=== PATIENT | female | born 1960 | race Caucasian/White ===

== ENCOUNTER 2016-04-12 13:01 | Inpatient (IN) | payer OTHER ==
[~2016-04-12] VITALS: Ht 170.2 cm; Wt 75.7 kg
[~2016-04-12 13:01] MED LIST: *GLUCOMETE; *MAMMOGRAM; *MAYHAVE; /AMIT100TA PO; /ESOM40CA; /ESOM40CA OR; /GLIM2TA; /GLIM4TA; /GUAIMAX PO; /INSULEV SC; /INSULEV SQ; /INSUNPH SC; /INSUREG SQ; /IPRA3SP INH; /ONDA4TA; /ONDA4TA OR; /ONDA4TA PO; /PANT40TA PO; /RANI15TA PO; /SUCR1TA OR; /SUCR1TA PO; 3 DA0.1C TOP; A AND D TD; ACET650T12 PO; ACET65TA; ADVAIR250 INHALATION; ADVAIR500 INHALATION; AFRI0.65; ALBOTERNEB INHALATION; ALBU17IN INH; ALBU17IN2 INH; ALBU17IN2 INJ; ALBU83IN; ALBU83IN IN; ALBU83IN INH; ALBUTEROL INH; ALBUTEROL INH INH; ALBUTEROL INHALATION; ALCOHOL TOP; ALLE180T33 PO; ALLE25CA PO; AMAR1TAB PO; AMARYL PO; AMIT10TA2 PO; AMIT150T; AMIT150T OR; AMIT150T PO; AMIT24CA PO; AMIT50TA PO; AMIT50TA2; AMIT50TA2 OR; AMIT50TA2 PO; AMITIZA PO; AMITRIP50 PO; AMITRIPTYLINE; AMITZA PO; AMMO12LO TOP; ASPI81TA13 PO; ASPI81TA3 OR; ASTELIN; ASTELIN INH; ASTELIN NASAL SPRAY; ATARAX25 PO; ATROVENT0.02% INH; AUG875 PO; AURASOL TOPICAL; AZEL0.1S3; AZELASTINE; Amitiza PO; BACID PO; BACTROCREA TOPICALLY; BACTROOINT TOPICALLY; BATTERY; BENA25CA2 PO; BISA10SU2; CALALOT3 TOP; CATATTS2 TOPICALLY; CEFTIN250 PO; CETI10TA; CHOL4PKT PO; CHOLPOW PO; CLAR10CA3 PO; CLAR1TAB2 PO; CLAR5CHW OR; CLAR5CHW PO; CLARITD12H PO; CLARITIN; CLARITIN PO; CLARITIN10 PO; COLA100C PO; COLA100C2; COLA100C2 OR; COLA100C2 PO; COLA50CA3 PO; COLACE PO; CORTISPOR OTIC; CYMBALTA30 PO; CYMBALTA60 PO; Cholestyramine PO; DESIOIN3; DESONIDECR TOPICAL; DICL0.1S7 TD; DIFLUC100 PO; DIFLUC150 PO; DILA2TAB OR; DILA2TAB PO; DILA2TAB2 PO; DILA4TAB PO; DILAUDID PO; DIPH2.5L; DIPH2.5L PO; DIPH2.5T14 PO; DOCU10CA PO; DOXYCYC100 PO; EFUDEX EXT; ELIDEL 1%; ELIDEL TOPICAL; ELOCONCR TOPICAL; Elavil PO; FERR325T OR; FERROUS325 PO; FEXO60CA PO; FLAGYL250 PO; FLONASESPR NASAL; FLOVENT110 PO; GAS-80CH; GEMF600T PO; GLUC1000; GLUC1000 OR; GLUC1000 PO; GLUCCOSEAC TOPICAL; GLUCLIQ7 PO; GLUCOP1000 PO; GLUCOPH500 PO; GLUCOSE TEST; HEPA100PFS IV; HEPA1INJ IV; HUMUINJ; HUMUINJ IJ; HUMUINJ SQ; HUMULINR SC; HYDR1OI TOP; HYDR4TAB PO; HYDROCCR1 TOPICAL; IMODIUM; INSUDET SC; INSUH10VL SC; INSULIN HUMULIN R; INSULIN LEVEMIR SQ; IPRA2IN INH; K-TA1TAB PO; KEFLEX250 PO; KEFLEX500 PO; KETO0.02 OU; KETOTIFEN FUMARATE; LAC-HYDRIN TOP; LACT10SO15 PO; LACT10SO8 OR; LACT10SO8 PO; LACT20EL PO; LANCMIS; LANCMIS SUB Q; LANTUS SQ; LEVA750T PO; LEVAQUI250 PO; LEVAQUI500 PO; LIDO4CRE2 TOP; LIDO5DIS TOP; LIDO5DIS36 TD; LIDOCAINE JELLY 2% TOP; LIDOCAINE JELLY TOP; LIDOCAINE/PRILOCAINE TOP; LIDOPOW EXT; LOMO2.5T PO; LOMOTA OR; LOMOTA PO; LOPI600T OR; LOPI600T PO; LORTAB5 PO; LORTTAB5 PO; MACROBID PO; MAG CITRATE PO; MAG-TAB; MAG400TA PO; MAGN1INJ2 IV; MAGN20IN4 IV; MAGN400C2 PO; MAGN400T5 PO; MAGN500T2 OR; MAGN500T2 PO; MAGNESIUM OXIDE; MAMMOGRAM; MEDROLDP PO; METF1000 PO; METF500T PO; METFORMIN; METO10TA2; METO5TAB2 OR; METO5TAB2 PO; METROCR.75 TOPICAL; MICR10CA PO; MILKSUS; MILKSUS PO; MINI2CAP; MINI2CAP OR; MINI2CAP PO; MINIPRESS PO; MIRA3350 PO; MIRALAX PO; MIRALEX OR; MIRALEX PO; MOM30SS PO; MOME50SP; MORP15TA4; MORP30TA4; MORPHINE SULFATE IR; MS C15TA5; MS C15TA5 PO; MUCINEX ER PO; MUCINEX OR; MUCINEX PO; MULT1TAB8 PO; MULTIVIT OR; MULTIVIT PO; MULTLIQ7; MYCOLOG2; NASA1SPR; NASA55AE; NASOCORT; NASONEX NASAL; NEEDLESFIN SQ; NEXI40GR PO; NEXIUM40 PO; NORMSALNS INHALATION; NOVO70VL SC; NYSTATIN POWDER TOP; NYSTATIN TOP; NYSTATINCR TOPICAL; NYSTOP TOP; NYSTPOW4 TOP; ONDA1TAB16 PO; ONDA2VL IV; ONDA4VLL IM; PEDISOL2 PO; PEG1POW PO; PENN1.5S2 TD; PENNSAID DROPS TOP; PEPTO BISMOL PO; PERC5TAB8 OR; PERC7.5T8 OR; POLYETHYLENE GLYCOL; POTA1TAB14 PO; POTA20TA PO; PRAZ2CAP PO; PRED10TA PO; PREDNISO10 PO; PREDNISO20 PO; PREDNISO50 PO; PREMAR1.25 PO; PREMARI625 PO; PREVACID15 PO; PROA1AER IN; PROCTOSOL HC PR; PROCTOSOL PR; PROCTOSOL TOP; PROV90AE; PROVENTILI; PROVENTILI INHALATION; PYRIDIU100 PO; PYRIDIU200 PO; QUES4POW PO; QUESTRAN; RANI150T PO; REGL10TA6 PO; REGLAN10 PO; SALI0.9I2 IV; SENN-22 PO; SENN15TA2 PO; SENN8.6T14; SENN8.6T14 OR; SENO8.6T10 PO; SENO8.6T5 OR; SENO8.6T9 PO; SENOKOT PO; SEREVENTIN PO; SILVADENE TOPICAL; SIMV10TA2 PO; SIMV20TA2 PO; SLOWTAB; STOO100C PO; SUCR1TA PO; SUCRPOW; SYMB16INH INH; SYMB80INH INH; SYMBICORT INH; SYR.5; SYRINS1CC SUBQ; TAP WATER ENEMA PR; TEQUIN400 PO; TESS100C PO; TESSALO100 PO; THERGRAN PO; TIZA2CAP3 PO; TIZA2TAB3 PO; TRIA55SP; TRICOR48 PO; TUMS500C; TUMS500C OR; TUMS500C PO; TUSSIONEX PO; TYL PO; TYLE325T5 PO; ULTRAM50 PO; VALI2TAB; VERA27.5; VERAMYST; VICO5TAB; VICO5TAB OR; VICOBULK OR; VICODAN PO; VICODIN PO; VICODINES TAB; VITMTA PO; VOLT1GEL; VOLT1GEL EX; VOLT1GEL EXT; VOLT1GEL TOP; VOLT1GEL2 TOP; Z-PAK PO; ZADITOR; ZANT150T PO; ZANTAC150 PO; ZITH200S OR; ZITHROM250 PO; ZITHROM500 PO; ZITHROZPAK PO; ZOCO20TA PO; ZOFR8TAB; ZOFR8TAB4 PO; ZYRT10CA PO; ZYRTECD12 PO; [UNRECOGNIZED DRUG - CODE]; [UNRECOGNIZED DRUG - CODE]; [UNRECOGNIZED DRUG - CODE] EXT; [UNRECOGNIZED DRUG - CODE] IV; [UNRECOGNIZED DRUG - CODE] PO; [UNRECOGNIZED DRUG - CODE] PO; [UNRECOGNIZED DRUG - CODE] PO; [UNRECOGNIZED DRUG - CODE] TOP; [UNRECOGNIZED DRUG - CODE] TOPICAL; [UNRECOGNIZED DRUG - OTHER]; [UNRECOGNIZED DRUG - OTHER]; [UNRECOGNIZED DRUG - OTHER]; [UNRECOGNIZED DRUG - OTHER]; [UNRECOGNIZED DRUG - OTHER]; [UNRECOGNIZED DRUG - OTHER]; [UNRECOGNIZED DRUG - OTHER]; [UNRECOGNIZED DRUG - OTHER]; [UNRECOGNIZED DRUG - OTHER]; [UNRECOGNIZED DRUG - OTHER] PO; [UNRECOGNIZED DRUG - OTHER] PR; [UNRECOGNIZED DRUG - OTHER] RECTALLY; [UNRECOGNIZED DRUG - OTHER] SC; [UNRECOGNIZED DRUG - OTHER] SC; [UNRECOGNIZED DRUG - OTHER] TD; [UNRECOGNIZED DRUG - SUPPLY]; [UNRECOGNIZED DRUG - SUPPLY] -; astelin; astepro; desitin; diclofenac PO; elavil; lidoderm patch TD; nasocort; polyethylene glycol; questran OR; saline nasal spray; veramyst; voltaren gel
[2016-04-12 14:26] LABS: BASO # 0.1 K/mm3 (0.0-0.2); BASO % 1.5 % (0.0-1.0); EOS # 0.1 K/mm3 (0.0-0.50); EOS % 1.5 % (0.0-3.0); LARGE UNSTAINED CELL # 0.1 K/mm3 (0.0-0.4); LYMPH # 1.5 K/mm3 (1.5-4.5); LYMPH % 26.9 % (24.0-44.0); MEAN CORPUSCULAR HEMOGLOBIN 30.3 pg (27.0-33.0); MEAN CORPUSCULAR VOLUME 94.7 fl (80.0-96.0); MONO # 0.3 K/mm3 (0.0-0.8); MONO % 5.2 % (0.0-5.0); NEUTROPHILS # 3.2 K/mm3 (1.8-7.7); NEUTROPHILS % 62.8 % (36.0-66.0); PLATELET COUNT, AUTOMATED 305 k/mm3 (150-450); RED CELL DISTRIBUTION WIDTH 14.1 % (11.5-14.5); WHITE BLOOD COUNT 5.1 K/mm3 (4.0-10.0)
[2016-04-12] MEDS ORDERED: HYDROmorphone 2 MG TAB As Ordered ONE ×2 (14:26→18:59)
[2016-04-12 14:44] LABS: ANION GAP 11 MEQ/L (8-16); BLOOD UREA NITROGEN 11 MG/DL (7-18); CALCIUM LEVEL 10.1 MG/DL (8.5-10.1); CARBON DIOXIDE LEVEL 29 MEQ/L (21-32); CHLORIDE LEVEL 97 MEQ/L (98-107); GLOMERULAR FILTRATION RATE > 60.0 (>51); GLUCOSE, FASTING 251 MG/DL (70-105); MAGNESIUM LEVEL 2.2 MG/DL (1.8-2.4); POTASSIUM SERUM 4.1 MEQ/L (3.5-5.1); SODIUM LEVEL 137 MEQ/L (136-145)
--- NOTE | 2016-04-12 15:01 | REP ---
PA chest: Cardiac silhouette is moderately enlarged without change. There is a right IJ venous Port-A-Cath with tip in the expected location of the atriocaval junction. Bibasilar atelectasis/scarring and/or infiltrates are noted, left greater than right. A spinal stimulator is identified with superior tip projected over the T9 and T10 vertebral bodies. Impression : stable moderate cardiomegaly with bibasilar atelectasis/scarring and/or infiltrate, not significantly changed Flat and upright KUB: Numerous surgical clips are projected over the abdomen and pelvis consistent with previous postsurgical changes well as ventral hernia repair. The patient does have a left lower quadrant ileostomy. There is no evidence of bowel obstruction or free intraperitoneal air. There is small to moderate air is present within the stomach Impression : stable moderate cardiomegaly with bibasilar atelectasis/scarring and/or infiltrate, not significantly changed Signed by Kerry Ham MD 04/12/2016 02:53 P
[2016-04-12] MEDS ORDERED: ACETAMINOPHEN TAB 650MG DOSE (2X325MG) PO PRN (15:15)
[2016-04-12] MEDS ORDERED: GLUCOSE 4 GM CHEW TABLET PO PRN (15:45)
[2016-04-12] MEDS ORDERED: diphenhydrAMINE 25 MG CAP PO PRN (15:45)
[2016-04-12] MEDS ORDERED: DEXTROSE 50% 50 ML SYRINGE IV PRN (15:45)
[2016-04-12] MEDS ORDERED: ALBUTEROL 90 MCG/ACT 8GM HFA INHALER INH PRN (15:45)
[2016-04-12] MEDS ORDERED: GLUCAGON FOR INJ 1 MG VIAL (J1610) SC PRN (15:45)
[2016-04-12] MEDS ORDERED: GAS125CH PO (15:48)
[2016-04-12] MEDS ORDERED: TIZA2TA PO (15:48)
[2016-04-12] MEDS ORDERED: PEDISOL2 PO (15:51)
[2016-04-12] MEDS ORDERED: LACT10SO29 PO (15:51)
[2016-04-12] MEDS ORDERED: ONDA4VLL IM (15:55)
--- NOTE | 2016-04-12 16:08 | HPEPDOC ---
General Date of Admission Apr 12, 2016 at 15:14 Primary Care Physician: Tutu Sanchez MD Chief Complaint The patient is a 55-year-old female admitted with a reason for visit of Abdominal Pain. Source: Patient, Family Exam Limitations: No limitations History of Present Illness 55-year-old female with a past medical history of type 2 diabetes mellitus, asthma, dyslipidemia, and a complex past surgical history involving multiple hernia repairs listed below presents to the ER for the fifth time in the last 7 days with a chief complaint of abdominal pain. The patient states that for the past few days she has had a decreased output from her ostomy bag. She states that she has not been able to keep food down because she keeps on vomiting. She denies any episodes of fevers, chills, chest pain, lightheadedness, dizziness, recent travel, antibiotic use, or any sick contacts. Of note, the patient has had multiple imaging studies done over the last 7 days including an abdominal x- ray today which have not revealed any acute findings. A call was placed the patient's primary care physician Dr. Sanchez and he advised an observation admission for the patient to monitor ostomy input and output. In the ER, the patient's laboratory findings were all found to be within normal limits. There are no overt signs of obstruction or any kind of underlying infection noted. We will admit the patient for observation and continue to monitor the patient's input and output from the ostomy bag. Home Medications Scheduled (Nasacort Allergy 24Hr) 55 Mcg/Act Spr 1 SPRAY NA QHS (Reported) (Glucerna) 1 Liq Liq 1 LIQ PO QPM (Reported) (Pedialyte) 1 Faisal Faisal 1 FAISAL PO DAILY (Reported) Amitriptyline HCl (Amitriptyline HCl) 50 Mg Tab 150 MG PO QHS (Reported) Amitriptyline HCl (Amitriptyline HCl) 50 Mg Tab 50 MG PO QAM (Reported) Azelastine Hydrochloride (Azelastine HCl) 137 Mcg/[place] Spr 1 SPRAY NA BID ( Reported) Budesonide/Formoterol (Symbicort 160-4.5 Mcg/Act) 60 Puff/Inhaler Aers 2 PUFF INH BID (Reported) Cetirizine HCl (Zyrtec Allergy) 10 Mg Cap 10 MG PO DAILY (Reported) Gemfibrozil (Lopid) 600 Mg Tab 600 MG PO DAILY (Reported) Heparin Sodium Flush (Porcine) (Heparin Lock Flush) Unknown Strength Inj Unknown Dose IV 2XW (Reported) FRIDAY AND FRIDAY Insulin Aspart Protamine/Aspar (Novolog Mix 70/30 (70-30) 100 Unit/ml) 1 Units/ 0.01 Ml Susp 20 UNITS SC DAILY (Reported) TAKE WITH LUNCH Insulin Detemir (Levemir) 1 Units/0.01 Ml Susp 30 UNITS SC DAILY (Reported) Magnesium Oxide (Magnesium Oxide 400) 400 Mg Tab 400 MG PO BID (Reported) Metoclopramide HCl (Reglan) 10 Mg Tab 10 MG PO ACHS (Reported) Ondansetron (Ondansetron HCl) 4 Mg/2 Ml Inj 4 MG IM DAILY (Reported) Potassium Chloride (Klor-Con M20) 20 Meq Tabcr 20 MEQ PO DAILY (Reported) Ranitidine HCl (Ranitidine HCl) 150 Mg Tab 1 TAB PO BID (Reported) Sucralfate (Carafate) 1 Gm Tab 1 GM PO ACHS (Reported) Tizanidine HCl (Tizanidine HCl) 2 Mg Tab 1 MG PO BID (Reported) Scheduled PRN (Ketotifen Fumarate) 0.025 % Atul 1 DROP OU PRN PRN PRN ALLERGIES (Reported) (Ammonium Lactate) 12 % Lot 1 DOSE TOP BID PRN PRN DRY SKIN (Reported) Albuterol Sulfate (Ventolin Hfa) 200 Puff/8 Gm Aers 2 PUFF INH Q4H PRN PRN SHORTNESS OF BREATH (Reported) Diphenhydramine HCl (Benadryl) 25 Mg Cap 25 MG PO PRN PRN PRN ALLERGIES ( Reported) Hydromorphone HCl (Dilaudid) 4 Mg Tab 4 MG PO Q4H PRN PRN PAIN (Reported) MDD 5 TABLETS Lactulose (Lactulose) 10 Gm/15 Ml Faisal 30 ML PO Q4H PRN PRN CONSTIPATION ( Reported) Simethicone (Gas Relief Extra Strength) 125 Mg Chw 125 MG PO QID PRN PRN GAS PAIN (Reported) Allergies Coded Allergies: Latex (Verified Allergy, Severe, THROAT CLOSES, 06/06/14) Oxycodone (Verified Allergy, Intermediate, HIVES, 07/13/12) Penicillins (Verified Allergy, Intermediate, HIVES, 07/13/12) Bitely (Verified Allergy, Intermediate, HIVES, 01/11/15) Sulfa Drugs (Verified Allergy, Intermediate, HIVES, 01/11/15) TAPE (Verified Allergy, Intermediate, PAPER TAPE - BLISTERS,HIVES, 06/05/10 ) Tomato (Verified Allergy, Intermediate, HIVES, 01/11/15) Azithromycin (Unverified Allergy, Mild, HIVES, 07/07/14) Nitrofurantoin (Unverified Allergy, Mild, HIVES, 07/07/14) Quinolones (Verified Allergy, Mild, CIPRO, TEQUIN - HIVES, 07/13/12) Baclofen (Verified Allergy, Unknown, SHAKING, 07/13/12) Chlorpromazine (Verified Allergy, Unknown, 07/13/12) Colchicine (Verified Allergy, Unknown, 07/13/12) Fluphenazine (Verified Allergy, Unknown, 07/13/12) Gabapentin (Verified Allergy, Unknown, 07/13/12) Ipratropium (Unverified Allergy, Unknown, 07/07/14) Mesoridazine (Verified Allergy, Unknown, 07/13/12) Perphenazine (Verified Allergy, Unknown, 07/13/12) Prochlorperazine (Verified Allergy, Unknown, 07/13/12) Red Dye (Verified Allergy, Unknown, red food dyes, 07/13/12) Tramadol (Verified Allergy, Unknown, 07/13/12) Trifluoperazine (Verified Allergy, Unknown, 07/13/12) Morphine (Verified Adverse Reaction, Severe, SEVERE H/A WITH LARGE DOSES, 07/13/12) Codeine (Verified Adverse Reaction, Intermediate, "OUT OF BODY", 07/13/12) Droperidol (Verified Adverse Reaction, Intermediate, "OUT OF BODY", EYES ROLL BACK IN HEAD, 07/13/12) Iodine (Verified Adverse Reaction, Intermediate, SEIZURES, 01/11/15) Lidocaine (Verified Adverse Reaction, Intermediate, ONLY LIDODERM PATCH: INCREASES HR WHEN APPLIED TO UPPER BODY, 07/13/12) Meperidine (Verified Adverse Reaction, Intermediate, "OUT OF BODY", SHAKY , 07/13/12) Promethazine (Verified Adverse Reaction, Intermediate, "OUT OF BODY"- PHENOTHIAZINES, 07/13/12) Replaces PHENOTHIAZINES Propoxyphene (Verified Adverse Reaction, Intermediate, "OUT OF BODY", ) Theophylline (Verified Adverse Reaction, Intermediate, SEIZURES, 01/11/15) Albuterol (Unverified Adverse Reaction, Mild, SHAKY, 07/07/14) Aspirin (Verified Adverse Reaction, Mild, ULCERS, 07/13/12) Fentanyl (Verified Adverse Reaction, Mild, NERVOUS, 07/13/12) Hydrocodone (Unverified Adverse Reaction, Mild, CONFUSION, 07/07/14) Lorazepam (Verified Adverse Reaction, Mild, ALTERS MIND, HALLUCINATIONS, ) Midazolam (Verified Adverse Reaction, Mild, NERVOUS, 07/13/12) Pregabalin (Verified Adverse Reaction, Mild, SHAKING/ANXIETY, 01/11/15) Tiagabine (Verified Adverse Reaction, Mild, NERVOUS, 07/13/12) Past Medical History Medical History As noted in HPI Surgical History Removal of a scalp tumor in 1984. Lumpectomies age 16 and 21. Total hysterectomy. Two ovarian cysts and mass at age 21. Bilateral sympathectomy in 1987. Arteriovenous (AV) fistula repair in the left leg 1988. Cholecystectomy in the . Small bowel obstruction 2001. Abdominal hernia repair in 2004. Ventral hernia repair in 2009. Dorsal column stimulator placement and replacement 2010. Small portion of the small bowel resected and ventral hernia repair, ileostomy in 2012. Cyst removed from right nostril by Dr. Carrillo. Repair of two hernias and a stoma in 2012. Two hernia repairs in 2013. Parastomal hernia repair June 2014. Family History Significant Family History: No pertinent family hx Social History * Smoker: non-smoker Alcohol: denies Drugs: denies Review of Symptoms Other systems 10 point review of systems negative unless otherwise specified in HPI. Physical Examination ENT Exam: Positive: Atraumatic, Mucous membr. moist/pink Chest Exam: Positive: Clear to auscultation, Normal air movement Heart Exam: Positive: Rate Normal, Regular Rhythm Telemetry: Positive: Sinus Abdomen Exam: Positive: BS Hypoactive, Other (mild tenderness to deep palpation in the left lower quadrant. No rebound tenderness, guarding, or rigidity noted. Left lower quadrant ostomy noted with no surrounding erythema, tenderness, or purulent discharge.), Soft Extremity Exam: Negative: Tenderness Laboratory Data Labs 24H Laboratory Tests 2 04/12/16 14:11: Anion Gap 11, White Blood Count 5.1, Red Blood Count 3.81L, Hemoglobin 11.6L, Hematocrit 36.1, Mean Corpuscular Volume 94.7, Mean Corpuscular Hemoglobin 30.3 , Mean Corpuscular Hemoglobin Concent 32.0, Red Cell Distribution Width 14.1, Platelet Count 305, Neutrophils (%) (Auto) 62.8, Lymphocytes (%) (Auto) 26.9, Monocytes (%) (Auto) 5.2H, Eosinophils (%) (Auto) 1.5, Basophils (%) (Auto) 1.5H , Neutrophils # (Auto) 3.2, Lymphocytes # (Auto) 1.5, Monocytes # (Auto) 0.3, Eosinophils # (Auto) 0.1, Basophils # (Auto) 0.1, Blood Urea Nitrogen 11, Creatinine 0.80, Sodium Level 137, Potassium Level 4.1, Chloride Level 97L, Carbon Dioxide Level 29, Calcium Level 10.1, Glomerular Filtration Rate > 60.0, Large Unclassified Cells # 0.1, Large Unclassified Cells % 2.0, Magnesium Level 2.2 CBC/BMP Laboratory Tests 04/12/16 14:11 Calcium Level 10.1, Red Blood Count 3.81 L, Mean Corpuscular Volume 94.7, Mean Corpuscular Hemoglobin 30.3, Mean Corpuscular Hemoglobin Concent 32.0, Red Cell Distribution Width 14.1, Neutrophils (%) (Auto) 62.8, Lymphocytes (%) (Auto) 26.9, Monocytes (%) (Auto) 5.2 H, Eosinophils (%) (Auto) 1.5, Basophils (%) ( Auto) 1.5 H, Neutrophils # (Auto) 3.2, Lymphocytes # (Auto) 1.5, Monocytes # ( Auto) 0.3, Eosinophils # (Auto) 0.1, Basophils # (Auto) 0.1 Assessment/Plan Problems: (1) Abdominal pain Status: Chronic Response to Treatment: Stable Problem Text: X-ray of the abdomen with no acute findings. CT abdomen imaging noted from 04/06, also with no acute findings. Patient's abdomen mildly distended, however soft on palpation. Ostomy site and left lower quadrant noted with no remarkable findings. We will continue to have the patient eat a by mouth diet and monitor input and output. Continue bowel care regimen. (2) Diabetes mellitus type 2 in obese Status: Chronic Response to Treatment: Stable Problem Text: We will continue the patient on Levemir 15 units daily, and insulin sliding scale (3) Asthma Status: Chronic Response to Treatment: Stable Problem Text: No acute shortness of breath or wheezing at this time Continue albuterol, Symbicort (4) GERD (gastroesophageal reflux disease) Status: Chronic Response to Treatment: Stable Problem Text: Continue current regimen (5) Hypomagnesemia Status: Chronic Response to Treatment: Stable Problem Text: Patient serum magnesium levels actually noted to be within normal limits. Plan / VTE VTE Prophylaxis Ordered?: Yes DOREEN PAREDES MD Apr 12, 2016 16:08
[2016-04-12] MEDS: SYMBICORT 160/4.5MCG INHALER 6GM INH SCH (21:00)
[2016-04-12] MEDS: HumaLOG INSULIN (NovoLOG) PER UNIT SC SCH (21:00)
--- NOTE | 2016-04-12 21:44 | EDDOCDS ---
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 nothing out of dy ostomy for 1 week. Risk factors: the patient reports no vaginal bleeding. Adult Sepsis Screening: The patient does not have new or worsening altered mentation. Patient's respiratory rate is less than 22. Systolic blood pressure is greater than 100. Patient has a qSOFA score of 0- Negative Sepsis Screen. Suicide/Homicide risk assessment- the patient denies having any suicidal and/or homicidal ideations and does not present with any other emotional, behavioral or mental health complaints. 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 Transition of care: patient was not received from another setting of care. 13:04 Acuity: THADDEUS Level 3 dy 13:04 Method Of Arrival: Walkin/Carried/Asstd dy Triage Assessment: 13:11 General: Appears in no apparent distress. Pain: Location: suprapubic area. HIV dy screening NA for this visit Offered previously. GI: Reports lower abdominal pain. MIRROR INSPECTOR: 13:11 LMP N/A - Hysterectomy dy Historical: - Allergies: Albuterol (shaky); Aspirin (stomach irritation); Ativan (hallucination); Azithromycin (Hives); BACLOFEN (shakiness); Chlorpromazine (shakiness); Ciprofloxacin (Hives); Codeine Phosphate (anxious); Colchicine (anxious); Darvocet-N 100 (nervous); Droperidol (Dystonic reaction); Fentanyl (nervous); Fluphenazine; GABAPENTIN (Rash); Gabitril (nervous); hydrocodone (confusion); IODINEIODINE CONTAINING ("body our of control"); Ipratropium [place]; Latex (Anaphylaxis); Lidoderm (Rash); Lyrica (nervous); Macrobid (shaky); Meperidine (Sleepy); mesoridazine; Midazolam (shaky and jumpy); Morphine (severe RAMIREZ); Oxycodone HCl (Hives); PENICILLINS (Hives); perphenazine (nervous); Phenergan (nervous); Prochlorperazine Maleate; Promethazine (Dystonic reaction); QUINOLONES (shaky, itchy); Readi-Cat 2; Red Dye; SULFA (SULFONAMIDES) (Hives); Tape (Rash); Theophylline (Seizures); TIAGABINE; Toradol (itchy); Tramadol HCl (nervous); Trifluoperazine; Vicodin (shaky, nervous); - Home Meds: 1. albuterol sulfate 90 mcg/actuation Inhl aepb 2 puffs every 4 hours month ago 2. Dilaudid 4 mg Oral tab 1 tab every 4 hours (Last dose: 04/12/2016 06:30) 3. Zofran IM 4 mg every 8 hours (Last dose: 04/12/2016 07:00) 4. tizanidine 2 mg oral tab 1 tabs BID PRN 5. ranitidine HCl 150 mg Oral tbef 150 mg twice a day 6. Reglan 10 mg Oral tab 1 tab 30 mins before meals 7. Symbicort 160-4.5 mcg/actuation inhalation HFAA 2 puffs 2 times per day 8. amitriptyline 50 mg Oral tab 1 tab once daily 1 tab in am , 3 tabs at bedtime 9. astelin 137mcg/spray twice a day 10. Benadryl 25 mg Oral cap 1 cap as needed 11. Carafate 1 gram Oral tab 1 tab 4 times per day 12. cetirizine 10 mg oral tab 1 tab once daily 13. gemfibrozil 600 mg Oral tab daily 14. Glucerna Oral liqd daily 15. heparin flush fro port 16. Levemir 30 units subcutaneous daily 17. Lomotil 2.5-0.025 mg oral tab as needed 18. magnesium oxide 400 mg Oral tab 400 mg three times a day 19. Nasacort AQ 55 mcg Nasal spra 1 spray once daily 20. Novolog 20 units Sub-Q daily - PMHx: acute bronchitis; Asthma; chronic abdominal pain; chronic pain syndrome; Diabetes - IDDM: controlled; DVT; Fatty Liver, Non-alchoholic; GERD; Hernia; Hypercholesterolemia; hypokalemia; hypomagnesia; Kidney stones; necrotic bowel; UTI; - PSHx: Cholecystectomy; Lumpectomy- Left; Lumpectomy- Right; bilateral knee surgery; Appendectomy; Hysterectomy; Ileostomy Construction; av fistula left leg; tumors removed from right arm; - The history from nurses notes was reviewed: and I agree with what is documented. - Social history: Smoking status: Patient states was never smoker of tobacco. No barriers to communication noted, The patient speaks fluent Korean, Speaks appropriately for age. - : The pt / caregiver states he / she is not on anticoagulants. Home medication list is obtained from the patient. - Exposure Risk Screening:: None identified. - Immunization history:: All immunizations up-to-date. - Family history: Not pertinent. - Social history:: the patient is a non-smoker, the patient does not drink alcohol. Screenin:17 Screening information is obtained from the patient. Fall risk: At risk due to gait jmb disturbance, Patient uses cane. Assistance ADL's: requires no assistance with activities of daily living. Abuse/DV Screen: The patient / caregiver reports he/she is: not in a situation that causes fear, pain or injury. Nutritional screening: No deficits noted. home support is adequate. 16:50 Advance Directives: Currently, there is a health care proxy, Sabina Olson - Mother. lf1 Assessment: 13:17 General: Appears in no apparent distress, Behavior is appropriate for age, cooperative, jmb Patient up to bathroom, voices she needed to urinate. . Pain: Location: abdomen Pain currently is 9 out of 10 on a pain scale. Neurological: Level of Consciousness is awake, alert, obeys commands, Oriented to person, place, time, Farrowing Manager are equal bilaterally Gait is steady, Speech is normal, Facial symmetry appears normal, Facial symmetry: tongue is midline. Cardiovascular: Capillary refill < 3 seconds Heart tones present Pulses are all present. Rhythm is regular. Respiratory: Airway is patent Respiratory effort is even, unlabored, Respiratory pattern is regular, symmetrical, Breath sounds are clear bilaterally. GI: Abdomen is distended, Colostomy site Colostomy has liquid stool present in bag. Bowel sounds present X 4 quads. hypoactive in right upper quadrant, left upper quadrant and right lower quadrant Abd is soft X 4 quads. Derm: Skin is normal. Musculoskeletal: Range of motion intact in all extremities. 14:13 General: Appears in no apparent distress, comfortable, Behavior is appropriate for age, jmb cooperative, Patient laying on stretcher with family at bedside. Patient watching television, appears in no distress or discomfort. Patient voices no complaints at this time. . General: Patient and family at bedside discussing method of pain medication administration. NO discussion about pain medication at this time or provider discussion. Family discussed that due to not accessing port, best method would be to do injection. . Neurological: Level of Consciousness is awake, alert, obeys commands, Oriented to person, place, time. Respiratory: Airway is patent Respiratory effort is even, unlabored, Respiratory pattern is regular, symmetrical. 14:20 General: Family pulled this business writer into room, asked this business writer who was preparation room manager for Dr. nancy Sanchez's office. Informed family and patient that this business writer was not sure. Family stated that she walked to Dr. Antunez and asked him if they were going to give her anything for pain in which family stated "He said he is going to give her her home medication." Family reported "Her home medication doesn't help her, if it did then why would I bring her in here?" This business writer stated that he is unsure of plan until provider discusses with this business writer. Family then asked if Paxton Vazquez could see her instead, informed family that they were told that a physician must see patient instead of another provider and that Paxton Vazquez is an WELT BEATER in which family stated oh, ok, so he wouldn't be able to see patient then due to request of Dr. Sanchez. NO further complaints at this time. . 15:09 General: Appears in no apparent distress, comfortable, Behavior is appropriate for age, jmb cooperative, Previous concern report to Nurse Oil Extractor Selena Becker RN. Patient laying on stretcher, appears comfortable. NO voiced complaints at this time. . Neurological: Level of Consciousness is awake, alert, obeys commands, Oriented to person, place, time. Respiratory: Airway is patent Respiratory effort is even, unlabored, Respiratory pattern is regular, symmetrical. 15:20 General: Hospitalist at bedside. lf1 15:29 Adult Sepsis Screening: The patient does not have new or worsening altered mentation. lf1 Patient's respiratory rate is less than 22. Systolic blood pressure is greater than 100. Patient has a qSOFA score of 0- Negative Sepsis Screen. General: Appears in no apparent distress, comfortable, Behavior is cooperative. Pain: Location: right lower quadrant Pain currently is 10 out of 10 on a pain scale. Quality of pain is described as "smarts" Alleviated by nothing. Neurological: Level of Consciousness is awake, alert. EENT: No deficits noted. Respiratory: Respiratory effort is even, unlabored. GI: Abdomen is distended, obese, Colostomy site Pt reports minimal output in colostomy bag over last week. States only about 1 inch ribbon of stool present in bag over last week. When bag was observed to contain about 300 of liquid stool pt. stated that had accumulated since about noon today but that she normally has a more formed stool so the liquid didn't count. 16:42 General: Appears in no apparent distress, comfortable, Behavior is cooperative. Pain: lf1 Location: right lower quadrant Pain currently is 10 out of 10 on a pain scale. Neurological: Level of Consciousness is awake, alert. Respiratory: Respiratory effort is even, unlabored. Derm: Skin is normal. 18:51 General: Appears in no apparent distress, comfortable, Behavior is cooperative. Pain: lf1 Location: right lower quadrant Pain currently is 10 out of 10 on a pain scale. Neurological: Level of Consciousness is awake, alert. Respiratory: Respiratory effort is even, unlabored. 19:05 General: Appears in no apparent distress, comfortable, Behavior is cooperative. Pain: jf3 Location: left upper quadrant and left lower quadrant Pain currently is 9 out of 10 on a pain scale. Neurological: Level of Consciousness is awake, alert, Oriented to person, place, time. Cardiovascular: Capillary refill < 3 seconds Heart tones S1 S2 present Chest pain is denied. Respiratory: Airway is patent Respiratory effort is even, unlabored, Respiratory pattern is regular, symmetrical, Breath sounds are clear bilaterally. GI: Abdomen is obese, Colostomy site is clean and dry. Ostomy appliance is intact. Bowel sounds present X 4 quads. Abd is soft X 4 quads Abd is tender to palpation in left upper quadrant and left lower quadrant. Derm: Skin is pale. 20:23 General: Appears in no apparent distress, comfortable, Behavior is cooperative. jf3 Neurological: Level of Consciousness is awake, Oriented to person, place, time. Neurological: Cardiovascular: Capillary refill < 3 seconds. Respiratory: Airway is patent Respiratory effort is even, unlabored, Respiratory pattern is regular, symmetrical. Derm: Skin is pale. 21:40 General: Appears in no apparent distress, comfortable. Pain: Pain currently is 5 out of jf3 10 on a pain scale. Neurological: Level of Consciousness is awake, alert, Oriented to person, place, time. Cardiovascular: Capillary refill < 3 seconds. Respiratory: Airway is patent Respiratory effort is even, unlabored, Respiratory pattern is regular, symmetrical. Derm: Skin is pale. Vital Signs: 13:03 BP 128 / 78; Pulse 91; Resp 18 S; Temp 97.1; Pulse Ox 98% on R/A; Weight 75.3 kg (R); dd6 Height 5 ft. 7 in. (170.18 cm) (R); 15:22 BP 143 / 64; Pulse 72; Resp 18; Temp 98.5(TE); Pulse Ox 96% on R/A; Pain 10/10; lf1 20:28 BP 122 / 68; Pulse 97; Resp 18; Temp 98.5(TE); Pulse Ox 93% on R/A; Pain 5/10; jf3 13:03 Body Mass Index 26.00 (75.30 kg, 170.18 cm) dd6 Vitals: 13:03 Log In Time: April 12, 2016 at 13:01. dd6 ED Course: 13:03 Patient visited by Eduardo Chaparro PCA. dd6 13:03 Tutu Sanchez MD is Private Physician. dd6 13:03 Patient moved to Waiting dd6 13:04 Patient moved to Pre RCE dd6 13:06 Triage Initiated dy 13:12 Patient moved to 15 dy 13:17 The patient / caregiver is instructed regarding the plan of care and ED course. jmb 13:20 Patient visited by Jam Serrano RN. jmb 13:25 Juan Antunez MD is Attending Physician. pc 13:51 Patient visited by Juan Antunez MD. pc 14:04 [facility] Payment Agreement was scanned into [employer] and attached to record. lg 14:15 Patient visited by Jam Serrano RN. jmb 14:15 CBC with Diff Sent. jmb 14:20 Magnesium Level Sent. jmb 14:20 MED Profile Sent. jmb 15:05 Leif Babb is Hospitalizing Provider. pc 15:10 Patient visited by Jam Serrano RN. b 15:20 Report received from Jam Serrano RN. lf1 15:21 Patient visited by Usha Garcia RN. lf1 15:27 Abdomen, Flat\\E\\Upright,PA Chest Returned. EDMS 15:33 Patient visited by Usha Garcia RN. lf1 16:43 No IV's were initiated during this patient's visit. No procedures done that require lf1 assistance. 16:44 Patient visited by Usha Garcia RN. lf1 16:51 Patient visited by Usha Garcia RN. lf1 18:59 Report given to Randy Kc RN. lf1 19:32 Patient visited by Randy Kc RN. jf3 Administered Medications: 14:35 Drug: Dilaudid - HYDROmorphone 4 mg [hydromorphone 2 mg tablet (2 tabs)] Route: PO; jmb 15:22 Follow up: BP 143 / 64; Pulse 72 bpm; Resp 18 bpm; Temp 98.5 Temporal; Pulse Ox 96% RA; 1 Pain 01/21 Adult 19:03 Drug: Dilaudid - HYDROmorphone 4 mg [hydromorphone 2 mg tablet (2 tabs)] Route: PO; jf3 Intake: 16:43 300 ML liquid stool emptied from colostomy bag by patient. 1 Order Results: Lab Order: CBC with Diff; SPEC'M 04/12/16 14:11 Test: WHITE BLOOD COUNT; Value: 5.1; Range: 4.0-10.0; Units: K/mm3; Status: F Test: RED BLOOD COUNT; Value: 3.81; Range: 4.00-5.40; Abnormal: Below low normal; Units: M/mm3; Status: F Test: HEMOGLOBIN; Value: 11.6; Range: 12.0-16.0; Abnormal: Below low normal; Units: g/dl; Status: F Test: HEMATOCRIT; Value: 36.1; Range: 36.0-47.0; Units: %; Status: F Test: MEAN CORPUSCULAR VOLUME; Value: 94.7; Range: 80.0-96.0; Units: fl; Status: F Test: MEAN CORPUSCULAR HEMOGLOBIN; Value: 30.3; Range: 27.0-33.0; Units: pg; Status: F Test: MEAN CORPUSCULAR HGB CONC; Value: 32.0; Range: 32.0-36.5; Units: g/dl; Status: F Test: RED CELL DISTRIBUTION WIDTH; Value: 14.1; Range: 11.5-14.5; Units: %; Status: F Test: PLATELET COUNT, AUTOMATED; Value: 305; Range: 150-450; Units: k/mm3; Status: F Test: NEUTROPHILS %; Value: 62.8; Range: 36.0-66.0; Units: %; Status: F Test: LYMPH %; Value: 26.9; Range: 24.0-44.0; Units: %; Status: F Test: MONO %; Value: 5.2; Range: 0.0-5.0; Abnormal: Above high normal; Units: %; Status: F Test: EOS %; Value: 1.5; Range: 0.0-3.0; Units: %; Status: F Test: BASO %; Value: 1.5; Range: 0.0-1.0; Abnormal: Above high normal; Units: %; Status: F Test: LARGE UNSTAINED CELL %; Value: 2.0; Range: 0.0-4.0; Units: %; Status: F Test: NEUTROPHILS #; Value: 3.2; Range: 1.8-7.7; Units: K/mm3; Status: F Test: LYMPH #; Value: 1.5; Range: 1.5-4.5; Units: K/mm3; Status: F Test: MONO #; Value: 0.3; Range: 0.0-0.8; Units: K/mm3; Status: F Test: EOS #; Value: 0.1; Range: 0.0-0.50; Units: K/mm3; Status: F Test: BASO #; Value: 0.1; Range: 0.0-0.2; Units: K/mm3; Status: F Test: LARGE UNSTAINED CELL #; Value: 0.1; Range: 0.0-0.4; Units: K/mm3; Status: F Lab Order: MED Profile; [facility] 04/12/16 14:11 Test: GLUCOSE, FASTING; Value: 251; Range: 70-105; Abnormal: Above high normal; Units: MG/DL; Status: F Test: BLOOD UREA NITROGEN; Value: 11; Range: 7-18; Units: MG/DL; Status: F Test: CREATININE FOR GFR; Value: 0.80; Range: 0.55-1.02; Units: MG/DL; Status: F Test: GLOMERULAR FILTRATION RATE; Value: > 60.0; Range: >51; Status: F Test: SODIUM LEVEL; Value: 137; Range: 136-145; Units: MEQ/L; Status: F Test: POTASSIUM SERUM; Value: 4.1; Range: 3.5-5.1; Units: MEQ/L; Status: F Test: CHLORIDE LEVEL; Value: 97; Range: 98-107; Abnormal: Below low normal; Units: MEQ/L; Status: F Test: CARBON DIOXIDE LEVEL; Value: 29; Range: 21-32; Units: MEQ/L; Status: F Test: ANION GAP; Value: 11; Range: 8-16; Units: MEQ/L; Status: F Test: CALCIUM LEVEL; Value: 10.1; Range: 8.5-10.1; Units: MG/DL; Status: F Test Note: ; Units are mL/min/1.73 m2 Chronic Kidney Disease Staging per NKF: Stage I & II GFR >=60 Normal to Mildly Decreased Stage III GFR 30-59 Moderately Decreased Stage IV GFR 15-29 Severely Decreased Stage V GFR <15 Very Little GFR Left ESRD GFR <15 on BLACK TOP PAVER OPERATOR Lab Order: Magnesium Level; SPEC'M 04/12/16 14:11 Test: MAGNESIUM LEVEL; Value: 2.2; Range: 1.8-2.4; Units: MG/DL; Status: F Radiology Order: Abdomen, Flat\\E\\Upright,PA Chest Test: Abdomen, Flat\\E\\Upright,PA Chest REASON FOR EXAMINATION: Abdomen Pain; PA chest:; ; Cardiac silhouette is moderately enlarged without change. There is a right IJ; venous Port-A-Cath with tip in the expected location of the atriocaval junction.; Bibasilar atelectasis/scarring and/or infiltrates are noted, left greater than; right. A spinal stimulator is identified with superior tip projected over the; T9 and T10 vertebral bodies.; ; Impression : stable moderate cardiomegaly with bibasilar atelectasis/scarring; and/or infiltrate, not significantly changed; ; ; ; Flat and upright KUB: Numerous surgical clips are projected over the abdomen; and pelvis consistent with previous postsurgical changes well as ventral hernia; repair. The patient does have a left lower quadrant ileostomy. There is no; evidence of bowel obstruction or free intraperitoneal air.; ; There is small to moderate air is present within the stomach; ; Impression : stable moderate cardiomegaly with bibasilar atelectasis/scarring; and/or infiltrate, not significantly changed; ; ; Signed by; Kerry Ham MD 04/12/2016 02:53 P; Outcome: 15:05 Decision to Hospitalize by Provider. pc 21:41 Discharge Assessment: patient administered narcotics - yes. Patient was admitted to the [address] or transferred to another facility. The following High Risk Discharge criteria are identified: None. Admitted to Med/Surg accompanied by tech, via stretcher, with chart. Condition: stable. No special radiology studies were completed. Admission hand-off: Report Faxed Fax receipt verified by tamy, 4 pav. Property :Personal belongings accompany Pt. 21:44 Patient left the ED. [facility] Signatures: Dispatcher [employer] EDMS Juan Antunez MD MD pc Ganter, LoriLee, Jhony Powell lg, RN RN Usha Pryor RN RN lf1 Eduardo Chaparro, TEACHING SUPERVISOR TEACHING SUPERVISOR dd6 Jam Serrano RN RN jmb Farman, Justin,RN RN 3 MTDD
--- NOTE | 2016-04-12 21:44 | EDDOCDS ---
Physician Documentation [facility] Name: Rich Olson Age: 55 yrs Sex: Female : 1960 Arrival Date: 04/12/2016 Time: 13:01 Bed 15 Private MD: Tutu Sanchez Disposition: 04/12 14:54 Critical Care: Critical care not applicable. pc Disposition: 04/12/16 15:05 Hospitalization ordered by Leif Babb for Inpatient Admission. 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 - Bed requested for 4 [place]. - Status is Inpatient Admission. jf3 - Condition is Stable. - Problem is chronic. - Symptoms are unchanged. HPI: 14:54 This 55 yrs old Female presents to ER via Walkin/Carried/Asstd with pc complaints of Abdominal Pain. 14:54 The history is obtained from the patient, the patient's parent. She is complaining of pc no ostomy output, now for 10 days. He has been seen by his PCP and in this ED 4 times in the past week, for the same. Her labs, except for her chronic malabsorption-related hypomagnesemia, have been normal. A CT and 2 abdominal series have been unremarkable except for a chronic nonobstructing parastomal hernia. She has not had any fevers or chills, Resp or symptoms.. She has not been vomiting. She was directed here by here PCP today. Historical: - Allergies: Albuterol (shaky); Aspirin (stomach irritation); Ativan (hallucination); Azithromycin (Hives); BACLOFEN (shakiness); Chlorpromazine (shakiness); Ciprofloxacin (Hives); Codeine Phosphate (anxious); Colchicine (anxious); Darvocet-N 100 (nervous); Droperidol (Dystonic reaction); Fentanyl (nervous); Fluphenazine; GABAPENTIN (Rash); Gabitril (nervous); hydrocodone (confusion); IODINEIODINE CONTAINING ("body our of control"); Ipratropium [place]; Latex (Anaphylaxis); Lidoderm (Rash); Lyrica (nervous); Macrobid (shaky); Meperidine (Sleepy); mesoridazine; Midazolam (shaky and jumpy); Morphine (severe RAMIREZ); Oxycodone HCl (Hives); PENICILLINS (Hives); perphenazine (nervous); Phenergan (nervous); Prochlorperazine Maleate; Promethazine (Dystonic reaction); QUINOLONES (shaky, itchy); Readi-Cat 2; Red Dye; SULFA (SULFONAMIDES) (Hives); Tape (Rash); Theophylline (Seizures); TIAGABINE; Toradol (itchy); Tramadol HCl (nervous); Trifluoperazine; Vicodin (shaky, nervous); - Home Meds: 1. albuterol sulfate 90 mcg/actuation Inhl aepb 2 puffs every 4 hours month ago 2. Dilaudid 4 mg Oral tab 1 tab every 4 hours (Last dose: 04/12/2016 06:30) 3. Zofran IM 4 mg every 8 hours (Last dose: 04/12/2016 07:00) 4. tizanidine 2 mg oral tab 1 tabs BID PRN 5. ranitidine HCl 150 mg Oral tbef 150 mg twice a day 6. Reglan 10 mg Oral tab 1 tab 30 mins before meals 7. Symbicort 160-4.5 mcg/actuation inhalation HFAA 2 puffs 2 times per day 8. amitriptyline 50 mg Oral tab 1 tab once daily 1 tab in am , 3 tabs at bedtime 9. astelin 137mcg/spray twice a day 10. Benadryl 25 mg Oral cap 1 cap as needed 11. Carafate 1 gram Oral tab 1 tab 4 times per day 12. cetirizine 10 mg oral tab 1 tab once daily 13. gemfibrozil 600 mg Oral tab daily 14. Glucerna Oral liqd daily 15. heparin flush fro port 16. Levemir 30 units subcutaneous daily 17. Lomotil 2.5-0.025 mg oral tab as needed 18. magnesium oxide 400 mg Oral tab 400 mg three times a day 19. Nasacort AQ 55 mcg Nasal spra 1 spray once daily 20. Novolog 20 units Sub-Q daily - PMHx: acute bronchitis; Asthma; chronic abdominal pain; chronic pain syndrome; Diabetes - IDDM: controlled; DVT; Fatty Liver, Non-alchoholic; GERD; Hernia; Hypercholesterolemia; hypokalemia; hypomagnesia; Kidney stones; necrotic bowel; UTI; - PSHx: Cholecystectomy; Lumpectomy- Left; Lumpectomy- Right; bilateral knee surgery; Appendectomy; Hysterectomy; Ileostomy Construction; av fistula left leg; tumors removed from right arm; - The history from nurses notes was reviewed: and I agree with what is documented. - Social history: Smoking status: Patient states was never smoker of tobacco. No barriers to communication noted, The patient speaks fluent British, Speaks appropriately for age. - : The pt / caregiver states he / she is not on anticoagulants. Home medication list is obtained from the patient. - Exposure Risk Screening:: None identified. - Immunization history:: All immunizations up-to-date. - Family history: Not pertinent. - Social history:: the patient is a non-smoker, the patient does not drink alcohol. 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 pc Exam: 14:54 General Appearance: no acute distress, alert. pc 14:54 EENT: normal eye inspection, ears, nose and throat normal, pharynx normal, mucous membranes moist 14:54 Neck: The exam reveals no acute abnormalities. ROM is normal and painless. No nuchal rigidity is noted.. 14:54 Respiratory: no respiratory distress, normal breath sounds, chest non-tender. 14:54 CVS: regular pulse rate, regular rhythm, normal S1 and S2, no murmurs, strong peripheral pulses. 14:54 Abdomen: soft, non-tender, no organomegaly, normal bowel sounds, parastomal hernia which is nontender . 14:54 Back: normal inspection. 14:54 Skin: skin color is normal, warm, dry. 14:54 Extremities: The extremities have a grossly normal appearance, are non-tender, without acute ROM abnormalities. 14:54 Neuro: oriented x 3, cranial nerves normal as tested, no motor deficits, no sensory deficits, normal gait. 14:54 Psych: mood is depressed, affect is flat. Vital Signs: 13:03 BP 128 / 78; Pulse 91; Resp 18 S; Temp 97.1; Pulse Ox 98% on R/A; Weight 75.3 kg / dd6 166.01 lbs (R); Height 5 ft. 7 in. (170.18 cm) (R); 15:22 BP 143 / 64; Pulse 72; Resp 18; Temp 98.5(TE); Pulse Ox 96% on R/A; Pain 10/10; lf1 20:28 BP 122 / 68; Pulse 97; Resp 18; Temp 98.5(TE); Pulse Ox 93% on R/A; Pain 5/10; jf3 13:03 Body Mass Index 26.00 (75.30 kg, 170.18 cm) dd6 MDM: 13:53 CBC with Diff Ordered. EDMS 13:58 Financial registration complete. lg 14:04 [facility] Payment Agreement was scanned into [employer] and attached to record. lg 14:17 Dilaudid - HYDROmorphone 4 mg PO once ordered. pc 14:17 MED Profile Ordered. EDMS 14:17 Magnesium Level Ordered. EDMS 14:18 Abdomen, Flat\\E\\Upright,PA Chest Ordered. EDMS 14:29 CBC with Diff Reviewed. pc 14:44 MED Profile Reviewed. pc 14:44 Magnesium Level Reviewed. pc 14:54 Differential Diagnosis: chronic abdominal pain with known parastomal hernia; reported pc lack of ostomy output for 10 days without physical evidence of the same and suspect secondary gain. Plan: d/w Dr. Sanchez: labs, xray and observe to document strict I+Os. Data reviewed: old medical records, vital signs, nurses notes, lab test results, all radiology studies and available results. Test interpretation: LAB - all labs as ordered have been reviewed, interpreted and considered in the overall management of the clinical presentation; X-RAY - interpreted by Radiologist and personally reviewed, 3-view abdomen series; no acute disease. The patient has been re-examined and re-evaluated. The clinical presentation did not require any ED treatment or interventions. Physician consultation: Dr. Leif Babb regarding admission. Disposition: The historical points, examination findings, and any diagnostic results supporting the provided diagnosis, were discussed with the patient or legal guardian. The need for further work-up and/or treatment in the hospital was explained. 15:06 BED REQUEST+ADM ordered. EDMS 15:38 CONSISTENT CARBOHYDRATES ordered. EDMS 15:39 Admission / Observation Status ordered. EDMS 18:51 Dilaudid - HYDROmorphone 4 mg PO once ordered. lf1 19:31 COMPLETE BLOOD COUNT Ordered. EDMS 19:32 BASIC METABOLIC PROFILE Ordered. EDMS Administered Medications: 14:35 Drug: Dilaudid - HYDROmorphone 4 mg [hydromorphone 2 mg tablet (2 tabs)] Route: PO; jmb 15:22 Follow up: BP 143 / 64; Pulse 72 bpm; Resp 18 bpm; Temp 98.5 Temporal; Pulse Ox 96% RA; lf1 Pain 01/21 Adult 19:03 Drug: Dilaudid - HYDROmorphone 4 mg [hydromorphone 2 mg tablet (2 tabs)] Route: PO; jf3 Signatures: Dispatcher [employer] EDJuan Olivo MD MD pc Ganter, LoriLee, Reg Reg lg Jhony Whitaker RN RN dy Usha Garcia RN RN lf1 Nimco, Debbie, HOUSING MANAGEMENT OFFICER HOUSING MANAGEMENT OFFICER tmm1 Randy Kc RN RN jf3 Jam Serrano RN The chart was reviewed and I authenticate all verbal orders and agree with the evaluation and treatment provided.Attachments: 14:04 [facility] Payment Agreement lg MTDD
[2016-04-12 21:55] VITALS: BP 139/73
[2016-04-12] MEDS: tiZANidine 4 MG TAB PO SCH (23:03)
[2016-04-12] MEDS: AMITRIPTYLINE 50 MG TAB PO SCH (23:04)
[2016-04-12] MEDS: MAGNESIUM OXIDE 400 MG TAB (MAG-OX) PO SCH (23:04)
[2016-04-12] MEDS: METOCLOPRAMIDE 10 MG TAB PO SCH (23:04)
[2016-04-12] MEDS: SUCRALFATE 1 GM TAB PO SCH (23:04)
[2016-04-12] MEDS: SODIUM CHLORIDE 0.9% INJ 10 ML SYR IV SCH (23:05)
[2016-04-12] MEDS: HYDROmorphone (DILAUDID) 4 MG TAB PO PRN (23:06)
[2016-04-12] MEDS: AZELASTINE 137MCG NASAL SPY 30 ML (ASTELIN) SCH (23:57)
[2016-04-12] MEDS: raNITIdine SYRUP 150 MG/10 ML UDC PO SCH (23:58)
[2016-04-12] MEDS: SODIUM CHLORIDE NASAL 0.65% SPRAY BTL (OCEAN) SCH (23:58)
[2016-04-12] MEDS: ONDANSETRON 4MG/2ML VIAL (J2405) IV PRN (23:58)
[2016-04-13] MEDS: HYDROmorphone (DILAUDID) 4 MG TAB PO PRN ×5 (03:18→20:32)
[2016-04-13] MEDS: SODIUM CHLORIDE 0.9% INJ 10 ML SYR IV PRN ×2 (05:27→16:54)
[2016-04-13 05:51] LABS: MEAN CORPUSCULAR HEMOGLOBIN 30.8 pg (27.0-33.0); MEAN CORPUSCULAR HGB CONC 32.7 g/dl (32.0-36.5); MEAN CORPUSCULAR VOLUME 94.2 fl (80.0-96.0); WHITE BLOOD COUNT 6.7 K/mm3 (4.0-10.0)
[2016-04-13 05:57] LABS: ANION GAP 10 MEQ/L (8-16); BLOOD UREA NITROGEN 14 MG/DL (7-18); CALCIUM LEVEL 9.7 MG/DL (8.5-10.1); CARBON DIOXIDE LEVEL 28 MEQ/L (21-32); CHLORIDE LEVEL 103 MEQ/L (98-107); CREATININE FOR GFR 0.58 MG/DL (0.55-1.02); GLOMERULAR FILTRATION RATE > 60.0 (>51); GLUCOSE, FASTING 161 MG/DL (70-105); POTASSIUM SERUM 3.8 MEQ/L (3.5-5.1); SODIUM LEVEL 141 MEQ/L (136-145)
[2016-04-13 06:10] VITALS: BP 113/65
[2016-04-13] MEDS: LEVEMIR (INSULIN DETEMIR) 1 UNITS/0.01ML SC SCH (08:17)
[2016-04-13] MEDS: HumaLOG INSULIN (NovoLOG) PER UNIT SC SCH ×4 (08:17→21:00)
[2016-04-13] MEDS: SUCRALFATE 1 GM TAB PO SCH ×4 (08:18→20:31)
[2016-04-13] MEDS: ONDANSETRON 4MG/2ML VIAL (J2405) IV PRN ×2 (08:18→16:54)
[2016-04-13] MEDS: MAGNESIUM OXIDE 400 MG TAB (MAG-OX) PO SCH ×2 (08:18→20:33)
[2016-04-13] MEDS: GEMFIBROZIL 600 MG TAB PO SCH (08:18)
[2016-04-13] MEDS: CETIRIZINE (ZyrTEC) 10 MG TAB PO SCH (08:18)
[2016-04-13] MEDS: METOCLOPRAMIDE 10 MG TAB PO SCH ×3 (08:18→16:54)
[2016-04-13] MEDS: raNITIdine SYRUP 150 MG/10 ML UDC PO SCH ×2 (08:18→20:31)
[2016-04-13] MEDS: AMITRIPTYLINE 50 MG TAB PO SCH ×2 (08:18→20:31)
[2016-04-13] MEDS: tiZANidine 4 MG TAB PO SCH ×2 (08:18→20:32)
[2016-04-13] MEDS: ENOXAPARIN 40 MG/0.4 ML SYRINGE (J1650) SC SCH (08:19)
[2016-04-13] MEDS: AZELASTINE 137MCG NASAL SPY 30 ML (ASTELIN) SCH ×2 (08:19→20:33)
[2016-04-13] MEDS: SODIUM CHLORIDE NASAL 0.65% SPRAY BTL (OCEAN) SCH ×2 (08:19→20:33)
[2016-04-13] MEDS: SODIUM CHLORIDE 0.9% INJ 10 ML SYR IV SCH (08:19)
[2016-04-13] MEDS: SYMBICORT 160/4.5MCG INHALER 6GM INH SCH ×2 (08:47→19:27)
--- NOTE | 2016-04-13 09:59 | IPNPDOC ---
Assessment/Plan Date Seen The patient was seen on 04/13/16. Problems Problems: (1) Abdominal pain Status: Chronic Response to Treatment: Stable Problem Text: X-ray of the abdomen with no acute findings. CT abdomen imaging noted from 04/06, also with no acute findings. Patient's abdomen mildly distended, however soft on palpation. Ostomy site and left lower quadrant noted with no remarkable findings. We will continue to have the patient eat a by mouth diet and monitor input and output. Continue bowel care regimen. (2) Diabetes mellitus type 2 in obese Status: Chronic Response to Treatment: Stable Problem Text: We will continue the patient on Levemir 15 units daily, and insulin sliding scale (3) Asthma Status: Chronic Response to Treatment: Stable Problem Text: No acute shortness of breath or wheezing at this time Continue albuterol, Symbicort (4) GERD (gastroesophageal reflux disease) Status: Chronic Response to Treatment: Stable Problem Text: Continue current regimen (5) Hypomagnesemia Status: Chronic Response to Treatment: Stable Problem Text: Patient serum magnesium levels actually noted to be within normal limits. Plan / VTE VTE Prophylaxis Ordered?: Yes Plan Plan Text Attending attestation: I saw and evaluated the patient, and agree with plan of care as discussed and documented above. Bal Crocker MD Subjective Review of Systems CC/HPI The patient is a 55-year-old female admitted with a reason for visit of Abdominal Pain. Events since last encounter Pt c/o abd pain. Denies CP, SOB. Constitutional: Denies: Chills, Fever Pulmonary: Denies: Dyspnea Cardiovascular: Denies: Chest Pain Gastrointestinal: Reports: Abdominal Pain, Denies: Nausea, Vomiting Objective Physical Examination General Exam: Positive: Alert, No Acute Distress ENT Exam: Positive: Atraumatic, Mucous membr. moist/pink Chest Exam: Positive: Clear to auscultation, Normal air movement Heart Exam: Positive: Rate Normal, Regular Rhythm Telemetry: Positive: Sinus Abdomen Exam: Positive: BS Hypoactive, Other (mild tenderness to deep palpation in the left lower quadrant. No rebound tenderness, guarding, or rigidity noted. Left lower quadrant ostomy noted with no surrounding erythema, tenderness, or purulent discharge.), Soft Extremity Exam: Negative: Tenderness Vital Signs/I&O Vital Signs Date Time Temp Pulse Resp B/P Pulse Ox O2 Delivery O2 Flow Rate FiO2 04/13/16 07:29 18 Room Air 04/13/16 06:10 96.3 79 113/65 93 I&O- Last 24 Hours up to 6 AM 04/13/16 06:00 Intake Total 0 ml Output Total 150 ml Balance -150 ml Laboratory Data Labs 24H Laboratory Tests 2 04/12/16 14:11: Anion Gap 11, White Blood Count 5.1, Red Blood Count 3.81L, Hemoglobin 11.6L, Hematocrit 36.1, Mean Corpuscular Volume 94.7, Mean Corpuscular Hemoglobin 30.3 , Mean Corpuscular Hemoglobin Concent 32.0, Red Cell Distribution Width 14.1, Platelet Count 305, Neutrophils (%) (Auto) 62.8, Lymphocytes (%) (Auto) 26.9, Monocytes (%) (Auto) 5.2H, Eosinophils (%) (Auto) 1.5, Basophils (%) (Auto) 1.5H , Neutrophils # (Auto) 3.2, Lymphocytes # (Auto) 1.5, Monocytes # (Auto) 0.3, Eosinophils # (Auto) 0.1, Basophils # (Auto) 0.1, Blood Urea Nitrogen 11, Creatinine 0.80, Sodium Level 137, Potassium Level 4.1, Chloride Level 97L, Carbon Dioxide Level 29, Calcium Level 10.1, Glomerular Filtration Rate > 60.0, Large Unclassified Cells # 0.1, Large Unclassified Cells % 2.0, Magnesium Level 2.2 04/12/16 22:56: Bedside Glucose (Misc Panel) 112H 04/13/16 05:33: Anion Gap 10, Blood Urea Nitrogen 14, Creatinine 0.58, Sodium Level 141, Potassium Level 3.8, Chloride Level 103, Carbon Dioxide Level 28, Calcium Level 9.7, Glomerular Filtration Rate > 60.0 CBC/BMP Laboratory Tests 04/12/16 14:11 Calcium Level 10.1, Red Blood Count 3.81 L, Mean Corpuscular Volume 94.7, Mean Corpuscular Hemoglobin 30.3, Mean Corpuscular Hemoglobin Concent 32.0, Red Cell Distribution Width 14.1, Neutrophils (%) (Auto) 62.8, Lymphocytes (%) (Auto) 26.9, Monocytes (%) (Auto) 5.2 H, Eosinophils (%) (Auto) 1.5, Basophils (%) ( Auto) 1.5 H, Neutrophils # (Auto) 3.2, Lymphocytes # (Auto) 1.5, Monocytes # ( Auto) 0.3, Eosinophils # (Auto) 0.1, Basophils # (Auto) 0.1 04/13/16 05:33 Calcium Level 9.7, Red Blood Count 3.76 L, Mean Corpuscular Volume 94.2, Mean Corpuscular Hemoglobin 30.8, Mean Corpuscular Hemoglobin Concent 32.7, Red Cell Distribution Width 14.0 FSBS Laboratory Tests Test 04/12/16 22:56 Range/Units Bedside Glucose (Misc Panel) 112 70-105 MG/DL Tobi Kumar Apr 13, 2016 09:59 BAL CROCKER MD Apr 16, 2016 16:21
[2016-04-13 14:00] VITALS: BP 107/66
[2016-04-13 20:35] VITALS: BP 105/58
[2016-04-14] MEDS: HYDROmorphone (DILAUDID) 4 MG TAB PO PRN ×5 (00:53→20:09)
[2016-04-14 05:10] VITALS: BP 109/62
[2016-04-14] MEDS: SODIUM CHLORIDE 0.9% INJ 10 ML SYR IV SCH (05:42)
[2016-04-14 06:20] LABS: ANION GAP 8 MEQ/L (8-16); BLOOD UREA NITROGEN 11 MG/DL (7-18); CALCIUM LEVEL 9.1 MG/DL (8.5-10.1); CARBON DIOXIDE LEVEL 29 MEQ/L (21-32); CHLORIDE LEVEL 101 MEQ/L (98-107); CREATININE FOR GFR 0.54 MG/DL (0.55-1.02); GLOMERULAR FILTRATION RATE > 60.0 (>51); GLUCOSE, FASTING 170 MG/DL (70-105); POTASSIUM SERUM 3.7 MEQ/L (3.5-5.1); SODIUM LEVEL 138 MEQ/L (136-145)
[2016-04-14 06:23] LABS: MEAN CORPUSCULAR HEMOGLOBIN 31.2 pg (27.0-33.0); MEAN CORPUSCULAR HGB CONC 33.2 g/dl (32.0-36.5); MEAN CORPUSCULAR VOLUME 94.2 fl (80.0-96.0); RED CELL DISTRIBUTION WIDTH 13.4 % (11.5-14.5); WHITE BLOOD COUNT 4.5 K/mm3 (4.0-10.0)
--- NOTE | 2016-04-14 08:02 | IPNPDOC ---
Assessment/Plan Date Seen The patient was seen on 04/14/16. Problems Problems: (1) Abdominal pain Status: Chronic Response to Treatment: Stable Problem Text: X-ray of the abdomen with no acute findings. CT abdomen imaging noted from 04/06, also with no acute findings. Patient's abdomen mildly distended, however soft on palpation. Ostomy site and left lower quadrant noted with no remarkable findings. We will continue to have the patient eat a by mouth diet and monitor input and output. Continue bowel care regimen. Possible seroma? Will order abd U/S. (2) Diabetes mellitus type 2 in obese Status: Chronic Response to Treatment: Stable Problem Text: We will continue the patient on Levemir 15 units daily, and insulin sliding scale (3) Asthma Status: Chronic Response to Treatment: Stable Problem Text: No acute shortness of breath or wheezing at this time Continue albuterol, Symbicort (4) GERD (gastroesophageal reflux disease) Status: Chronic Response to Treatment: Stable Problem Text: Continue current regimen (5) Hypomagnesemia Status: Chronic Response to Treatment: Stable Problem Text: Patient serum magnesium levels actually noted to be within normal limits. Plan / VTE VTE Prophylaxis Ordered?: Yes Subjective Review of Systems CC/HPI The patient is a 55-year-old female admitted with a reason for visit of Abdominal Pain. Events since last encounter Pt still with abd pain. Denies CP, SOB. Constitutional: Denies: Chills, Fever Pulmonary: Denies: Dyspnea Cardiovascular: Denies: Chest Pain Gastrointestinal: Reports: Abdominal Pain Objective Physical Examination General Exam: Positive: Alert, No Acute Distress ENT Exam: Positive: Atraumatic, Mucous membr. moist/pink Chest Exam: Positive: Clear to auscultation, Normal air movement Heart Exam: Positive: Rate Normal, Regular Rhythm Telemetry: Positive: Sinus Abdomen Exam: Positive: BS Hypoactive, Other (mild tenderness to deep palpation in the left lower quadrant. No rebound tenderness, guarding, or rigidity noted. Left lower quadrant ostomy noted with no surrounding erythema, tenderness, or purulent discharge.), Soft Extremity Exam: Negative: Tenderness Vital Signs/I&O Vital Signs Date Time Temp Pulse Resp B/P Pulse Ox O2 Delivery O2 Flow Rate FiO2 04/14/16 06:11 18 95 Room Air 04/14/16 05:10 97.2 83 109/62 I&O- Last 24 Hours up to 6 AM 1/1/17 06:00 Intake Total 1560 ml Output Total 1275 ml Balance 285 ml Laboratory Data Labs 24H Laboratory Tests 2 04/14/16 05:49: Anion Gap 8, Blood Urea Nitrogen 11, Creatinine 0.54L, Sodium Level 138, Potassium Level 3.7, Chloride Level 101, Carbon Dioxide Level 29, Calcium Level 9.1, Glomerular Filtration Rate > 60.0 CBC/BMP Laboratory Tests 04/14/16 05:49 Calcium Level 9.1, Red Blood Count 3.54 L, Mean Corpuscular Volume 94.2, Mean Corpuscular Hemoglobin 31.2, Mean Corpuscular Hemoglobin Concent 33.2, Red Cell Distribution Width 13.4 Tobi Kumar RPA-C Apr 14, 2016 08:02
[2016-04-14] MEDS: ONDANSETRON 4MG/2ML VIAL (J2405) IV PRN ×2 (08:12→17:29)
[2016-04-14] MEDS: SYMBICORT 160/4.5MCG INHALER 6GM INH SCH ×2 (08:17→20:07)
[2016-04-14] MEDS: SODIUM CHLORIDE 0.9% INJ 10 ML SYR IV PRN ×2 (08:18→14:11)
[2016-04-14] MEDS: ENOXAPARIN 40 MG/0.4 ML SYRINGE (J1650) SC SCH (08:19)
[2016-04-14] MEDS: HumaLOG INSULIN (NovoLOG) PER UNIT SC SCH ×4 (08:19→21:00)
[2016-04-14] MEDS: raNITIdine SYRUP 150 MG/10 ML UDC PO SCH ×2 (08:19→20:06)
[2016-04-14] MEDS: GEMFIBROZIL 600 MG TAB PO SCH (08:20)
[2016-04-14] MEDS: CETIRIZINE (ZyrTEC) 10 MG TAB PO SCH (08:20)
[2016-04-14] MEDS: AMITRIPTYLINE 50 MG TAB PO SCH ×2 (08:20→20:07)
[2016-04-14] MEDS: METOCLOPRAMIDE 10 MG TAB PO SCH ×3 (08:20→17:29)
[2016-04-14] MEDS: LEVEMIR (INSULIN DETEMIR) 1 UNITS/0.01ML SC SCH (08:20)
[2016-04-14] MEDS: MAGNESIUM OXIDE 400 MG TAB (MAG-OX) PO SCH ×2 (08:21→20:07)
[2016-04-14] MEDS: tiZANidine 4 MG TAB PO SCH ×2 (08:21→20:08)
[2016-04-14] MEDS: SUCRALFATE 1 GM TAB PO SCH ×4 (08:21→20:07)
[2016-04-14] MEDS: AZELASTINE 137MCG NASAL SPY 30 ML (ASTELIN) SCH ×2 (08:22→23:17)
[2016-04-14] MEDS: SODIUM CHLORIDE NASAL 0.65% SPRAY BTL (OCEAN) SCH ×2 (08:22→23:18)
--- NOTE | 2016-04-14 10:05 | REP ---
Clinical: Acute abdominal pain. Possible abdominal seroma. Technique: Camejo scale ultrasound using curved array transducer. Findings: The liver and pancreas are normal in contour, size, and echogenicity without focal hepatic or pancreatic lesions identified. The patient is status post cholecystectomy. No biliary ductal dilatation is appreciated, and the common bile duct measures 2.9 mm diameter. The right kidney is normal in reniform shape without hydronephrosis and measures 10.8 x 4.7 x 3.8 cm. No ascites. Visualized portions of the abdominal aorta normal. Further evaluation of the abdomen demonstrates no obvious discrete fluid collection/seroma. Impression: Normal right upper quadrant and gallbladder abdominal ultrasound. Signed by Darius Roth MD 04/14/2016 09:56 A
[2016-04-14 14:00] VITALS: BP 126/77
[2016-04-14] MEDS ORDERED: NAPROXEN 250 MG TAB PO ONE (14:00)
[2016-04-14] MEDS ORDERED: HYDROmorphone HCL 1 MG/ML SYRINGE (J1170) IV ONE (14:00)
[2016-04-14] MEDS ORDERED: MIRALAX *UNIT DOSE* 17GM PACKET PO PRN (17:00)
[2016-04-14 22:00] VITALS: BP 109/64
--- NOTE | 2016-04-14 22:45 | EDDOCDS ---
Physician Documentation [facility] Name: Rich Olson Age: 55 yrs Sex: Female : 1960 Arrival Date: 04/12/2016 Time: 13:01 Bed 15 Private MD: Tutu Sanchez Disposition: 04/12 14:54 Critical Care: Critical care not applicable. pc Disposition: 04/12/16 15:05 Hospitalization ordered by Leif Babb for Inpatient Admission. 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 - Bed requested for 4 [place]. - Status is Inpatient Admission. jf3 - Condition is Stable. - Problem is chronic. - Symptoms are unchanged. HPI: 14:54 This 55 yrs old Female presents to ER via Walkin/Carried/Asstd with pc complaints of Abdominal Pain. 14:54 The history is obtained from the patient, the patient's parent. She is complaining of pc no ostomy output, now for 10 days. He has been seen by his PCP and in this ED 4 times in the past week, for the same. Her labs, except for her chronic malabsorption-related hypomagnesemia, have been normal. A CT and 2 abdominal series have been unremarkable except for a chronic nonobstructing parastomal hernia. She has not had any fevers or chills, Resp or symptoms.. She has not been vomiting. She was directed here by here PCP today. Historical: - Allergies: Albuterol (shaky); Aspirin (stomach irritation); Ativan (hallucination); Azithromycin (Hives); BACLOFEN (shakiness); Chlorpromazine (shakiness); Ciprofloxacin (Hives); Codeine Phosphate (anxious); Colchicine (anxious); Darvocet-N 100 (nervous); Droperidol (Dystonic reaction); Fentanyl (nervous); Fluphenazine; GABAPENTIN (Rash); Gabitril (nervous); hydrocodone (confusion); IODINEIODINE CONTAINING ("body our of control"); Ipratropium [place]; Latex (Anaphylaxis); Lidoderm (Rash); Lyrica (nervous); Macrobid (shaky); Meperidine (Sleepy); mesoridazine; Midazolam (shaky and jumpy); Morphine (severe RAMIREZ); Oxycodone HCl (Hives); PENICILLINS (Hives); perphenazine (nervous); Phenergan (nervous); Prochlorperazine Maleate; Promethazine (Dystonic reaction); QUINOLONES (shaky, itchy); Readi-Cat 2; Red Dye; SULFA (SULFONAMIDES) (Hives); Tape (Rash); Theophylline (Seizures); TIAGABINE; Toradol (itchy); Tramadol HCl (nervous); Trifluoperazine; Vicodin (shaky, nervous); - Home Meds: 1. albuterol sulfate 90 mcg/actuation Inhl aepb 2 puffs every 4 hours month ago 2. Dilaudid 4 mg Oral tab 1 tab every 4 hours (Last dose: 04/12/2016 06:30) 3. Zofran IM 4 mg every 8 hours (Last dose: 04/12/2016 07:00) 4. tizanidine 2 mg oral tab 1 tabs BID PRN 5. ranitidine HCl 150 mg Oral tbef 150 mg twice a day 6. Reglan 10 mg Oral tab 1 tab 30 mins before meals 7. Symbicort 160-4.5 mcg/actuation inhalation HFAA 2 puffs 2 times per day 8. amitriptyline 50 mg Oral tab 1 tab once daily 1 tab in am , 3 tabs at bedtime 9. astelin 137mcg/spray twice a day 10. Benadryl 25 mg Oral cap 1 cap as needed 11. Carafate 1 gram Oral tab 1 tab 4 times per day 12. cetirizine 10 mg oral tab 1 tab once daily 13. gemfibrozil 600 mg Oral tab daily 14. Glucerna Oral liqd daily 15. heparin flush fro port 16. Levemir 30 units subcutaneous daily 17. Lomotil 2.5-0.025 mg oral tab as needed 18. magnesium oxide 400 mg Oral tab 400 mg three times a day 19. Nasacort AQ 55 mcg Nasal spra 1 spray once daily 20. Novolog 20 units Sub-Q daily - PMHx: acute bronchitis; Asthma; chronic abdominal pain; chronic pain syndrome; Diabetes - IDDM: controlled; DVT; Fatty Liver, Non-alchoholic; GERD; Hernia; Hypercholesterolemia; hypokalemia; hypomagnesia; Kidney stones; necrotic bowel; UTI; - PSHx: Cholecystectomy; Lumpectomy- Left; Lumpectomy- Right; bilateral knee surgery; Appendectomy; Hysterectomy; Ileostomy Construction; av fistula left leg; tumors removed from right arm; - The history from nurses notes was reviewed: and I agree with what is documented. - Social history: Smoking status: Patient states was never smoker of tobacco. No barriers to communication noted, The patient speaks fluent Andorran, Speaks appropriately for age. - : The pt / caregiver states he / she is not on anticoagulants. Home medication list is obtained from the patient. - Exposure Risk Screening:: None identified. - Immunization history:: All immunizations up-to-date. - Family history: Not pertinent. - Social history:: the patient is a non-smoker, the patient does not drink alcohol. 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 pc Exam: 14:54 General Appearance: no acute distress, alert. pc 14:54 EENT: normal eye inspection, ears, nose and throat normal, pharynx normal, mucous membranes moist 14:54 Neck: The exam reveals no acute abnormalities. ROM is normal and painless. No nuchal rigidity is noted.. 14:54 Respiratory: no respiratory distress, normal breath sounds, chest non-tender. 14:54 CVS: regular pulse rate, regular rhythm, normal S1 and S2, no murmurs, strong peripheral pulses. 14:54 Abdomen: soft, non-tender, no organomegaly, normal bowel sounds, parastomal hernia which is nontender . 14:54 Back: normal inspection. 14:54 Skin: skin color is normal, warm, dry. 14:54 Extremities: The extremities have a grossly normal appearance, are non-tender, without acute ROM abnormalities. 14:54 Neuro: oriented x 3, cranial nerves normal as tested, no motor deficits, no sensory deficits, normal gait. 14:54 Psych: mood is depressed, affect is flat. Vital Signs: 13:03 BP 128 / 78; Pulse 91; Resp 18 S; Temp 97.1; Pulse Ox 98% on R/A; Weight 75.3 kg / dd6 166.01 lbs (R); Height 5 ft. 7 in. (170.18 cm) (R); 15:22 BP 143 / 64; Pulse 72; Resp 18; Temp 98.5(TE); Pulse Ox 96% on R/A; Pain 10/10; lf1 20:28 BP 122 / 68; Pulse 97; Resp 18; Temp 98.5(TE); Pulse Ox 93% on R/A; Pain 5/10; jf3 13:03 Body Mass Index 26.00 (75.30 kg, 170.18 cm) dd6 MDM: 13:53 CBC with Diff Ordered. EDMS 13:58 Financial registration complete. lg 14:04 ON LICENSE OF [facility] Payment Agreement was scanned into [employer] and attached to record. lg 14:17 Dilaudid - HYDROmorphone 4 mg PO once ordered. pc 14:17 MED Profile Ordered. EDMS 14:17 Magnesium Level Ordered. EDMS 14:18 Abdomen, Flat\\E\\Upright,PA Chest Ordered. EDMS 14:29 CBC with Diff Reviewed. pc 14:44 MED Profile Reviewed. pc 14:44 Magnesium Level Reviewed. pc 14:54 Differential Diagnosis: chronic abdominal pain with known parastomal hernia; reported pc lack of ostomy output for 10 days without physical evidence of the same and suspect secondary gain. Plan: d/w Dr. Sanchez: labs, xray and observe to document strict I+Os. Data reviewed: old medical records, vital signs, nurses notes, lab test results, all radiology studies and available results. Test interpretation: LAB - all labs as ordered have been reviewed, interpreted and considered in the overall management of the clinical presentation; X-RAY - interpreted by Radiologist and personally reviewed, 3-view abdomen series; no acute disease. The patient has been re-examined and re-evaluated. The clinical presentation did not require any ED treatment or interventions. Physician consultation: Dr. Leif Babb regarding admission. Disposition: The historical points, examination findings, and any diagnostic results supporting the provided diagnosis, were discussed with the patient or legal guardian. The need for further work-up and/or treatment in the hospital was explained. 15:06 BED REQUEST+ADM ordered. EDMS 15:38 CONSISTENT CARBOHYDRATES ordered. EDMS 15:39 Admission / Observation Status ordered. EDMS 18:51 Dilaudid - HYDROmorphone 4 mg PO once ordered. lf1 19:31 COMPLETE BLOOD COUNT Ordered. EDMS 19:32 BASIC METABOLIC PROFILE Ordered. EDMS Administered Medications: 14:35 Drug: Dilaudid - HYDROmorphone 4 mg [hydromorphone 2 mg tablet (2 tabs)] Route: PO; jmb 15:22 Follow up: BP 143 / 64; Pulse 72 bpm; Resp 18 bpm; Temp 98.5 Temporal; Pulse Ox 96% RA; lf1 Pain 01/21 Adult 19:03 Drug: Dilaudid - HYDROmorphone 4 mg [hydromorphone 2 mg tablet (2 tabs)] Route: PO; jf3 Signatures: Dispatcher [employer] EDJuan Olivo MD MD pc Ganter, LoriLee, Reg Reg lg Jhony Whitaker RN RN dy Usha Garcia RN RN lf1 Nimco, Debbie, SHUTTLE THREADER SHUTTLE THREADER tmm1 Randy Kc RN RN jf3 Jam Serrano RN The chart was reviewed and I authenticate all verbal orders and agree with the evaluation and treatment provided.Attachments: 14:04 ON LICENSE OF [facility] Payment Agreement lg Chart Complete MTDD
--- NOTE | 2016-04-14 22:45 | EDDOCDS ---
Nurse's Notes 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 nothing out of dy ostomy for 1 week. Risk factors: the patient reports no vaginal bleeding. Adult Sepsis Screening: The patient does not have new or worsening altered mentation. Patient's respiratory rate is less than 22. Systolic blood pressure is greater than 100. Patient has a qSOFA score of 0- Negative Sepsis Screen. Suicide/Homicide risk assessment- the patient denies having any suicidal and/or homicidal ideations and does not present with any other emotional, behavioral or mental health complaints. Status: Patient is not a client service representative or dependent. Transition of care: patient was not received from another setting of care. 13:04 Acuity: THADDEUS Level 3 dy 13:04 Method Of Arrival: Walkin/Carried/Asstd dy Triage Assessment: 13:11 General: Appears in no apparent distress. Pain: Location: suprapubic area. HIV dy screening NA for this visit Offered previously. GI: Reports lower abdominal pain. 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 N/A - Hysterectomy dy Historical: - Allergies: Albuterol (shaky); Aspirin (stomach irritation); Ativan (hallucination); Azithromycin (Hives); BACLOFEN (shakiness); Chlorpromazine (shakiness); Ciprofloxacin (Hives); Codeine Phosphate (anxious); Colchicine (anxious); Darvocet-N 100 (nervous); Droperidol (Dystonic reaction); Fentanyl (nervous); Fluphenazine; GABAPENTIN (Rash); Gabitril (nervous); hydrocodone (confusion); IODINEIODINE CONTAINING ("body our of control"); Ipratropium [place]; Latex (Anaphylaxis); Lidoderm (Rash); Lyrica (nervous); Macrobid (shaky); Meperidine (Sleepy); mesoridazine; Midazolam (shaky and jumpy); Morphine (severe RAMIREZ); Oxycodone HCl (Hives); PENICILLINS (Hives); perphenazine (nervous); Phenergan (nervous); Prochlorperazine Maleate; Promethazine (Dystonic reaction); QUINOLONES (shaky, itchy); Readi-Cat 2; Red Dye; SULFA (SULFONAMIDES) (Hives); Tape (Rash); Theophylline (Seizures); TIAGABINE; Toradol (itchy); Tramadol HCl (nervous); Trifluoperazine; Vicodin (shaky, nervous); - Home Meds: 1. albuterol sulfate 90 mcg/actuation Inhl aepb 2 puffs every 4 hours month ago 2. Dilaudid 4 mg Oral tab 1 tab every 4 hours (Last dose: 04/12/2016 06:30) 3. Zofran IM 4 mg every 8 hours (Last dose: 04/12/2016 07:00) 4. tizanidine 2 mg oral tab 1 tabs BID PRN 5. ranitidine HCl 150 mg Oral tbef 150 mg twice a day 6. Reglan 10 mg Oral tab 1 tab 30 mins before meals 7. Symbicort 160-4.5 mcg/actuation inhalation HFAA 2 puffs 2 times per day 8. amitriptyline 50 mg Oral tab 1 tab once daily 1 tab in am , 3 tabs at bedtime 9. astelin 137mcg/spray twice a day 10. Benadryl 25 mg Oral cap 1 cap as needed 11. Carafate 1 gram Oral tab 1 tab 4 times per day 12. cetirizine 10 mg oral tab 1 tab once daily 13. gemfibrozil 600 mg Oral tab daily 14. Glucerna Oral liqd daily 15. heparin flush fro port 16. Levemir 30 units subcutaneous daily 17. Lomotil 2.5-0.025 mg oral tab as needed 18. magnesium oxide 400 mg Oral tab 400 mg three times a day 19. Nasacort AQ 55 mcg Nasal spra 1 spray once daily 20. Novolog 20 units Sub-Q daily - PMHx: acute bronchitis; Asthma; chronic abdominal pain; chronic pain syndrome; Diabetes - IDDM: controlled; DVT; Fatty Liver, Non-alchoholic; GERD; Hernia; Hypercholesterolemia; hypokalemia; hypomagnesia; Kidney stones; necrotic bowel; UTI; - PSHx: Cholecystectomy; Lumpectomy- Left; Lumpectomy- Right; bilateral knee surgery; Appendectomy; Hysterectomy; Ileostomy Construction; av fistula left leg; tumors removed from right arm; - The history from nurses notes was reviewed: and I agree with what is documented. - Social history: Smoking status: Patient states was never smoker of tobacco. No barriers to communication noted, The patient speaks fluent Greenlandic, Speaks appropriately for age. - : The pt / caregiver states he / she is not on anticoagulants. Home medication list is obtained from the patient. - Exposure Risk Screening:: None identified. - Immunization history:: All immunizations up-to-date. - Family history: Not pertinent. - Social history:: the patient is a non-smoker, the patient does not drink alcohol. Screenin:17 Screening information is obtained from the patient. Fall risk: At risk due to gait jmb disturbance, Patient uses cane. Assistance ADL's: requires no assistance with activities of daily living. Abuse/DV Screen: The patient / caregiver reports he/she is: not in a situation that causes fear, pain or injury. Nutritional screening: No deficits noted. home support is adequate. 16:50 Advance Directives: Currently, there is a health care proxy, Sabina Olson - Mother. lf1 Assessment: 13:17 General: Appears in no apparent distress, Behavior is appropriate for age, cooperative, jmb Patient up to bathroom, voices she needed to urinate. . Pain: Location: abdomen Pain currently is 9 out of 10 on a pain scale. Neurological: Level of Consciousness is awake, alert, obeys commands, Oriented to person, place, time, Induction Heat Treater are equal bilaterally Gait is steady, Speech is normal, Facial symmetry appears normal, Facial symmetry: tongue is midline. Cardiovascular: Capillary refill < 3 seconds Heart tones present Pulses are all present. Rhythm is regular. Respiratory: Airway is patent Respiratory effort is even, unlabored, Respiratory pattern is regular, symmetrical, Breath sounds are clear bilaterally. GI: Abdomen is distended, Colostomy site Colostomy has liquid stool present in bag. Bowel sounds present X 4 quads. hypoactive in right upper quadrant, left upper quadrant and right lower quadrant Abd is soft X 4 quads. Derm: Skin is normal. Musculoskeletal: Range of motion intact in all extremities. 14:13 General: Appears in no apparent distress, comfortable, Behavior is appropriate for age, jmb cooperative, Patient laying on stretcher with family at bedside. Patient watching television, appears in no distress or discomfort. Patient voices no complaints at this time. . General: Patient and family at bedside discussing method of pain medication administration. NO discussion about pain medication at this time or provider discussion. Family discussed that due to not accessing port, best method would be to do injection. . Neurological: Level of Consciousness is awake, alert, obeys commands, Oriented to person, place, time. Respiratory: Airway is patent Respiratory effort is even, unlabored, Respiratory pattern is regular, symmetrical. 14:20 General: Family pulled this technical publications writer into room, asked this technical publications writer who was suppression crew leader for Dr. nancy Sanchez's office. Informed family and patient that this technical publications writer was not sure. Family stated that she walked to Dr. Antunez and asked him if they were going to give her anything for pain in which family stated "He said he is going to give her her home medication." Family reported "Her home medication doesn't help her, if it did then why would I bring her in here?" This technical publications writer stated that he is unsure of plan until provider discusses with this technical publications writer. Family then asked if Paxton Vazquez could see her instead, informed family that they were told that a physician must see patient instead of another provider and that Paxton Vazquez is an [employer] in which family stated oh, ok, so he wouldn't be able to see patient then due to request of Dr. Sanchez. NO further complaints at this time. . 15:09 General: Appears in no apparent distress, comfortable, Behavior is appropriate for age, jmb cooperative, Previous concern report to Nurse Sorter Packer Selena Becker RN. Patient laying on stretcher, appears comfortable. NO voiced complaints at this time. . Neurological: Level of Consciousness is awake, alert, obeys commands, Oriented to person, place, time. Respiratory: Airway is patent Respiratory effort is even, unlabored, Respiratory pattern is regular, symmetrical. 15:20 General: Hospitalist at bedside. lf1 15:29 Adult Sepsis Screening: The patient does not have new or worsening altered mentation. lf1 Patient's respiratory rate is less than 22. Systolic blood pressure is greater than 100. Patient has a qSOFA score of 0- Negative Sepsis Screen. General: Appears in no apparent distress, comfortable, Behavior is cooperative. Pain: Location: right lower quadrant Pain currently is 10 out of 10 on a pain scale. Quality of pain is described as "smarts" Alleviated by nothing. Neurological: Level of Consciousness is awake, alert. EENT: No deficits noted. Respiratory: Respiratory effort is even, unlabored. GI: Abdomen is distended, obese, Colostomy site Pt reports minimal output in colostomy bag over last week. States only about 1 inch ribbon of stool present in bag over last week. When bag was observed to contain about 300 of liquid stool pt. stated that had accumulated since about noon today but that she normally has a more formed stool so the liquid didn't count. 16:42 General: Appears in no apparent distress, comfortable, Behavior is cooperative. Pain: lf1 Location: right lower quadrant Pain currently is 10 out of 10 on a pain scale. Neurological: Level of Consciousness is awake, alert. Respiratory: Respiratory effort is even, unlabored. Derm: Skin is normal. 18:51 General: Appears in no apparent distress, comfortable, Behavior is cooperative. Pain: lf1 Location: right lower quadrant Pain currently is 10 out of 10 on a pain scale. Neurological: Level of Consciousness is awake, alert. Respiratory: Respiratory effort is even, unlabored. 19:05 General: Appears in no apparent distress, comfortable, Behavior is cooperative. Pain: jf3 Location: left upper quadrant and left lower quadrant Pain currently is 9 out of 10 on a pain scale. Neurological: Level of Consciousness is awake, alert, Oriented to person, place, time. Cardiovascular: Capillary refill < 3 seconds Heart tones S1 S2 present Chest pain is denied. Respiratory: Airway is patent Respiratory effort is even, unlabored, Respiratory pattern is regular, symmetrical, Breath sounds are clear bilaterally. GI: Abdomen is obese, Colostomy site is clean and dry. Ostomy appliance is intact. Bowel sounds present X 4 quads. Abd is soft X 4 quads Abd is tender to palpation in left upper quadrant and left lower quadrant. Derm: Skin is pale. 20:23 General: Appears in no apparent distress, comfortable, Behavior is cooperative. jf3 Neurological: Level of Consciousness is awake, Oriented to person, place, time. Neurological: Cardiovascular: Capillary refill < 3 seconds. Respiratory: Airway is patent Respiratory effort is even, unlabored, Respiratory pattern is regular, symmetrical. Derm: Skin is pale. 21:40 General: Appears in no apparent distress, comfortable. Pain: Pain currently is 5 out of jf3 10 on a pain scale. Neurological: Level of Consciousness is awake, alert, Oriented to person, place, time. Cardiovascular: Capillary refill < 3 seconds. Respiratory: Airway is patent Respiratory effort is even, unlabored, Respiratory pattern is regular, symmetrical. Derm: Skin is pale. Vital Signs: 13:03 BP 128 / 78; Pulse 91; Resp 18 S; Temp 97.1; Pulse Ox 98% on R/A; Weight 75.3 kg (R); dd6 Height 5 ft. 7 in. (170.18 cm) (R); 15:22 BP 143 / 64; Pulse 72; Resp 18; Temp 98.5(TE); Pulse Ox 96% on R/A; Pain 10/10; lf1 20:28 BP 122 / 68; Pulse 97; Resp 18; Temp 98.5(TE); Pulse Ox 93% on R/A; Pain 5/10; jf3 13:03 Body Mass Index 26.00 (75.30 kg, 170.18 cm) dd6 Vitals: 13:03 Log In Time: April 12, 2016 at 13:01. dd6 ED Course: 13:03 Patient visited by Eduardo Chaparro PCA. dd6 13:03 Tutu Sanchez MD is Private Physician. dd6 13:03 Patient moved to Waiting dd6 13:04 Patient moved to Pre RCE dd6 13:06 Triage Initiated dy 13:12 Patient moved to 15 dy 13:17 The patient / caregiver is instructed regarding the plan of care and ED course. jmb 13:20 Patient visited by Jam Serrano RN. jmb 13:25 Juan Antunez MD is Attending Physician. pc 13:51 Patient visited by Juan Antunez MD. pc 14:04 [facility] Payment Agreement was scanned into [employer] and attached to record. lg 14:15 Patient visited by Jam Serrano RN. jmb 14:15 CBC with Diff Sent. jmb 14:20 Magnesium Level Sent. jmb 14:20 MED Profile Sent. jmb 15:05 Leif Babb is Hospitalizing Provider. pc 15:10 Patient visited by Jam Serrano RN. b 15:20 Report received from Jam Serrano RN. lf1 15:21 Patient visited by Usha Garcia RN. lf1 15:27 Abdomen, Flat\\E\\Upright,PA Chest Returned. EDMS 15:33 Patient visited by Usha Garcia RN. lf1 16:43 No IV's were initiated during this patient's visit. No procedures done that require lf1 assistance. 16:44 Patient visited by Usha Garcia RN. lf1 16:51 Patient visited by Usha Garcia RN. lf1 18:59 Report given to Randy Kc RN. lf1 19:32 Patient visited by Randy Kc RN. jf3 Administered Medications: 14:35 Drug: Dilaudid - HYDROmorphone 4 mg [hydromorphone 2 mg tablet (2 tabs)] Route: PO; jmb 15:22 Follow up: BP 143 / 64; Pulse 72 bpm; Resp 18 bpm; Temp 98.5 Temporal; Pulse Ox 96% RA; 1 Pain 01/21 Adult 19:03 Drug: Dilaudid - HYDROmorphone 4 mg [hydromorphone 2 mg tablet (2 tabs)] Route: PO; jf3 Intake: 16:43 300 ML liquid stool emptied from colostomy bag by patient. 1 Order Results: Lab Order: CBC with Diff; SPEC'M 04/12/16 14:11 Test: WHITE BLOOD COUNT; Value: 5.1; Range: 4.0-10.0; Units: K/mm3; Status: F Test: RED BLOOD COUNT; Value: 3.81; Range: 4.00-5.40; Abnormal: Below low normal; Units: M/mm3; Status: F Test: HEMOGLOBIN; Value: 11.6; Range: 12.0-16.0; Abnormal: Below low normal; Units: g/dl; Status: F Test: HEMATOCRIT; Value: 36.1; Range: 36.0-47.0; Units: %; Status: F Test: MEAN CORPUSCULAR VOLUME; Value: 94.7; Range: 80.0-96.0; Units: fl; Status: F Test: MEAN CORPUSCULAR HEMOGLOBIN; Value: 30.3; Range: 27.0-33.0; Units: pg; Status: F Test: MEAN CORPUSCULAR HGB CONC; Value: 32.0; Range: 32.0-36.5; Units: g/dl; Status: F Test: RED CELL DISTRIBUTION WIDTH; Value: 14.1; Range: 11.5-14.5; Units: %; Status: F Test: PLATELET COUNT, AUTOMATED; Value: 305; Range: 150-450; Units: k/mm3; Status: F Test: NEUTROPHILS %; Value: 62.8; Range: 36.0-66.0; Units: %; Status: F Test: LYMPH %; Value: 26.9; Range: 24.0-44.0; Units: %; Status: F Test: MONO %; Value: 5.2; Range: 0.0-5.0; Abnormal: Above high normal; Units: %; Status: F Test: EOS %; Value: 1.5; Range: 0.0-3.0; Units: %; Status: F Test: BASO %; Value: 1.5; Range: 0.0-1.0; Abnormal: Above high normal; Units: %; Status: F Test: LARGE UNSTAINED CELL %; Value: 2.0; Range: 0.0-4.0; Units: %; Status: F Test: NEUTROPHILS #; Value: 3.2; Range: 1.8-7.7; Units: K/mm3; Status: F Test: LYMPH #; Value: 1.5; Range: 1.5-4.5; Units: K/mm3; Status: F Test: MONO #; Value: 0.3; Range: 0.0-0.8; Units: K/mm3; Status: F Test: EOS #; Value: 0.1; Range: 0.0-0.50; Units: K/mm3; Status: F Test: BASO #; Value: 0.1; Range: 0.0-0.2; Units: K/mm3; Status: F Test: LARGE UNSTAINED CELL #; Value: 0.1; Range: 0.0-0.4; Units: K/mm3; Status: F Lab Order: MED Profile; [facility] 04/12/16 14:11 Test: GLUCOSE, FASTING; Value: 251; Range: 70-105; Abnormal: Above high normal; Units: MG/DL; Status: F Test: BLOOD UREA NITROGEN; Value: 11; Range: 7-18; Units: MG/DL; Status: F Test: CREATININE FOR GFR; Value: 0.80; Range: 0.55-1.02; Units: MG/DL; Status: F Test: GLOMERULAR FILTRATION RATE; Value: > 60.0; Range: >51; Status: F Test: SODIUM LEVEL; Value: 137; Range: 136-145; Units: MEQ/L; Status: F Test: POTASSIUM SERUM; Value: 4.1; Range: 3.5-5.1; Units: MEQ/L; Status: F Test: CHLORIDE LEVEL; Value: 97; Range: 98-107; Abnormal: Below low normal; Units: MEQ/L; Status: F Test: CARBON DIOXIDE LEVEL; Value: 29; Range: 21-32; Units: MEQ/L; Status: F Test: ANION GAP; Value: 11; Range: 8-16; Units: MEQ/L; Status: F Test: CALCIUM LEVEL; Value: 10.1; Range: 8.5-10.1; Units: MG/DL; Status: F Test Note: ; Units are mL/min/1.73 m2 Chronic Kidney Disease Staging per NKF: Stage I & II GFR >=60 Normal to Mildly Decreased Stage III GFR 30-59 Moderately Decreased Stage IV GFR 15-29 Severely Decreased Stage V GFR <15 Very Little GFR Left ESRD GFR <15 on [employer] Lab Order: Magnesium Level; SPEC'M 04/12/16 14:11 Test: MAGNESIUM LEVEL; Value: 2.2; Range: 1.8-2.4; Units: MG/DL; Status: F Radiology Order: Abdomen, Flat\\E\\Upright,PA Chest Test: Abdomen, Flat\\E\\Upright,PA Chest REASON FOR EXAMINATION: Abdomen Pain; PA chest:; ; Cardiac silhouette is moderately enlarged without change. There is a right IJ; venous Port-A-Cath with tip in the expected location of the atriocaval junction.; Bibasilar atelectasis/scarring and/or infiltrates are noted, left greater than; right. A spinal stimulator is identified with superior tip projected over the; T9 and T10 vertebral bodies.; ; Impression : stable moderate cardiomegaly with bibasilar atelectasis/scarring; and/or infiltrate, not significantly changed; ; ; ; Flat and upright KUB: Numerous surgical clips are projected over the abdomen; and pelvis consistent with previous postsurgical changes well as ventral hernia; repair. The patient does have a left lower quadrant ileostomy. There is no; evidence of bowel obstruction or free intraperitoneal air.; ; There is small to moderate air is present within the stomach; ; Impression : stable moderate cardiomegaly with bibasilar atelectasis/scarring; and/or infiltrate, not significantly changed; ; ; Signed by; Kerry Ham MD 04/12/2016 02:53 P; Outcome: 15:05 Decision to Hospitalize by Provider. pc 21:41 Discharge Assessment: patient administered narcotics - yes. Patient was admitted to the [address] or transferred to another facility. The following High Risk Discharge criteria are identified: None. Admitted to Med/Surg accompanied by tech, via stretcher, with chart. Condition: stable. No special radiology studies were completed. Admission hand-off: Report Faxed Fax receipt verified by tamy, 4 pav. Property :Personal belongings accompany Pt. 21:44 Patient left the ED. [facility] Signatures: Dispatcher [employer] EDMS Juan Antunez MD MD pc Ganter, LoriLee, Jhony Powell lg, RN RN Usha Pryor RN RN lf1 Eduardo Chaparro, [employer] LOCATION AND MEASUREMENT TECHNICIAN dd6 Jam Serrano RN RN jmb Farman, Justin,RN RN 3 Chart Complete MTDD
--- NOTE | 2016-04-14 22:45 | EDDOCDS ---
Physician Documentation [facility] Name: Rich Olson Age: 55 yrs Sex: Female : 1960 Arrival Date: 04/12/2016 Time: 13:01 Bed 15 Private MD: Tutu Sanchez Disposition: 04/12 14:54 Critical Care: Critical care not applicable. pc Disposition: 04/12/16 15:05 Hospitalization ordered by Leif Babb for Inpatient Admission. 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 - Bed requested for 4 [place]. - Status is Inpatient Admission. jf3 - Condition is Stable. - Problem is chronic. - Symptoms are unchanged. HPI: 14:54 This 55 yrs old Female presents to ER via Walkin/Carried/Asstd with pc complaints of Abdominal Pain. 14:54 The history is obtained from the patient, the patient's parent. She is complaining of pc no ostomy output, now for 10 days. He has been seen by his PCP and in this ED 4 times in the past week, for the same. Her labs, except for her chronic malabsorption-related hypomagnesemia, have been normal. A CT and 2 abdominal series have been unremarkable except for a chronic nonobstructing parastomal hernia. She has not had any fevers or chills, Resp or symptoms.. She has not been vomiting. She was directed here by here PCP today. Historical: - Allergies: Albuterol (shaky); Aspirin (stomach irritation); Ativan (hallucination); Azithromycin (Hives); BACLOFEN (shakiness); Chlorpromazine (shakiness); Ciprofloxacin (Hives); Codeine Phosphate (anxious); Colchicine (anxious); Darvocet-N 100 (nervous); Droperidol (Dystonic reaction); Fentanyl (nervous); Fluphenazine; GABAPENTIN (Rash); Gabitril (nervous); hydrocodone (confusion); IODINEIODINE CONTAINING ("body our of control"); Ipratropium [place]; Latex (Anaphylaxis); Lidoderm (Rash); Lyrica (nervous); Macrobid (shaky); Meperidine (Sleepy); mesoridazine; Midazolam (shaky and jumpy); Morphine (severe RAMIREZ); Oxycodone HCl (Hives); PENICILLINS (Hives); perphenazine (nervous); Phenergan (nervous); Prochlorperazine Maleate; Promethazine (Dystonic reaction); QUINOLONES (shaky, itchy); Readi-Cat 2; Red Dye; SULFA (SULFONAMIDES) (Hives); Tape (Rash); Theophylline (Seizures); TIAGABINE; Toradol (itchy); Tramadol HCl (nervous); Trifluoperazine; Vicodin (shaky, nervous); - Home Meds: 1. albuterol sulfate 90 mcg/actuation Inhl aepb 2 puffs every 4 hours month ago 2. Dilaudid 4 mg Oral tab 1 tab every 4 hours (Last dose: 04/12/2016 06:30) 3. Zofran IM 4 mg every 8 hours (Last dose: 04/12/2016 07:00) 4. tizanidine 2 mg oral tab 1 tabs BID PRN 5. ranitidine HCl 150 mg Oral tbef 150 mg twice a day 6. Reglan 10 mg Oral tab 1 tab 30 mins before meals 7. Symbicort 160-4.5 mcg/actuation inhalation HFAA 2 puffs 2 times per day 8. amitriptyline 50 mg Oral tab 1 tab once daily 1 tab in am , 3 tabs at bedtime 9. astelin 137mcg/spray twice a day 10. Benadryl 25 mg Oral cap 1 cap as needed 11. Carafate 1 gram Oral tab 1 tab 4 times per day 12. cetirizine 10 mg oral tab 1 tab once daily 13. gemfibrozil 600 mg Oral tab daily 14. Glucerna Oral liqd daily 15. heparin flush fro port 16. Levemir 30 units subcutaneous daily 17. Lomotil 2.5-0.025 mg oral tab as needed 18. magnesium oxide 400 mg Oral tab 400 mg three times a day 19. Nasacort AQ 55 mcg Nasal spra 1 spray once daily 20. Novolog 20 units Sub-Q daily - PMHx: acute bronchitis; Asthma; chronic abdominal pain; chronic pain syndrome; Diabetes - IDDM: controlled; DVT; Fatty Liver, Non-alchoholic; GERD; Hernia; Hypercholesterolemia; hypokalemia; hypomagnesia; Kidney stones; necrotic bowel; UTI; - PSHx: Cholecystectomy; Lumpectomy- Left; Lumpectomy- Right; bilateral knee surgery; Appendectomy; Hysterectomy; Ileostomy Construction; av fistula left leg; tumors removed from right arm; - The history from nurses notes was reviewed: and I agree with what is documented. - Social history: Smoking status: Patient states was never smoker of tobacco. No barriers to communication noted, The patient speaks fluent Jamaican, Speaks appropriately for age. - : The pt / caregiver states he / she is not on anticoagulants. Home medication list is obtained from the patient. - Exposure Risk Screening:: None identified. - Immunization history:: All immunizations up-to-date. - Family history: Not pertinent. - Social history:: the patient is a non-smoker, the patient does not drink alcohol. 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 pc Exam: 14:54 General Appearance: no acute distress, alert. pc 14:54 EENT: normal eye inspection, ears, nose and throat normal, pharynx normal, mucous membranes moist 14:54 Neck: The exam reveals no acute abnormalities. ROM is normal and painless. No nuchal rigidity is noted.. 14:54 Respiratory: no respiratory distress, normal breath sounds, chest non-tender. 14:54 CVS: regular pulse rate, regular rhythm, normal S1 and S2, no murmurs, strong peripheral pulses. 14:54 Abdomen: soft, non-tender, no organomegaly, normal bowel sounds, parastomal hernia which is nontender . 14:54 Back: normal inspection. 14:54 Skin: skin color is normal, warm, dry. 14:54 Extremities: The extremities have a grossly normal appearance, are non-tender, without acute ROM abnormalities. 14:54 Neuro: oriented x 3, cranial nerves normal as tested, no motor deficits, no sensory deficits, normal gait. 14:54 Psych: mood is depressed, affect is flat. Vital Signs: 13:03 BP 128 / 78; Pulse 91; Resp 18 S; Temp 97.1; Pulse Ox 98% on R/A; Weight 75.3 kg / dd6 166.01 lbs (R); Height 5 ft. 7 in. (170.18 cm) (R); 15:22 BP 143 / 64; Pulse 72; Resp 18; Temp 98.5(TE); Pulse Ox 96% on R/A; Pain 10/10; lf1 20:28 BP 122 / 68; Pulse 97; Resp 18; Temp 98.5(TE); Pulse Ox 93% on R/A; Pain 5/10; jf3 13:03 Body Mass Index 26.00 (75.30 kg, 170.18 cm) dd6 MDM: 13:53 CBC with Diff Ordered. EDMS 13:58 Financial registration complete. lg 14:04 [facility] Payment Agreement was scanned into [employer] and attached to record. lg 14:17 Dilaudid - HYDROmorphone 4 mg PO once ordered. pc 14:17 MED Profile Ordered. EDMS 14:17 Magnesium Level Ordered. EDMS 14:18 Abdomen, Flat\\E\\Upright,PA Chest Ordered. EDMS 14:29 CBC with Diff Reviewed. pc 14:44 MED Profile Reviewed. pc 14:44 Magnesium Level Reviewed. pc 14:54 Differential Diagnosis: chronic abdominal pain with known parastomal hernia; reported pc lack of ostomy output for 10 days without physical evidence of the same and suspect secondary gain. Plan: d/w Dr. Sanchez: labs, xray and observe to document strict I+Os. Data reviewed: old medical records, vital signs, nurses notes, lab test results, all radiology studies and available results. Test interpretation: LAB - all labs as ordered have been reviewed, interpreted and considered in the overall management of the clinical presentation; X-RAY - interpreted by Radiologist and personally reviewed, 3-view abdomen series; no acute disease. The patient has been re-examined and re-evaluated. The clinical presentation did not require any ED treatment or interventions. Physician consultation: Dr. Leif Babb regarding admission. Disposition: The historical points, examination findings, and any diagnostic results supporting the provided diagnosis, were discussed with the patient or legal guardian. The need for further work-up and/or treatment in the hospital was explained. 15:06 BED REQUEST+ADM ordered. EDMS 15:38 CONSISTENT CARBOHYDRATES ordered. EDMS 15:39 Admission / Observation Status ordered. EDMS 18:51 Dilaudid - HYDROmorphone 4 mg PO once ordered. lf1 19:31 COMPLETE BLOOD COUNT Ordered. EDMS 19:32 BASIC METABOLIC PROFILE Ordered. EDMS Administered Medications: 14:35 Drug: Dilaudid - HYDROmorphone 4 mg [hydromorphone 2 mg tablet (2 tabs)] Route: PO; jmb 15:22 Follow up: BP 143 / 64; Pulse 72 bpm; Resp 18 bpm; Temp 98.5 Temporal; Pulse Ox 96% RA; lf1 Pain 01/21 Adult 19:03 Drug: Dilaudid - HYDROmorphone 4 mg [hydromorphone 2 mg tablet (2 tabs)] Route: PO; jf3 Signatures: Dispatcher [employer] EDJuan Olivo MD MD pc Ganter, LoriLee, Reg Reg lg Jhony Whitaker RN RN dy Usha Garcia RN RN lf1 Nimco, Debbie, DAIRY CATTLE FARMER DAIRY CATTLE FARMER tmm1 Randy Kc RN RN jf3 Jam Serrano RN The chart was reviewed and I authenticate all verbal orders and agree with the evaluation and treatment provided.Attachments: 14:04 [facility] Payment Agreement lg Chart Complete MTDD
[2016-04-15] MEDS: HYDROmorphone (DILAUDID) 4 MG TAB PO PRN ×6 (04:11→22:08)
[2016-04-15] MEDS: SODIUM CHLORIDE 0.9% INJ 10 ML SYR IV PRN ×2 (05:43→21:21)
[2016-04-15 05:57] LABS: MEAN CORPUSCULAR HEMOGLOBIN 30.9 pg (27.0-33.0); MEAN CORPUSCULAR HGB CONC 32.4 g/dl (32.0-36.5); MEAN CORPUSCULAR VOLUME 95.4 fl (80.0-96.0); RED CELL DISTRIBUTION WIDTH 13.5 % (11.5-14.5); WHITE BLOOD COUNT 4.2 K/mm3 (4.0-10.0)
[2016-04-15 06:00] VITALS: BP 109/63
[2016-04-15 06:16] LABS: ANION GAP 8 MEQ/L (8-16); BLOOD UREA NITROGEN 11 MG/DL (7-18); CALCIUM LEVEL 9.6 MG/DL (8.5-10.1); CARBON DIOXIDE LEVEL 29 MEQ/L (21-32); CHLORIDE LEVEL 103 MEQ/L (98-107); CREATININE FOR GFR 0.57 MG/DL (0.55-1.02); GLOMERULAR FILTRATION RATE > 60.0 (>51); GLUCOSE, FASTING 175 MG/DL (70-105); POTASSIUM SERUM 3.9 MEQ/L (3.5-5.1); SODIUM LEVEL 140 MEQ/L (136-145)
[2016-04-15] MEDS: METOCLOPRAMIDE 10 MG TAB PO SCH ×3 (07:30→16:37)
[2016-04-15] MEDS: HumaLOG INSULIN (NovoLOG) PER UNIT SC SCH ×4 (07:30→21:00)
[2016-04-15] MEDS: SUCRALFATE 1 GM TAB PO SCH ×4 (07:30→21:16)
[2016-04-15] MEDS: SYMBICORT 160/4.5MCG INHALER 6GM INH SCH ×2 (07:31→19:42)
--- NOTE | 2016-04-15 07:58 | IPNPDOC ---
Assessment/Plan Date Seen The patient was seen on 04/15/16. Problems Problems: (1) Abdominal pain Status: Chronic Response to Treatment: Stable Problem Text: X-ray of the abdomen with no acute findings. CT abdomen imaging noted from 04/06, also with no acute findings. Patient's abdomen mildly distended, however soft on palpation. Ostomy site and left lower quadrant noted with no remarkable findings. We will continue to have the patient eat a by mouth diet and monitor input and output. Continue bowel care regimen. Possible seroma? Will order abd U/S. 04/15/16- Abd U/S: "The liver and pancreas are normal in contour, size, and echogenicity without focal hepatic or pancreatic lesions identified. The patient is status post cholecystectomy. No biliary ductal dilatation is appreciated, and the common bile duct measures 2.9 mm diameter. The right kidney is normal in reniform shape without hydronephrosis and measures 10.8 x 4.7 x 3.8 cm. No ascites. Visualized portions of the abdominal aorta normal. Further evaluation of the abdomen demonstrates no obvious discrete fluid collection/seroma. Normal right upper quadrant and gallbladder abdominal ultrasound." Small Bowel Follow Through ordered and pending. (2) Diabetes mellitus type 2 in obese Status: Chronic Response to Treatment: Stable Problem Text: We will continue the patient on Levemir 15 units daily, and insulin sliding scale (3) Asthma Status: Chronic Response to Treatment: Stable Problem Text: No acute shortness of breath or wheezing at this time Continue albuterol, Symbicort (4) GERD (gastroesophageal reflux disease) Status: Chronic Response to Treatment: Stable Problem Text: Continue current regimen (5) Hypomagnesemia Status: Chronic Response to Treatment: Stable Problem Text: Patient serum magnesium levels actually noted to be within normal limits. Plan / VTE VTE Prophylaxis Ordered?: Yes Subjective Review of Systems CC/HPI The patient is a 55-year-old female admitted with a reason for visit of Abdominal Pain. Events since last encounter Pt continues to c/o abd pain. Denies CP, SOB. Constitutional: Denies: Chills, Fever Pulmonary: Denies: Dyspnea Cardiovascular: Denies: Chest Pain Gastrointestinal: Reports: Abdominal Pain Objective Physical Examination General Exam: Positive: Alert, No Acute Distress ENT Exam: Positive: Atraumatic, Mucous membr. moist/pink Chest Exam: Positive: Clear to auscultation, Normal air movement Heart Exam: Positive: Rate Normal, Regular Rhythm Telemetry: Positive: Sinus Abdomen Exam: Positive: BS Hypoactive, Other (mild tenderness to deep palpation in the left lower quadrant. No rebound tenderness, guarding, or rigidity noted. Left lower quadrant ostomy noted with no surrounding erythema, tenderness, or purulent discharge.), Soft Extremity Exam: Negative: Tenderness Vital Signs/I&O Vital Signs Date Time Temp Pulse Resp B/P Pulse Ox O2 Delivery O2 Flow Rate FiO2 04/15/16 06:00 97.2 74 18 109/63 92 Room Air I&O- Last 24 Hours up to 6 AM 04/15/16 06:00 Intake Total 120 ml Output Total 1380 ml Balance -1260 ml Laboratory Data Labs 24H Laboratory Tests 2 04/14/16 11:42: Bedside Glucose (Misc Panel) 142H 04/15/16 05:38: Anion Gap 8, Blood Urea Nitrogen 11, Creatinine 0.57, Sodium Level 140, Potassium Level 3.9, Chloride Level 103, Carbon Dioxide Level 29, Calcium Level 9.6, Glomerular Filtration Rate > 60.0 CBC/BMP Laboratory Tests 04/15/16 05:38 Calcium Level 9.6, Red Blood Count 3.49 L, Mean Corpuscular Volume 95.4, Mean Corpuscular Hemoglobin 30.9, Mean Corpuscular Hemoglobin Concent 32.4, Red Cell Distribution Width 13.5 FSBS Laboratory Tests Test 04/14/16 11:42 Range/Units Bedside Glucose (Misc Panel) 142 70-105 MG/DL Tobi Kumar RPA-Madhu Apr 15, 2016 07:57
[2016-04-15] MEDS: SODIUM CHLORIDE NASAL 0.65% SPRAY BTL (OCEAN) SCH ×2 (08:13→21:17)
[2016-04-15] MEDS: AZELASTINE 137MCG NASAL SPY 30 ML (ASTELIN) SCH ×2 (08:14→21:17)
[2016-04-15] MEDS: SODIUM CHLORIDE 0.9% INJ 10 ML SYR IV SCH (08:16)
[2016-04-15] MEDS: ENOXAPARIN 40 MG/0.4 ML SYRINGE (J1650) SC SCH (08:16)
[2016-04-15] MEDS: GEMFIBROZIL 600 MG TAB PO SCH (11:29)
[2016-04-15] MEDS: tiZANidine 4 MG TAB PO SCH ×2 (11:29→21:16)
[2016-04-15] MEDS: CETIRIZINE (ZyrTEC) 10 MG TAB PO SCH (11:29)
[2016-04-15] MEDS: MAGNESIUM OXIDE 400 MG TAB (MAG-OX) PO SCH ×2 (11:29→21:17)
[2016-04-15] MEDS: raNITIdine SYRUP 150 MG/10 ML UDC PO SCH ×2 (11:29→21:16)
[2016-04-15] MEDS: AMITRIPTYLINE 50 MG TAB PO SCH ×2 (11:30→21:18)
[2016-04-15] MEDS: LEVEMIR (INSULIN DETEMIR) 1 UNITS/0.01ML SC SCH (11:30)
[2016-04-15] MEDS: ONDANSETRON 4MG/2ML VIAL (J2405) IV PRN ×2 (12:50→21:18)
[2016-04-15 14:00] VITALS: BP 115/56
[2016-04-15 22:00] VITALS: BP 118/59
[2016-04-16] MEDS: HYDROmorphone (DILAUDID) 4 MG TAB PO PRN ×5 (02:17→21:13)
[2016-04-16] MEDS: ONDANSETRON 4MG/2ML VIAL (J2405) IV PRN ×2 (03:39→18:49)
[2016-04-16 06:00] VITALS: BP 113/68
[2016-04-16] MEDS: SODIUM CHLORIDE 0.9% INJ 10 ML SYR IV PRN (06:27)
[2016-04-16 06:48] LABS: MEAN CORPUSCULAR HGB CONC 31.3 g/dl (32.0-36.5); RED CELL DISTRIBUTION WIDTH 14.3 % (11.5-14.5); WHITE BLOOD COUNT 4.2 K/mm3 (4.0-10.0)
[2016-04-16] MEDS: SUCRALFATE 1 GM TAB PO SCH ×4 (07:30→21:11)
[2016-04-16] MEDS: METOCLOPRAMIDE 10 MG TAB PO SCH ×3 (07:30→16:56)
[2016-04-16] MEDS: SYMBICORT 160/4.5MCG INHALER 6GM INH SCH ×2 (07:34→20:19)
[2016-04-16 07:36] LABS: BLOOD UREA NITROGEN 14 MG/DL (7-18); CARBON DIOXIDE LEVEL 26 MEQ/L (21-32)
[2016-04-16 08:10] LABS: GLUCOSE, FASTING 222 MG/DL (70-105)
[2016-04-16 08:11] LABS: ANION GAP 11 MEQ/L (8-16); CALCIUM LEVEL 10.3 MG/DL (8.5-10.1); CHLORIDE LEVEL 103 MEQ/L (98-107); GLOMERULAR FILTRATION RATE > 60.0 (>51); POTASSIUM SERUM 4.3 MEQ/L (3.5-5.1); SODIUM LEVEL 140 MEQ/L (136-145)
--- NOTE | 2016-04-16 09:08 | IPNPDOC ---
Assessment/Plan Date Seen The patient was seen on 04/16/16. Problems Problems: (1) Abdominal pain Status: Chronic Response to Treatment: Stable Problem Text: X-ray of the abdomen with no acute findings. CT abdomen imaging noted from 04/06, also with no acute findings. Patient's abdomen mildly distended, however soft on palpation. Ostomy site and left lower quadrant noted with no remarkable findings. We will continue to have the patient eat a by mouth diet and monitor input and output. Continue bowel care regimen. Possible seroma? Will order abd U/S. 04/15/16- Abd U/S: "The liver and pancreas are normal in contour, size, and echogenicity without focal hepatic or pancreatic lesions identified. The patient is status post cholecystectomy. No biliary ductal dilatation is appreciated, and the common bile duct measures 2.9 mm diameter. The right kidney is normal in reniform shape without hydronephrosis and measures 10.8 x 4.7 x 3.8 cm. No ascites. Visualized portions of the abdominal aorta normal. Further evaluation of the abdomen demonstrates no obvious discrete fluid collection/seroma. Normal right upper quadrant and gallbladder abdominal ultrasound." 04/16 - SBFT pending this morning. likely d/c after test completed. (2) Diabetes mellitus type 2 in obese Status: Chronic Response to Treatment: Stable Problem Text: We will continue the patient on Levemir 15 units daily, and insulin sliding scale (3) Asthma Status: Chronic Response to Treatment: Stable Problem Text: No acute shortness of breath or wheezing at this time Continue albuterol, Symbicort (4) GERD (gastroesophageal reflux disease) Status: Chronic Response to Treatment: Stable Problem Text: Continue current regimen (5) Hypomagnesemia Status: Chronic Response to Treatment: Stable Problem Text: Patient serum magnesium levels actually noted to be within normal limits. Plan / VTE VTE Prophylaxis Ordered?: Yes Subjective Review of Systems CC/HPI Pt cont to c/o abd pain, she is tolerating her meals and moving her bowels regularly. She would like to go home today after her SBFT. General: Denies: Fatigue Constitutional: Denies: Chills, Fever Pulmonary: Denies: Cough, Dyspnea Cardiovascular: Denies: Chest Pain, Palpitations Gastrointestinal: Reports: Abdominal Pain, Denies: Constipation, Diarrhea, Nausea, Vomiting Neurological: Denies: Weakness Psych: Reports: Mood Normal Objective Physical Examination General Exam: Positive: Alert, No Acute Distress ENT Exam: Positive: Mucous membr. moist/pink Chest Exam: Positive: Clear to auscultation, Normal air movement Heart Exam: Positive: Rate Normal, Regular Rhythm Telemetry: Positive: Sinus Abdomen Exam: Positive: Normal bowel sounds, Other (mild tenderness to deep palpation in the left lower quadrant. No rebound tenderness, guarding, or rigidity noted. Left lower quadrant ostomy noted with no surrounding erythema, tenderness, or purulent discharge.), Soft Extremity Exam: Negative: Tenderness Vital Signs/I&O Vital Signs Date Time Temp Pulse Resp B/P Pulse Ox O2 Delivery O2 Flow Rate FiO2 04/16/16 06:50 17 Room Air 04/16/16 06:00 97.4 74 113/68 93 I&O- Last 24 Hours up to 6 AM 04/16/16 06:00 Intake Total 840 ml Output Total 2100 ml Balance -1260 ml Laboratory Data Labs 24H Laboratory Tests 2 04/16/16 06:27: Anion Gap 11, Blood Urea Nitrogen 14, Creatinine 0.70, Sodium Level 140, Potassium Level 4.3, Chloride Level 103, Carbon Dioxide Level 26, Calcium Level 10.3H, Glomerular Filtration Rate > 60.0 CBC/BMP Laboratory Tests 04/16/16 06:27 Calcium Level 10.3 H, Red Blood Count 3.67 L, Mean Corpuscular Volume 96.0, Mean Corpuscular Hemoglobin 30.0, Mean Corpuscular Hemoglobin Concent 31.3 L, Red Cell Distribution Width 14.3 ARELY MARC PA-C Apr 16, 2016 09:08
[2016-04-16] MEDS ORDERED: GASTROGRAFIN SOLUTION 30ML (Q9963) As Ordered ONE (09:18)
[2016-04-16 10:02] LABS: MAGNESIUM LEVEL 1.8 MG/DL (1.8-2.4)
[2016-04-16] MEDS: HumaLOG INSULIN (NovoLOG) PER UNIT SC SCH ×4 (10:52→21:11)
[2016-04-16 11:30] VITALS: BP 116/73
[2016-04-16] MEDS: raNITIdine SYRUP 150 MG/10 ML UDC PO SCH ×2 (11:59→21:10)
[2016-04-16] MEDS: ENOXAPARIN 40 MG/0.4 ML SYRINGE (J1650) SC SCH (11:59)
[2016-04-16] MEDS: LEVEMIR (INSULIN DETEMIR) 1 UNITS/0.01ML SC SCH (11:59)
[2016-04-16] MEDS: CETIRIZINE (ZyrTEC) 10 MG TAB PO SCH (12:00)
[2016-04-16] MEDS: MAGNESIUM OXIDE 400 MG TAB (MAG-OX) PO SCH ×2 (12:00→21:11)
[2016-04-16] MEDS: AMITRIPTYLINE 50 MG TAB PO SCH ×2 (12:01→21:11)
[2016-04-16] MEDS: tiZANidine 4 MG TAB PO SCH ×2 (12:01→21:11)
[2016-04-16] MEDS: GEMFIBROZIL 600 MG TAB PO SCH (12:01)
[2016-04-16] MEDS: SODIUM CHLORIDE 0.9% INJ 10 ML SYR IV SCH (12:22)
[2016-04-16] MEDS: SODIUM CHLORIDE NASAL 0.65% SPRAY BTL (OCEAN) SCH ×2 (12:22→21:12)
[2016-04-16] MEDS: AZELASTINE 137MCG NASAL SPY 30 ML (ASTELIN) SCH ×2 (12:22→21:12)
[2016-04-16] MEDS ORDERED: MAG SULF 1GM/100ML (MAG RUN) 1 GM in APPROPRIATE DILUENT 1 EA IV ONE (13:00)
[2016-04-16 14:15] VITALS: BP 108/71
--- NOTE | 2016-04-16 19:53 | REP ---
SMALL BOWEL FOLLOW THROUGH: The procedure was performed under the direct supervision of Dr. Camejo. The images were reviewed with Dr. Camejo. The [employer] scout film shows no organomegaly or pathological masses. The intestinal gas pattern is nonspecific. There are multiple surgical clips and bowel sutures noted overlying the abdomen. The patient has an ostomy on the left abdomen. There is a dorsal column stimulator in place with the power pack overlying the right abdomen. A 50/50 solution of Gastrografin and water was instilled. The contrast was followed to the level of the ostomy bag. Small bowel transit time is approximately 30 minutes. During fluoroscopy gentle palpation shows all loops are freely movable and pliable. There are no fixed or angulated loops. There are small bowel loops seen in a parastomal hernia. There is no evidence of stricture or obstruction. IMPRESSION: There are small bowel loops seen in a parastomal hernia without evidence of obstruction or stricture. Otherwise, Gastrografin small bowel follow through within normal limits. 1 minute and 28 seconds of fluoroscopy time was utilized for this procedure. Reviewed by REGLA Orozco 04/17/2016 08:33 AEdited and Signed by Geovanni Camejo MD 04/17/2016 05:04 P
[2016-04-16 22:00] VITALS: BP 135/75
[2016-04-17] MEDS: SODIUM CHLORIDE 0.9% INJ 10 ML SYR IV PRN ×3 (01:27→12:52)
[2016-04-17] MEDS: HYDROmorphone (DILAUDID) 4 MG TAB PO PRN ×3 (01:27→10:40)
[2016-04-17] MEDS: ONDANSETRON 4MG/2ML VIAL (J2405) IV PRN ×2 (01:27→12:52)
[2016-04-17 06:00] VITALS: BP 121/60
[2016-04-17 06:01] LABS: MEAN CORPUSCULAR VOLUME 96.9 fl (80.0-96.0); RED CELL DISTRIBUTION WIDTH 14.3 % (11.5-14.5); WHITE BLOOD COUNT 4.6 K/mm3 (4.0-10.0)
[2016-04-17 06:39] LABS: ANION GAP 8 MEQ/L (8-16); BLOOD UREA NITROGEN 18 MG/DL (7-18); CALCIUM LEVEL 10.6 MG/DL (8.5-10.1); CARBON DIOXIDE LEVEL 29 MEQ/L (21-32); CHLORIDE LEVEL 102 MEQ/L (98-107); CREATININE FOR GFR 0.68 MG/DL (0.55-1.02); GLOMERULAR FILTRATION RATE > 60.0 (>51); GLUCOSE, FASTING 260 MG/DL (70-105); POTASSIUM SERUM 4.1 MEQ/L (3.5-5.1); SODIUM LEVEL 139 MEQ/L (136-145)
[2016-04-17] MEDS: SYMBICORT 160/4.5MCG INHALER 6GM INH SCH (07:52)
[2016-04-17 08:04] LABS: ALBUMIN 3.4 GM/DL (3.2-5.2); ALBUMIN/GLOBULIN RATIO 0.77 (1.00-1.93); ALKALINE PHOSPHATASE 118 U/L (45-117); ALT/SGPT 27 U/L (12-78); AST/SGOT 17 U/L (15-37); BILIRUBIN,DIRECT < 0.1 MG/DL (0.0-0.2); BILIRUBIN,TOTAL 0.2 MG/DL (0.2-1.0); MAGNESIUM LEVEL 1.7 MG/DL (1.8-2.4); TOTAL PROTEIN 7.8 GM/DL (6.4-8.2)
[2016-04-17] MEDS ORDERED: MAG SULF 1GM/100ML (MAG RUN) 1 GM in APPROPRIATE DILUENT 1 EA IV ONE (08:15)
[2016-04-17] MEDS: GEMFIBROZIL 600 MG TAB PO SCH (08:34)
[2016-04-17] MEDS: METOCLOPRAMIDE 10 MG TAB PO SCH ×2 (08:34→12:52)
[2016-04-17] MEDS: CETIRIZINE (ZyrTEC) 10 MG TAB PO SCH (08:34)
[2016-04-17] MEDS: SUCRALFATE 1 GM TAB PO SCH ×2 (08:35→12:52)
[2016-04-17] MEDS: AMITRIPTYLINE 50 MG TAB PO SCH (08:35)
[2016-04-17] MEDS: raNITIdine SYRUP 150 MG/10 ML UDC PO SCH (08:36)
[2016-04-17] MEDS: MAGNESIUM OXIDE 400 MG TAB (MAG-OX) PO SCH (08:36)
[2016-04-17] MEDS: LEVEMIR (INSULIN DETEMIR) 1 UNITS/0.01ML SC SCH (08:36)
[2016-04-17] MEDS: HumaLOG INSULIN (NovoLOG) PER UNIT SC SCH ×2 (08:37→12:53)
[2016-04-17] MEDS: ENOXAPARIN 40 MG/0.4 ML SYRINGE (J1650) SC SCH (08:38)
[2016-04-17] MEDS: AZELASTINE 137MCG NASAL SPY 30 ML (ASTELIN) SCH (08:42)
[2016-04-17] MEDS: SODIUM CHLORIDE NASAL 0.65% SPRAY BTL (OCEAN) SCH (08:42)
--- NOTE | 2016-04-17 08:44 | DSES ---
ADDENDUM: 04/17/2016 DATE OF ADMISSION: 04/15/2016 DATE OF DISCHARGE: 04/17/2016 The patient was unable to be discharged home yesterday as scheduled secondary to some late test results and inability to have family come pick her up in the later evening hours. This morning, the patient has a lower magnesium level of 1.7. She will receive one run of magnesium today and discharge home. She does have elevated calcium at 10.6. We will evaluate an ionized calcium prior to discharge and repeat CMP, magnesium level in the morning. The patient is discharged in stable and satisfactory condition at the time of discharge. edited: 04/18/2016 [id number] tkf MARLYN
[2016-04-17] MEDS: tiZANidine 4 MG TAB PO SCH (08:45)
[2016-04-17] MEDS: SODIUM CHLORIDE 0.9% INJ 10 ML SYR IV SCH (08:46)
[2016-04-17] MEDS: MAG SULF 1GM/100ML (MAG RUN) 1 GM in APPROPRIATE DILUENT 1 EA IV SCH ×2 (10:00→11:25)
== END 2016-04-17 13:09 | disposition home health service (06) | DRG 251 ==
LOC: M ED 13:01 → M ED INP 15:14 → M MSPAV 21:56 → OBSVTOIN 04-15 15:14
PROVIDERS: ADMIT Internal Medicine; ATTEND Family Medicine
DX: R10.9 Unspecified abdominal pain (principal); E83.42 Hypomagnesemia; E11.9 Type 2 diabetes mellitus without complications; J45.909 Unspecified asthma, uncomplicated; E78.5 Hyperlipidemia, unspecified; E66.9 Obesity, unspecified; Z79.4 Long term (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; Z79.899 Other long term (current) drug therapy; Z93.2 Ileostomy status; Z90.49 Acquired absence of other specified parts of digestive tract; Z90.710 Acquired absence of both cervix and uterus; Z68.26 Body mass index [BMI] 26.0-26.9, adult

== ENCOUNTER → 2016-04-18 | Outpatient (REF) | payer OTHER ==
[~2016-04-18] MED LIST changes: +GAS125CH PO; +LACT10SO29 PO; +TIZA2TA PO
[2016-04-18 15:29] LABS: ALBUMIN 3.7 GM/DL (3.2-5.2); ALBUMIN/GLOBULIN RATIO 0.88 (1.00-1.93); ALKALINE PHOSPHATASE 123 U/L (45-117); ALT/SGPT 29 U/L (12-78); ANION GAP 11 MEQ/L (8-16); AST/SGOT 15 U/L (15-37); BILIRUBIN,TOTAL 0.2 MG/DL (0.2-1.0); BLOOD UREA NITROGEN 14 MG/DL (7-18); CALCIUM LEVEL 10.6 MG/DL (8.5-10.1); CARBON DIOXIDE LEVEL 26 MEQ/L (21-32); CHLORIDE LEVEL 101 MEQ/L (98-107); CREATININE FOR GFR 0.79 MG/DL (0.55-1.02); GLOMERULAR FILTRATION RATE > 60.0 (>51); GLUCOSE, FASTING 348 MG/DL (70-105); MAGNESIUM LEVEL 1.5 MG/DL (1.8-2.4); POTASSIUM SERUM 4.3 MEQ/L (3.5-5.1); SODIUM LEVEL 138 MEQ/L (136-145); TOTAL PROTEIN 7.9 GM/DL (6.4-8.2)
== END ==
LOC: M LAB REF 14:57
PROVIDERS: ATTEND Family Medicine
DX: E11.22 Type 2 diabetes mellitus with diabetic chronic kidney disease (principal); N18.3 Chronic kidney disease, stage 3 (moderate)

== ENCOUNTER 2016-04-24 06:44 | Outpatient (CLI) | payer OTHER ==
[~2016-04-24] VITALS: Ht 170.2 cm; Wt 77.1 kg
[~2016-04-24 06:44] MED LIST changes: +SODIUM CHLORIDE 0.9% INJ 10 ML SYR IV SCH
[2016-04-24] MEDS ORDERED: ONDANSETRON 4MG/2ML VIAL (J2405) IV ONE (06:45)
== END 2016-04-24 07:20 | disposition home or self-care (01) ==
LOC: M INFU 06:44
PROVIDERS: ATTEND Family Medicine
DX: E83.42 Hypomagnesemia (principal)
CPT/HCPCS: 36415; 36591; 83735; 96374; J2405

== ENCOUNTER 2016-04-26 06:46 | Outpatient (CLI) | payer OTHER ==
[~2016-04-26] VITALS: Ht 170.2 cm; Wt 77.1 kg
[~2016-04-26 06:46] MED LIST changes: +ONDANSETRON 4MG/2ML VIAL (J2405) IV ONE; +SODIUM CHLORIDE 0.9% INJ 10 ML SYR IV SCH
[2016-04-26] MEDS ORDERED: MAGNESIUM SULFATE 1 GM/100 ML D5W BAG (10MG/ML) (J3475) IV SCH (07:00)
== END 2016-04-26 11:30 | disposition home or self-care (01) ==
LOC: M INFU 06:46
PROVIDERS: ATTEND Family Medicine
DX: E83.42 Hypomagnesemia (principal)
CPT/HCPCS: 96365; 96366; J2405; J3475

== ENCOUNTER → 2016-04-26 | Outpatient (REF) | payer OTHER ==
[~2016-04-26] MED LIST changes: -SODIUM CHLORIDE 0.9% INJ 10 ML SYR IV SCH
== END ==
LOC: M SFHCPLAZ 10:13
PROVIDERS: ATTEND Family Medicine
DX: R30.0 Dysuria (principal)

== ENCOUNTER 2016-05-01 06:47 | Outpatient (CLI) | payer OTHER ==
[~2016-05-01 06:47] MED LIST changes: -ONDANSETRON 4MG/2ML VIAL (J2405) IV ONE; -SODIUM CHLORIDE 0.9% INJ 10 ML SYR IV SCH
[2016-05-01] MEDS ORDERED: ONDANSETRON 4MG/2ML VIAL (J2405) IV ONE (07:00)
[2016-05-01] MEDS ORDERED: SODIUM CHLORIDE 0.9% INJ 10 ML SYR IV SCH (09:00)
== END 2016-05-01 07:45 | disposition home or self-care (01) ==
LOC: M INFU 06:47
PROVIDERS: ATTEND Family Medicine
DX: E83.42 Hypomagnesemia (principal); Z79.899 Other long term (current) drug therapy; Z79.4 Long term (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; Z88.8 Allergy status to other drugs, medicaments and biological substances; Z88.5 Allergy status to narcotic agent; Z91.040 Latex allergy status; Z88.1 Allergy status to other antibiotic agents; Z91.02 Food additives allergy status; Z91.018 Allergy to other foods; Z88.0 Allergy status to penicillin; Z88.2 Allergy status to sulfonamides; Z91.048 Other nonmedicinal substance allergy status
CPT/HCPCS: 36415; 83735; 96365; J2405

== ENCOUNTER 2016-05-03 06:38 | Outpatient (CLI) | payer OTHER ==
[2016-05-03] MEDS ORDERED: ONDANSETRON 4MG/2ML VIAL (J2405) IV ONE (06:45)
[2016-05-03] MEDS ORDERED: MAGNESIUM SULFATE 1 GM/100 ML D5W BAG (10MG/ML) (J3475) IV SCH (07:00)
[2016-05-03] MEDS ORDERED: SODIUM CHLORIDE 0.9% INJ 10 ML SYR IV SCH (09:00)
== END 2016-05-03 11:30 | disposition home or self-care (01) ==
LOC: M INFU 06:38
PROVIDERS: ATTEND Family Medicine
DX: E83.42 Hypomagnesemia (principal); Z79.899 Other long term (current) drug therapy; Z79.4 Long term (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; Z88.1 Allergy status to other antibiotic agents; Z88.8 Allergy status to other drugs, medicaments and biological substances; Z91.040 Latex allergy status; Z91.02 Food additives allergy status; Z91.018 Allergy to other foods; Z88.0 Allergy status to penicillin; Z88.5 Allergy status to narcotic agent; Z88.6 Allergy status to analgesic agent
CPT/HCPCS: 96365; 96366; 96375; J2405; J3475

== ENCOUNTER 2016-05-08 06:48 | Outpatient (CLI) | payer OTHER ==
[~2016-05-08] VITALS: Ht 170.2 cm; Wt 77.1 kg
[2016-05-08] MEDS ORDERED: ONDANSETRON 4MG/2ML VIAL (J2405) IV ONE (07:00)
[2016-05-08] MEDS ORDERED: SODIUM CHLORIDE 0.9% INJ 10 ML SYR IV SCH (07:00)
== END 2016-05-08 08:00 | disposition home or self-care (01) ==
LOC: M INFU 06:48
PROVIDERS: ATTEND Family Medicine
DX: E83.42 Hypomagnesemia (principal); Z79.899 Other long term (current) drug therapy; Z88.8 Allergy status to other drugs, medicaments and biological substances; Z88.5 Allergy status to narcotic agent; Z91.018 Allergy to other foods; Z88.1 Allergy status to other antibiotic agents
CPT/HCPCS: 36415; 83735; 96365; J2405

== ENCOUNTER 2016-05-08 17:46 | Emergency (ER) | payer OTHER ==
[2016-05-08] MEDS ORDERED: ONDANSETRON 4MG/2ML VIAL (J2405) As Ordered ONE ×2 (19:49→19:53)
[2016-05-08] MEDS ORDERED: HYDROmorphone HCL 1 MG/ML SYRINGE (J1170) As Ordered ONE ×2 (19:49→21:18)
[2016-05-08 20:10] LABS: BASO % 0.5 % (0.0-1.0); EOS # 0.1 K/mm3 (0.0-0.50); EOS % 2.2 % (0.0-3.0); LARGE UNSTAINED CELL # 0.1 K/mm3 (0.0-0.4); LARGE UNSTAINED CELL % 2.4 % (0.0-4.0); LYMPH # 1.7 K/mm3 (1.5-4.5); LYMPH % 31.8 % (24.0-44.0); MEAN CORPUSCULAR HEMOGLOBIN 31.3 pg (27.0-33.0); MEAN CORPUSCULAR HGB CONC 33.3 g/dl (32.0-36.5); MONO # 0.3 K/mm3 (0.0-0.8); MONO % 5.5 % (0.0-5.0); NEUTROPHILS # 3.1 K/mm3 (1.8-7.7); NEUTROPHILS % 57.6 % (36.0-66.0); PLATELET COUNT, AUTOMATED 294 k/mm3 (150-450); WHITE BLOOD COUNT 5.4 K/mm3 (4.0-10.0)
[2016-05-08 20:35] LABS: ALBUMIN 3.5 GM/DL (3.2-5.2); ALBUMIN/GLOBULIN RATIO 0.76 (1.00-1.93); ALKALINE PHOSPHATASE 132 U/L (45-117); ALT/SGPT 26 U/L (12-78); ANION GAP 7 MEQ/L (8-16); AST/SGOT 14 U/L (15-37); BILIRUBIN,DIRECT < 0.1 MG/DL (0.0-0.2); BILIRUBIN,TOTAL 0.2 MG/DL (0.2-1.0); BLOOD UREA NITROGEN 14 MG/DL (7-18); CALCIUM LEVEL 10.4 MG/DL (8.5-10.1); CARBON DIOXIDE LEVEL 32 MEQ/L (21-32); CHLORIDE LEVEL 100 MEQ/L (98-107); CREATININE FOR GFR 0.62 MG/DL (0.55-1.02); GLOMERULAR FILTRATION RATE > 60.0 (>51); GLUCOSE, FASTING 227 MG/DL (70-105); SODIUM LEVEL 139 MEQ/L (136-145); TOTAL PROTEIN 8.1 GM/DL (6.4-8.2)
--- NOTE | 2016-05-08 22:09 | EDDOCDS ---
Nurse's Notes [facility] Name: Rich Olson Age: 55 yrs Sex: Female : 1960 Arrival Date: 05/08/2016 Time: 17:46 Bed I8 / 16 Private MD: Tutu Sanchez MD Diagnosis: Generalized abdominal pain-chronic Presentation: 05/08 17:57 Presenting complaint: Patient states: Worsening abdominal pain since last night. Risk mlb1 factors: the patient reports no vaginal bleeding. Adult Sepsis Screening: The patient does not have new or worsening altered mentation. Patient's respiratory rate is less than 22. Systolic blood pressure is greater than 100. Patient has a qSOFA score of 0- Negative Sepsis Screen. Suicide/Homicide risk assessment- the patient denies having any suicidal and/or homicidal ideations and does not present with any other emotional, behavioral or mental health complaints. Status: Patient is not a creative services writer or dependent. Transition of care: patient was not received from another setting of care. 17:57 Acuity: THADDEUS Level 3 mlb1 17:57 Method Of Arrival: Walkin/Carried/Asstd mlb1 Triage Assessment: 18:01 General: Appears in no apparent distress, Behavior is appropriate for age, cooperative. mlb1 Pain: Location: abdomen Pain currently is 10 out of 10 on a pain scale. HIV screening NA for this visit Offered previously. FACILITY SECURITY OFFICER: 22:08 LMP N/A - Irregular menses jmb Historical: - Allergies: Albuterol (shaky); Aspirin (stomach irritation); Ativan (hallucination); Azithromycin (Hives); BACLOFEN (shakiness); Chlorpromazine (shakiness); Ciprofloxacin (Hives); Codeine Phosphate (anxious); Colchicine (anxious); Darvocet-N 100 (nervous); Droperidol (Dystonic reaction); Fentanyl (nervous); Fluphenazine; GABAPENTIN (Rash); Gabitril (nervous); hydrocodone (confusion); IODINEIODINE CONTAINING ("body our of control"); Ipratropium [place]; Latex (Anaphylaxis); Lidoderm (Rash); Lyrica (nervous); Macrobid (shaky); Meperidine (Sleepy); mesoridazine; Midazolam (shaky and jumpy); Morphine (severe RAMIREZ); Oxycodone HCl (Hives); PENICILLINS (Hives); perphenazine (nervous); Phenergan (nervous); Prochlorperazine Maleate; Promethazine (Dystonic reaction); QUINOLONES (shaky, itchy); Readi-Cat 2; Red Dye; SULFA (SULFONAMIDES) (Hives); Tape (Rash); Theophylline (Seizures); TIAGABINE; Toradol (itchy); Tramadol HCl (nervous); Trifluoperazine; Vicodin (shaky, nervous); - Home Meds: 1. albuterol sulfate 90 mcg/actuation Inhl aepb 2 puffs every 4 hours month ago 2. amitriptyline 50 mg Oral tab 1 tab once daily 1 tab in am , 3 tabs at bedtime 3. astelin 137mcg/spray twice a day 4. Benadryl 25 mg Oral cap 1 cap as needed 5. Carafate 1 gram Oral tab 1 tab 4 times per day 6. cetirizine 10 mg oral tab 1 tab once daily 7. Dilaudid 4 mg Oral tab 1 tab every 4 hours 8. gemfibrozil 600 mg Oral tab daily 9. Glucerna Oral liqd daily 10. heparin flush fro port 11. Levemir 30 units subcutaneous daily 12. Lomotil 2.5-0.025 mg oral tab as needed 13. magnesium oxide 400 mg Oral tab 400 mg three times a day 14. Nasacort AQ 55 mcg Nasal spra 1 spray once daily 15. Novolog 20 units Sub-Q daily 16. ranitidine HCl 150 mg Oral tbef 150 mg twice a day 17. Reglan 10 mg Oral tab 1 tab 30 mins before meals 18. Symbicort 160-4.5 mcg/actuation inhalation HFAA 2 puffs 2 times per day 19. tizanidine 2 mg oral tab 1 tabs BID PRN 20. Zofran IM 4 mg every 8 hours - PMHx: acute bronchitis; Asthma; chronic abdominal pain; chronic pain syndrome; Diabetes - IDDM: controlled; DVT; Fatty Liver, Non-alchoholic; GERD; Hernia; Hypercholesterolemia; hypokalemia; hypomagnesia; Kidney stones; necrotic bowel; UTI; - PSHx: Cholecystectomy; Lumpectomy- Left; Lumpectomy- Right; bilateral knee surgery; Appendectomy; Hysterectomy; Ileostomy Construction; av fistula left leg; tumors removed from right arm; - Social history: Smoking status: Patient states was never smoker of tobacco. No barriers to communication noted, The patient speaks fluent Uzbek, Speaks appropriately for age. - Family history: Not pertinent. - : The pt / caregiver states he / she is not on anticoagulants. Home medication list is obtained from the patient. - Exposure Risk Screening:: None identified. Screenin:11 Screening information is obtained from the patient. Fall risk: No risks identified. jmb Assistance ADL's: requires no assistance with activities of daily living. Abuse/DV Screen: The patient / caregiver reports he/she is: not in a situation that causes fear, pain or injury. Nutritional screening: No deficits noted. home support is adequate. 22:05 Advance Directives: Currently, there is no health care proxy. There is no active DNR jmb order. There is no living will. There is no Power of Call Center Supervisor. Assessment: 20:11 General: Appears in no apparent distress, Behavior is appropriate for age, cooperative. jmb Pain: Location: abdomen Pain currently is 8 out of 10 on a pain scale. Neurological: Level of Consciousness is awake, alert, obeys commands, Oriented to person, place, time, Speech is normal, Facial symmetry appears normal, Facial symmetry: tongue is midline. Cardiovascular: Capillary refill < 3 seconds Heart tones present Pulses are all present. Rhythm is regular. Respiratory: Airway is patent Respiratory effort is even, unlabored, Respiratory pattern is regular, symmetrical, Breath sounds are clear bilaterally. GI: Abdomen is distended, Bowel sounds present X 4 quads. Abd is soft X 4 quads. Derm: Skin is pink, warm & dry. Musculoskeletal: Range of motion intact in all extremities. 20:46 General: Appears in no apparent distress, comfortable, Behavior is appropriate for age, jmb cooperative, patient LAYING ON STRETCHER WATCHING TELEVISION. no Voiced complaints at his time. . Neurological: Level of Consciousness is awake, alert, obeys commands, Oriented to person, place, time. Respiratory: Airway is patent Respiratory effort is even, unlabored, Respiratory pattern is regular, symmetrical. 21:54 General: Appears in no apparent distress, comfortable, Behavior is appropriate for age, jmb cooperative, Patient laying on stretcher watching television. NO voiced complaints at this time. . Neurological: Level of Consciousness is awake, alert, obeys commands, Oriented to person, place, time. Respiratory: Airway is patent Respiratory effort is even, unlabored, Respiratory pattern is regular, symmetrical. 22:05 General: Patient instructed on discharge instructions. Patient asked if there were any b questions regarding discharge, patient stated no. Access taken out. Patient signed discharge instructions. Patient discharged in stable condition. . Vital Signs: 17:48 BP 122 / 68; Pulse 90; Resp 18 S; Temp 98.4(O); Pulse Ox 94% on R/A; Weight 75.3 kg gr2 (R); Height 5 ft. 7 in. (170.18 cm) (R); Pain 7/10; 22:05 BP 126 / 70; Pulse 88; Resp 18; Temp 98.0(O); Pulse Ox 94% on R/A; Pain 0/10; jmb 17:48 Body Mass Index 26.00 (75.30 kg, 170.18 cm) gr2 Vitals: 17:48 Log In Time: May 08, 2016 at 17:48. gr2 ED Course: 17:48 Patient visited by Josephine Mckeon. gr2 17:48 Tutu Sanchez is Private Physician. gr2 17:48 Patient moved to Waiting gr2 17:49 Patient visited by Josephine Mckeon. gr2 17:50 Patient moved to Pre RCE gr2 17:57 Patient visited by Vladislav Buckley, RN. mlb1 17:58 Triage Initiated mlb1 18:02 Patient visited by Vladislav Buckley, RN. mlb1 19:33 Patient moved to I8 / 16 mdr 19:34 [facility] Stevens FNP [facility]. le 19:42 Patient visited by Usha Stevens FNP. le 19:42 Patient visited by Usha Stevens FNP. le 20:03 Lactic Acid (Camejo tube on ice) Sent. dsf 20:04 Basic Metabolic Profile Sent. dsf 20:04 CBC with Diff Sent. dsf 20:04 Lipase Sent. dsf 20:04 Liver Profile Sent. dsf 20:11 The patient / caregiver is instructed regarding the plan of care and ED course. jmb 20:11 Accessed using accessed w/ # 20 Serrano needle, sterile technique, per hospital protocol. jmb InfusaPort in patient's anterior aspect of right upper chest. Clean & dry. Good blood return. Flushes easily. Labs drawn. (by ED staff). Sent per order to lab. 20:13 Patient visited by Jam Serrano,CORIE. nancy 20:27 [facility] [place] Payment Agreement was scanned into [employer] and attached to record. zo 20:35 Patient moved to Radiology hugo 20:35 Patient moved to I8 / 16 hugo 20:46 Urinalysis Sent. nancy 20:47 Patient visited by Jam Serrano,CORIE. nancy 21:23 Patient visited by Byron Dockery PCA. kb5 21:55 Patient visited by Jam Serrano RN. nancy 21:57 Silver Campuzano MD is Referral Physician. martin 22:05 Discontinued No redness/swelling at site. No procedures done that require assistance. jmb Administered Medications: 20:10 Drug: NS 0.9% 1000 ml [sodium chloride 0.9 % intravenous solution] Route: IV; Rate: jmb bolus; Site: Implantable Access Device; 20:10 Drug: Ondansetron 4 mg [ondansetron HCl 2 mg/mL intravenous solution (2 mL)] Route: jmb IVP; Site: Implantable Access Device; 20:11 Drug: Dilaudid - HYDROmorphone 1 mg [hydromorphone 1 mg/mL injection syringe (1 mL)] jmb Route: IVP; Site: Implantable Access Device; 21:25 Drug: Dilaudid - HYDROmorphone 1 mg [hydromorphone 1 mg/mL injection syringe (1 mL)] mb9 Route: IVP; Site: Implantable Access Device; 21:54 Drug: NS 0.9% 1000 ml [sodium chloride 0.9 % intravenous solution] Route: IV; Rate: 100 jmb mL/hr; Site: Implantable Access Device; Order Results: Lab Order: Basic Metabolic Profile; SPEC'M 05/08/16 20:01 Test: GLUCOSE, FASTING; Value: 227; Range: 70-105; Abnormal: Above high normal; Units: MG/DL; Status: F Test: BLOOD UREA NITROGEN; Value: 14; Range: 7-18; Units: MG/DL; Status: F Test: CREATININE FOR GFR; Value: 0.62; Range: 0.55-1.02; Units: MG/DL; Status: F Test: GLOMERULAR FILTRATION RATE; Value: > 60.0; Range: >51; Status: F Test: SODIUM LEVEL; Value: 139; Range: 136-145; Units: MEQ/L; Status: F Test: POTASSIUM SERUM; Value: 4.0; Range: 3.5-5.1; Units: MEQ/L; Status: F Test: CHLORIDE LEVEL; Value: 100; Range: 98-107; Units: MEQ/L; Status: F Test: CARBON DIOXIDE LEVEL; Value: 32; Range: 21-32; Units: MEQ/L; Status: F Test: ANION GAP; Value: 7; Range: 8-16; Abnormal: Below low normal; Units: MEQ/L; Status: F Test: CALCIUM LEVEL; Value: 10.4; Range: 8.5-10.1; Abnormal: Above high normal; Units: MG/DL; Status: F Test Note: ; Units are mL/min/1.73 m2 Chronic Kidney Disease Staging per NKF: Stage I & II GFR >=60 Normal to Mildly Decreased Stage III GFR 30-59 Moderately Decreased Stage IV GFR 15-29 Severely Decreased Stage V GFR <15 Very Little GFR Left ESRD GFR <15 on CHIEF SCIENCE OFFICER Lab Order: CBC with Diff; SPEC'M 05/08/16 20:01 Test: WHITE BLOOD COUNT; Value: 5.4; Range: 4.0-10.0; Units: K/mm3; Status: F Test: RED BLOOD COUNT; Value: 3.70; Range: 4.00-5.40; Abnormal: Below low normal; Units: M/mm3; Status: F Test: HEMOGLOBIN; Value: 11.6; Range: 12.0-16.0; Abnormal: Below low normal; Units: g/dl; Status: F Test: HEMATOCRIT; Value: 34.8; Range: 36.0-47.0; Abnormal: Below low normal; Units: %; Status: F Test: MEAN CORPUSCULAR VOLUME; Value: 94.0; Range: 80.0-96.0; Units: fl; Status: F Test: MEAN CORPUSCULAR HEMOGLOBIN; Value: 31.3; Range: 27.0-33.0; Units: pg; Status: F Test: MEAN CORPUSCULAR HGB CONC; Value: 33.3; Range: 32.0-36.5; Units: g/dl; Status: F Test: RED CELL DISTRIBUTION WIDTH; Value: 14.0; Range: 11.5-14.5; Units: %; Status: F Test: PLATELET COUNT, AUTOMATED; Value: 294; Range: 150-450; Units: k/mm3; Status: F Test: NEUTROPHILS %; Value: 57.6; Range: 36.0-66.0; Units: %; Status: F Test: LYMPH %; Value: 31.8; Range: 24.0-44.0; Units: %; Status: F Test: MONO %; Value: 5.5; Range: 0.0-5.0; Abnormal: Above high normal; Units: %; Status: F Test: EOS %; Value: 2.2; Range: 0.0-3.0; Units: %; Status: F Test: BASO %; Value: 0.5; Range: 0.0-1.0; Units: %; Status: F Test: LARGE UNSTAINED CELL %; Value: 2.4; Range: 0.0-4.0; Units: %; Status: F Test: NEUTROPHILS #; Value: 3.1; Range: 1.8-7.7; Units: K/mm3; Status: F Test: LYMPH #; Value: 1.7; Range: 1.5-4.5; Units: K/mm3; Status: F Test: MONO #; Value: 0.3; Range: 0.0-0.8; Units: K/mm3; Status: F Test: EOS #; Value: 0.1; Range: 0.0-0.50; Units: K/mm3; Status: F Test: BASO #; Value: 0.0; Range: 0.0-0.2; Units: K/mm3; Status: F Test: LARGE UNSTAINED CELL #; Value: 0.1; Range: 0.0-0.4; Units: K/mm3; Status: F Lab Order: Lipase; SPEC'M 05/08/16 20:01 Test: LIPASE; Value: 126; Range: 73-393; Units: U/L; Status: F Lab Order: Liver Profile; SPEC'M 05/08/16 20:01 Test: AST/SGOT; Value: 14; Range: 15-37; Abnormal: Below low normal; Units: U/L; Status: F Test: ALT/SGPT; Value: 26; Range: 12-78; Units: U/L; Status: F Test: ALKALINE PHOSPHATASE; Value: 132; Range: 45-117; Abnormal: Above high normal; Units: U/L; Status: F Test: BILIRUBIN,TOTAL; Value: 0.2; Range: 0.2-1.0; Units: MG/DL; Status: F Test: BILIRUBIN,DIRECT; Value: < 0.1; Range: 0.0-0.2; Units: MG/DL; Status: F Test: TOTAL PROTEIN; Value: 8.1; Range: 6.4-8.2; Units: GM/DL; Status: F Test: ALBUMIN; Value: 3.5; Range: 3.2-5.2; Units: GM/DL; Status: F Test: ALBUMIN/GLOBULIN RATIO; Value: 0.76; Range: 1.00-1.93; Abnormal: Below low normal; Status: F Lab Order: Urinalysis; SPEC'M 05/08/16 20:43 Test: APPEARANCE, URINE; Value: HAZY; Range: CLEAR; Status: F Test: COLOR, URINE; Value: YELLOW; Range: YELLOW; Status: F Test: PH,URINE; Value: 7.0; Range: 5.0-9.0; Units: UNITS; Status: F Test: SPECIFIC GRAVITY URINE AUTO; Value: 1.014; Range: 1.002-1.035; Status: F Test: PROTEIN, URINE AUTO; Value: NEGATIVE; Range: NEGATIVE; Units: mg/dL; Status: F Test: GLUCOSE, URINE (UA) AUTO; Value: 1+; Range: NEGATIVE; Abnormal: Above high normal; Units: mg/dL; Status: F Test: KETONE, URINE AUTO; Value: NEGATIVE; Range: NEGATIVE; Units: mg/dL; Status: F Test: UROBILINOGEN, URINE AUTO; Value: 0.2; Range: 0.0-2.0; Units: mg/dL; Status: F Test: BILIRUBIN, URINE AUTO; Value: NEGATIVE; Range: NEGATIVE; Status: F Test: NITRITE, URINE AUTO; Value: NEGATIVE; Range: NEGATIVE; Status: F Test: LEUKOCYTE ESTERASE, URINE AUTO; Value: NEGATIVE; Range: NEGATIVE; Status: F Test: BLOOD, URINE BLOOD; Value: NEGATIVE; Range: NEGATIVE; Status: F Test: WBC, URINE AUTO; Value: 3; Range: 0-3; Units: /HPF; Status: F Test: RBC, URINE AUTO; Value: 1; Range: 0-3; Units: /HPF; Status: F Test: BACTERIA, URINE AUTO; Value: NEGATIVE; Range: NEGATIVE; Status: F Test: SQUAMOUS EPITHELIAL CELL UR AU; Value: 0; Range: 0-6; Units: /HPF; Status: F Test: HYALINE CAST, URINE AUTO; Value: 0; Range: 0-1; Units: /LPF; Status: F Test: AMORPHOUS SEDIMENT; Value: SMALL; Range: NEGATIVE; Abnormal: Above high normal; Status: F Lab Order: Lactic Acid (Camejo tube on ice); SPEC'M 05/08/16 20:01 Test: LACTIC ACID LEVEL, LACTATE; Value: 1.5; Range: 0.4-2.0; Units: MMOL/L; Status: F Outcome: 21:58 Discharge ordered by Provider. le 22:05 Discharge Assessment: Patient awake, alert and oriented x 3. No cognitive and/or jmb functional deficits noted. Patient verbalized understanding of disposition instructions. Patient awake and alert. obeys commands, Oriented to person, place and time. Patient verbalized understanding of disposition instructions. Patient has no functional deficits. patient administered narcotics - no. The following High Risk Discharge criteria are identified: None. Discharged to home ambulatory. Condition: stable Condition: improved. Discharge instructions given to patient, Instructed on discharge instructions, follow up and referral plans. Demonstrated understanding of instructions, Pt was receptive of discharge instructions/ teaching. No special radiology studies were completed. Property sent home with patient. 22:08 Patient left the ED. b Signatures: Marino Echeverria Michael B, RN RN mlb1 Farhat Santiago Kristopher, LESLEY DIETITIAN RESEARCH kb5 Usha Stevens, GLOBAL CEO GLOBAL CEO Frances Head RN RN dsf Josephine Mckeon gr2 Jam Serrano RN RN jmb Belles, Michael,RN RN mb9 Chivo Lewis, DIETITIAN RESEARCH DIETITIAN RESEARCH mdr MTDD
--- NOTE | 2016-05-08 22:09 | EDDOCDS ---
Physician Documentation [facility] Name: Rich Olson Age: 55 yrs Sex: Female : 1960 Arrival Date: 05/08/2016 Time: 17:46 Bed I8 / 16 Private MD: Tutu Sanchez MD Disposition: 05/08 21:58 Critical Care: Critical care not applicable. le Disposition: 05/08/16 21:58 Discharged to Home/Self Care. Impression: Generalized abdominal pain - chronic. - Condition is Stable. - Discharge Instructions: Abdominal Pain, Adult. - Medication Reconciliation, Local Pharmacy Hours form. - Follow up: Silver Campuzano MD; When: Call to arrange an appointment; Reason: Recheck today's complaints, Continuance of care. - Problem is an acute exacerbation. - Symptoms have improved. - Notes: Return to the ED for any further concerns Historical: - Allergies: Albuterol (shaky); Aspirin (stomach irritation); Ativan (hallucination); Azithromycin (Hives); BACLOFEN (shakiness); Chlorpromazine (shakiness); Ciprofloxacin (Hives); Codeine Phosphate (anxious); Colchicine (anxious); Darvocet-N 100 (nervous); Droperidol (Dystonic reaction); Fentanyl (nervous); Fluphenazine; GABAPENTIN (Rash); Gabitril (nervous); hydrocodone (confusion); IODINEIODINE CONTAINING ("body our of control"); Ipratropium [place]; Latex (Anaphylaxis); Lidoderm (Rash); Lyrica (nervous); Macrobid (shaky); Meperidine (Sleepy); mesoridazine; Midazolam (shaky and jumpy); Morphine (severe RAMIREZ); Oxycodone HCl (Hives); PENICILLINS (Hives); perphenazine (nervous); Phenergan (nervous); Prochlorperazine Maleate; Promethazine (Dystonic reaction); QUINOLONES (shaky, itchy); Readi-Cat 2; Red Dye; SULFA (SULFONAMIDES) (Hives); Tape (Rash); Theophylline (Seizures); TIAGABINE; Toradol (itchy); Tramadol HCl (nervous); Trifluoperazine; Vicodin (shaky, nervous); - Home Meds: 1. albuterol sulfate 90 mcg/actuation Inhl aepb 2 puffs every 4 hours month ago 2. amitriptyline 50 mg Oral tab 1 tab once daily 1 tab in am , 3 tabs at bedtime 3. astelin 137mcg/spray twice a day 4. Benadryl 25 mg Oral cap 1 cap as needed 5. Carafate 1 gram Oral tab 1 tab 4 times per day 6. cetirizine 10 mg oral tab 1 tab once daily 7. Dilaudid 4 mg Oral tab 1 tab every 4 hours 8. gemfibrozil 600 mg Oral tab daily 9. Glucerna Oral liqd daily 10. heparin flush fro port 11. Levemir 30 units subcutaneous daily 12. Lomotil 2.5-0.025 mg oral tab as needed 13. magnesium oxide 400 mg Oral tab 400 mg three times a day 14. Nasacort AQ 55 mcg Nasal spra 1 spray once daily 15. Novolog 20 units Sub-Q daily 16. ranitidine HCl 150 mg Oral tbef 150 mg twice a day 17. Reglan 10 mg Oral tab 1 tab 30 mins before meals 18. Symbicort 160-4.5 mcg/actuation inhalation HFAA 2 puffs 2 times per day 19. tizanidine 2 mg oral tab 1 tabs BID PRN 20. Zofran IM 4 mg every 8 hours - PMHx: acute bronchitis; Asthma; chronic abdominal pain; chronic pain syndrome; Diabetes - IDDM: controlled; DVT; Fatty Liver, Non-alchoholic; GERD; Hernia; Hypercholesterolemia; hypokalemia; hypomagnesia; Kidney stones; necrotic bowel; UTI; - PSHx: Cholecystectomy; Lumpectomy- Left; Lumpectomy- Right; bilateral knee surgery; Appendectomy; Hysterectomy; Ileostomy Construction; av fistula left leg; tumors removed from right arm; - Social history: Smoking status: Patient states was never smoker of tobacco. No barriers to communication noted, The patient speaks fluent Telugu, Speaks appropriately for age. - Family history: Not pertinent. - : The pt / caregiver states he / she is not on anticoagulants. Home medication list is obtained from the patient. - Exposure Risk Screening:: None identified. PIN INSERTER: 22:08 LMP N/A - Irregular menses jmb Vital Signs: 17:48 BP 122 / 68; Pulse 90; Resp 18 S; Temp 98.4(O); Pulse Ox 94% on R/A; Weight 75.3 kg / gr2 166.01 lbs (R); Height 5 ft. 7 in. (170.18 cm) (R); Pain 7/10; 22:05 BP 126 / 70; Pulse 88; Resp 18; Temp 98.0(O); Pulse Ox 94% on R/A; Pain 0/10; jmb 17:48 Body Mass Index 26.00 (75.30 kg, 170.18 cm) gr2 MDM: 19:41 NS 0.9% 1000 ml IV at bolus once ordered. le 19:41 NS 0.9% 1000 ml IV at 100 mL/hr continuous ordered. le 19:41 Ondansetron 4 mg IVP once ordered. le 19:41 IV Saline Lock ordered. le 19:41 Undress patient appropriately for examination ordered. le 19:41 Dilaudid - HYDROmorphone 1 mg IVP once ordered. le 19:42 Basic Metabolic Profile Ordered. EDMS 19:42 CBC with Diff Ordered. EDMS 19:42 Lipase Ordered. EDMS 19:42 Liver Profile Ordered. EDMS 19:42 Urinalysis Ordered. EDMS 19:42 Lactic Acid (Camejo tube on ice) Ordered. EDMS 19:42 NOTHING BY MOUTH+DIET ordered. EDMS 20:02 Abdomen, Flat\\E\\Upright,PA Chest Ordered. EDMS 20:15 Financial registration complete. zo 20:27 [facility] [place] Payment Agreement was scanned into [employer] and attached to record. zo 21:06 Basic Metabolic Profile Reviewed. le 21:06 CBC with Diff Reviewed. le 21:06 Liver Profile Reviewed. le 21:06 Urinalysis Reviewed. le 21:06 Lipase Reviewed. le 21:06 Lactic Acid (Camejo tube on ice) Reviewed. le 21:13 Dilaudid - HYDROmorphone 1 mg IVP once ordered. le Administered Medications: 20:10 Drug: NS 0.9% 1000 ml [sodium chloride 0.9 % intravenous solution] Route: IV; Rate: jmb bolus; Site: Implantable Access Device; 20:10 Drug: Ondansetron 4 mg [ondansetron HCl 2 mg/mL intravenous solution (2 mL)] Route: jmb IVP; Site: Implantable Access Device; 20:11 Drug: Dilaudid - HYDROmorphone 1 mg [hydromorphone 1 mg/mL injection syringe (1 mL)] jmb Route: IVP; Site: Implantable Access Device; 21:25 Drug: Dilaudid - HYDROmorphone 1 mg [hydromorphone 1 mg/mL injection syringe (1 mL)] mb9 Route: IVP; Site: Implantable Access Device; 21:54 Drug: NS 0.9% 1000 ml [sodium chloride 0.9 % intravenous solution] Route: IV; Rate: 100 jmb mL/hr; Site: Implantable Access Device; Signatures: Dispatcher [employer] Vladislav Jaquez RN RN mlb1 Farhat Santiago Lisa, FNP FNP le Becker, Joshua, RN RN jmb Vladislav Fernandez RN mb9 The chart was reviewed and I authenticate all verbal orders and agree with the evaluation and treatment provided.Attachments: 20:27 [facility] [place] Payment Agreement zo MTDD
--- NOTE | 2016-05-08 23:56 | REP ---
Clinical: Abdominal pain. Comparison: 04/09/2016. Technique: Upright view of the chest with supine and upright views of the abdomen and pelvis. Findings: Lung bases suggests chronic opacities and superimposed atelectasis or small left pleural effusion cannot be excluded. Supine and upright views of the abdomen and pelvis demonstrate nonspecific bowel gas pattern. Skeletal structures appear intact. Postsurgical changes include epidural stimulator, Olayto-D-Rlah, overlying abdominal surgical larry, and left-sided ostomy. Impression: Chronic changes the lung bases and superimposed subtle atelectasis or small pleural effusion cannot be excluded. Nonspecific bowel gas pattern with postsurgical changes appreciated. Signed by Darius Roth MD 05/08/2016 11:49 P
--- NOTE | 2016-05-10 23:10 | EDDOCDS ---
Nurse's Notes [facility] Name: Rich Olson Age: 55 yrs Sex: Female : 1960 Arrival Date: 05/08/2016 Time: 17:46 Bed I8 / 16 Private MD: Tutu Sanchez MD Diagnosis: Generalized abdominal pain-chronic Presentation: 05/08 17:57 Presenting complaint: Patient states: Worsening abdominal pain since last night. Risk mlb1 factors: the patient reports no vaginal bleeding. Adult Sepsis Screening: The patient does not have new or worsening altered mentation. Patient's respiratory rate is less than 22. Systolic blood pressure is greater than 100. Patient has a qSOFA score of 0- Negative Sepsis Screen. Suicide/Homicide risk assessment- the patient denies having any suicidal and/or homicidal ideations and does not present with any other emotional, behavioral or mental health complaints. 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 Transition of care: patient was not received from another setting of care. 17:57 Acuity: THADDEUS Level 3 mlb1 17:57 Method Of Arrival: Walkin/Carried/Asstd mlb1 Triage Assessment: 18:01 General: Appears in no apparent distress, Behavior is appropriate for age, cooperative. mlb1 Pain: Location: abdomen Pain currently is 10 out of 10 on a pain scale. HIV screening NA for this visit Offered previously. 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 N/A - Irregular menses jmb Historical: - Allergies: Albuterol (shaky); Aspirin (stomach irritation); Ativan (hallucination); Azithromycin (Hives); BACLOFEN (shakiness); Chlorpromazine (shakiness); Ciprofloxacin (Hives); Codeine Phosphate (anxious); Colchicine (anxious); Darvocet-N 100 (nervous); Droperidol (Dystonic reaction); Fentanyl (nervous); Fluphenazine; GABAPENTIN (Rash); Gabitril (nervous); hydrocodone (confusion); IODINEIODINE CONTAINING ("body our of control"); Ipratropium [place]; Latex (Anaphylaxis); Lidoderm (Rash); Lyrica (nervous); Macrobid (shaky); Meperidine (Sleepy); mesoridazine; Midazolam (shaky and jumpy); Morphine (severe RAMIREZ); Oxycodone HCl (Hives); PENICILLINS (Hives); perphenazine (nervous); Phenergan (nervous); Prochlorperazine Maleate; Promethazine (Dystonic reaction); QUINOLONES (shaky, itchy); Readi-Cat 2; Red Dye; SULFA (SULFONAMIDES) (Hives); Tape (Rash); Theophylline (Seizures); TIAGABINE; Toradol (itchy); Tramadol HCl (nervous); Trifluoperazine; Vicodin (shaky, nervous); - Home Meds: 1. albuterol sulfate 90 mcg/actuation Inhl aepb 2 puffs every 4 hours month ago 2. amitriptyline 50 mg Oral tab 1 tab once daily 1 tab in am , 3 tabs at bedtime 3. astelin 137mcg/spray twice a day 4. Benadryl 25 mg Oral cap 1 cap as needed 5. Carafate 1 gram Oral tab 1 tab 4 times per day 6. cetirizine 10 mg oral tab 1 tab once daily 7. Dilaudid 4 mg Oral tab 1 tab every 4 hours 8. gemfibrozil 600 mg Oral tab daily 9. Glucerna Oral liqd daily 10. heparin flush fro port 11. Levemir 30 units subcutaneous daily 12. Lomotil 2.5-0.025 mg oral tab as needed 13. magnesium oxide 400 mg Oral tab 400 mg three times a day 14. Nasacort AQ 55 mcg Nasal spra 1 spray once daily 15. Novolog 20 units Sub-Q daily 16. ranitidine HCl 150 mg Oral tbef 150 mg twice a day 17. Reglan 10 mg Oral tab 1 tab 30 mins before meals 18. Symbicort 160-4.5 mcg/actuation inhalation HFAA 2 puffs 2 times per day 19. tizanidine 2 mg oral tab 1 tabs BID PRN 20. Zofran IM 4 mg every 8 hours - PMHx: acute bronchitis; Asthma; chronic abdominal pain; chronic pain syndrome; Diabetes - IDDM: controlled; DVT; Fatty Liver, Non-alchoholic; GERD; Hernia; Hypercholesterolemia; hypokalemia; hypomagnesia; Kidney stones; necrotic bowel; UTI; - PSHx: Cholecystectomy; Lumpectomy- Left; Lumpectomy- Right; bilateral knee surgery; Appendectomy; Hysterectomy; Ileostomy Construction; av fistula left leg; tumors removed from right arm; - Social history: Smoking status: Patient states was never smoker of tobacco. No barriers to communication noted, The patient speaks fluent Turkish, Speaks appropriately for age. - Family history: Not pertinent. - : The pt / caregiver states he / she is not on anticoagulants. Home medication list is obtained from the patient. - Exposure Risk Screening:: None identified. Screenin:11 Screening information is obtained from the patient. Fall risk: No risks identified. jmb Assistance ADL's: requires no assistance with activities of daily living. Abuse/DV Screen: The patient / caregiver reports he/she is: not in a situation that causes fear, pain or injury. Nutritional screening: No deficits noted. home support is adequate. 22:05 Advance Directives: Currently, there is no health care proxy. There is no active DNR jmb order. There is no living will. There is no Power of Vp Digital [employer]. Assessment: 20:11 General: Appears in no apparent distress, Behavior is appropriate for age, cooperative. jmb Pain: Location: abdomen Pain currently is 8 out of 10 on a pain scale. Neurological: Level of Consciousness is awake, alert, obeys commands, Oriented to person, place, time, Speech is normal, Facial symmetry appears normal, Facial symmetry: tongue is midline. Cardiovascular: Capillary refill < 3 seconds Heart tones present Pulses are all present. Rhythm is regular. Respiratory: Airway is patent Respiratory effort is even, unlabored, Respiratory pattern is regular, symmetrical, Breath sounds are clear bilaterally. GI: Abdomen is distended, Bowel sounds present X 4 quads. Abd is soft X 4 quads. Derm: Skin is pink, warm & dry. Musculoskeletal: Range of motion intact in all extremities. 20:46 General: Appears in no apparent distress, comfortable, Behavior is appropriate for age, jmb cooperative, patient LAYING ON STRETCHER WATCHING TELEVISION. no Voiced complaints at his time. . Neurological: Level of Consciousness is awake, alert, obeys commands, Oriented to person, place, time. Respiratory: Airway is patent Respiratory effort is even, unlabored, Respiratory pattern is regular, symmetrical. 21:54 General: Appears in no apparent distress, comfortable, Behavior is appropriate for age, jmb cooperative, Patient laying on stretcher watching television. NO voiced complaints at this time. . Neurological: Level of Consciousness is awake, alert, obeys commands, Oriented to person, place, time. Respiratory: Airway is patent Respiratory effort is even, unlabored, Respiratory pattern is regular, symmetrical. 22:05 General: Patient instructed on discharge instructions. Patient asked if there were any b questions regarding discharge, patient stated no. Access taken out. Patient signed discharge instructions. Patient discharged in stable condition. . Vital Signs: 17:48 BP 122 / 68; Pulse 90; Resp 18 S; Temp 98.4(O); Pulse Ox 94% on R/A; Weight 75.3 kg gr2 (R); Height 5 ft. 7 in. (170.18 cm) (R); Pain 7/10; 22:05 BP 126 / 70; Pulse 88; Resp 18; Temp 98.0(O); Pulse Ox 94% on R/A; Pain 0/10; jmb 17:48 Body Mass Index 26.00 (75.30 kg, 170.18 cm) gr2 Vitals: 17:48 Log In Time: May 08, 2016 at 17:48. gr2 ED Course: 17:48 Patient visited by Josephine Mckeon. gr2 17:48 Tutu Sanchez is Private Physician. gr2 17:48 Patient moved to Waiting gr2 17:49 Patient visited by Josephine Mckeon. gr2 17:50 Patient moved to Pre RCE gr2 17:57 Patient visited by Vladislav Buckley, RN. mlb1 17:58 Triage Initiated mlb1 18:02 Patient visited by Vladislav Buckley, RN. mlb1 19:33 Patient moved to I8 / 16 mdr 19:34 [facility] le 19:42 Patient visited by Usha Stevens FNP. le 19:42 Patient visited by Usha Stevens FNP. le 20:03 Lactic Acid (Camejo tube on ice) Sent. dsf 20:04 Basic Metabolic Profile Sent. dsf 20:04 CBC with Diff Sent. dsf 20:04 Lipase Sent. dsf 20:04 Liver Profile Sent. dsf 20:11 The patient / caregiver is instructed regarding the plan of care and ED course. jmb 20:11 Accessed using accessed w/ # 20 Serrano needle, sterile technique, per hospital protocol. jmb InfusaPort in patient's anterior aspect of right upper chest. Clean & dry. Good blood return. Flushes easily. Labs drawn. (by ED staff). Sent per order to lab. 20:13 Patient visited by Jam Serrano,CORIE. nancy 20:27 [facility] Payment Agreement was scanned into [employer] and attached to record. zo 20:35 Patient moved to Radiology hugo 20:35 Patient moved to I8 / 16 hugo 20:46 Urinalysis Sent. jmlorraine 20:47 Patient visited by Jam Serrano,CORIE. nancy 21:23 Patient visited by Byron Dockery PCA. kb5 21:55 Patient visited by Jam Serrano RN. nancy 21:57 Silver Campuzano MD is Referral Physician. martin 22:05 Discontinued No redness/swelling at site. No procedures done that require assistance. nancy 05/09 00:18 Abdomen, Flat\\E\\Upright,PA Chest Returned. EDMS 11:28 T-Sheet-- Draft Copy was scanned into [employer] and attached to record. gb Administered Medications: 05/08 20:10 Drug: NS 0.9% 1000 ml [sodium chloride 0.9 % intravenous solution] Route: IV; Rate: jmb bolus; Site: Implantable Access Device; 20:10 Drug: Ondansetron 4 mg [ondansetron HCl 2 mg/mL intravenous solution (2 mL)] Route: jmb IVP; Site: Implantable Access Device; 20:11 Drug: Dilaudid - HYDROmorphone 1 mg [hydromorphone 1 mg/mL injection syringe (1 mL)] jmb Route: IVP; Site: Implantable Access Device; 21:25 Drug: Dilaudid - HYDROmorphone 1 mg [hydromorphone 1 mg/mL injection syringe (1 mL)] mb9 Route: IVP; Site: Implantable Access Device; 21:54 Drug: NS 0.9% 1000 ml [sodium chloride 0.9 % intravenous solution] Route: IV; Rate: 100 jmb mL/hr; Site: Implantable Access Device; Order Results: Lab Order: Basic Metabolic Profile; SPEC'M 05/08/16 20:01 Test: GLUCOSE, FASTING; Value: 227; Range: 70-105; Abnormal: Above high normal; Units: MG/DL; Status: F Test: BLOOD UREA NITROGEN; Value: 14; Range: 7-18; Units: MG/DL; Status: F Test: CREATININE FOR GFR; Value: 0.62; Range: 0.55-1.02; Units: MG/DL; Status: F Test: GLOMERULAR FILTRATION RATE; Value: > 60.0; Range: >51; Status: F Test: SODIUM LEVEL; Value: 139; Range: 136-145; Units: MEQ/L; Status: F Test: POTASSIUM SERUM; Value: 4.0; Range: 3.5-5.1; Units: MEQ/L; Status: F Test: CHLORIDE LEVEL; Value: 100; Range: 98-107; Units: MEQ/L; Status: F Test: CARBON DIOXIDE LEVEL; Value: 32; Range: 21-32; Units: MEQ/L; Status: F Test: ANION GAP; Value: 7; Range: 8-16; Abnormal: Below low normal; Units: MEQ/L; Status: F Test: CALCIUM LEVEL; Value: 10.4; Range: 8.5-10.1; Abnormal: Above high normal; Units: MG/DL; Status: F Test Note: ; Units are mL/min/1.73 m2 Chronic Kidney Disease Staging per NKF: Stage I & II GFR >=60 Normal to Mildly Decreased Stage III GFR 30-59 Moderately Decreased Stage IV GFR 15-29 Severely Decreased Stage V GFR <15 Very Little GFR Left ESRD GFR <15 on ACCOUNTING BOOKKEEPER Lab Order: CBC with Diff; SPEC'M 05/08/16 20:01 Test: WHITE BLOOD COUNT; Value: 5.4; Range: 4.0-10.0; Units: K/mm3; Status: F Test: RED BLOOD COUNT; Value: 3.70; Range: 4.00-5.40; Abnormal: Below low normal; Units: M/mm3; Status: F Test: HEMOGLOBIN; Value: 11.6; Range: 12.0-16.0; Abnormal: Below low normal; Units: g/dl; Status: F Test: HEMATOCRIT; Value: 34.8; Range: 36.0-47.0; Abnormal: Below low normal; Units: %; Status: F Test: MEAN CORPUSCULAR VOLUME; Value: 94.0; Range: 80.0-96.0; Units: fl; Status: F Test: MEAN CORPUSCULAR HEMOGLOBIN; Value: 31.3; Range: 27.0-33.0; Units: pg; Status: F Test: MEAN CORPUSCULAR HGB CONC; Value: 33.3; Range: 32.0-36.5; Units: g/dl; Status: F Test: RED CELL DISTRIBUTION WIDTH; Value: 14.0; Range: 11.5-14.5; Units: %; Status: F Test: PLATELET COUNT, AUTOMATED; Value: 294; Range: 150-450; Units: k/mm3; Status: F Test: NEUTROPHILS %; Value: 57.6; Range: 36.0-66.0; Units: %; Status: F Test: LYMPH %; Value: 31.8; Range: 24.0-44.0; Units: %; Status: F Test: MONO %; Value: 5.5; Range: 0.0-5.0; Abnormal: Above high normal; Units: %; Status: F Test: EOS %; Value: 2.2; Range: 0.0-3.0; Units: %; Status: F Test: BASO %; Value: 0.5; Range: 0.0-1.0; Units: %; Status: F Test: LARGE UNSTAINED CELL %; Value: 2.4; Range: 0.0-4.0; Units: %; Status: F Test: NEUTROPHILS #; Value: 3.1; Range: 1.8-7.7; Units: K/mm3; Status: F Test: LYMPH #; Value: 1.7; Range: 1.5-4.5; Units: K/mm3; Status: F Test: MONO #; Value: 0.3; Range: 0.0-0.8; Units: K/mm3; Status: F Test: EOS #; Value: 0.1; Range: 0.0-0.50; Units: K/mm3; Status: F Test: BASO #; Value: 0.0; Range: 0.0-0.2; Units: K/mm3; Status: F Test: LARGE UNSTAINED CELL #; Value: 0.1; Range: 0.0-0.4; Units: K/mm3; Status: F Lab Order: Lipase; SPEC'M 05/08/16 20:01 Test: LIPASE; Value: 126; Range: 73-393; Units: U/L; Status: F Lab Order: Liver Profile; [facility] 05/08/16 20:01 Test: AST/SGOT; Value: 14; Range: 15-37; Abnormal: Below low normal; Units: U/L; Status: F Test: ALT/SGPT; Value: 26; Range: 12-78; Units: U/L; Status: F Test: ALKALINE PHOSPHATASE; Value: 132; Range: 45-117; Abnormal: Above high normal; Units: U/L; Status: F Test: BILIRUBIN,TOTAL; Value: 0.2; Range: 0.2-1.0; Units: MG/DL; Status: F Test: BILIRUBIN,DIRECT; Value: < 0.1; Range: 0.0-0.2; Units: MG/DL; Status: F Test: TOTAL PROTEIN; Value: 8.1; Range: 6.4-8.2; Units: GM/DL; Status: F Test: ALBUMIN; Value: 3.5; Range: 3.2-5.2; Units: GM/DL; Status: F Test: ALBUMIN/GLOBULIN RATIO; Value: 0.76; Range: 1.00-1.93; Abnormal: Below low normal; Status: F Lab Order: Urinalysis; [facility] 05/08/16 20:43 Test: APPEARANCE, URINE; Value: HAZY; Range: CLEAR; Status: F Test: COLOR, URINE; Value: YELLOW; Range: YELLOW; Status: F Test: PH,URINE; Value: 7.0; Range: 5.0-9.0; Units: UNITS; Status: F Test: SPECIFIC GRAVITY URINE AUTO; Value: 1.014; Range: 1.002-1.035; Status: F Test: PROTEIN, URINE AUTO; Value: NEGATIVE; Range: NEGATIVE; Units: mg/dL; Status: F Test: GLUCOSE, URINE (UA) AUTO; Value: 1+; Range: NEGATIVE; Abnormal: Above high normal; Units: mg/dL; Status: F Test: KETONE, URINE AUTO; Value: NEGATIVE; Range: NEGATIVE; Units: mg/dL; Status: F Test: UROBILINOGEN, URINE AUTO; Value: 0.2; Range: 0.0-2.0; Units: mg/dL; Status: F Test: BILIRUBIN, URINE AUTO; Value: NEGATIVE; Range: NEGATIVE; Status: F Test: NITRITE, URINE AUTO; Value: NEGATIVE; Range: NEGATIVE; Status: F Test: LEUKOCYTE ESTERASE, URINE AUTO; Value: NEGATIVE; Range: NEGATIVE; Status: F Test: BLOOD, URINE BLOOD; Value: NEGATIVE; Range: NEGATIVE; Status: F Test: WBC, URINE AUTO; Value: 3; Range: 0-3; Units: /HPF; Status: F Test: RBC, URINE AUTO; Value: 1; Range: 0-3; Units: /HPF; Status: F Test: BACTERIA, URINE AUTO; Value: NEGATIVE; Range: NEGATIVE; Status: F Test: SQUAMOUS EPITHELIAL CELL UR AU; Value: 0; Range: 0-6; Units: /HPF; Status: F Test: HYALINE CAST, URINE AUTO; Value: 0; Range: 0-1; Units: /LPF; Status: F Test: AMORPHOUS SEDIMENT; Value: SMALL; Range: NEGATIVE; Abnormal: Above high normal; Status: F Lab Order: Lactic Acid (Camejo tube on ice); SPEC'M 05/08/16 20:01 Test: LACTIC ACID LEVEL, LACTATE; Value: 1.5; Range: 0.4-2.0; Units: MMOL/L; Status: F Radiology Order: Abdomen, Flat\\E\\Upright,PA Chest Test: Abdomen, Flat\\E\\Upright,PA Chest REASON FOR EXAMINATION: Abdomen Pain; Clinical: Abdominal pain.; ; Comparison: 04/09/2016.; ; Technique: Upright view of the chest with supine and upright views of the; abdomen and pelvis.; ; Findings:; Lung bases suggests chronic opacities and superimposed atelectasis or small left; pleural effusion cannot be excluded. Supine and upright views of the abdomen and; pelvis demonstrate nonspecific bowel gas pattern. Skeletal structures appear; intact. Postsurgical changes include epidural stimulator, [id number],; overlying abdominal surgical larry, and left-sided ostomy.; ; Impression:; Chronic changes the lung bases and superimposed subtle atelectasis or small; pleural effusion cannot be excluded.; Nonspecific bowel gas pattern with postsurgical changes appreciated.; ; ; Signed by; Darius Roth MD 05/08/2016 11:49 P; Outcome: 21:58 Discharge ordered by Provider. le 22:05 Discharge Assessment: Patient awake, alert and oriented x 3. No cognitive and/or jmb functional deficits noted. Patient verbalized understanding of disposition instructions. Patient awake and alert. obeys commands, Oriented to person, place and time. Patient verbalized understanding of disposition instructions. Patient has no functional deficits. patient administered narcotics - no. The following High Risk Discharge criteria are identified: None. Discharged to home ambulatory. Condition: stable Condition: improved. Discharge instructions given to patient, Instructed on discharge instructions, follow up and referral plans. Demonstrated understanding of instructions, Pt was receptive of discharge instructions/ teaching. No special radiology studies were completed. Property sent home with patient. 22:08 Patient left the ED. nancy Signatures: Dispatcher [employer] EDMS Marino Echeverria Gloria, Reg Reg Vladislav Amor, RN RN mlb1 Farhat Santiago Kristopher, DEPOSIT REFUND CLERK DEPOSIT REFUND CLERK kb5 Usha Stevens, MOTOR COACH BUS DRIVER MOTOR COACH BUS DRIVER Frances Head,RN RN dsf Josephine Mckeon gr2 Jam Serrano RN RN Vladislav Rodriguez,RN RN mb9 Chivo Lewis, DEPOSIT REFUND CLERK DEPOSIT REFUND CLERK mdr Chart Complete MTDD
--- NOTE | 2016-05-10 23:10 | EDDOCDS ---
Physician Documentation [facility] Name: Rich Olson Age: 55 yrs Sex: Female : 1960 Arrival Date: 05/08/2016 Time: 17:46 Bed I8 / 16 Private MD: Tutu Sanchez MD Disposition: 05/08 21:58 Critical Care: Critical care not applicable. le Disposition: 05/08/16 21:58 Discharged to Home/Self Care. Impression: Generalized abdominal pain - chronic. - Condition is Stable. - Discharge Instructions: Abdominal Pain, Adult. - Medication Reconciliation, Local Pharmacy Hours form. - Follow up: Silver Campuzano MD; When: Call to arrange an appointment; Reason: Recheck today's complaints, Continuance of care. - Problem is an acute exacerbation. - Symptoms have improved. - Notes: Return to the ED for any further concerns Historical: - Allergies: Albuterol (shaky); Aspirin (stomach irritation); Ativan (hallucination); Azithromycin (Hives); BACLOFEN (shakiness); Chlorpromazine (shakiness); Ciprofloxacin (Hives); Codeine Phosphate (anxious); Colchicine (anxious); Darvocet-N 100 (nervous); Droperidol (Dystonic reaction); Fentanyl (nervous); Fluphenazine; GABAPENTIN (Rash); Gabitril (nervous); hydrocodone (confusion); IODINEIODINE CONTAINING ("body our of control"); Ipratropium [place]; Latex (Anaphylaxis); Lidoderm (Rash); Lyrica (nervous); Macrobid (shaky); Meperidine (Sleepy); mesoridazine; Midazolam (shaky and jumpy); Morphine (severe RAMIREZ); Oxycodone HCl (Hives); PENICILLINS (Hives); perphenazine (nervous); Phenergan (nervous); Prochlorperazine Maleate; Promethazine (Dystonic reaction); QUINOLONES (shaky, itchy); Readi-Cat 2; Red Dye; SULFA (SULFONAMIDES) (Hives); Tape (Rash); Theophylline (Seizures); TIAGABINE; Toradol (itchy); Tramadol HCl (nervous); Trifluoperazine; Vicodin (shaky, nervous); - Home Meds: 1. albuterol sulfate 90 mcg/actuation Inhl aepb 2 puffs every 4 hours month ago 2. amitriptyline 50 mg Oral tab 1 tab once daily 1 tab in am , 3 tabs at bedtime 3. astelin 137mcg/spray twice a day 4. Benadryl 25 mg Oral cap 1 cap as needed 5. Carafate 1 gram Oral tab 1 tab 4 times per day 6. cetirizine 10 mg oral tab 1 tab once daily 7. Dilaudid 4 mg Oral tab 1 tab every 4 hours 8. gemfibrozil 600 mg Oral tab daily 9. Glucerna Oral liqd daily 10. heparin flush fro port 11. Levemir 30 units subcutaneous daily 12. Lomotil 2.5-0.025 mg oral tab as needed 13. magnesium oxide 400 mg Oral tab 400 mg three times a day 14. Nasacort AQ 55 mcg Nasal spra 1 spray once daily 15. Novolog 20 units Sub-Q daily 16. ranitidine HCl 150 mg Oral tbef 150 mg twice a day 17. Reglan 10 mg Oral tab 1 tab 30 mins before meals 18. Symbicort 160-4.5 mcg/actuation inhalation HFAA 2 puffs 2 times per day 19. tizanidine 2 mg oral tab 1 tabs BID PRN 20. Zofran IM 4 mg every 8 hours - PMHx: acute bronchitis; Asthma; chronic abdominal pain; chronic pain syndrome; Diabetes - IDDM: controlled; DVT; Fatty Liver, Non-alchoholic; GERD; Hernia; Hypercholesterolemia; hypokalemia; hypomagnesia; Kidney stones; necrotic bowel; UTI; - PSHx: Cholecystectomy; Lumpectomy- Left; Lumpectomy- Right; bilateral knee surgery; Appendectomy; Hysterectomy; Ileostomy Construction; av fistula left leg; tumors removed from right arm; - Social history: Smoking status: Patient states was never smoker of tobacco. No barriers to communication noted, The patient speaks fluent Czech, Speaks appropriately for age. - Family history: Not pertinent. - : The pt / caregiver states he / she is not on anticoagulants. Home medication list is obtained from the patient. - Exposure Risk Screening:: None identified. 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 7 in. (170.18 cm) (R); Pain 7/10; 22:05 BP 126 / 70; Pulse 88; Resp 18; Temp 98.0(O); Pulse Ox 94% on R/A; Pain 0/10; jmb 17:48 Body Mass Index 26.00 (75.30 kg, 170.18 cm) gr2 MDM: 19:41 NS 0.9% 1000 ml IV at bolus once ordered. le 19:41 NS 0.9% 1000 ml IV at 100 mL/hr continuous ordered. le 19:41 Ondansetron 4 mg IVP once ordered. le 19:41 IV Saline Lock ordered. le 19:41 Undress patient appropriately for examination ordered. le 19:41 Dilaudid - HYDROmorphone 1 mg IVP once ordered. le 19:42 Basic Metabolic Profile Ordered. EDMS 19:42 CBC with Diff Ordered. EDMS 19:42 Lipase Ordered. EDMS 19:42 Liver Profile Ordered. EDMS 19:42 Urinalysis Ordered. EDMS 19:42 Lactic Acid (Camejo tube on ice) Ordered. EDMS 19:42 NOTHING BY MOUTH+DIET ordered. EDMS 20:02 Abdomen, Flat\\E\\Upright,PA Chest Ordered. EDMS 20:15 Financial registration complete. zo 20:27 [facility] Payment Agreement was scanned into [employer] and attached to record. zo 21:06 Basic Metabolic Profile Reviewed. le 21:06 CBC with Diff Reviewed. le 21:06 Liver Profile Reviewed. le 21:06 Urinalysis Reviewed. le 21:06 Lipase Reviewed. le 21:06 Lactic Acid (Camejo tube on ice) Reviewed. le 21:13 Dilaudid - HYDROmorphone 1 mg IVP once ordered. le 05/09 11:28 T-Sheet-- Draft Copy was scanned into [employer] and attached to record. gb Administered Medications: 05/08 20:10 Drug: NS 0.9% 1000 ml [sodium chloride 0.9 % intravenous solution] Route: IV; Rate: jmb bolus; Site: Implantable Access Device; 20:10 Drug: Ondansetron 4 mg [ondansetron HCl 2 mg/mL intravenous solution (2 mL)] Route: jmb IVP; Site: Implantable Access Device; 20:11 Drug: Dilaudid - HYDROmorphone 1 mg [hydromorphone 1 mg/mL injection syringe (1 mL)] jmb Route: IVP; Site: Implantable Access Device; 21:25 Drug: Dilaudid - HYDROmorphone 1 mg [hydromorphone 1 mg/mL injection syringe (1 mL)] mb9 Route: IVP; Site: Implantable Access Device; 21:54 Drug: NS 0.9% 1000 ml [sodium chloride 0.9 % intravenous solution] Route: IV; Rate: 100 jmb mL/hr; Site: Implantable Access Device; Signatures: Dispatcher [employer] EDDivya Naidu, Reg Reg gb Vladislav Buckley RN RN mlb1 Farhat Santiago Lisa, HEAT TREAT INSPECTOR Jam Carrington RN RN jmb Vladislav Fernandez RN mb9 The chart was reviewed and I authenticate all verbal orders and agree with the evaluation and treatment provided.Attachments: 20:27 [facility] Payment Agreement zo 05/09 11:28 T-Sheet-- Draft Copy gb Chart Complete MTDD
--- NOTE | 2016-05-10 23:10 | EDDOCDS ---
Physician Documentation [facility] Name: Rich Olson Age: 55 yrs Sex: Female : 1960 Arrival Date: 05/08/2016 Time: 17:46 Bed I8 / 16 Private MD: Tutu Sanchez MD Disposition: 05/08 21:58 Critical Care: Critical care not applicable. le Disposition: 05/08/16 21:58 Discharged to Home/Self Care. Impression: Generalized abdominal pain - chronic. - Condition is Stable. - Discharge Instructions: Abdominal Pain, Adult. - Medication Reconciliation, Local Pharmacy Hours form. - Follow up: Silver Campuzano MD; When: Call to arrange an appointment; Reason: Recheck today's complaints, Continuance of care. - Problem is an acute exacerbation. - Symptoms have improved. - Notes: Return to the ED for any further concerns Historical: - Allergies: Albuterol (shaky); Aspirin (stomach irritation); Ativan (hallucination); Azithromycin (Hives); BACLOFEN (shakiness); Chlorpromazine (shakiness); Ciprofloxacin (Hives); Codeine Phosphate (anxious); Colchicine (anxious); Darvocet-N 100 (nervous); Droperidol (Dystonic reaction); Fentanyl (nervous); Fluphenazine; GABAPENTIN (Rash); Gabitril (nervous); hydrocodone (confusion); IODINEIODINE CONTAINING ("body our of control"); Ipratropium [place]; Latex (Anaphylaxis); Lidoderm (Rash); Lyrica (nervous); Macrobid (shaky); Meperidine (Sleepy); mesoridazine; Midazolam (shaky and jumpy); Morphine (severe RAMIREZ); Oxycodone HCl (Hives); PENICILLINS (Hives); perphenazine (nervous); Phenergan (nervous); Prochlorperazine Maleate; Promethazine (Dystonic reaction); QUINOLONES (shaky, itchy); Readi-Cat 2; Red Dye; SULFA (SULFONAMIDES) (Hives); Tape (Rash); Theophylline (Seizures); TIAGABINE; Toradol (itchy); Tramadol HCl (nervous); Trifluoperazine; Vicodin (shaky, nervous); - Home Meds: 1. albuterol sulfate 90 mcg/actuation Inhl aepb 2 puffs every 4 hours month ago 2. amitriptyline 50 mg Oral tab 1 tab once daily 1 tab in am , 3 tabs at bedtime 3. astelin 137mcg/spray twice a day 4. Benadryl 25 mg Oral cap 1 cap as needed 5. Carafate 1 gram Oral tab 1 tab 4 times per day 6. cetirizine 10 mg oral tab 1 tab once daily 7. Dilaudid 4 mg Oral tab 1 tab every 4 hours 8. gemfibrozil 600 mg Oral tab daily 9. Glucerna Oral liqd daily 10. heparin flush fro port 11. Levemir 30 units subcutaneous daily 12. Lomotil 2.5-0.025 mg oral tab as needed 13. magnesium oxide 400 mg Oral tab 400 mg three times a day 14. Nasacort AQ 55 mcg Nasal spra 1 spray once daily 15. Novolog 20 units Sub-Q daily 16. ranitidine HCl 150 mg Oral tbef 150 mg twice a day 17. Reglan 10 mg Oral tab 1 tab 30 mins before meals 18. Symbicort 160-4.5 mcg/actuation inhalation HFAA 2 puffs 2 times per day 19. tizanidine 2 mg oral tab 1 tabs BID PRN 20. Zofran IM 4 mg every 8 hours - PMHx: acute bronchitis; Asthma; chronic abdominal pain; chronic pain syndrome; Diabetes - IDDM: controlled; DVT; Fatty Liver, Non-alchoholic; GERD; Hernia; Hypercholesterolemia; hypokalemia; hypomagnesia; Kidney stones; necrotic bowel; UTI; - PSHx: Cholecystectomy; Lumpectomy- Left; Lumpectomy- Right; bilateral knee surgery; Appendectomy; Hysterectomy; Ileostomy Construction; av fistula left leg; tumors removed from right arm; - Social history: Smoking status: Patient states was never smoker of tobacco. No barriers to communication noted, The patient speaks fluent Korean, Speaks appropriately for age. - Family history: Not pertinent. - : The pt / caregiver states he / she is not on anticoagulants. Home medication list is obtained from the patient. - Exposure Risk Screening:: None identified. 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 7 in. (170.18 cm) (R); Pain 7/10; 22:05 BP 126 / 70; Pulse 88; Resp 18; Temp 98.0(O); Pulse Ox 94% on R/A; Pain 0/10; jmb 17:48 Body Mass Index 26.00 (75.30 kg, 170.18 cm) gr2 MDM: 19:41 NS 0.9% 1000 ml IV at bolus once ordered. le 19:41 NS 0.9% 1000 ml IV at 100 mL/hr continuous ordered. le 19:41 Ondansetron 4 mg IVP once ordered. le 19:41 IV Saline Lock ordered. le 19:41 Undress patient appropriately for examination ordered. le 19:41 Dilaudid - HYDROmorphone 1 mg IVP once ordered. le 19:42 Basic Metabolic Profile Ordered. EDMS 19:42 CBC with Diff Ordered. EDMS 19:42 Lipase Ordered. EDMS 19:42 Liver Profile Ordered. EDMS 19:42 Urinalysis Ordered. EDMS 19:42 Lactic Acid (Camejo tube on ice) Ordered. EDMS 19:42 NOTHING BY MOUTH+DIET ordered. EDMS 20:02 Abdomen, Flat\\E\\Upright,PA Chest Ordered. EDMS 20:15 Financial registration complete. zo 20:27 [facility] [place] [facility] Payment Agreement was scanned into [employer] and attached to record. zo 21:06 Basic Metabolic Profile Reviewed. le 21:06 CBC with Diff Reviewed. le 21:06 Liver Profile Reviewed. le 21:06 Urinalysis Reviewed. le 21:06 Lipase Reviewed. le 21:06 Lactic Acid (Camejo tube on ice) Reviewed. le 21:13 Dilaudid - HYDROmorphone 1 mg IVP once ordered. le 05/09 11:28 T-Sheet-- Draft Copy was scanned into [employer] and attached to record. gb Administered Medications: 05/08 20:10 Drug: NS 0.9% 1000 ml [sodium chloride 0.9 % intravenous solution] Route: IV; Rate: jmb bolus; Site: Implantable Access Device; 20:10 Drug: Ondansetron 4 mg [ondansetron HCl 2 mg/mL intravenous solution (2 mL)] Route: jmb IVP; Site: Implantable Access Device; 20:11 Drug: Dilaudid - HYDROmorphone 1 mg [hydromorphone 1 mg/mL injection syringe (1 mL)] jmb Route: IVP; Site: Implantable Access Device; 21:25 Drug: Dilaudid - HYDROmorphone 1 mg [hydromorphone 1 mg/mL injection syringe (1 mL)] mb9 Route: IVP; Site: Implantable Access Device; 21:54 Drug: NS 0.9% 1000 ml [sodium chloride 0.9 % intravenous solution] Route: IV; Rate: 100 jmb mL/hr; Site: Implantable Access Device; Signatures: Dispatcher [employer] EDDivya Naidu, Reg Reg gb Vladislav Buckley RN RN mlb1 Farhat Santiago Lisa, TRAFFIC ADMINISTRATOR Jam Carrington RN RN jmb Vladislav Fernandez RN mb9 The chart was reviewed and I authenticate all verbal orders and agree with the evaluation and treatment provided.Attachments: 20:27 [facility] Payment Agreement zo 05/09 11:28 T-Sheet-- Draft Copy gb Chart Complete MTDD
== END 2016-05-08 22:08 | disposition home or self-care (01) ==
LOC: M ED 17:46
DX: R10.9 Unspecified abdominal pain (principal); E11.9 Type 2 diabetes mellitus without complications; J45.909 Unspecified asthma, uncomplicated; E87.5 Hyperkalemia; K21.9 Gastro-esophageal reflux disease without esophagitis; E83.42 Hypomagnesemia; E87.6 Hypokalemia; E78.00 Pure hypercholesterolemia, unspecified; K76.0 Fatty (change of) liver, not elsewhere classified; G89.4 Chronic pain syndrome; K46.9 Unspecified abdominal hernia without obstruction or gangrene; K55.9 Vascular disorder of intestine, unspecified; Z87.442 Personal history of urinary calculi; Z86.19 Personal history of other infectious and parasitic diseases; Z87.440 Personal history of urinary (tract) infections; Z87.09 Personal history of other diseases of the respiratory system; Z79.899 Other long term (current) drug therapy; Z79.4 Long term (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; Z88.0 Allergy status to penicillin; Z88.1 Allergy status to other antibiotic agents; Z88.2 Allergy status to sulfonamides; Z88.5 Allergy status to narcotic agent; Z88.8 Allergy status to other drugs, medicaments and biological substances; Z91.040 Latex allergy status; Z91.041 Radiographic dye allergy status; Z91.048 Other nonmedicinal substance allergy status
CPT/HCPCS: 36415; 74022; 80048; 80076; 81001; 83605; 83690; 85025; 96374; 96375; 96376; 99284; J1170; J2405

== ENCOUNTER 2016-05-10 06:41 | Outpatient (CLI) | payer OTHER ==
[~2016-05-10] VITALS: Ht 170.2 cm; Wt 77.1 kg
[~2016-05-10 06:41] MED LIST changes: +MAGNESIUM SULFATE 1 GM/100 ML D5W BAG (10MG/ML) (J3475) IV SCH; +ONDANSETRON 4MG/2ML VIAL (J2405) IV ONE; +SODIUM CHLORIDE 0.9% INJ 10 ML SYR IV SCH
== END 2016-05-10 11:30 | disposition home or self-care (01) ==
LOC: M INFU 06:41
PROVIDERS: ATTEND Family Medicine
DX: E83.42 Hypomagnesemia (principal); Z79.899 Other long term (current) drug therapy; Z79.4 Long term (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; Z88.1 Allergy status to other antibiotic agents; Z88.8 Allergy status to other drugs, medicaments and biological substances; Z88.5 Allergy status to narcotic agent; Z91.02 Food additives allergy status; Z91.018 Allergy to other foods; Z91.048 Other nonmedicinal substance allergy status; Z88.0 Allergy status to penicillin
CPT/HCPCS: 96365; 96366; J2405; J3475

== ENCOUNTER 2016-05-13 14:40 | Emergency (ER) | payer OTHER ==
[2016-05-13] MEDS ORDERED: HYDROmorphone HCL 1 MG/ML SYRINGE (J1170) As Ordered ONE (16:06)
--- NOTE | 2016-05-13 16:37 | EDDOCDS ---
Nurse's Notes [facility] Name: Rich Olson Age: 55 yrs Sex: Female : 1960 Arrival Date: 05/13/2016 Time: 14:40 Bed PR Private MD: Tutu Sanchez Diagnosis: Lower abdominal pain, unspecified-Chronic Presentation: 05/13 14:42 Presenting complaint: Patient states: Pt presents with c/o abdominal pain pt states her dls hernia is pushing on her intestines no appointment with surgeon for two weeks has been getting toradol from PMD was seen at pain clinic today but they cannot treat abdominal pain. Mother requesting Dilaudid injection. Risk factors: the patient reports no vaginal bleeding. Adult Sepsis Screening: The patient does not have new or worsening altered mentation. Patient's respiratory rate is less than 22. Systolic blood pressure is greater than 100. Patient has a qSOFA score of 0- Negative Sepsis Screen. Suicide/Homicide risk assessment- the patient denies having any suicidal and/or homicidal ideations and does not present with any other emotional, behavioral or mental health complaints. Status: Patient is not a health services information specialist or dependent. Transition of care: patient was not received from another setting of care. 14:42 Acuity: THADDEUS Level 4 dls 14:42 Method Of Arrival: Wheelchair dls Triage Assessment: 14:50 General: Appears uncomfortable, well developed, Behavior is cooperative. Pain: Pain dls currently is 10 out of 10 on a pain scale. HIV screening NA for this visit Offered previously. GI: Reports lower abdominal pain. 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 - Hysterectomy dls Historical: - Allergies: Albuterol (shaky); Aspirin (stomach irritation); Ativan (hallucination); Azithromycin (Hives); BACLOFEN (shakiness); Chlorpromazine (shakiness); Ciprofloxacin (Hives); Codeine Phosphate (anxious); Colchicine (anxious); Darvocet-N 100 (nervous); Droperidol (Dystonic reaction); Fentanyl (nervous); Fluphenazine; GABAPENTIN (Rash); Gabitril (nervous); hydrocodone (confusion); IODINEIODINE CONTAINING ("body our of control"); Ipratropium [place]; Latex (Anaphylaxis); Lidoderm (Rash); Lyrica (nervous); Macrobid (shaky); Meperidine (Sleepy); mesoridazine; Midazolam (shaky and jumpy); Morphine (severe RAMIREZ); Oxycodone HCl (Hives); PENICILLINS (Hives); perphenazine (nervous); Phenergan (nervous); Prochlorperazine Maleate; Promethazine (Dystonic reaction); QUINOLONES (shaky, itchy); Readi-Cat 2; Red Dye; SULFA (SULFONAMIDES) (Hives); Tape (Rash); Theophylline (Seizures); TIAGABINE; Toradol (itchy); Tramadol HCl (nervous); Trifluoperazine; Vicodin (shaky, nervous); - Home Meds: 1. albuterol sulfate 90 mcg/actuation Inhl aepb 2 puffs every 4 hours month ago 2. amitriptyline 50 mg Oral tab 1 tab once daily 1 tab in am , 3 tabs at bedtime 3. astelin 137mcg/spray twice a day 4. Benadryl 25 mg Oral cap 1 cap as needed 5. Carafate 1 gram Oral tab 1 tab 4 times per day 6. cetirizine 10 mg oral tab 1 tab once daily 7. Dilaudid 4 mg Oral tab 1 tab every 4 hours 8. gemfibrozil 600 mg Oral tab daily 9. Glucerna Oral liqd daily 10. heparin flush fro port 11. Levemir 30 units subcutaneous daily 12. Lomotil 2.5-0.025 mg oral tab as needed 13. magnesium oxide 400 mg Oral tab 400 mg three times a day 14. Nasacort AQ 55 mcg Nasal spra 1 spray once daily 15. Novolog 20 units Sub-Q daily 16. ranitidine HCl 150 mg Oral tbef 150 mg twice a day 17. Reglan 10 mg Oral tab 1 tab 30 mins before meals 18. Symbicort 160-4.5 mcg/actuation inhalation HFAA 2 puffs 2 times per day 19. tizanidine 2 mg oral tab 1 tabs BID PRN 20. Zofran IM 4 mg every 8 hours - PMHx: acute bronchitis; Asthma; chronic abdominal pain; chronic pain syndrome; Diabetes - IDDM: controlled; DVT; Fatty Liver, Non-alchoholic; GERD; Hernia; Hypercholesterolemia; hypokalemia; hypomagnesia; Kidney stones; necrotic bowel; UTI; - PSHx: Cholecystectomy; Lumpectomy- Left; Lumpectomy- Right; bilateral knee surgery; Appendectomy; Hysterectomy; Ileostomy Construction; av fistula left leg; tumors removed from right arm; - Social history: Smoking status: Patient/guardian denies using No barriers to communication noted, The patient speaks fluent Paraguayan. - : The pt / caregiver states he / she is not on anticoagulants. Home medication list is obtained from [employer] import data. - Exposure Risk Screening:: None identified. Vital Signs: 14:42 BP 131 / 76; Pulse 97; Resp 18 S; Temp 97.8(O); Pulse Ox 96% on R/A; Weight 75.3 kg dd6 (R); Height 5 ft. 7 in. (170.18 cm) (R); 16:34 BP 136 / 80; Pulse 94; Resp 20; Temp 98.1(TE); Pulse Ox 94% on R/A; Pain 4/10; ar3 14:42 Body Mass Index 26.00 (75.30 kg, 170.18 cm) dd6 Vitals: 14:42 Log In Time: May 13, 2016 at 14:40. dd6 ED Course: 14:41 Patient visited by Eduardo Chaparro PCA. dd6 14:41 Patient moved to Waiting dd6 14:42 Tutu Sanchez MD is Private Physician. dd6 14:43 Patient moved to Pre RCE dd6 14:46 Triage Initiated dls 15:35 Patient moved to Triage 3 ar3 15:56 [facility] ef1 15:56 Juan Antunez MD is Attending Physician. ef1 16:03 Patient visited by Louann Ling PA-C. ef1 16:08 Patient moved to PR1 / 25 ar3 16:20 Patient visited by Louann Ling PA-C. ef1 16:20 Tutu Sanchez MD is Referral Physician. ef1 16:20 Silver Campuzano MD is Referral Physician. ef1 16:35 Patient visited by Marina Salazar PCA. ar3 Administered Medications: 16:12 Drug: Dilaudid - HYDROmorphone 1 mg [hydromorphone 1 mg/mL injection syringe (1 mL)] anastasia Route: IM; Site: left deltoid; Order Results: There are currently no results for this order. Outcome: 16:20 Discharge ordered by Provider. ef1 16:36 Patient left the ED. anastasia Signatures: Rachelle Espino, CORIE RN Jazmin Crowell RN RN dls Shankar Eduardo, CONCRETE HANDLER CONCRETE HANDLER dd6 Louann Ling, PADestineyC PA-C ef1 Marina Salazar, CONCRETE HANDLER CONCRETE HANDLER ar3 MTDD
--- NOTE | 2016-05-13 16:37 | EDDOCDS ---
Physician Documentation [facility] Name: Rich Olson Age: 55 yrs Sex: Female : 1960 Arrival Date: 05/13/2016 Time: 14:40 Bed PR Private MD: Tutu Sanchez Disposition: 05/13/16 16:20 Discharged to Home/Self Care. Impression: Lower abdominal pain, unspecified - Chronic. - Condition is Stable. - Discharge Instructions: Abdominal Pain, Adult. - Medication Reconciliation, Local Pharmacy Hours form. - Follow up: Tutu Sanchez; When: 1 - 2 days; Reason: Recheck today's complaints, Continuance of care. Follow up: Emergency Department; Reason: Worsening of conditions. Follow up: Silver Campuzano; When: Call to arrange an appointment; Reason: Further diagnostic work-up, Recheck today's complaints, Continuance of care. - Problem is new. - Symptoms have improved. Historical: - Allergies: Albuterol (shaky); Aspirin (stomach irritation); Ativan (hallucination); Azithromycin (Hives); BACLOFEN (shakiness); Chlorpromazine (shakiness); Ciprofloxacin (Hives); Codeine Phosphate (anxious); Colchicine (anxious); Darvocet-N 100 (nervous); Droperidol (Dystonic reaction); Fentanyl (nervous); Fluphenazine; GABAPENTIN (Rash); Gabitril (nervous); hydrocodone (confusion); IODINEIODINE CONTAINING ("body our of control"); Ipratropium [place]; Latex (Anaphylaxis); Lidoderm (Rash); Lyrica (nervous); Macrobid (shaky); Meperidine (Sleepy); mesoridazine; Midazolam (shaky and jumpy); Morphine (severe RAMIREZ); Oxycodone HCl (Hives); PENICILLINS (Hives); perphenazine (nervous); Phenergan (nervous); Prochlorperazine Maleate; Promethazine (Dystonic reaction); QUINOLONES (shaky, itchy); Readi-Cat 2; Red Dye; SULFA (SULFONAMIDES) (Hives); Tape (Rash); Theophylline (Seizures); TIAGABINE; Toradol (itchy); Tramadol HCl (nervous); Trifluoperazine; Vicodin (shaky, nervous); - Home Meds: 1. albuterol sulfate 90 mcg/actuation Inhl aepb 2 puffs every 4 hours month ago 2. amitriptyline 50 mg Oral tab 1 tab once daily 1 tab in am , 3 tabs at bedtime 3. astelin 137mcg/spray twice a day 4. Benadryl 25 mg Oral cap 1 cap as needed 5. Carafate 1 gram Oral tab 1 tab 4 times per day 6. cetirizine 10 mg oral tab 1 tab once daily 7. Dilaudid 4 mg Oral tab 1 tab every 4 hours 8. gemfibrozil 600 mg Oral tab daily 9. Glucerna Oral liqd daily 10. heparin flush fro port 11. Levemir 30 units subcutaneous daily 12. Lomotil 2.5-0.025 mg oral tab as needed 13. magnesium oxide 400 mg Oral tab 400 mg three times a day 14. Nasacort AQ 55 mcg Nasal spra 1 spray once daily 15. Novolog 20 units Sub-Q daily 16. ranitidine HCl 150 mg Oral tbef 150 mg twice a day 17. Reglan 10 mg Oral tab 1 tab 30 mins before meals 18. Symbicort 160-4.5 mcg/actuation inhalation HFAA 2 puffs 2 times per day 19. tizanidine 2 mg oral tab 1 tabs BID PRN 20. Zofran IM 4 mg every 8 hours - PMHx: acute bronchitis; Asthma; chronic abdominal pain; chronic pain syndrome; Diabetes - IDDM: controlled; DVT; Fatty Liver, Non-alchoholic; GERD; Hernia; Hypercholesterolemia; hypokalemia; hypomagnesia; Kidney stones; necrotic bowel; UTI; - PSHx: Cholecystectomy; Lumpectomy- Left; Lumpectomy- Right; bilateral knee surgery; Appendectomy; Hysterectomy; Ileostomy Construction; av fistula left leg; tumors removed from right arm; - Social history: Smoking status: Patient/guardian denies using No barriers to communication noted, The patient speaks fluent Danish. - : The pt / caregiver states he / she is not on anticoagulants. Home medication list is obtained from [employer] import data. - Exposure Risk Screening:: None identified. 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 7 in. (170.18 cm) (R); 16:34 BP 136 / 80; Pulse 94; Resp 20; Temp 98.1(TE); Pulse Ox 94% on R/A; Pain 4/10; ar3 14:42 Body Mass Index 26.00 (75.30 kg, 170.18 cm) dd6 MDM: 16:04 Dilaudid - HYDROmorphone 1 mg IM once ordered. ef1 Administered Medications: 16:12 Drug: Dilaudid - HYDROmorphone 1 mg [hydromorphone 1 mg/mL injection syringe (1 mL)] kcs Route: IM; Site: left deltoid; Signatures: Rachelle Espino RN RN kcs Jazmin Groves RN RN dls Louann Ling PA-C PAJoselyn ef1 MTDD
--- NOTE | 2016-05-15 17:37 | EDDOCDS ---
Physician Documentation [facility] Name: Rich Olson Age: 55 yrs Sex: Female : 1960 Arrival Date: 05/13/2016 Time: 14:40 Bed PR Private MD: Tutu Sanchez Disposition: 05/13/16 16:20 Discharged to Home/Self Care. Impression: Lower abdominal pain, unspecified - Chronic. - Condition is Stable. - Discharge Instructions: Abdominal Pain, Adult. - Medication Reconciliation, Local Pharmacy Hours form. - Follow up: Tutu Sanchez; When: 1 - 2 days; Reason: Recheck today's complaints, Continuance of care. Follow up: Emergency Department; Reason: Worsening of conditions. Follow up: Silver Campuzano; When: Call to arrange an appointment; Reason: Further diagnostic work-up, Recheck today's complaints, Continuance of care. - Problem is new. - Symptoms have improved. Historical: - Allergies: Albuterol (shaky); Aspirin (stomach irritation); Ativan (hallucination); Azithromycin (Hives); BACLOFEN (shakiness); Chlorpromazine (shakiness); Ciprofloxacin (Hives); Codeine Phosphate (anxious); Colchicine (anxious); Darvocet-N 100 (nervous); Droperidol (Dystonic reaction); Fentanyl (nervous); Fluphenazine; GABAPENTIN (Rash); Gabitril (nervous); hydrocodone (confusion); IODINEIODINE CONTAINING ("body our of control"); Ipratropium [place]; Latex (Anaphylaxis); Lidoderm (Rash); Lyrica (nervous); Macrobid (shaky); Meperidine (Sleepy); mesoridazine; Midazolam (shaky and jumpy); Morphine (severe RAMIREZ); Oxycodone HCl (Hives); PENICILLINS (Hives); perphenazine (nervous); Phenergan (nervous); Prochlorperazine Maleate; Promethazine (Dystonic reaction); QUINOLONES (shaky, itchy); Readi-Cat 2; Red Dye; SULFA (SULFONAMIDES) (Hives); Tape (Rash); Theophylline (Seizures); TIAGABINE; Toradol (itchy); Tramadol HCl (nervous); Trifluoperazine; Vicodin (shaky, nervous); - Home Meds: 1. albuterol sulfate 90 mcg/actuation Inhl aepb 2 puffs every 4 hours month ago 2. amitriptyline 50 mg Oral tab 1 tab once daily 1 tab in am , 3 tabs at bedtime 3. astelin 137mcg/spray twice a day 4. Benadryl 25 mg Oral cap 1 cap as needed 5. Carafate 1 gram Oral tab 1 tab 4 times per day 6. cetirizine 10 mg oral tab 1 tab once daily 7. Dilaudid 4 mg Oral tab 1 tab every 4 hours 8. gemfibrozil 600 mg Oral tab daily 9. Glucerna Oral liqd daily 10. heparin flush fro port 11. Levemir 30 units subcutaneous daily 12. Lomotil 2.5-0.025 mg oral tab as needed 13. magnesium oxide 400 mg Oral tab 400 mg three times a day 14. Nasacort AQ 55 mcg Nasal spra 1 spray once daily 15. Novolog 20 units Sub-Q daily 16. ranitidine HCl 150 mg Oral tbef 150 mg twice a day 17. Reglan 10 mg Oral tab 1 tab 30 mins before meals 18. Symbicort 160-4.5 mcg/actuation inhalation HFAA 2 puffs 2 times per day 19. tizanidine 2 mg oral tab 1 tabs BID PRN 20. Zofran IM 4 mg every 8 hours - PMHx: acute bronchitis; Asthma; chronic abdominal pain; chronic pain syndrome; Diabetes - IDDM: controlled; DVT; Fatty Liver, Non-alchoholic; GERD; Hernia; Hypercholesterolemia; hypokalemia; hypomagnesia; Kidney stones; necrotic bowel; UTI; - PSHx: Cholecystectomy; Lumpectomy- Left; Lumpectomy- Right; bilateral knee surgery; Appendectomy; Hysterectomy; Ileostomy Construction; av fistula left leg; tumors removed from right arm; - Social history: Smoking status: Patient/guardian denies using No barriers to communication noted, The patient speaks fluent Armenian. - Family history: Not pertinent. - : The pt / caregiver states he / she is not on anticoagulants. Home medication list is obtained from [employer] import data. - Exposure Risk Screening:: None identified. 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 7 in. (170.18 cm) (R); 16:34 BP 136 / 80; Pulse 94; Resp 20; Temp 98.1(TE); Pulse Ox 94% on R/A; Pain 4/10; ar3 14:42 Body Mass Index 26.00 (75.30 kg, 170.18 cm) dd6 MDM: 16:04 Dilaudid - HYDROmorphone 1 mg IM once ordered. ef1 17:38 [facility] Payment Agreement was scanned into [employer] and attached to record. [facility] :38 Financial registration complete. [facility] :55 T-Sheet-- Draft Copy was scanned into [employer] and attached to record. klr Administered Medications: 16:12 Drug: Dilaudid - HYDROmorphone 1 mg [hydromorphone 1 mg/mL injection syringe (1 mL)] anastasia Route: IM; Site: left deltoid; Signatures: Rachelle Espino RN RN kcs Scott, Debra, RN RN dls Louann Ling, EDELMIRAC KAILEE ef1 Karmen Turner Kathie klr The chart was reviewed and I authenticate all verbal orders and agree with the evaluation and treatment provided.Corrections: (The following items were deleted from the chart) 17:25 17:20 Family history Not pertinent, anastasia kcs Attachments: 17:38 [facility] Payment Agreement [facility] 21:55 T-Sheet-- Draft Copy klr Chart Complete MTDD
--- NOTE | 2016-05-15 17:37 | EDDOCDS ---
[facility] Name: Rich Olson Age: 55 yrs Sex: Female : 1960 Arrival Date: 05/13/2016 Time: 14:40 Bed PR Private MD: Tutu Sanchez Diagnosis: Lower abdominal pain, unspecified-Chronic Presentation: 05/13 14:42 Presenting complaint: Patient states: Pt presents with c/o abdominal pain pt states her dls hernia is pushing on her intestines no appointment with surgeon for two weeks has been getting toradol from PMD was seen at pain clinic today but they cannot treat abdominal pain. Mother requesting Dilaudid injection. Risk factors: the patient reports no vaginal bleeding. Adult Sepsis Screening: The patient does not have new or worsening altered mentation. Patient's respiratory rate is less than 22. Systolic blood pressure is greater than 100. Patient has a qSOFA score of 0- Negative Sepsis Screen. Suicide/Homicide risk assessment- the patient denies having any suicidal and/or homicidal ideations and does not present with any other emotional, behavioral or mental health complaints. Status: Patient is not a school services officer or dependent. Transition of care: patient was not received from another setting of care. 14:42 Acuity: THADDEUS Level 4 dls 14:42 Method Of Arrival: Wheelchair dls Triage Assessment: 14:50 General: Appears uncomfortable, well developed, Behavior is cooperative. Pain: Pain dls currently is 10 out of 10 on a pain scale. HIV screening NA for this visit Offered previously. GI: Reports lower abdominal pain. PULMONARY FELLOW: 14:50 LMP N/A - Hysterectomy dls Historical: - Allergies: Albuterol (shaky); Aspirin (stomach irritation); Ativan (hallucination); Azithromycin (Hives); BACLOFEN (shakiness); Chlorpromazine (shakiness); Ciprofloxacin (Hives); Codeine Phosphate (anxious); Colchicine (anxious); Darvocet-N 100 (nervous); Droperidol (Dystonic reaction); Fentanyl (nervous); Fluphenazine; GABAPENTIN (Rash); Gabitril (nervous); hydrocodone (confusion); IODINEIODINE CONTAINING ("body our of control"); Ipratropium [place]; Latex (Anaphylaxis); Lidoderm (Rash); Lyrica (nervous); Macrobid (shaky); Meperidine (Sleepy); mesoridazine; Midazolam (shaky and jumpy); Morphine (severe RAMIREZ); Oxycodone HCl (Hives); PENICILLINS (Hives); perphenazine (nervous); Phenergan (nervous); Prochlorperazine Maleate; Promethazine (Dystonic reaction); QUINOLONES (shaky, itchy); Readi-Cat 2; Red Dye; SULFA (SULFONAMIDES) (Hives); Tape (Rash); Theophylline (Seizures); TIAGABINE; Toradol (itchy); Tramadol HCl (nervous); Trifluoperazine; Vicodin (shaky, nervous); - Home Meds: 1. albuterol sulfate 90 mcg/actuation Inhl aepb 2 puffs every 4 hours month ago 2. amitriptyline 50 mg Oral tab 1 tab once daily 1 tab in am , 3 tabs at bedtime 3. astelin 137mcg/spray twice a day 4. Benadryl 25 mg Oral cap 1 cap as needed 5. Carafate 1 gram Oral tab 1 tab 4 times per day 6. cetirizine 10 mg oral tab 1 tab once daily 7. Dilaudid 4 mg Oral tab 1 tab every 4 hours 8. gemfibrozil 600 mg Oral tab daily 9. Glucerna Oral liqd daily 10. heparin flush fro port 11. Levemir 30 units subcutaneous daily 12. Lomotil 2.5-0.025 mg oral tab as needed 13. magnesium oxide 400 mg Oral tab 400 mg three times a day 14. Nasacort AQ 55 mcg Nasal spra 1 spray once daily 15. Novolog 20 units Sub-Q daily 16. ranitidine HCl 150 mg Oral tbef 150 mg twice a day 17. Reglan 10 mg Oral tab 1 tab 30 mins before meals 18. Symbicort 160-4.5 mcg/actuation inhalation HFAA 2 puffs 2 times per day 19. tizanidine 2 mg oral tab 1 tabs BID PRN 20. Zofran IM 4 mg every 8 hours - PMHx: acute bronchitis; Asthma; chronic abdominal pain; chronic pain syndrome; Diabetes - IDDM: controlled; DVT; Fatty Liver, Non-alchoholic; GERD; Hernia; Hypercholesterolemia; hypokalemia; hypomagnesia; Kidney stones; necrotic bowel; UTI; - PSHx: Cholecystectomy; Lumpectomy- Left; Lumpectomy- Right; bilateral knee surgery; Appendectomy; Hysterectomy; Ileostomy Construction; av fistula left leg; tumors removed from right arm; - Social history: Smoking status: Patient/guardian denies using No barriers to communication noted, The patient speaks fluent Bolivian. - Family history: Not pertinent. - : The pt / caregiver states he / she is not on anticoagulants. Home medication list is obtained from [employer] import data. - Exposure Risk Screening:: None identified. Screenin:35 Screening information is obtained from the patient. Fall risk: No risks identified. kcs Assistance ADL's: Requires assistance with meal preparation, this assistance is provided by family members, bathing, assistance is provided by family members, dressing, assistance is provided by family members, toileting, assistance is provided by family members, ambulation, assistance is provided by family members, housework, assistance is provided by family members, medication administration, assistance is provided by family members. Abuse/DV Screen: The patient / caregiver reports he/she is: not in a situation that causes fear, pain or injury. Nutritional screening: No deficits noted. Advance Directives: Currently, there is a health care proxy, mother. home support is adequate. Assessment: 16:35 Reassessment: Patient states symptoms have improved. states pain = 3/10 now.. General: kcs Appears comfortable, well developed, well nourished, well groomed, Behavior is cooperative, pleasant. Pain: Location: abdomen Pain currently is 3 out of 10 on a pain scale. Neurological: Level of Consciousness is awake, alert. Respiratory: Airway is patent Respiratory effort is even, unlabored, Respiratory pattern is regular, symmetrical. Derm: Skin is intact, is healthy with good turgor, Skin is dry, Skin is normal. Vital Signs: 14:42 BP 131 / 76; Pulse 97; Resp 18 S; Temp 97.8(O); Pulse Ox 96% on R/A; Weight 75.3 kg dd6 (R); Height 5 ft. 7 in. (170.18 cm) (R); 16:34 BP 136 / 80; Pulse 94; Resp 20; Temp 98.1(TE); Pulse Ox 94% on R/A; Pain 4/10; ar3 14:42 Body Mass Index 26.00 (75.30 kg, 170.18 cm) dd6 Vitals: 14:42 Log In Time: May 13, 2016 at 14:40. dd6 ED Course: 14:41 Patient visited by Eduardo Chaparro PCA. dd6 14:41 Patient moved to Waiting dd6 14:42 Tutu Sanchez MD is Private Physician. dd6 14:43 Patient moved to Pre RCE dd6 14:46 Triage Initiated dls 15:35 Patient moved to Triage 3 ar3 15:56 Louann Ling PA-C is PHCP. ef1 15:56 Juan Antunez MD is Attending Physician. ef1 16:03 Patient visited by Louann Ling PA-C. ef1 16:08 Patient moved to PR1 / 25 ar3 16:20 Patient visited by Louann Ling PA-C. ef1 16:20 Tutu Sanchez MD is Referral Physician. ef1 16:20 Silver Campuzano MD is Referral Physician. ef1 16:35 Patient visited by Marina Salazar PCA. ar3 16:35 The patient / caregiver is instructed regarding the plan of care and ED course. kcs 16:35 No IV's were initiated during this patient's visit. No procedures done that require kcs assistance. 17:38 [facility] Payment Agreement was scanned into [employer] and attached to record. [facility] 21:55 T-Sheet-- Draft Copy was scanned into [employer] and attached to record. klr Administered Medications: 16:12 Drug: Dilaudid - HYDROmorphone 1 mg [hydromorphone 1 mg/mL injection syringe (1 mL)] kcs Route: IM; Site: left deltoid; Order Results: There are currently no results for this order. Outcome: 16:20 Discharge ordered by Provider. ef1 16:35 Discharge Assessment: Patient awake, alert and oriented x 3. No cognitive and/or kcs functional deficits noted. Patient verbalized understanding of disposition instructions. Patient awake and alert. patient administered narcotics - yes. Pt provided with safe discharge. The following High Risk Discharge criteria are identified: None. Discharged to home via wheelchair, with parent. Condition: stable. Discharge instructions given to patient, Instructed on discharge instructions, follow up and referral plans. Demonstrated understanding of instructions, Pt was receptive of discharge instructions/ teaching. No special radiology studies were completed. Property sent home with patient. 16:36 Patient left the ED. kcs Signatures: Rachelle Espino RN RN Jazmin Crowell RN RN dls Eduardo Chaparro, TESTBOARD OPERATOR TESTBOARD OPERATOR dd6 Louann Ling, PA-C PA-C ef1 Marina Salazar, TESTBOARD OPERATOR TESTBOARD OPERATOR ar3 Karmen Turner Kathie klr Corrections: (The following items were deleted from the chart) 17:24 17:20 Reassessment: Patient states symptoms have improved. states pain = 3/10 now.. kcs kcs 17:24 17:20 General: Appears comfortable, well developed, well nourished, well groomed, kcs Behavior is cooperative, pleasant, kcs 17: 17:20 Pain: Location: abdomen Pain currently is 3 out of 10 on a pain scale. kcs kcs 17:24 17:20 Neurological: Level of Consciousness is awake, alert, kcs kcs : 17:20 Respiratory: Airway is patent Respiratory effort is even, unlabored, Respiratory kcs pattern is regular, symmetrical, kcs 17:24 17:20 Derm: Skin is intact, is healthy with good turgor, Skin is dry, Skin is normal, kcs kcs 17:25 17:20 Family history Not pertinent, kcs kcs Chart Complete MTDD
--- NOTE | 2016-05-15 17:37 | EDDOCDS ---
Physician Documentation [facility] Name: Rich Olson Age: 55 yrs Sex: Female : 1960 Arrival Date: 05/13/2016 Time: 14:40 Bed PR Private MD: Tutu Sanchez Disposition: 05/13/16 16:20 Discharged to Home/Self Care. Impression: Lower abdominal pain, unspecified - Chronic. - Condition is Stable. - Discharge Instructions: Abdominal Pain, Adult. - Medication Reconciliation, Local Pharmacy Hours form. - Follow up: Tutu Sanchez; When: 1 - 2 days; Reason: Recheck today's complaints, Continuance of care. Follow up: Emergency Department; Reason: Worsening of conditions. Follow up: Silver Campuzano; When: Call to arrange an appointment; Reason: Further diagnostic work-up, Recheck today's complaints, Continuance of care. - Problem is new. - Symptoms have improved. Historical: - Allergies: Albuterol (shaky); Aspirin (stomach irritation); Ativan (hallucination); Azithromycin (Hives); BACLOFEN (shakiness); Chlorpromazine (shakiness); Ciprofloxacin (Hives); Codeine Phosphate (anxious); Colchicine (anxious); Darvocet-N 100 (nervous); Droperidol (Dystonic reaction); Fentanyl (nervous); Fluphenazine; GABAPENTIN (Rash); Gabitril (nervous); hydrocodone (confusion); IODINEIODINE CONTAINING ("body our of control"); Ipratropium [place]; Latex (Anaphylaxis); Lidoderm (Rash); Lyrica (nervous); Macrobid (shaky); Meperidine (Sleepy); mesoridazine; Midazolam (shaky and jumpy); Morphine (severe RAMIREZ); Oxycodone HCl (Hives); PENICILLINS (Hives); perphenazine (nervous); Phenergan (nervous); Prochlorperazine Maleate; Promethazine (Dystonic reaction); QUINOLONES (shaky, itchy); Readi-Cat 2; Red Dye; SULFA (SULFONAMIDES) (Hives); Tape (Rash); Theophylline (Seizures); TIAGABINE; Toradol (itchy); Tramadol HCl (nervous); Trifluoperazine; Vicodin (shaky, nervous); - Home Meds: 1. albuterol sulfate 90 mcg/actuation Inhl aepb 2 puffs every 4 hours month ago 2. amitriptyline 50 mg Oral tab 1 tab once daily 1 tab in am , 3 tabs at bedtime 3. astelin 137mcg/spray twice a day 4. Benadryl 25 mg Oral cap 1 cap as needed 5. Carafate 1 gram Oral tab 1 tab 4 times per day 6. cetirizine 10 mg oral tab 1 tab once daily 7. Dilaudid 4 mg Oral tab 1 tab every 4 hours 8. gemfibrozil 600 mg Oral tab daily 9. Glucerna Oral liqd daily 10. heparin flush fro port 11. Levemir 30 units subcutaneous daily 12. Lomotil 2.5-0.025 mg oral tab as needed 13. magnesium oxide 400 mg Oral tab 400 mg three times a day 14. Nasacort AQ 55 mcg Nasal spra 1 spray once daily 15. Novolog 20 units Sub-Q daily 16. ranitidine HCl 150 mg Oral tbef 150 mg twice a day 17. Reglan 10 mg Oral tab 1 tab 30 mins before meals 18. Symbicort 160-4.5 mcg/actuation inhalation HFAA 2 puffs 2 times per day 19. tizanidine 2 mg oral tab 1 tabs BID PRN 20. Zofran IM 4 mg every 8 hours - PMHx: acute bronchitis; Asthma; chronic abdominal pain; chronic pain syndrome; Diabetes - IDDM: controlled; DVT; Fatty Liver, Non-alchoholic; GERD; Hernia; Hypercholesterolemia; hypokalemia; hypomagnesia; Kidney stones; necrotic bowel; UTI; - PSHx: Cholecystectomy; Lumpectomy- Left; Lumpectomy- Right; bilateral knee surgery; Appendectomy; Hysterectomy; Ileostomy Construction; av fistula left leg; tumors removed from right arm; - Social history: Smoking status: Patient/guardian denies using No barriers to communication noted, The patient speaks fluent Nepali. - Family history: Not pertinent. - : The pt / caregiver states he / she is not on anticoagulants. Home medication list is obtained from [employer] import data. - Exposure Risk Screening:: None identified. 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 7 in. (170.18 cm) (R); 16:34 BP 136 / 80; Pulse 94; Resp 20; Temp 98.1(TE); Pulse Ox 94% on R/A; Pain 4/10; ar3 14:42 Body Mass Index 26.00 (75.30 kg, 170.18 cm) dd6 MDM: 16:04 Dilaudid - HYDROmorphone 1 mg IM once ordered. ef1 17:38 [facility] Payment Agreement was scanned into [employer] and attached to record. [facility] :38 Financial registration complete. [facility] :55 T-Sheet-- Draft Copy was scanned into [employer] and attached to record. klr Administered Medications: 16:12 Drug: Dilaudid - HYDROmorphone 1 mg [hydromorphone 1 mg/mL injection syringe (1 mL)] anastasia Route: IM; Site: left deltoid; Signatures: Rachelle Espino RN RN kcs Scott, Debra, RN RN dls Louann Ling, EDELMIRAC KAILEE ef1 Karmen Turner Kathie klr The chart was reviewed and I authenticate all verbal orders and agree with the evaluation and treatment provided.Corrections: (The following items were deleted from the chart) 17:25 17:20 Family history Not pertinent, anastasia kcs Attachments: 17:38 [facility] Payment Agreement [facility] 21:55 T-Sheet-- Draft Copy klr Chart Complete MTDD
== END 2016-05-13 16:36 | disposition home or self-care (01) ==
LOC: M ED 14:40
DX: G89.4 Chronic pain syndrome (principal); R10.30 Lower abdominal pain, unspecified; J45.909 Unspecified asthma, uncomplicated; E11.9 Type 2 diabetes mellitus without complications; K75.81 Nonalcoholic steatohepatitis (NASH); K21.9 Gastro-esophageal reflux disease without esophagitis; E78.00 Pure hypercholesterolemia, unspecified; K55.9 Vascular disorder of intestine, unspecified; E87.6 Hypokalemia; E83.42 Hypomagnesemia; Z87.442 Personal history of urinary calculi; Z87.440 Personal history of urinary (tract) infections; Z86.718 Personal history of other venous thrombosis and embolism; Z90.49 Acquired absence of other specified parts of digestive tract; Z96.651 Presence of right artificial knee joint; Z96.652 Presence of left artificial knee joint; Z90.79 Acquired absence of other genital organ(s); Z90.89 Acquired absence of other organs; Z95.828 Presence of other vascular implants and grafts; Z93.2 Ileostomy status; Z79.4 Long term (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; Z79.891 Long term (current) use of opiate analgesic; Z79.51 Long term (current) use of inhaled steroids; Z79.899 Other long term (current) drug therapy; Z88.0 Allergy status to penicillin; Z88.1 Allergy status to other antibiotic agents; Z88.2 Allergy status to sulfonamides; Z88.5 Allergy status to narcotic agent; Z88.6 Allergy status to analgesic agent; Z88.8 Allergy status to other drugs, medicaments and biological substances; Z91.040 Latex allergy status; Z91.041 Radiographic dye allergy status; Z91.09 Other allergy status, other than to drugs and biological substances
CPT/HCPCS: 96372; 99283; J1170

== ENCOUNTER → 2016-05-13 | Outpatient (CLI) | payer OTHER ==
[~2016-05-13] MED LIST changes: -MAGNESIUM SULFATE 1 GM/100 ML D5W BAG (10MG/ML) (J3475) IV SCH; -ONDANSETRON 4MG/2ML VIAL (J2405) IV ONE; -SODIUM CHLORIDE 0.9% INJ 10 ML SYR IV SCH
--- NOTE | 2016-06-01 01:58 | ECWPNPC ---
PATIENT NAME: GLENN FELDER : 1960 GENDER: FEMALE VISIT DATE: 05/13/2016 DISCHARGE DATE: 05/13/16 1036 VISIT LOCKED DATE TIME: PHYSICIAN: JENNA FORDE PHYSICIAN PAGER NO: TEXT TO [phone] RESOURCE: JENNA FORDE REASON FOR APPOINTMENT 1. FOLLOW UP HISTORY OF PRESENT ILLNESS HISTORY OF PRESENT ILLNESS: PAIN THE PATIENT DESCRIBES THE PAIN... FALL RISK SCREENING: SCREENING :NO FALLS IN THE PAST YEAR TODAY'S VISIT: NOTES: RATES NECK PAIN 01/21. :, HAS HAD 2 EPISODES OF BOWEL OBSTRUCTION - IS BEING SCHEDULED FOR HERNIA SURGERY WITH DR CHAPA. HAS BEEN GOING TO DR BRAN'S OFF ICE TORODOL INJECTIONS. HAS NEEN HAVING INCREASED PAIN IN NECK AND SHOULDERS. TO SE STARTED ON EXPERIMENTAL DRUG FOR GROWTH OF INTESTINE. . CURRENT MEDICATIONS TAKING CETIRIZINE HCL 10 MG TABLET 1 TABLET NEEDED ORALLY ONCE A DAY, NOTES: 02/11/161999 TAKING MAY HAVE SAVAGE WAFERS NEW IMAGE SKIN BARRIERS FLATING FLANGES ICD: V55.3 (36550 2 1/2 CHANGE NEEDED (EDUARD), NOTES: CURRENTLY WEARING TAKING BABY WIPES 1 MISCELLANEOUS DIRECTED TOPICALLY PRN DX:569.62 TAKING ROGAINE EXTRA STRENGTH FOR MEN 5 % SOLUTION 1 DROP TO AFFECTED AREA EXTERNALLY TWICE A DAY, NOTES: 02/11/16 TAKING MAY SAVAGE BAGS CLEAR VELCRO CLOSER ([id number]) ICD:V55.3 CHANGE NEEDED (EDUARD) TAKING PAPER TAPE 1"X12YD 1 TAPE DIRECTED TOPICALLY DX: 078.10 QID PRN BANDAGE CHANGE TAKING GAUZE STRETCH BANDAGE 2X75 ROLL DIRECTED TOIPICALLY DX:078.10 QID PRN TAKING ADHESIVE TAPE 1 TAPE - TOPICALLY DAILY TAKING GAUZE BANDAGE 2" 1 EACH - TOPICALLY TO RIGHT FINGERS DAILY TAKING COMPRESSION STOCKINGS 20/30 STOCKINGS 724.4 THIGH HIGHS DAILY TAKING NASACORT AQ 55 MCG/ACT AEROSOL SOLUTION 1 PUFF IN EACH NOSTRIL NASALLY ONCE A DAY, NOTES: 02/11/161999 TAKING ASTELIN 137 MCG/SPRAY SOLUTION 1 PUFF IN EACH NOSTRIL NASALLY TWICE A DAY, NOTES: 02/11/161999 TAKING GLUCERNA 1.0 CARLOS/FIBER 1 CAN - ORALLY DAILY/DX : V44.2 TAKING ONETOUCH ULTRA TEST TEST STRIP ULTRA MINI STRIP 1 ASDIR FOUR TIMES DAILY/DX:250.02 TAKING MAGNESIUM _ _ INFUSION INFUSION ONCE WEEKLY, NOTES: 02/09/16 TAKING NORMAL SALINE FLUSH 0.9 % SOLUTION 1000CC INFUSED OVER 4 HOURS, WITH 1 GM MAGNESIUM SULFATE INTRAVENOUS DAILY TAKING ONE TOUCH ULTRA 2 LANCET 1 LANCET LANCET ICD:250.02 IDDM FOUR TIMES DAILY TAKING SYMBICORT 160-4.5 MCG/ACT AEROSOL 2 PUFFS INHALATION TWICE A DAY, NOTES: 02/11/161999 TAKING ZOCOR 20 20MG TABLET 1 TAB(S) ORAL AT BEDTIME, NOTES: 02/11/161999 TAKING NEEDLE (DISP) 30G X 1 MISCELLANEOUS 250.0 FOR LEVEMIR PEN VITRO DAILY TAKING ONE TOUCH ULTRA 2 STRIPS 1 STRIPS 250.00 - FOUR TIMES DAILY/DX: 250.00 TAKING HEPARIN SODIUM (PORCINE) 5000 UNIT/ML SOLUTION INJECTION ONCE DAILY ON WEDNESDAYS AND FRIDAYS, NOTES: 02/09/16 TAKING SYRINGE/NEEDLE (DISP) 1CC DIABETIC 1 SQ FOUR TIMES DAILY/DX:E11.9 IDDM TAKING LIDOCAINE 5 % OINTMENT 1 APPLICATION TO AFFECTED AREA NEEDED EXTERNALLY THREE TIMES A DAY TO BACK OF HEAD/NECK PRN PAIN, NOTES: 02/11/16 TAKING SYRINGE 25G X 1 MISCELLANEOUS DIRECTED INTRAMUSCULAR ONCE DAILY; ICD:R11.0 TAKING REGLAN 10 MG TABLET 1 TABLET 30 MINUTES BEFORE MEALS AND AT BEDTIME NEEDED ORALLY FOUR TIMES A DAY, NOTES: 02/11/161999 TAKING LAC-HYDRIN 12 % LOTION 1 APPLICATION TO AFFECTED AREA EXTERNALLY TWICE A DAY, NOTES: 02/11/161999 TAKING LOPID 600 MG TABLET 1 TABLET ORALLY DAILY, NOTES: 02/11/16 07 TAKING RANITIDINE HCL 150 MG TABLET 1 TABLET ORALLY TWICE A DAY, NOTES: 02/11/161999 TAKING ONE TOUCH ULTRA SYSTEM KIT METER DIRECTED ONE TOUCH ULTRA MINI-METER ONLY DX: E11.9, E11.21, E11.22, E11.65 TAKING AMITRIPTYLINE HCL 50 MG TABLET DIRECTED ORALLY 1 TAB IN AM AND 3 TABS AT BEDTIME, NOTES: 02/11/161999 TAKING CARAFATE 1 GM TABLET 1 TABLET ON AN EMPTY STOMACH ORALLY FOUR TIMES DAILY, NOTES: 02/11/161999 TAKING PEDIALYTE BOTTLE SOLUTION 1 BOTTLE ORALLY DAILY TAKING LEVEMIR 100 UNIT/ML SOLUTION INJECT 30 UNITS DAILY HOLD IF BLOOD GLUCOSE <100 TAKING NOVOLOG MIX 70/30 (70-30) 100 UNIT/ML SUSPENSION 20 UNITS SUBCUTANEOUS DAILY AT THE MIDDAY MEAL, NOTES: 02-11-16 1200 20 UNITS TAKING TIZANIDINE HCL 2 MG TABLET 1/2 TABLET ORALLY TWICE A DAY, NOTES: 02/11/161999 TAKING KLOR-CON M20 20 MEQ TABLET EXTENDED RELEASE 1 TABLET ORALLY QD, NOTES: 02/11/16699 TAKING ZOFRAN 4 MG/2ML SOLUTION 2 OR 4 ML IM (MEDICALLY NECESSARY) ONCE A DAY, NOTES: 02/11/16729 TAKING ONETOUCH LANCETS DELICA LANCET 1 SC 4 TIMES A DAY/DX:E11.90 IDDM TAKING MAGNESIUM OXIDE 400 MG TABLET DIRECTED ORALLY TID, NOTES: 02/11/161999 TAKING SIMETHICONE 125 MG TABLET CHEWABLE 1 TABLET NEEDED ORALLY FOUR TIMES A DAY PRN ABDOMINAL DISTENTION OR PAIN TAKING MIRALAX 1 SUSPENSION 17 GRAMS ORALLY DAILY TAKING ALCOHOL PREPS _ WIPE DX: E11.9 TOPICAL 5 TIMES A DAY NEEDED FOR INJECTIONS TAKING CEFDINIR 300 MG CAPSULE 1 CAPSULE ORALLY EVERY 12 HRS TAKING HYDROMORPHONE HCL 4 MG TABLET 1/2 -1 TABLET ORALLY EVERY 4 HRS PRN PAIN MDD=5 TAKING LACTULOSE 20 GM/30ML SOLUTION 15 ML ORALLY ONCE A DAY, NOTES: RAN OUT NOT-TAKING PREDNISONE 20 MG TABLET 3 TABLET ORALLY ONCE A DAY FOR 5 DAYS NOT-TAKING DOXYCYCLINE HYCLATE 100 MG CAPSULE 1 CAPSULE ORALLY EVERY 12 HRS, NOTES: LAST DOSE 02/12/2016 NOT-TAKING DOXYCYCLINE MONOHYDRATE 100 MG TABLET 1 TABLET ORALLY EVERY 12 HRS NOT-TAKING MILK OF MAGNESIA 7.75 % SUSPENSION 5 ML NEEDED ORALLY TWICE DAILY, NOTES: 12-25-151999 NOT-TAKING NYSTATIN POWDER 277348 UNIT/GM POWDER DIRECTED EXTERNALLY TWICE A DAY TO SKIN SURROUNDING STOMA INTIL HEALED, NOTES: NONE NOT-TAKING BENADRYL ALLERGY 25 MG TABLET 1 TABLET NEEDED ORALLY EVERY 6 HRS NOT-TAKING KETOTIFEN FUMARATE 0.025 % SOLUTION 1 DROP INTO AFFECTED EYE OPHTHALMIC TWICE A DAY DISCONTINUED AMITIZA 24 MCG CAPSULE 1 CAPSULE WITH FOOD ORALLY DAILY MEDICATION LIST REVIEWED AND RECONCILED WITH THE PATIENT PAST MEDICAL HISTORY DM II WITH NEUROPATHY ASTHMA HYPERLIPIDEMIA GERD NEPHROLITHIASIS ALLERGIC RHINITIS CHRONIC MAXILLARY SINUSITIS CHRONIC HEADACHES (PAIN MANAGEMENT) CHRONIC PAIN SYNDROME/RSD (PAIN MANAGEMENT) PERSONAL HISTORY OF VENOUS THROMBOSIS AND EMBOLISM (RESOLVED 12/19/2009) H/O MULTIPLE ABDOMINAL SURGERIES ALLERGIES IODINE: NERVES, TIGHT MUSCLES: SIDE EFFECTS GABAPENTIN: NERVOUS SYSTEM,SHAKEY: SIDE EFFECTS GABITRIL: NERVOUS: SIDE EFFECTS KETOROLAC TROMETHAMINE: VOMITING: SIDE EFFECTS MEPERIDINE HCL: OUT OF BODY EXPERIENCE: SIDE EFFECTS MORPHINE SULFATE: SEVERE H/A WITH BIG DOSE: SIDE EFFECTS PROMETHAZINE HCL: OUT OF BODY EXPERIENCE: SIDE EFFECTS TRAMADOL: SHAKES: SIDE EFFECTS OXYCODONE: VOMITING,HIVES: ALLERGY PENICILLIN (FOR ALLERGIES USE ONLY): HIVES: ALLERGY FENTANYL: NERVOUS: SIDE EFFECTS DROPERIDOL: OUT OF BODY: SIDE EFFECTS CODEINE SULFATE: OUT OF BODY EXPERIENCE: SIDE EFFECTS PHENOTHIAZINES: NERVOUS SYSTEM: SIDE EFFECTS QUINOLONES- CIPRO,TEQUIN: HIVES: ALLERGY RED FOOD DYE: RASH: ALLERGY LIDODERM (LICOCANINE): HEART RACES: SIDE EFFECTS SULFA: HIVES: ALLERGY ASPIRIN: HIVES: ALLERGY ATIVAN: HALLUCINATIONS: SIDE EFFECTS AZITHROMYCIN: HIVES: ALLERGY BACLOFEN: AFFECTED NERVOUS SYT: SIDE EFFECTS LYRICA: SHAKES, EVERYTHING IS BLACK: SIDE EFFECTS VICODIN: CONFUSION: SIDE EFFECTS MACROBID: HIVES, BLURRED VISION: ALLERGY READI-CAT: HIVES: ALLERGY ALBUTEROL SULFATE: COUGH: ALLERGY GASTROGRAFIN: ONLY 1 BOTTLE PER TEST DAY (CAN NOT TOLERATE ANY MORE THAN 1 BOTTLE): CONTRAINDICATION LATEX (FOR ALLERGY USE ONLY): DIFFICULTY : ALLERGY SOCIAL HISTORY GENERAL: TOBACCO USE ARE YOU A:NONSMOKER LEARNING BARRIERS / SPECIAL NEEDS ORIENTED TO PLAN OF CARE: PATIENT, PAIN MANAGEMENT PATIENT, ORIENTED TO PLAN OF CARE: PATIENT, PAIN MANAGEMENT PATIENT. NEW PATIENT PAIN DIARY TODAY'S VISITNOTES FROM 0-10, WHAT LEVEL IS YOUR PAIN TODAY?0 PAIN CLINIC PFS, CLERGY, PUBLIC HEALTH REFERRALS PFS REFERRAL NEEDED?NO CLERGY REFERRAL NEEDED?NO PUBLIC HEALTH REFERRAL NEEDED?NO WAS THE PROVIDER NOTIFIED OF ANY PERTINENT INFO?NO PFS REFERRAL NEEDED?NO CLERGY REFERRAL NEEDED?NO PUBLIC HEALTH REFERRAL NEEDED?NO WAS THE PROVIDER NOTIFIED OF ANY PERTINENT INFO?NO REVIEW OF SYSTEMS CONSTITUTIONAL: ANY CHANGE IN YOUR MEDICAL CONDITION? NO . CHILLS NO . FEVER NO . INFECTION: DO YOU HAVE NEW INFECTIONS? NO . DO YOU HAVE HISTORY OF MRSA? NO . MUSCULOSKELETAL: ANY NEW PATTERNS OF PAIN OR NUMBNESS? NO . GASTROENTEROLOGY: ANY NEW CHANGE IN BOWEL CONTROL? NO . GENITOURINARY: ANY NEW CHANGE IN BLADDER CONTROL? NO . IS THERE A CHANCE YOU COULD BE ? NO . HEMATOLOGY/LYMPH: DO YOU TAKE ANY BLOOD THINNERS? (FOR EXAMPLE- COUMADIN, PLAVIX, AGGRENOX, PLATEL, PRADAXA, OR XARELTO) YES HEPARIN . WHEN WAS YOUR LAST DOSE? DATE: TIME: . NEUROLOGY: HAVE YOU FALLEN IN THE PAST 6 MONTHS? NO . ANY NEW EXTREMITY NUMBNESS OR WEAKNESS? NO . CARDIOLOGY: DO YOU HAVE A PACEMAKER OR DEFIBRILLATOR? NO . RESPIRATORY: HAVE YOU BEEN SICK IN THE PAST WEEK? NO . FEVER NO . FLU LIKE SYMPTOMS? NO . COUGH NO . INTEGUMENTARY: DO YOU HAVE ANY RASHES OR OPEN SORES? NO . ALLERGIC/IMMUNO: ARE YOU ALLERGIC TO SHELLFISH OR IV DYE? YES BOTH . ANY NEW ALLERGIES? NO . PSYCHIATRIC: DO YOU HAVE THOUGHTS OF HURTING YOURSELF OR SOMEONE ELSE? NO . ARE YOU ABUSED, NEGLECTED, OR IN AN UNSAFE ENVIRONMENT? NO . ENDOCRINOLOGY: ARE YOU DIABETIC? YES VARIABLE . OTHER: DO YOU NEED ANY PRESCRIPTIONS? NO . IF YES, PLEASE LIST: ____ . ANY NEW PROBLEMS WITH YOUR MEDICATIONS? NO . WHEN DID YOU LAST EAT? ____ . WHEN DID YOU LAST DRINK? ____ . WHAT DID YOU LAST DRINK? ____ . NAME OF PERSON DRIVING YOU HOME? ____ . DO YOU HAVE ANY OTHER QUESTIONS OR CONCERNS NO . REVIEWED BY: PROVIDER: JENNA SANABRIA . VITAL SIGNS WT 166 LBS, HT 67 IN, BMI 26.00 INDEX, BP 133/75 MM HG, HR 82 /MIN, RR 16 /MIN, TEMP 98.3 F, OXYGEN SAT % 97%, NA INITIALS SC 10:03, REVIEWED BY: AD. EXAMINATION GENERAL EXAMINATION: GENERAL APPEARANCE:FACE FLUSHED. PSYCHALERT , ORIENTED X 3 , APPROPRIATE MOOD AND AFFECT . LUNGS:CLEAR TO AUSCULTATION BILATERALLY. HEART:HEART RATE REGULAR. MUSCULOSKELETAL:TRIGGER POINTS:, ELICITED WITH PALPATION OVER CERVICAL SPINOUS PROCESSES AND ACROSS THE TRAPEZIUS MUSCLES BILATERALLY. SOME MILD RESTRICTION OF ROM IS NOTED WITH NECK ROTATION. . EXTREMITIES: TENDERNESS RIGHT FOREARMALONG INCISION BUT IS ABLE TO TOLERATE LIGHT TOUCH TODAY.. ASSESSMENTS OCCIPITAL NEURALGIA - M54.81 (PRIMARY) MYALGIA - M79.1 CHRONIC PRESCRIPTION OPIATE USE - Z79.891 TREATMENT OCCIPITAL NEURALGIA TRIGGER POINT 3 + AREAS MYALGIA NOTES: NECK AND SHOULDER TRIGGER POINTS/MYALGIA. PREVENTIVE MEDICINE PAIN CLINIC TEACHING: PROCEDURE TEACHING PATIENT DECLINED INFORMATION ON TPI STATING SHE HAS HAD THEM IN THE PAST AND IS FAMILIAR WITH THEM. PRE-PROCEDURE INSTRUCTION REVIEWED WITH PATIENT INCLUDING NPO STATUS, BRINGING A DESIGN ENGINEERING INTERN, HOLDING DIABETIC MEDICATIONS, DOING FSBS THE MORNING OF THE PROCEDURE. SHE WAS TO CONTINUE WITH THE HEPARIN FLUSHES FOR HER PORT PER Damian FORDE LAND LAW EXAMINER. WRITTEN INSTRUCTIONS WERE PROVIDED TO THE PATIENT. . PROCEDURE CODES FA211 ESTABILISHED PATIENT [facility] CHARGE DISPOSITION & COMMUNICATION FOLLOW UP AFTER INJECTION (REASON: SCHED MIKEY FOR NECK TPI/NECK) ELECTRONICALLY SIGNED BY JONATAN LANGFORD ON 05/30/2016 AT 01:24 PM EST DISCLAIMER : THIS IS A VISIT SUMMARY EXTRACTED FROM THE [employer] Pocket CHART. IT IS NOT A COPY OF THE [employer] PROGRESS NOTE. MARLYN
== END ==
LOC: M PAIN 10:00
PROVIDERS: ATTEND Nurse Practitioner Family
DX: Z09 Encounter for follow-up examination after completed treatment for conditions other than malignant neoplasm (principal); G89.29 Other chronic pain; M54.81 Occipital neuralgia; M79.1 Myalgia; R51 Headache; G90.50 Complex regional pain syndrome I, unspecified; K46.0 Unspecified abdominal hernia with obstruction, without gangrene; E11.40 Type 2 diabetes mellitus with diabetic neuropathy, unspecified; J45.909 Unspecified asthma, uncomplicated; E78.5 Hyperlipidemia, unspecified; K21.9 Gastro-esophageal reflux disease without esophagitis; J32.0 Chronic maxillary sinusitis; Z98.890 Other specified postprocedural states; Z88.8 Allergy status to other drugs, medicaments and biological substances; Z88.5 Allergy status to narcotic agent; Z88.2 Allergy status to sulfonamides; Z88.0 Allergy status to penicillin; L23.4 Allergic contact dermatitis due to dyes; Z91.013 Allergy to seafood; Z88.6 Allergy status to analgesic agent; Z91.040 Latex allergy status; Z79.01 Long term (current) use of anticoagulants; Z79.4 Long term (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; Z79.899 Other long term (current) drug therapy; Z86.718 Personal history of other venous thrombosis and embolism

== ENCOUNTER 2016-05-14 06:39 | Outpatient (CLI) | payer OTHER ==
[2016-05-14] MEDS ORDERED: ONDANSETRON 4MG/2ML VIAL (J2405) IV ONE (06:45)
[2016-05-14 07:43] LABS: ALBUMIN 3.5 GM/DL (3.2-5.2); ANION GAP 10 MEQ/L (8-16); BLOOD UREA NITROGEN 15 MG/DL (7-18); CALCIUM LEVEL 10.3 MG/DL (8.5-10.1); CARBON DIOXIDE LEVEL 28 MEQ/L (21-32); CHLORIDE LEVEL 102 MEQ/L (98-107); CREATININE FOR GFR 0.59 MG/DL (0.55-1.02); GLOMERULAR FILTRATION RATE > 60.0 (>51); GLUCOSE, FASTING 200 MG/DL (70-105); MAGNESIUM LEVEL 1.6 MG/DL (1.8-2.4); PHOSPHORUS LEVEL 3.4 MG/DL (2.5-4.9); SODIUM LEVEL 140 MEQ/L (136-145)
[2016-05-14] MEDS ORDERED: SODIUM CHLORIDE 0.9% INJ 10 ML SYR IV SCH (09:00)
== END 2016-05-14 07:40 | disposition home or self-care (01) ==
LOC: M INFU 06:39
PROVIDERS: ATTEND Family Medicine
DX: E83.42 Hypomagnesemia (principal); Z79.899 Other long term (current) drug therapy; Z79.4 Long term (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; Z88.1 Allergy status to other antibiotic agents; Z88.5 Allergy status to narcotic agent; Z91.02 Food additives allergy status; Z91.018 Allergy to other foods; Z91.048 Other nonmedicinal substance allergy status; Z88.0 Allergy status to penicillin
CPT/HCPCS: 36415; 80069; 83735; 96374; J2405

== ENCOUNTER 2016-05-15 14:07 | Emergency (ER) | payer OTHER ==
[2016-05-15] MEDS ORDERED: HYDROmorphone HCL 1 MG/ML SYRINGE (J1170) As Ordered ONE (15:33)
--- NOTE | 2016-05-15 16:14 | EDDOCDS ---
Nurse's Notes [facility] Name: Rich Olson Age: 55 yrs Sex: Female : 1960 Arrival Date: 05/15/2016 Time: 14:07 Bed PR1 / 25 Private MD: Tutu Sanchez D Diagnosis: Other abdominal pain-ACUTE ON CHRONIC, LEFT SIDED Presentation: 05/15 14:22 Presenting complaint: Patient states: Was seen here on Friday for the same. Has a jo3 hernia that is causing increased pain. Has an appointment with dr Campuzano on Friday. Risk factors: the patient reports no vaginal bleeding. Adult Sepsis Screening: The patient does not have new or worsening altered mentation. Patient's respiratory rate is less than 22. Systolic blood pressure is greater than 100. Patient has a qSOFA score of 0- Negative Sepsis Screen. Suicide/Homicide risk assessment- the patient denies having any suicidal and/or homicidal ideations and does not present with any other emotional, behavioral or mental health complaints. 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 Transition of care: patient was not received from another setting of care. 14:22 Acuity: THADDEUS Level 3 jo3 14:22 Method Of Arrival: Walkin/Carried/Asstd jo3 Triage Assessment: 14:26 General: Appears in no apparent distress, Behavior is appropriate for age, cooperative. jo3 Pain: Pain currently is 10 out of 10 on a pain scale. HIV screening NA for this visit Offered previously. Neurological: Level of Consciousness is awake, alert, Oriented to person, place, time. Respiratory: Airway is patent Respiratory effort is even, unlabored. 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 - Hysterectomy jo3 Historical: - Allergies: Albuterol (shaky); Aspirin (stomach irritation); Ativan (hallucination); Azithromycin (Hives); BACLOFEN (shakiness); Chlorpromazine (shakiness); Ciprofloxacin (Hives); Codeine Phosphate (anxious); Colchicine (anxious); Darvocet-N 100 (nervous); Droperidol (Dystonic reaction); Fentanyl (nervous); Fluphenazine; GABAPENTIN (Rash); Gabitril (nervous); hydrocodone (confusion); IODINEIODINE CONTAINING ("body our of control"); Ipratropium [place]; Latex (Anaphylaxis); Lidoderm (Rash); Lyrica (nervous); Macrobid (shaky); Meperidine (Sleepy); mesoridazine; Midazolam (shaky and jumpy); Morphine (severe RAMIREZ); Oxycodone HCl (Hives); PENICILLINS (Hives); perphenazine (nervous); Phenergan (nervous); Prochlorperazine Maleate; Promethazine (Dystonic reaction); QUINOLONES (shaky, itchy); Readi-Cat 2; Red Dye; SULFA (SULFONAMIDES) (Hives); Tape (Rash); Theophylline (Seizures); TIAGABINE; Toradol (itchy); Tramadol HCl (nervous); Trifluoperazine; Vicodin (shaky, nervous); - Home Meds: 1. amitriptyline 50 mg Oral tab 1 tab once daily 1 tab in am , 3 tabs at bedtime 2. astelin 137mcg/spray twice a day 3. Benadryl 25 mg Oral cap 1 cap as needed 4. Carafate 1 gram Oral tab 1 tab 4 times per day 5. cetirizine 10 mg oral tab 1 tab once daily 6. Dilaudid 4 mg Oral tab 1 tab every 4 hours 7. gemfibrozil 600 mg Oral tab daily 8. Glucerna Oral liqd daily 9. heparin flush fro port 10. Levemir 30 units subcutaneous daily 11. Lomotil 2.5-0.025 mg oral tab as needed 12. magnesium oxide 400 mg Oral tab 400 mg three times a day 13. Nasacort AQ 55 mcg Nasal spra 1 spray once daily 14. Novolog 20 units Sub-Q daily 15. ranitidine HCl 150 mg Oral tbef 150 mg twice a day 16. Reglan 10 mg Oral tab 1 tab 30 mins before meals 17. Symbicort 160-4.5 mcg/actuation inhalation HFAA 2 puffs 2 times per day 18. tizanidine 2 mg oral tab 1 tabs BID PRN 19. Zofran IM 4 mg every 8 hours - PMHx: acute bronchitis; Asthma; chronic abdominal pain; chronic pain syndrome; Diabetes - IDDM: controlled; DVT; Fatty Liver, Non-alchoholic; GERD; Hernia; Hypercholesterolemia; hypokalemia; hypomagnesia; Kidney stones; necrotic bowel; UTI; - PSHx: Cholecystectomy; Lumpectomy- Left; Lumpectomy- Right; bilateral knee surgery; Appendectomy; Hysterectomy; Ileostomy Construction; av fistula left leg; tumors removed from right arm; - Social history: Smoking status: Patient states was never smoker of tobacco. No barriers to communication noted, The patient speaks fluent Libyan, Speaks appropriately for age. - Family history: Not pertinent. - : The pt / caregiver states he / she is not on anticoagulants. Home medication list is obtained from the patient. - Exposure Risk Screening:: None identified. Screenin:12 Screening information is obtained from the patient. Fall risk: At risk due to weakness. ck1 Assistance ADL's: requires no assistance with activities of daily living. Abuse/DV Screen: The patient / caregiver reports he/she is: not in a situation that causes fear, pain or injury. Nutritional screening: No deficits noted. Advance Directives: Currently, there is no health care proxy. home support is adequate. Assessment: 15:38 General: Appears in no apparent distress, comfortable, Behavior is cooperative. Pain: jf3 Location: left upper quadrant and left lower quadrant Pain currently is 10 out of 10 on a pain scale. Neurological: Level of Consciousness is awake, alert, Oriented to person, place, time. Cardiovascular: Capillary refill < 3 seconds Chest pain is denied. Cardiovascular: Heart tones S1 S2 present. Respiratory: Airway is patent Respiratory effort is even, unlabored, Respiratory pattern is regular, symmetrical. Respiratory: Breath sounds are clear bilaterally. Denies shortness of breath. GI: Abdomen is obese, Bowel sounds present X 4 quads. Abd is soft X 4 quads Abd is tender to palpation in left upper quadrant and left lower quadrant. Derm: Skin is normal. 16:12 General: Appears in no apparent distress, comfortable, Behavior is appropriate for age, ck1 cooperative. Pain: Location: abdomen Pain currently is 1 out of 10 on a pain scale. Respiratory: Respiratory effort is unlabored, Respiratory pattern is regular, symmetrical. GI: No deficits noted. Derm: Skin is normal. Vital Signs: 14:09 BP 144 / 78 LA Sitting (auto/reg); Pulse 102; Resp 20; Temp 98.4(O); Pulse Ox 97% on jrd R/A; Weight 75.3 kg (R); Height 5 ft. 7 in. (170.18 cm) (R); Pain 10/10; 16:08 BP 125 / 72; Pulse 92; Resp 18; Temp 97.7(T); Pulse Ox 96% on R/A; Pain 1/10; nb2 14:09 Body Mass Index 26.00 (75.30 kg, 170.18 cm) [facility] Vitals: 14:09 Log In Time: May 15, 2016 at 14:07. d ED Course: 14:08 Patient visited by Sandeep Chambers PCA. jrd 14:08 Patient moved to Waiting jrd 14:09 Tutu Sanchez is Private Physician. jrd 14:10 Patient visited by Sandeep Chambers PCA. jrd 14:10 Patient moved to Pre RCE jrd 14:23 Triage Initiated jo3 14:27 Patient visited by Sanjuana Osuna RN. jo3 14:53 Patient moved to Triage 3 ck1 14:58 Em[facility]cam[facility]. dt4 14:58 Juan Antunez MD is Attending Physician. dt4 14:58 Patient visited by Emilia Carcamo PA-C. dt4 15:14 Patient moved to PR1 / 25 ck1 15:38 The patient / caregiver is instructed regarding the plan of care and ED course. jf3 15:59 Patient visited by Emilia Carcamo PA-C. dt4 16:08 Patient visited by Terri Silva. nb2 16:12 No IV's were initiated during this patient's visit. No procedures done that require ck1 assistance. Administered Medications: 15:36 Drug: Dilaudid - HYDROmorphone 1 mg [hydromorphone 1 mg/mL injection syringe (1 mL)] jf3 Route: IM; Site: left deltoid; Order Results: There are currently no results for this order. Outcome: 16:01 Discharge ordered by Provider. dt4 16:12 Discharge Assessment: Patient awake, alert and oriented x 3. No cognitive and/or ck1 functional deficits noted. Patient verbalized understanding of disposition instructions. patient administered narcotics - yes. Pt provided with safe discharge. The following High Risk Discharge criteria are identified: None. Discharged to home via wheelchair, with parent. Condition: stable. Discharge instructions given to patient, Instructed on discharge instructions, follow up and referral plans. medication usage, Demonstrated understanding of instructions, medications, Pt was receptive of discharge instructions/ teaching. No special radiology studies were completed. Property :Personal belongings accompany Pt. 16:13 Patient left the ED. ck1 Signatures: Sandra Trejo,RN RN ck1 Sanjuana OsunaRN RN rafa3 Emilia Carcamo, KAILEE PAJoselyn dt4 Sandeep Chambers PCA PCA jrd Farman, Justin,RN RN jf3 Terri Silva nb2 MTDD
--- NOTE | 2016-05-15 16:14 | EDDOCDS ---
Physician Documentation [facility] Name: Rihc Olson Age: 55 yrs Sex: Female : 1960 Arrival Date: 05/15/2016 Time: 14:07 Bed Private MD: Tutu Sanchez D Disposition: 05/15/16 16:01 Discharged to Home/Self Care. Impression: Other abdominal pain - ACUTE ON CHRONIC, LEFT SIDED. - Condition is Stable. - Discharge Instructions: Abdominal Pain, Adult. - Medication Reconciliation, Local Pharmacy Hours form. - Follow up: Emergency Department; When: As needed; Reason: Worsening of conditions. Follow up: Private Physician; When: 2 - 3 days; Reason: Wound/Symptom Recheck, Recheck today's complaints, Continuance of care. - Problem is new. - Symptoms have improved. Historical: - Allergies: Albuterol (shaky); Aspirin (stomach irritation); Ativan (hallucination); Azithromycin (Hives); BACLOFEN (shakiness); Chlorpromazine (shakiness); Ciprofloxacin (Hives); Codeine Phosphate (anxious); Colchicine (anxious); Darvocet-N 100 (nervous); Droperidol (Dystonic reaction); Fentanyl (nervous); Fluphenazine; GABAPENTIN (Rash); Gabitril (nervous); hydrocodone (confusion); IODINEIODINE CONTAINING ("body our of control"); Ipratropium [place]; Latex (Anaphylaxis); Lidoderm (Rash); Lyrica (nervous); Macrobid (shaky); Meperidine (Sleepy); mesoridazine; Midazolam (shaky and jumpy); Morphine (severe RAMIREZ); Oxycodone HCl (Hives); PENICILLINS (Hives); perphenazine (nervous); Phenergan (nervous); Prochlorperazine Maleate; Promethazine (Dystonic reaction); QUINOLONES (shaky, itchy); Readi-Cat 2; Red Dye; SULFA (SULFONAMIDES) (Hives); Tape (Rash); Theophylline (Seizures); TIAGABINE; Toradol (itchy); Tramadol HCl (nervous); Trifluoperazine; Vicodin (shaky, nervous); - Home Meds: 1. amitriptyline 50 mg Oral tab 1 tab once daily 1 tab in am , 3 tabs at bedtime 2. astelin 137mcg/spray twice a day 3. Benadryl 25 mg Oral cap 1 cap as needed 4. Carafate 1 gram Oral tab 1 tab 4 times per day 5. cetirizine 10 mg oral tab 1 tab once daily 6. Dilaudid 4 mg Oral tab 1 tab every 4 hours 7. gemfibrozil 600 mg Oral tab daily 8. Glucerna Oral liqd daily 9. heparin flush fro port 10. Levemir 30 units subcutaneous daily 11. Lomotil 2.5-0.025 mg oral tab as needed 12. magnesium oxide 400 mg Oral tab 400 mg three times a day 13. Nasacort AQ 55 mcg Nasal spra 1 spray once daily 14. Novolog 20 units Sub-Q daily 15. ranitidine HCl 150 mg Oral tbef 150 mg twice a day 16. Reglan 10 mg Oral tab 1 tab 30 mins before meals 17. Symbicort 160-4.5 mcg/actuation inhalation HFAA 2 puffs 2 times per day 18. tizanidine 2 mg oral tab 1 tabs BID PRN 19. Zofran IM 4 mg every 8 hours - PMHx: acute bronchitis; Asthma; chronic abdominal pain; chronic pain syndrome; Diabetes - IDDM: controlled; DVT; Fatty Liver, Non-alchoholic; GERD; Hernia; Hypercholesterolemia; hypokalemia; hypomagnesia; Kidney stones; necrotic bowel; UTI; - PSHx: Cholecystectomy; Lumpectomy- Left; Lumpectomy- Right; bilateral knee surgery; Appendectomy; Hysterectomy; Ileostomy Construction; av fistula left leg; tumors removed from right arm; - Social history: Smoking status: Patient states was never smoker of tobacco. No barriers to communication noted, The patient speaks fluent Tajik, Speaks appropriately for age. - Family history: Not pertinent. - : The pt / caregiver states he / she is not on anticoagulants. Home medication list is obtained from the patient. - Exposure Risk Screening:: None identified. 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 7 in. (170.18 cm) (R); Pain 10/10; 16:08 BP 125 / 72; Pulse 92; Resp 18; Temp 97.7(T); Pulse Ox 96% on R/A; Pain 1/10; nb2 14:09 Body Mass Index 26.00 (75.30 kg, 170.18 cm) jrd MDM: 15:10 Dilaudid - HYDROmorphone 1 mg IM once ordered. dt4 15:12 Abdomen, Flat\\E\\Upright,PA Chest Ordered. EDMS Administered Medications: 15:36 Drug: Dilaudid - HYDROmorphone 1 mg [hydromorphone 1 mg/mL injection syringe (1 mL)] jf3 Route: IM; Site: left deltoid; Signatures: Dispatcher [employer] EDMS Sandra Trejo RN RN ck1 Sanjuana Osuna RN RN jo3 Emilia Carcamo PA-C PA-C dt4 Randy Kc,CORIE RN jf3 MTDD
--- NOTE | 2016-05-15 16:24 | REP ---
Abdominal series: Three views. History: Left lateral abdominal pain. Question obstruction. Findings: Upright chest radiograph compared with the May 08, 2016 prior study. The heart is somewhat enlarged unchanged. There is an Bsoxyu-X-Girj catheter again noted in place. A dorsal column stimulator is seen in the thoracic canal. There is some linear fibrosis in the right base. Lung garcía are otherwise clear. No free subdiaphragmatic air is seen. Supine and erect views of the abdomen demonstrate multiple surgical clips distributed throughout the abdomen. There is an enterostomy device in the left lower quadrant. Bowel gas pattern is unremarkable. Psoas margins are symmetric. No evidence of free air or obstruction. Impression: Postoperative changes and left lower quadrant enterostomy. No evidence of obstruction or free air. Cardiomegaly. Dorsal column stimulator and right sided [id number]-Tvfw catheter is seen. Signed by Skyler Godoy MD 05/15/2016 04:25 P
--- NOTE | 2016-05-17 17:14 | EDDOCDS ---
Physician Documentation [facility] Name: Rich Olson Age: 55 yrs Sex: Female : 1960 Arrival Date: 05/15/2016 Time: 14:07 Bed Private MD: Tutu Sanchez D Disposition: 05/15/16 16:01 Discharged to Home/Self Care. Impression: Other abdominal pain - ACUTE ON CHRONIC, LEFT SIDED. - Condition is Stable. - Discharge Instructions: Abdominal Pain, Adult. - Medication Reconciliation, Local Pharmacy Hours form. - Follow up: Emergency Department; When: As needed; Reason: Worsening of conditions. Follow up: Private Physician; When: 2 - 3 days; Reason: Wound/Symptom Recheck, Recheck today's complaints, Continuance of care. - Problem is new. - Symptoms have improved. Historical: - Allergies: Albuterol (shaky); Aspirin (stomach irritation); Ativan (hallucination); Azithromycin (Hives); BACLOFEN (shakiness); Chlorpromazine (shakiness); Ciprofloxacin (Hives); Codeine Phosphate (anxious); Colchicine (anxious); Darvocet-N 100 (nervous); Droperidol (Dystonic reaction); Fentanyl (nervous); Fluphenazine; GABAPENTIN (Rash); Gabitril (nervous); hydrocodone (confusion); IODINEIODINE CONTAINING ("body our of control"); Ipratropium [place]; Latex (Anaphylaxis); Lidoderm (Rash); Lyrica (nervous); Macrobid (shaky); Meperidine (Sleepy); mesoridazine; Midazolam (shaky and jumpy); Morphine (severe RAMIREZ); Oxycodone HCl (Hives); PENICILLINS (Hives); perphenazine (nervous); Phenergan (nervous); Prochlorperazine Maleate; Promethazine (Dystonic reaction); QUINOLONES (shaky, itchy); Readi-Cat 2; Red Dye; SULFA (SULFONAMIDES) (Hives); Tape (Rash); Theophylline (Seizures); TIAGABINE; Toradol (itchy); Tramadol HCl (nervous); Trifluoperazine; Vicodin (shaky, nervous); - Home Meds: 1. amitriptyline 50 mg Oral tab 1 tab once daily 1 tab in am , 3 tabs at bedtime 2. astelin 137mcg/spray twice a day 3. Benadryl 25 mg Oral cap 1 cap as needed 4. Carafate 1 gram Oral tab 1 tab 4 times per day 5. cetirizine 10 mg oral tab 1 tab once daily 6. Dilaudid 4 mg Oral tab 1 tab every 4 hours 7. gemfibrozil 600 mg Oral tab daily 8. Glucerna Oral liqd daily 9. heparin flush fro port 10. Levemir 30 units subcutaneous daily 11. Lomotil 2.5-0.025 mg oral tab as needed 12. magnesium oxide 400 mg Oral tab 400 mg three times a day 13. Nasacort AQ 55 mcg Nasal spra 1 spray once daily 14. Novolog 20 units Sub-Q daily 15. ranitidine HCl 150 mg Oral tbef 150 mg twice a day 16. Reglan 10 mg Oral tab 1 tab 30 mins before meals 17. Symbicort 160-4.5 mcg/actuation inhalation HFAA 2 puffs 2 times per day 18. tizanidine 2 mg oral tab 1 tabs BID PRN 19. Zofran IM 4 mg every 8 hours - PMHx: acute bronchitis; Asthma; chronic abdominal pain; chronic pain syndrome; Diabetes - IDDM: controlled; DVT; Fatty Liver, Non-alchoholic; GERD; Hernia; Hypercholesterolemia; hypokalemia; hypomagnesia; Kidney stones; necrotic bowel; UTI; - PSHx: Cholecystectomy; Lumpectomy- Left; Lumpectomy- Right; bilateral knee surgery; Appendectomy; Hysterectomy; Ileostomy Construction; av fistula left leg; tumors removed from right arm; - Social history: Smoking status: Patient states was never smoker of tobacco. No barriers to communication noted, The patient speaks fluent Greek, Speaks appropriately for age. - Family history: Not pertinent. - : The pt / caregiver states he / she is not on anticoagulants. Home medication list is obtained from the patient. - Exposure Risk Screening:: None identified. 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 7 in. (170.18 cm) (R); Pain 10/10; 16:08 BP 125 / 72; Pulse 92; Resp 18; Temp 97.7(T); Pulse Ox 96% on R/A; Pain 1/10; nb2 14:09 Body Mass Index 26.00 (75.30 kg, 170.18 cm) jrd MDM: 15:10 Dilaudid - HYDROmorphone 1 mg IM once ordered. dt4 15:12 Abdomen, Flat\\E\\Upright,PA Chest Ordered. EDMS 05/16 11:42 T-Sheet-- Draft Copy was scanned into [employer] and attached to record. 11:42 Radiology Report was scanned into [employer] and attached to record. gb Administered Medications: 05/15 15:36 Drug: Dilaudid - HYDROmorphone 1 mg [hydromorphone 1 mg/mL injection syringe (1 mL)] jf3 Route: IM; Site: left deltoid; Signatures: Dispatcher [employer] EDMS Divya Perdomo, Reg Reg gb Sandra Trejo,RN RN ck1 Sanjuana OsunaRN RN jo3 Emilia Carcamo PA-C PAJoselyn dt4 Randy Kc,RN RN jf3 The chart was reviewed and I authenticate all verbal orders and agree with the evaluation and treatment provided.Attachments: 05/16 11:42 T-Sheet-- Draft Copy gb Chart Complete MTDD
--- NOTE | 2016-05-17 17:14 | EDDOCDS ---
Physician Documentation [facility] Name: Rich Olson Age: 55 yrs Sex: Female : 1960 Arrival Date: 05/15/2016 Time: 14:07 Bed Private MD: Tutu Sanchez D Disposition: 05/15/16 16:01 Discharged to Home/Self Care. Impression: Other abdominal pain - ACUTE ON CHRONIC, LEFT SIDED. - Condition is Stable. - Discharge Instructions: Abdominal Pain, Adult. - Medication Reconciliation, Local Pharmacy Hours form. - Follow up: Emergency Department; When: As needed; Reason: Worsening of conditions. Follow up: Private Physician; When: 2 - 3 days; Reason: Wound/Symptom Recheck, Recheck today's complaints, Continuance of care. - Problem is new. - Symptoms have improved. Historical: - Allergies: Albuterol (shaky); Aspirin (stomach irritation); Ativan (hallucination); Azithromycin (Hives); BACLOFEN (shakiness); Chlorpromazine (shakiness); Ciprofloxacin (Hives); Codeine Phosphate (anxious); Colchicine (anxious); Darvocet-N 100 (nervous); Droperidol (Dystonic reaction); Fentanyl (nervous); Fluphenazine; GABAPENTIN (Rash); Gabitril (nervous); hydrocodone (confusion); IODINEIODINE CONTAINING ("body our of control"); Ipratropium [place]; Latex (Anaphylaxis); Lidoderm (Rash); Lyrica (nervous); Macrobid (shaky); Meperidine (Sleepy); mesoridazine; Midazolam (shaky and jumpy); Morphine (severe RAMIREZ); Oxycodone HCl (Hives); PENICILLINS (Hives); perphenazine (nervous); Phenergan (nervous); Prochlorperazine Maleate; Promethazine (Dystonic reaction); QUINOLONES (shaky, itchy); Readi-Cat 2; Red Dye; SULFA (SULFONAMIDES) (Hives); Tape (Rash); Theophylline (Seizures); TIAGABINE; Toradol (itchy); Tramadol HCl (nervous); Trifluoperazine; Vicodin (shaky, nervous); - Home Meds: 1. amitriptyline 50 mg Oral tab 1 tab once daily 1 tab in am , 3 tabs at bedtime 2. astelin 137mcg/spray twice a day 3. Benadryl 25 mg Oral cap 1 cap as needed 4. Carafate 1 gram Oral tab 1 tab 4 times per day 5. cetirizine 10 mg oral tab 1 tab once daily 6. Dilaudid 4 mg Oral tab 1 tab every 4 hours 7. gemfibrozil 600 mg Oral tab daily 8. Glucerna Oral liqd daily 9. heparin flush fro port 10. Levemir 30 units subcutaneous daily 11. Lomotil 2.5-0.025 mg oral tab as needed 12. magnesium oxide 400 mg Oral tab 400 mg three times a day 13. Nasacort AQ 55 mcg Nasal spra 1 spray once daily 14. Novolog 20 units Sub-Q daily 15. ranitidine HCl 150 mg Oral tbef 150 mg twice a day 16. Reglan 10 mg Oral tab 1 tab 30 mins before meals 17. Symbicort 160-4.5 mcg/actuation inhalation HFAA 2 puffs 2 times per day 18. tizanidine 2 mg oral tab 1 tabs BID PRN 19. Zofran IM 4 mg every 8 hours - PMHx: acute bronchitis; Asthma; chronic abdominal pain; chronic pain syndrome; Diabetes - IDDM: controlled; DVT; Fatty Liver, Non-alchoholic; GERD; Hernia; Hypercholesterolemia; hypokalemia; hypomagnesia; Kidney stones; necrotic bowel; UTI; - PSHx: Cholecystectomy; Lumpectomy- Left; Lumpectomy- Right; bilateral knee surgery; Appendectomy; Hysterectomy; Ileostomy Construction; av fistula left leg; tumors removed from right arm; - Social history: Smoking status: Patient states was never smoker of tobacco. No barriers to communication noted, The patient speaks fluent Pashto, Speaks appropriately for age. - Family history: Not pertinent. - : The pt / caregiver states he / she is not on anticoagulants. Home medication list is obtained from the patient. - Exposure Risk Screening:: None identified. 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 7 in. (170.18 cm) (R); Pain 10/10; 16:08 BP 125 / 72; Pulse 92; Resp 18; Temp 97.7(T); Pulse Ox 96% on R/A; Pain 1/10; nb2 14:09 Body Mass Index 26.00 (75.30 kg, 170.18 cm) jrd MDM: 15:10 Dilaudid - HYDROmorphone 1 mg IM once ordered. dt4 15:12 Abdomen, Flat\\E\\Upright,PA Chest Ordered. EDMS 05/16 11:42 T-Sheet-- Draft Copy was scanned into [employer] and attached to record. 11:42 Radiology Report was scanned into [employer] and attached to record. gb Administered Medications: 05/15 15:36 Drug: Dilaudid - HYDROmorphone 1 mg [hydromorphone 1 mg/mL injection syringe (1 mL)] jf3 Route: IM; Site: left deltoid; Signatures: Dispatcher [employer] EDMS Divya Perdomo, Reg Reg gb Sandra Trejo,RN RN ck1 Sanjuana OsunaRN RN jo3 Emilia Carcamo PA-C PAJoselyn dt4 Randy Kc,RN RN jf3 The chart was reviewed and I authenticate all verbal orders and agree with the evaluation and treatment provided.Attachments: 05/16 11:42 T-Sheet-- Draft Copy gb Chart Complete MTDD
--- NOTE | 2016-05-17 17:14 | EDDOCDS ---
Nurse's Notes Name: Rich Olson Age: 55 yrs Sex: Female : 1960 Arrival Date: 05/15/2016 Time: 14:07 Bed PR1 / 25 Private MD: Tutu Sanchez D Diagnosis: Other abdominal pain-ACUTE ON CHRONIC, LEFT SIDED Presentation: 05/15 14:22 Presenting complaint: Patient states: Was seen here on Friday for the same. Has a jo3 hernia that is causing increased pain. Has an appointment with dr Campuzano on Friday. Risk factors: the patient reports no vaginal bleeding. Adult Sepsis Screening: The patient does not have new or worsening altered mentation. Patient's respiratory rate is less than 22. Systolic blood pressure is greater than 100. Patient has a qSOFA score of 0- Negative Sepsis Screen. Suicide/Homicide risk assessment- the patient denies having any suicidal and/or homicidal ideations and does not present with any other emotional, behavioral or mental health complaints. Status: Patient is not a environmental services worker or dependent. Transition of care: patient was not received from another setting of care. 14:22 Acuity: THADDEUS Level 3 jo3 14:22 Method Of Arrival: Walkin/Carried/Asstd jo3 Triage Assessment: 14:26 General: Appears in no apparent distress, Behavior is appropriate for age, cooperative. jo3 Pain: Pain currently is 10 out of 10 on a pain scale. HIV screening NA for this visit Offered previously. Neurological: Level of Consciousness is awake, alert, Oriented to person, place, time. Respiratory: Airway is patent Respiratory effort is even, unlabored. 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 - Hysterectomy jo3 Historical: - Allergies: Albuterol (shaky); Aspirin (stomach irritation); Ativan (hallucination); Azithromycin (Hives); BACLOFEN (shakiness); Chlorpromazine (shakiness); Ciprofloxacin (Hives); Codeine Phosphate (anxious); Colchicine (anxious); Darvocet-N 100 (nervous); Droperidol (Dystonic reaction); Fentanyl (nervous); Fluphenazine; GABAPENTIN (Rash); Gabitril (nervous); hydrocodone (confusion); IODINEIODINE CONTAINING ("body our of control"); Ipratropium [place]; Latex (Anaphylaxis); Lidoderm (Rash); Lyrica (nervous); Macrobid (shaky); Meperidine (Sleepy); mesoridazine; Midazolam (shaky and jumpy); Morphine (severe RAMIREZ); Oxycodone HCl (Hives); PENICILLINS (Hives); perphenazine (nervous); Phenergan (nervous); Prochlorperazine Maleate; Promethazine (Dystonic reaction); QUINOLONES (shaky, itchy); Readi-Cat 2; Red Dye; SULFA (SULFONAMIDES) (Hives); Tape (Rash); Theophylline (Seizures); TIAGABINE; Toradol (itchy); Tramadol HCl (nervous); Trifluoperazine; Vicodin (shaky, nervous); - Home Meds: 1. amitriptyline 50 mg Oral tab 1 tab once daily 1 tab in am , 3 tabs at bedtime 2. astelin 137mcg/spray twice a day 3. Benadryl 25 mg Oral cap 1 cap as needed 4. Carafate 1 gram Oral tab 1 tab 4 times per day 5. cetirizine 10 mg oral tab 1 tab once daily 6. Dilaudid 4 mg Oral tab 1 tab every 4 hours 7. gemfibrozil 600 mg Oral tab daily 8. Glucerna Oral liqd daily 9. heparin flush fro port 10. Levemir 30 units subcutaneous daily 11. Lomotil 2.5-0.025 mg oral tab as needed 12. magnesium oxide 400 mg Oral tab 400 mg three times a day 13. Nasacort AQ 55 mcg Nasal spra 1 spray once daily 14. Novolog 20 units Sub-Q daily 15. ranitidine HCl 150 mg Oral tbef 150 mg twice a day 16. Reglan 10 mg Oral tab 1 tab 30 mins before meals 17. Symbicort 160-4.5 mcg/actuation inhalation HFAA 2 puffs 2 times per day 18. tizanidine 2 mg oral tab 1 tabs BID PRN 19. Zofran IM 4 mg every 8 hours - PMHx: acute bronchitis; Asthma; chronic abdominal pain; chronic pain syndrome; Diabetes - IDDM: controlled; DVT; Fatty Liver, Non-alchoholic; GERD; Hernia; Hypercholesterolemia; hypokalemia; hypomagnesia; Kidney stones; necrotic bowel; UTI; - PSHx: Cholecystectomy; Lumpectomy- Left; Lumpectomy- Right; bilateral knee surgery; Appendectomy; Hysterectomy; Ileostomy Construction; av fistula left leg; tumors removed from right arm; - Social history: Smoking status: Patient states was never smoker of tobacco. No barriers to communication noted, The patient speaks fluent Luxembourger, Speaks appropriately for age. - Family history: Not pertinent. - : The pt / caregiver states he / she is not on anticoagulants. Home medication list is obtained from the patient. - Exposure Risk Screening:: None identified. Screenin:12 Screening information is obtained from the patient. Fall risk: At risk due to weakness. ck1 Assistance ADL's: requires no assistance with activities of daily living. Abuse/DV Screen: The patient / caregiver reports he/she is: not in a situation that causes fear, pain or injury. Nutritional screening: No deficits noted. Advance Directives: Currently, there is no health care proxy. home support is adequate. Assessment: 15:38 General: Appears in no apparent distress, comfortable, Behavior is cooperative. Pain: jf3 Location: left upper quadrant and left lower quadrant Pain currently is 10 out of 10 on a pain scale. Neurological: Level of Consciousness is awake, alert, Oriented to person, place, time. Cardiovascular: Capillary refill < 3 seconds Chest pain is denied. Cardiovascular: Heart tones S1 S2 present. Respiratory: Airway is patent Respiratory effort is even, unlabored, Respiratory pattern is regular, symmetrical. Respiratory: Breath sounds are clear bilaterally. Denies shortness of breath. GI: Abdomen is obese, Bowel sounds present X 4 quads. Abd is soft X 4 quads Abd is tender to palpation in left upper quadrant and left lower quadrant. Derm: Skin is normal. 16:12 General: Appears in no apparent distress, comfortable, Behavior is appropriate for age, ck1 cooperative. Pain: Location: abdomen Pain currently is 1 out of 10 on a pain scale. Respiratory: Respiratory effort is unlabored, Respiratory pattern is regular, symmetrical. GI: No deficits noted. Derm: Skin is normal. Vital Signs: 14:09 BP 144 / 78 LA Sitting (auto/reg); Pulse 102; Resp 20; Temp 98.4(O); Pulse Ox 97% on jrd R/A; Weight 75.3 kg (R); Height 5 ft. 7 in. (170.18 cm) (R); Pain 10/10; 16:08 BP 125 / 72; Pulse 92; Resp 18; Temp 97.7(T); Pulse Ox 96% on R/A; Pain 1/10; nb2 14:09 Body Mass Index 26.00 (75.30 kg, 170.18 cm) [facility] Vitals: 14:09 Log In Time: May 15, 2016 at 14:07. d ED Course: 14:08 Patient visited by Sandeep Chambers PCA. jrd 14:08 Patient moved to Waiting jrd 14:09 Tutu Sanchez is Private Physician. jrd 14:10 Patient visited by Sandeep Chambers PCA. jrd 14:10 Patient moved to Pre RCE jrd 14:23 Triage Initiated jo3 14:27 Patient visited by Sanjuana Osnua RN. jo3 14:53 Patient moved to Triage 3 ck1 14:58 Emilia Carcamo PA-C is PHCP. dt4 14:58 Juan Antunez MD is Attending Physician. dt4 14:58 Patient visited by Emilia Carcamo PA-C. dt4 15:14 Patient moved to PR1 / 25 ck1 15:38 The patient / caregiver is instructed regarding the plan of care and ED course. jf3 15:59 Patient visited by Emilia Carcamo PA-C. dt4 16:08 Patient visited by Terri Silva. nb2 16:12 No IV's were initiated during this patient's visit. No procedures done that require ck1 assistance. 17:16 Abdomen, Flat\\E\\Upright,PA Chest Returned. EDMS 05/16 11:42 T-Sheet-- Draft Copy was scanned into [email or web address] and attached to record. gb 11:42 Radiology Report was scanned into [email or web address] and attached to record. gb Administered Medications: 05/15 15:36 Drug: Dilaudid - HYDROmorphone 1 mg [hydromorphone 1 mg/mL injection syringe (1 mL)] jf3 Route: IM; Site: left deltoid; Order Results: Radiology Order: Abdomen, Flat\\E\\Upright,PA Chest Test: Abdomen, Flat\\E\\Upright,PA Chest REASON FOR EXAMINATION: left lateral abd pain, ?obstruction; Abdominal series: Three views.; ; History: Left lateral abdominal pain. Question obstruction.; ; Findings: Upright chest radiograph compared with the May 08, 2016 prior; study. The heart is somewhat enlarged unchanged. There is an Rixvtb-R-Pduj; catheter again noted in place. A dorsal column stimulator is seen in the; thoracic canal. There is some linear fibrosis in the right base. Lung garcía; are otherwise clear. No free subdiaphragmatic air is seen.; ; Supine and erect views of the abdomen demonstrate multiple surgical clips; distributed throughout the abdomen. There is an enterostomy device in the left; lower quadrant. Bowel gas pattern is unremarkable. Psoas margins are symmetric.; No evidence of free air or obstruction.; ; Impression:; ; Postoperative changes and left lower quadrant enterostomy. No evidence of; obstruction or free air. Cardiomegaly. Dorsal column stimulator and right sided; Qjcsyp-[id number] catheter is seen.; ; ; Signed by; Skyler Godoy MD 05/15/2016 04:25 P; Outcome: 16:01 Discharge ordered by Provider. dt4 16:12 Discharge Assessment: Patient awake, alert and oriented x 3. No cognitive and/or ck1 functional deficits noted. Patient verbalized understanding of disposition instructions. patient administered narcotics - yes. Pt provided with safe discharge. The following High Risk Discharge criteria are identified: None. Discharged to home via wheelchair, with parent. Condition: stable. Discharge instructions given to patient, Instructed on discharge instructions, follow up and referral plans. medication usage, Demonstrated understanding of instructions, medications, Pt was receptive of discharge instructions/ teaching. No special radiology studies were completed. Property :Personal belongings accompany Pt. 16:13 Patient left the ED. ck1 Signatures: Dispatcher [employer] EDMS Divya Perdomo, Reg Reg gb Sandra TrejoRN RN ck1 Sanjuana Osuna,RN RN Emilia Ramirez, KAILEE PAJoselyn dt4 Sandeep Chambers, LESLEY [employer]INKL[employer] APPARATUS INSPECTOR d Randy Kc,CORIE RN jf3 Terri Silva2 Chart Complete MTDD
== END 2016-05-15 16:13 | disposition home or self-care (01) ==
LOC: M ED 14:07
DX: R10.9 Unspecified abdominal pain (principal); J20.9 Acute bronchitis, unspecified; J45.909 Unspecified asthma, uncomplicated; G89.4 Chronic pain syndrome; E11.9 Type 2 diabetes mellitus without complications; K76.0 Fatty (change of) liver, not elsewhere classified; K21.9 Gastro-esophageal reflux disease without esophagitis; K46.9 Unspecified abdominal hernia without obstruction or gangrene; E78.00 Pure hypercholesterolemia, unspecified; E87.6 Hypokalemia; E83.42 Hypomagnesemia; Z87.440 Personal history of urinary (tract) infections; Z86.718 Personal history of other venous thrombosis and embolism; Z87.442 Personal history of urinary calculi; Z79.01 Long term (current) use of anticoagulants; Z79.4 Long term (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; Z79.899 Other long term (current) drug therapy; Z88.8 Allergy status to other drugs, medicaments and biological substances; Z88.1 Allergy status to other antibiotic agents; Z88.2 Allergy status to sulfonamides; Z88.0 Allergy status to penicillin; Z88.5 Allergy status to narcotic agent; Z91.041 Radiographic dye allergy status
CPT/HCPCS: 74022; 96372; 99283; J1170

== ENCOUNTER 2016-05-17 06:48 | Outpatient (CLI) | payer OTHER ==
[~2016-05-17 06:48] MED LIST changes: +ONDANSETRON 4MG/2ML VIAL (J2405) IV ONE
[2016-05-17] MEDS ORDERED: MAGNESIUM SULFATE 1 GM/100 ML D5W BAG (10MG/ML) (J3475) IV SCH (07:00)
[2016-05-17] MEDS ORDERED: SODIUM CHLORIDE 0.9% INJ 10 ML SYR IV SCH (09:00)
== END 2016-05-17 11:30 | disposition home or self-care (01) ==
LOC: M INFU 06:48
PROVIDERS: ATTEND Family Medicine
DX: E83.42 Hypomagnesemia (principal); Z79.899 Other long term (current) drug therapy; Z79.4 Long term (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; Z88.1 Allergy status to other antibiotic agents; Z88.8 Allergy status to other drugs, medicaments and biological substances; Z88.5 Allergy status to narcotic agent; Z88.0 Allergy status to penicillin; Z91.02 Food additives allergy status; Z91.018 Allergy to other foods; Z91.048 Other nonmedicinal substance allergy status; Z91.040 Latex allergy status
CPT/HCPCS: 96365; 96366; 96375; J2405; J3475

== ENCOUNTER 2016-05-22 06:42 | Outpatient (CLI) | payer OTHER ==
[~2016-05-22] VITALS: Ht 170.2 cm; Wt 767.1 kg
[~2016-05-22 06:42] MED LIST changes: +SODIUM CHLORIDE 0.9% INJ 10 ML SYR IV SCH
== END 2016-05-22 07:35 | disposition home or self-care (01) ==
LOC: M INFU 06:42
PROVIDERS: ATTEND Family Medicine
DX: E83.42 Hypomagnesemia (principal); Z79.899 Other long term (current) drug therapy; Z79.4 Long term (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; Z88.1 Allergy status to other antibiotic agents; Z88.5 Allergy status to narcotic agent; Z91.02 Food additives allergy status; Z91.018 Allergy to other foods; Z91.048 Other nonmedicinal substance allergy status; Z88.0 Allergy status to penicillin
CPT/HCPCS: 36415; 83735; 96365; J2405

== ENCOUNTER 2016-05-23 14:13 | Emergency (ER) | payer OTHER ==
[~2016-05-23 14:13] MED LIST changes: -ONDANSETRON 4MG/2ML VIAL (J2405) IV ONE; -SODIUM CHLORIDE 0.9% INJ 10 ML SYR IV SCH
[2016-05-23] MEDS ORDERED: ONDANSETRON 4MG/2ML VIAL (J2405) As Ordered ONE (17:03)
[2016-05-23] MEDS ORDERED: HYDROmorphone HCL 1 MG/ML SYRINGE (J1170) As Ordered ONE (17:03)
[2016-05-23 17:54] LABS: BASO % 0.2 % (0.0-1.0); EOS % 0.8 % (0.0-3.0); LARGE UNSTAINED CELL # 0.1 K/mm3 (0.0-0.4); LYMPH # 1.9 K/mm3 (1.5-4.5); LYMPH % 29.1 % (24.0-44.0); MEAN CORPUSCULAR HEMOGLOBIN 29.8 pg (27.0-33.0); MEAN CORPUSCULAR HGB CONC 31.4 g/dl (32.0-36.5); MEAN CORPUSCULAR VOLUME 95.1 fl (80.0-96.0); MONO # 0.4 K/mm3 (0.0-0.8); MONO % 6.6 % (0.0-5.0); NEUTROPHILS # 3.9 K/mm3 (1.8-7.7); NEUTROPHILS % 61.3 % (36.0-66.0); PLATELET COUNT, AUTOMATED 311 k/mm3 (150-450); RED CELL DISTRIBUTION WIDTH 13.7 % (11.5-14.5); WHITE BLOOD COUNT 6.4 K/mm3 (4.0-10.0)
[2016-05-23 18:24] LABS: BLOOD UREA NITROGEN 16 MG/DL (7-18); CREATININE FOR GFR 0.61 MG/DL (0.55-1.02); GLUCOSE, FASTING 161 MG/DL (70-105)
[2016-05-23 18:25] LABS: ALBUMIN 3.8 GM/DL (3.2-5.2); ALBUMIN/GLOBULIN RATIO 0.95 (1.00-1.93); ALKALINE PHOSPHATASE 123 U/L (45-117); ALT/SGPT 27 U/L (12-78); AMYLASE 36 U/L (25-115); ANION GAP 8 MEQ/L (8-16); AST/SGOT 14 U/L (15-37); BILIRUBIN,DIRECT < 0.1 MG/DL (0.0-0.2); BILIRUBIN,TOTAL 0.1 MG/DL (0.2-1.0); CALCIUM LEVEL 10.9 MG/DL (8.5-10.1); CARBON DIOXIDE LEVEL 29 MEQ/L (21-32); CHLORIDE LEVEL 104 MEQ/L (98-107); GLOMERULAR FILTRATION RATE > 60.0 (>51); POTASSIUM SERUM 4.3 MEQ/L (3.5-5.1); SODIUM LEVEL 141 MEQ/L (136-145); TOTAL PROTEIN 7.8 GM/DL (6.4-8.2)
--- NOTE | 2016-05-23 18:38 | REP ---
ABDOMEN: Two views of the abdomen were performed and compared to prior study of 05/15/2016. There is a nonobstructive bowel gas pattern. Ostomy is seen in the left lower quadrant. Diffuse metallic clips are seen throughout the abdomen and pelvis. Dorsal column stimulator is noted. IMPRESSION: No change since prior study. Nonobstructive bowel gas pattern. Signed by Geovanni Camejo MD 05/23/2016 08:15 P
--- NOTE | 2016-05-23 18:54 | EDDOCDS ---
Physician Documentation [facility] Name: Rich Olson Age: 55 yrs Sex: Female : 1960 Arrival Date: 05/23/2016 Time: 14:13 Bed I4 / M4 Private MD: Tutu Sanchez MD Disposition: 05/23/16 18:35 Discharged to Home/Self Care. Impression: Left lower quadrant abdominal tenderness. - Condition is Stable. - Discharge Instructions: Abdominal Pain, Adult. - Medication Reconciliation, Local Pharmacy Hours form. - Follow up: Tutu Sanchez; When: Call to arrange an appointment; Reason: Recheck today's complaints, Continuance of care. - Problem is an acute exacerbation. - Symptoms have improved. Historical: - Allergies: Albuterol (shaky); Aspirin (stomach irritation); Ativan (hallucination); Azithromycin (Hives); BACLOFEN (shakiness); Chlorpromazine (shakiness); Ciprofloxacin (Hives); Codeine Phosphate (anxious); Colchicine (anxious); Darvocet-N 100 (nervous); Droperidol (Dystonic reaction); Fentanyl (nervous); Fluphenazine; GABAPENTIN (Rash); Gabitril (nervous); hydrocodone (confusion); IODINEIODINE CONTAINING ("body our of control"); Ipratropium [place]; Latex (Anaphylaxis); Lidoderm (Rash); Lyrica (nervous); Macrobid (shaky); Meperidine (Sleepy); mesoridazine; Midazolam (shaky and jumpy); Morphine (severe RAMIREZ); Oxycodone HCl (Hives); PENICILLINS (Hives); perphenazine (nervous); Phenergan (nervous); Prochlorperazine Maleate; Promethazine (Dystonic reaction); QUINOLONES (shaky, itchy); Readi-Cat 2; Red Dye; SULFA (SULFONAMIDES) (Hives); Tape (Rash); Theophylline (Seizures); TIAGABINE; Tramadol HCl (nervous); Trifluoperazine; Vicodin (shaky, nervous); - Home Meds: 1. amitriptyline 50 mg Oral tab 1 tab once daily 1 tab in am , 3 tabs at bedtime (Last dose: 05/23/2016 07:00) 2. astelin 137mcg/spray twice a day (Last dose: 05/23/2016 07:00) 3. Carafate 1 gram Oral tab 1 tab 4 times per day (Last dose: 05/23/2016 12:00) 4. cetirizine 10 mg oral tab 1 tab once daily (Last dose: 05/23/2016 07:00) 5. Dilaudid 4 mg Oral tab 1 tab every 4 hours (Last dose: 05/23/2016 13:00) 6. gemfibrozil 600 mg Oral tab daily (Last dose: 05/23/2016 07:00) 7. Glucerna Oral liqd daily (Last dose: 05/23/2016 12:00) 8. heparin flush fro port (Last dose: 05/22/2016) 9. Levemir 30 units subcutaneous daily (Last dose: 05/23/2016 07:00) 10. magnesium oxide 400 mg Oral tab 400 mg three times a day (Last dose: 05/23/2016 12:00) 11. Nasacort AQ 55 mcg Nasal spra 1 spray nightly (Last dose: 05/22/2016) 12. Novolog 20 units Sub-Q daily (Last dose: 05/23/2016 12:00) 13. ranitidine HCl 150 mg Oral tbef 150 mg twice a day (Last dose: 05/23/2016 07:00) 14. Reglan 10 mg Oral tab 1 tab 30 mins before meals (Last dose: 05/23/2016 12:00) 15. Symbicort 160-4.5 mcg/actuation inhalation HFAA 2 puffs 2 times per day (Last dose: 05/23/2016 07:00) 16. tizanidine 2 mg oral tab 1 tabs BID PRN (Last dose: Unknown) 17. Zofran IM 4 mg every 8 hours (Last dose: 05/23/2016 07:00) - PMHx: acute bronchitis; Asthma; chronic abdominal pain; chronic pain syndrome; Diabetes - IDDM: controlled; DVT; Fatty Liver, Non-alchoholic; GERD; Hernia; Hypercholesterolemia; hypokalemia; hypomagnesia; Kidney stones; necrotic bowel; UTI; - PSHx: Cholecystectomy; Lumpectomy- Left; Lumpectomy- Right; bilateral knee surgery; Appendectomy; Hysterectomy; Ileostomy Construction; av fistula left leg; tumors removed from right arm; tumors removed from scalp; infusaport right anterior chest; - Social history: Smoking status: Patient states was never smoker of tobacco. No barriers to communication noted, The patient speaks fluent Macedonian. - Family history: Not pertinent. - : The pt / caregiver states he / she is not on anticoagulants. Home medication list is obtained from the patient. - Exposure Risk Screening:: None identified. 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 7 in. (170.18 cm) (R); Pain 9/10; 18:27 Pain 2/10; kr3 18:37 BP 141 / 80; Pulse 76; Resp 18; Temp 96.7(TE); Pulse Ox 95% on R/A; Pain 2/10; nb2 14:15 Body Mass Index 26.00 (75.30 kg, 170.18 cm) gr2 MDM: 16:45 [facility] Payment Agreement was scanned into [employer] and attached to record. [facility] 16:51 Financial registration complete. gjb 16:58 Ondansetron 4 mg IM once ordered. mo1 16:59 Amylase Ordered. EDMS 16:59 Basic Metabolic Profile Ordered. EDMS 16:59 CBC with Diff Ordered. EDMS 16:59 Lipase Ordered. EDMS 16:59 Liver Profile Ordered. EDMS 16:59 NOTHING BY MOUTH+DIET ordered. EDMS 16:59 Abdomen 2 View Ordered. EDMS 17:00 Dilaudid - HYDROmorphone 1 mg IM once ordered. mo1 17:01 Lactic Acid (Camejo tube on ice) Ordered. EDMS 18:07 CBC with Diff Reviewed. mo1 18:33 Amylase Reviewed. mo1 18:33 Lipase Reviewed. mo1 18:33 Liver Profile Reviewed. mo1 18:34 Basic Metabolic Profile Reviewed. mo1 18:34 Lactic Acid (Camejo tube on ice) Reviewed. mo1 Administered Medications: 17:08 Drug: Ondansetron 4 mg [ondansetron HCl 2 mg/mL intravenous solution (2 mL)] Route: IM; kr3 Site: left deltoid; 17:08 Drug: Dilaudid - HYDROmorphone 1 mg [hydromorphone 1 mg/mL injection syringe (1 mL)] kr3 Route: IM; Site: right deltoid; 18:27 Follow up: Pain 05/24 Adult kr3 Signatures: Dispatcher [employer] Alma Rizo RN RN kpj Yesika Hurst RN RN rs3 Vladislav Moreno PA PA mo1 Beck, Gabriela gjb Robie, Kathleen RN kr3 The chart was reviewed and I authenticate all verbal orders and agree with the evaluation and treatment provided.Attachments: 16:45 [facility] Payment Agreement klaus MTDD
--- NOTE | 2016-05-23 18:54 | EDDOCDS ---
Nurse's Notes [facility] Name: Rich Olson Age: 55 yrs Sex: Female : 1960 Arrival Date: 05/23/2016 Time: 14:13 Bed I4 / M4 Private MD: Tutu Sanchez MD Diagnosis: Left lower quadrant abdominal tenderness Presentation: 05/23 14:26 Presenting complaint: Patient states: abdominal pain x 2 days went to her PCP yesterday [facility] and got a shot of toradol, pain not improved .Is going to Hernia repair 06-11-16. Risk factors: the patient reports no vaginal bleeding. Adult Sepsis Screening: The patient does not have new or worsening altered mentation. Patient's respiratory rate is less than 22. Systolic blood pressure is greater than 100. Patient has a qSOFA score of 0- Negative Sepsis Screen. Suicide/Homicide risk assessment- the patient denies having any suicidal and/or homicidal ideations and does not present with any other emotional, behavioral or mental health complaints. 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 Transition of care: patient was not received from another setting of care. 14:26 Acuity: THADDEUS Level 4 [facility] 14:26 Method Of Arrival: Walkin/Carried/Asstd [facility] 17:00 Acuity level changed due to complexity of care. [facility] 17:00 Acuity: THADDEUS Level 3 [facility] Triage Assessment: 14:38 General: Appears in no apparent distress, Behavior is appropriate for age, pleasant. [facility] Pain: Location: left lower quadrant Pain currently is 10 out of 10 on a pain scale. HIV screening NA for this visit Offered previously. Neurological: Level of Consciousness is awake, alert, Oriented to person, place, time. Respiratory: Airway is patent Respiratory effort is even, unlabored, Respiratory pattern is regular, symmetrical. GI: Reports lower abdominal pain, Pain is 10 out of 10 on a pain scale. Derm: Skin is pink, warm & dry. OPERATIONS ASST: 14:38 LMP N/A - Hysterectomy [facility] Historical: - Allergies: Albuterol (shaky); Aspirin (stomach irritation); Ativan (hallucination); Azithromycin (Hives); BACLOFEN (shakiness); Chlorpromazine (shakiness); Ciprofloxacin (Hives); Codeine Phosphate (anxious); Colchicine (anxious); Darvocet-N 100 (nervous); Droperidol (Dystonic reaction); Fentanyl (nervous); Fluphenazine; GABAPENTIN (Rash); Gabitril (nervous); hydrocodone (confusion); IODINEIODINE CONTAINING ("body our of control"); Ipratropium [place]; Latex (Anaphylaxis); Lidoderm (Rash); Lyrica (nervous); Macrobid (shaky); Meperidine (Sleepy); mesoridazine; Midazolam (shaky and jumpy); Morphine (severe RAMIREZ); Oxycodone HCl (Hives); PENICILLINS (Hives); perphenazine (nervous); Phenergan (nervous); Prochlorperazine Maleate; Promethazine (Dystonic reaction); QUINOLONES (shaky, itchy); Readi-Cat 2; Red Dye; SULFA (SULFONAMIDES) (Hives); Tape (Rash); Theophylline (Seizures); TIAGABINE; Tramadol HCl (nervous); Trifluoperazine; Vicodin (shaky, nervous); - Home Meds: 1. amitriptyline 50 mg Oral tab 1 tab once daily 1 tab in am , 3 tabs at bedtime (Last dose: 05/23/2016 07:00) 2. astelin 137mcg/spray twice a day (Last dose: 05/23/2016 07:00) 3. Carafate 1 gram Oral tab 1 tab 4 times per day (Last dose: 05/23/2016 12:00) 4. cetirizine 10 mg oral tab 1 tab once daily (Last dose: 05/23/2016 07:00) 5. Dilaudid 4 mg Oral tab 1 tab every 4 hours (Last dose: 05/23/2016 13:00) 6. gemfibrozil 600 mg Oral tab daily (Last dose: 05/23/2016 07:00) 7. Glucerna Oral liqd daily (Last dose: 05/23/2016 12:00) 8. heparin flush fro port (Last dose: 05/22/2016) 9. Levemir 30 units subcutaneous daily (Last dose: 05/23/2016 07:00) 10. magnesium oxide 400 mg Oral tab 400 mg three times a day (Last dose: 05/23/2016 12:00) 11. Nasacort AQ 55 mcg Nasal spra 1 spray nightly (Last dose: 05/22/2016) 12. Novolog 20 units Sub-Q daily (Last dose: 05/23/2016 12:00) 13. ranitidine HCl 150 mg Oral tbef 150 mg twice a day (Last dose: 05/23/2016 07:00) 14. Reglan 10 mg Oral tab 1 tab 30 mins before meals (Last dose: 05/23/2016 12:00) 15. Symbicort 160-4.5 mcg/actuation inhalation HFAA 2 puffs 2 times per day (Last dose: 05/23/2016 07:00) 16. tizanidine 2 mg oral tab 1 tabs BID PRN (Last dose: Unknown) 17. Zofran IM 4 mg every 8 hours (Last dose: 05/23/2016 07:00) - PMHx: acute bronchitis; Asthma; chronic abdominal pain; chronic pain syndrome; Diabetes - IDDM: controlled; DVT; Fatty Liver, Non-alchoholic; GERD; Hernia; Hypercholesterolemia; hypokalemia; hypomagnesia; Kidney stones; necrotic bowel; UTI; - PSHx: Cholecystectomy; Lumpectomy- Left; Lumpectomy- Right; bilateral knee surgery; Appendectomy; Hysterectomy; Ileostomy Construction; av fistula left leg; tumors removed from right arm; tumors removed from scalp; infusaport right anterior chest; - Social history: Smoking status: Patient states was never smoker of tobacco. No barriers to communication noted, The patient speaks fluent Scottish. - Family history: Not pertinent. - : The pt / caregiver states he / she is not on anticoagulants. Home medication list is obtained from the patient. - Exposure Risk Screening:: None identified. Screenin:27 Screening information is obtained from the patient, the parent. Fall risk: At risk due kr3 to gait disturbance. Assistance ADL's: Requires assistance with meal preparation, this assistance is provided by family members, ambulation, assistance is provided by family members, housework, assistance is provided by family members, medication administration, assistance is provided by family members. Abuse/DV Screen: The patient / caregiver reports he/she is: not in a situation that causes fear, pain or injury. Nutritional screening: No deficits noted. Advance Directives: Currently, there is a health care proxy, mother. home support is adequate. Assessment: 17:09 General: Appears in no apparent distress, comfortable, Behavior is appropriate for age, kr3 cooperative. Pain: Location: left lower quadrant Pain currently is 10 out of 10 on a pain scale. Respiratory: Respiratory effort is even, unlabored. GI: Abdomen is obese, Abd is tender to palpation in left lower quadrant. Derm: Skin is normal. 18:27 Reassessment: Patient appears in no apparent distress at this time. Patient states kr3 feeling better. Pain: Pain currently is 2 out of 10 on a pain scale. 18:52 GI: Bowel sounds present X 4 quads. rs3 Vital Signs: 14:15 BP 127 / 73; Pulse 88; Resp 18 S; Temp 97.6(O); Pulse Ox 96% on R/A; Weight 75.3 kg gr2 (R); Height 5 ft. 7 in. (170.18 cm) (R); Pain 9/10; 18:27 Pain 2/10; kr3 18:37 BP 141 / 80; Pulse 76; Resp 18; Temp 96.7(TE); Pulse Ox 95% on R/A; Pain 2/10; nb2 14:15 Body Mass Index 26.00 (75.30 kg, 170.18 cm) gr2 Vitals: 14:15 Log In Time: May 23, 2016 at 14:15. gr2 ED Course: 14:14 Patient visited by Josephine Mckeon. gr2 14:14 Patient moved to Waiting gr2 14:15 Tutu Sanchez is Private Physician. gr2 14:16 Patient visited by Josephine Mckeon. gr2 14:16 Patient moved to Pre RCE gr2 14:29 Triage Initiated [facility] 16:18 Patient moved to Triage 2 mdr 16:36 Vladislav Moreno PA is PHCP. mo1 16:36 Roshni Solano MD is Attending Physician. mo1 16:45 [facility] [place] Payment Agreement was scanned into [employer] and attached to record. gjb 16:49 Patient visited by Vladislav Moreno PA. mo1 17:01 Patient moved to I4 / M4 [facility] 17:09 The patient / caregiver is instructed regarding the plan of care and ED course. kr3 Accompanied by Family Member, Patient has correct armband on for positive identification. Placed in gown. Bed in low position. Call light in reach. Side rails up X2. 17:52 Patient visited by Mitzy Epps RN. kr3 18:27 Patient visited by Mitzy Epps RN. kr3 18:35 Tutu Sanchez is Referral Physician. mo1 18:52 No IV's were initiated during this patient's visit. No procedures done that require rs3 assistance. Administered Medications: 17:08 Drug: Ondansetron 4 mg [ondansetron HCl 2 mg/mL intravenous solution (2 mL)] Route: IM; kr3 Site: left deltoid; 17:08 Drug: Dilaudid - HYDROmorphone 1 mg [hydromorphone 1 mg/mL injection syringe (1 mL)] kr3 Route: IM; Site: right deltoid; 18:27 Follow up: Pain 05/24 Adult kr3 Order Results: Lab Order: Amylase; SPEC'M 05/23/16 17:34 Test: AMYLASE; Value: 36; Range: 25-115; Units: U/L; Status: F Lab Order: Basic Metabolic Profile; SPEC'M 05/23/16 17:34 Test: GLUCOSE, FASTING; Value: 161; Range: 70-105; Abnormal: Above high normal; Units: MG/DL; Status: F Test: BLOOD UREA NITROGEN; Value: 16; Range: 7-18; Units: MG/DL; Status: F Test: CREATININE FOR GFR; Value: 0.61; Range: 0.55-1.02; Units: MG/DL; Status: F Test: GLOMERULAR FILTRATION RATE; Value: > 60.0; Range: >51; Status: F Test: SODIUM LEVEL; Value: 141; Range: 136-145; Units: MEQ/L; Status: F Test: POTASSIUM SERUM; Value: 4.3; Range: 3.5-5.1; Units: MEQ/L; Status: F Test: CHLORIDE LEVEL; Value: 104; Range: 98-107; Units: MEQ/L; Status: F Test: CARBON DIOXIDE LEVEL; Value: 29; Range: 21-32; Units: MEQ/L; Status: F Test: ANION GAP; Value: 8; Range: 8-16; Units: MEQ/L; Status: F Test: CALCIUM LEVEL; Value: 10.9; Range: 8.5-10.1; Abnormal: Above high normal; Units: MG/DL; Status: F Test Note: ; Units are mL/min/1.73 m2 Chronic Kidney Disease Staging per NKF: Stage I & II GFR >=60 Normal to Mildly Decreased Stage III GFR 30-59 Moderately Decreased Stage IV GFR 15-29 Severely Decreased Stage V GFR <15 Very Little GFR Left ESRD GFR <15 on GRIEVANCE MANAGER Lab Order: CBC with Diff; SPEC'M 05/23/16 17:34 Test: WHITE BLOOD COUNT; Value: 6.4; Range: 4.0-10.0; Units: K/mm3; Status: F Test: RED BLOOD COUNT; Value: 4.16; Range: 4.00-5.40; Units: M/mm3; Status: F Test: HEMOGLOBIN; Value: 12.4; Range: 12.0-16.0; Units: g/dl; Status: F Test: HEMATOCRIT; Value: 39.5; Range: 36.0-47.0; Units: %; Status: F Test: MEAN CORPUSCULAR VOLUME; Value: 95.1; Range: 80.0-96.0; Units: fl; Status: F Test: MEAN CORPUSCULAR HEMOGLOBIN; Value: 29.8; Range: 27.0-33.0; Units: pg; Status: F Test: MEAN CORPUSCULAR HGB CONC; Value: 31.4; Range: 32.0-36.5; Abnormal: Below low normal; Units: g/dl; Status: F Test: RED CELL DISTRIBUTION WIDTH; Value: 13.7; Range: 11.5-14.5; Units: %; Status: F Test: PLATELET COUNT, AUTOMATED; Value: 311; Range: 150-450; Units: k/mm3; Status: F Test: NEUTROPHILS %; Value: 61.3; Range: 36.0-66.0; Units: %; Status: F Test: LYMPH %; Value: 29.1; Range: 24.0-44.0; Units: %; Status: F Test: MONO %; Value: 6.6; Range: 0.0-5.0; Abnormal: Above high normal; Units: %; Status: F Test: EOS %; Value: 0.8; Range: 0.0-3.0; Units: %; Status: F Test: BASO %; Value: 0.2; Range: 0.0-1.0; Units: %; Status: F Test: LARGE UNSTAINED CELL %; Value: 2.0; Range: 0.0-4.0; Units: %; Status: F Test: NEUTROPHILS #; Value: 3.9; Range: 1.8-7.7; Units: K/mm3; Status: F Test: LYMPH #; Value: 1.9; Range: 1.5-4.5; Units: K/mm3; Status: F Test: MONO #; Value: 0.4; Range: 0.0-0.8; Units: K/mm3; Status: F Test: EOS #; Value: 0.0; Range: 0.0-0.50; Units: K/mm3; Status: F Test: BASO #; Value: 0.0; Range: 0.0-0.2; Units: K/mm3; Status: F Test: LARGE UNSTAINED CELL #; Value: 0.1; Range: 0.0-0.4; Units: K/mm3; Status: F Lab Order: Lipase; SPEC' 05/23/16 17:34 Test: LIPASE; Value: 209; Range: 73-393; Units: U/L; Status: F Lab Order: Liver Profile; [facility] 05/23/16 17:34 Test: AST/SGOT; Value: 14; Range: 15-37; Abnormal: Below low normal; Units: U/L; Status: F Test: ALT/SGPT; Value: 27; Range: 12-78; Units: U/L; Status: F Test: ALKALINE PHOSPHATASE; Value: 123; Range: 45-117; Abnormal: Above high normal; Units: U/L; Status: F Test: BILIRUBIN,TOTAL; Value: 0.1; Range: 0.2-1.0; Abnormal: Below low normal; Units: MG/DL; Status: F Test: BILIRUBIN,DIRECT; Value: < 0.1; Range: 0.0-0.2; Units: MG/DL; Status: F Test: TOTAL PROTEIN; Value: 7.8; Range: 6.4-8.2; Units: GM/DL; Status: F Test: ALBUMIN; Value: 3.8; Range: 3.2-5.2; Units: GM/DL; Status: F Test: ALBUMIN/GLOBULIN RATIO; Value: 0.95; Range: 1.00-1.93; Abnormal: Below low normal; Status: F Lab Order: Lactic Acid (Camejo tube on ice); SPEC'M 05/23/16 17:34 Test: LACTIC ACID SEPSIS PROTOCOL; Value: 1.6; Range: 0.4-2.0; Units: MMOL/L; Status: F Outcome: 18:35 Discharge ordered by Provider. mo1 18:52 Discharge Assessment: patient administered narcotics - yes. Pt provided with safe rs3 discharge. The following High Risk Discharge criteria are identified: None. Discharged to home with family. Condition: stable. Discharge instructions given to patient, family, Instructed on discharge instructions, follow up and referral plans. medication usage, Demonstrated understanding of instructions, medications, Pt was receptive of discharge instructions/ teaching. No special radiology studies were completed. Property :Personal belongings accompany Pt. 18:54 Patient left the ED. rs3 Signatures: Alma Roy RN RN brendaj Mitzy Epps,RN RN kr3 Yesika HurstRN RN rs3 Josephine Mckeon2 Vladislav Moreno PA PA mo1 Chivo Lewis, Karmen Alan Nicole nb2 MTDD
--- NOTE | 2016-05-25 19:55 | EDDOCDS ---
Physician Documentation [facility] Name: Rich Olson Age: 55 yrs Sex: Female : 1960 Arrival Date: 05/23/2016 Time: 14:13 Bed I4 / M4 Private MD: Tutu Sanchez MD Disposition: 05/23/16 18:35 Discharged to Home/Self Care. Impression: Left lower quadrant abdominal tenderness. - Condition is Stable. - Discharge Instructions: Abdominal Pain, Adult. - Medication Reconciliation, Local Pharmacy Hours form. - Follow up: Tutu Sanchez; When: Call to arrange an appointment; Reason: Recheck today's complaints, Continuance of care. - Problem is an acute exacerbation. - Symptoms have improved. Historical: - Allergies: Albuterol (shaky); Aspirin (stomach irritation); Ativan (hallucination); Azithromycin (Hives); BACLOFEN (shakiness); Chlorpromazine (shakiness); Ciprofloxacin (Hives); Codeine Phosphate (anxious); Colchicine (anxious); Darvocet-N 100 (nervous); Droperidol (Dystonic reaction); Fentanyl (nervous); Fluphenazine; GABAPENTIN (Rash); Gabitril (nervous); hydrocodone (confusion); IODINEIODINE CONTAINING ("body our of control"); Ipratropium [place]; Latex (Anaphylaxis); Lidoderm (Rash); Lyrica (nervous); Macrobid (shaky); Meperidine (Sleepy); mesoridazine; Midazolam (shaky and jumpy); Morphine (severe RAMIREZ); Oxycodone HCl (Hives); PENICILLINS (Hives); perphenazine (nervous); Phenergan (nervous); Prochlorperazine Maleate; Promethazine (Dystonic reaction); QUINOLONES (shaky, itchy); Readi-Cat 2; Red Dye; SULFA (SULFONAMIDES) (Hives); Tape (Rash); Theophylline (Seizures); TIAGABINE; Tramadol HCl (nervous); Trifluoperazine; Vicodin (shaky, nervous); - Home Meds: 1. amitriptyline 50 mg Oral tab 1 tab once daily 1 tab in am , 3 tabs at bedtime (Last dose: 05/23/2016 07:00) 2. astelin 137mcg/spray twice a day (Last dose: 05/23/2016 07:00) 3. Carafate 1 gram Oral tab 1 tab 4 times per day (Last dose: 05/23/2016 12:00) 4. cetirizine 10 mg oral tab 1 tab once daily (Last dose: 05/23/2016 07:00) 5. Dilaudid 4 mg Oral tab 1 tab every 4 hours (Last dose: 05/23/2016 13:00) 6. gemfibrozil 600 mg Oral tab daily (Last dose: 05/23/2016 07:00) 7. Glucerna Oral liqd daily (Last dose: 05/23/2016 12:00) 8. heparin flush fro port (Last dose: 05/22/2016) 9. Levemir 30 units subcutaneous daily (Last dose: 05/23/2016 07:00) 10. magnesium oxide 400 mg Oral tab 400 mg three times a day (Last dose: 05/23/2016 12:00) 11. Nasacort AQ 55 mcg Nasal spra 1 spray nightly (Last dose: 05/22/2016) 12. Novolog 20 units Sub-Q daily (Last dose: 05/23/2016 12:00) 13. ranitidine HCl 150 mg Oral tbef 150 mg twice a day (Last dose: 05/23/2016 07:00) 14. Reglan 10 mg Oral tab 1 tab 30 mins before meals (Last dose: 05/23/2016 12:00) 15. Symbicort 160-4.5 mcg/actuation inhalation HFAA 2 puffs 2 times per day (Last dose: 05/23/2016 07:00) 16. tizanidine 2 mg oral tab 1 tabs BID PRN (Last dose: Unknown) 17. Zofran IM 4 mg every 8 hours (Last dose: 05/23/2016 07:00) - PMHx: acute bronchitis; Asthma; chronic abdominal pain; chronic pain syndrome; Diabetes - IDDM: controlled; DVT; Fatty Liver, Non-alchoholic; GERD; Hernia; Hypercholesterolemia; hypokalemia; hypomagnesia; Kidney stones; necrotic bowel; UTI; - PSHx: Cholecystectomy; Lumpectomy- Left; Lumpectomy- Right; bilateral knee surgery; Appendectomy; Hysterectomy; Ileostomy Construction; av fistula left leg; tumors removed from right arm; tumors removed from scalp; infusaport right anterior chest; - Social history: Smoking status: Patient states was never smoker of tobacco. No barriers to communication noted, The patient speaks fluent Romansh. - Family history: Not pertinent. - : The pt / caregiver states he / she is not on anticoagulants. Home medication list is obtained from the patient. - Exposure Risk Screening:: None identified. [employer] MEMBER: 05/23 14:38 LMP N/A - Hysterectomy [facility] Vital Signs: 14:15 BP 127 / 73; Pulse 88; Resp 18 S; Temp 97.6(O); Pulse Ox 96% on R/A; Weight 75.3 kg / gr2 166.01 lbs (R); Height 5 ft. 7 in. (170.18 cm) (R); Pain 9/10; 18:27 Pain 2/10; kr3 18:37 BP 141 / 80; Pulse 76; Resp 18; Temp 96.7(TE); Pulse Ox 95% on R/A; Pain 2/10; nb2 14:15 Body Mass Index 26.00 (75.30 kg, 170.18 cm) gr2 MDM: 16:45 [facility] Payment Agreement was scanned into [employer] and attached to record. [facility] 16:51 Financial registration complete. gjb 16:58 Ondansetron 4 mg IM once ordered. mo1 16:59 Amylase Ordered. EDMS 16:59 Basic Metabolic Profile Ordered. EDMS 16:59 CBC with Diff Ordered. EDMS 16:59 Lipase Ordered. EDMS 16:59 Liver Profile Ordered. EDMS 16:59 NOTHING BY MOUTH+DIET ordered. EDMS 16:59 Abdomen 2 View Ordered. EDMS 17:00 Dilaudid - HYDROmorphone 1 mg IM once ordered. mo1 17:01 Lactic Acid (Camejo tube on ice) Ordered. EDMS 18:07 CBC with Diff Reviewed. mo1 18:33 Amylase Reviewed. mo1 18:33 Lipase Reviewed. mo1 18:33 Liver Profile Reviewed. mo1 18:34 Basic Metabolic Profile Reviewed. mo1 18:34 Lactic Acid (Camejo tube on ice) Reviewed. mo1 05/24 11:31 T-Sheet-- Draft Copy was scanned into [employer] and attached to record. gb Administered Medications: 05/23 17:08 Drug: Ondansetron 4 mg [ondansetron HCl 2 mg/mL intravenous solution (2 mL)] Route: IM; kr3 Site: left deltoid; 17:08 Drug: Dilaudid - HYDROmorphone 1 mg [hydromorphone 1 mg/mL injection syringe (1 mL)] kr3 Route: IM; Site: right deltoid; 18:27 Follow up: Pain 05/24 Adult kr3 Signatures: Dispatcher [employer] EDMS Alma Roy RN RN brendaj Divya Perdomo, Reg Reg Yesika Moran RN RN rs3 Vladislav Moreno PA PA moKarmen Alvarado Kathleen RN kr3 The chart was reviewed and I authenticate all verbal orders and agree with the evaluation and treatment provided.Attachments: 16:45 [facility] Payment Agreement gjb 05/24 11:31 T-Sheet-- Draft Copy Chart Complete MTDD
--- NOTE | 2016-05-25 19:55 | EDDOCDS ---
Physician Documentation [facility] Name: Rich Olson Age: 55 yrs Sex: Female : 1960 Arrival Date: 05/23/2016 Time: 14:13 Bed I4 / M4 Private MD: Tutu Sanchez MD Disposition: 05/23/16 18:35 Discharged to Home/Self Care. Impression: Left lower quadrant abdominal tenderness. - Condition is Stable. - Discharge Instructions: Abdominal Pain, Adult. - Medication Reconciliation, Local Pharmacy Hours form. - Follow up: Tutu Sanchez; When: Call to arrange an appointment; Reason: Recheck today's complaints, Continuance of care. - Problem is an acute exacerbation. - Symptoms have improved. Historical: - Allergies: Albuterol (shaky); Aspirin (stomach irritation); Ativan (hallucination); Azithromycin (Hives); BACLOFEN (shakiness); Chlorpromazine (shakiness); Ciprofloxacin (Hives); Codeine Phosphate (anxious); Colchicine (anxious); Darvocet-N 100 (nervous); Droperidol (Dystonic reaction); Fentanyl (nervous); Fluphenazine; GABAPENTIN (Rash); Gabitril (nervous); hydrocodone (confusion); IODINEIODINE CONTAINING ("body our of control"); Ipratropium [place]; Latex (Anaphylaxis); Lidoderm (Rash); Lyrica (nervous); Macrobid (shaky); Meperidine (Sleepy); mesoridazine; Midazolam (shaky and jumpy); Morphine (severe RAMIREZ); Oxycodone HCl (Hives); PENICILLINS (Hives); perphenazine (nervous); Phenergan (nervous); Prochlorperazine Maleate; Promethazine (Dystonic reaction); QUINOLONES (shaky, itchy); Readi-Cat 2; Red Dye; SULFA (SULFONAMIDES) (Hives); Tape (Rash); Theophylline (Seizures); TIAGABINE; Tramadol HCl (nervous); Trifluoperazine; Vicodin (shaky, nervous); - Home Meds: 1. amitriptyline 50 mg Oral tab 1 tab once daily 1 tab in am , 3 tabs at bedtime (Last dose: 05/23/2016 07:00) 2. astelin 137mcg/spray twice a day (Last dose: 05/23/2016 07:00) 3. Carafate 1 gram Oral tab 1 tab 4 times per day (Last dose: 05/23/2016 12:00) 4. cetirizine 10 mg oral tab 1 tab once daily (Last dose: 05/23/2016 07:00) 5. Dilaudid 4 mg Oral tab 1 tab every 4 hours (Last dose: 05/23/2016 13:00) 6. gemfibrozil 600 mg Oral tab daily (Last dose: 05/23/2016 07:00) 7. Glucerna Oral liqd daily (Last dose: 05/23/2016 12:00) 8. heparin flush fro port (Last dose: 05/22/2016) 9. Levemir 30 units subcutaneous daily (Last dose: 05/23/2016 07:00) 10. magnesium oxide 400 mg Oral tab 400 mg three times a day (Last dose: 05/23/2016 12:00) 11. Nasacort AQ 55 mcg Nasal spra 1 spray nightly (Last dose: 05/22/2016) 12. Novolog 20 units Sub-Q daily (Last dose: 05/23/2016 12:00) 13. ranitidine HCl 150 mg Oral tbef 150 mg twice a day (Last dose: 05/23/2016 07:00) 14. Reglan 10 mg Oral tab 1 tab 30 mins before meals (Last dose: 05/23/2016 12:00) 15. Symbicort 160-4.5 mcg/actuation inhalation HFAA 2 puffs 2 times per day (Last dose: 05/23/2016 07:00) 16. tizanidine 2 mg oral tab 1 tabs BID PRN (Last dose: Unknown) 17. Zofran IM 4 mg every 8 hours (Last dose: 05/23/2016 07:00) - PMHx: acute bronchitis; Asthma; chronic abdominal pain; chronic pain syndrome; Diabetes - IDDM: controlled; DVT; Fatty Liver, Non-alchoholic; GERD; Hernia; Hypercholesterolemia; hypokalemia; hypomagnesia; Kidney stones; necrotic bowel; UTI; - PSHx: Cholecystectomy; Lumpectomy- Left; Lumpectomy- Right; bilateral knee surgery; Appendectomy; Hysterectomy; Ileostomy Construction; av fistula left leg; tumors removed from right arm; tumors removed from scalp; infusaport right anterior chest; - Social history: Smoking status: Patient states was never smoker of tobacco. No barriers to communication noted, The patient speaks fluent French. - Family history: Not pertinent. - : The pt / caregiver states he / she is not on anticoagulants. Home medication list is obtained from the patient. - Exposure Risk Screening:: None identified. 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 7 in. (170.18 cm) (R); Pain 9/10; 18:27 Pain 2/10; kr3 18:37 BP 141 / 80; Pulse 76; Resp 18; Temp 96.7(TE); Pulse Ox 95% on R/A; Pain 2/10; nb2 14:15 Body Mass Index 26.00 (75.30 kg, 170.18 cm) gr2 MDM: 16:45 [facility] Payment Agreement was scanned into Verisim and attached to record. [facility] 16:51 Financial registration complete. gjb 16:58 Ondansetron 4 mg IM once ordered. mo1 16:59 Amylase Ordered. EDMS 16:59 Basic Metabolic Profile Ordered. EDMS 16:59 CBC with Diff Ordered. EDMS 16:59 Lipase Ordered. EDMS 16:59 Liver Profile Ordered. EDMS 16:59 NOTHING BY MOUTH+DIET ordered. EDMS 16:59 Abdomen 2 View Ordered. EDMS 17:00 Dilaudid - HYDROmorphone 1 mg IM once ordered. mo1 17:01 Lactic Acid (Camejo tube on ice) Ordered. EDMS 18:07 CBC with Diff Reviewed. mo1 18:33 Amylase Reviewed. mo1 18:33 Lipase Reviewed. mo1 18:33 Liver Profile Reviewed. mo1 18:34 Basic Metabolic Profile Reviewed. mo1 18:34 Lactic Acid (Camejo tube on ice) Reviewed. mo1 05/24 11:31 T-Sheet-- Draft Copy was scanned into Verisim and attached to record. gb Administered Medications: 05/23 17:08 Drug: Ondansetron 4 mg [ondansetron HCl 2 mg/mL intravenous solution (2 mL)] Route: IM; kr3 Site: left deltoid; 17:08 Drug: Dilaudid - HYDROmorphone 1 mg [hydromorphone 1 mg/mL injection syringe (1 mL)] kr3 Route: IM; Site: right deltoid; 18:27 Follow up: Pain 05/24 Adult kr3 Signatures: Dispatcher MedHost EDMS Alma Roy RN RN brendaj Divya Perdomo, Reg Reg Yesika Moran RN RN rs3 Vladislav Moreno PA PA moKarmen Alvarado Kathleen RN kr3 The chart was reviewed and I authenticate all verbal orders and agree with the evaluation and treatment provided.Attachments: 16:45 [facility] Payment Agreement gjb 05/24 11:31 T-Sheet-- Draft Copy Chart Complete MTDD
--- NOTE | 2016-05-25 19:55 | EDDOCDS ---
Nurse's Notes [facility] Name: Rich Olson Age: 55 yrs Sex: Female : 1960 Arrival Date: 05/23/2016 Time: 14:13 Bed I4 / M4 Private MD: Tutu Sanchez MD Diagnosis: Left lower quadrant abdominal tenderness Presentation: 05/23 14:26 Presenting complaint: Patient states: abdominal pain x 2 days went to her PCP yesterday [facility] and got a shot of toradol, pain not improved .Is going to Hernia repair 06-11-16. Risk factors: the patient reports no vaginal bleeding. Adult Sepsis Screening: The patient does not have new or worsening altered mentation. Patient's respiratory rate is less than 22. Systolic blood pressure is greater than 100. Patient has a qSOFA score of 0- Negative Sepsis Screen. Suicide/Homicide risk assessment- the patient denies having any suicidal and/or homicidal ideations and does not present with any other emotional, behavioral or mental health complaints. 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 Transition of care: patient was not received from another setting of care. 14:26 Acuity: THADDEUS Level 4 [facility] 14:26 Method Of Arrival: Walkin/Carried/Asstd [facility] 17:00 Acuity level changed due to complexity of care. [facility] 17:00 Acuity: THADDEUS Level 3 [facility] Triage Assessment: 14:38 General: Appears in no apparent distress, Behavior is appropriate for age, pleasant. [facility] Pain: Location: left lower quadrant Pain currently is 10 out of 10 on a pain scale. HIV screening NA for this visit Offered previously. Neurological: Level of Consciousness is awake, alert, Oriented to person, place, time. Respiratory: Airway is patent Respiratory effort is even, unlabored, Respiratory pattern is regular, symmetrical. GI: Reports lower abdominal pain, Pain is 10 out of 10 on a pain scale. Derm: Skin is pink, warm & dry. 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 - Hysterectomy [facility] Historical: - Allergies: Albuterol (shaky); Aspirin (stomach irritation); Ativan (hallucination); Azithromycin (Hives); BACLOFEN (shakiness); Chlorpromazine (shakiness); Ciprofloxacin (Hives); Codeine Phosphate (anxious); Colchicine (anxious); Darvocet-N 100 (nervous); Droperidol (Dystonic reaction); Fentanyl (nervous); Fluphenazine; GABAPENTIN (Rash); Gabitril (nervous); hydrocodone (confusion); IODINEIODINE CONTAINING ("body our of control"); Ipratropium [place]; Latex (Anaphylaxis); Lidoderm (Rash); Lyrica (nervous); Macrobid (shaky); Meperidine (Sleepy); mesoridazine; Midazolam (shaky and jumpy); Morphine (severe RAMIREZ); Oxycodone HCl (Hives); PENICILLINS (Hives); perphenazine (nervous); Phenergan (nervous); Prochlorperazine Maleate; Promethazine (Dystonic reaction); QUINOLONES (shaky, itchy); Readi-Cat 2; Red Dye; SULFA (SULFONAMIDES) (Hives); Tape (Rash); Theophylline (Seizures); TIAGABINE; Tramadol HCl (nervous); Trifluoperazine; Vicodin (shaky, nervous); - Home Meds: 1. amitriptyline 50 mg Oral tab 1 tab once daily 1 tab in am , 3 tabs at bedtime (Last dose: 05/23/2016 07:00) 2. astelin 137mcg/spray twice a day (Last dose: 05/23/2016 07:00) 3. Carafate 1 gram Oral tab 1 tab 4 times per day (Last dose: 05/23/2016 12:00) 4. cetirizine 10 mg oral tab 1 tab once daily (Last dose: 05/23/2016 07:00) 5. Dilaudid 4 mg Oral tab 1 tab every 4 hours (Last dose: 05/23/2016 13:00) 6. gemfibrozil 600 mg Oral tab daily (Last dose: 05/23/2016 07:00) 7. Glucerna Oral liqd daily (Last dose: 05/23/2016 12:00) 8. heparin flush fro port (Last dose: 05/22/2016) 9. Levemir 30 units subcutaneous daily (Last dose: 05/23/2016 07:00) 10. magnesium oxide 400 mg Oral tab 400 mg three times a day (Last dose: 05/23/2016 12:00) 11. Nasacort AQ 55 mcg Nasal spra 1 spray nightly (Last dose: 05/22/2016) 12. Novolog 20 units Sub-Q daily (Last dose: 05/23/2016 12:00) 13. ranitidine HCl 150 mg Oral tbef 150 mg twice a day (Last dose: 05/23/2016 07:00) 14. Reglan 10 mg Oral tab 1 tab 30 mins before meals (Last dose: 05/23/2016 12:00) 15. Symbicort 160-4.5 mcg/actuation inhalation HFAA 2 puffs 2 times per day (Last dose: 05/23/2016 07:00) 16. tizanidine 2 mg oral tab 1 tabs BID PRN (Last dose: Unknown) 17. Zofran IM 4 mg every 8 hours (Last dose: 05/23/2016 07:00) - PMHx: acute bronchitis; Asthma; chronic abdominal pain; chronic pain syndrome; Diabetes - IDDM: controlled; DVT; Fatty Liver, Non-alchoholic; GERD; Hernia; Hypercholesterolemia; hypokalemia; hypomagnesia; Kidney stones; necrotic bowel; UTI; - PSHx: Cholecystectomy; Lumpectomy- Left; Lumpectomy- Right; bilateral knee surgery; Appendectomy; Hysterectomy; Ileostomy Construction; av fistula left leg; tumors removed from right arm; tumors removed from scalp; infusaport right anterior chest; - Social history: Smoking status: Patient states was never smoker of tobacco. No barriers to communication noted, The patient speaks fluent [place] Citizen. - Family history: Not pertinent. - : The pt / caregiver states he / she is not on anticoagulants. Home medication list is obtained from the patient. - Exposure Risk Screening:: None identified. Screenin:27 Screening information is obtained from the patient, the parent. Fall risk: At risk due kr3 to gait disturbance. Assistance ADL's: Requires assistance with meal preparation, this assistance is provided by family members, ambulation, assistance is provided by family members, housework, assistance is provided by family members, medication administration, assistance is provided by family members. Abuse/DV Screen: The patient / caregiver reports he/she is: not in a situation that causes fear, pain or injury. Nutritional screening: No deficits noted. Advance Directives: Currently, there is a health care proxy, mother. home support is adequate. Assessment: 17:09 General: Appears in no apparent distress, comfortable, Behavior is appropriate for age, kr3 cooperative. Pain: Location: left lower quadrant Pain currently is 10 out of 10 on a pain scale. Respiratory: Respiratory effort is even, unlabored. GI: Abdomen is obese, Abd is tender to palpation in left lower quadrant. Derm: Skin is normal. 18:27 Reassessment: Patient appears in no apparent distress at this time. Patient states kr3 feeling better. Pain: Pain currently is 2 out of 10 on a pain scale. 18:52 GI: Bowel sounds present X 4 quads. rs3 Vital Signs: 14:15 BP 127 / 73; Pulse 88; Resp 18 S; Temp 97.6(O); Pulse Ox 96% on R/A; Weight 75.3 kg gr2 (R); Height 5 ft. 7 in. (170.18 cm) (R); Pain 9/10; 18:27 Pain 2/10; kr3 18:37 BP 141 / 80; Pulse 76; Resp 18; Temp 96.7(TE); Pulse Ox 95% on R/A; Pain 2/10; nb2 14:15 Body Mass Index 26.00 (75.30 kg, 170.18 cm) gr2 Vitals: 14:15 Log In Time: May 23, 2016 at 14:15. gr2 ED Course: 14:14 Patient visited by Josephine Mckeon. gr2 14:14 Patient moved to Waiting gr2 14:15 Tutu Sanchez is Private Physician. gr2 14:16 Patient visited by Josephine Mckeon. gr2 14:16 Patient moved to Pre RCE gr2 14:29 Triage Initiated [facility] 16:18 Patient moved to Triage 2 mdr 16:36 Vladislav Moreno PA is PHCP. mo1 16:36 Roshni Solano MD is Attending Physician. mo1 16:45 [facility] Payment Agreement was scanned into KIWATCH and attached to record. gjb 16:49 Patient visited by Vladislav Moreno PA. mo1 17:01 Patient moved to I4 / M4 [facility] 17:09 The patient / caregiver is instructed regarding the plan of care and ED course. kr3 Accompanied by Family Member, Patient has correct armband on for positive identification. Placed in gown. Bed in low position. Call light in reach. Side rails up X2. 17:52 Patient visited by Mitzy Epps,CORIE. kr3 18:27 Patient visited by Mitzy Epps RN. kr3 18:35 Tutu Sanchez is Referral Physician. mo1 18:52 No IV's were initiated during this patient's visit. No procedures done that require rs3 assistance. 19:17 Abdomen 2 View Returned. EDMS 05/24 11:31 T-Sheet-- Draft Copy was scanned into KIWATCH and attached to record. gb Administered Medications: 05/23 17:08 Drug: Ondansetron 4 mg [ondansetron HCl 2 mg/mL intravenous solution (2 mL)] Route: IM; kr3 Site: left deltoid; 17:08 Drug: Dilaudid - HYDROmorphone 1 mg [hydromorphone 1 mg/mL injection syringe (1 mL)] kr3 Route: IM; Site: right deltoid; 18:27 Follow up: Pain 05/24 Adult kr3 Order Results: Lab Order: Amylase; SPEC'M 05/23/16 17:34 Test: AMYLASE; Value: 36; Range: 25-115; Units: U/L; Status: F Lab Order: Basic Metabolic Profile; SPEC'M 05/23/16 17:34 Test: GLUCOSE, FASTING; Value: 161; Range: 70-105; Abnormal: Above high normal; Units: MG/DL; Status: F Test: BLOOD UREA NITROGEN; Value: 16; Range: 7-18; Units: MG/DL; Status: F Test: CREATININE FOR GFR; Value: 0.61; Range: 0.55-1.02; Units: MG/DL; Status: F Test: GLOMERULAR FILTRATION RATE; Value: > 60.0; Range: >51; Status: F Test: SODIUM LEVEL; Value: 141; Range: 136-145; Units: MEQ/L; Status: F Test: POTASSIUM SERUM; Value: 4.3; Range: 3.5-5.1; Units: MEQ/L; Status: F Test: CHLORIDE LEVEL; Value: 104; Range: 98-107; Units: MEQ/L; Status: F Test: CARBON DIOXIDE LEVEL; Value: 29; Range: 21-32; Units: MEQ/L; Status: F Test: ANION GAP; Value: 8; Range: 8-16; Units: MEQ/L; Status: F Test: CALCIUM LEVEL; Value: 10.9; Range: 8.5-10.1; Abnormal: Above high normal; Units: MG/DL; Status: F Test Note: ; Units are mL/min/1.73 m2 Chronic Kidney Disease Staging per NKF: Stage I & II GFR >=60 Normal to Mildly Decreased Stage III GFR 30-59 Moderately Decreased Stage IV GFR 15-29 Severely Decreased Stage V GFR <15 Very Little GFR Left ESRD GFR <15 on SANFORIZING MACHINE OPERATOR Lab Order: CBC with Diff; SPEC'M 05/23/16 17:34 Test: WHITE BLOOD COUNT; Value: 6.4; Range: 4.0-10.0; Units: K/mm3; Status: F Test: RED BLOOD COUNT; Value: 4.16; Range: 4.00-5.40; Units: M/mm3; Status: F Test: HEMOGLOBIN; Value: 12.4; Range: 12.0-16.0; Units: g/dl; Status: F Test: HEMATOCRIT; Value: 39.5; Range: 36.0-47.0; Units: %; Status: F Test: MEAN CORPUSCULAR VOLUME; Value: 95.1; Range: 80.0-96.0; Units: fl; Status: F Test: MEAN CORPUSCULAR HEMOGLOBIN; Value: 29.8; Range: 27.0-33.0; Units: pg; Status: F Test: MEAN CORPUSCULAR HGB CONC; Value: 31.4; Range: 32.0-36.5; Abnormal: Below low normal; Units: g/dl; Status: F Test: RED CELL DISTRIBUTION WIDTH; Value: 13.7; Range: 11.5-14.5; Units: %; Status: F Test: PLATELET COUNT, AUTOMATED; Value: 311; Range: 150-450; Units: k/mm3; Status: F Test: NEUTROPHILS %; Value: 61.3; Range: 36.0-66.0; Units: %; Status: F Test: LYMPH %; Value: 29.1; Range: 24.0-44.0; Units: %; Status: F Test: MONO %; Value: 6.6; Range: 0.0-5.0; Abnormal: Above high normal; Units: %; Status: F Test: EOS %; Value: 0.8; Range: 0.0-3.0; Units: %; Status: F Test: BASO %; Value: 0.2; Range: 0.0-1.0; Units: %; Status: F Test: LARGE UNSTAINED CELL %; Value: 2.0; Range: 0.0-4.0; Units: %; Status: F Test: NEUTROPHILS #; Value: 3.9; Range: 1.8-7.7; Units: K/mm3; Status: F Test: LYMPH #; Value: 1.9; Range: 1.5-4.5; Units: K/mm3; Status: F Test: MONO #; Value: 0.4; Range: 0.0-0.8; Units: K/mm3; Status: F Test: EOS #; Value: 0.0; Range: 0.0-0.50; Units: K/mm3; Status: F Test: BASO #; Value: 0.0; Range: 0.0-0.2; Units: K/mm3; Status: F Test: LARGE UNSTAINED CELL #; Value: 0.1; Range: 0.0-0.4; Units: K/mm3; Status: F Lab Order: Lipase; [facility]' 05/23/16 17:34 Test: LIPASE; Value: 209; Range: 73-393; Units: U/L; Status: F Lab Order: Liver Profile; SPEC' 05/23/16 17:34 Test: AST/SGOT; Value: 14; Range: 15-37; Abnormal: Below low normal; Units: U/L; Status: F Test: ALT/SGPT; Value: 27; Range: 12-78; Units: U/L; Status: F Test: ALKALINE PHOSPHATASE; Value: 123; Range: 45-117; Abnormal: Above high normal; Units: U/L; Status: F Test: BILIRUBIN,TOTAL; Value: 0.1; Range: 0.2-1.0; Abnormal: Below low normal; Units: MG/DL; Status: F Test: BILIRUBIN,DIRECT; Value: < 0.1; Range: 0.0-0.2; Units: MG/DL; Status: F Test: TOTAL PROTEIN; Value: 7.8; Range: 6.4-8.2; Units: GM/DL; Status: F Test: ALBUMIN; Value: 3.8; Range: 3.2-5.2; Units: GM/DL; Status: F Test: ALBUMIN/GLOBULIN RATIO; Value: 0.95; Range: 1.00-1.93; Abnormal: Below low normal; Status: F Lab Order: Lactic Acid (Camejo tube on ice); SPEC'M 05/23/16 17:34 Test: LACTIC ACID SEPSIS PROTOCOL; Value: 1.6; Range: 0.4-2.0; Units: MMOL/L; Status: F Radiology Order: Abdomen 2 View Test: Abdomen 2 View REASON FOR EXAMINATION: Abdomen Pain; ABDOMEN:; ; Two views of the abdomen were performed and compared to prior study of; 05/15/2016.; ; There is a nonobstructive bowel gas pattern. Ostomy is seen in the left lower; quadrant. Diffuse metallic clips are seen throughout the abdomen and pelvis.; Dorsal column stimulator is noted.; ; IMPRESSION: No change since prior study. Nonobstructive bowel gas pattern.; ; ; Signed by; Geovanni Camejo MD 05/23/2016 08:15 P; Outcome: 18:35 Discharge ordered by Provider. mo1 18:52 Discharge Assessment: patient administered narcotics - yes. Pt provided with safe rs3 discharge. The following High Risk Discharge criteria are identified: None. Discharged to home with family. Condition: stable. Discharge instructions given to patient, family, Instructed on discharge instructions, follow up and referral plans. medication usage, Demonstrated understanding of instructions, medications, Pt was receptive of discharge instructions/ teaching. No special radiology studies were completed. Property :Personal belongings accompany Pt. 18:54 Patient left the ED. rs3 Signatures: Dispatcher MedHost EDMS Alma Roy RN RN kpj Barnhardt, Gloria, Mitzy Basilio RN RN Yesika Escalona RN RN rs3 Josephine Mckeon gr2 Vladislav Moreno PA PA mo1 Chivo Lewis, SPA MANAGER SPA MANAGER Karmen Lloyd Nicole nb2 Chart Complete MTDD
== END 2016-05-23 18:54 | disposition home or self-care (01) ==
LOC: M ED 14:13
DX: K43.9 Ventral hernia without obstruction or gangrene (principal); R11.0 Nausea; E11.9 Type 2 diabetes mellitus without complications; J45.909 Unspecified asthma, uncomplicated; G89.4 Chronic pain syndrome; K76.0 Fatty (change of) liver, not elsewhere classified; K21.9 Gastro-esophageal reflux disease without esophagitis; K46.9 Unspecified abdominal hernia without obstruction or gangrene; E78.00 Pure hypercholesterolemia, unspecified; E87.6 Hypokalemia; E83.42 Hypomagnesemia; Z87.440 Personal history of urinary (tract) infections; Z86.718 Personal history of other venous thrombosis and embolism; Z87.442 Personal history of urinary calculi; Z79.01 Long term (current) use of anticoagulants; Z79.4 Long term (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; Z79.899 Other long term (current) drug therapy; Z88.8 Allergy status to other drugs, medicaments and biological substances; Z88.1 Allergy status to other antibiotic agents; Z88.2 Allergy status to sulfonamides; Z88.0 Allergy status to penicillin; Z88.5 Allergy status to narcotic agent; Z91.041 Radiographic dye allergy status
CPT/HCPCS: 36415; 74020; 80048; 80076; 82150; 83605; 83690; 85025; 96372; 99283; J1170; J2405

== ENCOUNTER 2016-05-24 06:31 | Outpatient (CLI) | payer OTHER ==
[~2016-05-24] VITALS: Ht 170.2 cm; Wt 77.1 kg
[~2016-05-24 06:31] MED LIST changes: +MAGNESIUM SULFATE 1 GM/100 ML D5W BAG (10MG/ML) (J3475) IV SCH
[2016-05-24] MEDS ORDERED: ONDANSETRON 4MG/2ML VIAL (J2405) IV ONE (06:45)
[2016-05-24] MEDS ORDERED: SODIUM CHLORIDE 0.9% INJ 10 ML SYR IV SCH (06:45)
== END 2016-05-24 09:30 | disposition home or self-care (01) ==
LOC: M INFU 06:31
PROVIDERS: ATTEND Family Medicine
DX: E83.42 Hypomagnesemia (principal); Z79.899 Other long term (current) drug therapy; Z79.4 Long term (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; Z88.1 Allergy status to other antibiotic agents; Z88.5 Allergy status to narcotic agent; Z91.02 Food additives allergy status; Z91.018 Allergy to other foods; Z91.048 Other nonmedicinal substance allergy status; Z88.0 Allergy status to penicillin
CPT/HCPCS: 96365; 96367; J2405; J3475

== ENCOUNTER 2016-05-29 06:50 | Outpatient (CLI) | payer OTHER ==
[~2016-05-29] VITALS: Ht 170.2 cm; Wt 77.1 kg
[~2016-05-29 06:50] MED LIST changes: -MAGNESIUM SULFATE 1 GM/100 ML D5W BAG (10MG/ML) (J3475) IV SCH; +ONDANSETRON 4MG/2ML VIAL (J2405) IV ONE; +SODIUM CHLORIDE 0.9% INJ 10 ML SYR IV SCH
== END 2016-05-29 07:45 | disposition home or self-care (01) ==
LOC: M INFU 06:50
PROVIDERS: ATTEND Family Medicine
DX: E83.42 Hypomagnesemia (principal); Z79.899 Other long term (current) drug therapy; Z79.4 Long term (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; Z88.1 Allergy status to other antibiotic agents; Z88.5 Allergy status to narcotic agent; Z91.02 Food additives allergy status; Z91.018 Allergy to other foods; Z91.048 Other nonmedicinal substance allergy status; Z88.0 Allergy status to penicillin
CPT/HCPCS: 36415; 83735; 96374; J2405

== ENCOUNTER 2016-05-31 06:35 | Outpatient (CLI) | payer OTHER ==
[~2016-05-31 06:35] MED LIST changes: -SODIUM CHLORIDE 0.9% INJ 10 ML SYR IV SCH
[2016-05-31] MEDS ORDERED: MAGNESIUM SULFATE 1 GM/100 ML D5W BAG (10MG/ML) (J3475) IV SCH (07:00)
[2016-05-31] MEDS ORDERED: SODIUM CHLORIDE 0.9% INJ 10 ML SYR IV SCH (09:00)
== END 2016-05-31 11:40 | disposition home or self-care (01) ==
LOC: M INFU 06:35
PROVIDERS: ATTEND Family Medicine
DX: E83.42 Hypomagnesemia (principal); Z79.899 Other long term (current) drug therapy; Z79.4 Long term (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; Z88.1 Allergy status to other antibiotic agents; Z88.5 Allergy status to narcotic agent; Z91.02 Food additives allergy status; Z91.018 Allergy to other foods; Z91.048 Other nonmedicinal substance allergy status; Z88.0 Allergy status to penicillin
CPT/HCPCS: 96365; 96367; J2405; J3475

== ENCOUNTER 2016-06-05 06:52 | Outpatient (CLI) | payer OTHER ==
[~2016-06-05] VITALS: Ht 170.2 cm; Wt 77.1 kg
[~2016-06-05 06:52] MED LIST changes: -ONDANSETRON 4MG/2ML VIAL (J2405) IV ONE
[2016-06-05] MEDS ORDERED: SODIUM CHLORIDE 0.9% INJ 10 ML SYR IV SCH (07:00)
[2016-06-05] MEDS ORDERED: ONDANSETRON 4MG/2ML VIAL (J2405) IV ONE (07:00)
== END 2016-06-05 07:30 | disposition home or self-care (01) ==
LOC: M INFU 06:52
PROVIDERS: ATTEND Family Medicine
DX: E83.42 Hypomagnesemia (principal); Z79.899 Other long term (current) drug therapy; Z79.4 Long term (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; Z88.1 Allergy status to other antibiotic agents; Z88.5 Allergy status to narcotic agent; Z88.0 Allergy status to penicillin; Z91.02 Food additives allergy status; Z91.048 Other nonmedicinal substance allergy status; Z91.018 Allergy to other foods
CPT/HCPCS: 36415; 83735; 96374; J2405

== ENCOUNTER 2016-06-07 06:32 | Outpatient (CLI) | payer OTHER ==
[~2016-06-07] VITALS: Ht 170.2 cm; Wt 77.1 kg
[2016-06-07] MEDS ORDERED: ONDANSETRON 4MG/2ML VIAL (J2405) IV ONE (06:45)
[2016-06-07] MEDS ORDERED: MAGNESIUM SULFATE 1 GM/100 ML D5W BAG (10MG/ML) (J3475) IV SCH (07:00)
[2016-06-07] MEDS ORDERED: SODIUM CHLORIDE 0.9% INJ 10 ML SYR IV SCH (07:00)
== END 2016-06-07 11:30 | disposition home or self-care (01) ==
LOC: M INFU 06:32
PROVIDERS: ATTEND Family Medicine
DX: E83.42 Hypomagnesemia (principal); Z79.899 Other long term (current) drug therapy; Z79.4 Long term (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; Z88.1 Allergy status to other antibiotic agents; Z88.5 Allergy status to narcotic agent; Z88.0 Allergy status to penicillin; Z91.018 Allergy to other foods; Z91.048 Other nonmedicinal substance allergy status
CPT/HCPCS: 96365; 96367; J2405; J3475

== ENCOUNTER 2016-06-10 06:31 | Outpatient (CLI) | payer OTHER ==
[~2016-06-10] VITALS: Ht 170.2 cm; Wt 77.1 kg
[~2016-06-10 06:31] MED LIST changes: +ONDANSETRON 4MG/2ML VIAL (J2405) IV ONE; +SODIUM CHLORIDE 0.9% INJ 10 ML SYR IV SCH
== END 2016-06-10 06:35 | disposition home or self-care (01) ==
LOC: M INFU 06:31
PROVIDERS: ATTEND Family Medicine
DX: E83.42 Hypomagnesemia (principal); Z79.899 Other long term (current) drug therapy; Z79.4 Long term (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; Z88.1 Allergy status to other antibiotic agents; Z88.5 Allergy status to narcotic agent; Z88.0 Allergy status to penicillin; Z91.02 Food additives allergy status; Z91.018 Allergy to other foods; Z91.048 Other nonmedicinal substance allergy status

== ENCOUNTER 2016-06-11 06:05 | Inpatient (IN) | payer OTHER ==
--- NOTE | 2016-06-10 18:58 | HPE ---
DATE OF ADMISSION: 06/11/2016 CHIEF COMPLAINT: Parastomal hernia with recent small bowel obstruction. BRIEF HISTORY OF PRESENT ILLNESS: The patient is a 55-year-old female who has had multiple abdominal hernia repairs in the past, subtotal colectomy and has had colostomies because of abdominal atrophy and recurrent hernias as well as mesh infection. The patient has had some recurrent parastomal hernias. More recently she was admitted to the hospital for a bowel obstruction. Since that time she complains of ongoing continued pain at the parastomal hernia site. She does have some difficulties with small bowel ostomy output. The patient has had chronic abdominal pain issues and continues to have a severe abdominal pain at all times. This does not resolve completely and abdominal pain per se has not been a very reliable indicator of obstructive findings on her studies. Unfortunately she has had so many abdominal surgeries and intra-abdominal adhesions that complex lysis of adhesions need to be performed with frequently bowel injury require repair and some subsequent prolonged postoperative ileus is associated with this. At this point it is hard to know if she has some chronic adhesions causing partial obstruction/defunctionalized small bowel as well. In any case, presents for small bowel obstruction, history of small bowel obstruction. PAST MEDICAL HISTORY: Is significant for history of scalp lesion, history of lumpectomies, history of hysterectomy, history of ovarian cyst, history of bilateral sympathectomy, history of arteriovenous fistula repair, history of cholecystectomy, history of multiple small-bowel obstructions, multiple large bowel obstructions, multiple colonic excisions, multiple hernia repairs, multiple parastomal hernia repairs, dorsal column stimulator placement after some chronic abdominal as lower extremity pain. MEDICATIONS: Include Nasacort, Glucerna, Pedialyte, amitriptyline, azelastine, Symbicort, Zyrtec, Loped, insulin, NovoLog 70/30, insulin Levemir, magnesium oxide,, Reglan, odansatron, potassium, ranitidine, Carafate, tizanidine. Also has intermittent albuterol, Benadryl, Dilaudid, lactulose, simethicone. ALLERGIES: Has multiple listed allergies, although most of these are adverse reactions such as mild nervousness, shakiness, hives, tape blisters, etc. Her listed allergies are approximately 35-40 different medications. PHYSICAL EXAMINATION: Her physical exam reveals a alopecic individual who has some steroid faces. HEENT: Is otherwise unremarkable. LUNGS: Are clear to auscultation. HEART: Is regular. ABDOMEN: Is protuberant, almost a prune belly appearance to it with atrophied abdominal wall muscles that can appreciated on her CT scan with abdominal wall muscles approximately what appears to be only a few millimeters in thickness without any true muscular component to this. The patient has numerous areas of diastasis or at least bulging along her abdominal wall. She has tenderness throughout her abdominal wall with guarding, with rebound, peritoneal signs and multiple different areas. However once again these peritoneal signs have been seen throughout her multiple years of evaluation. She does have a parastomal hernia that is not reducible. Enterostomy seems to be functioning fine clean and pink. IMPRESSION AND PLAN: The patient has a parastomal hernia. Will plan on operative repair of this. Unfortunately performing a midline incision taking down this hernia and replacing it some more I feel is a significant operative intervention that may not be necessary and we may be able to reinforce the parastomal hernia after reducing thus. Then will have her seen over the next few days for admission and observation. Her second issue is her multiple medical issues, one of which is chronic abdominal pain. Will inject some local around the parastomal hernia repair, but given her other areas of abdominal pain and discomfort I anticipate she will need continued treatment for this. She has done well with a SHROUDMAN in the past, even though morphine has been "an allergy" it is an adverse reaction where she had difficulty breathing/apnea after taking excessive doses. Her next issue is her medical issues such as diabetes mellitus, asthma, hypomagnesemia, etc. . We will have medicine make recommendations and assist us with her complicated care. Dr. Sanchez is her primary and we will have that medicine group assist us with her care. I anticipate she will have to be nothing by mouth for the first 24-48 hours and then progress her diet as her ostomy seems to function. Will give her IV fluids, keep her nothing by mouth and plan on operative intervention for her on her admission date on 06/11.
[2016-06-11] VITALS (10 sets, daily range): BP systolic 120–145; BP diastolic 57–77
[~2016-06-11] VITALS: Ht 170.2 cm; Wt 75.3 kg
[~2016-06-11 06:05] MED LIST changes: -COLA100C PO; +COLA100C3 PO; -HEPA1INJ IV; +HEPA1INJ4 IV; -ONDANSETRON 4MG/2ML VIAL (J2405) IV ONE; -SODIUM CHLORIDE 0.9% INJ 10 ML SYR IV SCH
[2016-06-11] MEDS ORDERED: LR 1,000 ML IV SCH ×2 (06:30→11:30)
[2016-06-11] MEDS ORDERED: BUPIVACAINE HCL 0.25% 30 ML VIAL As Ordered ONE (07:14)
[2016-06-11] MEDS ORDERED: BUPIVACAINE/EPIN 0.25% 30 ML VIAL As Ordered ONE (07:17)
[2016-06-11] MEDS ORDERED: MIDAZOLAM INJ 2 MG/2 ML VIAL (J2250) As Ordered ONE (07:20)
[2016-06-11] MEDS ORDERED: fentaNYL 100 MCG/2 ML INJECTION (J3010) As Ordered ONE ×3 (07:21→09:45)
[2016-06-11] MEDS ORDERED: LIDOCAINE 2% INJ 100 MG/5 ML SDV (FOR ANES.) As Ordered ONE (07:21)
[2016-06-11] MEDS ORDERED: PROPOFOL 200 MG/20 ML VIAL As Ordered ONE ×2 (07:22→07:23)
[2016-06-11] MEDS ORDERED: BUPIVACAINE LIPOSOME/PF 1.3% 20 ML VIAL (13.3MG/ML)(EXPAREL) As Ordered ONE (07:27)
[2016-06-11] MEDS ORDERED: cefTRIAXone SOD 1 GM VIAL (J0696) As Ordered ONE (07:32)
[2016-06-11] MEDS ORDERED: cefTRIAXone SOD 1 GM in D5W MINI-BAG PLUS 50 ML IV ONE (08:00)
[2016-06-11] MEDS ORDERED: METOCLOPRAMIDE INJ 10MG/2ML VIAL (J2765) As Ordered ONE (08:16)
[2016-06-11] MEDS: ALVIMOPAN 12 MG CAPSULE (ENTEREG) PO SCH ×2 (09:00→20:49)
[2016-06-11] MEDS: PANTOPRAZOLE 40MG INJ (PROTONIX) (C9113) IV SCH ×3 (09:00→20:49)
[2016-06-11] MEDS ORDERED: ONDANSETRON 4MG/2ML VIAL (J2405) As Ordered ONE (09:04)
[2016-06-11] MEDS ORDERED: GLYCOPYRROLATE INJ 0.2 MG/ML 2 ML VIAL As Ordered ONE (09:04)
[2016-06-11] MEDS ORDERED: NEOSTIGMINE 1MG/ML 5 ML SYRINGE (J2710) As Ordered ONE (09:05)
[2016-06-11] MEDS ORDERED: BUPIVACAINE LIPOSOME/PF 1.3% 20 ML VIAL (13.3MG/ML)(EXPAREL) INJ ONE (10:03)
[2016-06-11] MEDS ORDERED: HYDROmorphone HCL 1 MG/ML SYRINGE (J1170) As Ordered ONE (10:39)
[2016-06-11] MEDS: HYDROmorphone HCL 1 MG/ML SYRINGE (J1170) IV PRN ×11 (10:44→22:17)
[2016-06-11] MEDS ORDERED: cefTRIAXone SOD 1 GM in D5W MINI-BAG PLUS 50 ML IV SCH (11:00)
[2016-06-11] MEDS: LR 1,000 ML IV SCH ×2 (11:00→20:49)
[2016-06-11] MEDS ORDERED: METOCLOPRAMIDE INJ 10MG/2ML VIAL (J2765) IV PRN ×2 (11:30→19:15)
[2016-06-11] MEDS ORDERED: ONDANSETRON 4MG/2ML VIAL (J2405) IV PRN (11:30)
[2016-06-11] MEDS ORDERED: fentaNYL 100 MCG/2 ML INJECTION (J3010) IV PRN (11:30)
[2016-06-11] MEDS: SUCRALFATE 1 GM TAB PO SCH ×3 (12:00→20:49)
[2016-06-11] MEDS: IPRATROPIUM 0.5MG/ALBUTEROL 2.5MG INH SOL UD 3ML (DUONEB)(J7620) INH SCH ×3 (12:00→19:39)
[2016-06-11] MEDS: ONDANSETRON 4MG/2ML VIAL (J2405) IV PRN (22:16)
[2016-06-12] MEDS: HYDROmorphone HCL 1 MG/ML SYRINGE (J1170) IV PRN ×8 (01:29→23:32)
[2016-06-12 02:00] VITALS: BP 129/63
[2016-06-12] MEDS: ONDANSETRON 4MG/2ML VIAL (J2405) IV PRN ×3 (04:40→20:26)
[2016-06-12] MEDS: LR 1,000 ML IV SCH (04:40)
[2016-06-12 06:00] VITALS: BP 128/59
[2016-06-12 06:12] LABS: MEAN CORPUSCULAR HEMOGLOBIN 30.3 pg (27.0-33.0); MEAN CORPUSCULAR VOLUME 94.8 fl (80.0-96.0); RED CELL DISTRIBUTION WIDTH 13.2 % (11.5-14.5); WHITE BLOOD COUNT 8.2 K/mm3 (4.0-10.0)
[2016-06-12 06:29] LABS: ALBUMIN 2.7 GM/DL (3.2-5.2); ALBUMIN/GLOBULIN RATIO 0.84 (1.00-1.93); ALKALINE PHOSPHATASE 105 U/L (45-117); ALT/SGPT 17 U/L (12-78); ANION GAP 11 MEQ/L (8-16); AST/SGOT 13 U/L (15-37); BILIRUBIN,TOTAL 0.5 MG/DL (0.2-1.0); BLOOD UREA NITROGEN 12 MG/DL (7-18); CALCIUM LEVEL 9.2 MG/DL (8.5-10.1); CARBON DIOXIDE LEVEL 27 MEQ/L (21-32); CHLORIDE LEVEL 101 MEQ/L (98-107); CREATININE FOR GFR 0.52 MG/DL (0.55-1.02); GLOMERULAR FILTRATION RATE > 60.0 (>51); GLUCOSE, FASTING 215 MG/DL (70-105); MAGNESIUM LEVEL 1.2 MG/DL (1.8-2.4); POTASSIUM SERUM 3.8 MEQ/L (3.5-5.1); SODIUM LEVEL 139 MEQ/L (136-145); TOTAL PROTEIN 5.9 GM/DL (6.4-8.2)
[2016-06-12] MEDS: IPRATROPIUM 0.5MG/ALBUTEROL 2.5MG INH SOL UD 3ML (DUONEB)(J7620) INH SCH ×4 (07:18→20:00)
[2016-06-12] MEDS: PANTOPRAZOLE 40MG INJ (PROTONIX) (C9113) IV SCH ×2 (08:09→20:26)
[2016-06-12] MEDS: ALVIMOPAN 12 MG CAPSULE (ENTEREG) PO SCH (08:10)
[2016-06-12] MEDS: SUCRALFATE 1 GM TAB PO SCH ×4 (08:10→20:26)
[2016-06-12] MEDS: SYMBICORT 160/4.5MCG INHALER 6GM INH SCH ×2 (09:00→21:02)
[2016-06-12 10:00] VITALS: BP 113/55
[2016-06-12] MEDS ORDERED: GLUCAGON FOR INJ 1 MG VIAL (J1610) SC PRN (12:00)
[2016-06-12] MEDS ORDERED: DEXTROSE 50% 50 ML SYRINGE IV PRN (12:00)
[2016-06-12] MEDS ORDERED: GLUCOSE 4 GM CHEW TABLET PO PRN (12:00)
--- NOTE | 2016-06-12 12:12 | IPNPDOC ---
Subjective Date Seen The patient was seen on 06/12/16. Subjective Chief Complaint/HPI The patient is a 55-year-old female admitted with a reason for visit of Parastomal Hernia. Events since last encounter Pt notes some abd pain at surgery site. Denies CP, SOB. Constitutional: Denies: Chills, Fever Pulmonary: Denies: Dyspnea Cardiovascular: Denies: Chest Pain Gastrointestinal: Reports: Abdominal Pain Objective Physical Examination General Exam: Positive: Alert, No Acute Distress Neck Exam: Positive: Supple, Negative: JVD Chest Exam: Positive: Clear to auscultation Heart Exam: Positive: Rate Normal, Regular Rhythm Abdomen Exam: Positive: BS Hypoactive, Other (Dressing), Tenderness Extremity Exam: Negative: Edema Assessment /Plan Problems (1) S/P hernia repair Status: Acute Problem Specific Plan: Consult Specialist, Monitor Clinically Problem Text: Dr Campuzano following. Pt on clears. (2) Status post osteotomy Status: Acute Problem Specific Plan: Consult Specialist, Monitor Clinically Problem Text: Dr Campuzano following. Pt on clears. (3) T2DM (type 2 diabetes mellitus) Status: Chronic Problem Specific Plan: Monitor Clinically, Repeat Labs Problem Text: Start SSI. Pt's out pt Levemir is currently being held. Will consider restarting once she is taking adequate PO. (4) Hypomagnesemia Onset Date: 02/24/2014 Status: Chronic Problem Specific Plan: Monitor Clinically, Repeat Labs Problem Text: Will give mag runs. Dr Sanchez advises mag runs x 4 today. 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?: Yes (Will start lovenox.) Plan/Urinary Catheter Reason for insertion/continuin: Perioperative VS, I&O, 24H, Fishbone Vital Signs/I&O Vital Signs Date Time Temp Pulse Resp B/P Pulse Ox O2 Delivery O2 Flow Rate FiO2 06/12/16 11:40 18 Nasal Cannula 2.0 06/12/16 10:00 98.1 100 113/55 93 I&O- Last 24 Hours up to 6 AM 06/12/16 06:00 Intake Total 4450 ml Output Total 975 ml Balance 3475 ml Laboratory Data 24H LABS Laboratory Tests 2 06/11/16 16:50: Bedside Glucose (Misc Panel) 137H 06/12/16 05:40: Blood Urea Nitrogen 12, Creatinine 0.52L, Sodium Level 139, Potassium Level 3.8 , Chloride Level 101, Carbon Dioxide Level 27, Calcium Level 9.2, Aspartate Amino Transf (AST/SGOT) 13L, Alanine Aminotransferase (ALT/SGPT) 17, Alkaline Phosphatase 105, Total Bilirubin 0.5, Total Protein 5.9L, Albumin 2.7L, Albumin/ Globulin Ratio 0.84L, Anion Gap 11, Glomerular Filtration Rate > 60.0, Magnesium Level 1.2L CBC/BMP Laboratory Tests 06/12/16 05:40 Calcium Level 9.2, Aspartate Amino Transf (AST/SGOT) 13 L, Alanine Aminotransferase (ALT/SGPT) 17, Alkaline Phosphatase 105, Total Bilirubin 0.5, Total Protein 5.9 L, Albumin 2.7 L, Red Blood Count 3.78 L, Mean Corpuscular Volume 94.8, Mean Corpuscular Hemoglobin 30.3, Mean Corpuscular Hemoglobin Concent 32.0, Red Cell Distribution Width 13.2 Tobi Kumar RPA-Madhu Jun 12, 2016 12:12
[2016-06-12] MEDS: MAG SULF 1GM/100ML (MAG RUN) 1 GM in APPROPRIATE DILUENT 1 EA IV SCH ×4 (12:51→16:00)
[2016-06-12] MEDS: HumaLOG INSULIN (NovoLOG) PER UNIT SC SCH ×3 (13:02→20:46)
[2016-06-12] MEDS: ENOXAPARIN 40 MG/0.4 ML SYRINGE (J1650) SC SCH (13:03)
[2016-06-12 14:00] VITALS: BP 116/57
[2016-06-12] MEDS: SODIUM CHLORIDE 0.9% INJ 10 ML SYR IV PRN (17:08)
[2016-06-12 18:00] VITALS: BP 119/67
[2016-06-12 22:00] VITALS: BP 132/64
[2016-06-13] MEDS: AMITRIPTYLINE 50 MG TAB PO SCH ×3 (00:16→21:04)
[2016-06-13 02:00] VITALS: BP 128/71
[2016-06-13] MEDS: HYDROmorphone HCL 1 MG/ML SYRINGE (J1170) IV PRN ×6 (02:42→19:34)
[2016-06-13 05:42] LABS: MEAN CORPUSCULAR HEMOGLOBIN 29.9 pg (27.0-33.0); MEAN CORPUSCULAR HGB CONC 31.3 g/dl (32.0-36.5); MEAN CORPUSCULAR VOLUME 95.7 fl (80.0-96.0); RED CELL DISTRIBUTION WIDTH 13.2 % (11.5-14.5); WHITE BLOOD COUNT 7.4 K/mm3 (4.0-10.0)
[2016-06-13 05:58] LABS: ALBUMIN 2.5 GM/DL (3.2-5.2); ALBUMIN/GLOBULIN RATIO 0.68 (1.00-1.93); ALKALINE PHOSPHATASE 103 U/L (45-117); ALT/SGPT 15 U/L (12-78); ANION GAP 8 MEQ/L (8-16); AST/SGOT 13 U/L (15-37); BILIRUBIN,TOTAL 0.4 MG/DL (0.2-1.0); BLOOD UREA NITROGEN 7 MG/DL (7-18); CALCIUM LEVEL 8.4 MG/DL (8.5-10.1); CARBON DIOXIDE LEVEL 27 MEQ/L (21-32); CHLORIDE LEVEL 101 MEQ/L (98-107); GLOMERULAR FILTRATION RATE > 60.0 (>51); GLUCOSE, FASTING 284 MG/DL (70-105); MAGNESIUM LEVEL 1.7 MG/DL (1.8-2.4); SODIUM LEVEL 136 MEQ/L (136-145); TOTAL PROTEIN 6.2 GM/DL (6.4-8.2)
[2016-06-13 06:00] VITALS: BP 138/67
[2016-06-13] MEDS: IPRATROPIUM 0.5MG/ALBUTEROL 2.5MG INH SOL UD 3ML (DUONEB)(J7620) INH SCH ×4 (08:00→20:00)
[2016-06-13] MEDS: SYMBICORT 160/4.5MCG INHALER 6GM INH SCH ×2 (08:40→20:04)
[2016-06-13] MEDS: SUCRALFATE 1 GM TAB PO SCH ×4 (08:58→21:04)
[2016-06-13] MEDS: HumaLOG INSULIN (NovoLOG) PER UNIT SC SCH ×4 (08:58→21:00)
[2016-06-13] MEDS: SODIUM CHLORIDE 0.9% INJ 10 ML SYR IV SCH (08:58)
[2016-06-13] MEDS: PANTOPRAZOLE 40MG INJ (PROTONIX) (C9113) IV SCH ×2 (08:58→21:03)
[2016-06-13] MEDS: ENOXAPARIN 40 MG/0.4 ML SYRINGE (J1650) SC SCH (08:59)
[2016-06-13 10:00] VITALS: BP 128/73
--- NOTE | 2016-06-13 10:51 | IPNPDOC ---
Subjective Date Seen The patient was seen on 06/13/16. Subjective Chief Complaint/HPI The patient is a 55-year-old female admitted with a reason for visit of Parastomal Hernia. Events since last encounter Pt complains of headache. Still with some abd discomfort. Denies CP, SOB. Denies any other new issues. Dr Campuzano is encouraging the pt to ambulate. Constitutional: Denies: Chills, Fever Pulmonary: Denies: Dyspnea Cardiovascular: Denies: Chest Pain Gastrointestinal: Reports: Abdominal Pain Objective Physical Examination General Exam: Positive: Alert, No Acute Distress Neck Exam: Positive: Supple, Negative: JVD Chest Exam: Positive: Clear to auscultation Heart Exam: Positive: Rate Normal, Regular Rhythm Abdomen Exam: Positive: BS Hypoactive, Other (Dressing), Tenderness Extremity Exam: Negative: Edema Assessment /Plan Problems (1) S/P hernia repair Status: Acute Problem Specific Plan: Consult Specialist, Monitor Clinically Problem Text: Dr Campuzano following. Pt on clears. (2) Status post osteotomy Status: Acute Problem Specific Plan: Consult Specialist, Monitor Clinically Problem Text: Dr Campuzano following. Pt on clears. (3) T2DM (type 2 diabetes mellitus) Status: Chronic Problem Specific Plan: Monitor Clinically, Repeat Labs Problem Text: 06/13 - On SSI. Pt's out pt Levemir is currently being held. Will consider restarting once she is taking adequate PO. 06/12 - Start SSI. Pt's out pt Levemir is currently being held. Will consider restarting once she is taking adequate PO. (4) Hypomagnesemia Onset Date: 02/24/2014 Status: Chronic Problem Specific Plan: Monitor Clinically, Repeat Labs Problem Text: 06/13 - Will give another mag run today. 06/12 - Will give mag runs. Dr Sanchez advises mag runs x 4 today. (5) Headache Status: Acute Problem Text: Pt requests tylenol for headache. 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?: Yes (Will start lovenox.) Plan/Urinary Catheter Reason for insertion/continuin: Perioperative VS, I&O, 24H, Fishbone Vital Signs/I&O Vital Signs Date Time Temp Pulse Resp B/P Pulse Ox O2 Delivery O2 Flow Rate FiO2 06/13/16 10:27 18 Room Air 06/13/16 06:00 97.1 90 138/67 92 2.0 I&O- Last 24 Hours up to 6 AM 06/13/16 05:59 Intake Total 1740 ml Output Total 1505 ml Balance 235 ml Laboratory Data 24H LABS Laboratory Tests 2 06/12/16 12:59: Bedside Glucose (Misc Panel) 252H 06/12/16 16:55: Bedside Glucose (Misc Panel) 238H 06/12/16 20:17: Bedside Glucose (Misc Panel) 203H 06/13/16 05:22: Blood Urea Nitrogen 7, Creatinine 0.50L, Sodium Level 136, Potassium Level 4.0, Chloride Level 101, Carbon Dioxide Level 27, Calcium Level 8.4L, Aspartate Amino Transf (AST/SGOT) 13L, Alanine Aminotransferase (ALT/SGPT) 15, Alkaline Phosphatase 103, Total Bilirubin 0.4, Total Protein 6.2L, Albumin 2.5L, Albumin/ Globulin Ratio 0.68L, Anion Gap 8, Glomerular Filtration Rate > 60.0, Magnesium Level 1.7L CBC/BMP Laboratory Tests 06/13/16 05:22 Calcium Level 8.4 L, Aspartate Amino Transf (AST/SGOT) 13 L, Alanine Aminotransferase (ALT/SGPT) 15, Alkaline Phosphatase 103, Total Bilirubin 0.4, Total Protein 6.2 L, Albumin 2.5 L, Red Blood Count 3.64 L, Mean Corpuscular Volume 95.7, Mean Corpuscular Hemoglobin 29.9, Mean Corpuscular Hemoglobin Concent 31.3 L, Red Cell Distribution Width 13.2 Tobi Kumar RPA-Madhu Jun 13, 2016 10:50
[2016-06-13] MEDS ORDERED: ACETAMINOPHEN TAB 650MG DOSE (2X325MG) PO PRN (11:00)
--- NOTE | 2016-06-13 12:01 | RO ---
DATE OF PROCEDURE: 06/11/2016 PREOPERATIVE DIAGNOSIS: Parastomal hernia. POSTOPERATIVE DIAGNOSIS: Parastomal hernia. PROCEDURE: 1. Repair of parastomal hernia with mesh (Phasix). 2. Revision of ostomy. SURGEON: Silver Campuzano Jr., MD INDUSTRIAL TECH INSTRUCTOR: Dr. Tomas (Indications for assistant technician: Dr. Tomas provided retraction, exposure or assistance with placement of the mesh). ESTIMATED BLOOD LOSS: Minimal. FLUIDS: Crystalloid. PROCEDURE SUMMARY: The patient was brought to the operating room and was given general anesthesia. After adequate anesthesia and preoperative antibiotics were given, the patient was prepped and draped in the usual sterile fashion. Next, an incision around the ostomy site was made after the ostomy was closed with a running #1 Prolene. Using this as a retractor, using a combination of blunt and sharp dissection as well as electrocautery, the ostomy was mobilized down to the level of the fascia. In addition, throughout this area there is a great deal of small bowel that was within the subcutaneous tissue. This was able to be mobilized off surrounding structures and off the ostomy itself, and what we saw was not a significantly redundant ostomy itself, it was that the small bowel had herniated adjacent to the ostomy. In any case, at this point, given the presentation and the large fascial defect appreciated, there were multiple adhesions that needed to be taken down. Most of these were between bowel and the fascia and were taken down sharply, and eventually after extent mobilization of adhesions in this area, which took quite a while and given her history is typical for her, once these were taken down the fascial edges were evaluated and the anterior surface was cleared of surrounding subcutaneous scar tissue. This was closed around the previous ostomy which was still attached on the inferior aspect. This was closed with figure-of-8 #1 Prolene and eventually once this was tight enough around the ostomy itself, a Phasix mesh 4 x 6 was then stapled into place with SecureStrap using a keyhole incision inferiorly. These edges of the keyhole were overlapped as well. Once this was in place a 15 Oc-Weinstein drain was brought out through the lateral and superior puncture site and then the ostomy was reconfigured. The tip of this was removed. The site of the dissection as well as the ostomy site itself was too large to adequately have the small bowel come up and brook over nicely. Thus, the ostomy opening/skin opening was then closed with some interrupted #3-0 Vicryl in the deeper layer and #3-0 chromic in the skin. Once a good size for the skin hole for the ostomy was created, then the ostomy was brooked into place with #3-0 Vicryl with multiple interrupted sutures. The ostomy appliance was cut to the appropriate size and placed. The patient was awakened, extubated, brought to the recovery room awake, alert and hemodynamically stable. I did use some Exparel in the fascial area surrounding the surrounding this ostomy repair.
[2016-06-13] MEDS: ONDANSETRON 4MG/2ML VIAL (J2405) IV PRN (13:04)
[2016-06-13 14:00] VITALS: BP 110/59
[2016-06-13] MEDS ORDERED: MAG SULF 1GM/100ML (MAG RUN) 1 GM in APPROPRIATE DILUENT 1 EA IV ONE (17:00)
[2016-06-13 18:00] VITALS: BP 128/63
[2016-06-13 20:40] VITALS: BP 124/68
[2016-06-14] MEDS: HYDROmorphone HCL 1 MG/ML SYRINGE (J1170) IV PRN ×7 (00:22→20:53)
[2016-06-14] MEDS: guaiFENesin DM LIQ 10ML UD PO PRN ×3 (00:22→18:01)
[2016-06-14 02:00] VITALS: BP 119/63
[2016-06-14 05:59] LABS: MEAN CORPUSCULAR HGB CONC 31.2 g/dl (32.0-36.5); MEAN CORPUSCULAR VOLUME 96.2 fl (80.0-96.0); RED CELL DISTRIBUTION WIDTH 13.2 % (11.5-14.5); WHITE BLOOD COUNT 6.8 K/mm3 (4.0-10.0)
[2016-06-14 06:00] VITALS: BP 123/65
[2016-06-14 06:22] LABS: ALBUMIN 2.4 GM/DL (3.2-5.2); ALKALINE PHOSPHATASE 101 U/L (45-117); ALT/SGPT 14 U/L (12-78); ANION GAP 8 MEQ/L (8-16); AST/SGOT 16 U/L (15-37); BILIRUBIN,TOTAL 0.3 MG/DL (0.2-1.0); BLOOD UREA NITROGEN 6 MG/DL (7-18); CALCIUM LEVEL 8.8 MG/DL (8.5-10.1); CARBON DIOXIDE LEVEL 25 MEQ/L (21-32); CHLORIDE LEVEL 103 MEQ/L (98-107); CREATININE FOR GFR 0.37 MG/DL (0.55-1.02); GLOMERULAR FILTRATION RATE > 60.0 (>51); GLUCOSE, FASTING 227 MG/DL (70-105); MAGNESIUM LEVEL 1.8 MG/DL (1.8-2.4); POTASSIUM SERUM 3.8 MEQ/L (3.5-5.1); SODIUM LEVEL 136 MEQ/L (136-145); TOTAL PROTEIN 6.4 GM/DL (6.4-8.2)
[2016-06-14] MEDS: IPRATROPIUM 0.5MG/ALBUTEROL 2.5MG INH SOL UD 3ML (DUONEB)(J7620) INH SCH ×4 (08:00→20:00)
[2016-06-14] MEDS: SYMBICORT 160/4.5MCG INHALER 6GM INH SCH ×2 (08:26→20:10)
[2016-06-14] MEDS: HumaLOG INSULIN (NovoLOG) PER UNIT SC SCH ×4 (09:01→20:44)
[2016-06-14] MEDS: PANTOPRAZOLE 40MG INJ (PROTONIX) (C9113) IV SCH ×2 (09:01→20:52)
[2016-06-14] MEDS: ENOXAPARIN 40 MG/0.4 ML SYRINGE (J1650) SC SCH (09:01)
[2016-06-14] MEDS: SODIUM CHLORIDE 0.9% INJ 10 ML SYR IV SCH (09:02)
[2016-06-14] MEDS: SUCRALFATE 1 GM TAB PO SCH ×4 (09:02→20:51)
[2016-06-14] MEDS: AMITRIPTYLINE 50 MG TAB PO SCH ×2 (09:02→20:51)
[2016-06-14 10:00] VITALS: BP 118/77
[2016-06-14] MEDS: ONDANSETRON 4MG/2ML VIAL (J2405) IV PRN (13:04)
[2016-06-14 13:33] VITALS: BP 117/57
--- NOTE | 2016-06-14 14:49 | IPN ---
DATE: 06/14/2016 Rich is seen in [address] [place] [id number]. She has picked up a cough. She is not short of breath. She is not running a fever. Blood sugars look good. PHYSICAL EXAMINATION: No fever. Oxygen saturation 95% on room air. Rare dry cough. LUNGS: Decreased breath sounds at the bases but clear. HEART: Regular rhythm. PLAN: Chest x-ray ordered. Diabetes, blood sugar is under good control.
--- NOTE | 2016-06-14 15:18 | REP ---
CHEST, TWO VIEWS: HISTORY: Cough. COMPARISON: 05/15/2016 Increased density is present in the left lower lobe consistent with atelectasis or infiltrate. The right lung is clear. The cardiac silhouette is enlarged. The pulmonary vasculature is normal in appearance. The bony structure is intact. A dorsal column stimulator is present in the lower thoracic spinal canal. An Ntxiew-I-Rtxi catheter is present. IMPRESSION: 1. Left lower lobe atelectasis or infiltrate. 2. Cardiomegaly. Signed by Blake Mead MD 06/14/2016 03:21 P
[2016-06-14] MEDS: SODIUM CHLORIDE 0.9% INJ 10 ML SYR IV PRN ×2 (16:03→20:52)
[2016-06-14 18:00] VITALS: BP 116/62
[2016-06-14 20:25] VITALS: BP 112/64
[2016-06-15] MEDS: guaiFENesin DM LIQ 10ML UD PO PRN ×4 (00:29→22:06)
[2016-06-15] MEDS: HYDROmorphone HCL 1 MG/ML SYRINGE (J1170) IV PRN ×7 (01:51→21:40)
[2016-06-15] MEDS: SODIUM CHLORIDE 0.9% INJ 10 ML SYR IV PRN ×3 (01:51→21:41)
[2016-06-15 02:00] VITALS: BP 127/66
[2016-06-15 06:00] VITALS: BP 127/66
[2016-06-15 06:24] LABS: MEAN CORPUSCULAR HEMOGLOBIN 30.6 pg (27.0-33.0); MEAN CORPUSCULAR HGB CONC 31.6 g/dl (32.0-36.5); MEAN CORPUSCULAR VOLUME 96.8 fl (80.0-96.0); RED CELL DISTRIBUTION WIDTH 13.3 % (11.5-14.5); WHITE BLOOD COUNT 5.4 K/mm3 (4.0-10.0)
[2016-06-15 06:30] LABS: ALBUMIN 2.4 GM/DL (3.2-5.2); ALKALINE PHOSPHATASE 101 U/L (45-117); ALT/SGPT 13 U/L (12-78); ANION GAP 10 MEQ/L (8-16); AST/SGOT 12 U/L (15-37); BILIRUBIN,TOTAL 0.2 MG/DL (0.2-1.0); BLOOD UREA NITROGEN 6 MG/DL (7-18); CALCIUM LEVEL 8.5 MG/DL (8.5-10.1); CARBON DIOXIDE LEVEL 25 MEQ/L (21-32); CHLORIDE LEVEL 104 MEQ/L (98-107); CREATININE FOR GFR 0.39 MG/DL (0.55-1.02); GLOMERULAR FILTRATION RATE > 60.0 (>51); GLUCOSE, FASTING 230 MG/DL (70-105); MAGNESIUM LEVEL 1.8 MG/DL (1.8-2.4); POTASSIUM SERUM 3.6 MEQ/L (3.5-5.1); SODIUM LEVEL 139 MEQ/L (136-145); TOTAL PROTEIN 6.4 GM/DL (6.4-8.2)
[2016-06-15] MEDS: SYMBICORT 160/4.5MCG INHALER 6GM INH SCH ×2 (07:17→20:09)
[2016-06-15] MEDS: HumaLOG INSULIN (NovoLOG) PER UNIT SC SCH ×4 (07:46→21:00)
[2016-06-15] MEDS: SUCRALFATE 1 GM TAB PO SCH ×4 (07:46→20:55)
[2016-06-15] MEDS: IPRATROPIUM 0.5MG/ALBUTEROL 2.5MG INH SOL UD 3ML (DUONEB)(J7620) INH SCH ×4 (08:00→20:00)
[2016-06-15] MEDS: AMITRIPTYLINE 50 MG TAB PO SCH ×2 (08:49→20:56)
[2016-06-15] MEDS: PANTOPRAZOLE 40MG INJ (PROTONIX) (C9113) IV SCH ×2 (08:50→20:56)
[2016-06-15] MEDS: ENOXAPARIN 40 MG/0.4 ML SYRINGE (J1650) SC SCH (08:50)
[2016-06-15] MEDS: SODIUM CHLORIDE 0.9% INJ 10 ML SYR IV SCH (08:50)
--- NOTE | 2016-06-15 09:19 | IPNPDOC ---
Subjective Date Seen The patient was seen on 06/15/16. Subjective Chief Complaint/HPI The patient is a 55-year-old female admitted with a reason for visit of Parastomal Hernia. Events since last encounter Pt states she is feeling better. Denies CP, SOB. Pulmonary: Denies: Dyspnea Cardiovascular: Denies: Chest Pain Gastrointestinal: Reports: Abdominal Pain Objective Physical Examination General Exam: Positive: Alert, No Acute Distress Neck Exam: Positive: Supple, Negative: JVD Chest Exam: Positive: Clear to auscultation Heart Exam: Positive: Rate Normal, Regular Rhythm Abdomen Exam: Positive: BS Hypoactive, Other (Dressing), Tenderness Extremity Exam: Negative: Edema Assessment /Plan Problems (1) S/P hernia repair Status: Acute Problem Specific Plan: Consult Specialist, Monitor Clinically Problem Text: Dr Campuzano following. (2) Status post osteotomy Status: Acute Problem Specific Plan: Consult Specialist, Monitor Clinically Problem Text: Dr Campuzano following. (3) T2DM (type 2 diabetes mellitus) Status: Chronic Problem Specific Plan: Monitor Clinically, Repeat Labs Problem Text: 06/15 - On SSI. Pt's out pt levemir is currently being held. Pt is on Levemir 30 units daily as out pt. 06/13 - On SSI. Pt's out pt Levemir is currently being held. Will consider restarting once she is taking adequate PO. 06/12 - Start SSI. Pt's out pt Levemir is currently being held. Will consider restarting once she is taking adequate PO. (4) Hypomagnesemia Onset Date: 02/24/2014 Status: Chronic Problem Specific Plan: Monitor Clinically, Repeat Labs Problem Text: 06/15 - Mag 1.8 today. 06/13 - Will give another mag run today. 06/12 - Will give mag runs. Dr Sanchez advises mag runs x 4 today. (5) Headache Status: Acute Problem Text: 06/15 - asymptomatic 06/13 - Pt requests tylenol for headache. 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?: Yes (Will start lovenox.) Plan/Urinary Catheter Reason for insertion/continuin: Perioperative VS, I&O, 24H, Fishbone Vital Signs/I&O Vital Signs Date Time Temp Pulse Resp B/P Pulse Ox O2 Delivery O2 Flow Rate FiO2 06/15/16 08:49 18 Room Air 06/15/16 06:00 97.7 94 127/66 93 06/13/16 06:00 2.0 I&O- Last 24 Hours up to 6 AM 06/15/16 06:00 Intake Total 1740 ml Output Total 2070 ml Balance -330 ml Laboratory Data 24H LABS Laboratory Tests 2 06/14/16 11:22: Bedside Glucose (Misc Panel) 230H 06/14/16 16:27: Bedside Glucose (Misc Panel) 260H 06/14/16 20:25: Bedside Glucose (Misc Panel) 249H 06/15/16 05:32: Blood Urea Nitrogen 6L, Creatinine 0.39L, Sodium Level 139, Potassium Level 3.6 , Chloride Level 104, Carbon Dioxide Level 25, Calcium Level 8.5, Aspartate Amino Transf (AST/SGOT) 12L, Alanine Aminotransferase (ALT/SGPT) 13, Alkaline Phosphatase 101, Total Bilirubin 0.2, Total Protein 6.4, Albumin 2.4L, Albumin/ Globulin Ratio 0.60L, Anion Gap 10, Glomerular Filtration Rate > 60.0, Magnesium Level 1.8 CBC/BMP Laboratory Tests 06/15/16 05:32 Calcium Level 8.5, Aspartate Amino Transf (AST/SGOT) 12 L, Alanine Aminotransferase (ALT/SGPT) 13, Alkaline Phosphatase 101, Total Bilirubin 0.2, Total Protein 6.4, Albumin 2.4 L 06/15/16 05:33 Red Blood Count 3.39 L, Mean Corpuscular Volume 96.8 H, Mean Corpuscular Hemoglobin 30.6, Mean Corpuscular Hemoglobin Concent 31.6 L, Red Cell Distribution Width 13.3 Tobi Kumar RPA-Madhu Jun 15, 2016 09:19
[2016-06-15 10:00] VITALS: BP 119/69
[2016-06-15 14:00] VITALS: BP 120/65
[2016-06-15 18:00] VITALS: BP 130/64
[2016-06-15 20:50] VITALS: BP 123/69
[2016-06-16] VITALS (7 sets, daily range): BP systolic 121–144; BP diastolic 67–88
[2016-06-16] MEDS: SODIUM CHLORIDE 0.9% INJ 10 ML SYR IV PRN (01:10)
[2016-06-16] MEDS: HYDROmorphone HCL 1 MG/ML SYRINGE (J1170) IV PRN ×7 (01:10→20:58)
[2016-06-16] MEDS: SODIUM CHLORIDE 0.9% INJ 10 ML SYR IV SCH ×2 (04:31→07:48)
[2016-06-16] MEDS: SYMBICORT 160/4.5MCG INHALER 6GM INH SCH ×2 (07:18→19:37)
[2016-06-16] MEDS: SUCRALFATE 1 GM TAB PO SCH ×4 (07:45→20:57)
[2016-06-16] MEDS: PANTOPRAZOLE 40MG INJ (PROTONIX) (C9113) IV SCH (07:45)
[2016-06-16] MEDS: HumaLOG INSULIN (NovoLOG) PER UNIT SC SCH ×4 (07:46→20:56)
[2016-06-16] MEDS: AMITRIPTYLINE 50 MG TAB PO SCH ×2 (07:46→20:58)
[2016-06-16] MEDS: guaiFENesin DM LIQ 10ML UD PO PRN ×3 (07:47→20:59)
[2016-06-16] MEDS: ENOXAPARIN 40 MG/0.4 ML SYRINGE (J1650) SC SCH (07:47)
[2016-06-16] MEDS: IPRATROPIUM 0.5MG/ALBUTEROL 2.5MG INH SOL UD 3ML (DUONEB)(J7620) INH SCH ×4 (08:00→19:37)
--- NOTE | 2016-06-16 10:44 | IPNPDOC ---
Subjective Date Seen The patient was seen on 06/16/16. Subjective Chief Complaint/HPI The patient is a 55-year-old female admitted with a reason for visit of Parastomal Hernia. Events since last encounter Pt feeling better. Denies any new issues. Denies CP, SOB, Abd pain. Pulmonary: Denies: Dyspnea Cardiovascular: Denies: Chest Pain Gastrointestinal: Reports: Abdominal Pain Objective Physical Examination General Exam: Positive: Alert, No Acute Distress Neck Exam: Positive: Supple, Negative: JVD Chest Exam: Positive: Clear to auscultation Heart Exam: Positive: Rate Normal, Regular Rhythm Abdomen Exam: Positive: BS Hypoactive, Other (Dressing), Tenderness Extremity Exam: Negative: Edema Assessment /Plan Problems (1) S/P hernia repair Status: Acute Problem Specific Plan: Consult Specialist, Monitor Clinically Problem Text: Dr Campuzano following. (2) Status post osteotomy Status: Acute Problem Specific Plan: Consult Specialist, Monitor Clinically Problem Text: Dr Campuzano following. (3) T2DM (type 2 diabetes mellitus) Status: Chronic Problem Specific Plan: Monitor Clinically, Repeat Labs Problem Text: 06/16 - On SSI. Pt's out pt levemir is currently being held. Pt is on Levemir 30 units daily as out pt. 06/13 - On SSI. Pt's out pt Levemir is currently being held. Will consider restarting once she is taking adequate PO. 06/12 - Start SSI. Pt's out pt Levemir is currently being held. Will consider restarting once she is taking adequate PO. (4) Hypomagnesemia Onset Date: 02/24/2014 Status: Chronic Problem Specific Plan: Monitor Clinically, Repeat Labs Problem Text: 06/16 - Mag 1.7 today. Will give mag run. 06/15 - Mag 1.8 today. 06/13 - Will give another mag run today. 06/12 - Will give mag runs. Dr Sanchez advises mag runs x 4 today. (5) Headache Status: Acute Problem Text: 06/15 - asymptomatic 06/13 - Pt requests tylenol for headache. 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?: Yes (Will start lovenox.) Plan/Urinary Catheter Reason for insertion/continuin: Perioperative VS, I&O, 24H, Fishbone Vital Signs/I&O Vital Signs Date Time Temp Pulse Resp B/P Pulse Ox O2 Delivery O2 Flow Rate FiO2 06/16/16 08:13 18 Room Air 06/16/16 07:47 97.5 80 122/71 96 06/13/16 06:00 2.0 I&O- Last 24 Hours up to 6 AM 06/16/16 06:00 Intake Total 680 ml Output Total 3120 ml Balance -2440 ml Laboratory Data 24H LABS Laboratory Tests 2 06/15/16 11:23: Bedside Glucose (Misc Panel) 243H 06/15/16 16:32: Bedside Glucose (Misc Panel) 272H 06/15/16 20:54: Bedside Glucose (Misc Panel) 243H 06/16/16 06:14: Bedside Glucose (Misc Panel) 203H Tobi Kumar RPA-C Jun 16, 2016 10:43
[2016-06-16 11:48] LABS: ANION GAP 10 MEQ/L (8-16); BLOOD UREA NITROGEN 7 MG/DL (7-18); CALCIUM LEVEL 8.7 MG/DL (8.5-10.1); CARBON DIOXIDE LEVEL 25 MEQ/L (21-32); CHLORIDE LEVEL 105 MEQ/L (98-107); CREATININE FOR GFR 0.44 MG/DL (0.55-1.02); GLOMERULAR FILTRATION RATE > 60.0 (>51); GLUCOSE, FASTING 236 MG/DL (70-105); MAGNESIUM LEVEL 1.7 MG/DL (1.8-2.4); POTASSIUM SERUM 3.6 MEQ/L (3.5-5.1); SODIUM LEVEL 140 MEQ/L (136-145)
[2016-06-16] MEDS ORDERED: MAG SULF 1GM/100ML (MAG RUN) 1 GM in APPROPRIATE DILUENT 1 EA IV ONE (13:00)
[2016-06-16] MEDS: PANTOPRAZOLE 40MG TAB (PROTONIX) PO SCH (20:58)
[2016-06-16] MEDS: CEFDINIR 300 MG CAP (OMNICEF) PO SCH (22:00)
[2016-06-17] MEDS: HYDROmorphone HCL 1 MG/ML SYRINGE (J1170) IV PRN ×4 (00:06→11:02)
[2016-06-17 02:00] VITALS: BP 155/77
[2016-06-17 06:00] VITALS: BP 131/80
[2016-06-17 06:32] LABS: ANION GAP 10 MEQ/L (8-16); BLOOD UREA NITROGEN 5 MG/DL (7-18); CALCIUM LEVEL 9.3 MG/DL (8.5-10.1); CARBON DIOXIDE LEVEL 24 MEQ/L (21-32); CHLORIDE LEVEL 105 MEQ/L (98-107); CREATININE FOR GFR 0.52 MG/DL (0.55-1.02); GLOMERULAR FILTRATION RATE > 60.0 (>51); GLUCOSE, FASTING 241 MG/DL (70-105); MAGNESIUM LEVEL 1.7 MG/DL (1.8-2.4); POTASSIUM SERUM 3.6 MEQ/L (3.5-5.1); SODIUM LEVEL 139 MEQ/L (136-145)
[2016-06-17] MEDS: SUCRALFATE 1 GM TAB PO SCH ×2 (07:50→11:02)
[2016-06-17] MEDS: AMITRIPTYLINE 50 MG TAB PO SCH (07:50)
[2016-06-17] MEDS: CEFDINIR 300 MG CAP (OMNICEF) PO SCH (07:51)
[2016-06-17] MEDS: HumaLOG INSULIN (NovoLOG) PER UNIT SC SCH ×2 (07:51→11:49)
[2016-06-17] MEDS: PANTOPRAZOLE 40MG TAB (PROTONIX) PO SCH (07:51)
[2016-06-17] MEDS: ENOXAPARIN 40 MG/0.4 ML SYRINGE (J1650) SC SCH (07:51)
[2016-06-17] MEDS: SODIUM CHLORIDE 0.9% INJ 10 ML SYR IV SCH (07:52)
[2016-06-17] MEDS: IPRATROPIUM 0.5MG/ALBUTEROL 2.5MG INH SOL UD 3ML (DUONEB)(J7620) INH SCH (08:00)
[2016-06-17] MEDS ORDERED: CEFD1CAP8 PO (08:57)
[2016-06-17 10:00] VITALS: BP 114/73
[2016-06-17] MEDS: SYMBICORT 160/4.5MCG INHALER 6GM INH SCH (10:00)
--- NOTE | 2016-07-20 15:12 | DSES ---
DATE OF ADMISSION: 06/11/2016 DATE OF DISCHARGE: 06/17/2016 PRINCIPAL DIAGNOSIS: This parastomal hernia. ASSOCIATED DIAGNOSES: 1. History of chronic abdominal pain. 2. History of chronic pain syndrome. 3. History of scalp lesion. 4. History of lumpectomies. 5. History of hysterectomy. 6. History of ovarian cyst. 7. History of bilateral sympathectomy. 8. History of arteriovenous (AV) fistula repair. 9. History of cholecystectomy. 10. History of small bowel obstructions. 11. History of multiple large bowel obstructions. 12. History of multiple colonic resections. 13. History of multiple hernia repairs. 14. History of multiple parastomal hernia repairs. 15. History of dorsal column stimulator placement for some chronic abdominal as well as lower extremity pain. 16. History of diabetes mellitus. 17. History of hypomagnesemia. 18. History of chronic nausea. 19. History of constipation. 20. History of irritable bowel syndrome. 21. History of allergies to approximately 35-40 different medications. PROCEDURE PERFORMED: Parastomal hernia repair on 06/11/2016. BRIEF HOSPITAL COURSE SUMMARY: The patient was admitted with the diagnosis of a recurrent parastomal hernia, underwent repair of this parastomal hernia. Operatively the patient did relatively well from a postoperative pain discomfort standpoint. She continued to be on her typical Dilaudid injections and seemed to have adequate pain relief with this. She had slow progressive return of bowel function and eventually was discharged home after having normal bowel function and able to take care of her ostomy itself. She had the colostomy which was functioning well. Her other medical issues were followed and taken care of by her primary care provider throughout her hospitalization. Her medications at the time of discharge include her usual medications which include amitriptyline, Imodium lactate, Astelin, Symbicort, Zyrtec, Lopid, Glucerna, Dilaudid, insulin, lactulose, magnesium oxide, Reglan, Nasacort, Zofran, potassium, Zantac, simethicone, Carafate, tizanidine, cefdinir. She was to followup with her primary care provider in one week and to followup with myself in 2-3 weeks, sooner if there is any question, concerns, fevers or chills.
== END 2016-06-17 12:35 | disposition home health service (06) | DRG 227 ==
LOC: M OR 06:05 → M MSPAV 11:51
PROVIDERS: ADMIT Surgery; ATTEND Surgery
PROC: 0DN80ZZ Release Small Intestine, Open Approach (ICD-10-PCS; 2016-06-11)
PROC: 0WUF0JZ Supplement Abdominal Wall with Synthetic Substitute, Open Approach (ICD-10-PCS; principal; 2016-06-11 07:30)
DX: K43.3 Parastomal hernia with obstruction, without gangrene (principal); E83.42 Hypomagnesemia; E11.9 Type 2 diabetes mellitus without complications; J45.909 Unspecified asthma, uncomplicated; G89.4 Chronic pain syndrome; R51 Headache; K59.00 Constipation, unspecified; Z88.8 Allergy status to other drugs, medicaments and biological substances; Z90.710 Acquired absence of both cervix and uterus; Z90.49 Acquired absence of other specified parts of digestive tract; Z79.4 Long term (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; Z79.899 Other long term (current) drug therapy

== ENCOUNTER 2016-06-19 06:46 | Outpatient (CLI) | payer OTHER ==
[~2016-06-19] VITALS: Ht 170.2 cm; Wt 77.1 kg
[~2016-06-19 06:46] MED LIST changes: +CEFD1CAP8 PO; +COLA100C PO; -COLA100C3 PO; +HEPA1INJ IV; -HEPA1INJ4 IV; +ONDANSETRON 4MG/2ML VIAL (J2405) IV ONE; +SODIUM CHLORIDE 0.9% INJ 10 ML SYR IV SCH
== END 2016-06-19 07:30 | disposition home or self-care (01) ==
LOC: M INFU 06:46
PROVIDERS: ATTEND Family Medicine
DX: E83.42 Hypomagnesemia (principal); Z79.899 Other long term (current) drug therapy; Z79.4 Long term (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; Z88.1 Allergy status to other antibiotic agents; Z88.5 Allergy status to narcotic agent; Z88.0 Allergy status to penicillin; Z91.048 Other nonmedicinal substance allergy status; Z91.018 Allergy to other foods; Z91.02 Food additives allergy status
CPT/HCPCS: 36415; 83735; 96365; J2405

== ENCOUNTER 2016-06-21 06:39 | Outpatient (CLI) | payer OTHER ==
[~2016-06-21] VITALS: Ht 170.2 cm; Wt 77.1 kg
[~2016-06-21 06:39] MED LIST changes: +MAGNESIUM SULFATE 1 GM/100 ML D5W BAG (10MG/ML) (J3475) IV SCH
[2016-06-21] MEDS ORDERED: PRED20TA PO ×2 (18:32→23:56)
[2016-06-21] MEDS ORDERED: VITMTA PO (23:52)
[2016-06-21] MEDS ORDERED: ROBI30SU PO (23:53)
== END 2016-06-21 11:30 | disposition home or self-care (01) ==
LOC: M INFU 06:39
PROVIDERS: ATTEND Family Medicine
DX: E83.42 Hypomagnesemia (principal); Z79.899 Other long term (current) drug therapy; Z79.4 Long term (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; Z88.0 Allergy status to penicillin; Z88.1 Allergy status to other antibiotic agents; Z88.5 Allergy status to narcotic agent; Z91.02 Food additives allergy status; Z91.018 Allergy to other foods; Z91.048 Other nonmedicinal substance allergy status
CPT/HCPCS: 96365; 96366; 96374; J2405; J3475

== ENCOUNTER 2016-06-21 17:40 | Inpatient (IN) | payer OTHER ==
[~2016-06-21] VITALS: Ht 170.2 cm; Wt 75.2 kg
[~2016-06-21 17:40] MED LIST changes: -COLA100C PO; +COLA100C3 PO; -HEPA1INJ IV; +HEPA1INJ4 IV; -MAGNESIUM SULFATE 1 GM/100 ML D5W BAG (10MG/ML) (J3475) IV SCH; -ONDANSETRON 4MG/2ML VIAL (J2405) IV ONE; -SODIUM CHLORIDE 0.9% INJ 10 ML SYR IV SCH
[2016-06-21] MEDS ORDERED: NS 1,000 ML IV SCH ×2 (18:26→21:30)
[2016-06-21] MEDS ORDERED: NS 1,000 ML IV ONE (18:30)
[2016-06-21] MEDS ORDERED: ONDANSETRON 4MG/2ML VIAL (J2405) IV ONE (18:30)
[2016-06-21] MEDS ORDERED: PRED20TA PO ×2 (18:32→23:56)
[2016-06-21] MEDS: HYDROmorphone HCL 1 MG/ML SYRINGE (J1170) IV PRN ×5 (19:16→23:51)
[2016-06-21 19:33] LABS: BASO % 0.1 % (0.0-1.0); EOS % 0.2 % (0.0-3.0); LARGE UNSTAINED CELL # 0.1 K/mm3 (0.0-0.4); LARGE UNSTAINED CELL % 0.8 % (0.0-4.0); LYMPH # 0.6 K/mm3 (1.5-4.5); LYMPH % 10.1 % (24.0-44.0); MEAN CORPUSCULAR HEMOGLOBIN 30.3 pg (27.0-33.0); MEAN CORPUSCULAR VOLUME 94.9 fl (80.0-96.0); MONO # 0.1 K/mm3 (0.0-0.8); MONO % 2.3 % (0.0-5.0); NEUTROPHILS # 4.8 K/mm3 (1.8-7.7); NEUTROPHILS % 86.5 % (36.0-66.0); PLATELET COUNT, AUTOMATED 409 k/mm3 (150-450); WHITE BLOOD COUNT 5.6 K/mm3 (4.0-10.0)
[2016-06-21] MEDS ORDERED: GASTROGRAFIN SOLUTION 30ML (Q9963) As Ordered ONE (19:47)
[2016-06-21 19:54] LABS: ALBUMIN 2.8 GM/DL (3.2-5.2); ALBUMIN/GLOBULIN RATIO 0.57 (1.00-1.93); ALKALINE PHOSPHATASE 114 U/L (45-117); ALT/SGPT 18 U/L (12-78); ANION GAP 9 MEQ/L (8-16); AST/SGOT 11 U/L (15-37); BILIRUBIN,DIRECT < 0.1 MG/DL (0.0-0.2); BILIRUBIN,TOTAL 0.1 MG/DL (0.2-1.0); BLOOD UREA NITROGEN 19 MG/DL (7-18); CALCIUM LEVEL 9.6 MG/DL (8.5-10.1); CARBON DIOXIDE LEVEL 29 MEQ/L (21-32); CHLORIDE LEVEL 98 MEQ/L (98-107); GLOMERULAR FILTRATION RATE > 60.0 (>51); MAGNESIUM LEVEL 1.9 MG/DL (1.8-2.4); POTASSIUM SERUM 4.4 MEQ/L (3.5-5.1); SODIUM LEVEL 136 MEQ/L (136-145); TOTAL PROTEIN 7.7 GM/DL (6.4-8.2)
[2016-06-21 19:59] LABS: GLUCOSE, FASTING 422 MG/DL (70-105)
[2016-06-21] MEDS ORDERED: GASTROGRAFIN SOLUTION 30ML (Q9963) PO ONE ×2 (20:15)
[2016-06-21 21:12] LABS: VENOUS O2 SATURATION 81.4 % (60.0-80.0); VENOUS PARTIAL PRESSURE CO2 51.5 mmHg (38.0-50.0); VENOUS PARTIAL PRESSURE O2 48.8 mmHg (30.0-50.0); VENOUS STANDARD HCO3 26.8 MEQ/L; VENOUS TOTAL CO2 30.7 MEQ/L (24.0-28.0)
[2016-06-21] MEDS ORDERED: HumuLIN R (REGULAR) INSULIN (NovoLIN R) **100U/ML** PER UNIT IV ONE (21:30)
[2016-06-21] MEDS ORDERED: METOCLOPRAMIDE INJ 10MG/2ML VIAL (J2765) IV ONE (21:30)
[2016-06-21] MEDS ORDERED: DEXTROMETHORPHAN 60MG/10ML SUSP 90ML BTL(DELSYM) PO PRN (22:00)
--- NOTE | 2016-06-21 22:50 | REPUSA ---
CLINICAL HISTORY: Abdominal pain, parastomal hernia repair. TECHNIQUE: Multiple axial CT images were obtained through the abdomen and pelvis after administratio n of oral contrast material only. COMMENTS: The liver is of uniform attenuation without mass or defect. There is no intra or extrahepatic biliar y ductal dilatation. The spleen is normal. Status post cholecystectomy. The pancreas is of normal contour and attenuation characteristics. There is no evidence of adrenal mass. The kidneys are normal in size, shape and configuration. No renal or ureteral calculi are identified . There is no hydroureter or hydronephrosis. Status post ventral hernia repair. Surgical clips are seen throughout the abdomen and pelvis. There is no evidence for appendicitis. There is no bowel wall thickening. There are multiple dilate d loops of small bowel measuring up to 4 cm. Oral contrast does not pass through the large bowel. F indings are compatible with small bowel obstruction. Colostomy is present in the left lower quadrant . There is no evidence of abdominal ascites or lymphadenopathy. There is no evidence of intrinsic or extrinsic bladder mass. There is no pelvic ascites or lymphaden opathy. There is confluent opacity noted in the left lung base and to a lesser extent right lung base. This is compatible with pneumonia. There are no pleural effusions. The bony structures are free of lytic or blastic lesions. Multilevel degenerative changes are seen i nvolving the thoracolumbar spine. Scattered calcifications are seen involving the aorta and major branches compatible with atherosclero sis. There is hardware in place in the right flank with intraspinal catheter noted. IMPRESSION: 1. Findings compatible with small bowel obstruction. 2. Pneumonia. 3. Additional findings as above. Thank you for your kind referral of this patient. We appreciate the opportunity to participate in thi s patient's care.
[2016-06-21] MEDS ORDERED: CETACAINE SPRAY 20GM (FLOOR STOCK) TOP ONE (23:30)
[2016-06-21] MEDS ORDERED: LIDOCAINE VISCOUS 2% SOLN 15ML UDC PO ONE (23:30)
[2016-06-21] MEDS ORDERED: VITMTA PO (23:52)
[2016-06-21] MEDS ORDERED: ROBI30SU PO (23:53)
[2016-06-22] MEDS: HYDROmorphone HCL 1 MG/ML SYRINGE (J1170) IV PRN ×6 (01:01→23:20)
[2016-06-22 01:30] VITALS: BP 128/69
[2016-06-22 06:00] VITALS: BP 132/76
[2016-06-22] MEDS ORDERED: MORPHINE 2 MG/ML 1ML SYRINGE IV PRN (06:15)
[2016-06-22] MEDS ORDERED: HYDROmorphone HCL 1 MG/ML SYRINGE (J1170) IV ONE (06:30)
[2016-06-22] MEDS: LR 1,000 ML IV SCH ×3 (06:44→20:22)
--- NOTE | 2016-06-22 07:23 | REP ---
REASON: Abdominal pain. Comparison chest 06/14/2016. The comparison frontal view of the chest shows a few asymmetric basilar opacities consistent with subsegmental atelectatic changes. Supine and upright views of the abdomen show the intestinal gas pattern to be nonspecific. There is no evidence of free intraperitoneal air. There is no change in the appearance of the dorsal column stimulator tip. Battery and hardware is seen, right lower quadrant. Multiple surgical clips and stables are seen in the abdomen and pelvis from previous surgery. The osseous structures are within normal limits for the patient's age. IMPRESSION: Bibasilar lung field opacities likely subsegmental atelectatic changes. Plain film examination of the abdomen and pelvis shows no evidence of acute intraabdominal or intrapelvic disease. Signed by Jeff Benz DO 06/22/2016 10:04 A
[2016-06-22] MEDS: SYMBICORT 160/4.5MCG INHALER 6GM INH SCH ×2 (09:00→19:18)
[2016-06-22] MEDS ORDERED: LACTIC ACID 12% LOTION 225 GM BTL TOP PRN (11:15)
[2016-06-22] MEDS ORDERED: BISACODYL 10 MG SUPP PR PRN (11:15)
[2016-06-22] MEDS ORDERED: DEXTROSE 50% 50 ML SYRINGE IV PRN (12:15)
[2016-06-22] MEDS ORDERED: GLUCOSE 4 GM CHEW TABLET PO PRN (12:15)
[2016-06-22] MEDS ORDERED: GLUCAGON FOR INJ 1 MG VIAL (J1610) SC PRN (12:15)
[2016-06-22] MEDS: HEPARIN SOD (PORCINE) 5000 UNITS/ML VIAL SC SCH ×2 (13:24→20:22)
[2016-06-22] MEDS: PANTOPRAZOLE 40MG INJ (PROTONIX) (C9113) IV SCH (13:24)
[2016-06-22] MEDS: metroNIDAZOLE 500 MG in APPROPRIATE DILUENT 1 EA IV SCH ×2 (13:26→20:24)
[2016-06-22] MEDS: HumaLOG INSULIN (NovoLOG) PER UNIT SC SCH ×3 (13:26→23:24)
[2016-06-22] MEDS: GEMFIBROZIL 600 MG TAB PO SCH (13:27)
[2016-06-22] MEDS: AMITRIPTYLINE 50 MG TAB PO SCH ×2 (13:27→20:23)
[2016-06-22] MEDS: predniSONE 20 MG TAB PO SCH (13:27)
[2016-06-22] MEDS: MOM 30ML SUSPENSION UDC PO SCH (13:29)
[2016-06-22] MEDS: CEFDINIR 300 MG CAP (OMNICEF) PO SCH ×2 (13:30→20:22)
[2016-06-22 14:00] VITALS: BP 142/77
[2016-06-22] MEDS: ONDANSETRON 4MG/2ML VIAL (J2405) IV PRN ×2 (14:15→17:23)
[2016-06-22] MEDS: SENOKOT S TAB PO SCH (20:22)
[2016-06-22] MEDS: AZELASTINE 137MCG NASAL SPY 30 ML (ASTELIN) SCH (20:25)
[2016-06-22 22:00] VITALS: BP 136/75
[2016-06-23] MEDS: LR 1,000 ML IV SCH ×4 (00:22→20:39)
[2016-06-23] MEDS: metroNIDAZOLE 500 MG in APPROPRIATE DILUENT 1 EA IV SCH ×3 (03:23→20:36)
[2016-06-23] MEDS: HYDROmorphone HCL 1 MG/ML SYRINGE (J1170) IV PRN ×6 (03:23→21:29)
[2016-06-23 06:00] VITALS: BP 159/78
[2016-06-23] MEDS: HEPARIN SOD (PORCINE) 5000 UNITS/ML VIAL SC SCH ×3 (06:04→21:29)
[2016-06-23] MEDS: HumaLOG INSULIN (NovoLOG) PER UNIT SC SCH ×3 (06:11→18:00)
[2016-06-23 06:20] LABS: MEAN CORPUSCULAR HEMOGLOBIN 30.6 pg (27.0-33.0); MEAN CORPUSCULAR HGB CONC 32.1 g/dl (32.0-36.5); MEAN CORPUSCULAR VOLUME 95.5 fl (80.0-96.0); RED CELL DISTRIBUTION WIDTH 13.3 % (11.5-14.5); WHITE BLOOD COUNT 7.9 K/mm3 (4.0-10.0)
[2016-06-23 07:00] LABS: ALBUMIN 2.7 GM/DL (3.2-5.2); ALBUMIN/GLOBULIN RATIO 0.69 (1.00-1.93); ALKALINE PHOSPHATASE 107 U/L (45-117); ALT/SGPT 14 U/L (12-78); ANION GAP 8 MEQ/L (8-16); AST/SGOT 14 U/L (15-37); BILIRUBIN,TOTAL 0.1 MG/DL (0.2-1.0); BLOOD UREA NITROGEN 8 MG/DL (7-18); CALCIUM LEVEL 9.1 MG/DL (8.5-10.1); CARBON DIOXIDE LEVEL 29 MEQ/L (21-32); CHLORIDE LEVEL 105 MEQ/L (98-107); CREATININE FOR GFR 0.49 MG/DL (0.55-1.02); GLOMERULAR FILTRATION RATE > 60.0 (>51); GLUCOSE, FASTING 182 MG/DL (70-105); MAGNESIUM LEVEL 1.9 MG/DL (1.8-2.4); POTASSIUM SERUM 4.2 MEQ/L (3.5-5.1); SODIUM LEVEL 142 MEQ/L (136-145); TOTAL PROTEIN 6.6 GM/DL (6.4-8.2)
[2016-06-23] MEDS: SYMBICORT 160/4.5MCG INHALER 6GM INH SCH ×2 (07:08→19:24)
[2016-06-23] MEDS: SENOKOT S TAB PO SCH ×2 (08:33→20:40)
[2016-06-23] MEDS: predniSONE 20 MG TAB PO SCH (08:33)
[2016-06-23] MEDS: GEMFIBROZIL 600 MG TAB PO SCH (08:33)
[2016-06-23] MEDS: ONDANSETRON 4MG/2ML VIAL (J2405) IV PRN (08:33)
[2016-06-23] MEDS: AZELASTINE 137MCG NASAL SPY 30 ML (ASTELIN) SCH ×2 (08:34→20:40)
[2016-06-23] MEDS: PANTOPRAZOLE 40MG INJ (PROTONIX) (C9113) IV SCH (08:34)
[2016-06-23] MEDS: CEFDINIR 300 MG CAP (OMNICEF) PO SCH ×2 (08:34→20:40)
[2016-06-23] MEDS: MOM 30ML SUSPENSION UDC PO SCH (08:34)
[2016-06-23] MEDS: AMITRIPTYLINE 50 MG TAB PO SCH ×2 (08:35→20:39)
[2016-06-23] MEDS: BISACODYL 10 MG SUPP PR SCH ×2 (12:04→20:41)
[2016-06-23 13:55] VITALS: BP 150/80
--- NOTE | 2016-06-23 16:07 | HPE ---
DATE OF ADMISSION: 06/21/2016 CHIEF COMPLAINT: Abdominal pain. HISTORY OF PRESENT ILLNESS: The patient is 55-year-old female well-known to our service. She has had multiple hospital admissions over the years for bowel obstructions. She recently was discharged on Friday after having a parastomal hernia repair with Dr. Campuzano. Starting Friday she was having increased abdominal pains. She has not had any output from her ostomy since Friday. This has been getting progressively worse. Last evening she came into the ER with nausea, vomiting and this abdominal distension. NG tube was placed and revealed a lot of brown discharge. CT scan also was obtained which showed signs of a diffuse small bowel obstruction without a definitive transition point. Therefore, I was called to evaluate. Her white count is normal, lactic acid was normal on admission. However, she is having significant pain but that is also hard to discern since she does have significant pain at baseline and also just had surgery 8 days ago. Other than the nausea, vomiting, abdominal pain, she has no other new symptoms. ALLERGIES: Are multiple, please see medical record, as well as for her medications. PAST MEDICAL HISTORY: Diabetes, asthma, hyperlipidemia, gastroesophageal reflux disease, nephrolithiasis, allergic rhinitis, maxillary sinusitis, chronic headaches, reflex sympathetic dystrophy, history of DVTs, and multiple abdominal surgeries. PAST SURGICAL HISTORY: Lumpectomy, total hysterectomy, two ovarian cyst removals, bilateral sympathectomy, AV fistula repair in the left leg, cholecystectomy, small bowel obstruction repair 2001, abdominal hernia repair 2004, ventral hernia repair 2009, dorsal column stimulator placement and replacement 2010, another small bowel resection and ventral hernia repair 2012, parastomal hernia repair as well as two other abdominal hernia repairs 2012, another abdominal hernia repair in 2013, parastomal hernia repair 2014, and another parastomal hernia repair 8 days ago. FAMILY HISTORY: Noncontributory. SOCIAL HISTORY: Denies drug, alcohol, tobacco abuse. REVIEW OF SYSTEMS: Pertinent positives and negatives as stated in HPI. PHYSICAL EXAMINATION: GENERAL: Patient is awake and alert, oriented times three. VITAL SIGNS : Temperature 96.6, pulse 80, respirations 18, blood pressure 132/76, pulse oximetry 97% room air. HEENT: Pupils equally round and react to light and accommodation. HEART: S1, S2, regular rate and rhythm. LUNGS: Clear to auscultation bilaterally. ABDOMEN: Soft, distended, light tenderness to palpation. No rebounding, guarding or rigidity. No signs of peritonitis. EXTREMITIES: Bilateral lower extremity edema. LABORATORY DATA: White count 5.6, hemoglobin 11, platelets 409, sodium 136, potassium 4.4, magnesium 1.9, lactic acid 1.9, lipase 97. IMAGING STUDIES: CT abdomen and pelvis shows findings compatible with small bowel obstruction. Bilateral lower lobe pneumonia. ASSESSMENT/PLAN: The patient is a 55-year-old female postoperative from a parastomal hernia repair, currently presenting with signs of small bowel obstruction, could be secondary to adhesions from surgery versus internal hernia. No signs of bowel ischemia at this time, normal white count and lactic acid is normal as well. Plan is for IV fluids, ambulation, incentive spirometry and antibiotics for the pneumonia, NG tube for abdominal decompression. We will continue to monitor her closely with labs and serial abdominal exams. If she does not improve over the next 48-72 hours, she may require reoperation however, this obstruction may resolve on its own.
[2016-06-23 22:00] VITALS: BP 149/78
[2016-06-24] MEDS: HumaLOG INSULIN (NovoLOG) PER UNIT SC SCH ×4 (00:08→18:49)
[2016-06-24] MEDS: HYDROmorphone HCL 1 MG/ML SYRINGE (J1170) IV PRN ×8 (00:22→21:54)
[2016-06-24] MEDS: LR 1,000 ML IV SCH ×2 (03:28→09:30)
[2016-06-24] MEDS: ONDANSETRON 4MG/2ML VIAL (J2405) IV PRN (03:28)
[2016-06-24] MEDS: metroNIDAZOLE 500 MG in APPROPRIATE DILUENT 1 EA IV SCH ×3 (03:29→21:42)
[2016-06-24] MEDS: HEPARIN SOD (PORCINE) 5000 UNITS/ML VIAL SC SCH ×3 (05:42→21:44)
[2016-06-24] MEDS: ACETAMINOPHEN TAB 650MG DOSE (2X325MG) PO PRN ×2 (05:43→12:10)
[2016-06-24 06:00] VITALS: BP 133/60
[2016-06-24] MEDS: SYMBICORT 160/4.5MCG INHALER 6GM INH SCH ×2 (07:33→20:49)
[2016-06-24] MEDS: BISACODYL 10 MG SUPP PR SCH ×2 (09:00→21:00)
[2016-06-24] MEDS: GEMFIBROZIL 600 MG TAB PO SCH (09:28)
[2016-06-24] MEDS: SENOKOT S TAB PO SCH ×2 (09:28→21:44)
[2016-06-24] MEDS: CEFDINIR 300 MG CAP (OMNICEF) PO SCH ×2 (09:28→21:43)
[2016-06-24] MEDS: PANTOPRAZOLE 40MG INJ (PROTONIX) (C9113) IV SCH (09:28)
[2016-06-24] MEDS: MOM 30ML SUSPENSION UDC PO SCH (09:28)
[2016-06-24] MEDS: predniSONE 20 MG TAB PO SCH (09:29)
[2016-06-24] MEDS: AMITRIPTYLINE 50 MG TAB PO SCH ×2 (09:29→21:44)
[2016-06-24] MEDS: AZELASTINE 137MCG NASAL SPY 30 ML (ASTELIN) SCH ×2 (09:30→21:44)
[2016-06-24 11:15] LABS: MEAN CORPUSCULAR HEMOGLOBIN 30.8 pg (27.0-33.0); MEAN CORPUSCULAR HGB CONC 32.3 g/dl (32.0-36.5); MEAN CORPUSCULAR VOLUME 95.4 fl (80.0-96.0); RED CELL DISTRIBUTION WIDTH 13.4 % (11.5-14.5); WHITE BLOOD COUNT 6.3 K/mm3 (4.0-10.0)
[2016-06-24 11:43] LABS: ALBUMIN 2.7 GM/DL (3.2-5.2); ALBUMIN/GLOBULIN RATIO 0.75 (1.00-1.93); ALKALINE PHOSPHATASE 95 U/L (45-117); ALT/SGPT 16 U/L (12-78); ANION GAP 14 MEQ/L (8-16); AST/SGOT 13 U/L (15-37); BILIRUBIN,TOTAL 0.2 MG/DL (0.2-1.0); BLOOD UREA NITROGEN 5 MG/DL (7-18); CALCIUM LEVEL 9.3 MG/DL (8.5-10.1); CARBON DIOXIDE LEVEL 27 MEQ/L (21-32); CHLORIDE LEVEL 99 MEQ/L (98-107); CREATININE FOR GFR 0.35 MG/DL (0.55-1.02); GLOMERULAR FILTRATION RATE > 60.0 (>51); GLUCOSE, FASTING 118 MG/DL (70-105); MAGNESIUM LEVEL 1.7 MG/DL (1.8-2.4); POTASSIUM SERUM 3.3 MEQ/L (3.5-5.1); SODIUM LEVEL 140 MEQ/L (136-145); TOTAL PROTEIN 6.3 GM/DL (6.4-8.2)
[2016-06-24] MEDS ORDERED: GASTROGRAFIN SOLUTION 30ML (Q9963) PO ONE (11:45)
[2016-06-24 14:00] VITALS: BP 144/80
[2016-06-24] MEDS: KCL 20MEQ in NS 1000ML 1,000 ML IV SCH ×2 (14:37→20:26)
[2016-06-24 22:00] VITALS: BP 155/72
[2016-06-25] MEDS: HumaLOG INSULIN (NovoLOG) PER UNIT SC SCH ×4 (01:44→17:37)
[2016-06-25] MEDS: HYDROmorphone HCL 1 MG/ML SYRINGE (J1170) IV PRN ×7 (01:45→21:24)
--- NOTE | 2016-06-25 01:55 | REP ---
Clinical: Follow up small bowel obstruction. Technique: Upright view of the chest with supine and upright views of the abdomen and pelvis. Comparison: 06/14/2016, 05/23/2016. Findings: Frontal view of the chest demonstrates nasogastric tube within the upper esophagus requiring repositioning. Left lower lobe opacity and blunting to the costophrenic angle suggests infiltrate and possible effusion. No free air below the diaphragm to suspect pneumoperitoneum. Bowel gas pattern is nonspecific and without obvious obstruction or perforation. Ostomy overlies the left mid pelvis. Postsurgical changes are noted as well as epidural stimulator at the thoracic level. Skeletal structures are intact. Impression: 1. Nasogastric tube in the proximal esophagus requires repositioning. 2. Nonspecific bowel gas pattern. Signed by Darius Roth MD 06/25/2016 01:46 A
[2016-06-25] MEDS: KCL 20MEQ in NS 1000ML 1,000 ML IV SCH ×4 (03:20→21:27)
[2016-06-25] MEDS: HEPARIN SOD (PORCINE) 5000 UNITS/ML VIAL SC SCH ×3 (05:21→21:28)
[2016-06-25] MEDS: metroNIDAZOLE 500 MG in APPROPRIATE DILUENT 1 EA IV SCH ×3 (05:21→21:24)
[2016-06-25 06:00] VITALS: BP 136/80
[2016-06-25] MEDS: SYMBICORT 160/4.5MCG INHALER 6GM INH SCH ×2 (07:14→21:00)
[2016-06-25 07:19] LABS: MEAN CORPUSCULAR HEMOGLOBIN 30.9 pg (27.0-33.0); MEAN CORPUSCULAR HGB CONC 32.6 g/dl (32.0-36.5); MEAN CORPUSCULAR VOLUME 94.9 fl (80.0-96.0); RED CELL DISTRIBUTION WIDTH 13.3 % (11.5-14.5); WHITE BLOOD COUNT 5.9 K/mm3 (4.0-10.0)
[2016-06-25 07:51] LABS: ALBUMIN 2.7 GM/DL (3.2-5.2); ALBUMIN/GLOBULIN RATIO 0.71 (1.00-1.93); ALKALINE PHOSPHATASE 93 U/L (45-117); ALT/SGPT 21 U/L (12-78); ANION GAP 12 MEQ/L (8-16); AST/SGOT 23 U/L (15-37); BILIRUBIN,TOTAL 0.2 MG/DL (0.2-1.0); BLOOD UREA NITROGEN 7 MG/DL (7-18); CALCIUM LEVEL 9.1 MG/DL (8.5-10.1); CARBON DIOXIDE LEVEL 25 MEQ/L (21-32); CHLORIDE LEVEL 104 MEQ/L (98-107); CREATININE FOR GFR 0.37 MG/DL (0.55-1.02); GLOMERULAR FILTRATION RATE > 60.0 (>51); GLUCOSE, FASTING 95 MG/DL (70-105); MAGNESIUM LEVEL 1.6 MG/DL (1.8-2.4); POTASSIUM SERUM 3.7 MEQ/L (3.5-5.1); SODIUM LEVEL 141 MEQ/L (136-145); TOTAL PROTEIN 6.5 GM/DL (6.4-8.2)
[2016-06-25] MEDS: BISACODYL 10 MG SUPP PR SCH ×2 (09:00→21:00)
[2016-06-25] MEDS: MOM 30ML SUSPENSION UDC PO SCH (09:09)
[2016-06-25] MEDS: PANTOPRAZOLE 40MG INJ (PROTONIX) (C9113) IV SCH (09:09)
[2016-06-25] MEDS: AZELASTINE 137MCG NASAL SPY 30 ML (ASTELIN) SCH ×2 (09:09→21:26)
[2016-06-25] MEDS: SENOKOT S TAB PO SCH ×2 (09:09→21:27)
[2016-06-25] MEDS: GEMFIBROZIL 600 MG TAB PO SCH (09:10)
[2016-06-25] MEDS: AMITRIPTYLINE 50 MG TAB PO SCH ×2 (09:10→21:27)
[2016-06-25] MEDS: CEFDINIR 300 MG CAP (OMNICEF) PO SCH ×2 (09:10→21:27)
[2016-06-25] MEDS: predniSONE 20 MG TAB PO SCH (09:10)
[2016-06-25] MEDS ORDERED: GLYCERIN ADULT SUPP PR PRN (10:30)
[2016-06-25 10:55] VITALS: BP 155/78
[2016-06-25] MEDS: MAG SULF 1GM/100ML (MAG RUN) 1 GM in APPROPRIATE DILUENT 1 EA IV SCH ×4 (11:22→15:14)
[2016-06-25 14:00] VITALS: BP 139/72
[2016-06-25 22:00] VITALS: BP 128/68
[2016-06-26] MEDS: HYDROmorphone HCL 1 MG/ML SYRINGE (J1170) IV PRN ×8 (00:22→22:05)
[2016-06-26] MEDS: ACETAMINOPHEN TAB 650MG DOSE (2X325MG) PO PRN (02:29)
[2016-06-26] MEDS: metroNIDAZOLE 500 MG in APPROPRIATE DILUENT 1 EA IV SCH ×3 (03:26→20:07)
[2016-06-26] MEDS: HEPARIN SOD (PORCINE) 5000 UNITS/ML VIAL SC SCH ×3 (05:30→22:05)
[2016-06-26] MEDS: KCL 20MEQ in NS 1000ML 1,000 ML IV SCH ×3 (05:30→19:20)
[2016-06-26] MEDS: HumaLOG INSULIN (NovoLOG) PER UNIT SC SCH ×4 (05:34→17:32)
[2016-06-26 06:00] VITALS: BP 135/78
[2016-06-26 06:20] LABS: MEAN CORPUSCULAR HEMOGLOBIN 29.9 pg (27.0-33.0); MEAN CORPUSCULAR HGB CONC 31.6 g/dl (32.0-36.5); MEAN CORPUSCULAR VOLUME 94.6 fl (80.0-96.0); RED CELL DISTRIBUTION WIDTH 13.5 % (11.5-14.5); WHITE BLOOD COUNT 6.7 K/mm3 (4.0-10.0)
[2016-06-26 06:28] LABS: ALBUMIN 2.8 GM/DL (3.2-5.2); ALBUMIN/GLOBULIN RATIO 0.65 (1.00-1.93); ALKALINE PHOSPHATASE 90 U/L (45-117); ALT/SGPT 30 U/L (12-78); ANION GAP 12 MEQ/L (8-16); AST/SGOT 31 U/L (15-37); BILIRUBIN,TOTAL 0.3 MG/DL (0.2-1.0); BLOOD UREA NITROGEN 6 MG/DL (7-18); CARBON DIOXIDE LEVEL 23 MEQ/L (21-32); CHLORIDE LEVEL 106 MEQ/L (98-107); CREATININE FOR GFR 0.41 MG/DL (0.55-1.02); GLOMERULAR FILTRATION RATE > 60.0 (>51); GLUCOSE, FASTING 90 MG/DL (70-105); MAGNESIUM LEVEL 1.9 MG/DL (1.8-2.4); POTASSIUM SERUM 3.7 MEQ/L (3.5-5.1); SODIUM LEVEL 141 MEQ/L (136-145); TOTAL PROTEIN 7.1 GM/DL (6.4-8.2)
[2016-06-26] MEDS: SYMBICORT 160/4.5MCG INHALER 6GM INH SCH ×2 (07:33→20:51)
[2016-06-26] MEDS: BISACODYL 10 MG SUPP PR SCH ×2 (09:41→20:07)
[2016-06-26] MEDS: GEMFIBROZIL 600 MG TAB PO SCH (09:41)
[2016-06-26] MEDS: MOM 30ML SUSPENSION UDC PO SCH (09:41)
[2016-06-26] MEDS: predniSONE 20 MG TAB PO SCH (09:41)
[2016-06-26] MEDS: SENOKOT S TAB PO SCH ×2 (09:41→20:07)
[2016-06-26] MEDS: PANTOPRAZOLE 40MG INJ (PROTONIX) (C9113) IV SCH (09:41)
[2016-06-26] MEDS: CEFDINIR 300 MG CAP (OMNICEF) PO SCH ×2 (09:41→20:07)
[2016-06-26] MEDS: AMITRIPTYLINE 50 MG TAB PO SCH ×2 (09:41→20:07)
[2016-06-26] MEDS: AZELASTINE 137MCG NASAL SPY 30 ML (ASTELIN) SCH ×2 (09:42→20:08)
[2016-06-26 14:00] VITALS: BP_SYST 131; BP_SYST 135; BP_DIAS 73
[2016-06-26] MEDS: ONDANSETRON 4MG/2ML VIAL (J2405) IV PRN (18:53)
[2016-06-27] MEDS: HumaLOG INSULIN (NovoLOG) PER UNIT SC SCH ×4 (00:21→18:25)
[2016-06-27] MEDS: KCL 20MEQ in NS 1000ML 1,000 ML IV SCH ×4 (00:30→22:00)
[2016-06-27] MEDS: HYDROmorphone HCL 1 MG/ML SYRINGE (J1170) IV PRN ×7 (02:30→21:34)
[2016-06-27] MEDS: SODIUM CHLORIDE 0.9% INJ 10 ML SYR IV PRN (05:14)
[2016-06-27] MEDS: metroNIDAZOLE 500 MG in APPROPRIATE DILUENT 1 EA IV SCH ×3 (05:15→20:11)
[2016-06-27] MEDS: HEPARIN SOD (PORCINE) 5000 UNITS/ML VIAL SC SCH (05:15)
[2016-06-27 05:42] LABS: MEAN CORPUSCULAR HEMOGLOBIN 30.4 pg (27.0-33.0); MEAN CORPUSCULAR VOLUME 94.9 fl (80.0-96.0); RED CELL DISTRIBUTION WIDTH 13.5 % (11.5-14.5); WHITE BLOOD COUNT 6.8 K/mm3 (4.0-10.0)
[2016-06-27 05:59] LABS: ALBUMIN 2.9 GM/DL (3.2-5.2); ALBUMIN/GLOBULIN RATIO 0.76 (1.00-1.93); ALKALINE PHOSPHATASE 91 U/L (45-117); ALT/SGPT 31 U/L (12-78); ANION GAP 13 MEQ/L (8-16); AST/SGOT 31 U/L (15-37); BILIRUBIN,TOTAL 0.2 MG/DL (0.2-1.0); BLOOD UREA NITROGEN 5 MG/DL (7-18); CALCIUM LEVEL 9.1 MG/DL (8.5-10.1); CARBON DIOXIDE LEVEL 19 MEQ/L (21-32); CHLORIDE LEVEL 108 MEQ/L (98-107); CREATININE FOR GFR 0.39 MG/DL (0.55-1.02); GLOMERULAR FILTRATION RATE > 60.0 (>51); GLUCOSE, FASTING 78 MG/DL (70-105); MAGNESIUM LEVEL 1.8 MG/DL (1.8-2.4); POTASSIUM SERUM 4.4 MEQ/L (3.5-5.1); SODIUM LEVEL 140 MEQ/L (136-145); TOTAL PROTEIN 6.7 GM/DL (6.4-8.2)
[2016-06-27 06:00] VITALS: BP 130/74
[2016-06-27] MEDS: SYMBICORT 160/4.5MCG INHALER 6GM INH SCH ×2 (07:56→20:01)
[2016-06-27] MEDS: MOM 30ML SUSPENSION UDC PO SCH (08:56)
[2016-06-27] MEDS: CEFDINIR 300 MG CAP (OMNICEF) PO SCH ×2 (08:56→20:12)
[2016-06-27] MEDS: predniSONE 20 MG TAB PO SCH (08:57)
[2016-06-27] MEDS: GEMFIBROZIL 600 MG TAB PO SCH (08:57)
[2016-06-27] MEDS: SENOKOT S TAB PO SCH ×2 (08:57→20:12)
[2016-06-27] MEDS: AMITRIPTYLINE 50 MG TAB PO SCH ×2 (08:57→20:12)
[2016-06-27] MEDS: PANTOPRAZOLE 40MG INJ (PROTONIX) (C9113) IV SCH (08:57)
[2016-06-27] MEDS: AZELASTINE 137MCG NASAL SPY 30 ML (ASTELIN) SCH ×2 (08:58→20:12)
[2016-06-27] MEDS: SODIUM CHLORIDE 0.9% INJ 10 ML SYR IV SCH (08:58)
[2016-06-27] MEDS: BISACODYL 10 MG SUPP PR SCH ×2 (08:58→20:12)
[2016-06-27] MEDS: ONDANSETRON 4MG/2ML VIAL (J2405) IV PRN ×3 (09:44→18:20)
[2016-06-27 14:00] VITALS: BP 108/61
[2016-06-27 20:35] VITALS: BP 136/70
[2016-06-28] MEDS: ONDANSETRON 4MG/2ML VIAL (J2405) IV PRN ×6 (00:17→22:23)
[2016-06-28] MEDS: HYDROmorphone HCL 1 MG/ML SYRINGE (J1170) IV PRN ×8 (00:45→22:24)
[2016-06-28] MEDS: metroNIDAZOLE 500 MG in APPROPRIATE DILUENT 1 EA IV SCH ×3 (03:37→20:40)
[2016-06-28 05:50] VITALS: BP 127/73
[2016-06-28] MEDS: HumaLOG INSULIN (NovoLOG) PER UNIT SC SCH ×4 (06:00→18:14)
[2016-06-28 06:27] LABS: MEAN CORPUSCULAR HEMOGLOBIN 29.8 pg (27.0-33.0); MEAN CORPUSCULAR HGB CONC 30.9 g/dl (32.0-36.5); MEAN CORPUSCULAR VOLUME 96.5 fl (80.0-96.0); RED CELL DISTRIBUTION WIDTH 13.7 % (11.5-14.5); WHITE BLOOD COUNT 6.4 K/mm3 (4.0-10.0)
[2016-06-28 06:41] LABS: ALBUMIN 2.7 GM/DL (3.2-5.2); ALBUMIN/GLOBULIN RATIO 0.75 (1.00-1.93); ALKALINE PHOSPHATASE 81 U/L (45-117); ALT/SGPT 33 U/L (12-78); ANION GAP 14 MEQ/L (8-16); AST/SGOT 21 U/L (15-37); BILIRUBIN,TOTAL 0.2 MG/DL (0.2-1.0); BLOOD UREA NITROGEN 5 MG/DL (7-18); CARBON DIOXIDE LEVEL 19 MEQ/L (21-32); CHLORIDE LEVEL 108 MEQ/L (98-107); CREATININE FOR GFR 0.35 MG/DL (0.55-1.02); GLOMERULAR FILTRATION RATE > 60.0 (>51); GLUCOSE, FASTING 96 MG/DL (70-105); MAGNESIUM LEVEL 1.6 MG/DL (1.8-2.4); POTASSIUM SERUM 4.3 MEQ/L (3.5-5.1); SODIUM LEVEL 141 MEQ/L (136-145); TOTAL PROTEIN 6.3 GM/DL (6.4-8.2)
[2016-06-28] MEDS: SYMBICORT 160/4.5MCG INHALER 6GM INH SCH ×2 (08:03→20:32)
[2016-06-28] MEDS: PANTOPRAZOLE 40MG INJ (PROTONIX) (C9113) IV SCH (08:19)
[2016-06-28] MEDS: AZELASTINE 137MCG NASAL SPY 30 ML (ASTELIN) SCH ×2 (08:19→20:40)
[2016-06-28] MEDS: SENOKOT S TAB PO SCH ×2 (08:19→20:39)
[2016-06-28] MEDS: predniSONE 20 MG TAB PO SCH (08:19)
[2016-06-28] MEDS: MOM 30ML SUSPENSION UDC PO SCH (08:19)
[2016-06-28] MEDS: BISACODYL 10 MG SUPP PR SCH ×2 (08:19→20:26)
[2016-06-28] MEDS: GEMFIBROZIL 600 MG TAB PO SCH (08:19)
[2016-06-28] MEDS: AMITRIPTYLINE 50 MG TAB PO SCH ×2 (08:19→20:39)
[2016-06-28] MEDS: KCL 20MEQ in NS 1000ML 1,000 ML IV SCH ×3 (08:19→20:39)
[2016-06-28] MEDS: CEFDINIR 300 MG CAP (OMNICEF) PO SCH ×2 (08:19→20:39)
[2016-06-28] MEDS: SODIUM CHLORIDE 0.9% INJ 10 ML SYR IV SCH (08:20)
[2016-06-28] MEDS: HEPARIN SOD (PORCINE) 5000 UNITS/ML VIAL SC SCH ×2 (13:53→22:23)
[2016-06-28 14:00] VITALS: BP 124/66
--- NOTE | 2016-06-28 14:14 | REP ---
ULTRASOUND GUIDED PARASTOMAL SEROMA DRAIN: The procedure was performed under the direct supervision of Dr. Godoy. The parastomal seroma was localized using ultrasound guidance. The skin was prepped and draped in a sterile fashion. 1% Xylocaine was used as a local anesthetic. Using ultrasound guidance, an #8-Hungarian skater APDL catheter was inserted using trocar technique. 45 mL of low viscosity red-colored fluid was withdrawn and sent to the lab. The catheter was affixed to the skin and a sterile dressing was applied. The catheter was connected to a gravity drainage bag. The patient tolerated the procedure well and there were no immediate complications. Reviewed by REGLA Orozco 06/28/2016 04:45 PEdited and Signed by Skyler Godoy MD 06/28/2016 05:02 P
--- NOTE | 2016-06-28 17:54 | IPN ---
DATE: 06/27/2016 Patient continues to have only a minimal amount of ostomy output. She still has been afebrile. She has had her nasogastric (NG) tube clamped intermittently without increasing pain or discomfort. Her gastric drainage has been 300 mL yesterday, still has some greenish bilious stuff coming out. Her urine output seems good at this point. She still complains of pain and discomfort and is still distended. On her physical exam, abdomen is mildly distended throughout, which is her typical presentation and there is some minimal fluid in the ostomy appliance. There is some fullness around the ostomy itself. IMPRESSION/PLAN: Patient has an ileus/small bowel obstruction. It has always been hard to tell with her whether she has a true small bowel obstruction or if it is a functional small bowel obstruction secondary to her medications, multiple operations causing a dysfunctional portion of her bowel. In any case, at this point she is not tolerating a diet, has an NG tube in place, and I think this is her appropriate step for right now. We will keep her intravenous (IV) fluids going for right now. We will see how she does over the next 24 hours and determine from there where to go with this. If she is still not opening up by tomorrow, will see about draining the fluid that is seen in the parastomal area. This may be contributing to her decreased output, although it seems less likely given that she had such good ostomy function in the perioperative time and I would feel that most likely, the swelling, edema of the ostomy would have occurred within the first 24-48 hours instead of a few weeks out.
[2016-06-28 20:50] VITALS: BP 130/81
[2016-06-29] MEDS: HYDROmorphone HCL 1 MG/ML SYRINGE (J1170) IV PRN ×8 (01:25→23:14)
[2016-06-29] MEDS: ONDANSETRON 4MG/2ML VIAL (J2405) IV PRN ×6 (02:44→23:32)
[2016-06-29] MEDS: metroNIDAZOLE 500 MG in APPROPRIATE DILUENT 1 EA IV SCH ×3 (04:30→20:00)
[2016-06-29] MEDS: KCL 20MEQ in NS 1000ML 1,000 ML IV SCH ×4 (04:30→20:00)
[2016-06-29] MEDS: HEPARIN SOD (PORCINE) 5000 UNITS/ML VIAL SC SCH ×3 (05:02→21:56)
[2016-06-29 05:14] LABS: MEAN CORPUSCULAR HEMOGLOBIN 30.5 pg (27.0-33.0); MEAN CORPUSCULAR HGB CONC 31.9 g/dl (32.0-36.5); MEAN CORPUSCULAR VOLUME 95.8 fl (80.0-96.0); RED CELL DISTRIBUTION WIDTH 13.7 % (11.5-14.5)
[2016-06-29 05:25] VITALS: BP 133/71
[2016-06-29 05:46] LABS: ALBUMIN 2.7 GM/DL (3.2-5.2); ALBUMIN/GLOBULIN RATIO 0.73 (1.00-1.93); ALKALINE PHOSPHATASE 78 U/L (45-117); ALT/SGPT 31 U/L (12-78); ANION GAP 15 MEQ/L (8-16); AST/SGOT 17 U/L (15-37); BILIRUBIN,TOTAL 0.2 MG/DL (0.2-1.0); BLOOD UREA NITROGEN 4 MG/DL (7-18); CALCIUM LEVEL 8.9 MG/DL (8.5-10.1); CARBON DIOXIDE LEVEL 18 MEQ/L (21-32); CHLORIDE LEVEL 110 MEQ/L (98-107); CREATININE FOR GFR 0.35 MG/DL (0.55-1.02); GLOMERULAR FILTRATION RATE > 60.0 (>51); GLUCOSE, FASTING 87 MG/DL (70-105); MAGNESIUM LEVEL 1.5 MG/DL (1.8-2.4); POTASSIUM SERUM 4.2 MEQ/L (3.5-5.1); SODIUM LEVEL 143 MEQ/L (136-145); TOTAL PROTEIN 6.4 GM/DL (6.4-8.2)
[2016-06-29] MEDS: HumaLOG INSULIN (NovoLOG) PER UNIT SC SCH ×4 (05:58→17:16)
[2016-06-29] MEDS: SYMBICORT 160/4.5MCG INHALER 6GM INH SCH ×2 (07:48→20:17)
[2016-06-29] MEDS: SENOKOT S TAB PO SCH ×2 (08:51→20:00)
[2016-06-29] MEDS: CEFDINIR 300 MG CAP (OMNICEF) PO SCH ×2 (08:51→20:00)
[2016-06-29] MEDS: BISACODYL 10 MG SUPP PR SCH ×2 (08:51→20:01)
[2016-06-29] MEDS: MOM 30ML SUSPENSION UDC PO SCH (08:51)
[2016-06-29] MEDS: GEMFIBROZIL 600 MG TAB PO SCH (08:51)
[2016-06-29] MEDS: predniSONE 20 MG TAB PO SCH (08:51)
[2016-06-29] MEDS: AZELASTINE 137MCG NASAL SPY 30 ML (ASTELIN) SCH ×2 (08:51→20:01)
[2016-06-29] MEDS: PANTOPRAZOLE 40MG INJ (PROTONIX) (C9113) IV SCH (08:51)
[2016-06-29] MEDS: AMITRIPTYLINE 50 MG TAB PO SCH ×2 (08:51→20:00)
[2016-06-29] MEDS: SODIUM CHLORIDE 0.9% INJ 10 ML SYR IV SCH (08:52)
[2016-06-29 14:00] VITALS: BP 124/68
--- NOTE | 2016-06-29 17:15 | IPN ---
DATE: 06/28/2016 The patient continues still not to have any significant output of her ostomy although there is some liquid stool in the ostomy itself. I did take a Elizalde catheter and passed it into her ostomy and I was able to pass this in to about 15 cm. There is no evidence of blockage and no evidence of obstruction in this area and overall she still seems about as distended as she was yesterday. She is not complaining of any severe crampy abdominal pain and she states that her abdominal distension is somewhat better than it was when she originally came in. On her physical exam, her abdomen is softly distended, mildly tender although still has the fullness and it is relatively tight around the ostomy itself and I do wonder if there is some component of the postoperative seroma / hematoma around the ostomy that might be contributing to the decreased fluid output. Thus will have her undergo an ultrasound guided drainage of this and see how she does. If it does not significantly drain over the next couple days, I would recommend that we get rid of the catheter to avoid any possible infectious complications that could occur with a drainage catheter in this place. Otherwise will see how she does over the next 24 hours. If no significant improvement then she may need to be started on some total parenteral nutrition (TPN). Otherwise we may be able to clamp her tube and if she tolerates clamping her tube, may progress her diet, discontinue her nasogastric (NG) tube, progress her to a clear liquid diet in the morning.
[2016-06-29 20:00] VITALS: BP 123/70
[2016-06-29] MEDS ORDERED: LACTULOSE 20 GM/30 ML SYRUP UD NG ONE (20:45)
[2016-06-29] MEDS ORDERED: MIRALAX *UNIT DOSE* 17GM PACKET NG ONE (20:45)
[2016-06-29] MEDS: MAG SULF 1GM/100ML (MAG RUN) 1 GM in APPROPRIATE DILUENT 1 EA IV SCH (21:56)
[2016-06-30] VITALS: BP 122/67
[2016-06-30] MEDS: MAG SULF 1GM/100ML (MAG RUN) 1 GM in APPROPRIATE DILUENT 1 EA IV SCH ×2 (00:11→05:22)
[2016-06-30] MEDS: HumaLOG INSULIN (NovoLOG) PER UNIT SC SCH ×4 (00:11→17:14)
[2016-06-30] MEDS: HYDROmorphone HCL 1 MG/ML SYRINGE (J1170) IV PRN ×7 (02:53→21:24)
[2016-06-30] MEDS: KCL 20MEQ in NS 1000ML 1,000 ML IV SCH ×3 (03:20→17:14)
[2016-06-30] MEDS: ONDANSETRON 4MG/2ML VIAL (J2405) IV PRN ×6 (04:04→23:50)
[2016-06-30] MEDS: metroNIDAZOLE 500 MG in APPROPRIATE DILUENT 1 EA IV SCH ×3 (04:04→19:51)
[2016-06-30] MEDS: HEPARIN SOD (PORCINE) 5000 UNITS/ML VIAL SC SCH ×3 (05:22→21:24)
[2016-06-30 05:58] VITALS: BP 118/68
[2016-06-30] MEDS: SYMBICORT 160/4.5MCG INHALER 6GM INH SCH ×2 (08:00→19:40)
[2016-06-30] MEDS: MOM 30ML SUSPENSION UDC PO SCH (08:19)
[2016-06-30] MEDS: predniSONE 20 MG TAB PO SCH (08:20)
[2016-06-30] MEDS: AZELASTINE 137MCG NASAL SPY 30 ML (ASTELIN) SCH ×2 (08:20→21:24)
[2016-06-30] MEDS: SENOKOT S TAB PO SCH ×2 (08:20→21:23)
[2016-06-30] MEDS: GEMFIBROZIL 600 MG TAB PO SCH (08:20)
[2016-06-30] MEDS: PANTOPRAZOLE 40MG INJ (PROTONIX) (C9113) IV SCH (08:20)
[2016-06-30] MEDS: CEFDINIR 300 MG CAP (OMNICEF) PO SCH ×2 (08:20→21:23)
[2016-06-30] MEDS: BISACODYL 10 MG SUPP PR SCH ×2 (08:21→21:00)
[2016-06-30] MEDS: AMITRIPTYLINE 50 MG TAB PO SCH ×2 (08:21→21:23)
[2016-06-30] MEDS: SODIUM CHLORIDE 0.9% INJ 10 ML SYR IV SCH (08:21)
[2016-06-30 14:00] VITALS: BP 135/82
[2016-06-30 22:00] VITALS: BP 128/68
[2016-07-01] MEDS: HYDROmorphone HCL 1 MG/ML SYRINGE (J1170) IV PRN ×8 (00:28→20:55)
[2016-07-01] MEDS: HumaLOG INSULIN (NovoLOG) PER UNIT SC SCH ×4 (00:28→17:43)
[2016-07-01] MEDS: ONDANSETRON 4MG/2ML VIAL (J2405) IV PRN ×5 (04:00→21:17)
[2016-07-01] MEDS: metroNIDAZOLE 500 MG in APPROPRIATE DILUENT 1 EA IV SCH ×3 (04:00→20:53)
[2016-07-01] MEDS: KCL 20MEQ in NS 1000ML 1,000 ML IV SCH (05:39)
[2016-07-01] MEDS: HEPARIN SOD (PORCINE) 5000 UNITS/ML VIAL SC SCH ×3 (05:39→21:17)
[2016-07-01 06:00] VITALS: BP 139/81
[2016-07-01 06:05] LABS: BASO % 0.2 % (0.0-1.0); EOS % 0.6 % (0.0-3.0); LARGE UNSTAINED CELL # 0.1 K/mm3 (0.0-0.4); LARGE UNSTAINED CELL % 1.5 % (0.0-4.0); LYMPH # 1.7 K/mm3 (1.5-4.5); LYMPH % 26.6 % (24.0-44.0); MEAN CORPUSCULAR HEMOGLOBIN 29.9 pg (27.0-33.0); MEAN CORPUSCULAR HGB CONC 31.8 g/dl (32.0-36.5); MEAN CORPUSCULAR VOLUME 94.1 fl (80.0-96.0); MONO # 0.4 K/mm3 (0.0-0.8); MONO % 6.7 % (0.0-5.0); NEUTROPHILS # 4.2 K/mm3 (1.8-7.7); NEUTROPHILS % 64.4 % (36.0-66.0); PLATELET COUNT, AUTOMATED 359 k/mm3 (150-450); RED CELL DISTRIBUTION WIDTH 14.1 % (11.5-14.5); WHITE BLOOD COUNT 6.5 K/mm3 (4.0-10.0)
[2016-07-01 06:16] LABS: ALBUMIN 2.9 GM/DL (3.2-5.2); ALBUMIN/GLOBULIN RATIO 0.78 (1.00-1.93); ALKALINE PHOSPHATASE 80 U/L (45-117); ALT/SGPT 26 U/L (12-78); ANION GAP 13 MEQ/L (8-16); AST/SGOT 16 U/L (15-37); BILIRUBIN,TOTAL 0.2 MG/DL (0.2-1.0); BLOOD UREA NITROGEN 4 MG/DL (7-18); CALCIUM LEVEL 9.2 MG/DL (8.5-10.1); CARBON DIOXIDE LEVEL 20 MEQ/L (21-32); CHLORIDE LEVEL 110 MEQ/L (98-107); CREATININE FOR GFR 0.38 MG/DL (0.55-1.02); GLOMERULAR FILTRATION RATE > 60.0 (>51); GLUCOSE, FASTING 109 MG/DL (70-105); POTASSIUM SERUM 3.9 MEQ/L (3.5-5.1); SODIUM LEVEL 143 MEQ/L (136-145); TOTAL PROTEIN 6.6 GM/DL (6.4-8.2)
[2016-07-01] MEDS: BISACODYL 10 MG SUPP PR SCH ×2 (09:00→20:54)
[2016-07-01] MEDS: MOM 30ML SUSPENSION UDC PO SCH (09:19)
[2016-07-01] MEDS: PANTOPRAZOLE 40MG INJ (PROTONIX) (C9113) IV SCH (09:19)
[2016-07-01] MEDS: predniSONE 20 MG TAB PO SCH (09:19)
[2016-07-01] MEDS: CEFDINIR 300 MG CAP (OMNICEF) PO SCH ×2 (09:19→20:54)
[2016-07-01] MEDS: GEMFIBROZIL 600 MG TAB PO SCH (09:19)
[2016-07-01] MEDS: SENOKOT S TAB PO SCH ×2 (09:19→20:54)
[2016-07-01] MEDS: AZELASTINE 137MCG NASAL SPY 30 ML (ASTELIN) SCH ×2 (09:20→20:54)
[2016-07-01] MEDS: SODIUM CHLORIDE 0.9% INJ 10 ML SYR IV SCH (09:20)
[2016-07-01] MEDS: AMITRIPTYLINE 50 MG TAB PO SCH ×2 (09:21→20:54)
[2016-07-01] MEDS: SYMBICORT 160/4.5MCG INHALER 6GM INH SCH ×2 (09:22→19:58)
[2016-07-01 14:00] VITALS: BP 126/65
[2016-07-01] MEDS ORDERED: AMINO AC/ELECTROLYTE/DEX/CALC 2,000 ML IV SCH (18:00)
[2016-07-01] MEDS ORDERED: FAT EMULSION IV 20% 500 ML IV SCH (18:00)
[2016-07-01 22:00] VITALS: BP 120/67
[2016-07-02] MEDS: HYDROmorphone HCL 1 MG/ML SYRINGE (J1170) IV PRN ×8 (00:18→23:26)
[2016-07-02] MEDS: HumaLOG INSULIN (NovoLOG) PER UNIT SC SCH ×4 (00:33→17:35)
[2016-07-02] MEDS: ONDANSETRON 4MG/2ML VIAL (J2405) IV PRN ×6 (01:30→22:28)
[2016-07-02] MEDS: metroNIDAZOLE 500 MG in APPROPRIATE DILUENT 1 EA IV SCH ×3 (03:26→20:21)
[2016-07-02 06:00] VITALS: BP 113/70
[2016-07-02] MEDS: SYMBICORT 160/4.5MCG INHALER 6GM INH SCH ×2 (08:53→20:18)
[2016-07-02 09:13] LABS: MEAN CORPUSCULAR HEMOGLOBIN 29.9 pg (27.0-33.0); MEAN CORPUSCULAR HGB CONC 31.9 g/dl (32.0-36.5); MEAN CORPUSCULAR VOLUME 93.8 fl (80.0-96.0); RED CELL DISTRIBUTION WIDTH 14.1 % (11.5-14.5); WHITE BLOOD COUNT 6.5 K/mm3 (4.0-10.0)
[2016-07-02 09:31] LABS: ANION GAP 9 MEQ/L (8-16); BLOOD UREA NITROGEN 9 MG/DL (7-18); CALCIUM LEVEL 10.1 MG/DL (8.5-10.1); CARBON DIOXIDE LEVEL 26 MEQ/L (21-32); CHLORIDE LEVEL 102 MEQ/L (98-107); CREATININE FOR GFR 0.68 MG/DL (0.55-1.02); GLUCOSE, FASTING 331 MG/DL (70-105); POTASSIUM SERUM 3.6 MEQ/L (3.5-5.1); SODIUM LEVEL 137 MEQ/L (136-145)
[2016-07-02 09:38] LABS: GLOMERULAR FILTRATION RATE > 60.0 (>51)
[2016-07-02] MEDS: SODIUM CHLORIDE 0.9% INJ 10 ML SYR IV SCH (10:20)
[2016-07-02] MEDS: PANTOPRAZOLE 40MG INJ (PROTONIX) (C9113) IV SCH (10:20)
[2016-07-02] MEDS: AZELASTINE 137MCG NASAL SPY 30 ML (ASTELIN) SCH ×2 (10:21→22:29)
[2016-07-02] MEDS: GEMFIBROZIL 600 MG TAB PO SCH (13:14)
[2016-07-02] MEDS: AMITRIPTYLINE 50 MG TAB PO SCH ×2 (13:14→20:22)
[2016-07-02] MEDS: CEFDINIR 300 MG CAP (OMNICEF) PO SCH ×2 (13:15→20:23)
[2016-07-02] MEDS: SENOKOT S TAB PO SCH ×2 (13:15→20:22)
[2016-07-02] MEDS: MOM 30ML SUSPENSION UDC PO SCH (13:19)
[2016-07-02] MEDS: predniSONE 20 MG TAB PO SCH (13:19)
[2016-07-02] MEDS: BISACODYL 10 MG SUPP PR SCH ×2 (13:20→21:00)
[2016-07-02 14:00] VITALS: BP 109/55
[2016-07-02] MEDS ORDERED: GLUCOSE 4 GM CHEW TABLET PO PRN (17:00)
[2016-07-02] MEDS ORDERED: DEXTROSE 50% 50 ML SYRINGE IV PRN (17:00)
[2016-07-02] MEDS ORDERED: GLUCAGON FOR INJ 1 MG VIAL (J1610) SC PRN (17:00)
--- NOTE | 2016-07-02 17:01 | REP ---
GASTROGRAFIN UPPER GI: The procedure was performed under the direct supervision of Dr. Camejo. The images were reviewed with Dr. Camejo. Converter Operator film demonstrates multiple surgical clips throughout the abdomen. The power pack for a dorsal column stimulator is located on the right abdomen. There is a drainage catheter overlying the left abdomen. There is a left abdominal stoma in place. A 50:50 solution of Gastrografin and water was administered in the right lateral recumbent position. The oral and pharyngeal stages of deglutition are unremarkable. Esophageal transport is prompt and efficient and there is no evidence of esophagitis, stricture, mucosal ring or hiatal hernia. Gastroesophageal reflux is not demonstrated on this examination. The stomach is grossly normal. The rugal folds are smooth and regular. There is no evidence of gastritis, neoplasm or ulcer disease. The duodenum is grossly normal. The mucosal folds are smooth and regular. There is no evidence of duodenitis, pancreatitis, peptic ulcer disease or neoplasm. The visualized portion of the proximal small bowel appears normal in course and caliber. The contrast was followed through the small bowel to the level of the ostomy. Small bowel transit time is approximately one hour. During fluoroscopy gentle palpation shows all loops are freely movable and pliable. There are no fixed or angulated loops. The small bowel mucosal pattern is normal in course and caliber. At the ostomy site, there is flow of contrast seen into the ostomy. There may be extrinsic compression on the terminal loop. There is no evidence of dilatation proximally. IMPRESSION: At the ostomy site there is flow of contrast seen into the ostomy. There may be some degree of extrinsic compression of the terminal loop. There is no evidence of dilatation proximally. 4 minutes and 42 seconds of fluoroscopy time was utilized for this procedure. Reviewed by REGLA Orozco 07/03/2016 04:15 PEdited and Signed by Geovanni Camejo MD 07/04/2016 12:25 P
[2016-07-02] MEDS: SODIUM CHLORIDE 0.9% INJ 10 ML SYR IV PRN (18:39)
[2016-07-02] MEDS ORDERED: HumaLOG INSULIN (NovoLOG) PER UNIT SC SCH (21:00)
[2016-07-02 22:00] VITALS: BP 113/64
[2016-07-03] MEDS: ONDANSETRON 4MG/2ML VIAL (J2405) IV PRN ×3 (02:35→11:02)
[2016-07-03] MEDS: HYDROmorphone HCL 1 MG/ML SYRINGE (J1170) IV PRN ×4 (02:35→12:03)
[2016-07-03] MEDS: metroNIDAZOLE 500 MG in APPROPRIATE DILUENT 1 EA IV SCH ×2 (04:04→12:03)
[2016-07-03 06:00] VITALS: BP 119/60
[2016-07-03] MEDS: SYMBICORT 160/4.5MCG INHALER 6GM INH SCH (08:13)
[2016-07-03] MEDS: HumaLOG INSULIN (NovoLOG) PER UNIT SC SCH ×2 (08:46→12:04)
[2016-07-03] MEDS: MOM 30ML SUSPENSION UDC PO SCH (08:46)
[2016-07-03] MEDS: CEFDINIR 300 MG CAP (OMNICEF) PO SCH (08:47)
[2016-07-03] MEDS: PANTOPRAZOLE 40MG INJ (PROTONIX) (C9113) IV SCH (08:47)
[2016-07-03] MEDS: SODIUM CHLORIDE 0.9% INJ 10 ML SYR IV SCH (08:47)
[2016-07-03] MEDS: GEMFIBROZIL 600 MG TAB PO SCH (08:47)
[2016-07-03] MEDS: SENOKOT S TAB PO SCH (08:47)
[2016-07-03] MEDS: AMITRIPTYLINE 50 MG TAB PO SCH (08:47)
[2016-07-03] MEDS: predniSONE 20 MG TAB PO SCH (08:47)
[2016-07-03] MEDS: AZELASTINE 137MCG NASAL SPY 30 ML (ASTELIN) SCH (08:48)
[2016-07-03] MEDS: BISACODYL 10 MG SUPP PR SCH (08:48)
[2016-07-03] MEDS: SODIUM CHLORIDE 0.9% INJ 10 ML SYR IV PRN (11:14)
--- NOTE | 2016-07-20 15:21 | DSES ---
DATE OF ADMISSION: 06/21/2016 DATE OF DISCHARGE: 07/03/2016 PRINCIPAL DIAGNOSIS: Postoperative ileus/small bowel obstruction. ASSOCIATED DIAGNOSES: 1. History of chronic pain. 2. History of colostomies. 3. History of bowel obstructions. 4. History of diabetes mellitus. 5. History of hypomagnesemia. 6. History of hypokalemia. 7. History of renal insufficiency. 8. History of multiple bowel resections, ventral hernia repairs, parastomal hernia repairs. HISTORY OF PRESENT ILLNESS: The patient is a 55-year-old female who underwent a parastomal hernia repair and was discharged four days prior. She was having some decreasing output after she was discharged and having crampy abdominal pain and was admitted to the emergency room with decreased ostomy output, increased abdominal discomfort. The CT was performed in the emergency room which revealed diffuse small bowel distension without definitive transition point. Her white count was normal, lactic acid was normal and she continued with her usual abdominal pain. It is hard to tell if this was more intense than typical baseline. HOSPITAL COURSE SUMMARY: The patient was admitted with the above diagnosis, had an nasogastric (NG) tube placed and this was kept in place for several days, and eventually her ostomy seemed to increase in amount. Once we felt that her ostomy was functioning adequately well, the NG tube was removed. She was started on a clear liquid diet and then advanced to a regular diet. She was discharged home on her usual medications which include amitriptyline, ammonium lactate, Astelin, Symbicort, ceftinir, ceterizine, Lopid, Glucerna, hydromorphone, insulin, lactulose, magnesium oxide, metoclopramide, multivitamins, Nasacort, Zofran, potassium, ranitidine, Robitussin, simethicone, Carafate, and tizanidine. She was instructed to followup in my office in 2-3 weeks and to follow up with her primary care physicians in one week.
== END 2016-07-03 14:38 | disposition home or self-care (01) | DRG 252 ==
LOC: EDBD 17:40 → M ED 18:02 → M ED INP 23:55 → M MS5PR 06-22 01:13 → M MSPAV 06-25 10:45
PROVIDERS: ADMIT Surgery; ATTEND Surgery
PROC: 0W9G30Z Drainage of Peritoneal Cavity with Drainage Device, Percutaneous Approach (ICD-10-PCS; principal; 2016-06-28)
DX: K91.3 Postprocedural intestinal obstruction (principal); E11.9 Type 2 diabetes mellitus without complications; E78.5 Hyperlipidemia, unspecified; K21.9 Gastro-esophageal reflux disease without esophagitis; Z93.3 Colostomy status

== ENCOUNTER → 2016-06-26 | Outpatient (CLI) | payer OTHER ==
[~2016-06-26] MED LIST changes: +COLA100C PO; -COLA100C3 PO; +E-Z PAQUE 60% w/v SUSP 355ML BOTTLE As Ordered ONE; +E-Z-GAS II EFFERVESCENT PACKET (SODIUM BICARB./CITRIC ACID/SIMETHICONE) As Ordered ONE; +E-Z-HD 98% w/w 340GM SUSP BTL As Ordered ONE; +GASTROGRAFIN SOLUTION 30ML (Q9963) As Ordered ONE; +HEPA1INJ IV; -HEPA1INJ4 IV; +LIDOCAINE 1% MDV 20ML VIAL As Ordered ONE; +PRED20TA PO; +ROBI30SU PO
== END ==
LOC: M INFU 07:00
PROVIDERS: ATTEND Family Medicine
DX: E83.42 Hypomagnesemia (principal)

== ENCOUNTER 2016-07-10 06:51 | Outpatient (CLI) | payer OTHER ==
[~2016-07-10 06:51] MED LIST changes: -E-Z PAQUE 60% w/v SUSP 355ML BOTTLE As Ordered ONE; -E-Z-GAS II EFFERVESCENT PACKET (SODIUM BICARB./CITRIC ACID/SIMETHICONE) As Ordered ONE; -E-Z-HD 98% w/w 340GM SUSP BTL As Ordered ONE; -GASTROGRAFIN SOLUTION 30ML (Q9963) As Ordered ONE; -LIDOCAINE 1% MDV 20ML VIAL As Ordered ONE
[2016-07-10] MEDS ORDERED: SODIUM CHLORIDE 0.9% INJ 10 ML SYR IV SCH (09:00)
== END 2016-07-10 07:10 | disposition home or self-care (01) ==
LOC: M INFU 06:51
PROVIDERS: ATTEND Family Medicine
DX: E83.42 Hypomagnesemia (principal); Z79.899 Other long term (current) drug therapy; Z79.4 Long term (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; Z88.1 Allergy status to other antibiotic agents; Z88.5 Allergy status to narcotic agent; Z91.02 Food additives allergy status; Z91.018 Allergy to other foods; Z91.048 Other nonmedicinal substance allergy status; Z88.0 Allergy status to penicillin

== ENCOUNTER 2016-07-12 06:43 | Outpatient (CLI) | payer OTHER ==
[~2016-07-12 06:43] MED LIST changes: -COLA100C PO; +COLA100C3 PO; -HEPA1INJ IV; +HEPA1INJ4 IV
[2016-07-12] MEDS ORDERED: ONDANSETRON 4MG/2ML VIAL (J2405) IV ONE (06:45)
[2016-07-12] MEDS ORDERED: MAGNESIUM SULFATE 1 GM/100 ML D5W BAG (10MG/ML) (J3475) IV SCH (07:00)
[2016-07-12] MEDS ORDERED: SODIUM CHLORIDE 0.9% INJ 10 ML SYR IV SCH (09:00)
== END 2016-07-12 11:35 | disposition home or self-care (01) ==
LOC: M INFU 06:43
PROVIDERS: ATTEND Family Medicine
DX: E83.42 Hypomagnesemia (principal)
CPT/HCPCS: 96365; 96366; 96367; J2405; J3475

== ENCOUNTER 2016-07-16 18:57 | Emergency (ER) | payer OTHER ==
[~2016-07-16] VITALS: Ht 170.2 cm; Wt 69.9 kg
[2016-07-16] MEDS ORDERED: IBUPROFEN 600 MG TAB PO ONE (19:30)
[2016-07-16 19:36] VITALS: BP 119/77
--- NOTE | 2016-07-16 21:10 | REP ---
Left foot series: Four views. History: Trauma. Findings: Four views of the left foot demonstrate overall normal mineralization. No fracture or subluxation is evident. Impression: No fracture seen. Signed by Skyler Godoy MD 07/17/2016 08:56 A
--- NOTE | 2016-07-16 21:11 | REP ---
Left ankle series: Four views. History: Trauma. Findings: Four views of the left ankle show an intact ankle mortise. No fracture or subluxation is seen. Impression: No fracture noted. Signed by Skyler Godoy MD 07/17/2016 08:56 A
== END 2016-07-16 20:15 | disposition home or self-care (01) ==
LOC: EDUNIT# 18:57 → EDBD 18:57 → M ED 19:09
DX: S73.102A Unspecified sprain of left hip, initial encounter (principal); S93.402A Sprain of unspecified ligament of left ankle, initial encounter; S93.602A Unspecified sprain of left foot, initial encounter; X50.1XXA Overexertion from prolonged static or awkward postures, initial encounter; Y92.099 Unspecified place in other non-institutional residence as the place of occurrence of the external cause; Y93.01 Activity, walking, marching and hiking; Y99.9 Unspecified external cause status

== ENCOUNTER 2016-07-18 06:49 | Outpatient (CLI) | payer OTHER ==
[~2016-07-18] VITALS: Ht 170.2 cm; Wt 77.1 kg
[2016-07-18] MEDS ORDERED: SODIUM CHLORIDE 0.9% INJ 10 ML SYR IV SCH (07:00)
[2016-07-18] MEDS ORDERED: ONDANSETRON 4MG/2ML VIAL (J2405) IV ONE (07:00)
== END 2016-07-18 07:30 | disposition home or self-care (01) ==
LOC: M INFU 06:49
PROVIDERS: ATTEND Family Medicine
DX: E83.42 Hypomagnesemia (principal); Z79.899 Other long term (current) drug therapy; Z79.4 Long term (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; Z88.1 Allergy status to other antibiotic agents; Z88.5 Allergy status to narcotic agent; Z91.02 Food additives allergy status; Z91.018 Allergy to other foods; Z91.048 Other nonmedicinal substance allergy status; Z88.0 Allergy status to penicillin
CPT/HCPCS: 36415; 36591; 83036; 83735; J2405

== ENCOUNTER 2016-07-19 06:41 | Outpatient (CLI) | payer OTHER ==
[~2016-07-19] VITALS: Ht 170.2 cm; Wt 77.1 kg
[2016-07-19] MEDS ORDERED: SODIUM CHLORIDE 0.9% INJ 10 ML SYR IV SCH (07:00)
[2016-07-19] MEDS ORDERED: ONDANSETRON 4MG/2ML VIAL (J2405) IV ONE (07:00)
[2016-07-19] MEDS ORDERED: MAGNESIUM SULFATE 1 GM/100 ML D5W BAG (10MG/ML) (J3475) IV SCH (07:00)
== END 2016-07-19 11:40 | disposition home or self-care (01) ==
LOC: M INFU 06:41
PROVIDERS: ATTEND Family Medicine
DX: E83.42 Hypomagnesemia (principal); Z79.899 Other long term (current) drug therapy; Z79.4 Long term (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; Z88.1 Allergy status to other antibiotic agents; Z88.5 Allergy status to narcotic agent; Z91.02 Food additives allergy status; Z91.018 Allergy to other foods; Z91.048 Other nonmedicinal substance allergy status; Z88.0 Allergy status to penicillin
CPT/HCPCS: 96365; 96366; 96367; J2405; J3475

== ENCOUNTER → 2016-07-23 | Outpatient (REF) | payer OTHER | LOC: M SFHCPLAZ 11:15 | PROVIDERS: ATTEND Family Medicine | DX: R39.15 Urgency of urination (principal) ==

== ENCOUNTER 2016-07-24 06:50 | Outpatient (CLI) | payer OTHER ==
[~2016-07-24 06:50] MED LIST changes: +ONDANSETRON 4MG/2ML VIAL (J2405) IV ONE
[2016-07-24] MEDS ORDERED: SODIUM CHLORIDE 0.9% INJ 10 ML SYR IV SCH (09:00)
== END 2016-07-24 07:30 | disposition home or self-care (01) ==
LOC: M INFU 06:50
PROVIDERS: ATTEND Family Medicine
DX: E83.42 Hypomagnesemia (principal); Z79.899 Other long term (current) drug therapy; Z79.4 Long term (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; Z88.1 Allergy status to other antibiotic agents; Z88.5 Allergy status to narcotic agent; Z91.02 Food additives allergy status; Z91.018 Allergy to other foods; Z91.048 Other nonmedicinal substance allergy status; Z88.0 Allergy status to penicillin
CPT/HCPCS: 36415; 83735; 96365; J2405

== ENCOUNTER 2016-07-26 07:01 | Outpatient (CLI) | payer OTHER ==
[~2016-07-26] VITALS: Ht 170.2 cm; Wt 77.1 kg
[~2016-07-26 07:01] MED LIST changes: +MAGNESIUM SULFATE 1 GM/100 ML D5W BAG (10MG/ML) (J3475) IV SCH
[2016-07-26] MEDS ORDERED: SODIUM CHLORIDE 0.9% INJ 10 ML SYR IV SCH (09:00)
[2016-07-26] MEDS ORDERED: CEFD1CAP8 PO (13:26)
== END 2016-07-26 11:45 | disposition home or self-care (01) ==
LOC: M INFU 07:01
PROVIDERS: ATTEND Family Medicine
DX: E83.42 Hypomagnesemia (principal); Z79.899 Other long term (current) drug therapy; Z79.4 Long term (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; Z88.1 Allergy status to other antibiotic agents; Z88.5 Allergy status to narcotic agent; Z91.02 Food additives allergy status; Z91.018 Allergy to other foods; Z91.048 Other nonmedicinal substance allergy status; Z88.0 Allergy status to penicillin
CPT/HCPCS: 96365; 96366; 96367; J2405; J3475

== ENCOUNTER 2016-07-26 13:18 | Emergency (ER) | payer OTHER ==
[~2016-07-26] VITALS: Ht 170.2 cm; Wt 70.3 kg
[2016-07-26 13:18] VITALS: BP 129/77
[~2016-07-26 13:18] MED LIST changes: -MAGNESIUM SULFATE 1 GM/100 ML D5W BAG (10MG/ML) (J3475) IV SCH; -ONDANSETRON 4MG/2ML VIAL (J2405) IV ONE
[2016-07-26] MEDS ORDERED: CEFD1CAP8 PO (13:26)
== END 2016-07-26 14:33 | disposition home or self-care (01) ==
LOC: M ED 14:12
DX: R31.9 Hematuria, unspecified (principal); Z96.9 Presence of functional implant, unspecified; Z90.710 Acquired absence of both cervix and uterus; Z90.49 Acquired absence of other specified parts of digestive tract; Z93.2 Ileostomy status; H81.10 Benign paroxysmal vertigo, unspecified ear; R51 Headache; M79.2 Neuralgia and neuritis, unspecified; I51.7 Cardiomegaly; E78.00 Pure hypercholesterolemia, unspecified; I95.9 Hypotension, unspecified; Z86.718 Personal history of other venous thrombosis and embolism; J45.909 Unspecified asthma, uncomplicated; K31.84 Gastroparesis; E11.9 Type 2 diabetes mellitus without complications; M54.9 Dorsalgia, unspecified; M79.604 Pain in right leg; M79.605 Pain in left leg; M25.519 Pain in unspecified shoulder; E83.42 Hypomagnesemia; Z79.899 Other long term (current) drug therapy; Z79.4 Long term (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; Z91.040 Latex allergy status; Z88.5 Allergy status to narcotic agent; Z88.0 Allergy status to penicillin; Z91.018 Allergy to other foods; Z88.2 Allergy status to sulfonamides; Z91.89 Other specified personal risk factors, not elsewhere classified; Z88.1 Allergy status to other antibiotic agents; Z88.8 Allergy status to other drugs, medicaments and biological substances; Z91.02 Food additives allergy status; Z88.6 Allergy status to analgesic agent

== ENCOUNTER 2016-07-31 07:59 | Outpatient (CLI) | payer OTHER ==
[~2016-07-31] VITALS: Ht 170.2 cm; Wt 77.1 kg
[2016-07-31] MEDS ORDERED: ONDANSETRON 4MG/2ML VIAL (J2405) IV ONE (08:00)
[2016-07-31] MEDS ORDERED: MAGNESIUM SULFATE 1 GM/100 ML D5W BAG (10MG/ML) (J3475) IV SCH (08:00)
[2016-07-31] MEDS ORDERED: SODIUM CHLORIDE 0.9% INJ 10 ML SYR IV SCH (09:00)
== END 2016-07-31 08:45 | disposition home or self-care (01) ==
LOC: M INFU 07:59
PROVIDERS: ATTEND Family Medicine
DX: E83.42 Hypomagnesemia (principal); Z79.899 Other long term (current) drug therapy; Z79.4 Long term (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; Z88.1 Allergy status to other antibiotic agents; Z88.5 Allergy status to narcotic agent; Z91.02 Food additives allergy status; Z91.018 Allergy to other foods; Z91.048 Other nonmedicinal substance allergy status; Z88.0 Allergy status to penicillin
CPT/HCPCS: 36415; 83735; 96374; J2405

== ENCOUNTER 2016-08-02 07:52 | Outpatient (CLI) | payer OTHER ==
[~2016-08-02] VITALS: Ht 170.2 cm; Wt 77.1 kg
[2016-08-02] MEDS ORDERED: ONDANSETRON 4MG/2ML VIAL (J2405) IV ONE (08:00)
[2016-08-02] MEDS ORDERED: MAGNESIUM SULFATE 1 GM/100 ML D5W BAG (10MG/ML) (J3475) IV SCH (08:00)
[2016-08-02] MEDS ORDERED: SODIUM CHLORIDE 0.9% INJ 10 ML SYR IV SCH (09:00)
== END 2016-08-02 12:40 | disposition home or self-care (01) ==
LOC: M INFU 07:52
PROVIDERS: ATTEND Family Medicine
DX: E83.42 Hypomagnesemia (principal); Z79.899 Other long term (current) drug therapy; Z79.4 Long term (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; Z88.1 Allergy status to other antibiotic agents; Z88.5 Allergy status to narcotic agent; Z91.02 Food additives allergy status; Z91.018 Allergy to other foods; Z91.048 Other nonmedicinal substance allergy status; Z88.0 Allergy status to penicillin
CPT/HCPCS: 96365; 96366; 96367; J2405; J3475

== ENCOUNTER → 2016-08-05 | Outpatient (CLI) | payer OTHER ==
[2016-08-05 16:11] LABS: BASO % 0.7 % (0.0-1.0); EOS # 0.1 K/mm3 (0.0-0.50); LARGE UNSTAINED CELL # 0.1 K/mm3 (0.0-0.4); LARGE UNSTAINED CELL % 1.5 % (0.0-4.0); LYMPH # 2.1 K/mm3 (1.5-4.5); LYMPH % 25.6 % (24.0-44.0); MEAN CORPUSCULAR HEMOGLOBIN 30.2 pg (27.0-33.0); MEAN CORPUSCULAR HGB CONC 31.9 g/dl (32.0-36.5); MEAN CORPUSCULAR VOLUME 94.6 fl (80.0-96.0); MONO # 0.5 K/mm3 (0.0-0.8); MONO % 6.4 % (0.0-5.0); NEUTROPHILS % 64.8 % (36.0-66.0); PLATELET COUNT, AUTOMATED 293 k/mm3 (150-450); RED CELL DISTRIBUTION WIDTH 14.9 % (11.5-14.5); WHITE BLOOD COUNT 7.8 K/mm3 (4.0-10.0)
== END ==
LOC: M LAB 15:28
PROVIDERS: ATTEND Family Medicine
DX: K92.1 Melena (principal)

== ENCOUNTER → 2016-08-06 | Outpatient (CLI) | payer OTHER ==
--- NOTE | 2016-08-23 01:03 | ECWPNPC ---
PATIENT NAME: GLENN FELDER : 1960 GENDER: FEMALE VISIT DATE: 08/06/2016 DISCHARGE DATE: 08/06/16 1004 VISIT LOCKED DATE TIME: PHYSICIAN: JENNA FORDE PHYSICIAN PAGER NO: TEXT TO [phone] RESOURCE: JENNA FORDE REASON FOR APPOINTMENT 1. MEDS HISTORY OF PRESENT ILLNESS HISTORY OF PRESENT ILLNESS: PAIN THE PATIENT DESCRIBES THE PAIN... FALL RISK SCREENING: SCREENING :NO FALLS IN THE PAST YEAR TODAY'S VISIT: NOTES: RECENT ABD HERNIA REPAIR AND REVISION OF THE STOMA ON 06/11/16 WITH DISCHARGE 2 WEEKS AGO. WAS READMITTED WITH BOWEL BLOCKAGE AFTER 4 DAYS. HAS MARKED INCREASE IN NECK/SHOULDER AND HEADPAIN. IS CURRENTLY HAVING TROUBLE READING HER DCS REMOTE. REPORTS NECK AND UPPER SHOULDER AREA PAIN ARE 10/10 WITH PAIN RADIATING UP THE BACK OF THE HEAD. HAVING TROUBLE TURNING NECK. CURRENT MEDICATIONS TAKING MAY HAVE SAVAGE WAFERS NEW IMAGE SKIN BARRIERS FLATING FLANGES ICD: V55.3 ([id number] 2 1/2 CHANGE NEEDED (EDUARD), NOTES: CURRENTLY WEARING TAKING BABY WIPES 1 MISCELLANEOUS DIRECTED TOPICALLY PRN DX:569.62 TAKING ROGAINE EXTRA STRENGTH FOR MEN 5 % SOLUTION 1 DROP TO AFFECTED AREA EXTERNALLY TWICE A DAY, NOTES: 02/11/16 TAKING MAY SAVAGE BAGS CLEAR VELCRO CLOSER ([id number]) ICD:V55.3 CHANGE NEEDED (EDUARD) TAKING PAPER TAPE 1"X12YD 1 TAPE DIRECTED TOPICALLY DX: 078.10 QID PRN BANDAGE CHANGE TAKING GAUZE STRETCH BANDAGE 2X75 ROLL DIRECTED TOIPICALLY DX:078.10 QID PRN TAKING ADHESIVE TAPE 1 TAPE - TOPICALLY DAILY TAKING GAUZE BANDAGE 2" 1 EACH - TOPICALLY TO RIGHT FINGERS DAILY TAKING COMPRESSION STOCKINGS 20/30 STOCKINGS 724.4 THIGH HIGHS DAILY TAKING GLUCERNA 1.0 CARLOS/FIBER 1 CAN - ORALLY 5 TIMES A DAY TAKING ONETOUCH ULTRA II TEST STRIPS TEST STRIP ULTRA MINI STRIP 1 ASDIR FOUR TIMES DAILY/DX:250.02 TAKING MAGNESIUM _ _ INFUSION INFUSION ONCE WEEKLY, NOTES: 02/09/16 TAKING NORMAL SALINE FLUSH 0.9 % SOLUTION 1000CC INFUSED OVER 4 HOURS, WITH 1 GM MAGNESIUM SULFATE INTRAVENOUS DAILY TAKING ONE TOUCH ULTRA 2 LANCET 1 LANCET LANCET ICD:250.02 IDDM FOUR TIMES DAILY TAKING SYMBICORT 160-4.5 MCG/ACT AEROSOL 2 PUFFS INHALATION TWICE A DAY TAKING ZOCOR 20 20MG TABLET 1 TAB(S) ORAL AT BEDTIME TAKING NEEDLE (DISP) 30G X 1 MISCELLANEOUS 250.0 FOR LEVEMIR PEN VITRO DAILY TAKING HEPARIN SODIUM (PORCINE) 5000 UNIT/ML SOLUTION INJECTION ONCE DAILY ON WEDNESDAYS AND FRIDAYS TAKING SYRINGE/NEEDLE (DISP) 1CC DIABETIC 1 SQ FOUR TIMES DAILY/DX:E11.9 IDDM TAKING SYRINGE 25G X 1 MISCELLANEOUS DIRECTED INTRAMUSCULAR ONCE DAILY; ICD:R11.0 TAKING REGLAN 10 MG TABLET 1 TABLET 30 MINUTES BEFORE MEALS AND AT BEDTIME NEEDED ORALLY FOUR TIMES A DAY TAKING LAC-HYDRIN 12 % LOTION 1 APPLICATION TO AFFECTED AREA EXTERNALLY TWICE A DAY TAKING LOPID 600 MG TABLET 1 TABLET ORALLY DAILY TAKING RANITIDINE HCL 150 MG TABLET 1 TABLET ORALLY TWICE A DAY TAKING ONE TOUCH ULTRA SYSTEM KIT METER DIRECTED ONE TOUCH ULTRA MINI-METER ONLY DX: E11.9, E11.21, E11.22, E11.65 TAKING AMITRIPTYLINE HCL 50 MG TABLET DIRECTED ORALLY 1 TAB IN AM AND 3 TABS AT BEDTIME TAKING CARAFATE 1 GM TABLET 1 TABLET ON AN EMPTY STOMACH ORALLY FOUR TIMES DAILY TAKING PEDIALYTE BOTTLE SOLUTION 1 BOTTLE ORALLY DAILY TAKING ONETOUCH LANCETS DELICA LANCET 1 SC 4 TIMES A DAY/DX:E11.90 IDDM TAKING MAGNESIUM OXIDE 400 MG TABLET DIRECTED ORALLY TID TAKING SIMETHICONE 125 MG TABLET CHEWABLE 1 TABLET NEEDED ORALLY FOUR TIMES A DAY PRN ABDOMINAL DISTENTION OR PAIN TAKING MIRALAX 1 SUSPENSION 17 GRAMS ORALLY DAILY TAKING ALCOHOL PREPS _ WIPE DX: E11.9 TOPICAL 5 TIMES A DAY NEEDED FOR INJECTIONS TAKING LACTULOSE 20 GM/30ML SOLUTION 15 ML ORALLY THREE TIMES DAILY TAKING ONE TOUCH ULTRA 2 STRIPS 1 STRIPS 1 STRIP SUBCUTANEOUSLY FOUR TIMES DAILY/DX: E11.9 TAKING CETIRIZINE HCL 10 MG TABLET 1 TABLET NEEDED ORALLY ONCE A DAY TAKING NASACORT AQ 55 MCG/ACT AEROSOL SOLUTION 1 PUFF IN EACH NOSTRIL NASALLY ONCE A DAY TAKING ASTELIN 137 MCG/SPRAY SOLUTION 1 PUFF IN EACH NOSTRIL NASALLY TWICE A DAY TAKING NOVOLOG MIX 70/30 (70-30) 100 UNIT/ML SUSPENSION 25 UNITS SUBCUTANEOUS DAILY AT THE MIDDAY MEAL TAKING KLOR-CON M20 20 MEQ TABLET EXTENDED RELEASE 1 TABLET ORALLY ONCE A DAY TAKING TIZANIDINE HCL 2 MG TABLET 1/2 TABLET ORALLY TWICE A DAY TAKING TOUJEO SOLOSTAR PENS 450 U/1.5ML PREFILLED PENS 35 UNITS SQ QAM TAKING BD PEN NEEDLE ULTRAFINE 29G X 12.7MM MISCELLANEOUS DIRECTED TOPICALLY DAILY TAKING A & D ZINC OXIDE - CREAM APPLY TO PERINEAL AREA AFTER EACH BM EXTERNALLY DIRECTED TAKING CEFDINIR 300 MG CAPSULE 1 CAPSULE ORALLY EVERY 12 HRS, STOP DATE 08/08/2016 TAKING HYDROMORPHONE HCL 4 MG TABLET 1/2 -1 TABLET ORALLY EVERY 4 HRS PRN PAIN MDD=5 TAKING ZOFRAN 4 MG/2ML SOLUTION 2 OR 4 ML IM (MEDICALLY NECESSARY) ONCE A DAY NOT-TAKING CEFDINIR 300 MG CAPSULE 1 CAPSULE ORALLY EVERY 12 HRS NOT-TAKING BENZONATATE 200 MG CAPSULE 1 CAPSULE ORALLY THREE TIMES A DAY NEEDED FOR COUGH NOT-TAKING PREDNISONE 20 MG TABLET 2 TABS WITH FOOD ORALLY ONCE A DAY NOT-TAKING LIDOCAINE 5 % OINTMENT 1 APPLICATION TO AFFECTED AREA NEEDED EXTERNALLY THREE TIMES A DAY TO BACK OF HEAD/NECK PRN PAIN, NOTES: 02/11/16 NOT-TAKING PREDNISONE 20 MG TABLET 3 TABLET ORALLY ONCE A DAY FOR 5 DAYS NOT-TAKING DOXYCYCLINE HYCLATE 100 MG CAPSULE 1 CAPSULE ORALLY EVERY 12 HRS, NOTES: LAST DOSE 02/12/2016 NOT-TAKING DOXYCYCLINE MONOHYDRATE 100 MG TABLET 1 TABLET ORALLY EVERY 12 HRS NOT-TAKING MILK OF MAGNESIA 7.75 % SUSPENSION 5 ML NEEDED ORALLY TWICE DAILY, NOTES: 12-25-151999 NOT-TAKING NYSTATIN POWDER [id number] UNIT/GM POWDER DIRECTED EXTERNALLY TWICE A DAY TO SKIN SURROUNDING STOMA INTIL HEALED, NOTES: NONE NOT-TAKING BENADRYL ALLERGY 25 MG TABLET 1 TABLET NEEDED ORALLY EVERY 6 HRS NOT-TAKING KETOTIFEN FUMARATE 0.025 % SOLUTION 1 DROP INTO AFFECTED EYE OPHTHALMIC TWICE A DAY MEDICATION LIST REVIEWED AND RECONCILED WITH THE PATIENT PAST MEDICAL HISTORY DM II WITH NEUROPATHY ASTHMA HYPERLIPIDEMIA GERD NEPHROLITHIASIS ALLERGIC RHINITIS CHRONIC MAXILLARY SINUSITIS CHRONIC HEADACHES (PAIN MANAGEMENT) CHRONIC PAIN SYNDROME/RSD (PAIN MANAGEMENT) PERSONAL HISTORY OF VENOUS THROMBOSIS AND EMBOLISM (RESOLVED 12/19/2009) H/O MULTIPLE ABDOMINAL SURGERIES ALLERGIES IODINE: NERVES, TIGHT MUSCLES: SIDE EFFECTS GABAPENTIN: NERVOUS SYSTEM,SHAKEY: SIDE EFFECTS GABITRIL: NERVOUS: SIDE EFFECTS KETOROLAC TROMETHAMINE: VOMITING: SIDE EFFECTS MEPERIDINE HCL: OUT OF BODY EXPERIENCE: SIDE EFFECTS MORPHINE SULFATE: SEVERE H/A WITH BIG DOSE: SIDE EFFECTS PROMETHAZINE HCL: OUT OF BODY EXPERIENCE: SIDE EFFECTS TRAMADOL: SHAKES: SIDE EFFECTS OXYCODONE: VOMITING,HIVES: ALLERGY PENICILLIN (FOR ALLERGIES USE ONLY): HIVES: ALLERGY FENTANYL: NERVOUS: SIDE EFFECTS DROPERIDOL: OUT OF BODY: SIDE EFFECTS CODEINE SULFATE: OUT OF BODY EXPERIENCE: SIDE EFFECTS PHENOTHIAZINES: NERVOUS SYSTEM: SIDE EFFECTS QUINOLONES- CIPRO,TEQUIN: HIVES: ALLERGY RED FOOD DYE: RASH: ALLERGY LIDODERM (LICOCANINE): HEART RACES: SIDE EFFECTS SULFA: HIVES: ALLERGY ASPIRIN: HIVES: ALLERGY ATIVAN: HALLUCINATIONS: SIDE EFFECTS AZITHROMYCIN: HIVES: ALLERGY BACLOFEN: AFFECTED NERVOUS SYT: SIDE EFFECTS LYRICA: SHAKES, EVERYTHING IS BLACK: SIDE EFFECTS VICODIN: CONFUSION: SIDE EFFECTS MACROBID: HIVES, BLURRED VISION: ALLERGY READI-CAT: HIVES: ALLERGY ALBUTEROL SULFATE: COUGH: ALLERGY GASTROGRAFIN: ONLY 1 BOTTLE PER TEST DAY (CAN NOT TOLERATE ANY MORE THAN 1 BOTTLE): CONTRAINDICATION LATEX (FOR ALLERGY USE ONLY): DIFFICULTY : ALLERGY SOCIAL HISTORY GENERAL: PAIN CLINIC PFS, CLERGY, PUBLIC HEALTH REFERRALS CLERGY REFERRAL NEEDED?NO WAS THE PROVIDER NOTIFIED OF ANY PERTINENT INFO?NO PFS REFERRAL NEEDED?NO PUBLIC HEALTH REFERRAL NEEDED?NO PATIENT: ____. REVIEW OF SYSTEMS CONSTITUTIONAL: ANY CHANGE IN YOUR MEDICAL CONDITION? NO . CHILLS NO . FEVER NO . INFECTION: DO YOU HAVE NEW INFECTIONS? NO . DO YOU HAVE HISTORY OF MRSA? NO . MUSCULOSKELETAL: ANY NEW PATTERNS OF PAIN OR NUMBNESS? NO . GASTROENTEROLOGY: ANY NEW CHANGE IN BOWEL CONTROL? NO . GENITOURINARY: ANY NEW CHANGE IN BLADDER CONTROL? NO . IS THERE A CHANCE YOU COULD BE ? NO . HEMATOLOGY/LYMPH: DO YOU TAKE ANY BLOOD THINNERS? (FOR EXAMPLE- COUMADIN, PLAVIX, AGGRENOX, PLATEL, PRADAXA, OR XARELTO) NO . WHEN WAS YOUR LAST DOSE? DATE: TIME: . NEUROLOGY: HAVE YOU FALLEN IN THE PAST 6 MONTHS? YES . ANY NEW EXTREMITY NUMBNESS OR WEAKNESS? NO . CARDIOLOGY: DO YOU HAVE A PACEMAKER OR DEFIBRILLATOR? NO . RESPIRATORY: HAVE YOU BEEN SICK IN THE PAST WEEK? NO . FEVER NO . FLU LIKE SYMPTOMS? NO . COUGH NO . INTEGUMENTARY: DO YOU HAVE ANY RASHES OR OPEN SORES? NO . ALLERGIC/IMMUNO: ARE YOU ALLERGIC TO SHELLFISH OR IV DYE? YES . ANY NEW ALLERGIES? NO . PSYCHIATRIC: DO YOU HAVE THOUGHTS OF HURTING YOURSELF OR SOMEONE ELSE? NO . ARE YOU ABUSED, NEGLECTED, OR IN AN UNSAFE ENVIRONMENT? NO . ENDOCRINOLOGY: ARE YOU DIABETIC? YES RECENT INSULIN CHANGE AND BS IMPROVED. STILL RECEIVING MAGNESIUM INFUSIONS . OTHER: DO YOU NEED ANY PRESCRIPTIONS? NO . IF YES, PLEASE LIST: ____ . ANY NEW PROBLEMS WITH YOUR MEDICATIONS? NO . WHEN DID YOU LAST EAT? ____ . WHEN DID YOU LAST DRINK? ____ . WHAT DID YOU LAST DRINK? ____ . NAME OF PERSON DRIVING YOU HOME? ____ . DO YOU HAVE ANY OTHER QUESTIONS OR CONCERNS YES, GET MY PAIN DOWN . REVIEWED BY: PROVIDER: JENNA SANABRIA . VITAL SIGNS WT 155 LBS, HT 67 IN, BMI 24.27 INDEX, BP 110/68 MM HG, HR 93 /MIN, RR 18 /MIN, TEMP 97.6 F, OXYGEN SAT % 99%, REVIEWED BY: EVITA ( DONE AT 0923). EXAMINATION GENERAL EXAMINATION: HEENT:FACE FLUSHED. LUNGS:CLEAR TO AUSCULTATION BILATERALLY. NO WHEEZES. RALES OR RHONCHI. HEART:NORMAL S1S2, NO MURMURS, CLICK OR RUBS. 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 GAIT ANTALGIC. CANE USED FOR BALANCE. 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 CLINICAL NOTES: ISTOP REGISTRY REVIEWED AND DEMNOSTRATES COMPLLIANCE. BRINGS IN MEDICATIONS WHICH IS APPROPRIATE FOR WHAT WAS DISPENSED. RECENT URINE TOXICOLOGY REVIEWED. NO UNAUTHORIZED MEDICATIONS. NO ILLICIT SUBSTANCES AND PRESCRIBED MEDICATIONS WERE PRESENT. PROCEDURE CODES FA211 ESTABILISHED PATIENT [facility] CHARGE DISPOSITION & COMMUNICATION FOLLOW UP AFTERINJECTION ELECTRONICALLY SIGNED BY JONATAN LANGFORD ON 08/22/2016 AT 07:00 PM EDT DISCLAIMER : THIS IS A VISIT SUMMARY EXTRACTED FROM THE [employer]ICAL[employer] CHART. IT IS NOT A COPY OF THE [employer]KS PROGRESS NOTE. MARLYN
== END ==
LOC: M PAIN 09:40
PROVIDERS: ATTEND Nurse Practitioner Family
DX: G89.29 Other chronic pain (principal); M54.81 Occipital neuralgia; M79.1 Myalgia; E11.65 Type 2 diabetes mellitus with hyperglycemia; J45.909 Unspecified asthma, uncomplicated; E78.2 Mixed hyperlipidemia; K21.9 Gastro-esophageal reflux disease without esophagitis; Z88.8 Allergy status to other drugs, medicaments and biological substances; Z88.5 Allergy status to narcotic agent; Z88.0 Allergy status to penicillin; Z91.048 Other nonmedicinal substance allergy status; Z88.2 Allergy status to sulfonamides; Z88.6 Allergy status to analgesic agent; Z91.040 Latex allergy status; Z79.4 Long term (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; Z79.899 Other long term (current) drug therapy

== ENCOUNTER 2016-08-07 07:53 | Outpatient (CLI) | payer OTHER ==
[~2016-08-07] VITALS: Ht 170.2 cm; Wt 77.1 kg
[2016-08-07] MEDS ORDERED: MAGNESIUM SULFATE 1 GM/100 ML D5W BAG (10MG/ML) (J3475) IV SCH ×2 (08:00→10:00)
[2016-08-07] MEDS ORDERED: ONDANSETRON 4MG/2ML VIAL (J2405) IV ONE (08:15)
[2016-08-07] MEDS ORDERED: SODIUM CHLORIDE 0.9% INJ 10 ML SYR IV SCH (09:00)
== END 2016-08-07 08:50 | disposition home or self-care (01) ==
LOC: M INFU 07:53
PROVIDERS: ATTEND Family Medicine
DX: E83.42 Hypomagnesemia (principal); Z79.899 Other long term (current) drug therapy; Z79.4 Long term (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; Z88.1 Allergy status to other antibiotic agents; Z88.5 Allergy status to narcotic agent; Z91.02 Food additives allergy status; Z91.018 Allergy to other foods; Z91.048 Other nonmedicinal substance allergy status; Z88.0 Allergy status to penicillin
CPT/HCPCS: 36415; 83735; 96365; J2405

== ENCOUNTER 2016-08-09 07:46 | Outpatient (CLI) | payer OTHER ==
[~2016-08-09] VITALS: Ht 170.2 cm; Wt 77.1 kg
[2016-08-09] MEDS ORDERED: MAGNESIUM SULFATE 1 GM/100 ML D5W BAG (10MG/ML) (J3475) IV SCH (08:00)
[2016-08-09] MEDS ORDERED: ONDANSETRON 4MG/2ML VIAL (J2405) IV ONE (08:00)
[2016-08-09] MEDS ORDERED: SODIUM CHLORIDE 0.9% INJ 10 ML SYR IV SCH (09:00)
== END 2016-08-09 12:45 | disposition home or self-care (01) ==
LOC: M INFU 07:46
PROVIDERS: ATTEND Family Medicine
DX: E83.42 Hypomagnesemia (principal); Z79.899 Other long term (current) drug therapy; Z79.4 Long term (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; Z88.1 Allergy status to other antibiotic agents; Z88.5 Allergy status to narcotic agent; Z91.02 Food additives allergy status; Z91.018 Allergy to other foods; Z91.048 Other nonmedicinal substance allergy status; Z88.0 Allergy status to penicillin
CPT/HCPCS: 96365; 96366; 96367; J2405; J3475

== ENCOUNTER 2016-08-14 11:21 | Outpatient (CLI) | payer OTHER ==
[~2016-08-14] VITALS: Ht 170.2 cm; Wt 77.1 kg
[~2016-08-14 11:21] MED LIST changes: +ONDANSETRON 4MG/2ML VIAL (J2405) IV ONE; +SODIUM CHLORIDE 0.9% INJ 10 ML SYR IV SCH
== END 2016-08-14 12:00 | disposition home or self-care (01) ==
LOC: M INFU 11:21
PROVIDERS: ATTEND Family Medicine
DX: E83.42 Hypomagnesemia (principal); Z79.899 Other long term (current) drug therapy; Z79.4 Long term (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; Z88.1 Allergy status to other antibiotic agents; Z88.5 Allergy status to narcotic agent; Z91.02 Food additives allergy status; Z91.018 Allergy to other foods; Z91.048 Other nonmedicinal substance allergy status; Z88.0 Allergy status to penicillin

== ENCOUNTER 2016-08-16 07:44 | Outpatient (CLI) | payer OTHER ==
[~2016-08-16] VITALS: Ht 170.2 cm; Wt 77.1 kg
[~2016-08-16 07:44] MED LIST changes: -ONDANSETRON 4MG/2ML VIAL (J2405) IV ONE; -SODIUM CHLORIDE 0.9% INJ 10 ML SYR IV SCH
[2016-08-16] MEDS ORDERED: ONDANSETRON 4MG/2ML VIAL (J2405) IV ONE (07:45)
[2016-08-16] MEDS ORDERED: MAG SULF 1GM/100ML (MAG RUN) 1 GM in APPROPRIATE DILUENT 1 EA IV SCH (08:00)
[2016-08-16] MEDS ORDERED: SODIUM CHLORIDE 0.9% INJ 10 ML SYR IV SCH (09:00)
== END 2016-08-16 12:45 | disposition home or self-care (01) ==
LOC: M INFU 07:44
PROVIDERS: ATTEND Family Medicine
DX: E83.42 Hypomagnesemia (principal); Z88.5 Allergy status to narcotic agent; Z88.1 Allergy status to other antibiotic agents; Z88.0 Allergy status to penicillin; Z91.018 Allergy to other foods; Z91.048 Other nonmedicinal substance allergy status; Z91.02 Food additives allergy status; Z79.4 Long term (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; Z79.899 Other long term (current) drug therapy
CPT/HCPCS: 96365; 96366; 96374; J2405; J3475

== ENCOUNTER 2016-08-21 07:58 | Outpatient (CLI) | payer OTHER ==
[~2016-08-21 07:58] MED LIST changes: +ONDANSETRON 4MG/2ML VIAL (J2405) IV ONE
[2016-08-21] MEDS ORDERED: SODIUM CHLORIDE 0.9% INJ 10 ML SYR IV SCH (09:00)
== END 2016-08-21 08:30 | disposition home or self-care (01) ==
LOC: M INFU 07:58
PROVIDERS: ATTEND Family Medicine
DX: E83.42 Hypomagnesemia (principal); Z88.5 Allergy status to narcotic agent; Z88.1 Allergy status to other antibiotic agents; Z88.0 Allergy status to penicillin; Z91.018 Allergy to other foods; Z91.048 Other nonmedicinal substance allergy status; Z79.899 Other long term (current) drug therapy; Z79.4 Long term (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; Z91.02 Food additives allergy status
CPT/HCPCS: 36415; 36591; 83735; 96374; J2405

== ENCOUNTER → 2016-08-22 | Outpatient (CLI) | payer OTHER ==
[~2016-08-22] MED LIST changes: +BUPIVACAINE HCL 0.25% 10 ML VIAL As Ordered ONE; +BUPIVACAINE HCL 0.25% 30 ML VIAL As Ordered ONE; +HYDR4TAB; +NOVO70IN SC; -ONDANSETRON 4MG/2ML VIAL (J2405) IV ONE; +SYMBICORT; +TOUJ1.2I SC; +TRIAMCINOLONE ACETONIDE SUSP 40 MG/ML VIAL (J3301) As Ordered ONE
--- NOTE | 2016-09-04 02:24 | ECWPNPC ---
PATIENT NAME: GLENN FELDER : 1960 GENDER: FEMALE VISIT DATE: 08/22/2016 DISCHARGE DATE: 08/22/16843 VISIT LOCKED DATE TIME: PHYSICIAN: ELLIS HECTOR PHYSICIAN PAGER NO: TEXT TO [phone] RESOURCE: ELLIS HECTOR HISTORY OF PRESENT ILLNESS HISTORY OF PRESENT ILLNESS: PAIN THE PATIENT DESCRIBES THE PAIN... FALL RISK SCREENING: SCREENING :NO FALLS IN THE PAST YEAR CURRENT MEDICATIONS TAKING MAY HAVE SAVAGE WAFERS NEW IMAGE SKIN BARRIERS FLATING FLANGES ICD: V55.3 (70101 2 1/2 CHANGE NEEDED (EDUARD), NOTES: CURRENTLY WEARING TAKING BABY WIPES 1 MISCELLANEOUS DIRECTED TOPICALLY PRN DX:569.62 TAKING ROGAINE EXTRA STRENGTH FOR MEN 5 % SOLUTION 1 DROP TO AFFECTED AREA EXTERNALLY TWICE A DAY, NOTES: 02/11/16 TAKING MAY SAVAGE BAGS CLEAR VELCRO CLOSER ([id number]) ICD:V55.3 CHANGE NEEDED (EDUARD) TAKING PAPER TAPE 1"X12YD 1 TAPE DIRECTED TOPICALLY DX: 078.10 QID PRN BANDAGE CHANGE TAKING GAUZE STRETCH BANDAGE 2X75 ROLL DIRECTED TOIPICALLY DX:078.10 QID PRN TAKING ADHESIVE TAPE 1 TAPE - TOPICALLY DAILY TAKING GAUZE BANDAGE 2" 1 EACH - TOPICALLY TO RIGHT FINGERS DAILY TAKING COMPRESSION STOCKINGS 20/30 STOCKINGS 724.4 THIGH HIGHS DAILY TAKING GLUCERNA 1.0 CARLOS/FIBER 1 CAN - ORALLY 5 TIMES A DAY, NOTES: 08/21/161999 TAKING ONETOUCH ULTRA II TEST STRIPS TEST STRIP ULTRA MINI STRIP 1 ASDIR FOUR TIMES DAILY/DX:250.02 TAKING MAGNESIUM _ _ INFUSION INFUSION ONCE WEEKLY, NOTES: 08/22/16 06 TAKING NORMAL SALINE FLUSH 0.9 % SOLUTION 1000CC INFUSED OVER 4 HOURS, WITH 1 GM MAGNESIUM SULFATE INTRAVENOUS DAILY TAKING ONE TOUCH ULTRA 2 LANCET 1 LANCET LANCET ICD:250.02 IDDM FOUR TIMES DAILY TAKING SYMBICORT 160-4.5 MCG/ACT AEROSOL 2 PUFFS INHALATION TWICE A DAY, NOTES: 08/22/16 0600 TAKING ZOCOR 20 20MG TABLET 1 TAB(S) ORAL AT BEDTIME, NOTES: 08/21/161999 TAKING NEEDLE (DISP) 30G X 1 MISCELLANEOUS 250.0 FOR LEVEMIR PEN VITRO DAILY TAKING HEPARIN SODIUM (PORCINE) 5000 UNIT/ML SOLUTION INJECTION ONCE DAILY ON WEDNESDAYS AND FRIDAYS, NOTES: 08/21/16 TAKING SYRINGE/NEEDLE (DISP) 1CC DIABETIC 1 SQ FOUR TIMES DAILY/DX:E11.9 IDDM TAKING REGLAN 10 MG TABLET 1 TABLET 30 MINUTES BEFORE MEALS AND AT BEDTIME NEEDED ORALLY FOUR TIMES A DAY, NOTES: 08/22/16599 TAKING LAC-HYDRIN 12 % LOTION 1 APPLICATION TO AFFECTED AREA EXTERNALLY TWICE A DAY, NOTES: 08/21/16 1600 TAKING LOPID 600 MG TABLET 1 TABLET ORALLY DAILY, NOTES: 08/22/16599 TAKING ONE TOUCH ULTRA SYSTEM KIT METER DIRECTED ONE TOUCH ULTRA MINI-METER ONLY DX: E11.9, E11.21, E11.22, E11.65 TAKING AMITRIPTYLINE HCL 50 MG TABLET DIRECTED ORALLY 1 TAB IN AM AND 3 TABS AT BEDTIME, NOTES: 08/22/16599 TAKING CARAFATE 1 GM TABLET 1 TABLET ON AN EMPTY STOMACH ORALLY FOUR TIMES DAILY, NOTES: 08/22/16599 TAKING PEDIALYTE BOTTLE SOLUTION 1 BOTTLE ORALLY DAILY, NOTES: 08/21/16 1600 TAKING ONETOUCH LANCETS DELICA LANCET 1 SC 4 TIMES A DAY/DX:E11.90 IDDM TAKING MAGNESIUM OXIDE 400 MG TABLET DIRECTED ORALLY TID, NOTES: 08/22/16599 TAKING SIMETHICONE 125 MG TABLET CHEWABLE 1 TABLET NEEDED ORALLY FOUR TIMES A DAY PRN ABDOMINAL DISTENTION OR PAIN, NOTES: 08/22/16 06 TAKING ALCOHOL PREPS _ WIPE DX: E11.9 TOPICAL 5 TIMES A DAY NEEDED FOR INJECTIONS TAKING LACTULOSE 20 GM/30ML SOLUTION 15 ML ORALLY THREE TIMES DAILY, NOTES: 08/22/16 0400 TAKING ONE TOUCH ULTRA 2 STRIPS 1 STRIPS 1 STRIP SUBCUTANEOUSLY FOUR TIMES DAILY/DX: E11.9 TAKING CETIRIZINE HCL 10 MG TABLET 1 TABLET NEEDED ORALLY ONCE A DAY, NOTES: NONE RECENT TAKING NASACORT AQ 55 MCG/ACT AEROSOL SOLUTION 1 PUFF IN EACH NOSTRIL NASALLY ONCE A DAY, NOTES: 08/21/16 1800 TAKING ASTELIN 137 MCG/SPRAY SOLUTION 1 PUFF IN EACH NOSTRIL NASALLY TWICE A DAY, NOTES: 08/21/16 1800 TAKING NOVOLOG MIX 70/30 (70-30) 100 UNIT/ML SUSPENSION 25 UNITS SUBCUTANEOUS DAILY AT THE MIDDAY MEAL, NOTES: 08/21/1601/29/1200 TAKING KLOR-CON M20 20 MEQ TABLET EXTENDED RELEASE 1 TABLET ORALLY ONCE A DAY, NOTES: 08/22/16599 TAKING TIZANIDINE HCL 2 MG TABLET 1/2 TABLET ORALLY TWICE A DAY, NOTES: 08/21/161799 TAKING TOUJEO SOLOSTAR PENS 450 U/1.5ML PREFILLED PENS 35 UNITS SQ QAM, NOTES: 08/22/16599 TAKING BD PEN NEEDLE ULTRAFINE 29G X 12.7MM MISCELLANEOUS DIRECTED TOPICALLY DAILY TAKING A & D ZINC OXIDE - CREAM APPLY TO PERINEAL AREA AFTER EACH BM EXTERNALLY DIRECTED, NOTES: NONE RECENT TAKING HYDROMORPHONE HCL 4 MG TABLET 1/2 -1 TABLET ORALLY EVERY 4 HRS PRN PAIN MDD=5, NOTES: 08/21/161999 TAKING ZOFRAN 4 MG/2ML SOLUTION 2 OR 4 ML IM (MEDICALLY NECESSARY) ONCE A DAY, NOTES: 08/22/16599 TAKING MIRALAX 1 SUSPENSION 17 GRAMS ORALLY THREE TIMES DAILY, NOTES: 08/21/161599 TAKING RANITIDINE HCL 150 MG TABLET 1 TABLET ORALLY TWICE A DAY, NOTES: 08/22/16599 TAKING SYRINGE 25G X 1 MISCELLANEOUS DIRECTED INTRAMUSCULAR ONCE DAILY; ICD:R11.0 NOT-TAKING CEFDINIR 300 MG CAPSULE 1 CAPSULE ORALLY EVERY 12 HRS NOT-TAKING BENZONATATE 200 MG CAPSULE 1 CAPSULE ORALLY THREE TIMES A DAY NEEDED FOR COUGH NOT-TAKING PREDNISONE 20 MG TABLET 2 TABS WITH FOOD ORALLY ONCE A DAY NOT-TAKING LIDOCAINE 5 % OINTMENT 1 APPLICATION TO AFFECTED AREA NEEDED EXTERNALLY THREE TIMES A DAY TO BACK OF HEAD/NECK PRN PAIN, NOTES: 02/11/16 NOT-TAKING PREDNISONE 20 MG TABLET 3 TABLET ORALLY ONCE A DAY FOR 5 DAYS NOT-TAKING DOXYCYCLINE HYCLATE 100 MG CAPSULE 1 CAPSULE ORALLY EVERY 12 HRS, NOTES: LAST DOSE 02/12/2016 NOT-TAKING DOXYCYCLINE MONOHYDRATE 100 MG TABLET 1 TABLET ORALLY EVERY 12 HRS NOT-TAKING MILK OF MAGNESIA 7.75 % SUSPENSION 5 ML NEEDED ORALLY TWICE DAILY, NOTES: 12-25-151999 NOT-TAKING NYSTATIN POWDER 056330 UNIT/GM POWDER DIRECTED EXTERNALLY TWICE A DAY TO SKIN SURROUNDING STOMA INTIL HEALED, NOTES: NONE NOT-TAKING BENADRYL ALLERGY 25 MG TABLET 1 TABLET NEEDED ORALLY EVERY 6 HRS NOT-TAKING KETOTIFEN FUMARATE 0.025 % SOLUTION 1 DROP INTO AFFECTED EYE OPHTHALMIC TWICE A DAY MEDICATION LIST REVIEWED AND RECONCILED WITH THE PATIENT PAST MEDICAL HISTORY DM II WITH NEUROPATHY ASTHMA HYPERLIPIDEMIA GERD NEPHROLITHIASIS ALLERGIC RHINITIS CHRONIC MAXILLARY SINUSITIS CHRONIC HEADACHES (PAIN MANAGEMENT) CHRONIC PAIN SYNDROME/RSD (PAIN MANAGEMENT) PERSONAL HISTORY OF VENOUS THROMBOSIS AND EMBOLISM (RESOLVED 12/19/2009) H/O MULTIPLE ABDOMINAL SURGERIES ALLERGIES IODINE: NERVES, TIGHT MUSCLES: SIDE EFFECTS GABAPENTIN: NERVOUS SYSTEM,SHAKEY: SIDE EFFECTS GABITRIL: NERVOUS: SIDE EFFECTS KETOROLAC TROMETHAMINE: VOMITING: SIDE EFFECTS MEPERIDINE HCL: OUT OF BODY EXPERIENCE: SIDE EFFECTS MORPHINE SULFATE: SEVERE H/A WITH BIG DOSE: SIDE EFFECTS PROMETHAZINE HCL: OUT OF BODY EXPERIENCE: SIDE EFFECTS TRAMADOL: SHAKES: SIDE EFFECTS OXYCODONE: VOMITING,HIVES: ALLERGY PENICILLIN (FOR ALLERGIES USE ONLY): HIVES: ALLERGY FENTANYL: NERVOUS: SIDE EFFECTS DROPERIDOL: OUT OF BODY: SIDE EFFECTS CODEINE SULFATE: OUT OF BODY EXPERIENCE: SIDE EFFECTS PHENOTHIAZINES: NERVOUS SYSTEM: SIDE EFFECTS QUINOLONES- CIPRO,TEQUIN: HIVES: ALLERGY RED FOOD DYE: RASH: ALLERGY LIDODERM (LICOCANINE): HEART RACES: SIDE EFFECTS SULFA: HIVES: ALLERGY ASPIRIN: HIVES: ALLERGY ATIVAN: HALLUCINATIONS: SIDE EFFECTS AZITHROMYCIN: HIVES: ALLERGY BACLOFEN: AFFECTED NERVOUS SYT: SIDE EFFECTS LYRICA: SHAKES, EVERYTHING IS BLACK: SIDE EFFECTS VICODIN: CONFUSION: SIDE EFFECTS MACROBID: HIVES, BLURRED VISION: ALLERGY READI-CAT: HIVES: ALLERGY ALBUTEROL SULFATE: COUGH: ALLERGY GASTROGRAFIN: ONLY 1 BOTTLE PER TEST DAY (CAN NOT TOLERATE ANY MORE THAN 1 BOTTLE): CONTRAINDICATION LATEX (FOR ALLERGY USE ONLY): DIFFICULTY : ALLERGY SURGICAL HISTORY NO PERSONAL HX OF SEVERE REACTION TO ANESTHESIA, HER BROTHER HAS "HAD HIS THROAT CLOSE OFF TWO DIFFERENT TIMES" WITH GENERAL ANESTHESIA SCALP TUMOR 1984 LUMPECTOMIES - REPORTED BENIGN BILATERAL 16 AND 21 YO TOTAL HYSTERECTOMY-DUE TO OVARIAN CYSTS/MASS 21 YO BILAT SYMPATHECTOMY 1987 AV FISTULA REPAIR L LEG 1988 CHOLECYSTECTOMY LATE SBO 2002 ABDOMINAL HERNIA REPAIR 2004 VENTRAL HERNIA REPAIR 2009 DORSAL COLUMN STIMULATOR TAKEN OUT AND NEW ONE IMPLANTED 02/21 SMALL PORTION OF SMALL BOWEL RESECTED AND VENTRAL HERNIA REPAIRS (CINTHIA) 06/2010 ILEOSTOMY-EDUARD 07/28/12 CYST REMOVED RIGHT NOSTRIL- DR RAJPUT. 09/17/12 REPAIR TWO HERNIAS AND REPAIR OF STOMA 03/26 HERNIA REPAIR X2 08/31/13 PARASTOMAL HERNIA REPAIR- EDUARD 06/26 HERNIA AND STOMA REPAIR-EDUARD 06/11 HOSPITALIZATION/MAJOR DIAGNOSTIC PROCEDURE [facility], WAS IN HOSPITAL 11 DAYS 09/2015 [facility], WAS IN HOSPITAL IN 5 DAYS 03/2016 [facility] 04/12/16-04/17/16 [facility] 06/2016 REVIEW OF SYSTEMS CONSTITUTIONAL: ANY CHANGE IN YOUR MEDICAL CONDITION? NO . CHILLS NO . FEVER NO . INFECTION: DO YOU HAVE NEW INFECTIONS? NO . DO YOU HAVE HISTORY OF MRSA? NO . MUSCULOSKELETAL: ANY NEW PATTERNS OF PAIN OR NUMBNESS? NO . GASTROENTEROLOGY: ANY NEW CHANGE IN BOWEL CONTROL? NO . GENITOURINARY: ANY NEW CHANGE IN BLADDER CONTROL? NO . IS THERE A CHANCE YOU COULD BE ? NO . HEMATOLOGY/LYMPH: DO YOU TAKE ANY BLOOD THINNERS? (FOR EXAMPLE- COUMADIN, PLAVIX, AGGRENOX, PLATEL, PRADAXA, OR XARELTO) NO . WHEN WAS YOUR LAST DOSE? DATE: TIME: . NEUROLOGY: HAVE YOU FALLEN IN THE PAST 6 MONTHS? NO . ANY NEW EXTREMITY NUMBNESS OR WEAKNESS? NO . CARDIOLOGY: DO YOU HAVE A PACEMAKER OR DEFIBRILLATOR? NO . RESPIRATORY: HAVE YOU BEEN SICK IN THE PAST WEEK? NO . FEVER NO . FLU LIKE SYMPTOMS? NO . COUGH NO . INTEGUMENTARY: DO YOU HAVE ANY RASHES OR OPEN SORES? NO . ALLERGIC/IMMUNO: ARE YOU ALLERGIC TO SHELLFISH OR IV DYE? YES . ANY NEW ALLERGIES? NO . PSYCHIATRIC: DO YOU HAVE THOUGHTS OF HURTING YOURSELF OR SOMEONE ELSE? NO . ARE YOU ABUSED, NEGLECTED, OR IN AN UNSAFE ENVIRONMENT? NO . ENDOCRINOLOGY: ARE YOU DIABETIC? YES, FSBS 196 @ 1100 . OTHER: DO YOU NEED ANY PRESCRIPTIONS? NO . IF YES, PLEASE LIST: ____ . ANY NEW PROBLEMS WITH YOUR MEDICATIONS? NO . WHEN DID YOU LAST EAT? 08/22/16 0600 . WHEN DID YOU LAST DRINK? 08/22/16 0600 . WHAT DID YOU LAST DRINK? WATER . NAME OF PERSON DRIVING YOU HOME? MOM--FAWAD . DO YOU HAVE ANY OTHER QUESTIONS OR CONCERNS NO . REVIEWED BY: PROVIDER: . VITAL SIGNS WT 156 LBS, HT 67 IN, BMI 24.43 INDEX, BP 126/64 MM HG, HR 88 /MIN, RR 18 /MIN, TEMP 98.0 F, OXYGEN SAT % 96%, NA INITIALS AW 1304, REVIEWED BY: AD. ASSESSMENTS MYALGIA - M79.1 (PRIMARY) PROCEDURES PN TRIGGER POINT INJECTION WITH STEROIDS PRE PROCEDURE DIAGNOSIS 1. MYALGIA 2. PAIN AT BILATERAL NECK AREA AND BILATERAL SHOULDER AREA POST PROCEDURE DIAGNOSIS 1. MYALGIA 2. PAIN AT BILATERAL NECK AREA AND BILATERAL SHOULDER AREA PROCEDURE TRIGGER POINT INJECTION AT BILATERAL NECK AREA AND BILATERAL SHOULDER AREA SURGEON DR. ELLIS HECTOR RN TRANSPORT NONE ANESTHESIA LOCAL PRE PROCEDURE NOTE THE PATIENT HAS A HISTORY OF CHRONIC PAIN AT THE RIGHT AND LEFT NECK AREA AND RIGHT AND LEFT SHOULDER AREA. I EVALUATE THE PATIENT AND REVIEWED THE CHART. THERE IS EVIDENCE OF BANDS OF TISSUE WITH RESTRICTION OF MOVEMENT AND PRESENCE OF TRIGGER POINT AT THE AFFECTED AREA. I WENT OVER THE RISKS, ALTERNATIVES, AND BENEFITS ASSOCIATED WITH THIS PROCEDURE. THE PATIENT WOULD LIKE TO PROCEED AND GIVE CONSENT TO PERFORMED THE PROCEDURE. THE PATIENT DENIES UNEXPLAINABLE WEIGHT LOSS, FEVER, CHILLS, OR NEW CHANGES IN URINARY OR BOWEL CONTROL DESCRIPTION OF PROCEDURE THE PATIENT WAS BROUGHT TO THE PROCEDURE ROOM AND PLACED IN THE SITTING POSITION. THE AREA WAS CLEANED WITH ALCOHOL. THE PROCEDURE WAS DONE USING ASEPTIC STERILE TECHNIQUE. I CHECKED LATERALITY AND THE LEVEL WHERE THE PROCEDURE WAS GOING TO BE PERFORMED WITH THE PATIENT AND THE SUPPORTING STAFF AT THE MOMENT OF THE TIME OUT IN THE PROCEDURE ROOM. USING A 25-GAUGE NEEDLE, TRIGGER POINTS WERE INJECTED AT THE RIGHT AND LEFT NECK AREA AND RIGHT AND LEFT SHOULDER AREA WITH A TOTAL OF 40 ML OF BUPIVACAINE 0.25% AND KENALOG 40 MG. THERE WAS NO EVIDENCE OF BLOOD, PARESTHESIA OR CEREBROSPINAL FLUID DURING THE PROCEDURE. THE PATIENT WAS SENT TO THE RECOVERY ROOM. THE PATIENT WAS MOVING THE EXTREMITIES AND DOING WELL. THERE WAS NO COMPLICATION DURING THE PROCEDURE POST PROCEDURE NOTE THE PATIENT WILL BE SEEN IN A FOLLOW UP IN THE NEXT FEW WEEKS. INSTRUCTIONS WERE GIVEN, QUESTIONS WERE ANSWERED, AND THE PATIENT EXPRESSED UNDERSTANDING AND AGREES WITH THE PLAN. I, CURTIS WEST, DOCUMENTED THE ABOVE INFORMATION ACTING A SCRIBE FOR DR. HECTOR. I HAVE REVIEWED THE ABOVE DOCUMENT, WRITTEN BY CURTIS HIGBY SCRIBE AND I VERIFY THAT IT IS ACCURATE PROCEDURE CODES 97679 INJECT TRIGGER POINTS 3/> DISPOSITION & COMMUNICATION FOLLOW UP 3 WEEKS ELECTRONICALLY SIGNED BY ELLIS HECTOR MD ON 09/03/2016 AT 06:01 PM EDT DISCLAIMER : THIS IS A VISIT SUMMARY EXTRACTED FROM THE [employer] CHART. IT IS NOT A COPY OF THE [employer] PROGRESS NOTE. MARLYN
== END ==
LOC: M PAIN 13:20
PROVIDERS: ATTEND Anesthesiology
DX: G89.29 Other chronic pain (principal); M79.1 Myalgia; M54.2 Cervicalgia; M25.511 Pain in right shoulder; M25.512 Pain in left shoulder; K21.9 Gastro-esophageal reflux disease without esophagitis; E83.42 Hypomagnesemia; R11.0 Nausea; E11.65 Type 2 diabetes mellitus with hyperglycemia; N18.3 Chronic kidney disease, stage 3 (moderate); D50.9 Iron deficiency anemia, unspecified; G89.4 Chronic pain syndrome; J45.909 Unspecified asthma, uncomplicated; Z88.8 Allergy status to other drugs, medicaments and biological substances; Z88.5 Allergy status to narcotic agent; Z88.0 Allergy status to penicillin; Z91.018 Allergy to other foods; Z88.2 Allergy status to sulfonamides; Z88.6 Allergy status to analgesic agent; Z88.1 Allergy status to other antibiotic agents; Z91.040 Latex allergy status; Z79.4 Long term (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; Z79.891 Long term (current) use of opiate analgesic; Z79.899 Other long term (current) drug therapy
CPT/HCPCS: 20553; J3301

== ENCOUNTER 2016-08-23 07:34 | Outpatient (CLI) | payer OTHER ==
[~2016-08-23 07:34] MED LIST changes: -BUPIVACAINE HCL 0.25% 10 ML VIAL As Ordered ONE; -BUPIVACAINE HCL 0.25% 30 ML VIAL As Ordered ONE; -HYDR4TAB; +MAGNESIUM SULFATE 1 GM/100 ML D5W BAG (10MG/ML) (J3475) IV SCH; -NOVO70IN SC; +ONDANSETRON 4MG/2ML VIAL (J2405) IV ONE; -SYMBICORT; -TOUJ1.2I SC; -TRIAMCINOLONE ACETONIDE SUSP 40 MG/ML VIAL (J3301) As Ordered ONE
[2016-08-23] MEDS ORDERED: SODIUM CHLORIDE 0.9% INJ 10 ML SYR IV SCH (09:00)
== END 2016-08-23 12:30 | disposition home or self-care (01) ==
LOC: M INFU 07:34
PROVIDERS: ATTEND Family Medicine
DX: E83.42 Hypomagnesemia (principal); Z88.5 Allergy status to narcotic agent; Z88.1 Allergy status to other antibiotic agents; Z88.0 Allergy status to penicillin; Z91.018 Allergy to other foods; Z91.048 Other nonmedicinal substance allergy status; Z79.4 Long term (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; Z91.02 Food additives allergy status; Z79.899 Other long term (current) drug therapy
CPT/HCPCS: 96365; 96367; J2405; J3475

== ENCOUNTER 2016-08-28 07:55 | Outpatient (CLI) | payer OTHER ==
[~2016-08-28] VITALS: Ht 170.2 cm; Wt 77.7 kg
[~2016-08-28 07:55] MED LIST changes: -MAGNESIUM SULFATE 1 GM/100 ML D5W BAG (10MG/ML) (J3475) IV SCH
[2016-08-28] MEDS ORDERED: MAGNESIUM SULFATE 1 GM/100 ML D5W BAG (10MG/ML) (J3475) IV SCH (08:00)
[2016-08-28] MEDS ORDERED: SODIUM CHLORIDE 0.9% INJ 10 ML SYR IV SCH (09:00)
== END 2016-08-28 08:40 | disposition home or self-care (01) ==
LOC: M INFU 07:55
PROVIDERS: ATTEND Family Medicine
DX: E83.42 Hypomagnesemia (principal); Z88.5 Allergy status to narcotic agent; Z88.1 Allergy status to other antibiotic agents; Z88.0 Allergy status to penicillin; Z79.899 Other long term (current) drug therapy; Z91.018 Allergy to other foods; Z79.4 Long term (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; Z91.048 Other nonmedicinal substance allergy status; Z91.02 Food additives allergy status
CPT/HCPCS: 36415; 36591; 83735; 96365; J2405

== ENCOUNTER 2016-08-30 07:46 | Outpatient (CLI) | payer OTHER ==
[~2016-08-30] VITALS: Ht 170.2 cm; Wt 77.1 kg
[2016-08-30] MEDS ORDERED: MAG SULF 1GM/100ML (MAG RUN) 100 ML IV SCH (08:00)
[2016-08-30] MEDS ORDERED: SODIUM CHLORIDE 0.9% INJ 10 ML SYR IV SCH (09:00)
== END 2016-08-30 12:40 | disposition home or self-care (01) ==
LOC: M INFU 07:46
PROVIDERS: ATTEND Family Medicine
DX: E83.42 Hypomagnesemia (principal); Z88.5 Allergy status to narcotic agent; Z88.1 Allergy status to other antibiotic agents; Z88.0 Allergy status to penicillin; Z91.018 Allergy to other foods; Z91.02 Food additives allergy status; Z91.048 Other nonmedicinal substance allergy status; Z79.4 Long term (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; Z79.899 Other long term (current) drug therapy
CPT/HCPCS: 96365; 96366; J2405; J3475

== ENCOUNTER 2016-09-03 12:01 | Emergency (ER) | payer OTHER ==
[~2016-09-03 12:01] MED LIST changes: -ONDANSETRON 4MG/2ML VIAL (J2405) IV ONE
[2016-09-03] MEDS ORDERED: SUCR1TA PO (12:15)
[2016-09-03] MEDS ORDERED: NOVO70IN SC (12:15)
[2016-09-03] MEDS ORDERED: TOUJ1.2I SC (12:15)
[2016-09-03] MEDS ORDERED: NS 1,000 ML IV SCH (12:22)
[2016-09-03] MEDS ORDERED: HYDROmorphone HCL 1 MG/ML SYRINGE (J1170) IV ONE ×2 (12:30→14:15)
[2016-09-03] MEDS ORDERED: GASTROGRAFIN SOLUTION 30ML (Q9963) As Ordered ONE (12:43)
[2016-09-03] MEDS ORDERED: GASTROGRAFIN SOLUTION 30ML (Q9963) PO ONE ×2 (12:45→13:15)
[2016-09-03 12:52] LABS: BASO % 0.3 % (0.0-1.0); EOS # 0.2 K/mm3 (0.0-0.50); EOS % 2.1 % (0.0-3.0); LARGE UNSTAINED CELL # 0.1 K/mm3 (0.0-0.4); LARGE UNSTAINED CELL % 1.5 % (0.0-4.0); LYMPH # 1.5 K/mm3 (1.5-4.5); LYMPH % 19.2 % (24.0-44.0); MEAN CORPUSCULAR HEMOGLOBIN 32.5 pg (27.0-33.0); MEAN CORPUSCULAR HGB CONC 33.1 g/dl (32.0-36.5); MEAN CORPUSCULAR VOLUME 98.1 fl (80.0-96.0); MONO # 0.3 K/mm3 (0.0-0.8); MONO % 4.1 % (0.0-5.0); NEUTROPHILS # 5.7 K/mm3 (1.8-7.7); NEUTROPHILS % 72.7 % (36.0-66.0); PLATELET COUNT, AUTOMATED 301 k/mm3 (150-450); RED CELL DISTRIBUTION WIDTH 15.4 % (11.5-14.5); WHITE BLOOD COUNT 7.9 K/mm3 (4.0-10.0)
[2016-09-03 13:19] LABS: ALBUMIN 3.5 GM/DL (3.2-5.2); ALBUMIN/GLOBULIN RATIO 0.74 (1.00-1.93); ALKALINE PHOSPHATASE 129 U/L (45-117); ALT/SGPT 25 U/L (12-78); ANION GAP 6 MEQ/L (8-16); AST/SGOT 20 U/L (15-37); BILIRUBIN,DIRECT < 0.1 MG/DL (0.0-0.2); BILIRUBIN,TOTAL 0.3 MG/DL (0.2-1.0); BLOOD UREA NITROGEN 16 MG/DL (7-18); CALCIUM LEVEL 10.9 MG/DL (8.5-10.1); CARBON DIOXIDE LEVEL 27 MEQ/L (21-32); CHLORIDE LEVEL 103 MEQ/L (98-107); GLOMERULAR FILTRATION RATE > 60.0 (>51); GLUCOSE, FASTING 151 MG/DL (70-105); POTASSIUM SERUM 4.1 MEQ/L (3.5-5.1); SODIUM LEVEL 136 MEQ/L (136-145); TOTAL PROTEIN 8.2 GM/DL (6.4-8.2)
[2016-09-03] MEDS ORDERED: ONDANSETRON 4MG/2ML VIAL (J2405) IV ONE (13:30)
--- NOTE | 2016-09-03 14:36 | REP ---
Clinical: Acute right-sided abdominal pain with vomiting. Comparison: 06/21/2016. Findings: Lung bases demonstrate chronic interstitial changes. Visualized heart and pericardium grossly normal. Liver, spleen, pancreas, bilateral adrenal glands and kidneys are normal for noncontrast evaluation. The patient is status post cholecystectomy as well as presumed retroperitoneal node dissection and hysterectomy. The enteric system demonstrates postsurgical changes with evidence for total colectomy, normal appearing Maribell's pouch, and ileostomy via the left anterior abdominal wall. Tethering of small bowel loops to the anterior abdominal wall due to surgical adhesions is suggested without evidence for bowel obstruction or obvious acute inflammatory process. Pelvis demonstrates normal collapsed bladder. No ascites. No free air. No obvious adenopathy. Osseous structures are intact. An epidural stimulator identified within the spinal canal in the thoracic. Impression: Postsurgical changes as described above. No evidence for acute intra-abdominal or pelvic pathology. No ascites, no free air, no obvious adenopathy. Signed by Darius Roth MD 09/03/2016 02:27 P
[2016-09-03 15:23] VITALS: BP 108/71
[2016-09-04] MEDS ORDERED: SODIUM CHLORIDE 0.9% INJ 10 ML SYR IV SCH (09:00)
== END 2016-09-03 15:26 | disposition home or self-care (01) ==
LOC: EDBD 12:01 → M ED 13:10
DX: R10.9 Unspecified abdominal pain (principal); E11.9 Type 2 diabetes mellitus without complications; J45.909 Unspecified asthma, uncomplicated; E78.5 Hyperlipidemia, unspecified; K21.9 Gastro-esophageal reflux disease without esophagitis; G90.59 Complex regional pain syndrome I of other specified site; Z86.718 Personal history of other venous thrombosis and embolism; Z87.442 Personal history of urinary calculi; Z79.82 Long term (current) use of aspirin; Z88.8 Allergy status to other drugs, medicaments and biological substances; Z88.0 Allergy status to penicillin; Z88.1 Allergy status to other antibiotic agents; Z88.2 Allergy status to sulfonamides; Z91.018 Allergy to other foods; Z91.02 Food additives allergy status; Z79.899 Other long term (current) drug therapy; Z79.4 Long term (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; R51 Headache; I95.9 Hypotension, unspecified

== ENCOUNTER 2016-09-04 07:39 | Outpatient (CLI) | payer OTHER ==
[~2016-09-04 07:39] MED LIST changes: +NOVO70IN SC; +ONDANSETRON 4MG/2ML VIAL (J2405) IV ONE; +TOUJ1.2I SC
[2016-09-04] MEDS ORDERED: SODIUM CHLORIDE 0.9% INJ 10 ML SYR IV SCH (09:00)
== END 2016-09-04 08:30 | disposition home or self-care (01) ==
LOC: M INFU 07:39
PROVIDERS: ATTEND Family Medicine
DX: E83.42 Hypomagnesemia (principal); Z88.5 Allergy status to narcotic agent; Z88.0 Allergy status to penicillin; Z88.1 Allergy status to other antibiotic agents; Z79.899 Other long term (current) drug therapy; Z91.018 Allergy to other foods; Z79.4 Long term (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; Z91.048 Other nonmedicinal substance allergy status; Z91.02 Food additives allergy status
CPT/HCPCS: 36415; 36591; 83735; 96365; J2405

== ENCOUNTER 2016-09-06 07:56 | Outpatient (CLI) | payer OTHER ==
[~2016-09-06] VITALS: Ht 170.2 cm; Wt 77.1 kg
[2016-09-06] MEDS ORDERED: MAG SULF 1GM/100ML (MAG RUN) 1 GM in APPROPRIATE DILUENT 1 EA IV SCH (08:00)
[2016-09-06] MEDS ORDERED: SODIUM CHLORIDE 0.9% INJ 10 ML SYR IV SCH (09:00)
== END 2016-09-06 09:30 | disposition home or self-care (01) ==
LOC: M INFU 07:56
PROVIDERS: ATTEND Family Medicine
DX: E83.42 Hypomagnesemia (principal); Z88.0 Allergy status to penicillin; Z88.1 Allergy status to other antibiotic agents; Z88.5 Allergy status to narcotic agent; Z91.018 Allergy to other foods; Z79.4 Long term (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; Z91.048 Other nonmedicinal substance allergy status; Z91.02 Food additives allergy status; Z79.899 Other long term (current) drug therapy
CPT/HCPCS: 96365; 96366; J2405; J3475

== ENCOUNTER 2016-09-11 07:46 | Outpatient (CLI) | payer OTHER ==
[~2016-09-11] VITALS: Ht 170.2 cm; Wt 77.1 kg
[~2016-09-11 07:46] MED LIST changes: -HYDR4TAB; +ONDANSETRON 4MG/2ML VIAL (J2405) IV ONE; +SODIUM CHLORIDE 0.9% INJ 10 ML SYR IV SCH; -SYMBICORT
== END 2016-09-11 08:50 | disposition home or self-care (01) ==
LOC: M INFU 07:46
PROVIDERS: ATTEND Family Medicine
DX: E83.42 Hypomagnesemia (principal); Z88.5 Allergy status to narcotic agent; Z88.1 Allergy status to other antibiotic agents; Z88.0 Allergy status to penicillin; Z79.899 Other long term (current) drug therapy; Z91.018 Allergy to other foods; Z79.4 Long term (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; Z91.048 Other nonmedicinal substance allergy status; Z91.02 Food additives allergy status

== ENCOUNTER → 2016-09-11 | Outpatient (RCR) | payer OTHER ==
[~2016-09-11] MED LIST changes: +HYDR4TAB; -ONDANSETRON 4MG/2ML VIAL (J2405) IV ONE; +SYMBICORT
== END ==
LOC: M PT 08-21 08:46
PROVIDERS: ATTEND Podiatrist Foot & Ankle Surgery
DX: Z51.89 Encounter for other specified aftercare (principal); M72.2 Plantar fascial fibromatosis

== ENCOUNTER 2016-09-13 07:41 | Outpatient (CLI) | payer OTHER ==
[~2016-09-13] VITALS: Ht 170.2 cm; Wt 77.1 kg
[~2016-09-13 07:41] MED LIST changes: +MAGNESIUM SULFATE 1 GM/100 ML D5W BAG (10MG/ML) (J3475) IV SCH
[2016-09-13] MEDS ORDERED: HYDR4TAB (16:03)
[2016-09-13] MEDS ORDERED: SYMBICORT (16:03)
== END 2016-09-13 12:30 | disposition home or self-care (01) ==
LOC: M INFU 07:41
PROVIDERS: ATTEND Family Medicine
DX: E83.42 Hypomagnesemia (principal); Z88.0 Allergy status to penicillin; Z88.1 Allergy status to other antibiotic agents; Z88.5 Allergy status to narcotic agent; Z79.899 Other long term (current) drug therapy; Z79.4 Long term (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; Z91.018 Allergy to other foods; Z91.048 Other nonmedicinal substance allergy status; Z91.02 Food additives allergy status

== ENCOUNTER 2016-09-13 15:30 | Emergency (ER) | payer OTHER ==
[~2016-09-13] VITALS: Ht 170.2 cm; Wt 74.8 kg
[~2016-09-13 15:30] MED LIST changes: -MAGNESIUM SULFATE 1 GM/100 ML D5W BAG (10MG/ML) (J3475) IV SCH; -ONDANSETRON 4MG/2ML VIAL (J2405) IV ONE; -SODIUM CHLORIDE 0.9% INJ 10 ML SYR IV SCH
[2016-09-13] MEDS ORDERED: HYDR4TAB (16:03)
[2016-09-13] MEDS ORDERED: SYMBICORT (16:03)
[2016-09-13] MEDS ORDERED: NS 1,000 ML IV SCH (16:10)
[2016-09-13] MEDS ORDERED: ONDANSETRON 4MG/2ML VIAL (J2405) IV ONE (16:15)
[2016-09-13] MEDS ORDERED: HYDROmorphone HCL 1 MG/ML SYRINGE (J1170) IV ONE ×2 (16:15→18:15)
--- NOTE | 2016-09-13 17:39 | REP ---
CT ABDOMEN AND PELVIS WITHOUT IV CONTRAST: CT abdomen and pelvis was performed without oral or IV contrast and compared to multiple prior exams, most recent of which is 09/03/2016. Interstitial densities in the visualized lung bases are chronic and unchanged. The liver, spleen, adrenal, pancreas and kidneys are grossly unremarkable and unchanged. There is no evidence of renal or ureteral calculus and no hydroureteronephrosis. There is no abdominal aortic aneurysm. There is no abdominal aortic aneurysm. There is no adenopathy. There is no free air or free fluid. I see no bowel wall thickening. The patient has had a prior colectomy. Left lower quadrant ostomy is again noted. Multiple metallic clips are seen in the anterior abdominal wall. Metallic clips are seen in the gallbladder fossa status-post cholecystectomy. No pelvic mass is seen. Urinary bladder is grossly unremarkable. IMPRESSION: Stable postsurgical findings as discussed in detail above without evidence of free air or free fluid. No evidence of bowel obstruction. No new findings compared to prior study, most recent of which is 09/03/2016. Signed by Geovanni Camejo MD 09/16/2016 12:35 P
[2016-09-13 17:42] LABS: BASO % 0.5 % (0.0-1.0); EOS # 0.1 K/mm3 (0.0-0.50); EOS % 2.1 % (0.0-3.0); LARGE UNSTAINED CELL # 0.1 K/mm3 (0.0-0.4); LARGE UNSTAINED CELL % 1.7 % (0.0-4.0); LYMPH # 1.7 K/mm3 (1.5-4.5); LYMPH % 31.6 % (24.0-44.0); MEAN CORPUSCULAR HEMOGLOBIN 31.6 pg (27.0-33.0); MEAN CORPUSCULAR VOLUME 98.6 fl (80.0-96.0); MONO # 0.3 K/mm3 (0.0-0.8); MONO % 5.9 % (0.0-5.0); NEUTROPHILS # 3.1 K/mm3 (1.8-7.7); NEUTROPHILS % 58.2 % (36.0-66.0); PLATELET COUNT, AUTOMATED 291 k/mm3 (150-450); RED CELL DISTRIBUTION WIDTH 15.1 % (11.5-14.5); WHITE BLOOD COUNT 5.3 K/mm3 (4.0-10.0)
[2016-09-13 18:01] LABS: ALBUMIN 3.2 GM/DL (3.2-5.2); ALBUMIN/GLOBULIN RATIO 0.71 (1.00-1.93); ALKALINE PHOSPHATASE 124 U/L (45-117); ALT/SGPT 32 U/L (12-78); ANION GAP 6 MEQ/L (8-16); AST/SGOT 22 U/L (15-37); BILIRUBIN,DIRECT < 0.1 MG/DL (0.0-0.2); BILIRUBIN,TOTAL 0.1 MG/DL (0.2-1.0); BLOOD UREA NITROGEN 14 MG/DL (7-18); CALCIUM LEVEL 9.8 MG/DL (8.5-10.1); CARBON DIOXIDE LEVEL 28 MEQ/L (21-32); CHLORIDE LEVEL 105 MEQ/L (98-107); CREATININE FOR GFR 0.61 MG/DL (0.55-1.02); GLOMERULAR FILTRATION RATE > 60.0 (>51); GLUCOSE, FASTING 148 MG/DL (70-105); POTASSIUM SERUM 3.6 MEQ/L (3.5-5.1); SODIUM LEVEL 139 MEQ/L (136-145); TOTAL PROTEIN 7.7 GM/DL (6.4-8.2)
[2016-09-13 19:23] VITALS: BP 118/57
[2016-09-13] MEDS ORDERED: SODIUM CHLORIDE 0.9% INJ 10 ML SYR IV PRN (19:45)
== END 2016-09-13 20:00 | disposition home or self-care (01) ==
LOC: EDBD 15:30 → M ED 16:58
DX: R10.9 Unspecified abdominal pain (principal); K21.9 Gastro-esophageal reflux disease without esophagitis; E11.9 Type 2 diabetes mellitus without complications; J45.909 Unspecified asthma, uncomplicated; E78.5 Hyperlipidemia, unspecified; Z87.442 Personal history of urinary calculi; Z86.718 Personal history of other venous thrombosis and embolism; Z90.49 Acquired absence of other specified parts of digestive tract; Z90.79 Acquired absence of other genital organ(s); Z79.4 Long term (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; Z79.899 Other long term (current) drug therapy; Z91.040 Latex allergy status; Z91.018 Allergy to other foods; Z91.09 Other allergy status, other than to drugs and biological substances; Z88.0 Allergy status to penicillin; Z88.1 Allergy status to other antibiotic agents; Z88.2 Allergy status to sulfonamides; Z88.5 Allergy status to narcotic agent; Z88.8 Allergy status to other drugs, medicaments and biological substances

== ENCOUNTER → 2016-09-16 | Outpatient (CLI) | payer OTHER ==
[~2016-09-16] MED LIST changes: +CETI10TA PO; +CITR1SOL PO; +HYDR4TAB; +MIRA33504 PO; +SIME80TA PO; +SYMBICORT
--- NOTE | 2016-09-29 23:56 | ECWPNPC ---
PATIENT NAME: GLENN FELDER : 1960 GENDER: FEMALE VISIT DATE: 09/16/2016 DISCHARGE DATE: 09/16/16 09 VISIT LOCKED DATE TIME: PHYSICIAN: JENNA FORDE PHYSICIAN PAGER NO: TEXT TO [phone] RESOURCE: JENNA FORDE REASON FOR APPOINTMENT 1. POST TPI HISTORY OF PRESENT ILLNESS HISTORY OF PRESENT ILLNESS: PAIN THE PATIENT DESCRIBES THE PAIN... FALL RISK SCREENING: SCREENING :NO FALLS IN THE PAST YEAR TODAY'S VISIT: NOTES: IS S/P TPI WITH STEROIDS TO NECK AND SHOULDERS ON WITH 100% RELIEF OF PAIN IN THIS AREA. HAS BEEN HAVING INCREASED ABDOMINAL HERNIA AREA PAIN AND WILL BE SEEING DR CHAPA THIS AFTERNOON. WAS IN ER ON 09/13/16 FOR THIS DUE TO UNCONTROLLED PAIN. , :. CURRENT MEDICATIONS TAKING MAY HAVE SAVAGE WAFERS NEW IMAGE SKIN BARRIERS FLATING FLANGES ICD: V55.3 (66544 2 1/2 CHANGE NEEDED (EDUARD), NOTES: CURRENTLY WEARING TAKING BABY WIPES 1 MISCELLANEOUS DIRECTED TOPICALLY PRN DX:569.62 TAKING ROGAINE EXTRA STRENGTH FOR MEN 5 % SOLUTION 1 DROP TO AFFECTED AREA EXTERNALLY TWICE A DAY TAKING MAY SAVAGE BAGS CLEAR VELCRO CLOSER ([id number]) ICD:V55.3 CHANGE NEEDED (EDUARD) TAKING PAPER TAPE 1"X12YD 1 TAPE DIRECTED TOPICALLY DX: 078.10 QID PRN BANDAGE CHANGE TAKING GAUZE STRETCH BANDAGE 2X75 ROLL DIRECTED TOIPICALLY DX:078.10 QID PRN TAKING ADHESIVE TAPE 1 TAPE - TOPICALLY DAILY TAKING GAUZE BANDAGE 2" 1 EACH - TOPICALLY TO RIGHT FINGERS DAILY TAKING COMPRESSION STOCKINGS 20/30 STOCKINGS 724.4 THIGH HIGHS DAILY TAKING GLUCERNA 1.0 CARLOS/FIBER 1 CAN - ORALLY 5 TIMES A DAY TAKING ONETOUCH ULTRA II TEST STRIPS TEST STRIP ULTRA MINI STRIP 1 ASDIR FOUR TIMES DAILY/DX:250.02 TAKING MAGNESIUM _ _ INFUSION INFUSION ONCE WEEKLY TAKING NORMAL SALINE FLUSH 0.9 % SOLUTION 1000CC INFUSED OVER 4 HOURS, WITH 1 GM MAGNESIUM SULFATE INTRAVENOUS DAILY TAKING ONE TOUCH ULTRA 2 LANCET 1 LANCET LANCET ICD:250.02 IDDM FOUR TIMES DAILY TAKING SYMBICORT 160-4.5 MCG/ACT AEROSOL 2 PUFFS INHALATION TWICE A DAY TAKING ZOCOR 20 20MG TABLET 1 TAB(S) ORAL AT BEDTIME TAKING NEEDLE (DISP) 30G X 1 MISCELLANEOUS 250.0 FOR LEVEMIR PEN VITRO DAILY TAKING HEPARIN SODIUM (PORCINE) 5000 UNIT/ML SOLUTION INJECTION ONCE DAILY ON WEDNESDAYS AND FRIDAYS TAKING SYRINGE/NEEDLE (DISP) 1CC DIABETIC 1 SQ FOUR TIMES DAILY/DX:E11.9 IDDM TAKING REGLAN 10 MG TABLET 1 TABLET 30 MINUTES BEFORE MEALS AND AT BEDTIME NEEDED ORALLY FOUR TIMES A DAY TAKING LAC-HYDRIN 12 % LOTION 1 APPLICATION TO AFFECTED AREA EXTERNALLY TWICE A DAY TAKING LOPID 600 MG TABLET 1 TABLET ORALLY DAILY TAKING ONE TOUCH ULTRA SYSTEM KIT METER DIRECTED ONE TOUCH ULTRA MINI-METER ONLY DX: E11.9, E11.21, E11.22, E11.65 TAKING AMITRIPTYLINE HCL 50 MG TABLET DIRECTED ORALLY 1 TAB IN AM AND 3 TABS AT BEDTIME TAKING CARAFATE 1 GM TABLET 1 TABLET ON AN EMPTY STOMACH ORALLY FOUR TIMES DAILY TAKING PEDIALYTE BOTTLE SOLUTION 1 BOTTLE ORALLY DAILY TAKING ONETOUCH LANCETS DELICA LANCET 1 SC 4 TIMES A DAY/DX:E11.90 IDDM TAKING MAGNESIUM OXIDE 400 MG TABLET DIRECTED ORALLY TID TAKING SIMETHICONE 125 MG TABLET CHEWABLE 1 TABLET NEEDED ORALLY FOUR TIMES A DAY PRN ABDOMINAL DISTENTION OR PAIN TAKING ALCOHOL PREPS _ WIPE DX: E11.9 TOPICAL 5 TIMES A DAY NEEDED FOR INJECTIONS TAKING ONE TOUCH ULTRA 2 STRIPS 1 STRIPS 1 STRIP SUBCUTANEOUSLY FOUR TIMES DAILY/DX: E11.9 TAKING CETIRIZINE HCL 10 MG TABLET 1 TABLET NEEDED ORALLY ONCE A DAY TAKING NASACORT AQ 55 MCG/ACT AEROSOL SOLUTION 1 PUFF IN EACH NOSTRIL NASALLY ONCE A DAY TAKING ASTELIN 137 MCG/SPRAY SOLUTION 1 PUFF IN EACH NOSTRIL NASALLY TWICE A DAY TAKING KLOR-CON M20 20 MEQ TABLET EXTENDED RELEASE 1 TABLET ORALLY ONCE A DAY TAKING TIZANIDINE HCL 2 MG TABLET 1/2 TABLET ORALLY TWICE A DAY TAKING TOUJEO SOLOSTAR PENS 450 U/1.5ML PREFILLED PENS 35 UNITS SQ QAM TAKING BD PEN NEEDLE ULTRAFINE 29G X 12.7MM MISCELLANEOUS DIRECTED TOPICALLY DAILY TAKING A & D ZINC OXIDE - CREAM APPLY TO PERINEAL AREA AFTER EACH BM EXTERNALLY DIRECTED TAKING HYDROMORPHONE HCL 4 MG TABLET 1/2 -1 TABLET ORALLY EVERY 4 HRS PRN PAIN MDD=5 TAKING ZOFRAN 4 MG/2ML SOLUTION 2 OR 4 ML IM (MEDICALLY NECESSARY) ONCE A DAY TAKING MIRALAX 1 SUSPENSION 17 GRAMS ORALLY THREE TIMES DAILY TAKING RANITIDINE HCL 150 MG TABLET 1 TABLET ORALLY TWICE A DAY TAKING SYRINGE 25G X 1 MISCELLANEOUS DIRECTED INTRAMUSCULAR ONCE DAILY; ICD:R11.0 TAKING NOVOLOG MIX 70/30 (70-30) 100 UNIT/ML SUSPENSION 25 UNITS SUBCUTANEOUS DAILY AT THE MIDDAY MEAL TAKING LACTULOSE 20 GM/30ML SOLUTION 15 ML ORALLY THREE TIMES DAILY TAKING BD SYRINGE/NEEDLE 23G X 1 MISCELLANEOUS 1 SYRINGE INTRAMUSCULARLY TWICE DAILY DX:R11.0 NOT-TAKING CEFDINIR 300 MG CAPSULE 1 CAPSULE ORALLY EVERY 12 HRS NOT-TAKING BENZONATATE 200 MG CAPSULE 1 CAPSULE ORALLY THREE TIMES A DAY NEEDED FOR COUGH NOT-TAKING PREDNISONE 20 MG TABLET 2 TABS WITH FOOD ORALLY ONCE A DAY NOT-TAKING LIDOCAINE 5 % OINTMENT 1 APPLICATION TO AFFECTED AREA NEEDED EXTERNALLY THREE TIMES A DAY TO BACK OF HEAD/NECK PRN PAIN, NOTES: 02/11/16 NOT-TAKING PREDNISONE 20 MG TABLET 3 TABLET ORALLY ONCE A DAY FOR 5 DAYS NOT-TAKING DOXYCYCLINE HYCLATE 100 MG CAPSULE 1 CAPSULE ORALLY EVERY 12 HRS, NOTES: LAST DOSE 02/12/2016 NOT-TAKING DOXYCYCLINE MONOHYDRATE 100 MG TABLET 1 TABLET ORALLY EVERY 12 HRS NOT-TAKING MILK OF MAGNESIA 7.75 % SUSPENSION 5 ML NEEDED ORALLY TWICE DAILY, NOTES: 12-25-151999 NOT-TAKING NYSTATIN POWDER 198335 UNIT/GM POWDER DIRECTED EXTERNALLY TWICE A DAY TO SKIN SURROUNDING STOMA INTIL HEALED, NOTES: NONE NOT-TAKING BENADRYL ALLERGY 25 MG TABLET 1 TABLET NEEDED ORALLY EVERY 6 HRS NOT-TAKING KETOTIFEN FUMARATE 0.025 % SOLUTION 1 DROP INTO AFFECTED EYE OPHTHALMIC TWICE A DAY MEDICATION LIST REVIEWED AND RECONCILED WITH THE PATIENT PAST MEDICAL HISTORY DM II WITH NEUROPATHY ASTHMA HYPERLIPIDEMIA GERD NEPHROLITHIASIS ALLERGIC RHINITIS CHRONIC MAXILLARY SINUSITIS CHRONIC HEADACHES (PAIN MANAGEMENT) CHRONIC PAIN SYNDROME/RSD (PAIN MANAGEMENT) PERSONAL HISTORY OF VENOUS THROMBOSIS AND EMBOLISM (RESOLVED 12/19/2009) H/O MULTIPLE ABDOMINAL SURGERIES ALLERGIES IODINE: NERVES, TIGHT MUSCLES: SIDE EFFECTS GABAPENTIN: NERVOUS SYSTEM,SHAKEY: SIDE EFFECTS GABITRIL: NERVOUS: SIDE EFFECTS KETOROLAC TROMETHAMINE: VOMITING: SIDE EFFECTS MEPERIDINE HCL: OUT OF BODY EXPERIENCE: SIDE EFFECTS MORPHINE SULFATE: SEVERE H/A WITH BIG DOSE: SIDE EFFECTS PROMETHAZINE HCL: OUT OF BODY EXPERIENCE: SIDE EFFECTS TRAMADOL: SHAKES: SIDE EFFECTS OXYCODONE: VOMITING,HIVES: ALLERGY PENICILLIN (FOR ALLERGIES USE ONLY): HIVES: ALLERGY FENTANYL: NERVOUS: SIDE EFFECTS DROPERIDOL: OUT OF BODY: SIDE EFFECTS CODEINE SULFATE: OUT OF BODY EXPERIENCE: SIDE EFFECTS PHENOTHIAZINES: NERVOUS SYSTEM: SIDE EFFECTS QUINOLONES- CIPRO,TEQUIN: HIVES: ALLERGY RED FOOD DYE: RASH: ALLERGY LIDODERM (LICOCANINE): HEART RACES: SIDE EFFECTS SULFA: HIVES: ALLERGY ASPIRIN: HIVES: ALLERGY ATIVAN: HALLUCINATIONS: SIDE EFFECTS AZITHROMYCIN: HIVES: ALLERGY BACLOFEN: AFFECTED NERVOUS SYT: SIDE EFFECTS LYRICA: SHAKES, EVERYTHING IS BLACK: SIDE EFFECTS VICODIN: CONFUSION: SIDE EFFECTS MACROBID: HIVES, BLURRED VISION: ALLERGY READI-CAT: HIVES: ALLERGY ALBUTEROL SULFATE: COUGH: ALLERGY GASTROGRAFIN: ONLY 1 BOTTLE PER TEST DAY (CAN NOT TOLERATE ANY MORE THAN 1 BOTTLE): CONTRAINDICATION LATEX (FOR ALLERGY USE ONLY): DIFFICULTY : ALLERGY REVIEW OF SYSTEMS CONSTITUTIONAL: ANY CHANGE IN YOUR MEDICAL CONDITION? NO . CHILLS NO . FEVER NO . INFECTION: DO YOU HAVE NEW INFECTIONS? NO . DO YOU HAVE HISTORY OF MRSA? NO . MUSCULOSKELETAL: ANY NEW PATTERNS OF PAIN OR NUMBNESS? NO . FOOT CARE HAD FALL IN JUNE WITH TORN LIGAMENT TO LEFT FOOT. PHYSICAL THERAPY PER HUMAN RESOURCE ANALYST. . GASTROENTEROLOGY: ANY NEW CHANGE IN BOWEL CONTROL? NO . GENITOURINARY: ANY NEW CHANGE IN BLADDER CONTROL? NO . IS THERE A CHANCE YOU COULD BE ? NO . HEMATOLOGY/LYMPH: DO YOU TAKE ANY BLOOD THINNERS? (FOR EXAMPLE- COUMADIN, PLAVIX, AGGRENOX, PLATEL, PRADAXA, OR XARELTO) NO . WHEN WAS YOUR LAST DOSE? DATE: TIME: . NEUROLOGY: HAVE YOU FALLEN IN THE PAST 6 MONTHS? NO . ANY NEW EXTREMITY NUMBNESS OR WEAKNESS? NO . CARDIOLOGY: DO YOU HAVE A PACEMAKER OR DEFIBRILLATOR? NO . RESPIRATORY: HAVE YOU BEEN SICK IN THE PAST WEEK? NO . FEVER NO . FLU LIKE SYMPTOMS? NO . COUGH NO . INTEGUMENTARY: DO YOU HAVE ANY RASHES OR OPEN SORES? NO . ALLERGIC/IMMUNO: ARE YOU ALLERGIC TO SHELLFISH OR IV DYE? YES . ANY NEW ALLERGIES? NO . PSYCHIATRIC: DO YOU HAVE THOUGHTS OF HURTING YOURSELF OR SOMEONE ELSE? NO . ARE YOU ABUSED, NEGLECTED, OR IN AN UNSAFE ENVIRONMENT? NO . ENDOCRINOLOGY: ARE YOU DIABETIC? YES - LABILE 91-350 . OTHER: DO YOU NEED ANY PRESCRIPTIONS? YES . IF YES, PLEASE LIST: HYDROMORPHONE 4MG . ANY NEW PROBLEMS WITH YOUR MEDICATIONS? NO . WHEN DID YOU LAST EAT? ____ . WHEN DID YOU LAST DRINK? ____ . WHAT DID YOU LAST DRINK? ____ . NAME OF PERSON DRIVING YOU HOME? ____ . DO YOU HAVE ANY OTHER QUESTIONS OR CONCERNS NO . REVIEWED BY: PROVIDER: JENNA SANABRIA . VITAL SIGNS WT 165.0 LBS, HT 67 IN, BMI 25.84 INDEX, BP 111/75 MM HG, HR 86 /MIN, RR 16 /MIN, TEMP 97.6 F, OXYGEN SAT % 99%, NA INITIALS TL 0857, REVIEWED BY: CS. EXAMINATION GENERAL EXAMINATION: HEENT:FACE FLUSHED. LUNGS:CLEAR TO AUSCULTATION BILATERALLY. NO WHEEZES. RALES OR RHONCHI. HEART:NORMAL S1S2, NO MURMURS, CLICK OR RUBS. 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 GAIT ANTALGIC. CANE USED FOR BALANCE. ASSESSMENTS OCCIPITAL NEURALGIA - M54.81 (PRIMARY) MYALGIA - M79.1 CHRONIC PRESCRIPTION OPIATE USE - Z79.891 TREATMENT OCCIPITAL NEURALGIA REFILL HYDROMORPHONE HCL TABLET, 4 MG, 1/2 -1 TABLET, ORALLY, EVERY 4 HRS PRN PAIN MDD=5, 30 DAY(S), 90, REFILLS 0 CLINICAL NOTES: ISTOP REGISTRY REVIEWED AND DEMNOSTRATES COMPLLIANCE. BRINGS IN MEDICATIONS WHICH IS APPROPRIATE FOR WHAT WAS DISPENSED. RECENT URINE TOXICOLOGY REVIEWED. NO UNAUTHORIZED MEDICATIONS. NO ILLICIT SUBSTANCES AND PRESCRIBED MEDICATIONS WERE PRESENT. PROCEDURE CODES [id number] ESTABILISHED PATIENT [facility] CHARGE DISPOSITION & COMMUNICATION FOLLOW UP 6 WEEKS (REASON: NECK/OCCIPITAL PAIN) ELECTRONICALLY SIGNED BY JONATAN LANGFORD ON 09/29/2016 AT 04:05 PM EDT DISCLAIMER : THIS IS A VISIT SUMMARY EXTRACTED FROM THE [facility] CHART. IT IS NOT A COPY OF THE [facility] PROGRESS NOTE. MARLYN
== END ==
LOC: M PAIN 09:00
PROVIDERS: ATTEND Nurse Practitioner Family
DX: G89.29 Other chronic pain (principal); M54.81 Occipital neuralgia; M79.1 Myalgia; E11.9 Type 2 diabetes mellitus without complications; J44.9 Chronic obstructive pulmonary disease, unspecified; E78.5 Hyperlipidemia, unspecified; K21.9 Gastro-esophageal reflux disease without esophagitis; G90.50 Complex regional pain syndrome I, unspecified; Z88.8 Allergy status to other drugs, medicaments and biological substances; Z88.5 Allergy status to narcotic agent; Z88.0 Allergy status to penicillin; Z91.018 Allergy to other foods; Z88.2 Allergy status to sulfonamides; Z88.6 Allergy status to analgesic agent; Z91.040 Latex allergy status; Z91.09 Other allergy status, other than to drugs and biological substances; Z79.4 Long term (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; Z79.891 Long term (current) use of opiate analgesic; Z79.899 Other long term (current) drug therapy

== ENCOUNTER 2016-09-18 07:44 | Outpatient (CLI) | payer OTHER ==
[~2016-09-18 07:44] MED LIST changes: -CETI10TA PO; -CITR1SOL PO; -MIRA33504 PO; +ONDANSETRON 4MG/2ML VIAL (J2405) IV ONE; -SIME80TA PO
[2016-09-18] MEDS ORDERED: SODIUM CHLORIDE 0.9% INJ 10 ML SYR IV SCH (09:00)
== END 2016-09-18 08:30 | disposition home or self-care (01) ==
LOC: M INFU 07:44
PROVIDERS: ATTEND Family Medicine
DX: E83.42 Hypomagnesemia (principal); Z88.5 Allergy status to narcotic agent; Z88.8 Allergy status to other drugs, medicaments and biological substances; Z88.1 Allergy status to other antibiotic agents; Z88.0 Allergy status to penicillin; Z91.018 Allergy to other foods; Z91.048 Other nonmedicinal substance allergy status; Z91.02 Food additives allergy status; Z79.4 Long term (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; Z79.899 Other long term (current) drug therapy

== ENCOUNTER 2016-09-20 07:41 | Outpatient (CLI) | payer OTHER ==
[~2016-09-20] VITALS: Ht 170.2 cm; Wt 77.1 kg
[~2016-09-20 07:41] MED LIST changes: +MAGNESIUM SULFATE 1 GM/100 ML D5W BAG (10MG/ML) (J3475) IV SCH
[2016-09-20] MEDS ORDERED: SODIUM CHLORIDE 0.9% INJ 10 ML SYR IV SCH (09:00)
== END 2016-09-20 12:15 | disposition home or self-care (01) ==
LOC: M INFU 07:41
PROVIDERS: ATTEND Family Medicine
DX: E83.42 Hypomagnesemia (principal); Z88.5 Allergy status to narcotic agent; Z88.1 Allergy status to other antibiotic agents; Z88.0 Allergy status to penicillin; Z88.8 Allergy status to other drugs, medicaments and biological substances; Z91.048 Other nonmedicinal substance allergy status; Z91.02 Food additives allergy status; Z79.4 Long term (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; Z79.899 Other long term (current) drug therapy; Z91.018 Allergy to other foods

== ENCOUNTER 2016-09-25 07:36 | Outpatient (CLI) | payer OTHER ==
[~2016-09-25] VITALS: Ht 170.2 cm; Wt 77.7 kg
[2016-09-25] MEDS ORDERED: SODIUM CHLORIDE 0.9% INJ 10 ML SYR IV SCH (09:00)
== END 2016-09-25 08:15 | disposition home or self-care (01) ==
LOC: M INFU 07:36
PROVIDERS: ATTEND Family Medicine
DX: E83.42 Hypomagnesemia (principal); Z88.5 Allergy status to narcotic agent; Z88.1 Allergy status to other antibiotic agents; Z88.0 Allergy status to penicillin; Z91.018 Allergy to other foods; Z91.048 Other nonmedicinal substance allergy status; Z91.02 Food additives allergy status; Z88.8 Allergy status to other drugs, medicaments and biological substances; Z79.4 Long term (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; Z79.899 Other long term (current) drug therapy

== ENCOUNTER 2016-09-25 08:19 | Outpatient (RCR) | payer OTHER ==
[~2016-09-25 08:19] MED LIST changes: -ASPI81TA13 PO; +ASPI81TA24 PO; +CALALOT TOP; -CALALOT3 TOP; -COLA100C3 PO; +COLA100C5 PO; -DILA2TAB2 PO; +DILA2TAB6 PO; -DILA4TAB PO; +DILA4TAB13 PO; -GAS125CH PO; -LEVA750T PO; +LEVA750T7 PO; -LIDO5DIS36 TD; +LIDO5DIS41 TD; -MAGNESIUM SULFATE 1 GM/100 ML D5W BAG (10MG/ML) (J3475) IV SCH; -METF1000 PO; +METF10004 PO; -METF500T PO; +METF500T13 PO; +NOVO1INJ4 SC; -NOVO70IN SC; -ONDA1TAB16 PO; +ONDA8TAB7 PO; -ONDANSETRON 4MG/2ML VIAL (J2405) IV ONE; -PROA1AER IN; +PROAAER10 IN; +[UNRECOGNIZED DRUG - CODE] PO
[2016-10-01] MEDS ORDERED: CETI10TA PO (03:21)
[2016-10-01] MEDS ORDERED: SIME80TA PO (03:21)
[2016-10-01] MEDS ORDERED: MIRA33504 PO (03:21)
[2016-10-01] MEDS ORDERED: CITR1SOL PO (03:21)
[2016-10-10] MEDS ORDERED: KEFL500C17 PO (18:05)
[2016-10-10] MEDS ORDERED: CEPH500C PO (21:12)
== END 2016-10-11 | disposition home or self-care (01) ==
LOC: M PT 08:19
PROVIDERS: ATTEND Podiatrist Foot & Ankle Surgery
DX: Z51.89 Encounter for other specified aftercare (principal); M72.2 Plantar fascial fibromatosis

== ENCOUNTER 2016-09-27 07:43 | Outpatient (CLI) | payer OTHER ==
[~2016-09-27] VITALS: Ht 170.2 cm; Wt 77.1 kg
[~2016-09-27 07:43] MED LIST changes: +ASPI81TA13 PO; -ASPI81TA24 PO; -CALALOT TOP; +CALALOT3 TOP; +COLA100C3 PO; -COLA100C5 PO; +DILA2TAB2 PO; -DILA2TAB6 PO; +DILA4TAB PO; -DILA4TAB13 PO; +GAS125CH PO; +LEVA750T PO; -LEVA750T7 PO; +LIDO5DIS36 TD; -LIDO5DIS41 TD; +METF1000 PO; -METF10004 PO; +METF500T PO; -METF500T13 PO; -NOVO1INJ4 SC; +NOVO70IN SC; +ONDA1TAB16 PO; -ONDA8TAB7 PO; +ONDANSETRON 4MG/2ML VIAL (J2405) IV ONE; +PROA1AER IN; -PROAAER10 IN; -[UNRECOGNIZED DRUG - CODE] PO
[2016-09-27] MEDS ORDERED: MAGNESIUM SULFATE 1 GM/100 ML D5W BAG (10MG/ML) (J3475) IV SCH (07:45)
[2016-09-27] MEDS ORDERED: SODIUM CHLORIDE 0.9% INJ 10 ML SYR IV SCH (09:00)
== END 2016-09-27 12:10 | disposition home or self-care (01) ==
LOC: M INFU 07:43
PROVIDERS: ATTEND Family Medicine
DX: E83.42 Hypomagnesemia (principal); Z88.8 Allergy status to other drugs, medicaments and biological substances; Z88.5 Allergy status to narcotic agent; Z88.1 Allergy status to other antibiotic agents; Z88.0 Allergy status to penicillin; Z91.018 Allergy to other foods; Z91.048 Other nonmedicinal substance allergy status; Z91.02 Food additives allergy status; Z79.4 Long term (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; Z79.899 Other long term (current) drug therapy

== ENCOUNTER 2016-09-30 21:11 | Inpatient (IN) | payer OTHER ==
[~2016-09-30] VITALS: Ht 170.2 cm; Wt 77.4 kg
[~2016-09-30 21:11] MED LIST changes: -ONDANSETRON 4MG/2ML VIAL (J2405) IV ONE
[2016-09-30 23:09] LABS: BASO % 0.4 % (0.0-1.0); EOS # 0.1 K/mm3 (0.0-0.50); EOS % 1.4 % (0.0-3.0); LARGE UNSTAINED CELL # 0.1 K/mm3 (0.0-0.4); LARGE UNSTAINED CELL % 1.6 % (0.0-4.0); LYMPH % 24.8 % (24.0-44.0); MEAN CORPUSCULAR HEMOGLOBIN 30.7 pg (27.0-33.0); MEAN CORPUSCULAR HGB CONC 31.3 g/dl (32.0-36.5); MONO # 0.4 K/mm3 (0.0-0.8); MONO % 5.3 % (0.0-5.0); NEUTROPHILS # 5.2 K/mm3 (1.8-7.7); NEUTROPHILS % 66.6 % (36.0-66.0); PLATELET COUNT, AUTOMATED 324 k/mm3 (150-450); RED CELL DISTRIBUTION WIDTH 14.8 % (11.5-14.5); WHITE BLOOD COUNT 7.8 K/mm3 (4.0-10.0)
[2016-09-30] MEDS ORDERED: LIDOCAINE 2% JELLY 30 ML As Ordered ONE (23:16)
[2016-09-30 23:31] LABS: ALBUMIN 3.6 GM/DL (3.2-5.2); ALBUMIN/GLOBULIN RATIO 0.72 (1.00-1.93); ALKALINE PHOSPHATASE 118 U/L (45-117); ALT/SGPT 29 U/L (12-78); AMYLASE 39 U/L (25-115); ANION GAP 6 MEQ/L (8-16); AST/SGOT 15 U/L (15-37); BILIRUBIN,DIRECT < 0.1 MG/DL (0.0-0.2); BILIRUBIN,TOTAL 0.2 MG/DL (0.2-1.0); BLOOD UREA NITROGEN 21 MG/DL (7-18); CALCIUM LEVEL 10.6 MG/DL (8.5-10.1); CARBON DIOXIDE LEVEL 34 MEQ/L (21-32); CHLORIDE LEVEL 98 MEQ/L (98-107); CREATININE FOR GFR 0.74 MG/DL (0.55-1.02); GLOMERULAR FILTRATION RATE > 60.0 (>51); GLUCOSE, FASTING 176 MG/DL (70-105); POTASSIUM SERUM 3.5 MEQ/L (3.5-5.1); SODIUM LEVEL 138 MEQ/L (136-145); TOTAL PROTEIN 8.6 GM/DL (6.4-8.2)
[2016-09-30] MEDS ORDERED: HYDROmorphone HCL 1 MG/ML SYRINGE (J1170) IV ONE (23:45)
[2016-10-01] MEDS ORDERED: ONDANSETRON 4MG/2ML VIAL (J2405) IV ONE (00:15)
--- NOTE | 2016-10-01 01:05 | REP ---
Clinical: Abdominal pain. Small bowel obstruction. Comparison: 09/13/2016. Findings: The patient is noted to be status post complete colectomy with Maribell's pouch in the pelvis and ileostomy via the left anterior abdominopelvic wall. Moderately distended loops of small bowel are appreciated within the pelvis demonstrating fluid and fecal bowel sign raising the possibility of ileus and early/partial small bowel obstruction. A nasogastric tube is identified extending into the stomach in satisfactory position. No free air, free fluid or drainable collection/abscess. Liver, spleen, pancreas, bilateral adrenal glands and kidneys are normal. The patient is status post cholecystectomy. Pelvis demonstrates normal bladder and evidence for prior hysterectomy. No adenopathy. Abdominal aorta without aneurysm. Musculoskeletal structures demonstrate age-related changes. Lung bases demonstrate chronic fibroatelectatic changes. Impression: 1. Evidence to suggest early/partial small bowel obstruction versus ileus possibly due to adhesions. Prior total colectomy and ileostomy via the left anterior abdominopelvic wall. 2. No free air, free fluid, or drainable collection/abscess. Signed by Darius Roth MD 10/01/2016 12:57 A
[2016-10-01] MEDS ORDERED: HYDROmorphone HCL 1 MG/ML SYRINGE (J1170) IV PRN (01:15)
--- NOTE | 2016-10-01 01:58 | REP ---
Clinical: Abdominal pain and distension. Technique: Upright view of the chest and abdomen with supine view of the abdomen and pelvis. Findings: Frontal view of the chest cannot exclude acute versus chronic left basilar pleuroparenchymal changes. No free air below diaphragm to suspect pneumoperitoneum. Supine and upright views of the abdomen and pelvis demonstrate evidence of prior surgery including ostomy overlying the left abdominal pelvic wall. The bowel gas pattern is relatively nonspecific. No obvious organomegaly. Skeletal structures are intact. Impression: Evidence for multiple surgeries including ostomy overlying the left abdominopelvic wall. Bowel gas pattern is nonspecific. Signed by Darius Roth MD 10/01/2016 01:50 A
[2016-10-01] MEDS ORDERED: MIRA33504 PO (03:21)
[2016-10-01] MEDS ORDERED: CETI10TA PO (03:21)
[2016-10-01] MEDS ORDERED: CITR1SOL PO (03:21)
[2016-10-01] MEDS ORDERED: SIME80TA PO (03:21)
[2016-10-01] MEDS ORDERED: MORPHINE 2 MG/ML 1ML SYRINGE IV PRN (03:30)
[2016-10-01] MEDS: LR 1,000 ML IV SCH ×3 (03:33→22:02)
[2016-10-01] MEDS: ONDANSETRON 4MG/2ML VIAL (J2405) IV PRN ×2 (08:02→19:43)
[2016-10-01] MEDS: HYDROmorphone HCL 1 MG/ML SYRINGE (J1170) IV PRN ×3 (08:03→19:44)
[2016-10-01] MEDS: AZELASTINE 137MCG NASAL SPY 30 ML (ASTELIN) SCH ×2 (09:00→22:03)
[2016-10-01] MEDS ORDERED: MAGNESIUM CITRATE 300 ML BTL PO PRN (10:45)
[2016-10-01] MEDS ORDERED: GLUCAGON FOR INJ 1 MG VIAL (J1610) SC PRN (10:45)
[2016-10-01] MEDS ORDERED: LACTIC ACID 12% LOTION 225 GM BTL TOP PRN (10:45)
[2016-10-01] MEDS ORDERED: DEXTROSE 50% 50 ML SYRINGE IV PRN (10:45)
[2016-10-01] MEDS ORDERED: ACETAMINOPHEN TAB 650MG DOSE (2X325MG) PO PRN (10:45)
[2016-10-01] MEDS ORDERED: SIMETHICONE 80 MG CHEW TAB PO PRN (10:45)
[2016-10-01] MEDS ORDERED: GLUCOSE 4 GM CHEW TABLET PO PRN (10:45)
[2016-10-01 11:33] LABS: MAGNESIUM LEVEL 1.9 MG/DL (1.8-2.4)
[2016-10-01] MEDS: SYMBICORT 160/4.5MCG INHALER 6GM INH SCH ×2 (11:54→18:59)
[2016-10-01] MEDS: LACTULOSE 20 GM/30 ML SYRUP UD PO SCH ×3 (12:07→22:03)
[2016-10-01] MEDS: METOCLOPRAMIDE 10 MG TAB PO SCH ×3 (12:07→22:01)
[2016-10-01] MEDS: AMITRIPTYLINE 50 MG TAB PO SCH ×2 (12:07→22:01)
[2016-10-01] MEDS: FAMOTIDINE 20 MG TAB PO SCH ×2 (12:08→22:02)
[2016-10-01] MEDS: GEMFIBROZIL 600 MG TAB PO SCH (12:08)
[2016-10-01] MEDS: MIRALAX *UNIT DOSE* 17GM PACKET PO SCH ×2 (12:08→17:13)
[2016-10-01] MEDS: CETIRIZINE (ZyrTEC) 10 MG TAB PO SCH (12:08)
[2016-10-01] MEDS: SUCRALFATE 1 GM TAB PO SCH ×3 (12:08→22:02)
[2016-10-01] MEDS: HumaLOG INSULIN (NovoLOG) PER UNIT SC SCH ×3 (13:26→21:00)
[2016-10-01] MEDS: HumuLIN (NovoLIN)70/30 INSULIN INJ PER UNIT SC SCH (13:27)
[2016-10-01] MEDS: HEPARIN SOD (PORCINE) 5000 UNITS/ML VIAL SC SCH ×2 (13:43→22:03)
--- NOTE | 2016-10-01 20:02 | HPE ---
DATE OF ADMISSION: 10/01/2016 CHIEF COMPLAINT: Abdominal pain, nausea, and vomiting. HISTORY OF PRESENT ILLNESS: The patient is a 56-year-old female who presents well known to our service. She has had multiple hospital admissions over the years for bowel obstructions. Most recent admission was in June of this year. For past couple days she has had increased abdominal distension, increased abdominal pain, decreased output from ostomy, as well as some nausea and vomiting. In the emergency room (ER) she had a CT scan, which shows dilated loops of small bowel suggestive of an early small-bowel versus partial small bowel-obstruction. Therefore, I was called to evaluate. She has a nasogastric (NG) tube in place. She has had two large stools in her ostomy overnight. Labs are stable. Vital signs have been stable. She denies any nausea, vomiting. No fever, sweats, or chills this morning. She is having output from ostomy, but she is still having some significant abdominal distension and increase in pain from her baseline. ALLERGIES: Multiple. Please see medical records. MEDICATIONS: Please see medication reconciliation. PAST MEDICAL HISTORY: 1. Diabetes. 2. Asthma. 3. Hyperlipidemia. 4. Gastroesophageal reflux disease (GERD)/ 5. Nephrolithiasis. 6. Allergic rhinitis. 7. Maxillary sinusitis. 8. Chronic headaches. 9. Reflex sympathetic dystrophy. 10. Deep vein thromboses (DVTs). PAST SURGICAL HISTORY: 1. Lumpectomy. 2. Total hysterectomy. 3. Tubo-ovarian cyst removal. 4. Bilateral sympathectomy. 5. Arteriovenous (AV) fistula repair on the left leg. 6. Cholecystectomy. 7. Small-bowel obstruction repair in 2001. 8. Abdominal hernia repair in 2004. 9. Ventral hernia repair in 2009. 10. Dorsal column stimulator placement and replacement in 2010. 11. Small-bowel resection and ventral hernia repair in 2012. 12. Parastomal hernia repair as well as two other abdominal hernia repairs in 2012. 13. Another abdominal hernia repair in 2013. 14. Parastomal hernia repair in 2014 and another parastomal hernia repair this past June. FAMILY HISTORY: Noncontributory. SOCIAL HISTORY: Denies drug, alcohol, or tobacco abuse. REVIEW OF SYSTEMS: Pertinent positives and negatives stated in the history of present illness (HPI). PHYSICAL EXAMINATION: GENERAL: Alert and oriented times three. No acute distress. VITAL SIGNS: Temperature 98.2, pulse 94, respirations 18, blood pressure 132/81, pulse oximetry 90%. HEENT: Pupils equally round and reactive to light and accommodation. HEART: S1, S2, regular rate and rhythm. LUNGS: Clear to auscultation bilaterally. ABDOMEN: Soft, slightly distended. Mild tenderness diffusely. No rebounding or guarding. EXTREMITIES: No clubbing, cyanosis, or edema. LABORATORY DATA: White count 7.8, hemoglobin 12.1, platelets 324. Sodium 138, potassium 3.5, lactic acid 1.9, magnesium 1.9. IMAGING: CT abdomen and pelvis shows evidence to suggest early versus partial small-bowel obstruction versus ileus, likely due to adhesions, prior total colectomy and ileostomy via left anterior abdominal wall. No signs of free air, free fluid, or drainable collections or abscesses. ASSESSMENT AND PLAN: The patient is a 56-year-old female with history of extensive abdominal surgeries who presents with partial versus early small-bowel obstruction versus ileus. RECOMMENDATIONS: Continue with NG tube for now. Will let her have clear liquid diet along with the NG tube, since she is having good output from ostomy. Recommend to continue with ambulation, full movement. Will keep her back on a sliding scale for insulin and will resume all of her home medications. As long as she tolerates good output from her ostomy by this afternoon, we will clamp the NG tube and keep it clamped until tomorrow morning. If she is tolerating it clamped, we will remove to NG tube in the morning, advance her to regular diet, and plan on discharge home tomorrow.
[2016-10-01 22:00] VITALS: BP 139/76
[2016-10-02] MEDS: ONDANSETRON 4MG/2ML VIAL (J2405) IV PRN ×3 (02:00→13:38)
[2016-10-02] MEDS: HYDROmorphone HCL 1 MG/ML SYRINGE (J1170) IV PRN ×4 (02:01→20:49)
[2016-10-02] MEDS: LR 1,000 ML IV SCH ×3 (03:09→20:07)
[2016-10-02] MEDS: HEPARIN SOD (PORCINE) 5000 UNITS/ML VIAL SC SCH ×3 (05:35→22:01)
[2016-10-02 05:46] LABS: MEAN CORPUSCULAR HEMOGLOBIN 31.5 pg (27.0-33.0); MEAN CORPUSCULAR HGB CONC 31.9 g/dl (32.0-36.5); MEAN CORPUSCULAR VOLUME 98.8 fl (80.0-96.0); RED CELL DISTRIBUTION WIDTH 14.5 % (11.5-14.5); WHITE BLOOD COUNT 5.3 K/mm3 (4.0-10.0)
[2016-10-02 06:00] VITALS: BP 138/70
[2016-10-02 06:09] LABS: ALBUMIN 2.9 GM/DL (3.2-5.2); ALBUMIN/GLOBULIN RATIO 0.78 (1.00-1.93); ALKALINE PHOSPHATASE 107 U/L (45-117); ALT/SGPT 31 U/L (12-78); ANION GAP 7 MEQ/L (8-16); AST/SGOT 21 U/L (15-37); BILIRUBIN,TOTAL 0.2 MG/DL (0.2-1.0); BLOOD UREA NITROGEN 12 MG/DL (7-18); CARBON DIOXIDE LEVEL 29 MEQ/L (21-32); CHLORIDE LEVEL 104 MEQ/L (98-107); CREATININE FOR GFR 0.52 MG/DL (0.55-1.02); GLOMERULAR FILTRATION RATE > 60.0 (>51); GLUCOSE, FASTING 159 MG/DL (70-105); MAGNESIUM LEVEL 1.5 MG/DL (1.8-2.4); POTASSIUM SERUM 3.8 MEQ/L (3.5-5.1); SODIUM LEVEL 140 MEQ/L (136-145); TOTAL PROTEIN 6.6 GM/DL (6.4-8.2)
[2016-10-02] MEDS: FAMOTIDINE 20 MG TAB PO SCH ×2 (08:18→20:05)
[2016-10-02] MEDS: MIRALAX *UNIT DOSE* 17GM PACKET PO SCH ×3 (08:19→17:03)
[2016-10-02] MEDS: AMITRIPTYLINE 50 MG TAB PO SCH ×2 (08:19→20:05)
[2016-10-02] MEDS: CETIRIZINE (ZyrTEC) 10 MG TAB PO SCH (08:19)
[2016-10-02] MEDS: METOCLOPRAMIDE 10 MG TAB PO SCH ×4 (08:19→20:05)
[2016-10-02] MEDS: SUCRALFATE 1 GM TAB PO SCH ×4 (08:19→20:04)
[2016-10-02] MEDS: LACTULOSE 20 GM/30 ML SYRUP UD PO SCH ×3 (08:19→20:04)
[2016-10-02] MEDS: GEMFIBROZIL 600 MG TAB PO SCH (08:19)
[2016-10-02] MEDS: HumaLOG INSULIN (NovoLOG) PER UNIT SC SCH ×4 (08:20→20:06)
[2016-10-02] MEDS: SYMBICORT 160/4.5MCG INHALER 6GM INH SCH ×2 (08:25→20:46)
[2016-10-02] MEDS: AZELASTINE 137MCG NASAL SPY 30 ML (ASTELIN) SCH ×2 (09:19→20:05)
[2016-10-02] MEDS: HumuLIN (NovoLIN)70/30 INSULIN INJ PER UNIT SC SCH (12:27)
[2016-10-02 14:00] VITALS: BP 127/60
[2016-10-02] MEDS: MAG SULF 1GM/100ML (MAG RUN) 1 GM in APPROPRIATE DILUENT 1 EA IV SCH ×4 (14:32→18:44)
[2016-10-02 21:57] VITALS: BP 124/64
[2016-10-03] MEDS: ONDANSETRON 4MG/2ML VIAL (J2405) IV PRN ×2 (01:44→08:23)
[2016-10-03] MEDS: LR 1,000 ML IV SCH (03:24)
[2016-10-03] MEDS: HYDROmorphone HCL 1 MG/ML SYRINGE (J1170) IV PRN ×2 (03:25→09:48)
[2016-10-03] MEDS: HEPARIN SOD (PORCINE) 5000 UNITS/ML VIAL SC SCH (05:09)
[2016-10-03 05:23] LABS: MEAN CORPUSCULAR HEMOGLOBIN 31.8 pg (27.0-33.0); MEAN CORPUSCULAR HGB CONC 32.5 g/dl (32.0-36.5); MEAN CORPUSCULAR VOLUME 97.9 fl (80.0-96.0); RED CELL DISTRIBUTION WIDTH 14.9 % (11.5-14.5); WHITE BLOOD COUNT 4.2 K/mm3 (4.0-10.0)
[2016-10-03 06:00] VITALS: BP 122/68
[2016-10-03 06:02] LABS: ALBUMIN 2.8 GM/DL (3.2-5.2); ALBUMIN/GLOBULIN RATIO 0.74 (1.00-1.93); ALKALINE PHOSPHATASE 110 U/L (45-117); ALT/SGPT 25 U/L (12-78); ANION GAP 8 MEQ/L (8-16); AST/SGOT 20 U/L (15-37); BILIRUBIN,TOTAL 0.2 MG/DL (0.2-1.0); BLOOD UREA NITROGEN 6 MG/DL (7-18); CARBON DIOXIDE LEVEL 28 MEQ/L (21-32); CHLORIDE LEVEL 105 MEQ/L (98-107); CREATININE FOR GFR 0.56 MG/DL (0.55-1.02); GLOMERULAR FILTRATION RATE > 60.0 (>51); GLUCOSE, FASTING 170 MG/DL (70-105); MAGNESIUM LEVEL 1.9 MG/DL (1.8-2.4); SODIUM LEVEL 141 MEQ/L (136-145); TOTAL PROTEIN 6.6 GM/DL (6.4-8.2)
[2016-10-03] MEDS: SYMBICORT 160/4.5MCG INHALER 6GM INH SCH (07:42)
[2016-10-03] MEDS: LACTULOSE 20 GM/30 ML SYRUP UD PO SCH (08:23)
[2016-10-03] MEDS: MIRALAX *UNIT DOSE* 17GM PACKET PO SCH (08:23)
[2016-10-03] MEDS: GEMFIBROZIL 600 MG TAB PO SCH (08:24)
[2016-10-03] MEDS: METOCLOPRAMIDE 10 MG TAB PO SCH (08:24)
[2016-10-03] MEDS: FAMOTIDINE 20 MG TAB PO SCH (08:24)
[2016-10-03] MEDS: CETIRIZINE (ZyrTEC) 10 MG TAB PO SCH (08:24)
[2016-10-03] MEDS: HumaLOG INSULIN (NovoLOG) PER UNIT SC SCH (08:25)
[2016-10-03] MEDS: AMITRIPTYLINE 50 MG TAB PO SCH (08:25)
[2016-10-03] MEDS: SUCRALFATE 1 GM TAB PO SCH (08:26)
[2016-10-03] MEDS: AZELASTINE 137MCG NASAL SPY 30 ML (ASTELIN) SCH (08:26)
[2016-10-03] MEDS ORDERED: SODIUM CHLORIDE 0.9% INJ 10 ML SYR IV PRN (10:45)
[2016-10-04] MEDS ORDERED: SODIUM CHLORIDE 0.9% INJ 10 ML SYR IV SCH (09:00)
--- NOTE | 2016-10-05 04:02 | DSES ---
DATE OF ADMISSION: 10/01/2016 DATE OF DISCHARGE: 10/03/2016 ADMISSION DIAGNOSIS: Small bowel obstruction. DISCHARGE DIAGNOSIS: Small bowel obstruction. HOSPITAL COURSE: The patient is 56-year-old female well known to our service. She presented with abdominal distention, nausea and vomiting and had a CT scan in the emergency room which showed dilated loops of small bowel consistent with ileus versus partial bowel obstruction. Recommendation was to admit to me. I admitted her, gave her a nasogastric (NG) tube and intravenous (IV) fluids. She had minimal output of her NG tube the first day and also had two large outputs from her ostomy; however, abdomen was still extremely distended. Her NG tube was clamped and she was started on clear liquid diet, which she tolerated well and continued to have output from her ostomy. By the morning of 10/03/2016, she was still having continuous output from her ostomy, tolerated overnight without the NG tube in place and continued to tolerate a regular diet. She was discharged home in the morning of 10/03/2016, and will followup with Dr. Campuzano in the office as needed for any further outpatient issues.
[2016-10-10] MEDS ORDERED: KEFL500C7 PO (18:05)
== END 2016-10-03 10:59 | disposition home health service (06) | DRG 247 ==
LOC: EDBD 21:11 → M ED 21:41 → M ED INP 10-01 02:16 → M MSPAV 10-01 03:15
PROVIDERS: ADMIT Surgery; ATTEND Surgery
DX: K56.7 Ileus, unspecified (principal); E11.9 Type 2 diabetes mellitus without complications; E78.5 Hyperlipidemia, unspecified; K21.9 Gastro-esophageal reflux disease without esophagitis; J30.9 Allergic rhinitis, unspecified; Z93.3 Colostomy status; Z90.710 Acquired absence of both cervix and uterus; Z90.49 Acquired absence of other specified parts of digestive tract; Z96.9 Presence of functional implant, unspecified; Z79.899 Other long term (current) drug therapy; Z79.4 Long term (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; K56.60 Unspecified intestinal obstruction

== ENCOUNTER 2016-10-09 07:48 | Outpatient (CLI) | payer OTHER ==
[~2016-10-09] VITALS: Ht 170.2 cm; Wt 77.1 kg
[~2016-10-09 07:48] MED LIST changes: -ASPI81TA13 PO; +ASPI81TA24 PO; +CALALOT TOP; -CALALOT3 TOP; +CETI10TA PO; +CITR1SOL PO; -COLA100C3 PO; +COLA100C5 PO; -DILA2TAB2 PO; +DILA2TAB6 PO; -DILA4TAB PO; +DILA4TAB13 PO; -GAS125CH PO; -LEVA750T PO; +LEVA750T7 PO; -LIDO5DIS36 TD; +LIDO5DIS41 TD; -METF1000 PO; +METF10004 PO; -METF500T PO; +METF500T13 PO; +MIRA33504 PO; +NOVO1INJ4 SC; -NOVO70IN SC; -ONDA1TAB16 PO; +ONDA8TAB7 PO; -PROA1AER IN; +PROAAER10 IN; +SIME80TA PO; +[UNRECOGNIZED DRUG - CODE] PO
[2016-10-09] MEDS ORDERED: ONDANSETRON 4MG/2ML VIAL (J2405) IV ONE (08:15)
[2016-10-09] MEDS ORDERED: MAGNESIUM SULFATE 1 GM/100 ML D5W BAG (10MG/ML) (J3475) IV SCH (08:30)
[2016-10-09] MEDS ORDERED: SODIUM CHLORIDE 0.9% INJ 10 ML SYR IV SCH (09:00)
[2016-10-10] MEDS ORDERED: KEFL500C17 PO (18:05)
[2016-10-10] MEDS ORDERED: CEPH500C PO (21:12)
== END 2016-10-09 08:45 | disposition home or self-care (01) ==
LOC: M INFU 07:48
PROVIDERS: ATTEND Family Medicine
DX: E83.42 Hypomagnesemia (principal); Z88.8 Allergy status to other drugs, medicaments and biological substances; Z88.5 Allergy status to narcotic agent; Z88.1 Allergy status to other antibiotic agents; Z88.0 Allergy status to penicillin; Z91.018 Allergy to other foods; Z91.048 Other nonmedicinal substance allergy status; Z91.02 Food additives allergy status; Z79.899 Other long term (current) drug therapy; Z79.4 Long term (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

== ENCOUNTER 2016-10-10 17:50 | Emergency (ER) | payer OTHER ==
[~2016-10-10] VITALS: Ht 170.2 cm; Wt 75.9 kg
[2016-10-10] MEDS ORDERED: KEFL500C17 PO (18:05)
[2016-10-10] MEDS ORDERED: NS 1,000 ML IV SCH (18:37)
--- NOTE | 2016-10-10 20:05 | REP ---
Clinical: Abdominal pain and distension. Comparison: 10/01/2016. Findings: Lung bases demonstrate chronic interstitial changes. Liver, spleen, pancreas, bilateral adrenal glands and kidneys are normal. The patient is status post cholecystectomy. The enteric system demonstrates ostomy via the left anterior abdominal wall. There is no evidence for bowel obstruction or obvious acute inflammatory process. Anterior ventral hernia repair noted. Pelvis demonstrates normal bladder and evidence for prior hysterectomy. No free air. No ascites. No obvious adenopathy. Abdominal aorta without aneurysm. Musculoskeletal structures demonstrate age-related changes without focal osseous abnormality. Impression: 1. No acute abdominopelvic pathology appreciated. 2. Ostomy in the area of the left anterior abdominal wall with the underlying bowel appear normal caliber and without acute process. 3. No ascites. Signed by Darius Roth MD 10/10/2016 07:56 P
[2016-10-10 20:06] LABS: BASO % 0.5 % (0.0-1.0); EOS # 0.1 K/mm3 (0.0-0.50); EOS % 1.8 % (0.0-3.0); LARGE UNSTAINED CELL # 0.1 K/mm3 (0.0-0.4); LARGE UNSTAINED CELL % 1.9 % (0.0-4.0); LYMPH # 1.7 K/mm3 (1.5-4.5); LYMPH % 25.9 % (24.0-44.0); MEAN CORPUSCULAR HGB CONC 32.4 g/dl (32.0-36.5); MEAN CORPUSCULAR VOLUME 98.9 fl (80.0-96.0); MONO # 0.3 K/mm3 (0.0-0.8); MONO % 5.3 % (0.0-5.0); NEUTROPHILS % 64.7 % (36.0-66.0); PLATELET COUNT, AUTOMATED 313 k/mm3 (150-450); RED CELL DISTRIBUTION WIDTH 14.7 % (11.5-14.5); WHITE BLOOD COUNT 6.1 K/mm3 (4.0-10.0)
--- NOTE | 2016-10-10 20:11 | REP ---
Clinical: Acute abdominal pain. Comparison: 09/30/2016. Technique: Upright view of the chest with supine and upright views of the abdomen and pelvis. Findings: Frontal upright view of the chest demonstrates no acute cardiopulmonary process or free air below the diaphragm to suspect pneumoperitoneum. Bkqkjw-Y-Kmad with tip in the SVC/right atrium. Epidural stimulator at the lower thoracic level. Supine and upright views of the abdomen and pelvis demonstrate nonspecific bowel gas pattern without obstruction or perforation. No organomegaly. No abnormal calcifications. Skeletal structures normal for age. Postsurgical changes involving the abdomen suggesting ventral hernia repair and ostomy. Impression: Nonspecific bowel gas pattern. Postsurgical changes. Signed by Darius Roth MD 10/10/2016 08:03 P
[2016-10-10 20:15] LABS: INR 0.95
[2016-10-10] MEDS ORDERED: METOCLOPRAMIDE INJ 10MG/2ML VIAL (J2765) IV ONE (20:15)
[2016-10-10] MEDS ORDERED: HYDROmorphone HCL 1 MG/ML SYRINGE (J1170) IV ONE (20:15)
[2016-10-10 20:25] LABS: ALBUMIN 3.1 GM/DL (3.2-5.2); ALBUMIN/GLOBULIN RATIO 0.66 (1.00-1.93); ALKALINE PHOSPHATASE 119 U/L (45-117); ALT/SGPT 24 U/L (12-78); ANION GAP 7 MEQ/L (8-16); AST/SGOT 13 U/L (15-37); BILIRUBIN,DIRECT < 0.1 MG/DL (0.0-0.2); BILIRUBIN,TOTAL 0.1 MG/DL (0.2-1.0); BLOOD UREA NITROGEN 20 MG/DL (7-18); CALCIUM LEVEL 9.9 MG/DL (8.5-10.1); CARBON DIOXIDE LEVEL 28 MEQ/L (21-32); CHLORIDE LEVEL 102 MEQ/L (98-107); CREATININE FOR GFR 0.85 MG/DL (0.55-1.02); GLOMERULAR FILTRATION RATE > 60.0 (>51); GLUCOSE, FASTING 400 MG/DL (70-105); POTASSIUM SERUM 3.9 MEQ/L (3.5-5.1); SODIUM LEVEL 137 MEQ/L (136-145); TOTAL PROTEIN 7.8 GM/DL (6.4-8.2)
[2016-10-10] MEDS ORDERED: CEPH500C PO (21:12)
[2016-10-10 21:20] VITALS: BP 136/67
== END 2016-10-10 21:52 | disposition home or self-care (01) ==
LOC: M ED 17:50
DX: R10.9 Unspecified abdominal pain (principal); G89.29 Other chronic pain; R14.0 Abdominal distension (gaseous); E11.9 Type 2 diabetes mellitus without complications; E78.5 Hyperlipidemia, unspecified; Z79.4 Long term (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; Z88.8 Allergy status to other drugs, medicaments and biological substances; Z88.5 Allergy status to narcotic agent; Z88.1 Allergy status to other antibiotic agents; Z91.040 Latex allergy status; Z88.2 Allergy status to sulfonamides; Z91.018 Allergy to other foods; L23.1 Allergic contact dermatitis due to adhesives; Z79.899 Other long term (current) drug therapy; Z79.51 Long term (current) use of inhaled steroids; Z79.2 Long term (current) use of antibiotics; Z98.0 Intestinal bypass and anastomosis status

== ENCOUNTER 2016-10-11 07:10 | Outpatient (CLI) | payer OTHER ==
[~2016-10-11] VITALS: Ht 170.2 cm; Wt 77.1 kg
[~2016-10-11 07:10] MED LIST changes: +CEPH500C PO; +KEFL500C17 PO; +MAGNESIUM SULFATE 1 GM/100 ML D5W BAG (10MG/ML) (J3475) IV SCH; +ONDANSETRON 4MG/2ML VIAL (J2405) IV ONE
[2016-10-11] MEDS ORDERED: SODIUM CHLORIDE 0.9% INJ 10 ML SYR IV SCH (09:00)
== END 2016-10-11 10:00 | disposition home or self-care (01) ==
LOC: M INFU 07:10
PROVIDERS: ATTEND Family Medicine
DX: E83.42 Hypomagnesemia (principal); Z88.5 Allergy status to narcotic agent; Z88.8 Allergy status to other drugs, medicaments and biological substances; Z88.1 Allergy status to other antibiotic agents; Z88.0 Allergy status to penicillin; Z91.048 Other nonmedicinal substance allergy status; Z91.018 Allergy to other foods; Z91.02 Food additives allergy status; Z79.899 Other long term (current) drug therapy; Z79.4 Long term (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

== ENCOUNTER 2016-10-16 07:07 | Outpatient (CLI) | payer OTHER ==
[~2016-10-16 07:07] MED LIST changes: -MAGNESIUM SULFATE 1 GM/100 ML D5W BAG (10MG/ML) (J3475) IV SCH
[2016-10-16] MEDS ORDERED: SODIUM CHLORIDE 0.9% INJ 10 ML SYR IV SCH (09:00)
== END 2016-10-16 08:00 | disposition home or self-care (01) ==
LOC: M INFU 07:07
PROVIDERS: ATTEND Family Medicine
DX: E83.42 Hypomagnesemia (principal); Z88.8 Allergy status to other drugs, medicaments and biological substances; Z88.5 Allergy status to narcotic agent; Z88.1 Allergy status to other antibiotic agents; Z88.0 Allergy status to penicillin; Z91.018 Allergy to other foods; Z91.048 Other nonmedicinal substance allergy status; Z91.02 Food additives allergy status; Z79.4 Long term (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; Z79.899 Other long term (current) drug therapy

== ENCOUNTER 2016-10-16 13:35 | Emergency (ER) | payer OTHER ==
[~2016-10-16 13:35] MED LIST changes: -ONDANSETRON 4MG/2ML VIAL (J2405) IV ONE; +SODIUM CHLORIDE 0.9% INJ 10 ML SYR IV SCH
[2016-10-16] MEDS ORDERED: NS 1,000 ML IV SCH (14:59)
[2016-10-16] MEDS ORDERED: ONDANSETRON 4MG/2ML VIAL (J2405) IV ONE (15:00)
--- NOTE | 2016-10-16 15:36 | REP ---
Clinical: abdominal pain. Technique: Upright view of the chest with supine and upright views of the abdomen and pelvis. Findings: Frontal upright view of the chest demonstrates no acute cardiopulmonary process or free air below the diaphragm to suspect pneumoperitoneum. Qntrpr-P-[id number] and thoracic stimulator in stable position. Supine and upright views of the abdomen and pelvis demonstrate postsurgical changes and nonspecific bowel gas pattern without obstruction or perforation. No organomegaly. No abnormal calcifications. Skeletal structures normal for age. Impression: Nonspecific bowel gas pattern. Signed by Darius Roth MD 10/16/2016 03:28 P
[2016-10-16] MEDS: HYDROmorphone HCL 1 MG/ML SYRINGE (J1170) IV PRN ×2 (17:04→18:02)
[2016-10-16 17:09] LABS: BASO % 0.7 % (0.0-1.0); EOS # 0.1 K/mm3 (0.0-0.50); EOS % 1.6 % (0.0-3.0); LARGE UNSTAINED CELL # 0.2 K/mm3 (0.0-0.4); LARGE UNSTAINED CELL % 2.6 % (0.0-4.0); LYMPH # 1.8 K/mm3 (1.5-4.5); LYMPH % 29.2 % (24.0-44.0); MEAN CORPUSCULAR HEMOGLOBIN 31.9 pg (27.0-33.0); MEAN CORPUSCULAR HGB CONC 32.4 g/dl (32.0-36.5); MEAN CORPUSCULAR VOLUME 98.5 fl (80.0-96.0); MONO # 0.4 K/mm3 (0.0-0.8); MONO % 6.8 % (0.0-5.0); NEUTROPHILS # 3.6 K/mm3 (1.8-7.7); NEUTROPHILS % 59.1 % (36.0-66.0); PLATELET COUNT, AUTOMATED 310 k/mm3 (150-450); RED CELL DISTRIBUTION WIDTH 14.3 % (11.5-14.5)
[2016-10-16 17:34] LABS: ALBUMIN 3.5 GM/DL (3.2-5.2); ALBUMIN/GLOBULIN RATIO 0.83 (1.00-1.93); ALKALINE PHOSPHATASE 113 U/L (45-117); ALT/SGPT 25 U/L (12-78); ANION GAP 8 MEQ/L (8-16); AST/SGOT 16 U/L (15-37); BILIRUBIN,DIRECT < 0.1 MG/DL (0.0-0.2); BILIRUBIN,TOTAL 0.2 MG/DL (0.2-1.0); BLOOD UREA NITROGEN 20 MG/DL (7-18); CALCIUM LEVEL 10.1 MG/DL (8.5-10.1); CARBON DIOXIDE LEVEL 27 MEQ/L (21-32); CHLORIDE LEVEL 103 MEQ/L (98-107); CREATININE FOR GFR 0.58 MG/DL (0.55-1.02); GLOMERULAR FILTRATION RATE > 60.0 (>51); GLUCOSE, FASTING 162 MG/DL (70-105); SODIUM LEVEL 138 MEQ/L (136-145); TOTAL PROTEIN 7.7 GM/DL (6.4-8.2)
[2016-10-16 18:40] VITALS: BP 133/78
== END 2016-10-16 18:42 | disposition home or self-care (01) ==
LOC: EDBD 13:35 → M ED 13:35
DX: R10.9 Unspecified abdominal pain (principal); I51.9 Heart disease, unspecified; J45.909 Unspecified asthma, uncomplicated; Z88.8 Allergy status to other drugs, medicaments and biological substances; Z88.5 Allergy status to narcotic agent; Z88.1 Allergy status to other antibiotic agents; Z91.02 Food additives allergy status; Z91.040 Latex allergy status; Z88.2 Allergy status to sulfonamides; Z91.018 Allergy to other foods; L23.1 Allergic contact dermatitis due to adhesives; Z79.899 Other long term (current) drug therapy; Z79.4 Long term (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; Z79.2 Long term (current) use of antibiotics; Z79.51 Long term (current) use of inhaled steroids; Z96.89 Presence of other specified functional implants

== ENCOUNTER 2016-10-16 22:23 | Emergency (ER) | payer OTHER ==
[~2016-10-16] VITALS: Ht 170.2 cm; Wt 75.5 kg
[~2016-10-16 22:23] MED LIST changes: -SODIUM CHLORIDE 0.9% INJ 10 ML SYR IV SCH
[2016-10-17] MEDS ORDERED: HYDROmorphone HCL 1 MG/ML SYRINGE (J1170) IV ONE
[2016-10-17] MEDS ORDERED: ONDANSETRON 4MG/2ML VIAL (J2405) IV ONE
[2016-10-17 00:28] LABS: BASO % 0.6 % (0.0-1.0); EOS # 0.1 K/mm3 (0.0-0.50); EOS % 1.6 % (0.0-3.0); LARGE UNSTAINED CELL # 0.1 K/mm3 (0.0-0.4); LARGE UNSTAINED CELL % 1.6 % (0.0-4.0); LYMPH # 1.3 K/mm3 (1.5-4.5); LYMPH % 18.3 % (24.0-44.0); MEAN CORPUSCULAR HEMOGLOBIN 31.6 pg (27.0-33.0); MEAN CORPUSCULAR VOLUME 98.8 fl (80.0-96.0); MONO # 0.3 K/mm3 (0.0-0.8); MONO % 4.7 % (0.0-5.0); NEUTROPHILS % 73.2 % (36.0-66.0); PLATELET COUNT, AUTOMATED 291 k/mm3 (150-450); RED CELL DISTRIBUTION WIDTH 14.4 % (11.5-14.5); WHITE BLOOD COUNT 6.9 K/mm3 (4.0-10.0)
[2016-10-17 00:45] LABS: ALBUMIN 3.2 GM/DL (3.2-5.2); ALBUMIN/GLOBULIN RATIO 0.71 (1.00-1.93); ALKALINE PHOSPHATASE 103 U/L (45-117); ALT/SGPT 23 U/L (12-78); ANION GAP 6 MEQ/L (8-16); AST/SGOT 15 U/L (15-37); BILIRUBIN,DIRECT < 0.1 MG/DL (0.0-0.2); BILIRUBIN,TOTAL 0.2 MG/DL (0.2-1.0); BLOOD UREA NITROGEN 19 MG/DL (7-18); CALCIUM LEVEL 9.8 MG/DL (8.5-10.1); CARBON DIOXIDE LEVEL 29 MEQ/L (21-32); CHLORIDE LEVEL 101 MEQ/L (98-107); CREATININE FOR GFR 0.64 MG/DL (0.55-1.02); GLOMERULAR FILTRATION RATE > 60.0 (>51); GLUCOSE, FASTING 262 MG/DL (70-105); POTASSIUM SERUM 4.1 MEQ/L (3.5-5.1); SODIUM LEVEL 136 MEQ/L (136-145); TOTAL PROTEIN 7.7 GM/DL (6.4-8.2)
[2016-10-17 02:25] VITALS: BP 132/81
== END 2016-10-17 02:58 | disposition home or self-care (01) ==
LOC: M ED 22:23
DX: R10.9 Unspecified abdominal pain (principal); Z98.0 Intestinal bypass and anastomosis status; E11.9 Type 2 diabetes mellitus without complications; J45.909 Unspecified asthma, uncomplicated; G90.523 Complex regional pain syndrome I of lower limb, bilateral

== ENCOUNTER 2016-10-18 07:06 | Outpatient (CLI) | payer OTHER ==
[~2016-10-18 07:06] MED LIST changes: +ONDANSETRON 4MG/2ML VIAL (J2405) IV ONE
[2016-10-18] MEDS ORDERED: MAGNESIUM SULFATE 1 GM/100 ML D5W BAG (10MG/ML) (J3475) IV SCH ×2 (07:30→08:30)
[2016-10-18] MEDS ORDERED: SODIUM CHLORIDE 0.9% INJ 10 ML SYR IV SCH (09:00)
== END 2016-10-18 09:45 | disposition home or self-care (01) ==
LOC: M INFU 07:06
PROVIDERS: ATTEND Family Medicine
DX: E83.42 Hypomagnesemia (principal); Z88.0 Allergy status to penicillin; Z88.1 Allergy status to other antibiotic agents; Z88.5 Allergy status to narcotic agent; Z88.8 Allergy status to other drugs, medicaments and biological substances; Z91.018 Allergy to other foods; Z91.048 Other nonmedicinal substance allergy status; Z91.02 Food additives allergy status; Z79.4 Long term (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; Z79.899 Other long term (current) drug therapy

== ENCOUNTER 2016-10-23 07:47 | Outpatient (CLI) | payer OTHER ==
[~2016-10-23] VITALS: Ht 170.2 cm; Wt 77.1 kg
[~2016-10-23 07:47] MED LIST changes: +SODIUM CHLORIDE 0.9% INJ 10 ML SYR IV SCH
== END 2016-10-23 08:30 | disposition home or self-care (01) ==
LOC: M INFU 07:47
PROVIDERS: ATTEND Family Medicine
DX: E83.42 Hypomagnesemia (principal); Z88.8 Allergy status to other drugs, medicaments and biological substances; Z88.5 Allergy status to narcotic agent; Z88.1 Allergy status to other antibiotic agents; Z88.0 Allergy status to penicillin; Z91.02 Food additives allergy status; Z91.048 Other nonmedicinal substance allergy status; Z79.4 Long term (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; Z91.018 Allergy to other foods; Z79.899 Other long term (current) drug therapy

== ENCOUNTER 2016-10-25 07:16 | Outpatient (CLI) | payer OTHER ==
[~2016-10-25] VITALS: Ht 170.2 cm; Wt 77.1 kg
[~2016-10-25 07:16] MED LIST changes: -ONDANSETRON 4MG/2ML VIAL (J2405) IV ONE; -SODIUM CHLORIDE 0.9% INJ 10 ML SYR IV SCH
[2016-10-25] MEDS ORDERED: ONDANSETRON 4MG/2ML VIAL (J2405) IV ONE (07:30)
[2016-10-25] MEDS ORDERED: MAG SULF 1GM/100ML (MAG RUN) 100 ML IV SCH (08:00)
[2016-10-25] MEDS ORDERED: MAG SULF 1GM/100ML (MAG RUN) 100 ML IV ONE ×2 (08:00→09:00)
[2016-10-25] MEDS ORDERED: SODIUM CHLORIDE 0.9% INJ 10 ML SYR IV SCH (09:00)
== END 2016-10-25 10:15 | disposition home or self-care (01) ==
LOC: M INFU 07:16
PROVIDERS: ATTEND Family Medicine
DX: E83.42 Hypomagnesemia (principal); Z88.8 Allergy status to other drugs, medicaments and biological substances; Z88.5 Allergy status to narcotic agent; Z88.1 Allergy status to other antibiotic agents; Z88.0 Allergy status to penicillin; Z91.02 Food additives allergy status; Z91.048 Other nonmedicinal substance allergy status; Z91.018 Allergy to other foods; Z79.4 Long term (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; Z79.899 Other long term (current) drug therapy

== ENCOUNTER → 2016-10-28 | Outpatient (CLI) | payer OTHER ==
[~2016-10-28] MED LIST changes: +GOLYLQ PO; +MAGN400C3 PO; +SIME180C PO; +ZOFR4TAB3 PO
--- NOTE | 2016-11-18 00:26 | ECWPNPC ---
PATIENT NAME: GLENN FELDER : 1960 GENDER: FEMALE VISIT DATE: 10/28/2016 DISCHARGE DATE: 10/28/16 1003 VISIT LOCKED DATE TIME: PHYSICIAN: JENNA FORDE PHYSICIAN PAGER NO: TEXT TO [phone] RESOURCE: JENNA FORDE REASON FOR APPOINTMENT 1. NECK/OCCIPITAL PAIN HISTORY OF PRESENT ILLNESS HISTORY OF PRESENT ILLNESS: PAIN THE PATIENT DESCRIBES THE PAIN... FALL RISK SCREENING: SCREENING :NO FALLS IN THE PAST YEAR TODAY'S VISIT: NOTES: RATES PAIN TODAY 3/10. IS HAVING SOME DISCOMFORT AT BACK OF HEAD. . CURRENT MEDICATIONS TAKING MAY HAVE SAVAGE WAFERS NEW IMAGE SKIN BARRIERS FLATING FLANGES ICD: V55.3 (03694 2 1/2 CHANGE NEEDED (EDUARD), NOTES: CURRENTLY WEARING TAKING BABY WIPES 1 MISCELLANEOUS DIRECTED TOPICALLY PRN DX:569.62 TAKING ROGAINE EXTRA STRENGTH FOR MEN 5 % SOLUTION 1 DROP TO AFFECTED AREA EXTERNALLY TWICE A DAY TAKING MAY SAVAGE BAGS CLEAR VELCRO CLOSER ([id number]) ICD:V55.3 CHANGE NEEDED (EDUARD) TAKING PAPER TAPE 1"X12YD 1 TAPE DIRECTED TOPICALLY DX: 078.10 QID PRN BANDAGE CHANGE TAKING GAUZE STRETCH BANDAGE 2X75 ROLL DIRECTED TOIPICALLY DX:078.10 QID PRN TAKING ADHESIVE TAPE 1 TAPE - TOPICALLY DAILY TAKING GAUZE BANDAGE 2" 1 EACH - TOPICALLY TO RIGHT FINGERS DAILY TAKING COMPRESSION STOCKINGS 20/30 STOCKINGS 724.4 THIGH HIGHS DAILY TAKING GLUCERNA 1.0 CARLOS/FIBER 1 CAN - ORALLY 5 TIMES A DAY TAKING ONETOUCH ULTRA II TEST STRIPS TEST STRIP ULTRA MINI STRIP 1 ASDIR FOUR TIMES DAILY/DX:250.02 TAKING MAGNESIUM _ _ INFUSION INFUSION ONCE WEEKLY TAKING NORMAL SALINE FLUSH 0.9 % SOLUTION 1000CC INFUSED OVER 4 HOURS, WITH 1 GM MAGNESIUM SULFATE INTRAVENOUS DAILY TAKING ONE TOUCH ULTRA 2 LANCET 1 LANCET LANCET ICD:250.02 IDDM FOUR TIMES DAILY TAKING SYMBICORT 160-4.5 MCG/ACT AEROSOL 2 PUFFS INHALATION TWICE A DAY TAKING ZOCOR 20 20MG TABLET 1 TAB(S) ORAL AT BEDTIME TAKING NEEDLE (DISP) 30G X 1 MISCELLANEOUS 250.0 FOR LEVEMIR PEN VITRO DAILY TAKING HEPARIN SODIUM (PORCINE) 5000 UNIT/ML SOLUTION INJECTION ONCE DAILY ON WEDNESDAYS AND FRIDAYS TAKING SYRINGE/NEEDLE (DISP) 1CC DIABETIC 1 SQ FOUR TIMES DAILY/DX:E11.9 IDDM TAKING LAC-HYDRIN 12 % LOTION 1 APPLICATION TO AFFECTED AREA EXTERNALLY TWICE A DAY TAKING ONE TOUCH ULTRA SYSTEM KIT METER DIRECTED ONE TOUCH ULTRA MINI-METER ONLY DX: E11.9, E11.21, E11.22, E11.65 TAKING PEDIALYTE BOTTLE SOLUTION 1 BOTTLE ORALLY DAILY TAKING ONETOUCH LANCETS DELICA LANCET 1 SC 4 TIMES A DAY/DX:E11.90 IDDM TAKING MAGNESIUM OXIDE 400 MG TABLET DIRECTED ORALLY TID TAKING SIMETHICONE 125 MG TABLET CHEWABLE 1 TABLET NEEDED ORALLY FOUR TIMES A DAY PRN ABDOMINAL DISTENTION OR PAIN TAKING ALCOHOL PREPS _ WIPE DX: E11.9 TOPICAL 5 TIMES A DAY NEEDED FOR INJECTIONS TAKING ONE TOUCH ULTRA 2 STRIPS 1 STRIPS 1 STRIP SUBCUTANEOUSLY FOUR TIMES DAILY/DX: E11. TAKING CETIRIZINE HCL 10 MG TABLET 1 TABLET NEEDED ORALLY ONCE A DAY TAKING NASACORT AQ 55 MCG/ACT AEROSOL SOLUTION 1 PUFF IN EACH NOSTRIL NASALLY ONCE A DAY TAKING ASTELIN 137 MCG/SPRAY SOLUTION 1 PUFF IN EACH NOSTRIL NASALLY TWICE A DAY TAKING TIZANIDINE HCL 2 MG TABLET 1/2 TABLET ORALLY TWICE A DAY TAKING A & D ZINC OXIDE - CREAM APPLY TO PERINEAL AREA AFTER EACH BM EXTERNALLY DIRECTED TAKING ZOFRAN 4 MG/2ML SOLUTION 2 OR 4 ML IM (MEDICALLY NECESSARY) ONCE A DAY TAKING RANITIDINE HCL 150 MG TABLET 1 TABLET ORALLY TWICE A DAY TAKING SYRINGE 25G X 1 MISCELLANEOUS DIRECTED INTRAMUSCULAR ONCE DAILY; ICD:R11.0 TAKING NOVOLOG MIX 70/30 (70-30) 100 UNIT/ML SUSPENSION 25 UNITS SUBCUTANEOUS DAILY AT THE MIDDAY MEAL TAKING LACTULOSE 20 GM/30ML SOLUTION 15 ML ORALLY THREE TIMES DAILY TAKING BD SYRINGE/NEEDLE 23G X 1 MISCELLANEOUS 1 SYRINGE INTRAMUSCULARLY TWICE DAILY DX:R11.0 TAKING HYDROMORPHONE HCL 4 MG TABLET 1/2 -1 TABLET ORALLY EVERY 4 HRS PRN PAIN MDD=5 TAKING LOPID 600 MG TABLET 1 TABLET ORALLY DAILY TAKING CARAFATE 1 GM TABLET 1 TABLET ON AN EMPTY STOMACH ORALLY FOUR TIMES DAILY TAKING AMITRIPTYLINE HCL 50 MG TABLET DIRECTED ORALLY 1 TAB IN AM AND 3 TABS AT BEDTIME TAKING KLOR-CON M20 20 MEQ TABLET EXTENDED RELEASE 1 TABLET ORALLY ONCE A DAY TAKING TOUJEO SOLOSTAR PENS 450 U/1.5ML PREFILLED PENS 40 UNITS SQ QAM TAKING MIRALAX 1 SUSPENSION 17 GRAMS ORALLY THREE TIMES DAILY TAKING REGLAN 10 MG TABLET 1 TABLET 30 MINUTES BEFORE MEALS AND AT BEDTIME NEEDED ORALLY FOUR TIMES A DAY TAKING BD PEN NEEDLE ULTRAFINE 29G X 12.7MM MISCELLANEOUS DIRECTED TOPICALLY DAILY NOT-TAKING CEFDINIR 300 MG CAPSULE 1 CAPSULE ORALLY EVERY 12 HRS NOT-TAKING BENZONATATE 200 MG CAPSULE 1 CAPSULE ORALLY THREE TIMES A DAY NEEDED FOR COUGH NOT-TAKING PREDNISONE 20 MG TABLET 2 TABS WITH FOOD ORALLY ONCE A DAY NOT-TAKING LIDOCAINE 5 % OINTMENT 1 APPLICATION TO AFFECTED AREA NEEDED EXTERNALLY THREE TIMES A DAY TO BACK OF HEAD/NECK PRN PAIN, NOTES: 02/11/16 NOT-TAKING PREDNISONE 20 MG TABLET 3 TABLET ORALLY ONCE A DAY FOR 5 DAYS NOT-TAKING DOXYCYCLINE HYCLATE 100 MG CAPSULE 1 CAPSULE ORALLY EVERY 12 HRS, NOTES: LAST DOSE 02/12/2016 NOT-TAKING DOXYCYCLINE MONOHYDRATE 100 MG TABLET 1 TABLET ORALLY EVERY 12 HRS NOT-TAKING MILK OF MAGNESIA 7.75 % SUSPENSION 5 ML NEEDED ORALLY TWICE DAILY, NOTES: 12-25-151999 NOT-TAKING NYSTATIN POWDER 680643 UNIT/GM POWDER DIRECTED EXTERNALLY TWICE A DAY TO SKIN SURROUNDING STOMA INTIL HEALED, NOTES: NONE NOT-TAKING BENADRYL ALLERGY 25 MG TABLET 1 TABLET NEEDED ORALLY EVERY 6 HRS NOT-TAKING KETOTIFEN FUMARATE 0.025 % SOLUTION 1 DROP INTO AFFECTED EYE OPHTHALMIC TWICE A DAY MEDICATION LIST REVIEWED AND RECONCILED WITH THE PATIENT PAST MEDICAL HISTORY DM II WITH NEUROPATHY ASTHMA HYPERLIPIDEMIA GERD NEPHROLITHIASIS ALLERGIC RHINITIS CHRONIC MAXILLARY SINUSITIS CHRONIC HEADACHES (PAIN MANAGEMENT) CHRONIC PAIN SYNDROME/RSD (PAIN MANAGEMENT) PERSONAL HISTORY OF VENOUS THROMBOSIS AND EMBOLISM (RESOLVED 12/19/2009) H/O MULTIPLE ABDOMINAL SURGERIES ALLERGIES IODINE: NERVES, TIGHT MUSCLES: SIDE EFFECTS GABAPENTIN: NERVOUS SYSTEM,SHAKEY: SIDE EFFECTS GABITRIL: NERVOUS: SIDE EFFECTS KETOROLAC TROMETHAMINE: VOMITING: SIDE EFFECTS MEPERIDINE HCL: OUT OF BODY EXPERIENCE: SIDE EFFECTS MORPHINE SULFATE: SEVERE H/A WITH BIG DOSE: SIDE EFFECTS PROMETHAZINE HCL: OUT OF BODY EXPERIENCE: SIDE EFFECTS TRAMADOL: SHAKES: SIDE EFFECTS OXYCODONE: VOMITING,HIVES: ALLERGY PENICILLIN (FOR ALLERGIES USE ONLY): HIVES: ALLERGY FENTANYL: NERVOUS: SIDE EFFECTS DROPERIDOL: OUT OF BODY: SIDE EFFECTS CODEINE SULFATE: OUT OF BODY EXPERIENCE: SIDE EFFECTS PHENOTHIAZINES: NERVOUS SYSTEM: SIDE EFFECTS QUINOLONES- CIPRO,TEQUIN: HIVES: ALLERGY RED FOOD DYE: RASH: ALLERGY LIDODERM (LICOCANINE): HEART RACES: SIDE EFFECTS SULFA: HIVES: ALLERGY ASPIRIN: HIVES: ALLERGY ATIVAN: HALLUCINATIONS: SIDE EFFECTS AZITHROMYCIN: HIVES: ALLERGY BACLOFEN: AFFECTED NERVOUS SYT: SIDE EFFECTS LYRICA: SHAKES, EVERYTHING IS BLACK: SIDE EFFECTS VICODIN: CONFUSION: SIDE EFFECTS MACROBID: HIVES, BLURRED VISION: ALLERGY READI-CAT: HIVES: ALLERGY ALBUTEROL SULFATE: COUGH: ALLERGY GASTROGRAFIN: ONLY 1 BOTTLE PER TEST DAY (CAN NOT TOLERATE ANY MORE THAN 1 BOTTLE): CONTRAINDICATION LATEX (FOR ALLERGY USE ONLY): DIFFICULTY : ALLERGY REVIEW OF SYSTEMS FOLLOW-UP ROS: GASTROENTEROLOGY: 2 ADMISSIONS SINCE LAST VISIT FOR BOWEL OBSTRUCTION . REVIEWED BY: PROVIDER: . CONSTITUTIONAL: ANY CHANGE IN YOUR MEDICAL CONDITION? NO . CHILLS NO . FEVER NO . INFECTION: DO YOU HAVE NEW INFECTIONS? NO . DO YOU HAVE HISTORY OF MRSA? NO . MUSCULOSKELETAL: ANY NEW PATTERNS OF PAIN OR NUMBNESS? NO . GASTROENTEROLOGY: ANY NEW CHANGE IN BOWEL CONTROL? NO . GENITOURINARY: ANY NEW CHANGE IN BLADDER CONTROL? NO . IS THERE A CHANCE YOU COULD BE ? NO . HEMATOLOGY/LYMPH: DO YOU TAKE ANY BLOOD THINNERS? (FOR EXAMPLE- COUMADIN, PLAVIX, AGGRENOX, PLATEL, PRADAXA, OR XARELTO) NO . WHEN WAS YOUR LAST DOSE? DATE: TIME: . NEUROLOGY: HAVE YOU FALLEN IN THE PAST 6 MONTHS? NO . ANY NEW EXTREMITY NUMBNESS OR WEAKNESS? NO . CARDIOLOGY: DO YOU HAVE A PACEMAKER OR DEFIBRILLATOR? NO . RESPIRATORY: HAVE YOU BEEN SICK IN THE PAST WEEK? NO . FEVER NO . FLU LIKE SYMPTOMS? NO . COUGH NO . INTEGUMENTARY: DO YOU HAVE ANY RASHES OR OPEN SORES? NO . ALLERGIC/IMMUNO: ANY NEW ALLERGIES? NO . PSYCHIATRIC: DO YOU HAVE THOUGHTS OF HURTING YOURSELF OR SOMEONE ELSE? NO . ARE YOU ABUSED, NEGLECTED, OR IN AN UNSAFE ENVIRONMENT? NO . ENDOCRINOLOGY: ARE YOU DIABETIC? YES . OTHER: DO YOU NEED ANY PRESCRIPTIONS? YES . IF YES, PLEASE LIST: TIZANIDINE, HYDROMORPHONE . ANY NEW PROBLEMS WITH YOUR MEDICATIONS? NO . WHEN DID YOU LAST EAT? ____ . WHEN DID YOU LAST DRINK? ____ . WHAT DID YOU LAST DRINK? ____ . NAME OF PERSON DRIVING YOU HOME? ____ . DO YOU HAVE ANY OTHER QUESTIONS OR CONCERNS NO . VITAL SIGNS WT 170 LBS, HT 67 IN, BMI 26.62 INDEX, BP 128/71 MM HG, HR 84 /MIN, RR 16 /MIN, TEMP 97.4 F, OXYGEN SAT % 97%, NA INITIALS SC 09:00, REVIEWED BY: CHLOÉ. EXAMINATION GENERAL EXAMINATION: HEENT:FACE FLUSHED. LUNGS:CLEAR TO AUSCULTATION BILATERALLY. NO WHEEZES. RALES OR RHONCHI. HEART:NORMAL S1S2, NO MURMURS, CLICK OR RUBS. MUSCULOSKELETAL:TRIGGER POINTS AND TIGHT FIBROUS BANDS OVER CERVICAL PARASPINOUS MUSCLES AND ACROSS TRAPEZIUS MISCLES.DRIER AND PULVERIZER TENDER STRENGTH EQUAL AND STRONG. GAIT ANTALGIC. CANE USED FOR BALANCE. 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 CALL DRUG COMPANY ABOUT EXPERIMENTAL DRUG - WHAT FURTHER INFO DO THEY NEED,TRIGGER POINT INJECTION MATERIAL WAS PRINTED. CLINICAL NOTES: ISTOP REGISTRY REVIEWED AND DEMNOSTRATES COMPLLIANCE. BRINGS IN MEDICATIONS WHICH IS APPROPRIATE FOR WHAT WAS DISPENSED. RECENT URINE TOXICOLOGY REVIEWED. NO UNAUTHORIZED MEDICATIONS. NO ILLICIT SUBSTANCES AND PRESCRIBED MEDICATIONS WERE PRESENT. PROCEDURE CODES FA211 ESTABILISHED PATIENT [facility] CHARGE DISPOSITION & COMMUNICATION FOLLOW UP AFTER INJECTION (REASON: CHECK AUTH FOR TPI) ELECTRONICALLY SIGNED BY JONATAN LANGFORD ON 11/17/2016 AT 12:35 PM EDT DISCLAIMER : THIS IS A VISIT SUMMARY EXTRACTED FROM THE [employer] CHART. IT IS NOT A COPY OF THE [employer] PROGRESS NOTE. MARLYN
== END ==
LOC: M PAIN 09:00
PROVIDERS: ATTEND Nurse Practitioner Family
DX: G89.29 Other chronic pain (principal); M54.81 Occipital neuralgia; M79.1 Myalgia; E11.9 Type 2 diabetes mellitus without complications; J45.909 Unspecified asthma, uncomplicated; E78.5 Hyperlipidemia, unspecified; K21.9 Gastro-esophageal reflux disease without esophagitis; N91.2 Amenorrhea, unspecified; Z88.5 Allergy status to narcotic agent; Z88.8 Allergy status to other drugs, medicaments and biological substances; Z88.0 Allergy status to penicillin; Z88.6 Allergy status to analgesic agent; Z91.018 Allergy to other foods; Z91.040 Latex allergy status; Z93.2 Ileostomy status; Z79.4 Long term (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; Z79.899 Other long term (current) drug therapy

== ENCOUNTER 2016-10-30 07:16 | Outpatient (CLI) | payer OTHER ==
[~2016-10-30 07:16] MED LIST changes: -GOLYLQ PO; -MAGN400C3 PO; +ONDANSETRON 4MG/2ML VIAL (J2405) IV ONE; -SIME180C PO; -ZOFR4TAB3 PO
[2016-10-30] MEDS ORDERED: SODIUM CHLORIDE 0.9% INJ 10 ML SYR IV SCH (09:00)
[2016-10-31] MEDS ORDERED: ZOCO20TA PO (13:43)
[2016-10-31] MEDS ORDERED: TOUJ1.2I SC (13:43)
[2016-10-31] MEDS ORDERED: ZOFR4TAB3 PO (13:43)
[2016-10-31] MEDS ORDERED: MAGN400C3 PO (13:43)
== END 2016-10-30 08:05 | disposition home or self-care (01) ==
LOC: M INFU 07:16
PROVIDERS: ATTEND Family Medicine
DX: E83.42 Hypomagnesemia (principal); Z88.5 Allergy status to narcotic agent; Z88.1 Allergy status to other antibiotic agents; Z88.0 Allergy status to penicillin; Z88.8 Allergy status to other drugs, medicaments and biological substances; Z91.018 Allergy to other foods; Z91.048 Other nonmedicinal substance allergy status; Z91.02 Food additives allergy status; Z79.4 Long term (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; Z79.899 Other long term (current) drug therapy

== ENCOUNTER 2016-10-31 13:27 | Emergency (ER) | payer OTHER ==
[~2016-10-31] VITALS: Ht 170.2 cm; Wt 77.3 kg
[~2016-10-31 13:27] MED LIST changes: -ONDANSETRON 4MG/2ML VIAL (J2405) IV ONE
[2016-10-31] MEDS ORDERED: ZOCO20TA PO (13:43)
[2016-10-31] MEDS ORDERED: ZOFR4TAB3 PO (13:43)
[2016-10-31] MEDS ORDERED: MAGN400C3 PO (13:43)
[2016-10-31] MEDS ORDERED: TOUJ1.2I SC (13:43)
[2016-10-31] MEDS ORDERED: NS 1,000 ML IV ONE (14:00)
[2016-10-31] MEDS ORDERED: HYDROmorphone HCL 1 MG/ML SYRINGE (J1170) IV PRN (14:00)
[2016-10-31] MEDS ORDERED: ONDANSETRON 4MG/2ML VIAL (J2405) IV ONE (14:00)
--- NOTE | 2016-10-31 14:46 | REP ---
CT of the abdomen pelvis with IV and oral contrast: Comparison is 10/10/2016. The visualized lower lung garcía demonstrate chronic parenchymal scarring and chronic pleural thickening in the left lower lobe, unchanged from 04/06/2016. The unenhanced hepatic parenchyma is homogeneous. Surgical clips in the gallbladder fossa. The pancreas and spleen are unremarkable. The adrenals, kidneys and abdominal aorta are unremarkable. There is no bowel distension. However, there is gastric distension, unchanged and also unchanged from 04/06/2016, raising the possibility of gastroparesis. The the patient has a total colectomy and there is a left lower quadrant ileostomy. This is unchanged. There is no ascites. The abdominal aorta is unremarkable. There is no retroperitoneal adenopathy. Pelvis: There is a hysterectomy. The vaginal cuff and adnexa are unremarkable. The bladder is unremarkable. There is no ascites or adenopathy. The rectal stump is unremarkable. Impression: There is no bowel distension or obstruction. There are no inflammatory changes or ascites. Total colectomy. Rectal stump is unremarkable. The stomach is distended as described, raising the possibility of gastroparesis. Signed by Geovanni Jordan MD 10/31/2016 02:38 P
[2016-10-31 15:33] LABS: BASO % 0.6 % (0.0-1.0); EOS # 0.1 K/mm3 (0.0-0.50); EOS % 1.6 % (0.0-3.0); LARGE UNSTAINED CELL # 0.1 K/mm3 (0.0-0.4); LYMPH # 1.6 K/mm3 (1.5-4.5); LYMPH % 27.5 % (24.0-44.0); MEAN CORPUSCULAR HEMOGLOBIN 31.9 pg (27.0-33.0); MEAN CORPUSCULAR HGB CONC 32.6 g/dl (32.0-36.5); MEAN CORPUSCULAR VOLUME 97.8 fl (80.0-96.0); MONO # 0.3 K/mm3 (0.0-0.8); MONO % 5.6 % (0.0-5.0); NEUTROPHILS # 3.3 K/mm3 (1.8-7.7); NEUTROPHILS % 62.7 % (36.0-66.0); PLATELET COUNT, AUTOMATED 278 k/mm3 (150-450); RED CELL DISTRIBUTION WIDTH 14.3 % (11.5-14.5); WHITE BLOOD COUNT 5.3 K/mm3 (4.0-10.0)
[2016-10-31 16:14] LABS: ALBUMIN 3.1 GM/DL (3.2-5.2); ALBUMIN/GLOBULIN RATIO 0.69 (1.00-1.93); ALKALINE PHOSPHATASE 107 U/L (45-117); ALT/SGPT 24 U/L (12-78); AMYLASE 36 U/L (25-115); ANION GAP 8 MEQ/L (8-16); AST/SGOT 17 U/L (15-37); BILIRUBIN,DIRECT < 0.1 MG/DL (0.0-0.2); BILIRUBIN,TOTAL 0.2 MG/DL (0.2-1.0); BLOOD UREA NITROGEN 16 MG/DL (7-18); CALCIUM LEVEL 10.2 MG/DL (8.5-10.1); CARBON DIOXIDE LEVEL 27 MEQ/L (21-32); CHLORIDE LEVEL 105 MEQ/L (98-107); CREATININE FOR GFR 0.72 MG/DL (0.55-1.02); GLOMERULAR FILTRATION RATE > 60.0 (>51); GLUCOSE, FASTING 200 MG/DL (70-105); POTASSIUM SERUM 3.8 MEQ/L (3.5-5.1); SODIUM LEVEL 140 MEQ/L (136-145); TOTAL PROTEIN 7.6 GM/DL (6.4-8.2)
[2016-10-31] MEDS ORDERED: SODIUM CHLORIDE 0.9% INJ 10 ML SYR IV PRN (16:30)
[2016-10-31 16:40] VITALS: BP 115/63
[2016-11-01] MEDS ORDERED: SIME180C PO (00:02)
[2016-11-01] MEDS ORDERED: SODIUM CHLORIDE 0.9% INJ 10 ML SYR IV SCH (09:00)
== END 2016-10-31 16:46 | disposition home or self-care (01) ==
LOC: M ED 13:27
DX: R10.9 Unspecified abdominal pain (principal); R11.2 Nausea with vomiting, unspecified; Z88.1 Allergy status to other antibiotic agents; Z88.5 Allergy status to narcotic agent; Z88.6 Allergy status to analgesic agent; Z88.8 Allergy status to other drugs, medicaments and biological substances; Z79.4 Long term (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; Z79.899 Other long term (current) drug therapy

== ENCOUNTER 2016-10-31 20:10 | Emergency (ER) | payer OTHER ==
[~2016-10-31 20:10] MED LIST changes: +MAGN400C3 PO; +ZOFR4TAB3 PO
[2016-10-31] MEDS ORDERED: SIMETHICONE 80 MG CHEW TAB PO ONE (22:30)
[2016-10-31] MEDS ORDERED: GLUCAGON FOR INJ 1 MG VIAL (J1610) IM STA (22:43)
[2016-11-01] MEDS ORDERED: SIME180C PO (00:02)
--- NOTE | 2016-11-01 08:08 | REP ---
Acute abdominal series series including PA chest and supine upright abdomen: Comparison is 10/16/2016. PA chest: Lung garcía are clear, unchanged. Cardiac size is borderline enlarged, I suspect there are bilateral epicardial fat pads. The left costophrenic angle is mildly effaced suggestive of a small left pleural effusion, not definitely present previously. There is a right IJ Xnekcy-L-Qpun catheter with the tip in satisfactory location in the right atrium, unchanged. There is a spinal stimulator in the lower thoracic spine, unchanged. There is no free subdiaphragmatic air. Impression: Question of a small left pleural effusion. No free subdiaphragmatic air. Abdomen, supine and upright views: There is an air-fluid level in the gastric fundus. There is no other bowel distension. There is an ostomy ring in the left lower quadrant inferolateral to the left iliac wing. There are numerous surgical larry and clips throughout the abdomen, unchanged. Skeletal structures and soft tissues are otherwise unremarkable. Impression: Gastric distension. No other bowel distension. Ostomy ring in the left lower quadrant. Signed by Geovanni Jordan MD 11/01/2016 08:00 A
== END 2016-11-01 00:09 | disposition home or self-care (01) ==
LOC: M ED 20:10 → EDBD 20:10 → M ED 11-01 00:09
DX: R14.0 Abdominal distension (gaseous) (principal); E11.9 Type 2 diabetes mellitus without complications; E78.5 Hyperlipidemia, unspecified; F11.10 Opioid abuse, uncomplicated; G89.29 Other chronic pain; Z88.1 Allergy status to other antibiotic agents; Z88.6 Allergy status to analgesic agent; Z88.5 Allergy status to narcotic agent; Z88.8 Allergy status to other drugs, medicaments and biological substances; Z91.041 Radiographic dye allergy status; Z91.040 Latex allergy status; Z79.4 Long term (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; Z79.899 Other long term (current) drug therapy

== ENCOUNTER 2016-11-01 06:45 | Outpatient (CLI) | payer OTHER ==
[~2016-11-01 06:45] MED LIST changes: +MAGNESIUM SULFATE 1 GM/100 ML D5W BAG (10MG/ML) (J3475) IV SCH; +ONDANSETRON 4MG/2ML VIAL (J2405) IV ONE; +SIME180C PO
[2016-11-01] MEDS ORDERED: SODIUM CHLORIDE 0.9% INJ 10 ML SYR IV SCH (09:00)
== END 2016-11-01 11:25 | disposition home or self-care (01) ==
LOC: M INFU 06:45
PROVIDERS: ATTEND Family Medicine
DX: E83.42 Hypomagnesemia (principal); Z88.8 Allergy status to other drugs, medicaments and biological substances; Z88.5 Allergy status to narcotic agent; Z88.1 Allergy status to other antibiotic agents; Z88.0 Allergy status to penicillin; Z91.018 Allergy to other foods; Z91.048 Other nonmedicinal substance allergy status; Z91.02 Food additives allergy status; Z79.4 Long term (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; Z79.899 Other long term (current) drug therapy

== ENCOUNTER 2016-11-06 08:44 | Outpatient (CLI) | payer OTHER ==
[~2016-11-06] VITALS: Ht 170.2 cm; Wt 77.1 kg
[~2016-11-06 08:44] MED LIST changes: -MAGNESIUM SULFATE 1 GM/100 ML D5W BAG (10MG/ML) (J3475) IV SCH; -ONDANSETRON 4MG/2ML VIAL (J2405) IV ONE
[2016-11-06] MEDS ORDERED: ONDANSETRON 4MG/2ML VIAL (J2405) IV ONE (09:00)
[2016-11-06] MEDS ORDERED: SODIUM CHLORIDE 0.9% INJ 10 ML SYR IV SCH (09:00)
== END 2016-11-06 09:45 | disposition home or self-care (01) ==
LOC: M INFU 08:44
PROVIDERS: ATTEND Family Medicine
DX: E83.42 Hypomagnesemia (principal); Z88.8 Allergy status to other drugs, medicaments and biological substances; Z88.5 Allergy status to narcotic agent; Z88.0 Allergy status to penicillin; Z88.1 Allergy status to other antibiotic agents; Z91.018 Allergy to other foods; Z91.048 Other nonmedicinal substance allergy status; Z91.02 Food additives allergy status; Z79.4 Long term (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; Z79.899 Other long term (current) drug therapy

== ENCOUNTER 2016-11-08 10:26 | Outpatient (CLI) | payer OTHER ==
[~2016-11-08 10:26] MED LIST changes: +SODIUM CHLORIDE 0.9% INJ 10 ML SYR IV SCH
[2016-11-08] MEDS ORDERED: ONDANSETRON 4MG/2ML VIAL (J2405) IV ONE (10:45)
[2016-11-08] MEDS: MAG SULF 1GM/100ML (MAG RUN) 1 GM in APPROPRIATE DILUENT 1 EA IV SCH ×2 (11:18→12:33)
== END 2016-11-08 13:15 | disposition home or self-care (01) ==
LOC: M INFU 10:26
PROVIDERS: ATTEND Family Medicine
DX: E83.42 Hypomagnesemia (principal); Z88.8 Allergy status to other drugs, medicaments and biological substances; Z88.5 Allergy status to narcotic agent; Z88.1 Allergy status to other antibiotic agents; Z88.0 Allergy status to penicillin; Z91.018 Allergy to other foods; Z91.048 Other nonmedicinal substance allergy status; Z79.4 Long term (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; Z79.899 Other long term (current) drug therapy; Z91.02 Food additives allergy status

== ENCOUNTER → 2016-11-12 | Outpatient (CLI) | payer OTHER ==
[~2016-11-12] MED LIST changes: +BUPIVACAINE HCL 0.25% 10 ML VIAL As Ordered ONE; +BUPIVACAINE HCL 0.25% 30 ML VIAL As Ordered ONE; +GOLYLQ PO; -SODIUM CHLORIDE 0.9% INJ 10 ML SYR IV SCH; +TRIAMCINOLONE ACETONIDE SUSP 40 MG/ML VIAL (J3301) As Ordered ONE
--- NOTE | 2016-11-27 01:05 | ECWPNPC ---
PATIENT NAME: GLENN FELDER : 1960 GENDER: FEMALE VISIT DATE: 11/12/2016 DISCHARGE DATE: 11/12/16944 VISIT LOCKED DATE TIME: PHYSICIAN: ELLIS HECTOR PHYSICIAN PAGER NO: TEXT TO [phone] RESOURCE: ELLIS HECTOR REASON FOR APPOINTMENT 1. TPI, NECK,SHOULDER,SCAPULA HISTORY OF PRESENT ILLNESS HISTORY OF PRESENT ILLNESS: PAIN THE PATIENT DESCRIBES THE PAIN... FALL RISK SCREENING: SCREENING :NO FALLS IN THE PAST YEAR CURRENT MEDICATIONS TAKING MAY HAVE SAVAGE WAFERS NEW IMAGE SKIN BARRIERS FLATING FLANGES ICD: V55.3 (02140 2 1/2 CHANGE NEEDED (EDUARD), NOTES: CURRENTLY WEARING TAKING BABY WIPES 1 MISCELLANEOUS DIRECTED TOPICALLY PRN DX:569.62 TAKING ROGAINE EXTRA STRENGTH FOR MEN 5 % SOLUTION 1 DROP TO AFFECTED AREA EXTERNALLY TWICE A DAY, NOTES: 11-11-162099 TAKING MAY SAVAGE BAGS CLEAR VELCRO CLOSER ([id number]) ICD:V55.3 CHANGE NEEDED (EDUARD) TAKING PAPER TAPE 1"X12YD 1 TAPE DIRECTED TOPICALLY DX: 078.10 QID PRN BANDAGE CHANGE TAKING GAUZE STRETCH BANDAGE 2X75 ROLL DIRECTED TOIPICALLY DX:078.10 QID PRN TAKING ADHESIVE TAPE 1 TAPE - TOPICALLY DAILY TAKING GAUZE BANDAGE 2" 1 EACH - TOPICALLY TO RIGHT FINGERS DAILY TAKING COMPRESSION STOCKINGS 20/30 STOCKINGS 724.4 THIGH HIGHS DAILY TAKING GLUCERNA 1.0 CARLOS/FIBER 1 CAN - ORALLY 5 TIMES A DAY, NOTES: 11-11-16N 21OO TAKING ONETOUCH ULTRA II TEST STRIPS TEST STRIP ULTRA MINI STRIP 1 ASDIR FOUR TIMES DAILY/DX:250.02 TAKING MAGNESIUM _ _ INFUSION INFUSION ONCE WEEKLY, NOTES: 11-06-16 0900 TAKING NORMAL SALINE FLUSH 0.9 % SOLUTION 1000CC INFUSED OVER 4 HOURS, WITH 1 GM MAGNESIUM SULFATE INTRAVENOUS DAILY TAKING ONE TOUCH ULTRA 2 LANCET 1 LANCET LANCET ICD:250.02 IDDM FOUR TIMES DAILY TAKING SYMBICORT 160-4.5 MCG/ACT AEROSOL 2 PUFFS INHALATION TWICE A DAY, NOTES: 11-11-162099 TAKING ZOCOR 20 20MG TABLET 1 TAB(S) ORAL AT BEDTIME, NOTES: 11-11-162099 TAKING HEPARIN SODIUM (PORCINE) 5000 UNIT/ML SOLUTION INJECTION ONCE DAILY ON WEDNESDAYS AND FRIDAYS, NOTES: 11-06-16899 TAKING LAC-HYDRIN 12 % LOTION 1 APPLICATION TO AFFECTED AREA EXTERNALLY TWICE A DAY, NOTES: 11-06-16899 TAKING ONE TOUCH ULTRA SYSTEM KIT METER DIRECTED ONE TOUCH ULTRA MINI-METER ONLY DX: E11.9, E11.21, E11.22, E11.65 TAKING PEDIALYTE BOTTLE SOLUTION 1 BOTTLE ORALLY DAILY TAKING ONETOUCH LANCETS DELICA LANCET 1 SC 4 TIMES A DAY/DX:E11.90 IDDM TAKING SIMETHICONE 125 MG TABLET CHEWABLE 1 TABLET NEEDED ORALLY FOUR TIMES A DAY PRN ABDOMINAL DISTENTION OR PAIN, NOTES: 11-11-162099 TAKING ALCOHOL PREPS _ WIPE DX: E11.9 TOPICAL 5 TIMES A DAY NEEDED FOR INJECTIONS TAKING ONE TOUCH ULTRA 2 STRIPS 1 STRIPS 1 STRIP SUBCUTANEOUSLY FOUR TIMES DAILY/DX: E11.9 TAKING CETIRIZINE HCL 10 MG TABLET 1 TABLET NEEDED ORALLY ONCE A DAY, NOTES: 11-11-162099 TAKING NASACORT AQ 55 MCG/ACT AEROSOL SOLUTION 1 PUFF IN EACH NOSTRIL NASALLY ONCE A DAY, NOTES: 11-11-162099 TAKING ASTELIN 137 MCG/SPRAY SOLUTION 1 PUFF IN EACH NOSTRIL NASALLY TWICE A DAY, NOTES: 11-11-16899 TAKING TIZANIDINE HCL 2 MG TABLET 1/2 TABLET ORALLY TWICE A DAY, NOTES: 11-11-162099 TAKING ZOFRAN 4 MG/2ML SOLUTION 2 OR 4 ML IM (MEDICALLY NECESSARY) ONCE A DAY, NOTES: 11-11-162099 TAKING RANITIDINE HCL 150 MG TABLET 1 TABLET ORALLY TWICE A DAY, NOTES: 11-11-162099 TAKING SYRINGE 25G X 1 MISCELLANEOUS DIRECTED INTRAMUSCULAR ONCE DAILY; ICD:R11.0 TAKING NOVOLOG MIX 70/30 (70-30) 100 UNIT/ML SUSPENSION 25 UNITS SUBCUTANEOUS DAILY AT THE MIDDAY MEAL, NOTES: 11-11-162099 TAKING LACTULOSE 20 GM/30ML SOLUTION 15 ML ORALLY THREE TIMES DAILY TAKING BD SYRINGE/NEEDLE 23G X 1 MISCELLANEOUS 1 SYRINGE INTRAMUSCULARLY TWICE DAILY DX:R11.0, NOTES: 11-10-161999 TAKING LOPID 600 MG TABLET 1 TABLET ORALLY DAILY, NOTES: 11-11-16899 TAKING CARAFATE 1 GM TABLET 1 TABLET ON AN EMPTY STOMACH ORALLY FOUR TIMES DAILY, NOTES: 11-11-161829 TAKING AMITRIPTYLINE HCL 50 MG TABLET DIRECTED ORALLY 1 TAB IN AM AND 3 TABS AT BEDTIME, NOTES: 11-11-161829 TAKING KLOR-CON M20 20 MEQ TABLET EXTENDED RELEASE 1 TABLET ORALLY ONCE A DAY, NOTES: 11-11-161829 TAKING TOUJEO SOLOSTAR PENS 450 U/1.5ML PREFILLED PENS 40 UNITS SQ QAM TAKING MIRALAX 1 SUSPENSION 17 GRAMS ORALLY THREE TIMES DAILY, NOTES: 11-11-16 1600 TAKING BD PEN NEEDLE ULTRAFINE 29G X 12.7MM MISCELLANEOUS DIRECTED TOPICALLY DAILY TAKING SYRINGE/NEEDLE (DISP) 1CC DIABETIC 1 SQ FOUR TIMES DAILY/DX:E11.9 IDDM TAKING REGLAN 10 MG TABLET 1 TABLET 30 MINUTES BEFORE MEALS AND AT BEDTIME NEEDED ORALLY FOUR TIMES A DAY, NOTES: 11-11-161829 TAKING NEEDLE (DISP) 30G X 1 MISCELLANEOUS 250.0 FOR LEVEMIR PEN VITRO DAILY TAKING HYDROMORPHONE HCL 4 MG TABLET 1/2 -1 TABLET ORALLY EVERY 4 HRS PRN PAIN MDD=5, NOTES: 11-11-162329 NOT-TAKING MAGNESIUM OXIDE 400 MG TABLET DIRECTED ORALLY TID NOT-TAKING A & D ZINC OXIDE - CREAM APPLY TO PERINEAL AREA AFTER EACH BM EXTERNALLY DIRECTED NOT-TAKING CEFDINIR 300 MG CAPSULE 1 CAPSULE ORALLY EVERY 12 HRS NOT-TAKING BENZONATATE 200 MG CAPSULE 1 CAPSULE ORALLY THREE TIMES A DAY NEEDED FOR COUGH NOT-TAKING PREDNISONE 20 MG TABLET 2 TABS WITH FOOD ORALLY ONCE A DAY NOT-TAKING LIDOCAINE 5 % OINTMENT 1 APPLICATION TO AFFECTED AREA NEEDED EXTERNALLY THREE TIMES A DAY TO BACK OF HEAD/NECK PRN PAIN, NOTES: 02/11/16 NOT-TAKING PREDNISONE 20 MG TABLET 3 TABLET ORALLY ONCE A DAY FOR 5 DAYS NOT-TAKING DOXYCYCLINE HYCLATE 100 MG CAPSULE 1 CAPSULE ORALLY EVERY 12 HRS, NOTES: LAST DOSE 02/12/2016 NOT-TAKING DOXYCYCLINE MONOHYDRATE 100 MG TABLET 1 TABLET ORALLY EVERY 12 HRS NOT-TAKING MILK OF MAGNESIA 7.75 % SUSPENSION 5 ML NEEDED ORALLY TWICE DAILY, NOTES: 12-25-151999 NOT-TAKING NYSTATIN POWDER 108114 UNIT/GM POWDER DIRECTED EXTERNALLY TWICE A DAY TO SKIN SURROUNDING STOMA INTIL HEALED, NOTES: NONE NOT-TAKING BENADRYL ALLERGY 25 MG TABLET 1 TABLET NEEDED ORALLY EVERY 6 HRS NOT-TAKING KETOTIFEN FUMARATE 0.025 % SOLUTION 1 DROP INTO AFFECTED EYE OPHTHALMIC TWICE A DAY MEDICATION LIST REVIEWED AND RECONCILED WITH THE PATIENT PAST MEDICAL HISTORY DM II WITH NEUROPATHY ASTHMA HYPERLIPIDEMIA GERD NEPHROLITHIASIS ALLERGIC RHINITIS CHRONIC MAXILLARY SINUSITIS CHRONIC HEADACHES (PAIN MANAGEMENT) CHRONIC PAIN SYNDROME/RSD (PAIN MANAGEMENT) PERSONAL HISTORY OF VENOUS THROMBOSIS AND EMBOLISM (RESOLVED 12/19/2009) H/O MULTIPLE ABDOMINAL SURGERIES ALLERGIES IODINE: NERVES, TIGHT MUSCLES: SIDE EFFECTS GABAPENTIN: NERVOUS SYSTEM,SHAKEY: SIDE EFFECTS GABITRIL: NERVOUS: SIDE EFFECTS KETOROLAC TROMETHAMINE: VOMITING: SIDE EFFECTS MEPERIDINE HCL: OUT OF BODY EXPERIENCE: SIDE EFFECTS MORPHINE SULFATE: SEVERE H/A WITH BIG DOSE: SIDE EFFECTS PROMETHAZINE HCL: OUT OF BODY EXPERIENCE: SIDE EFFECTS TRAMADOL: SHAKES: SIDE EFFECTS OXYCODONE: VOMITING,HIVES: ALLERGY PENICILLIN (FOR ALLERGIES USE ONLY): HIVES: ALLERGY FENTANYL: NERVOUS: SIDE EFFECTS DROPERIDOL: OUT OF BODY: SIDE EFFECTS CODEINE SULFATE: OUT OF BODY EXPERIENCE: SIDE EFFECTS PHENOTHIAZINES: NERVOUS SYSTEM: SIDE EFFECTS QUINOLONES- CIPRO,TEQUIN: HIVES: ALLERGY RED FOOD DYE: RASH: ALLERGY LIDODERM (LICOCANINE): HEART RACES: SIDE EFFECTS SULFA: HIVES: ALLERGY ASPIRIN: HIVES: ALLERGY ATIVAN: HALLUCINATIONS: SIDE EFFECTS AZITHROMYCIN: HIVES: ALLERGY BACLOFEN: AFFECTED NERVOUS SYT: SIDE EFFECTS LYRICA: SHAKES, EVERYTHING IS BLACK: SIDE EFFECTS VICODIN: CONFUSION: SIDE EFFECTS MACROBID: HIVES, BLURRED VISION: ALLERGY READI-CAT: HIVES: ALLERGY ALBUTEROL SULFATE: COUGH: ALLERGY GASTROGRAFIN: ONLY 1 BOTTLE PER TEST DAY (CAN NOT TOLERATE ANY MORE THAN 1 BOTTLE): CONTRAINDICATION LATEX (FOR ALLERGY USE ONLY): DIFFICULTY : ALLERGY REVIEW OF SYSTEMS REVIEWED BY: PROVIDER: . CONSTITUTIONAL: ANY CHANGE IN YOUR MEDICAL CONDITION? NO . CHILLS NO . FEVER NO . INFECTION: DO YOU HAVE NEW INFECTIONS? NO . DO YOU HAVE HISTORY OF MRSA? NO . MUSCULOSKELETAL: ANY NEW PATTERNS OF PAIN OR NUMBNESS? NO . GASTROENTEROLOGY: ANY NEW CHANGE IN BOWEL CONTROL? NO . GENITOURINARY: ANY NEW CHANGE IN BLADDER CONTROL? NO . IS THERE A CHANCE YOU COULD BE ? NO . HEMATOLOGY/LYMPH: DO YOU TAKE ANY BLOOD THINNERS? (FOR EXAMPLE- COUMADIN, PLAVIX, AGGRENOX, PLATEL, PRADAXA, OR XARELTO) NO . WHEN WAS YOUR LAST DOSE? DATE: TIME: . NEUROLOGY: HAVE YOU FALLEN IN THE PAST 6 MONTHS? NO . ANY NEW EXTREMITY NUMBNESS OR WEAKNESS? NO . CARDIOLOGY: DO YOU HAVE A PACEMAKER OR DEFIBRILLATOR? NO . RESPIRATORY: HAVE YOU BEEN SICK IN THE PAST WEEK? NO . FEVER NO . FLU LIKE SYMPTOMS? NO . COUGH NO . INTEGUMENTARY: DO YOU HAVE ANY RASHES OR OPEN SORES? NO . ALLERGIC/IMMUNO: ARE YOU ALLERGIC TO SHELLFISH OR IV DYE? YES . ANY NEW ALLERGIES? YES . PSYCHIATRIC: DO YOU HAVE THOUGHTS OF HURTING YOURSELF OR SOMEONE ELSE? NO . ARE YOU ABUSED, NEGLECTED, OR IN AN UNSAFE ENVIRONMENT? NO . ENDOCRINOLOGY: ARE YOU DIABETIC? NO . OTHER: DO YOU NEED ANY PRESCRIPTIONS? NO . IF YES, PLEASE LIST: ____ . ANY NEW PROBLEMS WITH YOUR MEDICATIONS? NO . WHEN DID YOU LAST EAT? ___8 PM LAST NIGHT . WHEN DID YOU LAST DRINK? ____1100 PM LAST NIGHT . WHAT DID YOU LAST DRINK? ____WATER . NAME OF PERSON DRIVING YOU HOME? ____MOTHER WHO IS HERE WITH PATIENT . DO YOU HAVE ANY OTHER QUESTIONS OR CONCERNS NO . VITAL SIGNS WT 176.2 LBS, HT 67 IN, BMI 27.59 INDEX, BP 114/66 MM HG, HR 82 /MIN, RR 16 /MIN, TEMP 97.0 F, OXYGEN SAT % 99%, NA INITIALS SC 08:54, REVIEWED BY: KG. ASSESSMENTS MYALGIA - M79.1 (PRIMARY) PROCEDURES PN TRIGGER POINT INJECTION WITH STEROIDS PRE PROCEDURE DIAGNOSIS 1. MYALGIA 2. PAIN AT BILATERAL NECK AREA AND BILATERAL SHOULDER AREA POST PROCEDURE DIAGNOSIS 1. MYALGIA 2. PAIN AT BILATERAL NECK AREA AND BILATERAL SHOULDER AREA PROCEDURE TRIGGER POINT INJECTION AT BILATERAL NECK AREA AND BILATERAL SHOULDER AREA SURGEON DR. ELLIS HECTOR CASE REVIEWER NONE ANESTHESIA LOCAL PRE PROCEDURE NOTE THE PATIENT HAS A HISTORY OF CHRONIC PAIN AT THE RIGHT AND LEFT NECK AREA AND RIGHT AND LEFT SHOULDER AREA. I EVALUATE THE PATIENT AND REVIEWED THE CHART. THERE IS EVIDENCE OF BANDS OF TISSUE WITH RESTRICTION OF MOVEMENT AND PRESENCE OF TRIGGER POINT AT THE AFFECTED AREA. I WENT OVER THE RISKS, ALTERNATIVES, AND BENEFITS ASSOCIATED WITH THIS PROCEDURE. THE PATIENT WOULD LIKE TO PROCEED AND GIVE CONSENT TO PERFORMED THE PROCEDURE. THE PATIENT DENIES UNEXPLAINABLE WEIGHT LOSS, FEVER, CHILLS, OR NEW CHANGES IN URINARY OR BOWEL CONTROL DESCRIPTION OF PROCEDURE THE PATIENT WAS BROUGHT TO THE PROCEDURE ROOM AND PLACED IN THE SITTING POSITION. THE AREA WAS CLEANED WITH ALCOHOL. THE PROCEDURE WAS DONE USING ASEPTIC STERILE TECHNIQUE. I CHECKED LATERALITY AND THE LEVEL WHERE THE PROCEDURE WAS GOING TO BE PERFORMED WITH THE PATIENT AND THE SUPPORTING STAFF AT THE MOMENT OF THE TIME OUT IN THE PROCEDURE ROOM. USING A 25-GAUGE NEEDLE, TRIGGER POINTS WERE INJECTED AT THE RIGHT AND LEFT NECK AREA AND RIGHT AND LEFT SHOULDER AREA WITH A TOTAL OF 40 ML OF BUPIVACAINE 0.25% AND KENALOG 40 MG. THERE WAS NO EVIDENCE OF BLOOD, PARESTHESIA OR CEREBROSPINAL FLUID DURING THE PROCEDURE. THE PATIENT WAS SENT TO THE RECOVERY ROOM. THE PATIENT WAS MOVING THE EXTREMITIES AND DOING WELL. THERE WAS NO COMPLICATION DURING THE PROCEDURE POST PROCEDURE NOTE THE PATIENT WILL BE SEEN IN A FOLLOW UP IN THE NEXT FEW WEEKS. INSTRUCTIONS WERE GIVEN, QUESTIONS WERE ANSWERED, AND THE PATIENT EXPRESSED UNDERSTANDING AND AGREES WITH THE PLAN. I, MAYLIN CAMERON, DOCUMENTED THE ABOVE INFORMATION ACTING A SCRIBE FOR DR. HECTOR. I HAVE REVIEWED THE ABOVE DOCUMENT, WRITTEN BY MAYLIN APPIAH AND I VERIFY THAT IT IS ACCURATE PROCEDURE CODES 62092 INJECT TRIGGER POINTS 3/> DISPOSITION & COMMUNICATION FOLLOW UP 3 WEEKS ELECTRONICALLY SIGNED BY ELLIS HECTOR MD ON 11/26/2016 AT 06:42 PM EDT DISCLAIMER : THIS IS A VISIT SUMMARY EXTRACTED FROM THE [employer] CHART. IT IS NOT A COPY OF THE [employer] PROGRESS NOTE. MARLYN
== END ==
LOC: M PAIN 08:30
PROVIDERS: ATTEND Anesthesiology
DX: G89.29 Other chronic pain (principal); M54.2 Cervicalgia; M25.511 Pain in right shoulder; M25.512 Pain in left shoulder; M79.1 Myalgia; E11.9 Type 2 diabetes mellitus without complications; J45.909 Unspecified asthma, uncomplicated; E78.5 Hyperlipidemia, unspecified; K21.9 Gastro-esophageal reflux disease without esophagitis; Z88.3 Allergy status to other anti-infective agents; Z88.8 Allergy status to other drugs, medicaments and biological substances; Z88.5 Allergy status to narcotic agent; Z88.0 Allergy status to penicillin; Z91.018 Allergy to other foods; Z88.2 Allergy status to sulfonamides; Z88.6 Allergy status to analgesic agent; Z91.040 Latex allergy status; Z79.4 Long term (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; Z79.891 Long term (current) use of opiate analgesic; Z79.899 Other long term (current) drug therapy
CPT/HCPCS: 20553; J3301

== ENCOUNTER 2016-11-13 07:42 | Outpatient (CLI) | payer OTHER ==
[~2016-11-13 07:42] MED LIST changes: -BUPIVACAINE HCL 0.25% 10 ML VIAL As Ordered ONE; -BUPIVACAINE HCL 0.25% 30 ML VIAL As Ordered ONE; -GOLYLQ PO; +MAGNESIUM SULFATE 1 GM/100 ML D5W BAG (10MG/ML) (J3475) IV SCH; +ONDANSETRON 4MG/2ML VIAL (J2405) IV ONE; -TRIAMCINOLONE ACETONIDE SUSP 40 MG/ML VIAL (J3301) As Ordered ONE
[2016-11-13] MEDS ORDERED: SODIUM CHLORIDE 0.9% INJ 10 ML SYR IV SCH (09:00)
[2016-11-13] MEDS ORDERED: GOLYLQ PO (14:17)
== END 2016-11-13 08:30 | disposition home or self-care (01) ==
LOC: M INFU 07:42
PROVIDERS: ATTEND Family Medicine
DX: E83.42 Hypomagnesemia (principal); Z88.8 Allergy status to other drugs, medicaments and biological substances; Z88.5 Allergy status to narcotic agent; Z88.1 Allergy status to other antibiotic agents; Z88.0 Allergy status to penicillin; Z91.018 Allergy to other foods; Z91.048 Other nonmedicinal substance allergy status; Z91.02 Food additives allergy status; Z79.4 Long term (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; Z79.899 Other long term (current) drug therapy

== ENCOUNTER 2016-11-13 12:58 | Emergency (ER) | payer OTHER ==
[~2016-11-13 12:58] MED LIST changes: -MAGNESIUM SULFATE 1 GM/100 ML D5W BAG (10MG/ML) (J3475) IV SCH; -ONDANSETRON 4MG/2ML VIAL (J2405) IV ONE
[2016-11-13] MEDS ORDERED: GOLYLQ PO (14:17)
--- NOTE | 2016-11-13 14:20 | REP ---
ACUTE ABDOMINAL SERIES: 11/13/2016 COMPARISON: 10/31, , 10/16/2016, 10/10/2016. CLINICAL HISTORY: Wall pain, constipation AP SUPINE CHEST: There is an indwelling port catheter via the right jugular route terminating in the right atrium. Dorsal column stimulator extending up to the T9 level is again seen. Heart magnified by AP supine technique. No definite edema, dense consolidation or layering effusion. Scarring in the left CP angle is seen and suggested to be mild. ABDOMEN: Supine and cross-table lateral views were obtained. Gas-filled stomach bubble left upper quadrant with mostly fluid-filled bowel loops throughout the remainder the abdomen. No free air on the cross-table lateral. There is an ostomy port over the left lower quadrant. There are numerous abdominal larry from hernia mesh abdomen repairs and multiple surgical clips as well. Pattern is nonspecific and is unchanged from the multiple prior studies. Bones unchanged. IMPRESSION: 1. Nonspecific gas pattern with mostly fluid-filled bowel loops and an ostomy port over the left lower quadrant as well as gas-filled stomach pattern stable over multiple prior studies. Multiple postsurgical changes. Dorsal column stimulator also noted. No free air. 2. Cardiac size magnified by AP supine projection but suspect some left atrial enlargement. No pulmonary edema or dense consolidation. Indwelling port catheter unchanged. Signed by Quirino Phelps MD 11/13/2016 07:11 P
[2016-11-13 14:26] VITALS: BP 135/71
== END 2016-11-13 14:35 | disposition home or self-care (01) ==
LOC: M ED 12:58 → EDBD 12:58 → M ED 14:35
DX: K59.00 Constipation, unspecified (principal); G89.29 Other chronic pain; R10.9 Unspecified abdominal pain; R51 Headache; E78.00 Pure hypercholesterolemia, unspecified; I10 Essential (primary) hypertension; Z88.8 Allergy status to other drugs, medicaments and biological substances; Z88.1 Allergy status to other antibiotic agents; Z88.6 Allergy status to analgesic agent; Z88.5 Allergy status to narcotic agent; Z91.041 Radiographic dye allergy status; Z79.4 Long term (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; Z79.899 Other long term (current) drug therapy

== ENCOUNTER 2016-11-15 06:38 | Outpatient (CLI) | payer OTHER ==
[~2016-11-15] VITALS: Ht 170.2 cm; Wt 77.7 kg
[~2016-11-15 06:38] MED LIST changes: +GOLYLQ PO
[2016-11-15] MEDS ORDERED: ONDANSETRON 4MG/2ML VIAL (J2405) IV ONE (06:45)
[2016-11-15] MEDS: MAGNESIUM SULFATE 1 GM/100 ML D5W BAG (10MG/ML) (J3475) IV SCH ×2 (06:59→09:20)
[2016-11-15] MEDS: SODIUM CHLORIDE 0.9% INJ 10 ML SYR IV SCH ×2 (08:20→11:35)
== END 2016-11-15 11:40 | disposition home or self-care (01) ==
LOC: M INFU 06:38
PROVIDERS: ATTEND Family Medicine
DX: E83.42 Hypomagnesemia (principal); Z88.8 Allergy status to other drugs, medicaments and biological substances; Z88.5 Allergy status to narcotic agent; Z88.1 Allergy status to other antibiotic agents; Z88.0 Allergy status to penicillin; Z91.018 Allergy to other foods; Z91.048 Other nonmedicinal substance allergy status; Z91.02 Food additives allergy status; Z79.4 Long term (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; Z79.899 Other long term (current) drug therapy

== ENCOUNTER 2016-11-20 07:11 | Outpatient (CLI) | payer OTHER ==
[~2016-11-20] VITALS: Ht 170.2 cm; Wt 77.1 kg
[~2016-11-20 07:11] MED LIST changes: +ONDANSETRON 4MG/2ML VIAL (J2405) IV ONE; +SODIUM CHLORIDE 0.9% INJ 10 ML SYR IV SCH
== END 2016-11-20 08:00 | disposition home or self-care (01) ==
LOC: M INFU 07:11
PROVIDERS: ATTEND Family Medicine
DX: E83.42 Hypomagnesemia (principal); Z88.8 Allergy status to other drugs, medicaments and biological substances; Z88.5 Allergy status to narcotic agent; Z88.1 Allergy status to other antibiotic agents; Z88.0 Allergy status to penicillin; Z79.899 Other long term (current) drug therapy; Z91.018 Allergy to other foods; Z79.4 Long term (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; Z91.02 Food additives allergy status
CPT/HCPCS: 36415; 36591; 83735; J2405

== ENCOUNTER 2016-11-22 06:25 | Outpatient (CLI) | payer OTHER ==
[~2016-11-22] VITALS: Ht 170.2 cm; Wt 77.1 kg
[~2016-11-22 06:25] MED LIST changes: -ONDANSETRON 4MG/2ML VIAL (J2405) IV ONE; -SODIUM CHLORIDE 0.9% INJ 10 ML SYR IV SCH
[2016-11-22] MEDS ORDERED: MAGNESIUM SULFATE 1 GM/100 ML D5W BAG (10MG/ML) (J3475) IV SCH (06:30)
[2016-11-22] MEDS ORDERED: ONDANSETRON 4MG/2ML VIAL (J2405) IV ONE (06:30)
[2016-11-22] MEDS ORDERED: SODIUM CHLORIDE 0.9% INJ 10 ML SYR IV SCH (06:30)
== END 2016-11-22 09:20 | disposition home or self-care (01) ==
LOC: M INFU 06:25
PROVIDERS: ATTEND Family Medicine
DX: E83.42 Hypomagnesemia (principal); Z88.8 Allergy status to other drugs, medicaments and biological substances; Z88.5 Allergy status to narcotic agent; Z88.1 Allergy status to other antibiotic agents; Z88.0 Allergy status to penicillin; Z91.018 Allergy to other foods; Z91.048 Other nonmedicinal substance allergy status; Z79.899 Other long term (current) drug therapy; Z79.4 Long term (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; Z91.02 Food additives allergy status
CPT/HCPCS: 96365; 96366; J2405; J3475

== ENCOUNTER 2016-11-27 07:32 | Outpatient (CLI) | payer OTHER ==
[~2016-11-27] VITALS: Ht 170.2 cm; Wt 77.7 kg
[2016-11-27] MEDS ORDERED: ONDANSETRON 4MG/2ML VIAL (J2405) IV ONE (07:45)
[2016-11-27] MEDS ORDERED: SODIUM CHLORIDE 0.9% INJ 10 ML SYR IV SCH (09:00)
== END 2016-11-27 08:20 | disposition home or self-care (01) ==
LOC: M INFU 07:32
PROVIDERS: ATTEND Family Medicine
DX: E83.42 Hypomagnesemia (principal); Z88.8 Allergy status to other drugs, medicaments and biological substances; Z88.5 Allergy status to narcotic agent; Z88.1 Allergy status to other antibiotic agents; Z88.0 Allergy status to penicillin; Z91.018 Allergy to other foods; Z91.048 Other nonmedicinal substance allergy status; Z91.02 Food additives allergy status; Z79.4 Long term (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; Z79.899 Other long term (current) drug therapy
CPT/HCPCS: 36415; 36591; 83735; 96365; J2405

== ENCOUNTER → 2016-11-28 | Outpatient (CLI) | payer OTHER ==
--- NOTE | 2016-12-13 00:29 | ECWPNPC ---
PATIENT NAME: GLENN FELDER : 1960 GENDER: FEMALE VISIT DATE: 11/28/2016 DISCHARGE DATE: 11/28/16 1019 VISIT LOCKED DATE TIME: PHYSICIAN: JENNA FORDE PHYSICIAN PAGER NO: TEXT TO [phone] RESOURCE: JENNA FORDE REASON FOR APPOINTMENT 1. POST TPI HISTORY OF PRESENT ILLNESS HISTORY OF PRESENT ILLNESS: PAIN THE PATIENT DESCRIBES THE PAIN... FALL RISK SCREENING: SCREENING :NO FALLS IN THE PAST YEAR TODAY'S VISIT: NOTES: S/P TRIGGER POINT INJECTION TO BILATERAL NECK AND SHOULDER AREAS WITH STEROIDS ON 11/12/16. THIS WAS HELPFUL TO DECREASE PAIN AND IMPROVE MOBILITY. REPORTS PAIN IS 0/10 IN THIS AREA TODAY. CURRENT MEDICATIONS TAKING MAY HAVE SAVAGE WAFERS NEW IMAGE SKIN BARRIERS FLATING FLANGES ICD: V55.3 (64922 2 1/ CHANGE NEEDED (EDUARD) TAKING BABY WIPES 1 MISCELLANEOUS DIRECTED TOPICALLY PRN DX:569.62 TAKING ROGAINE EXTRA STRENGTH FOR MEN 5 % SOLUTION 1 DROP TO AFFECTED AREA EXTERNALLY TWICE A DAY TAKING MAY SAVAGE BAGS CLEAR VELCRO CLOSER ([id number]) ICD:V55.3 CHANGE NEEDED (EDUARD) TAKING COMPRESSION STOCKINGS 20/ STOCKINGS 724.4 THIGH HIGHS DAILY TAKING GLUCERNA 1.0 CARLOS/FIBER 1 CAN - ORALLY 5 TIMES A DAY TAKING ONETOUCH ULTRA II TEST STRIPS TEST STRIP ULTRA MINI STRIP 1 ASDIR FOUR TIMES DAILY/DX:250.02 TAKING MAGNESIUM _ _ INFUSION INFUSION ONCE WEEKLY TAKING NORMAL SALINE FLUSH 0.9 % SOLUTION 1000CC INFUSED OVER 4 HOURS, WITH 1 GM MAGNESIUM SULFATE INTRAVENOUS DAILY TAKING ONE TOUCH ULTRA 2 LANCET 1 LANCET LANCET ICD:250.02 IDDM FOUR TIMES DAILY TAKING SYMBICORT 160-4.5 MCG/ACT AEROSOL 2 PUFFS INHALATION TWICE A DAY TAKING ZOCOR 20 20MG TABLET 1 TAB(S) ORAL AT BEDTIME TAKING HEPARIN SODIUM (PORCINE) 5000 UNIT/ML SOLUTION INJECTION ONCE DAILY ON WEDNESDAYS AND FRIDAYS TAKING LAC-HYDRIN 12 % LOTION 1 APPLICATION TO AFFECTED AREA EXTERNALLY TWICE A DAY TAKING ONE TOUCH ULTRA SYSTEM KIT METER DIRECTED ONE TOUCH ULTRA MINI-METER ONLY DX: E11.9, E11.21, E11.22, E11.65 TAKING PEDIALYTE BOTTLE SOLUTION 1 BOTTLE ORALLY DAILY TAKING ONETOUCH LANCETS DELICA LANCET 1 SC 4 TIMES A DAY/DX:E11.90 IDDM TAKING ALCOHOL PREPS _ WIPE DX: E11.9 TOPICAL 5 TIMES A DAY NEEDED FOR INJECTIONS TAKING ONE TOUCH ULTRA 2 STRIPS 1 STRIPS 1 STRIP SUBCUTANEOUSLY FOUR TIMES DAILY/DX: E11.9 TAKING CETIRIZINE HCL 5 MG/5ML SYRUP 10 ML ORALLY ONCE A DAY TAKING NASACORT AQ 55 MCG/ACT AEROSOL SOLUTION 1 PUFF IN EACH NOSTRIL NASALLY ONCE A DAY TAKING ASTELIN 137 MCG/SPRAY SOLUTION 1 PUFF IN EACH NOSTRIL NASALLY TWICE A DAY TAKING TIZANIDINE HCL 2 MG TABLET 1/2 TABLET ORALLY TWICE A DAY TAKING ZOFRAN 4 MG/2ML SOLUTION 2 OR 4 ML IM (MEDICALLY NECESSARY) ONCE A DAY TAKING RANITIDINE HCL 150 MG TABLET 1 TABLET ORALLY TWICE A DAY TAKING SYRINGE 25G X 1 MISCELLANEOUS DIRECTED INTRAMUSCULAR ONCE DAILY; ICD:R11.0 TAKING NOVOLOG MIX 70/30 (70-30) 100 UNIT/ML SUSPENSION 25 UNITS SUBCUTANEOUS DAILY AT THE MIDDAY MEAL TAKING LACTULOSE 20 GM/30ML SOLUTION 15 ML ORALLY THREE TIMES DAILY TAKING BD SYRINGE/NEEDLE 23G X 1 MISCELLANEOUS 1 SYRINGE INTRAMUSCULARLY TWICE DAILY DX:R11.0 TAKING LOPID 600 MG TABLET 1 TABLET ORALLY DAILY TAKING AMITRIPTYLINE HCL 50 MG TABLET DIRECTED ORALLY 1 TAB IN AM AND 3 TABS AT BEDTIME TAKING KLOR-CON M20 20 MEQ TABLET EXTENDED RELEASE 1 TABLET ORALLY ONCE A DAY TAKING TOUJEO SOLOSTAR PENS 450 U/1.5ML PREFILLED PENS 40 UNITS SQ QAM TAKING MIRALAX 1 SUSPENSION 17 GRAMS ORALLY THREE TIMES DAILY TAKING BD PEN NEEDLE ULTRAFINE 29G X 12.7MM MISCELLANEOUS DIRECTED TOPICALLY DAILY TAKING SYRINGE/NEEDLE (DISP) 1CC DIABETIC 1 SQ FOUR TIMES DAILY/DX:E11.9 IDDM TAKING NEEDLE (DISP) 30G X 1 MISCELLANEOUS 250.0 FOR LEVEMIR PEN VITRO DAILY TAKING HYDROMORPHONE HCL 4 MG TABLET 1/2 -1 TABLET ORALLY EVERY 4 HRS PRN PAIN MDD=5 TAKING CARAFATE 1 GM/10ML SUSPENSION 10 ML ORALLY 4 TIMES A DAY TAKING DOCUSATE SODIUM 50 MG/5ML LIQUID 5 ML NEEDED ORALLY BID PRN CONSTIPATIO TAKING METOCLOPRAMIDE HCL 5 MG/5ML SOLUTION 10 MG (10ML) ORALLY 30 MINUTES BEFORE MEALS AND AT BEDTIME NEEDED TAKING SIMETHICONE 125 MG TABLET CHEWABLE 1 TABLET NEEDED ORALLY FOUR TIMES A DAY PRN ABDOMINAL DISTENTION OR PAIN NOT-TAKING PAPER TAPE 1"X12YD 1 TAPE DIRECTED TOPICALLY DX: 078.10 QID PRN BANDAGE CHANGE NOT-TAKING GAUZE STRETCH BANDAGE 2X75 ROLL DIRECTED TOIPICALLY DX:078.10 QID PRN NOT-TAKING ADHESIVE TAPE 1 TAPE - TOPICALLY DAILY NOT-TAKING GAUZE BANDAGE 2" 1 EACH - TOPICALLY TO RIGHT FINGERS DAILY NOT-TAKING MAGNESIUM OXIDE 400 MG TABLET DIRECTED ORALLY TID NOT-TAKING A & D ZINC OXIDE - CREAM APPLY TO PERINEAL AREA AFTER EACH BM EXTERNALLY DIRECTED NOT-TAKING CEFDINIR 300 MG CAPSULE 1 CAPSULE ORALLY EVERY 12 HRS NOT-TAKING BENZONATATE 200 MG CAPSULE 1 CAPSULE ORALLY THREE TIMES A DAY NEEDED FOR COUGH NOT-TAKING PREDNISONE 20 MG TABLET 2 TABS WITH FOOD ORALLY ONCE A DAY NOT-TAKING LIDOCAINE 5 % OINTMENT 1 APPLICATION TO AFFECTED AREA NEEDED EXTERNALLY THREE TIMES A DAY TO BACK OF HEAD/NECK PRN PAIN, NOTES: 02/11/16 NOT-TAKING PREDNISONE 20 MG TABLET 3 TABLET ORALLY ONCE A DAY FOR 5 DAYS NOT-TAKING DOXYCYCLINE MONOHYDRATE 100 MG TABLET 1 TABLET ORALLY EVERY 12 HRS NOT-TAKING MILK OF MAGNESIA 7.75 % SUSPENSION 5 ML NEEDED ORALLY TWICE DAILY, NOTES: 12-25-151999 NOT-TAKING NYSTATIN POWDER [id number] UNIT/GM POWDER DIRECTED EXTERNALLY TWICE A DAY TO SKIN SURROUNDING STOMA INTIL HEALED, NOTES: NONE NOT-TAKING BENADRYL ALLERGY 25 MG TABLET 1 TABLET NEEDED ORALLY EVERY 6 HRS NOT-TAKING KETOTIFEN FUMARATE 0.025 % SOLUTION 1 DROP INTO AFFECTED EYE OPHTHALMIC TWICE A DAY MEDICATION LIST REVIEWED AND RECONCILED WITH THE PATIENT PAST MEDICAL HISTORY DM II WITH NEUROPATHY ASTHMA HYPERLIPIDEMIA GERD NEPHROLITHIASIS ALLERGIC RHINITIS CHRONIC MAXILLARY SINUSITIS CHRONIC HEADACHES (PAIN MANAGEMENT) CHRONIC PAIN SYNDROME/RSD (PAIN MANAGEMENT) PERSONAL HISTORY OF VENOUS THROMBOSIS AND EMBOLISM (RESOLVED 12/19/2009) H/O MULTIPLE ABDOMINAL SURGERIES ALLERGIES IODINE: NERVES, TIGHT MUSCLES: SIDE EFFECTS GABAPENTIN: NERVOUS SYSTEM,SHAKEY: SIDE EFFECTS GABITRIL: NERVOUS: SIDE EFFECTS KETOROLAC TROMETHAMINE: VOMITING: SIDE EFFECTS MEPERIDINE HCL: OUT OF BODY EXPERIENCE: SIDE EFFECTS MORPHINE SULFATE: SEVERE H/A WITH BIG DOSE: SIDE EFFECTS PROMETHAZINE HCL: OUT OF BODY EXPERIENCE: SIDE EFFECTS TRAMADOL: SHAKES: SIDE EFFECTS OXYCODONE: VOMITING,HIVES: ALLERGY PENICILLIN (FOR ALLERGIES USE ONLY): HIVES: ALLERGY FENTANYL: NERVOUS: SIDE EFFECTS DROPERIDOL: OUT OF BODY: SIDE EFFECTS CODEINE SULFATE: OUT OF BODY EXPERIENCE: SIDE EFFECTS PHENOTHIAZINES: NERVOUS SYSTEM: SIDE EFFECTS QUINOLONES- CIPRO,TEQUIN: HIVES: ALLERGY RED FOOD DYE: RASH: ALLERGY LIDODERM (LICOCANINE): HEART RACES: SIDE EFFECTS SULFA: HIVES: ALLERGY ASPIRIN: HIVES: ALLERGY ATIVAN: HALLUCINATIONS: SIDE EFFECTS AZITHROMYCIN: HIVES: ALLERGY BACLOFEN: AFFECTED NERVOUS SYT: SIDE EFFECTS LYRICA: SHAKES, EVERYTHING IS BLACK: SIDE EFFECTS VICODIN: CONFUSION: SIDE EFFECTS MACROBID: HIVES, BLURRED VISION: ALLERGY READI-CAT: HIVES: ALLERGY ALBUTEROL SULFATE: COUGH: ALLERGY GASTROGRAFIN: ONLY 1 BOTTLE PER TEST DAY (CAN NOT TOLERATE ANY MORE THAN 1 BOTTLE): CONTRAINDICATION LATEX (FOR ALLERGY USE ONLY): DIFFICULTY : ALLERGY SOCIAL HISTORY GENERAL: TOBACCO USE ARE YOU A:NONSMOKER NEVER SMOKER ALCOHOL SCREENING DID YOU HAVE A DRINK CONTAINING ALCOHOL IN THE PAST YEAR?NO POINTS0 INTERPRETATIONNEGATIVE RECREATIONAL DRUG USE DRUG USE?NO CAFFEINE CAFFEINE USE?NO SEXUAL HX HAD SEX IN THE LAST 12 MONTHS (VAGINAL, ORAL, OR ANAL)?NO HAVE YOU EVER HAD AN STD?NO HIV / HEP-C SCREENING HIV TEST OFFERED TO PATIENT:YES DATE OFFERED:07/18/2016 TEST ACCEPTED:NO REASON:PATIENT DECLINED HEP-C TEST OFFERED TO PATIENT:YES DATE OFFERED:07/18/2016 TEST ACCEPTED:NO REASON:PATIENT DECLINED OCCUPATION: DISABLED. DIET: NO CONCENTRATED SWEETS., CARBOHYDRATE CONTROLLED. EXERCISE: NO REGULAR EXERCISE. MARITAL STATUS: SINGLE. OTHERS AT HOME: NONE. PETS: 3-CATS. CAODAISM [id number] [employer] FRISIAN. EDUCATION LEVEL OF EDUCATION:[employer] 8TH GRADE LEARNING BARRIERS / SPECIAL NEEDS CHANGE FROM LAST VISIT?YES BARRIERS TO LEARNING?NO HEARING IMPAIRED?NO VISION IMPAIRED?YES :CORRECTIVE LENSES COGNITIVELY IMPAIRED?NO READINESS TO LEARN?YES LEARNING PREFERENCES?NO LEARNING CAPABILITIES PRESENT?YES EMOTIONAL BARRIERS?NO SPECIAL DEVICES?YES :CANE, WHEELCHAIR MEAT PACKAGER NEEDED?NO NEW PATIENT PAIN DIARY TODAY'S VISIT NOTES, FROM 0-10, WHAT LEVEL IS YOUR PAIN TODAY? 0. PAIN CLINIC PFS, CLERGY, PUBLIC HEALTH REFERRALS PFS REFERRAL NEEDED?NO CLERGY REFERRAL NEEDED?NO PUBLIC HEALTH REFERRAL NEEDED?NO HAS THE PATIENT BEEN EDUCATED REGARDING HIS/HER PLAN OF CARE?YES HAS THE PATIENT BEEN EDUCATED REGARDING PAIN, THE RISK FOR PAIN, THE IMPORTANCE OF EFFECTIVE PAIN MANAGEMENT, AND THE PAIN ASSESSMENT PROCESS?YES REVIEW OF SYSTEMS REVIEWED BY: PROVIDER: JENNA SANABRIA . CONSTITUTIONAL: ANY CHANGE IN YOUR MEDICAL CONDITION? NO . CHILLS NO . FEVER NO . INFECTION: DO YOU HAVE NEW INFECTIONS? NO . DO YOU HAVE HISTORY OF MRSA? NO . MUSCULOSKELETAL: ANY NEW PATTERNS OF PAIN OR NUMBNESS? NO . GASTROENTEROLOGY: GENERAL ILIOSTOMY FUNCTIONING . ANY NEW CHANGE IN BOWEL CONTROL? NO . GENITOURINARY: ANY NEW CHANGE IN BLADDER CONTROL? NO . IS THERE A CHANCE YOU COULD BE ? NO . HEMATOLOGY/LYMPH: DO YOU TAKE ANY BLOOD THINNERS? (FOR EXAMPLE- COUMADIN, PLAVIX, AGGRENOX, PLATEL, PRADAXA, OR XARELTO) NO . WHEN WAS YOUR LAST DOSE? DATE: TIME: . NEUROLOGY: HAVE YOU FALLEN IN THE PAST 6 MONTHS? NO . ANY NEW EXTREMITY NUMBNESS OR WEAKNESS? NO . CARDIOLOGY: DO YOU HAVE A PACEMAKER OR DEFIBRILLATOR? NO . RESPIRATORY: HAVE YOU BEEN SICK IN THE PAST WEEK? NO . FEVER NO . FLU LIKE SYMPTOMS? NO . COUGH NO . INTEGUMENTARY: DO YOU HAVE ANY RASHES OR OPEN SORES? NO . ALLERGIC/IMMUNO: ARE YOU ALLERGIC TO SHELLFISH OR IV DYE? YES . ANY NEW ALLERGIES? NO . PSYCHIATRIC: DO YOU HAVE THOUGHTS OF HURTING YOURSELF OR SOMEONE ELSE? NO . ARE YOU ABUSED, NEGLECTED, OR IN AN UNSAFE ENVIRONMENT? NO . ENDOCRINOLOGY: ARE YOU DIABETIC? YES BLOOD SUGARS VERY HIGH - 250- 400 WITH STRESS . OTHER: DO YOU NEED ANY PRESCRIPTIONS? YES . IF YES, PLEASE LIST: TIZANIDINE . ANY NEW PROBLEMS WITH YOUR MEDICATIONS? NO . WHEN DID YOU LAST EAT? ____ . WHEN DID YOU LAST DRINK? ____ . WHAT DID YOU LAST DRINK? ____ . NAME OF PERSON DRIVING YOU HOME? ____ . DO YOU HAVE ANY OTHER QUESTIONS OR CONCERNS NO . PSYCHOLOGY: STRESSORS SIG STRESS WITH MOM BEING HOSPITALIZED . VITAL SIGNS WT 172 LBS, HT 67 IN, BMI 26.94 INDEX, BP 136/77 MM HG, HR 79 /MIN, RR 16 /MIN, TEMP 96.6 F, OXYGEN SAT % 100, NA INITIALS SC 09:33, REVIEWED BY: EVITA. EXAMINATION GENERAL EXAMINATION: HEENT:FACE FLUSHED. LUNGS:CLEAR TO AUSCULTATION BILATERALLY. NO WHEEZES. RALES OR RHONCHI. HEART:NORMAL S1S2, NO MURMURS, CLICK OR RUBS. MUSCULOSKELETAL:TRIGGER POINTS AND TIGHT FIBROUS BANDS OVER CERVICAL PARASPINOUS MUSCLES AND ACROSS TRAPEZIUS MISCLES ABLE TO TOLERATE TOUCH TO THIS AREA TODAY .GRADE CHECKER STRENGTH EQUAL AND STRONG. GAIT ANTALGIC. CANE USED FOR BALANCE. ASSESSMENTS OCCIPITAL NEURALGIA - M54.81 (PRIMARY) MYALGIA - M79.1 CHRONIC PRESCRIPTION OPIATE USE - Z79.891 TREATMENT OCCIPITAL NEURALGIA REFILL TIZANIDINE HCL TABLET, 2 MG, 1/2 TABLET, ORALLY, TWICE A DAY, 30 DAY(S), 30, REFILLS 3 NOTES: CONTINUE CURRENT MEDS. DO EXERCISES AND STRETCHES. PROCEDURE CODES FA211 ESTABILISHED PATIENT [facility] CHARGE DISPOSITION & COMMUNICATION FOLLOW UP 2-3 MONTHS (REASON: OK TO CALL FOR TRIGGER POINTS) ELECTRONICALLY SIGNED BY JONATAN LANGFORD ON 12/12/2016 AT 12:51 PM EDT DISCLAIMER : THIS IS A VISIT SUMMARY EXTRACTED FROM THE [employer] CHART. IT IS NOT A COPY OF THE [employer] PROGRESS NOTE. MARLYN
== END ==
LOC: M PAIN 09:20
PROVIDERS: ATTEND Nurse Practitioner Family
DX: G89.29 Other chronic pain (principal); M54.81 Occipital neuralgia; M79.1 Myalgia; E11.9 Type 2 diabetes mellitus without complications; D64.9 Anemia, unspecified; E83.42 Hypomagnesemia; Z88.3 Allergy status to other anti-infective agents; Z88.8 Allergy status to other drugs, medicaments and biological substances; Z88.5 Allergy status to narcotic agent; Z88.0 Allergy status to penicillin; Z91.02 Food additives allergy status; Z88.2 Allergy status to sulfonamides; Z88.6 Allergy status to analgesic agent; Z91.040 Latex allergy status; Z79.4 Long term (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; Z79.899 Other long term (current) drug therapy

== ENCOUNTER 2016-11-29 06:27 | Outpatient (CLI) | payer OTHER ==
[2016-11-29] MEDS ORDERED: ONDANSETRON 4MG/2ML VIAL (J2405) IV ONE (06:45)
[2016-11-29] MEDS: MAGNESIUM SULFATE 1 GM/100 ML D5W BAG (10MG/ML) (J3475) IV SCH ×4 (06:49→10:00)
[2016-11-29] MEDS ORDERED: SODIUM CHLORIDE 0.9% INJ 10 ML SYR IV SCH (09:00)
== END 2016-11-29 11:00 | disposition home or self-care (01) ==
LOC: M INFU 06:27
PROVIDERS: ATTEND Family Medicine
DX: E83.42 Hypomagnesemia (principal); Z88.8 Allergy status to other drugs, medicaments and biological substances; Z88.5 Allergy status to narcotic agent; Z88.0 Allergy status to penicillin; Z88.1 Allergy status to other antibiotic agents; Z91.018 Allergy to other foods; Z91.048 Other nonmedicinal substance allergy status; Z91.02 Food additives allergy status; Z79.4 Long term (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; Z79.899 Other long term (current) drug therapy
CPT/HCPCS: 96365; 96366; J2405; J3475

== ENCOUNTER 2016-12-03 12:46 | Emergency (ER) | payer OTHER ==
[~2016-12-03] VITALS: Ht 170.2 cm; Wt 72.7 kg
[2016-12-03] MEDS ORDERED: HYDROmorphone HCL 1 MG/ML SYRINGE (J1170) IM ONE (14:15)
--- NOTE | 2016-12-03 14:55 | REP ---
KUB ABDOMEN AND PELVIS: KUB film of abdomen and pelvis performed. An ostomy is again seen in the left lower quadrant. There is no radiographic evidence of bowel obstruction. Multiple metallic clips are seen throughout the abdomen and pelvis. Dorsal column stimulator device is again noted. IMPRESSION: No compelling radiographic evidence for bowel obstruction. Signed by Geovanni Camejo MD 12/03/2016 04:46 P
[2016-12-03 17:37] VITALS: BP 135/80
== END 2016-12-03 17:38 | disposition home or self-care (01) ==
LOC: M ED 12:46
DX: R19.7 Diarrhea, unspecified (principal); R10.9 Unspecified abdominal pain
CPT/HCPCS: 74000; 87507; 96372; 99282; J1170

== ENCOUNTER 2016-12-04 07:28 | Outpatient (CLI) | payer OTHER ==
[~2016-12-04] VITALS: Ht 170.2 cm; Wt 77.1 kg
[~2016-12-04 07:28] MED LIST changes: +ONDANSETRON 4MG/2ML VIAL (J2405) IV ONE
[2016-12-04] MEDS ORDERED: SODIUM CHLORIDE 0.9% INJ 10 ML SYR IV SCH (09:00)
== END 2016-12-04 08:20 | disposition home or self-care (01) ==
LOC: M INFU 07:28
PROVIDERS: ATTEND Family Medicine
DX: E83.42 Hypomagnesemia (principal); Z88.8 Allergy status to other drugs, medicaments and biological substances; Z88.5 Allergy status to narcotic agent; Z88.1 Allergy status to other antibiotic agents; Z88.0 Allergy status to penicillin; Z91.018 Allergy to other foods; Z91.048 Other nonmedicinal substance allergy status; Z91.02 Food additives allergy status; Z79.899 Other long term (current) drug therapy; Z79.4 Long term (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
CPT/HCPCS: 36415; 36591; 83735; 96365; J2405

== ENCOUNTER 2016-12-04 14:17 | Emergency (ER) | payer OTHER ==
[~2016-12-04] VITALS: Ht 170.2 cm; Wt 72.7 kg
[~2016-12-04 14:17] MED LIST changes: -ONDANSETRON 4MG/2ML VIAL (J2405) IV ONE
[2016-12-04] MEDS ORDERED: HYDROmorphone HCL 1 MG/ML SYRINGE (J1170) IM ONE (17:00)
[2016-12-04 18:03] VITALS: BP 134/70
--- NOTE | 2016-12-04 18:42 | REP ---
KUB ABDOMEN AND PELVIS: KUB film of the abdomen and pelvis is performed. COMPARISON: 12/03/2016. There is mild air in the stomach. There is no other evidence of bowel dilatation. An ostomy is again seen in the left lower quadrant. There are multiple metallic throughout the abdomen and pelvis. There is a dorsal column stimulator again seen. IMPRESSION: Unremarkable exam. Signed by Geoavnni Camejo MD 12/05/2016 09:01 A
== END 2016-12-04 18:05 | disposition home or self-care (01) ==
LOC: M ED 14:17
DX: R10.9 Unspecified abdominal pain (principal); J45.909 Unspecified asthma, uncomplicated; Z87.19 Personal history of other diseases of the digestive system; Z98.0 Intestinal bypass and anastomosis status; Z88.1 Allergy status to other antibiotic agents; Z88.8 Allergy status to other drugs, medicaments and biological substances; Z88.5 Allergy status to narcotic agent; Z91.040 Latex allergy status; Z91.02 Food additives allergy status; Z91.018 Allergy to other foods; Z88.0 Allergy status to penicillin; Z88.2 Allergy status to sulfonamides; L23.1 Allergic contact dermatitis due to adhesives; Z79.899 Other long term (current) drug therapy; Z79.4 Long term (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
CPT/HCPCS: 74000; 96372; 99282; J1170

== ENCOUNTER 2016-12-06 06:26 | Outpatient (CLI) | payer OTHER ==
[~2016-12-06] VITALS: Ht 170.2 cm; Wt 77.1 kg
[2016-12-06] MEDS ORDERED: SODIUM CHLORIDE 0.9% INJ 10 ML SYR IV SCH (06:30)
[2016-12-06] MEDS ORDERED: ONDANSETRON 4MG/2ML VIAL (J2405) IV ONE (06:30)
[2016-12-06] MEDS: MAGNESIUM SULFATE 1 GM/100 ML D5W BAG (10MG/ML) (J3475) IV SCH ×4 (06:48→10:15)
== END 2016-12-06 11:00 | disposition home or self-care (01) ==
LOC: M INFU 06:26
PROVIDERS: ATTEND Family Medicine
DX: E83.42 Hypomagnesemia (principal); Z88.8 Allergy status to other drugs, medicaments and biological substances; Z88.5 Allergy status to narcotic agent; Z88.1 Allergy status to other antibiotic agents; Z88.0 Allergy status to penicillin; Z91.018 Allergy to other foods; Z91.048 Other nonmedicinal substance allergy status; Z91.02 Food additives allergy status; Z79.899 Other long term (current) drug therapy; Z79.4 Long term (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
CPT/HCPCS: 96365; 96366; J2405; J3475

== ENCOUNTER 2016-12-11 07:47 | Outpatient (CLI) | payer OTHER ==
[~2016-12-11 07:47] MED LIST changes: +ONDANSETRON 4MG/2ML VIAL (J2405) IV ONE
[2016-12-11] MEDS ORDERED: SODIUM CHLORIDE 0.9% INJ 10 ML SYR IV SCH (09:00)
== END 2016-12-11 08:40 | disposition home or self-care (01) ==
LOC: M INFU 07:47
PROVIDERS: ATTEND Family Medicine
DX: E83.42 Hypomagnesemia (principal); Z88.8 Allergy status to other drugs, medicaments and biological substances; Z88.5 Allergy status to narcotic agent; Z88.1 Allergy status to other antibiotic agents; Z88.0 Allergy status to penicillin; Z91.018 Allergy to other foods; Z91.048 Other nonmedicinal substance allergy status; Z91.02 Food additives allergy status; Z79.4 Long term (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; Z79.899 Other long term (current) drug therapy
CPT/HCPCS: 36415; 36591; 83735; 96365; J2405

== ENCOUNTER → 2016-12-12 | Outpatient (CLI) | payer OTHER ==
[~2016-12-12] MED LIST changes: -ONDANSETRON 4MG/2ML VIAL (J2405) IV ONE
== END ==
LOC: M RAD 09:25
PROVIDERS: ATTEND Family Medicine
DX: Z12.31 Encounter for screening mammogram for malignant neoplasm of breast (principal); Z53.9 Procedure and treatment not carried out, unspecified reason

== ENCOUNTER 2016-12-13 09:14 | Outpatient (CLI) | payer OTHER ==
[~2016-12-13 09:14] MED LIST changes: +MAGNESIUM SULFATE 1 GM/100 ML D5W BAG (10MG/ML) (J3475) IV SCH; +ONDANSETRON 4MG/2ML VIAL (J2405) IV ONE; +SODIUM CHLORIDE 0.9% INJ 10 ML SYR IV SCH
[2016-12-13] MEDS ORDERED: MAGNESIUM SULFATE 1 GM/100 ML D5W BAG (10MG/ML) (J3475) IV SCH (10:00)
== END 2016-12-13 12:20 | disposition home or self-care (01) ==
LOC: M INFU 09:14
PROVIDERS: ATTEND Family Medicine
DX: E83.42 Hypomagnesemia (principal); Z88.8 Allergy status to other drugs, medicaments and biological substances; Z88.5 Allergy status to narcotic agent; Z88.0 Allergy status to penicillin; Z88.1 Allergy status to other antibiotic agents; Z91.018 Allergy to other foods; Z91.048 Other nonmedicinal substance allergy status; Z91.02 Food additives allergy status; Z79.4 Long term (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; Z79.899 Other long term (current) drug therapy
CPT/HCPCS: 96365; 96366; J2405; J3475

== ENCOUNTER 2016-12-17 14:54 | Emergency (ER) | payer OTHER ==
[~2016-12-17] VITALS: Ht 170.2 cm; Wt 77.2 kg
[~2016-12-17 14:54] MED LIST changes: -MAGNESIUM SULFATE 1 GM/100 ML D5W BAG (10MG/ML) (J3475) IV SCH; -ONDANSETRON 4MG/2ML VIAL (J2405) IV ONE; -SODIUM CHLORIDE 0.9% INJ 10 ML SYR IV SCH
[2016-12-17] MEDS ORDERED: KETOROLAC 30 MG/ML VIAL (J1885) IV ONE (17:45)
[2016-12-17] MEDS ORDERED: ONDANSETRON 4MG/2ML VIAL (J2405) IV ONE (17:45)
[2016-12-17] MEDS ORDERED: HYDROmorphone HCL 1 MG/ML SYRINGE (J1170) IV ONE ×2 (18:00→20:45)
[2016-12-17 18:45] LABS: BASO % 0.4 % (0.0-1.0); EOS # 0.1 K/mm3 (0.0-0.50); EOS % 1.5 % (0.0-3.0); LARGE UNSTAINED CELL # 0.2 K/mm3 (0.0-0.4); LARGE UNSTAINED CELL % 2.7 % (0.0-4.0); LYMPH # 1.6 K/mm3 (1.5-4.5); LYMPH % 28.6 % (24.0-44.0); MEAN CORPUSCULAR HEMOGLOBIN 32.2 pg (27.0-33.0); MEAN CORPUSCULAR HGB CONC 33.5 g/dl (32.0-36.5); MEAN CORPUSCULAR VOLUME 96.1 fl (80.0-96.0); MONO # 0.4 K/mm3 (0.0-0.8); MONO % 6.6 % (0.0-5.0); NEUTROPHILS # 3.4 K/mm3 (1.8-7.7); NEUTROPHILS % 60.2 % (36.0-66.0); PLATELET COUNT, AUTOMATED 310 k/mm3 (150-450); RED CELL DISTRIBUTION WIDTH 13.7 % (11.5-14.5); WHITE BLOOD COUNT 5.7 K/mm3 (4.0-10.0)
[2016-12-17 19:16] LABS: ALBUMIN 3.5 GM/DL (3.2-5.2); ALBUMIN/GLOBULIN RATIO 0.73 (1.00-1.93); ALKALINE PHOSPHATASE 120 U/L (45-117); ALT/SGPT 30 U/L (12-78); AMYLASE 32 U/L (25-115); ANION GAP 7 MEQ/L (8-16); AST/SGOT 17 U/L (15-37); BILIRUBIN,DIRECT < 0.1 MG/DL (0.0-0.2); BILIRUBIN,TOTAL 0.2 MG/DL (0.2-1.0); BLOOD UREA NITROGEN 13 MG/DL (7-18); CALCIUM LEVEL 10.6 MG/DL (8.5-10.1); CARBON DIOXIDE LEVEL 31 MEQ/L (21-32); CHLORIDE LEVEL 103 MEQ/L (98-107); CREATININE FOR GFR 0.56 MG/DL (0.55-1.02); GLOMERULAR FILTRATION RATE > 60.0 (>51); GLUCOSE, FASTING 82 MG/DL (70-105); POTASSIUM SERUM 3.5 MEQ/L (3.5-5.1); SODIUM LEVEL 141 MEQ/L (136-145); TOTAL PROTEIN 8.3 GM/DL (6.4-8.2)
[2016-12-17] MEDS ORDERED: GASTROGRAFIN SOLUTION 30ML (Q9963) As Ordered ONE (19:27)
[2016-12-17] MEDS ORDERED: GASTROGRAFIN SOLUTION 30ML (Q9963) PO ONE ×2 (19:35→20:05)
[2016-12-17 19:49] LABS: RENAL EPITHELIAL CELLS 2 /HPF
--- NOTE | 2016-12-17 21:33 | REP ---
Clinical: Acute abdominal pain. Technique: Axial contrast enhanced images from the lung bases to the pubic symphysis using oral and 100 ml Isovue 370 intravenous contrast material with coronal and sagittal re-formations. Comparison: 10/31/2016. Findings: Lung bases demonstrate chronic fibroatelectatic changes. Visualized portions of the heart and pericardium stable. Liver, spleen, pancreas, bilateral adrenal glands and kidneys are normal. The patient is status post cholecystectomy. The patient is status post total colectomy with ostomy via the left anterior abdominal wall demonstrating parastomal small bowel herniation without obstruction. The rectal stump is normal. There is no evidence for bowel obstruction or acute inflammatory process. Pelvis demonstrates normal bladder and evidence for prior hysterectomy. No ascites. No free air. No adenopathy. Abdominal aorta and vasculature without aneurysm. Musculoskeletal structures demonstrate degenerative changes without focal osseous abnormality. Epidural stimulator identified. Evidence for ventral hernia repair. Impression: 1. No acute abdominopelvic pathology appreciated. Specifically, no free fluid, free air, adenopathy or mass lesion. No evidence for bowel obstruction. 2. Postsurgical changes including total colectomy with small bowel ostomy, cholecystectomy, hysterectomy and ventral hernia repair. 3. Parastomal hernia contains nondilated, nonobstructed loops of small bowel. 4. Further chronic changes as described above. Signed by Darius Roth MD 12/17/2016 09:25 P
[2016-12-17 21:41] VITALS: BP 111/65
[2016-12-17] MEDS ORDERED: SODIUM CHLORIDE 0.9% INJ 10 ML SYR IV PRN (21:45)
== END 2016-12-17 21:57 | disposition home or self-care (01) ==
LOC: M ED 14:54
DX: R10.84 Generalized abdominal pain (principal)
CPT/HCPCS: 36415; 74176; 80048; 80076; 81001; 82150; 83690; 85025; 96374; 96375; 96376; 99284; J1170; J1885; J2405; Q9963

== ENCOUNTER 2016-12-18 06:42 | Outpatient (CLI) | payer OTHER ==
[~2016-12-18] VITALS: Ht 170.2 cm; Wt 77.1 kg
[2016-12-18] MEDS ORDERED: SODIUM CHLORIDE 0.9% INJ 10 ML SYR IV SCH (07:00)
[2016-12-18] MEDS ORDERED: ONDANSETRON 4MG/2ML VIAL (J2405) IV ONE (07:00)
== END 2016-12-18 08:00 | disposition home or self-care (01) ==
LOC: M INFU 06:42
PROVIDERS: ATTEND Family Medicine
DX: E83.42 Hypomagnesemia (principal); Z88.8 Allergy status to other drugs, medicaments and biological substances; Z88.5 Allergy status to narcotic agent; Z88.1 Allergy status to other antibiotic agents; Z88.0 Allergy status to penicillin; Z91.018 Allergy to other foods; Z91.048 Other nonmedicinal substance allergy status; Z91.02 Food additives allergy status; Z79.899 Other long term (current) drug therapy; Z79.4 Long term (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
CPT/HCPCS: 36415; 36591; 83735; 96374; J2405

== ENCOUNTER 2016-12-20 06:28 | Outpatient (CLI) | payer OTHER ==
[~2016-12-20] VITALS: Ht 170.2 cm; Wt 77.1 kg
[2016-12-20] MEDS ORDERED: SODIUM CHLORIDE 0.9% INJ 10 ML SYR IV SCH (06:30)
[2016-12-20] MEDS ORDERED: MAGNESIUM SULFATE 1 GM/100 ML D5W BAG (10MG/ML) (J3475) IV SCH (06:30)
[2016-12-20] MEDS ORDERED: ONDANSETRON 4MG/2ML VIAL (J2405) IV ONE (06:45)
== END 2016-12-20 10:30 | disposition home or self-care (01) ==
LOC: M INFU 06:28
PROVIDERS: ATTEND Family Medicine
DX: E83.42 Hypomagnesemia (principal); Z88.5 Allergy status to narcotic agent; Z88.1 Allergy status to other antibiotic agents; Z88.8 Allergy status to other drugs, medicaments and biological substances; Z88.0 Allergy status to penicillin; Z91.018 Allergy to other foods; Z91.048 Other nonmedicinal substance allergy status; Z91.02 Food additives allergy status; Z79.899 Other long term (current) drug therapy; Z79.4 Long term (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
CPT/HCPCS: 96365; 96366; J2405; J3475

== ENCOUNTER 2016-12-20 10:48 | Emergency (ER) | payer OTHER ==
[~2016-12-20] VITALS: Ht 170.2 cm; Wt 34.4 kg
[2016-12-20] MEDS ORDERED: METOCLOPRAMIDE INJ 10MG/2ML VIAL (J2765) IV ONE (11:45)
[2016-12-20] MEDS ORDERED: NS 1,000 ML IV ONE (11:45)
[2016-12-20] MEDS: HYDROmorphone HCL 1 MG/ML SYRINGE (J1170) IV PRN ×2 (12:04→13:47)
[2016-12-20 12:34] LABS: BASO % 0.4 % (0.0-1.0); EOS # 0.1 K/mm3 (0.0-0.50); EOS % 1.4 % (0.0-3.0); LARGE UNSTAINED CELL # 0.1 K/mm3 (0.0-0.4); LARGE UNSTAINED CELL % 2.4 % (0.0-4.0); LYMPH # 1.7 K/mm3 (1.5-4.5); LYMPH % 33.7 % (24.0-44.0); MEAN CORPUSCULAR HEMOGLOBIN 31.8 pg (27.0-33.0); MEAN CORPUSCULAR HGB CONC 32.4 g/dl (32.0-36.5); MONO # 0.3 K/mm3 (0.0-0.8); MONO % 6.3 % (0.0-5.0); NEUTROPHILS # 2.8 K/mm3 (1.8-7.7); NEUTROPHILS % 55.7 % (36.0-66.0); PLATELET COUNT, AUTOMATED 284 k/mm3 (150-450); RED CELL DISTRIBUTION WIDTH 13.8 % (11.5-14.5); WHITE BLOOD COUNT 4.9 K/mm3 (4.0-10.0)
[2016-12-20 12:55] LABS: ALBUMIN 3.2 GM/DL (3.2-5.2); ALBUMIN/GLOBULIN RATIO 0.74 (1.00-1.93); ALKALINE PHOSPHATASE 104 U/L (45-117); ALT/SGPT 28 U/L (12-78); ANION GAP 7 MEQ/L (8-16); AST/SGOT 14 U/L (15-37); BILIRUBIN,DIRECT < 0.1 MG/DL (0.0-0.2); BILIRUBIN,TOTAL 0.2 MG/DL (0.2-1.0); BLOOD UREA NITROGEN 17 MG/DL (7-18); CALCIUM LEVEL 10.4 MG/DL (8.5-10.1); CARBON DIOXIDE LEVEL 28 MEQ/L (21-32); CHLORIDE LEVEL 103 MEQ/L (98-107); CREATININE FOR GFR 0.65 MG/DL (0.55-1.02); GLOMERULAR FILTRATION RATE > 60.0 (>51); GLUCOSE, FASTING 254 MG/DL (70-105); MAGNESIUM LEVEL 2.1 MG/DL (1.8-2.4); POTASSIUM SERUM 4.1 MEQ/L (3.5-5.1); SODIUM LEVEL 138 MEQ/L (136-145); TOTAL PROTEIN 7.5 GM/DL (6.4-8.2)
[2016-12-20] MEDS ORDERED: KETOROLAC 30 MG/ML VIAL (J1885) IV ONE (15:00)
[2016-12-20 15:45] VITALS: BP 145/79
[2016-12-20] MEDS ORDERED: SODIUM CHLORIDE 0.9% INJ 10 ML SYR IV ONE (15:45)
== END 2016-12-20 15:59 | disposition home or self-care (01) ==
LOC: M ED 10:48
DX: E11.65 Type 2 diabetes mellitus with hyperglycemia (principal); K43.5 Parastomal hernia without obstruction or gangrene; I10 Essential (primary) hypertension; E78.4 Other hyperlipidemia
CPT/HCPCS: 80048; 80076; 81001; 83690; 83735; 85025; 96374; 96375; 96376; 99283; J1170; J1885; J2765

== ENCOUNTER 2016-12-25 07:24 | Outpatient (CLI) | payer OTHER ==
[~2016-12-25] VITALS: Ht 170.2 cm; Wt 77.1 kg
[2016-12-25] MEDS ORDERED: ONDANSETRON 4MG/2ML VIAL (J2405) IV ONE (07:45)
[2016-12-25] MEDS ORDERED: SODIUM CHLORIDE 0.9% INJ 10 ML SYR IV SCH (09:00)
== END 2016-12-25 08:15 | disposition home or self-care (01) ==
LOC: M INFU 07:24
PROVIDERS: ATTEND Family Medicine
DX: E83.42 Hypomagnesemia (principal); Z88.5 Allergy status to narcotic agent; Z88.1 Allergy status to other antibiotic agents; Z88.8 Allergy status to other drugs, medicaments and biological substances; Z88.3 Allergy status to other anti-infective agents; Z88.0 Allergy status to penicillin; Z91.018 Allergy to other foods; Z91.048 Other nonmedicinal substance allergy status; Z91.02 Food additives allergy status; Z79.899 Other long term (current) drug therapy; Z79.4 Long term (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
CPT/HCPCS: 36415; 36591; 83735; 96365; J2405

== ENCOUNTER 2016-12-27 07:26 | Outpatient (CLI) | payer OTHER ==
[~2016-12-27] VITALS: Ht 170.2 cm; Wt 77.1 kg
[2016-12-27] MEDS ORDERED: ONDANSETRON 4MG/2ML VIAL (J2405) IV ONE (07:30)
[2016-12-27] MEDS ORDERED: MAGNESIUM SULFATE 1 GM/100 ML D5W BAG (10MG/ML) (J3475) IV SCH (08:00)
[2016-12-27] MEDS ORDERED: SODIUM CHLORIDE 0.9% INJ 10 ML SYR IV SCH (09:00)
== END 2016-12-27 10:30 | disposition home or self-care (01) ==
LOC: M INFU 07:26
PROVIDERS: ATTEND Family Medicine
DX: E83.42 Hypomagnesemia (principal); Z88.3 Allergy status to other anti-infective agents; Z88.8 Allergy status to other drugs, medicaments and biological substances; Z88.5 Allergy status to narcotic agent; Z88.1 Allergy status to other antibiotic agents; Z88.0 Allergy status to penicillin; Z91.018 Allergy to other foods; Z91.048 Other nonmedicinal substance allergy status; Z91.02 Food additives allergy status; Z79.899 Other long term (current) drug therapy; Z79.4 Long term (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
CPT/HCPCS: 96365; 96366; J2405; J3475

== ENCOUNTER → 2016-12-30 | Outpatient (CLI) | payer OTHER ==
--- NOTE | 2016-12-30 09:59 | REPMRS ---
Patient History The patient states she has not had a clinical breast exam in over a year. Patient is postmenopausal and is nulliparous. Family history of breast cancer in 5 maternal aunts at age 50 or over. Benign radio exam breast specimen of the right breast, February 03, 2014. Benign stereotatic loc for ea lesion of the right breast, February 03, 2014. Digital Mammo Screening Bilat: December 30, 2016 - Exam #: [id number] Bilateral CC and MLO view(s) were taken. Technologists: Sanjuana Morris, Technologist; Danny Palacios, Technologist Prior study comparison: December 27, 2015, bilateral digital mammo screening bilat performed at [facility]. December 22, 2014, bilateral digital mammo screening bilat performed at [facility]. FINDINGS: There are scattered fibroglandular densities. There has been no change in the appearance of the mammogram from the prior studies. There is a mild amount of residual fibroglandular tissue which is fairly symmetric. There is no interval development of dominant mass, architectural distortion, or clustered microcalcification suggestive of malignancy. ASSESSMENT: BI-RADS/ACR category 1 mammogram. Negative. Recommendation Routine screening mammogram in 1 year (for women over age 40). This mammogram was interpreted with the aid of an FDA-approved computer-aided dectection system. Electronically Signed By: Geovanni Camejo MD 12/30/16 0958
== END ==
LOC: M RAD 08:44
PROVIDERS: ATTEND Family Medicine
DX: Z12.31 Encounter for screening mammogram for malignant neoplasm of breast (principal)

== ENCOUNTER 2017-01-01 07:42 | Outpatient (CLI) | payer OTHER ==
[~2017-01-01 07:42] MED LIST changes: +ONDANSETRON 4MG/2ML VIAL (J2405) IV ONE
[2017-01-01] MEDS ORDERED: SODIUM CHLORIDE 0.9% INJ 10 ML SYR IV SCH (09:00)
== END 2017-01-01 08:45 | disposition home or self-care (01) ==
LOC: M INFU 07:42
PROVIDERS: ATTEND Family Medicine
DX: E83.42 Hypomagnesemia (principal); I10 Essential (primary) hypertension; E78.00 Pure hypercholesterolemia, unspecified; E11.9 Type 2 diabetes mellitus without complications; J45.909 Unspecified asthma, uncomplicated; Z79.4 Long term (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; Z79.899 Other long term (current) drug therapy; Z88.0 Allergy status to penicillin; Z88.5 Allergy status to narcotic agent; Z88.8 Allergy status to other drugs, medicaments and biological substances; Z88.6 Allergy status to analgesic agent
CPT/HCPCS: 36415; 36591; 83735; 96365; J2405

== ENCOUNTER 2017-01-03 07:21 | Outpatient (CLI) | payer OTHER ==
[~2017-01-03] VITALS: Ht 170.2 cm; Wt 77.1 kg
[~2017-01-03 07:21] MED LIST changes: +MAGNESIUM SULFATE 1 GM/100 ML D5W BAG (10MG/ML) (J3475) IV SCH; +SODIUM CHLORIDE 0.9% INJ 10 ML SYR IV SCH
== END 2017-01-03 10:05 | disposition home or self-care (01) ==
LOC: M INFU 07:21
PROVIDERS: ATTEND Family Medicine
DX: E83.42 Hypomagnesemia (principal); E11.9 Type 2 diabetes mellitus without complications; J45.909 Unspecified asthma, uncomplicated; Z79.899 Other long term (current) drug therapy; Z79.4 Long term (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
CPT/HCPCS: 96365; 96366; J2405; J3475

== ENCOUNTER 2017-01-08 07:29 | Outpatient (CLI) | payer OTHER ==
[~2017-01-08] VITALS: Ht 170.2 cm; Wt 77.1 kg
[2017-01-08] MEDS ORDERED: ONDANSETRON 4MG/2ML VIAL (J2405) IV ONE (08:30)
[2017-01-08] MEDS ORDERED: SODIUM CHLORIDE 0.9% INJ 10 ML SYR IV SCH (09:00)
== END 2017-01-08 08:25 | disposition home or self-care (01) ==
LOC: M INFU 07:29
PROVIDERS: ATTEND Family Medicine
DX: E83.42 Hypomagnesemia (principal); Z88.8 Allergy status to other drugs, medicaments and biological substances; Z88.3 Allergy status to other anti-infective agents; Z88.5 Allergy status to narcotic agent; Z88.1 Allergy status to other antibiotic agents; Z88.0 Allergy status to penicillin; Z91.018 Allergy to other foods; Z91.048 Other nonmedicinal substance allergy status; Z91.02 Food additives allergy status; Z91.040 Latex allergy status; Z79.899 Other long term (current) drug therapy; Z79.4 Long term (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
CPT/HCPCS: 36415; 36591; 83735; 96365; J2405

== ENCOUNTER → 2017-01-08 | Outpatient (CLI) | payer OTHER ==
[~2017-01-08] MED LIST changes: -MAGNESIUM SULFATE 1 GM/100 ML D5W BAG (10MG/ML) (J3475) IV SCH; -ONDANSETRON 4MG/2ML VIAL (J2405) IV ONE; -SODIUM CHLORIDE 0.9% INJ 10 ML SYR IV SCH
--- NOTE | 2017-01-09 03:05 | REP ---
Clinical: Cough . Comparison: 11/13/2016 . Technique: PA and lateral. Findings: The mediastinum and cardiac silhouette are normal. Admejk-N-Ufrh identified with tip in the SVC/right atrium. Spinal stimulator device in the lower thoracic level. The lung garcía suggest chronic left basilar changes without acute consolidation, effusion, or pneumothorax. The skeletal structures are intact and normal. Impression: 1. No acute cardiopulmonary process. 2. If the patient remains symptomatic consider chest CT for further investigation. Signed by Darius Roth MD 01/09/2017 02:56 A
== END ==
LOC: M SMT 10:45
PROVIDERS: ATTEND Nurse Practitioner Family
DX: R05 Cough (principal)

== ENCOUNTER 2017-01-10 07:39 | Outpatient (CLI) | payer OTHER ==
[2017-01-09] MEDS: MAGNESIUM SULFATE 1 GM/100 ML D5W BAG (10MG/ML) (J3475) IV SCH (09:00)
[~2017-01-10 07:39] MED LIST changes: +ONDANSETRON 4MG/2ML VIAL (J2405) IV ONE
[2017-01-10] MEDS: MAGNESIUM SULFATE 1 GM/100 ML D5W BAG (10MG/ML) (J3475) IV SCH (07:49)
[2017-01-10] MEDS ORDERED: SODIUM CHLORIDE 0.9% INJ 10 ML SYR IV SCH (09:00)
== END 2017-01-10 10:20 | disposition home or self-care (01) ==
LOC: M INFU 07:39
PROVIDERS: ATTEND Family Medicine
DX: E83.42 Hypomagnesemia (principal); Z88.3 Allergy status to other anti-infective agents; Z88.8 Allergy status to other drugs, medicaments and biological substances; Z88.5 Allergy status to narcotic agent; Z88.1 Allergy status to other antibiotic agents; Z88.0 Allergy status to penicillin; Z91.040 Latex allergy status; Z91.048 Other nonmedicinal substance allergy status; Z91.018 Allergy to other foods; Z91.02 Food additives allergy status; Z79.4 Long term (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; Z79.899 Other long term (current) drug therapy
CPT/HCPCS: 96365; 96366; J2405; J3475

== ENCOUNTER 2017-01-15 06:43 | Outpatient (CLI) | payer OTHER ==
[~2017-01-15] VITALS: Ht 170.2 cm; Wt 77.1 kg
[~2017-01-15 06:43] MED LIST changes: +SODIUM CHLORIDE 0.9% INJ 10 ML SYR IV SCH
== END 2017-01-15 07:50 | disposition home or self-care (01) ==
LOC: M INFU 06:43
PROVIDERS: ATTEND Family Medicine
DX: E83.42 Hypomagnesemia (principal); Z88.8 Allergy status to other drugs, medicaments and biological substances; Z88.1 Allergy status to other antibiotic agents; Z88.5 Allergy status to narcotic agent; Z91.02 Food additives allergy status; Z91.040 Latex allergy status; Z91.018 Allergy to other foods; Z88.0 Allergy status to penicillin; Z88.2 Allergy status to sulfonamides; Z91.048 Other nonmedicinal substance allergy status; Z88.3 Allergy status to other anti-infective agents; Z79.4 Long term (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; Z79.899 Other long term (current) drug therapy; Z79.891 Long term (current) use of opiate analgesic
CPT/HCPCS: 36415; 36591; 83036; 83735; 96365; J2405

== ENCOUNTER 2017-01-17 06:44 | Outpatient (CLI) | payer OTHER ==
[~2017-01-17] VITALS: Ht 170.2 cm; Wt 77.1 kg
[2017-01-17] MEDS ORDERED: ONDANSETRON 4MG/2ML VIAL (J2405) IV ONE (06:45)
[2017-01-17] MEDS ORDERED: SODIUM CHLORIDE 0.9% INJ 10 ML SYR IV SCH (06:45)
[2017-01-17] MEDS: MAGNESIUM SULFATE 1 GM/100 ML D5W BAG (10MG/ML) (J3475) IV SCH ×3 (07:37→09:25)
== END 2017-01-17 11:45 | disposition home or self-care (01) ==
LOC: M INFU 06:44
PROVIDERS: ATTEND Family Medicine
DX: E83.42 Hypomagnesemia (principal); Z88.8 Allergy status to other drugs, medicaments and biological substances; Z88.1 Allergy status to other antibiotic agents; Z88.5 Allergy status to narcotic agent; Z91.02 Food additives allergy status; Z91.040 Latex allergy status; Z91.018 Allergy to other foods; Z88.0 Allergy status to penicillin; Z88.2 Allergy status to sulfonamides; Z91.048 Other nonmedicinal substance allergy status; Z88.3 Allergy status to other anti-infective agents; Z79.4 Long term (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; Z79.899 Other long term (current) drug therapy; Z79.891 Long term (current) use of opiate analgesic
CPT/HCPCS: 96365; 96366; J2405; J3475

== ENCOUNTER → 2017-01-17 | Outpatient (REF) | payer OTHER ==
[~2017-01-17] MED LIST changes: -ONDANSETRON 4MG/2ML VIAL (J2405) IV ONE; -SODIUM CHLORIDE 0.9% INJ 10 ML SYR IV SCH
[2017-01-17 17:30] LABS: ALBUMIN 3.3 GM/DL (3.2-5.2); ANION GAP 8 MEQ/L (8-16); BLOOD UREA NITROGEN 15 MG/DL (7-18); CALCIUM LEVEL 10.3 MG/DL (8.5-10.1); CARBON DIOXIDE LEVEL 31 MEQ/L (21-32); CHLORIDE LEVEL 97 MEQ/L (98-107); GLOMERULAR FILTRATION RATE > 60.0 (>51); GLUCOSE, FASTING 313 MG/DL (70-105); PHOSPHORUS LEVEL 2.9 MG/DL (2.5-4.9); POTASSIUM SERUM 4.1 MEQ/L (3.5-5.1); SODIUM LEVEL 136 MEQ/L (136-145)
== END ==
LOC: M SFHCPLAZ 14:52
PROVIDERS: ATTEND Family Medicine
DX: G89.4 Chronic pain syndrome (principal)

== ENCOUNTER 2017-01-22 07:18 | Outpatient (CLI) | payer OTHER ==
[~2017-01-22 07:18] MED LIST changes: +ONDANSETRON 4MG/2ML VIAL (J2405) IV ONE
[2017-01-22] MEDS ORDERED: SODIUM CHLORIDE 0.9% INJ 10 ML SYR IV SCH (09:00)
== END 2017-01-22 08:15 | disposition home or self-care (01) ==
LOC: M INFU 07:18
PROVIDERS: ATTEND Family Medicine
DX: E83.42 Hypomagnesemia (principal); Z88.8 Allergy status to other drugs, medicaments and biological substances; Z88.1 Allergy status to other antibiotic agents; Z88.5 Allergy status to narcotic agent; Z91.02 Food additives allergy status; Z91.040 Latex allergy status; Z91.018 Allergy to other foods; Z88.0 Allergy status to penicillin; Z88.2 Allergy status to sulfonamides; Z91.048 Other nonmedicinal substance allergy status; Z88.3 Allergy status to other anti-infective agents; Z79.4 Long term (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; Z79.891 Long term (current) use of opiate analgesic; Z79.899 Other long term (current) drug therapy
CPT/HCPCS: 36415; 36591; 83735; 96365; J2405

== ENCOUNTER 2017-01-24 06:35 | Outpatient (CLI) | payer OTHER ==
[~2017-01-24 06:35] MED LIST changes: +MAGNESIUM SULFATE 1 GM/100 ML D5W BAG (10MG/ML) (J3475) IV SCH
[2017-01-24] MEDS ORDERED: SODIUM CHLORIDE 0.9% INJ 10 ML SYR IV SCH (09:00)
== END 2017-01-24 11:15 | disposition home or self-care (01) ==
LOC: M INFU 06:35
PROVIDERS: ATTEND Family Medicine
DX: E83.42 Hypomagnesemia (principal); Z88.8 Allergy status to other drugs, medicaments and biological substances; Z88.1 Allergy status to other antibiotic agents; Z88.5 Allergy status to narcotic agent; Z91.048 Other nonmedicinal substance allergy status; Z91.040 Latex allergy status; Z91.018 Allergy to other foods; Z91.02 Food additives allergy status; Z88.0 Allergy status to penicillin; Z88.2 Allergy status to sulfonamides; Z88.3 Allergy status to other anti-infective agents; Z79.4 Long term (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; Z79.899 Other long term (current) drug therapy; Z79.891 Long term (current) use of opiate analgesic
CPT/HCPCS: 96366; 96375; J2405; J3475

== ENCOUNTER 2017-01-29 07:20 | Outpatient (CLI) | payer OTHER ==
[~2017-01-29 07:20] MED LIST changes: -MAGNESIUM SULFATE 1 GM/100 ML D5W BAG (10MG/ML) (J3475) IV SCH; -ONDANSETRON 4MG/2ML VIAL (J2405) IV ONE
[2017-01-29] MEDS: ONDANSETRON 4MG/2ML VIAL (J2405) IV PRN (07:36)
[2017-01-29] MEDS: SODIUM CHLORIDE 0.9% INJ 10 ML SYR IV SCH (07:36)
== END 2017-01-29 08:10 | disposition home or self-care (01) ==
LOC: M INFU 07:20
PROVIDERS: ATTEND Family Medicine
DX: E83.42 Hypomagnesemia (principal); Z88.5 Allergy status to narcotic agent; Z88.1 Allergy status to other antibiotic agents; Z88.8 Allergy status to other drugs, medicaments and biological substances; Z91.040 Latex allergy status; Z91.018 Allergy to other foods; Z88.0 Allergy status to penicillin; Z88.2 Allergy status to sulfonamides; Z91.048 Other nonmedicinal substance allergy status; Z88.3 Allergy status to other anti-infective agents; Z79.899 Other long term (current) drug therapy; Z79.4 Long term (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; Z79.891 Long term (current) use of opiate analgesic
CPT/HCPCS: 36415; 36591; 83735; 96365; J2405

== ENCOUNTER 2017-01-31 06:33 | Outpatient (CLI) | payer OTHER ==
[~2017-01-31 06:33] MED LIST changes: +MAGNESIUM SULFATE 1 GM/100 ML D5W BAG (10MG/ML) (J3475) IV SCH; +ONDANSETRON 4MG/2ML VIAL (J2405) IV ONE; +SODIUM CHLORIDE 0.9% INJ 10 ML SYR IV SCH
== END 2017-01-31 09:15 | disposition home or self-care (01) ==
LOC: M INFU 06:33
PROVIDERS: ATTEND Family Medicine
DX: E83.42 Hypomagnesemia (principal); Z88.1 Allergy status to other antibiotic agents; Z88.8 Allergy status to other drugs, medicaments and biological substances; Z88.5 Allergy status to narcotic agent; Z88.0 Allergy status to penicillin; Z88.2 Allergy status to sulfonamides; Z91.02 Food additives allergy status; Z91.018 Allergy to other foods; Z91.040 Latex allergy status; Z91.048 Other nonmedicinal substance allergy status; Z88.3 Allergy status to other anti-infective agents; Z79.4 Long term (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; Z79.899 Other long term (current) drug therapy; Z79.891 Long term (current) use of opiate analgesic
CPT/HCPCS: 96365; 96366; 96367; J2405; J3475

== ENCOUNTER → 2017-01-31 | Outpatient (REF) | payer OTHER ==
[2017-01-31 16:06] LABS: ALBUMIN 3.3 GM/DL (3.2-5.2); ANION GAP 8 MEQ/L (8-16); BLOOD UREA NITROGEN 10 MG/DL (7-18); CALCIUM LEVEL 10.5 MG/DL (8.5-10.1); CARBON DIOXIDE LEVEL 30 MEQ/L (21-32); CHLORIDE LEVEL 100 MEQ/L (98-107); CREATININE FOR GFR 0.59 MG/DL (0.55-1.02); GLOMERULAR FILTRATION RATE > 60.0 (>51); GLUCOSE, FASTING 188 MG/DL (70-105); PHOSPHORUS LEVEL 2.9 MG/DL (2.5-4.9); SODIUM LEVEL 138 MEQ/L (136-145)
== END ==
LOC: M SFHCPLAZ 13:23
PROVIDERS: ATTEND Family Medicine
DX: G89.4 Chronic pain syndrome (principal)

== ENCOUNTER → 2017-02-03 | Outpatient (REF) | payer OTHER ==
[~2017-02-03] MED LIST changes: -MAGNESIUM SULFATE 1 GM/100 ML D5W BAG (10MG/ML) (J3475) IV SCH; -ONDANSETRON 4MG/2ML VIAL (J2405) IV ONE; -SODIUM CHLORIDE 0.9% INJ 10 ML SYR IV SCH
== END ==
LOC: M SFHCPLAZ 11:20
PROVIDERS: ATTEND Family Medicine
DX: R05 Cough (principal); Z53.9 Procedure and treatment not carried out, unspecified reason

== ENCOUNTER → 2017-02-18 | Outpatient (CLI) | payer OTHER ==
--- NOTE | 2017-02-26 12:23 | REPIR ---
DATE OF PROCEDURE: 02/18/2017 ATTENDING SURGEON: Dr. Jules Crockett SPEECH AND HEARING DIRECTOR: Megan Mendez and Florencia Quintero. PREOPERATIVE DIAGNOSES: Hypomagnesemia, nonfunctioning right internal jugular vein Port-a-Cath. POSTOPERATIVE DIAGNOSES: Hypomagnesemia, nonfunctioning right internal jugular vein Port-a-Cath. PROCEDURE: Fluoroscopic-guided right internal jugular vein Port-a-Cath evaluation, right internal jugular vein Port-a-Cath flow study. INDICATION: Patient is a 56-year-old female who has a port placed for lab draws and for installation of medications, who has had difficulty with use of the port. Patient will undergo evaluation of the port with possible replacement. Risks, benefits, and alternative treatment options were discussed with the patient. ANESTHESIA: None. ESTIMATED BLOOD LOSS: Minimal. COMPLICATIONS: None. DRAINS: None. SPECIMENS: None. IMPLANTS: None. PROCEDURE: Patient was taken to the angiography suite, placed supine on the angiography room table, and then prepped and draped in the standard surgical fashion. The time-out was completed confirming the correct patient, procedure, and laterality, after which, the right internal jugular vein Port-a-Cath was accessed using a Serrano needle. The port was noticed to aspirate easily and then was flushed easily. A Port-a-Cath flow study was performed showing no obstruction or intervention required. The Serrano needle was removed, and a dressing was applied. Patient tolerated the procedure well. All instruments, sponge, and needle counts were correct at the end of the case. There were no complications. Dr. Crockett was present for and directed the entire case. Patient was transferred to the holding area and subsequently discharged in stable condition. RADIOLOGIC SUPERVISION INTERPRETATION: The port aspirated and flushed easily, after which a catheter flow study was performed showing no fibrin sheath or obstructions noted. There was some difficulty in accessing the port due to its mobility and small size, and if there is continued difficulty with use of the port, the patient may require replacement with a larger port for ease of access.
== END | disposition home or self-care (01) ==
LOC: M IRPRO 09:46
PROVIDERS: ATTEND Nurse Practitioner Family
DX: T82.898A Other specified complication of vascular prosthetic devices, implants and grafts, initial encounter (principal); E83.42 Hypomagnesemia

== ENCOUNTER 2017-02-27 07:15 | Outpatient (CLI) | payer OTHER ==
[~2017-02-27] VITALS: Ht 170.2 cm; Wt 77.1 kg
[2017-02-27] MEDS ORDERED: ONDANSETRON 4MG/2ML VIAL (J2405) IV PRN (07:30)
[2017-02-27] MEDS ORDERED: MAGNESIUM SULFATE 1 GM/100 ML D5W BAG (10MG/ML) (J3475) IV SCH (07:30)
[2017-02-27] MEDS ORDERED: SODIUM CHLORIDE 0.9% INJ 10 ML SYR IV SCH (09:00)
== END 2017-02-27 08:20 | disposition home or self-care (01) ==
LOC: M INFU 07:15
PROVIDERS: ATTEND Family Medicine
DX: E83.42 Hypomagnesemia (principal); Z88.8 Allergy status to other drugs, medicaments and biological substances; Z88.0 Allergy status to penicillin; Z88.2 Allergy status to sulfonamides; Z88.1 Allergy status to other antibiotic agents; Z88.5 Allergy status to narcotic agent; Z91.040 Latex allergy status; Z91.018 Allergy to other foods; Z91.02 Food additives allergy status; Z91.048 Other nonmedicinal substance allergy status; Z88.3 Allergy status to other anti-infective agents; Z79.4 Long term (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; Z79.899 Other long term (current) drug therapy; Z79.891 Long term (current) use of opiate analgesic
CPT/HCPCS: 36415; 36591; 83735; 96365; J2405

== ENCOUNTER 2017-02-28 06:39 | Outpatient (CLI) | payer OTHER ==
[~2017-02-28] VITALS: Ht 170.2 cm; Wt 77.1 kg
[2017-02-28] MEDS ORDERED: SODIUM CHLORIDE 0.9% INJ 10 ML SYR IV SCH (07:00)
[2017-02-28] MEDS ORDERED: MAGNESIUM SULFATE 1 GM/100 ML D5W BAG (10MG/ML) (J3475) IV SCH (07:00)
[2017-02-28] MEDS ORDERED: ONDANSETRON 4MG/2ML VIAL (J2405) IV ONE (07:00)
== END 2017-02-28 11:30 | disposition home or self-care (01) ==
LOC: M INFU 06:39
PROVIDERS: ATTEND Family Medicine
DX: E83.42 Hypomagnesemia (principal); Z88.8 Allergy status to other drugs, medicaments and biological substances; Z88.1 Allergy status to other antibiotic agents; Z88.5 Allergy status to narcotic agent; Z88.0 Allergy status to penicillin; Z88.2 Allergy status to sulfonamides; Z88.3 Allergy status to other anti-infective agents; Z91.02 Food additives allergy status; Z91.040 Latex allergy status; Z91.048 Other nonmedicinal substance allergy status; Z91.018 Allergy to other foods; Z79.4 Long term (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; Z79.891 Long term (current) use of opiate analgesic; Z79.899 Other long term (current) drug therapy
CPT/HCPCS: 96365; 96366; 96375; J2405; J3475

== ENCOUNTER → 2017-03-04 | Outpatient (CLI) | payer OTHER | LOC: M LAB 08:24 | PROVIDERS: ATTEND Family Medicine | DX: E83.42 Hypomagnesemia (principal) ==

== ENCOUNTER 2017-03-07 09:18 | Outpatient (CLI) | payer OTHER ==
[~2017-03-07] VITALS: Ht 170.2 cm; Wt 75.9 kg
[2017-03-07] MEDS ORDERED: ONDANSETRON 4MG/2ML VIAL (J2405) IV PRN (13:30)
[2017-03-07 13:50] VITALS: BP 122/65
[2017-03-07] MEDS: MAGNESIUM SULFATE 1 GM/100 ML D5W BAG (10MG/ML) (J3475) IV SCH ×4 (14:10→17:12)
== END 2017-03-07 18:43 | disposition home health service (06) ==
LOC: M OPCLI4PV 09:18 → M MSPAV 13:22 → M OPCLI4PV 18:43
PROVIDERS: ATTEND Family Medicine
DX: E83.42 Hypomagnesemia (principal); Z88.8 Allergy status to other drugs, medicaments and biological substances; Z88.1 Allergy status to other antibiotic agents; Z88.5 Allergy status to narcotic agent; Z88.0 Allergy status to penicillin; Z88.2 Allergy status to sulfonamides; Z88.3 Allergy status to other anti-infective agents; Z91.040 Latex allergy status; Z91.018 Allergy to other foods; Z91.048 Other nonmedicinal substance allergy status; Z91.02 Food additives allergy status; Z79.891 Long term (current) use of opiate analgesic; Z79.899 Other long term (current) drug therapy; Z79.4 Long term (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
CPT/HCPCS: 96365; 96366; 96375; J3475

== ENCOUNTER → 2017-03-11 | Outpatient (CLI) | payer OTHER | LOC: M LAB 13:20 | PROVIDERS: ATTEND Family Medicine | DX: R11.0 Nausea (principal) ==

== ENCOUNTER 2017-03-14 06:21 | Outpatient (CLI) | payer OTHER ==
[2017-03-14] MEDS ORDERED: SODIUM CHLORIDE 0.9% INJ 10 ML SYR IV SCH (06:30)
[2017-03-14] MEDS ORDERED: ONDANSETRON 4MG/2ML VIAL (J2405) IV ONE (06:45)
[2017-03-14] MEDS: MAGNESIUM SULFATE 1 GM/100 ML D5W BAG (10MG/ML) (J3475) IV SCH ×4 (07:16→10:05)
[2017-03-17] MEDS ORDERED: SIME180C PO (17:42)
== END 2017-03-14 11:15 | disposition home or self-care (01) ==
LOC: M INFU 06:21
PROVIDERS: ATTEND Family Medicine
DX: E83.42 Hypomagnesemia (principal); Z88.5 Allergy status to narcotic agent; Z88.1 Allergy status to other antibiotic agents; Z88.8 Allergy status to other drugs, medicaments and biological substances; Z88.0 Allergy status to penicillin; Z88.3 Allergy status to other anti-infective agents; Z88.2 Allergy status to sulfonamides; Z91.02 Food additives allergy status; Z91.040 Latex allergy status; Z91.048 Other nonmedicinal substance allergy status; Z91.018 Allergy to other foods; Z79.4 Long term (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; Z79.891 Long term (current) use of opiate analgesic; Z79.899 Other long term (current) drug therapy
CPT/HCPCS: 96365; 96366; 96367; J2405; J3475

== ENCOUNTER 2017-03-17 13:34 | Inpatient (IN) | payer OTHER ==
[2017-03-17] MEDS ORDERED: GASTROGRAFIN SOLUTION 30ML (Q9963) As Ordered (14:27)
[2017-03-17] MEDS: HYDROmorphone HCL 1 MG/ML SYRINGE (J1170) IV ×3 (14:38→22:09)
[2017-03-17] MEDS: ONDANSETRON 4MG/2ML VIAL (J2405) IV ×2 (14:38→22:09)
[2017-03-17] MEDS: GASTROGRAFIN SOLUTION 30ML PO (14:40)
[2017-03-17 14:43] LABS: BASO # 0.1 10^3/uL (0.0-0.2); BASO % 0.5 % (0.0-1.0); EOS # 0.1 10^3/uL (0.0-0.50); EOS % 0.5 % (0.0-3.0); HEMATOCRIT 43.9 % (36.0-47.0); IMMATURE GRANULOCYTE # 0.1 10^3/uL (0-0); IMMATURE GRANULOCYTE % 0.6 % (0-0); LYMPH # 1.2 10^3/uL (1.5-4.5); LYMPH % 11.9 % (24.0-44.0); MEAN CORPUSCULAR HEMOGLOBIN 30.9 pg (27.0-33.0); MEAN CORPUSCULAR HGB CONC 31.9 g/dl (32.0-36.5); MEAN CORPUSCULAR VOLUME 96.9 fl (80.0-96.0); MONO # 0.7 10^3/uL (0.0-0.8); MONO % 7.1 % (0.0-5.0); NEUTROPHILS # 8.2 10^3/uL (1.8-7.7); NEUTROPHILS % 79.4 % (36.0-66.0); PLATELET COUNT, AUTOMATED 365 10^3/uL (150-450); RED BLOOD COUNT 4.53 10^6/uL (4.00-5.40); RED CELL DISTRIBUTION WIDTH 13.9 % (11.5-14.5); WHITE BLOOD COUNT 10.3 10^3/uL (4.0-10.0)
[2017-03-17] MEDS: GASTROGRAFIN SOLUTION 30ML (Q9963) PO (15:05)
[2017-03-17 15:14] LABS: ALBUMIN 4.3 GM/DL (3.2-5.2); ALBUMIN/GLOBULIN RATIO 0.81 (1.00-1.93); ALKALINE PHOSPHATASE 150 U/L (45-117); ALT/SGPT 47 U/L (12-78); ANION GAP 9 MEQ/L (8-16); AST/SGOT 34 U/L (7-37); BILIRUBIN,DIRECT < 0.1 MG/DL (0.0-0.2); BILIRUBIN,TOTAL 0.3 MG/DL (0.2-1.0); BLOOD UREA NITROGEN 16 MG/DL (7-18); CARBON DIOXIDE LEVEL 30 MEQ/L (21-32); CHLORIDE LEVEL 95 MEQ/L (98-107); GLOMERULAR FILTRATION RATE > 60.0 (>51); GLUCOSE, FASTING 249 MG/DL (70-105); LIPASE 120 U/L (73-393); POTASSIUM SERUM 4.4 MEQ/L (3.5-5.1); SODIUM LEVEL 134 MEQ/L (136-145); TOTAL PROTEIN 9.6 GM/DL (6.4-8.2)
[2017-03-17] MEDS: NS 1,000 ML IV (16:44)
[2017-03-17] MEDS ORDERED: LIDOCAINE 2% JELLY 30 ML As Ordered (17:04)
[2017-03-17] MEDS ORDERED: BISACODYL 10 MG SUPP PR (17:45)
[2017-03-17] MEDS: KETOROLAC 30 MG/ML VIAL (J1885) IV (18:49)
[2017-03-17] MEDS: LR 1,000 ML IV (18:49)
[2017-03-17 20:46] LABS: BEDSIDE GLUCOSE 187 MG/DL (70-105)
[2017-03-17] MEDS: SYMBICORT 160/4.5MCG INHALER 6GM INH (21:00)
[2017-03-17] MEDS: AMITRIPTYLINE 50 MG TAB PO (23:03)
[2017-03-17] MEDS: SIMVASTATIN 20 MG TAB PO (23:03)
[2017-03-17] MEDS: HEPARIN SOD (PORCINE) 5000 UNITS/ML VIAL SC (23:03)
[2017-03-17] MEDS: tiZANidine 4 MG TAB PO (23:04)
[2017-03-17] MEDS: SENOKOT S TAB PO (23:04)
[2017-03-17] MEDS: SUCRALFATE 1 GM TAB PO (23:30)
[2017-03-17] MEDS: LACTULOSE 20 GM/30 ML SYRUP UD PO (23:31)
[2017-03-17] MEDS: AZELASTINE 137MCG NASAL SPY 30 ML (ASTELIN) (23:31)
[2017-03-17] MEDS: METOCLOPRAMIDE 10 MG TAB PO (23:31)
[2017-03-17] MEDS: SIMETHICONE 80 MG CHEW TAB PO (23:32)
[2017-03-18] MEDS: LR 1,000 ML IV ×3 (00:29→17:01)
[2017-03-18] MEDS: HYDROmorphone HCL 1 MG/ML SYRINGE (J1170) IV ×6 (01:49→19:58)
[2017-03-18] MEDS: KETOROLAC 30 MG/ML VIAL (J1885) IV ×3 (04:10→17:01)
[2017-03-18] MEDS: ONDANSETRON 4MG/2ML VIAL (J2405) IV ×2 (04:10→21:22)
[2017-03-18] MEDS: HEPARIN SOD (PORCINE) 5000 UNITS/ML VIAL SC ×3 (05:36→21:23)
[2017-03-18] MEDS: SIMETHICONE 80 MG CHEW TAB PO ×4 (06:14→17:11)
[2017-03-18 06:21] LABS: HEMATOCRIT 35.1 % (36.0-47.0); MEAN CORPUSCULAR HEMOGLOBIN 30.7 pg (27.0-33.0); MEAN CORPUSCULAR HGB CONC 32.2 g/dl (32.0-36.5); MEAN CORPUSCULAR VOLUME 95.4 fl (80.0-96.0); PLATELET COUNT, AUTOMATED 309 10^3/uL (150-450); RED BLOOD COUNT 3.68 10^6/uL (4.00-5.40); RED CELL DISTRIBUTION WIDTH 13.8 % (11.5-14.5); WHITE BLOOD COUNT 4.5 10^3/uL (4.0-10.0)
[2017-03-18 06:37] LABS: ANION GAP 6 MEQ/L (8-16); BLOOD UREA NITROGEN 21 MG/DL (7-18); CALCIUM LEVEL 9.8 MG/DL (8.5-10.1); CARBON DIOXIDE LEVEL 29 MEQ/L (21-32); CHLORIDE LEVEL 103 MEQ/L (98-107); CREATININE FOR GFR 0.57 MG/DL (0.55-1.02); GLOMERULAR FILTRATION RATE > 60.0 (>51); GLUCOSE, FASTING 144 MG/DL (70-105); MAGNESIUM LEVEL 1.6 MG/DL (1.8-2.4); POTASSIUM SERUM 3.8 MEQ/L (3.5-5.1); SODIUM LEVEL 138 MEQ/L (136-145)
[2017-03-18 06:50] LABS: HEMOGLOBIN 11.3 g/dl (12.0-16.0)
[2017-03-18] MEDS: SUCRALFATE 1 GM TAB PO ×4 (07:30→21:00)
[2017-03-18] MEDS: HumuLIN (NovoLIN)70/30 INSULIN INJ PER UNIT SC (07:30)
[2017-03-18] MEDS: SYMBICORT 160/4.5MCG INHALER 6GM INH ×2 (07:40→21:00)
[2017-03-18] MEDS ORDERED: LACTIC ACID 12% LOTION 225 GM BTL TOP (08:45)
[2017-03-18] MEDS: PANTOPRAZOLE 40MG INJ (PROTONIX) (C9113) IV (08:50)
[2017-03-18] MEDS: MIRALAX *UNIT DOSE* 17GM PACKET PO ×5 (08:51→17:11)
[2017-03-18] MEDS: POTASSIUM CHLORIDE 10 MEQ SR TABLET PO (08:51)
[2017-03-18] MEDS: GEMFIBROZIL 600 MG TAB PO (08:51)
[2017-03-18] MEDS: CETIRIZINE (ZyrTEC) 10 MG TAB PO (08:51)
[2017-03-18] MEDS: METOCLOPRAMIDE 10 MG TAB PO ×4 (08:52→21:23)
[2017-03-18] MEDS: AMITRIPTYLINE 50 MG TAB PO ×2 (08:52→21:23)
[2017-03-18] MEDS: tiZANidine 4 MG TAB PO ×2 (08:52→21:23)
[2017-03-18] MEDS: MULTIVITAMINS/MINERALS THERAP 1 TAB PO (08:52)
[2017-03-18] MEDS: SENOKOT S TAB PO ×2 (08:52→21:23)
[2017-03-18] MEDS: AZELASTINE 137MCG NASAL SPY 30 ML (ASTELIN) ×2 (08:53→21:00)
[2017-03-18] MEDS: MAGNESIUM CITRATE 300 ML BTL PO (08:53)
[2017-03-18] MEDS: LACTULOSE 20 GM/30 ML SYRUP UD PO ×3 (08:53→21:00)
[2017-03-18] MEDS: BISACODYL 10 MG SUPP XX ×2 (09:00→21:24)
[2017-03-18] MEDS: LIDOCAINE 2% JELLY 30 ML TOP (13:07)
[2017-03-18] MEDS ORDERED: GLUCOSE 4 GM CHEW TABLET PO (17:45)
[2017-03-18] MEDS ORDERED: GLUCAGON FOR INJ 1 MG VIAL (J1610) SC (17:45)
[2017-03-18] MEDS ORDERED: DEXTROSE 50% 50 ML SYRINGE IV (17:45)
[2017-03-18] MEDS: HumaLOG INSULIN (NovoLOG) PER UNIT SC (18:00)
[2017-03-18] MEDS: SIMVASTATIN 20 MG TAB PO (21:23)
[2017-03-19] MEDS: HYDROmorphone HCL 1 MG/ML SYRINGE (J1170) IV ×7 (00:24→21:06)
[2017-03-19 00:35] LABS: BEDSIDE GLUCOSE 88 MG/DL (70-105)
[2017-03-19] MEDS: LR 1,000 ML IV ×3 (01:25→17:19)
[2017-03-19] MEDS: KETOROLAC 30 MG/ML VIAL (J1885) IV (02:24)
[2017-03-19] MEDS: HumaLOG INSULIN (NovoLOG) PER UNIT SC ×4 (05:49→17:23)
[2017-03-19 05:54] LABS: BEDSIDE GLUCOSE 83 MG/DL (70-105)
[2017-03-19] MEDS: SIMETHICONE 80 MG CHEW TAB PO ×3 (06:29→17:15)
[2017-03-19] MEDS: HEPARIN SOD (PORCINE) 5000 UNITS/ML VIAL SC ×3 (06:29→21:05)
[2017-03-19 06:36] LABS: HEMATOCRIT 32.3 % (36.0-47.0); HEMOGLOBIN 10.2 g/dl (12.0-16.0); MEAN CORPUSCULAR HGB CONC 31.6 g/dl (32.0-36.5); MEAN CORPUSCULAR VOLUME 98.2 fl (80.0-96.0); PLATELET COUNT, AUTOMATED 290 10^3/uL (150-450); RED BLOOD COUNT 3.29 10^6/uL (4.00-5.40); RED CELL DISTRIBUTION WIDTH 13.7 % (11.5-14.5)
[2017-03-19 06:55] LABS: ANION GAP 5 MEQ/L (8-16); BLOOD UREA NITROGEN 12 MG/DL (7-18); CALCIUM LEVEL 9.8 MG/DL (8.5-10.1); CARBON DIOXIDE LEVEL 33 MEQ/L (21-32); CHLORIDE LEVEL 101 MEQ/L (98-107); CREATININE FOR GFR 0.46 MG/DL (0.55-1.02); GLOMERULAR FILTRATION RATE > 60.0 (>51); GLUCOSE, FASTING 86 MG/DL (70-105); MAGNESIUM LEVEL 1.7 MG/DL (1.8-2.4); POTASSIUM SERUM 3.5 MEQ/L (3.5-5.1); SODIUM LEVEL 139 MEQ/L (136-145)
[2017-03-19] MEDS: LACTULOSE 20 GM/30 ML SYRUP UD PO ×3 (07:47→20:34)
[2017-03-19] MEDS: AZELASTINE 137MCG NASAL SPY 30 ML (ASTELIN) ×2 (07:47→20:33)
[2017-03-19] MEDS: PANTOPRAZOLE 40MG INJ (PROTONIX) (C9113) IV (07:47)
[2017-03-19] MEDS: METOCLOPRAMIDE 10 MG TAB PO ×4 (07:48→20:32)
[2017-03-19] MEDS: SUCRALFATE 1 GM TAB PO (07:48)
[2017-03-19] MEDS: MIRALAX *UNIT DOSE* 17GM PACKET PO ×6 (07:48→17:16)
[2017-03-19] MEDS: MULTIVITAMINS/MINERALS THERAP 1 TAB PO (07:48)
[2017-03-19] MEDS: GEMFIBROZIL 600 MG TAB PO (07:48)
[2017-03-19] MEDS: HumuLIN (NovoLIN)70/30 INSULIN INJ PER UNIT SC (07:49)
[2017-03-19] MEDS: POTASSIUM CHLORIDE 10 MEQ SR TABLET PO (07:49)
[2017-03-19] MEDS: tiZANidine 4 MG TAB PO ×2 (07:49→20:33)
[2017-03-19] MEDS: AMITRIPTYLINE 50 MG TAB PO ×2 (07:49→20:32)
[2017-03-19] MEDS: CETIRIZINE (ZyrTEC) 10 MG TAB PO (07:49)
[2017-03-19] MEDS: BISACODYL 10 MG SUPP XX ×2 (07:50→20:33)
[2017-03-19] MEDS: SENOKOT S TAB PO ×2 (07:50→20:32)
[2017-03-19] MEDS: MAG SULF 1GM/100ML (MAG RUN) 1 GM in APPROPRIATE DILUENT 1 EA IV ×2 (10:13→11:48)
[2017-03-19] MEDS: SYMBICORT 160/4.5MCG INHALER 6GM INH ×2 (11:36→21:00)
[2017-03-19] MEDS: SUCRALFATE SUSP 1GM/10ML UD PO ×3 (11:46→20:32)
[2017-03-19 12:21] LABS: BEDSIDE GLUCOSE 80 MG/DL (70-105)
[2017-03-19 19:20] LABS: BEDSIDE GLUCOSE 82 MG/DL (70-105)
[2017-03-19] MEDS: SIMVASTATIN 20 MG TAB PO (20:32)
[2017-03-20] MEDS: SIMETHICONE 80 MG CHEW TAB PO ×4 (00:06→17:36)
[2017-03-20] MEDS: HYDROmorphone HCL 1 MG/ML SYRINGE (J1170) IV ×7 (00:08→21:20)
[2017-03-20] MEDS: LR 1,000 ML IV ×4 (00:11→17:08)
[2017-03-20] MEDS: HumaLOG INSULIN (NovoLOG) PER UNIT SC ×4 (00:13→17:45)
[2017-03-20] MEDS: ONDANSETRON 4MG/2ML VIAL (J2405) IV ×2 (05:04→15:04)
[2017-03-20] MEDS: HEPARIN SOD (PORCINE) 5000 UNITS/ML VIAL SC ×3 (06:38→21:21)
[2017-03-20 07:31] LABS: HEMOGLOBIN 10.1 g/dl (12.0-16.0); MEAN CORPUSCULAR HEMOGLOBIN 31.5 pg (27.0-33.0); MEAN CORPUSCULAR HGB CONC 31.6 g/dl (32.0-36.5); MEAN CORPUSCULAR VOLUME 99.7 fl (80.0-96.0); PLATELET COUNT, AUTOMATED 265 10^3/uL (150-450); RED BLOOD COUNT 3.21 10^6/uL (4.00-5.40); RED CELL DISTRIBUTION WIDTH 13.7 % (11.5-14.5); WHITE BLOOD COUNT 5.6 10^3/uL (4.0-10.0)
[2017-03-20] MEDS: METOCLOPRAMIDE 10 MG TAB PO ×4 (07:40→21:18)
[2017-03-20] MEDS: SUCRALFATE SUSP 1GM/10ML UD PO ×4 (07:40→21:20)
[2017-03-20] MEDS: MIRALAX *UNIT DOSE* 17GM PACKET PO ×6 (07:40→17:36)
[2017-03-20 07:46] LABS: ANION GAP 9 MEQ/L (8-16); BLOOD UREA NITROGEN 5 MG/DL (7-18); CALCIUM LEVEL 9.2 MG/DL (8.5-10.1); CARBON DIOXIDE LEVEL 28 MEQ/L (21-32); CHLORIDE LEVEL 103 MEQ/L (98-107); CREATININE FOR GFR 0.46 MG/DL (0.55-1.02); GLOMERULAR FILTRATION RATE > 60.0 (>51); GLUCOSE, FASTING 101 MG/DL (70-105); MAGNESIUM LEVEL 1.8 MG/DL (1.8-2.4); POTASSIUM SERUM 3.7 MEQ/L (3.5-5.1); SODIUM LEVEL 140 MEQ/L (136-145)
[2017-03-20] MEDS: SYMBICORT 160/4.5MCG INHALER 6GM INH ×2 (07:48→21:32)
[2017-03-20 08:00] LABS: BEDSIDE GLUCOSE 103 MG/DL (70-105)
[2017-03-20] MEDS: PANTOPRAZOLE 40MG INJ (PROTONIX) (C9113) IV (08:49)
[2017-03-20] MEDS: SENOKOT S TAB PO ×2 (10:25→21:17)
[2017-03-20] MEDS: MULTIVITAMINS/MINERALS THERAP 1 TAB PO (10:25)
[2017-03-20] MEDS: POTASSIUM CHLORIDE 10 MEQ SR TABLET PO (10:26)
[2017-03-20] MEDS: tiZANidine 4 MG TAB PO ×2 (10:26→21:18)
[2017-03-20] MEDS: BISACODYL 10 MG SUPP XX ×2 (10:26→21:19)
[2017-03-20] MEDS: GEMFIBROZIL 600 MG TAB PO (10:26)
[2017-03-20] MEDS: CETIRIZINE (ZyrTEC) 10 MG TAB PO (10:27)
[2017-03-20] MEDS: AMITRIPTYLINE 50 MG TAB PO ×2 (10:27→21:18)
[2017-03-20] MEDS: LACTULOSE 20 GM/30 ML SYRUP UD PO ×3 (10:27→21:20)
[2017-03-20] MEDS: MAGNESIUM CITRATE 300 ML BTL PO (10:28)
[2017-03-20] MEDS: AZELASTINE 137MCG NASAL SPY 30 ML (ASTELIN) ×2 (10:28→21:19)
[2017-03-20 11:33] LABS: BEDSIDE GLUCOSE 121 MG/DL (70-105)
[2017-03-20] MEDS: KETOROLAC 30 MG/ML VIAL (J1885) IV (11:55)
[2017-03-20 17:50] LABS: BEDSIDE GLUCOSE 97 MG/DL (70-105)
[2017-03-20 19:44] LABS: BEDSIDE GLUCOSE 92 MG/DL (70-105)
[2017-03-20] MEDS: SIMVASTATIN 20 MG TAB PO (21:18)
[2017-03-20 23:53] LABS: BEDSIDE GLUCOSE 133 MG/DL (70-105)
[2017-03-21] MEDS: SIMETHICONE 80 MG CHEW TAB PO ×4 (00:02→17:05)
[2017-03-21] MEDS: LR 1,000 ML IV ×3 (00:03→17:35)
[2017-03-21] MEDS: HYDROmorphone HCL 1 MG/ML SYRINGE (J1170) IV ×7 (00:30→20:32)
[2017-03-21] MEDS: ONDANSETRON 4MG/2ML VIAL (J2405) IV ×3 (02:07→21:59)
[2017-03-21 05:59] LABS: HEMOGLOBIN 9.7 g/dl (12.0-16.0); MEAN CORPUSCULAR HEMOGLOBIN 30.6 pg (27.0-33.0); MEAN CORPUSCULAR HGB CONC 31.3 g/dl (32.0-36.5); MEAN CORPUSCULAR VOLUME 97.8 fl (80.0-96.0); PLATELET COUNT, AUTOMATED 270 10^3/uL (150-450); RED BLOOD COUNT 3.17 10^6/uL (4.00-5.40); RED CELL DISTRIBUTION WIDTH 13.4 % (11.5-14.5); WHITE BLOOD COUNT 5.8 10^3/uL (4.0-10.0)
[2017-03-21] MEDS: HumaLOG INSULIN (NovoLOG) PER UNIT SC ×5 (06:00→20:33)
[2017-03-21] MEDS: HEPARIN SOD (PORCINE) 5000 UNITS/ML VIAL SC ×3 (06:02→21:03)
[2017-03-21 06:06] LABS: BEDSIDE GLUCOSE 78 MG/DL (70-105)
[2017-03-21 06:28] LABS: ANION GAP 12 MEQ/L (8-16); BLOOD UREA NITROGEN 3 MG/DL (7-18); CARBON DIOXIDE LEVEL 24 MEQ/L (21-32); CHLORIDE LEVEL 105 MEQ/L (98-107); CREATININE FOR GFR 0.38 MG/DL (0.55-1.02); GLOMERULAR FILTRATION RATE > 60.0 (>51); GLUCOSE, FASTING 80 MG/DL (70-105); MAGNESIUM LEVEL 1.6 MG/DL (1.8-2.4); POTASSIUM SERUM 3.7 MEQ/L (3.5-5.1); SODIUM LEVEL 141 MEQ/L (136-145)
[2017-03-21] MEDS: SYMBICORT 160/4.5MCG INHALER 6GM INH ×2 (08:10→19:58)
[2017-03-21] MEDS: SENOKOT S TAB PO ×2 (08:18→20:30)
[2017-03-21] MEDS: AMITRIPTYLINE 50 MG TAB PO ×2 (08:18→20:31)
[2017-03-21] MEDS: SUCRALFATE SUSP 1GM/10ML UD PO ×4 (08:18→20:38)
[2017-03-21] MEDS: GEMFIBROZIL 600 MG TAB PO (08:18)
[2017-03-21] MEDS: PANTOPRAZOLE 40MG INJ (PROTONIX) (C9113) IV (08:18)
[2017-03-21] MEDS: CETIRIZINE (ZyrTEC) 10 MG TAB PO (08:18)
[2017-03-21] MEDS: METOCLOPRAMIDE 10 MG TAB PO ×4 (08:18→20:31)
[2017-03-21] MEDS: BISACODYL 10 MG SUPP XX ×2 (08:19→20:31)
[2017-03-21] MEDS: MULTIVITAMINS/MINERALS THERAP 1 TAB PO (08:19)
[2017-03-21] MEDS: tiZANidine 4 MG TAB PO ×2 (08:19→20:31)
[2017-03-21] MEDS: AZELASTINE 137MCG NASAL SPY 30 ML (ASTELIN) ×2 (08:19→20:39)
[2017-03-21] MEDS: POTASSIUM CHLORIDE 10 MEQ SR TABLET PO (08:19)
[2017-03-21] MEDS: MIRALAX *UNIT DOSE* 17GM PACKET PO ×6 (08:20→17:04)
[2017-03-21] MEDS: LACTULOSE 20 GM/30 ML SYRUP UD PO ×3 (08:20→20:30)
[2017-03-21 12:12] LABS: BEDSIDE GLUCOSE 156 MG/DL (70-105)
[2017-03-21] MEDS: MAG SULF 1GM/100ML (MAG RUN) 1 GM in APPROPRIATE DILUENT 1 EA IV ×2 (12:24→15:29)
[2017-03-21] MEDS: MAGNESIUM CITRATE 300 ML BTL PO (13:24)
[2017-03-21] MEDS: KETOROLAC 30 MG/ML VIAL (J1885) IV (14:29)
[2017-03-21] MEDS: LORATADINE 10 MG TAB PO (15:29)
[2017-03-21 17:07] LABS: BEDSIDE GLUCOSE 203 MG/DL (70-105)
[2017-03-21] MEDS: SIMVASTATIN 20 MG TAB PO (20:31)
[2017-03-21 20:57] LABS: BEDSIDE GLUCOSE 125 MG/DL (70-105)
[2017-03-22] MEDS: SIMETHICONE 80 MG CHEW TAB PO ×5 (00:15→23:58)
[2017-03-22] MEDS: HYDROmorphone HCL 1 MG/ML SYRINGE (J1170) IV ×7 (00:16→23:57)
[2017-03-22] MEDS: LR 1,000 ML IV ×3 (01:35→23:58)
[2017-03-22] MEDS: HEPARIN SOD (PORCINE) 5000 UNITS/ML VIAL SC ×2 (05:44→14:03)
[2017-03-22 05:57] LABS: BEDSIDE GLUCOSE 160 MG/DL (70-105)
[2017-03-22 06:41] LABS: ANION GAP 7 MEQ/L (8-16); BLOOD UREA NITROGEN 5 MG/DL (7-18); CALCIUM LEVEL 9.6 MG/DL (8.5-10.1); CARBON DIOXIDE LEVEL 29 MEQ/L (21-32); CHLORIDE LEVEL 101 MEQ/L (98-107); CREATININE FOR GFR 0.44 MG/DL (0.55-1.02); GLOMERULAR FILTRATION RATE > 60.0 (>51); GLUCOSE, FASTING 172 MG/DL (70-105); MAGNESIUM LEVEL 1.6 MG/DL (1.8-2.4); SODIUM LEVEL 137 MEQ/L (136-145)
[2017-03-22 06:43] LABS: HEMATOCRIT 31.8 % (36.0-47.0); MEAN CORPUSCULAR HEMOGLOBIN 30.6 pg (27.0-33.0); MEAN CORPUSCULAR HGB CONC 31.4 g/dl (32.0-36.5); MEAN CORPUSCULAR VOLUME 97.2 fl (80.0-96.0); PLATELET COUNT, AUTOMATED 286 10^3/uL (150-450); RED BLOOD COUNT 3.27 10^6/uL (4.00-5.40); RED CELL DISTRIBUTION WIDTH 13.6 % (11.5-14.5); WHITE BLOOD COUNT 5.3 10^3/uL (4.0-10.0)
[2017-03-22] MEDS: SYMBICORT 160/4.5MCG INHALER 6GM INH ×2 (07:56→20:10)
[2017-03-22] MEDS: SUCRALFATE SUSP 1GM/10ML UD PO ×4 (08:27→20:39)
[2017-03-22] MEDS: MIRALAX *UNIT DOSE* 17GM PACKET PO ×6 (08:27→17:11)
[2017-03-22] MEDS: PANTOPRAZOLE 40MG INJ (PROTONIX) (C9113) IV (08:28)
[2017-03-22] MEDS: LACTULOSE 20 GM/30 ML SYRUP UD PO ×3 (08:28→20:39)
[2017-03-22] MEDS: CETIRIZINE (ZyrTEC) 10 MG TAB PO (08:29)
[2017-03-22] MEDS: GEMFIBROZIL 600 MG TAB PO (08:29)
[2017-03-22] MEDS: AMITRIPTYLINE 50 MG TAB PO ×2 (08:29→20:40)
[2017-03-22] MEDS: tiZANidine 4 MG TAB PO ×2 (08:29→20:40)
[2017-03-22] MEDS: LORATADINE 10 MG TAB PO (08:30)
[2017-03-22] MEDS: SENOKOT S TAB PO ×2 (08:30→20:40)
[2017-03-22] MEDS: METOCLOPRAMIDE 10 MG TAB PO ×4 (08:30→20:40)
[2017-03-22] MEDS: MULTIVITAMINS/MINERALS THERAP 1 TAB PO (08:31)
[2017-03-22] MEDS: BISACODYL 10 MG SUPP XX ×2 (08:31→20:40)
[2017-03-22] MEDS: POTASSIUM CHLORIDE 10 MEQ SR TABLET PO (08:31)
[2017-03-22] MEDS: AZELASTINE 137MCG NASAL SPY 30 ML (ASTELIN) ×2 (08:32→20:40)
[2017-03-22] MEDS: HumaLOG INSULIN (NovoLOG) PER UNIT SC ×4 (09:46→20:41)
[2017-03-22] MEDS: KETOROLAC 30 MG/ML VIAL (J1885) IV (11:53)
[2017-03-22 11:57] LABS: BEDSIDE GLUCOSE 139 MG/DL (70-105)
[2017-03-22] MEDS: ONDANSETRON 4MG/2ML VIAL (J2405) IV (12:52)
[2017-03-22] MEDS: DEXTROMETHORPHAN 60MG/10ML SUSP 90ML BTL(DELSYM) PO (14:28)
[2017-03-22] MEDS: MAG SULF 1GM/100ML (MAG RUN) 1 GM in APPROPRIATE DILUENT 1 EA IV (15:56)
[2017-03-22 17:31] LABS: BEDSIDE GLUCOSE 144 MG/DL (70-105)
[2017-03-22] MEDS: SIMVASTATIN 20 MG TAB PO (20:40)
[2017-03-22 20:50] LABS: BEDSIDE GLUCOSE 123 MG/DL (70-105)
[2017-03-23] MEDS: HYDROmorphone HCL 1 MG/ML SYRINGE (J1170) IV ×7 (03:20→22:05)
[2017-03-23] MEDS: SIMETHICONE 80 MG CHEW TAB PO ×4 (05:39→23:22)
[2017-03-23 05:44] LABS: HEMATOCRIT 31.3 % (36.0-47.0); HEMOGLOBIN 9.9 g/dl (12.0-16.0); MEAN CORPUSCULAR HEMOGLOBIN 30.9 pg (27.0-33.0); MEAN CORPUSCULAR HGB CONC 31.6 g/dl (32.0-36.5); MEAN CORPUSCULAR VOLUME 97.8 fl (80.0-96.0); PLATELET COUNT, AUTOMATED 281 10^3/uL (150-450); RED CELL DISTRIBUTION WIDTH 13.3 % (11.5-14.5); WHITE BLOOD COUNT 6.8 10^3/uL (4.0-10.0)
[2017-03-23 06:02] LABS: ANION GAP 11 MEQ/L (8-16); BLOOD UREA NITROGEN 3 MG/DL (7-18); CALCIUM LEVEL 9.2 MG/DL (8.5-10.1); CARBON DIOXIDE LEVEL 24 MEQ/L (21-32); CHLORIDE LEVEL 103 MEQ/L (98-107); CREATININE FOR GFR 0.43 MG/DL (0.55-1.02); GLOMERULAR FILTRATION RATE > 60.0 (>51); GLUCOSE, FASTING 169 MG/DL (70-105); MAGNESIUM LEVEL 1.5 MG/DL (1.8-2.4); POTASSIUM SERUM 3.7 MEQ/L (3.5-5.1); SODIUM LEVEL 138 MEQ/L (136-145)
[2017-03-23] MEDS: SUCRALFATE SUSP 1GM/10ML UD PO ×4 (06:58→21:40)
[2017-03-23] MEDS: HumaLOG INSULIN (NovoLOG) PER UNIT SC ×4 (06:58→21:00)
[2017-03-23] MEDS: MIRALAX *UNIT DOSE* 17GM PACKET PO ×5 (06:58→17:12)
[2017-03-23] MEDS: METOCLOPRAMIDE 10 MG TAB PO ×4 (06:59→21:42)
[2017-03-23] MEDS: GEMFIBROZIL 600 MG TAB PO (08:00)
[2017-03-23] MEDS: tiZANidine 4 MG TAB PO ×2 (08:00→21:42)
[2017-03-23] MEDS: SENOKOT S TAB PO ×2 (08:00→21:40)
[2017-03-23] MEDS: BISACODYL 10 MG SUPP XX ×2 (08:01→21:45)
[2017-03-23] MEDS: AMITRIPTYLINE 50 MG TAB PO ×2 (08:02→21:41)
[2017-03-23] MEDS: CETIRIZINE (ZyrTEC) 10 MG TAB PO (08:02)
[2017-03-23] MEDS: MULTIVITAMINS/MINERALS THERAP 1 TAB PO (08:02)
[2017-03-23] MEDS: LORATADINE 10 MG TAB PO (08:02)
[2017-03-23] MEDS: LACTULOSE 20 GM/30 ML SYRUP UD PO ×3 (08:02→21:41)
[2017-03-23] MEDS: POTASSIUM CHLORIDE 10 MEQ SR TABLET PO (08:02)
[2017-03-23] MEDS: SODIUM CHLORIDE 0.9% INJ 10 ML SYR IV (08:03)
[2017-03-23] MEDS: PANTOPRAZOLE 40MG INJ (PROTONIX) (C9113) IV (08:03)
[2017-03-23] MEDS: AZELASTINE 137MCG NASAL SPY 30 ML (ASTELIN) ×2 (08:03→21:46)
[2017-03-23] MEDS: SYMBICORT 160/4.5MCG INHALER 6GM INH ×2 (08:10→20:02)
[2017-03-23] MEDS: ONDANSETRON 4MG/2ML VIAL (J2405) IV ×2 (09:35→22:34)
[2017-03-23] MEDS: MAG SULF 1GM/100ML (MAG RUN) 1 GM in APPROPRIATE DILUENT 1 EA IV ×4 (10:31→18:16)
[2017-03-23 12:09] LABS: BEDSIDE GLUCOSE 155 MG/DL (70-105)
[2017-03-23] MEDS: HEPARIN SOD (PORCINE) 5000 UNITS/ML VIAL SC ×2 (15:38→21:46)
[2017-03-23] MEDS: DEXTROMETHORPHAN 60MG/10ML SUSP 90ML BTL(DELSYM) PO (16:12)
[2017-03-23 17:32] LABS: BEDSIDE GLUCOSE 182 MG/DL (70-105)
[2017-03-23] MEDS: KETOROLAC TROMETHAMINE 10 MG TAB PO (18:30)
[2017-03-23 21:10] LABS: BEDSIDE GLUCOSE 176 MG/DL (70-105)
[2017-03-23] MEDS: SIMVASTATIN 20 MG TAB PO (21:40)
[2017-03-23] MEDS: LR 1,000 ML IV (21:51)
[2017-03-24] MEDS: HYDROmorphone HCL 1 MG/ML SYRINGE (J1170) IV ×7 (01:00→21:39)
[2017-03-24] MEDS: HEPARIN SOD (PORCINE) 5000 UNITS/ML VIAL SC ×3 (05:00→21:39)
[2017-03-24] MEDS: SIMETHICONE 80 MG CHEW TAB PO ×3 (05:00→17:35)
[2017-03-24 05:24] LABS: HEMATOCRIT 31.9 % (36.0-47.0); MEAN CORPUSCULAR HGB CONC 31.3 g/dl (32.0-36.5); MEAN CORPUSCULAR VOLUME 95.8 fl (80.0-96.0); PLATELET COUNT, AUTOMATED 299 10^3/uL (150-450); RED BLOOD COUNT 3.33 10^6/uL (4.00-5.40); RED CELL DISTRIBUTION WIDTH 13.2 % (11.5-14.5); WHITE BLOOD COUNT 6.2 10^3/uL (4.0-10.0)
[2017-03-24 05:45] LABS: ANION GAP 11 MEQ/L (8-16); BLOOD UREA NITROGEN 2 MG/DL (7-18); CALCIUM LEVEL 9.1 MG/DL (8.5-10.1); CARBON DIOXIDE LEVEL 23 MEQ/L (21-32); CHLORIDE LEVEL 101 MEQ/L (98-107); CREATININE FOR GFR 0.43 MG/DL (0.55-1.02); GLOMERULAR FILTRATION RATE > 60.0 (>51); GLUCOSE, FASTING 180 MG/DL (70-105); MAGNESIUM LEVEL 1.7 MG/DL (1.8-2.4); POTASSIUM SERUM 3.7 MEQ/L (3.5-5.1); SODIUM LEVEL 135 MEQ/L (136-145)
[2017-03-24] MEDS: SYMBICORT 160/4.5MCG INHALER 6GM INH ×2 (07:45→19:34)
[2017-03-24] MEDS: HumaLOG INSULIN (NovoLOG) PER UNIT SC ×3 (08:00→17:36)
[2017-03-24] MEDS: PANTOPRAZOLE 40MG INJ (PROTONIX) (C9113) IV (08:01)
[2017-03-24] MEDS: LACTULOSE 20 GM/30 ML SYRUP UD PO ×3 (08:01→21:38)
[2017-03-24] MEDS: MULTIVITAMINS/MINERALS THERAP 1 TAB PO (08:02)
[2017-03-24] MEDS: AMITRIPTYLINE 50 MG TAB PO ×2 (08:02→21:39)
[2017-03-24] MEDS: METOCLOPRAMIDE 10 MG TAB PO ×4 (08:02→21:39)
[2017-03-24] MEDS: LORATADINE 10 MG TAB PO (08:02)
[2017-03-24] MEDS: SENOKOT S TAB PO ×2 (08:02→21:40)
[2017-03-24] MEDS: CETIRIZINE (ZyrTEC) 10 MG TAB PO (08:03)
[2017-03-24] MEDS: GEMFIBROZIL 600 MG TAB PO (08:03)
[2017-03-24] MEDS: tiZANidine 4 MG TAB PO ×2 (08:03→21:40)
[2017-03-24] MEDS: SODIUM CHLORIDE 0.9% INJ 10 ML SYR IV (08:04)
[2017-03-24] MEDS: AZELASTINE 137MCG NASAL SPY 30 ML (ASTELIN) ×2 (08:04→21:00)
[2017-03-24] MEDS: POTASSIUM CHLORIDE 10 MEQ SR TABLET PO (08:04)
[2017-03-24] MEDS: BISACODYL 10 MG SUPP XX ×2 (08:06→21:40)
[2017-03-24] MEDS: MIRALAX *UNIT DOSE* 17GM PACKET PO ×3 (08:07→17:34)
[2017-03-24] MEDS: SUCRALFATE SUSP 1GM/10ML UD PO ×4 (08:07→21:38)
[2017-03-24] MEDS: ONDANSETRON 4MG/2ML VIAL (J2405) IV ×2 (10:35→20:04)
[2017-03-24 11:47] LABS: BEDSIDE GLUCOSE 260 MG/DL (70-105)
[2017-03-24] MEDS: DEXTROMETHORPHAN 60MG/10ML SUSP 90ML BTL(DELSYM) PO (13:39)
[2017-03-24 16:57] LABS: BEDSIDE GLUCOSE 161 MG/DL (70-105)
[2017-03-24] MEDS ORDERED: GLUCAGON FOR INJ 1 MG VIAL (J1610) SC (17:15)
[2017-03-24] MEDS ORDERED: GLUCOSE 4 GM CHEW TABLET PO (17:15)
[2017-03-24] MEDS ORDERED: DEXTROSE 50% 50 ML SYRINGE IV (17:15)
[2017-03-24] MEDS: MULTIVITAMIN -ADULT INJECTION 10 ML, CR/CU/SE/MN/ZN INJ 1 ML in AMINO AC/ELECTROLYTE/DE... IV (18:21)
[2017-03-24] MEDS: CHLORASEPTIC SPRAY MT (21:38)
[2017-03-24] MEDS: SIMVASTATIN 20 MG TAB PO (21:40)
[2017-03-24] MEDS: LR 1,000 ML IV (21:40)
[2017-03-25 00:16] LABS: BEDSIDE GLUCOSE 319 MG/DL (70-105)
[2017-03-25] MEDS: SIMETHICONE 80 MG CHEW TAB PO ×5 (00:44→23:55)
[2017-03-25] MEDS: HYDROmorphone HCL 1 MG/ML SYRINGE (J1170) IV ×7 (00:45→21:40)
[2017-03-25] MEDS: HumaLOG INSULIN (NovoLOG) PER UNIT SC ×5 (00:45→23:56)
[2017-03-25] MEDS: KETOROLAC TROMETHAMINE 10 MG TAB PO (01:50)
[2017-03-25 06:19] LABS: BEDSIDE GLUCOSE 287 MG/DL (70-105)
[2017-03-25] MEDS: HEPARIN SOD (PORCINE) 5000 UNITS/ML VIAL SC ×3 (06:23→21:40)
[2017-03-25] MEDS: SYMBICORT 160/4.5MCG INHALER 6GM INH ×2 (07:16→19:50)
[2017-03-25] MEDS: SUCRALFATE SUSP 1GM/10ML UD PO ×4 (07:54→20:11)
[2017-03-25] MEDS: GEMFIBROZIL 600 MG TAB PO (07:55)
[2017-03-25] MEDS: MULTIVITAMINS/MINERALS THERAP 1 TAB PO (07:55)
[2017-03-25] MEDS: LORATADINE 10 MG TAB PO (07:55)
[2017-03-25] MEDS: AMITRIPTYLINE 50 MG TAB PO ×2 (07:55→20:12)
[2017-03-25] MEDS: CETIRIZINE (ZyrTEC) 10 MG TAB PO (07:55)
[2017-03-25] MEDS: METOCLOPRAMIDE 10 MG TAB PO ×4 (07:55→20:12)
[2017-03-25] MEDS: PANTOPRAZOLE 40MG INJ (PROTONIX) (C9113) IV (07:55)
[2017-03-25] MEDS: MIRALAX *UNIT DOSE* 17GM PACKET PO ×3 (07:55→18:15)
[2017-03-25] MEDS: POTASSIUM CHLORIDE 10 MEQ SR TABLET PO (07:56)
[2017-03-25] MEDS: SENOKOT S TAB PO ×2 (07:56→20:12)
[2017-03-25] MEDS: tiZANidine 4 MG TAB PO ×2 (07:56→20:12)
[2017-03-25] MEDS: AZELASTINE 137MCG NASAL SPY 30 ML (ASTELIN) ×2 (07:57→20:12)
[2017-03-25] MEDS: SODIUM CHLORIDE 0.9% INJ 10 ML SYR IV (07:57)
[2017-03-25] MEDS: BISACODYL 10 MG SUPP XX ×2 (07:57→20:12)
[2017-03-25] MEDS: LACTULOSE 20 GM/30 ML SYRUP UD PO ×3 (07:58→20:12)
[2017-03-25] MEDS: CHLORASEPTIC SPRAY MT (07:58)
[2017-03-25 08:15] LABS: HEMATOCRIT 31.8 % (36.0-47.0); HEMOGLOBIN 10.1 g/dl (12.0-16.0); MEAN CORPUSCULAR HEMOGLOBIN 30.7 pg (27.0-33.0); MEAN CORPUSCULAR HGB CONC 31.8 g/dl (32.0-36.5); MEAN CORPUSCULAR VOLUME 96.7 fl (80.0-96.0); PLATELET COUNT, AUTOMATED 323 10^3/uL (150-450); RED BLOOD COUNT 3.29 10^6/uL (4.00-5.40); RED CELL DISTRIBUTION WIDTH 13.4 % (11.5-14.5); WHITE BLOOD COUNT 5.7 10^3/uL (4.0-10.0)
[2017-03-25 09:02] LABS: ANION GAP 11 MEQ/L (8-16); BLOOD UREA NITROGEN 5 MG/DL (7-18); CARBON DIOXIDE LEVEL 24 MEQ/L (21-32); CHLORIDE LEVEL 103 MEQ/L (98-107); CREATININE FOR GFR 0.61 MG/DL (0.55-1.02); GLOMERULAR FILTRATION RATE > 60.0 (>51); GLUCOSE, FASTING 272 MG/DL (70-105); MAGNESIUM LEVEL 1.7 MG/DL (1.8-2.4); POTASSIUM SERUM 3.8 MEQ/L (3.5-5.1); SODIUM LEVEL 138 MEQ/L (136-145)
[2017-03-25 12:26] LABS: BEDSIDE GLUCOSE 364 MG/DL (70-105)
[2017-03-25 17:20] LABS: BEDSIDE GLUCOSE 291 MG/DL (70-105)
[2017-03-25] MEDS: LR 1,000 ML IV (18:06)
[2017-03-25] MEDS: DEXTROMETHORPHAN 60MG/10ML SUSP 90ML BTL(DELSYM) PO (18:15)
[2017-03-25] MEDS: AMINO AC/ELECTROLYTE/DEX/CALC 2,566 ML IV (20:11)
[2017-03-25] MEDS: SIMVASTATIN 20 MG TAB PO (20:12)
[2017-03-25 23:26] LABS: BEDSIDE GLUCOSE 332 MG/DL (70-105)
[2017-03-26] MEDS: HYDROmorphone HCL 1 MG/ML SYRINGE (J1170) IV ×7 (00:50→20:37)
[2017-03-26] MEDS: ONDANSETRON 4MG/2ML VIAL (J2405) IV ×2 (01:40→17:25)
[2017-03-26 05:28] LABS: HEMATOCRIT 31.6 % (36.0-47.0); HEMOGLOBIN 10.1 g/dl (12.0-16.0); MEAN CORPUSCULAR HEMOGLOBIN 30.8 pg (27.0-33.0); MEAN CORPUSCULAR VOLUME 96.3 fl (80.0-96.0); PLATELET COUNT, AUTOMATED 326 10^3/uL (150-450); RED BLOOD COUNT 3.28 10^6/uL (4.00-5.40); RED CELL DISTRIBUTION WIDTH 13.3 % (11.5-14.5); WHITE BLOOD COUNT 5.6 10^3/uL (4.0-10.0)
[2017-03-26 06:06] LABS: ANION GAP 9 MEQ/L (8-16); BLOOD UREA NITROGEN 6 MG/DL (7-18); CALCIUM LEVEL 9.5 MG/DL (8.5-10.1); CARBON DIOXIDE LEVEL 25 MEQ/L (21-32); CHLORIDE LEVEL 103 MEQ/L (98-107); CREATININE FOR GFR 0.59 MG/DL (0.55-1.02); GLOMERULAR FILTRATION RATE > 60.0 (>51); GLUCOSE, FASTING 321 MG/DL (70-105); MAGNESIUM LEVEL 1.5 MG/DL (1.8-2.4); POTASSIUM SERUM 4.1 MEQ/L (3.5-5.1); SODIUM LEVEL 137 MEQ/L (136-145)
[2017-03-26] MEDS: HEPARIN SOD (PORCINE) 5000 UNITS/ML VIAL SC ×3 (06:20→21:48)
[2017-03-26] MEDS: SIMETHICONE 80 MG CHEW TAB PO ×3 (06:20→17:25)
[2017-03-26] MEDS: HumaLOG INSULIN (NovoLOG) PER UNIT SC ×3 (06:21→17:25)
[2017-03-26] MEDS: DEXTROMETHORPHAN 60MG/10ML SUSP 90ML BTL(DELSYM) PO (06:21)
[2017-03-26] MEDS: SYMBICORT 160/4.5MCG INHALER 6GM INH ×2 (07:22→21:00)
[2017-03-26] MEDS: MIRALAX *UNIT DOSE* 17GM PACKET PO ×3 (08:15→17:24)
[2017-03-26] MEDS: PANTOPRAZOLE 40MG INJ (PROTONIX) (C9113) IV (08:15)
[2017-03-26] MEDS: SUCRALFATE SUSP 1GM/10ML UD PO ×4 (08:15→20:35)
[2017-03-26] MEDS: LACTULOSE 20 GM/30 ML SYRUP UD PO ×3 (08:15→20:35)
[2017-03-26] MEDS: GEMFIBROZIL 600 MG TAB PO (08:16)
[2017-03-26] MEDS: METOCLOPRAMIDE 10 MG TAB PO ×4 (08:16→20:36)
[2017-03-26] MEDS: tiZANidine 4 MG TAB PO ×2 (08:16→20:36)
[2017-03-26] MEDS: MAG SULF 1GM/100ML (MAG RUN) 1 GM in APPROPRIATE DILUENT 1 EA IV ×3 (08:16→11:04)
[2017-03-26] MEDS: AMITRIPTYLINE 50 MG TAB PO ×2 (08:16→20:36)
[2017-03-26] MEDS: SENOKOT S TAB PO ×2 (08:16→20:36)
[2017-03-26] MEDS: CETIRIZINE (ZyrTEC) 10 MG TAB PO (08:16)
[2017-03-26] MEDS: POTASSIUM CHLORIDE 10 MEQ SR TABLET PO (08:17)
[2017-03-26] MEDS: MULTIVITAMINS/MINERALS THERAP 1 TAB PO (08:17)
[2017-03-26] MEDS: BISACODYL 10 MG SUPP XX ×2 (08:17→20:35)
[2017-03-26] MEDS: LORATADINE 10 MG TAB PO (08:17)
[2017-03-26] MEDS: SODIUM CHLORIDE 0.9% INJ 10 ML SYR IV (08:20)
[2017-03-26] MEDS: AZELASTINE 137MCG NASAL SPY 30 ML (ASTELIN) ×2 (08:20→20:38)
[2017-03-26 12:22] LABS: BEDSIDE GLUCOSE 464 MG/DL (70-105)
[2017-03-26 16:58] LABS: BEDSIDE GLUCOSE 402 MG/DL (70-105)
[2017-03-26 17:19] LABS: ANION GAP 10 MEQ/L (8-16); BLOOD UREA NITROGEN 6 MG/DL (7-18); CALCIUM LEVEL 9.3 MG/DL (8.5-10.1); CARBON DIOXIDE LEVEL 23 MEQ/L (21-32); CHLORIDE LEVEL 100 MEQ/L (98-107); CREATININE FOR GFR 0.78 MG/DL (0.55-1.02); GLOMERULAR FILTRATION RATE > 60.0 (>51); MAGNESIUM LEVEL 2.1 MG/DL (1.8-2.4); POTASSIUM SERUM 4.2 MEQ/L (3.5-5.1); SODIUM LEVEL 133 MEQ/L (136-145)
[2017-03-26 17:22] LABS: GLUCOSE, FASTING 417 MG/DL (70-105)
[2017-03-26] MEDS: AMINO AC/ELECTROLYTE/DEX/CALC 2,566 ML IV (17:26)
[2017-03-26] MEDS: SIMVASTATIN 20 MG TAB PO (20:36)
[2017-03-26] MEDS: LR 1,000 ML IV (20:38)
[2017-03-27 00:12] LABS: BEDSIDE GLUCOSE 342 MG/DL (70-105)
[2017-03-27] MEDS: HYDROmorphone HCL 1 MG/ML SYRINGE (J1170) IV ×7 (00:34→22:06)
[2017-03-27] MEDS: HumaLOG INSULIN (NovoLOG) PER UNIT SC ×5 (00:35→23:50)
[2017-03-27] MEDS: SIMETHICONE 80 MG CHEW TAB PO ×5 (00:35→23:51)
[2017-03-27] MEDS: DEXTROMETHORPHAN 60MG/10ML SUSP 90ML BTL(DELSYM) PO ×2 (00:36→12:59)
[2017-03-27 05:37] LABS: BEDSIDE GLUCOSE 298 MG/DL (70-105)
[2017-03-27] MEDS: HEPARIN SOD (PORCINE) 5000 UNITS/ML VIAL SC ×3 (06:05→22:06)
[2017-03-27 06:45] LABS: HEMOGLOBIN 10.4 g/dl (12.0-16.0); MEAN CORPUSCULAR HEMOGLOBIN 31.4 pg (27.0-33.0); MEAN CORPUSCULAR HGB CONC 32.5 g/dl (32.0-36.5); MEAN CORPUSCULAR VOLUME 96.7 fl (80.0-96.0); PLATELET COUNT, AUTOMATED 318 10^3/uL (150-450); RED BLOOD COUNT 3.31 10^6/uL (4.00-5.40); RED CELL DISTRIBUTION WIDTH 13.2 % (11.5-14.5); WHITE BLOOD COUNT 5.5 10^3/uL (4.0-10.0)
[2017-03-27 07:13] LABS: ANION GAP 6 MEQ/L (8-16); BLOOD UREA NITROGEN 6 MG/DL (7-18); CALCIUM LEVEL 9.5 MG/DL (8.5-10.1); CARBON DIOXIDE LEVEL 29 MEQ/L (21-32); CHLORIDE LEVEL 100 MEQ/L (98-107); CREATININE FOR GFR 0.61 MG/DL (0.55-1.02); GLOMERULAR FILTRATION RATE > 60.0 (>51); GLUCOSE, FASTING 323 MG/DL (70-105); MAGNESIUM LEVEL 1.6 MG/DL (1.8-2.4); POTASSIUM SERUM 4.1 MEQ/L (3.5-5.1); SODIUM LEVEL 135 MEQ/L (136-145)
[2017-03-27] MEDS: MIRALAX *UNIT DOSE* 17GM PACKET PO ×3 (07:21→17:26)
[2017-03-27] MEDS: SUCRALFATE SUSP 1GM/10ML UD PO ×4 (07:21→20:25)
[2017-03-27] MEDS: METOCLOPRAMIDE 10 MG TAB PO ×4 (07:22→20:26)
[2017-03-27] MEDS: SYMBICORT 160/4.5MCG INHALER 6GM INH ×2 (07:44→19:45)
[2017-03-27] MEDS: PANTOPRAZOLE 40MG INJ (PROTONIX) (C9113) IV (08:35)
[2017-03-27] MEDS: GEMFIBROZIL 600 MG TAB PO (08:36)
[2017-03-27] MEDS: CETIRIZINE (ZyrTEC) 10 MG TAB PO (08:36)
[2017-03-27] MEDS: LACTULOSE 20 GM/30 ML SYRUP UD PO ×3 (08:36→20:25)
[2017-03-27] MEDS: AZELASTINE 137MCG NASAL SPY 30 ML (ASTELIN) ×2 (08:36→20:27)
[2017-03-27] MEDS: SENOKOT S TAB PO ×2 (08:36→20:26)
[2017-03-27] MEDS: tiZANidine 4 MG TAB PO ×2 (08:37→20:26)
[2017-03-27] MEDS: AMITRIPTYLINE 50 MG TAB PO ×2 (08:37→20:25)
[2017-03-27] MEDS: LORATADINE 10 MG TAB PO (08:37)
[2017-03-27] MEDS: POTASSIUM CHLORIDE 10 MEQ SR TABLET PO (08:38)
[2017-03-27] MEDS: MULTIVITAMINS/MINERALS THERAP 1 TAB PO (08:38)
[2017-03-27] MEDS: BISACODYL 10 MG SUPP XX ×2 (08:39→20:26)
[2017-03-27] MEDS: SODIUM CHLORIDE 0.9% INJ 10 ML SYR IV (08:39)
[2017-03-27 13:17] LABS: BEDSIDE GLUCOSE CONFIRMATION 636 MG/DL (LESS THAN 200)
[2017-03-27] MEDS: guaiFENesin ER 600 MG TAB PO ×2 (14:27→20:27)
[2017-03-27] MEDS: MAG SULF 1GM/100ML (MAG RUN) 1 GM in APPROPRIATE DILUENT 1 EA IV (14:29)
[2017-03-27] MEDS: LR 1,000 ML IV (15:32)
[2017-03-27 16:48] LABS: BEDSIDE GLUCOSE 458 MG/DL (70-105)
[2017-03-27] MEDS: AMINO AC/ELECTROLYTE/DEX/CALC 2,566 ML IV (18:00)
[2017-03-27] MEDS: SIMVASTATIN 20 MG TAB PO (20:25)
[2017-03-27] MEDS: LEVEMIR (INSULIN DETEMIR) 1 UNITS/0.01ML SC (20:26)
[2017-03-27 23:43] LABS: BEDSIDE GLUCOSE 313 MG/DL (70-105)
[2017-03-28] MEDS: FORMOTEROL FUMARATE 20 MCG/2 ML INHALATION SOLUTION (PERFOROMIST) INH ×3 (00:37→23:02)
[2017-03-28] MEDS: HYDROmorphone HCL 1 MG/ML SYRINGE (J1170) IV ×6 (01:53→19:07)
[2017-03-28] MEDS: DEXTROMETHORPHAN 60MG/10ML SUSP 90ML BTL(DELSYM) PO (02:47)
[2017-03-28] MEDS: KETOROLAC TROMETHAMINE 10 MG TAB PO (03:56)
[2017-03-28] MEDS: LR 1,000 ML IV (05:16)
[2017-03-28] MEDS: SIMETHICONE 80 MG CHEW TAB PO ×3 (05:16→18:18)
[2017-03-28] MEDS: HEPARIN SOD (PORCINE) 5000 UNITS/ML VIAL SC ×3 (05:16→22:56)
[2017-03-28] MEDS: HumaLOG INSULIN (NovoLOG) PER UNIT SC ×3 (05:27→18:19)
[2017-03-28 05:31] LABS: BEDSIDE GLUCOSE 323 MG/DL (70-105)
[2017-03-28 06:38] LABS: HEMATOCRIT 30.1 % (36.0-47.0); MEAN CORPUSCULAR HEMOGLOBIN 30.9 pg (27.0-33.0); MEAN CORPUSCULAR HGB CONC 33.2 g/dl (32.0-36.5); MEAN CORPUSCULAR VOLUME 92.9 fl (80.0-96.0); PLATELET COUNT, AUTOMATED 304 10^3/uL (150-450); RED BLOOD COUNT 3.24 10^6/uL (4.00-5.40); RED CELL DISTRIBUTION WIDTH 13.2 % (11.5-14.5); WHITE BLOOD COUNT 12.9 10^3/uL (4.0-10.0)
[2017-03-28 06:52] LABS: ANION GAP 10 MEQ/L (8-16); BLOOD UREA NITROGEN 10 MG/DL (7-18); CARBON DIOXIDE LEVEL 22 MEQ/L (21-32); CHLORIDE LEVEL 98 MEQ/L (98-107); CREATININE FOR GFR 0.68 MG/DL (0.55-1.02); GLOMERULAR FILTRATION RATE > 60.0 (>51); GLUCOSE, FASTING 334 MG/DL (70-105); MAGNESIUM LEVEL 1.6 MG/DL (1.8-2.4); POTASSIUM SERUM 3.5 MEQ/L (3.5-5.1); SODIUM LEVEL 130 MEQ/L (136-145)
[2017-03-28] MEDS: SYMBICORT 160/4.5MCG INHALER 6GM INH ×2 (07:48→19:51)
[2017-03-28] MEDS: SUCRALFATE SUSP 1GM/10ML UD PO ×4 (08:26→20:38)
[2017-03-28] MEDS: PANTOPRAZOLE 40MG INJ (PROTONIX) (C9113) IV (08:26)
[2017-03-28] MEDS: LACTULOSE 20 GM/30 ML SYRUP UD PO ×3 (08:26→20:38)
[2017-03-28] MEDS: CETIRIZINE (ZyrTEC) 10 MG TAB PO (08:27)
[2017-03-28] MEDS: LORATADINE 10 MG TAB PO (08:27)
[2017-03-28] MEDS: GEMFIBROZIL 600 MG TAB PO (08:27)
[2017-03-28] MEDS: tiZANidine 4 MG TAB PO ×2 (08:28→20:39)
[2017-03-28] MEDS: POTASSIUM CHLORIDE 10 MEQ SR TABLET PO (08:28)
[2017-03-28] MEDS: METOCLOPRAMIDE 10 MG TAB PO ×4 (08:28→20:40)
[2017-03-28] MEDS: AMITRIPTYLINE 50 MG TAB PO ×2 (08:29→20:40)
[2017-03-28] MEDS: MULTIVITAMINS/MINERALS THERAP 1 TAB PO (08:29)
[2017-03-28] MEDS: guaiFENesin ER 600 MG TAB PO (08:29)
[2017-03-28] MEDS: SENOKOT S TAB PO ×2 (08:29→20:39)
[2017-03-28] MEDS: BISACODYL 10 MG SUPP XX ×2 (08:30→20:39)
[2017-03-28] MEDS: AZELASTINE 137MCG NASAL SPY 30 ML (ASTELIN) ×2 (08:30→20:40)
[2017-03-28] MEDS: MIRALAX *UNIT DOSE* 17GM PACKET PO ×3 (08:35→18:17)
[2017-03-28] MEDS: SODIUM CHLORIDE 0.9% INJ 10 ML SYR IV (08:36)
[2017-03-28] MEDS: MAG SULF 1GM/100ML (MAG RUN) 1 GM in APPROPRIATE DILUENT 1 EA IV (10:31)
[2017-03-28 10:59] LABS: BEDSIDE GLUCOSE 589 MG/DL (70-105)
[2017-03-28 10:59] LABS: BEDSIDE GLUCOSE 582 MG/DL (70-105)
[2017-03-28 12:20] LABS: BEDSIDE GLUCOSE 380 MG/DL (70-105)
[2017-03-28] MEDS: TUSSICAPS ER 10/8MG CAPSULE PO (15:41)
[2017-03-28] MEDS: MULTIVITAMIN -ADULT INJECTION 10 ML, CR/CU/SE/MN/ZN INJ 1 ML in AMINO AC/ELECTROLYTE/DE... IV (18:17)
[2017-03-28 18:28] LABS: BEDSIDE GLUCOSE 355 MG/DL (70-105)
[2017-03-28] MEDS: SIMVASTATIN 20 MG TAB PO (20:39)
[2017-03-28] MEDS: ACETAMINOPHEN TAB 650MG DOSE (2X325MG) PO (20:39)
[2017-03-28] MEDS: LEVEMIR (INSULIN DETEMIR) 1 UNITS/0.01ML SC (20:41)
[2017-03-29] MEDS: SIMETHICONE 80 MG CHEW TAB PO ×4 (00:16→17:43)
[2017-03-29] MEDS: HumaLOG INSULIN (NovoLOG) PER UNIT SC ×5 (00:17→17:45)
[2017-03-29] MEDS: ACETAMINOPHEN TAB 650MG DOSE (2X325MG) PO ×2 (00:55→20:46)
[2017-03-29 02:09] LABS: BEDSIDE GLUCOSE 326 MG/DL (70-105)
[2017-03-29] MEDS: KETOROLAC 30 MG/ML VIAL (J1885) IV (03:06)
[2017-03-29] MEDS: HEPARIN SOD (PORCINE) 5000 UNITS/ML VIAL SC ×3 (06:09→22:00)
[2017-03-29 06:25] LABS: HEMATOCRIT 29.7 % (36.0-47.0); HEMOGLOBIN 9.7 g/dl (12.0-16.0); MEAN CORPUSCULAR HEMOGLOBIN 30.6 pg (27.0-33.0); MEAN CORPUSCULAR HGB CONC 32.7 g/dl (32.0-36.5); MEAN CORPUSCULAR VOLUME 93.7 fl (80.0-96.0); PLATELET COUNT, AUTOMATED 293 10^3/uL (150-450); RED BLOOD COUNT 3.17 10^6/uL (4.00-5.40); RED CELL DISTRIBUTION WIDTH 13.3 % (11.5-14.5); WHITE BLOOD COUNT 14.7 10^3/uL (4.0-10.0)
[2017-03-29 06:25] LABS: BEDSIDE GLUCOSE 307 MG/DL (70-105)
[2017-03-29 07:03] LABS: ANION GAP 8 MEQ/L (8-16); BLOOD UREA NITROGEN 9 MG/DL (7-18); CALCIUM LEVEL 9.9 MG/DL (8.5-10.1); CARBON DIOXIDE LEVEL 25 MEQ/L (21-32); CHLORIDE LEVEL 99 MEQ/L (98-107); CREATININE FOR GFR 0.55 MG/DL (0.55-1.02); GLOMERULAR FILTRATION RATE > 60.0 (>51); GLUCOSE, FASTING 299 MG/DL (70-105); MAGNESIUM LEVEL 1.8 MG/DL (1.8-2.4); POTASSIUM SERUM 3.8 MEQ/L (3.5-5.1); SODIUM LEVEL 132 MEQ/L (136-145)
[2017-03-29] MEDS: SYMBICORT 160/4.5MCG INHALER 6GM INH ×2 (07:20→19:44)
[2017-03-29] MEDS: MIRALAX *UNIT DOSE* 17GM PACKET PO ×3 (08:06→17:43)
[2017-03-29] MEDS: SUCRALFATE SUSP 1GM/10ML UD PO ×4 (08:06→20:44)
[2017-03-29] MEDS: LACTULOSE 20 GM/30 ML SYRUP UD PO ×3 (08:06→20:44)
[2017-03-29] MEDS: PANTOPRAZOLE 40MG INJ (PROTONIX) (C9113) IV (08:07)
[2017-03-29] MEDS: POTASSIUM CHLORIDE 10 MEQ SR TABLET PO (08:08)
[2017-03-29] MEDS: CETIRIZINE (ZyrTEC) 10 MG TAB PO (08:08)
[2017-03-29] MEDS: MULTIVITAMINS/MINERALS THERAP 1 TAB PO (08:08)
[2017-03-29] MEDS: LORATADINE 10 MG TAB PO (08:09)
[2017-03-29] MEDS: BISACODYL 10 MG SUPP XX ×2 (08:09→20:47)
[2017-03-29] MEDS: METOCLOPRAMIDE 10 MG TAB PO ×4 (08:09→20:45)
[2017-03-29] MEDS: SENOKOT S TAB PO ×2 (08:09→20:44)
[2017-03-29] MEDS: GEMFIBROZIL 600 MG TAB PO (08:09)
[2017-03-29] MEDS: AMITRIPTYLINE 50 MG TAB PO ×2 (08:09→20:45)
[2017-03-29] MEDS: tiZANidine 4 MG TAB PO ×2 (08:10→20:45)
[2017-03-29] MEDS: SODIUM CHLORIDE 0.9% INJ 10 ML SYR IV (08:10)
[2017-03-29] MEDS: AZELASTINE 137MCG NASAL SPY 30 ML (ASTELIN) ×2 (08:11→20:46)
[2017-03-29] MEDS ORDERED: TUSSICAPS ER 10/8MG CAPSULE PO (09:00)
[2017-03-29] MEDS: FORMOTEROL FUMARATE 20 MCG/2 ML INHALATION SOLUTION (PERFOROMIST) INH (09:51)
[2017-03-29 10:21] LABS: ABG HCO3 18.9 MEQ/L (22.0-26.0); ABG O2 SATURATION 96.8 % (95.0-99.0); ABG PARTIAL PRESSURE CO2 27.3 mmHg (35.0-45.0); ABG PARTIAL PRESSURE O2 84.8 mmHg (75.0-100.0); ABG STANDARD HCO3 21.1 MEQ/L (22.0-26.0); ABG TOTAL CO2 19.7 MEQ/L (22.0-29.0); ABG pH (ARTERIAL) 7.458 UNITS (7.350-7.450)
[2017-03-29 11:02] LABS: BASO % 0.3 % (0.0-1.0); EOS # 0.1 10^3/uL (0.0-0.50); EOS % 0.6 % (0.0-3.0); IMMATURE GRANULOCYTE # 0.1 10^3/uL (0-0); IMMATURE GRANULOCYTE % 0.8 % (0-0); LYMPH # 0.9 10^3/uL (1.5-4.5); LYMPH % 6.4 % (24.0-44.0); MONO # 1.3 10^3/uL (0.0-0.8); MONO % 8.9 % (0.0-5.0)
[2017-03-29 11:08] LABS: DIFF SLIDE NUMBER 118
[2017-03-29 11:09] LABS: PLATELET ESTIMATE NORMAL (NORMAL)
[2017-03-29 11:19] LABS: LACTIC ACID SEPSIS PROTOCOL 1.8 MMOL/L (0.4-2.0)
[2017-03-29 11:22] LABS: APPEARANCE, URINE HAZY (CLEAR); BACTERIA, URINE AUTO NEGATIVE (NEGATIVE); BILIRUBIN, URINE AUTO NEGATIVE (NEGATIVE); BLOOD, URINE BLOOD NEGATIVE (NEGATIVE); COLOR, URINE AMBER (YELLOW); GLUCOSE, URINE (UA) AUTO 3+ mg/dL (NEGATIVE); KETONE, URINE AUTO TRACE mg/dL (NEGATIVE); LEUKOCYTE ESTERASE, URINE AUTO 1+ (NEGATIVE); MUCUS, URINE SMALL (NEGATIVE); NITRITE, URINE AUTO NEGATIVE (NEGATIVE); PROTEIN, URINE AUTO 1+ mg/dL (NEGATIVE); RBC, URINE AUTO 2 /HPF (0-3); SPECIFIC GRAVITY URINE AUTO 1.023 (1.002-1.035); SQUAMOUS EPITHELIAL CELL UR AU 1 /HPF (0-6); UROBILINOGEN, URINE AUTO 0.2 mg/dL (0.0-2.0); WBC, URINE AUTO 20 /HPF (0-3)
[2017-03-29 12:19] LABS: BEDSIDE GLUCOSE 372 MG/DL (70-105)
[2017-03-29 14:45] LABS: ABG BASE EXCESS -2.6 (-2.0-2.0); ABG HCO3 19.9 MEQ/L (22.0-26.0); ABG O2 SATURATION 94.7 % (95.0-99.0); ABG PARTIAL PRESSURE CO2 27.4 mmHg (35.0-45.0); ABG PARTIAL PRESSURE O2 68.6 mmHg (75.0-100.0); ABG STANDARD HCO3 22.2 MEQ/L (22.0-26.0); ABG TOTAL CO2 20.7 MEQ/L (22.0-29.0); ABG pH (ARTERIAL) 7.479 UNITS (7.350-7.450)
[2017-03-29] MEDS: DOXYCYCLINE HYCLATE 100 MG in D5W MINI-BAG PLUS 100 ML IV (17:44)
[2017-03-29 17:55] LABS: BEDSIDE GLUCOSE 357 MG/DL (70-105)
[2017-03-29] MEDS: AMINO AC/ELECTROLYTE/DEX/CALC 2,566 ML IV (17:55)
[2017-03-29] MEDS: CEFTRIAXONE SOD 1 GM in APPROPRIATE DILUENT 1 EA IV (20:43)
[2017-03-29] MEDS: LEVEMIR (INSULIN DETEMIR) 1 UNITS/0.01ML SC (20:44)
[2017-03-29] MEDS: SIMVASTATIN 20 MG TAB PO (20:46)
[2017-03-30 01:49] LABS: BEDSIDE GLUCOSE 290 MG/DL (70-105)
[2017-03-30] MEDS: CHLORASEPTIC SPRAY MT (01:57)
[2017-03-30] MEDS: SIMETHICONE 80 MG CHEW TAB PO ×4 (01:58→17:02)
[2017-03-30] MEDS: HumaLOG INSULIN (NovoLOG) PER UNIT SC ×8 (01:58→17:28)
[2017-03-30] MEDS: ACETAMINOPHEN TAB 650MG DOSE (2X325MG) PO ×2 (03:31→21:32)
[2017-03-30] MEDS: DOXYCYCLINE HYCLATE 100 MG in D5W MINI-BAG PLUS 100 ML IV ×2 (05:22→16:12)
[2017-03-30] MEDS: SODIUM CHLORIDE 0.9% INJ 10 ML SYR IV (05:22)
[2017-03-30 05:57] LABS: HEMATOCRIT 29.7 % (36.0-47.0); HEMOGLOBIN 9.6 g/dl (12.0-16.0); MEAN CORPUSCULAR HEMOGLOBIN 30.2 pg (27.0-33.0); MEAN CORPUSCULAR HGB CONC 32.3 g/dl (32.0-36.5); MEAN CORPUSCULAR VOLUME 93.4 fl (80.0-96.0); PLATELET COUNT, AUTOMATED 336 10^3/uL (150-450); RED BLOOD COUNT 3.18 10^6/uL (4.00-5.40); RED CELL DISTRIBUTION WIDTH 13.2 % (11.5-14.5); WHITE BLOOD COUNT 13.6 10^3/uL (4.0-10.0)
[2017-03-30 06:09] LABS: ANION GAP 8 MEQ/L (8-16); BLOOD UREA NITROGEN 10 MG/DL (7-18); CALCIUM LEVEL 9.8 MG/DL (8.5-10.1); CARBON DIOXIDE LEVEL 25 MEQ/L (21-32); CHLORIDE LEVEL 99 MEQ/L (98-107); GLOMERULAR FILTRATION RATE > 60.0 (>51); GLUCOSE, FASTING 230 MG/DL (70-105); MAGNESIUM LEVEL 1.6 MG/DL (1.8-2.4); POTASSIUM SERUM 3.6 MEQ/L (3.5-5.1); SODIUM LEVEL 132 MEQ/L (136-145)
[2017-03-30] MEDS: HEPARIN SOD (PORCINE) 5000 UNITS/ML VIAL SC ×3 (06:34→21:34)
[2017-03-30] MEDS: METOCLOPRAMIDE 10 MG TAB PO ×4 (06:34→21:33)
[2017-03-30] MEDS: SUCRALFATE SUSP 1GM/10ML UD PO ×4 (07:35→21:33)
[2017-03-30] MEDS: SYMBICORT 160/4.5MCG INHALER 6GM INH ×2 (07:52→19:57)
[2017-03-30] MEDS: POTASSIUM CHLORIDE 10 MEQ SR TABLET PO (08:41)
[2017-03-30] MEDS: PANTOPRAZOLE 40MG INJ (PROTONIX) (C9113) IV (08:41)
[2017-03-30] MEDS: BISACODYL 10 MG SUPP XX ×2 (08:41→21:34)
[2017-03-30] MEDS: LACTULOSE 20 GM/30 ML SYRUP UD PO ×3 (08:41→21:33)
[2017-03-30] MEDS: MIRALAX *UNIT DOSE* 17GM PACKET PO ×3 (08:41→17:01)
[2017-03-30] MEDS: GEMFIBROZIL 600 MG TAB PO (08:42)
[2017-03-30] MEDS: SENOKOT S TAB PO ×2 (08:42→21:32)
[2017-03-30] MEDS: CETIRIZINE (ZyrTEC) 10 MG TAB PO (08:42)
[2017-03-30] MEDS: tiZANidine 4 MG TAB PO ×2 (08:42→21:32)
[2017-03-30] MEDS: LORATADINE 10 MG TAB PO (08:42)
[2017-03-30] MEDS: AMITRIPTYLINE 50 MG TAB PO ×2 (08:42→21:32)
[2017-03-30] MEDS: AZELASTINE 137MCG NASAL SPY 30 ML (ASTELIN) ×2 (08:42→21:00)
[2017-03-30] MEDS: MULTIVITAMINS/MINERALS THERAP 1 TAB PO (08:42)
[2017-03-30] MEDS: ONDANSETRON 4MG/2ML VIAL (J2405) IV (10:54)
[2017-03-30 13:33] LABS: BEDSIDE GLUCOSE 329 MG/DL (70-105)
[2017-03-30] MEDS: AMINO AC/ELECTROLYTE/DEX/CALC 2,566 ML IV (17:29)
[2017-03-30] MEDS: CEFTRIAXONE SOD 1 GM in APPROPRIATE DILUENT 1 EA IV (17:45)
[2017-03-30 18:08] LABS: BEDSIDE GLUCOSE 323 MG/DL (70-105)
[2017-03-30] MEDS: SIMVASTATIN 20 MG TAB PO (21:32)
[2017-03-30] MEDS: guaiFENesin ER 600 MG TAB PO (21:32)
[2017-03-30] MEDS: LEVEMIR (INSULIN DETEMIR) 1 UNITS/0.01ML SC (21:34)
[2017-03-31] MEDS: HYDROmorphone HCL 1 MG/ML SYRINGE (J1170) IV ×4 (00:10→20:17)
[2017-03-31 00:11] LABS: BEDSIDE GLUCOSE 344 MG/DL (70-105)
[2017-03-31] MEDS: SIMETHICONE 80 MG CHEW TAB PO ×4 (00:11→17:07)
[2017-03-31] MEDS: HumaLOG INSULIN (NovoLOG) PER UNIT SC ×7 (00:11→17:08)
[2017-03-31] MEDS: DOXYCYCLINE HYCLATE 100 MG in D5W MINI-BAG PLUS 100 ML IV ×2 (05:00→16:01)
[2017-03-31] MEDS: ACETAMINOPHEN TAB 650MG DOSE (2X325MG) PO ×4 (05:28→19:09)
[2017-03-31] MEDS: HEPARIN SOD (PORCINE) 5000 UNITS/ML VIAL SC ×3 (06:00→22:26)
[2017-03-31 06:20] LABS: BEDSIDE GLUCOSE 236 MG/DL (70-105)
[2017-03-31] MEDS: SYMBICORT 160/4.5MCG INHALER 6GM INH ×2 (07:31→20:36)
[2017-03-31] MEDS: tiZANidine 4 MG TAB PO ×2 (08:47→20:16)
[2017-03-31] MEDS: MIRALAX *UNIT DOSE* 17GM PACKET PO ×3 (08:47→17:08)
[2017-03-31] MEDS: GEMFIBROZIL 600 MG TAB PO (08:47)
[2017-03-31] MEDS: SUCRALFATE SUSP 1GM/10ML UD PO ×4 (08:47→20:14)
[2017-03-31] MEDS: MULTIVITAMINS/MINERALS THERAP 1 TAB PO (08:48)
[2017-03-31] MEDS: AMITRIPTYLINE 50 MG TAB PO ×2 (08:48→20:14)
[2017-03-31] MEDS: MEROPENEM INJ 1 GM in APPROPRIATE DILUENT 1 EA IV ×2 (08:48→17:07)
[2017-03-31] MEDS: CETIRIZINE (ZyrTEC) 10 MG TAB PO (08:48)
[2017-03-31] MEDS: guaiFENesin ER 600 MG TAB PO ×2 (08:48→20:15)
[2017-03-31] MEDS: SENOKOT S TAB PO ×2 (08:48→20:15)
[2017-03-31] MEDS: METOCLOPRAMIDE 10 MG TAB PO ×4 (08:48→20:15)
[2017-03-31] MEDS: AZELASTINE 137MCG NASAL SPY 30 ML (ASTELIN) ×2 (08:49→20:22)
[2017-03-31] MEDS: PANTOPRAZOLE 40MG INJ (PROTONIX) (C9113) IV (08:49)
[2017-03-31] MEDS: SODIUM CHLORIDE 0.9% INJ 10 ML SYR IV (08:49)
[2017-03-31] MEDS: POTASSIUM CHLORIDE 10 MEQ SR TABLET PO (08:49)
[2017-03-31] MEDS: LORATADINE 10 MG TAB PO (08:49)
[2017-03-31] MEDS: LACTULOSE 20 GM/30 ML SYRUP UD PO ×3 (08:49→20:14)
[2017-03-31] MEDS: BISACODYL 10 MG SUPP XX ×2 (08:50→20:16)
[2017-03-31 09:26] LABS: HEMATOCRIT 30.6 % (36.0-47.0); HEMOGLOBIN 10.4 g/dl (12.0-16.0); MEAN CORPUSCULAR HEMOGLOBIN 31.3 pg (27.0-33.0); MEAN CORPUSCULAR VOLUME 92.2 fl (80.0-96.0); PLATELET COUNT, AUTOMATED 361 10^3/uL (150-450); RED BLOOD COUNT 3.32 10^6/uL (4.00-5.40); RED CELL DISTRIBUTION WIDTH 13.6 % (11.5-14.5)
[2017-03-31] MEDS: ONDANSETRON 4MG/2ML VIAL (J2405) IV (09:29)
[2017-03-31 09:52] LABS: ANION GAP 11 MEQ/L (8-16); BLOOD UREA NITROGEN 11 MG/DL (7-18); CARBON DIOXIDE LEVEL 23 MEQ/L (21-32); CHLORIDE LEVEL 96 MEQ/L (98-107); CREATININE FOR GFR 0.48 MG/DL (0.55-1.02); GLOMERULAR FILTRATION RATE > 60.0 (>51); GLUCOSE, FASTING 251 MG/DL (70-105); MAGNESIUM LEVEL 1.8 MG/DL (1.8-2.4); POTASSIUM SERUM 3.9 MEQ/L (3.5-5.1); SODIUM LEVEL 130 MEQ/L (136-145)
[2017-03-31 12:07] LABS: BEDSIDE GLUCOSE 315 MG/DL (70-105)
[2017-03-31] MEDS: hydrOXYzine 10MG/5ML SYRUP PO (13:58)
[2017-03-31] MEDS: AMINO AC/ELECTROLYTE/DEX/CALC 1,540 ML IV (17:08)
[2017-03-31 18:37] LABS: BEDSIDE GLUCOSE 303 MG/DL (70-105)
[2017-03-31] MEDS: SIMVASTATIN 20 MG TAB PO (20:14)
[2017-03-31] MEDS: LEVEMIR (INSULIN DETEMIR) 1 UNITS/0.01ML SC (20:16)
[2017-03-31 23:56] LABS: BEDSIDE GLUCOSE 370 MG/DL (70-105)
[2017-03-31] MEDS: CHLORASEPTIC SPRAY MT (23:59)
[2017-04-01] MEDS: HumaLOG INSULIN (NovoLOG) PER UNIT SC ×6 (00:01→23:56)
[2017-04-01] MEDS: SIMETHICONE 80 MG CHEW TAB PO ×5 (00:03→22:27)
[2017-04-01] MEDS: MEROPENEM INJ 1 GM in APPROPRIATE DILUENT 1 EA IV ×3 (00:03→18:31)
[2017-04-01] MEDS: hydrOXYzine 10MG/5ML SYRUP PO ×2 (02:21→16:08)
[2017-04-01] MEDS: HYDROmorphone HCL 1 MG/ML SYRINGE (J1170) IV ×6 (03:31→23:55)
[2017-04-01] MEDS: DOXYCYCLINE HYCLATE 100 MG in D5W MINI-BAG PLUS 100 ML IV ×2 (06:18→16:07)
[2017-04-01] MEDS: HEPARIN SOD (PORCINE) 5000 UNITS/ML VIAL SC ×3 (06:27→22:25)
[2017-04-01] MEDS: SYMBICORT 160/4.5MCG INHALER 6GM INH ×2 (07:24→21:00)
[2017-04-01] MEDS: SUCRALFATE SUSP 1GM/10ML UD PO ×4 (07:35→22:23)
[2017-04-01] MEDS: MIRALAX *UNIT DOSE* 17GM PACKET PO ×3 (07:35→18:13)
[2017-04-01] MEDS: PANTOPRAZOLE 40MG INJ (PROTONIX) (C9113) IV ×2 (07:36→07:42)
[2017-04-01] MEDS: LACTULOSE 20 GM/30 ML SYRUP UD PO ×3 (07:36→22:25)
[2017-04-01] MEDS: GEMFIBROZIL 600 MG TAB PO (07:36)
[2017-04-01] MEDS: METOCLOPRAMIDE 10 MG TAB PO ×4 (07:36→22:26)
[2017-04-01] MEDS: AMITRIPTYLINE 50 MG TAB PO ×2 (07:36→22:26)
[2017-04-01] MEDS: tiZANidine 4 MG TAB PO ×2 (07:36→22:26)
[2017-04-01] MEDS: MULTIVITAMINS/MINERALS THERAP 1 TAB PO (07:36)
[2017-04-01] MEDS: guaiFENesin ER 600 MG TAB PO ×2 (07:37→22:26)
[2017-04-01] MEDS: SENOKOT S TAB PO ×2 (07:37→22:26)
[2017-04-01] MEDS: POTASSIUM CHLORIDE 10 MEQ SR TABLET PO (07:37)
[2017-04-01] MEDS: CETIRIZINE (ZyrTEC) 10 MG TAB PO (07:37)
[2017-04-01] MEDS: BISACODYL 10 MG SUPP XX ×2 (07:37→22:26)
[2017-04-01] MEDS: LORATADINE 10 MG TAB PO (07:37)
[2017-04-01] MEDS: AZELASTINE 137MCG NASAL SPY 30 ML (ASTELIN) ×2 (07:41→22:25)
[2017-04-01] MEDS: SODIUM CHLORIDE 0.9% INJ 10 ML SYR IV (07:42)
[2017-04-01 09:42] LABS: BASO # 0.1 10^3/uL (0.0-0.2); BASO % 0.9 % (0.0-1.0); EOS # 0.3 10^3/uL (0.0-0.50); EOS % 2.6 % (0.0-3.0); HEMATOCRIT 31.2 % (36.0-47.0); HEMOGLOBIN 10.3 g/dl (12.0-16.0); IMMATURE GRANULOCYTE # 0.4 10^3/uL (0-0); IMMATURE GRANULOCYTE % 4.2 % (0-0); LYMPH # 1.1 10^3/uL (1.5-4.5); LYMPH % 10.9 % (24.0-44.0); MEAN CORPUSCULAR HEMOGLOBIN 30.5 pg (27.0-33.0); MEAN CORPUSCULAR VOLUME 92.3 fl (80.0-96.0); NEUTROPHILS # 6.8 10^3/uL (1.8-7.7); NEUTROPHILS % 71.4 % (36.0-66.0); PLATELET COUNT, AUTOMATED 384 10^3/uL (150-450); RED BLOOD COUNT 3.38 10^6/uL (4.00-5.40); RED CELL DISTRIBUTION WIDTH 13.7 % (11.5-14.5); WHITE BLOOD COUNT 9.6 10^3/uL (4.0-10.0)
[2017-04-01 10:02] LABS: ALBUMIN 2.6 GM/DL (3.2-5.2); ALBUMIN/GLOBULIN RATIO 0.52 (1.00-1.93); ALKALINE PHOSPHATASE 132 U/L (45-117); ALT/SGPT 20 U/L (12-78); ANION GAP 10 MEQ/L (8-16); AST/SGOT 21 U/L (7-37); BILIRUBIN,TOTAL 0.2 MG/DL (0.2-1.0); BLOOD UREA NITROGEN 13 MG/DL (7-18); CALCIUM LEVEL 9.7 MG/DL (8.5-10.1); CARBON DIOXIDE LEVEL 22 MEQ/L (21-32); CHLORIDE LEVEL 98 MEQ/L (98-107); CREATININE FOR GFR 0.62 MG/DL (0.55-1.02); GLOMERULAR FILTRATION RATE > 60.0 (>51); GLUCOSE, FASTING 329 MG/DL (70-105); POTASSIUM SERUM 4.6 MEQ/L (3.5-5.1); SODIUM LEVEL 130 MEQ/L (136-145); TOTAL PROTEIN 7.6 GM/DL (6.4-8.2)
[2017-04-01 11:40] LABS: BEDSIDE GLUCOSE 272 MG/DL (70-105)
[2017-04-01] MEDS: ONDANSETRON 4MG/2ML VIAL (J2405) IV (13:12)
[2017-04-01 14:02] LABS: SODIUM,RANDOM URINE 17 MEQ/L
[2017-04-01 14:08] LABS: OSMOLALITY URINE 682 MOSM/KG (500-800)
[2017-04-01 16:47] LABS: BEDSIDE GLUCOSE 350 MG/DL (70-105)
[2017-04-01 18:26] LABS: BEDSIDE GLUCOSE 332 MG/DL (70-105)
[2017-04-01] MEDS: AMINO AC/ELECTROLYTE/DEX/CALC 1,540 ML IV (18:26)
[2017-04-01] MEDS: LEVEMIR (INSULIN DETEMIR) 1 UNITS/0.01ML SC (22:25)
[2017-04-01] MEDS: SIMVASTATIN 20 MG TAB PO (22:26)
[2017-04-01 23:27] LABS: BEDSIDE GLUCOSE 311 MG/DL (70-105)
[2017-04-02] MEDS: MEROPENEM INJ 1 GM in APPROPRIATE DILUENT 1 EA IV ×3 (01:50→18:34)
[2017-04-02] MEDS: DOXYCYCLINE HYCLATE 100 MG in D5W MINI-BAG PLUS 100 ML IV ×2 (04:16→15:29)
[2017-04-02 06:16] LABS: BEDSIDE GLUCOSE 317 MG/DL (70-105)
[2017-04-02] MEDS: HEPARIN SOD (PORCINE) 5000 UNITS/ML VIAL SC ×3 (06:36→21:47)
[2017-04-02] MEDS: SIMETHICONE 80 MG CHEW TAB PO ×3 (06:36→18:34)
[2017-04-02] MEDS: HumaLOG INSULIN (NovoLOG) PER UNIT SC ×4 (06:37→18:35)
[2017-04-02] MEDS: HYDROmorphone HCL 1 MG/ML SYRINGE (J1170) IV ×4 (06:38→23:03)
[2017-04-02] MEDS: SYMBICORT 160/4.5MCG INHALER 6GM INH ×2 (07:48→20:22)
[2017-04-02 08:40] LABS: HEMATOCRIT 32.7 % (36.0-47.0); HEMOGLOBIN 10.7 g/dl (12.0-16.0); MEAN CORPUSCULAR HEMOGLOBIN 30.1 pg (27.0-33.0); MEAN CORPUSCULAR HGB CONC 32.7 g/dl (32.0-36.5); MEAN CORPUSCULAR VOLUME 91.9 fl (80.0-96.0); PLATELET COUNT, AUTOMATED 382 10^3/uL (150-450); RED BLOOD COUNT 3.56 10^6/uL (4.00-5.40); RED CELL DISTRIBUTION WIDTH 13.7 % (11.5-14.5); WHITE BLOOD COUNT 9.1 10^3/uL (4.0-10.0)
[2017-04-02] MEDS: SUCRALFATE SUSP 1GM/10ML UD PO ×4 (08:41→21:46)
[2017-04-02] MEDS: PANTOPRAZOLE 40MG INJ (PROTONIX) (C9113) IV (08:41)
[2017-04-02] MEDS: LACTULOSE 20 GM/30 ML SYRUP UD PO ×3 (08:41→21:46)
[2017-04-02] MEDS: MIRALAX *UNIT DOSE* 17GM PACKET PO ×3 (08:41→18:34)
[2017-04-02 08:42] LABS: ADD MANUAL DIFFER YES; DIFF SLIDE NUMBER 44; POS COUNT POS FLAG; POSITIVE MORPH POS FLAG; WBC SCAT POS FLAG
[2017-04-02] MEDS: GEMFIBROZIL 600 MG TAB PO (08:42)
[2017-04-02] MEDS: CETIRIZINE (ZyrTEC) 10 MG TAB PO (08:42)
[2017-04-02] MEDS: guaiFENesin ER 600 MG TAB PO ×2 (08:42→21:48)
[2017-04-02] MEDS: SENOKOT S TAB PO ×2 (08:42→21:48)
[2017-04-02] MEDS: LORATADINE 10 MG TAB PO (08:42)
[2017-04-02] MEDS: METOCLOPRAMIDE 10 MG TAB PO ×4 (08:42→21:48)
[2017-04-02] MEDS: POTASSIUM CHLORIDE 10 MEQ SR TABLET PO (08:42)
[2017-04-02] MEDS: tiZANidine 4 MG TAB PO ×2 (08:42→21:47)
[2017-04-02] MEDS: AMITRIPTYLINE 50 MG TAB PO ×2 (08:42→21:48)
[2017-04-02] MEDS: MULTIVITAMINS/MINERALS THERAP 1 TAB PO (08:42)
[2017-04-02] MEDS: BISACODYL 10 MG SUPP XX ×2 (08:43→21:48)
[2017-04-02] MEDS: AZELASTINE 137MCG NASAL SPY 30 ML (ASTELIN) ×2 (08:43→21:48)
[2017-04-02] MEDS: SODIUM CHLORIDE 0.9% INJ 10 ML SYR IV (08:43)
[2017-04-02] MEDS: ONDANSETRON 4MG/2ML VIAL (J2405) IV ×2 (08:53→21:46)
[2017-04-02 09:03] LABS: EOSINOPHILS 3 % (0-5); LYMPHOCYTES 18 % (16-52); MONOCYTES 8 % (0-8); NEUTROPHILS 71 % (35-75); PLATELET ESTIMATE NORMAL (NORMAL)
[2017-04-02 09:19] LABS: ALBUMIN 2.6 GM/DL (3.2-5.2); ALKALINE PHOSPHATASE 134 U/L (45-117); ALT/SGPT 19 U/L (12-78); ANION GAP 12 MEQ/L (8-16); AST/SGOT 13 U/L (7-37); BILIRUBIN,TOTAL 0.2 MG/DL (0.2-1.0); BLOOD UREA NITROGEN 15 MG/DL (7-18); CALCIUM LEVEL 9.7 MG/DL (8.5-10.1); CARBON DIOXIDE LEVEL 21 MEQ/L (21-32); CHLORIDE LEVEL 98 MEQ/L (98-107); CREATININE FOR GFR 0.66 MG/DL (0.55-1.02); GLOMERULAR FILTRATION RATE > 60.0 (>51); GLUCOSE, FASTING 345 MG/DL (70-105); POTASSIUM SERUM 4.2 MEQ/L (3.5-5.1); SODIUM LEVEL 131 MEQ/L (136-145); TOTAL PROTEIN 7.8 GM/DL (6.4-8.2)
[2017-04-02 09:59] LABS: MAGNESIUM LEVEL 1.8 MG/DL (1.8-2.4)
[2017-04-02 12:01] LABS: BEDSIDE GLUCOSE 369 MG/DL (70-105)
[2017-04-02] MEDS: hydrOXYzine 10MG/5ML SYRUP PO (15:28)
[2017-04-02 17:41] LABS: BEDSIDE GLUCOSE 376 MG/DL (70-105)
[2017-04-02] MEDS: AMINO AC/ELECTROLYTE/DEX/CALC 1,540 ML IV (18:35)
[2017-04-02] MEDS: LEVEMIR (INSULIN DETEMIR) 1 UNITS/0.01ML SC (21:47)
[2017-04-02] MEDS: SIMVASTATIN 20 MG TAB PO (21:48)
[2017-04-02 23:56] LABS: BEDSIDE GLUCOSE 266 MG/DL (70-105)
[2017-04-03] MEDS: SIMETHICONE 80 MG CHEW TAB PO ×4 (00:29→17:09)
[2017-04-03] MEDS: MEROPENEM INJ 1 GM in APPROPRIATE DILUENT 1 EA IV ×2 (00:30→08:16)
[2017-04-03] MEDS: hydrOXYzine 10MG/5ML SYRUP PO ×2 (00:30→20:47)
[2017-04-03 05:08] LABS: BEDSIDE GLUCOSE 245 MG/DL (70-105)
[2017-04-03] MEDS: ONDANSETRON 4MG/2ML VIAL (J2405) IV (05:14)
[2017-04-03] MEDS: HEPARIN SOD (PORCINE) 5000 UNITS/ML VIAL SC ×2 (05:14→15:10)
[2017-04-03] MEDS: HYDROmorphone HCL 1 MG/ML SYRINGE (J1170) IV ×4 (05:14→22:59)
[2017-04-03] MEDS: HumaLOG INSULIN (NovoLOG) PER UNIT SC ×7 (05:15→18:02)
[2017-04-03] MEDS: DOXYCYCLINE HYCLATE 100 MG in D5W MINI-BAG PLUS 100 ML IV (05:15)
[2017-04-03 06:57] LABS: HEMATOCRIT 32.8 % (36.0-47.0); HEMOGLOBIN 10.3 g/dl (12.0-16.0); MEAN CORPUSCULAR HEMOGLOBIN 29.7 pg (27.0-33.0); MEAN CORPUSCULAR HGB CONC 31.4 g/dl (32.0-36.5); MEAN CORPUSCULAR VOLUME 94.5 fl (80.0-96.0); PLATELET COUNT, AUTOMATED 329 10^3/uL (150-450); RED BLOOD COUNT 3.47 10^6/uL (4.00-5.40); RED CELL DISTRIBUTION WIDTH 13.8 % (11.5-14.5); WHITE BLOOD COUNT 8.6 10^3/uL (4.0-10.0)
[2017-04-03 07:15] LABS: ALBUMIN 2.5 GM/DL (3.2-5.2); ALBUMIN/GLOBULIN RATIO 0.43 (1.00-1.93); ALKALINE PHOSPHATASE 121 U/L (45-117); ALT/SGPT 18 U/L (12-78); ANION GAP 11 MEQ/L (8-16); AST/SGOT 16 U/L (7-37); BILIRUBIN,TOTAL 0.2 MG/DL (0.2-1.0); BLOOD UREA NITROGEN 12 MG/DL (7-18); CALCIUM LEVEL 9.8 MG/DL (8.5-10.1); CARBON DIOXIDE LEVEL 18 MEQ/L (21-32); CHLORIDE LEVEL 103 MEQ/L (98-107); CREATININE FOR GFR 0.59 MG/DL (0.55-1.02); GLOMERULAR FILTRATION RATE > 60.0 (>51); GLUCOSE, FASTING 220 MG/DL (70-105); POTASSIUM SERUM 4.1 MEQ/L (3.5-5.1); SODIUM LEVEL 132 MEQ/L (136-145); TOTAL PROTEIN 8.3 GM/DL (6.4-8.2)
[2017-04-03 07:29] LABS: POSITIVE MORPH POS FLAG
[2017-04-03 07:30] LABS: ADD MANUAL DIFFER YES; DIFF SLIDE NUMBER 27; PLT CLUMPS? POS FLAG; POS COUNT POS FLAG
[2017-04-03 07:34] LABS: BASOPHILS 1 % (0-4); EOSINOPHILS 4 % (0-5); LYMPHOCYTES 27 % (16-52); MONOCYTES 11 % (0-8); NEUTROPHILS 57 % (35-75); PLATELET ESTIMATE NORMAL (NORMAL)
[2017-04-03] MEDS: SYMBICORT 160/4.5MCG INHALER 6GM INH ×2 (07:46→20:50)
[2017-04-03] MEDS: SUCRALFATE SUSP 1GM/10ML UD PO ×4 (08:16→20:36)
[2017-04-03] MEDS: LACTULOSE 20 GM/30 ML SYRUP UD PO ×3 (08:16→20:37)
[2017-04-03] MEDS: PANTOPRAZOLE 40MG INJ (PROTONIX) (C9113) IV ×2 (08:16→11:17)
[2017-04-03] MEDS: MIRALAX *UNIT DOSE* 17GM PACKET PO ×3 (08:16→17:09)
[2017-04-03] MEDS: BISACODYL 10 MG SUPP XX ×2 (08:16→20:37)
[2017-04-03] MEDS: guaiFENesin ER 600 MG TAB PO ×2 (08:17→20:36)
[2017-04-03] MEDS: AMITRIPTYLINE 50 MG TAB PO ×2 (08:17→20:37)
[2017-04-03] MEDS: SENOKOT S TAB PO ×2 (08:17→20:37)
[2017-04-03] MEDS: POTASSIUM CHLORIDE 10 MEQ SR TABLET PO (08:17)
[2017-04-03] MEDS: LORATADINE 10 MG TAB PO (08:18)
[2017-04-03] MEDS: tiZANidine 4 MG TAB PO ×2 (08:18→20:37)
[2017-04-03] MEDS: SODIUM CHLORIDE 0.9% INJ 10 ML SYR IV (08:18)
[2017-04-03] MEDS: MULTIVITAMINS/MINERALS THERAP 1 TAB PO (08:18)
[2017-04-03] MEDS: CETIRIZINE (ZyrTEC) 10 MG TAB PO (08:18)
[2017-04-03] MEDS: METOCLOPRAMIDE 10 MG TAB PO ×4 (08:18→20:36)
[2017-04-03] MEDS: GEMFIBROZIL 600 MG TAB PO (08:18)
[2017-04-03] MEDS: AZELASTINE 137MCG NASAL SPY 30 ML (ASTELIN) ×2 (08:19→20:38)
[2017-04-03 12:00] LABS: BEDSIDE GLUCOSE 388 MG/DL (70-105)
[2017-04-03] MEDS: AMINO AC/ELECTROLYTE/DEX/CALC 1,540 ML IV (18:02)
[2017-04-03 18:10] LABS: BEDSIDE GLUCOSE 388 MG/DL (70-105)
[2017-04-03] MEDS: SIMVASTATIN 20 MG TAB PO (20:36)
[2017-04-03] MEDS: LEVEMIR (INSULIN DETEMIR) 1 UNITS/0.01ML SC (20:38)
[2017-04-04] MEDS: SIMETHICONE 80 MG CHEW TAB PO ×4 (00:07→18:28)
[2017-04-04] MEDS: HumaLOG INSULIN (NovoLOG) PER UNIT SC ×5 (00:07→18:28)
[2017-04-04 00:19] LABS: BEDSIDE GLUCOSE 326 MG/DL (70-105)
[2017-04-04] MEDS: ONDANSETRON 4MG/2ML VIAL (J2405) IV ×3 (02:29→21:10)
[2017-04-04] MEDS: HYDROmorphone HCL 1 MG/ML SYRINGE (J1170) IV ×4 (05:06→22:02)
[2017-04-04] MEDS: SODIUM CHLORIDE 0.9% INJ 10 ML SYR IV ×3 (05:09→17:24)
[2017-04-04 05:29] LABS: HEMATOCRIT 31.3 % (36.0-47.0); HEMOGLOBIN 10.3 g/dl (12.0-16.0); MEAN CORPUSCULAR HEMOGLOBIN 30.6 pg (27.0-33.0); MEAN CORPUSCULAR HGB CONC 32.9 g/dl (32.0-36.5); MEAN CORPUSCULAR VOLUME 92.9 fl (80.0-96.0); PLATELET COUNT, AUTOMATED 382 10^3/uL (150-450); RED BLOOD COUNT 3.37 10^6/uL (4.00-5.40); RED CELL DISTRIBUTION WIDTH 13.8 % (11.5-14.5); WHITE BLOOD COUNT 9.6 10^3/uL (4.0-10.0)
[2017-04-04 05:43] LABS: ADD MANUAL DIFFER YES; DIFF SLIDE NUMBER 20; POS COUNT POS FLAG; POSITIVE MORPH POS FLAG
[2017-04-04 06:35] LABS: ATYPICAL LYMPH 1 % (0-5); BANDS 2 % (< 11); LYMPHOCYTES 18 % (16-52); METAMYELOCYTES 2 % (0-0); MONOCYTES 1 % (0-8); MYELOCYTES 2 % (0-0); NEUTROPHILS 74 % (35-75); PLATELET ESTIMATE NORMAL (NORMAL); POLYCHROMASIA 1+
[2017-04-04 06:40] LABS: BEDSIDE GLUCOSE 270 MG/DL (70-105)
[2017-04-04 06:56] LABS: ALBUMIN 2.7 GM/DL (3.2-5.2); ALBUMIN/GLOBULIN RATIO 0.56 (1.00-1.93); ALKALINE PHOSPHATASE 123 U/L (45-117); ALT/SGPT 20 U/L (12-78); ANION GAP 11 MEQ/L (8-16); AST/SGOT 15 U/L (7-37); BILIRUBIN,TOTAL 0.2 MG/DL (0.2-1.0); BLOOD UREA NITROGEN 14 MG/DL (7-18); CARBON DIOXIDE LEVEL 21 MEQ/L (21-32); CHLORIDE LEVEL 101 MEQ/L (98-107); GLOMERULAR FILTRATION RATE > 60.0 (>51); GLUCOSE, FASTING 251 MG/DL (70-105); POTASSIUM SERUM 4.4 MEQ/L (3.5-5.1); SODIUM LEVEL 133 MEQ/L (136-145); TOTAL PROTEIN 7.5 GM/DL (6.4-8.2)
[2017-04-04] MEDS: SUCRALFATE SUSP 1GM/10ML UD PO ×4 (07:30→21:05)
[2017-04-04] MEDS: METOCLOPRAMIDE 10 MG TAB PO ×4 (07:30→21:07)
[2017-04-04] MEDS: MULTIVITAMINS/MINERALS THERAP 1 TAB PO (07:59)
[2017-04-04] MEDS: MIRALAX *UNIT DOSE* 17GM PACKET PO ×3 (08:00→16:51)
[2017-04-04] MEDS: guaiFENesin ER 600 MG TAB PO ×2 (08:01→21:07)
[2017-04-04] MEDS: AMITRIPTYLINE 50 MG TAB PO ×2 (08:27→21:06)
[2017-04-04] MEDS: LORATADINE 10 MG TAB PO (08:27)
[2017-04-04] MEDS: GEMFIBROZIL 600 MG TAB PO (08:28)
[2017-04-04] MEDS: LACTULOSE 20 GM/30 ML SYRUP UD PO ×4 (08:28→21:06)
[2017-04-04] MEDS: PANTOPRAZOLE 40MG INJ (PROTONIX) (C9113) IV (08:28)
[2017-04-04] MEDS: SENOKOT S TAB PO ×3 (08:28→21:07)
[2017-04-04] MEDS: CETIRIZINE (ZyrTEC) 10 MG TAB PO (08:28)
[2017-04-04] MEDS: tiZANidine 4 MG TAB PO ×2 (08:31→21:07)
[2017-04-04] MEDS: BISACODYL 10 MG SUPP XX ×2 (08:34→21:00)
[2017-04-04] MEDS: POTASSIUM CHLORIDE 10 MEQ SR TABLET PO (08:48)
[2017-04-04] MEDS: AZELASTINE 137MCG NASAL SPY 30 ML (ASTELIN) ×2 (08:48→21:08)
[2017-04-04] MEDS: SYMBICORT 160/4.5MCG INHALER 6GM INH ×2 (08:51→21:20)
[2017-04-04] MEDS ORDERED: fentaNYL 100 MCG/2 ML INJECTION (J3010) As Ordered (12:33)
[2017-04-04] MEDS ORDERED: SUCCINYLCHOLINE 100 MG/5 ML SYRINGE (J0330) As Ordered (12:33)
[2017-04-04] MEDS ORDERED: ONDANSETRON 4MG/2ML VIAL (J2405) As Ordered (12:33)
[2017-04-04] MEDS ORDERED: ROCURONIUM BROMIDE 50 MG/5 ML VIAL As Ordered (12:33)
[2017-04-04] MEDS ORDERED: PROPOFOL 200 MG/20 ML VIAL As Ordered (12:33)
[2017-04-04] MEDS ORDERED: dexameTHASONE 4 MG/ML 1ML VIAL (J1100) As Ordered (12:33)
[2017-04-04] MEDS ORDERED: NEOSTIGMINE 10 MG/10 ML VIAL (J2710) As Ordered (14:04)
[2017-04-04] MEDS ORDERED: HYDROmorphone HCL 2 MG/ML 1ML VIAL (J1170) As Ordered (14:04)
[2017-04-04] MEDS ORDERED: GLYCOPYRROLATE INJ 0.2 MG/ML 2 ML VIAL As Ordered (14:04)
[2017-04-04] MEDS: LR 1,000 ML IV (14:26)
[2017-04-04] MEDS: LIDOCAINE W/EPINEPHRINE 1% 20ML VIAL As Ordered (14:28)
[2017-04-04] MEDS: BUPIVACAINE HCL 0.25% 30 ML VIAL As Ordered (14:28)
[2017-04-04] MEDS: fentaNYL 100 MCG/2 ML INJECTION (J3010) IV ×4 (14:40→14:55)
[2017-04-04] MEDS ORDERED: METOCLOPRAMIDE INJ 10MG/2ML VIAL (J2765) IV (14:45)
[2017-04-04] MEDS ORDERED: ONDANSETRON 4MG/2ML VIAL (J2405) IV (14:45)
[2017-04-04 14:59] LABS: BEDSIDE GLUCOSE 261 MG/DL (70-105)
[2017-04-04 17:52] LABS: BEDSIDE GLUCOSE 281 MG/DL (70-105)
[2017-04-04] MEDS: AMINO AC/ELECTROLYTE/DEX/CALC 1,540 ML IV (18:29)
[2017-04-04] MEDS: LEVEMIR (INSULIN DETEMIR) 1 UNITS/0.01ML SC (21:06)
[2017-04-04] MEDS: SIMVASTATIN 20 MG TAB PO (21:07)
[2017-04-04] MEDS: ACETAMINOPHEN TAB 650MG DOSE (2X325MG) PO (21:08)
[2017-04-05 00:21] LABS: BEDSIDE GLUCOSE 387 MG/DL (70-105)
[2017-04-05] MEDS: HumaLOG INSULIN (NovoLOG) PER UNIT SC ×4 (00:35→18:17)
[2017-04-05] MEDS: SIMETHICONE 80 MG CHEW TAB PO ×4 (00:35→18:05)
[2017-04-05] MEDS: HYDROmorphone HCL 1 MG/ML SYRINGE (J1170) IV ×4 (03:25→19:29)
[2017-04-05 05:12] LABS: BEDSIDE GLUCOSE 337 MG/DL (70-105)
[2017-04-05] MEDS: SODIUM CHLORIDE 0.9% INJ 10 ML SYR IV ×3 (05:25→18:06)
[2017-04-05] MEDS: HEPARIN SOD (PORCINE) 5000 UNITS/ML VIAL SC ×3 (06:18→20:49)
[2017-04-05 06:21] LABS: HEMATOCRIT 30.6 % (36.0-47.0); HEMOGLOBIN 9.9 g/dl (12.0-16.0); MEAN CORPUSCULAR HGB CONC 32.4 g/dl (32.0-36.5); MEAN CORPUSCULAR VOLUME 92.7 fl (80.0-96.0); PLATELET COUNT, AUTOMATED 379 10^3/uL (150-450); RED CELL DISTRIBUTION WIDTH 14.1 % (11.5-14.5); WHITE BLOOD COUNT 14.4 10^3/uL (4.0-10.0)
[2017-04-05 06:23] LABS: ADD MANUAL DIFFER YES; DIFF SLIDE NUMBER 9; POS COUNT POS FLAG; POSITIVE MORPH POS FLAG
[2017-04-05 06:49] LABS: ALBUMIN 2.6 GM/DL (3.2-5.2); ALBUMIN/GLOBULIN RATIO 0.57 (1.00-1.93); ALKALINE PHOSPHATASE 116 U/L (45-117); ALT/SGPT 18 U/L (12-78); ANION GAP 11 MEQ/L (8-16); AST/SGOT 11 U/L (7-37); BILIRUBIN,TOTAL 0.2 MG/DL (0.2-1.0); BLOOD UREA NITROGEN 17 MG/DL (7-18); CALCIUM LEVEL 9.7 MG/DL (8.5-10.1); CARBON DIOXIDE LEVEL 22 MEQ/L (21-32); CHLORIDE LEVEL 102 MEQ/L (98-107); CREATININE FOR GFR 0.52 MG/DL (0.55-1.02); GLOMERULAR FILTRATION RATE > 60.0 (>51); GLUCOSE, FASTING 318 MG/DL (70-105); POTASSIUM SERUM 4.5 MEQ/L (3.5-5.1); SODIUM LEVEL 135 MEQ/L (136-145); TOTAL PROTEIN 7.2 GM/DL (6.4-8.2)
[2017-04-05 06:50] LABS: BANDS 2 % (< 11); LYMPHOCYTES 7 % (16-52); METAMYELOCYTES 5 % (0-0); MONOCYTES 1 % (0-8); MYELOCYTES 3 % (0-0); NEUTROPHILS 82 % (35-75); PLATELET ESTIMATE NORMAL (NORMAL)
[2017-04-05] MEDS: PANTOPRAZOLE 40MG INJ (PROTONIX) (C9113) IV (08:29)
[2017-04-05] MEDS: MIRALAX *UNIT DOSE* 17GM PACKET PO (08:30)
[2017-04-05] MEDS: AMITRIPTYLINE 50 MG TAB PO ×2 (08:31→20:50)
[2017-04-05] MEDS: LACTULOSE 20 GM/30 ML SYRUP UD PO ×3 (08:31→20:49)
[2017-04-05] MEDS: POTASSIUM CHLORIDE 10 MEQ SR TABLET PO (08:31)
[2017-04-05] MEDS: METOCLOPRAMIDE 10 MG TAB PO ×4 (08:32→20:50)
[2017-04-05] MEDS: LORATADINE 10 MG TAB PO (08:32)
[2017-04-05] MEDS: GEMFIBROZIL 600 MG TAB PO (08:32)
[2017-04-05] MEDS: guaiFENesin ER 600 MG TAB PO ×2 (08:32→20:50)
[2017-04-05] MEDS: SENOKOT S TAB PO (08:33)
[2017-04-05] MEDS: SUCRALFATE SUSP 1GM/10ML UD PO ×4 (08:33→20:49)
[2017-04-05] MEDS: MULTIVITAMINS/MINERALS THERAP 1 TAB PO (08:33)
[2017-04-05] MEDS: CETIRIZINE (ZyrTEC) 10 MG TAB PO (08:33)
[2017-04-05] MEDS: tiZANidine 4 MG TAB PO ×2 (08:33→20:50)
[2017-04-05] MEDS: AZELASTINE 137MCG NASAL SPY 30 ML (ASTELIN) ×2 (08:35→20:50)
[2017-04-05] MEDS: BISACODYL 10 MG SUPP XX (08:35)
[2017-04-05] MEDS: SYMBICORT 160/4.5MCG INHALER 6GM INH ×2 (09:37→21:00)
[2017-04-05 11:55] LABS: BEDSIDE GLUCOSE 279 MG/DL (70-105)
[2017-04-05 17:19] LABS: BEDSIDE GLUCOSE 262 MG/DL (70-105)
[2017-04-05] MEDS: AMINO AC/ELECTROLYTE/DEX/CALC 1,540 ML IV (18:06)
[2017-04-05] MEDS: ONDANSETRON 4MG/2ML VIAL (J2405) IV (20:03)
[2017-04-05] MEDS: LEVEMIR (INSULIN DETEMIR) 1 UNITS/0.01ML SC (20:49)
[2017-04-05] MEDS: SIMVASTATIN 20 MG TAB PO (20:50)
[2017-04-06 00:19] LABS: BEDSIDE GLUCOSE 268 MG/DL (70-105)
[2017-04-06] MEDS: SIMETHICONE 80 MG CHEW TAB PO ×4 (00:39→17:36)
[2017-04-06] MEDS: HYDROmorphone HCL 1 MG/ML SYRINGE (J1170) IV ×4 (00:40→21:34)
[2017-04-06] MEDS: HumaLOG INSULIN (NovoLOG) PER UNIT SC ×4 (00:40→17:35)
[2017-04-06 05:30] LABS: BEDSIDE GLUCOSE 223 MG/DL (70-105)
[2017-04-06] MEDS: SODIUM CHLORIDE 0.9% INJ 10 ML SYR IV ×3 (05:35→17:33)
[2017-04-06] MEDS: HEPARIN SOD (PORCINE) 5000 UNITS/ML VIAL SC ×3 (05:36→21:34)
[2017-04-06 06:13] LABS: BASO # 0.1 10^3/uL (0.0-0.2); BASO % 0.6 % (0.0-1.0); EOS % 0.4 % (0.0-3.0); HEMATOCRIT 31.2 % (36.0-47.0); IMMATURE GRANULOCYTE # 0.4 10^3/uL (0-0); IMMATURE GRANULOCYTE % 4.1 % (0-0); LYMPH # 1.9 10^3/uL (1.5-4.5); LYMPH % 20.3 % (24.0-44.0); MEAN CORPUSCULAR HEMOGLOBIN 30.1 pg (27.0-33.0); MEAN CORPUSCULAR HGB CONC 32.1 g/dl (32.0-36.5); MONO # 0.8 10^3/uL (0.0-0.8); MONO % 8.8 % (0.0-5.0); NEUTROPHILS # 6.3 10^3/uL (1.8-7.7); NEUTROPHILS % 65.8 % (36.0-66.0); PLATELET COUNT, AUTOMATED 366 10^3/uL (150-450); RED BLOOD COUNT 3.32 10^6/uL (4.00-5.40); RED CELL DISTRIBUTION WIDTH 14.4 % (11.5-14.5); WHITE BLOOD COUNT 9.6 10^3/uL (4.0-10.0)
[2017-04-06 06:47] LABS: ALBUMIN 2.7 GM/DL (3.2-5.2); ALBUMIN/GLOBULIN RATIO 0.61 (1.00-1.93); ALKALINE PHOSPHATASE 121 U/L (45-117); ALT/SGPT 19 U/L (12-78); ANION GAP 8 MEQ/L (8-16); AST/SGOT 14 U/L (7-37); BILIRUBIN,TOTAL 0.2 MG/DL (0.2-1.0); BLOOD UREA NITROGEN 25 MG/DL (7-18); CALCIUM LEVEL 9.4 MG/DL (8.5-10.1); CARBON DIOXIDE LEVEL 25 MEQ/L (21-32); CHLORIDE LEVEL 104 MEQ/L (98-107); CREATININE FOR GFR 0.51 MG/DL (0.55-1.02); GLOMERULAR FILTRATION RATE > 60.0 (>51); GLUCOSE, FASTING 199 MG/DL (70-105); SODIUM LEVEL 137 MEQ/L (136-145); TOTAL PROTEIN 7.1 GM/DL (6.4-8.2)
[2017-04-06] MEDS: METOCLOPRAMIDE 10 MG TAB PO ×4 (07:36→21:35)
[2017-04-06] MEDS: SUCRALFATE SUSP 1GM/10ML UD PO ×4 (07:37→21:33)
[2017-04-06] MEDS: ONDANSETRON 4MG/2ML VIAL (J2405) IV ×2 (08:35→17:33)
[2017-04-06] MEDS: SYMBICORT 160/4.5MCG INHALER 6GM INH ×2 (09:25→20:02)
[2017-04-06] MEDS: LACTULOSE 20 GM/30 ML SYRUP UD PO ×3 (10:46→21:33)
[2017-04-06] MEDS: AMITRIPTYLINE 50 MG TAB PO ×2 (10:47→21:35)
[2017-04-06] MEDS: CETIRIZINE (ZyrTEC) 10 MG TAB PO (10:47)
[2017-04-06] MEDS: POTASSIUM CHLORIDE 10 MEQ SR TABLET PO (10:47)
[2017-04-06] MEDS: GEMFIBROZIL 600 MG TAB PO (10:47)
[2017-04-06] MEDS: MULTIVITAMINS/MINERALS THERAP 1 TAB PO (10:47)
[2017-04-06] MEDS: guaiFENesin ER 600 MG TAB PO ×2 (10:47→21:35)
[2017-04-06] MEDS: PANTOPRAZOLE 40MG INJ (PROTONIX) (C9113) IV (10:48)
[2017-04-06] MEDS: LORATADINE 10 MG TAB PO (10:48)
[2017-04-06] MEDS: AZELASTINE 137MCG NASAL SPY 30 ML (ASTELIN) ×2 (10:49→21:35)
[2017-04-06] MEDS: tiZANidine 4 MG TAB PO ×2 (10:51→21:35)
[2017-04-06 11:57] LABS: BEDSIDE GLUCOSE 147 MG/DL (70-105)
[2017-04-06 17:25] LABS: BEDSIDE GLUCOSE 217 MG/DL (70-105)
[2017-04-06] MEDS: SIMVASTATIN 20 MG TAB PO (21:35)
[2017-04-06] MEDS: LEVEMIR (INSULIN DETEMIR) 1 UNITS/0.01ML SC (21:36)
[2017-04-07] MEDS: HumaLOG INSULIN (NovoLOG) PER UNIT SC ×4 (00:21→17:24)
[2017-04-07] MEDS: SIMETHICONE 80 MG CHEW TAB PO ×5 (00:21→23:27)
[2017-04-07 00:27] LABS: BEDSIDE GLUCOSE 236 MG/DL (70-105)
[2017-04-07] MEDS: HYDROmorphone HCL 1 MG/ML SYRINGE (J1170) IV ×5 (02:38→23:28)
[2017-04-07 05:31] LABS: BEDSIDE GLUCOSE 166 MG/DL (70-105)
[2017-04-07] MEDS: HEPARIN SOD (PORCINE) 5000 UNITS/ML VIAL SC ×3 (05:32→22:01)
[2017-04-07] MEDS: ONDANSETRON 4MG/2ML VIAL (J2405) IV ×3 (05:32→18:09)
[2017-04-07] MEDS: SODIUM CHLORIDE 0.9% INJ 10 ML SYR IV ×3 (05:34→17:25)
[2017-04-07 05:54] LABS: BASO # 0.1 10^3/uL (0.0-0.2); BASO % 0.6 % (0.0-1.0); EOS # 0.1 10^3/uL (0.0-0.50); HEMATOCRIT 30.3 % (36.0-47.0); HEMOGLOBIN 9.7 g/dl (12.0-16.0); IMMATURE GRANULOCYTE # 0.2 10^3/uL (0-0); IMMATURE GRANULOCYTE % 2.3 % (0-0); LYMPH # 1.9 10^3/uL (1.5-4.5); LYMPH % 21.6 % (24.0-44.0); MEAN CORPUSCULAR VOLUME 93.8 fl (80.0-96.0); MONO # 0.8 10^3/uL (0.0-0.8); MONO % 8.7 % (0.0-5.0); NEUTROPHILS # 5.7 10^3/uL (1.8-7.7); NEUTROPHILS % 65.8 % (36.0-66.0); PLATELET COUNT, AUTOMATED 348 10^3/uL (150-450); RED BLOOD COUNT 3.23 10^6/uL (4.00-5.40); RED CELL DISTRIBUTION WIDTH 14.4 % (11.5-14.5); WHITE BLOOD COUNT 8.6 10^3/uL (4.0-10.0)
[2017-04-07 06:20] LABS: ALBUMIN 2.6 GM/DL (3.2-5.2); ALBUMIN/GLOBULIN RATIO 0.62 (1.00-1.93); ALKALINE PHOSPHATASE 120 U/L (45-117); ALT/SGPT 17 U/L (12-78); ANION GAP 10 MEQ/L (8-16); AST/SGOT 14 U/L (7-37); BILIRUBIN,TOTAL 0.3 MG/DL (0.2-1.0); BLOOD UREA NITROGEN 16 MG/DL (7-18); CALCIUM LEVEL 9.3 MG/DL (8.5-10.1); CARBON DIOXIDE LEVEL 24 MEQ/L (21-32); CHLORIDE LEVEL 104 MEQ/L (98-107); CREATININE FOR GFR 0.42 MG/DL (0.55-1.02); GLOMERULAR FILTRATION RATE > 60.0 (>51); GLUCOSE, FASTING 171 MG/DL (70-105); POTASSIUM SERUM 3.9 MEQ/L (3.5-5.1); SODIUM LEVEL 138 MEQ/L (136-145); TOTAL PROTEIN 6.8 GM/DL (6.4-8.2)
[2017-04-07] MEDS: METOCLOPRAMIDE 10 MG TAB PO ×4 (07:52→22:02)
[2017-04-07] MEDS: SUCRALFATE SUSP 1GM/10ML UD PO ×4 (07:52→21:59)
[2017-04-07] MEDS: SYMBICORT 160/4.5MCG INHALER 6GM INH ×2 (08:08→20:04)
[2017-04-07] MEDS: PANTOPRAZOLE 40MG INJ (PROTONIX) (C9113) IV (09:05)
[2017-04-07] MEDS: tiZANidine 4 MG TAB PO ×2 (09:05→22:02)
[2017-04-07] MEDS: POTASSIUM CHLORIDE 10 MEQ SR TABLET PO (09:06)
[2017-04-07] MEDS: guaiFENesin ER 600 MG TAB PO ×2 (09:06→22:01)
[2017-04-07] MEDS: MULTIVITAMINS/MINERALS THERAP 1 TAB PO (09:07)
[2017-04-07] MEDS: GEMFIBROZIL 600 MG TAB PO (09:07)
[2017-04-07] MEDS: CETIRIZINE (ZyrTEC) 10 MG TAB PO (09:07)
[2017-04-07] MEDS: LORATADINE 10 MG TAB PO (09:07)
[2017-04-07] MEDS: LACTULOSE 20 GM/30 ML SYRUP UD PO ×3 (09:07→21:59)
[2017-04-07] MEDS: AMITRIPTYLINE 50 MG TAB PO ×2 (09:07→22:01)
[2017-04-07] MEDS: AZELASTINE 137MCG NASAL SPY 30 ML (ASTELIN) ×2 (09:10→22:00)
[2017-04-07] MEDS: ACETAMINOPHEN TAB 650MG DOSE (2X325MG) PO ×2 (10:52→15:00)
[2017-04-07 11:49] LABS: BEDSIDE GLUCOSE 172 MG/DL (70-105)
[2017-04-07 19:27] LABS: BEDSIDE GLUCOSE 210 MG/DL (70-105)
[2017-04-07 20:45] LABS: BEDSIDE GLUCOSE 208 MG/DL (70-105)
[2017-04-07] MEDS: LEVEMIR (INSULIN DETEMIR) 1 UNITS/0.01ML SC (22:00)
[2017-04-07] MEDS: SIMVASTATIN 20 MG TAB PO (22:02)
[2017-04-08] MEDS: HumaLOG INSULIN (NovoLOG) PER UNIT SC ×5 (00:45→20:44)
[2017-04-08 00:48] LABS: BEDSIDE GLUCOSE 285 MG/DL (70-105)
[2017-04-08] MEDS: HYDROmorphone HCL 1 MG/ML SYRINGE (J1170) IV ×5 (04:57→22:42)
[2017-04-08] MEDS: SIMETHICONE 80 MG CHEW TAB PO ×3 (04:57→16:59)
[2017-04-08] MEDS: HEPARIN SOD (PORCINE) 5000 UNITS/ML VIAL SC ×3 (04:58→21:14)
[2017-04-08] MEDS: SODIUM CHLORIDE 0.9% INJ 10 ML SYR IV ×5 (04:58→16:58)
[2017-04-08 06:08] LABS: BEDSIDE GLUCOSE 214 MG/DL (70-105)
[2017-04-08] MEDS: SYMBICORT 160/4.5MCG INHALER 6GM INH ×2 (07:59→21:44)
[2017-04-08] MEDS: LACTULOSE 20 GM/30 ML SYRUP UD PO ×3 (08:38→21:13)
[2017-04-08] MEDS: SUCRALFATE SUSP 1GM/10ML UD PO ×4 (08:39→21:13)
[2017-04-08] MEDS: PANTOPRAZOLE 40MG INJ (PROTONIX) (C9113) IV (08:39)
[2017-04-08] MEDS: tiZANidine 4 MG TAB PO ×2 (08:41→21:13)
[2017-04-08] MEDS: MULTIVITAMINS/MINERALS THERAP 1 TAB PO (08:42)
[2017-04-08] MEDS: LORATADINE 10 MG TAB PO (08:42)
[2017-04-08] MEDS: guaiFENesin ER 600 MG TAB PO ×2 (08:42→21:13)
[2017-04-08] MEDS: CETIRIZINE (ZyrTEC) 10 MG TAB PO (08:42)
[2017-04-08] MEDS: GEMFIBROZIL 600 MG TAB PO (08:42)
[2017-04-08] MEDS: POTASSIUM CHLORIDE 10 MEQ SR TABLET PO (08:42)
[2017-04-08] MEDS: METOCLOPRAMIDE 10 MG TAB PO ×4 (08:43→21:14)
[2017-04-08] MEDS: AMITRIPTYLINE 50 MG TAB PO ×2 (08:43→21:14)
[2017-04-08] MEDS: AZELASTINE 137MCG NASAL SPY 30 ML (ASTELIN) ×2 (08:44→21:16)
[2017-04-08 11:57] LABS: BEDSIDE GLUCOSE 213 MG/DL (70-105)
[2017-04-08] MEDS: ONDANSETRON 4MG/2ML VIAL (J2405) IV ×2 (13:36→17:49)
[2017-04-08 17:09] LABS: BEDSIDE GLUCOSE 184 MG/DL (70-105)
[2017-04-08] MEDS: ACETAMINOPHEN TAB 650MG DOSE (2X325MG) PO (19:33)
[2017-04-08 21:00] LABS: BEDSIDE GLUCOSE 234 MG/DL (70-105)
[2017-04-08] MEDS: SIMVASTATIN 20 MG TAB PO (21:13)
[2017-04-08] MEDS: LEVEMIR (INSULIN DETEMIR) 1 UNITS/0.01ML SC (21:15)
[2017-04-09] MEDS: SIMETHICONE 80 MG CHEW TAB PO ×3 (01:02→11:57)
[2017-04-09] MEDS: CETACAINE SPRAY 5GM TOP (01:32)
[2017-04-09] MEDS: HYDROmorphone HCL 1 MG/ML SYRINGE (J1170) IV ×4 (04:14→20:28)
[2017-04-09] MEDS: ONDANSETRON 4MG/2ML VIAL (J2405) IV ×3 (04:14→20:28)
[2017-04-09] MEDS: SODIUM CHLORIDE 0.9% INJ 10 ML SYR IV ×4 (06:00→17:54)
[2017-04-09] MEDS: HEPARIN SOD (PORCINE) 5000 UNITS/ML VIAL SC ×3 (06:52→20:28)
[2017-04-09 07:20] LABS: BEDSIDE GLUCOSE 383 MG/DL (70-105)
[2017-04-09] MEDS: HumaLOG INSULIN (NovoLOG) PER UNIT SC ×3 (07:30→17:53)
[2017-04-09] MEDS: SYMBICORT 160/4.5MCG INHALER 6GM INH ×2 (07:50→19:36)
[2017-04-09] MEDS: SUCRALFATE SUSP 1GM/10ML UD PO ×2 (09:34→11:56)
[2017-04-09] MEDS: PANTOPRAZOLE 40MG INJ (PROTONIX) (C9113) IV (09:35)
[2017-04-09] MEDS: LACTULOSE 20 GM/30 ML SYRUP UD PO ×2 (09:35→15:32)
[2017-04-09] MEDS: LORATADINE 10 MG TAB PO (09:36)
[2017-04-09] MEDS: AMITRIPTYLINE 50 MG TAB PO ×2 (09:36→20:30)
[2017-04-09] MEDS: GEMFIBROZIL 600 MG TAB PO (09:36)
[2017-04-09] MEDS: METOCLOPRAMIDE 10 MG TAB PO ×2 (09:36→11:56)
[2017-04-09] MEDS: guaiFENesin ER 600 MG TAB PO (09:37)
[2017-04-09] MEDS: CETIRIZINE (ZyrTEC) 10 MG TAB PO (09:37)
[2017-04-09] MEDS: tiZANidine 4 MG TAB PO ×2 (09:37→20:30)
[2017-04-09] MEDS: POTASSIUM CHLORIDE 10 MEQ SR TABLET PO (09:37)
[2017-04-09] MEDS: MULTIVITAMINS/MINERALS THERAP 1 TAB PO (09:37)
[2017-04-09] MEDS: AZELASTINE 137MCG NASAL SPY 30 ML (ASTELIN) ×2 (09:39→20:30)
[2017-04-09 12:07] LABS: BEDSIDE GLUCOSE 317 MG/DL (70-105)
[2017-04-09 17:11] LABS: BEDSIDE GLUCOSE 288 MG/DL (70-105)
[2017-04-09] MEDS: LR 1,000 ML IV (17:15)
[2017-04-09] MEDS: METOCLOPRAMIDE INJ 10MG/2ML VIAL (J2765) IV (17:55)
[2017-04-09] MEDS: LEVEMIR (INSULIN DETEMIR) 1 UNITS/0.01ML SC (20:29)
[2017-04-10] MEDS: METOCLOPRAMIDE INJ 10MG/2ML VIAL (J2765) IV ×4 (00:35→17:47)
[2017-04-10] MEDS: HYDROmorphone HCL 1 MG/ML SYRINGE (J1170) IV ×6 (00:35→22:20)
[2017-04-10 00:36] LABS: BEDSIDE GLUCOSE 300 MG/DL (70-105)
[2017-04-10] MEDS: HumaLOG INSULIN (NovoLOG) PER UNIT SC ×4 (00:36→17:48)
[2017-04-10] MEDS: SODIUM CHLORIDE 0.9% INJ 10 ML SYR IV ×3 (05:41→17:48)
[2017-04-10 06:01] LABS: BASO % 0.4 % (0.0-1.0); EOS % 0.4 % (0.0-3.0); HEMATOCRIT 30.9 % (36.0-47.0); HEMOGLOBIN 9.9 g/dl (12.0-16.0); IMMATURE GRANULOCYTE # 0.1 10^3/uL (0-0); IMMATURE GRANULOCYTE % 0.9 % (0-0); LYMPH # 1.2 10^3/uL (1.5-4.5); LYMPH % 14.9 % (24.0-44.0); MEAN CORPUSCULAR HEMOGLOBIN 29.9 pg (27.0-33.0); MEAN CORPUSCULAR VOLUME 93.4 fl (80.0-96.0); MONO # 0.9 10^3/uL (0.0-0.8); MONO % 10.5 % (0.0-5.0); NEUTROPHILS # 5.9 10^3/uL (1.8-7.7); NEUTROPHILS % 72.9 % (36.0-66.0); PLATELET COUNT, AUTOMATED 331 10^3/uL (150-450); RED BLOOD COUNT 3.31 10^6/uL (4.00-5.40); RED CELL DISTRIBUTION WIDTH 13.8 % (11.5-14.5); WHITE BLOOD COUNT 8.1 10^3/uL (4.0-10.0)
[2017-04-10] MEDS: HEPARIN SOD (PORCINE) 5000 UNITS/ML VIAL SC ×3 (06:46→22:18)
[2017-04-10 06:49] LABS: ANION GAP 9 MEQ/L (8-16); BLOOD UREA NITROGEN 19 MG/DL (7-18); CALCIUM LEVEL 9.4 MG/DL (8.5-10.1); CARBON DIOXIDE LEVEL 26 MEQ/L (21-32); CHLORIDE LEVEL 104 MEQ/L (98-107); GLOMERULAR FILTRATION RATE > 60.0 (>51); GLUCOSE, FASTING 284 MG/DL (70-105); MAGNESIUM LEVEL 1.6 MG/DL (1.8-2.4); POTASSIUM SERUM 3.8 MEQ/L (3.5-5.1); SODIUM LEVEL 139 MEQ/L (136-145)
[2017-04-10 06:50] LABS: BEDSIDE GLUCOSE 276 MG/DL (70-105)
[2017-04-10] MEDS: SYMBICORT 160/4.5MCG INHALER 6GM INH ×2 (08:10→19:38)
[2017-04-10] MEDS: PANTOPRAZOLE 40MG INJ (PROTONIX) (C9113) IV (09:11)
[2017-04-10] MEDS: AMITRIPTYLINE 50 MG TAB PO ×2 (09:12→22:18)
[2017-04-10] MEDS: AZELASTINE 137MCG NASAL SPY 30 ML (ASTELIN) ×2 (09:12→22:19)
[2017-04-10] MEDS: tiZANidine 4 MG TAB PO ×2 (09:12→22:18)
[2017-04-10] MEDS: LR 1,000 ML IV (09:14)
[2017-04-10 12:22] LABS: BEDSIDE GLUCOSE 222 MG/DL (70-105)
[2017-04-10] MEDS: MAG SULF 1GM/100ML (MAG RUN) 1 GM in APPROPRIATE DILUENT 1 EA IV (12:38)
[2017-04-10 20:53] LABS: BEDSIDE GLUCOSE 128 MG/DL (70-105)
[2017-04-10] MEDS: LEVEMIR (INSULIN DETEMIR) 1 UNITS/0.01ML SC (21:00)
[2017-04-10 23:50] LABS: BEDSIDE GLUCOSE 161 MG/DL (70-105)
[2017-04-11] MEDS: HumaLOG INSULIN (NovoLOG) PER UNIT SC ×4 (00:55→18:14)
[2017-04-11] MEDS: METOCLOPRAMIDE INJ 10MG/2ML VIAL (J2765) IV ×4 (00:55→17:17)
[2017-04-11] MEDS: HYDROmorphone HCL 1 MG/ML SYRINGE (J1170) IV ×6 (02:34→20:20)
[2017-04-11] MEDS: LR 1,000 ML IV ×2 (02:35→18:14)
[2017-04-11] MEDS: SODIUM CHLORIDE 0.9% INJ 10 ML SYR IV ×3 (06:00→17:16)
[2017-04-11 06:15] LABS: BEDSIDE GLUCOSE 89 MG/DL (70-105)
[2017-04-11] MEDS: HEPARIN SOD (PORCINE) 5000 UNITS/ML VIAL SC ×3 (06:48→20:21)
[2017-04-11 06:59] LABS: BEDSIDE GLUCOSE 138 MG/DL (70-105)
[2017-04-11] MEDS: SYMBICORT 160/4.5MCG INHALER 6GM INH ×2 (07:19→19:41)
[2017-04-11] MEDS: tiZANidine 4 MG TAB PO ×2 (08:56→20:19)
[2017-04-11] MEDS: AMITRIPTYLINE 50 MG TAB PO ×2 (08:56→20:19)
[2017-04-11] MEDS: PANTOPRAZOLE 40MG INJ (PROTONIX) (C9113) IV (08:57)
[2017-04-11] MEDS: AZELASTINE 137MCG NASAL SPY 30 ML (ASTELIN) ×2 (08:59→20:21)
[2017-04-11 11:49] LABS: BEDSIDE GLUCOSE 129 MG/DL (70-105)
[2017-04-11] MEDS: MIRALAX *UNIT DOSE* 17GM PACKET NG (14:51)
[2017-04-11] MEDS: FLEET ENEMA XX (14:58)
[2017-04-11] MEDS: LACTULOSE 20 GM/30 ML SYRUP UD NG ×2 (14:59→20:19)
[2017-04-11] MEDS: ONDANSETRON 4MG/2ML VIAL (J2405) IV (16:20)
[2017-04-11] MEDS ORDERED: HYDROmorphone HCL 1 MG/ML SYRINGE (J1170) IV (16:39)
[2017-04-11] MEDS: BISACODYL 10 MG SUPP XX (17:15)
[2017-04-11 18:10] LABS: BEDSIDE GLUCOSE 110 MG/DL (70-105)
[2017-04-11] MEDS: MULTIVITAMIN -ADULT INJECTION 10 ML, CR/CU/SE/MN/ZN INJ 1 ML in AMINO AC/ELECTROLYTE/DE... IV (18:10)
[2017-04-11] MEDS: LEVEMIR (INSULIN DETEMIR) 1 UNITS/0.01ML SC (20:21)
[2017-04-12 00:14] LABS: BEDSIDE GLUCOSE 263 MG/DL (70-105)
[2017-04-12] MEDS: METOCLOPRAMIDE INJ 10MG/2ML VIAL (J2765) IV ×4 (00:59→18:54)
[2017-04-12] MEDS: HYDROmorphone HCL 1 MG/ML SYRINGE (J1170) IV ×5 (01:00→22:12)
[2017-04-12] MEDS: HumaLOG INSULIN (NovoLOG) PER UNIT SC ×4 (01:01→18:55)
[2017-04-12 05:30] LABS: MAGNESIUM LEVEL 2.2 MG/DL (1.8-2.4)
[2017-04-12] MEDS: SODIUM CHLORIDE 0.9% INJ 10 ML SYR IV ×3 (06:00→18:54)
[2017-04-12 06:37] LABS: BEDSIDE GLUCOSE 237 MG/DL (70-105)
[2017-04-12] MEDS: HEPARIN SOD (PORCINE) 5000 UNITS/ML VIAL SC ×3 (06:44→22:12)
[2017-04-12] MEDS: SYMBICORT 160/4.5MCG INHALER 6GM INH ×2 (07:48→21:00)
[2017-04-12] MEDS: LACTULOSE 20 GM/30 ML SYRUP UD NG ×2 (08:41→22:12)
[2017-04-12] MEDS: tiZANidine 4 MG TAB PO ×2 (08:42→22:13)
[2017-04-12] MEDS: PANTOPRAZOLE 40MG INJ (PROTONIX) (C9113) IV (08:42)
[2017-04-12] MEDS: AMITRIPTYLINE 50 MG TAB PO ×2 (08:43→22:13)
[2017-04-12] MEDS: AZELASTINE 137MCG NASAL SPY 30 ML (ASTELIN) ×2 (08:45→21:00)
[2017-04-12] MEDS: LR 1,000 ML IV (11:55)
[2017-04-12 12:21] LABS: BEDSIDE GLUCOSE 289 MG/DL (70-105)
[2017-04-12] MEDS: AMINO AC/ELECTROLYTE/DEX/CALC 2,566 ML IV (18:54)
[2017-04-12 19:18] LABS: BEDSIDE GLUCOSE 319 MG/DL (70-105)
[2017-04-12] MEDS: LEVEMIR (INSULIN DETEMIR) 1 UNITS/0.01ML SC (22:13)
[2017-04-13 00:26] LABS: BEDSIDE GLUCOSE 305 MG/DL (70-105)
[2017-04-13] MEDS: METOCLOPRAMIDE INJ 10MG/2ML VIAL (J2765) IV ×4 (03:04→18:21)
[2017-04-13] MEDS: HYDROmorphone HCL 1 MG/ML SYRINGE (J1170) IV ×5 (03:04→20:57)
[2017-04-13] MEDS: HumaLOG INSULIN (NovoLOG) PER UNIT SC ×4 (03:05→18:21)
[2017-04-13] MEDS: LR 1,000 ML IV ×2 (04:35→21:15)
[2017-04-13] MEDS: HEPARIN SOD (PORCINE) 5000 UNITS/ML VIAL SC ×3 (06:12→22:08)
[2017-04-13] MEDS: SODIUM CHLORIDE 0.9% INJ 10 ML SYR IV ×3 (06:12→18:20)
[2017-04-13 06:31] LABS: HEMOGLOBIN 9.6 g/dl (12.0-16.0); MEAN CORPUSCULAR HEMOGLOBIN 29.9 pg (27.0-33.0); MEAN CORPUSCULAR VOLUME 93.5 fl (80.0-96.0); PLATELET COUNT, AUTOMATED 319 10^3/uL (150-450); RED BLOOD COUNT 3.21 10^6/uL (4.00-5.40); WHITE BLOOD COUNT 7.2 10^3/uL (4.0-10.0)
[2017-04-13 06:55] LABS: ALBUMIN 2.6 GM/DL (3.2-5.2); ALBUMIN/GLOBULIN RATIO 0.54 (1.00-1.93); ALKALINE PHOSPHATASE 88 U/L (45-117); ALT/SGPT 17 U/L (12-78); ANION GAP 10 MEQ/L (8-16); AST/SGOT 11 U/L (7-37); BILIRUBIN,TOTAL 0.1 MG/DL (0.2-1.0); BLOOD UREA NITROGEN 17 MG/DL (7-18); CALCIUM LEVEL 9.6 MG/DL (8.5-10.1); CARBON DIOXIDE LEVEL 26 MEQ/L (21-32); CHLORIDE LEVEL 103 MEQ/L (98-107); CREATININE FOR GFR 0.52 MG/DL (0.55-1.02); GLOMERULAR FILTRATION RATE > 60.0 (>51); GLUCOSE, FASTING 268 MG/DL (70-105); SODIUM LEVEL 139 MEQ/L (136-145); TOTAL PROTEIN 7.4 GM/DL (6.4-8.2)
[2017-04-13] MEDS: LACTULOSE 20 GM/30 ML SYRUP UD NG ×2 (08:02→22:07)
[2017-04-13] MEDS: tiZANidine 4 MG TAB PO ×2 (08:03→22:08)
[2017-04-13] MEDS: AMITRIPTYLINE 50 MG TAB PO ×2 (08:03→22:08)
[2017-04-13] MEDS: PANTOPRAZOLE 40MG INJ (PROTONIX) (C9113) IV (08:03)
[2017-04-13] MEDS: AZELASTINE 137MCG NASAL SPY 30 ML (ASTELIN) ×2 (08:03→22:10)
[2017-04-13] MEDS: SYMBICORT 160/4.5MCG INHALER 6GM INH ×2 (09:06→19:51)
[2017-04-13] MEDS: ONDANSETRON 4MG/2ML VIAL (J2405) IV (10:56)
[2017-04-13 12:14] LABS: BEDSIDE GLUCOSE 196 MG/DL (70-105)
[2017-04-13] MEDS: KCL 10MEQ IN 100ML SWI (KRUN) 10 MEQ in APPROPRIATE DILUENT 1 EA IV ×2 (14:30→14:36)
[2017-04-13] MEDS: AMINO AC/ELECTROLYTE/DEX/CALC 2,566 ML IV (18:20)
[2017-04-13 21:16] LABS: BEDSIDE GLUCOSE 171 MG/DL (70-105)
[2017-04-13] MEDS: LEVEMIR (INSULIN DETEMIR) 1 UNITS/0.01ML SC (22:09)
[2017-04-14] MEDS: METOCLOPRAMIDE INJ 10MG/2ML VIAL (J2765) IV ×3 (01:15→12:13)
[2017-04-14] MEDS: HYDROmorphone HCL 1 MG/ML SYRINGE (J1170) IV ×5 (01:16→22:40)
[2017-04-14] MEDS: HumaLOG INSULIN (NovoLOG) PER UNIT SC ×5 (01:17→23:49)
[2017-04-14 01:25] LABS: BEDSIDE GLUCOSE 368 MG/DL (70-105)
[2017-04-14] MEDS: ONDANSETRON 4MG/2ML VIAL (J2405) IV ×2 (04:09→19:00)
[2017-04-14] MEDS: ACETAMINOPHEN TAB 650MG DOSE (2X325MG) PO (04:10)
[2017-04-14] MEDS: SODIUM CHLORIDE 0.9% INJ 10 ML SYR IV ×3 (06:00→17:37)
[2017-04-14 06:03] LABS: BEDSIDE GLUCOSE 315 MG/DL (70-105)
[2017-04-14] MEDS: HEPARIN SOD (PORCINE) 5000 UNITS/ML VIAL SC ×3 (06:40→21:17)
[2017-04-14] MEDS: SYMBICORT 160/4.5MCG INHALER 6GM INH ×2 (07:49→22:07)
[2017-04-14 08:14] LABS: ANION GAP 9 MEQ/L (8-16); CARBON DIOXIDE LEVEL 26 MEQ/L (21-32); CHLORIDE LEVEL 101 MEQ/L (98-107); MAGNESIUM LEVEL 1.7 MG/DL (1.8-2.4); POTASSIUM SERUM 3.4 MEQ/L (3.5-5.1); SODIUM LEVEL 136 MEQ/L (136-145)
[2017-04-14] MEDS: PANTOPRAZOLE 40MG INJ (PROTONIX) (C9113) IV (09:55)
[2017-04-14] MEDS: tiZANidine 4 MG TAB PO ×2 (09:55→21:22)
[2017-04-14] MEDS: LACTULOSE 20 GM/30 ML SYRUP UD NG ×2 (09:55→21:17)
[2017-04-14] MEDS: AMITRIPTYLINE 50 MG TAB PO ×2 (09:55→21:22)
[2017-04-14] MEDS: AZELASTINE 137MCG NASAL SPY 30 ML (ASTELIN) ×2 (09:57→21:16)
[2017-04-14 12:15] LABS: BEDSIDE GLUCOSE 379 MG/DL (70-105)
[2017-04-14] MEDS: MAG SULF 1GM/100ML (MAG RUN) 1 GM in APPROPRIATE DILUENT 1 EA IV (12:57)
[2017-04-14] MEDS: LR 1,000 ML IV (13:55)
[2017-04-14] MEDS: KCL 10MEQ IN 100ML SWI (KRUN) 10 MEQ in APPROPRIATE DILUENT 1 EA IV ×2 (14:07→16:45)
[2017-04-14] MEDS: DOCUSATE SODIUM 100 MG CAP PO ×2 (16:45→21:22)
[2017-04-14 17:31] LABS: BEDSIDE GLUCOSE 316 MG/DL (70-105)
[2017-04-14] MEDS: AMINO AC/ELECTROLYTE/DEX/CALC 2,566 ML IV (19:00)
[2017-04-14] MEDS: LEVEMIR (INSULIN DETEMIR) 1 UNITS/0.01ML SC (21:22)
[2017-04-14] MEDS: MIRALAX *UNIT DOSE* 17GM PACKET PO (21:23)
[2017-04-14 23:52] LABS: BEDSIDE GLUCOSE 270 MG/DL (70-105)
[2017-04-15] MEDS: ONDANSETRON 4MG/2ML VIAL (J2405) IV ×2 (01:11→20:40)
[2017-04-15] MEDS: HYDROmorphone HCL 1 MG/ML SYRINGE (J1170) IV ×3 (03:46→18:49)
[2017-04-15] MEDS: HEPARIN SOD (PORCINE) 5000 UNITS/ML VIAL SC ×3 (05:25→22:08)
[2017-04-15] MEDS: SODIUM CHLORIDE 0.9% INJ 10 ML SYR IV ×7 (05:26→20:42)
[2017-04-15 05:44] LABS: HEMATOCRIT 31.2 % (36.0-47.0); HEMOGLOBIN 9.9 g/dl (12.0-16.0); MEAN CORPUSCULAR HEMOGLOBIN 29.8 pg (27.0-33.0); MEAN CORPUSCULAR HGB CONC 31.7 g/dl (32.0-36.5); PLATELET COUNT, AUTOMATED 286 10^3/uL (150-450); RED BLOOD COUNT 3.32 10^6/uL (4.00-5.40); RED CELL DISTRIBUTION WIDTH 13.7 % (11.5-14.5); WHITE BLOOD COUNT 5.7 10^3/uL (4.0-10.0)
[2017-04-15 06:03] LABS: ANION GAP 10 MEQ/L (8-16); BLOOD UREA NITROGEN 8 MG/DL (7-18); CALCIUM LEVEL 9.3 MG/DL (8.5-10.1); CARBON DIOXIDE LEVEL 26 MEQ/L (21-32); CHLORIDE LEVEL 101 MEQ/L (98-107); CREATININE FOR GFR 0.58 MG/DL (0.55-1.02); GLOMERULAR FILTRATION RATE > 60.0 (>51); GLUCOSE, FASTING 306 MG/DL (70-105); MAGNESIUM LEVEL 1.8 MG/DL (1.8-2.4); POTASSIUM SERUM 3.8 MEQ/L (3.5-5.1); SODIUM LEVEL 137 MEQ/L (136-145)
[2017-04-15] MEDS: HumaLOG INSULIN (NovoLOG) PER UNIT SC ×3 (06:18→18:30)
[2017-04-15] MEDS: SYMBICORT 160/4.5MCG INHALER 6GM INH ×2 (09:03→20:52)
[2017-04-15] MEDS: DOCUSATE SODIUM 100 MG CAP PO ×3 (09:32→22:07)
[2017-04-15] MEDS: AMITRIPTYLINE 50 MG TAB PO ×2 (09:32→22:07)
[2017-04-15] MEDS: LACTULOSE 20 GM/30 ML SYRUP UD NG ×2 (09:32→22:06)
[2017-04-15] MEDS: tiZANidine 4 MG TAB PO ×2 (09:32→22:07)
[2017-04-15] MEDS: PANTOPRAZOLE 40MG INJ (PROTONIX) (C9113) IV (09:33)
[2017-04-15] MEDS: MIRALAX *UNIT DOSE* 17GM PACKET PO ×2 (09:33→22:06)
[2017-04-15] MEDS: AZELASTINE 137MCG NASAL SPY 30 ML (ASTELIN) ×2 (09:34→22:08)
[2017-04-15 11:36] LABS: BEDSIDE GLUCOSE 237 MG/DL (70-105)
[2017-04-15 17:17] LABS: BEDSIDE GLUCOSE 319 MG/DL (70-105)
[2017-04-15] MEDS ORDERED: AMINO AC/ELECTROLYTE/DEX/CALC 1,540 ML IV (18:00)
[2017-04-15] MEDS: AMINO AC/ELECTROLYTE/DEX/CALC 2,566 ML IV (18:30)
[2017-04-15] MEDS: LEVEMIR (INSULIN DETEMIR) 1 UNITS/0.01ML SC (22:08)
[2017-04-16 00:21] LABS: BEDSIDE GLUCOSE 325 MG/DL (70-105)
[2017-04-16] MEDS: HYDROmorphone HCL 1 MG/ML SYRINGE (J1170) IV ×5 (00:24→21:45)
[2017-04-16] MEDS: HumaLOG INSULIN (NovoLOG) PER UNIT SC ×5 (00:24→23:58)
[2017-04-16] MEDS: ONDANSETRON 4MG/2ML VIAL (J2405) IV ×2 (05:43→15:21)
[2017-04-16 06:19] LABS: BEDSIDE GLUCOSE 340 MG/DL (70-105)
[2017-04-16] MEDS: HEPARIN SOD (PORCINE) 5000 UNITS/ML VIAL SC ×3 (06:47→21:36)
[2017-04-16] MEDS: SODIUM CHLORIDE 0.9% INJ 10 ML SYR IV ×6 (06:47→17:23)
[2017-04-16] MEDS: SYMBICORT 160/4.5MCG INHALER 6GM INH ×2 (07:30→21:24)
[2017-04-16] MEDS: AZELASTINE 137MCG NASAL SPY 30 ML (ASTELIN) ×2 (08:33→21:37)
[2017-04-16] MEDS: PANTOPRAZOLE 40MG INJ (PROTONIX) (C9113) IV (08:33)
[2017-04-16] MEDS: MIRALAX *UNIT DOSE* 17GM PACKET PO ×2 (08:33→21:35)
[2017-04-16] MEDS: DOCUSATE SODIUM 100 MG CAP PO ×3 (08:33→21:35)
[2017-04-16] MEDS: tiZANidine 4 MG TAB PO ×2 (08:33→21:35)
[2017-04-16] MEDS: AMITRIPTYLINE 50 MG TAB PO ×2 (08:33→21:37)
[2017-04-16] MEDS: LACTULOSE 20 GM/30 ML SYRUP UD NG ×2 (08:33→21:35)
[2017-04-16 12:16] LABS: BEDSIDE GLUCOSE 308 MG/DL (70-105)
[2017-04-16 16:53] LABS: BEDSIDE GLUCOSE 282 MG/DL (70-105)
[2017-04-16 20:19] LABS: BEDSIDE GLUCOSE 174 MG/DL (70-105)
[2017-04-16] MEDS ORDERED: LEVEMIR (INSULIN DETEMIR) 1 UNITS/0.01ML SC (21:00)
[2017-04-16] MEDS: LEVEMIR (INSULIN DETEMIR) 1 UNITS/0.01ML SC (21:37)
[2017-04-16 23:36] LABS: BEDSIDE GLUCOSE 282 MG/DL (70-105)
[2017-04-17] MEDS: HYDROmorphone HCL 1 MG/ML SYRINGE (J1170) IV ×4 (03:35→21:05)
[2017-04-17 05:29] LABS: BEDSIDE GLUCOSE 209 MG/DL (70-105)
[2017-04-17] MEDS: SODIUM CHLORIDE 0.9% INJ 10 ML SYR IV ×7 (05:29→18:00)
[2017-04-17] MEDS: HEPARIN SOD (PORCINE) 5000 UNITS/ML VIAL SC ×3 (05:29→21:22)
[2017-04-17] MEDS: HumaLOG INSULIN (NovoLOG) PER UNIT SC ×4 (05:29→23:50)
[2017-04-17] MEDS: SYMBICORT 160/4.5MCG INHALER 6GM INH ×2 (08:36→20:55)
[2017-04-17] MEDS: tiZANidine 4 MG TAB PO ×2 (09:03→20:19)
[2017-04-17] MEDS: LACTULOSE 20 GM/30 ML SYRUP UD NG ×2 (09:03→20:18)
[2017-04-17] MEDS: PANTOPRAZOLE 40MG INJ (PROTONIX) (C9113) IV (09:03)
[2017-04-17] MEDS: DOCUSATE SODIUM 100 MG CAP PO ×3 (09:03→20:18)
[2017-04-17] MEDS: AMITRIPTYLINE 50 MG TAB PO ×2 (09:03→20:18)
[2017-04-17] MEDS: MIRALAX *UNIT DOSE* 17GM PACKET PO ×2 (09:04→20:18)
[2017-04-17] MEDS: AZELASTINE 137MCG NASAL SPY 30 ML (ASTELIN) ×2 (09:05→20:20)
[2017-04-17 12:14] LABS: BEDSIDE GLUCOSE 209 MG/DL (70-105)
[2017-04-17 17:32] LABS: BEDSIDE GLUCOSE 158 MG/DL (70-105)
[2017-04-17] MEDS: ONDANSETRON 4MG/2ML VIAL (J2405) IV (17:59)
[2017-04-17 20:09] LABS: BEDSIDE GLUCOSE 133 MG/DL (70-105)
[2017-04-17] MEDS: LEVEMIR (INSULIN DETEMIR) 1 UNITS/0.01ML SC (20:20)
[2017-04-17 23:48] LABS: BEDSIDE GLUCOSE 285 MG/DL (70-105)
[2017-04-18] MEDS: SODIUM CHLORIDE 0.9% INJ 10 ML SYR IV ×2 (02:56→06:00)
[2017-04-18] MEDS: HYDROmorphone HCL 1 MG/ML SYRINGE (J1170) IV ×3 (02:56→13:51)
[2017-04-18 05:32] LABS: HEMATOCRIT 32.4 % (36.0-47.0); HEMOGLOBIN 10.2 g/dl (12.0-16.0); MEAN CORPUSCULAR HEMOGLOBIN 29.5 pg (27.0-33.0); MEAN CORPUSCULAR HGB CONC 31.5 g/dl (32.0-36.5); MEAN CORPUSCULAR VOLUME 93.6 fl (80.0-96.0); PLATELET COUNT, AUTOMATED 276 10^3/uL (150-450); RED BLOOD COUNT 3.46 10^6/uL (4.00-5.40); RED CELL DISTRIBUTION WIDTH 13.8 % (11.5-14.5); WHITE BLOOD COUNT 6.3 10^3/uL (4.0-10.0)
[2017-04-18 05:49] LABS: ALBUMIN 2.8 GM/DL (3.2-5.2); ALKALINE PHOSPHATASE 103 U/L (45-117); ALT/SGPT 37 U/L (12-78); ANION GAP 9 MEQ/L (8-16); AST/SGOT 31 U/L (7-37); BILIRUBIN,TOTAL 0.2 MG/DL (0.2-1.0); BLOOD UREA NITROGEN 7 MG/DL (7-18); CALCIUM LEVEL 9.5 MG/DL (8.5-10.1); CARBON DIOXIDE LEVEL 27 MEQ/L (21-32); CHLORIDE LEVEL 103 MEQ/L (98-107); GLOMERULAR FILTRATION RATE > 60.0 (>51); GLUCOSE, FASTING 191 MG/DL (70-105); MAGNESIUM LEVEL 1.5 MG/DL (1.8-2.4); SODIUM LEVEL 139 MEQ/L (136-145); TOTAL PROTEIN 6.8 GM/DL (6.4-8.2)
[2017-04-18] MEDS: HEPARIN SOD (PORCINE) 5000 UNITS/ML VIAL SC (06:02)
[2017-04-18] MEDS: HumaLOG INSULIN (NovoLOG) PER UNIT SC ×2 (06:03→12:22)
[2017-04-18] MEDS: MIRALAX *UNIT DOSE* 17GM PACKET PO (08:33)
[2017-04-18] MEDS: LACTULOSE 20 GM/30 ML SYRUP UD NG (08:33)
[2017-04-18] MEDS: tiZANidine 4 MG TAB PO (08:34)
[2017-04-18] MEDS: PANTOPRAZOLE 40MG INJ (PROTONIX) (C9113) IV (08:34)
[2017-04-18] MEDS: AMITRIPTYLINE 50 MG TAB PO (08:34)
[2017-04-18] MEDS: DOCUSATE SODIUM 100 MG CAP PO (08:34)
[2017-04-18] MEDS: MAG SULF 1GM/100ML (MAG RUN) 1 GM in APPROPRIATE DILUENT 1 EA IV ×2 (08:35→09:50)
[2017-04-18] MEDS: AZELASTINE 137MCG NASAL SPY 30 ML (ASTELIN) (08:35)
[2017-04-18] MEDS: SYMBICORT 160/4.5MCG INHALER 6GM INH (09:31)
[2017-04-18 11:58] LABS: BEDSIDE GLUCOSE 287 MG/DL (70-105)
== END 2017-04-18 15:00 | disposition home health service (06) | DRG 227 ==
LOC: M ICU 03-29 11:32 → M MS4PR 04-14 17:08 → M ED 13:34 → M MSPAV 03-29 17:16 → M ED INP 17:35 → M MSPAV 20:41
PROC: 0WUF0JZ Supplement Abdominal Wall with Synthetic Substitute, Open Approach (ICD-10-PCS; principal; 2017-04-04 12:50)
PROC: 02HV33Z Insertion of Infusion Device into Superior Vena Cava, Percutaneous Approach (ICD-10-PCS; 2017-04-04 12:50)
DX: K43.3 Parastomal hernia with obstruction, without gangrene (principal); E87.3 Alkalosis; J18.9 Pneumonia, unspecified organism; E11.40 Type 2 diabetes mellitus with diabetic neuropathy, unspecified; E87.1 Hypo-osmolality and hyponatremia; E83.42 Hypomagnesemia; K56.7 Ileus, unspecified; J45.909 Unspecified asthma, uncomplicated; G89.4 Chronic pain syndrome; G90.50 Complex regional pain syndrome I, unspecified; E78.5 Hyperlipidemia, unspecified; K21.9 Gastro-esophageal reflux disease without esophagitis; Z93.3 Colostomy status; Z90.710 Acquired absence of both cervix and uterus; Z90.49 Acquired absence of other specified parts of digestive tract; Z96.9 Presence of functional implant, unspecified; Z88.5 Allergy status to narcotic agent; Z88.0 Allergy status to penicillin; Z91.02 Food additives allergy status; Z88.4 Allergy status to anesthetic agent; Z88.2 Allergy status to sulfonamides; Z88.6 Allergy status to analgesic agent; Z91.040 Latex allergy status; Z79.4 Long term (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; Z79.01 Long term (current) use of anticoagulants; Z86.718 Personal history of other venous thrombosis and embolism; Y95 Nosocomial condition

== ENCOUNTER → 2017-04-02 | Outpatient (CLI) | payer OTHER ==
[~2017-04-02] MED LIST changes: -*GLUCOMETE; -*MAMMOGRAM; -*MAYHAVE; -/AMIT100TA PO; -/ESOM40CA; -/ESOM40CA OR; -/GLIM2TA; -/GLIM4TA; -/GUAIMAX PO; -/INSULEV SC; -/INSULEV SQ; -/INSUNPH SC; -/INSUREG SQ; -/IPRA3SP INH; -/ONDA4TA; -/ONDA4TA OR; -/ONDA4TA PO; -/PANT40TA PO; -/RANI15TA PO; -/SUCR1TA OR; -/SUCR1TA PO; -3 DA0.1C TOP; -A AND D TD; -ACET650T12 PO; -ACET65TA; -ADVAIR250 INHALATION; -ADVAIR500 INHALATION; -AFRI0.65; -ALBOTERNEB INHALATION; -ALBU17IN INH; -ALBU17IN2 INH; -ALBU17IN2 INJ; -ALBU83IN; -ALBU83IN IN; -ALBU83IN INH; -ALBUTEROL INH; -ALBUTEROL INH INH; -ALBUTEROL INHALATION; -ALCOHOL TOP; -ALLE180T33 PO; -ALLE25CA PO; -AMAR1TAB PO; -AMARYL PO; -AMIT10TA2 PO; -AMIT150T; -AMIT150T OR; -AMIT150T PO; -AMIT24CA PO; -AMIT50TA PO; -AMIT50TA2; -AMIT50TA2 OR; -AMIT50TA2 PO; -AMITIZA PO; -AMITRIP50 PO; -AMITRIPTYLINE; -AMITZA PO; -AMMO12LO TOP; -ASPI81TA24 PO; -ASPI81TA3 OR; -ASTELIN; -ASTELIN INH; -ASTELIN NASAL SPRAY; -ATARAX25 PO; -ATROVENT0.02% INH; -AUG875 PO; -AURASOL TOPICAL; -AZEL0.1S3; -AZELASTINE; -Amitiza PO; -BACID PO; -BACTROCREA TOPICALLY; -BACTROOINT TOPICALLY; -BATTERY; -BENA25CA2 PO; -BISA10SU2; -CALALOT TOP; -CATATTS2 TOPICALLY; -CEFD1CAP8 PO; -CEFTIN250 PO; -CEPH500C PO; -CETI10TA; -CETI10TA PO; -CHOL4PKT PO; -CHOLPOW PO; -CITR1SOL PO; -CLAR10CA3 PO; -CLAR1TAB2 PO; -CLAR5CHW OR; -CLAR5CHW PO; -CLARITD12H PO; -CLARITIN; -CLARITIN PO; -CLARITIN10 PO; -COLA100C2; -COLA100C2 OR; -COLA100C2 PO; -COLA100C5 PO; -COLA50CA3 PO; -COLACE PO; -CORTISPOR OTIC; -CYMBALTA30 PO; -CYMBALTA60 PO; -Cholestyramine PO; -DESIOIN3; -DESONIDECR TOPICAL; -DICL0.1S7 TD; -DIFLUC100 PO; -DIFLUC150 PO; -DILA2TAB OR; -DILA2TAB PO; -DILA2TAB6 PO; -DILA4TAB13 PO; -DILAUDID PO; -DIPH2.5L; -DIPH2.5L PO; -DIPH2.5T14 PO; -DOCU10CA PO; -DOXYCYC100 PO; -EFUDEX EXT; -ELIDEL 1%; -ELIDEL TOPICAL; -ELOCONCR TOPICAL; -Elavil PO; -FERR325T OR; -FERROUS325 PO; -FEXO60CA PO; -FLAGYL250 PO; -FLONASESPR NASAL; -FLOVENT110 PO; -GAS-80CH; -GEMF600T PO; -GLUC1000; -GLUC1000 OR; -GLUC1000 PO; -GLUCCOSEAC TOPICAL; -GLUCLIQ7 PO; -GLUCOP1000 PO; -GLUCOPH500 PO; -GLUCOSE TEST; -GOLYLQ PO; -HEPA100PFS IV; -HEPA1INJ4 IV; -HUMUINJ; -HUMUINJ IJ; -HUMUINJ SQ; -HUMULINR SC; -HYDR1OI TOP; -HYDR4TAB; -HYDR4TAB PO; -HYDROCCR1 TOPICAL; +HumaLOG INSULIN (NovoLOG) PER UNIT As Ordered; -IMODIUM; -INSUDET SC; -INSUH10VL SC; -INSULIN HUMULIN R; -INSULIN LEVEMIR SQ; -IPRA2IN INH; -K-TA1TAB PO; -KEFL500C17 PO; -KEFLEX250 PO; -KEFLEX500 PO; -KETO0.02 OU; -KETOTIFEN FUMARATE; -LAC-HYDRIN TOP; -LACT10SO15 PO; -LACT10SO29 PO; -LACT10SO8 OR; -LACT10SO8 PO; -LACT20EL PO; -LANCMIS; -LANCMIS SUB Q; -LANTUS SQ; -LEVA750T7 PO; -LEVAQUI250 PO; -LEVAQUI500 PO; -LIDO4CRE2 TOP; -LIDO5DIS TOP; -LIDO5DIS41 TD; -LIDOCAINE JELLY 2% TOP; -LIDOCAINE JELLY TOP; -LIDOCAINE/PRILOCAINE TOP; -LIDOPOW EXT; -LOMO2.5T PO; -LOMOTA OR; -LOMOTA PO; -LOPI600T OR; -LOPI600T PO; -LORTAB5 PO; -LORTTAB5 PO; -MACROBID PO; -MAG CITRATE PO; -MAG-TAB; -MAG400TA PO; -MAGN1INJ2 IV; -MAGN20IN4 IV; -MAGN400C2 PO; -MAGN400C3 PO; -MAGN400T5 PO; -MAGN500T2 OR; -MAGN500T2 PO; -MAGNESIUM OXIDE; -MAMMOGRAM; -MEDROLDP PO; -METF10004 PO; -METF500T13 PO; -METFORMIN; -METO10TA2; -METO5TAB2 OR; -METO5TAB2 PO; -METROCR.75 TOPICAL; -MICR10CA PO; -MILKSUS; -MILKSUS PO; -MINI2CAP; -MINI2CAP OR; -MINI2CAP PO; -MINIPRESS PO; -MIRA3350 PO; -MIRA33504 PO; -MIRALAX PO; -MIRALEX OR; -MIRALEX PO; -MOM30SS PO; -MOME50SP; -MORP15TA4; -MORP30TA4; -MORPHINE SULFATE IR; -MS C15TA5; -MS C15TA5 PO; -MUCINEX ER PO; -MUCINEX OR; -MUCINEX PO; -MULT1TAB8 PO; -MULTIVIT OR; -MULTIVIT PO; -MULTLIQ7; -MYCOLOG2; -NASA1SPR; -NASA55AE; -NASOCORT; -NASONEX NASAL; -NEEDLESFIN SQ; -NEXI40GR PO; -NEXIUM40 PO; -NORMSALNS INHALATION; -NOVO1INJ4 SC; -NOVO70VL SC; -NYSTATIN POWDER TOP; -NYSTATIN TOP; -NYSTATINCR TOPICAL; -NYSTOP TOP; -NYSTPOW4 TOP; -ONDA2VL IV; -ONDA4VLL IM; -ONDA8TAB7 PO; +ONDANSETRON 4MG/2ML VIAL (J2405) As Ordered; -PEDISOL2 PO; -PEG1POW PO; -PENN1.5S2 TD; -PENNSAID DROPS TOP; -PEPTO BISMOL PO; -PERC5TAB8 OR; -PERC7.5T8 OR; -POLYETHYLENE GLYCOL; -POTA1TAB14 PO; -POTA20TA PO; -PRAZ2CAP PO; -PRED10TA PO; -PRED20TA PO; -PREDNISO10 PO; -PREDNISO20 PO; -PREDNISO50 PO; -PREMAR1.25 PO; -PREMARI625 PO; -PREVACID15 PO; -PROAAER10 IN; -PROCTOSOL HC PR; -PROCTOSOL PR; -PROCTOSOL TOP; -PROV90AE; -PROVENTILI; -PROVENTILI INHALATION; -PYRIDIU100 PO; -PYRIDIU200 PO; -QUES4POW PO; -QUESTRAN; -RANI150T PO; -REGL10TA6 PO; -REGLAN10 PO; -ROBI30SU PO; -SALI0.9I2 IV; -SENN-22 PO; -SENN15TA2 PO; -SENN8.6T14; -SENN8.6T14 OR; -SENO8.6T10 PO; -SENO8.6T5 OR; -SENO8.6T9 PO; -SENOKOT PO; -SEREVENTIN PO; -SILVADENE TOPICAL; -SIME180C PO; -SIME80TA PO; -SIMV10TA2 PO; -SIMV20TA2 PO; -SLOWTAB; -STOO100C PO; -SUCR1TA PO; -SUCRPOW; -SYMB16INH INH; -SYMB80INH INH; -SYMBICORT; -SYMBICORT INH; -SYR.5; -SYRINS1CC SUBQ; -TAP WATER ENEMA PR; -TEQUIN400 PO; -TESS100C PO; -TESSALO100 PO; -THERGRAN PO; -TIZA2CAP3 PO; -TIZA2TA PO; -TIZA2TAB3 PO; -TOUJ1.2I SC; -TRIA55SP; -TRICOR48 PO; -TUMS500C; -TUMS500C OR; -TUMS500C PO; -TUSSIONEX PO; -TYL PO; -TYLE325T5 PO; -ULTRAM50 PO; -VALI2TAB; -VERA27.5; -VERAMYST; -VICO5TAB; -VICO5TAB OR; -VICOBULK OR; -VICODAN PO; -VICODIN PO; -VICODINES TAB; -VITMTA PO; -VOLT1GEL; -VOLT1GEL EX; -VOLT1GEL EXT; -VOLT1GEL TOP; -VOLT1GEL2 TOP; -Z-PAK PO; -ZADITOR; -ZANT150T PO; -ZANTAC150 PO; -ZITH200S OR; -ZITHROM250 PO; -ZITHROM500 PO; -ZITHROZPAK PO; -ZOCO20TA PO; -ZOFR4TAB3 PO; -ZOFR8TAB; -ZOFR8TAB4 PO; -ZYRT10CA PO; -ZYRTECD12 PO; -[UNRECOGNIZED DRUG - CODE]; -[UNRECOGNIZED DRUG - CODE]; -[UNRECOGNIZED DRUG - CODE] EXT; -[UNRECOGNIZED DRUG - CODE] IV; -[UNRECOGNIZED DRUG - CODE] PO; -[UNRECOGNIZED DRUG - CODE] PO; -[UNRECOGNIZED DRUG - CODE] PO; -[UNRECOGNIZED DRUG - CODE] PO; -[UNRECOGNIZED DRUG - CODE] TOP; -[UNRECOGNIZED DRUG - CODE] TOPICAL; -[UNRECOGNIZED DRUG - OTHER]; -[UNRECOGNIZED DRUG - OTHER]; -[UNRECOGNIZED DRUG - OTHER]; -[UNRECOGNIZED DRUG - OTHER]; -[UNRECOGNIZED DRUG - OTHER]; -[UNRECOGNIZED DRUG - OTHER]; -[UNRECOGNIZED DRUG - OTHER]; -[UNRECOGNIZED DRUG - OTHER]; -[UNRECOGNIZED DRUG - OTHER]; -[UNRECOGNIZED DRUG - OTHER] PO; -[UNRECOGNIZED DRUG - OTHER] PR; -[UNRECOGNIZED DRUG - OTHER] RECTALLY; -[UNRECOGNIZED DRUG - OTHER] SC; -[UNRECOGNIZED DRUG - OTHER] SC; -[UNRECOGNIZED DRUG - OTHER] TD; -[UNRECOGNIZED DRUG - SUPPLY]; -[UNRECOGNIZED DRUG - SUPPLY] -; -astelin; -astepro; -desitin; -diclofenac PO; -elavil; +fentaNYL 100 MCG/2 ML INJECTION (J3010) As Ordered; -lidoderm patch TD; -nasocort; -polyethylene glycol; -questran OR; -saline nasal spray; -veramyst; -voltaren gel
== END ==
LOC: M INFU 07:00
DX: E83.42 Hypomagnesemia (principal)

== ENCOUNTER 2017-04-24 08:53 | Outpatient (CLI) | payer OTHER ==
[2017-04-24] MEDS: SODIUM CHLORIDE 0.9% INJ 10 ML SYR IV (09:03)
[2017-04-24 09:49] LABS: MAGNESIUM LEVEL 1.8 MG/DL (1.8-2.4)
== END 2017-04-24 09:25 | disposition home or self-care (01) ==
LOC: M INFU 08:53
DX: E83.42 Hypomagnesemia (principal); Z79.4 Long term (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; Z79.899 Other long term (current) drug therapy; Z88.8 Allergy status to other drugs, medicaments and biological substances; Z88.1 Allergy status to other antibiotic agents; Z88.5 Allergy status to narcotic agent; Z91.018 Allergy to other foods; Z91.040 Latex allergy status; Z91.048 Other nonmedicinal substance allergy status; Z88.0 Allergy status to penicillin; Z91.02 Food additives allergy status
CPT/HCPCS: 36591

== ENCOUNTER 2017-04-25 07:38 | Outpatient (CLI) | payer OTHER ==
[2017-04-25] MEDS: ONDANSETRON 4MG/2ML VIAL (J2405) IV (07:58)
[2017-04-25] MEDS: MAGNESIUM SULFATE 1 GM/100 ML D5W BAG (10MG/ML) (J3475) IV (07:58)
[2017-04-25] MEDS: SODIUM CHLORIDE 0.9% INJ 10 ML SYR IV (12:17)
== END 2017-04-25 12:20 | disposition home or self-care (01) ==
LOC: M INFU 07:38
DX: E83.42 Hypomagnesemia (principal); Z88.8 Allergy status to other drugs, medicaments and biological substances; Z88.1 Allergy status to other antibiotic agents; Z88.5 Allergy status to narcotic agent; Z91.02 Food additives allergy status; Z91.018 Allergy to other foods; Z91.040 Latex allergy status; Z88.0 Allergy status to penicillin; Z88.2 Allergy status to sulfonamides; Z91.048 Other nonmedicinal substance allergy status; Z88.3 Allergy status to other anti-infective agents; Z79.4 Long term (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; Z79.899 Other long term (current) drug therapy; Z79.891 Long term (current) use of opiate analgesic
CPT/HCPCS: 96365

== ENCOUNTER 2017-04-30 09:54 | Outpatient (CLI) | payer OTHER ==
[2017-04-30] MEDS: SODIUM CHLORIDE 0.9% INJ 10 ML SYR IV (10:35)
[2017-04-30 11:30] LABS: MAGNESIUM LEVEL 1.8 MG/DL (1.8-2.4)
== END 2017-04-30 10:40 | disposition home or self-care (01) ==
LOC: M INFU 09:54
DX: E83.42 Hypomagnesemia (principal); Z88.8 Allergy status to other drugs, medicaments and biological substances; Z88.1 Allergy status to other antibiotic agents; Z88.5 Allergy status to narcotic agent; Z91.02 Food additives allergy status; Z91.040 Latex allergy status; Z91.018 Allergy to other foods; Z88.2 Allergy status to sulfonamides; Z88.0 Allergy status to penicillin; Z91.048 Other nonmedicinal substance allergy status; Z88.3 Allergy status to other anti-infective agents; Z79.4 Long term (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; Z79.899 Other long term (current) drug therapy; Z79.891 Long term (current) use of opiate analgesic
CPT/HCPCS: 36591

== ENCOUNTER 2017-05-02 06:32 | Outpatient (CLI) | payer OTHER ==
[2017-05-02] MEDS: ONDANSETRON 4MG/2ML VIAL (J2405) IV (06:49)
[2017-05-02] MEDS: MAGNESIUM SULFATE 1 GM/100 ML D5W BAG (10MG/ML) (J3475) IV ×4 (07:19→10:15)
[2017-05-02] MEDS: SODIUM CHLORIDE 0.9% INJ 10 ML SYR IV (11:24)
== END 2017-05-02 11:30 | disposition home or self-care (01) ==
LOC: M INFU 06:32
DX: E83.42 Hypomagnesemia (principal); Z88.8 Allergy status to other drugs, medicaments and biological substances; Z88.1 Allergy status to other antibiotic agents; Z88.5 Allergy status to narcotic agent; Z88.2 Allergy status to sulfonamides; Z88.0 Allergy status to penicillin; Z88.3 Allergy status to other anti-infective agents; Z91.02 Food additives allergy status; Z91.040 Latex allergy status; Z91.018 Allergy to other foods; Z91.048 Other nonmedicinal substance allergy status; Z79.4 Long term (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; Z79.899 Other long term (current) drug therapy; Z79.891 Long term (current) use of opiate analgesic
CPT/HCPCS: 96365

== ENCOUNTER → 2017-05-06 | Outpatient (CLI) | payer OTHER | LOC: M PAIN 14:45 | DX: M54.81 Occipital neuralgia (principal); M79.1 Myalgia; Z79.4 Long term (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; Z79.891 Long term (current) use of opiate analgesic; Z79.899 Other long term (current) drug therapy; Z88.0 Allergy status to penicillin; Z88.2 Allergy status to sulfonamides; Z88.5 Allergy status to narcotic agent; Z88.8 Allergy status to other drugs, medicaments and biological substances; Z91.048 Other nonmedicinal substance allergy status; Z91.040 Latex allergy status | CPT/HCPCS: G0463 ==

== ENCOUNTER 2017-05-07 13:52 | Outpatient (CLI) | payer OTHER ==
[2017-05-07] MEDS: SODIUM CHLORIDE 0.9% INJ 10 ML SYR IV (14:24)
[2017-05-07 15:04] LABS: MAGNESIUM LEVEL 1.8 MG/DL (1.8-2.4)
== END 2017-05-07 14:30 | disposition home or self-care (01) ==
LOC: M INFU 13:52
DX: E83.42 Hypomagnesemia (principal); Z79.4 Long term (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; Z79.891 Long term (current) use of opiate analgesic; Z79.899 Other long term (current) drug therapy; Z88.8 Allergy status to other drugs, medicaments and biological substances; Z88.1 Allergy status to other antibiotic agents; Z88.5 Allergy status to narcotic agent; Z88.0 Allergy status to penicillin; Z88.2 Allergy status to sulfonamides; Z88.3 Allergy status to other anti-infective agents; Z91.02 Food additives allergy status; Z91.040 Latex allergy status; Z91.018 Allergy to other foods; Z91.048 Other nonmedicinal substance allergy status
CPT/HCPCS: 36591

== ENCOUNTER 2017-05-09 10:19 | Outpatient (CLI) | payer OTHER ==
[2017-05-09] MEDS: ONDANSETRON 4MG/2ML VIAL (J2405) IV (10:53)
[2017-05-09] MEDS: MAGNESIUM SULFATE 1 GM/100 ML D5W BAG (10MG/ML) (J3475) IV (10:54)
[2017-05-09] MEDS: SODIUM CHLORIDE 0.9% INJ 10 ML SYR IV (15:03)
== END 2017-05-09 15:15 | disposition home or self-care (01) ==
LOC: M INFU 10:19
DX: E83.42 Hypomagnesemia (principal); Z88.5 Allergy status to narcotic agent; Z88.1 Allergy status to other antibiotic agents; Z88.8 Allergy status to other drugs, medicaments and biological substances; Z88.3 Allergy status to other anti-infective agents; Z88.2 Allergy status to sulfonamides; Z88.0 Allergy status to penicillin; Z91.02 Food additives allergy status; Z91.048 Other nonmedicinal substance allergy status; Z91.040 Latex allergy status; Z91.018 Allergy to other foods; Z79.4 Long term (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; Z79.899 Other long term (current) drug therapy; Z79.891 Long term (current) use of opiate analgesic
CPT/HCPCS: 96365

== ENCOUNTER → 2017-05-13 | Outpatient (REF) | payer OTHER | LOC: M SFHCPLAZ 16:57 | DX: R39.15 Urgency of urination (principal) ==

== ENCOUNTER 2017-05-14 09:22 | Outpatient (CLI) | payer OTHER ==
[~2017-05-14 09:22] MED LIST changes: -HumaLOG INSULIN (NovoLOG) PER UNIT As Ordered; -ONDANSETRON 4MG/2ML VIAL (J2405) As Ordered; +SODIUM CHLORIDE 0.9% INJ 10 ML SYR IV; -fentaNYL 100 MCG/2 ML INJECTION (J3010) As Ordered
[2017-05-14 10:12] LABS: MAGNESIUM LEVEL 1.9 MG/DL (1.8-2.4)
== END 2017-05-14 09:50 | disposition home or self-care (01) ==
LOC: M INFU 09:22
DX: E83.42 Hypomagnesemia (principal); Z88.1 Allergy status to other antibiotic agents; Z88.5 Allergy status to narcotic agent; Z88.8 Allergy status to other drugs, medicaments and biological substances; Z88.3 Allergy status to other anti-infective agents; Z88.0 Allergy status to penicillin; Z88.2 Allergy status to sulfonamides; Z91.048 Other nonmedicinal substance allergy status; Z91.040 Latex allergy status; Z91.02 Food additives allergy status; Z79.4 Long term (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; Z79.891 Long term (current) use of opiate analgesic; Z79.899 Other long term (current) drug therapy
CPT/HCPCS: 36591

== ENCOUNTER 2017-05-16 07:07 | Outpatient (CLI) | payer OTHER ==
[2017-05-16] MEDS: ONDANSETRON 4MG/2ML VIAL (J2405) IV (07:25)
[2017-05-16] MEDS: MAGNESIUM SULFATE 1 GM/100 ML D5W BAG (10MG/ML) (J3475) IV ×2 (07:26→09:00)
[2017-05-16] MEDS: SODIUM CHLORIDE 0.9% INJ 10 ML SYR IV (09:41)
== END 2017-05-16 10:00 | disposition home or self-care (01) ==
LOC: M INFU 07:07
DX: E83.42 Hypomagnesemia (principal); Z79.899 Other long term (current) drug therapy; Z79.891 Long term (current) use of opiate analgesic; Z88.8 Allergy status to other drugs, medicaments and biological substances
CPT/HCPCS: J2405

== ENCOUNTER 2017-05-21 10:51 | Outpatient (CLI) | payer OTHER ==
[2017-05-21] MEDS: SODIUM CHLORIDE 0.9% INJ 10 ML SYR IV (11:02)
[2017-05-21 12:17] LABS: MAGNESIUM LEVEL 1.9 MG/DL (1.8-2.4)
== END 2017-05-21 11:45 | disposition home or self-care (01) ==
LOC: M INFU 10:51
DX: E83.42 Hypomagnesemia (principal)
CPT/HCPCS: 36591

== ENCOUNTER 2017-05-23 08:07 | Outpatient (CLI) | payer OTHER ==
[2017-05-23] MEDS ORDERED: ONDANSETRON 4MG/2ML VIAL (J2405) As Ordered (08:35)
[2017-05-23] MEDS: ONDANSETRON 4MG/2ML VIAL (J2405) IV (09:06)
[2017-05-23] MEDS: MAG SULF 1GM/100ML (MAG RUN) 100 ML IV ×2 (09:10→10:15)
[2017-05-23] MEDS: SODIUM CHLORIDE 0.9% INJ 10 ML SYR IV (10:40)
== END 2017-05-23 11:00 | disposition home or self-care (01) ==
LOC: M INFU 08:07
DX: E83.42 Hypomagnesemia (principal); J45.909 Unspecified asthma, uncomplicated; E11.9 Type 2 diabetes mellitus without complications; Z79.4 Long term (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; Z79.899 Other long term (current) drug therapy; Z88.0 Allergy status to penicillin; Z88.1 Allergy status to other antibiotic agents; Z88.8 Allergy status to other drugs, medicaments and biological substances; Z91.018 Allergy to other foods; Z91.040 Latex allergy status; Z91.048 Other nonmedicinal substance allergy status
CPT/HCPCS: J2405

== ENCOUNTER → 2017-05-26 | Outpatient (REF) | payer OTHER | LOC: M SFHCPLAZ 15:40 | DX: N30.00 Acute cystitis without hematuria (principal) ==

== ENCOUNTER 2017-05-28 06:45 | Outpatient (CLI) | payer OTHER ==
[2017-05-28] MEDS: SODIUM CHLORIDE 0.9% INJ 10 ML SYR IV (07:04)
[2017-05-28 08:10] LABS: MAGNESIUM LEVEL 1.9 MG/DL (1.8-2.4)
== END 2017-05-28 07:15 | disposition home or self-care (01) ==
LOC: M INFU 06:45
DX: E83.42 Hypomagnesemia (principal)
CPT/HCPCS: 36591

== ENCOUNTER 2017-05-30 07:17 | Outpatient (CLI) | payer OTHER ==
[2017-05-30] MEDS: ONDANSETRON 4MG/2ML VIAL (J2405) IV (07:41)
[2017-05-30] MEDS: MAGNESIUM SULFATE 1 GM/100 ML D5W BAG (10MG/ML) (J3475) IV ×2 (08:00→08:50)
[2017-05-30 08:05] LABS: ESTIMATED AVERAGE GLUCOSE 197 MG/DL (60-110); HEMOGLOBIN A1c 8.5 %
[2017-05-30] MEDS: SODIUM CHLORIDE 0.9% INJ 10 ML SYR IV (09:52)
== END 2017-05-30 10:00 | disposition home or self-care (01) ==
LOC: M INFU 07:17
DX: E83.42 Hypomagnesemia (principal); J45.909 Unspecified asthma, uncomplicated; I10 Essential (primary) hypertension; E11.9 Type 2 diabetes mellitus without complications; Z79.84 Long term (current) use of oral hypoglycemic drugs; Z79.899 Other long term (current) drug therapy; Z88.0 Allergy status to penicillin; Z88.2 Allergy status to sulfonamides; Z88.5 Allergy status to narcotic agent; Z88.8 Allergy status to other drugs, medicaments and biological substances; Z91.040 Latex allergy status; Z91.018 Allergy to other foods; Z91.048 Other nonmedicinal substance allergy status
CPT/HCPCS: J2405

== ENCOUNTER 2017-06-04 06:50 | Outpatient (CLI) | payer OTHER ==
[2017-06-04] MEDS: SODIUM CHLORIDE 0.9% INJ 10 ML SYR IV (07:03)
[2017-06-04 07:54] LABS: MAGNESIUM LEVEL 1.9 MG/DL (1.8-2.4)
== END 2017-06-04 07:30 | disposition home or self-care (01) ==
LOC: M INFU 06:50
DX: E83.42 Hypomagnesemia (principal); I10 Essential (primary) hypertension; J45.909 Unspecified asthma, uncomplicated; E11.9 Type 2 diabetes mellitus without complications; Z79.84 Long term (current) use of oral hypoglycemic drugs; Z79.899 Other long term (current) drug therapy; Z88.8 Allergy status to other drugs, medicaments and biological substances; Z91.018 Allergy to other foods; Z91.048 Other nonmedicinal substance allergy status
CPT/HCPCS: 36591

== ENCOUNTER → 2017-06-05 | Outpatient (CLI) | payer OTHER | LOC: M RAD 08:03 | DX: K91.2 Postsurgical malabsorption, not elsewhere classified (principal) | CPT/HCPCS: 74018 ==

== ENCOUNTER 2017-06-06 06:46 | Outpatient (CLI) | payer OTHER ==
[2017-06-06] MEDS: SODIUM CHLORIDE 0.9% INJ 10 ML SYR IV (06:30)
[2017-06-06] MEDS: ONDANSETRON 4MG/2ML VIAL (J2405) IV (07:23)
[2017-06-06] MEDS: MAGNESIUM SULFATE 1 GM/100 ML D5W BAG (10MG/ML) (J3475) IV (07:23)
== END 2017-06-06 09:50 | disposition home or self-care (01) ==
LOC: M INFU 06:46
DX: E83.42 Hypomagnesemia (principal); I10 Essential (primary) hypertension; J45.909 Unspecified asthma, uncomplicated; E11.9 Type 2 diabetes mellitus without complications; Z79.4 Long term (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; Z79.899 Other long term (current) drug therapy
CPT/HCPCS: J2405

== ENCOUNTER 2017-06-11 07:09 | Outpatient (CLI) | payer OTHER ==
[2017-06-11] MEDS ORDERED: ONDANSETRON 4MG/2ML VIAL (J2405) IV (07:45)
[2017-06-11] MEDS: SODIUM CHLORIDE 0.9% INJ 10 ML SYR IV (07:47)
[2017-06-11 08:13] LABS: MAGNESIUM LEVEL 1.8 MG/DL (1.8-2.4)
== END 2017-06-11 07:50 | disposition home or self-care (01) ==
LOC: M INFU 07:09
DX: E83.42 Hypomagnesemia (principal); Z88.8 Allergy status to other drugs, medicaments and biological substances; Z88.1 Allergy status to other antibiotic agents; Z88.5 Allergy status to narcotic agent; Z88.0 Allergy status to penicillin; Z88.2 Allergy status to sulfonamides; Z88.3 Allergy status to other anti-infective agents; Z91.02 Food additives allergy status; Z91.040 Latex allergy status; Z91.018 Allergy to other foods; Z91.048 Other nonmedicinal substance allergy status; Z79.4 Long term (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; Z79.899 Other long term (current) drug therapy; Z79.891 Long term (current) use of opiate analgesic
CPT/HCPCS: 36591

== ENCOUNTER → 2017-06-11 | Outpatient (CLI) | payer OTHER | LOC: M PAIN 09:15 | DX: M54.81 Occipital neuralgia (principal); M79.1 Myalgia; E11.9 Type 2 diabetes mellitus without complications; J45.909 Unspecified asthma, uncomplicated; E78.5 Hyperlipidemia, unspecified; K21.9 Gastro-esophageal reflux disease without esophagitis; Z79.4 Long term (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; Z79.891 Long term (current) use of opiate analgesic; Z79.899 Other long term (current) drug therapy; Z88.8 Allergy status to other drugs, medicaments and biological substances; Z91.018 Allergy to other foods; Z91.040 Latex allergy status; Z87.442 Personal history of urinary calculi | CPT/HCPCS: G0463 ==

== ENCOUNTER 2017-06-13 09:19 | Outpatient (CLI) | payer OTHER ==
[2017-06-13] MEDS: MAG SULF 1GM/100ML (MAG RUN) 100 ML IV ×4 (09:50→13:00)
[2017-06-13] MEDS: ONDANSETRON 4MG/2ML VIAL (J2405) IV (09:50)
[2017-06-13] MEDS: SODIUM CHLORIDE 0.9% INJ 10 ML SYR IV (14:04)
== END 2017-06-13 14:15 | disposition home or self-care (01) ==
LOC: M INFU 09:19
DX: E83.42 Hypomagnesemia (principal); J45.909 Unspecified asthma, uncomplicated; E11.9 Type 2 diabetes mellitus without complications; Z79.4 Long term (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; Z79.899 Other long term (current) drug therapy; Z88.8 Allergy status to other drugs, medicaments and biological substances; Z91.018 Allergy to other foods; Z91.040 Latex allergy status
CPT/HCPCS: J2405

== ENCOUNTER → 2017-06-17 | Outpatient (CLI) | payer OTHER ==
[~2017-06-17] MED LIST changes: +BUPIVACAINE HCL 0.25% 10 ML VIAL As Ordered; +BUPIVACAINE HCL 0.25% 30 ML VIAL As Ordered; -SODIUM CHLORIDE 0.9% INJ 10 ML SYR IV; +TRIAMCINOLONE ACETONIDE SUSP 40 MG/ML VIAL (J3301) As Ordered
== END ==
LOC: M PAIN 10:00
DX: G89.29 Other chronic pain (principal); M79.1 Myalgia; E11.42 Type 2 diabetes mellitus with diabetic polyneuropathy; J45.909 Unspecified asthma, uncomplicated; E78.5 Hyperlipidemia, unspecified; K21.9 Gastro-esophageal reflux disease without esophagitis; R51 Headache; Z86.718 Personal history of other venous thrombosis and embolism; Z79.4 Long term (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; Z79.899 Other long term (current) drug therapy; Z88.0 Allergy status to penicillin; Z88.2 Allergy status to sulfonamides; Z88.6 Allergy status to analgesic agent; Z88.5 Allergy status to narcotic agent; Z88.8 Allergy status to other drugs, medicaments and biological substances; Z91.040 Latex allergy status
CPT/HCPCS: J3301

== ENCOUNTER 2017-06-18 06:42 | Outpatient (CLI) | payer OTHER ==
[2017-06-18] MEDS: SODIUM CHLORIDE 0.9% INJ 10 ML SYR IV (07:12)
[2017-06-18 07:32] LABS: MAGNESIUM LEVEL 1.7 MG/DL (1.8-2.4)
== END 2017-06-18 07:20 | disposition home or self-care (01) ==
LOC: M INFU 06:42
DX: E83.42 Hypomagnesemia (principal); I10 Essential (primary) hypertension; E78.00 Pure hypercholesterolemia, unspecified; J45.909 Unspecified asthma, uncomplicated; E11.9 Type 2 diabetes mellitus without complications; Z79.4 Long term (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; Z79.899 Other long term (current) drug therapy; Z88.8 Allergy status to other drugs, medicaments and biological substances; Z91.018 Allergy to other foods; Z91.040 Latex allergy status; Z91.048 Other nonmedicinal substance allergy status
CPT/HCPCS: 36591

== ENCOUNTER 2017-06-20 06:24 | Outpatient (CLI) | payer OTHER ==
[2017-06-20] MEDS: ONDANSETRON 4MG/2ML VIAL (J2405) IV (07:18)
[2017-06-20] MEDS: MAGNESIUM SULFATE 1 GM/100 ML D5W BAG (10MG/ML) (J3475) IV ×4 (07:21→10:45)
[2017-06-20] MEDS: SODIUM CHLORIDE 0.9% INJ 10 ML SYR IV (11:07)
== END 2017-06-20 12:00 | disposition home or self-care (01) ==
LOC: M INFU 06:24
DX: E83.42 Hypomagnesemia (principal); J45.909 Unspecified asthma, uncomplicated; E11.9 Type 2 diabetes mellitus without complications; Z79.4 Long term (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; Z79.899 Other long term (current) drug therapy; Z79.891 Long term (current) use of opiate analgesic; Z88.8 Allergy status to other drugs, medicaments and biological substances; Z91.018 Allergy to other foods; Z91.048 Other nonmedicinal substance allergy status; Z91.040 Latex allergy status
CPT/HCPCS: J2405

== ENCOUNTER 2017-06-25 08:10 | Outpatient (CLI) | payer OTHER ==
[2017-06-25] MEDS: SODIUM CHLORIDE 0.9% INJ 10 ML SYR IV (08:33)
[2017-06-25 09:36] LABS: MAGNESIUM LEVEL 1.8 MG/DL (1.8-2.4)
== END 2017-06-25 08:50 | disposition home or self-care (01) ==
LOC: M INFU 08:10
DX: E83.42 Hypomagnesemia (principal); Z79.891 Long term (current) use of opiate analgesic; Z79.899 Other long term (current) drug therapy; Z88.8 Allergy status to other drugs, medicaments and biological substances; Z91.048 Other nonmedicinal substance allergy status; Z91.018 Allergy to other foods
CPT/HCPCS: 36591

== ENCOUNTER 2017-06-27 12:15 | Outpatient (CLI) | payer OTHER ==
[2017-06-27] MEDS ORDERED: ONDANSETRON 4MG/2ML VIAL (J2405) IV ×2 (13:00)
[2017-06-27] MEDS: MAGNESIUM SULFATE 1 GM/100 ML D5W BAG (10MG/ML) (J3475) IV ×4 (13:09→16:15)
[2017-06-27] MEDS: SODIUM CHLORIDE 0.9% INJ 10 ML SYR IV (17:07)
== END 2017-06-27 17:20 | disposition home or self-care (01) ==
LOC: M INFU 12:15
DX: E83.42 Hypomagnesemia (principal); Z79.899 Other long term (current) drug therapy; Z79.4 Long term (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; Z79.891 Long term (current) use of opiate analgesic; Z88.8 Allergy status to other drugs, medicaments and biological substances; Z91.041 Radiographic dye allergy status; Z91.018 Allergy to other foods
CPT/HCPCS: J3475

== ENCOUNTER 2017-07-02 06:47 | Outpatient (CLI) | payer OTHER ==
[2017-07-02] MEDS: SODIUM CHLORIDE 0.9% INJ 10 ML SYR IV (07:14)
[2017-07-02 07:50] LABS: MAGNESIUM LEVEL 1.8 MG/DL (1.8-2.4)
== END 2017-07-02 07:30 | disposition home or self-care (01) ==
LOC: M INFU 06:47
DX: E83.42 Hypomagnesemia (principal); Z79.4 Long term (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; Z79.899 Other long term (current) drug therapy; Z79.891 Long term (current) use of opiate analgesic; Z88.8 Allergy status to other drugs, medicaments and biological substances; Z88.1 Allergy status to other antibiotic agents; Z88.5 Allergy status to narcotic agent; Z88.0 Allergy status to penicillin; Z88.2 Allergy status to sulfonamides; Z88.3 Allergy status to other anti-infective agents; Z91.048 Other nonmedicinal substance allergy status; Z91.018 Allergy to other foods; Z91.040 Latex allergy status; Z91.02 Food additives allergy status
CPT/HCPCS: 36591

== ENCOUNTER → 2017-07-02 | Outpatient (CLI) | payer OTHER | LOC: M PAIN 08:45 | DX: M54.81 Occipital neuralgia (principal); M79.1 Myalgia; Z79.891 Long term (current) use of opiate analgesic; E11.9 Type 2 diabetes mellitus without complications; J45.909 Unspecified asthma, uncomplicated; E78.5 Hyperlipidemia, unspecified; K21.9 Gastro-esophageal reflux disease without esophagitis; Z79.4 Long term (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; Z79.899 Other long term (current) drug therapy; Z88.8 Allergy status to other drugs, medicaments and biological substances; Z91.048 Other nonmedicinal substance allergy status; Z91.040 Latex allergy status | CPT/HCPCS: G0463 ==

== ENCOUNTER 2017-07-04 12:16 | Outpatient (CLI) | payer OTHER ==
[2017-07-04] MEDS: ONDANSETRON 4MG/2ML VIAL (J2405) IV (12:32)
[2017-07-04] MEDS: MAGNESIUM SULFATE 1 GM/100 ML D5W BAG (10MG/ML) (J3475) IV (12:33)
[2017-07-04] MEDS: SODIUM CHLORIDE 0.9% INJ 10 ML SYR IV (17:04)
== END 2017-07-04 17:05 | disposition home or self-care (01) ==
LOC: M INFU 12:16
DX: E83.42 Hypomagnesemia (principal); Z88.5 Allergy status to narcotic agent; Z88.1 Allergy status to other antibiotic agents; Z88.8 Allergy status to other drugs, medicaments and biological substances; Z88.0 Allergy status to penicillin; Z88.3 Allergy status to other anti-infective agents; Z88.2 Allergy status to sulfonamides; Z91.048 Other nonmedicinal substance allergy status; Z91.018 Allergy to other foods; Z91.040 Latex allergy status; Z91.02 Food additives allergy status; Z79.899 Other long term (current) drug therapy; Z79.891 Long term (current) use of opiate analgesic; Z79.4 Long term (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
CPT/HCPCS: J2405

== ENCOUNTER 2017-07-09 07:06 | Outpatient (CLI) | payer OTHER ==
[2017-07-09] MEDS: SODIUM CHLORIDE 0.9% INJ 10 ML SYR IV (07:18)
[2017-07-09 08:09] LABS: MAGNESIUM LEVEL 1.8 MG/DL (1.8-2.4)
== END 2017-07-09 07:45 | disposition home or self-care (01) ==
LOC: M INFU 07:06
DX: E83.42 Hypomagnesemia (principal); J45.909 Unspecified asthma, uncomplicated; E11.9 Type 2 diabetes mellitus without complications; Z79.4 Long term (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; Z79.891 Long term (current) use of opiate analgesic; Z79.899 Other long term (current) drug therapy; Z88.0 Allergy status to penicillin; Z88.1 Allergy status to other antibiotic agents; Z88.5 Allergy status to narcotic agent; Z88.4 Allergy status to anesthetic agent; Z88.8 Allergy status to other drugs, medicaments and biological substances; Z91.018 Allergy to other foods; Z91.040 Latex allergy status
CPT/HCPCS: 36591

== ENCOUNTER 2017-07-11 12:03 | Outpatient (CLI) | payer OTHER ==
[2017-07-11] MEDS: ONDANSETRON 4MG/2ML VIAL (J2405) IV (12:46)
[2017-07-11] MEDS: MAG SULF 1GM/100ML (MAG RUN) 100 ML IV ×4 (13:14→16:00)
[2017-07-11] MEDS: SODIUM CHLORIDE 0.9% INJ 10 ML SYR IV (17:10)
== END 2017-07-11 17:15 | disposition home or self-care (01) ==
LOC: M INFU 12:03
DX: E83.42 Hypomagnesemia (principal); I10 Essential (primary) hypertension; J45.909 Unspecified asthma, uncomplicated; E11.9 Type 2 diabetes mellitus without complications; Z79.84 Long term (current) use of oral hypoglycemic drugs; Z79.899 Other long term (current) drug therapy; Z79.891 Long term (current) use of opiate analgesic; Z88.0 Allergy status to penicillin; Z88.8 Allergy status to other drugs, medicaments and biological substances; Z91.018 Allergy to other foods; Z91.040 Latex allergy status; Z91.048 Other nonmedicinal substance allergy status
CPT/HCPCS: J2405

== ENCOUNTER 2017-07-15 16:51 | Emergency (ER) | payer OTHER | END 2017-07-15 18:58 | disposition left against medical advice (07) | LOC: M ED 16:51 | DX: Z53.29 Procedure and treatment not carried out because of patient's decision for other reasons (principal) ==

== ENCOUNTER 2017-07-25 07:23 | Outpatient (CLI) | payer OTHER ==
[2017-07-25] MEDS: ONDANSETRON 4MG/2ML VIAL (J2405) IV (07:50)
[2017-07-25] MEDS: MAGNESIUM SULFATE 1 GM/100 ML D5W BAG (10MG/ML) (J3475) IV ×4 (07:51→11:30)
[2017-07-25] MEDS: SODIUM CHLORIDE 0.9% INJ 10 ML SYR IV (12:02)
== END 2017-07-25 12:25 | disposition home or self-care (01) ==
LOC: M INFU 07:23
DX: E83.42 Hypomagnesemia (principal); E11.9 Type 2 diabetes mellitus without complications; Z79.4 Long term (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; Z79.891 Long term (current) use of opiate analgesic; Z79.899 Other long term (current) drug therapy; Z91.040 Latex allergy status; Z91.018 Allergy to other foods; Z91.048 Other nonmedicinal substance allergy status
CPT/HCPCS: J2405

== ENCOUNTER 2017-07-30 06:36 | Outpatient (CLI) | payer OTHER ==
[2017-07-30] MEDS: SODIUM CHLORIDE 0.9% INJ 10 ML SYR IV (06:58)
[2017-07-30 07:29] LABS: MAGNESIUM LEVEL 1.8 MG/DL (1.8-2.4)
== END 2017-07-30 07:00 | disposition home or self-care (01) ==
LOC: M INFU 06:36
DX: E83.42 Hypomagnesemia (principal); I10 Essential (primary) hypertension; J45.909 Unspecified asthma, uncomplicated; E11.9 Type 2 diabetes mellitus without complications; Z79.4 Long term (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; Z79.891 Long term (current) use of opiate analgesic; Z79.899 Other long term (current) drug therapy; Z88.0 Allergy status to penicillin; Z88.1 Allergy status to other antibiotic agents; Z88.5 Allergy status to narcotic agent; Z88.8 Allergy status to other drugs, medicaments and biological substances; Z91.018 Allergy to other foods; Z91.040 Latex allergy status; Z91.048 Other nonmedicinal substance allergy status
CPT/HCPCS: 36591

== ENCOUNTER 2017-08-01 06:26 | Outpatient (CLI) | payer OTHER ==
[2017-08-01] MEDS ORDERED: ONDANSETRON 4MG/2ML VIAL (J2405) As Ordered (06:44)
[2017-08-01] MEDS: ONDANSETRON 4MG/2ML VIAL (J2405) IV (06:52)
[2017-08-01] MEDS: MAGNESIUM SULFATE 1 GM/100 ML D5W BAG (10MG/ML) (J3475) IV (06:54)
[2017-08-01] MEDS: SODIUM CHLORIDE 0.9% INJ 10 ML SYR IV (10:46)
== END 2017-08-01 11:20 | disposition home or self-care (01) ==
LOC: M INFU 06:26
DX: E83.42 Hypomagnesemia (principal); I10 Essential (primary) hypertension; J45.909 Unspecified asthma, uncomplicated; E11.9 Type 2 diabetes mellitus without complications; Z79.4 Long term (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; Z79.891 Long term (current) use of opiate analgesic; Z79.899 Other long term (current) drug therapy; Z88.0 Allergy status to penicillin; Z88.5 Allergy status to narcotic agent; Z88.8 Allergy status to other drugs, medicaments and biological substances; Z91.040 Latex allergy status; Z91.048 Other nonmedicinal substance allergy status; Z91.018 Allergy to other foods
CPT/HCPCS: J2405

== ENCOUNTER → 2017-08-06 | Outpatient (CLI) | payer OTHER ==
[2017-08-06] MEDS: SODIUM CHLORIDE 0.9% INJ 10 ML SYR IV (07:21)
[2017-08-06 07:41] LABS: MAGNESIUM LEVEL 1.6 MG/DL (1.8-2.4)
== END ==
LOC: M INFU 06:53
DX: E83.42 Hypomagnesemia (principal); I10 Essential (primary) hypertension; J45.909 Unspecified asthma, uncomplicated; E11.9 Type 2 diabetes mellitus without complications; Z79.4 Long term (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; Z79.891 Long term (current) use of opiate analgesic; Z79.899 Other long term (current) drug therapy; Z88.0 Allergy status to penicillin; Z88.8 Allergy status to other drugs, medicaments and biological substances; Z88.5 Allergy status to narcotic agent; Z91.040 Latex allergy status; Z91.018 Allergy to other foods; Z91.048 Other nonmedicinal substance allergy status
CPT/HCPCS: 36591

== ENCOUNTER 2017-08-13 06:40 | Outpatient (CLI) | payer OTHER ==
[2017-08-13] MEDS: SODIUM CHLORIDE 0.9% INJ 10 ML SYR IV (06:58)
== END 2017-08-13 07:00 | disposition home or self-care (01) ==
LOC: M INFU 06:40
DX: E83.42 Hypomagnesemia (principal); I10 Essential (primary) hypertension; J45.909 Unspecified asthma, uncomplicated; E11.9 Type 2 diabetes mellitus without complications; Z79.4 Long term (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; Z79.891 Long term (current) use of opiate analgesic; Z79.899 Other long term (current) drug therapy; Z88.0 Allergy status to penicillin; Z88.5 Allergy status to narcotic agent; Z88.8 Allergy status to other drugs, medicaments and biological substances; Z91.040 Latex allergy status; Z91.018 Allergy to other foods; Z91.048 Other nonmedicinal substance allergy status
CPT/HCPCS: 36591

== ENCOUNTER 2017-08-18 06:38 | Outpatient (CLI) | payer OTHER ==
[~2017-08-18 06:38] MED LIST changes: -BUPIVACAINE HCL 0.25% 10 ML VIAL As Ordered; -BUPIVACAINE HCL 0.25% 30 ML VIAL As Ordered; +SODIUM CHLORIDE 0.9% INJ 10 ML SYR IV; -TRIAMCINOLONE ACETONIDE SUSP 40 MG/ML VIAL (J3301) As Ordered
[2017-08-18 07:26] LABS: MAGNESIUM LEVEL 1.8 MG/DL (1.8-2.4)
== END 2017-08-18 07:00 | disposition home or self-care (01) ==
LOC: M INFU 06:38
DX: E83.42 Hypomagnesemia (principal); Z88.8 Allergy status to other drugs, medicaments and biological substances; Z88.1 Allergy status to other antibiotic agents; Z88.5 Allergy status to narcotic agent; Z88.0 Allergy status to penicillin; Z88.2 Allergy status to sulfonamides; Z88.3 Allergy status to other anti-infective agents; Z91.02 Food additives allergy status; Z91.018 Allergy to other foods; Z91.040 Latex allergy status; Z91.048 Other nonmedicinal substance allergy status; Z79.4 Long term (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; Z79.899 Other long term (current) drug therapy; Z79.891 Long term (current) use of opiate analgesic
CPT/HCPCS: 36591

== ENCOUNTER 2017-08-19 08:45 | Day surgery (SDC) | payer OTHER ==
[~2017-08-19 08:45] MED LIST changes: +LIDOCAINE 2% INJ 100 MG/5 ML SDV (FOR ANES.) As Ordered; +PROPOFOL 200 MG/20 ML VIAL As Ordered; -SODIUM CHLORIDE 0.9% INJ 10 ML SYR IV
[2017-08-19] MEDS ORDERED: LR 1,000 ML IV (09:00)
[2017-08-19 09:43] LABS: BEDSIDE GLUCOSE 94 MG/DL (70-105)
[2017-08-19] MEDS ORDERED: MIDAZOLAM INJ 2 MG/2 ML VIAL (J2250) As Ordered ×3 (09:52→11:26)
[2017-08-19] MEDS ORDERED: fentaNYL 100 MCG/2 ML INJECTION (J3010) As Ordered (09:52)
[2017-08-19] MEDS: LIDOCAINE 1% SDV INJ 30 ML VIAL As Ordered (12:00)
[2017-08-19] MEDS: BUPIVACAINE HCL 0.5% 30 ML VIAL As Ordered (12:00)
[2017-08-19] MEDS: HEPARIN SOD (PORCINE) 5000 UNITS/ML VIAL As Ordered (12:02)
== END 2017-08-19 13:15 | disposition home or self-care (01) ==
LOC: M SDC 08:45
DX: Z45.2 Encounter for adjustment and management of vascular access device (principal); T82.598A Other mechanical complication of other cardiac and vascular devices and implants, initial encounter; E11.21 Type 2 diabetes mellitus with diabetic nephropathy; J45.909 Unspecified asthma, uncomplicated; E78.4 Other hyperlipidemia; G89.4 Chronic pain syndrome; K21.9 Gastro-esophageal reflux disease without esophagitis; E83.42 Hypomagnesemia; R11.0 Nausea; K43.9 Ventral hernia without obstruction or gangrene; Z88.2 Allergy status to sulfonamides; Z88.8 Allergy status to other drugs, medicaments and biological substances; Z79.899 Other long term (current) drug therapy; Z79.51 Long term (current) use of inhaled steroids
CPT/HCPCS: 36582

== ENCOUNTER → 2017-08-20 | Outpatient (CLI) | payer OTHER ==
[~2017-08-20] MED LIST changes: -LIDOCAINE 2% INJ 100 MG/5 ML SDV (FOR ANES.) As Ordered; -PROPOFOL 200 MG/20 ML VIAL As Ordered; +SODIUM CHLORIDE 0.9% INJ 10 ML SYR IV
[2017-08-20 08:32] LABS: MAGNESIUM LEVEL 1.8 MG/DL (1.8-2.4)
== END ==
LOC: M INFU 07:29
DX: E83.42 Hypomagnesemia (principal)
CPT/HCPCS: 83735

== ENCOUNTER 2017-08-29 12:02 | Emergency (ER) | payer OTHER ==
[2017-08-29 13:00] LABS: BASO % 0.6 % (0.0-1.0); EOS # 0.1 10^3/uL (0.0-0.50); EOS % 1.6 % (0.0-3.0); HEMATOCRIT 36.9 % (36.0-47.0); HEMOGLOBIN 11.8 g/dl (12.0-15.5); IMMATURE GRANULOCYTE % 0.5 % (0-3.0); LYMPH # 1.9 10^3/uL (1.5-4.5); LYMPH % 30.3 % (24.0-44.0); MEAN CORPUSCULAR HEMOGLOBIN 30.3 pg (27.0-33.0); MEAN CORPUSCULAR VOLUME 94.6 fl (80.0-96.0); MONO # 0.7 10^3/uL (0.0-0.8); MONO % 10.5 % (0.0-5.0); NEUTROPHILS # 3.6 10^3/uL (1.8-7.7); NEUTROPHILS % 56.5 % (36.0-66.0); PLATELET COUNT, AUTOMATED 326 10^3/uL (150-450); RED CELL DISTRIBUTION WIDTH 14.9 % (11.5-14.5); WHITE BLOOD COUNT 6.4 10^3/uL (4.0-10.0)
[2017-08-29] MEDS: NS 500 ML IV (13:00)
[2017-08-29] MEDS: HYDROmorphone HCL 1 MG/ML SYRINGE (J1170) IV ×3 (13:00→17:09)
[2017-08-29] MEDS: ONDANSETRON 4MG/2ML VIAL (J2405) IV (13:00)
[2017-08-29] MEDS ORDERED: GASTROGRAFIN SOLUTION 30ML PO (13:15)
[2017-08-29] MEDS: GASTROGRAFIN SOLUTION 30ML (Q9963) PO ×2 (13:15→13:45)
[2017-08-29 13:25] LABS: LACTIC ACID SEPSIS PROTOCOL 1.4 MMOL/L (0.4-2.0)
[2017-08-29 13:29] LABS: ALBUMIN 3.4 GM/DL (3.2-5.2); ALBUMIN/GLOBULIN RATIO 0.68 (1.00-1.93); ALKALINE PHOSPHATASE 126 U/L (45-117); ALT/SGPT 30 U/L (12-78); ANION GAP 4 MEQ/L (8-16); AST/SGOT 23 U/L (7-37); BILIRUBIN,DIRECT < 0.1 MG/DL (0.0-0.2); BILIRUBIN,TOTAL 0.2 MG/DL (0.2-1.0); BLOOD UREA NITROGEN 10 MG/DL (7-18); CALCIUM LEVEL 10.9 MG/DL (8.5-10.1); CARBON DIOXIDE LEVEL 28 MEQ/L (21-32); CHLORIDE LEVEL 106 MEQ/L (98-107); CK-MB VALUE MASS 2.1 NG/ML (<3.6); CPK CREATINE PHOSPHOKINASE 124 U/L (26-192); CREATININE FOR GFR 0.65 MG/DL (0.55-1.30); GLOMERULAR FILTRATION RATE > 60.0 (>51); GLUCOSE, FASTING 67 MG/DL (70-100); LIPASE 95 U/L (73-393); MB/CK RELATIVE INDEX 1.69 (< OR =4); SODIUM LEVEL 138 MEQ/L (136-145); TOTAL PROTEIN 8.4 GM/DL (6.4-8.2); TROPONIN I < 0.02 NG/ML (< 0.10)
[2017-08-29] MEDS ORDERED: MAGNESIUM SULFATE 1 GM/100 ML D5W BAG (10MG/ML) (J3475) As Ordered (16:06)
[2017-08-29] MEDS: MAG SULF 1GM/100ML (MAG RUN) 1 GM in APPROPRIATE DILUENT 1 EA IV (16:20)
[2017-08-29] MEDS ORDERED: MAG SULF 1GM/100ML (MAG RUN) 1 GM in APPROPRIATE DILUENT 1 EA IV (16:30)
== END 2017-08-29 17:39 | disposition home or self-care (01) ==
LOC: M ED 12:02
DX: R10.9 Unspecified abdominal pain (principal); E11.9 Type 2 diabetes mellitus without complications; J45.909 Unspecified asthma, uncomplicated; Z86.718 Personal history of other venous thrombosis and embolism; Z88.8 Allergy status to other drugs, medicaments and biological substances; Z88.6 Allergy status to analgesic agent; Z88.1 Allergy status to other antibiotic agents; Z88.5 Allergy status to narcotic agent; Z79.4 Long term (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; Z79.899 Other long term (current) drug therapy
CPT/HCPCS: J1170

== ENCOUNTER 2017-09-02 07:39 | Outpatient (CLI) | payer OTHER ==
[2017-09-02] MEDS: SODIUM CHLORIDE 0.9% INJ 10 ML SYR IV (07:50)
[2017-09-02 09:14] LABS: MAGNESIUM LEVEL 1.8 MG/DL (1.8-2.4)
== END 2017-09-02 09:30 | disposition home or self-care (01) ==
LOC: M INFU 07:39
DX: E83.42 Hypomagnesemia (principal); D64.9 Anemia, unspecified; I10 Essential (primary) hypertension; J45.909 Unspecified asthma, uncomplicated; E11.9 Type 2 diabetes mellitus without complications; Z79.4 Long term (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; Z79.891 Long term (current) use of opiate analgesic; Z79.899 Other long term (current) drug therapy; Z88.0 Allergy status to penicillin; Z88.8 Allergy status to other drugs, medicaments and biological substances; Z91.040 Latex allergy status; Z91.018 Allergy to other foods; Z91.048 Other nonmedicinal substance allergy status
CPT/HCPCS: 36591

== ENCOUNTER 2017-09-02 13:59 | Emergency (ER) | payer OTHER ==
[2017-09-02] MEDS ORDERED: SODIUM CHLORIDE 0.9% INJ 10 ML SYR IV (15:30)
[2017-09-02] MEDS: ONDANSETRON 4MG/2ML VIAL (J2405) IV ×2 (16:17→19:00)
[2017-09-02] MEDS: NS 1,000 ML IV (16:17)
[2017-09-02] MEDS: HYDROmorphone HCL 1 MG/ML SYRINGE (J1170) IV ×2 (16:17→18:12)
[2017-09-02 16:18] LABS: BASO % 0.7 % (0.0-1.0); EOS # 0.1 10^3/uL (0.0-0.50); EOS % 2.4 % (0.0-3.0); HEMATOCRIT 34.3 % (36.0-47.0); HEMOGLOBIN 10.8 g/dl (12.0-15.5); IMMATURE GRANULOCYTE % 0.4 % (0-3.0); LYMPH # 1.6 10^3/uL (1.5-4.5); LYMPH % 29.7 % (24.0-44.0); MEAN CORPUSCULAR HEMOGLOBIN 30.3 pg (27.0-33.0); MEAN CORPUSCULAR HGB CONC 31.5 g/dl (32.0-36.5); MEAN CORPUSCULAR VOLUME 96.1 fl (80.0-96.0); MONO # 0.6 10^3/uL (0.0-0.8); MONO % 10.6 % (0.0-5.0); NEUTROPHILS % 56.2 % (36.0-66.0); PLATELET COUNT, AUTOMATED 274 10^3/uL (150-450); RED BLOOD COUNT 3.57 10^6/uL (4.00-5.40); RED CELL DISTRIBUTION WIDTH 14.8 % (11.5-14.5); WHITE BLOOD COUNT 5.4 10^3/uL (4.0-10.0)
[2017-09-02 16:22] LABS: KETONE, URINE AUTO RFX NEGATIVE (NEGATIVE); LEUKOCYTE ESTERASE UR AUTO RFX NEGATIVE (NEGATIVE); NITRITE, URINE AUTO RFX NEGATIVE (NEGATIVE); RBC, URINE AUTO RFX 1 /HPF (0-3); SQUAM EPITHELIAL CELL UR AURFX 0 /HPF (0-6); WBC, URINE AUTO RFX 2 /HPF (0-3)
[2017-09-02 16:40] LABS: ALBUMIN 3.2 GM/DL (3.2-5.2); ALBUMIN/GLOBULIN RATIO 0.76 (1.00-1.93); ALKALINE PHOSPHATASE 115 U/L (45-117); ALT/SGPT 26 U/L (12-78); AMYLASE 23 U/L (25-115); ANION GAP 1 MEQ/L (8-16); AST/SGOT 18 U/L (7-37); BILIRUBIN,DIRECT < 0.1 MG/DL (0.0-0.2); BILIRUBIN,TOTAL 0.2 MG/DL (0.2-1.0); BLOOD UREA NITROGEN 12 MG/DL (7-18); C REACTIVE PROTEIN QUANTITATIV 0.42 MG/DL (0.00-0.30); CALCIUM LEVEL 10.1 MG/DL (8.5-10.1); CARBON DIOXIDE LEVEL 31 MEQ/L (21-32); CHLORIDE LEVEL 110 MEQ/L (98-107); CREATININE FOR GFR 0.57 MG/DL (0.55-1.30); GLOMERULAR FILTRATION RATE > 60.0 (>51); GLUCOSE, FASTING 100 MG/DL (70-100); LIPASE 87 U/L (73-393); POTASSIUM SERUM 3.9 MEQ/L (3.5-5.1); SODIUM LEVEL 142 MEQ/L (136-145); TOTAL PROTEIN 7.4 GM/DL (6.4-8.2)
[2017-09-02] MEDS: MAGNESIUM CITRATE 300 ML BTL PO (18:48)
== END 2017-09-02 20:00 | disposition home or self-care (01) ==
LOC: M ED 13:59
DX: R10.84 Generalized abdominal pain (principal); R11.2 Nausea with vomiting, unspecified; Z93.2 Ileostomy status; E11.9 Type 2 diabetes mellitus without complications; J45.909 Unspecified asthma, uncomplicated; Z86.718 Personal history of other venous thrombosis and embolism; R51 Headache; E78.00 Pure hypercholesterolemia, unspecified; K31.84 Gastroparesis; Z87.440 Personal history of urinary (tract) infections; M54.9 Dorsalgia, unspecified; Z96.9 Presence of functional implant, unspecified; Z79.899 Other long term (current) drug therapy; Z79.51 Long term (current) use of inhaled steroids; Z79.4 Long term (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; Z91.018 Allergy to other foods; Z88.8 Allergy status to other drugs, medicaments and biological substances; Z88.6 Allergy status to analgesic agent; Z88.5 Allergy status to narcotic agent; Z88.4 Allergy status to anesthetic agent; Z91.040 Latex allergy status; Z88.0 Allergy status to penicillin; Z88.2 Allergy status to sulfonamides; Z91.048 Other nonmedicinal substance allergy status
CPT/HCPCS: J1170

== ENCOUNTER 2017-09-05 10:03 | Outpatient (CLI) | payer OTHER ==
[2017-09-05] MEDS: ONDANSETRON 4MG/2ML VIAL (J2405) IV (10:51)
[2017-09-05] MEDS: MAG SULF 1GM/100ML (MAG RUN) IV (10:53)
[2017-09-05] MEDS: SODIUM CHLORIDE 0.9% INJ 10 ML SYR IV (14:21)
== END 2017-09-05 15:35 | disposition home or self-care (01) ==
LOC: M INFU 10:03
DX: E83.42 Hypomagnesemia (principal); Z88.5 Allergy status to narcotic agent; Z88.1 Allergy status to other antibiotic agents; Z88.8 Allergy status to other drugs, medicaments and biological substances; Z88.0 Allergy status to penicillin; Z88.3 Allergy status to other anti-infective agents; Z88.2 Allergy status to sulfonamides; Z91.02 Food additives allergy status; Z91.040 Latex allergy status; Z91.048 Other nonmedicinal substance allergy status; Z91.018 Allergy to other foods; Z79.899 Other long term (current) drug therapy; Z79.891 Long term (current) use of opiate analgesic; Z79.4 Long term (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
CPT/HCPCS: J2405

== ENCOUNTER → 2017-09-05 | Outpatient (CLI) | payer OTHER | LOC: M PAIN 10:15 | DX: M54.81 Occipital neuralgia (principal); M79.1 Myalgia; E11.9 Type 2 diabetes mellitus without complications; J45.909 Unspecified asthma, uncomplicated; E78.5 Hyperlipidemia, unspecified; Z79.4 Long term (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; Z79.82 Long term (current) use of aspirin; Z79.891 Long term (current) use of opiate analgesic; Z79.899 Other long term (current) drug therapy; Z88.0 Allergy status to penicillin; Z88.1 Allergy status to other antibiotic agents; Z88.2 Allergy status to sulfonamides; Z88.5 Allergy status to narcotic agent; Z88.6 Allergy status to analgesic agent; Z88.8 Allergy status to other drugs, medicaments and biological substances; Z91.02 Food additives allergy status; Z91.040 Latex allergy status; Z86.718 Personal history of other venous thrombosis and embolism | CPT/HCPCS: G0463 ==

== ENCOUNTER 2017-09-10 07:38 | Outpatient (CLI) | payer OTHER ==
[2017-09-10] MEDS: SODIUM CHLORIDE 0.9% INJ 10 ML SYR IV (08:12)
[2017-09-10 08:44] LABS: MAGNESIUM LEVEL 1.9 MG/DL (1.8-2.4)
== END 2017-09-10 08:15 | disposition home or self-care (01) ==
LOC: M INFU 07:38
DX: E83.42 Hypomagnesemia (principal); I10 Essential (primary) hypertension; J45.909 Unspecified asthma, uncomplicated; E11.9 Type 2 diabetes mellitus without complications; Z79.4 Long term (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; Z79.891 Long term (current) use of opiate analgesic; Z79.899 Other long term (current) drug therapy; Z88.5 Allergy status to narcotic agent; Z91.040 Latex allergy status; Z91.018 Allergy to other foods; Z91.048 Other nonmedicinal substance allergy status; Z88.0 Allergy status to penicillin; Z88.8 Allergy status to other drugs, medicaments and biological substances
CPT/HCPCS: 36591

== ENCOUNTER 2017-09-12 06:55 | Outpatient (CLI) | payer OTHER ==
[2017-09-12] MEDS: ONDANSETRON 4MG/2ML VIAL (J2405) IV (07:23)
[2017-09-12] MEDS: MAGNESIUM SULFATE 1 GM/100 ML D5W BAG (10MG/ML) (J3475) IV ×2 (07:24→08:45)
[2017-09-12] MEDS: SODIUM CHLORIDE 0.9% INJ 10 ML SYR IV (09:44)
== END 2017-09-12 09:50 | disposition home or self-care (01) ==
LOC: M INFU 06:55
DX: E83.42 Hypomagnesemia (principal); I10 Essential (primary) hypertension; J45.909 Unspecified asthma, uncomplicated; E11.9 Type 2 diabetes mellitus without complications; Z79.4 Long term (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; Z79.891 Long term (current) use of opiate analgesic; Z79.899 Other long term (current) drug therapy; Z88.0 Allergy status to penicillin; Z88.5 Allergy status to narcotic agent; Z88.8 Allergy status to other drugs, medicaments and biological substances; Z91.018 Allergy to other foods; Z91.040 Latex allergy status; Z91.048 Other nonmedicinal substance allergy status
CPT/HCPCS: J2405

== ENCOUNTER 2017-09-12 10:10 | Emergency (ER) | payer OTHER ==
[2017-09-12] MEDS: HYDROmorphone HCL 1 MG/ML SYRINGE (J1170) IV ×2 (11:57→13:30)
[2017-09-12 11:59] LABS: KETONE, URINE AUTO RFX NEGATIVE (NEGATIVE); NITRITE, URINE AUTO RFX NEGATIVE (NEGATIVE); RBC, URINE AUTO RFX 3 /HPF (0-3); SPECIFIC GRAVITY UR AUTO RFX 1.005 (1.002-1.035); SQUAM EPITHELIAL CELL UR AURFX 0 /HPF (0-6); WBC, URINE AUTO RFX 2 /HPF (0-3)
[2017-09-12] MEDS: NS 1,000 ML IV (11:59)
[2017-09-12 12:00] LABS: LEUKOCYTE ESTERASE UR AUTO RFX TRACE (NEGATIVE)
[2017-09-12 12:53] LABS: BASO % 0.4 % (0.0-1.0); EOS # 0.1 10^3/uL (0.0-0.50); EOS % 1.4 % (0.0-3.0); HEMATOCRIT 38.9 % (36.0-47.0); HEMOGLOBIN 12.1 g/dl (12.0-15.5); IMMATURE GRANULOCYTE % 0.3 % (0-3.0); LYMPH # 1.9 10^3/uL (1.5-4.5); LYMPH % 26.6 % (24.0-44.0); MEAN CORPUSCULAR HEMOGLOBIN 30.5 pg (27.0-33.0); MEAN CORPUSCULAR HGB CONC 31.1 g/dl (32.0-36.5); MONO # 0.7 10^3/uL (0.0-0.8); MONO % 9.9 % (0.0-5.0); NEUTROPHILS # 4.3 10^3/uL (1.8-7.7); NEUTROPHILS % 61.4 % (36.0-66.0); PLATELET COUNT, AUTOMATED 236 10^3/uL (150-450); RED BLOOD COUNT 3.97 10^6/uL (4.00-5.40); RED CELL DISTRIBUTION WIDTH 15.2 % (11.5-14.5)
[2017-09-12 14:18] LABS: LACTIC ACID SEPSIS PROTOCOL 1.4 MMOL/L (0.4-2.0)
[2017-09-12 14:22] LABS: ALBUMIN 3.6 GM/DL (3.2-5.2); ALBUMIN/GLOBULIN RATIO 0.77 (1.00-1.93); ALKALINE PHOSPHATASE 140 U/L (45-117); ALT/SGPT 27 U/L (12-78); ANION GAP 6 MEQ/L (8-16); AST/SGOT 19 U/L (7-37); BILIRUBIN,DIRECT < 0.1 MG/DL (0.0-0.2); BILIRUBIN,TOTAL 0.3 MG/DL (0.2-1.0); BLOOD UREA NITROGEN 14 MG/DL (7-18); CALCIUM LEVEL 10.2 MG/DL (8.5-10.1); CARBON DIOXIDE LEVEL 27 MEQ/L (21-32); CHLORIDE LEVEL 107 MEQ/L (98-107); GLOMERULAR FILTRATION RATE > 60.0 (>51); GLUCOSE, FASTING 134 MG/DL (70-100); LIPASE 112 U/L (73-393); POTASSIUM SERUM 4.1 MEQ/L (3.5-5.1); SODIUM LEVEL 140 MEQ/L (136-145); TOTAL PROTEIN 8.3 GM/DL (6.4-8.2)
[2017-09-12] MEDS ORDERED: SODIUM CHLORIDE 0.9% INJ 10 ML SYR IV (15:15)
[2017-09-13] MEDS ORDERED: SODIUM CHLORIDE 0.9% INJ 10 ML SYR IV (09:00)
== END 2017-09-12 15:40 | disposition home or self-care (01) ==
LOC: M ED 10:10
DX: G89.29 Other chronic pain (principal); R10.9 Unspecified abdominal pain; E11.9 Type 2 diabetes mellitus without complications; E78.5 Hyperlipidemia, unspecified; Z87.442 Personal history of urinary calculi; Z86.718 Personal history of other venous thrombosis and embolism; J45.909 Unspecified asthma, uncomplicated; I95.9 Hypotension, unspecified; E83.42 Hypomagnesemia; K31.84 Gastroparesis; I51.7 Cardiomegaly; Z95.9 Presence of cardiac and vascular implant and graft, unspecified; Z96.9 Presence of functional implant, unspecified; Z93.3 Colostomy status; Z79.4 Long term (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; Z79.899 Other long term (current) drug therapy; Z88.6 Allergy status to analgesic agent; Z88.1 Allergy status to other antibiotic agents; Z88.5 Allergy status to narcotic agent; Z88.8 Allergy status to other drugs, medicaments and biological substances; Z88.0 Allergy status to penicillin; Z91.040 Latex allergy status; Z91.89 Other specified personal risk factors, not elsewhere classified; Z91.018 Allergy to other foods
CPT/HCPCS: J1170

== ENCOUNTER 2017-09-13 15:27 | Inpatient (IN) | payer OTHER ==
[2017-09-13 16:38] LABS: BASO % 0.5 % (0.0-1.0); EOS # 0.1 10^3/uL (0.0-0.50); EOS % 1.8 % (0.0-3.0); HEMATOCRIT 34.8 % (36.0-47.0); HEMOGLOBIN 10.9 g/dl (12.0-15.5); IMMATURE GRANULOCYTE % 0.2 % (0-3.0); LYMPH # 1.8 10^3/uL (1.5-4.5); LYMPH % 29.6 % (24.0-44.0); MEAN CORPUSCULAR HEMOGLOBIN 30.1 pg (27.0-33.0); MEAN CORPUSCULAR HGB CONC 31.3 g/dl (32.0-36.5); MEAN CORPUSCULAR VOLUME 96.1 fl (80.0-96.0); MONO # 0.6 10^3/uL (0.0-0.8); MONO % 9.1 % (0.0-5.0); NEUTROPHILS # 3.6 10^3/uL (1.8-7.7); NEUTROPHILS % 58.8 % (36.0-66.0); PLATELET COUNT, AUTOMATED 281 10^3/uL (150-450); RED BLOOD COUNT 3.62 10^6/uL (4.00-5.40); RED CELL DISTRIBUTION WIDTH 15.1 % (11.5-14.5)
[2017-09-13] MEDS: NS 1,000 ML IV ×2 (17:05→20:08)
[2017-09-13] MEDS: ONDANSETRON 4MG/2ML VIAL (J2405) IV (17:05)
[2017-09-13] MEDS: HYDROmorphone HCL 1 MG/ML SYRINGE (J1170) IV ×2 (17:06→21:24)
[2017-09-13 17:32] LABS: APPEARANCE, URINE CLOUDY (CLEAR); BACTERIA, URINE AUTO 1+ (NEGATIVE); BILIRUBIN, URINE AUTO NEGATIVE (NEGATIVE); BLOOD, URINE BLOOD NEGATIVE (NEGATIVE); COLOR, URINE YELLOW (YELLOW); GLUCOSE, URINE (UA) AUTO NEGATIVE (NEGATIVE); KETONE, URINE AUTO NEGATIVE (NEGATIVE); LEUKOCYTE ESTERASE, URINE AUTO 3+ (NEGATIVE); MUCUS, URINE SMALL (NEGATIVE); NITRITE, URINE AUTO NEGATIVE (NEGATIVE); PROTEIN, URINE AUTO NEGATIVE (NEGATIVE); RBC, URINE AUTO 6 /HPF (0-3); SPECIFIC GRAVITY URINE AUTO 1.026 (1.002-1.035); SQUAMOUS EPITHELIAL CELL UR AU 4 /HPF (0-6); TRANSITIONAL EPITHELIAL AUTO 1 /HPF; UROBILINOGEN, URINE AUTO 0.2 mg/dL (0.0-2.0); WBC, URINE AUTO 64 /HPF (0-3)
[2017-09-13 17:40] LABS: ALBUMIN 3.3 GM/DL (3.2-5.2); ALBUMIN/GLOBULIN RATIO 0.79 (1.00-1.93); ALKALINE PHOSPHATASE 127 U/L (45-117); ALT/SGPT 28 U/L (12-78); ANION GAP 7 MEQ/L (8-16); AST/SGOT 16 U/L (7-37); BILIRUBIN,TOTAL 0.1 MG/DL (0.2-1.0); BLOOD UREA NITROGEN 15 MG/DL (7-18); CALCIUM LEVEL 9.6 MG/DL (8.5-10.1); CARBON DIOXIDE LEVEL 27 MEQ/L (21-32); CHLORIDE LEVEL 108 MEQ/L (98-107); CREATININE FOR GFR 0.58 MG/DL (0.55-1.30); GLOMERULAR FILTRATION RATE > 60.0 (>51); GLUCOSE, FASTING 106 MG/DL (70-100); LIPASE 154 U/L (73-393); POTASSIUM SERUM 3.9 MEQ/L (3.5-5.1); SODIUM LEVEL 142 MEQ/L (136-145); TOTAL PROTEIN 7.5 GM/DL (6.4-8.2)
[2017-09-13] MEDS: KETOROLAC 30 MG/ML VIAL (J1885) IV (18:06)
[2017-09-13] MEDS ORDERED: ONDANSETRON 4MG/2ML VIAL (J2405) IM (20:15)
[2017-09-13] MEDS ORDERED: ACETAMINOPHEN TAB 650MG DOSE (2X325MG) PO (20:15)
[2017-09-13] MEDS ORDERED: MAGNESIUM CITRATE 300 ML BTL PO (20:15)
[2017-09-13] MEDS: SUCRALFATE 1 GM TAB PO (21:00)
[2017-09-13] MEDS ORDERED: GASTROGRAFIN SOLUTION 30ML PO (21:25)
[2017-09-13] MEDS: GASTROGRAFIN SOLUTION 30ML (Q9963) PO (22:18)
[2017-09-13] MEDS: SIMVASTATIN 20 MG TAB PO (22:19)
[2017-09-13] MEDS: LACTULOSE 20 GM/30 ML SYRUP UD PO (22:19)
[2017-09-13] MEDS: METOCLOPRAMIDE HCL LIQUID 10 MG/10 ML UDC PO (22:19)
[2017-09-13] MEDS: AMITRIPTYLINE 50 MG TAB PO (22:19)
[2017-09-13] MEDS ORDERED: FAMOTIDINE 20 MG TAB PO (22:19)
[2017-09-13] MEDS: FAMOTIDINE 20 MG TAB PO ×2 (22:31→22:32)
[2017-09-13] MEDS: ONDANSETRON 4 MG ORAL DISINTEGRATING TAB (Q0162 PER 1MG) PO (23:39)
[2017-09-14] MEDS ORDERED: DEXTROSE 50% 50 ML SYRINGE IV (00:30)
[2017-09-14] MEDS ORDERED: GLUCOSE 4 GM CHEW TABLET PO (00:30)
[2017-09-14] MEDS ORDERED: GLUCAGON FOR INJ 1 MG VIAL (J1610) SC (00:30)
[2017-09-14] MEDS: KETOROLAC 30 MG/ML VIAL (J1885) IV ×3 (03:20→21:02)
[2017-09-14 05:09] LABS: HEMATOCRIT 31.8 % (36.0-47.0); HEMOGLOBIN 9.9 g/dl (12.0-15.5); MEAN CORPUSCULAR HEMOGLOBIN 30.2 pg (27.0-33.0); MEAN CORPUSCULAR HGB CONC 31.1 g/dl (32.0-36.5); PLATELET COUNT, AUTOMATED 243 10^3/uL (150-450); RED BLOOD COUNT 3.28 10^6/uL (4.00-5.40); RED CELL DISTRIBUTION WIDTH 15.2 % (11.5-14.5); WHITE BLOOD COUNT 5.5 10^3/uL (4.0-10.0)
[2017-09-14 05:26] LABS: ALBUMIN 2.9 GM/DL (3.2-5.2); ALBUMIN/GLOBULIN RATIO 0.76 (1.00-1.93); ALKALINE PHOSPHATASE 122 U/L (45-117); ALT/SGPT 25 U/L (12-78); ANION GAP 5 MEQ/L (8-16); AST/SGOT 19 U/L (7-37); BILIRUBIN,TOTAL 0.2 MG/DL (0.2-1.0); BLOOD UREA NITROGEN 14 MG/DL (7-18); CALCIUM LEVEL 8.5 MG/DL (8.5-10.1); CARBON DIOXIDE LEVEL 27 MEQ/L (21-32); CHLORIDE LEVEL 111 MEQ/L (98-107); CREATININE FOR GFR 0.43 MG/DL (0.55-1.30); GLOMERULAR FILTRATION RATE > 60.0 (>51); GLUCOSE, FASTING 62 MG/DL (70-100); POTASSIUM SERUM 3.6 MEQ/L (3.5-5.1); SODIUM LEVEL 143 MEQ/L (136-145); TOTAL PROTEIN 6.7 GM/DL (6.4-8.2)
[2017-09-14] MEDS: HYDROmorphone (DILAUDID) 4 MG TAB PO ×4 (06:26→21:52)
[2017-09-14] MEDS: SYMBICORT 160/4.5MCG INHALER 6GM INH ×2 (07:25→20:08)
[2017-09-14] MEDS: HumaLOG INSULIN (NovoLOG) PER UNIT SC ×4 (07:27→21:00)
[2017-09-14] MEDS: LACTIC ACID 12% LOTION 225 GM BTL TOP (07:37)
[2017-09-14] MEDS: FAMOTIDINE 20 MG TAB PO ×2 (07:37→21:01)
[2017-09-14] MEDS: CETIRIZINE (ZyrTEC) 10 MG TAB PO (07:37)
[2017-09-14] MEDS: METOCLOPRAMIDE HCL LIQUID 10 MG/10 ML UDC PO ×4 (07:37→21:00)
[2017-09-14] MEDS: GEMFIBROZIL 600 MG TAB PO (07:37)
[2017-09-14] MEDS: AMITRIPTYLINE 50 MG TAB PO ×2 (07:38→21:01)
[2017-09-14] MEDS: LACTULOSE 20 GM/30 ML SYRUP UD PO ×3 (07:38→21:01)
[2017-09-14] MEDS: FOSFOMYCIN TROMETHAMINE 3 GM POWDER PACKET (MONUROL) PO (07:38)
[2017-09-14] MEDS: MULTIVITAMINS/MINERALS THERAP 1 TAB PO (07:38)
[2017-09-14] MEDS: MIRALAX *UNIT DOSE* 17GM PACKET PO ×3 (07:38→17:56)
[2017-09-14] MEDS: SUCRALFATE 1 GM TAB PO ×2 (07:38→21:01)
[2017-09-14] MEDS: AZELASTINE 137MCG NASAL SPY 30 ML (ASTELIN) ×2 (07:38→21:03)
[2017-09-14] MEDS: NS 1,000 ML IV ×2 (08:23→16:59)
[2017-09-14] MEDS: ONDANSETRON 4 MG ORAL DISINTEGRATING TAB (Q0162 PER 1MG) PO (08:23)
[2017-09-14 11:31] LABS: BEDSIDE GLUCOSE 69 MG/DL (70-105)
[2017-09-14 16:36] LABS: BEDSIDE GLUCOSE 136 MG/DL (70-105)
[2017-09-14] MEDS: LEVEMIR (INSULIN DETEMIR) 1 UNITS/0.01ML SC (21:00)
[2017-09-14] MEDS: SIMVASTATIN 20 MG TAB PO (21:01)
[2017-09-15] MEDS: NS 1,000 ML IV ×3 (02:08→22:08)
[2017-09-15] MEDS: KETOROLAC 30 MG/ML VIAL (J1885) IV ×4 (03:06→21:45)
[2017-09-15] MEDS: HYDROmorphone (DILAUDID) 4 MG TAB PO ×5 (04:12→22:35)
[2017-09-15 06:01] LABS: HEMATOCRIT 31.9 % (36.0-47.0); MEAN CORPUSCULAR HEMOGLOBIN 30.6 pg (27.0-33.0); MEAN CORPUSCULAR HGB CONC 31.3 g/dl (32.0-36.5); MEAN CORPUSCULAR VOLUME 97.6 fl (80.0-96.0); PLATELET COUNT, AUTOMATED 246 10^3/uL (150-450); RED BLOOD COUNT 3.27 10^6/uL (4.00-5.40); RED CELL DISTRIBUTION WIDTH 15.3 % (11.5-14.5); WHITE BLOOD COUNT 4.3 10^3/uL (4.0-10.0)
[2017-09-15 06:24] LABS: MAGNESIUM LEVEL 1.8 MG/DL (1.8-2.4)
[2017-09-15 06:31] LABS: ALBUMIN 2.9 GM/DL (3.2-5.2); ALBUMIN/GLOBULIN RATIO 0.81 (1.00-1.93); ALKALINE PHOSPHATASE 118 U/L (45-117); ALT/SGPT 26 U/L (12-78); ANION GAP 7 MEQ/L (8-16); AST/SGOT 15 U/L (7-37); BILIRUBIN,TOTAL 0.2 MG/DL (0.2-1.0); BLOOD UREA NITROGEN 13 MG/DL (7-18); CALCIUM LEVEL 8.7 MG/DL (8.5-10.1); CARBON DIOXIDE LEVEL 25 MEQ/L (21-32); CHLORIDE LEVEL 113 MEQ/L (98-107); CREATININE FOR GFR 0.47 MG/DL (0.55-1.30); GLOMERULAR FILTRATION RATE > 60.0 (>51); GLUCOSE, FASTING 103 MG/DL (70-100); POTASSIUM SERUM 3.9 MEQ/L (3.5-5.1); SODIUM LEVEL 145 MEQ/L (136-145); TOTAL PROTEIN 6.5 GM/DL (6.4-8.2)
[2017-09-15] MEDS: METOCLOPRAMIDE HCL LIQUID 10 MG/10 ML UDC PO ×4 (08:27→21:40)
[2017-09-15] MEDS: CETIRIZINE (ZyrTEC) 10 MG TAB PO (08:27)
[2017-09-15] MEDS: MULTIVITAMINS/MINERALS THERAP 1 TAB PO (08:27)
[2017-09-15] MEDS: HumaLOG INSULIN (NovoLOG) PER UNIT SC ×4 (08:27→21:00)
[2017-09-15] MEDS: GEMFIBROZIL 600 MG TAB PO (08:27)
[2017-09-15] MEDS: MIRALAX *UNIT DOSE* 17GM PACKET PO ×3 (08:27→17:21)
[2017-09-15] MEDS: AMITRIPTYLINE 50 MG TAB PO ×2 (08:27→21:40)
[2017-09-15] MEDS: SUCRALFATE 1 GM TAB PO ×2 (08:27→21:40)
[2017-09-15] MEDS: LACTULOSE 20 GM/30 ML SYRUP UD PO ×3 (08:28→21:40)
[2017-09-15] MEDS: LACTIC ACID 12% LOTION 225 GM BTL TOP (08:28)
[2017-09-15] MEDS: AZELASTINE 137MCG NASAL SPY 30 ML (ASTELIN) ×2 (08:28→21:41)
[2017-09-15] MEDS: FAMOTIDINE 20 MG TAB PO ×2 (08:28→21:40)
[2017-09-15] MEDS: SYMBICORT 160/4.5MCG INHALER 6GM INH ×2 (09:53→20:00)
[2017-09-15 11:45] LABS: BEDSIDE GLUCOSE 223 MG/DL (70-105)
[2017-09-15 12:14] LABS: BEDSIDE GLUCOSE 70 MG/DL (70-105)
[2017-09-15 16:43] LABS: BEDSIDE GLUCOSE 175 MG/DL (70-105)
[2017-09-15] MEDS: ONDANSETRON 4 MG ORAL DISINTEGRATING TAB (Q0162 PER 1MG) PO (18:07)
[2017-09-15 20:27] LABS: BEDSIDE GLUCOSE 162 MG/DL (70-105)
[2017-09-15] MEDS: LEVEMIR (INSULIN DETEMIR) 1 UNITS/0.01ML SC (21:00)
[2017-09-15] MEDS: SIMVASTATIN 20 MG TAB PO (21:40)
[2017-09-16] MEDS: KETOROLAC 30 MG/ML VIAL (J1885) IV ×4 (04:12→21:44)
[2017-09-16] MEDS: HYDROmorphone (DILAUDID) 4 MG TAB PO ×4 (05:10→23:16)
[2017-09-16 05:58] LABS: MEAN CORPUSCULAR HEMOGLOBIN 30.2 pg (27.0-33.0); MEAN CORPUSCULAR HGB CONC 31.3 g/dl (32.0-36.5); MEAN CORPUSCULAR VOLUME 96.7 fl (80.0-96.0); PLATELET COUNT, AUTOMATED 248 10^3/uL (150-450); RED BLOOD COUNT 3.31 10^6/uL (4.00-5.40); RED CELL DISTRIBUTION WIDTH 15.4 % (11.5-14.5); WHITE BLOOD COUNT 4.7 10^3/uL (4.0-10.0)
[2017-09-16 06:25] LABS: ALBUMIN 2.9 GM/DL (3.2-5.2); ALBUMIN/GLOBULIN RATIO 0.83 (1.00-1.93); ALKALINE PHOSPHATASE 117 U/L (45-117); ALT/SGPT 24 U/L (12-78); ANION GAP 7 MEQ/L (8-16); AST/SGOT 16 U/L (7-37); BILIRUBIN,TOTAL 0.2 MG/DL (0.2-1.0); BLOOD UREA NITROGEN 9 MG/DL (7-18); CALCIUM LEVEL 8.4 MG/DL (8.5-10.1); CARBON DIOXIDE LEVEL 25 MEQ/L (21-32); CHLORIDE LEVEL 114 MEQ/L (98-107); CREATININE FOR GFR 0.52 MG/DL (0.55-1.30); GLOMERULAR FILTRATION RATE > 60.0 (>51); GLUCOSE, FASTING 116 MG/DL (70-100); MAGNESIUM LEVEL 1.7 MG/DL (1.8-2.4); POTASSIUM SERUM 3.9 MEQ/L (3.5-5.1); SODIUM LEVEL 146 MEQ/L (136-145); TOTAL PROTEIN 6.4 GM/DL (6.4-8.2)
[2017-09-16] MEDS: HumaLOG INSULIN (NovoLOG) PER UNIT SC ×4 (07:30→20:41)
[2017-09-16] MEDS: LACTULOSE 20 GM/30 ML SYRUP UD PO ×3 (07:37→21:44)
[2017-09-16] MEDS: GEMFIBROZIL 600 MG TAB PO (07:37)
[2017-09-16] MEDS: MIRALAX *UNIT DOSE* 17GM PACKET PO ×3 (07:37→16:59)
[2017-09-16] MEDS: CETIRIZINE (ZyrTEC) 10 MG TAB PO (07:37)
[2017-09-16] MEDS: METOCLOPRAMIDE HCL LIQUID 10 MG/10 ML UDC PO ×4 (07:37→21:44)
[2017-09-16] MEDS: MULTIVITAMINS/MINERALS THERAP 1 TAB PO (07:38)
[2017-09-16] MEDS: SUCRALFATE 1 GM TAB PO ×2 (07:38→21:44)
[2017-09-16] MEDS: FAMOTIDINE 20 MG TAB PO ×2 (07:38→21:44)
[2017-09-16] MEDS: NS 1,000 ML IV ×2 (07:38→21:43)
[2017-09-16] MEDS: AMITRIPTYLINE 50 MG TAB PO ×2 (07:38→21:44)
[2017-09-16] MEDS: AZELASTINE 137MCG NASAL SPY 30 ML (ASTELIN) ×2 (07:38→21:44)
[2017-09-16] MEDS: SYMBICORT 160/4.5MCG INHALER 6GM INH ×2 (07:42→19:46)
[2017-09-16 11:37] LABS: BEDSIDE GLUCOSE 183 MG/DL (70-105)
[2017-09-16] MEDS: MAG SULF 1GM/100ML (MAG RUN) 1 GM in APPROPRIATE DILUENT 1 EA IV (11:38)
[2017-09-16 16:38] LABS: BEDSIDE GLUCOSE 260 MG/DL (70-105)
[2017-09-16 19:48] LABS: BEDSIDE GLUCOSE 147 MG/DL (70-105)
[2017-09-16] MEDS: LEVEMIR (INSULIN DETEMIR) 1 UNITS/0.01ML SC (21:00)
[2017-09-16] MEDS: SIMVASTATIN 20 MG TAB PO (21:44)
[2017-09-17] MEDS: KETOROLAC 30 MG/ML VIAL (J1885) IV ×3 (04:55→17:32)
[2017-09-17 06:08] LABS: HEMATOCRIT 32.4 % (36.0-47.0); HEMOGLOBIN 10.3 g/dl (12.0-15.5); MEAN CORPUSCULAR HEMOGLOBIN 30.6 pg (27.0-33.0); MEAN CORPUSCULAR HGB CONC 31.8 g/dl (32.0-36.5); MEAN CORPUSCULAR VOLUME 96.1 fl (80.0-96.0); PLATELET COUNT, AUTOMATED 247 10^3/uL (150-450); RED BLOOD COUNT 3.37 10^6/uL (4.00-5.40); RED CELL DISTRIBUTION WIDTH 15.2 % (11.5-14.5); WHITE BLOOD COUNT 5.8 10^3/uL (4.0-10.0)
[2017-09-17 06:11] LABS: MAGNESIUM LEVEL 1.6 MG/DL (1.8-2.4)
[2017-09-17 06:17] LABS: ALBUMIN/GLOBULIN RATIO 0.81 (1.00-1.93); ALKALINE PHOSPHATASE 123 U/L (45-117); ALT/SGPT 26 U/L (12-78); ANION GAP 8 MEQ/L (8-16); AST/SGOT 16 U/L (7-37); BILIRUBIN,TOTAL 0.2 MG/DL (0.2-1.0); BLOOD UREA NITROGEN 6 MG/DL (7-18); CALCIUM LEVEL 8.8 MG/DL (8.5-10.1); CARBON DIOXIDE LEVEL 24 MEQ/L (21-32); CHLORIDE LEVEL 114 MEQ/L (98-107); GLOMERULAR FILTRATION RATE > 60.0 (>51); GLUCOSE, FASTING 135 MG/DL (70-100); POTASSIUM SERUM 3.7 MEQ/L (3.5-5.1); SODIUM LEVEL 146 MEQ/L (136-145); TOTAL PROTEIN 6.7 GM/DL (6.4-8.2)
[2017-09-17] MEDS: MIRALAX *UNIT DOSE* 17GM PACKET PO ×3 (07:53→17:32)
[2017-09-17] MEDS: MULTIVITAMINS/MINERALS THERAP 1 TAB PO (07:54)
[2017-09-17] MEDS: LACTULOSE 20 GM/30 ML SYRUP UD PO ×3 (07:54→20:13)
[2017-09-17] MEDS: SUCRALFATE 1 GM TAB PO ×2 (07:54→20:13)
[2017-09-17] MEDS: GEMFIBROZIL 600 MG TAB PO (07:54)
[2017-09-17] MEDS: FAMOTIDINE 20 MG TAB PO ×2 (07:54→20:13)
[2017-09-17] MEDS: AMITRIPTYLINE 50 MG TAB PO ×2 (07:54→20:11)
[2017-09-17] MEDS: METOCLOPRAMIDE HCL LIQUID 10 MG/10 ML UDC PO ×4 (07:54→20:12)
[2017-09-17] MEDS: CETIRIZINE (ZyrTEC) 10 MG TAB PO (07:54)
[2017-09-17] MEDS: NS 1,000 ML IV (07:55)
[2017-09-17] MEDS: HumaLOG INSULIN (NovoLOG) PER UNIT SC ×4 (07:55→20:13)
[2017-09-17] MEDS: AZELASTINE 137MCG NASAL SPY 30 ML (ASTELIN) ×2 (07:55→20:13)
[2017-09-17] MEDS: HYDROmorphone (DILAUDID) 4 MG TAB PO ×3 (07:57→21:53)
[2017-09-17] MEDS: SYMBICORT 160/4.5MCG INHALER 6GM INH ×2 (08:28→21:35)
[2017-09-17] MEDS: MAG SULF 1GM/100ML (MAG RUN) 1 GM in APPROPRIATE DILUENT 1 EA IV ×3 (10:12→12:16)
[2017-09-17 11:32] LABS: BEDSIDE GLUCOSE 286 MG/DL (70-105)
[2017-09-17 17:10] LABS: BEDSIDE GLUCOSE 253 MG/DL (70-105)
[2017-09-17 19:51] LABS: BEDSIDE GLUCOSE 221 MG/DL (70-105)
[2017-09-17] MEDS: LEVEMIR (INSULIN DETEMIR) 1 UNITS/0.01ML SC (20:12)
[2017-09-17] MEDS: SIMVASTATIN 20 MG TAB PO (20:13)
[2017-09-18] MEDS: KETOROLAC 30 MG/ML VIAL (J1885) IV ×2 (00:25→07:48)
[2017-09-18] MEDS: HYDROmorphone (DILAUDID) 4 MG TAB PO ×2 (05:16→12:32)
[2017-09-18 05:31] LABS: HEMATOCRIT 33.8 % (36.0-47.0); HEMOGLOBIN 10.8 g/dl (12.0-15.5); MEAN CORPUSCULAR HEMOGLOBIN 30.3 pg (27.0-33.0); MEAN CORPUSCULAR VOLUME 94.7 fl (80.0-96.0); PLATELET COUNT, AUTOMATED 260 10^3/uL (150-450); RED BLOOD COUNT 3.57 10^6/uL (4.00-5.40); RED CELL DISTRIBUTION WIDTH 15.3 % (11.5-14.5); WHITE BLOOD COUNT 5.7 10^3/uL (4.0-10.0)
[2017-09-18 05:59] LABS: MAGNESIUM LEVEL 1.7 MG/DL (1.8-2.4)
[2017-09-18 06:05] LABS: ALBUMIN 3.3 GM/DL (3.2-5.2); ALBUMIN/GLOBULIN RATIO 0.87 (1.00-1.93); ALKALINE PHOSPHATASE 124 U/L (45-117); ALT/SGPT 27 U/L (12-78); ANION GAP 8 MEQ/L (8-16); AST/SGOT 15 U/L (7-37); BILIRUBIN,TOTAL 0.2 MG/DL (0.2-1.0); BLOOD UREA NITROGEN 7 MG/DL (7-18); CALCIUM LEVEL 9.6 MG/DL (8.5-10.1); CARBON DIOXIDE LEVEL 26 MEQ/L (21-32); CHLORIDE LEVEL 109 MEQ/L (98-107); CREATININE FOR GFR 0.57 MG/DL (0.55-1.30); GLOMERULAR FILTRATION RATE > 60.0 (>51); GLUCOSE, FASTING 157 MG/DL (70-100); POTASSIUM SERUM 4.1 MEQ/L (3.5-5.1); SODIUM LEVEL 143 MEQ/L (136-145); TOTAL PROTEIN 7.1 GM/DL (6.4-8.2)
[2017-09-18] MEDS: HumaLOG INSULIN (NovoLOG) PER UNIT SC ×2 (07:46→12:32)
[2017-09-18] MEDS: AMITRIPTYLINE 50 MG TAB PO (07:47)
[2017-09-18] MEDS: MULTIVITAMINS/MINERALS THERAP 1 TAB PO (07:47)
[2017-09-18] MEDS: GEMFIBROZIL 600 MG TAB PO (07:47)
[2017-09-18] MEDS: SUCRALFATE 1 GM TAB PO (07:47)
[2017-09-18] MEDS: MIRALAX *UNIT DOSE* 17GM PACKET PO ×2 (07:47→12:32)
[2017-09-18] MEDS: FAMOTIDINE 20 MG TAB PO (07:47)
[2017-09-18] MEDS: CETIRIZINE (ZyrTEC) 10 MG TAB PO (07:47)
[2017-09-18] MEDS: LACTULOSE 20 GM/30 ML SYRUP UD PO (07:47)
[2017-09-18] MEDS: METOCLOPRAMIDE HCL LIQUID 10 MG/10 ML UDC PO ×2 (07:47→12:32)
[2017-09-18] MEDS: LACTIC ACID 12% LOTION 225 GM BTL TOP (07:48)
[2017-09-18] MEDS: AZELASTINE 137MCG NASAL SPY 30 ML (ASTELIN) (07:48)
[2017-09-18] MEDS: SYMBICORT 160/4.5MCG INHALER 6GM INH (08:00)
[2017-09-18 12:24] LABS: BEDSIDE GLUCOSE 258 MG/DL (70-105)
[2017-09-18] MEDS: SODIUM CHLORIDE 0.9% INJ 10 ML SYR IV (13:33)
[2017-09-19] MEDS ORDERED: SODIUM CHLORIDE 0.9% INJ 10 ML SYR IV (09:00)
== END 2017-09-18 13:44 | disposition home or self-care (01) | DRG 254 ==
LOC: M ED 15:27 → M ED INP 20:27 → M MSPAV 21:54
DX: K43.5 Parastomal hernia without obstruction or gangrene (principal); E11.40 Type 2 diabetes mellitus with diabetic neuropathy, unspecified; K91.2 Postsurgical malabsorption, not elsewhere classified; N39.0 Urinary tract infection, site not specified; E83.42 Hypomagnesemia; R10.9 Unspecified abdominal pain; R11.2 Nausea with vomiting, unspecified; E66.9 Obesity, unspecified; K21.9 Gastro-esophageal reflux disease without esophagitis; E78.5 Hyperlipidemia, unspecified; Z93.2 Ileostomy status; Z79.4 Long term (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; Z79.899 Other long term (current) drug therapy; Z91.040 Latex allergy status; Z88.0 Allergy status to penicillin; Z88.2 Allergy status to sulfonamides; Z91.048 Other nonmedicinal substance allergy status; Z88.1 Allergy status to other antibiotic agents; Z91.041 Radiographic dye allergy status; Z88.5 Allergy status to narcotic agent; Z88.6 Allergy status to analgesic agent; Z88.8 Allergy status to other drugs, medicaments and biological substances; Z90.710 Acquired absence of both cervix and uterus; Z95.828 Presence of other vascular implants and grafts; Z87.442 Personal history of urinary calculi

== ENCOUNTER 2017-09-24 13:43 | Outpatient (CLI) | payer OTHER ==
[2017-09-24] MEDS: SODIUM CHLORIDE 0.9% INJ 10 ML SYR IV (14:00)
[2017-09-24 15:17] LABS: MAGNESIUM LEVEL 1.8 MG/DL (1.8-2.4)
== END 2017-09-24 15:00 | disposition home or self-care (01) ==
LOC: M INFU 13:43
DX: E83.42 Hypomagnesemia (principal); T82.9XXA Unspecified complication of cardiac and vascular prosthetic device, implant and graft, initial encounter; Z88.8 Allergy status to other drugs, medicaments and biological substances; Z88.5 Allergy status to narcotic agent; Z88.1 Allergy status to other antibiotic agents; Z88.3 Allergy status to other anti-infective agents; Z88.2 Allergy status to sulfonamides; Z88.0 Allergy status to penicillin; Z91.02 Food additives allergy status; Z91.040 Latex allergy status; Z91.048 Other nonmedicinal substance allergy status; Z91.018 Allergy to other foods; Z79.899 Other long term (current) drug therapy; Z79.891 Long term (current) use of opiate analgesic; Z79.4 Long term (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
CPT/HCPCS: 99195

== ENCOUNTER 2017-10-08 07:13 | Outpatient (CLI) | payer OTHER ==
[2017-10-08 08:01] LABS: MAGNESIUM LEVEL 1.7 MG/DL (1.8-2.4)
[2017-10-08] MEDS: SODIUM CHLORIDE 0.9% INJ 10 ML SYR IV (08:09)
== END 2017-10-08 07:30 | disposition home or self-care (01) ==
LOC: M INFU 07:13
DX: E83.42 Hypomagnesemia (principal); Z79.899 Other long term (current) drug therapy; Z79.4 Long term (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; Z79.891 Long term (current) use of opiate analgesic; Z88.8 Allergy status to other drugs, medicaments and biological substances; Z88.5 Allergy status to narcotic agent; Z88.1 Allergy status to other antibiotic agents; Z88.0 Allergy status to penicillin; Z88.2 Allergy status to sulfonamides; Z88.3 Allergy status to other anti-infective agents; Z91.048 Other nonmedicinal substance allergy status; Z91.040 Latex allergy status; Z91.02 Food additives allergy status; Z91.018 Allergy to other foods
CPT/HCPCS: 36591

== ENCOUNTER 2017-10-10 06:22 | Outpatient (CLI) | payer OTHER ==
[2017-10-10] MEDS: MAGNESIUM SULFATE 1 GM/100 ML D5W BAG (10MG/ML) (J3475) IV ×4 (09:11→12:00)
[2017-10-10] MEDS: SODIUM CHLORIDE 0.9% INJ 10 ML SYR IV (12:30)
== END 2017-10-10 13:15 | disposition home or self-care (01) ==
LOC: M INFU 06:22
DX: E83.42 Hypomagnesemia (principal); Z88.5 Allergy status to narcotic agent; Z88.1 Allergy status to other antibiotic agents; Z88.8 Allergy status to other drugs, medicaments and biological substances; Z88.3 Allergy status to other anti-infective agents; Z88.2 Allergy status to sulfonamides; Z88.0 Allergy status to penicillin; Z79.899 Other long term (current) drug therapy; Z91.048 Other nonmedicinal substance allergy status; Z91.040 Latex allergy status; Z91.02 Food additives allergy status; Z91.018 Allergy to other foods; Z79.891 Long term (current) use of opiate analgesic; Z79.4 Long term (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
CPT/HCPCS: J3475

== ENCOUNTER 2017-10-14 06:46 | Outpatient (CLI) | payer OTHER ==
[2017-10-14] MEDS: SODIUM CHLORIDE 0.9% INJ 10 ML SYR IV (07:08)
[2017-10-14 07:31] LABS: MAGNESIUM LEVEL 1.7 MG/DL (1.8-2.4)
== END 2017-10-14 07:15 | disposition home or self-care (01) ==
LOC: M INFU 06:46
DX: E83.42 Hypomagnesemia (principal); Z88.5 Allergy status to narcotic agent; Z88.1 Allergy status to other antibiotic agents; Z88.8 Allergy status to other drugs, medicaments and biological substances; Z88.3 Allergy status to other anti-infective agents; Z88.2 Allergy status to sulfonamides; Z88.0 Allergy status to penicillin; Z91.048 Other nonmedicinal substance allergy status; Z91.040 Latex allergy status; Z91.02 Food additives allergy status; Z91.018 Allergy to other foods; Z79.891 Long term (current) use of opiate analgesic; Z79.899 Other long term (current) drug therapy; Z79.4 Long term (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
CPT/HCPCS: 36591

== ENCOUNTER 2017-10-17 06:27 | Outpatient (CLI) | payer OTHER ==
[2017-10-17] MEDS: MAGNESIUM SULFATE 1 GM/100 ML D5W BAG (10MG/ML) (J3475) IV ×4 (06:55→10:00)
[2017-10-17] MEDS: SODIUM CHLORIDE 0.9% INJ 10 ML SYR IV (09:00)
== END 2017-10-17 11:00 | disposition home or self-care (01) ==
LOC: M INFU 06:27
DX: E83.42 Hypomagnesemia (principal); Z88.2 Allergy status to sulfonamides; Z88.0 Allergy status to penicillin; Z88.3 Allergy status to other anti-infective agents; Z88.8 Allergy status to other drugs, medicaments and biological substances; Z88.1 Allergy status to other antibiotic agents; Z88.5 Allergy status to narcotic agent; Z91.02 Food additives allergy status; Z91.048 Other nonmedicinal substance allergy status; Z91.018 Allergy to other foods; Z91.040 Latex allergy status; Z79.891 Long term (current) use of opiate analgesic; Z79.899 Other long term (current) drug therapy; Z79.4 Long term (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
CPT/HCPCS: J3475

== ENCOUNTER 2017-10-24 06:58 | Outpatient (CLI) | payer OTHER ==
[2017-10-24] MEDS: MAGNESIUM SULFATE 1 GM/100 ML D5W BAG (10MG/ML) (J3475) IV ×3 (08:03→10:00)
== END 2017-10-24 12:20 | disposition home or self-care (01) ==
LOC: M INFU 06:58
DX: E83.42 Hypomagnesemia (principal); Z88.5 Allergy status to narcotic agent; Z88.1 Allergy status to other antibiotic agents; Z88.8 Allergy status to other drugs, medicaments and biological substances; Z88.0 Allergy status to penicillin; Z88.2 Allergy status to sulfonamides; Z88.3 Allergy status to other anti-infective agents; Z91.048 Other nonmedicinal substance allergy status; Z91.040 Latex allergy status; Z91.018 Allergy to other foods; Z91.02 Food additives allergy status; Z79.899 Other long term (current) drug therapy; Z79.891 Long term (current) use of opiate analgesic; Z79.4 Long term (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
CPT/HCPCS: J3475

== ENCOUNTER 2017-10-28 05:59 | Inpatient (IN) | payer OTHER ==
[2017-10-28 06:59] LABS: BEDSIDE GLUCOSE 97 MG/DL (70-105)
[2017-10-28] MEDS ORDERED: LIDOCAINE 2% INJ 100 MG/5 ML SDV (FOR ANES.) As Ordered (07:11)
[2017-10-28] MEDS ORDERED: ROCURONIUM BROMIDE 50 MG/5 ML VIAL As Ordered ×2 (07:11→09:39)
[2017-10-28] MEDS ORDERED: PROPOFOL 200 MG/20 ML VIAL As Ordered (07:11)
[2017-10-28] MEDS ORDERED: MIDAZOLAM INJ 2 MG/2 ML VIAL (J2250) As Ordered (07:12)
[2017-10-28] MEDS ORDERED: fentaNYL 250 MCG/5 ML INJECTION (J3010) As Ordered (07:12)
[2017-10-28] MEDS: BUPIVACAINE/EPIN 0.25% 30 ML VIAL As Ordered (07:14)
[2017-10-28] MEDS ORDERED: BUPIVACAINE LIPOSOME/PF 1.3% 20 ML VIAL (13.3MG/ML)(EXPAREL) As Ordered (07:14)
[2017-10-28] MEDS ORDERED: BUPIVACAINE HCL 0.25% 30 ML VIAL As Ordered (07:14)
[2017-10-28] MEDS ORDERED: SCOPOLAMINE 1MG TRANSDERMAL PATCH As Ordered (07:15)
[2017-10-28] MEDS ORDERED: LR 1,000 ML IV (07:30)
[2017-10-28] MEDS: SCOPOLAMINE 1MG TRANSDERMAL PATCH TOP (07:30)
[2017-10-28] MEDS ORDERED: LIDOCAINE 1% MDV 20ML VIAL SQ (07:30)
[2017-10-28] MEDS: cefTRIAXone SOD 1 GM VIAL (J0696) As Ordered (08:48)
[2017-10-28] MEDS ORDERED: NEOSTIGMINE 10 MG/10 ML VIAL (J2710) As Ordered (08:57)
[2017-10-28] MEDS ORDERED: GLYCOPYRROLATE INJ 0.2 MG/ML 2 ML VIAL As Ordered (08:57)
[2017-10-28] MEDS ORDERED: ONDANSETRON 4MG/2ML VIAL (J2405) As Ordered (08:57)
[2017-10-28] MEDS ORDERED: HYDROmorphone HCL 2 MG/ML 1ML VIAL (J1170) As Ordered (08:57)
[2017-10-28] MEDS ORDERED: METOCLOPRAMIDE INJ 10MG/2ML VIAL (J2765) As Ordered (08:57)
[2017-10-28] MEDS: LR 1,000 ML IV (11:47)
[2017-10-28 12:00] LABS: BEDSIDE GLUCOSE 160 MG/DL (70-105)
[2017-10-28] MEDS ORDERED: METOCLOPRAMIDE INJ 10MG/2ML VIAL (J2765) IV (12:00)
[2017-10-28] MEDS ORDERED: ONDANSETRON 4MG/2ML VIAL (J2405) IV (12:00)
[2017-10-28] MEDS ORDERED: ACETAMINOPHEN TAB 650MG DOSE (2X325MG) PO (12:15)
[2017-10-28] MEDS: NS 1,000 ML IV ×3 (12:45→20:15)
[2017-10-28] MEDS: HYDROMORPHONE HCL 0.5 MG/ 0.5 ML SYRINGE (J1170 PER 1) IV ×5 (12:52→13:33)
[2017-10-28] MEDS ORDERED: HYDROMORPHONE HCL 0.5 MG/ 0.5 ML SYRINGE (J1170 PER 1) As Ordered (13:03)
[2017-10-28] MEDS: HYDROmorphone (DILAUDID) 4 MG TAB PO (13:11)
[2017-10-28] MEDS: PANTOPRAZOLE 40MG INJ (PROTONIX) (C9113) IV (16:56)
[2017-10-28 17:06] LABS: BEDSIDE GLUCOSE 130 MG/DL (70-105)
[2017-10-28] MEDS: HumaLOG INSULIN (NovoLOG) PER UNIT SC (18:08)
[2017-10-28] MEDS: HYDROmorphone HCL 2 MG/ML 1ML VIAL (J1170) IV ×2 (19:25→22:43)
[2017-10-28] MEDS: AZELASTINE 137MCG NASAL SPY 30 ML (ASTELIN) (20:15)
[2017-10-28] MEDS: LACTIC ACID 12% LOTION 225 GM BTL TOP (20:16)
[2017-10-28] MEDS: SYMBICORT 160/4.5MCG INHALER 6GM INH (21:00)
[2017-10-29 01:17] LABS: BEDSIDE GLUCOSE 101 MG/DL (70-105)
[2017-10-29] MEDS: HYDROmorphone HCL 2 MG/ML 1ML VIAL (J1170) IV ×7 (02:41→21:50)
[2017-10-29] MEDS: NS 1,000 ML IV ×2 (03:58→11:34)
[2017-10-29] MEDS: HumaLOG INSULIN (NovoLOG) PER UNIT SC ×4 (06:00→17:03)
[2017-10-29 06:14] LABS: HEMATOCRIT 36.6 % (36.0-47.0); HEMOGLOBIN 11.5 g/dl (12.0-15.5); MEAN CORPUSCULAR HEMOGLOBIN 30.7 pg (27.0-33.0); MEAN CORPUSCULAR HGB CONC 31.4 g/dl (32.0-36.5); MEAN CORPUSCULAR VOLUME 97.9 fl (80.0-96.0); PLATELET COUNT, AUTOMATED 304 10^3/uL (150-450); RED BLOOD COUNT 3.74 10^6/uL (4.00-5.40); RED CELL DISTRIBUTION WIDTH 14.9 % (11.5-14.5)
[2017-10-29 06:38] LABS: BEDSIDE GLUCOSE 107 MG/DL (70-105)
[2017-10-29 06:47] LABS: ALBUMIN 2.2 GM/DL (3.2-5.2); ALKALINE PHOSPHATASE 105 U/L (45-117); ALT/SGPT 27 U/L (12-78); ANION GAP 9 MEQ/L (8-16); AST/SGOT 21 U/L (7-37); BILIRUBIN,TOTAL 0.4 MG/DL (0.2-1.0); BLOOD UREA NITROGEN 16 MG/DL (7-18); CALCIUM LEVEL 8.9 MG/DL (8.5-10.1); CARBON DIOXIDE LEVEL 26 MEQ/L (21-32); CHLORIDE LEVEL 106 MEQ/L (98-107); CREATININE FOR GFR 0.56 MG/DL (0.55-1.30); GLOMERULAR FILTRATION RATE > 60.0 (>51); GLUCOSE, FASTING 103 MG/DL (70-100); MAGNESIUM LEVEL 1.7 MG/DL (1.8-2.4); POTASSIUM SERUM 3.6 MEQ/L (3.5-5.1); SODIUM LEVEL 141 MEQ/L (136-145); TOTAL PROTEIN 6.6 GM/DL (6.4-8.2)
[2017-10-29] MEDS: SYMBICORT 160/4.5MCG INHALER 6GM INH ×2 (08:23→21:26)
[2017-10-29] MEDS: LACTIC ACID 12% LOTION 225 GM BTL TOP ×2 (08:58→20:47)
[2017-10-29] MEDS: ONDANSETRON 4MG/2ML VIAL (J2405) IV ×2 (08:59→15:16)
[2017-10-29] MEDS: PANTOPRAZOLE 40MG INJ (PROTONIX) (C9113) IV (08:59)
[2017-10-29] MEDS: AZELASTINE 137MCG NASAL SPY 30 ML (ASTELIN) ×2 (08:59→20:47)
[2017-10-29 11:33] LABS: BEDSIDE GLUCOSE 95 MG/DL (70-105)
[2017-10-29 17:03] LABS: BEDSIDE GLUCOSE 100 MG/DL (70-105)
[2017-10-29] MEDS: MAG SULF 1GM/100ML (MAG RUN) 1 GM in APPROPRIATE DILUENT 1 EA IV (19:27)
[2017-10-30 00:24] LABS: BEDSIDE GLUCOSE 107 MG/DL (70-105)
[2017-10-30] MEDS: HYDROmorphone HCL 2 MG/ML 1ML VIAL (J1170) IV ×8 (00:53→23:53)
[2017-10-30] MEDS: NS 1,000 ML IV ×4 (03:22→20:13)
[2017-10-30 05:38] LABS: HEMATOCRIT 32.8 % (36.0-47.0); HEMOGLOBIN 10.1 g/dl (12.0-15.5); MEAN CORPUSCULAR HEMOGLOBIN 30.1 pg (27.0-33.0); MEAN CORPUSCULAR HGB CONC 30.8 g/dl (32.0-36.5); MEAN CORPUSCULAR VOLUME 97.9 fl (80.0-96.0); PLATELET COUNT, AUTOMATED 313 10^3/uL (150-450); RED BLOOD COUNT 3.35 10^6/uL (4.00-5.40); RED CELL DISTRIBUTION WIDTH 14.8 % (11.5-14.5); WHITE BLOOD COUNT 9.1 10^3/uL (4.0-10.0)
[2017-10-30 05:58] LABS: ALBUMIN 2.3 GM/DL (3.2-5.2); ALBUMIN/GLOBULIN RATIO 0.46 (1.00-1.93); ALKALINE PHOSPHATASE 114 U/L (45-117); ALT/SGPT 21 U/L (12-78); ANION GAP 10 MEQ/L (8-16); AST/SGOT 16 U/L (7-37); BILIRUBIN,TOTAL 0.4 MG/DL (0.2-1.0); BLOOD UREA NITROGEN 11 MG/DL (7-18); CALCIUM LEVEL 9.3 MG/DL (8.5-10.1); CARBON DIOXIDE LEVEL 27 MEQ/L (21-32); CHLORIDE LEVEL 106 MEQ/L (98-107); CREATININE FOR GFR 0.47 MG/DL (0.55-1.30); GLOMERULAR FILTRATION RATE > 60.0 (>51); GLUCOSE, FASTING 115 MG/DL (70-100); MAGNESIUM LEVEL 1.9 MG/DL (1.8-2.4); POTASSIUM SERUM 3.4 MEQ/L (3.5-5.1); SODIUM LEVEL 143 MEQ/L (136-145); TOTAL PROTEIN 7.3 GM/DL (6.4-8.2)
[2017-10-30] MEDS: HumaLOG INSULIN (NovoLOG) PER UNIT SC ×5 (06:30→23:56)
[2017-10-30 06:36] LABS: BEDSIDE GLUCOSE 113 MG/DL (70-105)
[2017-10-30] MEDS: SYMBICORT 160/4.5MCG INHALER 6GM INH ×2 (07:32→20:34)
[2017-10-30] MEDS: SODIUM CHLORIDE 0.9% INJ 10 ML SYR IV (09:00)
[2017-10-30] MEDS: PANTOPRAZOLE 40MG INJ (PROTONIX) (C9113) IV (09:04)
[2017-10-30] MEDS: LACTIC ACID 12% LOTION 225 GM BTL TOP ×2 (10:19→20:14)
[2017-10-30] MEDS: AZELASTINE 137MCG NASAL SPY 30 ML (ASTELIN) ×2 (10:19→20:14)
[2017-10-30 11:25] LABS: BEDSIDE GLUCOSE 131 MG/DL (70-105)
[2017-10-30] MEDS: ONDANSETRON 4MG/2ML VIAL (J2405) IV (16:59)
[2017-10-30 17:07] LABS: BEDSIDE GLUCOSE 122 MG/DL (70-105)
[2017-10-30] MEDS: METOCLOPRAMIDE INJ 10MG/2ML VIAL (J2765) IV (20:14)
[2017-10-30 23:58] LABS: BEDSIDE GLUCOSE 162 MG/DL (70-105)
[2017-10-31] MEDS: NS 1,000 ML IV ×3 (04:15→23:29)
[2017-10-31] MEDS: HumaLOG INSULIN (NovoLOG) PER UNIT SC ×4 (06:00→23:37)
[2017-10-31 06:25] LABS: HEMATOCRIT 30.2 % (36.0-47.0); HEMOGLOBIN 9.4 g/dl (12.0-15.5); MEAN CORPUSCULAR HEMOGLOBIN 30.6 pg (27.0-33.0); MEAN CORPUSCULAR HGB CONC 31.1 g/dl (32.0-36.5); MEAN CORPUSCULAR VOLUME 98.4 fl (80.0-96.0); PLATELET COUNT, AUTOMATED 328 10^3/uL (150-450); RED BLOOD COUNT 3.07 10^6/uL (4.00-5.40); RED CELL DISTRIBUTION WIDTH 15.1 % (11.5-14.5); WHITE BLOOD COUNT 8.9 10^3/uL (4.0-10.0)
[2017-10-31 06:53] LABS: ALBUMIN 2.2 GM/DL (3.2-5.2); ALBUMIN/GLOBULIN RATIO 0.54 (1.00-1.93); ALKALINE PHOSPHATASE 110 U/L (45-117); ALT/SGPT 19 U/L (12-78); ANION GAP 11 MEQ/L (8-16); AST/SGOT 18 U/L (7-37); BILIRUBIN,TOTAL 0.3 MG/DL (0.2-1.0); BLOOD UREA NITROGEN 7 MG/DL (7-18); CARBON DIOXIDE LEVEL 22 MEQ/L (21-32); CHLORIDE LEVEL 110 MEQ/L (98-107); CREATININE FOR GFR 0.38 MG/DL (0.55-1.30); GLOMERULAR FILTRATION RATE > 60.0 (>51); GLUCOSE, FASTING 165 MG/DL (70-100); MAGNESIUM LEVEL 1.6 MG/DL (1.8-2.4); POTASSIUM SERUM 3.8 MEQ/L (3.5-5.1); SODIUM LEVEL 143 MEQ/L (136-145); TOTAL PROTEIN 6.3 GM/DL (6.4-8.2)
[2017-10-31 07:00] LABS: BEDSIDE GLUCOSE 144 MG/DL (70-105)
[2017-10-31] MEDS: SYMBICORT 160/4.5MCG INHALER 6GM INH ×2 (07:41→20:28)
[2017-10-31] MEDS: SODIUM CHLORIDE 0.9% INJ 10 ML SYR IV (07:55)
[2017-10-31] MEDS: LACTIC ACID 12% LOTION 225 GM BTL TOP ×2 (08:49→21:00)
[2017-10-31] MEDS: HYDROmorphone HCL 2 MG/ML 1ML VIAL (J1170) IV ×5 (08:49→23:26)
[2017-10-31] MEDS: PANTOPRAZOLE 40MG INJ (PROTONIX) (C9113) IV (08:49)
[2017-10-31] MEDS: AZELASTINE 137MCG NASAL SPY 30 ML (ASTELIN) ×2 (08:49→23:26)
[2017-10-31 11:40] LABS: BEDSIDE GLUCOSE 184 MG/DL (70-105)
[2017-10-31 16:51] LABS: BEDSIDE GLUCOSE 134 MG/DL (70-105)
[2017-10-31] MEDS: ONDANSETRON 4MG/2ML VIAL (J2405) IV (23:25)
[2017-10-31 23:54] LABS: BEDSIDE GLUCOSE 114 MG/DL (70-105)
[2017-11-01] MEDS: HYDROmorphone HCL 2 MG/ML 1ML VIAL (J1170) IV ×5 (02:55→20:58)
[2017-11-01] MEDS: LEVALBUTEROL 1.25 MG/0.5 ML CONCENTRATE NEB INH (03:19)
[2017-11-01 07:06] LABS: BEDSIDE GLUCOSE 148 MG/DL (70-105)
[2017-11-01 07:06] LABS: HEMATOCRIT 27.3 % (36.0-47.0); HEMOGLOBIN 8.6 g/dl (12.0-15.5); MEAN CORPUSCULAR HEMOGLOBIN 30.2 pg (27.0-33.0); MEAN CORPUSCULAR HGB CONC 31.5 g/dl (32.0-36.5); MEAN CORPUSCULAR VOLUME 95.8 fl (80.0-96.0); PLATELET COUNT, AUTOMATED 332 10^3/uL (150-450); RED BLOOD COUNT 2.85 10^6/uL (4.00-5.40)
[2017-11-01 07:29] LABS: ALBUMIN/GLOBULIN RATIO 0.53 (1.00-1.93); ALKALINE PHOSPHATASE 106 U/L (45-117); ALT/SGPT 17 U/L (12-78); ANION GAP 14 MEQ/L (8-16); AST/SGOT 12 U/L (7-37); BILIRUBIN,TOTAL 0.3 MG/DL (0.2-1.0); BLOOD UREA NITROGEN 5 MG/DL (7-18); CALCIUM LEVEL 8.6 MG/DL (8.5-10.1); CARBON DIOXIDE LEVEL 20 MEQ/L (21-32); CHLORIDE LEVEL 113 MEQ/L (98-107); CREATININE FOR GFR 0.28 MG/DL (0.55-1.30); GLOMERULAR FILTRATION RATE > 60.0 (>51); GLUCOSE, FASTING 153 MG/DL (70-100); MAGNESIUM LEVEL 1.6 MG/DL (1.8-2.4); POTASSIUM SERUM 3.2 MEQ/L (3.5-5.1); SODIUM LEVEL 147 MEQ/L (136-145); TOTAL PROTEIN 5.8 GM/DL (6.4-8.2)
[2017-11-01] MEDS: HumaLOG INSULIN (NovoLOG) PER UNIT SC ×4 (07:38→23:58)
[2017-11-01] MEDS: SYMBICORT 160/4.5MCG INHALER 6GM INH ×2 (08:24→20:43)
[2017-11-01] MEDS: SODIUM CHLORIDE 0.9% INJ 10 ML SYR IV (09:00)
[2017-11-01] MEDS: NS 1,000 ML IV ×3 (09:13→21:51)
[2017-11-01] MEDS: AZELASTINE 137MCG NASAL SPY 30 ML (ASTELIN) ×2 (09:29→20:56)
[2017-11-01] MEDS: PANTOPRAZOLE 40MG INJ (PROTONIX) (C9113) IV (09:29)
[2017-11-01] MEDS: LACTIC ACID 12% LOTION 225 GM BTL TOP ×2 (09:30→20:56)
[2017-11-01] MEDS ORDERED: PILL CRUSHER/CUTTER 1 EACH XX (10:30)
[2017-11-01] MEDS: HYDROmorphone (DILAUDID) 4 MG TAB PO (10:52)
[2017-11-01 12:00] LABS: BEDSIDE GLUCOSE 132 MG/DL (70-105)
[2017-11-01] MEDS ORDERED: KCL 20MEQ IN 100ML SWI (KRUN) 20 MEQ in APPROPRIATE DILUENT 1 EA IV (13:45)
[2017-11-01] MEDS: MAG SULF 1GM/100ML (MAG RUN) 1 GM in APPROPRIATE DILUENT 1 EA IV ×2 (14:02→15:14)
[2017-11-01] MEDS: KCL 10MEQ/100ML SWI (KRUN) 10 MEQ in APPROPRIATE DILUENT 1 EA IV ×2 (16:34→18:21)
[2017-11-01 18:19] LABS: BEDSIDE GLUCOSE 159 MG/DL (70-105)
[2017-11-01] MEDS: ONDANSETRON 4MG/2ML VIAL (J2405) IV (21:51)
[2017-11-01 23:54] LABS: BEDSIDE GLUCOSE 116 MG/DL (70-105)
[2017-11-02] MEDS: HYDROmorphone HCL 2 MG/ML 1ML VIAL (J1170) IV ×6 (01:26→21:13)
[2017-11-02 05:57] LABS: BEDSIDE GLUCOSE 156 MG/DL (70-105)
[2017-11-02] MEDS: HumaLOG INSULIN (NovoLOG) PER UNIT SC ×3 (06:02→18:00)
[2017-11-02 06:07] LABS: HEMOGLOBIN 9.3 g/dl (12.0-15.5); MEAN CORPUSCULAR HEMOGLOBIN 29.9 pg (27.0-33.0); MEAN CORPUSCULAR HGB CONC 32.1 g/dl (32.0-36.5); MEAN CORPUSCULAR VOLUME 93.2 fl (80.0-96.0); PLATELET COUNT, AUTOMATED 354 10^3/uL (150-450); RED BLOOD COUNT 3.11 10^6/uL (4.00-5.40); RED CELL DISTRIBUTION WIDTH 15.1 % (11.5-14.5); WHITE BLOOD COUNT 7.1 10^3/uL (4.0-10.0)
[2017-11-02 06:34] LABS: ALBUMIN 2.1 GM/DL (3.2-5.2); ALBUMIN/GLOBULIN RATIO 0.53 (1.00-1.93); ALKALINE PHOSPHATASE 107 U/L (45-117); ALT/SGPT 18 U/L (12-78); ANION GAP 17 MEQ/L (8-16); AST/SGOT 10 U/L (7-37); BILIRUBIN,TOTAL 0.4 MG/DL (0.2-1.0); BLOOD UREA NITROGEN 3 MG/DL (7-18); CALCIUM LEVEL 8.5 MG/DL (8.5-10.1); CARBON DIOXIDE LEVEL 17 MEQ/L (21-32); CHLORIDE LEVEL 110 MEQ/L (98-107); GLOMERULAR FILTRATION RATE > 60.0 (>51); GLUCOSE, FASTING 153 MG/DL (70-100); MAGNESIUM LEVEL 1.5 MG/DL (1.8-2.4); POTASSIUM SERUM 3.1 MEQ/L (3.5-5.1); SODIUM LEVEL 144 MEQ/L (136-145); TOTAL PROTEIN 6.1 GM/DL (6.4-8.2)
[2017-11-02] MEDS: NS 1,000 ML IV ×3 (07:30→20:15)
[2017-11-02] MEDS: SYMBICORT 160/4.5MCG INHALER 6GM INH ×2 (07:49→20:07)
[2017-11-02] MEDS: SODIUM CHLORIDE 0.9% INJ 10 ML SYR IV (09:00)
[2017-11-02] MEDS: PANTOPRAZOLE 40MG INJ (PROTONIX) (C9113) IV (09:30)
[2017-11-02] MEDS: AZELASTINE 137MCG NASAL SPY 30 ML (ASTELIN) ×2 (09:31→21:12)
[2017-11-02] MEDS: LACTIC ACID 12% LOTION 225 GM BTL TOP ×2 (09:31→21:12)
[2017-11-02 12:03] LABS: BEDSIDE GLUCOSE 141 MG/DL (70-105)
[2017-11-02] MEDS: POTASSIUM CHLORIDE 10% LIQ 20 MEQ/15 ML UDC PO (13:03)
[2017-11-02 17:51] LABS: BEDSIDE GLUCOSE 146 MG/DL (70-105)
[2017-11-02] MEDS: MAG SULF 1GM/100ML (MAG RUN) 1 GM in APPROPRIATE DILUENT 1 EA IV ×4 (18:00→23:45)
[2017-11-03 00:01] LABS: BEDSIDE GLUCOSE 185 MG/DL (70-105)
[2017-11-03] MEDS: HumaLOG INSULIN (NovoLOG) PER UNIT SC ×5 (00:40→23:47)
[2017-11-03] MEDS: HYDROmorphone HCL 2 MG/ML 1ML VIAL (J1170) IV ×7 (00:59→21:37)
[2017-11-03] MEDS: KCL 10MEQ/100ML SWI (KRUN) 10 MEQ in APPROPRIATE DILUENT 1 EA IV ×4 (01:08→04:44)
[2017-11-03] MEDS: ONDANSETRON 4MG/2ML VIAL (J2405) IV (04:53)
[2017-11-03 05:35] LABS: HEMATOCRIT 29.1 % (36.0-47.0); HEMOGLOBIN 9.6 g/dl (12.0-15.5); MEAN CORPUSCULAR HEMOGLOBIN 30.4 pg (27.0-33.0); MEAN CORPUSCULAR VOLUME 92.1 fl (80.0-96.0); PLATELET COUNT, AUTOMATED 360 10^3/uL (150-450); RED BLOOD COUNT 3.16 10^6/uL (4.00-5.40); RED CELL DISTRIBUTION WIDTH 15.3 % (11.5-14.5); WHITE BLOOD COUNT 6.9 10^3/uL (4.0-10.0)
[2017-11-03 05:47] LABS: BEDSIDE GLUCOSE 165 MG/DL (70-105)
[2017-11-03 05:58] LABS: ALBUMIN 2.2 GM/DL (3.2-5.2); ALBUMIN/GLOBULIN RATIO 0.58 (1.00-1.93); ALKALINE PHOSPHATASE 109 U/L (45-117); ALT/SGPT 17 U/L (12-78); ANION GAP 14 MEQ/L (8-16); AST/SGOT 11 U/L (7-37); BILIRUBIN,TOTAL 0.3 MG/DL (0.2-1.0); BLOOD UREA NITROGEN 3 MG/DL (7-18); CALCIUM LEVEL 8.2 MG/DL (8.5-10.1); CARBON DIOXIDE LEVEL 19 MEQ/L (21-32); CHLORIDE LEVEL 107 MEQ/L (98-107); GLOMERULAR FILTRATION RATE > 60.0 (>51); GLUCOSE, FASTING 154 MG/DL (70-100); MAGNESIUM LEVEL 1.7 MG/DL (1.8-2.4); POTASSIUM SERUM 3.3 MEQ/L (3.5-5.1); SODIUM LEVEL 140 MEQ/L (136-145)
[2017-11-03] MEDS: NS 1,000 ML IV ×3 (06:26→20:15)
[2017-11-03] MEDS: SYMBICORT 160/4.5MCG INHALER 6GM INH ×2 (07:18→21:31)
[2017-11-03] MEDS: SODIUM CHLORIDE 0.9% INJ 10 ML SYR IV (08:36)
[2017-11-03] MEDS: PANTOPRAZOLE 40MG INJ (PROTONIX) (C9113) IV (08:37)
[2017-11-03] MEDS: LACTIC ACID 12% LOTION 225 GM BTL TOP ×2 (08:38→21:36)
[2017-11-03] MEDS: AZELASTINE 137MCG NASAL SPY 30 ML (ASTELIN) ×2 (08:38→21:35)
[2017-11-03] MEDS ORDERED: MAG SULF 1GM/100ML (MAG RUN) 1 GM in APPROPRIATE DILUENT 1 EA IV (10:00)
[2017-11-03] MEDS ORDERED: KCL 20MEQ IN 100ML SWI (KRUN) 20 MEQ in APPROPRIATE DILUENT 1 EA IV (10:00)
[2017-11-03] MEDS: KCL 10MEQ/100ML SWI (KRUN) X 2 DOSES (20MEQ TOTAL) IV ×2 (10:39→11:49)
[2017-11-03] MEDS: BENZONATATE 100 MG CAP PO (11:25)
[2017-11-03 11:59] LABS: BEDSIDE GLUCOSE 150 MG/DL (70-105)
[2017-11-03] MEDS: MAG SULF 1GM/100ML (MAG RUN) 1 GM in APPROPRIATE DILUENT 1 EA IV ×2 (13:21→14:55)
[2017-11-03 18:20] LABS: BEDSIDE GLUCOSE 159 MG/DL (70-105)
[2017-11-03] MEDS: AMINO AC/ELECTROLYTE/DEX/CALC 2,000 ML IV (19:55)
[2017-11-03] MEDS: FAT EMULSION IV 20% 500 ML IV (19:55)
[2017-11-03 23:37] LABS: BEDSIDE GLUCOSE 271 MG/DL (70-105)
[2017-11-04] MEDS: HYDROmorphone HCL 2 MG/ML 1ML VIAL (J1170) IV ×7 (01:03→22:37)
[2017-11-04] MEDS: ONDANSETRON 4MG/2ML VIAL (J2405) IV (04:09)
[2017-11-04] MEDS: SODIUM CHLORIDE 0.9% INJ 10 ML SYR IV ×3 (05:19→18:00)
[2017-11-04 05:25] LABS: HEMATOCRIT 29.6 % (36.0-47.0); HEMOGLOBIN 9.6 g/dl (12.0-15.5); MEAN CORPUSCULAR HEMOGLOBIN 30.2 pg (27.0-33.0); MEAN CORPUSCULAR HGB CONC 32.4 g/dl (32.0-36.5); MEAN CORPUSCULAR VOLUME 93.1 fl (80.0-96.0); PLATELET COUNT, AUTOMATED 376 10^3/uL (150-450); RED BLOOD COUNT 3.18 10^6/uL (4.00-5.40); RED CELL DISTRIBUTION WIDTH 15.4 % (11.5-14.5); WHITE BLOOD COUNT 7.2 10^3/uL (4.0-10.0)
[2017-11-04] MEDS: HumaLOG INSULIN (NovoLOG) PER UNIT SC ×3 (05:48→18:57)
[2017-11-04 06:21] LABS: ALBUMIN 2.1 GM/DL (3.2-5.2); ALKALINE PHOSPHATASE 111 U/L (45-117); ALT/SGPT 17 U/L (12-78); ANION GAP 14 MEQ/L (8-16); AST/SGOT 13 U/L (7-37); BILIRUBIN,TOTAL 0.2 MG/DL (0.2-1.0); BLOOD UREA NITROGEN 3 MG/DL (7-18); CALCIUM LEVEL 8.3 MG/DL (8.5-10.1); CARBON DIOXIDE LEVEL 20 MEQ/L (21-32); CHLORIDE LEVEL 105 MEQ/L (98-107); CREATININE FOR GFR 0.35 MG/DL (0.55-1.30); GLOMERULAR FILTRATION RATE > 60.0 (>51); GLUCOSE, FASTING 303 MG/DL (70-100); MAGNESIUM LEVEL 1.6 MG/DL (1.8-2.4); POTASSIUM SERUM 3.4 MEQ/L (3.5-5.1); SODIUM LEVEL 139 MEQ/L (136-145); TOTAL PROTEIN 6.3 GM/DL (6.4-8.2)
[2017-11-04 06:45] LABS: BEDSIDE GLUCOSE 311 MG/DL (70-105)
[2017-11-04] MEDS: PANTOPRAZOLE 40MG INJ (PROTONIX) (C9113) IV (08:23)
[2017-11-04] MEDS: AZELASTINE 137MCG NASAL SPY 30 ML (ASTELIN) ×2 (08:25→21:37)
[2017-11-04] MEDS: LACTIC ACID 12% LOTION 225 GM BTL TOP ×2 (08:26→21:37)
[2017-11-04] MEDS: SYMBICORT 160/4.5MCG INHALER 6GM INH ×2 (08:56→20:46)
[2017-11-04] MEDS: NS 1,000 ML IV ×3 (10:07→21:37)
[2017-11-04] MEDS: MAG SULF 1GM/100ML (MAG RUN) 1 GM in APPROPRIATE DILUENT 1 EA IV ×4 (10:28→15:18)
[2017-11-04] MEDS: KCL 10MEQ/100ML SWI (KRUN) 10 MEQ in APPROPRIATE DILUENT 1 EA IV ×4 (10:29→15:18)
[2017-11-04 12:22] LABS: BEDSIDE GLUCOSE 362 MG/DL (70-105)
[2017-11-04 18:30] LABS: BEDSIDE GLUCOSE 364 MG/DL (70-105)
[2017-11-04] MEDS: FAT EMULSION IV 20% 500 ML IV (18:40)
[2017-11-04] MEDS: AMINO AC/ELECTROLYTE/DEX/CALC 2,000 ML IV (18:41)
[2017-11-05 00:05] LABS: BEDSIDE GLUCOSE 359 MG/DL (70-105)
[2017-11-05] MEDS: HumaLOG INSULIN (NovoLOG) PER UNIT SC ×5 (00:14→23:59)
[2017-11-05] MEDS: ONDANSETRON 4MG/2ML VIAL (J2405) IV (02:02)
[2017-11-05] MEDS: HYDROmorphone HCL 2 MG/ML 1ML VIAL (J1170) IV ×7 (02:03→23:07)
[2017-11-05] MEDS: NS 1,000 ML IV (04:15)
[2017-11-05] MEDS: SODIUM CHLORIDE 0.9% INJ 10 ML SYR IV ×7 (06:00→23:08)
[2017-11-05 06:10] LABS: ANION GAP 9 MEQ/L (8-16); BLOOD UREA NITROGEN 6 MG/DL (7-18); CALCIUM LEVEL 8.7 MG/DL (8.5-10.1); CARBON DIOXIDE LEVEL 27 MEQ/L (21-32); CHLORIDE LEVEL 103 MEQ/L (98-107); CREATININE FOR GFR 0.43 MG/DL (0.55-1.30); GLOMERULAR FILTRATION RATE > 60.0 (>51); GLUCOSE, FASTING 342 MG/DL (70-100); MAGNESIUM LEVEL 1.9 MG/DL (1.8-2.4); POTASSIUM SERUM 3.3 MEQ/L (3.5-5.1); SODIUM LEVEL 139 MEQ/L (136-145)
[2017-11-05] MEDS: SYMBICORT 160/4.5MCG INHALER 6GM INH ×2 (07:35→21:54)
[2017-11-05] MEDS: AZELASTINE 137MCG NASAL SPY 30 ML (ASTELIN) ×2 (09:00→20:04)
[2017-11-05] MEDS: PANTOPRAZOLE 40MG INJ (PROTONIX) (C9113) IV (09:54)
[2017-11-05] MEDS: ALVIMOPAN 12 MG CAPSULE (ENTEREG) PO ×2 (09:54→20:03)
[2017-11-05] MEDS: LACTIC ACID 12% LOTION 225 GM BTL TOP ×2 (09:56→20:04)
[2017-11-05 11:34] LABS: BEDSIDE GLUCOSE 420 MG/DL (70-105)
[2017-11-05 17:01] LABS: BEDSIDE GLUCOSE 402 MG/DL (70-105)
[2017-11-05] MEDS: FAT EMULSION IV 20% 500 ML IV (18:01)
[2017-11-05] MEDS: [UNRECOGNIZED DRUG - MIXTURE] IV (18:01)
[2017-11-05 23:32] LABS: BEDSIDE GLUCOSE 389 MG/DL (70-105)
[2017-11-06] MEDS: HYDROmorphone HCL 2 MG/ML 1ML VIAL (J1170) IV ×6 (02:08→21:15)
[2017-11-06] MEDS: ONDANSETRON 4MG/2ML VIAL (J2405) IV ×2 (02:22→14:20)
[2017-11-06] MEDS: SODIUM CHLORIDE 0.9% INJ 10 ML SYR IV ×4 (05:36→17:59)
[2017-11-06 05:44] LABS: BEDSIDE GLUCOSE 396 MG/DL (70-105)
[2017-11-06] MEDS: HumaLOG INSULIN (NovoLOG) PER UNIT SC ×3 (06:15→17:58)
[2017-11-06] MEDS: SYMBICORT 160/4.5MCG INHALER 6GM INH ×2 (07:16→20:11)
[2017-11-06] MEDS: AZELASTINE 137MCG NASAL SPY 30 ML (ASTELIN) ×2 (09:00→21:14)
[2017-11-06] MEDS: PANTOPRAZOLE 40MG INJ (PROTONIX) (C9113) IV (09:24)
[2017-11-06] MEDS: LACTIC ACID 12% LOTION 225 GM BTL TOP ×2 (09:24→21:15)
[2017-11-06] MEDS: ALVIMOPAN 12 MG CAPSULE (ENTEREG) PO ×2 (09:24→21:14)
[2017-11-06 10:55] LABS: ANION GAP 8 MEQ/L (8-16); BLOOD UREA NITROGEN 11 MG/DL (7-18); CALCIUM LEVEL 9.4 MG/DL (8.5-10.1); CARBON DIOXIDE LEVEL 33 MEQ/L (21-32); CHLORIDE LEVEL 98 MEQ/L (98-107); GLOMERULAR FILTRATION RATE > 60.0 (>51); GLUCOSE, FASTING 352 MG/DL (70-100); MAGNESIUM LEVEL 1.6 MG/DL (1.8-2.4); POTASSIUM SERUM 3.2 MEQ/L (3.5-5.1); SODIUM LEVEL 139 MEQ/L (136-145)
[2017-11-06 11:36] LABS: BEDSIDE GLUCOSE 414 MG/DL (70-105)
[2017-11-06 17:42] LABS: BEDSIDE GLUCOSE 385 MG/DL (70-105)
[2017-11-06] MEDS ORDERED: KCL 20MEQ IN 100ML SWI (KRUN) 20 MEQ in APPROPRIATE DILUENT 1 EA IV (17:45)
[2017-11-06] MEDS: METOCLOPRAMIDE INJ 10MG/2ML VIAL (J2765) IV (17:59)
[2017-11-06] MEDS: FAT EMULSION IV 20% 500 ML IV (18:19)
[2017-11-06] MEDS: CALC IV (18:19)
[2017-11-06] MEDS: ELECTROLYTE IV (18:19)
[2017-11-06] MEDS: DEX IV (18:19)
[2017-11-06] MEDS: AMINO AC IV (18:19)
[2017-11-06] MEDS: INSULIN HUMAN REGULAR IV (18:19)
[2017-11-06] MEDS: MAG SULF 1GM/100ML (MAG RUN) 1 GM in APPROPRIATE DILUENT 1 EA IV (18:20)
[2017-11-06] MEDS: KCL 10MEQ/100ML SWI (KRUN) 100 ML IV ×4 (19:37→23:33)
[2017-11-07] MEDS: HYDROmorphone HCL 2 MG/ML 1ML VIAL (J1170) IV ×7 (00:18→21:13)
[2017-11-07 00:26] LABS: BEDSIDE GLUCOSE 372 MG/DL (70-105)
[2017-11-07] MEDS: HumaLOG INSULIN (NovoLOG) PER UNIT SC ×4 (00:29→18:05)
[2017-11-07] MEDS: SODIUM CHLORIDE 0.9% INJ 10 ML SYR IV ×4 (04:17→17:57)
[2017-11-07 06:05] LABS: ANION GAP 9 MEQ/L (8-16); BLOOD UREA NITROGEN 12 MG/DL (7-18); CALCIUM LEVEL 9.7 MG/DL (8.5-10.1); CARBON DIOXIDE LEVEL 32 MEQ/L (21-32); CHLORIDE LEVEL 97 MEQ/L (98-107); GLOMERULAR FILTRATION RATE > 60.0 (>51); GLUCOSE, FASTING 327 MG/DL (70-100); MAGNESIUM LEVEL 1.9 MG/DL (1.8-2.4); POTASSIUM SERUM 3.5 MEQ/L (3.5-5.1); SODIUM LEVEL 138 MEQ/L (136-145)
[2017-11-07] MEDS: SYMBICORT 160/4.5MCG INHALER 6GM INH ×2 (07:35→21:08)
[2017-11-07] MEDS: ALVIMOPAN 12 MG CAPSULE (ENTEREG) PO ×2 (09:00→21:12)
[2017-11-07] MEDS: PANTOPRAZOLE 40MG INJ (PROTONIX) (C9113) IV (09:01)
[2017-11-07] MEDS: AZELASTINE 137MCG NASAL SPY 30 ML (ASTELIN) ×2 (09:01→21:12)
[2017-11-07] MEDS: LACTIC ACID 12% LOTION 225 GM BTL TOP ×2 (09:02→21:13)
[2017-11-07 12:10] LABS: BEDSIDE GLUCOSE 371 MG/DL (70-105)
[2017-11-07] MEDS: FAT EMULSION IV 20% 500 ML IV (17:56)
[2017-11-07] MEDS: [UNRECOGNIZED DRUG - MIXTURE] IV (17:57)
[2017-11-07 18:00] LABS: BEDSIDE GLUCOSE 332 MG/DL (70-105)
[2017-11-08 00:25] LABS: BEDSIDE GLUCOSE 332 MG/DL (70-105)
[2017-11-08] MEDS: HumaLOG INSULIN (NovoLOG) PER UNIT SC ×4 (00:28→18:25)
[2017-11-08] MEDS: HYDROmorphone HCL 2 MG/ML 1ML VIAL (J1170) IV ×8 (00:29→22:35)
[2017-11-08] MEDS: SODIUM CHLORIDE 0.9% INJ 10 ML SYR IV ×3 (05:17→17:50)
[2017-11-08 05:48] LABS: HEMATOCRIT 31.2 % (36.0-47.0); HEMOGLOBIN 10.1 g/dl (12.0-15.5); MEAN CORPUSCULAR HEMOGLOBIN 29.9 pg (27.0-33.0); MEAN CORPUSCULAR HGB CONC 32.4 g/dl (32.0-36.5); MEAN CORPUSCULAR VOLUME 92.3 fl (80.0-96.0); PLATELET COUNT, AUTOMATED 436 10^3/uL (150-450); RED BLOOD COUNT 3.38 10^6/uL (4.00-5.40); RED CELL DISTRIBUTION WIDTH 14.7 % (11.5-14.5); WHITE BLOOD COUNT 7.4 10^3/uL (4.0-10.0)
[2017-11-08 06:01] LABS: ANION GAP 8 MEQ/L (8-16); BLOOD UREA NITROGEN 15 MG/DL (7-18); CALCIUM LEVEL 9.7 MG/DL (8.5-10.1); CARBON DIOXIDE LEVEL 31 MEQ/L (21-32); CHLORIDE LEVEL 98 MEQ/L (98-107); CREATININE FOR GFR 0.54 MG/DL (0.55-1.30); GLOMERULAR FILTRATION RATE > 60.0 (>51); GLUCOSE, FASTING 313 MG/DL (70-100); MAGNESIUM LEVEL 1.9 MG/DL (1.8-2.4); POTASSIUM SERUM 3.9 MEQ/L (3.5-5.1); SODIUM LEVEL 137 MEQ/L (136-145)
[2017-11-08 06:20] LABS: BEDSIDE GLUCOSE 350 MG/DL (70-105)
[2017-11-08] MEDS: SYMBICORT 160/4.5MCG INHALER 6GM INH ×2 (08:31→20:38)
[2017-11-08] MEDS: AZELASTINE 137MCG NASAL SPY 30 ML (ASTELIN) ×2 (08:45→20:51)
[2017-11-08] MEDS: ALVIMOPAN 12 MG CAPSULE (ENTEREG) PO ×2 (08:45→20:51)
[2017-11-08] MEDS: PANTOPRAZOLE 40MG INJ (PROTONIX) (C9113) IV (08:45)
[2017-11-08] MEDS: LACTIC ACID 12% LOTION 225 GM BTL TOP ×2 (08:46→20:52)
[2017-11-08 12:31] LABS: BEDSIDE GLUCOSE 335 MG/DL (70-105)
[2017-11-08 17:58] LABS: BEDSIDE GLUCOSE 289 MG/DL (70-105)
[2017-11-08] MEDS: FAT EMULSION IV 20% 500 ML IV (18:10)
[2017-11-08] MEDS: ELECTROLYTE IV (18:11)
[2017-11-08] MEDS: AMINO AC IV (18:11)
[2017-11-08] MEDS: DEX IV (18:11)
[2017-11-08] MEDS: INSULIN HUMAN REGULAR IV (18:11)
[2017-11-08] MEDS: CALC IV (18:11)
[2017-11-09] LABS: BEDSIDE GLUCOSE 290 MG/DL (70-105)
[2017-11-09] MEDS: HumaLOG INSULIN (NovoLOG) PER UNIT SC ×5 (00:03→23:59)
[2017-11-09] MEDS: HYDROmorphone HCL 2 MG/ML 1ML VIAL (J1170) IV ×8 (01:36→23:32)
[2017-11-09 05:51] LABS: BEDSIDE GLUCOSE 293 MG/DL (70-105)
[2017-11-09] MEDS: SODIUM CHLORIDE 0.9% INJ 10 ML SYR IV ×2 (06:00→17:27)
[2017-11-09] MEDS: SYMBICORT 160/4.5MCG INHALER 6GM INH ×2 (07:15→20:39)
[2017-11-09] MEDS: AZELASTINE 137MCG NASAL SPY 30 ML (ASTELIN) ×2 (10:09→20:27)
[2017-11-09] MEDS: ALVIMOPAN 12 MG CAPSULE (ENTEREG) PO ×2 (10:09→20:27)
[2017-11-09] MEDS: LACTIC ACID 12% LOTION 225 GM BTL TOP ×2 (10:09→20:27)
[2017-11-09] MEDS: PANTOPRAZOLE 40MG INJ (PROTONIX) (C9113) IV (10:09)
[2017-11-09 12:07] LABS: BEDSIDE GLUCOSE 314 MG/DL (70-105)
[2017-11-09] MEDS: CALC IV (17:27)
[2017-11-09] MEDS: ELECTROLYTE IV (17:27)
[2017-11-09] MEDS: DEX IV (17:27)
[2017-11-09] MEDS: INSULIN HUMAN REGULAR IV (17:27)
[2017-11-09] MEDS: FAT EMULSION IV 20% 500 ML IV (17:27)
[2017-11-09] MEDS: AMINO AC IV (17:27)
[2017-11-09 17:38] LABS: BEDSIDE GLUCOSE 307 MG/DL (70-105)
[2017-11-09 23:54] LABS: BEDSIDE GLUCOSE 288 MG/DL (70-105)
[2017-11-10] MEDS: HYDROmorphone HCL 2 MG/ML 1ML VIAL (J1170) IV ×6 (02:34→23:48)
[2017-11-10] MEDS: SODIUM CHLORIDE 0.9% INJ 10 ML SYR IV ×4 (05:12→23:49)
[2017-11-10 05:20] LABS: BASO # 0.1 10^3/uL (0.0-0.2); BASO % 0.8 % (0.0-1.0); EOS # 0.2 10^3/uL (0.0-0.50); HEMATOCRIT 33.9 % (36.0-47.0); HEMOGLOBIN 10.9 g/dl (12.0-15.5); IMMATURE GRANULOCYTE % 1.1 % (0-3.0); LYMPH # 1.4 10^3/uL (1.5-4.5); LYMPH % 14.7 % (24.0-44.0); MEAN CORPUSCULAR HEMOGLOBIN 29.9 pg (27.0-33.0); MEAN CORPUSCULAR HGB CONC 32.2 g/dl (32.0-36.5); MEAN CORPUSCULAR VOLUME 92.9 fl (80.0-96.0); MONO # 1.3 10^3/uL (0.0-0.8); MONO % 13.4 % (0.0-5.0); NEUTROPHILS # 6.6 10^3/uL (1.8-7.7); PLATELET COUNT, AUTOMATED 462 10^3/uL (150-450); RED BLOOD COUNT 3.65 10^6/uL (4.00-5.40); RED CELL DISTRIBUTION WIDTH 15.1 % (11.5-14.5); WHITE BLOOD COUNT 9.8 10^3/uL (4.0-10.0)
[2017-11-10 05:35] LABS: ANION GAP 9 MEQ/L (8-16); BLOOD UREA NITROGEN 17 MG/DL (7-18); CARBON DIOXIDE LEVEL 27 MEQ/L (21-32); CHLORIDE LEVEL 100 MEQ/L (98-107); CREATININE FOR GFR 0.57 MG/DL (0.55-1.30); GLOMERULAR FILTRATION RATE > 60.0 (>51); GLUCOSE, FASTING 269 MG/DL (70-100); MAGNESIUM LEVEL 1.9 MG/DL (1.8-2.4); POTASSIUM SERUM 4.5 MEQ/L (3.5-5.1); SODIUM LEVEL 136 MEQ/L (136-145)
[2017-11-10 05:49] LABS: BEDSIDE GLUCOSE 279 MG/DL (70-105)
[2017-11-10] MEDS: HumaLOG INSULIN (NovoLOG) PER UNIT SC ×4 (05:56→23:48)
[2017-11-10] MEDS: SYMBICORT 160/4.5MCG INHALER 6GM INH ×2 (07:39→19:45)
[2017-11-10] MEDS: PANTOPRAZOLE 40MG INJ (PROTONIX) (C9113) IV (09:13)
[2017-11-10] MEDS: ALVIMOPAN 12 MG CAPSULE (ENTEREG) PO ×2 (09:13→20:38)
[2017-11-10] MEDS: AZELASTINE 137MCG NASAL SPY 30 ML (ASTELIN) ×2 (09:14→20:38)
[2017-11-10] MEDS: LACTIC ACID 12% LOTION 225 GM BTL TOP ×2 (09:14→20:38)
[2017-11-10 11:37] LABS: BEDSIDE GLUCOSE 309 MG/DL (70-105)
[2017-11-10] MEDS: HYDROmorphone (DILAUDID) 4 MG TAB PO (12:46)
[2017-11-10 17:41] LABS: BEDSIDE GLUCOSE 276 MG/DL (70-105)
[2017-11-10] MEDS: FAT EMULSION IV 20% 500 ML IV (18:00)
[2017-11-10] MEDS: [UNRECOGNIZED DRUG - MIXTURE] IV (18:01)
[2017-11-10 23:45] LABS: BEDSIDE GLUCOSE 326 MG/DL (70-105)
[2017-11-11] MEDS: SODIUM CHLORIDE 0.9% INJ 10 ML SYR IV ×6 (02:47→22:05)
[2017-11-11] MEDS: HYDROmorphone HCL 2 MG/ML 1ML VIAL (J1170) IV ×7 (02:48→22:05)
[2017-11-11 05:37] LABS: HEMATOCRIT 33.3 % (36.0-47.0); HEMOGLOBIN 10.7 g/dl (12.0-15.5); MEAN CORPUSCULAR HEMOGLOBIN 30.1 pg (27.0-33.0); MEAN CORPUSCULAR HGB CONC 32.1 g/dl (32.0-36.5); MEAN CORPUSCULAR VOLUME 93.5 fl (80.0-96.0); PLATELET COUNT, AUTOMATED 452 10^3/uL (150-450); RED BLOOD COUNT 3.56 10^6/uL (4.00-5.40); RED CELL DISTRIBUTION WIDTH 14.8 % (11.5-14.5); WHITE BLOOD COUNT 8.6 10^3/uL (4.0-10.0)
[2017-11-11 05:59] LABS: ANION GAP 9 MEQ/L (8-16); BLOOD UREA NITROGEN 16 MG/DL (7-18); CALCIUM LEVEL 10.1 MG/DL (8.5-10.1); CARBON DIOXIDE LEVEL 28 MEQ/L (21-32); CHLORIDE LEVEL 98 MEQ/L (98-107); CREATININE FOR GFR 0.58 MG/DL (0.55-1.30); GLOMERULAR FILTRATION RATE > 60.0 (>51); GLUCOSE, FASTING 290 MG/DL (70-100); MAGNESIUM LEVEL 1.7 MG/DL (1.8-2.4); POTASSIUM SERUM 4.5 MEQ/L (3.5-5.1); SODIUM LEVEL 135 MEQ/L (136-145)
[2017-11-11 06:03] LABS: BEDSIDE GLUCOSE 309 MG/DL (70-105)
[2017-11-11] MEDS: HumaLOG INSULIN (NovoLOG) PER UNIT SC ×4 (06:10→20:56)
[2017-11-11] MEDS: SYMBICORT 160/4.5MCG INHALER 6GM INH ×2 (08:33→19:56)
[2017-11-11] MEDS: ALVIMOPAN 12 MG CAPSULE (ENTEREG) PO ×2 (08:55→21:29)
[2017-11-11] MEDS: AZELASTINE 137MCG NASAL SPY 30 ML (ASTELIN) ×2 (08:58→21:29)
[2017-11-11] MEDS: LACTIC ACID 12% LOTION 225 GM BTL TOP ×2 (08:58→21:29)
[2017-11-11] MEDS: PANTOPRAZOLE 40MG INJ (PROTONIX) (C9113) IV (11:07)
[2017-11-11 11:32] LABS: BEDSIDE GLUCOSE 291 MG/DL (70-105)
[2017-11-11 17:21] LABS: BEDSIDE GLUCOSE 295 MG/DL (70-105)
[2017-11-11 19:48] LABS: BEDSIDE GLUCOSE 225 MG/DL (70-105)
[2017-11-12] MEDS: ONDANSETRON 4MG/2ML VIAL (J2405) IV (00:18)
[2017-11-12] MEDS: SODIUM CHLORIDE 0.9% INJ 10 ML SYR IV ×5 (00:18→20:41)
[2017-11-12] MEDS: HYDROmorphone HCL 2 MG/ML 1ML VIAL (J1170) IV ×5 (01:08→20:44)
[2017-11-12 05:45] LABS: HEMATOCRIT 33.1 % (36.0-47.0); HEMOGLOBIN 10.4 g/dl (12.0-15.5); MEAN CORPUSCULAR HEMOGLOBIN 29.3 pg (27.0-33.0); MEAN CORPUSCULAR HGB CONC 31.4 g/dl (32.0-36.5); MEAN CORPUSCULAR VOLUME 93.2 fl (80.0-96.0); PLATELET COUNT, AUTOMATED 423 10^3/uL (150-450); RED BLOOD COUNT 3.55 10^6/uL (4.00-5.40); RED CELL DISTRIBUTION WIDTH 14.7 % (11.5-14.5); WHITE BLOOD COUNT 8.6 10^3/uL (4.0-10.0)
[2017-11-12 05:51] LABS: ANION GAP 9 MEQ/L (8-16); BLOOD UREA NITROGEN 21 MG/DL (7-18); CALCIUM LEVEL 9.9 MG/DL (8.5-10.1); CARBON DIOXIDE LEVEL 27 MEQ/L (21-32); CHLORIDE LEVEL 99 MEQ/L (98-107); GLOMERULAR FILTRATION RATE > 60.0 (>51); GLUCOSE, FASTING 310 MG/DL (70-100); MAGNESIUM LEVEL 1.5 MG/DL (1.8-2.4); POTASSIUM SERUM 4.5 MEQ/L (3.5-5.1); SODIUM LEVEL 135 MEQ/L (136-145)
[2017-11-12] MEDS: HumaLOG INSULIN (NovoLOG) PER UNIT SC ×4 (08:01→20:47)
[2017-11-12] MEDS: AZELASTINE 137MCG NASAL SPY 30 ML (ASTELIN) ×2 (08:01→20:49)
[2017-11-12] MEDS: LACTIC ACID 12% LOTION 225 GM BTL TOP ×2 (08:01→20:50)
[2017-11-12] MEDS: PANTOPRAZOLE 40MG INJ (PROTONIX) (C9113) IV (08:01)
[2017-11-12] MEDS: SYMBICORT 160/4.5MCG INHALER 6GM INH ×2 (08:10→21:30)
[2017-11-12] MEDS: METHYLNALTREXONE BROMIDE 12 MG/0.6 ML VIAL (RELISTOR) SC (11:03)
[2017-11-12] MEDS: MAG SULF 1GM/100ML (MAG RUN) 1 GM in APPROPRIATE DILUENT 1 EA IV (11:04)
[2017-11-12 11:32] LABS: BEDSIDE GLUCOSE 247 MG/DL (70-105)
[2017-11-12 15:26] LABS: MAGNESIUM LEVEL 2.1 MG/DL (1.8-2.4)
[2017-11-12] MEDS: KETOROLAC 30 MG/ML VIAL (J1885) IV (17:09)
[2017-11-12 17:26] LABS: BEDSIDE GLUCOSE 221 MG/DL (70-105)
[2017-11-12] MEDS: HYDROmorphone (DILAUDID) 4 MG TAB PO ×2 (18:28→23:06)
[2017-11-12 20:41] LABS: BEDSIDE GLUCOSE 198 MG/DL (70-105)
[2017-11-13] MEDS: KETOROLAC 30 MG/ML VIAL (J1885) IV (00:58)
[2017-11-13] MEDS: SODIUM CHLORIDE 0.9% INJ 10 ML SYR IV ×2 (01:05→17:20)
[2017-11-13] MEDS: HYDROmorphone HCL 2 MG/ML 1ML VIAL (J1170) IV ×2 (05:20→20:19)
[2017-11-13 05:51] LABS: HEMATOCRIT 31.9 % (36.0-47.0); HEMOGLOBIN 10.2 g/dl (12.0-15.5); MEAN CORPUSCULAR HEMOGLOBIN 29.2 pg (27.0-33.0); MEAN CORPUSCULAR VOLUME 91.4 fl (80.0-96.0); PLATELET COUNT, AUTOMATED 399 10^3/uL (150-450); RED BLOOD COUNT 3.49 10^6/uL (4.00-5.40); RED CELL DISTRIBUTION WIDTH 14.7 % (11.5-14.5); WHITE BLOOD COUNT 7.6 10^3/uL (4.0-10.0)
[2017-11-13 06:21] LABS: ANION GAP 10 MEQ/L (8-16); BLOOD UREA NITROGEN 14 MG/DL (7-18); CALCIUM LEVEL 10.3 MG/DL (8.5-10.1); CARBON DIOXIDE LEVEL 27 MEQ/L (21-32); CHLORIDE LEVEL 100 MEQ/L (98-107); CREATININE FOR GFR 0.63 MG/DL (0.55-1.30); GLOMERULAR FILTRATION RATE > 60.0 (>51); GLUCOSE, FASTING 228 MG/DL (70-100); MAGNESIUM LEVEL 1.9 MG/DL (1.8-2.4); POTASSIUM SERUM 4.4 MEQ/L (3.5-5.1); SODIUM LEVEL 137 MEQ/L (136-145)
[2017-11-13] MEDS: HYDROmorphone (DILAUDID) 4 MG TAB PO ×3 (06:57→15:34)
[2017-11-13] MEDS: HumaLOG INSULIN (NovoLOG) PER UNIT SC ×4 (08:09→21:00)
[2017-11-13] MEDS: PANTOPRAZOLE 40MG INJ (PROTONIX) (C9113) IV (08:09)
[2017-11-13] MEDS: AZELASTINE 137MCG NASAL SPY 30 ML (ASTELIN) ×2 (08:10→20:18)
[2017-11-13] MEDS: METHYLNALTREXONE BROMIDE 12 MG/0.6 ML VIAL (RELISTOR) SC (08:10)
[2017-11-13] MEDS: LACTIC ACID 12% LOTION 225 GM BTL TOP ×2 (08:10→20:18)
[2017-11-13] MEDS: SYMBICORT 160/4.5MCG INHALER 6GM INH ×2 (09:23→20:22)
[2017-11-13] MEDS: READI-CAT 2 PO ×2 (09:30→10:30)
[2017-11-13 13:11] LABS: BEDSIDE GLUCOSE 265 MG/DL (70-105)
[2017-11-13 17:13] LABS: BEDSIDE GLUCOSE 278 MG/DL (70-105)
[2017-11-13 20:19] LABS: BEDSIDE GLUCOSE 195 MG/DL (70-105)
[2017-11-14] MEDS: HYDROmorphone (DILAUDID) 4 MG TAB PO ×4 (02:05→21:03)
[2017-11-14] MEDS: SODIUM CHLORIDE 0.9% INJ 10 ML SYR IV ×3 (05:04→23:57)
[2017-11-14 05:23] LABS: HEMATOCRIT 32.4 % (36.0-47.0); HEMOGLOBIN 10.4 g/dl (12.0-15.5); MEAN CORPUSCULAR HEMOGLOBIN 29.5 pg (27.0-33.0); MEAN CORPUSCULAR HGB CONC 32.1 g/dl (32.0-36.5); PLATELET COUNT, AUTOMATED 383 10^3/uL (150-450); RED BLOOD COUNT 3.52 10^6/uL (4.00-5.40); RED CELL DISTRIBUTION WIDTH 14.6 % (11.5-14.5); WHITE BLOOD COUNT 7.6 10^3/uL (4.0-10.0)
[2017-11-14 05:47] LABS: ANION GAP 10 MEQ/L (8-16); BLOOD UREA NITROGEN 11 MG/DL (7-18); CALCIUM LEVEL 9.9 MG/DL (8.5-10.1); CARBON DIOXIDE LEVEL 26 MEQ/L (21-32); CHLORIDE LEVEL 103 MEQ/L (98-107); CREATININE FOR GFR 0.61 MG/DL (0.55-1.30); GLOMERULAR FILTRATION RATE > 60.0 (>51); GLUCOSE, FASTING 227 MG/DL (70-100); MAGNESIUM LEVEL 1.7 MG/DL (1.8-2.4); POTASSIUM SERUM 4.1 MEQ/L (3.5-5.1); SODIUM LEVEL 139 MEQ/L (136-145)
[2017-11-14] MEDS: SYMBICORT 160/4.5MCG INHALER 6GM INH ×2 (07:21→20:27)
[2017-11-14] MEDS: HumaLOG INSULIN (NovoLOG) PER UNIT SC ×4 (08:56→21:01)
[2017-11-14] MEDS: AZELASTINE 137MCG NASAL SPY 30 ML (ASTELIN) ×2 (08:57→21:02)
[2017-11-14] MEDS: METHYLNALTREXONE BROMIDE 12 MG/0.6 ML VIAL (RELISTOR) SC (08:57)
[2017-11-14] MEDS: PANTOPRAZOLE 40MG INJ (PROTONIX) (C9113) IV (08:57)
[2017-11-14] MEDS: LACTIC ACID 12% LOTION 225 GM BTL TOP ×2 (08:58→21:03)
[2017-11-14] MEDS: KETOROLAC 30 MG/ML VIAL (J1885) IV (09:00)
[2017-11-14] MEDS: MIRALAX *UNIT DOSE* 17GM PACKET PO ×2 (10:54→21:01)
[2017-11-14] MEDS: HYDROmorphone HCL 2 MG/ML 1ML VIAL (J1170) IV ×3 (11:53→23:57)
[2017-11-14] MEDS: MAG SULF 1GM/100ML (MAG RUN) 1 GM in APPROPRIATE DILUENT 1 EA IV (11:53)
[2017-11-14 12:02] LABS: BEDSIDE GLUCOSE 329 MG/DL (70-105)
[2017-11-14 17:00] LABS: BEDSIDE GLUCOSE 334 MG/DL (70-105)
[2017-11-14 20:07] LABS: BEDSIDE GLUCOSE 270 MG/DL (70-105)
[2017-11-15] MEDS: KETOROLAC 30 MG/ML VIAL (J1885) IV ×2 (02:47→20:19)
[2017-11-15] MEDS: SODIUM CHLORIDE 0.9% INJ 10 ML SYR IV ×6 (02:47→21:27)
[2017-11-15] MEDS: HYDROmorphone (DILAUDID) 4 MG TAB PO ×4 (05:46→23:45)
[2017-11-15 06:09] LABS: HEMATOCRIT 32.5 % (36.0-47.0); HEMOGLOBIN 10.2 g/dl (12.0-15.5); MEAN CORPUSCULAR HEMOGLOBIN 29.1 pg (27.0-33.0); MEAN CORPUSCULAR HGB CONC 31.4 g/dl (32.0-36.5); MEAN CORPUSCULAR VOLUME 92.9 fl (80.0-96.0); PLATELET COUNT, AUTOMATED 373 10^3/uL (150-450); RED CELL DISTRIBUTION WIDTH 14.7 % (11.5-14.5); WHITE BLOOD COUNT 7.7 10^3/uL (4.0-10.0)
[2017-11-15 06:16] LABS: ANION GAP 9 MEQ/L (8-16); BLOOD UREA NITROGEN 13 MG/DL (7-18); CALCIUM LEVEL 9.9 MG/DL (8.5-10.1); CARBON DIOXIDE LEVEL 26 MEQ/L (21-32); CHLORIDE LEVEL 103 MEQ/L (98-107); CREATININE FOR GFR 0.71 MG/DL (0.55-1.30); GLOMERULAR FILTRATION RATE > 60.0 (>51); GLUCOSE, FASTING 209 MG/DL (70-100); MAGNESIUM LEVEL 1.9 MG/DL (1.8-2.4); POTASSIUM SERUM 4.4 MEQ/L (3.5-5.1); SODIUM LEVEL 138 MEQ/L (136-145)
[2017-11-15] MEDS: SYMBICORT 160/4.5MCG INHALER 6GM INH (07:10)
[2017-11-15] MEDS: HumaLOG INSULIN (NovoLOG) PER UNIT SC ×4 (08:12→20:06)
[2017-11-15] MEDS: HYDROmorphone HCL 2 MG/ML 1ML VIAL (J1170) IV ×3 (08:13→21:27)
[2017-11-15] MEDS: PANTOPRAZOLE 40MG INJ (PROTONIX) (C9113) IV (09:40)
[2017-11-15] MEDS: METHYLNALTREXONE BROMIDE 12 MG/0.6 ML VIAL (RELISTOR) SC (09:41)
[2017-11-15] MEDS: MIRALAX *UNIT DOSE* 17GM PACKET PO ×2 (09:42→20:11)
[2017-11-15] MEDS: AZELASTINE 137MCG NASAL SPY 30 ML (ASTELIN) ×2 (09:42→20:11)
[2017-11-15] MEDS: LACTIC ACID 12% LOTION 225 GM BTL TOP ×2 (09:43→20:11)
[2017-11-15 11:38] LABS: BEDSIDE GLUCOSE 265 MG/DL (70-105)
[2017-11-15 16:57] LABS: BEDSIDE GLUCOSE 215 MG/DL (70-105)
[2017-11-15 20:02] LABS: BEDSIDE GLUCOSE 159 MG/DL (70-105)
[2017-11-16] MEDS: ONDANSETRON 4MG/2ML VIAL (J2405) IV (00:45)
[2017-11-16] MEDS: SODIUM CHLORIDE 0.9% INJ 10 ML SYR IV ×4 (00:46→14:51)
[2017-11-16] MEDS: SYMBICORT 160/4.5MCG INHALER 6GM INH ×3 (01:06→22:25)
[2017-11-16] MEDS: HYDROmorphone HCL 2 MG/ML 1ML VIAL (J1170) IV ×3 (03:43→21:02)
[2017-11-16 05:58] LABS: ANION GAP 8 MEQ/L (8-16); BLOOD UREA NITROGEN 15 MG/DL (7-18); CALCIUM LEVEL 9.6 MG/DL (8.5-10.1); CARBON DIOXIDE LEVEL 26 MEQ/L (21-32); CHLORIDE LEVEL 104 MEQ/L (98-107); CREATININE FOR GFR 0.63 MG/DL (0.55-1.30); GLOMERULAR FILTRATION RATE > 60.0 (>51); GLUCOSE, FASTING 200 MG/DL (70-100); MAGNESIUM LEVEL 1.9 MG/DL (1.8-2.4); POTASSIUM SERUM 4.6 MEQ/L (3.5-5.1); SODIUM LEVEL 138 MEQ/L (136-145)
[2017-11-16] MEDS: HYDROmorphone (DILAUDID) 4 MG TAB PO ×3 (07:45→18:19)
[2017-11-16] MEDS: HumaLOG INSULIN (NovoLOG) PER UNIT SC ×4 (07:45→21:02)
[2017-11-16] MEDS: PANTOPRAZOLE 40MG INJ (PROTONIX) (C9113) IV (09:54)
[2017-11-16] MEDS: METHYLNALTREXONE BROMIDE 12 MG/0.6 ML VIAL (RELISTOR) SC (09:54)
[2017-11-16] MEDS: MIRALAX *UNIT DOSE* 17GM PACKET PO ×2 (09:55→21:01)
[2017-11-16] MEDS: LEVEMIR (INSULIN DETEMIR) 1 UNITS/0.01ML SC (09:55)
[2017-11-16] MEDS: LACTIC ACID 12% LOTION 225 GM BTL TOP ×2 (09:56→21:03)
[2017-11-16] MEDS: AZELASTINE 137MCG NASAL SPY 30 ML (ASTELIN) ×2 (09:56→21:02)
[2017-11-16 11:39] LABS: BEDSIDE GLUCOSE 208 MG/DL (70-105)
[2017-11-16 17:51] LABS: BEDSIDE GLUCOSE 182 MG/DL (70-105)
[2017-11-16 20:07] LABS: BEDSIDE GLUCOSE 217 MG/DL (70-105)
[2017-11-17] MEDS: HYDROmorphone (DILAUDID) 4 MG TAB PO ×4 (00:33→17:11)
[2017-11-17] MEDS: KETOROLAC 30 MG/ML VIAL (J1885) IV (04:08)
[2017-11-17] MEDS: SODIUM CHLORIDE 0.9% INJ 10 ML SYR IV ×2 (05:16→18:56)
[2017-11-17] MEDS: HYDROmorphone HCL 2 MG/ML 1ML VIAL (J1170) IV ×2 (05:22→21:25)
[2017-11-17 05:58] LABS: ANION GAP 7 MEQ/L (8-16); BLOOD UREA NITROGEN 11 MG/DL (7-18); CALCIUM LEVEL 9.7 MG/DL (8.5-10.1); CARBON DIOXIDE LEVEL 28 MEQ/L (21-32); CHLORIDE LEVEL 105 MEQ/L (98-107); CREATININE FOR GFR 0.54 MG/DL (0.55-1.30); GLOMERULAR FILTRATION RATE > 60.0 (>51); GLUCOSE, FASTING 157 MG/DL (70-100); MAGNESIUM LEVEL 1.7 MG/DL (1.8-2.4); POTASSIUM SERUM 4.1 MEQ/L (3.5-5.1); SODIUM LEVEL 140 MEQ/L (136-145)
[2017-11-17] MEDS: SYMBICORT 160/4.5MCG INHALER 6GM INH ×2 (07:16→20:23)
[2017-11-17] MEDS: METHYLNALTREXONE BROMIDE 12 MG/0.6 ML VIAL (RELISTOR) SC (09:00)
[2017-11-17] MEDS: LEVEMIR (INSULIN DETEMIR) 1 UNITS/0.01ML SC (09:01)
[2017-11-17] MEDS: HumaLOG INSULIN (NovoLOG) PER UNIT SC ×4 (09:02→21:26)
[2017-11-17] MEDS: AZELASTINE 137MCG NASAL SPY 30 ML (ASTELIN) ×2 (09:03→21:27)
[2017-11-17] MEDS: PANTOPRAZOLE 40MG INJ (PROTONIX) (C9113) IV (09:03)
[2017-11-17] MEDS: MIRALAX *UNIT DOSE* 17GM PACKET PO ×2 (09:08→21:26)
[2017-11-17] MEDS: LACTIC ACID 12% LOTION 225 GM BTL TOP ×2 (09:09→21:26)
[2017-11-17] MEDS: AMITRIPTYLINE 50 MG TAB PO (10:43)
[2017-11-17] MEDS: MAG SULF 1GM/100ML (MAG RUN) 1 GM in APPROPRIATE DILUENT 1 EA IV ×2 (10:44→12:07)
[2017-11-17 12:14] LABS: BEDSIDE GLUCOSE 180 MG/DL (70-105)
[2017-11-17 17:06] LABS: BEDSIDE GLUCOSE 277 MG/DL (70-105)
[2017-11-17 20:51] LABS: BEDSIDE GLUCOSE 170 MG/DL (70-105)
[2017-11-17] MEDS: AMITRIPTYLINE 25 MG TAB PO (21:26)
[2017-11-18] MEDS: HYDROmorphone (DILAUDID) 4 MG TAB PO ×4 (03:04→21:37)
[2017-11-18] MEDS: SODIUM CHLORIDE 0.9% INJ 10 ML SYR IV ×2 (05:25→17:08)
[2017-11-18 06:40] LABS: BEDSIDE GLUCOSE 162 MG/DL (70-105)
[2017-11-18] MEDS: HYDROmorphone HCL 2 MG/ML 1ML VIAL (J1170) IV (06:56)
[2017-11-18] MEDS: SYMBICORT 160/4.5MCG INHALER 6GM INH ×2 (07:11→20:11)
[2017-11-18] MEDS: MIRALAX *UNIT DOSE* 17GM PACKET PO ×2 (08:00→21:36)
[2017-11-18] MEDS: AMITRIPTYLINE 50 MG TAB PO (08:00)
[2017-11-18] MEDS: PANTOPRAZOLE 40MG TAB (PROTONIX) PO (08:00)
[2017-11-18] MEDS: METHYLNALTREXONE BROMIDE 12 MG/0.6 ML VIAL (RELISTOR) SC (08:01)
[2017-11-18] MEDS: HumaLOG INSULIN (NovoLOG) PER UNIT SC ×4 (08:02→21:37)
[2017-11-18] MEDS: AZELASTINE 137MCG NASAL SPY 30 ML (ASTELIN) ×2 (08:08→21:37)
[2017-11-18] MEDS: LACTIC ACID 12% LOTION 225 GM BTL TOP ×2 (08:13→21:37)
[2017-11-18] MEDS: LEVEMIR (INSULIN DETEMIR) 1 UNITS/0.01ML SC (08:15)
[2017-11-18 11:31] LABS: BEDSIDE GLUCOSE 188 MG/DL (70-105)
[2017-11-18 17:00] LABS: BEDSIDE GLUCOSE 273 MG/DL (70-105)
[2017-11-18 20:15] LABS: BEDSIDE GLUCOSE 185 MG/DL (70-105)
[2017-11-18] MEDS: AMITRIPTYLINE 25 MG TAB PO (21:36)
[2017-11-19] MEDS: HYDROmorphone (DILAUDID) 4 MG TAB PO ×3 (03:48→12:28)
[2017-11-19] MEDS: SODIUM CHLORIDE 0.9% INJ 10 ML SYR IV (05:28)
[2017-11-19 06:48] LABS: BEDSIDE GLUCOSE 156 MG/DL (70-105)
[2017-11-19] MEDS: SYMBICORT 160/4.5MCG INHALER 6GM INH (07:40)
[2017-11-19] MEDS: HumaLOG INSULIN (NovoLOG) PER UNIT SC ×2 (07:52→12:29)
[2017-11-19] MEDS: METHYLNALTREXONE BROMIDE 12 MG/0.6 ML VIAL (RELISTOR) SC (09:20)
[2017-11-19] MEDS: PANTOPRAZOLE 40MG TAB (PROTONIX) PO (09:21)
[2017-11-19] MEDS: LEVEMIR (INSULIN DETEMIR) 1 UNITS/0.01ML SC (09:21)
[2017-11-19] MEDS: AMITRIPTYLINE 50 MG TAB PO (09:21)
[2017-11-19] MEDS: MIRALAX *UNIT DOSE* 17GM PACKET PO (09:21)
[2017-11-19] MEDS: LACTIC ACID 12% LOTION 225 GM BTL TOP (09:22)
[2017-11-19] MEDS: AZELASTINE 137MCG NASAL SPY 30 ML (ASTELIN) (09:22)
[2017-11-19 11:48] LABS: BEDSIDE GLUCOSE 165 MG/DL (70-105)
== END 2017-11-19 14:30 | disposition home or self-care (01) | DRG 221 ==
LOC: M OR 05:59 → M MSPAV 11-01 16:12 → M PCU 13:52
PROVIDERS: Surgery
PROC: 0WQF0ZZ Repair Abdominal Wall, Open Approach (ICD-10-PCS; principal; 2017-10-28 07:30)
PROC: 0D1K0Z4 Bypass Ascending Colon to Cutaneous, Open Approach (ICD-10-PCS; 2017-10-28 07:30)
PROC: 0DN80ZZ Release Small Intestine, Open Approach (ICD-10-PCS; 2017-10-28 07:30)
DX: K43.3 Parastomal hernia with obstruction, without gangrene (principal); G90.522 Complex regional pain syndrome I of left lower limb; K91.2 Postsurgical malabsorption, not elsewhere classified; E83.42 Hypomagnesemia; E11.40 Type 2 diabetes mellitus with diabetic neuropathy, unspecified; K43.2 Incisional hernia without obstruction or gangrene; E87.6 Hypokalemia; K64.8 Other hemorrhoids; M79.7 Fibromyalgia; K21.9 Gastro-esophageal reflux disease without esophagitis; E78.5 Hyperlipidemia, unspecified; D64.9 Anemia, unspecified; J45.909 Unspecified asthma, uncomplicated; Z79.899 Other long term (current) drug therapy; Z88.0 Allergy status to penicillin; Z88.5 Allergy status to narcotic agent; Z88.2 Allergy status to sulfonamides; Z88.8 Allergy status to other drugs, medicaments and biological substances; Z91.018 Allergy to other foods; Z88.6 Allergy status to analgesic agent; L71.9 Rosacea, unspecified; K91.89 Other postprocedural complications and disorders of digestive system

== ENCOUNTER 2017-11-21 08:24 | Outpatient (CLI) | payer OTHER ==
[2017-11-21 09:13] LABS: MAGNESIUM LEVEL 1.7 MG/DL (1.8-2.4)
[2017-11-21] MEDS ORDERED: ALTEPLASE 2 MG/2 ML VIAL (J2997 PER 1MG) XX (09:30)
[2017-11-21] MEDS: ALTEPLASE 2 MG/2 ML VIAL (J2997 PER 1MG) XX (09:53)
[2017-11-21] MEDS: SODIUM CHLORIDE 0.9% INJ 10 ML SYR IV (11:10)
[2017-11-21] MEDS: MAG SULF 1GM/100ML (MAG RUN) SINGLE DOSE IV (11:10)
== END 2017-11-21 15:30 | disposition home or self-care (01) ==
LOC: M INFU 08:24
DX: E83.42 Hypomagnesemia (principal); Z88.1 Allergy status to other antibiotic agents; Z88.8 Allergy status to other drugs, medicaments and biological substances; Z88.5 Allergy status to narcotic agent; Z88.0 Allergy status to penicillin; Z88.2 Allergy status to sulfonamides; Z88.3 Allergy status to other anti-infective agents; Z91.02 Food additives allergy status; Z91.040 Latex allergy status; Z91.018 Allergy to other foods; Z91.048 Other nonmedicinal substance allergy status; Z79.4 Long term (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; Z79.899 Other long term (current) drug therapy; Z79.891 Long term (current) use of opiate analgesic
CPT/HCPCS: 36593

== ENCOUNTER 2017-12-05 12:42 | Outpatient (CLI) | payer OTHER ==
[2017-12-05] MEDS: MAG SULF 1GM/100ML (MAG RUN) X 2 DOSES (2GM TOTAL) IV ×2 (13:42→14:45)
[2017-12-05] MEDS: SODIUM CHLORIDE 0.9% INJ 10 ML SYR IV (15:42)
== END 2017-12-05 15:45 | disposition home or self-care (01) ==
LOC: M INFU 12:42
DX: E83.42 Hypomagnesemia (principal); Z88.8 Allergy status to other drugs, medicaments and biological substances; Z88.1 Allergy status to other antibiotic agents; Z88.5 Allergy status to narcotic agent; Z88.0 Allergy status to penicillin; Z88.2 Allergy status to sulfonamides; Z88.3 Allergy status to other anti-infective agents; Z91.02 Food additives allergy status; Z91.040 Latex allergy status; Z91.048 Other nonmedicinal substance allergy status; Z91.018 Allergy to other foods; Z79.4 Long term (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; Z79.899 Other long term (current) drug therapy; Z79.891 Long term (current) use of opiate analgesic
CPT/HCPCS: J3475

== ENCOUNTER 2017-12-10 06:24 | Outpatient (CLI) | payer OTHER ==
[2017-12-10] MEDS: SODIUM CHLORIDE 0.9% INJ 10 ML SYR IV (06:58)
[2017-12-10 07:28] LABS: MAGNESIUM LEVEL 2.1 MG/DL (1.8-2.4)
== END 2017-12-10 07:05 | disposition home or self-care (01) ==
LOC: M INFU 06:24
DX: E83.42 Hypomagnesemia (principal); Z88.8 Allergy status to other drugs, medicaments and biological substances; Z88.1 Allergy status to other antibiotic agents; Z88.5 Allergy status to narcotic agent; Z88.0 Allergy status to penicillin; Z88.2 Allergy status to sulfonamides; Z88.3 Allergy status to other anti-infective agents; Z91.048 Other nonmedicinal substance allergy status; Z91.02 Food additives allergy status; Z91.018 Allergy to other foods; Z91.040 Latex allergy status; Z79.4 Long term (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; Z79.891 Long term (current) use of opiate analgesic; Z79.899 Other long term (current) drug therapy
CPT/HCPCS: 36591

== ENCOUNTER 2017-12-12 10:31 | Outpatient (CLI) | payer OTHER ==
[2017-12-12] MEDS: MAGNESIUM SULFATE 1 GM/100 ML D5W BAG (10MG/ML) (J3475) IV ×2 (10:44→11:40)
[2017-12-12] MEDS: SODIUM CHLORIDE 0.9% INJ 10 ML SYR IV (12:47)
== END 2017-12-12 12:50 | disposition home or self-care (01) ==
LOC: M INFU 10:31
DX: E83.42 Hypomagnesemia (principal)
CPT/HCPCS: J3475

== ENCOUNTER → 2017-12-16 | Outpatient (CLI) | payer OTHER | LOC: M PAIN 11:30 | DX: M54.81 Occipital neuralgia (principal); M79.1 Myalgia; E11.40 Type 2 diabetes mellitus with diabetic neuropathy, unspecified; J45.909 Unspecified asthma, uncomplicated; E78.5 Hyperlipidemia, unspecified; Z79.4 Long term (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; Z79.891 Long term (current) use of opiate analgesic; Z79.899 Other long term (current) drug therapy; Z88.0 Allergy status to penicillin; Z88.1 Allergy status to other antibiotic agents; Z88.2 Allergy status to sulfonamides; Z88.5 Allergy status to narcotic agent; Z88.6 Allergy status to analgesic agent; Z88.8 Allergy status to other drugs, medicaments and biological substances; Z91.02 Food additives allergy status; Z91.040 Latex allergy status; Z91.041 Radiographic dye allergy status; Z86.718 Personal history of other venous thrombosis and embolism; Z87.19 Personal history of other diseases of the digestive system | CPT/HCPCS: G0463 ==

== ENCOUNTER 2017-12-17 06:55 | Outpatient (CLI) | payer OTHER ==
[2017-12-17] MEDS: SODIUM CHLORIDE 0.9% INJ 10 ML SYR IV (07:07)
[2017-12-17 07:53] LABS: MAGNESIUM LEVEL 2.1 MG/DL (1.8-2.4)
== END 2017-12-17 07:20 | disposition home or self-care (01) ==
LOC: M INFU 06:55
DX: E83.42 Hypomagnesemia (principal); E78.00 Pure hypercholesterolemia, unspecified; E78.5 Hyperlipidemia, unspecified; E11.9 Type 2 diabetes mellitus without complications; R51 Headache; Z79.4 Long term (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; Z79.899 Other long term (current) drug therapy; Z88.8 Allergy status to other drugs, medicaments and biological substances; Z91.018 Allergy to other foods; Z91.048 Other nonmedicinal substance allergy status; Z93.2 Ileostomy status; Z90.49 Acquired absence of other specified parts of digestive tract; Z86.72 Personal history of thrombophlebitis; Z86.14 Personal history of Methicillin resistant Staphylococcus aureus infection; Z98.890 Other specified postprocedural states
CPT/HCPCS: 83735

== ENCOUNTER 2017-12-19 11:03 | Outpatient (CLI) | payer OTHER ==
[2017-12-19] MEDS: MAGNESIUM SULFATE 1 GM/100 ML D5W BAG (10MG/ML) (J3475) IV ×2 (11:58→13:07)
[2017-12-19] MEDS: SODIUM CHLORIDE 0.9% INJ 10 ML SYR IV (13:42)
== END 2017-12-19 13:50 | disposition home or self-care (01) ==
LOC: M INFU 11:03
DX: E83.42 Hypomagnesemia (principal); R51 Headache; E78.00 Pure hypercholesterolemia, unspecified; E78.5 Hyperlipidemia, unspecified; E11.9 Type 2 diabetes mellitus without complications; J45.909 Unspecified asthma, uncomplicated; I95.9 Hypotension, unspecified; R42 Dizziness and giddiness; Z79.4 Long term (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; Z79.899 Other long term (current) drug therapy; Z88.0 Allergy status to penicillin; Z88.2 Allergy status to sulfonamides; Z88.3 Allergy status to other anti-infective agents; Z88.5 Allergy status to narcotic agent; Z88.8 Allergy status to other drugs, medicaments and biological substances; Z91.018 Allergy to other foods; Z91.048 Other nonmedicinal substance allergy status; Z90.710 Acquired absence of both cervix and uterus; Z87.442 Personal history of urinary calculi; Z86.72 Personal history of thrombophlebitis; Z93.2 Ileostomy status; Z90.49 Acquired absence of other specified parts of digestive tract
CPT/HCPCS: J3475

== ENCOUNTER 2017-12-26 06:27 | Outpatient (CLI) | payer OTHER ==
[2017-12-26] MEDS: MAGNESIUM SULFATE 1 GM/100 ML D5W BAG (10MG/ML) (J3475) IV ×2 (06:51→07:42)
[2017-12-26] MEDS: SODIUM CHLORIDE 0.9% INJ 10 ML SYR IV (08:16)
== END 2017-12-26 08:55 | disposition home or self-care (01) ==
LOC: M INFU 06:27
DX: E83.42 Hypomagnesemia (principal); R42 Dizziness and giddiness; E11.9 Type 2 diabetes mellitus without complications; R51 Headache; E78.00 Pure hypercholesterolemia, unspecified; E78.5 Hyperlipidemia, unspecified; I95.9 Hypotension, unspecified; J45.909 Unspecified asthma, uncomplicated; Z79.4 Long term (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; Z79.899 Other long term (current) drug therapy; Z88.0 Allergy status to penicillin; Z88.2 Allergy status to sulfonamides; Z88.5 Allergy status to narcotic agent; Z91.018 Allergy to other foods; Z91.048 Other nonmedicinal substance allergy status; Z91.040 Latex allergy status; Z87.442 Personal history of urinary calculi; Z90.49 Acquired absence of other specified parts of digestive tract; Z93.2 Ileostomy status; Z86.14 Personal history of Methicillin resistant Staphylococcus aureus infection; Z96.9 Presence of functional implant, unspecified; Z90.710 Acquired absence of both cervix and uterus
CPT/HCPCS: J3475

== ENCOUNTER → 2018-01-01 | Outpatient (CLI) | payer OTHER | LOC: M RAD 08:01 | DX: Z12.31 Encounter for screening mammogram for malignant neoplasm of breast (principal); N60.31 Fibrosclerosis of right breast; N60.32 Fibrosclerosis of left breast | CPT/HCPCS: 77067 ==

== ENCOUNTER 2018-01-07 06:38 | Outpatient (CLI) | payer OTHER ==
[2018-01-07] MEDS: SODIUM CHLORIDE 0.9% INJ 10 ML SYR IV (06:50)
[2018-01-07 07:43] LABS: MAGNESIUM LEVEL 1.9 MG/DL (1.8-2.4)
== END 2018-01-07 07:15 | disposition home or self-care (01) ==
LOC: M INFU 06:38
DX: E83.42 Hypomagnesemia (principal)
CPT/HCPCS: 96523

== ENCOUNTER 2018-01-14 07:24 | Outpatient (CLI) | payer OTHER ==
[2018-01-14] MEDS: SODIUM CHLORIDE 0.9% INJ 10 ML SYR IV (07:39)
[2018-01-14 08:04] LABS: MAGNESIUM LEVEL 1.9 MG/DL (1.8-2.4)
== END 2018-01-14 07:40 | disposition home or self-care (01) ==
LOC: M INFU 07:24
DX: E83.42 Hypomagnesemia (principal)
CPT/HCPCS: 36415

== ENCOUNTER 2018-01-21 06:31 | Outpatient (CLI) | payer OTHER ==
[2018-01-21] MEDS: SODIUM CHLORIDE 0.9% INJ 10 ML SYR IV (06:50)
[2018-01-21 07:47] LABS: MAGNESIUM LEVEL 1.8 MG/DL (1.8-2.4)
== END 2018-01-21 07:00 | disposition home or self-care (01) ==
LOC: M INFU 06:31
DX: E83.42 Hypomagnesemia (principal)
CPT/HCPCS: 36591

== ENCOUNTER → 2018-01-27 | Outpatient (CLI) | payer OTHER | LOC: M SMT 13:47 | DX: J45.30 Mild persistent asthma, uncomplicated (principal); J30.89 Other allergic rhinitis; R05 Cough | CPT/HCPCS: 71046 ==

== ENCOUNTER 2018-02-18 06:56 | Outpatient (CLI) | payer OTHER ==
[2018-02-18] MEDS: SODIUM CHLORIDE 0.9% INJ 10 ML SYR IV (07:26)
== END 2018-02-18 07:30 | disposition home or self-care (01) ==
LOC: M INFU 06:56
DX: E83.42 Hypomagnesemia (principal); N18.3 Chronic kidney disease, stage 3 (moderate); Z45.2 Encounter for adjustment and management of vascular access device
CPT/HCPCS: 96523

== ENCOUNTER 2018-03-18 06:49 | Outpatient (CLI) | payer OTHER ==
[2018-03-18] MEDS ORDERED: SODIUM CHLORIDE 0.9% INJ 10 ML SYR IV (09:00)
== END 2018-03-18 07:15 | disposition home or self-care (01) ==
LOC: M INFU 06:49
DX: E83.42 Hypomagnesemia (principal); Z79.51 Long term (current) use of inhaled steroids; Z79.899 Other long term (current) drug therapy; Z79.4 Long term (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; Z88.1 Allergy status to other antibiotic agents; Z88.5 Allergy status to narcotic agent; Z91.02 Food additives allergy status; Z91.018 Allergy to other foods; Z91.048 Other nonmedicinal substance allergy status; Z88.0 Allergy status to penicillin
CPT/HCPCS: 96523

== ENCOUNTER → 2018-03-20 | Outpatient (CLI) | payer OTHER | LOC: M RAD 15:35 | DX: R10.32 Left lower quadrant pain (principal); Z96.9 Presence of functional implant, unspecified; Z93.4 Other artificial openings of gastrointestinal tract status | CPT/HCPCS: 74018 ==

== ENCOUNTER 2018-03-30 15:29 | Outpatient (CLI) | payer OTHER ==
[~2018-03-30] VITALS: Ht 167.6 cm; Wt 77.8 kg
[~2018-03-30 15:29] MED LIST changes: +*GLUCOMETE; +*MAMMOGRAM; +*MAYHAVE; +/AMIT100TA PO; +/ESOM40CA; +/ESOM40CA OR; +/GLIM2TA; +/GLIM4TA; +/GUAIMAX PO; +/INSULEV SC; +/INSULEV SQ; +/INSUNPH SC; +/INSUREG SQ; +/IPRA3SP INH; +/ONDA4TA; +/ONDA4TA OR; +/ONDA4TA PO; +/PANT40TA PO; +/RANI15TA PO; +/SUCR1TA OR; +/SUCR1TA PO; +3 DA0.1C TOP; +A AND D TD; +ACET650T12 PO; +ACET65TA; +ADVAIR250 INHALATION; +ADVAIR500 INHALATION; +AFRI0.65; +ALBOTERNEB INHALATION; +ALBU17IN INH; +ALBU17IN2 INH; +ALBU17IN2 INJ; +ALBU83IN; +ALBU83IN IN; +ALBU83IN INH; +ALBUTEROL INH; +ALBUTEROL INH INH; +ALBUTEROL INHALATION; +ALCOHOL TOP; +ALLE180T33 PO; +ALLE25CA PO; +AMAR1TAB PO; +AMARYL PO; +AMIT10TA2 PO; +AMIT150T; +AMIT150T OR; +AMIT150T PO; +AMIT24CA PO; +AMIT50TA PO; +AMIT50TA2; +AMIT50TA2 OR; +AMIT50TA2 PO; +AMITIZA PO; +AMITRIP50 PO; +AMITRIPTYLINE; +AMITZA PO; +AMMO12LO TOP; +ASPI81TA24 PO; +ASPI81TA3 OR; +ASTELIN; +ASTELIN INH; +ASTELIN NASAL SPRAY; +ATARAX25 PO; +ATROVENT0.02% INH; +AUG875 PO; +AURASOL TOPICAL; +AZEL0.1S3; +AZELASTINE; +Amitiza PO; +BACID PO; +BACTROCREA TOPICALLY; +BACTROOINT TOPICALLY; +BATTERY; +BENA25CA2 PO; +BISA10SU2; +CALALOT TOP; +CATATTS2 TOPICALLY; +CEFD1CAP8 PO; +CEFTIN250 PO; +CEPH500C PO; +CETI10TA; +CETI10TA PO; +CHOL4PKT PO; +CHOLPOW PO; +CITR1SOL PO; +CLAR10CA3 PO; +CLAR1TAB2 PO; +CLAR5CHW OR; +CLAR5CHW PO; +CLARITD12H PO; +CLARITIN; +CLARITIN PO; +CLARITIN10 PO; +COLA100C2; +COLA100C2 OR; +COLA100C2 PO; +COLA100C5 PO; +COLA50CA3 PO; +COLACE PO; +CORTISPOR OTIC; +CYMBALTA30 PO; +CYMBALTA60 PO; +Cholestyramine PO; +DESIOIN3; +DESONIDECR TOPICAL; +DICL0.1S7 TD; +DIFLUC100 PO; +DIFLUC150 PO; +DILA2TAB OR; +DILA2TAB PO; +DILA2TAB6 PO; +DILA4TAB13 PO; +DILAUDID PO; +DIPH2.5L; +DIPH2.5L PO; +DIPH2.5T14 PO; +DOCU10CA PO; +DOXYCYC100 PO; +EFUDEX EXT; +ELIDEL 1%; +ELIDEL TOPICAL; +ELOCONCR TOPICAL; +Elavil PO; +FERR325T OR; +FERROUS325 PO; +FEXO60CA PO; +FLAGYL250 PO; +FLONASESPR NASAL; +FLOVENT110 PO; +GAS-80CH; +GEMF600T PO; +GEMF600T5 PO; +GLUC1000; +GLUC1000 OR; +GLUC1000 PO; +GLUCCOSEAC TOPICAL; +GLUCLIQ7 PO; +GLUCOP1000 PO; +GLUCOPH500 PO; +GLUCOSE TEST; +GOLYLQ PO; +HEPA100PFS IV; +HEPA1INJ4 IV; +HUMUINJ; +HUMUINJ IJ; +HUMUINJ SQ; +HUMULINR SC; +HYDR1OI TOP; +HYDR4TAB; +HYDR4TAB PO; +HYDROCCR1 TOPICAL; +IMODIUM; +INSUDET SC; +INSUH10VL SC; +INSULIN HUMULIN R; +INSULIN LEVEMIR SQ; +IPRA2IN INH; +K-TA1TAB PO; +KEFL500C17 PO; +KEFLEX250 PO; +KEFLEX500 PO; +KETO0.02 OU; +KETOTIFEN FUMARATE; +KLOR20TA42 PO; +LAC-HYDRIN TOP; +LACT10SO15 PO; +LACT10SO29 PO; +LACT10SO8 OR; +LACT10SO8 PO; +LACT20EL PO; +LANCMIS; +LANCMIS SUB Q; +LANTUS SQ; +LEVA750T7 PO; +LEVAQUI250 PO; +LEVAQUI500 PO; +LIDO4CRE2 TOP; +LIDO5DIS TOP; +LIDO5DIS41 TD; +LIDOCAINE JELLY 2% TOP; +LIDOCAINE JELLY TOP; +LIDOCAINE/PRILOCAINE TOP; +LIDOPOW EXT; +LOMO2.5T PO; +LOMOTA OR; +LOMOTA PO; +LOPI600T OR; +LOPI600T PO; +LORTAB5 PO; +LORTTAB5 PO; +MACROBID PO; +MAG CITRATE PO; +MAG-TAB; +MAG400TA PO; +MAGN1INJ2 IV; +MAGN20IN5 IV; +MAGN400C2 PO; +MAGN400C3 PO; +MAGN400T5 PO; +MAGN500T2 OR; +MAGN500T2 PO; +MAGNESIUM OXIDE; +MAMMOGRAM; +MEDROLDP PO; +METF10004 PO; +METF500T13 PO; +METFORMIN; +METO10ELUD PO; +METO10TA2; +METO5TAB2 OR; +METO5TAB2 PO; +METROCR.75 TOPICAL; +MICR10CA PO; +MILK12002 PO; +MILKSUS; +MINI2CAP; +MINI2CAP OR; +MINI2CAP PO; +MINIPRESS PO; +MIRA3350 PO; +MIRA33504 PO; +MIRALAX PO; +MIRALEX OR; +MIRALEX PO; +MOM30SS PO; +MOME50SP; +MORP15TA4; +MORP30TA4; +MORPHINE SULFATE IR; +MOVA1TAB PO; +MS C15TA5; +MS C15TA5 PO; +MUCINEX ER PO; +MUCINEX OR; +MUCINEX PO; +MULT1TAB8 PO; +MULTIVIT OR; +MULTIVIT PO; +MULTLIQ7; +MYCOLOG2; +NASA1SPR; +NASA55AE; +NASOCORT; +NASONEX NASAL; +NEEDLESFIN SQ; +NEXI40GR PO; +NEXIUM40 PO; +NORMSALNS INHALATION; +NOVO1INJ4 SC; +NOVO70VL SC; +NYSTATIN POWDER TOP; +NYSTATIN TOP; +NYSTATINCR TOPICAL; +NYSTOP TOP; +NYSTPOW4 TOP; +ONDA2VL IV; +ONDA4INJ48 IM; +ONDA4VLL IM; +ONDA8TAB7 PO; +PEDISOL4 PO; +PEG1POW PO; +PENN1.5S2 TD; +PENNSAID DROPS TOP; +PEPTO BISMOL PO; +PERC5TAB8 OR; +PERC7.5T8 OR; +POLYETHYLENE GLYCOL; +POTA1TAB14 PO; +PRAZ2CAP PO; +PRED10TA PO; +PRED20TA PO; +PREDNISO10 PO; +PREDNISO20 PO; +PREDNISO50 PO; +PREMAR1.25 PO; +PREMARI625 PO; +PREVACID15 PO; +PROAAER10 IN; +PROCTOSOL HC PR; +PROCTOSOL PR; +PROCTOSOL TOP; +PROV90AE; +PROVENTILI; +PROVENTILI INHALATION; +PYRIDIU100 PO; +PYRIDIU200 PO; +QUES4POW PO; +QUESTRAN; +RANI150T PO; +REGL10TA6 PO; +REGLAN10 PO; +ROBI30SU PO; +SALI0.9I2 IV; +SENN-22 PO; +SENN15TA2 PO; +SENN8.6T14; +SENN8.6T14 OR; +SENO8.6T10 PO; +SENO8.6T5 OR; +SENO8.6T9 PO; +SENOKOT PO; +SEREVENTIN PO; +SILVADENE TOPICAL; +SIME180C PO; +SIME80TA PO; +SIMV10TA2 PO; +SIMV20TA2 PO; +SLOWTAB; -SODIUM CHLORIDE 0.9% INJ 10 ML SYR IV; +SODIUM CHLORIDE 0.9% INJ 10 ML SYR IV SCH; +STOO100C PO; +SUCR1TA PO; +SUCRPOW; +SYMB16INH INH; +SYMB80INH INH; +SYMBICORT; +SYMBICORT INH; +SYR.5; +SYRINS1CC SUBQ; +TAP WATER ENEMA PR; +TEQUIN400 PO; +TESS100C PO; +TESSALO100 PO; +THERGRAN PO; +TIZA2CAP PO; +TIZA2TA PO; +TIZA2TAB3 PO; +TOUJ1.2I SC; +TRIA55SP; +TRICOR48 PO; +TUMS500C; +TUMS500C OR; +TUMS500C PO; +TUSSIONEX PO; +TYL PO; +TYLE325T5 PO; +ULTRAM50 PO; +VALI2TAB; +VERA27.5; +VERAMYST; +VICO5TAB; +VICO5TAB OR; +VICOBULK OR; +VICODAN PO; +VICODIN PO; +VICODINES TAB; +VITMTA PO; +VOLT1GEL; +VOLT1GEL EX; +VOLT1GEL EXT; +VOLT1GEL TOP; +VOLT1GEL2 TOP; +Z-PAK PO; +ZADITOR; +ZANT150T PO; +ZANTAC150 PO; +ZITH200S OR; +ZITHROM250 PO; +ZITHROM500 PO; +ZITHROZPAK PO; +ZOCO20TA PO; +ZOFR4TAB14 PO; +ZOFR8TAB; +ZOFR8TAB22 PO; +ZYRT10CA PO; +ZYRTECD12 PO; +[UNRECOGNIZED DRUG - CODE]; +[UNRECOGNIZED DRUG - CODE]; +[UNRECOGNIZED DRUG - CODE] EXT; +[UNRECOGNIZED DRUG - CODE] IV; +[UNRECOGNIZED DRUG - CODE] PO; +[UNRECOGNIZED DRUG - CODE] PO; +[UNRECOGNIZED DRUG - CODE] PO; +[UNRECOGNIZED DRUG - CODE] PO; +[UNRECOGNIZED DRUG - CODE] TOP; +[UNRECOGNIZED DRUG - CODE] TOPICAL; +[UNRECOGNIZED DRUG - OTHER]; +[UNRECOGNIZED DRUG - OTHER]; +[UNRECOGNIZED DRUG - OTHER]; +[UNRECOGNIZED DRUG - OTHER]; +[UNRECOGNIZED DRUG - OTHER]; +[UNRECOGNIZED DRUG - OTHER]; +[UNRECOGNIZED DRUG - OTHER]; +[UNRECOGNIZED DRUG - OTHER]; +[UNRECOGNIZED DRUG - OTHER]; +[UNRECOGNIZED DRUG - OTHER] PO; +[UNRECOGNIZED DRUG - OTHER] PR; +[UNRECOGNIZED DRUG - OTHER] RECTALLY; +[UNRECOGNIZED DRUG - OTHER] SC; +[UNRECOGNIZED DRUG - OTHER] SC; +[UNRECOGNIZED DRUG - OTHER] TD; +[UNRECOGNIZED DRUG - SUPPLY]; +[UNRECOGNIZED DRUG - SUPPLY] -; +astelin; +astepro; +desitin; +diclofenac PO; +elavil; +lidoderm patch TD; +nasocort; +polyethylene glycol; +questran OR; +saline nasal spray; +veramyst; +voltaren gel
[2018-03-30 15:35] VITALS: BP 133/69
[2018-03-30 16:18] LABS: HEMATOCRIT 37.7 % (36.0-47.0); MEAN CORPUSCULAR HEMOGLOBIN 30.3 pg (27.0-33.0); MEAN CORPUSCULAR HGB CONC 31.8 g/dl (32.0-36.5); MEAN CORPUSCULAR VOLUME 95.2 fl (80.0-96.0); PLATELET COUNT, AUTOMATED 290 10^3/uL (150-450); RED BLOOD COUNT 3.96 10^6/uL (4.00-5.40); WHITE BLOOD COUNT 6.2 10^3/uL (4.0-10.0)
[2018-03-30 16:46] LABS: ALBUMIN 3.4 GM/DL (3.2-5.2); ALT/SGPT 32 U/L (12-78); BILIRUBIN,TOTAL 0.1 MG/DL (0.2-1.0); BLOOD UREA NITROGEN 12 MG/DL (7-18); CARBON DIOXIDE LEVEL 27 MEQ/L (21-32); CHLORIDE LEVEL 105 MEQ/L (98-107); CHOLESTEROL LEVEL 221 MG/DL (<200); CHOLESTEROL RISK RATIO 2.762 (<5); CREATININE FOR GFR 0.57 MG/DL (0.55-1.30); GLOMERULAR FILTRATION RATE > 60.0 (>51); GLUCOSE, FASTING 63 MG/DL (70-100); HDL CHOLESTEROL 80 MG/DL (>40); LDL CHOLESTEROL 71 MG/DL (<100); MAGNESIUM LEVEL 1.8 MG/DL (1.8-2.4); NON-HDL-C 141 MG/DL; POTASSIUM SERUM 3.9 MEQ/L (3.5-5.1); SODIUM LEVEL 138 MEQ/L (136-145); TOTAL PROTEIN 7.9 GM/DL (6.4-8.2); TRIGLYCERIDES LEVEL 348 MG/DL (<150)
[2018-03-30 16:47] LABS: HEMOGLOBIN A1c 8.7 %
== END 2018-03-30 16:35 | disposition home or self-care (01) ==
LOC: M INFU 15:29
PROVIDERS: ATTEND Family Medicine
DX: E83.42 Hypomagnesemia (principal); Z79.899 Other long term (current) drug therapy; Z79.51 Long term (current) use of inhaled steroids; Z88.8 Allergy status to other drugs, medicaments and biological substances; Z79.4 Long term (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; Z88.1 Allergy status to other antibiotic agents; Z88.5 Allergy status to narcotic agent; Z91.02 Food additives allergy status; Z91.018 Allergy to other foods; Z91.048 Other nonmedicinal substance allergy status; Z88.0 Allergy status to penicillin

== ENCOUNTER → 2018-04-03 | Outpatient (CLI) | payer OTHER ==
[~2018-04-03] MED LIST changes: +GAS125CA15 PO; +GAS125CH10 PO; +MILK120011 PO; -MILK12002 PO; +READI-CAT 2 As Ordered ONE; -SODIUM CHLORIDE 0.9% INJ 10 ML SYR IV SCH; -[UNRECOGNIZED DRUG - CODE] PO; -[UNRECOGNIZED DRUG - CODE] PO
--- NOTE | 2018-04-03 16:01 | REP ---
Clinical: Left lower quadrant pain with possible incisional hernia. History of prior colectomy and colostomy. Comparison: 11/13/2017, 09/13/2017. Findings: Lung bases demonstrate chronic fibro atelectatic change and small fat containing left Bochdalek hernia. Fatty infiltration of the liver with hepatomegaly. Spleen, atrophic pancreas, bilateral adrenal glands and kidneys are relatively normal for noncontrast evaluation. The patient is status post cholecystectomy. Evidence for prior abdominal surgery with postsurgical changes involving the anterior abdominal wall as well as prior colectomy with colostomy via the left anterior abdominal wall and Maribell's pouch in the pelvis. There is no evidence for bowel obstruction or obvious acute pericolonic/perienteric inflammatory stranding. No significant peristomal hernia identified. There is a presumed postsurgical spigelian hernia which contains a loop of nonobstructed small bowel. Pelvis demonstrates normal bladder and evidence of prior hysterectomy. No ascites. No adenopathy. No free air. Abdominal aorta without aneurysm. Musculoskeletal structures demonstrate degenerative changes without focal osseous abnormality. Impression: 1. No significant peristomal hernia identified on current examination. Spigelian hernia inferior and lateral to the ostomy is noted in the left lower abdominal wall and contains nonobstructed loop of small bowel. 2. No ascites, focal inflammatory stranding or adenopathy. No further acute abdominopelvic pathology appreciated. 3. Further chronic changes as noted above. Electronically Signed by Darius Roth MD 04/03/2018 03:53 P
== END ==
LOC: M RAD 13:46
PROVIDERS: ATTEND Surgery
DX: R10.32 Left lower quadrant pain (principal); K43.9 Ventral hernia without obstruction or gangrene; Z93.3 Colostomy status

== ENCOUNTER → 2018-04-23 | Outpatient (CLI) | payer OTHER ==
[~2018-04-23] MED LIST changes: -READI-CAT 2 As Ordered ONE
--- NOTE | 2018-05-11 01:25 | ECWPNPC ---
PATIENT NAME: GLENN FELDER : 1960 GENDER: FEMALE VISIT DATE: 04/23/2018 DISCHARGE DATE: 04/23/18 1133 VISIT LOCKED DATE TIME: PHYSICIAN: NAVNEET BRAY RESOURCE: NAVNEET BRAY REASON FOR APPOINTMENT 1. HEAD/NECK PAIN PT OF SW HISTORY OF PRESENT ILLNESS HISTORY OF PRESENT ILLNESS: HERE FOR F/U AND MANAGEMENT OF CHRONIC ABDOMINAL AND NECK PAIN.RIGHT SIDED NECK PAIN HAS ESCALATED OVER THE PAST MONTH.DISCUSSED MEDICATION AND TREATMENT OPTIONS.RATING NECK PAIN /10.DESCRIBES PAIN CONTINUOUS WITH NIGHTTIME INTERUPTION IN SLEEP DUE TO PAIN. PAIN THE PATIENT DESCRIBES THE PAIN... FALL RISK SCREENING: SCREENING :NO FALLS IN THE PAST YEAR CURRENT MEDICATIONS TAKING RANITIDINE HCL 150 MG TABLET 1 TABLET ORALLY TWICE A DAY TAKING AMITRIPTYLINE HCL 50 MG TABLET DIRECTED ORALLY 1 TAB IN AM AND 3 TABS AT BEDTIME TAKING MAY SAVAGE BAGS CLEAR VELCRO CLOSER ([id number]) ICD:V55.3 CHANGE NEEDED (EDUARD) TAKING ONETOUCH ULTRA TEST - STRIP USE 1 STRIP FOUR TIMES A DAY TAKING ONETOUCH DELICA LANCETS 33G - MISCELLANEOUS USE DIRECTED FOUR TIMES A DAY TAKING MAY HAVE SAVAGE WAFERS NEW IMAGE SKIN BARRIERS FLATING FLANGES ICD: V55.3 (00812 2 1/2 CHANGE NEEDED (EDUARD) TAKING BABY WIPES 1 MISCELLANEOUS DIRECTED TOPICALLY PRN DX:569.62 TAKING COMPRESSION STOCKINGS 20/30 STOCKINGS 724.4 THIGH HIGHS DAILY TAKING SYMBICORT 160-4.5 MCG/ACT AEROSOL 2 PUFFS INHALATION TWICE A DAY TAKING ZOCOR 20 20MG TABLET 1 TAB(S) ORAL AT BEDTIME TAKING HEPARIN SODIUM (PORCINE) 5000 UNIT/ML SOLUTION INJECTION ONCE DAILY ON WEDNESDAYS AND FRIDAYS TAKING ONE TOUCH ULTRA SYSTEM KIT METER DIRECTED ONE TOUCH ULTRA MINI-METER ONLY DX: E11.9, E11.21, E11.22, E11.65 TAKING ASTELIN 137 MCG/SPRAY SOLUTION 1 PUFF IN EACH NOSTRIL NASALLY TWICE A DAY TAKING NYSTATIN POWDER [id number] UNIT/GM POWDER APPLY EXTERNALLY TWICE A DAY TO SKIN SURROUNDING STOMA INTIL HEALED, NOTES: NEEDED TAKING DOCUSATE SODIUM 50 MG/5ML LIQUID 5 ML NEEDED ORALLY BID PRN CONSTIPATIO TAKING MAY HAVE - - DIRECTED ABDOMINAL BINDER WITH STOMA CUT-OUT WEAR DAILY FOR ABDOMINAL HERNIA PAIN. DX: K43.9 TAKING SYRINGE/NEEDLE (DISP) 1CC DIABETIC 1 SQ FOUR TIMES DAILY/DX:E11.9 IDDM TAKING SYRINGE 25G X 1 MISCELLANEOUS DIRECTED INTRAMUSCULAR ONCE DAILY; ICD:R11.0 TAKING BD SYRINGE/NEEDLE 23G X 1 MISCELLANEOUS 1 SYRINGE INTRAMUSCULARLY TWICE DAILY DX:R11.0 TAKING BD PEN NEEDLE ULTRAFINE 29G X 12.7MM MISCELLANEOUS DIRECTED TOPICALLY DAILY TAKING ONETOUCH LANCETS DELICA LANCET 1 SUBCUTANEOUSLY 4 TIMES A DAY/DX:E11.90 IDDM TAKING A & D ZINC OXIDE - CREAM APPLY TO PERINEAL AREA AFTER EACH BM EXTERNALLY DIRECTED TAKING ZOFRAN 4 MG/2ML SOLUTION 2 OR 4 ML IM (MEDICALLY NECESSARY) BID AT LEAST 8H APART TAKING NEEDLE (DISP) 30G X 1 MISCELLANEOUS DX: E11.9 FOR LEVEMIR PEN VITRO DAILY TAKING NASACORT AQ 55 MCG/ACT AEROSOL SOLUTION 2 PUFF IN EACH NOSTRIL NASALLY ONCE A DAY TAKING ONE TOUCH ULTRA 2 LANCET 1 LANCET LANCET ICD:250.02 IDDM FOUR TIMES DAILY TAKING BLOOD GLUCOSE TEST STRIP - STRIP 1 STRIP IN VITRO 4 TIMES DAILY TAKING SIMETHICONE 80 MG TABLET CHEWABLE 2 TABLETS AFTER MEALS AND AT BEDTIME NEEDED ORALLY THREE TIMES A DAY NEEDED FOR ABDOMINAL PAIN AND DISTENTION TAKING SUCRALFATE 1 GM TABLET CRUSH 1 TABLET AND MIX INTO A SLURRY WITH 10-15MLS OF WATER ORALLY TWICE A DAY TAKING ALCOHOL PREPS _ WIPE DX: E11.9 TOPICAL 5 TIMES A DAY NEEDED FOR INJECTIONS TAKING LOPID 600 MG TABLET 1 TABLET ORALLY DAILY TAKING LACTULOSE 20 GM/30ML SOLUTION 15 ML ORALLY THREE TIMES DAILY TAKING METOCLOPRAMIDE HCL 5 MG/5ML SOLUTION 10 MG (10ML) ORALLY 30 MINUTES BEFORE MEALS AND AT BEDTIME NEEDED TAKING SPIRIVA RESPIMAT 1.25 MCG/ACT AEROSOL SOLUTION 2 PUFFS INHALATION TWICE DAILY TAKING TIZANIDINE HCL 2 MG TABLET 1/2 TABLET ORALLY TWICE A DAY TAKING CETIRIZINE HCL 10 MG TABLET 1 TABLET ORALLY ONCE A DAY TAKING KLOR-CON M20 20 MEQ TABLET EXTENDED RELEASE 1 TABLET ORALLY ONCE A DAY TAKING HYDROMORPHONE HCL 4 MG TABLET 1/2 -1 TABLET ORALLY EVERY 4 HRS PRN PAIN MDD=5 TAKING CLOTRIMAZOLE-BETAMETHASONE 1-0.05 % CREAM 1 APPLICATION TO AFFECTED AREA TOPICALLY TO LEFT ABDOMEN TWICE A DAY TAKING NOVOLOG MIX 70/30 (70-30) 100 UNIT/ML SUSPENSION 35 UNITS SUBCUTANEOUS DAILY AT THE MIDDAY MEAL TAKING MIRALAX 1 SUSPENSION 17 GRAMS ORALLY THREE TIMES DAILY TAKING LAC-HYDRIN 12 % LOTION 1 APPLICATION TO AFFECTED AREA EXTERNALLY TWICE A DAY TAKING TOUJEO SOLOSTAR 300 UNIT/ML SOLUTION PEN-INJECTOR SUBCUTANEOUS NOT-TAKING MAGNESIUM _ _ INFUSION INFUSION ONCE WEEKLY, NOTES: ON HOLD FOR NOW NOT-TAKING SIMETHICONE 125 MG TABLET CHEWABLE 1 TABLET NEEDED ORALLY FOUR TIMES A DAY PRN ABDOMINAL DISTENTION OR PAIN, NOTES: PRN NOT-TAKING LORATADINE 10 MG TABLET 1 TABLET ORALLY ONCE A DAY, NOTES: PRN NOT-TAKING LIDOCAINE 5 % OINTMENT 1 APPLICATION TO AFFECTED AREA NEEDED EXTERNALLY THREE TIMES A DAY TO BACK OF HEAD/NECK PRN PAIN DISCONTINUED BASAGLAR 100 UNIT/ML - SOLUTION SOLUTION 70 UNITS SUBCUTANEOUS IN THE MORNING MEDICATION LIST REVIEWED AND RECONCILED WITH THE PATIENT PAST MEDICAL HISTORY DM II WITH NEUROPATHY, HBA1C GOAL IS 8.0 FOR NOW B/C OF RISK OF HYPOGLYCEMIA, CONSIDER LOWER IF CONSISTENTLY ACHIEVED ASTHMA HYPERLIPIDEMIA GERD NEPHROLITHIASIS 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 ALLERGIC RHINITIS CHRONIC MAXILLARY SINUSITIS CHRONIC HEADACHES (PAIN MANAGEMENT) CHRONIC PAIN SYNDROME/RSD (PAIN MANAGEMENT) PERSONAL HISTORY OF VENOUS THROMBOSIS AND EMBOLISM (RESOLVED 12/19/2009) ALLERGIES IODINE: NERVES, TIGHT MUSCLES: SIDE EFFECTS GABAPENTIN: NERVOUS SYSTEM,SHAKEY: SIDE EFFECTS GABITRIL: NERVOUS: SIDE EFFECTS KETOROLAC TROMETHAMINE: VOMITING: SIDE EFFECTS MEPERIDINE HCL: OUT OF BODY EXPERIENCE: SIDE EFFECTS MORPHINE SULFATE: SEVERE H/A WITH BIG DOSE: SIDE EFFECTS PROMETHAZINE HCL: OUT OF BODY EXPERIENCE: SIDE EFFECTS TRAMADOL: SHAKES: SIDE EFFECTS OXYCODONE: VOMITING,HIVES: ALLERGY PENICILLIN (FOR ALLERGIES USE ONLY): HIVES: ALLERGY FENTANYL: NERVOUS: SIDE EFFECTS DROPERIDOL: OUT OF BODY: SIDE EFFECTS CODEINE SULFATE: OUT OF BODY EXPERIENCE: SIDE EFFECTS PHENOTHIAZINES: NERVOUS SYSTEM: SIDE EFFECTS QUINOLONES- CIPRO,TEQUIN: HIVES: ALLERGY RED FOOD DYE: RASH: ALLERGY LIDODERM (LICOCANINE): HEART RACES: SIDE EFFECTS SULFA: HIVES: ALLERGY ASPIRIN: HIVES: ALLERGY ATIVAN: HALLUCINATIONS: SIDE EFFECTS AZITHROMYCIN: HIVES: ALLERGY BACLOFEN: AFFECTED NERVOUS SYT: SIDE EFFECTS LYRICA: SHAKES, EVERYTHING IS BLACK: SIDE EFFECTS VICODIN: CONFUSION: SIDE EFFECTS MACROBID: HIVES, BLURRED VISION: ALLERGY READI-CAT: HIVES: ALLERGY ALBUTEROL SULFATE: COUGH: ALLERGY GASTROGRAFIN: ONLY 1 BOTTLE PER TEST DAY (CAN NOT TOLERATE ANY MORE THAN 1 BOTTLE): CONTRAINDICATION LATEX (FOR ALLERGY USE ONLY): DIFFICULTY : ALLERGY SURGICAL HISTORY NO PERSONAL HX OF SEVERE REACTION TO ANESTHESIA, HER BROTHER HAS "HAD HIS THROAT CLOSE OFF TWO DIFFERENT TIMES" WITH GENERAL ANESTHESIA SCALP TUMOR 1984 LUMPECTOMIES - REPORTED BENIGN BILATERAL 16 AND 21 YO TOTAL HYSTERECTOMY-DUE TO OVARIAN CYSTS/MASS 21 YO BILAT SYMPATHECTOMY 1987 AV FISTULA REPAIR L LEG 1988 CHOLECYSTECTOMY LATE SBO 2001 ABDOMINAL HERNIA REPAIR 2004 VENTRAL HERNIA REPAIR 2009 DORSAL COLUMN STIMULATOR TAKEN OUT AND NEW ONE IMPLANTED 02/21 SMALL PORTION OF SMALL BOWEL RESECTED AND VENTRAL HERNIA REPAIRS (GOESSLIN) 06/2010 ILEOSTOMY-EDUARD 07/28/12 CYST REMOVED RIGHT NOSTRIL- DR RAJPUT. 09/17/12 REPAIR TWO HERNIAS AND REPAIR OF STOMA 03/26 HERNIA REPAIR X2 08/31/13 PARASTOMAL HERNIA REPAIR- EDUARD 06/26 HERNIA AND STOMA REPAIR-EDUARD 06/11 PERASTOMAL HERNIA REPAIR, WITH A SMALL BOWEL OBSTRUCTION 03/2017 INFUSAPORT PLACMENT ([facility]) 08/2017 HERNIA REPAIR X4 STOMA REVERSAL 10/2017 BATTERY REPLACEMENT FOR STIMULATOR 02/2018 FAMILY HISTORY FATHER: ALIVE, CANCER MOTHER: , OF MYELODYSPLASTIC SYNDROME; WAS ALSO KNOWN TO HAVE CAD SIBLINGS: ALIVE 1 BROTHER(S) - HEALTHY. SOCIAL HISTORY GENERAL: TOBACCO USE ARE YOU A:NONSMOKER NEVER SMOKER ALCOHOL SCREENING DID YOU HAVE A DRINK CONTAINING ALCOHOL IN THE PAST YEAR?NO POINTS0 INTERPRETATIONNEGATIVE RECREATIONAL DRUG USE DRUG USE?NO CAFFEINE CAFFEINE USE?NO SEXUAL HX HAD SEX IN THE LAST 12 MONTHS (VAGINAL, ORAL, OR ANAL)?NO HAVE YOU EVER HAD AN STD?NO HIV / HEP-C SCREENING HIV TEST OFFERED TO PATIENT:YES DATE OFFERED:07/18/2016 TEST ACCEPTED:NO REASON:PATIENT DECLINED HEP-C TEST OFFERED TO PATIENT:YES DATE OFFERED:07/18/2016 TEST ACCEPTED:NO REASON:PATIENT DECLINED [id number]. EDUCATION LEVEL OF EDUCATION:[employer] 8TH GRADE LEARNING BARRIERS / SPECIAL NEEDS CHANGE FROM LAST VISIT?NO BARRIERS TO LEARNING?NO HEARING IMPAIRED?NO VISION IMPAIRED?YES :CORRECTIVE LENSES COGNITIVELY IMPAIRED?NO READINESS TO LEARN?YES LEARNING PREFERENCES?NO LEARNING CAPABILITIES PRESENT?YES EMOTIONAL BARRIERS?NO SPECIAL DEVICES?YES :CANE, WHEELCHAIR BRICK SIDING APPLICATOR NEEDED?NO DOMESTIC VIOLENCE DO YOU FEEL SAFE IN YOUR ENVIRONMENT?YES OCCUPATION: DISABLED. DIET: NO CONCENTRATED SWEETS., CARBOHYDRATE CONTROLLED. EXERCISE: NO REGULAR EXERCISE. MARITAL STATUS: SINGLE. OTHERS AT HOME: NONE. NEW PATIENT PAIN DIARY FROM 0-10, WHAT LEVEL IS YOUR PAIN TODAY?10 PAIN CLINIC PFS, CLERGY, PUBLIC HEALTH REFERRALS PFS REFERRAL NEEDED?NO CLERGY REFERRAL NEEDED?NO PUBLIC HEALTH REFERRAL NEEDED?NO HAS THE PATIENT BEEN EDUCATED REGARDING HIS/HER PLAN OF CARE?YES HAS THE PATIENT BEEN EDUCATED REGARDING PAIN, THE RISK FOR PAIN, THE IMPORTANCE OF EFFECTIVE PAIN MANAGEMENT, AND THE PAIN ASSESSMENT PROCESS?YES ADVANCE DIRECTIVE ADVANCE DIRECTIVE DISCUSSED WITH PATIENT:YES DECLINED HOSPITALIZATION/MAJOR DIAGNOSTIC PROCEDURE [facility]- SMALL BOWEL OBSTRUCTION, WAS IN HOSPITAL 11 DAYS 09/2015 [facility]- SMALL BOWEL OBSTRUCTION, WAS IN HOSPITAL IN 5 DAYS 03/2016 [facility]- SMALL BOWEL OBSTRUCTION 04/12/16-04/17/16 [facility]- SMALL BOWEL OBSTRUCTION 06/2016 [facility]- SMALL BOWEL OBSTRUCTION 03/17/17-04/18/17 REVIEW OF SYSTEMS REVIEWED BY: PROVIDER: NAVNEET SANABRIA . CONSTITUTIONAL: ANY CHANGE IN YOUR MEDICAL CONDITION? YES, PT IS GOING TO BE HAVING SURGERY ON ABDOMINAL HERNIA. PT HAD DORSAL COLUMN BATTERY REPLACED IN FEBRUARY AND SEEMS TO BE CHARGING CORRECTLY SINCE THEN. . CHILLS NO . FEVER NO . INFECTION: DO YOU HAVE NEW INFECTIONS? NO . DO YOU HAVE HISTORY OF MRSA? NO . MUSCULOSKELETAL: ANY NEW PATTERNS OF PAIN OR NUMBNESS? NO . GASTROENTEROLOGY: ANY NEW CHANGE IN BOWEL CONTROL? NO . GENITOURINARY: ANY NEW CHANGE IN BLADDER CONTROL? NO . IS THERE A CHANCE YOU COULD BE ? NO . HEMATOLOGY/LYMPH: DO YOU TAKE ANY BLOOD THINNERS? (FOR EXAMPLE- COUMADIN, PLAVIX, AGGRENOX, PLATEL, PRADAXA, OR XARELTO) YES, HEPARIN . WHEN WAS YOUR LAST DOSE? DATE: TIME: . NEUROLOGY: HAVE YOU FALLEN IN THE PAST 6 MONTHS? NO . ANY NEW EXTREMITY NUMBNESS OR WEAKNESS? NO . CARDIOLOGY: DO YOU HAVE A PACEMAKER OR DEFIBRILLATOR? NO . RESPIRATORY: HAVE YOU BEEN SICK IN THE PAST WEEK? NO . FEVER NO . FLU LIKE SYMPTOMS? NO . COUGH NO . INTEGUMENTARY: DO YOU HAVE ANY RASHES OR OPEN SORES? YES, RASH TO ABDOMEN SINCE LAST WEEK, CURRENTLY SEEING PRIMARY DOCTOR REGARDING THIS. . ALLERGIC/IMMUNO: ARE YOU ALLERGIC TO SHELLFISH OR IV DYE? NO . ANY NEW ALLERGIES? NO . PSYCHIATRIC: DO YOU HAVE THOUGHTS OF HURTING YOURSELF OR SOMEONE ELSE? NO . ARE YOU ABUSED, NEGLECTED, OR IN AN UNSAFE ENVIRONMENT? NO . ENDOCRINOLOGY: ARE YOU DIABETIC? NO . OTHER: DO YOU NEED ANY PRESCRIPTIONS? NO . IF YES, PLEASE LIST: ____ . ANY NEW PROBLEMS WITH YOUR MEDICATIONS? NO . WHEN DID YOU LAST EAT? ____ . WHEN DID YOU LAST DRINK? ____ . WHAT DID YOU LAST DRINK? ____ . NAME OF PERSON DRIVING YOU HOME? ____ . DO YOU HAVE ANY OTHER QUESTIONS OR CONCERNS NO . VITAL SIGNS WT 189.8 LBS, HT 67 IN, BMI 29.72 INDEX, BP 134/62 MM HG, HR 85 /MIN, RR 18 /MIN, TEMP 97.1 F, OXYGEN SAT % 97%, NA INITIALS AW 1025, REVIEWED BY: BV. EXAMINATION GENERAL EXAMINATION: GENERAL APPEARANCE:AWAKE,ALERT ,PLEAASANT . PSYCHAFFECT NORMAL . LUNGS:LUNG ROGERS ARE CLEAR TO AUSCULTATION BILATERALLY. GOOD MOVEMENT OF AIR . HEART:S1, S2 IN A REGULAR RATE AND RHYTHM. NO SIGNIFICANT MURMURS, RUBS OR GALLOPS NOTED . CERVICALTRIGGER POINTS: CERVICAL AND TRAPEZIUS BILAT R>L..PAIN IS AGGREVATED WITH ROJM NECK . ASSESSMENTS MYALGIA, OTHER SITE - M79.18 (PRIMARY) CHRONIC PRESCRIPTION OPIATE USE - Z79.899 TREATMENT MYALGIA, OTHER SITE CONTINUE AMITRIPTYLINE HCL TABLET, 50 MG, DIRECTED, ORALLY, 1 TAB IN AM AND 3 TABS AT BEDTIME CONTINUE TIZANIDINE HCL TABLET, 2 MG, 1/2 TABLET, ORALLY, TWICE A DAY REFILL HYDROMORPHONE HCL TABLET, 4 MG, 1/2 -1 TABLET, ORALLY, EVERY 4 HRS PRN PAIN MDD=5, 30 DAY(S), 90, REFILLS 0 NOTES: TPI NECKISTOP REGISTRY REVIEWED AND DEMONSTRATES COMPLLIANCE. (REF #[id number] ) BRINGS IN MEDICATIONS WHICH IS APPROPRIATE FOR WHAT WAS DISPENSED. RECENT URINE TOXICOLOGY REVIEWED. NO UNAUTHORIZED MEDICATIONS. NO ILLICIT SUBSTANCES AND PRESCRIBED MEDICATIONS WERE PRESENT. , URINE TOX TODAYRISKS AND BENEFITS OF NARCOTIC/OPIOD MEDICATIONS WERE REVIEWED WITH PATIENT - THIS INCLUDES BUT IS NOT LIMITED TO RISK OF DEPENDANCE/DEVELOPMENT OF ADDICTION, MOOD DISTURBANCE AND DEPRESSION, OSTEOPOROSIS, HORMONAL AND LABIDAL CHANGES, RESPIRATORY DEPRESSION AND . PATIENT IS ADVISED NOT TO DRIVE OR DRINK ALCOHOL WHILE ON THESE MEDICATIONS,. CLINICAL NOTES: TPI NECK. PREVENTIVE MEDICINE PAIN CLINIC TEACHING: MEDICATIONS PT GIVEN WRITTEN AND VERBAL PRE-PROCEDURE INSTRUCTIONS. PT VERBALIZES UNDERSTANDING OF ALL INSTRUCTIONS. KAROLINA RODRÍGUEZ 04/23/2018 11:33:57 AM > . PROCEDURE CODES FA211 ESTABILISHED PATIENT [facility] FACILITY CHARGE DISPOSITION & COMMUNICATION FOLLOW UP POST (REASON: TPI NECK) ELECTRONICALLY SIGNED BY DANIELE MCKEON ON 05/10/2018 AT 07:31 PM EST DISCLAIMER : THIS IS A VISIT SUMMARY EXTRACTED FROM THE [employer] CHART. IT IS NOT A COPY OF THE [employer] PROGRESS NOTE. MARLYN
== END ==
LOC: M PAIN 10:30
PROVIDERS: ATTEND Nurse Practitioner Family
DX: M79.18 Myalgia, other site (principal); E11.40 Type 2 diabetes mellitus with diabetic neuropathy, unspecified; J45.909 Unspecified asthma, uncomplicated; E78.5 Hyperlipidemia, unspecified; Z79.01 Long term (current) use of anticoagulants; Z79.4 Long term (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; Z79.891 Long term (current) use of opiate analgesic; Z79.899 Other long term (current) drug therapy; Z88.0 Allergy status to penicillin; Z88.1 Allergy status to other antibiotic agents; Z88.2 Allergy status to sulfonamides; Z88.5 Allergy status to narcotic agent; Z88.6 Allergy status to analgesic agent; Z88.8 Allergy status to other drugs, medicaments and biological substances; Z91.02 Food additives allergy status; Z91.040 Latex allergy status; Z98.890 Other specified postprocedural states; Z86.79 Personal history of other diseases of the circulatory system

== ENCOUNTER 2018-04-30 06:34 | Outpatient (CLI) | payer OTHER ==
[~2018-04-30] VITALS: Ht 165.1 cm; Wt 77.8 kg
[2018-04-30 06:45] VITALS: BP 147/68
[2018-04-30] MEDS ORDERED: SODIUM CHLORIDE 0.9% INJ 10 ML SYR IV SCH (09:00)
== END 2018-04-30 06:55 | disposition home or self-care (01) ==
LOC: M INFU 06:34
PROVIDERS: ATTEND Family Medicine
DX: E83.42 Hypomagnesemia (principal)

== ENCOUNTER → 2018-05-01 | Outpatient (CLI) | payer OTHER ==
[~2018-05-01] MED LIST changes: +BUPIVACAINE HCL 0.25% 10 ML VIAL As Ordered ONE; +BUPIVACAINE HCL 0.25% 30 ML VIAL As Ordered ONE; +TRIAMCINOLONE ACETONIDE SUSP 40 MG/ML VIAL (J3301) As Ordered ONE
--- NOTE | 2018-05-18 00:09 | ECWPNPC ---
PATIENT NAME: GLENN FELDER : 1960 GENDER: FEMALE VISIT DATE: 05/01/2018 DISCHARGE DATE: 05/01/18 1046 VISIT LOCKED DATE TIME: PHYSICIAN: ELLIS HECTOR MD RESOURCE: ELLIS HECTOR MD REASON FOR APPOINTMENT 1. TPI NECK HISTORY OF PRESENT ILLNESS HISTORY OF PRESENT ILLNESS: PAIN THE PATIENT DESCRIBES THE PAIN... FALL RISK SCREENING: SCREENING :NO FALLS IN THE PAST YEAR CURRENT MEDICATIONS TAKING RANITIDINE HCL 150 MG TABLET 1 TABLET ORALLY TWICE A DAY, NOTES: 04/30/18 1800 TAKING MAY SAVAGE BAGS CLEAR VELCRO CLOSER ([id number]) ICD:V55.3 CHANGE NEEDED (EDUARD) TAKING ONETOUCH ULTRA TEST - STRIP USE 1 STRIP FOUR TIMES A DAY TAKING ONETOUCH DELICA LANCETS 33G - MISCELLANEOUS USE DIRECTED FOUR TIMES A DAY TAKING MAY HAVE SAVAGE WAFERS NEW IMAGE SKIN BARRIERS FLATING FLANGES ICD: V55.3 ([id number] 2 1/2 CHANGE NEEDED (EDUARD) TAKING BABY WIPES 1 MISCELLANEOUS DIRECTED TOPICALLY PRN DX:569.62 TAKING COMPRESSION STOCKINGS 20/30 STOCKINGS 724.4 THIGH HIGHS DAILY TAKING SYMBICORT 160-4.5 MCG/ACT AEROSOL 2 PUFFS INHALATION TWICE A DAY, NOTES: 04/30/18 1800 TAKING ZOCOR 20 20MG TABLET 1 TAB(S) ORAL AT BEDTIME, NOTES: 04/30/18 0800 TAKING HEPARIN SODIUM (PORCINE) 5000 UNIT/ML SOLUTION INJECTION ONCE DAILY ON WEDNESDAYS AND FRIDAYS, NOTES: 04/30/18 0800 TAKING ONE TOUCH ULTRA SYSTEM KIT METER DIRECTED ONE TOUCH ULTRA MINI-METER ONLY DX: E11.9, E11.21, E11.22, E11.65 TAKING ASTELIN 137 MCG/SPRAY SOLUTION 1 PUFF IN EACH NOSTRIL NASALLY TWICE A DAY, NOTES: 04/30/18 1800 TAKING DOCUSATE SODIUM 50 MG/5ML LIQUID 5 ML NEEDED ORALLY BID PRN CONSTIPATIO, NOTES: 04/30/18 1800 TAKING MAY HAVE - - DIRECTED ABDOMINAL BINDER WITH STOMA CUT-OUT WEAR DAILY FOR ABDOMINAL HERNIA PAIN. DX: K43.9 TAKING SYRINGE/NEEDLE (DISP) 1CC DIABETIC 1 SQ FOUR TIMES DAILY/DX:E11.9 IDDM TAKING SYRINGE 25G X 1 MISCELLANEOUS DIRECTED INTRAMUSCULAR ONCE DAILY; ICD:R11.0 TAKING BD SYRINGE/NEEDLE 23G X 1 MISCELLANEOUS 1 SYRINGE INTRAMUSCULARLY TWICE DAILY DX:R11.0 TAKING BD PEN NEEDLE ULTRAFINE 29G X 12.7MM MISCELLANEOUS DIRECTED TOPICALLY DAILY TAKING ONETOUCH LANCETS DELICA LANCET 1 SUBCUTANEOUSLY 4 TIMES A DAY/DX:E11.90 IDDM TAKING A & D ZINC OXIDE - CREAM APPLY TO PERINEAL AREA AFTER EACH BM EXTERNALLY DIRECTED TAKING ZOFRAN 4 MG/2ML SOLUTION 2 OR 4 ML IM (MEDICALLY NECESSARY) BID AT LEAST 8H APART, NOTES: 04/30/18 1800 TAKING NEEDLE (DISP) 30G X 1 MISCELLANEOUS DX: E11.9 FOR LEVEMIR PEN VITRO DAILY TAKING NASACORT AQ 55 MCG/ACT AEROSOL SOLUTION 2 PUFF IN EACH NOSTRIL NASALLY ONCE A DAY, NOTES: 04/30/18 1800 TAKING ONE TOUCH ULTRA 2 LANCET 1 LANCET LANCET ICD:250.02 IDDM FOUR TIMES DAILY TAKING BLOOD GLUCOSE TEST STRIP - STRIP 1 STRIP IN VITRO 4 TIMES DAILY TAKING SIMETHICONE 80 MG TABLET CHEWABLE 2 TABLETS AFTER MEALS AND AT BEDTIME NEEDED ORALLY THREE TIMES A DAY NEEDED FOR ABDOMINAL PAIN AND DISTENTION, NOTES: 04/30/18 1800 TAKING SUCRALFATE 1 GM TABLET CRUSH 1 TABLET AND MIX INTO A SLURRY WITH 10-15MLS OF WATER ORALLY TWICE A DAY, NOTES: 04/30/18 1800 TAKING ALCOHOL PREPS _ WIPE DX: E11.9 TOPICAL 5 TIMES A DAY NEEDED FOR INJECTIONS TAKING LOPID 600 MG TABLET 1 TABLET ORALLY DAILY, NOTES: 04/30/18 0800 TAKING LACTULOSE 20 GM/30ML SOLUTION 15 ML ORALLY THREE TIMES DAILY, NOTES: 04/30/18 1800 TAKING METOCLOPRAMIDE HCL 5 MG/5ML SOLUTION 10 MG (10ML) ORALLY 30 MINUTES BEFORE MEALS AND AT BEDTIME NEEDED, NOTES: 04/30/18 1800 TAKING SPIRIVA RESPIMAT 1.25 MCG/ACT AEROSOL SOLUTION 2 PUFFS INHALATION TWICE DAILY, NOTES: 04/30/18 0600 TAKING CETIRIZINE HCL 10 MG TABLET 1 TABLET ORALLY ONCE A DAY, NOTES: 04/30/18 1800 TAKING KLOR-CON M20 20 MEQ TABLET EXTENDED RELEASE 1 TABLET ORALLY ONCE A DAY, NOTES: 04/30/18 0800 TAKING NOVOLOG MIX 70/30 (70-30) 100 UNIT/ML SUSPENSION 35 UNITS SUBCUTANEOUS DAILY AT THE MIDDAY MEAL, NOTES: 04/30/18 1200 TAKING MIRALAX 1 SUSPENSION 17 GRAMS ORALLY THREE TIMES DAILY, NOTES: 04/30/18 1800 TAKING LAC-HYDRIN 12 % LOTION 1 APPLICATION TO AFFECTED AREA EXTERNALLY TWICE A DAY TAKING TOUJEO SOLOSTAR 300 UNIT/ML SOLUTION PEN-INJECTOR SUBCUTANEOUS , NOTES: 04/30/18 0800 TAKING AMITRIPTYLINE HCL 50 MG TABLET DIRECTED ORALLY 1 TAB IN AM AND 3 TABS AT BEDTIME, NOTES: 04/30/18 1800 TAKING TIZANIDINE HCL 2 MG TABLET 1/2 TABLET ORALLY TWICE A DAY, NOTES: 04/30/18 1800 TAKING HYDROMORPHONE HCL 4 MG TABLET 1/2 -1 TABLET ORALLY EVERY 4 HRS PRN PAIN MDD=5, NOTES: 0400 TAKING NYSTATIN POWDER [id number] UNIT/GM POWDER APPLY EXTERNALLY TWICE A DAY TO SKIN SURROUNDING STOMA INTIL HEALED, NOTES: NEEDED TAKING CLOTRIMAZOLE-BETAMETHASONE 1-0.05 % CREAM 1 APPLICATION TO AFFECTED AREA TOPICALLY TO LEFT ABDOMEN TWICE A DAY, NOTES: 04/30/18 1800 NOT-TAKING MAGNESIUM _ _ INFUSION INFUSION ONCE WEEKLY, NOTES: ON HOLD FOR NOW NOT-TAKING SIMETHICONE 125 MG TABLET CHEWABLE 1 TABLET NEEDED ORALLY FOUR TIMES A DAY PRN ABDOMINAL DISTENTION OR PAIN, NOTES: PRN NOT-TAKING LORATADINE 10 MG TABLET 1 TABLET ORALLY ONCE A DAY, NOTES: PRN NOT-TAKING LIDOCAINE 5 % OINTMENT 1 APPLICATION TO AFFECTED AREA NEEDED EXTERNALLY THREE TIMES A DAY TO BACK OF HEAD/NECK PRN PAIN MEDICATION LIST REVIEWED AND RECONCILED WITH THE PATIENT PAST MEDICAL HISTORY DM II WITH NEUROPATHY, HBA1C GOAL IS 8.0 FOR NOW B/C OF RISK OF HYPOGLYCEMIA, CONSIDER LOWER IF CONSISTENTLY ACHIEVED ASTHMA HYPERLIPIDEMIA GERD NEPHROLITHIASIS 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 ALLERGIC RHINITIS CHRONIC MAXILLARY SINUSITIS CHRONIC HEADACHES (PAIN MANAGEMENT) CHRONIC PAIN SYNDROME/RSD (PAIN MANAGEMENT) PERSONAL HISTORY OF VENOUS THROMBOSIS AND EMBOLISM (RESOLVED 12/19/2009) ALLERGIES IODINE: NERVES, TIGHT MUSCLES: SIDE EFFECTS GABAPENTIN: NERVOUS SYSTEM,SHAKEY: SIDE EFFECTS GABITRIL: NERVOUS: SIDE EFFECTS KETOROLAC TROMETHAMINE: VOMITING: SIDE EFFECTS MEPERIDINE HCL: OUT OF BODY EXPERIENCE: SIDE EFFECTS MORPHINE SULFATE: SEVERE H/A WITH BIG DOSE: SIDE EFFECTS PROMETHAZINE HCL: OUT OF BODY EXPERIENCE: SIDE EFFECTS TRAMADOL: SHAKES: SIDE EFFECTS OXYCODONE: VOMITING,HIVES: ALLERGY PENICILLIN (FOR ALLERGIES USE ONLY): HIVES: ALLERGY FENTANYL: NERVOUS: SIDE EFFECTS DROPERIDOL: OUT OF BODY: SIDE EFFECTS CODEINE SULFATE: OUT OF BODY EXPERIENCE: SIDE EFFECTS PHENOTHIAZINES: NERVOUS SYSTEM: SIDE EFFECTS QUINOLONES- CIPRO,TEQUIN: HIVES: ALLERGY RED FOOD DYE: RASH: ALLERGY LIDODERM (LICOCANINE): HEART RACES: SIDE EFFECTS SULFA: HIVES: ALLERGY ASPIRIN: HIVES: ALLERGY ATIVAN: HALLUCINATIONS: SIDE EFFECTS AZITHROMYCIN: HIVES: ALLERGY BACLOFEN: AFFECTED NERVOUS SYT: SIDE EFFECTS LYRICA: SHAKES, EVERYTHING IS BLACK: SIDE EFFECTS VICODIN: CONFUSION: SIDE EFFECTS MACROBID: HIVES, BLURRED VISION: ALLERGY READI-CAT: HIVES: ALLERGY ALBUTEROL SULFATE: COUGH: ALLERGY GASTROGRAFIN: ONLY 1 BOTTLE PER TEST DAY (CAN NOT TOLERATE ANY MORE THAN 1 BOTTLE): CONTRAINDICATION LATEX (FOR ALLERGY USE ONLY): DIFFICULTY : ALLERGY SURGICAL HISTORY NO PERSONAL HX OF SEVERE REACTION TO ANESTHESIA, HER BROTHER HAS "HAD HIS THROAT CLOSE OFF TWO DIFFERENT TIMES" WITH GENERAL ANESTHESIA SCALP TUMOR 1984 LUMPECTOMIES - REPORTED BENIGN BILATERAL 16 AND 21 YO TOTAL HYSTERECTOMY-DUE TO OVARIAN CYSTS/MASS 21 YO BILAT SYMPATHECTOMY 1987 AV FISTULA REPAIR L LEG 1989 CHOLECYSTECTOMY LATE SBO 2001 ABDOMINAL HERNIA REPAIR 2004 VENTRAL HERNIA REPAIR 2009 DORSAL COLUMN STIMULATOR TAKEN OUT AND NEW ONE IMPLANTED 02/21 SMALL PORTION OF SMALL BOWEL RESECTED AND VENTRAL HERNIA REPAIRS (ANDREASJACQUELINE) 06/2010 ILEOSTOMY-EDUARD 07/28/12 CYST REMOVED RIGHT NOSTRIL- DR RAJPUT. 09/17/12 REPAIR TWO HERNIAS AND REPAIR OF STOMA 03/26 HERNIA REPAIR X2 08/31/13 PARASTOMAL HERNIA REPAIR- EDUARD 06/26 HERNIA AND STOMA REPAIR-EDUARD 06/11 PERASTOMAL HERNIA REPAIR, WITH A SMALL BOWEL OBSTRUCTION 03/2017 INFUSAPORT PLACMENT ([facility]) 08/2017 HERNIA REPAIR X4 STOMA REVERSAL 10/2017 BATTERY REPLACEMENT FOR STIMULATOR 02/2018 FAMILY HISTORY FATHER: ALIVE, CANCER MOTHER: , OF MYELODYSPLASTIC SYNDROME; WAS ALSO KNOWN TO HAVE CAD SIBLINGS: ALIVE 1 BROTHER(S) - HEALTHY. SOCIAL HISTORY GENERAL: TOBACCO USE ARE YOU A:NONSMOKER NEVER SMOKER ALCOHOL SCREENING DID YOU HAVE A DRINK CONTAINING ALCOHOL IN THE PAST YEAR?NO POINTS0 INTERPRETATIONNEGATIVE RECREATIONAL DRUG USE DRUG USE?NO CAFFEINE CAFFEINE USE?NO SEXUAL HX HAD SEX IN THE LAST 12 MONTHS (VAGINAL, ORAL, OR ANAL)?NO HAVE YOU EVER HAD AN STD?NO HIV / HEP-C SCREENING HIV TEST OFFERED TO PATIENT:YES DATE OFFERED:07/18/2016 TEST ACCEPTED:NO HEP-C TEST OFFERED TO PATIENT:YES DATE OFFERED:07/18/2016 REASON:PATIENT DECLINED TEST ACCEPTED:NO REASON:PATIENT DECLINED YARSANISM [id number] [employer]. 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 DIET: NO CONCENTRATED SWEETS., CARBOHYDRATE CONTROLLED. EXERCISE: NO REGULAR EXERCISE. MARITAL STATUS: SINGLE. OTHERS AT HOME: NONE. NEW PATIENT PAIN DIARY FROM 0-10, WHAT LEVEL IS YOUR PAIN TODAY?10 PAIN CLINIC PFS, CLERGY, PUBLIC HEALTH REFERRALS PFS REFERRAL NEEDED?NO CLERGY REFERRAL NEEDED?NO PUBLIC HEALTH REFERRAL NEEDED?NO HAS THE PATIENT BEEN EDUCATED REGARDING HIS/HER PLAN OF CARE?YES HAS THE PATIENT BEEN EDUCATED REGARDING PAIN, THE RISK FOR PAIN, THE IMPORTANCE OF EFFECTIVE PAIN MANAGEMENT, AND THE PAIN ASSESSMENT PROCESS?YES ADVANCE DIRECTIVE ADVANCE DIRECTIVE DISCUSSED WITH PATIENT:YES HCP - BROTHER (LUCAS); COPY PLACED IN RECORDS REVIEWED WITH PATIENT 05/01/18 3949 . HOSPITALIZATION/MAJOR DIAGNOSTIC PROCEDURE [facility]- SMALL BOWEL OBSTRUCTION, WAS IN HOSPITAL 11 DAYS 09/2015 [facility]- SMALL BOWEL OBSTRUCTION, WAS IN HOSPITAL IN 5 DAYS 03/2016 [facility]- SMALL BOWEL OBSTRUCTION 04/12/16-04/17/16 [facility]- SMALL BOWEL OBSTRUCTION 06/2016 [facility]- SMALL BOWEL OBSTRUCTION 03/17/17-04/18/17 REVIEW OF SYSTEMS REVIEWED BY: PROVIDER: . CONSTITUTIONAL: ANY CHANGE IN YOUR MEDICAL CONDITION? NO . CHILLS NO . FEVER NO . INFECTION: DO YOU HAVE NEW INFECTIONS? NO . DO YOU HAVE HISTORY OF MRSA? NO . MUSCULOSKELETAL: ANY NEW PATTERNS OF PAIN OR NUMBNESS? NO . GASTROENTEROLOGY: ANY NEW CHANGE IN BOWEL CONTROL? NO . GENITOURINARY: ANY NEW CHANGE IN BLADDER CONTROL? NO . IS THERE A CHANCE YOU COULD BE ? NO . HEMATOLOGY/LYMPH: DO YOU TAKE ANY BLOOD THINNERS? (FOR EXAMPLE- COUMADIN, PLAVIX, AGGRENOX, PLATEL, PRADAXA, OR XARELTO) YES, HEPARIN . WHEN WAS YOUR LAST DOSE? DATE: 04/30/18 TIME: 0800 . NEUROLOGY: HAVE YOU FALLEN IN THE PAST 12 MONTHS? NO . ANY NEW EXTREMITY NUMBNESS OR WEAKNESS? NO . CARDIOLOGY: DO YOU HAVE A PACEMAKER OR DEFIBRILLATOR? NO . RESPIRATORY: HAVE YOU BEEN SICK IN THE PAST WEEK? NO . FEVER NO . FLU LIKE SYMPTOMS? NO . COUGH NO . INTEGUMENTARY: DO YOU HAVE ANY RASHES OR OPEN SORES? NO . ALLERGIC/IMMUNO: ARE YOU ALLERGIC TO IV DYE? YES, IV DYE . ANY NEW ALLERGIES? NO . PSYCHIATRIC: DO YOU HAVE THOUGHTS OF HURTING YOURSELF OR SOMEONE ELSE? NO . ARE YOU ABUSED, NEGLECTED, OR IN AN UNSAFE ENVIRONMENT? NO . ENDOCRINOLOGY: ARE YOU DIABETIC? YES, FSBS 176 AT 0400 THIS AM . OTHER: DO YOU NEED ANY PRESCRIPTIONS? NO . IF YES, PLEASE LIST: ____ . ANY NEW PROBLEMS WITH YOUR MEDICATIONS? NO . WHEN DID YOU LAST EAT? ____04/30/181999 . WHEN DID YOU LAST DRINK? ____04/30/18 2300 . WHAT DID YOU LAST DRINK? ____WATER . NAME OF PERSON DRIVING YOU HOME? ____FATHER . DO YOU HAVE ANY OTHER QUESTIONS OR CONCERNS NO . VITAL SIGNS WT 188.6 LBS, HT 67 IN, BMI 29.54 INDEX, BP 122/77 MM HG, HR 82 /MIN, RR 18 /MIN, TEMP 96.9 F, OXYGEN SAT % 99%, BLOOD GLUCOSE LEVEL 176 THIS AM PER PATIENT, SAFE IN ENV? (Y/N) YES, NA INITIALS HI 09:11, REVIEWED BY: DENISE. ASSESSMENTS MYALGIA, OTHER SITE - M79.18 (PRIMARY) PROCEDURES PN TRIGGER POINT INJECTION WITH STEROIDS PRE PROCEDURE DIAGNOSIS 1. MYALGIA 2. PAIN AT BILATERAL NECK AREA AND BILATERAL SHOULDER AREA POST PROCEDURE DIAGNOSIS 1. MYALGIA 2. PAIN AT BILATERAL NECK AREA AND BILATERAL SHOULDER AREA PROCEDURE TRIGGER POINT INJECTION AT BILATERAL NECK AREA AND BILATERAL SHOULDER AREA SURGEON DR. ELLIS HECTOR INTERNAL GRINDER TENDER NONE ANESTHESIA LOCAL PRE PROCEDURE NOTE THE PATIENT HAS A HISTORY OF CHRONIC PAIN AT THE RIGHT AND LEFT NECK AREA AND RIGHT AND LEFT SHOULDER AREA. I EVALUATE THE PATIENT AND REVIEWED THE CHART. THERE IS EVIDENCE OF BANDS OF TISSUE WITH RESTRICTION OF MOVEMENT AND PRESENCE OF TRIGGER POINT AT THE AFFECTED AREA. I WENT OVER THE RISKS, ALTERNATIVES, AND BENEFITS ASSOCIATED WITH THIS PROCEDURE. THE PATIENT WOULD LIKE TO PROCEED AND GIVE CONSENT TO PERFORMED THE PROCEDURE. THE PATIENT DENIES UNEXPLAINABLE WEIGHT LOSS, FEVER, CHILLS, OR NEW CHANGES IN URINARY OR BOWEL CONTROL DESCRIPTION OF PROCEDURE THE PATIENT WAS BROUGHT TO THE PROCEDURE ROOM AND PLACED IN THE SITTING POSITION. THE AREA WAS CLEANED WITH ALCOHOL. THE PROCEDURE WAS DONE USING ASEPTIC STERILE TECHNIQUE. I CHECKED LATERALITY AND THE LEVEL WHERE THE PROCEDURE WAS GOING TO BE PERFORMED WITH THE PATIENT AND THE SUPPORTING STAFF AT THE MOMENT OF THE TIME OUT IN THE PROCEDURE ROOM. USING A 25-GAUGE NEEDLE, TRIGGER POINTS WERE INJECTED AT THE RIGHT AND LEFT NECK AREA AND RIGHT AND LEFT SHOULDER AREA WITH A TOTAL OF 40 ML OF BUPIVACAINE 0.25% AND KENALOG 40 MG. THERE WAS NO EVIDENCE OF BLOOD, PARESTHESIA OR CEREBROSPINAL FLUID DURING THE PROCEDURE. THE PATIENT WAS SENT TO THE RECOVERY ROOM. THE PATIENT WAS MOVING THE EXTREMITIES AND DOING WELL. THERE WAS NO COMPLICATION DURING THE PROCEDURE POST PROCEDURE NOTE THE PATIENT WILL BE SEEN IN A FOLLOW UP IN THE NEXT FEW WEEKS. INSTRUCTIONS WERE GIVEN, QUESTIONS WERE ANSWERED, AND THE PATIENT EXPRESSED UNDERSTANDING AND AGREES WITH THE PLAN. I, CYNTHIA CUENCA, DOCUMENTED THE ABOVE INFORMATION ACTING A SCRIBE FOR DR. HECTOR. I HAVE REVIEWED THE ABOVE DOCUMENT, WRITTEN BY CYNTHIA APPIAH AND I VERIFY THAT IT IS ACCURATE. PROCEDURE CODES [id number] INJECT TRIGGER POINTS 3/> DISPOSITION & COMMUNICATION FOLLOW UP 3 WEEKS ELECTRONICALLY SIGNED BY ELLIS HECTOR MD, MD ON 05/17/2018 AT 05:53 PM EST DISCLAIMER : THIS IS A VISIT SUMMARY EXTRACTED FROM THE [employer] CHART. IT IS NOT A COPY OF THE [employer] PROGRESS NOTE. MARLYN
== END ==
LOC: M PAIN 08:30
PROVIDERS: ATTEND Anesthesiology
DX: M79.18 Myalgia, other site (principal); M54.2 Cervicalgia; M25.511 Pain in right shoulder; M25.512 Pain in left shoulder; E11.40 Type 2 diabetes mellitus with diabetic neuropathy, unspecified; J45.909 Unspecified asthma, uncomplicated; E78.5 Hyperlipidemia, unspecified; Z79.01 Long term (current) use of anticoagulants; Z79.4 Long term (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; Z79.899 Other long term (current) drug therapy; Z88.0 Allergy status to penicillin; Z88.1 Allergy status to other antibiotic agents; Z88.2 Allergy status to sulfonamides; Z88.5 Allergy status to narcotic agent; Z88.6 Allergy status to analgesic agent; Z88.8 Allergy status to other drugs, medicaments and biological substances; Z91.02 Food additives allergy status; Z91.040 Latex allergy status; Z90.710 Acquired absence of both cervix and uterus; Z86.79 Personal history of other diseases of the circulatory system
CPT/HCPCS: 20553; J3301

== ENCOUNTER → 2018-05-11 | Outpatient (CLI) | payer OTHER ==
[~2018-05-11] MED LIST changes: -BUPIVACAINE HCL 0.25% 10 ML VIAL As Ordered ONE; -BUPIVACAINE HCL 0.25% 30 ML VIAL As Ordered ONE; -TRIAMCINOLONE ACETONIDE SUSP 40 MG/ML VIAL (J3301) As Ordered ONE
[2018-05-11 13:46] LABS: MALB URINE SIEMENS < 5.0 MG/L; MAU/CREAT RATIO 12.8 MCG/MG (0.0-30.0)
== END ==
LOC: M LAB 12:19
PROVIDERS: ATTEND Family Medicine
DX: E11.9 Type 2 diabetes mellitus without complications (principal)

== ENCOUNTER → 2018-05-15 | Outpatient (CLI) | payer OTHER ==
--- NOTE | 2018-05-25 00:05 | ECWPNPC ---
PATIENT NAME: GLENN FELDER : 1960 GENDER: FEMALE VISIT DATE: 05/15/2018 DISCHARGE DATE: 05/15/18931 VISIT LOCKED DATE TIME: PHYSICIAN: NAVNEET BRAY RESOURCE: NAVNEET BRAY REASON FOR APPOINTMENT 1. POST TPI HISTORY OF PRESENT ILLNESS HISTORY OF PRESENT ILLNESS: HERE FOR F/U OF CHRONIC NEK PAIN.HAD TPI ON 05-01-18.REPORTING 100% IMPROVEMENT THAT CONTINUES TODAY.RATING PAIN VAS 0/10. PAIN THE PATIENT DESCRIBES THE PAIN... FALL RISK SCREENING: SCREENING :NO FALLS IN THE PAST YEAR CURRENT MEDICATIONS TAKING RANITIDINE HCL 150 MG TABLET 1 TABLET ORALLY TWICE A DAY TAKING MAY SAVAGE BAGS CLEAR VELCRO CLOSER ([id number]) ICD:V55.3 CHANGE NEEDED (EDUARD) TAKING ONETOUCH ULTRA TEST - STRIP USE 1 STRIP FOUR TIMES A DAY TAKING MAY HAVE SAVAGE WAFERS NEW IMAGE SKIN BARRIERS FLATING FLANGES ICD: V55.3 ([id number] 2 1/2 CHANGE NEEDED (EDUARD) TAKING BABY WIPES 1 MISCELLANEOUS DIRECTED TOPICALLY PRN DX:569.62 TAKING COMPRESSION STOCKINGS 20/30 STOCKINGS 724.4 THIGH HIGHS DAILY TAKING SYMBICORT 160-4.5 MCG/ACT AEROSOL 2 PUFFS INHALATION TWICE A DAY TAKING ZOCOR 20 20MG TABLET 1 TAB(S) ORAL AT BEDTIME TAKING HEPARIN SODIUM (PORCINE) 5000 UNIT/ML SOLUTION INJECTION ONCE DAILY ON WEDNESDAYS AND FRIDAYS TAKING ONE TOUCH ULTRA SYSTEM KIT METER DIRECTED ONE TOUCH ULTRA MINI-METER ONLY DX: E11.9, E11.21, E11.22, E11.65 TAKING ASTELIN 137 MCG/SPRAY SOLUTION 1 PUFF IN EACH NOSTRIL NASALLY TWICE A DAY TAKING DOCUSATE SODIUM 50 MG/5ML LIQUID 5 ML NEEDED ORALLY BID PRN CONSTIPATIO TAKING MAY HAVE - - DIRECTED ABDOMINAL BINDER WITH STOMA CUT-OUT WEAR DAILY FOR ABDOMINAL HERNIA PAIN. DX: K43.9 TAKING SYRINGE/NEEDLE (DISP) 1CC DIABETIC 1 SQ FOUR TIMES DAILY/DX:E11.9 IDDM TAKING SYRINGE 25G X 1 MISCELLANEOUS DIRECTED INTRAMUSCULAR ONCE DAILY; ICD:R11.0 TAKING BD SYRINGE/NEEDLE 23G X 1 MISCELLANEOUS 1 SYRINGE INTRAMUSCULARLY TWICE DAILY DX:R11.0 TAKING BD PEN NEEDLE ULTRAFINE 29G X 12.7MM MISCELLANEOUS DIRECTED TOPICALLY DAILY TAKING ONETOUCH LANCETS DELICA LANCET 1 SUBCUTANEOUSLY 4 TIMES A DAY/DX:E11.90 IDDM TAKING A & D ZINC OXIDE - CREAM APPLY TO PERINEAL AREA AFTER EACH BM EXTERNALLY DIRECTED TAKING ZOFRAN 4 MG/2ML SOLUTION 2 OR 4 ML IM (MEDICALLY NECESSARY) BID AT LEAST 8H APART TAKING NEEDLE (DISP) 30G X 1 MISCELLANEOUS DX: E11.9 FOR LEVEMIR PEN VITRO DAILY TAKING NASACORT AQ 55 MCG/ACT AEROSOL SOLUTION 2 PUFF IN EACH NOSTRIL NASALLY ONCE A DAY TAKING ONE TOUCH ULTRA 2 LANCET 1 LANCET LANCET ICD:250.02 IDDM FOUR TIMES DAILY TAKING BLOOD GLUCOSE TEST STRIP - STRIP 1 STRIP IN VITRO 4 TIMES DAILY TAKING ALCOHOL PREPS _ WIPE DX: E11.9 TOPICAL 5 TIMES A DAY NEEDED FOR INJECTIONS TAKING LOPID 600 MG TABLET 1 TABLET ORALLY DAILY TAKING LACTULOSE 20 GM/30ML SOLUTION 15 ML ORALLY THREE TIMES DAILY TAKING METOCLOPRAMIDE HCL 5 MG/5ML SOLUTION 10 MG (10ML) ORALLY 30 MINUTES BEFORE MEALS AND AT BEDTIME NEEDED TAKING SPIRIVA RESPIMAT 1.25 MCG/ACT AEROSOL SOLUTION 2 PUFFS INHALATION TWICE DAILY TAKING CETIRIZINE HCL 10 MG TABLET 1 TABLET ORALLY ONCE A DAY TAKING KLOR-CON M20 20 MEQ TABLET EXTENDED RELEASE 1 TABLET ORALLY ONCE A DAY TAKING LAC-HYDRIN 12 % LOTION 1 APPLICATION TO AFFECTED AREA EXTERNALLY TWICE A DAY TAKING TOUJEO SOLOSTAR 300 UNIT/ML SOLUTION PEN-INJECTOR SUBCUTANEOUS TAKING TIZANIDINE HCL 2 MG TABLET 1/2 TABLET ORALLY TWICE A DAY TAKING HYDROMORPHONE HCL 4 MG TABLET 1/2 -1 TABLET ORALLY EVERY 4 HRS PRN PAIN MDD=5 TAKING NYSTATIN POWDER [id number] UNIT/GM POWDER APPLY EXTERNALLY TWICE A DAY TO SKIN SURROUNDING STOMA INTIL HEALED TAKING CLOTRIMAZOLE-BETAMETHASONE 1-0.05 % CREAM 1 APPLICATION TO AFFECTED AREA TOPICALLY TO LEFT ABDOMEN TWICE A DAY TAKING AMITRIPTYLINE HCL 50 MG TABLET DIRECTED ORALLY 1 TAB IN AM AND 3 TABS AT BEDTIME TAKING NOVOLOG MIX 70/30 (70-30) 100 UNIT/ML SUSPENSION 38 UNITS SUBCUTANEOUS DAILY AT THE MIDDAY MEAL TAKING ONETOUCH DELICA LANCETS 33G - MISCELLANEOUS USE DIRECTED FOUR TIMES A DAY TAKING SUCRALFATE 1 GM TABLET CRUSH 1 TABLET AND MIX INTO A SLURRY WITH 10-15MLS OF WATER ORALLY TWICE A DAY TAKING SIMETHICONE 80 MG TABLET CHEWABLE 2 TABLETS AFTER MEALS AND AT BEDTIME NEEDED ORALLY THREE TIMES A DAY NEEDED FOR ABDOMINAL PAIN AND DISTENTION TAKING MIRALAX 1 SUSPENSION 17 GRAMS ORALLY TWICE DAILY NOT-TAKING MAGNESIUM _ _ INFUSION INFUSION ONCE WEEKLY, NOTES: ON HOLD FOR NOW NOT-TAKING SIMETHICONE 125 MG TABLET CHEWABLE 1 TABLET NEEDED ORALLY FOUR TIMES A DAY PRN ABDOMINAL DISTENTION OR PAIN, NOTES: PRN NOT-TAKING LORATADINE 10 MG TABLET 1 TABLET ORALLY ONCE A DAY, NOTES: PRN NOT-TAKING LIDOCAINE 5 % OINTMENT 1 APPLICATION TO AFFECTED AREA NEEDED EXTERNALLY THREE TIMES A DAY TO BACK OF HEAD/NECK PRN PAIN MEDICATION LIST REVIEWED AND RECONCILED WITH THE PATIENT PAST MEDICAL HISTORY DM II WITH NEUROPATHY, HBA1C GOAL IS 8.0 FOR NOW B/C OF RISK OF HYPOGLYCEMIA, CONSIDER LOWER IF CONSISTENTLY ACHIEVED ASTHMA HYPERLIPIDEMIA GERD NEPHROLITHIASIS 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 ALLERGIC RHINITIS CHRONIC MAXILLARY SINUSITIS CHRONIC HEADACHES (PAIN MANAGEMENT) CHRONIC PAIN SYNDROME/RSD (PAIN MANAGEMENT) PERSONAL HISTORY OF VENOUS THROMBOSIS AND EMBOLISM (RESOLVED 12/19/2009) ALLERGIES IODINE: NERVES, TIGHT MUSCLES: SIDE EFFECTS GABAPENTIN: NERVOUS SYSTEM,SHAKEY: SIDE EFFECTS GABITRIL: NERVOUS: SIDE EFFECTS KETOROLAC TROMETHAMINE: VOMITING: SIDE EFFECTS MEPERIDINE HCL: OUT OF BODY EXPERIENCE: SIDE EFFECTS MORPHINE SULFATE: SEVERE H/A WITH BIG DOSE: SIDE EFFECTS PROMETHAZINE HCL: OUT OF BODY EXPERIENCE: SIDE EFFECTS TRAMADOL: SHAKES: SIDE EFFECTS OXYCODONE: VOMITING,HIVES: ALLERGY PENICILLIN (FOR ALLERGIES USE ONLY): HIVES: ALLERGY FENTANYL: NERVOUS: SIDE EFFECTS DROPERIDOL: OUT OF BODY: SIDE EFFECTS CODEINE SULFATE: OUT OF BODY EXPERIENCE: SIDE EFFECTS PHENOTHIAZINES: NERVOUS SYSTEM: SIDE EFFECTS QUINOLONES- CIPRO,TEQUIN: HIVES: ALLERGY RED FOOD DYE: RASH: ALLERGY LIDODERM (LICOCANINE): HEART RACES: SIDE EFFECTS SULFA: HIVES: ALLERGY ASPIRIN: HIVES: ALLERGY ATIVAN: HALLUCINATIONS: SIDE EFFECTS AZITHROMYCIN: HIVES: ALLERGY BACLOFEN: AFFECTED NERVOUS SYT: SIDE EFFECTS LYRICA: SHAKES, EVERYTHING IS BLACK: SIDE EFFECTS VICODIN: CONFUSION: SIDE EFFECTS MACROBID: HIVES, BLURRED VISION: ALLERGY READI-CAT: HIVES: ALLERGY ALBUTEROL SULFATE: COUGH: ALLERGY GASTROGRAFIN: ONLY 1 BOTTLE PER TEST DAY (CAN NOT TOLERATE ANY MORE THAN 1 BOTTLE): CONTRAINDICATION LATEX (FOR ALLERGY USE ONLY): DIFFICULTY : ALLERGY SURGICAL HISTORY NO PERSONAL HX OF SEVERE REACTION TO ANESTHESIA, HER BROTHER HAS "HAD HIS THROAT CLOSE OFF TWO DIFFERENT TIMES" WITH GENERAL ANESTHESIA SCALP TUMOR 1984 LUMPECTOMIES - REPORTED BENIGN BILATERAL 16 AND 21 YO TOTAL HYSTERECTOMY-DUE TO OVARIAN CYSTS/MASS 21 YO BILAT SYMPATHECTOMY 1987 AV FISTULA REPAIR L LEG 1988 CHOLECYSTECTOMY LATE SBO 2001 ABDOMINAL HERNIA REPAIR 2004 VENTRAL HERNIA REPAIR 2009 DORSAL COLUMN STIMULATOR TAKEN OUT AND NEW ONE IMPLANTED 02/21 SMALL PORTION OF SMALL BOWEL RESECTED AND VENTRAL HERNIA REPAIRS (GOESSLIN) 06/2010 ILEOSTOMY-EDUARD 07/28/12 CYST REMOVED RIGHT NOSTRIL- DR RAJPUT. 09/17/12 REPAIR TWO HERNIAS AND REPAIR OF STOMA 03/26 HERNIA REPAIR X2 08/31/13 PARASTOMAL HERNIA REPAIR- EDUARD 06/26 HERNIA AND STOMA REPAIR-EDUARD 06/11 PERASTOMAL HERNIA REPAIR, WITH A SMALL BOWEL OBSTRUCTION 03/2017 INFUSAPORT PLACMENT ([facility]) 08/2017 HERNIA REPAIR X4 STOMA REVERSAL 10/2017 BATTERY REPLACEMENT FOR STIMULATOR 02/2018 FAMILY HISTORY FATHER: ALIVE, CANCER MOTHER: , OF MYELODYSPLASTIC SYNDROME; WAS ALSO KNOWN TO HAVE CAD SIBLINGS: ALIVE 1 BROTHER(S) - HEALTHY. SOCIAL HISTORY GENERAL: TOBACCO USE ARE YOU A:NONSMOKER NEVER SMOKER ALCOHOL SCREENING DID YOU HAVE A DRINK CONTAINING ALCOHOL IN THE PAST YEAR?NO POINTS0 INTERPRETATIONNEGATIVE RECREATIONAL DRUG USE DRUG USE?NO CAFFEINE CAFFEINE USE?NO SEXUAL HX HAD SEX IN THE LAST 12 MONTHS (VAGINAL, ORAL, OR ANAL)?NO HAVE YOU EVER HAD AN STD?NO HIV / HEP-C SCREENING HIV TEST OFFERED TO PATIENT:YES DATE OFFERED:07/18/2016 TEST ACCEPTED:NO REASON:PATIENT DECLINED HEP-C TEST OFFERED TO PATIENT:YES DATE OFFERED:07/18/2016 TEST ACCEPTED:NO REASON:PATIENT DECLINED JAIN [id number] [employer]. EDUCATION LEVEL OF EDUCATION:[employer] 8TH GRADE LEARNING BARRIERS / SPECIAL NEEDS CHANGE FROM LAST VISIT?NO BARRIERS TO LEARNING?NO HEARING IMPAIRED?NO VISION IMPAIRED?YES :CORRECTIVE LENSES COGNITIVELY IMPAIRED?NO READINESS TO LEARN?YES LEARNING PREFERENCES?NO LEARNING CAPABILITIES PRESENT?YES EMOTIONAL BARRIERS?NO SPECIAL DEVICES?YES :CANE, WHEELCHAIR CHAUFFEUR AIRPORT LIMOUSINE NEEDED?NO DOMESTIC VIOLENCE DO YOU FEEL SAFE IN YOUR ENVIRONMENT?YES OCCUPATION: DISABLED. DIET: NO CONCENTRATED SWEETS., CARBOHYDRATE CONTROLLED. EXERCISE: NO REGULAR EXERCISE. MARITAL STATUS: SINGLE. OTHERS AT HOME: NONE. NEW PATIENT PAIN DIARY FROM 0-10, WHAT LEVEL IS YOUR PAIN TODAY?10 PAIN CLINIC PFS, CLERGY, PUBLIC HEALTH REFERRALS PFS REFERRAL NEEDED?NO CLERGY REFERRAL NEEDED?NO PUBLIC HEALTH REFERRAL NEEDED?NO HAS THE PATIENT BEEN EDUCATED REGARDING HIS/HER PLAN OF CARE?YES HAS THE PATIENT BEEN EDUCATED REGARDING PAIN, THE RISK FOR PAIN, THE IMPORTANCE OF EFFECTIVE PAIN MANAGEMENT, AND THE PAIN ASSESSMENT PROCESS?YES ADVANCE DIRECTIVE ADVANCE DIRECTIVE DISCUSSED WITH PATIENT:YES HCP - BROTHER (LUCAS); COPY PLACED IN RECORDS REVIEWED WITH PATIENT 05/01/18 2635 JS. HOSPITALIZATION/MAJOR DIAGNOSTIC PROCEDURE [facility]- SMALL BOWEL OBSTRUCTION, WAS IN HOSPITAL 11 DAYS 09/2015 [facility]- SMALL BOWEL OBSTRUCTION, WAS IN HOSPITAL IN 5 DAYS 03/2016 [facility]- SMALL BOWEL OBSTRUCTION 04/12/16-04/17/16 [facility]- SMALL BOWEL OBSTRUCTION 06/2016 [facility]- SMALL BOWEL OBSTRUCTION 03/17/17-04/18/17 REVIEW OF SYSTEMS REVIEWED BY: PROVIDER: NAVNEET SANABRIA . CONSTITUTIONAL: ANY CHANGE IN YOUR MEDICAL CONDITION? YES, HERNIA . CHILLS NO . FEVER NO . INFECTION: DO YOU HAVE NEW INFECTIONS? NO . DO YOU HAVE HISTORY OF MRSA? NO . MUSCULOSKELETAL: ANY NEW PATTERNS OF PAIN OR NUMBNESS? NO . GASTROENTEROLOGY: ANY NEW CHANGE IN BOWEL CONTROL? NO . GENITOURINARY: ANY NEW CHANGE IN BLADDER CONTROL? NO . IS THERE A CHANCE YOU COULD BE ? NO . HEMATOLOGY/LYMPH: DO YOU TAKE ANY BLOOD THINNERS? (FOR EXAMPLE- COUMADIN, PLAVIX, AGGRENOX, PLATEL, PRADAXA, OR XARELTO) YES, HEPARIN TO RIGHT SUBCLAVIAN INFUSAPORT . WHEN WAS YOUR LAST DOSE? DATE: TIME: . NEUROLOGY: HAVE YOU FALLEN IN THE PAST 12 MONTHS? NO . ANY NEW EXTREMITY NUMBNESS OR WEAKNESS? NO . CARDIOLOGY: DO YOU HAVE A PACEMAKER OR DEFIBRILLATOR? NO . RESPIRATORY: HAVE YOU BEEN SICK IN THE PAST WEEK? NO . FEVER NO . FLU LIKE SYMPTOMS? NO . COUGH NO . INTEGUMENTARY: DO YOU HAVE ANY RASHES OR OPEN SORES? YES, LEFT ABD X 4 DAYS. REPEAT RASH FROM A WEEK AGO LASTED 2 WEEKS PRIOR . ALLERGIC/IMMUNO: ARE YOU ALLERGIC TO IV DYE? YES . ANY NEW ALLERGIES? NO . PSYCHIATRIC: DO YOU HAVE THOUGHTS OF HURTING YOURSELF OR SOMEONE ELSE? NO . ARE YOU ABUSED, NEGLECTED, OR IN AN UNSAFE ENVIRONMENT? NO . ENDOCRINOLOGY: ARE YOU DIABETIC? YES . OTHER: DO YOU NEED ANY PRESCRIPTIONS? YES, TO DISCUSS Harish TOTH . IF YES, PLEASE LIST: ____ . ANY NEW PROBLEMS WITH YOUR MEDICATIONS? NO . WHEN DID YOU LAST EAT? ____ . WHEN DID YOU LAST DRINK? ____ . WHAT DID YOU LAST DRINK? ____ . NAME OF PERSON DRIVING YOU HOME? ____ . DO YOU HAVE ANY OTHER QUESTIONS OR CONCERNS NO . VITAL SIGNS WT 190 LBS, HT 67 IN, BMI 29.75 INDEX, BP 119/72 MM HG, HR 78 /MIN, RR 18 /MIN, TEMP 96.9 F, OXYGEN SAT % 99%, NA INITIALS SC 09:08, REVIEWED BY: EM. EXAMINATION GENERAL EXAMINATION: GENERAL APPEARANCE:AWAKE,ALERT ,PLEAASANT . PSYCHAFFECT NORMAL . LUNGS:LUNG ROGERS ARE CLEAR TO AUSCULTATION BILATERALLY. GOOD MOVEMENT OF AIR . HEART:S1, S2 IN A REGULAR RATE AND RHYTHM. NO SIGNIFICANT MURMURS, RUBS OR GALLOPS NOTED . ASSESSMENTS MYALGIA, OTHER SITE - M79.18 (PRIMARY) CHRONIC PRESCRIPTION OPIATE USE - Z79.899 TREATMENT MYALGIA, OTHER SITE REFILL TIZANIDINE HCL TABLET, 2 MG, 1/2 TABLET, ORALLY, TWICE A DAY, 30 DAY(S), 30, REFILLS 2 CONTINUE HYDROMORPHONE HCL TABLET, 4 MG, 1/2 -1 TABLET, ORALLY, EVERY 4 HRS PRN PAIN MDD=5 CONTINUE AMITRIPTYLINE HCL TABLET, 50 MG, DIRECTED, ORALLY, 1 TAB IN AM AND 3 TABS AT BEDTIME NOTES: ISTOP REGISTRY REVIEWED AND DEMONSTRATES COMPLLIANCE. (REF #[id number] ) BRINGS IN MEDICATIONS WHICH IS APPROPRIATE FOR WHAT WAS DISPENSED. RECENT URINE TOXICOLOGY REVIEWED. NO UNAUTHORIZED MEDICATIONS. NO ILLICIT SUBSTANCES AND PRESCRIBED MEDICATIONS WERE PRESENT. , RISKS AND BENEFITS OF NARCOTIC/OPIOD MEDICATIONS WERE REVIEWED WITH PATIENT - THIS INCLUDES BUT IS NOT LIMITED TO RISK OF DEPENDANCE/DEVELOPMENT OF ADDICTION, MOOD DISTURBANCE AND DEPRESSION, OSTEOPOROSIS, HORMONAL AND LABIDAL CHANGES, RESPIRATORY DEPRESSION AND . PATIENT IS ADVISED NOT TO DRIVE OR DRINK ALCOHOL WHILE ON THESE MEDICATIONS. PROCEDURE CODES FA211 ESTABILISHED PATIENT [facility] CHARGE DISPOSITION & COMMUNICATION FOLLOW UP 2 MONTHS ELECTRONICALLY SIGNED BY DANIELE MCKEON ON 05/24/2018 AT 03:48 PM EST DISCLAIMER : THIS IS A VISIT SUMMARY EXTRACTED FROM THE [employer] CHART. IT IS NOT A COPY OF THE [employer] PROGRESS NOTE. MARLYN
== END ==
LOC: M PAIN 09:00
PROVIDERS: ATTEND Nurse Practitioner Family
DX: M79.18 Myalgia, other site (principal); E11.40 Type 2 diabetes mellitus with diabetic neuropathy, unspecified; K21.9 Gastro-esophageal reflux disease without esophagitis; J30.9 Allergic rhinitis, unspecified; J32.0 Chronic maxillary sinusitis; G89.4 Chronic pain syndrome; Z86.711 Personal history of pulmonary embolism; Z86.718 Personal history of other venous thrombosis and embolism; Z90.49 Acquired absence of other specified parts of digestive tract; Z88.5 Allergy status to narcotic agent; Z88.1 Allergy status to other antibiotic agents; Z88.6 Allergy status to analgesic agent; Z88.8 Allergy status to other drugs, medicaments and biological substances; Z88.0 Allergy status to penicillin; Z91.040 Latex allergy status; Z79.891 Long term (current) use of opiate analgesic; Z79.4 Long term (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; Z79.899 Other long term (current) drug therapy; Z90.710 Acquired absence of both cervix and uterus

== ENCOUNTER 2018-05-28 08:01 | Outpatient (CLI) | payer OTHER ==
[~2018-05-28] VITALS: Ht 165.1 cm; Wt 77.8 kg
[2018-05-28 08:05] VITALS: BP 120/61
[2018-05-28] MEDS ORDERED: SODIUM CHLORIDE 0.9% INJ 10 ML SYR IV SCH (09:00)
== END 2018-05-28 08:30 | disposition home or self-care (01) ==
LOC: M INFU 08:01
PROVIDERS: ATTEND Family Medicine
DX: E83.42 Hypomagnesemia (principal); Z88.0 Allergy status to penicillin; Z88.5 Allergy status to narcotic agent; Z88.8 Allergy status to other drugs, medicaments and biological substances; Z91.018 Allergy to other foods; Z91.048 Other nonmedicinal substance allergy status; Z91.040 Latex allergy status; Z91.041 Radiographic dye allergy status

== ENCOUNTER 2018-06-08 06:25 | Outpatient (CLI) | payer OTHER ==
[~2018-06-08] VITALS: Ht 167.6 cm; Wt 77.8 kg
[2018-06-08 06:35] VITALS: BP 134/74
[2018-06-08 08:15] LABS: HEMOGLOBIN A1c 8.7 %
[2018-06-08] MEDS ORDERED: SODIUM CHLORIDE 0.9% INJ 10 ML SYR IV SCH (09:00)
== END 2018-06-08 07:15 | disposition home or self-care (01) ==
LOC: M INFU 06:25
PROVIDERS: ATTEND Family Medicine
DX: E11.9 Type 2 diabetes mellitus without complications (principal); E83.42 Hypomagnesemia; Z79.899 Other long term (current) drug therapy; Z88.0 Allergy status to penicillin; Z88.5 Allergy status to narcotic agent; Z88.8 Allergy status to other drugs, medicaments and biological substances; Z91.040 Latex allergy status; Z91.048 Other nonmedicinal substance allergy status; Z91.018 Allergy to other foods

== ENCOUNTER 2018-06-10 15:29 | Emergency (ER) | payer OTHER ==
[2018-06-10] MEDS ORDERED: ONDANSETRON 4MG/2ML VIAL (J2405) IV ONE (17:00)
[2018-06-10] MEDS ORDERED: NS 1,000 ML IV ONE (17:00)
[2018-06-10 17:21] LABS: BASO % 0.5 % (0.0-1.0); EOS # 0.1 10^3/uL (0.0-0.50); EOS % 1.1 % (0.0-3.0); HEMATOCRIT 36.5 % (36.0-47.0); HEMOGLOBIN 11.6 g/dl (12.0-15.5); LYMPH # 1.7 10^3/uL (1.5-4.5); LYMPH % 27.5 % (24.0-44.0); MEAN CORPUSCULAR HEMOGLOBIN 31.3 pg (27.0-33.0); MEAN CORPUSCULAR HGB CONC 31.8 g/dl (32.0-36.5); MEAN CORPUSCULAR VOLUME 98.4 fl (80.0-96.0); MONO # 0.6 10^3/uL (0.0-0.8); MONO % 9.6 % (0.0-5.0); NEUTROPHILS # 3.8 10^3/uL (1.8-7.7); NEUTROPHILS % 60.8 % (36.0-66.0); PLATELET COUNT, AUTOMATED 258 10^3/uL (150-450); RED BLOOD COUNT 3.71 10^6/uL (4.00-5.40); WHITE BLOOD COUNT 6.3 10^3/uL (4.0-10.0)
[2018-06-10] MEDS: HYDROMORPHONE HCL 0.5 MG/ 0.5 ML SYRINGE (J1170 PER 1) IV PRN ×2 (17:25→18:37)
[2018-06-10] MEDS ORDERED: GASTROGRAFIN SOLUTION 30ML PO SCH ×2 (17:45)
[2018-06-10] MEDS: READI-CAT 2 PO SCH ×2 (17:47→18:29)
[2018-06-10 17:54] LABS: ALBUMIN 3.1 GM/DL (3.2-5.2); ALT/SGPT 34 U/L (12-78); BILIRUBIN,DIRECT < 0.1 MG/DL (0.0-0.2); BILIRUBIN,TOTAL 0.2 MG/DL (0.2-1.0); BLOOD UREA NITROGEN 13 MG/DL (7-18); CALCIUM LEVEL 9.5 MG/DL (8.5-10.1); CARBON DIOXIDE LEVEL 29 MEQ/L (21-32); CHLORIDE LEVEL 104 MEQ/L (98-107); CREATININE FOR GFR 0.66 MG/DL (0.55-1.30); GLOMERULAR FILTRATION RATE > 60.0 (>51); GLUCOSE, FASTING 224 MG/DL (70-100); LIPASE 91 U/L (73-393); POTASSIUM SERUM 3.9 MEQ/L (3.5-5.1); SODIUM LEVEL 138 MEQ/L (136-145); TOTAL PROTEIN 7.5 GM/DL (6.4-8.2)
--- NOTE | 2018-06-10 20:15 | REP ---
Clinical: Abdominal pain with possible obstruction. Technique: Axial images from the lung bases to the pubic symphysis using oral contrast material with coronal and sagittal re-formations. Comparison: 04/03/2018. Findings: The lung bases demonstrate mild bibasilar fibroatelectatic changes (left greater than right). Stable small left Bochdalek hernia noted. Liver, spleen, atrophic pancreas, bilateral adrenal glands and kidneys are normal. The patient is status post cholecystectomy. Evaluation of the enteric system demonstrates evidence for prior colectomy with ostomy via the left anterior abdominal wall. There is no evidence for bowel obstruction and intraluminal contrast is identified extending through the ostomy. Mural thickening and multiple small bowel loops in the right lower abdomen is nonspecific, but enteritis cannot be excluded. Evaluation of the pelvis demonstrates normal bladder and normal Maribell's pouch. The patient is status post hysterectomy. Evidence for prior ventral hernia repair noted. There is a left anterior abdominal wall Spigelian hernia below the ostomy containing nonobstructed loop of small bowel. No ascites. No free air. No adenopathy. Abdominal aorta without aneurysm. Osseous structures are intact. Impression: 1. Mucosal thickening to small bowel loops in the lower abdomen may reflect enteritis and should be correlated clinically. 2. There is no evidence for bowel obstruction and intraluminal contrast is identified extending throughout the bowel through the ostomy. 3. There is a small stable Spigelian hernia below the ostomy containing unobstructed loop of small bowel. 4. Further chronic stable changes as described above. 5. No ascites, focal inflammatory stranding, adenopathy, or free air. Electronically Signed by Darius Roth MD 06/10/2018 08:07 P
[2018-06-10] MEDS ORDERED: FLAG500T PO (20:25)
[2018-06-10] MEDS ORDERED: SODIUM CHLORIDE 0.9% INJ 10 ML SYR IV PRN (20:30)
[2018-06-10] MEDS ORDERED: NEOSPORIN OINT 0.9 GM PKT (FLOOR STOCK) As Ordered ONE (20:41)
[2018-06-10 20:49] VITALS: BP 138/73
[2018-06-10] MEDS ORDERED: AMITRIPTYLINE 50 MG TAB PO ONE (21:00)
--- NOTE | 2018-06-11 13:34 | ED PDOC ---
Post-Departure Follow-Up dr saha faxed formal report of ct abd/p for fu Miranda Damico MD Jun 11, 2018 13:34
== END 2018-06-10 20:52 | disposition home or self-care (01) ==
LOC: M ED 15:29
DX: K52.9 Noninfective gastroenteritis and colitis, unspecified (principal); E11.9 Type 2 diabetes mellitus without complications; J45.909 Unspecified asthma, uncomplicated; F33.9 Major depressive disorder, recurrent, unspecified; F41.9 Anxiety disorder, unspecified; E78.5 Hyperlipidemia, unspecified; Z86.14 Personal history of Methicillin resistant Staphylococcus aureus infection; Z86.718 Personal history of other venous thrombosis and embolism; Z87.19 Personal history of other diseases of the digestive system; Z87.442 Personal history of urinary calculi; Z88.1 Allergy status to other antibiotic agents; Z88.5 Allergy status to narcotic agent; Z88.6 Allergy status to analgesic agent; Z88.8 Allergy status to other drugs, medicaments and biological substances; Z91.018 Allergy to other foods; Z91.040 Latex allergy status
CPT/HCPCS: 36415; 74176; 80048; 80076; 81001; 83605; 83690; 85025; 87040; 87086; 96374; 96375; 96376; 99284; J1170; J2405

== ENCOUNTER → 2018-06-16 | Outpatient (CLI) | payer OTHER ==
[~2018-06-16] MED LIST changes: +FLAG500T PO
--- NOTE | 2018-06-16 15:57 | REP ---
CT brain without contrast: History: Assess for intracranial lesion. Comparison CT brain is from July [address] findings: Preliminary digital band ripsaw operator radiograph demonstrates that the patient is edentulous. Bone window settings show an intact bony calvarium. No bony destructive lesion is seen. Visualized paranasal sinuses are clear. No intraorbital abnormality is appreciated. Lateral third and fourth ventricles are normal in size and position. Camejo-white differentiation pattern is normal above below the tentorium. There is no evidence of intracranial hemorrhage, mass, extra-axial fluid collection, infarct, or midline shift. Impression: Negative CT study of the brain. Electronically Signed by Skyler Godoy MD 06/16/2018 03:49 P
== END ==
LOC: M RAD 15:32
PROVIDERS: ATTEND Physician Assistant Medical
DX: R51 Headache (principal)

== ENCOUNTER 2018-06-21 10:16 | Emergency (ER) | payer OTHER ==
[~2018-06-21] VITALS: Ht 170.2 cm; Wt 77.7 kg
[2018-06-21] MEDS ORDERED: AMITRIPTYLINE 50 MG TAB PO SCH ×2 (12:00→21:00)
[2018-06-21 12:05] LABS: BASO % 0.4 % (0.0-1.0); EOS # 0.1 10^3/uL (0.0-0.50); HEMATOCRIT 37.3 % (36.0-47.0); HEMOGLOBIN 11.9 g/dl (12.0-15.5); LYMPH # 1.7 10^3/uL (1.5-4.5); LYMPH % 23.8 % (24.0-44.0); MEAN CORPUSCULAR HGB CONC 31.9 g/dl (32.0-36.5); MEAN CORPUSCULAR VOLUME 97.1 fl (80.0-96.0); MONO # 0.6 10^3/uL (0.0-0.8); MONO % 8.5 % (0.0-5.0); NEUTROPHILS # 4.8 10^3/uL (1.8-7.7); PLATELET COUNT, AUTOMATED 279 10^3/uL (150-450); RED BLOOD COUNT 3.84 10^6/uL (4.00-5.40); WHITE BLOOD COUNT 7.2 10^3/uL (4.0-10.0)
[2018-06-21] MEDS ORDERED: HYDROMORPHONE HCL 0.5 MG/ 0.5 ML SYRINGE (J1170 PER 1) IV ONE (12:30)
[2018-06-21] MEDS ORDERED: HYDROmorphone HCL 1 MG/ML SYRINGE (J1170) IV ONE (12:30)
[2018-06-21] MEDS ORDERED: ONDANSETRON 4MG/2ML VIAL (J2405) IV ONE (12:30)
[2018-06-21 12:36] LABS: ALBUMIN 3.2 GM/DL (3.2-5.2); ALT/SGPT 42 U/L (12-78); BILIRUBIN,DIRECT < 0.1 MG/DL (0.0-0.2); BILIRUBIN,TOTAL 0.2 MG/DL (0.2-1.0); BLOOD UREA NITROGEN 10 MG/DL (7-18); CALCIUM LEVEL 10.2 MG/DL (8.5-10.1); CARBON DIOXIDE LEVEL 28 MEQ/L (21-32); CHLORIDE LEVEL 101 MEQ/L (98-107); CREATININE FOR GFR 0.62 MG/DL (0.55-1.30); GLOMERULAR FILTRATION RATE > 60.0 (>51); GLUCOSE, FASTING 130 MG/DL (70-100); LIPASE 80 U/L (73-393); POTASSIUM SERUM 4.2 MEQ/L (3.5-5.1); SODIUM LEVEL 136 MEQ/L (136-145)
[2018-06-21] MEDS: READI-CAT 2 PO SCH ×2 (13:10→13:48)
[2018-06-21] MEDS ORDERED: HumaLOG INSULIN (NovoLOG) PER UNIT SC STA (13:13)
--- NOTE | 2018-06-21 14:42 | REP ---
CT of the abdomen pelvis without IV contrast but with bowel contrast for bowel obstruction: Comparison is 06/10/2018. The patient has a colectomy and left lower quadrant ileostomy as previously. Additionally, the patient has a hysterectomy. The visualized lower lung garcía are unremarkable. There is a small Bochdalek hernia on the left containing retroperitoneal fat but no organ, unchanged. The visualized lung garcía are unremarkable. The unenhanced hepatic parenchyma, pancreas and spleen are unremarkable except for diffuse pancreatic fatty atrophy. There are surgical clips in the gallbladder fossa. The adrenals are unremarkable. The unenhanced kidneys are unremarkable. The abdominal aorta is unremarkable. There are retroperitoneal surgical clips as previously. There is no bowel distension or obstruction. There is a left lower quadrant ileostomy. There is a small peristomal hernia. This is unchanged. There is no ascites. Pelvis: The bladder is distended but otherwise unremarkable. The vaginal cuff and adnexa are unremarkable. The pelvic bowel loops are unchanged unremarkable. There are surgical staple lines in the pelvis. Impression: There is no evidence of bowel obstruction. There is a minimal volume of intraluminal content in the bowel. There is a left lower quadrant stoma with a small peristomal hernia without obstruction. Cholecystectomy and hysterectomy. Electronically Signed by Geovanni Jordan MD 06/21/2018 02:34 P
[2018-06-21] MEDS ORDERED: SODIUM CHLORIDE 0.9% INJ 10 ML SYR IV PRN (15:15)
[2018-06-21 15:24] VITALS: BP 147/67
== END 2018-06-21 15:47 | disposition home or self-care (01) ==
LOC: M ED 10:16
DX: R10.9 Unspecified abdominal pain (principal); G89.29 Other chronic pain; R11.10 Vomiting, unspecified; E11.9 Type 2 diabetes mellitus without complications; E78.5 Hyperlipidemia, unspecified; J45.909 Unspecified asthma, uncomplicated; F41.9 Anxiety disorder, unspecified; Z86.718 Personal history of other venous thrombosis and embolism; Z86.14 Personal history of Methicillin resistant Staphylococcus aureus infection; Z87.19 Personal history of other diseases of the digestive system; Z87.442 Personal history of urinary calculi; Z90.49 Acquired absence of other specified parts of digestive tract; Z93.3 Colostomy status; Z88.8 Allergy status to other drugs, medicaments and biological substances; Z88.1 Allergy status to other antibiotic agents; Z88.5 Allergy status to narcotic agent; Z91.018 Allergy to other foods; Z91.040 Latex allergy status; Z88.4 Allergy status to anesthetic agent; Z91.048 Other nonmedicinal substance allergy status; Z79.899 Other long term (current) drug therapy; Z79.51 Long term (current) use of inhaled steroids; Z79.4 Long term (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
CPT/HCPCS: 74176; 80048; 80076; 83690; 85025; 96374; 96375; 99284; J1170; J2405

== ENCOUNTER 2018-07-06 06:48 | Outpatient (CLI) | payer OTHER ==
[~2018-07-06] VITALS: Ht 170.2 cm; Wt 77.7 kg
[~2018-07-06 06:48] MED LIST changes: +SODIUM CHLORIDE 0.9% INJ 10 ML SYR IV SCH
[2018-07-06 06:50] VITALS: BP 145/74
== END 2018-07-06 07:15 | disposition home or self-care (01) ==
LOC: M INFU 06:48
PROVIDERS: ATTEND Family Medicine
DX: E83.42 Hypomagnesemia (principal)

== ENCOUNTER 2018-07-09 10:01 | Outpatient (CLI) | payer OTHER ==
[~2018-07-09] VITALS: Ht 165.1 cm; Wt 87.3 kg
[~2018-07-09 10:01] MED LIST changes: -/AMIT100TA PO; -/ESOM40CA; -/ESOM40CA OR; -/GLIM2TA; -/GLIM4TA; -/INSULEV SC; -/INSULEV SQ; -/INSUNPH SC; -/INSUREG SQ; -/IPRA3SP INH; -/ONDA4TA; -/ONDA4TA OR; -/ONDA4TA PO; -/PANT40TA PO; -/RANI15TA PO; -/SUCR1TA OR; -/SUCR1TA PO; +AMAR1TAB5; +AMAR1TAB6; +AMIT1TAB12 PO; +ATRO1SOL13 INH; -HYDR1OI TOP; +HYDR1OIN2 TOP; +LACT15SO PO; -LACT20EL PO; +LEVE0.01 SC; +LEVE0.01 SQ; +NEXI1CAP3; +NEXI1CAP3 OR; +NOVO1INJ2 SQ; +NOVO1INJ3 SC; +ONDA-1; +ONDA-1 OR; +ONDA-1 PO; +ONDA-227; +PRED-351 PO; -PRED10TA PO; +PROT1TAB2 PO; +RANI1TAB17 PO; +SUCR1TAB56 OR; +SUCR1TAB56 PO; -ZOFR8TAB
[2018-07-09 10:05] VITALS: BP 119/83
[2018-07-09 10:08] VITALS: BP 135/67
== END 2018-07-09 10:25 | disposition home or self-care (01) ==
LOC: M INFU 10:01
PROVIDERS: ATTEND Allergy & Immunology Allergy
DX: J45.40 Moderate persistent asthma, uncomplicated (principal); Z88.0 Allergy status to penicillin; Z88.2 Allergy status to sulfonamides; Z88.5 Allergy status to narcotic agent; Z88.8 Allergy status to other drugs, medicaments and biological substances; Z91.040 Latex allergy status; Z91.018 Allergy to other foods; Z91.048 Other nonmedicinal substance allergy status

== ENCOUNTER → 2018-07-16 | Outpatient (CLI) | payer OTHER ==
[~2018-07-16] MED LIST changes: -SODIUM CHLORIDE 0.9% INJ 10 ML SYR IV SCH
--- NOTE | 2018-08-04 00:27 | ECWPNPC ---
PATIENT NAME: GLENN FELDER : 1960 GENDER: FEMALE VISIT DATE: 07/16/2018 DISCHARGE DATE: 07/16/18 1031 VISIT LOCKED DATE TIME: PHYSICIAN: NAVNEET BRAY RESOURCE: NAVNEET BRAY REASON FOR APPOINTMENT 1. NEW BODY PART, ABD PAIN HISTORY OF PRESENT ILLNESS HISTORY OF PRESENT ILLNESS: HERE PER REFERRAL OF DR CHAPA FOR EVALUATION OF ABDOMINAL PAIN REQUESTING A PAIN INJECTION IN ABDOMEN FOR PAIN CONTROL.HISTORY OF MULTIPLE ABDOMINAL SURGERIES.DR CHAPA IS NOT INCLINED TO DO ANYMORE ABDOMINAL SURGERIES IF HE CAN HELP IT.RATING ABDOMINAL PAIN 7/10VAS. PAIN THE PATIENT DESCRIBES THE PAIN... FALL RISK SCREENING: SCREENING :NO FALLS REPORTED IN THE LAST YEAR CURRENT MEDICATIONS TAKING RANITIDINE HCL 150 MG TABLET 1 TABLET ORALLY TWICE A DAY TAKING MAY SAVAGE BAGS CLEAR VELCRO CLOSER ([id number]) ICD:V55.3 CHANGE NEEDED (EDUARD) TAKING ONETOUCH ULTRA TEST - STRIP USE 1 STRIP FOUR TIMES A DAY TAKING MAY HAVE SAVAGE WAFERS NEW IMAGE SKIN BARRIERS FLATING FLANGES ICD: V55.3 ([id number] 2 1/2 CHANGE NEEDED (EDUARD) TAKING BABY WIPES 1 MISCELLANEOUS DIRECTED TOPICALLY PRN DX:569.62 TAKING COMPRESSION STOCKINGS 20/30 STOCKINGS 724.4 THIGH HIGHS DAILY TAKING ZOCOR 20 20MG TABLET 1 TAB(S) ORAL AT BEDTIME TAKING HEPARIN SODIUM (PORCINE) 5000 UNIT/ML SOLUTION INJECTION 1X MONTH TAKING ONE TOUCH ULTRA SYSTEM KIT METER DIRECTED ONE TOUCH ULTRA MINI-METER ONLY DX: E11.9, E11.21, E11.22, E11.65 TAKING DOCUSATE SODIUM 50 MG/5ML LIQUID 5 ML NEEDED ORALLY BID PRN CONSTIPATIO TAKING MAY HAVE - - DIRECTED ABDOMINAL BINDER WITH STOMA CUT-OUT WEAR DAILY FOR ABDOMINAL HERNIA PAIN. DX: K43.9 TAKING SYRINGE/NEEDLE (DISP) 1CC DIABETIC 1 SQ FOUR TIMES DAILY/DX:E11.9 IDDM TAKING SYRINGE 25G X 1 MISCELLANEOUS DIRECTED INTRAMUSCULAR ONCE DAILY; ICD:R11.0 TAKING BD SYRINGE/NEEDLE 23G X 1 MISCELLANEOUS 1 SYRINGE INTRAMUSCULARLY TWICE DAILY DX:R11.0 TAKING BD PEN NEEDLE ULTRAFINE 29G X 12.7MM MISCELLANEOUS DIRECTED TOPICALLY DAILY TAKING ONETOUCH LANCETS DELICA LANCET 1 SUBCUTANEOUSLY 4 TIMES A DAY/DX:E11.90 IDDM TAKING A & D ZINC OXIDE - CREAM APPLY TO PERINEAL AREA AFTER EACH BM EXTERNALLY DIRECTED TAKING NEEDLE (DISP) 30G X 1 MISCELLANEOUS DX: E11.9 FOR LEVEMIR PEN VITRO DAILY TAKING ONE TOUCH ULTRA 2 LANCET 1 LANCET LANCET ICD:250.02 IDDM FOUR TIMES DAILY TAKING BLOOD GLUCOSE TEST STRIP - STRIP 1 STRIP IN VITRO 4 TIMES DAILY TAKING METOCLOPRAMIDE HCL 5 MG/5ML SOLUTION 10 MG (10ML) ORALLY 30 MINUTES BEFORE MEALS AND AT BEDTIME NEEDED TAKING SPIRIVA RESPIMAT 1.25 MCG/ACT AEROSOL SOLUTION 2 PUFFS INHALATION TWICE DAILY TAKING LAC-HYDRIN 12 % LOTION 1 APPLICATION TO AFFECTED AREA EXTERNALLY TWICE A DAY TAKING ONETOUCH DELICA LANCETS 33G - MISCELLANEOUS USE DIRECTED FOUR TIMES A DAY TAKING SUCRALFATE 1 GM TABLET CRUSH 1 TABLET AND MIX INTO A SLURRY WITH 10-15MLS OF WATER ORALLY TWICE A DAY TAKING MIRALAX 1 SUSPENSION 17 GRAMS ORALLY TWICE DAILY TAKING TIZANIDINE HCL 2 MG TABLET 1/2 TABLET ORALLY TWICE A DAY TAKING AMITRIPTYLINE HCL 50 MG TABLET DIRECTED ORALLY 1 TAB IN AM AND 3 TABS AT BEDTIME TAKING SIMETHICONE 80 MG TABLET CHEWABLE 2 TABLETS AFTER MEALS AND AT BEDTIME NEEDED ORALLY THREE TIMES A DAY NEEDED FOR ABDOMINAL PAIN AND DISTENTION TAKING TRIAMCINOLONE ACETONIDE 0.1 % CREAM APPLY A THIN LAYER TO ABDOMEN EXTERNALLY TWICE A DAY TAKING ZOFRAN 4 MG/2ML SOLUTION 4 TO 8 MG INJECTION BID AT LEAST 8H APART TAKING HYDROMORPHONE HCL 4 MG TABLET 1/2 -1 TABLET ORALLY Q8H PRN MDD3 TAKING STIOLTO RESPIMAT 2.5-2.5 MCG/ACT AEROSOL SOLUTION INHALE TWO PUFFS BY MOUTH ONCE DAILY AT THE SAME TIME EACH DAY INHALATION TAKING ALCOHOL PREPS _ WIPE DX: E11.9 TOPICAL 5 TIMES A DAY NEEDED FOR INJECTIONS TAKING KLOR-CON M20 20 MEQ TABLET EXTENDED RELEASE 1 TABLET ORALLY ONCE A DAY TAKING TEMO ALLERGY 180 MG TABLET 1 TABLET NEEDED ORALLY ONCE A DAY TAKING ASTELIN 137 MCG/SPRAY SOLUTION 1 PUFF IN EACH NOSTRIL NASALLY TWICE A DAY TAKING OMNARIS 50 MCG/ACT SUSPENSION 2 SPRAYS IN EACH NOSTRIL NASALLY ONCE A DAY TAKING ELVER MACDONALDAR 300 UNIT/ML SOLUTION PEN-INJECTOR DIRECTED SUBCUTANEOUS 70 UNITS TAKING NOVOLOG MIX 70/30 (70-30) 100 UNIT/ML SUSPENSION 35 UNITS SUBCUTANEOUS DAILY AT THE MIDDAY MEAL TAKING SM ALCOHOL PREP 70 % PAD USE DIRECTED 5 TIMES A DAY NEEDED FOR INJECTIONS TAKING LACTULOSE 20 GM/30ML SOLUTION 15 ML ORALLY THREE TIMES DAILY NOT-TAKING SYMBICORT 160-4.5 MCG/ACT AEROSOL 2 PUFFS INHALATION TWICE A DAY NOT-TAKING SIMETHICONE 125 MG TABLET CHEWABLE 1 TABLET NEEDED ORALLY FOUR TIMES A DAY PRN ABDOMINAL DISTENTION OR PAIN, NOTES: PRN MEDICATION LIST REVIEWED AND RECONCILED WITH THE PATIENT PAST MEDICAL HISTORY DM II WITH NEUROPATHY, HBA1C GOAL IS 8.0 FOR NOW B/C OF RISK OF HYPOGLYCEMIA, CONSIDER LOWER IF CONSISTENTLY ACHIEVED ASTHMA HYPERLIPIDEMIA GERD NEPHROLITHIASIS 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 ALLERGIC RHINITIS CHRONIC MAXILLARY SINUSITIS CHRONIC HEADACHES (PAIN MANAGEMENT) CHRONIC PAIN SYNDROME/RSD (PAIN MANAGEMENT) PERSONAL HISTORY OF VENOUS THROMBOSIS AND EMBOLISM (RESOLVED 12/19/2009) ABDOMINAL HERNIA ALLERGIES IODINE: NERVES, TIGHT MUSCLES - SIDE EFFECTS GABAPENTIN: NERVOUS SYSTEM,SHAKEY - SIDE EFFECTS GABITRIL: NERVOUS - SIDE EFFECTS KETOROLAC TROMETHAMINE: VOMITING - SIDE EFFECTS MEPERIDINE HCL: OUT OF BODY EXPERIENCE - SIDE EFFECTS MORPHINE SULFATE: SEVERE H/A WITH BIG DOSE - SIDE EFFECTS PROMETHAZINE HCL: OUT OF BODY EXPERIENCE - SIDE EFFECTS TRAMADOL: SHAKES - SIDE EFFECTS OXYCODONE: VOMITING,HIVES - ALLERGY PENICILLIN (FOR ALLERGIES USE ONLY): HIVES - ALLERGY FENTANYL: NERVOUS - SIDE EFFECTS DROPERIDOL: OUT OF BODY - SIDE EFFECTS CODEINE SULFATE: OUT OF BODY EXPERIENCE - SIDE EFFECTS PHENOTHIAZINES: NERVOUS SYSTEM - SIDE EFFECTS QUINOLONES- CIPRO,TEQUIN: HIVES - ALLERGY RED FOOD DYE: RASH - ALLERGY LIDODERM (LICOCANINE): HEART RACES - SIDE EFFECTS SULFA: HIVES - ALLERGY ASPIRIN: HIVES - ALLERGY ATIVAN: HALLUCINATIONS - SIDE EFFECTS AZITHROMYCIN: HIVES - ALLERGY BACLOFEN: AFFECTED NERVOUS SYT - SIDE EFFECTS LYRICA: SHAKES, EVERYTHING IS BLACK - SIDE EFFECTS VICODIN: CONFUSION - SIDE EFFECTS MACROBID: HIVES, BLURRED VISION - ALLERGY READI-CAT: HIVES - ALLERGY ALBUTEROL SULFATE: COUGH - ALLERGY GASTROGRAFIN: ONLY 1 BOTTLE PER TEST DAY (CAN NOT TOLERATE ANY MORE THAN 1 BOTTLE) - CONTRAINDICATION LATEX (FOR ALLERGY USE ONLY): DIFFICULTY - ALLERGY SURGICAL HISTORY NO PERSONAL HX OF SEVERE REACTION TO ANESTHESIA, HER BROTHER HAS "HAD HIS THROAT CLOSE OFF TWO DIFFERENT TIMES" WITH GENERAL ANESTHESIA SCALP TUMOR 1984 LUMPECTOMIES - REPORTED BENIGN BILATERAL 16 AND 21 YO TOTAL HYSTERECTOMY-DUE TO OVARIAN CYSTS/MASS 21 YO BILAT SYMPATHECTOMY 1987 AV FISTULA REPAIR L LEG 1988 CHOLECYSTECTOMY LATE SBO 2001 ABDOMINAL HERNIA REPAIR 2004 VENTRAL HERNIA REPAIR 2009 DORSAL COLUMN STIMULATOR TAKEN OUT AND NEW ONE IMPLANTED 02/21 SMALL PORTION OF SMALL BOWEL RESECTED AND VENTRAL HERNIA REPAIRS (GOESSLIN) 06/2010 ILEOSTOMY-EDUARD 07/28/12 CYST REMOVED RIGHT NOSTRIL- DR RAJPUT. 09/17/12 REPAIR TWO HERNIAS AND REPAIR OF STOMA 03/26 HERNIA REPAIR X2 08/31/13 PARASTOMAL HERNIA REPAIR- EDUARD 06/26 HERNIA AND STOMA REPAIR-EDUARD 06/11 PERASTOMAL HERNIA REPAIR, WITH A SMALL BOWEL OBSTRUCTION 03/2017 INFUSAPORT PLACMENT ([facility]) 08/2017 HERNIA REPAIR X4 STOMA REVERSAL 10/2017 BATTERY REPLACEMENT FOR STIMULATOR 02/2018 FAMILY HISTORY FATHER: ALIVE, CANCER, DIAGNOSED WITH STROKE, CANCER MOTHER: , OF MYELODYSPLASTIC SYNDROME; WAS ALSO KNOWN TO HAVE CAD, CANCER SIBLINGS: ALIVE 1 BROTHER(S) - HEALTHY. 2 BROTHERS DM, KIDNET FAILURE. SOCIAL HISTORY GENERAL: TOBACCO USE ARE YOU A:NONSMOKER NEVER SMOKER LATEX QUESTIONNAIRE LATEX ALLERGY : HAVE YOU EVER DEVELOPED ANY TYPE OF REACTION AFTER HANDLING LATEX PRODUCTS SUCH RUBBER GLOVES, CONDOMS, DIAPHRAGMS, BALLOONS, SOCKS, OR UNDERWEAR?YES SEE ALLERGY LIST - PLEASE INDICATE :OTHER (DOCUMENT IN NOTES) LATEX ALLERGY : HAVE YOU EVER DEVELOPED ANY TYPE OF REACTION DURING OR AFTER DENTAL APPOINTMENT, VAGINAL/RECTAL EXAMINATION, SURGICAL PROCEDURE, OR ANY OTHER EXPOSURE?YES - PLEASE INDICATE :DENTAL PROCEDURE, VAGINAL EXAM, RECTAL EXAM, SURGICAL PROCEDURE, OTHER (DOCUMENT IN NOTES) LATEX RISK : HAVE YOU EVER HAD ANY DIFFICULTY BREATHING OR HIVES AFTER EATING OR HANDLING ANY FRUITS, OR VEGETABLES; SUCH KIWI, BANANAS, STONE FRUITS, OR CHESTNUTSYES - PLEASE INDICATE : BANANAS, STONE FRUITS LATEX RISK : DO YOU HAVE A PREVIOUS PERSONAL HISTORY OF MORE THAN NINE SURGERIES, SPINA BIFIDA, OR REPEATED CATHERTIZATIONS? YES - PLEASE INDICATE : > 9 SURGERIES LATEX RISK : ARE YOU FREQUENTLY EXPOSED TO LATEX PRODUCTS IN YOUR OCCUPATION?NO DATE ASKED : 07/10/2018 ALCOHOL SCREENING DID YOU HAVE A DRINK CONTAINING ALCOHOL IN THE PAST YEAR?NO POINTS0 INTERPRETATIONNEGATIVE RECREATIONAL DRUG USE DRUG USE?NO CAFFEINE CAFFEINE USE?NO SEXUAL HX HAD SEX IN THE LAST 12 MONTHS (VAGINAL, ORAL, OR ANAL)?NO HAVE YOU EVER HAD AN STD?NO HIV / HEP-C SCREENING HIV TEST OFFERED TO PATIENT:YES DATE OFFERED:07/18/2016 TEST ACCEPTED:NO REASON:PATIENT DECLINED HEP-C TEST OFFERED TO PATIENT:YES DATE OFFERED:07/18/2016 TEST ACCEPTED:NO REASON:PATIENT DECLINED [id number]. EDUCATION LEVEL OF EDUCATION:[employer] 8TH GRADE LEARNING BARRIERS / SPECIAL NEEDS CHANGE FROM LAST VISIT?NO BARRIERS TO LEARNING?NO HEARING IMPAIRED?NO VISION IMPAIRED?YES :CORRECTIVE LENSES COGNITIVELY IMPAIRED?NO READINESS TO LEARN?YES LEARNING PREFERENCES?NO LEARNING CAPABILITIES PRESENT?YES EMOTIONAL BARRIERS?NO SPECIAL DEVICES?YES :CANE, WHEELCHAIR STRATEGIC PARTNERSHIP MANAGER NEEDED?NO DOMESTIC VIOLENCE DO YOU FEEL SAFE IN YOUR ENVIRONMENT?YES OCCUPATION: DISABLED. DIET: NO CONCENTRATED SWEETS., CARBOHYDRATE CONTROLLED. EXERCISE: NO REGULAR EXERCISE. MARITAL STATUS: SINGLE. OTHERS AT HOME: NONE. NEW PATIENT PAIN DIARY FROM 0-10, WHAT LEVEL IS YOUR PAIN TODAY?10 PAIN CLINIC PFS, CLERGY, PUBLIC HEALTH REFERRALS PFS REFERRAL NEEDED?NO CLERGY REFERRAL NEEDED?NO PUBLIC HEALTH REFERRAL NEEDED?NO HAS THE PATIENT BEEN EDUCATED REGARDING HIS/HER PLAN OF CARE?YES HAS THE PATIENT BEEN EDUCATED REGARDING PAIN, THE RISK FOR PAIN, THE IMPORTANCE OF EFFECTIVE PAIN MANAGEMENT, AND THE PAIN ASSESSMENT PROCESS?YES ADVANCE DIRECTIVE ADVANCE DIRECTIVE DISCUSSED WITH PATIENT:YES HCP - BROTHER (LUCAS); COPY PLACED IN RECORDS REVIEWED WITH PATIENT 05/01/18 4847 JS. HOSPITALIZATION/MAJOR DIAGNOSTIC PROCEDURE [facility]- SMALL BOWEL OBSTRUCTION, WAS IN HOSPITAL 11 DAYS 09/2015 [facility]- SMALL BOWEL OBSTRUCTION, WAS IN HOSPITAL IN 5 DAYS 03/2016 [facility]- SMALL BOWEL OBSTRUCTION 04/12/16-04/17/16 [facility]- SMALL BOWEL OBSTRUCTION 06/2016 [facility]- SMALL BOWEL OBSTRUCTION 03/17/17-04/18/17 REVIEW OF SYSTEMS REVIEWED BY: PROVIDER: NAVNEET SANABRIA . CONSTITUTIONAL: ANY CHANGE IN YOUR MEDICAL CONDITION? NO . CHILLS NO . FEVER NO . INFECTION: DO YOU HAVE NEW INFECTIONS? NO . DO YOU HAVE HISTORY OF MRSA? NO . MUSCULOSKELETAL: ANY NEW PATTERNS OF PAIN OR NUMBNESS? NO . GASTROENTEROLOGY: ANY NEW CHANGE IN BOWEL CONTROL? NO . GENITOURINARY: ANY NEW CHANGE IN BLADDER CONTROL? NO . IS THERE A CHANCE YOU COULD BE ? NO . HEMATOLOGY/LYMPH: DO YOU TAKE ANY BLOOD THINNERS? (FOR EXAMPLE- COUMADIN, PLAVIX, AGGRENOX, PLATEL, PRADAXA, OR XARELTO) NO . WHEN WAS YOUR LAST DOSE? DATE: TIME: . NEUROLOGY: HAVE YOU FALLEN IN THE PAST 12 MONTHS? NO . ANY NEW EXTREMITY NUMBNESS OR WEAKNESS? NO . CARDIOLOGY: DO YOU HAVE A PACEMAKER OR DEFIBRILLATOR? NO . RESPIRATORY: HAVE YOU BEEN SICK IN THE PAST WEEK? NO . FEVER NO . FLU LIKE SYMPTOMS? NO . COUGH NO . INTEGUMENTARY: DO YOU HAVE ANY RASHES OR OPEN SORES? NO . ALLERGIC/IMMUNO: ARE YOU ALLERGIC TO IV DYE? NO . ANY NEW ALLERGIES? NO . PSYCHIATRIC: DO YOU HAVE THOUGHTS OF HURTING YOURSELF OR SOMEONE ELSE? NO . ARE YOU ABUSED, NEGLECTED, OR IN AN UNSAFE ENVIRONMENT? NO . ENDOCRINOLOGY: ARE YOU DIABETIC? NO . OTHER: DO YOU NEED ANY PRESCRIPTIONS? NO . IF YES, PLEASE LIST: ____ . ANY NEW PROBLEMS WITH YOUR MEDICATIONS? NO . WHEN DID YOU LAST EAT? ____ . WHEN DID YOU LAST DRINK? ____ . WHAT DID YOU LAST DRINK? ____ . NAME OF PERSON DRIVING YOU HOME? ____ . DO YOU HAVE ANY OTHER QUESTIONS OR CONCERNS NO . VITAL SIGNS WT 190.6 LBS, HT 67 IN, BMI 29.85 INDEX, BP 143/75 MM HG, HR 85 /MIN, RR 18 /MIN, TEMP 96.6 F, OXYGEN SAT % 98%, SAFE IN ENV? (Y/N) YES, NA INITIALS TN 09:32, REVIEWED BY: VD. EXAMINATION GENERAL EXAMINATION: GENERAL APPEARANCE: AWAKE,ALERT ,PLEAASANT . PSYCH AFFECT NORMAL . LUNGS: LUNG ROGERS ARE CLEAR TO AUSCULTATION BILATERALLY. GOOD MOVEMENT OF AIR . HEART: S1, S2 IN A REGULAR RATE AND RHYTHM. NO SIGNIFICANT MURMURS, RUBS OR GALLOPS NOTED . ABDOMEN: PERIOSTOMY HERNIA.NORMOACTIVE BOWEL SOUNDS.TENDER LOWER QUADS. ASSESSMENTS GENERALIZED ABDOMINAL PAIN - R10.84 (PRIMARY) TREATMENT GENERALIZED ABDOMINAL PAIN NOTES: SPOKE WITH DR HECTOR WHO STATES HE WILL TALK WITH DR CHAPA.HE IS INCLINED TO DO PROCEDURE BUT WANTS TO CLARIFY WITH DR CHAPA FIRST.SPOKE WITH DR LINDA APPIAH WHO WILL CONTACT PATIENT TO INFORM HER OF PLAN. PROCEDURE CODES FA211 ESTABILISHED PATIENT [facility] CHARGE DISPOSITION & COMMUNICATION FOLLOW UP F/U W DR HECTOR ELECTRONICALLY SIGNED BY DANIELE MCKEON ON 08/03/2018 AT 04:25 PM EDT DISCLAIMER : THIS IS A VISIT SUMMARY EXTRACTED FROM THE [employer] CHART. IT IS NOT A COPY OF THE [employer] PROGRESS NOTE. MARLYN
== END ==
LOC: M PAIN 09:15
PROVIDERS: ATTEND Nurse Practitioner Family
DX: R10.84 Generalized abdominal pain (principal); E11.9 Type 2 diabetes mellitus without complications; J45.909 Unspecified asthma, uncomplicated; E78.5 Hyperlipidemia, unspecified; Z79.4 Long term (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; Z79.899 Other long term (current) drug therapy; Z88.0 Allergy status to penicillin; Z88.1 Allergy status to other antibiotic agents; Z88.2 Allergy status to sulfonamides; Z88.3 Allergy status to other anti-infective agents; Z88.5 Allergy status to narcotic agent; Z88.6 Allergy status to analgesic agent; Z88.8 Allergy status to other drugs, medicaments and biological substances; Z91.040 Latex allergy status; Z91.09 Other allergy status, other than to drugs and biological substances; Z91.02 Food additives allergy status; Z86.79 Personal history of other diseases of the circulatory system

== ENCOUNTER 2018-07-28 10:33 | Emergency (ER) | payer OTHER ==
[~2018-07-28] VITALS: Ht 170.2 cm; Wt 77.7 kg
--- NOTE | 2018-07-28 11:50 | REP ---
Acute abdominal series four views including PA chest, two supine views of the abdomen and single upright view of the abdomen: PA chest: Comparison is 01/27/2018. There is chronic cardiomegaly, unchanged. There is a right IJ Rykasa-C-Tvqt with the tip in the superior vena cava, unchanged. There is a spinal stimulator, unchanged. The lung garcía are clear. The leslee, mediastinum, skeletal structures are otherwise unremarkable. There is no free subdiaphragmatic air. Impression: No interval change. No free subdiaphragmatic air. Abdomen, supine upright views: Comparison is 03/20/2018. There is an air-fluid level in the stomach. The stomach is nondistended. There is no bowel distension or obstruction. There are numerous surgical larry and clips throughout the abdomen, unchanged. There is a stoma ring in the abdomen on the left, unchanged. There is a spinal stimulator, unchanged. Impression: There is no bowel obstruction. There is an air-fluid level in the the nondistended stomach, nonspecific. There are other chronic findings as described. Electronically Signed by Geovanni Jordan MD 07/28/2018 11:40 A
[2018-07-28] MEDS ORDERED: HYDROMORPHONE HCL 0.5 MG/ 0.5 ML SYRINGE (J1170 PER 1) IV ONE ×2 (12:00→14:15)
[2018-07-28 12:20] LABS: BASO % 0.5 % (0.0-1.0); EOS # 0.1 10^3/uL (0.0-0.50); EOS % 1.6 % (0.0-3.0); HEMATOCRIT 36.5 % (36.0-47.0); HEMOGLOBIN 11.9 g/dl (12.0-15.5); LYMPH # 1.5 10^3/uL (1.5-4.5); LYMPH % 20.8 % (24.0-44.0); MEAN CORPUSCULAR HEMOGLOBIN 32.2 pg (27.0-33.0); MEAN CORPUSCULAR HGB CONC 32.6 g/dl (32.0-36.5); MEAN CORPUSCULAR VOLUME 98.9 fl (80.0-96.0); MONO # 0.6 10^3/uL (0.0-0.8); MONO % 8.6 % (0.0-5.0); NEUTROPHILS % 68.1 % (36.0-66.0); PLATELET COUNT, AUTOMATED 288 10^3/uL (150-450); RED BLOOD COUNT 3.69 10^6/uL (4.00-5.40); WHITE BLOOD COUNT 7.4 10^3/uL (4.0-10.0)
[2018-07-28 12:48] LABS: ALBUMIN 3.5 GM/DL (3.2-5.2); ALT/SGPT 30 U/L (12-78); BILIRUBIN,DIRECT < 0.1 MG/DL (0.0-0.2); BILIRUBIN,TOTAL 0.2 MG/DL (0.2-1.0); BLOOD UREA NITROGEN 12 MG/DL (7-18); CALCIUM LEVEL 10.4 MG/DL (8.5-10.1); CARBON DIOXIDE LEVEL 29 MEQ/L (21-32); CHLORIDE LEVEL 104 MEQ/L (98-107); CREATININE FOR GFR 0.59 MG/DL (0.55-1.30); GLOMERULAR FILTRATION RATE > 60.0 (>51); GLUCOSE, FASTING 168 MG/DL (70-100); LIPASE 116 U/L (73-393); POTASSIUM SERUM 4.3 MEQ/L (3.5-5.1); SODIUM LEVEL 137 MEQ/L (136-145); TOTAL PROTEIN 7.4 GM/DL (6.4-8.2)
[2018-07-28] MEDS: READI-CAT 2 PO SCH ×2 (13:04→14:18)
[2018-07-28] MEDS ORDERED: ONDANSETRON 4MG/2ML VIAL (J2405) IV ONE (13:15)
[2018-07-28] MEDS ORDERED: NS 1,000 ML IV SCH (14:11)
--- NOTE | 2018-07-28 15:58 | REP ---
CT of the abdomen and pelvis with bowel contrast, without IV contrast: Comparison is 06/21/2018. The study is performed for abdominal pain and vomiting. The the patient has a history of colectomy and left lower quadrant ileostomy and hysterectomy. There is no bowel distension or obstruction. The ileostomy is in the left mid abdomen as previously. There is a small peristomal hernia as bowel obstruction. In addition in the left lower quadrant inferior to the stoma there is a spigelian hernia on the left. This is unchanged. There are anterior abdominal wall retainers. These were also present previously and suggest there is anterior abdominal wall mesh. The spigelian hernia appears to be at the left lateral margin of the mesh. There are bowel loops within the hernia as previously. There is no bowel distension or obstruction. The visualized lung garcía demonstrate chronic fibrotic changes but are otherwise unremarkable and unchanged. The unenhanced hepatic parenchyma is unremarkable and unchanged. Surgical clips are again identified in the gallbladder fossa. There is fatty atrophy of the pancreas, this is unchanged. The spleen is normal size, unremarkable and unchanged. The adrenals, kidneys and abdominal aorta are unremarkable and unchanged. There are multiple retroperitoneal surgical periaortic clips, unchanged. The bowel and mesentery are unremarkable. There is no evidence of bowel obstruction. Pelvis: The bladder is unremarkable. There is no adenopathy or ascites. There are surgical clips in the rectosigmoid area as previously. Impression: Total colectomy. Left midabdomen ileostomy. Small peristomal hernia, unchanged. Anterior abdominal wall mesh, unchanged. Left spigelian hernia at the left lateral margin of the mesh, unchanged. No bowel distension or obstruction. No ascites, adenopathy or mass. Retroperitoneal surgical clips, unchanged. Cholecystectomy, unchanged. There is a spinal stimulator, unchanged. The generator pack is in the subcutaneous tissues of the right buttocks as previously. Electronically Signed by Geovanni Jordan MD 07/28/2018 03:50 P
[2018-07-28 16:13] VITALS: BP 136/64
== END 2018-07-28 16:26 | disposition home or self-care (01) ==
LOC: M ED 10:33
DX: R10.9 Unspecified abdominal pain (principal); G89.29 Other chronic pain; R11.2 Nausea with vomiting, unspecified; E11.40 Type 2 diabetes mellitus with diabetic neuropathy, unspecified; J45.909 Unspecified asthma, uncomplicated; E78.9 Disorder of lipoprotein metabolism, unspecified; K21.9 Gastro-esophageal reflux disease without esophagitis; M79.7 Fibromyalgia; Z87.442 Personal history of urinary calculi; Z90.49 Acquired absence of other specified parts of digestive tract; Z93.2 Ileostomy status; Z88.0 Allergy status to penicillin; Z88.1 Allergy status to other antibiotic agents; Z88.2 Allergy status to sulfonamides; Z88.5 Allergy status to narcotic agent; Z88.8 Allergy status to other drugs, medicaments and biological substances; Z91.018 Allergy to other foods; Z91.048 Other nonmedicinal substance allergy status; Z88.4 Allergy status to anesthetic agent; Z91.040 Latex allergy status; Z79.899 Other long term (current) drug therapy; Z79.51 Long term (current) use of inhaled steroids; Z79.4 Long term (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
CPT/HCPCS: 74021; 74176; 80048; 80076; 83690; 85025; 93041; 96361; 96374; 96375; 96376; 99285; J1170; J2405

== ENCOUNTER 2018-08-03 06:31 | Outpatient (CLI) | payer OTHER ==
[~2018-08-03] VITALS: Ht 170.2 cm; Wt 77.7 kg
[2018-08-03 06:30] VITALS: BP 126/57
[~2018-08-03 06:31] MED LIST changes: +SODIUM CHLORIDE 0.9% INJ 10 ML SYR IV SCH
[2018-08-03 12:53] LABS: HEMOGLOBIN A1c 8.7 %
== END 2018-08-03 06:50 | disposition home or self-care (01) ==
LOC: M INFU 06:31
PROVIDERS: ATTEND Family Medicine
DX: E83.42 Hypomagnesemia (principal)

== ENCOUNTER 2018-08-14 07:23 | Outpatient (CLI) | payer OTHER ==
[~2018-08-14] VITALS: Ht 165.1 cm; Wt 77.7 kg
[~2018-08-14 07:23] MED LIST changes: +MM S100C PO; -SODIUM CHLORIDE 0.9% INJ 10 ML SYR IV SCH; -STOO100C PO
[2018-08-14 08:05] VITALS: BP 112/56
--- NOTE | 2018-08-14 08:33 | REP ---
Clinical: Asthma/chronic reactive airway disease . Comparison: 01/27/2018 . Technique: PA and lateral. Findings: The mediastinum and cardiac silhouette are normal. Knfulo-K-Jajc identified with tip in the SVC. Epidural stimulator in the thoracic level. Evidence of prior gastric bypass surgery and cholecystectomy suggested. Mild chronic bibasilar fibro atelectatic changes are suggested and should be correlated clinically. The skeletal structures are intact and normal. Impression: 1. No acute cardiopulmonary process. Chronic bibasilar fibro atelectatic changes suggested. Electronically Signed by Darius Roth MD 08/14/2018 08:25 A
[2018-08-14 08:41] LABS: BASO % 0.7 % (0.0-1.0); EOS # 0.1 10^3/uL (0.0-0.50); EOS % 1.8 % (0.0-3.0); HEMATOCRIT 37.8 % (36.0-47.0); LYMPH # 1.5 10^3/uL (1.5-4.5); LYMPH % 26.2 % (24.0-44.0); MEAN CORPUSCULAR HEMOGLOBIN 31.8 pg (27.0-33.0); MEAN CORPUSCULAR HGB CONC 31.7 g/dl (32.0-36.5); MEAN CORPUSCULAR VOLUME 100.3 fl (80.0-96.0); MONO # 0.6 10^3/uL (0.0-0.8); MONO % 11.6 % (0.0-5.0); NEUTROPHILS # 3.3 10^3/uL (1.8-7.7); NEUTROPHILS % 59.2 % (36.0-66.0); PLATELET COUNT, AUTOMATED 275 10^3/uL (150-450); RED BLOOD COUNT 3.77 10^6/uL (4.00-5.40); WHITE BLOOD COUNT 5.5 10^3/uL (4.0-10.0)
[2018-08-14] MEDS ORDERED: SODIUM CHLORIDE 0.9% INJ 10 ML SYR IV SCH (09:00)
[2018-08-14 09:33] LABS: RUBELLA IgG QUALITATIVE IMMUNE (IMMUNE)
[2018-08-14 09:44] LABS: IMMUNOGLOBULIN E 18.4 IU/ML (<100); IMMUNOGLOBULIN G 834 MG/DL (681-1648)
[2018-08-18 00:06] LABS: BORDETELLA PERTUSSIS ABY IgG 2.97 index (0.00-0.94)
[2018-08-20 14:27] LABS: ANTI TETANUS ANTIBODY 6.59 IU/mL (<0.10); PNEUMOCOCCAL AB TYPE 1 <0.1 ug/mL (>1.3); PNEUMOCOCCAL AB TYPE 12 0.4 ug/mL (>1.3); PNEUMOCOCCAL AB TYPE 14 5.1 ug/mL (>1.3); PNEUMOCOCCAL AB TYPE 17 <0.1 ug/mL (>1.3); PNEUMOCOCCAL AB TYPE 19 1.1 ug/mL (>1.3); PNEUMOCOCCAL AB TYPE 20 0.8 ug/mL (>1.3); PNEUMOCOCCAL AB TYPE 22 0.2 ug/mL (>1.3); PNEUMOCOCCAL AB TYPE 23 0.2 ug/mL (>1.3); PNEUMOCOCCAL AB TYPE 26 <0.1 ug/mL (>1.3); PNEUMOCOCCAL AB TYPE 3 0.1 ug/mL (>1.3); PNEUMOCOCCAL AB TYPE 34 1.6 ug/mL (>1.3); PNEUMOCOCCAL AB TYPE 4 <0.1 ug/mL (>1.3); PNEUMOCOCCAL AB TYPE 43 0.4 ug/mL (>1.3); PNEUMOCOCCAL AB TYPE 5 2.7 ug/mL (>1.3); PNEUMOCOCCAL AB TYPE 51 0.3 ug/mL (>1.3); PNEUMOCOCCAL AB TYPE 54 0.4 ug/mL (>1.3); PNEUMOCOCCAL AB TYPE 56 <0.1 ug/mL (>1.3); PNEUMOCOCCAL AB TYPE 57 0.7 ug/mL (>1.3); PNEUMOCOCCAL AB TYPE 68 <0.1 ug/mL (>1.3); PNEUMOCOCCAL AB TYPE 70 0.4 ug/mL (>1.3); PNEUMOCOCCAL AB TYPE 8 1.6 ug/mL (>1.3); PNEUMOCOCCAL AB TYPE 9 0.2 ug/mL (>1.3)
== END 2018-08-14 08:20 | disposition home or self-care (01) ==
LOC: M INFU 07:23
PROVIDERS: ATTEND Allergy & Immunology Allergy
DX: J45.40 Moderate persistent asthma, uncomplicated (principal); R05 Cough

== ENCOUNTER 2018-08-31 13:23 | Emergency (ER) | payer OTHER ==
[~2018-08-31] VITALS: Ht 170.2 cm; Wt 77.3 kg
[~2018-08-31 13:23] MED LIST changes: -MM S100C PO; +STOO100C PO
[2018-08-31] MEDS ORDERED: NS 1,000 ML IV ONE (16:45)
[2018-08-31] MEDS ORDERED: HYDROmorphone 2 MG TAB PO ONE (17:00)
--- NOTE | 2018-08-31 18:08 | REP ---
ABDOMINAL SERIES: Supine and erect views of the abdomen are performed and compared to prior study of 07/28/2018. There is no free air. There is no evidence of bowel obstruction. Multiple metallic clips are seen throughout the abdomen and pelvis. Dorsal column stimulator device is again noted. An accompanying view of the chest demonstrates no new infiltrate. The heart and mediastinum are unchanged. A right central venous catheter is seen unchanged. IMPRESSION: No acute pathology identified in the chest, abdomen, or pelvis radiographically. Electronically Signed by Geovanni Camejo MD 08/31/2018 07:56 P
[2018-08-31 18:25] LABS: BASO # 0.1 10^3/uL (0.0-0.2); BASO % 0.7 % (0.0-1.0); EOS # 0.1 10^3/uL (0.0-0.50); EOS % 0.7 % (0.0-3.0); HEMATOCRIT 39.8 % (36.0-47.0); LYMPH % 26.9 % (24.0-44.0); MEAN CORPUSCULAR HEMOGLOBIN 32.4 pg (27.0-33.0); MEAN CORPUSCULAR HGB CONC 32.7 g/dl (32.0-36.5); MEAN CORPUSCULAR VOLUME 99.3 fl (80.0-96.0); MONO # 0.8 10^3/uL (0.0-0.8); MONO % 10.5 % (0.0-5.0); NEUTROPHILS # 4.4 10^3/uL (1.8-7.7); NEUTROPHILS % 60.9 % (36.0-66.0); PLATELET COUNT, AUTOMATED 313 10^3/uL (150-450); RED BLOOD COUNT 4.01 10^6/uL (4.00-5.40); WHITE BLOOD COUNT 7.3 10^3/uL (4.0-10.0)
[2018-08-31 19:01] LABS: ALBUMIN 2.5 GM/DL (3.2-5.2); ALT/SGPT 25 U/L (12-78); BILIRUBIN,DIRECT < 0.1 MG/DL (0.0-0.2); BILIRUBIN,TOTAL 0.2 MG/DL (0.2-1.0); BLOOD UREA NITROGEN 12 MG/DL (7-18); CALCIUM LEVEL 7.8 MG/DL (8.5-10.1); CARBON DIOXIDE LEVEL 24 MEQ/L (21-32); CHLORIDE LEVEL 115 MEQ/L (98-107); CREATININE FOR GFR 0.29 MG/DL (0.55-1.30); GLOMERULAR FILTRATION RATE > 60.0 (>51); GLUCOSE, FASTING 65 MG/DL (70-100); LIPASE 71 U/L (73-393); POTASSIUM SERUM 2.8 MEQ/L (3.5-5.1); SODIUM LEVEL 145 MEQ/L (136-145); TOTAL PROTEIN 6.4 GM/DL (6.4-8.2)
[2018-08-31] MEDS ORDERED: KCL 20MEQ IN 100ML SWI (KRUN) 20 MEQ in APPROPRIATE DILUENT 1 EA IV ONE ×2 (19:30)
[2018-08-31] MEDS ORDERED: POTASSIUM CHLORIDE 10 MEQ SR TABLET PO ONE (19:30)
[2018-08-31 22:12] VITALS: BP 136/65
== END 2018-08-31 22:46 | disposition home or self-care (01) ==
LOC: M ED 13:23
DX: B37.2 Candidiasis of skin and nail (principal); E87.6 Hypokalemia; I95.9 Hypotension, unspecified; E78.5 Hyperlipidemia, unspecified; E83.42 Hypomagnesemia; Z87.442 Personal history of urinary calculi; Z90.49 Acquired absence of other specified parts of digestive tract; Z93.2 Ileostomy status; Z79.4 Long term (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; Z79.899 Other long term (current) drug therapy; Z88.0 Allergy status to penicillin; Z88.2 Allergy status to sulfonamides; Z88.8 Allergy status to other drugs, medicaments and biological substances; Z88.1 Allergy status to other antibiotic agents; Z91.040 Latex allergy status; Z91.02 Food additives allergy status; Z91.041 Radiographic dye allergy status; Z91.018 Allergy to other foods; Z91.89 Other specified personal risk factors, not elsewhere classified

== ENCOUNTER 2018-09-02 13:45 | Outpatient (CLI) | payer OTHER ==
[~2018-09-02] VITALS: Ht 170.2 cm; Wt 77.3 kg
[~2018-09-02 13:45] MED LIST changes: +SODIUM CHLORIDE 0.9% INJ 10 ML SYR IV SCH
[2018-09-02 14:00] VITALS: BP 123/61
[2018-09-02 15:09] LABS: BLOOD UREA NITROGEN 11 MG/DL (7-18); CALCIUM LEVEL 10.7 MG/DL (8.5-10.1); CARBON DIOXIDE LEVEL 28 MEQ/L (21-32); CHLORIDE LEVEL 103 MEQ/L (98-107); CREATININE FOR GFR 0.57 MG/DL (0.55-1.30); GLOMERULAR FILTRATION RATE > 60.0 (>51); GLUCOSE, FASTING 166 MG/DL (70-100); MAGNESIUM LEVEL 1.7 MG/DL (1.8-2.4); POTASSIUM SERUM 4.3 MEQ/L (3.5-5.1); SODIUM LEVEL 138 MEQ/L (136-145)
[2018-09-02 15:19] LABS: HEMOGLOBIN A1c 8.4 %
== END 2018-09-02 14:10 | disposition home or self-care (01) ==
LOC: M INFU 13:45
PROVIDERS: ATTEND Family Medicine
DX: E83.42 Hypomagnesemia (principal)

== ENCOUNTER → 2018-09-04 | Outpatient (CLI) | payer OTHER ==
[~2018-09-04] MED LIST changes: -SODIUM CHLORIDE 0.9% INJ 10 ML SYR IV SCH
--- NOTE | 2018-09-20 00:36 | ECWPNPC ---
PATIENT NAME: GLENN FELDER : 1960 GENDER: FEMALE VISIT DATE: 09/04/2018 DISCHARGE DATE: 09/04/18 1146 VISIT LOCKED DATE TIME: PHYSICIAN: ELLIS HECTOR MD RESOURCE: ELLIS HECTOR MD REASON FOR APPOINTMENT 1. PER DR Amaro HISTORY OF PRESENT ILLNESS HISTORY OF PRESENT ILLNESS: PAIN THE PATIENT DESCRIBES THE PAIN... 52 YEAR OLD FEMALE PATIENT WITH A HISTORY OF CHRONIC ABDOMINAL PAIN. THE PATIENT DESCRIBES THE PAIN TENDER, SHARP, STABBING, AND CONTINUOUS WITH A PAIN SCORE OF 7-10/10 DEPENDING ON PHYSICAL ACTIVITY. THE PATIENT SAYS HER PAIN IS FROM A HISTORY OF MULTIPLE HERNIA SURGERIES. THE PATIENT SAYS HER PAIN IS MAINLY OVER HER LEFT LOWER QUADRANT OF HER ABDOMEN. THE PATIENT REPORTS THAT DR. HCAPA MAY CONSIDER MORE SURGERIES, BUT WOULD LIKE HER TO TRY ALTERNATIVES FIRST. THE PATIENT SAYS THAT SHE HAS DIFFICULTY DOING DAILY ACTIVITIES SUCH COOKING, CLEANING, AND GROCERY SHOPPING DUE TO THIS PAIN. PATIENT DENIES UNEXPLAINABLE WEIGHT LOSS, FEVER, CHILLS, NEW CHANGES ON HER URINARY OR BOWEL CONTROL. FALL RISK SCREENING: SCREENING :NO FALLS REPORTED IN THE LAST YEAR CURRENT MEDICATIONS TAKING RANITIDINE HCL 150 MG TABLET 1 TABLET ORALLY TWICE A DAY TAKING MAY SAVAGE BAGS CLEAR VELCRO CLOSER ([id number]) ICD:V55.3 CHANGE NEEDED (EDUARD) TAKING MAY HAVE SAVAGE WAFERS NEW IMAGE SKIN BARRIERS FLATING FLANGES ICD: V55.3 ([id number] 2 1/2 CHANGE NEEDED (EDUARD) TAKING BABY WIPES 1 MISCELLANEOUS DIRECTED TOPICALLY PRN DX:569.62 TAKING COMPRESSION STOCKINGS 20/30 STOCKINGS 724.4 THIGH HIGHS DAILY TAKING ZOCOR 20 20MG TABLET 1 TAB(S) ORAL AT BEDTIME TAKING HEPARIN SODIUM (PORCINE) 5000 UNIT/ML SOLUTION INJECTION 1X MONTH TAKING ONE TOUCH ULTRA SYSTEM KIT METER DIRECTED ONE TOUCH ULTRA MINI-METER ONLY DX: E11.9, E11.21, E11.22, E11.65 TAKING DOCUSATE SODIUM 50 MG/5ML LIQUID 5 ML NEEDED ORALLY BID PRN CONSTIPATIO TAKING MAY HAVE - - DIRECTED ABDOMINAL BINDER WITH STOMA CUT-OUT WEAR DAILY FOR ABDOMINAL HERNIA PAIN. DX: K43.9 TAKING SYRINGE/NEEDLE (DISP) 1CC DIABETIC 1 SQ FOUR TIMES DAILY/DX:E11.9 IDDM TAKING SYRINGE 25G X 1 MISCELLANEOUS DIRECTED INTRAMUSCULAR ONCE DAILY; ICD:R11.0 TAKING BD SYRINGE/NEEDLE 23G X 1 MISCELLANEOUS 1 SYRINGE INTRAMUSCULARLY TWICE DAILY DX:R11.0 TAKING BD PEN NEEDLE ULTRAFINE 29G X 12.7MM MISCELLANEOUS DIRECTED TOPICALLY DAILY TAKING ONETOUCH LANCETS DELICA LANCET 1 SUBCUTANEOUSLY 4 TIMES A DAY/DX:E11.90 IDDM TAKING A & D ZINC OXIDE - CREAM APPLY TO PERINEAL AREA AFTER EACH BM EXTERNALLY DIRECTED TAKING NEEDLE (DISP) 30G X 1 MISCELLANEOUS DX: E11.9 FOR LEVEMIR PEN VITRO DAILY TAKING ONE TOUCH ULTRA 2 LANCET 1 LANCET LANCET ICD:250.02 IDDM FOUR TIMES DAILY TAKING BLOOD GLUCOSE TEST STRIP - STRIP 1 STRIP IN VITRO 4 TIMES DAILY TAKING SPIRIVA RESPIMAT 1.25 MCG/ACT AEROSOL SOLUTION 2 PUFFS INHALATION TWICE DAILY TAKING LAC-HYDRIN 12 % LOTION 1 APPLICATION TO AFFECTED AREA EXTERNALLY TWICE A DAY TAKING ONETOUCH DELICA LANCETS 33G - MISCELLANEOUS USE DIRECTED FOUR TIMES A DAY TAKING SUCRALFATE 1 GM TABLET CRUSH 1 TABLET AND MIX INTO A SLURRY WITH 10-15MLS OF WATER ORALLY TWICE A DAY TAKING MIRALAX 1 SUSPENSION 17 GRAMS ORALLY TWICE DAILY TAKING AMITRIPTYLINE HCL 50 MG TABLET DIRECTED ORALLY 1 TAB IN AM AND 3 TABS AT BEDTIME TAKING SIMETHICONE 80 MG TABLET CHEWABLE 2 TABLETS AFTER MEALS AND AT BEDTIME NEEDED ORALLY THREE TIMES A DAY NEEDED FOR ABDOMINAL PAIN AND DISTENTION TAKING HYDROMORPHONE HCL 4 MG TABLET 1/2 -1 TABLET ORALLY Q8H PRN MDD3 TAKING STIOLTO RESPIMAT 2.5-2.5 MCG/ACT AEROSOL SOLUTION INHALE TWO PUFFS BY MOUTH ONCE DAILY AT THE SAME TIME EACH DAY INHALATION TAKING ALCOHOL PREPS _ WIPE DX: E11.9 TOPICAL 5 TIMES A DAY NEEDED FOR INJECTIONS TAKING TEMO ALLERGY 180 MG TABLET 1 TABLET NEEDED ORALLY ONCE A DAY TAKING OMNARIS 50 MCG/ACT SUSPENSION 2 SPRAYS IN EACH NOSTRIL NASALLY ONCE A DAY TAKING TOUJEO SOLOSTAR 300 UNIT/ML SOLUTION PEN-INJECTOR DIRECTED SUBCUTANEOUS 70 UNITS TAKING NOVOLOG MIX 70/30 (70-30) 100 UNIT/ML SUSPENSION 35 UNITS SUBCUTANEOUS DAILY AT THE MIDDAY MEAL TAKING SM ALCOHOL PREP 70 % PAD USE DIRECTED 5 TIMES A DAY NEEDED FOR INJECTIONS TAKING LACTULOSE 20 GM/30ML SOLUTION 15 ML ORALLY THREE TIMES DAILY TAKING LOPID 600 MG TABLET 1 TABLET ORALLY DAILY TAKING METOCLOPRAMIDE HCL 5 MG/5ML SOLUTION 10 MG (10ML) ORALLY 30 MINUTES BEFORE MEALS AND AT BEDTIME NEEDED TAKING ZOFRAN 4 MG/2ML SOLUTION 4 MG INJECTION BID AT LEAST 8H APART TAKING ASTELIN 137 MCG/SPRAY SOLUTION 1 PUFF IN EACH NOSTRIL NASALLY TWICE A DAY TAKING TIZANIDINE HCL 2 MG TABLET 1/2 TABLET ORALLY TWICE A DAY TAKING DIFLUCAN 150 MG TABLET 1 TABLET ORALLY ONCE A WEEK TAKING TRIAMCINOLONE ACETONIDE 0.1 % CREAM APPLY A THIN LAYER TO ABDOMEN EXTERNALLY TWICE A DAY TAKING ONETOUCH ULTRA TEST - STRIP USE 1 STRIP FOUR TIMES A DAY TAKING KLOR-CON M20 20 MEQ TABLET EXTENDED RELEASE 1 TABLET ORALLY ONCE A DAY NOT-TAKING CLOTRIMAZOLE-BETAMETHASONE 1-0.05 % CREAM 1 APPLICATION TO AFFECTED AREA TOPICALLY TO LEFT ABDOMEN TWICE A DAY NOT-TAKING ZOFRAN ODT 4 MG TABLET DISINTEGRATING DIRECTED ORALLY BID NOT-TAKING SYMBICORT 160-4.5 MCG/ACT AEROSOL 2 PUFFS INHALATION TWICE A DAY NOT-TAKING SIMETHICONE 125 MG TABLET CHEWABLE 1 TABLET NEEDED ORALLY FOUR TIMES A DAY PRN ABDOMINAL DISTENTION OR PAIN, NOTES: PRN MEDICATION LIST REVIEWED AND RECONCILED WITH THE PATIENT PAST MEDICAL HISTORY DM II WITH NEUROPATHY, HBA1C GOAL IS 8.0 FOR NOW B/C OF RISK OF HYPOGLYCEMIA, CONSIDER LOWER IF CONSISTENTLY ACHIEVED ASTHMA HYPERLIPIDEMIA GERD NEPHROLITHIASIS 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 ALLERGIC RHINITIS CHRONIC MAXILLARY SINUSITIS CHRONIC HEADACHES (PAIN MANAGEMENT) CHRONIC PAIN SYNDROME/RSD (PAIN MANAGEMENT) PERSONAL HISTORY OF VENOUS THROMBOSIS AND EMBOLISM (RESOLVED 12/19/2009) ABDOMINAL HERNIA ALLERGIES IODINE: NERVES, TIGHT MUSCLES - SIDE EFFECTS GABAPENTIN: NERVOUS SYSTEM,SHAKEY - SIDE EFFECTS GABITRIL: NERVOUS - SIDE EFFECTS KETOROLAC TROMETHAMINE: VOMITING - SIDE EFFECTS MEPERIDINE HCL: OUT OF BODY EXPERIENCE - SIDE EFFECTS MORPHINE SULFATE: SEVERE H/A WITH BIG DOSE - SIDE EFFECTS PROMETHAZINE HCL: OUT OF BODY EXPERIENCE - SIDE EFFECTS TRAMADOL: SHAKES - SIDE EFFECTS OXYCODONE: VOMITING,HIVES - ALLERGY PENICILLIN (FOR ALLERGIES USE ONLY): HIVES - ALLERGY FENTANYL: NERVOUS - SIDE EFFECTS DROPERIDOL: OUT OF BODY - SIDE EFFECTS CODEINE SULFATE: OUT OF BODY EXPERIENCE - SIDE EFFECTS PHENOTHIAZINES: NERVOUS SYSTEM - SIDE EFFECTS QUINOLONES- CIPRO,TEQUIN: HIVES - ALLERGY RED FOOD DYE: RASH - ALLERGY LIDODERM (LICOCANINE): HEART RACES - SIDE EFFECTS SULFA: HIVES - ALLERGY ASPIRIN: HIVES - ALLERGY ATIVAN: HALLUCINATIONS - SIDE EFFECTS AZITHROMYCIN: HIVES - ALLERGY BACLOFEN: AFFECTED NERVOUS SYT - SIDE EFFECTS LYRICA: SHAKES, EVERYTHING IS BLACK - SIDE EFFECTS VICODIN: CONFUSION - SIDE EFFECTS MACROBID: HIVES, BLURRED VISION - ALLERGY READI-CAT: HIVES - ALLERGY ALBUTEROL SULFATE: COUGH - ALLERGY GASTROGRAFIN: ONLY 1 BOTTLE PER TEST DAY (CAN NOT TOLERATE ANY MORE THAN 1 BOTTLE) - CONTRAINDICATION LATEX (FOR ALLERGY USE ONLY): DIFFICULTY - ALLERGY SURGICAL HISTORY NO PERSONAL HX OF SEVERE REACTION TO ANESTHESIA, HER BROTHER HAS "HAD HIS THROAT CLOSE OFF TWO DIFFERENT TIMES" WITH GENERAL ANESTHESIA SCALP TUMOR 1984 LUMPECTOMIES - REPORTED BENIGN BILATERAL 16 AND 21 YO TOTAL HYSTERECTOMY-DUE TO OVARIAN CYSTS/MASS 21 YO BILAT SYMPATHECTOMY 1987 AV FISTULA REPAIR L LEG 1988 CHOLECYSTECTOMY LATE SBO 2001 ABDOMINAL HERNIA REPAIR 2004 VENTRAL HERNIA REPAIR 2009 DORSAL COLUMN STIMULATOR TAKEN OUT AND NEW ONE IMPLANTED 02/21 SMALL PORTION OF SMALL BOWEL RESECTED AND VENTRAL HERNIA REPAIRS (GOESSLIN) 06/2010 ILEOSTOMY-EDUARD 07/28/12 CYST REMOVED RIGHT NOSTRIL- DR RAJPUT. 09/17/12 REPAIR TWO HERNIAS AND REPAIR OF STOMA 03/26 HERNIA REPAIR X2 08/31/13 PARASTOMAL HERNIA REPAIR- EDUARD 06/26 HERNIA AND STOMA REPAIR-EDUARD 06/11 PERASTOMAL HERNIA REPAIR, WITH A SMALL BOWEL OBSTRUCTION 03/2017 INFUSAPORT PLACMENT ([facility]) 08/2017 HERNIA REPAIR X4 STOMA REVERSAL 10/2017 BATTERY REPLACEMENT FOR STIMULATOR 02/2018 FAMILY HISTORY FATHER: ALIVE, CANCER, DIAGNOSED WITH STROKE, CANCER MOTHER: , OF MYELODYSPLASTIC SYNDROME; WAS ALSO KNOWN TO HAVE CAD, CANCER SIBLINGS: ALIVE 1 BROTHER(S) - HEALTHY. 2 BROTHERS DM, KIDNET FAILURE. SOCIAL HISTORY GENERAL: TOBACCO USE ARE YOU A:NONSMOKER NEVER SMOKER HIV / HEP-C SCREENING HIV TEST OFFERED TO PATIENT:YES DATE OFFERED:07/18/2016 TEST ACCEPTED:NO REASON:PATIENT DECLINED HEP-C TEST OFFERED TO PATIENT:YES DATE OFFERED:07/18/2016 TEST ACCEPTED:NO REASON:PATIENT DECLINED OTHERS AT HOME: NONE. EDUCATION LEVEL OF EDUCATION:[employer] 8TH GRADE DIET: NO CONCENTRATED SWEETS., CARBOHYDRATE CONTROLLED. LANGUAGE KAZAKH. DOMESTIC VIOLENCE DO YOU FEEL SAFE IN YOUR ENVIRONMENT?YES NEW PATIENT PAIN DIARY FROM 0-10, WHAT LEVEL IS YOUR PAIN TODAY?10 RECREATIONAL DRUG USE DRUG USE?NO EXERCISE: NO REGULAR EXERCISE. LEARNING BARRIERS / SPECIAL NEEDS CHANGE FROM LAST VISIT?NO BARRIERS TO LEARNING?NO HEARING IMPAIRED?NO VISION IMPAIRED?YES :CORRECTIVE LENSES COGNITIVELY IMPAIRED?NO READINESS TO LEARN?YES LEARNING PREFERENCES?NO LEARNING CAPABILITIES PRESENT?YES EMOTIONAL BARRIERS?NO SPECIAL DEVICES?YES :CANE, WHEELCHAIR YOGA TEACHER NEEDED?NO PAIN CLINIC PFS, CLERGY, PUBLIC HEALTH REFERRALS PFS REFERRAL NEEDED?NO CLERGY REFERRAL NEEDED?NO PUBLIC HEALTH REFERRAL NEEDED?NO HAS THE PATIENT BEEN EDUCATED REGARDING HIS/HER PLAN OF CARE?YES HAS THE PATIENT BEEN EDUCATED REGARDING PAIN, THE RISK FOR PAIN, THE IMPORTANCE OF EFFECTIVE PAIN MANAGEMENT, AND THE PAIN ASSESSMENT PROCESS?YES LATEX QUESTIONNAIRE LATEX ALLERGY : HAVE YOU EVER DEVELOPED ANY TYPE OF REACTION AFTER HANDLING LATEX PRODUCTS SUCH RUBBER GLOVES, CONDOMS, DIAPHRAGMS, BALLOONS, SOCKS, OR UNDERWEAR?YES SEE ALLERGY LIST - PLEASE INDICATE :OTHER (DOCUMENT IN NOTES) LATEX ALLERGY : HAVE YOU EVER DEVELOPED ANY TYPE OF REACTION DURING OR AFTER DENTAL APPOINTMENT, VAGINAL/RECTAL EXAMINATION, SURGICAL PROCEDURE, OR ANY OTHER EXPOSURE?YES - PLEASE INDICATE :DENTAL PROCEDURE, VAGINAL EXAM, RECTAL EXAM, SURGICAL PROCEDURE, OTHER (DOCUMENT IN NOTES) LATEX RISK : HAVE YOU EVER HAD ANY DIFFICULTY BREATHING OR HIVES AFTER EATING OR HANDLING ANY FRUITS, OR VEGETABLES; SUCH KIWI, BANANAS, STONE FRUITS, OR CHESTNUTSYES - PLEASE INDICATE : BANANAS, STONE FRUITS LATEX RISK : DO YOU HAVE A PREVIOUS PERSONAL HISTORY OF MORE THAN NINE SURGERIES, SPINA BIFIDA, OR REPEATED CATHERTIZATIONS? YES - PLEASE INDICATE : > 9 SURGERIES LATEX RISK : ARE YOU FREQUENTLY EXPOSED TO LATEX PRODUCTS IN YOUR OCCUPATION?NO DATE ASKED : 07/10/2018 CAFFEINE CAFFEINE USE?NO ADVANCE DIRECTIVE ADVANCE DIRECTIVE DISCUSSED WITH PATIENT:YES HCP - BROTHER (LUCAS); COPY PLACED IN RECORDS MANDAEN [id number] PRESBYTERIAN MARITAL STATUS: SINGLE. ALCOHOL SCREENING DID YOU HAVE A DRINK CONTAINING ALCOHOL IN THE PAST YEAR?NO POINTS0 INTERPRETATIONNEGATIVE OCCUPATION: DISABLED. SEXUAL HX HAD SEX IN THE LAST 12 MONTHS (VAGINAL, ORAL, OR ANAL)?NO HAVE YOU EVER HAD AN STD?NO REVIEWED WITH PATIENT 05/01/18 0915 JS. HOSPITALIZATION/MAJOR DIAGNOSTIC PROCEDURE [facility]- SMALL BOWEL OBSTRUCTION, WAS IN HOSPITAL 11 DAYS 09/2015 [facility]- SMALL BOWEL OBSTRUCTION, WAS IN HOSPITAL IN 5 DAYS 03/2016 [facility]- SMALL BOWEL OBSTRUCTION 04/12/16-04/17/16 [facility]- SMALL BOWEL OBSTRUCTION 06/2016 [facility]- SMALL BOWEL OBSTRUCTION 03/17/17-04/18/17 REVIEW OF SYSTEMS REVIEWED BY: PROVIDER: ELLIS HECTOR MD . CONSTITUTIONAL: ANY CHANGE IN YOUR MEDICAL CONDITION? NO . CHILLS NO . FEVER NO . INFECTION: DO YOU HAVE NEW INFECTIONS? NO . DO YOU HAVE HISTORY OF MRSA? NO . MUSCULOSKELETAL: ANY NEW PATTERNS OF PAIN OR NUMBNESS? YES, MORE NOW . GASTROENTEROLOGY: ANY NEW CHANGE IN BOWEL CONTROL? NO . GENITOURINARY: ANY NEW CHANGE IN BLADDER CONTROL? NO . IS THERE A CHANCE YOU COULD BE ? NO . HEMATOLOGY/LYMPH: DO YOU TAKE ANY BLOOD THINNERS? (FOR EXAMPLE- COUMADIN, PLAVIX, AGGRENOX, PLATEL, PRADAXA, OR XARELTO) NO . WHEN WAS YOUR LAST DOSE? DATE: TIME: . NEUROLOGY: HAVE YOU FALLEN IN THE PAST 12 MONTHS? NO . ANY NEW EXTREMITY NUMBNESS OR WEAKNESS? NO . CARDIOLOGY: DO YOU HAVE A PACEMAKER OR DEFIBRILLATOR? NO . RESPIRATORY: HAVE YOU BEEN SICK IN THE PAST WEEK? NO . FEVER NO . FLU LIKE SYMPTOMS? NO . COUGH NO . INTEGUMENTARY: DO YOU HAVE ANY RASHES OR OPEN SORES? YES, RASH TO ABD . ALLERGIC/IMMUNO: ARE YOU ALLERGIC TO IV DYE? YES, READI-CAT, IODINE . ANY NEW ALLERGIES? NO . PSYCHIATRIC: DO YOU HAVE THOUGHTS OF HURTING YOURSELF OR SOMEONE ELSE? NO . ARE YOU ABUSED, NEGLECTED, OR IN AN UNSAFE ENVIRONMENT? NO . ENDOCRINOLOGY: ARE YOU DIABETIC? YES . OTHER: DO YOU NEED ANY PRESCRIPTIONS? NO . IF YES, PLEASE LIST: ____ . ANY NEW PROBLEMS WITH YOUR MEDICATIONS? NO . WHEN DID YOU LAST EAT? ____ . WHEN DID YOU LAST DRINK? ____ . WHAT DID YOU LAST DRINK? ____ . NAME OF PERSON DRIVING YOU HOME? ____ . DO YOU HAVE ANY OTHER QUESTIONS OR CONCERNS NO . VITAL SIGNS WT 188.6 LBS, HT 67 IN, BMI 29.54 INDEX, BP 135/71 MM HG, HR 92 /MIN, RR 18 /MIN, TEMP 96.0 F, OXYGEN SAT % 96%, NA INITIALS AW 0926, REVIEWED BY: EM. EXAMINATION GENERAL EXAMINATION: PATIENT IS ALERT O X 3 AND COOPERATIVE. PATIENT HAS AN ILEOSTOMY OVER THE LEFT ABDOMINAL AREA. MULTIPLE SURGICAL SCARS OVER THE ABDOMEN. TENDERNESS OVER THE LEFT ABDOMINAL AREA. ASSESSMENTS LEFT LOWER QUADRANT PAIN - R10.32 (PRIMARY) HISTORY OF ABDOMINAL SURGERY - Z98.890 TREATMENT LEFT LOWER QUADRANT PAIN CLINICAL NOTES: WE DISCUSSED SEVERAL ISSUES WITH MRS. FELDER'S PAIN MANAGEMENT CASE. THE PATIENT WILL CONTACT YAIMA ROBLES FROM [employer] TO SEE IF THERE IS AN ADJUSTMENT THAT COULD BE MADE TO HER DCS IMPLANT FOR ABDOMINAL STIMULATION. I WOULD ALSO LIKE TO MOVE FORWARD WITH A TRIGGER POINT INJECTION OVER THE ABDOMINAL AREA. WE DISCUSSED THE BENEFITS, RISKS, AND ALTERNATIVES OF THE INJECTION AND THE PATIENT WOULD LIKE TO PROCEED. I WILL CONSIDER AN ABDOMINAL TAP WITH ULTRASOUND IN THE FUTURE. THE PATIENT WILL FOLLOW UP WITH A NURSE PRACTITIONER FOR MEDICATION MANAGEMENT. INSTRUCTIONS WERE GIVEN, QUESTIONS WERE ANSWERED, PATIENT REPORTS UNDERSTANDING AND AGREES WITH THE PLAN. I, CYNTHIA CUENCA, DOCUMENTED THE ABOVE INFORMATION ACTING A SCRIBE FOR DR. HECTOR. I HAVE REVIEWED THE ABOVE DOCUMENT, WRITTEN BY CYNTHIA APPIAH AND I VERIFY THAT IT IS ACCURATE. . PROCEDURE CODES FA211 ESTABILISHED PATIENT [facility] FACILITY CHARGE [id number] CURRENT MEDS W/DOSAGES DOCUMENTED G8730 PAIN ASSESS POS TOOL F/U PLAN DOC DISPOSITION & COMMUNICATION FOLLOW UP 3 WEEKS ELECTRONICALLY SIGNED BY ELLIS HECTOR MD, MD ON 09/19/2018 AT 04:58 PM EDT DISCLAIMER : THIS IS A VISIT SUMMARY EXTRACTED FROM THE [employer] CHART. IT IS NOT A COPY OF THE [employer] PROGRESS NOTE. MARLYN
== END ==
LOC: M PAIN 10:30
PROVIDERS: ATTEND Anesthesiology
DX: R10.32 Left lower quadrant pain (principal); G89.29 Other chronic pain; Z98.890 Other specified postprocedural states; E11.40 Type 2 diabetes mellitus with diabetic neuropathy, unspecified; J45.909 Unspecified asthma, uncomplicated; E78.5 Hyperlipidemia, unspecified; Z88.0 Allergy status to penicillin; Z88.1 Allergy status to other antibiotic agents; Z88.2 Allergy status to sulfonamides; Z88.3 Allergy status to other anti-infective agents; Z88.5 Allergy status to narcotic agent; Z88.6 Allergy status to analgesic agent; Z88.8 Allergy status to other drugs, medicaments and biological substances; Z91.040 Latex allergy status; Z91.041 Radiographic dye allergy status; Z79.4 Long term (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; Z79.899 Other long term (current) drug therapy

== ENCOUNTER 2018-09-14 15:53 | Emergency (ER) | payer OTHER ==
[~2018-09-14] VITALS: Ht 170.2 cm; Wt 83.9 kg
[2018-09-14] MEDS ORDERED: NS 1,000 ML IV ONE (17:15)
[2018-09-14] MEDS ORDERED: ONDANSETRON 4MG/2ML VIAL (J2405) IV ONE (17:45)
[2018-09-14] MEDS ORDERED: HYDROMORPHONE HCL 0.5 MG/ 0.5 ML SYRINGE (J1170 PER 1) IV ONE (17:45)
[2018-09-14 18:07] LABS: BASO # 0.1 10^3/uL (0.0-0.2); BASO % 0.8 % (0.0-1.0); EOS # 0.1 10^3/uL (0.0-0.50); EOS % 2.2 % (0.0-3.0); HEMATOCRIT 36.6 % (36.0-47.0); LYMPH # 1.5 10^3/uL (1.5-4.5); LYMPH % 23.8 % (24.0-44.0); MEAN CORPUSCULAR HEMOGLOBIN 32.9 pg (27.0-33.0); MEAN CORPUSCULAR HGB CONC 32.8 g/dl (32.0-36.5); MEAN CORPUSCULAR VOLUME 100.3 fl (80.0-96.0); MONO # 0.7 10^3/uL (0.0-0.8); MONO % 10.6 % (0.0-5.0); NEUTROPHILS % 62.3 % (36.0-66.0); PLATELET COUNT, AUTOMATED 275 10^3/uL (150-450); RED BLOOD COUNT 3.65 10^6/uL (4.00-5.40); WHITE BLOOD COUNT 6.4 10^3/uL (4.0-10.0)
[2018-09-14 18:29] LABS: ALBUMIN 3.6 GM/DL (3.2-5.2); ALT/SGPT 39 U/L (12-78); BILIRUBIN,DIRECT < 0.1 MG/DL (0.0-0.2); BILIRUBIN,TOTAL 0.2 MG/DL (0.2-1.0); LIPASE 94 U/L (73-393); TOTAL PROTEIN 7.8 GM/DL (6.4-8.2)
--- NOTE | 2018-09-14 21:06 | REPVR ---
EXAM: CT Abdomen and Pelvis Without Contrast EXAM DATE/TIME: 09/14/2018 7:21 PM CLINICAL HISTORY: 57 years old, female; Abdominal pain; Generalized; Prior surgery; Additional info: Abdl pain RO obstruction TECHNIQUE: Imaging protocol: Axial computed tomography images of the abdomen and pelvis without contrast. Coronal and sagittal reformatted images were created and reviewed. Radiation optimization: All CT scans at this facility use at least one of these dose optimization techniques: automated exposure control; mA and/or kV adjustment per patient size (includes targeted exams where dose is matched to clinical indication); or iterative reconstruction. COMPARISON: CT ABD/PEL W/PO CONTRAST ONLY 07/28/2018 3:05 PM FINDINGS: Limitations: Assessment of vascular structures, soft tissues, and organs is limited due to lack of IV contrast. Tubes, catheters and devices: Partially visualized neurostimulator device with electrodes in the lower thoracic spinal canal and controller in the right posterior flank subcutaneous fat. Lungs: Atelectasis and/or scarring at the lung bases. ABDOMEN: Liver: Normal. Gallbladder and bile ducts: Status post cholecystectomy. Pancreas: Fatty atrophy of the pancreas. No ductal dilatation. Spleen: No splenomegaly. Adrenals: Normal. No mass. Kidneys and ureters: No hydronephrosis. No urolithiasis. Stomach and bowel: Left upper abdominal ostomy, which appears to be patent. Similar appearing lower left anterior abdominal wall spigelian hernia at the lateral herniorrhaphy mesh margin containing a short segment of small bowel, without evidence of obstruction or strangulation. Status post colectomy. No mucosal thickening. Appendix: Surgically absent. PELVIS: Bladder: Unremarkable as visualized. Reproductive: Status post hysterectomy. ABDOMEN and PELVIS: Intraperitoneal space: No free air. No significant fluid collection. Bones/joints: No acute fracture. No dislocation. Soft tissues: Status post ventral herniorrhaphy with mesh. There is unchanged anterior abdominal wall eventration and fatty atrophy of the rectus muscles. Vasculature: No abdominal aortic aneurysm. Lymph nodes: No enlarged lymph nodes. IMPRESSION: 1. No acute findings. 2. Similar appearing left spigelian hernia at the left lateral herniorrhaphy mesh margin containing a short segment of small bowel, without evidence of obstruction or strangulation. 3. Nonacute/incidental findings above. Electronically signed by: Wyatt Story On 09/14/2018 21:06:29 PM
[2018-09-14 22:20] VITALS: BP 122/60
== END 2018-09-14 22:23 | disposition home or self-care (01) ==
LOC: M ED 15:53
DX: R10.9 Unspecified abdominal pain (principal); K43.9 Ventral hernia without obstruction or gangrene; Z79.4 Long term (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; Z79.899 Other long term (current) drug therapy; Z91.041 Radiographic dye allergy status; Z91.018 Allergy to other foods; Z91.040 Latex allergy status; Z91.02 Food additives allergy status; Z91.89 Other specified personal risk factors, not elsewhere classified; Z88.0 Allergy status to penicillin; Z88.2 Allergy status to sulfonamides; Z88.8 Allergy status to other drugs, medicaments and biological substances; Z88.1 Allergy status to other antibiotic agents; Z88.5 Allergy status to narcotic agent
CPT/HCPCS: 36415; 74176; 80047; 80076; 81001; 83605; 83690; 85025; 87040; 87086; 93041; 96361; 96374; 96375; 99285; J1170; J2405

== ENCOUNTER 2018-10-07 10:00 | Emergency (ER) | payer OTHER ==
[~2018-10-07] VITALS: Ht 170.2 cm; Wt 85.7 kg
[~2018-10-07 10:00] MED LIST changes: +MM S100C PO; -STOO100C PO
--- NOTE | 2018-10-07 12:38 | REP ---
CT of the abdomen pelvis without IV and oral contrast: Comparison is 09/14/2018. The patient has a history of colectomy with ileostomy, hysterectomy and cholecystectomy. The The visualized lung garcía demonstrate curvilinear parenchymal scarring but are otherwise unremarkable. The unenhanced hepatic parenchyma, pancreas and spleen are unremarkable. The adrenals are unremarkable. The kidneys are unremarkable. The abdominal aorta is unremarkable. There is no retroperitoneal adenopathy or mass. There is no ascites. There is abdominal ileostomy on the left, unchanged. There is a small peristomal hernia containing a non obstructing small bowel loop as previously. Inferior to the stoma there is a spigelian hernia containing a non obstructive loop of small bowel along the lateral margin of anterior abdominal wall mesh, unchanged. There is no bowel distension or obstruction. Pelvis: The bladder is distended but otherwise unremarkable. The vaginal cuff and adnexa are unremarkable. There is no ascites. There are surgical clips in the rectosigmoid colon. The remainder of the colon is been resected. Impression: No significant interval change. The bladder is distended. There are postsurgical changes as described. Persistent spigelian hernia with nonobstructive bowel on the left as described. Electronically Signed by Geovanni Jordan MD 10/07/2018 12:30 P
[2018-10-07 12:41] LABS: BASO % 0.5 % (0.0-1.0); EOS # 0.1 10^3/uL (0.0-0.50); EOS % 1.3 % (0.0-3.0); HEMATOCRIT 35.4 % (36.0-47.0); HEMOGLOBIN 11.4 g/dl (12.0-15.5); LYMPH # 1.4 10^3/uL (1.5-4.5); LYMPH % 22.2 % (24.0-44.0); MEAN CORPUSCULAR HEMOGLOBIN 32.7 pg (27.0-33.0); MEAN CORPUSCULAR HGB CONC 32.2 g/dl (32.0-36.5); MEAN CORPUSCULAR VOLUME 101.4 fl (80.0-96.0); MONO # 0.6 10^3/uL (0.0-0.8); MONO % 9.3 % (0.0-5.0); NEUTROPHILS # 4.1 10^3/uL (1.8-7.7); NEUTROPHILS % 66.2 % (36.0-66.0); PLATELET COUNT, AUTOMATED 238 10^3/uL (150-450); RED BLOOD COUNT 3.49 10^6/uL (4.00-5.40); WHITE BLOOD COUNT 6.2 10^3/uL (4.0-10.0)
[2018-10-07 13:10] LABS: ALT/SGPT 31 U/L (12-78); BILIRUBIN,DIRECT < 0.1 MG/DL (0.0-0.2); BILIRUBIN,TOTAL 0.2 MG/DL (0.2-1.0); BLOOD UREA NITROGEN 8 MG/DL (7-18); CALCIUM LEVEL 9.8 MG/DL (8.5-10.1); CARBON DIOXIDE LEVEL 27 MEQ/L (21-32); CHLORIDE LEVEL 107 MEQ/L (98-107); GLOMERULAR FILTRATION RATE > 60.0 (>51); GLUCOSE, FASTING 144 MG/DL (70-100); LIPASE 91 U/L (73-393); SODIUM LEVEL 140 MEQ/L (136-145); TOTAL PROTEIN 7.4 GM/DL (6.4-8.2)
[2018-10-07] MEDS ORDERED: KETOROLAC 30 MG/ML VIAL (J1885) IV ONE (13:30)
[2018-10-07] MEDS ORDERED: ONDANSETRON 4MG/2ML VIAL (J2405) IV ONE (13:30)
[2018-10-07 16:23] VITALS: BP 133/60
--- NOTE | 2018-10-12 14:18 | ED PDOC ---
Post-Departure Follow-Up dr saha faxed formal report of ct abd/p for fu Miranda Damico MD Oct 12, 2018 14:18
== END 2018-10-07 16:24 | disposition home or self-care (01) ==
LOC: M ED 10:00
DX: G89.29 Other chronic pain (principal); R10.9 Unspecified abdominal pain; K43.6 Other and unspecified ventral hernia with obstruction, without gangrene; E11.9 Type 2 diabetes mellitus without complications; E78.5 Hyperlipidemia, unspecified; I10 Essential (primary) hypertension; Z86.718 Personal history of other venous thrombosis and embolism; J45.909 Unspecified asthma, uncomplicated; F32.9 Major depressive disorder, single episode, unspecified; Z93.2 Ileostomy status; Z88.0 Allergy status to penicillin; Z88.2 Allergy status to sulfonamides; Z88.8 Allergy status to other drugs, medicaments and biological substances; Z88.1 Allergy status to other antibiotic agents; Z88.5 Allergy status to narcotic agent; Z91.041 Radiographic dye allergy status; Z91.018 Allergy to other foods; Z91.89 Other specified personal risk factors, not elsewhere classified; Z91.02 Food additives allergy status
CPT/HCPCS: 74176; 80048; 80076; 81001; 83605; 83690; 85025; 87507; 96374; 96375; 99283; J1885; J2405

== ENCOUNTER → 2018-10-13 | Outpatient (CLI) | payer OTHER ==
[~2018-10-13] MED LIST changes: +BUPIVACAINE HCL 0.25% 10 ML VIAL As Ordered ONE; +BUPIVACAINE HCL 0.25% 30 ML VIAL As Ordered ONE; +TRIAMCINOLONE ACETONIDE SUSP 40 MG/ML VIAL (J3301) As Ordered ONE
--- NOTE | 2018-10-23 00:59 | ECWPNPC ---
PATIENT NAME: GLENN FELDER : 1960 GENDER: FEMALE VISIT DATE: 10/13/2018 DISCHARGE DATE: 10/13/18945 VISIT LOCKED DATE TIME: PHYSICIAN: ELLIS HECTOR MD RESOURCE: ELLIS HECTOR MD REASON FOR APPOINTMENT 1. TPI ABDOMINAL AREA HISTORY OF PRESENT ILLNESS HISTORY OF PRESENT ILLNESS: PAIN THE PATIENT DESCRIBES THE PAIN... FALL RISK SCREENING: SCREENING :NO FALLS REPORTED IN THE LAST YEAR CURRENT MEDICATIONS TAKING RANITIDINE HCL 150 MG TABLET 1 TABLET ORALLY TWICE A DAY, NOTES: 7 8PM TAKING MAY SAVAGE BAGS CLEAR VELCRO CLOSER ([id number]) ICD:V55.3 CHANGE NEEDED (EDUARD) TAKING MAY HAVE SAVAGE WAFERS NEW IMAGE SKIN BARRIERS FLATING FLANGES ICD: V55.3 ([id number] 2 1/2 CHANGE NEEDED (EDUARD) TAKING BABY WIPES 1 MISCELLANEOUS DIRECTED TOPICALLY PRN DX:569.62 TAKING COMPRESSION STOCKINGS 20/30 STOCKINGS 724.4 THIGH HIGHS DAILY TAKING ZOCOR 20 20MG TABLET 1 TAB(S) ORAL AT BEDTIME, NOTES: 7 8AM TAKING HEPARIN SODIUM (PORCINE) 5000 UNIT/ML SOLUTION INJECTION 1X MONTH, NOTES: 2 WEEKS AGO TAKING ONE TOUCH ULTRA SYSTEM KIT METER DIRECTED ONE TOUCH ULTRA MINI-METER ONLY DX: E11.9, E11.21, E11.22, E11.65 TAKING DOCUSATE SODIUM 50 MG/5ML LIQUID 5 ML NEEDED ORALLY BID PRN CONSTIPATIO, NOTES: 7 8PM TAKING MAY HAVE - - DIRECTED ABDOMINAL BINDER WITH STOMA CUT-OUT WEAR DAILY FOR ABDOMINAL HERNIA PAIN. DX: K43.9 TAKING SYRINGE/NEEDLE (DISP) 1CC DIABETIC 1 SQ FOUR TIMES DAILY/DX:E11.9 IDDM TAKING SYRINGE 25G X 1 MISCELLANEOUS DIRECTED INTRAMUSCULAR ONCE DAILY; ICD:R11.0 TAKING BD SYRINGE/NEEDLE 23G X 1 MISCELLANEOUS 1 SYRINGE INTRAMUSCULARLY TWICE DAILY DX:R11.0 TAKING ONETOUCH LANCETS DELICA LANCET 1 SUBCUTANEOUSLY 4 TIMES A DAY/DX:E11.90 IDDM TAKING NEEDLE (DISP) 30G X 1 MISCELLANEOUS DX: E11.9 FOR LEVEMIR PEN VITRO DAILY TAKING ONE TOUCH ULTRA 2 LANCET 1 LANCET LANCET ICD:250.02 IDDM FOUR TIMES DAILY TAKING BLOOD GLUCOSE TEST STRIP - STRIP 1 STRIP IN VITRO 4 TIMES DAILY TAKING SPIRIVA RESPIMAT 1.25 MCG/ACT AEROSOL SOLUTION 2 PUFFS INHALATION TWICE DAILY, NOTES: 10/13 4AM TAKING LAC-HYDRIN 12 % LOTION 1 APPLICATION TO AFFECTED AREA EXTERNALLY TWICE A DAY, NOTES: 10/13 9AM TAKING SUCRALFATE 1 GM TABLET CRUSH 1 TABLET AND MIX INTO A SLURRY WITH 10-15MLS OF WATER ORALLY TWICE A DAY, NOTES: 10/12 8PM TAKING MIRALAX 1 SUSPENSION 17 GRAMS ORALLY TWICE DAILY, NOTES: 10/12 8PM TAKING AMITRIPTYLINE HCL 50 MG TABLET DIRECTED ORALLY 1 TAB IN AM AND 3 TABS AT BEDTIME, NOTES: 10/12 8PM TAKING SIMETHICONE 80 MG TABLET CHEWABLE 2 TABLETS AFTER MEALS AND AT BEDTIME NEEDED ORALLY THREE TIMES A DAY NEEDED FOR ABDOMINAL PAIN AND DISTENTION, NOTES: 10/12 8PM TAKING STIOLTO RESPIMAT 2.5-2.5 MCG/ACT AEROSOL SOLUTION INHALE TWO PUFFS BY MOUTH ONCE DAILY AT THE SAME TIME EACH DAY INHALATION , NOTES: 10/12 8PM TAKING ALCOHOL PREPS _ WIPE DX: E11.9 TOPICAL 5 TIMES A DAY NEEDED FOR INJECTIONS TAKING TEMO ALLERGY 180 MG TABLET 1 TABLET NEEDED ORALLY ONCE A DAY, NOTES: 10/12 8PM TAKING OMNARIS 50 MCG/ACT SUSPENSION 2 SPRAYS IN EACH NOSTRIL NASALLY ONCE A DAY, NOTES: 10/12 8AM TAKING TOUJEO SOLOSTAR 300 UNIT/ML SOLUTION PEN-INJECTOR DIRECTED SUBCUTANEOUS 70 UNITS, NOTES: 10/12 8AM TAKING NOVOLOG MIX 70/30 (70-30) 100 UNIT/ML SUSPENSION 35 UNITS SUBCUTANEOUS DAILY AT THE MIDDAY MEAL, NOTES: 10/12 12NOON TAKING SM ALCOHOL PREP 70 % PAD USE DIRECTED 5 TIMES A DAY NEEDED FOR INJECTIONS TAKING LACTULOSE 20 GM/30ML SOLUTION 15 ML ORALLY THREE TIMES DAILY, NOTES: 10/13 0330 TAKING LOPID 600 MG TABLET 1 TABLET ORALLY DAILY, NOTES: 10/12 8AM TAKING METOCLOPRAMIDE HCL 5 MG/5ML SOLUTION 10 MG (10ML) ORALLY 30 MINUTES BEFORE MEALS AND AT BEDTIME NEEDED, NOTES: 10/12 8PM TAKING ZOFRAN 4 MG/2ML SOLUTION 4 MG INJECTION BID AT LEAST 8H APART, NOTES: 10/12 9PM TAKING ASTELIN 137 MCG/SPRAY SOLUTION 1 PUFF IN EACH NOSTRIL NASALLY TWICE A DAY, NOTES: 10/12 8PM TAKING TIZANIDINE HCL 2 MG TABLET 1/2 TABLET ORALLY TWICE A DAY, NOTES: 10/12 8PM TAKING ONETOUCH ULTRA TEST - STRIP USE 1 STRIP FOUR TIMES A DAY TAKING KLOR-CON M20 20 MEQ TABLET EXTENDED RELEASE 1 TABLET ORALLY ONCE A DAY, NOTES: 10/12 8AM TAKING HYDROMORPHONE HCL 4 MG TABLET 1/2 -1 TABLET ORALLY Q8H PRN MDD3, NOTES: 10/13 1AM TAKING ONETOUCH DELICA LANCETS 33G - MISCELLANEOUS USE DIRECTED FOUR TIMES A DAY TAKING BD PEN NEEDLE ULTRAFINE 29G X 12.7MM MISCELLANEOUS DIRECTED TOPICALLY DAILY TAKING DIFLUCAN 150 MG TABLET 1 TABLET ORALLY ONCE A WEEK, NOTES: 10/12 8PM TAKING ONDANSETRON HCL 4 MG/2ML SOLUTION USE 1 VIAL (4MG) TWO TIMES A DAY AT LEAST 8 HOURS APART NOT-TAKING A & D ZINC OXIDE - CREAM APPLY TO PERINEAL AREA AFTER EACH BM EXTERNALLY DIRECTED NOT-TAKING TRIAMCINOLONE ACETONIDE 0.1 % CREAM APPLY A THIN LAYER TO ABDOMEN EXTERNALLY TWICE A DAY NOT-TAKING CLOTRIMAZOLE-BETAMETHASONE 1-0.05 % CREAM 1 APPLICATION TO AFFECTED AREA TOPICALLY TO LEFT ABDOMEN TWICE A DAY NOT-TAKING ZOFRAN ODT 4 MG TABLET DISINTEGRATING DIRECTED ORALLY BID NOT-TAKING SYMBICORT 160-4.5 MCG/ACT AEROSOL 2 PUFFS INHALATION TWICE A DAY NOT-TAKING SIMETHICONE 125 MG TABLET CHEWABLE 1 TABLET NEEDED ORALLY FOUR TIMES A DAY PRN ABDOMINAL DISTENTION OR PAIN, NOTES: PRN MEDICATION LIST REVIEWED AND RECONCILED WITH THE PATIENT PAST MEDICAL HISTORY DM II WITH NEUROPATHY, HBA1C GOAL IS 8.0 FOR NOW B/C OF RISK OF HYPOGLYCEMIA, CONSIDER LOWER IF CONSISTENTLY ACHIEVED ASTHMA HYPERLIPIDEMIA GERD NEPHROLITHIASIS 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 ALLERGIC RHINITIS CHRONIC MAXILLARY SINUSITIS CHRONIC HEADACHES (PAIN MANAGEMENT) CHRONIC PAIN SYNDROME/RSD (PAIN MANAGEMENT) PERSONAL HISTORY OF VENOUS THROMBOSIS AND EMBOLISM (RESOLVED 12/19/2009) ABDOMINAL HERNIA ALLERGIES IODINE: NERVES, TIGHT MUSCLES - SIDE EFFECTS GABAPENTIN: NERVOUS SYSTEM,SHAKEY - SIDE EFFECTS GABITRIL: NERVOUS - SIDE EFFECTS KETOROLAC TROMETHAMINE: VOMITING - SIDE EFFECTS MEPERIDINE HCL: OUT OF BODY EXPERIENCE - SIDE EFFECTS MORPHINE SULFATE: SEVERE H/A WITH BIG DOSE - SIDE EFFECTS PROMETHAZINE HCL: OUT OF BODY EXPERIENCE - SIDE EFFECTS TRAMADOL: SHAKES - SIDE EFFECTS OXYCODONE: VOMITING,HIVES - ALLERGY PENICILLIN (FOR ALLERGIES USE ONLY): HIVES - ALLERGY FENTANYL: NERVOUS - SIDE EFFECTS DROPERIDOL: OUT OF BODY - SIDE EFFECTS CODEINE SULFATE: OUT OF BODY EXPERIENCE - SIDE EFFECTS PHENOTHIAZINES: NERVOUS SYSTEM - SIDE EFFECTS QUINOLONES- CIPRO,TEQUIN: HIVES - ALLERGY RED FOOD DYE: RASH - ALLERGY LIDODERM (LICOCANINE): HEART RACES - SIDE EFFECTS SULFA: HIVES - ALLERGY ASPIRIN: HIVES - ALLERGY ATIVAN: HALLUCINATIONS - SIDE EFFECTS AZITHROMYCIN: HIVES - ALLERGY BACLOFEN: AFFECTED NERVOUS SYT - SIDE EFFECTS LYRICA: SHAKES, EVERYTHING IS BLACK - SIDE EFFECTS VICODIN: CONFUSION - SIDE EFFECTS MACROBID: HIVES, BLURRED VISION - ALLERGY READI-CAT: HIVES - ALLERGY ALBUTEROL SULFATE: COUGH - ALLERGY GASTROGRAFIN: ONLY 1 BOTTLE PER TEST DAY (CAN NOT TOLERATE ANY MORE THAN 1 BOTTLE) - CONTRAINDICATION LATEX (FOR ALLERGY USE ONLY): DIFFICULTY - ALLERGY SURGICAL HISTORY NO PERSONAL HX OF SEVERE REACTION TO ANESTHESIA, HER BROTHER HAS "HAD HIS THROAT CLOSE OFF TWO DIFFERENT TIMES" WITH GENERAL ANESTHESIA SCALP TUMOR 1984 LUMPECTOMIES - REPORTED BENIGN BILATERAL 16 AND 21 YO TOTAL HYSTERECTOMY-DUE TO OVARIAN CYSTS/MASS 21 YO BILAT SYMPATHECTOMY 1987 AV FISTULA REPAIR L LEG 1988 CHOLECYSTECTOMY LATE SBO 2001 ABDOMINAL HERNIA REPAIR 2004 VENTRAL HERNIA REPAIR 2009 DORSAL COLUMN STIMULATOR TAKEN OUT AND NEW ONE IMPLANTED 02/21 SMALL PORTION OF SMALL BOWEL RESECTED AND VENTRAL HERNIA REPAIRS (GOESSLIN) 06/2010 ILEOSTOMY-EDUARD 07/28/12 CYST REMOVED RIGHT NOSTRIL- DR RAJPUT. 09/17/12 REPAIR TWO HERNIAS AND REPAIR OF STOMA 03/26 HERNIA REPAIR X2 08/31/13 PARASTOMAL HERNIA REPAIR- EDUARD 06/26 HERNIA AND STOMA REPAIR-EDUARD 06/11 PERASTOMAL HERNIA REPAIR, WITH A SMALL BOWEL OBSTRUCTION 03/2017 INFUSAPORT PLACMENT ([facility]) 08/2017 HERNIA REPAIR X4 STOMA REVERSAL 10/2017 BATTERY REPLACEMENT FOR STIMULATOR 02/2018 FAMILY HISTORY FATHER: ALIVE, CANCER, DIAGNOSED WITH STROKE, CANCER MOTHER: , OF MYELODYSPLASTIC SYNDROME; WAS ALSO KNOWN TO HAVE CAD, CANCER SIBLINGS: ALIVE 1 BROTHER(S) - HEALTHY. 2 BROTHERS DM, KIDNET FAILURE. SOCIAL HISTORY GENERAL: TOBACCO USE ARE YOU A:NONSMOKER NEVER SMOKER HIV / HEP-C SCREENING HIV TEST OFFERED TO PATIENT:YES DATE OFFERED:07/18/2016 TEST ACCEPTED:NO REASON:PATIENT DECLINED HEP-C TEST OFFERED TO PATIENT:YES DATE OFFERED:07/18/2016 TEST ACCEPTED:NO REASON:PATIENT DECLINED OTHERS AT HOME: NONE. EDUCATION LEVEL OF EDUCATION:[employer] 8TH GRADE DIET: NO CONCENTRATED SWEETS., CARBOHYDRATE CONTROLLED. LANGUAGE LANGUAGES SPOKEN:CENTRAL AFRICAN DOMESTIC VIOLENCE DO YOU FEEL SAFE IN YOUR ENVIRONMENT?YES NEW PATIENT PAIN DIARY FROM 0-10, WHAT LEVEL IS YOUR PAIN TODAY?10 RECREATIONAL DRUG USE DRUG USE?NO EXERCISE: NO REGULAR EXERCISE. LEARNING BARRIERS / SPECIAL NEEDS CHANGE FROM LAST VISIT?NO BARRIERS TO LEARNING?NO HEARING IMPAIRED?NO VISION IMPAIRED?YES :CORRECTIVE LENSES COGNITIVELY IMPAIRED?NO READINESS TO LEARN?YES LEARNING PREFERENCES?NO LEARNING CAPABILITIES PRESENT?YES EMOTIONAL BARRIERS?NO SPECIAL DEVICES?YES :CANE, WHEELCHAIR ANGLE FURNACEMAN NEEDED?NO PAIN CLINIC PFS, CLERGY, PUBLIC HEALTH REFERRALS PFS REFERRAL NEEDED?NO CLERGY REFERRAL NEEDED?NO PUBLIC HEALTH REFERRAL NEEDED?NO WAS THE PROVIDER NOTIFIED OF ANY PERTINENT INFO?YES HAS THE PATIENT BEEN EDUCATED REGARDING HIS/HER PLAN OF CARE?YES HAS THE PATIENT BEEN EDUCATED REGARDING PAIN, THE RISK FOR PAIN, THE IMPORTANCE OF EFFECTIVE PAIN MANAGEMENT, AND THE PAIN ASSESSMENT PROCESS?YES LATEX QUESTIONNAIRE LATEX ALLERGY : HAVE YOU EVER DEVELOPED ANY TYPE OF REACTION AFTER HANDLING LATEX PRODUCTS SUCH RUBBER GLOVES, CONDOMS, DIAPHRAGMS, BALLOONS, SOCKS, OR UNDERWEAR?YES SEE ALLERGY LIST - PLEASE INDICATE :OTHER (DOCUMENT IN NOTES) LATEX ALLERGY : HAVE YOU EVER DEVELOPED ANY TYPE OF REACTION DURING OR AFTER DENTAL APPOINTMENT, VAGINAL/RECTAL EXAMINATION, SURGICAL PROCEDURE, OR ANY OTHER EXPOSURE?YES - PLEASE INDICATE :DENTAL PROCEDURE, VAGINAL EXAM, RECTAL EXAM, SURGICAL PROCEDURE, OTHER (DOCUMENT IN NOTES) LATEX RISK : HAVE YOU EVER HAD ANY DIFFICULTY BREATHING OR HIVES AFTER EATING OR HANDLING ANY FRUITS, OR VEGETABLES; SUCH KIWI, BANANAS, STONE FRUITS, OR CHESTNUTSYES - PLEASE INDICATE : BANANAS, STONE FRUITS LATEX RISK : DO YOU HAVE A PREVIOUS PERSONAL HISTORY OF MORE THAN NINE SURGERIES, SPINA BIFIDA, OR REPEATED CATHERTIZATIONS? YES - PLEASE INDICATE : > 9 SURGERIES LATEX RISK : ARE YOU FREQUENTLY EXPOSED TO LATEX PRODUCTS IN YOUR OCCUPATION?NO DATE ASKED : 10/13/2018 CAFFEINE CAFFEINE USE?NO ADVANCE DIRECTIVE ADVANCE DIRECTIVE DISCUSSED WITH PATIENT:YES HCP - BROTHER (LUCAS); COPY PLACED IN RECORDS CONGREGATION [id number] PRESBYTERIAN MARITAL STATUS: SINGLE. ALCOHOL SCREENING DID YOU HAVE A DRINK CONTAINING ALCOHOL IN THE PAST YEAR?NO POINTS0 INTERPRETATIONNEGATIVE OCCUPATION: DISABLED. SEXUAL HX HAD SEX IN THE LAST 12 MONTHS (VAGINAL, ORAL, OR ANAL)?NO HAVE YOU EVER HAD AN STD?NO REVIEWED WITH PATIENT 05/01/18 0915 JS. HOSPITALIZATION/MAJOR DIAGNOSTIC PROCEDURE [facility]- SMALL BOWEL OBSTRUCTION, WAS IN HOSPITAL 11 DAYS 09/2015 [facility]- SMALL BOWEL OBSTRUCTION, WAS IN HOSPITAL IN 5 DAYS 03/2016 [facility]- SMALL BOWEL OBSTRUCTION 04/12/16-04/17/16 [facility]- SMALL BOWEL OBSTRUCTION 06/2016 [facility]- SMALL BOWEL OBSTRUCTION 03/17/17-04/18/17 REVIEW OF SYSTEMS REVIEWED BY: PROVIDER: . CONSTITUTIONAL: ANY CHANGE IN YOUR MEDICAL CONDITION? NO . CHILLS NO . FEVER NO . INFECTION: DO YOU HAVE NEW INFECTIONS? NO . DO YOU HAVE HISTORY OF MRSA? NO . MUSCULOSKELETAL: ANY NEW PATTERNS OF PAIN OR NUMBNESS? NO . GASTROENTEROLOGY: ANY NEW CHANGE IN BOWEL CONTROL? NO . GENITOURINARY: ANY NEW CHANGE IN BLADDER CONTROL? NO . IS THERE A CHANCE YOU COULD BE ? NO . HEMATOLOGY/LYMPH: DO YOU TAKE ANY BLOOD THINNERS? (FOR EXAMPLE- COUMADIN, PLAVIX, AGGRENOX, PLATEL, PRADAXA, OR XARELTO) NO . WHEN WAS YOUR LAST DOSE? DATE: TIME: . NEUROLOGY: HAVE YOU FALLEN IN THE PAST 12 MONTHS? NO . ANY NEW EXTREMITY NUMBNESS OR WEAKNESS? NO . CARDIOLOGY: DO YOU HAVE A PACEMAKER OR DEFIBRILLATOR? NO . RESPIRATORY: HAVE YOU BEEN SICK IN THE PAST WEEK? NO . FEVER NO . FLU LIKE SYMPTOMS? NO . COUGH NO . INTEGUMENTARY: DO YOU HAVE ANY RASHES OR OPEN SORES? NO . ALLERGIC/IMMUNO: ARE YOU ALLERGIC TO IV DYE? YES . ANY NEW ALLERGIES? NO . PSYCHIATRIC: DO YOU HAVE THOUGHTS OF HURTING YOURSELF OR SOMEONE ELSE? NO . ARE YOU ABUSED, NEGLECTED, OR IN AN UNSAFE ENVIRONMENT? NO . ENDOCRINOLOGY: ARE YOU DIABETIC? TYPE 2 . OTHER: DO YOU NEED ANY PRESCRIPTIONS? NO . IF YES, PLEASE LIST: ____ . ANY NEW PROBLEMS WITH YOUR MEDICATIONS? NO . WHEN DID YOU LAST EAT? 10/12 8PM . WHEN DID YOU LAST DRINK? 10/12 8PM . WHAT DID YOU LAST DRINK? WATER . NAME OF PERSON DRIVING YOU HOME? BROTHER OR FATHER . DO YOU HAVE ANY OTHER QUESTIONS OR CONCERNS NO . VITAL SIGNS WT 183.4 LBS, HT 67 IN, BMI 28.72 INDEX, BP 127/59 MM HG, HR 89 /MIN, RR 18 /MIN, TEMP 96.4 F, OXYGEN SAT % 98%, SAFE IN ENV? (Y/N) Y, NA INITIALS SC 08:50, REVIEWED BY: KEVYN. ASSESSMENTS MYALGIA, OTHER SITE - M79.18 (PRIMARY) PROCEDURES PN TRIGGER POINT INJECTION WITH STEROIDS PRE PROCEDURE DIAGNOSIS 1. MYALGIA 2. PAIN AT ABDOMINAL AREA POST PROCEDURE DIAGNOSIS 1. MYALGIA 2. PAIN AT ABDOMINAL AREA PROCEDURE TRIGGER POINT INJECTION AT ABDOMINAL AREA SURGEON DR. ELLIS HECTOR GEOTECHNICAL ENGINEERING TECHNICIAN NONE ANESTHESIA LOCAL PRE PROCEDURE NOTE THE PATIENT HAS A HISTORY OF CHRONIC PAIN AT THE ABDOMINAL AREA. I EVALUATE THE PATIENT AND REVIEWED THE CHART. THERE IS EVIDENCE OF BANDS OF TISSUE WITH RESTRICTION OF MOVEMENT AND PRESENCE OF TRIGGER POINT AT THE AFFECTED AREA. I WENT OVER THE RISKS, ALTERNATIVES, AND BENEFITS ASSOCIATED WITH THIS PROCEDURE. THE PATIENT WOULD LIKE TO PROCEED AND GIVE CONSENT TO PERFORMED THE PROCEDURE. THE PATIENT DENIES UNEXPLAINABLE WEIGHT LOSS, FEVER, CHILLS, OR NEW CHANGES IN URINARY OR BOWEL CONTROL DESCRIPTION OF PROCEDURE THE PATIENT WAS BROUGHT TO THE PROCEDURE ROOM AND PLACED IN THE SITTING POSITION. THE AREA WAS CLEANED WITH ALCOHOL. THE PROCEDURE WAS DONE USING ASEPTIC STERILE TECHNIQUE. I CHECKED LATERALITY AND THE LEVEL WHERE THE PROCEDURE WAS GOING TO BE PERFORMED WITH THE PATIENT AND THE SUPPORTING STAFF AT THE MOMENT OF THE TIME OUT IN THE PROCEDURE ROOM. USING A 25-GAUGE NEEDLE, TRIGGER POINTS WERE INJECTED AT THE ABDOMINAL AREA WITH A TOTAL OF 40 ML OF BUPIVACAINE 0.25% AND KENALOG 40 MG. THERE WAS NO EVIDENCE OF BLOOD, PARESTHESIA OR CEREBROSPINAL FLUID DURING THE PROCEDURE. THE PATIENT WAS SENT TO THE RECOVERY ROOM. THE PATIENT WAS MOVING THE EXTREMITIES AND DOING WELL. THERE WAS NO COMPLICATION DURING THE PROCEDURE POST PROCEDURE NOTE THE PATIENT WILL BE SEEN IN A FOLLOW UP IN THE NEXT FEW WEEKS. INSTRUCTIONS WERE GIVEN, QUESTIONS WERE ANSWERED, AND THE PATIENT EXPRESSED UNDERSTANDING AND AGREES WITH THE PLAN. I, CYNTHIA CUENCA, DOCUMENTED THE ABOVE INFORMATION ACTING A SCRIBE FOR DR. HECTOR. I HAVE REVIEWED THE ABOVE DOCUMENT, WRITTEN BY CYNTHIA APPIAH AND I VERIFY THAT IT IS ACCURATE. PROCEDURE CODES 88559 INJ TRIGGER POINT / MUSC DISPOSITION & COMMUNICATION FOLLOW UP 3 WEEKS ELECTRONICALLY SIGNED BY ELLIS HECTOR MD, MD ON 10/22/2018 AT 01:46 PM EDT DISCLAIMER : THIS IS A VISIT SUMMARY EXTRACTED FROM THE [employer] CHART. IT IS NOT A COPY OF THE [employer] PROGRESS NOTE. MTDD
== END ==
LOC: M PAIN 09:15
PROVIDERS: ATTEND Anesthesiology
DX: M79.18 Myalgia, other site (principal); E11.40 Type 2 diabetes mellitus with diabetic neuropathy, unspecified; J45.909 Unspecified asthma, uncomplicated; E78.5 Hyperlipidemia, unspecified; K21.9 Gastro-esophageal reflux disease without esophagitis; G89.4 Chronic pain syndrome; Z86.711 Personal history of pulmonary embolism; Z86.718 Personal history of other venous thrombosis and embolism; Z90.710 Acquired absence of both cervix and uterus; Z90.49 Acquired absence of other specified parts of digestive tract; Z79.4 Long term (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; Z79.899 Other long term (current) drug therapy; Z88.5 Allergy status to narcotic agent; Z88.2 Allergy status to sulfonamides; Z88.6 Allergy status to analgesic agent; Z88.1 Allergy status to other antibiotic agents; Z88.8 Allergy status to other drugs, medicaments and biological substances; Z91.048 Other nonmedicinal substance allergy status; Z91.040 Latex allergy status
CPT/HCPCS: 20552; J3301

== ENCOUNTER → 2018-10-23 | Outpatient (CLI) | payer OTHER ==
[~2018-10-23] MED LIST changes: -BUPIVACAINE HCL 0.25% 10 ML VIAL As Ordered ONE; -BUPIVACAINE HCL 0.25% 30 ML VIAL As Ordered ONE; -TRIAMCINOLONE ACETONIDE SUSP 40 MG/ML VIAL (J3301) As Ordered ONE
--- NOTE | 2018-10-23 18:08 | REP ---
ULTRASOUND LEFT BREAST: Real-time sonographic evaluation of the left beast was performed. Reportedly there is an area of redness and swelling between the 8 and 10 o'clock left breast. There is an ill-defined oval hypoechoic area in a subcutaneous location at the site of swelling and redness measuring 2.0 x 0.8 x 1.8 cm. There is surrounding hyperemia with Doppler color evaluation. This could represent a developing phlegmon and possible abscess. Clinical correlation and followup is recommended. Electronically Signed by Geovanni Camejo MD 10/26/2018 01:08 P
== END ==
LOC: M RAD 12:46
PROVIDERS: ATTEND Family Medicine
DX: R92.8 Other abnormal and inconclusive findings on diagnostic imaging of breast (principal); L98.9 Disorder of the skin and subcutaneous tissue, unspecified

== ENCOUNTER 2018-10-29 09:56 | Outpatient (CLI) | payer OTHER ==
[~2018-10-29] VITALS: Ht 170.2 cm; Wt 77.3 kg
[~2018-10-29 09:56] MED LIST changes: +SODIUM CHLORIDE 0.9% INJ 10 ML SYR IV SCH
[2018-10-29 10:10] VITALS: BP 127/66
[2018-10-29 11:09] LABS: BLOOD UREA NITROGEN 14 MG/DL (7-18); CALCIUM LEVEL 10.4 MG/DL (8.5-10.1); CARBON DIOXIDE LEVEL 29 MEQ/L (21-32); CHLORIDE LEVEL 104 MEQ/L (98-107); GLOMERULAR FILTRATION RATE > 60.0 (>51); GLUCOSE, FASTING 168 MG/DL (70-100); POTASSIUM SERUM 4.4 MEQ/L (3.5-5.1); SODIUM LEVEL 138 MEQ/L (136-145)
== END 2018-10-29 10:30 | disposition home or self-care (01) ==
LOC: M INFU 09:56
PROVIDERS: ATTEND Family Medicine
DX: E11.65 Type 2 diabetes mellitus with hyperglycemia (principal); E83.42 Hypomagnesemia; E87.6 Hypokalemia; Z88.0 Allergy status to penicillin; Z88.1 Allergy status to other antibiotic agents; Z88.2 Allergy status to sulfonamides; Z88.5 Allergy status to narcotic agent; Z91.040 Latex allergy status; Z91.041 Radiographic dye allergy status; Z91.018 Allergy to other foods

== ENCOUNTER → 2018-11-09 | Outpatient (REF) | payer OTHER ==
[~2018-11-09] MED LIST changes: +AZEL0.05 OD; +AZEL1SPR3 NARES; +FLUT1INH3 INH; +LEVOTAB10 PO; +OMNA50SP NARES; -SODIUM CHLORIDE 0.9% INJ 10 ML SYR IV SCH; +STIO1AER IN
[2018-11-09 14:12] LABS: CLOSTRIDIUM DIFFICILE PCR NEGATIVE (NEGATIVE)
== END ==
LOC: M LAB REF 11:57
PROVIDERS: ATTEND Nurse Practitioner
DX: R19.7 Diarrhea, unspecified (principal)

== ENCOUNTER 2018-11-10 12:40 | Emergency (ER) | payer OTHER ==
[~2018-11-10] VITALS: Ht 170.2 cm; Wt 81.8 kg
[~2018-11-10 12:40] MED LIST changes: -AZEL0.05 OD; -AZEL1SPR3 NARES; -FLUT1INH3 INH; -LEVOTAB10 PO; -OMNA50SP NARES; -STIO1AER IN
[2018-11-10] MEDS ORDERED: SODIUM CHLORIDE 0.9% INJ 10 ML SYR IV PRN (13:30)
[2018-11-10] MEDS ORDERED: CEPH500C PO (13:34)
[2018-11-10 13:42] LABS: BASO % 0.5 % (0.0-1.0); EOS # 0.1 10^3/uL (0.0-0.50); EOS % 0.6 % (0.0-3.0); HEMATOCRIT 39.5 % (36.0-47.0); HEMOGLOBIN 12.8 g/dl (12.0-15.5); LYMPH # 1.8 10^3/uL (1.5-4.5); LYMPH % 21.3 % (24.0-44.0); MEAN CORPUSCULAR HEMOGLOBIN 32.7 pg (27.0-33.0); MEAN CORPUSCULAR HGB CONC 32.4 g/dl (32.0-36.5); MONO # 0.7 10^3/uL (0.0-0.8); MONO % 7.8 % (0.0-5.0); NEUTROPHILS # 5.8 10^3/uL (1.8-7.7); NEUTROPHILS % 69.4 % (36.0-66.0); PLATELET COUNT, AUTOMATED 287 10^3/uL (150-450); RED BLOOD COUNT 3.91 10^6/uL (4.00-5.40); WHITE BLOOD COUNT 8.3 10^3/uL (4.0-10.0)
[2018-11-10 14:00] LABS: ALBUMIN 3.5 GM/DL (3.2-5.2); ALT/SGPT 33 U/L (12-78); BILIRUBIN,DIRECT < 0.1 MG/DL (0.0-0.2); BILIRUBIN,TOTAL 0.2 MG/DL (0.2-1.0); BLOOD UREA NITROGEN 14 MG/DL (7-18); CALCIUM LEVEL 11.2 MG/DL (8.5-10.1); CARBON DIOXIDE LEVEL 28 MEQ/L (21-32); CHLORIDE LEVEL 102 MEQ/L (98-107); CREATININE FOR GFR 0.67 MG/DL (0.55-1.30); GLOMERULAR FILTRATION RATE > 60.0 (>51); GLUCOSE, FASTING 146 MG/DL (70-100); LIPASE 98 U/L (73-393); POTASSIUM SERUM 4.2 MEQ/L (3.5-5.1); SODIUM LEVEL 138 MEQ/L (136-145)
[2018-11-10] MEDS ORDERED: HYDROmorphone 2 MG TAB PO ONE (15:45)
--- NOTE | 2018-11-10 16:55 | REP ---
CT of the abdomen pelvis without IV or bowel contrast: Comparison is 10/01/2018. The the patient has a history of colectomy with an ileostomy in the mid abdomen on the left. This is unchanged. Additionally, the patient has a hysterectomy and cholecystectomy. This is unchanged. There is a small peristomal hernia containing a nonobstructed loop of small bowel at the ileostomy. This is unchanged. Inferior to the ileostomy, there is a spigelian hernia containing a nonobstructed loop of small bowel at the left lateral margin of anterior abdominal wall mesh. This is unchanged. There are surgical clips at the rectosigmoid colon, unchanged. The remainder of the colon is been resected. This is unchanged. There are multiple periaortic retroperitoneal surgical clips. These are unchanged. There is no retroperitoneal adenopathy or mass. This is unchanged. There is a hysterectomy. Vaginal cuff and adnexa are unremarkable and unchanged. The bladder is unremarkable and unchanged. The visualized lung garcía demonstrate parenchymal scarring . This is unchanged. The unenhanced hepatic parenchyma, pancreas, spleen, adrenals, kidneys and abdominal aorta are unremarkable. There is a cholecystectomy. This is unchanged. There is no bowel distension or obstruction. Mesentery is unremarkable. There is anterior abdominal wall mesh. This is unchanged. Impression: There has been no significant interval change. Electronically Signed by Geovanni Jordan MD 11/10/2018 04:46 P
[2018-11-10 17:50] VITALS: BP 140/66
== END 2018-11-10 18:09 | disposition home or self-care (01) ==
LOC: M ED 12:40
DX: Z43.3 Encounter for attention to colostomy (principal); R74.8 Abnormal levels of other serum enzymes; R19.7 Diarrhea, unspecified; R10.84 Generalized abdominal pain; E10.9 Type 1 diabetes mellitus without complications; J45.909 Unspecified asthma, uncomplicated; I10 Essential (primary) hypertension; Z86.718 Personal history of other venous thrombosis and embolism; E83.42 Hypomagnesemia; F32.9 Major depressive disorder, single episode, unspecified; E78.5 Hyperlipidemia, unspecified; Z88.0 Allergy status to penicillin; Z88.2 Allergy status to sulfonamides; Z88.8 Allergy status to other drugs, medicaments and biological substances; Z88.1 Allergy status to other antibiotic agents; Z88.5 Allergy status to narcotic agent; Z91.041 Radiographic dye allergy status; Z91.018 Allergy to other foods; Z88.6 Allergy status to analgesic agent; Z91.048 Other nonmedicinal substance allergy status; Z79.899 Other long term (current) drug therapy; Z79.4 Long term (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

== ENCOUNTER 2018-11-12 12:28 | Inpatient (IN) | payer OTHER ==
[~2018-11-12] VITALS: Ht 170.2 cm; Wt 80.2 kg
[~2018-11-12 12:28] MED LIST changes: +ONDA8TAB10 PO; -ONDA8TAB7 PO; -SIMV20TA2 PO; +SIMV20TA22 PO
[2018-11-12] MEDS ORDERED: HYDROMORPHONE HCL 0.5 MG/ 0.5 ML SYRINGE (J1170 PER 1) IV ONE ×3 (13:15→19:15)
[2018-11-12] MEDS ORDERED: ONDANSETRON 4MG/2ML VIAL (J2405) IV ONE (13:15)
[2018-11-12 13:39] LABS: BASO # 0.1 10^3/uL (0.0-0.2); BASO % 0.4 % (0.0-1.0); EOS % 0.2 % (0.0-3.0); HEMOGLOBIN 13.5 g/dl (12.0-15.5); LYMPH # 1.6 10^3/uL (1.5-4.5); LYMPH % 14.3 % (24.0-44.0); MEAN CORPUSCULAR HEMOGLOBIN 32.3 pg (27.0-33.0); MEAN CORPUSCULAR HGB CONC 32.9 g/dl (32.0-36.5); MEAN CORPUSCULAR VOLUME 98.1 fl (80.0-96.0); MONO # 0.8 10^3/uL (0.0-0.8); NEUTROPHILS % 77.8 % (36.0-66.0); PLATELET COUNT, AUTOMATED 319 10^3/uL (150-450); RED BLOOD COUNT 4.18 10^6/uL (4.00-5.40); WHITE BLOOD COUNT 11.5 10^3/uL (4.0-10.0)
--- NOTE | 2018-11-12 13:44 | REP ---
Clinical: Abdominal pain. Rule out obstruction. Technique: Two supine views of the abdomen and pelvis. Findings: Evidence for prior surgery with innumerable surgical larry throughout the abdomen and pelvis and epidural catheter at the lower thoracic level. Ostomy is appreciated overlying the left lower abdominal wall. Bowel gas pattern is nonspecific although small bowel obstruction cannot definitively be excluded. Impression: Postsurgical changes. Small bowel obstruction cannot definitively be excluded. Electronically Signed by Darius Roth MD 11/12/2018 01:36 P
[2018-11-12 13:56] LABS: ALBUMIN 3.7 GM/DL (3.2-5.2); ALT/SGPT 34 U/L (12-78); BILIRUBIN,DIRECT < 0.1 MG/DL (0.0-0.2); BILIRUBIN,TOTAL 0.3 MG/DL (0.2-1.0); BLOOD UREA NITROGEN 13 MG/DL (7-18); CALCIUM LEVEL 11.8 MG/DL (8.5-10.1); CARBON DIOXIDE LEVEL 26 MEQ/L (21-32); CHLORIDE LEVEL 102 MEQ/L (98-107); CREATININE FOR GFR 0.75 MG/DL (0.55-1.30); GLOMERULAR FILTRATION RATE > 60.0 (>51); GLUCOSE, FASTING 95 MG/DL (70-100); SODIUM LEVEL 137 MEQ/L (136-145); TOTAL PROTEIN 8.6 GM/DL (6.4-8.2)
[2018-11-12] MEDS ORDERED: METOCLOPRAMIDE INJ 10MG/2ML VIAL (J2765) IV ONE (14:30)
[2018-11-12] MEDS: GASTROGRAFIN SOLUTION 30ML PO SCH ×2 (14:56→15:00)
--- NOTE | 2018-11-12 19:00 | REPVR ---
EXAM: CT Abdomen and Pelvis Without Contrast EXAM DATE/TIME: 11/12/2018 5:04 PM CLINICAL HISTORY: 58 years old, female; Bloating; Additional info: Abdominal distention; R/O obstruction TECHNIQUE: Imaging protocol: Axial computed tomography images of the abdomen and pelvis without contrast. Coronal and sagittal reformatted images were created and reviewed. Radiation optimization: All CT scans at this facility use at least one of these dose optimization techniques: automated exposure control; mA and/or kV adjustment per patient size (includes targeted exams where dose is matched to clinical indication); or iterative reconstruction. COMPARISON: CT ABD PELVIS W/O CONTRAST 11/10/2018 4:25 PM FINDINGS: Lungs: The lung bases demonstrate subsegmental atelectasis. Heart: Mild cardiomegaly. Liver: Normal. No mass. Gallbladder and bile ducts: Cholecystectomy clips in the gallbladder fossa. Pancreas: The pancreas demonstrates partial fatty replacement. Spleen: Normal. No splenomegaly. Adrenals: Normal. No mass. Kidneys and ureters: The left kidney demonstrates a punctate nonobstructing calculus in the lower pole. No hydronephrosis. Stomach and bowel: Prior colectomy. There is a left abdominal ileostomy. A parastomal hernia containing a loop of small bowel, as before. Bowel extending to the ileostomy is decompressed. New distention of small bowel loops in the right abdomen which demonstrate fecalized content in keeping with stasis. Suggestion of two transition points between distended and decompressed bowel, one in the right lower quadrant and one in the pelvis. No evidence of bowel wall thickening or pneumatosis. Appendix: No evidence of appendicitis. Intraperitoneal space: Normal. No free air. No significant fluid collection. Retroperitoneal space: Retroperitoneal and mesenteric surgical clips again demonstrated. Vasculature: Normal. No abdominal aortic aneurysm. Lymph nodes: No pathologically enlarged lymph nodes. Bladder: Unremarkable as visualized. Reproductive: Prior hysterectomy. Bones/joints: The degree of osseous demineralization is advanced for age. There is a spinal stimulator. Soft tissues: Prior ventral wall hernia repair. There is ventral abdominal wall thinning in the midline. A small bowel and fat containing left ventral wall hernia measures approximately 8.6 x 4.3 cm. This does not contribute to bowel strangulation or obstruction. IMPRESSION: Findings suspicious for a closed loop small bowel obstruction. Electronically signed by: Talya Reeves On 11/12/2018 19:00:45 PM
[2018-11-12] MEDS ORDERED: LIDOCAINE 2% 5ML JELLY UROJET As Ordered ONE (20:56)
[2018-11-12] MEDS: AMITRIPTYLINE 50 MG TAB PO SCH (21:00)
[2018-11-12] MEDS ORDERED: LIDOCAINE 2% 5ML JELLY UROJET TOP ONE (21:00)
[2018-11-12] MEDS: NS 1,000 ML IV SCH (21:12)
[2018-11-12] MEDS ORDERED: AZEL0.05 OD (21:36)
[2018-11-12] MEDS ORDERED: AZEL1SPR3 NARES (21:36)
[2018-11-12] MEDS ORDERED: OMNA50SP NARES (21:51)
[2018-11-12] MEDS ORDERED: STIO1AER IN (21:51)
[2018-11-12] MEDS ORDERED: FLUT1INH3 INH (21:51)
[2018-11-12] MEDS ORDERED: LEVOTAB10 PO (21:51)
--- NOTE | 2018-11-12 22:13 | HPEPDOC ---
[facility] Medical History & Physical Date of Admission Nov 12, 2018 Date of Service: Nov 12, 2018 Attending Physician: RIANNA CROCKER MD History and Physical CHIEF COMPLAINT: Abdomen pain and vomiting for the past 3 days HISTORY OF PRESENT ILLNESS: 58-year-old female with past medical history of numerous abdominal surgeries. Patient developed sharp abdominal pain lower abdomen , mainly around the ileostomy area associated with nausea, vomiting for the past 3 days and worsen. She also has not been emptying her ileostomy bag since Friday because of decreased output. Her abdominal pain, got worst and came to the ER for further evaluation. CAT scan done in the ER and show . Suspicious for a closed loop small bowel obstruction. Patient was given multiple doses of Dilaudid and referred to us for admission PAST MEDICAL HISTORY Diabetes TYPE 2 Chronic asthma. GERD Hyperlipidemia. Abdominal hernia. Nephrolithiasis. PAST SURGICAL HISTORY: Patient has numerous abdominal surgery which short bowel and ileostomy,. Total hysterectomy and infusion port placement SOCIAL HISTORY: She denies ever smoking, drinks alcohol or drug use FAMILY HISTORY: Reviewed, noncontributory for this admission, but father has history of cancer and mother. Myelodysplastic syndrome ALLERGIES: Please see below. REVIEW OF SYSTEMS: Positive abdominal pain. Positive nausea, vomiting. Negative chest pain, shortness of breath or chills. The rest of the report. Review of systems normal HOME MEDICATIONS: Please see below. PHYSICAL EXAMINATION: VITAL SIGNS: Temperature 98.9, pulse 101, respiratory rate 18, blood pressure 119/56, pulse oximetry 99 % on room air. GENERAL APPEARANCE: Patient lying in bed with NG tube in place draining yellowish fluid. HEENT: Dry mucous membranes. CARDIOVASCULAR: S1, S2, regular, no murmur heard. There is a port on the left chest LUNGS: Clear bilaterally. No wheezes, no rales. ABDOMEN: Very tender to palpation of lower abdomen, but mostly her left lower abdomen and positive ileostomy bag Decreased bowel sounds. Left lower abdomen.. EXTREMITIES: No edema, 2+ pulses bilateral extremity NEUROLOGICAL: Moving all extremities. Normal reflexes. Nonfocal. PSYCHIATRIC: A little bit anxious but very pleasant LABORATORY DATA: See below. IMAGING: C CAT scan impression below;ct abd/pelvis IMPRESSION: Findings suspicious for a closed loop small bowel obstruction. MICROBIOLOGY: Please see below. ASSESSMENT/PLAN #1. Small bowel obstruction. Plan is to keep patient nothing by mouth. IV hydration. Continue NG tube with low intermittent suction. Surgery already evaluated patient and will follow on consult. Admit to telemetry because of high dose of Dilaudid, so we will need monitor bed. #2. Abdominal pain. Secondary to SBO .Dilaudid when necessary for pain #3. Nausea, vomiting secondary to SBO. Zofran when necessary for nausea, vomiting, and keep nothing by mouth and hydration. #4. Dehydration secondary to nausea, vomiting. IV hydration #5. Diabetic type II. Keep nothing by mouth for now and monitor blood sugar with low-dose insulin, and would adjust to high dose if needed #6 .Chronic asthma Albuterol when necessary for shortness of breath #7. GERD Stable do Pepcid IV for now #8. Chronic pain On dilaudid when necessary #9, hyperlipidemia On medication #10. Diabetic neuropathy Medications Heparin subcutaneous for DVT prophylaxis. Patient stable at present. Patient will be managed by surgery and hospitalist medicine. Culture Dilaudid when necessary for pain and monitor cardiac and respiratory status. Discussed with Dr. Crocker hospitalists. Time spent 45 minutes Vital Signs Vital Signs Date Time Temp Pulse Resp B/P (MAP) Pulse Ox O2 Delivery O2 Flow Rate FiO2 11/12/18 20:00 101 18 119/56 (77) 99 Nasal Cannula 2.0 11/12/18 12:41 98.9 Laboratory Data Labs 24H Laboratory Tests 2 11/12/18 13:23: Immature Granulocyte % (Auto) 0.3, White Blood Count 11.5H, Red Blood Count 4.1 8, Hemoglobin 13.5, Hematocrit 41.0, Mean Corpuscular Volume 98.1H, Mean Corpuscular Hemoglobin 32.3, Mean Corpuscular Hemoglobin Concent 32.9, Red Cell Distribution Width 14.1, Platelet Count 319, Neutrophils (%) (Auto) 77.8H, Lymphocytes (%) (Auto) 14.3L, Monocytes (%) (Auto) 7.0H, Eosinophils (%) (Auto) 0.2, Basophils (%) (Auto) 0.4, Neutrophils # (Auto) 9.0H, Lymphocytes # (Auto) 1.6, Monocytes # (Auto) 0.8, Eosinophils # (Auto) 0.0, Basophils # (Auto) 0.1, Nucleated Red Blood Cells % (auto) 0.0, Anion Gap 9, Glomerular Filtration Rate > 60.0, Calcium Level 11.8H, Aspartate Amino Transf (AST/SGOT) 23, Alanine Aminotransferase (ALT/SGPT) 34, Alkaline Phosphatase 155H, Total Bilirubin 0.3, Direct Bilirubin < 0.1, Total Protein 8.6H, Albumin 3.7, Albumin/Globulin Ratio 0.76L 11/12/18 13:30: POC Lactate (Misc Panel) 3.17*H 11/12/18 18:03: Lactic Acid Level 1.4 CBC/BMP Laboratory Tests 11/12/18 13:23 Red Blood Count 4.18, Mean Corpuscular Volume 98.1 H, Mean Corpuscular Hemoglobin 32.3, Mean Corpuscular Hemoglobin Concent 32.9, Red Cell Distribution Width 14.1, Neutrophils (%) (Auto) 77.8 H, Lymphocytes (%) (Auto) 14.3 L, Mo nocytes (%) (Auto) 7.0 H, Eosinophils (%) (Auto) 0.2, Basophils (%) (Auto) 0.4, Neutrophils # (Auto) 9.0 H, Lymphocytes # (Auto) 1.6, Monocytes # (Auto) 0.8, Eosinophils # (Auto) 0.0, Basophils # (Auto) 0.1 Home Medications Scheduled Amitriptyline HCl (Amitriptyline HCl) 50 Mg Tab, 150 MG PO QHS Amitriptyline HCl (Amitriptyline HCl) 50 Mg Tab, 50 MG PO QAM Ammonium Lactate (Ammonium Lactate) 12 % Lot, 1 DOSE TOP 3XW SUN, MON, THURS - APPLIED TO BACK AND LEGS Azelastine HCl (Azelastine HCl) 0.1% [place].pump, 1 SPRAY NARES BID Budesonide/Formoterol (Symbicort 160-4.5 Mcg Inhaler) 60 Puff/Inhaler Aers, 2 PUFF INH BID Cephalexin (Cephalexin) 500 Mg Capsule, 500 MG PO BID PATIENT STATES SHE WAS TAKEN OFF THIS MEDICATION DUE TO NAUSEA Cetirizine HCl (Cetirizine HCl) 10 Mg Tab, 10 MG PO DAILY Ciclesonide (Omnaris) 50 Mcg/Act [place].pump, 2 SPRAY NARES DAILY Fluticasone Propion/Salmeterol (Fluticasone-Salmeterol 232-14) 1 Each Aer.pow.ba, 1 PUFF INH BID Gemfibrozil (Lopid) 600 Mg Tab, 600 MG PO DAILY Insulin Glargine,Hum.rec.anlog ([place]jeo Solostar) 300 Unit/Ml Inj, 70 UNIT SC QAM Insulin NPH Hum/Reg Insulin Hm (Novolin 70-30 100 Unit/ml Vial) 1 Inj Inj, 35 UNITS SC DAILY TAKES AT LUNCHTIME Lactulose (Lactulose) 10 Gm/15 Ml Noelle, 15 ML PO TID Levocetirizine Dihydrochloride (Levocetirizine Dihydrochloride) 5 Mg Tablet, 5 MG PO DAILY Metoclopramide HCl (Metoclopramide HCl) 10 Mg/10 Ml Soln, 10 MG PO ACHS Multivitamins (Thera M Plus Tablet) 1 Tab Tab, 1 TAB PO DAILY Potassium Chloride (Klor-Con M20) 20 Meq Tabcr, 20 MEQ PO DAILY Ranitidine HCl (Ranitidine HCl) 150 Mg Tab, 1 TAB PO BID Simethicone (Simethicone) 180 Mg Cap, 180 MG PO ACHS Simvastatin (Zocor) 20 Mg Tab, 20 MG PO QHS Sucralfate (Sucralfate) 1 Gm Tab, 1 GM PO BID CRUSH AND MAKE SLURRY WITH 10 TO 15ML OF WATER Tiotropium Br/Olodaterol HCl (Stiolto Respimat Inhal [place]) 4 Gm Mist.inhal, 2 PUFFS IN DAILY Tizanidine HCl (Tizanidine HCl) 2 Mg Tab, 1 MG PO BID Triamcinolone Acetonide (Nasacort) 55 Mcg/Act Spr, 2 SPRAY NA QHS Scheduled PRN Hydromorphone HCl (Dilaudid) 4 Mg Tab, 4 MG PO Q4H PRN for PAIN 1/2 TO 1 TAB - MDD 5 TABLETS Ondansetron HCl/Pf (Ondansetron HCl 4 mg/2 ml Vial) 4 Mg/2 Ml Soln, 4 MG IM BID PRN for NAUSEA OR VOMITING 2-4ML AT LEAST 8 HOURS APART Allergies Coded Allergies: latex (Verified Allergy, Severe, throat closes, 07/16/18) Penicillins (Verified Allergy, Intermediate, hives, 07/16/18) Sulfa (Sulfonamide Antibiotics) (Verified Allergy, Intermediate, hives, 07/16/18) adhesive tape (Verified Allergy, Intermediate, paper tape - blisters, hives, 07/16/18) azithromycin (Verified Allergy, Intermediate, hives, 07/16/18) ciprofloxacin (Verified Allergy, Intermediate, hives, 07/16/18) gatifloxacin (Verified Allergy, Intermediate, hives, 07/16/18) lorazepam (Verified Allergy, Intermediate, hallucinations, alters mind, 07/16/18) nitrofurantoin (Verified Allergy, Intermediate, hives, 07/16/18) oxycodone (Verified Allergy, Intermediate, hives, 07/16/18) strawberry (Verified Allergy, Intermediate, hives, 07/16/18) tomato (Verified Allergy, Intermediate, hives, 07/16/18) Contrast Media (Verified Allergy, Unknown, throat swelling, 09/14/18) Grape (Verified Allergy, Unknown, GRAPE JUICE, 03/22/17) chlorpromazine (Verified Allergy, Unknown, 07/16/18) colchicine (Verified Allergy, Unknown, 07/16/18) fluphenazine (Verified Allergy, Unknown, 07/16/18) gabapentin (Verified Allergy, Unknown, 07/16/18) grape (Verified Allergy, Unknown, 07/16/18) ipratropium (Verified Allergy, Unknown, 07/16/18) mesoridazine (Verified Allergy, Unknown, 07/16/18) perphenazine (Verified Allergy, Unknown, 07/16/18) prochlorperazine (Verified Allergy, Unknown, 07/16/18) tramadol (Verified Allergy, Unknown, 07/16/18) trifluoperazine (Verified Allergy, Unknown, 07/16/18) iodine (Verified Adverse Reaction, Severe, seizures, 07/16/18) morphine (Verified Adverse Reaction, Severe, severe headache with large doses, 07/16/18) theophylline (Verified Adverse Reaction, Severe, seizures, 07/16/18) codeine (Verified Adverse Reaction, Intermediate, "out of body", 07/16/18) droperidol (Verified Adverse Reaction, Intermediate, "out of body", eyes roll back in head, 07/16/18) hydrocodone (Verified Adverse Reaction, Intermediate, confusion (Vicodin), 07/16/18) lidocaine (Verified Adverse Reaction, Intermediate, increases HR when applied to upper body, 07/16/18) meperidine (Verified Adverse Reaction, Intermediate, "out of body", shaky, 07/16/18) pregabalin (Verified Adverse Reaction, Intermediate, anxiety, shaking, 07/16/18) promethazine (Verified Adverse Reaction, Intermediate, "out of body" - phenothiazines, 07/16/18) propoxyphene (Verified Adverse Reaction, Intermediate, "out of body", 07/16/18) albuterol (Verified Adverse Reaction, Mild, shaky, 07/16/18) aspirin (Verified Adverse Reaction, Mild, ulcers - full strength only, 07/16/18) baclofen (Verified Adverse Reaction, Mild, shaking, 07/16/18) fentanyl (Verified Adverse Reaction, Mild, nervous, 07/16/18) midazolam (Verified Adverse Reaction, Mild, nervous, 07/16/18) red dye (Verified Adverse Reaction, Mild, not a true allergy, please see comments, 07/16/18) Patient states that she becomes anxious if the contents of her ostomy are red, so she tries to avoid. tiagabine (Verified Adverse Reaction, Mild, nervous, 07/16/18) A-FIB/CHADSVASC A-FIB History Current/History of A-Fib/PAF?: No Current PO Anticoag Therapy: No PEARL LAIRD PA-C Nov 12, 2018 22:13
[2018-11-12 22:52] VITALS: BP 132/66
[2018-11-12] MEDS: HYDROmorphone HCL 2 MG/ML 1ML VIAL (J1170) IV PRN (22:59)
[2018-11-12] MEDS ORDERED: SLF 3 ML SYR IV PRN (23:15)
[2018-11-12] MEDS ORDERED: GLUCAGON FOR INJ 1 MG VIAL (J1610) SC PRN (23:15)
[2018-11-12] MEDS ORDERED: GLUCOSE 4 GM CHEW TABLET PO PRN (23:15)
[2018-11-12] MEDS: FAMOTIDINE IV BAG 20 MG in IV 1 EA IV SCH (23:21)
[2018-11-12 23:45] VITALS: O2SAT 87
[2018-11-12 23:59] VITALS: BP 157/79
[2018-11-13] VITALS (25 sets, daily range): BP systolic 118–158; BP diastolic 58–86; O2SAT 86–99
[2018-11-13] MEDS: ONDANSETRON 4MG/2ML VIAL (J2405) IV PRN ×3 (00:45→14:04)
[2018-11-13] MEDS: HYDROmorphone HCL 2 MG/ML 1ML VIAL (J1170) IV PRN ×3 (02:02→08:47)
[2018-11-13] MEDS: SLF 3 ML SYR IV SCH ×3 (05:09→21:28)
[2018-11-13] MEDS: HEPARIN SOD (PORCINE) 5000 UNITS/ML VIAL SC SCH ×3 (05:09→21:28)
[2018-11-13] MEDS: NS 1,000 ML IV SCH ×2 (05:10→16:58)
[2018-11-13] MEDS ORDERED: ALBUTEROL SULFATE 2.5 MG/0.5 ML INH NEB SOLN NEB PRN (05:15)
[2018-11-13] MEDS: ADVAIR HFA 230/21MCG INHALER INH SCH ×2 (08:00→20:47)
[2018-11-13] MEDS: AMITRIPTYLINE 50 MG TAB PO SCH ×2 (08:47→20:19)
[2018-11-13 08:49] LABS: BASO % 0.3 % (0.0-1.0); EOS % 0.6 % (0.0-3.0); HEMATOCRIT 36.2 % (36.0-47.0); HEMOGLOBIN 11.6 g/dl (12.0-15.5); LYMPH # 0.9 10^3/uL (1.5-4.5); LYMPH % 13.2 % (24.0-44.0); MEAN CORPUSCULAR HEMOGLOBIN 32.6 pg (27.0-33.0); MEAN CORPUSCULAR VOLUME 101.7 fl (80.0-96.0); MONO # 0.7 10^3/uL (0.0-0.8); MONO % 9.7 % (0.0-5.0); NEUTROPHILS # 5.2 10^3/uL (1.8-7.7); NEUTROPHILS % 75.9 % (36.0-66.0); PLATELET COUNT, AUTOMATED 253 10^3/uL (150-450); RED BLOOD COUNT 3.56 10^6/uL (4.00-5.40); WHITE BLOOD COUNT 6.8 10^3/uL (4.0-10.0)
--- NOTE | 2018-11-13 08:56 | CR ---
DATE OF CONSULTATION: 11/12/2018 The patient overall seems to have had some significant problems with her gastrointestinal (GI) tract recently that has caused her to come the emergency room every couple days. 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 She has had some low ostomy output over the last several days and some increasing abdominal distension with some nausea, vomiting and presents with partial bowel obstruction, mostly partial given that she still has ostomy output and her typical history is that she has an area of small bowel that has either such significant scarring around it that makes it have a decrease motility or stricture or partial obstruction from adhesions, etc. In any case, given her status, she essentially is a nonoperative candidate unless heroic measures are necessary. From a surgical standpoint, she is distended like she typically is, slightly more tense than usual and her abdominal pain typically runs 8-10 out of 10, and today it is 11 out of 10. Her past medical history is significant for history of multiple abdominal surgeries, history of bowel resections, small-bowel obstructions, parastomal hernia repairs, replacement of her colostomy site, ostomy site. History of hyperlipidemia, kidney stones, gastroesophageal reflux disease, anal fissures, anal stenosis, type 2 diabetes mellitus, chronic asthma, reflex sympathetic dystrophy, sympathectomy, spinal cord stimulator, chronic abdominal pain, status post hysterectomy, [id number] placement. Physical exam reveals a 58-year-old who looks much older than stated age. HEENT is remarkable. Neck supple without adenopathy. Lungs are clear, although diminished at the bases. Heart is regular. Abdomen is diffusely distended, tender throughout. There are areas where she has more tenderness, which is her typical areas off the midline incision at about the 7 o'clock position, the left side of her abdomen starting from the left lower quadrant all along the rectus muscle all the way up to the parastomal area. Ostomy is putting out some air and some minimal fluid that is pink without ischemic changes. IMPRESSION/PLAN: The patient has her typical high-grade partial obstruction/ileus/decreased motility typically nasogastric (NG) tube decompression for a few days will resolve the issue and then a very slow progression from clear liquids to advancing her diet usually works. Part of her reason for these bowel obstructions can be from the frozen abdomen but also can be from her narcotic use. Exact etiology has been yet to be determined. Otherwise, no emergent/urgent surgical intervention is necessary.
--- NOTE | 2018-11-13 09:01 | IPN ---
DATE: 11/13/2018 The patient was admitted overnight, essentially is on progressive care unit (PCU) because of her Dilaudid use, which is always significant. Typically, the patient can do well enough with a lower Dilaudid use/dose. Unfortunately with the criteria that nurses use for pain and medication doses she always has severe pain and thus, requires a higher dose. I would recommend dialing down on this over time. It also may contribute to decrease gastrointestinal (GI) motility. In any case, the patient had some ostomy output overnight, which is of some minimal liquid stool, and she seems less distended this morning. Her NG tube is putting out bilious fluid. She has been afebrile. IMPRESSION/PLAN: The patient has a high-grade partial obstruction as she typically does or a ileus or a nonfunctional/decreased motility portion of her bowel or a narcotic induced high-grade ileus. In any case, at this point, treatment continues to be the same as it is on each admission for her, nothing by mouth, NG tube until she resolves/improves and then clamping the NG tube for 24 hours at some point. I anticipate if we use her multiple admissions over the previous years/decade as a monitoring tool typically she will keep the NG tube on average 2-5 days and then clamping NG tube for 24 hours, then clear liquids for a day or two and then progressed to a regular diet. Otherwise, no emergent surgical intervention is necessary at this time. Would recommend your continued close observation/treatment.
[2018-11-13 09:22] LABS: ALBUMIN 2.9 GM/DL (3.2-5.2); ALT/SGPT 33 U/L (12-78); BILIRUBIN,TOTAL 0.3 MG/DL (0.2-1.0); BLOOD UREA NITROGEN 15 MG/DL (7-18); CALCIUM LEVEL 9.1 MG/DL (8.5-10.1); CARBON DIOXIDE LEVEL 27 MEQ/L (21-32); CHLORIDE LEVEL 107 MEQ/L (98-107); CREATININE FOR GFR 0.51 MG/DL (0.55-1.30); GLOMERULAR FILTRATION RATE > 60.0 (>51); GLUCOSE, FASTING 100 MG/DL (70-100); POTASSIUM SERUM 3.7 MEQ/L (3.5-5.1); SODIUM LEVEL 140 MEQ/L (136-145); TOTAL PROTEIN 7.6 GM/DL (6.4-8.2)
[2018-11-13] MEDS ORDERED: METOCLOPRAMIDE 5 MG TAB PO PRN (10:45)
--- NOTE | 2018-11-13 10:51 | IPNPDOC ---
Subjective Date Seen The patient was seen on 11/13/18. Subjective Chief Complaint/HPI Patient sleeping comfortably in bed as I entered the room. She reports continued abdominal discomfort and nausea. She has NG tube Constitutional: Denies: Chills, Fever Pulmonary: Denies: Dyspnea, Cough, Pleuritic Chest Pain Cardiovascular: Denies: Chest Pain, Palpitations, Edema Gastrointestinal: Reports: Nausea, Abdominal Pain, Other Symptoms (ostomy, left side); Denies: Vomiting Psych: Reports: Mood Normal Objective Physical Examination General Exam: Positive: Alert, Cooperative, No Acute Distress Neck Exam: Positive: Supple; Negative: JVD Chest Exam: Positive: Clear to auscultation, Normal air movement; Negative: Rales, Rhonchi, Wheezing Heart Exam: Positive: Rate Normal Abdomen Exam: Positive: BS Hypoactive, Soft, Other (minimal distention, ostomy draining green liquid stool); Negative: Tenderness Extremity Exam: Negative: Edema Psych Exam: Positive: Mood NL Assessment /Plan Problems (1) Small bowel obstruction Status: Acute Response to Treatment: Stable Problem Specific Plan: Consult Specialist Problem Text: 11/13/18: Surgery has been consulted. Patient currently NPO with NG tube until symptoms resolve (2) Generalized abdominal pain Status: Acute Response to Treatment: Stable Problem Text: 11/13/18: Recommendation from surgery is to decrease her Dilaudid use/dose over time as this may contribute to her decreased GI motility. D/C Diluadid 1.6mg q 3 hours today. We will continue to evaluate (3) Nausea & vomiting Status: Acute Problem Text: 11/13/18: She is currently on Zofran q 6 hours. We will add Reglan 5mg tid prn nausea (4) T2DM (type 2 diabetes mellitus) Status: Chronic Response to Treatment: Stable Problem Text: 11/13/18: Patient is currently NPO. BGs remain stable. Insulin regimen on hold. We will need to continue to monitor 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?: Yes (Heparin) VS, I&O, 24H, Fishbone Vital Signs/I&O Vital Signs Date Time Temp Pulse Resp B/P (MAP) Pulse Ox O2 Delivery O2 Flow Rate FiO2 11/13/18 08:47 20 11/13/18 08:00 97.8 82 131/67 (88) 98 2.0 11/13/18 06:30 Nasal Cannula I&O- Last 24 Hours up to 6 AM 11/13/18 05:59 Intake Total 200 ml Output Total 850 ml Balance -650 ml Laboratory Data 24H LABS Laboratory Tests 2 11/12/18 13:23: Immature Granulocyte % (Auto) 0.3, White Blood Count 11.5H, Red Blood Count 4.18, Hemoglobin 13.5, Hematocrit 41.0, Mean Corpuscular Volume 98.1H, Mean Corpuscular Hemoglobin 32.3, Mean Corpuscular Hemoglobin Concent 32.9, Red Cell Distribution Width 14.1, Platelet Count 319, Neutrophils (%) (Auto) 77.8H, Lymphocytes (%) (Auto) 14.3L, Monocytes (%) (Auto) 7.0H, Eosinophils (%) (Auto) 0.2, Basophils (%) (Auto) 0.4, Neutrophils # (Auto) 9.0H, Lymphocytes # (Auto) 1.6, Monocytes # (Auto) 0.8, Eosinophils # (Auto) 0.0, Basophils # (Auto) 0.1, Nucleated Red Blood Cells % (auto) 0.0, Anion Gap 9, Glomerular Filtration Rate > 60.0, Calcium Level 11.8H, Aspartate Amino Transf (AST/SGOT) 23, Alanine Aminotransferase (ALT/SGPT) 34, Alkaline Phosphatase 155H, Total Bilirubin 0.3, Direct Bilirubin < 0.1, Total Protein 8.6H, Albumin 3.7, Albumin/Globulin Ratio 0.76L 11/12/18 13:30: POC Lactate (Misc Panel) 3.17*H 11/12/18 18:03: Lactic Acid Level 1.4 11/13/18 05:15: Bedside Glucose (Misc Panel) 105 11/13/18 08:31: Immature Granulocyte % (Auto) 0.3, White Blood Count 6.8, Red Blood Count 3.56L, Hemoglobin 11.6L, Hematocrit 36.2, Mean Corpuscular Volume 101.7H, Mean Corpuscular Hemoglobin 32.6, Mean Corpuscular Hemoglobin Concent 32.0, Red Cell Distribution Width 14.4, Platelet Count 253, Neutrophils (%) (Auto) 75.9H, Lymphocytes (%) (Auto) 13.2L, Monocytes (%) (Auto) 9.7H, Eosinophils (%) (Auto) 0.6, Basophils (%) (Auto) 0.3, Neutrophils # (Auto) 5.2, Lymphocytes # (Auto) 0.9L, Monocytes # (Auto) 0.7, Eosinophils # (Auto) 0.0, Basophils # (Auto) 0.0, Nucleated Red Blood Cells % (auto) 0.0, Anion Gap 6L, Glomerular Filtration Rate > 60.0, Blood Urea Nitrogen 15, Creatinine 0.51L, Sodium Level 140, Potassium Level 3.7, Chloride Level 107, Carbon Dioxide Level 27, Calcium Level 9.1#, Aspartate Amino Transf (AST/SGOT) 22, Alanine Aminotransferase (ALT/SGPT) 33, Alkaline Phosphatase 131H, Total Bilirubin 0.3, Total Protein 7.6, Albumin 2.9#L, Albumin/Globulin Ratio 0.62L, Lipase 59L CBC/BMP Laboratory Tests 11/12/18 13:23 Red Blood Count 4.18, Mean Corpuscular Volume 98.1 H, Mean Corpuscular Hemoglobin 32.3, Mean Corpuscular Hemoglobin Concent 32.9, Red Cell Distribution Width 14.1, Neutrophils (%) (Auto) 77.8 H, Lymphocytes (%) (Auto) 14.3 L, Mo nocytes (%) (Auto) 7.0 H, Eosinophils (%) (Auto) 0.2, Basophils (%) (Auto) 0.4, Neutrophils # (Auto) 9.0 H, Lymphocytes # (Auto) 1.6, Monocytes # (Auto) 0.8, Eosinophils # (Auto) 0.0, Basophils # (Auto) 0.1 11/13/18 08:31 Red Blood Count 3.56 L, Mean Corpuscular Volume 101.7 H, Mean Corpuscular Hemoglobin 32.6, Mean Corpuscular Hemoglobin Concent 32.0, Red Cell Distribution Width 14.4, Neutrophils (%) (Auto) 75.9 H, Lymphocytes (%) (Auto) 13.2 L, Monocytes (%) (Auto) 9.7 H, Eosinophils (%) (Auto) 0.6, Basophils (%) (Auto) 0.3, Neutrophils # (Auto) 5.2, Lymphocytes # (Auto) 0.9 L, Monocytes # (Auto) 0.7, Eosinophils # (Auto) 0.0, Basophils # (Auto) 0.0, Calcium Level 9.1 #, Aspartate Amino Transf (AST/SGOT) 22, Alanine Aminotransferase (ALT/SGPT) 33, Alkaline Phosphatase 131 H, Total Bilirubin 0.3, Total Protein 7.6, Albumin 2.9 #ELLIOT [facility]KAR[facility] Nov 13, 2018 09:56
[2018-11-13] MEDS: FAMOTIDINE IV BAG 20 MG in IV 1 EA IV SCH ×2 (12:52→23:57)
[2018-11-13] MEDS: HYDROMORPHONE HCL 0.5 MG/ 0.5 ML SYRINGE (J1170 PER 1) IV PRN ×4 (13:13→23:58)
[2018-11-14] VITALS (20 sets, daily range): BP systolic 125–143; BP diastolic 58–78; O2SAT 92–97
[2018-11-14] MEDS: DEXTROSE 50% 50 ML SYRINGE IV PRN ×2 (00:36→03:12)
[2018-11-14] MEDS: D5W/0.9% SODIUM CHLORIDE 1,000 ML IV SCH ×2 (03:40→13:08)
[2018-11-14] MEDS: HYDROMORPHONE HCL 0.5 MG/ 0.5 ML SYRINGE (J1170 PER 1) IV PRN ×6 (03:41→19:47)
[2018-11-14 05:53] LABS: BASO % 0.3 % (0.0-1.0); EOS # 0.1 10^3/uL (0.0-0.50); EOS % 1.2 % (0.0-3.0); HEMATOCRIT 37.5 % (36.0-47.0); HEMOGLOBIN 11.5 g/dl (12.0-15.5); LYMPH # 1.1 10^3/uL (1.5-4.5); LYMPH % 19.1 % (24.0-44.0); MEAN CORPUSCULAR HEMOGLOBIN 31.9 pg (27.0-33.0); MEAN CORPUSCULAR HGB CONC 30.7 g/dl (32.0-36.5); MEAN CORPUSCULAR VOLUME 103.9 fl (80.0-96.0); MONO # 0.6 10^3/uL (0.0-0.8); MONO % 10.1 % (0.0-5.0); NEUTROPHILS % 69.1 % (36.0-66.0); PLATELET COUNT, AUTOMATED 220 10^3/uL (150-450); RED BLOOD COUNT 3.61 10^6/uL (4.00-5.40); WHITE BLOOD COUNT 5.9 10^3/uL (4.0-10.0)
[2018-11-14] MEDS: HEPARIN SOD (PORCINE) 5000 UNITS/ML VIAL SC SCH ×3 (06:00→20:58)
[2018-11-14] MEDS: SLF 3 ML SYR IV SCH ×3 (06:00→21:34)
[2018-11-14 06:49] LABS: ALBUMIN 2.7 GM/DL (3.2-5.2); ALT/SGPT 36 U/L (12-78); BILIRUBIN,TOTAL 0.3 MG/DL (0.2-1.0); BLOOD UREA NITROGEN 11 MG/DL (7-18); CALCIUM LEVEL 8.3 MG/DL (8.5-10.1); CARBON DIOXIDE LEVEL 26 MEQ/L (21-32); CHLORIDE LEVEL 109 MEQ/L (98-107); CREATININE FOR GFR 0.42 MG/DL (0.55-1.30); GLOMERULAR FILTRATION RATE > 60.0 (>51); GLUCOSE, FASTING 103 MG/DL (70-100); SODIUM LEVEL 141 MEQ/L (136-145); TOTAL PROTEIN 6.8 GM/DL (6.4-8.2)
[2018-11-14] MEDS: ADVAIR HFA 230/21MCG INHALER INH SCH ×2 (08:29→20:52)
[2018-11-14] MEDS: AMITRIPTYLINE 50 MG TAB PO SCH ×2 (09:29→20:03)
--- NOTE | 2018-11-14 11:35 | IPNPDOC ---
Subjective Date Seen The patient was seen on 11/14/18. Subjective Chief Complaint/HPI still has pain in abdomen. ENT: Denies: Head Aches Pulmonary: Denies: Dyspnea, Pleuritic Chest Pain Cardiovascular: Denies: Chest Pain, Palpitations, Orthopnea Gastrointestinal: Reports: Abdominal Pain (mid abdomen) Endocrine: Denies: Polydipsia Musculoskeletal: Denies: Neck Pain Neurological: Denies: Weakness Psych: Reports: Mood Normal Objective Physical Examination General Exam: Positive: Alert, Cooperative, No Acute Distress Neck Exam: Positive: Supple; Negative: JVD Chest Exam: Positive: Clear to auscultation, Normal air movement; Negative: Rales, Rhonchi, Wheezing Heart Exam: Positive: Rate Normal Abdomen Exam: Positive: BS Hypoactive, Soft, Other (minimal distention, ostomy draining green liquid stool. still draining. hernia noted right lower abdomen. non-tender); Negative: Tenderness Extremity Exam: Negative: Edema Skin Exam: Positive: Nl turgor and temperature Neuro Exam: Positive: Normal Speech Psych Exam: Positive: Mood NL Assessment /Plan Problems (1) Small bowel obstruction Status: Acute Response to Treatment: Stable Problem Specific Plan: Consult Specialist Problem Text: 11/14: continuiing NG, still has significant output. abdomen is less distended 11/13/18: Surgery has been consulted. Patient currently NPO with NG tube until symptoms resolve (2) Generalized abdominal pain Status: Acute Response to Treatment: Stable Problem Text: 11/14: analgesic reduced w/o compaint. 11/13/18: Recommendation from surgery is to decrease her Dilaudid use/dose over time as this may contribute to her decreased GI motility. D/C Diluadid 1.6mg q 3 hours today. We will continue to evaluate (3) Nausea & vomiting Status: Acute Problem Text: 11/13/18: She is currently on Zofran q 6 hours. We will add Reglan 5mg tid prn nausea (4) T2DM (type 2 diabetes mellitus) Status: Chronic Response to Treatment: Stable Problem Text: 11/13/18: Patient is currently NPO. BGs remain stable. Insulin regimen on hold. We will need to continue to monitor 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?: Yes (Heparin) VS, I&O, 24H, Fishbone Vital Signs/I&O Vital Signs Date Time Temp Pulse Resp B/P (MAP) Pulse Ox O2 Delivery O2 Flow Rate FiO2 11/14/18 10:09 20 11/14/18 09:00 96 Nasal Cannula 1.0 11/14/18 08:00 96.9 82 130/60 (83) I&O- Last 24 Hours up to 6 AM 11/14/18 06:00 Intake Total 1000 ml Output Total 1650 ml Balance -650 ml Laboratory Data 24H LABS Laboratory Tests 2 11/13/18 13:28: Bedside Glucose (Misc Panel) 97 11/13/18 18:37: Bedside Glucose (Misc Panel) 76 11/14/18 00:27: Bedside Glucose (Misc Panel) 52L 11/14/18 01:04: Bedside Glucose Confirm (Misc) 94 11/14/18 01:05: Bedside Glucose (Misc Panel) 92 11/14/18 01:36: Bedside Glucose (Misc Panel) 86 11/14/18 02:51: Bedside Glucose (Misc Panel) 62L 11/14/18 04:16: Bedside Glucose (Misc Panel) 104 11/14/18 05:47: Immature Granulocyte % (Auto) 0.2, White Blood Count 5.9, Red Blood Count 3.61L, Hemoglobin 11.5L, Hematocrit 37.5, Mean Corpuscular Volume 103.9H, Mean Corpuscular Hemoglobin 31.9, Mean Corpuscular Hemoglobin Concent 30.7L, Red Cell Distribution Width 14.2, Platelet Count 220, Neutrophils (%) (Auto) 69.1H, Lymphocytes (%) (Auto) 19.1L, Monocytes (%) (Auto) 10.1H, Eosinophils (%) (Auto) 1.2, Basophils (%) (Auto) 0.3, Neutrophils # (Auto) 4.0, Lymphocytes # (Auto) 1.1L, Monocytes # (Auto) 0.6, Eosinophils # (Auto) 0.1, Basophils # (Auto) 0.0, Nucleated Red Blood Cells % (auto) 0.0, Anion Gap 6L, Glomerular Filtration Rate > 60.0, Blood Urea Nitrogen 11, Creatinine 0.42L, Sodium Level 141, Potassium Level 4.0, Chloride Level 109H, Carbon Dioxide Level 26, Calcium Level 8.3L, Aspartate Amino Transf (AST/SGOT) 39H, Alanine Aminotransferase (ALT/SGPT) 36, Alkaline Phosphatase 119H, Total Bilirubin 0.3, Total Protein 6.8, Albumin 2.7L, Albumin/Globulin Ratio 0.66L 11/14/18 06:02: Bedside Glucose (Misc Panel) 102 CBC/BMP Laboratory Tests 11/14/18 05:47 Red Blood Count 3.61 L, Mean Corpuscular Volume 103.9 H, Mean Corpuscular Hemoglobin 31.9, Mean Corpuscular Hemoglobin Concent 30.7 L, Red Cell Distribution Width 14.2, Neutrophils (%) (Auto) 69.1 H, Lymphocytes (%) (Auto) 19.1 L, Monocytes (%) (Auto) 10.1 H, Eosinophils (%) (Auto) 1.2, Basophils (%) (Auto) 0.3, Neutrophils # (Auto) 4.0, Lymphocytes # (Auto) 1.1 L, Monocytes # (Auto) 0.6, Eosinophils # (Auto) 0.1, Basophils # (Auto) 0.0, Calcium Level 8.3 L, Aspartate Amino Transf (AST/SGOT) 39 H, Alanine Aminotransferase (ALT/SGPT) 36, Alkaline Phosphatase 119 H, Total Bilirubin 0.3, Total Protein 6.8, Albumin 2.7 L Yosi Jiménez MD Nov 14, 2018 11:35
[2018-11-14] MEDS: FAMOTIDINE IV BAG 20 MG in IV 1 EA IV SCH ×2 (13:27→23:10)
[2018-11-15] VITALS (11 sets, daily range): BP systolic 141–169; BP diastolic 65–77; O2SAT 90–96
[2018-11-15] MEDS: HYDROMORPHONE HCL 0.5 MG/ 0.5 ML SYRINGE (J1170 PER 1) IV PRN ×7 (00:06→20:46)
[2018-11-15] MEDS: D5W/0.9% SODIUM CHLORIDE 1,000 ML IV SCH (00:13)
[2018-11-15] MEDS: SLF 3 ML SYR IV SCH ×3 (05:06→21:46)
[2018-11-15] MEDS: HEPARIN SOD (PORCINE) 5000 UNITS/ML VIAL SC SCH ×3 (05:21→21:46)
[2018-11-15 06:06] LABS: BASO % 0.4 % (0.0-1.0); EOS # 0.1 10^3/uL (0.0-0.50); EOS % 1.2 % (0.0-3.0); HEMATOCRIT 33.4 % (36.0-47.0); HEMOGLOBIN 10.6 g/dl (12.0-15.5); MEAN CORPUSCULAR HEMOGLOBIN 31.5 pg (27.0-33.0); MEAN CORPUSCULAR HGB CONC 31.7 g/dl (32.0-36.5); MEAN CORPUSCULAR VOLUME 99.1 fl (80.0-96.0); MONO # 0.5 10^3/uL (0.0-0.8); MONO % 9.5 % (0.0-5.0); NEUTROPHILS # 3.4 10^3/uL (1.8-7.7); NEUTROPHILS % 67.7 % (36.0-66.0); PLATELET COUNT, AUTOMATED 241 10^3/uL (150-450); RED BLOOD COUNT 3.37 10^6/uL (4.00-5.40)
[2018-11-15 06:37] LABS: ALBUMIN 2.8 GM/DL (3.2-5.2); ALT/SGPT 34 U/L (12-78); BILIRUBIN,TOTAL 0.2 MG/DL (0.2-1.0); BLOOD UREA NITROGEN 4 MG/DL (7-18); CALCIUM LEVEL 8.6 MG/DL (8.5-10.1); CARBON DIOXIDE LEVEL 29 MEQ/L (21-32); CHLORIDE LEVEL 107 MEQ/L (98-107); GLOMERULAR FILTRATION RATE > 60.0 (>51); GLUCOSE, FASTING 144 MG/DL (70-100); MAGNESIUM LEVEL 1.9 MG/DL (1.8-2.4); SODIUM LEVEL 141 MEQ/L (136-145); TOTAL PROTEIN 7.4 GM/DL (6.4-8.2)
[2018-11-15] MEDS: ADVAIR HFA 230/21MCG INHALER INH SCH ×2 (07:38→19:52)
[2018-11-15] MEDS ORDERED: KCL 10MEQ/100ML SWI (KRUN) 10 MEQ in IV 1 EA IV SCH (08:00)
[2018-11-15] MEDS ORDERED: KCL 10MEQ/100ML SWI (KRUN) 10 MEQ in IV 1 EA IV ONE ×2 (08:00→10:00)
--- NOTE | 2018-11-15 08:41 | IPNPDOC ---
Subjective Date Seen The patient was seen on 11/15/18. Subjective Chief Complaint/HPI INCREASED DISCOMFORT Constitutional: Denies: Chills Skin: Reports: Other (red thickened zone in skin of left breast); Denies: Rash Cardiovascular: Denies: Chest Pain, Orthopnea Gastrointestinal: Reports: Nausea, Abdominal Pain Hematologic: Denies: Bruising Neurological: Denies: Weakness Psych: Reports: Anxiety (anxiety about her abdominal problem) Objective Physical Examination General Exam: Positive: Alert, Cooperative, No Acute Distress Neck Exam: Positive: Supple; Negative: JVD Chest Exam: Positive: Clear to auscultation, Normal air movement; Negative: Rales, Rhonchi, Wheezing Heart Exam: Positive: Rate Normal Abdomen Exam: Positive: BS Hypoactive, Soft, Tenderness (mid left abdomen uncomfortable), Other (minimal distention, ostomy draining green liquid stool. still draining. hernia noted right lower abdomen. non-tender) Extremity Exam: Negative: Edema Skin Exam: Positive: Nl turgor and temperature Neuro Exam: Positive: Normal Speech Psych Exam: Positive: Mood NL Assessment /Plan Problems (1) Small bowel obstruction Status: Acute Response to Treatment: Stable Problem Specific Plan: Consult Specialist Problem Text: 11/15: only 100 cc output since yesterday but she is more distended, so continue NG with LIS. Flush and reposition the tube 11/14: continuing NG, still has significant output. abdomen is less distended 11/13/18: Surgery has been consulted. Patient currently NPO with NG tube until symptoms resolve (2) Generalized abdominal pain Status: Acute Response to Treatment: Stable Problem Text: 11/14: analgesic reduced w/o compaint. 11/13/18: Recommendation from surgery is to decrease her Dilaudid use/dose over time as this may contribute to her decreased GI motility. D/C Diluadid 1.6mg q 3 hours today. We will continue to evaluate (3) Nausea & vomiting Status: Acute Problem Text: 11/13/18: She is currently on Zofran q 6 hours. We will add Reglan 5mg tid prn nausea (4) T2DM (type 2 diabetes mellitus) Status: Chronic Response to Treatment: Stable Problem Text: 11/13/18: Patient is currently NPO. BGs remain stable. Insulin regimen on hold. We will need to continue to monitor (5) Hypokalemia Status: Acute Problem Text: secondary to no po intake and ongoing NG losses. Krun X2 this am, change IV fluid to include 20mEq / L and repeat lab this afternoon. (6) Hypomagnesemia Onset Date: 02/24/2014 Status: Chronic Response to Treatment: Stable Problem Text: receives periodic magnesium replacement IV. stable so far but needs to be actively monitored while inpt. 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?: Yes (Heparin) VS, I&O, 24H, Fishbone Vital Signs/I&O Vital Signs Date Time Temp Pulse Resp B/P (MAP) Pulse Ox O2 Delivery O2 Flow Rate FiO2 11/15/18 08:00 97.2 74 16 150/74 (99) 97 1.0 11/14/18 20:00 Room Air I&O- Last 24 Hours up to 6 AM 11/15/18 06:00 Intake Total 1350 ml Output Total 1475 ml Balance -125 ml Laboratory Data 24H LABS Laboratory Tests 2 11/14/18 11:51: Bedside Glucose (Misc Panel) 121H 11/14/18 18:10: Bedside Glucose (Misc Panel) 90 11/14/18 23:09: Bedside Glucose (Misc Panel) 118H 11/15/18 05:45: Immature Granulocyte % (Auto) 0.2, White Blood Count 5.0, Red Blood Count 3.37L, Hemoglobin 10.6L, Hematocrit 33.4L, Mean Corpuscular Volume 99.1H, Mean Corpuscular Hemoglobin 31.5, Mean Corpuscular Hemoglobin Concent 31.7L, Red Cell Distribution Width 14.1, Platelet Count 241, Neutrophils (%) (Auto) 67.7H, Lymphocytes (%) (Auto) 21.0L, Monocytes (%) (Auto) 9.5H, Eosinophils (%) (Auto) 1.2, Basophils (%) (Auto) 0.4, Neutrophils # (Auto) 3.4, Lymphocytes # (Auto) 1.0L, Monocytes # (Auto) 0.5, Eosinophils # (Auto) 0.1, Basophils # (Auto) 0.0, Nucleated Red Blood Cells % (auto) 0.0, Anion Gap 5L, Glomerular Filtration Rate > 60.0, Blood Urea Nitrogen 4#L, Creatinine 0.50L, Sodium Level 141, Potassium Level 3.0#L, Chloride Level 107, Carbon Dioxide Level 29, Calcium Level 8.6, As partate Amino Transf (AST/SGOT) 23, Alanine Aminotransferase (ALT/SGPT) 34, Alkaline Phosphatase 123H, Total Bilirubin 0.2, Total Protein 7.4, Albumin 2.8L, Magnesium Level 1.9, Albumin/Globulin Ratio 0.61L CBC/BMP Laboratory Tests 11/15/18 05:45 Red Blood Count 3.37 L, Mean Corpuscular Volume 99.1 H, Mean Corpuscular Hemoglobin 31.5, Mean Corpuscular Hemoglobin Concent 31.7 L, Red Cell Distribution Width 14.1, Neutrophils (%) (Auto) 67.7 H, Lymphocytes (%) (Auto) 21.0 L, Monocytes (%) (Auto) 9.5 H, Eosinophils (%) (Auto) 1.2, Basophils (%) (Auto) 0.4, Neutrophils # (Auto) 3.4, Lymphocytes # (Auto) 1.0 L, Monocytes # (Auto) 0.5, Eosinophils # (Auto) 0.1, Basophils # (Auto) 0.0, Calcium Level 8.6, Aspartate Amino Transf (AST/SGOT) 23, Alanine Aminotransferase (ALT/SGPT) 34, Alkaline Phosphatase 123 H, Total Bilirubin 0.2, Total Protein 7.4, Albumin 2.8 L Yosi Jiménez MD Nov 15, 2018 08:41
[2018-11-15] MEDS: AMITRIPTYLINE 50 MG TAB PO SCH ×2 (08:56→21:46)
[2018-11-15] MEDS: ONDANSETRON 4MG/2ML VIAL (J2405) IV PRN ×2 (10:04→17:57)
[2018-11-15] MEDS: KCL 20MEQ IN D5/NS 1000ML 1,000 ML IV SCH ×2 (11:15→23:17)
[2018-11-15] MEDS: FAMOTIDINE IV BAG 20 MG in IV 1 EA IV SCH ×2 (11:15→23:21)
[2018-11-15 15:34] LABS: BLOOD UREA NITROGEN 3 MG/DL (7-18); CALCIUM LEVEL 8.8 MG/DL (8.5-10.1); CARBON DIOXIDE LEVEL 29 MEQ/L (21-32); CHLORIDE LEVEL 106 MEQ/L (98-107); CREATININE FOR GFR 0.47 MG/DL (0.55-1.30); GLOMERULAR FILTRATION RATE > 60.0 (>51); GLUCOSE, FASTING 169 MG/DL (70-100); POTASSIUM SERUM 3.3 MEQ/L (3.5-5.1); SODIUM LEVEL 141 MEQ/L (136-145)
[2018-11-15] MEDS: KCL 10MEQ/100ML SWI (KRUN) 10 MEQ in IV 1 EA IV SCH ×2 (16:15→17:38)
[2018-11-16] VITALS (19 sets, daily range): BP systolic 110–161; BP diastolic 58–77; O2SAT 91–97
[2018-11-16] MEDS: HYDROMORPHONE HCL 0.5 MG/ 0.5 ML SYRINGE (J1170 PER 1) IV PRN ×5 (01:11→21:09)
[2018-11-16] MEDS: SLF 3 ML SYR IV SCH ×3 (05:35→21:08)
[2018-11-16] MEDS: HEPARIN SOD (PORCINE) 5000 UNITS/ML VIAL SC SCH ×3 (05:46→21:08)
[2018-11-16 06:19] LABS: HEMOGLOBIN 10.1 g/dl (12.0-15.5); MEAN CORPUSCULAR HEMOGLOBIN 31.5 pg (27.0-33.0); MEAN CORPUSCULAR HGB CONC 31.6 g/dl (32.0-36.5); MEAN CORPUSCULAR VOLUME 99.7 fl (80.0-96.0); PLATELET COUNT, AUTOMATED 253 10^3/uL (150-450); RED BLOOD COUNT 3.21 10^6/uL (4.00-5.40); WHITE BLOOD COUNT 4.9 10^3/uL (4.0-10.0)
[2018-11-16 06:30] LABS: ALBUMIN 2.7 GM/DL (3.2-5.2); MAGNESIUM LEVEL 1.8 MG/DL (1.8-2.4)
--- NOTE | 2018-11-16 07:37 | IPNPDOC ---
Subjective Date Seen The patient was seen on 11/16/18. Subjective Chief Complaint/HPI bowel obstruction Events since last encounter Continues to c/o severe abdominal pain requiring extensive amounts of hydromorphone prn. Nursing reports patient sleeps for hours, hwoever when wakes up, c/o severe abdominal pain. has had decreased output from NGT. + liquid output to ileostomy. patient has a breast nodule that was to have US completed last week. c/o tenderness to this area. Constitutional: Denies: Chills, Fever, Night Sweats Pulmonary: Denies: Dyspnea, Cough Cardiovascular: Denies: Chest Pain, Palpitations, Orthopnea, Paroxysmal Noc. Dyspnea, Lt Headedness Gastrointestinal: Reports: Nausea, Abdominal Pain; Denies: Vomiting Psych: Reports: Mood Normal Objective Physical Examination General Exam: Positive: Alert, Cooperative, No Acute Distress Neck Exam: Positive: Supple Chest Exam: Positive: Clear to auscultation, Normal air movement Heart Exam: Positive: Rate Normal Abdomen Exam: Positive: BS Hypoactive, Soft, Tenderness, Other Extremity Exam: Negative: Edema Skin Exam: Positive: Nl turgor and temperature Neuro Exam: Positive: Normal Speech Psych Exam: Positive: Mood NL Other physical findings palpable nodule that is tender to RLQ of breast at approximately 7 o clock position. Assessment /Plan Problems (1) Small bowel obstruction Status: Acute Response to Treatment: Stable Problem Specific Plan: Consult Specialist Problem Text: 11/16/18: continues to have decreased output from NGT. Would appreciate surgery's input today. Will continue NGT, + alvimopan 11/15: only 100 cc output since yesterday but she is more distended, so continue NG with LIS. Flush and reposition the tube 11/14: continuing NG, still has significant output. abdomen is less distended 11/13/18: Surgery has been consulted. Patient currently NPO with NG tube until symptoms resolve (2) Generalized abdominal pain Status: Acute Response to Treatment: Stable Problem Text: 11/16/18: hydromorphone decreased to 0.5 mg IV q 4h prn moderate pain. 11/14: analgesic reduced w/o compaint. 11/13/18: Recommendation from surgery is to decrease her Dilaudid use/dose over time as this may contribute to her decreased GI motility. D/C Diluadid 1.6mg q 3 hours today. We will continue to evaluate (3) Nausea & vomiting Status: Acute Problem Text: 11/13/18: She is currently on Zofran q 6 hours. We will add Reglan 5mg tid prn nausea (4) T2DM (type 2 diabetes mellitus) Status: Chronic Response to Treatment: Stable Problem Text: 11/13/18: Patient is currently NPO. BGs remain stable. Insulin regimen on hold. We will need to continue to monitor (5) Hypokalemia Status: Acute Problem Text: secondary to no po intake and ongoing NG losses. Krun X2 this am, change IV fluid to include 20mEq / L and repeat lab this afternoon. (6) Hypomagnesemia Onset Date: 02/24/2014 Status: Chronic Response to Treatment: Stable Problem Text: 11/16/18 stable K 3.8/Mg 1.8 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?: Yes (Heparin) VS, I&O, 24H, Fishbone Vital Signs/I&O Vital Signs Date Time Temp Pulse Resp B/P (MAP) Pulse Ox O2 Delivery O2 Flow Rate FiO2 11/16/18 05:57 17 11/16/18 04:00 96.4 71 122/58 (79) 98 1.0 11/15/18 19:00 Room Air I&O- Last 24 Hours up to 6 AM 11/16/18 06:00 Intake Total 1100 ml Output Total 2800 ml Balance -1700 ml Laboratory Data 24H LABS Laboratory Tests 2 11/15/18 13:50: Bedside Glucose (Misc Panel) 138H 11/15/18 14:53: Anion Gap 6L, Glomerular Filtration Rate > 60.0, Blood Urea Nitrogen 3L, Creatinine 0.47L, Sodium Level 141, Potassium Level 3.3L, Chloride Level 106, Carbon Dioxide Level 29, Calcium Level 8.8 11/15/18 17:45: Bedside Glucose (Misc Panel) 146H 11/16/18 00:13: Bedside Glucose (Misc Panel) 187H 11/16/18 05:50: Nucleated Red Blood Cells % (auto) 0.0, Albumin 2.7L, Magnesium Level 1.8 CBC/BMP Laboratory Tests 11/15/18 14:53 Calcium Level 8.8 11/16/18 05:50 Red Blood Count 3.21 L, Mean Corpuscular Volume 99.7 H, Mean Corpuscular Hemoglobin 31.5, Mean Corpuscular Hemoglobin Concent 31.6 L, Red Cell Distribution Width 14.1, Albumin 2.7 L Sarika Alvarado Nov 16, 2018 07:37 Kg Bass M.D. Nov 16, 2018 15:54
[2018-11-16 08:00] LABS: ALT/SGPT 32 U/L (12-78); BILIRUBIN,TOTAL 0.1 MG/DL (0.2-1.0); BLOOD UREA NITROGEN 3 MG/DL (7-18); CALCIUM LEVEL 8.7 MG/DL (8.5-10.1); CARBON DIOXIDE LEVEL 28 MEQ/L (21-32); CHLORIDE LEVEL 110 MEQ/L (98-107); CREATININE FOR GFR 0.42 MG/DL (0.55-1.30); GLOMERULAR FILTRATION RATE > 60.0 (>51); GLUCOSE, FASTING 195 MG/DL (70-100); POTASSIUM SERUM 3.8 MEQ/L (3.5-5.1); SODIUM LEVEL 143 MEQ/L (136-145); TOTAL PROTEIN 6.3 GM/DL (6.4-8.2)
[2018-11-16] MEDS: ADVAIR HFA 230/21MCG INHALER INH SCH ×2 (08:19→20:26)
[2018-11-16] MEDS: AMITRIPTYLINE 50 MG TAB PO SCH ×2 (09:09→21:07)
[2018-11-16] MEDS: KCL 20MEQ IN D5/NS 1000ML 1,000 ML IV SCH ×3 (10:35→23:25)
[2018-11-16] MEDS: FAMOTIDINE IV BAG 20 MG in IV 1 EA IV SCH (13:08)
--- NOTE | 2018-11-16 16:43 | REP ---
LEFT BREAST ULTRASOUND: Real-time sonographic evaluation of the left breast was performed and compared to prior study of 10/23/2018. Once again in the medial aspect of the left breast at an area of tenderness and swelling there was a superficial oval hypoechoic area which measures 1.1 x 0.4 x 0.9 cm. This has decreased since prior study. Previously noted hyperemic flow with Doppler evaluation appears to have resolved. Findings are most consistent with resolving phlegmon and abscess. Electronically Signed by Geovanni Camejo MD 11/18/2018 07:56 A
[2018-11-16] MEDS: ONDANSETRON 4MG/2ML VIAL (J2405) IV PRN (18:20)
[2018-11-16] MEDS ORDERED: DEXTROSE 50% 50 ML SYRINGE IV PRN ×2 (19:30→19:45)
[2018-11-16] MEDS ORDERED: GLUCAGON FOR INJ 1 MG VIAL (J1610) SC PRN ×2 (19:30→19:45)
[2018-11-16] MEDS ORDERED: GLUCOSE 4 GM CHEW TABLET PO PRN ×2 (19:30→19:45)
[2018-11-16] MEDS: ALVIMOPAN 12 MG CAPSULE (ENTEREG) PO SCH (21:07)
[2018-11-17] VITALS (24 sets, daily range): BP systolic 115–166; BP diastolic 61–84; O2SAT 88–98
[2018-11-17] MEDS: FAMOTIDINE IV BAG 20 MG in IV 1 EA IV SCH ×2 (00:27→12:05)
[2018-11-17] MEDS: HYDROMORPHONE HCL 0.5 MG/ 0.5 ML SYRINGE (J1170 PER 1) IV PRN ×6 (01:16→21:06)
[2018-11-17] MEDS: HEPARIN SOD (PORCINE) 5000 UNITS/ML VIAL SC SCH ×3 (05:27→21:07)
[2018-11-17] MEDS: SLF 3 ML SYR IV SCH ×3 (06:00→21:08)
[2018-11-17 07:01] LABS: HEMATOCRIT 33.2 % (36.0-47.0); HEMOGLOBIN 10.3 g/dl (12.0-15.5); MEAN CORPUSCULAR HEMOGLOBIN 31.6 pg (27.0-33.0); MEAN CORPUSCULAR VOLUME 101.8 fl (80.0-96.0); PLATELET COUNT, AUTOMATED 258 10^3/uL (150-450); RED BLOOD COUNT 3.26 10^6/uL (4.00-5.40); WHITE BLOOD COUNT 4.7 10^3/uL (4.0-10.0)
[2018-11-17 07:32] LABS: ALBUMIN 2.4 GM/DL (3.2-5.2); ALT/SGPT 30 U/L (12-78); BILIRUBIN,TOTAL 0.1 MG/DL (0.2-1.0); BLOOD UREA NITROGEN 3 MG/DL (7-18); CARBON DIOXIDE LEVEL 27 MEQ/L (21-32); CHLORIDE LEVEL 112 MEQ/L (98-107); CREATININE FOR GFR 0.56 MG/DL (0.55-1.30); GLOMERULAR FILTRATION RATE > 60.0 (>51); GLUCOSE, FASTING 440 MG/DL (70-100); MAGNESIUM LEVEL 1.8 MG/DL (1.8-2.4); POTASSIUM SERUM 5.1 MEQ/L (3.5-5.1); SODIUM LEVEL 143 MEQ/L (136-145); TOTAL PROTEIN 5.9 GM/DL (6.4-8.2)
[2018-11-17] MEDS ORDERED: DEXTROSE 50% 50 ML SYRINGE IV PRN (07:45)
[2018-11-17] MEDS ORDERED: GLUCOSE 4 GM CHEW TABLET PO PRN (07:45)
[2018-11-17] MEDS ORDERED: GLUCAGON FOR INJ 1 MG VIAL (J1610) SC PRN (07:45)
--- NOTE | 2018-11-17 08:04 | IPNPDOC ---
Subjective Date Seen The patient was seen on 11/17/18. Subjective Chief Complaint/HPI SBO Events since last encounter Patient continues to c/o abdominal pain and nausea. Appears comfortable with observation outside of room. Once provider enters room, patient c/o severe abdominal pain and nausea. Decreased NG output. Constitutional: Denies: Chills, Fever, Night Sweats Pulmonary: Denies: Dyspnea, Cough Cardiovascular: Denies: Chest Pain, Palpitations, Orthopnea, Paroxysmal Noc. Dyspnea, Lt Headedness Gastrointestinal: Reports: Nausea, Abdominal Pain; Denies: Vomiting, Diarrhea, Constipation Objective Physical Examination General Exam: Positive: Alert, Cooperative, No Acute Distress Neck Exam: Positive: Supple Chest Exam: Positive: Clear to auscultation, Normal air movement Heart Exam: Positive: Rate Normal Abdomen Exam: Positive: BS Hypoactive, Soft, Tenderness, Other Extremity Exam: Negative: Edema Skin Exam: Positive: Nl turgor and temperature Neuro Exam: Positive: Normal Speech Psych Exam: Positive: Mood NL Assessment /Plan Problems (1) Small bowel obstruction Status: Acute Response to Treatment: Stable Problem Specific Plan: Consult Specialist Problem Text: patient has been very frustrated regarding chronic recurrent nature of SBO. Strongly considering [employer] status-family has been mostly supportive 11/17 increased HM 0.5 q4H to q3H, answered numerous questions re hospice 11/16/18: continues to have decreased output from NGT. Would appreciate surgery's input today. Will continue NGT, + alvimopan 11/15: only 100 cc output since yesterday but she is more distended, so continue NG with LIS. Flush and reposition the tube 11/14: continuing NG, still has significant output. abdomen is less distended 11/13/18: Surgery has been consulted. Patient currently NPO with NG tube until symptoms resolve 11/12/18 CT AP c closed loop SBO (2) Generalized abdominal pain Status: Acute Response to Treatment: Stable Problem Text: 11/16/18: hydromorphone decreased to 0.5 mg IV q 4h prn moderate pain. 11/14: analgesic reduced w/o compaint. 11/13/18: Recommendation from surgery is to decrease her Dilaudid use/dose over time as this may contribute to her decreased GI motility. D/C Diluadid 1.6mg q 3 hours today. We will continue to evaluate (3) Nausea & vomiting Status: Acute Problem Text: 11/13/18: She is currently on Zofran q 6 hours. We will add Reglan 5mg tid prn nausea (4) T2DM (type 2 diabetes mellitus) Status: Chronic Response to Treatment: Stable Problem Text: 11/13/18: Patient is currently NPO. BGs remain stable. Insulin regimen on hold. We will need to continue to monitor (5) Hypokalemia Status: Acute Problem Text: secondary to no po intake and ongoing NG losses. Krun X2 this am, change IV fluid to include 20mEq / L and repeat lab this afternoon. (6) Hypomagnesemia Onset Date: 02/24/2014 Status: Chronic Response to Treatment: Stable Problem Text: 11/16/18 stable K 3.8/Mg 1.8 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?: Yes (Heparin) VS, I&O, 24H, Fishbone Vital Signs/I&O Vital Signs Date Time Temp Pulse Resp B/P (MAP) Pulse Ox O2 Delivery O2 Flow Rate FiO2 11/17/18 06:00 93 Nasal Cannula 2.0 11/17/18 05:38 16 11/17/18 04:00 96.7 73 127/62 (83) I&O- Last 24 Hours up to 6 AM 11/17/18 06:00 Intake Total 1200 ml Output Total 1825 ml Balance -625 ml Laboratory Data 24H LABS Laboratory Tests 2 11/16/18 12:00: Bedside Glucose (Misc Panel) 190H 11/16/18 17:48: Bedside Glucose (Misc Panel) 217H 11/16/18 23:40: Bedside Glucose (Misc Panel) 249H 11/17/18 05:38: Nucleated Red Blood Cells % (auto) 0.0, Anion Gap 4L, Glomerular Filtration Rate > 60.0, Blood Urea Nitrogen 3L, Creatinine 0.56, Sodium Level 143, Potassium Level 5.1#, Chloride Level 112H, Carbon Dioxide Level 27, Calcium Level 8.0L, Aspartate Amino Transf (AST/SGOT) 18, Alanine Aminotransferase (ALT/SGPT) 30, Alkaline Phosphatase 100, Total Bilirubin 0.1L, Total Protein 5.9L, Albumin 2.4L, Magnesium Level 1.8, Albumin/Globulin Ratio 0.69L CBC/BMP Laboratory Tests 11/17/18 05:38 Red Blood Count 3.26 L, Mean Corpuscular Volume 101.8 H, Mean Corpuscular Hemoglobin 31.6, Mean Corpuscular Hemoglobin Concent 31.0 L, Red Cell Distribution Width 14.1, Calcium Level 8.0 L, Aspartate Amino Transf (AST/SGOT) 18, Alanine Aminotransferase (ALT/SGPT) 30, Alkaline Phosphatase 100, Total Bilirubin 0.1 L, Total Protein 5.9 L, Albumin 2.4 L Sarika Alvarado Nov 17, 2018 08:04 Kg Bass M.D. Nov 17, 2018 16:38
[2018-11-17] MEDS: AMITRIPTYLINE 50 MG TAB PO SCH ×2 (08:05→21:07)
[2018-11-17] MEDS: HumaLOG INSULIN (NovoLOG) PER UNIT SC SCH ×3 (08:06→17:39)
[2018-11-17] MEDS: ADVAIR HFA 230/21MCG INHALER INH SCH ×2 (08:09→20:17)
[2018-11-17] MEDS: ALVIMOPAN 12 MG CAPSULE (ENTEREG) PO SCH ×2 (08:59→21:07)
[2018-11-17] MEDS: NS 1,000 ML IV SCH ×2 (09:40→21:08)
[2018-11-17] MEDS: ONDANSETRON 4MG/2ML VIAL (J2405) IV PRN (11:38)
[2018-11-18] VITALS (22 sets, daily range): BP systolic 138–173; BP diastolic 77–85; O2SAT 90–97
[2018-11-18] MEDS: FAMOTIDINE IV BAG 20 MG in IV 1 EA IV SCH ×2 (00:35→12:58)
[2018-11-18] MEDS: HumaLOG INSULIN (NovoLOG) PER UNIT SC SCH ×4 (00:35→17:22)
[2018-11-18] MEDS: HYDROMORPHONE HCL 0.5 MG/ 0.5 ML SYRINGE (J1170 PER 1) IV PRN ×7 (00:36→20:36)
[2018-11-18] MEDS: NS 1,000 ML IV SCH ×2 (04:24→16:42)
[2018-11-18 04:49] LABS: HEMATOCRIT 34.1 % (36.0-47.0); HEMOGLOBIN 10.9 g/dl (12.0-15.5); MEAN CORPUSCULAR HEMOGLOBIN 32.2 pg (27.0-33.0); MEAN CORPUSCULAR VOLUME 100.6 fl (80.0-96.0); PLATELET COUNT, AUTOMATED 262 10^3/uL (150-450); RED BLOOD COUNT 3.39 10^6/uL (4.00-5.40)
[2018-11-18 05:15] LABS: ALBUMIN 2.6 GM/DL (3.2-5.2); ALT/SGPT 43 U/L (12-78); BILIRUBIN,TOTAL 0.2 MG/DL (0.2-1.0); BLOOD UREA NITROGEN 6 MG/DL (7-18); CALCIUM LEVEL 8.6 MG/DL (8.5-10.1); CARBON DIOXIDE LEVEL 27 MEQ/L (21-32); CHLORIDE LEVEL 108 MEQ/L (98-107); CREATININE FOR GFR 0.43 MG/DL (0.55-1.30); GLOMERULAR FILTRATION RATE > 60.0 (>51); GLUCOSE, FASTING 93 MG/DL (70-100); MAGNESIUM LEVEL 1.7 MG/DL (1.8-2.4); POTASSIUM SERUM 3.6 MEQ/L (3.5-5.1); SODIUM LEVEL 143 MEQ/L (136-145); TOTAL PROTEIN 6.5 GM/DL (6.4-8.2)
[2018-11-18] MEDS: HEPARIN SOD (PORCINE) 5000 UNITS/ML VIAL SC SCH ×3 (06:13→20:36)
[2018-11-18] MEDS: SLF 3 ML SYR IV SCH ×3 (06:13→20:37)
--- NOTE | 2018-11-18 07:57 | IPNPDOC ---
Subjective Date Seen The patient was seen on 11/18/18. Subjective Chief Complaint/HPI SBO Events since last encounter Continues to have less distention in abdomen. Planned imaging this am ordered by surgical service. Pain much better Constitutional: Denies: Chills, Fever, Night Sweats Pulmonary: Denies: Dyspnea, Cough Cardiovascular: Denies: Chest Pain, Palpitations, Orthopnea, Paroxysmal Noc. Dyspnea, Lt Headedness Gastrointestinal: Reports: Nausea, Abdominal Pain; Denies: Vomiting, Diarrhea, Constipation Psych: Reports: Mood Normal; Denies: Depression, Memory Issues Objective Physical Examination General Exam: Positive: Alert, Cooperative, No Acute Distress Neck Exam: Positive: Supple Chest Exam: Positive: Clear to auscultation, Normal air movement Heart Exam: Positive: Rate Normal Abdomen Exam: Positive: BS Hypoactive (improving), Soft, Tenderness (improved), Other (minimal ostomy output put then again, she has been NPO for days.) Extremity Exam: Negative: Edema Skin Exam: Positive: Nl turgor and temperature Neuro Exam: Positive: Normal Speech Psych Exam: Positive: Mood NL Assessment /Plan Problems (1) Small bowel obstruction Status: Acute Response to Treatment: Stable Problem Specific Plan: Consult Specialist Problem Text: 11/18/2018: abdominal imaging today shows no air/fluid levels or distention. patient has been very frustrated regarding chronic recurrent nature of SBO. Strongly considering [employer]NIC[employer] status-family has been mostly supportive 11/17 increased HM 0.5 q4H to q3H, answered numerous questions re hospice 11/16/18: continues to have decreased output from NGT. Would appreciate surgery's input today. Will continue NGT, + alvimopan 11/15: only 100 cc output since yesterday but she is more distended, so continue NG with LIS. Flush and reposition the tube 11/14: continuing NG, still has significant output. abdomen is less distended 11/13/18: Surgery has been consulted. Patient currently NPO with NG tube until symptoms resolve 11/12/18 CT AP c closed loop SBO (2) Generalized abdominal pain Status: Acute Response to Treatment: Stable Problem Text: 11/18/ minimal discomfort reported today. 11/16/18: hydromorphone decreased to 0.5 mg IV q 4h prn moderate pain. 11/14: analgesic reduced w/o compaint. 11/13/18: Recommendation from surgery is to decrease her Dilaudid use/dose over time as this may contribute to her decreased GI motility. D/C Diluadid 1.6mg q 3 hours today. We will continue to evaluate (3) Nausea & vomiting Status: Acute Problem Text: 11/13/18: She is currently on Zofran q 6 hours. We will add Reglan 5mg tid prn nausea (4) T2DM (type 2 diabetes mellitus) Status: Chronic Response to Treatment: Stable Problem Text: 11/13/18: Patient is currently NPO. BGs remain stable. Insulin regimen on hold. We will need to continue to monitor (5) Hypokalemia Status: Resolved Problem Text: secondary to no po intake and ongoing NG losses. Krun X2 this am, change IV fluid to include 20mEq / L and repeat lab this afternoon. (6) Hypomagnesemia Onset Date: 02/24/2014 Status: Chronic Response to Treatment: Stable Problem Text: 11/18/18: 1.7 today. mag run ordered 11/16/18 stable K 3.8/Mg 1.8 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?: Yes (Heparin) VS, I&O, 24H, Fishbone Vital Signs/I&O Vital Signs Date Time Temp Pulse Resp B/P (MAP) Pulse Ox O2 Delivery O2 Flow Rate FiO2 11/18/18 07:36 18 11/18/18 06:00 91 Room Air 11/18/18 04:00 97.0 79 173/79 (110) 11/17/18 06:00 2.0 I&O- Last 24 Hours up to 6 AM 11/18/18 06:00 Intake Total 1980 ml Output Total 3200 ml Balance -1220 ml Laboratory Data 24H LABS Laboratory Tests 2 11/17/18 12:00: Bedside Glucose (Misc Panel) 101 11/17/18 17:22: Bedside Glucose (Misc Panel) 95 11/18/18 00:25: Bedside Glucose (Misc Panel) 121H 11/18/18 04:27: Nucleated Red Blood Cells % (auto) 0.0, Anion Gap 8, Glomerular Filtration Rate > 60.0, Blood Urea Nitrogen 6#L, Creatinine 0.43L, Sodium Level 143, Potassium Level 3.6#, Chloride Level 108H, Carbon Dioxide Level 27, Calcium Level 8.6, Aspartate Amino Transf (AST/SGOT) 39H, Alanine Aminotransferase (ALT/SGPT) 43, Alkaline Phosphatase 117, Total Bilirubin 0.2#, Total Protein 6.5, Albumin 2.6L, Magnesium Level 1.7L, Albumin/Globulin Ratio 0.67L CBC/BMP Laboratory Tests 11/18/18 04:27 Red Blood Count 3.39 L, Mean Corpuscular Volume 100.6 H, Mean Corpuscular Hemoglobin 32.2, Mean Corpuscular Hemoglobin Concent 32.0, Red Cell Distribution Width 14.1, Calcium Level 8.6, Aspartate Amino Transf (AST/SGOT) 39 H, Alanine Aminotransferase (ALT/SGPT) 43, Alkaline Phosphatase 117, Total Bilirubin 0.2 #, Total Protein 6.5, Albumin 2.6 L Sarika Alvarado Nov 18, 2018 07:57 Yosi Jiménez MD Nov 18, 2018 09:56
[2018-11-18] MEDS ORDERED: MAG SULF 1GM/100ML (MAG RUN) 1 GM in IV 1 EA IV ONE (08:00)
[2018-11-18] MEDS: ADVAIR HFA 230/21MCG INHALER INH SCH ×2 (08:14→21:23)
--- NOTE | 2018-11-18 09:34 | REP ---
Clinical: Small bowel obstruction. Technique: Upright view of the chest with supine and upright views of the abdomen and pelvis. Findings: Nasogastric tube courses below left hemidiaphragm. Epidural stimulator at the lower thoracic level noted. [id number] with tip in the SVC/right atrium. Mild bibasilar atelectasis suggested. Evidence for recent abdominal surgery with colostomy overlying the left mid abdomen. The bowel gas pattern is nonspecific. No obvious free air. Impression: No evidence for bowel obstruction. Mild bibasilar atelectasis suggested. Electronically Signed by Darius Roth MD 11/18/2018 09:25 A
[2018-11-18] MEDS: ALVIMOPAN 12 MG CAPSULE (ENTEREG) PO SCH ×3 (09:55→21:47)
[2018-11-18] MEDS: AMITRIPTYLINE 50 MG TAB PO SCH ×2 (09:55→20:37)
[2018-11-18] MEDS: ONDANSETRON 4MG/2ML VIAL (J2405) IV PRN (10:32)
[2018-11-19] MEDS: HYDROMORPHONE HCL 0.5 MG/ 0.5 ML SYRINGE (J1170 PER 1) IV PRN ×8 (00:02→22:52)
[2018-11-19] MEDS: HumaLOG INSULIN (NovoLOG) PER UNIT SC SCH ×5 (00:02→23:41)
[2018-11-19] MEDS: FAMOTIDINE IV BAG 20 MG in IV 1 EA IV SCH ×2 (00:02→12:55)
[2018-11-19] MEDS: NS 1,000 ML IV SCH ×4 (00:15→23:42)
[2018-11-19 04:00] VITALS: BP 143/83
--- NOTE | 2018-11-19 05:54 | IPN ---
DATE OF VISIT: 11/16/2018 The patient has had some ostomy output and it is very liquid. She still complains of abdominal pain as she typically does and at this point she had less distension that she had previously. She has been receiving her pain medications around the clock with what appears to be adequate relief although she states that she is still in pain. Overall she has had no nausea, no vomiting. From a vital signs standpoint, she has been afebrile. Her white count has been fine and she has had about 300 mL of bilious drainage from her nasogastric (NG) tube. On her abdominal exam, she is less distended than she was previously. She is tender throughout her abdomen with tenderness in the typical locations that she is extremely tender just to the right of her midline incision and throughout the left side of the abdomen. Ostomy is pink and clean, no bloody drainage. IMPRESSION AND PLAN: The patient has a partial bowel obstruction probably related to her numerous multiple adhesions and inflammation. She has had a frozen abdomen and it has made operative intervention extremely difficult. 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 I had a long discussion with her today concerning heroic treatment for her which would include operative intervention if she has persistence of her obstructive looking picture or bowel, etc.. Unfortunately, we are not able to reliably follow her pain level given that it is typically 12/10 on a daily basis and thus will have to follow her clinically with her abdominal picture and her laboratory and nasogastric/ostomy output.
[2018-11-19] MEDS: HEPARIN SOD (PORCINE) 5000 UNITS/ML VIAL SC SCH ×3 (06:14→21:55)
[2018-11-19] MEDS: SLF 3 ML SYR IV SCH ×3 (06:15→21:55)
[2018-11-19 06:50] LABS: HEMATOCRIT 32.8 % (36.0-47.0); HEMOGLOBIN 10.7 g/dl (12.0-15.5); MEAN CORPUSCULAR HEMOGLOBIN 32.6 pg (27.0-33.0); MEAN CORPUSCULAR HGB CONC 32.6 g/dl (32.0-36.5); PLATELET COUNT, AUTOMATED 250 10^3/uL (150-450); RED BLOOD COUNT 3.28 10^6/uL (4.00-5.40); WHITE BLOOD COUNT 7.4 10^3/uL (4.0-10.0)
[2018-11-19 07:13] LABS: ALBUMIN 2.8 GM/DL (3.2-5.2); ALT/SGPT 47 U/L (12-78); BILIRUBIN,TOTAL 0.3 MG/DL (0.2-1.0); BLOOD UREA NITROGEN 6 MG/DL (7-18); CALCIUM LEVEL 8.7 MG/DL (8.5-10.1); CARBON DIOXIDE LEVEL 21 MEQ/L (21-32); CHLORIDE LEVEL 106 MEQ/L (98-107); CREATININE FOR GFR 0.42 MG/DL (0.55-1.30); GLOMERULAR FILTRATION RATE > 60.0 (>51); GLUCOSE, FASTING 133 MG/DL (70-100); MAGNESIUM LEVEL 1.6 MG/DL (1.8-2.4); POTASSIUM SERUM 3.9 MEQ/L (3.5-5.1); SODIUM LEVEL 139 MEQ/L (136-145); TOTAL PROTEIN 6.9 GM/DL (6.4-8.2)
--- NOTE | 2018-11-19 07:25 | IPN ---
DATE: 11/18/2018 The patient continues with her partial obstructive picture, although she has had less distention. She continues to have a significant amount of NG output, although she is drinking some minimal amount of fluid, ice chips, etc. She has had no fevers and her white count has been fine. Her abdominal exam is stable. X-rays were performed this morning and showed no evidence of air-fluid levels, although it may be that it is mostly just fluid-filled bowel. IMPRESSION AND PLAN: The patient has a partial obstruction, although it has been very difficult to assess this over the years and thus will obtain a small-bowel follow-through tomorrow and will see what this shows. Otherwise will keep her nothing by mouth (n.p.o.) for right now and IV fluids as necessary. Continue with issues as medicine deems necessary as per the primary care provider.
[2018-11-19] MEDS: ONDANSETRON 4MG/2ML VIAL (J2405) IV PRN ×2 (07:40→18:22)
--- NOTE | 2018-11-19 07:47 | IPNPDOC ---
Subjective Date Seen The patient was seen on 11/19/18. Subjective Chief Complaint/HPI SBO Events since last encounter Planned SBFT today as ordered by Surgical Service. C/o wheezing and cough for last 24 hours. Afebrile. takes prn Xopenex nebs at home. Constitutional: Denies: Chills, Fever, Night Sweats Pulmonary: Reports: Cough; Denies: Dyspnea Gastrointestinal: Reports: Abdominal Pain; Denies: Nausea, Vomiting, Diarrhea, Constipation Genitourinary: Denies: Dysuria, Frequency, Incontinence, Retention Psych: Reports: Mood Normal; Denies: Depression, Memory Issues Objective Physical Examination General Exam: Positive: Alert, Cooperative, No Acute Distress Neck Exam: Positive: Supple Chest Exam: Positive: Clear to auscultation, Normal air movement Heart Exam: Positive: Rate Normal Abdomen Exam: Positive: BS Hypoactive (improving), Soft, Tenderness (improved), Other (minimal ostomy output put then again, she has been NPO for days.) Extremity Exam: Negative: Edema Skin Exam: Positive: Nl turgor and temperature Neuro Exam: Positive: Normal Speech Psych Exam: Positive: Mood NL Assessment /Plan Problems (1) Small bowel obstruction Status: Acute Response to Treatment: Stable Problem Specific Plan: Consult Specialist Problem Text: 11/18/2018: abdominal imaging today shows no air/fluid levels or distention. patient has been very frustrated regarding chronic recurrent nature of SBO. 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 Would appreciate surgery's input today. Will continue NGT, + alvimopan 11/15: only 100 cc output since yesterday but she is more distended, so continue NG with LIS. Flush and reposition the tube 11/14: continuing NG, still has significant output. abdomen is less distended 11/13/18: Surgery has been consulted. Patient currently NPO with NG tube until symptoms resolve 11/12/18 CT AP c closed loop SBO (2) Generalized abdominal pain Status: Acute Response to Treatment: Stable Problem Text: 11/18/ minimal discomfort reported today. 11/16/18: hydromorphone decreased to 0.5 mg IV q 4h prn moderate pain. 11/14: analgesic reduced w/o compaint. 11/13/18: Recommendation from surgery is to decrease her Dilaudid use/dose over time as this may contribute to her decreased GI motility. D/C Diluadid 1.6mg q 3 hours today. We will continue to evaluate (3) Cough Status: Acute Problem Text: Xopenex nebs and incentive spirometry ordered. (4) Nausea & vomiting Status: Acute Problem Text: 11/13/18: She is currently on Zofran q 6 hours. We will add Reglan 5mg tid prn nausea (5) T2DM (type 2 diabetes mellitus) Status: Chronic Response to Treatment: Stable Problem Text: 11/13/18: Patient is currently NPO. BGs remain stable. Insulin regimen on hold. We will need to continue to monitor (6) Hypokalemia Status: Resolved Problem Text: secondary to no po intake and ongoing NG losses. Krun X2 this am, change IV fluid to include 20mEq / L and repeat lab this afternoon. (7) Hypomagnesemia Onset Date: 02/24/2014 Status: Chronic Response to Treatment: Stable Problem Text: 11/18/18: 1.7 today. mag run ordered 11/16/18 stable K 3.8/Mg 1.8 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?: Yes (Heparin) VS, I&O, 24H, Fishbone Vital Signs/I&O Vital Signs Date Time Temp Pulse Resp B/P (MAP) Pulse Ox O2 Delivery O2 Flow Rate FiO2 11/19/18 06:45 18 11/19/18 04:00 97.5 85 143/83 (103) 93 11/18/18 18:00 Room Air 11/17/18 06:00 2.0 I&O- Last 24 Hours up to 6 AM 11/19/18 05:59 Intake Total 1900 ml Output Total 1930 ml Balance -30 ml Laboratory Data 24H LABS Laboratory Tests 2 11/18/18 12:26: Bedside Glucose (Misc Panel) 158H 11/18/18 16:55: Bedside Glucose (Misc Panel) 128H 11/18/18 23:57: Bedside Glucose (Misc Panel) 143H 11/19/18 06:08: Bedside Glucose (Misc Panel) 122H 11/19/18 06:14: Nucleated Red Blood Cells % (auto) 0.0, Anion Gap 12, Glomerular Filtration Rate > 60.0, Blood Urea Nitrogen 6L, Creatinine 0.42L, Sodium Level 139, Potassium Level 3.9, Chloride Level 106, Carbon Dioxide Level 21, Calcium Level 8.7, Aspartate Amino Transf (AST/SGOT) 28, Alanine Aminotransferase (ALT/SGPT) 47, Alkaline Phosphatase 140H, Total Bilirubin 0.3, Total Protein 6.9, Albumin 2.8L, Magnesium Level 1.6L, Albumin/Globulin Ratio 0.68L CBC/BMP Laboratory Tests 11/19/18 06:14 Red Blood Count 3.28 L, Mean Corpuscular Volume 100.0 H, Mean Corpuscular Hemoglobin 32.6, Mean Corpuscular Hemoglobin Concent 32.6, Red Cell Distribution Width 13.9, Calcium Level 8.7, Aspartate Amino Transf (AST/SGOT) 28, Alanine Aminotransferase (ALT/SGPT) 47, Alkaline Phosphatase 140 H, Total Bilirubin 0.3, Total Protein 6.9, Albumin 2.8 L Sarika Alvarado HOSPITAL CLE[employer]ER Nov 19, 2018 07:47
[2018-11-19 08:00] VITALS: BP 126/82
[2018-11-19] MEDS: LEVALBUTEROL 1.25 MG/0.5 ML CONCENTRATE NEB INH SCH ×3 (08:00→20:00)
[2018-11-19] MEDS: ADVAIR HFA 230/21MCG INHALER INH SCH ×2 (08:49→20:00)
[2018-11-19] MEDS: ALVIMOPAN 12 MG CAPSULE (ENTEREG) PO SCH ×2 (09:15→21:54)
[2018-11-19] MEDS: AMITRIPTYLINE 50 MG TAB PO SCH (09:15)
[2018-11-19] MEDS ORDERED: GASTROGRAFIN SOLUTION 30ML (Q9963) As Ordered ONE (09:31)
[2018-11-19] MEDS ORDERED: METOCLOPRAMIDE 5 MG TAB NG PRN (09:45)
[2018-11-19] MEDS ORDERED: GLUCOSE 4 GM CHEW TABLET NG PRN (09:45)
[2018-11-19] MEDS ORDERED: E-Z-PAQUE 96% w/w SUSP 176GM BTL As Ordered ONE (09:46)
[2018-11-19 12:00] VITALS: BP 140/73
[2018-11-19] MEDS ORDERED: MAGNESIUM SULFATE 1 GM/100 ML D5W BAG (10MG/ML) (J3475) As Ordered ONE ×2 (12:57→13:37)
[2018-11-19] MEDS: MAG SULF 1GM/100ML (MAG RUN) 1 GM in IV 1 EA IV SCH ×2 (12:59→14:10)
[2018-11-19 16:00] VITALS: BP 133/60
--- NOTE | 2018-11-19 19:13 | REP ---
SMALL BOWEL SERIES: Wire Rope Sales Representative films of the abdomen and pelvis demonstrate nonobstructive bowel gas pattern. Multiple metallic clips are seen throughout the abdomen and pelvis. There is an ostomy in the left mid abdomen. Initially the nasogastric tube was visualized to lie in the distal esophagus. This was subsequently advanced into the stomach. Barium was instilled through the nasogastric tube opacifying a nondilated stomach which appears grossly unremarkable. There is passage of barium through small bowel. There appears to be a diverticulum of the transverse portion of the duodenum. Normal mucosal folds are seen of the small bowel loops, which are not significantly dilated. There is free passage into the ostomy bag with no obstruction. No gross strictures are seen. IMPRESSION: No evidence of small bowel obstruction. Electronically Signed by Geovanni Camejo MD 11/20/2018 09:56 A
[2018-11-19 20:00] VITALS: BP 142/67
--- NOTE | 2018-11-19 20:41 | REP ---
CHEST, TWO VIEWS: Two views of the chest are performed. There appears to be some patchy left lower lobe infiltrate which is new compared to the prior studies. Right lung is unchanged with mild chronic interstitial prominence inferiorly. Prominent cardiac silhouette is stable. Mediastinal silhouette is stable. Nasogastric tube is seen traversing into the stomach. There is a right central venous catheter again seen unchanged. IMPRESSION: Mild patchy left lower lobe infiltrate. Electronically Signed by Geovanni Camejo MD 11/20/2018 10:03 A
[2018-11-19] MEDS ORDERED: guaiFENesin ER 600 MG TAB PO SCH (21:00)
[2018-11-19] MEDS: guaiFENesin SYRUP 200 MG/10 ML UDC NG PRN (21:54)
[2018-11-19] MEDS: AMITRIPTYLINE 50 MG TAB NG SCH (21:54)
[2018-11-19] MEDS: LevoFLOXacin IV 750 MG in IV 1 EA IV SCH (23:38)
[2018-11-19 23:59] VITALS: BP 134/62
[2018-11-20] VITALS (24 sets, daily range): BP systolic 126–142; BP diastolic 59–70; O2SAT 90–94
[2018-11-20] MEDS: LEVALBUTEROL 1.25 MG/0.5 ML CONCENTRATE NEB INH SCH ×4 (01:49→20:00)
[2018-11-20] MEDS: FAMOTIDINE IV BAG 20 MG in IV 1 EA IV SCH ×2 (01:58→12:18)
[2018-11-20] MEDS: HYDROMORPHONE HCL 0.5 MG/ 0.5 ML SYRINGE (J1170 PER 1) IV PRN ×6 (01:59→20:05)
[2018-11-20] MEDS: HEPARIN SOD (PORCINE) 5000 UNITS/ML VIAL SC SCH ×3 (05:25→22:24)
[2018-11-20 05:52] LABS: HEMATOCRIT 33.7 % (36.0-47.0); HEMOGLOBIN 10.7 g/dl (12.0-15.5); MEAN CORPUSCULAR HEMOGLOBIN 31.7 pg (27.0-33.0); MEAN CORPUSCULAR HGB CONC 31.8 g/dl (32.0-36.5); MEAN CORPUSCULAR VOLUME 99.7 fl (80.0-96.0); PLATELET COUNT, AUTOMATED 265 10^3/uL (150-450); RED BLOOD COUNT 3.38 10^6/uL (4.00-5.40); WHITE BLOOD COUNT 8.2 10^3/uL (4.0-10.0)
[2018-11-20] MEDS: SLF 3 ML SYR IV SCH ×3 (06:01→22:24)
[2018-11-20 06:25] LABS: ALBUMIN 2.7 GM/DL (3.2-5.2); ALT/SGPT 39 U/L (12-78); BILIRUBIN,TOTAL 0.2 MG/DL (0.2-1.0); BLOOD UREA NITROGEN 6 MG/DL (7-18); CALCIUM LEVEL 9.1 MG/DL (8.5-10.1); CARBON DIOXIDE LEVEL 21 MEQ/L (21-32); CHLORIDE LEVEL 106 MEQ/L (98-107); GLOMERULAR FILTRATION RATE > 60.0 (>51); GLUCOSE, FASTING 180 MG/DL (70-100); MAGNESIUM LEVEL 1.7 MG/DL (1.8-2.4); POTASSIUM SERUM 4.1 MEQ/L (3.5-5.1); SODIUM LEVEL 138 MEQ/L (136-145); TOTAL PROTEIN 6.9 GM/DL (6.4-8.2)
[2018-11-20] MEDS: HumaLOG INSULIN (NovoLOG) PER UNIT SC SCH ×3 (06:30→17:48)
[2018-11-20] MEDS: ONDANSETRON 4MG/2ML VIAL (J2405) IV PRN ×2 (07:42→15:13)
[2018-11-20] MEDS: ADVAIR HFA 230/21MCG INHALER INH SCH ×2 (08:19→20:15)
[2018-11-20] MEDS: ALVIMOPAN 12 MG CAPSULE (ENTEREG) PO SCH ×2 (08:29→20:04)
[2018-11-20] MEDS: AMITRIPTYLINE 50 MG TAB NG SCH ×2 (08:30→20:05)
--- NOTE | 2018-11-20 08:39 | IPNPDOC ---
Subjective Date Seen The patient was seen on 11/20/18. Subjective Chief Complaint/HPI Pt this morning states that she is not feeling any better. She cont to have abd pain, not passing any gas, some nausea. She has just had the NG tube pulled and is going to attempt some clear liquids. She c/o SOB with some cough General: Reports: Fatigue Constitutional: Denies: Chills, Fever ENT: Denies: Head Aches Pulmonary: Reports: Dyspnea, Cough Cardiovascular: Denies: Chest Pain, Palpitations Gastrointestinal: Reports: Nausea, Abdominal Pain; Denies: Vomiting Neurological: Reports: Weakness Psych: Reports: Depression Objective Physical Examination General Exam: Positive: Alert, Cooperative, No Acute Distress ENT Exam: Positive: Mucous membr. moist/pink Neck Exam: Positive: Supple Chest Exam: Positive: Rhonchi (LLL, slightly improves with cough), Diminished Heart Exam: Positive: Rate Normal Abdomen Exam: Positive: BS Hypoactive, Soft, Tenderness, Other (minimal ostomy output put then again, she has been NPO for days.) Extremity Exam: Negative: Edema Skin Exam: Positive: Nl turgor and temperature Neuro Exam: Positive: Normal Speech Psych Exam: Positive: Mood NL Assessment /Plan Problems (1) LLL pneumonia Status: Acute Response to Treatment: Stable Discussed With: Nurse, Patient Problem Specific Plan: Monitor Clinically, Repeat Labs Problem Text: D2 levo 750 IV 11/19 new onset cough c CXR patchy LLL infiltrate (2) Small bowel obstruction Status: Acute Response to Treatment: Stable Problem Specific Plan: Consult Specialist Problem Text: 11/20 Mgmt per GS, NG pulled this morning, SBFT without signs of obstruction. 11/19/18 SBFT s SBO patient has been very frustrated regarding chronic recurrent nature of SBO. 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 Would appreciate surgery's input today. Will continue NGT, + alvimopan 11/15: only 100 cc output since yesterday but she is more distended, so continue NG with LIS. Flush and reposition the tube 11/14: continuing NG, still has significant output. abdomen is less distended 11/13/18: Surgery has been consulted. Patient currently NPO with NG tube until symptoms resolve 11/12/18 CT AP c closed loop SBO (3) Generalized abdominal pain Status: Acute Response to Treatment: Stable Problem Text: 11/20 Persistent abd pain, although she does feel it is slightly better. 11/18 minimal discomfort reported today. 11/16/18: hydromorphone decreased to 0.5 mg IV q 4h prn moderate pain. 11/14: analgesic reduced w/o compaint. 11/13/18: Recommendation from surgery is to decrease her Dilaudid use/dose over time as this may contribute to her decreased GI motility. D/C Diluadid 1.6mg q 3 hours today. We will continue to evaluate (4) Nausea & vomiting Status: Acute Problem Text: 11/13/18: She is currently on Zofran q 6 hours. We will add Reglan 5mg tid prn nausea (5) T2DM (type 2 diabetes mellitus) Status: Chronic Response to Treatment: Stable Problem Text: 11/13/18: Patient is currently NPO. BGs remain stable. Insulin regimen on hold. We will need to continue to monitor (6) Hypokalemia Status: Resolved Problem Text: continue K runs prn (7) Hypomagnesemia Onset Date: 02/24/2014 Status: Chronic Response to Treatment: Stable Problem Text: continue prn Mg run 11/20 1.7 (8) Physical deconditioning Status: Chronic Problem Text: 11/18 PT safe to dc home WMS 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?: Yes (Heparin) VS, I&O, 24H, Fishbone Vital Signs/I&O Vital Signs Date Time Temp Pulse Resp B/P (MAP) Pulse Ox O2 Delivery O2 Flow Rate FiO2 11/20/18 08:31 20 11/20/18 06:00 91 Room Air 11/20/18 04:00 96.5 90 136/64 (88) 11/19/18 09:25 2.0 I&O- Last 24 Hours up to 6 AM 11/20/18 06:00 Intake Total 2050 ml Output Total 2775 ml Balance -725 ml Laboratory Data 24H LABS Laboratory Tests 2 11/19/18 13:10: Bedside Glucose (Misc Panel) 277H 11/19/18 16:00: Bedside Glucose (Misc Panel) 190H 11/19/18 18:08: Bedside Glucose (Misc Panel) 178H 11/19/18 23:39: Bedside Glucose (Misc Panel) 147H 11/20/18 05:40: Nucleated Red Blood Cells % (auto) 0.0 11/20/18 05:41: Anion Gap 11, Glomerular Filtration Rate > 60.0, Blood Urea Nitrogen 6L, Creatinine 0.40L, Sodium Level 138, Potassium Level 4.1, Chloride Level 106, Carbon Dioxide Level 21, Calcium Level 9.1, Aspartate Amino Transf (AST/SGOT) 20, Alanine Aminotransferase (ALT/SGPT) 39, Alkaline Phosphatase 130H, Total Bilirubin 0.2, Total Protein 6.9, Albumin 2.7L, Magnesium Level 1.7L, Albumin/Globulin Ratio 0.64L CBC/BMP Laboratory Tests 11/20/18 05:40 Red Blood Count 3.38 L, Mean Corpuscular Volume 99.7 H, Mean Corpuscular Hemoglobin 31.7, Mean Corpuscular Hemoglobin Concent 31.8 L, Red Cell Distribution Width 14.2 11/20/18 05:41 Calcium Level 9.1, Aspartate Amino Transf (AST/SGOT) 20, Alanine Aminotransferase (ALT/SGPT) 39, Alkaline Phosphatase 130 H, Total Bilirubin 0.2, Total Protein 6.9, Albumin 2.7 L ARELY MARC PA-C Nov 20, 2018 08:39 Kg Bass M.D. Nov 20, 2018 16:08
[2018-11-20] MEDS: NS 1,000 ML IV SCH ×2 (11:34→22:23)
--- NOTE | 2018-11-20 18:02 | IPN ---
DATE: 11/20/2018 Patient's upper GI was reviewed, shows good flow into the ostomy appliance without significant obstructive or dilatation of the bowel, essentially looks as though there is no bowel obstruction. On her physical exam today, her abdomen is softly distended. She is tender throughout as she typically is. She has been afebrile. Her white count is normal, and I started her on a clear liquid diet this morning and she has tolerated a clear liquid diet for lunch. IMPRESSION AND PLAN: The patient has resolution of her ileus/partial small bowel obstruction and my recommendation is to slowly progress her diet over the ensuing few days.
[2018-11-20] MEDS: LevoFLOXacin IV 750 MG in IV 1 EA IV SCH (22:23)
[2018-11-21] VITALS (22 sets, daily range): BP systolic 111–144; BP diastolic 53–80; O2SAT 86–100
[2018-11-21] MEDS: HYDROMORPHONE HCL 0.5 MG/ 0.5 ML SYRINGE (J1170 PER 1) IV PRN ×8 (00:01→23:29)
[2018-11-21] MEDS: FAMOTIDINE IV BAG 20 MG in IV 1 EA IV SCH ×3 (00:01→23:20)
[2018-11-21] MEDS: HumaLOG INSULIN (NovoLOG) PER UNIT SC SCH ×4 (00:02→18:03)
[2018-11-21] MEDS: LEVALBUTEROL 1.25 MG/0.5 ML CONCENTRATE NEB INH SCH ×4 (02:03→20:00)
[2018-11-21 05:26] LABS: HEMATOCRIT 29.9 % (36.0-47.0); HEMOGLOBIN 9.8 g/dl (12.0-15.5); MEAN CORPUSCULAR HEMOGLOBIN 31.6 pg (27.0-33.0); MEAN CORPUSCULAR HGB CONC 32.8 g/dl (32.0-36.5); MEAN CORPUSCULAR VOLUME 96.5 fl (80.0-96.0); PLATELET COUNT, AUTOMATED 247 10^3/uL (150-450); WHITE BLOOD COUNT 9.6 10^3/uL (4.0-10.0)
[2018-11-21 05:55] LABS: ALBUMIN 2.4 GM/DL (3.2-5.2); ALT/SGPT 30 U/L (12-78); BILIRUBIN,TOTAL 0.2 MG/DL (0.2-1.0); CARBON DIOXIDE LEVEL 23 MEQ/L (21-32); CHLORIDE LEVEL 106 MEQ/L (98-107); CREATININE FOR GFR 0.44 MG/DL (0.55-1.30); GLOMERULAR FILTRATION RATE > 60.0 (>51); GLUCOSE, FASTING 201 MG/DL (70-100); MAGNESIUM LEVEL 1.5 MG/DL (1.8-2.4); POTASSIUM SERUM 3.7 MEQ/L (3.5-5.1); SODIUM LEVEL 138 MEQ/L (136-145); TOTAL PROTEIN 6.4 GM/DL (6.4-8.2)
[2018-11-21 05:56] LABS: BLOOD UREA NITROGEN 2 MG/DL (7-18)
[2018-11-21] MEDS: HEPARIN SOD (PORCINE) 5000 UNITS/ML VIAL SC SCH ×3 (06:24→20:11)
[2018-11-21] MEDS: SLF 3 ML SYR IV SCH ×3 (06:25→22:00)
[2018-11-21] MEDS: ADVAIR HFA 230/21MCG INHALER INH SCH ×2 (07:25→20:17)
[2018-11-21] MEDS: AMITRIPTYLINE 50 MG TAB NG SCH ×2 (09:18→20:10)
[2018-11-21] MEDS: ALVIMOPAN 12 MG CAPSULE (ENTEREG) PO SCH ×2 (09:19→20:10)
[2018-11-21] MEDS: guaiFENesin SYRUP 200 MG/10 ML UDC NG PRN ×2 (09:24→20:09)
[2018-11-21] MEDS: NS 1,000 ML IV SCH (11:17)
--- NOTE | 2018-11-21 12:00 | IPNPDOC ---
Subjective Date Seen The patient was seen on 11/21/18. Subjective Chief Complaint/HPI tolerating po liquid-took 780 11/20 Constitutional: Denies: Chills Eyes: Denies: Pain ENT: Denies: Head Aches Skin: Denies: Rash Pulmonary: Reports: Cough; Denies: Dyspnea Cardiovascular: Denies: Chest Pain Gastrointestinal: Reports: Nausea; Denies: Vomiting Genitourinary: Denies: Dysuria Objective Physical Examination General Exam: Positive: Alert, Cooperative, No Acute Distress ENT Exam: Positive: Mucous membr. moist/pink Neck Exam: Positive: Supple Chest Exam: Positive: Rhonchi (LLL, slightly improves with cough), Diminished Heart Exam: Positive: Rate Normal Abdomen Exam: Positive: BS Hypoactive, Soft, Tenderness, Other (minimal ostomy output put then again, she has been NPO for days.) Extremity Exam: Negative: Edema Skin Exam: Positive: Nl turgor and temperature Neuro Exam: Positive: Normal Speech Psych Exam: Positive: Mood NL Assessment /Plan Problems (1) LLL pneumonia Status: Acute Response to Treatment: Stable Discussed With: Nurse, Patient Problem Specific Plan: Monitor Clinically, Repeat Labs Problem Text: D3 levo 750 IV 11/21 AF, improved cough, WBC 9.6 11/19 new onset cough c CXR patchy LLL infiltrate (2) Small bowel obstruction Status: Acute Response to Treatment: Stable Problem Specific Plan: Consult Specialist Problem Text: appreciate surgery input ondan q4 prn/meto 5 q8 prn/alvim 12 BID 11/21 NS 100 to 50H 11/20 advanced to clears 11/19 SBFT s SBO 11/17 increased HM 0.5 q4H to q3H, answered numerous questions re hospice 11/13 Surgery has been consulted. Patient currently NPO with NG tube until symptoms resolve 11/12/18 CT AP c closed loop SBO (3) Generalized abdominal pain Status: Acute Response to Treatment: Stable Problem Text: as per SBO (4) T2DM (type 2 diabetes mellitus) Status: Chronic Response to Treatment: Stable Problem Text: HD glar 70 qAM, NPH 35 SC lunch 810 BG mid 200s; therefore, + det 10 QHS to SSLI (5) Hypokalemia Status: Resolved Problem Text: continue K runs prn (6) Hypomagnesemia Onset Date: 02/24/2014 Status: Chronic Response to Treatment: Stable Problem Text: continue prn Mg run 11/20 1.5 x 2 runs (7) Physical deconditioning Status: Chronic Problem Text: 11/18 PT safe to dc home WMS 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?: Yes (Heparin) VS, I&O, 24H, Fishbone Vital Signs/I&O Vital Signs Date Time Temp Pulse Resp B/P (MAP) Pulse Ox O2 Delivery O2 Flow Rate FiO2 11/21/18 09:28 20 11/21/18 09:18 20.0 11/21/18 09:00 92 Room Air 11/21/18 08:00 97.6 87 135/63 (87) I&O- Last 24 Hours up to 6 AM 11/21/18 06:00 Intake Total 2980 ml Output Total 2800 ml Balance 180 ml Laboratory Data 24H LABS Laboratory Tests 2 11/20/18 17:36: Bedside Glucose (Misc Panel) 218H 11/20/18 23:51: Bedside Glucose (Misc Panel) 249H 11/21/18 05:08: Nucleated Red Blood Cells % (auto) 0.0, Anion Gap 9, Glomerular Filtration Rate > 60.0, Blood Urea Nitrogen 2#L, Creatinine 0.44L, Sodium Level 138, Potassium Level 3.7, Chloride Level 106, Carbon Dioxide Level 23, Calcium Level 9.0, Aspartate Amino Transf (AST/SGOT) 9, Alanine Aminotransferase (ALT/SGPT) 30, Alkaline Phosphatase 122H, Total Bilirubin 0.2, Total Protein 6.4, Albumin 2.4L, Magnesium Level 1.5L, Albumin/Globulin Ratio 0.60L 11/21/18 11:29: Bedside Glucose (Misc Panel) 294H CBC/BMP Laboratory Tests 11/21/18 05:08 Red Blood Count 3.10 L, Mean Corpuscular Volume 96.5 H, Mean Corpuscular Hemoglobin 31.6, Mean Corpuscular Hemoglobin Concent 32.8, Red Cell Distribution Width 14.3, Calcium Level 9.0, Aspartate Amino Transf (AST/SGOT) 9, Alanine Aminotransferase (ALT/SGPT) 30, Alkaline Phosphatase 122 H, Total Bilirubin 0.2, Total Protein 6.4, Albumin 2.4 L Kg Bass M.D. Nov 21, 2018 12:00
[2018-11-21] MEDS: MAG SULF 1GM/100ML (MAG RUN) 1 GM in IV 1 EA IV SCH ×2 (13:55→15:05)
[2018-11-21] MEDS: ONDANSETRON 4MG/2ML VIAL (J2405) IV PRN (15:05)
[2018-11-21] MEDS ORDERED: LEVEMIR (INSULIN DETEMIR) 1 UNITS/0.01ML SC SCH (21:00)
[2018-11-21] MEDS: LevoFLOXacin IV 750 MG in IV 1 EA IV SCH (23:27)
[2018-11-22] VITALS (23 sets, daily range): BP systolic 108–148; BP diastolic 52–82; O2SAT 89–99
[2018-11-22] MEDS: HumaLOG INSULIN (NovoLOG) PER UNIT SC SCH ×4 (00:43→17:05)
[2018-11-22] MEDS: LEVALBUTEROL 1.25 MG/0.5 ML CONCENTRATE NEB INH SCH ×4 (01:24→20:00)
[2018-11-22] MEDS: HYDROMORPHONE HCL 0.5 MG/ 0.5 ML SYRINGE (J1170 PER 1) IV PRN ×6 (02:27→20:36)
[2018-11-22 05:08] LABS: HEMATOCRIT 30.8 % (36.0-47.0); HEMOGLOBIN 9.8 g/dl (12.0-15.5); MEAN CORPUSCULAR HEMOGLOBIN 31.4 pg (27.0-33.0); MEAN CORPUSCULAR HGB CONC 31.8 g/dl (32.0-36.5); MEAN CORPUSCULAR VOLUME 98.7 fl (80.0-96.0); PLATELET COUNT, AUTOMATED 255 10^3/uL (150-450); RED BLOOD COUNT 3.12 10^6/uL (4.00-5.40); WHITE BLOOD COUNT 7.5 10^3/uL (4.0-10.0)
[2018-11-22 05:47] LABS: ALBUMIN 2.4 GM/DL (3.2-5.2); ALT/SGPT 26 U/L (12-78); BILIRUBIN,TOTAL 0.2 MG/DL (0.2-1.0); BLOOD UREA NITROGEN 2 MG/DL (7-18); CALCIUM LEVEL 8.9 MG/DL (8.5-10.1); CARBON DIOXIDE LEVEL 27 MEQ/L (21-32); CHLORIDE LEVEL 107 MEQ/L (98-107); CREATININE FOR GFR 0.42 MG/DL (0.55-1.30); GLOMERULAR FILTRATION RATE > 60.0 (>51); GLUCOSE, FASTING 187 MG/DL (70-100); MAGNESIUM LEVEL 1.7 MG/DL (1.8-2.4); POTASSIUM SERUM 3.8 MEQ/L (3.5-5.1); SODIUM LEVEL 140 MEQ/L (136-145); TOTAL PROTEIN 6.6 GM/DL (6.4-8.2)
[2018-11-22] MEDS: HEPARIN SOD (PORCINE) 5000 UNITS/ML VIAL SC SCH ×3 (05:49→20:34)
[2018-11-22] MEDS: SLF 3 ML SYR IV SCH ×3 (05:59→22:00)
[2018-11-22] MEDS: ADVAIR HFA 230/21MCG INHALER INH SCH ×2 (07:39→20:50)
[2018-11-22] MEDS: ALVIMOPAN 12 MG CAPSULE (ENTEREG) PO SCH ×2 (09:21→20:35)
[2018-11-22] MEDS: NS 1,000 ML IV SCH (09:24)
[2018-11-22] MEDS: AMITRIPTYLINE 50 MG TAB NG SCH ×2 (09:24→20:34)
--- NOTE | 2018-11-22 10:12 | REP ---
HISTORY: Followup. COMPARISON: 11/19/2018. The left lower lobe patchy opacity is unchanged. There is a subtle right lower lobe patchy opacity, however, the lung garcía are not as well expanded today as they were on the prior exam. The right-sided central venous catheter tip is unchanged remaining in the superior vena cava. There is cardiomegaly, status quo. There is no change in the osseous structures. IMPRESSION: Bibasilar opacities as described above. Electronically Signed by Jeff Benz DO 11/22/2018 10:22 A
--- NOTE | 2018-11-22 10:14 | IPNPDOC ---
Subjective Date Seen The patient was seen on 11/22/18. Subjective Chief Complaint/HPI slowly advancing diet-11/21 1390 po liquid Eyes: Denies: Pain ENT: Denies: Head Aches Skin: Denies: Rash Pulmonary: Denies: Dyspnea, Cough Cardiovascular: Denies: Chest Pain, Palpitations Gastrointestinal: Reports: Nausea; Denies: Vomiting Genitourinary: Denies: Dysuria Objective Physical Examination General Exam: Positive: Alert, Cooperative, No Acute Distress ENT Exam: Positive: Mucous membr. moist/pink Neck Exam: Positive: Supple Chest Exam: Positive: Rhonchi (LLL, slightly improves with cough), Diminished Heart Exam: Positive: Rate Normal Abdomen Exam: Positive: BS Hypoactive, Soft, Tenderness, Other (minimal ostomy output put then again, she has been NPO for days.) Extremity Exam: Negative: Edema Skin Exam: Positive: Nl turgor and temperature Neuro Exam: Positive: Normal Speech Psych Exam: Positive: Mood NL Assessment /Plan Problems (1) LLL pneumonia Status: Acute Response to Treatment: Stable Discussed With: Nurse, Patient Problem Specific Plan: Monitor Clinically, Repeat Labs Problem Text: D4 levo 750 IV 11/22 AF, improved cough, WBC 7.5 (9.6) 11/22 CXR c mild PVC and requiring 2L O2-SLIV 11/19 new onset cough c CXR patchy LLL infiltrate (2) Small bowel obstruction Status: Acute Response to Treatment: Stable Problem Specific Plan: Consult Specialist Problem Text: appreciate surgery input ondan q4 prn/meto 5 q8 prn/alvim 12 BID 11/22 SLIV 11/21 NS 100 to 50H 11/20 advanced to clears 11/19 SBFT s SBO 11/17 increased HM 0.5 q4H to q3H, answered numerous questions re hospice 11/13 Surgery has been consulted. Patient currently NPO with NG tube until symptoms resolve 11/12/18 CT AP c closed loop SBO (3) Generalized abdominal pain Status: Acute Response to Treatment: Stable Problem Text: as per SBO (4) T2DM (type 2 diabetes mellitus) Status: Chronic Response to Treatment: Stable Problem Text: HD glar 70 qAM, NPH 35 SC lunch 11/22 increased to 20 11/21 BG mid 200s; therefore, + det 10 QHS to SSLI (5) Hypokalemia Status: Resolved Problem Text: continue K runs prn 11/22 3.8 (6) Hypomagnesemia Onset Date: 02/24/2014 Status: Chronic Response to Treatment: Stable Problem Text: continue prn Mg run 11/22 1.7 11/21 1.5 x 2 runs (7) Physical deconditioning Status: Chronic Problem Text: 11/18 PT safe to dc home WMS 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?: Yes (Heparin) VS, I&O, 24H, Fishbone Vital Signs/I&O Vital Signs Date Time Temp Pulse Resp B/P (MAP) Pulse Ox O2 Delivery O2 Flow Rate FiO2 11/22/18 09:32 16 11/22/18 08:05 97.0 70 113/58 (76) 94 11/22/18 06:00 Nasal Cannula 3.0 I&O- Last 24 Hours up to 6 AM 11/22/18 06:00 Intake Total 3140 ml Output Total 2275 ml Balance 865 ml Laboratory Data 24H LABS Laboratory Tests 2 11/21/18 11:29: Bedside Glucose (Misc Panel) 294H 11/21/18 17:51: Bedside Glucose (Misc Panel) 253H 11/21/18 23:19: Bedside Glucose (Misc Panel) 207H 11/22/18 04:49: Nucleated Red Blood Cells % (auto) 0.0, Anion Gap 6L, Glomerular Filtration Rate > 60.0, Blood Urea Nitrogen 2L, Creatinine 0.42L, Sodium Level 140, Potassium Level 3.8, Chloride Level 107, Carbon Dioxide Level 27, Calcium Level 8.9, Aspartate Amino Transf (AST/SGOT) 17, Alanine Aminotransferase (ALT/SGPT) 26, Alkaline Phosphatase 142H, Total Bilirubin 0.2, Total Protein 6.6, Albumin 2.4L, Magnesium Level 1.7L, Albumin/Globulin Ratio 0.57L CBC/BMP Laboratory Tests 11/22/18 04:49 Red Blood Count 3.12 L, Mean Corpuscular Volume 98.7 H, Mean Corpuscular Hemoglobin 31.4, Mean Corpuscular Hemoglobin Concent 31.8 L, Red Cell Dis tribution Width 14.4, Calcium Level 8.9, Aspartate Amino Transf (AST/SGOT) 17, Alanine Aminotransferase (ALT/SGPT) 26, Alkaline Phosphatase 142 H, Total Bilirubin 0.2, Total Protein 6.6, Albumin 2.4 L Kg Bass M.D. Nov 22, 2018 10:14
[2018-11-22 10:40] LABS: NT-PRO BNP 115 PG/ML (<125)
[2018-11-22] MEDS: FAMOTIDINE IV BAG 20 MG in IV 1 EA IV SCH (12:21)
[2018-11-22] MEDS: guaiFENesin SYRUP 200 MG/10 ML UDC NG PRN (13:28)
--- NOTE | 2018-11-22 16:49 | IPNPDOC ---
Subjective General Date/Time Seen The patient was seen on 11/22/18 at 16:47. Subject Chief Complaint/History The patient is a 58-year-old female admitted with a reason for visit of SBO. patient with chronic problems with her bowels, now admitted for distention. Improved. Tolerating some clears though still complains of abdominal pain, occasional nausea. She has liquid output from her ostomy. Current Medications Current Medications Current Medications Medications (Trade) Dose Ordered Sig/Melody Route PRN Reason Start Time Stop Time Status Last Admin Dose Admin Albuterol Sulfate (Proventil Neb) 2.5 mg Q4HP PRN NEB SOB/WHEEZING 11/13/18 05:15 Alvimopan (Entereg) 12 mg BID PO 11/16/18 21:00 11/23/18 20:59 11/22/18 09:21 Amitriptyline HCl (Elavil) 50 mg QAM NG 11/20/18 09:00 11/22/18 09:24 Amitriptyline HCl (Elavil) 50 mg QAM PO 11/13/18 09:00 11/19/18 09:36 DC 11/19/18 09:15 Amitriptyline HCl (Elavil) 150 mg QHS NG 11/19/18 21:00 11/21/18 20:10 Amitriptyline HCl (Elavil) 150 mg QHS PO 11/12/18 21:00 11/19/18 09:36 DC 11/18/18 20:37 Dextrose (Dextrose 50%) 25 ml ASDIRECTED PRN IV SEE LABEL COMMENTS 11/12/18 23:15 11/16/18 19:33 DC 11/14/18 03:12 Dextrose (Dextrose 50%) 25 ml ASDIRECTED PRN IV SEE LABEL COMMENTS 11/16/18 19:30 11/17/18 07:40 DC Dextrose (Dextrose 50%) 25 ml ASDIRECTED PRN IV SEE LABEL COMMENTS 11/16/18 19:45 UNV Dextrose (Dextrose 50%) 25 ml ASDIRECTED PRN IV SEE LABEL COMMENTS 11/17/18 07:45 Dextrose/Sodium Chloride 1,000 ml @ 100 mls/hr Q10H IV 11/14/18 03:30 11/15/18 07:56 DC 11/15/18 00:13 Diatrizoate Meglum/ Diatrizoate Sod (Gastrografin) 10 ml Q30M PO 11/12/18 14:30 11/12/18 15:01 DC 11/12/18 14:56 Famotidine 20 mg/ IV Miscellaneous Supplies 50 ml @ 100 mls/hr Q12H IV 11/13/18 00:00 11/22/18 12:21 Glucagon (Glucagon) 1 mg ASDIRECTED PRN SC SEE LABEL COMMENTS 11/12/18 23:15 11/16/18 19:33 DC Glucagon (Glucagon) 1 mg ASDIRECTED PRN SC SEE LABEL COMMENTS 11/16/18 19:30 11/17/18 07:41 DC Glucagon (Glucagon) 1 mg ASDIRECTED PRN SC SEE LABEL COMMENTS 11/16/18 19:45 UNV Glucagon (Glucagon) 1 mg ASDIRECTED PRN SC SEE LABEL COMMENTS 11/17/18 07:45 Glucose (Glucose) 16 GM ASDIRECTED PRN NG SEE LABEL COMMENTS 11/19/18 09:45 Glucose (Glucose) 16 GM ASDIRECTED PRN PO SEE LABEL COMMENTS 11/12/18 23:15 11/16/18 19:33 DC Glucose (Glucose) 16 GM ASDIRECTED PRN PO SEE LABEL COMMENTS 11/16/18 19:30 11/17/18 07:41 DC Glucose (Glucose) 16 GM ASDIRECTED PRN PO SEE LABEL COMMENTS 11/16/18 19:45 UNV Glucose (Glucose) 16 GM ASDIRECTED PRN PO SEE LABEL COMMENTS 11/17/18 07:45 11/19/18 09:36 DC Guaifenesin (Mucinex Tab Er) 600 mg BID PO 11/19/18 21:00 Cancel Guaifenesin (Robitussin) 30 ml BID PRN NG COUGH 11/19/18 19:45 11/22/18 13:28 Heparin Sodium (Porcine) (Heparin) 5,000 units Q8H SC 11/13/18 06:00 11/22/18 12:22 Home Med (Med Rec Complete!) ASDIRECTED XX 11/12/18 22:00 11/12/18 22:00 DC Hydromorphone HCl (Dilaudid) 0.5 mg Q3HP PRN IV MODERATE/SEVERE PAIN (PS 5-10) 11/17/18 16:45 11/22/18 13:29 Hydromorphone HCl (Dilaudid) 0.5 mg Q4HP PRN IV MODERATE/SEVERE PAIN (PS 5-10) 11/16/18 07:30 11/17/18 16:35 DC 11/17/18 14:01 Hydromorphone HCl (Dilaudid) 1 mg Q3HP PRN IV MILD PAIN (PS 1-4) 11/12/18 21:15 11/16/18 07:30 DC 11/16/18 05:47 Hydromorphone HCl (Dilaudid) 1.6 mg Q3HP PRN IV MODERATE/SEVERE PAIN (PS 5-10) 11/12/18 21:15 11/13/18 10:38 DC 11/13/18 08:47 Insulin Detemir (Levemir Insulin) 10 units QHS SC 11/21/18 21:00 11/22/18 10:13 DC 11/21/18 23:21 Insulin Detemir (Levemir Insulin) 20 units QHS SC 11/22/18 21:00 Insulin Human Lispro (HumaLOG INSULIN) SEE PROTOCOL TABLE Q6H SC 11/17/18 06:00 11/22/18 12:21 Levalbuterol HCl (Xopenex Neb) 1.25 mg RQ6H INH 11/19/18 08:00 11/22/18 13:11 Levofloxacin 750 mg/IV Miscellaneous Supplies 150 ml @ 100 mls/hr Q24H IV 11/19/18 23:00 11/21/18 23:27 Magnesium Sulfate/ Dextrose 1 gm/IV Miscellaneous Supplies 100 ml @ 100 mls/hr Q1H IV 11/21/18 13:00 11/21/18 14:59 DC 11/21/18 15:05 Magnesium Sulfate/ Dextrose 1 gm/IV Miscellaneous Supplies 100 ml @ 100 mls/hr Q1H IV 11/19/18 08:00 11/19/18 09:59 DC 11/19/18 14:10 Metoclopramide HCl (Reglan) 5 mg Q8HP PRN NG NAUSEA OR VOMITING 11/19/18 09:45 Metoclopramide HCl (Reglan) 5 mg Q8HP PRN PO NAUSEA OR VOMITING 11/13/18 10:45 11/19/18 09:36 DC Ondansetron HCl (ZOFRAN INJection) 4 mg Q6HP PRN IV NAUSEA OR VOMITING 11/12/18 22:30 11/21/18 15:05 Potassium Chloride 10 meq/ IV Miscellaneous Supplies 100 ml @ 100 mls/hr ASDIRECTED IV 11/15/18 08:00 11/15/18 08:00 DC Potassium Chloride 10 meq/ IV Miscellaneous Supplies 100 ml @ 100 mls/hr Q1H IV 11/15/18 17:00 11/15/18 18:59 DC 11/15/18 17:38 Potassium Chloride/Dextrose/ Sod Cl 1,000 ml @ 100 mls/hr Q10H IV 11/15/18 08:00 11/17/18 08:15 DC 11/16/18 21:07 Salmeterol Xinafoate/ Fluticasone (Advair Hfa 230/ ) 2 puff RBID INH 11/13/18 08:00 11/22/18 07:39 Sodium Chloride 1,000 ml @ 50 mls/hr Q20H IV 11/17/18 08:15 11/22/18 10:13 DC 11/22/18 09:24 Sodium Chloride 1,000 ml @ 100 mls/hr Q10H IV 11/12/18 21:00 11/14/18 03:30 DC 11/13/18 16:58 Sodium Chloride (Saline Lock Flush) 2 ml ASDIRECTED PRN IV SEE LABEL COMMENTS 11/12/18 23:15 Sodium Chloride (Saline Lock Flush) 2 ml SLF IV 11/13/18 06:00 11/22/18 12:23 Allergies Coded Allergies: latex (Verified Allergy, Severe, throat closes, 07/16/18) Penicillins (Verified Allergy, Intermediate, hives, 07/16/18) Sulfa (Sulfonamide Antibiotics) (Verified Allergy, Intermediate, hives, 07/16/18) adhesive tape (Verified Allergy, Intermediate, paper tape - blisters, hives, 07/16/18) azithromycin (Verified Allergy, Intermediate, hives, 07/16/18) ciprofloxacin (Verified Allergy, Intermediate, hives, 07/16/18) gatifloxacin (Verified Allergy, Intermediate, hives, 07/16/18) lorazepam (Verified Allergy, Intermediate, hallucinations, alters mind, 07/16/18) nitrofurantoin (Verified Allergy, Intermediate, hives, 07/16/18) oxycodone (Verified Allergy, Intermediate, hives, 07/16/18) strawberry (Verified Allergy, Intermediate, hives, 07/16/18) tomato (Verified Allergy, Intermediate, hives, 07/16/18) Contrast Media (Verified Allergy, Unknown, throat swelling, 09/14/18) Grape (Verified Allergy, Unknown, GRAPE JUICE, 03/22/17) chlorpromazine (Verified Allergy, Unknown, 07/16/18) colchicine (Verified Allergy, Unknown, 07/16/18) fluphenazine (Verified Allergy, Unknown, 07/16/18) gabapentin (Verified Allergy, Unknown, 07/16/18) grape (Verified Allergy, Unknown, 07/16/18) ipratropium (Verified Allergy, Unknown, 07/16/18) mesoridazine (Verified Allergy, Unknown, 07/16/18) perphenazine (Verified Allergy, Unknown, 07/16/18) prochlorperazine (Verified Allergy, Unknown, 07/16/18) tramadol (Verified Allergy, Unknown, 07/16/18) trifluoperazine (Verified Allergy, Unknown, 07/16/18) iodine (Verified Adverse Reaction, Severe, seizures, 07/16/18) morphine (Verified Adverse Reaction, Severe, severe headache with large doses, 07/16/18) theophylline (Verified Adverse Reaction, Severe, seizures, 07/16/18) codeine (Verified Adverse Reaction, Intermediate, "out of body", 07/16/18) droperidol (Verified Adverse Reaction, Intermediate, "out of body", eyes roll back in head, 07/16/18) hydrocodone (Verified Adverse Reaction, Intermediate, confusion (Vicodin), 07/16/18) lidocaine (Verified Adverse Reaction, Intermediate, increases HR when applied to upper body, 07/16/18) meperidine (Verified Adverse Reaction, Intermediate, "out of body", shaky, 07/16/18) pregabalin (Verified Adverse Reaction, Intermediate, anxiety, shaking, 07/16/18) promethazine (Verified Adverse Reaction, Intermediate, "out of body" - phenothiazines, 07/16/18) propoxyphene (Verified Adverse Reaction, Intermediate, "out of body", 07/16/18) albuterol (Verified Adverse Reaction, Mild, shaky, 07/16/18) aspirin (Verified Adverse Reaction, Mild, ulcers - full strength only, 07/16/18) baclofen (Verified Adverse Reaction, Mild, shaking, 07/16/18) fentanyl (Verified Adverse Reaction, Mild, nervous, 07/16/18) midazolam (Verified Adverse Reaction, Mild, nervous, 07/16/18) red dye (Verified Adverse Reaction, Mild, not a true allergy, please see comments, 07/16/18) Patient states that she becomes anxious if the contents of her ostomy are red, so she tries to avoid. tiagabine (Verified Adverse Reaction, Mild, nervous, 07/16/18) Objective Physical Examination Examination GENERAL APPEARANCE:mildly uncomfortable. SKIN: warm and dry. HEENT: Normocephalic, atraumatic. [place] palpebral conjunctiva, anicteric sclerae. Lips and mucosa appear moist. NECK: Supple, no thyromegaly. No obvious jugular venous distention. LUNGS: Clear to auscultation bilaterally. No wheezing appreciated. HEART: No chest wall abnormalities. Regular rate and rhythm with no murmurs appreciated. ABDOMEN: Abdomen is moderately distended, tympanitic, most prominent on upper abdomen, soft, ostomy viable with thin liquid output, some air. Mild tenderness on palpation around midline. EXTREMITIES: Extremities have no deformities. No edema identified. Vital Signs Vital Signs Date Time Temp Pulse Resp B/P (MAP) Pulse Ox O2 Delivery O2 Flow Rate FiO2 11/22/18 13:39 16 11/22/18 12:00 97.2 85 124/59 (80) 97 11/22/18 12:00 Nasal Cannula 3.0 I&Os I&O- Last 24 Hours up to 6 AM 11/22/18 06:00 Intake Total 3140 ml Output Total 2275 ml Balance 865 ml Laboratory Data Labs 24H Laboratory Tests 2 11/21/18 17:51: Bedside Glucose (Misc Panel) 253H 11/21/18 23:19: Bedside Glucose (Misc Panel) 207H 11/22/18 04:49: Nucleated Red Blood Cells % (auto) 0.0, Anion Gap 6L, Glomerular Filtration Rate > 60.0, Blood Urea Nitrogen 2L, Creatinine 0.42L, Sodium Level 140, Potassium Level 3.8, Chloride Level 107, Carbon Dioxide Level 27, Calcium Level 8.9, Aspartate Amino Transf (AST/SGOT) 17, Alanine Aminotransferase (ALT/SGPT) 26, Alkaline Phosphatase 142H, Total Bilirubin 0.2, Total Protein 6.6, Albumin 2.4L, Magnesium Level 1.7L, RK-Fnc-O-Type Natriuretic Peptide 115, Albumin/Globulin Ratio 0.57L 11/22/18 11:36: Bedside Glucose (Misc Panel) 210H CBC/BMP Laboratory Tests 11/22/18 04:49 Red Blood Count 3.12 L, Mean Corpuscular Volume 98.7 H, Mean Corpuscular Hemoglobin 31.4, Mean Corpuscular Hemoglobin Concent 31.8 L, Red Cell Distribution Width 14.4, Calcium Level 8.9, Aspartate Amino Transf (AST/SGOT) 17, Alanine Aminotransferase (ALT/SGPT) 26, Alkaline Phosphatase 142 H, Total Bilirubin 0.2, Total Protein 6.6, Albumin 2.4 L Impression sbo vs ileus chronic abdominal pain abdominal wall hernia will add some ensure clears for nutrition still distended and tympanitic but tolerating clears and having ostomy output. Plan / VTE VTE Prophylaxis Ordered?: Yes (Heparin) ANA CRISTINA CAVAZOS MD Nov 22, 2018 16:49
[2018-11-22] MEDS: LEVEMIR (INSULIN DETEMIR) 1 UNITS/0.01ML SC SCH (20:35)
[2018-11-23] VITALS (22 sets, daily range): BP systolic 102–144; BP diastolic 52–70; O2SAT 88–100
[2018-11-23] MEDS: guaiFENesin SYRUP 200 MG/10 ML UDC NG PRN (00:02)
[2018-11-23] MEDS: HumaLOG INSULIN (NovoLOG) PER UNIT SC SCH ×5 (00:02→22:35)
[2018-11-23] MEDS: LevoFLOXacin IV 750 MG in IV 1 EA IV SCH (00:03)
[2018-11-23] MEDS: FAMOTIDINE IV BAG 20 MG in IV 1 EA IV SCH ×3 (00:03→22:35)
[2018-11-23] MEDS: HYDROMORPHONE HCL 0.5 MG/ 0.5 ML SYRINGE (J1170 PER 1) IV PRN ×8 (00:03→23:06)
[2018-11-23] MEDS: LEVALBUTEROL 1.25 MG/0.5 ML CONCENTRATE NEB INH SCH ×4 (01:19→20:00)
[2018-11-23] MEDS: HEPARIN SOD (PORCINE) 5000 UNITS/ML VIAL SC SCH ×3 (05:40→21:19)
[2018-11-23] MEDS: SLF 3 ML SYR IV SCH ×3 (05:40→21:20)
[2018-11-23 06:13] LABS: BASO % 0.3 % (0.0-1.0); EOS # 0.1 10^3/uL (0.0-0.50); EOS % 1.2 % (0.0-3.0); HEMATOCRIT 29.9 % (36.0-47.0); HEMOGLOBIN 9.6 g/dl (12.0-15.5); LYMPH # 0.8 10^3/uL (1.5-4.5); MEAN CORPUSCULAR HEMOGLOBIN 30.9 pg (27.0-33.0); MEAN CORPUSCULAR HGB CONC 32.1 g/dl (32.0-36.5); MEAN CORPUSCULAR VOLUME 96.1 fl (80.0-96.0); MONO # 0.6 10^3/uL (0.0-0.8); MONO % 10.7 % (0.0-5.0); NEUTROPHILS # 4.3 10^3/uL (1.8-7.7); NEUTROPHILS % 73.5 % (36.0-66.0); PLATELET COUNT, AUTOMATED 278 10^3/uL (150-450); RED BLOOD COUNT 3.11 10^6/uL (4.00-5.40); WHITE BLOOD COUNT 5.8 10^3/uL (4.0-10.0)
[2018-11-23 06:32] LABS: ALBUMIN 2.2 GM/DL (3.2-5.2); ALT/SGPT 23 U/L (12-78); BILIRUBIN,TOTAL 0.2 MG/DL (0.2-1.0); BLOOD UREA NITROGEN 2 MG/DL (7-18); CALCIUM LEVEL 9.5 MG/DL (8.5-10.1); CARBON DIOXIDE LEVEL 26 MEQ/L (21-32); CHLORIDE LEVEL 106 MEQ/L (98-107); CREATININE FOR GFR 0.43 MG/DL (0.55-1.30); GLOMERULAR FILTRATION RATE > 60.0 (>51); GLUCOSE, FASTING 144 MG/DL (70-100); MAGNESIUM LEVEL 1.8 MG/DL (1.8-2.4); NT-PRO BNP 202 PG/ML (<125); POTASSIUM SERUM 3.3 MEQ/L (3.5-5.1); SODIUM LEVEL 140 MEQ/L (136-145); TOTAL PROTEIN 7.2 GM/DL (6.4-8.2)
[2018-11-23] MEDS: ADVAIR HFA 230/21MCG INHALER INH SCH ×2 (09:06→21:56)
[2018-11-23] MEDS: ALVIMOPAN 12 MG CAPSULE (ENTEREG) PO SCH (09:28)
[2018-11-23] MEDS: ONDANSETRON 4MG/2ML VIAL (J2405) IV PRN (09:29)
[2018-11-23] MEDS: AMITRIPTYLINE 50 MG TAB NG SCH (09:29)
--- NOTE | 2018-11-23 09:36 | IPNPDOC ---
Subjective Date Seen The patient was seen on 11/23/18. Subjective Chief Complaint/HPI Pt this morning states that she feels a little better today than she has. She denies SOB, cough is improving. She had some sputum production over the weekend. Cont to have abd pain, worse than usual, but is tolerating a clear liquid diet without nausea or vomiting. General: Reports: Fatigue Constitutional: Denies: Chills, Fever Pulmonary: Reports: Cough; Denies: Dyspnea Cardiovascular: Denies: Chest Pain, Palpitations Gastrointestinal: Reports: Abdominal Pain; Denies: Nausea, Vomiting Musculoskeletal: Reports: Joint Pain Neurological: Reports: Weakness Psych: Reports: Mood Normal Objective Physical Examination General Exam: Positive: Alert, Cooperative, No Acute Distress ENT Exam: Positive: Mucous membr. moist/pink Neck Exam: Positive: Supple Chest Exam: Positive: Rhonchi (LLL, improves with cough), Diminished Heart Exam: Positive: Rate Normal Abdomen Exam: Positive: BS Hypoactive, Soft, Tenderness Extremity Exam: Positive: Tenderness, Swelling (left knee also warm to touch, effusion present); Negative: Edema Skin Exam: Positive: Nl turgor and temperature Neuro Exam: Positive: Normal Speech Psych Exam: Positive: Mood NL Assessment /Plan Problems (1) LLL pneumonia Status: Acute Response to Treatment: Stable Discussed With: Nurse, Patient Problem Specific Plan: Monitor Clinically, Repeat Labs Problem Text: 11/23 Resp status cont to improved, with afebile, without leukocytosis. D5 levo 750 IV 11/22 AF, improved cough, WBC 7.5 (9.6) 11/22 CXR c mild PVC and requiring 2L O2-SLIV 11/19 new onset cough c CXR patchy LLL infiltrate (2) Small bowel obstruction Status: Acute Response to Treatment: Stable Problem Specific Plan: Consult Specialist Problem Text: appreciate surgery input ondan q4 prn/meto 5 q8 prn/alvim 12 BID 11/22 SLIV 11/21 NS 100 to 50H 11/20 advanced to clears 11/19 SBFT s SBO 11/17 increased HM 0.5 q4H to q3H, answered numerous questions re hospice 11/13 Surgery has been consulted. Patient currently NPO with NG tube until symptoms resolve 11/12/18 CT AP c closed loop SBO (3) Generalized abdominal pain Status: Acute Response to Treatment: Stable Problem Text: as per SBO (4) T2DM (type 2 diabetes mellitus) Status: Chronic Response to Treatment: Stable Problem Text: HD glar 70 qAM, NPH 35 SC lunch 11/22 increased to 20 11/21 BG mid 200s; therefore, + det 10 QHS to SSLI (5) Hypokalemia Status: Resolved Problem Text: 11/23 K+ 3.3, K Run x 2 ordered. continue K runs prn 11/22 3.8 (6) Hypomagnesemia Onset Date: 02/24/2014 Status: Chronic Response to Treatment: Stable Problem Text: continue prn Mg run 11/22 1.7 11/21 1.5 x 2 runs (7) Physical deconditioning Status: Chronic Problem Text: 11/18 PT safe to dc home WMS (8) Left knee pain Status: Acute Problem Text: denies injury but left knee swollen and painful. she has hx of previous surgery on knee cartilage, Dr. Preston, many years ago, bilaterally. Knee if warm, swollen deep to quadriceps tendon. 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?: Yes (Heparin) VS, I&O, 24H, Fishbone Vital Signs/I&O Vital Signs Date Time Temp Pulse Resp B/P (MAP) Pulse Ox O2 Delivery O2 Flow Rate FiO2 11/23/18 08:00 97.0 74 20 107/58 (74) 94 2.0 11/23/18 06:00 Nasal Cannula I&O- Last 24 Hours up to 6 AM 11/23/18 06:00 Intake Total 1040 ml Output Total 2375 ml Balance -1335 ml Laboratory Data 24H LABS Laboratory Tests 2 11/22/18 11:36: Bedside Glucose (Misc Panel) 210H 11/22/18 17:01: Bedside Glucose (Misc Panel) 179H 11/22/18 23:57: Bedside Glucose (Misc Panel) 192H 11/23/18 05:30: Immature Granulocyte % (Auto) 0.3, White Blood Count 5.8, Red Blood Count 3.11L, Hemoglobin 9.6L, Hematocrit 29.9L, Mean Corpuscular Volume 96.1H, Mean Corpuscular Hemoglobin 30.9, Mean Corpuscular Hemoglobin Concent 32.1, Red Cell Distribution Width 14.3, Platelet Count 278, Neutrophils (%) (Auto) 73.5H, Lymphocytes (%) (Auto) 14.0L, Monocytes (%) (Auto) 10.7H, Eosinophils (%) (Auto) 1.2, Basophils (%) (Auto) 0.3, Neutrophils # (Auto) 4.3, Lymphocytes # (Auto) 0.8L, Monocytes # (Auto) 0.6, Eosinophils # (Auto) 0.1, Basophils # (Auto) 0.0, Nucleated Red Blood Cells % (auto) 0.0, Anion Gap 8, Glomerular Filtration Rate > 60.0, Blood Urea Nitrogen 2L, Creatinine 0.43L, Sodium Level 140, Potassium Level 3.3L, Chloride Level 106, Carbon Dioxide Level 26, Calcium Level 9.5, Aspartate Amino Transf (AST/SGOT) 10, Alanine Aminotransferase (ALT/SGPT) 23, Alkaline Phosphatase 139H, Total Bilirubin 0.2, Total Protein 7.2, Albumin 2.2L, Magnesium Level 1.8, CQ-How-S-Type Natriuretic Peptide 202H, Albumin/Globulin R atio 0.44L CBC/BMP Laboratory Tests 11/23/18 05:30 Red Blood Count 3.11 L, Mean Corpuscular Volume 96.1 H, Mean Corpuscular Hemoglobin 30.9, Mean Corpuscular Hemoglobin Concent 32.1, Red Cell Distribution Width 14.3, Neutrophils (%) (Auto) 73.5 H, Lymphocytes (%) (Auto) 14.0 L, Monocytes (%) (Auto) 10.7 H, Eosinophils (%) (Auto) 1.2, Basophils (%) (Auto) 0.3, Neutrophils # (Auto) 4.3, Lymphocytes # (Auto) 0.8 L, Monocytes # (Auto) 0.6, Eosinophils # (Auto) 0.1, Basophils # (Auto) 0.0, Calcium Level 9.5, Aspartate Amino Transf (AST/SGOT) 10, Alanine Aminotransferase (ALT/SGPT) 23, Alkaline Phosphatase 139 H, Total Bilirubin 0.2, Total Protein 7.2, Albumin 2.2 L ARELY MARC PA-C Nov 23, 2018 09:36 Yosi Jiménez MD Nov 23, 2018 12:10
[2018-11-23] MEDS: KCL 10MEQ/100ML SWI (KRUN) 10 MEQ in IV 1 EA IV SCH ×2 (09:55→11:06)
[2018-11-23] MEDS ORDERED: METOCLOPRAMIDE 5 MG TAB PO PRN (12:00)
[2018-11-23] MEDS ORDERED: GLUCOSE 4 GM CHEW TABLET PO PRN (12:00)
--- NOTE | 2018-11-23 14:25 | REP ---
REASON: Pain and swelling. COMPARISON: None. AP and cross-table lateral views show calcifications in both medial and lateral compartments consistent with calcified meniscal degenerative changes or calcium pyrophosphate deposition disorder. Distinction is made on a clinical basis. There is no acute fracture. There is fullness in the suprapatellar soft tissues possibly secondary to an effusion. This too, should be correlated clinically. Two views show no evidence of a fracture. IMPRESSION: 1. Chronic changes as described above. 2. Possible suprapatellar effusion. Correlate clinically and if necessary, obtain an MRI. Electronically Signed by Jeff Benz DO 11/23/2018 04:47 P
[2018-11-23] MEDS: LevoFLOXacin 750 MG TABLET PO SCH (15:31)
[2018-11-23] MEDS: guaiFENesin SYRUP 200 MG/10 ML UDC PO PRN ×2 (15:32→22:35)
[2018-11-23] MEDS: LEVEMIR (INSULIN DETEMIR) 1 UNITS/0.01ML SC SCH (21:18)
[2018-11-23] MEDS: AMITRIPTYLINE 50 MG TAB PO SCH (21:19)
[2018-11-24] MEDS: LEVALBUTEROL 1.25 MG/0.5 ML CONCENTRATE NEB INH SCH ×4 (02:00→20:00)
[2018-11-24] MEDS: HYDROMORPHONE HCL 0.5 MG/ 0.5 ML SYRINGE (J1170 PER 1) IV PRN ×7 (03:00→23:56)
[2018-11-24] MEDS: LevoFLOXacin 750 MG TABLET PO SCH (05:31)
[2018-11-24] MEDS: HEPARIN SOD (PORCINE) 5000 UNITS/ML VIAL SC SCH ×3 (05:32→21:00)
[2018-11-24 06:00] VITALS: BP 144/63
[2018-11-24] MEDS: SLF 3 ML SYR IV SCH ×3 (06:03→22:05)
[2018-11-24 06:08] LABS: BASO % 0.4 % (0.0-1.0); EOS # 0.1 10^3/uL (0.0-0.50); EOS % 0.9 % (0.0-3.0); HEMATOCRIT 29.5 % (36.0-47.0); HEMOGLOBIN 9.6 g/dl (12.0-15.5); LYMPH % 17.2 % (24.0-44.0); MEAN CORPUSCULAR HGB CONC 32.5 g/dl (32.0-36.5); MEAN CORPUSCULAR VOLUME 95.2 fl (80.0-96.0); MONO # 0.6 10^3/uL (0.0-0.8); MONO % 10.6 % (0.0-5.0); NEUTROPHILS % 70.5 % (36.0-66.0); PLATELET COUNT, AUTOMATED 272 10^3/uL (150-450); WHITE BLOOD COUNT 5.6 10^3/uL (4.0-10.0)
[2018-11-24 06:29] LABS: ALBUMIN 2.2 GM/DL (3.2-5.2); ALT/SGPT 20 U/L (12-78); BILIRUBIN,TOTAL 0.2 MG/DL (0.2-1.0); BLOOD UREA NITROGEN 6 MG/DL (7-18); CALCIUM LEVEL 9.5 MG/DL (8.5-10.1); CARBON DIOXIDE LEVEL 26 MEQ/L (21-32); CHLORIDE LEVEL 104 MEQ/L (98-107); CREATININE FOR GFR 0.61 MG/DL (0.55-1.30); GLOMERULAR FILTRATION RATE > 60.0 (>51); GLUCOSE, FASTING 248 MG/DL (70-100); MAGNESIUM LEVEL 1.6 MG/DL (1.8-2.4); POTASSIUM SERUM 3.3 MEQ/L (3.5-5.1); RHEUMATOID FACTOR QUANT < 10.0 IU/ML (<15.0); SODIUM LEVEL 137 MEQ/L (136-145); TOTAL PROTEIN 7.2 GM/DL (6.4-8.2); URIC ACID 4.2 MG/DL (2.6-6.0)
[2018-11-24] MEDS: ADVAIR HFA 230/21MCG INHALER INH SCH ×2 (08:13→20:00)
[2018-11-24] MEDS ORDERED: MAG SULF 1GM/100ML (MAG RUN) 1 GM in IV 1 EA IV ONE (09:00)
--- NOTE | 2018-11-24 09:00 | IPNPDOC ---
Subjective Date Seen The patient was seen on 11/24/18. Subjective Chief Complaint/HPI Pt this morning c/o persistent abd pain, mostly LLQ, she does cont to tolerated her clear liquid diet. General: Denies: Fatigue Constitutional: Denies: Chills, Fever Skin: Denies: Rash Pulmonary: Reports: Cough (improving); Denies: Dyspnea Cardiovascular: Denies: Chest Pain, Palpitations Gastrointestinal: Denies: Nausea, Vomiting, Diarrhea Musculoskeletal: Reports: Other Symptoms (L knee pain x 2-3 days) Neurological: Reports: Weakness Psych: Reports: Mood Normal Objective Physical Examination General Exam: Positive: Alert, Cooperative, No Acute Distress ENT Exam: Positive: Mucous membr. moist/pink Neck Exam: Positive: Supple Chest Exam: Positive: Diminished; Negative: Clear to auscultation, Normal air movement, Rhonchi Heart Exam: Positive: Rate Normal Abdomen Exam: Positive: BS Hypoactive, Soft, Tenderness (LLQ, + stool in ostomy) Extremity Exam: Positive: Tenderness, Swelling (left knee also warm to touch, effusion present, no erythema); Negative: Edema Skin Exam: Positive: Nl turgor and temperature Neuro Exam: Positive: Normal Speech Psych Exam: Positive: Mood NL Assessment /Plan Problems (1) Left knee pain Status: Acute Problem Text: 11/24 L knee remains swollen, XR confirms effusion,and calcifications near cartilage which could represent pseudogout. MRI recommended, however pt with battery placement unable to have MRI, will obtain CT, consider Ortho consult. Repeat CRP. Currently on IV Levaquin for PN. Start Flector patch since gel form of diclofenac not available. 11/23 denies injury but left knee swollen and painful. she has hx of previous surgery on knee cartilage, Dr. Preston, many years ago, bilaterally. Knee if warm, swollen deep to quadriceps tendon. (2) LLL pneumonia Status: Acute Response to Treatment: Stable Discussed With: Nurse, Patient Problem Specific Plan: Monitor Clinically, Repeat Labs Problem Text: 11/24 Res status cont to improve, afebrile, WBC 5.6. 11/23 Resp status cont to improved, with afebile, without leukocytosis. D5 levo 750 IV 11/22 AF, improved cough, WBC 7.5 (9.6) 11/22 CXR c mild PVC and requiring 2L O2-SLIV 11/19 new onset cough c CXR patchy LLL infiltrate (3) Small bowel obstruction Status: Acute Response to Treatment: Stable Problem Specific Plan: Consult Specialist Problem Text: appreciate surgery input ondan q4 prn/meto 5 q8 prn/alvim 12 BID 11/22 SLIV 11/21 NS 100 to 50H 11/20 advanced to clears 11/19 SBFT s SBO 11/17 increased HM 0.5 q4H to q3H, answered numerous questions re hospice 11/13 Surgery has been consulted. Patient currently NPO with NG tube until symptoms resolve 11/12/18 CT AP c closed loop SBO (4) Generalized abdominal pain Status: Acute Response to Treatment: Stable Problem Text: as per SBO (5) T2DM (type 2 diabetes mellitus) Status: Chronic Response to Treatment: Stable Problem Text: HD glar 70 qAM, NPH 35 SC lunch 11/22 increased to 20 11/21 BG mid 200s; therefore, + det 10 QHS to SSLI (6) Hypokalemia Status: Resolved Problem Text: 11/24 repeat K Runs today 11/23 K+ 3.3, K Run x 2 ordered. continue K runs prn 11/22 3.8 (7) Hypomagnesemia Onset Date: 02/24/2014 Status: Chronic Response to Treatment: Stable Problem Text: continue prn Mg run 11/22 1.7 11/21 1.5 x 2 runs (8) Physical deconditioning Status: Chronic Problem Text: 11/24 will need f/u PT given L knee effusion/pain. 11/18 PT safe to dc home WMS 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?: Yes (Heparin) [facility]O Vital Signs Date Time Temp Pulse Resp B/P (MAP) Pulse Ox O2 Delivery O2 Flow Rate FiO2 11/24/18 06:23 15 11/24/18 06:00 99.4 77 144/63 (90) 91 11/23/18 22:00 Room Air 11/23/18 20:00 2.0 I&O- Last 24 Hours up to 6 AM 11/24/18 06:00 Intake Total 1188 ml Output Total 2230 ml Balance -1042 ml Laboratory Data 24H LABS Laboratory Tests 2 11/23/18 11:39: Bedside Glucose (Misc Panel) 332H 11/23/18 17:28: Bedside Glucose (Misc Panel) 227H 11/23/18 21:39: Bedside Glucose (Misc Panel) 282H 11/24/18 05:50: Immature Granulocyte % (Auto) 0.4, White Blood Count 5.6, Red Blood Count 3.10L, Hemoglobin 9.6L, Hematocrit 29.5L, Mean Corpuscular Volume 95.2, Mean Corpuscular Hemoglobin 31.0, Mean Corpuscular Hemoglobin Concent 32.5, Red Cell Distribution Width 14.3, Platelet Count 272, Neutrophils (%) (Auto) 70.5H, Lymphocytes (%) (Auto) 17.2L, Monocytes (%) (Auto) 10.6H, Eosinophils (%) (Auto) 0.9, Basophils (%) (Auto) 0.4, Neutrophils # (Auto) 4.0, Lymphocytes # (Auto) 1.0L, Monocytes # (Auto) 0.6, Eosinophils # (Auto) 0.1, Basophils # (Auto) 0.0, Nucleated Red Blood Cells % (auto) 0.0, Anion Gap 7L, Glomerular Filtration Rate > 60.0, Blood Urea Nitrogen 6#L, Creatinine 0.61, Sodium Level 137, Potassium Level 3.3L, Chloride Level 104, Carbon Dioxide Level 26, Calcium Level 9.5, Aspartate Amino Transf (AST/SGOT) 9, Alanine Aminotransferase (ALT/SGPT) 20, Alkaline Phosphatase 139H, Total Bilirubin 0.2, Uric Acid 4.2, Total Protein 7.2, Albumin 2.2L, Magnesium Level 1.6L, C-Reactive Protein, Quantitative 11.70H, Albumin/Globulin Ratio 0.44L, Rheumatoid Factor < 10.0 CBC/BMP Laboratory Tests 11/24/18 05:50 Red Blood Count 3.10 L, Mean Corpuscular Volume 95.2, Mean Corpuscular Hemoglobin 31.0, Mean Corpuscular Hemoglobin Concent 32.5, Red Cell Distribution Width 14.3, Neutrophils (%) (Auto) 70.5 H, Lymphocytes (%) (Auto) 17.2 L, Monocytes (%) (Auto) 10.6 H, Eosinophils (%) (Auto) 0.9, Basophils (%) (Auto) 0.4, Neutrophils # (Auto) 4.0, Lymphocytes # (Auto) 1.0 L, Monocytes # (Auto) 0.6, Eosinophils # (Auto) 0.1, Basophils # (Auto) 0.0, Calcium Level 9.5, Aspartate Amino Transf (AST/SGOT) 9, Alanine Aminotransferase (ALT/SGPT) 20, Alkaline Phosphatase 139 H, Total Bilirubin 0.2, Uric Acid 4.2, Total Protein 7.2, Albumin 2.2 L ARELY MARC PA-C Nov 24, 2018 09:00 Yosi Jiménez MD Nov 24, 2018 13:01
[2018-11-24] MEDS: AMITRIPTYLINE 50 MG TAB PO SCH ×2 (09:34→21:02)
[2018-11-24] MEDS: HumaLOG INSULIN (NovoLOG) PER UNIT SC SCH ×4 (09:35→21:02)
[2018-11-24] MEDS: KCL 10MEQ/100ML SWI (KRUN) 10 MEQ in IV 1 EA IV SCH ×2 (11:18→16:21)
[2018-11-24] MEDS: guaiFENesin SYRUP 200 MG/10 ML UDC PO PRN ×2 (12:42→23:55)
[2018-11-24] MEDS: FAMOTIDINE IV BAG 20 MG in IV 1 EA IV SCH ×2 (13:04→23:56)
[2018-11-24] MEDS ORDERED: BUPIVACAINE HCL 0.5% 10 ML VIAL As Ordered ONE (14:25)
[2018-11-24] MEDS ORDERED: LIDOCAINE 2% MDV 20 ML VIAL As Ordered ONE (14:25)
[2018-11-24] MEDS ORDERED: ceFAZolin 1GM INJ (J0690 PER 500MG) As Ordered ONE (14:27)
[2018-11-24] MEDS ORDERED: ISOVUE-300 61% 50ML VIAL (Q9967) As Ordered ONE (14:57)
[2018-11-24] MEDS ORDERED: KCL 10MEQ/100ML SWI (KRUN) 10 MEQ in IV 1 EA IV ONE (16:00)
[2018-11-24] MEDS: DICLOFENAC EPOLAMINE 1.3 % PATCH TOP SCH ×2 (16:24→21:01)
[2018-11-24] MEDS: SODIUM CHLORIDE 0.9% INJ 10 ML SYR IV PRN (18:31)
[2018-11-24] MEDS: LEVEMIR (INSULIN DETEMIR) 1 UNITS/0.01ML SC SCH (21:01)
[2018-11-24 22:00] VITALS: BP 146/77
[2018-11-24] MEDS: ONDANSETRON 4MG/2ML VIAL (J2405) IV PRN (22:05)
[2018-11-25] MEDS: HYDROMORPHONE HCL 0.5 MG/ 0.5 ML SYRINGE (J1170 PER 1) IV PRN ×6 (04:00→23:01)
[2018-11-25] MEDS: LEVALBUTEROL 1.25 MG/0.5 ML CONCENTRATE NEB INH SCH ×4 (04:32→20:00)
[2018-11-25] MEDS: HEPARIN SOD (PORCINE) 5000 UNITS/ML VIAL SC SCH ×3 (05:52→21:44)
[2018-11-25] MEDS: LevoFLOXacin 750 MG TABLET PO SCH (05:52)
[2018-11-25] MEDS: SLF 3 ML SYR IV SCH ×3 (05:52→21:44)
[2018-11-25 06:00] VITALS: BP 144/75
[2018-11-25 06:02] LABS: BASO % 0.3 % (0.0-1.0); EOS % 0.3 % (0.0-3.0); HEMATOCRIT 30.7 % (36.0-47.0); HEMOGLOBIN 9.8 g/dl (12.0-15.5); LYMPH # 0.9 10^3/uL (1.5-4.5); MEAN CORPUSCULAR HEMOGLOBIN 30.6 pg (27.0-33.0); MEAN CORPUSCULAR HGB CONC 31.9 g/dl (32.0-36.5); MEAN CORPUSCULAR VOLUME 95.9 fl (80.0-96.0); MONO # 0.8 10^3/uL (0.0-0.8); MONO % 12.7 % (0.0-5.0); NEUTROPHILS # 4.7 10^3/uL (1.8-7.7); NEUTROPHILS % 72.1 % (36.0-66.0); PLATELET COUNT, AUTOMATED 274 10^3/uL (150-450); WHITE BLOOD COUNT 6.6 10^3/uL (4.0-10.0)
[2018-11-25 06:14] LABS: ALBUMIN 2.3 GM/DL (3.2-5.2); ALT/SGPT 20 U/L (12-78); BILIRUBIN,TOTAL 0.2 MG/DL (0.2-1.0); BLOOD UREA NITROGEN 7 MG/DL (7-18); CALCIUM LEVEL 9.4 MG/DL (8.5-10.1); CARBON DIOXIDE LEVEL 27 MEQ/L (21-32); CHLORIDE LEVEL 102 MEQ/L (98-107); CREATININE FOR GFR 0.62 MG/DL (0.55-1.30); GLOMERULAR FILTRATION RATE > 60.0 (>51); GLUCOSE, FASTING 262 MG/DL (70-100); MAGNESIUM LEVEL 1.8 MG/DL (1.8-2.4); POTASSIUM SERUM 3.8 MEQ/L (3.5-5.1); SODIUM LEVEL 138 MEQ/L (136-145); TOTAL PROTEIN 7.3 GM/DL (6.4-8.2)
[2018-11-25] MEDS: ADVAIR HFA 230/21MCG INHALER INH SCH ×2 (07:29→20:53)
[2018-11-25] MEDS: HumaLOG INSULIN (NovoLOG) PER UNIT SC SCH ×4 (08:07→21:43)
[2018-11-25] MEDS: AMITRIPTYLINE 50 MG TAB PO SCH ×2 (08:07→21:42)
[2018-11-25] MEDS: DICLOFENAC EPOLAMINE 1.3 % PATCH TOP SCH ×2 (08:08→21:43)
[2018-11-25] MEDS: SODIUM CHLORIDE 0.9% INJ 10 ML SYR IV SCH (08:08)
--- NOTE | 2018-11-25 08:14 | REP ---
CT LEFT KNEE WITHOUT CONTRAST: HISTORY: Swelling and pain. TECHNIQUE: Helical scanning is acquired, and 2 mm axial images are generated. Coronal and sagittal multiplanar reformation images are generated. Comparison radiographs are from October 30, 2017. There are also radiographs of the left knee from November 15, 2014. CT FINDINGS: There is a large joint effusion in the suprapatellar bursa. This is visible radiographically. There is also multifocal chondrocalcinosis affecting the articular cartilage of the knee in all three compartments. This suggests calcium pyrophosphate deposition disease (pseudogout). However, it is nonspecific. It can be seen in osteoarthritis and other arthritides. There is a mild articular spurring of the patella as seen on radiographs superiorly and inferiorly. There is no evidence of fracture. No erosive changes seen. Soft tissues are otherwise unremarkable. IMPRESSION: Large joint effusion. Fairly extensive chondrocalcinosis suggestive of CPPD. Mild spurring. No erosive changes seen. There are surgical clips in the popliteal soft tissues, as before. Electronically Signed by Skyler Godoy MD 11/25/2018 09:11 A
[2018-11-25 10:06] VITALS: BP 130/68
--- NOTE | 2018-11-25 10:16 | IPNPDOC ---
Subjective Date Seen The patient was seen on 11/25/18. Subjective Chief Complaint/HPI Left knee still hurts; abdomen feels a little better. Constitutional: Denies: Chills Pulmonary: Denies: Dyspnea, Pleuritic Chest Pain Cardiovascular: Denies: Chest Pain, Palpitations Gastrointestinal: Reports: Abdominal Pain (a little better); Denies: Nausea Genitourinary: Denies: Dysuria Endocrine: Denies: Polydipsia Musculoskeletal: Reports: Joint Pain (left knee. about the same she reports) Objective Physical Examination General Exam: Positive: Alert, Cooperative, No Acute Distress ENT Exam: Positive: Mucous membr. moist/pink Neck Exam: Positive: Supple Chest Exam: Positive: Diminished; Negative: Clear to auscultation, Normal air movement, Rhonchi Heart Exam: Positive: Rate Normal Abdomen Exam: Positive: BS Hypoactive, Soft, Tenderness (less distended and less tender. ostomy functioning.) Extremity Exam: Positive: Tenderness, Swelling (left knee also warm to touch, effusion present, no erythema); Negative: Edema Skin Exam: Positive: Nl turgor and temperature Neuro Exam: Positive: Normal Speech Psych Exam: Positive: Mood NL Assessment /Plan Problems (1) Small bowel obstruction Status: Acute Response to Treatment: Stable Problem Specific Plan: Consult Specialist Problem Text: 11/25: some improvement in distention. still some discomfort which may be chronic issue for her since intervention to alleviate this partial SBO would likely generate more future similar episodes as has already been demonstrated. appreciate surgery input ondan q4 prn/meto 5 q8 prn/alvim 12 BID 11/22 SLIV 11/21 NS 100 to 50H 11/20 advanced to clears 11/19 SBFT s SBO 11/17 increased HM 0.5 q4H to q3H, answered numerous questions re hospice 11/13 Surgery has been consulted. Patient currently NPO with NG tube until symptoms resolve 11/12/18 CT AP c closed loop SBO (2) Left knee pain Status: Acute Problem Text: 11/25: continues to have pain. she doesn't think it has improved much. CT supports possible calcium pyrophosphate deposition disease but is non- specific. normal white count argues against infection of CRP is elevated. Pseudogout vs infection. Will request opinion from Ortho. May need joint aspiration for diagnostic confirmation vs empiric Rx with prednisone. 11/24 L knee remains swollen, XR confirms effusion,and calcifications near cartilage which could represent pseudogout. MRI recommended, however pt with battery placement unable to have MRI, will obtain CT, consider Ortho consult. Repeat CRP. Currently on IV Levaquin for PN. Start Flector patch since gel form of diclofenac not available. 11/23 denies injury but left knee swollen and painful. she has hx of previous surgery on knee cartilage, Dr. Preston, many years ago, bilaterally. Knee if warm, swollen deep to quadriceps tendon. (3) LLL pneumonia Status: Acute Response to Treatment: Stable Discussed With: Nurse, Patient Problem Specific Plan: Monitor Clinically, Repeat Labs Problem Text: 11/25 continues to improve clinically with minimal symptoms. 11/24 Res status cont to improve, afebrile, WBC 5.6. 11/23 Resp status cont to improved, with afebile, without leukocytosis. D5 levo 750 IV 11/22 AF, improved cough, WBC 7.5 (9.6) 11/22 CXR c mild PVC and requiring 2L O2-SLIV 11/19 new onset cough c CXR patchy LLL infiltrate (4) Generalized abdominal pain Status: Acute Response to Treatment: Stable, Improving Problem Text: as per SBO (5) T2DM (type 2 diabetes mellitus) Status: Chronic Response to Treatment: Stable Problem Text: HD glar 70 qAM, NPH 35 SC lunch 11/22 increased to 20 11/21 BG mid 200s; therefore, + det 10 QHS to SSLI (6) Hypokalemia Status: Resolved Problem Text: 11/24 repeat K Runs today 11/23 K+ 3.3, K Run x 2 ordered. continue K runs prn 11/22 3.8 (7) Hypomagnesemia Onset Date: 02/24/2014 Status: Chronic Response to Treatment: Stable Problem Text: continue prn Mg run 11/22 1.7 11/21 1.5 x 2 runs (8) Physical deconditioning Status: Chronic Problem Text: 11/24 will need f/u PT given L knee effusion/pain. 11/18 PT safe to dc home WMS 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?: Yes (Heparin) VS, I&O, 24H, Fishbone Vital Signs/I&O Vital Signs Date Time Temp Pulse Resp B/P (MAP) Pulse Ox O2 Delivery O2 Flow Rate FiO2 11/25/18 08:09 16 11/25/18 06:00 99.9 89 144/75 (98) 90 11/23/18 22:00 Room Air 11/23/18 20:00 2.0 I&O- Last 24 Hours up to 6 AM 11/25/18 06:00 Intake Total 460 ml Output Total 750 ml Balance -290 ml Laboratory Data 24H LABS Laboratory Tests 2 11/24/18 11:56: Bedside Glucose (Misc Panel) 323H 11/24/18 16:56: Bedside Glucose (Misc Panel) 163H 11/24/18 20:27: Bedside Glucose (Misc Panel) 285H 11/25/18 05:26: Immature Granulocyte % (Auto) 0.6, White Blood Count 6.6, Red Blood Count 3.20L, Hemoglobin 9.8L, Hematocrit 30.7L, Mean Corpuscular Volume 95.9, Mean Corpu scular Hemoglobin 30.6, Mean Corpuscular Hemoglobin Concent 31.9L, Red Cell Distribution Width 14.2, Platelet Count 274, Neutrophils (%) (Auto) 72.1H, Lymphocytes (%) (Auto) 14.0L, Monocytes (%) (Auto) 12.7H, Eosinophils (%) (Auto) 0.3, Basophils (%) (Auto) 0.3, Neutrophils # (Auto) 4.7, Lymphocytes # (Auto) 0.9L, Monocytes # (Auto) 0.8, Eosinophils # (Auto) 0.0, Basophils # (Auto) 0.0, Nucleated Red Blood Cells % (auto) 0.0, Anion Gap 9, Glomerular Filtration Rate > 60.0, Blood Urea Nitrogen 7, Creatinine 0.62, Sodium Level 138, Potassium Level 3.8, Chloride Level 102, Carbon Dioxide Level 27, Calcium Level 9.4, Aspartate Amino Transf (AST/SGOT) 15, Alanine Aminotransferase (ALT/SGPT) 20, A lkaline Phosphatase 141H, Total Bilirubin 0.2, Total Protein 7.3, Albumin 2.3L, Magnesium Level 1.8, C-Reactive Protein, Quantitative 11.00H, Albumin/Globulin Ratio 0.46L CBC/BMP Laboratory Tests 11/25/18 05:26 Red Blood Count 3.20 L, Mean Corpuscular Volume 95.9, Mean Corpuscular Hemoglobin 30.6, Mean Corpuscular Hemoglobin Concent 31.9 L, Red Cell Distribution Width 14.2, Neutrophils (%) (Auto) 72.1 H, Lymphocytes (%) (Auto) 14.0 L, Monocytes (%) (Auto) 12.7 H, Eosinophils (%) (Auto) 0.3, Basophils (%) (Auto) 0.3, Neutrophils # (Auto) 4.7, Lymphocytes # (Auto) 0.9 L, Monocytes # (Auto) 0.8, Eosinophils # (Auto) 0.0, Basophils # (Auto) 0.0, Calcium Level 9.4, Aspartate Amino Transf (AST/SGOT) 15, Alanine Aminotransferase (ALT/SGPT) 20, Alkaline Phosphatase 141 H, Total Bilirubin 0.2, Total Protein 7.3, Albumin 2.3 L Yosi Jiménez MD Nov 25, 2018 10:16
[2018-11-25] MEDS: FAMOTIDINE IV BAG 20 MG in IV 1 EA IV SCH (12:35)
[2018-11-25] MEDS: SODIUM CHLORIDE 0.9% INJ 10 ML SYR IV PRN (13:11)
[2018-11-25 14:20] VITALS: BP 123/65
[2018-11-25] MEDS ORDERED: LIDOCAINE 1% MDV 20ML VIAL As Ordered ONE (15:37)
--- NOTE | 2018-11-25 16:51 | REP ---
Ultrasound-guided left knee aspiration This procedure was performed by REGLA Napoles, under the direct supervision of Dr. Godoy. The risks and the benefits of the procedure were explained to the patient and informed consent was obtained both verbally and written. Directly prior to the start of the procedure, a formal time out was completed in the procedure room. The left knee effusion was localized using ultrasound guidance. The skin was prepped and draped in a sterile fashion. 3 ml of 1% lidocaine was used as a local anesthetic. Using ultrasound guidance a 5-Welsh skater centesis catheter was inserted and advanced into the lateral aspect of the joint effusion. 27 ml of joint fluid was aspirated and sent to the lab for further analysis. The catheter was removed, homeostasis was achieved, and a soft dressing was applied to the puncture site. The patient tolerated the procedure well and there were no immediate complications. After the appropriate amount of monitored convalescence the patient was discharged from the department. Reviewed by REGLA Napoles 11/25/2018 04:26 P Electronically Signed by Skyler Godoy MD 11/25/2018 04:41 P
[2018-11-25 16:59] LABS: CRYSTALS, BODY FLUID CA PYROPHOSPHATE (NONE SEEN); SOURCE, BODY FLUID CRYSTALS LFT KNEE
[2018-11-25 17:02] LABS: SOURCE, BODY FLUID LFT KNEE; SYNOVIAL FLUID COLOR YELLOW (YELLOW)
[2018-11-25 18:53] LABS: SOURCE, BODY FLUID GLUCOSE LFT KNEE; SOURCE, BODY FLUID URIC ACID LFT KNEE; URIC ACID, BODY FLUID 17.4 MG/DL (NOT ESTABLISHED)
[2018-11-25 19:00] VITALS: BP 120/66
[2018-11-25] MEDS: LEVEMIR (INSULIN DETEMIR) 1 UNITS/0.01ML SC SCH (21:43)
[2018-11-25] MEDS: guaiFENesin SYRUP 200 MG/10 ML UDC PO PRN (21:44)
[2018-11-25] MEDS: ONDANSETRON 4MG/2ML VIAL (J2405) IV PRN (21:44)
[2018-11-25 22:00] VITALS: BP 144/75
[2018-11-26] MEDS: FAMOTIDINE IV BAG 20 MG in IV 1 EA IV SCH (00:30)
[2018-11-26] MEDS: LEVALBUTEROL 1.25 MG/0.5 ML CONCENTRATE NEB INH SCH ×4 (01:20→19:27)
[2018-11-26] MEDS: HYDROMORPHONE HCL 0.5 MG/ 0.5 ML SYRINGE (J1170 PER 1) IV PRN ×5 (03:20→13:46)
[2018-11-26 06:00] VITALS: BP 138/76
[2018-11-26] MEDS: LevoFLOXacin 750 MG TABLET PO SCH (06:28)
[2018-11-26] MEDS: SLF 3 ML SYR IV SCH ×3 (06:28→22:00)
[2018-11-26] MEDS: HEPARIN SOD (PORCINE) 5000 UNITS/ML VIAL SC SCH ×3 (06:28→20:59)
[2018-11-26] MEDS: ADVAIR HFA 230/21MCG INHALER INH SCH ×2 (07:20→19:29)
--- NOTE | 2018-11-26 08:03 | REPIR ---
DATE OF PROCEDURE: 11/24/2018 DATE OF PROCEDURE 11/24/2018 PREOPERATIVE DIAGNOSIS: Dysfunctional right internal jugular vein tunneled central venous catheter with subcutaneous port. POSTOPERATIVE DIAGNOSIS: Dysfunctional right internal jugular vein tunneled central venous catheter with subcutaneous port. PROCEDURE: Right internal jugular vein tunneled central venous catheter with subcutaneous port access with flushing and attempted aspiration. Right internal jugular vein tunneled central venous catheter with subcutaneous port removal. Right innominate vein angioplasty with 12 x 8 balloon. Right superior vena cava angioplasty with 12 x 8 balloon. Right internal jugular vein angioplasty with 4 x 100 and 5 x 100 balloon. Tunnel tract angioplasty with 4 x 100 and 5 x 100 balloon placement of a dual lumen PowerPort with 25 cm length catheter. ATTENDING SURGEON: Dr. Komal Crockett. ASSISTANTS: Jarod Mascorro and Megan Mendez. ANESTHESIA: Local with 20 mL of 2% lidocaine mixed with 0.5% Marcaine. FLUOR TIME: 1.8 minutes. CONTRAST: None. COMPLICATIONS: None. DRAINS: None. SPECIMENS: None. IMPLANT: Bard PowerPort dual lumen tunneled central venous catheter with subcutaneous port with a 25 cm length catheter. INDICATION: The patient is a 58-year-old female with poor IV access who was admitted to the hospital and had a right internal jugular vein tunneled central venous catheter with subcutaneous port, which was functioning well till today. The patient was able to continue with flushes through the port but was unable to undergo aspiration of blood from the port. The patient will undergo a port evaluation with possible exchange. DESCRIPTION OF PROCEDURE: The patient was taken to the angiography suite, placed supine on the angiography room table and then prepped and draped in a standard surgical fashion. The port was accessed with a Serrano needle and noted to flush easily but there was no aspiration of blood from the port, which flushed easily. The patient has a contrast allergy and was not premedicated and unable to undergo a catheter flow study. An incision was then made overlying the port after anesthetizing the overlying skin and subcutaneous tissue with 2% lidocaine mixed 0.5% Marcaine. The port was disconnected from the catheter and a [employer] wire was advanced through the catheter into the inferior vena cava. The catheter was removed with some difficulty. Once the catheter was removed, the superior vena cava was angioplastied with a 12 x 8 balloon. The innominate vein was angioplastied with 12 x 8 balloon with a waste present consistent with a fibrin sheath. The new dual-lumen catheter was attempted to be advanced over the Bentson wire without success due to the tract and internal jugular vein having residual stenosis and a fibrin sheath. The tract and the internal jugular vein was then angioplastied with a 4 x 100 balloon with continued difficulty advancing the catheter. The tract and the internal jugular vein were then angioplastied with 5 x 100 balloon at which point the catheter advanced easily over the Bentson wire and was positioned into the superior vena cava right atrial junction. Catheter was cut to 25 cm and attached to the dual-lumen port, which was placed in the pocket created in the right chest. Both ports were accessed and noted to aspirate easily and then flushed with heparinized saline. The incision was closed using #3-0 Monocryl in inverted interrupted fashion. Steri-Strips were applied. Both ports were cannulated using Serrano 20 gauge needles, flushed with heparinized saline and then secured using dressing. All instrument, sponge, needle counts were correct at the end the case. There were no complications. Dr. Crockett was present for and directed the entire case. The patient was transferred to the holding area and subsequently to the floor in stable condition. Both ports of the dual lumen right internal jugular vein tunneled central venous catheter with subcutaneous port were stable to use for access.
[2018-11-26] MEDS: AMITRIPTYLINE 50 MG TAB PO SCH ×2 (08:27→21:01)
[2018-11-26] MEDS: HumaLOG INSULIN (NovoLOG) PER UNIT SC SCH ×4 (08:27→21:00)
[2018-11-26] MEDS: SODIUM CHLORIDE 0.9% INJ 10 ML SYR IV SCH ×2 (08:28→13:25)
[2018-11-26] MEDS: DICLOFENAC EPOLAMINE 1.3 % PATCH TOP SCH ×2 (08:28→20:59)
[2018-11-26] MEDS ORDERED: predniSONE 10 MG TAB PO SCH (09:00)
--- NOTE | 2018-11-26 09:05 | IPNPDOC ---
Subjective Date Seen The patient was seen on 11/26/18. Subjective Chief Complaint/HPI Pt this morning without new concerns. She states that she still has abd pain, but is tolerating a reg diet and has good stool production in her ostomy. She states that her breathing has improved, she still has a slight cough. She cont to have some L knee pain, but this is better since have some of the fluid drawn off. Denies fevers or chills. General: Denies: Fatigue Constitutional: Denies: Chills, Fever Pulmonary: Reports: Cough; Denies: Dyspnea Cardiovascular: Denies: Chest Pain, Palpitations Gastrointestinal: Reports: Abdominal Pain; Denies: Nausea, Vomiting, Diarrhea, Constipation Musculoskeletal: Reports: Joint Pain (L knee pain) Neurological: Reports: Weakness Psych: Reports: Mood Normal Objective Physical Examination General Exam: Positive: Alert, Cooperative, No Acute Distress ENT Exam: Positive: Mucous membr. moist/pink Neck Exam: Positive: Supple Chest Exam: Positive: Diminished; Negative: Clear to auscultation, Normal air movement, Rhonchi Heart Exam: Positive: Rate Normal Abdomen Exam: Positive: Normal bowel sounds, Soft, Tenderness (less distended and less tender. ostomy functioning.) Extremity Exam: Positive: Tenderness, Swelling (left knee mild effusion present, no erythema); Negative: Edema Skin Exam: Positive: Nl turgor and temperature Neuro Exam: Positive: Normal Speech Psych Exam: Positive: Mood NL Assessment /Plan Problems (1) Left knee pain Status: Acute Problem Text: 11/26 aspirate suggestive of pseudogout, will start Pred 40 mg daily with taper. 11/25: continues to have pain. she doesn't think it has improved much. CT supports possible calcium pyrophosphate deposition disease but is non-specific. normal white count argues against infection of CRP is elevated. Pseudogout vs infection. Will request opinion from Ortho. May need joint aspiration for diagnostic confirmation vs empiric Rx with prednisone. 11/24 L knee remains swollen, XR confirms effusion,and calcifications near cartilage which could represent pseudogout. MRI recommended, however pt with battery placement unable to have MRI, will obtain CT, consider Ortho consult. Repeat CRP. Currently on IV Levaquin for PN. Start Flector patch since gel form of diclofenac not available. 11/23 denies injury but left knee swollen and painful. she has hx of previous surgery on knee cartilage, Dr. Preston, many years ago, bilaterally. Knee if warm, swollen deep to quadriceps tendon. (2) Small bowel obstruction Status: Acute Response to Treatment: Stable Problem Specific Plan: Consult Specialist Problem Text: 11/26 stable. 11/25: some improvement in distention. still some discomfort which may be chronic issue for her since intervention to alleviate this partial SBO would likely generate more future similar episodes as has already been demonstrated. appreciate surgery input ondan q4 prn/meto 5 q8 prn/alvim 12 BID 11/22 SLIV 11/21 NS 100 to 50H 11/20 advanced to clears 11/19 SBFT s SBO 11/17 increased HM 0.5 q4H to q3H, answered numerous questions re hospice 11/13 Surgery has been consulted. Patient currently NPO with NG tube until symp toms resolve 11/12/18 CT AP c closed loop SBO (3) LLL pneumonia Status: Acute Response to Treatment: Stable Discussed With: Nurse, Patient Problem Specific Plan: Monitor Clinically, Repeat Labs Problem Text: 11/25 continues to improve clinically with minimal symptoms. 11/24 Res status cont to improve, afebrile, WBC 5.6. 11/23 Resp status cont to improved, with afebile, without leukocytosis. D5 levo 750 IV 11/22 AF, improved cough, WBC 7.5 (9.6) 11/22 CXR c mild PVC and requiring 2L O2-SLIV 11/19 new onset cough c CXR patchy LLL infiltrate (4) Generalized abdominal pain Status: Acute Response to Treatment: Stable, Improving Problem Text: as per SBO (5) T2DM (type 2 diabetes mellitus) Status: Chronic Response to Treatment: Stable Problem Text: HD glar 70 qAM, NPH 35 SC lunch 11/22 increased to 20 11/21 BG mid 200s; therefore, + det 10 QHS to SSLI (6) Hypokalemia Status: Resolved Problem Text: 11/24 repeat K Runs today 11/23 K+ 3.3, K Run x 2 ordered. continue K runs prn 11/22 3.8 (7) Hypomagnesemia Onset Date: 02/24/2014 Status: Chronic Response to Treatment: Stable Problem Text: continue prn Mg run 11/22 1.7 11/21 1.5 x 2 runs (8) Physical deconditioning Status: Chronic Problem Text: 11/24 will need f/u PT given L knee effusion/pain. 11/18 PT safe to dc home WMS 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?: Yes (Heparin) VS, I&O, 24H, Fishbone Vital Signs/I&O Vital Signs Date Time Temp Pulse Resp B/P (MAP) Pulse Ox O2 Delivery O2 Flow Rate FiO2 11/26/18 06:38 18 11/26/18 06:00 98.2 90 138/76 (96) 92 11/25/18 23:11 2.0 11/23/18 22:00 Room Air I&O- Last 24 Hours up to 6 AM 11/26/18 05:59 Intake Total 1560 ml Output Total 1875 ml Balance -315 ml Laboratory Data 24H LABS Laboratory Tests 2 11/25/18 12:18: Bedside Glucose (Misc Panel) 320H 11/25/18 16:04: Body Fluid WBC (Auto) 58827U, Body Fluid RBC (Auto) 4, Body Fluid Mononuclear Cells % Auto 5.0H, Fluid Polymorphonuclear Cell % Auto 95.0H, Body Fluid Crystals CA PYROPHOSPHATEH, Body Fluid Crystal Source LFT KNEE, Body Fluid G lucose Source LFT KNEE, Body Fluid Glucose 66, Body Fluid Uric Acid 17.4, Body Fluid Uric Acid Source LFT KNEE, Synovial Fluid Source LFT KNEE, Synovial Fluid Color YELLOW, Synovial Fluid Appearance CLOUDY 11/25/18 17:16: Bedside Glucose (Misc Panel) 317H 11/25/18 20:06: Bedside Glucose (Misc Panel) 330H 11/26/18 08:19: Bedside Glucose (Misc Panel) 264H Microbiology Microbiology 11/25/18 Gram Stain - Final, Resulted 11/25/18 Body Fluid Culture, Resulted Pending ARELY MARC PA-C Nov 26, 2018 09:05
[2018-11-26 09:22] LABS: BODY FLUID RHEUMATOID SCREEN NEGATIVE (NEGATIVE); MUCIN CLOT TEST 4+ (4+)
[2018-11-26] MEDS: FAMOTIDINE 20 MG TAB PO SCH ×2 (10:13→21:00)
[2018-11-26] MEDS: SODIUM CHLORIDE 0.9% INJ 10 ML SYR IV PRN ×2 (10:14→13:46)
[2018-11-26 14:00] VITALS: BP 144/71
[2018-11-26 14:58] LABS: BASO % 0.3 % (0.0-1.0); EOS % 0.3 % (0.0-3.0); HEMATOCRIT 34.1 % (36.0-47.0); HEMOGLOBIN 11.1 g/dl (12.0-15.5); LYMPH # 0.3 10^3/uL (1.5-4.5); LYMPH % 5.3 % (24.0-44.0); MEAN CORPUSCULAR HEMOGLOBIN 32.2 pg (27.0-33.0); MEAN CORPUSCULAR HGB CONC 32.6 g/dl (32.0-36.5); MEAN CORPUSCULAR VOLUME 98.8 fl (80.0-96.0); MONO # 0.2 10^3/uL (0.0-0.8); MONO % 3.5 % (0.0-5.0); NEUTROPHILS # 5.7 10^3/uL (1.8-7.7); PLATELET COUNT, AUTOMATED 274 10^3/uL (150-450); RED BLOOD COUNT 3.45 10^6/uL (4.00-5.40); WHITE BLOOD COUNT 6.4 10^3/uL (4.0-10.0)
[2018-11-26 15:28] LABS: ALBUMIN 2.4 GM/DL (3.2-5.2); ALT/SGPT 24 U/L (12-78); BILIRUBIN,TOTAL 0.1 MG/DL (0.2-1.0); BLOOD UREA NITROGEN 10 MG/DL (7-18); CALCIUM LEVEL 10.5 MG/DL (8.5-10.1); CARBON DIOXIDE LEVEL 28 MEQ/L (21-32); CHLORIDE LEVEL 97 MEQ/L (98-107); CREATININE FOR GFR 0.84 MG/DL (0.55-1.30); GLOMERULAR FILTRATION RATE > 60.0 (>51); GLUCOSE, FASTING 319 MG/DL (70-100); MAGNESIUM LEVEL 1.9 MG/DL (1.8-2.4); POTASSIUM SERUM 4.5 MEQ/L (3.5-5.1); SODIUM LEVEL 133 MEQ/L (136-145); TOTAL PROTEIN 8.1 GM/DL (6.4-8.2)
[2018-11-26] MEDS: HYDROmorphone 2 MG TAB PO PRN ×2 (17:01→21:00)
[2018-11-26] MEDS: LEVEMIR (INSULIN DETEMIR) 1 UNITS/0.01ML SC SCH (20:59)
[2018-11-27] MEDS: HYDROmorphone 2 MG TAB PO PRN ×4 (00:17→10:48)
[2018-11-27] MEDS: LEVALBUTEROL 1.25 MG/0.5 ML CONCENTRATE NEB INH SCH ×2 (00:31→07:33)
[2018-11-27 06:15] VITALS: BP 147/80
[2018-11-27] MEDS: HEPARIN SOD (PORCINE) 5000 UNITS/ML VIAL SC SCH (06:23)
[2018-11-27] MEDS: LevoFLOXacin 750 MG TABLET PO SCH (06:24)
[2018-11-27] MEDS: SLF 3 ML SYR IV SCH (06:24)
[2018-11-27 06:37] LABS: BASO % 0.5 % (0.0-1.0); EOS % 0.3 % (0.0-3.0); HEMATOCRIT 31.8 % (36.0-47.0); HEMOGLOBIN 10.3 g/dl (12.0-15.5); LYMPH % 16.7 % (24.0-44.0); MEAN CORPUSCULAR HEMOGLOBIN 30.7 pg (27.0-33.0); MEAN CORPUSCULAR HGB CONC 32.4 g/dl (32.0-36.5); MEAN CORPUSCULAR VOLUME 94.9 fl (80.0-96.0); MONO # 0.6 10^3/uL (0.0-0.8); MONO % 10.1 % (0.0-5.0); NEUTROPHILS # 4.4 10^3/uL (1.8-7.7); NEUTROPHILS % 71.3 % (36.0-66.0); PLATELET COUNT, AUTOMATED 323 10^3/uL (150-450); RED BLOOD COUNT 3.35 10^6/uL (4.00-5.40); WHITE BLOOD COUNT 6.2 10^3/uL (4.0-10.0)
[2018-11-27 07:08] LABS: ALBUMIN 2.4 GM/DL (3.2-5.2); ALT/SGPT 22 U/L (12-78); BILIRUBIN,TOTAL 0.1 MG/DL (0.2-1.0); BLOOD UREA NITROGEN 12 MG/DL (7-18); CALCIUM LEVEL 9.7 MG/DL (8.5-10.1); CARBON DIOXIDE LEVEL 29 MEQ/L (21-32); CHLORIDE LEVEL 97 MEQ/L (98-107); CREATININE FOR GFR 0.78 MG/DL (0.55-1.30); GLOMERULAR FILTRATION RATE > 60.0 (>51); GLUCOSE, FASTING 382 MG/DL (70-100); POTASSIUM SERUM 4.1 MEQ/L (3.5-5.1); SODIUM LEVEL 133 MEQ/L (136-145)
[2018-11-27] MEDS: ADVAIR HFA 230/21MCG INHALER INH SCH (07:25)
[2018-11-27] MEDS: HumaLOG INSULIN (NovoLOG) PER UNIT SC SCH ×2 (07:46→12:14)
[2018-11-27] MEDS ORDERED: predniSONE 20 MG TAB PO SCH (09:00)
[2018-11-27] MEDS: DICLOFENAC EPOLAMINE 1.3 % PATCH TOP SCH (09:39)
[2018-11-27] MEDS: FAMOTIDINE 20 MG TAB PO SCH (09:41)
[2018-11-27] MEDS: AMITRIPTYLINE 50 MG TAB PO SCH (09:41)
--- NOTE | 2018-11-27 09:57 | IPNPDOC ---
Subjective Date Seen The patient was seen on 11/27/18. Subjective Chief Complaint/HPI feeling better but port won't aspirate on her PICC (one of 2) Constitutional: Denies: Chills Pulmonary: Denies: Dyspnea, Cough Cardiovascular: Denies: Chest Pain, Palpitations Gastrointestinal: Reports: Abdominal Pain (improved, but a little tender suprapubic/infraumbilical area.); Denies: Nausea Musculoskeletal: Denies: Neck Pain Neurological: Denies: Weakness, Numbness Psych: Reports: Mood Normal Objective Physical Examination General Exam: Positive: Alert, Cooperative, No Acute Distress ENT Exam: Positive: Mucous membr. moist/pink Neck Exam: Positive: Supple Chest Exam: Positive: Diminished; Negative: Clear to auscultation, Normal air movement, Rhonchi Heart Exam: Positive: Rate Normal Abdomen Exam: Positive: Normal bowel sounds, Soft, Tenderness (less distended and less tender. ostomy functioning.) Extremity Exam: Positive: Tenderness, Swelling (left knee mild effusion present, no erythema); Negative: Edema Skin Exam: Positive: Nl turgor and temperature Neuro Exam: Positive: Normal Speech Psych Exam: Positive: Mood NL Other physical findings shorter access port of her PICC flushes and will aspirate. the longer one flushes easily but can't aspirate. Assessment /Plan Problems (1) Left knee pain Status: Acute Problem Text: 11/27: less pain, moving with walker, less warm. cultures negative, gram stain no bacteria seen. 11/26 aspirate suggestive of pseudogout, will start Pred 40 mg daily with taper. 11/25: continues to have pain. she doesn't think it has improved much. CT supports possible calcium pyrophosphate deposition disease but is non-specific. normal white count argues against infection of CRP is elevated. Pseudogout vs infection. Will request opinion from Ortho. May need joint aspiration for diagnostic confirmation vs empiric Rx with prednisone. 11/24 L knee remains swollen, XR confirms effusion,and calcifications near cartilage which could represent pseudogout. MRI recommended, however pt with battery placement unable to have MRI, will obtain CT, consider Ortho consult. Repeat CRP. Currently on IV Levaquin for PN. Start Flector patch since gel form of diclofenac not available. 11/23 denies injury but left knee swollen and painful. she has hx of previous surgery on knee cartilage, Dr. Preston, many years ago, bilaterally. Knee if warm, swollen deep to quadriceps tendon. (2) Small bowel obstruction Status: Acute Response to Treatment: Stable Problem Specific Plan: Consult Specialist Problem Text: 11/26 stable. 11/25: some improvement in distention. still some discomfort which may be chronic issue for her since intervention to alleviate this partial SBO would likely generate more future similar episodes as has already been demonstrated. appreciate surgery input ondan q4 prn/meto 5 q8 prn/alvim 12 BID 11/22 SLIV 11/21 NS 100 to 50H 11/20 advanced to clears 11/19 SBFT s SBO 11/17 increased HM 0.5 q4H to q3H, answered numerous questions re hospice 11/13 Surgery has been consulted. Patient currently NPO with NG tube until symptoms resolve 11/12/18 CT AP c closed loop SBO (3) LLL pneumonia Status: Acute Response to Treatment: Stable Discussed With: Nurse, Patient Problem Specific Plan: Monitor Clinically, Repeat Labs Problem Text: 11/27 clinically resolved. will need f/u xray as outpt. 11/25 continues to improve clinically with minimal symptoms. 11/24 Res status cont to improve, afebrile, WBC 5.6. 11/23 Resp status cont to improved, with afebile, without leukocytosis. D5 levo 750 IV 11/22 AF, improved cough, WBC 7.5 (9.6) 11/22 CXR c mild PVC and requiring 2L O2-SLIV 11/19 new onset cough c CXR patchy LLL infiltrate (4) Generalized abdominal pain Status: Acute Response to Treatment: Stable, Improving Problem Text: as per SBO (5) T2DM (type 2 diabetes mellitus) Status: Chronic Response to Treatment: Stable Problem Text: HD glar 70 qAM, NPH 35 SC lunch 11/22 increased to 20 11/21 BG mid 200s; therefore, + det 10 QHS to SSLI (6) Hypokalemia Status: Resolved Problem Text: 11/24 repeat K Runs today 11/23 K+ 3.3, K Run x 2 ordered. continue K runs prn 11/22 3.8 (7) Hypomagnesemia Onset Date: 02/24/2014 Status: Chronic Response to Treatment: Stable Problem Text: continue prn Mg run 11/22 1.7 11/21 1.5 x 2 runs (8) Physical deconditioning Status: Chronic Problem Text: 11/24 will need f/u PT given L knee effusion/pain. 11/18 PT safe to dc home WMS 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?: Yes (Heparin) Plan Anticipated Discharge: Home VS, I&O, 24H, Fishbone Vital Signs/I&O Vital Signs Date Time Temp Pulse Resp B/P (MAP) Pulse Ox O2 Delivery O2 Flow Rate FiO2 11/27/18 08:30 16 11/27/18 06:15 98.1 84 147/80 (102) 93 11/27/18 01:49 11/23/18 22:00 Room Air I&O- Last 24 Hours up to 6 AM 11/27/18 06:00 Intake Total 1420 ml Output Total 2500 ml Balance -1080 ml Laboratory Data 24H LABS Laboratory Tests 2 11/26/18 11:25: Bedside Glucose (Misc Panel) 346H 11/26/18 14:43: Immature Granulocyte % (Auto) 0.6, White Blood Count 6.4, Red Blood Count 3.45L, Hemoglobin 11.1L, Hematocrit 34.1L, Mean Corpuscular Volume 98.8H, Mean Corpuscular Hemoglobin 32.2, Mean Corpuscular Hemoglobin Concent 32.6, Red Cell Distribution Width 14.3, Platelet Count 274, Neutrophils (%) (Auto) 90.0H, Lymphocytes (%) (Auto) 5.3L, Monocytes (%) (Auto) 3.5, Eosinophils (%) (Auto) 0.3, Basophils (%) (Auto) 0.3, Neutrophils # (Auto) 5.7, Lymphocytes # (Auto) 0.3L, Monocytes # (Auto) 0.2, Eosinophils # (Auto) 0.0, Basophils # (Auto) 0.0, Nucleated Red Blood Cells % (auto) 0.0 11/26/18 14:47: Anion Gap 8, Glomerular Filtration Rate > 60.0, Blood Urea Nitrogen 10, Creatinine 0.84, Sodium Level 133L, Potassium Level 4.5, Chloride Level 97L, Carbon Dioxide Level 28, Calcium Level 10.5H, Aspartate Amino Transf (AST/SGOT) 13, Alanine Aminotransferase (ALT/SGPT) 24, Alkaline Phosphatase 152H, Total Bilirubin 0.1L, Total Protein 8.1, Albumin 2.4L, Magnesium Level 1.9, Albumin/Globulin Ratio 0.42L 11/26/18 16:43: Bedside Glucose (Misc Panel) 380H 11/26/18 20:54: Bedside Glucose (Misc Panel) 451H 11/27/18 06:20: Immature Granulocyte % (Auto) 1.1, White Blood Count 6.2, Red Blood Count 3.35L, Hemoglobin 10.3L, Hematocrit 31.8L, Mean Corpuscular Volume 94.9, Mean Corpuscular Hemoglobin 30.7, Mean Corpuscular Hemoglobin Concent 32.4, Red Cell Distribution Width 14.0, Platelet Count 323, Neutrophils (%) (Auto) 71.3H, Lymphocytes (%) (Auto) 16.7L, Monocytes (%) (Auto) 10.1H, Eosinophils (%) (Auto) 0.3, Basophils (%) (Auto) 0.5, Neutrophils # (Auto) 4.4, Lymphocytes # (Auto) 1.0L, Monocytes # (Auto) 0.6, Eosinophils # (Auto) 0.0, Basophils # (Auto) 0.0, Nucleated Red Blood Cells % (auto) 0.0, Anion Gap 7L, Glomerular Filtration Rate > 60.0, Blood Urea Nitrogen 12, Creatinine 0.78, Sodium Level 133L, Potassium Level 4.1, Chloride Level 97L, Carbon Dioxide Level 29, Calcium Level 9.7, Aspartate Amino Transf (AST/SGOT) 14, Alanine Aminotransferase (ALT/SGPT) 22, Alkaline Phosphatase 146H, Total Bilirubin 0.1L, Total Protein 7.0, Albumin 2.4L, Albumin/Globulin Ratio 0.52L CBC/BMP Laboratory Tests 11/26/18 14:43 Red Blood Count 3.45 L, Mean Corpuscular Volume 98.8 H, Mean Corpuscular Hemoglobin 32.2, Mean Corpuscular Hemoglobin Concent 32.6, Red Cell Distribution Width 14.3, Neutrophils (%) (Auto) 90.0 H, Lymphocytes (%) (Auto) 5.3 L, Monocytes (%) (Auto) 3.5, Eosinophils (%) (Auto) 0.3, Basophils (%) (Auto) 0.3, Neutrophils # (Auto) 5.7, Lymphocytes # (Auto) 0.3 L, Monocytes # (Auto) 0.2, Eosinophils # (Auto) 0.0, Basophils # (Auto) 0.0 11/26/18 14:47 Calcium Level 10.5 H, Aspartate Amino Transf (AST/SGOT) 13, Alanine Aminotransferase (ALT/SGPT) 24, Alkaline Phosphatase 152 H, Total Bilirubin 0.1 L, Total Protein 8.1, Albumin 2.4 L 11/27/18 06:20 Red Blood Count 3.35 L, Mean Corpuscular Volume 94.9, Mean Corpuscular Hemoglobin 30.7, Mean Corpuscular Hemoglobin Concent 32.4, Red Cell Distribution Width 14.0, Neutrophils (%) (Auto) 71.3 H, Lymphocytes (%) (Auto) 16.7 L, Monocytes (%) (Auto) 10.1 H, Eosinophils (%) (Auto) 0.3, Basophils (%) (Auto) 0.5, Neutrophils # (Auto) 4.4, Lymphocytes # (Auto) 1.0 L, Monocytes # (Auto) 0.6, Eosinophils # (Auto) 0.0, Basophils # (Auto) 0.0, Calcium Level 9.7, Aspartate Amino Transf (AST/SGOT) 14, Alanine Aminotransferase (ALT/SGPT) 22, Alkaline Phosphatase 146 H, Total Bilirubin 0.1 L, Total Protein 7.0, Albumin 2.4 L Microbiology Microbiology 11/25/18 Gram Stain - Final, Complete 11/25/18 Body Fluid Culture - Final, Complete Yosi Jiménez MD Nov 27, 2018 09:57
[2018-11-27] MEDS ORDERED: PRED20TA PO (10:27)
[2018-11-27] MEDS ORDERED: ADVA230A INH (10:54)
--- NOTE | 2018-11-28 19:53 | DSES ---
DATE OF ADMISSION: 11/12/2018 DATE OF DISCHARGE: 11/27/2018 REASON FOR ADMISSION: Ms. Franklin was admitted again for bowel-obstruction pattern, distension, cramping abdominal pain. She has had this multiple times. Usually responds after several days of suctioning. Somewhat slower to respond this time than usual, but finally has had resolution of pain sufficient to allow adequate oral intake and return to home environment. During her stay she developed acute pain in left knee with warmth, swelling, and effusion. Joint aspirate was carried out, which showed evidence of crystal arthropathy, calcium pyrophosphate crystals, 14,440 white cells per high-power field. Negative Gram stain for microorganisms. Culture was negative as of this date. A 4+ synovial mucin clot observed. Fluid uric acid was measured at 17.4. Serum uric acid level was normal. The knee is better. She had 40 mg of prednisone last night. Has been using topical diclofenac patch, which at this point I think we can stop, since the prednisone will be more effective at suppressing her symptoms. Received 40 mg prednisone yesterday. Will go forward with 20 mg daily for 5 days. EXAMINATION: Abdomen is soft. Minimal tenderness located suprapubic infraumbilical area. Bowel sounds active. Ostomy functioning. DISCHARGE MEDICATIONS: Include: - her preadmission amitriptyline 200 mg daily, 50 in the morning and 15 at bedtime - topical ammonium lactate 12% to scaly areas of skin - Xalatan nasal spray - Symbicort two puffs twice a day - Omnaris two sprays to nares daily - gemfibrozil 60 mg daily - hydromorphone 2-4 mg every 4 hours as needed for pain - insulin 70 units glargine daily - NPH 70/30 daily - lactulose 15 mL three times a day - levocetirizine 5 mg daily for allergy - metoclopramide 10 mg at bedtime - multivitamin a day - calcium chloride 20 mEq daily - ranitidine 150 mg daily - simethicone 180 mg before meals and bedtime - simvastatin 20 mg daily - Carafate 1 mg by mouth twice a day - Stiolto Respimat two puffs daily - tizanidine one-half of a 2 mg tablet twice a day - triamcinolone Nasacort spray Discontinued fluticasone salmeterol. Curiously, fluticasone salmeterol and budesonide formoterol were both listed as current medications. Injection ondansetron will be stopped. At the time of discharge, the longer catheter attached to her port does not aspirate but will flush. The shorter one will allow both aspiration and flushing. Dr. Crockett, who had seen her during her hospital stay, thought that no action was required on the port at this time. Other pertinent data include chemistries: Magnesium is 1.9 on the day before discharge, potassium 4.1 on the day of discharge, sodium 133, glucose elevation related to steroid use, likely contributes to depression over measured sodium level. Albumin was 2.4 at the time of discharge. Hemoglobin was 10.3, platelet count 323, white count 6200. ASSESSMENT: Small-bowel obstruction improved, but now incomplete ongoing symptoms but sufficient resolution to permit discharge. 2. Acute calcium pyrophosphate crystal arthropathy, left knee, improved at the time of discharge. 3. History of short-gut syndrome and associated hypomagnesemia and chronic protein calorie malnutrition. 4. Diabetes mellitus, requiring insulin therapy, long-term insulin therapy. Followup will be with her primary care provider in [address], [address] Sanchez or his assignee, and activity and diet as tolerated. The only final outstanding lab result would be a final result on her knee joint aspirate, which was done on November 25 and still negative today on the .
== END 2018-11-27 13:40 | disposition home or self-care (01) | DRG 247 ==
LOC: EDBD 12:28 → M ED 12:28 → M ED INP 21:14 → M PCU 22:35 → M MS5PR 11-23 23:20
PROVIDERS: ADMIT Internal Medicine Nephrology; ATTEND Family Medicine
PROC: 0S9D3ZZ Drainage of Left Knee Joint, Percutaneous Approach (ICD-10-PCS; principal; 2018-11-25 15:30)
DX: K56.600 Partial intestinal obstruction, unspecified as to cause (principal); J18.9 Pneumonia, unspecified organism; E46 Unspecified protein-calorie malnutrition; E11.40 Type 2 diabetes mellitus with diabetic neuropathy, unspecified; E83.42 Hypomagnesemia; M11.862 Other specified crystal arthropathies, left knee; Z79.899 Other long term (current) drug therapy; J45.909 Unspecified asthma, uncomplicated; K21.9 Gastro-esophageal reflux disease without esophagitis; E78.5 Hyperlipidemia, unspecified; E86.0 Dehydration; G89.29 Other chronic pain; Z79.4 Long term (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; Z88.0 Allergy status to penicillin; Z91.040 Latex allergy status; Z88.2 Allergy status to sulfonamides; Z88.8 Allergy status to other drugs, medicaments and biological substances; Z91.041 Radiographic dye allergy status; Z91.018 Allergy to other foods; Z88.5 Allergy status to narcotic agent; Z88.6 Allergy status to analgesic agent; E87.6 Hypokalemia

== ENCOUNTER 2018-11-30 09:46 | Outpatient (CLI) | payer OTHER ==
[~2018-11-30] VITALS: Ht 170.2 cm; Wt 77.3 kg
[~2018-11-30 09:46] MED LIST changes: +ADVA230A INH; +AZEL0.05 OD; +AZEL1SPR3 NARES; +FLUT1INH3 INH; +LEVOTAB10 PO; +OMNA50SP NARES; -ONDA8TAB10 PO; +ONDA8TAB7 PO; +SIMV20TA2 PO; -SIMV20TA22 PO; +SODIUM CHLORIDE 0.9% INJ 10 ML SYR IV SCH; +STIO1AER IN
[2018-11-30 09:50] VITALS: BP 112/55
== END 2018-11-30 10:30 | disposition home or self-care (01) ==
LOC: M INFU 09:46
PROVIDERS: ATTEND Allergy & Immunology Allergy
DX: D84.9 Immunodeficiency, unspecified (principal); E83.42 Hypomagnesemia; E87.6 Hypokalemia

== ENCOUNTER 2019-01-14 17:25 | Inpatient (IN) | payer OTHER ==
[~2019-01-14] VITALS: Ht 165.1 cm; Wt 77.2 kg
[~2019-01-14 17:25] MED LIST changes: -SODIUM CHLORIDE 0.9% INJ 10 ML SYR IV SCH
[2019-01-14] MEDS ORDERED: MORP20SO3 PO (17:42)
[2019-01-14] MEDS ORDERED: ONDA4INJ48 (17:42)
[2019-01-14] MEDS ORDERED: IPRA0.00 (17:42)
[2019-01-14] MEDS ORDERED: PROM1SYP PO (17:42)
[2019-01-14] MEDS ORDERED: NS 1,000 ML IV ONE (19:30)
[2019-01-14] MEDS ORDERED: PANTOPRAZOLE 40MG INJ (PROTONIX) (C9113) IV ONE (19:30)
[2019-01-14] MEDS ORDERED: ONDANSETRON 4MG/2ML VIAL (J2405) IV ONE (19:30)
[2019-01-14 20:11] LABS: BASO % 0.5 % (0.0-1.0); EOS # 0.2 10^3/uL (0.0-0.5); EOS % 2.4 % (0.0-3.0); HEMATOCRIT 34.3 % (36.0-47.0); LYMPH # 1.3 10^3/uL (1.5-5.0); LYMPH % 21.1 % (24.0-44.0); MEAN CORPUSCULAR HEMOGLOBIN 31.4 pg (27.0-33.0); MEAN CORPUSCULAR HGB CONC 32.1 g/dl (32.0-36.5); MONO # 0.5 10^3/uL (0.0-0.8); MONO % 8.7 % (0.0-5.0); NEUTROPHILS # 4.1 10^3/uL (1.5-8.5); NEUTROPHILS % 66.8 % (36.0-66.0); PLATELET COUNT, AUTOMATED 186 10^3/uL (150-450); WHITE BLOOD COUNT 6.2 10^3/uL (4.0-10.0)
[2019-01-14 20:22] LABS: INR 1.12; PROTHROMBIN TIME 14.1 SECONDS (11.8-14.0)
[2019-01-14] MEDS: HYDROMORPHONE HCL 0.5 MG/ 0.5 ML SYRINGE (J1170 PER 1) IV PRN ×2 (20:31→22:20)
[2019-01-14 20:49] LABS: ALBUMIN 2.7 GM/DL (3.2-5.2); ALT/SGPT 84 U/L (12-78); BILIRUBIN,DIRECT 0.1 MG/DL (0.0-0.2); BILIRUBIN,TOTAL 0.3 MG/DL (0.2-1.0); LIPASE 31 U/L (73-393); TOTAL PROTEIN 6.6 GM/DL (6.4-8.2)
[2019-01-14] MEDS ORDERED: LIDOCAINE 2% JELLY 6 ML SYRINGE TOP ONE (21:00)
[2019-01-14] MEDS ORDERED: CETACAINE SPRAY 5GM TOP ONE (21:00)
[2019-01-14] MEDS ORDERED: LIDOCAINE VISCOUS 2% SOLN 15ML UDC MT ONE (21:15)
[2019-01-14] MEDS ORDERED: METHYLNALTREXONE BROMIDE 12 MG/0.6 ML VIAL (RELISTOR) SC ONE (21:30)
[2019-01-14] MEDS ORDERED: NS 1,000 ML IV SCH (22:00)
[2019-01-14 22:02] LABS: BLOOD UREA NITROGEN < 1 MG/DL (7-18); CALCIUM LEVEL 9.2 MG/DL (8.5-10.1); CARBON DIOXIDE LEVEL 26 MEQ/L (21-32); CHLORIDE LEVEL 103 MEQ/L (98-107); CREATININE FOR GFR 0.42 MG/DL (0.55-1.30); GLOMERULAR FILTRATION RATE > 60.0 (>51); GLUCOSE, FASTING 133 MG/DL (70-100); POTASSIUM SERUM 3.7 MEQ/L (3.5-5.1); SODIUM LEVEL 139 MEQ/L (136-145)
--- NOTE | 2019-01-14 22:18 | HPEPDOC ---
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 Patient recently began hospice care one week ago. She rates her abdominal pain at a 10/10 and describes it as achy and sharp, exacerbated by movement and pressure, and present in all 4 quadrants of her abdomen with radiation to her lower back. She also complains of nausea and vomiting of 2 week onset, most recently vomiting yesterday and today which produced bright red and foul odorous vomit. She states that her vomiting is exacerbated by eating food and states that her diet has largely consisted of mashed potatoes and Jell-O for roughly 2 weeks. She also states that she has lost 5 pounds during the past couple of weeks which she attributes to her decreased dietary intake. She states that she was stung by a bee in her right ear when EMS picked her to bring her to the ER this evening. She also has a history of asthma and states that she's had a dry cough since t his past Friday due to a exacerbation of her asthma. Finally she complains of dysuria of 2 days' duration with associated inability to empty her bladder completely. She denies chest pain, heartburn, palpitations, vision or hearing changes, or shortness of breath. Per ER, upon admission patient was treated with Dilaudid 1 mg for pain, Zofran 4 mg for nausea, pantoprazole 40 mg, NG tube suction for gastric decompression, Relistor for GI dysmotility, albuterol\\ipratropium inhaler for asthma. Sig nificant laboratory values are as follows: Hemoglobin 11.0, hematocrit 34.3, BUN <1, creatinine 0.42, AST and ALTs are 154 and 84 respectively, alkaline phosphatase 155, then 2.7, albumin globulin ratio 0.69, lipase 31. Per review, abdominal x-ray shows distention colonic air indicating constipation however radiology report is pending. Hospitalist team was contacted to admit the patient to the floor for further management and observation. PAST MEDICAL HISTORY: Type 2 diabetes Asthma Hyperlipidemia GERD Nephrolithiasis History of multiple abdominal surgeries Allergic rhinitis Chronic maxillary sinusitis Chronic headaches Chronic pain syndrome Personal history of VTE Abdominal Hernia PAST SURGICAL HISTORY: Scalp tumor removed in 1984 Lumpectomies reported as benign bilateral at 16 and 21 years old of age Total hysterectomy due to ovarian cyst and acetone at 21 years old Bilateral sympathectomy in 1987 80 fistula repair and left leg in 1988 Cholecystectomy in the late SPO 2001 Abdominal hernia repair 2004 Ventral hernia repair 2009 Dorsal column stimulator taken out and new one implanted in February 2010 Small portion of small bowel resected and ventral hernia repair in 2010 Ileostomy 2012 Cyst removed from the right nostril 2012 Repair of 2 hernias repaired stoma in March 2013 Hernia repair 2 in 2013 Parastomal hernia repair in June 2014 She is a port placement in August 2017 Hernia repair 4 stoma reversal in October 2017 Battery replacement for stimulator in February 2018 SOCIAL HISTORY: Marital status: Single Resides in: [place] Children: None Employment: Disabled Tobacco use: Nonsmoker, never smoker ETOH: Denies abuse, no drinks this past year. Illicit drug use: Denies Other relevant social factors: Patient uses corrective lenses and has upper and lower dentures. Patient utilizes a wheelchair for ambulation. FAMILY HISTORY: Father: Alive, cancer, diagnosed with unspecified cerebral artery occlusion with cerebral infarction, other malignant neoplasm of unspecified site. Mother: , of myelodysplastic syndrome; was noted to have CAD, other malignant neoplasm unspecified site Siblings: One brother healthy. 2 brothers with history of diabetes and kidney failure. Children: None ALLERGIES: Patient has extensive reported allergies please see below. REVIEW OF SYSTEMS: CONSTITUTIONAL: Patient reports recent weight loss of 5 pounds in 2 weeks. Patient reports recent fevers and chills. HEENT: Patient reports bee sting in right ear while en route to ER, mild sore throat secondary to recent nonproductive cough. Patient denies acute vision or hearing changes, lymphadenopathy. CARDIOVASCULAR: Patient denies chest pain, heartburn, palpitations, heart fluttering RESPIRATORY: Patient reports dry bark-like cough 2\\2 asthma exacerbation last Friday, asthma, orthopnea requiring 2 pillows to sleep. Denies acute onset shortness of breath. GASTROINTESTINAL: Patient reports Sharp and achy pain rated at 10 out of 10. Pain is sensitive to eat, patient and motion. Patient also reports nausea and vomiting of 2-3 week duration which is exacerbated by eating and which produces bright red vomitus. GENITOURINARY: Patient reports dysuria and feelings of incomplete bladder emptying for the past couple days. Negative for recent urine color change. SKIN: Denies recent trauma to skin, rashes or cyanosis or clubbing. MUSCULOSKELETAL: Denies recent\\acute onset muscle weakness. NEUROLOGICAL: Patient denies recent onset focal deficits, muscle weakness, hyperreflexia, spasticity. Patient reports reflex sympathetic dystrophy in lower extremities bilaterally. HOME MEDICATIONS: Please see below. PHYSICAL EXAMINATION: VITAL SIGNS: Temperature 99.3, pulse 84, respiratory rate 18, blood pressure 136\\62, pulse oximetry 95% on room air. GENERAL APPEARANCE: Patient is a obese female plan and hospital bed in mild distress. HEENT: Adentious (patient wears upper and lower dentures). Right ear negative for swelling or erythema. No lymphadenopathy, erythema, oral lesions, ulcers or plaques noted. EOMI, no scleral icterus. CARDIOVASCULAR: Normal rate and rhythm. Normal S1 and S2 noted. Quiet heart sounds with no murmurs rubs or knocks noted. LUNGS: Lungs clear to auscultation bilaterally with no wheezes, rales or rhonchi CHEST: Infusaport noted in R upper chest ABDOMEN: Abdomen appears distended. Patient tender to palpation in all 4 quadrants with visible left upper quadrant comfort and guarding noted on palpation. Patient also tender to left flank palpation. Numerous scars noted including a midline gastric incision, 2 right upper quadrant scars is noted, colostomy left-sided left abdomen noted. No bruising or organomegaly noted. Ileostomy bag contains orange-colored stool. MUSCULOSKELETAL: Muscle strength 5 out of 5 in upper extremities flexion and extension bilaterally. Lower extremities 4-5 in hip flexion bilaterally. No significant atrophy noted. EXTREMITIES: Scar on left which patient reports is due to VTE excision. No cyanosis or distal clubbing noted. No bruising or rashes noted. tenderness. Radi al and posterior tibial pulses 2+, and equal bilaterally. NEUROLOGICAL: No focal deficits noted. Alert and aware 3. Normal sensorium throughout. No aphasia, facial drooping. PSYCHIATRIC: Mood and affect are appropriate LABORATORY DATA: See below. IMAGING: Abdominal XR: Official read pending MICROBIOLOGY: Please see below. ASSESSMENT: Patient is a 58-year-old female with an extensive past medical history of multiple bowel surgeries, DMII, asthma and GERD. She presented to the emergency department complaining of a 2 day history of abdominal pain in the setting of 1- 2 weeks of nausea and vomiting. NG tube placed while in the emergency department for decompression. Dilaudid given for pain control. Patient will be admitted to PCU for further management and evaluation. PLAN: # Partial Obstruction Pattern Decreased motility likely secondary to chronic opioid use. Patient has been hospitalized with similar symptoms numerous times in the past. The most recent being 11/30. Plan the patient to remain nothing by mouth. Continue with nasogastric tube placed in the emergency department for decompression. Plan for very slow reintroduction of clear liquids and subsequent slow progression to regular diet. Attempt to limit opioid pain medication. 0.5 mg Dilaudid every 4 hours when necessary for pain control Zofran for nausea. Surgery has been consulted and we appreciate their input # Insulin-dependent type 2 diabetes mellitus. Patient is currently nothing by mouth, holding home insulin regimen Fingersticks every 6 hours and sliding scale insulin #Transaminitis Emergency department, patient was found to have a elevated AST/ALT of 154/84. Consider drug induced Continue to monitor with serial CMP's. # Dysuria Patient complaining of chronic dysuria with urinary frequency urgency and hesitancy. UA performed emergency department only demonstrates 1+ leukocyte esterase. Continue to monitor #GERD IV Protonix for prophylaxis and GERD #Asthma Duo nebs every 6 hours as needed # History of short gut syndrome Magnesium level currently pending, if low plan for repletion. Potassium is currently within normal limits # Physical deconditioning PT/OT while patient is hospitalized Palliative care consult # Obesity Likely complicating care DVT PROPHYLAXIS: Rudy's CODE STATUS: CPR/DNI Vital Signs Vital Signs Date Time Temp Pulse Resp B/P (MAP) Pulse Ox O2 Delivery O2 Flow Rate FiO2 01/14/19 20:31 20 01/14/19 18:30 99.3 01/14/19 17:32 103 152/67 94 Room Air Laboratory Data Labs 24H Laboratory Tests 2 01/14/19 20:00: Immature Granulocyte % (Auto) 0.5, White Blood Count 6.2, Red Blood Count 3.50L, Hemoglobin 11.0L, Hematocrit 34.3L, Mean Corpuscular Volume 98.0H, Mean Co rpuscular Hemoglobin 31.4, Mean Corpuscular Hemoglobin Concent 32.1, Red Cell Distribution Width 15.4H, Platelet Count 186, Neutrophils (%) (Auto) 66.8H, Lymphocytes (%) (Auto) 21.1L, Monocytes (%) (Auto) 8.7H, Eosinophils (%) (Auto) 2.4, Basophils (%) (Auto) 0.5, Neutrophils # (Auto) 4.1, Lymphocytes # (Auto) 1.3L, Monocytes # (Auto) 0.5, Eosinophils # (Auto) 0.2, Basophils # (Auto) 0.0, Nucleated Red Blood Cells % (auto) 0.0, Prothrombin Time 14.1H, Prothromb Time International Ratio 1.12, Anion Gap 10, Glomerular Filtration Rate > 60.0, Calcium Level 9.2, Aspartate Amino Transf (AST/SGOT) 154H, Alanine Aminotransferase (ALT/SGPT) 84H, Alkaline Phosphatase 155H, Total Bilirubin 0.3, Direct Bilirubin 0.1, Total Protein 6.6, Albumin 2.7L, Albumin/Globulin Ratio 0.69L, Lipase 31L 01/14/19 21:02: Urine Color YELLOW, Urine Appearance CLEAR, Urine pH 6.0, Urine Specific [place] 1.003, Urine Protein NEGATIVE, Urine Glucose (UA) NEGATIVE, Urine Ketones NEGATIVE, Urine Blood NEGATIVE, Urine Nitrite NEGATIVE, Urine Bilirubin NEGATIVE, Urine Urobilinogen 0.2, Urine Leukocyte Esterase 1+H, Urine WBC (Auto) 2, Urine RBC (Auto) 1, Urine Hyaline Casts (Auto) 0, Urine Bacteria (Auto) NEGATIVE, Urine Squamous Epithelial Cells 1, Urine Sperm (Auto) CBC/BMP Laboratory Tests 01/14/19 20:00 Red Blood Count 3.50 L, Mean Corpuscular Volume 98.0 H, Mean Corpuscular Hemoglobin 31.4, Mean Corpuscular Hemoglobin Concent 32.1, Red Cell Distribution Width 15.4 H, Neutrophils (%) (Auto) 66.8 H, Lymphocytes (%) (Auto) 21.1 L, Monocytes (%) (Auto) 8.7 H, Eosinophils (%) (Auto) 2.4, Basophils (%) (Auto) 0.5, Neutrophils # (Auto) 4.1, Lymphocytes # (Auto) 1.3 L, Monocytes # (Auto) 0.5, Eosinophils # (Auto) 0.2, Basophils # (Auto) 0.0 Microbiology Microbiology 01/14/19 Urine Culture, Received Pending Home Medications Scheduled Amitriptyline HCl (Amitriptyline HCl) 50 Mg Tab, 150 MG PO QHS Amitriptyline HCl (Amitriptyline HCl) 50 Mg Tab, 50 MG PO DAILY Ammonium Lactate (Ammonium Lactate) 12% Cream..g., 1 DOSE TOP BID APPLIED TO FEET Electrolytes/Dextrose (Pediatric Electrolyte Solution) 1,000 Ml Solution, 330 ML PO TID Insulin Aspart Prot/Insuln Asp (Novolog Mix 70-30 Flexpen Syrn) 100 Unit/1 Ml Insuln.pen, 32 UNITS SC DAILY TAKES AT LUNCHTIME Insulin Glargine,Hum.rec.anlog (Toujeo Solostar) 300 Unit/Ml Inj, 70 UNIT SC QAM Lactulose (Lactulose) 10 Gm/15 Ml Noelle, 15 ML PO TID Morphine Sulfate (Morphine Sulfate) 100 Mg/5 Ml Solution, 1 ML PO Q2H Ondansetron HCl/Pf (Ondansetron HCl 4 mg/2 ml Vial) 4 Mg/2 Ml Vial, 4 MG IM BID AT LEAST 8 HOURS APART Sucralfate (Sucralfate) 1 Gm Tablet, 1 GM PO BID CRUSH 1 TABLET; MIX WITH 10-15 ML OF WATER Scheduled PRN Ipratropium/Albuterol Sulfate (Iprat-Albut 0.5-3(2.5) mg/3 ml) 3 Ml Ampul.neb, 3 ML INH Q6H PRN for SHORTNESS OF BREATH Promethazine HCl/Codeine (Promethazine-Codeine Syrup) 473 Ml Syrup, 5 ML PO Q6H PRN for COUGH Allergies Coded Allergies: latex (Verified Allergy, Severe, throat closes, 07/16/18) Penicillins (Verified Allergy, Intermediate, hives, 07/16/18) Sulfa (Sulfonamide Antibiotics) (Verified Allergy, Intermediate, hives, 07/16/18) adhesive tape (Verified Allergy, Intermediate, paper tape - blisters, hives, 07/16/18) azithromycin (Verified Allergy, Intermediate, hives, 07/16/18) ciprofloxacin (Verified Allergy, Intermediate, hives, 07/16/18) gatifloxacin (Verified Allergy, Intermediate, hives, 07/16/18) lorazepam (Verified Allergy, Intermediate, hallucinations, alters mind, 07/16/18) nitrofurantoin (Verified Allergy, Intermediate, hives, 07/16/18) oxycodone (Verified Allergy, Intermediate, hives, 07/16/18) strawberry (Verified Allergy, Intermediate, hives, 07/16/18) tomato (Verified Allergy, Intermediate, hives, 07/16/18) Contrast Media (Verified Allergy, Unknown, throat swelling, 09/14/18) Grape (Verified Allergy, Unknown, GRAPE JUICE, 03/22/17) chlorpromazine (Verified Allergy, Unknown, 07/16/18) colchicine (Verified Allergy, Unknown, 07/16/18) fluphenazine (Verified Allergy, Unknown, 07/16/18) gabapentin (Verified Allergy, Unknown, 07/16/18) grape (Verified Allergy, Unknown, 07/16/18) ipratropium (Verified Allergy, Unknown, 07/16/18) mesoridazine (Verified Allergy, Unknown, 07/16/18) perphenazine (Verified Allergy, Unknown, 07/16/18) prochlorperazine (Verified Allergy, Unknown, 07/16/18) tramadol (Verified Allergy, Unknown, 07/16/18) trifluoperazine (Verified Allergy, Unknown, 07/16/18) iodine (Verified Adverse Reaction, Severe, seizures, 07/16/18) morphine (Verified Adverse Reaction, Severe, severe headache with large doses, 07/16/18) theophylline (Verified Adverse Reaction, Severe, seizures, 07/16/18) codeine (Verified Adverse Reaction, Intermediate, "out of body", 07/16/18) droperidol (Verified Adverse Reaction, Intermediate, "out of body", eyes roll back in head, 07/16/18) hydrocodone (Verified Adverse Reaction, Intermediate, confusion (Vicodin), 07/16/18) lidocaine (Verified Adverse Reaction, Intermediate, increases HR when applied to upper body, 07/16/18) meperidine (Verified Adverse Reaction, Intermediate, "out of body", shaky, 07/16/18) pregabalin (Verified Adverse Reaction, Intermediate, anxiety, shaking, 07/16/18) promethazine (Verified Adverse Reaction, Intermediate, "out of body" - phenothiazines, 07/16/18) propoxyphene (Verified Adverse Reaction, Intermediate, "out of body", 07/16/18) albuterol (Verified Adverse Reaction, Mild, shaky, 07/16/18) aspirin (Verified Adverse Reaction, Mild, ulcers - full strength only, 07/16/18) baclofen (Verified Adverse Reaction, Mild, shaking, 07/16/18) fentanyl (Verified Adverse Reaction, Mild, nervous, 07/16/18) midazolam (Verified Adverse Reaction, Mild, nervous, 07/16/18) red dye (Verified Adverse Reaction, Mild, not a true allergy, please see comments, 07/16/18) Patient states that she becomes anxious if the contents of her ostomy are red, so she tries to avoid. tiagabine (Verified Adverse Reaction, Mild, nervous, 07/16/18) A-FIB/CHADSVASC A-FIB History Current/History of A-Fib/PAF?: No GME ATTESTATION GME ATTESTATION My faculty preceptor for this patient encounter was physically present during the encounter and was fully available. All aspects of the patient interview, examination, medical decision making process, and medical care plan development were reviewed and approved by the faculty preceptor. The faculty preceptor is aware and concurs with the plan as stated in the body of this note and will attest to such by his/her cosignature. ATTENDING NOTE I personally examined at 1010PM, discussed the case with and agree with his findings as documented. MIGUEL PAEZ DO Jan 14, 2019 22:18 RUTH TILLMAN MD Jan 15, 2019 00:44
[2019-01-14] MEDS ORDERED: IPRATROPIUM 0.5MG/ALBUTEROL 2.5MG INH SOL UD 3ML (DUONEB)(J7620) INH PRN (22:30)
[2019-01-14] MEDS ORDERED: IPRA0.00 INH (23:05)
[2019-01-14] MEDS ORDERED: ONDA4INJ48 IM (23:05)
[2019-01-14] MEDS ORDERED: NOVOINJ2 SC (23:05)
[2019-01-14] MEDS ORDERED: AMMO12CR7 TOP (23:05)
[2019-01-14] MEDS ORDERED: SUCR1TAB56 PO (23:05)
[2019-01-14] MEDS ORDERED: [UNRECOGNIZED DRUG - CODE] PO (23:05)
[2019-01-15] MEDS ORDERED: DEXTROSE 50% 50 ML SYRINGE IV PRN
[2019-01-15] MEDS ORDERED: GLUCOSE 4 GM CHEW TABLET PO PRN
[2019-01-15] MEDS ORDERED: GLUCAGON FOR INJ 1 MG VIAL (J1610) SC PRN
[2019-01-15 00:38] LABS: HEMATOCRIT 32.3 % (36.0-47.0); HEMOGLOBIN 10.2 g/dl (12.0-15.5); MEAN CORPUSCULAR HEMOGLOBIN 31.1 pg (27.0-33.0); MEAN CORPUSCULAR HGB CONC 31.6 g/dl (32.0-36.5); MEAN CORPUSCULAR VOLUME 98.5 fl (80.0-96.0); PLATELET COUNT, AUTOMATED 184 10^3/uL (150-450); RED BLOOD COUNT 3.28 10^6/uL (4.00-5.40); WHITE BLOOD COUNT 5.5 10^3/uL (4.0-10.0)
[2019-01-15] MEDS: HYDROMORPHONE HCL 0.5 MG/ 0.5 ML SYRINGE (J1170 PER 1) IV PRN ×3 (00:54→09:09)
[2019-01-15 04:00] VITALS: BP 121/57
[2019-01-15 05:32] LABS: HEMATOCRIT 33.1 % (36.0-47.0); HEMOGLOBIN 10.3 g/dl (12.0-15.5); MEAN CORPUSCULAR HEMOGLOBIN 30.6 pg (27.0-33.0); MEAN CORPUSCULAR HGB CONC 31.1 g/dl (32.0-36.5); MEAN CORPUSCULAR VOLUME 98.2 fl (80.0-96.0); PLATELET COUNT, AUTOMATED 192 10^3/uL (150-450); RED BLOOD COUNT 3.37 10^6/uL (4.00-5.40); WHITE BLOOD COUNT 5.4 10^3/uL (4.0-10.0)
[2019-01-15 05:54] LABS: BLOOD UREA NITROGEN 1 MG/DL (7-18); CALCIUM LEVEL 8.4 MG/DL (8.5-10.1); CARBON DIOXIDE LEVEL 29 MEQ/L (21-32); CHLORIDE LEVEL 105 MEQ/L (98-107); CREATININE FOR GFR 0.34 MG/DL (0.55-1.30); GLOMERULAR FILTRATION RATE > 60.0 (>51); GLUCOSE, FASTING 123 MG/DL (70-100); MAGNESIUM LEVEL 1.4 MG/DL (1.8-2.4); POTASSIUM SERUM 3.6 MEQ/L (3.5-5.1); SODIUM LEVEL 141 MEQ/L (136-145)
[2019-01-15] MEDS: HumaLOG INSULIN (NovoLOG) PER UNIT SC SCH ×5 (05:56→23:14)
--- NOTE | 2019-01-15 08:36 | REP ---
Abdomen series: Six views. History: Abdomen pain. Comparison chest x-ray November 22, 2018. Findings: A right internal jugular vein [id number] catheter is noted in place. There is a dorsal column stimulator lead in the lower thoracic spine. Mild bibasilar linear fibrosis versus discoid atelectasis is seen. Mild cardiomegaly is noted. The lung bases are better aerated than on the November 22, 2018 study. Supine and cross-table lateral views of the abdomen show no evidence of free air. There are multiple scattered surgical clips. A left abdominal enterostomy is seen. There is air in the stomach. No small or large bowel dilation is observed. There is no evidence of free air. Electronically Signed by Skyler Godoy MD 01/15/2019 08:40 A
[2019-01-15] MEDS ORDERED: FLUBLOK(EGG FREE)(QUAD)INFLUENZA VACC 0.5ML SYRINGE (90682)18YRS&OLDER IM ONE (09:00)
--- NOTE | 2019-01-15 11:37 | IPNPDOC ---
Subjective Date Seen The patient was seen on 01/15/19. Subjective Chief Complaint/HPI Pt this morning states that the ED doctor told her she shouldn't be on Hospice and thats why she is here for treatment. She states that her pain was not well controlled at home, that she couldn't wait any longer for Hospice to get further orders to adjust her medications and therefore she called 911. General: Reports: Night Sweats Pulmonary: Reports: Dyspnea Cardiovascular: Denies: Chest Pain, Palpitations Gastrointestinal: Reports: Nausea, Abdominal Pain Neurological: Reports: Weakness Objective Physical Examination General Exam: Positive: Alert, Cooperative, Mild Distress Chest Exam: Positive: Clear to auscultation, Normal air movement Neuro Exam: Positive: Normal Speech Psych Exam: Positive: Mental status NL, Mood NL Assessment /Plan Problems (1) Comfort measures only status Status: Chronic Response to Treatment: Stable Problem Specific Plan: Monitor Clinically Problem Text: Pt is a Hospice pt admitted for Pain Control. She was getting Roxanol 20 mg q2h SL at home prior to calling EMS, will increase to 25 mg for now, then can cont to titrate further. Pt and family at bedside agreeable to the plan. (2) Abdominal pain Status: Chronic (3) Abdominal distention Status: Chronic 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?: No VS, I&O, 24H, Fishbone Vital Signs/I&O Vital Signs Date Time Temp Pulse Resp B/P (MAP) Pulse Ox O2 Delivery O2 Flow Rate FiO2 01/15/19 09:19 20 01/15/19 04:00 95.6 84 121/57 (78) 90 01/14/19 21:55 Room Air I&O- Last 24 Hours up to 6 AM 01/15/19 05:59 Intake Total 1000 ml Output Total 700 ml Balance 300 ml Laboratory Data 24H LABS Laboratory Tests 2 01/14/19 20:00: Immature Granulocyte % (Auto) 0.5, White Blood Count 6.2, Red Blood Count 3.50L, Hemoglobin 11.0L, Hematocrit 34.3L, Mean Corpuscular Volume 98.0H, Mean Corpuscular Hemoglobin 31.4, Mean Corpuscular Hemoglobin Concent 32.1, Red Cell Distribution Width 15.4H, Platelet Count 186, Neutrophils (%) (Auto) 66.8H, Lymphocytes (%) (Auto) 21.1L, Monocytes (%) (Auto) 8.7H, Eosinophils (%) (Auto) 2.4, Basophils (%) (Auto) 0.5, Neutrophils # (Auto) 4.1, Lymphocytes # (Auto) 1.3L, Monocytes # (Auto) 0.5, Eosinophils # (Auto) 0.2, Basophils # (Auto) 0.0, Nucleated Red Blood Cells % (auto) 0.0, Prothrombin Time 14.1H, Prothromb Time International Ratio 1.12, Anion Gap 10, Glomerular Filtration Rate > 60.0, Calcium Level 9.2, Aspartate Amino Transf (AST/SGOT) 154H, Alanine Aminotransferase (ALT/SGPT) 84H, Alkaline Phosphatase 155H, Total Bilirubin 0.3, Direct Bilirubin 0.1, Total Protein 6.6, Albumin 2.7L, Albumin/Globulin Ratio 0.69L, Lipase 31L 01/14/19 21:02: Urine Color YELLOW, Urine Appearance CLEAR, Urine pH 6.0, Urine Specific [place] 1.003, Urine Protein NEGATIVE, Urine Glucose (UA) NEGATIVE, Urine Ketones NEGATIVE, Urine Blood NEGATIVE, Urine Nitrite NEGATIVE, Urine Bilirubin NEGATIVE, Urine Urobilinogen 0.2, Urine Leukocyte Esterase 1+H, Urine WBC (Auto) 2, Urine RBC (Auto) 1, Urine Hyaline Casts (Auto) 0, Urine Bacteria (Auto) NEGATIVE, Urine Squamous Epithelial Cells 1, Urine Sperm (Auto) 01/15/19 00:14: Nucleated Red Blood Cells % (auto) 0.0 01/15/19 00:57: Bedside Glucose (Misc Panel) 133H 01/15/19 05:10: Nucleated Red Blood Cells % (auto) 0.0, Anion Gap 7L, Glomerular Filtration Rate > 60.0, Blood Urea Nitrogen 1L, Creatinine 0.34L, Sodium Level 141, Potassium Level 3.6, Chloride Level 105, Carbon Dioxide Level 29, Calcium Level 8.4L, Magnesium Level 1.4L CBC/BMP Laboratory Tests 01/14/19 20:00 Red Blood Count 3.50 L, Mean Corpuscular Volume 98.0 H, Mean Corpuscular Hemoglobin 31.4, Mean Corpuscular Hemoglobin Concent 32.1, Red Cell Distribution Width 15.4 H, Neutrophils (%) (Auto) 66.8 H, Lymphocytes (%) (Auto) 21.1 L, Monocytes (%) (Auto) 8.7 H, Eosinophils (%) (Auto) 2.4, Basophils (%) (Auto) 0.5, Neutrophils # (Auto) 4.1, Lymphocytes # (Auto) 1.3 L, Monocytes # (Auto) 0.5, Eosinophils # (Auto) 0.2, Basophils # (Auto) 0.0 01/15/19 00:14 Red Blood Count 3.28 L, Mean Corpuscular Volume 98.5 H, Mean Corpuscular Hemoglobin 31.1, Mean Corpuscular Hemoglobin Concent 31.6 L, Red Cell Distribution Width 15.3 H 01/15/19 05:10 Red Blood Count 3.37 L, Mean Corpuscular Volume 98.2 H, Mean Corpuscular Hemoglobin 30.6, Mean Corpuscular Hemoglobin Concent 31.1 L, Red Cell Distribution Width 15.4 H, Calcium Level 8.4 L Microbiology Microbiology 01/14/19 Urine Culture, Received Pending ARELY MARC PA-C Jan 15, 2019 11:37
[2019-01-15] MEDS: MORPHINE 10MG/0.5ML ORAL CONCENTRATE SOLUTION U/D SL PRN ×3 (12:18→23:12)
--- NOTE | 2019-01-15 12:42 | CR ---
DATE OF CONSULTATION: 01/14/2019 REASON FOR CONSULTATION: Abdominal pain. HISTORY OF PRESENT ILLNESS: The patient is a 58-year-old female, well-known to our service, who has had multiple abdominal surgeries and admissions for bowel obstruction in the past. She apparently decided to go hospice and went hospice about a week ago due to the fact that there is no more surgical intervention that is appropriate for her and her pain has been out of control and she just cannot live with the persistent obstruction. However, due to the increasing pain, nausea, vomiting over the last 3 days she decided to come back into emergency room. Labs in the emergency room (ER) were normal. X-ray was normal. However, her abdomen was distended and with her nausea and vomiting and no ostomy output in a couple of days she was admitted to the medicine service. I was called to evaluate for possible bowel obstruction. PAST MEDICAL HISTORY: 1. Diabetes. 2. Asthma. 3. Hyperlipidemia. 4. Gastroesophageal reflux disease. 5. Kidney stones. 6. Headaches. 7. Chronic pain syndrome. PAST SURGICAL HISTORY: 1. Extensive including scalp tumor removal. 2. Lumpectomies. 3. Hysterectomy. 4. Bilateral sympathectomy. 5. Leg fistula repair. 6. Cholecystectomy. 7. Small bowel obstruction repairs. 8. Abdominal hernia repairs. 9. Ventral hernia repairs. 10. Dorsal column stimulator removal and replacement. 11. Three ventral hernia repairs. 12. Colostomy repair. 13. Colostomy reversals. SOCIAL HISTORY: Denies drug, alcohol, tobacco abuse. FAMILY HISTORY: Noncontributory. ALLERGIES AND MEDICATIONS: Please see med rec. REVIEW OF SYSTEMS: Pertinent positives and negatives as stated in the history of present illness (HPI). PHYSICAL EXAMINATION: General: Alert and oriented times three. No acute distress. Vital signs: Temperature 95.6, pulse 84, respirations 18, blood pressure 121/57, pulse oximetry 98% room air. HEENT: Pupils equal, round and react to light and accommodation. Heart: S1, S2, regular rate and rhythm. Lungs: Clear to auscultation bilaterally. Abdomen: Soft, distended, slight tenderness diffusely. No rebound, guarding or rigidity. Extremities: No clubbing, cyanosis or edema. LABS: White count 5.4, hemoglobin 10.3, platelets 192. Potassium 3.6, creatinine 0.34, magnesium 1.4. IMAGING: Abdominal x-ray obtained in the emergency room shows multiple surgical clips, left abdominal enterostomy. There is air in the stomach. No small or large bowel dilation observed. No evidence of free air. ASSESSMENT AND PLAN: The patient is a 58-year-old female with history of multiple abdominal surgeries, short bowel syndrome presenting with recurrent partial versus complete small bowel obstruction. Recommendation is to continue with current management, nasogastric (NG) tube, IV fluids and decompression. She has had this multiple times in the past and this usually will improve her symptoms. I explained to her that there is not much we can do with her being hospice. She would have to be taken off of hospice to do any type of surgical intervention during this stay. She does not care. She just wants whatever has to be done, done. I am not convinced that this hospice plan for her was appropriate. However, that is just from what she is telling me and have not had a chance to talk to her primary about it yet. Regardless, at this point, there is no surgical intervention necessary. Continue with conservative management, and Dr. Campuzano we will see her when he returns next week.
[2019-01-15] MEDS: ONDANSETRON 4MG/2ML VIAL (J2405) IV PRN ×2 (17:41→23:13)
[2019-01-16] MEDS: MORPHINE 10MG/0.5ML ORAL CONCENTRATE SOLUTION U/D SL PRN ×2 (01:45→05:18)
[2019-01-16] MEDS: HumaLOG INSULIN (NovoLOG) PER UNIT SC SCH ×3 (05:18→16:52)
[2019-01-16] MEDS: ONDANSETRON 4MG/2ML VIAL (J2405) IV PRN ×4 (05:18→21:01)
[2019-01-16] MEDS ORDERED: HYDROmorphone HCL 2 MG/ML 1ML VIAL (J1170) IV PRN (11:30)
--- NOTE | 2019-01-16 12:21 | IPNPDOC ---
Subjective Date Seen The patient was seen on 01/16/19. Subjective Chief Complaint/HPI Rich is still in significant abdominal pain. She reports that the higher doses of morphine (he current dose is 25mg Q2h) are giving her nightmares; specifically, she is dreaming of the time around her mother's and is tortu red with the sadness she experienced around that time. This is consistent with her. She has had nightmares on higher doses of morphine in the past. She has tolerated Dilaudid well in those circumstances. She is asking that we use Dilaudid to treat her pain now. General: Denies: Normal Appetite Constitutional: Denies: Chills, Fever Pulmonary: Denies: Dyspnea, Cough Cardiovascular: Denies: Chest Pain, Palpitations Gastrointestinal: Reports: Abdominal Pain Psych: Reports: Depression Objective Physical Examination General Exam: Positive: Alert, Cooperative, Moderate Distress (seems to be pain related) Eye Exam: Negative: Sclera icteric ENT Exam: Negative: Atraumatic, Mucous membr. moist/pink (mild/moderately dry) Chest Exam: Positive: Clear to auscultation, Normal air movement Abdomen Exam: Positive: BS Hypoactive, Tenderness, Hernia (para-stomal hernia causing the pain), Other (abdomen is distended) Extremity Exam: Negative: Edema Neuro Exam: Positive: Normal Speech Psych Exam: Positive: Anxiety; Negative: Mood NL Assessment /Plan Problems (1) Abdominal pain Status: Chronic Problem Text: This is related to recurrent parastomal hernias. Surgery has said that they will not operate on her unless her life is acutely threatened by a small bowel obstruction as they know that any repair they do will not last. The tissues are not good enough to hold a repair for very long and another hernia will develop. The patient has said that she does not want to undergo any other surgeries; she understands that they are not life saving. I personally had a long conversation with her about treatment options and she has selected Hospice care at home and expects that she will of this in the next few weeks or months. 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 She is requesting we change her to Dilaudid. I discussed oral (which will need to be what she does at home) vs. IV and she wants IV for now. I have reduces her morphine equivalents from 25MED Q2h to ~11MED Q2h in ordering her Dilaudid 1.5mg IV. I will see how this does does for her. Perhaps without the agitation from the hallucinations, a lower MED will work to control her pain. If not, I will judiciously increase her dose; she is NOT opioid naive. Another option would be to augment the Dilaudid with a Butrans patch since buprenorphine has a therapeutic ceiling, but I'd like to stick with the Dilaudid for now. I do not feel that it is in the patient's or our best interests to change her to a different floor. I feel that it will be painful and disruptive to the patient's care. If there were a compelling safety or life preserving indication for doing so, I would completely agree. Our goal is not extension and preservation of life, but maximization of comfort. My assessment is it would be a waste of system resources to move her to a higher level of care if we are not working to preserve or extend her life. I will order her transfer to a higher level of care if I must per policy/protocol, but I do not think it is needed or desirable in this situation. 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?: No Plan Medications: Change to IV Respiratory: Other Respiratory (Masimo monitoring) Anticipated Discharge: Hospice Advance Directives: Comfort care VS, I&O, 24H, Fishbone Vital Signs/I&O Vital Signs Date Time Temp Pulse Resp B/P (MAP) Pulse Ox O2 Delivery O2 Flow Rate FiO2 01/16/19 05:48 20 01/15/19 04:00 95.6 84 121/57 (78) 90 01/14/19 21:55 Room Air I&O- Last 24 Hours up to 6 AM 01/16/19 05:59 Intake Total 0 ml Output Total 850 ml Balance -850 ml Laboratory Data 24H LABS Laboratory Tests 2 01/15/19 17:44: Bedside Glucose (Misc Panel) 163H 01/15/19 23:11: Bedside Glucose (Misc Panel) 121H 01/16/19 05:11: Bedside Glucose (Misc Panel) 97 Microbiology Microbiology 01/14/19 Urine Culture - Final, Complete Tutu Sanchez MD Jan 16, 2019 12:21
[2019-01-16] MEDS: HYDROmorphone HCL 2 MG/ML 1ML VIAL (J1170) IV PRN ×3 (16:26→23:14)
[2019-01-16 19:00] VITALS: O2SAT 94
[2019-01-16] MEDS: NS 1,000 ML IV SCH (20:32)
[2019-01-16] MEDS ORDERED: AMITRIPTYLINE 50 MG TAB NG SCH (21:00)
[2019-01-16] MEDS: diphenhydrAMINE CREAM 30GM TOP PRN (22:07)
[2019-01-17] MEDS: HYDROmorphone HCL 2 MG/ML 1ML VIAL (J1170) IV PRN ×9 (01:53→21:26)
[2019-01-17] MEDS: ONDANSETRON 4MG/2ML VIAL (J2405) IV PRN ×5 (01:53→18:56)
[2019-01-17 06:00] VITALS: BP 113/67
[2019-01-17] MEDS: HumaLOG INSULIN (NovoLOG) PER UNIT SC SCH ×4 (06:00→18:00)
[2019-01-17] MEDS ORDERED: AMITRIPTYLINE 50 MG TAB NG SCH (09:00)
[2019-01-17] MEDS: NS 1,000 ML IV SCH ×2 (09:50→21:25)
[2019-01-17 14:00] VITALS: BP 124/61
--- NOTE | 2019-01-17 19:07 | IPNPDOC ---
Subjective Date Seen The patient was seen on 01/17/19. Subjective Chief Complaint/HPI Her pain is reportedly better controlled on 2 mg of Dilaudid IV every 2 hours. She is proud that she stretched it out to 3 hours one time. She reports she feels better as the morphine leaves her system. She'd like to try getting rid of her NG tube. I think this is a good idea since we will need to get her taking by mouth medications to be able to go home. She expresses some frustration with Hospice's care and wonders if she should return home with them. She's not interested in changing her goals of treatment; she still wishes to be palliative care, she just isn't sure if she wants to receive this through Hospice. Constitutional: Reports: Weakness Skin: Reports: Lesions (abscess/boil on her left breast) Pulmonary: Denies: Cough Cardiovascular: Denies: Chest Pain, Palpitations Gastrointestinal: Reports: Nausea, Abdominal Pain (reportedly improved once she is better hydrated) Genitourinary: Denies: Dysuria Psych: Reports: Anxiety, Depression Objective Physical Examination General Exam: Positive: Alert, Cooperative, No Acute Distress Eye Exam: Negative: Sclera icteric ENT Exam: Positive: Mucous membr. moist/pink Neck Exam: Positive: Supple; Negative: Lymphadenopathy Chest Exam: Positive: Clear to auscultation, Normal air movement Heart Exam: Positive: Rate Normal, Normal S1, Normal S2; Negative: Murmurs Abdomen Exam: Positive: BS Hypoactive, Tenderness, Hernia (para-stomal hernia causing the pain), Other (abdomen is distended) Extremity Exam: Negative: Edema Skin Exam: Positive: Lesion (there is an abscess/boil on her left breast. Appears to be draining scant purulent material) Neuro Exam: Positive: Normal Speech Psych Exam: Positive: Anxiety; Negative: Mood NL Assessment /Plan Problems (1) Abdominal pain Status: Chronic Problem Text: This is related to recurrent parastomal hernias. Surgery has said that they will not operate on her unless her life is acutely threatened by a small bowel obstruction as they know that any repair they do will not last. The tissues are not good enough to hold a repair for very long and another hernia will develop. The patient has said that she does not want to undergo any other surgeries; she understands that they are not life saving. I personally had a long conversation with her about treatment options and she has selected Hospice care at home and expects that she will of this in the next few weeks or months. 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 We need to work this into a an oral regimen, but first she needs to be able to tolerate by mouth meds. I did pull her NG tube this evening. Hopefully it will not be need to be replaced overnight. We discussed the possibility of going home with the palliative care referral versus with hospice care. I honestly think she would still do best under Hospice's care, but she will do better with a female caring for her. Her mother cared for her whole life, because of this she has some confusion with men providing her care. 01/16/19 - The high dose morphine is giving her nightmares. She is requesting we change her to Dilaudid. I discussed oral (which will need to be what she does at home) vs. IV and she wants IV for now. I have reduces her morphine equivalents from 25MED Q2h to ~11MED Q2h in ordering her Dilaudid 1.5mg IV. I will see how this does does for her. Perhaps without the agitation from the hallucinations, a lower MED will work to control her pain. If not, I will judiciously increase her dose; she is NOT opioid naive. Another option would be to augment the Dilaudid with a Butrans patch since buprenorphine has a therapeutic ceiling, but I'd like to stick with the Dilaudid for now. I do not feel that it is in the patient's or our best interests to change her to a different floor. I feel that it will be painful and disruptive to the patient's care. If there were a compelling safety or life preserving indication for doing so, I would completely agree. Our goal is not extension and preservation of life, but maximization of comfort. My assessment is it would be a waste of system resources to move her to a higher level of care if we are not working to preserve or extend her life. I will order her transfer to a higher level of care if I must per policy/protocol, but I do not think it is needed or desirable in this situation. 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) Plan Medications: Change to PO Respiratory: Other Respiratory (Masimo monitoring) Anticipated Discharge: Hospice Advance Directives: Comfort care VS, I&O, 24H, Fishbone Vital Signs/I&O Vital Signs Date Time Temp Pulse Resp B/P (MAP) Pulse Ox O2 Delivery O2 Flow Rate FiO2 01/17/19 14:00 98.2 84 13 124/61 (82) 95 01/16/19 19:00 Room Air I&O- Last 24 Hours up to 6 AM 01/17/19 06:00 Intake Total 750 ml Output Total 850 ml Balance -100 ml Laboratory Data 24H LABS Laboratory Tests 2 01/16/19 23:27: Bedside Glucose (Misc Panel) 136H 01/17/19 06:33: Bedside Glucose (Misc Panel) 141H 01/17/19 11:16: Bedside Glucose (Misc Panel) 112H 01/17/19 18:06: Bedside Glucose (Misc Panel) 130H Microbiology Microbiology 01/14/19 Urine Culture - Final, Complete Tutu Sanchez MD Jan 17, 2019 7:07 pm
[2019-01-17] MEDS: MAG SULF 1GM/100ML (MAG RUN) 1 GM in IV 1 EA IV SCH ×2 (20:10→21:25)
[2019-01-17 21:00] VITALS: O2SAT 92
[2019-01-17] MEDS: AMITRIPTYLINE 50 MG TAB PO SCH (21:25)
[2019-01-17 22:00] VITALS: BP 130/64
[2019-01-18] MEDS: HumaLOG INSULIN (NovoLOG) PER UNIT SC SCH ×4 (00:33→18:12)
[2019-01-18] MEDS: ONDANSETRON 4MG/2ML VIAL (J2405) IV PRN ×2 (01:38→20:28)
[2019-01-18] MEDS: HYDROmorphone HCL 2 MG/ML 1ML VIAL (J1170) IV PRN ×3 (01:38→08:37)
[2019-01-18] MEDS: diphenhydrAMINE CREAM 30GM TOP PRN ×4 (04:43→20:42)
[2019-01-18 06:00] VITALS: BP 92/53
[2019-01-18 07:28] LABS: HEMOGLOBIN 9.7 g/dl (12.0-15.5); MEAN CORPUSCULAR HEMOGLOBIN 30.7 pg (27.0-33.0); MEAN CORPUSCULAR HGB CONC 31.3 g/dl (32.0-36.5); MEAN CORPUSCULAR VOLUME 98.1 fl (80.0-96.0); PLATELET COUNT, AUTOMATED 187 10^3/uL (150-450); RED BLOOD COUNT 3.16 10^6/uL (4.00-5.40); WHITE BLOOD COUNT 5.4 10^3/uL (4.0-10.0)
[2019-01-18 08:00] VITALS: O2SAT 94
[2019-01-18 08:03] LABS: ALBUMIN 2.3 GM/DL (3.2-5.2); ALT/SGPT 45 U/L (12-78); BILIRUBIN,TOTAL 0.3 MG/DL (0.2-1.0); BLOOD UREA NITROGEN 3 MG/DL (7-18); CALCIUM LEVEL 8.3 MG/DL (8.5-10.1); CARBON DIOXIDE LEVEL 24 MEQ/L (21-32); CHLORIDE LEVEL 107 MEQ/L (98-107); CREATININE FOR GFR 0.33 MG/DL (0.55-1.30); GLOMERULAR FILTRATION RATE > 60.0 (>51); GLUCOSE, FASTING 92 MG/DL (70-100); MAGNESIUM LEVEL 1.7 MG/DL (1.8-2.4); SODIUM LEVEL 142 MEQ/L (136-145); TOTAL PROTEIN 5.8 GM/DL (6.4-8.2)
[2019-01-18] MEDS: MUPIROCIN 2% OINT 22 GM TUBE TOP SCH ×2 (09:00→20:41)
--- NOTE | 2019-01-18 10:45 | IPNPDOC ---
Subjective Date Seen The patient was seen on 01/18/19. Subjective Chief Complaint/HPI Pt this morning states that she is feeling better, her pain is better controlled. Her father and cousin are at bedside. Darinel her cousin provides most of her care at home. Rich states that she doesn't want to go back home on Hospice. She states that she doesn't feel as though her nurse Toribio is supportive of her decisions and takes her needs seriously enough. She also feels he doesn't respond as quickly as she would like. I talked with her about the goals of a Hospice nurse and also his communication with her PCP and therefore a delay in response as a result of that and she seemed more understanding. Her father and cousin have no concerns with the care that has been delivered thus far. They feel they need Hospice support to bring her back home. Ultimately Rich agrees to give Hospice another chance on her transition home. I also suggested they consider the Hospice house where nursing is present 04/11 to help with Rich's needs. General: Denies: Fatigue Gastrointestinal: Denies: Nausea, Vomiting, Abdominal Pain Genitourinary: Denies: Dysuria Objective Physical Examination General Exam: Positive: Alert, Cooperative, No Acute Distress Neck Exam: Positive: Lymphadenopathy Chest Exam: Positive: Clear to auscultation, Normal air movement Heart Exam: Positive: Rate Normal, Normal S1, Normal S2; Negative: Murmurs Abdomen Exam: Positive: BS Hypoactive, Tenderness, Hernia (para-stomal hernia causing the pain), Other (abdomen is mildly distended) Extremity Exam: Negative: Edema Neuro Exam: Positive: Normal Speech Psych Exam: Positive: Anxiety; Negative: Mood NL Assessment /Plan Problems (1) Abdominal pain Status: Chronic Problem Text: 01/18 Rich is agreeable to Hospice, she thinks palliative care is appropriate, just has concerns about care delivery, which we will work on with Hospice. Will transition for IV Dilaudid to PO today, I have spoke with Jadyn in the pharmacy and am waiting to hear back on from her on recommendations for transition based on dosing and current IV use. 01/18 This is related to recurrent parastomal hernias. Surgery has said that they will not operate on her unless her life is acutely threatened by a small bowel obstruction as they know that any repair they do will not last. The tissues are not good enough to hold a repair for very long and another hernia will develop. The patient has said that she does not want to undergo any other surgeries; she understands that they are not life saving. I personally had a l migel conversation with her about treatment options and she has selected Hospice care at home and expects that she will of this in the next few weeks or months. 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 We need to work this into a an oral regimen, but first she needs to be able to tolerate by mouth meds. I did pull her NG tube this evening. Hopefully it will not be need to be replaced overnight. We discussed the possibility of going home with the palliative care referral versus with hospice care. I honestly think she would still do best under Hospice's care, but she will do better with a female caring for her. Her mother cared for her whole life, because of this she has some confusion with men providing her care. 01/16/19 - The high dose morphine is giving her nightmares. She is requesting we change her to Dilaudid. I discussed oral (which will need to be what she does at home) vs. IV and she wants IV for now. I have reduces her morphine equivalents from 25MED Q2h to ~11MED Q2h in ordering her Dilaudid 1.5mg IV. I will see how this does does for her. Perhaps without the agitation from the hallucinations, a lower MED will work to control her pain. If not, I will judiciously increase her dose; she is NOT opioid naive. Another option would be to augment the Dilaudid with a Butrans patch since buprenorphine has a therapeutic ceiling, but I'd like to stick with the Dilaudid for now. I do not feel that it is in the patient's or our best interests to change her to a different floor. I feel that it will be painful and disruptive to the patient's care. If there were a compelling safety or life preserving indication for doing so, I would completely agree. Our goal is not extension and prese rvation of life, but maximization of comfort. My assessment is it would be a waste of system resources to move her to a higher level of care if we are not working to preserve or extend her life. I will order her transfer to a higher level of care if I must per policy/protocol, but I do not think it is needed or desirable in this situation. 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) Plan Medications: Change to PO Respiratory: Other Respiratory (Masimo monitoring) Anticipated Discharge: Hospice Advance Directives: Comfort care VS, I&O, 24H, Fishbone Vital Signs/I&O Vital Signs Date Time Temp Pulse Resp B/P (MAP) Pulse Ox O2 Delivery O2 Flow Rate FiO2 01/18/19 08:37 16 01/18/19 06:00 96.7 69 92/53 (66) 94 01/17/19 21:00 Room Air I&O- Last 24 Hours up to 6 AM 01/18/19 06:00 Intake Total 875 ml Output Total 175 ml Balance 700 ml Laboratory Data 24H LABS Laboratory Tests 2 01/17/19 11:16: Bedside Glucose (Misc Panel) 112H 01/17/19 18:06: Bedside Glucose (Misc Panel) 130H 01/17/19 23:41: Bedside Glucose (Misc Panel) 168H 01/18/19 05:38: Bedside Glucose (Misc Panel) 101 01/18/19 07:00: Nucleated Red Blood Cells % (auto) 0.0, Anion Gap 11, Glomerular Filtration Rate > 60.0, Blood Urea Nitrogen 3L, Creatinine 0.33L, Sodium Level 142, Potassium Level 3.0L, Chloride Level 107, Carbon Dioxide Level 24, Calcium Level 8.3L, Aspartate Amino Transf (AST/SGOT) 50H, Alanine Aminotransferase (ALT/SGPT) 45, Alkaline Phosphatase 110, Total Bilirubin 0.3, Total Protein 5.8L, Albumin 2.3L, Magnesium Level 1.7L, Albumin/Globulin Ratio 0.66L CBC/BMP Laboratory Tests 01/18/19 07:00 Red Blood Count 3.16 L, Mean Corpuscular Volume 98.1 H, Mean Corpuscular Hemoglobin 30.7, Mean Corpuscular Hemoglobin Concent 31.3 L, Red Cell Distribution Width 15.2 H, Calcium Level 8.3 L, Aspartate Amino Transf (AST/ SGOT) 50 H, Alanine Aminotransferase (ALT/SGPT) 45, Alkaline Phosphatase 110, Total Bilirubin 0.3, Total Protein 5.8 L, Albumin 2.3 L Microbiology Microbiology 01/14/19 Urine Culture - Final, Complete ARELY MARC PA-C Jan 18, 2019 10:45
[2019-01-18] MEDS: AMITRIPTYLINE 50 MG TAB PO SCH ×2 (11:13→20:28)
[2019-01-18] MEDS: HYDROmorphone 2 MG TAB PO PRN ×3 (12:01→20:27)
[2019-01-18 14:00] VITALS: BP 141/89
[2019-01-18] MEDS: SODIUM CHLORIDE 0.9% INJ 10 ML SYR IV PRN (20:41)
[2019-01-18] MEDS ORDERED: HumaLOG INSULIN (NovoLOG) PER UNIT SC SCH (21:00)
[2019-01-18 22:00] VITALS: BP 117/58
[2019-01-19] MEDS: HYDROmorphone 2 MG TAB PO PRN ×3 (02:53→09:27)
[2019-01-19] MEDS: ONDANSETRON 4MG/2ML VIAL (J2405) IV PRN (04:15)
[2019-01-19] MEDS: SODIUM CHLORIDE 0.9% INJ 10 ML SYR IV PRN ×2 (04:16→10:30)
[2019-01-19 06:00] VITALS: BP 97/55
[2019-01-19] MEDS ORDERED: HumaLOG INSULIN (NovoLOG) PER UNIT SC SCH (07:30)
[2019-01-19] MEDS: MUPIROCIN 2% OINT 22 GM TUBE TOP SCH (09:00)
[2019-01-19] MEDS ORDERED: DILA2TAB6 PO (09:18)
[2019-01-19] MEDS: AMITRIPTYLINE 50 MG TAB PO SCH (09:27)
--- NOTE | 2019-01-19 18:35 | DSES ---
DATE OF ADMISSION: 01/14/2019 DATE OF DISCHARGE: 01/19/2019 PRIMARY CARE PHYSICIAN: Dr. Tutu Sanchez ATTENDING: Dr. Yosi Jiménez HISTORY: This is a 58-year-old female patient who was admitted to the hospital after calling emergency medical services (EMS) with poorly controlled pain at home. She is a hospice patient who was admitted for pain management. During her hospitalization, she has remained medically stable. Her pain control has been initially controlled with intravenous (IV) morphine then transitioned over to IV Dilaudid, as she developed hallucinations and nightmares on higher doses of morphine. Subsequently, she has been transitioned from IV Dilaudid to oral and seems to be tolerating this well. Her plan is to return home with hospice. She does have concerns about the hospice nurse that was working with her and whether he was attentive in meeting her needs. I encouraged her to give this another opportunity, and if still she remained unhappy, then we could talk with hospice about potentially seeing if there is another nurse available to assume her case, and the patient was agreeable to this. DISCHARGE DIAGNOSIS: Uncontrolled pain with abdominal distention. DISCHARGE MEDICATIONS: - Dilaudid 8 mg every 3 hours as needed for pain, maximum daily dose is 64 mg. Conversion from her IV use was 7.5-10 mg every 2-3 hours. - amitriptyline 150 mg before bed and 50 mg daily - ammonium lactate topically twice daily - Pedialyte 330 mL by mouth three times a day - NovoLog sliding scale - Toujeo 70 units subcutaneous every morning - DuoNeb inhaled every 6 hours as needed for shortness of breath - lactulose 15 mL by mouth three times a day - Zofran solution 4 mg intramuscular (IM) twice a day - promethazine with codeine 5 mL by mouth every 6 hours as needed for cough - Carafate 1 gram by mouth twice a day DISCHARGE PLAN: Followup with hospice in the outpatient setting. She has been advised she can call the office with questions or concerns.
== END 2019-01-19 10:50 | disposition hospice, home (50) | DRG 92 ==
LOC: EDBD 17:25 → M ED 17:25 → M ED INP 22:00 → M PCU 23:25 → M MSPAV 01-16 09:12
PROVIDERS: ADMIT Internal Medicine; ATTEND Family Medicine
DX: G89.29 Other chronic pain (principal); K56.600 Partial intestinal obstruction, unspecified as to cause; K91.2 Postsurgical malabsorption, not elsewhere classified; E11.9 Type 2 diabetes mellitus without complications; R74.0 Nonspecific elevation of levels of transaminase and lactic acid dehydrogenase [LDH]; E66.9 Obesity, unspecified; Z68.28 Body mass index [BMI] 28.0-28.9, adult; K43.5 Parastomal hernia without obstruction or gangrene; Z51.5 Encounter for palliative care; Z79.899 Other long term (current) drug therapy; E78.5 Hyperlipidemia, unspecified; K21.9 Gastro-esophageal reflux disease without esophagitis; J45.909 Unspecified asthma, uncomplicated; F11.90 Opioid use, unspecified, uncomplicated; Z79.4 Long term (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; Z91.040 Latex allergy status; Z88.0 Allergy status to penicillin; Z88.2 Allergy status to sulfonamides; Z88.8 Allergy status to other drugs, medicaments and biological substances; Z91.038 Other insect allergy status; Z88.5 Allergy status to narcotic agent; Z93.3 Colostomy status

== ENCOUNTER 2019-02-23 13:48 | Outpatient (CLI) | payer OTHER ==
[~2019-02-23] VITALS: Ht 165.1 cm; Wt 77.2 kg
[~2019-02-23 13:48] MED LIST changes: +AMMO12CR7 TOP; +IPRA0.00; +IPRA0.00 INH; +MORP20SO3 PO; +NOVOINJ2 SC; +ONDA4INJ48; +PROM1SYP PO; -SIMV20TA2 PO; +SIMV20TA22 PO; +[UNRECOGNIZED DRUG - CODE] PO
[2019-02-23] MEDS ORDERED: SODIUM CHLORIDE 0.9% INJ 10 ML SYR IV ONE (14:00)
[2019-02-23 14:15] VITALS: BP 159/77
== END 2019-02-23 14:35 | disposition home or self-care (01) ==
LOC: M INFU 13:48
PROVIDERS: ATTEND Family Medicine
DX: Z95.9 Presence of cardiac and vascular implant and graft, unspecified (principal)

== ENCOUNTER 2019-02-28 15:06 | Inpatient (IN) | payer OTHER ==
[~2019-02-28 15:06] MED LIST changes: +SIMV20TA2 PO; -SIMV20TA22 PO; +SODIUM CHLORIDE 0.9% INJ 10 ML SYR IV SCH
--- NOTE | 2019-02-28 16:42 | REP ---
Abdomen series: Three views. History: Abdomen pain. Vomiting. No bowel movement. Question obstruction. Findings: Supine AP and cross-table lateral views of the chest show a right internal jugular [id number] catheter and a dorsal column stimulator in place unchanged from January 14, 2019 radiographs. Heart is enlarged. There is some bibasilar linear fibrosis. No new infiltrate. Supine and cross-table lateral views of the abdomen show no evidence of free intraperitoneal air. There is a left abdominal enterostomy ring again noted. Scattered surgical clips are observed. The bowel gas pattern is otherwise unremarkable. Impression: No acute abnormality. Electronically Signed by Skyler Godoy MD 02/28/2019 04:33 P
[2019-02-28] MEDS ORDERED: HYDROMORPHONE HCL 0.5 MG/ 0.5 ML SYRINGE (J1170 PER 1) IV ONE ×2 (17:00→19:00)
[2019-02-28] MEDS ORDERED: ONDANSETRON 4MG/2ML VIAL (J2405) IV ONE (17:00)
[2019-02-28] MEDS ORDERED: DEXTROSE 50% 50 ML SYRINGE IV PRN (17:30)
[2019-02-28] MEDS ORDERED: GLUCOSE 4 GM CHEW TABLET PO PRN (17:30)
[2019-02-28] MEDS ORDERED: HYDROMORPHONE HCL 0.5 MG/ 0.5 ML SYRINGE (J1170 PER 1) IV PRN (17:30)
[2019-02-28] MEDS ORDERED: GLUCAGON FOR INJ 1 MG VIAL (J1610) SC PRN (17:30)
[2019-02-28] MEDS ORDERED: LIDOCAINE 2% 5ML JELLY UROJET As Ordered ONE (17:34)
[2019-02-28] MEDS ORDERED: LIDOCAINE 2% 5ML JELLY UROJET TOP ONE (18:00)
[2019-02-28] MEDS: D5W/0.45% SODIUM CHLORIDE 1,000 ML IV SCH (18:41)
[2019-02-28] MEDS ORDERED: DOXY100C PO (18:46)
[2019-02-28] MEDS ORDERED: DILA4TAB13 PO (18:46)
[2019-02-28] MEDS ORDERED: IPRA0.00 INH (18:46)
[2019-02-28] MEDS ORDERED: NYST1POW9 TOP (18:46)
[2019-02-28 20:54] VITALS: BP 118/55
[2019-02-28] MEDS: HYDROMORPHONE HCL 0.5 MG/ 0.5 ML SYRINGE (J1170 PER 1) IV PRN (23:04)
[2019-03-01] MEDS: HYDROMORPHONE HCL 0.5 MG/ 0.5 ML SYRINGE (J1170 PER 1) IV PRN ×7 (01:58→22:20)
[2019-03-01] MEDS: D5W/0.45% SODIUM CHLORIDE 1,000 ML IV SCH ×2 (04:55→14:06)
[2019-03-01] MEDS: ONDANSETRON 4MG/2ML VIAL (J2405) IV PRN ×4 (04:55→19:29)
--- NOTE | 2019-03-01 08:29 | HPE ---
DATE OF ADMISSION: 02/28/2019 PRIMARY CARE PROVIDER: [facility] CHIEF COMPLAINT: Decreased output through ostomy, intractable abdominal pain with nausea, vomiting. 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 The patient spoke with Rodrigue, her day nurse, who told her to just watch it. She has been having yellow-brown bilious material in the ostomy output. She then called Srinivasa back, who instructed her to continue to monitor. She then complained of 10 out of 10 sharp abdominal pain in the bilateral lower quadrants, which started to worsen today, prompting her to come into the emergency room. She describes it as sharp and stabbing with nausea and vomiting three times today with bilious emesis. No fever or chills. Complains of sweating, soaked her bed yesterday. The patient has had increasing shortness of breath since last . She has been drinking clear liquids at home and not really eating well since last . The patient is comfort measures only, admitted for pain control, nasogastric tube for decompression. Hospice nurse was at the bedside in the emergency room and reiterated that there will be no lab tests or further evaluations. The patient was in agreement. PAST MEDICAL HISTORY: 1. Multiple abdominal surgeries. 2. Personal history of venous thromboembolism. 3. Abdominal hernia. 4. Type 2 diabetes. 5. Asthma. 6. Hyperlipidemia. 7. Reflux. 8. Nephrolithiasis. 9. Allergic rhinitis. 10. Chronic maxillary sinusitis. 11. Chronic headaches. 12. Chronic pain syndrome. PAST SURGICAL HISTORY: 1. Hernia repair times four. 2. Stoma reversal in October 2017. 3. Battery replacement for stimulator in February 2018. 4. Scalp tumor resection in 1984. 5. Parastomal hernia repair in June 2014. 6. Lumpectomies, benign bilaterally at age 16 and 21. 7. Port placement in August 2017. 8. Bilateral sympathetectomies in 1987. 9. Hernia repair times two in 2013, repair of two hernias. 10. Repair of stoma in March 2013. 11. AV fistula repair in left leg in 1988. 12. Cyst removal from the right nostril in 2012. 13. Ileostomy in 2012. 14. SPO in 2001. 15. Abdominal hernia repair in 2004. 16. Ventral hernia repair in 2009. 17. Small portion of small bowel resected, ventral hernia repair in 2010. 18. Dorsal column stimulator taken out and implanted again in February 2010. SOCIAL HISTORY: The patient is DO NOT INTUBATE, DO NOT RESUSCITATE. She is comfort measures only. Nonsmoker. Denies any history of alcohol use. No illicit drug use. Wheelchair at baseline. FAMILY HISTORY: Father with cerebral artery occlusion, infarction and neoplasm, currently alive. Mother with coronary artery disease, myelodysplastic syndrome. One brother is healthy. Two brothers with diabetes and renal failure. REVIEW OF SYSTEMS: As per history of present illness. 12-point system otherwise negative. PHYSICAL EXAMINATION: Temperature 96.5, pulse 86, respiratory rate 18, blood pressure 109/71, 97% on room air. GENERAL: The patient appears disheveled, older than her stated age. Poor dentition. Dry mucous membranes. Nasogastric tube in place to low intermittent suction with bilious output. No jugular venous distention (JVD). No thyromegaly. Dry mucous membranes with chapped lips. No cervical lymphadenopathy. LUNGS: Diminished but clear to auscultation. No wheezing, rales or rhonchi. [id number]-Ipdl noted in the right upper chest. ABDOMEN: Multiple well healed scars in the midline and bilateral lower quadrants. Colostomy in the left lower quadrant with bilious material, slightly tender on the left lower quadrant. No rebound or guarding. Positive bowel sounds times four quadrants. EXTREMITIES: The patient has well healed scars in the left. No cyanosis, clubbing or any pitting edema. LABORATORY DATA: Glucose of 88. Abdominal film showed no acute abnormalities. ASSESSMENT AND PLAN: This is a 58-year-old female with a history of multiple abdominal surgeries, diabetes, hyperlipidemia, short bowel syndrome, asthma, DO NOT RESUSCITATE, DO NOT INTUBATE, presented with intractable abdominal pain, decreased output through her colostomy bag. She is currently admitted for comfort measures only. This has been confirmed with Dr. Yosi Jiménez, who agrees with minimal invasive therapy. Currently with a nasogastric tube to low intermittent suction and IV Dilaudid as needed for pain control, Zofran for antiemetic and IV fluids for support. The patient's hospice nurse was present at the bedside and agrees with current management. [facility] will assume care on 03/01/2019 at 7:00 a.m. MARLYN
--- NOTE | 2019-03-01 11:04 | IPNPDOC ---
Subjective Date Seen The patient was seen on 03/01/19. Subjective Chief Complaint/HPI abdominal pain Events since last encounter 58 yo F hospice patient admitted fro uncontrolled pain and bowel obstruction. NGT placed and patient has had small amount of stool in ostomy. States pain remains severe and IV dilaudid not completely controlling pain. She take Dilaudid 4 mg at home via hospice. Gastrointestinal: Reports: Nausea, Abdominal Pain; Denies: Vomiting, Diarrhea, Constipation Objective Physical Examination General Exam: Positive: Alert, Cooperative, No Acute Distress Chest Exam: Positive: Clear to auscultation, Normal air movement Abdomen Exam: Positive: Other (moderately distended. tender throughout) Skin Exam: Positive: Nl turgor and temperature; Negative: Rash, Breakdown Psych Exam: Positive: Mental status NL Assessment /Plan Problems (1) SBO (small bowel obstruction) Status: Acute Problem Text: continue NGT. If no improvement, consider sending home on comfort measures only. her MOLST advises limited medical intervention for symptoms management including antibiotics and IVF. 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?: No VTE Exclusion Mechanical Proph: Other (CHIEF TECHNICIAN X RAY) VTE Exclusion Pharmacological: Other (CHIEF TECHNICIAN X RAY) VS, I&O, 24H, Fishbone Vital Signs/I&O Vital Signs Date Time Temp Pulse Resp B/P (MAP) Pulse Ox O2 Delivery O2 Flow Rate FiO2 03/01/19 09:27 18 03/01/19 06:03 Room Air 02/28/19 21:18 97 02/28/19 20:54 97.8 80 118/55 (76) I&O- Last 24 Hours up to 6 AM 03/01/19 06:00 Intake Total 0 ml Output Total 250 ml Balance -250 ml Laboratory Data 24H LABS Laboratory Tests 2 02/28/19 17:22: Bedside Glucose (Misc Panel) 88 Sarika Alvarado CORPORATE COORDINATOR Mar 01, 2019 11:04
[2019-03-02] MEDS: D5W/0.45% SODIUM CHLORIDE 1,000 ML IV SCH ×2 (00:15→10:05)
[2019-03-02] MEDS: HYDROMORPHONE HCL 0.5 MG/ 0.5 ML SYRINGE (J1170 PER 1) IV PRN ×4 (00:16→10:05)
[2019-03-02] MEDS: ONDANSETRON 4MG/2ML VIAL (J2405) IV PRN ×3 (01:10→10:04)
[2019-03-02] MEDS ORDERED: SODIUM CHLORIDE 0.9% INJ 10 ML SYR IV PRN (11:00)
[2019-03-02] MEDS ORDERED: HYDROmorphone 2 MG TAB PO PRN (14:45)
--- NOTE | 2019-03-02 23:42 | DSES ---
DATE OF ADMISSION: 02/28/2019 DATE OF DISCHARGE: 03/02/2019 ATTENDING PHYSICIAN: Dr. Kg Bass PRIMARY CARE PROVIDER: Dr. Tutu Sanchez HISTORY OF THE PRESENT ILLNESS: This is a 58-year-old female who is currently a hospice patient, presented at recommendation of the hospice nurse to have evaluation for symptoms of severe abdominal pain with small bowel obstruction (SBO). Hospice recommended nasogastric (NG) tube placement for decompression and comfort. Patient was subsequently admitted and family medicine service assumed care. HOSPITAL COURSE: The patient maintained her NG tube with increased output from her stoma. She has had a total of 650 mL of liquid stool expressed from her stoma. She did receive (dictation cut off). PHYSICAL EXAMINATION: On physical exam today, patient's pain is well controlled. She states her abdomen does feel better. After discussion with patient, including her primary care provider, and the attending physician as well as hospice nurse, it was deemed that the patient would be more appropriate to have her care assumed at hospice house as her father cannot manage NG tube placement for comfort and [facility] can do that for her. On physical exam today, patient appears comfortable, answering questions appropriately and agreeable transition to the hospice house. DISCHARGE DIAGNOSES: 1. Small bowel obstruction. 2. Diabetes. 3. Hyperlipidemia. 4. Short gut syndrome. PLAN: Patient will be discharged to hospice house, activities as tolerated, diet is as tolerated. MEDICATIONS ARE FOLLOWS: - amitriptyline 150 mg by mouth nightly - amitriptyline 50 mg by mouth daily in the morning - ammonium lactate cream topically twice a day - Pedialyte solution 330 mL by mouth three times a day - hydromorphone 8 mg by mouth every 3 hours as needed for pain - NovoLog 70/30 FlexPen 35 units subcu daily - Toujeo SoloStar 70 units subcu every morning - DuoNeb every 6 hours as needed for shortness of breath or wheezing - Lactulose 30 mL by mouth three times a day - Nystatin powder, apply topically twice a day as needed for rash - Zofran 4 mg IM every 4 hours as needed for nausea or vomiting - Carafate 1 gram by mouth twice a day Patient is discharged in stable condition.
[2019-03-03] MEDS ORDERED: SODIUM CHLORIDE 0.9% INJ 10 ML SYR IV SCH (09:00)
== END 2019-03-02 15:15 | disposition hospice, home (50) | DRG 389 ==
LOC: M ED 15:06 → M ED INP 17:26 → M MS5PR 22:20
PROVIDERS: ADMIT General Practice; ATTEND Family Medicine
DX: K56.609 Unspecified intestinal obstruction, unspecified as to partial versus complete obstruction (principal); K91.2 Postsurgical malabsorption, not elsewhere classified; E11.9 Type 2 diabetes mellitus without complications; E78.5 Hyperlipidemia, unspecified; Z79.899 Other long term (current) drug therapy; J45.909 Unspecified asthma, uncomplicated; Z66 Do not resuscitate; K21.9 Gastro-esophageal reflux disease without esophagitis; G89.29 Other chronic pain; J32.0 Chronic maxillary sinusitis

== ENCOUNTER 2019-03-23 10:05 | Outpatient (CLI) | payer OTHER ==
[~2019-03-23] VITALS: Ht 170.2 cm; Wt 77.2 kg
[2019-03-23 10:00] VITALS: BP 124/68
[~2019-03-23 10:05] MED LIST changes: +DOXY100C PO; +NYST1POW9 TOP; +ONDA8TAB10 PO; -ONDA8TAB7 PO; -SIMV20TA2 PO; +SIMV20TA22 PO
[2019-03-23] MEDS ORDERED: REGL10TA6 PO (10:33)
[2019-03-23] MEDS ORDERED: SENN1TAB41 PO (10:35)
== END 2019-03-23 10:30 | disposition home or self-care (01) ==
LOC: M INFU 10:05
PROVIDERS: ATTEND Family Medicine
DX: Z95.9 Presence of cardiac and vascular implant and graft, unspecified (principal); Z88.0 Allergy status to penicillin; Z88.2 Allergy status to sulfonamides; Z88.8 Allergy status to other drugs, medicaments and biological substances; Z91.040 Latex allergy status; Z91.041 Radiographic dye allergy status; Z91.048 Other nonmedicinal substance allergy status; Z91.018 Allergy to other foods

== ENCOUNTER 2019-04-20 12:35 | Outpatient (CLI) | payer OTHER ==
[~2019-04-20] VITALS: Ht 165.1 cm; Wt 77.2 kg
[~2019-04-20 12:35] MED LIST changes: +SENN1TAB41 PO
[2019-04-20 13:00] VITALS: BP 107/58
== END 2019-04-20 13:05 | disposition home or self-care (01) ==
LOC: M INFU 12:35
PROVIDERS: ATTEND Family Medicine
DX: Z95.9 Presence of cardiac and vascular implant and graft, unspecified (principal)

== ENCOUNTER 2019-05-18 13:10 | Outpatient (CLI) | payer OTHER ==
[~2019-05-18] VITALS: Ht 165.1 cm; Wt 77.2 kg
[2019-05-18 13:15] VITALS: BP 117/65
== END 2019-05-18 14:15 | disposition home or self-care (01) ==
LOC: M INFU 13:10
PROVIDERS: ATTEND Family Medicine
DX: Z95.9 Presence of cardiac and vascular implant and graft, unspecified (principal); Z88.0 Allergy status to penicillin; Z88.2 Allergy status to sulfonamides; Z88.8 Allergy status to other drugs, medicaments and biological substances; Z91.040 Latex allergy status; Z91.041 Radiographic dye allergy status; Z91.048 Other nonmedicinal substance allergy status; Z91.018 Allergy to other foods
CPT/HCPCS: 96523; J1642

== ENCOUNTER 2019-06-15 12:51 | Outpatient (CLI) | payer OTHER ==
[~2019-06-15] VITALS: Ht 152.4 cm; Wt 77.2 kg
[~2019-06-15 12:51] MED LIST changes: -SODIUM CHLORIDE 0.9% INJ 10 ML SYR IV SCH
[2019-06-15 13:15] VITALS: BP 155/72
[2019-06-15] MEDS ORDERED: SODIUM CHLORIDE 0.9% INJ 10 ML SYR IV ONE ×2 (14:00)
== END 2019-06-15 14:00 | disposition home or self-care (01) ==
LOC: M INFU 12:51
PROVIDERS: ATTEND Family Medicine
DX: Z95.9 Presence of cardiac and vascular implant and graft, unspecified (principal); Z88.0 Allergy status to penicillin; Z88.2 Allergy status to sulfonamides; Z88.8 Allergy status to other drugs, medicaments and biological substances; Z91.040 Latex allergy status; Z91.041 Radiographic dye allergy status; Z91.048 Other nonmedicinal substance allergy status; Z91.018 Allergy to other foods
CPT/HCPCS: 96523; J1642

== ENCOUNTER 2019-06-18 16:29 | Outpatient (CLI) | payer OTHER ==
[~2019-06-18] VITALS: Ht 152.4 cm; Wt 77.2 kg
[~2019-06-18 16:29] MED LIST changes: +SODIUM CHLORIDE 0.9% INJ 10 ML SYR IV SCH
[2019-06-18 16:30] VITALS: BP 108/52
== END 2019-06-18 17:25 | disposition home or self-care (01) ==
LOC: M INFU 16:29
PROVIDERS: ATTEND Family Medicine
DX: Z95.9 Presence of cardiac and vascular implant and graft, unspecified (principal); Z88.0 Allergy status to penicillin; Z88.2 Allergy status to sulfonamides; Z88.8 Allergy status to other drugs, medicaments and biological substances; Z91.040 Latex allergy status; Z91.041 Radiographic dye allergy status; Z91.048 Other nonmedicinal substance allergy status; Z91.018 Allergy to other foods

== ENCOUNTER → 2019-06-18 | Outpatient (CLI) | payer OTHER ==
[2019-06-18 17:45] LABS: HEMATOCRIT 36.9 % (36.0-47.0); HEMOGLOBIN 11.5 g/dl (12.0-15.5); MEAN CORPUSCULAR HEMOGLOBIN 29.3 pg (27.0-33.0); MEAN CORPUSCULAR HGB CONC 31.2 g/dl (32.0-36.5); MEAN CORPUSCULAR VOLUME 93.9 fl (80.0-96.0); PLATELET COUNT, AUTOMATED 174 10^3/uL (150-450); RED BLOOD COUNT 3.93 10^6/uL (4.00-5.40); WHITE BLOOD COUNT 4.7 10^3/uL (4.0-10.0)
[2019-06-18 18:15] LABS: ALBUMIN 3.1 GM/DL (3.2-5.2); ALT/SGPT 36 U/L (12-78); BILIRUBIN,TOTAL 0.2 MG/DL (0.2-1.0); BLOOD UREA NITROGEN 6 MG/DL (7-18); CARBON DIOXIDE LEVEL 26 MEQ/L (21-32); CHLORIDE LEVEL 102 MEQ/L (98-107); CHOLESTEROL LEVEL 143 MG/DL (<200); CHOLESTEROL RISK RATIO 3.487 (<5); CREATININE FOR GFR 0.55 MG/DL (0.55-1.30); GLOMERULAR FILTRATION RATE > 60.0 (>51); GLUCOSE, FASTING 357 MG/DL (70-100); HDL CHOLESTEROL 41 MG/DL (>40); LDL CHOLESTEROL 44 MG/DL (<100); NON-HDL-C 102 MG/DL; POTASSIUM SERUM 3.9 MEQ/L (3.5-5.1); SODIUM LEVEL 134 MEQ/L (136-145); TOTAL PROTEIN 6.9 GM/DL (6.4-8.2); TRIGLYCERIDES LEVEL 291 MG/DL (<150)
== END ==
LOC: M LAB 16:31
PROVIDERS: ATTEND Family Medicine
DX: E11.22 Type 2 diabetes mellitus with diabetic chronic kidney disease (principal); N18.3 Chronic kidney disease, stage 3 (moderate); K91.2 Postsurgical malabsorption, not elsewhere classified; E78.2 Mixed hyperlipidemia

== ENCOUNTER 2019-06-29 19:10 | Inpatient (IN) | payer OTHER ==
[~2019-06-29] VITALS: Ht 170.2 cm; Wt 69.8 kg
[~2019-06-29 19:10] MED LIST changes: -MUPI2OI EXT; -TRIA1CR80 TOP; -VITAD1000T PO
[2019-06-29] MEDS ORDERED: ONDANSETRON 4MG/2ML VIAL (J2405) IV ONE (20:00)
[2019-06-29 20:41] LABS: BASO % 0.4 % (0.0-1.0); EOS # 0.1 10^3/uL (0.0-0.5); EOS % 1.7 % (0.0-3.0); HEMATOCRIT 37.4 % (36.0-47.0); HEMOGLOBIN 11.7 g/dl (12.0-15.5); LYMPH # 1.6 10^3/uL (1.5-5.0); LYMPH % 32.5 % (24.0-44.0); MEAN CORPUSCULAR HEMOGLOBIN 29.6 pg (27.0-33.0); MEAN CORPUSCULAR HGB CONC 31.3 g/dl (32.0-36.5); MEAN CORPUSCULAR VOLUME 94.7 fl (80.0-96.0); MONO # 0.4 10^3/uL (0.0-0.8); MONO % 8.8 % (0.0-5.0); NEUTROPHILS # 2.7 10^3/uL (1.5-8.5); NEUTROPHILS % 56.2 % (36.0-66.0); PLATELET COUNT, AUTOMATED 174 10^3/uL (150-450); RED BLOOD COUNT 3.95 10^6/uL (4.00-5.40); WHITE BLOOD COUNT 4.8 10^3/uL (4.0-10.0)
[2019-06-29] MEDS: HYDROMORPHONE HCL 0.5 MG/ 0.5 ML SYRINGE (J1170 PER 1) IV PRN ×2 (20:58→22:25)
[2019-06-29] MEDS ORDERED: HumuLIN R (REGULAR) INSULIN (NovoLIN R) **100U/ML** PER UNIT IV ONE (21:15)
[2019-06-29 21:21] LABS: ALBUMIN 3.1 GM/DL (3.2-5.2); ALT/SGPT 36 U/L (12-78); BILIRUBIN,DIRECT < 0.1 MG/DL (0.0-0.2); BILIRUBIN,TOTAL 0.2 MG/DL (0.2-1.0); LIPASE 37 U/L (73-393)
[2019-06-29] MEDS ORDERED: MAGNESIUM CITRATE 300 ML BTL PO ONE (21:45)
[2019-06-29] MEDS ORDERED: HYDROMORPHONE HCL 0.5 MG/ 0.5 ML SYRINGE (J1170 PER 1) IV PRN (22:30)
[2019-06-29] MEDS ORDERED: VITAD1000T PO (23:18)
[2019-06-29] MEDS ORDERED: ALBU83IN INH (23:18)
[2019-06-29] MEDS ORDERED: MUPI2OI EXT (23:18)
[2019-06-29] MEDS ORDERED: REGL10TA6 PO (23:18)
[2019-06-29] MEDS ORDERED: TRIA1CR80 TOP (23:18)
[2019-06-29] MEDS ORDERED: SIME80TA PO (23:22)
[2019-06-30] VITALS (18 sets, daily range): BP systolic 118–154; BP diastolic 58–78; O2SAT 92–98
[2019-06-30] MEDS: NS 1,000 ML IV SCH ×3 (00:16→17:07)
--- NOTE | 2019-06-30 00:17 | REPVR ---
PROCEDURE INFORMATION: Exam: CT Abdomen And Pelvis Without Contrast Exam date and time: 06/29/2019 11:37 PM Age: 58 years old Clinical indication: Abdominal pain; Generalized TECHNIQUE: Imaging protocol: Computed tomography of the abdomen and pelvis without contrast. Axial, coronal and sagittal reformatted images were created and reviewed. Radiation optimization: All CT scans at this facility use at least one of these dose optimization techniques: automated exposure control; mA and/or kV adjustment per patient size (includes targeted exams where dose is matched to clinical indication); or iterative reconstruction. COMPARISON: CT ABD/PEL W/PO CONTRAST ONLY 11/12/2018 5:02 PM FINDINGS: Tubes, catheters and devices: Neurostimulator device in the subcutaneous tissues of the right flank. Lungs: Linear stranding and groundglass at the lung bases, likely due to atelectasis and/or scarring. Liver: Moderate hepatomegaly. Diffuse hepatic steatosis. Gallbladder and bile ducts: No radiodense gallstones. No biliary ductal dilatation. Pancreas: Unremarkable. Spleen: Unremarkable. Adrenals: Unremarkable. Kidneys and ureters: No mass. No radiodense calculi. No hydronephrosis. Stomach and bowel: Status post colectomy and left lower quadrant ileostomy. Mildly distended, fluid-filled loops of small bowel, possibly secondary to gastroenteritis or ileus. No obstruction. No pneumatosis. Appendix: Normal. Intraperitoneal space: No free fluid. No organized fluid collection. No free air. Vasculature: Unremarkable. No aneurysm. Lymph nodes: No pathologically enlarged lymph nodes. Bladder: Unremarkable. Reproductive: Status post hysterectomy. Bones/joints: No acute osseous abnormality. Osteopenia. Mild degenerative changes. Soft tissues: Postsurgical changes in the anterior abdominal wall. IMPRESSION: 1. Mildly distended, fluid-filled loops of small bowel, possibly secondary to gastroenteritis or ileus. 2. Moderately enlarged, fatty liver. 3. Additional findings, as above. Electronically signed by: Vladislav Gregory On 06/30/2019 00:16:38 AM
[2019-06-30] MEDS ORDERED: ALBUTEROL SULFATE 2.5 MG/0.5 ML INH NEB SOLN INH PRN (01:00)
[2019-06-30] MEDS ORDERED: ONDANSETRON 4MG/2ML VIAL (J2405) IM PRN (01:00)
[2019-06-30] MEDS ORDERED: ACETAMINOPHEN TAB 650MG DOSE (2X325MG) PO PRN (01:00)
[2019-06-30] MEDS ORDERED: PERCOCET 5MG/325MG TAB PO PRN ×2 (01:00)
[2019-06-30] MEDS ORDERED: DEXTROSE 50% 50 ML SYRINGE IV PRN (01:30)
[2019-06-30] MEDS ORDERED: GLUCOSE 4 GM CHEW TABLET PO PRN (01:30)
[2019-06-30] MEDS ORDERED: GLUCAGON FOR INJ 1 MG VIAL (J1610) SC PRN (01:30)
--- NOTE | 2019-06-30 01:55 | HPEPDOC ---
[facility] Medical History & Physical Date of Admission Jun 29, 2019 Date of Service: Jun 29, 2019 Attending Physician: DON GILL MD History and Physical CHIEF COMPLAINT: Abdominal pain HISTORY OF PRESENT ILLNESS: 58-year-old female with past medical history of diabetes mellitus and extensive abdominal surgeries including colectomy/multiple small bowel resections, status post ileostomy, presents from home with worsening abdominal pain. Patient was under hospice care at home for the past 6 months up until one week ago when she was told that she is not a candidate for hospice anymore. She has chronic abdominal pain secondary to her multiple surgeries, reports lack of any output through her ileostomy for the past 3 days along with nausea and vomiting, abdominal distention. She denies any fever, shortness of breath, chest pain or headaches. She is still interested in going back to hospice care if she qualifies. 10 point review of system is negative except for above PAST MEDICAL HISTORY: 1. Diabetes mellitus. 2. Small/large bowel obstruction PAST SURGICAL HISTORY: 1. Colectomy. 2. Hysterectomy. 3. Multiple small bowel resections. 4. Abdominal wall hernia repair SOCIAL HISTORY: Never smoker. Denies alcohol use. Denies drug use FAMILY HISTORY: Positive for heart disease ALLERGIES: Please see below. HOME MEDICATIONS: Please see below. PHYSICAL EXAMINATION: VITAL SIGNS: Please see below. GENERAL: No distress HEENT: Normocephalic, atraumatic, moist mucous membranes NECK: Supple CARDIOVASCULAR EXAMINATION: S1, S2, no murmurs RESPIRATORY EXAMINATION: Scattered rhonchi, no wheezing ABDOMINAL EXAMINATION: Soft, moderate to severe diffuse tenderness to palpation, mildly distended, hypoactive bowel sounds, ileostomy noted without any stool EXTREMITIES: Range of motion intact SKIN: No rash NEUROLOGICAL EXAMINATION: Alert and oriented 3, no focal deficits PSYCHIATRIC EXAMINATION: Calm and cooperative LABORATORY DATA: See below. IMAGING: CT abdomen and pelvis with mildly distended loops of bowel, no acute pathology MICROBIOLOGY: Please see below. ASSESSMENT: 58-year-old female with past medical history diabetes mellitus and multiple abdominal surgeries who was recently on hospice now presents with worsening abdominal pain. PLAN: 1. Abdominal pain. Chronic, likely related to extensive surgical intervention of her abdomen, CT abdomen and pelvis without acute pathology, bowel regimen, IV hydration, pain control. PFS consulted to readdress hospice concerns. 2. Diabetes mellitus. Sliding scale insulin with meals and at bedtime DVT prophylaxis: Lovenox. GI prophylaxis: Not needed Vital Signs Vital Signs Date Time Temp Pulse Resp B/P (MAP) Pulse Ox O2 Delivery O2 Flow Rate FiO2 06/29/19 23:36 20 06/29/19 23:17 97.4 94 134/65 (88) 97 Room Air Laboratory Data Labs 24H Laboratory Tests 2 06/29/19 19:33: Bedside Glucose (Misc Panel) 516*H 06/29/19 20:31: POC Glucose (Misc Panel) 532*H, POC Sodium (Misc Panel) 134L, POC Potassium (Misc Panel) 4.1, POC Chloride (Misc Panel) 94L, POC Total CO2 (Misc Panel) 26.0, POC Blood Urea Nitrogen (Misc Panel 8, POC Ionized Calcium (Misc Panel) 5.1, POC Creatinine (Misc Panel) 0.3L, POC Hematocrit (Misc Panel) 37.0L 06/29/19 20:34: Immature Granulocyte % (Auto) 0.4, Neutrophils (%) (Auto) 56.2, Lymphocytes (%) (Auto) 32.5, Monocytes (%) (Auto) 8.8H, Eosinophils (%) (Auto) 1.7, Basophils (%) (Auto) 0.4, Neutrophils # (Auto) 2.7, Lymphocytes # (Auto) 1.6, Monocytes # (Auto) 0.4, Eosinophils # (Auto) 0.1, Basophils # (Auto) 0.0, Nucleated Red Blood Cells % (auto) 0.0, Bedside Glucose Confirm (Misc) 501*H, Total Bilirubin 0.2, Direct Bilirubin < 0.1, Aspartate Amino Transf (AST/SGOT) 45H, Alanine Aminotransferase (ALT/SGPT) 36, Alkaline Phosphatase 122H, Total Protein 7.0, Albumin 3.1L, Albumin/Globulin Ratio 0.79L, Lipase 37L 06/29/19 23:19: Bedside Glucose (Misc Panel) 179H CBC/BMP Laboratory Tests 06/29/19 20:34 Home Medications Scheduled Amitriptyline HCl (Amitriptyline HCl) 50 Mg Tab, 150 MG PO QPM Amitriptyline HCl (Amitriptyline HCl) 50 Mg Tab, 50 MG PO DAILY Ammonium Lactate (Ammonium Lactate) 12% Cream..g., 1 DOSE TOP BID APPLIED TO FEET Cholecalciferol (Vitamin D3) (Vitamin D3) 1,000 Unit Tablet, 1,000 UNITS PO DAILY Electrolytes/Dextrose (Pediatric Electrolyte Solution) 1,000 Ml Solution, 330 ML PO TID Lactulose (Lactulose) 10 Gm/15 Ml Noelle, 30 ML PO TID Metoclopramide HCl (Reglan) 10 Mg Tablet, 10 MG PO AC Mupirocin (Mupirocin) 22 Gm Oint...g., 1 DOSE EXT BID LEFT BREAST/ RIGHT CHEST WALL Sennosides/Docusate Sodium (Senna-S Tablet) 1 Each Tablet, 2 TAB PO BID Simethicone (Simethicone) 80 Mg Tab.chew, 160 MG PO WM Sucralfate (Sucralfate) 1 Gm Tablet, 1 GM PO BID CRUSH 1 TABLET; MIX WITH 10-15 ML OF WATER Triamcinolone Acet (Triamcinolone Acetonide 0.1% Crm) 80 Gm Cream..g., 1 DOSE TOP BID ABDOMEN/FINGERS Scheduled PRN Albuterol Sulf (Albuterol Sulfate) 2.5 Mg/3 Ml Vial.neb, 2.5 MG INH Q4H PRN for SHORTNESS OF BREATH Hydromorphone HCl (Dilaudid) 4 Mg Tablet, 12 MG PO Q3HP PRN for PAIN Nystatin (Nystatin Powder) 15 Gm Powder, 1 APPLIC TOP BID PRN for RASH APPLIED AROUND STOMA IF RED OR INFECTED Ondansetron HCl/Pf (Ondansetron HCl 4 mg/2 ml Vial) 4 Mg/2 Ml Vial, 4 MG IM Q6H PRN for NAUSEA Allergies Coded Allergies: Contrast Media (Verified Allergy, Severe, throat swelling, 06/29/19) latex (Verified Allergy, Severe, throat closes, 06/29/19) Penicillins (Verified Allergy, Intermediate, hives, 06/29/19) Sulfa (Sulfonamide Antibiotics) (Verified Allergy, Intermediate, hives, 06/29/19) adhesive tape (Verified Allergy, Intermediate, paper tape - blisters, hives, 06/29/19) azithromycin (Verified Allergy, Intermediate, hives, 06/29/19) ciprofloxacin (Verified Allergy, Intermediate, hives, 06/29/19) gatifloxacin (Verified Allergy, Intermediate, hives, 06/29/19) nitrofurantoin (Verified Allergy, Intermediate, hives, 06/29/19) oxycodone (Verified Allergy, Intermediate, hives, 06/29/19) strawberry (Verified Allergy, Intermediate, hives, 06/29/19) tomato (Verified Allergy, Intermediate, hives, 06/29/19) Grape (Verified Allergy, Unknown, GRAPE JUICE, 06/29/19) chlorpromazine (Verified Allergy, Unknown, 06/29/19) colchicine (Verified Allergy, Unknown, 06/29/19) fluphenazine (Verified Allergy, Unknown, 06/29/19) gabapentin (Verified Allergy, Unknown, 06/29/19) grape (Verified Allergy, Unknown, 06/29/19) ipratropium (Verified Allergy, Unknown, 06/29/19) mesoridazine (Verified Allergy, Unknown, 06/29/19) perphenazine (Verified Allergy, Unknown, 06/29/19) prochlorperazine (Verified Allergy, Unknown, 06/29/19) tramadol (Verified Allergy, Unknown, 06/29/19) trifluoperazine (Verified Allergy, Unknown, 06/29/19) iodine (Verified Adverse Reaction, Severe, seizures, 06/29/19) theophylline (Verified Adverse Reaction, Severe, seizures, 06/29/19) codeine (Verified Adverse Reaction, Intermediate, "out of body", 06/29/19) droperidol (Verified Adverse Reaction, Intermediate, "out of body", eyes roll back in head, 06/29/19) hydrocodone (Verified Adverse Reaction, Intermediate, confusion (Vicodin), 06/29/19) lidocaine (Verified Adverse Reaction, Intermediate, increases HR when applied to upper body, 06/29/19) lorazepam (Verified Adverse Reaction, Intermediate, hallucinations, alters mind, 06/29/19) meperidine (Verified Adverse Reaction, Intermediate, "out of body", shaky, 06/29/19) morphine (Verified Adverse Reaction, Intermediate, severe headache with large doses, 06/29/19) pregabalin (Verified Adverse Reaction, Intermediate, anxiety, shaking, 06/29/19) promethazine (Verified Adverse Reaction, Intermediate, "out of body" - phenothiazines, 06/29/19) propoxyphene (Verified Adverse Reaction, Intermediate, "out of body", 06/29/19) albuterol (Verified Adverse Reaction, Mild, shaky, 06/29/19) aspirin (Verified Adverse Reaction, Mild, ulcers - full strength only, 06/29/19) baclofen (Verified Adverse Reaction, Mild, shaking, 06/29/19) fentanyl (Verified Adverse Reaction, Mild, nervous, 06/29/19) midazolam (Verified Adverse Reaction, Mild, nervous, 06/29/19) red dye (Verified Adverse Reaction, Mild, not a true allergy, please see comments, 06/29/19) Patient states that she becomes anxious if the contents of her ostomy are red, so she tries to avoid. tiagabine (Verified Adverse Reaction, Mild, nervous, 06/29/19) A-FIB/CHADSVASC A-FIB History Current/History of A-Fib/PAF?: No DON GILL MD Jun 30, 2019 01:55
[2019-06-30] MEDS: HYDROMORPHONE HCL 0.5 MG/ 0.5 ML SYRINGE (J1170 PER 1) IV PRN ×6 (03:04→20:17)
[2019-06-30] MEDS: ONDANSETRON 4MG/2ML VIAL (J2405) IV PRN ×2 (03:59→17:43)
[2019-06-30 05:06] LABS: HEMATOCRIT 34.9 % (36.0-47.0); HEMOGLOBIN 11.1 g/dl (12.0-15.5); MEAN CORPUSCULAR HGB CONC 31.8 g/dl (32.0-36.5); MEAN CORPUSCULAR VOLUME 94.3 fl (80.0-96.0); PLATELET COUNT, AUTOMATED 153 10^3/uL (150-450); WHITE BLOOD COUNT 4.8 10^3/uL (4.0-10.0)
[2019-06-30] MEDS: ENOXAPARIN 40 MG/0.4 ML SYRINGE (J1650) SC SCH (05:23)
[2019-06-30 05:30] LABS: ALT/SGPT 34 U/L (12-78); BILIRUBIN,TOTAL 0.3 MG/DL (0.2-1.0); BLOOD UREA NITROGEN 8 MG/DL (7-18); CALCIUM LEVEL 9.3 MG/DL (8.5-10.1); CARBON DIOXIDE LEVEL 31 MEQ/L (21-32); CHLORIDE LEVEL 103 MEQ/L (98-107); CREATININE FOR GFR 0.51 MG/DL (0.55-1.30); GLOMERULAR FILTRATION RATE > 60.0 (>51); GLUCOSE, FASTING 197 MG/DL (70-100); MAGNESIUM LEVEL 1.9 MG/DL (1.8-2.4); POTASSIUM SERUM 3.6 MEQ/L (3.5-5.1); SODIUM LEVEL 139 MEQ/L (136-145); TOTAL PROTEIN 6.6 GM/DL (6.4-8.2)
[2019-06-30] MEDS ORDERED: ONDANSETRON 4MG/2ML VIAL (J2405) IV PRN (07:00)
--- NOTE | 2019-06-30 07:26 | REP ---
Clinical: Abdominal pain and distension. Technique: Upright view of the chest with supine and upright views of the abdomen and pelvis. Findings: Frontal view of the chest demonstrates [id number]-Asku with tip in the SVC and epidural stimulator at the lower thoracic level. Trace basilar fibroatelectatic changes are appreciated. No effusion. No free air below diaphragm to suspect pneumoperitoneum. Supine and upright views of the abdomen and pelvis demonstrate nonspecific bowel gas pattern. Evidence for prior abdominal surgery noted. Ostomy overlies the left mid abdomen. Skeletal structures demonstrate age-related changes. Impression: 1. Trace bibasilar fibroatelectatic changes. 2. No evidence for bowel obstruction or perforation. Electronically Signed by Darius Roth MD 06/30/2019 07:17 A
[2019-06-30] MEDS: LACTULOSE 20 GM/30 ML SYRUP UD PO SCH ×3 (08:06→20:18)
[2019-06-30] MEDS: HumaLOG INSULIN (NovoLOG) PER UNIT SC SCH ×4 (08:06→20:18)
[2019-06-30] MEDS: MUPIROCIN 2% OINT 22 GM TUBE EXT SCH ×2 (08:06→21:00)
[2019-06-30] MEDS: TRIAMCINOLONE ACET 0.1% CREAM 80 GM TOP SCH ×2 (08:07→21:00)
[2019-06-30] MEDS: SUCRALFATE 1 GM TAB PO SCH ×2 (08:07→20:17)
[2019-06-30] MEDS: SIMETHICONE 80 MG CHEW TAB PO SCH ×3 (08:07→17:43)
[2019-06-30] MEDS: METOCLOPRAMIDE 10 MG TAB PO SCH ×3 (08:07→17:44)
[2019-06-30] MEDS: SENOKOT S TAB PO SCH ×2 (08:07→20:17)
[2019-06-30] MEDS: AMITRIPTYLINE 50 MG TAB PO SCH ×2 (08:08→20:17)
[2019-06-30] MEDS: VITAMIN D 1,000 INTERNATIONAL UNITS TABLET PO SCH (08:09)
--- NOTE | 2019-06-30 09:41 | IPN ---
DATE: 06/30/2019 Rich was admitted with a bowel obstruction. She still has abdominal pain but thinks she "passed everything through." PHYSICAL EXAM: Afebrile. Vital signs stable. General Appearance: Alert and conversant, in no distress. Lungs: Clear. Heart: Regular rate and rhythm. Abdomen: Soft. Mildly distended, diffuse, nontender. No peripheral edema. LABS: CBC is unremarkable. Electrolytes unremarkable. Blood sugar initially was 500, it was down to 179 last night. This morning it was 197. IMPRESSION: 1. Bowel obstruction. Continue conservative treatment. ____case discussed with Dr. Sanchez, her primary care physician. Surgery only indicated in life-threatening emergency. 2. Diabetes. Sliding scale of insulin coverage. Begin basal insulin tomorrow. 3. Recent enrollment in hospice. She disenrolled it, apparently at her request. MARLYN
[2019-07-01] MEDS: HYDROMORPHONE HCL 0.5 MG/ 0.5 ML SYRINGE (J1170 PER 1) IV PRN ×3 (00:46→08:45)
[2019-07-01] MEDS: NS 1,000 ML IV SCH (03:09)
[2019-07-01] MEDS: ENOXAPARIN 40 MG/0.4 ML SYRINGE (J1650) SC SCH (05:21)
[2019-07-01 05:31] LABS: HEMOGLOBIN 11.7 g/dl (12.0-15.5); MEAN CORPUSCULAR HEMOGLOBIN 29.4 pg (27.0-33.0); MEAN CORPUSCULAR HGB CONC 31.6 g/dl (32.0-36.5); PLATELET COUNT, AUTOMATED 178 10^3/uL (150-450); RED BLOOD COUNT 3.98 10^6/uL (4.00-5.40); WHITE BLOOD COUNT 5.1 10^3/uL (4.0-10.0)
[2019-07-01 05:55] LABS: ALT/SGPT 36 U/L (12-78); BILIRUBIN,TOTAL 0.3 MG/DL (0.2-1.0); BLOOD UREA NITROGEN 6 MG/DL (7-18); CALCIUM LEVEL 9.3 MG/DL (8.5-10.1); CARBON DIOXIDE LEVEL 27 MEQ/L (21-32); CHLORIDE LEVEL 107 MEQ/L (98-107); CREATININE FOR GFR 0.46 MG/DL (0.55-1.30); GLOMERULAR FILTRATION RATE > 60.0 (>51); GLUCOSE, FASTING 195 MG/DL (70-100); POTASSIUM SERUM 3.7 MEQ/L (3.5-5.1); SODIUM LEVEL 140 MEQ/L (136-145); TOTAL PROTEIN 6.7 GM/DL (6.4-8.2)
[2019-07-01 06:00] VITALS: BP 147/83
[2019-07-01] MEDS: HumaLOG INSULIN (NovoLOG) PER UNIT SC SCH ×4 (08:44→21:00)
[2019-07-01] MEDS: SIMETHICONE 80 MG CHEW TAB PO SCH ×3 (08:44→17:36)
[2019-07-01] MEDS: SUCRALFATE 1 GM TAB PO SCH ×2 (08:44→21:13)
[2019-07-01] MEDS: AMITRIPTYLINE 50 MG TAB PO SCH ×2 (08:44→21:13)
[2019-07-01] MEDS: METOCLOPRAMIDE 10 MG TAB PO SCH ×3 (08:44→16:38)
[2019-07-01] MEDS: VITAMIN D 1,000 INTERNATIONAL UNITS TABLET PO SCH (08:44)
[2019-07-01] MEDS: MUPIROCIN 2% OINT 22 GM TUBE EXT SCH ×2 (08:47→21:15)
[2019-07-01] MEDS: TRIAMCINOLONE ACET 0.1% CREAM 80 GM TOP SCH ×2 (08:47→21:16)
[2019-07-01] MEDS: LACTULOSE 20 GM/30 ML SYRUP UD PO SCH ×3 (09:00→21:13)
[2019-07-01] MEDS: SENOKOT S TAB PO SCH ×2 (13:18→21:13)
[2019-07-01] MEDS: HYDROmorphone (DILAUDID) 4 MG TAB PO PRN ×3 (13:19→21:15)
--- NOTE | 2019-07-01 13:26 | IPNPDOC ---
Subjective Date Seen The patient was seen on 07/01/19. Subjective Chief Complaint/HPI adequate pain control and baseline ostomy output Constitutional: Denies: Chills, Fever ENT: Denies: Head Aches Pulmonary: Denies: Dyspnea, Cough Cardiovascular: Denies: Chest Pain, Palpitations Gastrointestinal: Denies: Nausea, Vomiting Objective Physical Examination General Exam: Positive: Alert ENT Exam: Positive: Mucous membr. moist/pink Neck Exam: Negative: JVD Chest Exam: Positive: Clear to auscultation Abdomen Exam: Positive: Normal bowel sounds Extremity Exam: Negative: Edema Skin Exam: Negative: Rash Neuro Exam: Positive: Normal Speech Assessment /Plan Problems (1) Comfort measures only status Status: Chronic Problem Text: case dw PCP Dr. Sanchez-he and I feel patient would be an excellent palliative care candidate-consult placed (2) High output ileostomy Status: Acute Problem Text: stable ostomy output/volume status/lytes (3) Constipation Status: Acute Problem Text: resumed HD lactulose 15 TID, sen/doc 2 BID (4) Diabetes mellitus type 2 in obese Status: Chronic Problem Text: BG high 100s on SSLI (diet controlled at home) (5) Chronic abdominal pain Status: Acute Problem Text: 06/30 resumed HD HM 12 q3H (3 4 mg tabs q3H=24 tabs QD)(96 mg QD) which she has been on since 03/13/19-prior was 8 q3H (6) Opioid use disorder Problem Text: as per chronic abdominal pain 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?: Yes VS, I&O, 24H, Fishbone Vital Signs/I&O Vital Signs Date Time Temp Pulse Resp B/P (MAP) Pulse Ox O2 Delivery O2 Flow Rate FiO2 07/01/19 08:55 17 Room Air 07/01/19 06:00 99.7 78 147/83 (104) 94 I&O- Last 24 Hours up to 6 AM 07/01/19 06:00 Intake Total 2040 ml Output Total 2850 ml Balance -810 ml Laboratory Data 24H LABS Laboratory Tests 2 06/30/19 16:53: Bedside Glucose (Misc Panel) 221H 06/30/19 19:45: Bedside Glucose (Misc Panel) 313H 07/01/19 05:16: Nucleated Red Blood Cells % (auto) 0.0, Anion Gap 6L, Glomerular Filtration Rate > 60.0, Lactic Acid Level 1.9, Calcium Level 9.3, Total Bilirubin 0.3, Aspartate Amino Transf (AST/SGOT) 32, Alanine Aminotransferase (ALT/SGPT) 36, Alkaline Phosphatase 122H, Total Protein 6.7, Albumin 3.0L, Albumin/Globulin Ratio 0.81L 07/01/19 11:46: Bedside Glucose (Misc Panel) 228H CBC/BMP Laboratory Tests 07/01/19 05:16 Kg Bass M.D. Jul 01, 2019 13:26
[2019-07-01] MEDS: SODIUM CHLORIDE 0.9% INJ 10 ML SYR IV PRN (13:35)
[2019-07-01 14:00] VITALS: BP 160/85
[2019-07-01] MEDS: ONDANSETRON 4MG/2ML VIAL (J2405) IV PRN (21:15)
[2019-07-01 22:00] VITALS: BP 110/57
[2019-07-02] MEDS: HYDROmorphone (DILAUDID) 4 MG TAB PO PRN ×6 (01:31→21:45)
[2019-07-02] MEDS: ENOXAPARIN 40 MG/0.4 ML SYRINGE (J1650) SC SCH (05:14)
[2019-07-02 05:48] LABS: BASO % 0.6 % (0.0-1.0); EOS # 0.1 10^3/uL (0.0-0.5); EOS % 1.6 % (0.0-3.0); HEMATOCRIT 36.2 % (36.0-47.0); HEMOGLOBIN 11.5 g/dl (12.0-15.5); LYMPH # 1.8 10^3/uL (1.5-5.0); LYMPH % 37.1 % (24.0-44.0); MEAN CORPUSCULAR HEMOGLOBIN 29.7 pg (27.0-33.0); MEAN CORPUSCULAR HGB CONC 31.8 g/dl (32.0-36.5); MEAN CORPUSCULAR VOLUME 93.5 fl (80.0-96.0); MONO # 0.5 10^3/uL (0.0-0.8); MONO % 9.1 % (0.0-5.0); NEUTROPHILS # 2.5 10^3/uL (1.5-8.5); NEUTROPHILS % 51.2 % (36.0-66.0); PLATELET COUNT, AUTOMATED 180 10^3/uL (150-450); RED BLOOD COUNT 3.87 10^6/uL (4.00-5.40)
[2019-07-02 06:00] VITALS: BP 110/56
[2019-07-02 06:03] LABS: BLOOD UREA NITROGEN 8 MG/DL (7-18); CALCIUM LEVEL 9.7 MG/DL (8.5-10.1); CARBON DIOXIDE LEVEL 27 MEQ/L (21-32); CHLORIDE LEVEL 106 MEQ/L (98-107); CREATININE FOR GFR 0.49 MG/DL (0.55-1.30); GLOMERULAR FILTRATION RATE > 60.0 (>51); GLUCOSE, FASTING 160 MG/DL (70-100); POTASSIUM SERUM 3.7 MEQ/L (3.5-5.1); SODIUM LEVEL 139 MEQ/L (136-145)
[2019-07-02] MEDS: AMITRIPTYLINE 50 MG TAB PO SCH ×2 (09:02→21:46)
[2019-07-02] MEDS: SENOKOT S TAB PO SCH ×2 (09:02→21:45)
[2019-07-02] MEDS: METOCLOPRAMIDE 10 MG TAB PO SCH ×3 (09:02→18:12)
[2019-07-02] MEDS: VITAMIN D 1,000 INTERNATIONAL UNITS TABLET PO SCH (09:02)
[2019-07-02] MEDS: SIMETHICONE 80 MG CHEW TAB PO SCH ×3 (09:02→18:12)
[2019-07-02] MEDS: SUCRALFATE 1 GM TAB PO SCH ×2 (09:02→21:46)
[2019-07-02] MEDS: LACTULOSE 20 GM/30 ML SYRUP UD PO SCH ×3 (09:03→21:46)
[2019-07-02] MEDS: HumaLOG INSULIN (NovoLOG) PER UNIT SC SCH ×4 (09:03→21:00)
[2019-07-02] MEDS: MUPIROCIN 2% OINT 22 GM TUBE EXT SCH ×2 (09:04→21:47)
[2019-07-02] MEDS: TRIAMCINOLONE ACET 0.1% CREAM 80 GM TOP SCH ×2 (09:04→21:46)
[2019-07-02] MEDS: ONDANSETRON 4MG/2ML VIAL (J2405) IV PRN ×3 (09:27→22:05)
[2019-07-02] MEDS: SODIUM CHLORIDE 0.9% INJ 10 ML SYR IV SCH (09:28)
[2019-07-02 14:00] VITALS: BP 121/63
--- NOTE | 2019-07-02 15:25 | IPNPDOC ---
Subjective Date Seen The patient was seen on 07/02/19. Subjective Chief Complaint/HPI chronic stable abdominal pain Constitutional: Denies: Chills ENT: Denies: Head Aches Skin: Denies: Rash Pulmonary: Denies: Dyspnea, Cough Cardiovascular: Denies: Chest Pain, Palpitations Gastrointestinal: Reports: Abdominal Pain; Denies: Nausea, Vomiting Objective Physical Examination General Exam: Positive: Alert Eye Exam: Positive: PERRLA, Conjunctiva & lids normal ENT Exam: Positive: Ext Auditory Canal Nml Neck Exam: Negative: JVD Chest Exam: Positive: Clear to auscultation Abdomen Exam: Positive: Normal bowel sounds, Soft Extremity Exam: Negative: Edema Skin Exam: Negative: Rash Assessment /Plan Problems (1) Comfort measures only status Status: Chronic Problem Text: case dw PCP Dr. Sanchez-he and I feel patient would be an excellent palliative care candidate-consult placed-plans to see 07/01 and then dc in AM (2) High output ileostomy Status: Acute Problem Text: stable ostomy output/volume status/lytes (3) Constipation Status: Acute Problem Text: resumed HD lactulose 15 TID, sen/doc 2 BID (4) Diabetes mellitus type 2 in obese Status: Chronic Problem Text: BG high 100s on SSLI (diet controlled at home) (5) Chronic abdominal pain Status: Acute Problem Text: 06/30 resumed HD HM 12 q3H (3 4 mg tabs q3H=24 tabs QD)(96 mg QD) which she has been on since 03/13/19-prior was 8 q3H (6) Opioid use disorder Problem Text: as per chronic abdominal pain (7) Pruritus ani Status: Chronic Problem Text: 07/01 + topical absorbase 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?: Yes VS, I&O, 24H, Fishbone Vital Signs/I&O Vital Signs Date Time Temp Pulse Resp B/P (MAP) Pulse Ox O2 Delivery O2 Flow Rate FiO2 07/02/19 14:37 18 07/02/19 14:00 98.0 100 121/63 (82) 100 Room Air I&O- Last 24 Hours up to 6 AM 07/02/19 06:00 Intake Total 2680 ml Output Total 2400 ml Balance 280 ml Laboratory Data 24H LABS Laboratory Tests 2 07/01/19 16:38: Bedside Glucose (Misc Panel) 201H 07/01/19 20:51: Bedside Glucose (Misc Panel) 200H 07/02/19 05:21: Immature Granulocyte % (Auto) 0.4, Neutrophils (%) (Auto) 51.2, Lymphocytes (%) (Auto) 37.1, Monocytes (%) (Auto) 9.1H, Eosinophils (%) (Auto) 1.6, Basophils (%) (Auto) 0.6, Neutrophils # (Auto) 2.5, Lymphocytes # (Auto) 1.8, Monocytes # (Auto) 0.5, Eosinophils # (Auto) 0.1, Basophils # (Auto) 0.0, Nucleated Red Blood Cells % (auto) 0.0, Anion Gap 6L, Glomerular Filtration Rate > 60.0, Calcium Level 9.7, Phosphorus Level 4.0, Albumin 3.0L 07/02/19 11:38: Bedside Glucose (Misc Panel) 338H CBC/BMP Laboratory Tests 07/02/19 05:21 Kg Bass M.D. Jul 02, 2019 15:25
[2019-07-02] MEDS: ANUSOL HC CREAM 30GM TOP SCH (21:47)
[2019-07-02 22:00] VITALS: BP 119/65
[2019-07-03] MEDS: HYDROmorphone (DILAUDID) 4 MG TAB PO PRN ×4 (01:47→14:21)
[2019-07-03] MEDS: ENOXAPARIN 40 MG/0.4 ML SYRINGE (J1650) SC SCH (05:14)
[2019-07-03] MEDS: ONDANSETRON 4MG/2ML VIAL (J2405) IV PRN ×2 (05:14→12:02)
[2019-07-03] MEDS: SODIUM CHLORIDE 0.9% INJ 10 ML SYR IV PRN ×2 (05:16→12:04)
[2019-07-03 06:00] VITALS: BP 116/63
[2019-07-03] MEDS: LACTULOSE 20 GM/30 ML SYRUP UD PO SCH ×2 (08:51→16:36)
[2019-07-03] MEDS: VITAMIN D 1,000 INTERNATIONAL UNITS TABLET PO SCH (08:52)
[2019-07-03] MEDS: METOCLOPRAMIDE 10 MG TAB PO SCH ×3 (08:52→16:36)
[2019-07-03] MEDS: SIMETHICONE 80 MG CHEW TAB PO SCH ×2 (08:52→12:03)
[2019-07-03] MEDS: SUCRALFATE 1 GM TAB PO SCH (08:52)
[2019-07-03] MEDS: SENOKOT S TAB PO SCH (08:52)
[2019-07-03] MEDS: AMITRIPTYLINE 50 MG TAB PO SCH (08:52)
[2019-07-03] MEDS: HumaLOG INSULIN (NovoLOG) PER UNIT SC SCH ×2 (08:53→12:02)
[2019-07-03] MEDS: ANUSOL HC CREAM 30GM TOP SCH (08:54)
[2019-07-03] MEDS: MUPIROCIN 2% OINT 22 GM TUBE EXT SCH (08:56)
[2019-07-03] MEDS: SODIUM CHLORIDE 0.9% INJ 10 ML SYR IV SCH (08:56)
[2019-07-03] MEDS: TRIAMCINOLONE ACET 0.1% CREAM 80 GM TOP SCH (08:57)
[2019-07-03 14:00] VITALS: BP 138/71
--- NOTE | 2019-07-03 20:13 | DSES ---
DATE OF ADMISSION: 06/29/2019 DATE OF DISCHARGE: 07/03/2019 DISCHARGE DIAGNOSES: 1. Short gut syndrome with chronic ostomy with secondary high output diarrhea and electrolyte abnormality, recurrent dehydration. 2. Chronic multifactorial abdominal pain. 3. Recurrent small bowel obstruction. 4. Asthma, mild, intermittent. 5. Diabetes mellitus type 2 with peripheral neuropathy, insulin dependent. 6. Gastroesophageal reflux disease (GERD). 7. Recurrent nephrolithiasis. 8. Opioid use disorder. 9. History of venous thromboembolism (VTE). HOSPITAL COURSE: The patient was admitted with a flare of her chronic abdominal pain which I feel a large part was more functionally related to the fact that she had recently been discharged from hospice care. She had recently been discharged from hospice care given she had been on it for over 6 months. The patient was generally overall stressed regarding this. On admission, her abdomen had normal bowel sounds without distention. She had no fevers, chills, white count was 4.8. She did have signs of mild dehydration with a lactic acid of 2.6, but her BUN and creatinine was 6 and 0.5 with a normal CMP. Her CT abdomen and pelvis showed mildly distended fluid filled loops of small bowel without obvious obstruction. She was initially placed on IV Dilaudid and IV fluids but was quickly weaned back to her baseline Dilaudid 12 mg every 3 hours and her IV fluids were stopped after a day, advancing to her baseline diet. Of note, while she was in her before food blood sugars were 190-250 without hypoglycemia. We had placed a palliative care consult that was agreed upon by the patient's primary care provider (PCP), Dr. Sanchez, on 07/01/2019, but by 3 days later the palliative care provider had not shown for the consult after multiple attempts to contact her. Therefore, we will plan on setting this up as an outpatient. The patient was discharged to home on her routine medications. She did state she was "completely out" of her Dilaudid, therefore a 2 day course was e-scribed until her PCP could sort out what she should have on Friday. She also stated she needed a refill on her "insulin," although inpatient she has been only on sliding scale Levemir and there is no insulin on her current medication list, therefore I will defer that also to her PCP, but more than likely she will need a basal bolus regimen.
== END 2019-07-03 16:53 | disposition home or self-care (01) | DRG 247 ==
LOC: M ED 19:10 → M ED INP 23:34 → ENRESERV 23:55 → M PCU 06-30 00:24 → M MSPAV 06-30 16:45
PROVIDERS: ADMIT Internal Medicine; ATTEND Family Medicine
DX: K56.609 Unspecified intestinal obstruction, unspecified as to partial versus complete obstruction (principal); E11.42 Type 2 diabetes mellitus with diabetic polyneuropathy; K91.2 Postsurgical malabsorption, not elsewhere classified; E11.65 Type 2 diabetes mellitus with hyperglycemia; Z90.49 Acquired absence of other specified parts of digestive tract; Z93.2 Ileostomy status; Z90.79 Acquired absence of other genital organ(s); Z79.899 Other long term (current) drug therapy; Z91.041 Radiographic dye allergy status; Z91.040 Latex allergy status; Z88.0 Allergy status to penicillin; Z88.1 Allergy status to other antibiotic agents; Z88.2 Allergy status to sulfonamides; Z88.4 Allergy status to anesthetic agent; Z88.5 Allergy status to narcotic agent; Z88.6 Allergy status to analgesic agent; Z88.8 Allergy status to other drugs, medicaments and biological substances; Z91.018 Allergy to other foods; Z91.048 Other nonmedicinal substance allergy status; Z68.24 Body mass index [BMI] 24.0-24.9, adult; G89.29 Other chronic pain; R10.9 Unspecified abdominal pain; F11.10 Opioid abuse, uncomplicated; K59.00 Constipation, unspecified; L29.0 Pruritus ani; J45.909 Unspecified asthma, uncomplicated; Z86.718 Personal history of other venous thrombosis and embolism; N20.0 Calculus of kidney; E86.0 Dehydration; K21.9 Gastro-esophageal reflux disease without esophagitis

== ENCOUNTER → 2019-06-29 | Outpatient (CLI) | payer OTHER ==
[~2019-06-29] MED LIST changes: +MUPI2OI EXT; +ONDA4INJ4; +ONDA4INJ4 IM; -ONDA4INJ48; -ONDA4INJ48 IM; -SODIUM CHLORIDE 0.9% INJ 10 ML SYR IV SCH; +TRIA1CR80 TOP; +VITAD1000T PO
--- NOTE | 2019-07-15 02:24 | ECWPNPC ---
PATIENT NAME: GLENN FELDER : 1960 GENDER: FEMALE VISIT DATE: 06/29/2019 DISCHARGE DATE: 06/29/19 1201 VISIT LOCKED DATE TIME: PHYSICIAN: NAVNEET BRAY RESOURCE: NAVNEET BRAY REASON FOR APPOINTMENT 1. HEAD/NECK-IN WR HISTORY OF PRESENT ILLNESS HISTORY OF PRESENT ILLNESS: HERE FOR FOLLOW-UP OF PERSISTENT RIGHT NECK AND SHOULDER PAIN. IT IS BEEN SEVERAL MONTHS SINCE HER LAST VISIT. LAST VISIT WAS FOR TRIGGER POINTS FOR CHRONIC ABDOMINAL PAIN WHICH PATIENT STATES WERE INEFFECTIVE. HISTORY OF MULTIPLE ABDOMINAL SURGERIES AND CHRONIC ABDOMINAL PAIN. USES DORSAL COLUMN STIMULATOR FOR LEFT LEG PAIN, WHICH IS HELPFUL. CURRENTLY MEDICINE MANAGEMENT FOR CHRONIC PAIN IS MANAGED BY PRIMARY CARE. PATIENT WOULD LIKE TO HAVE TRIGGER POINT INJECTIONS AGAIN TO HER RIGHT NECK AND SHOULDER. THIS IS HER CHIEF AREA OF PAIN. RATING PAIN LEVEL A 5-10 OVER 10 VAS. PAIN THE PATIENT DESCRIBES THE PAIN... FALL RISK SCREENING: SCREENING :NO FALLS REPORTED IN THE LAST YEAR CURRENT MEDICATIONS TAKING MAY SVAAGE BAGS CLEAR VELCRO CLOSER ([id number]) ICD:V55.3 CHANGE NEEDED (EDUARD) TAKING MAY HAVE SAVAGE WAFERS NEW IMAGE SKIN BARRIERS FLATING FLANGES ICD: V55.3 ([id number] 2 1/2 CHANGE NEEDED (EDUARD) TAKING BABY WIPES 1 MISCELLANEOUS DIRECTED TOPICALLY PRN DX:569.62 TAKING IPRATROPIUM-ALBUTEROL 0.5-2.5 (3) MG/3ML SOLUTION 3 ML INHALATION EVERY 6 HRS PRN TAKING SIMETHICONE 80 MG TABLET CHEWABLE 2 TABLETS AFTER MEALS AND AT BEDTIME NEEDED ORALLY THREE TIMES A DAY NEEDED FOR ABDOMINAL PAIN AND DISTENTION TAKING SYRINGE 2-3 ML 3 ML MISCELLANEOUS DX: R11.0 INTRAMUSCULARLY TID PRN TAKING NYSTATIN [id number] UNIT/GM POWDER APPLY TO AFFECTED AREA(S) AROUND STOMA 2 TIMES A DAY DIRECTED UNTIL HEALED TAKING LACTULOSE 20 GM/30ML SOLUTION 15 ML ORALLY THREE TIMES DAILY TAKING AMITRIPTYLINE HCL 50 MG TABLET DIRECTED ORALLY 1 TAB IN AM AND 3 TABS AT BEDTIME TAKING SUCRALFATE 1 GM TABLET 1 TAB ORALLY TWICE A DAY TAKING ALBUTEROL SULFATE HFA 108 (90 BASE) MCG/ACT AEROSOL SOLUTION 2 PUFFS NEEDED INHALATION EVERY 4 HRS PRN TAKING ZOFRAN 4 MG/2ML SOLUTION 4 MG INJECTION BID AT LEAST 8H APART, NOTES: 7 9PM TAKING PEDIALYTE BOTTLE SOLUTION 330 ML ORALLY THREE TIMES DAILY TAKING HOSPITAL BED USE DAILY DIRECTED DX: K91.2, G89.4, G90.522, N81.84 TAKING TRIAMCINOLONE ACETONIDE 0.1 % CREAM APPLY A THIN LAYER TO RED AREAS ON FINGERS EXTERNALLY TWICE A DAY TAKING MUPIROCIN 2 % OINTMENT 1 APPLICATION TO 2 AREAS ON L BREAST AND R CHEST WALL BID EXTERNALLY 30 DAYS TAKING HYDROMORPHONE HCL 4 MG TABLET 3 TABLETS ORALLY EVERY 3 HOURS NEEDED MDD: 24 TABS TAKING GLUCOMETER TESTING 4 TIMES A DAY AND NEEDED DX: , NOTES: MEDICAID #: [id number] TAKING TEST STRIPS - - DX: FOUR TIMES DAILY NEEDED, NOTES: MEDICAID #: [id number] TAKING LANCETS MISC. - MISCELLANEOUS - DX: FOUR TIMES DAILY NEEDED, NOTES: MEDICAID #: [id number] TAKING METOCLOPRAMIDE HCL 10 MG TABLET 1 TABLET BEFORE MEALS AND BEDTIME ORALLY FOUR TIMES DAILY NOT-TAKING METOCLOPRAMIDE HCL 5 MG/5ML SOLUTION 10 MG (10ML) ORALLY 30 MINUTES BEFORE MEALS AND AT BEDTIME NEEDED, NOTES: 10/12 8PM NOT-TAKING DOXYCYCLINE MONOHYDRATE 100 MG TABLET 1 TABLET ORALLY EVERY 12 HRS NOT-TAKING PREDNISONE 50 MG TABLET 1 TABLET ORALLY ONCE A DAY NOT-TAKING ONDANSETRON HCL 4 MG/2ML SOLUTION 4MG (2MLS) DIRECTED TWO TIMES A DAY AT LEAST 8 HOURS APART INJECTION 2 TIMES DAILY AT LEAST 8 HRS APART NOT-TAKING PEDIALYTE - SOLUTION DRINK 330MLS BY MOUTH THREE TIMES A DAY , NOTES: DUPLICATE NOT-TAKING ASTELIN 137 MCG/SPRAY SOLUTION 1 PUFF IN EACH NOSTRIL NASALLY TWICE A DAY, NOTES: 10/12 8PM NOT-TAKING TIZANIDINE HCL 2 MG TABLET 1/2 TABLET ORALLY TWICE A DAY, NOTES: 10/12 8PM NOT-TAKING MIRALAX 1 SUSPENSION 17 GRAMS ORALLY TWICE DAILY NOT-TAKING LORAZEPAM 0.5 MG TABLET 1 TABLET ORALLY OR SUBLINGUAL EVERY 4 HRS NEEDED FOR AGITATION OR ANXIETY MDD 3 MG NOT-TAKING LEVSIN 0.125 MG TABLET 1 TABLET NEEDED PO OR SUBLINGUALLY EVERY 4 HRS MDD 6 TABS MEDICATION LIST REVIEWED AND RECONCILED WITH THE PATIENT PAST MEDICAL HISTORY DM II WITH NEUROPATHY, HBA1C GOAL IS 8.0 FOR NOW B/C OF RISK OF HYPOGLYCEMIA, CONSIDER LOWER IF CONSISTENTLY ACHIEVED ASTHMA HYPERLIPIDEMIA GERD NEPHROLITHIASIS 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 ALLERGIC RHINITIS CHRONIC MAXILLARY SINUSITIS CHRONIC HEADACHES (PAIN MANAGEMENT) CHRONIC PAIN SYNDROME/RSD (PAIN MANAGEMENT) PERSONAL HISTORY OF VENOUS THROMBOSIS AND EMBOLISM (RESOLVED 12/19/2009) ABDOMINAL HERNIA ALLERGIES IODINE: NERVES, TIGHT MUSCLES - SIDE EFFECTS GABAPENTIN: NERVOUS SYSTEM,SHAKEY - SIDE EFFECTS GABITRIL: NERVOUS - SIDE EFFECTS KETOROLAC TROMETHAMINE: VOMITING - SIDE EFFECTS MEPERIDINE HCL: OUT OF BODY EXPERIENCE - SIDE EFFECTS MORPHINE SULFATE: SEVERE H/A WITH BIG DOSE - SIDE EFFECTS PROMETHAZINE HCL: OUT OF BODY EXPERIENCE - SIDE EFFECTS TRAMADOL: SHAKES - SIDE EFFECTS OXYCODONE: VOMITING,HIVES - ALLERGY PENICILLIN (FOR ALLERGIES USE ONLY): HIVES - ALLERGY FENTANYL: NERVOUS - SIDE EFFECTS DROPERIDOL: OUT OF BODY - SIDE EFFECTS CODEINE SULFATE: OUT OF BODY EXPERIENCE - SIDE EFFECTS PHENOTHIAZINES: NERVOUS SYSTEM - SIDE EFFECTS QUINOLONES- CIPRO,TEQUIN: HIVES - ALLERGY RED FOOD DYE: RASH - ALLERGY LIDODERM (LICOCANINE): HEART RACES - SIDE EFFECTS SULFA: HIVES - ALLERGY ASPIRIN: HIVES - ALLERGY ATIVAN: HALLUCINATIONS - SIDE EFFECTS AZITHROMYCIN: HIVES - ALLERGY BACLOFEN: AFFECTED NERVOUS SYT - SIDE EFFECTS LYRICA: SHAKES, EVERYTHING IS BLACK - SIDE EFFECTS VICODIN: CONFUSION - SIDE EFFECTS MACROBID: HIVES, BLURRED VISION - ALLERGY READI-CAT: HIVES - ALLERGY ALBUTEROL SULFATE: COUGH - ALLERGY GASTROGRAFIN: ONLY 1 BOTTLE PER TEST DAY (CAN NOT TOLERATE ANY MORE THAN 1 BOTTLE) - CONTRAINDICATION LATEX (FOR ALLERGY USE ONLY): DIFFICULTY - ALLERGY SURGICAL HISTORY NO PERSONAL HX OF SEVERE REACTION TO ANESTHESIA, HER BROTHER HAS "HAD HIS THROAT CLOSE OFF TWO DIFFERENT TIMES" WITH GENERAL ANESTHESIA SCALP TUMOR 1984 LUMPECTOMIES - REPORTED BENIGN BILATERAL 16 AND 21 YO TOTAL HYSTERECTOMY-DUE TO OVARIAN CYSTS/MASS 21 YO BILAT SYMPATHECTOMY 1987 AV FISTULA REPAIR L LEG 1988 CHOLECYSTECTOMY LATE SBO 2001 ABDOMINAL HERNIA REPAIR 2004 VENTRAL HERNIA REPAIR 2009 DORSAL COLUMN STIMULATOR TAKEN OUT AND NEW ONE IMPLANTED 02/21 SMALL PORTION OF SMALL BOWEL RESECTED AND VENTRAL HERNIA REPAIRS (CINTHIA) 06/2010 ILEOSTOMY-EDUARD 07/28/12 CYST REMOVED RIGHT NOSTRIL- DR RAJPUT. 09/17/12 REPAIR TWO HERNIAS AND REPAIR OF STOMA 03/26 HERNIA REPAIR X2 08/31/13 PARASTOMAL HERNIA REPAIR- EDUARD 06/26 HERNIA AND STOMA REPAIR-EDUARD 06/11 PERASTOMAL HERNIA REPAIR, WITH A SMALL BOWEL OBSTRUCTION 03/2017 INFUSAPORT PLACMENT ([facility]) 08/2017 HERNIA REPAIR X4 STOMA REVERSAL 10/2017 BATTERY REPLACEMENT FOR STIMULATOR 02/2018 FAMILY HISTORY FATHER: ALIVE, CANCER, DIAGNOSED WITH UNSPECIFIED CEREBRAL ARTERY OCCLUSION WITH CEREBRAL INFARCTION, OTHER MALIGNANT NEOPLASM OF UNSPECIFIED SITE MOTHER: , OF MYELODYSPLASTIC SYNDROME; WAS ALSO KNOWN TO HAVE CAD, OTHER MALIGNANT NEOPLASM OF UNSPECIFIED SITE SIBLINGS: ALIVE 1 BROTHER(S) - HEALTHY. 2 BROTHERS DM, KIDNEY FAILURE. SOCIAL HISTORY GENERAL: TOBACCO USE ARE YOU A:NONSMOKER NEVER SMOKER HIV / HEP-C SCREENING HIV TEST OFFERED TO PATIENT:YES DATE OFFERED:07/18/2016 TEST ACCEPTED:NO HEP-C TEST OFFERED TO PATIENT:YES DATE OFFERED:07/18/2016 REASON:PATIENT DECLINED TEST ACCEPTED:NO REASON:PATIENT DECLINED OTHERS AT HOME: NONE. EDUCATION LEVEL OF EDUCATION:[employer] 8TH GRADE DIET: NO CONCENTRATED SWEETS., CARBOHYDRATE CONTROLLED. LANGUAGE LANGUAGES SPOKEN:LIBYAN DOMESTIC VIOLENCE DO YOU FEEL SAFE IN YOUR ENVIRONMENT?YES NEW PATIENT PAIN DIARY FROM 0-10, WHAT LEVEL IS YOUR PAIN TODAY?10 RECREATIONAL DRUG USE DRUG USE?NO EXERCISE: NO REGULAR EXERCISE. LEARNING BARRIERS / SPECIAL NEEDS CHANGE FROM LAST VISIT?NO BARRIERS TO LEARNING?NO HEARING IMPAIRED?NO VISION IMPAIRED?YES COGNITIVELY IMPAIRED?NO :CORRECTIVE LENSES READINESS TO LEARN?YES LEARNING PREFERENCES?NO LEARNING CAPABILITIES PRESENT?YES EMOTIONAL BARRIERS?NO SPECIAL DEVICES?YES :CANE, WHEELCHAIR OCCUPANCY SPECIALIST NEEDED?NO PAIN CLINIC PFS, CLERGY, PUBLIC HEALTH REFERRALS PFS REFERRAL NEEDED?NO CLERGY REFERRAL NEEDED?NO PUBLIC HEALTH REFERRAL NEEDED?NO WAS THE PROVIDER NOTIFIED OF ANY PERTINENT INFO?YES HAS THE PATIENT BEEN EDUCATED REGARDING HIS/HER PLAN OF CARE?YES HAS THE PATIENT BEEN EDUCATED REGARDING PAIN, THE RISK FOR PAIN, THE IMPORTANCE OF EFFECTIVE PAIN MANAGEMENT, AND THE PAIN ASSESSMENT PROCESS?YES LATEX QUESTIONNAIRE LATEX ALLERGY : HAVE YOU EVER DEVELOPED ANY TYPE OF REACTION AFTER HANDLING LATEX PRODUCTS SUCH RUBBER GLOVES, CONDOMS, DIAPHRAGMS, BALLOONS, SOCKS, OR UNDERWEAR?YES SEE ALLERGY LIST - PLEASE INDICATE :OTHER (DOCUMENT IN NOTES) LATEX ALLERGY : HAVE YOU EVER DEVELOPED ANY TYPE OF REACTION DURING OR AFTER DENTAL APPOINTMENT, VAGINAL/RECTAL EXAMINATION, SURGICAL PROCEDURE, OR ANY OTHER EXPOSURE?YES - PLEASE INDICATE :DENTAL PROCEDURE, VAGINAL EXAM, RECTAL EXAM, SURGICAL PROCEDURE, OTHER (DOCUMENT IN NOTES) LATEX RISK : HAVE YOU EVER HAD ANY DIFFICULTY BREATHING OR HIVES AFTER EATING OR HANDLING ANY FRUITS, OR VEGETABLES; SUCH KIWI, BANANAS, STONE FRUITS, OR CHESTNUTSYES - PLEASE INDICATE : BANANAS, STONE FRUITS LATEX RISK : DO YOU HAVE A PREVIOUS PERSONAL HISTORY OF MORE THAN NINE SURGERIES, SPINA BIFIDA, OR REPEATED CATHERIZATIONS? YES - PLEASE INDICATE : > 9 SURGERIES LATEX RISK : ARE YOU FREQUENTLY EXPOSED TO LATEX PRODUCTS IN YOUR OCCUPATION?NO DATE ASKED : 06/29/2019 CAFFEINE CAFFEINE USE?NO ADVANCE DIRECTIVE ADVANCE DIRECTIVE DISCUSSED WITH PATIENT:YES HCP - BROTHER (LUCAS); COPY PLACED IN RECORDS CAODAISM [id number] PRESBYTERIAN MARITAL STATUS: SINGLE. ALCOHOL SCREENING DID YOU HAVE A DRINK CONTAINING ALCOHOL IN THE PAST YEAR?NO POINTS0 INTERPRETATIONNEGATIVE OCCUPATION: DISABLED. SEXUAL HX HAD SEX IN THE LAST 12 MONTHS (VAGINAL, ORAL, OR ANAL)?NO HAVE YOU EVER HAD AN STD?NO HOSPITALIZATION/MAJOR DIAGNOSTIC PROCEDURE [facility]- SMALL BOWEL OBSTRUCTION, WAS IN HOSPITAL 11 DAYS 09/2015 [facility]- SMALL BOWEL OBSTRUCTION, WAS IN HOSPITAL IN 5 DAYS 03/2016 [facility]- SMALL BOWEL OBSTRUCTION 04/12/16-04/17/16 [facility]- SMALL BOWEL OBSTRUCTION 06/2016 [facility]- SMALL BOWEL OBSTRUCTION 03/17/17-04/18/17 [facility] - SMALL BOWEL OBSTRUCTION, PNEUMONIA, PSEUDOGOUT 11/2018 [facility] - SMALL BOWEL OBSTRUCTION 02/2019 REVIEW OF SYSTEMS REVIEWED BY: PROVIDER: NAVNEET SANABRIA . CONSTITUTIONAL: ANY CHANGE IN YOUR MEDICAL CONDITION? NO . CHILLS NO . FEVER NO . INFECTION: DO YOU HAVE NEW INFECTIONS? NO . DO YOU HAVE HISTORY OF MRSA? NO . MUSCULOSKELETAL: ANY NEW PATTERNS OF PAIN OR NUMBNESS? NO . GASTROENTEROLOGY: ANY NEW CHANGE IN BOWEL CONTROL? NO . GENITOURINARY: ANY NEW CHANGE IN BLADDER CONTROL? NO . IS THERE A CHANCE YOU COULD BE ? NO . HEMATOLOGY/LYMPH: DO YOU TAKE ANY BLOOD THINNERS? (FOR EXAMPLE- COUMADIN, PLAVIX, AGGRENOX, PLATEL, PRADAXA, OR XARELTO) NO . WHEN WAS YOUR LAST DOSE? DATE: TIME: . NEUROLOGY: HAVE YOU FALLEN IN THE PAST 12 MONTHS? YES, PT STATES THAT SHE TRIPPED AT HOME, 13 WEEKS AGO, BROKE FOOT, FOOT BEING EVALUATED BY PEDIATRIST . ANY NEW EXTREMITY NUMBNESS OR WEAKNESS? NO . CARDIOLOGY: DO YOU HAVE A PACEMAKER OR DEFIBRILLATOR? NO . RESPIRATORY: HAVE YOU BEEN SICK IN THE PAST WEEK? NO . FEVER NO . FLU LIKE SYMPTOMS? NO . COUGH NO . INTEGUMENTARY: DO YOU HAVE ANY RASHES OR OPEN SORES? NO . ALLERGIC/IMMUNO: ARE YOU ALLERGIC TO IV DYE? NO . ANY NEW ALLERGIES? NO . PSYCHIATRIC: DO YOU HAVE THOUGHTS OF HURTING YOURSELF OR SOMEONE ELSE? NO . ARE YOU ABUSED, NEGLECTED, OR IN AN UNSAFE ENVIRONMENT? NO . ENDOCRINOLOGY: ARE YOU DIABETIC? YES, PT STATES THAT SHE IS NOT TESTING FSBS DUE TO FAULTY EQUIPMENT. DS . OTHER: DO YOU NEED ANY PRESCRIPTIONS? NO . IF YES, PLEASE LIST: ____ . ANY NEW PROBLEMS WITH YOUR MEDICATIONS? NO . WHEN DID YOU LAST EAT? ____ . WHEN DID YOU LAST DRINK? ____ . WHAT DID YOU LAST DRINK? ____ . NAME OF PERSON DRIVING YOU HOME? ____ . DO YOU HAVE ANY OTHER QUESTIONS OR CONCERNS PT STATES THAT SHE HAS BEEN OFF HOSPICE FOR 3 WEEKS . VITAL SIGNS WT 158.0 LBS, HT 67 IN, BMI 24.74 INDEX, BP 92/53 MM HG, HR 80 /MIN, RR 16 /MIN, TEMP 98.2 F, OXYGEN SAT % 94, SAFE IN ENV? (Y/N) Y, REVIEWED BY: DS. EXAMINATION GENERAL EXAMINATION: GENERALAWAKE,ALERT ,PLEAASANT . PSYCHAFFECT NORMAL . LUNGS:LUNG ROGERS ARE CLEAR TO AUSCULTATION BILATERALLY. GOOD MOVEMENT OF AIR . HEART:S1, S2 IN A REGULAR RATE AND RHYTHM. NO SIGNIFICANT MURMURS, RUBS OR GALLOPS NOTED . CERVICAL:TRIGGER POINTS: CERVICAL AND TRAPEZIUS BILAT R>L..PAIN IS AGGREVATED WITH ROJM NECK . ASSESSMENTS MYALGIA OF MUSCLE OF NECK - M79.18 (PRIMARY) TREATMENT MYALGIA OF MUSCLE OF NECK NOTES: TPI RIGHT NECK/SHOULDER/OCCIPITALCONTINUE HOME STRETCHING EXERCISES. PREVENTIVE MEDICINE PAIN CLINIC TEACHING: THE PATIENT HAS BEEN EDUCATED REGARDING HIS/HER PLAN OF CARE : DISCUSSED AND REVIEWED WRITTEN AND VERBAL INSTRUCTIONS WITH PATIENT REGARDING TREATMENT PLAN, PT ACKNOWLEDGED UNDERSTANDING. DS PROCEDURE CODES [id number] ESTABILISHED PATIENT [facility] CHARGE DISPOSITION & COMMUNICATION FOLLOW UP POST (REASON: TPI RIGHT NECK/SHOULDER/OCCIPITAL) ELECTRONICALLY SIGNED BY DANIELE MCKEON ON 07/14/2019 AT 12:03 PM EDT DISCLAIMER : THIS IS A VISIT SUMMARY EXTRACTED FROM THE [employer] CHART. IT IS NOT A COPY OF THE [employer] PROGRESS NOTE. MARLYN
== END ==
LOC: M PAIN 10:30
PROVIDERS: ATTEND Nurse Practitioner Family
DX: M79.18 Myalgia, other site (principal); E11.40 Type 2 diabetes mellitus with diabetic neuropathy, unspecified; J45.909 Unspecified asthma, uncomplicated; E78.5 Hyperlipidemia, unspecified; K21.9 Gastro-esophageal reflux disease without esophagitis; J32.0 Chronic maxillary sinusitis; G89.4 Chronic pain syndrome; Z79.899 Other long term (current) drug therapy; Z88.0 Allergy status to penicillin; Z88.5 Allergy status to narcotic agent; Z88.8 Allergy status to other drugs, medicaments and biological substances; Z88.2 Allergy status to sulfonamides; Z88.6 Allergy status to analgesic agent; Z91.040 Latex allergy status

== ENCOUNTER → 2019-07-16 | Outpatient (REF) | payer OTHER ==
[~2019-07-16] MED LIST changes: +MUPI2OI EXT; +TRIA1CR80 TOP; +VITAD1000T PO
== END ==
LOC: M SFHCPLAZ 10:07
PROVIDERS: ATTEND Family Medicine
DX: N75.0 Cyst of Bartholin's gland (principal)

== ENCOUNTER 2019-07-22 12:33 | Outpatient (CLI) | payer OTHER ==
[~2019-07-22] VITALS: Ht 165.1 cm; Wt 69.8 kg
[~2019-07-22 12:33] MED LIST changes: +SODIUM CHLORIDE 0.9% INJ 10 ML SYR IV SCH
[2019-07-22 12:40] VITALS: BP 131/53
[2019-07-22 13:52] LABS: HEMOGLOBIN A1c 11.9 %
== END 2019-07-22 13:35 | disposition home or self-care (01) ==
LOC: M INFU 12:33
PROVIDERS: ATTEND Family Medicine
DX: E11.65 Type 2 diabetes mellitus with hyperglycemia (principal); E83.42 Hypomagnesemia
CPT/HCPCS: 36591; 83036; 83735; J1642

== ENCOUNTER → 2019-07-28 | Outpatient (CLI) | payer OTHER ==
[~2019-07-28] MED LIST changes: -SODIUM CHLORIDE 0.9% INJ 10 ML SYR IV SCH
--- NOTE | 2019-08-03 01:05 | ECWPNPC ---
PATIENT NAME: GLENN FELDER : 1960 GENDER: FEMALE VISIT DATE: 07/28/2019 DISCHARGE DATE: 07/28/19 1150 VISIT LOCKED DATE TIME: PHYSICIAN: ELLIS HECTOR MD RESOURCE: ELLIS HECTOR MD REASON FOR APPOINTMENT 1. PATIENT DOES NOT HAVE COMPUTER AND ONLY HAS HOUSE PHONE- CAN WE DO A PHONE CALL HISTORY OF PRESENT ILLNESS HISTORY OF PRESENT ILLNESS: PAIN THE PATIENT DESCRIBES THE PAIN... PERMISSION FROM PATIENT WAS RECEIVED TO DO TELEPHONE OFFICE VISIT. 58 YEAR OLD FEMALE PATIENT WITH A HISTORY OF CHRONIC NECK AND SHOULDER PAIN. THE PATIENT DESCRIBES THE PAIN ACHING, BURNING, IT COMES AND GOES, SHARP, STABBING, TENDER, THROBBING, SORE, SHOOTING WITH A PAIN SCORE OF 6-10/10 DEPENDING ON PHYSICAL ACTIVITY. THE PATIENT STATES HER [employer] DCS IMPLANT IS GREATLY HELPING WITH HER LOW BACK AND LEG PAIN. THE PATIENT SAYS SHE ALSO HAS ABDOMINAL PAIN, AND TRIED TO HAVE HER DCS IMPLANT COVER THE PAIN, HOWEVER IT CAUSED PAIN DOWN HER LEGS AND SHE WAS UNABLE TO WALK DUE TO THE PAIN. THE PATIENT SAYS SHE HAS TRIED ZANAFLEX IN THE PAST. THE PATIENT SAYS DR. BRAN, HER PRIMARY CARE PROVIDER, IS PRESCRIBING PAIN MEDICATION FOR HER AND IT IS HELPING WITH HER PAIN, BUT SHE IS STILL EXPERIENCING SOME MUSCLE SPASMS. THE PATIENT DENIES UNEXPLAINED WEIGHT LOSS, FEVER, CHILLS, NEW CHANGES IN HER URINARY OR BOWEL CONTROL. FALL RISK SCREENING: SCREENING :NO FALLS REPORTED IN THE LAST YEAR CURRENT MEDICATIONS TAKING IPRATROPIUM-ALBUTEROL 0.5-2.5 (3) MG/3ML SOLUTION 3 ML INHALATION EVERY 6 HRS PRN TAKING METOCLOPRAMIDE HCL 5 MG/5ML SOLUTION 10 MG (10ML) ORALLY 30 MINUTES BEFORE MEALS AND AT BEDTIME NEEDED, NOTES: 7/1 8PM TAKING SIMETHICONE 80 MG TABLET CHEWABLE 2 TABLETS AFTER MEALS AND AT BEDTIME NEEDED ORALLY THREE TIMES A DAY NEEDED FOR ABDOMINAL PAIN AND DISTENTION TAKING AMITRIPTYLINE HCL 50 MG TABLET DIRECTED ORALLY 1 TAB IN AM AND 3 TABS AT BEDTIME TAKING ALBUTEROL SULFATE HFA 108 (90 BASE) MCG/ACT AEROSOL SOLUTION 2 PUFFS NEEDED INHALATION EVERY 4 HRS PRN TAKING PEDIALYTE BOTTLE SOLUTION 330 ML ORALLY THREE TIMES DAILY TAKING METOCLOPRAMIDE HCL 10 MG TABLET 1 TABLET BEFORE MEALS AND BEDTIME ORALLY THREE TIMES DAILY BEFORE MEALS, NOTES: FREQUENCY CHANGE TAKING AMMONIUM LACTATE 12 % CREAM 1 APPLICATION EXTERNALLY TWICE A DAY TO FEET TAKING ALCOHOL PREP PAD 70 % PAD DIRECTED E11.9 TEST BLOOD SUGAR QID PRN TAKING MAY SAVAGE BAGS CLEAR VELCRO CLOSER ([id number]) ICD:V55.3 CHANGE NEEDED (EDUARD) TAKING MAY HAVE SAVAGE WAFERS NEW IMAGE SKIN BARRIERS FLATING FLANGES ICD: V55.3 (32273 2 1/2 CHANGE NEEDED (EDUARD) TAKING BABY WIPES 1 MISCELLANEOUS DIRECTED TOPICALLY PRN DX:569.62 TAKING SYRINGE 2-3 ML 3 ML MISCELLANEOUS DX: R11.0 INTRAMUSCULARLY TID PRN TAKING NYSTATIN [id number] UNIT/GM POWDER APPLY TO AFFECTED AREA(S) AROUND STOMA 2 TIMES A DAY DIRECTED UNTIL HEALED TAKING LACTULOSE 20 GM/30ML SOLUTION 15 ML ORALLY THREE TIMES DAILY TAKING SUCRALFATE 1 GM TABLET 1 TAB ORALLY TWICE A DAY TAKING ZOFRAN 4 MG/2ML SOLUTION 4 MG INJECTION BID AT LEAST 8H APART, NOTES: 10/12 9PM TAKING HOSPITAL BED USE DAILY DIRECTED DX: K91.2, G89.4, G90.522, N81.84 TAKING GLUCOMETER TESTING 4 TIMES A DAY AND NEEDED DX: E11, NOTES: MEDICAID #: [id number] TAKING TEST STRIPS - - DX: E11.65 FOUR TIMES DAILY NEEDED, NOTES: MEDICAID #: [id number] TAKING LANCETS MISC. - MISCELLANEOUS - DX: E11.65 FOUR TIMES DAILY NEEDED, NOTES: MEDICAID #: [id number] TAKING PEN NEEDLES 08/27" DIRECTED SUBCUTANEOUSLY DAILY DX: E11.65 TAKING HYDROMORPHONE HCL 4 MG TABLET 2 TABLETS ORALLY EVERY 3 HOURS NEEDED MDD: 24 TABS TAKING DOXYCYCLINE MONOHYDRATE 100 MG CAPSULE 1 CAPSULE ORALLY EVERY 12 HRS NOT-TAKING PREDNISONE 50 MG TABLET 1 TABLET ORALLY ONCE A DAY NOT-TAKING ASTELIN 137 MCG/SPRAY SOLUTION 1 PUFF IN EACH NOSTRIL NASALLY TWICE A DAY NOT-TAKING TIZANIDINE HCL 2 MG TABLET 1/2 TABLET ORALLY TWICE A DAY NOT-TAKING MIRALAX 1 SUSPENSION 17 GRAMS ORALLY TWICE DAILY NOT-TAKING LORAZEPAM 0.5 MG TABLET 1 TABLET ORALLY OR SUBLINGUAL EVERY 4 HRS NEEDED FOR AGITATION OR ANXIETY MDD 3 MG NOT-TAKING LEVSIN 0.125 MG TABLET 1 TABLET NEEDED PO OR SUBLINGUALLY EVERY 4 HRS MDD 6 TABS NOT-TAKING MUPIROCIN 2 % OINTMENT 1 APPLICATION TO 2 AREAS ON L BREAST AND R CHEST WALL BID EXTERNALLY 30 DAYS NOT-TAKING TRIAMCINOLONE ACETONIDE 0.1 % CREAM APPLY A THIN LAYER TO RED AREAS ON FINGERS EXTERNALLY TWICE A DAY DISCONTINUED DOXYCYCLINE MONOHYDRATE 100 MG TABLET 1 TABLET ORALLY EVERY 12 HRS, NOTES: DUPLICATE DISCONTINUED ONDANSETRON HCL 4 MG/2ML SOLUTION 4MG (2MLS) DIRECTED TWO TIMES A DAY AT LEAST 8 HOURS APART INJECTION 2 TIMES DAILY AT LEAST 8 HRS APART, NOTES: DUPLICATE DISCONTINUED PEDIALYTE - SOLUTION DRINK 330MLS BY MOUTH THREE TIMES A DAY , NOTES: DUPLICATE MEDICATION LIST REVIEWED AND RECONCILED WITH THE PATIENT PAST MEDICAL HISTORY DM II WITH NEUROPATHY, HBA1C GOAL IS 8.0 FOR NOW B/C OF RISK OF HYPOGLYCEMIA, CONSIDER LOWER IF CONSISTENTLY ACHIEVED ASTHMA HYPERLIPIDEMIA GERD NEPHROLITHIASIS 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 ALLERGIC RHINITIS CHRONIC MAXILLARY SINUSITIS CHRONIC HEADACHES (PAIN MANAGEMENT) CHRONIC PAIN SYNDROME/RSD (PAIN MANAGEMENT) PERSONAL HISTORY OF VENOUS THROMBOSIS AND EMBOLISM (RESOLVED 12/19/2009) ABDOMINAL HERNIA FLEXURAL ECZEMA ALLERGIES IODINE: NERVES, TIGHT MUSCLES - SIDE EFFECTS GABAPENTIN: NERVOUS SYSTEM,SHAKEY - SIDE EFFECTS GABITRIL: NERVOUS - SIDE EFFECTS KETOROLAC TROMETHAMINE: VOMITING - SIDE EFFECTS MEPERIDINE HCL: OUT OF BODY EXPERIENCE - SIDE EFFECTS MORPHINE SULFATE: SEVERE H/A WITH BIG DOSE - SIDE EFFECTS PROMETHAZINE HCL: OUT OF BODY EXPERIENCE - SIDE EFFECTS TRAMADOL: SHAKES - SIDE EFFECTS OXYCODONE: VOMITING,HIVES - ALLERGY PENICILLIN (FOR ALLERGIES USE ONLY): HIVES - ALLERGY FENTANYL: NERVOUS - SIDE EFFECTS DROPERIDOL: OUT OF BODY - SIDE EFFECTS CODEINE SULFATE: OUT OF BODY EXPERIENCE - SIDE EFFECTS PHENOTHIAZINES: NERVOUS SYSTEM - SIDE EFFECTS QUINOLONES- CIPRO,TEQUIN: HIVES - ALLERGY RED FOOD DYE: RASH - ALLERGY LIDODERM (LICOCANINE): HEART RACES - SIDE EFFECTS SULFA: HIVES - ALLERGY ASPIRIN: HIVES - ALLERGY ATIVAN: HALLUCINATIONS - SIDE EFFECTS AZITHROMYCIN: HIVES - ALLERGY BACLOFEN: AFFECTED NERVOUS SYT - SIDE EFFECTS LYRICA: SHAKES, EVERYTHING IS BLACK - SIDE EFFECTS VICODIN: CONFUSION - SIDE EFFECTS MACROBID: HIVES, BLURRED VISION - ALLERGY READI-CAT: HIVES - ALLERGY ALBUTEROL SULFATE: COUGH - ALLERGY GASTROGRAFIN: ONLY 1 BOTTLE PER TEST DAY (CAN NOT TOLERATE ANY MORE THAN 1 BOTTLE) - CONTRAINDICATION LATEX (FOR ALLERGY USE ONLY): DIFFICULTY - ALLERGY SURGICAL HISTORY NO PERSONAL HX OF SEVERE REACTION TO ANESTHESIA, HER BROTHER HAS "HAD HIS THROAT CLOSE OFF TWO DIFFERENT TIMES" WITH GENERAL ANESTHESIA SCALP TUMOR 1984 LUMPECTOMIES - REPORTED BENIGN BILATERAL 16 AND 21 YO TOTAL HYSTERECTOMY-DUE TO OVARIAN CYSTS/MASS 21 YO BILAT SYMPATHECTOMY 1987 AV FISTULA REPAIR L LEG 1988 CHOLECYSTECTOMY LATE SBO 2001 ABDOMINAL HERNIA REPAIR 2004 VENTRAL HERNIA REPAIR 2009 DORSAL COLUMN STIMULATOR TAKEN OUT AND NEW ONE IMPLANTED 02/21 SMALL PORTION OF SMALL BOWEL RESECTED AND VENTRAL HERNIA REPAIRS (GOESSLIN) 06/2010 ILEOSTOMY-EDUARD 07/28/12 CYST REMOVED RIGHT NOSTRIL- DR RAJPUT. 09/17/12 REPAIR TWO HERNIAS AND REPAIR OF STOMA 03/26 HERNIA REPAIR X2 08/31/13 PARASTOMAL HERNIA REPAIR- EDUARD 06/26 HERNIA AND STOMA REPAIR-EDUARD 06/11 PERASTOMAL HERNIA REPAIR, WITH A SMALL BOWEL OBSTRUCTION 03/2017 INFUSAPORT PLACMENT ([facility]) 08/2017 HERNIA REPAIR X4 STOMA REVERSAL 10/2017 BATTERY REPLACEMENT FOR STIMULATOR 02/2018 FAMILY HISTORY FATHER: ALIVE, CANCER, DIAGNOSED WITH UNSPECIFIED CEREBRAL ARTERY OCCLUSION WITH CEREBRAL INFARCTION, OTHER MALIGNANT NEOPLASM OF UNSPECIFIED SITE MOTHER: , OF MYELODYSPLASTIC SYNDROME; WAS ALSO KNOWN TO HAVE CAD, OTHER MALIGNANT NEOPLASM OF UNSPECIFIED SITE SIBLINGS: ALIVE 1 BROTHER(S) - HEALTHY. 2 BROTHERS DM, KIDNEY FAILURE. SOCIAL HISTORY GENERAL: TOBACCO USE ARE YOU A:NONSMOKER NEVER SMOKER LATEX QUESTIONNAIRE LATEX ALLERGY : HAVE YOU EVER DEVELOPED ANY TYPE OF REACTION AFTER HANDLING LATEX PRODUCTS SUCH RUBBER GLOVES, CONDOMS, DIAPHRAGMS, BALLOONS, SOCKS, OR UNDERWEAR?YES SEE ALLERGY LIST - PLEASE INDICATE :OTHER (DOCUMENT IN NOTES) LATEX ALLERGY : HAVE YOU EVER DEVELOPED ANY TYPE OF REACTION DURING OR AFTER DENTAL APPOINTMENT, VAGINAL/RECTAL EXAMINATION, SURGICAL PROCEDURE, OR ANY OTHER EXPOSURE?YES - PLEASE INDICATE :DENTAL PROCEDURE, VAGINAL EXAM, RECTAL EXAM, SURGICAL PROCEDURE, OTHER (DOCUMENT IN NOTES) LATEX RISK : HAVE YOU EVER HAD ANY DIFFICULTY BREATHING OR HIVES AFTER EATING OR HANDLING ANY FRUITS, OR VEGETABLES; SUCH KIWI, BANANAS, STONE FRUITS, OR CHESTNUTSYES - PLEASE INDICATE : BANANAS, STONE FRUITS LATEX RISK : DO YOU HAVE A PREVIOUS PERSONAL HISTORY OF MORE THAN NINE SURGERIES, SPINA BIFIDA, OR REPEATED CATHERIZATIONS? YES - PLEASE INDICATE : > 9 SURGERIES LATEX RISK : ARE YOU FREQUENTLY EXPOSED TO LATEX PRODUCTS IN YOUR OCCUPATION?NO DATE ASKED : 07/28/2019 ALCOHOL SCREENING DID YOU HAVE A DRINK CONTAINING ALCOHOL IN THE PAST YEAR?NO POINTS0 INTERPRETATIONNEGATIVE RECREATIONAL DRUG USE DRUG USE?NO CAFFEINE CAFFEINE USE?NO SEXUAL HX HAD SEX IN THE LAST 12 MONTHS (VAGINAL, ORAL, OR ANAL)?NO HAVE YOU EVER HAD AN STD?NO HIV / HEP-C SCREENING HIV TEST OFFERED TO PATIENT:YES DATE OFFERED:07/18/2016 TEST ACCEPTED:NO HEP-C TEST OFFERED TO PATIENT:YES DATE OFFERED:07/18/2016 REASON:PATIENT DECLINED TEST ACCEPTED:NO REASON:PATIENT DECLINED YARSANI [id number] L[employer]UAGES SPOKEN:KOREAN EDUCATION LEVEL OF EDUCATION:[employer] 8TH GRADE LEARNING BARRIERS / SPECIAL NEEDS CHANGE FROM LAST VISIT?NO BARRIERS TO LEARNING?NO HEARING IMPAIRED?NO VISION IMPAIRED?YES :CORRECTIVE LENSES COGNITIVELY IMPAIRED?NO READINESS TO LEARN?YES LEARNING PREFERENCES?NO LEARNING CAPABILITIES PRESENT?YES EMOTIONAL BARRIERS?NO SPECIAL DEVICES?YES :CANE, WHEELCHAIR BOAT PILOT NEEDED?NO DOMESTIC VIOLENCE DO YOU FEEL SAFE IN YOUR ENVIRONMENT?YES OCCUPATION: DISABLED. DIET: NO CONCENTRATED SWEETS., CARBOHYDRATE CONTROLLED. EXERCISE: NO REGULAR EXERCISE. MARITAL STATUS: SINGLE. OTHERS AT HOME: NONE. NEW PATIENT PAIN DIARY TODAY'S VISIT 07/28/2019 PATIENT DESCRIBES PAIN :ACHING, BURNING, IT COMES AND GOES, SHARP, STABBING, TENDER, THROBBING, SORE, SHOOTING FROM 0-10, WHAT LEVEL IS YOUR PAIN TODAY?10 PRECIPITATING FACTORS NOTHING IN PARTICULAR ALLEVIATING FACTORS PAIN MEDICATION FOR APPROXIMATELY 3 HOURS, AND PAIN BLOCKS IMPACT ON FUNCTION LIMITS ON WHAT SHE CAN DO. WHEN SHE GETS IT SHE HAS TO LIE DOWN PAIN CLINIC PFS, CLERGY, PUBLIC HEALTH REFERRALS PFS REFERRAL NEEDED?NO CLERGY REFERRAL NEEDED?NO PUBLIC HEALTH REFERRAL NEEDED?NO HAS THE PATIENT BEEN EDUCATED REGARDING HIS/HER PLAN OF CARE?YES HAS THE PATIENT BEEN EDUCATED REGARDING PAIN, THE RISK FOR PAIN, THE IMPORTANCE OF EFFECTIVE PAIN MANAGEMENT, AND THE PAIN ASSESSMENT PROCESS?YES ADVANCE DIRECTIVE ADVANCE DIRECTIVE DISCUSSED WITH PATIENT:YES 07/28/19 STATES SHE HAS HCP - BROTHER (LUCAS); COPY PLACED IN RECORDS, HE IS ALSO POA. SHE ALSO HAS MOLST FORM THAT IS ON FILE HERE HOSPITALIZATION/MAJOR DIAGNOSTIC PROCEDURE [facility]- SMALL BOWEL OBSTRUCTION, WAS IN HOSPITAL 11 DAYS 09/2015 [facility]- SMALL BOWEL OBSTRUCTION, WAS IN HOSPITAL IN 5 DAYS 03/2016 [facility]- SMALL BOWEL OBSTRUCTION 04/12/16-04/17/16 [facility]- SMALL BOWEL OBSTRUCTION 06/2016 [facility]- SMALL BOWEL OBSTRUCTION 03/17/17-04/18/17 [facility] - SMALL BOWEL OBSTRUCTION, PNEUMONIA, PSEUDOGOUT 11/2018 [facility] - SMALL BOWEL OBSTRUCTION 02/2019 [facility]-SHORT GUT SYNDROME 06/29/19 REVIEW OF SYSTEMS REVIEWED BY: PROVIDER: ELLIS HECTOR MD . CONSTITUTIONAL: ANY CHANGE IN YOUR MEDICAL CONDITION? YES, ECZEMA, AND SINUS INFECTION . CHILLS NO . FEVER NO . INFECTION: DO YOU HAVE NEW INFECTIONS? NO . DO YOU HAVE HISTORY OF MRSA? NO . MUSCULOSKELETAL: ANY NEW PATTERNS OF PAIN OR NUMBNESS? NO . GASTROENTEROLOGY: ANY NEW CHANGE IN BOWEL CONTROL? NO, HAS ILEOSTOMY . GENITOURINARY: ANY NEW CHANGE IN BLADDER CONTROL? NO . IS THERE A CHANCE YOU COULD BE ? NO . HEMATOLOGY/LYMPH: DO YOU TAKE ANY BLOOD THINNERS? (FOR EXAMPLE- COUMADIN, PLAVIX, AGGRENOX, PLATEL, PRADAXA, OR XARELTO) NO . WHEN WAS YOUR LAST DOSE? DATE: TIME: . NEUROLOGY: HAVE YOU FALLEN IN THE PAST 12 MONTHS? NO . ANY NEW EXTREMITY NUMBNESS OR WEAKNESS? NO . CARDIOLOGY: DO YOU HAVE A PACEMAKER OR DEFIBRILLATOR? NO . RESPIRATORY: HAVE YOU BEEN SICK IN THE PAST WEEK? YES, SINUS INFECTION-BEING TREATED WITH ANTIBIOTIC . FEVER NO . FLU LIKE SYMPTOMS? NO . COUGH NO . INTEGUMENTARY: DO YOU HAVE ANY RASHES OR OPEN SORES? NO . ALLERGIC/IMMUNO: ARE YOU ALLERGIC TO IV DYE? YES . ANY NEW ALLERGIES? NO . PSYCHIATRIC: DO YOU HAVE THOUGHTS OF HURTING YOURSELF OR SOMEONE ELSE? NO . ARE YOU ABUSED, NEGLECTED, OR IN AN UNSAFE ENVIRONMENT? NO . ENDOCRINOLOGY: ARE YOU DIABETIC? YES, FSBS 179 THIS A.M. . OTHER: DO YOU NEED ANY PRESCRIPTIONS? NO . IF YES, PLEASE LIST: ____ . ANY NEW PROBLEMS WITH YOUR MEDICATIONS? NO . WHEN DID YOU LAST EAT? ____ . WHEN DID YOU LAST DRINK? ____ . WHAT DID YOU LAST DRINK? ____ . NAME OF PERSON DRIVING YOU HOME? ____ . DO YOU HAVE ANY OTHER QUESTIONS OR CONCERNS YES, WONDERING ABOUT A BLOCK FOR HER PAIN . EXAMINATION GENERAL EXAMINATION: TELEPHONE VISIT. PATIENT IS ALERT O X 3 AND COOPERATIVE. ASSESSMENTS CERVICALGIA - M54.2 (PRIMARY) MYALGIA, OTHER SITE - M79.18 TREATMENT CERVICALGIA CLINICAL NOTES: WE DISCUSSED SEVERAL ISSUES WITH MR. FELDER'S PAIN MANAGEMENT CASE. I AM STARTING THE PATIENT ON TIZANIDINE 2 MG UP TO 3 DAILY NEEDED TO HELP WITH SPASTICITY AND PAIN. THE PATIENT WAS ADVISED TO USING DURING THE DAY TO HELP WITH PAIN, BUT WILL CHANGE TO NIGHT IF IT MAKES HER TOO SLEEPY DURING THE DAY. THE PATIENT DOES NOT REMEMBER HOW THE ZANAFLEX HELPED HER IN THE PAST, SO SHE WILL TRY IT AND FOLLOW UP WITH [employer]CELAIN TECHNICIAN NAVNEET BRAY IN 2 WEEKS TO SEE HOW THE MEDICATION IS HELPING WITH HER PAIN. THE PATIENT WAS ADVISED TO STOP TAKING THE MEDICATION IF SHE EXPERIENCES ANY ADVERSE REACTIONS TO IT. I DISCUSSED WITH THE PATIENT ABOUT HER ABDOMINAL PAIN AND DCS IMPLANT ATTEMPTING TO COVER IT. THE PATIENT UNDERSTANDS SOON OUR CLINIC CAN PROCEED WITH INJECTIONS AGAIN, WE WILL DISCUSS OPTIONS TO PROCEED WITH. THE PATIENT MENTIONED CURRENTLY EXPERIENCING HEADACHES, THEREFORE WE MAY REFER HER TO A NEUROLOGICAL PRACTICE TO DISCUSS HER CASE AND ALSO CONSIDER PRESCRIBING AIMOVIG IN THE FUTURE. TOTAL TIME FOR TODAY'S TELEPHONE ENCOUNTER WAS 13 MINUTES. INSTRUCTIONS WERE GIVEN, QUESTIONS WERE ANSWERED, PATIENT REPORTS UNDERSTANDING AND AGREES WITH THE PLAN. I, SHERLYN GHOSH, DOCUMENTED THE ABOVE INFORMATION ACTING A SCRIBE FOR DR. HECTOR. I HAVE REVIEWED THE ABOVE DOCUMENT, WRITTEN BY SHERLYN APPIAH AND I VERIFY THAT IT IS ACCURATE. . OTHERS START TIZANIDINE HCL TABLET, 2 MG, 1 TABLET NEEDED, ORALLY FOR SPASMS AND PAIN, EVERY 6 HOURS NEEDED MDD 3, 30 DAYS, 75, REFILLS 0 NOTES: UNABLE TO DO V/S DUE TO TELEPHONE ENCOUNTER . PROCEDURE CODES 97207 TELEMEDICINE PHONE E/M BY COOKIE 11-20 MIN DISPOSITION & COMMUNICATION FOLLOW UP 2 WEEKS (REASON: F/UP WITH NAVNEET (SCHEDULED)) ELECTRONICALLY SIGNED BY ELLIS HECTOR MD, MD ON 08/02/2019 AT 05:18 PM EDT DISCLAIMER : THIS IS A VISIT SUMMARY EXTRACTED FROM THE [employer] CHART. IT IS NOT A COPY OF THE [employer] PROGRESS NOTE. MARLYN
== END ==
LOC: M PAIN 11:00
PROVIDERS: ATTEND Anesthesiology
DX: M54.2 Cervicalgia (principal); M79.18 Myalgia, other site; E11.40 Type 2 diabetes mellitus with diabetic neuropathy, unspecified; J45.909 Unspecified asthma, uncomplicated; E78.5 Hyperlipidemia, unspecified; Z88.0 Allergy status to penicillin; Z88.1 Allergy status to other antibiotic agents; Z88.2 Allergy status to sulfonamides; Z88.3 Allergy status to other anti-infective agents; Z88.4 Allergy status to anesthetic agent; Z88.5 Allergy status to narcotic agent; Z88.6 Allergy status to analgesic agent; Z88.8 Allergy status to other drugs, medicaments and biological substances; Z91.02 Food additives allergy status; Z91.040 Latex allergy status; Z79.899 Other long term (current) drug therapy

== ENCOUNTER → 2019-07-30 | Outpatient (REF) | payer OTHER ==
[2019-07-30 14:03] LABS: BASO % 0.4 % (0.0-1.0); EOS # 0.1 10^3/uL (0.0-0.5); EOS % 0.9 % (0.0-3.0); HEMATOCRIT 39.5 % (36.0-47.0); HEMOGLOBIN 12.5 g/dl (12.0-15.5); LYMPH # 1.5 10^3/uL (1.5-5.0); LYMPH % 26.4 % (24.0-44.0); MEAN CORPUSCULAR HGB CONC 31.6 g/dl (32.0-36.5); MONO # 0.4 10^3/uL (0.0-0.8); MONO % 7.2 % (0.0-5.0); NEUTROPHILS # 3.6 10^3/uL (1.5-8.5); NEUTROPHILS % 64.6 % (36.0-66.0); PLATELET COUNT, AUTOMATED 213 10^3/uL (150-450); RED BLOOD COUNT 4.16 10^6/uL (4.00-5.40); WHITE BLOOD COUNT 5.6 10^3/uL (4.0-10.0)
[2019-07-30 14:09] LABS: ALBUMIN 3.5 GM/DL (3.2-5.2); ALT/SGPT 51 U/L (12-78); BILIRUBIN,TOTAL 0.3 MG/DL (0.2-1.0); BLOOD UREA NITROGEN 11 MG/DL (7-18); CALCIUM LEVEL 10.5 MG/DL (8.5-10.1); CARBON DIOXIDE LEVEL 28 MEQ/L (21-32); CHLORIDE LEVEL 100 MEQ/L (98-107); CREATININE FOR GFR 0.64 MG/DL (0.55-1.30); GLOMERULAR FILTRATION RATE > 60.0 (>51); GLUCOSE, FASTING 272 MG/DL (70-100); POTASSIUM SERUM 4.4 MEQ/L (3.5-5.1); SODIUM LEVEL 134 MEQ/L (136-145); TOTAL PROTEIN 8.1 GM/DL (6.4-8.2)
== END ==
LOC: M SFHCPLAZ 11:16
PROVIDERS: ATTEND Family Medicine
DX: K92.2 Gastrointestinal hemorrhage, unspecified (principal)

== ENCOUNTER 2019-08-11 10:27 | Emergency (ER) | payer OTHER ==
[~2019-08-11] VITALS: Ht 170.2 cm; Wt 66.4 kg
[2019-08-11] MEDS ORDERED: PANTOPRAZOLE 40MG VIAL (C9113 PER 1) IV ONE (12:15)
[2019-08-11] MEDS ORDERED: ONDANSETRON 4MG/2ML VIAL IV ONE (12:15)
[2019-08-11] MEDS ORDERED: NS 1,000 ML IV ONE (12:15)
[2019-08-11] MEDS ORDERED: HYDROMORPHONE HCL 0.5 MG/ 0.5 ML SYRINGE (J1170 PER 1) IV ONE (12:15)
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
[2019-08-11 12:56] LABS: BASO % 0.5 % (0.0-1.0); EOS % 0.2 % (0.0-3.0); HEMATOCRIT 39.5 % (36.0-47.0); LYMPH # 1.1 10^3/uL (1.5-5.0); LYMPH % 19.5 % (24.0-44.0); MEAN CORPUSCULAR HEMOGLOBIN 31.4 pg (27.0-33.0); MEAN CORPUSCULAR HGB CONC 32.9 g/dl (32.0-36.5); MEAN CORPUSCULAR VOLUME 95.4 fl (80.0-96.0); MONO # 0.4 10^3/uL (0.0-0.8); NEUTROPHILS # 4.3 10^3/uL (1.5-8.5); NEUTROPHILS % 73.5 % (36.0-66.0); PLATELET COUNT, AUTOMATED 206 10^3/uL (150-450); RED BLOOD COUNT 4.14 10^6/uL (4.00-5.40); WHITE BLOOD COUNT 5.8 10^3/uL (4.0-10.0)
[2019-08-11 13:23] LABS: ALBUMIN 3.4 GM/DL (3.2-5.2); ALT/SGPT 49 U/L (12-78); BILIRUBIN,DIRECT 0.1 MG/DL (0.0-0.2); BILIRUBIN,TOTAL 0.3 MG/DL (0.2-1.0); BLOOD UREA NITROGEN 13 MG/DL (7-18); CALCIUM LEVEL 10.6 MG/DL (8.5-10.1); CARBON DIOXIDE LEVEL 26 MEQ/L (21-32); CHLORIDE LEVEL 102 MEQ/L (98-107); CK-MB VALUE MASS 1.2 NG/ML (<3.6); CPK CREATINE PHOSPHOKINASE 53 U/L (26-192); GLOMERULAR FILTRATION RATE > 60.0 (>51); GLUCOSE, FASTING 309 MG/DL (70-100); LIPASE 56 U/L (73-393); MB/CK RELATIVE INDEX 2.26 (< OR =4); POTASSIUM SERUM 4.1 MEQ/L (3.5-5.1); SODIUM LEVEL 137 MEQ/L (136-145); TOTAL PROTEIN 7.8 GM/DL (6.4-8.2); TROPONIN I < 0.02 NG/ML (< 0.10)
[2019-08-11] MEDS ORDERED: SODIUM CHLORIDE 0.9% INJ 10 ML SYR IV PRN (14:30)
[2019-08-11 14:33] VITALS: BP 148/72
--- NOTE | 2019-08-11 14:35 | REP ---
CHEST AND ABDOMEN: Three views. HISTORY: Abdomen pain. COMPARISON STUDY: June 29, 2019. FINDINGS: Upright chest radiograph demonstrates a right-sided Gwjiyp-L-[id number] catheter in place. A dorsal column stimulator catheter is noted in place as well. These are unchanged in position. Monitoring electrodes are seen. No infiltrate is seen in the lung garcía. There is minimal linear fibrosis in the left base. The heart is not enlarged. No free subdiaphragmatic air or infiltrate is seen. Supine erect views of the abdomen demonstrate multiple surgical clips in the abdomen and a left lower quadrant enterostomy. There is air and a small quantity of fluid in the stomach and in one or two loops of small bowel in the central abdomen. There is no evidence of obstruction or free air. IMPRESSION: Postoperative changes in the abdomen. Left lower quadrant enterostomy. No evidence of obstruction or free air. Electronically Signed by Skyler Godoy MD 08/11/2019 03:08 P
[2019-08-12] MEDS ORDERED: SODIUM CHLORIDE 0.9% INJ 10 ML SYR IV SCH (09:00)
== END 2019-08-11 14:51 | disposition home or self-care (01) ==
LOC: EDBD 10:27 → M ED 10:27
DX: R53.81 Other malaise (principal); R53.1 Weakness; R10.9 Unspecified abdominal pain; G89.29 Other chronic pain; R51 Headache; I10 Essential (primary) hypertension; Z91.041 Radiographic dye allergy status; Z88.0 Allergy status to penicillin; Z91.018 Allergy to other foods; Z88.2 Allergy status to sulfonamides; Z91.048 Other nonmedicinal substance allergy status; Z88.6 Allergy status to analgesic agent; Z88.8 Allergy status to other drugs, medicaments and biological substances; Z88.1 Allergy status to other antibiotic agents; Z88.5 Allergy status to narcotic agent; Z79.899 Other long term (current) drug therapy
CPT/HCPCS: 70450; 74021; 80048; 80076; 82550; 82553; 83690; 85025; 93041; 96361; 96374; 96375; 99285; C9113; J1170; J1642; J2405

== ENCOUNTER → 2019-08-13 | Outpatient (CLI) | payer OTHER ==
--- NOTE | 2019-08-17 04:24 | ECWPNPC ---
PATIENT NAME: GLENN FELDER : 1960 GENDER: FEMALE VISIT DATE: 08/13/2019 DISCHARGE DATE: 08/13/19739 VISIT LOCKED DATE TIME: PHYSICIAN: NAVNEET BRAY RESOURCE: NAVNEET BRAY REASON FOR APPOINTMENT 1. POST [phone] PAT COMPLETED HISTORY OF PRESENT ILLNESS HISTORY OF PRESENT ILLNESS: PATIENT IS AGREEABLE TO TELEPHONE VISIT TODAY. RATING PAIN VAS 10 OVER 10. WAS SCHEDULED FOR TRIGGER POINT INJECTIONS TO THE NECK, BUT THIS WAS CANCELED DUE TO COVID 19. REPORTING DAILY HEADACHES AND INABILITY TO TOLERATE ACTIVITIES DUE TO PAIN. WAS UNABLE TO TAKE TIZANIDINE BECAUSE IT CAUSED HIVES AFTER 2 OR 3 DOSES. HIVES RESOLVED AFTER STOPPING MEDICATION. DISCUSSED MEDICATION AND TREATMENT OPTIONS. PAIN THE PATIENT DESCRIBES THE PAIN... FALL RISK SCREENING: SCREENING :NO FALLS REPORTED IN THE LAST YEAR CURRENT MEDICATIONS TAKING IPRATROPIUM-ALBUTEROL 0.5-2.5 (3) MG/3ML SOLUTION 3 ML INHALATION EVERY 6 HRS PRN, NOTES: PRN TAKING SIMETHICONE 80 MG TABLET CHEWABLE 2 TABLETS AFTER MEALS AND AT BEDTIME NEEDED ORALLY THREE TIMES A DAY NEEDED FOR ABDOMINAL PAIN AND DISTENTION TAKING AMITRIPTYLINE HCL 50 MG TABLET DIRECTED ORALLY 1 TAB IN AM AND 3 TABS AT BEDTIME TAKING ALBUTEROL SULFATE HFA 108 (90 BASE) MCG/ACT AEROSOL SOLUTION 2 PUFFS NEEDED INHALATION EVERY 4 HRS PRN TAKING PEDIALYTE BOTTLE SOLUTION 330 ML ORALLY THREE TIMES DAILY TAKING METOCLOPRAMIDE HCL 10 MG TABLET 1 TABLET BEFORE MEALS AND BEDTIME ORALLY THREE TIMES DAILY BEFORE MEALS, NOTES: FREQUENCY CHANGE TAKING AMMONIUM LACTATE 12 % CREAM 1 APPLICATION EXTERNALLY TWICE A DAY TO FEET TAKING ALCOHOL PREP PAD 70 % PAD DIRECTED E11.9 TEST BLOOD SUGAR QID PRN TAKING MAY SAVAGE BAGS CLEAR VELCRO CLOSER ([id number]) ICD:V55.3 CHANGE NEEDED (EDUARD) TAKING MAY HAVE SAVAGE WAFERS NEW IMAGE SKIN BARRIERS FLATING FLANGES ICD: V55.3 ([id number] 2 1/2 CHANGE NEEDED (EDUARD) TAKING BABY WIPES 1 MISCELLANEOUS DIRECTED TOPICALLY PRN DX:569.62 TAKING SYRINGE 2-3 ML 3 ML MISCELLANEOUS DX: R11.0 INTRAMUSCULARLY TID PRN TAKING NYSTATIN [id number] UNIT/GM POWDER APPLY TO AFFECTED AREA(S) AROUND STOMA 2 TIMES A DAY DIRECTED UNTIL HEALED TAKING LACTULOSE 20 GM/30ML SOLUTION 15 ML ORALLY THREE TIMES DAILY TAKING SUCRALFATE 1 GM TABLET 1 TAB ORALLY TWICE A DAY TAKING ZOFRAN 4 MG/2ML SOLUTION 4 MG INJECTION BID AT LEAST 8H APART, NOTES: 7 9PM TAKING HOSPITAL BED USE DAILY DIRECTED DX: K91.2, G89.4, G90.522, N81.84 TAKING GLUCOMETER TESTING 4 TIMES A DAY AND NEEDED DX: , NOTES: MEDICAID #: [id number] TAKING TEST STRIPS - - DX: FOUR TIMES DAILY NEEDED, NOTES: MEDICAID #: [id number] TAKING LANCETS MISC. - MISCELLANEOUS - DX: FOUR TIMES DAILY NEEDED, NOTES: MEDICAID #: [id number] TAKING PEN NEEDLES 08/27" DIRECTED SUBCUTANEOUSLY DAILY DX: TAKING BENTYL 10 MG CAPSULE 1 CAPSULE ORALLY FOUR TIMES A DAY PRN ABDOMINAL CRAMPING TAKING ASTELIN 137 MCG/SPRAY SOLUTION 1 PUFF IN EACH NOSTRIL NASALLY TWICE A DAY TAKING TRIAMCINOLONE ACETONIDE 0.1 % CREAM APPLY A THIN LAYER TO RED AREAS ON FINGERS EXTERNALLY TWICE A DAY TAKING LEVEMIR FLEX TOUCH 100 UNIT/ML SOLUTION 15 UNITS SUBCUTANEOUS IN THE MORNING, NOTES: CHANGED DOSE TAKING HYDROMORPHONE HCL 4 MG TABLET 2 TABLETS ORALLY EVERY 3 HOURS NEEDED MDD: 16 TABS TAKING DICYCLOMINE HCL 10 MG CAPSULE 1 CAPSULE ORALLY FOUR TIMES DAILY MEDICATION LIST REVIEWED AND RECONCILED WITH THE PATIENT PAST MEDICAL HISTORY DM II WITH NEUROPATHY, HBA1C GOAL IS 8.0 FOR NOW B/C OF RISK OF HYPOGLYCEMIA, CONSIDER LOWER IF CONSISTENTLY ACHIEVED ASTHMA HYPERLIPIDEMIA GERD NEPHROLITHIASIS 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 ALLERGIC RHINITIS CHRONIC MAXILLARY SINUSITIS CHRONIC HEADACHES (PAIN MANAGEMENT) CHRONIC PAIN SYNDROME/RSD (PAIN MANAGEMENT) PERSONAL HISTORY OF VENOUS THROMBOSIS AND EMBOLISM (RESOLVED 12/19/2009) ABDOMINAL HERNIA FLEXURAL ECZEMA ALLERGIES IODINE: NERVES, TIGHT MUSCLES - SIDE EFFECTS GABAPENTIN: NERVOUS SYSTEM,SHAKEY - SIDE EFFECTS GABITRIL: NERVOUS - SIDE EFFECTS KETOROLAC TROMETHAMINE: VOMITING - SIDE EFFECTS MEPERIDINE HCL: OUT OF BODY EXPERIENCE - SIDE EFFECTS MORPHINE SULFATE: SEVERE H/A WITH BIG DOSE - SIDE EFFECTS PROMETHAZINE HCL: OUT OF BODY EXPERIENCE - SIDE EFFECTS TRAMADOL: SHAKES - SIDE EFFECTS OXYCODONE: VOMITING,HIVES - ALLERGY PENICILLIN (FOR ALLERGIES USE ONLY): HIVES - ALLERGY FENTANYL: NERVOUS - SIDE EFFECTS DROPERIDOL: OUT OF BODY - SIDE EFFECTS CODEINE SULFATE: OUT OF BODY EXPERIENCE - SIDE EFFECTS PHENOTHIAZINES: NERVOUS SYSTEM - SIDE EFFECTS QUINOLONES- CIPRO,TEQUIN: HIVES - ALLERGY RED FOOD DYE: RASH - ALLERGY LIDODERM (LICOCANINE): HEART RACES - SIDE EFFECTS SULFA: HIVES - ALLERGY ASPIRIN: HIVES - ALLERGY ATIVAN: HALLUCINATIONS - SIDE EFFECTS AZITHROMYCIN: HIVES - ALLERGY BACLOFEN: AFFECTED NERVOUS SYT - SIDE EFFECTS LYRICA: SHAKES, EVERYTHING IS BLACK - SIDE EFFECTS VICODIN: CONFUSION - SIDE EFFECTS MACROBID: HIVES, BLURRED VISION - ALLERGY READI-CAT: HIVES - ALLERGY ALBUTEROL SULFATE: COUGH - ALLERGY GASTROGRAFIN: ONLY 1 BOTTLE PER TEST DAY (CAN NOT TOLERATE ANY MORE THAN 1 BOTTLE) - CONTRAINDICATION LATEX (FOR ALLERGY USE ONLY): DIFFICULTY - ALLERGY TIZANIDINE HCL: HIVES - ALLERGY SURGICAL HISTORY NO PERSONAL HX OF SEVERE REACTION TO ANESTHESIA, HER BROTHER HAS "HAD HIS THROAT CLOSE OFF TWO DIFFERENT TIMES" WITH GENERAL ANESTHESIA SCALP TUMOR 1984 LUMPECTOMIES - REPORTED BENIGN BILATERAL 16 AND 21 YO TOTAL HYSTERECTOMY-DUE TO OVARIAN CYSTS/MASS 21 YO BILAT SYMPATHECTOMY 1987 AV FISTULA REPAIR L LEG 1989 CHOLECYSTECTOMY LATE SBO 2001 ABDOMINAL HERNIA REPAIR 2004 VENTRAL HERNIA REPAIR 2009 DORSAL COLUMN STIMULATOR TAKEN OUT AND NEW ONE IMPLANTED 02/21 SMALL PORTION OF SMALL BOWEL RESECTED AND VENTRAL HERNIA REPAIRS (CINTHIA) 06/2010 ILEOSTOMY-EDUARD 07/28/12 CYST REMOVED RIGHT NOSTRIL- DR RAJPUT. 09/17/12 REPAIR TWO HERNIAS AND REPAIR OF STOMA 03/26 HERNIA REPAIR X2 08/31/13 PARASTOMAL HERNIA REPAIR- EDUARD 06/26 HERNIA AND STOMA REPAIR-EDUARD 06/11 PERASTOMAL HERNIA REPAIR, WITH A SMALL BOWEL OBSTRUCTION 03/2017 INFUSAPORT PLACMENT ([facility]) 08/2017 HERNIA REPAIR X4 STOMA REVERSAL 10/2017 BATTERY REPLACEMENT FOR STIMULATOR 02/2018 FAMILY HISTORY FATHER: ALIVE, CANCER, DIAGNOSED WITH UNSPECIFIED CEREBRAL ARTERY OCCLUSION WITH CEREBRAL INFARCTION, OTHER MALIGNANT NEOPLASM OF UNSPECIFIED SITE MOTHER: , OF MYELODYSPLASTIC SYNDROME; WAS ALSO KNOWN TO HAVE CAD, OTHER MALIGNANT NEOPLASM OF UNSPECIFIED SITE SIBLINGS: ALIVE 1 BROTHER(S) - HEALTHY. 2 BROTHERS DM, KIDNEY FAILURE. SOCIAL HISTORY GENERAL: TOBACCO USE ARE YOU A:NONSMOKER NEVER SMOKER LATEX QUESTIONNAIRE LATEX ALLERGY : HAVE YOU EVER DEVELOPED ANY TYPE OF REACTION AFTER HANDLING LATEX PRODUCTS SUCH RUBBER GLOVES, CONDOMS, DIAPHRAGMS, BALLOONS, SOCKS, OR UNDERWEAR?YES SEE ALLERGY LIST - PLEASE INDICATE :OTHER (DOCUMENT IN NOTES) LATEX ALLERGY : HAVE YOU EVER DEVELOPED ANY TYPE OF REACTION DURING OR AFTER DENTAL APPOINTMENT, VAGINAL/RECTAL EXAMINATION, SURGICAL PROCEDURE, OR ANY OTHER EXPOSURE?YES - PLEASE INDICATE :DENTAL PROCEDURE, VAGINAL EXAM, RECTAL EXAM, SURGICAL PROCEDURE, OTHER (DOCUMENT IN NOTES) LATEX RISK : HAVE YOU EVER HAD ANY DIFFICULTY BREATHING OR HIVES AFTER EATING OR HANDLING ANY FRUITS, OR VEGETABLES; SUCH KIWI, BANANAS, STONE FRUITS, OR CHESTNUTSYES - PLEASE INDICATE : BANANAS, STONE FRUITS LATEX RISK : DO YOU HAVE A PREVIOUS PERSONAL HISTORY OF MORE THAN NINE SURGERIES, SPINA BIFIDA, OR REPEATED CATHERIZATIONS? YES - PLEASE INDICATE : > 9 SURGERIES LATEX RISK : ARE YOU FREQUENTLY EXPOSED TO LATEX PRODUCTS IN YOUR OCCUPATION?NO DATE ASKED : 07/28/2019 ALCOHOL SCREENING DID YOU HAVE A DRINK CONTAINING ALCOHOL IN THE PAST YEAR?NO POINTS0 INTERPRETATIONNEGATIVE RECREATIONAL DRUG USE DRUG USE?NO CAFFEINE CAFFEINE USE?NO SEXUAL HX HAD SEX IN THE LAST 12 MONTHS (VAGINAL, ORAL, OR ANAL)?NO HAVE YOU EVER HAD AN STD?NO HIV / HEP-C SCREENING HIV TEST OFFERED TO PATIENT:YES DATE OFFERED:07/18/2016 TEST ACCEPTED:NO HEP-C TEST OFFERED TO PATIENT:YES DATE OFFERED:07/18/2016 REASON:PATIENT DECLINED TEST ACCEPTED:NO REASON:PATIENT DECLINED NONDENOMINATIONAL [id number] [facility] L[facility] LANGUAGES SPOKEN:LAO EDUCATION LEVEL OF EDUCATION:[employer] 8TH GRADE LEARNING BARRIERS / SPECIAL NEEDS CHANGE FROM LAST VISIT?NO BARRIERS TO LEARNING?NO HEARING IMPAIRED?NO VISION IMPAIRED?YES COGNITIVELY IMPAIRED?NO :CORRECTIVE LENSES READINESS TO LEARN?YES LEARNING PREFERENCES?NO LEARNING CAPABILITIES PRESENT?YES EMOTIONAL BARRIERS?NO SPECIAL DEVICES?YES :CANE, WHEELCHAIR CHILD NUTRITION DIRECTOR NEEDED?NO DOMESTIC VIOLENCE DO YOU FEEL SAFE IN YOUR ENVIRONMENT?YES OCCUPATION: DISABLED. DIET: NO CONCENTRATED SWEETS., CARBOHYDRATE CONTROLLED. EXERCISE: NO REGULAR EXERCISE. MARITAL STATUS: SINGLE. OTHERS AT HOME: NONE. NEW PATIENT PAIN DIARY TODAY'S VISIT 08/12/2019 PATIENT DESCRIBES PAIN :ACHING, BURNING, IT COMES AND GOES, SHARP, STABBING, TENDER, THROBBING, SORE, SHOOTING FROM 0-10, WHAT LEVEL IS YOUR PAIN TODAY?10 PRECIPITATING FACTORS NOTHING IN PARTICULAR ALLEVIATING FACTORS PAIN MEDICATION FOR APPROXIMATELY 3 HOURS, AND PAIN BLOCKS IMPACT ON FUNCTION LIMITS ON WHAT SHE CAN DO. WHEN SHE GETS IT SHE HAS TO LIE DOWN PAIN CLINIC PFS, CLERGY, PUBLIC HEALTH REFERRALS PFS REFERRAL NEEDED?NO CLERGY REFERRAL NEEDED?NO PUBLIC HEALTH REFERRAL NEEDED?NO HAS THE PATIENT BEEN EDUCATED REGARDING HIS/HER PLAN OF CARE?YES HAS THE PATIENT BEEN EDUCATED REGARDING PAIN, THE RISK FOR PAIN, THE IMPORTANCE OF EFFECTIVE PAIN MANAGEMENT, AND THE PAIN ASSESSMENT PROCESS?YES ADVANCE DIRECTIVE ADVANCE DIRECTIVE DISCUSSED WITH PATIENT:YES 08/12/19 STATES SHE HAS HCP - BROTHER (LUCAS); COPY PLACED IN RECORDS, HE IS ALSO POA. SHE ALSO HAS MOLST FORM THAT IS ON FILE HERE HOSPITALIZATION/MAJOR DIAGNOSTIC PROCEDURE [facility]- SMALL BOWEL OBSTRUCTION, WAS IN HOSPITAL 11 DAYS 09/2015 [facility]- SMALL BOWEL OBSTRUCTION, WAS IN HOSPITAL IN 5 DAYS 03/2016 [facility]- SMALL BOWEL OBSTRUCTION 04/12/16-04/17/16 [facility]- SMALL BOWEL OBSTRUCTION 06/2016 [facility]- SMALL BOWEL OBSTRUCTION 03/17/17-04/18/17 [facility] - SMALL BOWEL OBSTRUCTION, PNEUMONIA, PSEUDOGOUT 11/2018 [facility] - SMALL BOWEL OBSTRUCTION 02/2019 [facility]-SHORT GUT SYNDROME 06/29/19 REVIEW OF SYSTEMS REVIEWED BY: PROVIDER: NAVNEET SANABRIA . CONSTITUTIONAL: ANY CHANGE IN YOUR MEDICAL CONDITION? NO . CHILLS NO . FEVER NO . INFECTION: DO YOU HAVE NEW INFECTIONS? NO . DO YOU HAVE HISTORY OF MRSA? NO . MUSCULOSKELETAL: ANY NEW PATTERNS OF PAIN OR NUMBNESS? YES, STATES INCREASED PAIN TO HEAD, NECK, AND SHOULDERS - WENT TO ED 08/11/2019 VIA AMBULANCE . GASTROENTEROLOGY: ANY NEW CHANGE IN BOWEL CONTROL? YES, STATES OSTOMY PRODUCING A LOT . GENITOURINARY: ANY NEW CHANGE IN BLADDER CONTROL? NO . IS THERE A CHANCE YOU COULD BE ? NO . HEMATOLOGY/LYMPH: DO YOU TAKE ANY BLOOD THINNERS? (FOR EXAMPLE- COUMADIN, PLAVIX, AGGRENOX, PLATEL, PRADAXA, OR XARELTO) NO . WHEN WAS YOUR LAST DOSE? DATE: TIME: . NEUROLOGY: HAVE YOU FALLEN IN THE PAST 12 MONTHS? YES, STATES FALL 5 TIMES ON 08/11/2019, STATES SHE HIT HER HEAD, WENT TO ED VIA AMBULANCE, HEAD CT PERFORMED . ANY NEW EXTREMITY NUMBNESS OR WEAKNESS? NO . CARDIOLOGY: DO YOU HAVE A PACEMAKER OR DEFIBRILLATOR? NO, [facility] . RESPIRATORY: HAVE YOU BEEN SICK IN THE PAST WEEK? NO . FEVER NO . FLU LIKE SYMPTOMS? NO . COUGH NO . INTEGUMENTARY: DO YOU HAVE ANY RASHES OR OPEN SORES? NO . ALLERGIC/IMMUNO: ARE YOU ALLERGIC TO IV DYE? YES . ANY NEW ALLERGIES? NO . PSYCHIATRIC: DO YOU HAVE THOUGHTS OF HURTING YOURSELF OR SOMEONE ELSE? NO . ARE YOU ABUSED, NEGLECTED, OR IN AN UNSAFE ENVIRONMENT? NO . ENDOCRINOLOGY: ARE YOU DIABETIC? YES . OTHER: DO YOU NEED ANY PRESCRIPTIONS? NO . IF YES, PLEASE LIST: ____ . ANY NEW PROBLEMS WITH YOUR MEDICATIONS? YES - TIZANIDINE THAT DR. HECTOR HAD PRESCRIBED GAVE HER HIVES SO SHE STOPPED TAKING IT . WHEN DID YOU LAST EAT? ____ . WHEN DID YOU LAST DRINK? ____ . WHAT DID YOU LAST DRINK? ____ . NAME OF PERSON DRIVING YOU HOME? ____ . DO YOU HAVE ANY OTHER QUESTIONS OR CONCERNS YES, WOULD LIKE TO BE SCHEDULED FOR AN INJECTION SOON ABLE TO . ASSESSMENTS MYALGIA OF MUSCLE OF NECK - M79.18 (PRIMARY) TREATMENT MYALGIA OF MUSCLE OF NECK NOTES: TRIGGER POINT INJECTION NECK. FOLLOW-UP WITH NURSE PRACTITIONER POST PROCEDURE. UNFORTUNATELY PATIENT IS ALLERGIC OR HAS ADVERSE REACTIONS TO MULTIPLE MEDICATIONS WE HAVE TRIED FOR PAIN MANAGEMENT IN THE PAST. CONTINUE CURRENT PAIN MEDICATION THROUGH PRIMARY CARE. TOTAL TIME SPENT DURING TELEPHONE VISIT WAS APPROXIMATELY 12 MINUTES. . OTHERS NOTES: NO VITALS OBTAINED DUE TO VIRTUAL VISIT. PRE-SCREENING COMPLETED 08/12/2019 1410. PREVENTIVE MEDICINE PAIN CLINIC TEACHING: PROCEDURE TEACHING PRE PROCEDURE INSTRUCTIONS REVIEWED WITH PATIENT OVER THE PHONE. PT VERBALIZES UNDERSTANDING. 08/13/2019 LAS. DISPOSITION & COMMUNICATION FOLLOW UP POST (REASON: TRIGGER POINT INJECTION NECK. ) ELECTRONICALLY SIGNED BY DANIELE MCKEON ON 08/16/2019 AT 12:39 PM EDT DISCLAIMER : THIS IS A VISIT SUMMARY EXTRACTED FROM THE [employer] CHART. IT IS NOT A COPY OF THE [employer] PROGRESS NOTE. MTDD
== END ==
LOC: M PAIN 10:00
PROVIDERS: ATTEND Nurse Practitioner Family
DX: M79.18 Myalgia, other site (principal); E11.9 Type 2 diabetes mellitus without complications; Z79.891 Long term (current) use of opiate analgesic; Z79.899 Other long term (current) drug therapy; Z88.0 Allergy status to penicillin; Z88.2 Allergy status to sulfonamides; Z88.4 Allergy status to anesthetic agent; Z88.5 Allergy status to narcotic agent; Z88.6 Allergy status to analgesic agent; Z88.8 Allergy status to other drugs, medicaments and biological substances; Z91.040 Latex allergy status

== ENCOUNTER → 2019-08-16 | Outpatient (REF) | payer OTHER ==
[2019-08-19 14:14] LABS: CODEINE, URINE Negative (Cutoff=100); CREATININE, URINE 52.7 mg/dL (20.0-300.0); HYDROCODONE, URINE Negative (Cutoff=100); HYDROMORPHONE CONFIRM, URINE 6611 ng/mL (Cutoff=100); HYDROMORPHONE, URINE Positive (.); MORPHINE, URINE Negative (Cutoff=100); OPIATES, URINE Positive ng/mL (Cutoff=300)
== END ==
LOC: M SFHCPLAZ 13:13
PROVIDERS: ATTEND Student in an Organized Health Care Education/Training Program
DX: G89.4 Chronic pain syndrome (principal)

== ENCOUNTER 2019-08-17 16:28 | Emergency (ER) | payer OTHER ==
[~2019-08-17] VITALS: Ht 170.2 cm; Wt 68.8 kg
[~2019-08-17 16:28] MED LIST changes: -GAS125CA15 PO; +SIME125C33 PO
[2019-08-17] MEDS ORDERED: HYDROmorphone 2 MG TAB PO ONE (17:00)
[2019-08-17 17:36] LABS: HEMATOCRIT 40.9 % (36.0-47.0); HEMOGLOBIN 13.4 g/dl (12.0-15.5); MEAN CORPUSCULAR HEMOGLOBIN 31.2 pg (27.0-33.0); MEAN CORPUSCULAR HGB CONC 32.8 g/dl (32.0-36.5); MEAN CORPUSCULAR VOLUME 95.3 fl (80.0-96.0); PLATELET COUNT, AUTOMATED 183 10^3/uL (150-450); RED BLOOD COUNT 4.29 10^6/uL (4.00-5.40); WHITE BLOOD COUNT 5.2 10^3/uL (4.0-10.0)
[2019-08-17 17:59] LABS: ALBUMIN 3.4 GM/DL (3.2-5.2); ALT/SGPT 44 U/L (12-78); BILIRUBIN,DIRECT 0.1 MG/DL (0.0-0.2); BILIRUBIN,TOTAL 0.4 MG/DL (0.2-1.0); BLOOD UREA NITROGEN 14 MG/DL (7-18); CALCIUM LEVEL 10.3 MG/DL (8.5-10.1); CARBON DIOXIDE LEVEL 25 MEQ/L (21-32); CHLORIDE LEVEL 97 MEQ/L (98-107); CREATININE FOR GFR 0.69 MG/DL (0.55-1.30); GLOMERULAR FILTRATION RATE > 60.0 (>51); GLUCOSE, FASTING 392 MG/DL (70-100); POTASSIUM SERUM 4.2 MEQ/L (3.5-5.1); SODIUM LEVEL 132 MEQ/L (136-145); TOTAL PROTEIN 7.6 GM/DL (6.4-8.2)
[2019-08-17] MEDS ORDERED: HumuLIN R (REGULAR) INSULIN (NovoLIN R) **100U/ML** PER UNIT SC STA (18:00)
--- NOTE | 2019-08-17 18:01 | REP ---
ABDOMINAL SERIES: Supine and erect views of the abdomen demonstrate no free air and no evidence for obstruction. Left-sided ostomy is again noted. No significantly dilated bowel loops are seen. Multiple metallic clips are seen throughout the abdominal and pelvis. There is a dorsal column stimulator again noted, unchanged in position. An accompanying view of the chest demonstrates no acute infiltrate. Heart and mediastinum are unchanged. Right central venous catheter is noted. IMPRESSION: No acute abnormalities. No change since prior study of 08/11/2019. Electronically Signed by Geovanni Camejo MD 08/17/2019 08:00 P
[2019-08-17 18:16] VITALS: BP 106/65
== END 2019-08-17 18:23 | disposition home or self-care (01) ==
LOC: M ED 16:28
DX: R10.9 Unspecified abdominal pain (principal); R11.0 Nausea; F11.10 Opioid abuse, uncomplicated; E11.9 Type 2 diabetes mellitus without complications; Z88.2 Allergy status to sulfonamides; Z88.0 Allergy status to penicillin; Z88.5 Allergy status to narcotic agent; Z88.8 Allergy status to other drugs, medicaments and biological substances; Z79.899 Other long term (current) drug therapy

== ENCOUNTER 2019-08-19 07:53 | Outpatient (CLI) | payer OTHER ==
[~2019-08-19] VITALS: Ht 165.1 cm; Wt 69.8 kg
[~2019-08-19 07:53] MED LIST changes: +GAS125CA15 PO; -SIME125C33 PO
[2019-08-19 08:16] VITALS: BP 128/68
[2019-08-19] MEDS ORDERED: SODIUM CHLORIDE 0.9% INJ 10 ML SYR IV SCH (09:00)
== END 2019-08-19 08:15 | disposition home or self-care (01) ==
LOC: M INFU 07:53
PROVIDERS: ATTEND Family Medicine
DX: E11.65 Type 2 diabetes mellitus with hyperglycemia (principal); E83.42 Hypomagnesemia; Z95.9 Presence of cardiac and vascular implant and graft, unspecified; Z88.0 Allergy status to penicillin; Z88.1 Allergy status to other antibiotic agents; Z88.2 Allergy status to sulfonamides; Z88.5 Allergy status to narcotic agent; Z88.8 Allergy status to other drugs, medicaments and biological substances; Z91.041 Radiographic dye allergy status; Z91.048 Other nonmedicinal substance allergy status
CPT/HCPCS: 96523; J1642

== ENCOUNTER → 2019-09-10 | Outpatient (REF) | payer OTHER ==
[~2019-09-10] MED LIST changes: -GAS125CA15 PO; +SIME125C33 PO
[2019-09-10 20:22] LABS: CHLAMYDIA DNA AMPLIFICATION NEGATIVE (NEGATIVE); GC DNA AMPLIFICATION NEGATIVE (NEGATIVE)
== END ==
LOC: M SFHCPLAZ 16:59
PROVIDERS: ATTEND Internal Medicine
DX: R30.0 Dysuria (principal)

== ENCOUNTER 2019-09-16 12:17 | Outpatient (CLI) | payer OTHER ==
[~2019-09-16] VITALS: Ht 165.1 cm; Wt 69.8 kg
[~2019-09-16 12:17] MED LIST changes: +SODIUM CHLORIDE 0.9% INJ 10 ML SYR IV SCH
[2019-09-16 12:40] VITALS: BP 92/57
== END 2019-09-16 12:45 | disposition home or self-care (01) ==
LOC: M INFU 12:17
PROVIDERS: ATTEND Family Medicine
DX: E11.65 Type 2 diabetes mellitus with hyperglycemia (principal); E83.42 Hypomagnesemia

== ENCOUNTER → 2019-09-24 | Outpatient (CLI) | payer OTHER ==
[~2019-09-24] MED LIST changes: -LACT10SO29 PO; +LACT20EL PO; +LEVE1INJ5 SQ; -SODIUM CHLORIDE 0.9% INJ 10 ML SYR IV SCH
== END ==
LOC: M LABSMTC 12:03
PROVIDERS: ATTEND Anesthesiology
DX: Z11.59 Encounter for screening for other viral diseases (principal)

== ENCOUNTER → 2019-09-27 | Outpatient (CLI) | payer OTHER ==
[~2019-09-27] MED LIST changes: +BUPIVACAINE HCL 0.25% 10ML VIAL As Ordered ONE; +BUPIVACAINE HCL 0.25% 30ML VIAL As Ordered ONE; +dexameTHASONE 10MG/1ML VIAL PRES.FREE (J1100 PER 1MG) As Ordered ONE
--- NOTE | 2019-09-29 03:40 | ECWPNPC ---
PATIENT NAME: GLENN FELDER : 1960 GENDER: FEMALE VISIT DATE: 09/27/2019 DISCHARGE DATE: 09/27/19 1425 VISIT LOCKED DATE TIME: PHYSICIAN: ELLIS HECTOR MD RESOURCE: ELLIS HECTOR MD REASON FOR APPOINTMENT 1. TRIGGER POINT INJECTION NECK PAT DONE HISTORY OF PRESENT ILLNESS GENERAL: 59-YEAR-OLD FEMALE PATIENT WITH A HISTORY OF CHRONIC NECK AND SHOULDER PAIN. THE PATIENT STATES THAT THE PAIN IS AFFECTING HER ACTIVITIES OF DAILY LIVING. THE PATIENT HAS RESTRICTION OVER THE AREA. THE PATIENT HAS HAD TRIGGER POINT INJECTIONS IN THE PAST THAT HAVE HELPED. PATIENT DENIES UNEXPLAINABLE WEIGHT LOSS, FEVER, CHILLS, NEW CHANGES ON HER URINARY OR BOWEL CONTROL. FALL RISK SCREENING: SCREENING :ONE FALL WITHOUT INJURY IN THE PAST YEAR PAIN SCREENING: PATIENT HAS A COMPLAINT OF ACUTE OR CHRONIC PAIN :YES LOCATION OF PAIN:HEAD, NECK, LEFT SHOULDER, RIGHT SHOULDER INTENSITY OF PAIN (SCALE OF 1 TO 10):10 WHAT DOES YOUR PAIN FEEL LIKE:ACHING, CONTINOUS, STABBING, TENDER, THROBBING, SHOOTING DURATION:CONTINOUS NURSING NOTE: -. PAIN CENTER INTAKE QUESTIONS: DO YOU HAVE A HISTORY OF MRSA? :NO DO YOU TAKE A BLOOD THINNERS? :NO DO YOU HAVE ANY BLEEDING DISORDERS? :NO ANY NEW NUMBNESS OR WEAKNESS IN YOUR LEGS OR ARMS? :YES RIGHT FOREARM, NUMBNESS ANY PACEMAKER,DEFIBRILLATOR, OR DORSAL COLUMN STIMULATOR? :NO DO YOU HAVE ANY RASHES OR OPEN SORES? :YES PT STATES THAT SHE HAD AN INFECTION IN HANDS, SCABBED AREA, YEAST INFECTION, NOT TAKING ANY ANTIBIOTICS. STOPPED TAKING ANTIBIOTICS ON INFECTION IS RESOLVED. NO LESIONS NOTED. DR. HECTOR NOTIFIED. ARE YOU ALLERGIC TO IV DYE? :YES ARE YOU DIABETIC? :YES CURRENTLY TAKING INSULIN STATES FSBS WAS 350 THIS AM AT 0430. STATES FS HAS BEEN IN THE 100S BUT HAD MULTIPLE PIECES OF CAKE OVER WEEKEND. DR. HECTOR NOTIFIED AND DISCUSSED NEED TO MONITOR FSBS WITH PT. ANY NEW PROBLEMS WITH YOUR MEDICATIONS? :NO HAVE YOU RECEIVED A VACCINE IN THE PAST 30 DAYS? :NO DO YOU PLAN TO RECEIVE A VACCINE IN THE NEXT 21 DAYS? :NO DO YOU TAKE ANY IMMUNOSUPPRESSIVE MEDICATIONS? :NO ANY HISTORY OF SEIZURES? :NO ANY HISTORY OF CARDIAC ISSUES OR EVENTS? :NO DO YOU HAVE SLEEP APNEA? : NO. ANY RECENT HEAD INJURY? :NO DO YOU HAVE ANY NEW INFECTIONS? :YES YES, PT STATES THAT SHE HAD A YEAST INFECTION IN HANDS, STOPPED TAKING ANTIBOITICS ON FRIDAY IS THERE A CHANCE YOU COULD BE ? :NO ARE YOU BREAST FEEDING? :NO WHEN DID YOU LAST EAT? : -09/26/191999 WHEN DID YOU LAST DRINK? : -09/26/191999 WHAT DID YOU LAST DRINK? : - NAME OF PERSON DRIVING YOU HOME? : -GUILFOYLE DO YOU HAVE ANY OTHER QUESTIONS OR CONCERNS? : - CURRENT MEDICATIONS TAKING IPRATROPIUM-ALBUTEROL 0.5-2.5 (3) MG/3ML SOLUTION 3 ML INHALATION EVERY 6 HRS PRN, NOTES: PRN NONE RECENTLY TAKING SIMETHICONE 80 MG TABLET CHEWABLE 2 TABLETS AFTER MEALS AND AT BEDTIME NEEDED ORALLY THREE TIMES A DAY NEEDED FOR ABDOMINAL PAIN AND DISTENTION, NOTES: 09/26/191999 TAKING AMITRIPTYLINE HCL 50 MG TABLET DIRECTED ORALLY 1 TAB IN AM AND 3 TABS AT BEDTIME, NOTES: 09/26/191999 TAKING PEDIALYTE BOTTLE SOLUTION 330 ML ORALLY THREE TIMES DAILY, NOTES: 09/27/19 0500 TAKING AMMONIUM LACTATE 12 % CREAM 1 APPLICATION EXTERNALLY TWICE A DAY TO FEET, NOTES: 09/26/191999 TAKING MAY SAVAGE BAGS CLEAR VELCRO CLOSER ([id number]) ICD:V55.3 CHANGE NEEDED (EDUARD) TAKING MAY HAVE SAVAGE WAFERS NEW IMAGE SKIN BARRIERS FLATING FLANGES ICD: V55.3 ([id number] 2 1/2 CHANGE NEEDED (EDUARD) TAKING BABY WIPES 1 MISCELLANEOUS DIRECTED TOPICALLY PRN DX:569.62 TAKING SYRINGE 2-3 ML 3 ML MISCELLANEOUS DX: R11.0 INTRAMUSCULARLY TID PRN TAKING NYSTATIN [id number] UNIT/GM POWDER APPLY TO AFFECTED AREA(S) AROUND STOMA 2 TIMES A DAY DIRECTED UNTIL HEALED , NOTES: NONE RECENTLY TAKING LACTULOSE 20 GM/30ML SOLUTION 15 ML ORALLY THREE TIMES DAILY, NOTES: 09/26/191999 TAKING ZOFRAN 4 MG/2ML SOLUTION 4 MG INJECTION BID AT LEAST 8H APART, NOTES: 09/26/191999 TAKING HOSPITAL BED USE DAILY DIRECTED DX: K91.2, G89.4, G90.522, N81.84 TAKING GLUCOMETER TESTING 4 TIMES A DAY AND NEEDED DX: E11, NOTES: MEDICAID #: [id number] TAKING TEST STRIPS - - DX: E11.65 FOUR TIMES DAILY NEEDED, NOTES: MEDICAID #: [id number] TAKING LANCETS MISC. - MISCELLANEOUS - DX: E11.65 FOUR TIMES DAILY NEEDED, NOTES: MEDICAID #: [id number] TAKING BENTYL 10 MG CAPSULE 1 CAPSULE ORALLY FOUR TIMES A DAY PRN ABDOMINAL CRAMPING, NOTES: 09/26/191999 TAKING TRIAMCINOLONE ACETONIDE 0.1 % CREAM APPLY A THIN LAYER TO RED AREAS ON FINGERS EXTERNALLY TWICE A DAY, NOTES: 2-3 DAYS TAKING METOCLOPRAMIDE HCL 10 MG TABLET 1 TABLET BEFORE MEALS AND BEDTIME ORALLY THREE TIMES DAILY BEFORE MEALS, NOTES: 09/26/191999 TAKING DICYCLOMINE HCL 10 MG CAPSULE 1 CAPSULE ORALLY FOUR TIMES DAILY, NOTES: 09/26/191999 TAKING NEBULIZER COMPRESSOR 1 INH DX: J45.909 EVERY 4 HOURS NEEDED TAKING NEBULIZER/TUBING/MOUTHPIECE - KIT DIRECTED DX: J45.909 EVERY 4 HOURS NEEDED TAKING ALBUTEROL SULFATE HFA 108 (90 BASE) MCG/ACT AEROSOL SOLUTION 2 PUFFS NEEDED INHALATION EVERY 4 HRS PRN, NOTES: NONE RECENTLY TAKING SUCRALFATE 1 GM TABLET 1 TAB ORALLY TWICE A DAY, NOTES: 09/26/191999 TAKING LEVEMIR FLEX TOUCH 100 UNIT/ML SOLUTION 35 UNITS SUBCUTANEOUS IN THE MORNING, NOTES: 09/26/19 0800 TAKING PEN NEEDLES 5/16" DIRECTED SUBCUTANEOUSLY DAILY DX: E11.65 TAKING ALCOHOL PREP PAD 70 % PAD DIRECTED E11.9 TEST BLOOD SUGAR QID PRN NOT-TAKING ASTELIN 137 MCG/SPRAY SOLUTION 1 PUFF IN EACH NOSTRIL NASALLY TWICE A DAY NOT-TAKING METRONIDAZOLE 500 MG TABLET 1 TABLET ORALLY TWICE A DAY NOT-TAKING HYDROMORPHONE HCL 4 MG TABLET 1 TABLETS ORALLY EVERY 3 HOURS NEEDED MDD: 8 TABS NOT-TAKING ONDANSETRON HCL 4 MG/2ML SOLUTION 1 VIAL TWO TIMES A DAY AT LEAST 8 HOURS APART DIRECTED INJECTION BID MEDICATION LIST REVIEWED AND RECONCILED WITH THE PATIENT PAST MEDICAL HISTORY DM II WITH NEUROPATHY, HBA1C GOAL IS 8.0 FOR NOW B/C OF RISK OF HYPOGLYCEMIA, CONSIDER LOWER IF CONSISTENTLY ACHIEVED ASTHMA HYPERLIPIDEMIA GERD NEPHROLITHIASIS 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 ALLERGIC RHINITIS CHRONIC MAXILLARY SINUSITIS CHRONIC HEADACHES (PAIN MANAGEMENT) CHRONIC PAIN SYNDROME/RSD (PAIN MANAGEMENT) PERSONAL HISTORY OF VENOUS THROMBOSIS AND EMBOLISM (RESOLVED 12/19/2009) ABDOMINAL HERNIA FLEXURAL ECZEMA ALLERGIES IODINE: NERVES, TIGHT MUSCLES - SIDE EFFECTS GABAPENTIN: NERVOUS SYSTEM,SHAKEY - SIDE EFFECTS GABITRIL: NERVOUS - SIDE EFFECTS KETOROLAC TROMETHAMINE: VOMITING - SIDE EFFECTS MEPERIDINE HCL: OUT OF BODY EXPERIENCE - SIDE EFFECTS MORPHINE SULFATE: SEVERE H/A WITH BIG DOSE - SIDE EFFECTS PROMETHAZINE HCL: OUT OF BODY EXPERIENCE - SIDE EFFECTS TRAMADOL: SHAKES - SIDE EFFECTS OXYCODONE: VOMITING,HIVES - ALLERGY PENICILLIN (FOR ALLERGIES USE ONLY): HIVES - ALLERGY FENTANYL: NERVOUS - SIDE EFFECTS DROPERIDOL: OUT OF BODY - SIDE EFFECTS CODEINE SULFATE: OUT OF BODY EXPERIENCE - SIDE EFFECTS PHENOTHIAZINES: NERVOUS SYSTEM - SIDE EFFECTS QUINOLONES- CIPRO,TEQUIN: HIVES - ALLERGY RED FOOD DYE: RASH - ALLERGY LIDODERM (LICOCANINE): HEART RACES - SIDE EFFECTS SULFA: HIVES - ALLERGY ASPIRIN: HIVES - ALLERGY ATIVAN: HALLUCINATIONS - SIDE EFFECTS AZITHROMYCIN: HIVES - ALLERGY BACLOFEN: AFFECTED NERVOUS SYT - SIDE EFFECTS LYRICA: SHAKES, EVERYTHING IS BLACK - SIDE EFFECTS VICODIN: CONFUSION - SIDE EFFECTS MACROBID: HIVES, BLURRED VISION - ALLERGY READI-CAT: HIVES - ALLERGY ALBUTEROL SULFATE: COUGH - ALLERGY GASTROGRAFIN: ONLY 1 BOTTLE PER TEST DAY (CAN NOT TOLERATE ANY MORE THAN 1 BOTTLE) - CONTRAINDICATION LATEX (FOR ALLERGY USE ONLY): DIFFICULTY - ALLERGY TIZANIDINE HCL: HIVES - ALLERGY SURGICAL HISTORY NO PERSONAL HX OF SEVERE REACTION TO ANESTHESIA, HER BROTHER HAS "HAD HIS THROAT CLOSE OFF TWO DIFFERENT TIMES" WITH GENERAL ANESTHESIA SCALP TUMOR 1984 LUMPECTOMIES - REPORTED BENIGN BILATERAL 16 AND 21 YO TOTAL HYSTERECTOMY-DUE TO OVARIAN CYSTS/MASS 21 YO BILAT SYMPATHECTOMY 1987 AV FISTULA REPAIR L LEG 1988 CHOLECYSTECTOMY LATE SBO 2001 ABDOMINAL HERNIA REPAIR 2004 VENTRAL HERNIA REPAIR 2009 DORSAL COLUMN STIMULATOR TAKEN OUT AND NEW ONE IMPLANTED 02/21 SMALL PORTION OF SMALL BOWEL RESECTED AND VENTRAL HERNIA REPAIRS (CINTHIA) 06/2010 ILEOSTOMY-EDUARD 07/28/12 CYST REMOVED RIGHT NOSTRIL- DR RAJPUT. 09/17/12 REPAIR TWO HERNIAS AND REPAIR OF STOMA 03/26 HERNIA REPAIR X2 08/31/13 PARASTOMAL HERNIA REPAIR- EDUARD 06/26 HERNIA AND STOMA REPAIR-EDUARD 06/11 PERASTOMAL HERNIA REPAIR, WITH A SMALL BOWEL OBSTRUCTION 03/2017 INFUSAPORT PLACMENT ([facility]) 08/2017 HERNIA REPAIR X4 STOMA REVERSAL 10/2017 BATTERY REPLACEMENT FOR STIMULATOR 02/2018 FAMILY HISTORY FATHER: ALIVE, CANCER, DIAGNOSED WITH UNSPECIFIED CEREBRAL ARTERY OCCLUSION WITH CEREBRAL INFARCTION, OTHER MALIGNANT NEOPLASM OF UNSPECIFIED SITE MOTHER: , OF MYELODYSPLASTIC SYNDROME; WAS ALSO KNOWN TO HAVE CAD, OTHER MALIGNANT NEOPLASM OF UNSPECIFIED SITE SIBLINGS: ALIVE 1 BROTHER(S) - HEALTHY. 2 BROTHERS DM, KIDNEY FAILURE. SOCIAL HISTORY GENERAL: TOBACCO USE ARE YOU A:NONSMOKER NEVER SMOKER LATEX QUESTIONNAIRE LATEX ALLERGY : HAVE YOU EVER DEVELOPED ANY TYPE OF REACTION AFTER HANDLING LATEX PRODUCTS SUCH RUBBER GLOVES, CONDOMS, DIAPHRAGMS, BALLOONS, SOCKS, OR UNDERWEAR?YES SEE ALLERGY LIST - PLEASE INDICATE :OTHER (DOCUMENT IN NOTES) LATEX ALLERGY : HAVE YOU EVER DEVELOPED ANY TYPE OF REACTION DURING OR AFTER DENTAL APPOINTMENT, VAGINAL/RECTAL EXAMINATION, SURGICAL PROCEDURE, OR ANY OTHER EXPOSURE?YES - PLEASE INDICATE :DENTAL PROCEDURE, VAGINAL EXAM, RECTAL EXAM, SURGICAL PROCEDURE, OTHER (DOCUMENT IN NOTES) LATEX RISK : HAVE YOU EVER HAD ANY DIFFICULTY BREATHING OR HIVES AFTER EATING OR HANDLING ANY FRUITS, OR VEGETABLES; SUCH KIWI, BANANAS, STONE FRUITS, OR CHESTNUTSYES - PLEASE INDICATE : BANANAS, STONE FRUITS LATEX RISK : DO YOU HAVE A PREVIOUS PERSONAL HISTORY OF MORE THAN NINE SURGERIES, SPINA BIFIDA, OR REPEATED CATHERIZATIONS? YES - PLEASE INDICATE : > 9 SURGERIES LATEX RISK : ARE YOU FREQUENTLY EXPOSED TO LATEX PRODUCTS IN YOUR OCCUPATION?NO DATE ASKED : 09/24/2019 ALCOHOL SCREENING DID YOU HAVE A DRINK CONTAINING ALCOHOL IN THE PAST YEAR?NO POINTS0 INTERPRETATIONNEGATIVE RECREATIONAL DRUG USE DRUG USE?NO CAFFEINE CAFFEINE USE?NO SEXUAL HX HAD SEX IN THE LAST 12 MONTHS (VAGINAL, ORAL, OR ANAL)?NO HAVE YOU EVER HAD AN STD?NO HIV / HEP-C SCREENING HIV TEST OFFERED TO PATIENT:YES DATE OFFERED:07/18/2016 TEST ACCEPTED:NO HEP-C TEST OFFERED TO PATIENT:YES DATE OFFERED:07/18/2016 REASON:PATIENT DECLINED TEST ACCEPTED:NO REASON:PATIENT DECLINED [facility]IAN[id number] [facility] L[facility] LANGUAGES SPOKEN:HEBREW EDUCATION LEVEL OF EDUCATION:[employer] 8TH GRADE LEARNING BARRIERS / SPECIAL NEEDS CHANGE FROM LAST VISIT?NO BARRIERS TO LEARNING?NO HEARING IMPAIRED?NO VISION IMPAIRED?YES COGNITIVELY IMPAIRED?NO :CORRECTIVE LENSES READINESS TO LEARN?YES LEARNING PREFERENCES?NO LEARNING CAPABILITIES PRESENT?YES EMOTIONAL BARRIERS?NO SPECIAL DEVICES?YES :CANE, WHEELCHAIR DELIVERY DRIVER NEEDED?NO DOMESTIC VIOLENCE DO YOU FEEL SAFE IN YOUR ENVIRONMENT?YES OCCUPATION: DISABLED. DIET: NO CONCENTRATED SWEETS., CARBOHYDRATE CONTROLLED. EXERCISE: NO REGULAR EXERCISE. MARITAL STATUS: SINGLE. OTHERS AT HOME: NONE. PAIN CLINIC PFS, CLERGY, PUBLIC HEALTH REFERRALS PFS REFERRAL NEEDED?NO CLERGY REFERRAL NEEDED?NO PUBLIC HEALTH REFERRAL NEEDED?NO HAS THE PATIENT BEEN EDUCATED REGARDING HIS/HER PLAN OF CARE?YES HAS THE PATIENT BEEN EDUCATED REGARDING PAIN, THE RISK FOR PAIN, THE IMPORTANCE OF EFFECTIVE PAIN MANAGEMENT, AND THE PAIN ASSESSMENT PROCESS?YES ADVANCE DIRECTIVE ADVANCE DIRECTIVE DISCUSSED WITH PATIENT:YES STATES SHE HAS HCP - BROTHER (LUCAS); COPY PLACED IN RECORDS, HE IS ALSO POA. SHE ALSO HAS MOLST FORM THAT IS ON FILE HERE HOSPITALIZATION/MAJOR DIAGNOSTIC PROCEDURE [facility]- SMALL BOWEL OBSTRUCTION, WAS IN HOSPITAL 11 DAYS 09/2015 [facility]- SMALL BOWEL OBSTRUCTION, WAS IN HOSPITAL IN 5 DAYS 03/2016 [facility]- SMALL BOWEL OBSTRUCTION 04/12/16-04/17/16 [facility]- SMALL BOWEL OBSTRUCTION 06/2016 [facility]- SMALL BOWEL OBSTRUCTION 03/17/17-04/18/17 [facility] - SMALL BOWEL OBSTRUCTION, PNEUMONIA, PSEUDOGOUT 11/2018 [facility] - SMALL BOWEL OBSTRUCTION 02/2019 [facility]-SHORT GUT SYNDROME 06/29/19 VITAL SIGNS WT 158.4 LBS, HT 67 IN, BMI 24.81 INDEX, BP 122/56 MM HG, HR 88 /MIN, RR 18 /MIN, TEMP 98.0 F, OXYGEN SAT % 99%, NA INITIALS AW 1318, REVIEWED BY: LS. EXAMINATION GENERAL EXAMINATION: THE PATIENT IS ALERT, ORIENTED TIMES THREE AND COOPERATIVE. HEART SHOWS REGULAR RHYTHM, NO MURMURS AND NO GALLOPS. LUNGS ARE CLEAR TO AUSCULTATION. THERE ARE PRESENCE OF TRIGGER POINTS IN THE BILATERAL NECK AND BILATERAL SHOULDERS WITH RESTRICTION OF MOVEMENT PRESENT IN THE BANDS OF TISSUE. ASSESSMENTS MYALGIA, OTHER SITE - M79.18 (PRIMARY) TREATMENT MYALGIA, OTHER SITE CLINICAL NOTES: WE DISCUSSED SEVERAL ALTERNATIVES WITH MS. FELDER REGARDING HER TREATMENT OPTIONS AND CARE. WE HAVE AGREED TO MOVE FORWARD WITH TRIGGER POINT INJECTIONS IN THE BILATERAL NECK AND BILATERAL SHOULDER AREA. THE PATIENT UNDERSTANDS AND IS IN AGREEMENT WITH THE TREATMENT. PROCEDURES PAIN NURSING RECORD PRE-PROCEDURE IV SITE N/A PROCEDURE IN ROOM 1320, PHYSICIAN IN ROOM 1357, START 1403, FINISH 1407, PHYSICIAN OUT OF ROOM 1409, OUT OF ROOM 1425, STEROID DEXAMETHASONE, O2 RA, ECG N/A, PATIENT SHIELDED NO, SAFETY STRAP NO, PREP ALCOHOL DR. HECTOR, IV INFUSED N/A, DRESSING ASAD REYES RN LOC: 1. ALERT, ORIENTED RESP: 1. REGULAR, NO DYSPNEA COLOR: 1. PINK SKIN: 1. WARM, DRY POSITION: 4. OTHER - SEATED VITALS: 1415 132/62 90-160 99% DISCHARGE: POST PAIN 0/10, DRESSING SITE DRY AND INTACT, IV N/A, GAIT STEADY WITH WALKER, TEACHING COMPLETED, PATIENT ACKNOWLEDGES UNDERSTANDING YES, PATIENT DISCHARGED AT 1425 PN TRIGGER POINT INJECTION WITH STEROIDS PRE PROCEDURE DIAGNOSIS 1. MYALGIA 2. PAIN AT BILATERAL NECK AREA AND BILATERAL SHOULDER AREA POST PROCEDURE DIAGNOSIS 1. MYALGIA 2. PAIN AT BILATERAL NECK AREA AND BILATERAL SHOULDER AREA PROCEDURE TRIGGER POINT INJECTION AT BILATERAL NECK AREA AND BILATERAL SHOULDER AREA SURGEON DR. ELLIS HECTOR MARRIAGE PERFORMER NONE ANESTHESIA LOCAL PRE PROCEDURE NOTE THE PATIENT HAS A HISTORY OF CHRONIC PAIN AT THE RIGHT AND LEFT NECK AREA AND RIGHT AND LEFT SHOULDER AREA. I EVALUATED THE PATIENT AND REVIEWED THE CHART. THERE IS EVIDENCE OF BANDS OF TISSUE WITH RESTRICTION OF MOVEMENT AND PRESENCE OF TRIGGER POINT AT THE RIGHT AND LEFT NECK AREA AND RIGHT AND LEFT SHOULDER AREA. I WENT OVER THE RISKS, ALTERNATIVES, AND BENEFITS ASSOCIATED WITH THIS PROCEDURE. I DISCUSSED THAT THE USE OF STEROIDS MAY CONTRIBUTE TO IMMUNOSUPPRESSION OF THE PATIENT'S BODY AGAINST INFECTIONS SUCH COVID-19. THE PATIENT IS AWARE OF THE POTENTIAL COMPLICATIONS ASSOCIATED WITH THIS VIRUS, INCLUDING, BUT NOT LIMITED TO, . THE PATIENT WOULD LIKE TO PROCEED AND GIVE CONSENT TO PERFORMED THE PROCEDURE. THE PATIENT DENIES UNEXPLAINABLE WEIGHT LOSS, FEVER, CHILLS, OR NEW CHANGES IN URINARY OR BOWEL CONTROL. THE PATIENT IS COVID-19 NEGATIVE DESCRIPTION OF PROCEDURE THE PATIENT WAS BROUGHT TO THE PROCEDURE ROOM AND PLACED IN THE SITTING POSITION. THE AREA WAS CLEANED WITH ALCOHOL. THE PROCEDURE WAS DONE USING ASEPTIC STERILE TECHNIQUE. I CHECKED LATERALITY AND THE LEVEL WHERE THE PROCEDURE WAS GOING TO BE PERFORMED WITH THE PATIENT AND THE SUPPORTING STAFF AT THE MOMENT OF THE TIME OUT IN THE PROCEDURE ROOM. USING A 25-GAUGE NEEDLE, TRIGGER POINTS WERE INJECTED AT THE RIGHT AND LEFT NECK AREA AND RIGHT AND LEFT SHOULDER AREA WITH A TOTAL OF 40 ML OF BUPIVACAINE 0.25% AND DEXAMETHASONE 10 MG. THERE WAS NO EVIDENCE OF BLOOD, PARESTHESIA OR CEREBROSPINAL FLUID DURING THE PROCEDURE. THE PATIENT WAS SENT TO THE RECOVERY ROOM. THE PATIENT WAS MOVING THE EXTREMITIES AND DOING WELL. THERE WERE NO COMPLICATIONS DURING THE PROCEDURE. EBL LESS THAN 5 ML POST PROCEDURE NOTE THE PROCEDURE DONE WAS DISCUSSED WITH THE PATIENT. THE PATIENT WILL BE SEEN IN A FOLLOW UP IN THE NEXT FEW WEEKS. I AM LOOKING FOR LONG LASTING PAIN RELIEF FOR THE PATIENT WITH THIS INTERVENTION. INSTRUCTIONS WERE GIVEN, QUESTIONS WERE ANSWERED, AND THE PATIENT EXPRESSED UNDERSTANDING AND AGREES WITH THE PLAN. THE PATIENT IS AWARE TO STAY HOME FOR THE NEXT WEEK, IF POSSIBLE, DUE TO COVID-19. I, MARIO HARRIS, DOCUMENTED THE ABOVE INFORMATION ACTING A SCRIBE FOR DR. HECTOR. I HAVE REVIEWED THE ABOVE DOCUMENT, WRITTEN BY MARIO HARRIS, PORTFOLIO LEAD, AND I VERIFY THAT IT IS ACCURATE PROCEDURE CODES 97725 INJECT TRIGGER POINTS 3/> DISPOSITION & COMMUNICATION FOLLOW UP F/UP WITH VOCATIONAL REHABILITATION COUNSELOR (REASON: POST TPI DILCIA NECK AND DILCIA SHOULDER) ELECTRONICALLY SIGNED BY ELLIS HECTOR MD, MD ON 09/28/2019 AT 01:05 PM EDT DISCLAIMER : THIS IS A VISIT SUMMARY EXTRACTED FROM THE [facility] CHART. IT IS NOT A COPY OF THE [facility] PROGRESS NOTE. MARLYN
== END ==
LOC: M PAIN 13:15
PROVIDERS: ATTEND Anesthesiology
DX: M79.18 Myalgia, other site (principal)
CPT/HCPCS: 20553; J1100

== ENCOUNTER 2019-09-28 14:55 | Emergency (ER) | payer OTHER ==
[~2019-09-28] VITALS: Ht 170.2 cm; Wt 68.6 kg
[~2019-09-28 14:55] MED LIST changes: -BUPIVACAINE HCL 0.25% 10ML VIAL As Ordered ONE; -BUPIVACAINE HCL 0.25% 30ML VIAL As Ordered ONE; -LEVE1INJ5 SQ; -dexameTHASONE 10MG/1ML VIAL PRES.FREE (J1100 PER 1MG) As Ordered ONE
[2019-09-28] MEDS ORDERED: NS 1,000 ML IV ONE ×2 (15:30)
[2019-09-28] MEDS ORDERED: HYDROMORPHONE HCL 0.5 MG/ 0.5 ML SYRINGE (J1170 PER 1) IV ONE ×2 (15:45→18:30)
[2019-09-28 15:57] LABS: VENOUS BASE EXCESS -1.4 (-2.0-2.0); VENOUS O2 SATURATION 93.7 % (60.0-80.0); VENOUS PARTIAL PRESSURE CO2 43.3 mmHg (38.0-50.0); VENOUS PARTIAL PRESSURE O2 71.1 mmHg (30.0-50.0); VENOUS PH 7.362 UNITS (7.330-7.430); VENOUS STANDARD HCO3 23.2 MEQ/L; VENOUS TOTAL CO2 25.4 MEQ/L (24.0-28.0)
[2019-09-28 16:01] LABS: BASO % 0.2 % (0.0-1.0); EOS % 0.1 % (0.0-3.0); HEMATOCRIT 30.3 % (36.0-47.0); HEMOGLOBIN 9.6 g/dl (12.0-15.5); LYMPH # 2.1 10^3/uL (1.5-5.0); LYMPH % 24.4 % (24.0-44.0); MEAN CORPUSCULAR HEMOGLOBIN 30.5 pg (27.0-33.0); MEAN CORPUSCULAR HGB CONC 31.7 g/dl (32.0-36.5); MEAN CORPUSCULAR VOLUME 96.2 fl (80.0-96.0); MONO # 0.8 10^3/uL (0.0-0.8); MONO % 9.7 % (0.0-5.0); NEUTROPHILS # 5.5 10^3/uL (1.5-8.5); NEUTROPHILS % 65.2 % (36.0-66.0); PLATELET COUNT, AUTOMATED 242 10^3/uL (150-450); RED BLOOD COUNT 3.15 10^6/uL (4.00-5.40); WHITE BLOOD COUNT 8.4 10^3/uL (4.0-10.0)
[2019-09-28 16:12] LABS: INR 0.99; PARTIAL THROMBOPLASTIN TIME 26.2 SECONDS (25.0-38.4); PROTHROMBIN TIME 12.8 SECONDS (11.8-14.0)
[2019-09-28] MEDS ORDERED: LEVE1INJ5 SQ (16:24)
[2019-09-28 16:35] LABS: ACETONE/KETONE 1.38 MG/DL (<2.81); ALBUMIN 3.5 GM/DL (3.2-5.2); BILIRUBIN,DIRECT 0.1 MG/DL (0.0-0.2); BILIRUBIN,TOTAL 0.2 MG/DL (0.2-1.0); TOTAL PROTEIN 7.9 GM/DL (6.4-8.2)
--- NOTE | 2019-09-28 18:11 | REPVR ---
PROCEDURE INFORMATION: Exam: CT Abdomen And Pelvis Without Contrast Exam date and time: 09/28/2019 5:12 PM Age: 59 years old Clinical indication: Abdominal pain; Generalized; Additional info: Diffuse abd pain, elevated lactate TECHNIQUE: Imaging protocol: Computed tomography of the abdomen and pelvis without contrast. Radiation optimization: All CT scans at this facility use at least one of these dose optimization techniques: automated exposure control; mA and/or kV adjustment per patient size (includes targeted exams where dose is matched to clinical indication); or iterative reconstruction. COMPARISON: CT ABD PELVIS W/O CONTRAST 06/29/2019 11:52 PM FINDINGS: Tubes, catheters and devices: An intraspinal implant stimulator device is seen in the lower thoracic epidural space. A stimulator device is seen in the lateral right flank subcutaneous tissues. Lungs: Small areas of subsegmental atelectasis are present in both lung bases. Heart: Borderline cardiomegaly is present. Liver: No mass. The right lobe of the liver is enlarged, likely representing a normal variant Samreen's lobe. Gallbladder and bile ducts: Prior cholecystectomy. The biliary ducts appear normal. Pancreas: Normal. No ductal dilation. Spleen: Normal. No splenomegaly. Adrenals: Normal. No mass. Kidneys and ureters: Normal. No hydronephrosis. Stomach and bowel: Prior distal colectomy with a small bowel ostomy in the left lower flank area on images 54 through 65 of series 201, with a parastomal lateral abdominal wall Spigelian-type hernia present containing a short loop of small bowel inferior to the ostomy site. No evidence of incarceration or obstruction in the hernia. No evidence of ileus. The distal rectal stump appears normal with an intact proximal surgical suture line. Appendix: No evidence of appendicitis. Intraperitoneal space: No evidence of an abscess or inflammatory disease evident in the peritoneal cavity. Vasculature: Unremarkable. No abdominal aortic aneurysm. Lymph nodes: Unremarkable. No enlarged lymph nodes. Bladder: Unremarkable as visualized. Reproductive: Unremarkable as visualized. Bones/joints: Unremarkable. No acute fracture. IMPRESSION: 1. Prior distal colectomy with a small bowel ostomy in the left lower flank area on images 54 through 65 of series 201, with a parastomal lateral abdominal wall Spigelian-type hernia present containing a short loop of small bowel inferior to the ostomy site. No evidence of incarceration or obstruction in the hernia. No evidence of ileus. The distal rectal stump appears normal with an intact proximal surgical suture line. 2. No evidence of an abscess or inflammatory disease evident in the peritoneal cavity. 3. Borderline cardiomegaly is present. 4. Small areas of subsegmental atelectasis are present in both lung bases. 5. Prior cholecystectomy. The biliary ducts appear normal. 6. The right lobe of the liver is enlarged, likely representing a normal variant Samreen's lobe. 7. An intraspinal implant stimulator device is seen in the lower thoracic epidural space. A stimulator device is seen in the lateral right flank subcutaneous tissues. Electronically signed by: Hima Ziegler On 09/28/2019 18:11:20 PM
[2019-09-28 18:41] VITALS: BP 149/73
[2019-10-10] MEDS ORDERED: HYDR4TAB (14:25)
== END 2019-09-28 20:15 | disposition home or self-care (01) ==
LOC: M ED 14:55
DX: K46.9 Unspecified abdominal hernia without obstruction or gangrene (principal); R73.09 Other abnormal glucose; R10.84 Generalized abdominal pain; R16.0 Hepatomegaly, not elsewhere classified; E11.9 Type 2 diabetes mellitus without complications; Z93.3 Colostomy status; Z96.9 Presence of functional implant, unspecified; Z79.4 Long term (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; Z79.899 Other long term (current) drug therapy; Z91.040 Latex allergy status; Z91.018 Allergy to other foods; Z91.89 Other specified personal risk factors, not elsewhere classified; Z88.0 Allergy status to penicillin; Z88.2 Allergy status to sulfonamides; Z88.8 Allergy status to other drugs, medicaments and biological substances; Z88.1 Allergy status to other antibiotic agents; Z88.5 Allergy status to narcotic agent
CPT/HCPCS: 74176; 80047; 80076; 81001; 82010; 82803; 83605; 83690; 85025; 85610; 85730; 87086; 87507; 96361; 96374; 96376; 99284; J1170

== ENCOUNTER 2019-10-10 13:39 | Emergency (ER) | payer OTHER ==
[~2019-10-10] VITALS: Ht 170.2 cm; Wt 68.6 kg
[~2019-10-10 13:39] MED LIST changes: +D31000TA2 PO; +LEVE1INJ5 SQ; -MOVA1TAB PO; +NALO12.5 PO; -VITAD1000T PO
--- NOTE | 2019-10-10 14:23 | REP ---
Clinical: Abdominal pain and pressure. Technique: Upright view of the chest with supine and upright views of the abdomen and pelvis. Findings: Frontal upright view of the chest demonstrates [id number] with tip in the SVC and epidural stimulator at the lower thoracic level. No focal consolidation or definite effusion. No pneumothorax. No free air below diaphragm to suspect pneumoperitoneum. Supine and upright views of the abdomen and pelvis demonstrate multiple prior abdominal surgeries including ostomy overlying the left mid abdomen. The bowel gas pattern is nonspecific. Skeletal structures are intact. Impression: 1. Nonspecific bowel gas pattern. 2. Chronic and postsurgical changes including ostomy. Electronically Signed by Darius Roth MD 10/10/2019 02:15 P
[2019-10-10] MEDS ORDERED: HYDR4TAB PO (14:25)
[2019-10-10] MEDS ORDERED: HYDROmorphone 2 MG TAB PO ONE (14:30)
[2019-10-10 16:22] VITALS: BP 110/61
== END 2019-10-10 17:00 | disposition home or self-care (01) ==
LOC: M ED 13:39
DX: R10.9 Unspecified abdominal pain (principal); I51.9 Heart disease, unspecified; E11.9 Type 2 diabetes mellitus without complications; E78.5 Hyperlipidemia, unspecified; Z79.4 Long term (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; Z79.899 Other long term (current) drug therapy; Z91.041 Radiographic dye allergy status; Z91.040 Latex allergy status; Z88.0 Allergy status to penicillin; Z88.2 Allergy status to sulfonamides; Z91.89 Other specified personal risk factors, not elsewhere classified; Z88.1 Allergy status to other antibiotic agents; Z88.5 Allergy status to narcotic agent; Z91.018 Allergy to other foods; Z88.8 Allergy status to other drugs, medicaments and biological substances; Z91.02 Food additives allergy status

== ENCOUNTER 2019-10-14 08:59 | Outpatient (CLI) | payer OTHER ==
[~2019-10-14] VITALS: Ht 165.1 cm; Wt 69.8 kg
[2019-10-14] MEDS ORDERED: SODIUM CHLORIDE 0.9% INJ 10 ML SYR IV SCH (09:00)
[2019-10-14 09:33] VITALS: BP 97/56
[2019-10-14 10:03] LABS: HEMOGLOBIN A1c 10.8 %
== END 2019-10-14 09:30 | disposition home or self-care (01) ==
LOC: M INFU 08:59
PROVIDERS: ATTEND Family Medicine
DX: E11.65 Type 2 diabetes mellitus with hyperglycemia (principal); E83.42 Hypomagnesemia
CPT/HCPCS: 36591; 83036; 83735; J1642

== ENCOUNTER 2019-10-20 18:07 | Emergency (ER) | payer OTHER ==
[~2019-10-20] VITALS: Ht 170.2 cm; Wt 68.6 kg
[~2019-10-20 18:07] MED LIST changes: -D31000TA2 PO; +MOVA1TAB PO; -NALO12.5 PO; +VITAD1000T PO
[2019-10-20 19:15] LABS: BASO % 0.6 % (0.0-1.0); EOS % 0.6 % (0.0-3.0); HEMATOCRIT 39.6 % (36.0-47.0); HEMOGLOBIN 12.6 g/dl (12.0-15.5); LYMPH # 1.6 10^3/uL (1.5-5.0); LYMPH % 32.1 % (24.0-44.0); MEAN CORPUSCULAR HEMOGLOBIN 30.7 pg (27.0-33.0); MEAN CORPUSCULAR HGB CONC 31.8 g/dl (32.0-36.5); MEAN CORPUSCULAR VOLUME 96.6 fl (80.0-96.0); MONO # 0.5 10^3/uL (0.0-0.8); MONO % 9.8 % (0.0-5.0); NEUTROPHILS # 2.8 10^3/uL (1.5-8.5); NEUTROPHILS % 56.7 % (36.0-66.0); PLATELET COUNT, AUTOMATED 184 10^3/uL (150-450); WHITE BLOOD COUNT 4.9 10^3/uL (4.0-10.0)
[2019-10-20] MEDS ORDERED: ONDANSETRON 4MG/2ML VIAL IV ONE (19:30)
[2019-10-20] MEDS ORDERED: NS 1,000 ML IV ONE (19:30)
[2019-10-20 19:54] LABS: ALBUMIN 3.5 GM/DL (3.2-5.2); ALT/SGPT 40 U/L (12-78); BILIRUBIN,DIRECT < 0.1 MG/DL (0.0-0.2); BILIRUBIN,TOTAL 0.2 MG/DL (0.2-1.0); BLOOD UREA NITROGEN 13 MG/DL (7-18); CALCIUM LEVEL 10.4 MG/DL (8.5-10.1); CARBON DIOXIDE LEVEL 26 MEQ/L (21-32); CHLORIDE LEVEL 99 MEQ/L (98-107); CREATININE FOR GFR 0.81 MG/DL (0.55-1.30); GLOMERULAR FILTRATION RATE > 60.0 (>51); GLUCOSE, FASTING 372 MG/DL (70-100); LIPASE 114 U/L (73-393); POTASSIUM SERUM 4.4 MEQ/L (3.5-5.1); SODIUM LEVEL 135 MEQ/L (136-145); TOTAL PROTEIN 8.4 GM/DL (6.4-8.2)
[2019-10-20] MEDS ORDERED: ACETAMINOPHEN *IV* 1,000 MG in IV 1 EA IV ONE (20:15)
[2019-10-20] MEDS: READI-CAT 2 PO SCH ×3 (20:29→21:01)
--- NOTE | 2019-10-20 22:23 | REPVR ---
PROCEDURE INFORMATION: Exam: CT Abdomen And Pelvis Without Contrast Exam date and time: 10/20/2019 9:45 PM Age: 59 years old Clinical indication: Abdominal pain; Additional info: Poss bowel obstruction, v all po, HX hernias, pain worse TECHNIQUE: Imaging protocol: Computed tomography of the abdomen and pelvis without contrast. Radiation optimization: All CT scans at this facility use at least one of these dose optimization techniques: automated exposure control; mA and/or kV adjustment per patient size (includes targeted exams where dose is matched to clinical indication); or iterative reconstruction. COMPARISON: CT ABD PELVIS W/O CONTRAST 09/28/2019 5:08 PM FINDINGS: Tubes, catheters and devices: Spinal stimulator device is present. Lungs: No suspicious mass or airspace process in the visualized lung bases. Liver: Noncontrast liver shows no obvious lesion. Gallbladder and bile ducts: Gallbladder is surgically absent. Pancreas: Pancreas is largely fatty replaced. No mass or focal inflammation. Spleen: Noncontrast spleen shows no obvious focal deformity. Adrenals: Adrenal glands are normal in appearance. Kidneys and ureters: Kidneys are unremarkable aside from nonobstructive lower pole left renal stones.. Stomach and bowel: Left lower quadrant ileostomy is present without obstruction or dehiscence. Patient has apparently undergone a subtotal colectomy with Maribell's pouch suture line in the distal sigmoid. Left lower quadrant peristomal hernia contains nonobstructed noninflamed bowel. No evidence of small bowel obstruction. Appendix: Appendix is apparently absent secondary to the colectomy. Intraperitoneal space: No pneumoperitoneum. Vasculature: No aortic aneurysm. Lymph nodes: No enlarged lymph nodes. Bladder: Urinary bladder appears normal. Reproductive: Uterus is surgically absent. Bones/joints: Bony structures show no acute fracture or destructive process. Soft tissues: Prior ventral hernia repair changes are present without fluid collection or dehiscence. Other findings: Evaluation of solid organs is limited without IV contrast. IMPRESSION: 1. Subtotal colectomy with left lower quadrant ileostomy. No obstructive change of bowel and no evidence of perforation or abscess. Left peristomal hernia without acute complication 2. Nonobstructive left renal calculus. Electronically signed by: Mehran Singh On 10/20/2019 22:23:42 PM
[2019-10-20 23:11] VITALS: BP 118/73
== END 2019-10-20 23:24 | disposition home or self-care (01) ==
LOC: M ED 18:07
DX: R10.9 Unspecified abdominal pain (principal); R11.2 Nausea with vomiting, unspecified; N20.0 Calculus of kidney; E11.9 Type 2 diabetes mellitus without complications; E78.5 Hyperlipidemia, unspecified; J45.909 Unspecified asthma, uncomplicated; Z86.718 Personal history of other venous thrombosis and embolism; Z87.442 Personal history of urinary calculi; G89.29 Other chronic pain; Z79.4 Long term (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; Z79.899 Other long term (current) drug therapy; Z88.0 Allergy status to penicillin; Z88.2 Allergy status to sulfonamides; Z88.1 Allergy status to other antibiotic agents; Z88.8 Allergy status to other drugs, medicaments and biological substances; Z88.6 Allergy status to analgesic agent; Z88.5 Allergy status to narcotic agent; Z91.018 Allergy to other foods; Z91.041 Radiographic dye allergy status; Z91.89 Other specified personal risk factors, not elsewhere classified; Z91.02 Food additives allergy status
CPT/HCPCS: 74176; 80053; 80076; 83690; 85025; 96361; 96374; 96375; 99284; J0131; J1642; J2405

== ENCOUNTER → 2019-10-25 | Outpatient (CLI) | payer OTHER ==
[~2019-10-25] MED LIST changes: +D31000TA2 PO; +DICY10CA13 PO; -MOVA1TAB PO; +NALO12.5 PO; -VITAD1000T PO
--- NOTE | 2019-10-30 04:08 | ECWPNPC ---
PATIENT NAME: GLENN FELDER : 1960 GENDER: FEMALE VISIT DATE: 10/25/2019 DISCHARGE DATE: 10/25/19 1221 VISIT LOCKED DATE TIME: PHYSICIAN: NAVNEET BRAY RESOURCE: NAVNEET BRAY REASON FOR APPOINTMENT 1. POST TPI HISTORY OF PRESENT ILLNESS GENERAL: HERE FOR POST PROCEDURE FOLLOW-UP. TRIGGER POINT INJECTIONS TO BILATERAL NECK WERE DONE ON 09/27/2019. PATIENT REPORTS MARKED REDUCTION IN NECK PAIN AND IMPROVED MOBILITY SINCE INJECTIONS. HAVING RECURRENCE OF HER SEVERE ABDOMINAL PAIN ISSUES. FOLLOWS WITH DR. BRAN. SHE MAY BE SEEING A SURGEON. -. FALL RISK SCREENING: SCREENING :TWO OR MORE FALLS WITHOUT INJURY IN THE PAST YEAR PAIN SCREENING: PATIENT HAS A COMPLAINT OF ACUTE OR CHRONIC PAIN :YES LOCATION OF PAIN:NECK SINCE PROCEDURE DOING "MUCH BETTER NURSING NOTE: -. PAIN CENTER INTAKE QUESTIONS: DO YOU HAVE A HISTORY OF MRSA? :NO DO YOU TAKE A BLOOD THINNERS? :NO DO YOU HAVE ANY BLEEDING DISORDERS? :NO ANY NEW NUMBNESS OR WEAKNESS IN YOUR LEGS OR ARMS? :NO ANY PACEMAKER,DEFIBRILLATOR, OR DORSAL COLUMN STIMULATOR? :NO DO YOU HAVE ANY RASHES OR OPEN SORES? :NO ARE YOU ALLERGIC TO IV DYE? :NO ARE YOU DIABETIC? :NO ANY NEW PROBLEMS WITH YOUR MEDICATIONS? :NO HAVE YOU RECEIVED A VACCINE IN THE PAST 30 DAYS? :NO DO YOU PLAN TO RECEIVE A VACCINE IN THE NEXT 21 DAYS? :NO DO YOU NEED ANY PRESCRIPTION? :NO DO YOU TAKE ANY IMMUNOSUPPRESSIVE MEDICATIONS? :NO IS THERE A CHANCE YOU COULD BE ? :NO ARE YOU BREAST FEEDING? :NO CURRENT MEDICATIONS TAKING IPRATROPIUM-ALBUTEROL 0.5-2.5 (3) MG/3ML SOLUTION 3 ML INHALATION EVERY 6 HRS PRN TAKING SIMETHICONE 80 MG TABLET CHEWABLE 2 TABLETS AFTER MEALS AND AT BEDTIME NEEDED ORALLY THREE TIMES A DAY NEEDED FOR ABDOMINAL PAIN AND DISTENTION TAKING AMITRIPTYLINE HCL 50 MG TABLET DIRECTED ORALLY 1 TAB IN AM AND 3 TABS AT BEDTIME TAKING PEDIALYTE BOTTLE SOLUTION 330 ML ORALLY THREE TIMES DAILY TAKING MAY SAVAGE BAGS CLEAR VELCRO CLOSER ([id number]) ICD:V55.3 CHANGE NEEDED (EDUARD) TAKING MAY HAVE SAVAGE WAFERS NEW IMAGE SKIN BARRIERS FLATING FLANGES ICD: V55.3 ([id number] 2 04/15 CHANGE NEEDED (EDUARD) TAKING BABY WIPES 1 MISCELLANEOUS DIRECTED TOPICALLY PRN DX:569.62 TAKING SYRINGE 2-3 ML 3 ML MISCELLANEOUS DX: R11.0 INTRAMUSCULARLY TID PRN TAKING NYSTATIN [id number] UNIT/GM POWDER APPLY TO AFFECTED AREA(S) AROUND STOMA 2 TIMES A DAY DIRECTED UNTIL HEALED TAKING LACTULOSE 20 GM/30ML SOLUTION 15 ML ORALLY THREE TIMES DAILY TAKING ZOFRAN 4 MG/2ML SOLUTION 4 MG INJECTION BID AT LEAST 8H APART TAKING HOSPITAL BED USE DAILY DIRECTED DX: K91.2, G89.4, G90.522, N81.84 TAKING GLUCOMETER TESTING 4 TIMES A DAY AND NEEDED DX: , NOTES: MEDICAID #: [id number] TAKING TEST STRIPS - - DX: FOUR TIMES DAILY NEEDED, NOTES: MEDICAID #: [id number] TAKING LANCETS MISC. - MISCELLANEOUS - DX: FOUR TIMES DAILY NEEDED, NOTES: MEDICAID #: [id number] TAKING BENTYL 10 MG CAPSULE 1 CAPSULE ORALLY FOUR TIMES A DAY PRN ABDOMINAL CRAMPING TAKING TRIAMCINOLONE ACETONIDE 0.1 % CREAM APPLY A THIN LAYER TO RED AREAS ON FINGERS EXTERNALLY TWICE A DAY TAKING METOCLOPRAMIDE HCL 10 MG TABLET 1 TABLET BEFORE MEALS AND BEDTIME ORALLY THREE TIMES DAILY BEFORE MEALS TAKING DICYCLOMINE HCL 10 MG CAPSULE 1 CAPSULE ORALLY FOUR TIMES DAILY TAKING NEBULIZER COMPRESSOR 1 INH DX: J45.909 EVERY 4 HOURS NEEDED TAKING NEBULIZER/TUBING/MOUTHPIECE - KIT DIRECTED DX: J45.909 EVERY 4 HOURS NEEDED TAKING ALBUTEROL SULFATE HFA 108 (90 BASE) MCG/ACT AEROSOL SOLUTION 2 PUFFS NEEDED INHALATION EVERY 4 HRS PRN, NOTES: NONE RECENTLY TAKING SUCRALFATE 1 GM TABLET 1 TAB ORALLY TWICE A DAY TAKING LEVEMIR FLEX TOUCH 100 UNIT/ML SOLUTION 35 UNITS SUBCUTANEOUS IN THE MORNING TAKING PEN NEEDLES 08/27" DIRECTED SUBCUTANEOUSLY DAILY DX: E11 TAKING ALCOHOL PREP PAD 70 % PAD DIRECTED E11.9 TEST BLOOD SUGAR QID PRN TAKING AMMONIUM LACTATE 12 % CREAM 1 APPLICATION EXTERNALLY TWICE A DAY TO FEET TAKING ESTRADIOL 0.1 MG/GM CREAM 1 GRAM VAGINAL DAILY TAKING HYDROMORPHONE HCL 4 MG TABLET 1 TABLET (4MG) ALTERNATING WITH2 TABS (8 MG) ORALLY EVERY 3 HOURS NEEDED MDD: 8 TABS MEDICATION LIST REVIEWED AND RECONCILED WITH THE PATIENT PAST MEDICAL HISTORY DM II WITH NEUROPATHY, HBA1C GOAL IS 8.0 FOR NOW B/C OF RISK OF HYPOGLYCEMIA, CONSIDER LOWER IF CONSISTENTLY ACHIEVED ASTHMA HYPERLIPIDEMIA GERD NEPHROLITHIASIS 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 ALLERGIC RHINITIS CHRONIC MAXILLARY SINUSITIS CHRONIC HEADACHES (PAIN MANAGEMENT) CHRONIC PAIN SYNDROME/RSD (PAIN MANAGEMENT) PERSONAL HISTORY OF VENOUS THROMBOSIS AND EMBOLISM (RESOLVED 12/19/2009) ABDOMINAL HERNIA FLEXURAL ECZEMA ALLERGIES IODINE: NERVES, TIGHT MUSCLES - SIDE EFFECTS GABAPENTIN: NERVOUS SYSTEM,SHAKEY - SIDE EFFECTS GABITRIL: NERVOUS - SIDE EFFECTS KETOROLAC TROMETHAMINE: VOMITING - SIDE EFFECTS MEPERIDINE HCL: OUT OF BODY EXPERIENCE - SIDE EFFECTS MORPHINE SULFATE: SEVERE H/A WITH BIG DOSE - SIDE EFFECTS PROMETHAZINE HCL: OUT OF BODY EXPERIENCE - SIDE EFFECTS TRAMADOL: SHAKES - SIDE EFFECTS OXYCODONE: VOMITING,HIVES - ALLERGY PENICILLIN (FOR ALLERGIES USE ONLY): HIVES - ALLERGY FENTANYL: NERVOUS - SIDE EFFECTS DROPERIDOL: OUT OF BODY - SIDE EFFECTS CODEINE SULFATE: OUT OF BODY EXPERIENCE - SIDE EFFECTS PHENOTHIAZINES: NERVOUS SYSTEM - SIDE EFFECTS QUINOLONES- CIPRO,TEQUIN: HIVES - ALLERGY RED FOOD DYE: RASH - ALLERGY LIDODERM (LICOCANINE): HEART RACES - SIDE EFFECTS SULFA: HIVES - ALLERGY ASPIRIN: HIVES - ALLERGY ATIVAN: HALLUCINATIONS - SIDE EFFECTS AZITHROMYCIN: HIVES - ALLERGY BACLOFEN: AFFECTED NERVOUS SYT - SIDE EFFECTS LYRICA: SHAKES, EVERYTHING IS BLACK - SIDE EFFECTS VICODIN: CONFUSION - SIDE EFFECTS MACROBID: HIVES, BLURRED VISION - ALLERGY READI-CAT: HIVES - ALLERGY ALBUTEROL SULFATE: COUGH - ALLERGY GASTROGRAFIN: ONLY 1 BOTTLE PER TEST DAY (CAN NOT TOLERATE ANY MORE THAN 1 BOTTLE) - CONTRAINDICATION LATEX (FOR ALLERGY USE ONLY): DIFFICULTY - ALLERGY TIZANIDINE HCL: HIVES - ALLERGY SURGICAL HISTORY NO PERSONAL HX OF SEVERE REACTION TO ANESTHESIA, HER BROTHER HAS "HAD HIS THROAT CLOSE OFF TWO DIFFERENT TIMES" WITH GENERAL ANESTHESIA SCALP TUMOR 1984 LUMPECTOMIES - REPORTED BENIGN BILATERAL 16 AND 21 YO TOTAL HYSTERECTOMY-DUE TO OVARIAN CYSTS/MASS 21 YO BILAT SYMPATHECTOMY 1987 AV FISTULA REPAIR L LEG 1988 CHOLECYSTECTOMY LATE SBO 2001 ABDOMINAL HERNIA REPAIR 2004 VENTRAL HERNIA REPAIR 2009 DORSAL COLUMN STIMULATOR TAKEN OUT AND NEW ONE IMPLANTED 02/21 SMALL PORTION OF SMALL BOWEL RESECTED AND VENTRAL HERNIA REPAIRS (ANDREASJACQUELINE) 06/2010 ILEOSTOMY-EDUARD 07/28/12 CYST REMOVED RIGHT NOSTRIL- DR RAJPUT. 09/17/12 REPAIR TWO HERNIAS AND REPAIR OF STOMA 03/26 HERNIA REPAIR X2 08/31/13 PARASTOMAL HERNIA REPAIR- EDUARD 06/26 HERNIA AND STOMA REPAIR-EDUARD 06/11 PERASTOMAL HERNIA REPAIR, WITH A SMALL BOWEL OBSTRUCTION 03/2017 INFUSAPORT PLACMENT ([facility]) 08/2017 HERNIA REPAIR X4 STOMA REVERSAL 10/2017 BATTERY REPLACEMENT FOR STIMULATOR 02/2018 FAMILY HISTORY FATHER: ALIVE, CANCER, DIAGNOSED WITH UNSPECIFIED CEREBRAL ARTERY OCCLUSION WITH CEREBRAL INFARCTION, OTHER MALIGNANT NEOPLASM OF UNSPECIFIED SITE MOTHER: , OF MYELODYSPLASTIC SYNDROME; WAS ALSO KNOWN TO HAVE CAD, OTHER MALIGNANT NEOPLASM OF UNSPECIFIED SITE SIBLINGS: ALIVE 1 BROTHER(S) - HEALTHY. 2 BROTHERS DM, KIDNEY FAILURE. SOCIAL HISTORY GENERAL: TOBACCO USE ARE YOU A:NONSMOKER NEVER SMOKER LATEX QUESTIONNAIRE LATEX ALLERGY : HAVE YOU EVER DEVELOPED ANY TYPE OF REACTION AFTER HANDLING LATEX PRODUCTS SUCH RUBBER GLOVES, CONDOMS, DIAPHRAGMS, BALLOONS, SOCKS, OR UNDERWEAR?YES SEE ALLERGY LIST LATEX ALLERGY : HAVE YOU EVER DEVELOPED ANY TYPE OF REACTION DURING OR AFTER DENTAL APPOINTMENT, VAGINAL/RECTAL EXAMINATION, SURGICAL PROCEDURE, OR ANY OTHER EXPOSURE?YES - PLEASE INDICATE :OTHER (DOCUMENT IN NOTES) - PLEASE INDICATE :DENTAL PROCEDURE, VAGINAL EXAM, RECTAL EXAM, SURGICAL PROCEDURE, OTHER (DOCUMENT IN NOTES) DATE ASKED : 09/24/2019 LATEX RISK : HAVE YOU EVER HAD ANY DIFFICULTY BREATHING OR HIVES AFTER EATING OR HANDLING ANY FRUITS, OR VEGETABLES; SUCH KIWI, BANANAS, STONE FRUITS, OR CHESTNUTSYES - PLEASE INDICATE : BANANAS, STONE FRUITS LATEX RISK : DO YOU HAVE A PREVIOUS PERSONAL HISTORY OF MORE THAN NINE SURGERIES, SPINA BIFIDA, OR REPEATED CATHERIZATIONS? YES - PLEASE INDICATE : > 9 SURGERIES LATEX RISK : ARE YOU FREQUENTLY EXPOSED TO LATEX PRODUCTS IN YOUR OCCUPATION?NO ALCOHOL SCREENING DID YOU HAVE A DRINK CONTAINING ALCOHOL IN THE PAST YEAR?NO POINTS0 INTERPRETATIONNEGATIVE RECREATIONAL DRUG USE DRUG USE?NO CAFFEINE CAFFEINE USE?NO SEXUAL HX HAD SEX IN THE LAST 12 MONTHS (VAGINAL, ORAL, OR ANAL)?NO HAVE YOU EVER HAD AN STD?NO HIV / HEP-C SCREENING HIV TEST OFFERED TO PATIENT:YES DATE OFFERED:07/18/2016 TEST ACCEPTED:NO HEP-C TEST OFFERED TO PATIENT:YES DATE OFFERED:07/18/2016 REASON:PATIENT DECLINED TEST ACCEPTED:NO REASON:PATIENT DECLINED SHINTO [id number] [employer] L[employer]UAGES SPOKEN:KOREAN EDUCATION LEVEL OF EDUCATION:[employer] 8TH GRADE LEARNING BARRIERS / SPECIAL NEEDS CHANGE FROM LAST VISIT?NO BARRIERS TO LEARNING?NO HEARING IMPAIRED?NO VISION IMPAIRED?YES COGNITIVELY IMPAIRED?NO :CORRECTIVE LENSES READINESS TO LEARN?YES LEARNING PREFERENCES?NO LEARNING CAPABILITIES PRESENT?YES EMOTIONAL BARRIERS?NO SPECIAL DEVICES?YES :CANE, WHEELCHAIR AIRPLANE RIGGER NEEDED?NO DOMESTIC VIOLENCE DO YOU FEEL SAFE IN YOUR ENVIRONMENT?YES OCCUPATION: DISABLED. DIET: NO CONCENTRATED SWEETS., CARBOHYDRATE CONTROLLED. EXERCISE: NO REGULAR EXERCISE. MARITAL STATUS: SINGLE. OTHERS AT HOME: NONE. PAIN CLINIC PFS, CLERGY, PUBLIC HEALTH REFERRALS PFS REFERRAL NEEDED?NO CLERGY REFERRAL NEEDED?NO PUBLIC HEALTH REFERRAL NEEDED?NO HAS THE PATIENT BEEN EDUCATED REGARDING HIS/HER PLAN OF CARE?YES HAS THE PATIENT BEEN EDUCATED REGARDING PAIN, THE RISK FOR PAIN, THE IMPORTANCE OF EFFECTIVE PAIN MANAGEMENT, AND THE PAIN ASSESSMENT PROCESS?YES ADVANCE DIRECTIVE ADVANCE DIRECTIVE DISCUSSED WITH PATIENT:YES STATES SHE HAS HCP - BROTHER (LUCAS); COPY PLACED IN RECORDS, HE IS ALSO POA. SHE ALSO HAS MOLST FORM THAT IS ON FILE HERE HOSPITALIZATION/MAJOR DIAGNOSTIC PROCEDURE [facility]- SMALL BOWEL OBSTRUCTION, WAS IN HOSPITAL 11 DAYS 09/2015 [facility]- SMALL BOWEL OBSTRUCTION, WAS IN HOSPITAL IN 5 DAYS 03/2016 [facility]- SMALL BOWEL OBSTRUCTION 04/12/16-04/17/16 [facility]- SMALL BOWEL OBSTRUCTION 06/2016 [facility]- SMALL BOWEL OBSTRUCTION 03/17/17-04/18/17 [facility] - SMALL BOWEL OBSTRUCTION, PNEUMONIA, PSEUDOGOUT 11/2018 [facility] - SMALL BOWEL OBSTRUCTION 02/2019 [facility]-SHORT GUT SYNDROME 06/29/19 REVIEW OF SYSTEMS CONSTITUTIONAL: ANY RECENT FEVER NO . CHILLS NO . WEIGHT CHANGE OF UNKNOWN REASONS NO . GASTROENTEROLOGY: NEW UNEXPLAINABLE CHANGES IN BOWEL CONTROL NO . CONSTIPATION NO . GENITOURINARY: ANY NEW CHANGE IN BLADDER CONTROL? NO . NEUROLOGY: NEW ONSET DIZZINESS OR NEUROLOGICAL CHANGES NOT MENTIONED NO . NEW NUMBNESS OR PAIN PATTERNS NOT MENTIONED AND PERTINENT TO TODAY'S VISIT NO . CARDIOLOGY: NEW CHEST PRESSURE NO . NEW CHEST PAIN NO . RESPIRATORY: UNEXPLAINABLE COUGH NO . NEW SHORTNESS OF BREATH NO . VITAL SIGNS WT 167.4 LBS, HT 67 IN, BMI 26.22 INDEX, BP 132/86 MM HG, HR 94 /MIN, RR 18 /MIN, TEMP 97.3 F, OXYGEN SAT % 95%, SAFE IN ENV? (Y/N) YES, NA INITIALS SC 11:33. EXAMINATION GENERAL EXAMINATION: GENERALAWAKE,ALERT ,PLEASANT . PSYCHAFFECT NORMAL . LUNGS:LUNG ROGERS ARE CLEAR TO AUSCULTATION BILATERALLY. GOOD MOVEMENT OF AIR . HEART:S1, S2 IN A REGULAR RATE AND RHYTHM. NO SIGNIFICANT MURMURS, RUBS OR GALLOPS NOTED . ASSESSMENTS MYALGIA OF MUSCLE OF NECK - M79.18 (PRIMARY) TREATMENT MYALGIA OF MUSCLE OF NECK NOTES: CONTINUE HOME EXERCISE AND STRETCHING. PROCEDURE CODES FA211 ESTABILISHED PATIENT [facility] CHARGE DISPOSITION & COMMUNICATION FOLLOW UP 2 MONTHS (REASON: NECK PAIN) ELECTRONICALLY SIGNED BY DANIELE MCKEON ON 10/29/2019 AT 08:42 AM EDT DISCLAIMER : THIS IS A VISIT SUMMARY EXTRACTED FROM THE [employer] CHART. IT IS NOT A COPY OF THE [employer] PROGRESS NOTE. MARLYN
== END ==
LOC: M PAIN 11:30
PROVIDERS: ATTEND Nurse Practitioner Family
DX: M79.18 Myalgia, other site (principal)

== ENCOUNTER 2019-11-15 02:30 | Outpatient (CLI) | payer OTHER ==
[~2019-11-15 02:30] MED LIST changes: -DICY10CA13 PO
== END 2019-11-15 14:50 | disposition home or self-care (01) ==
LOC: M INFU 02:30
PROVIDERS: ATTEND Family Medicine
DX: E83.42 Hypomagnesemia (principal); E11.65 Type 2 diabetes mellitus with hyperglycemia
CPT/HCPCS: 36591; 96523; J1642

== ENCOUNTER → 2019-11-24 | Outpatient (REF) | payer OTHER ==
[~2019-11-24] MED LIST changes: +DICY10CA13 PO
[2019-12-27 10:26] LABS: APPEARANCE, URINE HAZY (CLEAR); BACTERIA, URINE AUTO 1+ (NEGATIVE); BILIRUBIN, URINE AUTO NEGATIVE (NEGATIVE); BLOOD, URINE BLOOD NEGATIVE (NEGATIVE); COLOR, URINE YELLOW (YELLOW); GLUCOSE, URINE (UA) AUTO 1+ mg/dL (NEGATIVE); KETONE, URINE AUTO 1+ mg/dL (NEGATIVE); LEUKOCYTE ESTERASE, URINE AUTO NEGATIVE (NEGATIVE); NITRITE, URINE AUTO NEGATIVE (NEGATIVE); PROTEIN, URINE AUTO NEGATIVE (NEGATIVE); RBC, URINE AUTO 2 /HPF (0-3); SPECIFIC GRAVITY URINE AUTO 1.013 (1.002-1.035); SQUAMOUS EPITHELIAL CELL UR AU 5 /HPF (0-6); UROBILINOGEN, URINE AUTO 0.2 mg/dL (0.0-2.0); WBC, URINE AUTO 3 /HPF (0-3)
== END ==
LOC: M SFHCPLAZ 09:34
PROVIDERS: ATTEND Family Medicine
DX: R30.0 Dysuria (principal)

== ENCOUNTER 2019-12-14 09:59 | Outpatient (CLI) | payer OTHER ==
[~2019-12-14] VITALS: Ht 162.6 cm; Wt 69.8 kg
[~2019-12-14 09:59] MED LIST changes: -DICY10CA13 PO; +SODIUM CHLORIDE 0.9% INJ 10 ML SYR IV SCH
[2019-12-14 10:55] VITALS: BP 137/71
[2019-12-14 11:03] VITALS: BP 142/74
[2019-12-14 11:15] LABS: HEMATOCRIT 39.3 % (36.0-47.0); HEMOGLOBIN 12.5 g/dl (12.0-15.5); MEAN CORPUSCULAR HEMOGLOBIN 30.9 pg (27.0-33.0); MEAN CORPUSCULAR HGB CONC 31.8 g/dl (32.0-36.5); PLATELET COUNT, AUTOMATED 183 10^3/uL (150-450); RED BLOOD COUNT 4.05 10^6/uL (4.00-5.40); WHITE BLOOD COUNT 5.5 10^3/uL (4.0-10.0)
[2019-12-14 12:21] LABS: HEMOGLOBIN A1c 9.7 %
== END 2019-12-14 10:55 | disposition home or self-care (01) ==
LOC: M INFU 09:59
PROVIDERS: ATTEND Family Medicine
DX: E83.42 Hypomagnesemia (principal); E11.65 Type 2 diabetes mellitus with hyperglycemia

== ENCOUNTER → 2019-12-16 | Outpatient (CLI) | payer OTHER ==
[~2019-12-16] MED LIST changes: +DICY10CA13 PO; -SODIUM CHLORIDE 0.9% INJ 10 ML SYR IV SCH
== END ==
LOC: M LABSMTC 10:47
PROVIDERS: ATTEND Anesthesiology
DX: Z01.812 Encounter for preprocedural laboratory examination (principal); Z20.828 Contact with and (suspected) exposure to other viral communicable diseases
CPT/HCPCS: C9803; U0003

== ENCOUNTER 2019-12-17 14:48 | Outpatient (CLI) | payer OTHER ==
[~2019-12-17] VITALS: Ht 170.2 cm; Wt 73.0 kg
[~2019-12-17 14:48] MED LIST changes: -DICY10CA13 PO; +SODIUM CHLORIDE 0.9% INJ 10 ML SYR IV SCH
[2019-12-17 15:00] VITALS: BP 169/79
[2019-12-17] MEDS ORDERED: MAGNESIUM SULFATE 1GM/100ML D5W BAG (10MG/ML) As Ordered ONE ×4 (15:05→18:00)
[2019-12-17] MEDS: [UNRECOGNIZED DRUG - OTHER] IV SCH ×6 (16:11→18:05)
[2019-12-17] MEDS: MAG SULF IV SCH ×6 (16:11→18:05)
[2019-12-17 19:20] VITALS: BP 127/59
== END 2019-12-17 19:20 | disposition home or self-care (01) ==
LOC: M INFU 14:48
PROVIDERS: ATTEND Family Medicine
DX: E83.42 Hypomagnesemia (principal); Z88.0 Allergy status to penicillin; Z88.1 Allergy status to other antibiotic agents; Z88.2 Allergy status to sulfonamides; Z88.8 Allergy status to other drugs, medicaments and biological substances; Z88.6 Allergy status to analgesic agent; Z91.048 Other nonmedicinal substance allergy status
CPT/HCPCS: 96366; 96375; J3475

== ENCOUNTER 2019-12-21 08:44 | Day surgery (SDC) | payer OTHER ==
[~2019-12-21] VITALS: Ht 170.2 cm; Wt 79.7 kg
[2019-12-21] VITALS (8 sets, daily range): BP systolic 121–143; BP diastolic 64–88
[~2019-12-21 08:44] MED LIST changes: +ERTAPENEM SODIUM 1 GM in NS MINI-BAG PLUS 50 ML IV ONE; +LR 1,000 ML IV ONE; -SODIUM CHLORIDE 0.9% INJ 10 ML SYR IV SCH
[2019-12-21] MEDS ORDERED: propofoL 200 MG/20 ML VIAL As Ordered ONE (09:37)
[2019-12-21] MEDS ORDERED: ROCURONIUM BROMIDE 50 MG/5 ML VIAL As Ordered ONE (09:37)
[2019-12-21] MEDS ORDERED: BUPIVACAINE HCL 0.25% 30ML VIAL As Ordered ONE ×2 (09:39→12:39)
[2019-12-21] MEDS ORDERED: BUPIVACAINE/EPIN 0.25% 30 ML VIAL As Ordered ONE ×2 (09:39→12:38)
[2019-12-21] MEDS ORDERED: BUPIVACAINE LIPOSOME/PF 1.3% 20ML VIAL (13.3MG/ML)(EXPAREL)(C9290 PER1MG) As Ordered ONE (09:40)
[2019-12-21] MEDS ORDERED: AMIT50TA PO (10:06)
[2019-12-21] MEDS ORDERED: HYDROmorphone HCL 2 MG/ML 1ML VIAL (J1170) As Ordered ONE (11:16)
[2019-12-21] MEDS ORDERED: SUGAMMADEX SODIUM 500 MG/5 ML VIAL (BRIDION) As Ordered ONE (11:52)
[2019-12-21] MEDS ORDERED: GLUCAGON INJ 1MG VIAL SC PRN (12:30)
[2019-12-21] MEDS ORDERED: DEXTROSE 50% 50 ML SYRINGE IV PRN (12:30)
[2019-12-21] MEDS ORDERED: ALBUTEROL SULFATE 2.5 MG/0.5 ML INH NEB SOLN INH PRN (12:30)
[2019-12-21] MEDS ORDERED: GLUCOSE 4GM CHEW TABLET PO PRN (12:30)
[2019-12-21] MEDS ORDERED: HYDROMORPHONE HCL 0.5 MG/ 0.5 ML SYRINGE (J1170 PER 1) As Ordered ONE (12:36)
[2019-12-21] MEDS: HYDROMORPHONE HCL 0.5 MG/ 0.5 ML SYRINGE (J1170 PER 1) IV PRN ×5 (12:40→13:45)
[2019-12-21] MEDS ORDERED: fentaNYL 100 MCG/2 ML INJECTION (J3010) IV PRN (13:00)
[2019-12-21] MEDS ORDERED: LR 1,000 ML IV SCH (13:00)
[2019-12-21] MEDS ORDERED: ONDANSETRON 4MG/2ML VIAL IV PRN ×2 (13:00→20:45)
[2019-12-21] MEDS: LR 1,000 ML IV SCH ×2 (14:43→22:59)
[2019-12-21] MEDS: METOCLOPRAMIDE 10 MG TAB PO SCH (17:01)
[2019-12-21] MEDS: HYDROmorphone (DILAUDID) 4 MG TAB PO PRN ×2 (17:02→20:48)
[2019-12-21] MEDS: HumaLOG INSULIN (NovoLOG) PER UNIT SC SCH (17:30)
[2019-12-21] MEDS: SIMETHICONE 80 MG CHEW TAB PO SCH (18:38)
[2019-12-21] MEDS: SUCRALFATE 1 GM TAB PO SCH (20:47)
[2019-12-21] MEDS: SENOKOT S TAB PO SCH (20:47)
[2019-12-21] MEDS: TRIAMCINOLONE ACET 0.1% CREAM 80 GM TOP SCH (20:48)
[2019-12-21] MEDS ORDERED: AMITRIPTYLINE 50 MG TAB PO SCH (21:00)
[2019-12-21] MEDS ORDERED: HumaLOG INSULIN (NovoLOG) PER UNIT SC SCH (21:00)
[2019-12-22] MEDS: HYDROmorphone (DILAUDID) 4 MG TAB PO PRN ×4 (01:29→12:27)
[2019-12-22 02:00] VITALS: BP 136/70
[2019-12-22] MEDS: LR 1,000 ML IV SCH ×2 (05:19→12:19)
[2019-12-22] MEDS: HumaLOG INSULIN (NovoLOG) PER UNIT SC SCH ×2 (08:30→11:57)
[2019-12-22] MEDS: SIMETHICONE 80 MG CHEW TAB PO SCH ×2 (08:30→11:56)
[2019-12-22] MEDS: METOCLOPRAMIDE 10 MG TAB PO SCH ×2 (08:31→11:58)
[2019-12-22] MEDS: SENOKOT S TAB PO SCH (08:32)
[2019-12-22] MEDS: SUCRALFATE 1 GM TAB PO SCH (08:32)
[2019-12-22] MEDS: TRIAMCINOLONE ACET 0.1% CREAM 80 GM TOP SCH (08:33)
[2019-12-22] MEDS ORDERED: AMITRIPTYLINE 50 MG TAB PO SCH ×2 (09:00)
[2019-12-22] MEDS ORDERED: INFLUENZA QUADRIVALENT PF VACCINE 0.5ML SYRINGE IM ONE (09:00)
[2019-12-22 10:00] VITALS: BP 126/71
[2019-12-22] MEDS ORDERED: SODIUM CHLORIDE 0.9% INJ 10 ML SYR IV PRN (12:30)
[2019-12-22] MEDS ORDERED: FLUBLOK(EGG FREE)(QUAD)INFLUENZA VACC 0.5ML SYRINGE 18YRS & OLDER IM ONE (13:00)
[2019-12-23] MEDS ORDERED: SODIUM CHLORIDE 0.9% INJ 10 ML SYR IV SCH (09:00)
--- NOTE | 2020-01-10 09:52 | RO ---
DATE OF OPERATION: 12/21/2019 PREOPERATIVE DIAGNOSIS: Incisional hernia. POSTOPERATIVE DIAGNOSIS: Incisional hernia. PROCEDURE: Incisional hernia repair with Ultrapro mesh. SURGEON: Silver Campuzano M.D. TELEVISION CABLE INSTALLER: DANIELE Roberto, (provided retraction, exposure, and assistance with abdominal wall closure). ESTIMATED BLOOD LOSS: Minimal. FLUIDS: Crystalloid. BRIEF PROCEDURE SUMMARY: The patient was brought to the operating room and was prepped and draped in the usual sterile fashion. The previous ostomy site is where the recurrence of the hernia occurred and at that site, the incision was made with a skin knife. Electrocautery was used to cut through dermis, underlying subcutaneous tissue, down to the hernia sac itself, which was followed down to the fascia itself. The fascia was followed circumferentially using a combination of blunt and sharp dissection, as well as some electrocautery on this area. Intraabdominally, I was able to mobilize the surrounding area quite nicely using some blunt dissection and sharp dissection. However, medially, after getting adequate margins, it was obvious that there was small bowel adhered to either mesh or adhesions on the rectus muscle. This area was not taken down given the tenacity of the adhesions and this was outside the area that I needed to close. In any case, the incision then was closed using [id number] interrupted sutures [id number], and then overlying this, an onlay of mesh of Ultrapro was placed against the very attenuated fascia in this area and then stapled in place with a secure strap. A Oc-Weinstein drain was left in the bed of the dissection and larry were used to close the skin incision over a two layered closure of 2-0 Vicryl and 3-0 Vicryl. A dry sterile dressing was applied. The patient was awakened, extubated, and brought to the recovery room awake, alert, hemodynamically stable. Sponge and needle counts were correct x2. MTDD
--- NOTE | 2020-01-18 09:26 | ECGEPIP ---
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
== END 2019-12-22 13:15 | disposition home or self-care (01) ==
LOC: M SDC 08:44 → M MSPAV 14:32 → M SDC 12-22 13:15
PROVIDERS: ATTEND Surgery
DX: K43.2 Incisional hernia without obstruction or gangrene (principal); J45.909 Unspecified asthma, uncomplicated; E78.00 Pure hypercholesterolemia, unspecified; E78.2 Mixed hyperlipidemia; E11.9 Type 2 diabetes mellitus without complications; Z79.51 Long term (current) use of inhaled steroids; F32.9 Major depressive disorder, single episode, unspecified; Z79.899 Other long term (current) drug therapy; Z91.018 Allergy to other foods; Z91.041 Radiographic dye allergy status; Z88.0 Allergy status to penicillin; Z88.1 Allergy status to other antibiotic agents; Z88.2 Allergy status to sulfonamides; Z88.8 Allergy status to other drugs, medicaments and biological substances; Z88.5 Allergy status to narcotic agent
CPT/HCPCS: 49560; 90471; 90682; 93005; 96374; C1781; C9290; J1170; J1335; J1642; J2405

== ENCOUNTER 2020-01-13 17:46 | Emergency (ER) | payer OTHER ==
[~2020-01-13] VITALS: Ht 170.2 cm; Wt 73.2 kg
[~2020-01-13 17:46] MED LIST changes: -ERTAPENEM SODIUM 1 GM in NS MINI-BAG PLUS 50 ML IV ONE; -LR 1,000 ML IV ONE
[2020-01-13] MEDS ORDERED: DICY10CA13 PO (18:00)
[2020-01-13] MEDS ORDERED: NS 1,000 ML IV ONE (18:45)
[2020-01-13 19:05] LABS: BASO % 0.6 % (0.0-1.0); EOS # 0.1 10^3/uL (0.0-0.5); HEMOGLOBIN 11.9 g/dl (12.0-15.5); LYMPH # 1.3 10^3/uL (1.5-5.0); LYMPH % 26.6 % (24.0-44.0); MEAN CORPUSCULAR HEMOGLOBIN 30.1 pg (27.0-33.0); MEAN CORPUSCULAR HGB CONC 31.3 g/dl (32.0-36.5); MEAN CORPUSCULAR VOLUME 96.2 fl (80.0-96.0); MONO # 0.4 10^3/uL (0.0-0.8); MONO % 7.4 % (0.0-5.0); NEUTROPHILS # 3.1 10^3/uL (1.5-8.5); PLATELET COUNT, AUTOMATED 137 10^3/uL (150-450); RED BLOOD COUNT 3.95 10^6/uL (4.00-5.40); WHITE BLOOD COUNT 4.9 10^3/uL (4.0-10.0)
--- NOTE | 2020-01-13 19:23 | REPVR ---
PROCEDURE INFORMATION: Exam: CT Abdomen And Pelvis Without Contrast Exam date and time: 01/13/2020 6:52 PM Age: 59 years old Clinical indication: Bloating; Prior surgery; Surgery date: 6+ months; Additional info: Stoma not producing stool, abd bloating/pain TECHNIQUE: Imaging protocol: Computed tomography of the abdomen and pelvis without contrast. Radiation optimization: All CT scans at this facility use at least one of these dose optimization techniques: automated exposure control; mA and/or kV adjustment per patient size (includes targeted exams where dose is matched to clinical indication); or iterative reconstruction. COMPARISON: CT ABD/PEL W/PO CONTRAST ONLY 10/20/2019 9:40 PM FINDINGS: Liver: 1.3 x 0.7 cm hypodensity in the anterior aspect of segment 4A of the left lobe of the liver. Finding not demonstrated previously and not characterized on this unenhanced single phase scan. Gallbladder and bile ducts: There has been a cholecystectomy. Pancreas: There is diffuse pancreatic atrophy. Spleen: Normal. No splenomegaly. Adrenals: Normal. No mass. Kidneys and ureters: Bilateral nonobstructive renal calculi. Stomach and bowel: Status post colectomy with Maribell pouch construction. Left lower quadrant ileostomy demonstrated with a small ostomy hernia demonstrated. No bowel obstruction. Appendix: No evidence of appendicitis. Intraperitoneal space: Unremarkable. No free air. No significant fluid collection. Vasculature: Unremarkable. No abdominal aortic aneurysm. Lymph nodes: Unremarkable. No enlarged lymph nodes. Urinary bladder: Unremarkable as visualized. Reproductive: There has been a hysterectomy. Bones/joints: Unremarkable. No acute fracture. Soft tissues: Inferior to the ileostomy site is focal thickening and inflammatory changes in the left rectus muscle extending through the subcutaneous soft tissues measuring 4.1 x 4 x 6.3 cm and containing small foci of gas. Findings suggest a possible abscess. Diastasis of the rectus sheath with a mid ventral abdominal wall hernia. IMPRESSION: 1. There has been a cholecystectomy. 2. 1.3 x 0.7 cm hypodensity in the anterior aspect of segment 4A of the left lobe of the liver. Finding not demonstrated previously and not characterized on this unenhanced single phase scan. 3. There is diffuse pancreatic atrophy. 4. Bilateral nonobstructive renal calculi. 5. Left lower quadrant ileostomy demonstrated with a small ostomy hernia demonstrated. No bowel obstruction demonstrated. 6. There has been a hysterectomy. 7. Inferior to the ileostomy site is focal thickening and inflammatory changes in the left rectus muscle extending through the subcutaneous soft tissues measuring 4.1 x 4 x 6.3 cm and containing small foci of gas. Findings suggest a possible abscess. Electronically signed by: Luis Eduardo Duong On 01/13/2020 19:23:15 PM
[2020-01-13 19:29] LABS: ALBUMIN 2.8 GM/DL (3.2-5.2); ALT/SGPT 27 U/L (12-78); BILIRUBIN,DIRECT < 0.1 MG/DL (0.0-0.2); BILIRUBIN,TOTAL 0.1 MG/DL (0.2-1.0); BLOOD UREA NITROGEN 9 MG/DL (7-18); CALCIUM LEVEL 9.1 MG/DL (8.5-10.1); CARBON DIOXIDE LEVEL 23 MEQ/L (21-32); CHLORIDE LEVEL 106 MEQ/L (98-107); CREATININE FOR GFR 0.62 MG/DL (0.55-1.30); GLOMERULAR FILTRATION RATE > 60.0 (>51); GLUCOSE, FASTING 307 MG/DL (70-100); LIPASE 111 U/L (73-393); POTASSIUM SERUM 3.8 MEQ/L (3.5-5.1); SODIUM LEVEL 140 MEQ/L (136-145); TOTAL PROTEIN 6.9 GM/DL (6.4-8.2)
[2020-01-13 20:22] VITALS: BP 136/71
== END 2020-01-13 20:34 | disposition home or self-care (01) ==
LOC: M ED 17:46
DX: R10.9 Unspecified abdominal pain (principal); R11.0 Nausea; Z93.2 Ileostomy status; N20.0 Calculus of kidney; R93.2 Abnormal findings on diagnostic imaging of liver and biliary tract; Z79.4 Long term (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; Z79.899 Other long term (current) drug therapy; Z88.0 Allergy status to penicillin; Z88.2 Allergy status to sulfonamides; Z88.8 Allergy status to other drugs, medicaments and biological substances; Z88.1 Allergy status to other antibiotic agents; Z88.5 Allergy status to narcotic agent; Z91.89 Other specified personal risk factors, not elsewhere classified; Z91.02 Food additives allergy status; Z91.041 Radiographic dye allergy status; Z91.018 Allergy to other foods
CPT/HCPCS: 74176; 80048; 80076; 81001; 83690; 85025; 96360; 99283; J1642

== ENCOUNTER 2020-01-14 13:46 | Outpatient (CLI) | payer OTHER ==
[~2020-01-14] VITALS: Ht 165.1 cm; Wt 69.8 kg
[2020-01-14 13:46] VITALS: BP 126/69
[~2020-01-14 13:46] MED LIST changes: +DICY10CA13 PO; +SODIUM CHLORIDE 0.9% INJ 10 ML SYR IV SCH
[2020-01-14 16:59] LABS: HEMOGLOBIN A1c 10.4 %
== END 2020-01-14 14:40 | disposition home or self-care (01) ==
LOC: M INFU 13:46
PROVIDERS: ATTEND Family Medicine
DX: E83.42 Hypomagnesemia (principal); E11.65 Type 2 diabetes mellitus with hyperglycemia
CPT/HCPCS: 36591; 83036; 83735; 96523; J1642

== ENCOUNTER → 2020-01-26 | Outpatient (CLI) | payer OTHER ==
[~2020-01-26] MED LIST changes: -SODIUM CHLORIDE 0.9% INJ 10 ML SYR IV SCH
--- NOTE | 2020-02-02 15:25 | ECWPNPC ---
PATIENT NAME: GLENN FELDER : 1960 GENDER: FEMALE VISIT DATE: 01/26/2020 DISCHARGE DATE: 01/26/20 1102 VISIT LOCKED DATE TIME: PHYSICIAN: NAVNEET BRAY RESOURCE: NAVNEET BRAY REASON FOR APPOINTMENT 1. ABDOMINAL PAIN HISTORY OF PRESENT ILLNESS DEPRESSION SCREENING: PHQ-2 (2015 EDITION) LITTLE INTEREST OR PLEASURE IN DOING THINGS?NOT AT ALL FEELING DOWN, DEPRESSED, OR HOPELESS?NOT AT ALL TOTAL SCORE0 HERE FOR FOLLOW-UP OF PERSISTENT NECK PAIN. NOT COMPLAINING OF NECK PAIN TODAY. COMPLAINING OF TWO-WEEK HISTORY OF SEVERE RIGHT SCALP PAIN ALONG INCISION AREA. HAD TUMOR REMOVED 25 YEARS AGO IN THAT REGION. DENIES INJURY. DESCRIBES PAIN CONSTANT ACHING. DESCRIBES EXTREME SENSITIVITY TO LIGHT TOUCH OVER THE INCISION. GENERAL: -. FALL RISK SCREENING: SCREENING :NO FALLS REPORTED IN THE LAST YEAR NONE PAIN SCREENING: PATIENT HAS A COMPLAINT OF ACUTE OR CHRONIC PAIN :YES LOCATION OF PAIN:HEAD NURVE PAIN ON RIGHT SIDE OF HEAD INTENSITY OF PAIN (SCALE OF 1 TO 10):8 WHAT DOES YOUR PAIN FEEL LIKE:ACHING, BURNING DURATION:CONTINOUS PAIN IS INCREASED BY:OTHERS CONSTANT PAIN LIGHT BOTHERS IT PAIN IS DECREASED BY:OTHERS NURSING NOTE: -. PAIN CENTER INTAKE QUESTIONS: DO YOU HAVE A HISTORY OF MRSA? :NO DO YOU TAKE A BLOOD THINNERS? :YES ASPIRIN 81MG DO YOU HAVE ANY BLEEDING DISORDERS? :YES RECTAL BLEEDING ANY NEW NUMBNESS OR WEAKNESS IN YOUR LEGS OR ARMS? :YES LEGS, LEGS AND KNEES GIVE OUT ANY PACEMAKER,DEFIBRILLATOR, OR DORSAL COLUMN STIMULATOR? :NO DO YOU HAVE ANY RASHES OR OPEN SORES? :NO ARE YOU ALLERGIC TO IV DYE? :YES ARE YOU DIABETIC? :YES ANY NEW PROBLEMS WITH YOUR MEDICATIONS? :NO HAVE YOU RECEIVED A VACCINE IN THE PAST 30 DAYS? :YES GOT FLU VAC 01/20/2020 DO YOU PLAN TO RECEIVE A VACCINE IN THE NEXT 21 DAYS? :NO DO YOU NEED ANY PRESCRIPTION? :NO DO YOU TAKE ANY IMMUNOSUPPRESSIVE MEDICATIONS? :NO IS THERE A CHANCE YOU COULD BE ? :NO ARE YOU BREAST FEEDING? :NO CURRENT MEDICATIONS TAKING IPRATROPIUM-ALBUTEROL 0.5-2.5 (3) MG/3ML SOLUTION 3 ML INHALATION EVERY 6 HRS PRN TAKING SIMETHICONE 80 MG TABLET CHEWABLE 2 TABLETS AFTER MEALS AND AT BEDTIME NEEDED ORALLY THREE TIMES A DAY NEEDED FOR ABDOMINAL PAIN AND DISTENTION TAKING AMITRIPTYLINE HCL 50 MG TABLET DIRECTED ORALLY 1 TAB IN AM AND 3 TABS AT BEDTIME TAKING PEDIALYTE BOTTLE SOLUTION 330 ML ORALLY THREE TIMES DAILY TAKING MAY SAVAGE BAGS CLEAR VELCRO CLOSER ([id number]) ICD:V55.3 CHANGE NEEDED (EDUARD) TAKING MAY HAVE SAVAGE WAFERS NEW IMAGE SKIN BARRIERS FLATING FLANGES ICD: V55.3 (94001 2 1/2 CHANGE NEEDED (EDUARD) TAKING BABY WIPES 1 MISCELLANEOUS DIRECTED TOPICALLY PRN DX:569.62 TAKING SYRINGE 2-3 ML 3 ML MISCELLANEOUS DX: R11.0 INTRAMUSCULARLY TID PRN TAKING NYSTATIN [id number] UNIT/GM POWDER APPLY TO AFFECTED AREA(S) AROUND STOMA 2 TIMES A DAY DIRECTED UNTIL HEALED TAKING ZOFRAN 4 MG/2ML SOLUTION 4 MG INJECTION BID AT LEAST 8H APART TAKING HOSPITAL BED USE DAILY DIRECTED DX: K91.2, G89.4, G90.522, N81.84 TAKING GLUCOMETER TESTING 4 TIMES A DAY AND NEEDED DX: , NOTES: MEDICAID #: [id number] TAKING TEST STRIPS - - DX: . FOUR TIMES DAILY NEEDED, NOTES: MEDICAID #: [id number] TAKING LANCETS MISC. - MISCELLANEOUS - DX: E11. FOUR TIMES DAILY NEEDED, NOTES: MEDICAID #: [id number] TAKING BENTYL 10 MG CAPSULE 1 CAPSULE ORALLY FOUR TIMES A DAY PRN ABDOMINAL CRAMPING TAKING TRIAMCINOLONE ACETONIDE 0.1 % CREAM APPLY A THIN LAYER TO RED AREAS ON FINGERS EXTERNALLY TWICE A DAY TAKING METOCLOPRAMIDE HCL 10 MG TABLET 1 TABLET BEFORE MEALS AND BEDTIME ORALLY THREE TIMES DAILY BEFORE MEALS TAKING DICYCLOMINE HCL 10 MG CAPSULE 1 CAPSULE ORALLY FOUR TIMES DAILY TAKING NEBULIZER COMPRESSOR 1 INH DX: J45.909 EVERY 4 HOURS NEEDED TAKING NEBULIZER/TUBING/MOUTHPIECE - KIT DIRECTED DX: J45.909 EVERY 4 HOURS NEEDED TAKING ALBUTEROL SULFATE HFA 108 (90 BASE) MCG/ACT AEROSOL SOLUTION 2 PUFFS NEEDED INHALATION EVERY 4 HRS PRN, NOTES: NONE RECENTLY TAKING SUCRALFATE 1 GM TABLET 1 TAB ORALLY TWICE A DAY TAKING LEVEMIR FLEX TOUCH 100 UNIT/ML SOLUTION 35 UNITS SUBCUTANEOUS IN THE MORNING TAKING PEN NEEDLES 5/16" DIRECTED SUBCUTANEOUSLY DAILY DX: E11.65 TAKING ALCOHOL PREP PAD 70 % PAD DIRECTED E11.9 TEST BLOOD SUGAR QID PRN TAKING AMMONIUM LACTATE 12 % CREAM 1 APPLICATION EXTERNALLY TWICE A DAY TO FEET TAKING ESTRADIOL 0.1 MG/GM CREAM 1 GRAM VAGINAL DAILY TAKING LACTULOSE 20 GM/30ML SOLUTION 15 ML ORALLY THREE TIMES DAILY TAKING DOXYCYCLINE MONOHYDRATE 100 MG TABLET 1 TABLET ORALLY TWICE A DAY NOT-TAKING HYDROMORPHONE HCL 4 MG TABLET 1 TABLET (4MG) ALTERNATING WITH2 TABS (8 MG) ORALLY EVERY 3 HOURS NEEDED MDD: 8 TABS MEDICATION LIST REVIEWED AND RECONCILED WITH THE PATIENT PAST MEDICAL HISTORY DM II WITH NEUROPATHY, HBA1C GOAL IS 8.0 FOR NOW B/C OF RISK OF HYPOGLYCEMIA, CONSIDER LOWER IF CONSISTENTLY ACHIEVED ASTHMA HYPERLIPIDEMIA GERD NEPHROLITHIASIS 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 ALLERGIC RHINITIS CHRONIC MAXILLARY SINUSITIS CHRONIC HEADACHES (PAIN MANAGEMENT) CHRONIC PAIN SYNDROME/RSD (PAIN MANAGEMENT) PERSONAL HISTORY OF VENOUS THROMBOSIS AND EMBOLISM (RESOLVED 12/19/2009) ABDOMINAL HERNIA FLEXURAL ECZEMA ALLERGIES IODINE: NERVES, TIGHT MUSCLES - SIDE EFFECTS GABAPENTIN: NERVOUS SYSTEM,SHAKEY - SIDE EFFECTS GABITRIL: NERVOUS - SIDE EFFECTS KETOROLAC TROMETHAMINE: VOMITING - SIDE EFFECTS MEPERIDINE HCL: OUT OF BODY EXPERIENCE - SIDE EFFECTS MORPHINE SULFATE: SEVERE H/A WITH BIG DOSE - SIDE EFFECTS PROMETHAZINE HCL: OUT OF BODY EXPERIENCE - SIDE EFFECTS TRAMADOL: SHAKES - SIDE EFFECTS OXYCODONE: VOMITING,HIVES - ALLERGY PENICILLIN (FOR ALLERGIES USE ONLY): HIVES - ALLERGY FENTANYL: NERVOUS - SIDE EFFECTS DROPERIDOL: OUT OF BODY - SIDE EFFECTS CODEINE SULFATE: OUT OF BODY EXPERIENCE - SIDE EFFECTS PHENOTHIAZINES: NERVOUS SYSTEM - SIDE EFFECTS QUINOLONES- CIPRO,TEQUIN: HIVES - ALLERGY RED FOOD DYE: RASH - ALLERGY LIDODERM (LICOCANINE): HEART RACES - SIDE EFFECTS SULFA: HIVES - ALLERGY ASPIRIN: HIVES - ALLERGY ATIVAN: HALLUCINATIONS - SIDE EFFECTS AZITHROMYCIN: HIVES - ALLERGY BACLOFEN: AFFECTED NERVOUS SYT - SIDE EFFECTS LYRICA: SHAKES, EVERYTHING IS BLACK - SIDE EFFECTS VICODIN: CONFUSION - SIDE EFFECTS MACROBID: HIVES, BLURRED VISION - ALLERGY READI-CAT: HIVES - ALLERGY ALBUTEROL SULFATE: COUGH - ALLERGY GASTROGRAFIN: ONLY 1 BOTTLE PER TEST DAY (CAN NOT TOLERATE ANY MORE THAN 1 BOTTLE) - CONTRAINDICATION LATEX (FOR ALLERGY USE ONLY): DIFFICULTY - ALLERGY TIZANIDINE HCL: HIVES - ALLERGY SURGICAL HISTORY NO PERSONAL HX OF SEVERE REACTION TO ANESTHESIA, HER BROTHER HAS "HAD HIS THROAT CLOSE OFF TWO DIFFERENT TIMES" WITH GENERAL ANESTHESIA SCALP TUMOR 1984 LUMPECTOMIES - REPORTED BENIGN BILATERAL 16 AND 21 YO TOTAL HYSTERECTOMY-DUE TO OVARIAN CYSTS/MASS 21 YO BILAT SYMPATHECTOMY 1987 AV FISTULA REPAIR L LEG 1988 CHOLECYSTECTOMY LATE SBO 2001 ABDOMINAL HERNIA REPAIR 2004 VENTRAL HERNIA REPAIR 2009 DORSAL COLUMN STIMULATOR TAKEN OUT AND NEW ONE IMPLANTED 02/21 SMALL PORTION OF SMALL BOWEL RESECTED AND VENTRAL HERNIA REPAIRS (GOESSLIN) 06/2010 ILEOSTOMY-EDUARD 07/28/12 CYST REMOVED RIGHT NOSTRIL- DR RAJPUT. 09/17/12 REPAIR TWO HERNIAS AND REPAIR OF STOMA 03/26 HERNIA REPAIR X2 08/31/13 PARASTOMAL HERNIA REPAIR- EDUARD 06/26 HERNIA AND STOMA REPAIR-EDUARD 06/11 PERASTOMAL HERNIA REPAIR, WITH A SMALL BOWEL OBSTRUCTION 03/2017 INFUSAPORT PLACMENT ([facility]) 08/2017 HERNIA REPAIR X4 STOMA REVERSAL 10/2017 BATTERY REPLACEMENT FOR STIMULATOR 02/2018 FAMILY HISTORY FATHER: ALIVE, CANCER, DIAGNOSED WITH UNSPECIFIED CEREBRAL ARTERY OCCLUSION WITH CEREBRAL INFARCTION, OTHER MALIGNANT NEOPLASM OF UNSPECIFIED SITE MOTHER: , OF MYELODYSPLASTIC SYNDROME; WAS ALSO KNOWN TO HAVE CAD, OTHER MALIGNANT NEOPLASM OF UNSPECIFIED SITE SIBLINGS: ALIVE 1 BROTHER(S) - HEALTHY. 2 BROTHERS DM, KIDNEY FAILURE. SOCIAL HISTORY GENERAL: TOBACCO USE ARE YOU A:NONSMOKER NEVER SMOKER LATEX QUESTIONNAIRE LATEX ALLERGY : HAVE YOU EVER DEVELOPED ANY TYPE OF REACTION AFTER HANDLING LATEX PRODUCTS SUCH RUBBER GLOVES, CONDOMS, DIAPHRAGMS, BALLOONS, SOCKS, OR UNDERWEAR?YES SEE ALLERGY LIST - PLEASE INDICATE :OTHER (DOCUMENT IN NOTES) LATEX ALLERGY : HAVE YOU EVER DEVELOPED ANY TYPE OF REACTION DURING OR AFTER DENTAL APPOINTMENT, VAGINAL/RECTAL EXAMINATION, SURGICAL PROCEDURE, OR ANY OTHER EXPOSURE?YES - PLEASE INDICATE :DENTAL PROCEDURE, VAGINAL EXAM, RECTAL EXAM, SURGICAL PROCEDURE, OTHER (DOCUMENT IN NOTES) LATEX RISK : HAVE YOU EVER HAD ANY DIFFICULTY BREATHING OR HIVES AFTER EATING OR HANDLING ANY FRUITS, OR VEGETABLES; SUCH KIWI, BANANAS, STONE FRUITS, OR CHESTNUTSYES - PLEASE INDICATE : BANANAS, STONE FRUITS LATEX RISK : DO YOU HAVE A PREVIOUS PERSONAL HISTORY OF MORE THAN NINE SURGERIES, SPINA BIFIDA, OR REPEATED CATHERIZATIONS? YES - PLEASE INDICATE : > 9 SURGERIES LATEX RISK : ARE YOU FREQUENTLY EXPOSED TO LATEX PRODUCTS IN YOUR OCCUPATION?NO DATE ASKED : 01/26/2020 ALCOHOL SCREENING DID YOU HAVE A DRINK CONTAINING ALCOHOL IN THE PAST YEAR?NO POINTS0 INTERPRETATIONNEGATIVE RECREATIONAL DRUG USE DRUG USE?NO CAFFEINE CAFFEINE USE?NO SEXUAL HX HAD SEX IN THE LAST 12 MONTHS (VAGINAL, ORAL, OR ANAL)?NO HAVE YOU EVER HAD AN STD?NO HIV / HEP-C SCREENING HIV TEST OFFERED TO PATIENT:YES DATE OFFERED:07/18/2016 TEST ACCEPTED:NO HEP-C TEST OFFERED TO PATIENT:YES DATE OFFERED:07/18/2016 REASON:PATIENT DECLINED TEST ACCEPTED:NO REASON:PATIENT DECLINED JUDAISM [id number] [employer] L[employer]UAGES SPOKEN:SIERRA LEONEAN EDUCATION LEVEL OF EDUCATION:[employer] 8TH GRADE LEARNING BARRIERS / SPECIAL NEEDS CHANGE FROM LAST VISIT?NO BARRIERS TO LEARNING?NO HEARING IMPAIRED?NO VISION IMPAIRED?YES COGNITIVELY IMPAIRED?NO :CORRECTIVE LENSES READINESS TO LEARN?YES LEARNING PREFERENCES?NO LEARNING CAPABILITIES PRESENT?YES EMOTIONAL BARRIERS?NO SPECIAL DEVICES?YES :CANE, WHEELCHAIR PEELED POTATO INSPECTOR NEEDED?NO DOMESTIC VIOLENCE DO YOU FEEL SAFE IN YOUR ENVIRONMENT?YES OCCUPATION: DISABLED. DIET: NO CONCENTRATED SWEETS., CARBOHYDRATE CONTROLLED. EXERCISE: NO REGULAR EXERCISE. MARITAL STATUS: SINGLE. OTHERS AT HOME: NONE. PAIN CLINIC PFS, CLERGY, PUBLIC HEALTH REFERRALS PFS REFERRAL NEEDED?NO CLERGY REFERRAL NEEDED?NO PUBLIC HEALTH REFERRAL NEEDED?NO HAS THE PATIENT BEEN EDUCATED REGARDING HIS/HER PLAN OF CARE?YES HAS THE PATIENT BEEN EDUCATED REGARDING PAIN, THE RISK FOR PAIN, THE IMPORTANCE OF EFFECTIVE PAIN MANAGEMENT, AND THE PAIN ASSESSMENT PROCESS?YES ADVANCE DIRECTIVE ADVANCE DIRECTIVE DISCUSSED WITH PATIENT:YES STATES SHE HAS HCP - BROTHER (LUCAS); COPY PLACED IN RECORDS, HE IS ALSO POA. SHE ALSO HAS MOLST FORM THAT IS ON FILE HERE HOSPITALIZATION/MAJOR DIAGNOSTIC PROCEDURE [facility]- SMALL BOWEL OBSTRUCTION, WAS IN HOSPITAL 11 DAYS 09/2015 [facility]- SMALL BOWEL OBSTRUCTION, WAS IN HOSPITAL IN 5 DAYS 03/2016 [facility]- SMALL BOWEL OBSTRUCTION 04/12/16-04/17/16 [facility]- SMALL BOWEL OBSTRUCTION 06/2016 [facility]- SMALL BOWEL OBSTRUCTION 03/17/17-04/18/17 [facility] - SMALL BOWEL OBSTRUCTION, PNEUMONIA, PSEUDOGOUT 11/2018 [facility] - SMALL BOWEL OBSTRUCTION 02/2019 [facility]-SHORT GUT SYNDROME 06/29/19 REVIEW OF SYSTEMS CONSTITUTIONAL: ANY RECENT FEVER NO . CHILLS NO . WEIGHT CHANGE OF UNKNOWN REASONS NO . GASTROENTEROLOGY: NEW UNEXPLAINABLE CHANGES IN BOWEL CONTROL NO . CONSTIPATION NO . GENITOURINARY: ANY NEW CHANGE IN BLADDER CONTROL? NO . NEUROLOGY: NEW ONSET DIZZINESS OR NEUROLOGICAL CHANGES NOT MENTIONED NO . NEW NUMBNESS OR PAIN PATTERNS NOT MENTIONED AND PERTINENT TO TODAY'S VISIT NO . CARDIOLOGY: NEW CHEST PRESSURE NO . NEW CHEST PAIN NO . RESPIRATORY: UNEXPLAINABLE COUGH NO . NEW SHORTNESS OF BREATH NO . HERNIA REPAIR AND CYST REMOVED ABDOMEN 01/02/2020REPORTING CC LOSING OUT OF RECTUM. DR. ELKINS WILL BE EXAMINING THAT AREA NEXT MONTH. VITAL SIGNS WT 172.6 LBS, HT 67 IN, BMI 27.03 INDEX, BP 147/68 MM HG, HR 99 /MIN, RR 18 /MIN, TEMP 97.0 F, OXYGEN SAT % 96%, SAFE IN ENV? (Y/N) YES, NA INITIALS SC 10:29, REVIEWED BY: DENISE. EXAMINATION GENERAL EXAMINATION: GENERALNO ACUTE DISTRESS, WELL NOURISHED AND HYDRATED. PSYCHAPPROPRIATE MOOD AND AFFECT . HEENT:1 INCH WELL-HEALED SURGICAL SCAR RIGHT OCCIPITAL-TENDER TO EXTREME LIGHT TOUCH NO ERYTHEMA . NECK:NO LYMPHADENOPATHY, SUPPLE, . LUNGS:CLEAR TO AUSCULTATION BILATERALLY, NO WHEEZES, RHONCHI, RALES. HEART:NO MURMURS, REGULAR RATE AND RHYTHM. ASSESSMENTS OCCIPITAL PAIN - R51.9 (PRIMARY) TREATMENT OCCIPITAL PAIN NOTES: ADVISED TO HAVE ACUTE RIGHT OCCIPITAL INCISIONAL PAIN EVALUATED BY DR. BRAN. FOLLOW-UP IS SCHEDULED IN 2 MONTHS. PROCEDURE CODES FA211 ESTABILISHED PATIENT [facility] CHARGE DISPOSITION & COMMUNICATION FOLLOW UP 2 MONTHS (REASON: RIGHT OCCIPITAL PAIN) ELECTRONICALLY SIGNED BY DANIELE MCKEON ON 02/02/2020 AT 02:34 PM EDT DISCLAIMER : THIS IS A VISIT SUMMARY EXTRACTED FROM THE [facility] [employer] [facility] CHART. IT IS NOT A COPY OF THE [facility] [employer] [facility] PROGRESS NOTE. MARLYN
== END ==
LOC: M PAIN 09:30
PROVIDERS: ATTEND Nurse Practitioner Family
DX: R51.9 Headache, unspecified (principal); E11.40 Type 2 diabetes mellitus with diabetic neuropathy, unspecified; J45.909 Unspecified asthma, uncomplicated; E78.5 Hyperlipidemia, unspecified; K21.9 Gastro-esophageal reflux disease without esophagitis; J32.0 Chronic maxillary sinusitis; G89.4 Chronic pain syndrome; Z88.0 Allergy status to penicillin; Z88.5 Allergy status to narcotic agent; Z88.1 Allergy status to other antibiotic agents; Z88.8 Allergy status to other drugs, medicaments and biological substances; Z93.3 Colostomy status

== ENCOUNTER → 2020-02-12 | Outpatient (CLI) | payer OTHER | LOC: M LABSMTC 09:21 | PROVIDERS: ATTEND Anesthesiology | DX: Z01.818 Encounter for other preprocedural examination (principal); Z20.828 Contact with and (suspected) exposure to other viral communicable diseases | CPT/HCPCS: C9803; U0003 ==

== ENCOUNTER 2020-02-14 13:48 | Outpatient (CLI) | payer OTHER ==
[~2020-02-14] VITALS: Ht 170.2 cm; Wt 80.0 kg
[~2020-02-14 13:48] MED LIST changes: +SODIUM CHLORIDE 0.9% INJ 10 ML SYR IV SCH
[2020-02-14 14:00] VITALS: BP 123/82
== END 2020-02-14 15:00 | disposition home or self-care (01) ==
LOC: M INFU 13:48
PROVIDERS: ATTEND Family Medicine
DX: E83.42 Hypomagnesemia (principal); E11.65 Type 2 diabetes mellitus with hyperglycemia
CPT/HCPCS: 96523; J1642

== ENCOUNTER → 2020-02-17 | Day surgery (SDC) | payer OTHER ==
[~2020-02-17] VITALS: Ht 170.2 cm; Wt 73.0 kg
[~2020-02-17] MED LIST changes: +LIDOCAINE 2% 100MG/5ML SDV (FOR ANES.) As Ordered ONE; +NS 1,000 ML IV ONE; -SODIUM CHLORIDE 0.9% INJ 10 ML SYR IV SCH; +propofoL 200 MG/20 ML VIAL As Ordered ONE
--- NOTE | 2020-02-17 12:21 | ROOR ---
Patient Name: Rich Olson Procedure Date: 02/17/2020 12:09 PM Date of : 1960 Age: 59 Room: [facility] Gender: Female Note Status: Finalized Procedure: Flexible Sigmoidoscopy Indications: Rectal hemorrhage Providers: Silver Campuzano Jr, MD Referring MD: CARMEN BRAN MD Requesting Provider: Medicines: Propofol per Anesthesia Complications: No immediate complications. Procedure: Pre-Anesthesia Assessment: - Prior to the procedure, a History and Physical was performed, and patient medications and allergies were reviewed. The patient is competent. The risks and benefits of the procedure and the sedation options and risks were discussed with the patient. All questions were answered and informed consent was obtained. Patient identification and proposed procedure were verified by the physician and the nurse in the pre-procedure area and in the procedure room. Mental Status Examination: alert and oriented. Airway Examination: normal oropharyngeal airway and neck mobility. Respiratory Examination: clear to auscultation. CV Examination: normal. ASA Grade Assessment: II - A patient with mild systemic disease. After reviewing the risks and benefits, the patient was deemed in satisfactory condition to undergo the procedure. The anesthesia plan was to use moderate sedation / analgesia (conscious sedation). Immediately prior to administration of medications, the patient was re-assessed for adequacy to receive sedatives. The heart rate, respiratory rate, oxygen saturations, blood pressure, adequacy of pulmonary ventilation, and response to care were monitored throughout the procedure. The physical status of the patient was re-assessed after the procedure. The Endoscope was introduced through the anus and advanced to the rectosigmoid junction. The flexible sigmoidoscopy was accomplished without difficulty. The patient tolerated the procedure well. The quality of the bowel preparation was adequate. Findings: The proximal rectum, mid rectum and recto-sigmoid colon appeared normal. An area of moderately congested mucosa was found in the distal rectum. Impression: - The proximal rectum, mid rectum and recto-sigmoid colon are normal. - Congested mucosa in the distal rectum. - No specimens collected. Recommendation: - Discharge patient to home (ambulatory). - Return to my office in 4 weeks. Silver Campuzano MD Silver Campuzano Jr, MD 02/17/2020 12:21:18 PM Electronically signed by Silver Campuzano Jr, MD Number of Addenda: 0 Note Initiated On: 02/17/2020 12:09 PM Estimated Blood Loss: Estimated blood loss: none.
[2020-02-17 12:45] VITALS: BP 142/90
== END | disposition home or self-care (01) ==
LOC: M OPP 10:03
PROVIDERS: ATTEND Surgery
DX: K62.89 Other specified diseases of anus and rectum (principal); K62.5 Hemorrhage of anus and rectum; Z79.4 Long term (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; Z79.899 Other long term (current) drug therapy; Z88.4 Allergy status to anesthetic agent; Z88.6 Allergy status to analgesic agent; Z88.5 Allergy status to narcotic agent; Z88.8 Allergy status to other drugs, medicaments and biological substances; Z91.048 Other nonmedicinal substance allergy status; Z91.041 Radiographic dye allergy status

== ENCOUNTER → 2020-02-28 | Outpatient (CLI) | payer OTHER ==
[~2020-02-28] MED LIST changes: -LIDOCAINE 2% 100MG/5ML SDV (FOR ANES.) As Ordered ONE; -NS 1,000 ML IV ONE; -propofoL 200 MG/20 ML VIAL As Ordered ONE
== END ==
LOC: M PT 10:38
PROVIDERS: ATTEND Family Medicine
DX: R29.6 Repeated falls (principal)

== ENCOUNTER → 2020-03-06 | Outpatient (CLI) | payer OTHER ==
--- NOTE | 2020-03-06 11:30 | REPMRS ---
Patient History The patient states she had a clinical breast exam in 01/31 Patient is postmenopausal and is nulliparous. Family history of breast cancer at age 50 or over in maternal aunt, breast cancer at age 50 or over in maternal aunt, breast cancer at age 50 or over in maternal aunt, breast cancer at age 50 or over in maternal aunt, breast cancer at age 50 or over in maternal aunt, breast cancer at age 61 in paternal aunt. Benign radio exam breast specimen of the right breast, February 03, 2014. Benign stereotatic loc for ea lesion of the right breast, February 03, 2014. 3D TOMOSYNTHESIS WAS PERFORMED. [facility] lifetime risk for breast cancer is 8.2%. [facility] breast density c. Digital Woman Screen Mammo: March 06, 2020 - Exam #: [id number] Bilateral CC and MLO view(s) were taken. Technologist: Marianne Tovar, Technologist Prior study comparison: January 01, 2018, bilateral digital mammo screening bilat, performed at [facility]. December 30, 2016, bilateral digital mammo screening bilat, performed at [facility]. FINDINGS: The breast tissue is heterogeneously dense. This may lower the sensitivity of mammography. There has been no change in the appearance of the mammogram from the prior studies. There is a moderate amount of residual fibroglandular tissue which is fairly symmetric. There is no interval development of dominant mass, areas of architectural distortion, or clustered microcalcification typical of malignancy. Assessment: BI-RADS/ACR category 1 mammogram. Negative Mammogram. Recommendation Routine screening mammogram in 1 year (for women over age 40). This mammogram was interpreted with the aid of an FDA-approved computer-aided dectection system. Electronically Signed By: Geovanni Camejo MD 03/06/20 [id number]
== END ==
LOC: M WHC 10:09
PROVIDERS: ATTEND Family Medicine
DX: Z12.31 Encounter for screening mammogram for malignant neoplasm of breast (principal)

== ENCOUNTER 2020-03-14 13:56 | Outpatient (CLI) | payer OTHER ==
[~2020-03-14] VITALS: Ht 167.6 cm; Wt 73.0 kg
[~2020-03-14 13:56] MED LIST changes: +SODIUM CHLORIDE 0.9% INJ 10 ML SYR IV SCH
[2020-03-14 14:11] VITALS: BP 148/74
== END 2020-03-14 15:00 | disposition home or self-care (01) ==
LOC: M INFU 13:56
PROVIDERS: ATTEND Family Medicine
DX: E83.42 Hypomagnesemia (principal); Z88.1 Allergy status to other antibiotic agents; Z88.2 Allergy status to sulfonamides; Z88.6 Allergy status to analgesic agent; Z88.8 Allergy status to other drugs, medicaments and biological substances; Z91.041 Radiographic dye allergy status
CPT/HCPCS: 96523; J1642

== ENCOUNTER 2020-04-17 13:43 | Outpatient (CLI) | payer OTHER ==
[~2020-04-17] VITALS: Ht 167.6 cm; Wt 73.0 kg
[2020-04-17 14:10] VITALS: BP 119/62
[2020-04-17 16:55] LABS: HEMOGLOBIN A1c 10.3 %
== END 2020-04-17 14:30 | disposition home or self-care (01) ==
LOC: M INFU 13:43
PROVIDERS: ATTEND Family Medicine
DX: E83.42 Hypomagnesemia (principal); E11.65 Type 2 diabetes mellitus with hyperglycemia; Z88.0 Allergy status to penicillin; Z88.1 Allergy status to other antibiotic agents; Z88.2 Allergy status to sulfonamides; Z88.6 Allergy status to analgesic agent; Z88.5 Allergy status to narcotic agent; Z88.8 Allergy status to other drugs, medicaments and biological substances
CPT/HCPCS: 36591; 83036; 83735; J1642

== ENCOUNTER → 2020-04-28 | Outpatient (CLI) | payer OTHER ==
[~2020-04-28] MED LIST changes: -SODIUM CHLORIDE 0.9% INJ 10 ML SYR IV SCH
--- NOTE | 2020-04-28 11:20 | REPVR ---
PROCEDURE INFORMATION: Exam: CT Head Without Contrast Exam date and time: 04/28/2020 10:47 AM Age: 59 years old Clinical indication: Injury or trauma; Fall; Blunt trauma (contusions or hematomas) TECHNIQUE: Imaging protocol: Computed tomography of the head without contrast. Radiation optimization: All CT scans at this facility use at least one of these dose optimization techniques: automated exposure control; mA and/or kV adjustment per patient size (includes targeted exams where dose is matched to clinical indication); or iterative reconstruction. COMPARISON: CT Head without contrast 08/11/2019 12:17 PM FINDINGS: Brain: There is no acute intracranial hemorrhage or mass effect. Mild diffuse volume loss is within the range of normal for patient age. There are small vessel ischemic changes within the periventricular and subcortical white matter, but the normal wolfe/white matter delineation is maintained. Cerebral ventricles: No ventriculomegaly. Bones/joints: Unremarkable. No acute fracture. Paranasal sinuses: Visualized sinuses are unremarkable. No fluid levels. Mastoid air cells: Visualized mastoid air cells are well aerated. Soft tissues: Unremarkable. IMPRESSION: No acute hemorrhage or calvarial fracture. Electronically signed by: Pricila Barahona On 04/28/2020 11:19:28 AM
--- NOTE | 2020-04-28 11:23 | REPVR ---
PROCEDURE INFORMATION: Exam: CT Maxillofacial Without Contrast Exam date and time: 04/28/2020 10:47 AM Age: 59 years old Clinical indication: Injury or trauma; Fall; Blunt trauma (contusions or hematomas); Forehead TECHNIQUE: Imaging protocol: Computed tomography images of the face without contrast. Radiation optimization: All CT scans at this facility use at least one of these dose optimization techniques: automated exposure control; mA and/or kV adjustment per patient size (includes targeted exams where dose is matched to clinical indication); or iterative reconstruction. COMPARISON: No relevant prior studies available. FINDINGS: Orbital cavity: Orbits are normal. Globes are unremarkable. Bones/joints: No acute fracture. Paranasal sinuses: Normal. No air-fluid levels. Soft tissues: Unremarkable. IMPRESSION: No acute findings. Electronically signed by: Pricila Barahona On 04/28/2020 11:23:40 AM
--- NOTE | 2020-04-30 07:59 | REP ---
INDICATION: HEADACHE, UNSPECIFIED COMPARISON: None. TECHNIQUE: AP, Tammy's, Gonzalez, and bilateral lateral views of the skull. . FINDINGS: Calvarium and visualized facial bones are intact. No obvious acute fracture. Visualized sinuses are well aerated and clear. No subcutaneous emphysema or foreign body. IMPRESSION: No obvious skull injury by radiographic evaluation. <Electronically signed by Darius Roth > 04/30/20 [id number]
== END ==
LOC: M RAD 09:58
PROVIDERS: ATTEND Family Medicine
DX: R51.9 Headache, unspecified (principal)

== ENCOUNTER 2020-05-15 13:42 | Outpatient (CLI) | payer OTHER ==
[~2020-05-15] VITALS: Ht 167.6 cm; Wt 73.0 kg
[~2020-05-15 13:42] MED LIST changes: +SODIUM CHLORIDE 0.9% INJ 10 ML SYR IV SCH
[2020-05-15 13:45] VITALS: BP 128/68
== END 2020-05-15 14:15 | disposition home or self-care (01) ==
LOC: M INFU 13:42
PROVIDERS: ATTEND Family Medicine
DX: E83.42 Hypomagnesemia (principal)
CPT/HCPCS: 96523; J1642

== ENCOUNTER 2020-05-21 09:46 | Emergency (ER) | payer OTHER ==
[~2020-05-21] VITALS: Ht 170.2 cm; Wt 72.7 kg
[~2020-05-21 09:46] MED LIST changes: +SIME80CH5 PO; -SIME80TA PO; -SODIUM CHLORIDE 0.9% INJ 10 ML SYR IV SCH
[2020-05-21] MEDS ORDERED: VICT18IN SQ (09:55)
[2020-05-21 10:51] LABS: BASO % 0.3 % (0.0-1.0); EOS # 0.1 10^3/uL (0.0-0.5); EOS % 1.2 % (0.0-3.0); HEMATOCRIT 40.6 % (36.0-47.0); LYMPH # 1.4 10^3/uL (1.5-5.0); LYMPH % 23.2 % (24.0-44.0); MEAN CORPUSCULAR HEMOGLOBIN 31.8 pg (27.0-33.0); MEAN CORPUSCULAR VOLUME 99.3 fl (80.0-96.0); MONO # 0.6 10^3/uL (0.0-0.8); MONO % 9.3 % (0.0-5.0); NEUTROPHILS # 3.9 10^3/uL (1.5-8.5); NEUTROPHILS % 65.7 % (36.0-66.0); PLATELET COUNT, AUTOMATED 211 10^3/uL (150-450); RED BLOOD COUNT 4.09 10^6/uL (4.00-5.40)
[2020-05-21 11:16] LABS: ALBUMIN 3.7 GM/DL (3.2-5.2); ALT/SGPT 38 U/L (12-78); BILIRUBIN,DIRECT < 0.1 MG/DL (0.0-0.2); BILIRUBIN,TOTAL 0.2 MG/DL (0.2-1.0); BLOOD UREA NITROGEN 14 MG/DL (7-18); CARBON DIOXIDE LEVEL 25 MEQ/L (21-32); CHLORIDE LEVEL 99 MEQ/L (98-107); CREATININE FOR GFR 0.67 MG/DL (0.55-1.30); GLOMERULAR FILTRATION RATE > 60.0 (>51); GLUCOSE, FASTING 248 MG/DL (70-100); LIPASE 89 U/L (73-393); POTASSIUM SERUM 4.5 MEQ/L (3.5-5.1); SODIUM LEVEL 135 MEQ/L (136-145); TOTAL PROTEIN 8.5 GM/DL (6.4-8.2)
[2020-05-21] MEDS ORDERED: NS 1,000 ML IV ONE ×2 (11:30→12:15)
[2020-05-21] MEDS ORDERED: ACETAMINOPHEN 500 MG TAB PO ONE (11:30)
--- NOTE | 2020-05-21 11:38 | REP ---
INDICATION: L abd pain, h/o hernias, reported decreased stool output COMPARISON: 01/13/2020. TECHNIQUE: CT Scan of the abdomen and pelvis was performed without intravenous contrast. Sagittal and coronal reconstruction images performed. FINDINGS: Lung bases: Unremarkable. Liver: Liver is enlarged with a length of approximately 26 cm. There is diffuse fatty infiltration of the liver. Gallbladder: Prior cholecystectomy. Spleen: Grossly unremarkable.. Adrenals: Normal. Pancreas: Grossly unremarkable.. Kidneys: No hydronephrosis or nephrolithiasis. Ureters demonstrate no dilatation or calculus. Small and large bowel: Left abdominal ostomy appears unremarkable. There is no bowel wall thickening or obstruction. Prior colectomy. There is no anterior abdominal wall hernia. Free fluid: None. Abdominal aorta: No aneurysm. Adenopathy: None. Osseous structures: Unremarkable. Pelvis: No mass. No bladder calculus seen. Prior hysterectomy. Dorsal column stimulator device is again noted. Multiple metallic clips are seen along the anterior abdominal wall and throughout the abdomen and pelvis. IMPRESSION: No acute findings. <Electronically signed by Geovanni Camejo > 05/21/20 [id number]
[2020-05-21] MEDS ORDERED: KETOROLAC 30 MG/ML 1ML VIAL IV ONE (12:15)
[2020-05-21] MEDS ORDERED: FOSFOMYCIN TROMETHAMINE 3 GM POWDER PACKET (MONUROL) PO ONE (15:15)
[2020-05-21 15:17] VITALS: BP 121/63
== END 2020-05-21 15:33 | disposition home or self-care (01) ==
LOC: M ED 09:46
DX: N39.0 Urinary tract infection, site not specified (principal); R10.9 Unspecified abdominal pain; E11.9 Type 2 diabetes mellitus without complications; E78.5 Hyperlipidemia, unspecified; E66.9 Obesity, unspecified; R51.9 Headache, unspecified; R42 Dizziness and giddiness; F32.9 Major depressive disorder, single episode, unspecified; Z86.718 Personal history of other venous thrombosis and embolism; Z79.4 Long term (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; Z79.899 Other long term (current) drug therapy; Z91.041 Radiographic dye allergy status; Z91.018 Allergy to other foods; Z88.0 Allergy status to penicillin; Z88.2 Allergy status to sulfonamides; Z91.89 Other specified personal risk factors, not elsewhere classified; Z88.8 Allergy status to other drugs, medicaments and biological substances; Z88.1 Allergy status to other antibiotic agents; Z88.5 Allergy status to narcotic agent
CPT/HCPCS: 36415; 74176; 80048; 80076; 81001; 83605; 83690; 85025; 87077; 87186; 87507; 96361; 96374; 99284; J1885

== ENCOUNTER → 2020-05-25 | Outpatient (CLI) | payer OTHER ==
[~2020-05-25] MED LIST changes: +VICT18IN SQ
--- NOTE | 2020-05-31 06:29 | ECWPNPC ---
PATIENT NAME: GLENN FELDER : 1960 GENDER: FEMALE VISIT DATE: 05/25/2020 DISCHARGE DATE: 05/25/20 0000 VISIT LOCKED DATE TIME: PHYSICIAN: NAVNEET BRAY RESOURCE: NAVNEET BRAY REASON FOR APPOINTMENT 1. OCCIPITAL NEUALGIA HISTORY OF PRESENT ILLNESS GENERAL: HERE FOR FOLLOW-UP OF PERSISTENT ABDOMINAL AND HEAD PAIN. 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 FOLLOWING WITH DR. CASTRO/OPHTHALMOLOGY. ALSO IS SCHEDULED FOR ABDOMINAL SURGERY IN [place] IN THE NEAR FUTURE. STATES SHE HAS LOST VISION ON HER RIGHT SIDE. CHIEF AREA OF PAIN IS RIGHT SCALP/OCCIPITAL PAIN. - -. FALL RISK SCREENING: SCREENING :NO FALLS REPORTED IN THE LAST YEAR PAIN SCREENING: PATIENT HAS A COMPLAINT OF ACUTE OR CHRONIC PAIN :YES LOCATION OF PAIN:HEAD, NECK INTENSITY OF PAIN (SCALE OF 1 TO 10):10 WHAT DOES YOUR PAIN FEEL LIKE:ACHING, BURNING, THROBBING, SHOOTING DURATION:CONTINOUS, CONSTANT, ALL DAY PAIN IS INCREASED BY:ACTIVITIES PAIN IS DECREASED BY:OTHERS " NOTHING RIGHT NOW " NURSING NOTE: -. PAIN CENTER INTAKE QUESTIONS: DO YOU HAVE A HISTORY OF MRSA? :NO DO YOU TAKE A BLOOD THINNERS? :NO DO YOU HAVE ANY BLEEDING DISORDERS? :NO ANY NEW NUMBNESS OR WEAKNESS IN YOUR LEGS OR ARMS? :NO ANY PACEMAKER,DEFIBRILLATOR, OR DORSAL COLUMN STIMULATOR? :YES DORSAL COLUMIN STIMULATER DO YOU HAVE ANY RASHES OR OPEN SORES? :NO ARE YOU ALLERGIC TO IV DYE? :YES ARE YOU DIABETIC? :YES ANY NEW PROBLEMS WITH YOUR MEDICATIONS? :NO HAVE YOU RECEIVED A VACCINE IN THE PAST 30 DAYS? :NO DO YOU PLAN TO RECEIVE A VACCINE IN THE NEXT 21 DAYS? :YES IF SO WHAT VACCINE AND WHEN? 1ST COVID DO YOU NEED ANY PRESCRIPTION? :NO DO YOU TAKE ANY IMMUNOSUPPRESSIVE MEDICATIONS? :NO IS THERE A CHANCE YOU COULD BE ? :NO ARE YOU BREAST FEEDING? :NO CURRENT MEDICATIONS TAKING IPRATROPIUM-ALBUTEROL 0.5-2.5 (3) MG/3ML SOLUTION 3 ML INHALATION EVERY 6 HRS PRN TAKING PEDIALYTE BOTTLE SOLUTION 330 ML ORALLY THREE TIMES DAILY TAKING MAY SAVAGE BAGS CLEAR VELCRO CLOSER ([id number]) ICD:V55.3 CHANGE NEEDED (EDUARD) TAKING MAY HAVE SAVAGE WAFERS NEW IMAGE SKIN BARRIERS FLATING FLANGES ICD: V55.3 ([id number] 2 1 CHANGE NEEDED (EDUARD) TAKING BABY WIPES 1 MISCELLANEOUS DIRECTED TOPICALLY PRN DX:569.62 TAKING SYRINGE 2-3 ML 3 ML MISCELLANEOUS DX: R11.0 INTRAMUSCULARLY TID PRN TAKING HOSPITAL BED USE DAILY DIRECTED DX: K91.2, G89.4, G90.522, N81.84 TAKING GLUCOMETER TESTING 4 TIMES A DAY AND NEEDED DX: , NOTES: MEDICAID #: [id number] TAKING TEST STRIPS - - DX: FOUR TIMES DAILY NEEDED, NOTES: MEDICAID #: [id number] TAKING BENTYL 10 MG CAPSULE 1 CAPSULE ORALLY FOUR TIMES A DAY PRN ABDOMINAL CRAMPING TAKING TRIAMCINOLONE ACETONIDE 0.1 % CREAM APPLY A THIN LAYER TO RED AREAS ON FINGERS EXTERNALLY TWICE A DAY TAKING NEBULIZER COMPRESSOR 1 INH DX: J45.909 EVERY 4 HOURS NEEDED TAKING NEBULIZER/TUBING/MOUTHPIECE - KIT DIRECTED DX: J45.909 EVERY 4 HOURS NEEDED TAKING ALCOHOL PREP PAD 70 % PAD DIRECTED E11.9 TEST BLOOD SUGAR QID PRN TAKING ZOFRAN 4 MG/2ML SOLUTION 4 MG INJECTION BID AT LEAST 8H APART TAKING SUCRALFATE 1 GM TABLET 1 TAB ORALLY TWICE A DAY TAKING DICYCLOMINE HCL 10 MG CAPSULE 1 CAPSULE ORALLY FOUR TIMES DAILY TAKING ALBUTEROL SULFATE HFA 108 (90 BASE) MCG/ACT AEROSOL SOLUTION 2 PUFFS NEEDED INHALATION EVERY 4 HRS PRN, NOTES: NONE RECENTLY TAKING LANCETS MISC. - MISCELLANEOUS ONE TOUCH DELICA 33G LANCETS DX: E11 FOUR TIMES DAILY NEEDED, NOTES: MEDICAID #: [id number] TAKING CICLOPIROX 8 % SOLUTION 1 APPLICATION TO THE L 5TH FINGERNAIL EXTERNALLY ONCE A DAY, CLEAN OFF WITH AN ALCOHOL PREP PAD ONCE A WEEK TAKING SODIUM CHLORIDE 0.9 % GEL ONE APPLICATION INSIDE THE R NOSTRIL EVERY 2 HRS PRN TAKING AMITRIPTYLINE HCL 50 MG TABLET DIRECTED ORALLY 1 TAB IN AM AND 3 TABS AT BEDTIME TAKING SIMETHICONE 80 MG TABLET CHEWABLE 2 TABLETS AFTER MEALS AND AT BEDTIME NEEDED ORALLY THREE TIMES A DAY NEEDED FOR ABDOMINAL PAIN AND DISTENTION TAKING AMMONIUM LACTATE 12 % CREAM 1 APPLICATION EXTERNALLY TWICE A DAY TO FEET TAKING MESALAMINE 1000 MG SUPPOSITORY 1 SUPPOSITORY AT BEDTIME RECTAL ONCE A DAY TAKING MOMETASONE FUROATE 50 MCG/ACT SUSPENSION 2 SPRAYS IN EACH NOSTRIL NASALLY ONCE A DAY TAKING NYSTATIN [id number] UNIT/GM POWDER APPLY TO AFFECTED AREA(S) AROUND STOMA 2 TIMES A DAY DIRECTED UNTIL HEALED TAKING ESTRADIOL 0.1 MG/GM CREAM 1 GRAM VAGINAL DAILY TAKING VICTOZA 18 MG/3ML SOLUTION PEN-INJECTOR 0.6MG DAILY X 1 WEEK, THENI NCREAST TO 1.2MG DAILY SUBCUTANEOUS DAILY TAKING LEVEMIR FLEX TOUCH 100 UNIT/ML SOLUTION 35 UNITS SUBCUTANEOUS IN THE MORNING TAKING LACTULOSE 20 GM/30ML SOLUTION 15 ML ORALLY AC AND HS TAKING METOCLOPRAMIDE HCL 10 MG TABLET 1 TABLET BEFORE MEALS AND BEDTIME ORALLY THREE TIMES DAILY BEFORE MEALS TAKING MUPIROCIN CALCIUM 2 % CREAM 1 APPLICATION EXTERNALLY THREE TIMES A DAY INSIDE NOSTRILS, STOP DATE 06/02/2020 TAKING PEN NEEDLES 5/16" DIRECTED SUBCUTANEOUSLY DAILY DX: E11.65 MEDICATION LIST REVIEWED AND RECONCILED WITH THE PATIENT PAST MEDICAL HISTORY DM II WITH NEUROPATHY, HBA1C GOAL IS 8.0 FOR NOW B/C OF RISK OF HYPOGLYCEMIA, CONSIDER LOWER IF CONSISTENTLY ACHIEVED ASTHMA HYPERLIPIDEMIA GERD NEPHROLITHIASIS 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 ALLERGIC RHINITIS CHRONIC MAXILLARY SINUSITIS CHRONIC HEADACHES (PAIN MANAGEMENT) CHRONIC PAIN SYNDROME/RSD (PAIN MANAGEMENT) PERSONAL HISTORY OF VENOUS THROMBOSIS AND EMBOLISM (RESOLVED 12/19/2009) ABDOMINAL HERNIA FLEXURAL ECZEMA ALLERGIES IODINE: NERVES, TIGHT MUSCLES - SIDE EFFECTS GABAPENTIN: NERVOUS SYSTEM,SHAKEY - SIDE EFFECTS GABITRIL: NERVOUS - SIDE EFFECTS KETOROLAC TROMETHAMINE: VOMITING - SIDE EFFECTS MEPERIDINE HCL: OUT OF BODY EXPERIENCE - SIDE EFFECTS MORPHINE SULFATE: SEVERE H/A WITH BIG DOSE - SIDE EFFECTS PROMETHAZINE HCL: OUT OF BODY EXPERIENCE - SIDE EFFECTS TRAMADOL: SHAKES - SIDE EFFECTS OXYCODONE: VOMITING,HIVES - ALLERGY PENICILLIN (FOR ALLERGIES USE ONLY): HIVES - ALLERGY FENTANYL: NERVOUS - SIDE EFFECTS DROPERIDOL: OUT OF BODY - SIDE EFFECTS CODEINE SULFATE: OUT OF BODY EXPERIENCE - SIDE EFFECTS PHENOTHIAZINES: NERVOUS SYSTEM - SIDE EFFECTS QUINOLONES- CIPRO,TEQUIN: HIVES - ALLERGY RED FOOD DYE: RASH - ALLERGY LIDODERM (LICOCANINE): HEART RACES - SIDE EFFECTS SULFA: HIVES - ALLERGY ASPIRIN: HIVES - ALLERGY ATIVAN: HALLUCINATIONS - SIDE EFFECTS AZITHROMYCIN: HIVES - ALLERGY BACLOFEN: AFFECTED NERVOUS SYT - SIDE EFFECTS LYRICA: SHAKES, EVERYTHING IS BLACK - SIDE EFFECTS VICODIN: CONFUSION - SIDE EFFECTS MACROBID: HIVES, BLURRED VISION - ALLERGY READI-CAT: HIVES - ALLERGY ALBUTEROL SULFATE: COUGH - ALLERGY GASTROGRAFIN: ONLY 1 BOTTLE PER TEST DAY (CAN NOT TOLERATE ANY MORE THAN 1 BOTTLE) - CONTRAINDICATION LATEX (FOR ALLERGY USE ONLY): DIFFICULTY - ALLERGY TIZANIDINE HCL: HIVES - ALLERGY SOCIAL HISTORY GENERAL: TOBACCO USE ARE YOU A:NONSMOKER NEVER SMOKER LATEX QUESTIONNAIRE LATEX ALLERGY : HAVE YOU EVER DEVELOPED ANY TYPE OF REACTION AFTER HANDLING LATEX PRODUCTS SUCH RUBBER GLOVES, CONDOMS, DIAPHRAGMS, BALLOONS, SOCKS, OR UNDERWEAR?YES SEE ALLERGY LIST - PLEASE INDICATE :OTHER (DOCUMENT IN NOTES) LATEX ALLERGY : HAVE YOU EVER DEVELOPED ANY TYPE OF REACTION DURING OR AFTER DENTAL APPOINTMENT, VAGINAL/RECTAL EXAMINATION, SURGICAL PROCEDURE, OR ANY OTHER EXPOSURE?YES - PLEASE INDICATE :DENTAL PROCEDURE, VAGINAL EXAM, RECTAL EXAM, SURGICAL PROCEDURE, OTHER (DOCUMENT IN NOTES) LATEX RISK : HAVE YOU EVER HAD ANY DIFFICULTY BREATHING OR HIVES AFTER EATING OR HANDLING ANY FRUITS, OR VEGETABLES; SUCH KIWI, BANANAS, STONE FRUITS, OR CHESTNUTSYES - PLEASE INDICATE : BANANAS, STONE FRUITS LATEX RISK : DO YOU HAVE A PREVIOUS PERSONAL HISTORY OF MORE THAN NINE SURGERIES, SPINA BIFIDA, OR REPEATED CATHERIZATIONS? YES - PLEASE INDICATE : > 9 SURGERIES LATEX RISK : ARE YOU FREQUENTLY EXPOSED TO LATEX PRODUCTS IN YOUR OCCUPATION?NO DATE ASKED : 05/25/2020 ALCOHOL USE: NO. ALCOHOL SCREENING DID YOU HAVE A DRINK CONTAINING ALCOHOL IN THE PAST YEAR?NO POINTS0 INTERPRETATIONNEGATIVE RECREATIONAL DRUG USE DRUG USE?NO CAFFEINE CAFFEINE USE?NO SEXUAL HX HAD SEX IN THE LAST 12 MONTHS (VAGINAL, ORAL, OR ANAL)?NO HAVE YOU EVER HAD AN STD?NO HIV / HEP-C SCREENING HIV TEST OFFERED TO PATIENT:YES DATE OFFERED:07/18/2016 TEST ACCEPTED:NO HEP-C TEST OFFERED TO PATIENT:YES DATE OFFERED:07/18/2016 REASON:PATIENT DECLINED TEST ACCEPTED:NO REASON:PATIENT DECLINED SABIANISM [id number] [employer] L[employer] SPOKEN:KHMER EDUCATION LEVEL OF EDUCATION:[employer] 8TH GRADE LEARNING BARRIERS / SPECIAL NEEDS CHANGE FROM LAST VISIT?NO BARRIERS TO LEARNING?NO HEARING IMPAIRED?NO VISION IMPAIRED?YES :CORRECTIVE LENSES COGNITIVELY IMPAIRED?NO READINESS TO LEARN?YES LEARNING PREFERENCES?NO LEARNING CAPABILITIES PRESENT?YES EMOTIONAL BARRIERS?NO SPECIAL DEVICES?YES :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 DIET: NO CONCENTRATED SWEETS., CARBOHYDRATE CONTROLLED. EXERCISE: NO REGULAR EXERCISE. MARITAL STATUS: SINGLE. OTHERS AT HOME: NONE. - PFS REFERRAL NEEDED?NO CLERGY REFERRAL NEEDED?NO PUBLIC HEALTH REFERRAL NEEDED?NO HAS THE PATIENT BEEN EDUCATED REGARDING HIS/HER PLAN OF CARE?YES HAS THE PATIENT BEEN EDUCATED REGARDING PAIN, THE RISK FOR PAIN, THE IMPORTANCE OF EFFECTIVE PAIN MANAGEMENT, AND THE PAIN ASSESSMENT PROCESS?YES ADVANCE DIRECTIVE ADVANCE DIRECTIVE DISCUSSED WITH PATIENT:YES STATES SHE HAS HCP - BROTHER (LUCAS); COPY PLACED IN RECORDS, HE IS ALSO POA. SHE ALSO HAS MOLST FORM THAT IS ON FILE [phone] [facility] PHONE # REVIEW OF SYSTEMS CONSTITUTIONAL: ANY RECENT FEVER NO . CHILLS NO . WEIGHT CHANGE OF UNKNOWN REASONS NO . GASTROENTEROLOGY: NEW UNEXPLAINABLE CHANGES IN BOWEL CONTROL NO . CONSTIPATION NO . GENITOURINARY: ANY NEW CHANGE IN BLADDER CONTROL? NO . NEUROLOGY: NEW ONSET DIZZINESS OR NEUROLOGICAL CHANGES NOT MENTIONED NO . NEW NUMBNESS OR PAIN PATTERNS NOT MENTIONED AND PERTINENT TO TODAY'S VISIT NO . CARDIOLOGY: NEW CHEST PRESSURE NO . NEW CHEST PAIN NO . RESPIRATORY: UNEXPLAINABLE COUGH NO . NEW SHORTNESS OF BREATH NO . VITAL SIGNS WT 184 LBS, HT 67 IN, BMI 28.82 INDEX, BP 119/65 MM HG, HR 95 /MIN, RR 18 /MIN, TEMP 97.4 F, OXYGEN SAT % 97%LEAH SANDERSON EXAMINATION GENERAL EXAMINATION: GENERALNO ACUTE DISTRESS, WELL NOURISHED AND HYDRATED. PSYCHAPPROPRIATE MOOD AND AFFECT . HEENT:1 INCH WELL-HEALED SURGICAL SCAR RIGHT OCCIPITAL-TENDER TO EXTREME LIGHT TOUCH NO ERYTHEMA .TRIGGER POINTS ELICITED RIGHT OCCIPITAL REGION.. NECK:NO LYMPHADENOPATHY, SUPPLE, . LUNGS:CLEAR TO AUSCULTATION BILATERALLY, NO WHEEZES, RHONCHI, RALES. HEART:NO MURMURS, REGULAR RATE AND RHYTHM. CERVICAL: TRIGGER POINTS: NOTED OVER NECK REGION RIGHT GREATER THAN LEFT. RANGE OF JOINT MOTION OF THE NECK INCREASES NECK AND OCCIPITAL PAIN.. ASSESSMENTS MYALGIA, OTHER SITE - M79.18 (PRIMARY) TREATMENT MYALGIA, OTHER SITE NOTES: TRIGGER POINT INJECTION HEAD/ NECK PRINT AND REVIEWD PRE PROCEDURE WITH PATIENT LEAH ANDRES. PROCEDURE CODES [id number] ESTABILISHED PATIENT [facility] CHARGE DISPOSITION & COMMUNICATION FOLLOW UP POST PROC (REASON: TRIGGER POINT INJECTION HEAD/ NECK) ELECTRONICALLY SIGNED BY DANIELE MCKEON ON 05/30/2020 AT 09:14 AM EST DISCLAIMER : THIS IS A VISIT SUMMARY EXTRACTED FROM THE [employer] CHART. IT IS NOT A COPY OF THE [employer] PROGRESS NOTE. MTDD
== END ==
LOC: M PAIN 10:00
PROVIDERS: ATTEND Nurse Practitioner Family
DX: M79.18 Myalgia, other site (principal); E11.40 Type 2 diabetes mellitus with diabetic neuropathy, unspecified; J45.909 Unspecified asthma, uncomplicated; Z96.89 Presence of other specified functional implants; Z88.0 Allergy status to penicillin; Z88.1 Allergy status to other antibiotic agents; Z88.2 Allergy status to sulfonamides; Z88.3 Allergy status to other anti-infective agents; Z88.4 Allergy status to anesthetic agent; Z88.5 Allergy status to narcotic agent; Z88.6 Allergy status to analgesic agent; Z88.8 Allergy status to other drugs, medicaments and biological substances; Z91.02 Food additives allergy status; Z91.040 Latex allergy status; Z91.041 Radiographic dye allergy status; Z79.4 Long term (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; Z79.899 Other long term (current) drug therapy

== ENCOUNTER 2020-05-27 08:44 | Emergency (ER) | payer OTHER ==
[~2020-05-27] VITALS: Ht 170.2 cm; Wt 82.0 kg
--- OUTSIDE RECORDS SUMMARY | 2020-05-27 08:52 | CCD | Continuity of Care Document ---
Author Author Rich CAMPUZANO MD Organization Unknown Address [address] [place] [id number] Phone [phone] Care Team Providers Care Instructor Private Name Role Phone Tutu Sanchez M.D. AUTM [phone] [facility] AUTM [phone] Problems Active Problems Provider Date Epistaxis Piter Jung II, PA-C Onset: 10/27/2012 Benign neoplasm of skin of face Piter Jung II, PA-C Onset: 10/27/2012 Allergic rhinitis due to pollen Shawn Carrillo MD Onset: 0 10/27/2012 Chronic maxillary sinusitis Shawn Carrillo MD Onset: 10/27 Sensory function status: taste and smell Shawn Carrillo MD Onset: 10/27/2012 Hypertrophy of nasal turbinates Shawn Carrillo MD Onset: 0 10/27/2012 Intestinal obstruction Enoc Choe DO Onset: 2012 Nonvenomous insect bite of face without infection Pitre sanchez II, PA-C Onset: 02/02/2013 Social History Type Date Description Comments Sex Unknown Tobacco Use Start: Unknown Never Smoked Cigarettes ETOH Use Denies alcohol use Recreational Drug Use Denies Drug Use Tobacco Use Start: Unknown Patient has never smoked Allergies, Adverse Reactions, Alerts Active Allergies Reaction Severity Comments Date Chlorpromazine 12/21/2009 Colchicine 12/21/2009 Fluphenazine 12/21/2009 Neurontin 12/21/2009 Oxycodone 12/21/2009 Penicillins 12/21/2009 Perphenazine 12/21/2009 Lyrica 12/21/2009 Quinolones 12/21/2009 Sulfa Antibiotics 12/21/2009 Theophylline 12/21/2009 Tramadol 12/21/2009 Aspirin 12/21/2009 Codeine 12/21/2009 Droperidol 12/21/2009 Morphine 09/16/2012 Iodine 09/05/2015 Gabapentin 09/05/2015 Gabitril 09/05/2015 Ketorolac 09/05/2015 Meperidine 09/05/2015 Promethazine 09/05/2015 Fentanyl 09/05/2015 Phenothiazines 09/05/2015 Red Dye 09/05/2015 Lidoderm 09/05/2015 Azithromycin 09/05/2015 Baclofen 09/05/2015 Hydrocodone 09/05/2015 Macrobid 09/05/2015 Albuterol 09/05/2015 Gastrografin 09/05/2015 Ativan Lethargy 05/20/2016 Medications Active Medications SIG Qnty Indications Ordering Provide r Date Mesalamine 1000mg Suppository 1 pr q day 30units Silver Campuzano JR, MD 02/17/2020 Mesalamine 1000mg Suppository Silver Campuzano JR, MD 01/05/2020 Keflex 500mg Capsules 1 by mouth three times a day 30caps Silver Campuzano JR, MD 10/26/2018 Linzess 290mcg Capsules 1 by mouth every day 90caps Silver Campuzano JR, MD 02/17/2017 Toujeo Solostar 300U nit/ML Solution Pen-Inject 35U Daily Silver Campuzano JR, MD 2016 Magnesium Citrate Solution 300 ccs by mouth 1 time 296ml Silver Campuzano JR, MD 07/17/2016 Novolog Mix 70/30 (7 0-30)100Unit/ML Suspension 25 Units Q Afternoon Unknown 000 Reglan 10mg Tablets 1 tab by mouth four times a day Unknown Zofran 4mg/5ML Solution take 5 milliliters by mouth every 8 hours as needed nausea Unknown Aspirin 81mg Tablets DR 1 by mouth every day Unknown Stool Softener 100mg Capsules daily Unknown Senna Lax 8.6mg Tablets every night Unknown Miralax 3350NF Powder 17 gm three times a day Unknown Lactulose 10GM/15ML Solution take 15 milliliters by mouth daily Unknown Multi Vitamin Daily Tablets 1xby mouth daily Unknown Cranberry 077-241-1iv-mg-Unit Caps ules once a day Unknown Azelastine HCL (Nasal) 0.1% Soluti on daily Unknown Movantik 25mg Tablets 1 by mouth every day 30tabs Unknown Triamcinolone Acetonide 0.1% Cream Unknown Fluconazole 150mg Tablets Take 1 Tablet By Mouth Every Week Unknown Levemir 100Unit/ML Solution 35 Units qam Unknown Victoza 18mg/3ML Solution Pen-Inje ct 1.26 Units qam Unknown Hydromorphone HCL 4mg Tablets every 4 hours as needed Unknown Ranitidine HCL 150mg Tablets take one tablet by mouth twice a day Unknown Lopid 600mg Tablets 1qd Unknown Amitriptyline HCL 25mg Tablets 3 by mouth @ at bedtime, 1 in am Unknown Potassium Chloride ER 20Meq Tablet s ER 1 by mouth every day 60tabs Unknown Magnesium Oxide 400mg Capsules 1 bid Unknown Symbicort 160-4.5mcg/Act Aerosol 2 puff twice a day Unknown Carafate 1gm Tablets 1 tab by mouth before meals and at bedtime Unknown Milk Of Magnesia 7.75% Suspension 1 tbsp by mouth three times a day days before colonoscopy prep 360ml Unknown Lac-Hydrin 12% Lotion bid Unknown Glucerna 1.0 Jon/Fiber 1.0Cal Liqu id 5 qd prn Unknown Nasacort Allergy 24HR 55mcg/Act Ae rosol 1 sprays each nostril every day Unknown Hydrocortisone 1% Cream as ne eded Unknown Rogaine Extra Strength For Men 5% Solution twice a day Unknown Cetirizine HCL 10mg Tablets 1 by mouth every day Unknown Tizanidine HCL 2mg Capsules 1/2 tabs twice a day Unknown Immunizations Description No Information Available Vital Signs Date Vital Result Comment 05/24/2020 1:10pm BP Systolic 118 mmHg BP Diastolic 73 mmHg Heart Rate 103 /min Height 67 inches 5'7" Weight 183.50 lb BMI (Body Mass Index) 28.7 kg/m2 [place] Body Weight 135 lb Weight 83.236 kg BSA (Body Surface Area) 1.95 m2 04/26/2020 10:01am BP Systolic 126 mmHg BP Diastolic 84 mmHg Height 67 inches 5'7" Weight 181.50 lb BMI (Body Mass Index) 28.4 kg/m2 [place] Body Weight 135 lb Weight 82.328 kg BSA (Body Surface Area) 1.94 m2 Results Test Acquired Date Facility Test Result H/L Range Note Laboratory test finding 12/22/2019 [facility] [address] [place] [address] [phone] Bedside Glucose 256 mg/dL High 70-105 Laboratory test finding 12/22/2019 [facility] [address] [place] [address] [phone] Bedside Glucose 260 mg/dL High 70-105 Laboratory test finding 12/21/2019 [facility] [address] [place] [address] [phone] Bedside Glucose 214 mg/dL High 70-105 Laboratory test finding 12/21/2019 [facility] [address] [place] [address] [phone] Bedside Glucose 126 mg/dL High 70-105 Laboratory test finding 12/21/2019 [facility] [address] [place] [address] [phone] Bedside Glucose 159 mg/dL High 70-105 Laboratory test finding 12/21/2019 [facility] [address] [place] [address] [phone] Bedside Glucose 185 mg/dL High 70-105 Laboratory test finding 12/21/2019 [facility] [address] [place] [address] [phone] Bedside Glucose 203 mg/dL High 70-105 Procedures Date Code Description Status 02/17/2020 61456 Sigmoidoscopy, Flexi ble;Diagnostic W/Or W/O Collection Of Specime Completed 12/21/2019 54292 Implantation Of Mesh Or Other Prosthesis For Incisional Or Ventra Completed 12/21/2019 84606 Hernia Recurr Ventral/Incisional , Reducible Completed Medical Devices Description No Information Available Encounters Type Date Location Provider Dx Diagnosis Office Visit 04/26/2020 10:30a [facility] Silver sapp JR, MD R10.84 Generalized abdominal pain Office Visit 03/15/2020 1:30p [facility] Silver sapp JR, MD R10.84 Generalized abdominal pain Office Visit 01/10/2020 2:30p [facility] Toribio myers NP K62.89 Other specified diseases of anus and rec wilber Office Visit 12/29/2019 9:50a [facility] Silver sapp JR, MD K43.2 Incisional hernia without obstruction or gangrene Z48.89 Encounter for other specifie d surgical aftercare Office Visit 12/27/2019 3:00p [facility] Toribio myers NP K43.2 Incisional hernia without obstruction or gangrene Z48.89 Encounter for other specifie d surgical aftercare Assessments Date Code Description Provider 04/26/2020 R10.84 Generalized abdominal pain Silver Campuzano JR, MD 03/15/2020 R10.84 Generalized abdominal pain Silver Campuzano JR, MD 02/17/2020 K62.5 Hemorrhage of anus and rectum Hannah Campuzano JR, MD 01/10/2020 K62.89 Other specified diseases of anus and rectum Toribio Haque NP 12/29/2019 K43.2 Incisional hernia without obstru ction or gangrene Silver Campuzano JR, MD 12/29/2019 Z48.89 Encounter for other specified mejia rgical aftercare Silver Campuzano JR, MD 12/27/2019 K43.2 Incisional hernia without obstru ction or gangrene Toribio Haque NP 12/27/2019 Z48.89 Encounter for other specified mejia rgical aftercare Toribio Haque NP 12/21/2019 K43.2 Incisional hernia without obstru ction or gangrene Silver Campuzano JR, MD Plan of Treatment 04/26/2020 - Silver Campuzano JR, MD* R10.84 Generalized abdominal pain* Comments: * Patient has pain and will continue to have pain for the rest of her life I anticipate given her history if we looked back at this she does have some intermittent times that last for sometimes a few days/a few months after operative intervention but only has recurrence of this abdominal pain always has had recurrence of hernias and has had a progressively frozen abdomen which has been much more difficult to enter/operate on without a significant risk of enterotomy and subsequent mesh infection. In any case I had the discussion with her multiple times over multiple years that operative intervention in her situation given her significant perioperative risk and the significant risk to benefit ratio that is much more favoring risk than benefit, we have recommended that she only undergo operative intervention when absolutely necessary or when she has obstructions that are not resolving by nonconservative measures in the hospital etc. Functional Status Description No Information Available Mental Status Description No Information Available Referrals Refer to Reason for Referral Status Appt Date [facility] Cl osed 03/21/2020 [address] [place] [address] [phone]
--- OUTSIDE RECORDS SUMMARY | 2020-05-27 08:52 | CCD ---
Author Author [facility] Organization [facility] Address Unknown Phone Unavailable Care Team Providers Care Medical Staff Specialist Name Role Phone Pedro Pal Unavailable PROBLEMS Type Condition ICD9-CM Code [id number] Code Onset Dates Condition S tatus W/U Status Risk SNOMED Code Notes Problem 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 Active confirm ed 17615792 Problem Unspecified asthma J45.909 Active confirmed 508176124 Problem Complicated headache syndromes G44.59 Active confir med 438583981 Problem Chronic nausea R11.0 Active confirmed 77556 7007 Problem Chronic maxillary sinusitis J32.0 Active confirmed 27388469 Problem History of abdominal surgery Z98.890 Active confirm ed 126300437 Problem Allergic rhinitis, unspecified seasonality, unspecifie d trigger J30.9 Active confirmed 17260308 Problem Internal hemorrhoids without mention of complication K64.8 Active confirmed 36335473 Problem Viral warts, unspecified B07.9 Active confirmed 36503301 Problem DM w/o complication type II, uncontrolled E11.65 Active confirmed 15226436 Problem Pelvic muscle wasting N81.84 Active confirmed 88296953 Problem Mixed hyperlipidemia E78.2 Active confirmed 322644206 Problem Anemia, chronic disease D63.8 Active confirmed 871842110 Problem Breast calcification seen on mammogram R92.1 A ctive confirmed 472591053 Problem Esophageal reflux K21.9 Active confirmed 23 9284514 Problem Chronic pain associated with significant psychos ocial dysfunction G89.4 Active confirmed 322671242 Problem Low back pain M54.5 Active confirmed 696795 009 Problem Dysfunction of eustachian tube, bilateral H69.83 Active confirmed 01570089 Problem DM w/o complication type II E11.9 Active confirmed 443236894 Problem Fatty liver K76.0 Active confirmed 18002937 7 Problem Chronic prescription opiate use Z79.899 Active confirmed 185780546 Problem Occipital neuralgia M54.81 Active confirmed 08105705 Problem Multiple drug allergies Z88.9 Active confirmed 001299088 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 Activ e confirmed 486135603 Problem Myalgia M79.1 Active confirmed 14321552 Problem Granulomatous disorder of the skin and s ubcutaneous tissue, unspecified L92.9 Active confirmed 119148223 Problem Type 2 diabetes mellitus with stage 3 chronic kidney disea se E11.22 Active confirmed 13528580 Problem Hypomagnesemia E83.42 Active confirmed 57811 5004 Problem Ileostomy status Z93.2 Active confirmed 302 346403 Problem Chronic kidney disease, stage III (moderate) N18.3 Active confirmed 411339446 Problem Complex regional pain syndrome I of left lower limb G90.522 Active confirmed 341229298 Problem Spinal cord stimulator status Z96.89 Active confirm ed 303464362 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 Active conf irmed 994709806 Problem Encounter for care related to vascular access port Z45.2 Active confirmed 217342002 Problem Myalgia, other site M79.18 Active confirmed 82479195 Problem Type 2 diabetes mellitus without complications E11 .9 Active confirmed 796981664 Problem Constipation, unspecified constipation type K59.00 Active confirmed 02222134 Problem Hypoglycemia E16.2 Active confirmed 4652664 03 Problem Left lower quadrant pain R10.32 Active confirmed 919455395 Problem Pseudogout M11.20 Active confirmed 390088794 Problem Flexural eczema L20.82 Active confirmed 5709 2006 Problem Falls frequently R29.6 Active confirmed 279 715283 Problem Disorders of magnesium metabolism, unspecified E83 .40 Active confirmed 88242820 Problem Other chronic pain G89.29 Active confirmed 8 8270819 Problem Port catheter in place Z95.828 Active confirmed 342925978 Problem Grief F43.20 Active confirmed 267740559 Problem Cervicalgia M54.2 Active confirmed 60325157 Problem Rosacea L71.9 Active confirmed 147982615 Problem Vaginal atrophy N95.2 Active confirmed 2971 67788 Problem Incisional hernia with obstruction but no gangrene K43.0 Active confirmed 476558215 ALLERGIES Allergen (clinical drug ingredient) Drug/Non Drug Allergy do cumented on EMR Reaction Allergy Type Onset Date Status morphine Morphine Sulfate(NDC Code:[address]-14) severe h/a with big dose Drug Allergy Active codeine Codeine Sulfate(NDC Code:[address]-63) out of b vito experience Drug Allergy Active red food dye rash Non Drug Allergy Active Gastrografin(NDC Code:[address]-78) Onl y 1 bottle per test day (can not tolerate any more than 1 bottle) Drug Allergy Active tiagabine Gabitril(NDC Code:[address]-50) nervous Drug Allergy Active ketorolac Ketorolac Tromethamine(NDC Code:[address]-22) vomitin g Drug Allergy Active Vicodin Confusion Drug Allergy Active Penicillin (For Allergies Use Only) Hives Drug Allerg y Active sulfa Hives Drug Allergy Active Baclofen affected nervous syt Drug Allergy Ac tive promethazine Promethazine HCl(NDC Code:[address]-47) out of body experience Drug Allergy Active Readi-Cat Hives Drug Allergy Active iodine nerves, tight muscles Drug Allergy A ctive tizanidine Tizanidine HCl(NDC Code:[address]-16) Hives Drug All ergy Active droperidol Droperidol(NDC Code:[address]-44) out of body Drug Allerg y Active Latex (for allergy use only) difficulty Drug Allergy Active pregabalin Lyrica shakes, everything is black Drug Allergy Active azithromycin Azithromycin(NDC Code:[address]-15) hives Drug All ergy Active phenothiazines nervous system Drug Allergy Acti ve lorazepam Ativan(NDC Code:[address]-58) hallucinations Drug Allergy Active Oxycodone vomiting,hives Drug Allergy Active nitrofurantoin, macrocrystals / nitrofurantoin, monohy drate Macrobid(NDC Code:[address]-14) Hives, blurred vision Drug Allergy Active meperidine Meperidine HCl(NDC Code:[address]-51) out of dena dy experience Drug Allergy Active tramadol Tramadol(NDC Code:[address]-21) shakes Drug Allergy Active lidoderm (licocanine) heart races Drug Allergy Active gabapentin Gabapentin([facility] Code:[address]-77) nervous syste m,shakey Drug Allergy Active aspirin Aspirin([facility] Code:[address]-61) Hives Drug Allergy Active fentanyl Fentanyl(ND Code:[address]-30) nervous Drug Allergy Active albuterol Albuterol Sulfate([facility] Code:[address]-99) cough Drug Allergy Active quinolones- cipro,tequin Hives Drug Allergy Active ENCOUNTERS from 1960 to 2020-05-23 Encounter Location Date Provider Diagnosis [address] [address] May, Pedro Pal IMMUNIZATIONS Vaccine Route Administration Date Status Toradol 60mg/2mL (Ketorolac) IM Intramuscular Feb 18, 2017 Ad ministered Toradol 60mg/2mL (Ketorolac) IM Intramuscular Feb 19, 2017 Ad ministered Toradol 60mg/2mL (Ketorolac) IM Intramuscular Feb 20, 2017 Ad ministered Toradol 60mg/2mL (Ketorolac) IM Intramuscular Feb 21, 2017 Ad ministered Toradol 60mg/2mL (Ketorolac) IM Intramuscular Jan 31, 2017 Ad ministered Toradol 60mg/2mL (Ketorolac) IM Intramuscular Feb 04, 2017 Ad ministered Toradol 60mg/2mL (Ketorolac) IM Intramuscular Feb 05, 2017 Ad ministered Toradol 60mg/2mL (Ketorolac) IM Intramuscular Feb 06, 2017 Ad ministered Influenza (6mo & up) Fluzone IM Intramuscular Jan 12, 2010 Ad ministered TD Adult 0.5mL (Tetanus) Unknown October 12, 2005 Adminis tered Influenza (6mo & up) Fluzone IM Intramuscular Feb 03, 2017 Ad ministered Influenza (6mo & up) Fluzone Unknown Jan 27, 2016 Adm inistered Influenza (6mo & up) Fluzone IM Intramuscular Jan 20, 2015 Ad ministered Influenza (6mo & up) Fluzone IM Intramuscular Dec 31, 2013 Ad ministered Influenza (6mo & up) Fluzone IM Intramuscular Jan 25, 2013 Ad ministered Influenza (6mo & up) Fluzone IM Intramuscular Feb 04, 2012 Ad ministered Influenza (6mo & up) Fluzone IM Intramuscular Mar 15, 2011 Ad ministered Toradol 60mg/2mL (Ketorolac) IM Intramuscular Feb 24, 2017 Ad ministered Toradol 60mg/2mL (Ketorolac) IM Intramuscular July 14, 2017 Ad ministered Toradol 60mg/2mL (Ketorolac) IM Intramuscular July 21, 2017 Ad ministered Hepatitis A & B 1mL (Twinrix) IM Intramuscular Feb 11, 2012 A dministered Toradol 60mg/2mL (Ketorolac) IM Intramuscular September 04, 2017 Ad ministered Hepatitis A & B 1mL (Twinrix) IM Intramuscular Apr 15, 2012 A dministered Toradol 60mg/2mL (Ketorolac) IM Intramuscular September 05, 2017 Ad ministered Pneumococcal Adult 0.5mL (Pneumovax 23) IM Intramuscular Feb 22, 2013 Administered Toradol 60mg/2mL (Ketorolac) IM Intramuscular September 10, 2017 Ad ministered Toradol 60mg/2mL (Ketorolac) IM Intramuscular Apr 22, 2016 Ad ministered Toradol 60mg/2mL (Ketorolac) IM Intramuscular July 22, 2017 Ad ministered TDAP Unknown September 13, 2009 Administered Toradol 60mg/2mL (Ketorolac) IM Intramuscular July 23, 2017 Ad ministered Pneumococcal Adult 0.5mL (Pneumovax 23) Unknown Jan 27, 2016 Administered Toradol 60mg/2mL (Ketorolac) IM Intramuscular August 27, 2017 Ad ministered Hepatitis A & B 1mL (Twinrix) IM Intramuscular October 02, 2011 A dministered Toradol 60mg/2mL (Ketorolac) IM Intramuscular September 03, 2017 Ad ministered Toradol 60mg/2mL (Ketorolac) IM Intramuscular Apr 26, 2016 Ad ministered Toradol 60mg/2mL (Ketorolac) IM Intramuscular May 01, 2016 Ad ministered Toradol 60mg/2mL (Ketorolac) IM Intramuscular May 03, 2016 Ad ministered Toradol 60mg/2mL (Ketorolac) IM Intramuscular September 09, 2017 Ad ministered Toradol 60mg/2mL (Ketorolac) IM Intramuscular September 22, 2017 Ad ministered Toradol 60mg/2mL (Ketorolac) IM Intramuscular September 23, 2017 Ad ministered Toradol 60mg/2mL (Ketorolac) IM Intramuscular 2017 Ad ministered Toradol 60mg/2mL (Ketorolac) IM Intramuscular Dec 09, 2016 Ad ministered Toradol 60mg/2mL (Ketorolac) IM Intramuscular October 01, 2018 Ad ministered Toradol 60mg/2mL (Ketorolac) IM Intramuscular Dec 12, 2016 Ad ministered Toradol 60mg/2mL (Ketorolac) IM Intramuscular October 06, 2018 Ad ministered Toradol 60mg/2mL (Ketorolac) IM Intramuscular Dec 23, 2016 Ad ministered Toradol 60mg/2mL (Ketorolac) IM Intramuscular Dec 30, 2016 Ad ministered Toradol 60mg/2mL (Ketorolac) IM Intramuscular May 07, 2016 Ad ministered Toradol 60mg/2mL (Ketorolac) IM Intramuscular September 25, 2017 Ad ministered Toradol 60mg/2mL (Ketorolac) IM Intramuscular May 28, 2016 Ad ministered Toradol 60mg/2mL (Ketorolac) IM Intramuscular September 26, 2017 Ad ministered Toradol 60mg/2mL (Ketorolac) IM Intramuscular July 18, 2016 Ad ministered Toradol 60mg/2mL (Ketorolac) IM Intramuscular September 25, 2018 Ad ministered Toradol 60mg/2mL (Ketorolac) IM Intramuscular Dec 27, 2016 Ad ministered Toradol 60mg/2mL (Ketorolac) IM Intramuscular October 05, 2018 Ad ministered Toradol 60mg/2mL (Ketorolac) IM Intramuscular Jan 07, 2017 Ad ministered Toradol 60mg/2mL (Ketorolac) IM Intramuscular Jan 08, 2017 Ad ministered Rocephin 1gm (Ceftriaxone) IM Intramuscular Dec 20, 2015 Admi nistered Rocephin 1gm (Ceftriaxone) IM Intramuscular Dec 21, 2015 Admi nistered Rocephin 1gm (Ceftriaxone) IM Intramuscular Dec 22, 2015 Admi nistered Pneumococcal Adult 0.5mL (Pneumovax 23) IM Intramuscular September Administered Rocephin 1gm (Ceftriaxone) IM Intramuscular Apr 26, 2016 Admi nistered Toradol 60mg/2mL (Ketorolac) IM Intramuscular July 30, 2019 Ad ministered Toradol 60mg/2mL (Ketorolac) IM Intramuscular Jan 13, 2017 Ad ministered Rocephin 1gm (Ceftriaxone) IM Intramuscular May 22, 2017 Admi nistered Toradol 60mg/2mL (Ketorolac) IM Intramuscular Feb 03, 2017 Ad ministered Toradol 60mg/2mL (Ketorolac) IM Intramuscular Jan 17, 2017 Ad ministered Toradol 60mg/2mL (Ketorolac) IM Intramuscular Jan 20, 2017 Ad ministered Rocephin 1gm (Ceftriaxone) IM Intramuscular Dec 15, 2015 Admi nistered Rocephin 1gm (Ceftriaxone) IM Intramuscular May 23, 2017 Admi nistered Rocephin 1gm (Ceftriaxone) IM Intramuscular Dec 19, 2015 Admi nistered Rocephin 1gm (Ceftriaxone) IM Intramuscular May 19, 2017 Admi nistered Toradol 60mg/2mL (Ketorolac) IM Intramuscular Jan 10, 2017 Ad ministered Rocephin 1gm (Ceftriaxone) IM Intramuscular May 20, 2017 Admi nistered Toradol 60mg/2mL (Ketorolac) IM Intramuscular Jan 09, 2017 Ad ministered Rocephin 1gm (Ceftriaxone) IM Intramuscular May 21, 2017 Admi nistered Toradol 60mg/2mL (Ketorolac) IM Intramuscular Jan 21, 2017 Ad ministered Toradol 60mg/2mL (Ketorolac) IM Intramuscular Jan 22, 2017 Ad ministered Toradol 60mg/2mL (Ketorolac) IM Intramuscular Jan 23, 2017 Ad ministered Influenza (18 yrs & older) Flublok IM Intramuscular Jan 23, 2018 Administered SOCIAL HISTORY Tobacco Use: Social History Observation Description Date Details (start date - stop date) Never Smoker Sex Assigned At : Social History Observation Description Sex Assigned At Unknown Education: Question Answer Notes Level of Education: Grade School 8th grade Audit Question Answer Notes Total Score: 0 Interpretation: Alcohol Education Language: Question Answer Notes Languages spoken: Persian Baptist: Question Answer Notes [employer] 15 [employer] Sexual Hx: Question Answer Notes Had sex in the last 12 months (vaginal, oral, or anal)? No Have you ever had an STD? No Drug and Alcohol Question Answer Notes Total Score: 0 Interpretation: No problems reported Alcohol Screening: Question Answer Notes Did you have a drink containing alcohol in the past year? No Points 0 Interpretation Negative BMI Care Goal Follow-Up Question Answer Notes Above Normal BMI Follow-Up Lifestyle education regarding t Tobacco Use: Question Answer Notes Are you a: never smoker never smoker REASON FOR REFERRAL No Information VITAL SIGNS No information MEDICATIONS Medication SIG (Take, Route, Frequency, Duration) Notes Start Da te End Date Status Levemir Flex Touch 100 UNIT/ML 35 units Subcutaneous in the morning for 30 days Jul, Active Sucralfate 1 GM 1 tab Orally Twice a day for 30 days Active Alcohol Prep Pad 70 % as directed E11.9 test blood sugar QID PRN for 30 Days Jun, Active Glucometer testing 4 times a day and as needed Dx: E11 f or 30 days Jun, Active Dicyclomine HCl 10 MG 1 capsule Orally four times daily for 30 Days Active Lancets Misc. - One touch delica 33G lancets Dx: E11.65 four times daily as needed for 30 Days Jun, Active Ammonium Lactate 12 % 1 application Externally Twice a day t o feet for 30 Days Jun, Active Amitriptyline HCl 50 MG as directed Orally 1 tab in am and 3 tabs at bedtime for 30 Days Active Mupirocin Calcium 2 % 1 application Externally Thr ee times a day inside nostrils for 10 day(s) Apr, May, Active Mesalamine 1000 MG 1 suppository at bedtime Rectal Once a day fo r 30 day(s) Mar, Active Zofran 4 MG/2ML 4 mg Injection BID at least 8h apart for 30 days Nov, Active Pen P[place]leton 08/27" as directed subcutaneously Daily dx: E11.65 fo r 90 day(s) Jul, Active Sodium Chloride 0.9 % one application inside the R nostril every 2 hrs prn for 7 day(s) Mar, Active Baby Wipes 1 as directed topically prn dx:569.62 for 7 day(s) Active May have jerome wafers flating flanges ICD: v55.3 ( 82253 2 1/2 change as needed (Tatianna) Active May [place] (83970) ICD:v55.3 change as needed (Payton nash) for 30 day(s) Active Metoclopramide HCl 10 MG 1 tablet before meals and be dtime Orally three times daily before meals for 30 days Jun, A ctive Triamcinolone Acetonide 0.1 % apply a thin layer to re d areas on fingers Externally Twice a day for 30 Days Active Estradiol 0.1 MG/GM 1 gram Vaginal daily for 30 Days 2019 Active Lactulose 20 GM/30ML 15 ml Orally AC and HS for 30 Days Active Albuterol Sulfate HFA 108 (90 Base) MCG/ACT 2 puffs as needed Inhalation every 4 hrs prn for 30 Days Active Syringe 2-3 ML 3 ML dx: r11.0 intramuscularly tid prn for 30 Day s Feb, Active Bentyl 10 MG 1 capsule Orally Four times a day prn abdominal cramping for 30 Days Active Simethicone 80 MG 2 tablets after meals and at bedtime as needed Orally three times a day as needed for abdominal pain and distention for 30 Active Pedialyte bottle 330 ml Orally three times daily for 30 days Active Ciclopirox 8 % 1 application to the l 5th f ingernail Externally Once a day, clean off with an alcohol prep pad once a week for 90 day(s) Mar, Active Nystatin 380724 UNIT/GM APPLY TO AFFECTED AREA(S) AR OUND STOMA 2 TIMES A DAY DIRECTED UNTIL HEALED for 14 Act nba Test Strips - - Dx: E11.65 four times daily as needed for 30 D ays Jun, Active Mometasone Furoate 50 MCG/ACT 2 sprays in each nostril Nasally Once a day for 30 day(s) Mar, Active Hospital bed use daily as directed dx: K9 1.2, G89.4, G90.522, N81.84 for 99 days May, Active Nebulizer Compressor 1 inh dx: J45.909 every 4 hours as needed f or 90 day(s) August, Active Victoza 18 MG/3ML 0.6mg daily x 1 week, theni ncreast to 1.2mg daily Subcutaneous Daily for 30 days Mar, A ctive Nebulizer/Tubing/Mouthpiece - as directed dx: J45.909 every 4 hours as needed for 90 day(s) August, Active Ipratropium-Albuterol 0.5-2.5 (3) MG/3ML 3 ml Inhalati on every 6 hrs PRN for 30 days Dec, Active PROCEDURES No Information RESULTS No Results REASON FOR VISIT ER F/U MEDICAL (GENERAL) HISTORY Type Description Date Medical History DM II with neuropathy, HbA1c goal is 8.0 for now b/c of risk of hypoglycemia, consider lower if consistently achieved Medical History Asthma Medical History Hyperlipidemia Medical History GERD Medical History Nephrolithiasis Medical History H/o multiple abdominal surgeries with re current hernias again Medical History Allergic Rhinitis Medical History Chronic maxillary sinusitis Medical History Chronic headaches (Pain Management) Medical History Chronic pain syndrome/RSD (Pain Manageme nt) Medical History Personal history of venous t hrombosis and embolism (resolved 12/19/2009) Medical History abdominal hernia Medical History Flexural Eczema Surgical History No personal hx of severe josephine ction to anesthesia, her brother has "had his throat close off two different times" with general anesthesia Surgical History scalp tumor 1984 Surgical History lumpectomies - reported as benign Bilate ral 16 and 21 yo Surgical History Total hysterectomy-due to ovarian cysts/ mass 21 yo Surgical History bilat sympathectomy 1987 Surgical History AV fistula repair L leg 1988 Surgical History cholecystectomy late Surgical History SBO 2001 Surgical History abdominal hernia repair 2004 Surgical History ventral hernia repair 2009 Surgical History dorsal column stimulator taken out and n ew one implanted 02/21 Surgical History small portion of small bowel resected and ventral hernia repairs (Batoolstyrel) 06/2010 Surgical History Ileostomy-[place]na 07/28/12 Surgical History Cyst removed right nostril- Dr Carrillo. Surgical History repair two hernias and repair of stoma 1 05/27 Surgical History Hernia repair X2 08/31/13 Surgical History Parastomal hernia repair- Tatianna 06/26 Surgical History Hernia and stoma repair-Tatianna 06/11 Surgical History perastomal hernia repair, with a small b owel obstruction 03/2017 Surgical History Infusaport placment ([facility]) 08/2017 Surgical History hernia repair x4 stoma reversal 10/2017 Surgical History battery replacement for stimulator 03/03 18 Hospitalization History [facility]- small bowel obstruction, was in hospital 11 days 09/2015 Hospitalization History [facility]- small bowel obstruction, was in hospital in 5 days 03/2016 Hospitalization History [facility]- small bowel obstruction 6-04/17/16 Hospitalization History [facility]- small bowel obstruction 06/2016 Hospitalization History [facility]- small bowel obstruction 03/17/17 -04/18/17 Hospitalization History [facility] - small bowel obstruction, pneum onia, pseudogout 11/2018 Hospitalization History [facility] - small bowel obstruction Hospitalization History [facility]-Short Gut Syndrome 06/29/19 Goals Section No Information Health Concerns No Information MEDICAL EQUIPMENT No Information MENTAL STATUS No Information FUNCTIONAL STATUS No Information ASSESSMENTS No Information PLAN OF TREATMENT Next Appt Details Provider Name:Deann El, 2020-05-25 10 :00:00 AM, [address] [place] [address], [phone], Provider Name:Peyton Avila, 11:00:00 AM, [address] [place] [address], [phone], Provider Name:Deann El, 2020-06-26 10 :00:00 AM, [address] [place] [address], [phone], Provider Name:Tutu Sanchez, 2020-07-13 6 02:15:00 PM, [address] [place] [address], [phone], Insurance Providers Payer Name Payer Address Payer Phone Insured Name Patient Relati onship to Insured Coverage Start Date Coverage End Date [facility] [address] [place] [id number] RUBA GRAFF,GLENN [place]
--- OUTSIDE RECORDS SUMMARY | 2020-05-27 08:53 | CCD ---
Author Author [facility] Organization [facility] Address Unknown Phone Unavailable Care Team Providers Care Senior Ui Developer Name Role Phone Peyton Avila Unavailable PROBLEMS Type Condition ICD9-CM Code [id number] Code Onset Dates Condition S tatus SNOMED Code Notes Problem 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 Active 26 091730 Problem Unspecified asthma J45.909 Active 693477263 Problem Complicated headache syndromes G44.59 Active 2 03407398 Problem Chronic nausea R11.0 Active 703500021 Problem Chronic maxillary sinusitis J32.0 Active 3592 3002 Problem History of abdominal surgery Z98.890 Active 161 856427 Problem Allergic rhinitis, unspecified seasonality, unspecifie d trigger J30.9 Active 77271594 Problem Internal hemorrhoids without mention of complication K64.8 Active 61421175 Problem Viral warts, unspecified B07.9 Active 4753707 3 Problem DM w/o complication type II, uncontrolled E11.65 Active 26677915 Problem Pelvic muscle wasting N81.84 Active 07212468 Problem Mixed hyperlipidemia E78.2 Active 251711220 Problem Anemia, chronic disease D63.8 Active 65817008 6 Problem Breast calcification seen on mammogram R92.1 A ctive 202177911 Problem Esophageal reflux K21.9 Active 132940005 Problem Chronic pain associated with significant psychos ocial dysfunction G89.4 Active 747182855 Problem Low back pain M54.5 Active 530182649 Problem Dysfunction of eustachian tube, bilateral H69.83 Active 97211226 Problem DM w/o complication type II E11.9 Active 3134 02284 Problem Fatty liver K76.0 Active 894053696 Problem Chronic prescription opiate use Z79.899 Active 261318882 Problem Occipital neuralgia M54.81 Active 27719943 Problem Multiple drug allergies Z88.9 Active 37518284 2 Problem [facility] (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 Z79.4 Activ e 968994546 Problem Myalgia M79.1 Active 77476428 Problem Granulomatous disorder of the skin and s ubcutaneous tissue, unspecified L92.9 Active 583898599 Problem Type 2 diabetes mellitus with stage 3 chronic kidney disea se E11.22 Active 50053451 Problem Hypomagnesemia E83.42 Active 484775053 Problem Ileostomy status Z93.2 Active 709891644 Problem Chronic kidney disease, stage III (moderate) N18.3 Active 883438505 Problem Complex regional pain syndrome I of left lower limb G90.522 Active 781799932 Problem Spinal cord stimulator status Z96.89 Active 12 4965012 Problem 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 Active 333944534 Problem Encounter for care related to vascular access port Z45.2 Active 429043501 Problem Myalgia, other site M79.18 Active 78558280 Problem Type 2 diabetes mellitus without complications E11 .9 Active 910333115 Problem Constipation, unspecified constipation type K59.00 Active 35969464 Problem Hypoglycemia E16.2 Active 731912879 Problem Left lower quadrant pain R10.32 Active 7456102 02 Problem Pseudogout M11.20 Active 583529373 Problem Flexural eczema L20.82 Active 83703791 Problem Falls frequently R29.6 Active 702021212 Problem Disorders of magnesium metabolism, unspecified E83 .40 Active 10196983 Problem Other chronic pain G89.29 Active 15350260 Problem Port catheter in place Z95.828 Active 179897721 Problem Grief F43.20 Active 174569599 Problem Cervicalgia M54.2 Active 89962223 Problem Rosacea L71.9 Active 439914177 Problem Vaginal atrophy N95.2 Active 547897392 Problem Incisional hernia with obstruction but no gangrene K43.0 Active 113442360 ALLERGIES Allergen (clinical drug ingredient) Drug/Non Drug Allergy do cumented on EMR Reaction Allergy Type Onset Date Status morphine Morphine Sulfate([facility] Code:[address]-86) severe h/a with big dose Drug Allergy Active codeine Codeine Sulfate([facility] Code:[address]-60) out of b vito experience Drug Allergy Active red food dye rash Non Drug Allergy Active Gastrografin([facility] Code:[address]-06) Onl y 1 bottle per test day (can not tolerate any more than 1 bottle) Drug Allergy Active tiagabine Gabitril([facility] Code:[address]-53) nervous Drug Allergy Active ketorolac Ketorolac Tromethamine([facility] Code:[address]-55) vomitin g Drug Allergy Active Vicodin Confusion Drug Allergy Active Penicillin (For Allergies Use Only) Hives Drug Allerg y Active sulfa Hives Drug Allergy Active Baclofen affected nervous syt Drug Allergy Ac tive promethazine Promethazine HCl([facility] Code:[address]-83) out of body experience Drug Allergy Active Readi-Cat Hives Drug Allergy Active iodine nerves, tight muscles Drug Allergy A ctive tizanidine Tizanidine HCl([facility] Code:[address]-74) Hives Drug All ergy Active droperidol Droperidol([facility] Code:[address]-31) out of body Drug Allerg y Active Latex (for allergy use only) difficulty Drug Allergy Active pregabalin Lyrica shakes, everything is black Drug Allergy Active azithromycin Azithromycin([facility] Code:[address]-48) hives Drug All ergy Active phenothiazines nervous system Drug Allergy Acti ve lorazepam Ativan([facility] Code:[address]-22) hallucinations Drug Allergy Active Oxycodone vomiting,hives Drug Allergy Active nitrofurantoin, macrocrystals / nitrofurantoin, monohy drate Macrobid([facility] Code:[address]-38) Hives, blurred vision Drug Allergy Active meperidine Meperidine HCl([facility] Code:[address]-00) out of dena dy experience Drug Allergy Active tramadol Tramadol([facility] Code:[address]-19) shakes Drug Allergy Active lidoderm (licocanine) heart races Drug Allergy Active gabapentin Gabapentin([facility] Code:[address]-31) nervous syste m,shakey Drug Allergy Active aspirin Aspirin([facility] Code:[address]-02) Hives Drug Allergy Active fentanyl Fentanyl([facility] Code:[address]-82) nervous Drug Allergy Active albuterol Albuterol Sulfate([facility] Code:[address]-49) cough Drug Allergy Active quinolones- cipro,tequin Hives Drug Allergy Active ENCOUNTERS from 1960 to 2020-05-10 Encounter Location Date Provider Diagnosis [address] [address] Apr, Peyton Avila DM w/o complication type II, uncontrolle d E11.65 ; [facility] (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 Z79.4 and Mixed hyperlipidemia E78.2 IMMUNIZATIONS Vaccine Route Administration Date Status Toradol [...] Education Language: Question Answer Notes Languages spoken: Iranian Samaritan: Question Answer Notes Samaritan 15 Pres[employer] Sexual Hx: Question Answer Notes [...] Notes Start Da te End Date Status Estradiol 0.1 MG/GM 1 gram Vaginal daily for 30 Days 2019 Active Sucralfate 1 GM 1 tab Orally Twice a day for 30 days Active Simethicone 80 MG 2 tablets after meals and at bedtime as needed Orally three times a day as needed for abdominal pain and distention for 30 Active Nebulizer Compressor 1 inh dx: J45.909 every 4 hours as needed f or 90 day(s) August, Active Ipratropium-Albuterol 0.5-2.5 (3) MG/3ML 3 ml Inhalati on every 6 hrs PRN for 30 days Dec, Active May have jerome wafers flating flanges ICD: v55.3 ( 56016 2 1/2 change as needed (Tatianna) Active Alcohol Prep Pad 70 % as directed E11.9 test blood sugar QID PRN for 30 Days Jun, Active Albuterol Sulfate HFA 108 (90 Base) MCG/ACT 2 puffs as needed Inhalation every 4 hrs prn for 30 Days Active Metoclopramide HCl 10 MG 1 tablet before meals and be dtime Orally three times daily before meals for 30 Days Jun, A ctive Zofran 4 MG/2ML 4 mg Injection BID at least 8h apart for 30 days Nov, Active Pen [place] 5/16" as directed subcutaneously Daily dx: E11.65 fo r 90 day(s) Jul, Active August [place] Bags (19332) ICD:v55.3 change as needed (Payton cao) for 30 day(s) Active Pedialyte bottle 330 ml Orally three times daily for 30 days Active Nystatin 538097 UNIT/GM APPLY TO AFFECTED AREA(S) AR OUND STOMA 2 TIMES A DAY DIRECTED UNTIL HEALED for 14 Act nba Dicyclomine HCl 10 MG 1 capsule Orally four times daily for 30 Days Active Sodium Chloride 0.9 % one application inside the R nostril every 2 hrs prn for 7 day(s) Mar, Active Victoza 18 MG/3ML 0.6mg daily x 1 week, theni ncreast to 1.2mg daily Subcutaneous Daily for 28 day(s) Mar, Active Hospital bed use daily as directed dx: K9 1.2, G89.4, G90.522, N81.84 for 99 days May, Active Mometasone Furoate 50 MCG/ACT 2 sprays in each nostril Nasally Once a day for 30 day(s) Mar, Active Mesalamine 1000 MG 1 suppository at bedtime Rectal Once a day fo r 30 day(s) Mar, Active Nebulizer/Tubing/Mouthpiece - as directed dx: J45.909 every 4 hours as needed for 90 day(s) August, Active Ciclopirox 8 % 1 application to the l 5th f ingernail Externally Once a day, clean off with an alcohol prep pad once a week for 90 day(s) Mar, Active Ammonium Lactate 12 % 1 application Externally Twice a day t o feet for 30 Days Jun, Active Doxycycline Monohydrate 100 MG 1 capsule Orally Twice a day for 10 day(s) Mar, Not-Taking Levemir Flex Touch 100 UNIT/ML 35 units Subcutaneous in the morning for 30 Days Jul, Active Lancets Misc. - One touch delica 33G lancets Dx: E11.65 four times daily as needed for 30 Days Jun, Active Amitriptyline HCl 50 MG as directed Orally 1 tab in am and 3 tabs at bedtime for 30 Days Active Baby Wipes 1 as directed topically prn dx:569.62 for 7 day(s) Active Doxycycline Hyclate 100 MG 1 tablet Orally bid for 7 days Mar, Not-Taking Glucometer testing 4 times a day and as needed Dx: E11/65 f or 30 days Jun, Active Syringe 2-3 ML 3 ML dx: r11.0 intramuscularly tid prn for 30 Day s Feb, Active Lactulose 20 GM/30ML 15 ml Orally three times daily for 30 Active Triamcinolone Acetonide 0.1 % apply a thin layer to re d areas on fingers Externally Twice a day for 30 Days Active Test Strips - - Dx: E11.65 four times daily as needed for 30 D ays Jun, Active Bentyl 10 MG 1 capsule Orally Four times a day prn abdominal cramping for 30 Days Active PROCEDURES No Information RESULTS No Results REASON FOR VISIT ccm dm MEDICAL (GENERAL) HISTORY Type Description Date Medical [...] small bowel resected and ventral hernia repairs ([place]) 06/2010 Surgical History Ileostomy-Tatianna 07/28/12 Surgical History [...] No Information FUNCTIONAL STATUS No Information ASSESSMENTS Encounter Date Diagnosis Assessment Notes Treatment Notes Treatm ent Clinical Notes Apr, DM w/o complication type II, uncontrolled (ICD-1 0 - E11.65) Apr, 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 (ICD-10 - Z79 .4) Apr, Mixed hyperlipidemia (ICD-10 - E78.2) PLAN OF TREATMENT Next Appt Details 4 Weeks Reason:06/07/2020 at 11 am Provider Name:Tutu Sanchez, 2020-04-15 9 01:30:00 PM, [address] [place] [address], [phone], Provider Name:Deann El, 2020-05-25 10 :00:00 AM, [address] [place] [address], [phone], Provider Name:Peyton Avila, 11:00:00 AM, [address] [place] [address], [phone], Provider Name:Deann El, 2020-06-26 10 :00:00 AM, [address] [place] [address], [phone], Follow Up:4 Weeks06/07/2020 at 11 am Insurance Providers Payer Name Payer Address Payer Phone Insured Name Patient Relati onship to Insured Coverage Start Date Coverage End Date [facility] [address] [facility] [phone] RUBA GRAFF,GLENN medina
--- OUTSIDE RECORDS SUMMARY | 2020-05-27 08:53 | CCD ---
Author Author [facility] Organization [facility] Address Unknown Phone Unavailable Care Team Providers Care Clothes Shaker Name Role Phone Tutu Sanchez Unavailable PROBLEMS Type Condition ICD9-CM Code [id number] Code Onset Dates Condition S tatus SNOMED Code Notes Problem 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 Active 26 692839 Problem Unspecified asthma J45.909 Active 560760327 Problem Complicated headache syndromes G44.59 Active 2 22604578 Problem Chronic nausea R11.0 Active 857173604 Problem Chronic maxillary sinusitis J32.0 Active 3592 3002 Problem History of abdominal surgery Z98.890 Active 161 138033 Problem Allergic rhinitis, unspecified seasonality, unspecifie d trigger J30.9 Active 75286940 Problem Internal hemorrhoids without mention of complication K64.8 Active 79131369 Problem Viral warts, unspecified B07.9 Active 7473079 3 Problem DM w/o complication type II, uncontrolled E11.65 Active 43816814 Problem Pelvic muscle wasting N81.84 Active 01119169 Problem Mixed hyperlipidemia E78.2 Active 487691495 Problem Anemia, chronic disease D63.8 Active 83720208 6 Problem Breast calcification seen on mammogram R92.1 A ctive 117983528 Problem Esophageal reflux K21.9 Active 998804191 Problem Chronic pain associated with significant psychos ocial dysfunction G89.4 Active 699376689 Problem Low back pain M54.5 Active 798436780 Problem Dysfunction of eustachian tube, bilateral H69.83 Active 09331872 Problem DM w/o complication type II E11.9 Active 3134 33123 Problem Fatty liver K76.0 Active 698856936 Problem Chronic prescription opiate use Z79.899 Active 063029428 Problem Occipital neuralgia M54.81 Active 13415637 Problem Multiple drug allergies Z88.9 Active 04977659 2 Problem correction (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 Z79.4 Activ e 642431158 Problem Myalgia M79.1 Active 30051454 Problem Granulomatous disorder of the skin and s ubcutaneous tissue, unspecified L92.9 Active 887652405 Problem Type 2 diabetes mellitus with stage 3 chronic kidney disea se E11.22 Active 95026285 Problem Hypomagnesemia E83.42 Active 302053831 Problem Ileostomy status Z93.2 Active 949370973 Problem Chronic kidney disease, stage III (moderate) N18.3 Active 010675367 Problem Complex regional pain syndrome I of left lower limb G90.522 Active 345037085 Problem Spinal cord stimulator status Z96.89 Active 12 8892433 Problem 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 Active 033496465 Problem Encounter for care related to vascular access port Z45.2 Active 143567029 Problem Myalgia, other site M79.18 Active 79887934 Problem Type 2 diabetes mellitus without complications E11 .9 Active 433023433 Problem Constipation, unspecified constipation type K59.00 Active 87685359 Problem Hypoglycemia E16.2 Active 305079885 Problem Left lower quadrant pain R10.32 Active 3563652 02 Problem Pseudogout M11.20 Active 855648110 Problem Flexural eczema L20.82 Active 88860899 Problem Falls frequently R29.6 Active 191081402 Problem Disorders of magnesium metabolism, unspecified E83 .40 Active 05668226 Problem Other chronic pain G89.29 Active 87005191 Problem Port catheter in place Z95.828 Active 663169942 Problem Grief F43.20 Active 490567788 Problem Cervicalgia M54.2 Active 00898941 Problem Rosacea L71.9 Active 416012014 Problem Vaginal atrophy N95.2 Active 721445510 Problem Incisional hernia with obstruction but no gangrene K43.0 Active 960437806 ALLERGIES Allergen (clinical drug ingredient) Drug/Non Drug Allergy do cumented on EMR Reaction Allergy Type Onset Date Status morphine Morphine Sulfate([facility] Code:[address]-51) severe h/a with big dose Drug Allergy Active codeine Codeine Sulfate([facility] Code:[address]-78) out of b vito experience Drug Allergy Active red food dye rash Non Drug Allergy Active Gastrografin([facility] Code:[address]-85) Onl y 1 bottle per test day (can not tolerate any more than 1 bottle) Drug Allergy Active tiagabine Gabitril([facility] Code:[address]-63) nervous Drug Allergy Active ketorolac Ketorolac Tromethamine([facility] Code:[address]-70) vomitin g Drug Allergy Active Vicodin Confusion Drug Allergy Active Penicillin (For Allergies Use Only) Hives Drug Allerg y Active sulfa Hives Drug Allergy Active Baclofen affected nervous syt Drug Allergy Ac tive promethazine Promethazine HCl([facility] Code:[address]-39) out of body experience Drug Allergy Active Readi-Cat Hives Drug Allergy Active iodine nerves, tight muscles Drug Allergy A ctive tizanidine Tizanidine HCl([facility] Code:[address]-84) Hives Drug All ergy Active droperidol Droperidol([facility] Code:[address]-11) out of body Drug Allerg y Active Latex (for allergy use only) difficulty Drug Allergy Active pregabalin Lyrica shakes, everything is black Drug Allergy Active azithromycin Azithromycin([facility] Code:[address]-62) hives Drug All ergy Active phenothiazines nervous system Drug Allergy Acti ve lorazepam Ativan([facility] Code:[address]-46) hallucinations Drug Allergy Active Oxycodone vomiting,hives Drug Allergy Active nitrofurantoin, macrocrystals / nitrofurantoin, monohy drate Macrobid([facility] Code:[address]-03) Hives, blurred vision Drug Allergy Active meperidine Meperidine HCl([facility] Code:[address]-70) out of dena dy experience Drug Allergy Active tramadol Tramadol([facility] Code:[address]-01) shakes Drug Allergy Active lidoderm (licocanine) heart races Drug Allergy Active gabapentin Gabapentin([facility] Code:[address]-15) nervous syste m,shakey Drug Allergy Active aspirin Aspirin([facility] Code:[address]-86) Hives Drug Allergy Active fentanyl Fentanyl([facility] Code:[address]-57) nervous Drug Allergy Active albuterol Albuterol Sulfate([facility] Code:[address]-85) cough Drug Allergy Active quinolones- cipro,tequin Hives Drug Allergy Active ENCOUNTERS from 1960 to 2020-05-11 Encounter Location Date Provider Diagnosis [address] [address] Apr, Tutu Sanchez IMMUNIZATIONS Vaccine Route Administration Date Status Toradol 60mg/2mL (Ketorolac) IM Intramuscular Jan 31, 2017 Ad ministered Toradol 60mg/2mL (Ketorolac) IM Intramuscular Feb 04, 2017 Ad ministered Toradol 60mg/2mL (Ketorolac) IM Intramuscular Feb 05, 2017 Ad ministered Toradol 60mg/2mL (Ketorolac) IM Intramuscular Feb 06, 2017 Ad ministered Toradol 60mg/2mL (Ketorolac) IM Intramuscular Feb 03, 2017 Ad ministered Toradol 60mg/2mL (Ketorolac) IM Intramuscular Jan 21, 2017 Ad ministered Toradol 60mg/2mL (Ketorolac) IM Intramuscular Jan 22, 2017 Ad ministered Toradol 60mg/2mL (Ketorolac) IM Intramuscular Jan 23, 2017 Ad ministered Influenza (6mo & up) Fluzone IM Intramuscular Jan 12, 2010 Ad ministered Pneumococcal Adult 0.5mL (Pneumovax 23) Unknown Jan 27, 2016 Administered TDAP Unknown September 13, 2009 Administered TD Adult 0.5mL (Tetanus) Unknown October 12, 2005 Adminis tered Influenza (6mo & up) Fluzone Unknown Jan [...] ministered Toradol 60mg/2mL (Ketorolac) IM Intramuscular Feb 18, 2017 Ad ministered Toradol 60mg/2mL (Ketorolac) IM Intramuscular Feb 19, 2017 Ad ministered Toradol 60mg/2mL (Ketorolac) IM Intramuscular Feb 20, 2017 Ad ministered Influenza (6mo & up) Fluzone IM Intramuscular Jan 20, 2015 Ad ministered Toradol 60mg/2mL (Ketorolac) IM Intramuscular July 21, 2017 Ad ministered Influenza (6mo & up) Fluzone IM Intramuscular Feb 03, 2017 Ad ministered Toradol 60mg/2mL (Ketorolac) IM Intramuscular July 22, 2017 Ad ministered Pneumococcal Adult 0.5mL (Pneumovax 23) IM Intramuscular September Administered Toradol 60mg/2mL (Ketorolac) IM Intramuscular July 23, 2017 Ad ministered Hepatitis A & B 1mL (Twinrix) IM Intramuscular Apr 15, 2012 A dministered Toradol 60mg/2mL (Ketorolac) IM Intramuscular Feb 21, 2017 Ad ministered Hepatitis A & B 1mL (Twinrix) IM Intramuscular October 02, 2011 A dministered Toradol 60mg/2mL (Ketorolac) IM Intramuscular Feb 24, 2017 Ad ministered Hepatitis A & B 1mL (Twinrix) IM Intramuscular Feb 11, 2012 A dministered Rocephin 1gm (Ceftriaxone) IM Intramuscular May 19, 2017 Admi nistered Pneumococcal Adult 0.5mL (Pneumovax 23) IM Intramuscular Feb 22, 2013 Administered Toradol 60mg/2mL (Ketorolac) IM Intramuscular July 14, 2017 Ad ministered Toradol 60mg/2mL (Ketorolac) IM Intramuscular Apr 22, 2016 Ad ministered Toradol 60mg/2mL (Ketorolac) IM Intramuscular Apr 26, 2016 Ad ministered Toradol 60mg/2mL (Ketorolac) IM Intramuscular May 01, 2016 Ad ministered Toradol 60mg/2mL (Ketorolac) IM Intramuscular August 27, 2017 Ad ministered Toradol 60mg/2mL (Ketorolac) IM Intramuscular September 03, 2017 Ad ministered Toradol 60mg/2mL (Ketorolac) IM Intramuscular September 04, 2017 Ad ministered Toradol 60mg/2mL (Ketorolac) IM Intramuscular September 05, 2017 Ad ministered Toradol 60mg/2mL (Ketorolac) [...] ministered Toradol 60mg/2mL (Ketorolac) IM Intramuscular September 10, [...] ministered Toradol 60mg/2mL (Ketorolac) IM Intramuscular Jan 10, 2017 Ad ministered Toradol 60mg/2mL (Ketorolac) IM Intramuscular October 06, 2018 Ad ministered Toradol 60mg/2mL (Ketorolac) IM Intramuscular September 26, 2017 Ad ministered Toradol 60mg/2mL (Ketorolac) IM Intramuscular Jan 20, 2017 Ad ministered Rocephin 1gm (Ceftriaxone) IM Intramuscular May 22, 2017 Admi nistered Rocephin 1gm (Ceftriaxone) IM Intramuscular Dec 15, 2015 Admi nistered Rocephin 1gm (Ceftriaxone) IM Intramuscular Dec 19, 2015 Admi nistered Rocephin 1gm (Ceftriaxone) IM Intramuscular Dec 20, 2015 Admi nistered Toradol 60mg/2mL (Ketorolac) IM Intramuscular Jan 09, 2017 Ad ministered Toradol 60mg/2mL (Ketorolac) IM Intramuscular July 30, 2019 Ad ministered Toradol 60mg/2mL (Ketorolac) IM Intramuscular Jan 08, 2017 Ad ministered Rocephin 1gm (Ceftriaxone) IM Intramuscular May 23, 2017 Admi nistered Toradol 60mg/2mL (Ketorolac) IM Intramuscular Jan 13, 2017 Ad ministered Rocephin 1gm (Ceftriaxone) IM Intramuscular May 20, 2017 Admi nistered Toradol 60mg/2mL (Ketorolac) IM Intramuscular Jan 17, 2017 Ad ministered Rocephin 1gm (Ceftriaxone) IM Intramuscular May 21, 2017 Admi nistered Rocephin 1gm (Ceftriaxone) IM Intramuscular Dec 21, 2015 Admi nistered Rocephin 1gm (Ceftriaxone) IM Intramuscular Dec 22, 2015 Admi nistered Rocephin 1gm (Ceftriaxone) IM Intramuscular Apr 26, 2016 Admi nistered Influenza (18 yrs & older) Flublok IM [...] Education Language: Question Answer Notes Languages spoken: Azeri Episcopal: Question Answer Notes Episcopal 15 Presbyterian Sexual Hx: Question Answer Notes [...] for 30 days Dec, Active May have flakita wafers flating flanges ICD: v55.3 ( 28441 2 1/2 change as needed (Tatianna) Active [...] apart for 30 days Nov, Active Pen [place] 08/27" as directed subcutaneously Daily dx: E11.65 fo r 90 day(s) Jul, Active August Flakita Bags (29126) ICD:v55.3 change as needed (Payton cao) for 30 day(s) Active Pedialyte bottle 330 ml Orally three times daily for 30 days Active Nystatin 918654 UNIT/GM APPLY TO AFFECTED AREA(S) AR OUND [...] 1.2, G89.4, G90.522, N81.84 for 99 days 19 Feb, 2020 Active Mometasone Furoate 50 MCG/ACT 2 sprays [...] Information RESULTS No Results REASON FOR VISIT need PA for Victoza, problem with Estradiol script MEDICAL (GENERAL) HISTORY Type Description Date Medical [...] Tatianna 06/26 Surgical History Hernia and stoma repair-[place]ian[place] 06/11 Surgical History perastomal hernia repair, with [...] Hospitalization History [facility] - small bowel obstruction 9 Hospitalization History [facility]-Short Gut Syndrome 06/29/19 Goals Section No Information Health Concerns No Information MEDICAL EQUIPMENT No Information MENTAL STATUS No Information FUNCTIONAL STATUS No Information ASSESSMENTS No Information PLAN OF TREATMENT Next Appt Details Provider Name:Tutu Sanchez, 2020-04-15 9 01:30:00 PM, [address] [place] [address], [phone], Provider Name:Deann El, 2020-05-25 10 :00:00 AM, [address] [place] [address], [phone], Provider Name:Peyton Avila, 11:00:00 AM, [address] [place] [address], [phone], Provider Name:Deann El, 2020-06-26 10 :00:00 AM, [address] [place] [address], [phone], Insurance Providers Payer Name Payer Address Payer Phone Insured Name Patient Relati onship to Insured Coverage Start Date Coverage End Date [facility] [address] [facility] [phone] RUBA GRAFF,GLENN medina
--- OUTSIDE RECORDS SUMMARY | 2020-05-27 08:53 | CCD ---
Author Author [facility] Organization [facility] Address Unknown Phone Unavailable Care Team Providers Care Document Control Assistant Name Role Phone Tutu Sanchez Unavailable PROBLEMS Type Condition ICD9-CM Code QPN63-ZS Code Onset Dates Condition S tatus SNOMED Code Notes Problem 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 Active 26 940042 Problem Unspecified asthma J45.909 Active 339690516 Problem Complicated headache syndromes G44.59 Active 2 31598301 Problem Chronic nausea R11.0 Active 011896411 Problem Chronic maxillary sinusitis J32.0 Active 3592 3002 Problem History of abdominal surgery Z98.890 Active 161 289273 Problem Allergic rhinitis, unspecified seasonality, unspecifie d trigger J30.9 Active 26482649 Problem Internal hemorrhoids without mention of complication K64.8 Active 09015537 Problem Viral warts, unspecified B07.9 Active 5384914 3 Problem DM w/o complication type II, uncontrolled E11.65 Active 80596532 Problem Pelvic muscle wasting N81.84 Active 09757208 Problem Mixed hyperlipidemia E78.2 Active 819793941 Problem Anemia, chronic disease D63.8 Active 69743041 6 Problem Breast calcification seen on mammogram R92.1 A ctive 677574690 Problem Esophageal reflux K21.9 Active 937400463 Problem Chronic pain associated with significant psychos ocial dysfunction G89.4 Active 429619438 Problem Low back pain M54.5 Active 823105235 Problem Dysfunction of eustachian tube, bilateral H69.83 Active 68013728 Problem DM w/o complication type II E11.9 Active 3134 41956 Problem Fatty liver K76.0 Active 060084567 Problem Chronic prescription opiate use Z79.899 Active 874663394 Problem Occipital neuralgia M54.81 Active 12226388 Problem Multiple drug allergies Z88.9 Active 01020358 2 Problem prison (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 Z79.4 Activ e 898669615 Problem Myalgia M79.1 Active 56355677 Problem Granulomatous disorder of the skin and s ubcutaneous tissue, unspecified L92.9 Active 022150580 Problem Type 2 diabetes mellitus with stage 3 chronic kidney disea se E11.22 Active 38999132 Problem Hypomagnesemia E83.42 Active 949819180 Problem Ileostomy status Z93.2 Active 109872609 Problem Chronic kidney disease, stage III (moderate) N18.3 Active 952448305 Problem Complex regional pain syndrome I of left lower limb G90.522 Active 181516509 Problem Spinal cord stimulator status Z96.89 Active 12 3805121 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 Active 273041561 Problem Encounter for care related to vascular access port Z45.2 Active 202572352 Problem Myalgia, other site M79.18 Active 43069679 Problem Type 2 diabetes mellitus without complications E11 .9 Active 038408955 Problem Constipation, unspecified constipation type K59.00 Active 86561005 Problem Hypoglycemia E16.2 Active 751919618 Problem Left lower quadrant pain R10.32 Active 2311691 02 Problem Pseudogout M11.20 Active 984757026 Problem Flexural eczema L20.82 Active 71608571 Problem Falls frequently R29.6 Active 161733309 Problem Disorders of magnesium metabolism, unspecified E83 .40 Active 87277252 Problem Other chronic pain G89.29 Active 36865534 Problem Port catheter in place Z95.828 Active 716414708 Problem Grief F43.20 Active 330170157 Problem Cervicalgia M54.2 Active 70783499 Problem Rosacea L71.9 Active 197807333 Problem Vaginal atrophy N95.2 Active 860504687 Problem Incisional hernia with obstruction but no gangrene K43.0 Active 050470270 ALLERGIES Allergen (clinical drug ingredient) Drug/Non Drug Allergy do cumented on EMR Reaction Allergy Type Onset Date Status morphine Morphine Sulfate([facility] Code:[address]-72) severe h/a with big dose Drug Allergy Active codeine Codeine Sulfate([facility] Code:[address]-86) out of b vito experience Drug Allergy Active red food dye rash Non Drug Allergy Active Gastrografin([facility] Code:[address]-81) Onl y 1 bottle per test day (can not tolerate any more than 1 bottle) Drug Allergy Active tiagabine Gabitril([facility] Code:[address]-25) nervous Drug Allergy Active ketorolac Ketorolac Tromethamine([facility] Code:[address]-52) vomitin g Drug Allergy Active Vicodin Confusion Drug Allergy Active Penicillin (For Allergies Use Only) Hives Drug Allerg y Active sulfa Hives Drug Allergy Active Baclofen affected nervous syt Drug Allergy Ac tive promethazine Promethazine HCl([facility] Code:[address]-13) out of body experience Drug Allergy Active Readi-Cat Hives Drug Allergy Active iodine nerves, tight muscles Drug Allergy A ctive tizanidine Tizanidine HCl([facility] Code:[address]-34) Hives Drug All ergy Active droperidol Droperidol([facility] Code:[address]-41) out of body Drug Allerg y Active Latex (for allergy use only) difficulty Drug Allergy Active pregabalin Lyrica shakes, everything is black Drug Allergy Active azithromycin Azithromycin([facility] Code:[address]-83) hives Drug All ergy Active phenothiazines nervous system Drug Allergy Acti ve lorazepam Ativan([facility] Code:[address]-96) hallucinations Drug Allergy Active Oxycodone vomiting,hives Drug Allergy Active nitrofurantoin, macrocrystals / nitrofurantoin, monohy drate Macrobid([facility] Code:[address]-97) Hives, blurred vision Drug Allergy Active meperidine Meperidine HCl([facility] Code:[address]-36) out of dena dy experience Drug Allergy Active tramadol Tramadol([facility] Code:[address]-51) shakes Drug Allergy Active lidoderm (licocanine) heart races Drug Allergy Active gabapentin Gabapentin([facility] Code:[address]-00) nervous syste m,shakey Drug Allergy Active aspirin Aspirin([facility] Code:[address]-28) Hives Drug Allergy Active fentanyl Fentanyl([facility] Code:[address]-42) nervous Drug Allergy Active albuterol Albuterol Sulfate([facility] Code:[address]-17) cough Drug Allergy Active quinolones- cipro,tequin Hives Drug Allergy Active ENCOUNTERS from 1960 to 2020-05-07 Encounter Location Date Provider Diagnosis [address] [address] Apr, Tutu Sanchez IMMUNIZATIONS Vaccine Route Administration [...] Education Language: Question Answer Notes Languages spoken: Mohawk Shinto: Question Answer Notes Shinto 15 [employer] Sexual Hx: Question Answer Notes [...] Notes Start Da te End Date Status Albuterol Sulfate HFA 108 (90 Base) MCG/ACT 2 puffs as needed Inhalation every 4 hrs prn for 30 Days Active Levemir Flex Touch 100 UNIT/ML 35 units Subcutaneous in the morning for 30 Days Jul, Active Nebulizer/Tubing/Mouthpiece - as directed dx: J45.909 every 4 hours as needed for 90 day(s) August, Active Pedialyte bottle 330 ml Orally three times daily for 30 days Active Zofran 4 MG/2ML 4 mg Injection BID at least 8h apart for 30 days Nov, Active Ammonium Lactate 12 % 1 application Externally Twice a day t o feet for 30 Days Jun, Active Doxycycline Monohydrate 100 MG 1 capsule Orally Twice a day for 10 day(s) Mar, Active Test Strips - - Dx: E11.65 four times daily as needed for 30 D ays Jun, Active Mometasone Furoate 50 MCG/ACT 2 sprays in each nostril Nasally Once a day for 30 day(s) Mar, Active Victoza 18 MG/3ML 0.6mg daily x 1 week, theni ncreast to 1.2mg daily Subcutaneous Daily for 28 day(s) Mar, Active Amitriptyline HCl 50 MG as directed Orally 1 tab in am and 3 tabs at bedtime for 30 Days Active Nebulizer Compressor 1 inh dx: J45.909 every 4 hours as needed f or 90 day(s) August, Active Mesalamine 1000 MG 1 suppository at bedtime Rectal Once a day fo r 30 day(s) Mar, Active Simethicone 80 MG 2 tablets after meals and at bedtime as needed Orally three times a day as needed for abdominal pain and distention for 30 Active Doxycycline Hyclate 100 MG 1 tablet Orally bid for 7 days Mar, Not-Taking Nystatin 641563 UNIT/GM APPLY TO AFFECTED AREA(S) AR OUND STOMA 2 TIMES A DAY DIRECTED UNTIL HEALED for 14 Act nba Triamcinolone Acetonide 0.1 % apply a thin layer to re d areas on fingers Externally Twice a day for 30 Days Active Sucralfate 1 GM 1 tab Orally Twice a day for 30 days Active Hospital bed use daily as directed dx: K9 1.2, G89.4, G90.522, N81.84 for 99 days May, Active Sodium Chloride 0.9 % one application inside the R nostril every 2 hrs prn for 7 day(s) Mar, Active Ipratropium-Albuterol 0.5-2.5 (3) MG/3ML 3 ml Inhalati on every 6 hrs PRN for 30 days Dec, Active Lactulose 20 GM/30ML 15 ml Orally three times daily for 30 Active Ciclopirox 8 % 1 application to the l 5th f ingernail Externally Once a day, clean off with an alcohol prep pad once a week for 90 day(s) Mar, Active Pen [place] /16" as directed subcutaneously Daily dx: E11.65 fo r 90 day(s) Jul, Active Estradiol 0.1 MG/GM 1 gram Vaginal daily for 30 Days 2019 Active Alcohol Prep Pad 70 % as directed E11.9 test blood sugar QID PRN for 30 Days Jun, Active Bentyl 10 MG 1 capsule Orally Four times a day prn abdominal cramping for 30 Days Active Baby Wipes 1 as directed topically prn dx:569.62 for 7 day(s) Active Dicyclomine HCl 10 MG 1 capsule Orally four times daily for 30 Days Active Glucometer testing 4 times a day and as needed Dx: E11/65 f or 30 days Jun, Active Syringe 2-3 ML 3 ML dx: r11.0 intramuscularly tid prn for 30 Day s Feb, Active Lancets Misc. - One touch delica 33G lancets Dx: E11.65 four times daily as needed for 30 Days Jun, Active Metoclopramide HCl 10 MG 1 tablet before meals and be dtime Orally three times daily before meals for 30 Days Jun, A ctive May Flakita Bags (84657) ICD:v55.3 change as needed (Payton cao) for 30 day(s) Active May have flakita wafers flating flanges ICD: v55.3 ( 30671 2 1/2 change as needed (Tatianna) Active PROCEDURES No Information RESULTS No Results REASON FOR VISIT estradiol cream MEDICAL (GENERAL) HISTORY Type Description Date Medical [...] small bowel resected and ventral hernia repairs ([place]) 06/2010 Surgical History Ileostomy-Tatianna 07/28/12 Surgical History [...] Information ASSESSMENTS No Information PLAN OF TREATMENT Medication Medication Name Sig Start Date Stop Date Victoza 18 MG/3ML 0.6mg daily x 1 week, theni ncreast to 1.2mg daily Subcutaneous Daily for 28 day(s) Mar, Metoclopramide HCl 10 MG 1 tablet before meals and be dtime Orally three times daily before meals for 30 Days Jun, Simethicone 80 MG 2 tablets after meals and at bedtime as needed Orally three times a day as needed for abdominal pain and distention for 30 Nystatin 945307 UNIT/GM APPLY TO AFFECTED AREA(S) AR OUND STOMA 2 TIMES A DAY DIRECTED UNTIL HEALED for 14 Doxycycline Monohydrate 100 MG 1 capsule Orally Twice a day for 10 day(s) Mar, Mometasone Furoate 50 MCG/ACT 2 sprays in each nostril Nasally Once a day for 30 day(s) Mar, Ammonium Lactate 12 % 1 application Externally Twice a day t o feet for 30 Days Jun, Lactulose 20 GM/30ML 15 ml Orally three times daily for 30 Estradiol 0.1 MG/GM 1 gram Vaginal daily for 30 Days Oct, 0 Mesalamine 1000 MG 1 suppository at bedtime Rectal Once a d ay for 30 day(s) Mar, Levemir Flex Touch 100 UNIT/ML 35 units Subcutaneous in the morning for 30 Days Jul, Next Appt Details Provider Name:Peyton Avila, 10:00:00 AM, [address] [place] [address], [phone], Provider Name:Tutu Sanchez, 2020-04-15 9 01:30:00 PM, [address] [place] [address], [phone], Provider Name:Deann El, 2020-05-25 10 :00:00 AM, [address] [place] [address], [phone], Provider Name:Deann El, 2020-06-26 10 :00:00 AM, [address] [place] [address], [phone], Insurance Providers Payer Name Payer Address Payer Phone Insured Name Patient Relati onship to Insured Coverage Start Date Coverage End Date [facility] [address] [facility] [id number] RUBA GRAFF,GLENN COOPER self
--- OUTSIDE RECORDS SUMMARY | 2020-05-27 08:53 | CCD ---
Author Author [facility] Organization [facility] Address Unknown Phone Unavailable Care Team Providers Care Account Specialist Name Role Phone Deann El Unavailable PROBLEMS Type Condition ICD9-CM Code NFF83-LA Code Onset Dates Condition S tatus SNOMED Code Notes Problem 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 Active 26 705824 Problem Unspecified asthma J45.909 Active 508030258 Problem Complicated headache syndromes G44.59 Active 2 27564359 Problem Chronic nausea R11.0 Active 154653665 Problem Chronic maxillary sinusitis J32.0 Active 3592 3002 Problem History of abdominal surgery Z98.890 Active 161 152525 Problem Allergic rhinitis, unspecified seasonality, unspecifie d trigger J30.9 Active 03905606 Problem Internal hemorrhoids without mention of complication K64.8 Active 44657427 Problem Viral warts, unspecified B07.9 Active 1397041 3 Problem DM w/o complication type II, uncontrolled E11.65 Active 06265446 Problem Pelvic muscle wasting N81.84 Active 15305771 Problem Mixed hyperlipidemia E78.2 Active 660856686 Problem Anemia, chronic disease D63.8 Active 19664169 6 Problem Breast calcification seen on mammogram R92.1 A ctive 738210058 Problem Esophageal reflux K21.9 Active 286028128 Problem Chronic pain associated with significant psychos ocial dysfunction G89.4 Active 455765796 Problem Low back pain M54.5 Active 330793127 Problem Dysfunction of eustachian tube, bilateral H69.83 Active 93075731 Problem DM w/o complication type II E11.9 Active 3132 19191 Problem Fatty liver K76.0 Active 460186091 Problem Chronic prescription opiate use Z79.899 Active 967016826 Problem Occipital neuralgia M54.81 Active 30662345 Problem Multiple drug allergies Z88.9 Active 61075480 2 Problem halfway (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 Z79.4 Activ e 356917153 Problem Myalgia M79.1 Active 69405301 Problem Granulomatous disorder of the skin and s ubcutaneous tissue, unspecified L92.9 Active 209944820 Problem Type 2 diabetes mellitus with stage 3 chronic kidney disea se E11.22 Active 46535830 Problem Hypomagnesemia E83.42 Active 641869431 Problem Ileostomy status Z93.2 Active 592033404 Problem Chronic kidney disease, stage III (moderate) N18.3 Active 667003303 Problem Complex regional pain syndrome I of left lower limb G90.522 Active 332305417 Problem Spinal cord stimulator status Z96.89 Active 12 6276328 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 Active 304943028 Problem Encounter for care related to vascular access port Z45.2 Active 177569461 Problem Myalgia, other site M79.18 Active 57119130 Problem Type 2 diabetes mellitus without complications E11 .9 Active 929072444 Problem Constipation, unspecified constipation type K59.00 Active 72249893 Problem Hypoglycemia E16.2 Active 189373951 Problem Left lower quadrant pain R10.32 Active 3278571 02 Problem Pseudogout M11.20 Active 520255577 Problem Flexural eczema L20.82 Active 19877191 Problem Falls frequently R29.6 Active 775548471 Problem Disorders of magnesium metabolism, unspecified E83 .40 Active 17905925 Problem Other chronic pain G89.29 Active 94742470 Problem Port catheter in place Z95.828 Active 707701424 Problem Grief F43.20 Active 726470383 Problem Cervicalgia M54.2 Active 51184770 Problem Rosacea L71.9 Active 622082652 Problem Vaginal atrophy N95.2 Active 413287883 Problem Incisional hernia with obstruction but no gangrene K43.0 Active 395011627 ALLERGIES Allergen (clinical drug ingredient) Drug/Non Drug Allergy do cumented on EMR Reaction Allergy Type Onset Date Status morphine Morphine Sulfate([facility] Code:[address]-46) severe h/a with big dose Drug Allergy Active codeine Codeine Sulfate([facility] Code:[address]-22) out of b vito experience Drug Allergy Active red food dye rash Non Drug Allergy Active Gastrografin([facility] Code:[address]-56) Onl y 1 bottle per test day (can not tolerate any more than 1 bottle) Drug Allergy Active tiagabine Gabitril([facility] Code:[address]-15) nervous Drug Allergy Active ketorolac Ketorolac Tromethamine([facility] Code:[address]-13) vomitin g Drug Allergy Active Vicodin Confusion Drug Allergy Active Penicillin (For Allergies Use Only) Hives Drug Allerg y Active sulfa Hives Drug Allergy Active Baclofen affected nervous syt Drug Allergy Ac tive promethazine Promethazine HCl([facility] Code:[address]-47) out of body experience Drug Allergy Active Readi-Cat Hives Drug Allergy Active iodine nerves, tight muscles Drug Allergy A ctive tizanidine Tizanidine HCl([facility] Code:[address]-57) Hives Drug All ergy Active droperidol Droperidol([facility] Code:[address]-50) out of body Drug Allerg y Active Latex (for allergy use only) difficulty Drug Allergy Active pregabalin Lyrica shakes, everything is black Drug Allergy Active azithromycin Azithromycin([facility] Code:[address]-90) hives Drug All ergy Active phenothiazines nervous system Drug Allergy Acti ve lorazepam Ativan([facility] Code:[address]-93) hallucinations Drug Allergy Active Oxycodone vomiting,hives Drug Allergy Active nitrofurantoin, macrocrystals / nitrofurantoin, monohy drate Macrobid([facility] Code:[address]-02) Hives, blurred vision Drug Allergy Active meperidine Meperidine HCl([facility] Code:[address]-51) out of dena dy experience Drug Allergy Active tramadol Tramadol([facility] Code:[address]-04) shakes Drug Allergy Active lidoderm (licocanine) heart races Drug Allergy Active gabapentin Gabapentin([facility] Code:[address]-77) nervous syste m,shakey Drug Allergy Active aspirin Aspirin([facility] Code:[address]-35) Hives Drug Allergy Active fentanyl Fentanyl([facility] Code:[address]-58) nervous Drug Allergy Active albuterol Albuterol Sulfate([facility] Code:[address]-97) cough Drug Allergy Active quinolones- cipro,tequin Hives Drug Allergy Active ENCOUNTERS from 1960 to 2020-05-05 Encounter Location Date Provider Diagnosis [facility] [address] [place] [address] Apr, Deann El IMMUNIZATIONS Vaccine Route Administration Date Status Toradol [...] Education Language: Question Answer Notes Languages spoken: Divehi Voodoo: Question Answer Notes Voodoo 15 [employer] Sexual Hx: Question Answer Notes [...] bid for 7 days Mar, Not-Taking Nystatin 555980 UNIT/GM APPLY TO AFFECTED AREA(S) AR OUND [...] week for 90 day(s) Mar, Active Pen [place] /16" as directed subcutaneously Daily dx: E11.65 [...] Days Jun, A ctive May Flakita Bags (81538) ICD:v55.3 change as needed (Payton cao) for 30 day(s) Active May have flakita wafers flating flanges ICD: v55.3 ( 49774 2 1/2 change as needed (Tatianna) Active PROCEDURES No Information RESULTS No Results REASON FOR VISIT SOONER APPT MEDICAL (GENERAL) HISTORY Type Description Date Medical [...] small bowel resected and ventral hernia repairs ([place]) 06/2010 Surgical History Ileostomy-Tatianna 07/28/12 Surgical History [...] abdominal pain and distention for 30 Nystatin 280096 UNIT/GM APPLY TO AFFECTED AREA(S) AR OUND [...] Appt Details Provider Name:Peyton Avila, 10:00:00 AM, [address] [place] [address], [phone], Provider Name:Tutu Sanchez, 2020-04-15 9 01:30:00 PM, [address] [place] [address], [phone], Provider Name:Deann El, 2020-05-25 10 :00:00 AM, [address] [place] [address], [phone], Provider Name:Deann El, 2020-06-26 10 :00:00 AM, [address] [place] [address], [phone], Insurance Providers Payer Name Payer Address Payer Phone Insured Name Patient Relati onship to Insured Coverage Start Date Coverage End Date [facility] [address] [facility] [id number] RUBA GRAFF,GLENN COOPER self
--- OUTSIDE RECORDS SUMMARY | 2020-05-27 08:53 | CCD ---
Author Author [facility] Organization [facility] Address Unknown Phone Unavailable Care Team Providers Care Die Engraver Name Role Phone Tutu Sanchez Unavailable PROBLEMS Type Condition ICD9-CM Code [id number] Code Onset Dates Condition S tatus SNOMED Code Notes Problem 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 Active 26 529763 Problem Unspecified asthma J45.909 Active 915270779 Problem Complicated headache syndromes G44.59 Active 2 45924359 Problem Chronic nausea R11.0 Active 796265750 Problem Chronic maxillary sinusitis J32.0 Active 3592 3002 Problem History of abdominal surgery Z98.890 Active 161 774078 Problem Allergic rhinitis, unspecified seasonality, unspecifie d trigger J30.9 Active 62976501 Problem Internal hemorrhoids without mention of complication K64.8 Active 96642674 Problem Viral warts, unspecified B07.9 Active 1982774 3 Problem DM w/o complication type II, uncontrolled E11.65 Active 44378114 Problem Pelvic muscle wasting N81.84 Active 19701613 Problem Mixed hyperlipidemia E78.2 Active 649502753 Problem Anemia, chronic disease D63.8 Active 89297574 6 Problem Breast calcification seen on mammogram R92.1 A ctive 237162607 Problem Esophageal reflux K21.9 Active 642254418 Problem Chronic pain associated with significant psychos ocial dysfunction G89.4 Active 104452964 Problem Low back pain M54.5 Active 202517806 Problem Dysfunction of eustachian tube, bilateral H69.83 Active 13516022 Problem DM w/o complication type II E11.9 Active 3134 81141 Problem Fatty liver K76.0 Active 831487162 Problem Chronic prescription opiate use Z79.899 Active 704618347 Problem Occipital neuralgia M54.81 Active 38380722 Problem Multiple drug allergies Z88.9 Active 98433352 2 Problem correction (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 Z79.4 Activ e 464576199 Problem Myalgia M79.1 Active 08993062 Problem Granulomatous disorder of the skin and s ubcutaneous tissue, unspecified L92.9 Active 777076745 Problem Type 2 diabetes mellitus with stage 3 chronic kidney disea se E11.22 Active 49310218 Problem Hypomagnesemia E83.42 Active 966259806 Problem Ileostomy status Z93.2 Active 384927054 Problem Chronic kidney disease, stage III (moderate) N18.3 Active 867976913 Problem Complex regional pain syndrome I of left lower limb G90.522 Active 003580316 Problem Spinal cord stimulator status Z96.89 Active 12 4014789 Problem supervisor intermediates current use of insulin Z79.4 Active 817480296 Problem Encounter for care related to vascular access port Z45.2 Active 561903066 Problem Myalgia, other site M79.18 Active 73762979 Problem Type 2 diabetes mellitus without complications E11 .9 Active 750470182 Problem Constipation, unspecified constipation type K59.00 Active 00343675 Problem Hypoglycemia E16.2 Active 777623653 Problem Left lower quadrant pain R10.32 Active 0557258 02 Problem Pseudogout M11.20 Active 294176003 Problem Flexural eczema L20.82 Active 61852245 Problem Falls frequently R29.6 Active 970752209 Problem Disorders of magnesium metabolism, unspecified E83 .40 Active 14623137 Problem Other chronic pain G89.29 Active 95512927 Problem Port catheter in place Z95.828 Active 935905319 Problem Grief F43.20 Active 234033445 Problem Cervicalgia M54.2 Active 44258420 Problem Rosacea L71.9 Active 255637100 Problem Vaginal atrophy N95.2 Active 687686070 Problem Incisional hernia with obstruction but no gangrene K43.0 Active 352119008 ALLERGIES Allergen (clinical drug ingredient) Drug/Non Drug Allergy do cumented on EMR Reaction Allergy Type Onset Date Status morphine Morphine Sulfate([facility] Code:[address]-49) severe h/a with big dose Drug Allergy Active codeine Codeine Sulfate([facility] Code:[address]-23) out of b vito experience Drug Allergy Active red food dye rash Non Drug Allergy Active Gastrografin([facility] Code:[address]-78) Onl y 1 bottle per test day (can not tolerate any more than 1 bottle) Drug Allergy Active tiagabine Gabitril([facility] Code:[address]-23) nervous Drug Allergy Active ketorolac Ketorolac Tromethamine([facility] Code:[address]-63) vomitin g Drug Allergy Active Vicodin Confusion Drug Allergy Active Penicillin (For Allergies Use Only) Hives Drug Allerg y Active sulfa Hives Drug Allergy Active Baclofen affected nervous syt Drug Allergy Ac tive promethazine Promethazine HCl([facility] Code:[address]-28) out of body experience Drug Allergy Active Readi-Cat Hives Drug Allergy Active iodine nerves, tight muscles Drug Allergy A ctive tizanidine Tizanidine HCl([facility] Code:[address]-92) Hives Drug All ergy Active droperidol Droperidol([facility] Code:[address]-20) out of body Drug Allerg y Active Latex (for allergy use only) difficulty Drug Allergy Active pregabalin Lyrica shakes, everything is black Drug Allergy Active azithromycin Azithromycin([facility] Code:[address]-64) hives Drug All ergy Active phenothiazines nervous system Drug Allergy Acti ve lorazepam Ativan([facility] Code:[address]-61) hallucinations Drug Allergy Active Oxycodone vomiting,hives Drug Allergy Active nitrofurantoin, macrocrystals / nitrofurantoin, monohy drate Macrobid([facility] Code:[address]-01) Hives, blurred vision Drug Allergy Active meperidine Meperidine HCl([facility] Code:[address]-85) out of dena dy experience Drug Allergy Active tramadol Tramadol([facility] Code:[address]-71) shakes Drug Allergy Active lidoderm (licocanine) heart races Drug Allergy Active gabapentin Gabapentin([facility] Code:[address]-85) nervous syste m,shakey Drug Allergy Active aspirin Aspirin([facility] Code:[address]-90) Hives Drug Allergy Active fentanyl Fentanyl([facility] Code:[address]-81) nervous Drug Allergy Active albuterol Albuterol Sulfate([facility] Code:[address]-17) cough Drug Allergy Active quinolones- cipro,tequin Hives Drug Allergy Active ENCOUNTERS from 1960 to 2020-05-10 Encounter Location Date Provider Diagnosis [address] [address] Apr, Tutu Sanchez IMMUNIZATIONS Vaccine Route Administration [...] Education Language: Question Answer Notes Languages spoken: Swedish Quaker: 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 [employer] Sexual Hx: Question Answer Notes [...] flakita wafers flating flanges ICD: v55.3 ( 95918 2 1/2 change as needed ([place]ianna) Active [...] apart for 30 days Nov, Active Pen [place] 08/27" as directed subcutaneously Daily dx: E11.65 fo r 90 day(s) Jul, Active August Flakita Bags (58058) ICD:v55.3 change as needed ([place] cao) for 30 day(s) Active Pedialyte bottle 330 ml Orally three times daily for 30 days Active Nystatin 309293 UNIT/GM APPLY TO AFFECTED AREA(S) AR OUND [...] Information RESULTS No Results REASON FOR VISIT ELIEL Victoza 18mg/3mL pen MEDICAL (GENERAL) HISTORY Type Description Date Medical [...] Provider Name:Tutu Sanchez, 2020-04-15 9 01:30:00 PM, [address] [place] [address], [phone], Provider Name:Deann El, 2020-05-25 10 :00:00 AM, [address] [place] [address], [phone], Provider Name:Peytno Avila, 11:00:00 AM, [address] [place] [address], [phone], Provider Name:Deann El, 2020-06-26 10 :00:00 AM, [address] [place] [address], [phone], Insurance Providers Payer Name Payer Address Payer Phone Insured Name Patient Relati onship to Insured Coverage Start Date Coverage End Date [facility] [address] [facility] [address] RUBA GRAFF,GLENN medina
--- OUTSIDE RECORDS SUMMARY | 2020-05-27 08:53 | CCD ---
Author Author [facility] Organization [facility] Address Unknown Phone Unavailable Care Team Providers Care Woods Rider Name Role Phone Tutu Sanchez Unavailable PROBLEMS Type Condition ICD9-CM Code [id number] Code Onset Dates Condition S tatus SNOMED Code Notes Problem 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 Active 26 393765 Problem Unspecified asthma J45.909 Active 879865035 Problem Complicated headache syndromes G44.59 Active 2 76762899 Problem Chronic nausea R11.0 Active 694054279 Problem Chronic maxillary sinusitis J32.0 Active 3592 3002 Problem History of abdominal surgery Z98.890 Active 161 689751 Problem Allergic rhinitis, unspecified seasonality, unspecifie d trigger J30.9 Active 79550003 Problem Internal hemorrhoids without mention of complication K64.8 Active 94288921 Problem Viral warts, unspecified B07.9 Active 6350388 3 Problem DM w/o complication type II, uncontrolled E11.65 Active 73952296 Problem Pelvic muscle wasting N81.84 Active 30163577 Problem Mixed hyperlipidemia E78.2 Active 183094217 Problem Anemia, chronic disease D63.8 Active 95043861 6 Problem Breast calcification seen on mammogram R92.1 A ctive 018232702 Problem Esophageal reflux K21.9 Active 643194482 Problem Chronic pain associated with significant psychos ocial dysfunction G89.4 Active 262506953 Problem Low back pain M54.5 Active 040921127 Problem Dysfunction of eustachian tube, bilateral H69.83 Active 49983382 Problem DM w/o complication type II E11.9 Active 3134 07816 Problem Fatty liver K76.0 Active 282718038 Problem Chronic prescription opiate use Z79.899 Active 266369820 Problem Occipital neuralgia M54.81 Active 34519997 Problem Multiple drug allergies Z88.9 Active 24915061 2 Problem half-way (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 Z79.4 Activ e 266213263 Problem Myalgia M79.1 Active 81690409 Problem Granulomatous disorder of the skin and s ubcutaneous tissue, unspecified L92.9 Active 115910963 Problem Type 2 diabetes mellitus with stage 3 chronic kidney disea se E11.22 Active 43100323 Problem Hypomagnesemia E83.42 Active 468195974 Problem Ileostomy status Z93.2 Active 526678138 Problem Chronic kidney disease, stage III (moderate) N18.3 Active 367561502 Problem Complex regional pain syndrome I of left lower limb G90.522 Active 547899661 Problem Spinal cord stimulator status Z96.89 Active 12 1529663 Problem long term care administrator current use of insulin Z79.4 Active 912841790 Problem Encounter for care related to vascular access port Z45.2 Active 754985591 Problem Myalgia, other site M79.18 Active 97841282 Problem Type 2 diabetes mellitus without complications E11 .9 Active 421361340 Problem Constipation, unspecified constipation type K59.00 Active 83331417 Problem Hypoglycemia E16.2 Active 821152737 Problem Left lower quadrant pain R10.32 Active 8219763 02 Problem Pseudogout M11.20 Active 608803796 Problem Flexural eczema L20.82 Active 14213445 Problem Falls frequently R29.6 Active 987059772 Problem Disorders of magnesium metabolism, unspecified E83 .40 Active 06294320 Problem Other chronic pain G89.29 Active 33825309 Problem Port catheter in place Z95.828 Active 942499989 Problem Grief F43.20 Active 460722620 Problem Cervicalgia M54.2 Active 41620629 Problem Rosacea L71.9 Active 906397416 Problem Vaginal atrophy N95.2 Active 231966698 Problem Incisional hernia with obstruction but no gangrene K43.0 Active 988117194 ALLERGIES Allergen (clinical drug ingredient) Drug/Non Drug Allergy do cumented on EMR Reaction Allergy Type Onset Date Status morphine Morphine Sulfate([facility] Code:[address]-64) severe h/a with big dose Drug Allergy Active codeine Codeine Sulfate([facility] Code:[address]-19) out of b vito experience Drug Allergy Active red food dye rash Non Drug Allergy Active Gastrografin([facility] Code:[address]-95) Onl y 1 bottle per test day (can not tolerate any more than 1 bottle) Drug Allergy Active tiagabine Gabitril([facility] Code:[address]-47) nervous Drug Allergy Active ketorolac Ketorolac Tromethamine([facility] Code:[address]-47) vomitin g Drug Allergy Active Vicodin Confusion Drug Allergy Active Penicillin (For Allergies Use Only) Hives Drug Allerg y Active sulfa Hives Drug Allergy Active Baclofen affected nervous syt Drug Allergy Ac tive promethazine Promethazine HCl([facility] Code:[address]-87) out of body experience Drug Allergy Active Readi-Cat Hives Drug Allergy Active iodine nerves, tight muscles Drug Allergy A ctive tizanidine Tizanidine HCl([facility] Code:[address]-82) Hives Drug All ergy Active droperidol Droperidol([facility] Code:[address]-75) out of body Drug Allerg y Active Latex (for allergy use only) difficulty Drug Allergy Active pregabalin Lyrica shakes, everything is black Drug Allergy Active azithromycin Azithromycin([facility] Code:[address]-10) hives Drug All ergy Active phenothiazines nervous system Drug Allergy Acti ve lorazepam Ativan([facility] Code:[address]-95) hallucinations Drug Allergy Active Oxycodone vomiting,hives Drug Allergy Active nitrofurantoin, macrocrystals / nitrofurantoin, monohy drate Macrobid([facility] Code:[address]-63) Hives, blurred vision Drug Allergy Active meperidine Meperidine HCl([facility] Code:[address]-04) out of dena dy experience Drug Allergy Active tramadol Tramadol([facility] Code:[address]-41) shakes Drug Allergy Active lidoderm (licocanine) heart races Drug Allergy Active gabapentin Gabapentin([facility] Code:[address]-14) nervous syste m,shakey Drug Allergy Active aspirin Aspirin([facility] Code:[address]-34) Hives Drug Allergy Active fentanyl Fentanyl([facility] Code:[address]-58) nervous Drug Allergy Active albuterol Albuterol Sulfate([facility] Code:[address]-74) cough Drug Allergy Active quinolones- cipro,tequin Hives Drug Allergy Active ENCOUNTERS from 1960 to 2020-05-12 Encounter Location Date Provider Diagnosis [address] [address] Apr, Tutu Sanchez IMMUNIZATIONS Vaccine Route Administration Date Status Toradol 60mg/2mL (Ketorolac) IM Intramuscular Feb 20, [...] IM Intramuscular Feb 19, 2017 Ad ministered Influenza (6mo & up) [...] IM Intramuscular July 21, 2017 Ad ministered Toradol 60mg/2mL (Ketorolac) IM Intramuscular July 22, 2017 Ad ministered Toradol 60mg/2mL (Ketorolac) IM Intramuscular July 23, 2017 Ad ministered Hepatitis A & B 1mL (Twinrix) IM Intramuscular Feb 11, 2012 A dministered Rocephin 1gm (Ceftriaxone) IM Intramuscular Dec 15, 2015 Admi nistered Hepatitis A & B 1mL (Twinrix) IM Intramuscular Apr 15, 2012 A dministered Rocephin 1gm (Ceftriaxone) IM Intramuscular Dec 19, 2015 Admi nistered Pneumococcal Adult 0.5mL (Pneumovax 23) IM Intramuscular Feb 22, 2013 Administered Rocephin 1gm (Ceftriaxone) IM Intramuscular Dec 20, 2015 Admi nistered Toradol 60mg/2mL (Ketorolac) IM Intramuscular Apr 22, 2016 Ad ministered Toradol 60mg/2mL (Ketorolac) IM Intramuscular August 27, 2017 Ad ministered TDAP Unknown September 13, 2009 Administered Toradol 60mg/2mL (Ketorolac) IM Intramuscular September 03, 2017 Ad ministered Pneumococcal Adult 0.5mL (Pneumovax 23) Unknown Jan 27, 2016 Administered Toradol 60mg/2mL (Ketorolac) IM Intramuscular September 04, 2017 Ad ministered Hepatitis A & B 1mL (Twinrix) IM Intramuscular October 02, 2011 A dministered Toradol 60mg/2mL (Ketorolac) IM Intramuscular September 05, 2017 Ad ministered Toradol 60mg/2mL (Ketorolac) IM Intramuscular Apr 26, 2016 Ad ministered Toradol 60mg/2mL (Ketorolac) IM Intramuscular May 01, 2016 Ad ministered Toradol 60mg/2mL (Ketorolac) IM Intramuscular May 03, 2016 Ad ministered Rocephin 1gm (Ceftriaxone) IM Intramuscular Dec 21, 2015 Admi nistered Rocephin 1gm (Ceftriaxone) IM Intramuscular Dec 22, 2015 Admi nistered Rocephin 1gm (Ceftriaxone) IM Intramuscular Apr 26, 2016 Admi nistered Rocephin 1gm (Ceftriaxone) IM Intramuscular May 23, 2017 Admi nistered Pneumococcal Adult 0.5mL (Pneumovax 23) IM Intramuscular September Administered Toradol 60mg/2mL (Ketorolac) IM Intramuscular September 10, 2017 Ad ministered Toradol 60mg/2mL (Ketorolac) IM Intramuscular Dec 27, 2016 Ad ministered Toradol 60mg/2mL (Ketorolac) IM Intramuscular September 09, 2017 Ad ministered Toradol 60mg/2mL (Ketorolac) IM Intramuscular Dec 12, 2016 Ad ministered Toradol 60mg/2mL (Ketorolac) IM Intramuscular Dec 23, 2016 Ad ministered Toradol 60mg/2mL (Ketorolac) IM Intramuscular May 07, 2016 Ad ministered Rocephin 1gm (Ceftriaxone) IM Intramuscular May 19, 2017 Admi nistered Toradol 60mg/2mL (Ketorolac) IM Intramuscular May 28, 2016 Ad ministered Rocephin 1gm (Ceftriaxone) IM Intramuscular May 20, 2017 Admi nistered Toradol 60mg/2mL (Ketorolac) IM Intramuscular July 18, 2016 Ad ministered Rocephin 1gm (Ceftriaxone) IM Intramuscular May 21, 2017 Admi nistered Toradol 60mg/2mL (Ketorolac) IM Intramuscular Dec 09, 2016 Ad ministered Rocephin 1gm (Ceftriaxone) IM Intramuscular May 22, 2017 Admi nistered Toradol 60mg/2mL (Ketorolac) IM Intramuscular Dec 30, [...] IM Intramuscular Jan 20, 2017 Ad ministered Toradol 60mg/2mL (Ketorolac) IM Intramuscular Jan 21, 2017 Ad ministered Toradol 60mg/2mL (Ketorolac) IM Intramuscular Jan 22, 2017 Ad ministered Toradol 60mg/2mL (Ketorolac) IM Intramuscular Jan 09, 2017 Ad ministered Influenza (18 yrs & older) Flublok IM Intramuscular Jan 23, 2018 Administered Toradol 60mg/2mL (Ketorolac) IM Intramuscular Jan 08, 2017 Ad ministered Toradol 60mg/2mL (Ketorolac) IM Intramuscular September 25, 2018 Ad ministered Toradol 60mg/2mL (Ketorolac) IM Intramuscular Jan 13, 2017 Ad ministered Toradol 60mg/2mL (Ketorolac) IM Intramuscular October 05, 2018 Ad ministered Toradol 60mg/2mL (Ketorolac) IM Intramuscular Feb 03, 2017 Ad ministered Toradol 60mg/2mL (Ketorolac) IM Intramuscular October 01, 2018 Ad ministered Toradol 60mg/2mL (Ketorolac) IM Intramuscular Jan 23, 2017 Ad ministered Toradol 60mg/2mL (Ketorolac) IM Intramuscular Jan 31, 2017 Ad ministered Toradol 60mg/2mL (Ketorolac) IM Intramuscular Feb 04, 2017 Ad ministered Toradol 60mg/2mL (Ketorolac) IM Intramuscular July 30, 2019 Ad ministered SOCIAL HISTORY Tobacco Use: Social History Observation Description Date Details (start date - stop date) Never Smoker Sex Assigned At : Social History Observation Description Sex Assigned At Unknown Education: Question Answer Notes Level of Education: Grade School 8th grade Aud[employer] Question Answer Notes Total Score: 0 Interpretation: Alcohol Education Language: Question Answer Notes Languages spoken: Spanish Cheondoism: Question Answer Notes Cheondoism 15 [employer] Sexual Hx: Question Answer Notes [...] Notes Start Da te End Date Status Bentyl 10 MG 1 capsule Orally Four times a day prn abdominal cramping for 30 Days Active Baby Wipes 1 as directed topically prn dx:569.62 for 7 day(s) Active Alcohol Prep Pad 70 % as directed E11.9 test blood sugar QID PRN for 30 Days Jun, Active Triamcinolone Acetonide 0.1 % apply a thin layer to re d areas on fingers Externally Twice a day for 30 Days Active August Flakita Bags (51659) ICD:v55.3 change as needed ([place] nash) for 30 day(s) Active Zofran 4 MG/2ML 4 mg Injection BID at least 8h apart for 30 days Nov, Active Amitriptyline HCl 50 MG as directed Orally 1 tab in am and 3 tabs at bedtime for 30 Days Active Sodium Chloride 0.9 % one application inside the R nostril every 2 hrs prn for 7 day(s) Mar, Active Pen [place] 08/27" as directed subcutaneously Daily dx: E11.65 fo r 90 day(s) Jul, Active Nebulizer Compressor 1 inh dx: J45.909 every 4 hours as needed f or 90 day(s) August, Active May have flakita wafers flating flanges ICD: v55.3 ( 65571 2 1/2 change as needed (Tatianna) Active Sucralfate 1 GM 1 tab Orally Twice a day for 30 days Active Dicyclomine HCl 10 MG 1 capsule Orally four times daily for 30 Days Active Hospital bed use daily as directed dx: K9 1.2, G89.4, G90.522, N81.84 for 99 days May, Active Albuterol Sulfate HFA 108 (90 Base) MCG/ACT 2 puffs as needed Inhalation every 4 hrs prn for 30 Days Active Ciclopirox 8 % 1 application to the l 5th f ingernail Externally Once a day, clean off with an alcohol prep pad once a week for 90 day(s) Mar, Active Nystatin 889750 UNIT/GM APPLY TO AFFECTED AREA(S) AR OUND STOMA 2 TIMES A DAY DIRECTED UNTIL HEALED for 14 Act nba Mometasone Furoate 50 MCG/ACT 2 sprays in each nostril Nasally Once a day for 30 day(s) Mar, Active Ipratropium-Albuterol 0.5-2.5 (3) MG/3ML 3 ml Inhalati on every 6 hrs PRN for 30 days Dec, Active Mesalamine 1000 MG 1 suppository at bedtime Rectal Once a day fo r 30 day(s) Mar, Active Test Strips - - Dx: E11.65 four times daily as needed for 30 D ays Jun, Active Mupirocin Calcium 2 % 1 application Externally Thr ee times a day inside nostrils for 10 day(s) Apr, May, Active Simethicone 80 MG 2 tablets after meals and at bedtime as needed Orally three times a day as needed for abdominal pain and distention for 30 Active Syringe 2-3 ML 3 ML dx: r11.0 intramuscularly tid prn for 30 Day s Feb, Active Glucometer testing 4 times a day and as needed Dx: E11/65 f or 30 days Jun, Active Lancets Misc. - One touch delica 33G lancets Dx: E11.65 four times daily as needed for 30 Days Jun, Active Levemir Flex Touch 100 UNIT/ML 35 units Subcutaneous in the morning for 30 days Jul, Active Ammonium Lactate 12 % 1 application Externally Twice a day t o feet for 30 Days Jun, Active Victoza 18 MG/3ML 0.6mg daily x 1 week, theni ncreast to 1.2mg daily Subcutaneous Daily for 30 days Mar, A ctive Metoclopramide HCl 10 MG 1 tablet before meals and be dtime Orally three times daily before meals for 30 days Jun, A ctive Pedialyte bottle 330 ml Orally three times daily for 30 days Active Nebulizer/Tubing/Mouthpiece - as directed dx: J45.909 every 4 hours as needed for 90 day(s) August, Active Lactulose 20 GM/30ML 15 ml Orally AC and HS for 30 Days Active Estradiol 0.1 MG/GM 1 gram Vaginal daily for 30 Days 2019 Active PROCEDURES No Information RESULTS No Results REASON FOR VISIT estradiol MEDICAL (GENERAL) HISTORY Type Description Date Medical [...] Medication Name Sig Start Date Stop Date Metoclopramide HCl 10 MG 1 tablet before meals and be dtime Orally three times daily before meals for 30 days Jun, Lactulose 20 GM/30ML 15 ml Orally AC and HS for 30 Days Mupirocin Calcium 2 % 1 application Externally Thr ee times a day inside nostrils for 10 day(s) Apr, May, Levemir Flex Touch 100 UNIT/ML 35 units Subcutaneous in the morning for 30 days Jul, Victoza 18 MG/3ML 0.6mg daily x 1 week, theni ncreast to 1.2mg daily Subcutaneous Daily for 30 days Mar, Next Appt Details Provider Name:Deann El, 2020-05-25 10 :00:00 AM, [address] [place] [address], [phone], Provider Name:Peyton Avila, 11:00:00 AM, [address] [place] [address], [phone], Provider Name:Deann El, 2020-06-26 10 :00:00 AM, [address] [place] [address], [phone], Provider Name:Tutu Sanchez, 2020-07-13 02:15:00 PM, [address] [place] [address], [phone], Insurance Providers Payer Name Payer Address Payer Phone Insured Name Patient Relati onship to Insured Coverage Start Date Coverage End Date [facility] [address] [facility] [phone] GLENN JACOBSON
--- OUTSIDE RECORDS SUMMARY | 2020-05-27 08:54 | CCD ---
Author Author [facility] Organization [facility] Address Unknown Phone Unavailable Care Team Providers Care Client Relationship Manager Name Role Phone Ovi Antony Unavailable PROBLEMS Type Condition ICD9-CM Code ULR12-IV Code Onset Dates Condition S tatus SNOMED Code Notes Problem 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 Active 26 599701 Problem Unspecified asthma J45.909 Active 044319306 Problem Complicated headache syndromes G44.59 Active 2 56334947 Problem Chronic nausea R11.0 Active 123565831 Problem Chronic maxillary sinusitis J32.0 Active 3592 3002 Problem History of abdominal surgery Z98.890 Active 161 710875 Problem Allergic rhinitis, unspecified seasonality, unspecifie d trigger J30.9 Active 60031681 Problem Internal hemorrhoids without mention of complication K64.8 Active 37040904 Problem Viral warts, unspecified B07.9 Active 0488200 3 Problem DM w/o complication type II, uncontrolled E11.65 Active 19823685 Problem Pelvic muscle wasting N81.84 Active 32713836 Problem Mixed hyperlipidemia E78.2 Active 748917503 Problem Anemia, chronic disease D63.8 Active 77039495 6 Problem Breast calcification seen on mammogram R92.1 A ctive 335184751 Problem Esophageal reflux K21.9 Active 400233282 Problem Chronic pain associated with significant psychos ocial dysfunction G89.4 Active 038248675 Problem Low back pain M54.5 Active 004967852 Problem Dysfunction of eustachian tube, bilateral H69.83 Active 55900412 Problem DM w/o complication type II E11.9 Active 3139 63190 Problem Fatty liver K76.0 Active 446248002 Problem Chronic prescription opiate use Z79.899 Active 251283642 Problem Occipital neuralgia M54.81 Active 38046736 Problem Multiple drug allergies Z88.9 Active 42289038 2 Problem jail (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 Z79.4 Activ e 046918180 Problem Myalgia M79.1 Active 98181479 Problem Granulomatous disorder of the skin and s ubcutaneous tissue, unspecified L92.9 Active 173408118 Problem Type 2 diabetes mellitus with stage 3 chronic kidney disea se E11.22 Active 96066065 Problem Hypomagnesemia E83.42 Active 571798877 Problem Ileostomy status Z93.2 Active 415546042 Problem Chronic kidney disease, stage III (moderate) N18.3 Active 089924298 Problem Complex regional pain syndrome I of left lower limb G90.522 Active 163160203 Problem Spinal cord stimulator status Z96.89 Active 12 2740110 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 Active 158923484 Problem Encounter for care related to vascular access port Z45.2 Active 857487009 Problem Myalgia, other site M79.18 Active 35738202 Problem Type 2 diabetes mellitus without complications E11 .9 Active 024017830 Problem Constipation, unspecified constipation type K59.00 Active 45289982 Problem Hypoglycemia E16.2 Active 369360225 Problem Left lower quadrant pain R10.32 Active 6544624 02 Problem Pseudogout M11.20 Active 915490295 Problem Flexural eczema L20.82 Active 94630175 Problem Falls frequently R29.6 Active 660963778 Problem Disorders of magnesium metabolism, unspecified E83 .40 Active 21119538 Problem Other chronic pain G89.29 Active 48048389 Problem Port catheter in place Z95.828 Active 885316676 Problem Grief F43.20 Active 156715770 Problem Cervicalgia M54.2 Active 12679455 Problem Rosacea L71.9 Active 506304047 Problem Vaginal atrophy N95.2 Active 526338212 Problem Incisional hernia with obstruction but no gangrene K43.0 Active 986737722 ALLERGIES Allergen (clinical drug ingredient) Drug/Non Drug Allergy do cumented on EMR Reaction Allergy Type Onset Date Status morphine Morphine Sulfate([facility] Code:[address]-76) severe h/a with big dose Drug Allergy Active codeine Codeine Sulfate([facility] Code:[address]-91) out of b vito experience Drug Allergy Active red food dye rash Non Drug Allergy Active Gastrografin([facility] Code:[address]-31) Onl y 1 bottle per test day (can not tolerate any more than 1 bottle) Drug Allergy Active tiagabine Gabitril([facility] Code:[address]-49) nervous Drug Allergy Active ketorolac Ketorolac Tromethamine([facility] Code:[address]-16) vomitin g Drug Allergy Active Vicodin Confusion Drug Allergy Active Penicillin (For Allergies Use Only) Hives Drug Allerg y Active sulfa Hives Drug Allergy Active Baclofen affected nervous syt Drug Allergy Ac tive promethazine Promethazine HCl([facility] Code:[address]-06) out of body experience Drug Allergy Active Readi-Cat Hives Drug Allergy Active iodine nerves, tight muscles Drug Allergy A ctive tizanidine Tizanidine HCl([facility] Code:[address]-31) Hives Drug All ergy Active droperidol Droperidol([facility] Code:[address]-72) out of body Drug Allerg y Active Latex (for allergy use only) difficulty Drug Allergy Active pregabalin Lyrica shakes, everything is black Drug Allergy Active azithromycin Azithromycin([facility] Code:[address]-93) hives Drug All ergy Active phenothiazines nervous system Drug Allergy Acti ve lorazepam Ativan([facility] Code:[address]-41) hallucinations Drug Allergy Active Oxycodone vomiting,hives Drug Allergy Active nitrofurantoin, macrocrystals / nitrofurantoin, monohy drate Macrobid([facility] Code:[address]-20) Hives, blurred vision Drug Allergy Active meperidine Meperidine HCl([facility] Code:[address]-35) out of dena dy experience Drug Allergy Active tramadol Tramadol([facility] Code:[address]-64) shakes Drug Allergy Active lidoderm (licocanine) heart races Drug Allergy Active gabapentin Gabapentin([facility] Code:[address]-47) nervous syste m,shakey Drug Allergy Active aspirin Aspirin([facility] Code:[address]-77) Hives Drug Allergy Active fentanyl Fentanyl([facility] Code:[address]-92) nervous Drug Allergy Active albuterol Albuterol Sulfate([facility] Code:[address]-96) cough Drug Allergy Active quinolones- cipro,tequin Hives Drug Allergy Active ENCOUNTERS from 1960 to 2020-04-25 Encounter Location Date Provider Diagnosis [address] [address] Apr, [facility] IMMUNIZATIONS Vaccine Route Administration Date Status Toradol [...] Education Language: Question Answer Notes Languages spoken: Slovenian Uatsdin: Question Answer Notes Uatsdin [facility] Sexual Hx: Question Answer Notes [...] Notes Start Da te End Date Status Pedialyte bottle 330 ml Orally three times daily for 30 days Active Levemir Flex Touch 100 UNIT/ML 35 units Subcutaneous in the morning for 30 Days Jul, Active Ammonium Lactate 12 % 1 application Externally Twice a day t o feet for 30 Days Jun, Active Dicyclomine HCl 10 MG 1 capsule Orally four times daily for 30 Days Active Zofran 4 MG/2ML 4 mg Injection BID at least 8h apart for 30 days Nov, Active Bentyl 10 MG 1 capsule Orally Four times a day prn abdominal cramping for 30 Days Active Victoza 18 MG/3ML 0.6mg daily x 1 week, theni ncreast to 1.2mg daily Subcutaneous Daily for 28 day(s) Mar, Active Test Strips - - Dx: E11.65 four times daily as needed for 30 D ays Jun, Active Nebulizer Compressor 1 inh dx: J45.909 every 4 hours as needed f or 90 day(s) August, Active Albuterol Sulfate HFA 108 (90 Base) MCG/ACT 2 puffs as needed Inhalation every 4 hrs prn for 30 Days Active Amitriptyline HCl 50 MG as directed Orally 1 tab in am and 3 tabs at bedtime for 30 Days Active Nebulizer/Tubing/Mouthpiece - as directed dx: J45.909 every 4 hours as needed for 90 day(s) August, Active Nystatin 059364 UNIT/GM APPLY TO AFFECTED AREA(S) AR OUND STOMA 2 TIMES A DAY DIRECTED UNTIL HEALED for 14 Act nba Doxycycline Monohydrate 100 MG 1 capsule Orally Twice a day for 10 day(s) Mar, Active Doxycycline Hyclate 100 MG 1 tablet Orally bid for 7 days Mar, Not-Taking Mometasone Furoate 50 MCG/ACT 2 sprays in each nostril Nasally Once a day for 30 day(s) Mar, Active Mesalamine 1000 MG 1 suppository at bedtime Rectal Once a day fo r 30 day(s) Mar, Active Hospital bed use daily as directed dx: K9 1.2, G89.4, G90.522, N81.84 for 99 days May, Active Estradiol 0.1 MG/GM 1 gram Vaginal daily for 30 Days 2019 Active Sodium Chloride 0.9 % one application inside the R nostril every 2 hrs prn for 7 day(s) Mar, Active [place] /16" as directed subcutaneously Daily dx: E11.65 fo r 90 day(s) Jul, Active Lactulose 20 GM/30ML 15 ml Orally three times daily for 30 Active Ciclopirox 8 % 1 application to the l 5th f ingernail Externally Once a day, clean off with an alcohol prep pad once a week for 90 day(s) Mar, Active Sucralfate 1 GM 1 tab Orally Twice a day for 30 days Active Simethicone 80 MG 2 tablets after meals and at bedtime as needed Orally three times a day as needed for abdominal pain and distention for 30 Active Alcohol Prep Pad 70 % as directed E11.9 test blood sugar QID PRN for 30 Days Jun, Active Triamcinolone Acetonide 0.1 % apply a thin layer to re d areas on fingers Externally Twice a day for 30 Days Active Baby Wipes 1 as directed topically prn dx:569.62 for 7 day(s) Active Ipratropium-Albuterol 0.5-2.5 (3) MG/3ML 3 ml Inhalati on every 6 hrs PRN for 30 days Dec, Active Glucometer testing 4 times a day [...] Days Jun, A ctive May Flakita Bags (65444) ICD:v55.3 change as needed (Payton cao) for 30 day(s) Active May have flakita wafers flating flanges ICD: v55.3 ( 21900 2 1/2 change as needed (Tatianna) Active PROCEDURES No Information RESULTS No Results REASON FOR VISIT worse headache ever MEDICAL (GENERAL) HISTORY Type Description Date Medical [...] Medication Name Sig Start Date Stop Date Estradiol 0.1 MG/GM 1 gram Vaginal daily for 30 Days Oct, 0 Metoclopramide HCl 10 MG 1 tablet before meals and be dtime Orally three times daily before meals for 30 Days Jun, Doxycycline Monohydrate 100 MG 1 capsule Orally Twice a day for 10 day(s) Mar, Victoza 18 MG/3ML 0.6mg daily x 1 week, theni ncreast to 1.2mg daily Subcutaneous Daily for 28 day(s) Mar, Mometasone Furoate 50 MCG/ACT 2 sprays in each nostril Nasally Once a day for 30 day(s) Mar, Ammonium Lactate 12 % 1 application Externally Twice a day t o feet for 30 Days Jun, Lactulose 20 GM/30ML 15 ml Orally three times daily for 30 Simethicone 80 MG 2 tablets after meals and at bedtime as needed Orally three times a day as needed for abdominal pain and distention for 30 Mesalamine 1000 MG 1 suppository at bedtime Rectal Once a d ay for 30 day(s) Mar, Levemir Flex Touch 100 UNIT/ML 35 units Subcutaneous in the morning for 30 Days Jul, Next Appt Details Provider Name:Peyton Avila, 10:00:00 AM, [address] [place], [address], Provider Name:Tutu Sanchez, 2020-04-15 9 01:30:00 PM, [address] [place], [address], Provider Name:Deann El, 2020-06-26 10 :00:00 AM, [address] [place], [address], Insurance Providers Payer Name Payer Address Payer Phone Insured Name Patient Relati onship to Insured Coverage Start Date Coverage End Date [facility] [address] [place] [address] RUBA GRAFF,GLENN COOPRE self
--- OUTSIDE RECORDS SUMMARY | 2020-05-27 08:54 | CCD ---
Author Author [facility] Organization [facility] Address Unknown Phone Unavailable Care Team Providers Care Control Manager Name Role Phone Ovi Antony Unavailable PROBLEMS Type Condition ICD9-CM Code [id number] Code Onset Dates Condition S tatus SNOMED Code Notes Problem 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 Active 26 495206 Problem Unspecified asthma J45.909 Active 187394698 Problem Complicated headache syndromes G44.59 Active 2 65673013 Problem Chronic nausea R11.0 Active 569445299 Problem Chronic maxillary sinusitis J32.0 Active 3592 3002 Problem History of abdominal surgery Z98.890 Active 161 954914 Problem Allergic rhinitis, unspecified seasonality, unspecifie d trigger J30.9 Active 40946713 Problem Internal hemorrhoids without mention of complication K64.8 Active 24784406 Problem Viral warts, unspecified B07.9 Active 6575084 3 Problem DM w/o complication type II, uncontrolled E11.65 Active 52982700 Problem Pelvic muscle wasting N81.84 Active 26705925 Problem Mixed hyperlipidemia E78.2 Active 327226123 Problem Anemia, chronic disease D63.8 Active 89111497 6 Problem Breast calcification seen on mammogram R92.1 A ctive 961934653 Problem Esophageal reflux K21.9 Active 522247841 Problem Chronic pain associated with significant psychos ocial dysfunction G89.4 Active 255501869 Problem Low back pain M54.5 Active 924620295 Problem Dysfunction of eustachian tube, bilateral H69.83 Active 83471620 Problem DM w/o complication type II E11.9 Active 3131 89163 Problem Fatty liver K76.0 Active 565303545 Problem Chronic prescription opiate use Z79.899 Active 055564528 Problem Occipital neuralgia M54.81 Active 77428407 Problem Multiple drug allergies Z88.9 Active 16038580 2 Problem senior care (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 Z79.4 Activ e 107554330 Problem Myalgia M79.1 Active 28986378 Problem Granulomatous disorder of the skin and s ubcutaneous tissue, unspecified L92.9 Active 518635667 Problem Type 2 diabetes mellitus with stage 3 chronic kidney disea se E11.22 Active 46811470 Problem Hypomagnesemia E83.42 Active 896352036 Problem Ileostomy status Z93.2 Active 178675542 Problem Chronic kidney disease, stage III (moderate) N18.3 Active 954068206 Problem Complex regional pain syndrome I of left lower limb G90.522 Active 643974526 Problem Spinal cord stimulator status Z96.89 Active 12 4220601 Problem long term current use of insulin Z79.4 Active 266031355 Problem Encounter for care related to vascular access port Z45.2 Active 458271131 Problem Myalgia, other site M79.18 Active 80295025 Problem Type 2 diabetes mellitus without complications E11 .9 Active 943454734 Problem Constipation, unspecified constipation type K59.00 Active 13532611 Problem Hypoglycemia E16.2 Active 898260019 Problem Left lower quadrant pain R10.32 Active 8052146 02 Problem Pseudogout M11.20 Active 633139305 Problem Flexural eczema L20.82 Active 69474636 Problem Falls frequently R29.6 Active 567348023 Problem Disorders of magnesium metabolism, unspecified E83 .40 Active 33777943 Problem Other chronic pain G89.29 Active 58570583 Problem Port catheter in place Z95.828 Active 909647839 Problem Grief F43.20 Active 102350211 Problem Cervicalgia M54.2 Active 94313472 Problem Rosacea L71.9 Active 569288187 Problem Vaginal atrophy N95.2 Active 134075770 Problem Incisional hernia with obstruction but no gangrene K43.0 Active 110013695 ALLERGIES Allergen (clinical drug ingredient) Drug/Non Drug Allergy do cumented on EMR Reaction Allergy Type Onset Date Status morphine Morphine Sulfate([facility] Code:[address]-66) severe h/a with big dose Drug Allergy Active codeine Codeine Sulfate([facility] Code:[address]-10) out of b vito experience Drug Allergy Active red food dye rash Non Drug Allergy Active Gastrografin([facility] Code:[address]-19) Onl y 1 bottle per test day (can not tolerate any more than 1 bottle) Drug Allergy Active tiagabine Gabitril([facility] Code:[address]-95) nervous Drug Allergy Active ketorolac Ketorolac Tromethamine([facility] Code:[address]-59) vomitin g Drug Allergy Active Vicodin Confusion Drug Allergy Active Penicillin (For Allergies Use Only) Hives Drug Allerg y Active sulfa Hives Drug Allergy Active Baclofen affected nervous syt Drug Allergy Ac tive promethazine Promethazine HCl([facility] Code:[address]-57) out of body experience Drug Allergy Active Readi-Cat Hives Drug Allergy Active iodine nerves, tight muscles Drug Allergy A ctive tizanidine Tizanidine HCl([facility] Code:[address]-25) Hives Drug All ergy Active droperidol Droperidol([facility] Code:[address]-45) out of body Drug Allerg y Active Latex (for allergy use only) difficulty Drug Allergy Active pregabalin Lyrica shakes, everything is black Drug Allergy Active azithromycin Azithromycin([facility] Code:[address]-51) hives Drug All ergy Active phenothiazines nervous system Drug Allergy Acti ve lorazepam Ativan([facility] Code:[address]-10) hallucinations Drug Allergy Active Oxycodone vomiting,hives Drug Allergy Active nitrofurantoin, macrocrystals / nitrofurantoin, monohy drate Macrobid([facility] Code:[address]-65) Hives, blurred vision Drug Allergy Active meperidine Meperidine HCl([facility] Code:[address]-13) out of dena dy experience Drug Allergy Active tramadol Tramadol([facility] Code:[address]-94) shakes Drug Allergy Active lidoderm (licocanine) heart races Drug Allergy Active gabapentin Gabapentin([facility] Code:[address]-83) nervous syste m,shakey Drug Allergy Active aspirin Aspirin([facility] Code:[address]-61) Hives Drug Allergy Active fentanyl Fentanyl([facility] Code:[address]-96) nervous Drug Allergy Active albuterol Albuterol Sulfate([facility] Code:[address]-96) cough Drug Allergy Active quinolones- cipro,tequin Hives Drug Allergy Active ENCOUNTERS from 1960 to 2020-05-04 Encounter Location Date Provider Diagnosis [address] [address] Apr, [facility] IMMUNIZATIONS Vaccine Route Administration Date Status Toradol [...] dministered Toradol 60mg/2mL (Ketorolac) IM Intramuscular September 10, 2017 Ad ministered Hepatitis A & B 1mL (Twinrix) IM Intramuscular Apr 15, 2012 A dministered Toradol 60mg/2mL (Ketorolac) IM Intramuscular September 09, 2017 Ad ministered Pneumococcal Adult 0.5mL (Pneumovax 23) IM Intramuscular Feb 22, 2013 Administered Toradol 60mg/2mL (Ketorolac) IM Intramuscular September 22, [...] ministered Rocephin 1gm (Ceftriaxone) IM Intramuscular Dec 22, 2015 Admi nistered Toradol 60mg/2mL (Ketorolac) IM Intramuscular Dec 12, 2016 Ad ministered Rocephin 1gm (Ceftriaxone) IM Intramuscular Apr 26, 2016 Admi nistered Toradol 60mg/2mL (Ketorolac) IM Intramuscular Dec 23, 2016 Ad ministered Pneumococcal Adult 0.5mL (Pneumovax 23) IM Intramuscular September Administered Toradol 60mg/2mL (Ketorolac) IM Intramuscular May 07, 2016 Ad ministered Rocephin 1gm (Ceftriaxone) IM Intramuscular Dec 15, 2015 Admi nistered Toradol 60mg/2mL (Ketorolac) IM Intramuscular May 28, 2016 Ad ministered Rocephin 1gm (Ceftriaxone) IM Intramuscular Dec 19, 2015 Admi nistered Toradol 60mg/2mL (Ketorolac) IM Intramuscular July 18, 2016 Ad ministered Rocephin 1gm (Ceftriaxone) IM Intramuscular Dec 20, 2015 Admi nistered Toradol 60mg/2mL (Ketorolac) IM Intramuscular Dec 27, 2016 Ad ministered Rocephin 1gm (Ceftriaxone) IM Intramuscular Dec 21, 2015 Admi nistered Toradol 60mg/2mL (Ketorolac) IM Intramuscular Dec 30, 2016 Ad ministered Toradol 60mg/2mL (Ketorolac) IM Intramuscular Jan 07, 2017 Ad ministered Rocephin 1gm (Ceftriaxone) IM Intramuscular May 19, 2017 Admi nistered Rocephin 1gm (Ceftriaxone) IM Intramuscular May 20, 2017 Admi nistered Rocephin 1gm (Ceftriaxone) IM Intramuscular May 21, [...] Education Language: Question Answer Notes Languages spoken: Bulgarian Samaritan: Question Answer Notes [facility] [...] as needed for 90 day(s) August, Active Dicyclomine HCl 10 MG 1 capsule [...] a day for 30 day(s) Mar, Active Albuterol Sulfate HFA 108 (90 Base) [...] day fo r 30 day(s) Mar, Active Doxycycline Monohydrate 100 MG 1 capsule Orally Twice a day for 10 day(s) Mar, Active Doxycycline Hyclate 100 MG 1 tablet Orally bid for 7 days Mar, Not-Taking Nystatin 804004 UNIT/GM APPLY TO AFFECTED AREA(S) AR OUND STOMA 2 TIMES A DAY DIRECTED UNTIL HEALED for 14 Act nba Triamcinolone Acetonide 0.1 % apply a thin layer to re d areas on fingers Externally Twice a day for 30 Days Active Hospital bed use daily as directed dx: K9 1.2, G89.4, G90.522, N81.84 for 99 days May, Active Estradiol 0.1 MG/GM 1 gram Vaginal daily for 30 Days 2019 Active Sodium Chloride 0.9 % one application inside the R nostril every 2 hrs prn for 7 day(s) Mar, Active Pen [place] /" as directed subcutaneously Daily dx: E11.65 fo [...] Days Jun, A ctive May Flakita Bags (89094) ICD:v55.3 change as needed (Payton cao) for 30 day(s) Active May have flakita wafers flating flanges ICD: v55.3 ( 42328 2 1/2 change as needed (Tatianna) Active PROCEDURES No Information RESULTS No Results REASON FOR VISIT RAMIREZ/ xray results MEDICAL (GENERAL) HISTORY Type Description Date Medical [...] Twice a day for 10 day(s) Mar, Nystatin 380959 UNIT/GM APPLY TO AFFECTED AREA(S) AR OUND STOMA 2 TIMES A DAY DIRECTED UNTIL HEALED for 14 Victoza 18 MG/3ML 0.6mg daily x 1 [...] Appt Details Provider Name:Peyton Avila, 10:00:00 AM, [address] [place] [address], [phone], Provider Name:Tutu Sanchez, 2020-04-15 9 01:30:00 PM, [address] [place] [address], [phone], Provider Name:Deann El, 2020-05-25 10 :00:00 AM, [address] [place] [address], [phone], Provider Name:Deann El, 2020-06-26 10 :00:00 AM, [address] [place] [address], [phone], Insurance Providers Payer Name Payer Address Payer Phone Insured Name Patient Relati onship to Insured Coverage Start Date Coverage End Date [facility] [address] [facility] [id number] RUBA GRAFF,GLENN COOPER self
--- OUTSIDE RECORDS SUMMARY | 2020-05-27 08:54 | CCD | Continuity of Care Document ---
Author Author Rich CAMPUZANO MD Organization Unknown Address [address] [place] [address] Phone [phone] Care Team Providers Care Ceo Na Name Role Phone Tutu Sanchez M.D. 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 Social History [...] Daily Tablets 1xby mouth daily Unknown Cranberry [phone]-mg-Unit Caps ules once a day Unknown Azelastine [...] Available Vital Signs Date Vital Result Comment 04/26/2020 10:01am BP Systolic 126 mmHg BP Diastolic 84 mmHg Height 67 inches 5'7" Weight 181.50 lb BMI (Body Mass Index) 28.4 kg/m2 [place] Body Weight 135 lb Weight 82.328 kg BSA (Body Surface Area) 1.94 m2 03/15/2020 1:13pm BP Systolic 139 mmHg BP Diastolic 79 mmHg Height 67 inches 5'7" Weight 179.12 lb BMI (Body Mass Index) 28.1 kg/m2 [place] Body Weight 135 lb Weight 81.251 kg BSA (Body Surface Area) 1.93 m2 Results Test Acquired Date Facility Test Result H/L Range Note Laboratory test finding 12/22/2019 [facility] [address] [place] [address] [phone] Bedside Glucose 256 mg/dL High 70-105 Laboratory test finding 12/22/2019 [facility] [address] [place] [address] [phone] Bedside Glucose 260 mg/dL High 70-105 Laboratory test finding 12/21/2019 [facility] [address] [place] [address] [phone] Bedside Glucose 214 mg/dL High 70-105 Laboratory test finding 12/21/2019 [facility] [address] [place] [address] [phone] Bedside Glucose 126 mg/dL High 70-105 Laboratory test finding 12/21/2019 [facility] [address] [place] [address] [phone] Bedside Glucose 159 mg/dL High 70-105 Laboratory test finding 12/21/2019 [facility] [address] [place] [address] [phone] Bedside Glucose 185 mg/dL High 70-105 Laboratory test finding 12/21/2019 [facility] [address] [place] [address] [phone] Bedside Glucose 203 mg/dL High 70-105 Procedures Date Code Description Status 02/17/2020 46365 Sigmoidoscopy, Flexi ble;Diagnostic W/Or W/O Collection Of Specime Completed 12/21/2019 03021 Implantation Of Mesh Or Other Prosthesis For Incisional Or Ventra Completed 12/21/2019 54825 Hernia Recurr Ventral/Incisional , Reducible Completed Medical Devices Description No Information Available Encounters Type Date Location Provider Dx Diagnosis Office Visit 03/15/2020 1:30p [facility] Silver sapp JR, MD R10.84 Generalized abdominal pain Office Visit 01/10/2020 2:30p [facility] Toribio myers NP K62.89 Other specified diseases of anus and rec wilber Office Visit 12/29/2019 9:50a [facility] Silver sapp JR, MD K43.2 Incisional hernia without obstruction or gangrene Z48.89 Encounter for other specifie d surgical aftercare Office Visit 12/27/2019 3:00p [facility] Toribio myers NP K43.2 Incisional hernia without obstruction or gangrene Z48.89 Encounter for other specifie d surgical aftercare Office Visit 11/10/2019 10:40a [facility] Silver sapp JR, MD K43.2 Incisional hernia without obstruction or gangrene Assessments Date Code Description Provider 03/15/2020 R10.84 Generalized abdominal pain Silver Campuzano [...] ction or gangrene Silver Campuzano JR, MD 11/10/2019 K43.2 Incisional hernia without obstru ction or gangrene Silver Campuzano JR, MD Plan of Treatment 03/15/2020 - Silver Campuzano JR, MD* R10.84 Generalized abdominal pain* Comments: * Patient has had some abdominal pain that's been going on for many years and she waxes and wanes with the amount of abdominal pain that she has in general we'll was look for some abnormality that we can assist with unfortunately she is gotten to a point from the abdominal wall standpoint that operative intervention is only in her Zach measures if she is truly obstructed then first conservative treatment and then resolution of those issues typically occurs and the last ditch effort is to proceed with operative intervention for repair of hernias etc. however this pain in the rectum it's hard to know what it really is and whether she needs additional evaluation concerning possible perineal proctectomy. This would be the only other option that I could recommend at this time given that I'm not seeing any etiology for the severe pain that she's having in this area. Doesn't make sense that it would be associated with anal fissures given that she's not having any significant drainage it doesn't really look as though it's proctitis although I suppose that's another possibility but I wasn't impressed that this could be or was the issue at the time of her endoscopy. Like the colorectal surgeons to see her and see if they can help us out with this issue and see if they feel a perineal proctectomy would make a difference with her a rectal issues. Functional Status Description No Information Available Mental Status Description No Information Available Referrals Refer to Reason for Referral Status Appt Date [facility] RE[facility] DRAINAGE Cl osed 03/21/2020 [address] [place] [address] [phone] Silver Campuzano JR, MD PARASTOMAL HERNIA Closed [address] [facility] [address] [place] [address] [phone]
--- OUTSIDE RECORDS SUMMARY | 2020-05-27 08:54 | CCD ---
Author Author [facility] Organization [facility] Address Unknown Phone Unavailable Care Team Providers Care Senior Php Web Developer Name Role Phone Ovi Antony Unavailable PROBLEMS Type Condition ICD9-CM Code [id number] Code Onset Dates Condition S tatus SNOMED Code Notes Problem 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 Active 26 958457 Problem Unspecified asthma J45.909 Active 064414086 Problem Complicated headache syndromes G44.59 Active 2 01641974 Problem Chronic nausea R11.0 Active 868802906 Problem Chronic maxillary sinusitis J32.0 Active 3592 3002 Problem History of abdominal surgery Z98.890 Active 161 836343 Problem Allergic rhinitis, unspecified seasonality, unspecifie d trigger J30.9 Active 40319065 Problem Internal hemorrhoids without mention of complication K64.8 Active 94919377 Problem Viral warts, unspecified B07.9 Active 6040192 3 Problem DM w/o complication type II, uncontrolled E11.65 Active 88568044 Problem Pelvic muscle wasting N81.84 Active 03380348 Problem Mixed hyperlipidemia E78.2 Active 052294804 Problem Anemia, chronic disease D63.8 Active 00734580 6 Problem Breast calcification seen on mammogram R92.1 A ctive 337765691 Problem Esophageal reflux K21.9 Active 066524700 Problem Chronic pain associated with significant psychos ocial dysfunction G89.4 Active 598759404 Problem Low back pain M54.5 Active 592110337 Problem Dysfunction of eustachian tube, bilateral H69.83 Active 93455609 Problem DM w/o complication type II E11.9 Active 3131 83372 Problem Fatty liver K76.0 Active 611381617 Problem Chronic prescription opiate use Z79.899 Active 613169414 Problem Occipital neuralgia M54.81 Active 30888122 Problem Multiple drug allergies Z88.9 Active 46076350 2 Problem nursing home (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 Z79.4 Activ e 872981330 Problem Myalgia M79.1 Active 57794912 Problem Granulomatous disorder of the skin and s ubcutaneous tissue, unspecified L92.9 Active 045735836 Problem Type 2 diabetes mellitus with stage 3 chronic kidney disea se E11.22 Active 03064731 Problem Hypomagnesemia E83.42 Active 176574389 Problem Ileostomy status Z93.2 Active 490131317 Problem Chronic kidney disease, stage III (moderate) N18.3 Active 787508859 Problem Complex regional pain syndrome I of left lower limb G90.522 Active 786259258 Problem Spinal cord stimulator status Z96.89 Active 12 4857713 Problem community relations representative current use of insulin Z79.4 Active 351984790 Problem Encounter for care related to vascular access port Z45.2 Active 402633890 Problem Myalgia, other site M79.18 Active 92310900 Problem Type 2 diabetes mellitus without complications E11 .9 Active 795958303 Problem Constipation, unspecified constipation type K59.00 Active 69927959 Problem Hypoglycemia E16.2 Active 758014587 Problem Left lower quadrant pain R10.32 Active 5215092 02 Problem Pseudogout M11.20 Active 737677461 Problem Flexural eczema L20.82 Active 04260620 Problem Falls frequently R29.6 Active 013450879 Problem Disorders of magnesium metabolism, unspecified E83 .40 Active 58988437 Problem Other chronic pain G89.29 Active 01944735 Problem Port catheter in place Z95.828 Active 363363247 Problem Grief F43.20 Active 935708759 Problem Cervicalgia M54.2 Active 69619322 Problem Rosacea L71.9 Active 555277939 Problem Vaginal atrophy N95.2 Active 438099144 Problem Incisional hernia with obstruction but no gangrene K43.0 Active 741721322 ALLERGIES Allergen (clinical drug ingredient) Drug/Non Drug Allergy do cumented on EMR Reaction Allergy Type Onset Date Status morphine Morphine Sulfate[place] [place]:[address]-86) severe h/a with big dose Drug Allergy Active codeine Codeine Sulfate([facility] Code:[address]-10) out of b vito experience Drug Allergy Active red food dye rash Non Drug Allergy Active Gastrografin([facility] Code:[address]-46) Onl y 1 bottle per test day (can not tolerate any more than 1 bottle) Drug Allergy Active tiagabine Gabitril([facility] Code:[address]-83) nervous Drug Allergy Active ketorolac Ketorolac Tromethamine([facility] Code:[address]-22) vomitin g Drug Allergy Active Vicodin Confusion Drug Allergy Active Penicillin (For Allergies Use Only) Hives Drug Allerg y Active sulfa Hives Drug Allergy Active Baclofen affected nervous syt Drug Allergy Ac tive promethazine Promethazine HCl([facility] Code:[address]-20) out of body experience Drug Allergy Active Readi-Cat Hives Drug Allergy Active iodine nerves, tight muscles Drug Allergy A ctive tizanidine Tizanidine HCl([facility] Code:[address]-97) Hives Drug All ergy Active droperidol Droperidol([facility] Code:[address]-36) out of body Drug Allerg y Active Latex (for allergy use only) difficulty Drug Allergy Active pregabalin Lyrica shakes, everything is black Drug Allergy Active azithromycin Azithromycin([facility] Code:[address]-76) hives Drug All ergy Active phenothiazines nervous system Drug Allergy Acti ve lorazepam Ativan([facility] Code:[address]-24) hallucinations Drug Allergy Active Oxycodone vomiting,hives Drug Allergy Active nitrofurantoin, macrocrystals / nitrofurantoin, monohy drate Macrobid([facility] Code:[address]-71) Hives, blurred vision Drug Allergy Active meperidine Meperidine HCl([facility] Code:[address]-06) out of dena dy experience Drug Allergy Active tramadol Tramadol([facility] Code:[address]-00) shakes Drug Allergy Active lidoderm (licocanine) heart races Drug Allergy Active gabapentin Gabapentin([facility] Code:[address]-47) nervous syste m,shakey Drug Allergy Active aspirin Aspirin([facility] Code:[address]-92) Hives Drug Allergy Active fentanyl Fentanyl([facility] [place] Code:[address]-53) nervous Drug Allergy Active albuterol Albuterol Sulfate([facility] [place] Code:[address]-21) cough Drug Allergy Active quinolones- cipro,tequin Hives Drug Allergy Active ENCOUNTERS from 1960 to 2020-05-04 Encounter Location Date Provider Diagnosis [address] [address] Apr, [facility] IMMUNIZATIONS Vaccine Route Administration Date Status [...] Education Language: Question Answer Notes Languages spoken: Occitan Cheondoism: Question Answer Notes Cheondoism 15 [employer] [...] bid for 7 days Mar, Not-Taking Nystatin 666935 UNIT/GM APPLY TO AFFECTED AREA(S) AR OUND [...] prn for 7 day(s) Mar, Active Pen [place] /" as directed subcutaneously Daily dx: E11.65 [...] Days Jun, A ctive May [place] Bags (22925) ICD:v55.3 change as needed (Payton cao) for 30 day(s) Active May have flakita wafers flating flanges ICD: v55.3 ( 83327 2 1/2 change as needed (Tatianna) Active PROCEDURES No Information RESULTS No Results REASON FOR VISIT headache MEDICAL (GENERAL) HISTORY Type Description Date Medical [...] a day for 10 day(s) Mar, Nystatin 023722 UNIT/GM APPLY TO AFFECTED AREA(S) AR OUND [...] Details Provider Name:Peyton Avila, 10:00:00 AM, [address] [place] [address], [phone], Provider Name:Tutu Sanchez, 2020-04-15 9 01:30:00 PM, [address] [place] [address], [phone], Provider Name:Deann El, 2020-05-25 10 :00:00 AM, [address] [place] [address], [phone], Provider Name:Deann El, 2020-06-26 10 :00:00 AM, [address] [place] [address], [phone], Insurance Providers Payer Name Payer Address Payer Phone Insured Name Patient Relati onship to Insured Coverage Start Date Coverage End Date [facility] [address] [facility] [id number] RUBA GRAFF,GLENN COOPER self
--- OUTSIDE RECORDS SUMMARY | 2020-05-27 08:54 | CCD ---
Author Author [facility] Organization [facility] Address Unknown Phone Unavailable Care Team Providers Care Ending Machine Operator Name Role Phone Ovi Antony Unavailable PROBLEMS Type Condition ICD9-CM Code HGE08-VT Code Onset Dates Condition S tatus SNOMED Code Notes Problem 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 Active 26 811097 Problem Unspecified asthma J45.909 Active 462790133 Problem Complicated headache syndromes G44.59 Active 2 26628854 Problem Chronic nausea R11.0 Active 521206900 Problem Chronic maxillary sinusitis J32.0 Active 3592 3002 Problem History of abdominal surgery Z98.890 Active 161 075520 Problem Allergic rhinitis, unspecified seasonality, unspecifie d trigger J30.9 Active 17384292 Problem Internal hemorrhoids without mention of complication K64.8 Active 91246063 Problem Viral warts, unspecified B07.9 Active 0026389 3 Problem DM w/o complication type II, uncontrolled E11.65 Active 91517789 Problem Pelvic muscle wasting N81.84 Active 13938180 Problem Mixed hyperlipidemia E78.2 Active 962601735 Problem Anemia, chronic disease D63.8 Active 86767287 6 Problem Breast calcification seen on mammogram R92.1 A ctive 654783073 Problem Esophageal reflux K21.9 Active 325440080 Problem Chronic pain associated with significant psychos ocial dysfunction G89.4 Active 779322687 Problem Low back pain M54.5 Active 427799695 Problem Dysfunction of eustachian tube, bilateral H69.83 Active 30568231 Problem DM w/o complication type II E11.9 Active 3132 41079 Problem Fatty liver K76.0 Active 435037917 Problem Chronic prescription opiate use Z79.899 Active 973356148 Problem Occipital neuralgia M54.81 Active 21186605 Problem Multiple drug allergies Z88.9 Active 02614597 2 Problem [facility] (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 Z79.4 Activ e 739867080 Problem Myalgia M79.1 Active 08080171 Problem Granulomatous disorder of the skin and s ubcutaneous tissue, unspecified L92.9 Active 986488277 Problem Type 2 diabetes mellitus with stage 3 chronic kidney disea se E11.22 Active 98129327 Problem Hypomagnesemia E83.42 Active 143992748 Problem Ileostomy status Z93.2 Active 770184018 Problem Chronic kidney disease, stage III (moderate) N18.3 Active 900034711 Problem Complex regional pain syndrome I of left lower limb G90.522 Active 905434265 Problem Spinal cord stimulator status Z96.89 Active 12 7876487 Problem predatory animal exterminator current use of insulin Z79.4 Active 364150982 Problem Encounter for care related to vascular access port Z45.2 Active 755788636 Problem Myalgia, other site M79.18 Active 11588940 Problem Type 2 diabetes mellitus without complications E11 .9 Active 626149958 Problem Constipation, unspecified constipation type K59.00 Active 06089125 Problem Hypoglycemia E16.2 Active 848918220 Problem Left lower quadrant pain R10.32 Active 9736176 02 Problem Pseudogout M11.20 Active 544292926 Problem Flexural eczema L20.82 Active 86395819 Problem Falls frequently R29.6 Active 727597633 Problem Disorders of magnesium metabolism, unspecified E83 .40 Active 69155048 Problem Other chronic pain G89.29 Active 58453559 Problem Port catheter in place Z95.828 Active 597671128 Problem Grief F43.20 Active 198739222 Problem Cervicalgia M54.2 Active 29602400 Problem Rosacea L71.9 Active 037810521 Problem Vaginal atrophy N95.2 Active 206295282 Problem Incisional hernia with obstruction but no gangrene K43.0 Active 706953974 ALLERGIES Allergen (clinical drug ingredient) Drug/Non Drug Allergy do cumented on EMR Reaction Allergy Type Onset Date Status morphine Morphine Sulfate([facility] Code:[address]-03) severe h/a with big dose Drug Allergy Active codeine Codeine Sulfate([facility] Code:[address]-52) out of b vito experience Drug Allergy Active red food dye rash Non Drug Allergy Active Gastrografin([facility] Code:[address]-73) Onl y 1 bottle per test day (can not tolerate any more than 1 bottle) Drug Allergy Active tiagabine Gabitril([facility] Code:[address]-59) nervous Drug Allergy Active ketorolac Ketorolac Tromethamine([facility] Code:[address]-63) vomitin g Drug Allergy Active Vicodin Confusion Drug Allergy Active Penicillin (For Allergies Use Only) Hives Drug Allerg y Active sulfa Hives Drug Allergy Active Baclofen affected nervous syt Drug Allergy Ac tive promethazine Promethazine HCl([facility] Code:[address]-90) out of body experience Drug Allergy Active Readi-Cat Hives Drug Allergy Active iodine nerves, tight muscles Drug Allergy A ctive tizanidine Tizanidine HCl([facility] Code:[address]-96) Hives Drug All ergy Active droperidol Droperidol([facility] Code:[address]-55) out of body Drug Allerg y Active Latex (for allergy use only) difficulty Drug Allergy Active pregabalin Lyrica shakes, everything is black Drug Allergy Active azithromycin Azithromycin([facility] Code:[address]-16) hives Drug All ergy Active phenothiazines nervous system Drug Allergy Acti ve lorazepam Ativan([facility] Code:[address]-18) hallucinations Drug Allergy Active Oxycodone vomiting,hives Drug Allergy Active nitrofurantoin, macrocrystals / nitrofurantoin, monohy drate Macrobid([facility] Code:[address]-81) Hives, blurred vision Drug Allergy Active meperidine Meperidine HCl([facility] Code:[address]-17) out of dena dy experience Drug Allergy Active tramadol Tramadol([facility] Code:[address]-65) shakes Drug Allergy Active lidoderm (licocanine) heart races Drug Allergy Active gabapentin Gabapentin([facility] Code:[address]-13) nervous syste m,shakey Drug Allergy Active aspirin Aspirin([facility] Code:[address]-86) Hives Drug Allergy Active fentanyl Fentanyl([facility] Code:[address]-55) nervous Drug Allergy Active albuterol Albuterol Sulfate([facility] Code:[address]-86) cough Drug Allergy Active quinolones- cipro,tequin Hives Drug Allergy Active ENCOUNTERS from 1960 to 2020-04-28 Encounter Location Date Provider Diagnosis [address] [address] Apr, Ovi Arpan Headache above the eye region R51.9 IMMUNIZATIONS Vaccine Route Administration Date Status Toradol [...] IM Intramuscular Feb 20, 2017 Ad ministered Hepatitis A & B 1mL (Twinrix) IM Intramuscular October 02, 2011 A dministered Rocephin 1gm (Ceftriaxone) IM Intramuscular May 21, 2017 Admi nistered Hepatitis A & B 1mL (Twinrix) IM Intramuscular Feb 11, 2012 A dministered Toradol 60mg/2mL (Ketorolac) IM Intramuscular July 14, 2017 Ad ministered Hepatitis A & B 1mL (Twinrix) IM Intramuscular Apr 15, 2012 A dministered Toradol 60mg/2mL (Ketorolac) IM Intramuscular July 21, 2017 Ad ministered Toradol 60mg/2mL (Ketorolac) IM Intramuscular Apr 22, 2016 Ad ministered Toradol 60mg/2mL (Ketorolac) IM Intramuscular Feb 21, 2017 Ad ministered TDAP Unknown September 13, 2009 Administered Toradol 60mg/2mL (Ketorolac) IM Intramuscular Feb 24, 2017 Ad ministered Pneumococcal Adult 0.5mL (Pneumovax 23) IM Intramuscular Feb 22, 2013 Administered Rocephin 1gm (Ceftriaxone) IM Intramuscular May 19, 2017 Admi nistered Pneumococcal Adult 0.5mL (Pneumovax 23) Unknown Jan 27, 2016 Administered Rocephin 1gm (Ceftriaxone) IM Intramuscular May 20, 2017 Admi nistered Toradol 60mg/2mL (Ketorolac) IM Intramuscular Apr 26, 2016 Ad ministered Toradol 60mg/2mL (Ketorolac) IM Intramuscular May 01, 2016 Ad ministered Toradol 60mg/2mL (Ketorolac) IM Intramuscular May 03, 2016 Ad ministered Toradol 60mg/2mL (Ketorolac) IM Intramuscular July 22, 2017 Ad ministered Toradol 60mg/2mL (Ketorolac) IM Intramuscular July 23, 2017 Ad ministered Toradol 60mg/2mL (Ketorolac) [...] 60mg/2mL (Ketorolac) IM Intramuscular 2017 Ad ministered Rocephin 1gm (Ceftriaxone) IM Intramuscular Dec 19, 2015 Admi nistered Rocephin 1gm (Ceftriaxone) IM Intramuscular May 22, 2017 Admi nistered Rocephin 1gm (Ceftriaxone) IM Intramuscular Dec 20, 2015 Admi nistered Rocephin 1gm (Ceftriaxone) IM Intramuscular Dec 21, 2015 Admi nistered Rocephin 1gm (Ceftriaxone) IM Intramuscular Dec 22, 2015 Admi nistered Toradol 60mg/2mL (Ketorolac) IM Intramuscular Jan 08, 2017 Ad ministered Toradol 60mg/2mL (Ketorolac) IM Intramuscular October 01, 2018 Ad ministered Toradol 60mg/2mL (Ketorolac) IM Intramuscular Jan 13, 2017 Ad ministered Toradol 60mg/2mL (Ketorolac) IM Intramuscular October 06, 2018 Ad ministered Pneumococcal Adult 0.5mL (Pneumovax 23) IM Intramuscular September Administered Toradol 60mg/2mL (Ketorolac) IM Intramuscular July 30, 2019 Ad ministered Rocephin 1gm (Ceftriaxone) IM Intramuscular Dec 15, 2015 Admi nistered Rocephin 1gm (Ceftriaxone) IM Intramuscular May 23, 2017 Admi nistered Rocephin 1gm (Ceftriaxone) IM Intramuscular Apr 26, 2016 Admi nistered Toradol 60mg/2mL (Ketorolac) IM Intramuscular Feb 03, 2017 Ad ministered Toradol 60mg/2mL (Ketorolac) IM Intramuscular Jan 17, 2017 Ad ministered Influenza (18 yrs & [...] Education Language: Question Answer Notes Languages spoken: Polish Faith: Question Answer Notes Faith 15 [employer]byterian Sexual Hx: Question Answer Notes [...] bid for 7 days Mar, Not-Taking Nystatin 061649 UNIT/GM APPLY TO AFFECTED AREA(S) AR OUND [...] prn for 7 day(s) Mar, Active Pen [place] 5/16" as directed subcutaneously Daily dx: E11.65 [...] for 30 Days Jun, A ctive May [place] Bags (53004) ICD:v55.3 change as needed (Payton cao) for 30 day(s) Active May have jerome wafers flating flanges ICD: v55.3 ( 86672 2 1/2 change as needed (Tatianna) Active PROCEDURES No Information RESULTS No Results REASON FOR VISIT RAMIREZ MEDICAL (GENERAL) HISTORY Type Description Date Medical [...] Treatment Notes Treatm ent Clinical Notes Apr, Headache above the eye region (ICD-10 - R51.9) PLAN OF TREATMENT Medication Medication Name Sig Start Date Stop Date Estradiol 0.1 MG/GM 1 gram Vaginal daily for 30 Days Oct, 0 Metoclopramide HCl 10 MG 1 tablet before meals and be dtime Orally three times daily before meals for 30 Days Jun, Doxycycline Monohydrate 100 MG 1 capsule Orally Twice a day for 10 day(s) Mar, Nystatin 585922 UNIT/GM APPLY TO AFFECTED AREA(S) AR OUND [...] in the morning for 30 Days Jul, Treatment Notes Test Name Order Date [facility] 2020-04-28 Next Appt Details Provider Name:Peyton Avila, 10:00:00 AM, [address] [place], [address], Provider Name:Tutu Sanchez, 2020-04-15 9 01:30:00 PM, [address] [place], [address], Provider Name:Deann El, 2020-06-26 10 :00:00 AM, [address] [place], [address], Insurance Providers Payer Name Payer Address Payer Phone Insured Name Patient Relati onship to Insured Coverage Start Date Coverage End Date [facility] [address] [facility] [id number] RUBA GRAFF,GLENN COOPER self
--- OUTSIDE RECORDS SUMMARY | 2020-05-27 08:54 | CCD ---
Author Author [facility] Organization [facility] Address Unknown Phone Unavailable Care Team Providers Care Clean Up Person Name Role Phone Ovi Antony Unavailable PROBLEMS Type Condition ICD9-CM Code [id number] Code Onset Dates Condition S tatus SNOMED Code Notes Problem 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 Active 26 808544 Problem Unspecified asthma J45.909 Active 717652888 Problem Complicated headache syndromes G44.59 Active 2 42986698 Problem Chronic nausea R11.0 Active 724314832 Problem Chronic maxillary sinusitis J32.0 Active 3592 3002 Problem History of abdominal surgery Z98.890 Active 161 550383 Problem Allergic rhinitis, unspecified seasonality, unspecifie d trigger J30.9 Active 47972793 Problem Internal hemorrhoids without mention of complication K64.8 Active 54980987 Problem Viral warts, unspecified B07.9 Active 8964775 3 Problem DM w/o complication type II, uncontrolled E11.65 Active 76972226 Problem Pelvic muscle wasting N81.84 Active 70860017 Problem Mixed hyperlipidemia E78.2 Active 111128243 Problem Anemia, chronic disease D63.8 Active 77833463 6 Problem Breast calcification seen on mammogram R92.1 A ctive 435485063 Problem Esophageal reflux K21.9 Active 010984784 Problem Chronic pain associated with significant psychos ocial dysfunction G89.4 Active 061511184 Problem Low back pain M54.5 Active 050146723 Problem Dysfunction of eustachian tube, bilateral H69.83 Active 66742190 Problem DM w/o complication type II E11.9 Active 3132 90042 Problem Fatty liver K76.0 Active 253951505 Problem Chronic prescription opiate use Z79.899 Active 120244945 Problem Occipital neuralgia M54.81 Active 27081482 Problem Multiple drug allergies Z88.9 Active 83902558 2 Problem [facility] (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 Z79.4 Activ e 564820237 Problem Myalgia M79.1 Active 04916794 Problem Granulomatous disorder of the skin and s ubcutaneous tissue, unspecified L92.9 Active 211819179 Problem Type 2 diabetes mellitus with stage 3 chronic kidney disea se E11.22 Active 00091306 Problem Hypomagnesemia E83.42 Active 939658236 Problem Ileostomy status Z93.2 Active 299671983 Problem Chronic kidney disease, stage III (moderate) N18.3 Active 723328585 Problem Complex regional pain syndrome I of left lower limb G90.522 Active 537553481 Problem Spinal cord stimulator status Z96.89 Active 12 4358074 Problem 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 Active 772547605 Problem Encounter for care related to vascular access port Z45.2 Active 714508718 Problem Myalgia, other site M79.18 Active 57494155 Problem Type 2 diabetes mellitus without complications E11 .9 Active 005241678 Problem Constipation, unspecified constipation type K59.00 Active 45259985 Problem Hypoglycemia E16.2 Active 683549132 Problem Left lower quadrant pain R10.32 Active 9120192 02 Problem Pseudogout M11.20 Active 130952164 Problem Flexural eczema L20.82 Active 27537564 Problem Falls frequently R29.6 Active 992882160 Problem Disorders of magnesium metabolism, unspecified E83 .40 Active 09897257 Problem Other chronic pain G89.29 Active 32875832 Problem Port catheter in place Z95.828 Active 276614383 Problem Grief F43.20 Active 161642420 Problem Cervicalgia M54.2 Active 34484961 Problem Rosacea L71.9 Active 228182602 Problem Vaginal atrophy N95.2 Active 098449740 Problem Incisional hernia with obstruction but no gangrene K43.0 Active 839591398 ALLERGIES Allergen (clinical drug ingredient) Drug/Non Drug Allergy do cumented on EMR Reaction Allergy Type Onset Date Status morphine Morphine Sulfate([facility] Code:[address]-14) severe h/a with big dose Drug Allergy Active codeine Codeine Sulfate([facility] Code:[address]-58) out of b vito experience Drug Allergy Active red food dye rash Non Drug Allergy Active Gastrografin([facility] Code:[address]-23) Onl y 1 bottle per test day (can not tolerate any more than 1 bottle) Drug Allergy Active tiagabine Gabitril([facility] Code:[address]-74) nervous Drug Allergy Active ketorolac Ketorolac Tromethamine([facility] Code:[address]-91) vomitin g Drug Allergy Active Vicodin Confusion Drug Allergy Active Penicillin (For Allergies Use Only) Hives Drug Allerg y Active sulfa Hives Drug Allergy Active Baclofen affected nervous syt Drug Allergy Ac tive promethazine Promethazine HCl([facility] Code:[address]-21) out of body experience Drug Allergy Active Readi-Cat Hives Drug Allergy Active iodine nerves, tight muscles Drug Allergy A ctive tizanidine Tizanidine HCl([facility] Code:[address]-47) Hives Drug All ergy Active droperidol Droperidol([facility] Code:[address]-66) out of body Drug Allerg y Active Latex (for allergy use only) difficulty Drug Allergy Active pregabalin Lyrica shakes, everything is black Drug Allergy Active azithromycin Azithromycin([facility] Code:[address]-46) hives Drug All ergy Active phenothiazines nervous system Drug Allergy Acti ve lorazepam Ativan([facility] Code:[address]-82) hallucinations Drug Allergy Active Oxycodone vomiting,hives Drug Allergy Active nitrofurantoin, macrocrystals / nitrofurantoin, monohy drate Macrobid([facility] Code:[address]-96) Hives, blurred vision Drug Allergy Active meperidine Meperidine HCl([facility] Code:[address]-72) out of dena dy experience Drug Allergy Active tramadol Tramadol([facility] Code:[address]-64) shakes Drug Allergy Active lidoderm (licocanine) heart races Drug Allergy Active gabapentin Gabapentin([facility] Code:[address]-64) nervous syste m,shakey Drug Allergy Active aspirin Aspirin([facility] Code:[address]-04) Hives Drug Allergy Active fentanyl Fentanyl([facility] Code:[address]-61) nervous Drug Allergy Active albuterol Albuterol Sulfate([facility] Code:[address]-23) cough Drug Allergy Active quinolones- cipro,tequin Hives Drug Allergy Active ENCOUNTERS from 1960 to 2020-04-24 Encounter Location Date Provider Diagnosis [address] [address] 30 Mar[facility] Vaccine Route Administration Date Status Toradol [...] Education Language: Question Answer Notes Languages spoken: German Restoration: Question Answer Notes Restoration [employer] Sexual Hx: Question Answer Notes [...] needed for 90 day(s) August, Active Nystatin 738245 UNIT/GM APPLY TO AFFECTED AREA(S) AR OUND [...] prn for 7 day(s) Mar, Active Pen [place] /16" as directed subcutaneously Daily dx: E11.65 [...] Days Jun, A ctive May Flakita Bags (73038) ICD:v55.3 change as needed (Payton cao) for 30 day(s) Active May have flakita wafers flating flanges ICD: v55.3 ( 10787 2 1/2 change as needed (Tatianna) Active PROCEDURES No Information RESULTS No Results REASON FOR VISIT mometasone 50mcg nasal MEDICAL (GENERAL) HISTORY Type Description Date Medical [...] Details Provider Name:Peyton Avila, 10:00:00 AM, [address] [place], [address], Provider Name:Tutu Sanchez, 2020-04-15 9 01:30:00 PM, [address] [place], [address], Provider Name:Deann El, 2020-06-26 10 :00:00 AM, [address] [place], [address], Insurance Providers Payer Name Payer Address Payer Phone Insured Name Patient Relati onship to Insured Coverage Start Date Coverage End Date [facility] [address] [facility] [id number] RUBA GRAFF,GLENN COOPER self
--- OUTSIDE RECORDS SUMMARY | 2020-05-27 08:55 | CCD ---
Author Author [facility] Organization [facility] Address Unknown Phone Unavailable Care Team Providers Care Emergency Room Registered Nurse Name Role Phone Moraima Farah Unavailable PROBLEMS Type Condition ICD9-CM Code [id number] Code Onset Dates Condition S tatus SNOMED Code Notes Problem 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 Active 26 982129 Problem Unspecified asthma J45.909 Active 728728371 Problem Complicated headache syndromes G44.59 Active 2 89383882 Problem Chronic nausea R11.0 Active 133611634 Problem Chronic maxillary sinusitis J32.0 Active 3592 3002 Problem History of abdominal surgery Z98.890 Active 161 405420 Problem Allergic rhinitis, unspecified seasonality, unspecifie d trigger J30.9 Active 36775263 Problem Internal hemorrhoids without mention of complication K64.8 Active 08930020 Problem Viral warts, unspecified B07.9 Active 9484051 3 Problem DM w/o complication type II, uncontrolled E11.65 Active 78567492 Problem Pelvic muscle wasting N81.84 Active 97072472 Problem Mixed hyperlipidemia E78.2 Active 183526618 Problem Anemia, chronic disease D63.8 Active 60006534 6 Problem Breast calcification seen on mammogram R92.1 A ctive 282435525 Problem Esophageal reflux K21.9 Active 294312430 Problem Chronic pain associated with significant psychos ocial dysfunction G89.4 Active 385256264 Problem Low back pain M54.5 Active 550832962 Problem Dysfunction of eustachian tube, bilateral H69.83 Active 16295487 Problem DM w/o complication type II E11.9 Active 3131 28120 Problem Fatty liver K76.0 Active 076119743 Problem Chronic prescription opiate use Z79.899 Active 845226242 Problem Occipital neuralgia M54.81 Active 96448125 Problem Multiple drug allergies Z88.9 Active 40486795 2 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 Activ e 525178282 Problem Myalgia M79.1 Active 03172874 Problem Granulomatous disorder of the skin and s ubcutaneous tissue, unspecified L92.9 Active 332645384 Problem Type 2 diabetes mellitus with stage 3 chronic kidney disea se E11.22 Active 88567548 Problem Hypomagnesemia E83.42 Active 421277940 Problem Ileostomy status Z93.2 Active 960878285 Problem Chronic kidney disease, stage III (moderate) N18.3 Active 076003794 Problem Complex regional pain syndrome I of left lower limb G90.522 Active 345004617 Problem Spinal cord stimulator status Z96.89 Active 12 0333806 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 Active 757440615 Problem Encounter for care related to vascular access port Z45.2 Active 048453875 Problem Myalgia, other site M79.18 Active 79329718 Problem Type 2 diabetes mellitus without complications E11 .9 Active 207833824 Problem Constipation, unspecified constipation type K59.00 Active 26949942 Problem Hypoglycemia E16.2 Active 701594916 Problem Left lower quadrant pain R10.32 Active 1700978 02 Problem Pseudogout M11.20 Active 750763342 Problem Flexural eczema L20.82 Active 00793105 Problem Falls frequently R29.6 Active 113719166 Problem Disorders of magnesium metabolism, unspecified E83 .40 Active 42484382 Problem Other chronic pain G89.29 Active 46564172 Problem Port catheter in place Z95.828 Active 910909760 Problem Grief F43.20 Active 873728415 Problem Cervicalgia M54.2 Active 74205557 Problem Rosacea L71.9 Active 811803776 Problem Vaginal atrophy N95.2 Active 526834807 Problem Incisional hernia with obstruction but no gangrene K43.0 Active 604318220 ALLERGIES Allergen (clinical drug ingredient) Drug/Non Drug Allergy do cumented on EMR Reaction Allergy Type Onset Date Status morphine Morphine Sulfate([facility] Code:[address]-34) severe h/a with big dose Drug Allergy Active codeine Codeine Sulfate([facility] Code:[address]-06) out of b vito experience Drug Allergy Active red food dye rash Non Drug Allergy Active Gastrografin([facility] Code:[address]-54) Onl y 1 bottle per test day (can not tolerate any more than 1 bottle) Drug Allergy Active tiagabine Gabitril([facility] Code:[address]-89) nervous Drug Allergy Active ketorolac Ketorolac Tromethamine([facility] Code:[address]-89) vomitin g Drug Allergy Active Vicodin Confusion Drug Allergy Active Penicillin (For Allergies Use Only) Hives Drug Allerg y Active sulfa Hives Drug Allergy Active Baclofen affected nervous syt Drug Allergy Ac tive promethazine Promethazine HCl([facility] Code:[address]-36) out of body experience Drug Allergy Active Readi-Cat Hives Drug Allergy Active iodine nerves, tight muscles Drug Allergy A ctive tizanidine Tizanidine HCl([facility] Code:[address]-18) Hives Drug All ergy Active droperidol Droperidol([facility] Code:[address]-56) out of body Drug Allerg y Active Latex (for allergy use only) difficulty Drug Allergy Active pregabalin Lyrica shakes, everything is black Drug Allergy Active azithromycin Azithromycin([facility] Code:[address]-68) hives Drug All ergy Active phenothiazines nervous system Drug Allergy Acti ve lorazepam Ativan([facility] Code:[address]-55) hallucinations Drug Allergy Active Oxycodone vomiting,hives Drug Allergy Active nitrofurantoin, macrocrystals / nitrofurantoin, monohy drate Macrobid([facility] Code:[address]-96) Hives, blurred vision Drug Allergy Active meperidine Meperidine HCl([facility] Code:[address]-10) out of dena dy experience Drug Allergy Active tramadol Tramadol([facility] Code:[address]-47) shakes Drug Allergy Active lidoderm (licocanine) heart races Drug Allergy Active gabapentin Gabapentin([facility] Code:[address]-36) nervous syste m,shakey Drug Allergy Active aspirin Aspirin([facility] Code:[address]-47) Hives Drug Allergy Active fentanyl Fentanyl([facility] Code:[address]-84) nervous Drug Allergy Active albuterol Albuterol Sulfate([facility] Code:[address]-62) cough Drug Allergy Active quinolones- cipro,tequin Hives Drug Allergy Active ENCOUNTERS from 1960 to 2020-04-22 Encounter Location Date Provider Diagnosis [address] [address] Apr, Moraima Farah IMMUNIZATIONS Vaccine Route Administration Date Status Toradol [...] Education Language: Question Answer Notes Languages spoken: Iraqi Yazidism: Question Answer Notes Yazidism [employer] Sexual Hx: Question Answer Notes [...] o feet for 30 Days Jun, Active Pedialyte bottle 330 ml Orally three times daily for 30 days Active Zofran 4 MG/2ML 4 mg Injection BID at least 8h apart for 30 days Nov, Active Bentyl 10 MG 1 capsule Orally Four times a day prn abdominal cramping for 30 Days Active Doxycycline Monohydrate 100 MG 1 capsule [...] needed for 90 day(s) August, Active Nystatin 623235 UNIT/GM APPLY TO AFFECTED AREA(S) AR OUND STOMA 2 TIMES A DAY DIRECTED UNTIL HEALED for 14 Act nba Simethicone 80 MG 2 tablets after meals [...] day fo r 30 day(s) Mar, Active Sucralfate 1 GM 1 [...] hrs PRN for 30 days Dec, Active Alcohol Prep Pad 70 % as directed E11.9 test blood sugar QID PRN for 30 Days Jun, Active Ciclopirox 8 % 1 application to the l 5th f ingernail Externally Once a day, clean off with an alcohol prep pad once a week for 90 day(s) Mar, Active Pen [place] 08/27" as directed subcutaneously Daily dx: E11.65 fo r 90 day(s) Jul, Active Lactulose 20 GM/30ML 15 ml Orally three times daily for 30 Active Estradiol 0.1 MG/GM 1 gram Vaginal daily Oct, Active Triamcinolone Acetonide 0.1 % apply a [...] for 30 Days Jun, A ctive May [place] Bags (86124) ICD:v55.3 change as needed (Payton cao) for 30 day(s) Active May have jerome wafers flating flanges ICD: v55.3 ( 54309 2 1/2 change as needed (Tatianna) Active PROCEDURES No Information RESULTS No Results REASON FOR VISIT Approval MEDICAL (GENERAL) HISTORY Type Description Date Medical [...] for abdominal pain and distention for 30 Doxycycline Monohydrate 100 MG 1 capsule Orally Twice a day for 10 day(s) Mar, Mometasone Furoate 50 MCG/ACT 2 sprays in each nostril Nasally Once a day for 30 day(s) Mar, Levemir Flex Touch 100 UNIT/ML 35 units Subcutaneous in the morning for 30 Days Jul, Lactulose 20 GM/30ML 15 ml Orally three times daily for 30 Ammonium Lactate 12 % 1 application Externally Twice a day t o feet for 30 Days Jun, Mesalamine 1000 MG 1 suppository at bedtime Rectal Once a d ay for 30 day(s) Mar, Next Appt Details Provider Name:Peyton Avila, 10:00:00 AM, [address] [place], [address], Provider Name:Tutu Sanchez, 2020-04-15 9 01:30:00 PM, [address] [place], [address], Provider Name:Deann El, 2020-06-26 10 :00:00 AM, [address] [place], [address], Insurance Providers Payer Name Payer Address Payer Phone Insured Name Patient Relati onship to Insured Coverage Start Date Coverage End Date [facility] [address] [place] [phone] RUBA GRAFF,GLENN COOPER self
--- OUTSIDE RECORDS SUMMARY | 2020-05-27 08:55 | CCD ---
Author Author [facility] Organization [facility] Address Unknown Phone Unavailable Care Team Providers Care Administrative Program Specialist Name Role Phone Tutu Sanchez Unavailable PROBLEMS Type Condition ICD9-CM Code AQP48-NB Code Onset Dates Condition S tatus SNOMED Code Notes Problem 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 Active 26 919240 Problem Unspecified asthma J45.909 Active 430092646 Problem Complicated headache syndromes G44.59 Active 2 78435629 Problem Chronic nausea R11.0 Active 959260993 Problem Chronic maxillary sinusitis J32.0 Active 3592 3002 Problem History of abdominal surgery Z98.890 Active 161 175482 Problem Allergic rhinitis, unspecified seasonality, unspecifie d trigger J30.9 Active 99677894 Problem Internal hemorrhoids without mention of complication K64.8 Active 87035439 Problem Viral warts, unspecified B07.9 Active 0870671 3 Problem DM w/o complication type II, uncontrolled E11.65 Active 34669313 Problem Pelvic muscle wasting N81.84 Active 27881439 Problem Mixed hyperlipidemia E78.2 Active 397492689 Problem Anemia, chronic disease D63.8 Active 08555788 6 Problem Breast calcification seen on mammogram R92.1 A ctive 169282628 Problem Esophageal reflux K21.9 Active 445946408 Problem Chronic pain associated with significant psychos ocial dysfunction G89.4 Active 748272037 Problem Low back pain M54.5 Active 666073350 Problem Dysfunction of eustachian tube, bilateral H69.83 Active 01602754 Problem DM w/o complication type II E11.9 Active 3134 04859 Problem Fatty liver K76.0 Active 764502000 Problem Chronic prescription opiate use Z79.899 Active 912957853 Problem Occipital neuralgia M54.81 Active 35315761 Problem Multiple drug allergies Z88.9 Active 61398797 2 Problem halfway (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 Z79.4 Activ e 036340012 Problem Myalgia M79.1 Active 03358133 Problem Granulomatous disorder of the skin and s ubcutaneous tissue, unspecified L92.9 Active 524828833 Problem Type 2 diabetes mellitus with stage 3 chronic kidney disea se E11.22 Active 25079242 Problem Hypomagnesemia E83.42 Active 454289276 Problem Ileostomy status Z93.2 Active 815792925 Problem Chronic kidney disease, stage III (moderate) N18.3 Active 387587126 Problem Complex regional pain syndrome I of left lower limb G90.522 Active 520569069 Problem Spinal cord stimulator status Z96.89 Active 12 2834421 Problem 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 Active 422665205 Problem Encounter for care related to vascular access port Z45.2 Active 044876612 Problem Myalgia, other site M79.18 Active 97142613 Problem Type 2 diabetes mellitus without complications E11 .9 Active 565933921 Problem Constipation, unspecified constipation type K59.00 Active 37391990 Problem Hypoglycemia E16.2 Active 025755669 Problem Left lower quadrant pain R10.32 Active 2965828 02 Problem Pseudogout M11.20 Active 710730841 Problem Flexural eczema L20.82 Active 65483233 Problem Falls frequently R29.6 Active 695470268 Problem Disorders of magnesium metabolism, unspecified E83 .40 Active 17593014 Problem Other chronic pain G89.29 Active 84066734 Problem Port catheter in place Z95.828 Active 274666648 Problem Grief F43.20 Active 789141957 Problem Cervicalgia M54.2 Active 70441289 Problem Rosacea L71.9 Active 616632673 Problem Vaginal atrophy N95.2 Active 549067371 Problem Incisional hernia with obstruction but no gangrene K43.0 Active 255308255 ALLERGIES Allergen (clinical drug ingredient) Drug/Non Drug Allergy do cumented on EMR Reaction Allergy Type Onset Date Status morphine Morphine Sulfate([facility] Code:[address]-98) severe h/a with big dose Drug Allergy Active codeine Codeine Sulfate([facility] Code:[address]-48) out of b vito experience Drug Allergy Active red food dye rash Non Drug Allergy Active Gastrografin([facility] Code:[address]-48) Onl y 1 bottle per test day (can not tolerate any more than 1 bottle) Drug Allergy Active tiagabine Gabitril([facility] Code:[address]-15) nervous Drug Allergy Active ketorolac Ketorolac Tromethamine([facility] Code:[address]-40) vomitin g Drug Allergy Active Vicodin Confusion Drug Allergy Active Penicillin (For Allergies Use Only) Hives Drug Allerg y Active sulfa Hives Drug Allergy Active Baclofen affected nervous syt Drug Allergy Ac tive promethazine Promethazine HCl([facility] Code:[address]-31) out of body experience Drug Allergy Active Readi-Cat Hives Drug Allergy Active iodine nerves, tight muscles Drug Allergy A ctive tizanidine Tizanidine HCl([facility] Code:[address]-69) Hives Drug All ergy Active droperidol Droperidol([facility] Code:[address]-33) out of body Drug Allerg y Active Latex (for allergy use only) difficulty Drug Allergy Active pregabalin Lyrica shakes, everything is black Drug Allergy Active azithromycin Azithromycin([facility] Code:[address]-27) hives Drug All ergy Active phenothiazines nervous system Drug Allergy Acti ve lorazepam Ativan([facility] Code:[address]-28) hallucinations Drug Allergy Active Oxycodone vomiting,hives Drug Allergy Active nitrofurantoin, macrocrystals / nitrofurantoin, monohy drate Macrobid([facility] Code:[address]-90) Hives, blurred vision Drug Allergy Active meperidine Meperidine HCl([facility] Code:[address]-87) out of dena dy experience Drug Allergy Active tramadol Tramadol([facility] Code:[address]-65) shakes Drug Allergy Active lidoderm (licocanine) heart races Drug Allergy Active gabapentin Gabapentin([facility] Code:[address]-80) nervous syste m,shakey Drug Allergy Active aspirin Aspirin([facility] Code:[address]-98) Hives Drug Allergy Active fentanyl Fentanyl([facility] Code:[address]-49) nervous Drug Allergy Active albuterol Albuterol Sulfate([facility] Code:[address]-26) cough Drug Allergy Active quinolones- cipro,tequin Hives Drug Allergy Active ENCOUNTERS from 1960 to 2020-04-22 Encounter Location Date Provider Diagnosis [address] [address] 30 Jan, 2020 Tutu Sanchez Encounter for other preprocedural examin ation Z01.818 ; Ileostomy status Z93.2 ; DM w/o complication type II, uncontrolled E11.65 ; Type 2 diabetes mellitus with stage 3 chronic kidney disease E11.22 ; Stage 3 chronic kidney disease, unspecified whether stage 3a or 3b CKD N18.30 ; halfway (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 Z79.4 ; Chronic pain associated with significant psychosocial dysfunction G89.4 ; Change in vision H53.9 ; Nonintractable episodic headache, unspecified headache type R51.9 and Chronic nausea R11.0 IMMUNIZATIONS Vaccine Route Administration Date Status Toradol [...] Education Language: Question Answer Notes Languages spoken: Lithuanian Episcopal: Question Answer Notes Episcopal 15 [employer] [...] REASON FOR REFERRAL No Information VITAL SIGNS Weight 174.8 lbs Jan, Height 67 in Jan, BMI 27.37 kg/m2 Jan, Heart Rate 102 /min Jan, Respiratory Rate 18 /min Jan, Temperature 97.1 degrees Fahrenheit Jan, Oximetry 98 Jan, Blood pressure systolic 112 mm Hg Jan, Blood pressure diastolic 78 mm Hg Jan, MEDICATIONS Medication SIG (Take, Route, Frequency, Duration) [...] every 4 hours as needed f or day(s) August, Active Victoza 18 MG/3ML 0.6mg daily x 1 week, theni ncreast to 1.2mg daily Subcutaneous Daily for 28 day(s) Mar, Active Amitriptyline HCl 50 MG as directed Orally 1 tab in am and 3 tabs at bedtime for 30 Days Active Nebulizer/Tubing/Mouthpiece - as directed dx: J45.909 every 4 hours as needed for 90 day(s) August, Active Nystatin 716533 UNIT/GM APPLY TO AFFECTED AREA(S) AR OUND [...] week for 90 day(s) Mar, Active Pen [place] 5/16" as directed subcutaneously Daily dx: E11.65 [...] times a day and as needed Dx: E1165 f or 30 days Jun, Active Syringe [...] Days Jun, A ctive May Flakita Bags (94338) ICD:v55.3 change as needed (Payton nash) for 30 day(s) Active May have flakita wafers flating flanges ICD: v55.3 ( 42749 2 1/2 change as needed (Tatianna) Active PROCEDURES No Information RESULTS No Results REASON FOR VISIT follow up MEDICAL (GENERAL) HISTORY Type Description Date Medical [...] Notes Treatment Notes Treatm ent Clinical Notes Jan, Encounter for other preprocedural examination (I CD-10 - Z01.818) I discussed the risks vs. benefits of surgery with the patient in generic terms. I feel that she is at higher than average risk for perioperative complications based on her multiple medical co-morbidities. She knows that there is always some risk with surgery and she has to be comfortable that, for her, the benefits of surgery outweigh the risks in order to proceed. If halima has further questions regarding the specifics of the proposed surgical procedure and specific risks, she should discuss them with the surgeon. I feel that the patient's acute and chronic medical conditions are not fully optimized at the present time. However, there are no readily alterable factors that could lower the patient's perioperative risk. Consequently, she is as optimized as she is going to be in the near future. The patient understands these risks and is willing to proceed with the procedure. I have recommended the patient stop all medications as recommended by their surgeon and anesthesia. In addition I recommend she take half of her basal insulin dose on the day of surgery Jan, Ileostomy status (ICD-10 - Z93.2) She anticipates an endoscopic procedure in the near future with Dr. Campuzano. Jan, DM w/o complication type II, uncontrolled (ICD-1 0 - E11.65) Her BGL are not ideally controlled, but I am concerned that any changes could drive hypoglycemia especially in a perioperative setting. I will leave her regimen as it is for now. She should only take half of the basal insulin recommended if she is fasting (e.g. before a procedure). Jan, Type 2 diabetes mellitus wit h stage 3 chronic kidney disease (ICD- 10 - E11.22) Caution should be undertaken and careful monitoring of her renal function in a periprocedural period. Jan, Stage 3 chronic kidney disea se, unspecified whether stage 3a or 3b CKD (ICD-10 - N18.30) Jan, halfway (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 (ICD-10 - Z79 .4) Jan, Chronic pain associated with significant psychosocial dysfunction (ICD-10 - G89.4) She is frequently on opioids for procedures. She has always been responsible with them. As always the lowest doses should be used for the shortest amounts of time. Jan, Change in vision (ICD-10 - H53.9) She is requesting a referral to a new opthalmologist as hers is no longer taking her insurance. I will provide this. Jan, Nonintractable episodic head ache, unspecified headache type (ICD-10 - R51.9) She contines to see Pain Management for treatment of her headaches. Jan, Chronic nausea (ICD-10 - R11.0) She is on several medications which help her manage her nausea. She requested refills of two, which I provided. PLAN OF TREATMENT Medication Medication Name Sig [...] a d ay for 30 day(s) Mar, Treatment Notes Assessment Notes Clinical Notes Encounter for other preprocedural examination I discussed the risks vs. benefits of surgery with the patient in generic terms. I feel that she is at higher than average risk for perioperative complications based on her multiple medical co-morbidities. She knows that there is always some risk with surgery and she has to be comfortable that, for her, the benefits of surgery outweigh the risks in order to proceed. If halima has further questions regarding the specifics of the proposed surgical procedure and specific risks, she should discuss them with the surgeon.I feel that the patient's acute and chronic medical conditions are not fully optimized at the present time. However, there are no readily alterable factors that could lower the patient's perioperative risk. Consequently, she is as optimized as she is going to be in the near future. The patient understands these risks and is willing to proceed with the procedure.I have recommended the patient stop all medications as recommended by their surgeon and anesthesia. In addition I recommend she take half of her basal insulin dose on the day of surgery Ileostomy status She anticipates an e ndoscopic procedure in the near future with Dr. Campuzano. DM w/o complication type II, uncontrolled Her BGL are not ideally controlled, but I am concerned that any changes could drive hypoglycemia especially in a perioperative setting. I will leave her regimen as it is for now. She should only take half of the basal insulin recommended if she is fasting (e.g. before a procedure). Type 2 diabetes mellitus with stage 3 chronic kidney disease Caution should be undertaken and careful monitoring of her renal function in a periprocedural period. Chronic pain associated with significant psychosocial dysfun ction She is frequently on opioids for procedures. She has always been responsible with them. As always the lowest doses should be used for the shortest amounts of time. Change in vision She is requesting a referral to a new opthalmologist as hers is no longer taking her insurance. I will provide this. Nonintractable episodic headache, unspecified headache type She contines to see Pain Management for treatment of her headaches. Chronic nausea She is on several me dications which help her manage her nausea. She requested refills of two, which I provided. Next Appt Details 1 Week Reason:follow-up procedure and L leg RSD symptoms Provider Name:Peyton Karan Avila, 10:00:00 AM, [address] [place], [address], Provider Name:Tutu Sanchez, 2020-04-15 9 01:30:00 PM, [address] [place], [address], Provider Name:Deann El, 2020-06-26 10 :00:00 AM, [address] [place], [address], Follow Up:1 Weekfollow-up procedure and L leg RSD symptoms Insurance Providers Payer Name Payer Address Payer Phone Insured Name Patient Relati onship to Insured Coverage Start Date Coverage End Date [facility] [address] [facility] [id number] GLENN JACOBSON
--- OUTSIDE RECORDS SUMMARY | 2020-05-27 08:55 | CCD ---
Author Author [facility] Organization [facility] Address Unknown Phone Unavailable Care Team Providers Care Dispatch Manager Name Role Phone Ovi Antony Unavailable PROBLEMS Type Condition ICD9-CM Code ZHU59-UV Code Onset Dates Condition S tatus SNOMED Code Notes Problem 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 Active 26 016459 Problem Unspecified asthma J45.909 Active 235668166 Problem Complicated headache syndromes G44.59 Active 2 99261635 Problem Chronic nausea R11.0 Active 740623853 Problem Chronic maxillary sinusitis J32.0 Active 3592 3002 Problem History of abdominal surgery Z98.890 Active 161 469616 Problem Allergic rhinitis, unspecified seasonality, unspecifie d trigger J30.9 Active 09541955 Problem Internal hemorrhoids without mention of complication K64.8 Active 72019229 Problem Viral warts, unspecified B07.9 Active 2297284 3 Problem DM w/o complication type II, uncontrolled E11.65 Active 61799365 Problem Pelvic muscle wasting N81.84 Active 70056740 Problem Mixed hyperlipidemia E78.2 Active 153843024 Problem Anemia, chronic disease D63.8 Active 65531193 6 Problem Breast calcification seen on mammogram R92.1 A ctive 848071569 Problem Esophageal reflux K21.9 Active 857743056 Problem Chronic pain associated with significant psychos ocial dysfunction G89.4 Active 528384113 Problem Low back pain M54.5 Active 672696254 Problem Dysfunction of eustachian tube, bilateral H69.83 Active 94638365 Problem DM w/o complication type II E11.9 Active 3135 93453 Problem Fatty liver K76.0 Active 509621082 Problem Chronic prescription opiate use Z79.899 Active 595180419 Problem Occipital neuralgia M54.81 Active 16829358 Problem Multiple drug allergies Z88.9 Active 65159554 2 Problem half-way (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 Z79.4 Activ e 641314073 Problem Myalgia M79.1 Active 09254111 Problem Granulomatous disorder of the skin and s ubcutaneous tissue, unspecified L92.9 Active 286355662 Problem Type 2 diabetes mellitus with stage 3 chronic kidney disea se E11.22 Active 53708116 Problem Hypomagnesemia E83.42 Active 310762933 Problem Ileostomy status Z93.2 Active 487262726 Problem Chronic kidney disease, stage III (moderate) N18.3 Active 998259541 Problem Complex regional pain syndrome I of left lower limb G90.522 Active 494540575 Problem Spinal cord stimulator status Z96.89 Active 12 3936819 Problem 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 Active 162480393 Problem Encounter for care related to vascular access port Z45.2 Active 309014708 Problem Myalgia, other site M79.18 Active 65481135 Problem Type 2 diabetes mellitus without complications E11 .9 Active 979806247 Problem Constipation, unspecified constipation type K59.00 Active 95011558 Problem Hypoglycemia E16.2 Active 684113743 Problem Left lower quadrant pain R10.32 Active 6094781 02 Problem Pseudogout M11.20 Active 670237852 Problem Flexural eczema L20.82 Active 25250085 Problem Falls frequently R29.6 Active 181088944 Problem Disorders of magnesium metabolism, unspecified E83 .40 Active 45712495 Problem Other chronic pain G89.29 Active 82554323 Problem Port catheter in place Z95.828 Active 104729362 Problem Grief F43.20 Active 810371320 Problem Cervicalgia M54.2 Active 64839195 Problem Rosacea L71.9 Active 424495901 Problem Vaginal atrophy N95.2 Active 463602419 Problem Incisional hernia with obstruction but no gangrene K43.0 Active 649276566 ALLERGIES Allergen (clinical drug ingredient) Drug/Non Drug Allergy do cumented on EMR Reaction Allergy Type Onset Date Status morphine Morphine Sulfate([facility] Code:[address]-38) severe h/a with big dose Drug Allergy Active codeine Codeine Sulfate([facility] Code:[address]-24) out of b vito experience Drug Allergy Active red food dye rash Non Drug Allergy Active Gastrografin([facility] Code:[address]-48) Onl y 1 bottle per test day (can not tolerate any more than 1 bottle) Drug Allergy Active tiagabine Gabitril([facility] Code:[address]-11) nervous Drug Allergy Active ketorolac Ketorolac Tromethamine([facility] Code:[address]-02) vomitin g Drug Allergy Active Vicodin Confusion Drug Allergy Active Penicillin (For Allergies Use Only) Hives Drug Allerg y Active sulfa Hives Drug Allergy Active Baclofen affected nervous syt Drug Allergy Ac tive promethazine Promethazine HCl([facility] Code:[address]-18) out of body experience Drug Allergy Active Readi-Cat Hives Drug Allergy Active iodine nerves, tight muscles Drug Allergy A ctive tizanidine Tizanidine HCl([facility] Code:[address]-73) Hives Drug All ergy Active droperidol Droperidol([facility] Code:[address]-33) out of body Drug Allerg y Active Latex (for allergy use only) difficulty Drug Allergy Active pregabalin Lyrica shakes, everything is black Drug Allergy Active azithromycin Azithromycin([facility] Code:[address]-94) hives Drug All ergy Active phenothiazines nervous system Drug Allergy Acti ve lorazepam Ativan([facility] Code:[address]-97) hallucinations Drug Allergy Active Oxycodone vomiting,hives Drug Allergy Active nitrofurantoin, macrocrystals / nitrofurantoin, monohy drate Macrobid([facility] Code:[address]-71) Hives, blurred vision Drug Allergy Active meperidine Meperidine HCl([facility] Code:[address]-84) out of dena dy experience Drug Allergy Active tramadol Tramadol([facility] Code:[address]-29) shakes Drug Allergy Active lidoderm (licocanine) heart races Drug Allergy Active gabapentin Gabapentin([facility] Code:[address]-14) nervous syste m,shakey Drug Allergy Active aspirin Aspirin([facility] Code:[address]-01) Hives Drug Allergy Active fentanyl Fentanyl([facility] Code:[address]-03) nervous Drug Allergy Active albuterol Albuterol Sulfate([facility] Code:[address]-79) cough Drug Allergy Active quinolones- cipro,tequin Hives Drug Allergy Active ENCOUNTERS from 1960 to 2020-04-18 Encounter Location Date Provider Diagnosis [address] [address] Apr, Ovi Bai, initial encounter W19.XXXA IMMUNIZATIONS Vaccine Route Administration Date Status Toradol [...] Education Language: Question Answer Notes Languages spoken: Marshallese Tenriism: Question Answer Notes Tenriism 15 [employer] Sexual Hx: Question Answer Notes [...] Orally bid for 7 days Mar, Not-Taking Nebulizer Compressor 1 inh dx: J45.909 every 4 hours as needed f or 90 day(s) August, Active Victoza 18 MG/3ML 0.6mg daily x 1 week, theni ncreast to 1.2mg daily Subcutaneous Daily for 28 day(s) Mar, Active Test Strips - - Dx: E11.65 four times daily as needed for 30 D ays Jun, Active Lactulose 20 GM/30ML 15 ml Orally three times daily for 30 Active Mesalamine 1000 MG 1 suppository at bedtime Rectal Once a day fo r 30 day(s) Mar, Active Simethicone 80 MG 2 tablets after meals and at bedtime as needed Orally three times a day as needed for abdominal pain and distention for 30 Active Nystatin 065999 UNIT/GM APPLY TO AFFECTED AREA(S) AR OUND STOMA 2 TIMES A DAY DIRECTED UNTIL HEALED for 14 Act nba Mometasone Furoate 50 MCG/ACT 2 sprays in each nostril Nasally Once a day for 30 day(s) Mar, Active Triamcinolone Acetonide 0.1 % apply a [...] hrs PRN for 30 days Dec, Active Levemir Flex Touch 100 UNIT/ML 35 units Subcutaneous in the morning for 30 Days Jul, Active Ciclopirox 8 % 1 application to the l 5th f ingernail Externally Once a day, clean off with an alcohol prep pad once a week for 90 day(s) Mar, Active Pen [place] 08/27" as directed subcutaneously Daily dx: E11.65 fo r 90 day(s) Jul, Active Alcohol Prep Pad 70 % as directed E11.9 test blood sugar QID PRN for 30 Days Jun, Active Estradiol 0.1 MG/GM 1 gram Vaginal daily Oct, Active Bentyl 10 MG 1 capsule Orally [...] for 30 Days Jun, A ctive May [place] Bags (52814) ICD:v55.3 change as needed (Payton cao) for 30 day(s) Active May have jerome wafers flating flanges ICD: v55.3 ( 45641 2 1/2 change as needed (Tatianna) Active PROCEDURES No Information RESULTS No Results REASON FOR VISIT joselin culp MEDICAL (GENERAL) HISTORY Type Description Date Medical [...] Treatment Notes Treatm ent Clinical Notes Apr, Fall, initial encounter (ICD-10 - W19.XXXA) Patient says that the sinus drainage has improved however, her headache has not improved. Patient has been taking Tylenol around the clock which is giving her minimal to no relief. Patient states that she fell and hit her head on a bed and fell again last night and hit her head. I ordered a CT of the head and maxillofacial without contrast to rule out a possible skull fracture. PLAN OF TREATMENT Medication Medication Name Sig [...] Twice a day for 10 day(s) Mar, Ammonium Lactate 12 % 1 application Externally Twice a day t o feet for 30 Days Jun, Mesalamine 1000 MG 1 suppository at bedtime Rectal Once a d ay for 30 day(s) Mar, Mometasone Furoate 50 MCG/ACT 2 sprays in each nostril Nasally Once a day for 30 day(s) Mar, Lactulose 20 GM/30ML 15 ml Orally three times daily for 30 Treatment Notes Assessment Notes Clinical Notes Fall, initial encounter Patient says that the sinus drainage has improved however, her headache has not improved. Patient has been taking Tylenol around the clock which is giving her minimal to no relief. Patient states that she fell and hit her head on a bed and fell again last night and hit her head. I ordered a CT of the head and maxillofacial without contrast to rule out a possible skull fracture. Treatment Notes Test Name Order Date [facility] CT Head without contrast 2020-04-18 CT Maxillofacial w/out Contrast 2020-04-18 Next Appt Details Provider Name:Peyton Avila, 10:00:00 AM, [address] [place], [address], Provider Name:Tutu Sanchez, 2020-04-15 9 01:30:00 PM, [address] [place], [address], Provider Name:Deann El, 2020-06-26 10 :00:00 AM, [address] [place], [address], Insurance Providers Payer Name Payer Address Payer Phone Insured Name Patient Relati onship to Insured Coverage Start Date Coverage End Date [facility] [address] [facility] [id number] RUBA GRAFF,GLENN COOPER self
--- OUTSIDE RECORDS SUMMARY | 2020-05-27 08:55 | CCD ---
Author Author [facility] Organization [facility] Address Unknown Phone Unavailable Care Team Providers Care School Janitor Name Role Phone Tutu Sanchez Unavailable PROBLEMS Type Condition ICD9-CM Code AAI20-DC Code Onset Dates Condition S tatus SNOMED Code Notes Problem 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 Active 26 323109 Problem Unspecified asthma J45.909 Active 728236145 Problem Complicated headache syndromes G44.59 Active 2 92451070 Problem Chronic nausea R11.0 Active 308252153 Problem Chronic maxillary sinusitis J32.0 Active 3592 3002 Problem History of abdominal surgery Z98.890 Active 161 822592 Problem Allergic rhinitis, unspecified seasonality, unspecifie d trigger J30.9 Active 00832237 Problem Internal hemorrhoids without mention of complication K64.8 Active 68936146 Problem Viral warts, unspecified B07.9 Active 4583242 3 Problem DM w/o complication type II, uncontrolled E11.65 Active 48362840 Problem Pelvic muscle wasting N81.84 Active 90119257 Problem Mixed hyperlipidemia E78.2 Active 548920338 Problem Anemia, chronic disease D63.8 Active 19874927 6 Problem Breast calcification seen on mammogram R92.1 A ctive 833823538 Problem Esophageal reflux K21.9 Active 133322839 Problem Chronic pain associated with significant psychos ocial dysfunction G89.4 Active 589294119 Problem Low back pain M54.5 Active 657516188 Problem Dysfunction of eustachian tube, bilateral H69.83 Active 13575387 Problem DM w/o complication type II E11.9 Active 3134 22760 Problem Fatty liver K76.0 Active 490318505 Problem Chronic prescription opiate use Z79.899 Active 091868693 Problem Occipital neuralgia M54.81 Active 96907464 Problem Multiple drug allergies Z88.9 Active 41750343 2 Problem senior living (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 Z79.4 Activ e 908089257 Problem Myalgia M79.1 Active 35003203 Problem Granulomatous disorder of the skin and s ubcutaneous tissue, unspecified L92.9 Active 629540975 Problem Type 2 diabetes mellitus with stage 3 chronic kidney disea se E11.22 Active 14071380 Problem Hypomagnesemia E83.42 Active 767920276 Problem Ileostomy status Z93.2 Active 560086981 Problem Chronic kidney disease, stage III (moderate) N18.3 Active 445260186 Problem Complex regional pain syndrome I of left lower limb G90.522 Active 870755861 Problem Spinal cord stimulator status Z96.89 Active 12 4263822 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 Active 477502576 Problem Encounter for care related to vascular access port Z45.2 Active 133228090 Problem Myalgia, other site M79.18 Active 79939032 Problem Type 2 diabetes mellitus without complications E11 .9 Active 484660888 Problem Constipation, unspecified constipation type K59.00 Active 45402439 Problem Hypoglycemia E16.2 Active 559071628 Problem Left lower quadrant pain R10.32 Active 0624236 02 Problem Pseudogout M11.20 Active 229200869 Problem Flexural eczema L20.82 Active 81116992 Problem Falls frequently R29.6 Active 145648279 Problem Disorders of magnesium metabolism, unspecified E83 .40 Active 21942017 Problem Other chronic pain G89.29 Active 19245965 Problem Port catheter in place Z95.828 Active 974305354 Problem Grief F43.20 Active 107906767 Problem Cervicalgia M54.2 Active 36187588 Problem Rosacea L71.9 Active 196892378 Problem Vaginal atrophy N95.2 Active 733719149 Problem Incisional hernia with obstruction but no gangrene K43.0 Active 180965521 ALLERGIES Allergen (clinical drug ingredient) Drug/Non Drug Allergy do cumented on EMR Reaction Allergy Type Onset Date Status morphine Morphine Sulfate([facility] Code:[address]-51) severe h/a with big dose Drug Allergy Active codeine Codeine Sulfate([facility] Code:[address]-24) out of b vito experience Drug Allergy Active red food dye rash Non Drug Allergy Active Gastrografin([facility] Code:[address]-53) Onl y 1 bottle per test day (can not tolerate any more than 1 bottle) Drug Allergy Active tiagabine Gabitril([facility] Code:[address]-49) nervous Drug Allergy Active ketorolac Ketorolac Tromethamine([facility] Code:[address]-23) vomitin g Drug Allergy Active Vicodin Confusion Drug Allergy Active Penicillin (For Allergies Use Only) Hives Drug Allerg y Active sulfa Hives Drug Allergy Active Baclofen affected nervous syt Drug Allergy Ac tive promethazine Promethazine HCl([facility] Code:[address]-33) out of body experience Drug Allergy Active Readi-Cat Hives Drug Allergy Active iodine nerves, tight muscles Drug Allergy A ctive tizanidine Tizanidine HCl([facility] Code:[address]-36) Hives Drug All ergy Active droperidol Droperidol([facility] Code:[address]-45) out of body Drug Allerg y Active Latex (for allergy use only) difficulty Drug Allergy Active pregabalin Lyrica shakes, everything is black Drug Allergy Active azithromycin Azithromycin([facility] Code:[address]-00) hives Drug All ergy Active phenothiazines nervous system Drug Allergy Acti ve lorazepam Ativan([facility] Code:[address]-98) hallucinations Drug Allergy Active Oxycodone vomiting,hives Drug Allergy Active nitrofurantoin, macrocrystals / nitrofurantoin, monohy drate Macrobid([facility] Code:[address]-00) Hives, blurred vision Drug Allergy Active meperidine Meperidine HCl([facility] Code:[address]-08) out of dena dy experience Drug Allergy Active tramadol Tramadol([facility] Code:[address]-02) shakes Drug Allergy Active lidoderm (licocanine) heart races Drug Allergy Active gabapentin Gabapentin([facility] Code:[address]-83) nervous syste m,shakey Drug Allergy Active aspirin Aspirin([facility] Code:[address]-05) Hives Drug Allergy Active fentanyl Fentanyl([facility] Code:[address]-38) nervous Drug Allergy Active albuterol Albuterol Sulfate([facility] Code:[address]-63) cough Drug Allergy Active quinolones- cipro,tequin Hives Drug Allergy Active ENCOUNTERS from 1960 to 2020-04-22 Encounter Location Date Provider Diagnosis [address] [address] Apr, Tutu Sanchez 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.4 IMMUNIZATIONS Vaccine Route Administration Date Status Toradol [...] Language: Question Answer Notes Languages spoken: Azeri Sabianist: Question Answer Notes Sabianist 15 [employer] Sexual Hx: Question Answer Notes [...] needed for 90 day(s) August, Active Nystatin 050041 UNIT/GM APPLY TO AFFECTED AREA(S) AR OUND [...] week for 90 day(s) Mar, Active Pen [place] 08/27" as directed subcutaneously Daily dx: E11.65 [...] for 30 Days Jun, A ctive May [place] Bags (66622) ICD:v55.3 change as needed (Payton cao) for 30 day(s) Active May have jerome wafers flating flanges ICD: v55.3 ( 16137 2 1/2 change as needed (Tatianna) Active PROCEDURES No Information RESULTS No Results REASON FOR VISIT Levemir Flex Touch 100 UNIT/ML Solution MEDICAL (GENERAL) HISTORY Type Description Date Medical [...] Treatment Notes Treatm ent Clinical Notes Apr, 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
--- OUTSIDE RECORDS SUMMARY | 2020-05-27 08:55 | CCD ---
Author Author [facility] Organization [facility] Address Unknown Phone Unavailable Care Team Providers Care Turkey Roll Maker Name Role Phone Tutu Sanchez Unavailable PROBLEMS Type Condition ICD9-CM Code JNE19-HE Code Onset Dates Condition S tatus SNOMED Code Notes Problem 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 Active 26 953342 Problem Unspecified asthma J45.909 Active 475173306 Problem Complicated headache syndromes G44.59 Active 2 03028940 Problem Chronic nausea R11.0 Active 570307413 Problem Chronic maxillary sinusitis J32.0 Active 3592 3002 Problem History of abdominal surgery Z98.890 Active 161 022334 Problem Allergic rhinitis, unspecified seasonality, unspecifie d trigger J30.9 Active 15876035 Problem Internal hemorrhoids without mention of complication K64.8 Active 24419184 Problem Viral warts, unspecified B07.9 Active 3653312 3 Problem DM w/o complication type II, uncontrolled E11.65 Active 35589433 Problem Pelvic muscle wasting N81.84 Active 95663575 Problem Mixed hyperlipidemia E78.2 Active 349006859 Problem Anemia, chronic disease D63.8 Active 10035526 6 Problem Breast calcification seen on mammogram R92.1 A ctive 505887635 Problem Esophageal reflux K21.9 Active 565207158 Problem Chronic pain associated with significant psychos ocial dysfunction G89.4 Active 050240146 Problem Low back pain M54.5 Active 365051606 Problem Dysfunction of eustachian tube, bilateral H69.83 Active 87733761 Problem DM w/o complication type II E11.9 Active 3134 79837 Problem Fatty liver K76.0 Active 017742849 Problem Chronic prescription opiate use Z79.899 Active 688572802 Problem Occipital neuralgia M54.81 Active 27936261 Problem Multiple drug allergies Z88.9 Active 48781757 2 Problem correction (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 Z79.4 Activ e 229269086 Problem Myalgia M79.1 Active 47844620 Problem Granulomatous disorder of the skin and s ubcutaneous tissue, unspecified L92.9 Active 801354279 Problem Type 2 diabetes mellitus with stage 3 chronic kidney disea se E11.22 Active 26788287 Problem Hypomagnesemia E83.42 Active 383479778 Problem Ileostomy status Z93.2 Active 080671370 Problem Chronic kidney disease, stage III (moderate) N18.3 Active 787029380 Problem Complex regional pain syndrome I of left lower limb G90.522 Active 824341298 Problem Spinal cord stimulator status Z96.89 Active 12 1985893 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 Active 906172398 Problem Encounter for care related to vascular access port Z45.2 Active 184048310 Problem Myalgia, other site M79.18 Active 36279071 Problem Type 2 diabetes mellitus without complications E11 .9 Active 393057093 Problem Constipation, unspecified constipation type K59.00 Active 37574794 Problem Hypoglycemia E16.2 Active 449356441 Problem Left lower quadrant pain R10.32 Active 6483531 02 Problem Pseudogout M11.20 Active 639141263 Problem Flexural eczema L20.82 Active 80634721 Problem Falls frequently R29.6 Active 395636202 Problem Disorders of magnesium metabolism, unspecified E83 .40 Active 17430608 Problem Other chronic pain G89.29 Active 39802597 Problem Port catheter in place Z95.828 Active 705145724 Problem Grief F43.20 Active 338673761 Problem Cervicalgia M54.2 Active 62311029 Problem Rosacea L71.9 Active 165453603 Problem Vaginal atrophy N95.2 Active 160551176 Problem Incisional hernia with obstruction but no gangrene K43.0 Active 664761637 ALLERGIES Allergen (clinical drug ingredient) Drug/Non Drug Allergy do cumented on EMR Reaction Allergy Type Onset Date Status morphine Morphine Sulfate([facility] Code:[address]-29) severe h/a with big dose Drug Allergy Active codeine Codeine Sulfate([facility] Code:[address]-24) out of b vito experience Drug Allergy Active red food dye rash Non Drug Allergy Active Gastrografin([facility] Code:[address]-25) Onl y 1 bottle per test day (can not tolerate any more than 1 bottle) Drug Allergy Active tiagabine Gabitril([facility] Code:[address]-15) nervous Drug Allergy Active ketorolac Ketorolac Tromethamine([facility] Code:[address]-44) vomitin g Drug Allergy Active Vicodin Confusion Drug Allergy Active Penicillin (For Allergies Use Only) Hives Drug Allerg y Active sulfa Hives Drug Allergy Active Baclofen affected nervous syt Drug Allergy Ac tive promethazine Promethazine HCl([facility] Code:[address]-07) out of body experience Drug Allergy Active Readi-Cat Hives Drug Allergy Active iodine nerves, tight muscles Drug Allergy A ctive tizanidine Tizanidine HCl([facility] Code:[address]-44) Hives Drug All ergy Active droperidol Droperidol([facility] Code:[address]-35) out of body Drug Allerg y Active Latex (for allergy use only) difficulty Drug Allergy Active pregabalin Lyrica shakes, everything is black Drug Allergy Active azithromycin Azithromycin([facility] Code:[address]-13) hives Drug All ergy Active phenothiazines nervous system Drug Allergy Acti ve lorazepam Ativan([facility] Code:[address]-83) hallucinations Drug Allergy Active Oxycodone vomiting,hives Drug Allergy Active nitrofurantoin, macrocrystals / nitrofurantoin, monohy drate Macrobid([facility] Code:[address]-17) Hives, blurred vision Drug Allergy Active meperidine Meperidine HCl([facility] Code:[address]-89) out of dena dy experience Drug Allergy Active tramadol Tramadol([facility] Code:[address]-32) shakes Drug Allergy Active lidoderm (licocanine) heart races Drug Allergy Active gabapentin Gabapentin([facility] Code:[address]-28) nervous syste m,shakey Drug Allergy Active aspirin Aspirin([facility] Code:[address]-92) Hives Drug Allergy Active fentanyl Fentanyl([facility] Code:[address]-74) nervous Drug Allergy Active albuterol Albuterol Sulfate([facility] Code:[address]-16) cough Drug Allergy Active quinolones- cipro,tequin Hives Drug Allergy Active ENCOUNTERS from 1960 to 2020-04-23 Encounter Location Date Provider Diagnosis [address] [address] Feb, Tutu Sanchez Weakness of left lower extremity R29.898 ; Complex regional pain syndrome I of left lower limb G90.522 ; Rectal bleeding K62.5 ; Cyst of right Bartholin's gland N75.0 and 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 IMMUNIZATIONS Vaccine Route Administration Date Status Toradol [...] Education Language: Question Answer Notes Languages spoken: Palestinian Confucianist: Question Answer Notes 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 [employer] Sexual Hx: Question Answer Notes [...] FOR REFERRAL No Information VITAL SIGNS Weight 173.08 lbs Feb, Height 67 in Feb, BMI 27.11 kg/m2 Feb, Heart Rate 103 /min Feb, Respiratory Rate 18 /min Feb, Temperature 97.3 degrees Fahrenheit Feb, Oximetry 97 Feb, Blood pressure systolic 116 mm Hg Feb, Blood pressure diastolic 70 mm Hg Feb, MEDICATIONS Medication SIG (Take, Route, Frequency, Duration) [...] needed for 90 day(s) August, Active Nystatin 764723 UNIT/GM APPLY TO AFFECTED AREA(S) AR OUND [...] week for 90 day(s) Mar, Active Pen [place] 5/16" as directed subcutaneously Daily dx: E11.65 [...] Days Jun, A ctive May [place] Bags (10638) ICD:v55.3 change as needed (Payton nash) for 30 day(s) Active May have flakita wafers flating flanges ICD: v55.3 ( 54442 2 1/2 change as needed (Tatianna) Active PROCEDURES No Information RESULTS No Results REASON FOR VISIT follow up after procedure MEDICAL (GENERAL) HISTORY Type Description Date Medical [...] 03/2016 Hospitalization History [facility]- small bowel obstruction -04/17/16 Hospitalization History [facility]- small bowel obstruction 06/2016 [...] Notes Treatment Notes Treatm ent Clinical Notes Feb, Weakness of left lower extremity (ICD-10 - R29.8 98) She has progressive weakness, but it is unilateral and she feels that her CRS has a lot to do with it. I will send her to neurology to see if they can do anything for her. We can send her to P/T for a wheel chair evaluation too, but I'd much rather that she remain mobile, so I'd like to see what Neuro has to say first. Feb, Complex regional pain syndro me I of left lower limb (ICD-10 - G90.522) She has had this for many years. It is currently controlled reasonably well with a dorsal column stimulator. Feb, Rectal bleeding (ICD-10 - K62.5) She had what sounds like a relatively unremakable sigmoidiscopy of her rectal stump. They are trying to calm the tissues with mesalamine. If this doesn't work then she will need to discuss further options with her surgeon. Feb, Cyst of right Bartholin's gland (ICD-10 - N75.0) This is part of why she can't sit well today. It appears to be resolving on its own; I do not think she would benefit from it being I&D'd today. Feb, Acquired short bowel syndrome (ICD-10 - K91.2) This continues to complicate her medical history and management. PLAN OF TREATMENT Medication Medication Name Sig [...] Mar, Treatment Notes Assessment Notes Clinical Notes Weakness of left lower extremity She has progressive weakness, but it is unilateral and she feels that her CRS has a lot to do with it. I will send her to neurology to see if they can do anything for her. We can send her to P/T for a wheel chair evaluation too, but I'd much rather that she remain mobile, so I'd like to see what Neuro has to say first. Complex regional pain syndrome I of left lower limb She has had this for many years. It is currently controlled reasonably well with a dorsal column stimulator. Rectal bleeding She had what sounds like a relatively unremakable sigmoidiscopy of her rectal stump. They are trying to calm the tissues with mesalamine. If this doesn't work then she will need to discuss further options with her surgeon. Cyst of right Bartholin's gland This is part of why she can't sit well today. It appears to be resolving on its own; I do not think she would benefit from it being I&D'd today. Acquired short bowel syndrome This gerda nues to complicate her medical history and management. Next Appt Details 4 Weeks Reason:follow diabetes Provider Name:Peyton Avila, 10:00:00 AM, [address] [place], [address], Provider Name:Tutu Sanchez, 2020-04-15 9 01:30:00 PM, [address] [place], [address], Provider Name:Deann El, 2020-06-26 10 :00:00 AM, [address] [place], [address], Follow Up:4 Weeksfollow diabetes Insurance Providers Payer Name Payer Address Payer Phone Insured Name Patient Relati onship to Insured Coverage Start Date Coverage End Date [facility] [address] [facility] [phone] RUBA GRAFF,GLENN COOPER self
--- OUTSIDE RECORDS SUMMARY | 2020-05-27 08:56 | CCD ---
Author Author [facility] Organization [facility] Address Unknown Phone Unavailable Care Team Providers Care Outreach Educator Name Role Phone Peyton Avila Unavailable PROBLEMS Type Condition ICD9-CM Code NFA08-GJ Code Onset Dates Condition S tatus SNOMED Code Notes Problem 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 Active 26 707678 Problem Unspecified asthma J45.909 Active 570166318 Problem Complicated headache syndromes G44.59 Active 2 04682306 Problem Chronic nausea R11.0 Active 613291708 Problem Chronic maxillary sinusitis J32.0 Active 3592 3002 Problem History of abdominal surgery Z98.890 Active 161 028815 Problem Allergic rhinitis, unspecified seasonality, unspecifie d trigger J30.9 Active 56837158 Problem Internal hemorrhoids without mention of complication K64.8 Active 24829225 Problem Viral warts, unspecified B07.9 Active 7415779 3 Problem DM w/o complication type II, uncontrolled E11.65 Active 16354449 Problem Pelvic muscle wasting N81.84 Active 74205584 Problem Mixed hyperlipidemia E78.2 Active 834982392 Problem Anemia, chronic disease D63.8 Active 11888652 6 Problem Breast calcification seen on mammogram R92.1 A ctive 368354827 Problem Esophageal reflux K21.9 Active 523048310 Problem Chronic pain associated with significant psychos ocial dysfunction G89.4 Active 610496260 Problem Low back pain M54.5 Active 021333628 Problem Dysfunction of eustachian tube, bilateral H69.83 Active 99592149 Problem DM w/o complication type II E11.9 Active 3134 62550 Problem Fatty liver K76.0 Active 860327461 Problem Chronic prescription opiate use Z79.899 Active 022143270 Problem Occipital neuralgia M54.81 Active 60574075 Problem Multiple drug allergies Z88.9 Active 57871992 2 Problem [facility] (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 Z79.4 Activ e 078202763 Problem Myalgia M79.1 Active 03110582 Problem Granulomatous disorder of the skin and s ubcutaneous tissue, unspecified L92.9 Active 974235218 Problem Type 2 diabetes mellitus with stage 3 chronic kidney disea se E11.22 Active 39310749 Problem Hypomagnesemia E83.42 Active 002734089 Problem Ileostomy status Z93.2 Active 462927886 Problem Chronic kidney disease, stage III (moderate) N18.3 Active 284154208 Problem Complex regional pain syndrome I of left lower limb G90.522 Active 806868985 Problem Spinal cord stimulator status Z96.89 Active 12 2058536 Problem 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 Active 636787033 Problem Encounter for care related to vascular access port Z45.2 Active 446686270 Problem Myalgia, other site M79.18 Active 51707032 Problem Type 2 diabetes mellitus without complications E11 .9 Active 102034571 Problem Constipation, unspecified constipation type K59.00 Active 70528774 Problem Hypoglycemia E16.2 Active 136460325 Problem Left lower quadrant pain R10.32 Active 4402955 02 Problem Pseudogout M11.20 Active 108899934 Problem Flexural eczema L20.82 Active 22385082 Problem Falls frequently R29.6 Active 540788388 Problem Disorders of magnesium metabolism, unspecified E83 .40 Active 14507269 Problem Other chronic pain G89.29 Active 34300848 Problem Port catheter in place Z95.828 Active 593868575 Problem Grief F43.20 Active 893208037 Problem Cervicalgia M54.2 Active 35325858 Problem Rosacea L71.9 Active 971969273 Problem Vaginal atrophy N95.2 Active 842417669 Problem Incisional hernia with obstruction but no gangrene K43.0 Active 480364361 ALLERGIES Allergen (clinical drug ingredient) Drug/Non Drug Allergy do cumented on EMR Reaction Allergy Type Onset Date Status morphine Morphine Sulfate([facility] Code:[address]-00) severe h/a with big dose Drug Allergy Active codeine Codeine Sulfate([facility] Code:[address]-48) out of b vito experience Drug Allergy Active red food dye rash Non Drug Allergy Active Gastrografin([facility] Code:[address]-95) Onl y 1 bottle per test day (can not tolerate any more than 1 bottle) Drug Allergy Active tiagabine Gabitril([facility] Code:[address]-18) nervous Drug Allergy Active ketorolac Ketorolac Tromethamine([facility] Code:[address]-98) vomitin g Drug Allergy Active Vicodin Confusion Drug Allergy Active Penicillin (For Allergies Use Only) Hives Drug Allerg y Active sulfa Hives Drug Allergy Active Baclofen affected nervous syt Drug Allergy Ac tive promethazine Promethazine HCl([facility] Code:[address]-39) out of body experience Drug Allergy Active Readi-Cat Hives Drug Allergy Active iodine nerves, tight muscles Drug Allergy A ctive tizanidine Tizanidine HCl([facility] Code:[address]-02) Hives Drug All ergy Active droperidol Droperidol([facility] Code:[address]-32) out of body Drug Allerg y Active Latex (for allergy use only) difficulty Drug Allergy Active pregabalin Lyrica shakes, everything is black Drug Allergy Active azithromycin Azithromycin([facility] Code:[address]-10) hives Drug All ergy Active phenothiazines nervous system Drug Allergy Acti ve lorazepam Ativan([facility] Code:[address]-20) hallucinations Drug Allergy Active Oxycodone vomiting,hives Drug Allergy Active nitrofurantoin, macrocrystals / nitrofurantoin, monohy drate Macrobid([facility] Code:[address]-85) Hives, blurred vision Drug Allergy Active meperidine Meperidine HCl([facility] Code:[address]-25) out of dena dy experience Drug Allergy Active tramadol Tramadol([facility] Code:[address]-60) shakes Drug Allergy Active lidoderm (licocanine) heart races Drug Allergy Active gabapentin Gabapentin([facility] Code:[address]-30) nervous syste m,shakey Drug Allergy Active aspirin Aspirin([facility] Code:[address]-20) Hives Drug Allergy Active fentanyl Fentanyl([facility] Code:[address]-31) nervous Drug Allergy Active albuterol Albuterol Sulfate([facility] Code:[address]-43) cough Drug Allergy Active quinolones- cipro,tequin Hives Drug Allergy Active ENCOUNTERS from 1960 to 2020-04-04 Encounter Location Date Provider Diagnosis [address] [address] Mar, Peyton Avila DM w/o complication type II, uncontrolle d E11.65 ; [facility] (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 Z79.4 and Mixed [...] 23) IM Intramuscular Feb 22, 2013 Administered Pneumococcal Adult 0.5mL (Pneumovax 23) Unknown Jan [...] IM Intramuscular September 09, 2017 Ad ministered Hepatitis A & B 1mL (Twinrix) IM Intramuscular Apr 15, 2012 A dministered Toradol 60mg/2mL (Ketorolac) IM Intramuscular September 22, 2017 Ad ministered Toradol 60mg/2mL (Ketorolac) IM Intramuscular Apr 22, 2016 Ad ministered Toradol 60mg/2mL (Ketorolac) IM Intramuscular August 27, 2017 Ad ministered Influenza (6mo & up) Fluzone IM Intramuscular Dec 31, 2013 Ad ministered Toradol 60mg/2mL (Ketorolac) IM Intramuscular September 03, 2017 Ad ministered Influenza (6mo & up) Fluzone IM Intramuscular Jan 20, 2015 Ad ministered Toradol 60mg/2mL (Ketorolac) IM Intramuscular September 04, 2017 Ad ministered Influenza (6mo & up) [...] IM Intramuscular September 23, 2017 Ad ministered Rocephin 1gm (Ceftriaxone) IM [...] September Administered Toradol 60mg/2mL (Ketorolac) IM Intramuscular Jan 07, 2017 Ad ministered Rocephin 1gm (Ceftriaxone) IM Intramuscular May 22, 2017 Admi nistered Toradol 60mg/2mL (Ketorolac) IM Intramuscular 2017 Ad ministered Toradol 60mg/2mL (Ketorolac) IM Intramuscular September 25, 2017 Ad ministered Toradol 60mg/2mL (Ketorolac) IM Intramuscular Jan 10, 2017 Ad ministered Toradol 60mg/2mL (Ketorolac) IM Intramuscular September 26, 2017 Ad ministered Rocephin 1gm (Ceftriaxone) IM [...] Education Language: Question Answer Notes Languages spoken: Citizen Of [place] Jew: Question Answer Notes Jew 15 Presbyterian Sexual Hx: Question Answer Notes [...] Notes Start Da te End Date Status May have jerome wafers flating flanges ICD: v55.3 ( 81200 2 1/2 change as needed (Tatianna) Active Dicyclomine HCl 10 MG 1 capsule Orally four times daily for 30 Days Active Lancets Misc. - One touch delica 33G lancets Dx: E11.65 four times daily as needed for 30 Days Jun, Active Baby Wipes 1 as directed topically prn dx:569.62 for 7 day(s) Active Ipratropium-Albuterol 0.5-2.5 (3) MG/3ML 3 ml Inhalati on every 6 hrs PRN for 30 days Dec, Active Victoza 18 MG/3ML 0.6mg daily x 1 week, theni ncreast to 1.2mg daily Subcutaneous Daily for 28 day(s) Mar, Active Albuterol Sulfate HFA 108 (90 Base) MCG/ACT 2 puffs as needed Inhalation every 4 hrs prn for 30 Days Active Pen [place] 08/27" as directed subcutaneously Daily dx: E11.65 fo r 90 day(s) Jul, Active August Assaria Bags (50109) ICD:v55.3 change as needed (Payton cao) for 30 day(s) Active Sucralfate 1 GM 1 tab Orally Twice a day for 30 days Active Estradiol 0.1 MG/GM 1 gram Vaginal daily Oct, Active Pedialyte bottle 330 ml Orally three times daily for 30 days Active Zofran 4 MG/2ML 4 mg Injection BID at least 8h apart for 30 days Nov, Active Syringe 2-3 ML 3 ML dx: r11.0 intramuscularly tid prn for 30 Day s Feb, Active Hospital bed use daily as directed dx: K9 1.2, G89.4, G90.522, N81.84 for 99 days May, Active Amitriptyline HCl 50 MG as directed Orally 1 tab in am and 3 tabs at bedtime for 30 Days Active Test Strips - - Dx: E11.65 four times daily as needed for 30 D ays Jun, Active Ammonium Lactate 12 % 1 application Externally Twice a day t o feet for 30 Days Jun, Active Simethicone 80 MG 2 tablets after meals and at bedtime as needed Orally three times a day as needed for abdominal pain and distention for 30 Active Doxycycline Hyclate 100 MG 1 tablet Orally bid for 7 days Mar, Not-Taking Sodium Chloride 0.9 % one application inside the R nostril every 2 hrs prn for 7 day(s) Mar, Active Metoclopramide HCl 10 MG 1 tablet before meals and be dtime Orally three times daily before meals for 30 Days Jun, A ctive Lactulose 20 GM/30ML 15 ml Orally three times daily for 30 Active Ciclopirox 8 % 1 application to the l 5th f ingernail Externally Once a day, clean off with an alcohol prep pad once a week for 90 day(s) Mar, Active Nystatin 445225 UNIT/GM APPLY TO AFFECTED AREA(S) AR OUND STOMA 2 TIMES A DAY DIRECTED UNTIL HEALED for 14 Act nba Alcohol Prep Pad 70 % as directed E11.9 test blood sugar QID PRN for 30 Days Jun, Active Glucometer testing 4 times a day and as needed Dx: E11/65 f or 30 days Jun, Active Bentyl 10 MG 1 capsule Orally Four times a day prn abdominal cramping for 30 Days Active Nebulizer Compressor 1 inh dx: J45.909 every 4 hours as needed f or 90 day(s) August, Active Triamcinolone Acetonide 0.1 % apply a thin layer to re d areas on fingers Externally Twice a day for 30 Days Active Nebulizer/Tubing/Mouthpiece - as directed dx: J45.909 every 4 hours as needed for 90 day(s) August, Active Levemir Flex Touch 100 UNIT/ML 35 units Subcutaneous in the morning for 30 Days Jul, Active PROCEDURES No Information RESULTS No Results [...] History battery replacement for stimulator 03/03 18 Surgical History hernia repain 12/2019 Hospitalization History [facility]- small bowel obstruction, was [...] Notes Treatment Notes Treatm ent Clinical Notes Mar, DM w/o complication type II, uncontrolled (ICD-1 0 - E11.65) Mar, [facility] (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 (ICD-10 - Z79 .4) Mar, Mixed hyperlipidemia (ICD-10 - E78.2) PLAN OF TREATMENT Next Appt Details 4 Weeks Reason:05/09/2019 at 10 am Provider Name:Peyton Avila, 10:00:00 AM, [address] [place], [address], Provider Name:Tutu Sanchez, 2020-04-15 9 01:30:00 PM, [address] [place], [address], Provider Name:Deann El, 2020-06-26 10 :00:00 AM, [address] [place], [address], Follow Up:4 Weeks05/09/2019 at 10 am Insurance Providers Payer Name Payer Address Payer Phone Insured Name Patient Relati onship to Insured Coverage Start Date [facility]age End Date [facility] [place] [address] [place] [address] RUBA GRAFF,GLENN COOPER self
--- OUTSIDE RECORDS SUMMARY | 2020-05-27 08:56 | CCD ---
Author Author [facility] Organization [facility] Address Unknown Phone Unavailable Care Team Providers Care Personnel Security Specialist Name Role Phone Ovi Antony Unavailable PROBLEMS Type Condition ICD9-CM Code YAC67-LO Code Onset Dates Condition S tatus SNOMED Code Notes Problem 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 Active 26 103843 Problem Unspecified asthma J45.909 Active 357133190 Problem Complicated headache syndromes G44.59 Active 2 11144936 Problem Chronic nausea R11.0 Active 103444106 Problem Chronic maxillary sinusitis J32.0 Active 3592 3002 Problem History of abdominal surgery Z98.890 Active 161 897106 Problem Allergic rhinitis, unspecified seasonality, unspecifie d trigger J30.9 Active 90863412 Problem Internal hemorrhoids without mention of complication K64.8 Active 24828340 Problem Viral warts, unspecified B07.9 Active 5874987 3 Problem DM w/o complication type II, uncontrolled E11.65 Active 08971899 Problem Pelvic muscle wasting N81.84 Active 04356983 Problem Mixed hyperlipidemia E78.2 Active 081759533 Problem Anemia, chronic disease D63.8 Active 76289494 6 Problem Breast calcification seen on mammogram R92.1 A ctive 169542082 Problem Esophageal reflux K21.9 Active 043850747 Problem Chronic pain associated with significant psychos ocial dysfunction G89.4 Active 846842527 Problem Low back pain M54.5 Active 637446469 Problem Dysfunction of eustachian tube, bilateral H69.83 Active 32988231 Problem DM w/o complication type II E11.9 Active 3134 96760 Problem Fatty liver K76.0 Active 141525515 Problem Chronic prescription opiate use Z79.899 Active 465480617 Problem Occipital neuralgia M54.81 Active 43385203 Problem Multiple drug allergies Z88.9 Active 31233155 2 Problem alf (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 Z79.4 Activ e 271197484 Problem Myalgia M79.1 Active 43743784 Problem Granulomatous disorder of the skin and s ubcutaneous tissue, unspecified L92.9 Active 059538693 Problem Type 2 diabetes mellitus with stage 3 chronic kidney disea se E11.22 Active 44179539 Problem Hypomagnesemia E83.42 Active 211904254 Problem Ileostomy status Z93.2 Active 133484367 Problem Chronic kidney disease, stage III (moderate) N18.3 Active 593839876 Problem Complex regional pain syndrome I of left lower limb G90.522 Active 117679741 Problem Spinal cord stimulator status Z96.89 Active 12 2706576 Problem 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 Active 663389114 Problem Encounter for care related to vascular access port Z45.2 Active 031147408 Problem Myalgia, other site M79.18 Active 65706402 Problem Type 2 diabetes mellitus without complications E11 .9 Active 635949044 Problem Constipation, unspecified constipation type K59.00 Active 18531581 Problem Hypoglycemia E16.2 Active 796298692 Problem Left lower quadrant pain R10.32 Active 9403689 02 Problem Pseudogout M11.20 Active 714446963 Problem Flexural eczema L20.82 Active 83525819 Problem Falls frequently R29.6 Active 077734644 Problem Disorders of magnesium metabolism, unspecified E83 .40 Active 22534473 Problem Other chronic pain G89.29 Active 30509214 Problem Port catheter in place Z95.828 Active 657675889 Problem Grief F43.20 Active 277904047 Problem Cervicalgia M54.2 Active 56568997 Problem Rosacea L71.9 Active 833002361 Problem Vaginal atrophy N95.2 Active 311993835 Problem Incisional hernia with obstruction but no gangrene K43.0 Active 563431569 ALLERGIES Allergen (clinical drug ingredient) Drug/Non Drug Allergy do cumented on EMR Reaction Allergy Type Onset Date Status morphine Morphine Sulfate([facility] Code:[address]-05) severe h/a with big dose Drug Allergy Active codeine Codeine Sulfate([facility] Code:[address]-28) out of b vito experience Drug Allergy Active red food dye rash Non Drug Allergy Active Gastrografin([facility] Code:[address]-93) Onl y 1 bottle per test day (can not tolerate any more than 1 bottle) Drug Allergy Active tiagabine Gabitril([facility] Code:[address]-83) nervous Drug Allergy Active ketorolac Ketorolac Tromethamine([facility] Code:[address]-14) vomitin g Drug Allergy Active Vicodin Confusion Drug Allergy Active Penicillin (For Allergies Use Only) Hives Drug Allerg y Active sulfa Hives Drug Allergy Active Baclofen affected nervous syt Drug Allergy Ac tive promethazine Promethazine HCl([facility] Code:[address]-33) out of body experience Drug Allergy Active Readi-Cat Hives Drug Allergy Active iodine nerves, tight muscles Drug Allergy A ctive tizanidine Tizanidine HCl([facility] Code:[address]-76) Hives Drug All ergy Active droperidol Droperidol([facility] Code:[address]-35) out of body Drug Allerg y Active Latex (for allergy use only) difficulty Drug Allergy Active pregabalin Lyrica shakes, everything is black Drug Allergy Active azithromycin Azithromycin([facility] Code:[address]-21) hives Drug All ergy Active phenothiazines nervous system Drug Allergy Acti ve lorazepam Ativan([facility] Code:[address]-20) hallucinations Drug Allergy Active Oxycodone vomiting,hives Drug Allergy Active nitrofurantoin, macrocrystals / nitrofurantoin, monohy drate Macrobid([facility] Code:[address]-44) Hives, blurred vision Drug Allergy Active meperidine Meperidine HCl([facility] Code:[address]-75) out of dena dy experience Drug Allergy Active tramadol Tramadol([facility] Code:[address]-44) shakes Drug Allergy Active lidoderm (licocanine) heart races Drug Allergy Active gabapentin Gabapentin([facility] Code:[address]-09) nervous syste m,shakey Drug Allergy Active aspirin Aspirin([facility] Code:[address]-06) Hives Drug Allergy Active fentanyl Fentanyl([facility] Code:[address]-77) nervous Drug Allergy Active albuterol Albuterol Sulfate([facility] Code:[address]-60) cough Drug Allergy Active quinolones- cipro,tequin Hives Drug Allergy Active ENCOUNTERS from 1960 to 2020-04-12 Encounter Location Date Provider Diagnosis [facility] [address] [facility] [place] [address] 30 Mar, 2020 Ovi Arpan Acute sinusitis, unspecified J01.90 ; Nasal polyp J33.9 ; Ileostomy status Z93.2 ; DM w/o complication type II, uncontrolled E11.65 ; Chronic nausea R11.0 and 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 IMMUNIZATIONS [...] Education Language: Question Answer Notes Languages spoken: Greenlandic Jain: Question Answer Notes Jain 15 Presbyterian Sexual Hx: Question Answer Notes [...] FOR REFERRAL No Information VITAL SIGNS Weight 183 lbs Mar, Height 67 in Mar, BMI 28.66 kg/m2 Mar, Heart Rate 102 /min Mar, Respiratory Rate 17 /min Mar, Temperature 97.3 degrees Fahrenheit Mar, Oximetry 98 Mar, Blood pressure systolic 112 mm Hg Mar, Blood pressure diastolic 76 mm Hg Mar, MEDICATIONS Medication SIG (Take, Route, Frequency, Duration) [...] pain and distention for 30 Active Nystatin 614430 UNIT/GM APPLY TO AFFECTED AREA(S) AR OUND [...] week for 90 day(s) Mar, Active Pen [place] 5/16" as directed subcutaneously Daily dx: E11.65 [...] for 30 Days Jun, A ctive May Jerome Bags (01233) ICD:v55.3 change as needed (Payton nash) for 30 day(s) Active May have jerome wafers flating flanges ICD: v55.3 ( 49740 2 1/2 change as needed (Tatianna) Active PROCEDURES No Information RESULTS No Results REASON FOR VISIT headaches MEDICAL (GENERAL) HISTORY Type Description Date Medical [...] Treatment Notes Treatm ent Clinical Notes Mar, Acute sinusitis, unspecified (ICD-10 - J01.90) Based on the patient's time course, I believe the patient has acute sinusitis. Patient has multiple allergies to antibiotics but has tolerated doxycycline in the past. I prescribed a ten-day course of doxycycline. Advised patient to use saline nasal spray to try to clean out her nostrils and stay hydrated as much as possible. Mar, Nasal polyp (ICD-10 - J33.9) Patient has a small nasal polyp on the septum. I will corticosteroid to help shrink this polyp. Advised patient she needs to use this for about 3 months. Advised patient to use a saline nasal spray checking out her nose much possible prior to using the corticosteroid. Mar, Ileostomy status (ICD-10 - Z93.2) I believe the patient has a possible recurrence of her parastomal hernia. Advised patient to call her general surgeon in order to have this further evaluated. Mar, DM w/o complication type II, uncontrolled (ICD-1 0 - E11.65) Patient needed a refill on this was refilled. Mar, Chronic nausea (ICD-10 - R11.0) Patient needed a refill. Mar, Acquired short bowel syndrome (ICD-10 - K91.2) Patient needed a refill Mar, Other Patient needed a refill on his medications. These have been refilled. PLAN OF TREATMENT Medication Medication Name Sig [...] 30 Treatment Notes Assessment Notes Clinical Notes Acute sinusitis, unspecified Based on the patient's ti me course, I believe the patient has acute sinusitis. Patient has multiple allergies to antibiotics but has tolerated doxycycline in the past. I prescribed a ten-day course of d oxycycline. Advised patient to use saline nasal spray to try to clean out her nostrils and stay hydrated as much as possible. Nasal polyp Patient has a small nasal po lyp on the septum. I will corticosteroid to help shrink this polyp. Advised patient she needs to use this for about 3 months. Advised patient to use a saline nasal spray checking out her nose much possible prior to using the corticosteroid. Ileostomy status I believe the patient has a possible recurrence of her parastomal hernia. Advised patient to call her general surgeon in order to have this further evaluated. DM w/o complication type II, uncontrolled Patient need ed a refill on this was refilled. Chronic nausea Patient needed a refill. Acquired short bowel syndrome Patient needed a refill Next Appt Details as scheduled with Dr. Sanchez Reason: Provider Name:Peyton Avila, 10:00:00 AM, [address] [place], [address], Provider Name:Tutu Sanchez, 2020-04-15 9 01:30:00 PM, [address] [place], [address], Provider Name:Deann El, 2020-06-26 10 :00:00 AM, [address] [place], [address], Insurance Providers Payer Name Payer Address Payer Phone Insured Name Patient Relati onship to Insured Coverage Start Date Coverage End Date [facility] [address] [facility] [place] [id number] RUBA GRAFF,GLENN COOPER self
--- OUTSIDE RECORDS SUMMARY | 2020-05-27 08:56 | CCD ---
Author Author [facility] Organization [facility] Address Unknown Phone Unavailable Care Team Providers Care Map Colorer Name Role Phone Tutu Sanchez Unavailable PROBLEMS Type Condition ICD9-CM Code [id number] Code Onset Dates Condition S tatus SNOMED Code Notes Problem 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 Active 26 174481 Problem Unspecified asthma J45.909 Active 142462441 Problem Complicated headache syndromes G44.59 Active 2 78468934 Problem Chronic nausea R11.0 Active 590606729 Problem Chronic maxillary sinusitis J32.0 Active 3592 3002 Problem History of abdominal surgery Z98.890 Active 161 808167 Problem Allergic rhinitis, unspecified seasonality, unspecifie d trigger J30.9 Active 67208885 Problem Internal hemorrhoids without mention of complication K64.8 Active 97329977 Problem Viral warts, unspecified B07.9 Active 9855352 3 Problem DM w/o complication type II, uncontrolled E11.65 Active 94782216 Problem Pelvic muscle wasting N81.84 Active 46108066 Problem Mixed hyperlipidemia E78.2 Active 688412255 Problem Anemia, chronic disease D63.8 Active 01331064 6 Problem Breast calcification seen on mammogram R92.1 A ctive 817213940 Problem Esophageal reflux K21.9 Active 582224506 Problem Chronic pain associated with significant psychos ocial dysfunction G89.4 Active 296439931 Problem Low back pain M54.5 Active 051887951 Problem Dysfunction of eustachian tube, bilateral H69.83 Active 31375234 Problem DM w/o complication type II E11.9 Active 3134 32355 Problem Fatty liver K76.0 Active 098749244 Problem Chronic prescription opiate use Z79.899 Active 288033801 Problem Occipital neuralgia M54.81 Active 16896974 Problem Multiple drug allergies Z88.9 Active 32186090 2 Problem retirement (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 Z79.4 Activ e 088388247 Problem Myalgia M79.1 Active 91649353 Problem Granulomatous disorder of the skin and s ubcutaneous tissue, unspecified L92.9 Active 068584450 Problem Type 2 diabetes mellitus with stage 3 chronic kidney disea se E11.22 Active 57993144 Problem Hypomagnesemia E83.42 Active 047171481 Problem Ileostomy status Z93.2 Active 420259720 Problem Chronic kidney disease, stage III (moderate) N18.3 Active 390340109 Problem Complex regional pain syndrome I of left lower limb G90.522 Active 294271884 Problem Spinal cord stimulator status Z96.89 Active 12 1854131 Problem 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.4 Active 058546282 Problem Encounter for care related to vascular access port Z45.2 Active 642620571 Problem Myalgia, other site M79.18 Active 32383618 Problem Type 2 diabetes mellitus without complications E11 .9 Active 376188400 Problem Constipation, unspecified constipation type K59.00 Active 18635330 Problem Hypoglycemia E16.2 Active 819371916 Problem Left lower quadrant pain R10.32 Active 4689384 02 Problem Pseudogout M11.20 Active 911120430 Problem Flexural eczema L20.82 Active 52640305 Problem Falls frequently R29.6 Active 940803179 Problem Disorders of magnesium metabolism, unspecified E83 .40 Active 49296970 Problem Other chronic pain G89.29 Active 01343922 Problem Port catheter in place Z95.828 Active 463013693 Problem Grief F43.20 Active 201393322 Problem Cervicalgia M54.2 Active 86993050 Problem Rosacea L71.9 Active 369126529 Problem Vaginal atrophy N95.2 Active 333416757 Problem Incisional hernia with obstruction but no gangrene K43.0 Active 922932131 ALLERGIES Allergen (clinical drug ingredient) Drug/Non Drug Allergy do cumented on EMR Reaction Allergy Type Onset Date Status morphine Morphine Sulfate([facility] Code:[address]-09) severe h/a with big dose Drug Allergy Active codeine Codeine Sulfate([facility] Code:[address]-99) out of b vito experience Drug Allergy Active red food dye rash Non Drug Allergy Active Gastrografin([facility] Code:[address]-89) Onl y 1 bottle per test day (can not tolerate any more than 1 bottle) Drug Allergy Active tiagabine Gabitril([facility] Code:[address]-56) nervous Drug Allergy Active ketorolac Ketorolac Tromethamine([facility] Code:[address]-29) vomitin g Drug Allergy Active Vicodin Confusion Drug Allergy Active Penicillin (For Allergies Use Only) Hives Drug Allerg y Active sulfa Hives Drug Allergy Active Baclofen affected nervous syt Drug Allergy Ac tive promethazine Promethazine HCl([facility] Code:[address]-02) out of body experience Drug Allergy Active Readi-Cat Hives Drug Allergy Active iodine nerves, tight muscles Drug Allergy A ctive tizanidine Tizanidine HCl([facility] Code:[address]-76) Hives Drug All ergy Active droperidol Droperidol([facility] Code:[address]-01) out of body Drug Allerg y Active Latex (for allergy use only) difficulty Drug Allergy Active pregabalin Lyrica shakes, everything is black Drug Allergy Active azithromycin Azithromycin([facility] Code:[address]-12) hives Drug All ergy Active phenothiazines nervous system Drug Allergy Acti ve lorazepam Ativan([facility] Code:[address]-95) hallucinations Drug Allergy Active Oxycodone vomiting,hives Drug Allergy Active nitrofurantoin, macrocrystals / nitrofurantoin, monohy drate Macrobid([facility] Code:[address]-58) Hives, blurred vision Drug Allergy Active meperidine Meperidine HCl([facility] Code:[address]-63) out of dena dy experience Drug Allergy Active tramadol Tramadol([facility] Code:[address]-97) shakes Drug Allergy Active lidoderm (licocanine) heart races Drug Allergy Active gabapentin Gabapentin([facility] Code:[address]-79) nervous syste m,shakey Drug Allergy Active aspirin Aspirin([facility] Code:[address]-47) Hives Drug Allergy Active fentanyl Fentanyl([facility] Code:[address]-07) nervous Drug Allergy Active albuterol Albuterol Sulfate([facility] Code:[address]-09) cough Drug Allergy Active quinolones- cipro,tequin Hives Drug Allergy Active ENCOUNTERS from 1960 to 2020-04-10 Encounter Location Date Provider Diagnosis [facility] [address] [place] [address] Mar, Tutu Sanchez IMMUNIZATIONS Vaccine Route Administration Date [...] Education Language: Question Answer Notes Languages spoken: Urdu Episcopal: Question Answer Notes Episcopal 15 Presbyterian [...] jerome wafers flating flanges ICD: v55.3 ( 32657 2 1/2 change as needed (Tatianna) Active [...] hrs prn for 30 Days Active Pen [place] 08/27" as directed subcutaneously Daily dx: E11.65 fo r 90 day(s) Jul, Active May [place] Bags (54538) ICD:v55.3 change as needed (Payton cao) for [...] week for 90 day(s) Mar, Active Nystatin 474489 UNIT/GM APPLY TO AFFECTED AREA(S) AR OUND [...] Information RESULTS No Results REASON FOR VISIT headache, bump in nose MEDICAL (GENERAL) HISTORY Type Description Date Medical [...] PLAN OF TREATMENT Next Appt Details Provider Name:Ovi Antony, 2020-04-12 10:00:00 AM, [address] [place] [address], [place], [address], Provider Name:Peyton Avila, 10:00:00 AM, [address] [place], [address], Provider Name:Tutu Sanchez, 2020-04-15 9 01:30:00 PM, [address] [place], [address], Provider Name:Deann El, 2020-06-26 10 :00:00 AM, [address] [place], [address], Insurance Providers Payer Name Payer Address Payer Phone Insured Name Patient Relati onship to Insured Coverage Start Date Coverage End Date [facility] [address] [facility] [id number] RUBA GRAFF,GLENN COOPER self
--- OUTSIDE RECORDS SUMMARY | 2020-05-27 08:56 | CCD ---
Author Author [facility] Organization [facility] Address Unknown Phone Unavailable Care Team Providers Care Senior Cost Estimator Name Role Phone Tutu Sanchez Unavailable PROBLEMS Type Condition ICD9-CM Code [id number] Code Onset Dates Condition S tatus SNOMED Code Notes Problem 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 Active 26 922874 Problem Unspecified asthma J45.909 Active 211833200 Problem Complicated headache syndromes G44.59 Active 2 11548838 Problem Chronic nausea R11.0 Active 649577195 Problem Chronic maxillary sinusitis J32.0 Active 3592 3002 Problem History of abdominal surgery Z98.890 Active 161 223110 Problem Allergic rhinitis, unspecified seasonality, unspecifie d trigger J30.9 Active 17030668 Problem Internal hemorrhoids without mention of complication K64.8 Active 00010921 Problem Viral warts, unspecified B07.9 Active 9692552 3 Problem DM w/o complication type II, uncontrolled E11.65 Active 04386622 Problem Pelvic muscle wasting N81.84 Active 83457898 Problem Mixed hyperlipidemia E78.2 Active 850482142 Problem Anemia, chronic disease D63.8 Active 92942923 6 Problem Breast calcification seen on mammogram R92.1 A ctive 175273545 Problem Esophageal reflux K21.9 Active 371133593 Problem Chronic pain associated with significant psychos ocial dysfunction G89.4 Active 992428326 Problem Low back pain M54.5 Active 696402633 Problem Dysfunction of eustachian tube, bilateral H69.83 Active 35526269 Problem DM w/o complication type II E11.9 Active 3134 58881 Problem Fatty liver K76.0 Active 457464204 Problem Chronic prescription opiate use Z79.899 Active 610949963 Problem Occipital neuralgia M54.81 Active 44067329 Problem Multiple drug allergies Z88.9 Active 24939837 2 Problem longterm (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 Z79.4 Activ e 806774107 Problem Myalgia M79.1 Active 84686403 Problem Granulomatous disorder of the skin and s ubcutaneous tissue, unspecified L92.9 Active 722582492 Problem Type 2 diabetes mellitus with stage 3 chronic kidney disea se E11.22 Active 37133734 Problem Hypomagnesemia E83.42 Active 381318628 Problem Ileostomy status Z93.2 Active 482090442 Problem Chronic kidney disease, stage III (moderate) N18.3 Active 044035025 Problem Complex regional pain syndrome I of left lower limb G90.522 Active 402792763 Problem Spinal cord stimulator status Z96.89 Active 12 8806044 Problem 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 Active 267509791 Problem Encounter for care related to vascular access port Z45.2 Active 753200857 Problem Myalgia, other site M79.18 Active 90671859 Problem Type 2 diabetes mellitus without complications E11 .9 Active 580016901 Problem Constipation, unspecified constipation type K59.00 Active 05335258 Problem Hypoglycemia E16.2 Active 977948641 Problem Left lower quadrant pain R10.32 Active 5091090 02 Problem Pseudogout M11.20 Active 487137878 Problem Flexural eczema L20.82 Active 02695937 Problem Falls frequently R29.6 Active 485721734 Problem Disorders of magnesium metabolism, unspecified E83 .40 Active 00615455 Problem Other chronic pain G89.29 Active 15564778 Problem Port catheter in place Z95.828 Active 040147769 Problem Grief F43.20 Active 907582855 Problem Cervicalgia M54.2 Active 06803104 Problem Rosacea L71.9 Active 137065006 Problem Vaginal atrophy N95.2 Active 727244334 Problem Incisional hernia with obstruction but no gangrene K43.0 Active 162734361 ALLERGIES Allergen (clinical drug ingredient) Drug/Non Drug Allergy do cumented on EMR Reaction Allergy Type Onset Date Status morphine Morphine Sulfate([facility] Code:[address]-75) severe h/a with big dose Drug Allergy Active codeine Codeine Sulfate([facility] Code:[address]-10) out of b vito experience Drug Allergy Active red food dye rash Non Drug Allergy Active Gastrografin([facility] Code:[address]-96) Onl y 1 bottle per test day (can not tolerate any more than 1 bottle) Drug Allergy Active tiagabine Gabitril([facility] Code:[address]-23) nervous Drug Allergy Active ketorolac Ketorolac Tromethamine([facility] Code:[address]-23) vomitin g Drug Allergy Active Vicodin Confusion Drug Allergy Active Penicillin (For Allergies Use Only) Hives Drug Allerg y Active sulfa Hives Drug Allergy Active Baclofen affected nervous syt Drug Allergy Ac tive promethazine Promethazine HCl([facility] Code:[address]-12) out of body experience Drug Allergy Active Readi-Cat Hives Drug Allergy Active iodine nerves, tight muscles Drug Allergy A ctive tizanidine Tizanidine HCl([facility] Code:[address]-83) Hives Drug All ergy Active droperidol Droperidol([facility] Code:[address]-00) out of body Drug Allerg y Active Latex (for allergy use only) difficulty Drug Allergy Active pregabalin Lyrica shakes, everything is black Drug Allergy Active azithromycin Azithromycin([facility] Code:[address]-49) hives Drug All ergy Active phenothiazines nervous system Drug Allergy Acti ve lorazepam Ativan([facility] Code:[address]-68) hallucinations Drug Allergy Active Oxycodone vomiting,hives Drug Allergy Active nitrofurantoin, macrocrystals / nitrofurantoin, monohy drate Macrobid([facility] Code:[address]-90) Hives, blurred vision Drug Allergy Active meperidine Meperidine HCl([facility] Code:[address]-71) out of dena dy experience Drug Allergy Active tramadol Tramadol([facility] Code:[address]-35) shakes Drug Allergy Active lidoderm (licocanine) heart races Drug Allergy Active gabapentin Gabapentin([facility] Code:[address]-97) nervous syste m,shakey Drug Allergy Active aspirin Aspirin([facility] Code:[address]-22) Hives Drug Allergy Active fentanyl Fentanyl([facility] Code:[address]-94) nervous Drug Allergy Active albuterol Albuterol Sulfate([facility] Code:[address]-35) cough Drug Allergy Active quinolones- cipro,tequin Hives Drug Allergy Active ENCOUNTERS from 1960 to 2020-04-16 Encounter Location Date Provider Diagnosis [facility] [place] [address] Feb, Tutu Sanchez IMMUNIZATIONS Vaccine Route Administration Date [...] School 8th grade Audit Question Answer Notes Interpretation: Alcohol Education Total Score: 0 Language: Question Answer Notes Languages spoken: Sinhala Anglican: Question Answer Notes Anglican 15 Presbyterian Sexual Hx: Question Answer Notes Had sex in the last 12 months (vaginal, oral, or anal)? No Have you ever had an STD? No Drug and Alcohol Question Answer Notes Interpretation: No problems reported Total Score: 0 Alcohol Screening: Question Answer Notes Did you [...] pain and distention for 30 Active Nystatin 905571 UNIT/GM APPLY TO AFFECTED AREA(S) AR OUND [...] week for 90 day(s) Mar, Active Pen [place] /" as directed subcutaneously Daily dx: E11.65 [...] Days Jun, A ctive May Flakita Bags (22159) ICD:v55.3 change as needed (Payton cao) for 30 day(s) Active May have flakita wafers flating flanges ICD: v55.3 ( 10345 2 1/2 change as needed (Tatianna) Active PROCEDURES No Information RESULTS No Results REASON FOR VISIT refill amptriptyline, albuterol HFA MEDICAL (GENERAL) HISTORY Type Description Date Medical [...] ml Orally three times daily for 30 Next Appt Details Provider Name:Peyton Avila, 10:00:00 AM, [facility] [place], [address], Provider Name:Tutu Sanchez, 2020-04-15 9 01:30:00 PM, [address] [place], [address], Provider Name:Deann El, 2020-06-26 10 :00:00 AM, [address] [place], [address], Insurance Providers Payer Name Payer Address Payer Phone Insured Name Patient Relati onship to Insured Coverage Start Date Coverage End Date [facility] [address] [facility] [phone] RUBA GRAFF,GLENN COOPER self
--- OUTSIDE RECORDS SUMMARY | 2020-05-27 08:56 | CCD ---
Author Author [facility] Organization [facility] Address Unknown Phone Unavailable Care Team Providers Care Braille Proofreader Name Role Phone Tutu Sanchez Unavailable PROBLEMS Type Condition ICD9-CM Code WUI90-QS Code Onset Dates Condition S tatus SNOMED Code Notes Problem 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 Active 26 382497 Problem Unspecified asthma J45.909 Active 991242270 Problem Complicated headache syndromes G44.59 Active 2 13241534 Problem Chronic nausea R11.0 Active 604762700 Problem Chronic maxillary sinusitis J32.0 Active 3592 3002 Problem History of abdominal surgery Z98.890 Active 161 114047 Problem Allergic rhinitis, unspecified seasonality, unspecifie d trigger J30.9 Active 03864396 Problem Internal hemorrhoids without mention of complication K64.8 Active 94390506 Problem Viral warts, unspecified B07.9 Active 8946777 3 Problem DM w/o complication type II, uncontrolled E11.65 Active 07820612 Problem Pelvic muscle wasting N81.84 Active 52035008 Problem Mixed hyperlipidemia E78.2 Active 260922392 Problem Anemia, chronic disease D63.8 Active 02024969 6 Problem Breast calcification seen on mammogram R92.1 A ctive 779216593 Problem Esophageal reflux K21.9 Active 078724090 Problem Chronic pain associated with significant psychos ocial dysfunction G89.4 Active 922837927 Problem Low back pain M54.5 Active 975139958 Problem Dysfunction of eustachian tube, bilateral H69.83 Active 96344380 Problem DM w/o complication type II E11.9 Active 3134 19919 Problem Fatty liver K76.0 Active 014288858 Problem Chronic prescription opiate use Z79.899 Active 643766579 Problem Occipital neuralgia M54.81 Active 32229911 Problem Multiple drug allergies Z88.9 Active 25828114 2 Problem senior care (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 Z79.4 Activ e 273430400 Problem Myalgia M79.1 Active 39319025 Problem Granulomatous disorder of the skin and s ubcutaneous tissue, unspecified L92.9 Active 642315568 Problem Type 2 diabetes mellitus with stage 3 chronic kidney disea se E11.22 Active 62345483 Problem Hypomagnesemia E83.42 Active 416709875 Problem Ileostomy status Z93.2 Active 647344421 Problem Chronic kidney disease, stage III (moderate) N18.3 Active 503566720 Problem Complex regional pain syndrome I of left lower limb G90.522 Active 599060969 Problem Spinal cord stimulator status Z96.89 Active 12 7427399 Problem 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 Active 195548984 Problem Encounter for care related to vascular access port Z45.2 Active 493690946 Problem Myalgia, other site M79.18 Active 72510100 Problem Type 2 diabetes mellitus without complications E11 .9 Active 479437023 Problem Constipation, unspecified constipation type K59.00 Active 00812915 Problem Hypoglycemia E16.2 Active 132516477 Problem Left lower quadrant pain R10.32 Active 7214135 02 Problem Pseudogout M11.20 Active 196112317 Problem Flexural eczema L20.82 Active 77659975 Problem Falls frequently R29.6 Active 760000967 Problem Disorders of magnesium metabolism, unspecified E83 .40 Active 16009348 Problem Other chronic pain G89.29 Active 40892828 Problem Port catheter in place Z95.828 Active 289448908 Problem Grief F43.20 Active 737109118 Problem Cervicalgia M54.2 Active 29843746 Problem Rosacea L71.9 Active 727017540 Problem Vaginal atrophy N95.2 Active 921802852 Problem Incisional hernia with obstruction but no gangrene K43.0 Active 056675038 ALLERGIES Allergen (clinical drug ingredient) Drug/Non Drug Allergy do cumented on EMR Reaction Allergy Type Onset Date Status morphine Morphine Sulfate([facility] Code:[address]-77) severe h/a with big dose Drug Allergy Active codeine Codeine Sulfate([facility] Code:[address]-78) out of b vito experience Drug Allergy Active red food dye rash Non Drug Allergy Active Gastrografin([facility] Code:[address]-94) Onl y 1 bottle per test day (can not tolerate any more than 1 bottle) Drug Allergy Active tiagabine Gabitril([facility] Code:[address]-77) nervous Drug Allergy Active ketorolac Ketorolac Tromethamine([facility] Code:[address]-85) vomitin g Drug Allergy Active Vicodin Confusion Drug Allergy Active Penicillin (For Allergies Use Only) Hives Drug Allerg y Active sulfa Hives Drug Allergy Active Baclofen affected nervous syt Drug Allergy Ac tive promethazine Promethazine HCl([facility] Code:[address]-19) out of body experience Drug Allergy Active Readi-Cat Hives Drug Allergy Active iodine nerves, tight muscles Drug Allergy A ctive tizanidine Tizanidine HCl([facility] Code:[address]-43) Hives Drug All ergy Active droperidol Droperidol([facility] Code:[address]-58) out of body Drug Allerg y Active Latex (for allergy use only) difficulty Drug Allergy Active pregabalin Lyrica shakes, everything is black Drug Allergy Active azithromycin Azithromycin([facility] Code:[address]-87) hives Drug All ergy Active phenothiazines nervous system Drug Allergy Acti ve lorazepam Ativan([facility] Code:[address]-45) hallucinations Drug Allergy Active Oxycodone vomiting,hives Drug Allergy Active nitrofurantoin, macrocrystals / nitrofurantoin, monohy drate Macrobid([facility] Code:[address]-20) Hives, blurred vision Drug Allergy Active meperidine Meperidine HCl([facility] Code:[address]-20) out of dena dy experience Drug Allergy Active tramadol Tramadol([facility] Code:[address]-47) shakes Drug Allergy Active lidoderm (licocanine) heart races Drug Allergy Active gabapentin Gabapentin([facility] Code:[address]-09) nervous syste m,shakey Drug Allergy Active aspirin Aspirin([facility] Code:[address]-77) Hives Drug Allergy Active fentanyl Fentanyl([facility] Code:[address]-01) nervous Drug Allergy Active albuterol Albuterol Sulfate([facility] Code:[address]-12) cough Drug Allergy Active quinolones- cipro,tequin Hives Drug Allergy Active ENCOUNTERS from 1960 to 2020-04-13 Encounter Location Date Provider Diagnosis [facility] [address] [place] [address] Mar, Tutu Sanchez IMMUNIZATIONS Vaccine Route Administration [...] Education Language: Question Answer Notes Languages spoken: Kiswahili Temple: Question Answer Notes Temple 15 [employer] Sexual Hx: Question Answer Notes [...] pain and distention for 30 Active Nystatin 038073 UNIT/GM APPLY TO AFFECTED AREA(S) AR OUND [...] week for 90 day(s) Mar, Active Pen [place] 5/16" as directed subcutaneously Daily dx: E11.65 [...] Days Jun, A ctive May Flakita Bags (20748) ICD:v55.3 change as needed (Payton cao) for 30 day(s) Active May have flakita wafers flating flanges ICD: v55.3 ( 88169 2 1/2 change as needed (Tatianna) Active PROCEDURES No Information RESULTS No Results REASON FOR VISIT Lina Mitchell appointment update MEDICAL (GENERAL) HISTORY Type Description Date Medical [...] Appt Details Provider Name:Peyton Avila, 10:00:00 AM, [facility] [place], [address], Provider Name:Tutu Sanchez, 2020-04-15 9 01:30:00 PM, [address] [place], [address], Provider Name:Deann El, 2020-06-26 10 :00:00 AM, [address] [place], [address], Insurance Providers Payer Name Payer Address Payer Phone Insured Name Patient Relati onship to Insured Coverage Start Date Coverage End Date [facility] [address] [place] [id number] GLENN JACOBSON self
--- OUTSIDE RECORDS SUMMARY | 2020-05-27 08:57 | CCD ---
Author Author [facility] Organization [facility] Address Unknown Phone Unavailable Care Team Providers Care Stencil Maker Name Role Phone Tutu Sanchez Unavailable PROBLEMS Type Condition ICD9-CM Code [id number] Code Onset Dates Condition S tatus SNOMED Code Notes Problem 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 Active 26 234218 Problem Unspecified asthma J45.909 Active 615754979 Problem Complicated headache syndromes G44.59 Active 2 82745615 Problem Chronic nausea R11.0 Active 033072351 Problem Chronic maxillary sinusitis J32.0 Active 3592 3002 Problem History of abdominal surgery Z98.890 Active 161 893131 Problem Allergic rhinitis, unspecified seasonality, unspecifie d trigger J30.9 Active 27721205 Problem Internal hemorrhoids without mention of complication K64.8 Active 11409819 Problem Viral warts, unspecified B07.9 Active 5621973 3 Problem DM w/o complication type II, uncontrolled E11.65 Active 67314822 Problem Pelvic muscle wasting N81.84 Active 37049878 Problem Mixed hyperlipidemia E78.2 Active 825706676 Problem Anemia, chronic disease D63.8 Active 15196443 6 Problem Breast calcification seen on mammogram R92.1 A ctive 624752455 Problem Esophageal reflux K21.9 Active 163185127 Problem Chronic pain associated with significant psychos ocial dysfunction G89.4 Active 974315577 Problem Low back pain M54.5 Active 531235745 Problem Dysfunction of eustachian tube, bilateral H69.83 Active 29713184 Problem DM w/o complication type II E11.9 Active 3134 71015 Problem Fatty liver K76.0 Active 135081604 Problem Chronic prescription opiate use Z79.899 Active 443294786 Problem Occipital neuralgia M54.81 Active 22640562 Problem Multiple drug allergies Z88.9 Active 31941303 2 Problem custodial (current) use of insulin Z79.4 Activ e 332762941 Problem Myalgia M79.1 Active 07236157 Problem Granulomatous disorder of the skin and s ubcutaneous tissue, unspecified L92.9 Active 473331235 Problem Type 2 diabetes mellitus with stage 3 chronic kidney disea se E11.22 Active 81320989 Problem Hypomagnesemia E83.42 Active 136258286 Problem Ileostomy status Z93.2 Active 963663227 Problem Chronic kidney disease, stage III (moderate) N18.3 Active 375263783 Problem Complex regional pain syndrome I of left lower limb G90.522 Active 196446450 Problem Spinal cord stimulator status Z96.89 Active 12 3782208 Problem 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 Active 661424236 Problem Encounter for care related to vascular access port Z45.2 Active 981023949 Problem Myalgia, other site M79.18 Active 17383922 Problem Type 2 diabetes mellitus without complications E11 .9 Active 340128708 Problem Constipation, unspecified constipation type K59.00 Active 67898824 Problem Hypoglycemia E16.2 Active 151409178 Problem Left lower quadrant pain R10.32 Active 3437584 02 Problem Pseudogout M11.20 Active 205971288 Problem Flexural eczema L20.82 Active 49731028 Problem Falls frequently R29.6 Active 450609913 Problem Disorders of magnesium metabolism, unspecified E83 .40 Active 66138576 Problem Other chronic pain G89.29 Active 84380840 Problem Port catheter in place Z95.828 Active 629921607 Problem Grief F43.20 Active 949055850 Problem Cervicalgia M54.2 Active 74882551 Problem Rosacea L71.9 Active 640620245 Problem Vaginal atrophy N95.2 Active 126423254 Problem Incisional hernia with obstruction but no gangrene K43.0 Active 466653954 ALLERGIES Allergen (clinical drug ingredient) Drug/Non Drug Allergy do cumented on EMR Reaction Allergy Type Onset Date Status morphine Morphine Sulfate(ND Code:[address]-41) severe h/a with big dose Drug Allergy Active codeine Codeine Sulfate(NDC Code:[address]-30) out of b vito experience Drug Allergy Active red food dye rash Non Drug Allergy Active Gastrografin(NDC Code:[address]-58) Onl y 1 bottle per test day (can not tolerate any more than 1 bottle) Drug Allergy Active tiagabine Gabitril(NDC Code:[address]-10) nervous Drug Allergy Active ketorolac Ketorolac Tromethamine(NDC Code:[address]-13) vomitin g Drug Allergy Active Vicodin Confusion Drug Allergy Active Penicillin (For Allergies Use Only) Hives Drug Allerg y Active sulfa Hives Drug Allergy Active Baclofen affected nervous syt Drug Allergy Ac tive promethazine Promethazine HCl(NDC Code:[address]-65) out of body experience Drug Allergy Active Readi-Cat Hives Drug Allergy Active iodine nerves, tight muscles Drug Allergy A ctive tizanidine Tizanidine HCl(NDC Code:[address]-24) Hives Drug All ergy Active droperidol Droperidol(NDC Code:[address]-40) out of body Drug Allerg y Active Latex (for allergy use only) difficulty Drug Allergy Active pregabalin Lyrica shakes, everything is black Drug Allergy Active azithromycin Azithromycin(NDC Code:[address]-56) hives Drug All ergy Active phenothiazines nervous system Drug Allergy Acti ve lorazepam Ativan(NDC Code:[address]-40) hallucinations Drug Allergy Active Oxycodone vomiting,hives Drug Allergy Active nitrofurantoin, macrocrystals / nitrofurantoin, monohy drate Macrobid(NDC Code:[address]-07) Hives, blurred vision Drug Allergy Active meperidine Meperidine HCl(NDC Code:[address]-65) out of dena dy experience Drug Allergy Active tramadol Tramadol(NDC Code:[address]-69) shakes Drug Allergy Active lidoderm (licocanine) heart races Drug Allergy Active gabapentin Gabapentin(NDC Code:[address]-93) nervous syste m,shakey Drug Allergy Active aspirin Aspirin(NDC Code:[address]-55) Hives Drug Allergy Active fentanyl Fentanyl([facility] Code:[address]-53) nervous Drug Allergy Active albuterol Albuterol Sulfate([facility] Code:[address]-30) cough Drug Allergy Active quinolones- cipro,tequin Hives Drug Allergy Active ENCOUNTERS from 1960 to 2020-03-31 Encounter Location Date Provider Diagnosis [facility] [address] [place] [phone] Mar, Tutu Sanchez IMMUNIZATIONS Vaccine Route Administration [...] Education Language: Question Answer Notes Languages spoken: Hebrew Yazidi: Question Answer Notes Yazidi 15 [facility] Sexual Hx: Question Answer Notes [...] Da te End Date Status May have flakita wafers flating flanges ICD: v55.3 ( 70787 2 1/2 change as needed (Tatianna) Active Lactulose 20 GM/30ML 15 ml Orally three times daily for 30 Active Test Strips - - Dx: E11.65 four times daily as needed for 30 D ays Jun, Active Lancets Misc. - One touch delica 33G lancets Dx: E11.65 four times daily as needed for 30 Days Jun, Active Ipratropium-Albuterol 0.5-2.5 (3) MG/3ML 3 ml Inhalati on every 6 hrs PRN for 30 days Dec, Active Glucometer testing 4 times a day and as needed Dx: f or 30 days Jun, Active Baby Wipes 1 as directed topically prn dx:569.62 for 7 day(s) Active Metoclopramide HCl 10 MG 1 tablet before meals and be dtime Orally three times daily before meals for 30 Days Jun, A ctive Victoza 18 MG/3ML 0.6mg daily x 1 week, theni ncreast to 1.2mg daily Subcutaneous Daily for 28 day(s) Mar, Active Simethicone 80 MG 2 tablets after meals and at bedtime as needed Orally three times a day as needed for abdominal pain and distention for 30 Active Albuterol Sulfate HFA 108 (90 Base) MCG/ACT 2 puffs as needed Inhalation every 4 hrs prn for 30 Days Active Ciclopirox 8 % 1 application to the l 5th f ingernail Externally Once a day, clean off with an alcohol prep pad once a week for 90 day(s) Mar, Active Pedialyte bottle 330 ml Orally three times daily for 30 days Active Hospital bed use daily as directed dx: K9 1.2, G89.4, G90.522, N81.84 for 99 days May, Active Pen [employer] 08/27" as directed subcutaneously Daily dx: E11.65 fo r 90 day(s) Jul, Active Zofran 4 MG/2ML 4 mg Injection BID at least 8h apart for 30 days Nov, Active Bentyl 10 MG 1 capsule Orally Four times a day prn abdominal cramping for 30 Days Active Nystatin 871303 UNIT/GM APPLY TO AFFECTED AREA(S) AR OUND STOMA 2 TIMES A DAY DIRECTED UNTIL HEALED for 14 Act nba Sodium Chloride 0.9 % one application inside the R nostril every 2 hrs prn for 7 day(s) Mar, Active Nebulizer Compressor 1 inh dx: J45.909 every 4 hours as needed f or 90 day(s) August, Active Doxycycline Hyclate 100 MG 1 tablet Orally bid for 7 days Mar, Active Syringe 2-3 ML 3 ML dx: r11.0 intramuscularly tid prn for 30 Day s Feb, Active Dicyclomine HCl 10 MG 1 capsule Orally four times daily for 30 Days Active Amitriptyline HCl 50 MG as directed Orally 1 tab in am and 3 tabs at bedtime for 30 Days Active Triamcinolone Acetonide 0.1 % apply a thin layer to re d areas on fingers Externally Twice a day for 30 Days Active August Flakita Bags (67648) ICD:v55.3 change as needed ([place] cao) for 30 day(s) Active Nebulizer/Tubing/Mouthpiece - as directed dx: J45.909 every 4 hours as needed for 90 day(s) August, Active Estradiol 0.1 MG/GM 1 gram Vaginal daily Oct, Active Alcohol Prep Pad 70 % as directed E11.9 test blood sugar QID PRN for 30 Days Jun, Active Ammonium Lactate 12 % 1 application Externally Twice a day t o feet for 30 Days Jun, Active Levemir Flex Touch 100 UNIT/ML 35 units Subcutaneous in the morning for 30 Days Jul, Active Sucralfate 1 GM 1 tab Orally Twice a day for 30 days Active PROCEDURES No Information RESULTS No Results REASON FOR VISIT Dr Sarah MEDICAL (GENERAL) HISTORY Type Description Date Medical [...] PLAN OF TREATMENT Next Appt Details Provider Name:Peyton Russo Austin, 08:00:00 AM, [address] [place] [address], [phone], Provider Name:Tutu Sanchez, 01-2 9 01:30:00 PM, [address] [place], [phone], Provider Name:Deann El, 2020-06-26 10 :00:00 AM, [address] [place], [phone], Insurance Providers Payer Name Payer Address Payer Phone Insured Name Patient Relati onship to Insured Coverage Start Date Coverage End Date [facility] [address] [facility] [id number] RUBA GRAFF,GLENN medina
[2020-05-27] MEDS ORDERED: LIDOCAINE 1% SDV 5ML VIAL DILUENT ONE (09:00)
[2020-05-27] MEDS ORDERED: cefTRIAXone SOD 1GM VIAL (J0696 PER 250MG) IM ONE (09:00)
--- OUTSIDE RECORDS SUMMARY | 2020-05-27 09:00 | CCD ---
Author Author [facility] Organization [facility] Address Unknown Phone Unavailable Care Team Providers Care Online Journalist Name Role Phone Komal Campuzano JR, MD Unavailable Unavailable Komal Campuzano JR, MD Unavailable Unavailable Komal Campuzano JR, MD Unavailable Unavailable Komal Campuzano JR, MD Unavailable Unavailable Komal Campuzano JR, MD Unavailable Unavailable Komal Campuzano JR, MD Unavailable Unavailable Komal Campuzano JR, MD Unavailable Unavailable Komal Campuzano JR, MD Unavailable Unavailable Komal Campuzano JR, MD Unavailable Unavailable Komal Campuzano JR, MD Unavailable Unavailable Komal Campuzano JR, MD Unavailable Unavailable Komal Campuzano JR, MD Unavailable Unavailable Komal Campuzano JR, MD Unavailable Unavailable Komal Campuzano JR, MD Unavailable Unavailable Komal Campuzano JR, MD Unavailable Unavailable Komal Campuzano JR, MD Unavailable Unavailable Komal Campuzano JR, MD Unavailable Unavailable Komal Campuzano JR, MD Unavailable Unavailable Komal Campuzano JR, MD Unavailable Unavailable Komal Campuzano JR, MD Unavailable Unavailable Komal Campuzano JR, MD Unavailable Unavailable Komal Campuzano JR, MD Unavailable Unavailable Komal Campuzano JR, MD Unavailable Unavailable Komal Campuzano JR, MD Unavailable Unavailable Komal Campuazno JR, MD Unavailable Unavailable Komal Campuzano JR, MD Unavailable Unavailable Komal Campuzano JR, MD Unavailable Unavailable Komal Campuzano JR, MD Unavailable Unavailable Komal Campuzano JR, MD Unavailable Unavailable Komal Campuzano JR, MD Unavailable Unavailable Komal Campuzano JR, MD Unavailable Unavailable Komal Campuzano JR, MD Unavailable Unavailable Komal Campuzano JR, MD Unavailable Unavailable Komal Campuzano JR, MD Unavailable Unavailable Komal Campuzano JR, MD Unavailable Unavailable Komal Campuzano JR, MD Unavailable Unavailable Komal Campuzano JR, MD Unavailable Unavailable Komal Campuzano JR, MD Unavailable Unavailable Komal Campuzano JR, MD Unavailable Unavailable Komal Campuzano JR, MD Unavailable Unavailable Komal Campuzano JR, MD Unavailable Unavailable Komal Campuznao JR, MD Unavailable Unavailable Komal Campuzano JR, MD Unavailable Unavailable Komal Campuzano JR, MD Unavailable Unavailable Komal Campuzano JR, MD Unavailable Unavailable Komal Campuzano JR, MD Unavailable Unavailable Komal Campuzano JR, MD Unavailable Unavailable Komal Campuzano JR, MD Unavailable Unavailable Komal Campuzano JR, MD Unavailable Unavailable Komal Campuzano JR, MD Unavailable Unavailable Komal Campuzano JR, MD Unavailable Unavailable Komal Campuzano JR, MD Unavailable Unavailable Komal Campuzano JR, MD Unavailable Unavailable Komal Campuzano JR, MD Unavailable Unavailable Komal Campuzano JR, MD Unavailable Unavailable Komal Campuzano JR, MD Unavailable Unavailable Kourtney REESE DPM Unavailable Unavailable MAJAK, R CRISTOPHER DPM Unavailable Unavailable MAJAK, R CRISTOPHER DPM Unavailable Unavailable MAJAK, R CRISTOPHER DPM Unavailable Unavailable MAJAK, R CRISTOPHER DPM Unavailable Unavailable MAJAK, R CRISTOPHER DPM Unavailable Unavailable MAJAK, R CRISTOPHER DPM Unavailable Unavailable MAJAK, R CRISTOPHER DPM Unavailable Unavailable MAJAK, R CRISTOPHER DPM Unavailable Unavailable MAJAK, R CRISTOPHER DPM Unavailable Unavailable MAJAK, R CRISTOPHER DPM Unavailable Unavailable MAJAK, R CRISTOPHER DPM Unavailable Unavailable MAJAK, R CRISTOPHER DPM Unavailable Unavailable MAJAK, R CRISTOPHER DPM Unavailable Unavailable MAJAK, R CRISTOPHER DPM Unavailable Unavailable MAJAK, R CRISTOPHER DPM Unavailable Unavailable MAJAK, R CRISTOPHER DPM Unavailable Unavailable MAJAK, R CRISTOPHER DPM Unavailable Unavailable MAJAK, R CRISTOPHER DPM Unavailable Unavailable MAJAK, R CRISTOPHER DPM Unavailable Unavailable MAJAK, R CRISTOPHER DPM Unavailable Unavailable MAJAK, R CRISTOPHER DPM Unavailable Unavailable MAJAK, R CRISTOPHER DPM Unavailable Unavailable MAJAK, R CRISTOPHER DPM Unavailable Unavailable MAJAK, R CRISTOPHER DPM Unavailable Unavailable MAJAK, R CRISTOPHER DPM Unavailable Unavailable MAJAK, R CRISTOPHER DPM Unavailable Unavailable MAJAK, R CRISTOPHER DPM Unavailable Unavailable MAJAK, R CRISTOPHER DPM Unavailable Unavailable MAJAK, R CRISTOPHER DPM Unavailable Unavailable Shabnam, Tawnya Toribio Unavailable Unavailable Shabnam, Tawnya Toribio Unavailable Unavailable Shabnam, Tawnya Toribio Unavailable Unavailable Shabnam, Tawnya Toribio Unavailable Unavailable Preston, Tawnya Toribio Unavailable Unavailable Shabnam, Tawnya Toribio Unavailable Unavailable Preston, Tawnya Toribio Unavailable Unavailable Preston, Tawnya Toribio Unavailable Unavailable MOFFA, VICKI HURD MD Unavailable Unavailable MOFFA, VICKI HURD MD Unavailable Unavailable MOFFA, VICKI HURD MD Unavailable Unavailable MOFFA, VICKI HURD MD Unavailable Unavailable MOFFA, VICKI HURD MD Unavailable Unavailable MOFFA, VICKI HURD MD Unavailable Unavailable MOFFA, VICKI HURD MD Unavailable Unavailable MOFFA, VICKI HURD MD Unavailable Unavailable MOFFA, VICKI HURD MD Unavailable Unavailable MOFFA, VICKI HURD MD Unavailable Unavailable MOFFA, VICKI HURD MD Unavailable Unavailable MOFFA, VICKI HURD MD Unavailable Unavailable MOFFA, VICKI HURD MD Unavailable Unavailable MOFFA, VICKI HURD MD Unavailable Unavailable MOFFA, VICKI HURD MD Unavailable Unavailable MOFFA, VICKI HURD MD Unavailable Unavailable MOFFA, VICKI HURD MD Unavailable Unavailable MOFFA, VICKI HURD MD Unavailable Unavailable MOFFA, VICKI HURD MD Unavailable Unavailable MOFFA, VICKI HURD MD Unavailable Unavailable MOFFA, VICKI HURD MD Unavailable Unavailable MOFFA, VICKI HURD MD Unavailable Unavailable MOFFA, VICKI HURD MD Unavailable Unavailable MOFFA, VICKI HURD MD Unavailable Unavailable MOFFA, VICKI HURD MD Unavailable Unavailable MOFFA, VICKI HURD MD Unavailable Unavailable MOFFA, VICKI HURD MD Unavailable Unavailable MOFFA, VICKI HURD MD Unavailable Unavailable MOFFA, VICKI HURD MD Unavailable Unavailable MOFFA, VICKI HURD MD Unavailable Unavailable MOFFA, VICKI HURD MD Unavailable Unavailable MOFFA, VICKI HURD MD Unavailable Unavailable MOFFA, VICKI HURD MD Unavailable Unavailable MOFFA, VICKI HURD MD Unavailable Unavailable MOFFA, VICKI HURD MD Unavailable Unavailable MOFFA, VICKI HURD MD Unavailable Unavailable MOFFA, VICKI HURD MD Unavailable Unavailable MOFFA, VICKI HURD MD Unavailable Unavailable MOFFA, VICKI HURD MD Unavailable Unavailable MOFFA, VICKI HURD MD Unavailable Unavailable MOFFA, VICKI HURD MD Unavailable Unavailable MOFFA, VICKI HURD MD Unavailable Unavailable MOFFA, VICKI HURD MD Unavailable Unavailable MOFFA, VICKI HURD MD Unavailable Unavailable MOFFA, VICKI HURD MD Unavailable Unavailable MOFFA, VICKI HURD MD Unavailable Unavailable MOFFA, VICKI HURD MD Unavailable Unavailable MOFFA, VICKI HURD MD Unavailable Unavailable MOFFA, VICKI HURD MD Unavailable Unavailable MOFFA, VICKI HURD MD Unavailable Unavailable MOFFA, VICKI HURD MD Unavailable Unavailable MOFFA, VICKI HURD MD Unavailable Unavailable MOFFA, VICKI HURD MD Unavailable Unavailable MOFFA, VIKCI HURD MD Unavailable Unavailable MOFFA, VICKI HURD MD Unavailable Unavailable MOFFA, VICKI HURD MD Unavailable Unavailable MOFFA, VICKI HURD MD Unavailable Unavailable MOFFA, VICKI HURD MD Unavailable Unavailable MOFFA, VICKI HURD MD Unavailable Unavailable MOFFA, VICKI HURD MD Unavailable Unavailable MOFFA, VICKI HURD MD Unavailable Unavailable MOFFA, VICKI HURD MD Unavailable Unavailable MOFFA, VICKI HURD MD Unavailable Unavailable MOFFA, VICKI HURD MD Unavailable Unavailable MOFFA, VICKI HURD MD Unavailable Unavailable MOFFA, VICKI HURD MD Unavailable Unavailable MOFFA, VICKI HURD MD Unavailable Unavailable MOFFA, VICKI HURD MD Unavailable Unavailable MOFFA, VIKCI HURD MD Unavailable Unavailable MOFFA, VICKI HURD MD Unavailable Unavailable MOFFA, VICKI HURD MD Unavailable Unavailable MOFFA, VICKI HURD MD Unavailable Unavailable Keven Sanchez MD Unavailable Unavailable Keven Sanchez MD Unavailable Unavailable Keven Sanchez MD Unavailable Unavailable Keven Sanchez MD Unavailable Unavailable Keven Sanchez MD Unavailable Unavailable Keven Sanchez MD Unavailable Unavailable Keven Sanchez MD Unavailable Unavailable Keven Sanchez MD Unavailable Unavailable Keven Sanchez MD Unavailable Unavailable Keven Sanchez MD Unavailable Unavailable Keven Sanchez MD Unavailable Unavailable Keven Sanchez MD Unavailable Unavailable Keven Sanchez MD Unavailable Unavailable Keven Sanchez MD Unavailable Unavailable Keven Sanchez MD Unavailable Unavailable Keven Sanchez MD Unavailable Unavailable Keven Sanchez MD Unavailable Unavailable Keven Sanchez MD Unavailable Unavailable Keven Sanchez MD Unavailable Unavailable Keven Sanchez MD Unavailable Unavailable Keven Sanchez MD Unavailable Unavailable Keven Sanchez MD Unavailable Unavailable Keven Sanchez MD Unavailable Unavailable Keven Sanchez MD Unavailable Unavailable Keven Sanchez MD Unavailable Unavailable Keven Sanchez MD Unavailable Unavailable Keven Sanchez MD Unavailable Unavailable Keven Sanchez MD Unavailable Unavailable Keven Sanchez MD Unavailable Unavailable Keven Sanchez MD Unavailable Unavailable Keven Sanchez MD Unavailable Unavailable Keven Sanchez MD Unavailable Unavailable Keven Sanchez MD Unavailable Unavailable Keven Sanchez MD Unavailable Unavailable Keven Sanchez MD Unavailable Unavailable Keven Sanchez MD Unavailable Unavailable Keven Sanchez MD Unavailable Unavailable Keven Sanchez MD Unavailable Unavailable Keven Sanchez MD Unavailable Unavailable Keven Sanchez MD Unavailable Unavailable Keven Sanchez MD Unavailable Unavailable Keven Sanchez MD Unavailable Unavailable Keven Sanchez MD Unavailable Unavailable Keven Sanchez MD Unavailable Unavailable Keven Sanchez MD Unavailable Unavailable Keven Sanchez MD Unavailable Unavailable Keven Sanchez MD Unavailable Unavailable Keven Sanchez MD Unavailable Unavailable Keven Sanchez MD Unavailable Unavailable Keven Sanchez MD Unavailable Unavailable Keven Sanchez MD Unavailable Unavailable Keven Sacnhez MD Unavailable Unavailable Keven Sanchez MD Unavailable Unavailable Keven Sanchez MD Unavailable Unavailable Agustín SARAH DO Unavailable [phone] Agustín SARAH DO Unavailable [phone] Agustín SARAH DO Unavailable [phone] GLORIA, A. MAR DO Unavailable [phone] GLORIAAgustínEW DO Unavailable [phone] GLORIA, Ralf. MAR DO Unavailable [phone] GLORIA, Ralf. MAR DO Unavailable [phone] GLORIA, Ralf. MAR DO Unavailable [phone] GLORIA, Ralf. MAR DO Unavailable [phone] GLORIA, Ralf. MAR DO Unavailable [phone] GLORIA, Ralf. MAR DO Unavailable [phone] GLORIA, Ralf. MAR DO Unavailable [phone] GLORIA, Ralf. MAR DO Unavailable [phone] GLORIA, Ralf. MAR DO Unavailable [phone] GLORIA, Ralf. MAR DO Unavailable [phone] GLORIA, Agustín MAR DO Unavailable [phone] GLORIA, Ralf. MAR DO Unavailable [phone] GLORIA, Agustín CARTEREW DO Unavailable [phone] GLORIAAgustínEW DO Unavailable [phone] GLORIARalf. MAR DO Unavailable [phone] GLORIAAgustínEW DO Unavailable [phone] Re-disclosure Warning The records that you are about to access may contain information from federally-assisted alcohol or drug abuse programs. If such information is present, then the following federally mandated warning applies: This information has been disclosed to you from records protected by federal confidentiality rules (42 CFR part 2). The federal rules prohibit you from making any further disclosure of this information unless further disclosure is expressly permitted by the written consent of the person to whom it pertains or as otherwise permitted by 42 CFR part 2. A general authorization for the release of medical or other information is NOT sufficient for this purpose. The Federal rules restrict any use of the information to criminally investigate or prosecute any alcohol or drug abuse patient.The records that you are about to access may contain highly sensitive health information, the redisclosure of which is protected by Article 27-F of the [facility] Public Health law. If you continue you may have access to information: Regarding HIV / AIDS; Provided by facilities licensed or operated by the [facility] Office of Mental Health; or Provided by the [facility] Office for People With Developmental Disabilities. If such information is present, then the following [facility] mandated warning applies: This information has been disclosed to you from confidential records which are protected by state law. State law prohibits you from making any further disclosure of this information without the specific written consent of the person to whom it pertains, or as otherwise permitted by law. Any unauthorized further disclosure in violation of state law may result in a fine or longterm sentence or both. A general authorization for the release of medical or other information is NOT sufficient authorization for further disc losure. Allergies and Adverse Reactions Type Description Substance Reaction Status Data Source(s ) Drug intolerance Lyrica Pregabalin Active JUAN DANIEL (Jhony Lowery MD [facility]) Allergy to substance Active Red Dye Active GREE NWAY (Jhony Lowery MD [facility]) Drug allergy Meperidine and Related Meperidine and Related Active JUAN DANIEL (Jhony Lowery MD [facility]) Drug intolerance Gabitril tiaGABine HCl Active GREEN WAY (Jhony Lowery MD [facility]) Drug intolerance Albuterol Inhalation Inhaler Albuterol A ctive JUAN DANIEL (Jhony Lowery MD [facility]) Drug allergy Duragesic fentaNYL Active JUAN DANIEL (Champ Lowery MD [facility]) Drug intolerance midazolam hydrochloride Midazolam HCl Act nba JUAN DANIEL (Jhony Lowery MD [facility]) Drug intolerance promethazine hydrochloride Promethazine HCl Active JUAN DANIEL (Jhony Lowery MD [facility]) Drug intolerance aspirin Aspirin Active JUAN DANIEL (Jhony Lowery MD [facility]) Drug allergy baclofen Baclofen Active JUAN DANIEL (Champ Lowery MD [facility]) Drug allergy Codeine Oral Capsule Codeine Active GR EENWAY (Jhony Lowery MD [facility]) Drug allergy Hydrocodone Oral Capsule Hydrocodone Active JUAN DANIEL (Jhony Lowery MD [facility]) Drug allergy Duramorph Morphine Sulfate Active GREENW AY (Jhony Lowery MD [facility]) Drug allergy Propoxyphene Propoxyphene Active JUAN DANIEL (Jhony Lowery MD [facility]) Drug intolerance droperidol Droperidol Active JUAN DANIEL (Jhony Lowery MD [facility]) Drug intolerance Lorazepam 0.25 MG Oral Tablet Lorazepam Active JUAN DANIEL (Jhony Lowery MD [facility]) Drug intolerance Iodine Tincture External Iodine Tincture Active JUAN DANIEL (Jhony Lowery MD [facility]) Drug intolerance Lidoderm Lidocaine Active JUAN DANIEL (Jhony Lowery MD [facility]) Drug intolerance Endy-24 Theophylline ER Active GRE ENWAY (Jhony Lowery MD [facility]) Allergy to substance Active Grape Active GREE NWAY (Jhony Lowery MD [facility]) Allergy to substance Active Latex Active GREE NWAY (Jhony Lowery MD [facility]) Allergy to substance Active Strawberries Active GR EENWAY (Jhony Lowery MD [facility]) Allergy to substance Active Tomatoes Active GREE NWAY (Jhony Lowery MD [facility]) Drug allergy Tequin Ophthalmic Solution Tequin Active JUAN DANIEL (Jhony Lowery MD [facility]) Drug allergy Ipratropium [place] 18 MCG/ACT Inhalatio n Aerosol Solution Ipratropium [place] Active JUAN DANIEL (Jhony Lowery MD [facility]) Drug allergy Mesoridazine Oral Tablet Mesoridazine Active JUAN DANIEL (Jhony Lowery MD [facility]) Drug allergy chlorpromazine hydrochloride chlorproMAZINE HCl Active JUAN DANIEL (Jhony Lowery MD [facility]) Drug allergy trifluoperazine hydrochloride Trifluoperazine HCl Active JUAN DANIEL (Jhony Lowery MD [facility]) Drug allergy Azithromycin Powder Azithromycin Active G REENWAY (Jhony Lowery MD [facility]) Drug allergy Neurontin Gabapentin Active JUAN DANIEL (Champ Lowery MD [facility]) Drug allergy Tramadol Oral Tablet Tramadol Active GR EENWAY (Jhony Lowery MD [facility]) Allergy to substance Active Adhesive Tape Active G REENWAY (Jhony Lowery MD [facility]) Drug allergy Ciprofloxacin Oral Tablet Ciprofloxacin Activ e JUAN DANIEL (Jhony Lowery MD [facility]) Drug allergy probenecid Probenecid Active JUAN DANIEL (Champ Lowery MD [facility]) Drug allergy Endocet oxyCODONE-Acetaminophen Active JUAN DANIEL (Jhony Lowery MD [facility]) Drug allergy fluphenazine hydrochloride fluPHENAZine HCl A ctive JUAN DANIEL (Jhony Lowery MD [facility]) Drug allergy Compazine Prochlorperazine Active GREENW AY (Jhony Lowery MD [facility]) Drug allergy Penicillins Penicillins Active JUAN DANIEL ( Jhony Lowery MD [facility]) Drug allergy Sulfa Antibiotics Sulfa Antibiotics Active JUAN DANIEL (Jhony Lowery MD [facility]) Allergy to substance Active Contrast IV Dye Active JUAN DANIEL (Jhony Lowery MD [facility]) Baclofen Baclofen Baclofen 5 MG Oral Tablet affected nervous syt Active eCW1 ([facility]) red food dye red food dye red food dye rash Active eCW1 ([facility]) lidoderm (licocanine) lidoderm (licocanine) lidoderm (licocanine) h eart races Active eCW1 ([facility]) sulfa sulfa sulfa Hives Active eCW1 ([facility]) iodine iodine iodine nerves, tight muscles Active eC W1 ([facility]) phenothiazines phenothiazines phenothiazines nervous system Active eCW1 ([facility]) quinolones- cipro,tequin quinolones- cipro,tequin quinolones- ci pro,tequin Hives Active eCW1 ([facility]) Vicodin Vicodin Vicodin Confusion Active eCW1 ([facility]) Readi-Cat Readi-Cat Readi-Cat Hives Active eCW1 ([facility]) Drug allergy Albuterol Sulfate Albuterol cough Active eCW1 ([facility]) Drug allergy Fentanyl Fentanyl nervous Active eCW1 ([facility]) aspirin Aspirin Aspirin Hives Active eCW1 ([facility]) Drug allergy Gabapentin gabapentin nervous system,shakey Active eCW1 ([facility]) Drug allergy Tramadol Tramadol shakes Active eCW1 ([facility]) Drug allergy Oxycodone Drug allergy vomiting,hives Active eCW1 ([facility]) Drug allergy Ativan Lorazepam hallucinations Active eCW1 ([facility]) Drug allergy Promethazine HCl Promethazine out of body experience Ac tive eCW1 ([facility]) ketorolac Ketorolac Tromethamine Ketorolac vomiting Active eC W1 ([facility]) Drug allergy Gabitril tiagabine nervous Active eCW1 ([facility]) Drug allergy Gastrografin Drug allergy Only 1 bottle pe r test day (can not tolerate any more than 1 bottle) Active eCW1 ([facility]) codeine Codeine Sulfate Codeine out of body experience Active eCW1 ([facility]) Drug allergy Morphine Sulfate Morphine severe h/a with big dose Ac tive eCW1 ([facility]) Drug allergy Meperidine HCl Meperidine out of body experience Active eCW1 ([facility]) Drug allergy Azithromycin Azithromycin hives Active eCW1 ([facility]) Drug allergy Droperidol Droperidol out of body Active eCW1 ([facility]) Drug allergy Macrobid nitrofurantoin, macr ocrystals / nitrofurantoin, monohydrate Hives, blurred vision Active eCW1 ([facility]) Baclofen Baclofen Baclofen 5 MG Oral Tablet affected nervous syt Active eCW1 ([facility]) red food dye red food dye red food dye rash Active eCW1 ([facility]) lidoderm (licocanine) lidoderm (licocanine) lidoderm (licocanine) h eart races Active eCW1 ([facility]) sulfa sulfa sulfa Hives Active eCW1 ([facility]) iodine iodine iodine nerves, tight muscles Active eC W1 ([facility]) phenothiazines phenothiazines phenothiazines nervous system Active eCW1 ([facility]) quinolones- cipro,tequin quinolones- cipro,tequin quinolones- ci pro,tequin Hives Active eCW1 ([facility]) Vicodin Vicodin Vicodin Confusion Active eCW1 ([facility]) Readi-Cat Readi-Cat Readi-Cat Hives Active eCW1 ([facility]) Baclofen Baclofen Baclofen 5 MG Oral Tablet affected nervous syt Active eCW1 ([facility]) red food dye red food dye red food dye rash Active eCW1 ([facility]) lidoderm (licocanine) lidoderm (licocanine) lidoderm (licocanine) h eart races Active eCW1 ([facility]) sulfa sulfa sulfa Hives Active eCW1 ([facility]) iodine iodine iodine nerves, tight muscles Active eC W1 ([facility]) phenothiazines phenothiazines phenothiazines nervous system Active eCW1 ([facility]) quinolones- cipro,tequin quinolones- cipro,tequin quinolones- ci pro,tequin Hives Active eCW1 ([facility]) Vicodin Vicodin Vicodin Confusion Active eCW1 ([facility]) Readi-Cat Readi-Cat Readi-Cat Hives Active eCW1 ([facility]) Baclofen Baclofen Baclofen 5 MG Oral Tablet affected nervous syt Active eCW1 ([facility]) lidoderm (licocanine) lidoderm (licocanine) lidoderm (licocanine) h eart races Active eCW1 ([facility]) sulfa sulfa sulfa Hives Active eCW1 ([facility]) iodine iodine iodine nerves, tight muscles Active eC W1 ([facility]) phenothiazines phenothiazines phenothiazines nervous system Active eCW1 ([facility]) quinolones- cipro,tequin quinolones- cipro,tequin quinolones- ci pro,tequin Hives Active eCW1 ([facility]) red food dye red food dye red food dye rash Active eCW1 ([facility]) Vicodin Vicodin Vicodin Confusion Active eCW1 ([facility]) Readi-Cat Readi-Cat Readi-Cat Hives Active eCW1 ([facility]) Family History Family Member Name Family Member Gender Family Member Status Date o f Status Description Data Source(s) Unknown Female Problem MEDENT ([facility]) Encounters Encounter Providers Location Date Indications Data Source(s ) Unknown [id number] [facility] [address] 05/22/2020 12:00:00 AM EST eCW1 ([facility]) [place] [address] [facility] [address] 05/11/2020 12:00:00 AM EST eCW1 ([facility]) [place] [id number] [facility] [address] 05/09/2020 12:00:00 AM EST eCW1 ([facility]) [place] [address] [facility] [address] 05/08/2020 12:00:00 AM EST eCW1 ([facility]) [place] [address] [facility] [address] 05/08/2020 12:00:00 AM EST [facility]CW1 [facility] [place] [address] [facility] [address] 05/03/2020 12:00:00 AM EST eCW1 ([facility]) [place] [address] [facility] [address] 05/03/2020 12:00:00 AM EST eCW1 ([facility]) [place] [address] [facility] [address] 05/02/2020 12:00:00 AM EST eCW1 ([facility]) [place] [address] [facility] [address] 04/28/2020 12:00:00 AM EST eCW1 ([facility]) Outpatient Attender: Silver Carrillo/Pancho/Ivan/Luba yip 04/26/2020 09:30:00 AM EST MEDENT ([facility] Unknown [address] [facility] [address] 04/24/2020 12:00:00 AM EST [facility]CW[facility] [place] [address] [facility] [address] 04/24/2020 12:00:00 AM EST [facility]CW1 [facility]) Unknown [address] [facility] [address] 04/21/2020 12:00:00 AM EST eCW1 ([facility]) Unknown [address] [facility] [address] 04/21/2020 12:00:00 AM EST eCW1 ([facility]) Unknown [address] [facility] [address] 04/17/2020 12:00:00 AM EST eCW1 ([facility]) Unknown [address] [facility] [address] 04/12/2020 12:00:00 AM EST eCW1 ([facility]) Outpatient [address] [facility] Y [address] 04/12/2020 12:00:00 AM EST eCW1 ([facility]) Unknown [address] [facility] [address] 04/10/2020 12:00:00 AM EST eCW1 ([facility]) Outpatient [address] [facility] Y [address] 04/03/2020 12:00:00 AM EST eCW1 ([facility]) Unknown [address] [facility], [place] [address] 03/31/2020 12:00:00 AM EST eCW1 [facility] Outpatient Attender: VANNESSA Wrayillus 03/30/2020 01:30:00 PM EST MEDENT ([facility]) Outpatient [address] [facility], [place] [address] 03/28/2020 12:00:00 AM EST eCW1 ([facility]) Unknown [address] [facility] Y [address] 03/28/2020 12:00:00 AM EST eCW1 ([facility]) Unknown [address] [facility] Y [address] 03/24/2020 12:00:00 AM EST eCW1 ([facility]) Unknown [address] [facility], [place] [address] 03/24/2020 12:00:00 AM EST eCW1 ([facility]) Unknown [address] [facility] [address] 03/24/2020 12:00:00 AM EST eCW1 ([facility]) Outpatient<td ID="encounterTypeDescripti onID0">NEW PATIENT WITH REFERRAL</td><td>Mar Sarah DO</td><td>Jhony Amado MD [facility]</td><td>03/21/2020</td><td>8:13AM</td><td>10:17AM</td><td><content ID="encounterDiagnosisID0-0">Dry Eye Syndrome</content>, <content ID="encounterDiagnosisID0-1">Cataract Senile Nuclear</content>, <content ID="encounterDiagnosisID0-2">Vitreous Disorders Degeneration</content>, <content ID="encounterDiagnosisID0-3">Taking Medication For Diabetes Long-term Use of Insulin</content>, <content ID="encounterDiagnosisID0-4">Diabetes Mellitus Type 2 Without Complication</content>, <content ID="encounterDiagnosisID0-5">Corneal Dystrophy Endothelial</content>, <content ID="encounterDiagnosisID0-6">Transient Visual Loss</content></td> Attender: MAR Reagan MD [facility] 03/21/2020 08:13:00 AM EST - 03/21/2020 10:17:00 AM ES T Transient Visual LossCorneal Dystrophy EndothelialDiabetes Mellitus Type 2 Without ComplicationTaking Medication For Diabetes Long-term Use of InsulinVitreous Disorders DegenerationCataract Senile NuclearDry Eye Syndrome [place] (Jhony Lowery MD [facility]) Transient Visual Loss Corneal Dystrophy Endothelial Diabetes Mellitus Type 2 Without Complic ation Taking Medication For Diabetes Long-term Use of Insulin Vitreous Disorders Degeneration Cataract Senile Nuclear Dry Eye Syndrome Unknown [address] [facility] [address] 03/21/2020 12:00:00 AM EST eCW1 ([facility]) Outpatient [address] [facility] [address] 03/20/2020 12:00:00 AM EST eCW1 ([facility]) Unknown [address] [facility] Y [address] 03/20/2020 12:00:00 AM EST eCW1 ([facility]) Unknown [address] [facility] Y [address] 03/20/2020 12:00:00 AM EST eCW1 ([facility]) Outpatient Attender: CRISTOPHER REESE [facility] Office 06/2019 08:00:00 AM EST MEDENT ([facility] Unknown [address] [facility] Y [address] 03/16/2020 12:00:00 AM EST eCW1 ([facility]) Outpatient Attender: Silver Carrillo/Pancho/Ivan/Luba dl 03/15/2020 12:30:00 PM EST MEDENT ([facility]) Unknown [address] [facility] Y [address] 03/02/2020 12:00:00 AM EST eCW1 ([facility]) Unknown [address] [facility] Y [address] 03/01/2020 12:00:00 AM EST eCW1 ([facility]) Outpatient [address] [facility] Y [address] 03/01/2020 12:00:00 AM EST eCW1 ([facility]) Unknown [address] [facility] Y [address] 02/21/2020 12:00:00 AM EST eCW1 ([facility]) Outpatient [address] [facility] Y [address] 02/18/2020 12:00:00 AM EST eCW1 ([facility]) Outpatient [address] [facility] Y [address] 02/11/2020 12:00:00 AM EDT eCW1 ([facility]) Unknown [address] [facility] Y [address] 02/07/2020 12:00:00 AM EDT eCW1 ([facility]) Unknown [address] [facility] [address] 02/04/2020 12:00:00 AM EDT eCW1 ([facility]) Outpatient [address] [facility] [address] 02/03/2020 12:00:00 AM EDT eCW1 ([facility]) Outpatient [address] [facility] [address] 01/26/2020 12:00:00 AM EDT eCW1 ([facility]) Unknown [address] [facility] [address] 01/24/2020 12:00:00 AM EDT eCW1 ([facility]) Unknown [address] [facility] [address] 01/19/2020 12:00:00 AM EDT eCW1 ([facility]) Unknown [address] [facility] [address] 01/17/2020 12:00:00 AM EDT eCW1 ([facility]) Unknown [address] [facility] [address] 01/14/2020 12:00:00 AM EDT eCW1 ([facility]) Unknown [address] [facility] [address] 01/13/2020 12:00:00 AM EDT eCW1 ([facility]) Unknown [address] [facility] [address] 01/12/2020 12:00:00 AM EDT eCW1 ([facility]) Outpatient Attender: Toribio Carrillo/Pancho/Ivan/Reindl 01/10/2020 02:30:00 PM EDT MEDENT ([facility]) Office Visit Attender: Silver Carrillo/Pancho/Ivan/Rein dl 12/29/2019 09:50:00 AM EDT MEDENT ([facility] Office Visit Attender: Toribio Yilucia Carrillo/[place]/Ivan/Reindl 12/27/2019 03:00:00 PM EDT MED[facility] ([facility] [place] [address] [facility] [address] 12/24/2019 12:00:00 AM EDT eCW1 ([facility]) Outpatient Attender: CRISTOPHER REESE [facility] Office 04/2019 09:00:00 AM EDT MEDENT ([facility] Outpatient Attender: Silver Carrillo/Pancho/Ivan/Rein dl 11/10/2019 10:40:00 AM EDT MEDENT ([facility] Unknown [address] [facility] [address] 11/02/2019 12:00:00 AM EDT eCW1 ([facility]) Outpatient [address] [facility] [address] 11/02/2019 12:00:00 AM EDT eCW1 ([facility]) Outpatient [address] [facility] [address] 11/01/2019 12:00:00 AM EDT eCW1 ([facility]) Unknown [address] [facility] [address] 11/01/2019 12:00:00 AM EDT eCW1 ([facility]) Unknown [address] [facility] [address] 10/29/2019 12:00:00 AM EDT eCW1 ([facility]) Outpatient [address] [facility] [address] 10/25/2019 12:00:00 AM EDT eCW1 ([facility]) Unknown [address] [facility] [address] 10/25/2019 12:00:00 AM EDT eCW1 ([facility]) Unknown [address] [facility] [address] 10/21/2019 12:00:00 AM EDT eCW1 ([facility]) Unknown [address] [facility] [address] 10/20/2019 12:00:00 AM EDT [facility]CW1 [facility]) Outpatient Attender: CRISTOPHER REESE [facility] Office 09/13 10:30:00 AM EDT MEDENT ([facility] Outpatient Referrer: Tutu Sanchez MD 10/08/2019 05:33:00 AM EDT [facility] Unknown [address] [facility] [address] 09/30/2019 12:00:00 AM EDT eCW1 ([facility]) [place] [address] [facility] Y [address] 09/30/2019 12:00:00 AM EDT eCW1 ([facility]) Unknown [address] [facility] [address] 09/29/2019 12:00:00 AM EDT eCW1 ([facility]) Unknown [address] [facility] [address] 09/28/2019 12:00:00 AM EDT eCW1 ([facility]) Unknown [address] [facility] [address] 09/28/2019 12:00:00 AM EDT eCW1 ([facility]) Outpatient [address] [facility] [address] 09/27/2019 12:00:00 AM EDT eCW1 ([facility]) Unknown [address] [facility] [address] 09/22/2019 12:00:00 AM EDT eCW1 ([facility]) [facility] [address] [place] [address] 09/22/2019 12:00:00 AM EDT eCW1 ([facility]) Unknown [address] [facility] [address] 09/20/2019 12:00:00 AM EDT eCW1 ([facility]) Unknown [address] [facility] [address] 09/20/2019 12:00:00 AM EDT eCW1 ([facility]) Unknown [address] [facility] [address] 09/17/2019 12:00:00 AM EDT eCW1 ([facility]) Unknown [address] [facility] [address] 09/17/2019 12:00:00 AM EDT eCW1 ([facility]) [facility] [address] [facility] [address] 09/17/2019 12:00:00 AM EDT eCW1 ([facility]) [facility] [address] [facility] [address] 09/13/2019 12:00:00 AM EDT eCW1 ([facility]) Outpatient [address] [facility] [address] 09/10/2019 12:00:00 AM EDT eCW1 ([facility]) [facility] [address] [facility] [address] 09/09/2019 12:00:00 AM EDT eCW1 ([facility]) [facility] [address] [facility] [address] 09/09/2019 12:00:00 AM EDT eCW1 ([facility]) [facility] [address] [facility] [address] 09/07/2019 12:00:00 AM EDT eCW1 ([facility]) [facility] [address] [place] [address] 09/07/2019 12:00:00 AM EDT eCW1 ([facility]) Outpatient [address] [facility] [address] 09/03/2019 12:00:00 AM EDT eCW1 ([facility]) [address] [address] 09/01/2019 12:00:00 AM EDT eCW1 ([facility]) Outpatient Attender: CRISTOPHER REESE [facility] Office 08/12 10:30:00 AM EDT MEDENT ([facility] [address] [place] [address] 08/27/2019 12:00:00 AM EDT eCW1 ([facility]) [address] [place] [address] 08/26/2019 12:00:00 AM EDT eCW1 ([facility]) [address], [place] [address] 08/26/2019 12:00:00 AM EDT eCW1 ([facility]) Outpatient Referrer: Tutu Sanchez MD 08/24/2019 06:01:00 AM EDT [facility] [address] [address] 08/24/2019 12:00:00 AM EDT eCW1 ([facility]) [address] [address] 08/20/2019 12:00:00 AM EDT eCW1 ([facility]) [address] Y [address] 08/19/2019 12:00:00 AM EDT eCW1 ([facility]) [address], [place] [address] 08/18/2019 12:00:00 AM EDT eCW1 ([facility]) [address] [address] 08/18/2019 12:00:00 AM EDT eCW1 ([facility]) [facility] [address] [facility] [address] 08/17/2019 12:00:00 AM EDT eCW1 ([facility]) TeleMedicine Phone E/M by Phys 11-20 Min [address] [place] [address] 08/13/2019 12:00:00 AM EDT eCW1 ([facility]) Outpatient [address] [facility] [address] 08/12/2019 12:00:00 AM EDT eCW1 ([facility]) [facility] [address] [facility] [address] 08/12/2019 12:00:00 AM EDT eCW1 ([facility]) [facility] [address] [facility] [address] 08/11/2019 12:00:00 AM EDT eCW1 ([facility]) [facility] [address] [facility] [place] [address] 08/10/2019 12:00:00 AM EDT eCW1 ([facility]) [facility] [address] [facility] [address] 08/09/2019 12:00:00 AM EDT eCW1 ([facility]) [facility] [address] [facility] [address] 08/09/2019 12:00:00 AM EDT eCW1 ([facility]) [facility] [address] [facility] [address] 08/09/2019 12:00:00 AM EDT eCW1 ([facility]) Outpatient [address] [facility] [address] 08/06/2019 12:00:00 AM EDT eCW1 ([facility]) [address] [address] 08/04/2019 12:00:00 AM EDT eCW1 ([facility]) [facility] [address] [place] [address] Y [address] 08/02/2019 12:00:00 AM EDT eCW1 ([facility]) [facility] [address] [place] [address] Y [address] 08/02/2019 12:00:00 AM EDT eCW1 ([facility]) Outpatient [address] [place] [id number] Y [address] 07/30/2019 12:00:00 AM EDT eCW1 ([facility]) [address] [place] [address] 07/30/2019 12:00:00 AM EDT eCW1 ([facility]) Outpatient Attender: CRISTOPHER REESE [facility] Office 07/13 10:30:00 AM EDT MED[facility] ([facility] [address] [place] [address] 07/29/2019 12:00:00 AM EDT eCW1 ([facility]) [facility] [address] [place] [address] 07/29/2019 12:00:00 AM EDT eCW1 ([facility]) [address] [place] [address] 07/28/2019 12:00:00 AM EDT eCW1 ([facility]) [facility] [address] [place] [address] 07/28/2019 12:00:00 AM EDT eCW1 ([facility]) Unknown [address] [place] [id number] Y [address] 07/27/2019 12:00:00 AM EDT eCW1 ([facility]) [address] [place] [address] 07/27/2019 12:00:00 AM EDT eCW1 ([facility]) [facility] [address] [facility] [address] 07/27/2019 12:00:00 AM EDT eCW1 ([facility]) [facility] [address] [facility] [address] 07/26/2019 12:00:00 AM EDT eCW1 ([facility]) Outpatient Referrer: Tutu Sanchez MD 07/23/2019 12:47:00 PM EDT [facility] Outpatient [address] [facility] [address] 07/23/2019 12:00:00 AM EDT [facility]CW1 [facility]) [facility] [address] [facility] [address] 07/22/2019 12:00:00 AM EDT eCW1 ([facility]) [facility] [address] [place] [address], [place] [address] 07/21/2019 12:00:00 AM EDT eCW1 ([facility]) [place] [address] [facility] [address] 07/16/2019 12:00:00 AM EDT eCW1 ([facility]) [facility] [address] [facility] [address] 07/16/2019 12:00:00 AM EDT eCW1 ([facility]) [facility] [address] [place] [address], [place] [address] 07/16/2019 12:00:00 AM EDT eCW1 ([facility]) [facility] [address] [facility] [address] 07/13/2019 12:00:00 AM EDT eCW1 ([facility]) [place] [address] [facility] [address] 07/13/2019 12:00:00 AM EDT eCW1 ([facility]) [facility] [address] [place] [address], [place] [address] 07/12/2019 12:00:00 AM EDT eCW1 ([facility]) [facility] [address] [place] [address], [place] [address] 07/12/2019 12:00:00 AM EDT eCW1 ([facility]) [facility] [address] [place] [address], [place] [address] 07/12/2019 12:00:00 AM EDT eCW1 ([facility]) [facility] [address] [place] [address], [place] [address] 07/08/2019 12:00:00 AM EDT eCW1 ([facility]) [facility] [address] [place] [address], [place] [address] 07/07/2019 12:00:00 AM EDT eCW1 ([facility]) [facility] [address] [place] [address], [place] [address] 07/06/2019 12:00:00 AM EDT eCW1 ([facility]) [facility] [address] [place] [address], [place] [address] 07/05/2019 12:00:00 AM EDT eCW1 ([facility]) [facility] [address] [place] [address], [place] [address] 07/05/2019 12:00:00 AM EDT eCW1 ([facility]) [facility] [address] [place] [address], [place] [address] 07/05/2019 12:00:00 AM EDT eCW1 ([facility]) [facility] [address] [place] [address], [place] [address] 07/05/2019 12:00:00 AM EDT eCW1 ([facility]) [address] [address] 07/03/2019 12:00:00 AM EDT eCW1 ([facility]) [facility] [address] [place] [address], [place] [address] 07/02/2019 12:00:00 AM EDT eCW1 ([facility]) [facility] [address] [place] [address], [place] [address] 07/01/2019 12:00:00 AM EDT eCW1 ([facility]) [facility] [address] [place] [address] 06/29/2019 12:00:00 AM EDT eCW1 ([facility]) [address] [address] 06/29/2019 12:00:00 AM EDT [facility]CW1 ([facility] Outpatient Attender: CRISTOPHER REESE [facility] Office 06/12 02:30:00 PM EDT [facility] ([facility] [address] [address] 06/25/2019 12:00:00 AM EDT eCW1 ([facility]) [address] [address] 06/23/2019 12:00:00 AM EDT eCW1 ([facility]) [address] [address] 06/23/2019 12:00:00 AM EDT eCW1 ([facility] [address] [address] 06/22/2019 12:00:00 AM EDT eCW1 ([facility]) Outpatient [address] [place] [address], [place] [address] 06/21/2019 12:00:00 AM EDT eCW1 ([facility]) [address] [address] 06/18/2019 12:00:00 AM EST eCW1 ([facility]) [facility] [address] [place] [address], [place] [address] 06/17/2019 12:00:00 AM EST eCW1 ([facility]) [facility] [address] [place] [address], [place] [address] 06/17/2019 12:00:00 AM EST eCW1 ([facility]) [facility] [address] [place] [address], [place] [address] 06/15/2019 12:00:00 AM EST eCW1 ([facility]) [address] [address] 06/15/2019 12:00:00 AM EST eCW1 ([facility]) [address] [address] 06/14/2019 12:00:00 AM EST eCW1 ([facility]) [address] [address] 06/14/2019 12:00:00 AM EST eCW1 ([facility]) [address] [address] 06/11/2019 12:00:00 AM EST eCW1 ([facility]) [address] [address] 06/11/2019 12:00:00 AM EST eCW1 ([facility]) [address] [address] 06/11/2019 12:00:00 AM EST eCW1 ([facility]) [address] [address] 06/08/2019 12:00:00 AM EST eCW1 ([facility]) [address] [address] 06/07/2019 12:00:00 AM EST eCW1 ([facility]) [address] [address] 06/06/2019 12:00:00 AM EST eCW1 ([facility]) [address] [address] 06/04/2019 12:00:00 AM EST eCW1 ([facility]) [address] [address] 05/31/2019 12:00:00 AM EST eCW1 ([facility]) Outpatient Attender: CRISTOPHER REESE [facility] Office 05/15 01:30:00 PM EST [facility] ([facility] [address] [address] 05/19/2019 12:00:00 AM EST eCW1 ([facility]) [address] [address] 05/18/2019 12:00:00 AM EST eCW1 ([facility]) [address] [address] 05/17/2019 12:00:00 AM EST eCW1 ([facility]) [address] [address] 05/14/2019 12:00:00 AM EST eCW1 ([facility]) [address] [address] 05/13/2019 12:00:00 AM EST eCW1 ([facility]) [address] [address] 05/12/2019 12:00:00 AM EST eCW1 ([facility]) [address] [address] 05/08/2019 12:00:00 AM EST eCW1 ([facility]) [facility] [place] [address] [facility] [address] 05/05/2019 12:00:00 AM EST eCW1 ([facility]) [facility] [place] [address] [facility] [address] 05/01/2019 12:00:00 AM EST eCW1 ([facility]) [facility] [place] [address] [place] [address], [place] [address] 04/29/2019 12:00:00 AM EST eCW1 ([facility]) [facility] [address] [place] [address], [place] [address] 04/26/2019 12:00:00 AM EST eCW1 ([facility]) [facility] [address] [place] [address], [place] [address] 04/22/2019 12:00:00 AM EST eCW1 ([facility]) [facility] [place] [address] [place] [address], [place] [address] 04/20/2019 12:00:00 AM EST eCW1 ([facility]) [facility] [address] [place] [address], [place] [address] 04/19/2019 12:00:00 AM EST eCW1 ([facility]) [facility] [address] [place] [address], [place] [address] 04/15/2019 12:00:00 AM EST eCW1 ([facility]) [facility] [address] [place] [address], [place] [address] 04/15/2019 12:00:00 AM EST eCW1 ([facility]) [address] [address] 04/13/2019 12:00:00 AM EST eCW1 ([facility]) [address] [address] 04/09/2019 12:00:00 AM EST eCW1 ([facility]) [facility] [address] [facility] [address] 04/08/2019 12:00:00 AM EST eCW1 ([facility]) [facility] [address] [facility] [address] 04/02/2019 12:00:00 AM EST eCW1 ([facility]) [facility] [address] [facility] [address] 04/01/2019 12:00:00 AM EST eCW1 ([facility]) [facility] [address] [facility] [address] 03/29/2019 12:00:00 AM EST eCW1 ([facility]) Immunizations Vaccine Date Status Description Data Source(s) Toradol 60mg/2mL (Ketorolac) 07/30/2019 08:29:00 AM EDT completed eCW1 ([facility]) Toradol 60mg/2mL (Ketorolac) 07/30/2019 08:29:00 AM EDT completed eCW1 ([facility]) Toradol 60mg/2mL (Ketorolac) 07/30/2019 08:29:00 AM EDT completed eCW1 ([facility]) Toradol 60mg/2mL (Ketorolac) 07/30/2019 08:29:00 AM EDT completed eCW1 ([facility]) Toradol 60mg/2mL (Ketorolac) 07/30/2019 08:29:00 AM EDT completed eCW1 ([facility]) Toradol 60mg/2mL (Ketorolac) 07/30/2019 08:29:00 AM EDT completed eCW1 ([facility]) Toradol 60mg/2mL (Ketorolac) 07/30/2019 08:29:00 AM EDT completed eCW1 ([facility]) Toradol 60mg/2mL (Ketorolac) 07/30/2019 08:29:00 AM EDT completed eCW1 ([facility]) Toradol 60mg/2mL (Ketorolac) 07/30/2019 08:29:00 AM EDT completed eCW1 ([facility]) Toradol 60mg/2mL (Ketorolac) 07/30/2019 08:29:00 AM EDT completed eCW1 ([facility]) Toradol 60mg/2mL (Ketorolac) 07/30/2019 08:29:00 AM EDT completed eCW1 ([facility]) Toradol 60mg/2mL (Ketorolac) 07/30/2019 08:29:00 AM EDT completed eCW1 ([facility]) Toradol 60mg/2mL (Ketorolac) 07/30/2019 08:29:00 AM EDT completed eCW1 ([facility]) Toradol 60mg/2mL (Ketorolac) 07/30/2019 08:29:00 AM EDT completed eCW1 ([facility]) Toradol 60mg/2mL (Ketorolac) 07/30/2019 08:29:00 AM EDT completed eCW1 ([facility]) Toradol 60mg/2mL (Ketorolac) 07/30/2019 08:29:00 AM EDT completed eCW1 ([facility]) Toradol 60mg/2mL (Ketorolac) 07/30/2019 08:29:00 AM EDT completed eCW1 ([facility]) Toradol 60mg/2mL (Ketorolac) 07/30/2019 08:29:00 AM EDT completed eCW1 ([facility]) Toradol 60mg/2mL (Ketorolac) 07/30/2019 08:29:00 AM EDT completed eCW1 ([facility]) Toradol 60mg/2mL (Ketorolac) 07/30/2019 08:29:00 AM EDT completed eCW1 ([facility]) Toradol 60mg/2mL (Ketorolac) 07/30/2019 08:29:00 AM EDT completed eCW1 ([facility]) Toradol 60mg/2mL (Ketorolac) 07/30/2019 08:29:00 AM EDT completed eCW1 ([facility]) Toradol 60mg/2mL (Ketorolac) 07/30/2019 08:29:00 AM EDT completed eCW1 ([facility]) Toradol 60mg/2mL (Ketorolac) 07/30/2019 08:29:00 AM EDT completed eCW1 ([facility]) Toradol 60mg/2mL (Ketorolac) 07/30/2019 08:29:00 AM EDT completed eCW1 ([facility]) Toradol 60mg/2mL (Ketorolac) 07/30/2019 08:29:00 AM EDT completed eCW1 ([facility]) Toradol 60mg/2mL (Ketorolac) 07/30/2019 08:29:00 AM EDT completed eCW1 ([facility]) Toradol 60mg/2mL (Ketorolac) 07/30/2019 08:29:00 AM EDT completed eCW1 ([facility]) Toradol 60mg/2mL (Ketorolac) 07/30/2019 08:29:00 AM EDT completed eCW1 ([facility]) Toradol 60mg/2mL (Ketorolac) 07/30/2019 08:29:00 AM EDT completed eCW1 ([facility]) Toradol 60mg/2mL (Ketorolac) 07/30/2019 08:29:00 AM EDT completed eCW1 ([facility]) Toradol 60mg/2mL (Ketorolac) 07/30/2019 08:29:00 AM EDT completed eCW1 ([facility]) Toradol 60mg/2mL (Ketorolac) 07/30/2019 08:29:00 AM EDT completed eCW1 ([facility]) Toradol 60mg/2mL (Ketorolac) 07/30/2019 08:29:00 AM EDT completed eCW1 ([facility]) Toradol 60mg/2mL (Ketorolac) 07/30/2019 08:29:00 AM EDT completed eCW1 ([facility]) Toradol 60mg/2mL (Ketorolac) 07/30/2019 08:29:00 AM EDT completed eCW1 ([facility]) Toradol 60mg/2mL (Ketorolac) 07/30/2019 08:29:00 AM EDT completed eCW1 ([facility]) Toradol 60mg/2mL (Ketorolac) 07/30/2019 08:29:00 AM EDT completed eCW1 ([facility]) Toradol 60mg/2mL (Ketorolac) 07/30/2019 08:29:00 AM EDT completed eCW1 ([facility]) Toradol 60mg/2mL (Ketorolac) 07/30/2019 08:29:00 AM EDT completed eCW1 ([facility]) Toradol 60mg/2mL (Ketorolac) 07/30/2019 08:29:00 AM EDT completed eCW1 ([facility]) Toradol 60mg/2mL (Ketorolac) 07/30/2019 08:29:00 AM EDT completed eCW1 ([facility]) Toradol 60mg/2mL (Ketorolac) 07/30/2019 08:29:00 AM EDT completed eCW1 ([facility]) Toradol 60mg/2mL (Ketorolac) 07/30/2019 08:29:00 AM EDT completed eCW1 ([facility]) Toradol 60mg/2mL (Ketorolac) 07/30/2019 08:29:00 AM EDT completed eCW1 ([facility]) Toradol 60mg/2mL (Ketorolac) 07/30/2019 08:29:00 AM EDT completed eCW1 ([facility]) Toradol 60mg/2mL (Ketorolac) 07/30/2019 08:29:00 AM EDT completed eCW1 ([facility]) Toradol 60mg/2mL (Ketorolac) 07/30/2019 08:29:00 AM EDT completed eCW1 ([facility]) Toradol 60mg/2mL (Ketorolac) 07/30/2019 08:29:00 AM EDT completed eCW1 ([facility]) Toradol 60mg/2mL (Ketorolac) 07/30/2019 08:29:00 AM EDT completed eCW1 ([facility]) Toradol 60mg/2mL (Ketorolac) 07/30/2019 08:29:00 AM EDT completed eCW1 ([facility]) Toradol 60mg/2mL (Ketorolac) 07/30/2019 08:29:00 AM EDT completed eCW1 ([facility]) Toradol 60mg/2mL (Ketorolac) 07/30/2019 08:29:00 AM EDT completed eCW1 ([facility]) Toradol 60mg/2mL (Ketorolac) 07/30/2019 08:29:00 AM EDT completed eCW1 ([facility]) Toradol 60mg/2mL (Ketorolac) 07/30/2019 08:29:00 AM EDT completed eCW1 ([facility]) Toradol 60mg/2mL (Ketorolac) 07/30/2019 08:29:00 AM EDT completed eCW1 ([facility]) Toradol 60mg/2mL (Ketorolac) 07/30/2019 08:29:00 AM EDT completed eCW1 ([facility]) Toradol 60mg/2mL (Ketorolac) 07/30/2019 08:29:00 AM EDT completed eCW1 ([facility]) Toradol 60mg/2mL (Ketorolac) 07/30/2019 08:29:00 AM EDT completed eCW1 ([facility]) Toradol 60mg/2mL (Ketorolac) 07/30/2019 08:29:00 AM EDT completed eCW1 ([facility]) Toradol 60mg/2mL (Ketorolac) 07/30/2019 08:29:00 AM EDT completed eCW1 ([facility]) Toradol 60mg/2mL (Ketorolac) 07/30/2019 08:29:00 AM EDT completed eCW1 ([facility]) Toradol 60mg/2mL (Ketorolac) 07/30/2019 08:29:00 AM EDT completed eCW1 ([facility]) Toradol 60mg/2mL (Ketorolac) 07/30/2019 08:29:00 AM EDT completed eCW1 ([facility]) Toradol 60mg/2mL (Ketorolac) 07/30/2019 08:29:00 AM EDT completed eCW1 ([facility]) Toradol 60mg/2mL (Ketorolac) 07/30/2019 08:29:00 AM EDT completed eCW1 ([facility]) Toradol 60mg/2mL (Ketorolac) 07/30/2019 08:29:00 AM EDT completed eCW1 ([facility]) Toradol 60mg/2mL (Ketorolac) 07/30/2019 08:29:00 AM EDT completed eCW1 ([facility]) Toradol 60mg/2mL (Ketorolac) 07/30/2019 08:29:00 AM EDT completed eCW1 ([facility]) Toradol 60mg/2mL (Ketorolac) 07/30/2019 08:29:00 AM EDT completed eCW1 ([facility]) Medications Medication Brand Name Start Date Product Form Dose Route Admi nistrative Instructions Pharmacy Instructions Status Indications Reaction Description Data Source(s) 100,000 unit/gram 05/22/2020 12:00:00 AM EST powder 30 APPLY TO AFFECTED AREA(S) AROUND STOMA TWO TIMES A DAY DIRECTED UNTIL HEALED APPLY TO AFFECTED AREA(S) AROUND STOMA TWO TIMES A DAY DIRECTED UNTIL HEALED SOLD: 05/22/2020 [facility] Mupirocin 20 MG/ML Topical Cream Mupirocin Calcium 2 % Mupir ocin Calcium 2 % 05/12/2020 12:00:00 AM EST 1.0 {application} act nba Mupirocin Calcium 2 % eCW1 ([facility]) Mupirocin 20 MG/ML Topical Cream Mupirocin Calcium 2 % Mupir ocin Calcium 2 % 05/12/2020 12:00:00 AM EST 1.0 {application} act nba Mupirocin Calcium 2 % eCW1 ([facility]) 0.01 % (0.1 mg/gram) 05/12/2020 12:00:00 AM EST cream 42 INSERT ONE GRAM VAGINALLY EVERY DAY INSERT ONE GRAM VAGINALLY EVERY DAY SOLD: 05/12/2020 [facility] 0.6 mg/0.1 mL (18 mg/3 mL) 05/10/2020 12:00:00 AM EST pen in jector 6 INJECT 0.6MG ONCE DAILY FOR 1 WEEK THEN INCREASE TO 1.2MG ONCE DAILY INJECT 0.6MG ONCE DAILY FOR 1 WEEK THEN INCREASE TO 1.2MG ONCE DAILY SOLD: 05/10/2020 [facility] 10 mg 05/04/2020 12:00:00 AM EST tablet 90 TAKE ONE TABLET BY MOUTH THREE TIMES A DAY BEFORE MEALS TAKE ONE TABLET BY MOUTH THREE TIMES A D AY BEFORE MEALS SOLD: 05/04/2020 [facility] 100,000 unit/gram 04/28/2020 12:00:00 AM EST powder 30 APPLY TO AFFECTED AREA(S) AROUND STOMA TWO TIMES A DAY DIRECTED UNTIL HEALED APPLY TO AFFECTED AREA(S) AROUND STOMA TWO TIMES A DAY DIRECTED UNTIL HEALED SOLD: 05/10/2020 [facility] 100,000 unit/gram 04/28/2020 12:00:00 AM EST powder 30 APPLY TO AFFECTED AREA(S) AROUND STOMA TWO TIMES A DAY DIRECTED UNTIL HEALED APPLY TO AFFECTED AREA(S) AROUND STOMA TWO TIMES A DAY DIRECTED UNTIL HEALED SOLD: 04/28/2020 [facility] 80 mg 04/26/2020 12:00:00 AM EST tablet,chewable 180 CHEW 2 TABLETS BY MOUTH 3 TIMES A DAY AFTER MEALS & AT BED NEEDED CHEW 2 TABLETS BY MOUTH 3 TIMES A DAY AFTER MEALS & AT BED NEEDED SOLD: 04/26/2020 [facility] 80 mg 04/26/2020 12:00:00 AM EST tablet,chewable 180 CHEW 2 TABLETS BY MOUTH 3 TIMES A DAY AFTER MEALS & AT BED NEEDED CHEW 2 TABLETS BY MOUTH 3 TIMES A DAY AFTER MEALS & AT BED NEEDED SOLD: 05/24/2020 [facility] 50 mcg/actuation 04/18/2020 12:00:00 AM EST spray,non-aeroso l 17 SPRAY TWO SPRAYS IN EACH NOSTRIL ONCE A DAY SPRAY TWO SPRAYS IN EACH NOSTRIL ONCE A DAY SOLD: 04/18/2020 [facility] 50 mcg/actuation 04/18/2020 12:00:00 AM EST spray,non-aeroso l 17 SPRAY TWO SPRAYS IN EACH NOSTRIL ONCE A DAY SPRAY TWO SPRAYS IN EACH NOSTRIL ONCE A DAY SOLD: 05/15/2020 [facility] 90 mcg/actuation 04/17/2020 12:00:00 AM EST HFA aerosol inha ler 8 INHALE TWO PUFFS BY MOUTH EVERY 4 HOURS NEEDED INHALE TWO PUFFS BY MOUTH EVERY 4 HOURS NEEDED SOLD: 05/15/2020 [facility] 90 mcg/actuation 04/17/2020 12:00:00 AM EST HFA aerosol inha ler 8 INHALE TWO PUFFS BY MOUTH EVERY 4 HOURS NEEDED INHALE TWO PUFFS BY MOUTH EVERY 4 HOURS NEEDED SOLD: 04/17/2020 [facility] 50 mg 04/15/2020 12:00:00 AM EST tablet 120 TAKE ONE TABLET BY MOUTH EVERY MORNING AND TAKE THREE TABLETS BY MOUTH AT BEDTIME, DIRECTED TAKE ONE TABLET BY MOUTH EVERY MORNING AND TAKE THREE TABLETS BY MOUTH AT BEDTIME, DIRECTED SOLD: 05/19/2020 [facility] 50 mg 04/15/2020 12:00:00 AM EST tablet 120 TAKE ONE TABLET BY MOUTH EVERY MORNING AND TAKE THREE TABLETS BY MOUTH AT BEDTIME, DIRECTED TAKE ONE TABLET BY MOUTH EVERY MORNING AND TAKE THREE TABLETS BY MOUTH AT BEDTIME, DIRECTED SOLD: 04/16/2020 [facility] Doxycycline Monohydrate 100 MG Oral Capsule Doxycycline [place] hydrate 100 MG 04/12/2020 12:00:00 AM EST 1.0 {capsule} suspend ed Doxycycline Monohydrate 100 MG eCW1 ([facility]) Doxycycline Monohydrate 100 MG Oral Capsule Doxycycline [place] hydrate 100 MG 04/12/2020 12:00:00 AM EST 1.0 {capsule} active Doxycycline Monohydrate 100 MG eCW1 ([facility]) Mometasone Furoate 50 MCG/ACT Mometasone Furoate 50 MCG/ACT 04/12/2020 12:00:00 AM EST 2.0 {sprays_in_each_nostril} active Mometasone Furoate 50 MCG/ACT eCW1 ([facility]) Doxycycline Monohydrate 100 MG Oral Capsule Doxycycline [place] hydrate 100 MG 04/12/2020 12:00:00 AM EST 1.0 {capsule} active Doxycycline Monohydrate 100 MG eCW1 ([facility]) Doxycycline Monohydrate 100 MG Oral Capsule Doxycycline [place] hydrate 100 MG 04/12/2020 12:00:00 AM EST 1.0 {capsule} active Doxycycline Monohydrate 100 MG eCW1 ([facility]) mesalamine 1000 MG Rectal Suppository Mesalamine 1000 MG Mes alamine 1000 MG 04/12/2020 12:00:00 AM EST 1.0 {suppository_at_bedtime} active Mesalamine 1000 MG eCW1 ([facility]) 10 gram/15 mL 04/12/2020 12:00:00 AM EST solution 1419 TAKE 15ML BY MOUTH THREE TIMES A DAY TAKE 15ML BY MOUTH THREE TIMES A DAY SOLD: 05/10/2020 [facility] Mometasone Furoate 50 MCG/ACT Mometasone Furoate 50 MCG/ACT 04/12/2020 12:00:00 AM EST 2.0 {sprays_in_each_nostril} active Mometasone Furoate 50 MCG/ACT eCW1 ([facility]) mesalamine 1000 MG Rectal Suppository Mesalamine 1000 MG Mes alamine 1000 MG 04/12/2020 12:00:00 AM EST 1.0 {suppository_at_bedtime} active Mesalamine 1000 MG eCW1 ([facility]) Mometasone Furoate 50 MCG/ACT Mometasone Furoate 50 MCG/ACT 04/12/2020 12:00:00 AM EST 2.0 {sprays_in_each_nostril} active Mometasone Furoate 50 MCG/ACT eCW1 ([facility]) Mometasone Furoate 50 MCG/ACT Mometasone Furoate 50 MCG/ACT 04/12/2020 12:00:00 AM EST 2.0 {sprays_in_each_nostril} active Mometasone Furoate 50 MCG/ACT eCW1 ([facility]) mesalamine 1000 MG Rectal Suppository Mesalamine 1000 MG Mes alamine 1000 MG 04/12/2020 12:00:00 AM EST 1.0 {suppository_at_bedtime} active Mesalamine 1000 MG eCW1 ([facility]) mesalamine 1000 MG Rectal Suppository Mesalamine 1000 MG Mes alamine 1000 MG 04/12/2020 12:00:00 AM EST 1.0 {suppository_at_bedtime} active Mesalamine 1000 MG eCW1 ([facility]) mesalamine 1000 MG Rectal Suppository Mesalamine 1000 MG Mes alamine 1000 MG 04/12/2020 12:00:00 AM EST 1.0 {suppository_at_bedtime} active Mesalamine 1000 MG eCW1 ([facility]) Mometasone Furoate 50 MCG/ACT Mometasone Furoate 50 MCG/ACT 04/12/2020 12:00:00 AM EST 2.0 {sprays_in_each_nostril} active Mometasone Furoate 50 MCG/ACT eCW1 ([facility]) mesalamine 1000 MG Rectal Suppository Mesalamine 1000 MG Mes alamine 1000 MG 04/12/2020 12:00:00 AM EST 1.0 {suppository_at_bedtime} active Mesalamine 1000 MG eCW1 ([facility]) Doxycycline Monohydrate 100 MG Oral Capsule Doxycycline [place] hydrate 100 MG 04/12/2020 12:00:00 AM EST 1.0 {capsule} active Doxycycline Monohydrate 100 MG eCW1 ([facility]) 12 % 04/12/2020 12:00:00 AM EST cream 140 APPLY 1 APPLICATION TO FEET TWICE A DAY APPLY 1 APPLICATION TO FEET TWICE A DAY SOLD: 05/10/2020 [facility] mesalamine 1000 MG Rectal Suppository Mesalamine 1000 MG Mes alamine 1000 MG 04/12/2020 12:00:00 AM EST 1.0 {suppository_at_bedtime} active Mesalamine 1000 MG eCW1 ([facility]) Mometasone Furoate 50 MCG/ACT Mometasone Furoate 50 MCG/ACT 04/12/2020 12:00:00 AM EST 2.0 {sprays_in_each_nostril} active Mometasone Furoate 50 MCG/ACT eCW1 ([facility]) mesalamine 1000 MG Rectal Suppository Mesalamine 1000 MG Mes alamine 1000 MG 04/12/2020 12:00:00 AM EST 1.0 {suppository_at_bedtime} active Mesalamine 1000 MG eCW1 ([facility]) Doxycycline Monohydrate 100 MG Oral Capsule Doxycycline [place] hydrate 100 MG 04/12/2020 12:00:00 AM EST 1.0 {capsule} active Doxycycline Monohydrate 100 MG eCW1 ([facility]) mesalamine 1000 MG Rectal Suppository Mesalamine 1000 MG Mes alamine 1000 MG 04/12/2020 12:00:00 AM EST 1.0 {suppository_at_bedtime} active Mesalamine 1000 MG eCW1 ([facility]) 1,000 mg 04/12/2020 12:00:00 AM EST suppository 30 INSERT ONE SUPPOSITORY RECTALLY AT BEDTIME INSERT ONE SUPPOSITORY RECTALLY AT BEDTIME SOLD: 05/10/2020 [facility] Doxycycline Monohydrate 100 MG Oral Capsule Doxycycline [place] hydrate 100 MG 04/12/2020 12:00:00 AM EST 1.0 {capsule} active Doxycycline Monohydrate 100 MG eCW1 ([facility]) 12 % 04/12/2020 12:00:00 AM EST cream 140 APPLY 1 APPLICATION TO FEET TWICE A DAY APPLY 1 APPLICATION TO FEET TWICE A DAY SOLD: 04/12/2020 [facility] 10 gram/15 mL 04/12/2020 12:00:00 AM EST solution 1419 TAKE 15ML BY MOUTH THREE TIMES A DAY TAKE 15ML BY MOUTH THREE TIMES A DAY SOLD: 04/12/2020 [facility] Doxycycline Monohydrate 100 MG Oral Capsule Doxycycline [place] hydrate 100 MG 04/12/2020 12:00:00 AM EST 1.0 {capsule} active Doxycycline Monohydrate 100 MG eCW1 ([facility]) Mometasone Furoate 50 MCG/ACT Mometasone Furoate 50 MCG/ACT 04/12/2020 12:00:00 AM EST 2.0 {sprays_in_each_nostril} active Mometasone Furoate 50 MCG/ACT eCW1 ([facility]) mesalamine 1000 MG Rectal Suppository Mesalamine 1000 MG Mes alamine 1000 MG 04/12/2020 12:00:00 AM EST 1.0 {suppository_at_bedtime} active Mesalamine 1000 MG eCW1 ([facility]) mesalamine 1000 MG Rectal Suppository Mesalamine 1000 MG Mes alamine 1000 MG 04/12/2020 12:00:00 AM EST 1.0 {suppository_at_bedtime} active Mesalamine 1000 MG eCW1 ([facility]) Doxycycline Monohydrate 100 MG Oral Capsule Doxycycline [place] hydrate 100 MG 04/12/2020 12:00:00 AM EST 1.0 {capsule} active Doxycycline Monohydrate 100 MG eCW1 ([facility]) mesalamine 1000 MG Rectal Suppository Mesalamine 1000 MG Mes alamine 1000 MG 04/12/2020 12:00:00 AM EST 1.0 {suppository_at_bedtime} active Mesalamine 1000 MG eCW1 ([facility]) mesalamine 1000 MG Rectal Suppository Mesalamine 1000 MG Mes alamine 1000 MG 04/12/2020 12:00:00 AM EST 1.0 {suppository_at_bedtime} active Mesalamine 1000 MG eCW1 ([facility]) Mometasone Furoate 50 MCG/ACT Mometasone Furoate 50 MCG/ACT 04/12/2020 12:00:00 AM EST 2.0 {sprays_in_each_nostril} active Mometasone Furoate 50 MCG/ACT eCW1 ([facility]) mesalamine 1000 MG Rectal Suppository Mesalamine 1000 MG Mes alamine 1000 MG 04/12/2020 12:00:00 AM EST 1.0 {suppository_at_bedtime} active Mesalamine 1000 MG eCW1 ([facility]) Mometasone Furoate 50 MCG/ACT Mometasone Furoate 50 MCG/ACT 04/12/2020 12:00:00 AM EST 2.0 {sprays_in_each_nostril} active Mometasone Furoate 50 MCG/ACT eCW1 ([facility]) Mometasone Furoate 50 MCG/ACT Mometasone Furoate 50 MCG/ACT 04/12/2020 12:00:00 AM EST 2.0 {sprays_in_each_nostril} active Mometasone Furoate 50 MCG/ACT eCW1 ([facility]) Doxycycline Monohydrate 100 MG Oral Capsule Doxycycline [place] hydrate 100 MG 04/12/2020 12:00:00 AM EST 1.0 {capsule} active Doxycycline Monohydrate 100 MG eCW1 ([facility]) mesalamine 1000 MG Rectal Suppository Mesalamine 1000 MG Mes alamine 1000 MG 04/12/2020 12:00:00 AM EST 1.0 {suppository_at_bedtime} active Mesalamine 1000 MG eCW1 ([facility]) Doxycycline Monohydrate 100 MG Oral Capsule Doxycycline [place] hydrate 100 MG 04/12/2020 12:00:00 AM EST 1.0 {capsule} active Doxycycline Monohydrate 100 MG eCW1 ([facility]) Mometasone Furoate 50 MCG/ACT Mometasone Furoate 50 MCG/ACT 04/12/2020 12:00:00 AM EST 2.0 {sprays_in_each_nostril} active Mometasone Furoate 50 MCG/ACT eCW1 ([facility]) Doxycycline Monohydrate 100 MG Oral Capsule Doxycycline [place] hydrate 100 MG 04/12/2020 12:00:00 AM EST 1.0 {capsule} active Doxycycline Monohydrate 100 MG eCW1 ([facility]) 100 mg 04/12/2020 12:00:00 AM EST capsule 20 TAKE ONE CAPSULE BY MOUTH TWICE A DAY FOR 10 DAYS TAKE ONE CAPSULE BY MOUTH TWICE A DAY FOR 10 DAYS SOLD : 04/12/2020 [facility] Doxycycline Monohydrate 100 MG Oral Capsule Doxycycline [place] hydrate 100 MG 04/12/2020 12:00:00 AM EST 1.0 {capsule} active Doxycycline Monohydrate 100 MG eCW1 ([facility]) Mometasone Furoate 50 MCG/ACT Mometasone Furoate 50 MCG/ACT 04/12/2020 12:00:00 AM EST 2.0 {sprays_in_each_nostril} active Mometasone Furoate 50 MCG/ACT eCW1 ([facility]) Mometasone Furoate 50 MCG/ACT Mometasone Furoate 50 MCG/ACT 04/12/2020 12:00:00 AM EST 2.0 {sprays_in_each_nostril} active Mometasone Furoate 50 MCG/ACT eCW1 ([facility]) Mometasone Furoate 50 MCG/ACT Mometasone Furoate 50 MCG/ACT 04/12/2020 12:00:00 AM EST 2.0 {sprays_in_each_nostril} active Mometasone Furoate 50 MCG/ACT eCW1 ([facility]) Mometasone Furoate 50 MCG/ACT Mometasone Furoate 50 MCG/ACT 04/12/2020 12:00:00 AM EST 2.0 {sprays_in_each_nostril} active Mometasone Furoate 50 MCG/ACT eCW1 ([facility]) Mometasone Furoate 50 MCG/ACT Mometasone Furoate 50 MCG/ACT 04/12/2020 12:00:00 AM EST 2.0 {sprays_in_each_nostril} active Mometasone Furoate 50 MCG/ACT eCW1 ([facility]) mesalamine 1000 MG Rectal Suppository Mesalamine 1000 MG Mes alamine 1000 MG 04/12/2020 12:00:00 AM EST 1.0 {suppository_at_bedtime} active Mesalamine 1000 MG eCW1 ([facility]) mesalamine 1000 MG Rectal Suppository Mesalamine 1000 MG Mes alamine 1000 MG 04/12/2020 12:00:00 AM EST 1.0 {suppository_at_bedtime} active Mesalamine 1000 MG eCW1 ([facility]) mesalamine 1000 MG Rectal Suppository Mesalamine 1000 MG Mes alamine 1000 MG 04/12/2020 12:00:00 AM EST 1.0 {suppository_at_bedtime} active Mesalamine 1000 MG eCW1 ([facility]) Mometasone Furoate 50 MCG/ACT Mometasone Furoate 50 MCG/ACT 04/12/2020 12:00:00 AM EST 2.0 {sprays_in_each_nostril} active Mometasone Furoate 50 MCG/ACT eCW1 ([facility]) Doxycycline Monohydrate 100 MG Oral Capsule Doxycycline [place] hydrate 100 MG 04/12/2020 12:00:00 AM EST 1.0 {capsule} suspend ed Doxycycline Monohydrate 100 MG eCW1 ([facility]) Mometasone Furoate 50 MCG/ACT Mometasone Furoate 50 MCG/ACT 04/12/2020 12:00:00 AM EST 2.0 {sprays_in_each_nostril} active Mometasone Furoate 50 MCG/ACT eCW1 ([facility]) Mometasone Furoate 50 MCG/ACT Mometasone Furoate 50 MCG/ACT 04/12/2020 12:00:00 AM EST 2.0 {sprays_in_each_nostril} active Mometasone Furoate 50 MCG/ACT eCW1 ([facility]) mesalamine 1000 MG Rectal Suppository Mesalamine 1000 MG Mes alamine 1000 MG 04/12/2020 12:00:00 AM EST 1.0 {suppository_at_bedtime} active Mesalamine 1000 MG eCW1 ([facility]) Doxycycline Monohydrate 100 MG Oral Capsule Doxycycline [place] hydrate 100 MG 04/12/2020 12:00:00 AM EST 1.0 {capsule} active Doxycycline Monohydrate 100 MG eCW1 ([facility]) Doxycycline Monohydrate 100 MG Oral Capsule Doxycycline [place] hydrate 100 MG 04/12/2020 12:00:00 AM EST 1.0 {capsule} suspend ed Doxycycline Monohydrate 100 MG eCW1 ([facility]) Mometasone Furoate 50 MCG/ACT Mometasone Furoate 50 MCG/ACT 04/12/2020 12:00:00 AM EST 2.0 {sprays_in_each_nostril} active Mometasone Furoate 50 MCG/ACT eCW1 ([facility]) Doxycycline Monohydrate 100 MG Oral Capsule Doxycycline [place] hydrate 100 MG 04/12/2020 12:00:00 AM EST 1.0 {capsule} active Doxycycline Monohydrate 100 MG eCW1 ([facility]) Doxycycline Monohydrate 100 MG Oral Capsule Doxycycline [place] hydrate 100 MG 04/12/2020 12:00:00 AM EST 1.0 {capsule} active Doxycycline Monohydrate 100 MG eCW1 ([facility]) 1,000 mg 04/12/2020 12:00:00 AM EST suppository 30 INSERT ONE SUPPOSITORY RECTALLY AT BEDTIME INSERT ONE SUPPOSITORY RECTALLY AT BEDTIME SOLD: 04/12/2020 [facility] mesalamine 1000 MG Rectal Suppository Mesalamine 1000 MG Mes alamine 1000 MG 04/12/2020 12:00:00 AM EST 1.0 {suppository_at_bedtime} active Mesalamine 1000 MG eCW1 ([facility]) 4 mg/2 mL 04/10/2020 12:00:00 AM EST solution 120 INJECT 1 VIAL TWO TIMES A DAY AT LEAST 8 HOURS APART DIRECTED INJECT 1 VIAL TWO TIMES A DAY AT LEAST 8 HOURS APART DIRECTED SOLD: 05/15/2020 [facility] 4 mg/2 mL 04/10/2020 12:00:00 AM EST solution 120 INJECT 1 VIAL TWO TIMES A DAY AT LEAST 8 HOURS APART DIRECTED INJECT 1 VIAL TWO TIMES A DAY AT LEAST 8 HOURS APART DIRECTED SOLD: 04/10/2020 [facility] 33 gauge 03/27/2020 12:00:00 AM EST misc 100 USE 1 LANCET FOUR TIMES A DAY NEEDED USE 1 LANCET FOUR TIMES A DAY NEEDED SOLD: 04/19/2020 [facility] 33 gauge 03/27/2020 12:00:00 AM EST misc 100 USE 1 LANCET FOUR TIMES A DAY NEEDED USE 1 LANCET FOUR TIMES A DAY NEEDED SOLD: 05/12/2020 [facility] 33 gauge 03/27/2020 12:00:00 AM EST misc 100 USE 1 LANCET FOUR TIMES A DAY NEEDED USE 1 LANCET FOUR TIMES A DAY NEEDED SOLD: 03/27/2020 [facility] 100,000 unit/gram 03/25/2020 12:00:00 AM EST powder 30 APPLY TO AFFECTED AREA(S) AROUND STOMA TWO TIMES A DAY UNTIL HEALED APPLY TO AFFECTED AREA(S) AROUND STOMA TWO TIMES A DAY UNTIL HEALED SOLD: 04/17/2020 [facility] 100,000 unit/gram 03/25/2020 12:00:00 AM EST powder 30 APPLY TO AFFECTED AREA(S) AROUND STOMA TWO TIMES A DAY UNTIL HEALED APPLY TO AFFECTED AREA(S) AROUND STOMA TWO TIMES A DAY UNTIL HEALED SOLD: 03/26/2020 [facility] 100,000 unit/gram 03/25/2020 12:00:00 AM EST powder 30 APPLY TO AFFECTED AREA(S) AROUND STOMA TWO TIMES A DAY UNTIL HEALED APPLY TO AFFECTED AREA(S) AROUND STOMA TWO TIMES A DAY UNTIL HEALED SOLD: 04/06/2020 [facility] ELECTROLYTES/DEXTROSE 03/21/2020 12:00:00 AM EST solution 3 0000 DRINK 330ML BY MOUTH THREE TIMES A DAY DRINK 330ML BY MOUTH THREE TIMES A DAY SOLD: 04/18/2020 [facility] Sucralfate 1000 MG Oral Tablet Sucralfate 1 GM Oral Ta blet Sucralfate 1 GM Oral Tablet 03/21/2020 12:00:00 AM EST 1 active sucralfate 1000 MG Oral Tablet JUAN DANIEL (Jhony Lowery MD [facility]) Nystatin 15 MG Oral Tablet Nystatin 15 MG Oral Tablet 2019 12:00:00 AM EST 1 active Nystatin JUAN DANIEL (Jhony Lowery MD [facility]) Ondansetron 2 MG/ML Injectable Solution Ondansetron HCl 40 MG/20ML Injection Solution Ondansetron HCl 40 MG/20ML Injection Solution 03/21/20 12:00:00 AM EST 1 active ondansetron 2 MG/ ML Injectable Solution JUAN DANIEL (Jhony Lowery MD [facility]) ammonium lactate 120 MG/ML Topical Cream Ammonium Lact ate 12% External Cream Ammonium Lactate 12% External Cream 03/21/2020 12:00:00 AM EST active ammonium lactate 120 MG/ML Topical Cream JUAN DANIEL (Jhony Lowery MD [facility]) Lactulose 667 MG/ML Oral Solution Lactulose 10 GM/15ML Oral Solution Lactulose 10 GM/15ML Oral Solution 03/21/2020 12:00:00 AM EST 1 active lactulose 667 MG/ML Oral Solution JUAN DANIEL (Jhony Lowery MD [facility]) Amitriptyline Hydrochloride 50 MG Oral T ablet Amitriptyline HCl 50 MG Oral Tablet Amitriptyline HCl 50 MG Oral Tablet 03/21/2020 12:00:00 AM EST 1 active amitriptyline hydrochloride 50 M G Oral Tablet JUAN DANIEL (Jhony Lowery MD [facility]) Amitriptyline Hydrochloride 50 MG Oral T ablet Amitriptyline HCl 50 MG Oral Tablet Amitriptyline HCl 50 MG Oral Tablet 03/21/2020 12:00:00 AM EST 1 active amitriptyline hydrochloride 50 M G Oral Tablet JUAN DANIEL (Jhony Lowery MD [facility]) insulin detemir 100 UNT/ML Injectable So lution Insulin Detemir 100 UNIT/ML Subcutaneous Solution Insulin Detemir 100 UNIT/ML Subcutaneous Solution 03/21/2020 12:00:00 AM EST 1 active insulin detemir 100 UNT/ML Injectable Solution JUAN DANIEL (Jhony Lowery MD [facility]) Simethicone 80 MG Oral Tablet Simethicone 80 MG Oral Tablet 03/21/2020 12:00:00 AM EST [address] (Jhony Lowery MD [facility]) Albuterol 0.83 MG/ML Inhalant Solution A lbuterol Sulfate (2.5 MG/3ML) 0.083% Inhalation Nebulization solution Albuterol Sulfate (2.5 MG/3ML) 0.083% Inhalation Nebulization solution 03/21/2020 12:00:00 AM EST 1 active albuterol 0.83 MG/ML Inhalation Solution JUAN DANIEL (Brad Lowery MD [facility]) Cholecalciferol 1000 UNT Oral Capsule Ch olecalciferol 25 MCG (1000 UT) Oral Capsule Cholecalciferol 25 MCG (1000 UT) Oral Capsule 03/21/20 12:00:00 AM EST 1 active cholecalciferol 0 .025 MG Oral Capsule BLUE RAPIDS (Jhony Lowery MD [facility]) Metoclopramide 10 MG Oral Tablet Metoclopramide HCl 10 MG Oral Tablet Metoclopramide HCl 10 MG Oral Tablet 03/21/2020 12:00:00 AM EST 1 active metoclopramide 10 MG Oral Tablet JUAN DANIEL (Jhony Lowery MD [facility]) Triamcinolone Acetonide 1 MG/ML Topical Cream Triamcinolone Acetonide 0.1% External Cream Triamcinolone Acetonide 0.1% External Cream 03/21/2020 12:00:00 AM EST 1 active triamcinolone jennifer tonide 1 MG/ML Topical Cream BLUE RAPIDS (Jhony Lowery MD [facility]) Mupirocin 0.02 MG/MG Topical Ointment Mupirocin 2% Ext ernal Ointment Mupirocin 2% External Ointment 03/21/2020 12:00:00 AM EST 1 active mupirocin 0.02 MG/MG Topical Ointment JUAN DANIEL (Jhony Lowery MD [facility]) doxycycline hyclate 100 MG Oral Tablet Doxycycline Hyc late 100 MG Doxycycline Hyclate 100 MG 03/20/2020 12:00:00 AM EST 1.0 {tablet} suspended Doxycycline Hyclate 100 MG eCW1 ([facility]) doxycycline hyclate 100 MG Oral Tablet Doxycycline Hyc late 100 MG Doxycycline Hyclate 100 MG 03/20/2020 12:00:00 AM EST 1.0 {tablet} suspended Doxycycline Hyclate 100 MG eCW1 ([facility]) doxycycline hyclate 100 MG Oral Tablet Doxycycline Hyc late 100 MG Doxycycline Hyclate 100 MG 03/20/2020 12:00:00 AM EST 1.0 {tablet} suspended Doxycycline Hyclate 100 MG eCW1 ([facility]) doxycycline hyclate 100 MG Oral Tablet Doxycycline Hyc late 100 MG Doxycycline Hyclate 100 MG 03/20/2020 12:00:00 AM EST 1.0 {tablet} suspended Doxycycline Hyclate 100 MG eCW1 ([facility]) doxycycline hyclate 100 MG Oral Tablet Doxycycline Hyc late 100 MG Doxycycline Hyclate 100 MG 03/20/2020 12:00:00 AM EST 1.0 {tablet} suspended Doxycycline Hyclate 100 MG eCW1 ([facility]) doxycycline hyclate 100 MG Oral Tablet Doxycycline Hyc late 100 MG Doxycycline Hyclate 100 MG 03/20/2020 12:00:00 AM EST 1.0 {tablet} active Doxycycline Hyclate 100 MG eCW1 ([facility]) doxycycline hyclate 100 MG Oral Tablet Doxycycline Hyc late 100 MG Doxycycline Hyclate 100 MG 03/20/2020 12:00:00 AM EST 1.0 {tablet} active Doxycycline Hyclate 100 MG eCW1 ([facility]) doxycycline hyclate 100 MG Oral Tablet Doxycycline Hyc late 100 MG Doxycycline Hyclate 100 MG 03/20/2020 12:00:00 AM EST 1.0 {tablet} suspended Doxycycline Hyclate 100 MG eCW1 ([facility]) doxycycline hyclate 100 MG Oral Tablet Doxycycline Hyc late 100 MG Doxycycline Hyclate 100 MG 03/20/2020 12:00:00 AM EST 1.0 {tablet} suspended Doxycycline Hyclate 100 MG eCW1 ([facility]) doxycycline hyclate 100 MG Oral Tablet Doxycycline Hyc late 100 MG Doxycycline Hyclate 100 MG 03/20/2020 12:00:00 AM EST 1.0 {tablet} suspended Doxycycline Hyclate 100 MG eCW1 ([facility]) doxycycline hyclate 100 MG Oral Tablet Doxycycline Hyc late 100 MG Doxycycline Hyclate 100 MG 03/20/2020 12:00:00 AM EST 1.0 {tablet} active Doxycycline Hyclate 100 MG eCW1 ([facility]) doxycycline hyclate 100 MG Oral Tablet Doxycycline Hyc late 100 MG Doxycycline Hyclate 100 MG 03/20/2020 12:00:00 AM EST 1.0 {tablet} active Doxycycline Hyclate 100 MG eCW1 ([facility]) doxycycline hyclate 100 MG Oral Tablet Doxycycline Hyc late 100 MG Doxycycline Hyclate 100 MG 03/20/2020 12:00:00 AM EST 1.0 {tablet} active Doxycycline Hyclate 100 MG eCW1 ([facility]) doxycycline hyclate 100 MG Oral Tablet Doxycycline Hyc late 100 MG Doxycycline Hyclate 100 MG 03/20/2020 12:00:00 AM EST 1.0 {tablet} suspended Doxycycline Hyclate 100 MG eCW1 ([facility]) doxycycline hyclate 100 MG Oral Tablet DOXYCYCLINE HYCLATE 1 05/21/2019 12:00:00 AM EST tablet 14 TAKE ONE TABLET BY MOUTH TWI CE A DAY FOR 7 DAYS TAKE ONE TABLET BY MOUTH TWICE A DAY FOR 7 DAYS SOLD: 03/20/2020 [facility] doxycycline hyclate 100 MG Oral Tablet Doxycycline Hyc late 100 MG Doxycycline Hyclate 100 MG 03/20/2020 12:00:00 AM EST 1.0 {tablet} active Doxycycline Hyclate 100 MG eCW1 ([facility]) doxycycline hyclate 100 MG Oral Tablet Doxycycline Hyc late 100 MG Doxycycline Hyclate 100 MG 03/20/2020 12:00:00 AM EST 1.0 {tablet} suspended Doxycycline Hyclate 100 MG eCW1 ([facility]) doxycycline hyclate 100 MG Oral Tablet Doxycycline Hyc late 100 MG Doxycycline Hyclate 100 MG 03/20/2020 12:00:00 AM EST 1.0 {tablet} suspended Doxycycline Hyclate 100 MG eCW1 ([facility]) doxycycline hyclate 100 MG Oral Tablet Doxycycline Hyc late 100 MG Doxycycline Hyclate 100 MG 03/20/2020 12:00:00 AM EST 1.0 {tablet} active Doxycycline Hyclate 100 MG eCW1 ([facility]) doxycycline hyclate 100 MG Oral Tablet Doxycycline Hyc late 100 MG Doxycycline Hyclate 100 MG 03/20/2020 12:00:00 AM EST 1.0 {tablet} suspended Doxycycline Hyclate 100 MG eCW1 ([facility]) doxycycline hyclate 100 MG Oral Tablet Doxycycline Hyc late 100 MG Doxycycline Hyclate 100 MG 03/20/2020 12:00:00 AM EST 1.0 {tablet} suspended Doxycycline Hyclate 100 MG eCW1 ([facility]) doxycycline hyclate 100 MG Oral Tablet Doxycycline Hyc late 100 MG Doxycycline Hyclate 100 MG 03/20/2020 12:00:00 AM EST 1.0 {tablet} suspended Doxycycline Hyclate 100 MG eCW1 ([facility]) doxycycline hyclate 100 MG Oral Tablet Doxycycline Hyc late 100 MG Doxycycline Hyclate 100 MG 03/20/2020 12:00:00 AM EST 1.0 {tablet} suspended Doxycycline Hyclate 100 MG eCW1 ([facility]) doxycycline hyclate 100 MG Oral Tablet Doxycycline Hyc late 100 MG Doxycycline Hyclate 100 MG 03/20/2020 12:00:00 AM EST 1.0 {tablet} active Doxycycline Hyclate 100 MG eCW1 ([facility]) doxycycline hyclate 100 MG Oral Tablet Doxycycline Hyc late 100 MG Doxycycline Hyclate 100 MG 03/20/2020 12:00:00 AM EST 1.0 {tablet} active Doxycycline Hyclate 100 MG eCW1 ([facility]) doxycycline hyclate 100 MG Oral Tablet Doxycycline Hyc late 100 MG Doxycycline Hyclate 100 MG 03/20/2020 12:00:00 AM EST 1.0 {tablet} suspended Doxycycline Hyclate 100 MG eCW1 ([facility]) doxycycline hyclate 100 MG Oral Tablet Doxycycline Hyc late 100 MG Doxycycline Hyclate 100 MG 03/20/2020 12:00:00 AM EST 1.0 {tablet} suspended Doxycycline Hyclate 100 MG eCW1 ([facility]) doxycycline hyclate 100 MG Oral Tablet Doxycycline Hyc late 100 MG Doxycycline Hyclate 100 MG 03/20/2020 12:00:00 AM EST 1.0 {tablet} suspended Doxycycline Hyclate 100 MG eCW1 ([facility]) doxycycline hyclate 100 MG Oral Tablet Doxycycline Hyc late 100 MG Doxycycline Hyclate 100 MG 03/20/2020 12:00:00 AM EST 1.0 {tablet} suspended Doxycycline Hyclate 100 MG eCW1 ([facility]) doxycycline hyclate 100 MG Oral Tablet Doxycycline Hyc late 100 MG Doxycycline Hyclate 100 MG 03/20/2020 12:00:00 AM EST 1.0 {tablet} suspended Doxycycline Hyclate 100 MG eCW1 ([facility]) 3 ML liraglutide 6 MG/ML Pen Injector [Victoza] Victoz a 18 MG/3ML Victoza 18 MG/3ML 03/17/2020 12:00:00 AM EST active Victoza 18 MG/3ML eCW1 ([facility]) Sodium Chloride 0.9 % UNK 03/17/2020 12:00:00 AM EST active Sodium Chloride 0.9 % eCW1 ([facility]) 3 ML liraglutide 6 MG/ML Pen Injector [Victoza] Victoz a 18 MG/3ML Victoza 18 MG/3ML 03/17/2020 12:00:00 AM EST active Victoza 18 MG/3ML eCW1 ([facility]) Sodium Chloride 0.9 % UNK 03/17/2020 12:00:00 AM EST active Sodium Chloride 0.9 % eCW1 ([facility]) Sodium Chloride 0.9 % UNK 03/17/2020 12:00:00 AM EST active Sodium Chloride 0.9 % eCW1 ([facility]) Sodium Chloride 0.9 % UNK 03/17/2020 12:00:00 AM EST active Sodium Chloride 0.9 % eCW1 ([facility]) ciclopirox 80 MG/ML Topical Solution Ciclopirox 8 % Ciclopir ox 8 % 03/17/2020 12:00:00 AM EST active Ciclopir ox 8 % eCW1 ([facility]) 3 ML liraglutide 6 MG/ML Pen Injector [Victoza] Victoz a 18 MG/3ML Victoza 18 MG/3ML 03/17/2020 12:00:00 AM EST active Victoza 18 MG/3ML eCW1 ([facility]) Sodium Chloride 0.9 % UNK 03/17/2020 12:00:00 AM EST active Sodium Chloride 0.9 % eCW1 ([facility]) 3 ML liraglutide 6 MG/ML Pen Injector [Victoza] Victoz a 18 MG/3ML Victoza 18 MG/3ML 03/17/2020 12:00:00 AM EST active Victoza 18 MG/3ML eCW1 ([facility]) ciclopirox 80 MG/ML Topical Solution Ciclopirox 8 % Ciclopir ox 8 % 03/17/2020 12:00:00 AM EST active Ciclopir ox 8 % eCW1 ([facility]) ciclopirox 80 MG/ML Topical Solution Ciclopirox 8 % Ciclopir ox 8 % 03/17/2020 12:00:00 AM EST active Ciclopir ox 8 % eCW1 ([facility]) 3 ML liraglutide 6 MG/ML Pen Injector [Victoza] Victoz a 18 MG/3ML Victoza 18 MG/3ML 03/17/2020 12:00:00 AM EST active Victoza 18 MG/3ML eCW1 ([facility]) Sodium Chloride 0.9 % UNK 03/17/2020 12:00:00 AM EST active Sodium Chloride 0.9 % eCW1 ([facility]) Sodium Chloride 0.9 % UNK 03/17/2020 12:00:00 AM EST active Sodium Chloride 0.9 % eCW1 ([facility]) ciclopirox 80 MG/ML Topical Solution Ciclopirox 8 % Ciclopir ox 8 % 03/17/2020 12:00:00 AM EST active Ciclopir ox 8 % eCW1 ([facility]) ciclopirox 80 MG/ML Topical Solution Ciclopirox 8 % Ciclopir ox 8 % 03/17/2020 12:00:00 AM EST active Ciclopir ox 8 % eCW1 ([facility]) 3 ML liraglutide 6 MG/ML Pen Injector [Victoza] Victoz a 18 MG/3ML Victoza 18 MG/3ML 03/17/2020 12:00:00 AM EST active Victoza 18 MG/3ML eCW1 ([facility]) 3 ML liraglutide 6 MG/ML Pen Injector [Victoza] Victoz a 18 MG/3ML Victoza 18 MG/3ML 03/17/2020 12:00:00 AM EST active Victoza 18 MG/3ML eCW1 ([facility]) 0.6 mg/0.1 mL (18 mg/3 mL) 03/17/2020 12:00:00 AM EST pen in jector 6 INJECT 0.6MG UNDER THE SKIN DAILY FOR 1 WEEK THEN INCREASE TO 1.2MG DAILY INJECT 0.6MG UNDER THE SKIN DAILY FOR 1 WEEK THEN INCREASE TO 1.2MG DAILY SOLD: 04/09/2020 [facility] ciclopirox 80 MG/ML Topical Solution Ciclopirox 8 % Ciclopir ox 8 % 03/17/2020 12:00:00 AM EST active Ciclopir ox 8 % eCW1 ([facility]) 0.6 mg/0.1 mL (18 mg/3 mL) 03/17/2020 12:00:00 AM EST pen in jector 6 INJECT 0.6MG UNDER THE SKIN DAILY FOR 1 WEEK THEN INCREASE TO 1.2MG DAILY INJECT 0.6MG UNDER THE SKIN DAILY FOR 1 WEEK THEN INCREASE TO 1.2MG DAILY SOLD: 03/17/2020 [facility] Sodium Chloride 0.9 % UNK 03/17/2020 12:00:00 AM EST active Sodium Chloride 0.9 % eCW1 ([facility]) ciclopirox 80 MG/ML Topical Solution Ciclopirox 8 % Ciclopir ox 8 % 03/17/2020 12:00:00 AM EST active Ciclopir ox 8 % eCW1 ([facility]) ciclopirox 80 MG/ML Topical Solution Ciclopirox 8 % Ciclopir ox 8 % 03/17/2020 12:00:00 AM EST active Ciclopir ox 8 % eCW1 ([facility]) 3 ML liraglutide 6 MG/ML Pen Injector [Victoza] Victoz a 18 MG/3ML Victoza 18 MG/3ML 03/17/2020 12:00:00 AM EST active Victoza 18 MG/3ML eCW1 ([facility]) 3 ML liraglutide 6 MG/ML Pen Injector [Victoza] Victoz a 18 MG/3ML Victoza 18 MG/3ML 03/17/2020 12:00:00 AM EST active Victoza 18 MG/3ML eCW1 ([facility]) ciclopirox 80 MG/ML Topical Solution Ciclopirox 8 % Ciclopir ox 8 % 03/17/2020 12:00:00 AM EST active Ciclopir ox 8 % eCW1 ([facility]) Sodium Chloride 0.9 % UNK 03/17/2020 12:00:00 AM EST active Sodium Chloride 0.9 % eCW1 ([facility]) Sodium Chloride 0.9 % UNK 03/17/2020 12:00:00 AM EST active Sodium Chloride 0.9 % eCW1 ([facility]) 3 ML liraglutide 6 MG/ML Pen Injector [Victoza] Victoz a 18 MG/3ML Victoza 18 MG/3ML 03/17/2020 12:00:00 AM EST active Victoza 18 MG/3ML eCW1 ([facility]) ciclopirox 80 MG/ML Topical Solution Ciclopirox 8 % Ciclopir ox 8 % 03/17/2020 12:00:00 AM EST active Ciclopir ox 8 % eCW1 ([facility]) ciclopirox 80 MG/ML Topical Solution Ciclopirox 8 % Ciclopir ox 8 % 03/17/2020 12:00:00 AM EST active Ciclopir ox 8 % eCW1 ([facility]) ciclopirox 80 MG/ML Topical Solution Ciclopirox 8 % Ciclopir ox 8 % 03/17/2020 12:00:00 AM EST active Ciclopir ox 8 % eCW1 ([facility]) Sodium Chloride 0.9 % UNK 03/17/2020 12:00:00 AM EST active Sodium Chloride 0.9 % eCW1 ([facility]) Sodium Chloride 0.9 % UNK 03/17/2020 12:00:00 AM EST active Sodium Chloride 0.9 % eCW1 ([facility]) ciclopirox 80 MG/ML Topical Solution Ciclopirox 8 % Ciclopir ox 8 % 03/17/2020 12:00:00 AM EST active Ciclopir ox 8 % eCW1 ([facility]) ciclopirox 80 MG/ML Topical Solution Ciclopirox 8 % Ciclopir ox 8 % 03/17/2020 12:00:00 AM EST active Ciclopir ox 8 % eCW1 ([facility]) 3 ML liraglutide 6 MG/ML Pen Injector [Victoza] Victoz a 18 MG/3ML Victoza 18 MG/3ML 03/17/2020 12:00:00 AM EST active Victoza 18 MG/3ML eCW1 ([facility]) 3 ML liraglutide 6 MG/ML Pen Injector [Victoza] Victoz a 18 MG/3ML Victoza 18 MG/3ML 03/17/2020 12:00:00 AM EST active Victoza 18 MG/3ML eCW1 ([facility]) 8 % 03/17/2020 12:00:00 AM EST solution 6 APPLY TO THE 5TH FINGERNAIL ONCE A DAY, CLEAN OFF WITH AN ALCOHOL PREP PAD ONCE A WEEK APPLY TO THE 5TH FINGERNAIL ONCE A DAY, CLEAN OFF WITH AN ALCOHOL PREP PAD ONCE A WEEK SOLD: 03/17/2020 [facility] ciclopirox 80 MG/ML Topical Solution Ciclopirox 8 % Ciclopir ox 8 % 03/17/2020 12:00:00 AM EST active Ciclopir ox 8 % eCW1 ([facility]) 3 ML liraglutide 6 MG/ML Pen Injector [Victoza] Victoz a 18 MG/3ML Victoza 18 MG/3ML 03/17/2020 12:00:00 AM EST active Victoza 18 MG/3ML eCW1 ([facility]) ciclopirox 80 MG/ML Topical Solution Ciclopirox 8 % Ciclopir ox 8 % 03/17/2020 12:00:00 AM EST active Ciclopir ox 8 % eCW1 ([facility]) ciclopirox 80 MG/ML Topical Solution Ciclopirox 8 % Ciclopir ox 8 % 03/17/2020 12:00:00 AM EST active Ciclopir ox 8 % eCW1 ([facility]) Sodium Chloride 0.9 % UNK 03/17/2020 12:00:00 AM EST active Sodium Chloride 0.9 % eCW1 ([facility]) 3 ML liraglutide 6 MG/ML Pen Injector [Victoza] Victoz a 18 MG/3ML Victoza 18 MG/3ML 03/17/2020 12:00:00 AM EST active Victoza 18 MG/3ML eCW1 ([facility]) 8 % 03/17/2020 12:00:00 AM EST solution 6 APPLY TO THE 5TH FINGERNAIL ONCE A DAY, CLEAN OFF WITH AN ALCOHOL PREP PAD ONCE A WEEK APPLY TO THE 5TH FINGERNAIL ONCE A DAY, CLEAN OFF WITH AN ALCOHOL PREP PAD ONCE A WEEK SOLD: 04/14/2020 [facility] Sodium Chloride 0.9 % UNK 03/17/2020 12:00:00 AM EST active Sodium Chloride 0.9 % eCW1 ([facility]) ciclopirox 80 MG/ML Topical Solution Ciclopirox 8 % Ciclopir ox 8 % 03/17/2020 12:00:00 AM EST active Ciclopir ox 8 % eCW1 ([facility]) 3 ML liraglutide 6 MG/ML Pen Injector [Victoza] Victoz a 18 MG/3ML Victoza 18 MG/3ML 03/17/2020 12:00:00 AM EST active Victoza 18 MG/3ML eCW1 ([facility]) 3 ML liraglutide 6 MG/ML Pen Injector [Victoza] Victoz a 18 MG/3ML Victoza 18 MG/3ML 03/17/2020 12:00:00 AM EST active Victoza 18 MG/3ML eCW1 ([facility]) Sodium Chloride 0.9 % UNK 03/17/2020 12:00:00 AM EST active Sodium Chloride 0.9 % eCW1 ([facility]) ciclopirox 80 MG/ML Topical Solution Ciclopirox 8 % Ciclopir ox 8 % 03/17/2020 12:00:00 AM EST active Ciclopir ox 8 % eCW1 ([facility]) Sodium Chloride 0.9 % UNK 03/17/2020 12:00:00 AM EST active Sodium Chloride 0.9 % eCW1 ([facility]) 3 ML liraglutide 6 MG/ML Pen Injector [Victoza] Victoz a 18 MG/3ML Victoza 18 MG/3ML 03/17/2020 12:00:00 AM EST active Victoza 18 MG/3ML eCW1 ([facility]) ciclopirox 80 MG/ML Topical Solution Ciclopirox 8 % Ciclopir ox 8 % 03/17/2020 12:00:00 AM EST active Ciclopir ox 8 % eCW1 ([facility]) Sodium Chloride 0.9 % UNK 03/17/2020 12:00:00 AM EST active Sodium Chloride 0.9 % eCW1 ([facility]) 3 ML liraglutide 6 MG/ML Pen Injector [Victoza] Victoz a 18 MG/3ML Victoza 18 MG/3ML 03/17/2020 12:00:00 AM EST active Victoza 18 MG/3ML eCW1 ([facility]) 3 ML liraglutide 6 MG/ML Pen Injector [Victoza] Victoz a 18 MG/3ML Victoza 18 MG/3ML 03/17/2020 12:00:00 AM EST active Victoza 18 MG/3ML eCW1 ([facility]) 3 ML liraglutide 6 MG/ML Pen Injector [Victoza] Victoz a 18 MG/3ML Victoza 18 MG/3ML 03/17/2020 12:00:00 AM EST active Victoza 18 MG/3ML eCW1 ([facility]) Sodium Chloride 0.9 % UNK 03/17/2020 12:00:00 AM EST active Sodium Chloride 0.9 % eCW1 ([facility]) ciclopirox 80 MG/ML Topical Solution Ciclopirox 8 % Ciclopir ox 8 % 03/17/2020 12:00:00 AM EST active Ciclopir ox 8 % eCW1 ([facility]) 3 ML liraglutide 6 MG/ML Pen Injector [Victoza] Victoz a 18 MG/3ML Victoza 18 MG/3ML 03/17/2020 12:00:00 AM EST active Victoza 18 MG/3ML eCW1 ([facility]) 3 ML liraglutide 6 MG/ML Pen Injector [Victoza] Victoz a 18 MG/3ML Victoza 18 MG/3ML 03/17/2020 12:00:00 AM EST active Victoza 18 MG/3ML eCW1 ([facility]) Sodium Chloride 0.9 % UNK 03/17/2020 12:00:00 AM EST active Sodium Chloride 0.9 % eCW1 ([facility]) ciclopirox 80 MG/ML Topical Solution Ciclopirox 8 % Ciclopir ox 8 % 03/17/2020 12:00:00 AM EST active Ciclopir ox 8 % eCW1 ([facility]) 3 ML liraglutide 6 MG/ML Pen Injector [Victoza] Victoz a 18 MG/3ML Victoza 18 MG/3ML 03/17/2020 12:00:00 AM EST active Victoza 18 MG/3ML eCW1 ([facility]) Sodium Chloride 0.9 % UNK 03/17/2020 12:00:00 AM EST active Sodium Chloride 0.9 % eCW1 ([facility]) 3 ML liraglutide 6 MG/ML Pen Injector [Victoza] Victoz a 18 MG/3ML Victoza 18 MG/3ML 03/17/2020 12:00:00 AM EST active Victoza 18 MG/3ML eCW1 ([facility]) 3 ML liraglutide 6 MG/ML Pen Injector [Victoza] Victoz a 18 MG/3ML Victoza 18 MG/3ML 03/17/2020 12:00:00 AM EST active Victoza 18 MG/3ML eCW1 ([facility]) 3 ML liraglutide 6 MG/ML Pen Injector [Victoza] Victoz a 18 MG/3ML Victoza 18 MG/3ML 03/17/2020 12:00:00 AM EST active Victoza 18 MG/3ML eCW1 ([facility]) ciclopirox 80 MG/ML Topical Solution Ciclopirox 8 % Ciclopir ox 8 % 03/17/2020 12:00:00 AM EST active Ciclopir ox 8 % eCW1 ([facility]) ciclopirox 80 MG/ML Topical Solution Ciclopirox 8 % Ciclopir ox 8 % 03/17/2020 12:00:00 AM EST active Ciclopir ox 8 % eCW1 ([facility]) Sodium Chloride 0.9 % UNK 03/17/2020 12:00:00 AM EST active Sodium Chloride 0.9 % eCW1 ([facility]) Sodium Chloride 0.9 % UNK 03/17/2020 12:00:00 AM EST active Sodium Chloride 0.9 % eCW1 ([facility]) Sodium Chloride 0.9 % UNK 03/17/2020 12:00:00 AM EST active Sodium Chloride 0.9 % eCW1 ([facility]) Sodium Chloride 0.9 % UNK 03/17/2020 12:00:00 AM EST active Sodium Chloride 0.9 % eCW1 ([facility]) 3 ML liraglutide 6 MG/ML Pen Injector [Victoza] Victoz a 18 MG/3ML Victoza 18 MG/3ML 03/17/2020 12:00:00 AM EST active Victoza 18 MG/3ML eCW1 ([facility]) 3 ML liraglutide 6 MG/ML Pen Injector [Victoza] Victoz a 18 MG/3ML Victoza 18 MG/3ML 03/17/2020 12:00:00 AM EST active Victoza 18 MG/3ML eCW1 ([facility]) ciclopirox 80 MG/ML Topical Solution Ciclopirox 8 % Ciclopir ox 8 % 03/17/2020 12:00:00 AM EST active Ciclopir ox 8 % eCW1 ([facility]) 3 ML liraglutide 6 MG/ML Pen Injector [Victoza] Victoz a 18 MG/3ML Victoza 18 MG/3ML 03/17/2020 12:00:00 AM EST active Victoza 18 MG/3ML eCW1 ([facility]) Sodium Chloride 0.9 % UNK 03/17/2020 12:00:00 AM EST active Sodium Chloride 0.9 % eCW1 ([facility]) ciclopirox 80 MG/ML Topical Solution Ciclopirox 8 % Ciclopir ox 8 % 03/17/2020 12:00:00 AM EST active Ciclopir ox 8 % eCW1 ([facility]) ciclopirox 80 MG/ML Topical Solution Ciclopirox 8 % Ciclopir ox 8 % 03/17/2020 12:00:00 AM EST active Ciclopir ox 8 % eCW1 ([facility]) 3 ML liraglutide 6 MG/ML Pen Injector [Victoza] Victoz a 18 MG/3ML Victoza 18 MG/3ML 03/17/2020 12:00:00 AM EST active Victoza 18 MG/3ML eCW1 ([facility]) Sodium Chloride 0.9 % UNK 03/17/2020 12:00:00 AM EST active Sodium Chloride 0.9 % eCW1 ([facility]) Sodium Chloride 0.9 % UNK 03/17/2020 12:00:00 AM EST active Sodium Chloride 0.9 % eCW1 ([facility]) ciclopirox 80 MG/ML Topical Solution Ciclopirox 8 % Ciclopir ox 8 % 03/17/2020 12:00:00 AM EST active Ciclopir ox 8 % eCW1 ([facility]) ciclopirox 80 MG/ML Topical Solution Ciclopirox 8 % Ciclopir ox 8 % 03/17/2020 12:00:00 AM EST active Ciclopir ox 8 % eCW1 ([facility]) Sodium Chloride 0.9 % UNK 03/17/2020 12:00:00 AM EST active Sodium Chloride 0.9 % eCW1 ([facility]) 3 ML liraglutide 6 MG/ML Pen Injector [Victoza] Victoz a 18 MG/3ML Victoza 18 MG/3ML 03/17/2020 12:00:00 AM EST active Victoza 18 MG/3ML eCW1 ([facility]) Sodium Chloride 0.9 % UNK 03/17/2020 12:00:00 AM EST active Sodium Chloride 0.9 % eCW1 ([facility]) Sodium Chloride 0.9 % UNK 03/17/2020 12:00:00 AM EST active Sodium Chloride 0.9 % eCW1 ([facility]) ciclopirox 80 MG/ML Topical Solution Ciclopirox 8 % Ciclopir ox 8 % 03/17/2020 12:00:00 AM EST active Ciclopir ox 8 % eCW1 ([facility]) 3 ML liraglutide 6 MG/ML Pen Injector [Victoza] Victoz a 18 MG/3ML Victoza 18 MG/3ML 03/17/2020 12:00:00 AM EST active Victoza 18 MG/3ML eCW1 ([facility]) Sodium Chloride 0.9 % UNK 03/17/2020 12:00:00 AM EST active Sodium Chloride 0.9 % eCW1 ([facility]) ciclopirox 80 MG/ML Topical Solution Ciclopirox 8 % Ciclopir ox 8 % 03/17/2020 12:00:00 AM EST active Ciclopir ox 8 % eCW1 ([facility]) ciclopirox 80 MG/ML Topical Solution Ciclopirox 8 % Ciclopir ox 8 % 03/17/2020 12:00:00 AM EST active Ciclopir ox 8 % eCW1 ([facility]) Sodium Chloride 0.9 % UNK 03/17/2020 12:00:00 AM EST active Sodium Chloride 0.9 % eCW1 ([facility]) 31 gauge x 5/16" 03/03/2020 12:00:00 AM EST needle 30 USE 1 NEEDLE UNDER THE SKIN ONCE A DAY USE 1 NEEDLE UNDER THE SKIN ONCE A DAY SOLD: 05/26/2020 [facility] 1 gram 03/03/2020 12:00:00 AM EST tablet 60 TAKE ONE TABLET BY MOUTH TWICE A DAY WITH MEALS TAKE ONE TABLET BY MOUTH TWICE A DAY WITH MEALS SOLD: 04/28/2020 [facility] 31 gauge x 5/16" 03/03/2020 12:00:00 AM EST needle 30 USE 1 NEEDLE UNDER THE SKIN ONCE A DAY USE 1 NEEDLE UNDER THE SKIN ONCE A DAY SOLD: 04/28/2020 [facility] 1 gram 03/03/2020 12:00:00 AM EST tablet 60 TAKE ONE TABLET BY MOUTH TWICE A DAY WITH MEALS TAKE ONE TABLET BY MOUTH TWICE A DAY WITH MEALS SOLD: 03/31/2020 [facility] 31 gauge x 5/16" 03/03/2020 12:00:00 AM EST needle 30 USE 1 NEEDLE UNDER THE SKIN ONCE A DAY USE 1 NEEDLE UNDER THE SKIN ONCE A DAY SOLD: 03/31/2020 [facility] 1 gram 03/03/2020 12:00:00 AM EST tablet 60 TAKE ONE TABLET BY MOUTH TWICE A DAY WITH MEALS TAKE ONE TABLET BY MOUTH TWICE A DAY WITH MEALS SOLD: 05/26/2020 [facility] 31 gauge x 5/16" 03/03/2020 12:00:00 AM EST needle 30 USE 1 NEEDLE UNDER THE SKIN ONCE A DAY USE 1 NEEDLE UNDER THE SKIN ONCE A DAY SOLD: 03/03/2020 [facility] 1 gram 03/03/2020 12:00:00 AM EST tablet 60 TAKE ONE TABLET BY MOUTH TWICE A DAY WITH MEALS TAKE ONE TABLET BY MOUTH TWICE A DAY WITH MEALS SOLD: 03/03/2020 [facility] 25 mcg (1,000 unit) 02/25/2020 12:00:00 AM EST tablet 30 TAKE 1 TABLET BY MOUTH EVERY DAY TAKE 1 TABLET BY MOUTH EVERY DAY SOLD: 05/19/2020 [facility] 25 mcg (1,000 unit) 02/25/2020 12:00:00 AM EST tablet 30 TAKE 1 TABLET BY MOUTH EVERY DAY TAKE 1 TABLET BY MOUTH EVERY DAY SOLD: 04/21/2020 [facility] 25 mcg (1,000 unit) 02/25/2020 12:00:00 AM EST tablet 30 TAKE 1 TABLET BY MOUTH EVERY DAY TAKE 1 TABLET BY MOUTH EVERY DAY SOLD: 02/25/2020 [facility] 25 mcg (1,000 unit) 02/25/2020 12:00:00 AM EST tablet 30 TAKE 1 TABLET BY MOUTH EVERY DAY TAKE 1 TABLET BY MOUTH EVERY DAY SOLD: 03/24/2020 [facility] mesalamine 1000 MG Rectal Suppository Mesalamine 02/17/2020 12:00:00 AM EST RECTAL active MEDENT ([facility], ) 50 mg 02/17/2020 12:00:00 AM EST tablet 120 TAKE 1 TABLET BY MOUTH IN THE MORNING AND 3 TABLETS AT NIGHT TAKE 1 TABLET BY MOUTH IN THE MORNING AN D 3 TABLETS AT NIGHT SOLD: 03/16/2020 [facility] 10 mg 02/16/2020 12:00:00 AM EST capsule 120 TAKE ONE CAPSULE BY MOUTH FOUR TIMES A DAY TAKE ONE CAPSULE BY MOUTH FOUR TIMES A DAY SOLD: 05/10/2020 [facility] 10 mg 02/16/2020 12:00:00 AM EST capsule 120 TAKE ONE CAPSULE BY MOUTH FOUR TIMES A DAY TAKE ONE CAPSULE BY MOUTH FOUR TIMES A DAY SOLD: 04/12/2020 [facility] 10 mg 02/16/2020 12:00:00 AM EST capsule 120 TAKE ONE CAPSULE BY MOUTH FOUR TIMES A DAY TAKE ONE CAPSULE BY MOUTH FOUR TIMES A DAY SOLD: 03/15/2020 [facility] 10 mg 02/10/2020 12:00:00 AM EDT tablet 90 TAKE ONE TABLET BY MOUTH THREE TIMES A DAY NEEDED TAKE ONE TABLET BY MOUTH THREE TIMES A DAY NEEDED S OLD: 02/10/2020 [facility] 10 mg 02/10/2020 12:00:00 AM EDT tablet 90 TAKE ONE TABLET BY MOUTH THREE TIMES A DAY NEEDED TAKE ONE TABLET BY MOUTH THREE TIMES A DAY NEEDED S OLD: 03/10/2020 [facility] 10 mg 02/10/2020 12:00:00 AM EDT tablet 90 TAKE ONE TABLET BY MOUTH THREE TIMES A DAY NEEDED TAKE ONE TABLET BY MOUTH THREE TIMES A DAY NEEDED S OLD: 04/06/2020 [facility] 0.01 % (0.1 mg/gram) 02/04/2020 12:00:00 AM EDT cream 42 INSERT 1 GRAM VAGINALLY EVERY 72 HOURS INSERT 1 GRAM VAGINALLY EVERY 72 HOURS SOLD: 0 [facility] 0.01 % (0.1 mg/gram) 02/04/2020 12:00:00 AM EDT cream 42 INSERT 1 GRAM VAGINALLY EVERY 72 HOURS INSERT 1 GRAM VAGINALLY EVERY 72 HOURS SOLD: 0 [facility] Doxycycline Monohydrate 100 MG Oral Tablet Doxycycline Monoh ydrate 100 MG 01/24/2020 12:00:00 AM EDT 1.0 {tablet} suspende d Doxycycline Monohydrate 100 MG eCW1 ([facility]) Doxycycline Monohydrate 100 MG Oral Tablet Doxycycline Monoh ydrate 100 MG 01/24/2020 12:00:00 AM EDT 1.0 {tablet} suspende d Doxycycline Monohydrate 100 MG eCW1 ([facility]) 100 mg 01/24/2020 12:00:00 AM EDT tablet 10 TAKE ONE TABLET BY MOUTH TWICE A DAY FOR 5 DAYS TAKE ONE TABLET BY MOUTH TWICE A DAY FOR 5 DAYS SOLD: 01/24/2020 [facility] Doxycycline Monohydrate 100 MG Oral Tablet Doxycycline Monoh ydrate 100 MG 01/24/2020 12:00:00 AM EDT 1.0 {tablet} suspende d Doxycycline Monohydrate 100 MG eCW1 ([facility]) Doxycycline Monohydrate 100 MG Oral Tablet Doxycycline Monoh ydrate 100 MG 01/24/2020 12:00:00 AM EDT 1.0 {tablet} active Doxycycline Monohydrate 100 MG eCW1 ([facility]) Doxycycline Monohydrate 100 MG Oral Tablet Doxycycline Monoh ydrate 100 MG 01/24/2020 12:00:00 AM EDT 1.0 {tablet} suspende d Doxycycline Monohydrate 100 MG eCW1 ([facility]) Doxycycline Monohydrate 100 MG Oral Tablet Doxycycline Monoh ydrate 100 MG 01/24/2020 12:00:00 AM EDT 1.0 {tablet} suspende d Doxycycline Monohydrate 100 MG eCW1 ([facility]) Doxycycline Monohydrate 100 MG Oral Tablet Doxycycline Monoh ydrate 100 MG 01/24/2020 12:00:00 AM EDT 1.0 {tablet} active Doxycycline Monohydrate 100 MG eCW1 ([facility]) Doxycycline Monohydrate 100 MG Oral Tablet Doxycycline Monoh ydrate 100 MG 01/24/2020 12:00:00 AM EDT 1.0 {tablet} active Doxycycline Monohydrate 100 MG eCW1 ([facility]) Doxycycline Monohydrate 100 MG Oral Tablet Doxycycline Monoh ydrate 100 MG 01/24/2020 12:00:00 AM EDT 1.0 {tablet} suspende d Doxycycline Monohydrate 100 MG eCW1 ([facility]) Doxycycline Monohydrate 100 MG Oral Tablet Doxycycline Monoh ydrate 100 MG 01/24/2020 12:00:00 AM EDT 1.0 {tablet} suspende d Doxycycline Monohydrate 100 MG eCW1 ([facility]) Doxycycline Monohydrate 100 MG Oral Tablet Doxycycline Monoh ydrate 100 MG 01/24/2020 12:00:00 AM EDT 1.0 {tablet} active Doxycycline Monohydrate 100 MG eCW1 ([facility]) 4 mg/2 mL 01/19/2020 12:00:00 AM EDT solution 120 1 VIAL TWO TIMES A DAY AT LEAST 8 HOURS APART DIRECTED 1 VIAL TWO TIMES A DAY AT LEAST 8 HOURS APART DIRECTED SOLD: 01/19/2020 [facility] 4 mg/2 mL 01/19/2020 12:00:00 AM EDT solution 120 1 VIAL TWO TIMES A DAY AT LEAST 8 HOURS APART DIRECTED 1 VIAL TWO TIMES A DAY AT LEAST 8 HOURS APART DIRECTED SOLD: 03/14/2020 [facility] mesalamine 1000 MG Rectal Suppository Mesalamine 01/05/2020 12:00:00 AM EDT active MEDENT ([facility]) 4 mg 12/25/2019 12:00:00 AM EDT tablet 56 TAKE ONE TABLET BY MOUTH ALTERNATING WITH 2 TABLETS BY MOUTH EVERY 3 HOURS MAXIMUM DAILY DOSE = 8 TAKE ONE TABLET BY MOUTH ALTERNATING WITH 2 TABLETS BY MOUTH EVERY 3 HOURS MAXIMUM DAILY DOSE = 8 SOLD: 12/25/2019 [facility] 4 mg 12/19/2019 12:00:00 AM EDT tablet 56 TAKE 1 TAB.BY MOUTH ALTERNATING WITH 2TABS BY MOUTH EVERY 3 HOURS MAX DAILY DOSE = 8 TAKE 1 TAB.BY MOUTH ALTERNATING WITH 2TABS BY MOUTH EVERY 3 HOURS MAX DAILY DOSE = 8 SOLD: 12/19/2019 [facility] 50 mg 12/13/2019 12:00:00 AM EDT tablet 120 TAKE ONE TABLET BY MOUTH EVERY MORNING & 3 TABLETS AT NIGHT TAKE ONE TABLET BY MOUTH EVERY MORNING & 3 TABLETS AT NIGHT SOLD: 12/13/2019 [facility] 50 mg 12/13/2019 12:00:00 AM EDT tablet 120 TAKE ONE TABLET BY MOUTH EVERY MORNING & 3 TABLETS AT NIGHT TAKE ONE TABLET BY MOUTH EVERY MORNING & 3 TABLETS AT NIGHT SOLD: 01/10/2020 [facility] 4 mg 12/11/2019 12:00:00 AM EDT tablet 72 TAKE 1 TABLET BY MOUTH ALTERNATING WITH 2 TABLETS EVERY 3 HOURS NEEDED FOR PAIN MAX DAILY DOSE = 8 TABLETS TAKE 1 TABLET BY MOUTH ALTERNATING WITH 2 TABLETS EVERY 3 HOURS NEEDED FOR PAIN MAX DAILY DOSE = 8 TABLETS SOLD: 12/11/2019 [facility] 80 mg 12/09/2019 12:00:00 AM EDT tablet,chewable 180 TAKE TWO TABLETS BY MOUTH DIRECTED WITH MEALS TAKE TWO TABLETS BY MOUTH DIRECTED WITH MEALS SOLD: 03/01/2020 [facility] 80 mg 12/09/2019 12:00:00 AM EDT tablet,chewable 180 TAKE TWO TABLETS BY MOUTH DIRECTED WITH MEALS TAKE TWO TABLETS BY MOUTH DIRECTED WITH MEALS SOLD: 12/09/2019 [facility] 80 mg 12/09/2019 12:00:00 AM EDT tablet,chewable 180 TAKE TWO TABLETS BY MOUTH DIRECTED WITH MEALS TAKE TWO TABLETS BY MOUTH DIRECTED WITH MEALS SOLD: 03/29/2020 [facility] 80 mg 12/09/2019 12:00:00 AM EDT tablet,chewable 180 TAKE TWO TABLETS BY MOUTH DIRECTED WITH MEALS TAKE TWO TABLETS BY MOUTH DIRECTED WITH MEALS SOLD: 02/03/2020 [facility] 80 mg 12/09/2019 12:00:00 AM EDT tablet,chewable 180 TAKE TWO TABLETS BY MOUTH DIRECTED WITH MEALS TAKE TWO TABLETS BY MOUTH DIRECTED WITH MEALS SOLD: 01/06/2020 [facility] doxycycline hyclate 100 MG Oral Tablet DOXYCYCLINE HYCLATE 0 12/09/2019 12:00:00 AM EDT tablet 20 TAKE ONE TABLET BY MOUTH TWI CE A DAY FOR 10 DAYS TAKE ONE TABLET BY MOUTH TWICE A DAY FOR 10 DAYS SOLD: 12/09/2019 [facility] 4 mg 12/07/2019 12:00:00 AM EDT tablet 40 TAKE 1 TABLET BY MOUTH ALTERNATING WITH 2 TABLETS EVERY 3 HOURS MAXIMUM DAILY DOSE = 8 TABLETS TAKE 1 TABLET BY MOUTH ALTERNATING WITH 2 TABLETS EVERY 3 HOURS MAXIMUM DAILY DOSE = 8 TABLETS SOLD: 12/07/2019 [facility] 0.1 % 12/01/2019 12:00:00 AM EDT cream 30 APPLY SMALL AMOUNT AFFECTED AREA(S) TWO TIMES A DAY NEEDED APPLY SMALL AMOUNT AFFECTED AREA(S) TWO TIMES A DAY NEEDED SOLD: 12/01/2019 [facility] 4 mg 11/30/2019 12:00:00 AM EDT tablet 56 TAKE 1 TABLET ALTERNATING WITH 2 TABLETS EVERY 3 HOURS MAX DAILY DOSE = 8 TABLETS TAKE 1 TABLET ALTERNATING WITH 2 TABLETS EVERY 3 HOURS MAX DAILY DOSE = 8 TABLETS SOLD: 11/30/2019 [facility] 4 mg 11/24/2019 12:00:00 AM EDT tablet 56 TAKE 1 TABLET BY MOUTH ALTERNATING WITH 2 TABLETS EVERY 3 HOURS MAXIMUM DAILY DOSE = 8 TABLETS TAKE 1 TABLET BY MOUTH ALTERNATING WITH 2 TABLETS EVERY 3 HOURS MAXIMUM DAILY DOSE = 8 TABLETS SOLD: 11/24/2019 [facility] 4 mg/2 mL 11/24/2019 12:00:00 AM EDT solution 120 ONE INJECTION TWICE A DAY AT LEAST 8 HOURS APART DIRECTED ONE INJECTION TWICE A DAY AT LEAST 8 ANA RS APART DIRECTED SOLD: 12/24/2019 [facility] 4 mg/2 mL 11/24/2019 12:00:00 AM EDT solution 120 ONE INJECTION TWICE A DAY AT LEAST 8 HOURS APART DIRECTED ONE INJECTION TWICE A DAY AT LEAST 8 ANA RS APART DIRECTED SOLD: 11/24/2019 [facility] Cephalexin 500 MG Oral Capsule CEPHALEXIN 11/24/2019 12:00:00 AM EDT capsule 14 TAKE ONE CAPSULE BY MOUTH TWICE A DAY FOR 7 DAYS TAKE ONE CAPSULE BY MOUTH TWICE A DAY FOR 7 DAYS SOLD: 11/24/2019 [facility] 4 mg 11/15/2019 12:00:00 AM EDT tablet 84 TAKE 1 TABLET BY MOUTH ALTERNATING WITH 2 TABLETS EVERY 3 HOURS NEEDED MAXIMUM DAILY DOSE = 8 TABLETS TAKE 1 TABLET BY MOUTH ALTERNATING WITH 2 TABLETS EVERY 3 HOURS NEEDED MAXIMUM DAILY DOSE = 8 TABLETS SOLD: 11/15/2019 [facility] 4 mg 11/05/2019 12:00:00 AM EDT tablet 84 TAKE ONE TABLET ALERNATING WITH 2 TABLETS BY MOUTH EVERY 3 HOURS NEEDED MAXIMUM DAILY DOSE = EIGHT TABLETS TAKE ONE TABLET ALERNATING WITH 2 TABLETS BY MOUTH EVERY 3 HOURS NEEDED MAXIMUM DAILY DOSE = EIGHT TABLETS SOLD: 11/05/2019 [facility] 10 gram/15 mL 11/01/2019 12:00:00 AM EDT solution 1419 TAKE 15ML BY MOUTH THREE TIMES A DAY TAKE 15ML BY MOUTH THREE TIMES A DAY SOLD: 01/25/2020 [facility] 10 gram/15 mL 11/01/2019 12:00:00 AM EDT solution 1419 TAKE 15ML BY MOUTH THREE TIMES A DAY TAKE 15ML BY MOUTH THREE TIMES A DAY SOLD: 11/30/2019 [facility] 10 gram/15 mL 11/01/2019 12:00:00 AM EDT solution 1419 TAKE 15ML BY MOUTH THREE TIMES A DAY TAKE 15ML BY MOUTH THREE TIMES A DAY SOLD: 02/22/2020 [facility] 10 gram/15 mL 11/01/2019 12:00:00 AM EDT solution 1419 TAKE 15ML BY MOUTH THREE TIMES A DAY TAKE 15ML BY MOUTH THREE TIMES A DAY SOLD: 11/01/2019 [facility] 10 gram/15 mL 11/01/2019 12:00:00 AM EDT solution 1419 TAKE 15ML BY MOUTH THREE TIMES A DAY TAKE 15ML BY MOUTH THREE TIMES A DAY SOLD: 12/28/2019 [facility] Hydromorphone Hydrochloride 4 MG Oral Tablet Hydromorp nellie HCl 4 MG Hydromorphone HCl 4 MG 10/21/2019 12:00:00 AM EDT active Hydromorphone HCl 4 MG eCW1 ([facility]) Hydromorphone Hydrochloride 4 MG Oral Tablet Hydromorp nellie HCl 4 MG Hydromorphone HCl 4 MG 10/21/2019 12:00:00 AM EDT suspended Hydromorphone HCl 4 MG eCW1 ([facility]) Hydromorphone Hydrochloride 4 MG Oral Tablet Hydromorp nellie HCl 4 MG Hydromorphone HCl 4 MG 10/21/2019 12:00:00 AM EDT active Hydromorphone HCl 4 MG eCW1 ([facility]) Hydromorphone Hydrochloride 4 MG Oral Tablet Hydromorp nellie HCl 4 MG Hydromorphone HCl 4 MG 10/21/2019 12:00:00 AM EDT active Hydromorphone HCl 4 MG eCW1 ([facility]) Hydromorphone Hydrochloride 4 MG Oral Tablet Hydromorp nellie HCl 4 MG Hydromorphone HCl 4 MG 10/21/2019 12:00:00 AM EDT suspended Hydromorphone HCl 4 MG eCW1 ([facility]) Hydromorphone Hydrochloride 4 MG Oral Tablet Hydromorp nellie HCl 4 MG Hydromorphone HCl 4 MG 10/21/2019 12:00:00 AM EDT active Hydromorphone HCl 4 MG eCW1 ([facility]) Hydromorphone Hydrochloride 4 MG Oral Tablet Hydromorp nellei HCl 4 MG Hydromorphone HCl 4 MG 10/21/2019 12:00:00 AM EDT active Hydromorphone HCl 4 MG eCW1 ([facility]) Hydromorphone Hydrochloride 4 MG Oral Tablet Hydromorp nellie HCl 4 MG Hydromorphone HCl 4 MG 10/21/2019 12:00:00 AM EDT suspended Hydromorphone HCl 4 MG eCW1 ([facility]) 4 mg 10/21/2019 12:00:00 AM EDT tablet 84 TAKE 1 TABLET [4MG] BY MOUTH ALTERNATING WITH 2 TABLETS [8MG] EVERY 3 HOURS NEEDED MAXIMUM DAILY DOSE = 8 TABLETS TAKE 1 TABLET [4MG] BY MOUTH ALTERNATING WITH 2 TABLETS [8MG] EVERY 3 HOURS NEEDED MAXIMUM DAILY DOSE = 8 TABLETS SOLD: 10/21/2019 [facility] Hydromorphone Hydrochloride 4 MG Oral Tablet Hydromorp nellie HCl 4 MG Hydromorphone HCl 4 MG 10/21/2019 12:00:00 AM EDT active Hydromorphone HCl 4 MG eCW1 ([facility]) Hydromorphone Hydrochloride 4 MG Oral Tablet Hydromorp nellie HCl 4 MG Hydromorphone HCl 4 MG 10/21/2019 12:00:00 AM EDT active Hydromorphone HCl 4 MG eCW1 ([facility]) Hydromorphone Hydrochloride 4 MG Oral Tablet Hy[facility]romorp nellie HCl 4 MG Hydromorphone HCl 4 MG 10/21/2019 12:00:00 AM EDT active Hydromorphone HCl 4 MG eCW1 ([facility]) Hydromorphone Hydrochloride 4 MG Oral Tablet Hydromorp nellie HCl 4 MG Hydromorphone HCl 4 MG 10/21/2019 12:00:00 AM EDT active Hydromorphone HCl 4 MG eCW1 ([facility]) Hydromorphone Hydrochloride 4 MG Oral Tablet Hydromorp nellie HCl 4 MG Hydromorphone HCl 4 MG 10/21/2019 12:00:00 AM EDT suspended Hydromorphone HCl 4 MG eCW1 ([facility]) Hydromorphone Hydrochloride 4 MG Oral Tablet Hydromorp nellie HCl 4 MG Hydromorphone HCl 4 MG 10/21/2019 12:00:00 AM EDT suspended Hydromorphone HCl 4 MG eCW1 ([facility]) Hydromorphone Hydrochloride 4 MG Oral Tablet Hy[facility]romorp nellie HCl 4 MG Hydromorphone HCl 4 MG 10/21/2019 12:00:00 AM EDT active Hydromorphone HCl 4 MG eCW1 ([facility]) Hydromorphone Hydrochloride 4 MG Oral Tablet [facility]romorp nellie HCl 4 MG Hydromorphone HCl 4 MG 10/21/2019 12:00:00 AM EDT suspended Hydromorphone HCl 4 MG eCW1 ([facility]) Hydromorphone Hydrochloride 4 MG Oral Tablet [facility]romorp nellie HCl 4 MG Hydromorphone HCl 4 MG 10/21/2019 12:00:00 AM EDT suspended Hydromorphone HCl 4 MG eCW1 ([facility]) Hydromorphone Hydrochloride 4 MG Oral Tablet Hydromorp nellie HCl 4 MG Hydromorphone HCl 4 MG 10/21/2019 12:00:00 AM EDT active Hydromorphone HCl 4 MG eCW1 ([facility]) Hydromorphone Hydrochloride 4 MG Oral Tablet Hy[facility]romorp nellie HCl 4 MG Hydromorphone HCl 4 MG 10/21/2019 12:00:00 AM EDT suspended Hydromorphone HCl 4 MG eCW1 ([facility]) Hydromorphone Hydrochloride 4 MG Oral Tablet Hydromorp nellie HCl 4 MG Hydromorphone HCl 4 MG 10/21/2019 12:00:00 AM EDT active Hydromorphone HCl 4 MG eCW1 ([facility]) Hydromorphone Hydrochloride 4 MG Oral Tablet Hydromorp nellie HCl 4 MG Hydromorphone HCl 4 MG 10/21/2019 12:00:00 AM EDT suspended Hydromorphone HCl 4 MG eCW1 ([facility]) Hydromorphone Hydrochloride 4 MG Oral Tablet Hydromorp nellie HCl 4 MG Hydromorphone HCl 4 MG 10/21/2019 12:00:00 AM EDT active Hydromorphone HCl 4 MG eCW1 ([facility]) Estradiol 0.1 MG/ML Vaginal Cream Estradiol 0.1 MG/GM Estrad iol 0.1 MG/GM 10/15/2019 12:00:00 AM EDT active Estradiol 0.1 MG/GM eCW1 ([facility]) Estradiol 0.1 MG/ML Vaginal Cream Estradiol 0.1 MG/GM Estrad iol 0.1 MG/GM 10/15/2019 12:00:00 AM EDT active Estradiol 0.1 MG/GM eCW1 ([facility]) Estradiol 0.1 MG/ML Vaginal Cream Estradiol 0.1 MG/GM Estrad iol 0.1 MG/GM 10/15/2019 12:00:00 AM EDT active Estradiol 0.1 MG/GM eCW1 ([facility]) Estradiol 0.1 MG/ML Vaginal Cream Estradiol 0.1 MG/GM Estrad iol 0.1 MG/GM 10/15/2019 12:00:00 AM EDT active Estradiol 0.1 MG/GM eCW1 ([facility]) Estradiol 0.1 MG/ML Vaginal Cream Estradiol 0.1 MG/GM Estrad iol 0.1 MG/GM 10/15/2019 12:00:00 AM EDT active Estradiol 0.1 MG/GM eCW1 ([facility]) 12 % 10/15/2019 12:00:00 AM EDT cream 140 APPLY 1 APPLICATION TO FEET TWO TIMES A DAY EXTERNALLY APPLY 1 APPLICATION TO FEET TWO TIMES A DAY EXTERNALLY SOLD: 10/16/2019 [facility] Estradiol 0.1 MG/ML Vaginal Cream Estradiol 0.1 MG/GM Estrad iol 0.1 MG/GM 10/15/2019 12:00:00 AM EDT active Estradiol 0.1 MG/GM eCW1 ([facility]) Estradiol 0.1 MG/ML Vaginal Cream Estradiol 0.1 MG/GM Estrad iol 0.1 MG/GM 10/15/2019 12:00:00 AM EDT active Estradiol 0.1 MG/GM eCW1 ([facility]) Estradiol 0.1 MG/ML Vaginal Cream Estradiol 0.1 MG/GM Estrad iol 0.1 MG/GM 10/15/2019 12:00:00 AM EDT active Estradiol 0.1 MG/GM eCW1 ([facility]) Estradiol 0.1 MG/ML Vaginal Cream Estradiol 0.1 MG/GM Estrad iol 0.1 MG/GM 10/15/2019 12:00:00 AM EDT active Estradiol 0.1 MG/GM eCW1 ([facility]) 12 % 10/15/2019 12:00:00 AM EDT cream 140 APPLY 1 APPLICATION TO FEET TWO TIMES A DAY EXTERNALLY APPLY 1 APPLICATION TO FEET TWO TIMES A DAY EXTERNALLY SOLD: 11/12/2019 [facility] Estradiol 0.1 MG/ML Vaginal Cream Estradiol 0.1 MG/GM Estrad iol 0.1 MG/GM 10/15/2019 12:00:00 AM EDT active Estradiol 0.1 MG/GM eCW1 ([facility]) 12 % 10/15/2019 12:00:00 AM EDT cream 140 APPLY 1 APPLICATION TO FEET TWO TIMES A DAY EXTERNALLY APPLY 1 APPLICATION TO FEET TWO TIMES A DAY EXTERNALLY SOLD: 02/06/2020 [facility] Estradiol 0.1 MG/ML Vaginal Cream Estradiol 0.1 MG/GM Estrad iol 0.1 MG/GM 10/15/2019 12:00:00 AM EDT active Estradiol 0.1 MG/GM eCW1 ([facility]) Estradiol 0.1 MG/ML Vaginal Cream Estradiol 0.1 MG/GM Estrad iol 0.1 MG/GM 10/15/2019 12:00:00 AM EDT active Estradiol 0.1 MG/GM eCW1 ([facility]) Estradiol 0.1 MG/ML Vaginal Cream Estradiol 0.1 MG/GM Estrad iol 0.1 MG/GM 10/15/2019 12:00:00 AM EDT active Estradiol 0.1 MG/GM eCW1 ([facility]) Estradiol 0.1 MG/ML Vaginal Cream Estradiol 0.1 MG/GM Estrad iol 0.1 MG/GM 10/15/2019 12:00:00 AM EDT active Estradiol 0.1 MG/GM eCW1 ([facility]) Estradiol 0.1 MG/ML Vaginal Cream Estradiol 0.1 MG/GM Estrad iol 0.1 MG/GM 10/15/2019 12:00:00 AM EDT active Estradiol 0.1 MG/GM eCW1 ([facility]) Estradiol 0.1 MG/ML Vaginal Cream Estradiol 0.1 MG/GM Estrad iol 0.1 MG/GM 10/15/2019 12:00:00 AM EDT active Estradiol 0.1 MG/GM eCW1 ([facility]) Estradiol 0.1 MG/ML Vaginal Cream Estradiol 0.1 MG/GM Estrad iol 0.1 MG/GM 10/15/2019 12:00:00 AM EDT active Estradiol 0.1 MG/GM eCW1 ([facility]) Estradiol 0.1 MG/ML Vaginal Cream Estradiol 0.1 MG/GM Estrad iol 0.1 MG/GM 10/15/2019 12:00:00 AM EDT active Estradiol 0.1 MG/GM eCW1 ([facility]) Estradiol 0.1 MG/ML Vaginal Cream Estradiol 0.1 MG/GM Estrad iol 0.1 MG/GM 10/15/2019 12:00:00 AM EDT active Estradiol 0.1 MG/GM eCW1 ([facility]) Estradiol 0.1 MG/ML Vaginal Cream Estradiol 0.1 MG/GM Estrad iol 0.1 MG/GM 10/15/2019 12:00:00 AM EDT active Estradiol 0.1 MG/GM eCW1 ([facility]) Estradiol 0.1 MG/ML Vaginal Cream Estradiol 0.1 MG/GM Estrad iol 0.1 MG/GM 10/15/2019 12:00:00 AM EDT active Estradiol 0.1 MG/GM eCW1 ([facility]) Estradiol 0.1 MG/ML Vaginal Cream Estradiol 0.1 MG/GM Estrad iol 0.1 MG/GM 10/15/2019 12:00:00 AM EDT active Estradiol 0.1 MG/GM eCW1 ([facility]) Estradiol 0.1 MG/ML Vaginal Cream Estradiol 0.1 MG/GM Estrad iol 0.1 MG/GM 10/15/2019 12:00:00 AM EDT active Estradiol 0.1 MG/GM eCW1 ([facility]) Estradiol 0.1 MG/ML Vaginal Cream Estradiol 0.1 MG/GM Estrad iol 0.1 MG/GM 10/15/2019 12:00:00 AM EDT active Estradiol 0.1 MG/GM eCW1 ([facility]) 4 mg 10/15/2019 12:00:00 AM EDT tablet 56 TAKE ONE TABLET BY MOUTH EVERY 3 HOURS NEEDED MAXIMUM DAILY DOSE = 8 TABLETS TAKE ONE TABLET BY MOUTH EVERY 3 HOURS NEEDED MAXIMUM DAILY DOSE = 8 TABLETS SOLD: 10/16/2019 [facility] Estradiol 0.1 MG/ML Vaginal Cream Estradiol 0.1 MG/GM Estrad iol 0.1 MG/GM 10/15/2019 12:00:00 AM EDT active Estradiol 0.1 MG/GM eCW1 ([facility]) Estradiol 0.1 MG/ML Vaginal Cream Estradiol 0.1 MG/GM Estrad iol 0.1 MG/GM 10/15/2019 12:00:00 AM EDT active Estradiol 0.1 MG/GM eCW1 ([facility]) Estradiol 0.1 MG/ML Vaginal Cream Estradiol 0.1 MG/GM Estrad iol 0.1 MG/GM 10/15/2019 12:00:00 AM EDT active Estradiol 0.1 MG/GM eCW1 ([facility]) Estradiol 0.1 MG/ML Vaginal Cream Estradiol 0.1 MG/GM Estrad iol 0.1 MG/GM 10/15/2019 12:00:00 AM EDT active Estradiol 0.1 MG/GM eCW1 ([facility]) Estradiol 0.1 MG/ML Vaginal Cream Estradiol 0.1 MG/GM Estrad iol 0.1 MG/GM 10/15/2019 12:00:00 AM EDT active Estradiol 0.1 MG/GM eCW1 ([facility]) 12 % 10/15/2019 12:00:00 AM EDT cream 140 APPLY 1 APPLICATION TO FEET TWO TIMES A DAY EXTERNALLY APPLY 1 APPLICATION TO FEET TWO TIMES A DAY EXTERNALLY SOLD: 01/08/2020 [facility] Estradiol 0.1 MG/ML Vaginal Cream Estradiol 0.1 MG/GM Estrad iol 0.1 MG/GM 10/15/2019 12:00:00 AM EDT active Estradiol 0.1 MG/GM eCW1 ([facility]) Estradiol 0.1 MG/ML Vaginal Cream Estradiol 0.1 MG/GM Estrad iol 0.1 MG/GM 10/15/2019 12:00:00 AM EDT active Estradiol 0.1 MG/GM eCW1 ([facility]) Estradiol 0.1 MG/ML Vaginal Cream Estradiol 0.1 MG/GM Estrad iol 0.1 MG/GM 10/15/2019 12:00:00 AM EDT active Estradiol 0.1 MG/GM eCW1 ([facility]) Estradiol 0.1 MG/ML Vaginal Cream Estradiol 0.1 MG/GM Estrad iol 0.1 MG/GM 10/15/2019 12:00:00 AM EDT active Estradiol 0.1 MG/GM eCW1 ([facility]) Estradiol 0.1 MG/ML Vaginal Cream Estradiol 0.1 MG/GM Estrad iol 0.1 MG/GM 10/15/2019 12:00:00 AM EDT active Estradiol 0.1 MG/GM eCW1 ([facility]) Estradiol 0.1 MG/ML Vaginal Cream Estradiol 0.1 MG/GM Estrad iol 0.1 MG/GM 10/15/2019 12:00:00 AM EDT active Estradiol 0.1 MG/GM eCW1 ([facility]) Estradiol 0.1 MG/ML Vaginal Cream Estradiol 0.1 MG/GM Estrad iol 0.1 MG/GM 10/15/2019 12:00:00 AM EDT active Estradiol 0.1 MG/GM eCW1 ([facility]) Estradiol 0.1 MG/ML Vaginal Cream Estradiol 0.1 MG/GM Estrad iol 0.1 MG/GM 10/15/2019 12:00:00 AM EDT active Estradiol 0.1 MG/GM eCW1 ([facility]) Estradiol 0.1 MG/ML Vaginal Cream Estradiol 0.1 MG/GM Estrad iol 0.1 MG/GM 10/15/2019 12:00:00 AM EDT active Estradiol 0.1 MG/GM eCW1 ([facility]) Estradiol 0.1 MG/ML Vaginal Cream Estradiol 0.1 MG/GM Estrad iol 0.1 MG/GM 10/15/2019 12:00:00 AM EDT active Estradiol 0.1 MG/GM eCW1 ([facility]) Estradiol 0.1 MG/ML Vaginal Cream Estradiol 0.1 MG/GM Estrad iol 0.1 MG/GM 10/15/2019 12:00:00 AM EDT active Estradiol 0.1 MG/GM eCW1 ([facility]) 0.01 % (0.1 mg/gram) 10/15/2019 12:00:00 AM EDT cream 42 APPLY 1 GRAM DAILY VAGINAL DIRECTED APPLY 1 GRAM DAILY VAGINAL DIRECTED SOLD: 11/12/2019 [facility] 12 % 10/15/2019 12:00:00 AM EDT cream 140 APPLY 1 APPLICATION TO FEET TWO TIMES A DAY EXTERNALLY APPLY 1 APPLICATION TO FEET TWO TIMES A DAY EXTERNALLY SOLD: 12/10/2019 [facility] Estradiol 0.1 MG/ML Vaginal Cream Estradiol 0.1 MG/GM Estrad iol 0.1 MG/GM 10/15/2019 12:00:00 AM EDT active Estradiol 0.1 MG/GM eCW1 ([facility]) 0.01 % (0.1 mg/gram) 10/15/2019 12:00:00 AM EDT cream 42 APPLY 1 GRAM DAILY VAGINAL DIRECTED APPLY 1 GRAM DAILY VAGINAL DIRECTED SOLD: 10/16/2019 [facility] Estradiol 0.1 MG/ML Vaginal Cream Estradiol 0.1 MG/GM Estrad iol 0.1 MG/GM 10/15/2019 12:00:00 AM EDT active Estradiol 0.1 MG/GM eCW1 ([facility]) Estradiol 0.1 MG/ML Vaginal Cream Estradiol 0.1 MG/GM Estrad iol 0.1 MG/GM 10/15/2019 12:00:00 AM EDT active Estradiol 0.1 MG/GM eCW1 ([facility]) Estradiol 0.1 MG/ML Vaginal Cream Estradiol 0.1 MG/GM Estrad iol 0.1 MG/GM 10/15/2019 12:00:00 AM EDT active Estradiol 0.1 MG/GM eCW1 ([facility]) Estradiol 0.1 MG/ML Vaginal Cream Estradiol 0.1 MG/GM Estrad iol 0.1 MG/GM 10/15/2019 12:00:00 AM EDT active Estradiol 0.1 MG/GM eCW1 ([facility]) Estradiol 0.1 MG/ML Vaginal Cream Estradiol 0.1 MG/GM Estrad iol 0.1 MG/GM 10/15/2019 12:00:00 AM EDT active Estradiol 0.1 MG/GM eCW1 ([facility]) Estradiol 0.1 MG/ML Vaginal Cream Estradiol 0.1 MG/GM Estrad iol 0.1 MG/GM 10/15/2019 12:00:00 AM EDT active Estradiol 0.1 MG/GM eCW1 ([facility]) Estradiol 0.1 MG/ML Vaginal Cream Estradiol 0.1 MG/GM Estrad iol 0.1 MG/GM 10/15/2019 12:00:00 AM EDT active Estradiol 0.1 MG/GM eCW1 ([facility]) Estradiol 0.1 MG/ML Vaginal Cream Estradiol 0.1 MG/GM Estrad iol 0.1 MG/GM 10/15/2019 12:00:00 AM EDT active Estradiol 0.1 MG/GM eCW1 ([facility]) Estradiol 0.1 MG/ML Vaginal Cream Estradiol 0.1 MG/GM Estrad iol 0.1 MG/GM 10/15/2019 12:00:00 AM EDT active Estradiol 0.1 MG/GM eCW1 ([facility]) Estradiol 0.1 MG/ML Vaginal Cream Estradiol 0.1 MG/GM Estrad iol 0.1 MG/GM 10/15/2019 12:00:00 AM EDT active Estradiol 0.1 MG/GM eCW1 ([facility]) Estradiol 0.1 MG/ML Vaginal Cream Estradiol 0.1 MG/GM Estrad iol 0.1 MG/GM 10/15/2019 12:00:00 AM EDT active Estradiol 0.1 MG/GM eCW1 ([facility]) Estradiol 0.1 MG/ML Vaginal Cream Estradiol 0.1 MG/GM Estrad iol 0.1 MG/GM 10/15/2019 12:00:00 AM EDT active Estradiol 0.1 MG/GM eCW1 ([facility]) 12 % 10/15/2019 12:00:00 AM EDT cream 140 APPLY 1 APPLICATION TO FEET TWO TIMES A DAY EXTERNALLY APPLY 1 APPLICATION TO FEET TWO TIMES A DAY EXTERNALLY SOLD: 03/04/2020 [facility] Estradiol 0.1 MG/ML Vaginal Cream Estradiol 0.1 MG/GM Estrad iol 0.1 MG/GM 10/15/2019 12:00:00 AM EDT active Estradiol 0.1 MG/GM eCW1 ([facility]) ALCOHOL ANTISEPTIC PADS 10/08/2019 12:00:00 AM EDT pads, med icated 100 TEST BLOOD SUGAR FOUR TIMES A DAY DIRECTED NEEDED TEST BLOOD SUGAR FOUR TIMES A DAY DIRECTED NEEDED SOLD: 12/13/2019 [facility] ALCOHOL ANTISEPTIC PADS 10/08/2019 12:00:00 AM EDT pads, med icated 100 TEST BLOOD SUGAR FOUR TIMES A DAY DIRECTED NEEDED TEST BLOOD SUGAR FOUR TIMES A DAY DIRECTED NEEDED SOLD: 11/21/2019 [facility] ALCOHOL ANTISEPTIC PADS 10/08/2019 12:00:00 AM EDT pads, med icated 100 TEST BLOOD SUGAR FOUR TIMES A DAY DIRECTED NEEDED TEST BLOOD SUGAR FOUR TIMES A DAY DIRECTED NEEDED SOLD: 10/30/2019 [facility] ALCOHOL ANTISEPTIC PADS 10/08/2019 12:00:00 AM EDT pads, med icated 100 TEST BLOOD SUGAR FOUR TIMES A DAY DIRECTED NEEDED TEST BLOOD SUGAR FOUR TIMES A DAY DIRECTED NEEDED SOLD: 04/02/2020 [facility] ALCOHOL ANTISEPTIC PADS 10/08/2019 12:00:00 AM EDT pads, med icated 100 TEST BLOOD SUGAR FOUR TIMES A DAY DIRECTED NEEDED TEST BLOOD SUGAR FOUR TIMES A DAY DIRECTED NEEDED SOLD: 04/24/2020 [facility] ALCOHOL ANTISEPTIC PADS 10/08/2019 12:00:00 AM EDT pads, med icated 100 TEST BLOOD SUGAR FOUR TIMES A DAY DIRECTED NEEDED TEST BLOOD SUGAR FOUR TIMES A DAY DIRECTED NEEDED SOLD: 10/08/2019 [facility] ALCOHOL ANTISEPTIC PADS 10/08/2019 12:00:00 AM EDT pads, med icated 100 TEST BLOOD SUGAR FOUR TIMES A DAY DIRECTED NEEDED TEST BLOOD SUGAR FOUR TIMES A DAY DIRECTED NEEDED SOLD: 03/10/2020 [facility] ALCOHOL ANTISEPTIC PADS 10/08/2019 12:00:00 AM EDT pads, med icated 100 TEST BLOOD SUGAR FOUR TIMES A DAY DIRECTED NEEDED TEST BLOOD SUGAR FOUR TIMES A DAY DIRECTED NEEDED SOLD: 05/16/2020 [facility] ALCOHOL ANTISEPTIC PADS 10/08/2019 12:00:00 AM EDT pads, med icated 100 TEST BLOOD SUGAR FOUR TIMES A DAY DIRECTED NEEDED TEST BLOOD SUGAR FOUR TIMES A DAY DIRECTED NEEDED SOLD: 01/04/2020 [facility] ALCOHOL ANTISEPTIC PADS 10/08/2019 12:00:00 AM EDT pads, med icated 100 TEST BLOOD SUGAR FOUR TIMES A DAY DIRECTED NEEDED TEST BLOOD SUGAR FOUR TIMES A DAY DIRECTED NEEDED SOLD: 01/26/2020 [facility] Estrogens, Conjugated (HALFWAY) 0.625 MG/ML Vaginal Cream [Premarin] Premarin 0.625 MG/GM Premarin 0.625 MG/GM 10/01/2019 12:00:00 AM EDT active Premarin 0.625 MG/GM eCW1 ([facility]) 4 mg 10/01/2019 12:00:00 AM EDT tablet 56 TAKE 1 TABLET BY MOUTH EVERY 3 HOURS NEEDED MAXIMUM DAILY DOSE = 8 TABLETS TAKE 1 TABLET BY MOUTH EVERY 3 HOURS NEEDED MAXIMUM DAILY DOSE = 8 TABLETS SOLD: 10/01/2019 [facility] Estrogens, Conjugated (HALFWAY) 0.625 MG/ML Vaginal Cream [Premarin] Premarin 0.625 MG/GM Premarin 0.625 MG/GM 10/01/2019 12:00:00 AM EDT active Premarin 0.625 MG/GM eCW1 ([facility]) Estrogens, Conjugated (HALFWAY) 0.625 MG/ML Vaginal Cream [Premarin] Premarin 0.625 MG/GM Premarin 0.625 MG/GM 10/01/2019 12:00:00 AM EDT active Premarin 0.625 MG/GM eCW1 ([facility]) Estrogens, Conjugated (HALFWAY) 0.625 MG/ML Vaginal Cream [Premarin] Premarin 0.625 MG/GM Premarin 0.625 MG/GM 10/01/2019 12:00:00 AM EDT active Premarin 0.625 MG/GM eCW1 ([facility]) 4 mg/2 mL 09/28/2019 12:00:00 AM EDT solution 120 ONE INJECTION TWICE A DAY AT LEAST 8 HOURS APART DIRECTED ONE INJECTION TWICE A DAY AT LEAST 8 ANA RS APART DIRECTED SOLD: 10/25/2019 [facility] 4 mg/2 mL 09/28/2019 12:00:00 AM EDT solution 120 ONE INJECTION TWICE A DAY AT LEAST 8 HOURS APART DIRECTED ONE INJECTION TWICE A DAY AT LEAST 8 ANA RS APART DIRECTED SOLD: 09/28/2019 [facility] 100 unit/mL (3 mL) 09/21/2019 12:00:00 AM EDT insulin pen 15 INJECT 35 UNITS UNDER THE SKIN IN THE MORNING INJECT 35 UNITS UNDER THE SKIN IN THE MORNING SOLD: 09/21/2019 [facility] 100 unit/mL (3 mL) 09/21/2019 12:00:00 AM EDT insulin pen 15 INJECT 35 UNITS UNDER THE SKIN IN THE MORNING INJECT 35 UNITS UNDER THE SKIN IN THE MORNING SOLD: 01/28/2020 [facility] 100 unit/mL (3 mL) 09/21/2019 12:00:00 AM EDT insulin pen 15 INJECT 35 UNITS UNDER THE SKIN IN THE MORNING INJECT 35 UNITS UNDER THE SKIN IN THE MORNING SOLD: 10/29/2019 [facility] 100 unit/mL (3 mL) 09/21/2019 12:00:00 AM EDT insulin pen 15 INJECT 35 UNITS UNDER THE SKIN IN THE MORNING INJECT 35 UNITS UNDER THE SKIN IN THE MORNING SOLD: 12/10/2019 [facility] 100 unit/mL (3 mL) 09/21/2019 12:00:00 AM EDT insulin pen 15 INJECT 35 UNITS UNDER THE SKIN IN THE MORNING INJECT 35 UNITS UNDER THE SKIN IN THE MORNING SOLD: 04/21/2020 [facility] 100 unit/mL (3 mL) 09/21/2019 12:00:00 AM EDT insulin pen 15 INJECT 35 UNITS UNDER THE SKIN IN THE MORNING INJECT 35 UNITS UNDER THE SKIN IN THE MORNING SOLD: 03/06/2020 [facility] 90 mcg/actuation 09/17/2019 12:00:00 AM EDT HFA aerosol inha ler 18 INHALE TWO PUFFS BY MOUTH EVERY 4 HOURS NEEDED INHALE TWO PUFFS BY MOUTH EVERY 4 HOURS NEEDED SOLD: 11/12/2019 [facility] 1 gram 09/17/2019 12:00:00 AM EDT tablet 60 TAKE ONE TABLET BY MOUTH TWICE A DAY TAKE ONE TABLET BY MOUTH TWICE A DAY SOLD: 02/04/2020 [facility] Hydromorphone Hydrochloride 4 MG Oral Tablet Hydromorp nellie HCl 4 MG Hydromorphone HCl 4 MG 09/17/2019 12:00:00 AM EDT 1.0 {tablets} suspended Hydromorphone HCl 4 MG eCW1 ([facility]) Hydromorphone Hydrochloride 4 MG Oral Tablet Hydromorp nellie HCl 4 MG Hydromorphone HCl 4 MG 09/17/2019 12:00:00 AM EDT 1.0 {tablets} active Hydromorphone HCl 4 MG eCW1 ([facility]) 31 gauge x 5/16" 09/17/2019 12:00:00 AM EDT needle 30 USE DIRECTED DAILY USE DIRECTED DAILY SOLD: 01/07/2020 [facility] Hydromorphone Hydrochloride 4 MG Oral Tablet Hydromorp nellie HCl 4 MG Hydromorphone HCl 4 MG 09/17/2019 12:00:00 AM EDT 1.0 {tablets} active Hydromorphone HCl 4 MG eCW1 ([facility]) 1 gram 09/17/2019 12:00:00 AM EDT tablet 60 TAKE ONE TABLET BY MOUTH TWICE A DAY TAKE ONE TABLET BY MOUTH TWICE A DAY SOLD: 10/16/2019 [facility] 31 gauge x 5/16" 09/17/2019 12:00:00 AM EDT needle 30 USE DIRECTED DAILY USE DIRECTED DAILY SOLD: 02/04/2020 [facility] 1 gram 09/17/2019 12:00:00 AM EDT tablet 60 TAKE ONE TABLET BY MOUTH TWICE A DAY TAKE ONE TABLET BY MOUTH TWICE A DAY SOLD: 11/12/2019 [facility] 90 mcg/actuation 09/17/2019 12:00:00 AM EDT HFA aerosol inha ler 18 INHALE TWO PUFFS BY MOUTH EVERY 4 HOURS NEEDED INHALE TWO PUFFS BY MOUTH EVERY 4 HOURS NEEDED SOLD: 10/16/2019 [facility] Hydromorphone Hydrochloride 4 MG Oral Tablet Hydromorp nellie HCl 4 MG Hydromorphone HCl 4 MG 09/17/2019 12:00:00 AM EDT 1.0 {tablets} active Hydromorphone HCl 4 MG eCW1 ([facility]) 31 gauge x 5/16" 09/17/2019 12:00:00 AM EDT needle 30 USE DIRECTED DAILY USE DIRECTED DAILY SOLD: 12/10/2019 [facility] Hydromorphone Hydrochloride 4 MG Oral Tablet Hydromorp nellie HCl 4 MG Hydromorphone HCl 4 MG 09/17/2019 12:00:00 AM EDT 1.0 {tablets} active Hydromorphone HCl 4 MG eCW1 ([facility]) 1 gram 09/17/2019 12:00:00 AM EDT tablet 60 TAKE ONE TABLET BY MOUTH TWICE A DAY TAKE ONE TABLET BY MOUTH TWICE A DAY SOLD: 09/17/2019 [facility] Hydromorphone Hydrochloride 4 MG Oral Tablet Hydromorp nellie HCl 4 MG Hydromorphone HCl 4 MG 09/17/2019 12:00:00 AM EDT 1.0 {tablets} active Hydromorphone HCl 4 MG eCW1 ([facility]) 90 mcg/actuation 09/17/2019 12:00:00 AM EDT HFA aerosol inha ler 18 INHALE TWO PUFFS BY MOUTH EVERY 4 HOURS NEEDED INHALE TWO PUFFS BY MOUTH EVERY 4 HOURS NEEDED SOLD: 09/17/2019 [facility] Hydromorphone Hydrochloride 4 MG Oral Tablet Hydromorp nellie HCl 4 MG Hydromorphone HCl 4 MG 09/17/2019 12:00:00 AM EDT 1.0 {tablets} suspended Hydromorphone HCl 4 MG eCW1 ([facility]) Hydromorphone Hydrochloride 4 MG Oral Tablet Hydromorp nellie HCl 4 MG Hydromorphone HCl 4 MG 09/17/2019 12:00:00 AM EDT 1.0 {tablets} active Hydromorphone HCl 4 MG eCW1 ([facility]) 31 gauge x 5/16" 09/17/2019 12:00:00 AM EDT needle 30 USE DIRECTED DAILY USE DIRECTED DAILY SOLD: 10/16/2019 [facility] Hydromorphone Hydrochloride 4 MG Oral Tablet Hydromorp nellie HCl 4 MG Hydromorphone HCl 4 MG 09/17/2019 12:00:00 AM EDT 1.0 {tablets} suspended Hydromorphone HCl 4 MG eCW1 ([facility]) 4 mg 09/17/2019 12:00:00 AM EDT tablet 56 TAKE ONE TABLET BY MOUTH EVERY 3 HOURS NEEDED MAXIMUM DAILY DOSE = 8 TABLETS TAKE ONE TABLET BY MOUTH EVERY 3 HOURS NEEDED MAXIMUM DAILY DOSE = 8 TABLETS SOLD: 09/17/2019 [facility] 31 gauge x 5/16" 09/17/2019 12:00:00 AM EDT needle 30 USE DIRECTED DAILY USE DIRECTED DAILY SOLD: 11/12/2019 [facility] ALCOHOL ANTISEPTIC PADS 09/17/2019 12:00:00 AM EDT pads, med icated 100 USE DIRECTED TEST BLOOD SUGAR FOUR TIMES A DAY NEEDED USE DIRECTED TEST BLOOD SUGAR FOUR TIMES A DAY NEEDED SOLD: 09/17/2019 [facility] Hydromorphone Hydrochloride 4 MG Oral Tablet Hydromorp nellie HCl 4 MG Hydromorphone HCl 4 MG 09/17/2019 12:00:00 AM EDT 1.0 {tablets} active Hydromorphone HCl 4 MG eCW1 ([facility]) 1 gram 09/17/2019 12:00:00 AM EDT tablet 60 TAKE ONE TABLET BY MOUTH TWICE A DAY TAKE ONE TABLET BY MOUTH TWICE A DAY SOLD: 12/10/2019 [facility] Hydromorphone Hydrochloride 4 MG Oral Tablet Hydromorp nellie HCl 4 MG Hydromorphone HCl 4 MG 09/17/2019 12:00:00 AM EDT 1.0 {tablets} active Hydromorphone HCl 4 MG eCW1 ([facility]) 31 gauge x 5/16" 09/17/2019 12:00:00 AM EDT needle 30 USE DIRECTED DAILY USE DIRECTED DAILY SOLD: 09/17/2019 [facility] 1 gram 09/17/2019 12:00:00 AM EDT tablet 60 TAKE ONE TABLET BY MOUTH TWICE A DAY TAKE ONE TABLET BY MOUTH TWICE A DAY SOLD: 01/07/2020 [facility] Hydromorphone Hydrochloride 4 MG Oral Tablet Hydromorp nellie HCl 4 MG Hydromorphone HCl 4 MG 09/17/2019 12:00:00 AM EDT 1.0 {tablets} active Hydromorphone HCl 4 MG eCW1 ([facility]) Metronidazole 500 MG Oral Tablet Metronidazole 500 MG 2019 12:00:00 AM EDT 1.0 {tablet} active Metronidazo le 500 MG eCW1 ([facility]) Metronidazole 500 MG Oral Tablet Metronidazole 500 MG 2019 12:00:00 AM EDT 1.0 {tablet} active Metronidazo le 500 MG eCW1 ([facility]) Metronidazole 500 MG Oral Tablet Metronidazole 500 MG 2019 12:00:00 AM EDT active 1 tablet eCW1 ([facility]) Metronidazole 500 MG Oral Tablet Metronidazole 500 MG 2019 12:00:00 AM EDT 1.0 {tablet} active Metronidazo le 500 MG eCW1 ([facility]) 4 mg 09/10/2019 12:00:00 AM EDT tablet 90 TAKE TWO TABLETS BY MOUTH EVERY 3 HOURS NEEDED MAXIMUM DAILY DOSE = 16 TABLETS TAKE TWO TABLETS BY MOUTH EVERY 3 HOURS NEEDED MAXIMUM DAILY DOSE = 16 TABLETS SOLD: 09/10/2019 [facility] Metronidazole 500 MG Oral Tablet Metronidazole 500 MG 2019 12:00:00 AM EDT 1.0 {tablet} active Metronidazo le 500 MG eCW1 ([facility]) 500 mg 09/10/2019 12:00:00 AM EDT tablet 14 TAKE ONE TABLET BY MOUTH TWICE A DAY FOR 7 DAYS TAKE ONE TABLET BY MOUTH TWICE A DAY FOR 7 DAYS SOLD: 09/10/2019 [facility] Metronidazole 500 MG Oral Tablet Metronidazole 500 MG 2019 12:00:00 AM EDT 1.0 {tablet} active Metronidazo le 500 MG eCW1 ([facility]) Metronidazole 500 MG Oral Tablet Metronidazole 500 MG 2019 12:00:00 AM EDT 1.0 {tablet} suspended Metronid azole 500 MG eCW1 ([facility]) Metronidazole 500 MG Oral Tablet Metronidazole 500 MG 2019 12:00:00 AM EDT 1.0 {tablet} active Metronidazo le 500 MG eCW1 ([facility]) Metronidazole 500 MG Oral Tablet Metronidazole 500 MG 2019 12:00:00 AM EDT 1.0 {tablet} active Metronidazo le 500 MG eCW1 ([facility]) Metronidazole 500 MG Oral Tablet Metronidazole 500 MG 2019 12:00:00 AM EDT 1.0 {tablet} suspended Metronid azole 500 MG eCW1 ([facility]) Metronidazole 500 MG Oral Tablet Metronidazole 500 MG 2019 12:00:00 AM EDT 1.0 {tablet} suspended Metronid azole 500 MG eCW1 ([facility]) Metronidazole 500 MG Oral Tablet Metronidazole 500 MG 2019 12:00:00 AM EDT 1.0 {tablet} suspended Metronid azole 500 MG eCW1 ([facility]) Metronidazole 500 MG Oral Tablet Metronidazole 500 MG 2019 12:00:00 AM EDT 1.0 {tablet} active Metronidazo le 500 MG eCW1 ([facility]) Metronidazole 500 MG Oral Tablet Metronidazole 500 MG 2019 12:00:00 AM EDT 1.0 {tablet} suspended Metronid azole 500 MG eCW1 ([facility]) Hydromorphone Hydrochloride 4 MG Oral Tablet Hydromorp nellie HCl 4 MG Hydromorphone HCl 4 MG 09/09/2019 12:00:00 AM EDT active 2 tablets eCW1 ([facility]) Hydromorphone Hydrochloride 4 MG Oral Tablet Hydromorp nellie HCl 4 MG Hydromorphone HCl 4 MG 09/09/2019 12:00:00 AM EDT active 2 tablets eCW1 ([facility]) Hydromorphone Hydrochloride 4 MG Oral Tablet Hydromorp nellie HCl 4 MG Hydromorphone HCl 4 MG 09/09/2019 12:00:00 AM EDT 2.0 {tablets} active Hydromorphone HCl 4 MG eCW1 ([facility]) Nebulizer/Tubing/Mouthpiece - Nebulizer/Tubing/Mouthpiece - 09/03/2019 12:00:00 AM EDT active Nebulizer/Tubing/ Mouthpiece - eCW1 ([facility]) Nebulizer/Tubing/Mouthpiece - Nebulizer/Tubing/Mouthpiece - 09/03/2019 12:00:00 AM EDT active Nebulizer/Tubing/ Mouthpiece - eCW1 ([facility]) Nebulizer Compressor UNK 09/03/2019 12:00:00 AM EDT active Nebulizer Compressor eCW1 ([facility]) Nebulizer Compressor UNK 09/03/2019 12:00:00 AM EDT active Nebulizer Compressor eCW1 ([facility]) Nebulizer/Tubing/Mouthpiece - Nebulizer/Tubing/Mouthpiece - 09/03/2019 12:00:00 AM EDT active Nebulizer/Tubing/ Mouthpiece - eCW1 ([facility]) Nebulizer Compressor UNK 09/03/2019 12:00:00 AM EDT active Nebulizer Compressor eCW1 ([facility]) 10 mg 09/03/2019 12:00:00 AM EDT capsule 120 TAKE ONE CAPSULE BY MOUTH FOUR TIMES A DAY TAKE ONE CAPSULE BY MOUTH FOUR TIMES A DAY SOLD: 09/30/2019 [facility] Nebulizer/Tubing/Mouthpiece - Nebulizer/Tubing/Mouthpiece - 09/03/2019 12:00:00 AM EDT active Nebulizer/Tubing/ Mouthpiece - eCW1 ([facility]) 10 mg 09/03/2019 12:00:00 AM EDT tablet 90 TAKE ONE TABLET BY MOUTH THREE TIMES A DAY TAKE ONE TABLET BY MOUTH THREE TIMES A DAY SOLD: 09/03/2019 [facility] Nebulizer Compressor UNK 09/03/2019 12:00:00 AM EDT active Nebulizer Compressor eCW1 ([facility]) Nebulizer Compressor UNK 09/03/2019 12:00:00 AM EDT active Nebulizer Compressor eCW1 ([facility]) Nebulizer/Tubing/Mouthpiece - Nebulizer/Tubing/Mouthpiece - 09/03/2019 12:00:00 AM EDT active Nebulizer/Tubing/ Mouthpiece - eCW1 ([facility]) Nebulizer/Tubing/Mouthpiece - Nebulizer/Tubing/Mouthpiece - 09/03/2019 12:00:00 AM EDT active Nebulizer/Tubing/ Mouthpiece - eCW1 ([facility]) Nebulizer/Tubing/Mouthpiece - Nebulizer/Tubing/Mouthpiece - 09/03/2019 12:00:00 AM EDT active Nebulizer/Tubing/ Mouthpiece - eCW1 ([facility]) Nebulizer/Tubing/Mouthpiece - Nebulizer/Tubing/Mouthpiece - 09/03/2019 12:00:00 AM EDT active Nebulizer/Tubing/ Mouthpiece - eCW1 ([facility]) Nebulizer/Tubing/Mouthpiece - Nebulizer/Tubing/Mouthpiece - 09/03/2019 12:00:00 AM EDT active Nebulizer/Tubing/ Mouthpiece - eCW1 ([facility]) Nebulizer Compressor UNK 09/03/2019 12:00:00 AM EDT active Nebulizer Compressor eCW1 ([facility]) Nebulizer Compressor UNK 09/03/2019 12:00:00 AM EDT active Nebulizer Compressor eCW1 ([facility]) Nebulizer/Tubing/Mouthpiece - Nebulizer/Tubing/Mouthpiece - 09/03/2019 12:00:00 AM EDT active Nebulizer/Tubing/ Mouthpiece - eCW1 ([facility]) Nebulizer Compressor UNK 09/03/2019 12:00:00 AM EDT active Nebulizer Compressor eCW1 ([facility]) Nebulizer/Tubing/Mouthpiece - Nebulizer/Tubing/Mouthpiece - 09/03/2019 12:00:00 AM EDT active Nebulizer/Tubing/ Mouthpiece - eCW1 ([facility]) Nebulizer/Tubing/Mouthpiece - Nebulizer/Tubing/Mouthpiece - 09/03/2019 12:00:00 AM EDT active Nebulizer/Tubing/ Mouthpiece - eCW1 ([facility]) Nebulizer Compressor UNK 09/03/2019 12:00:00 AM EDT active Nebulizer Compressor eCW1 ([facility]) Nebulizer Compressor UNK 09/03/2019 12:00:00 AM EDT active Nebulizer Compressor eCW1 ([facility]) Nebulizer Compressor UNK 09/03/2019 12:00:00 AM EDT active Nebulizer Compressor eCW1 ([facility]) Nebulizer/Tubing/Mouthpiece - Nebulizer/Tubing/Mouthpiece - 09/03/2019 12:00:00 AM EDT active Nebulizer/Tubing/ Mouthpiece - eCW1 ([facility]) Nebulizer/Tubing/Mouthpiece - Nebulizer/Tubing/Mouthpiece - 09/03/2019 12:00:00 AM EDT active Nebulizer/Tubing/ Mouthpiece - eCW1 ([facility]) Nebulizer Compressor UNK 09/03/2019 12:00:00 AM EDT active Nebulizer Compressor eCW1 ([facility]) Nebulizer/Tubing/Mouthpiece - Nebulizer/Tubing/Mouthpiece - 09/03/2019 12:00:00 AM EDT active Nebulizer/Tubing/ Mouthpiece - eCW1 ([facility]) Nebulizer Compressor UNK 09/03/2019 12:00:00 AM EDT active Nebulizer Compressor eCW1 ([facility]) Nebulizer Compressor UNK 09/03/2019 12:00:00 AM EDT active Nebulizer Compressor eCW1 ([facility]) Nebulizer/Tubing/Mouthpiece - Nebulizer/Tubing/Mouthpiece - 09/03/2019 12:00:00 AM EDT active Nebulizer/Tubing/ Mouthpiece - eCW1 ([facility]) 10 mg 09/03/2019 12:00:00 AM EDT tablet 90 TAKE ONE TABLET BY MOUTH THREE TIMES A DAY TAKE ONE TABLET BY MOUTH THREE TIMES A DAY SOLD: 01/13/2020 [facility] Nebulizer Compressor UNK 09/03/2019 12:00:00 AM EDT active Nebulizer Compressor eCW1 ([facility]) 10 mg 09/03/2019 12:00:00 AM EDT tablet 90 TAKE ONE TABLET BY MOUTH THREE TIMES A DAY TAKE ONE TABLET BY MOUTH THREE TIMES A DAY SOLD: 12/17/2019 [facility] Nebulizer/Tubing/Mouthpiece - Nebulizer/Tubing/Mouthpiece - 09/03/2019 12:00:00 AM EDT active Nebulizer/Tubing/ Mouthpiece - [email or web address] ([facility]) Nebulizer Compressor UNK 09/03/2019 12:00:00 AM EDT active Nebulizer Compressor [email or web address] ([facility]) Nebulizer/Tubing/Mouthpiece - Nebulizer/Tubing/Mouthpiece - 09/03/2019 12:00:00 AM EDT active Nebulizer/Tubing/ Mouthpiece - [email or web address] ([facility]) Nebulizer/Tubing/Mouthpiece - Nebulizer/Tubing/Mouthpiece - 09/03/2019 12:00:00 AM EDT active Nebulizer/Tubing/ Mouthpiece - [email or web address] ([facility]) Nebulizer/Tubing/Mouthpiece - Nebulizer/Tubing/Mouthpiece - 09/03/2019 12:00:00 AM EDT active Nebulizer/Tubing/ Mouthpiece - [email or web address] ([facility]) Nebulizer Compressor UNK 09/03/2019 12:00:00 AM EDT active Nebulizer Compressor [email or web address] ([facility]) Nebulizer/Tubing/Mouthpiece - Nebulizer/Tubing/Mouthpiece - 09/03/2019 12:00:00 AM EDT active Nebulizer/Tubing/ Mouthpiece - [email or web address] ([facility]) Nebulizer Compressor UNK 09/03/2019 12:00:00 AM EDT active Nebulizer Compressor [email or web address] ([facility]) Nebulizer/Tubing/Mouthpiece - Nebulizer/Tubing/Mouthpiece - 09/03/2019 12:00:00 AM EDT active Nebulizer/Tubing/ Mouthpiece - [email or web address] ([facility]) Nebulizer/Tubing/Mouthpiece - Nebulizer/Tubing/Mouthpiece - 09/03/2019 12:00:00 AM EDT active Nebulizer/Tubing/ Mouthpiece - [email or web address] ([facility]) Nebulizer/Tubing/Mouthpiece - Nebulizer/Tubing/Mouthpiece - 09/03/2019 12:00:00 AM EDT active Nebulizer/Tubing/ Mouthpiece - [email or web address] ([facility]) Nebulizer Compressor UNK 09/03/2019 12:00:00 AM EDT active Nebulizer Compressor [email or web address] ([facility]) Nebulizer Compressor UNK 09/03/2019 12:00:00 AM EDT active Nebulizer Compressor eCW1 ([facility]) 10 mg 09/03/2019 12:00:00 AM EDT capsule 120 TAKE ONE CAPSULE BY MOUTH FOUR TIMES A DAY TAKE ONE CAPSULE BY MOUTH FOUR TIMES A DAY SOLD: 09/03/2019 [facility] Nebulizer/Tubing/Mouthpiece - Nebulizer/Tubing/Mouthpiece - 09/03/2019 12:00:00 AM EDT active Nebulizer/Tubing/ Mouthpiece - eCW1 ([facility]) Nebulizer Compressor UNK 09/03/2019 12:00:00 AM EDT active Nebulizer Compressor eCW1 ([facility]) Nebulizer/Tubing/Mouthpiece - Nebulizer/Tubing/Mouthpiece - 09/03/2019 12:00:00 AM EDT active Nebulizer/Tubing/ Mouthpiece - eCW1 ([facility]) Nebulizer Compressor UNK 09/03/2019 12:00:00 AM EDT active Nebulizer Compressor eCW1 ([facility]) Nebulizer Compressor UNK 09/03/2019 12:00:00 AM EDT active Nebulizer Compressor eCW1 ([facility]) Nebulizer/Tubing/Mouthpiece - Nebulizer/Tubing/Mouthpiece - 09/03/2019 12:00:00 AM EDT active Nebulizer/Tubing/ Mouthpiece - eCW1 ([facility]) Nebulizer/Tubing/Mouthpiece - Nebulizer/Tubing/Mouthpiece - 09/03/2019 12:00:00 AM EDT active Nebulizer/Tubing/ Mouthpiece - eCW1 ([facility]) Nebulizer Compressor UNK 09/03/2019 12:00:00 AM EDT active Nebulizer Compressor eCW1 ([facility]) Nebulizer/Tubing/Mouthpiece - Nebulizer/Tubing/Mouthpiece - 09/03/2019 12:00:00 AM EDT active Nebulizer/Tubing/ Mouthpiece - eCW1 ([facility]) Nebulizer/Tubing/Mouthpiece - Nebulizer/Tubing/Mouthpiece - 09/03/2019 12:00:00 AM EDT active Nebulizer/Tubing/ Mouthpiece - eCW1 ([facility]) Nebulizer Compressor UNK 09/03/2019 12:00:00 AM EDT active Nebulizer Compressor eCW1 ([facility]) NEBULIZER AND COMPRESSOR 09/03/2019 12:00:00 AM EDT device 1 USE DIRECTED EVERY 4 HOURS NEEDED USE DIRECTED EVERY 4 HOURS NEEDED SOLD: 09/03/2019 [facility] Nebulizer Compressor UNK 09/03/2019 12:00:00 AM EDT active Nebulizer Compressor eCW1 ([facility]) Nebulizer/Tubing/Mouthpiece - Nebulizer/Tubing/Mouthpiece - 09/03/2019 12:00:00 AM EDT active Nebulizer/Tubing/ Mouthpiece - eCW1 ([facility]) Nebulizer Compressor UNK 09/03/2019 12:00:00 AM EDT active Nebulizer Compressor eCW1 ([facility]) Nebulizer/Tubing/Mouthpiece - Nebulizer/Tubing/Mouthpiece - 09/03/2019 12:00:00 AM EDT active Nebulizer/Tubing/ Mouthpiece - eCW1 ([facility]) Nebulizer/Tubing/Mouthpiece - Nebulizer/Tubing/Mouthpiece - 09/03/2019 12:00:00 AM EDT active Nebulizer/Tubing/ Mouthpiece - eCW1 ([facility]) Nebulizer Compressor UNK 09/03/2019 12:00:00 AM EDT active Nebulizer Compressor eCW1 ([facility]) Nebulizer/Tubing/Mouthpiece - Nebulizer/Tubing/Mouthpiece - 09/03/2019 12:00:00 AM EDT active Nebulizer/Tubing/ Mouthpiece - eCW1 ([facility]) 10 mg 09/03/2019 12:00:00 AM EDT capsule 120 TAKE ONE CAPSULE BY MOUTH FOUR TIMES A DAY TAKE ONE CAPSULE BY MOUTH FOUR TIMES A DAY SOLD: 01/19/2020 [facility] Nebulizer Compressor UNK 09/03/2019 12:00:00 AM EDT active Nebulizer Compressor eCW1 ([facility]) Nebulizer/Tubing/Mouthpiece - Nebulizer/Tubing/Mouthpiece - 09/03/2019 12:00:00 AM EDT active Nebulizer/Tubing/ Mouthpiece - eCW1 ([facility]) Nebulizer Compressor UNK 09/03/2019 12:00:00 AM EDT active Nebulizer Compressor eCW1 ([facility]) Nebulizer Compressor UNK 09/03/2019 12:00:00 AM EDT active Nebulizer Compressor eCW1 ([facility]) Nebulizer Compressor UNK 09/03/2019 12:00:00 AM EDT active Nebulizer Compressor eCW1 ([facility]) . UNIT 09/03/2019 12:00:00 AM EDT Aerosol 1 USE DIRECTED EVERY 4 HOURS NEEDED USE DIRECTED EVERY 4 HOURS NEEDED SOLD: 09/03/2019 [facility] Nebulizer/Tubing/Mouthpiece - Nebulizer/Tubing/Mouthpiece - 09/03/2019 12:00:00 AM EDT active Nebulizer/Tubing/ Mouthpiece - eCW1 ([facility]) Nebulizer/Tubing/Mouthpiece - Nebulizer/Tubing/Mouthpiece - 09/03/2019 12:00:00 AM EDT active Nebulizer/Tubing/ Mouthpiece - eCW1 ([facility]) Nebulizer Compressor UNK 09/03/2019 12:00:00 AM EDT active Nebulizer Compressor eCW1 ([facility]) Nebulizer Compressor UNK 09/03/2019 12:00:00 AM EDT active Nebulizer Compressor eCW1 ([facility]) 10 mg 09/03/2019 12:00:00 AM EDT tablet 90 TAKE ONE TABLET BY MOUTH THREE TIMES A DAY TAKE ONE TABLET BY MOUTH THREE TIMES A DAY SOLD: 11/19/2019 [facility] Nebulizer/Tubing/Mouthpiece - Nebulizer/Tubing/Mouthpiece - 09/03/2019 12:00:00 AM EDT active Nebulizer/Tubing/ Mouthpiece - eCW1 ([facility]) Nebulizer Compressor UNK 09/03/2019 12:00:00 AM EDT active Nebulizer Compressor eCW1 ([facility]) Nebulizer Compressor UNK 09/03/2019 12:00:00 AM EDT active Nebulizer Compressor eCW1 ([facility]) Nebulizer/Tubing/Mouthpiece - Nebulizer/Tubing/Mouthpiece - 09/03/2019 12:00:00 AM EDT active Nebulizer/Tubing/ Mouthpiece - eCW1 ([facility]) Nebulizer Compressor UNK 09/03/2019 12:00:00 AM EDT active Nebulizer Compressor eCW1 ([facility]) Nebulizer Compressor UNK 09/03/2019 12:00:00 AM EDT active Nebulizer Compressor eCW1 ([facility]) Nebulizer/Tubing/Mouthpiece - Nebulizer/Tubing/Mouthpiece - 09/03/2019 12:00:00 AM EDT active Nebulizer/Tubing/ Mouthpiece - eCW1 ([facility]) Nebulizer/Tubing/Mouthpiece - Nebulizer/Tubing/Mouthpiece - 09/03/2019 12:00:00 AM EDT active Nebulizer/Tubing/ Mouthpiece - eCW1 ([facility]) Nebulizer/Tubing/Mouthpiece - Nebulizer/Tubing/Mouthpiece - 09/03/2019 12:00:00 AM EDT active Nebulizer/Tubing/ Mouthpiece - eCW1 ([facility]) Nebulizer/Tubing/Mouthpiece - Nebulizer/Tubing/Mouthpiece - 09/03/2019 12:00:00 AM EDT active Nebulizer/Tubing/ Mouthpiece - eCW1 ([facility]) Nebulizer Compressor UNK 09/03/2019 12:00:00 AM EDT active Nebulizer Compressor eCW1 ([facility]) Nebulizer/Tubing/Mouthpiece - Nebulizer/Tubing/Mouthpiece - 09/03/2019 12:00:00 AM EDT active Nebulizer/Tubing/ Mouthpiece - eCW1 ([facility]) Nebulizer Compressor UNK 09/03/2019 12:00:00 AM EDT active Nebulizer Compressor eCW1 ([facility]) Nebulizer/Tubing/Mouthpiece - Nebulizer/Tubing/Mouthpiece - 09/03/2019 12:00:00 AM EDT active Nebulizer/Tubing/ Mouthpiece - eCW1 ([facility]) Nebulizer Compressor UNK 09/03/2019 12:00:00 AM EDT active Nebulizer Compressor eCW1 ([facility]) Nebulizer Compressor UNK 09/03/2019 12:00:00 AM EDT active Nebulizer Compressor eCW1 ([facility]) Nebulizer Compressor UNK 09/03/2019 12:00:00 AM EDT active Nebulizer Compressor eCW1 ([facility]) Nebulizer Compressor UNK 09/03/2019 12:00:00 AM EDT active Nebulizer Compressor eCW1 ([facility]) Nebulizer Compressor UNK 09/03/2019 12:00:00 AM EDT active Nebulizer Compressor eCW1 ([facility]) Nebulizer/Tubing/Mouthpiece - Nebulizer/Tubing/Mouthpiece - 09/03/2019 12:00:00 AM EDT active Nebulizer/Tubing/ Mouthpiece - eCW1 ([facility]) Nebulizer Compressor UNK 09/03/2019 12:00:00 AM EDT active Nebulizer Compressor eCW1 ([facility]) Nebulizer/Tubing/Mouthpiece - Nebulizer/Tubing/Mouthpiece - 09/03/2019 12:00:00 AM EDT active Nebulizer/Tubing/ Mouthpiece - eCW1 ([facility]) Nebulizer/Tubing/Mouthpiece - Nebulizer/Tubing/Mouthpiece - 09/03/2019 12:00:00 AM EDT active Nebulizer/Tubing/ Mouthpiece - eCW1 ([facility]) Nebulizer Compressor UNK 09/03/2019 12:00:00 AM EDT active Nebulizer Compressor eCW1 ([facility]) Nebulizer/Tubing/Mouthpiece - Nebulizer/Tubing/Mouthpiece - 09/03/2019 12:00:00 AM EDT active Nebulizer/Tubing/ Mouthpiece - eCW1 ([facility]) Nebulizer Compressor UNK 09/03/2019 12:00:00 AM EDT active Nebulizer Compressor eCW1 ([facility]) Nebulizer Compressor UNK 09/03/2019 12:00:00 AM EDT active Nebulizer Compressor eCW1 ([facility]) Nebulizer/Tubing/Mouthpiece - Nebulizer/Tubing/Mouthpiece - 09/03/2019 12:00:00 AM EDT active Nebulizer/Tubing/ Mouthpiece - eCW1 ([facility]) 10 mg 09/03/2019 12:00:00 AM EDT capsule 120 TAKE ONE CAPSULE BY MOUTH FOUR TIMES A DAY TAKE ONE CAPSULE BY MOUTH FOUR TIMES A DAY SOLD: 12/24/2019 [facility] Nebulizer Compressor UNK 09/03/2019 12:00:00 AM EDT active Nebulizer Compressor eCW1 ([facility]) 10 mg 09/03/2019 12:00:00 AM EDT tablet 90 TAKE ONE TABLET BY MOUTH THREE TIMES A DAY TAKE ONE TABLET BY MOUTH THREE TIMES A DAY SOLD: 10/25/2019 [facility] Nebulizer/Tubing/Mouthpiece - Nebulizer/Tubing/Mouthpiece - 09/03/2019 12:00:00 AM EDT active Nebulizer/Tubing/ Mouthpiece - eCW1 ([facility]) Nebulizer/Tubing/Mouthpiece - Nebulizer/Tubing/Mouthpiece - 09/03/2019 12:00:00 AM EDT active Nebulizer/Tubing/ Mouthpiece - eCW1 ([facility]) Nebulizer Compressor UNK 09/03/2019 12:00:00 AM EDT active 1 eCW1 ([facility]) Nebulizer Compressor UNK 09/03/2019 12:00:00 AM EDT active Nebulizer Compressor eCW1 ([facility]) Nebulizer Compressor UNK 09/03/2019 12:00:00 AM EDT active Nebulizer Compressor eCW1 ([facility]) Nebulizer/Tubing/Mouthpiece - Nebulizer/Tubing/Mouthpiece - 09/03/2019 12:00:00 AM EDT active Nebulizer/Tubing/ Mouthpiece - eCW1 ([facility]) 10 mg 09/03/2019 12:00:00 AM EDT capsule 120 TAKE ONE CAPSULE BY MOUTH FOUR TIMES A DAY TAKE ONE CAPSULE BY MOUTH FOUR TIMES A DAY SOLD: 10/28/2019 [facility] Nebulizer Compressor UNK 09/03/2019 12:00:00 AM EDT active Nebulizer Compressor eCW1 ([facility]) Nebulizer Compressor UNK 09/03/2019 12:00:00 AM EDT active Nebulizer Compressor eCW1 ([facility]) Nebulizer Compressor UNK 09/03/2019 12:00:00 AM EDT active Nebulizer Compressor eCW1 ([facility]) Nebulizer Compressor UNK 09/03/2019 12:00:00 AM EDT active Nebulizer Compressor eCW1 ([facility]) Nebulizer/Tubing/Mouthpiece - Nebulizer/Tubing/Mouthpiece - 09/03/2019 12:00:00 AM EDT active Nebulizer/Tubing/ Mouthpiece - eCW1 ([facility]) Nebulizer/Tubing/Mouthpiece - Nebulizer/Tubing/Mouthpiece - 09/03/2019 12:00:00 AM EDT active Nebulizer/Tubing/ Mouthpiece - eCW1 ([facility]) Nebulizer Compressor UNK 09/03/2019 12:00:00 AM EDT active Nebulizer Compressor eCW1 ([facility]) Nebulizer Compressor UNK 09/03/2019 12:00:00 AM EDT active Nebulizer Compressor eCW1 ([facility]) Nebulizer Compressor UNK 09/03/2019 12:00:00 AM EDT active Nebulizer Compressor eCW1 ([facility]) Nebulizer Compressor UNK 09/03/2019 12:00:00 AM EDT active Nebulizer Compressor eCW1 ([facility]) Nebulizer/Tubing/Mouthpiece - Nebulizer/Tubing/Mouthpiece - 09/03/2019 12:00:00 AM EDT active Nebulizer/Tubing/ Mouthpiece - eCW1 ([facility]) Nebulizer Compressor UNK 09/03/2019 12:00:00 AM EDT active Nebulizer Compressor eCW1 ([facility]) Nebulizer Compressor UNK 09/03/2019 12:00:00 AM EDT active Nebulizer Compressor eCW1 ([facility]) Nebulizer/Tubing/Mouthpiece - Nebulizer/Tubing/Mouthpiece - 09/03/2019 12:00:00 AM EDT active Nebulizer/Tubing/ Mouthpiece - eCW1 ([facility]) Nebulizer/Tubing/Mouthpiece - Nebulizer/Tubing/Mouthpiece - 09/03/2019 12:00:00 AM EDT active Nebulizer/Tubing/ Mouthpiece - eCW1 ([facility]) Nebulizer/Tubing/Mouthpiece - Nebulizer/Tubing/Mouthpiece - 09/03/2019 12:00:00 AM EDT active Nebulizer/Tubing/ Mouthpiece - eCW1 ([facility]) Nebulizer/Tubing/Mouthpiece - Nebulizer/Tubing/Mouthpiece - 09/03/2019 12:00:00 AM EDT active Nebulizer/Tubing/ Mouthpiece - eCW1 ([facility]) Nebulizer/Tubing/Mouthpiece - Nebulizer/Tubing/Mouthpiece - 09/03/2019 12:00:00 AM EDT active as directed eCW1 ([facility]) Nebulizer Compressor UNK 09/03/2019 12:00:00 AM EDT active Nebulizer Compressor eCW1 ([facility]) Nebulizer/Tubing/Mouthpiece - Nebulizer/Tubing/Mouthpiece - 09/03/2019 12:00:00 AM EDT active Nebulizer/Tubing/ Mouthpiece - eCW1 ([facility]) Nebulizer Compressor UNK 09/03/2019 12:00:00 AM EDT active Nebulizer Compressor eCW1 ([facility]) Nebulizer Compressor UNK 09/03/2019 12:00:00 AM EDT active Nebulizer Compressor eCW1 ([facility]) Nebulizer/Tubing/Mouthpiece - Nebulizer/Tubing/Mouthpiece - 09/03/2019 12:00:00 AM EDT active Nebulizer/Tubing/ Mouthpiece - eCW1 ([facility]) Nebulizer/Tubing/Mouthpiece - Nebulizer/Tubing/Mouthpiece - 09/03/2019 12:00:00 AM EDT active Nebulizer/Tubing/ Mouthpiece - eCW1 ([facility]) Nebulizer/Tubing/Mouthpiece - Nebulizer/Tubing/Mouthpiece - 09/03/2019 12:00:00 AM EDT active Nebulizer/Tubing/ Mouthpiece - eCW1 ([facility]) Nebulizer/Tubing/Mouthpiece - Nebulizer/Tubing/Mouthpiece - 09/03/2019 12:00:00 AM EDT active Nebulizer/Tubing/ Mouthpiece - eCW1 ([facility]) Nebulizer/Tubing/Mouthpiece - Nebulizer/Tubing/Mouthpiece - 09/03/2019 12:00:00 AM EDT active Nebulizer/Tubing/ Mouthpiece - eCW1 ([facility]) Nebulizer Compressor UNK 09/03/2019 12:00:00 AM EDT active Nebulizer Compressor eCW1 ([facility]) Nebulizer/Tubing/Mouthpiece - Nebulizer/Tubing/Mouthpiece - 09/03/2019 12:00:00 AM EDT active Nebulizer/Tubing/ Mouthpiece - eCW1 ([facility]) Nebulizer Compressor UNK 09/03/2019 12:00:00 AM EDT active Nebulizer Compressor eCW1 ([facility]) 10 mg 09/03/2019 12:00:00 AM EDT tablet 90 TAKE ONE TABLET BY MOUTH THREE TIMES A DAY TAKE ONE TABLET BY MOUTH THREE TIMES A DAY SOLD: 09/26/2019 [facility] Nebulizer Compressor UNK 09/03/2019 12:00:00 AM EDT active Nebulizer Compressor eCW1 ([facility]) Nebulizer/Tubing/Mouthpiece - Nebulizer/Tubing/Mouthpiece - 09/03/2019 12:00:00 AM EDT active Nebulizer/Tubing/ Mouthpiece - eCW1 ([facility]) 10 mg 09/03/2019 12:00:00 AM EDT capsule 120 TAKE ONE CAPSULE BY MOUTH FOUR TIMES A DAY TAKE ONE CAPSULE BY MOUTH FOUR TIMES A DAY SOLD: 11/26/2019 [facility] Nebulizer Compressor UNK 09/03/2019 12:00:00 AM EDT active Nebulizer Compressor eCW1 ([facility]) Nebulizer Compressor UNK 09/03/2019 12:00:00 AM EDT active Nebulizer Compressor eCW1 ([facility]) Nebulizer/Tubing/Mouthpiece - Nebulizer/Tubing/Mouthpiece - 09/03/2019 12:00:00 AM EDT active Nebulizer/Tubing/ Mouthpiece - eCW1 ([facility]) Nebulizer/Tubing/Mouthpiece - Nebulizer/Tubing/Mouthpiece - 09/03/2019 12:00:00 AM EDT active Nebulizer/Tubing/ Mouthpiece - eCW1 ([facility]) Nebulizer Compressor UNK 09/03/2019 12:00:00 AM EDT active Nebulizer Compressor eCW1 ([facility]) Nebulizer/Tubing/Mouthpiece - Nebulizer/Tubing/Mouthpiece - 09/03/2019 12:00:00 AM EDT active Nebulizer/Tubing/ Mouthpiece - eCW1 ([facility]) 4 mg 09/01/2019 12:00:00 AM EDT tablet 90 TAKE 2 TABLETS BY MOUTH EVERY 3 HOURS NEEDED MAXIMUM DAILY DOSE = 16 TABLETS TAKE 2 TABLETS BY MOUTH EVERY 3 HOURS NEEDED MAXIMUM DAILY DOSE = 16 TABLETS SOLD: 09/01/2019 [facility] Hydromorphone Hydrochloride 4 MG Oral Tablet Hydromorp nellie HCl 4 MG Hydromorphone HCl 4 MG 09/01/2019 12:00:00 AM EDT active 2 tablets eCW1 ([facility]) Hydromorphone Hydrochloride 4 MG Oral Tablet Hydromorp nellie HCl 4 MG Hydromorphone HCl 4 MG 08/28/2019 12:00:00 AM EDT active 2 tablets eCW1 ([facility]) Hydromorphone Hydrochloride 4 MG Oral Tablet Hydromorp nellie HCl 4 MG Hydromorphone HCl 4 MG 08/20/2019 12:00:00 AM EDT active 2 tablets eCW1 ([facility]) Hydromorphone Hydrochloride 4 MG Oral Tablet Hydromorp nellie HCl 4 MG Hydromorphone HCl 4 MG 08/20/2019 12:00:00 AM EDT active 2 tablets eCW1 ([facility]) 4 mg 08/20/2019 12:00:00 AM EDT tablet 112 TAKE TWO TABLETS BY MOUTH EVERY 3 HOURS NEEDED MAXIMUM DAILY DOSE = 16 TABLETS TAKE TWO TABLETS BY MOUTH EVERY 3 HOURS NEEDED MAXIMUM DAILY DOSE = 16 TABLETS SOLD: 08/20/2019 [facility] 80 mg 08/13/2019 12:00:00 AM EDT tablet,chewable 180 CHEW 2 TABLETS BY MOUTH THREE TIMES A DAY AFTER MEALS AND AT BEDTIME NEEDED FOR ABDOMINAL PAIN AND DISTENTION CHEW 2 TABLETS BY MOUTH THREE TIMES A DA Y AFTER MEALS AND AT BEDTIME NEEDED FOR ABDOMINAL PAIN AND DISTENTION SOLD: 10/29/2019 [facility] 80 mg 08/13/2019 12:00:00 AM EDT tablet,chewable 180 CHEW 2 TABLETS BY MOUTH THREE TIMES A DAY AFTER MEALS AND AT BEDTIME NEEDED FOR ABDOMINAL PAIN AND DISTENTION CHEW 2 TABLETS BY MOUTH THREE TIMES A DA Y AFTER MEALS AND AT BEDTIME NEEDED FOR ABDOMINAL PAIN AND DISTENTION SOLD: 10/08/2019 [facility] 80 mg 08/13/2019 12:00:00 AM EDT tablet,chewable 180 CHEW 2 TABLETS BY MOUTH THREE TIMES A DAY AFTER MEALS AND AT BEDTIME NEEDED FOR ABDOMINAL PAIN AND DISTENTION CHEW 2 TABLETS BY MOUTH THREE TIMES A DA Y AFTER MEALS AND AT BEDTIME NEEDED FOR ABDOMINAL PAIN AND DISTENTION SOLD: 09/21/2019 [facility] 80 mg 08/13/2019 12:00:00 AM EDT tablet,chewable 180 CHEW 2 TABLETS BY MOUTH THREE TIMES A DAY AFTER MEALS AND AT BEDTIME NEEDED FOR ABDOMINAL PAIN AND DISTENTION CHEW 2 TABLETS BY MOUTH THREE TIMES A DA Y AFTER MEALS AND AT BEDTIME NEEDED FOR ABDOMINAL PAIN AND DISTENTION SOLD: 09/02/2019 [facility] 80 mg 08/13/2019 12:00:00 AM EDT tablet,chewable 180 CHEW 2 TABLETS BY MOUTH THREE TIMES A DAY AFTER MEALS AND AT BEDTIME NEEDED FOR ABDOMINAL PAIN AND DISTENTION CHEW 2 TABLETS BY MOUTH THREE TIMES A DA Y AFTER MEALS AND AT BEDTIME NEEDED FOR ABDOMINAL PAIN AND DISTENTION SOLD: 08/13/2019 [facility] 80 mg 08/13/2019 12:00:00 AM EDT tablet,chewable 180 CHEW 2 TABLETS BY MOUTH THREE TIMES A DAY AFTER MEALS AND AT BEDTIME NEEDED FOR ABDOMINAL PAIN AND DISTENTION CHEW 2 TABLETS BY MOUTH THREE TIMES A DA Y AFTER MEALS AND AT BEDTIME NEEDED FOR ABDOMINAL PAIN AND DISTENTION SOLD: 11/18/2019 [facility] Hydromorphone Hydrochloride 4 MG Oral Tablet Hydromorp nellie HCl 4 MG Hydromorphone HCl 4 MG 08/11/2019 12:00:00 AM EDT active 2 tablets eCW1 ([facility]) Hydromorphone Hydrochloride 4 MG Oral Tablet Hydromorp nellie HCl 4 MG Hydromorphone HCl 4 MG 08/11/2019 12:00:00 AM EDT 2.0 {tablets} active Hydromorphone HCl 4 MG eCW1 ([facility]) 4 mg 08/11/2019 12:00:00 AM EDT tablet 112 TAKE 2 TABLETS BY MOUTH EVERY 3 HOURS NEEDED MAX DAILY DOSE = 16 TABLETS TAKE 2 TABLETS BY MOUTH EVERY 3 HOURS NEEDED MAX DAILY DOSE = 16 TABLETS SOLD: 08/11/2019 [facility] Hydromorphone Hydrochloride 4 MG Oral Tablet Hydromorp nellie HCl 4 MG Hydromorphone HCl 4 MG 08/11/2019 12:00:00 AM EDT 2.0 {tablets} active Hydromorphone HCl 4 MG eCW1 ([facility]) Hydromorphone Hydrochloride 4 MG Oral Tablet Hydromorp nellie HCl 4 MG Hydromorphone HCl 4 MG 08/06/2019 12:00:00 AM EDT active 2 tablets eCW1 ([facility]) 4 mg 08/06/2019 12:00:00 AM EDT tablet 32 TAKE 2 TABLETS BY MOUTH EVERY 3HRS NEEDED MAX 24 TABS/DAY TAKE 2 TABLETS BY MOUTH EVERY 3HRS NE EDED MAX 24 TABS/DAY SOLD: 08/06/2019 [facility] 150 mg 08/06/2019 12:00:00 AM EDT tablet 2 TAKE 1 TABLET BY MOUTH ONCE MAY REPEAT IN 3 DAYS TAKE 1 TABLET BY MOUTH ONCE MAY REPEAT IN 3 DAYS SOLD: 08/06/2019 [facility] 10 mg 07/30/2019 12:00:00 AM EDT capsule 120 TAKE ONE CAPSULE BY MOUTH FOUR TIMES A DAY NEEDED FOR ABDOMINAL CRAMPING TAKE ONE CAPSULE BY MOUTH FOUR TIMES A DAY NEEDED FOR ABDOMINAL CRAMPING SOLD: 07/30/2019 [facility] 10 mg 07/30/2019 12:00:00 AM EDT capsule 120 TAKE ONE CAPSULE BY MOUTH FOUR TIMES A DAY NEEDED FOR ABDOMINAL CRAMPING TAKE ONE CAPSULE BY MOUTH FOUR TIMES A DAY NEEDED FOR ABDOMINAL CRAMPING SOLD: 08/27/2019 [facility] 4 mg 07/29/2019 12:00:00 AM EDT tablet 112 TAKE 2 TABLETS BY MOUTH EVERY 3 HOURS NEEDED MAXIMUM DAILY DOSE = 16 TABLETS TAKE 2 TABLETS BY MOUTH EVERY 3 HOURS NEEDED MAXIMUM DAILY DOSE = 16 TABLETS SOLD: 07/29/2019 [facility] tizanidine 2 MG Oral Tablet Tizanidine HCl 2 MG Tizanidine H Cl 2 MG 07/28/2019 12:00:00 AM EDT active 1 tablet as needed eCW1 ([facility]) 2 mg 07/28/2019 12:00:00 AM EDT tablet 75 TAKE 1 TABLET BY MOUTH EVERY 6HRS NEEDED SPASMS & PAIN MAX=3TABS/DAY TAKE 1 TABLET BY MOUTH EVERY 6HRS NEEDED SPASMS & PAIN MAX=3TABS/DAY SOLD: 07/28/2019 [facility] Hydromorphone Hydrochloride 4 MG Oral Tablet Hydromorp nellie HCl 4 MG Hydromorphone HCl 4 MG 07/28/2019 12:00:00 AM EDT active 2 tablets eCW1 ([facility]) 0.1 % 07/27/2019 12:00:00 AM EDT cream 15 APPLY THIN LAYER TO RED AREAS ON FINGERS TWICE DAILY APPLY THIN LAYER TO RED AREAS ON FINGERS TWICE DAILY S OLD: 07/27/2019 [facility] Doxycycline Monohydrate 100 MG Oral Capsule Doxycycline [place] hydrate 100 MG 07/26/2019 12:00:00 AM EDT active 1 capsule eCW1 ([facility]) Doxycycline Monohydrate 100 MG Oral Capsule Doxycycline [place] hydrate 100 MG 07/26/2019 12:00:00 AM EDT active 1 capsule eCW1 ([facility]) 100 mg 07/26/2019 12:00:00 AM EDT capsule 20 TAKE ONE CAPSULE BY MOUTH EVERY 12 HOURS FOR 10 DAYS TAKE ONE CAPSULE BY MOUTH EVERY 12 HOURS FOR 10 DAYS S OLD: 07/26/2019 [facility] 0.1 % 07/24/2019 12:00:00 AM EDT cream 15 APPLY A THIN LAYER TO RED AREAS ON FINGERS TWO TIMES A DAY APPLY A THIN LAYER TO RED AREAS ON FINGE RS TWO TIMES A DAY SOLD: 07/24/2019 [facility] Hydromorphone Hydrochloride 4 MG Oral Tablet Hydromorp nellie HCl 4 MG Hydromorphone HCl 4 MG 07/23/2019 12:00:00 AM EDT active 2 tablets eCW1 ([facility]) 4 mg 07/23/2019 12:00:00 AM EDT tablet 32 TAKE TWO TABLETS BY MOUTH EVERY 3 HOURS NEEDED MAXIMUM DAILY DOSE = 24 TABLETS TAKE TWO TABLETS BY MOUTH EVERY 3 HOURS NEEDED MAXIMUM DAILY DOSE = 24 TABLETS SOLD: 07/23/2019 [facility] Pen Reynolds 5/16" UNK 07/22/2019 12:00:00 AM EDT active Pen Reynolds 5/16" eCW1 ([facility]) Pen Reynolds 5/16" UNK 07/22/2019 12:00:00 AM EDT active Pen Reynolds 5/16" eCW1 ([facility]) Pen Reynolds 5/16" UNK 07/22/2019 12:00:00 AM EDT active Pen Reynolds 5/16" eCW1 ([facility]) Pen Reynolds 5/16" UNK 07/22/2019 12:00:00 AM EDT active Pen Reynolds 5/16" eCW1 ([facility]) Pen Reynolds 5/16" UNK 07/22/2019 12:00:00 AM EDT active Pen Reynolds 5/16" eCW1 ([facility]) Pen Reynolds 5/16" UNK 07/22/2019 12:00:00 AM EDT active Pen Reynolds 5/16" eCW1 ([facility]) Pen Reynolds 5/16" UNK 07/22/2019 12:00:00 AM EDT active Pen Reynolds 5/16" eCW1 ([facility]) Pen Reynolds 5/16" UNK 07/22/2019 12:00:00 AM EDT active Pen Reynolds 5/16" eCW1 ([facility]) Pen Reynolds 5/16" UNK 07/22/2019 12:00:00 AM EDT active Pen Reynolds 5/16" eCW1 ([facility]) Pen Reynolds 5/16" UNK 07/22/2019 12:00:00 AM EDT active Pen Reynolds 5/16" eCW1 ([facility]) Pen Reynolds 5/16" UNK 07/22/2019 12:00:00 AM EDT active Pen Reynolds 5/16" eCW1 ([facility]) 31 gauge x 5/16" 07/22/2019 12:00:00 AM EDT needle 100 USE DIRECTED DAILY USE DIRECTED DAILY SOLD: 07/22/2019 [facility] Pen Reynolds 5/16" UNK 07/22/2019 12:00:00 AM EDT active Pen Reynolds 5/16" eCW1 ([facility]) Pen Reynolds 5/16" UNK 07/22/2019 12:00:00 AM EDT active Pen Reynolds 5/16" eCW1 ([facility]) Pen Reynolds 5/16" UNK 07/22/2019 12:00:00 AM EDT active Pen Reynolds 5/16" eCW1 ([facility]) Pen Reynolds 5/16" UNK 07/22/2019 12:00:00 AM EDT active Pen Reynolds 5/16" eCW1 ([facility]) Pen Reynolds 5/16" UNK 07/22/2019 12:00:00 AM EDT active Pen Reynolds 5/16" eCW1 ([facility]) Pen Reynolds 5/16" UNK 07/22/2019 12:00:00 AM EDT active as directed W1 ([facility]) Pen Reynolds 5/16" UNK 07/22/2019 12:00:00 AM EDT active Pen Reynolds 5/16" eCW1 ([facility]) Pen Reynolds 5/16" UNK 07/22/2019 12:00:00 AM EDT active Pen Reynolds 5/16" [facility]1 [facility] [facility] 5/16" UNK 07/22/2019 12:00:00 AM EDT active Pen Reynolds 5/16" eCW1 ([facility]) Pen Reynolds 5/16" UNK 07/22/2019 12:00:00 AM EDT active Pen Reynolds 5/16" eCW1 ([facility]) Pen Reynolds 5/16" UNK 07/22/2019 12:00:00 AM EDT active Pen Reynolds 5/16" eCW1 ([facility]) Pen Reynolds 5/16" UNK 07/22/2019 12:00:00 AM EDT active Pen Reynolds 5/16" W1 ([facility]) Pen Reynolds 5/16" UNK 07/22/2019 12:00:00 AM EDT active Pen Reynolds 5/16" eCW1 ([facility]) Pen Reynolds 5/16" UNK 07/22/2019 12:00:00 AM EDT active Pen Reynolds 5/16" W1 ([facility]) Pen Reynolds 5/16" UNK 07/22/2019 12:00:00 AM EDT active Pen Reynolds 5/16" eCW1 ([facility]) Pen Reynolds 5/16" UNK 07/22/2019 12:00:00 AM EDT active Pen Reynolds 5/16" eCW1 ([facility]) Pen Reynolds 5/16" UNK 07/22/2019 12:00:00 AM EDT active Pen Reynolds 5/16" eCW1 ([facility]) Pen Reynolds 5/16" UNK 07/22/2019 12:00:00 AM EDT active as directed W1 ([facility]) Pen Reynolds 5/16" UNK 07/22/2019 12:00:00 AM EDT active Pen Reynolds 5/16" W1 ([facility]) Pen Reynolds 5/16" UNK 07/22/2019 12:00:00 AM EDT active Pen Reynolds 5/16" eCW1 ([facility]) Pen Reynolds 5/16" UNK 07/22/2019 12:00:00 AM EDT active Pen Reynolds 5/16" eCW1 ([facility]) Pen Reynolds 5/16" UNK 07/22/2019 12:00:00 AM EDT active Pen Reynolds 5/16" eCW1 ([facility]) Pen Reynolds 5/16" UNK 07/22/2019 12:00:00 AM EDT active Pen Reynolds 5/16" eCW1 ([facility]) Pen Reynolds 5/16" UNK 07/22/2019 12:00:00 AM EDT active Pen Reynolds 5/16" W1 ([facility]) Pen Reynolds 5/16" UNK 07/22/2019 12:00:00 AM EDT active Pen Reynolds 5/16" W1 ([facility]) Pen Reynolds 5/16" UNK 07/22/2019 12:00:00 AM EDT active Pen Reynolds 5/16" W1 ([facility]) Pen Reynolds 5/16" UNK 07/22/2019 12:00:00 AM EDT active as directed W1 ([facility]) Pen Reynolds 5/16" UNK 07/22/2019 12:00:00 AM EDT active Pen Reynolds 5/16" eCW1 ([facility]) Pen Reynolds 5/16" UNK 07/22/2019 12:00:00 AM EDT active Pen Reynolds 5/16" W1 ([facility]) Pen Reynolds 5/16" UNK 07/22/2019 12:00:00 AM EDT active Pen Reynolds 5/16" eCW1 ([facility]) Pen Reynolds 5/16" UNK 07/22/2019 12:00:00 AM EDT active Pen Reynolds 5/16" eCW1 ([facility]) Pen Reynolds 5/16" UNK 07/22/2019 12:00:00 AM EDT active Pen Reynolds 5/16" W1 ([facility]) Pen Reynolds 5/16" UNK 07/22/2019 12:00:00 AM EDT active Pen Reynolds 5/16" eCW1 ([facility]) Pen Reynolds 5/16" UNK 07/22/2019 12:00:00 AM EDT active Pen Reynolds 5/16" eCW1 ([facility]) Pen Reynolds 5/16" UNK 07/22/2019 12:00:00 AM EDT active Pen Reynolds 5/16" eCW1 ([facility]) Pen Reynolds 5/16" UNK 07/22/2019 12:00:00 AM EDT active Pen Reynolds 5/16" eCW1 ([facility]) Pen Reynolds 5/16" UNK 07/22/2019 12:00:00 AM EDT active Pen Reynolds 5/16" eCW1 ([facility]) Pen Reynolds 5/16" UNK 07/22/2019 12:00:00 AM EDT active as directed W1 ([facility]) Pen Reynolds 5/16" UNK 07/22/2019 12:00:00 AM EDT active Pen Reynolds 5/16" eCW1 ([facility]) Pen Reynolds 5/16" UNK 07/22/2019 12:00:00 AM EDT active as directed eCW1 ([facility]) Pen Reynolds 5/16" UNK 07/22/2019 12:00:00 AM EDT active Pen Reynolds 5/16" eCW1 ([facility]) Pen Reynolds 5/16" UNK 07/22/2019 12:00:00 AM EDT active Pen Reynolds 5/16" eCW1 ([facility]) Pen Reynolds 5/16" UNK 07/22/2019 12:00:00 AM EDT active Pen Reynolds 5/16" eCW1 ([facility]) Pen Reynolds 5/16" UNK 07/22/2019 12:00:00 AM EDT active Pen Reynolds 5/16" eCW1 ([facility]) Pen Reynolds 5/16" UNK 07/22/2019 12:00:00 AM EDT active Pen Reynolds 5/16" eCW1 ([facility]) Pen Reynolds 5/16" UNK 07/22/2019 12:00:00 AM EDT active Pen Reynolds 5/16" eCW1 ([facility]) Pen Reynolds 5/16" UNK 07/22/2019 12:00:00 AM EDT active Pen Reynolds 5/16" eCW1 ([facility]) Pen Reynolds 5/16" UNK 07/22/2019 12:00:00 AM EDT active Pen Reynolds 5/16" eCW1 ([facility]) Pen Reynolds 5/16" UNK 07/22/2019 12:00:00 AM EDT active Pen Reynolds 5/16" eCW1 ([facility]) Pen Reynolds 5/16" UNK 07/22/2019 12:00:00 AM EDT active Pen Reynolds 5/16" eCW1 ([facility]) Pen Reynolds 5/16" UNK 07/22/2019 12:00:00 AM EDT active Pen Reynolds 5/16" W1 ([facility]) Pen Reynolds 5/16" UNK 07/22/2019 12:00:00 AM EDT active Pen Reynolds 5/16" eCW1 ([facility]) Pen Reynolds 5/16" UNK 07/22/2019 12:00:00 AM EDT active Pen Reynolds 5/16" eCW1 ([facility]) Pen Reynolds 5/16" UNK 07/22/2019 12:00:00 AM EDT active Pen Reynolds 5/16" eCW1 ([facility]) Pen Reynolds 5/16" UNK 07/22/2019 12:00:00 AM EDT active Pen Reynolds 5/16" eCW1 ([facility]) Pen Reynolds 5/16" UNK 07/22/2019 12:00:00 AM EDT active Pen Reynolds 5/16" eCW1 ([facility]) Pen Reynolds 5/16" UNK 07/22/2019 12:00:00 AM EDT active Pen Reynolds 5/16" eCW1 ([facility]) Pen Reynolds 5/16" UNK 07/22/2019 12:00:00 AM EDT active Pen Reynolds 5/16" eCW1 ([facility]) Pen Reynolds 5/16" UNK 07/22/2019 12:00:00 AM EDT active Pen Reynolds 5/16" eCW1 ([facility]) Pen Reynolds 5/16" UNK 07/22/2019 12:00:00 AM EDT active Pen Reynolds 5/16" eCW1 ([facility]) Pen Reynolds 5/16" UNK 07/22/2019 12:00:00 AM EDT active Pen Reynolds 5/16" eCW1 ([facility]) Pen Reynolds 5/16" UNK 07/22/2019 12:00:00 AM EDT active Pen Reynolds 5/16" eCW1 ([facility]) Pen Reynolds 5/16" UNK 07/22/2019 12:00:00 AM EDT active Pen Reynolds 5/16" eCW1 ([facility]) Pen Reynolds 5/16" UNK 07/22/2019 12:00:00 AM EDT active Pen Reynolds 5/16" eCW1 ([facility]) Pen Reynolds 5/16" UNK 07/22/2019 12:00:00 AM EDT active Pen Reynolds 5/16" eCW1 ([facility]) Pen Reynolds 5/16" UNK 07/22/2019 12:00:00 AM EDT active Pen Reynolds 5/16" eCW1 ([facility]) Pen Reynolds 5/16" UNK 07/22/2019 12:00:00 AM EDT active Pen Reynolds 5/16" eCW1 ([facility]) Levemir Flex Touch 100 UNIT/ML UNK 07/16/2019 12:00:00 AM EDT active Levemir Flex Touch 100 UNIT/ML eCW1 ([facility]) Levemir Flex Touch 100 UNIT/ML UNK 07/16/2019 12:00:00 AM EDT active Levemir Flex Touch 100 UNIT/ML eCW1 ([facility]) Levemir Flex Touch 100 UNIT/ML UNK 07/16/2019 12:00:00 AM EDT active Levemir Flex Touch 100 UNIT/ML eCW1 ([facility]) Levemir Flex Touch 100 UNIT/ML UNK 07/16/2019 12:00:00 AM EDT active Levemir Flex Touch 100 UNIT/ML eCW1 ([facility]) Levemir Flex Touch 100 UNIT/ML UNK 07/16/2019 12:00:00 AM EDT active Levemir Flex Touch 100 UNIT/ML eCW1 ([facility]) Levemir Flex Touch 100 UNIT/ML UNK 07/16/2019 12:00:00 AM EDT active Levemir Flex Touch 100 UNIT/ML eCW1 ([facility]) Levemir Flex Touch 100 UNIT/ML UNK 07/16/2019 12:00:00 AM EDT active Levemir Flex Touch 100 UNIT/ML eCW1 ([facility]) 100 unit/mL (3 mL) 07/16/2019 12:00:00 AM EDT insulin pen 15 INJECT 10 UNITS UNDER THE SKIN EVERY MORNING INJECT 10 UNITS UNDER THE SKIN EVERY MORNING SOLD: 07/16/2019 [facility] 0.1 % 07/16/2019 12:00:00 AM EDT cream 15 APPLY THIN LAYER TO RED AREAS ON FINGERS TWICE A DAY APPLY THIN LAYER TO RED AREAS ON FINGERS TWICE A DAY S OLD: 04/24/2020 [facility] Levemir Flex Touch 100 UNIT/ML UNK 07/16/2019 12:00:00 AM EDT active Levemir Flex Touch 100 UNIT/ML eCW1 ([facility]) Levemir Flex Touch 100 UNIT/ML UNK 07/16/2019 12:00:00 AM EDT active Levemir Flex Touch 100 UNIT/ML eCW1 ([facility]) Levemir Flex Touch 100 UNIT/ML UNK 07/16/2019 12:00:00 AM EDT active Levemir Flex Touch 100 UNIT/ML eCW1 ([facility]) Levemir Flex Touch 100 UNIT/ML UNK 07/16/2019 12:00:00 AM EDT active Levemir Flex Touch 100 UNIT/ML eCW1 ([facility]) Levemir Flex Touch 100 UNIT/ML UNK 07/16/2019 12:00:00 AM EDT active Levemir Flex Touch 100 UNIT/ML eCW1 ([facility]) Levemir Flex Touch 100 UNIT/ML UNK 07/16/2019 12:00:00 AM EDT active 25 units eCW1 ([facility]) Levemir Flex Touch 100 UNIT/ML UNK 07/16/2019 12:00:00 AM EDT active Levemir Flex Touch 100 UNIT/ML eCW1 ([facility]) Levemir Flex Touch 100 UNIT/ML UNK 07/16/2019 12:00:00 AM EDT active Levemir Flex Touch 100 UNIT/ML eCW1 ([facility]) Levemir Flex Touch 100 UNIT/ML UNK 07/16/2019 12:00:00 AM EDT active Levemir Flex Touch 100 UNIT/ML eCW1 ([facility]) 50 mg 07/16/2019 12:00:00 AM EDT tablet 120 TAKE ONE TABLET BY MOUTH EVERY MORNING & 3 AT BEDTIME DIRECTED TAKE ONE TABLET BY MOUTH EVERY MORNING & 3 AT BEDTIME DIRECTED SOLD: 09/19/2019 [facility] Levemir Flex Touch 100 UNIT/ML UNK 07/16/2019 12:00:00 AM EDT active Levemir Flex Touch 100 UNIT/ML eCW1 ([facility]) Hydromorphone Hydrochloride 4 MG Oral Tablet Hydromorp nellie HCl 4 MG Hydromorphone HCl 4 MG 07/16/2019 12:00:00 AM EDT active 2 tablets eCW1 ([facility]) Levemir Flex Touch 100 UNIT/ML UNK 07/16/2019 12:00:00 AM EDT active Levemir Flex Touch 100 UNIT/ML eCW1 ([facility]) 4 mg/2 mL 07/16/2019 12:00:00 AM EDT solution 120 1 VIAL TWO TIMES A DAY AT LEAST 8 HOURS APART DIRECTED 1 VIAL TWO TIMES A DAY AT LEAST 8 HOURS APART DIRECTED SOLD: 09/01/2019 [facility] Levemir Flex Touch 100 UNIT/ML UNK 07/16/2019 12:00:00 AM EDT active Levemir Flex Touch 100 UNIT/ML eCW1 ([facility]) Levemir Flex Touch 100 UNIT/ML UNK 07/16/2019 12:00:00 AM EDT active Levemir Flex Touch 100 UNIT/ML eCW1 ([facility]) 0.1 % 07/16/2019 12:00:00 AM EDT cream 15 APPLY THIN LAYER TO RED AREAS ON FINGERS TWICE A DAY APPLY THIN LAYER TO RED AREAS ON FINGERS TWICE A DAY S OLD: 11/18/2019 [facility] Levemir Flex Touch 100 UNIT/ML UNK 07/16/2019 12:00:00 AM EDT active Levemir Flex Touch 100 UNIT/ML eCW1 ([facility]) Levemir Flex Touch 100 UNIT/ML UNK 07/16/2019 12:00:00 AM EDT active Levemir Flex Touch 100 UNIT/ML eCW1 ([facility]) Levemir Flex Touch 100 UNIT/ML UNK 07/16/2019 12:00:00 AM EDT active Levemir Flex Touch 100 UNIT/ML eCW1 ([facility]) Levemir Flex Touch 100 UNIT/ML UNK 07/16/2019 12:00:00 AM EDT active Levemir Flex Touch 100 UNIT/ML eCW1 ([facility]) Levemir Flex Touch 100 UNIT/ML UNK 07/16/2019 12:00:00 AM EDT active Levemir Flex Touch 100 UNIT/ML eCW1 ([facility]) Levemir Flex Touch 100 UNIT/ML UNK 07/16/2019 12:00:00 AM EDT active Levemir Flex Touch 100 UNIT/ML eCW1 ([facility]) Levemir Flex Touch 100 UNIT/ML UNK 07/16/2019 12:00:00 AM EDT active Levemir Flex Touch 100 UNIT/ML eCW1 ([facility]) Nystatin 100 UNT/MG Topical Powder Nystatin 658146 UNI T/GM Nystatin 201314 UNIT/GM 07/16/2019 12:00:00 AM EDT active 1 application eCW1 ([facility]) Levemir Flex Touch 100 UNIT/ML UNK 07/16/2019 12:00:00 AM EDT active Levemir Flex Touch 100 UNIT/ML eCW1 ([facility]) Levemir Flex Touch 100 UNIT/ML UNK 07/16/2019 12:00:00 AM EDT active Levemir Flex Touch 100 UNIT/ML eCW1 ([facility]) Levemir Flex Touch 100 UNIT/ML UNK 07/16/2019 12:00:00 AM EDT active 10 units eCW1 ([facility]) Levemir Flex Touch 100 UNIT/ML UNK 07/16/2019 12:00:00 AM EDT active Levemir Flex Touch 100 UNIT/ML eCW1 ([facility]) Levemir Flex Touch 100 UNIT/ML UNK 07/16/2019 12:00:00 AM EDT active Levemir Flex Touch 100 UNIT/ML eCW1 ([facility]) Levemir Flex Touch 100 UNIT/ML UNK 07/16/2019 12:00:00 AM EDT active Levemir Flex Touch 100 UNIT/ML eCW1 ([facility]) Levemir Flex Touch 100 UNIT/ML UNK 07/16/2019 12:00:00 AM EDT active Levemir Flex Touch 100 UNIT/ML eCW1 ([facility]) Levemir Flex Touch 100 UNIT/ML UNK 07/16/2019 12:00:00 AM EDT active Levemir Flex Touch 100 UNIT/ML eCW1 ([facility]) 50 mg 07/16/2019 12:00:00 AM EDT tablet 120 TAKE ONE TABLET BY MOUTH EVERY MORNING & 3 AT BEDTIME DIRECTED TAKE ONE TABLET BY MOUTH EVERY MORNING & 3 AT BEDTIME DIRECTED SOLD: 08/26/2019 [facility] Levemir Flex Touch 100 UNIT/ML UNK 07/16/2019 12:00:00 AM EDT active Levemir Flex Touch 100 UNIT/ML eCW1 ([facility]) Levemir Flex Touch 100 UNIT/ML UNK 07/16/2019 12:00:00 AM EDT active Levemir Flex Touch 100 UNIT/ML eCW1 ([facility]) Levemir Flex Touch 100 UNIT/ML UNK 07/16/2019 12:00:00 AM EDT active Levemir Flex Touch 100 UNIT/ML eCW1 ([facility]) Levemir Flex Touch 100 UNIT/ML UNK 07/16/2019 12:00:00 AM EDT active Levemir Flex Touch 100 UNIT/ML eCW1 ([facility]) Levemir Flex Touch 100 UNIT/ML UNK 07/16/2019 12:00:00 AM EDT active 35 units eCW1 ([facility]) Levemir Flex Touch 100 UNIT/ML UNK 07/16/2019 12:00:00 AM EDT active Levemir Flex Touch 100 UNIT/ML eCW1 ([facility]) Levemir Flex Touch 100 UNIT/ML UNK 07/16/2019 12:00:00 AM EDT active Levemir Flex Touch 100 UNIT/ML eCW1 ([facility]) Levemir Flex Touch 100 UNIT/ML UNK 07/16/2019 12:00:00 AM EDT active Levemir Flex Touch 100 UNIT/ML eCW1 ([facility]) 0.1 % 07/16/2019 12:00:00 AM EDT cream 15 APPLY THIN LAYER TO RED AREAS ON FINGERS TWICE A DAY APPLY THIN LAYER TO RED AREAS ON FINGERS TWICE A DAY S OLD: 02/13/2020 [facility] 0.1 % 07/16/2019 12:00:00 AM EDT cream 15 APPLY THIN LAYER TO RED AREAS ON FINGERS TWICE A DAY APPLY THIN LAYER TO RED AREAS ON FINGERS TWICE A DAY S OLD: 10/24/2019 [facility] Levemir Flex Touch 100 UNIT/ML UNK 07/16/2019 12:00:00 AM EDT active Levemir Flex Touch 100 UNIT/ML eCW1 ([facility]) Levemir Flex Touch 100 UNIT/ML UNK 07/16/2019 12:00:00 AM EDT active Levemir Flex Touch 100 UNIT/ML eCW1 ([facility]) Levemir Flex Touch 100 UNIT/ML UNK 07/16/2019 12:00:00 AM EDT active Levemir Flex Touch 100 UNIT/ML eCW1 ([facility]) Levemir Flex Touch 100 UNIT/ML UNK 07/16/2019 12:00:00 AM EDT active Levemir Flex Touch 100 UNIT/ML eCW1 ([facility]) Levemir Flex Touch 100 UNIT/ML UNK 07/16/2019 12:00:00 AM EDT active Levemir Flex Touch 100 UNIT/ML eCW1 ([facility]) Levemir Flex Touch 100 UNIT/ML UNK 07/16/2019 12:00:00 AM EDT active Levemir Flex Touch 100 UNIT/ML eCW1 ([facility]) Levemir Flex Touch 100 UNIT/ML UNK 07/16/2019 12:00:00 AM EDT active Levemir Flex Touch 100 UNIT/ML eCW1 ([facility]) Levemir Flex Touch 100 UNIT/ML UNK 07/16/2019 12:00:00 AM EDT active Levemir Flex Touch 100 UNIT/ML eCW1 ([facility]) Levemir Flex Touch 100 UNIT/ML UNK 07/16/2019 12:00:00 AM EDT active Levemir Flex Touch 100 UNIT/ML eCW1 ([facility]) Levemir Flex Touch 100 UNIT/ML UNK 07/16/2019 12:00:00 AM EDT active Levemir Flex Touch 100 UNIT/ML eCW1 ([facility]) Nystatin 100 UNT/MG Topical Powder 100,000 unit/gram [place]STATI N 07/16/2019 12:00:00 AM EDT powder 15 APPLY TO PERIANAL AREA TW O TIMES A DAY FOR 7 DAYS APPLY TO PERIANAL AREA TWO TIMES A DAY FOR 7 DAYS SOLD: 07/16/2019 [facility] Levemir Flex Touch 100 UNIT/ML UNK 07/16/2019 12:00:00 AM EDT active Levemir Flex Touch 100 UNIT/ML eCW1 ([facility]) Levemir Flex Touch 100 UNIT/ML UNK 07/16/2019 12:00:00 AM EDT active Levemir Flex Touch 100 UNIT/ML eCW1 ([facility]) Levemir Flex Touch 100 UNIT/ML UNK 07/16/2019 12:00:00 AM EDT active Levemir Flex Touch 100 UNIT/ML eCW1 ([facility]) Levemir Flex Touch 100 UNIT/ML UNK 07/16/2019 12:00:00 AM EDT active Levemir Flex Touch 100 UNIT/ML eCW1 ([facility]) 4 mg 07/16/2019 12:00:00 AM EDT tablet 32 TAKE 2 TABLETS BY MOUTH EVERY 3 HOURS NEEDED MAX 24TABS/DAY TAKE 2 TABLETS BY MOUTH EVERY 3 HOURS NEEDED MAX 24TABS/DAY SOLD: 07/16/2019 [facility] Levemir Flex Touch 100 UNIT/ML UNK 07/16/2019 12:00:00 AM EDT active Levemir Flex Touch 100 UNIT/ML eCW1 ([facility]) 50 mg 07/16/2019 12:00:00 AM EDT tablet 120 TAKE ONE TABLET BY MOUTH EVERY MORNING & 3 AT BEDTIME DIRECTED TAKE ONE TABLET BY MOUTH EVERY MORNING & 3 AT BEDTIME DIRECTED SOLD: 07/16/2019 [facility] Levemir Flex Touch 100 UNIT/ML UNK 07/16/2019 12:00:00 AM EDT active Levemir Flex Touch 100 UNIT/ML eCW1 ([facility]) Levemir Flex Touch 100 UNIT/ML UNK 07/16/2019 12:00:00 AM EDT active Levemir Flex Touch 100 UNIT/ML eCW1 ([facility]) Levemir Flex Touch 100 UNIT/ML UNK 07/16/2019 12:00:00 AM EDT active Levemir Flex Touch 100 UNIT/ML eCW1 ([facility]) 50 mg 07/16/2019 12:00:00 AM EDT tablet 120 TAKE ONE TABLET BY MOUTH EVERY MORNING & 3 AT BEDTIME DIRECTED TAKE ONE TABLET BY MOUTH EVERY MORNING & 3 AT BEDTIME DIRECTED SOLD: 07/29/2019 [facility] Levemir Flex Touch 100 UNIT/ML UNK 07/16/2019 12:00:00 AM EDT active Levemir Flex Touch 100 UNIT/ML eCW1 ([facility]) 4 mg/2 mL 07/16/2019 12:00:00 AM EDT solution 120 1 VIAL TWO TIMES A DAY AT LEAST 8 HOURS APART DIRECTED 1 VIAL TWO TIMES A DAY AT LEAST 8 HOURS APART DIRECTED SOLD: 07/16/2019 [facility] Le[employer]mir Flex Touch 100 UNIT/ML UNK 07/16/2019 12:00:00 AM EDT active Levemir Flex Touch 100 UNIT/ML eCW1 ([facility]) Levemir Flex Touch 100 UNIT/ML UNK 07/16/2019 12:00:00 AM EDT active Levemir Flex Touch 100 UNIT/ML eCW1 ([facility]) Levemir Flex Touch 100 UNIT/ML UNK 07/16/2019 12:00:00 AM EDT active Levemir Flex Touch 100 UNIT/ML eCW1 ([facility]) Levemir Flex Touch 100 UNIT/ML UNK 07/16/2019 12:00:00 AM EDT active Levemir Flex Touch 100 UNIT/ML eCW1 ([facility]) 50 mg 07/16/2019 12:00:00 AM EDT tablet 120 TAKE ONE TABLET BY MOUTH EVERY MORNING & 3 AT BEDTIME DIRECTED TAKE ONE TABLET BY MOUTH EVERY MORNING & 3 AT BEDTIME DIRECTED SOLD: 10/17/2019 [facility] Levemir Flex Touch 100 UNIT/ML UNK 07/16/2019 12:00:00 AM EDT active Levemir Flex Touch 100 UNIT/ML eCW1 ([facility]) Levemir Flex Touch 100 UNIT/ML UNK 07/16/2019 12:00:00 AM EDT active Levemir Flex Touch 100 UNIT/ML eCW1 ([facility]) Levemir Flex Touch 100 UNIT/ML UNK 07/16/2019 12:00:00 AM EDT active Levemir Flex Touch 100 UNIT/ML eCW1 ([facility]) 50 mg 07/16/2019 12:00:00 AM EDT tablet 120 TAKE ONE TABLET BY MOUTH EVERY MORNING & 3 AT BEDTIME DIRECTED TAKE ONE TABLET BY MOUTH EVERY MORNING & 3 AT BEDTIME DIRECTED SOLD: 11/15/2019 [facility] Levemir Flex Touch 100 UNIT/ML UNK 07/16/2019 12:00:00 AM EDT active Levemir Flex Touch 100 UNIT/ML eCW1 ([facility]) Levemir Flex Touch 100 UNIT/ML UNK 07/16/2019 12:00:00 AM EDT active 15 units eCW1 ([facility]) Levemir Flex Touch 100 UNIT/ML UNK 07/16/2019 12:00:00 AM EDT active 25 units eCW1 ([facility]) Levemir Flex Touch 100 UNIT/ML UNK 07/16/2019 12:00:00 AM EDT active Levemir Flex Touch 100 UNIT/ML eCW1 ([facility]) Levemir Flex Touch 100 UNIT/ML UNK 07/16/2019 12:00:00 AM EDT active Levemir Flex Touch 100 UNIT/ML eCW1 ([facility]) Levemir Flex Touch 100 UNIT/ML UNK 07/16/2019 12:00:00 AM EDT active Levemir Flex Touch 100 UNIT/ML eCW1 ([facility]) Levemir Flex Touch 100 UNIT/ML UNK 07/16/2019 12:00:00 AM EDT active Levemir Flex Touch 100 UNIT/ML eCW1 ([facility]) Levemir Flex Touch 100 UNIT/ML UNK 07/16/2019 12:00:00 AM EDT active Levemir Flex Touch 100 UNIT/ML eCW1 ([facility]) 0.1 % 07/16/2019 12:00:00 AM EDT cream 15 APPLY THIN LAYER TO RED AREAS ON FINGERS TWICE A DAY APPLY THIN LAYER TO RED AREAS ON FINGERS TWICE A DAY S OLD: 07/16/2019 [facility] Levemir Flex Touch 100 UNIT/ML UNK 07/16/2019 12:00:00 AM EDT active Levemir Flex Touch 100 UNIT/ML eCW1 ([facility]) 0.1 % 07/16/2019 12:00:00 AM EDT cream 15 APPLY THIN LAYER TO RED AREAS ON FINGERS TWICE A DAY APPLY THIN LAYER TO RED AREAS ON FINGERS TWICE A DAY S OLD: 09/07/2019 [facility] Hydromorphone Hydrochloride 4 MG Oral Tablet Hydromorp nellie HCl 4 MG Hydromorphone HCl 4 MG 07/09/2019 12:00:00 AM EDT active 3 tablets eCW1 ([facility]) Hydromorphone Hydrochloride 4 MG Oral Tablet Hydromorp nellie HCl 4 MG Hydromorphone HCl 4 MG 07/09/2019 12:00:00 AM EDT active 3 tablets eCW1 ([facility]) Hydromorphone Hydrochloride 4 MG Oral Tablet Hydromorp nellie HCl 4 MG Hydromorphone HCl 4 MG 07/09/2019 12:00:00 AM EDT active 2 tablets eCW1 ([facility]) Hydromorphone Hydrochloride 4 MG Oral Tablet Hydromorp nellie HCl 4 MG Hydromorphone HCl 4 MG 07/09/2019 12:00:00 AM EDT active 3 tablets eCW1 ([facility]) 4 mg 07/09/2019 12:00:00 AM EDT tablet 48 TAKE 3 TABLETS BY MOUTH EVERY 3 HOURS NEEDED MAXIMUM DAILY DOSE = 24 TABLETS TAKE 3 TABLETS BY MOUTH EVERY 3 HOURS NEEDED MAXIMUM DAILY DOSE = 24 TABLETS SOLD: 07/09/2019 [facility] Alcohol Prep Pad 70 % UNK 07/05/2019 12:00:00 AM EDT active Alcohol Prep Pad 70 % eCW1 ([facility]) Alcohol Prep Pad 70 % UNK 07/05/2019 12:00:00 AM EDT active Alcohol Prep Pad 70 % eCW1 ([facility]) Alcohol Prep Pad 70 % UNK 07/05/2019 12:00:00 AM EDT active as directed eCW1 ([facility]) Alcohol Prep Pad 70 % UNK 07/05/2019 12:00:00 AM EDT active Alcohol Prep Pad 70 % eCW1 ([facility]) Alcohol Prep Pad 70 % UNK 07/05/2019 12:00:00 AM EDT active Alcohol Prep Pad 70 % eCW1 ([facility]) Alcohol Prep Pad 70 % UNK 07/05/2019 12:00:00 AM EDT active Alcohol Prep Pad 70 % eCW1 ([facility]) Alcohol Prep Pad 70 % UNK 07/05/2019 12:00:00 AM EDT active as directed eCW1 ([facility]) Alcohol Prep Pad 70 % UNK 07/05/2019 12:00:00 AM EDT active Alcohol Prep Pad 70 % eCW1 ([facility]) Alcohol Prep Pad 70 % UNK 07/05/2019 12:00:00 AM EDT active Alcohol Prep Pad 70 % eCW1 ([facility]) Alcohol Prep Pad 70 % UNK 07/05/2019 12:00:00 AM EDT active Alcohol Prep Pad 70 % eCW1 ([facility]) Alcohol Prep Pad 70 % UNK 07/05/2019 12:00:00 AM EDT active Alcohol Prep Pad 70 % eCW1 ([facility]) Alcohol Prep Pad 70 % UNK 07/05/2019 12:00:00 AM EDT active Alcohol Prep Pad 70 % eCW1 ([facility]) Alcohol Prep Pad 70 % UNK 07/05/2019 12:00:00 AM EDT active Alcohol Prep Pad 70 % eCW1 ([facility]) Alcohol Prep Pad 70 % UNK 07/05/2019 12:00:00 AM EDT active Alcohol Prep Pad 70 % eCW1 ([facility]) Alcohol Prep Pad 70 % UNK 07/05/2019 12:00:00 AM EDT active Alcohol Prep Pad 70 % eCW1 ([facility]) Alcohol Prep Pad 70 % UNK 07/05/2019 12:00:00 AM EDT active Alcohol Prep Pad 70 % eCW1 ([facility]) Alcohol Prep Pad 70 % UNK 07/05/2019 12:00:00 AM EDT active as directed eCW1 ([facility]) Alcohol Prep Pad 70 % UNK 07/05/2019 12:00:00 AM EDT active Alcohol Prep Pad 70 % eCW1 ([facility]) Alcohol Prep Pad 70 % UNK 07/05/2019 12:00:00 AM EDT active Alcohol Prep Pad 70 % eCW1 ([facility]) Alcohol Prep Pad 70 % UNK 07/05/2019 12:00:00 AM EDT active Alcohol Prep Pad 70 % eCW1 ([facility]) Alcohol Prep Pad 70 % UNK 07/05/2019 12:00:00 AM EDT active Alcohol Prep Pad 70 % eCW1 ([facility]) Alcohol Prep Pad 70 % UNK 07/05/2019 12:00:00 AM EDT active Alcohol Prep Pad 70 % eCW1 ([facility]) Alcohol Prep Pad 70 % UNK 07/05/2019 12:00:00 AM EDT active Alcohol Prep Pad 70 % eCW1 ([facility]) Alcohol Prep Pad 70 % UNK 07/05/2019 12:00:00 AM EDT active Alcohol Prep Pad 70 % eCW1 ([facility]) Alcohol Prep Pad 70 % UNK 07/05/2019 12:00:00 AM EDT active Alcohol Prep Pad 70 % eCW1 ([facility]) Alcohol Prep Pad 70 % UNK 07/05/2019 12:00:00 AM EDT active Alcohol Prep Pad 70 % eCW1 ([facility]) Alcohol Prep Pad 70 % UNK 07/05/2019 12:00:00 AM EDT active Alcohol Prep Pad 70 % eCW1 ([facility]) Alcohol Prep Pad 70 % UNK 07/05/2019 12:00:00 AM EDT active Alcohol Prep Pad 70 % eCW1 ([facility]) Alcohol Prep Pad 70 % UNK 07/05/2019 12:00:00 AM EDT active Alcohol Prep Pad 70 % eCW1 ([facility]) Alcohol Prep Pad 70 % UNK 07/05/2019 12:00:00 AM EDT active Alcohol Prep Pad 70 % eCW1 ([facility]) Alcohol Prep Pad 70 % UNK 07/05/2019 12:00:00 AM EDT active Alcohol Prep Pad 70 % eCW1 ([facility]) Alcohol Prep Pad 70 % UNK 07/05/2019 12:00:00 AM EDT active as directed eCW1 ([facility]) Alcohol Prep Pad 70 % UNK 07/05/2019 12:00:00 AM EDT active Alcohol Prep Pad 70 % eCW1 ([facility]) Alcohol Prep Pad 70 % UNK 07/05/2019 12:00:00 AM EDT active Alcohol Prep Pad 70 % eCW1 ([facility]) Alcohol Prep Pad 70 % UNK 07/05/2019 12:00:00 AM EDT active Alcohol Prep Pad 70 % eCW1 ([facility]) Alcohol Prep Pad 70 % UNK 07/05/2019 12:00:00 AM EDT active Alcohol Prep Pad 70 % eCW1 ([facility]) Alcohol Prep Pad 70 % UNK 07/05/2019 12:00:00 AM EDT active Alcohol Prep Pad 70 % eCW1 ([facility]) Alcohol Prep Pad 70 % UNK 07/05/2019 12:00:00 AM EDT active Alcohol Prep Pad 70 % eCW1 ([facility]) Alcohol Prep Pad 70 % UNK 07/05/2019 12:00:00 AM EDT active Alcohol Prep Pad 70 % eCW1 ([facility]) Alcohol Prep Pad 70 % UNK 07/05/2019 12:00:00 AM EDT active Alcohol Prep Pad 70 % eCW1 ([facility]) Alcohol Prep Pad 70 % UNK 07/05/2019 12:00:00 AM EDT active Alcohol Prep Pad 70 % eCW1 ([facility]) Alcohol Prep Pad 70 % UNK 07/05/2019 12:00:00 AM EDT active as directed eCW1 ([facility]) Alcohol Prep Pad 70 % UNK 07/05/2019 12:00:00 AM EDT active Alcohol Prep Pad 70 % eCW1 ([facility]) Alcohol Prep Pad 70 % UNK 07/05/2019 12:00:00 AM EDT active Alcohol Prep Pad 70 % eCW1 ([facility]) Alcohol Prep Pad 70 % UNK 07/05/2019 12:00:00 AM EDT active Alcohol Prep Pad 70 % eCW1 ([facility]) Alcohol Prep Pad 70 % UNK 07/05/2019 12:00:00 AM EDT active Alcohol Prep Pad 70 % eCW1 ([facility]) Alcohol Prep Pad 70 % UNK 07/05/2019 12:00:00 AM EDT active as directed eCW1 ([facility]) Alcohol Prep Pad 70 % UNK 07/05/2019 12:00:00 AM EDT active Alcohol Prep Pad 70 % eCW1 ([facility]) Alcohol Prep Pad 70 % UNK 07/05/2019 12:00:00 AM EDT active Alcohol Prep Pad 70 % eCW1 ([facility]) Alcohol Prep Pad 70 % UNK 07/05/2019 12:00:00 AM EDT active Alcohol Prep Pad 70 % eCW1 ([facility]) Alcohol Prep Pad 70 % UNK 07/05/2019 12:00:00 AM EDT active as directed eCW1 ([facility]) Alcohol Prep Pad 70 % UNK 07/05/2019 12:00:00 AM EDT active Alcohol Prep Pad 70 % eCW1 ([facility]) Alcohol Prep Pad 70 % UNK 07/05/2019 12:00:00 AM EDT active Alcohol Prep Pad 70 % eCW1 ([facility]) Alcohol Prep Pad 70 % UNK 07/05/2019 12:00:00 AM EDT active Alcohol Prep Pad 70 % eCW1 ([facility]) Alcohol Prep Pad 70 % UNK 07/05/2019 12:00:00 AM EDT active Alcohol Prep Pad 70 % eCW1 ([facility]) Alcohol Prep Pad 70 % UNK 07/05/2019 12:00:00 AM EDT active Alcohol Prep Pad 70 % eCW1 ([facility]) Alcohol Prep Pad 70 % UNK 07/05/2019 12:00:00 AM EDT active Alcohol Prep Pad 70 % eCW1 ([facility]) Alcohol Prep Pad 70 % UNK 07/05/2019 12:00:00 AM EDT active Alcohol Prep Pad 70 % eCW1 ([facility]) Alcohol Prep Pad 70 % UNK 07/05/2019 12:00:00 AM EDT active Alcohol Prep Pad 70 % eCW1 ([facility]) Alcohol Prep Pad 70 % UNK 07/05/2019 12:00:00 AM EDT active Alcohol Prep Pad 70 % eCW1 ([facility]) Alcohol Prep Pad 70 % UNK 07/05/2019 12:00:00 AM EDT active Alcohol Prep Pad 70 % eCW1 ([facility]) Alcohol Prep Pad 70 % UNK 07/05/2019 12:00:00 AM EDT active Alcohol Prep Pad 70 % eCW1 ([facility]) Alcohol Prep Pad 70 % UNK 07/05/2019 12:00:00 AM EDT active Alcohol Prep Pad 70 % eCW1 ([facility]) Alcohol Prep Pad 70 % UNK 07/05/2019 12:00:00 AM EDT active Alcohol Prep Pad 70 % eCW1 ([facility]) Alcohol Prep Pad 70 % UNK 07/05/2019 12:00:00 AM EDT active Alcohol Prep Pad 70 % eCW1 ([facility]) Alcohol Prep Pad 70 % UNK 07/05/2019 12:00:00 AM EDT active Alcohol Prep Pad 70 % eCW1 ([facility]) Alcohol Prep Pad 70 % UNK 07/05/2019 12:00:00 AM EDT active Alcohol Prep Pad 70 % eCW1 ([facility]) Alcohol Prep Pad 70 % UNK 07/05/2019 12:00:00 AM EDT active Alcohol Prep Pad 70 % eCW1 ([facility]) Alcohol Prep Pad 70 % UNK 07/05/2019 12:00:00 AM EDT active Alcohol Prep Pad 70 % eCW1 ([facility]) Alcohol Prep Pad 70 % UNK 07/05/2019 12:00:00 AM EDT active Alcohol Prep Pad 70 % eCW1 ([facility]) Alcohol Prep Pad 70 % UNK 07/05/2019 12:00:00 AM EDT active Alcohol Prep Pad 70 % eCW1 ([facility]) Alcohol Prep Pad 70 % UNK 07/05/2019 12:00:00 AM EDT active Alcohol Prep Pad 70 % eCW1 ([facility]) Alcohol Prep Pad 70 % UNK 07/05/2019 12:00:00 AM EDT active as directed eCW1 ([facility]) Alcohol Prep Pad 70 % UNK 07/05/2019 12:00:00 AM EDT active Alcohol Prep Pad 70 % eCW1 ([facility]) Alcohol Prep Pad 70 % UNK 07/05/2019 12:00:00 AM EDT active Alcohol Prep Pad 70 % eCW1 ([facility]) Alcohol Prep Pad 70 % UNK 07/05/2019 12:00:00 AM EDT active Alcohol Prep Pad 70 % eCW1 ([facility]) Alcohol Prep Pad 70 % UNK 07/05/2019 12:00:00 AM EDT active Alcohol Prep Pad 70 % eCW1 ([facility]) Alcohol Prep Pad 70 % UNK 07/05/2019 12:00:00 AM EDT active Alcohol Prep Pad 70 % eCW1 ([facility]) Alcohol Prep Pad 70 % UNK 07/05/2019 12:00:00 AM EDT active Alcohol Prep Pad 70 % eCW1 ([facility]) Alcohol Prep Pad 70 % UNK 07/05/2019 12:00:00 AM EDT active Alcohol Prep Pad 70 % eCW1 ([facility]) Alcohol Prep Pad 70 % UNK 07/05/2019 12:00:00 AM EDT active Alcohol Prep Pad 70 % eCW1 ([facility]) 4 mg 07/04/2019 12:00:00 AM EDT tablet 48 TAKE 3 TABLETS BY MOUTH EVERY 3 HOURS NEEDED MAX 24TABS/DAY TAKE 3 TABLETS BY MOUTH EVERY 3 HOURS NEEDED MAX 24TABS/DAY SOLD: 07/04/2019 Nain rodney Metoclopramide 10 MG Oral Tablet Metoclopramide HCl 10 MG Metoclopramide HCl 10 MG 07/03/2019 12:00:00 AM EDT active Metoclopramide HCl 10 MG eCW1 ([facility]) Metoclopramide 10 MG Oral Tablet Metoclopramide HCl 10 MG Metoclopramide HCl 10 MG 07/03/2019 12:00:00 AM EDT active Metoclopramide HCl 10 MG eCW1 ([facility]) Metoclopramide 10 MG Oral Tablet Metoclopramide HCl 10 MG Metoclopramide HCl 10 MG 07/03/2019 12:00:00 AM EDT active Metoclopramide HCl 10 MG eCW1 ([facility]) ammonium lactate 120 MG/ML Topical Cream Ammonium Lact ate 12 % Ammonium Lactate 12 % 07/03/2019 12:00:00 AM EDT 1.0 {application} active Ammonium Lactate 12 % eCW1 ([facility]) Metoclopramide 10 MG Oral Tablet Metoclopramide HCl 10 MG Metoclopramide HCl 10 MG 07/03/2019 12:00:00 AM EDT active 1 tablet before meals and bedtime eCW1 ([facility]) ammonium lactate 120 MG/ML Topical Cream Ammonium Lact ate 12 % Ammonium Lactate 12 % 07/03/2019 12:00:00 AM EDT 1.0 {application} active Ammonium Lactate 12 % eCW1 ([facility]) ammonium lactate 120 MG/ML Topical Cream Ammonium Lact ate 12 % Ammonium Lactate 12 % 07/03/2019 12:00:00 AM EDT active 1 application eCW1 ([facility]) Metoclopramide 10 MG Oral Tablet Metoclopramide HCl 10 MG Metoclopramide HCl 10 MG 07/03/2019 12:00:00 AM EDT active Metoclopramide HCl 10 MG eCW1 ([facility]) ammonium lactate 120 MG/ML Topical Cream Ammonium Lact ate 12 % Ammonium Lactate 12 % 07/03/2019 12:00:00 AM EDT 1.0 {application} active Ammonium Lactate 12 % eCW1 ([facility]) ammonium lactate 120 MG/ML Topical Cream Ammonium Lact ate 12 % Ammonium Lactate 12 % 07/03/2019 12:00:00 AM EDT 1.0 {application} active Ammonium Lactate 12 % eCW1 ([facility]) Metoclopramide 10 MG Oral Tablet Metoclopramide HCl 10 MG Metoclopramide HCl 10 MG 07/03/2019 12:00:00 AM EDT active Metoclopramide HCl 10 MG eCW1 ([facility]) ammonium lactate 120 MG/ML Topical Cream Ammonium Lact ate 12 % Ammonium Lactate 12 % 07/03/2019 12:00:00 AM EDT 1.0 {application} active Ammonium Lactate 12 % eCW1 ([facility]) ammonium lactate 120 MG/ML Topical Cream Ammonium Lact ate 12 % Ammonium Lactate 12 % 07/03/2019 12:00:00 AM EDT 1.0 {application} active Ammonium Lactate 12 % eCW1 ([facility]) ammonium lactate 120 MG/ML Topical Cream Ammonium Lact ate 12 % Ammonium Lactate 12 % 07/03/2019 12:00:00 AM EDT 1.0 {application} active Ammonium Lactate 12 % eCW1 ([facility]) Metoclopramide 10 MG Oral Tablet Metoclopramide HCl 10 MG Metoclopramide HCl 10 MG 07/03/2019 12:00:00 AM EDT active Metoclopramide HCl 10 MG eCW1 ([facility]) ammonium lactate 120 MG/ML Topical Cream Ammonium Lact ate 12 % Ammonium Lactate 12 % 07/03/2019 12:00:00 AM EDT 1.0 {application} active Ammonium Lactate 12 % eCW1 ([facility]) Metoclopramide 10 MG Oral Tablet Metoclopramide HCl 10 MG Metoclopramide HCl 10 MG 07/03/2019 12:00:00 AM EDT active Metoclopramide HCl 10 MG eCW1 ([facility]) Metoclopramide 10 MG Oral Tablet Metoclopramide HCl 10 MG Metoclopramide HCl 10 MG 07/03/2019 12:00:00 AM EDT active Metoclopramide HCl 10 MG eCW1 ([facility]) ammonium lactate 120 MG/ML Topical Cream Ammonium Lact ate 12 % Ammonium Lactate 12 % 07/03/2019 12:00:00 AM EDT 1.0 {application} active Ammonium Lactate 12 % eCW1 ([facility]) ammonium lactate 120 MG/ML Topical Cream Ammonium Lact ate 12 % Ammonium Lactate 12 % 07/03/2019 12:00:00 AM EDT 1.0 {application} active Ammonium Lactate 12 % eCW1 ([facility]) Metoclopramide 10 MG Oral Tablet Metoclopramide HCl 10 MG Metoclopramide HCl 10 MG 07/03/2019 12:00:00 AM EDT active Metoclopramide HCl 10 MG eCW1 ([facility]) Metoclopramide 10 MG Oral Tablet Metoclopramide HCl 10 MG Metoclopramide HCl 10 MG 07/03/2019 12:00:00 AM EDT active Metoclopramide HCl 10 MG eCW1 ([facility]) ammonium lactate 120 MG/ML Topical Cream Ammonium Lact ate 12 % Ammonium Lactate 12 % 07/03/2019 12:00:00 AM EDT 1.0 {application} active Ammonium Lactate 12 % eCW1 ([facility]) ammonium lactate 120 MG/ML Topical Cream Ammonium Lact ate 12 % Ammonium Lactate 12 % 07/03/2019 12:00:00 AM EDT 1.0 {application} active Ammonium Lactate 12 % eCW1 ([facility]) Metoclopramide 10 MG Oral Tablet Metoclopramide HCl 10 MG Metoclopramide HCl 10 MG 07/03/2019 12:00:00 AM EDT active Metoclopramide HCl 10 MG eCW1 ([facility]) Metoclopramide 10 MG Oral Tablet Metoclopramide HCl 10 MG Metoclopramide HCl 10 MG 07/03/2019 12:00:00 AM EDT active Metoclopramide HCl 10 MG eCW1 ([facility]) ammonium lactate 120 MG/ML Topical Cream Ammonium Lact ate 12 % Ammonium Lactate 12 % 07/03/2019 12:00:00 AM EDT 1.0 {application} active Ammonium Lactate 12 % eCW1 ([facility]) ammonium lactate 120 MG/ML Topical Cream Ammonium Lact ate 12 % Ammonium Lactate 12 % 07/03/2019 12:00:00 AM EDT 1.0 {application} active Ammonium Lactate 12 % eCW1 ([facility]) ammonium lactate 120 MG/ML Topical Cream Ammonium Lact ate 12 % Ammonium Lactate 12 % 07/03/2019 12:00:00 AM EDT active 1 application eCW1 ([facility]) Metoclopramide 10 MG Oral Tablet Metoclopramide HCl 10 MG Metoclopramide HCl 10 MG 07/03/2019 12:00:00 AM EDT active Metoclopramide HCl 10 MG eCW1 ([facility]) ammonium lactate 120 MG/ML Topical Cream Ammonium Lact ate 12 % Ammonium Lactate 12 % 07/03/2019 12:00:00 AM EDT 1.0 {application} active Ammonium Lactate 12 % eCW1 ([facility]) ammonium lactate 120 MG/ML Topical Cream Ammonium Lact ate 12 % Ammonium Lactate 12 % 07/03/2019 12:00:00 AM EDT 1.0 {application} active Ammonium Lactate 12 % eCW1 ([facility]) Metoclopramide 10 MG Oral Tablet Metoclopramide HCl 10 MG Metoclopramide HCl 10 MG 07/03/2019 12:00:00 AM EDT active Metoclopramide HCl 10 MG eCW1 ([facility]) ammonium lactate 120 MG/ML Topical Cream Ammonium Lact ate 12 % Ammonium Lactate 12 % 07/03/2019 12:00:00 AM EDT 1.0 {application} active Ammonium Lactate 12 % eCW1 ([facility]) ammonium lactate 120 MG/ML Topical Cream Ammonium Lact ate 12 % Ammonium Lactate 12 % 07/03/2019 12:00:00 AM EDT 1.0 {application} active Ammonium Lactate 12 % eCW1 ([facility]) Hydromorphone Hydrochloride 4 MG Oral Tablet Hydromorp nellie HCl 4 MG Hydromorphone HCl 4 MG 07/03/2019 12:00:00 AM EDT active 3 tablets eCW1 ([facility]) Metoclopramide 10 MG Oral Tablet Metoclopramide HCl 10 MG Metoclopramide HCl 10 MG 07/03/2019 12:00:00 AM EDT active Metoclopramide HCl 10 MG eCW1 ([facility]) Metoclopramide 10 MG Oral Tablet Metoclopramide HCl 10 MG Metoclopramide HCl 10 MG 07/03/2019 12:00:00 AM EDT active Metoclopramide HCl 10 MG eCW1 ([facility]) Metoclopramide 10 MG Oral Tablet Metoclopramide HCl 10 MG Metoclopramide HCl 10 MG 07/03/2019 12:00:00 AM EDT active Metoclopramide HCl 10 MG eCW1 ([facility]) Metoclopramide 10 MG Oral Tablet Metoclopramide HCl 10 MG Metoclopramide HCl 10 MG 07/03/2019 12:00:00 AM EDT active Metoclopramide HCl 10 MG eCW1 ([facility]) Metoclopramide 10 MG Oral Tablet Metoclopramide HCl 10 MG Metoclopramide HCl 10 MG 07/03/2019 12:00:00 AM EDT active Metoclopramide HCl 10 MG eCW1 ([facility]) Metoclopramide 10 MG Oral Tablet Metoclopramide HCl 10 MG Metoclopramide HCl 10 MG 07/03/2019 12:00:00 AM EDT active 1 tablet before meals and bedtime eCW1 ([facility]) Metoclopramide 10 MG Oral Tablet Metoclopramide HCl 10 MG Metoclopramide HCl 10 MG 07/03/2019 12:00:00 AM EDT active Metoclopramide HCl 10 MG eCW1 ([facility]) ammonium lactate 120 MG/ML Topical Cream Ammonium Lact ate 12 % Ammonium Lactate 12 % 07/03/2019 12:00:00 AM EDT 1.0 {application} active Ammonium Lactate 12 % eCW1 ([facility]) ammonium lactate 120 MG/ML Topical Cream Ammonium Lact ate 12 % Ammonium Lactate 12 % 07/03/2019 12:00:00 AM EDT 1.0 {application} active Ammonium Lactate 12 % eCW1 ([facility]) ammonium lactate 120 MG/ML Topical Cream Ammonium Lact ate 12 % Ammonium Lactate 12 % 07/03/2019 12:00:00 AM EDT 1.0 {application} active Ammonium Lactate 12 % eCW1 ([facility]) Metoclopramide 10 MG Oral Tablet Metoclopramide HCl 10 MG Metoclopramide HCl 10 MG 07/03/2019 12:00:00 AM EDT active Metoclopramide HCl 10 MG eCW1 ([facility]) Metoclopramide 10 MG Oral Tablet Metoclopramide HCl 10 MG Metoclopramide HCl 10 MG 07/03/2019 12:00:00 AM EDT active Metoclopramide HCl 10 MG eCW1 ([facility]) ammonium lactate 120 MG/ML Topical Cream Ammonium Lact ate 12 % Ammonium Lactate 12 % 07/03/2019 12:00:00 AM EDT 1.0 {application} active Ammonium Lactate 12 % eCW1 ([facility]) Metoclopramide 10 MG Oral Tablet Metoclopramide HCl 10 MG Metoclopramide HCl 10 MG 07/03/2019 12:00:00 AM EDT active Metoclopramide HCl 10 MG eCW1 ([facility]) Metoclopramide 10 MG Oral Tablet Metoclopramide HCl 10 MG Metoclopramide HCl 10 MG 07/03/2019 12:00:00 AM EDT active Metoclopramide HCl 10 MG eCW1 ([facility]) Hydromorphone Hydrochloride 4 MG Oral Tablet Hydromorp nellie HCl 4 MG Hydromorphone HCl 4 MG 07/03/2019 12:00:00 AM EDT active 3 tablets eCW1 ([facility]) ammonium lactate 120 MG/ML Topical Cream Ammonium Lact ate 12 % Ammonium Lactate 12 % 07/03/2019 12:00:00 AM EDT 1.0 {application} active Ammonium Lactate 12 % eCW1 ([facility]) ammonium lactate 120 MG/ML Topical Cream Ammonium Lact ate 12 % Ammonium Lactate 12 % 07/03/2019 12:00:00 AM EDT 1.0 {application} active Ammonium Lactate 12 % eCW1 ([facility]) Metoclopramide HCl 5 MG/5ML Metoclopramide HCl 5 MG/5ML 06/13 12:00:00 AM EDT suspended 10 mg (10ml) e CW1 ([facility]) ammonium lactate 120 MG/ML Topical Cream Ammonium Lact ate 12 % Ammonium Lactate 12 % 07/03/2019 12:00:00 AM EDT 1.0 {application} active Ammonium Lactate 12 % eCW1 ([facility]) Metoclopramide 10 MG Oral Tablet Metoclopramide HCl 10 MG Metoclopramide HCl 10 MG 07/03/2019 12:00:00 AM EDT active Metoclopramide HCl 10 MG eCW1 ([facility]) Metoclopramide 10 MG Oral Tablet Metoclopramide HCl 10 MG Metoclopramide HCl 10 MG 07/03/2019 12:00:00 AM EDT active Metoclopramide HCl 10 MG eCW1 ([facility]) Metoclopramide 10 MG Oral Tablet Metoclopramide HCl 10 MG Metoclopramide HCl 10 MG 07/03/2019 12:00:00 AM EDT active Metoclopramide HCl 10 MG eCW1 ([facility]) ammonium lactate 120 MG/ML Topical Cream Ammonium Lact ate 12 % Ammonium Lactate 12 % 07/03/2019 12:00:00 AM EDT 1.0 {application} active Ammonium Lactate 12 % eCW1 ([facility]) Metoclopramide 10 MG Oral Tablet Metoclopramide HCl 10 MG Metoclopramide HCl 10 MG 07/03/2019 12:00:00 AM EDT active Metoclopramide HCl 10 MG eCW1 ([facility]) Metoclopramide 10 MG Oral Tablet Metoclopramide HCl 10 MG Metoclopramide HCl 10 MG 07/03/2019 12:00:00 AM EDT active Metoclopramide HCl 10 MG eCW1 ([facility]) ammonium lactate 120 MG/ML Topical Cream Ammonium Lact ate 12 % Ammonium Lactate 12 % 07/03/2019 12:00:00 AM EDT 1.0 {application} active Ammonium Lactate 12 % eCW1 ([facility]) Metoclopramide 10 MG Oral Tablet Metoclopramide HCl 10 MG Metoclopramide HCl 10 MG 07/03/2019 12:00:00 AM EDT active Metoclopramide HCl 10 MG eCW1 ([facility]) Metoclopramide 10 MG Oral Tablet Metoclopramide HCl 10 MG Metoclopramide HCl 10 MG 07/03/2019 12:00:00 AM EDT active Metoclopramide HCl 10 MG eCW1 ([facility]) ammonium lactate 120 MG/ML Topical Cream Ammonium Lact ate 12 % Ammonium Lactate 12 % 07/03/2019 12:00:00 AM EDT 1.0 {application} active Ammonium Lactate 12 % eCW1 ([facility]) Metoclopramide 10 MG Oral Tablet Metoclopramide HCl 10 MG Metoclopramide HCl 10 MG 07/03/2019 12:00:00 AM EDT active Metoclopramide HCl 10 MG eCW1 ([facility]) Metoclopramide 10 MG Oral Tablet Metoclopramide HCl 10 MG Metoclopramide HCl 10 MG 07/03/2019 12:00:00 AM EDT active Metoclopramide HCl 10 MG eCW1 ([facility]) Metoclopramide 10 MG Oral Tablet Metoclopramide HCl 10 MG Metoclopramide HCl 10 MG 07/03/2019 12:00:00 AM EDT active Metoclopramide HCl 10 MG eCW1 ([facility]) ammonium lactate 120 MG/ML Topical Cream Ammonium Lact ate 12 % Ammonium Lactate 12 % 07/03/2019 12:00:00 AM EDT 1.0 {application} active Ammonium Lactate 12 % eCW1 ([facility]) Metoclopramide 10 MG Oral Tablet Metoclopramide HCl 10 MG Metoclopramide HCl 10 MG 07/03/2019 12:00:00 AM EDT active 1 tablet before meals and bedtime eCW1 ([facility]) ammonium lactate 120 MG/ML Topical Cream Ammonium Lact ate 12 % Ammonium Lactate 12 % 07/03/2019 12:00:00 AM EDT 1.0 {application} active Ammonium Lactate 12 % eCW1 ([facility]) Metoclopramide 10 MG Oral Tablet Metoclopramide HCl 10 MG Metoclopramide HCl 10 MG 07/03/2019 12:00:00 AM EDT active Metoclopramide HCl 10 MG eCW1 ([facility]) ammonium lactate 120 MG/ML Topical Cream Ammonium Lact ate 12 % Ammonium Lactate 12 % 07/03/2019 12:00:00 AM EDT 1.0 {application} active Ammonium Lactate 12 % eCW1 ([facility]) Metoclopramide HCl 5 MG/5ML Metoclopramide HCl 5 MG/5ML 06/13 12:00:00 AM EDT active 10 mg (10ml) eCW1 ([facility]) Metoclopramide 10 MG Oral Tablet Metoclopramide HCl 10 MG Metoclopramide HCl 10 MG 07/03/2019 12:00:00 AM EDT active Metoclopramide HCl 10 MG eCW1 ([facility]) Metoclopramide 10 MG Oral Tablet Metoclopramide HCl 10 MG Metoclopramide HCl 10 MG 07/03/2019 12:00:00 AM EDT active Metoclopramide HCl 10 MG eCW1 ([facility]) ammonium lactate 120 MG/ML Topical Cream Ammonium Lact ate 12 % Ammonium Lactate 12 % 07/03/2019 12:00:00 AM EDT 1.0 {application} active Ammonium Lactate 12 % eCW1 ([facility]) ammonium lactate 120 MG/ML Topical Cream Ammonium Lact ate 12 % Ammonium Lactate 12 % 07/03/2019 12:00:00 AM EDT 1.0 {application} active Ammonium Lactate 12 % eCW1 ([facility]) Metoclopramide 10 MG Oral Tablet Metoclopramide HCl 10 MG Metoclopramide HCl 10 MG 07/03/2019 12:00:00 AM EDT active Metoclopramide HCl 10 MG eCW1 ([facility]) ammonium lactate 120 MG/ML Topical Cream Ammonium Lact ate 12 % Ammonium Lactate 12 % 07/03/2019 12:00:00 AM EDT 1.0 {application} active Ammonium Lactate 12 % eCW1 ([facility]) ammonium lactate 120 MG/ML Topical Cream Ammonium Lact ate 12 % Ammonium Lactate 12 % 07/03/2019 12:00:00 AM EDT 1.0 {application} active Ammonium Lactate 12 % eCW1 ([facility]) ammonium lactate 120 MG/ML Topical Cream Ammonium Lact ate 12 % Ammonium Lactate 12 % 07/03/2019 12:00:00 AM EDT 1.0 {application} active Ammonium Lactate 12 % eCW1 ([facility]) Metoclopramide 10 MG Oral Tablet Metoclopramide HCl 10 MG Metoclopramide HCl 10 MG 07/03/2019 12:00:00 AM EDT active Metoclopramide HCl 10 MG eCW1 ([facility]) ammonium lactate 120 MG/ML Topical Cream Ammonium Lact ate 12 % Ammonium Lactate 12 % 07/03/2019 12:00:00 AM EDT active 1 application eCW1 ([facility]) Metoclopramide 10 MG Oral Tablet Metoclopramide HCl 10 MG Metoclopramide HCl 10 MG 07/03/2019 12:00:00 AM EDT active Metoclopramide HCl 10 MG eCW1 ([facility]) Metoclopramide 10 MG Oral Tablet Metoclopramide HCl 10 MG Metoclopramide HCl 10 MG 07/03/2019 12:00:00 AM EDT active Metoclopramide HCl 10 MG eCW1 ([facility]) ammonium lactate 120 MG/ML Topical Cream Ammonium Lact ate 12 % Ammonium Lactate 12 % 07/03/2019 12:00:00 AM EDT 1.0 {application} active Ammonium Lactate 12 % eCW1 ([facility]) Metoclopramide 10 MG Oral Tablet Metoclopramide HCl 10 MG Metoclopramide HCl 10 MG 07/03/2019 12:00:00 AM EDT active Metoclopramide HCl 10 MG eCW1 ([facility]) Metoclopramide HCl 5 MG/5ML Metoclopramide HCl 5 MG/5ML 06/13 12:00:00 AM EDT suspended 10 mg (10ml) e CW1 ([facility]) ammonium lactate 120 MG/ML Topical Cream Ammonium Lact ate 12 % Ammonium Lactate 12 % 07/03/2019 12:00:00 AM EDT 1.0 {application} active Ammonium Lactate 12 % eCW1 ([facility]) Metoclopramide HCl 5 MG/5ML Metoclopramide HCl 5 MG/5ML 06/13 12:00:00 AM EDT suspended 10 mg (10ml) e CW1 ([facility]) ammonium lactate 120 MG/ML Topical Cream Ammonium Lact ate 12 % Ammonium Lactate 12 % 07/03/2019 12:00:00 AM EDT 1.0 {application} active Ammonium Lactate 12 % eCW1 ([facility]) ammonium lactate 120 MG/ML Topical Cream Ammonium Lact ate 12 % Ammonium Lactate 12 % 07/03/2019 12:00:00 AM EDT 1.0 {application} active Ammonium Lactate 12 % eCW1 ([facility]) ammonium lactate 120 MG/ML Topical Cream Ammonium Lact ate 12 % Ammonium Lactate 12 % 07/03/2019 12:00:00 AM EDT 1.0 {application} active Ammonium Lactate 12 % eCW1 ([facility]) Metoclopramide 10 MG Oral Tablet Metoclopramide HCl 10 MG Metoclopramide HCl 10 MG 07/03/2019 12:00:00 AM EDT active Metoclopramide HCl 10 MG eCW1 ([facility]) Metoclopramide 10 MG Oral Tablet Metoclopramide HCl 10 MG Metoclopramide HCl 10 MG 07/03/2019 12:00:00 AM EDT active Metoclopramide HCl 10 MG eCW1 ([facility]) Metoclopramide 10 MG Oral Tablet Metoclopramide HCl 10 MG Metoclopramide HCl 10 MG 07/03/2019 12:00:00 AM EDT active Metoclopramide HCl 10 MG [facility]1 [facility] [facility] Metoclopramide 10 MG Oral Tablet Metoclopramide HCl 10 MG Metoclopramide HCl 10 MG 07/03/2019 12:00:00 AM EDT active Metoclopramide HCl 10 MG eCW1 ([facility]) ammonium lactate 120 MG/ML Topical Cream Ammonium Lact ate 12 % Ammonium Lactate 12 % 07/03/2019 12:00:00 AM EDT 1.0 {application} active Ammonium Lactate 12 % eCW1 ([facility]) ammonium lactate 120 MG/ML Topical Cream Ammonium Lact ate 12 % Ammonium Lactate 12 % 07/03/2019 12:00:00 AM EDT 1.0 {application} active Ammonium Lactate 12 % eCW1 ([facility]) Metoclopramide 10 MG Oral Tablet Metoclopramide HCl 10 MG Metoclopramide HCl 10 MG 07/03/2019 12:00:00 AM EDT active Metoclopramide HCl 10 MG eCW1 ([facility]) ammonium lactate 120 MG/ML Topical Cream Ammonium Lact ate 12 % Ammonium Lactate 12 % 07/03/2019 12:00:00 AM EDT 1.0 {application} active Ammonium Lactate 12 % eCW1 ([facility]) Metoclopramide HCl 5 MG/5ML Metoclopramide HCl 5 MG/5ML 06/13 12:00:00 AM EDT suspended 10 mg (10ml) e CW1 ([facility]) Metoclopramide 10 MG Oral Tablet Metoclopramide HCl 10 MG Metoclopramide HCl 10 MG 07/03/2019 12:00:00 AM EDT active Metoclopramide HCl 10 MG eCW1 ([facility]) ammonium lactate 120 MG/ML Topical Cream Ammonium Lact ate 12 % Ammonium Lactate 12 % 07/03/2019 12:00:00 AM EDT 1.0 {application} active Ammonium Lactate 12 % eCW1 ([facility]) Metoclopramide 10 MG Oral Tablet Metoclopramide HCl 10 MG Metoclopramide HCl 10 MG 07/03/2019 12:00:00 AM EDT active Metoclopramide HCl 10 MG eCW1 ([facility]) Metoclopramide 10 MG Oral Tablet Metoclopramide HCl 10 MG Metoclopramide HCl 10 MG 07/03/2019 12:00:00 AM EDT active Metoclopramide HCl 10 MG eCW1 ([facility]) ammonium lactate 120 MG/ML Topical Cream Ammonium Lact ate 12 % Ammonium Lactate 12 % 07/03/2019 12:00:00 AM EDT 1.0 {application} active Ammonium Lactate 12 % eCW1 ([facility]) ammonium lactate 120 MG/ML Topical Cream Ammonium Lact ate 12 % Ammonium Lactate 12 % 07/03/2019 12:00:00 AM EDT 1.0 {application} active Ammonium Lactate 12 % eCW1 ([facility]) Metoclopramide 10 MG Oral Tablet Metoclopramide HCl 10 MG Metoclopramide HCl 10 MG 07/03/2019 12:00:00 AM EDT active Metoclopramide HCl 10 MG eCW1 ([facility]) Metoclopramide 10 MG Oral Tablet Metoclopramide HCl 10 MG Metoclopramide HCl 10 MG 07/03/2019 12:00:00 AM EDT active Metoclopramide HCl 10 MG eCW1 ([facility]) ammonium lactate 120 MG/ML Topical Cream Ammonium Lact ate 12 % Ammonium Lactate 12 % 07/03/2019 12:00:00 AM EDT active 1 application eCW1 ([facility]) Metoclopramide 10 MG Oral Tablet Metoclopramide HCl 10 MG Metoclopramide HCl 10 MG 07/03/2019 12:00:00 AM EDT active Metoclopramide HCl 10 MG eCW1 ([facility]) ammonium lactate 120 MG/ML Topical Cream Ammonium Lact ate 12 % Ammonium Lactate 12 % 07/03/2019 12:00:00 AM EDT 1.0 {application} active Ammonium Lactate 12 % eCW1 ([facility]) ammonium lactate 120 MG/ML Topical Cream Ammonium Lact ate 12 % Ammonium Lactate 12 % 07/03/2019 12:00:00 AM EDT 1.0 {application} active Ammonium Lactate 12 % eCW1 ([facility]) Metoclopramide 10 MG Oral Tablet Metoclopramide HCl 10 MG Metoclopramide HCl 10 MG 07/03/2019 12:00:00 AM EDT active Metoclopramide HCl 10 MG eCW1 ([facility]) Metoclopramide 10 MG Oral Tablet Metoclopramide HCl 10 MG Metoclopramide HCl 10 MG 07/03/2019 12:00:00 AM EDT active Metoclopramide HCl 10 MG eCW1 ([facility]) ammonium lactate 120 MG/ML Topical Cream Ammonium Lact ate 12 % Ammonium Lactate 12 % 07/03/2019 12:00:00 AM EDT 1.0 {application} active Ammonium Lactate 12 % eCW1 ([facility]) Metoclopramide 10 MG Oral Tablet Metoclopramide HCl 10 MG Metoclopramide HCl 10 MG 07/03/2019 12:00:00 AM EDT active Metoclopramide HCl 10 MG eCW1 ([facility]) Metoclopramide 10 MG Oral Tablet Metoclopramide HCl 10 MG Metoclopramide HCl 10 MG 07/03/2019 12:00:00 AM EDT active Metoclopramide HCl 10 MG eCW1 ([facility]) Metoclopramide 10 MG Oral Tablet Metoclopramide HCl 10 MG Metoclopramide HCl 10 MG 07/03/2019 12:00:00 AM EDT active Metoclopramide HCl 10 MG eCW1 ([facility]) ammonium lactate 120 MG/ML Topical Cream Ammonium Lact ate 12 % Ammonium Lactate 12 % 07/03/2019 12:00:00 AM EDT 1.0 {application} active Ammonium Lactate 12 % eCW1 ([facility]) ammonium lactate 120 MG/ML Topical Cream Ammonium Lact ate 12 % Ammonium Lactate 12 % 07/03/2019 12:00:00 AM EDT 1.0 {application} active Ammonium Lactate 12 % eCW1 ([facility]) Metoclopramide 10 MG Oral Tablet Metoclopramide HCl 10 MG Metoclopramide HCl 10 MG 07/03/2019 12:00:00 AM EDT active Metoclopramide HCl 10 MG eCW1 ([facility]) ammonium lactate 120 MG/ML Topical Cream Ammonium Lact ate 12 % Ammonium Lactate 12 % 07/03/2019 12:00:00 AM EDT 1.0 {application} active Ammonium Lactate 12 % eCW1 ([facility]) ammonium lactate 120 MG/ML Topical Cream Ammonium Lact ate 12 % Ammonium Lactate 12 % 07/03/2019 12:00:00 AM EDT 1.0 {application} active Ammonium Lactate 12 % eCW1 ([facility]) ammonium lactate 120 MG/ML Topical Cream Ammonium Lact ate 12 % Ammonium Lactate 12 % 07/03/2019 12:00:00 AM EDT 1.0 {application} active Ammonium Lactate 12 % eCW1 ([facility]) ammonium lactate 120 MG/ML Topical Cream Ammonium Lact ate 12 % Ammonium Lactate 12 % 07/03/2019 12:00:00 AM EDT 1.0 {application} active Ammonium Lactate 12 % eCW1 ([facility]) ammonium lactate 120 MG/ML Topical Cream Ammonium Lact ate 12 % Ammonium Lactate 12 % 07/03/2019 12:00:00 AM EDT 1.0 {application} active Ammonium Lactate 12 % eCW1 ([facility]) ammonium lactate 120 MG/ML Topical Cream Ammonium Lact ate 12 % Ammonium Lactate 12 % 07/03/2019 12:00:00 AM EDT active 1 application eCW1 ([facility]) ammonium lactate 120 MG/ML Topical Cream Ammonium Lact ate 12 % Ammonium Lactate 12 % 07/03/2019 12:00:00 AM EDT active 1 application eCW1 ([facility]) Metoclopramide 10 MG Oral Tablet Metoclopramide HCl 10 MG Metoclopramide HCl 10 MG 07/03/2019 12:00:00 AM EDT active Metoclopramide HCl 10 MG eCW1 ([facility]) ammonium lactate 120 MG/ML Topical Cream Ammonium Lact ate 12 % Ammonium Lactate 12 % 07/03/2019 12:00:00 AM EDT 1.0 {application} active Ammonium Lactate 12 % eCW1 ([facility]) Metoclopramide 10 MG Oral Tablet Metoclopramide HCl 10 MG Metoclopramide HCl 10 MG 07/03/2019 12:00:00 AM EDT active Metoclopramide HCl 10 MG eCW1 ([facility]) ammonium lactate 120 MG/ML Topical Cream Ammonium Lact ate 12 % Ammonium Lactate 12 % 07/03/2019 12:00:00 AM EDT 1.0 {application} active Ammonium Lactate 12 % eCW1 ([facility]) Metoclopramide 10 MG Oral Tablet Metoclopramide HCl 10 MG Metoclopramide HCl 10 MG 07/03/2019 12:00:00 AM EDT active Metoclopramide HCl 10 MG eCW1 ([facility]) ammonium lactate 120 MG/ML Topical Cream Ammonium Lact ate 12 % Ammonium Lactate 12 % 07/03/2019 12:00:00 AM EDT 1.0 {application} active Ammonium Lactate 12 % eCW1 ([facility]) ammonium lactate 120 MG/ML Topical Cream Ammonium Lact ate 12 % Ammonium Lactate 12 % 07/03/2019 12:00:00 AM EDT active 1 application eCW1 ([facility]) ammonium lactate 120 MG/ML Topical Cream Ammonium Lact ate 12 % Ammonium Lactate 12 % 07/03/2019 12:00:00 AM EDT 1.0 {application} active Ammonium Lactate 12 % eCW1 ([facility]) Metoclopramide 10 MG Oral Tablet Metoclopramide HCl 10 MG Metoclopramide HCl 10 MG 07/03/2019 12:00:00 AM EDT active 1 tablet before meals and bedtime eCW1 ([facility]) Metoclopramide 10 MG Oral Tablet Metoclopramide HCl 10 MG Metoclopramide HCl 10 MG 07/03/2019 12:00:00 AM EDT active Metoclopramide HCl 10 MG eCW1 ([facility]) ammonium lactate 120 MG/ML Topical Cream Ammonium Lact ate 12 % Ammonium Lactate 12 % 07/03/2019 12:00:00 AM EDT 1.0 {application} active Ammonium Lactate 12 % eCW1 ([facility]) ammonium lactate 120 MG/ML Topical Cream Ammonium Lact ate 12 % Ammonium Lactate 12 % 07/03/2019 12:00:00 AM EDT 1.0 {application} active Ammonium Lactate 12 % eCW1 ([facility]) Metoclopramide 10 MG Oral Tablet Metoclopramide HCl 10 MG Metoclopramide HCl 10 MG 07/03/2019 12:00:00 AM EDT active Metoclopramide HCl 10 MG eCW1 ([facility]) Metoclopramide 10 MG Oral Tablet Metoclopramide HCl 10 MG Metoclopramide HCl 10 MG 07/03/2019 12:00:00 AM EDT active Metoclopramide HCl 10 MG eCW1 ([facility]) ammonium lactate 120 MG/ML Topical Cream Ammonium Lact ate 12 % Ammonium Lactate 12 % 07/03/2019 12:00:00 AM EDT 1.0 {application} active Ammonium Lactate 12 % eCW1 ([facility]) ammonium lactate 120 MG/ML Topical Cream Ammonium Lact ate 12 % Ammonium Lactate 12 % 07/03/2019 12:00:00 AM EDT 1.0 {application} active Ammonium Lactate 12 % eCW1 ([facility]) Metoclopramide 10 MG Oral Tablet Metoclopramide HCl 10 MG Metoclopramide HCl 10 MG 07/03/2019 12:00:00 AM EDT active 1 tablet before meals and bedtime eCW1 ([facility]) Metoclopramide 10 MG Oral Tablet Metoclopramide HCl 10 MG Metoclopramide HCl 10 MG 07/03/2019 12:00:00 AM EDT active Metoclopramide HCl 10 MG eCW1 ([facility]) Metoclopramide 10 MG Oral Tablet Metoclopramide HCl 10 MG Metoclopramide HCl 10 MG 07/03/2019 12:00:00 AM EDT active 1 tablet before meals and bedtime eCW1 ([facility]) Metoclopramide 10 MG Oral Tablet Metoclopramide HCl 10 MG Metoclopramide HCl 10 MG 07/03/2019 12:00:00 AM EDT active 1 tablet before meals and bedtime eCW1 ([facility]) Metoclopramide 10 MG Oral Tablet Metoclopramide HCl 10 MG Metoclopramide HCl 10 MG 07/03/2019 12:00:00 AM EDT active Metoclopramide HCl 10 MG eCW1 ([facility]) ammonium lactate 120 MG/ML Topical Cream Ammonium Lact ate 12 % Ammonium Lactate 12 % 07/03/2019 12:00:00 AM EDT active 1 application eCW1 ([facility]) ammonium lactate 120 MG/ML Topical Cream Ammonium Lact ate 12 % Ammonium Lactate 12 % 07/03/2019 12:00:00 AM EDT 1.0 {application} active Ammonium Lactate 12 % eCW1 ([facility]) ammonium lactate 120 MG/ML Topical Cream Ammonium Lact ate 12 % Ammonium Lactate 12 % 07/03/2019 12:00:00 AM EDT 1.0 {application} active Ammonium Lactate 12 % eCW1 ([facility]) ammonium lactate 120 MG/ML Topical Cream Ammonium Lact ate 12 % Ammonium Lactate 12 % 07/03/2019 12:00:00 AM EDT 1.0 {application} active Ammonium Lactate 12 % eCW1 ([facility]) ammonium lactate 120 MG/ML Topical Cream Ammonium Lact ate 12 % Ammonium Lactate 12 % 07/03/2019 12:00:00 AM EDT 1.0 {application} active Ammonium Lactate 12 % eCW1 ([facility]) Metoclopramide 10 MG Oral Tablet Metoclopramide HCl 10 MG Metoclopramide HCl 10 MG 07/03/2019 12:00:00 AM EDT active 1 tablet before meals and bedtime eCW1 ([facility]) ammonium lactate 120 MG/ML Topical Cream Ammonium Lact ate 12 % Ammonium Lactate 12 % 07/03/2019 12:00:00 AM EDT 1.0 {application} active Ammonium Lactate 12 % eCW1 ([facility]) ammonium lactate 120 MG/ML Topical Cream Ammonium Lact ate 12 % Ammonium Lactate 12 % 07/03/2019 12:00:00 AM EDT 1.0 {application} active Ammonium Lactate 12 % eCW1 ([facility]) ammonium lactate 120 MG/ML Topical Cream Ammonium Lact ate 12 % Ammonium Lactate 12 % 07/03/2019 12:00:00 AM EDT 1.0 {application} active Ammonium Lactate 12 % eCW1 ([facility]) ammonium lactate 120 MG/ML Topical Cream Ammonium Lact ate 12 % Ammonium Lactate 12 % 07/03/2019 12:00:00 AM EDT 1.0 {application} active Ammonium Lactate 12 % eCW1 ([facility]) Metoclopramide 10 MG Oral Tablet Metoclopramide HCl 10 MG Metoclopramide HCl 10 MG 07/03/2019 12:00:00 AM EDT active Metoclopramide HCl 10 MG eCW1 ([facility]) Metoclopramide 10 MG Oral Tablet Metoclopramide HCl 10 MG Metoclopramide HCl 10 MG 07/03/2019 12:00:00 AM EDT active Metoclopramide HCl 10 MG eCW1 ([facility]) Metoclopramide 10 MG Oral Tablet Metoclopramide HCl 10 MG Metoclopramide HCl 10 MG 07/03/2019 12:00:00 AM EDT active Metoclopramide HCl 10 MG eCW1 ([facility]) Metoclopramide 10 MG Oral Tablet Metoclopramide HCl 10 MG Metoclopramide HCl 10 MG 07/03/2019 12:00:00 AM EDT active Metoclopramide HCl 10 MG eCW1 ([facility]) Metoclopramide 10 MG Oral Tablet Metoclopramide HCl 10 MG Metoclopramide HCl 10 MG 07/03/2019 12:00:00 AM EDT active Metoclopramide HCl 10 MG eCW1 ([facility]) Metoclopramide 10 MG Oral Tablet Metoclopramide HCl 10 MG Metoclopramide HCl 10 MG 07/03/2019 12:00:00 AM EDT active Metoclopramide HCl 10 MG eCW1 ([facility]) 4 mg 06/25/2019 12:00:00 AM EDT tablet 168 TAKE 3 TABLETS BY MOUTH EVERY 3 HOURS NEEDED MAXIMUM DAILY DOSE = 24TABLETS TAKE 3 TABLETS BY MOUTH EVERY 3 HOURS NEEDED MAXIMUM DAILY DOSE = 24TABLETS SOLD: 06/25/2019 [facility] 25 mcg (1,000 unit) 06/25/2019 12:00:00 AM EDT tablet 30 TAKE 1 TABLET BY MOUTH EVERY DAY TAKE 1 TABLET BY MOUTH EVERY DAY SOLD: 10/07/2019 [facility] 10 mg 06/25/2019 12:00:00 AM EDT tablet 60 TAKE 1 TABLET BY MOUTH FOUR TIMES A DAY BEFORE MEALS AND AT BEDTIME FOR 15 DAYS TAKE 1 TABLET BY MOUTH FOUR TIMES A DAY BEFORE MEALS AND AT BEDTIME FOR 15 DAYS SOLD: 08/17/2019 [facility] BLOOD SUGAR DIAGNOSTIC 06/25/2019 12:00:00 AM EDT strip 200 TEST FOUR TIMES A DAY NEEDED TEST FOUR TIMES A DAY NEEDED SOLD: 09/03/2019 [facility] BLOOD SUGAR DIAGNOSTIC 06/25/2019 12:00:00 AM EDT strip 200 TEST FOUR TIMES A DAY NEEDED TEST FOUR TIMES A DAY NEEDED SOLD: 08/25/2019 [facility] 33 gauge 06/25/2019 12:00:00 AM EDT misc 100 USE DIRECTED FOUR TIMES A DAY NEEDED USE DIRECTED FOUR TIMES A DAY NEEDED SOLD: 12/31/2019 [facility] 33 gauge 06/25/2019 12:00:00 AM EDT misc 200 USE DIRECTED FOUR TIMES A DAY NEEDED USE DIRECTED FOUR TIMES A DAY NEEDED SOLD: 08/25/2019 [facility] BLOOD SUGAR DIAGNOSTIC 06/25/2019 12:00:00 AM EDT strip 100 TEST FOUR TIMES A DAY NEEDED TEST FOUR TIMES A DAY NEEDED SOLD: 11/12/2019 [facility] BLOOD SUGAR DIAGNOSTIC 06/25/2019 12:00:00 AM EDT strip 100 TEST FOUR TIMES A DAY NEEDED TEST FOUR TIMES A DAY NEEDED SOLD: 10/21/2019 [facility] 10 mg 06/25/2019 12:00:00 AM EDT tablet 60 TAKE 1 TABLET BY MOUTH FOUR TIMES A DAY BEFORE MEALS AND AT BEDTIME FOR 15 DAYS TAKE 1 TABLET BY MOUTH FOUR TIMES A DAY BEFORE MEALS AND AT BEDTIME FOR 15 DAYS SOLD: 07/31/2019 [facility] 25 mcg (1,000 unit) 06/25/2019 12:00:00 AM EDT tablet 30 TAKE 1 TABLET BY MOUTH EVERY DAY TAKE 1 TABLET BY MOUTH EVERY DAY SOLD: 08/17/2019 [facility] 33 gauge 06/25/2019 12:00:00 AM EDT misc 100 USE DIRECTED FOUR TIMES A DAY NEEDED USE DIRECTED FOUR TIMES A DAY NEEDED SOLD: 03/04/2020 [facility] 25 mcg (1,000 unit) 06/25/2019 12:00:00 AM EDT tablet 30 TAKE 1 TABLET BY MOUTH EVERY DAY TAKE 1 TABLET BY MOUTH EVERY DAY SOLD: 09/10/2019 [facility] 33 gauge 06/25/2019 12:00:00 AM EDT misc 100 USE DIRECTED FOUR TIMES A DAY NEEDED USE DIRECTED FOUR TIMES A DAY NEEDED SOLD: 10/02/2019 [facility] 25 mcg (1,000 unit) 06/25/2019 12:00:00 AM EDT tablet 30 TAKE 1 TABLET BY MOUTH EVERY DAY TAKE 1 TABLET BY MOUTH EVERY DAY SOLD: 07/20/2019 [facility] 10 mg 06/25/2019 12:00:00 AM EDT tablet 60 TAKE 1 TABLET BY MOUTH FOUR TIMES A DAY BEFORE MEALS AND AT BEDTIME FOR 15 DAYS TAKE 1 TABLET BY MOUTH FOUR TIMES A DAY BEFORE MEALS AND AT BEDTIME FOR 15 DAYS SOLD: 07/12/2019 [facility] BLOOD SUGAR DIAGNOSTIC 06/25/2019 12:00:00 AM EDT strip 100 TEST FOUR TIMES A DAY NEEDED TEST FOUR TIMES A DAY NEEDED SOLD: 12/05/2019 [facility] 10 mg 06/25/2019 12:00:00 AM EDT tablet 60 TAKE 1 TABLET BY MOUTH FOUR TIMES A DAY BEFORE MEALS AND AT BEDTIME FOR 15 DAYS TAKE 1 TABLET BY MOUTH FOUR TIMES A DAY BEFORE MEALS AND AT BEDTIME FOR 15 DAYS SOLD: 06/25/2019 [facility] 25 mcg (1,000 unit) 06/25/2019 12:00:00 AM EDT tablet 30 TAKE 1 TABLET BY MOUTH EVERY DAY TAKE 1 TABLET BY MOUTH EVERY DAY SOLD: 12/03/2019 [facility] 33 gauge 06/25/2019 12:00:00 AM EDT misc 100 USE DIRECTED FOUR TIMES A DAY NEEDED USE DIRECTED FOUR TIMES A DAY NEEDED SOLD: 02/11/2020 [facility] 25 mcg (1,000 unit) 06/25/2019 12:00:00 AM EDT tablet 30 TAKE 1 TABLET BY MOUTH EVERY DAY TAKE 1 TABLET BY MOUTH EVERY DAY SOLD: 12/31/2019 [facility] BLOOD SUGAR DIAGNOSTIC 06/25/2019 12:00:00 AM EDT strip 200 TEST FOUR TIMES A DAY NEEDED TEST FOUR TIMES A DAY NEEDED SOLD: 06/25/2019 [facility] 06/25/2019 12:00:00 AM EDT misc 100 USE DIRECTED FOUR TIMES A DAY NEEDED USE DIRECTED FOUR TIMES A DAY NEEDED SOLD: 01/19/2020 [facility] BLOOD SUGAR DIAGNOSTIC 06/25/2019 12:00:00 AM EDT strip 100 TEST FOUR TIMES A DAY NEEDED TEST FOUR TIMES A DAY NEEDED SOLD: 02/10/2020 [facility] 06/25/2019 12:00:00 AM EDT misc 200 USE DIRECTED FOUR TIMES A DAY NEEDED USE DIRECTED FOUR TIMES A DAY NEEDED SOLD: 06/25/2019 [facility] BLOOD SUGAR DIAGNOSTIC 06/25/2019 12:00:00 AM EDT strip 100 TEST FOUR TIMES A DAY NEEDED TEST FOUR TIMES A DAY NEEDED SOLD: 01/18/2020 [facility] 06/25/2019 12:00:00 AM EDT misc 100 USE DIRECTED FOUR TIMES A DAY NEEDED USE DIRECTED FOUR TIMES A DAY NEEDED SOLD: 10/25/2019 [facility] 06/25/2019 12:00:00 AM EDT misc 100 USE DIRECTED FOUR TIMES A DAY NEEDED USE DIRECTED FOUR TIMES A DAY NEEDED SOLD: 11/16/2019 [facility] Cholecalciferol 1000 UNT Oral Tablet Vitamin D3 06/25/2019 12:00:00 A M EDT active [facility] ([facility] BLOOD SUGAR DIAGNOSTIC 06/25/2019 12:00:00 AM EDT strip 100 TEST FOUR TIMES A DAY NEEDED TEST FOUR TIMES A DAY NEEDED SOLD: 12/27/2019 [facility] 25 mcg (1,000 unit) 06/25/2019 12:00:00 AM EDT tablet 30 TAKE 1 TABLET BY MOUTH EVERY DAY TAKE 1 TABLET BY MOUTH EVERY DAY SOLD: 01/28/2020 [facility] BLOOD-GLUCOSE METER 06/25/2019 12:00:00 AM EDT misc 1 TESTING FOUR TIMES A DAY AND NEEDED TESTING FOUR TIMES A DAY AND NEEDED SOLD: 06/25/2019 [facility] 25 mcg (1,000 unit) 06/25/2019 12:00:00 AM EDT tablet 30 TAKE 1 TABLET BY MOUTH EVERY DAY TAKE 1 TABLET BY MOUTH EVERY DAY SOLD: 11/05/2019 [facility] 25 mcg (1,000 unit) 06/25/2019 12:00:00 AM EDT tablet 30 TAKE 1 TABLET BY MOUTH EVERY DAY TAKE 1 TABLET BY MOUTH EVERY DAY SOLD: 06/25/2019 [facility] 33 gauge 06/25/2019 12:00:00 AM EDT misc 100 USE DIRECTED FOUR TIMES A DAY NEEDED USE DIRECTED FOUR TIMES A DAY NEEDED SOLD: 12/09/2019 [facility] Glucometer UNK 06/24/2019 12:00:00 AM EDT active Glucometer eCW1 ([facility]) Test Strips - UNK 06/24/2019 12:00:00 AM EDT acti ve Test Strips - eCW1 ([facility]) Lancets Misc. - UNK 06/24/2019 12:00:00 AM EDT active Lancets Misc. - eCW1 ([facility]) Lancets Misc. - UNK 06/24/2019 12:00:00 AM EDT active Lancets Misc. - eCW1 ([facility]) Lancets Misc. - UNK 06/24/2019 12:00:00 AM EDT active Lancets Misc. - eCW1 ([facility]) Glucometer UNK 06/24/2019 12:00:00 AM EDT active testing 4 times a day and as needed eCW1 ([facility]) Lancets Misc. - UNK 06/24/2019 12:00:00 AM EDT active Lancets Misc. - eCW1 ([facility]) Glucometer UNK 06/24/2019 12:00:00 AM EDT active Glucometer eCW1 ([facility]) Lancets Misc. - UNK 06/24/2019 12:00:00 AM EDT active Lancets Misc. - eCW1 ([facility]) Test Strips - UNK 06/24/2019 12:00:00 AM EDT acti ve Test Strips - eCW1 ([facility]) Test Strips - UNK 06/24/2019 12:00:00 AM EDT acti ve Test Strips - eCW1 ([facility]) Glucometer UNK 06/24/2019 12:00:00 AM EDT active Glucometer eCW1 ([facility]) Test Strips - UNK 06/24/2019 12:00:00 AM EDT acti ve Test Strips - eCW1 ([facility]) Glucometer UNK 06/24/2019 12:00:00 AM EDT active Glucometer eCW1 ([facility]) Glucometer UNK 06/24/2019 12:00:00 AM EDT active Glucometer eCW1 ([facility]) Test Strips - UNK 06/24/2019 12:00:00 AM EDT acti ve Test Strips - eCW1 ([facility]) Lancets Misc. - UNK 06/24/2019 12:00:00 AM EDT active Lancets Misc. - eCW1 ([facility]) Glucometer UNK 06/24/2019 12:00:00 AM EDT active testing 4 times a day and as needed eCW1 ([facility]) Test Strips - UNK 06/24/2019 12:00:00 AM EDT acti ve Test Strips - eCW1 ([facility]) Glucometer UNK 06/24/2019 12:00:00 AM EDT active Glucometer eCW1 ([facility]) Test Strips - UNK 06/24/2019 12:00:00 AM EDT acti ve Test Strips - eCW1 ([facility]) Test Strips - UNK 06/24/2019 12:00:00 AM EDT acti ve Test Strips - eCW1 ([facility]) Lancets Misc. - UNK 06/24/2019 12:00:00 AM EDT active Lancets Misc. - eCW1 ([facility]) Test Strips - UNK 06/24/2019 12:00:00 AM EDT acti ve Test Strips - eCW1 ([facility]) Test Strips - UNK 06/24/2019 12:00:00 AM EDT acti ve Test Strips - eCW1 ([facility]) Lancets Misc. - UNK 06/24/2019 12:00:00 AM EDT active Lancets Misc. - eCW1 ([facility]) Test Strips - UNK 06/24/2019 12:00:00 AM EDT acti ve Test Strips - eCW1 ([facility]) Test Strips - UNK 06/24/2019 12:00:00 AM EDT acti ve Test Strips - eCW1 ([facility]) Test Strips - UNK 06/24/2019 12:00:00 AM EDT acti ve Test Strips - eCW1 ([facility]) Glucometer UNK 06/24/2019 12:00:00 AM EDT active testing 4 times a day and as needed eCW1 ([facility]) Test Strips - UNK 06/24/2019 12:00:00 AM EDT acti ve Test Strips - eCW1 ([facility]) Test Strips - UNK 06/24/2019 12:00:00 AM EDT acti ve Test Strips - eCW1 ([facility]) Lancets Misc. - UNK 06/24/2019 12:00:00 AM EDT active Lancets Misc. - eCW1 ([facility]) Test Strips - UNK 06/24/2019 12:00:00 AM EDT acti ve Test Strips - eCW1 ([facility]) Glucometer UNK 06/24/2019 12:00:00 AM EDT active Glucometer eCW1 ([facility]) Test Strips - UNK 06/24/2019 12:00:00 AM EDT acti ve Test Strips - eCW1 ([facility]) Test Strips - UNK 06/24/2019 12:00:00 AM EDT acti ve Test Strips - eCW1 ([facility]) Test Strips - UNK 06/24/2019 12:00:00 AM EDT acti ve Test Strips - eCW1 ([facility]) Test Strips - UNK 06/24/2019 12:00:00 AM EDT acti ve Test Strips - eCW1 ([facility]) Lancets Misc. - UNK 06/24/2019 12:00:00 AM EDT active Lancets Misc. - eCW1 ([facility]) Test Strips - UNK 06/24/2019 12:00:00 AM EDT acti ve Test Strips - eCW1 ([facility]) Test Strips - UNK 06/24/2019 12:00:00 AM EDT acti ve Test Strips - eCW1 ([facility]) Test Strips - UNK 06/24/2019 12:00:00 AM EDT acti ve Test Strips - eCW1 ([facility]) Test Strips - UNK 06/24/2019 12:00:00 AM EDT acti ve Test Strips - eCW1 ([facility]) Test Strips - UNK 06/24/2019 12:00:00 AM EDT acti ve Test Strips - eCW1 ([facility]) Lancets Misc. - UNK 06/24/2019 12:00:00 AM EDT active Lancets Misc. - eCW1 ([facility]) Lancets Misc. - UNK 06/24/2019 12:00:00 AM EDT active Lancets Misc. - eCW1 ([facility]) Test Strips - UNK 06/24/2019 12:00:00 AM EDT acti ve Test Strips - eCW1 ([facility]) Glucometer UNK 06/24/2019 12:00:00 AM EDT active Glucometer eCW1 ([facility]) Test Strips - UNK 06/24/2019 12:00:00 AM EDT acti ve Test Strips - eCW1 ([facility]) Glucometer UNK 06/24/2019 12:00:00 AM EDT active Glucometer eCW1 ([facility]) Glucometer UNK 06/24/2019 12:00:00 AM EDT active Glucometer eCW1 ([facility]) Lancets Misc. - UNK 06/24/2019 12:00:00 AM EDT active Lancets Misc. - eCW1 ([facility]) Lancets Misc. - UNK 06/24/2019 12:00:00 AM EDT active Lancets Misc. - eCW1 ([facility]) Glucometer UNK 06/24/2019 12:00:00 AM EDT active Glucometer eCW1 ([facility]) Lancets Misc. - UNK 06/24/2019 12:00:00 AM EDT active Lancets Misc. - eCW1 ([facility]) Test Strips - UNK 06/24/2019 12:00:00 AM EDT acti ve Test Strips - eCW1 ([facility]) Lancets Misc. - UNK 06/24/2019 12:00:00 AM EDT active Lancets Misc. - eCW1 ([facility]) Test Strips - UNK 06/24/2019 12:00:00 AM EDT acti ve Test Strips - eCW1 ([facility]) Glucometer UNK 06/24/2019 12:00:00 AM EDT active Glucometer eCW1 ([facility]) Glucometer UNK 06/24/2019 12:00:00 AM EDT active Glucometer eCW1 ([facility]) Glucometer UNK 06/24/2019 12:00:00 AM EDT active Glucometer eCW1 ([facility]) Lancets Misc. - UNK 06/24/2019 12:00:00 AM EDT active Lancets Misc. - eCW1 ([facility]) Test Strips - UNK 06/24/2019 12:00:00 AM EDT acti ve - eCW1 ([facility]) Test Strips - UNK 06/24/2019 12:00:00 AM EDT acti ve Test Strips - eCW1 ([facility]) Test Strips - UNK 06/24/2019 12:00:00 AM EDT acti ve Test Strips - eCW1 ([facility]) Hydromorphone Hydrochloride 4 MG Oral Tablet Hydromorp nellie HCl 4 MG Hydromorphone HCl 4 MG 06/24/2019 12:00:00 AM EDT active 3 tablets eCW1 ([facility]) Test Strips - UNK 06/24/2019 12:00:00 AM EDT acti ve Test Strips - eCW1 ([facility]) Glucometer UNK 06/24/2019 12:00:00 AM EDT active Glucometer eCW1 ([facility]) Glucometer UNK 06/24/2019 12:00:00 AM EDT active Glucometer eCW1 ([facility]) Lancets Misc. - UNK 06/24/2019 12:00:00 AM EDT active Lancets Misc. - eCW1 ([facility]) Glucometer UNK 06/24/2019 12:00:00 AM EDT active Glucometer eCW1 ([facility]) Test Strips - UNK 06/24/2019 12:00:00 AM EDT acti ve Test Strips - eCW1 ([facility]) Glucometer UNK 06/24/2019 12:00:00 AM EDT active Glucometer eCW1 ([facility]) Lancets Misc. - UNK 06/24/2019 12:00:00 AM EDT active Lancets Misc. - eCW1 ([facility]) Test Strips - UNK 06/24/2019 12:00:00 AM EDT acti ve Test Strips - eCW1 ([facility]) Lancets Misc. - UNK 06/24/2019 12:00:00 AM EDT active Lancets Misc. - eCW1 ([facility]) Lancets Misc. - UNK 06/24/2019 12:00:00 AM EDT active Lancets Misc. - eCW1 ([facility]) Glucometer UNK 06/24/2019 12:00:00 AM EDT active Glucometer eCW1 ([facility]) Lancets Misc. - UNK 06/24/2019 12:00:00 AM EDT active Lancets Misc. - eCW1 ([facility]) Test Strips - UNK 06/24/2019 12:00:00 AM EDT acti ve Test Strips - eCW1 ([facility]) Test Strips - UNK 06/24/2019 12:00:00 AM EDT acti ve Test Strips - eCW1 ([facility]) Glucometer UNK 06/24/2019 12:00:00 AM EDT active Glucometer eCW1 ([facility]) Test Strips - UNK 06/24/2019 12:00:00 AM EDT acti ve Test Strips - eCW1 ([facility]) Glucometer UNK 06/24/2019 12:00:00 AM EDT active Glucometer eCW1 ([facility]) Glucometer UNK 06/24/2019 12:00:00 AM EDT active testing 4 times a day and as needed eCW1 ([facility]) Lancets Misc. - UNK 06/24/2019 12:00:00 AM EDT active Lancets Misc. - eCW1 ([facility]) Glucometer UNK 06/24/2019 12:00:00 AM EDT active Glucometer eCW1 ([facility]) Glucometer UNK 06/24/2019 12:00:00 AM EDT active Glucometer eCW1 ([facility]) Lancets Misc. - UNK 06/24/2019 12:00:00 AM EDT active Lancets Misc. - eCW1 ([facility]) Test Strips - UNK 06/24/2019 12:00:00 AM EDT acti ve - eCW1 ([facility]) Glucometer UNK 06/24/2019 12:00:00 AM EDT active Glucometer eCW1 ([facility]) Glucometer UNK 06/24/2019 12:00:00 AM EDT active Glucometer eCW1 ([facility]) Glucometer UNK 06/24/2019 12:00:00 AM EDT active Glucometer eCW1 ([facility]) Lancets Misc. - UNK 06/24/2019 12:00:00 AM EDT active Lancets Misc. - eCW1 ([facility]) Glucometer UNK 06/24/2019 12:00:00 AM EDT active Glucometer eCW1 ([facility]) Test Strips - UNK 06/24/2019 12:00:00 AM EDT acti ve Test Strips - eCW1 ([facility]) Test Strips - UNK 06/24/2019 12:00:00 AM EDT acti ve - eCW1 ([facility]) Glucometer UNK 06/24/2019 12:00:00 AM EDT active Glucometer eCW1 ([facility]) Glucometer UNK 06/24/2019 12:00:00 AM EDT active Glucometer eCW1 ([facility]) Lancets Misc. - UNK 06/24/2019 12:00:00 AM EDT active Lancets Misc. - eCW1 ([facility]) Glucometer UNK 06/24/2019 12:00:00 AM EDT active Glucometer eCW1 ([facility]) Test Strips - UNK 06/24/2019 12:00:00 AM EDT acti ve Test Strips - eCW1 ([facility]) Lancets Misc. - UNK 06/24/2019 12:00:00 AM EDT active Lancets Misc. - eCW1 ([facility]) Glucometer UNK 06/24/2019 12:00:00 AM EDT active Glucometer eCW1 ([facility]) Glucometer UNK 06/24/2019 12:00:00 AM EDT active Glucometer eCW1 ([facility]) Lancets Misc. - UNK 06/24/2019 12:00:00 AM EDT active Lancets Misc. - eCW1 ([facility]) Lancets Misc. - UNK 06/24/2019 12:00:00 AM EDT active Lancets Misc. - eCW1 ([facility]) Test Strips - UNK 06/24/2019 12:00:00 AM EDT acti ve Test Strips - eCW1 ([facility]) Glucometer UNK 06/24/2019 12:00:00 AM EDT active Glucometer eCW1 ([facility]) Glucometer UNK 06/24/2019 12:00:00 AM EDT active Glucometer eCW1 ([facility]) Lancets Misc. - UNK 06/24/2019 12:00:00 AM EDT active Lancets Misc. - eCW1 ([facility]) Test Strips - UNK 06/24/2019 12:00:00 AM EDT acti ve Test Strips - eCW1 ([facility]) Lancets Misc. - UNK 06/24/2019 12:00:00 AM EDT active Lancets Misc. - eCW1 ([facility]) Test Strips - UNK 06/24/2019 12:00:00 AM EDT acti ve Test Strips - eCW1 ([facility]) Glucometer UNK 06/24/2019 12:00:00 AM EDT active Glucometer eCW1 ([facility]) Glucometer UNK 06/24/2019 12:00:00 AM EDT active Glucometer eCW1 ([facility]) Test Strips - UNK 06/24/2019 12:00:00 AM EDT acti ve Test Strips - eCW1 ([facility]) Glucometer UNK 06/24/2019 12:00:00 AM EDT active Glucometer eCW1 ([facility]) Lancets Misc. - UNK 06/24/2019 12:00:00 AM EDT active Lancets Misc. - eCW1 ([facility]) Test Strips - UNK 06/24/2019 12:00:00 AM EDT acti ve Test Strips - eCW1 ([facility]) Glucometer UNK 06/24/2019 12:00:00 AM EDT active Glucometer eCW1 ([facility]) Glucometer UNK 06/24/2019 12:00:00 AM EDT active Glucometer eCW1 ([facility]) Lancets Misc. - UNK 06/24/2019 12:00:00 AM EDT active Lancets Misc. - eCW1 ([facility]) Glucometer UNK 06/24/2019 12:00:00 AM EDT active Glucometer eCW1 ([facility]) Glucometer UNK 06/24/2019 12:00:00 AM EDT active Glucometer eCW1 ([facility]) Glucometer UNK 06/24/2019 12:00:00 AM EDT active Glucometer eCW1 ([facility]) Glucometer UNK 06/24/2019 12:00:00 AM EDT active Glucometer eCW1 ([facility]) Lancets Misc. - UNK 06/24/2019 12:00:00 AM EDT active Lancets Misc. - eCW1 ([facility]) Lancets Misc. - UNK 06/24/2019 12:00:00 AM EDT active Lancets Misc. - eCW1 ([facility]) Test Strips - K 06/24/2019 12:00:00 AM EDT acti ve - eCW1 ([facility]) Test Strips - K 06/24/2019 12:00:00 AM EDT acti ve - eCW1 ([facility]) Glucometer UNK 06/24/2019 12:00:00 AM EDT active testing 4 times a day and as needed eCW1 ([facility]) Lancets Misc. - UNK 06/24/2019 12:00:00 AM EDT active Lancets Misc. - eCW1 ([facility]) Lancets Misc. - UNK 06/24/2019 12:00:00 AM EDT active Lancets Misc. - eCW1 ([facility]) Lancets Misc. - UNK 06/24/2019 12:00:00 AM EDT active Lancets Misc. - eCW1 ([facility]) Test Strips - UNK 06/24/2019 12:00:00 AM EDT acti ve - eCW1 ([facility]) Glucometer UNK 06/24/2019 12:00:00 AM EDT active Glucometer eCW1 ([facility]) Lancets Misc. - UNK 06/24/2019 12:00:00 AM EDT ac tive - eCW1 ([facility]) Test Strips - UNK 06/24/2019 12:00:00 AM EDT acti ve Test Strips - eCW1 ([facility]) Test Strips - UNK 06/24/2019 12:00:00 AM EDT acti ve Test Strips - eCW1 ([facility]) Test Strips - UNK 06/24/2019 12:00:00 AM EDT acti ve - eCW1 ([facility]) Lancets Misc. - UNK 06/24/2019 12:00:00 AM EDT ac tive - eCW1 ([facility]) Lancets Misc. - UNK 06/24/2019 12:00:00 AM EDT active Lancets Misc. - eCW1 ([facility]) Test Strips - UNK 06/24/2019 12:00:00 AM EDT acti ve Test Strips - eCW1 ([facility]) Lancets Misc. - UNK 06/24/2019 12:00:00 AM EDT active Lancets Misc. - eCW1 ([facility]) Test Strips - UNK 06/24/2019 12:00:00 AM EDT acti ve Test Strips - eCW1 ([facility]) Lancets Misc. - UNK 06/24/2019 12:00:00 AM EDT active Lancets Misc. - eCW1 ([facility]) Test Strips - K 06/24/2019 12:00:00 AM EDT acti ve Test Strips - eCW1 ([facility]) Glucometer UNK 06/24/2019 12:00:00 AM EDT active Glucometer eCW1 ([facility]) Glucometer UNK 06/24/2019 12:00:00 AM EDT active testing 4 times a day and as needed eCW1 ([facility]) Glucometer UNK 06/24/2019 12:00:00 AM EDT active Glucometer eCW1 ([facility]) Test Strips - UNK 06/24/2019 12:00:00 AM EDT acti ve Test Strips - eCW1 ([facility]) Lancets Misc. - UNK 06/24/2019 12:00:00 AM EDT active Lancets Misc. - eCW1 ([facility]) Glucometer UNK 06/24/2019 12:00:00 AM EDT active Glucometer eCW1 ([facility]) Glucometer UNK 06/24/2019 12:00:00 AM EDT active Glucometer eCW1 ([facility]) Glucometer UNK 06/24/2019 12:00:00 AM EDT active Glucometer eCW1 ([facility]) Lancets Misc. - UNK 06/24/2019 12:00:00 AM EDT active Lancets Misc. - eCW1 ([facility]) Lancets Misc. - UNK 06/24/2019 12:00:00 AM EDT active Lancets Misc. - eCW1 ([facility]) Hydromorphone Hydrochloride 4 MG Oral Tablet Hydromorp nellie HCl 4 MG Hydromorphone HCl 4 MG 06/24/2019 12:00:00 AM EDT active 3 tablets eCW1 ([facility]) Lancets Misc. - UNK 06/24/2019 12:00:00 AM EDT active Lancets Misc. - eCW1 ([facility]) Glucometer UNK 06/24/2019 12:00:00 AM EDT active Glucometer eCW1 ([facility]) Lancets Misc. - UNK 06/24/2019 12:00:00 AM EDT active Lancets Misc. - eCW1 ([facility]) Lancets Misc. - UNK 06/24/2019 12:00:00 AM EDT ac tive - eCW1 ([facility]) Test Strips - UNK 06/24/2019 12:00:00 AM EDT acti ve Test Strips - eCW1 ([facility]) Glucometer UNK 06/24/2019 12:00:00 AM EDT active Glucometer eCW1 ([facility]) Lancets Misc. - UNK 06/24/2019 12:00:00 AM EDT active Lancets Misc. - eCW1 ([facility]) Glucometer UNK 06/24/2019 12:00:00 AM EDT active Glucometer eCW1 ([facility]) Test Strips - UNK 06/24/2019 12:00:00 AM EDT acti ve Test Strips - eCW1 ([facility]) Glucometer UNK 06/24/2019 12:00:00 AM EDT active Glucometer eCW1 ([facility]) Glucometer UNK 06/24/2019 12:00:00 AM EDT active Glucometer eCW1 ([facility]) Test Strips - UNK 06/24/2019 12:00:00 AM EDT acti ve Test Strips - eCW1 ([facility]) Test Strips - UNK 06/24/2019 12:00:00 AM EDT acti ve Test Strips - eCW1 ([facility]) Test Strips - UNK 06/24/2019 12:00:00 AM EDT acti ve Test Strips - eCW1 ([facility]) Test Strips - UNK 06/24/2019 12:00:00 AM EDT acti ve Test Strips - eCW1 ([facility]) Lancets Misc. - UNK 06/24/2019 12:00:00 AM EDT active Lancets Misc. - eCW1 ([facility]) Lancets Misc. - UNK 06/24/2019 12:00:00 AM EDT active Lancets Misc. - eCW1 ([facility]) Lancets Misc. - UNK 06/24/2019 12:00:00 AM EDT active Lancets Misc. - eCW1 ([facility]) Lancets Misc. - UNK 06/24/2019 12:00:00 AM EDT active Lancets Misc. - eCW1 ([facility]) Lancets Misc. - UNK 06/24/2019 12:00:00 AM EDT active Lancets Misc. - eCW1 ([facility]) Test Strips - UNK 06/24/2019 12:00:00 AM EDT acti ve Test Strips - eCW1 ([facility]) Glucometer UNK 06/24/2019 12:00:00 AM EDT active testing 4 times a day and as needed eCW1 ([facility]) Lancets Misc. - UNK 06/24/2019 12:00:00 AM EDT active Lancets Misc. - eCW1 ([facility]) Lancets Misc. - UNK 06/24/2019 12:00:00 AM EDT active Lancets Misc. - eCW1 ([facility]) Glucometer UNK 06/24/2019 12:00:00 AM EDT active Glucometer eCW1 ([facility]) Test Strips - UNK 06/24/2019 12:00:00 AM EDT acti ve Test Strips - eCW1 ([facility]) Glucometer UNK 06/24/2019 12:00:00 AM EDT active Glucometer eCW1 ([facility]) Test Strips - UNK 06/24/2019 12:00:00 AM EDT acti ve Test Strips - eCW1 ([facility]) Test Strips - UNK 06/24/2019 12:00:00 AM EDT acti ve Test Strips - eCW1 ([facility]) Glucometer UNK 06/24/2019 12:00:00 AM EDT active Glucometer eCW1 ([facility]) Glucometer UNK 06/24/2019 12:00:00 AM EDT active testing 4 times a day and as needed eCW1 ([facility]) Glucometer UNK 06/24/2019 12:00:00 AM EDT active Glucometer eCW1 ([facility]) Test Strips - UNK 06/24/2019 12:00:00 AM EDT acti ve Test Strips - eCW1 ([facility]) Glucometer UNK 06/24/2019 12:00:00 AM EDT active Glucometer eCW1 ([facility]) Glucometer UNK 06/24/2019 12:00:00 AM EDT active Glucometer eCW1 ([facility]) Glucometer UNK 06/24/2019 12:00:00 AM EDT active testing 4 times a day and as needed eCW1 ([facility]) Lancets Misc. - UNK 06/24/2019 12:00:00 AM EDT active Lancets Misc. - eCW1 ([facility]) Lancets Misc. - UNK 06/24/2019 12:00:00 AM EDT active Lancets Misc. - eCW1 ([facility]) Glucometer UNK 06/24/2019 12:00:00 AM EDT active Glucometer eCW1 ([facility]) Test Strips - UNK 06/24/2019 12:00:00 AM EDT acti ve Test Strips - eCW1 ([facility]) Test Strips - UNK 06/24/2019 12:00:00 AM EDT acti ve Test Strips - eCW1 ([facility]) Glucometer UNK 06/24/2019 12:00:00 AM EDT active Glucometer eCW1 ([facility]) Lancets Misc. - UNK 06/24/2019 12:00:00 AM EDT active Lancets Misc. - eCW1 ([facility]) Test Strips - UNK 06/24/2019 12:00:00 AM EDT acti ve Test Strips - eCW1 ([facility]) Lancets Misc. - UNK 06/24/2019 12:00:00 AM EDT active Lancets Misc. - eCW1 ([facility]) Lancets Misc. - UNK 06/24/2019 12:00:00 AM EDT active Lancets Misc. - eCW1 ([facility]) Lancets Misc. - UNK 06/24/2019 12:00:00 AM EDT active Lancets Misc. - eCW1 ([facility]) Test Strips - UNK 06/24/2019 12:00:00 AM EDT acti ve Test Strips - eCW1 ([facility]) Glucometer UNK 06/24/2019 12:00:00 AM EDT active Glucometer eCW1 ([facility]) Lancets Misc. - UNK 06/24/2019 12:00:00 AM EDT active Lancets Misc. - eCW1 ([facility]) Glucometer UNK 06/24/2019 12:00:00 AM EDT active Glucometer eCW1 ([facility]) Glucometer UNK 06/24/2019 12:00:00 AM EDT active Glucometer eCW1 ([facility]) Lancets Misc. - UNK 06/24/2019 12:00:00 AM EDT active Lancets Misc. - eCW1 ([facility]) Test Strips - UNK 06/24/2019 12:00:00 AM EDT acti ve Test Strips - eCW1 ([facility]) Test Strips - UNK 06/24/2019 12:00:00 AM EDT acti ve Test Strips - eCW1 ([facility]) Test Strips - UNK 06/24/2019 12:00:00 AM EDT acti ve Test Strips - eCW1 ([facility]) Lancets Misc. - UNK 06/24/2019 12:00:00 AM EDT active Lancets Misc. - eCW1 ([facility]) Test Strips - UNK 06/24/2019 12:00:00 AM EDT acti ve Test Strips - eCW1 ([facility]) Lancets Misc. - UNK 06/24/2019 12:00:00 AM EDT ac tive - eCW1 ([facility]) Glucometer UNK 06/24/2019 12:00:00 AM EDT active Glucometer eCW1 ([facility]) Lancets Misc. - UNK 06/24/2019 12:00:00 AM EDT active Lancets Misc. - eCW1 ([facility]) Glucometer UNK 06/24/2019 12:00:00 AM EDT active Glucometer eCW1 ([facility]) Glucometer UNK 06/24/2019 12:00:00 AM EDT active Glucometer eCW1 ([facility]) Lancets Misc. - UNK 06/24/2019 12:00:00 AM EDT ac tive - eCW1 ([facility]) Lancets Misc. - UNK 06/24/2019 12:00:00 AM EDT active Lancets Misc. - eCW1 ([facility]) Test Strips - UNK 06/24/2019 12:00:00 AM EDT acti ve Test Strips - eCW1 ([facility]) Test Strips - UNK 06/24/2019 12:00:00 AM EDT acti ve - eCW1 ([facility]) Lancets Misc. - UNK 06/24/2019 12:00:00 AM EDT active Lancets Misc. - eCW1 ([facility]) Glucometer UNK 06/24/2019 12:00:00 AM EDT active Glucometer eCW1 ([facility]) Lancets Misc. - UNK 06/24/2019 12:00:00 AM EDT ac tive - eCW1 ([facility]) Glucometer UNK 06/24/2019 12:00:00 AM EDT active Glucometer eCW1 ([facility]) Lancets Misc. - UNK 06/24/2019 12:00:00 AM EDT ac tive - eCW1 ([facility]) Glucometer UNK 06/24/2019 12:00:00 AM EDT active testing 4 times a day and as needed eCW1 ([facility]) Lancets Misc. - UNK 06/24/2019 12:00:00 AM EDT active Lancets Misc. - eCW1 ([facility]) Lancets Misc. - UNK 06/24/2019 12:00:00 AM EDT active Lancets Misc. - eCW1 ([facility]) Lancets Misc. - UNK 06/24/2019 12:00:00 AM EDT ac tive - eCW1 ([facility]) Glucometer UNK 06/24/2019 12:00:00 AM EDT active Glucometer eCW1 ([facility]) Lancets Misc. - UNK 06/24/2019 12:00:00 AM EDT active Lancets Misc. - eCW1 ([facility]) Lancets Misc. - UNK 06/24/2019 12:00:00 AM EDT active Lancets Misc. - eCW1 ([facility]) Lancets Misc. - UNK 06/24/2019 12:00:00 AM EDT ac tive - eCW1 ([facility]) Test Strips - UNK 06/24/2019 12:00:00 AM EDT acti ve Test Strips - eCW1 ([facility]) Test Strips - UNK 06/24/2019 12:00:00 AM EDT acti ve Test Strips - eCW1 ([facility]) Test Strips - UNK 06/24/2019 12:00:00 AM EDT acti ve Test Strips - eCW1 ([facility]) Lancets Misc. - UNK 06/24/2019 12:00:00 AM EDT active Lancets Misc. - eCW1 ([facility]) Lancets Misc. - UNK 06/24/2019 12:00:00 AM EDT active Lancets Misc. - eCW1 ([facility]) Lancets Misc. - UNK 06/24/2019 12:00:00 AM EDT ac tive - eCW1 ([facility]) Glucometer UNK 06/24/2019 12:00:00 AM EDT active Glucometer eCW1 ([facility]) Lancets Misc. - UNK 06/24/2019 12:00:00 AM EDT active Lancets Misc. - eCW1 ([facility]) Test Strips - UNK 06/24/2019 12:00:00 AM EDT acti ve - eCW1 ([facility]) Test Strips - UNK 06/24/2019 12:00:00 AM EDT acti ve - eCW1 ([facility]) Glucometer UNK 06/24/2019 12:00:00 AM EDT active Glucometer eCW1 ([facility]) Hydromorphone Hydrochloride 4 MG Oral Tablet Hydromorp nellie HCl 4 MG Hydromorphone HCl 4 MG 06/17/2019 12:00:00 AM EST active 3 tablets eCW1 ([facility]) 2 % 06/17/2019 12:00:00 AM EST ointment 22 APPLY 1 APPLICATION TO 2 AREAS ON LEFT BREAST AND RIGHT CHEST WALL TWO TIMES A DAY APPLY 1 APPLICATION TO 2 AREAS ON LEFT BREAST AND RIGHT CHEST WALL TWO TIMES A DAY SOLD: 06/17/2019 [facility] Hydromorphone Hydrochloride 4 MG Oral Tablet Hydromorp nellie HCl 4 MG Hydromorphone HCl 4 MG 06/17/2019 12:00:00 AM EST 3.0 {tablets} active Hydromorphone HCl 4 MG eCW1 ([facility]) Hydromorphone Hydrochloride 4 MG Oral Tablet Hydromorp nellie HCl 4 MG Hydromorphone HCl 4 MG 06/17/2019 12:00:00 AM EST active 3 tablets eCW1 ([facility]) 4 mg 06/17/2019 12:00:00 AM EST tablet 168 TAKE 3 TABLETS BY MOUTH EVERY 3 HOURS NEEDED FOR 7 DAYS MAXIMUM DAILY DOSE = 24 TABLETS TAKE 3 TABLETS BY MOUTH EVERY 3 HOURS NEEDED FOR 7 DAYS MAXIMUM DAILY DOSE = 24 TABLETS SOLD: 06/17/2019 [facility] Hydromorphone Hydrochloride 4 MG Oral Tablet Hydromorp nellie HCl 4 MG Hydromorphone HCl 4 MG 06/11/2019 12:00:00 AM EST active 3 tablets eCW1 ([facility]) 4 mg 06/11/2019 12:00:00 AM EST tablet 168 TAKE 3 TABLETS BY MOUTH EVERY 3 HOURS NEEDED MAXIMUM DAILY DOSE = 24 TABLETS TAKE 3 TABLETS BY MOUTH EVERY 3 HOURS NEEDED MAXIMUM DAILY DOSE = 24 TABLETS SOLD: 06/11/2019 [facility] Hydromorphone Hydrochloride 4 MG Oral Tablet Hydromorp nellie HCl 4 MG Hydromorphone HCl 4 MG 06/11/2019 12:00:00 AM EST active 3 tablets eCW1 ([facility]) 4 mg 06/04/2019 12:00:00 AM EST tablet 168 TAKE 3 TABLETS BY MOUTH EVERY 3 HOURS NEEDED MAXIMUM DAILY DOSE = 24 TABLETS TAKE 3 TABLETS BY MOUTH EVERY 3 HOURS NEEDED MAXIMUM DAILY DOSE = 24 TABLETS SOLD: 06/04/2019 [facility] Hospital bed UNK 06/02/2019 12:00:00 AM EST activ e Hospital bed eCW1 ([facility]) Hospital bed UNK 06/02/2019 12:00:00 AM EST activ e Hospital bed eCW1 ([facility]) Hospital bed UNK 06/02/2019 12:00:00 AM EST activ e Hospital bed eCW1 ([facility]) Hospital bed UNK 06/02/2019 12:00:00 AM EST activ e Hospital bed eCW1 ([facility]) Hospital bed UNK 06/02/2019 12:00:00 AM EST activ e Hospital bed eCW1 ([facility]) Hospital bed UNK 06/02/2019 12:00:00 AM EST activ e Hospital bed eCW1 ([facility]) Hospital bed UNK 06/02/2019 12:00:00 AM EST activ e use daily eCW1 ([facility]) Hospital bed UNK 06/02/2019 12:00:00 AM EST activ e Hospital bed eCW1 ([facility]) Hospital bed UNK 06/02/2019 12:00:00 AM EST activ e Hospital bed eCW1 ([facility]) Hospital bed UNK 06/02/2019 12:00:00 AM EST activ e Hospital bed eCW1 ([facility]) Hospital bed UNK 06/02/2019 12:00:00 AM EST activ e Hospital bed eCW1 ([facility]) Hospital bed UNK 06/02/2019 12:00:00 AM EST activ e Hospital bed eCW1 ([facility]) Hospital bed UNK 06/02/2019 12:00:00 AM EST activ e Hospital bed eCW1 ([facility]) Hospital bed UNK 06/02/2019 12:00:00 AM EST activ e Hospital bed eCW1 ([facility]) Hospital bed UNK 06/02/2019 12:00:00 AM EST activ e Hospital bed eCW1 ([facility]) Hospital bed UNK 06/02/2019 12:00:00 AM EST activ e Hospital bed eCW1 ([facility]) Hospital bed UNK 06/02/2019 12:00:00 AM EST activ e Hospital bed eCW1 ([facility]) Hospital bed UNK 06/02/2019 12:00:00 AM EST activ e Hospital bed eCW1 ([facility]) Hospital bed UNK 06/02/2019 12:00:00 AM EST activ e use daily eCW1 ([facility]) Hospital bed UNK 06/02/2019 12:00:00 AM EST activ e Hospital bed eCW1 ([facility]) Hospital bed UNK 06/02/2019 12:00:00 AM EST activ e Hospital bed eCW1 ([facility]) Hospital bed UNK 06/02/2019 12:00:00 AM EST activ e Hospital bed eCW1 ([facility]) Hospital bed UNK 06/02/2019 12:00:00 AM EST activ e use daily eCW1 ([facility]) Hospital bed UNK 06/02/2019 12:00:00 AM EST activ e Hospital bed eCW1 ([facility]) Hospital bed UNK 06/02/2019 12:00:00 AM EST activ e Hospital bed eCW1 ([facility]) Hospital bed UNK 06/02/2019 12:00:00 AM EST activ e Hospital bed eCW1 ([facility]) Hospital bed UNK 06/02/2019 12:00:00 AM EST activ e Hospital bed eCW1 ([facility]) Hospital bed UNK 06/02/2019 12:00:00 AM EST activ e use daily eCW1 ([facility]) Hospital bed UNK 06/02/2019 12:00:00 AM EST activ e Hospital bed eCW1 ([facility]) Hospital bed UNK 06/02/2019 12:00:00 AM EST activ e Hospital bed eCW1 ([facility]) Hospital bed UNK 06/02/2019 12:00:00 AM EST activ e use daily eCW1 ([facility]) Hospital bed UNK 06/02/2019 12:00:00 AM EST activ e use daily eCW1 ([facility]) Hospital bed UNK 06/02/2019 12:00:00 AM EST activ e Hospital bed eCW1 ([facility]) Hospital bed UNK 06/02/2019 12:00:00 AM EST activ e Hospital bed eCW1 ([facility]) Hospital bed UNK 06/02/2019 12:00:00 AM EST activ e Hospital bed eCW1 ([facility]) Hospital bed UNK 06/02/2019 12:00:00 AM EST activ e use daily eCW1 ([facility]) Hospital bed UNK 06/02/2019 12:00:00 AM EST activ e Hospital bed eCW1 ([facility]) Hospital bed UNK 06/02/2019 12:00:00 AM EST activ e Hospital bed eCW1 ([facility]) Hospital bed UNK 06/02/2019 12:00:00 AM EST activ e Hospital bed eCW1 ([facility]) Hospital bed UNK 06/02/2019 12:00:00 AM EST activ e Hospital bed eCW1 ([facility]) Hospital bed UNK 06/02/2019 12:00:00 AM EST activ e Hospital bed eCW1 ([facility]) Hospital bed UNK 06/02/2019 12:00:00 AM EST activ e use daily eCW1 ([facility]) Hospital bed UNK 06/02/2019 12:00:00 AM EST activ e Hospital bed eCW1 ([facility]) Hospital bed UNK 06/02/2019 12:00:00 AM EST activ e Hospital bed eCW1 ([facility]) Hospital bed UNK 06/02/2019 12:00:00 AM EST activ e Hospital bed eCW1 ([facility]) Hospital bed UNK 06/02/2019 12:00:00 AM EST activ e Hospital bed eCW1 ([facility]) Hospital bed UNK 06/02/2019 12:00:00 AM EST activ e Hospital bed eCW1 ([facility]) Hospital bed UNK 06/02/2019 12:00:00 AM EST activ e Hospital bed eCW1 ([facility]) Hospital bed UNK 06/02/2019 12:00:00 AM EST activ e Hospital bed eCW1 ([facility]) Hospital bed UNK 06/02/2019 12:00:00 AM EST activ e Hospital bed eCW1 ([facility]) Hospital bed UNK 06/02/2019 12:00:00 AM EST activ e use daily eCW1 ([facility]) Hospital bed UNK 06/02/2019 12:00:00 AM EST activ e use daily eCW1 ([facility]) Hospital bed UNK 06/02/2019 12:00:00 AM EST activ e Hospital bed eCW1 ([facility]) Hospital bed UNK 06/02/2019 12:00:00 AM EST activ e Hospital bed eCW1 ([facility]) Hospital bed UNK 06/02/2019 12:00:00 AM EST activ e Hospital bed eCW1 ([facility]) Hospital bed UNK 06/02/2019 12:00:00 AM EST activ e Hospital bed eCW1 ([facility]) Hospital bed UNK 06/02/2019 12:00:00 AM EST activ e Hospital bed eCW1 ([facility]) Hospital bed UNK 06/02/2019 12:00:00 AM EST activ e Hospital bed eCW1 ([facility]) Hospital bed UNK 06/02/2019 12:00:00 AM EST activ e Hospital bed eCW1 ([facility]) Hospital bed UNK 06/02/2019 12:00:00 AM EST activ e Hospital bed eCW1 ([facility]) Hospital bed UNK 06/02/2019 12:00:00 AM EST activ e Hospital bed eCW1 ([facility]) Hospital bed UNK 06/02/2019 12:00:00 AM EST activ e Hospital bed eCW1 ([facility]) Hospital bed UNK 06/02/2019 12:00:00 AM EST activ e Hospital bed eCW1 ([facility]) Hospital bed UNK 06/02/2019 12:00:00 AM EST activ e Hospital bed eCW1 ([facility]) Hospital bed UNK 06/02/2019 12:00:00 AM EST activ e Hospital bed eCW1 ([facility]) Hospital bed UNK 06/02/2019 12:00:00 AM EST activ e Hospital bed eCW1 ([facility]) Hospital bed UNK 06/02/2019 12:00:00 AM EST activ e Hospital bed eCW1 ([facility]) Hospital bed UNK 06/02/2019 12:00:00 AM EST activ e Hospital bed eCW1 ([facility]) Hospital bed UNK 06/02/2019 12:00:00 AM EST activ e Hospital bed eCW1 ([facility]) Hospital bed UNK 06/02/2019 12:00:00 AM EST activ e Hospital bed eCW1 ([facility]) Hospital bed UNK 06/02/2019 12:00:00 AM EST activ e Hospital bed eCW1 ([facility]) Hospital bed UNK 06/02/2019 12:00:00 AM EST activ e Hospital bed eCW1 ([facility]) Hospital bed UNK 06/02/2019 12:00:00 AM EST activ e Hospital bed eCW1 ([facility]) Hospital bed UNK 06/02/2019 12:00:00 AM EST activ e Hospital bed eCW1 ([facility]) Hospital bed UNK 06/02/2019 12:00:00 AM EST activ e Hospital bed eCW1 ([facility]) Hospital bed UNK 06/02/2019 12:00:00 AM EST activ e Hospital bed eCW1 ([facility]) Hospital bed UNK 06/02/2019 12:00:00 AM EST activ e Hospital bed eCW1 ([facility]) Hospital bed UNK 06/02/2019 12:00:00 AM EST activ e Hospital bed eCW1 ([facility]) Hospital bed UNK 06/02/2019 12:00:00 AM EST activ e Hospital bed eCW1 ([facility]) Hospital bed UNK 06/02/2019 12:00:00 AM EST activ e Hospital bed eCW1 ([facility]) Hospital bed UNK 06/02/2019 12:00:00 AM EST activ e Hospital bed eCW1 ([facility]) Hospital bed UNK 06/02/2019 12:00:00 AM EST activ e use daily eCW1 ([facility]) Hospital bed UNK 06/02/2019 12:00:00 AM EST activ e Hospital bed eCW1 ([facility]) Hospital bed UNK 06/02/2019 12:00:00 AM EST activ e Hospital bed eCW1 ([facility]) Hospital bed UNK 06/02/2019 12:00:00 AM EST activ e use daily eCW1 ([facility]) Hospital bed UNK 06/02/2019 12:00:00 AM EST activ e Hospital bed eCW1 ([facility]) 4 mg 05/26/2019 12:00:00 AM EST tablet 128 TAKE 3 TABLETS BY MOUTH EVERY 3 HOURS NEEDED MAXIMUM DAILY DOSE = 32 TABLETS TAKE 3 TABLETS BY MOUTH EVERY 3 HOURS NEEDED MAXIMUM DAILY DOSE = 32 TABLETS SOLD: 05/27/2019 [facility] Hydromorphone Hydrochloride 4 MG Oral Tablet Hydromorp nellie HCl 4 MG Hydromorphone HCl 4 MG 05/26/2019 12:00:00 AM EST active 3 tablets eCW1 ([facility]) 0.1 % 05/26/2019 12:00:00 AM EST cream 60 APPLY A THIN LAYER TO RED AREAS ON FINGERS TWICE A DAY FOR 30 DAYS APPLY A THIN LAYER TO RED AREAS ON FINGE RS TWICE A DAY FOR 30 DAYS SOLD: 06/15/2019 [facility] 0.1 % 05/26/2019 12:00:00 AM EST cream 60 APPLY A THIN LAYER TO RED AREAS ON FINGERS TWICE A DAY FOR 30 DAYS APPLY A THIN LAYER TO RED AREAS ON FINGE RS TWICE A DAY FOR 30 DAYS SOLD: 05/26/2019 [facility] ELECTROLYTES/DEXTROSE 05/24/2019 12:00:00 AM EST solution 2 0000 TAKE 330ML BY MOUTH THREE TIMES A DAY TAKE 330ML BY MOUTH THREE TIMES A DAY SOLD: 07/07/2019 [facility] ELECTROLYTES/DEXTROSE 05/24/2019 12:00:00 AM EST solution 3 0000 TAKE 330ML BY MOUTH THREE TIMES A DAY TAKE 330ML BY MOUTH THREE TIMES A DAY SOLD: 11/26/2019 [facility] ELECTROLYTES/DEXTROSE 05/24/2019 12:00:00 AM EST solution 3 0000 TAKE 330ML BY MOUTH THREE TIMES A DAY TAKE 330ML BY MOUTH THREE TIMES A DAY SOLD: 08/30/2019 [facility] ELECTROLYTES/DEXTROSE 05/24/2019 12:00:00 AM EST solution 3 0000 TAKE 330ML BY MOUTH THREE TIMES A DAY TAKE 330ML BY MOUTH THREE TIMES A DAY SOLD: 10/29/2019 [facility] ELECTROLYTES/DEXTROSE 05/24/2019 12:00:00 AM EST solution 3 0000 TAKE 330ML BY MOUTH THREE TIMES A DAY TAKE 330ML BY MOUTH THREE TIMES A DAY SOLD: 09/30/2019 [facility] ELECTROLYTES/DEXTROSE 05/24/2019 12:00:00 AM EST solution 3 0000 TAKE 330ML BY MOUTH THREE TIMES A DAY TAKE 330ML BY MOUTH THREE TIMES A DAY SOLD: 05/24/2019 [facility] 4 mg/2 mL 05/13/2019 12:00:00 AM EST solution 60 INJECT 4MG [2MLS] TWICE A DAY AT LEAST 8 HOURS APART DIRECTED INJECT 4MG [2MLS] TWICE A DAY AT LEAST 8 HOURS APART DIRECTED SOLD: 05/18/2019 [facility] 4 mg 05/13/2019 12:00:00 AM EST tablet 224 TAKE 3 TABLETS BY MOUTH EVERY 3 HOURS NEEDED MAXIMUM DAILY DOSE = 32 TABLETS TAKE 3 TABLETS BY MOUTH EVERY 3 HOURS NEEDED MAXIMUM DAILY DOSE = 32 TABLETS SOLD: 05/13/2019 [facility] 4 mg/2 mL 05/13/2019 12:00:00 AM EST solution 60 INJECT 4MG [2MLS] TWICE A DAY AT LEAST 8 HOURS APART DIRECTED INJECT 4MG [2MLS] TWICE A DAY AT LEAST 8 HOURS APART DIRECTED SOLD: 06/03/2019 [facility] Hydromorphone Hydrochloride 4 MG Oral Tablet [facility]romorp nellie HCl 4 MG Hydromorphone HCl 4 MG 05/13/2019 12:00:00 AM EST active 3 tablets eCW1 ([facility]) Hydromorphone HCl 4 MG UNK 05/05/2019 12:00:00 AM EST active 3 tablets eCW1 ([facility]) 4 mg 05/05/2019 12:00:00 AM EST tablet 168 TAKE 3 TABLETS BY MOUTH EVERY 3 HOURS NEEDED MAXIMUM DAILY DOSE = 32 TABLETS TAKE 3 TABLETS BY MOUTH EVERY 3 HOURS NEEDED MAXIMUM DAILY DOSE = 32 TABLETS SOLD: 05/05/2019 [facility] Hydromorphone Hydrochloride 4 MG Oral Tablet Hydromorp nellie HCl 4 MG Hydromorphone HCl 4 MG 05/01/2019 12:00:00 AM EST active 4 tablets eCW1 ([facility]) 4 mg 05/01/2019 12:00:00 AM EST tablet 64 TAKE 4 TABLETS BY MOUTH EVERY 3 HOURS NEEDED MAXIMUM DAILY DOSE = 32TABS TAKE 4 TABLETS BY MOUTH EVERY 3 HOURS NEEDED MAXIMUM DAILY DOSE = 32TABS SOLD: 05/01/2019 [facility] Prednisone 50 MG Oral Tablet PredniSONE 50 MG PredniSONE 50 MG 04/26/2019 12:00:00 AM EST suspended 1 tab let eCW1 ([facility]) Prednisone 50 MG Oral Tablet PredniSONE 50 MG PredniSONE 50 MG 04/26/2019 12:00:00 AM EST suspended 1 tab let eCW1 ([facility]) Prednisone 50 MG Oral Tablet PredniSONE 50 MG PredniSONE 50 MG 04/26/2019 12:00:00 AM EST active 1 tablet eCW1 ([facility]) Prednisone 50 MG Oral Tablet PredniSONE 50 MG PredniSONE 50 MG 04/26/2019 12:00:00 AM EST suspended 1 tab let eCW1 ([facility]) Prednisone 50 MG Oral Tablet PredniSONE 50 MG PredniSONE 50 MG 04/26/2019 12:00:00 AM EST suspended 1 tab let eCW1 ([facility]) Prednisone 50 MG Oral Tablet PredniSONE 50 MG PredniSONE 50 MG 04/26/2019 12:00:00 AM EST suspended 1 tab let eCW1 ([facility]) 50 mg 04/26/2019 12:00:00 AM EST tablet 5 TAKE 1 TABLET BY MOUTH ONCE A DAY FOR 5 DAYS TAKE 1 TABLET BY MOUTH ONCE A DAY FOR 5 DAYS SOLD: 04/26/2019 [facility] Prednisone 50 MG Oral Tablet PredniSONE 50 MG PredniSONE 50 MG 04/26/2019 12:00:00 AM EST active 1 tablet eCW1 ([facility]) Prednisone 50 MG Oral Tablet PredniSONE 50 MG PredniSONE 50 MG 04/26/2019 12:00:00 AM EST 1.0 {tablet} suspended PredniSONE 50 MG eCW1 ([facility]) Prednisone 50 MG Oral Tablet PredniSONE 50 MG PredniSONE 50 MG 04/26/2019 12:00:00 AM EST suspended 1 tab let eCW1 ([facility]) Hydromorphone Hydrochloride 4 MG Oral Tablet [facility]ellie HCl 4 MG Hydromorphone HCl 4 MG 04/22/2019 12:00:00 AM EST active 3 tablets eCW1 ([facility]) 4 mg 04/22/2019 12:00:00 AM EST tablet 168 TAEK 3 TABLETS BY MOUTH EVERY 3 HOURS NEEDED MAXIMUM DAILY DOSE = 24 TABLETS TAEK 3 TABLETS BY MOUTH EVERY 3 HOURS NEEDED MAXIMUM DAILY DOSE = 24 TABLETS SOLD: 04/22/2019 [facility] 2 % 04/21/2019 12:00:00 AM EST ointment 22 APPLY 1 APPLICATION TO 2 AREAS ON LEFT BREAST & RIGHT CHEST WALL TWO TIMES A DAY APPLY 1 APPLICATION TO 2 AREAS ON LEFT BREAST & RIGHT CHEST WALL TWO TIMES A DAY SOLD: 05/14/2019 [facility] 2 % 04/21/2019 12:00:00 AM EST ointment 22 APPLY 1 APPLICATION TO 2 AREAS ON LEFT BREAST & RIGHT CHEST WALL TWO TIMES A DAY APPLY 1 APPLICATION TO 2 AREAS ON LEFT BREAST & RIGHT CHEST WALL TWO TIMES A DAY SOLD: 04/21/2019 [facility] 100 mg 04/20/2019 12:00:00 AM EST tablet 14 TAKE ONE TABLET BY MOUTH EVERY 12 HOURS FOR 7 DAYS TAKE ONE TABLET BY MOUTH EVERY 12 HOURS FOR 7 DAYS FAISAL [facility] Doxycycline Monohydrate 100 MG Oral Tablet Doxycycline Monoh ydrate 100 MG 04/20/2019 12:00:00 AM EST suspended 1 tablet eCW1 ([facility]) Doxycycline Monohydrate 100 MG Oral Tablet Doxycycline Monoh ydrate 100 MG 04/20/2019 12:00:00 AM EST suspended 1 tablet eCW1 ([facility]) Doxycycline Monohydrate 100 MG Oral Tablet Doxycycline Monoh ydrate 100 MG 04/20/2019 12:00:00 AM EST suspended 1 tablet eCW1 ([facility]) Doxycycline Monohydrate 100 MG Oral Tablet Doxycycline Monoh ydrate 100 MG 04/20/2019 12:00:00 AM EST suspended 1 tablet eCW1 ([facility]) Doxycycline Monohydrate 100 MG Oral Tablet Doxycycline Monoh ydrate 100 MG 04/20/2019 12:00:00 AM EST active 1 tablet eCW1 ([facility]) Doxycycline Monohydrate 100 MG Oral Tablet Doxycycline Monoh ydrate 100 MG 04/20/2019 12:00:00 AM EST active 1 tablet eCW1 ([facility]) Doxycycline Monohydrate 100 MG Oral Tablet Doxycycline Monoh ydrate 100 MG 04/20/2019 12:00:00 AM EST 1.0 {tablet} suspende d Doxycycline Monohydrate 100 MG eCW1 ([facility]) Doxycycline Monohydrate 100 MG Oral Tablet Doxycycline Monoh ydrate 100 MG 04/20/2019 12:00:00 AM EST active 1 tablet eCW1 ([facility]) Doxycycline Monohydrate 100 MG Oral Tablet Doxycycline Monoh ydrate 100 MG 04/20/2019 12:00:00 AM EST suspended 1 tablet eCW1 ([facility]) 4 mg/2 mL 04/19/2019 12:00:00 AM EST solution 120 INJECT 4MG (2ML) DIRECTED TWO TIMES A DAY AT LEAST 8 HOURS APART INJECT 4MG (2ML) DIRECTED TWO TIMES A DAY AT LEAST 8 HOURS APART SOLD: 04/19/2019 [facility] 4 mg/2 mL 04/19/2019 12:00:00 AM EST solution 120 INJECT 4MG (2ML) DIRECTED TWO TIMES A DAY AT LEAST 8 HOURS APART INJECT 4MG (2ML) DIRECTED TWO TIMES A DAY AT LEAST 8 HOURS APART SOLD: 07/06/2019 [facility] 2 % 04/18/2019 12:00:00 AM EST ointment 22 APPLY TOPICALLY TO 2 AREAS, LEFT BREAST & RIGHT CHEST WALL TWO TIMES A DAY APPLY TOPICALLY TO 2 AREAS, LEFT BREAST & RIGHT CHEST WALL TWO TIMES A DAY SOLD: 04/18/2019 [facility] 4 mg 04/13/2019 12:00:00 AM EST tablet 168 TAKE THREE TABLETS BY MOUTH EVERY 3 HOURS NEEDED MAXIMUM DAILY DOSE = 24 TABLETS TAKE THREE TABLETS BY MOUTH EVERY 3 HOURS NEEDED MAXIMUM DAILY DOSE = 24 TABLETS SOLD: 04/14/2019 [facility] Hydromorphone Hydrochloride 4 MG Oral Tablet [facility]ellie HCl 4 MG Hydromorphone HCl 4 MG 04/13/2019 12:00:00 AM EST active 3 tablets eCW1 ([facility]) 90 mcg/actuation 04/12/2019 12:00:00 AM EST HFA aerosol inha ler 18 INHALE 2 PUFFS BY MOUTH EVERY 4 HOURS NEEDED INHALE 2 PUFFS BY MOUTH EVERY 4 HOURS NEEDED SOLD: 04/12/2019 [facility] 2.5 mg /3 mL (0.083 %) 04/09/2019 12:00:00 AM EST solu tion for nebulization 75 INHALE THE CONTENTS OF ONE VIAL VIA NEBU LIZER EVERY 4 TO 6 HOURS NEEDED INHALE THE CONTENTS OF ONE VIAL VIA NEBULIZER EVERY 4 TO 6 HOURS NEEDED SOLD: 04/09/2019 [facility] 2.5 mg /3 mL (0.083 %) 04/09/2019 12:00:00 AM EST solu tion for nebulization 75 INHALE THE CONTENTS OF ONE VIAL VIA NEBU LIZER EVERY 4 TO 6 HOURS NEEDED INHALE THE CONTENTS OF ONE VIAL VIA NEBULIZER EVERY 4 TO 6 HOURS NEEDED SOLD: 05/31/2019 [facility] 50 mg 04/08/2019 12:00:00 AM EST tablet 60 DIRECTED 1 TAB.BY MOUTH IN A.M. AND 3 TABLETS AT BEDTIME DIRECTED 1 TAB.BY MOUTH IN A.M. AND 3 TABLETS AT BEDTIME SOLD: 04/08/2019 [facility] 50 mg 04/08/2019 12:00:00 AM EST tablet 60 DIRECTED 1 TAB.BY MOUTH IN A.M. AND 3 TABLETS AT BEDTIME DIRECTED 1 TAB.BY MOUTH IN A.M. AND 3 TABLETS AT BEDTIME SOLD: 06/04/2019 [facility] 50 mg 04/08/2019 12:00:00 AM EST tablet 60 DIRECTED 1 TAB.BY MOUTH IN A.M. AND 3 TABLETS AT BEDTIME DIRECTED 1 TAB.BY MOUTH IN A.M. AND 3 TABLETS AT BEDTIME SOLD: 06/28/2019 [facility] 50 mg 04/08/2019 12:00:00 AM EST tablet 40 DIRECTED 1 TAB.BY MOUTH IN A.M. AND 3 TABLETS AT BEDTIME DIRECTED 1 TAB.BY MOUTH IN A.M. AND 3 TABLETS AT BEDTIME SOLD: 07/10/2019 [facility] 1 gram 04/08/2019 12:00:00 AM EST tablet 30 TAKE ONE TABLET BY MOUTH TWICE A DAY TAKE ONE TABLET BY MOUTH TWICE A DAY SOLD: 04/08/2019 [facility] 1 gram 04/08/2019 12:00:00 AM EST tablet 30 TAKE ONE TABLET BY MOUTH TWICE A DAY TAKE ONE TABLET BY MOUTH TWICE A DAY SOLD: 06/04/2019 [facility] 50 mg 04/08/2019 12:00:00 AM EST tablet 60 DIRECTED 1 TAB.BY MOUTH IN A.M. AND 3 TABLETS AT BEDTIME DIRECTED 1 TAB.BY MOUTH IN A.M. AND 3 TABLETS AT BEDTIME SOLD: 06/10/2019 [facility] 1 gram 04/08/2019 12:00:00 AM EST tablet 60 TAKE ONE TABLET BY MOUTH TWICE A DAY TAKE ONE TABLET BY MOUTH TWICE A DAY SOLD: 08/26/2019 [facility] 1 gram 04/08/2019 12:00:00 AM EST tablet 60 TAKE ONE TABLET BY MOUTH TWICE A DAY TAKE ONE TABLET BY MOUTH TWICE A DAY SOLD: 07/28/2019 [facility] 1 gram 04/08/2019 12:00:00 AM EST tablet 30 TAKE ONE TABLET BY MOUTH TWICE A DAY TAKE ONE TABLET BY MOUTH TWICE A DAY SOLD: 06/10/2019 [facility] 1 gram 04/08/2019 12:00:00 AM EST tablet 30 TAKE ONE TABLET BY MOUTH TWICE A DAY TAKE ONE TABLET BY MOUTH TWICE A DAY SOLD: 05/19/2019 [facility] 1 gram 04/08/2019 12:00:00 AM EST tablet 30 TAKE ONE TABLET BY MOUTH TWICE A DAY TAKE ONE TABLET BY MOUTH TWICE A DAY SOLD: 07/09/2019 [facility] 1 gram 04/08/2019 12:00:00 AM EST tablet 30 TAKE ONE TABLET BY MOUTH TWICE A DAY TAKE ONE TABLET BY MOUTH TWICE A DAY SOLD: 06/28/2019 [facility] 50 mg 04/08/2019 12:00:00 AM EST tablet 60 DIRECTED 1 TAB.BY MOUTH IN A.M. AND 3 TABLETS AT BEDTIME DIRECTED 1 TAB.BY MOUTH IN A.M. AND 3 TABLETS AT BEDTIME SOLD: 05/04/2019 [facility] Hydromorphone Hydrochloride 4 MG Oral Tablet Hy[facility]romorp nellie HCl 4 MG Hydromorphone HCl 4 MG 04/02/2019 12:00:00 AM EST active 3 tablets eCW1 ([facility]) 10 gram/15 mL 03/06/2019 12:00:00 AM EST solution 675 TAKE 15ML BY MOUTH THREE TIMES A DAY TAKE 15ML BY MOUTH THREE TIMES A DAY SOLD: 10/15/2019 [facility] 10 gram/15 mL 03/06/2019 12:00:00 AM EST solution 675 TAKE 15ML BY MOUTH THREE TIMES A DAY TAKE 15ML BY MOUTH THREE TIMES A DAY SOLD: 08/10/2019 [facility] 10 gram/15 mL 03/06/2019 12:00:00 AM EST solution 675 TAKE 15ML BY MOUTH THREE TIMES A DAY TAKE 15ML BY MOUTH THREE TIMES A DAY SOLD: 07/27/2019 [facility] 10 gram/15 mL 03/06/2019 12:00:00 AM EST solution 675 TAKE 15ML BY MOUTH THREE TIMES A DAY TAKE 15ML BY MOUTH THREE TIMES A DAY SOLD: 07/14/2019 [facility] 100,000 unit/gram 03/06/2019 12:00:00 AM EST powder 30 APPLY TO AFFECTED AREA(S) AROUND STOMA TWO TIMES A DAY DIRECTED UNTIL HEALED APPLY TO AFFECTED AREA(S) AROUND STOMA TWO TIMES A DAY DIRECTED UNTIL HEALED SOLD: 05/04/2019 [facility] 10 gram/15 mL 03/06/2019 12:00:00 AM EST solution 675 TAKE 15ML BY MOUTH THREE TIMES A DAY TAKE 15ML BY MOUTH THREE TIMES A DAY SOLD: 05/31/2019 [facility] 10 gram/15 mL 03/06/2019 12:00:00 AM EST solution 675 TAKE 15ML BY MOUTH THREE TIMES A DAY TAKE 15ML BY MOUTH THREE TIMES A DAY SOLD: 09/10/2019 [facility] 10 gram/15 mL 03/06/2019 12:00:00 AM EST solution 675 TAKE 15ML BY MOUTH THREE TIMES A DAY TAKE 15ML BY MOUTH THREE TIMES A DAY SOLD: 03/28/2019 [facility] 10 gram/15 mL 03/06/2019 12:00:00 AM EST solution 675 TAKE 15ML BY MOUTH THREE TIMES A DAY TAKE 15ML BY MOUTH THREE TIMES A DAY SOLD: 05/12/2019 [facility] 10 gram/15 mL 03/06/2019 12:00:00 AM EST solution 675 TAKE 15ML BY MOUTH THREE TIMES A DAY TAKE 15ML BY MOUTH THREE TIMES A DAY SOLD: 05/04/2019 [facility] 10 gram/15 mL 03/06/2019 12:00:00 AM EST solution 675 TAKE 15ML BY MOUTH THREE TIMES A DAY TAKE 15ML BY MOUTH THREE TIMES A DAY SOLD: 09/21/2019 [facility] 10 gram/15 mL 03/06/2019 12:00:00 AM EST solution 675 TAKE 15ML BY MOUTH THREE TIMES A DAY TAKE 15ML BY MOUTH THREE TIMES A DAY SOLD: 10/02/2019 [facility] 80 mg 03/05/2019 12:00:00 AM EST tablet,chewable 90 CHEW 2 TABLETS BY MOUTH THREE TIMES A DAY AFTER MEALS AND AT BEDTIME NEEDED FOR ABDOMINAL PAIN AND DISTENTION CHEW 2 TABLETS BY MOUTH THREE TIMES A DA Y AFTER MEALS AND AT BEDTIME NEEDED FOR ABDOMINAL PAIN AND DISTENTION SOLD: 05/04/2019 [facility] 80 mg 03/05/2019 12:00:00 AM EST tablet,chewable 72 CHEW 2 TABLETS BY MOUTH THREE TIMES A DAY AFTER MEALS AND AT BEDTIME NEEDED FOR ABDOMINAL PAIN AND DISTENTION CHEW 2 TABLETS BY MOUTH THREE TIMES A DA Y AFTER MEALS AND AT BEDTIME NEEDED FOR ABDOMINAL PAIN AND DISTENTION SOLD: 04/21/2019 [facility] 5 mg/5 mL 03/05/2019 12:00:00 AM EST solution 1080 TAKE 10MLS (2 TEASPOONFULS) BY MOUTH 30 MINUTES BEFORE MEALS AND AT BEDTIME NEEDED TAKE 10MLS (2 TEASPOONFULS) BY MOUTH 30 MINUTES BEFORE MEALS AND AT BEDTIME NEEDED SOLD: 06/22/2019 [facility] 80 mg 03/05/2019 12:00:00 AM EST tablet,chewable 90 CHEW 2 TABLETS BY MOUTH THREE TIMES A DAY AFTER MEALS AND AT BEDTIME NEEDED FOR ABDOMINAL PAIN AND DISTENTION CHEW 2 TABLETS BY MOUTH THREE TIMES A DA Y AFTER MEALS AND AT BEDTIME NEEDED FOR ABDOMINAL PAIN AND DISTENTION SOLD: 05/25/2019 [facility] 80 mg 03/05/2019 12:00:00 AM EST tablet,chewable 150 CHEW 2 TABLETS BY MOUTH THREE TIMES A DAY AFTER MEALS AND AT BEDTIME NEEDED FOR ABDOMINAL PAIN AND DISTENTION CHEW 2 TABLETS BY MOUTH THREE TIMES A DA Y AFTER MEALS AND AT BEDTIME NEEDED FOR ABDOMINAL PAIN AND DISTENTION SOLD: 06/15/2019 [facility] 80 mg 03/05/2019 12:00:00 AM EST tablet,chewable 90 CHEW 2 TABLETS BY MOUTH THREE TIMES A DAY AFTER MEALS AND AT BEDTIME NEEDED FOR ABDOMINAL PAIN AND DISTENTION CHEW 2 TABLETS BY MOUTH THREE TIMES A DA Y AFTER MEALS AND AT BEDTIME NEEDED FOR ABDOMINAL PAIN AND DISTENTION SOLD: 04/05/2019 [facility] 80 mg 03/05/2019 12:00:00 AM EST tablet,chewable 180 CHEW 2 TABLETS BY MOUTH THREE TIMES A DAY AFTER MEALS AND AT BEDTIME NEEDED FOR ABDOMINAL PAIN AND DISTENTION CHEW 2 TABLETS BY MOUTH THREE TIMES A DA Y AFTER MEALS AND AT BEDTIME NEEDED FOR ABDOMINAL PAIN AND DISTENTION SOLD: 07/04/2019 [facility] 80 mg 03/05/2019 12:00:00 AM EST tablet,chewable 180 CHEW 2 TABLETS BY MOUTH THREE TIMES A DAY AFTER MEALS AND AT BEDTIME NEEDED FOR ABDOMINAL PAIN AND DISTENTION CHEW 2 TABLETS BY MOUTH THREE TIMES A DA Y AFTER MEALS AND AT BEDTIME NEEDED FOR ABDOMINAL PAIN AND DISTENTION SOLD: 07/20/2019 [facility] 0.5 mg-3 mg(2.5 mg base)/3 mL 12/23/2018 12:00:0 0 AM EDT solution for nebulization 180 USE 1 VIAL VIA NEBULIZER EVERY 6 HOURS NEEDED USE 1 VIAL VIA NEBULIZER EVERY 6 HOURS NEEDED SOLD: 03/28/2019 [facility] 0.5 mg-3 mg(2.5 mg base)/3 mL 12/23/2018 12:00:0 0 AM EDT solution for nebulization 180 USE 1 VIAL VIA NEBULIZER EVERY 6 HOURS NEEDED USE 1 VIAL VIA NEBULIZER EVERY 6 HOURS NEEDED SOLD: 05/04/2019 [facility] ELECTROLYTES/DEXTROSE 12/22/2018 12:00:00 AM EDT solution 1 5000 DRINK 330MLS BY MOUTH THREE TIMES A DAY DRINK 330MLS BY MOUTH THREE TIMES A DAY SOLD: 04/18/2019 [facility] ELECTROLYTES/DEXTROSE 12/22/2018 12:00:00 AM EDT solution 1 5000 DRINK 330MLS BY MOUTH THREE TIMES A DAY DRINK 330MLS BY MOUTH THREE TIMES A DAY SOLD: 05/03/2019 [facility] ALCOHOL ANTISEPTIC PADS 12/21/2018 12:00:00 AM EDT pads, med icated 100 USE DIRECTED 5 TIMES A DAY NEEDED FOR INJECTIONS USE DIRECTED 5 TIMES A DAY NEEDED FOR INJECTIONS SOLD: 07/06/2019 [facility] ALCOHOL ANTISEPTIC PADS 12/21/2018 12:00:00 AM EDT pads, med icated 100 USE DIRECTED 5 TIMES A DAY NEEDED FOR INJECTIONS USE DIRECTED 5 TIMES A DAY NEEDED FOR INJECTIONS SOLD: 05/04/2019 [facility] Spiriva Respimat 1.25 mcg/actuation inhalation mist ti otropium 0.62032 MG/ACTUAT Metered Dose Inhaler 11/11/2018 08:21:22 AM EDT 2 mists completed Spiriva Respimat JUAN DANIEL ([facility] 12 % 10/30/2018 12:00:00 AM EDT lotion 400 APPLY TO AFFECTED AREA TWO TIMES A DAY APPLY TO AFFECTED AREA TWO TIMES A DAY SOLD: 04/14/2019 [facility] 12 % 10/30/2018 12:00:00 AM EDT lotion 400 APPLY TO AFFECTED AREA TWO TIMES A DAY APPLY TO AFFECTED AREA TWO TIMES A DAY SOLD: 05/04/2019 [facility] Fluconazole 150 MG Oral Tablet [Diflucan] Diflucan 150 MG Diflucan 15 0 MG active 1 tablet eCW1 ([facility]) Insurance Providers Payer name Policy type / Coverage type Policy ID Covered green party ID Covered green party's relationship to joe Policy Joe Plan Information [facility] [id number] SP [id number] [facility] O [id number] S [id number] [facility] Other 0 Self 0 [facility]AN [facility] [id number] SP [id number] [facility] [id number] SP [id number] [facility] COMMUN[facility] PLAN [facility] [id number] SP [id number] [facility] [id number] SP [id number] [facility] COMMUNITY PL[facility] [id number] SP [id number] EMEDNY [id number] SP [id number] SP [facility] [id number] S [id number] [facility] [id number] SP [id number] MEDICAID [id number] SP [id number] [facility] [id number] SP [id number] MEDICAID [id number] SP [id number] [facility] [id number] Blue Cross/Blue Shield [id number] Medicaid [id number] Medicaid 2..[id number] [facility] [id number] Preferred Provider Organization (PPO) [id number] [facility]-Medicaid [id number] [facility]-Medicaid [id number] [facility]-Medicaid [id number] [facility]-Medicaid [id number] [facility]-Medicaid [id number] [facility]-Medicaid [id number] [facility]-Medicaid [id number] [facility]-Medicaid [id number] ANSI-Medicaid [id number] ANSI-Medicaid [id number] ANSI-Medicaid [id number] ANSI-Medicaid [id number] ANSI-Medicaid [id number] ANSI-Medicaid [id number] ANSI-Medicaid [id number] ANSI-Medicaid [id number] ANSI-Medicaid [id number] ANSI-Medicaid [id number] ANSI-Medicaid [id number] ANSI-Medicaid [id number] ANSI-Medicaid [id number] ANSI-Medicaid [id number] ANSI-Medicaid [id number] ANSI-Medicaid [id number] ANSI-Medicaid [id number] [facility] [id number] ANSI-Medicaid [id number] [facility] Commercial [id number] [facility] [id number] ANSI-Medicaid [id number] ANSI-Medicaid [id number] ANSI-Medicaid [id number] ANSI-Medicaid [id number] ANSI-Medicaid [id number] ANSI-Medicaid [id number] ANSI-Medicaid [id number] ANSI-Medicaid [id number] ANSI-Medicaid [id number] ANSI-Medicaid [id number] [facility] [id number] ANSI-Medicaid [id number] ANSI-Medicaid [id number] ANSI-Medicaid [id number] [facility] [id number] Self [id number] ANSI-Medicaid [id number] ANSI-Medicaid [id number] ANSI-Medicaid [id number] ANSI-Medicaid [id number] ANSI-Medicaid [id number] ANSI-Medicaid [id number] ANSI-Medicaid [id number] ANSI-Medicaid [id number] ANSI-Medicaid [id number] ANSI-Medicaid [id number] [facility] [id number] Self [id number] ANSI-Medicaid [id number] ANSI-Medicaid [id number] ANSI-Medicaid [id number] ANSI-Medicaid [id number] ANSI-Medicaid [id number] ANSI-Medicaid [id number] ANSI-Medicaid [id number] ANSI-Medicaid [id number] ANSI-Medicaid [id number] ANSI-Medicaid [id number] ANSI-Medicaid [id number] ANSI-Medicaid [id number] ANSI-Medicaid [id number] ANSI-Medicaid [id number] ANSI-Medicaid [id number] ANSI-Medicaid [id number] ANSI-Medicaid [id number] [facility] COMM[facility]ITY [facility] [id number] ANSI-Medicaid [id number] ANSI-Medicaid [id number] ANSI-Medicaid [id number] ANSI-Medicaid [id number] ANSI-Medicaid [id number] ANSI-Medicaid [id number] [facility] [id number] Self [id number] ANSI-Medicaid [id number] ANSI-Medicaid [id number] ANSI-Medicaid [id number] ANSI-Medicaid [id number] ANSI-Medicaid [id number] [facility] [id number] ANSI-Medicaid [id number] ANSI-Medicaid [id number] ANSI-Medicaid [id number] ANSI-Medicaid [id number] ANSI-Medicaid [id number] ANSI-Medicaid [id number] ANSI-Medicaid [id number] ANSI-Medicaid [id number] ANSI-Medicaid [id number] [facility] Commercial [id number] Self [id number] ANSI-Medicaid [id number] ANSI-Medicaid [id number] ANSI-Medicaid [id number] ANSI-Medicaid [id number] ANSI-Medicaid [id number] ANSI-Medicaid [id number] ANSI-Medicaid [id number] ANSI-Medicaid [id number] ANSI-Medicaid [id number] ANSI-Medicaid [id number] ANSI-Medicaid [id number] ANSI-Medicaid [id number] ANSI-Medicaid [id number] [employer] COMMUNITY PLAN MCDHMO [id number] SP [id number] ANSI-Medicaid [id number] ANSI-Medicaid [id number] ANSI-Medicaid [id number] [facility] [id number] Self [id number] ANSI-Medicaid [id number] ANSI-Medicaid [id number] ANSI-Medicaid [id number] [employer] COMMUNITY PLAN MCDHMO [id number] SP [id number] [facility] Commercial [id number] Self [id number] UN[employer] COMMUNITY PLAN MCDHMO [id number] SP [id number] [facility]mo Commercial [id number] Self [id number] UN[employer] COMMUNITY PLAN MCDHMO [id number] SP [id number] [facility] o Commercial [id number] Self [id number] UN[employer] COMMUNITY PLAN MCDHMO [id number] SP [id number] UN[facility] COMMUNITY PLAN MCDHMO [id number] SP [id number] [facility] [id number] Self [id number] UN[facility] COMMUNITY PLAN MCDHMO [id number] SP [id number] [facility] [id number] Self [id number] UN[facility] COMMUNITY PLAN MCDHMO [id number] SP [id number] UNHC COMMUNITY PLAN MCDHMO [id number] SP [id number] [facility]mo Commercial [id number] Self [id number] [facility] Hmo Commercial [id number] Self [id number] UNHC COMMUNITY PLAN MCDHMO [id number] SP [id number] [facility] Hmo Commercial Self BS Shi Hmo Blue Option Medigap Part B Self Medicaid [place] Medigap Part B Self [facility] Community Plan Commercial Self UNHC COMMUNITY PLAN MCDHMO UNHC COMMUNITY PLAN MCDHMO Self [place] UNHC COMMUNITY PLAN MCDHMO [place] Medigap Part B Self BS Shi Hmo Blue Option Medigap Part B Self [facility] Community Plan Commercial Self UNHC COMMUNITY PLAN MCDHMO [id number] SP [id number] UNHC COMMUNITY PLAN MCDHMO [id number] SP [id number] UNHC COMMUNITY PLAN MCDHMO [id number] SP [id number] UNHC COMMUNITY PLAN MCDHMO [id number] SP [id number] [facility] Shi/MCR Medigap Part B Self Medicaid [place] Medicaid Self [facility] Hmo Commercial Self UHC I [id number] Self [id number] UNITED H [id number] Self [id number] UNITED H [id number] Self [id number] Uhc-Community Plan-Shi Commercial Self BLUE CROSS [place] PLAN [id number] SP [id number] EXCELLUS BCBS P [id number] S [id number] [id number] HMO BLUE [id number] SP [id number] UNHC COMMUNITY PLAN MCDHMO [id number] SP [id number] Problems, Conditions, and Diagnoses Code Display Name Description Problem Type Effective Dates Data Source(s) Corns and callosities Corns and callosities Problem 03/30/2020 12:00:00 AM EST MEDENT ([facility] 544630216 Onychomycosis Onychomycosis Problem 03/30/2020 12:00:00 AM EST [facility] ([facility] G89.29 28113291 Other chronic pain Problem 03/28/2020 12:00: 00 AM EST eCW1 ([facility]) 379.21 Vitreous Disorders Degeneration Vitreous Disorders Deg eneration Problem 03/21/2020 12:00:00 AM EST JUAN DANIEL (Jhony Lowery MD [facility]) 368.12 Transient Visual Loss Transient Visual Loss Problem 03/21/2020 12:00:00 AM EST JUAN DANIEL (Jhony Lowery MD [facility]) 375.15 Dry Eye Syndrome Dry Eye Syndrome Problem 03/21/2020 12 :00:00 AM EST JUAN DANIEL (Jhony Lowery MD [facility]) 366.16 Cataract Senile Nuclear Cataract Senile Nuclear Proble m 03/21/2020 12:00:00 AM EST JUAN DANIEL (Jhony Lowery MD [facility]) 828759838 Long-term current use of insulin (situat ion) Taking Medication For Diabetes Long-term Use of Insulin Problem 03/21/2020 12:00:00 AM EST JUAN DANIEL (Jhony Lowery MD [facility]) 250.00 Diabetes Mellitus Type 2 Without Complic ation Diabetes Mellitus Type 2 Without Complication Problem 03/21/2020 12:00:00 AM EST JUAN DANIEL (Champ Lowery MD [facility]) 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 Problem 03/21/2020 12:00:00 AM EST JUAN DANIEL (Jhony Lowery MD [facility]) 544843053 Complex regional pain syndrome type I Co mplex regional pain syndrome type I Problem 03/17/2020 12:00:00 AM EST MEDENT ([facility], ) R29.6 559101420 Falls frequently Problem 01/16/2020 12:00:00 AM EDT eCW1 ([facility]) L71.9 081290792 Rosacea Problem 11/02/2019 12:00:00 AM ED T eCW1 ([facility]) K43.0 206056451 Incisional hernia with obstruction but no gangrene Problem 10/21/2019 12:00:00 AM EDT eCW1 ([facility]) N95.2 752218305 Vaginal atrophy Problem 10/01/2019 12:00:00 AM EDT eCW1 ([facility]) M54.2 99145235 Cervicalgia Problem 07/29/2019 12:00:00 AM E DT eCW1 ([facility]) M54.2 99009863 Cervicalgia Problem 07/29/2019 12:00:00 AM E DT eCW1 ([facility]) L20.82 54251659 Flexural eczema Problem 07/23/2019 12:00:00 AM EDT eCW1 ([facility]) L20.82 31248037 Flexural eczema Problem 07/23/2019 12:00:00 AM EDT eCW1 ([facility]) Type 2 diabetes mellitus with diabetic p olyneuropathy Type 2 diabetes mellitus with diabetic polyneuropathy Problem 06/11/2019 12:00:00 AM EST MED ENT ([facility] 671855396 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 06/11/2019 12:00:00 AM EST MED[facility] ([facility] Surgeries/Procedures Procedure Description Date Indications Data Source(s) PROCTOSGMDSC RGD DX W/WO COLLJ SPEC BR/WA SPX 03/30/20 12:00:00 AM EST MEDENT ([facility]) Surgical / procedural history Scalp Alvaro or 1985, Lumpectomies, Total Hysterectomy, Bilateral Sympathectomy 1987, AV Fistula Repair 1988, Cholecystectomy , SBC 2001, Abdominal Hernia Repair 2004, Ventral Hernia Repair 2009, Dorsal Column Stimulator Taken out new put in 02/2010, Small Bowel Resected 06/2010, Hernia Repair x2 08/2010, Parastomal Hernia Repair with Small Bowel Obstruction 03/2017, Infusaport Placement 08/2017, Hernia Repair x4 and Stoma Reversal 10/2017, Battery Replacement for Stimulator 02/2018 Surgical / procedural history Scalp Tumor 1985, Lumpectomies, Total Hysterectomy, Bilateral Sympathectomy 1987, AV Fistula Repair 1988, Cholecystectomy , SBC 2001, Abdominal Hernia Repair 2004, Ventral Hernia Repair 2009, Dorsal Column Stimulator Taken out new put in 02/2010, Small Bowel Resected 06/2010, Hernia Repair x2 08/2010, Parastomal Hernia Repair with Small Bowel Obstruction 03/2017, Infusaport Placement 08/2017, Hernia Repair x4 and Stoma Reversal 10/2017, Battery Replacement for Stimulator 02/201803/21/2020 12:00:00 AM EST JUAN DANIEL (Jhony Lowery MD [facility]) Medical Eye Exam Medical Eye Exam 03/21/2020 12:00:00 AM EST JUAN DANIEL (Jhony Lowery MD [facility]) Sigmoidoscopy, Flexible;Diagnostic W/Or W/O Collection Of Sp ecime 02/17/2020 12:00:00 AM EST MEDENT ([facility], ) Hernia Recurr Ventral/Incisional, Reducible 12/21/2019 12:00:00 AM EDT MEDENT ([facility], ) Implantation Of Mesh Or Other Prosthesis For Incisional Or V entra 12/21/2019 12:00:00 AM EDT MED[facility] ([facility], ) RADEX FOOT COMPLETE MINIMUM 3 VIEWS 12/14/2019 12:00:0 0 AM EDT [facility] ([facility] RADEX FOOT COMPLETE MINIMUM 3 VIEWS 10/11/2019 12:00:0 0 AM EDT [facility] ([facility] NO CHARGE VISIT 09/13/2019 12:00:00 AM EDT eCW1 ([facility]) RADEX FOOT COMPLETE MINIMUM 3 VIEWS 08/30/2019 12:00:0 0 AM EDT [facility] ([facility] Medication: Toradol 60mg/2mL IM (Ketorolac) 07/30/2019 12:00:00 AM EDT eCW1 ([facility]) RADEX FOOT COMPLETE MINIMUM 3 VIEWS 07/29/2019 12:00:0 0 AM EDT [facility] ([facility] PHYSICIAN TELEPHONE EVALUATION 11-20 MIN 07/28/2019 12 :00:00 AM EDT eCW1 ([facility]) MARSUPIALIZATION BARTHOLINS GLAND CYST 07/16/2019 12:0 0:00 AM EDT eCW1 ([facility]) ESTABILISHED PATIENT [facility] CHARGE 020 12:00:00 AM EDT eCW1 ([facility]) RADEX FOOT COMPLETE MINIMUM 3 VIEWS 06/25/2019 12:00:0 0 AM EDT [facility] ([facility] RADEX FOOT COMPLETE MINIMUM 3 VIEWS 05/28/2019 12:00:0 0 AM EST [facility] ([facility] Results ID Date Data Source [id number] 02/12/2020 09:30:00 AM EDT [facility] Name Value Range Interpretation Code Description Data Yun rce(s) Supporting Document(s) SARS coronavirus 2 RNA [facility] This lab was ordered by [facility] and reported by [facility]. ID Date Data Source [id number] 12/22/2019 11:14:00 AM EDT MED[facility] ([facility]) Name Value Range Interpretation Code Description Data Yun rce(s) Supporting Document(s) Glucose [Mass/volume] in Capillary blood by Glucometer 256 mg/dL 70-105 Above high normal MED[facility] ([facility]) ID Date Data Source [id number] 12/22/2019 05:30:00 AM EDT MED[facility] ([facility]) Name Value Range Interpretation Code Description Data Yun rce(s) Supporting Document(s) Glucose [Mass/volume] in Capillary blood by Glucometer 260 mg/dL 70-105 Above high normal [facility] ([facility]) ID Date Data Source [id number] 12/21/2019 08:23:00 PM EDT [facility] ([facility]) Name Value Range Interpretation Code Description Data Yun rce(s) Supporting Document(s) Glucose [Mass/volume] in Capillary blood by Glucometer 214 mg/dL 70-105 Above high normal [facility] ([facility]) ID Date Data Source [id number] 12/21/2019 04:52:00 PM EDT [facility] ([facility]) Name Value Range Interpretation Code Description Data Yun rce(s) Supporting Document(s) Glucose [Mass/volume] in Capillary blood by Glucometer 126 mg/dL 70-105 Above high normal [facility] ([facility]) ID Date Data Source [id number] 12/21/2019 02:58:00 PM EDT [facility] ([facility]) Name Value Range Interpretation Code Description Data Yun rce(s) Supporting Document(s) Glucose [Mass/volume] in Capillary blood by Glucometer 159 mg/dL 70-105 Above high normal [facility] ([facility]) ID Date Data Source [id number] 12/21/2019 12:40:00 PM EDT [facility]) Name Value Range Interpretation Code Description Data Yun rce(s) Supporting Document(s) Glucose [Mass/volume] in Capillary blood by Glucometer 185 mg/dL 70-105 Above high normal [facility] ([facility]) ID Date Data Source [id number] 12/21/2019 10:29:00 AM EDT [facility] ([facility]) Name Value Range Interpretation Code Description Data Yun rce(s) Supporting Document(s) Glucose [Mass/volume] in Capillary blood by Glucometer 203 mg/dL 70-105 Above high normal [facility] ([facility]) ID Date Data Source [id number] 12/16/2019 09:00:00 AM EDT [facility] Name Value Range Interpretation Code Description Data Yun rce(s) Supporting Document(s) SARS coronavirus 2 RNA [facility] This lab was ordered by [facility] and reported by [facility]. ID Date Data Source [id number] 2019 12:00:00 AM EDT [facility] Name Value Range Interpretation Code Description Data Yun rce(s) Supporting Document(s) SARS CORONAVIRUS 2 RNA [facility] This lab was ordered by [facility] and reported by [facility]. ID Date Data Source RHYS PREP 09/12/2019 11:46:06 AM EDT [facility]CW[facility] Name Value Range Interpretation Code Description Data Yun rce(s) Supporting Document(s) Positive Clue Cells eCW1 ([facility]) Hyphae eCW1 ([facility]) pH eCW1 ([facility]) Budding Yeast Forms eCW1 ([facility]) Trichomonas eCW1 ([facility]) Epithelial Cell Description eC W1 ([facility]) RBC eCW1 ([facility]) Positive Sniff eCW1 ([facility]) WBC eCW1 ([facility]) ID Date Data Source CHLAMYDIA & GC DNA AMPLIFICAT 09/10/2019 09:32:55 AM EDT eCW 1 ([facility]) Name Value Range Interpretation Code Description Data Yun rce(s) Supporting Document(s) Chlamydia trachomatis rRNA [Presence] in Unspecified specimen by Probe and target amplification method NEGATIVE eCW1 ([facility]) ID Date Data Source Urinalysis, no micro 09/10/2019 05:32:51 AM EDT eCW1 ([facility]) Name Value Range Interpretation Code Description Data Yun rce(s) Supporting Document(s) 1.015 1.015 eCW1 ([facility]) Spec gravity neg neg eCW1 ([facility]) Protein neg pos eCW1 ([facility]) Nitrate 5 6 eCW1 ([facility]) pH + ++ eCW1 ([facility]) Leukocyte neg neg eCW1 ([facility]) Ketones norm norm eCW1 ([facility]) Urobili 1000 norm eCW1 ([facility]) Glucose neg 50 eCW1 ([facility]) Blood neg neg eCW1 ([facility]) Bilirubin yes eCW1 ([facility]) Internal QC Acceptable (Y/N) ID Date Data Source PAIN MGMT UR 10 PANEL [id number] 08/20/2019 06:48:24 AM EDT eC W1 ([facility]) Name Value Range Interpretation Code Description Data Uyn rce(s) Supporting Document(s) Negative AMPHETAMINE SCREEN, URINE eCW1 ([facility]) Negative BARBITURATES SCREEN, URINE eCW 1 ([facility]) Negative BENZODIAZEPINES, URINE SC REEN eCW1 ([facility]) Negative CANNABINOID SCREEN, URINE eCW1 ([facility]) See Final Results OPIATE SCREEN, URI NE eCW1 ([facility]) Negative COCAINE SCREEN, URINE eCW1 ([facility]) Negative PCP SCREEN, URINE eCW1 ([facility]) Negative OXYCODONE, SCREEN, URINE eCW1 ([facility]) Negative PROPOXYPHENE URINE, SCREEN eCW 1 ([facility]) Negative METHADONE, URINE SCREEN eCW1 ( [facility]) Procedure Social History Code Duration Value Status Description Data Source(s ) Smoking 05/22/2020 12:00:00 AM EST Never Smoker completed Never S moker eCW1 ([facility]) Smoking 05/11/2020 12:00:00 AM EST Never Smoker completed Never S moker eCW1 ([facility]) Smoking 05/11/2020 12:00:00 AM EST Never Smoker completed Never S moker eCW1 ([facility]) Smoking 04/12/2020 12:00:00 AM EST Never Smoker completed Never S moker eCW1 ([facility]) Smoking 04/12/2020 12:00:00 AM EST Never Smoker completed Never S moker eCW1 ([facility]) Smoking 04/12/2020 12:00:00 AM EST Never Smoker completed Never S moker eCW1 ([facility]) Smoking 04/12/2020 12:00:00 AM EST Never Smoker completed Never S moker eCW1 ([facility]) Smoking 04/12/2020 12:00:00 AM EST Never Smoker completed Never S moker eCW1 ([facility]) Smoking 04/12/2020 12:00:00 AM EST Never Smoker completed Never S moker eCW1 ([facility]) Smoking 04/12/2020 12:00:00 AM EST Never Smoker completed Never S moker eCW1 ([facility]) Smoking 04/12/2020 12:00:00 AM EST Never Smoker completed Never S moker eCW1 ([facility]) Smoking 04/12/2020 12:00:00 AM EST Never Smoker completed Never S moker eCW1 ([facility]) Smoking 04/12/2020 12:00:00 AM EST Never Smoker completed Never S moker eCW1 ([facility]) Smoking 04/12/2020 12:00:00 AM EST Never Smoker completed Never S moker eCW1 ([facility]) Smoking 04/12/2020 12:00:00 AM EST Never Smoker completed Never S moker eCW1 ([facility]) Smoking 04/12/2020 12:00:00 AM EST Never Smoker completed Never S moker eCW1 ([facility]) Smoking 04/12/2020 12:00:00 AM EST Never Smoker completed Never S moker eCW1 ([facility]) Smoking 04/12/2020 12:00:00 AM EST Never Smoker completed Never S moker eCW1 ([facility]) Smoking 04/12/2020 12:00:00 AM EST Never Smoker completed Never S moker eCW1 ([facility]) Smoking 04/12/2020 12:00:00 AM EST Never Smoker completed Never S moker eCW1 ([facility]) Smoking 03/28/2020 12:00:00 AM EST Never Smoker completed Never S moker eCW1 ([facility]) Smoking 03/28/2020 12:00:00 AM EST Never Smoker completed Never S moker eCW1 ([facility]) Smoking 03/28/2020 12:00:00 AM EST Never Smoker completed Never S moker eCW1 ([facility]) Smoking 03/28/2020 12:00:00 AM EST Never Smoker completed Never S moker eCW1 ([facility]) Smoking 03/28/2020 12:00:00 AM EST Never Smoker completed Never S moker eCW1 ([facility]) Smoking 03/28/2020 12:00:00 AM EST Never Smoker completed Never S moker eCW1 ([facility]) Smoking 03/21/2020 10:24:52 AM EST Never smoked tobacco (findi ng) completed Never smoked tobacco (roc) JUAN DANIEL (Jhony Lowery MD [facility]) Smoking 03/20/2020 12:00:00 AM EST Never Smoker completed Never S moker eCW1 ([facility]) Smoking 03/20/2020 12:00:00 AM EST Never Smoker completed Never S moker eCW1 ([facility]) Smoking 03/20/2020 12:00:00 AM EST Never Smoker completed Never S moker eCW1 ([facility]) Smoking 03/20/2020 12:00:00 AM EST Never Smoker completed Never S moker eCW1 ([facility]) Smoking 03/20/2020 12:00:00 AM EST Never Smoker completed Never S moker eCW1 ([facility]) Smoking 03/17/2020 12:00:00 AM EST Never Smoker completed Never S moker eCW1 ([facility]) Smoking 02/17/2020 12:00:00 AM EST Never Smoker completed Never S moker eCW1 ([facility]) Smoking 02/17/2020 12:00:00 AM EST Never Smoker completed Never S moker eCW1 ([facility]) Smoking 02/17/2020 12:00:00 AM EST Never Smoker completed Never S moker eCW1 ([facility]) Smoking 01/26/2020 12:00:00 AM EDT Never Smoker completed Never S moker eCW1 ([facility]) Smoking 01/26/2020 12:00:00 AM EDT Never Smoker completed Never S moker eCW1 ([facility]) Smoking 01/26/2020 12:00:00 AM EDT Never Smoker completed Never S moker eCW1 ([facility]) Smoking 01/26/2020 12:00:00 AM EDT Never Smoker completed Never S moker eCW1 ([facility]) Smoking 01/26/2020 12:00:00 AM EDT Never Smoker completed Never S moker eCW1 ([facility]) Smoking 01/26/2020 12:00:00 AM EDT Never Smoker completed Never S moker eCW1 ([facility]) Smoking 01/24/2020 12:00:00 AM EDT Never Smoker completed Never S moker eCW1 ([facility]) Smoking 01/24/2020 12:00:00 AM EDT Never Smoker completed Never S moker eCW1 ([facility]) Smoking 11/01/2019 12:00:00 AM EDT Never Smoker completed Never S moker eCW1 ([facility]) Smoking 11/01/2019 12:00:00 AM EDT Never Smoker completed Never S moker eCW1 ([facility]) Smoking 11/01/2019 12:00:00 AM EDT Never Smoker completed Never S moker eCW1 ([facility]) Smoking 11/01/2019 12:00:00 AM EDT Never Smoker completed Never S moker eCW1 ([facility]) Smoking 11/01/2019 12:00:00 AM EDT Never Smoker completed Never S moker eCW1 ([facility]) Smoking 11/01/2019 12:00:00 AM EDT Never Smoker completed Never S moker eCW1 ([facility]) Smoking 11/01/2019 12:00:00 AM EDT Never Smoker completed Never S moker eCW1 ([facility]) Smoking 10/25/2019 12:00:00 AM EDT Never Smoker completed Never S moker eCW1 ([facility]) Smoking 10/25/2019 12:00:00 AM EDT Never Smoker completed Never S moker eCW1 ([facility]) Smoking 10/25/2019 12:00:00 AM EDT Never Smoker completed Never S moker eCW1 ([facility]) Smoking 10/25/2019 12:00:00 AM EDT Never Smoker completed Never S moker eCW1 ([facility]) Smoking 10/01/2019 12:00:00 AM EDT Never Smoker completed Never S moker eCW1 ([facility]) Smoking 10/01/2019 12:00:00 AM EDT Never Smoker completed Never S moker eCW1 ([facility]) Smoking 10/01/2019 12:00:00 AM EDT Never Smoker completed Never S moker eCW1 ([facility]) Smoking 10/01/2019 12:00:00 AM EDT Never Smoker completed Never S moker eCW1 ([facility]) Smoking 09/27/2019 12:00:00 AM EDT Never Smoker completed Never S moker eCW1 ([facility]) Smoking 09/27/2019 12:00:00 AM EDT Never Smoker completed Never S moker eCW1 ([facility]) Smoking 09/27/2019 12:00:00 AM EDT Never Smoker completed Never S moker eCW1 ([facility]) Smoking 09/27/2019 12:00:00 AM EDT Never Smoker completed Never S moker eCW1 ([facility]) Smoking 09/27/2019 12:00:00 AM EDT Never Smoker completed Never S moker eCW1 ([facility]) Smoking 09/17/2019 12:00:00 AM EDT Never Smoker completed Never S moker eCW1 ([facility]) Smoking 09/17/2019 12:00:00 AM EDT Never Smoker completed Never S moker eCW1 ([facility]) Smoking 09/17/2019 12:00:00 AM EDT Never Smoker completed Never S moker eCW1 ([facility]) Smoking 09/17/2019 12:00:00 AM EDT Never Smoker completed Never S moker eCW1 ([facility]) Smoking 09/17/2019 12:00:00 AM EDT Never Smoker completed Never S moker eCW1 ([facility]) Smoking 09/17/2019 12:00:00 AM EDT Never Smoker completed Never S moker eCW1 ([facility]) Smoking 09/17/2019 12:00:00 AM EDT Never Smoker completed Never S moker eCW1 ([facility]) Vital Signs ID Date Data Source UNK Name Value Range Interpretation Code Description Data Source(s) Body surface area Derived from formula 1.95 m2 1.95 m2 [facility] ([facility]) Body weight 83.236 kg 83.236 kg [facility] ([facility]) [place] body weight 135 [lb_av] 135 [lb_av] MED[facility] T ([facility]) Body mass index (BMI) [Ratio] 28.7 kg/m2 28.7 k g/m2 [facility] ([facility]) Body weight 183.50 [lb_av] 183.50 [lb_av] MEDEN T ([facility]) Body height 67 [in_i] 67 [in_i] [facility] ([facility]) 5'7" Heart rate 103 /min 103 /min [facility] ([facility]) Diastolic blood pressure 73 mm[Hg] 73 mm[Hg] [facility] ([facility]) Systolic blood pressure 118 mm[Hg] 118 mm[Hg] [facility] Body surface area Derived from formula 1.94 m2 1.94 m2 [facility] ([facility]) Body weight 82.328 kg 82.328 kg [facility] ([facility]) [place] body weight 135 [lb_av] 135 [lb_av] MEDEN T ([facility]) Body mass index (BMI) [Ratio] 28.4 kg/m2 28.4 k g/m2 [facility] ([facility]) Body weight 181.50 [lb_av] 181.50 [lb_av] MED[facility] T ([facility]) Body height 67 [in_i] 67 [in_i] [facility] ([facility]) 5'7" Diastolic blood pressure 84 mm[Hg] 84 mm[Hg] [facility] ([facility]) Systolic blood pressure 126 mm[Hg] 126 mm[Hg] [facility] ([facility]) Diastolic blood pressure 76 mm[Hg] 76 mm[Hg] eCW1 ([facility]) Systolic blood pressure 112 mm[Hg] 112 mm[Hg] e CW1 ([facility]) Body temperature 97.3 [degF] 97.3 [degF] eCW1 ( [facility]) Respiratory rate 17 /min 17 /min eCW1 ([facility]) Heart rate 102 /min 102 /min eCW1 ([facility]) Body mass index (BMI) [Ratio] 28.66 kg/m2 28.66 kg/m2 W1 ([facility]) Body height 67 [in_i] 67 [in_i] eCW1 [facility] Body weight 183 [lb_av] 183 [lb_av] eCW1 ([facility]) Body mass index (BMI) [Ratio] 25.1 kg/m2 25.1 k g/m2 [facility] ([facility]) Body weight 160.00 [lb_av] 160.00 [lb_av] MED[facility] T ([facility]) Body height 67 [in_i] 67 [in_i] [facility] ([facility]) 5'7" Respiratory rate 18 /min 18 /min [facility] ( [facility]) Body temperature 98.2 [degF] 98.2 [degF] [facility] ([facility]) Heart rate 103 /min 103 /min [facility] ([facility]) Diastolic blood pressure 81 mm[Hg] 81 mm[Hg] [facility] ([facility]) Systolic blood pressure 129 mm[Hg] 129 mm[Hg] M EDENT ([facility]) Diastolic blood pressure 69 mm[Hg] 69 mm[Hg] eCW1 ([facility]) Systolic blood pressure 139 mm[Hg] 139 mm[Hg] e CW1 ([facility]) Body temperature 97.0 [degF] 97.0 [degF] eCW1 ( [facility]) Respiratory rate 18 /min 18 /min eCW1 ([facility]) Heart rate 99 /min 99 /min eCW1 ([facility]) Body mass index (BMI) [Ratio] 28.47 kg/m2 28.47 kg/m2 eCW1 ([facility]) Body height 67 [in_i] 67 [in_i] eCW1 ([facility] Body weight 181.8 [lb_av] 181.8 [lb_av] eCW1 ([facility]) Diastolic blood pressure 68 mm[Hg] 68 mm[Hg] eCW1 ([facility]) Systolic blood pressure 126 mm[Hg] 126 mm[Hg] e CW1 ([facility]) Body temperature 98.1 [degF] 98.1 [degF] eCW1 ( [facility]) Respiratory rate 18 /min 18 /min eCW1 ([facility]) Heart rate 104 /min 104 /min eCW1 ([facility]) Body mass index (BMI) [Ratio] 27.41 kg/m2 27.41 kg/m2 eCW1 ([facility]) Body height 67 [in_i] 67 [in_i] eCW1 ([facility] Body weight 175 [lb_av] 175 [lb_av] eCW1 ([facility]) [place] body weight 130 [lb_av] 130 [lb_av] MED[facility] T ([facility]) Body mass index (BMI) [Ratio] 27.4 kg/m2 27.4 k g/m2 [facility] ([facility]) Body weight 170.00 [lb_av] 170.00 [lb_av] MED[facility] T ([facility]) Body height 66 [in_i] 66 [in_i] [facility] ([facility]) 5'6" Respiratory rate 12 /min 12 /min [facility] Body surface area Derived from formula 1.93 m2 1.93 m2 [facility] ([facility]) Body weight 81.251 kg 81.251 kg [facility] ([facility]) [place] body weight 135 [lb_av] 135 [lb_av] [facility] T ([facility]) Body mass index (BMI) [Ratio] 28.1 kg/m2 28.1 k g/m2 [facility] Body weight 179.12 [lb_av] 179.12 [lb_av] [facility] T ([facility]) Body height 67 [in_i] 67 [in_i] [facility] ([facility]) 5'7" Diastolic blood pressure 79 mm[Hg] 79 mm[Hg] [facility] Systolic blood pressure 139 mm[Hg] 139 mm[Hg] M [facility] ([facility]) Diastolic blood pressure 70 mm[Hg] 70 mm[Hg] eCW1 ([facility]) Systolic blood pressure 116 mm[Hg] 116 mm[Hg] e CW1 ([facility]) Body temperature 97.3 [degF] 97.3 [degF] eCW1 ( [facility]) Respiratory rate 18 /min 18 /min eCW1 ([facility]) Heart rate 103 /min 103 /min eCW1 ([facility]) Body mass index (BMI) [Ratio] 27.11 kg/m2 27.11 kg/m2 eCW1 ([facility]) Body height 67 [in_i] 67 [in_i] eCW1 ([facility]) Body weight 173.08 [lb_av] 173.08 [lb_av] eCW1 ([facility]) Diastolic blood pressure 78 mm[Hg] 78 mm[Hg] eCW1 ([facility]) Systolic blood pressure 112 mm[Hg] 112 mm[Hg] e CW1 ([facility]) Body temperature 97.1 [degF] 97.1 [degF] eCW1 ( [facility]) Respiratory rate 18 /min 18 /min eCW1 ([facility]) Heart rate 102 /min 102 /min eCW1 ([facility]) Body mass index (BMI) [Ratio] 27.37 kg/m2 27.37 kg/m2 W1 ([facility]) Body height 67 [in_i] 67 [in_i] eCW1 ([facility]) Body weight 174.8 [lb_av] 174.8 [lb_av] eCW1 ([facility]) Diastolic blood pressure 68 mm[Hg] 68 mm[Hg] eCW1 ([facility]) Systolic blood pressure 147 mm[Hg] 147 mm[Hg] e CW1 ([facility]) Body temperature 97.0 [degF] 97.0 [degF] eCW1 ( [facility]) Respiratory rate 18 /min 18 /min eCW1 ([facility]) Heart rate 99 /min 99 /min eCW1 ([facility]) Body mass index (BMI) [Ratio] 27.03 kg/m2 27.03 kg/m2 eCW1 ([facility]) Body height 67 [in_i] 67 [in_i] eCW1 ([facility]) Body weight 172.6 [lb_av] 172.6 [lb_av] eCW1 ([facility]) Body surface area Derived from formula 1.90 m2 1.90 m2 [facility] ([facility]) Body weight 78.189 kg 78.189 kg [facility] ([facility]) [place] body weight 135 [lb_av] 135 [lb_av] [facility] T ([facility]) Body mass index (BMI) [Ratio] 27.0 kg/m2 27.0 k g/m2 [facility] ([facility]) Body weight 172.38 [lb_av] 172.38 [lb_av] [facility] T ([facility]) Body height 67 [in_i] 67 [in_i] [facility] 5'7" Diastolic blood pressure 80 mm[Hg] 80 mm[Hg] [facility] ([facility]) Systolic blood pressure 142 mm[Hg] 142 mm[Hg] [facility] Body weight 78.246 kg 78.246 kg [facility] ([facility]) [place] body weight 135 [lb_av] 135 [lb_av] [facility] T ([facility]) Body mass index (BMI) [Ratio] 27.0 kg/m2 27.0 k g/m2 [facility] ([facility]) Body weight 172.50 [lb_av] 172.50 [lb_av] [facility] ([facility]) Body height 67 [in_i] 67 [in_i] [facility]) 5'7" Diastolic blood pressure 86 mm[Hg] 86 mm[Hg] [facility] ([facility]) Systolic blood pressure 151 mm[Hg] 151 mm[Hg] M [facility]ENT ([facility]) Body weight 80.401 kg 80.401 kg [facility] ([facility]) Body mass index (BMI) [Ratio] 27.8 kg/m2 27.8 k g/m2 [facility] ([facility]) Body weight 177.25 [lb_av] 177.25 [lb_av] [facility] ([facility]) Body height 67 [in_i] 67 [in_i] [facility]) 5'7" Diastolic blood pressure 76 mm[Hg] 76 mm[Hg] [facility] ([facility]) Systolic blood pressure 148 mm[Hg] 148 mm[Hg] M [facility] ([facility]) Body weight 76.205 kg 76.205 kg [facility] ([facility]) Body mass index (BMI) [Ratio] 26.3 kg/m2 26.3 k g/m2 [facility] ([facility]) Body weight 168.00 [lb_av] 168.00 [facility]_av[facility] Body height 67 [in_i] 67 [in_i] [facility]) 5'7" Diastolic blood pressure 82 mm[Hg] 82 mm[Hg] [facility] ([facility]) Systolic blood pressure 130 mm[Hg] 130 mm[Hg] [facility] Diastolic blood pressure 70 mm[Hg] 70 mm[Hg] eCW1 ([facility]) Systolic blood pressure 112 mm[Hg] 112 mm[Hg] e CW1 ([facility]) Body temperature 97.1 [degF] 97.1 [degF] eCW1 ( [facility]) Respiratory rate 18 /min 18 /min eCW1 ([facility]) Heart rate 105 /min 105 /min eCW1 ([facility]) Body mass index (BMI) [Ratio] 26.40 kg/m2 26.40 kg/m2 W1 ([facility]) Body height 67 [in_i] 67 [in_i] eCW1 ([facility]) Body weight 168.6 [lb_av] 168.6 [lb_av] eCW1 ([facility]) Diastolic blood pressure 86 mm[Hg] 86 mm[Hg] eCW1 ([facility]) Systolic blood pressure 132 mm[Hg] 132 mm[Hg] e CW1 ([facility]) Body temperature 97.3 [degF] 97.3 [degF] eCW1 ( [facility]) Respiratory rate 18 /min 18 /min eCW1 ([facility]) Heart rate 94 /min 94 /min eCW1 ([facility]) Body mass index (BMI) [Ratio] 26.22 kg/m2 26.22 kg/m2 eCW1 ([facility]) Body height 67 [in_i] 67 [in_i] eCW1 ([facility]) Body weight 167.4 [lb_av] 167.4 [lb_av] eCW1 ([facility]) Diastolic blood pressure 56 mm[Hg] 56 mm[Hg] eCW1 ([facility]) Systolic blood pressure 122 mm[Hg] 122 mm[Hg] e CW1 ([facility]) Body temperature 98.0 [degF] 98.0 [degF] eCW1 ( [facility]) Respiratory rate 18 /min 18 /min eCW1 ([facility]) Heart rate 88 /min 88 /min eCW1 ([facility]) Body mass index (BMI) [Ratio] 24.81 kg/m2 24.81 kg/m2 eCW1 ([facility]) Body height 67 [in_i] 67 [in_i] eCW1 ([facility] Body weight 158.4 [lb_av] 158.4 [lb_av] eCW1 ([facility]) Diastolic blood pressure 60 mm[Hg] 60 mm[Hg] eCW1 ([facility]) Systolic blood pressure 138 mm[Hg] 138 mm[Hg] e CW1 ([facility]) Body temperature 97.3 [degF] 97.3 [degF] eCW1 ( [facility]) Respiratory rate 18 /min 18 /min eCW1 ([facility]) Heart rate 98 /min 98 /min eCW1 ([facility]) Body mass index (BMI) [Ratio] 24.77 kg/m2 24.77 kg/m2 eCW1 ([facility]) Body height 67 [in_i] 67 [in_i] eCW1 ([facility]) Body weight 158.2 [lb_av] 158.2 [lb_av] eCW1 ([facility]) Diastolic blood pressure 60 mm[Hg] 60 mm[Hg] eCW1 ([facility]) Systolic blood pressure 108 mm[Hg] 108 mm[Hg] e CW1 ([facility]) Body temperature 97.1 [degF] 97.1 [degF] eCW1 ( [facility]) Respiratory rate 18 /min 18 /min eCW1 ([facility]) Heart rate 82 /min 82 /min eCW1 ([facility]) Body mass index (BMI) [Ratio] 24.27 kg/m2 24.27 kg/m2 eCW1 ([facility]) Body height 67 [in_i] 67 [in_i] eCW1 ([facility]) Body weight 155 [lb_av] 155 [lb_av] eCW1 ([facility]) Diastolic blood pressure 80 mm[Hg] 80 mm[Hg] eCW1 ([facility]) Systolic blood pressure 126 mm[Hg] 126 mm[Hg] e CW1 ([facility]) Body temperature 98.9 [degF] 98.9 [degF] eCW1 ( [facility]) Respiratory rate 20 /min 20 /min eCW1 ([facility]) Heart rate 110 /min 110 /min eCW1 ([facility]) Body mass index (BMI) [Ratio] 23.74 kg/m2 23.74 kg/m2 eCW1 ([facility]) Body height 67 [in_i] 67 [in_i] eCW1 ([facility]) Body weight 151.6 [lb_av] 151.6 [lb_av] eCW1 ([facility]) Diastolic blood pressure 72 mm[Hg] 72 mm[Hg] eCW1 ([facility]) Systolic blood pressure 128 mm[Hg] 128 mm[Hg] e CW1 ([facility]) Body temperature 97.8 [degF] 97.8 [degF] eCW1 ( [facility]) Respiratory rate 18 /min 18 /min eCW1 ([facility]) Heart rate 89 /min 89 /min eCW1 ([facility]) Body mass index (BMI) [Ratio] 22.96 kg/m2 22.96 kg/m2 eCW1 ([facility]) Body height 67 [in_i] 67 [in_i] eCW1 ([facility]) Body weight 146.6 [lb_av] 146.6 [lb_av] eCW1 ([facility]) Diastolic blood pressure 60 mm[Hg] 60 mm[Hg] eCW1 ([facility]) Systolic blood pressure 112 mm[Hg] 112 mm[Hg] e CW1 ([facility]) Body temperature 98.1 [degF] 98.1 [degF] eCW1 ( [facility]) Respiratory rate 18 /min 18 /min eCW1 ([facility]) Heart rate 87 /min 87 /min eCW1 ([facility]) Body mass index (BMI) [Ratio] 24.02 kg/m2 24.02 kg/m2 eCW1 ([facility]) Body height 67 [in_i] 67 [in_i] eCW1 ([facility]) Body weight 153.4 [lb_av] 153.4 [lb_av] eCW1 ([facility]) Diastolic blood pressure 60 mm[Hg] 60 mm[Hg] eCW1 ([facility]) Systolic blood pressure 108 mm[Hg] 108 mm[Hg] e CW1 ([facility]) Body temperature 96.7 [degF] 96.7 [degF] eCW1 ( [facility]) Respiratory rate 18 /min 18 /min eCW1 ([facility]) Heart rate 87 /min 87 /min eCW1 ([facility]) Body mass index (BMI) [Ratio] 23.77 kg/m2 23.77 kg/m2 eCW1 ([facility]) Body height 67 [in_us] 67 [in_us] eCW1 ([facility]) Body weight Measured 151.8 [lb_av] 151.8 [lb_av ] eCW1 ([facility]) Diastolic blood pressure 58 mm[Hg] 58 mm[Hg] eCW1 ([facility]) Systolic blood pressure 112 mm[Hg] 112 mm[Hg] e CW1 ([facility]) Body temperature 97.4 [degF] 97.4 [degF] eCW1 ( [facility]) Respiratory rate 18 /min 18 /min eCW1 ([facility]) Heart rate 92 /min 92 /min eCW1 ([facility]) Body mass index (BMI) [Ratio] 23.71 kg/m2 23.71 kg/m2 eCW1 ([facility]) Body height 67 [in_us] 67 [in_us] eCW1 ([facility]) Body weight Measured 151.4 [lb_av] 151.4 [lb_av ] eCW1 ([facility]) Diastolic blood pressure 53 mm[Hg] 53 mm[Hg] eCW1 ([facility]) Systolic blood pressure 92 mm[Hg] 92 mm[Hg] e CW1 ([facility]) Body temperature 98.2 [degF] 98.2 [degF] eCW1 ( [facility]) Respiratory rate 16 /min 16 /min eCW1 ([facility]) Heart rate 80 /min 80 /min eCW1 ([facility]) Body mass index (BMI) [Ratio] 24.74 kg/m2 24.74 kg/m2 W1 ([facility]) Body height 67 [in_us] 67 [in_us] [facility] Body weight Measured 158.0 [lb_av] 158.0 [lb_av ] eCW1 ([facility]) Diastolic blood pressure 58 mm[Hg] 58 mm[Hg] eCW1 ([facility]) Systolic blood pressure 108 mm[Hg] 108 mm[Hg] e CW1 ([facility]) Body temperature 97.5 [degF] 97.5 [degF] eCW1 ( [facility]) Respiratory rate 18 /min 18 /min eCW1 ([facility]) Heart rate 86 /min 86 /min eCW1 ([facility]) Body mass index (BMI) [Ratio] 24.34 kg/m2 24.34 kg/m2 eCW1 ([facility]) Body height 67 [in_i] 67 [in_i] eCW1 ([facility]) Body weight 155.4 [lb_av] 155.4 [lb_av] eCW1 ([facility]) Body mass index (BMI) [Ratio] 21.1 kg/m2 21.1 k g/m2 MEDENT ([facility] Heart rate 74 /min 74 /min MEDENT ([facility] Diastolic blood pressure 70 mm[Hg] 70 mm[Hg] MEDENT ([facility] Systolic blood pressure 124 mm[Hg] 124 mm[Hg] M EDENT ([facility] Body weight 135.00 [lb_av] 135.00 [lb_av] MEDEN T ([facility] Body height 67 [in_i] 67 [in_i] MEDENT ([facility] 5'7" Patient Treatment Plan of Care Planned Activity Planned Date Details Description Data Source (s) Mupirocin 20 MG/ML Topical Cream 05/12/2020 12:00:00 AM EST eCW1 ([facility]) Mometasone Furoate 50 MCG/ACT 04/12/2020 12:00:00 AM EST eCW1 ([facility]) Doxycycline Monohydrate 100 MG Oral Capsule 04/12/2020 12:00:00 AM EST eCW1 ([facility]) mesalamine 1000 MG Rectal Suppository 04/12/2020 12:00:00 AM EST eCW1 ([facility]) Mometasone Furoate 50 MCG/ACT 04/12/2020 12:00:00 AM EST eCW1 ([facility]) Doxycycline Monohydrate 100 MG Oral Capsule 04/12/2020 12:00:00 AM EST eCW1 ([facility]) mesalamine 1000 MG Rectal Suppository 04/12/2020 12:00:00 AM EST eCW1 ([facility]) Mometasone Furoate 50 MCG/ACT 04/12/2020 12:00:00 AM EST eCW1 ([facility]) mesalamine 1000 MG Rectal Suppository 04/12/2020 12:00:00 AM EST eCW1 ([facility]) Mometasone Furoate 50 MCG/ACT 04/12/2020 12:00:00 AM EST eCW1 ([facility]) Doxycycline Monohydrate 100 MG Oral Capsule 04/12/2020 12:00:00 AM EST eCW1 ([facility]) mesalamine 1000 MG Rectal Suppository 04/12/2020 12:00:00 AM EST eCW1 ([facility]) Mometasone Furoate 50 MCG/ACT 04/12/2020 12:00:00 AM EST eCW1 ([facility]) Doxycycline Monohydrate 100 MG Oral Capsule 04/12/2020 12:00:00 AM EST eCW1 ([facility]) mesalamine 1000 MG Rectal Suppository 04/12/2020 12:00:00 AM EST eCW1 ([facility]) Mometasone Furoate 50 MCG/ACT 04/12/2020 12:00:00 AM EST eCW1 ([facility]) Doxycycline Monohydrate 100 MG Oral Capsule 04/12/2020 12:00:00 AM EST eCW1 ([facility]) mesalamine 1000 MG Rectal Suppository 04/12/2020 12:00:00 AM EST eCW1 ([facility]) Mometasone Furoate 50 MCG/ACT 04/12/2020 12:00:00 AM EST eCW1 ([facility]) Doxycycline Monohydrate 100 MG Oral Capsule 04/12/2020 12:00:00 AM EST eCW1 ([facility]) mesalamine 1000 MG Rectal Suppository 04/12/2020 12:00:00 AM EST eCW1 ([facility]) Mometasone Furoate 50 MCG/ACT 04/12/2020 12:00:00 AM EST eCW1 ([facility]) Doxycycline Monohydrate 100 MG Oral Capsule 04/12/2020 12:00:00 AM EST eCW1 ([facility]) mesalamine 1000 MG Rectal Suppository 04/12/2020 12:00:00 AM EST eCW1 ([facility]) Mometasone Furoate 50 MCG/ACT 04/12/2020 12:00:00 AM EST eCW1 ([facility]) Doxycycline Monohydrate 100 MG Oral Capsule 04/12/2020 12:00:00 AM EST eCW1 ([facility]) mesalamine 1000 MG Rectal Suppository 04/12/2020 12:00:00 AM EST eCW1 ([facility]) Mometasone Furoate 50 MCG/ACT 04/12/2020 12:00:00 AM EST eCW1 ([facility]) Doxycycline Monohydrate 100 MG Oral Capsule 04/12/2020 12:00:00 AM EST eCW1 ([facility]) Doxycycline Monohydrate 100 MG Oral Capsule 04/12/2020 12:00:00 AM EST eCW1 ([facility]) mesalamine 1000 MG Rectal Suppository 04/12/2020 12:00:00 AM EST eCW1 ([facility]) mesalamine 1000 MG Rectal Suppository 04/12/2020 12:00:00 AM EST eCW1 ([facility]) Mometasone Furoate 50 MCG/ACT 04/12/2020 12:00:00 AM EST eCW1 ([facility]) Doxycycline Monohydrate 100 MG Oral Capsule 04/12/2020 12:00:00 AM EST eCW1 ([facility]) Mometasone Furoate 50 MCG/ACT 04/12/2020 12:00:00 AM EST eCW1 ([facility]) mesalamine 1000 MG Rectal Suppository 04/12/2020 12:00:00 AM EST eCW1 ([facility]) Doxycycline Monohydrate 100 MG Oral Capsule 04/12/2020 12:00:00 AM EST eCW1 ([facility]) Doxycycline Monohydrate 100 MG Oral Capsule 04/12/2020 12:00:00 AM EST eCW1 ([facility]) Mometasone Furoate 50 MCG/ACT 04/12/2020 12:00:00 AM EST eCW1 ([facility]) mesalamine 1000 MG Rectal Suppository 04/12/2020 12:00:00 AM EST eCW1 ([facility]) Doxycycline Monohydrate 100 MG Oral Capsule 04/12/2020 12:00:00 AM EST eCW1 ([facility]) Mometasone Furoate 50 MCG/ACT 04/12/2020 12:00:00 AM EST eCW1 ([facility]) mesalamine 1000 MG Rectal Suppository 04/12/2020 12:00:00 AM EST eCW1 ([facility]) Doxycycline Monohydrate 100 MG Oral Capsule 04/12/2020 12:00:00 AM EST eCW1 ([facility]) Mometasone Furoate 50 MCG/ACT 04/12/2020 12:00:00 AM EST eCW1 ([facility]) mesalamine 1000 MG Rectal Suppository 04/12/2020 12:00:00 AM EST eCW1 ([facility]) doxycycline hyclate 100 MG Oral Tablet 03/20/2020 12:00:00 AM EST eCW1 ([facility]) doxycycline hyclate 100 MG Oral Tablet 03/20/2020 12:00:00 AM EST eCW1 ([facility]) doxycycline hyclate 100 MG Oral Tablet 03/20/2020 12:00:00 AM EST eCW1 ([facility]) doxycycline hyclate 100 MG Oral Tablet 03/20/2020 12:00:00 AM EST eCW1 ([facility]) doxycycline hyclate 100 MG Oral Tablet 03/20/2020 12:00:00 AM EST eCW1 ([facility]) 3 ML liraglutide 6 MG/ML Pen Injector [Victoza] 03/17/2020 12:00:00 AM EST eCW1 ([facility]) 3 ML liraglutide 6 MG/ML Pen Injector [Victoza] 03/17/2020 12:00:00 AM EST eCW1 ([facility]) 3 ML liraglutide 6 MG/ML Pen Injector [Victoza] 03/17/2020 12:00:00 AM EST eCW1 ([facility]) 3 ML liraglutide 6 MG/ML Pen Injector [Victoza] 03/17/2020 12:00:00 AM EST eCW1 ([facility]) 3 ML liraglutide 6 MG/ML Pen Injector [Victoza] 03/17/2020 12:00:00 AM EST eCW1 ([facility]) 3 ML liraglutide 6 MG/ML Pen Injector [Victoza] 03/17/2020 12:00:00 AM EST eCW1 ([facility]) 3 ML liraglutide 6 MG/ML Pen Injector [Victoza] 03/17/2020 12:00:00 AM EST eCW1 ([facility]) 3 ML liraglutide 6 MG/ML Pen Injector [Victoza] 03/17/2020 12:00:00 AM EST eCW1 ([facility]) 3 ML liraglutide 6 MG/ML Pen Injector [Victoza] 03/17/2020 12:00:00 AM EST eCW1 ([facility]) 3 ML liraglutide 6 MG/ML Pen Injector [Victoza] 03/17/2020 12:00:00 AM EST eCW1 ([facility]) 3 ML liraglutide 6 MG/ML Pen Injector [Victoza] 03/17/2020 12:00:00 AM EST eCW1 ([facility]) 3 ML liraglutide 6 MG/ML Pen Injector [Victoza] 03/17/2020 12:00:00 AM EST eCW1 ([facility]) 3 ML liraglutide 6 MG/ML Pen Injector [Victoza] 03/17/2020 12:00:00 AM EST eCW1 ([facility]) 3 ML liraglutide 6 MG/ML Pen Injector [Victoza] 03/17/2020 12:00:00 AM EST eCW1 ([facility]) 3 ML liraglutide 6 MG/ML Pen Injector [Victoza] 03/17/2020 12:00:00 AM EST eCW1 ([facility]) 3 ML liraglutide 6 MG/ML Pen Injector [Victoza] 03/17/2020 12:00:00 AM EST eCW1 ([facility]) Sodium Chloride 0.9 % 03/17/2020 12:00:00 AM EST eCW1 ([facility]) 3 ML liraglutide 6 MG/ML Pen Injector [Victoza] 03/17/2020 12:00:00 AM EST eCW1 ([facility]) ciclopirox 80 MG/ML Topical Solution 03/17/2020 12:00:00 AM EST eCW1 ([facility]) Doxycycline Monohydrate 100 MG Oral Tablet 01/24/2020 12:00:00 AM E DT eCW1 ([facility]) Doxycycline Monohydrate 100 MG Oral Tablet 01/24/2020 12:00:00 AM E DT eCW1 ([facility]) Estradiol 0.1 MG/ML Vaginal Cream 10/15/2019 12:00:00 AM EDT eCW1 ([facility]) Estradiol 0.1 MG/ML Vaginal Cream 10/15/2019 12:00:00 AM EDT eCW1 ([facility]) Estradiol 0.1 MG/ML Vaginal Cream 10/15/2019 12:00:00 AM EDT eCW1 ([facility]) Estradiol 0.1 MG/ML Vaginal Cream 10/15/2019 12:00:00 AM EDT eCW1 ([facility]) Estradiol 0.1 MG/ML Vaginal Cream 10/15/2019 12:00:00 AM EDT eCW1 ([facility]) Estradiol 0.1 MG/ML Vaginal Cream 10/15/2019 12:00:00 AM EDT eCW1 ([facility]) Estradiol 0.1 MG/ML Vaginal Cream 10/15/2019 12:00:00 AM EDT eCW1 ([facility]) Estrogens, Conjugated (HALFWAY) 0.625 MG/ML Vaginal Cream [Premarin] 10/01/2019 12:00:00 AM EDT eCW1 ([facility]) Estrogens, Conjugated (HALFWAY) 0.625 MG/ML Vaginal Cream [Premarin] 10/01/2019 12:00:00 AM EDT eCW1 ([facility]) Estrogens, Conjugated (HALFWAY) 0.625 MG/ML Vaginal Cream [Premarin] 10/01/2019 12:00:00 AM EDT eCW1 ([facility]) Estrogens, Conjugated (HALFWAY) 0.625 MG/ML Vaginal Cream [Premarin] 10/01/2019 12:00:00 AM EDT eCW1 ([facility]) Hydromorphone Hydrochloride 4 MG Oral Tablet 09/17/2019 12:00:00 AM EDT eCW1 ([facility]) Hydromorphone Hydrochloride 4 MG Oral Tablet 09/17/2019 12:00:00 AM EDT eCW1 ([facility]) Hydromorphone Hydrochloride 4 MG Oral Tablet 09/17/2019 12:00:00 AM EDT eCW1 ([facility]) Hydromorphone Hydrochloride 4 MG Oral Tablet 09/17/2019 12:00:00 AM EDT eCW1 ([facility]) Hydromorphone Hydrochloride 4 MG Oral Tablet 09/17/2019 12:00:00 AM EDT eCW1 ([facility]) Hydromorphone Hydrochloride 4 MG Oral Tablet 09/17/2019 12:00:00 AM EDT eCW1 ([facility]) Hydromorphone Hydrochloride 4 MG Oral Tablet 09/17/2019 12:00:00 AM EDT eCW1 ([facility]) Hydromorphone Hydrochloride 4 MG Oral Tablet 09/17/2019 12:00:00 AM EDT eCW1 ([facility]) Hydromorphone Hydrochloride 4 MG Oral Tablet 09/17/2019 12:00:00 AM EDT eCW1 ([facility]) Metronidazole 500 MG Oral Tablet 09/10/2019 12:00:00 AM EDT eCW1 ([facility]) Hydromorphone Hydrochloride 4 MG Oral Tablet 09/09/2019 12:00:00 AM EDT eCW1 ([facility]) Hydromorphone Hydrochloride 4 MG Oral Tablet 09/01/2019 12:00:00 AM EDT eCW1 ([facility]) Hydromorphone Hydrochloride 4 MG Oral Tablet 08/28/2019 12:00:00 AM EDT eCW1 ([facility]) Hydromorphone Hydrochloride 4 MG Oral Tablet 08/20/2019 12:00:00 AM EDT eCW1 ([facility]) Hydromorphone Hydrochloride 4 MG Oral Tablet 08/11/2019 12:00:00 AM EDT eCW1 ([facility]) tizanidine 2 MG Oral Tablet 07/28/2019 12:00:00 AM EDT eCW1 ([facility]) Hydromorphone Hydrochloride 4 MG Oral Tablet 07/28/2019 12:00:00 AM EDT eCW1 ([facility]) Doxycycline Monohydrate 100 MG Oral Capsule 07/26/2019 12:00:00 AM EDT eCW1 ([facility]) Pen Reynolds 16" 07/22/2019 12:00:00 AM EDT eCW1 ([facility]) Pen Reynolds 16" 07/22/2019 12:00:00 AM EDT eCW1 ([facility]) Pen Reynolds 16" 07/22/2019 12:00:00 AM EDT eCW1 ([facility]) Pen Reynolds 16" 07/22/2019 12:00:00 AM EDT eCW1 ([facility]) Pen Reynolds 5/16" 07/22/2019 12:00:00 AM EDT eCW1 ([facility]) Pen Reynolds 516" 07/22/2019 12:00:00 AM EDT eCW1 ([facility]) Pen Reynolds 516" 07/22/2019 12:00:00 AM EDT eCW1 ([facility]) Pen Reynolds 16" 07/22/2019 12:00:00 AM EDT eCW1 ([facility]) Levemir Flex Touch 100 UNIT/ML 07/16/2019 12:00:00 AM EDT eCW1 ([facility]) Levemir Flex Touch 100 UNIT/ML 07/16/2019 12:00:00 AM EDT eCW1 ([facility]) Levemir Flex Touch 100 UNIT/ML 07/16/2019 12:00:00 AM EDT eCW1 ([facility]) Levemir Flex Touch 100 UNIT/ML 07/16/2019 12:00:00 AM EDT eCW1 ([facility]) Levemir Flex Touch 100 UNIT/ML 07/16/2019 12:00:00 AM EDT eCW1 ([facility]) Levemir Flex Touch 100 UNIT/ML 07/16/2019 12:00:00 AM EDT eCW1 ([facility]) Levemir Flex Touch 100 UNIT/ML 07/16/2019 12:00:00 AM EDT eCW1 ([facility]) Levemir Flex Touch 100 UNIT/ML 07/16/2019 12:00:00 AM EDT eCW1 ([facility]) Levemir Flex Touch 100 UNIT/ML 07/16/2019 12:00:00 AM EDT eCW1 ([facility]) Levemir Flex Touch 100 UNIT/ML 07/16/2019 12:00:00 AM EDT eCW1 ([facility]) Levemir Flex Touch 100 UNIT/ML 07/16/2019 12:00:00 AM EDT eCW1 ([facility]) Levemir Flex Touch 100 UNIT/ML 07/16/2019 12:00:00 AM EDT eCW1 ([facility]) Levemir Flex Touch 100 UNIT/ML 07/16/2019 12:00:00 AM EDT eCW1 ([facility]) Levemir Flex Touch 100 UNIT/ML 07/16/2019 12:00:00 AM EDT eCW1 ([facility]) Levemir Flex Touch 100 UNIT/ML 07/16/2019 12:00:00 AM EDT eCW1 ([facility]) Levemir Flex Touch 100 UNIT/ML 07/16/2019 12:00:00 AM EDT eCW1 ([facility]) Levemir Flex Touch 100 UNIT/ML 07/16/2019 12:00:00 AM EDT eCW1 ([facility]) Levemir Flex Touch 100 UNIT/ML 07/16/2019 12:00:00 AM EDT eCW1 ([facility]) Levemir Flex Touch 100 UNIT/ML 07/16/2019 12:00:00 AM EDT eCW1 ([facility]) Levemir Flex Touch 100 UNIT/ML 07/16/2019 12:00:00 AM EDT eCW1 ([facility]) Hydromorphone Hydrochloride 4 MG Oral Tablet 07/16/2019 12:00:00 AM EDT eCW1 ([facility]) Nystatin 100 UNT/MG Topical Powder 07/16/2019 12:00:00 AM EDT eCW1 ([facility]) Levemir Flex Touch 100 UNIT/ML 07/16/2019 12:00:00 AM EDT eCW1 ([facility]) Hydromorphone Hydrochloride 4 MG Oral Tablet 07/09/2019 12:00:00 AM EDT eCW1 ([facility]) Alcohol Prep Pad 70 % 07/05/2019 12:00:00 AM EDT eCW1 ([facility]) Alcohol Prep Pad 70 % 07/05/2019 12:00:00 AM EDT eCW1 ([facility]) Alcohol Prep Pad 70 % 07/05/2019 12:00:00 AM EDT eCW1 ([facility]) Alcohol Prep Pad 70 % 07/05/2019 12:00:00 AM EDT eCW1 ([facility]) Alcohol Prep Pad 70 % 07/05/2019 12:00:00 AM EDT eCW1 ([facility]) Alcohol Prep Pad 70 % 07/05/2019 12:00:00 AM EDT eCW1 ([facility]) Alcohol Prep Pad 70 % 07/05/2019 12:00:00 AM EDT eCW1 ([facility]) Alcohol Prep Pad 70 % 07/05/2019 12:00:00 AM EDT eCW1 ([facility]) Alcohol Prep Pad 70 % 07/05/2019 12:00:00 AM EDT eCW1 ([facility]) Alcohol Prep Pad 70 % 07/05/2019 12:00:00 AM EDT eCW1 ([facility]) Metoclopramide 10 MG Oral Tablet 07/03/2019 12:00:00 AM EDT eCW1 ([facility]) ammonium lactate 120 MG/ML Topical Cream 07/03/2019 12:00:00 AM EDT eCW1 ([facility]) Metoclopramide 10 MG Oral Tablet 07/03/2019 12:00:00 AM EDT eCW1 ([facility]) ammonium lactate 120 MG/ML Topical Cream 07/03/2019 12:00:00 AM EDT eCW1 ([facility]) Metoclopramide 10 MG Oral Tablet 07/03/2019 12:00:00 AM EDT eCW1 ([facility]) ammonium lactate 120 MG/ML Topical Cream 07/03/2019 12:00:00 AM EDT eCW1 ([facility]) Metoclopramide 10 MG Oral Tablet 07/03/2019 12:00:00 AM EDT eCW1 ([facility]) ammonium lactate 120 MG/ML Topical Cream 07/03/2019 12:00:00 AM EDT eCW1 ([facility]) Metoclopramide 10 MG Oral Tablet 07/03/2019 12:00:00 AM EDT eCW1 ([facility]) ammonium lactate 120 MG/ML Topical Cream 07/03/2019 12:00:00 AM EDT eCW1 ([facility]) Metoclopramide 10 MG Oral Tablet 07/03/2019 12:00:00 AM EDT eCW1 ([facility]) ammonium lactate 120 MG/ML Topical Cream 07/03/2019 12:00:00 AM EDT eCW1 ([facility]) Metoclopramide 10 MG Oral Tablet 07/03/2019 12:00:00 AM EDT eCW1 ([facility]) ammonium lactate 120 MG/ML Topical Cream 07/03/2019 12:00:00 AM EDT eCW1 ([facility]) Metoclopramide 10 MG Oral Tablet 07/03/2019 12:00:00 AM EDT eCW1 ([facility]) ammonium lactate 120 MG/ML Topical Cream 07/03/2019 12:00:00 AM EDT eCW1 ([facility]) Metoclopramide 10 MG Oral Tablet 07/03/2019 12:00:00 AM EDT eCW1 ([facility]) ammonium lactate 120 MG/ML Topical Cream 07/03/2019 12:00:00 AM EDT eCW1 ([facility]) Metoclopramide 10 MG Oral Tablet 07/03/2019 12:00:00 AM EDT eCW1 ([facility]) Metoclopramide 10 MG Oral Tablet 07/03/2019 12:00:00 AM EDT eCW1 ([facility]) ammonium lactate 120 MG/ML Topical Cream 07/03/2019 12:00:00 AM EDT eCW1 ([facility]) Metoclopramide 10 MG Oral Tablet 07/03/2019 12:00:00 AM EDT eCW1 ([facility]) ammonium lactate 120 MG/ML Topical Cream 07/03/2019 12:00:00 AM EDT eCW1 ([facility]) ammonium lactate 120 MG/ML Topical Cream 07/03/2019 12:00:00 AM EDT eCW1 ([facility]) Metoclopramide 10 MG Oral Tablet 07/03/2019 12:00:00 AM EDT eCW1 ([facility]) ammonium lactate 120 MG/ML Topical Cream 07/03/2019 12:00:00 AM EDT eCW1 ([facility]) Metoclopramide 10 MG Oral Tablet 07/03/2019 12:00:00 AM EDT eCW1 ([facility]) ammonium lactate 120 MG/ML Topical Cream 07/03/2019 12:00:00 AM EDT eCW1 ([facility]) Metoclopramide 10 MG Oral Tablet 07/03/2019 12:00:00 AM EDT eCW1 ([facility]) ammonium lactate 120 MG/ML Topical Cream 07/03/2019 12:00:00 AM EDT eCW1 ([facility]) Metoclopramide 10 MG Oral Tablet 07/03/2019 12:00:00 AM EDT eCW1 ([facility]) Hydromorphone Hydrochloride 4 MG Oral Tablet 07/03/2019 12:00:00 AM EDT eCW1 ([facility]) Glucometer 06/24/2019 12:00:00 AM EDT e CW1 ([facility]) Lancets Misc. - 06/24/2019 12:00:00 AM EDT eCW1 ([facility]) Test Strips - 06/24/2019 12:00:00 AM EDT eCW1 ([facility]) Hydromorphone Hydrochloride 4 MG Oral Tablet 06/24/2019 12:00:00 AM EDT eCW1 ([facility]) Hydromorphone Hydrochloride 4 MG Oral Tablet 06/17/2019 12:00:00 AM EST eCW1 ([facility]) Hydromorphone Hydrochloride 4 MG Oral Tablet 06/11/2019 12:00:00 AM EST eCW1 ([facility]) Hospital bed 06/02/2019 12:00:00 AM EST e CW1 ([facility]) Hydromorphone Hydrochloride 4 MG Oral Tablet 05/26/2019 12:00:00 AM EST eCW1 ([facility]) Hydromorphone Hydrochloride 4 MG Oral Tablet 05/13/2019 12:00:00 AM EST eCW1 ([facility]) Hydromorphone HCl 4 MG 05/05/2019 12:00:00 AM EST eCW1 ([facility]) Hydromorphone Hydrochloride 4 MG Oral Tablet 05/01/2019 12:00:00 AM EST eCW1 ([facility]) Hydromorphone Hydrochloride 4 MG Oral Tablet 04/22/2019 12:00:00 AM EST eCW1 ([facility]) Doxycycline Monohydrate 100 MG Oral Tablet 04/20/2019 12:00:[address] eCW1 ([facility]) Hydromorphone Hydrochloride 4 MG Oral Tablet 04/13/2019 12:00:00 AM EST eCW1 ([facility]) Hydromorphone Hydrochloride 4 MG Oral Tablet 04/02/2019 12:00:00 AM EST eCW1 ([facility]) Spiriva Respimat 1.25 mcg/actuation inhalation mist 11/12/19 19 08:21:22 AM HENRI FRANCES ([facility])
[2020-05-27 09:43] VITALS: BP 120/72
== END 2020-05-27 09:43 | disposition home or self-care (01) ==
LOC: M ED 08:44
DX: Z79.2 Long term (current) use of antibiotics (principal); N39.0 Urinary tract infection, site not specified; E11.9 Type 2 diabetes mellitus without complications; G89.4 Chronic pain syndrome
CPT/HCPCS: 96372; 99283; J0696

== ENCOUNTER 2020-05-28 09:06 | Emergency (ER) | payer OTHER ==
[~2020-05-28] VITALS: Ht 170.2 cm; Wt 84.7 kg
--- OUTSIDE RECORDS SUMMARY | 2020-05-28 09:21 | CCD ---
Author Author [facility] Organization [facility] Address Unknown Phone Unavailable Care Team Providers Care Communications Representative Name Role Phone Komal Campuzano JR, MD [...] Unavailable Unavailable Shabnam, Tawnya Toribio Unavailable Unavailable York, Tawnya Toribio Unavailable Unavailable Shabnam, Tawnya Toribio Unavailable Unavailable York, Tawnya Toribio Unavailable Unavailable York, Tawnya Toribio Unavailable Unavailable MOFFA, VICKI HURD [...] MD Unavailable Unavailable Agustín SARAH DO Unavailable [phone] Agustín SARAH DO Unavailable [phone] Agustín SARAH DO Unavailable [phone] GLORIA, A. MAR DO Unavailable [phone] is protected by Article 27-F of the [facility] Public Health law. If you continue you may have access to information: Regarding HIV / AIDS; Provided by facilities licensed or operated by the [facility] Office of Mental Health; or Provided by the [facility] Office for People With Developmental Disabilities. If such information is present, then the following [facility] mandated warning applies: This information has been [...] law may result in a fine or senior living sentence or both. A general authorization for the release of medical or other information is NOT sufficient authorization for further disc losure. Allergies and Adverse Reactions Type Description Substance Reaction Status Data Source(s ) Drug intolerance Lyrica Pregabalin Active JUAN DANIEL (Jhony Lowery MD [employer] [facility]) Allergy to substance Active Red Dye Active GREE NWAY (Jhony Lowery MD [employer]) Drug allergy Meperidine and Related Meperidine and Related Active JUAN DANIEL (Jhony Lowery MD [employer] [facility]) Drug intolerance Gabitril tiaGABine HCl Active GREEN WAY (Jhony Lowery MD [employer] [facility]) Drug intolerance Albuterol Inhalation Inhaler Albuterol A ctive JUAN DANIEL (Jhony Lowery MD [employer] [facility]) Drug allergy Duragesic fentaNYL Active JUAN DANIEL (Champ Lowery MD [employer] [facility]) Drug intolerance midazolam hydrochloride Midazolam HCl Act nba JUAN DANIEL (Jhony Lowery MD [employer]) Drug intolerance promethazine hydrochloride Promethazine HCl Active JUAN DANIEL (Jhony Lowery MD [employer]) Drug intolerance aspirin Aspirin Active JUAN DANIEL (Jhony Lowery MD [employer] [facility]) Drug allergy baclofen Baclofen Active JUAN DANIEL (Champ Lowery MD [employer]) Drug allergy Codeine Oral Capsule Codeine Active GR EENWAY (Jhony Lowery MD [employer] [facility]) Drug allergy Hydrocodone Oral Capsule Hydrocodone Active JUAN DANIEL (Jhony Lowery MD [employer] [facility]) Drug allergy Duramorph Morphine Sulfate Active GREENW AY (Jhony Lowery MD [employer] [facility]) Drug allergy Propoxyphene Propoxyphene Active JUAN DANIEL (Jhony Lowery MD [employer] [facility]) Drug intolerance droperidol Droperidol Active JUAN DANIEL (Jhony Lowery MD [employer]) Drug intolerance Lorazepam 0.25 MG Oral Tablet Lorazepam Active JUAN DANIEL (Jhony Lowery MD [employer]) Drug intolerance Iodine Tincture External Iodine Tincture Active JUAN DANIEL (Jhony Lowery MD [employer] [facility]) Drug intolerance Lidoderm Lidocaine Active JUAN DANIEL (Jhony Lowery MD [employer] [facility]) Drug intolerance Endy-24 Theophylline ER Active GRE ENWAY (Jhony Lowery MD [employer] [facility]) Allergy to substance Active Grape Active GREE NWAY (Jhony Lowery MD [employer] [facility]) Allergy to substance Active Latex Active GREE NWAY (Jhony Lowery MD [employer] [facility]) Allergy to substance Active Strawberries Active GR EENWAY (Jhony Lowery MD [employer]) Allergy to substance Active Tomatoes Active GREE NWAY (Jhony Lowery MD [employer] [facility]) Drug allergy Tequin Ophthalmic Solution Tequin Active JUAN DANIEL (Jhony Lowery MD [employer]) Drug allergy Ipratropium [place] 18 MCG/ACT Inhalatio n Aerosol Solution Ipratropium [place] Active JUAN DANIEL (Jhony Lowery MD [employer]) Drug allergy Mesoridazine Oral Tablet Mesoridazine Active JUAN DANIEL (Jhony Lowery MD [employer] [facility]) Drug allergy chlorpromazine hydrochloride chlorproMAZINE HCl Active JUAN DANIEL (Jhony Lowery MD [employer]) Drug allergy trifluoperazine hydrochloride Trifluoperazine HCl Active JUAN DANIEL (Jhony Lowery MD [employer]) Drug allergy Azithromycin Powder Azithromycin Active G REENWAY (Jhony Lowery MD [employer]) Drug allergy Neurontin Gabapentin Active JUAN DANIEL (Champ Lowery MD [employer] [facility]) Drug allergy Tramadol Oral Tablet Tramadol Active GR EENWAY (Jhony Lowery MD [employer] [facility]) Allergy to substance Active Adhesive Tape Active G REENWAY (Jhony Lowery MD [employer] [facility]) Drug allergy Ciprofloxacin Oral Tablet Ciprofloxacin Activ e JUAN DANIEL (Jhony Lowery MD [employer] [facility]) Drug allergy probenecid Probenecid Active JUAN DANIEL (Champ Lowery MD [employer]) Drug allergy Endocet oxyCODONE-Acetaminophen Active JUAN DANIEL (Jhony Lowery MD [employer] [facility]) Drug allergy fluphenazine hydrochloride fluPHENAZine HCl A ctive JUAN DANIEL (Jhony Lowery MD [employer] [facility]) Drug allergy Compazine Prochlorperazine Active GREENW AY (Jhony Lowery MD [employer]) Drug allergy Penicillins Penicillins Active JUAN DANIEL ( Jhony Lowery MD [employer] [facility]) Drug allergy Sulfa Antibiotics Sulfa Antibiotics Active JUAN DANIEL (Jhony Lowery MD [employer] [facility]) Allergy to substance Active Contrast IV Dye Active JUAN DANIEL (Jhony Lowery MD [employer] [facility]) Baclofen Baclofen Baclofen 5 MG Oral Tablet affected nervous syt Active eCW1 ([facility]) red food dye red food dye red food dye rash Active eCW1 ([facility], 1928–1983) lidoderm (licocanine) lidoderm (licocanine) lidoderm (licocanine) h eart races Active eCW1 ([facility]) sulfa sulfa sulfa Hives Active eCW1 ([facility]) iodine iodine iodine nerves, tight muscles Active eC W1 ([facility]) phenothiazines phenothiazines phenothiazines nervous system Active eCW1 ([facility]) quinolones- cipro,tequin quinolones- cipro,tequin quinolones- ci pro,tequin Hives Active eCW1 ([facility]) Vicodin Vicodin Vicodin Confusion Active eCW1 ([facility]) Readi-Cat Readi-Cat Readi-Cat Hives Active eCW1 ([facility]) Drug allergy Albuterol Sulfate Albuterol cough Active eCW1 ([facility]) Drug allergy Fentanyl Fentanyl nervous Active eCW1 ([facility]) aspirin Aspirin Aspirin Hives Active eCW1 ([facility]) Drug allergy Gabapentin gabapentin nervous system,shakey Active eCW1 ([facility]) Drug allergy Tramadol Tramadol shakes Active eCW1 ([facility]) Drug allergy Oxycodone Drug allergy vomiting,hives Active eCW1 ([facility]) Drug allergy Ativan Lorazepam hallucinations Active eCW1 ([facility]) Drug allergy Promethazine HCl Promethazine out of body experience Ac tive eCW1 ([facility]) ketorolac Ketorolac Tromethamine Ketorolac vomiting Active eC W1 ([facility]) Drug allergy Gabitril tiagabine nervous Active eCW1 ([facility]) Drug allergy Gastrografin Drug allergy Only 1 bottle pe r test day (can not tolerate any more than 1 bottle) Active eCW1 ([facility]) codeine Codeine Sulfate Codeine out of body experience Active eCW1 ([facility]) Drug allergy Morphine Sulfate Morphine severe h/a with big dose Ac tive eCW1 ([facility]) Drug allergy Meperidine HCl Meperidine out of body experience Active eCW1 ([facility]) Drug allergy Azithromycin Azithromycin hives Active eCW1 ([facility], 1928–[facility]) Drug allergy Droperidol Droperidol out of body Active eCW1 ([facility]) Drug allergy Macrobid nitrofurantoin, macr ocrystals / nitrofurantoin, monohydrate Hives, blurred vision Active eCW1 ([facility]) Baclofen Baclofen Baclofen 5 MG Oral Tablet affected nervous syt Active eCW1 ([facility]) red food dye red food dye red food dye rash Active eCW1 ([facility], 1928–1983) lidoderm (licocanine) lidoderm (licocanine) lidoderm (licocanine) h eart races Active eCW1 ([facility]) sulfa sulfa sulfa Hives Active eCW1 ([facility]) iodine iodine iodine nerves, tight muscles Active eC W1 ([facility]) phenothiazines phenothiazines phenothiazines nervous system Active eCW1 ([facility]) quinolones- cipro,tequin quinolones- cipro,tequin quinolones- ci pro,tequin Hives Active eCW1 ([facility]) Vicodin Vicodin Vicodin Confusion Active eCW1 ([facility]) Readi-Cat Readi-Cat Readi-Cat Hives Active eCW1 ([facility]) Baclofen Baclofen Baclofen 5 MG Oral Tablet affected nervous syt Active eCW1 ([facility]) red food dye red food dye red food dye rash Active eCW1 ([facility], 1928–[facility]) lidoderm (licocanine) lidoderm (licocanine) lidoderm (licocanine) h eart races Active eCW1 ([facility]) sulfa sulfa sulfa Hives Active eCW1 ([facility]) iodine iodine iodine nerves, tight muscles Active eC W1 ([facility]) phenothiazines phenothiazines phenothiazines nervous system Active eCW1 ([facility]) quinolones- cipro,tequin quinolones- cipro,tequin quinolones- ci pro,tequin Hives Active eCW1 ([facility]) Vicodin Vicodin Vicodin Confusion Active eCW1 ([facility]) Readi-Cat Readi-Cat Readi-Cat Hives Active eCW1 ([facility]) Baclofen Baclofen Baclofen 5 MG Oral Tablet affected nervous syt Active eCW1 ([facility]) lidoderm (licocanine) lidoderm (licocanine) lidoderm (licocanine) h eart races Active eCW1 ([facility]) sulfa sulfa sulfa Hives Active eCW1 ([facility]) iodine iodine iodine nerves, tight muscles Active eC W1 ([facility]) phenothiazines phenothiazines phenothiazines nervous system Active eCW1 ([facility]) quinolones- cipro,tequin quinolones- cipro,tequin quinolones- ci pro,tequin Hives Active eCW1 ([facility]) red food dye red food dye red food dye rash Active eCW1 ([facility], 1928–[facility]) Vicodin Vicodin Vicodin Confusion Active eCW1 ([facility]) Readi-Cat Readi-Cat Readi-Cat Hives Active eCW1 ([facility]) Family History Family Member Name Family Member Gender Family Member Status Date o f Status Description Data Source(s) Unknown Female Problem MEDENT ([facility]) Encounters Encounter Providers Location Date Indications Data Source(s ) [place] [address] [facility] [address] 05/22/2020 12:00:00 AM EST eCW1 ([facility]) [place] [address] [facility] [address] 05/11/2020 12:00:00 AM EST eCW1 ([facility]) [place] [address] [facility] [address] 05/09/2020 12:00:00 AM EST eCW1 ([facility]) [place] [address] [facility] [address] 05/08/2020 12:00:00 AM EST eCW1 ([facility]) [place] [address] [facility] [address] 05/08/2020 12:00:00 AM EST eCW1 ([facility]) [place] [address] [facility] [address] 05/03/2020 12:00:00 AM EST eCW1 ([facility]) [place] [address] [facility] [address] 05/03/2020 12:00:00 AM EST eCW1 ([facility]) [place] [address] [facility] [address] 05/02/2020 12:00:00 AM EST eCW1 ([facility]) [place] [address] [facility] [address] 04/28/2020 12:00:00 AM EST eCW1 ([facility]) Outpatient Attender: Silver Carrillo/Pancho/Ivan/Luba yip 04/26/2020 09:30:00 AM EST MEDENT ([facility]) [place] [address] [facility] [address] 04/24/2020 12:00:00 AM EST eCW1 ([facility]) [place] [address] [facility] [address] 04/24/2020 12:00:00 AM EST eCW1 ([facility]) [place] [address] [facility] [address] 04/21/2020 12:00:00 AM EST eCW1 ([facility]) [place] [address] [facility] [address] 04/21/2020 12:00:00 AM EST eCW1 ([facility]) [place] [address] [facility] [address] 04/17/2020 12:00:00 AM EST eCW1 ([facility]) [place] [address] [facility] [address] 04/12/2020 12:00:00 AM EST eCW1 ([facility]) Outpatient [address] [facility] [place] [address] 04/12/2020 12:00:00 AM EST eCW1 ([facility]) [place] [address] [facility] [address] 04/10/2020 12:00:00 AM EST eCW1 ([facility]) Outpatient [address] [facility] [place] [address] 04/03/2020 12:00:00 AM EST eCW1 ([facility]) Unknown [address] [facility] [address] 03/31/2020 12:00:00 AM EST eCW1 [facility] Outpatient Attender: VANNESSA Wrayillus 03/30/2020 01:30:00 PM EST MEDENT ([facility]) [place] [address] [facility] [address] 03/28/2020 12:00:00 AM EST eCW1 ([facility]) Unknown [address] [facility] Y [address] 03/28/2020 12:00:00 AM EST eCW1 ([facility]) Unknown [address] [facility] Y [address] 03/24/2020 12:00:00 AM EST eCW1 ([facility]) [place] [address] [facility] [address] 03/24/2020 12:00:00 AM EST eCW1 ([facility]) [place] [address] [facility] [address] 03/24/2020 12:00:00 AM EST eCW1 ([facility]) Outpatient<td ID="encounterTypeDescripti onID0">NEW PATIENT WITH REFERRAL</td><td>Mar Sarah DO</td><td>Jhony Amado MD [employer]</td><td>03/21/2020</td><td>8:13AM</td><td>10:17AM</td><td><content ID="encounterDiagnosisID0-0">Dry Eye Syndrome</content>, <content ID="encounterDiagnosisID0-1">Cataract Senile Nuclear</content>, <content ID="encounterDiagnosisID0-2">Vitreous Disorders Degeneration</content>, <content ID="encounterDiagnosisID0-3">Taking Medication For Diabetes Long-term Use of Insulin</content>, <content ID="encounterDiagnosisID0-4">Diabetes Mellitus Type 2 Without Complication</content>, <content ID="encounterDiagnosisID0-5">Corneal Dystrophy Endothelial</content>, <content ID="encounterDiagnosisID0-6">Transient Visual Loss</content></td> Attender: MAR Reagan MD [employer] [facility] 03/21/2020 08:13:00 AM EST - 03/21/2020 10:17:00 AM ES T Transient Visual LossCorneal Dystrophy EndothelialDiabetes Mellitus Type 2 Without ComplicationTaking Medication For Diabetes Long-term Use of InsulinVitreous Disorders DegenerationCataract Senile NuclearDry Eye Syndrome GARY (Jhony Lowery MD [employer] [facility]) Transient Visual Loss Corneal Dystrophy Endothelial Diabetes Mellitus Type 2 Without Complic ation Taking Medication For Diabetes Long-term Use of Insulin Vitreous Disorders Degeneration Cataract Senile Nuclear Dry Eye Syndrome Unknown [address] [facility] [address] 03/21/2020 12:00:00 AM EST eCW1 ([facility]) [place] [address] [facility] [address] 03/20/2020 12:00:00 AM EST eCW1 ([facility]) Unknown [address] [facility] [place] [address] 03/20/2020 12:00:00 AM EST eCW1 ([facility]) Unknown [address] [facility] [place] [address] 03/20/2020 12:00:00 AM EST eCW1 ([facility]) Outpatient Attender: CRISTOPHER REESE [facility] Office 06/2019 08:00:00 AM EST MEDENT ([facility] Unknown [address] [facility] [place] [address] 03/16/2020 12:00:00 AM EST eCW1 ([facility]) Outpatient Attender: Silver Carrillo/Pancho/Ivan/Luba dl 03/15/2020 12:30:00 PM EST MEDENT ([facility]) Unknown [address] [facility] [place] [address] 03/02/2020 12:00:00 AM EST eCW1 ([facility]) Unknown [address] [facility] [place] [address] 03/01/2020 12:00:00 AM EST eCW1 ([facility]) Outpatient [address] [facility] Y [address] 03/01/2020 12:00:00 AM EST eCW1 ([facility]) Unknown [address] [facility] Y [address] 02/21/2020 12:00:00 AM EST eCW1 ([facility]) Outpatient [address] [facility] Y [address] 02/18/2020 12:00:00 AM EST eCW1 ([facility]) Outpatient [address] [facility] Y [address] 02/11/2020 12:00:00 AM EDT eCW1 ([facility]) Unknown [address] [facility] [place] [address] 02/07/2020 12:00:00 AM EDT eCW1 ([facility]) [place] [address] [facility] [address] 02/04/2020 12:00:00 AM EDT eCW1 ([facility]) [place] [address] [facility] [address] 02/03/2020 12:00:00 AM EDT eCW1 ([facility]) [place] [address] [facility] [address] 01/26/2020 12:00:00 AM EDT eCW1 ([facility]) [place] [address] [facility] [address] 01/24/2020 12:00:00 AM EDT eCW1 ([facility]) [place] [address] [facility] [place] [address] 01/19/2020 12:00:00 AM EDT eCW1 ([facility]) [place] [address] [facility] [address] 01/17/2020 12:00:00 AM EDT eCW1 ([facility]) Unknown [address] [facility] [place] [address] 01/14/2020 12:00:00 AM EDT eCW1 ([facility]) [place] [address] [facility] [place] [address] 01/13/2020 12:00:00 AM EDT eCW1 ([facility]) [place] [address] [facility] [address] 01/12/2020 12:00:00 AM EDT eCW1 ([facility]) Outpatient Attender: Toribio Carrillo/Pancho/Ivan/Reindl 01/10/2020 02:30:00 PM EDT MEDENT ([facility]) Office Visit Attender: Silver Carrillo/Pancho/Ivan/Rein dl 12/29/2019 09:50:00 AM EDT MEDENT ([facility]) Office Visit Attender: Toribio Yilucia Carrillo/[place]/Ivan/Reindl 12/27/2019 03:00:00 PM EDT MEDENT ([facility] [place] [address] [facility] [address] 12/24/2019 12:00:00 AM EDT eCW1 ([facility]) Outpatient Attender: CRISTOPHER REESE [facility] Office 04/2019 09:00:00 AM EDT MEDENT ([facility] Outpatient Attender: Silver Carrillo/Pancho/Ivan/Rein dl 11/10/2019 10:40:00 AM EDT MEDENT ([facility] [place] [address] [facility] [address] 11/02/2019 12:00:00 AM EDT eCW1 ([facility]) Out[place] [address] [facility] [place] [address] 11/02/2019 12:00:00 AM EDT eCW1 ([facility]) [place] [address] [facility] [place] [address] 11/01/2019 12:00:00 AM EDT eCW1 ([facility]) [place] [address] [facility] [address] 11/01/2019 12:00:00 AM EDT eCW1 ([facility]) [place] [address] [facility] [place] [address] 10/29/2019 12:00:00 AM EDT eCW1 ([facility]) [place] [address] [facility] [place] [address] 10/25/2019 12:00:00 AM EDT eCW1 ([facility]) [place] [address] [facility] [place] [address] 10/25/2019 12:00:00 AM EDT eCW1 ([facility]) [place] [address] [facility] [place] [address] 10/21/2019 12:00:00 AM EDT eCW1 ([facility]) [place] [address] [facility] [place] [address] 10/20/2019 12:00:00 AM EDT eCW1 ([facility] [place]) Outpatient Attender: CRISTOPHER REESE [facility] Office 09/13 10:30:00 AM EDT MEDENT ([facility] Outpatient Referrer: Tutu Sanchez MD 10/08/2019 05:33:00 AM EDT [facility] Unknown [address] [facility] [address] 09/30/2019 12:00:00 AM EDT eCW1 ([facility]) [place] [address] [facility] [place] [address] 09/30/2019 12:00:00 AM EDT eCW1 ([facility]) [place] [address] [facility] [address] 09/29/2019 12:00:00 AM EDT eCW1 ([facility]) [place] [address] [facility] [place] [address] 09/28/2019 12:00:00 AM EDT eCW1 ([facility]) [place] [address] [facility] [address] 09/28/2019 12:00:00 AM EDT eCW1 ([facility]) Outpatient [address] [facility] [address] 09/27/2019 12:00:00 AM EDT eCW1 ([facility]) Unknown [address] [facility] [address] 09/22/2019 12:00:00 AM EDT eCW1 ([facility]) [facility] [address] [place] [address] 09/22/2019 12:00:00 AM EDT eCW1 ([facility]) [place] [address] [facility] [place] [address] 09/20/2019 12:00:00 AM EDT eCW1 ([facility]) [place] [address] [facility] [place] [address] 09/20/2019 12:00:00 AM EDT eCW1 ([facility]) [place] [address] [facility] [place] [address] 09/17/2019 12:00:00 AM EDT eCW1 ([facility]) [place] [address] [facility] [place] [address] 09/17/2019 12:00:00 AM EDT eCW1 ([facility]) [facility] [address] [facility] [address] 09/17/2019 12:00:00 AM EDT eCW1 ([facility]) [facility] [address] [facility] [place] [address] 09/13/2019 12:00:00 AM EDT eCW1 ([facility]) [place] [address] [facility] [place] [address] 09/10/2019 12:00:00 AM EDT eCW1 ([facility]) [facility] [address] [facility] [address] 09/09/2019 12:00:00 AM EDT eCW1 ([facility]) [facility] [address] [facility] [place] [address] 09/09/2019 12:00:00 AM EDT eCW1 ([facility]) [facility] [address] [facility] [address] 09/07/2019 12:00:00 AM EDT eCW1 ([facility]) [facility] [address] [place] [address] 09/07/2019 12:00:00 AM EDT eCW1 ([facility]) [place] [address] [facility] [place] [address] 09/03/2019 12:00:00 AM EDT eCW1 ([facility]) [address] [address] 09/01/2019 12:00:00 AM EDT eCW1 ([facility]) Outpatient Attender: CRISTOPHER REESE [facility] Office 08/12 10:30:00 AM EDT MEDENT ([facility] [address] [place] [address] 08/27/2019 12:00:00 AM EDT eCW1 ([facility]) [address] [place] [address] 08/26/2019 12:00:00 AM EDT eCW1 ([facility]) [address], [place] [address] 08/26/2019 12:00:00 AM EDT eCW1 ([facility]) Outpatient Referrer: Tutu Sanchez MD 08/24/2019 06:01:00 AM EDT [facility] [address] [address] 08/24/2019 12:00:00 AM EDT eCW1 ([facility]) [address] [address] 08/20/2019 12:00:00 AM EDT eCW1 ([facility]) [address] [place] [address] 08/19/2019 12:00:00 AM EDT eCW1 ([facility]) [address] [address] 08/18/2019 12:00:00 AM EDT eCW1 ([facility]) [address] [address] 08/18/2019 12:00:00 AM EDT eCW1 ([facility]) [facility] [address] [facility] [address] 08/17/2019 12:00:00 AM EDT eCW1 ([facility]) TeleMedicine Phone E/M by Phys 11-20 Min [address] [place] [address] 08/13/2019 12:00:00 AM EDT eCW1 ([facility]) Outpatient [address] [facility] [address] 08/12/2019 12:00:00 AM EDT eCW1 ([facility]) [facility] [address] [facility] [address] 08/12/2019 12:00:00 AM EDT eCW1 ([facility]) [facility] [address] [facility] [address] 08/11/2019 12:00:00 AM EDT eCW1 ([facility]) [facility] [address] [facility] [address] 08/10/2019 12:00:00 AM EDT eCW1 ([facility]) [facility] [address] [facility] [address] 08/09/2019 12:00:00 AM EDT eCW1 ([facility]) [facility] [address] [facility] [address] 08/09/2019 12:00:00 AM EDT eCW1 ([facility]) [facility] [address] [facility] [address] 08/09/2019 12:00:00 AM EDT eCW1 ([facility]) Outpatient [address] [facility] [address] 08/06/2019 12:00:00 AM EDT eCW1 ([facility]) [address] [address] 08/04/2019 12:00:00 AM EDT eCW1 ([facility]) [facility] [address] [place] [address] [place] [address] 08/02/2019 12:00:00 AM EDT eCW1 ([facility]) [facility] [address] [place] [address] [place] [address] 08/02/2019 12:00:00 AM EDT eCW1 ([facility]) Outpatient [address] [place] [address] [place] [address] 07/30/2019 12:00:00 AM EDT eCW1 ([facility]) [address] [place] [address] 07/30/2019 12:00:00 AM EDT eCW1 ([facility]) Outpatient Attender: CRISTOPHER REESE [facility] Office 07/13 10:30:00 AM EDT [facility] ([facility] [address] [place] [address] 07/29/2019 12:00:00 AM EDT eCW1 ([facility]) [facility] [address] [place] [address] 07/29/2019 12:00:00 AM EDT eCW1 ([facility]) [address] [place] [address] 07/28/2019 12:00:00 AM EDT eCW1 ([facility]) [facility] [address] [place] [address] 07/28/2019 12:00:00 AM EDT eCW1 ([facility]) Unknown [address] [place] [address] [place] [address] 07/27/2019 12:00:00 AM EDT eCW1 ([facility]) [address] [place] [address] 07/27/2019 12:00:00 AM EDT eCW1 ([facility]) [facility] [address] [facility] [address] 07/27/2019 12:00:00 AM EDT eCW1 ([facility]) [facility] [address] [facility] [address] 07/26/2019 12:00:00 AM EDT eCW1 ([facility]) Outpatient Referrer: Tutu Sanchez MD 07/23/2019 12:47:00 PM EDT [facility] Outpatient [address] [facility] [address] 07/23/2019 12:00:00 AM EDT eCW1 ([facility] [address] [facility] [address] 07/22/2019 12:00:00 AM EDT eCW1 ([facility]) [facility] [address] [place] [address], [place] [address] 07/21/2019 12:00:00 AM EDT eCW1 ([facility]) [place] [address] [facility] [address] 07/16/2019 12:00:00 AM EDT eCW1 ([facility]) [facility] [address] [facility] [address] 07/16/2019 12:00:00 AM EDT eCW1 ([facility]) [facility] [address] [place] [address], [place] [address] 07/16/2019 12:00:00 AM EDT eCW1 ([facility]) [facility] [address] [facility] [address] 07/13/2019 12:00:00 AM EDT eCW1 ([facility]) [place] [address] [facility] [address] 07/13/2019 12:00:00 AM EDT eCW1 ([facility]) [facility] [address] [place] [address], [place] [address] 07/12/2019 12:00:00 AM EDT eCW1 ([facility]) [facility] [address] [place] [address], [place] [address] 07/12/2019 12:00:00 AM EDT eCW1 ([facility]) [facility] [address] [place] [address], [place] [address] 07/12/2019 12:00:00 AM EDT eCW1 ([facility]) [facility] [address] [place] [address], [place] [address] 07/08/2019 12:00:00 AM EDT eCW1 ([facility]) [facility] [address] [place] [address], [place] [address] 07/07/2019 12:00:00 AM EDT eCW1 ([facility]) [facility] [address] [place] [address], [place] [address] 07/06/2019 12:00:00 AM EDT eCW1 ([facility]) [facility] [address] [place] [address], [place] [address] 07/05/2019 12:00:00 AM EDT eCW1 ([facility]) [facility] [address] [place] [address], [place] [address] 07/05/2019 12:00:00 AM EDT eCW1 ([facility]) [facility] [address] [place] [address], [place] [address] 07/05/2019 12:00:00 AM EDT eCW1 ([facility]) [facility] [address] [place] [address], [place] [address] 07/05/2019 12:00:00 AM EDT eCW1 ([facility]) [address] [address] 07/03/2019 12:00:00 AM EDT eCW1 ([facility]) [facility] [address] [place] [address], [place] [address] 07/02/2019 12:00:00 AM EDT eCW1 ([facility]) [facility] [address] [place] [address], [place] [address] 07/01/2019 12:00:00 AM EDT eCW1 ([facility]) [facility] [address] [place] [address] 06/29/2019 12:00:00 AM EDT eCW1 ([facility] [place]) [address] [address] 06/29/2019 12:00:00 AM EDT eCW1 ([facility] [place]) Outpatient Attender: CRISTOPHER REESE [facility] Office 06/12 02:30:00 PM EDT [facility] ([facility] [address] [address] 06/25/2019 12:00:00 AM EDT eCW1 [facility]) [address] [address] 06/23/2019 12:00:00 AM EDT eCW1 ([facility]) [address] [address] 06/23/2019 12:00:00 AM EDT eCW1 ([facility]) [address] [address] 06/22/2019 12:00:00 AM EDT eCW1 ([facility]) Outpatient [address] [place] [address], [place] [address] 06/21/2019 12:00:00 AM EDT eCW1 ([facility]) [address] [address] 06/18/2019 12:00:00 AM EST eCW1 ([facility]) [facility] [address] [place] [address], [place] [address] 06/17/2019 12:00:00 AM EST eCW1 ([facility]) [facility] [address] [place] [address], [place] [address] 06/17/2019 12:00:00 AM EST eCW1 ([facility]) [facility] [address] [place] [address], [place] [address] 06/15/2019 12:00:00 AM EST eCW1 ([facility]) [address] [address] 06/15/2019 12:00:00 AM EST eCW1 ([facility]) [address] [address] 06/14/2019 12:00:00 AM EST eCW1 ([facility]) [address] [address] 06/14/2019 12:00:00 AM EST eCW1 ([facility]) [address] [address] 06/11/2019 12:00:00 AM EST eCW1 ([facility]) [address] [address] 06/11/2019 12:00:00 AM EST eCW1 ([facility]) [address] [address] 06/11/2019 12:00:00 AM EST eCW1 ([facility]) [address] [address] 06/08/2019 12:00:00 AM EST eCW1 ([facility]) [address] [address] 06/07/2019 12:00:00 AM EST eCW1 ([facility]) [address] [address] 06/06/2019 12:00:00 AM EST eCW1 ([facility]) [address] [address] 06/04/2019 12:00:00 AM EST eCW1 ([facility]) [address] [address] 05/31/2019 12:00:00 AM EST eCW1 ([facility]) Outpatient Attender: CRISTOPHER REESE [facility] Office 05/15 01:30:00 PM EST [facility] ([facility] [address] [address] 05/19/2019 12:00:00 AM EST eCW1 ([facility]) [address] [address] 05/18/2019 12:00:00 AM EST eCW1 ([facility]) [address] [address] 05/17/2019 12:00:00 AM EST eCW1 ([facility]) [address] [address] 05/14/2019 12:00:00 AM EST eCW1 ([facility]) [address] [address] 05/13/2019 12:00:00 AM EST eCW1 ([facility]) [address] [address] 05/12/2019 12:00:00 AM EST eCW1 ([facility]) [address] [address] 05/08/2019 12:00:00 AM EST eCW1 ([facility]) [facility] [place] [address] [facility] [address] 05/05/2019 12:00:00 AM EST eCW1 ([facility]) [facility] [place] [address] [facility] [address] 05/01/2019 12:00:00 AM EST eCW1 ([facility]) [facility] [place] [address] [place] [address], [place] [address] 04/29/2019 12:00:00 AM EST eCW1 ([facility]) [facility] [address] [place] [address], [place] [address] 04/26/2019 12:00:00 AM EST eCW1 ([facility]) [facility] [address] [place] [address], [place] [address] 04/22/2019 12:00:00 AM EST eCW1 ([facility]) [facility] [place] [address] [place] [address], [place] [address] 04/20/2019 12:00:00 AM EST eCW1 ([facility]) [facility] [address] [place] [address], [place] [address] 04/19/2019 12:00:00 AM EST eCW1 ([facility]) [facility] [address] [place] [address], [place] [address] 04/15/2019 12:00:00 AM EST eCW1 ([facility]) [facility] [address] [place] [address], [place] [address] 04/15/2019 12:00:00 AM EST eCW1 ([facility]) [address] [address] 04/13/2019 12:00:00 AM EST eCW1 ([facility]) [address] [address] 04/09/2019 12:00:00 AM EST eCW1 ([facility]) [facility] [address] [facility] [address] 04/08/2019 12:00:00 AM EST eCW1 ([facility]) [facility] [address] [facility] [address] 04/02/2019 12:00:00 AM EST eCW1 ([facility]) [facility] [address] [facility] [address] 04/01/2019 12:00:00 AM EST eCW1 ([facility]) Immunizations Vaccine Date Status Description Data Source(s) Toradol 60mg/2mL (Ketorolac) 07/30/2019 08:29:00 AM EDT completed eCW1 ([facility]) Toradol 60mg/2mL (Ketorolac) 07/30/2019 08:29:00 AM EDT completed eCW1 ([facility]) Toradol 60mg/2mL (Ketorolac) 07/30/2019 08:29:00 AM EDT completed eCW1 ([facility]) Toradol 60mg/2mL (Ketorolac) 07/30/2019 08:29:00 AM EDT completed eCW1 ([facility]) Toradol 60mg/2mL (Ketorolac) 07/30/2019 08:29:00 AM EDT completed eCW1 ([facility]) Toradol 60mg/2mL (Ketorolac) 07/30/2019 08:29:00 AM EDT completed eCW1 ([facility]) Toradol 60mg/2mL (Ketorolac) 07/30/2019 08:29:00 AM EDT completed eCW1 ([facility]) Toradol 60mg/2mL (Ketorolac) 07/30/2019 08:29:00 AM EDT completed eCW1 ([facility]) Toradol 60mg/2mL (Ketorolac) 07/30/2019 08:29:00 AM EDT completed eCW1 ([facility]) Toradol 60mg/2mL (Ketorolac) 07/30/2019 08:29:00 AM EDT completed eCW1 ([facility]) Toradol 60mg/2mL (Ketorolac) 07/30/2019 08:29:00 AM EDT completed eCW1 ([facility]) Toradol 60mg/2mL (Ketorolac) 07/30/2019 08:29:00 AM EDT completed eCW1 ([facility]) Toradol 60mg/2mL (Ketorolac) 07/30/2019 08:29:00 AM EDT completed eCW1 ([facility]) Toradol 60mg/2mL (Ketorolac) 07/30/2019 08:29:00 AM EDT completed eCW1 ([facility]) Toradol 60mg/2mL (Ketorolac) 07/30/2019 08:29:00 AM EDT completed eCW1 ([facility]) Toradol 60mg/2mL (Ketorolac) 07/30/2019 08:29:00 AM EDT completed eCW1 ([facility]) Toradol 60mg/2mL (Ketorolac) 07/30/2019 08:29:00 AM EDT completed eCW1 ([facility]) Toradol 60mg/2mL (Ketorolac) 07/30/2019 08:29:00 AM EDT completed eCW1 ([facility]) Toradol 60mg/2mL (Ketorolac) 07/30/2019 08:29:00 AM EDT completed eCW1 ([facility]) Toradol 60mg/2mL (Ketorolac) 07/30/2019 08:29:00 AM EDT completed eCW1 ([facility]) Toradol 60mg/2mL (Ketorolac) 07/30/2019 08:29:00 AM EDT completed eCW1 ([facility]) Toradol 60mg/2mL (Ketorolac) 07/30/2019 08:29:00 AM EDT completed eCW1 ([facility]) Toradol 60mg/2mL (Ketorolac) 07/30/2019 08:29:00 AM EDT completed eCW1 ([facility]) Toradol 60mg/2mL (Ketorolac) 07/30/2019 08:29:00 AM EDT completed eCW1 ([facility]) Toradol 60mg/2mL (Ketorolac) 07/30/2019 08:29:00 AM EDT completed eCW1 ([facility]) Toradol 60mg/2mL (Ketorolac) 07/30/2019 08:29:00 AM EDT completed eCW1 ([facility]) Toradol 60mg/2mL (Ketorolac) 07/30/2019 08:29:00 AM EDT completed eCW1 ([facility]) Toradol 60mg/2mL (Ketorolac) 07/30/2019 08:29:00 AM EDT completed eCW1 ([facility]) Toradol 60mg/2mL (Ketorolac) 07/30/2019 08:29:00 AM EDT completed eCW1 ([facility]) Toradol 60mg/2mL (Ketorolac) 07/30/2019 08:29:00 AM EDT completed eCW1 ([facility]) Toradol 60mg/2mL (Ketorolac) 07/30/2019 08:29:00 AM EDT completed eCW1 ([facility]) Toradol 60mg/2mL (Ketorolac) 07/30/2019 08:29:00 AM EDT completed eCW1 ([facility]) Toradol 60mg/2mL (Ketorolac) 07/30/2019 08:29:00 AM EDT completed eCW1 ([facility]) Toradol 60mg/2mL (Ketorolac) 07/30/2019 08:29:00 AM EDT completed eCW1 ([facility]) Toradol 60mg/2mL (Ketorolac) 07/30/2019 08:29:00 AM EDT completed eCW1 ([facility]) Toradol 60mg/2mL (Ketorolac) 07/30/2019 08:29:00 AM EDT completed eCW1 ([facility]) Toradol 60mg/2mL (Ketorolac) 07/30/2019 08:29:00 AM EDT completed eCW1 ([facility]) Toradol 60mg/2mL (Ketorolac) 07/30/2019 08:29:00 AM EDT completed eCW1 ([facility]) Toradol 60mg/2mL (Ketorolac) 07/30/2019 08:29:00 AM EDT completed eCW1 ([facility]) Toradol 60mg/2mL (Ketorolac) 07/30/2019 08:29:00 AM EDT completed eCW1 ([facility]) Toradol 60mg/2mL (Ketorolac) 07/30/2019 08:29:00 AM EDT completed eCW1 ([facility]) Toradol 60mg/2mL (Ketorolac) 07/30/2019 08:29:00 AM EDT completed eCW1 ([facility]) Toradol 60mg/2mL (Ketorolac) 07/30/2019 08:29:00 AM EDT completed eCW1 ([facility]) Toradol 60mg/2mL (Ketorolac) 07/30/2019 08:29:00 AM EDT completed eCW1 ([facility]) Toradol 60mg/2mL (Ketorolac) 07/30/2019 08:29:00 AM EDT completed eCW1 ([facility]) Toradol 60mg/2mL (Ketorolac) 07/30/2019 08:29:00 AM EDT completed eCW1 ([facility]) Toradol 60mg/2mL (Ketorolac) 07/30/2019 08:29:00 AM EDT completed eCW1 ([facility]) Toradol 60mg/2mL (Ketorolac) 07/30/2019 08:29:00 AM EDT completed eCW1 ([facility]) Toradol 60mg/2mL (Ketorolac) 07/30/2019 08:29:00 AM EDT completed eCW1 ([facility]) Toradol 60mg/2mL (Ketorolac) 07/30/2019 08:29:00 AM EDT completed eCW1 ([facility]) Toradol 60mg/2mL (Ketorolac) 07/30/2019 08:29:00 AM EDT completed eCW1 ([facility]) Toradol 60mg/2mL (Ketorolac) 07/30/2019 08:29:00 AM EDT completed eCW1 ([facility]) Toradol 60mg/2mL (Ketorolac) 07/30/2019 08:29:00 AM EDT completed eCW1 ([facility]) Toradol 60mg/2mL (Ketorolac) 07/30/2019 08:29:00 AM EDT completed eCW1 ([facility]) Toradol 60mg/2mL (Ketorolac) 07/30/2019 08:29:00 AM EDT completed eCW1 ([facility]) Toradol 60mg/2mL (Ketorolac) 07/30/2019 08:29:00 AM EDT completed eCW1 ([facility]) Toradol 60mg/2mL (Ketorolac) 07/30/2019 08:29:00 AM EDT completed eCW1 ([facility]) Toradol 60mg/2mL (Ketorolac) 07/30/2019 08:29:00 AM EDT completed eCW1 ([facility]) Toradol 60mg/2mL (Ketorolac) 07/30/2019 08:29:00 AM EDT completed eCW1 ([facility]) Toradol 60mg/2mL (Ketorolac) 07/30/2019 08:29:00 AM EDT completed eCW1 ([facility]) Toradol 60mg/2mL (Ketorolac) 07/30/2019 08:29:00 AM EDT completed eCW1 ([facility]) Toradol 60mg/2mL (Ketorolac) 07/30/2019 08:29:00 AM EDT completed eCW1 ([facility]) Toradol 60mg/2mL (Ketorolac) 07/30/2019 08:29:00 AM EDT completed eCW1 ([facility]) Toradol 60mg/2mL (Ketorolac) 07/30/2019 08:29:00 AM EDT completed eCW1 ([facility]) Toradol 60mg/2mL (Ketorolac) 07/30/2019 08:29:00 AM EDT completed eCW1 ([facility]) Toradol 60mg/2mL (Ketorolac) 07/30/2019 08:29:00 AM EDT completed eCW1 ([facility]) Toradol 60mg/2mL (Ketorolac) 07/30/2019 08:29:00 AM EDT completed eCW1 ([facility]) Toradol 60mg/2mL (Ketorolac) 07/30/2019 08:29:00 AM EDT completed eCW1 ([facility]) Toradol 60mg/2mL (Ketorolac) 07/30/2019 08:29:00 AM EDT completed eCW1 ([facility]) Toradol 60mg/2mL (Ketorolac) 07/30/2019 08:29:00 AM EDT completed eCW1 ([facility]) Medications Medication Brand Name Start Date Product [...] act nba Mupirocin Calcium 2 % eCW1 ([facility]) Mupirocin 20 MG/ML Topical Cream Mupirocin Calcium 2 % Mupir ocin Calcium 2 % 05/12/2020 12:00:00 AM EST 1.0 {application} act nba Mupirocin Calcium 2 % eCW1 ([facility]) 0.01 % (0.1 mg/gram) 05/12/2020 12:00:00 AM [...] A D AY BEFORE MEALS SOLD: 05/04/2020 [facility] 100,000 unit/gram 04/28/2020 12:00:00 AM [...] Doxycycline Monohydrate 100 MG Oral Capsule Doxycycline [place] hydrate 100 MG 04/12/2020 12:00:00 AM EST 1.0 {capsule} suspend ed Doxycycline Monohydrate 100 MG eCW1 ([facility]) Doxycycline Monohydrate 100 MG Oral Capsule Doxycycline [place] hydrate 100 MG 04/12/2020 12:00:00 AM EST 1.0 {capsule} active Doxycycline Monohydrate 100 MG eCW1 ([facility]) Mometasone Furoate 50 MCG/ACT Mometasone Furoate 50 MCG/ACT 04/12/2020 12:00:00 AM EST 2.0 {sprays_in_each_nostril} active Mometasone Furoate 50 MCG/ACT eCW1 ([facility]) Doxycycline Monohydrate 100 MG Oral Capsule Doxycycline [place] hydrate 100 MG 04/12/2020 12:00:00 AM EST 1.0 {capsule} active Doxycycline Monohydrate 100 MG eCW1 ([facility]) Doxycycline Monohydrate 100 MG Oral Capsule Doxycycline [place] hydrate 100 MG 04/12/2020 12:00:00 AM EST 1.0 {capsule} active Doxycycline Monohydrate 100 MG eCW1 ([facility]) mesalamine 1000 MG Rectal Suppository Mesalamine 1000 MG Mes alamine 1000 MG 04/12/2020 12:00:00 AM EST 1.0 {suppository_at_bedtime} active Mesalamine 1000 MG eCW1 ([facility]) 10 gram/15 mL 04/12/2020 12:00:00 AM EST solution 1419 TAKE 15ML BY MOUTH THREE TIMES A DAY TAKE 15ML BY MOUTH THREE TIMES A DAY SOLD: 05/10/2020 [facility] Mometasone Furoate 50 MCG/ACT Mometasone Furoate 50 MCG/ACT 04/12/2020 12:00:00 AM EST 2.0 {sprays_in_each_nostril} active Mometasone Furoate 50 MCG/ACT eCW1 ([facility] [place]) mesalamine 1000 MG Rectal Suppository Mesalamine 1000 MG Mes alamine 1000 MG 04/12/2020 12:00:00 AM EST 1.0 {suppository_at_bedtime} active Mesalamine 1000 MG eCW1 (Formerly [facility] [place]) Mometasone Furoate 50 MCG/ACT Mometasone Furoate 50 MCG/ACT 04/12/2020 12:00:00 AM EST 2.0 {sprays_in_each_nostril} active Mometasone Furoate 50 MCG/ACT eCW1 (Formerly [facility] [place]) Mometasone Furoate 50 MCG/ACT Mometasone Furoate 50 MCG/ACT 04/12/2020 12:00:00 AM EST 2.0 {sprays_in_each_nostril} active Mometasone Furoate 50 MCG/ACT eCW1 (Formerly [facility] [place]) mesalamine 1000 MG Rectal Suppository Mesalamine 1000 MG Mes alamine 1000 MG 04/12/2020 12:00:00 AM EST 1.0 {suppository_at_bedtime} active Mesalamine 1000 MG eCW1 (Formerly [facility] [place]) mesalamine 1000 MG Rectal Suppository Mesalamine 1000 MG Mes alamine 1000 MG 04/12/2020 12:00:00 AM EST 1.0 {suppository_at_bedtime} active Mesalamine 1000 MG eCW1 (Formerly [facility] [place]) mesalamine 1000 MG Rectal Suppository Mesalamine 1000 MG Mes alamine 1000 MG 04/12/2020 12:00:00 AM EST 1.0 {suppository_at_bedtime} active Mesalamine 1000 MG eCW1 (Formerly [facility] [place]) Mometasone Furoate 50 MCG/ACT Mometasone Furoate 50 MCG/ACT 04/12/2020 12:00:00 AM EST 2.0 {sprays_in_each_nostril} active Mometasone Furoate 50 MCG/ACT eCW1 (Formerly [facility] [place]) mesalamine 1000 MG Rectal Suppository Mesalamine 1000 MG Mes alamine 1000 MG 04/12/2020 12:00:00 AM EST 1.0 {suppository_at_bedtime} active Mesalamine 1000 MG eCW1 (Formerly [facility] [place]) Doxycycline Monohydrate 100 MG Oral Capsule Doxycycline [place] hydrate 100 MG 04/12/2020 12:00:00 AM EST 1.0 {capsule} active Doxycycline Monohydrate 100 MG eCW1 (Formerly [facility]) 12 % 04/12/2020 12:00:00 AM EST cream 140 APPLY 1 APPLICATION TO FEET TWICE A DAY APPLY 1 APPLICATION TO FEET TWICE A DAY SOLD: 05/10/2020 [facility] mesalamine 1000 MG Rectal Suppository Mesalamine 1000 MG Mes alamine 1000 MG 04/12/2020 12:00:00 AM EST 1.0 {suppository_at_bedtime} active Mesalamine 1000 MG eCW1 (Formerly [facility]) Mometasone Furoate 50 MCG/ACT Mometasone Furoate 50 MCG/ACT 04/12/2020 12:00:00 AM EST 2.0 {sprays_in_each_nostril} active Mometasone Furoate 50 MCG/ACT eCW1 (Formerly [facility]) mesalamine 1000 MG Rectal Suppository Mesalamine 1000 MG Mes alamine 1000 MG 04/12/2020 12:00:00 AM EST 1.0 {suppository_at_bedtime} active Mesalamine 1000 MG eCW1 (Formerly [facility]) Doxycycline Monohydrate 100 MG Oral Capsule Doxycycline [place] hydrate 100 MG 04/12/2020 12:00:00 AM EST 1.0 {capsule} active Doxycycline Monohydrate 100 MG eCW1 (Formerly [facility]) mesalamine 1000 MG Rectal Suppository Mesalamine 1000 MG Mes alamine 1000 MG 04/12/2020 12:00:00 AM EST 1.0 {suppository_at_bedtime} active Mesalamine 1000 MG eCW1 (Formerly [facility]) 1,000 mg 04/12/2020 12:00:00 AM EST suppository 30 INSERT ONE SUPPOSITORY RECTALLY AT BEDTIME INSERT ONE SUPPOSITORY RECTALLY AT BEDTIME SOLD: 05/10/2020 [email or web address] Doxycycline Monohydrate 100 MG Oral Capsule Doxycycline [place] hydrate 100 MG 04/12/2020 12:00:00 AM EST 1.0 {capsule} active Doxycycline Monohydrate 100 MG eCW1 (Formerly [facility]) 12 % 04/12/2020 12:00:00 AM EST cream 140 APPLY 1 APPLICATION TO FEET TWICE A DAY APPLY 1 APPLICATION TO FEET TWICE A DAY SOLD: 04/12/2020 [facility] 10 gram/15 mL 04/12/2020 12:00:00 AM EST solution 1419 TAKE 15ML BY MOUTH THREE TIMES A DAY TAKE 15ML BY MOUTH THREE TIMES A DAY SOLD: 04/12/2020 [facility] Doxycycline Monohydrate 100 MG Oral Capsule Doxycycline [place] hydrate 100 MG 04/12/2020 12:00:00 AM EST 1.0 {capsule} active Doxycycline Monohydrate 100 MG eCW1 ([facility]ly [facility]) Mometasone Furoate 50 MCG/ACT Mometasone Furoate 50 MCG/ACT 04/12/2020 12:00:00 AM EST 2.0 {sprays_in_each_nostril} active Mometasone Furoate 50 MCG/ACT eCW1 ([facility]ly [facility]) mesalamine 1000 MG Rectal Suppository Mesalamine 1000 MG Mes alamine 1000 MG 04/12/2020 12:00:00 AM EST 1.0 {suppository_at_bedtime} active Mesalamine 1000 MG eCW1 ([facility]ly [facility]) mesalamine 1000 MG Rectal Suppository Mesalamine 1000 MG Mes alamine 1000 MG 04/12/2020 12:00:00 AM EST 1.0 {suppository_at_bedtime} active Mesalamine 1000 MG eCW1 ([facility]ly [facility]) Doxycycline Monohydrate 100 MG Oral Capsule Doxycycline [place] hydrate 100 MG 04/12/2020 12:00:00 AM EST 1.0 {capsule} active Doxycycline Monohydrate 100 MG eCW1 ([facility]ly [facility]) mesalamine 1000 MG Rectal Suppository Mesalamine 1000 MG Mes alamine 1000 MG 04/12/2020 12:00:00 AM EST 1.0 {suppository_at_bedtime} active Mesalamine 1000 MG eCW1 ([facility]ly [facility]) mesalamine 1000 MG Rectal Suppository Mesalamine 1000 MG Mes alamine 1000 MG 04/12/2020 12:00:00 AM EST 1.0 {suppository_at_bedtime} active Mesalamine 1000 MG eCW1 ([facility]) Mometasone Furoate 50 MCG/ACT Mometasone Furoate 50 MCG/ACT 04/12/2020 12:00:00 AM EST 2.0 {sprays_in_each_nostril} active Mometasone Furoate 50 MCG/ACT eCW1 ([facility]) mesalamine 1000 MG Rectal Suppository Mesalamine 1000 MG Mes alamine 1000 MG 04/12/2020 12:00:00 AM EST 1.0 {suppository_at_bedtime} active Mesalamine 1000 MG eCW1 ([facility]ly [facility]) Mometasone Furoate 50 MCG/ACT Mometasone Furoate 50 MCG/ACT 04/12/2020 12:00:00 AM EST 2.0 {sprays_in_each_nostril} active Mometasone Furoate 50 MCG/ACT eCW1 ([facility]) Mometasone Furoate 50 MCG/ACT Mometasone Furoate 50 MCG/ACT 04/12/2020 12:00:00 AM EST 2.0 {sprays_in_each_nostril} active Mometasone Furoate 50 MCG/ACT eCW1 ([facility]) Doxycycline Monohydrate 100 MG Oral Capsule Doxycycline [place] hydrate 100 MG 04/12/2020 12:00:00 AM EST 1.0 {capsule} active Doxycycline Monohydrate 100 MG eCW1 ([facility]ly [facility]) mesalamine 1000 MG Rectal Suppository Mesalamine 1000 MG Mes alamine 1000 MG 04/12/2020 12:00:00 AM EST 1.0 {suppository_at_bedtime} active Mesalamine 1000 MG eCW1 ([facility]) Doxycycline Monohydrate 100 MG Oral Capsule Doxycycline [place] hydrate 100 MG 04/12/2020 12:00:00 AM EST 1.0 {capsule} active Doxycycline Monohydrate 100 MG eCW1 ([facility]) Mometasone Furoate 50 MCG/ACT Mometasone Furoate 50 MCG/ACT 04/12/2020 12:00:00 AM EST 2.0 {sprays_in_each_nostril} active Mometasone Furoate 50 MCG/ACT eCW1 ([facility]) Doxycycline Monohydrate 100 MG Oral Capsule Doxycycline [place] hydrate 100 MG 04/12/2020 12:00:00 AM EST 1.0 {capsule} active Doxycycline Monohydrate 100 MG eCW1 ([facility]ly [facility]) 100 mg 04/12/2020 12:00:00 AM EST capsule 20 TAKE ONE CAPSULE BY MOUTH TWICE A DAY FOR 10 DAYS TAKE ONE CAPSULE BY MOUTH TWICE A DAY FOR 10 DAYS SOLD : 04/12/2020 [facility] Doxycycline Monohydrate 100 MG Oral Capsule Doxycycline [place] hydrate 100 MG 04/12/2020 12:00:00 AM EST 1.0 {capsule} active Doxycycline Monohydrate 100 MG eCW1 ([facility]) Mometasone Furoate 50 MCG/ACT Mometasone Furoate 50 MCG/ACT 04/12/2020 12:00:00 AM EST 2.0 {sprays_in_each_nostril} active Mometasone Furoate 50 MCG/ACT eCW1 ([facility]) Mometasone Furoate 50 MCG/ACT Mometasone Furoate 50 MCG/ACT 04/12/2020 12:00:00 AM EST 2.0 {sprays_in_each_nostril} active Mometasone Furoate 50 MCG/ACT eCW1 ([facility]) Mometasone Furoate 50 MCG/ACT Mometasone Furoate 50 MCG/ACT 04/12/2020 12:00:00 AM EST 2.0 {sprays_in_each_nostril} active Mometasone Furoate 50 MCG/ACT eCW1 ([facility]) Mometasone Furoate 50 MCG/ACT Mometasone Furoate 50 MCG/ACT 04/12/2020 12:00:00 AM EST 2.0 {sprays_in_each_nostril} active Mometasone Furoate 50 MCG/ACT eCW1 ([facility]) Mometasone Furoate 50 MCG/ACT Mometasone Furoate 50 MCG/ACT 04/12/2020 12:00:00 AM EST 2.0 {sprays_in_each_nostril} active Mometasone Furoate 50 MCG/ACT eCW1 ([facility]) mesalamine 1000 MG Rectal Suppository Mesalamine 1000 MG Mes alamine 1000 MG 04/12/2020 12:00:00 AM EST 1.0 {suppository_at_bedtime} active Mesalamine 1000 MG eCW1 ([facility]) mesalamine 1000 MG Rectal Suppository Mesalamine 1000 MG Mes alamine 1000 MG 04/12/2020 12:00:00 AM EST 1.0 {suppository_at_bedtime} active Mesalamine 1000 MG eCW1 ([facility]) mesalamine 1000 MG Rectal Suppository Mesalamine 1000 MG Mes alamine 1000 MG 04/12/2020 12:00:00 AM EST 1.0 {suppository_at_bedtime} active Mesalamine 1000 MG eCW1 ([facility]) Mometasone Furoate 50 MCG/ACT Mometasone Furoate 50 MCG/ACT 04/12/2020 12:00:00 AM EST 2.0 {sprays_in_each_nostril} active Mometasone Furoate 50 MCG/ACT eCW1 ([facility]) Doxycycline Monohydrate 100 MG Oral Capsule Doxycycline [place] hydrate 100 MG 04/12/2020 12:00:00 AM EST 1.0 {capsule} suspend ed Doxycycline Monohydrate 100 MG eCW1 ([facility]) Mometasone Furoate 50 MCG/ACT Mometasone Furoate 50 MCG/ACT 04/12/2020 12:00:00 AM EST 2.0 {sprays_in_each_nostril} active Mometasone Furoate 50 MCG/ACT eCW1 ([facility]) Mometasone Furoate 50 MCG/ACT Mometasone Furoate 50 MCG/ACT 04/12/2020 12:00:00 AM EST 2.0 {sprays_in_each_nostril} active Mometasone Furoate 50 MCG/ACT eCW1 ([facility]) mesalamine 1000 MG Rectal Suppository Mesalamine 1000 MG Mes alamine 1000 MG 04/12/2020 12:00:00 AM EST 1.0 {suppository_at_bedtime} active Mesalamine 1000 MG eCW1 ([facility]) Doxycycline Monohydrate 100 MG Oral Capsule Doxycycline [place] hydrate 100 MG 04/12/2020 12:00:00 AM EST 1.0 {capsule} active Doxycycline Monohydrate 100 MG eCW1 ([facility]) Doxycycline Monohydrate 100 MG Oral Capsule Doxycycline [place] hydrate 100 MG 04/12/2020 12:00:00 AM EST 1.0 {capsule} suspend ed Doxycycline Monohydrate 100 MG eCW1 ([facility]) Mometasone Furoate 50 MCG/ACT Mometasone Furoate 50 MCG/ACT 04/12/2020 12:00:00 AM EST 2.0 {sprays_in_each_nostril} active Mometasone Furoate 50 MCG/ACT eCW1 ([facility]) Doxycycline Monohydrate 100 MG Oral Capsule Doxycycline [place] hydrate 100 MG 04/12/2020 12:00:00 AM EST 1.0 {capsule} active Doxycycline Monohydrate 100 MG eCW1 ([facility]) Doxycycline Monohydrate 100 MG Oral Capsule Doxycycline [place] hydrate 100 MG 04/12/2020 12:00:00 AM EST 1.0 {capsule} active Doxycycline Monohydrate 100 MG eCW1 ([facility]) 1,000 mg 04/12/2020 12:00:00 AM EST suppository 30 INSERT ONE SUPPOSITORY RECTALLY AT BEDTIME INSERT ONE SUPPOSITORY RECTALLY AT BEDTIME SOLD: 04/12/2020 [facility] mesalamine 1000 MG Rectal Suppository Mesalamine 1000 MG Mes alamine 1000 MG 04/12/2020 12:00:00 AM EST 1.0 {suppository_at_bedtime} active Mesalamine 1000 MG eCW1 ([facility]) 4 mg/2 mL 04/10/2020 12:00:00 AM EST [...] TIMES A DAY UNTIL HEALED SOLD: 03/26/2020 [facility] 100,000 unit/gram 03/25/2020 12:00:00 AM EST [...] Oral Tablet JUAN DANIEL (Jhony Lowery MD [facility]) Nystatin 15 MG Oral Tablet Nystatin 15 MG Oral Tablet 2019 12:00:00 AM EST 1 active Nystatin JUAN DANIEL (Jhony Lowery MD [facility]) Ondansetron 2 MG/ML Injectable Solution Ondansetron HCl 40 MG/20ML Injection Solution Ondansetron HCl 40 MG/20ML Injection Solution 03/21/20 12:00:00 AM EST 1 active ondansetron 2 MG/ ML Injectable Solution JUAN DANIEL (Jhony Lowery MD [facility]) ammonium lactate 120 MG/ML Topical Cream Ammonium Lact ate 12% External Cream Ammonium Lactate 12% External Cream 03/21/2020 12:00:00 AM EST active ammonium lactate 120 MG/ML Topical Cream JUAN DANIEL (Jhony Lowery MD [facility]) Lactulose 667 MG/ML Oral Solution Lactulose 10 GM/15ML Oral Solution Lactulose 10 GM/15ML Oral Solution 03/21/2020 12:00:00 AM EST 1 active lactulose 667 MG/ML Oral Solution JUAN DANIEL (Jhony Lowery MD [facility]) Amitriptyline Hydrochloride 50 MG Oral T ablet Amitriptyline HCl 50 MG Oral Tablet Amitriptyline HCl 50 MG Oral Tablet 03/21/2020 12:00:00 AM EST 1 active amitriptyline hydrochloride 50 M G Oral Tablet JUAN DANIEL (Jhony Lowery MD [facility]) Amitriptyline Hydrochloride 50 MG Oral T ablet Amitriptyline HCl 50 MG Oral Tablet Amitriptyline HCl 50 MG Oral Tablet 03/21/2020 12:00:00 AM EST 1 active amitriptyline hydrochloride 50 M G Oral Tablet JUAN DANIEL (Jhony Lowery MD [facility]) insulin detemir 100 UNT/ML Injectable So lution Insulin Detemir 100 UNIT/ML Subcutaneous Solution Insulin Detemir 100 UNIT/ML Subcutaneous Solution 03/21/2020 12:00:00 AM EST 1 active insulin detemir 100 UNT/ML Injectable Solution JUAN DANIEL (Jhony Lowery MD [facility]) Simethicone 80 MG Oral Tablet Simethicone 80 MG Oral Tablet 03/21/2020 12:00:00 AM EST [address] (Jhony Lowery MD [facility]) Albuterol 0.83 MG/ML Inhalant Solution A lbuterol Sulfate (2.5 MG/3ML) 0.083% Inhalation Nebulization solution Albuterol Sulfate (2.5 MG/3ML) 0.083% Inhalation Nebulization solution 03/21/2020 12:00:00 AM EST 1 active albuterol 0.83 MG/ML Inhalation Solution GARY (Brad Lowery MD [facility]) Cholecalciferol 1000 UNT Oral Capsule Ch olecalciferol 25 MCG (1000 UT) Oral Capsule Cholecalciferol 25 MCG (1000 UT) Oral Capsule 03/21/20 12:00:00 AM EST 1 active cholecalciferol 0 .025 MG Oral Capsule GARY (Jhony Lowery MD [facility]) Metoclopramide 10 MG Oral Tablet Metoclopramide HCl 10 MG Oral Tablet Metoclopramide HCl 10 MG Oral Tablet 03/21/2020 12:00:00 AM EST 1 active metoclopramide 10 MG Oral Tablet GARY (Jhony Lowery MD [facility]) Triamcinolone Acetonide 1 MG/ML Topical Cream Triamcinolone Acetonide 0.1% External Cream Triamcinolone Acetonide 0.1% External Cream 03/21/2020 12:00:00 AM EST 1 active triamcinolone jennifer tonide 1 MG/ML Topical Cream GARY (Jhony Lowery MD [facility]) Mupirocin 0.02 MG/MG Topical Ointment Mupirocin 2% Ext ernal Ointment Mupirocin 2% External Ointment 03/21/2020 12:00:00 AM EST 1 active mupirocin 0.02 MG/MG Topical Ointment GARY (Jhony Lowery MD [facility]) doxycycline hyclate 100 MG Oral Tablet Doxycycline Hyc late 100 MG Doxycycline Hyclate 100 MG 03/20/2020 12:00:00 AM EST 1.0 {tablet} suspended Doxycycline Hyclate 100 MG eCW1 ([facility]) doxycycline hyclate 100 MG Oral Tablet Doxycycline Hyc late 100 MG Doxycycline Hyclate 100 MG 03/20/2020 12:00:00 AM EST 1.0 {tablet} suspended Doxycycline Hyclate 100 MG eCW1 ([facility]) doxycycline hyclate 100 MG Oral Tablet Doxycycline Hyc late 100 MG Doxycycline Hyclate 100 MG 03/20/2020 12:00:00 AM EST 1.0 {tablet} suspended Doxycycline Hyclate 100 MG eCW1 ([facility]) doxycycline hyclate 100 MG Oral Tablet Doxycycline Hyc late 100 MG Doxycycline Hyclate 100 MG 03/20/2020 12:00:00 AM EST 1.0 {tablet} suspended Doxycycline Hyclate 100 MG eCW1 ([facility]) doxycycline hyclate 100 MG Oral Tablet Doxycycline Hyc late 100 MG Doxycycline Hyclate 100 MG 03/20/2020 12:00:00 AM EST 1.0 {tablet} suspended Doxycycline Hyclate 100 MG eCW1 ([facility]) doxycycline hyclate 100 MG Oral Tablet Doxycycline Hyc late 100 MG Doxycycline Hyclate 100 MG 03/20/2020 12:00:00 AM EST 1.0 {tablet} active Doxycycline Hyclate 100 MG eCW1 ([facility]) doxycycline hyclate 100 MG Oral Tablet Doxycycline Hyc late 100 MG Doxycycline Hyclate 100 MG 03/20/2020 12:00:00 AM EST 1.0 {tablet} active Doxycycline Hyclate 100 MG eCW1 ([facility]) doxycycline hyclate 100 MG Oral Tablet Doxycycline Hyc late 100 MG Doxycycline Hyclate 100 MG 03/20/2020 12:00:00 AM EST 1.0 {tablet} suspended Doxycycline Hyclate 100 MG eCW1 ([facility]) doxycycline hyclate 100 MG Oral Tablet Doxycycline Hyc late 100 MG Doxycycline Hyclate 100 MG 03/20/2020 12:00:00 AM EST 1.0 {tablet} suspended Doxycycline Hyclate 100 MG eCW1 ([facility]) doxycycline hyclate 100 MG Oral Tablet Doxycycline Hyc late 100 MG Doxycycline Hyclate 100 MG 03/20/2020 12:00:00 AM EST 1.0 {tablet} suspended Doxycycline Hyclate 100 MG eCW1 ([facility]) doxycycline hyclate 100 MG Oral Tablet Doxycycline Hyc late 100 MG Doxycycline Hyclate 100 MG 03/20/2020 12:00:00 AM EST 1.0 {tablet} active Doxycycline Hyclate 100 MG eCW1 ([facility]) doxycycline hyclate 100 MG Oral Tablet Doxycycline Hyc late 100 MG Doxycycline Hyclate 100 MG 03/20/2020 12:00:00 AM EST 1.0 {tablet} active Doxycycline Hyclate 100 MG eCW1 ([facility]) doxycycline hyclate 100 MG Oral Tablet Doxycycline Hyc late 100 MG Doxycycline Hyclate 100 MG 03/20/2020 12:00:00 AM EST 1.0 {tablet} active Doxycycline Hyclate 100 MG eCW1 ([facility]) doxycycline hyclate 100 MG Oral Tablet Doxycycline Hyc late 100 MG Doxycycline Hyclate 100 MG 03/20/2020 12:00:00 AM EST 1.0 {tablet} suspended Doxycycline Hyclate 100 MG eCW1 ([facility]) doxycycline hyclate 100 MG Oral Tablet DOXYCYCLINE [...] {tablet} active Doxycycline Hyclate 100 MG eCW1 ([facility]) doxycycline hyclate 100 MG Oral Tablet Doxycycline Hyc late 100 MG Doxycycline Hyclate 100 MG 03/20/2020 12:00:00 AM EST 1.0 {tablet} suspended Doxycycline Hyclate 100 MG eCW1 ([facility]) doxycycline hyclate 100 MG Oral Tablet Doxycycline Hyc late 100 MG Doxycycline Hyclate 100 MG 03/20/2020 12:00:00 AM EST 1.0 {tablet} suspended Doxycycline Hyclate 100 MG eCW1 ([facility]) doxycycline hyclate 100 MG Oral Tablet Doxycycline Hyc late 100 MG Doxycycline Hyclate 100 MG 03/20/2020 12:00:00 AM EST 1.0 {tablet} active Doxycycline Hyclate 100 MG eCW1 ([facility]) doxycycline hyclate 100 MG Oral Tablet Doxycycline Hyc late 100 MG Doxycycline Hyclate 100 MG 03/20/2020 12:00:00 AM EST 1.0 {tablet} suspended Doxycycline Hyclate 100 MG eCW1 ([facility]) doxycycline hyclate 100 MG Oral Tablet Doxycycline Hyc late 100 MG Doxycycline Hyclate 100 MG 03/20/2020 12:00:00 AM EST 1.0 {tablet} suspended Doxycycline Hyclate 100 MG eCW1 ([facility]) doxycycline hyclate 100 MG Oral Tablet Doxycycline Hyc late 100 MG Doxycycline Hyclate 100 MG 03/20/2020 12:00:00 AM EST 1.0 {tablet} suspended Doxycycline Hyclate 100 MG eCW1 ([facility]) doxycycline hyclate 100 MG Oral Tablet Doxycycline Hyc late 100 MG Doxycycline Hyclate 100 MG 03/20/2020 12:00:00 AM EST 1.0 {tablet} suspended Doxycycline Hyclate 100 MG eCW1 ([facility]) doxycycline hyclate 100 MG Oral Tablet Doxycycline Hyc late 100 MG Doxycycline Hyclate 100 MG 03/20/2020 12:00:00 AM EST 1.0 {tablet} active Doxycycline Hyclate 100 MG eCW1 ([facility]) doxycycline hyclate 100 MG Oral Tablet Doxycycline Hyc late 100 MG Doxycycline Hyclate 100 MG 03/20/2020 12:00:00 AM EST 1.0 {tablet} active Doxycycline Hyclate 100 MG eCW1 ([facility]) doxycycline hyclate 100 MG Oral Tablet Doxycycline Hyc late 100 MG Doxycycline Hyclate 100 MG 03/20/2020 12:00:00 AM EST 1.0 {tablet} suspended Doxycycline Hyclate 100 MG eCW1 ([facility]) doxycycline hyclate 100 MG Oral Tablet Doxycycline Hyc late 100 MG Doxycycline Hyclate 100 MG 03/20/2020 12:00:00 AM EST 1.0 {tablet} suspended Doxycycline Hyclate 100 MG eCW1 ([facility]) doxycycline hyclate 100 MG Oral Tablet Doxycycline Hyc late 100 MG Doxycycline Hyclate 100 MG 03/20/2020 12:00:00 AM EST 1.0 {tablet} suspended Doxycycline Hyclate 100 MG eCW1 ([facility]) doxycycline hyclate 100 MG Oral Tablet Doxycycline Hyc late 100 MG Doxycycline Hyclate 100 MG 03/20/2020 12:00:00 AM EST 1.0 {tablet} suspended Doxycycline Hyclate 100 MG eCW1 ([facility]) doxycycline hyclate 100 MG Oral Tablet Doxycycline Hyc late 100 MG Doxycycline Hyclate 100 MG 03/20/2020 12:00:00 AM EST 1.0 {tablet} suspended Doxycycline Hyclate 100 MG eCW1 ([facility]) 3 ML liraglutide 6 MG/ML Pen Injector [Victoza] Victoz a 18 MG/3ML Victoza 18 MG/3ML 03/17/2020 12:00:00 AM EST active Victoza 18 MG/3ML eCW1 ([facility]) Sodium Chloride 0.9 % UNK 03/17/2020 12:00:00 AM EST active Sodium Chloride 0.9 % eCW1 ([facility]ly [facility]) 3 ML liraglutide 6 MG/ML Pen Injector [Victoza] Victoz a 18 MG/3ML Victoza 18 MG/3ML 03/17/2020 12:00:00 AM EST active Victoza 18 MG/3ML eCW1 ([facility]) Sodium Chloride 0.9 % UNK 03/17/2020 12:00:00 AM EST active Sodium Chloride 0.9 % eCW1 ([facility]) Sodium Chloride 0.9 % UNK 03/17/2020 12:00:00 AM EST active Sodium Chloride 0.9 % eCW1 ([facility]) Sodium Chloride 0.9 % UNK 03/17/2020 12:00:00 AM EST active Sodium Chloride 0.9 % eCW1 ([facility]) ciclopirox 80 MG/ML Topical Solution Ciclopirox 8 % Ciclopir ox 8 % 03/17/2020 12:00:00 AM EST active Ciclopir ox 8 % eCW1 ([facility]) 3 ML liraglutide 6 MG/ML Pen Injector [Victoza] Victoz a 18 MG/3ML Victoza 18 MG/3ML 03/17/2020 12:00:00 AM EST active Victoza 18 MG/3ML eCW1 ([facility]) Sodium Chloride 0.9 % UNK 03/17/2020 12:00:00 AM EST active Sodium Chloride 0.9 % eCW1 ([facility]) 3 ML liraglutide 6 MG/ML Pen Injector [Victoza] Victoz a 18 MG/3ML Victoza 18 MG/3ML 03/17/2020 12:00:00 AM EST active Victoza 18 MG/3ML eCW1 ([facility]) ciclopirox 80 MG/ML Topical Solution Ciclopirox 8 % Ciclopir ox 8 % 03/17/2020 12:00:00 AM EST active Ciclopir ox 8 % eCW1 ([facility]) ciclopirox 80 MG/ML Topical Solution Ciclopirox 8 % Ciclopir ox 8 % 03/17/2020 12:00:00 AM EST active Ciclopir ox 8 % eCW1 ([facility]) 3 ML liraglutide 6 MG/ML Pen Injector [Victoza] Victoz a 18 MG/3ML Victoza 18 MG/3ML 03/17/2020 12:00:00 AM EST active Victoza 18 MG/3ML eCW1 ([facility]) Sodium Chloride 0.9 % UNK 03/17/2020 12:00:00 AM EST active Sodium Chloride 0.9 % eCW1 ([facility]) Sodium Chloride 0.9 % UNK 03/17/2020 12:00:00 AM EST active Sodium Chloride 0.9 % eCW1 ([facility]) ciclopirox 80 MG/ML Topical Solution Ciclopirox 8 % Ciclopir ox 8 % 03/17/2020 12:00:00 AM EST active Ciclopir ox 8 % eCW1 ([facility]) ciclopirox 80 MG/ML Topical Solution Ciclopirox 8 % Ciclopir ox 8 % 03/17/2020 12:00:00 AM EST active Ciclopir ox 8 % eCW1 ([facility]) 3 ML liraglutide 6 MG/ML Pen Injector [Victoza] Victoz a 18 MG/3ML Victoza 18 MG/3ML 03/17/2020 12:00:00 AM EST active Victoza 18 MG/3ML eCW1 ([facility]) 3 ML liraglutide 6 MG/ML Pen Injector [Victoza] Victoz a 18 MG/3ML Victoza 18 MG/3ML 03/17/2020 12:00:00 AM EST active Victoza 18 MG/3ML eCW1 ([facility]) 0.6 mg/0.1 mL (18 mg/3 mL) 03/17/2020 12:00:00 AM EST pen in jector 6 INJECT 0.6MG UNDER THE SKIN DAILY FOR 1 WEEK THEN INCREASE TO 1.2MG DAILY INJECT 0.6MG UNDER THE SKIN DAILY FOR 1 WEEK THEN INCREASE TO 1.2MG DAILY SOLD: 04/09/2020 [facility] ciclopirox 80 MG/ML Topical Solution Ciclopirox 8 % Ciclopir ox 8 % 03/17/2020 12:00:00 AM EST active Ciclopir ox 8 % eCW1 ([facility]) 0.6 mg/0.1 mL (18 mg/3 mL) 03/17/2020 12:00:00 AM EST pen in jector 6 INJECT 0.6MG UNDER THE SKIN DAILY FOR 1 WEEK THEN INCREASE TO 1.2MG DAILY INJECT 0.6MG UNDER THE SKIN DAILY FOR 1 WEEK THEN INCREASE TO 1.2MG DAILY SOLD: 03/17/2020 [facility] Sodium Chloride 0.9 % UNK 03/17/2020 12:00:00 AM EST active Sodium Chloride 0.9 % eCW1 ([facility]) ciclopirox 80 MG/ML Topical Solution Ciclopirox 8 % Ciclopir ox 8 % 03/17/2020 12:00:00 AM EST active Ciclopir ox 8 % eCW1 ([facility]) ciclopirox 80 MG/ML Topical Solution Ciclopirox 8 % Ciclopir ox 8 % 03/17/2020 12:00:00 AM EST active Ciclopir ox 8 % eCW1 ([facility]) 3 ML liraglutide 6 MG/ML Pen Injector [Victoza] Victoz a 18 MG/3ML Victoza 18 MG/3ML 03/17/2020 12:00:00 AM EST active Victoza 18 MG/3ML eCW1 ([facility]) 3 ML liraglutide 6 MG/ML Pen Injector [Victoza] Victoz a 18 MG/3ML Victoza 18 MG/3ML 03/17/2020 12:00:00 AM EST active Victoza 18 MG/3ML eCW1 ([facility]) ciclopirox 80 MG/ML Topical Solution Ciclopirox 8 % Ciclopir ox 8 % 03/17/2020 12:00:00 AM EST active Ciclopir ox 8 % eCW1 (Formerly [facility]) Sodium Chloride 0.9 % UNK 03/17/2020 12:00:00 AM EST active Sodium Chloride 0.9 % eCW1 (Formerly [facility]) Sodium Chloride 0.9 % UNK 03/17/2020 12:00:00 AM EST active Sodium Chloride 0.9 % eCW1 (Formerly [facility]) 3 ML liraglutide 6 MG/ML Pen Injector [Victoza] Victoz a 18 MG/3ML Victoza 18 MG/3ML 03/17/2020 12:00:00 AM EST active Victoza 18 MG/3ML eCW1 (Formerly [facility]) ciclopirox 80 MG/ML Topical Solution Ciclopirox 8 % Ciclopir ox 8 % 03/17/2020 12:00:00 AM EST active Ciclopir ox 8 % eCW1 ([facility]ly [facility]) ciclopirox 80 MG/ML Topical Solution Ciclopirox 8 % Ciclopir ox 8 % 03/17/2020 12:00:00 AM EST active Ciclopir ox 8 % eCW1 ([facility]ly [facility]) ciclopirox 80 MG/ML Topical Solution Ciclopirox 8 % Ciclopir ox 8 % 03/17/2020 12:00:00 AM EST active Ciclopir ox 8 % eCW1 ([facility]ly [facility]) Sodium Chloride 0.9 % UNK 03/17/2020 12:00:00 AM EST active Sodium Chloride 0.9 % eCW1 ([facility]) Sodium Chloride 0.9 % UNK 03/17/2020 12:00:00 AM EST active Sodium Chloride 0.9 % eCW1 ([facility]) ciclopirox 80 MG/ML Topical Solution Ciclopirox 8 % Ciclopir ox 8 % 03/17/2020 12:00:00 AM EST active Ciclopir ox 8 % eCW1 ([facility]) ciclopirox 80 MG/ML Topical Solution Ciclopirox 8 % Ciclopir ox 8 % 03/17/2020 12:00:00 AM EST active Ciclopir ox 8 % eCW1 ([facility]) 3 ML liraglutide 6 MG/ML Pen Injector [Victoza] Victoz a 18 MG/3ML Victoza 18 MG/3ML 03/17/2020 12:00:00 AM EST active Victoza 18 MG/3ML eCW1 ([facility]ly [facility]) 3 ML liraglutide 6 MG/ML Pen Injector [Victoza] Victoz a 18 MG/3ML Victoza 18 MG/3ML 03/17/2020 12:00:00 AM EST active Victoza 18 MG/3ML eCW1 ([facility]ly [facility]) 8 % 03/17/2020 12:00:00 AM EST solution [...] EST active Ciclopir ox 8 % eCW1 ([facility]) 3 ML liraglutide 6 MG/ML Pen Injector [Victoza] Victoz a 18 MG/3ML Victoza 18 MG/3ML 03/17/2020 12:00:00 AM EST active Victoza 18 MG/3ML eCW1 ([facility]) ciclopirox 80 MG/ML Topical Solution Ciclopirox 8 % Ciclopir ox 8 % 03/17/2020 12:00:00 AM EST active Ciclopir ox 8 % eCW1 ([facility]) ciclopirox 80 MG/ML Topical Solution Ciclopirox 8 % Ciclopir ox 8 % 03/17/2020 12:00:00 AM EST active Ciclopir ox 8 % eCW1 ([facility]) Sodium Chloride 0.9 % UNK 03/17/2020 12:00:00 AM EST active Sodium Chloride 0.9 % eCW1 ([facility]) 3 ML liraglutide 6 MG/ML Pen Injector [Victoza] Victoz a 18 MG/3ML Victoza 18 MG/3ML 03/17/2020 12:00:00 AM EST active Victoza 18 MG/3ML eCW1 ([facility]) 8 % 03/17/2020 12:00:00 AM EST solution 6 APPLY TO THE 5TH FINGERNAIL ONCE A DAY, CLEAN OFF WITH AN ALCOHOL PREP PAD ONCE A WEEK APPLY TO THE 5TH FINGERNAIL ONCE A DAY, CLEAN OFF WITH AN ALCOHOL PREP PAD ONCE A WEEK SOLD: 04/14/2020 [facility] Sodium Chloride 0.9 % UNK 03/17/2020 12:00:00 AM EST active Sodium Chloride 0.9 % eCW1 ([facility]ly [facility]) ciclopirox 80 MG/ML Topical Solution Ciclopirox 8 % Ciclopir ox 8 % 03/17/2020 12:00:00 AM EST active Ciclopir ox 8 % eCW1 ([facility]) 3 ML liraglutide 6 MG/ML Pen Injector [Victoza] Victoz a 18 MG/3ML Victoza 18 MG/3ML 03/17/2020 12:00:00 AM EST active Victoza 18 MG/3ML eCW1 ([facility]) 3 ML liraglutide 6 MG/ML Pen Injector [Victoza] Victoz a 18 MG/3ML Victoza 18 MG/3ML 03/17/2020 12:00:00 AM EST active Victoza 18 MG/3ML eCW1 ([facility]) Sodium Chloride 0.9 % UNK 03/17/2020 12:00:00 AM EST active Sodium Chloride 0.9 % eCW1 ([facility]) ciclopirox 80 MG/ML Topical Solution Ciclopirox 8 % Ciclopir ox 8 % 03/17/2020 12:00:00 AM EST active Ciclopir ox 8 % eCW1 ([facility]) Sodium Chloride 0.9 % UNK 03/17/2020 12:00:00 AM EST active Sodium Chloride 0.9 % eCW1 ([facility]) 3 ML liraglutide 6 MG/ML Pen Injector [Victoza] Victoz a 18 MG/3ML Victoza 18 MG/3ML 03/17/2020 12:00:00 AM EST active Victoza 18 MG/3ML eCW1 ([facility]) ciclopirox 80 MG/ML Topical Solution Ciclopirox 8 % Ciclopir ox 8 % 03/17/2020 12:00:00 AM EST active Ciclopir ox 8 % eCW1 ([facility]) Sodium Chloride 0.9 % UNK 03/17/2020 12:00:00 AM EST active Sodium Chloride 0.9 % eCW1 ([facility]) 3 ML liraglutide 6 MG/ML Pen Injector [Victoza] Victoz a 18 MG/3ML Victoza 18 MG/3ML 03/17/2020 12:00:00 AM EST active Victoza 18 MG/3ML eCW1 ([facility]) 3 ML liraglutide 6 MG/ML Pen Injector [Victoza] Victoz a 18 MG/3ML Victoza 18 MG/3ML 03/17/2020 12:00:00 AM EST active Victoza 18 MG/3ML eCW1 ([facility]) 3 ML liraglutide 6 MG/ML Pen Injector [Victoza] Victoz a 18 MG/3ML Victoza 18 MG/3ML 03/17/2020 12:00:00 AM EST active Victoza 18 MG/3ML eCW1 ([facility]) Sodium Chloride 0.9 % UNK 03/17/2020 12:00:00 AM EST active Sodium Chloride 0.9 % eCW1 ([facility]) ciclopirox 80 MG/ML Topical Solution Ciclopirox 8 % Ciclopir ox 8 % 03/17/2020 12:00:00 AM EST active Ciclopir ox 8 % eCW1 ([facility]) 3 ML liraglutide 6 MG/ML Pen Injector [Victoza] Victoz a 18 MG/3ML Victoza 18 MG/3ML 03/17/2020 12:00:00 AM EST active Victoza 18 MG/3ML eCW1 ([facility]) 3 ML liraglutide 6 MG/ML Pen Injector [Victoza] Victoz a 18 MG/3ML Victoza 18 MG/3ML 03/17/2020 12:00:00 AM EST active Victoza 18 MG/3ML eCW1 ([facility]) Sodium Chloride 0.9 % UNK 03/17/2020 12:00:00 AM EST active Sodium Chloride 0.9 % eCW1 ([facility]) ciclopirox 80 MG/ML Topical Solution Ciclopirox 8 % Ciclopir ox 8 % 03/17/2020 12:00:00 AM EST active Ciclopir ox 8 % eCW1 ([facility]) 3 ML liraglutide 6 MG/ML Pen Injector [Victoza] Victoz a 18 MG/3ML Victoza 18 MG/3ML 03/17/2020 12:00:00 AM EST active Victoza 18 MG/3ML eCW1 ([facility]) Sodium Chloride 0.9 % UNK 03/17/2020 12:00:00 AM EST active Sodium Chloride 0.9 % eCW1 ([facility]) 3 ML liraglutide 6 MG/ML Pen Injector [Victoza] Victoz a 18 MG/3ML Victoza 18 MG/3ML 03/17/2020 12:00:00 AM EST active Victoza 18 MG/3ML eCW1 ([facility]) 3 ML liraglutide 6 MG/ML Pen Injector [Victoza] Victoz a 18 MG/3ML Victoza 18 MG/3ML 03/17/2020 12:00:00 AM EST active Victoza 18 MG/3ML eCW1 ([facility]) 3 ML liraglutide 6 MG/ML Pen Injector [Victoza] Victoz a 18 MG/3ML Victoza 18 MG/3ML 03/17/2020 12:00:00 AM EST active Victoza 18 MG/3ML eCW1 ([facility]) ciclopirox 80 MG/ML Topical Solution Ciclopirox 8 % Ciclopir ox 8 % 03/17/2020 12:00:00 AM EST active Ciclopir ox 8 % eCW1 ([facility]) ciclopirox 80 MG/ML Topical Solution Ciclopirox 8 % Ciclopir ox 8 % 03/17/2020 12:00:00 AM EST active Ciclopir ox 8 % eCW1 ([facility]) Sodium Chloride 0.9 % UNK 03/17/2020 12:00:00 AM EST active Sodium Chloride 0.9 % eCW1 ([facility]) Sodium Chloride 0.9 % UNK 03/17/2020 12:00:00 AM EST active Sodium Chloride 0.9 % eCW1 ([facility]) Sodium Chloride 0.9 % UNK 03/17/2020 12:00:00 AM EST active Sodium Chloride 0.9 % eCW1 ([facility]) Sodium Chloride 0.9 % UNK 03/17/2020 12:00:00 AM EST active Sodium Chloride 0.9 % eCW1 ([facility]) 3 ML liraglutide 6 MG/ML Pen Injector [Victoza] Victoz a 18 MG/3ML Victoza 18 MG/3ML 03/17/2020 12:00:00 AM EST active Victoza 18 MG/3ML eCW1 ([facility]) 3 ML liraglutide 6 MG/ML Pen Injector [Victoza] Victoz a 18 MG/3ML Victoza 18 MG/3ML 03/17/2020 12:00:00 AM EST active Victoza 18 MG/3ML eCW1 ([facility]) ciclopirox 80 MG/ML Topical Solution Ciclopirox 8 % Ciclopir ox 8 % 03/17/2020 12:00:00 AM EST active Ciclopir ox 8 % eCW1 ([facility]) 3 ML liraglutide 6 MG/ML Pen Injector [Victoza] Victoz a 18 MG/3ML Victoza 18 MG/3ML 03/17/2020 12:00:00 AM EST active Victoza 18 MG/3ML eCW1 ([facility]) Sodium Chloride 0.9 % UNK 03/17/2020 12:00:00 AM EST active Sodium Chloride 0.9 % eCW1 ([facility]) ciclopirox 80 MG/ML Topical Solution Ciclopirox 8 % Ciclopir ox 8 % 03/17/2020 12:00:00 AM EST active Ciclopir ox 8 % eCW1 ([facility]) ciclopirox 80 MG/ML Topical Solution Ciclopirox 8 % Ciclopir ox 8 % 03/17/2020 12:00:00 AM EST active Ciclopir ox 8 % eCW1 ([facility]) 3 ML liraglutide 6 MG/ML Pen Injector [Victoza] Victoz a 18 MG/3ML Victoza 18 MG/3ML 03/17/2020 12:00:00 AM EST active Victoza 18 MG/3ML eCW1 ([facility]) Sodium Chloride 0.9 % UNK 03/17/2020 12:00:00 AM EST active Sodium Chloride 0.9 % eCW1 ([facility]) Sodium Chloride 0.9 % UNK 03/17/2020 12:00:00 AM EST active Sodium Chloride 0.9 % eCW1 ([facility]) ciclopirox 80 MG/ML Topical Solution Ciclopirox 8 % Ciclopir ox 8 % 03/17/2020 12:00:00 AM EST active Ciclopir ox 8 % eCW1 ([facility]) ciclopirox 80 MG/ML Topical Solution Ciclopirox 8 % Ciclopir ox 8 % 03/17/2020 12:00:00 AM EST active Ciclopir ox 8 % eCW1 ([facility]) Sodium Chloride 0.9 % UNK 03/17/2020 12:00:00 AM EST active Sodium Chloride 0.9 % eCW1 ([facility]) 3 ML liraglutide 6 MG/ML Pen Injector [Victoza] Victoz a 18 MG/3ML Victoza 18 MG/3ML 03/17/2020 12:00:00 AM EST active Victoza 18 MG/3ML eCW1 ([facility]) Sodium Chloride 0.9 % UNK 03/17/2020 12:00:00 AM EST active Sodium Chloride 0.9 % eCW1 ([facility]) Sodium Chloride 0.9 % UNK 03/17/2020 12:00:00 AM EST active Sodium Chloride 0.9 % eCW1 ([facility]) ciclopirox 80 MG/ML Topical Solution Ciclopirox 8 % Ciclopir ox 8 % 03/17/2020 12:00:00 AM EST active Ciclopir ox 8 % eCW1 ([facility]) 3 ML liraglutide 6 MG/ML Pen Injector [Victoza] Victoz a 18 MG/3ML Victoza 18 MG/3ML 03/17/2020 12:00:00 AM EST active Victoza 18 MG/3ML eCW1 ([facility]) Sodium Chloride 0.9 % UNK 03/17/2020 12:00:00 AM EST active Sodium Chloride 0.9 % eCW1 ([facility]) ciclopirox 80 MG/ML Topical Solution Ciclopirox 8 % Ciclopir ox 8 % 03/17/2020 12:00:00 AM EST active Ciclopir ox 8 % eCW1 ([facility]) ciclopirox 80 MG/ML Topical Solution Ciclopirox 8 % Ciclopir ox 8 % 03/17/2020 12:00:00 AM EST active Ciclopir ox 8 % eCW1 ([facility]) Sodium Chloride 0.9 % UNK 03/17/2020 12:00:00 AM EST active Sodium Chloride 0.9 % eCW1 ([facility]) 31 gauge x 5/16" 03/03/2020 12:00:00 AM [...] 02/17/2020 12:00:00 AM EST RECTAL active MEDENT ([facility], ) 50 mg 02/17/2020 12:00:00 AM [...] GRAM VAGINALLY EVERY 72 HOURS SOLD: 0 [facility] 0.01 % (0.1 mg/gram) 02/04/2020 12:00:00 AM EDT cream 42 INSERT 1 GRAM VAGINALLY EVERY 72 HOURS INSERT 1 GRAM VAGINALLY EVERY 72 HOURS SOLD: 0 [facility] Doxycycline Monohydrate 100 MG Oral Tablet Doxycycline Monoh ydrate 100 MG 01/24/2020 12:00:00 AM EDT 1.0 {tablet} suspende d Doxycycline Monohydrate 100 MG eCW1 ([facility]) Doxycycline Monohydrate 100 MG Oral Tablet Doxycycline Monoh ydrate 100 MG 01/24/2020 12:00:00 AM EDT 1.0 {tablet} suspende d Doxycycline Monohydrate 100 MG eCW1 ([facility]) 100 mg 01/24/2020 12:00:00 AM EDT tablet 10 TAKE ONE TABLET BY MOUTH TWICE A DAY FOR 5 DAYS TAKE ONE TABLET BY MOUTH TWICE A DAY FOR 5 DAYS SOLD: 01/24/2020 [email or web address] Doxycycline Monohydrate 100 MG Oral Tablet Doxycycline Monoh ydrate 100 MG 01/24/2020 12:00:00 AM EDT 1.0 {tablet} suspende d Doxycycline Monohydrate 100 MG eCW1 ([facility]) Doxycycline Monohydrate 100 MG Oral Tablet Doxycycline Monoh ydrate 100 MG 01/24/2020 12:00:00 AM EDT 1.0 {tablet} active Doxycycline Monohydrate 100 MG eCW1 ([facility]) Doxycycline Monohydrate 100 MG Oral Tablet Doxycycline Monoh ydrate 100 MG 01/24/2020 12:00:00 AM EDT 1.0 {tablet} suspende d Doxycycline Monohydrate 100 MG eCW1 ([facility]) Doxycycline Monohydrate 100 MG Oral Tablet Doxycycline Monoh ydrate 100 MG 01/24/2020 12:00:00 AM EDT 1.0 {tablet} suspende d Doxycycline Monohydrate 100 MG eCW1 ([facility]) Doxycycline Monohydrate 100 MG Oral Tablet Doxycycline Monoh ydrate 100 MG 01/24/2020 12:00:00 AM EDT 1.0 {tablet} active Doxycycline Monohydrate 100 MG eCW1 ([facility]) Doxycycline Monohydrate 100 MG Oral Tablet Doxycycline Monoh ydrate 100 MG 01/24/2020 12:00:00 AM EDT 1.0 {tablet} active Doxycycline Monohydrate 100 MG eCW1 ([facility]) Doxycycline Monohydrate 100 MG Oral Tablet Doxycycline Monoh ydrate 100 MG 01/24/2020 12:00:00 AM EDT 1.0 {tablet} suspende d Doxycycline Monohydrate 100 MG eCW1 ([facility]) Doxycycline Monohydrate 100 MG Oral Tablet Doxycycline Monoh ydrate 100 MG 01/24/2020 12:00:00 AM EDT 1.0 {tablet} suspende d Doxycycline Monohydrate 100 MG eCW1 ([facility]) Doxycycline Monohydrate 100 MG Oral Tablet Doxycycline Monoh ydrate 100 MG 01/24/2020 12:00:00 AM EDT 1.0 {tablet} active Doxycycline Monohydrate 100 MG eCW1 ([facility]) 4 mg/2 mL 01/19/2020 12:00:00 AM EDT solution 120 1 VIAL TWO TIMES A DAY AT LEAST 8 HOURS APART DIRECTED 1 VIAL TWO TIMES A DAY AT LEAST 8 HOURS APART DIRECTED SOLD: 01/19/2020 [facility] 4 mg/2 mL 01/19/2020 12:00:00 AM EDT solution 120 1 VIAL TWO TIMES A DAY AT LEAST 8 HOURS APART DIRECTED 1 VIAL TWO TIMES A DAY AT LEAST 8 HOURS APART DIRECTED SOLD: 03/14/2020 [facility] mesalamine 1000 MG Rectal Suppository Mesalamine 01/05/2020 12:00:00 AM EDT active MEDENT ([facility]) 4 mg 12/25/2019 12:00:00 AM [...] TWO TIMES A DAY NEEDED SOLD: 12/01/2019 [facility] 4 mg 11/30/2019 12:00:00 AM [...] EDT active Hydromorphone HCl 4 MG eCW1 ([facility]) Hydromorphone Hydrochloride 4 MG Oral Tablet Hy[facility]romorp nellie HCl 4 MG Hydromorphone HCl 4 MG 10/21/2019 12:00:00 AM EDT suspended Hydromorphone HCl 4 MG eCW1 ([facility]) Hydromorphone Hydrochloride 4 MG Oral Tablet [facility]rom[facility] nellie HCl 4 MG Hydromorphone HCl 4 MG 10/21/2019 12:00:00 AM EDT active Hydromorphone HCl 4 MG eCW1 ([facility]) Hydromorphone Hydrochloride 4 MG Oral Tablet [facility] nellie HCl 4 MG Hydromorphone HCl 4 MG 10/21/2019 12:00:00 AM EDT active Hydromorphone HCl 4 MG eCW1 ([facility]) Hydromorphone Hydrochloride 4 MG Oral Tablet [facility]ellie HCl 4 MG Hydromorphone HCl 4 MG 10/21/2019 12:00:00 AM EDT suspended Hydromorphone HCl 4 MG eCW1 ([facility]) Hydromorphone Hydrochloride 4 MG Oral Tablet [facility] nellie HCl 4 MG Hydromorphone HCl 4 MG 10/21/2019 12:00:00 AM EDT active Hydromorphone HCl 4 MG eCW1 ([facility]) Hydromorphone Hydrochloride 4 MG Oral Tablet [facility] nellie HCl 4 MG Hydromorphone HCl 4 MG 10/21/2019 12:00:00 AM EDT active Hydromorphone HCl 4 MG eCW1 ([facility]) Hydromorphone Hydrochloride 4 MG Oral Tablet [facility]rom[facility] nellie HCl 4 MG Hydromorphone HCl 4 MG 10/21/2019 12:00:00 AM EDT suspended Hydromorphone HCl 4 MG eCW1 ([facility]) 4 mg 10/21/2019 12:00:00 AM EDT tablet [...] EDT active Hydromorphone HCl 4 MG eCW1 ([facility]) Hydromorphone Hydrochloride 4 MG Oral Tablet Hy[facility]romorp nellie HCl 4 MG Hydromorphone HCl 4 MG 10/21/2019 12:00:00 AM EDT active Hydromorphone HCl 4 MG eCW1 ([facility]) Hydromorphone Hydrochloride 4 MG Oral Tablet Hy[facility]romorp nellie HCl 4 MG Hydromorphone HCl 4 MG 10/21/2019 12:00:00 AM EDT active Hydromorphone HCl 4 MG eCW1 ([facility]) Hydromorphone Hydrochloride 4 MG Oral Tablet [facility]romorp nellie HCl 4 MG Hydromorphone HCl 4 MG 10/21/2019 12:00:00 AM EDT active Hydromorphone HCl 4 MG eCW1 ([facility]) Hydromorphone Hydrochloride 4 MG Oral Tablet [facility] nellie HCl 4 MG Hydromorphone HCl 4 MG 10/21/2019 12:00:00 AM EDT suspended Hydromorphone HCl 4 MG eCW1 ([facility]) Hydromorphone Hydrochloride 4 MG Oral Tablet Hy[facility]romorp nellie HCl 4 MG Hydromorphone HCl 4 MG 10/21/2019 12:00:00 AM EDT suspended Hydromorphone HCl 4 MG eCW1 ([facility]) Hydromorphone Hydrochloride 4 MG Oral Tablet Hydromorp nellie HCl 4 MG Hydromorphone HCl 4 MG 10/21/2019 12:00:00 AM EDT active Hydromorphone HCl 4 MG eCW1 ([facility]) Hydromorphone Hydrochloride 4 MG Oral Tablet Hydromorp nellie HCl 4 MG Hydromorphone HCl 4 MG 10/21/2019 12:00:00 AM EDT suspended Hydromorphone HCl 4 MG eCW1 ([facility]) Hydromorphone Hydrochloride 4 MG Oral Tablet Hydromorp nellie HCl 4 MG Hydromorphone HCl 4 MG 10/21/2019 12:00:00 AM EDT suspended Hydromorphone HCl 4 MG eCW1 ([facility]) Hydromorphone Hydrochloride 4 MG Oral Tablet Hydromorp nellie HCl 4 MG Hydromorphone HCl 4 MG 10/21/2019 12:00:00 AM EDT active Hydromorphone HCl 4 MG eCW1 ([facility]) Hydromorphone Hydrochloride 4 MG Oral Tablet Hy[facility]romorp nellie HCl 4 MG Hydromorphone HCl 4 MG 10/21/2019 12:00:00 AM EDT suspended Hydromorphone HCl 4 MG eCW1 ([facility]) Hydromorphone Hydrochloride 4 MG Oral Tablet Hydromorp nellie HCl 4 MG Hydromorphone HCl 4 MG 10/21/2019 12:00:00 AM EDT active Hydromorphone HCl 4 MG eCW1 ([facility]) Hydromorphone Hydrochloride 4 MG Oral Tablet [facility]romorp nellie HCl 4 MG Hydromorphone HCl 4 MG 10/21/2019 12:00:00 AM EDT suspended Hydromorphone HCl 4 MG eCW1 ([facility]) Hydromorphone Hydrochloride 4 MG Oral Tablet Hy[facility]romorp nellie HCl 4 MG Hydromorphone HCl 4 MG 10/21/2019 12:00:00 AM EDT active Hydromorphone HCl 4 MG eCW1 ([facility]) Estradiol 0.1 MG/ML Vaginal Cream Estradiol 0.1 MG/GM Estrad iol 0.1 MG/GM 10/15/2019 12:00:00 AM EDT active Estradiol 0.1 MG/GM eCW1 ([facility]) Estradiol 0.1 MG/ML Vaginal Cream Estradiol 0.1 MG/GM Estrad iol 0.1 MG/GM 10/15/2019 12:00:00 AM EDT active Estradiol 0.1 MG/GM eCW1 ([facility]) Estradiol 0.1 MG/ML Vaginal Cream Estradiol 0.1 MG/GM Estrad iol 0.1 MG/GM 10/15/2019 12:00:00 AM EDT active Estradiol 0.1 MG/GM eCW1 ([facility]) Estradiol 0.1 MG/ML Vaginal Cream Estradiol 0.1 MG/GM Estrad iol 0.1 MG/GM 10/15/2019 12:00:00 AM EDT active Estradiol 0.1 MG/GM eCW1 ([facility]) Estradiol 0.1 MG/ML Vaginal Cream Estradiol 0.1 MG/GM Estrad iol 0.1 MG/GM 10/15/2019 12:00:00 AM EDT active Estradiol 0.1 MG/GM eCW1 ([facility]) 12 % 10/15/2019 12:00:00 AM EDT cream 140 APPLY 1 APPLICATION TO FEET TWO TIMES A DAY EXTERNALLY APPLY 1 APPLICATION TO FEET TWO TIMES A DAY EXTERNALLY SOLD: 10/16/2019 [facility] Estradiol 0.1 MG/ML Vaginal Cream Estradiol 0.1 MG/GM Estrad iol 0.1 MG/GM 10/15/2019 12:00:00 AM EDT active Estradiol 0.1 MG/GM eCW1 ([facility]) Estradiol 0.1 MG/ML Vaginal Cream Estradiol 0.1 MG/GM Estrad iol 0.1 MG/GM 10/15/2019 12:00:00 AM EDT active Estradiol 0.1 MG/GM eCW1 ([facility]) Estradiol 0.1 MG/ML Vaginal Cream Estradiol 0.1 MG/GM Estrad iol 0.1 MG/GM 10/15/2019 12:00:00 AM EDT active Estradiol 0.1 MG/GM eCW1 ([facility]) Estradiol 0.1 MG/ML Vaginal Cream Estradiol 0.1 MG/GM Estrad iol 0.1 MG/GM 10/15/2019 12:00:00 AM EDT active Estradiol 0.1 MG/GM eCW1 ([facility]) 12 % 10/15/2019 12:00:00 AM EDT cream 140 APPLY 1 APPLICATION TO FEET TWO TIMES A DAY EXTERNALLY APPLY 1 APPLICATION TO FEET TWO TIMES A DAY EXTERNALLY SOLD: 11/12/2019 [facility] Estradiol 0.1 MG/ML Vaginal Cream Estradiol 0.1 MG/GM Estrad iol 0.1 MG/GM 10/15/2019 12:00:00 AM EDT active Estradiol 0.1 MG/GM eCW1 ([facility]) 12 % 10/15/2019 12:00:00 AM EDT cream 140 APPLY 1 APPLICATION TO FEET TWO TIMES A DAY EXTERNALLY APPLY 1 APPLICATION TO FEET TWO TIMES A DAY EXTERNALLY SOLD: 02/06/2020 [facility] Estradiol 0.1 MG/ML Vaginal Cream Estradiol 0.1 MG/GM Estrad iol 0.1 MG/GM 10/15/2019 12:00:00 AM EDT active Estradiol 0.1 MG/GM eCW1 ([facility]) Estradiol 0.1 MG/ML Vaginal Cream Estradiol 0.1 MG/GM Estrad iol 0.1 MG/GM 10/15/2019 12:00:00 AM EDT active Estradiol 0.1 MG/GM eCW1 ([facility]) Estradiol 0.1 MG/ML Vaginal Cream Estradiol 0.1 MG/GM Estrad iol 0.1 MG/GM 10/15/2019 12:00:00 AM EDT active Estradiol 0.1 MG/GM eCW1 ([facility]) Estradiol 0.1 MG/ML Vaginal Cream Estradiol 0.1 MG/GM Estrad iol 0.1 MG/GM 10/15/2019 12:00:00 AM EDT active Estradiol 0.1 MG/GM eCW1 ([facility]) Estradiol 0.1 MG/ML Vaginal Cream Estradiol 0.1 MG/GM Estrad iol 0.1 MG/GM 10/15/2019 12:00:00 AM EDT active Estradiol 0.1 MG/GM eCW1 ([facility]) Estradiol 0.1 MG/ML Vaginal Cream Estradiol 0.1 MG/GM Estrad iol 0.1 MG/GM 10/15/2019 12:00:00 AM EDT active Estradiol 0.1 MG/GM eCW1 ([facility]) Estradiol 0.1 MG/ML Vaginal Cream Estradiol 0.1 MG/GM Estrad iol 0.1 MG/GM 10/15/2019 12:00:00 AM EDT active Estradiol 0.1 MG/GM eCW1 (Formerly [facility]) Estradiol 0.1 MG/ML Vaginal Cream Estradiol 0.1 MG/GM Estrad iol 0.1 MG/GM 10/15/2019 12:00:00 AM EDT active Estradiol 0.1 MG/GM eCW1 (Formerly [facility]) Estradiol 0.1 MG/ML Vaginal Cream Estradiol 0.1 MG/GM Estrad iol 0.1 MG/GM 10/15/2019 12:00:00 AM EDT active Estradiol 0.1 MG/GM eCW1 (Formerly [facility]) Estradiol 0.1 MG/ML Vaginal Cream Estradiol 0.1 MG/GM Estrad iol 0.1 MG/GM 10/15/2019 12:00:00 AM EDT active Estradiol 0.1 MG/GM eCW1 (Formerly [facility]) Estradiol 0.1 MG/ML Vaginal Cream Estradiol 0.1 MG/GM Estrad iol 0.1 MG/GM 10/15/2019 12:00:00 AM EDT active Estradiol 0.1 MG/GM eCW1 (Formerly [facility]) Estradiol 0.1 MG/ML Vaginal Cream Estradiol 0.1 MG/GM Estrad iol 0.1 MG/GM 10/15/2019 12:00:00 AM EDT active Estradiol 0.1 MG/GM eCW1 (Formerly [facility]) Estradiol 0.1 MG/ML Vaginal Cream Estradiol 0.1 MG/GM Estrad iol 0.1 MG/GM 10/15/2019 12:00:00 AM EDT active Estradiol 0.1 MG/GM eCW1 (Formerly [facility]) Estradiol 0.1 MG/ML Vaginal Cream Estradiol 0.1 MG/GM Estrad iol 0.1 MG/GM 10/15/2019 12:00:00 AM EDT active Estradiol 0.1 MG/GM eCW1 (Formerly [facility]) 4 mg 10/15/2019 12:00:00 AM EDT tablet 56 TAKE ONE TABLET BY MOUTH EVERY 3 HOURS NEEDED MAXIMUM DAILY DOSE = 8 TABLETS TAKE ONE TABLET BY MOUTH EVERY 3 HOURS NEEDED MAXIMUM DAILY DOSE = 8 TABLETS SOLD: 10/16/2019 [facility] Estradiol 0.1 MG/ML Vaginal Cream Estradiol 0.1 MG/GM Estrad iol 0.1 MG/GM 10/15/2019 12:00:00 AM EDT active Estradiol 0.1 MG/GM eCW1 (Formerly [facility]) Estradiol 0.1 MG/ML Vaginal Cream Estradiol 0.1 MG/GM Estrad iol 0.1 MG/GM 10/15/2019 12:00:00 AM EDT active Estradiol 0.1 MG/GM eCW1 (Formerly [facility]) Estradiol 0.1 MG/ML Vaginal Cream Estradiol 0.1 MG/GM Estrad iol 0.1 MG/GM 10/15/2019 12:00:00 AM EDT active Estradiol 0.1 MG/GM eCW1 (Formerly [facility]) Estradiol 0.1 MG/ML Vaginal Cream Estradiol 0.1 MG/GM Estrad iol 0.1 MG/GM 10/15/2019 12:00:00 AM EDT active Estradiol 0.1 MG/GM eCW1 (Formerly [facility]) Estradiol 0.1 MG/ML Vaginal Cream Estradiol 0.1 MG/GM Estrad iol 0.1 MG/GM 10/15/2019 12:00:00 AM EDT active Estradiol 0.1 MG/GM eCW1 (Formerly [facility]) 12 % 10/15/2019 12:00:00 AM EDT cream 140 APPLY 1 APPLICATION TO FEET TWO TIMES A DAY EXTERNALLY APPLY 1 APPLICATION TO FEET TWO TIMES A DAY EXTERNALLY SOLD: 01/08/2020 [facility] Estradiol 0.1 MG/ML Vaginal Cream Estradiol 0.1 MG/GM Estrad iol 0.1 MG/GM 10/15/2019 12:00:00 AM EDT active Estradiol 0.1 MG/GM eCW1 ([facility]ly [facility]) Estradiol 0.1 MG/ML Vaginal Cream Estradiol 0.1 MG/GM Estrad iol 0.1 MG/GM 10/15/2019 12:00:00 AM EDT active Estradiol 0.1 MG/GM eCW1 (Formerly [facility]) Estradiol 0.1 MG/ML Vaginal Cream Estradiol 0.1 MG/GM Estrad iol 0.1 MG/GM 10/15/2019 12:00:00 AM EDT active Estradiol 0.1 MG/GM eCW1 ([facility]ly [facility]) Estradiol 0.1 MG/ML Vaginal Cream Estradiol 0.1 MG/GM Estrad iol 0.1 MG/GM 10/15/2019 12:00:00 AM EDT active Estradiol 0.1 MG/GM eCW1 ([facility]ly [facility]) Estradiol 0.1 MG/ML Vaginal Cream Estradiol 0.1 MG/GM Estrad iol 0.1 MG/GM 10/15/2019 12:00:00 AM EDT active Estradiol 0.1 MG/GM eCW1 ([facility]) Estradiol 0.1 MG/ML Vaginal Cream Estradiol 0.1 MG/GM Estrad iol 0.1 MG/GM 10/15/2019 12:00:00 AM EDT active Estradiol 0.1 MG/GM eCW1 ([facility]) Estradiol 0.1 MG/ML Vaginal Cream Estradiol 0.1 MG/GM Estrad iol 0.1 MG/GM 10/15/2019 12:00:00 AM EDT active Estradiol 0.1 MG/GM eCW1 ([facility]) Estradiol 0.1 MG/ML Vaginal Cream Estradiol 0.1 MG/GM Estrad iol 0.1 MG/GM 10/15/2019 12:00:00 AM EDT active Estradiol 0.1 MG/GM eCW1 ([facility]ly [facility]) Estradiol 0.1 MG/ML Vaginal Cream Estradiol 0.1 MG/GM Estrad iol 0.1 MG/GM 10/15/2019 12:00:00 AM EDT active Estradiol 0.1 MG/GM eCW1 ([facility]ly [facility]) Estradiol 0.1 MG/ML Vaginal Cream Estradiol 0.1 MG/GM Estrad iol 0.1 MG/GM 10/15/2019 12:00:00 AM EDT active Estradiol 0.1 MG/GM eCW1 ([facility]ly [facility]) Estradiol 0.1 MG/ML Vaginal Cream Estradiol 0.1 MG/GM Estrad iol 0.1 MG/GM 10/15/2019 12:00:00 AM EDT active Estradiol 0.1 MG/GM eCW1 ([facility]ly [facility]) 0.01 % (0.1 mg/gram) 10/15/2019 12:00:00 AM EDT cream 42 APPLY 1 GRAM DAILY VAGINAL DIRECTED APPLY 1 GRAM DAILY VAGINAL DIRECTED SOLD: 11/12/2019 [facility] 12 % 10/15/2019 12:00:00 AM EDT cream 140 APPLY 1 APPLICATION TO FEET TWO TIMES A DAY EXTERNALLY APPLY 1 APPLICATION TO FEET TWO TIMES A DAY EXTERNALLY SOLD: 12/10/2019 [facility] Estradiol 0.1 MG/ML Vaginal Cream Estradiol 0.1 MG/GM Estrad iol 0.1 MG/GM 10/15/2019 12:00:00 AM EDT active Estradiol 0.1 MG/GM eCW1 ([facility]) 0.01 % (0.1 mg/gram) 10/15/2019 12:00:00 AM EDT cream 42 APPLY 1 GRAM DAILY VAGINAL DIRECTED APPLY 1 GRAM DAILY VAGINAL DIRECTED SOLD: 10/16/2019 [facility] Estradiol 0.1 MG/ML Vaginal Cream Estradiol 0.1 MG/GM Estrad iol 0.1 MG/GM 10/15/2019 12:00:00 AM EDT active Estradiol 0.1 MG/GM eCW1 ([facility]ly [facility]) Estradiol 0.1 MG/ML Vaginal Cream Estradiol 0.1 MG/GM Estrad iol 0.1 MG/GM 10/15/2019 12:00:00 AM EDT active Estradiol 0.1 MG/GM eCW1 ([facility]ly [facility]) Estradiol 0.1 MG/ML Vaginal Cream Estradiol 0.1 MG/GM Estrad iol 0.1 MG/GM 10/15/2019 12:00:00 AM EDT active Estradiol 0.1 MG/GM eCW1 ([facility]ly [facility]) Estradiol 0.1 MG/ML Vaginal Cream Estradiol 0.1 MG/GM Estrad iol 0.1 MG/GM 10/15/2019 12:00:00 AM EDT active Estradiol 0.1 MG/GM eCW1 ([facility]ly [facility]) Estradiol 0.1 MG/ML Vaginal Cream Estradiol 0.1 MG/GM Estrad iol 0.1 MG/GM 10/15/2019 12:00:00 AM EDT active Estradiol 0.1 MG/GM eCW1 ([facility]) Estradiol 0.1 MG/ML Vaginal Cream Estradiol 0.1 MG/GM Estrad iol 0.1 MG/GM 10/15/2019 12:00:00 AM EDT active Estradiol 0.1 MG/GM eCW1 ([facility]) Estradiol 0.1 MG/ML Vaginal Cream Estradiol 0.1 MG/GM Estrad iol 0.1 MG/GM 10/15/2019 12:00:00 AM EDT active Estradiol 0.1 MG/GM eCW1 ([facility]) Estradiol 0.1 MG/ML Vaginal Cream Estradiol 0.1 MG/GM Estrad iol 0.1 MG/GM 10/15/2019 12:00:00 AM EDT active Estradiol 0.1 MG/GM eCW1 ([facility]) Estradiol 0.1 MG/ML Vaginal Cream Estradiol 0.1 MG/GM Estrad iol 0.1 MG/GM 10/15/2019 12:00:00 AM EDT active Estradiol 0.1 MG/GM eCW1 ([facility]) Estradiol 0.1 MG/ML Vaginal Cream Estradiol 0.1 MG/GM Estrad iol 0.1 MG/GM 10/15/2019 12:00:00 AM EDT active Estradiol 0.1 MG/GM eCW1 ([facility]) Estradiol 0.1 MG/ML Vaginal Cream Estradiol 0.1 MG/GM Estrad iol 0.1 MG/GM 10/15/2019 12:00:00 AM EDT active Estradiol 0.1 MG/GM eCW1 ([facility]) Estradiol 0.1 MG/ML Vaginal Cream Estradiol 0.1 MG/GM Estrad iol 0.1 MG/GM 10/15/2019 12:00:00 AM EDT active Estradiol 0.1 MG/GM eCW1 ([facility]ly [facility]) 12 % 10/15/2019 12:00:00 AM EDT cream 140 APPLY 1 APPLICATION TO FEET TWO TIMES A DAY EXTERNALLY APPLY 1 APPLICATION TO FEET TWO TIMES A DAY EXTERNALLY SOLD: 03/04/2020 [facility] Estradiol 0.1 MG/ML Vaginal Cream Estradiol 0.1 MG/GM Estrad iol 0.1 MG/GM 10/15/2019 12:00:00 AM EDT active Estradiol 0.1 MG/GM eCW1 (Formerly [facility]) ALCOHOL ANTISEPTIC PADS 10/08/2019 12:00:00 AM EDT [...] TIMES A DAY DIRECTED NEEDED SOLD: 01/26/2020 [email or web address] Estrogens, Conjugated (SNF) 0.625 MG/ML Vaginal Cream [Premarin] Premarin 0.625 MG/GM Premarin 0.625 MG/GM 10/01/2019 12:00:00 AM EDT active Premarin 0.625 MG/GM eCW1 ([facility]ly [facility]) 4 mg 10/01/2019 12:00:00 AM EDT tablet 56 TAKE 1 TABLET BY MOUTH EVERY 3 HOURS NEEDED MAXIMUM DAILY DOSE = 8 TABLETS TAKE 1 TABLET BY MOUTH EVERY 3 HOURS NEEDED MAXIMUM DAILY DOSE = 8 TABLETS SOLD: 10/01/2019 [email or web address] Estrogens, Conjugated (SNF) 0.625 MG/ML Vaginal Cream [Premarin] Premarin 0.625 MG/GM Premarin 0.625 MG/GM 10/01/2019 12:00:00 AM EDT active Premarin 0.625 MG/GM eCW1 ([facility]) Estrogens, Conjugated (SNF) 0.625 MG/ML Vaginal Cream [Premarin] Premarin 0.625 MG/GM Premarin 0.625 MG/GM 10/01/2019 12:00:00 AM EDT active Premarin 0.625 MG/GM eCW1 ([facility]ly [facility]) Estrogens, Conjugated (SNF) 0.625 MG/ML Vaginal Cream [Premarin] Premarin 0.625 MG/GM Premarin 0.625 MG/GM 10/01/2019 12:00:00 AM EDT active Premarin 0.625 MG/GM eCW1 ([facility]ly [facility]) 4 mg/2 mL 09/28/2019 12:00:00 AM EDT [...] THE SKIN IN THE MORNING SOLD: 03/06/2020 [facility] 90 mcg/actuation 09/17/2019 12:00:00 AM EDT [...] {tablets} suspended Hydromorphone HCl 4 MG eCW1 ([facility]) Hydromorphone Hydrochloride 4 MG Oral Tablet Hydromorp nellie HCl 4 MG Hydromorphone HCl 4 MG 09/17/2019 12:00:00 AM EDT 1.0 {tablets} active Hydromorphone HCl 4 MG eCW1 ([facility]) 31 gauge x 5/16" 09/17/2019 12:00:00 AM EDT needle 30 USE DIRECTED DAILY USE DIRECTED DAILY SOLD: 01/07/2020 [facility] Hydromorphone Hydrochloride 4 MG Oral Tablet Hydromorp nellie HCl 4 MG Hydromorphone HCl 4 MG 09/17/2019 12:00:00 AM EDT 1.0 {tablets} active Hydromorphone HCl 4 MG eCW1 ([facility]) 1 gram 09/17/2019 12:00:00 AM EDT tablet [...] MOUTH EVERY 4 HOURS NEEDED SOLD: 10/16/2019 [facility] Hydromorphone Hydrochloride 4 MG Oral Tablet Hydromorp nellie HCl 4 MG Hydromorphone HCl 4 MG 09/17/2019 12:00:00 AM EDT 1.0 {tablets} active Hydromorphone HCl 4 MG eCW1 ([facility]) 31 gauge x 5/16" 09/17/2019 12:00:00 AM EDT needle 30 USE DIRECTED DAILY USE DIRECTED DAILY SOLD: 12/10/2019 [facility] Hydromorphone Hydrochloride 4 MG Oral Tablet Hydromorp nellie HCl 4 MG Hydromorphone HCl 4 MG 09/17/2019 12:00:00 AM EDT 1.0 {tablets} active Hydromorphone HCl 4 MG eCW1 ([facility]) 1 gram 09/17/2019 12:00:00 AM EDT tablet 60 TAKE ONE TABLET BY MOUTH TWICE A DAY TAKE ONE TABLET BY MOUTH TWICE A DAY SOLD: 09/17/2019 [facility] Hydromorphone Hydrochloride 4 MG Oral Tablet Hydromorp nellie HCl 4 MG Hydromorphone HCl 4 MG 09/17/2019 12:00:00 AM EDT 1.0 {tablets} active Hydromorphone HCl 4 MG eCW1 ([facility]) 90 mcg/actuation 09/17/2019 12:00:00 AM EDT HFA aerosol inha ler 18 INHALE TWO PUFFS BY MOUTH EVERY 4 HOURS NEEDED INHALE TWO PUFFS BY MOUTH EVERY 4 HOURS NEEDED SOLD: 09/17/2019 [facility] Hydromorphone Hydrochloride 4 MG Oral Tablet Hydromorp nellie HCl 4 MG Hydromorphone HCl 4 MG 09/17/2019 12:00:00 AM EDT 1.0 {tablets} suspended Hydromorphone HCl 4 MG eCW1 ([facility]) Hydromorphone Hydrochloride 4 MG Oral Tablet Hydromorp nellie HCl 4 MG Hydromorphone HCl 4 MG 09/17/2019 12:00:00 AM EDT 1.0 {tablets} active Hydromorphone HCl 4 MG eCW1 ([facility]) 31 gauge x 5/16" 09/17/2019 12:00:00 AM EDT needle 30 USE DIRECTED DAILY USE DIRECTED DAILY SOLD: 10/16/2019 [facility] Hydromorphone Hydrochloride 4 MG Oral Tablet Hydromorp nellie HCl 4 MG Hydromorphone HCl 4 MG 09/17/2019 12:00:00 AM EDT 1.0 {tablets} suspended Hydromorphone HCl 4 MG eCW1 ([facility]) 4 mg 09/17/2019 12:00:00 AM EDT tablet 56 TAKE ONE TABLET BY MOUTH EVERY 3 HOURS NEEDED MAXIMUM DAILY DOSE = 8 TABLETS TAKE ONE TABLET BY MOUTH EVERY 3 HOURS NEEDED MAXIMUM DAILY DOSE = 8 TABLETS SOLD: 09/17/2019 [facility] 31 gauge x 5/16" 09/17/2019 12:00:00 AM EDT needle 30 USE DIRECTED DAILY USE DIRECTED DAILY SOLD: 11/12/2019 [facility] ALCOHOL ANTISEPTIC PADS 09/17/2019 12:00:00 AM EDT pads, med icated 100 USE DIRECTED TEST BLOOD SUGAR FOUR TIMES A DAY NEEDED USE DIRECTED TEST BLOOD SUGAR FOUR TIMES A DAY NEEDED SOLD: 09/17/2019 [facility] Hydromorphone Hydrochloride 4 MG Oral Tablet Hydromorp nellie HCl 4 MG Hydromorphone HCl 4 MG 09/17/2019 12:00:00 AM EDT 1.0 {tablets} active Hydromorphone HCl 4 MG eCW1 ([facility]) 1 gram 09/17/2019 12:00:00 AM EDT tablet 60 TAKE ONE TABLET BY MOUTH TWICE A DAY TAKE ONE TABLET BY MOUTH TWICE A DAY SOLD: 12/10/2019 [facility] Hydromorphone Hydrochloride 4 MG Oral Tablet Hydromorp nellie HCl 4 MG Hydromorphone HCl 4 MG 09/17/2019 12:00:00 AM EDT 1.0 {tablets} active Hydromorphone HCl 4 MG eCW1 ([facility]) 31 gauge x 5/16" 09/17/2019 12:00:00 AM EDT needle 30 USE DIRECTED DAILY USE DIRECTED DAILY SOLD: 09/17/2019 [facility] 1 gram 09/17/2019 12:00:00 AM EDT tablet 60 TAKE ONE TABLET BY MOUTH TWICE A DAY TAKE ONE TABLET BY MOUTH TWICE A DAY SOLD: 01/07/2020 [facility] Hydromorphone Hydrochloride 4 MG Oral Tablet Hydromorp nellie HCl 4 MG Hydromorphone HCl 4 MG 09/17/2019 12:00:00 AM EDT 1.0 {tablets} active Hydromorphone HCl 4 MG eCW1 ([facility]) Metronidazole 500 MG Oral Tablet Metronidazole 500 MG 2019 12:00:00 AM EDT 1.0 {tablet} active Metronidazo le 500 MG eCW1 ([facility]ly [facility]) Metronidazole 500 MG Oral Tablet Metronidazole 500 MG 2019 12:00:00 AM EDT 1.0 {tablet} active Metronidazo le 500 MG eCW1 (Formerly [facility]) Metronidazole 500 MG Oral Tablet Metronidazole 500 MG 2019 12:00:00 AM EDT active 1 tablet eCW1 (Formerly [facility]) Metronidazole 500 MG Oral Tablet Metronidazole 500 MG 2019 12:00:00 AM EDT 1.0 {tablet} active Metronidazo le 500 MG eCW1 (Formerly [facility]) 4 mg 09/10/2019 12:00:00 AM EDT tablet 90 TAKE TWO TABLETS BY MOUTH EVERY 3 HOURS NEEDED MAXIMUM DAILY DOSE = 16 TABLETS TAKE TWO TABLETS BY MOUTH EVERY 3 HOURS NEEDED MAXIMUM DAILY DOSE = 16 TABLETS SOLD: 09/10/2019 [email or web address] Metronidazole 500 MG Oral Tablet Metronidazole 500 MG 2019 12:00:00 AM EDT 1.0 {tablet} active Metronidazo le 500 MG eCW1 ([facility]) 500 mg 09/10/2019 12:00:00 AM EDT tablet 14 TAKE ONE TABLET BY MOUTH TWICE A DAY FOR 7 DAYS TAKE ONE TABLET BY MOUTH TWICE A DAY FOR 7 DAYS SOLD: 09/10/2019 [facility] Metronidazole 500 MG Oral Tablet Metronidazole 500 MG 2019 12:00:00 AM EDT 1.0 {tablet} active Metronidazo le 500 MG eCW1 ([facility]) Metronidazole 500 MG Oral Tablet Metronidazole 500 MG 2019 12:00:00 AM EDT 1.0 {tablet} suspended Metronid azole 500 MG eCW1 ([facility]) Metronidazole 500 MG Oral Tablet Metronidazole 500 MG 2019 12:00:00 AM EDT 1.0 {tablet} active Metronidazo le 500 MG eCW1 ([facility]) Metronidazole 500 MG Oral Tablet Metronidazole 500 MG 2019 12:00:00 AM EDT 1.0 {tablet} active Metronidazo le 500 MG eCW1 ([facility]) Metronidazole 500 MG Oral Tablet Metronidazole 500 MG 2019 12:00:00 AM EDT 1.0 {tablet} suspended Metronid azole 500 MG eCW1 ([facility]) Metronidazole 500 MG Oral Tablet Metronidazole 500 MG 2019 12:00:00 AM EDT 1.0 {tablet} suspended Metronid azole 500 MG eCW1 ([facility]) Metronidazole 500 MG Oral Tablet Metronidazole 500 MG 2019 12:00:00 AM EDT 1.0 {tablet} suspended Metronid azole 500 MG eCW1 ([facility]) Metronidazole 500 MG Oral Tablet Metronidazole 500 MG 2019 12:00:00 AM EDT 1.0 {tablet} active Metronidazo le 500 MG eCW1 ([facility]) Metronidazole 500 MG Oral Tablet Metronidazole 500 MG 2019 12:00:00 AM EDT 1.0 {tablet} suspended Metronid azole 500 MG eCW1 ([facility]) Hydromorphone Hydrochloride 4 MG Oral Tablet Hydromorp nellie HCl 4 MG Hydromorphone HCl 4 MG 09/09/2019 12:00:00 AM EDT active 2 tablets eCW1 ([facility]) Hydromorphone Hydrochloride 4 MG Oral Tablet Hydromorp nellie HCl 4 MG Hydromorphone HCl 4 MG 09/09/2019 12:00:00 AM EDT active 2 tablets eCW1 ([facility]) Hydromorphone Hydrochloride 4 MG Oral Tablet Hydromorp nellie HCl 4 MG Hydromorphone HCl 4 MG 09/09/2019 12:00:00 AM EDT 2.0 {tablets} active Hydromorphone HCl 4 MG eCW1 ([facility]) Nebulizer/Tubing/Mouthpiece - Nebulizer/Tubing/Mouthpiece - 09/03/2019 12:00:00 AM EDT active Nebulizer/Tubing/ Mouthpiece - eCW1 ([facility]) Nebulizer/Tubing/Mouthpiece - Nebulizer/Tubing/Mouthpiece - 09/03/2019 12:00:00 AM EDT active Nebulizer/Tubing/ Mouthpiece - eCW1 ([facility]) Nebulizer Compressor UNK 09/03/2019 12:00:00 AM EDT active Nebulizer Compressor eCW1 ([facility]) Nebulizer Compressor UNK 09/03/2019 12:00:00 AM EDT active Nebulizer Compressor eCW1 ([facility]) Nebulizer/Tubing/Mouthpiece - Nebulizer/Tubing/Mouthpiece - 09/03/2019 12:00:00 AM EDT active Nebulizer/Tubing/ Mouthpiece - eCW1 ([facility]) Nebulizer Compressor UNK 09/03/2019 12:00:00 AM EDT active Nebulizer Compressor eCW1 ([facility]ly [facility]) 10 mg 09/03/2019 12:00:00 AM EDT capsule 120 TAKE ONE CAPSULE BY MOUTH FOUR TIMES A DAY TAKE ONE CAPSULE BY MOUTH FOUR TIMES A DAY SOLD: 09/30/2019 [facility] Nebulizer/Tubing/Mouthpiece - Nebulizer/Tubing/Mouthpiece - 09/03/2019 12:00:00 AM EDT active Nebulizer/Tubing/ Mouthpiece - eCW1 ([facility]) 10 mg 09/03/2019 12:00:00 AM EDT tablet 90 TAKE ONE TABLET BY MOUTH THREE TIMES A DAY TAKE ONE TABLET BY MOUTH THREE TIMES A DAY SOLD: 09/03/2019 [facility] Nebulizer Compressor UNK 09/03/2019 12:00:00 AM EDT active Nebulizer Compressor eCW1 ([facility]) Nebulizer Compressor UNK 09/03/2019 12:00:00 AM EDT active Nebulizer Compressor eCW1 ([facility]) Nebulizer/Tubing/Mouthpiece - Nebulizer/Tubing/Mouthpiece - 09/03/2019 12:00:00 AM EDT active Nebulizer/Tubing/ Mouthpiece - eCW1 ([facility]) Nebulizer/Tubing/Mouthpiece - Nebulizer/Tubing/Mouthpiece - 09/03/2019 12:00:00 AM EDT active Nebulizer/Tubing/ Mouthpiece - eCW1 ([facility]) Nebulizer/Tubing/Mouthpiece - Nebulizer/Tubing/Mouthpiece - 09/03/2019 12:00:00 AM EDT active Nebulizer/Tubing/ Mouthpiece - eCW1 ([facility]) Nebulizer/Tubing/Mouthpiece - Nebulizer/Tubing/Mouthpiece - 09/03/2019 12:00:00 AM EDT active Nebulizer/Tubing/ Mouthpiece - eCW1 ([facility]) Nebulizer/Tubing/Mouthpiece - Nebulizer/Tubing/Mouthpiece - 09/03/2019 12:00:00 AM EDT active Nebulizer/Tubing/ Mouthpiece - eCW1 ([facility]) Nebulizer Compressor UNK 09/03/2019 12:00:00 AM EDT active Nebulizer Compressor eCW1 ([facility]) Nebulizer Compressor UNK 09/03/2019 12:00:00 AM EDT active Nebulizer Compressor eCW1 ([facility]) Nebulizer/Tubing/Mouthpiece - Nebulizer/Tubing/Mouthpiece - 09/03/2019 12:00:00 AM EDT active Nebulizer/Tubing/ Mouthpiece - eCW1 ([facility]) Nebulizer Compressor UNK 09/03/2019 12:00:00 AM EDT active Nebulizer Compressor eCW1 ([facility]) Nebulizer/Tubing/Mouthpiece - Nebulizer/Tubing/Mouthpiece - 09/03/2019 12:00:00 AM EDT active Nebulizer/Tubing/ Mouthpiece - eCW1 ([facility]) Nebulizer/Tubing/Mouthpiece - Nebulizer/Tubing/Mouthpiece - 09/03/2019 12:00:00 AM EDT active Nebulizer/Tubing/ Mouthpiece - eCW1 ([facility]) Nebulizer Compressor UNK 09/03/2019 12:00:00 AM EDT active Nebulizer Compressor eCW1 ([facility]) Nebulizer Compressor UNK 09/03/2019 12:00:00 AM EDT active Nebulizer Compressor eCW1 ([facility]) Nebulizer Compressor UNK 09/03/2019 12:00:00 AM EDT active Nebulizer Compressor eCW1 ([facility]) Nebulizer/Tubing/Mouthpiece - Nebulizer/Tubing/Mouthpiece - 09/03/2019 12:00:00 AM EDT active Nebulizer/Tubing/ Mouthpiece - eCW1 ([facility]) Nebulizer/Tubing/Mouthpiece - Nebulizer/Tubing/Mouthpiece - 09/03/2019 12:00:00 AM EDT active Nebulizer/Tubing/ Mouthpiece - eCW1 ([facility]) Nebulizer Compressor UNK 09/03/2019 12:00:00 AM EDT active Nebulizer Compressor eCW1 ([facility]) Nebulizer/Tubing/Mouthpiece - Nebulizer/Tubing/Mouthpiece - 09/03/2019 12:00:00 AM EDT active Nebulizer/Tubing/ Mouthpiece - eCW1 ([facility]) Nebulizer Compressor UNK 09/03/2019 12:00:00 AM EDT active Nebulizer Compressor eCW1 ([facility]) Nebulizer Compressor UNK 09/03/2019 12:00:00 AM EDT active Nebulizer Compressor eCW1 ([facility]) Nebulizer/Tubing/Mouthpiece - Nebulizer/Tubing/Mouthpiece - 09/03/2019 12:00:00 AM EDT active Nebulizer/Tubing/ Mouthpiece - eCW1 ([facility]) 10 mg 09/03/2019 12:00:00 AM EDT tablet 90 TAKE ONE TABLET BY MOUTH THREE TIMES A DAY TAKE ONE TABLET BY MOUTH THREE TIMES A DAY SOLD: 01/13/2020 [facility] Nebulizer Compressor UNK 09/03/2019 12:00:00 AM EDT active Nebulizer Compressor eCW1 ([facility]) 10 mg 09/03/2019 12:00:00 AM EDT tablet 90 TAKE ONE TABLET BY MOUTH THREE TIMES A DAY TAKE ONE TABLET BY MOUTH THREE TIMES A DAY SOLD: 12/17/2019 [facility] Nebulizer/Tubing/Mouthpiece - Nebulizer/Tubing/Mouthpiece - 09/03/2019 12:00:00 AM EDT active Nebulizer/Tubing/ Mouthpiece - eCW1 ([facility]) Nebulizer Compressor UNK 09/03/2019 12:00:00 AM EDT active Nebulizer Compressor eCW1 ([facility]) Nebulizer/Tubing/Mouthpiece - Nebulizer/Tubing/Mouthpiece - 09/03/2019 12:00:00 AM EDT active Nebulizer/Tubing/ Mouthpiece - eCW1 ([facility]) Nebulizer/Tubing/Mouthpiece - Nebulizer/Tubing/Mouthpiece - 09/03/2019 12:00:00 AM EDT active Nebulizer/Tubing/ Mouthpiece - eCW1 ([facility]) Nebulizer/Tubing/Mouthpiece - Nebulizer/Tubing/Mouthpiece - 09/03/2019 12:00:00 AM EDT active Nebulizer/Tubing/ Mouthpiece - eCW1 ([facility]) Nebulizer Compressor UNK 09/03/2019 12:00:00 AM EDT active Nebulizer Compressor eCW1 ([facility]) Nebulizer/Tubing/Mouthpiece - Nebulizer/Tubing/Mouthpiece - 09/03/2019 12:00:00 AM EDT active Nebulizer/Tubing/ Mouthpiece - eCW1 ([facility]) Nebulizer Compressor UNK 09/03/2019 12:00:00 AM EDT active Nebulizer Compressor eCW1 ([facility]) Nebulizer/Tubing/Mouthpiece - Nebulizer/Tubing/Mouthpiece - 09/03/2019 12:00:00 AM EDT active Nebulizer/Tubing/ Mouthpiece - eCW1 ([facility]) Nebulizer/Tubing/Mouthpiece - Nebulizer/Tubing/Mouthpiece - 09/03/2019 12:00:00 AM EDT active Nebulizer/Tubing/ Mouthpiece - eCW1 ([facility]) Nebulizer/Tubing/Mouthpiece - Nebulizer/Tubing/Mouthpiece - 09/03/2019 12:00:00 AM EDT active Nebulizer/Tubing/ Mouthpiece - eCW1 ([facility]) Nebulizer Compressor UNK 09/03/2019 12:00:00 AM EDT active Nebulizer Compressor eCW1 ([facility]ly [facility]) Nebulizer Compressor UNK 09/03/2019 12:00:00 AM EDT active Nebulizer Compressor eCW1 (Formerly [facility]) 10 mg 09/03/2019 12:00:00 AM EDT capsule 120 TAKE ONE CAPSULE BY MOUTH FOUR TIMES A DAY TAKE ONE CAPSULE BY MOUTH FOUR TIMES A DAY SOLD: 09/03/2019 [facility] Nebulizer/Tubing/Mouthpiece - Nebulizer/Tubing/Mouthpiece - 09/03/2019 12:00:00 AM EDT active Nebulizer/Tubing/ Mouthpiece - eCW1 (Formerly [facility]) Nebulizer Compressor UNK 09/03/2019 12:00:00 AM EDT active Nebulizer Compressor eCW1 ([facility]ly [facility]) Nebulizer/Tubing/Mouthpiece - Nebulizer/Tubing/Mouthpiece - 09/03/2019 12:00:00 AM EDT active Nebulizer/Tubing/ Mouthpiece - eCW1 ([facility]ly [facility]) Nebulizer Compressor UNK 09/03/2019 12:00:00 AM EDT active Nebulizer Compressor eCW1 ([facility]ly [facility]) Nebulizer Compressor UNK 09/03/2019 12:00:00 AM EDT active Nebulizer Compressor eCW1 ([facility]) Nebulizer/Tubing/Mouthpiece - Nebulizer/Tubing/Mouthpiece - 09/03/2019 12:00:00 AM EDT active Nebulizer/Tubing/ Mouthpiece - eCW1 [facility] [place] Nebulizer/Tubing/Mouthpiece - Nebulizer/Tubing/Mouthpiece - 09/03/2019 12:00:00 AM EDT active Nebulizer/Tubing/ Mouthpiece - eCW1 ([facility]ly [facility]) Nebulizer Compressor UNK 09/03/2019 12:00:00 AM EDT active Nebulizer Compressor eCW1 ([facility]ly [facility]) Nebulizer/Tubing/Mouthpiece - Nebulizer/Tubing/Mouthpiece - 09/03/2019 12:00:00 AM EDT active Nebulizer/Tubing/ Mouthpiece - eCW1 ([facility]ly [facility]) Nebulizer/Tubing/Mouthpiece - Nebulizer/Tubing/Mouthpiece - 09/03/2019 12:00:00 AM EDT active Nebulizer/Tubing/ Mouthpiece - eCW1 ([facility]ly [facility]) Nebulizer Compressor UNK 09/03/2019 12:00:00 AM EDT active Nebulizer Compressor eCW1 ([facility]ly [facility]) NEBULIZER AND COMPRESSOR 09/03/2019 12:00:00 AM EDT device 1 USE DIRECTED EVERY 4 HOURS NEEDED USE DIRECTED EVERY 4 HOURS NEEDED SOLD: 09/03/2019 [facility] Nebulizer Compressor UNK 09/03/2019 12:00:00 AM EDT active Nebulizer Compressor eCW1 ([facility]ly [facility]) Nebulizer/Tubing/Mouthpiece - Nebulizer/Tubing/Mouthpiece - 09/03/2019 12:00:00 AM EDT active Nebulizer/Tubing/ Mouthpiece - eCW1 ([facility]) Nebulizer Compressor UNK 09/03/2019 12:00:00 AM EDT active Nebulizer Compressor eCW1 ([facility]) Nebulizer/Tubing/Mouthpiece - Nebulizer/Tubing/Mouthpiece - 09/03/2019 12:00:00 AM EDT active Nebulizer/Tubing/ Mouthpiece - eCW1 ([facility]) Nebulizer/Tubing/Mouthpiece - Nebulizer/Tubing/Mouthpiece - 09/03/2019 12:00:00 AM EDT active Nebulizer/Tubing/ Mouthpiece - eCW1 ([facility]) Nebulizer Compressor UNK 09/03/2019 12:00:00 AM EDT active Nebulizer Compressor eCW1 ([facility]) Nebulizer/Tubing/Mouthpiece - Nebulizer/Tubing/Mouthpiece - 09/03/2019 12:00:00 AM EDT active Nebulizer/Tubing/ Mouthpiece - eCW1 ([facility]ly [facility]) 10 mg 09/03/2019 12:00:00 AM EDT capsule 120 TAKE ONE CAPSULE BY MOUTH FOUR TIMES A DAY TAKE ONE CAPSULE BY MOUTH FOUR TIMES A DAY SOLD: 01/19/2020 [facility] Nebulizer Compressor UNK 09/03/2019 12:00:00 AM EDT active Nebulizer Compressor eCW1 ([facility]) Nebulizer/Tubing/Mouthpiece - Nebulizer/Tubing/Mouthpiece - 09/03/2019 12:00:00 AM EDT active Nebulizer/Tubing/ Mouthpiece - eCW1 ([facility]) Nebulizer Compressor UNK 09/03/2019 12:00:00 AM EDT active Nebulizer Compressor eCW1 ([facility]) Nebulizer Compressor UNK 09/03/2019 12:00:00 AM EDT active Nebulizer Compressor eCW1 ([facility]) Nebulizer Compressor UNK 09/03/2019 12:00:00 AM EDT active Nebulizer Compressor eCW1 ([facility]) . UNIT 09/03/2019 12:00:00 AM EDT Aerosol 1 USE DIRECTED EVERY 4 HOURS NEEDED USE DIRECTED EVERY 4 HOURS NEEDED SOLD: 09/03/2019 [facility] Nebulizer/Tubing/Mouthpiece - Nebulizer/Tubing/Mouthpiece - 09/03/2019 12:00:00 AM EDT active Nebulizer/Tubing/ Mouthpiece - eCW1 ([facility]) Nebulizer/Tubing/Mouthpiece - Nebulizer/Tubing/Mouthpiece - 09/03/2019 12:00:00 AM EDT active Nebulizer/Tubing/ Mouthpiece - eCW1 ([facility]) Nebulizer Compressor UNK 09/03/2019 12:00:00 AM EDT active Nebulizer Compressor eCW1 ([facility]) Nebulizer Compressor UNK 09/03/2019 12:00:00 AM EDT active Nebulizer Compressor eCW1 ([facility]) 10 mg 09/03/2019 12:00:00 AM EDT tablet 90 TAKE ONE TABLET BY MOUTH THREE TIMES A DAY TAKE ONE TABLET BY MOUTH THREE TIMES A DAY SOLD: 11/19/2019 [facility] Nebulizer/Tubing/Mouthpiece - Nebulizer/Tubing/Mouthpiece - 09/03/2019 12:00:00 AM EDT active Nebulizer/Tubing/ Mouthpiece - eCW1 ([facility]) Nebulizer Compressor UNK 09/03/2019 12:00:00 AM EDT active Nebulizer Compressor eCW1 ([facility]) Nebulizer Compressor UNK 09/03/2019 12:00:00 AM EDT active Nebulizer Compressor eCW1 ([facility]) Nebulizer/Tubing/Mouthpiece - Nebulizer/Tubing/Mouthpiece - 09/03/2019 12:00:00 AM EDT active Nebulizer/Tubing/ Mouthpiece - eCW1 ([facility]) Nebulizer Compressor UNK 09/03/2019 12:00:00 AM EDT active Nebulizer Compressor eCW1 ([facility]) Nebulizer Compressor UNK 09/03/2019 12:00:00 AM EDT active Nebulizer Compressor eCW1 ([facility]) Nebulizer/Tubing/Mouthpiece - Nebulizer/Tubing/Mouthpiece - 09/03/2019 12:00:00 AM EDT active Nebulizer/Tubing/ Mouthpiece - eCW1 ([facility]) Nebulizer/Tubing/Mouthpiece - Nebulizer/Tubing/Mouthpiece - 09/03/2019 12:00:00 AM EDT active Nebulizer/Tubing/ Mouthpiece - eCW1 ([facility]) Nebulizer/Tubing/Mouthpiece - Nebulizer/Tubing/Mouthpiece - 09/03/2019 12:00:00 AM EDT active Nebulizer/Tubing/ Mouthpiece - eCW1 ([facility]) Nebulizer/Tubing/Mouthpiece - Nebulizer/Tubing/Mouthpiece - 09/03/2019 12:00:00 AM EDT active Nebulizer/Tubing/ Mouthpiece - eCW1 ([facility]) Nebulizer Compressor UNK 09/03/2019 12:00:00 AM EDT active Nebulizer Compressor eCW1 ([facility]) Nebulizer/Tubing/Mouthpiece - Nebulizer/Tubing/Mouthpiece - 09/03/2019 12:00:00 AM EDT active Nebulizer/Tubing/ Mouthpiece - eCW1 ([facility]) Nebulizer Compressor UNK 09/03/2019 12:00:00 AM EDT active Nebulizer Compressor eCW1 ([facility]) Nebulizer/Tubing/Mouthpiece - Nebulizer/Tubing/Mouthpiece - 09/03/2019 12:00:00 AM EDT active Nebulizer/Tubing/ Mouthpiece - eCW1 ([facility]) Nebulizer Compressor UNK 09/03/2019 12:00:00 AM EDT active Nebulizer Compressor eCW1 ([facility]) Nebulizer Compressor UNK 09/03/2019 12:00:00 AM EDT active Nebulizer Compressor eCW1 ([facility]) Nebulizer Compressor UNK 09/03/2019 12:00:00 AM EDT active Nebulizer Compressor eCW1 ([facility]) Nebulizer Compressor UNK 09/03/2019 12:00:00 AM EDT active Nebulizer Compressor eCW1 ([facility]) Nebulizer Compressor UNK 09/03/2019 12:00:00 AM EDT active Nebulizer Compressor eCW1 ([facility]) Nebulizer/Tubing/Mouthpiece - Nebulizer/Tubing/Mouthpiece - 09/03/2019 12:00:00 AM EDT active Nebulizer/Tubing/ Mouthpiece - eCW1 ([facility]) Nebulizer Compressor UNK 09/03/2019 12:00:00 AM EDT active Nebulizer Compressor eCW1 ([facility]) Nebulizer/Tubing/Mouthpiece - Nebulizer/Tubing/Mouthpiece - 09/03/2019 12:00:00 AM EDT active Nebulizer/Tubing/ Mouthpiece - eCW1 ([facility]) Nebulizer/Tubing/Mouthpiece - Nebulizer/Tubing/Mouthpiece - 09/03/2019 12:00:00 AM EDT active Nebulizer/Tubing/ Mouthpiece - eCW1 ([facility]) Nebulizer Compressor UNK 09/03/2019 12:00:00 AM EDT active Nebulizer Compressor eCW1 ([facility]) Nebulizer/Tubing/Mouthpiece - Nebulizer/Tubing/Mouthpiece - 09/03/2019 12:00:00 AM EDT active Nebulizer/Tubing/ Mouthpiece - eCW1 ([facility]) Nebulizer Compressor UNK 09/03/2019 12:00:00 AM EDT active Nebulizer Compressor eCW1 ([facility]) Nebulizer Compressor UNK 09/03/2019 12:00:00 AM EDT active Nebulizer Compressor eCW1 ([facility]) Nebulizer/Tubing/Mouthpiece - Nebulizer/Tubing/Mouthpiece - 09/03/2019 12:00:00 AM EDT active Nebulizer/Tubing/ Mouthpiece - eCW1 ([facility]) 10 mg 09/03/2019 12:00:00 AM EDT capsule 120 TAKE ONE CAPSULE BY MOUTH FOUR TIMES A DAY TAKE ONE CAPSULE BY MOUTH FOUR TIMES A DAY SOLD: 12/24/2019 [facility] Nebulizer Compressor UNK 09/03/2019 12:00:00 AM EDT active Nebulizer Compressor eCW1 ([facility]) 10 mg 09/03/2019 12:00:00 AM EDT tablet 90 TAKE ONE TABLET BY MOUTH THREE TIMES A DAY TAKE ONE TABLET BY MOUTH THREE TIMES A DAY SOLD: 10/25/2019 [facility] Nebulizer/Tubing/Mouthpiece - Nebulizer/Tubing/Mouthpiece - 09/03/2019 12:00:00 AM EDT active Nebulizer/Tubing/ Mouthpiece - eCW1 ([facility]) Nebulizer/Tubing/Mouthpiece - Nebulizer/Tubing/Mouthpiece - 09/03/2019 12:00:00 AM EDT active Nebulizer/Tubing/ Mouthpiece - eCW1 ([facility]) Nebulizer Compressor UNK 09/03/2019 12:00:00 AM EDT active 1 eCW1 ([facility]) Nebulizer Compressor UNK 09/03/2019 12:00:00 AM EDT active Nebulizer Compressor eCW1 ([facility]) Nebulizer Compressor UNK 09/03/2019 12:00:00 AM EDT active Nebulizer Compressor eCW1 ([facility]) Nebulizer/Tubing/Mouthpiece - Nebulizer/Tubing/Mouthpiece - 09/03/2019 12:00:00 AM EDT active Nebulizer/Tubing/ Mouthpiece - eCW1 ([facility]) 10 mg 09/03/2019 12:00:00 AM EDT capsule 120 TAKE ONE CAPSULE BY MOUTH FOUR TIMES A DAY TAKE ONE CAPSULE BY MOUTH FOUR TIMES A DAY SOLD: 10/28/2019 [facility] Nebulizer Compressor UNK 09/03/2019 12:00:00 AM EDT active Nebulizer Compressor eCW1 ([facility]) Nebulizer Compressor UNK 09/03/2019 12:00:00 AM EDT active Nebulizer Compressor eCW1 ([facility]) Nebulizer Compressor UNK 09/03/2019 12:00:00 AM EDT active Nebulizer Compressor eCW1 ([facility]) Nebulizer Compressor UNK 09/03/2019 12:00:00 AM EDT active Nebulizer Compressor eCW1 ([facility]) Nebulizer/Tubing/Mouthpiece - Nebulizer/Tubing/Mouthpiece - 09/03/2019 12:00:00 AM EDT active Nebulizer/Tubing/ Mouthpiece - eCW1 ([facility]) Nebulizer/Tubing/Mouthpiece - Nebulizer/Tubing/Mouthpiece - 09/03/2019 12:00:00 AM EDT active Nebulizer/Tubing/ Mouthpiece - eCW1 ([facility]) Nebulizer Compressor UNK 09/03/2019 12:00:00 AM EDT active Nebulizer Compressor eCW1 ([facility]) Nebulizer Compressor UNK 09/03/2019 12:00:00 AM EDT active Nebulizer Compressor eCW1 ([facility]) Nebulizer Compressor UNK 09/03/2019 12:00:00 AM EDT active Nebulizer Compressor eCW1 ([facility]) Nebulizer Compressor UNK 09/03/2019 12:00:00 AM EDT active Nebulizer Compressor eCW1 ([facility]) Nebulizer/Tubing/Mouthpiece - Nebulizer/Tubing/Mouthpiece - 09/03/2019 12:00:00 AM EDT active Nebulizer/Tubing/ Mouthpiece - eCW1 ([facility]) Nebulizer Compressor UNK 09/03/2019 12:00:00 AM EDT active Nebulizer Compressor eCW1 ([facility]) Nebulizer Compressor UNK 09/03/2019 12:00:00 AM EDT active Nebulizer Compressor eCW1 ([facility]) Nebulizer/Tubing/Mouthpiece - Nebulizer/Tubing/Mouthpiece - 09/03/2019 12:00:00 AM EDT active Nebulizer/Tubing/ Mouthpiece - eCW1 ([facility]) Nebulizer/Tubing/Mouthpiece - Nebulizer/Tubing/Mouthpiece - 09/03/2019 12:00:00 AM EDT active Nebulizer/Tubing/ Mouthpiece - eCW1 ([facility]) Nebulizer/Tubing/Mouthpiece - Nebulizer/Tubing/Mouthpiece - 09/03/2019 12:00:00 AM EDT active Nebulizer/Tubing/ Mouthpiece - eCW1 ([facility]) Nebulizer/Tubing/Mouthpiece - Nebulizer/Tubing/Mouthpiece - 09/03/2019 12:00:00 AM EDT active Nebulizer/Tubing/ Mouthpiece - eCW1 ([facility]) Nebulizer/Tubing/Mouthpiece - Nebulizer/Tubing/Mouthpiece - 09/03/2019 12:00:00 AM EDT active as directed eCW1 ([facility]) Nebulizer Compressor UNK 09/03/2019 12:00:00 AM EDT active Nebulizer Compressor eCW1 ([facility]) Nebulizer/Tubing/Mouthpiece - Nebulizer/Tubing/Mouthpiece - 09/03/2019 12:00:00 AM EDT active Nebulizer/Tubing/ Mouthpiece - eCW1 ([facility]) Nebulizer Compressor UNK 09/03/2019 12:00:00 AM EDT active Nebulizer Compressor eCW1 ([facility]) Nebulizer Compressor UNK 09/03/2019 12:00:00 AM EDT active Nebulizer Compressor eCW1 ([facility]) Nebulizer/Tubing/Mouthpiece - Nebulizer/Tubing/Mouthpiece - 09/03/2019 12:00:00 AM EDT active Nebulizer/Tubing/ Mouthpiece - eCW1 ([facility]) Nebulizer/Tubing/Mouthpiece - Nebulizer/Tubing/Mouthpiece - 09/03/2019 12:00:00 AM EDT active Nebulizer/Tubing/ Mouthpiece - eCW1 ([facility]) Nebulizer/Tubing/Mouthpiece - Nebulizer/Tubing/Mouthpiece - 09/03/2019 12:00:00 AM EDT active Nebulizer/Tubing/ Mouthpiece - eCW1 ([facility]) Nebulizer/Tubing/Mouthpiece - Nebulizer/Tubing/Mouthpiece - 09/03/2019 12:00:00 AM EDT active Nebulizer/Tubing/ Mouthpiece - eCW1 ([facility]) Nebulizer/Tubing/Mouthpiece - Nebulizer/Tubing/Mouthpiece - 09/03/2019 12:00:00 AM EDT active Nebulizer/Tubing/ Mouthpiece - eCW1 ([facility]) Nebulizer Compressor UNK 09/03/2019 12:00:00 AM EDT active Nebulizer Compressor eCW1 ([facility]) Nebulizer/Tubing/Mouthpiece - Nebulizer/Tubing/Mouthpiece - 09/03/2019 12:00:00 AM EDT active Nebulizer/Tubing/ Mouthpiece - eCW1 ([facility]) Nebulizer Compressor UNK 09/03/2019 12:00:00 AM EDT active Nebulizer Compressor eCW1 ([facility]) 10 mg 09/03/2019 12:00:00 AM EDT tablet 90 TAKE ONE TABLET BY MOUTH THREE TIMES A DAY TAKE ONE TABLET BY MOUTH THREE TIMES A DAY SOLD: 09/26/2019 [facility] Nebulizer Compressor UNK 09/03/2019 12:00:00 AM EDT active Nebulizer Compressor eCW1 ([facility]) Nebulizer/Tubing/Mouthpiece - Nebulizer/Tubing/Mouthpiece - 09/03/2019 12:00:00 AM EDT active Nebulizer/Tubing/ Mouthpiece - eCW1 ([facility]) 10 mg 09/03/2019 12:00:00 AM EDT capsule 120 TAKE ONE CAPSULE BY MOUTH FOUR TIMES A DAY TAKE ONE CAPSULE BY MOUTH FOUR TIMES A DAY SOLD: 11/26/2019 [facility] Nebulizer Compressor UNK 09/03/2019 12:00:00 AM EDT active Nebulizer Compressor eCW1 ([facility]) Nebulizer Compressor UNK 09/03/2019 12:00:00 AM EDT active Nebulizer Compressor eCW1 ([facility]) Nebulizer/Tubing/Mouthpiece - Nebulizer/Tubing/Mouthpiece - 09/03/2019 12:00:00 AM EDT active Nebulizer/Tubing/ Mouthpiece - eCW1 ([facility]) Nebulizer/Tubing/Mouthpiece - Nebulizer/Tubing/Mouthpiece - 09/03/2019 12:00:00 AM EDT active Nebulizer/Tubing/ Mouthpiece - eCW1 ([facility]) Nebulizer Compressor UNK 09/03/2019 12:00:00 AM EDT active Nebulizer Compressor eCW1 ([facility]) Nebulizer/Tubing/Mouthpiece - Nebulizer/Tubing/Mouthpiece - 09/03/2019 12:00:00 AM EDT active Nebulizer/Tubing/ Mouthpiece - eCW1 ([facility]) 4 mg 09/01/2019 12:00:00 AM EDT tablet [...] 12:00:00 AM EDT active 2 tablets eCW1 ([facility]) Hydromorphone Hydrochloride 4 MG Oral Tablet Hydromorp nellie HCl 4 MG Hydromorphone HCl 4 MG 08/28/2019 12:00:00 AM EDT active 2 tablets eCW1 ([facility]) Hydromorphone Hydrochloride 4 MG Oral Tablet Hydromorp nellie HCl 4 MG Hydromorphone HCl 4 MG 08/20/2019 12:00:00 AM EDT active 2 tablets eCW1 ([facility]) Hydromorphone Hydrochloride 4 MG Oral Tablet Hydromorp nellie HCl 4 MG Hydromorphone HCl 4 MG 08/20/2019 12:00:00 AM EDT active 2 tablets eCW1 ([facility]) 4 mg 08/20/2019 12:00:00 AM EDT tablet [...] 12:00:00 AM EDT active 2 tablets eCW1 ([facility]) Hydromorphone Hydrochloride 4 MG Oral Tablet Hydromorp nellie HCl 4 MG Hydromorphone HCl 4 MG 08/11/2019 12:00:00 AM EDT 2.0 {tablets} active Hydromorphone HCl 4 MG eCW1 ([facility]) 4 mg 08/11/2019 12:00:00 AM EDT tablet 112 TAKE 2 TABLETS BY MOUTH EVERY 3 HOURS NEEDED MAX DAILY DOSE = 16 TABLETS TAKE 2 TABLETS BY MOUTH EVERY 3 HOURS NEEDED MAX DAILY DOSE = 16 TABLETS SOLD: 08/11/2019 [facility] Hydromorphone Hydrochloride 4 MG Oral Tablet Hydromorp nellie HCl 4 MG Hydromorphone HCl 4 MG 08/11/2019 12:00:00 AM EDT 2.0 {tablets} active Hydromorphone HCl 4 MG eCW1 ([facility]) Hydromorphone Hydrochloride 4 MG Oral Tablet Hydromorp nellie HCl 4 MG Hydromorphone HCl 4 MG 08/06/2019 12:00:00 AM EDT active 2 tablets eCW1 ([facility]) 4 mg 08/06/2019 12:00:00 AM EDT tablet 32 TAKE 2 TABLETS BY MOUTH EVERY 3HRS NEEDED MAX 24 TABS/DAY TAKE 2 TABLETS BY MOUTH EVERY 3HRS NE EDED MAX 24 TABS/DAY SOLD: 08/06/2019 [facility] 150 mg 08/06/2019 12:00:00 AM [...] DAY NEEDED FOR ABDOMINAL CRAMPING SOLD: 08/27/2019 [facility] 4 mg 07/29/2019 12:00:00 AM EDT tablet 112 TAKE 2 TABLETS BY MOUTH EVERY 3 HOURS NEEDED MAXIMUM DAILY DOSE = 16 TABLETS TAKE 2 TABLETS BY MOUTH EVERY 3 HOURS NEEDED MAXIMUM DAILY DOSE = 16 TABLETS SOLD: 07/29/2019 [facility] tizanidine 2 MG Oral Tablet Tizanidine HCl 2 MG Tizanidine H Cl 2 MG 07/28/2019 12:00:00 AM EDT active 1 tablet as needed eCW1 ([facility]) 2 mg 07/28/2019 12:00:00 AM EDT tablet 75 TAKE 1 TABLET BY MOUTH EVERY 6HRS NEEDED SPASMS & PAIN MAX=3TABS/DAY TAKE 1 TABLET BY MOUTH EVERY 6HRS NEEDED SPASMS & PAIN MAX=3TABS/DAY SOLD: 07/28/2019 [facility] Hydromorphone Hydrochloride 4 MG Oral Tablet Hydromorp nellie HCl 4 MG Hydromorphone HCl 4 MG 07/28/2019 12:00:00 AM EDT active 2 tablets eCW1 ([facility]) 0.1 % 07/27/2019 12:00:00 AM EDT cream 15 APPLY THIN LAYER TO RED AREAS ON FINGERS TWICE DAILY APPLY THIN LAYER TO RED AREAS ON FINGERS TWICE DAILY S OLD: 07/27/2019 [facility] Doxycycline Monohydrate 100 MG Oral Capsule Doxycycline [place] hydrate 100 MG 07/26/2019 12:00:00 AM EDT active 1 capsule eCW1 ([facility]) Doxycycline Monohydrate 100 MG Oral Capsule Doxycycline [place] hydrate 100 MG 07/26/2019 12:00:00 AM EDT active 1 capsule eCW1 ([facility]) 100 mg 07/26/2019 12:00:00 AM EDT capsule [...] 12:00:00 AM EDT active 2 tablets eCW1 ([facility]) 4 mg 07/23/2019 12:00:00 AM EDT tablet 32 TAKE TWO TABLETS BY MOUTH EVERY 3 HOURS NEEDED MAXIMUM DAILY DOSE = 24 TABLETS TAKE TWO TABLETS BY MOUTH EVERY 3 HOURS NEEDED MAXIMUM DAILY DOSE = 24 TABLETS SOLD: 07/23/2019 [facility] Pen [place] 5/16" UNK 07/22/2019 12:00:00 AM EDT active Pen [place] 5/16" eCW1 ([facility]) Pen [place] 5/16" UNK 07/22/2019 12:00:00 AM EDT active [place] 5/16" eCW1 ([facility]) Pen [place] 5/16" UNK 07/22/2019 12:00:00 AM EDT active [place] 5/16" eCW1 ([facility]) Pen [place] 5/16" UNK 07/22/2019 12:00:00 AM EDT active Pen [place] 5/16" eCW1 ([facility]) Pen [place] 5/16" UNK 07/22/2019 12:00:00 AM EDT active [place] 5/16" eCW1 ([facility]) Pen [place] 5/16" UNK 07/22/2019 12:00:00 AM EDT active [place] 5/16" eCW1 ([facility]) Pen [place] 5/16" UNK 07/22/2019 12:00:00 AM EDT active [place] 5/16" eCW1 ([facility]) Pen [place] 5/16" UNK 07/22/2019 12:00:00 AM EDT active [place] 5/16" eCW1 ([facility]) [place] 5/16" UNK 07/22/2019 12:00:00 AM EDT active [place] 5/16" eCW1 ([facility]) Pen [place] 5/16" UNK 07/22/2019 12:00:00 AM EDT active [place] 5/16" eCW1 ([facility]) Pen [place] 5/16" UNK 07/22/2019 12:00:00 AM EDT active Pen [place] 5/16" eCW1 ([facility]) 31 gauge x 5/16" 07/22/2019 12:00:00 AM EDT needle 100 USE DIRECTED DAILY USE DIRECTED DAILY SOLD: 07/22/2019 [facility] Pen [place]chi 5/16" UNK 07/22/2019 12:00:00 AM EDT active [place] 5/16" eCW1 ([facility]) Pen [place] 5/16" UNK 07/22/2019 12:00:00 AM EDT active [place] 5/16" eCW1 ([facility]) Pen [place] 5/16" UNK 07/22/2019 12:00:00 AM EDT active Pen [place] 5/16" eCW1 ([facility]) Pen [place] 5/16" UNK 07/22/2019 12:00:00 AM EDT active [place] 5/16" eCW1 ([facility]) Pen [place] 5/16" UNK 07/22/2019 12:00:00 AM EDT active [place] 5/16" eCW1 ([facility]) Pen [place] 5/16" UNK 07/22/2019 12:00:00 AM EDT active as directed eCW1 ([facility]) Pen [place] 5/16" UNK 07/22/2019 12:00:00 AM EDT active [place] 5/16" eCW1 ([facility]) Pen [place] 5/16" UNK 07/22/2019 12:00:00 AM EDT active [place] 5/16" eCW1 ([facility]) Pen [place] 5/16" UNK 07/22/2019 12:00:00 AM EDT active [place] 5/16" eCW1 ([facility]) Pen [place] 5/16" UNK 07/22/2019 12:00:00 AM EDT active [place] 5/16" eCW1 ([facility]) Pen [place] 5/16" UNK 07/22/2019 12:00:00 AM EDT active [place] 5/16" eCW1 ([facility]) Pen [place] 5/16" UNK 07/22/2019 12:00:00 AM EDT active [place] 5/16" eCW1 ([facility]) Pen [place] 5/16" UNK 07/22/2019 12:00:00 AM EDT active [place] 5/16" eCW1 ([facility]) Pen [place] 5/16" UNK 07/22/2019 12:00:00 AM EDT active [place] 5/16" eCW1 ([facility]) Pen [place] 5/16" UNK 07/22/2019 12:00:00 AM EDT active [place] 5/16" eCW1 ([facility]) Pen [place] 5/16" UNK 07/22/2019 12:00:00 AM EDT active Pen [place] 5/16" eCW1 ([facility]) Pen [place] 5/16" UNK 07/22/2019 12:00:00 AM EDT active Pen [place] 5/16" eCW1 ([facility]) Pen [place] 5/16" UNK 07/22/2019 12:00:00 AM EDT active as directed W1 ([facility]) Pen [place] 5/16" UNK 07/22/2019 12:00:00 AM EDT active Pen [place] 5/16" eCW1 ([facility]) Pen [place] 5/16" UNK 07/22/2019 12:00:00 AM EDT active Pen [place] 5/16" eCW1 ([facility]) Pen [place] 5/16" UNK 07/22/2019 12:00:00 AM EDT active Pen [place] 5/16" eCW1 ([facility]) Pen [place] 5/16" UNK 07/22/2019 12:00:00 AM EDT active [place] 5/16" eCW1 ([facility]) Pen [place] 5/16" UNK 07/22/2019 12:00:00 AM EDT active [place] 5/16" eCW1 ([facility]) Pen [place] 5/16" UNK 07/22/2019 12:00:00 AM EDT active Pen [place] 5/16" eCW1 ([facility]) Pen [place] 5/16" UNK 07/22/2019 12:00:00 AM EDT active Pen [place] 5/16" eCW1 ([facility]) Pen [place] 5/16" UNK 07/22/2019 12:00:00 AM EDT active Pen [place] 5/16" W1 ([facility]) Pen [place] 5/16" UNK 07/22/2019 12:00:00 AM EDT active as directed W1 ([facility]) Pen [place] 5/16" UNK 07/22/2019 12:00:00 AM EDT active [facility] [place] 5/16" eCW1 (Formerly [facility]) [facility] [place] 5/16" UNK 07/22/2019 12:00:00 AM EDT active [facility] [place] 5/16" eCW1 (Formerly [facility]) [place] 5/16" UNK 07/22/2019 12:00:00 AM EDT active [place] 5/16" eCW1 (Formerly [facility]) [place] 5/16" UNK 07/22/2019 12:00:00 AM EDT active [place] 5/16" eCW1 (Formerly [facility]) [place] 5/16" UNK 07/22/2019 12:00:00 AM EDT active [place] 5/16" eCW1 (Formerly [facility]) [place] 5/16" UNK 07/22/2019 12:00:00 AM EDT active [place] 5/16" eCW1 ([facility]ly [facility]) [place] 5/16" UNK 07/22/2019 12:00:00 AM EDT active [place] 5/16" eCW1 ([facility]ly [facility]) [place] 5/16" UNK 07/22/2019 12:00:00 AM EDT active [place] 5/16" eCW1 ([facility]ly [facility]) [place] 5/16" UNK 07/22/2019 12:00:00 AM EDT active [place] 5/16" eCW1 ([facility]ly [facility]) [place] 5/16" UNK 07/22/2019 12:00:00 AM EDT active [place] 5/16" eCW1 ([facility]ly [facility]) [place] 5/16" UNK 07/22/2019 12:00:00 AM EDT active as directed eCW1 ([facility]ly [facility]) [place] 5/16" UNK 07/22/2019 12:00:00 AM EDT active [place] 5/16" eCW1 ([facility]ly [facility]) [place] 5/16" UNK 07/22/2019 12:00:00 AM EDT active as directed eCW1 ([facility]ly [facility]) [place] 5/16" UNK 07/22/2019 12:00:00 AM EDT active [place] 5/16" eCW1 ([facility]ly [facility]) [place] 5/16" UNK 07/22/2019 12:00:00 AM EDT active [place] 5/16" eCW1 ([facility]ly [facility]) [place] 5/16" UNK 07/22/2019 12:00:00 AM EDT active [place] 5/16" eCW1 ([facility]ly [facility]) [place] 5/16" UNK 07/22/2019 12:00:00 AM EDT active [place] 5/16" eCW1 ([facility]ly [facility]) [place] 5/16" UNK 07/22/2019 12:00:00 AM EDT active [place] 5/16" eCW1 ([facility]ly [facility]) [place] 5/16" UNK 07/22/2019 12:00:00 AM EDT active [place] 5/16" eCW1 ([facility]ly [facility]) [place] 5/16" UNK 07/22/2019 12:00:00 AM EDT active [place] 5/16" eCW1 ([facility]ly [facility]) [place] 5/16" UNK 07/22/2019 12:00:00 AM EDT active [place] 5/16" eCW1 ([facility]ly [facility]) [place] 5/16" UNK 07/22/2019 12:00:00 AM EDT active [place] 5/16" eCW1 ([facility]ly [facility]) [place] 5/16" UNK 07/22/2019 12:00:00 AM EDT active [place] 5/16" W1 ([facility]ly [facility]) [place] 5/16" UNK 07/22/2019 12:00:00 AM EDT active [place] 5/16" W1 ([facility]ly [facility]) [place] 5/16" UNK 07/22/2019 12:00:00 AM EDT active [facility] [place] 5/16" W1 ([facility]ly [facility]) [place] 5/16" UNK 07/22/2019 12:00:00 AM EDT active [place] 5/16" W1 ([facility]ly [facility]) [place] 5/16" UNK 07/22/2019 12:00:00 AM EDT active [place] 5/16" W1 ([facility]ly [facility]) [place] 5/16" UNK 07/22/2019 12:00:00 AM EDT active [place] 5/16" W1 ([facility]ly [facility]) [place] 5/16" UNK 07/22/2019 12:00:00 AM EDT active [place] 5/16" W1 ([facility]ly [facility]) [place] 5/16" UNK 07/22/2019 12:00:00 AM EDT active [place] 5/16" W1 ([facility]ly [facility]) [place] 5/16" UNK 07/22/2019 12:00:00 AM EDT active [facility] [place] 5/16" W1 ([facility]ly [facility]) [place] 5/16" UNK 07/22/2019 12:00:00 AM EDT active [place] 5/16" W1 ([facility]ly [facility]) [place] 5/16" UNK 07/22/2019 12:00:00 AM EDT active [place] 5/16" eCW1 ([facility]ly [facility]) [place] 5/16" UNK 07/22/2019 12:00:00 AM EDT active [place] 5/16" eCW1 ([facility]ly [facility]) [place] 5/16" UNK 07/22/2019 12:00:00 AM EDT active [place] 5/16" eCW1 ([facility]ly [facility]) [place] 5/16" UNK 07/22/2019 12:00:00 AM EDT active [place] 5/16" eCW1 ([facility]ly [facility]) [place] 5/16" UNK 07/22/2019 12:00:00 AM EDT active [place] 5/16" eCW1 ([facility]ly [facility]) [place] 5/16" UNK 07/22/2019 12:00:00 AM EDT active [place] 5/16" eCW1 ([facility]ly [facility]) [place] 5/16" UNK 07/22/2019 12:00:00 AM EDT active [place] 5/16" eCW1 ([facility]ly [facility]) [place] 5/16" UNK 07/22/2019 12:00:00 AM EDT active [place] 5/16" eCW1 ([facility]ly [facility]) [employer] Flex Touch 100 UNIT/ML UNK 07/16/2019 12:00:00 AM EDT active [employer] Flex Touch 100 UNIT/ML eCW1 ([facility]) [employer] Flex Touch 100 UNIT/ML UNK 07/16/2019 12:00:00 AM EDT active [employer] Touch 100 UNIT/ML eCW1 (Critical access hospital) [employer] Flex Touch 100 UNIT/ML UNK 07/16/2019 12:00:00 AM EDT active [employer] Flex Touch 100 UNIT/ML eCW1 (Critical access hospital) [employer] Flex Touch 100 UNIT/ML UNK 07/16/2019 12:00:00 AM EDT active [employer] Flex Touch 100 UNIT/ML eCW1 (Critical access hospital) [employer] Flex Touch 100 UNIT/ML UNK 07/16/2019 12:00:00 AM EDT active [employer] Touch 100 UNIT/ML eCW1 (Critical access hospital) [employer] Flex Touch 100 UNIT/ML UNK 07/16/2019 12:00:00 AM EDT active [employer] Flex Touch 100 UNIT/ML eCW1 (Critical access hospital) [employer] Flex Touch 100 UNIT/ML UNK 07/16/2019 12:00:00 AM EDT active [employer] Flex Touch 100 UNIT/ML eCW1 (Critical access hospital) 100 unit/mL (3 mL) 07/16/2019 12:00:00 AM [...] active [employer] Touch 100 UNIT/ML eCW1 (Critical access hospital) [employer] Flex Touch 100 UNIT/ML UNK 07/16/2019 12:00:00 AM EDT active [employer] Touch 100 UNIT/ML eCW1 (Critical access hospital) [employer] Flex Touch 100 UNIT/ML UNK 07/16/2019 12:00:00 AM EDT active [employer] Touch 100 UNIT/ML eCW1 (Critical access hospital) [employer] Touch 100 UNIT/ML UNK 07/16/2019 12:00:00 AM EDT active [employer] Touch 100 UNIT/ML eCW1 (Critical access hospital) [employer] Flex Touch 100 UNIT/ML UNK 07/16/2019 12:00:00 AM EDT active [employer] Touch 100 UNIT/ML eCW1 (Critical access hospital) [employer] Flex Touch 100 UNIT/ML UNK 07/16/2019 12:00:00 AM EDT active 25 units eCW1 ([facility]) [employer] Touch 100 UNIT/ML UNK 07/16/2019 12:00:00 AM EDT active [employer] Touch 100 UNIT/ML eCW1 (Critical access hospital) [employer] Flex Touch 100 UNIT/ML UNK 07/16/2019 12:00:00 AM EDT active [employer] Touch 100 UNIT/ML eCW1 (Critical access hospital) [employer] Flex Touch 100 UNIT/ML UNK 07/16/2019 12:00:00 AM EDT active [employer] Touch 100 UNIT/ML eCW1 (Critical access hospital) 50 mg 07/16/2019 12:00:00 AM EDT tablet 120 TAKE ONE TABLET BY MOUTH EVERY MORNING & 3 AT BEDTIME DIRECTED TAKE ONE TABLET BY MOUTH EVERY MORNING & 3 AT BEDTIME DIRECTED SOLD: 09/19/2019 [facility] [employer] Flex Touch 100 UNIT/ML UNK 07/16/2019 12:00:00 AM EDT active [employer] Touch 100 UNIT/ML eCW1 (Critical [facility] hospital) Hydromorphone Hydrochloride 4 MG Oral Tablet Hydromorp nellie HCl 4 MG Hydromorphone HCl 4 MG 07/16/2019 12:00:00 AM EDT active 2 tablets eCW1 ([facility]ly [facility]) [employer] Flex Touch 100 UNIT/ML UNK 07/16/2019 12:00:00 AM EDT active [employer] Touch 100 UNIT/ML eCW1 (Critical [facility] hospital) 4 mg/2 mL 07/16/2019 12:00:00 AM EDT solution 120 1 VIAL TWO TIMES A DAY AT LEAST 8 HOURS APART DIRECTED 1 VIAL TWO TIMES A DAY AT LEAST 8 HOURS APART DIRECTED SOLD: 09/01/2019 [facility] [employer] Flex Touch 100 UNIT/ML UNK 07/16/2019 12:00:00 AM EDT active [employer] Touch 100 UNIT/ML eCW1 (Critical [facility] hospital) [employer] Flex Touch 100 UNIT/ML UNK 07/16/2019 12:00:00 AM EDT active [employer] Touch 100 UNIT/ML eCW1 (Critical access hospital) 0.1 % 07/16/2019 12:00:00 AM EDT cream 15 APPLY THIN LAYER TO RED AREAS ON FINGERS TWICE A DAY APPLY THIN LAYER TO RED AREAS ON FINGERS TWICE A DAY S OLD: 11/18/2019 [facility] [employer] Flex Touch 100 UNIT/ML UNK 07/16/2019 12:00:00 AM EDT active [employer] Touch 100 UNIT/ML eCW1 (Critical [facility] hospital) [employer] Flex Touch 100 UNIT/ML UNK 07/16/2019 12:00:00 AM EDT active [employer] Touch 100 UNIT/ML eCW1 (Critical access hospital) [employer] Flex Touch 100 UNIT/ML UNK 07/16/2019 12:00:00 AM EDT active [employer] Touch 100 UNIT/ML eCW1 (Critical access hospital) [employer] Flex Touch 100 UNIT/ML UNK 07/16/2019 12:00:00 AM EDT active [employer] Flex Touch 100 UNIT/ML eCW1 (Critical access hospital) [employer] Flex Touch 100 UNIT/ML UNK 07/16/2019 12:00:00 AM EDT active [employer] Flex Touch 100 UNIT/ML eCW1 (Critical access hospital) [employer] Flex Touch 100 UNIT/ML UNK 07/16/2019 12:00:00 AM EDT active [employer] Flex Touch 100 UNIT/ML eCW1 (Critical access hospital) [employer] Flex Touch 100 UNIT/ML UNK 07/16/2019 12:00:00 AM EDT active [employer] Touch 100 UNIT/ML eCW1 (Critical access hospital) Nystatin 100 UNT/MG Topical Powder Nystatin 345122 UNI T/GM Nystatin 424625 UNIT/GM 07/16/2019 12:00:00 AM EDT active 1 application eCW1 ([facility]ly [facility]) [employer] Flex Touch 100 UNIT/ML UNK 07/16/2019 12:00:00 AM EDT active [employer] Flex Touch 100 UNIT/ML eCW1 (Critical [facility] hospital) [employer] Flex Touch 100 UNIT/ML UNK 07/16/2019 12:00:00 AM EDT active [employer] Flex Touch 100 UNIT/ML eCW1 (Critical access hospital) [employer] Flex Touch 100 UNIT/ML UNK 07/16/2019 12:00:00 AM EDT active 10 units eCW1 ([facility]) [employer] Flex Touch 100 UNIT/ML UNK 07/16/2019 12:00:00 AM EDT active [employer] Flex Touch 100 UNIT/ML eCW1 (Critical access hospital) [employer] Flex Touch 100 UNIT/ML UNK 07/16/2019 12:00:00 AM EDT active [employer] Flex Touch 100 UNIT/ML eCW1 (Critical access hospital) [employer] Flex Touch 100 UNIT/ML UNK 07/16/2019 12:00:00 AM EDT active [employer] Flex Touch 100 UNIT/ML eCW1 (Critical access hospital) [employer] Flex Touch 100 UNIT/ML UNK 07/16/2019 12:00:00 AM EDT active [employer] Flex Touch 100 UNIT/ML eCW1 (Critical access hospital) [employer] Flex Touch 100 UNIT/ML UNK 07/16/2019 12:00:00 AM EDT active [employer] Flex Touch 100 UNIT/ML eCW1 (Critical access hospital) 50 mg 07/16/2019 12:00:00 AM EDT tablet 120 TAKE ONE TABLET BY MOUTH EVERY MORNING & 3 AT BEDTIME DIRECTED TAKE ONE TABLET BY MOUTH EVERY MORNING & 3 AT BEDTIME DIRECTED SOLD: 08/26/2019 [facility] [employer] Flex Touch 100 UNIT/ML UNK 07/16/2019 12:00:00 AM EDT active [employer] Flex Touch 100 UNIT/ML eCW1 (Critical access hospital) [employer] Flex Touch 100 UNIT/ML UNK 07/16/2019 12:00:00 AM EDT active [employer] Flex Touch 100 UNIT/ML eCW1 (Critical access hospital) [employer] Flex Touch 100 UNIT/ML UNK 07/16/2019 12:00:00 AM EDT active [employer] Flex Touch 100 UNIT/ML eCW1 (Critical access hospital) [employer] Flex Touch 100 UNIT/ML UNK 07/16/2019 12:00:00 AM EDT active [employer] Flex Touch 100 UNIT/ML eCW1 (Critical access hospital) [employer] Flex Touch 100 UNIT/ML UNK 07/16/2019 12:00:00 AM EDT active 35 units eCW1 ([facility]) [employer] Flex Touch 100 UNIT/ML UNK 07/16/2019 12:00:00 AM EDT active [employer] Flex Touch 100 UNIT/ML eCW1 (Critical access hospital) [employer] Flex Touch 100 UNIT/ML UNK 07/16/2019 12:00:00 AM EDT active [employer] Flex Touch 100 UNIT/ML eCW1 (Critical access hospital) [employer] Flex Touch 100 UNIT/ML UNK 07/16/2019 12:00:00 AM EDT active [employer] Flex Touch 100 UNIT/ML eCW1 (Critical access hospital) 0.1 % 07/16/2019 12:00:00 AM EDT cream [...] active [employer] Flex Touch 100 UNIT/ML eCW1 (Critical access hospital) [employer] Flex Touch 100 UNIT/ML UNK 07/16/2019 12:00:00 AM EDT active [employer] Flex Touch 100 UNIT/ML eCW1 (Critical access hospital) [employer] Flex Touch 100 UNIT/ML UNK 07/16/2019 12:00:00 AM EDT active [employer] Flex Touch 100 UNIT/ML eCW1 (Critical access hospital) [employer] Flex Touch 100 UNIT/ML UNK 07/16/2019 12:00:00 AM EDT active [employer] Flex Touch 100 UNIT/ML eCW1 (Critical access hospital) [employer] Flex Touch 100 UNIT/ML UNK 07/16/2019 12:00:00 AM EDT active [employer] Flex Touch 100 UNIT/ML eCW1 (Critical access hospital) [employer] Flex Touch 100 UNIT/ML UNK 07/16/2019 12:00:00 AM EDT active [employer] Flex Touch 100 UNIT/ML eCW1 (Critical access hospital) [employer] Flex Touch 100 UNIT/ML UNK 07/16/2019 12:00:00 AM EDT active [employer] Flex Touch 100 UNIT/ML eCW1 (Critical access hospital) [employer] Flex Touch 100 UNIT/ML UNK 07/16/2019 12:00:00 AM EDT active [employer] Flex Touch 100 UNIT/ML eCW1 (Critical access hospital) [employer] Flex Touch 100 UNIT/ML UNK 07/16/2019 12:00:00 AM EDT active [employer] Flex Touch 100 UNIT/ML eCW1 (Critical access hospital) Le[employer] Flex Touch 100 UNIT/ML UNK 07/16/2019 12:00:00 AM EDT active [employer] Flex Touch 100 UNIT/ML eCW1 (Critical access hospital) Nystatin 100 UNT/MG Topical Powder 100,000 unit/gram [place]STATI N 07/16/2019 12:00:00 AM EDT powder 15 APPLY TO PERIANAL AREA TW O TIMES A DAY FOR 7 DAYS APPLY TO PERIANAL AREA TWO TIMES A DAY FOR 7 DAYS SOLD: 07/16/2019 [facility] [employer] Flex Touch 100 UNIT/ML UNK 07/16/2019 12:00:00 AM EDT active [employer] Flex Touch 100 UNIT/ML eCW1 (Critical access hospital) Le[employer] Flex Touch 100 UNIT/ML UNK 07/16/2019 12:00:00 AM EDT active [employer] Flex Touch 100 UNIT/ML eCW1 (Critical access hospital) [employer] Flex Touch 100 UNIT/ML UNK 07/16/2019 12:00:00 AM EDT active [employer] Flex Touch 100 UNIT/ML eCW1 (Critical access hospital) [employer] Flex Touch 100 UNIT/ML UNK 07/16/2019 12:00:00 AM EDT active [employer] Flex Touch 100 UNIT/ML eCW1 (Critical access hospital) 4 mg 07/16/2019 12:00:00 AM EDT tablet 32 TAKE 2 TABLETS BY MOUTH EVERY 3 HOURS NEEDED MAX 24TABS/DAY TAKE 2 TABLETS BY MOUTH EVERY 3 HOURS NEEDED MAX 24TABS/DAY SOLD: 07/16/2019 [facility] [employer] Flex Touch 100 UNIT/ML UNK 07/16/2019 12:00:00 AM EDT active [employer] Flex Touch 100 UNIT/ML eCW1 (Critical access hospital) 50 mg 07/16/2019 12:00:00 AM EDT tablet 120 TAKE ONE TABLET BY MOUTH EVERY MORNING & 3 AT BEDTIME DIRECTED TAKE ONE TABLET BY MOUTH EVERY MORNING & 3 AT BEDTIME DIRECTED SOLD: 07/16/2019 [facility] [employer] Flex Touch 100 UNIT/ML UNK 07/16/2019 12:00:00 AM EDT active Le[employer] Flex Touch 100 UNIT/ML eCW1 (Critical access hospital) Le[employer] Flex Touch 100 UNIT/ML UNK 07/16/2019 12:00:00 AM EDT active [employer] Flex Touch 100 UNIT/ML eCW1 (Critical access hospital) [employer] Flex Touch 100 UNIT/ML UNK 07/16/2019 12:00:00 AM EDT active Le[employer] Flex Touch 100 UNIT/ML eCW1 (Critical access hospital) 50 mg 07/16/2019 12:00:00 AM EDT tablet 120 TAKE ONE TABLET BY MOUTH EVERY MORNING & 3 AT BEDTIME DIRECTED TAKE ONE TABLET BY MOUTH EVERY MORNING & 3 AT BEDTIME DIRECTED SOLD: 07/29/2019 [facility] [employer] Flex Touch 100 UNIT/ML UNK 07/16/2019 12:00:00 AM EDT active [employer] Flex Touch 100 UNIT/ML eCW1 (Critical access hospital) 4 mg/2 mL 07/16/2019 12:00:00 AM EDT solution 120 1 VIAL TWO TIMES A DAY AT LEAST 8 HOURS APART DIRECTED 1 VIAL TWO TIMES A DAY AT LEAST 8 HOURS APART DIRECTED SOLD: 07/16/2019 [facility] Touch 100 UNIT/ML UNK 07/16/2019 12:00:00 AM EDT active [employer] Flex Touch 100 UNIT/ML eCW1 (Critical access hospital) [employer] Flex Touch 100 UNIT/ML UNK 07/16/2019 12:00:00 AM EDT active [employer] Flex Touch 100 UNIT/ML eCW1 (Critical access hospital) Le[employer]mir Flex Touch 100 UNIT/ML UNK 07/16/2019 12:00:00 AM EDT active [employer] Flex Touch 100 UNIT/ML eCW1 (Critical access hospital) [employer] Flex Touch 100 UNIT/ML UNK 07/16/2019 12:00:00 AM EDT active [employer] Flex Touch 100 UNIT/ML eCW1 (Critical access hospital) 50 mg 07/16/2019 12:00:00 AM EDT tablet 120 TAKE ONE TABLET BY MOUTH EVERY MORNING & 3 AT BEDTIME DIRECTED TAKE ONE TABLET BY MOUTH EVERY MORNING & 3 AT BEDTIME DIRECTED SOLD: 10/17/2019 [facility] [employer] Flex Touch 100 UNIT/ML UNK 07/16/2019 12:00:00 AM EDT active [employer] Flex Touch 100 UNIT/ML eCW1 (Critical access hospital) [employer] Flex Touch 100 UNIT/ML UNK 07/16/2019 12:00:00 AM EDT active [employer] Flex Touch 100 UNIT/ML eCW1 (Critical access hospital) [employer] Flex Touch 100 UNIT/ML UNK 07/16/2019 12:00:00 AM EDT active [employer] Flex Touch 100 UNIT/ML eCW1 (Critical access hospital) 50 mg 07/16/2019 12:00:00 AM EDT tablet 120 TAKE ONE TABLET BY MOUTH EVERY MORNING & 3 AT BEDTIME DIRECTED TAKE ONE TABLET BY MOUTH EVERY MORNING & 3 AT BEDTIME DIRECTED SOLD: 11/15/2019 [facility] [employer] Flex Touch 100 UNIT/ML UNK 07/16/2019 12:00:00 AM EDT active [employer] Flex Touch 100 UNIT/ML eCW1 (Critical access hospital) [employer] Flex Touch 100 UNIT/ML UNK 07/16/2019 12:00:00 AM EDT active 15 units eCW1 ([facility]) [employer] Flex Touch 100 UNIT/ML UNK 07/16/2019 12:00:00 AM EDT active 25 units eCW1 ([facility]) [employer] Flex Touch 100 UNIT/ML UNK 07/16/2019 12:00:00 AM EDT active [employer] Flex Touch 100 UNIT/ML eCW1 (Critical access hospital) [employer] Flex Touch 100 UNIT/ML UNK 07/16/2019 12:00:00 AM EDT active [employer] Flex Touch 100 UNIT/ML eCW1 (Critical access hospital) [employer] Flex Touch 100 UNIT/ML UNK 07/16/2019 12:00:00 AM EDT active [employer] Flex Touch 100 UNIT/ML eCW1 (Critical access hospital) [employer] Flex Touch 100 UNIT/ML UNK 07/16/2019 12:00:00 AM EDT active [employer] Flex Touch 100 UNIT/ML eCW1 (Critical access hospital) [employer] Flex Touch 100 UNIT/ML UNK 07/16/2019 12:00:00 AM EDT active [employer] Flex Touch 100 UNIT/ML eCW1 (Critical access hospital) 0.1 % 07/16/2019 12:00:00 AM EDT cream 15 APPLY THIN LAYER TO RED AREAS ON FINGERS TWICE A DAY APPLY THIN LAYER TO RED AREAS ON FINGERS TWICE A DAY S OLD: 07/16/2019 [facility] [employer] Flex Touch 100 UNIT/ML UNK 07/16/2019 12:00:00 AM EDT active [employer] Flex Touch 100 UNIT/ML eCW1 (Critical access hospital) 0.1 % 07/16/2019 12:00:00 AM EDT cream 15 APPLY THIN LAYER TO RED AREAS ON FINGERS TWICE A DAY APPLY THIN LAYER TO RED AREAS ON FINGERS TWICE A DAY S OLD: 09/07/2019 [facility] Hydromorphone Hydrochloride 4 MG Oral Tablet Hydromorp nellie HCl 4 MG Hydromorphone HCl 4 MG 07/09/2019 12:00:00 AM EDT active 3 tablets eCW1 ([facility]ly [facility]) Hydromorphone Hydrochloride 4 MG Oral Tablet Hydromorp nellie HCl 4 MG Hydromorphone HCl 4 MG 07/09/2019 12:00:00 AM EDT active 3 tablets eCW1 ([facility]) Hydromorphone Hydrochloride 4 MG Oral Tablet Hydromorp nellie HCl 4 MG Hydromorphone HCl 4 MG 07/09/2019 12:00:00 AM EDT active 2 tablets eCW1 ([facility]) Hydromorphone Hydrochloride 4 MG Oral Tablet Hydromorp nellie HCl 4 MG Hydromorphone HCl 4 MG 07/09/2019 12:00:00 AM EDT active 3 tablets eCW1 ([facility]) 4 mg 07/09/2019 12:00:00 AM EDT tablet 48 TAKE 3 TABLETS BY MOUTH EVERY 3 HOURS NEEDED MAXIMUM DAILY DOSE = 24 TABLETS TAKE 3 TABLETS BY MOUTH EVERY 3 HOURS NEEDED MAXIMUM DAILY DOSE = 24 TABLETS SOLD: 07/09/2019 [facility] Alcohol Prep Pad 70 % UNK 07/05/2019 12:00:00 AM EDT active Alcohol Prep Pad 70 % eCW1 ([facility]) Alcohol Prep Pad 70 % UNK 07/05/2019 12:00:00 AM EDT active Alcohol Prep Pad 70 % eCW1 ([facility]) Alcohol Prep Pad 70 % UNK 07/05/2019 12:00:00 AM EDT active as directed eCW1 ([facility]) Alcohol Prep Pad 70 % UNK 07/05/2019 12:00:00 AM EDT active Alcohol Prep Pad 70 % eCW1 ([facility]) Alcohol Prep Pad 70 % UNK 07/05/2019 12:00:00 AM EDT active Alcohol Prep Pad 70 % eCW1 ([facility]) Alcohol Prep Pad 70 % UNK 07/05/2019 12:00:00 AM EDT active Alcohol Prep Pad 70 % eCW1 ([facility]) Alcohol Prep Pad 70 % UNK 07/05/2019 12:00:00 AM EDT active as directed eCW1 ([facility]) Alcohol Prep Pad 70 % UNK 07/05/2019 12:00:00 AM EDT active Alcohol Prep Pad 70 % eCW1 ([facility]) Alcohol Prep Pad 70 % UNK 07/05/2019 12:00:00 AM EDT active Alcohol Prep Pad 70 % eCW1 ([facility]) Alcohol Prep Pad 70 % UNK 07/05/2019 12:00:00 AM EDT active Alcohol Prep Pad 70 % eCW1 ([facility]) Alcohol Prep Pad 70 % UNK 07/05/2019 12:00:00 AM EDT active Alcohol Prep Pad 70 % eCW1 ([facility]) Alcohol Prep Pad 70 % UNK 07/05/2019 12:00:00 AM EDT active Alcohol Prep Pad 70 % eCW1 ([facility]) Alcohol Prep Pad 70 % UNK 07/05/2019 12:00:00 AM EDT active Alcohol Prep Pad 70 % eCW1 ([facility]) Alcohol Prep Pad 70 % UNK 07/05/2019 12:00:00 AM EDT active Alcohol Prep Pad 70 % eCW1 ([facility]) Alcohol Prep Pad 70 % UNK 07/05/2019 12:00:00 AM EDT active Alcohol Prep Pad 70 % eCW1 ([facility]) Alcohol Prep Pad 70 % UNK 07/05/2019 12:00:00 AM EDT active Alcohol Prep Pad 70 % eCW1 ([facility]) Alcohol Prep Pad 70 % UNK 07/05/2019 12:00:00 AM EDT active as directed eCW1 ([facility]) Alcohol Prep Pad 70 % UNK 07/05/2019 12:00:00 AM EDT active Alcohol Prep Pad 70 % eCW1 ([facility]) Alcohol Prep Pad 70 % UNK 07/05/2019 12:00:00 AM EDT active Alcohol Prep Pad 70 % eCW1 ([facility]) Alcohol Prep Pad 70 % UNK 07/05/2019 12:00:00 AM EDT active Alcohol Prep Pad 70 % eCW1 ([facility]) Alcohol Prep Pad 70 % UNK 07/05/2019 12:00:00 AM EDT active Alcohol Prep Pad 70 % eCW1 ([facility]) Alcohol Prep Pad 70 % UNK 07/05/2019 12:00:00 AM EDT active Alcohol Prep Pad 70 % eCW1 ([facility]) Alcohol Prep Pad 70 % UNK 07/05/2019 12:00:00 AM EDT active Alcohol Prep Pad 70 % eCW1 ([facility]) Alcohol Prep Pad 70 % UNK 07/05/2019 12:00:00 AM EDT active Alcohol Prep Pad 70 % eCW1 ([facility]) Alcohol Prep Pad 70 % UNK 07/05/2019 12:00:00 AM EDT active Alcohol Prep Pad 70 % eCW1 ([facility]) Alcohol Prep Pad 70 % UNK 07/05/2019 12:00:00 AM EDT active Alcohol Prep Pad 70 % eCW1 ([facility]) Alcohol Prep Pad 70 % UNK 07/05/2019 12:00:00 AM EDT active Alcohol Prep Pad 70 % eCW1 ([facility]) Alcohol Prep Pad 70 % UNK 07/05/2019 12:00:00 AM EDT active Alcohol Prep Pad 70 % eCW1 ([facility]) Alcohol Prep Pad 70 % UNK 07/05/2019 12:00:00 AM EDT active Alcohol Prep Pad 70 % eCW1 ([facility]) Alcohol Prep Pad 70 % UNK 07/05/2019 12:00:00 AM EDT active Alcohol Prep Pad 70 % eCW1 ([facility]) Alcohol Prep Pad 70 % UNK 07/05/2019 12:00:00 AM EDT active Alcohol Prep Pad 70 % eCW1 ([facility]) Alcohol Prep Pad 70 % UNK 07/05/2019 12:00:00 AM EDT active as directed eCW1 ([facility]) Alcohol Prep Pad 70 % UNK 07/05/2019 12:00:00 AM EDT active Alcohol Prep Pad 70 % eCW1 ([facility]) Alcohol Prep Pad 70 % UNK 07/05/2019 12:00:00 AM EDT active Alcohol Prep Pad 70 % eCW1 ([facility]) Alcohol Prep Pad 70 % UNK 07/05/2019 12:00:00 AM EDT active Alcohol Prep Pad 70 % eCW1 ([facility]) Alcohol Prep Pad 70 % UNK 07/05/2019 12:00:00 AM EDT active Alcohol Prep Pad 70 % eCW1 ([facility]) Alcohol Prep Pad 70 % UNK 07/05/2019 12:00:00 AM EDT active Alcohol Prep Pad 70 % eCW1 ([facility]) Alcohol Prep Pad 70 % UNK 07/05/2019 12:00:00 AM EDT active Alcohol Prep Pad 70 % eCW1 ([facility]) Alcohol Prep Pad 70 % UNK 07/05/2019 12:00:00 AM EDT active Alcohol Prep Pad 70 % eCW1 (Formerly [facility]) Alcohol Prep Pad 70 % UNK 07/05/2019 12:00:00 AM EDT active Alcohol Prep Pad 70 % eCW1 (Formerly [facility]) Alcohol Prep Pad 70 % UNK 07/05/2019 12:00:00 AM EDT active Alcohol Prep Pad 70 % eCW1 (Formerly [facility]) Alcohol Prep Pad 70 % UNK 07/05/2019 12:00:00 AM EDT active as directed eCW1 (Formerly [facility]) Alcohol Prep Pad 70 % UNK 07/05/2019 12:00:00 AM EDT active Alcohol Prep Pad 70 % eCW1 (Formerly [facility]) Alcohol Prep Pad 70 % UNK 07/05/2019 12:00:00 AM EDT active Alcohol Prep Pad 70 % eCW1 (Formerly [facility]) Alcohol Prep Pad 70 % UNK 07/05/2019 12:00:00 AM EDT active Alcohol Prep Pad 70 % eCW1 (Formerly [facility]) Alcohol Prep Pad 70 % UNK 07/05/2019 12:00:00 AM EDT active Alcohol Prep Pad 70 % eCW1 (Formerly [facility]) Alcohol Prep Pad 70 % UNK 07/05/2019 12:00:00 AM EDT active as directed eCW1 (Formerly [facility]) Alcohol Prep Pad 70 % UNK 07/05/2019 12:00:00 AM EDT active Alcohol Prep Pad 70 % eCW1 (Formerly [facility]) Alcohol Prep Pad 70 % UNK 07/05/2019 12:00:00 AM EDT active Alcohol Prep Pad 70 % eCW1 (Formerly [facility]) Alcohol Prep Pad 70 % UNK 07/05/2019 12:00:00 AM EDT active Alcohol Prep Pad 70 % eCW1 (Formerly [facility]) Alcohol Prep Pad 70 % UNK 07/05/2019 12:00:00 AM EDT active as directed eCW1 (Formerly [facility]) Alcohol Prep Pad 70 % UNK 07/05/2019 12:00:00 AM EDT active Alcohol Prep Pad 70 % eCW1 (Formerly [facility]) Alcohol Prep Pad 70 % UNK 07/05/2019 12:00:00 AM EDT active Alcohol Prep Pad 70 % eCW1 (Formerly [facility]) Alcohol Prep Pad 70 % UNK 07/05/2019 12:00:00 AM EDT active Alcohol Prep Pad 70 % eCW1 (Formerly [facility]) Alcohol Prep Pad 70 % UNK 07/05/2019 12:00:00 AM EDT active Alcohol Prep Pad 70 % eCW1 (Formerly [facility]) Alcohol Prep Pad 70 % UNK 07/05/2019 12:00:00 AM EDT active Alcohol Prep Pad 70 % eCW1 (Formerly [facility]) Alcohol Prep Pad 70 % UNK 07/05/2019 12:00:00 AM EDT active Alcohol Prep Pad 70 % eCW1 (Formerly [facility]) Alcohol Prep Pad 70 % UNK 07/05/2019 12:00:00 AM EDT active Alcohol Prep Pad 70 % eCW1 (Formerly [facility]) Alcohol Prep Pad 70 % UNK 07/05/2019 12:00:00 AM EDT active Alcohol Prep Pad 70 % eCW1 (Formerly [facility]) Alcohol Prep Pad 70 % UNK 07/05/2019 12:00:00 AM EDT active Alcohol Prep Pad 70 % eCW1 ([facility]ly [facility]) Alcohol Prep Pad 70 % UNK 07/05/2019 12:00:00 AM EDT active Alcohol Prep Pad 70 % eCW1 ([facility]ly [facility]) Alcohol Prep Pad 70 % UNK 07/05/2019 12:00:00 AM EDT active Alcohol Prep Pad 70 % eCW1 ([facility]ly [facility]) Alcohol Prep Pad 70 % UNK 07/05/2019 12:00:00 AM EDT active Alcohol Prep Pad 70 % eCW1 ([facility]ly [facility]) Alcohol Prep Pad 70 % UNK 07/05/2019 12:00:00 AM EDT active Alcohol Prep Pad 70 % eCW1 ([facility]ly [facility]) Alcohol Prep Pad 70 % UNK 07/05/2019 12:00:00 AM EDT active Alcohol Prep Pad 70 % eCW1 ([facility]) Alcohol Prep Pad 70 % UNK 07/05/2019 12:00:00 AM EDT active Alcohol Prep Pad 70 % eCW1 ([facility]ly [facility]) Alcohol Prep Pad 70 % UNK 07/05/2019 12:00:00 AM EDT active Alcohol Prep Pad 70 % eCW1 ([facility]) Alcohol Prep Pad 70 % UNK 07/05/2019 12:00:00 AM EDT active Alcohol Prep Pad 70 % eCW1 ([facility]ly [facility]) Alcohol Prep Pad 70 % UNK 07/05/2019 12:00:00 AM EDT active Alcohol Prep Pad 70 % eCW1 ([facility]ly [facility]) Alcohol Prep Pad 70 % UNK 07/05/2019 12:00:00 AM EDT active Alcohol Prep Pad 70 % eCW1 ([facility]) Alcohol Prep Pad 70 % UNK 07/05/2019 12:00:00 AM EDT active Alcohol Prep Pad 70 % eCW1 ([facility]) Alcohol Prep Pad 70 % UNK 07/05/2019 12:00:00 AM EDT active Alcohol Prep Pad 70 % eCW1 ([facility]) Alcohol Prep Pad 70 % UNK 07/05/2019 12:00:00 AM EDT active as directed eCW1 ([facility]ly [facility]) Alcohol Prep Pad 70 % UNK 07/05/2019 12:00:00 AM EDT active Alcohol Prep Pad 70 % eCW1 ([facility]) Alcohol Prep Pad 70 % UNK 07/05/2019 12:00:00 AM EDT active Alcohol Prep Pad 70 % eCW1 ([facility]) Alcohol Prep Pad 70 % UNK 07/05/2019 12:00:00 AM EDT active Alcohol Prep Pad 70 % eCW1 ([facility]) Alcohol Prep Pad 70 % UNK 07/05/2019 12:00:00 AM EDT active Alcohol Prep Pad 70 % eCW1 ([facility]ly [facility]) Alcohol Prep Pad 70 % UNK 07/05/2019 12:00:00 AM EDT active Alcohol Prep Pad 70 % eCW1 (Former[facility]) Alcohol Prep Pad 70 % UNK 07/05/2019 12:00:00 AM EDT active Alcohol Prep Pad 70 % eCW1 ([facility]) Alcohol Prep Pad 70 % UNK 07/05/2019 12:00:00 AM EDT active Alcohol Prep Pad 70 % eCW1 (Formerly [facility]) Alcohol Prep Pad 70 % UNK 07/05/2019 12:00:00 AM EDT active Alcohol Prep Pad 70 % eCW1 (Formerly [facility]) 4 mg 07/04/2019 12:00:00 AM EDT tablet 48 TAKE 3 TABLETS BY MOUTH EVERY 3 HOURS NEEDED MAX 24TABS/DAY TAKE 3 TABLETS BY MOUTH EVERY 3 HOURS NEEDED MAX 24TABS/DAY SOLD: 07/04/2019 Nain rodney Metoclopramide 10 MG Oral Tablet Metoclopramide HCl 10 MG Metoclopramide HCl 10 MG 07/03/2019 12:00:00 AM EDT active Metoclopramide HCl 10 MG eCW1 (Formerly [facility]) Metoclopramide 10 MG Oral Tablet Metoclopramide HCl 10 MG Metoclopramide HCl 10 MG 07/03/2019 12:00:00 AM EDT active Metoclopramide HCl 10 MG eCW1 (Formerly [facility]) Metoclopramide 10 MG Oral Tablet Metoclopramide HCl 10 MG Metoclopramide HCl 10 MG 07/03/2019 12:00:00 AM EDT active Metoclopramide HCl 10 MG eCW1 (Formerly [facility]) ammonium lactate 120 MG/ML Topical Cream Ammonium Lact ate 12 % Ammonium Lactate 12 % 07/03/2019 12:00:00 AM EDT 1.0 {application} active Ammonium Lactate 12 % eCW1 (Formerly [facility]) Metoclopramide 10 MG Oral Tablet Metoclopramide HCl 10 MG Metoclopramide HCl 10 MG 07/03/2019 12:00:00 AM EDT active 1 tablet before meals and bedtime eCW1 (Formerly [facility]) ammonium lactate 120 MG/ML Topical Cream Ammonium Lact ate 12 % Ammonium Lactate 12 % 07/03/2019 12:00:00 AM EDT 1.0 {application} active Ammonium Lactate 12 % eCW1 (Formerly [facility]) ammonium lactate 120 MG/ML Topical Cream Ammonium Lact ate 12 % Ammonium Lactate 12 % 07/03/2019 12:00:00 AM EDT active 1 application eCW1 (Formerly [facility]) Metoclopramide 10 MG Oral Tablet Metoclopramide HCl 10 MG Metoclopramide HCl 10 MG 07/03/2019 12:00:00 AM EDT active Metoclopramide HCl 10 MG eCW1 (Former[facility]) ammonium lactate 120 MG/ML Topical Cream Ammonium Lact ate 12 % Ammonium Lactate 12 % 07/03/2019 12:00:00 AM EDT 1.0 {application} active Ammonium Lactate 12 % eCW1 (Former[facility]) ammonium lactate 120 MG/ML Topical Cream Ammonium Lact ate 12 % Ammonium Lactate 12 % 07/03/2019 12:00:00 AM EDT 1.0 {application} active Ammonium Lactate 12 % eCW1 (Former[facility]) Metoclopramide 10 MG Oral Tablet Metoclopramide HCl 10 MG Metoclopramide HCl 10 MG 07/03/2019 12:00:00 AM EDT active Metoclopramide HCl 10 MG eCW1 (Former[facility]) ammonium lactate 120 MG/ML Topical Cream Ammonium Lact ate 12 % Ammonium Lactate 12 % 07/03/2019 12:00:00 AM EDT 1.0 {application} active Ammonium Lactate 12 % eCW1 ([facility]) ammonium lactate 120 MG/ML Topical Cream Ammonium Lact ate 12 % Ammonium Lactate 12 % 07/03/2019 12:00:00 AM EDT 1.0 {application} active Ammonium Lactate 12 % eCW1 (Former[facility]) ammonium lactate 120 MG/ML Topical Cream Ammonium Lact ate 12 % Ammonium Lactate 12 % 07/03/2019 12:00:00 AM EDT 1.0 {application} active Ammonium Lactate 12 % eCW1 ([facility]) Metoclopramide 10 MG Oral Tablet Metoclopramide HCl 10 MG Metoclopramide HCl 10 MG 07/03/2019 12:00:00 AM EDT active Metoclopramide HCl 10 MG eCW1 ([facility]) ammonium lactate 120 MG/ML Topical Cream Ammonium Lact ate 12 % Ammonium Lactate 12 % 07/03/2019 12:00:00 AM EDT 1.0 {application} active Ammonium Lactate 12 % eCW1 ([facility]) Metoclopramide 10 MG Oral Tablet Metoclopramide HCl 10 MG Metoclopramide HCl 10 MG 07/03/2019 12:00:00 AM EDT active Metoclopramide HCl 10 MG eCW1 (Former[facility]) Metoclopramide 10 MG Oral Tablet Metoclopramide HCl 10 MG Metoclopramide HCl 10 MG 07/03/2019 12:00:00 AM EDT active Metoclopramide HCl 10 MG eCW1 (Former[facility]) ammonium lactate 120 MG/ML Topical Cream Ammonium Lact ate 12 % Ammonium Lactate 12 % 07/03/2019 12:00:00 AM EDT 1.0 {application} active Ammonium Lactate 12 % eCW1 ([facility]) ammonium lactate 120 MG/ML Topical Cream Ammonium Lact ate 12 % Ammonium Lactate 12 % 07/03/2019 12:00:00 AM EDT 1.0 {application} active Ammonium Lactate 12 % eCW1 (Former[facility]) Metoclopramide 10 MG Oral Tablet Metoclopramide HCl 10 MG Metoclopramide HCl 10 MG 07/03/2019 12:00:00 AM EDT active Metoclopramide HCl 10 MG eCW1 (Former[facility]) Metoclopramide 10 MG Oral Tablet Metoclopramide HCl 10 MG Metoclopramide HCl 10 MG 07/03/2019 12:00:00 AM EDT active Metoclopramide HCl 10 MG eCW1 (Former[facility]) ammonium lactate 120 MG/ML Topical Cream Ammonium Lact ate 12 % Ammonium Lactate 12 % 07/03/2019 12:00:00 AM EDT 1.0 {application} active Ammonium Lactate 12 % eCW1 ([facility]) ammonium lactate 120 MG/ML Topical Cream Ammonium Lact ate 12 % Ammonium Lactate 12 % 07/03/2019 12:00:00 AM EDT 1.0 {application} active Ammonium Lactate 12 % eCW1 (Former[facility]) Metoclopramide 10 MG Oral Tablet Metoclopramide HCl 10 MG Metoclopramide HCl 10 MG 07/03/2019 12:00:00 AM EDT active Metoclopramide HCl 10 MG eCW1 (Former[facility]) Metoclopramide 10 MG Oral Tablet Metoclopramide HCl 10 MG Metoclopramide HCl 10 MG 07/03/2019 12:00:00 AM EDT active Metoclopramide HCl 10 MG eCW1 (Former[facility]) ammonium lactate 120 MG/ML Topical Cream Ammonium Lact ate 12 % Ammonium Lactate 12 % 07/03/2019 12:00:00 AM EDT 1.0 {application} active Ammonium Lactate 12 % eCW1 (Former[facility]) ammonium lactate 120 MG/ML Topical Cream Ammonium Lact ate 12 % Ammonium Lactate 12 % 07/03/2019 12:00:00 AM EDT 1.0 {application} active Ammonium Lactate 12 % eCW1 (Former[facility]) ammonium lactate 120 MG/ML Topical Cream Ammonium Lact ate 12 % Ammonium Lactate 12 % 07/03/2019 12:00:00 AM EDT active 1 application eCW1 (Formerly [facility]) Metoclopramide 10 MG Oral Tablet Metoclopramide HCl 10 MG Metoclopramide HCl 10 MG 07/03/2019 12:00:00 AM EDT active Metoclopramide HCl 10 MG eCW1 (Formerly [facility]) ammonium lactate 120 MG/ML Topical Cream Ammonium Lact ate 12 % Ammonium Lactate 12 % 07/03/2019 12:00:00 AM EDT 1.0 {application} active Ammonium Lactate 12 % eCW1 (Former[facility]) ammonium lactate 120 MG/ML Topical Cream Ammonium Lact ate 12 % Ammonium Lactate 12 % 07/03/2019 12:00:00 AM EDT 1.0 {application} active Ammonium Lactate 12 % eCW1 (Former[facility]) Metoclopramide 10 MG Oral Tablet Metoclopramide HCl 10 MG Metoclopramide HCl 10 MG 07/03/2019 12:00:00 AM EDT active Metoclopramide HCl 10 MG eCW1 (Former[facility]) ammonium lactate 120 MG/ML Topical Cream Ammonium Lact ate 12 % Ammonium Lactate 12 % 07/03/2019 12:00:00 AM EDT 1.0 {application} active Ammonium Lactate 12 % eCW1 (Former[facility]) ammonium lactate 120 MG/ML Topical Cream Ammonium Lact ate 12 % Ammonium Lactate 12 % 07/03/2019 12:00:00 AM EDT 1.0 {application} active Ammonium Lactate 12 % eCW1 (Former[facility]) Hydromorphone Hydrochloride 4 MG Oral Tablet Hydromorp nellie HCl 4 MG Hydromorphone HCl 4 MG 07/03/2019 12:00:00 AM EDT active 3 tablets eCW1 (Formerly [facility]) Metoclopramide 10 MG Oral Tablet Metoclopramide HCl 10 MG Metoclopramide HCl 10 MG 07/03/2019 12:00:00 AM EDT active Metoclopramide HCl 10 MG eCW1 (Former[facility]) Metoclopramide 10 MG Oral Tablet Metoclopramide HCl 10 MG Metoclopramide HCl 10 MG 07/03/2019 12:00:00 AM EDT active Metoclopramide HCl 10 MG eCW1 (Former[facility]) Metoclopramide 10 MG Oral Tablet Metoclopramide HCl 10 MG Metoclopramide HCl 10 MG 07/03/2019 12:00:00 AM EDT active Metoclopramide HCl 10 MG eCW1 (Former[facility]) Metoclopramide 10 MG Oral Tablet Metoclopramide HCl 10 MG Metoclopramide HCl 10 MG 07/03/2019 12:00:00 AM EDT active Metoclopramide HCl 10 MG eCW1 (Former[facility]) Metoclopramide 10 MG Oral Tablet Metoclopramide HCl 10 MG Metoclopramide HCl 10 MG 07/03/2019 12:00:00 AM EDT active Metoclopramide HCl 10 MG eCW1 (Former[facility]) Metoclopramide 10 MG Oral Tablet Metoclopramide HCl 10 MG Metoclopramide HCl 10 MG 07/03/2019 12:00:00 AM EDT active 1 tablet before meals and bedtime eCW1 (Formerly [facility]) Metoclopramide 10 MG Oral Tablet Metoclopramide HCl 10 MG Metoclopramide HCl 10 MG 07/03/2019 12:00:00 AM EDT active Metoclopramide HCl 10 MG eCW1 (Former[facility]) ammonium lactate 120 MG/ML Topical Cream Ammonium Lact ate 12 % Ammonium Lactate 12 % 07/03/2019 12:00:00 AM EDT 1.0 {application} active Ammonium Lactate 12 % eCW1 (Former[facility]) ammonium lactate 120 MG/ML Topical Cream Ammonium Lact ate 12 % Ammonium Lactate 12 % 07/03/2019 12:00:00 AM EDT 1.0 {application} active Ammonium Lactate 12 % eCW1 ([facility]) ammonium lactate 120 MG/ML Topical Cream Ammonium Lact ate 12 % Ammonium Lactate 12 % 07/03/2019 12:00:00 AM EDT 1.0 {application} active Ammonium Lactate 12 % eCW1 ([facility]) Metoclopramide 10 MG Oral Tablet Metoclopramide HCl 10 MG Metoclopramide HCl 10 MG 07/03/2019 12:00:00 AM EDT active Metoclopramide HCl 10 MG eCW1 ([facility]) Metoclopramide 10 MG Oral Tablet Metoclopramide HCl 10 MG Metoclopramide HCl 10 MG 07/03/2019 12:00:00 AM EDT active Metoclopramide HCl 10 MG eCW1 (Former[facility]) ammonium lactate 120 MG/ML Topical Cream Ammonium Lact ate 12 % Ammonium Lactate 12 % 07/03/2019 12:00:00 AM EDT 1.0 {application} active Ammonium Lactate 12 % eCW1 ([facility]) Metoclopramide 10 MG Oral Tablet Metoclopramide HCl 10 MG Metoclopramide HCl 10 MG 07/03/2019 12:00:00 AM EDT active Metoclopramide HCl 10 MG eCW1 ([facility]) Metoclopramide 10 MG Oral Tablet Metoclopramide HCl 10 MG Metoclopramide HCl 10 MG 07/03/2019 12:00:00 AM EDT active Metoclopramide HCl 10 MG eCW1 ([facility]) Hydromorphone Hydrochloride 4 MG Oral Tablet Hydromorp nellie HCl 4 MG Hydromorphone HCl 4 MG 07/03/2019 12:00:00 AM EDT active 3 tablets eCW1 (Formerly [facility]) ammonium lactate 120 MG/ML Topical Cream Ammonium Lact ate 12 % Ammonium Lactate 12 % 07/03/2019 12:00:00 AM EDT 1.0 {application} active Ammonium Lactate 12 % eCW1 (Former[facility]) ammonium lactate 120 MG/ML Topical Cream Ammonium Lact ate 12 % Ammonium Lactate 12 % 07/03/2019 12:00:00 AM EDT 1.0 {application} active Ammonium Lactate 12 % eCW1 ([facility]) Metoclopramide HCl 5 MG/5ML Metoclopramide HCl 5 MG/5ML 06/13 12:00:00 AM EDT suspended 10 mg (10ml) e CW1 (Formerly [facility]) ammonium lactate 120 MG/ML Topical Cream Ammonium Lact ate 12 % Ammonium Lactate 12 % 07/03/2019 12:00:00 AM EDT 1.0 {application} active Ammonium Lactate 12 % eCW1 ([facility]) Metoclopramide 10 MG Oral Tablet Metoclopramide HCl 10 MG Metoclopramide HCl 10 MG 07/03/2019 12:00:00 AM EDT active Metoclopramide HCl 10 MG eCW1 ([facility]) Metoclopramide 10 MG Oral Tablet Metoclopramide HCl 10 MG Metoclopramide HCl 10 MG 07/03/2019 12:00:00 AM EDT active Metoclopramide HCl 10 MG eCW1 (Former[facility]) Metoclopramide 10 MG Oral Tablet Metoclopramide HCl 10 MG Metoclopramide HCl 10 MG 07/03/2019 12:00:00 AM EDT active Metoclopramide HCl 10 MG eCW1 (Former[facility]) ammonium lactate 120 MG/ML Topical Cream Ammonium Lact ate 12 % Ammonium Lactate 12 % 07/03/2019 12:00:00 AM EDT 1.0 {application} active Ammonium Lactate 12 % eCW1 ([facility]) Metoclopramide 10 MG Oral Tablet Metoclopramide HCl 10 MG Metoclopramide HCl 10 MG 07/03/2019 12:00:00 AM EDT active Metoclopramide HCl 10 MG eCW1 ([facility]) Metoclopramide 10 MG Oral Tablet Metoclopramide HCl 10 MG Metoclopramide HCl 10 MG 07/03/2019 12:00:00 AM EDT active Metoclopramide HCl 10 MG eCW1 ([facility]) ammonium lactate 120 MG/ML Topical Cream Ammonium Lact ate 12 % Ammonium Lactate 12 % 07/03/2019 12:00:00 AM EDT 1.0 {application} active Ammonium Lactate 12 % eCW1 ([facility]) Metoclopramide 10 MG Oral Tablet Metoclopramide HCl 10 MG Metoclopramide HCl 10 MG 07/03/2019 12:00:00 AM EDT active Metoclopramide HCl 10 MG eCW1 ([facility]) Metoclopramide 10 MG Oral Tablet Metoclopramide HCl 10 MG Metoclopramide HCl 10 MG 07/03/2019 12:00:00 AM EDT active Metoclopramide HCl 10 MG eCW1 ([facility]) ammonium lactate 120 MG/ML Topical Cream Ammonium Lact ate 12 % Ammonium Lactate 12 % 07/03/2019 12:00:00 AM EDT 1.0 {application} active Ammonium Lactate 12 % eCW1 ([facility]) Metoclopramide 10 MG Oral Tablet Metoclopramide HCl 10 MG Metoclopramide HCl 10 MG 07/03/2019 12:00:00 AM EDT active Metoclopramide HCl 10 MG eCW1 ([facility]) Metoclopramide 10 MG Oral Tablet Metoclopramide HCl 10 MG Metoclopramide HCl 10 MG 07/03/2019 12:00:00 AM EDT active Metoclopramide HCl 10 MG eCW1 ([facility]) Metoclopramide 10 MG Oral Tablet Metoclopramide HCl 10 MG Metoclopramide HCl 10 MG 07/03/2019 12:00:00 AM EDT active Metoclopramide HCl 10 MG eCW1 ([facility]) ammonium lactate 120 MG/ML Topical Cream Ammonium Lact ate 12 % Ammonium Lactate 12 % 07/03/2019 12:00:00 AM EDT 1.0 {application} active Ammonium Lactate 12 % eCW1 ([facility]) Metoclopramide 10 MG Oral Tablet Metoclopramide HCl 10 MG Metoclopramide HCl 10 MG 07/03/2019 12:00:00 AM EDT active 1 tablet before meals and bedtime eCW1 ([facility]) ammonium lactate 120 MG/ML Topical Cream Ammonium Lact ate 12 % Ammonium Lactate 12 % 07/03/2019 12:00:00 AM EDT 1.0 {application} active Ammonium Lactate 12 % eCW1 ([facility]) Metoclopramide 10 MG Oral Tablet Metoclopramide HCl 10 MG Metoclopramide HCl 10 MG 07/03/2019 12:00:00 AM EDT active Metoclopramide HCl 10 MG eCW1 ([facility]) ammonium lactate 120 MG/ML Topical Cream Ammonium Lact ate 12 % Ammonium Lactate 12 % 07/03/2019 12:00:00 AM EDT 1.0 {application} active Ammonium Lactate 12 % eCW1 ([facility]) Metoclopramide HCl 5 MG/5ML Metoclopramide HCl 5 MG/5ML 06/13 12:00:00 AM EDT active 10 mg (10ml) eCW1 ([facility]) Metoclopramide 10 MG Oral Tablet Metoclopramide HCl 10 MG Metoclopramide HCl 10 MG 07/03/2019 12:00:00 AM EDT active Metoclopramide HCl 10 MG eCW1 ([facility]) Metoclopramide 10 MG Oral Tablet Metoclopramide HCl 10 MG Metoclopramide HCl 10 MG 07/03/2019 12:00:00 AM EDT active Metoclopramide HCl 10 MG eCW1 ([facility]) ammonium lactate 120 MG/ML Topical Cream Ammonium Lact ate 12 % Ammonium Lactate 12 % 07/03/2019 12:00:00 AM EDT 1.0 {application} active Ammonium Lactate 12 % eCW1 ([facility]) ammonium lactate 120 MG/ML Topical Cream Ammonium Lact ate 12 % Ammonium Lactate 12 % 07/03/2019 12:00:00 AM EDT 1.0 {application} active Ammonium Lactate 12 % eCW1 ([facility]) Metoclopramide 10 MG Oral Tablet Metoclopramide HCl 10 MG Metoclopramide HCl 10 MG 07/03/2019 12:00:00 AM EDT active Metoclopramide HCl 10 MG eCW1 ([facility]) ammonium lactate 120 MG/ML Topical Cream Ammonium Lact ate 12 % Ammonium Lactate 12 % 07/03/2019 12:00:00 AM EDT 1.0 {application} active Ammonium Lactate 12 % eCW1 ([facility]) ammonium lactate 120 MG/ML Topical Cream Ammonium Lact ate 12 % Ammonium Lactate 12 % 07/03/2019 12:00:00 AM EDT 1.0 {application} active Ammonium Lactate 12 % eCW1 ([facility]) ammonium lactate 120 MG/ML Topical Cream Ammonium Lact ate 12 % Ammonium Lactate 12 % 07/03/2019 12:00:00 AM EDT 1.0 {application} active Ammonium Lactate 12 % eCW1 ([facility]) Metoclopramide 10 MG Oral Tablet Metoclopramide HCl 10 MG Metoclopramide HCl 10 MG 07/03/2019 12:00:00 AM EDT active Metoclopramide HCl 10 MG eCW1 ([facility]) ammonium lactate 120 MG/ML Topical Cream Ammonium Lact ate 12 % Ammonium Lactate 12 % 07/03/2019 12:00:00 AM EDT active 1 application eCW1 ([facility]) Metoclopramide 10 MG Oral Tablet Metoclopramide HCl 10 MG Metoclopramide HCl 10 MG 07/03/2019 12:00:00 AM EDT active Metoclopramide HCl 10 MG eCW1 ([facility]) Metoclopramide 10 MG Oral Tablet Metoclopramide HCl 10 MG Metoclopramide HCl 10 MG 07/03/2019 12:00:00 AM EDT active Metoclopramide HCl 10 MG eCW1 ([facility]) ammonium lactate 120 MG/ML Topical Cream Ammonium Lact ate 12 % Ammonium Lactate 12 % 07/03/2019 12:00:00 AM EDT 1.0 {application} active Ammonium Lactate 12 % eCW1 ([facility]) Metoclopramide 10 MG Oral Tablet Metoclopramide HCl 10 MG Metoclopramide HCl 10 MG 07/03/2019 12:00:00 AM EDT active Metoclopramide HCl 10 MG eCW1 ([facility]) Metoclopramide HCl 5 MG/5ML Metoclopramide HCl 5 MG/5ML 06/13 12:00:00 AM EDT suspended 10 mg (10ml) e CW1 ([facility]) ammonium lactate 120 MG/ML Topical Cream Ammonium Lact ate 12 % Ammonium Lactate 12 % 07/03/2019 12:00:00 AM EDT 1.0 {application} active Ammonium Lactate 12 % eCW1 ([facility]) Metoclopramide HCl 5 MG/5ML Metoclopramide HCl 5 MG/5ML 06/13 12:00:00 AM EDT suspended 10 mg (10ml) e CW1 ([facility]) ammonium lactate 120 MG/ML Topical Cream Ammonium Lact ate 12 % Ammonium Lactate 12 % 07/03/2019 12:00:00 AM EDT 1.0 {application} active Ammonium Lactate 12 % eCW1 (Formerly [facility]) ammonium lactate 120 MG/ML Topical Cream Ammonium Lact ate 12 % Ammonium Lactate 12 % 07/03/2019 12:00:00 AM EDT 1.0 {application} active Ammonium Lactate 12 % eCW1 (Formerly [facility]) ammonium lactate 120 MG/ML Topical Cream Ammonium Lact ate 12 % Ammonium Lactate 12 % 07/03/2019 12:00:00 AM EDT 1.0 {application} active Ammonium Lactate 12 % eCW1 (Formerly [facility]) Metoclopramide 10 MG Oral Tablet Metoclopramide HCl 10 MG Metoclopramide HCl 10 MG 07/03/2019 12:00:00 AM EDT active Metoclopramide HCl 10 MG eCW1 ([facility]ly [facility]) Metoclopramide 10 MG Oral Tablet Metoclopramide HCl 10 MG Metoclopramide HCl 10 MG 07/03/2019 12:00:00 AM EDT active Metoclopramide HCl 10 MG eCW1 ([facility]ly [facility]) Metoclopramide 10 MG Oral Tablet Metoclopramide HCl 10 MG Metoclopramide HCl 10 MG 07/03/2019 12:00:00 AM EDT active Metoclopramide HCl 10 MG eCW1 ([facility]ly [facility]) Metoclopramide 10 MG Oral Tablet Metoclopramide HCl 10 MG Metoclopramide HCl 10 MG 07/03/2019 12:00:00 AM EDT active Metoclopramide HCl 10 MG eCW1 ([facility]ly [facility]) ammonium lactate 120 MG/ML Topical Cream Ammonium Lact ate 12 % Ammonium Lactate 12 % 07/03/2019 12:00:00 AM EDT 1.0 {application} active Ammonium Lactate 12 % eCW1 ([facility]) ammonium lactate 120 MG/ML Topical Cream Ammonium Lact ate 12 % Ammonium Lactate 12 % 07/03/2019 12:00:00 AM EDT 1.0 {application} active Ammonium Lactate 12 % eCW1 ([facility]) Metoclopramide 10 MG Oral Tablet Metoclopramide HCl 10 MG Metoclopramide HCl 10 MG 07/03/2019 12:00:00 AM EDT active Metoclopramide HCl 10 MG eCW1 ([facility]) ammonium lactate 120 MG/ML Topical Cream Ammonium Lact ate 12 % Ammonium Lactate 12 % 07/03/2019 12:00:00 AM EDT 1.0 {application} active Ammonium Lactate 12 % eCW1 ([facility]) Metoclopramide HCl 5 MG/5ML Metoclopramide HCl 5 MG/5ML 06/13 12:00:00 AM EDT suspended 10 mg (10ml) e CW1 ([facility]ly [facility]) Metoclopramide 10 MG Oral Tablet Metoclopramide HCl 10 MG Metoclopramide HCl 10 MG 07/03/2019 12:00:00 AM EDT active Metoclopramide HCl 10 MG eCW1 ([facility]) ammonium lactate 120 MG/ML Topical Cream Ammonium Lact ate 12 % Ammonium Lactate 12 % 07/03/2019 12:00:00 AM EDT 1.0 {application} active Ammonium Lactate 12 % eCW1 ([facility]) Metoclopramide 10 MG Oral Tablet Metoclopramide HCl 10 MG Metoclopramide HCl 10 MG 07/03/2019 12:00:00 AM EDT active Metoclopramide HCl 10 MG eCW1 ([facility]) Metoclopramide 10 MG Oral Tablet Metoclopramide HCl 10 MG Metoclopramide HCl 10 MG 07/03/2019 12:00:00 AM EDT active Metoclopramide HCl 10 MG eCW1 ([facility]) ammonium lactate 120 MG/ML Topical Cream Ammonium Lact ate 12 % Ammonium Lactate 12 % 07/03/2019 12:00:00 AM EDT 1.0 {application} active Ammonium Lactate 12 % eCW1 ([facility]) ammonium lactate 120 MG/ML Topical Cream Ammonium Lact ate 12 % Ammonium Lactate 12 % 07/03/2019 12:00:00 AM EDT 1.0 {application} active Ammonium Lactate 12 % eCW1 ([facility]) Metoclopramide 10 MG Oral Tablet Metoclopramide HCl 10 MG Metoclopramide HCl 10 MG 07/03/2019 12:00:00 AM EDT active Metoclopramide HCl 10 MG eCW1 ([facility]) Metoclopramide 10 MG Oral Tablet Metoclopramide HCl 10 MG Metoclopramide HCl 10 MG 07/03/2019 12:00:00 AM EDT active Metoclopramide HCl 10 MG eCW1 ([facility]) ammonium lactate 120 MG/ML Topical Cream Ammonium Lact ate 12 % Ammonium Lactate 12 % 07/03/2019 12:00:00 AM EDT active 1 application eCW1 ([facility]) Metoclopramide 10 MG Oral Tablet Metoclopramide HCl 10 MG Metoclopramide HCl 10 MG 07/03/2019 12:00:00 AM EDT active Metoclopramide HCl 10 MG eCW1 ([facility]) ammonium lactate 120 MG/ML Topical Cream Ammonium Lact ate 12 % Ammonium Lactate 12 % 07/03/2019 12:00:00 AM EDT 1.0 {application} active Ammonium Lactate 12 % eCW1 ([facility]) ammonium lactate 120 MG/ML Topical Cream Ammonium Lact ate 12 % Ammonium Lactate 12 % 07/03/2019 12:00:00 AM EDT 1.0 {application} active Ammonium Lactate 12 % eCW1 ([facility]) Metoclopramide 10 MG Oral Tablet Metoclopramide HCl 10 MG Metoclopramide HCl 10 MG 07/03/2019 12:00:00 AM EDT active Metoclopramide HCl 10 MG eCW1 ([facility]) Metoclopramide 10 MG Oral Tablet Metoclopramide HCl 10 MG Metoclopramide HCl 10 MG 07/03/2019 12:00:00 AM EDT active Metoclopramide HCl 10 MG eCW1 ([facility]) ammonium lactate 120 MG/ML Topical Cream Ammonium Lact ate 12 % Ammonium Lactate 12 % 07/03/2019 12:00:00 AM EDT 1.0 {application} active Ammonium Lactate 12 % eCW1 ([facility]) Metoclopramide 10 MG Oral Tablet Metoclopramide HCl 10 MG Metoclopramide HCl 10 MG 07/03/2019 12:00:00 AM EDT active Metoclopramide HCl 10 MG eCW1 ([facility]) Metoclopramide 10 MG Oral Tablet Metoclopramide HCl 10 MG Metoclopramide HCl 10 MG 07/03/2019 12:00:00 AM EDT active Metoclopramide HCl 10 MG eCW1 ([facility]) Metoclopramide 10 MG Oral Tablet Metoclopramide HCl 10 MG Metoclopramide HCl 10 MG 07/03/2019 12:00:00 AM EDT active Metoclopramide HCl 10 MG eCW1 ([facility]) ammonium lactate 120 MG/ML Topical Cream Ammonium Lact ate 12 % Ammonium Lactate 12 % 07/03/2019 12:00:00 AM EDT 1.0 {application} active Ammonium Lactate 12 % eCW1 ([facility]) ammonium lactate 120 MG/ML Topical Cream Ammonium Lact ate 12 % Ammonium Lactate 12 % 07/03/2019 12:00:00 AM EDT 1.0 {application} active Ammonium Lactate 12 % eCW1 ([facility]) Metoclopramide 10 MG Oral Tablet Metoclopramide HCl 10 MG Metoclopramide HCl 10 MG 07/03/2019 12:00:00 AM EDT active Metoclopramide HCl 10 MG eCW1 ([facility]) ammonium lactate 120 MG/ML Topical Cream Ammonium Lact ate 12 % Ammonium Lactate 12 % 07/03/2019 12:00:00 AM EDT 1.0 {application} active Ammonium Lactate 12 % eCW1 ([facility]) ammonium lactate 120 MG/ML Topical Cream Ammonium Lact ate 12 % Ammonium Lactate 12 % 07/03/2019 12:00:00 AM EDT 1.0 {application} active Ammonium Lactate 12 % eCW1 ([facility]) ammonium lactate 120 MG/ML Topical Cream Ammonium Lact ate 12 % Ammonium Lactate 12 % 07/03/2019 12:00:00 AM EDT 1.0 {application} active Ammonium Lactate 12 % eCW1 ([facility]) ammonium lactate 120 MG/ML Topical Cream Ammonium Lact ate 12 % Ammonium Lactate 12 % 07/03/2019 12:00:00 AM EDT 1.0 {application} active Ammonium Lactate 12 % eCW1 ([facility]) ammonium lactate 120 MG/ML Topical Cream Ammonium Lact ate 12 % Ammonium Lactate 12 % 07/03/2019 12:00:00 AM EDT 1.0 {application} active Ammonium Lactate 12 % eCW1 ([facility]) ammonium lactate 120 MG/ML Topical Cream Ammonium Lact ate 12 % Ammonium Lactate 12 % 07/03/2019 12:00:00 AM EDT active 1 application eCW1 ([facility]) ammonium lactate 120 MG/ML Topical Cream Ammonium Lact ate 12 % Ammonium Lactate 12 % 07/03/2019 12:00:00 AM EDT active 1 application eCW1 ([facility]) Metoclopramide 10 MG Oral Tablet Metoclopramide HCl 10 MG Metoclopramide HCl 10 MG 07/03/2019 12:00:00 AM EDT active Metoclopramide HCl 10 MG eCW1 ([facility]) ammonium lactate 120 MG/ML Topical Cream Ammonium Lact ate 12 % Ammonium Lactate 12 % 07/03/2019 12:00:00 AM EDT 1.0 {application} active Ammonium Lactate 12 % eCW1 ([facility]) Metoclopramide 10 MG Oral Tablet Metoclopramide HCl 10 MG Metoclopramide HCl 10 MG 07/03/2019 12:00:00 AM EDT active Metoclopramide HCl 10 MG eCW1 ([facility]) ammonium lactate 120 MG/ML Topical Cream Ammonium Lact ate 12 % Ammonium Lactate 12 % 07/03/2019 12:00:00 AM EDT 1.0 {application} active Ammonium Lactate 12 % eCW1 ([facility]) Metoclopramide 10 MG Oral Tablet Metoclopramide HCl 10 MG Metoclopramide HCl 10 MG 07/03/2019 12:00:00 AM EDT active Metoclopramide HCl 10 MG eCW1 ([facility]) ammonium lactate 120 MG/ML Topical Cream Ammonium Lact ate 12 % Ammonium Lactate 12 % 07/03/2019 12:00:00 AM EDT 1.0 {application} active Ammonium Lactate 12 % eCW1 ([facility]) ammonium lactate 120 MG/ML Topical Cream Ammonium Lact ate 12 % Ammonium Lactate 12 % 07/03/2019 12:00:00 AM EDT active 1 application eCW1 ([facility]) ammonium lactate 120 MG/ML Topical Cream Ammonium Lact ate 12 % Ammonium Lactate 12 % 07/03/2019 12:00:00 AM EDT 1.0 {application} active Ammonium Lactate 12 % eCW1 ([facility]) Metoclopramide 10 MG Oral Tablet Metoclopramide HCl 10 MG Metoclopramide HCl 10 MG 07/03/2019 12:00:00 AM EDT active 1 tablet before meals and bedtime eCW1 ([facility]) Metoclopramide 10 MG Oral Tablet Metoclopramide HCl 10 MG Metoclopramide HCl 10 MG 07/03/2019 12:00:00 AM EDT active Metoclopramide HCl 10 MG eCW1 ([facility]) ammonium lactate 120 MG/ML Topical Cream Ammonium Lact ate 12 % Ammonium Lactate 12 % 07/03/2019 12:00:00 AM EDT 1.0 {application} active Ammonium Lactate 12 % eCW1 ([facility]) ammonium lactate 120 MG/ML Topical Cream Ammonium Lact ate 12 % Ammonium Lactate 12 % 07/03/2019 12:00:00 AM EDT 1.0 {application} active Ammonium Lactate 12 % eCW1 ([facility]) Metoclopramide 10 MG Oral Tablet Metoclopramide HCl 10 MG Metoclopramide HCl 10 MG 07/03/2019 12:00:00 AM EDT active Metoclopramide HCl 10 MG eCW1 ([facility]) Metoclopramide 10 MG Oral Tablet Metoclopramide HCl 10 MG Metoclopramide HCl 10 MG 07/03/2019 12:00:00 AM EDT active Metoclopramide HCl 10 MG eCW1 ([facility]) ammonium lactate 120 MG/ML Topical Cream Ammonium Lact ate 12 % Ammonium Lactate 12 % 07/03/2019 12:00:00 AM EDT 1.0 {application} active Ammonium Lactate 12 % eCW1 ([facility]) ammonium lactate 120 MG/ML Topical Cream Ammonium Lact ate 12 % Ammonium Lactate 12 % 07/03/2019 12:00:00 AM EDT 1.0 {application} active Ammonium Lactate 12 % eCW1 ([facility]) Metoclopramide 10 MG Oral Tablet Metoclopramide HCl 10 MG Metoclopramide HCl 10 MG 07/03/2019 12:00:00 AM EDT active 1 tablet before meals and bedtime eCW1 ([facility]) Metoclopramide 10 MG Oral Tablet Metoclopramide HCl 10 MG Metoclopramide HCl 10 MG 07/03/2019 12:00:00 AM EDT active Metoclopramide HCl 10 MG eCW1 ([facility]) Metoclopramide 10 MG Oral Tablet Metoclopramide HCl 10 MG Metoclopramide HCl 10 MG 07/03/2019 12:00:00 AM EDT active 1 tablet before meals and bedtime eCW1 ([facility]) Metoclopramide 10 MG Oral Tablet Metoclopramide HCl 10 MG Metoclopramide HCl 10 MG 07/03/2019 12:00:00 AM EDT active 1 tablet before meals and bedtime eCW1 ([facility]) Metoclopramide 10 MG Oral Tablet Metoclopramide HCl 10 MG Metoclopramide HCl 10 MG 07/03/2019 12:00:00 AM EDT active Metoclopramide HCl 10 MG eCW1 ([facility]) ammonium lactate 120 MG/ML Topical Cream Ammonium Lact ate 12 % Ammonium Lactate 12 % 07/03/2019 12:00:00 AM EDT active 1 application eCW1 ([facility]) ammonium lactate 120 MG/ML Topical Cream Ammonium Lact ate 12 % Ammonium Lactate 12 % 07/03/2019 12:00:00 AM EDT 1.0 {application} active Ammonium Lactate 12 % eCW1 ([facility]) ammonium lactate 120 MG/ML Topical Cream Ammonium Lact ate 12 % Ammonium Lactate 12 % 07/03/2019 12:00:00 AM EDT 1.0 {application} active Ammonium Lactate 12 % eCW1 ([facility]) ammonium lactate 120 MG/ML Topical Cream Ammonium Lact ate 12 % Ammonium Lactate 12 % 07/03/2019 12:00:00 AM EDT 1.0 {application} active Ammonium Lactate 12 % eCW1 ([facility]) ammonium lactate 120 MG/ML Topical Cream Ammonium Lact ate 12 % Ammonium Lactate 12 % 07/03/2019 12:00:00 AM EDT 1.0 {application} active Ammonium Lactate 12 % eCW1 ([facility]) Metoclopramide 10 MG Oral Tablet Metoclopramide HCl 10 MG Metoclopramide HCl 10 MG 07/03/2019 12:00:00 AM EDT active 1 tablet before meals and bedtime eCW1 ([facility]) ammonium lactate 120 MG/ML Topical Cream Ammonium Lact ate 12 % Ammonium Lactate 12 % 07/03/2019 12:00:00 AM EDT 1.0 {application} active Ammonium Lactate 12 % eCW1 ([facility]) ammonium lactate 120 MG/ML Topical Cream Ammonium Lact ate 12 % Ammonium Lactate 12 % 07/03/2019 12:00:00 AM EDT 1.0 {application} active Ammonium Lactate 12 % eCW1 ([facility]) ammonium lactate 120 MG/ML Topical Cream Ammonium Lact ate 12 % Ammonium Lactate 12 % 07/03/2019 12:00:00 AM EDT 1.0 {application} active Ammonium Lactate 12 % eCW1 ([facility]) ammonium lactate 120 MG/ML Topical Cream Ammonium Lact ate 12 % Ammonium Lactate 12 % 07/03/2019 12:00:00 AM EDT 1.0 {application} active Ammonium Lactate 12 % eCW1 ([facility]) Metoclopramide 10 MG Oral Tablet Metoclopramide HCl 10 MG Metoclopramide HCl 10 MG 07/03/2019 12:00:00 AM EDT active Metoclopramide HCl 10 MG eCW1 ([facility]) Metoclopramide 10 MG Oral Tablet Metoclopramide HCl 10 MG Metoclopramide HCl 10 MG 07/03/2019 12:00:00 AM EDT active Metoclopramide HCl 10 MG eCW1 ([facility]) Metoclopramide 10 MG Oral Tablet Metoclopramide HCl 10 MG Metoclopramide HCl 10 MG 07/03/2019 12:00:00 AM EDT active Metoclopramide HCl 10 MG eCW1 ([facility]) Metoclopramide 10 MG Oral Tablet Metoclopramide HCl 10 MG Metoclopramide HCl 10 MG 07/03/2019 12:00:00 AM EDT active Metoclopramide HCl 10 MG eCW1 ([facility]) Metoclopramide 10 MG Oral Tablet Metoclopramide HCl 10 MG Metoclopramide HCl 10 MG 07/03/2019 12:00:00 AM EDT active Metoclopramide HCl 10 MG eCW1 ([facility]) Metoclopramide 10 MG Oral Tablet Metoclopramide HCl 10 MG Metoclopramide HCl 10 MG 07/03/2019 12:00:00 AM EDT active Metoclopramide HCl 10 MG eCW1 ([facility]) 4 mg 06/25/2019 12:00:00 AM EDT tablet [...] DAY NEEDED SOLD: 06/25/2019 [facility] 33 gauge 06/25/2019 12:00:00 AM EDT misc 100 USE DIRECTED FOUR TIMES A DAY NEEDED USE DIRECTED FOUR TIMES A DAY NEEDED SOLD: 01/19/2020 [facility] BLOOD SUGAR DIAGNOSTIC 06/25/2019 12:00:00 AM EDT strip 100 TEST FOUR TIMES A DAY NEEDED TEST FOUR TIMES A DAY NEEDED SOLD: 02/10/2020 [facility] 33 gauge 06/25/2019 12:00:00 AM EDT misc 200 USE DIRECTED FOUR TIMES A DAY NEEDED USE DIRECTED FOUR TIMES A DAY NEEDED SOLD: 06/25/2019 [facility] BLOOD SUGAR DIAGNOSTIC 06/25/2019 12:00:00 AM EDT strip 100 TEST FOUR TIMES A DAY NEEDED TEST FOUR TIMES A DAY NEEDED SOLD: 01/18/2020 [facility] 33 gauge 06/25/2019 12:00:00 AM EDT misc 100 USE DIRECTED FOUR TIMES A DAY NEEDED USE DIRECTED FOUR TIMES A DAY NEEDED SOLD: 10/25/2019 [facility] 33 gauge 06/25/2019 12:00:00 AM EDT misc 100 USE DIRECTED FOUR TIMES A DAY NEEDED USE DIRECTED FOUR TIMES A DAY NEEDED SOLD: 11/16/2019 [facility] Cholecalciferol 1000 UNT Oral Tablet Vitamin D3 06/25/2019 12:00:00 A M EDT active [facility] ([facility] BLOOD SUGAR DIAGNOSTIC 06/25/2019 12:00:00 [...] 06/24/2019 12:00:00 AM EDT active Glucometer eCW1 ([facility]) Test Strips - UNK 06/24/2019 12:00:00 AM EDT acti ve Test Strips - eCW1 ([facility]ly [facility]) Lancets Misc. - UNK 06/24/2019 12:00:00 AM EDT active Lancets Misc. - eCW1 ([facility]) Lancets Misc. - UNK 06/24/2019 12:00:00 AM EDT active Lancets Misc. - eCW1 ([facility]) Lancets Misc. - UNK 06/24/2019 12:00:00 AM EDT active Lancets Misc. - eCW1 ([facility]) Glucometer UNK 06/24/2019 12:00:00 AM EDT active testing 4 times a day and as needed eCW1 ([facility]) Lancets Misc. - UNK 06/24/2019 12:00:00 AM EDT active Lancets Misc. - eCW1 ([facility]) Glucometer UNK 06/24/2019 12:00:00 AM EDT active Glucometer eCW1 ([facility]) Lancets Misc. - UNK 06/24/2019 12:00:00 AM EDT active Lancets Misc. - eCW1 ([facility]) Test Strips - UNK 06/24/2019 12:00:00 AM EDT acti ve Test Strips - eCW1 ([facility]) Test Strips - UNK 06/24/2019 12:00:00 AM EDT acti ve Test Strips - eCW1 ([facility]) Glucometer UNK 06/24/2019 12:00:00 AM EDT active Glucometer eCW1 ([facility]) Test Strips - UNK 06/24/2019 12:00:00 AM EDT acti ve Test Strips - eCW1 ([facility]) Glucometer UNK 06/24/2019 12:00:00 AM EDT active Glucometer eCW1 ([facility]) Glucometer UNK 06/24/2019 12:00:00 AM EDT active Glucometer eCW1 ([facility]) Test Strips - UNK 06/24/2019 12:00:00 AM EDT acti ve Test Strips - eCW1 ([facility]) Lancets Misc. - UNK 06/24/2019 12:00:00 AM EDT active Lancets Misc. - eCW1 ([facility]) Glucometer UNK 06/24/2019 12:00:00 AM EDT active testing 4 times a day and as needed eCW1 ([facility]) Test Strips - UNK 06/24/2019 12:00:00 AM EDT acti ve Test Strips - eCW1 ([facility]) Glucometer UNK 06/24/2019 12:00:00 AM EDT active Glucometer eCW1 ([facility]) Test Strips - UNK 06/24/2019 12:00:00 AM EDT acti ve Test Strips - eCW1 ([facility]) Test Strips - UNK 06/24/2019 12:00:00 AM EDT acti ve Test Strips - eCW1 ([facility]) Lancets Misc. - UNK 06/24/2019 12:00:00 AM EDT active Lancets Misc. - eCW1 ([facility]) Test Strips - UNK 06/24/2019 12:00:00 AM EDT acti ve Test Strips - eCW1 ([facility]) Test Strips - UNK 06/24/2019 12:00:00 AM EDT acti ve Test Strips - eCW1 ([facility]) Lancets Misc. - UNK 06/24/2019 12:00:00 AM EDT active Lancets Misc. - eCW1 ([facility]) Test Strips - UNK 06/24/2019 12:00:00 AM EDT acti ve Test Strips - eCW1 ([facility]) Test Strips - UNK 06/24/2019 12:00:00 AM EDT acti ve Test Strips - eCW1 ([facility]) Test Strips - UNK 06/24/2019 12:00:00 AM EDT acti ve Test Strips - eCW1 ([facility]) Glucometer UNK 06/24/2019 12:00:00 AM EDT active testing 4 times a day and as needed eCW1 ([facility]) Test Strips - UNK 06/24/2019 12:00:00 AM EDT acti ve Test Strips - eCW1 ([facility]) Test Strips - UNK 06/24/2019 12:00:00 AM EDT acti ve Test Strips - eCW1 ([facility]) Lancets Misc. - UNK 06/24/2019 12:00:00 AM EDT active Lancets Misc. - eCW1 ([facility]) Test Strips - UNK 06/24/2019 12:00:00 AM EDT acti ve Test Strips - eCW1 ([facility]) Glucometer UNK 06/24/2019 12:00:00 AM EDT active Glucometer eCW1 ([facility]) Test Strips - UNK 06/24/2019 12:00:00 AM EDT acti ve Test Strips - eCW1 ([facility]) Test Strips - UNK 06/24/2019 12:00:00 AM EDT acti ve Test Strips - eCW1 ([facility]) Test Strips - UNK 06/24/2019 12:00:00 AM EDT acti ve Test Strips - eCW1 ([facility]) Test Strips - UNK 06/24/2019 12:00:00 AM EDT acti ve Test Strips - eCW1 ([facility]) Lancets Misc. - UNK 06/24/2019 12:00:00 AM EDT active Lancets Misc. - eCW1 ([facility]) Test Strips - UNK 06/24/2019 12:00:00 AM EDT acti ve Test Strips - eCW1 ([facility]) Test Strips - UNK 06/24/2019 12:00:00 AM EDT acti ve Test Strips - eCW1 ([facility]) Test Strips - UNK 06/24/2019 12:00:00 AM EDT acti ve Test Strips - eCW1 ([facility]) Test Strips - UNK 06/24/2019 12:00:00 AM EDT acti ve Test Strips - eCW1 ([facility]) Test Strips - UNK 06/24/2019 12:00:00 AM EDT acti ve Test Strips - eCW1 ([facility]) Lancets Misc. - UNK 06/24/2019 12:00:00 AM EDT active Lancets Misc. - eCW1 ([facility]) Lancets Misc. - UNK 06/24/2019 12:00:00 AM EDT active Lancets Misc. - eCW1 ([facility]) Test Strips - UNK 06/24/2019 12:00:00 AM EDT acti ve Test Strips - eCW1 ([facility]) Glucometer UNK 06/24/2019 12:00:00 AM EDT active Glucometer eCW1 ([facility]) Test Strips - UNK 06/24/2019 12:00:00 AM EDT acti ve Test Strips - eCW1 ([facility]) Glucometer UNK 06/24/2019 12:00:00 AM EDT active Glucometer eCW1 ([facility]) Glucometer UNK 06/24/2019 12:00:00 AM EDT active Glucometer eCW1 ([facility]) Lancets Misc. - UNK 06/24/2019 12:00:00 AM EDT active Lancets Misc. - eCW1 ([facility]) Lancets Misc. - UNK 06/24/2019 12:00:00 AM EDT active Lancets Misc. - eCW1 ([facility]) Glucometer UNK 06/24/2019 12:00:00 AM EDT active Glucometer eCW1 ([facility]) Lancets Misc. - UNK 06/24/2019 12:00:00 AM EDT active Lancets Misc. - eCW1 ([facility]) Test Strips - UNK 06/24/2019 12:00:00 AM EDT acti ve Test Strips - eCW1 ([facility]) Lancets Misc. - UNK 06/24/2019 12:00:00 AM EDT active Lancets Misc. - eCW1 ([facility]) Test Strips - UNK 06/24/2019 12:00:00 AM EDT acti ve Test Strips - eCW1 ([facility]) Glucometer UNK 06/24/2019 12:00:00 AM EDT active Glucometer eCW1 ([facility]) Glucometer UNK 06/24/2019 12:00:00 AM EDT active Glucometer eCW1 ([facility]) Glucometer UNK 06/24/2019 12:00:00 AM EDT active Glucometer eCW1 ([facility]) Lancets Misc. - UNK 06/24/2019 12:00:00 AM EDT active Lancets Misc. - eCW1 ([facility]) Test Strips - UNK 06/24/2019 12:00:00 AM EDT acti ve - eCW1 ([facility]) Test Strips - UNK 06/24/2019 12:00:00 AM EDT acti ve Test Strips - eCW1 (Formerly [facility]) Test Strips - UNK 06/24/2019 12:00:00 AM EDT acti ve Test Strips - eCW1 (Formerly [facility]) Hydromorphone Hydrochloride 4 MG Oral Tablet Hydromorp nellie HCl 4 MG Hydromorphone HCl 4 MG 06/24/2019 12:00:00 AM EDT active 3 tablets eCW1 (Formerly [facility]) Test Strips - UNK 06/24/2019 12:00:00 AM EDT acti ve Test Strips - eCW1 (Formerly [facility]) Glucometer UNK 06/24/2019 12:00:00 AM EDT active Glucometer eCW1 (Formerly [facility]) Glucometer UNK 06/24/2019 12:00:00 AM EDT active Glucometer eCW1 (Formerly [facility]) Lancets Misc. - UNK 06/24/2019 12:00:00 AM EDT active Lancets Misc. - eCW1 (Formerly [facility]) Glucometer UNK 06/24/2019 12:00:00 AM EDT active Glucometer eCW1 (Formerly [facility]) Test Strips - UNK 06/24/2019 12:00:00 AM EDT acti ve Test Strips - eCW1 (Formerly [facility]) Glucometer UNK 06/24/2019 12:00:00 AM EDT active Glucometer eCW1 (Formerly [facility]) Lancets Misc. - UNK 06/24/2019 12:00:00 AM EDT active Lancets Misc. - eCW1 (Formerly [facility]) Test Strips - UNK 06/24/2019 12:00:00 AM EDT acti ve Test Strips - eCW1 (Formerly [facility]) Lancets Misc. - UNK 06/24/2019 12:00:00 AM EDT active Lancets Misc. - eCW1 (Formerly [facility]) Lancets Misc. - UNK 06/24/2019 12:00:00 AM EDT active Lancets Misc. - eCW1 ([facility]ly [facility]) Glucometer UNK 06/24/2019 12:00:00 AM EDT active Glucometer eCW1 ([facility]ly [facility]) Lancets Misc. - UNK 06/24/2019 12:00:00 AM EDT active Lancets Misc. - eCW1 ([facility]ly [facility]) Test Strips - UNK 06/24/2019 12:00:00 AM EDT acti ve Test Strips - eCW1 ([facility]ly [facility]) Test Strips - UNK 06/24/2019 12:00:00 AM EDT acti ve Test Strips - eCW1 ([facility]ly [facility]) Glucometer UNK 06/24/2019 12:00:00 AM EDT active Glucometer eCW1 ([facility]ly [facility]) Test Strips - UNK 06/24/2019 12:00:00 AM EDT acti ve Test Strips - eCW1 ([facility]ly [facility]) Glucometer UNK 06/24/2019 12:00:00 AM EDT active Glucometer eCW1 ([facility]ly [facility]) Glucometer UNK 06/24/2019 12:00:00 AM EDT active testing 4 times a day and as needed eCW1 ([facility]ly [facility]) Lancets Misc. - UNK 06/24/2019 12:00:00 AM EDT active Lancets Misc. - eCW1 ([facility]ly [facility]) Glucometer UNK 06/24/2019 12:00:00 AM EDT active Glucometer eCW1 ([facility]ly [facility]) Glucometer UNK 06/24/2019 12:00:00 AM EDT active Glucometer eCW1 ([facility]ly [facility]) Lancets Misc. - UNK 06/24/2019 12:00:00 AM EDT active Lancets Misc. - eCW1 ([facility]ly [facility]) Test Strips - UNK 06/24/2019 12:00:00 AM EDT acti ve - eCW1 ([facility]ly [facility]) Glucometer UNK 06/24/2019 12:00:00 AM EDT active Glucometer eCW1 ([facility]) Glucometer UNK 06/24/2019 12:00:00 AM EDT active Glucometer eCW1 ([facility]) Glucometer UNK 06/24/2019 12:00:00 AM EDT active Glucometer eCW1 ([facility]) Lancets Misc. - UNK 06/24/2019 12:00:00 AM EDT active Lancets Misc. - eCW1 ([facility]ly [facility]) Glucometer UNK 06/24/2019 12:00:00 AM EDT active Glucometer eCW1 ([facility]ly [facility]) Test Strips - UNK 06/24/2019 12:00:00 AM EDT acti ve Test Strips - eCW1 ([facility]ly [facility]) Test Strips - UNK 06/24/2019 12:00:00 AM EDT acti ve - eCW1 ([facility]ly [facility]) Glucometer UNK 06/24/2019 12:00:00 AM EDT active Glucometer eCW1 ([facility]) Glucometer UNK 06/24/2019 12:00:00 AM EDT active Glucometer eCW1 ([facility]) Lancets Misc. - UNK 06/24/2019 12:00:00 AM EDT active Lancets Misc. - eCW1 ([facility]) Glucometer UNK 06/24/2019 12:00:00 AM EDT active Glucometer eCW1 ([facility]) Test Strips - UNK 06/24/2019 12:00:00 AM EDT acti ve Test Strips - eCW1 ([facility]ly [facility]) Lancets Misc. - UNK 06/24/2019 12:00:00 AM EDT active Lancets Misc. - eCW1 ([facility]) Glucometer UNK 06/24/2019 12:00:00 AM EDT active Glucometer eCW1 ([facility]) Glucometer UNK 06/24/2019 12:00:00 AM EDT active Glucometer eCW1 ([facility]) Lancets Misc. - UNK 06/24/2019 12:00:00 AM EDT active Lancets Misc. - eCW1 ([facility]) Lancets Misc. - UNK 06/24/2019 12:00:00 AM EDT active Lancets Misc. - eCW1 ([facility]) Test Strips - UNK 06/24/2019 12:00:00 AM EDT acti ve Test Strips - eCW1 ([facility]) Glucometer UNK 06/24/2019 12:00:00 AM EDT active Glucometer eCW1 ([facility]) Glucometer UNK 06/24/2019 12:00:00 AM EDT active Glucometer eCW1 ([facility]) Lancets Misc. - UNK 06/24/2019 12:00:00 AM EDT active Lancets Misc. - eCW1 ([facility]) Test Strips - UNK 06/24/2019 12:00:00 AM EDT acti ve Test Strips - eCW1 ([facility]ly [facility]) Lancets Misc. - UNK 06/24/2019 12:00:00 AM EDT active Lancets Misc. - eCW1 ([facility]) Test Strips - UNK 06/24/2019 12:00:00 AM EDT acti ve Test Strips - eCW1 ([facility]) Glucometer UNK 06/24/2019 12:00:00 AM EDT active Glucometer eCW1 ([facility]) Glucometer UNK 06/24/2019 12:00:00 AM EDT active Glucometer eCW1 ([facility]) Test Strips - UNK 06/24/2019 12:00:00 AM EDT acti ve Test Strips - eCW1 ([facility]) Glucometer UNK 06/24/2019 12:00:00 AM EDT active Glucometer eCW1 ([facility]) Lancets Misc. - UNK 06/24/2019 12:00:00 AM EDT active Lancets Misc. - eCW1 ([facility]) Test Strips - UNK 06/24/2019 12:00:00 AM EDT acti ve Test Strips - eCW1 ([facility]) Glucometer UNK 06/24/2019 12:00:00 AM EDT active Glucometer eCW1 ([facility]) Glucometer UNK 06/24/2019 12:00:00 AM EDT active Glucometer eCW1 ([facility]) Lancets Misc. - UNK 06/24/2019 12:00:00 AM EDT active Lancets Misc. - eCW1 ([facility]) Glucometer UNK 06/24/2019 12:00:00 AM EDT active Glucometer eCW1 ([facility]) Glucometer UNK 06/24/2019 12:00:00 AM EDT active Glucometer eCW1 ([facility]) Glucometer UNK 06/24/2019 12:00:00 AM EDT active Glucometer eCW1 ([facility]) Glucometer UNK 06/24/2019 12:00:00 AM EDT active Glucometer eCW1 ([facility]) Lancets Misc. - UNK 06/24/2019 12:00:00 AM EDT active Lancets Misc. - eCW1 ([facility]) Lancets Misc. - UNK 06/24/2019 12:00:00 AM EDT active Lancets Misc. - eCW1 ([facility]) Test Strips - K 06/24/2019 12:00:00 AM EDT acti ve - eCW1 ([facility]ly [facility]) Test Strips - UNK 06/24/2019 12:00:00 AM EDT acti ve - eCW1 ([facility]ly [facility]) Glucometer UNK 06/24/2019 12:00:00 AM EDT active testing 4 times a day and as needed eCW1 ([facility]) Lancets Misc. - UNK 06/24/2019 12:00:00 AM EDT active Lancets Misc. - eCW1 ([facility]) Lancets Misc. - UNK 06/24/2019 12:00:00 AM EDT active Lancets Misc. - eCW1 ([facility]) Lancets Misc. - UNK 06/24/2019 12:00:00 AM EDT active Lancets Misc. - eCW1 ([facility]) Test Strips - K 06/24/2019 12:00:00 AM EDT acti ve - eCW1 ([facility]ly [facility]) Glucometer UNK 06/24/2019 12:00:00 AM EDT active Glucometer eCW1 ([facility]ly [facility]) Lancets Misc. - UNK 06/24/2019 12:00:00 AM EDT ac tive - eCW1 ([facility]ly [facility]) Test Strips - UNK 06/24/2019 12:00:00 AM EDT acti ve Test Strips - eCW1 ([facility]) Test Strips - UNK 06/24/2019 12:00:00 AM EDT acti ve Test Strips - eCW1 ([facility]) Test Strips - UNK 06/24/2019 12:00:00 AM EDT acti ve - eCW1 ([facility]ly [facility]) Lancets Misc. - UNK 06/24/2019 12:00:00 AM EDT ac tive - eCW1 ([facility]ly [facility]) Lancets Misc. - UNK 06/24/2019 12:00:00 AM EDT active Lancets Misc. - eCW1 ([facility]) Test Strips - UNK 06/24/2019 12:00:00 AM EDT acti ve Test Strips - eCW1 ([facility]) Lancets Misc. - UNK 06/24/2019 12:00:00 AM EDT active Lancets Misc. - eCW1 ([facility]) Test Strips - UNK 06/24/2019 12:00:00 AM EDT acti ve Test Strips - eCW1 ([facility]) Lancets Misc. - UNK 06/24/2019 12:00:00 AM EDT active Lancets Misc. - eCW1 ([facility]) Test Strips - UNK 06/24/2019 12:00:00 AM EDT acti ve Test Strips - eCW1 ([facility]) Glucometer UNK 06/24/2019 12:00:00 AM EDT active Glucometer eCW1 ([facility]) Glucometer UNK 06/24/2019 12:00:00 AM EDT active testing 4 times a day and as needed eCW1 ([facility]) Glucometer UNK 06/24/2019 12:00:00 AM EDT active Glucometer eCW1 ([facility]) Test Strips - UNK 06/24/2019 12:00:00 AM EDT acti ve Test Strips - eCW1 ([facility]) Lancets Misc. - UNK 06/24/2019 12:00:00 AM EDT active Lancets Misc. - eCW1 ([facility]) Glucometer UNK 06/24/2019 12:00:00 AM EDT active Glucometer eCW1 ([facility]) Glucometer UNK 06/24/2019 12:00:00 AM EDT active Glucometer eCW1 ([facility]) Glucometer UNK 06/24/2019 12:00:00 AM EDT active Glucometer eCW1 ([facility]) Lancets Misc. - UNK 06/24/2019 12:00:00 AM EDT active Lancets Misc. - eCW1 ([facility]) Lancets Misc. - UNK 06/24/2019 12:00:00 AM EDT active Lancets Misc. - eCW1 ([facility]ly [facility]) Hydromorphone Hydrochloride 4 MG Oral Tablet Hydromorp nellie HCl 4 MG Hydromorphone HCl 4 MG 06/24/2019 12:00:00 AM EDT active 3 tablets eCW1 ([facility]ly [facility]) Lancets Misc. - UNK 06/24/2019 12:00:00 AM EDT active Lancets Misc. - eCW1 ([facility]) Glucometer UNK 06/24/2019 12:00:00 AM EDT active Glucometer eCW1 ([facility]) Lancets Misc. - UNK 06/24/2019 12:00:00 AM EDT active Lancets Misc. - eCW1 ([facility]) Lancets Misc. - UNK 06/24/2019 12:00:00 AM EDT ac tive - eCW1 ([facility]ly [facility]) Test Strips - UNK 06/24/2019 12:00:00 AM EDT acti ve Test Strips - eCW1 ([facility]ly [facility]) Glucometer UNK 06/24/2019 12:00:00 AM EDT active Glucometer eCW1 ([facility]) Lancets Misc. - UNK 06/24/2019 12:00:00 AM EDT active Lancets Misc. - eCW1 ([facility]) Glucometer UNK 06/24/2019 12:00:00 AM EDT active Glucometer eCW1 ([facility]) Test Strips - UNK 06/24/2019 12:00:00 AM EDT acti ve Test Strips - eCW1 ([facility]) Glucometer UNK 06/24/2019 12:00:00 AM EDT active Glucometer eCW1 ([facility]) Glucometer UNK 06/24/2019 12:00:00 AM EDT active Glucometer eCW1 ([facility]) Test Strips - UNK 06/24/2019 12:00:00 AM EDT acti ve Test Strips - eCW1 ([facility]) Test Strips - UNK 06/24/2019 12:00:00 AM EDT acti ve Test Strips - eCW1 ([facility]) Test Strips - UNK 06/24/2019 12:00:00 AM EDT acti ve Test Strips - eCW1 ([facility]) Test Strips - UNK 06/24/2019 12:00:00 AM EDT acti ve Test Strips - eCW1 ([facility]) Lancets Misc. - UNK 06/24/2019 12:00:00 AM EDT active Lancets Misc. - eCW1 ([facility]) Lancets Misc. - UNK 06/24/2019 12:00:00 AM EDT active Lancets Misc. - eCW1 ([facility]) Lancets Misc. - UNK 06/24/2019 12:00:00 AM EDT active Lancets Misc. - eCW1 ([facility]) Lancets Misc. - UNK 06/24/2019 12:00:00 AM EDT active Lancets Misc. - eCW1 ([facility]) Lancets Misc. - UNK 06/24/2019 12:00:00 AM EDT active Lancets Misc. - eCW1 ([facility]) Test Strips - UNK 06/24/2019 12:00:00 AM EDT acti ve Test Strips - eCW1 ([facility]) Glucometer UNK 06/24/2019 12:00:00 AM EDT active testing 4 times a day and as needed eCW1 ([facility]) Lancets Misc. - UNK 06/24/2019 12:00:00 AM EDT active Lancets Misc. - eCW1 ([facility]) Lancets Misc. - UNK 06/24/2019 12:00:00 AM EDT active Lancets Misc. - eCW1 ([facility]) Glucometer UNK 06/24/2019 12:00:00 AM EDT active Glucometer eCW1 ([facility]) Test Strips - UNK 06/24/2019 12:00:00 AM EDT acti ve Test Strips - eCW1 ([facility]) Glucometer UNK 06/24/2019 12:00:00 AM EDT active Glucometer eCW1 ([facility]) Test Strips - UNK 06/24/2019 12:00:00 AM EDT acti ve Test Strips - eCW1 ([facility]) Test Strips - UNK 06/24/2019 12:00:00 AM EDT acti ve Test Strips - eCW1 ([facility]) Glucometer UNK 06/24/2019 12:00:00 AM EDT active Glucometer eCW1 ([facility]) Glucometer UNK 06/24/2019 12:00:00 AM EDT active testing 4 times a day and as needed eCW1 ([facility]) Glucometer UNK 06/24/2019 12:00:00 AM EDT active Glucometer eCW1 ([facility]) Test Strips - UNK 06/24/2019 12:00:00 AM EDT acti ve Test Strips - eCW1 ([facility]) Glucometer UNK 06/24/2019 12:00:00 AM EDT active Glucometer eCW1 ([facility]) Glucometer UNK 06/24/2019 12:00:00 AM EDT active Glucometer eCW1 ([facility]) Glucometer UNK 06/24/2019 12:00:00 AM EDT active testing 4 times a day and as needed eCW1 ([facility]) Lancets Misc. - UNK 06/24/2019 12:00:00 AM EDT active Lancets Misc. - eCW1 ([facility]ly [facility]) Lancets Misc. - UNK 06/24/2019 12:00:00 AM EDT active Lancets Misc. - eCW1 ([facility]ly [facility]) Glucometer UNK 06/24/2019 12:00:00 AM EDT active Glucometer eCW1 ([facility]ly [facility]) Test Strips - UNK 06/24/2019 12:00:00 AM EDT acti ve Test Strips - eCW1 ([facility]ly [facility]) Test Strips - UNK 06/24/2019 12:00:00 AM EDT acti ve Test Strips - eCW1 ([facility]) Glucometer UNK 06/24/2019 12:00:00 AM EDT active Glucometer eCW1 ([facility]ly [facility]) Lancets Misc. - UNK 06/24/2019 12:00:00 AM EDT active Lancets Misc. - eCW1 ([facility]) Test Strips - UNK 06/24/2019 12:00:00 AM EDT acti ve Test Strips - eCW1 ([facility]ly [facility]) Lancets Misc. - UNK 06/24/2019 12:00:00 AM EDT active Lancets Misc. - eCW1 ([facility]) Lancets Misc. - UNK 06/24/2019 12:00:00 AM EDT active Lancets Misc. - eCW1 ([facility]) Lancets Misc. - UNK 06/24/2019 12:00:00 AM EDT active Lancets Misc. - eCW1 ([facility]) Test Strips - UNK 06/24/2019 12:00:00 AM EDT acti ve Test Strips - eCW1 ([facility]) Glucometer UNK 06/24/2019 12:00:00 AM EDT active Glucometer eCW1 ([facility]) Lancets Misc. - UNK 06/24/2019 12:00:00 AM EDT active Lancets Misc. - eCW1 ([facility]) Glucometer UNK 06/24/2019 12:00:00 AM EDT active Glucometer eCW1 ([facility]) Glucometer UNK 06/24/2019 12:00:00 AM EDT active Glucometer eCW1 ([facility]) Lancets Misc. - UNK 06/24/2019 12:00:00 AM EDT active Lancets Misc. - eCW1 ([facility]) Test Strips - UNK 06/24/2019 12:00:00 AM EDT acti ve Test Strips - eCW1 ([facility]ly [facility]) Test Strips - UNK 06/24/2019 12:00:00 AM EDT acti ve Test Strips - eCW1 ([facility]) Test Strips - UNK 06/24/2019 12:00:00 AM EDT acti ve Test Strips - eCW1 ([facility]ly [facility]) Lancets Misc. - UNK 06/24/2019 12:00:00 AM EDT active Lancets Misc. - eCW1 ([facility]) Test Strips - UNK 06/24/2019 12:00:00 AM EDT acti ve Test Strips - eCW1 ([facility]ly [facility]) Lancets Misc. - UNK 06/24/2019 12:00:00 AM EDT ac tive - eCW1 ([facility]ly [facility]) Glucometer UNK 06/24/2019 12:00:00 AM EDT active Glucometer eCW1 ([facility]ly [facility]) Lancets Misc. - UNK 06/24/2019 12:00:00 AM EDT active Lancets Misc. - eCW1 ([facility]) Glucometer UNK 06/24/2019 12:00:00 AM EDT active Glucometer eCW1 ([facility]) Glucometer UNK 06/24/2019 12:00:00 AM EDT active Glucometer eCW1 ([facility]) Lancets Misc. - UNK 06/24/2019 12:00:00 AM EDT ac tive - eCW1 ([facility]ly [facility]) Lancets Misc. - UNK 06/24/2019 12:00:00 AM EDT active Lancets Misc. - eCW1 ([facility]) Test Strips - UNK 06/24/2019 12:00:00 AM EDT acti ve Test Strips - eCW1 ([facility]ly [facility]) Test Strips - UNK 06/24/2019 12:00:00 AM EDT acti ve - eCW1 ([facility]ly [facility]) Lancets Misc. - UNK 06/24/2019 12:00:00 AM EDT active Lancets Misc. - eCW1 ([facility]) Glucometer UNK 06/24/2019 12:00:00 AM EDT active Glucometer eCW1 ([facility]) Lancets Misc. - UNK 06/24/2019 12:00:00 AM EDT ac tive - eCW1 ([facility]ly [facility]) Glucometer UNK 06/24/2019 12:00:00 AM EDT active Glucometer eCW1 ([facility]) Lancets Misc. - UNK 06/24/2019 12:00:00 AM EDT ac tive - eCW1 ([facility]) Glucometer UNK 06/24/2019 12:00:00 AM EDT active testing 4 times a day and as needed eCW1 ([facility]) Lancets Misc. - UNK 06/24/2019 12:00:00 AM EDT active Lancets Misc. - eCW1 ([facility]) Lancets Misc. - UNK 06/24/2019 12:00:00 AM EDT active Lancets Misc. - eCW1 ([facility]) Lancets Misc. - UNK 06/24/2019 12:00:00 AM EDT ac tive - eCW1 ([facility]ly [facility]) Glucometer UNK 06/24/2019 12:00:00 AM EDT active Glucometer eCW1 ([facility]) Lancets Misc. - UNK 06/24/2019 12:00:00 AM EDT active Lancets Misc. - eCW1 ([facility]) Lancets Misc. - UNK 06/24/2019 12:00:00 AM EDT active Lancets Misc. - eCW1 ([facility]) Lancets Misc. - UNK 06/24/2019 12:00:00 AM EDT ac tive - eCW1 ([facility]ly [facility]) Test Strips - K 06/24/2019 12:00:00 AM EDT acti ve Test Strips - eCW1 ([facility]ly [facility]) Test Strips - K 06/24/2019 12:00:00 AM EDT acti ve Test Strips - eCW1 ([facility]) Test Strips - UNK 06/24/2019 12:00:00 AM EDT acti ve Test Strips - eCW1 ([facility]) Lancets Misc. - UNK 06/24/2019 12:00:00 AM EDT active Lancets Misc. - eCW1 ([facility]) Lancets Misc. - UNK 06/24/2019 12:00:00 AM EDT active Lancets Misc. - eCW1 ([facility]) Lancets Misc. - UNK 06/24/2019 12:00:00 AM EDT ac tive - eCW1 ([facility]ly [facility]) Glucometer UNK 06/24/2019 12:00:00 AM EDT active Glucometer eCW1 ([facility]ly [facility]) Lancets Misc. - UNK 06/24/2019 12:00:00 AM EDT active Lancets Misc. - eCW1 ([facility]) Test Strips - K 06/24/2019 12:00:00 AM EDT acti ve - eCW1 ([facility]ly [facility]) Test Strips - UNK 06/24/2019 12:00:00 AM EDT acti ve - eCW1 ([facility]ly [facility]) Glucometer UNK 06/24/2019 12:00:00 AM EDT active Glucometer eCW1 ([facility]ly [facility]) Hydromorphone Hydrochloride 4 MG Oral Tablet Hydromorp nellie HCl 4 MG Hydromorphone HCl 4 MG 06/17/2019 12:00:00 AM EST active 3 tablets eCW1 ([facility]) 2 % 06/17/2019 12:00:00 AM EST ointment [...] active Hydromorphone HCl 4 MG eCW1 ([facility]) Hydromorphone Hydrochloride 4 MG Oral Tablet Hydromorp nellie HCl 4 MG Hydromorphone HCl 4 MG 06/17/2019 12:00:00 AM EST active 3 tablets eCW1 ([facility]) 4 mg 06/17/2019 12:00:00 AM EST tablet [...] 12:00:00 AM EST active 3 tablets eCW1 ([facility]) 4 mg 06/11/2019 12:00:00 AM EST tablet [...] 12:00:00 AM EST active 3 tablets eCW1 ([facility]ly [facility]) 4 mg 06/04/2019 12:00:00 AM EST tablet 168 TAKE 3 TABLETS BY MOUTH EVERY 3 HOURS NEEDED MAXIMUM DAILY DOSE = 24 TABLETS TAKE 3 TABLETS BY MOUTH EVERY 3 HOURS NEEDED MAXIMUM DAILY DOSE = 24 TABLETS SOLD: 06/04/2019 [facility] bed UNK 06/02/2019 12:00:00 AM EST activ e Hospital bed eCW1 ([facility]ly [facility]) Hospital bed UNK 06/02/2019 12:00:00 AM EST activ e Hospital bed eCW1 ([facility]ly [facility]) Hospital bed UNK 06/02/2019 12:00:00 AM EST activ e Hospital bed eCW1 ([facility]ly [facility]) Hospital bed UNK 06/02/2019 12:00:00 AM EST activ e Hospital bed eCW1 ([facility]) Hospital bed UNK 06/02/2019 12:00:00 AM EST activ e Hospital bed eCW1 ([facility]) Hospital bed UNK 06/02/2019 12:00:00 AM EST activ e Hospital bed eCW1 ([facility]) Hospital bed UNK 06/02/2019 12:00:00 AM EST activ e use daily eCW1 ([facility]ly [facility]) Hospital bed UNK 06/02/2019 12:00:00 AM EST activ e Hospital bed eCW1 ([facility]) Hospital bed UNK 06/02/2019 12:00:00 AM EST activ e Hospital bed eCW1 ([facility]) Hospital bed UNK 06/02/2019 12:00:00 AM EST activ e Hospital bed eCW1 ([facility]) Hospital bed UNK 06/02/2019 12:00:00 AM EST activ e Hospital bed eCW1 ([facility]) Hospital bed UNK 06/02/2019 12:00:00 AM EST activ e Hospital bed eCW1 ([facility]) Hospital bed UNK 06/02/2019 12:00:00 AM EST activ e Hospital bed eCW1 (Formerly [facility]) Hospital bed UNK 06/02/2019 12:00:00 AM EST activ e Hospital bed eCW1 (Formerly [facility]) Hospital bed UNK 06/02/2019 12:00:00 AM EST activ e Hospital bed eCW1 ([facility]ly [facility]) Hospital bed UNK 06/02/2019 12:00:00 AM EST activ e Hospital bed eCW1 ([facility]ly [facility]) Hospital bed UNK 06/02/2019 12:00:00 AM EST activ e Hospital bed eCW1 ([facility]ly [facility]) Hospital bed UNK 06/02/2019 12:00:00 AM EST activ e Hospital bed eCW1 ([facility]ly [facility]) Hospital bed UNK 06/02/2019 12:00:00 AM EST activ e use daily eCW1 ([facility]ly [facility]) Hospital bed UNK 06/02/2019 12:00:00 AM EST activ e Hospital bed eCW1 ([facility]ly [facility]) Hospital bed UNK 06/02/2019 12:00:00 AM EST activ e Hospital bed eCW1 ([facility]ly [facility]) Hospital bed UNK 06/02/2019 12:00:00 AM EST activ e Hospital bed eCW1 ([facility]ly [facility]) Hospital bed UNK 06/02/2019 12:00:00 AM EST activ e use daily eCW1 ([facility]ly [facility]) Hospital bed UNK 06/02/2019 12:00:00 AM EST activ e Hospital bed eCW1 ([facility]ly [facility]) Hospital bed UNK 06/02/2019 12:00:00 AM EST activ e Hospital bed eCW1 ([facility]ly [facility]) Hospital bed UNK 06/02/2019 12:00:00 AM EST activ e Hospital bed eCW1 ([facility]ly [facility]) Hospital bed UNK 06/02/2019 12:00:00 AM EST activ e Hospital bed eCW1 ([facility]ly [facility]) Hospital bed UNK 06/02/2019 12:00:00 AM EST activ e use daily eCW1 ([facility]ly [facility]) Hospital bed UNK 06/02/2019 12:00:00 AM EST activ e Hospital bed eCW1 ([facility]ly [facility]) Hospital bed UNK 06/02/2019 12:00:00 AM EST activ e Hospital bed eCW1 ([facility]ly [facility]) Hospital bed UNK 06/02/2019 12:00:00 AM EST activ e use daily eCW1 ([facility]ly [facility]) Hospital bed UNK 06/02/2019 12:00:00 AM EST activ e use daily eCW1 ([facility]ly [facility]) Hospital bed UNK 06/02/2019 12:00:00 AM EST activ e Hospital bed eCW1 ([facility]ly [facility]) Hospital bed UNK 06/02/2019 12:00:00 AM EST activ e Hospital bed eCW1 ([facility]ly [facility]) Hospital bed UNK 06/02/2019 12:00:00 AM EST activ e Hospital bed eCW1 ([facility]) Hospital bed UNK 06/02/2019 12:00:00 AM EST activ e use daily eCW1 ([facility]ly [facility]) Hospital bed UNK 06/02/2019 12:00:00 AM EST activ e Hospital bed eCW1 ([facility]ly [facility]) Hospital bed UNK 06/02/2019 12:00:00 AM EST activ e Hospital bed eCW1 ([facility]ly [facility]) Hospital bed UNK 06/02/2019 12:00:00 AM EST activ e Hospital bed eCW1 ([facility]ly [facility]) Hospital bed UNK 06/02/2019 12:00:00 AM EST activ e Hospital bed eCW1 ([facility]ly [facility]) Hospital bed UNK 06/02/2019 12:00:00 AM EST activ e Hospital bed eCW1 ([facility]ly [facility]) Hospital bed UNK 06/02/2019 12:00:00 AM EST activ e use daily eCW1 ([facility]ly [facility]) Hospital bed UNK 06/02/2019 12:00:00 AM EST activ e Hospital bed eCW1 ([facility]ly [facility]) Hospital bed UNK 06/02/2019 12:00:00 AM EST activ e Hospital bed eCW1 ([facility]ly [facility]) Hospital bed UNK 06/02/2019 12:00:00 AM EST activ e Hospital bed eCW1 ([facility]) Hospital bed UNK 06/02/2019 12:00:00 AM EST activ e Hospital bed eCW1 ([facility]) Hospital bed UNK 06/02/2019 12:00:00 AM EST activ e Hospital bed eCW1 ([facility]ly [facility]) Hospital bed UNK 06/02/2019 12:00:00 AM EST activ e Hospital bed eCW1 ([facility]ly [facility]) Hospital bed UNK 06/02/2019 12:00:00 AM EST activ e Hospital bed eCW1 ([facility]) Hospital bed UNK 06/02/2019 12:00:00 AM EST activ e Hospital bed eCW1 ([facility]) Hospital bed UNK 06/02/2019 12:00:00 AM EST activ e use daily eCW1 ([facility]ly [facility]) Hospital bed UNK 06/02/2019 12:00:00 AM EST activ e use daily eCW1 ([facility]ly [facility]) Hospital bed UNK 06/02/2019 12:00:00 AM EST activ e Hospital bed eCW1 ([facility]) Hospital bed UNK 06/02/2019 12:00:00 AM EST activ e Hospital bed eCW1 ([facility]) Hospital bed UNK 06/02/2019 12:00:00 AM EST activ e Hospital bed eCW1 ([facility]) Hospital bed UNK 06/02/2019 12:00:00 AM EST activ e Hospital bed eCW1 ([facility]) Hospital bed UNK 06/02/2019 12:00:00 AM EST activ e Hospital bed eCW1 ([facility]) Hospital bed UNK 06/02/2019 12:00:00 AM EST activ e Hospital bed eCW1 ([facility]) Hospital bed UNK 06/02/2019 12:00:00 AM EST activ e Hospital bed eCW1 ([facility]ly [facility]) Hospital bed UNK 06/02/2019 12:00:00 AM EST activ e Hospital bed eCW1 ([facility]ly [facility]) Hospital bed UNK 06/02/2019 12:00:00 AM EST activ e Hospital bed eCW1 ([facility]) Hospital bed UNK 06/02/2019 12:00:00 AM EST activ e Hospital bed eCW1 ([facility]) Hospital bed UNK 06/02/2019 12:00:00 AM EST activ e Hospital bed eCW1 ([facility]) Hospital bed UNK 06/02/2019 12:00:00 AM EST activ e Hospital bed eCW1 ([facility]) Hospital bed UNK 06/02/2019 12:00:00 AM EST activ e Hospital bed eCW1 ([facility]) Hospital bed UNK 06/02/2019 12:00:00 AM EST activ e Hospital bed eCW1 ([facility]) Hospital bed UNK 06/02/2019 12:00:00 AM EST activ e Hospital bed eCW1 ([facility]) Hospital bed UNK 06/02/2019 12:00:00 AM EST activ e Hospital bed eCW1 ([facility]) Hospital bed UNK 06/02/2019 12:00:00 AM EST activ e Hospital bed eCW1 ([facility]) Hospital bed UNK 06/02/2019 12:00:00 AM EST activ e Hospital bed eCW1 ([facility]) Hospital bed UNK 06/02/2019 12:00:00 AM EST activ e Hospital bed eCW1 ([facility]) Hospital bed UNK 06/02/2019 12:00:00 AM EST activ e Hospital bed eCW1 ([facility]) Hospital bed UNK 06/02/2019 12:00:00 AM EST activ e Hospital bed eCW1 ([facility]) Hospital bed UNK 06/02/2019 12:00:00 AM EST activ e Hospital bed eCW1 ([facility]) Hospital bed UNK 06/02/2019 12:00:00 AM EST activ e Hospital bed eCW1 ([facility]) Hospital bed UNK 06/02/2019 12:00:00 AM EST activ e Hospital bed eCW1 ([facility]) Hospital bed UNK 06/02/2019 12:00:00 AM EST activ e Hospital bed eCW1 ([facility]) Hospital bed UNK 06/02/2019 12:00:00 AM EST activ e Hospital bed eCW1 ([facility]) Hospital bed UNK 06/02/2019 12:00:00 AM EST activ e Hospital bed eCW1 ([facility]) Hospital bed UNK 06/02/2019 12:00:00 AM EST activ e Hospital bed eCW1 ([facility]) Hospital bed UNK 06/02/2019 12:00:00 AM EST activ e Hospital bed eCW1 ([facility]) Hospital bed UNK 06/02/2019 12:00:00 AM EST activ e use daily eCW1 ([facility]ly [facility]) Hospital bed UNK 06/02/2019 12:00:00 AM EST activ e Hospital bed eCW1 ([facility]) Hospital bed UNK 06/02/2019 12:00:00 AM EST activ e Hospital bed eCW1 ([facility]) Hospital bed UNK 06/02/2019 12:00:00 AM EST activ e use daily eCW1 ([facility]ly [facility]) Hospital bed UNK 06/02/2019 12:00:00 AM EST activ e Hospital bed eCW1 ([facility]ly [facility]) 4 mg 05/26/2019 12:00:00 AM EST tablet 128 TAKE 3 TABLETS BY MOUTH EVERY 3 HOURS NEEDED MAXIMUM DAILY DOSE = 32 TABLETS TAKE 3 TABLETS BY MOUTH EVERY 3 HOURS NEEDED MAXIMUM DAILY DOSE = 32 TABLETS SOLD: 05/27/2019 [facility] Hydromorphone Hydrochloride 4 MG Oral Tablet Hydromorp nellie HCl 4 MG Hydromorphone HCl 4 MG 05/26/2019 12:00:00 AM EST active 3 tablets eCW1 ([facility]ly [facility]) 0.1 % 05/26/2019 12:00:00 AM EST cream [...] 12:00:00 AM EST active 3 tablets eCW1 ([facility]ly [facility]) Hydromorphone HCl 4 MG UNK 05/05/2019 12:00:00 AM EST active 3 tablets eCW1 ([facility]ly [facility]) 4 mg 05/05/2019 12:00:00 AM EST tablet 168 TAKE 3 TABLETS BY MOUTH EVERY 3 HOURS NEEDED MAXIMUM DAILY DOSE = 32 TABLETS TAKE 3 TABLETS BY MOUTH EVERY 3 HOURS NEEDED MAXIMUM DAILY DOSE = 32 TABLETS SOLD: 05/05/2019 [facility] Hydromorphone Hydrochloride 4 MG Oral Tablet Hydromorp nellie HCl 4 MG Hydromorphone HCl 4 MG 05/01/2019 12:00:00 AM EST active 4 tablets eCW1 ([facility]ly [facility]) 4 mg 05/01/2019 12:00:00 AM EST tablet 64 TAKE 4 TABLETS BY MOUTH EVERY 3 HOURS NEEDED MAXIMUM DAILY DOSE = 32TABS TAKE 4 TABLETS BY MOUTH EVERY 3 HOURS NEEDED MAXIMUM DAILY DOSE = 32TABS SOLD: 05/01/2019 [facility] Prednisone 50 MG Oral Tablet PredniSONE 50 MG PredniSONE 50 MG 04/26/2019 12:00:00 AM EST suspended 1 tab let eCW1 ([facility]ly [facility]) Prednisone 50 MG Oral Tablet PredniSONE 50 MG PredniSONE 50 MG 04/26/2019 12:00:00 AM EST suspended 1 tab let eCW1 ([facility]ly [facility]) Prednisone 50 MG Oral Tablet PredniSONE 50 MG PredniSONE 50 MG 04/26/2019 12:00:00 AM EST active 1 tablet eCW1 ([facility]ly [facility]) Prednisone 50 MG Oral Tablet PredniSONE 50 MG PredniSONE 50 MG 04/26/2019 12:00:00 AM EST suspended 1 tab let eCW1 ([facility]) Prednisone 50 MG Oral Tablet PredniSONE 50 MG PredniSONE 50 MG 04/26/2019 12:00:00 AM EST suspended 1 tab let eCW1 ([facility]) Prednisone 50 MG Oral Tablet PredniSONE 50 MG PredniSONE 50 MG 04/26/2019 12:00:00 AM EST suspended 1 tab let eCW1 ([facility]ly [facility]) 50 mg 04/26/2019 12:00:00 AM EST tablet 5 TAKE 1 TABLET BY MOUTH ONCE A DAY FOR 5 DAYS TAKE 1 TABLET BY MOUTH ONCE A DAY FOR 5 DAYS SOLD: 04/26/2019 [facility] Prednisone 50 MG Oral Tablet PredniSONE 50 MG PredniSONE 50 MG 04/26/2019 12:00:00 AM EST active 1 tablet eCW1 ([facility]) Prednisone 50 MG Oral Tablet PredniSONE 50 MG PredniSONE 50 MG 04/26/2019 12:00:00 AM EST 1.0 {tablet} suspended PredniSONE 50 MG eCW1 ([facility]ly [facility]) Prednisone 50 MG Oral Tablet PredniSONE 50 MG PredniSONE 50 MG 04/26/2019 12:00:00 AM EST suspended 1 tab let eCW1 ([facility]) Hydromorphone Hydrochloride 4 MG Oral Tablet Hydromorp nellie HCl 4 MG Hydromorphone HCl 4 MG 04/22/2019 12:00:00 AM EST active 3 tablets eCW1 ([facility]) 4 mg 04/22/2019 12:00:00 AM EST tablet 168 TAEK 3 TABLETS BY MOUTH EVERY 3 HOURS NEEDED MAXIMUM DAILY DOSE = 24 TABLETS TAEK 3 TABLETS BY MOUTH EVERY 3 HOURS NEEDED MAXIMUM DAILY DOSE = 24 TABLETS SOLD: 04/22/2019 [facility] 2 % 04/21/2019 12:00:00 AM EST [...] 12:00:00 AM EST suspended 1 tablet eCW1 ([facility]ly [facility]) Doxycycline Monohydrate 100 MG Oral Tablet Doxycycline Monoh ydrate 100 MG 04/20/2019 12:00:00 AM EST suspended 1 tablet eCW1 ([facility]) Doxycycline Monohydrate 100 MG Oral Tablet Doxycycline Monoh ydrate 100 MG 04/20/2019 12:00:00 AM EST suspended 1 tablet eCW1 ([facility]) Doxycycline Monohydrate 100 MG Oral Tablet Doxycycline Monoh ydrate 100 MG 04/20/2019 12:00:00 AM EST suspended 1 tablet eCW1 ([facility]) Doxycycline Monohydrate 100 MG Oral Tablet Doxycycline Monoh ydrate 100 MG 04/20/2019 12:00:00 AM EST active 1 tablet eCW1 ([facility]) Doxycycline Monohydrate 100 MG Oral Tablet Doxycycline Monoh ydrate 100 MG 04/20/2019 12:00:00 AM EST active 1 tablet eCW1 ([facility]) Doxycycline Monohydrate 100 MG Oral Tablet Doxycycline Monoh ydrate 100 MG 04/20/2019 12:00:00 AM EST 1.0 {tablet} suspende d Doxycycline Monohydrate 100 MG eCW1 ([facility]) Doxycycline Monohydrate 100 MG Oral Tablet Doxycycline Monoh ydrate 100 MG 04/20/2019 12:00:00 AM EST active 1 tablet eCW1 ([facility]) Doxycycline Monohydrate 100 MG Oral Tablet Doxycycline Monoh ydrate 100 MG 04/20/2019 12:00:00 AM EST suspended 1 tablet eCW1 ([facility]) 4 mg/2 mL 04/19/2019 12:00:00 AM EST solution 120 INJECT 4MG (2ML) DIRECTED TWO TIMES A DAY AT LEAST 8 HOURS APART INJECT 4MG (2ML) DIRECTED TWO TIMES A DAY AT LEAST 8 HOURS APART SOLD: 04/19/2019 [facility] 4 mg/2 mL 04/19/2019 12:00:00 AM EST solution 120 INJECT 4MG (2ML) DIRECTED TWO TIMES A DAY AT LEAST 8 HOURS APART INJECT 4MG (2ML) DIRECTED TWO TIMES A DAY AT LEAST 8 HOURS APART SOLD: 07/06/2019 [facility] 2 % 04/18/2019 12:00:00 AM EST [...] DAILY DOSE = 24 TABLETS SOLD: 04/14/2019 [facility] Hydromorphone Hydrochloride 4 MG Oral Tablet Hydromorp nellie HCl 4 MG Hydromorphone HCl 4 MG 04/13/2019 12:00:00 AM EST active 3 tablets eCW1 ([facility]) 90 mcg/actuation 04/12/2019 12:00:00 AM EST HFA [...] BY MOUTH TWICE A DAY SOLD: 08/26/2019 [facility] 1 gram 04/08/2019 12:00:00 AM [...] 12:00:00 AM EST active 3 tablets eCW1 ([facility]) 10 gram/15 mL 03/06/2019 12:00:00 AM EST [...] A DAY NEEDED FOR INJECTIONS SOLD: 05/04/2019 [facility] Spiriva Respimat 1.25 mcg/actuation inhalation mist ti otropium 0.74659 MG/ACTUAT Metered Dose Inhaler 11/11/2018 08:21:22 AM EDT 2 mists completed Spiriva Respimat JUAN DANIEL ([facility] 12 % 10/30/2018 12:00:00 AM EDT lotion [...] 15 0 MG active 1 tablet eCW1 ([facility]) Insurance Providers Payer name Policy type / Coverage type Policy ID Covered libertarian ID Covered libertarian's relationship to joe Policy Joe Plan Information [facility] [id number] SP [id number] [facility] O [id number] S [id number] [facility] Health Plan [facility] Other 0 Self 0 [facility] COMMUNITY PLAN [facility] [id number] SP [id number] [facility] [id number] SP [id number] [facility] COMMUNITY [facility] [id number] SP [id number] [facility] HEALTH [facility] [id number] SP [id number] [facility] COMMUNITY PLAN [facility] [id number] SP [id number] [place] [id number] SP [id number] SP [facility] O [id number] S [id number] [facility] [id number] SP [id number] MEDICAID [id number] SP [id number] [facility] [id number] SP [id number] MEDICAID [id number] SP [id number] BCBS [id number] Blue Cross/Blue Shield [id number] Medicaid [id number] Medicaid [id number] [facility] [id number] Preferred Provider Organization (PPO) [id number] ANSI-Medicaid [id number] ANSI-Medicaid [id number] ANSI-Medicaid [id number] ANSI-Medicaid [id number] ANSI-Medicaid [id number] ANSI-Medicaid [id number] ANSI-Medicaid [id number] ANSI-Medicaid [id number] ANSI-Medicaid [id number] ANSI-Medicaid [id number] ANSI-Medicaid [id number] ANSI-Medicaid [id number] ANSI-Medicaid [id number] ANSI-Medicaid [id number] ANSI-Medicaid [id number] ANSI-Medicaid [id number] ANSI-Medicaid [id number] ANSI-Medicaid [id number] ANSI-Medicaid [id number] ANSI-Medicaid [id number] ANSI-Medicaid [id number] ANSI-Medicaid [id number] ANSI-Medicaid [id number] ANSI-Medicaid [id number] ANSI-Medicaid [id number] [facility] COMMUNITY PLAN [facility] [id number] ANSI-Medicaid [id number] [facility] [id number] [facility] [id number] ANSI-Medicaid [id number] ANSI-Medicaid [id number] ANSI-Medicaid [id number] ANSI-Medicaid [id number] ANSI-Medicaid [id number] ANSI-Medicaid [id number] ANSI-Medicaid [id number] ANSI-Medicaid [id number] ANSI-Medicaid [id number] ANSI-Medicaid [id number] [facility] [id number] ANSI-Medicaid [id number] ANSI-Medicaid [id number] ANSI-Medicaid [id number] [facility] [id number] [facility] [id number] ANSI-Medicaid [id number] ANSI-Medicaid [id number] ANSI-Medicaid [id number] ANSI-Medicaid [id number] ANSI-Medicaid [id number] ANSI-Medicaid [id number] ANSI-Medicaid [id number] ANSI-Medicaid [id number] ANSI-Medicaid [id number] ANSI-Medicaid [id number] [facility] Commercial [id number] Self [id number] ANSI-Medicaid [id number] ANSI-Medicaid [id number] ANSI-Medicaid [id number] ANSI-Medicaid [id number] ANSI-Medicaid [id number] ANSI-Medicaid [id number] ANSI-Medicaid [id number] ANSI-Medicaid [id number] ANSI-Medicaid [id number] ANSI-Medicaid [id number] ANSI-Medicaid [id number] ANSI-Medicaid [id number] ANSI-Medicaid [id number] ANSI-Medicaid [id number] ANSI-Medicaid [id number] ANSI-Medicaid [id number] ANSI-Medicaid [id number] [facility] [id number] ANSI-Medicaid [id number] ANSI-Medicaid [id number] ANSI-Medicaid [id number] ANSI-Medicaid [id number] ANSI-Medicaid [id number] ANSI-Medicaid [id number] [facility] [id number] [facility] [id number] ANSI-Medicaid [id number] ANSI-Medicaid [id number] ANSI-Medicaid [id number] ANSI-Medicaid [id number] ANSI-Medicaid [id number] [facility] [id number] ANSI-Medicaid [id number] ANSI-Medicaid [id number] ANSI-Medicaid [id number] ANSI-Medicaid [id number] ANSI-Medicaid [id number] ANSI-Medicaid [id number] ANSI-Medicaid [id number] ANSI-Medicaid [id number] ANSI-Medicaid [id number] [facility] Commercial [id number] Self [id number] ANSI-Medicaid [id number] ANSI-Medicaid [id number] ANSI-Medicaid [id number] ANSI-Medicaid [id number] ANSI-Medicaid [id number] ANSI-Medicaid [id number] ANSI-Medicaid [id number] ANSI-Medicaid [id number] ANSI-Medicaid [id number] ANSI-Medicaid [id number] ANSI-Medicaid [id number] ANSI-Medicaid [id number] ANSI-Medicaid [id number] [facility] COMMUNITY PLAN [facility] [id number] ANSI-Medicaid [id number] ANSI-Medicaid [id number] ANSI-Medicaid [id number] [facility] [id number] Self [id number] ANSI-Medicaid [id number] ANSI-Medicaid [id number] ANSI-Medicaid [id number] [employer] COMMUNITY PLAN MCDHMO [id number] SP [id number] [employer] Commercial [id number] Self [id number] UN[employer] COMMUNITY PLAN MCDHMO [id number] SP [id number] [employer] H[employer] Commercial [id number] Self [id number] UN[employer] COMMUNITY PLAN MCDHMO [id number] SP [id number] Hmo Commercial [id number] Self [id number] UNHC COMMUNITY PLAN MCDHMO [id number] SP [id number] UNHC COMMUNITY PLAN MCDHMO [id number] SP [id number] Commercial [id number] Self [id number] UNHC COMMUNITY PLAN MCDHMO [id number] SP [id number] [facility] H[employer] Commercial [id number] Self [id number] UNHC COMMUNITY PLAN MCDHMO [id number] SP [id number] UNHC COMMUNITY PLAN MCDHMO [id number] SP [id number] [employer] H[employer] Commercial [id number] Self [id number] [facility] Commercial [id number] Self [id number] UNHC COMMUNITY PLAN MCDHMO [id number] SP [id number] [employer] Commercial Self BS Shi Hmo Blue Option Medigap Part B Self [place] Medigap Part B Self [facility] Community Plan Commercial Self UNHC COMMUNITY PLAN MCDHMO UNHC COMMUNITY PLAN MCDHMO Self [facility] UNHC COMMUNITY PLAN [place] Medigap Part B Self BS Shi Hmo Blue Option Medigap Part B Self [facility] Community Plan Commercial Self UNHC COMMUNITY PLAN MCDHMO [id number] SP [id number] UNHC COMMUNITY PLAN MCDHMO [id number] SP [id number] UN COMMUNITY PLAN MCDO [id number] SP [id number] [facility] COMMUNITY PLAN MCDO [id number] SP [id number] [facility] Shi/MCR Medigap Part B Self Medicaid [place] Medicaid Self [facility] Hmo Commercial Self [facility] I [id number] Self [id number] UNITED H [id number] Self [id number] UNITED H [id number] Self [id number] [facility] Plan-Shi Commercial Self BLUE CROSS [place] PLAN [id number] SP [id number] [employer]CE[employer] BCBS P [id number] S [id number] HMO BLUE [id number] SP [id number] [facility] PLAN [facility] [place] [id number] SP [id number] Problems, Conditions, and Diagnoses Code Display Name Description Problem Type Effective Dates Data Source(s) Corns and callosities Corns and callosities Problem 03/30/2020 12:00:00 AM EST MEDENT ([facility] 459940607 Onychomycosis Onychomycosis Problem 03/30/2020 12:00:00 AM EST [facility] ([facility] G89.29 64100636 Other chronic pain Problem 03/28/2020 12:00: 00 AM EST eCW1 ([facility]) 379.21 Vitreous Disorders Degeneration Vitreous Disorders Deg eneration Problem 03/21/2020 12:00:00 AM EST JUAN DANIEL (Jhony Lowery [facility]) 368.12 Transient Visual Loss Transient Visual Loss Problem 03/21/2020 12:00:00 AM EST JUAN DANIEL ([facility]ony [facility]) 375.15 Dry Eye Syndrome Dry Eye Syndrome Problem 03/21/2020 12 :00:00 AM EST JUAN DANIEL (Jhony [facility]) 366.16 Cataract Senile Nuclear Cataract Senile Nuclear Proble m 03/21/2020 12:00:00 AM EST JUAN DANIEL ([facility]ony [facility]) 112061203 Long-term current use of insulin (situat ion) Taking Medication For Diabetes Long-term Use of Insulin Problem 03/21/2020 12:00:00 AM EST JUAN DANIEL ([facility]hony [facility]) 250.00 Diabetes Mellitus Type 2 Without Complic ation Diabetes Mellitus Type 2 Without Complication Problem 03/21/2020 12:00:00 AM EST JUAN DANIEL (Champ Lowery [facility]) 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 Problem 03/21/2020 12:00:00 AM EST JUAN DANIEL ([facility]ony [facility]) [id number] Complex regional pain syndrome type I Co mplex regional pain syndrome type I Problem 03/17/2020 12:00:00 AM EST MEDENT ([facility], ) R29.6 [id number] Falls frequently Problem 01/16/2020 12:00:00 AM EDT eCW1 ([facility]) L71.9 [id number] Rosacea Problem 11/02/2019 12:00:00 AM ED T eCW1 ([facility]) K43.0 381045374 Incisional hernia with obstruction but no gangrene Problem 10/21/2019 12:00:00 AM EDT eCW1 ([facility]) N95.2 413313240 Vaginal atrophy Problem 10/01/2019 12:00:00 AM EDT eCW1 ([facility]) M54.2 84960371 Cervicalgia Problem 07/29/2019 12:00:00 AM E DT eCW1 ([facility]) M54.2 95555734 Cervicalgia Problem 07/29/2019 12:00:00 AM E DT eCW1 ([facility]) L20.82 41960068 Flexural eczema Problem 07/23/2019 12:00:00 AM EDT eCW1 ([facility]) L20.82 07243749 Flexural eczema Problem 07/23/2019 12:00:00 AM EDT eCW1 ([facility]) Type 2 diabetes mellitus with diabetic p olyneuropathy Type 2 diabetes mellitus with diabetic polyneuropathy Problem 06/11/2019 12:00:00 AM EST MED ENT ([facility] [id number] 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 06/11/2019 12:00:00 AM EST [facility] ([facility] Surgeries/Procedures Procedure Description Date Indications Data Source(s) PROCTOSGMDSC RGD DX W/WO COLLJ SPEC BR/WA SPX 03/30/20 12:00:00 AM EST MED[facility] ([facility]) Surgical / procedural history Scalp Alvaro or 1984, Lumpectomies, Total Hysterectomy, Bilateral Sympathectomy 1987, AV [...] 02/2018 Surgical / procedural history Scalp Tumor 1984, Lumpectomies, Total Hysterectomy, Bilateral Sympathectomy 1987, AV [...] AM EST JUAN DANIEL (Jhony Lowery [facility]) Medical Eye Exam Medical Eye Exam 03/21/2020 12:00:00 AM EST JUAN DANIEL (Jhony Lower[facility]) Sigmoidoscopy, Flexible;Diagnostic W/Or W/O Collection Of Sp ecime 02/17/2020 12:00:00 AM EST [facility] ([facility], ) Hernia Recurr Ventral/Incisional, Reducible 12/21/2019 12:00:00 AM EDT MED[facility] ([facility], ) Implantation Of Mesh Or Other Prosthesis For Incisional Or V entra 12/21/2019 12:00:00 AM EDT MED[facility] ([facility], ) RADEX FOOT COMPLETE MINIMUM 3 VIEWS 12/14/2019 12:00:0 0 AM EDT [facility] ([facility] RADEX FOOT COMPLETE MINIMUM 3 VIEWS 10/11/2019 12:00:0 0 AM EDT [facility] ([facility] NO CHARGE VISIT 09/13/2019 12:00:00 AM EDT eCW1 ([facility]) RADEX FOOT COMPLETE MINIMUM 3 VIEWS 08/30/2019 12:00:0 0 AM EDT MED[facility] ([facility] Medication: Toradol 60mg/2mL IM (Ketorolac) 07/30/2019 12:00:00 AM EDT eCW1 ([facility]) RADEX FOOT COMPLETE MINIMUM 3 VIEWS 07/29/2019 12:00:0 0 AM EDT MED[facility] ([facility] PHYSICIAN TELEPHONE EVALUATION 11-20 MIN 07/28/2019 12 :00:00 AM EDT eCW1 ([facility]) MARSUPIALIZATION BARTHOLINS GLAND CYST 07/16/2019 12:0 0:00 AM EDT eCW1 ([facility]) ESTABILISHED PATIENT [facility] CHARGE 020 12:00:00 AM EDT eCW1 ([facility]) RADEX FOOT COMPLETE MINIMUM 3 VIEWS 06/25/2019 12:00:0 0 AM EDT [facility] ([facility] RADEX FOOT COMPLETE MINIMUM 3 VIEWS 05/28/2019 12:00:0 0 AM EST [facility] ([facility] Results ID Date Data Source [id number] 02/12/2020 09:30:00 AM EDT [facility] Name Value Range Interpretation Code Description Data Yun rce(s) Supporting Document(s) SARS coronavirus 2 RNA [facility] This lab was ordered by [facility] and reported by [facility]. ID Date Data Source [id number] 12/22/2019 11:14:00 AM EDT MEDENT ([facility], ) Name Value Range Interpretation Code Description Data Yun rce(s) Supporting Document(s) Glucose [Mass/volume] in Capillary blood by Glucometer 256 mg/dL 70-105 Above high normal MED[facility] ([facility]) ID Date Data Source [id number] 12/22/2019 05:30:00 AM [facility] Name Value Range Interpretation Code Description Data Yun rce(s) Supporting Document(s) Glucose [Mass/volume] in Capillary blood by Glucometer 260 mg/dL 70-105 Above high normal [facility] ([facility]) ID Date Data Source [id number] 12/21/2019 08:23:00 PM EDT [facility] Name Value Range Interpretation Code Description Data Yun rce(s) Supporting Document(s) Glucose [Mass/volume] in Capillary blood by Glucometer 214 mg/dL 70-105 Above high normal [facility] ([facility]) ID Date Data Source [id number] 12/21/2019 04:52:00 PM EDT [facility] Name Value Range Interpretation Code Description Data Yun rce(s) Supporting Document(s) Glucose [Mass/volume] in Capillary blood by Glucometer 126 mg/dL 70-105 Above high normal [facility] ([facility]) ID Date Data Source [id number] 12/21/2019 02:58:00 PM [facility] Name Value Range Interpretation Code Description Data Yun rce(s) Supporting Document(s) Glucose [Mass/volume] in Capillary blood by Glucometer 159 mg/dL 70-105 Above high normal MED[facility] ([facility]) ID Date Data Source [id number] 12/21/2019 12:40:00 PM EDT [facility] Name Value Range Interpretation Code Description Data Yun rce(s) Supporting Document(s) Glucose [Mass/volume] in Capillary blood by Glucometer 185 mg/dL 70-105 Above high normal [facility] ([facility]) ID Date Data Source [id number] 12/21/2019 10:29:00 AM EDT [facility] Name Value Range Interpretation Code Description Data Yun rce(s) Supporting Document(s) Glucose [Mass/volume] in Capillary blood by Glucometer 203 mg/dL 70-105 Above high normal [facility] ([facility], ) ID Date Data Source [id number] 12/16/2019 09:00:00 AM EDT [facility] Name Value Range Interpretation Code Description Data Yun rce(s) Supporting Document(s) SARS coronavirus 2 RNA [facility] This lab was ordered by [facility] and reported by [facility]. ID Date Data Source [id number] 2019 12:00:00 AM EDT [facility] Name Value Range Interpretation Code Description Data Yun rce(s) Supporting Document(s) SARS CORONAVIRUS 2 RNA [facility] This lab was ordered by [facility] and reported by [facility]. ID Date Data Source RHYS PREP 09/12/2019 11:46:06 AM EDT eCW1 (Counts include [facility] beds at the [facility]) Name Value Range Interpretation Code Description Data Yun rce(s) Supporting Document(s) Positive Clue Cells eCW1 ([facility]) Hyphae eCW1 ([facility]) pH eCW1 ([facility]) Budding Yeast Forms eCW1 ([facility]) Trichomonas eCW1 ([facility]) Epithelial Cell Description eC W1 ([facility]) RBC eCW1 ([facility]) Positive Sniff eCW1 ([facility]) WBC eCW1 ([facility]) ID Date Data Source CHLAMYDIA & GC DNA AMPLIFICAT 09/10/2019 09:32:55 AM EDT eCW 1 ([facility]) Name Value Range Interpretation Code Description Data Yun rce(s) Supporting Document(s) Chlamydia trachomatis rRNA [Presence] in Unspecified specimen by Probe and target amplification method NEGATIVE eCW1 ([facility]) ID Date Data Source Urinalysis, no micro 09/10/2019 05:32:51 AM EDT eCW1 ([facility]) Name Value Range Interpretation Code Description Data Yun rce(s) Supporting Document(s) 1.015 1.015 eCW1 ([facility]) Spec gravity neg neg eCW1 ([facility]) Protein neg pos eCW1 ([facility]) Nitrate 5 6 eCW1 ([facility]) pH + ++ eCW1 ([facility]) Leukocyte neg neg eCW1 ([facility]) Ketones norm norm eCW1 ([facility]) Urobili 1000 norm eCW1 ([facility]) Glucose neg 50 eCW1 ([facility]) Blood neg neg eCW1 ([facility]) Bilirubin yes eCW1 ([facility]) Internal QC Acceptable (Y/N) ID Date Data Source PAIN MGMT UR 10 PANEL [id number] 08/20/2019 06:48:24 AM EDT eC W1 ([facility]) Name Value Range Interpretation Code Description Data Yun rce(s) Supporting Document(s) Negative AMPHETAMINE SCREEN, URINE eCW1 ([facility]) Negative BARBITURATES SCREEN, URINE eCW 1 ([facility]) Negative BENZODIAZEPINES, URINE SC REEN eCW1 ([facility]) Negative CANNABINOID SCREEN, URINE eCW1 ([facility]) See Final Results OPIATE SCREEN, URI NE eCW1 ([facility]) Negative COCAINE SCREEN, URINE eCW1 ([facility]) Negative PCP SCREEN, URINE eCW1 ([facility]) Negative OXYCODONE, SCREEN, URINE eCW1 ([facility]) Negative PROPOXYPHENE URINE, SCREEN eCW 1 ([facility]) Negative METHADONE, URINE SCREEN eCW1 ( [facility]) Procedure Social History Code Duration Value Status Description Data Source(s ) Smoking 05/22/2020 12:00:00 AM EST Never Smoker completed Never S moker eCW1 ([facility]) Smoking 05/11/2020 12:00:00 AM EST Never Smoker completed Never S moker eCW1 ([facility]) Smoking 05/11/2020 12:00:00 AM EST Never Smoker completed Never S moker eCW1 ([facility]) Smoking 04/12/2020 12:00:00 AM EST Never Smoker completed Never S moker eCW1 ([facility]) Smoking 04/12/2020 12:00:00 AM EST Never Smoker completed Never S moker eCW1 ([facility]) Smoking 04/12/2020 12:00:00 AM EST Never Smoker completed Never S moker eCW1 ([facility]) Smoking 04/12/2020 12:00:00 AM EST Never Smoker completed Never S moker eCW1 ([facility]) Smoking 04/12/2020 12:00:00 AM EST Never Smoker completed Never S moker eCW1 ([facility]) Smoking 04/12/2020 12:00:00 AM EST Never Smoker completed Never S moker eCW1 ([facility]) Smoking 04/12/2020 12:00:00 AM EST Never Smoker completed Never S moker eCW1 ([facility]) Smoking 04/12/2020 12:00:00 AM EST Never Smoker completed Never S moker eCW1 ([facility]) Smoking 04/12/2020 12:00:00 AM EST Never Smoker completed Never S moker eCW1 ([facility]) Smoking 04/12/2020 12:00:00 AM EST Never Smoker completed Never S moker eCW1 ([facility]) Smoking 04/12/2020 12:00:00 AM EST Never Smoker completed Never S moker eCW1 ([facility]) Smoking 04/12/2020 12:00:00 AM EST Never Smoker completed Never S moker eCW1 ([facility]) Smoking 04/12/2020 12:00:00 AM EST Never Smoker completed Never S moker eCW1 ([facility]) Smoking 04/12/2020 12:00:00 AM EST Never Smoker completed Never S moker eCW1 ([facility]) Smoking 04/12/2020 12:00:00 AM EST Never Smoker completed Never S moker eCW1 ([facility]) Smoking 04/12/2020 12:00:00 AM EST Never Smoker completed Never S moker eCW1 ([facility]) Smoking 04/12/2020 12:00:00 AM EST Never Smoker completed Never S moker eCW1 ([facility]) Smoking 03/28/2020 12:00:00 AM EST Never Smoker completed Never S moker eCW1 ([facility]) Smoking 03/28/2020 12:00:00 AM EST Never Smoker completed Never S moker eCW1 ([facility]) Smoking 03/28/2020 12:00:00 AM EST Never Smoker completed Never S moker eCW1 ([facility]) Smoking 03/28/2020 12:00:00 AM EST Never Smoker completed Never S moker eCW1 ([facility]) Smoking 03/28/2020 12:00:00 AM EST Never Smoker completed Never S moker eCW1 ([facility]) Smoking 03/28/2020 12:00:00 AM EST Never Smoker completed Never S moker eCW1 ([facility]) Smoking 03/21/2020 10:24:52 AM EST Never smoked tobacco (findi ng) completed Never smoked tobacco (finding) JUAN DANIEL (Jhony Lowery MD [facility]) Smoking 03/20/2020 12:00:00 AM EST Never Smoker completed Never S moker eCW1 ([facility]) Smoking 03/20/2020 12:00:00 AM EST Never Smoker completed Never S moker eCW1 ([facility]) Smoking 03/20/2020 12:00:00 AM EST Never Smoker completed Never S moker eCW1 ([facility]) Smoking 03/20/2020 12:00:00 AM EST Never Smoker completed Never S moker eCW1 ([facility]) Smoking 03/20/2020 12:00:00 AM EST Never Smoker completed Never S moker eCW1 ([facility]) Smoking 03/17/2020 12:00:00 AM EST Never Smoker completed Never S moker eCW1 ([facility]) Smoking 02/17/2020 12:00:00 AM EST Never Smoker completed Never S moker eCW1 ([facility]) Smoking 02/17/2020 12:00:00 AM EST Never Smoker completed Never S moker eCW1 ([facility]) Smoking 02/17/2020 12:00:00 AM EST Never Smoker completed Never S moker eCW1 ([facility]) Smoking 01/26/2020 12:00:00 AM EDT Never Smoker completed Never S moker eCW1 ([facility]) Smoking 01/26/2020 12:00:00 AM EDT Never Smoker completed Never S moker eCW1 ([facility]) Smoking 01/26/2020 12:00:00 AM EDT Never Smoker completed Never S moker eCW1 ([facility]) Smoking 01/26/2020 12:00:00 AM EDT Never Smoker completed Never S moker eCW1 ([facility]) Smoking 01/26/2020 12:00:00 AM EDT Never Smoker completed Never S moker eCW1 ([facility]) Smoking 01/26/2020 12:00:00 AM EDT Never Smoker completed Never S moker eCW1 ([facility]) Smoking 01/24/2020 12:00:00 AM EDT Never Smoker completed Never S moker eCW1 ([facility]) Smoking 01/24/2020 12:00:00 AM EDT Never Smoker completed Never S moker eCW1 ([facility]) Smoking 11/01/2019 12:00:00 AM EDT Never Smoker completed Never S moker eCW1 ([facility]) Smoking 11/01/2019 12:00:00 AM EDT Never Smoker completed Never S moker eCW1 ([facility]) Smoking 11/01/2019 12:00:00 AM EDT Never Smoker completed Never S moker eCW1 ([facility]) Smoking 11/01/2019 12:00:00 AM EDT Never Smoker completed Never S moker eCW1 ([facility]) Smoking 11/01/2019 12:00:00 AM EDT Never Smoker completed Never S moker eCW1 ([facility]) Smoking 11/01/2019 12:00:00 AM EDT Never Smoker completed Never S moker eCW1 ([facility]) Smoking 11/01/2019 12:00:00 AM EDT Never Smoker completed Never S moker eCW1 ([facility]) Smoking 10/25/2019 12:00:00 AM EDT Never Smoker completed Never S moker eCW1 ([facility]) Smoking 10/25/2019 12:00:00 AM EDT Never Smoker completed Never S moker eCW1 ([facility]) Smoking 10/25/2019 12:00:00 AM EDT Never Smoker completed Never S moker eCW1 ([facility]) Smoking 10/25/2019 12:00:00 AM EDT Never Smoker completed Never S moker eCW1 ([facility]) Smoking 10/01/2019 12:00:00 AM EDT Never Smoker completed Never S moker eCW1 ([facility]) Smoking 10/01/2019 12:00:00 AM EDT Never Smoker completed Never S moker eCW1 ([facility]) Smoking 10/01/2019 12:00:00 AM EDT Never Smoker completed Never S moker eCW1 ([facility]) Smoking 10/01/2019 12:00:00 AM EDT Never Smoker completed Never S moker eCW1 ([facility]) Smoking 09/27/2019 12:00:00 AM EDT Never Smoker completed Never S moker eCW1 ([facility]) Smoking 09/27/2019 12:00:00 AM EDT Never Smoker completed Never S moker eCW1 ([facility]) Smoking 09/27/2019 12:00:00 AM EDT Never Smoker completed Never S moker eCW1 ([facility]) Smoking 09/27/2019 12:00:00 AM EDT Never Smoker completed Never S moker eCW1 ([facility]) Smoking 09/27/2019 12:00:00 AM EDT Never Smoker completed Never S moker eCW1 ([facility]) Smoking 09/17/2019 12:00:00 AM EDT Never Smoker completed Never S moker eCW1 ([facility]) Smoking 09/17/2019 12:00:00 AM EDT Never Smoker completed Never S moker eCW1 ([facility]) Smoking 09/17/2019 12:00:00 AM EDT Never Smoker completed Never S moker eCW1 [facility] [place] Smoking 09/17/2019 12:00:00 AM EDT Never Smoker completed Never S moker eCW1 (Formerly [facility] [place] [facility]) Smoking 09/17/2019 12:00:00 AM EDT Never Smoker completed Never S moker eCW1 (Formerly [facility] [place]) Smoking 09/17/2019 12:00:00 AM EDT Never Smoker completed Never S moker eCW1 ([facility]ly [facility] [place]) Smoking 09/17/2019 12:00:00 AM EDT Never Smoker completed Never S moker eCW1 ([facility]ly [facility] [place]) Vital Signs ID Date Data Source UNK Name Value Range Interpretation Code Description Data Source(s) Body surface area Derived from formula 1.95 m2 1.95 m2 [facility] ([facility]) Body weight 83.236 kg 83.236 kg [facility] ([facility]) [place] body weight 135 [lb_av] 135 [lb_av] MEDEN T ([facility]) Body mass index (BMI) [Ratio] 28.7 kg/m2 28.7 k g/m2 [facility] ([facility]) Body weight 183.50 [lb_av] 183.50 [lb_av] [facility] Body height 67 [in_i] 67 [in_i] [facility] ([facility]) 5'7" Heart rate 103 /min 103 /min [facility] ([facility]) Diastolic blood pressure 73 mm[Hg] 73 mm[Hg] [facility] ([facility]) Systolic blood pressure 118 mm[Hg] 118 mm[Hg] [facility] Body surface area Derived from formula 1.94 m2 1.94 m2 [facility] ([facility]) Body weight 82.328 kg 82.328 kg [facility] ([facility]) [place] body weight 135 [lb_av] 135 [lb_av] MEDEN T ([facility]) Body mass index (BMI) [Ratio] 28.4 kg/m2 28.4 k g/m2 [facility] ([facility]) Body weight 181.50 [lb_av] 181.50 [lb_av] MEDEN T ([facility]) Body height 67 [in_i] 67 [in_i] [facility] ([facility]) 5'7" Diastolic blood pressure 84 mm[Hg] 84 mm[Hg] MEDENT ([facility]) Systolic blood pressure 126 mm[Hg] 126 mm[Hg] M EDENT ([facility]) Diastolic blood pressure 76 mm[Hg] 76 mm[Hg] eCW1 ([facility]ly [facility] [place]) Systolic blood pressure 112 mm[Hg] 112 mm[Hg] e CW1 ([facility] [place]) Body temperature 97.3 [degF] 97.3 [degF] eCW1 ( [facility] [place]) Respiratory rate 17 /min 17 /min eCW1 (Formerly [facility], 1928–1983) Heart rate 102 /min 102 /min eCW1 ([facility]) Body mass index (BMI) [Ratio] 28.66 kg/m2 28.66 kg/m2 W1 ([facility]ly [facility] [place] [facility]) Body height 67 [in_i] 67 [in_i] eCW1 (Counts include 234 beds at the [facility]) Body weight 183 [lb_av] 183 [lb_av] eCW1 ([facility]) Body mass index (BMI) [Ratio] 25.1 kg/m2 [...] blood pressure 69 mm[Hg] 69 mm[Hg] eCW1 ([facility] [place]) Systolic blood pressure 139 mm[Hg] 139 mm[Hg] e CW1 ([facility] [place] [facility]) Body temperature 97.0 [degF] 97.0 [degF] eCW1 ( [facility] [place] [facility]) Respiratory rate 18 /min 18 /min eCW1 (Formerly [facility], 1928–1983) Heart rate 99 /min 99 /min eCW1 ([facility]) Body mass index (BMI) [Ratio] 28.47 kg/m2 28.47 kg/m2 eCW1 ([facility] [place] [facility]) Body height 67 [in_i] 67 [in_i] eCW1 (Counts include 234 beds at the [facility]) Body weight 181.8 [lb_av] 181.8 [lb_av] eCW1 ([facility]) Diastolic blood pressure 68 mm[Hg] 68 mm[Hg] eCW1 ([facility] [place]) Systolic blood pressure 126 mm[Hg] 126 mm[Hg] e CW1 ([facility] [place] [facility]) Body temperature 98.1 [degF] 98.1 [degF] eCW1 ( [facility] [place]) Respiratory rate 18 /min 18 /min eCW1 (Formerly [facility], 1928–1983) Heart rate 104 /min 104 /min eCW1 ([facility]) Body mass index (BMI) [Ratio] 27.41 kg/m2 27.41 kg/m2 eCW1 ([facility] [place] [facility]) Body height 67 [in_i] 67 [in_i] eCW1 (Counts include 234 beds at the [facility]) Body weight 175 [lb_av] 175 [lb_av] eCW1 ([facility]) [place] body weight 130 [lb_av] 130 [lb_av] MEDEN T ([facility]) Body mass index (BMI) [Ratio] 27.4 kg/m2 27.4 k g/m2 [facility] ([facility]) Body weight 170.00 [lb_av] 170.00 [lb_av] MEDEN T ([facility]) Body height 66 [in_i] 66 [in_i] [facility] 5'6" Respiratory rate 12 /min 12 /min [facility] ( [facility]) Body surface area Derived from formula 1.93 m2 1.93 m2 [facility] ([facility]) Body weight 81.251 kg 81.251 kg [facility] ([facility]) [place] body weight 135 [lb_av] 135 [lb_av] MEDEN T ([facility]) Body mass index (BMI) [Ratio] 28.1 kg/m2 28.1 k g/m2 [facility] ([facility]) Body weight 179.12 [lb_av] 179.12 [lb_av] MEDEN T ([facility]) Body height 67 [in_i] 67 [in_i] [facility] ([facility]) 5'7" Diastolic blood pressure 79 mm[Hg] 79 mm[Hg] [facility] ([facility]) Systolic blood pressure 139 mm[Hg] 139 mm[Hg] M EDENT ([facility]) Diastolic blood pressure 70 mm[Hg] 70 mm[Hg] eCW1 ([facility] [place] [facility]) Systolic blood pressure 116 mm[Hg] 116 mm[Hg] e CW1 ([facility] [place]) Body temperature 97.3 [degF] 97.3 [degF] eCW1 ( [facility] [place]) Respiratory rate 18 /min 18 /min eCW1 (Formerly [facility], 1928–1983) Heart rate 103 /min 103 /min eCW1 ([facility]) Body mass index (BMI) [Ratio] 27.11 kg/m2 27.11 kg/m2 W1 ([facility] [place]) Body height 67 [in_i] 67 [in_i] eCW1 (Counts include 234 beds at the [facility]) Body weight 173.08 [lb_av] 173.08 [lb_av] eCW1 ([facility] [place]) Diastolic blood pressure 78 mm[Hg] 78 mm[Hg] eCW1 ([facility] [place]) Systolic blood pressure 112 mm[Hg] 112 mm[Hg] e CW1 ([facility] [place] [facility]) Body temperature 97.1 [degF] 97.1 [degF] eCW1 ( [facility] [place]) Respiratory rate 18 /min 18 /min eCW1 (Formerly [facility], 1928–1983) Heart rate 102 /min 102 /min eCW1 ([facility]) Body mass index (BMI) [Ratio] 27.37 kg/m2 27.37 kg/m2 eCW1 ([facility] [place] [facility]) Body height 67 [in_i] 67 [in_i] eCW1 (Counts include 234 beds at the [facility]) Body weight 174.8 [lb_av] 174.8 [lb_av] eCW1 ([facility]) Diastolic blood pressure 68 mm[Hg] 68 mm[Hg] eCW1 ([facility] [place] [facility]) Systolic blood pressure 147 mm[Hg] 147 mm[Hg] e CW1 ([facility] [place]) Body temperature 97.0 [degF] 97.0 [degF] eCW1 ( [facility] [place]) Respiratory rate 18 /min 18 /min eCW1 (Formerly [facility], 1928–1983) Heart rate 99 /min 99 /min eCW1 ([facility]) Body mass index (BMI) [Ratio] 27.03 kg/m2 27.03 kg/m2 eCW1 ([facility] [place]) Body height 67 [in_i] 67 [in_i] eCW1 (Counts include 234 beds at the [facility]) Body weight 172.6 [lb_av] 172.6 [lb_av] eCW1 ([facility]) Body surface area Derived from formula 1.90 m2 1.90 m2 [facility] ([facility], ) Body weight 78.189 kg 78.189 kg [facility] ([facility], ) [place] body weight 135 [lb_av] 135 [lb_av] MEDEN T ([facility], ) Body mass index (BMI) [Ratio] 27.0 kg/m2 27.0 k g/m2 [facility] ([facility]) Body weight 172.38 [lb_av] 172.38 [lb_av] MEDEN T ([facility]) Body height 67 [in_i] 67 [in_i] [facility] ([facility]) 5'7" Diastolic blood pressure 80 mm[Hg] 80 mm[Hg] [facility] ([facility]) Systolic blood pressure 142 mm[Hg] 142 mm[Hg] [facility] ([facility]) Body weight 78.246 kg 78.246 kg [facility] ([facility]) [place] body weight 135 [lb_av] 135 [lb_av] MEDEN T ([facility]) Body mass index (BMI) [Ratio] 27.0 kg/m2 27.0 k g/m2 [facility] ([facility]) Body weight 172.50 [lb_av] 172.50 [lb_av] MEDEN T ([facility]) Body height 67 [in_i] 67 [in_i] [facility] ([facility]) 5'7" Diastolic blood pressure 86 mm[Hg] 86 mm[Hg] [facility] ([facility]) Systolic blood pressure 151 mm[Hg] 151 mm[Hg] [facility] ([facility]) Body weight 80.401 kg 80.401 kg [facility] ([facility]) Body mass index (BMI) [Ratio] 27.8 kg/m2 27.8 k g/m2 [facility] ([facility]) Body weight 177.25 [lb_av] 177.25 [lb_av] MEDEN T ([facility]) Body height 67 [in_i] 67 [in_i] [facility] ([facility]) 5'7" Diastolic blood pressure 76 mm[Hg] 76 mm[Hg] [facility] ([facility]) Systolic blood pressure 148 mm[Hg] 148 mm[Hg] [facility] ([facility]) Body weight 76.205 kg 76.205 kg [facility] ([facility]) Body mass index (BMI) [Ratio] 26.3 kg/m2 26.3 k g/m2 [facility] ([facility]) Body weight 168.00 [lb_av] 168.00 [lb_av] MEDEN T ([facility]) Body height 67 [in_i] 67 [in_i] [facility] ([facility]) 5'7" Diastolic blood pressure 82 mm[Hg] 82 mm[Hg] [facility] ([facility]) Systolic blood pressure 130 mm[Hg] 130 mm[Hg] M EDENT ([facility]) Diastolic blood pressure 70 mm[Hg] 70 mm[Hg] eCW1 ([facility] [place]) Systolic blood pressure 112 mm[Hg] 112 mm[Hg] e CW1 ([facility] [place]) Body temperature 97.1 [degF] 97.1 [degF] eCW1 ( [facility] [place]) Respiratory rate 18 /min 18 /min eCW1 (Formerly [facility], 1928–1983) Heart rate 105 /min 105 /min eCW1 ([facility]) Body mass index (BMI) [Ratio] 26.40 kg/m2 26.40 kg/m2 W1 ([facility] [place]) Body height 67 [in_i] 67 [in_i] eCW1 (Counts include 234 beds at the [facility]) Body weight 168.6 [lb_av] 168.6 [lb_av] eCW1 ([facility]) Diastolic blood pressure 86 mm[Hg] 86 mm[Hg] eCW1 ([facility] [place]) Systolic blood pressure 132 mm[Hg] 132 mm[Hg] e CW1 ([facility] [place]) Body temperature 97.3 [degF] 97.3 [degF] eCW1 ( [facility] [place]) Respiratory rate 18 /min 18 /min eCW1 (Formerly [facility], 1928–1983) Heart rate 94 /min 94 /min eCW1 ([facility]) Body mass index (BMI) [Ratio] 26.22 kg/m2 26.22 kg/m2 W1 ([facility] [place]) Body height 67 [in_i] 67 [in_i] eCW1 (Counts include 234 beds at the [facility]) Body weight 167.4 [lb_av] 167.4 [lb_av] eCW1 ([facility]) Diastolic blood pressure 56 mm[Hg] 56 mm[Hg] eCW1 ([facility] [place]) Systolic blood pressure 122 mm[Hg] 122 mm[Hg] e CW1 ([facility] [place]) Body temperature 98.0 [degF] 98.0 [degF] eCW1 ( [facility] [place]) Respiratory rate 18 /min 18 /min eCW1 (Formerly [facility], 1928–1983) Heart rate 88 /min 88 /min eCW1 ([facility]) Body mass index (BMI) [Ratio] 24.81 kg/m2 24.81 kg/m2 eCW1 ([facility] [place]) Body height 67 [in_i] 67 [in_i] eCW1 (Counts include 234 beds at the [facility]) Body weight 158.4 [lb_av] 158.4 [lb_av] eCW1 ([facility]) Diastolic blood pressure 60 mm[Hg] 60 mm[Hg] eCW1 ([facility] [place]) Systolic blood pressure 138 mm[Hg] 138 mm[Hg] e CW1 ([facility] [place]) Body temperature 97.3 [degF] 97.3 [degF] eCW1 ( [facility] [place]) Respiratory rate 18 /min 18 /min eCW1 (Formerly [facility], 1928–1983) Heart rate 98 /min 98 /min eCW1 ([facility]) Body mass index (BMI) [Ratio] 24.77 kg/m2 24.77 kg/m2 eCW1 ([facility] [place]) Body height 67 [in_i] 67 [in_i] eCW1 (Counts include 234 beds at the [facility]) Body weight 158.2 [lb_av] 158.2 [lb_av] eCW1 ([facility]) Diastolic blood pressure 60 mm[Hg] 60 mm[Hg] eCW1 ([facility] [place]) Systolic blood pressure 108 mm[Hg] 108 mm[Hg] e CW1 ([facility] [place]) Body temperature 97.1 [degF] 97.1 [degF] eCW1 ( [facility] [place]) Respiratory rate 18 /min 18 /min eCW1 (Formerly [facility], 1928–1983) Heart rate 82 /min 82 /min eCW1 ([facility]) Body mass index (BMI) [Ratio] 24.27 kg/m2 24.27 kg/m2 eCW1 ([facility] [place]) Body height 67 [in_i] 67 [in_i] eCW1 (Counts include 234 beds at the [facility]) Body weight 155 [lb_av] 155 [lb_av] eCW1 ([facility]) Diastolic blood pressure 80 mm[Hg] 80 mm[Hg] eCW1 ([facility] [place]) Systolic blood pressure 126 mm[Hg] 126 mm[Hg] e CW1 ([facility] [place]) Body temperature 98.9 [degF] 98.9 [degF] eCW1 ( [facility] [place]) Respiratory rate 20 /min 20 /min eCW1 (Formerly [facility], 1928–1983) Heart rate 110 /min 110 /min eCW1 ([facility]) Body mass index (BMI) [Ratio] 23.74 kg/m2 23.74 kg/m2 eCW1 ([facility] [place]) Body height 67 [in_i] 67 [in_i] eCW1 (Counts include 234 beds at the [facility]) Body weight 151.6 [lb_av] 151.6 [lb_av] eCW1 ([facility]) Diastolic blood pressure 72 mm[Hg] 72 mm[Hg] eCW1 ([facility] [place]) Systolic blood pressure 128 mm[Hg] 128 mm[Hg] e CW1 ([facility] [place]) Body temperature 97.8 [degF] 97.8 [degF] eCW1 ( [facility] [place]) Respiratory rate 18 /min 18 /min eCW1 (Formerly [facility], 1928–1983) Heart rate 89 /min 89 /min eCW1 ([facility]) Body mass index (BMI) [Ratio] 22.96 kg/m2 22.96 kg/m2 eCW1 ([facility] [place]) Body height 67 [in_i] 67 [in_i] eCW1 (Counts include 234 beds at the [facility]) Body weight 146.6 [lb_av] 146.6 [lb_av] eCW1 ([facility]) Diastolic blood pressure 60 mm[Hg] 60 mm[Hg] eCW1 ([facility] [place]) Systolic blood pressure 112 mm[Hg] 112 mm[Hg] e CW1 ([facility] [place]) Body temperature 98.1 [degF] 98.1 [degF] eCW1 ( [facility] [place]) Respiratory rate 18 /min 18 /min eCW1 (Formerly [facility], 1928–1983) Heart rate 87 /min 87 /min eCW1 ([facility]) Body mass index (BMI) [Ratio] 24.02 kg/m2 24.02 kg/m2 eCW1 ([facility] [place]) Body height 67 [in_i] 67 [in_i] eCW1 (Counts include 234 beds at the [facility]) Body weight 153.4 [lb_av] 153.4 [lb_av] eCW1 ([facility]) Diastolic blood pressure 60 mm[Hg] 60 mm[Hg] eCW1 ([facility] [place]) Systolic blood pressure 108 mm[Hg] 108 mm[Hg] e CW1 ([facility] [place]) Body temperature 96.7 [degF] 96.7 [degF] eCW1 ( [facility] [place]) Respiratory rate 18 /min 18 /min eCW1 (Formerly [facility], 1928–1983) Heart rate 87 /min 87 /min eCW1 ([facility]) Body mass index (BMI) [Ratio] 23.77 kg/m2 23.77 kg/m2 eCW1 ([facility] [place]) Body height 67 [in_us] 67 [in_us] eCW1 (Counts include 234 beds at the [facility]) Body weight Measured 151.8 [lb_av] 151.8 [lb_av ] eCW1 ([facility] [place]) Diastolic blood pressure 58 mm[Hg] 58 mm[Hg] eCW1 ([facility] [place]) Systolic blood pressure 112 mm[Hg] 112 mm[Hg] e CW1 ([facility] [place]) Body temperature 97.4 [degF] 97.4 [degF] eCW1 ( [facility] [place]) Respiratory rate 18 /min 18 /min eCW1 (Formerly [facility], 1928–1983) Heart rate 92 /min 92 /min eCW1 ([facility]) Body mass index (BMI) [Ratio] 23.71 kg/m2 23.71 kg/m2 eCW1 ([facility] [place]) Body height 67 [in_us] 67 [in_us] eCW1 (Counts include 234 beds at the [facility]) Body weight Measured 151.4 [lb_av] 151.4 [lb_av ] eCW1 ([facility] [place]) Diastolic blood pressure 53 mm[Hg] 53 mm[Hg] eCW1 ([facility] [place]) Systolic blood pressure 92 mm[Hg] 92 mm[Hg] e CW1 ([facility] [place]) Body temperature 98.2 [degF] 98.2 [degF] eCW1 ( [facility] [place]) Respiratory rate 16 /min 16 /min eCW1 (Formerly [facility], 1928–1983) Heart rate 80 /min 80 /min eCW1 ([facility]) Body mass index (BMI) [Ratio] 24.74 kg/m2 24.74 kg/m2 W1 ([facility] [place]) Body height 67 [in_us] 67 [in_us] eCW1 (Counts include 234 beds at the [facility]) Body weight Measured 158.0 [lb_av] 158.0 [lb_av ] eCW1 ([facility] [place]) Diastolic blood pressure 58 mm[Hg] 58 mm[Hg] eCW1 ([facility] [place]) Systolic blood pressure 108 mm[Hg] 108 mm[Hg] e CW1 ([facility] [place]) Body temperature 97.5 [degF] 97.5 [degF] eCW1 ( [facility] [place]) Respiratory rate 18 /min 18 /min eCW1 (Formerly [facility], 1928–1983) Heart rate 86 /min 86 /min eCW1 ([facility]) Body mass index (BMI) [Ratio] 24.34 kg/m2 24.34 kg/m2 eCW1 ([facility] [place]) Body height 67 [in_i] 67 [in_i] eCW1 (Counts include 234 beds at the [facility]) Body weight 155.4 [lb_av] 155.4 [lb_av] eCW1 ([facility]) Body mass index (BMI) [Ratio] 21.1 kg/m2 21.1 k g/m2 [facility] ([facility] Heart rate 74 /min 74 /min [...] Topical Cream 05/12/2020 12:00:00 AM EST eCW1 ([facility] [place]) Mometasone Furoate 50 MCG/ACT 04/12/2020 12:00:00 AM EST eCW1 ([facility] [place]) Doxycycline Monohydrate 100 MG Oral Capsule 04/12/2020 12:00:00 AM EST eCW1 ([facility] [place]) mesalamine 1000 MG Rectal Suppository 04/12/2020 12:00:00 AM EST eCW1 ([facility] [place]) Mometasone Furoate 50 MCG/ACT 04/12/2020 12:00:00 AM EST eCW1 ([facility] [place]) Doxycycline Monohydrate 100 MG Oral Capsule 04/12/2020 12:00:00 AM EST eCW1 ([facility] [place]) mesalamine 1000 MG Rectal Suppository 04/12/2020 12:00:00 AM EST eCW1 ([facility] [place]) Mometasone Furoate 50 MCG/ACT 04/12/2020 12:00:00 AM EST eCW1 ([facility] [place]) mesalamine 1000 MG Rectal Suppository 04/12/2020 12:00:00 AM EST eCW1 ([facility] [place]) Mometasone Furoate 50 MCG/ACT 04/12/2020 12:00:00 AM EST eCW1 ([facility] [place]) Doxycycline Monohydrate 100 MG Oral Capsule 04/12/2020 12:00:00 AM EST eCW1 ([facility] [place]) mesalamine 1000 MG Rectal Suppository 04/12/2020 12:00:00 AM EST eCW1 ([facility] [place]) Mometasone Furoate 50 MCG/ACT 04/12/2020 12:00:00 AM EST eCW1 ([facility] [place] [facility]) Doxycycline Monohydrate 100 MG Oral Capsule 04/12/2020 12:00:00 AM EST eCW1 ([facility] [place] [facility]) mesalamine 1000 MG Rectal Suppository 04/12/2020 12:00:00 AM EST eCW1 ([facility] [place]) Mometasone Furoate 50 MCG/ACT 04/12/2020 12:00:00 AM EST eCW1 ([facility] [place] [facility]) Doxycycline Monohydrate 100 MG Oral Capsule 04/12/2020 12:00:00 AM EST eCW1 ([facility] [place] [facility]) mesalamine 1000 MG Rectal Suppository 04/12/2020 12:00:00 AM EST eCW1 ([facility] [place] [facility]) Mometasone Furoate 50 MCG/ACT 04/12/2020 12:00:00 AM EST eCW1 ([facility] [place] [facility]) Doxycycline Monohydrate 100 MG Oral Capsule 04/12/2020 12:00:00 AM EST eCW1 ([facility] [place] [facility]) mesalamine 1000 MG Rectal Suppository 04/12/2020 12:00:00 AM EST eCW1 ([facility] [place] [facility]) Mometasone Furoate 50 MCG/ACT 04/12/2020 12:00:00 AM EST eCW1 ([facility] [place] [facility]) Doxycycline Monohydrate 100 MG Oral Capsule 04/12/2020 12:00:00 AM EST eCW1 ([facility] [place] [facility]) mesalamine 1000 MG Rectal Suppository 04/12/2020 12:00:00 AM EST eCW1 ([facility] [place] [facility]) Mometasone Furoate 50 MCG/ACT 04/12/2020 12:00:00 AM EST eCW1 ([facility] [place] [facility]) Doxycycline Monohydrate 100 MG Oral Capsule 04/12/2020 12:00:00 AM EST eCW1 ([facility] [place] [facility]) mesalamine 1000 MG Rectal Suppository 04/12/2020 12:00:00 AM EST eCW1 ([facility] [place] [facility]) Mometasone Furoate 50 MCG/ACT 04/12/2020 12:00:00 AM EST eCW1 ([facility] [place] [facility]) Doxycycline Monohydrate 100 MG Oral Capsule 04/12/2020 12:00:00 AM EST eCW1 ([facility] [place] [facility]) Doxycycline Monohydrate 100 MG Oral Capsule 04/12/2020 12:00:00 AM EST eCW1 ([facility] [place] [facility]) mesalamine 1000 MG Rectal Suppository 04/12/2020 12:00:00 AM EST eCW1 ([facility] [place] [facility]) mesalamine 1000 MG Rectal Suppository 04/12/2020 12:00:00 AM EST eCW1 ([facility] [place] [facility]) Mometasone Furoate 50 MCG/ACT 04/12/2020 12:00:00 AM EST eCW1 ([facility] [place] [facility]) Doxycycline Monohydrate 100 MG Oral Capsule 04/12/2020 12:00:00 AM EST eCW1 ([facility] [place]) Mometasone Furoate 50 MCG/ACT 04/12/2020 12:00:00 AM EST eCW1 ([facility] [place] [facility]) mesalamine 1000 MG Rectal Suppository 04/12/2020 12:00:00 AM EST eCW1 ([facility] [place] [facility]) Doxycycline Monohydrate 100 MG Oral Capsule 04/12/2020 12:00:00 AM EST eCW1 ([facility] [place] [facility]) Doxycycline Monohydrate 100 MG Oral Capsule 04/12/2020 12:00:00 AM EST eCW1 ([facility] [place] [facility]) Mometasone Furoate 50 MCG/ACT 04/12/2020 12:00:00 AM EST eCW1 ([facility] [place]) mesalamine 1000 MG Rectal Suppository 04/12/2020 12:00:00 AM EST eCW1 ([facility] [place]) Doxycycline Monohydrate 100 MG Oral Capsule 04/12/2020 12:00:00 AM EST eCW1 ([facility] [place]) Mometasone Furoate 50 MCG/ACT 04/12/2020 12:00:00 AM EST eCW1 ([facility] [place]) mesalamine 1000 MG Rectal Suppository 04/12/2020 12:00:00 AM EST eCW1 (Formerly [facility]) Doxycycline Monohydrate 100 MG Oral Capsule 04/12/2020 12:00:00 AM EST eCW1 (Formerly [facility]) Mometasone Furoate 50 MCG/ACT 04/12/2020 12:00:00 AM EST eCW1 (Formerly [facility]) mesalamine 1000 MG Rectal Suppository 04/12/2020 12:00:00 AM EST eCW1 (Formerly [facility]) doxycycline hyclate 100 MG Oral Tablet 03/20/2020 12:00:00 AM EST eCW1 (Formerly [facility]) doxycycline hyclate 100 MG Oral Tablet 03/20/2020 12:00:00 AM EST eCW1 (Formerly [facility]) doxycycline hyclate 100 MG Oral Tablet 03/20/2020 12:00:00 AM EST eCW1 (Formerly [facility]) doxycycline hyclate 100 MG Oral Tablet 03/20/2020 12:00:00 AM EST eCW1 (Formerly [facility]) doxycycline hyclate 100 MG Oral Tablet 03/20/2020 12:00:00 AM EST eCW1 (Formerly [facility]) 3 ML liraglutide 6 MG/ML Pen Injector [Victoza] 03/17/2020 12:00:00 AM EST eCW1 (Formerly [facility]) 3 ML liraglutide 6 MG/ML Pen Injector [Victoza] 03/17/2020 12:00:00 AM EST eCW1 (Formerly [facility]) 3 ML liraglutide 6 MG/ML Pen Injector [Victoza] 03/17/2020 12:00:00 AM EST eCW1 (Formerly [facility]) 3 ML liraglutide 6 MG/ML Pen Injector [Victoza] 03/17/2020 12:00:00 AM EST eCW1 (Formerly [facility]) 3 ML liraglutide 6 MG/ML Pen Injector [Victoza] 03/17/2020 12:00:00 AM EST eCW1 (Formerly [facility]) 3 ML liraglutide 6 MG/ML Pen Injector [Victoza] 03/17/2020 12:00:00 AM EST eCW1 (Formerly [facility]) 3 ML liraglutide 6 MG/ML Pen Injector [Victoza] 03/17/2020 12:00:00 AM EST eCW1 (Formerly [facility]) 3 ML liraglutide 6 MG/ML Pen Injector [Victoza] 03/17/2020 12:00:00 AM EST eCW1 (Formerly [facility]) 3 ML liraglutide 6 MG/ML Pen Injector [Victoza] 03/17/2020 12:00:00 AM EST eCW1 (Formerly [facility]) 3 ML liraglutide 6 MG/ML Pen Injector [Victoza] 03/17/2020 12:00:00 AM EST eCW1 (Formerly [facility]) 3 ML liraglutide 6 MG/ML Pen Injector [Victoza] 03/17/2020 12:00:00 AM EST eCW1 (Formerly [facility]) 3 ML liraglutide 6 MG/ML Pen Injector [Victoza] 03/17/2020 12:00:00 AM EST eCW1 (Formerly [facility]) 3 ML liraglutide 6 MG/ML Pen Injector [Victoza] 03/17/2020 12:00:00 AM EST eCW1 (Formerly [facility]) 3 ML liraglutide 6 MG/ML Pen Injector [Victoza] 03/17/2020 12:00:00 AM EST eCW1 ([facility]ly [facility]) 3 ML liraglutide 6 MG/ML Pen Injector [Victoza] 03/17/2020 12:00:00 AM EST eCW1 ([facility]ly [facility]) 3 ML liraglutide 6 MG/ML Pen Injector [Victoza] 03/17/2020 12:00:00 AM EST eCW1 ([facility]ly [facility]) Sodium Chloride 0.9 % 03/17/2020 12:00:00 AM EST eCW1 ([facility]ly [facility]) 3 ML liraglutide 6 MG/ML Pen Injector [Victoza] 03/17/2020 12:00:00 AM EST eCW1 (Formerly [facility]) ciclopirox 80 MG/ML Topical Solution 03/17/2020 12:00:00 AM EST eCW1 (Formerly [facility]) Doxycycline Monohydrate 100 MG Oral Tablet 01/24/2020 12:00:00 AM E DT eCW1 ([facility]ly [facility]) Doxycycline Monohydrate 100 MG Oral Tablet 01/24/2020 12:00:00 AM E DT eCW1 ([facility]ly [facility]) Estradiol 0.1 MG/ML Vaginal Cream 10/15/2019 12:00:00 AM EDT eCW1 ([facility]ly [facility]) Estradiol 0.1 MG/ML Vaginal Cream 10/15/2019 12:00:00 AM EDT eCW1 ([facility]) Estradiol 0.1 MG/ML Vaginal Cream 10/15/2019 12:00:00 AM EDT eCW1 ([facility]) Estradiol 0.1 MG/ML Vaginal Cream 10/15/2019 12:00:00 AM EDT eCW1 ([facility]) Estradiol 0.1 MG/ML Vaginal Cream 10/15/2019 12:00:00 AM EDT eCW1 ([facility]) Estradiol 0.1 MG/ML Vaginal Cream 10/15/2019 12:00:00 AM EDT eCW1 ([facility]) Estradiol 0.1 MG/ML Vaginal Cream 10/15/2019 12:00:00 AM EDT eCW1 (Formerly [facility]) Estrogens, Conjugated (SNF) 0.625 MG/ML Vaginal Cream [Premarin] 10/01/2019 12:00:00 AM EDT eCW1 ([facility]) Estrogens, Conjugated (SNF) 0.625 MG/ML Vaginal Cream [Premarin] 10/01/2019 12:00:00 AM EDT eCW1 ([facility]) Estrogens, Conjugated (SNF) 0.625 MG/ML Vaginal Cream [Premarin] 10/01/2019 12:00:00 AM EDT eCW1 ([facility]) Estrogens, Conjugated (SNF) 0.625 MG/ML Vaginal Cream [Premarin] 10/01/2019 12:00:00 AM EDT eCW1 ([facility]) Hydromorphone Hydrochloride 4 MG Oral Tablet 09/17/2019 12:00:00 AM EDT eCW1 (Formerly [facility]) Hydromorphone Hydrochloride 4 MG Oral Tablet 09/17/2019 12:00:00 AM EDT eCW1 ([facility]) Hydromorphone Hydrochloride 4 MG Oral Tablet 09/17/2019 12:00:00 AM EDT eCW1 ([facility]) Hydromorphone Hydrochloride 4 MG Oral Tablet 09/17/2019 12:00:00 AM EDT eCW1 ([facility]) Hydromorphone Hydrochloride 4 MG Oral Tablet 09/17/2019 12:00:00 AM EDT eCW1 ([facility]) Hydromorphone Hydrochloride 4 MG Oral Tablet 09/17/2019 12:00:00 AM EDT eCW1 ([facility]) Hydromorphone Hydrochloride 4 MG Oral Tablet 09/17/2019 12:00:00 AM EDT eCW1 ([facility]) Hydromorphone Hydrochloride 4 MG Oral Tablet 09/17/2019 12:00:00 AM EDT eCW1 ([facility]) Hydromorphone Hydrochloride 4 MG Oral Tablet 09/17/2019 12:00:00 AM EDT eCW1 ([facility]) Metronidazole 500 MG Oral Tablet 09/10/2019 12:00:00 AM EDT eCW1 ([facility]) Hydromorphone Hydrochloride 4 MG Oral Tablet 09/09/2019 12:00:00 AM EDT eCW1 ([facility]) Hydromorphone Hydrochloride 4 MG Oral Tablet 09/01/2019 12:00:00 AM EDT eCW1 ([facility]) Hydromorphone Hydrochloride 4 MG Oral Tablet 08/28/2019 12:00:00 AM EDT eCW1 ([facility]) Hydromorphone Hydrochloride 4 MG Oral Tablet 08/20/2019 12:00:00 AM EDT eCW1 ([facility]) Hydromorphone Hydrochloride 4 MG Oral Tablet 08/11/2019 12:00:00 AM EDT eCW1 ([facility]) tizanidine 2 MG Oral Tablet 07/28/2019 12:00:00 AM EDT eCW1 ([facility]) Hydromorphone Hydrochloride 4 MG Oral Tablet 07/28/2019 12:00:00 AM EDT eCW1 ([facility]) Doxycycline Monohydrate 100 MG Oral Capsule 07/26/2019 12:00:00 AM EDT eCW1 ([facility]ly [facility]) Pen Kechi 5/16" 07/22/2019 12:00:00 AM EDT eCW1 ([facility]) Pen Kechi 5/16" 07/22/2019 12:00:00 AM EDT eCW1 ([facility]) Pen Kechi 5/16" 07/22/2019 12:00:00 AM EDT eCW1 ([facility]) Pen Kechi 5/16" 07/22/2019 12:00:00 AM EDT eCW1 ([facility]) Pen Kechi 5/16" 07/22/2019 12:00:00 AM EDT eCW1 ([facility]) Pen Kechi 5/16" 07/22/2019 12:00:00 AM EDT eCW1 ([facility]) Pen Kechi 5/16" 07/22/2019 12:00:00 AM EDT eCW1 ([facility]) Pen Kechi 5/16" 07/22/2019 12:00:00 AM EDT eCW1 ([facility]ly [facility]) Levemir Flex Touch 100 UNIT/ML 07/16/2019 12:00:00 AM EDT eCW1 ([facility]) Levemir Flex Touch 100 UNIT/ML 07/16/2019 12:00:00 AM EDT eCW1 ([facility]) Levemir Flex Touch 100 UNIT/ML 07/16/2019 12:00:00 AM EDT eCW1 ([facility]) Levemir Flex Touch 100 UNIT/ML 07/16/2019 12:00:00 AM EDT eCW1 ([facility]) Levemir Flex Touch 100 UNIT/ML 07/16/2019 12:00:00 AM EDT eCW1 ([facility]) Levemir Flex Touch 100 UNIT/ML 07/16/2019 12:00:00 AM EDT eCW1 ([facility]) Levemir Flex Touch 100 UNIT/ML 07/16/2019 12:00:00 AM EDT eCW1 ([facility]) Levemir Flex Touch 100 UNIT/ML 07/16/2019 12:00:00 AM EDT eCW1 ([facility]) Levemir Flex Touch 100 UNIT/ML 07/16/2019 12:00:00 AM EDT eCW1 ([facility]) Levemir Flex Touch 100 UNIT/ML 07/16/2019 12:00:00 AM EDT eCW1 ([facility]) Levemir Flex Touch 100 UNIT/ML 07/16/2019 12:00:00 AM EDT eCW1 ([facility]) Levemir Flex Touch 100 UNIT/ML 07/16/2019 12:00:00 AM EDT eCW1 ([facility]) Levemir Flex Touch 100 UNIT/ML 07/16/2019 12:00:00 AM EDT eCW1 ([facility]) Levemir Flex Touch 100 UNIT/ML 07/16/2019 12:00:00 AM EDT eCW1 ([facility]) Levemir Flex Touch 100 UNIT/ML 07/16/2019 12:00:00 AM EDT eCW1 ([facility]) Levemir Flex Touch 100 UNIT/ML 07/16/2019 12:00:00 AM EDT eCW1 ([facility]) Levemir Flex Touch 100 UNIT/ML 07/16/2019 12:00:00 AM EDT eCW1 ([facility]) Levemir Flex Touch 100 UNIT/ML 07/16/2019 12:00:00 AM EDT eCW1 ([facility]) Levemir Flex Touch 100 UNIT/ML 07/16/2019 12:00:00 AM EDT eCW1 ([facility]) Levemir Flex Touch 100 UNIT/ML 07/16/2019 12:00:00 AM EDT eCW1 ([facility]) Hydromorphone Hydrochloride 4 MG Oral Tablet 07/16/2019 12:00:00 AM EDT eCW1 ([facility]) Nystatin 100 UNT/MG Topical Powder 07/16/2019 12:00:00 AM EDT eCW1 ([facility]) Levemir Flex Touch 100 UNIT/ML 07/16/2019 12:00:00 AM EDT eCW1 ([facility]) Hydromorphone Hydrochloride 4 MG Oral Tablet 07/09/2019 12:00:00 AM EDT eCW1 ([facility]) Alcohol Prep Pad 70 % 07/05/2019 12:00:00 AM EDT eCW1 ([facility]) Alcohol Prep Pad 70 % 07/05/2019 12:00:00 AM EDT eCW1 ([facility]) Alcohol Prep Pad 70 % 07/05/2019 12:00:00 AM EDT eCW1 ([facility]) Alcohol Prep Pad 70 % 07/05/2019 12:00:00 AM EDT eCW1 ([facility]) Alcohol Prep Pad 70 % 07/05/2019 12:00:00 AM EDT eCW1 ([facility]) Alcohol Prep Pad 70 % 07/05/2019 12:00:00 AM EDT eCW1 ([facility]) Alcohol Prep Pad 70 % 07/05/2019 12:00:00 AM EDT eCW1 ([facility]) Alcohol Prep Pad 70 % 07/05/2019 12:00:00 AM EDT eCW1 ([facility]) Alcohol Prep Pad 70 % 07/05/2019 12:00:00 AM EDT eCW1 ([facility]) Alcohol Prep Pad 70 % 07/05/2019 12:00:00 AM EDT eCW1 ([facility]) Metoclopramide 10 MG Oral Tablet 07/03/2019 12:00:00 AM EDT eCW1 ([facility]) ammonium lactate 120 MG/ML Topical Cream 07/03/2019 12:00:00 AM EDT eCW1 ([facility]) Metoclopramide 10 MG Oral Tablet 07/03/2019 12:00:00 AM EDT eCW1 ([facility]) ammonium lactate 120 MG/ML Topical Cream 07/03/2019 12:00:00 AM EDT eCW1 ([facility]) Metoclopramide 10 MG Oral Tablet 07/03/2019 12:00:00 AM EDT eCW1 ([facility]) ammonium lactate 120 MG/ML Topical Cream 07/03/2019 12:00:00 AM EDT eCW1 ([facility]) Metoclopramide 10 MG Oral Tablet 07/03/2019 12:00:00 AM EDT eCW1 ([facility]) ammonium lactate 120 MG/ML Topical Cream 07/03/2019 12:00:00 AM EDT eCW1 ([facility]) Metoclopramide 10 MG Oral Tablet 07/03/2019 12:00:00 AM EDT eCW1 ([facility]) ammonium lactate 120 MG/ML Topical Cream 07/03/2019 12:00:00 AM EDT eCW1 ([facility]) Metoclopramide 10 MG Oral Tablet 07/03/2019 12:00:00 AM EDT eCW1 ([facility]) ammonium lactate 120 MG/ML Topical Cream 07/03/2019 12:00:00 AM EDT eCW1 ([facility]) Metoclopramide 10 MG Oral Tablet 07/03/2019 12:00:00 AM EDT eCW1 ([facility]) ammonium lactate 120 MG/ML Topical Cream 07/03/2019 12:00:00 AM EDT eCW1 ([facility]) Metoclopramide 10 MG Oral Tablet 07/03/2019 12:00:00 AM EDT eCW1 ([facility]) ammonium lactate 120 MG/ML Topical Cream 07/03/2019 12:00:00 AM EDT eCW1 ([facility]) Metoclopramide 10 MG Oral Tablet 07/03/2019 12:00:00 AM EDT eCW1 ([facility]) ammonium lactate 120 MG/ML Topical Cream 07/03/2019 12:00:00 AM EDT eCW1 ([facility]) Metoclopramide 10 MG Oral Tablet 07/03/2019 12:00:00 AM EDT eCW1 ([facility]) Metoclopramide 10 MG Oral Tablet 07/03/2019 12:00:00 AM EDT eCW1 ([facility]) ammonium lactate 120 MG/ML Topical Cream 07/03/2019 12:00:00 AM EDT eCW1 ([facility]) Metoclopramide 10 MG Oral Tablet 07/03/2019 12:00:00 AM EDT eCW1 ([facility]) ammonium lactate 120 MG/ML Topical Cream 07/03/2019 12:00:00 AM EDT eCW1 ([facility]) ammonium lactate 120 MG/ML Topical Cream 07/03/2019 12:00:00 AM EDT eCW1 ([facility]) Metoclopramide 10 MG Oral Tablet 07/03/2019 12:00:00 AM EDT eCW1 ([facility]) ammonium lactate 120 MG/ML Topical Cream 07/03/2019 12:00:00 AM EDT eCW1 ([facility]) Metoclopramide 10 MG Oral Tablet 07/03/2019 12:00:00 AM EDT eCW1 ([facility]) ammonium lactate 120 MG/ML Topical Cream 07/03/2019 12:00:00 AM EDT eCW1 ([facility]) Metoclopramide 10 MG Oral Tablet 07/03/2019 12:00:00 AM EDT eCW1 ([facility]) ammonium lactate 120 MG/ML Topical Cream 07/03/2019 12:00:00 AM EDT eCW1 ([facility]) Metoclopramide 10 MG Oral Tablet 07/03/2019 12:00:00 AM EDT eCW1 ([facility]) Hydromorphone Hydrochloride 4 MG Oral Tablet 07/03/2019 12:00:00 AM EDT eCW1 ([facility]) Glucometer 06/24/2019 12:00:00 AM EDT e CW1 ([facility]ly [facility]) Lancets Misc. - 06/24/2019 12:00:00 AM EDT eCW1 ([facility]) Test Strips - 06/24/2019 12:00:00 AM EDT eCW1 ([facility]) Hydromorphone Hydrochloride 4 MG Oral Tablet 06/24/2019 12:00:00 AM EDT eCW1 ([facility]) Hydromorphone Hydrochloride 4 MG Oral Tablet 06/17/2019 12:00:00 AM EST eCW1 ([facility]) Hydromorphone Hydrochloride 4 MG Oral Tablet 06/11/2019 12:00:00 AM EST eCW1 (Formerly [facility]) Hospital bed 06/02/2019 12:00:00 AM EST e CW1 ([facility]) Hydromorphone Hydrochloride 4 MG Oral Tablet 05/26/2019 12:00:00 AM EST eCW1 ([facility]) Hydromorphone Hydrochloride 4 MG Oral Tablet 05/13/2019 12:00:00 AM EST eCW1 ([facility]) Hydromorphone HCl 4 MG 05/05/2019 12:00:00 AM EST eCW1 ([facility]) Hydromorphone Hydrochloride 4 MG Oral Tablet 05/01/2019 12:00:00 AM EST eCW1 ([facility]) Hydromorphone Hydrochloride 4 MG Oral Tablet 04/22/2019 12:00:00 AM EST eCW1 ([facility]) Doxycycline Monohydrate 100 MG Oral Tablet 04/20/2019 12:00:[address] eCW1 ([facility]) Hydromorphone Hydrochloride 4 MG Oral Tablet 04/13/2019 12:00:00 AM EST eCW1 ([facility]) Hydromorphone Hydrochloride 4 MG Oral Tablet 04/02/2019 12:00:00 AM EST eCW1 ([facility]) Spiriva Respimat 1.25 mcg/actuation inhalation mist 11/12/19 19 08:21:22 AM EDT JUAN DANIEL ([facility])
[2020-05-28] MEDS ORDERED: cefTRIAXone SOD 1GM VIAL (J0696 PER 250MG) IM ONE (09:45)
[2020-05-28] MEDS ORDERED: LIDOCAINE 1% SDV 5ML VIAL DILUENT ONE (09:45)
--- OUTSIDE RECORDS SUMMARY | 2020-05-28 09:59 | CCD ---
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 Name Role Phone Komal Campuzano JR, MD [...] Unavailable Komal Campuzano JR, MD Unavailable Unavailable Komla Campuzano JR, MD Unavailable Unavailable Komal Campuzano [...] Unavailable Unavailable Shabnam, Tawnya Toribio Unavailable Unavailable Caro, Tawnya Toribio Unavailable Unavailable Shabnam, Tawnya Toribio Unavailable Unavailable Caro, Tawnya Toribio Unavailable Unavailable Caro, Tawnya Toribio Unavailable Unavailable MOFFA, VICKI HURD MD Unavailable Unavailable MOFFA, VICKI HURD MD Unavailable Unavailable MOFFA, VCIKI HURD MD Unavailable Unavailable MOFFA, VICKI HURD MD Unavailable Unavailable MOFFA, VICKI HURD MD Unavailable Unavailable MOFFA, VICKI HURD MD Unavailable Unavailable MOFFA, VICKI HURD MD Unavailable Unavailable MOFFA, VICKI HURD MD Unavailable Unavailable MOFFA, VICKI HURD MD Unavailable Unavailable MOFFA, IVCKI HURD MD Unavailable Unavailable MOFFA, VICKI HURD [...] VICKI HURD MD Unavailable Unavailable MOFFA, VICKI HRUD MD Unavailable Unavailable MOFFA, VICKI HURD MD [...] Unavailable Unavailable Keven Sanchez MD Unavailable Unavailable Kveen Sanchez MD Unavailable Unavailable Keven Sanchez MD [...] MD Unavailable Unavailable Agustín SARAH DO Unavailable [phone] Agustín SARAH DO Unavailable [phone] Agustín SARAH DO Unavailable [phone] GLORIA, A. MAR DO Unavailable [phone] [...] is protected by Article 27-F of the [facility] Public Health law. If you continue you may have access to information: Regarding HIV / AIDS; Provided by facilities licensed or operated by the [facility] Office of Mental Health; or Provided by the [facility] Office for People With Developmental Disabilities. If such information is present, then the following [facility] mandated warning applies: This information has [...] law may result in a fine or halfway sentence or both. A general authorization for the release of medical or other information is NOT sufficient authorization for further disc losure. Allergies and Adverse Reactions Type Description Substance Reaction Status Data Source(s ) Drug intolerance Lyrica Pregabalin Active JUAN DANIEL (Jhony Lowery MD [facility]) Allergy to substance Active Red Dye Active GREE NWAY (Jhony Lowery MD [facility]) Drug allergy Meperidine and Related Meperidine and Related Active JUAN DANIEL (Jhony Lowery MD [facility]) Drug intolerance Gabitril tiaGABine HCl Active GREEN WAY (Jhony Lowery MD [facility]) Drug intolerance Albuterol Inhalation Inhaler Albuterol A ctive JUAN DANIEL (Jhony Lowery MD [facility]) Drug allergy Duragesic fentaNYL Active JUAN DANIEL (Champ Lowery MD [facility]) Drug intolerance midazolam hydrochloride Midazolam HCl Act nba JUAN DANIEL (Jhony Lowery MD [facility]) Drug intolerance promethazine hydrochloride Promethazine HCl Active JUAN DANIEL (Jhony Lowery MD [facility]) Drug intolerance aspirin Aspirin Active JUAN DANIEL (Jhony Lowery MD [facility]) Drug allergy baclofen Baclofen Active JUAN DANIEL (Champ Lowery MD [facility]) Drug allergy Codeine Oral Capsule Codeine Active GR EENWAY (Jhony Lowery MD [facility]) Drug allergy Hydrocodone Oral Capsule Hydrocodone Active JUAN DANIEL (Jhony Lowery MD [facility]) Drug allergy Duramorph Morphine Sulfate Active GREENW AY (Jhony Lowery MD [facility]) Drug allergy Propoxyphene Propoxyphene Active JUAN DANIEL (Jhony Lowery MD [facility]) Drug intolerance droperidol Droperidol Active JUAN DANIEL (Jhony Lowery MD [facility]) Drug intolerance Lorazepam 0.25 MG Oral Tablet Lorazepam Active JUAN DANIEL (Johny Lowery MD [facility]) Drug intolerance Iodine Tincture External Iodine Tincture Active JUAN DANIEL (Jhony Lowery MD [facility]) Drug intolerance Lidoderm Lidocaine Active JUAN DANIEL (Jhony Lowery MD [facility]) Drug intolerance Endy-24 Theophylline ER Active GRE ENWAY (Jhony Lowery MD [facility]) Allergy to substance Active Grape Active GREE NWAY (Jhony Lowery MD [facility]) Allergy to substance Active Latex Active GREE NWAY (Jhony Lowery MD [facility]) Allergy to substance Active Strawberries Active GR EENWAY (Jhony Lowery MD [facility]) Allergy to substance Active Tomatoes Active GREE NWAY (Jhony Lowery MD [facility]) Drug allergy Tequin Ophthalmic Solution Tequin Active JUAN DANIEL (Jhony Lowery MD [facility]) Drug allergy Ipratropium [place] 18 MCG/ACT Inhalatio n Aerosol Solution Ipratropium [place] Active JUAN DANIEL (Jhony Lowery MD [facility]) Drug allergy Mesoridazine Oral Tablet Mesoridazine Active JUAN DANIEL (Jhony Lowery MD [facility]) Drug allergy chlorpromazine hydrochloride chlorproMAZINE HCl Active JUAN DANIEL (Jhony Lowery MD [facility]) Drug allergy trifluoperazine hydrochloride Trifluoperazine HCl Active JUAN DANIEL (Jhony Lowery MD [facility]) Drug allergy Azithromycin Powder Azithromycin Active G REENWAY (Jhony Lowery MD [facility]) Drug allergy Neurontin Gabapentin Active JUAN DANIEL (Champ Lowery MD [facility]) Drug allergy Tramadol Oral Tablet Tramadol Active GR EENWAY (Jhony Lowery MD [facility]) Allergy to substance Active Adhesive Tape Active G REENWAY (Jhony Lowery MD [facility]) Drug allergy Ciprofloxacin Oral Tablet Ciprofloxacin Activ e JUAN DANIEL (Jhony Lowery MD [facility]) Drug allergy probenecid Probenecid Active JUAN DANIEL (Champ Lowery MD [facility]) Drug allergy Endocet oxyCODONE-Acetaminophen Active JUAN DANIEL (Jhony Lowery MD [facility]) Drug allergy fluphenazine hydrochloride fluPHENAZine HCl A ctive JUAN DANIEL (Jhony Lowery MD [facility]) Drug allergy Compazine Prochlorperazine Active GREENW AY (Jhony Lowery MD [facility]) Drug allergy Penicillins Penicillins Active JUAN DANIEL ( Jhony Lowery MD [facility]) Drug allergy Sulfa Antibiotics Sulfa Antibiotics Active JUAN DANIEL (Jhony Lowery MD [facility]) Allergy to substance Active Contrast IV Dye Active JUAN DANIEL (Jhony Lowery MD [facility]) Baclofen Baclofen Baclofen 5 MG Oral Tablet affected nervous syt Active eCW1 ([facility]) red food dye red food dye red food dye rash Active eCW1 ([facility]) lidoderm (licocanine) lidoderm (licocanine) lidoderm (licocanine) h eart races Active eCW1 ([facility]) sulfa sulfa sulfa Hives Active eCW1 ([facility]) iodine iodine iodine nerves, tight muscles Active eC W1 ([facility]) phenothiazines phenothiazines phenothiazines nervous system Active eCW1 ([facility]) quinolones- cipro,tequin quinolones- cipro,tequin quinolones- ci pro,tequin Hives Active eCW1 ([facility]) Vicodin Vicodin Vicodin Confusion Active eCW1 ([facility]) Readi-Cat Readi-Cat Readi-Cat Hives Active eCW1 ([facility]) Drug allergy Albuterol Sulfate Albuterol cough Active eCW1 ([facility]) Drug allergy Fentanyl Fentanyl nervous Active eCW1 ([facility]) aspirin Aspirin Aspirin Hives Active eCW1 ([facility]) Drug allergy Gabapentin gabapentin nervous system,shakey Active eCW1 ([facility]) Drug allergy Tramadol Tramadol shakes Active eCW1 ([facility]) Drug allergy Oxycodone Drug allergy vomiting,hives Active eCW1 ([facility]) Drug allergy Ativan Lorazepam hallucinations Active eCW1 ([facility]) Drug allergy Promethazine HCl Promethazine out of body experience Ac tive eCW1 ([facility]) ketorolac Ketorolac Tromethamine Ketorolac vomiting Active eC W1 ([facility]) Drug allergy Gabitril tiagabine nervous Active eCW1 ([facility]) Drug allergy Gastrografin Drug allergy Only 1 bottle pe r test day (can not tolerate any more than 1 bottle) Active eCW1 [facility] codeine Codeine Sulfate Codeine out of body experience Active eCW1 ([facility]) Drug allergy Morphine Sulfate Morphine severe h/a with big dose Ac tive eCW1 ([facility]) Drug allergy Meperidine HCl Meperidine out of body experience Active eCW1 ([facility]) Drug allergy Azithromycin Azithromycin hives Active eCW1 ([facility]) Drug allergy Droperidol Droperidol out of body Active eCW1 ([facility]) Drug allergy Macrobid nitrofurantoin, macr ocrystals / nitrofurantoin, monohydrate Hives, blurred vision Active eCW1 ([facility]) Baclofen Baclofen Baclofen 5 MG Oral Tablet affected nervous syt Active eCW1 ([facility]) red food dye red food dye red food dye rash Active eCW1 ([facility]) lidoderm (licocanine) lidoderm (licocanine) lidoderm (licocanine) h eart races Active eCW1 ([facility]) sulfa sulfa sulfa Hives Active eCW1 ([facility]) iodine iodine iodine nerves, tight muscles Active eC W1 ([facility]) phenothiazines phenothiazines phenothiazines nervous system Active eCW1 ([facility]) quinolones- cipro,tequin quinolones- cipro,tequin quinolones- ci pro,tequin Hives Active eCW1 ([facility]) Vicodin Vicodin Vicodin Confusion Active eCW1 ([facility]) Readi-Cat Readi-Cat Readi-Cat Hives Active eCW1 ([facility]) Baclofen Baclofen Baclofen 5 MG Oral Tablet affected nervous syt Active eCW1 ([facility]) red food dye red food dye red food dye rash Active eCW1 ([facility]) lidoderm (licocanine) lidoderm (licocanine) lidoderm (licocanine) h eart races Active eCW1 ([facility]) sulfa sulfa sulfa Hives Active eCW1 ([facility]) iodine iodine iodine nerves, tight muscles Active eC W1 ([facility]) phenothiazines phenothiazines phenothiazines nervous system Active eCW1 ([facility]) quinolones- cipro,tequin quinolones- cipro,tequin quinolones- ci pro,tequin Hives Active eCW1 ([facility]) Vicodin Vicodin Vicodin Confusion Active eCW1 ([facility]) Readi-Cat Readi-Cat Readi-Cat Hives Active eCW1 ([facility]) Baclofen Baclofen Baclofen 5 MG Oral Tablet affected nervous syt Active eCW1 ([facility]) lidoderm (licocanine) lidoderm (licocanine) lidoderm (licocanine) h eart races Active eCW1 ([facility]) sulfa sulfa sulfa Hives Active eCW1 ([facility]) iodine iodine iodine nerves, tight muscles Active eC W1 ([facility]) phenothiazines phenothiazines phenothiazines nervous system Active eCW1 ([facility]) quinolones- cipro,tequin quinolones- cipro,tequin quinolones- ci pro,tequin Hives Active eCW1 ([facility]) red food dye red food dye red food dye rash Active eCW1 ([facility]) Vicodin Vicodin Vicodin Confusion Active eCW1 ([facility]) Readi-Cat Readi-Cat Readi-Cat Hives Active eCW1 ([facility]) Family History Family Member Name Family Member Gender Family Member Status Date o f Status Description Data Source(s) Unknown Female Problem MEDENT ([facility]) Encounters Encounter Providers Location Date Indications Data Source(s ) [place] [address] [address] 05/22/2020 12:00:00 AM EST eCW1 ([facility]) [place] [address] [address] 05/11/2020 12:00:00 AM EST eCW1 ([facility]) [place] [address] [address] 05/09/2020 12:00:00 AM EST eCW1 ([facility]) [place] [address] [address] 05/08/2020 12:00:00 AM EST eCW1 ([facility]) [place] [address] [address] 05/08/2020 12:00:00 AM EST eCW1 [facility] [place] [address] [address] 05/03/2020 12:00:00 AM EST eCW1 ([facility] [place] [address] [address] 05/03/2020 12:00:00 AM EST eCW1 ([facility]) [place] [address] [address] 05/02/2020 12:00:00 AM EST eCW1 ([facility]) [place] [address] [address] 04/28/2020 12:00:00 AM EST eCW1 ([facility]) Outpatient Attender: Silver Carrillo/Pancho/Ivan/Luba yip 04/26/2020 09:30:00 AM EST MEDENT ([facility]) [place] [address] [address] 04/24/2020 12:00:00 AM EST eCW1 ([facility]) [place] [address] [address] 04/24/2020 12:00:00 AM EST eCW1 ([facility]) [place] [address] [address] 04/21/2020 12:00:00 AM EST eCW1 ([facility]) [place] [address] [address] 04/21/2020 12:00:00 AM EST eCW1 ([facility]) [place] [address] [address] 04/17/2020 12:00:00 AM EST eCW1 ([facility]) [place] [address] [address] 04/12/2020 12:00:00 AM EST eCW1 ([facility]) [place] [address] [facility] [place] [address] 04/12/2020 12:00:00 AM EST eCW1 ([facility]) [place] [address] [address] 04/10/2020 12:00:00 AM EST eCW1 ([facility]) [place]patient [address] [facility] [place] [address] 04/03/2020 12:00:00 AM EST eCW1 ([facility]) [place] [address] [address] 03/31/2020 12:00:00 AM EST eCW1 [facility]) Outpatient Attender: VANNESSA Wrayillus 03/30/2020 01:30:00 PM EST MEDENT ([facility]) [place] [address] [address] 03/28/2020 12:00:00 AM EST eCW1 ([facility]) Unknown [address] [facility] [place] [address] 03/28/2020 12:00:00 AM EST eCW1 ([facility]) Unknown [address] [facility] [place] [address] 03/24/2020 12:00:00 AM EST eCW1 ([facility]) [place] [address] [address] 03/24/2020 12:00:00 AM EST eCW1 ([facility]) [place] [address] [address] 03/24/2020 12:00:00 AM EST eCW1 ([facility]) Outpatient<td ID="encounterTypeDescripti onID0">NEW PATIENT WITH REFERRAL</td><td>Mar Sarah DO</td><td>Jhony Amado MD [facility]</td><td>03/21/2020</td><td>8:13AM</td><td>10:17AM</td><td><content ID="encounterDiagnosisID0-0">Dry Eye Syndrome</content>, <content ID="encounterDiagnosisID0-1">Cataract Senile Nuclear</content>, <content ID="encounterDiagnosisID0-2">Vitreous Disorders Degeneration</content>, <content ID="encounterDiagnosisID0-3">Taking Medication For Diabetes Long-term Use of Insulin</content>, <content ID="encounterDiagnosisID0-4">Diabetes Mellitus Type 2 Without Complication</content>, <content ID="encounterDiagnosisID0-5">Corneal Dystrophy Endothelial</content>, <content ID="encounterDiagnosisID0-6">Transient Visual Loss</content></td> Attender: MAR Reagan MD [facility] 03/21/2020 08:13:00 AM EST - 03/21/2020 10:17:00 AM ES T Transient Visual LossCorneal Dystrophy EndothelialDiabetes Mellitus Type 2 Without ComplicationTaking Medication For Diabetes Long-term Use of InsulinVitreous Disorders DegenerationCataract Senile NuclearDry Eye Syndrome [place] (Jhony Lowery MD [facility]) Transient Visual Loss Corneal Dystrophy Endothelial Diabetes Mellitus Type 2 Without Complic ation Taking Medication For Diabetes Long-term Use of Insulin Vitreous Disorders Degeneration Cataract Senile Nuclear Dry Eye Syndrome [place] [address] [address] 03/21/2020 12:00:00 AM EST eCW1 ([facility]) [place] [address] [address] 03/20/2020 12:00:00 AM EST eCW1 ([facility]) Unknown [address] [facility] [address] 03/20/2020 12:00:00 AM EST eCW1 ([facility]) Unknown [address] [facility] [facility] [place] [address] 03/20/2020 12:00:00 AM EST eCW1 ([facility]) Outpatient Attender: CRISTOPHER REESE [facility] Office 06/2019 08:00:00 AM EST MEDENT ([facility] [place] [address] [facility] [place] [address] 03/16/2020 12:00:00 AM EST eCW1 ([facility]) Outpatient Attender: Silver Carrillo/Pancho/Ivan/Luba dl 03/15/2020 12:30:00 PM EST MEDENT ([facility]) Unknown [address] [facility] [address] 03/02/2020 12:00:00 AM EST eCW1 ([facility]) Unknown [address] [facility] [address] 03/01/2020 12:00:00 AM EST eCW1 ([facility]) Outpatient [address] [facility] [address] 03/01/2020 12:00:00 AM EST eCW1 ([facility]) Unknown [address] [facility] [address] 02/21/2020 12:00:00 AM EST eCW1 ([facility]) Outpatient [address] [facility] [place] [address] 02/18/2020 12:00:00 AM EST eCW1 ([facility]) Outpatient [address] [facility] [address] 02/11/2020 12:00:00 AM EDT eCW1 ([facility]) Unknown [address] [facility] [address] 02/07/2020 12:00:00 AM EDT eCW1 ([facility]) [place] [address] [address] 02/04/2020 12:00:00 AM EDT eCW1 ([facility]) [place] [address] [address] 02/03/2020 12:00:00 AM EDT eCW1 ([facility]) [place] [address] [address] 01/26/2020 12:00:00 AM EDT eCW1 ([facility]) [place] [address] [address] 01/24/2020 12:00:00 AM EDT eCW1 ([facility]) [place] [address] [address] 01/19/2020 12:00:00 AM EDT eCW1 ([facility]) [place] [address] [address] 01/17/2020 12:00:00 AM EDT eCW1 ([facility]) [place] [address] [address] 01/14/2020 12:00:00 AM EDT eCW1 ([facility]) [place] [address] [address] 01/13/2020 12:00:00 AM EDT eCW1 ([facility]) [place] [address] [address] 01/12/2020 12:00:00 AM EDT eCW1 ([facility]) Outpatient Attender: Toribio Carrillo/Pancho/Ivan/Reindl 01/10/2020 02:30:00 PM EDT MEDENT ([facility]) Office Visit Attender: Silver Carrillo/Pancho/Ivan/Rein dl 12/29/2019 09:50:00 AM EDT MEDENT ([facility]) Office Visit Attender: Toribio Yilucia Carrillo/[place]/Ivan/Reindl 12/27/2019 03:00:00 PM EDT MEDENT ([facility]) [facility] [place] [address] [address] 12/24/2019 12:00:00 AM EDT eCW1 ([facility]) Outpatient Attender: CRISTOPHER REESE [facility] Office 04/2019 09:00:00 AM EDT MEDENT ([facility] Outpatient Attender: Silver Carrillo/Pancho/Ivan/Rein dl 11/10/2019 10:40:00 AM EDT MEDENT ([facility] [place] [address] [address] 11/02/2019 12:00:00 AM EDT eCW1 ([facility]) [place] [address] [address] 11/02/2019 12:00:00 AM EDT eCW1 ([facility]) [place] [address] [address] 11/01/2019 12:00:00 AM EDT eCW1 ([facility]) [place] [address] [address] 11/01/2019 12:00:00 AM EDT eCW1 ([facility]) [place] [address] [address] 10/29/2019 12:00:00 AM EDT eCW1 ([facility]) [place] [address] [address] 10/25/2019 12:00:00 AM EDT eCW1 ([facility]) [place] [address] [address] 10/25/2019 12:00:00 AM EDT eCW1 ([facility]) [place] [address] [address] 10/21/2019 12:00:00 AM EDT eCW1 ([facility]) [place] [address] [address] 10/20/2019 12:00:00 AM EDT [facility]CW1 [facility] Outpatient Attender: CRISTOPHER REESE [facility] Office 09/13 10:30:00 AM EDT MEDENT ([facility] Outpatient Referrer: Tutu Sanchez MD 10/08/2019 05:33:00 AM EDT [facility] [place] [address] [address] 09/30/2019 12:00:00 AM EDT eCW1 ([facility]) [place] [address] [facility] [facility] [address] 09/30/2019 12:00:00 AM EDT eCW1 ([facility]) [place] [address] [address] 09/29/2019 12:00:00 AM EDT eCW1 ([facility]) [place] [address] [address] 09/28/2019 12:00:00 AM EDT eCW1 ([facility]) [place] [address] [address] 09/28/2019 12:00:00 AM EDT eCW1 ([facility]) [place] [address] [address] 09/27/2019 12:00:00 AM EDT eCW1 ([facility]) [place] [address] [place] [address] 09/22/2019 12:00:00 AM EDT eCW1 ([facility]) [facility] [address] [place] [address] 09/22/2019 12:00:00 AM EDT eCW1 ([facility]) [place] [address] [address] 09/20/2019 12:00:00 AM EDT eCW1 ([facility]) [place] [address] [address] 09/20/2019 12:00:00 AM EDT eCW1 ([facility]) [place] [address] [address] 09/17/2019 12:00:00 AM EDT eCW1 ([facility]) [place] [address] [address] 09/17/2019 12:00:00 AM EDT eCW1 ([facility]) [facility] [address] [address] 09/17/2019 12:00:00 AM EDT eCW1 ([facility]) [facility] [address] [address] 09/13/2019 12:00:00 AM EDT eCW1 ([facility]) [place] [address] [address] 09/10/2019 12:00:00 AM EDT eCW1 ([facility]) [facility] [address] [address] 09/09/2019 12:00:00 AM EDT eCW1 ([facility]) [facility] [address] [address] 09/09/2019 12:00:00 AM EDT eCW1 ([facility]) [facility] [address] [address] 09/07/2019 12:00:00 AM EDT eCW1 ([facility]) [facility] [address] [place] [address] 09/07/2019 12:00:00 AM EDT eCW1 ([facility]) [place] [address] [address] 09/03/2019 12:00:00 AM EDT eCW1 ([facility] [address] [address] 09/01/2019 12:00:00 AM EDT eCW1 ([facility]) Outpatient Attender: CRISTOPHER REESE [facility] Office 08/12 10:30:00 AM EDT [facility] ([facility] [address] [place] [address] 08/27/2019 12:00:00 AM EDT eCW1 ([facility]) [address] [place] [address] 08/26/2019 12:00:00 AM EDT eCW1 ([facility]) [address] [address] 08/26/2019 12:00:00 AM EDT eCW1 ([facility]) Outpatient Referrer: Tutu Sanchez MD 08/24/2019 06:01:00 AM EDT [facility] [address] [address] 08/24/2019 12:00:00 AM EDT eCW1 ([facility]) [address] [address] 08/20/2019 12:00:00 AM EDT eCW1 ([facility]) [address] [place] [address] 08/19/2019 12:00:00 AM EDT eCW1 ([facility]) [address] [address] 08/18/2019 12:00:00 AM EDT eCW1 ([facility]) [address] [address] 08/18/2019 12:00:00 AM EDT eCW1 ([facility]) [facility] [address] [facility] [address] 08/17/2019 12:00:00 AM EDT eCW1 ([facility]) TeleMedicine Phone E/M by Phys 11-20 Min [address] [place] [address] 08/13/2019 12:00:00 AM EDT eCW1 ([facility]) Outpatient [address] [facility] [address] 08/12/2019 12:00:00 AM EDT eCW1 ([facility]) [facility] [address] [facility] [address] 08/12/2019 12:00:00 AM EDT eCW1 ([facility]) [facility] [address] [facility] [address] 08/11/2019 12:00:00 AM EDT eCW1 ([facility]) [facility] [address] [facility] [address] 08/10/2019 12:00:00 AM EDT eCW1 ([facility]) [facility] [address] [facility] [address] 08/09/2019 12:00:00 AM EDT eCW1 ([facility]) [facility] [address] [facility] [address] 08/09/2019 12:00:00 AM EDT eCW1 ([facility]) [facility] [address] [facility] [address] 08/09/2019 12:00:00 AM EDT eCW1 ([facility]) Outpatient [address] [facility] [address] 08/06/2019 12:00:00 AM EDT eCW1 ([facility]) [address] [address] 08/04/2019 12:00:00 AM EDT eCW1 ([facility]) [facility] [address] [place] [address] [place] [address] 08/02/2019 12:00:00 AM EDT eCW1 ([facility]) [facility] [address] [place] [address] Y [address] 08/02/2019 12:00:00 AM EDT eCW1 ([facility]) Outpatient [address] [place] [address] [place] [address] 07/30/2019 12:00:00 AM EDT eCW1 ([facility]) [address] [place] [address] 07/30/2019 12:00:00 AM EDT eCW1 ([facility]) Outpatient Attender: CRISTOPHER REESE [facility] Office 07/13 10:30:00 AM EDT [facility] ([facility] [address] [place] [address] 07/29/2019 12:00:00 AM EDT eCW1 ([facility]) [facility] [address] [place] [address] 07/29/2019 12:00:00 AM EDT eCW1 ([facility]) [address] [place] [address] 07/28/2019 12:00:00 AM EDT eCW1 ([facility]) [facility] [address] [place] [address] 07/28/2019 12:00:00 AM EDT eCW1 ([facility]) Unknown [address] [place] [address] [place] [address] 07/27/2019 12:00:00 AM EDT eCW1 ([facility]) [address] [place] [address] 07/27/2019 12:00:00 AM EDT eCW1 ([facility]) [facility] [address] [facility] [address] 07/27/2019 12:00:00 AM EDT eCW1 ([facility]) [facility] [address] [facility] [address] 07/26/2019 12:00:00 AM EDT eCW1 ([facility]) Outpatient Referrer: Tutu Sanchez MD 07/23/2019 12:47:00 PM EDT [facility] Outpatient [address] [facility] [address] 07/23/2019 12:00:00 AM EDT [facility]1 [facility] [address] [facility] [address] 07/22/2019 12:00:00 AM EDT eCW1 ([facility]) [facility] [address] [place] [address], [place] [address] 07/21/2019 12:00:00 AM EDT eCW1 ([facility]) [place] [address] [facility] [address] 07/16/2019 12:00:00 AM EDT eCW1 ([facility]) [facility] [address] [facility] [address] 07/16/2019 12:00:00 AM EDT eCW1 ([facility]) [facility] [address] [place] [address], [place] [address] 07/16/2019 12:00:00 AM EDT eCW1 ([facility]) [facility] [address] [facility] [address] 07/13/2019 12:00:00 AM EDT eCW1 ([facility]) [place] [address] [facility] [address] 07/13/2019 12:00:00 AM EDT eCW1 ([facility]) [facility] [address] [place] [address], [place] [address] 07/12/2019 12:00:00 AM EDT eCW1 ([facility]) [facility] [address] [place] [address], [place] [address] 07/12/2019 12:00:00 AM EDT eCW1 ([facility]) [facility] [address] [place] [address], [place] [address] 07/12/2019 12:00:00 AM EDT eCW1 ([facility]) [facility] [address] [place] [address], [place] [address] 07/08/2019 12:00:00 AM EDT eCW1 ([facility]) [facility] [address] [place] [address], [place] [address] 07/07/2019 12:00:00 AM EDT eCW1 ([facility]) [facility] [address] [place] [address], [place] [address] 07/06/2019 12:00:00 AM EDT eCW1 ([facility]) [facility] [address] [place] [address], [place] [address] 07/05/2019 12:00:00 AM EDT eCW1 ([facility]) [facility] [address] [place] [address], [place] [address] 07/05/2019 12:00:00 AM EDT eCW1 ([facility]) [facility] [address] [place] [address], [place] [address] 07/05/2019 12:00:00 AM EDT eCW1 ([facility]) [facility] [address] [place] [address], [place] [address] 07/05/2019 12:00:00 AM EDT eCW1 ([facility]) [address] [address] 07/03/2019 12:00:00 AM EDT eCW1 ([facility]) [facility] [address] [place] [address], [place] [address] 07/02/2019 12:00:00 AM EDT eCW1 ([facility]) [facility] [address] [place] [address], [place] [address] 07/01/2019 12:00:00 AM EDT eCW1 ([facility]) [facility] [address] [place] [address] 06/29/2019 12:00:00 AM EDT eCW1 ([facility]) [address] [address] 06/29/2019 12:00:00 AM EDT eCW1 ([facility]) Outpatient Attender: CRISTOPHER REESE [facility] Office 06/12 02:30:00 PM EDT [facility] ([facility] [address] [address] 06/25/2019 12:00:00 AM EDT eCW1 ([facility]) [address] [address] 06/23/2019 12:00:00 AM EDT eCW1 ([facility]) [address] [address] 06/23/2019 12:00:00 AM EDT eCW1 ([facility]) [address] [address] 06/22/2019 12:00:00 AM EDT eCW1 ([facility]) Outpatient [address] [place] [address], [place] [address] 06/21/2019 12:00:00 AM EDT eCW1 ([facility]) [address] [address] 06/18/2019 12:00:00 AM EST eCW1 ([facility]) [facility] [address] [place] [address], [place] [address] 06/17/2019 12:00:00 AM EST eCW1 ([facility]) [facility] [address] [place] [address], [place] [address] 06/17/2019 12:00:00 AM EST eCW1 ([facility]) [facility] [address] [place] [address], [place] [address] 06/15/2019 12:00:00 AM EST eCW1 ([facility]) [address] [address] 06/15/2019 12:00:00 AM EST eCW1 ([facility]) [address] [address] 06/14/2019 12:00:00 AM EST eCW1 ([facility]) [address] [address] 06/14/2019 12:00:00 AM EST eCW1 ([facility]) [address] [address] 06/11/2019 12:00:00 AM EST eCW1 ([facility]) [address] [address] 06/11/2019 12:00:00 AM EST eCW1 ([facility]) [address] [address] 06/11/2019 12:00:00 AM EST eCW1 ([facility]) [address] [address] 06/08/2019 12:00:00 AM EST eCW1 ([facility]) [address] [address] 06/07/2019 12:00:00 AM EST eCW1 ([facility]) [address] [address] 06/06/2019 12:00:00 AM EST eCW1 ([facility]) [address] [address] 06/04/2019 12:00:00 AM EST eCW1 ([facility]) [address] [address] 05/31/2019 12:00:00 AM EST eCW1 ([facility]) Outpatient Attender: CRISTOPHER REESE [facility] Office 05/15 01:30:00 PM EST [facility] ([facility] [address] [address] 05/19/2019 12:00:00 AM EST eCW1 ([facility]) [address] [address] 05/18/2019 12:00:00 AM EST eCW1 ([facility]) [address] [address] 05/17/2019 12:00:00 AM EST eCW1 ([facility]) [address] [address] 05/14/2019 12:00:00 AM EST eCW1 ([facility]) [address] [address] 05/13/2019 12:00:00 AM EST eCW1 ([facility]) [address] [address] 05/12/2019 12:00:00 AM EST eCW1 ([facility]) [address] [address] 05/08/2019 12:00:00 AM EST eCW1 ([facility]) [facility] [address] [facility] [address] 05/05/2019 12:00:00 AM EST eCW1 ([facility]) [facility] [address] [facility] [address] 05/01/2019 12:00:00 AM EST eCW1 ([facility]) [facility] [address] [place] [address], [place] [address] 04/29/2019 12:00:00 AM EST eCW1 ([facility]) [facility] [address] [place] [address], [place] [address] 04/26/2019 12:00:00 AM EST eCW1 ([facility]) [facility] [address] [place] [address], [place] [address] 04/22/2019 12:00:00 AM EST eCW1 ([facility]) [facility] [address] [place] [address], [place] [address] 04/20/2019 12:00:00 AM EST eCW1 ([facility]) [facility] [address] [place] [address], [place] [address] 04/19/2019 12:00:00 AM EST eCW1 ([facility]) [facility] [address] [place] [address], [place] [address] 04/15/2019 12:00:00 AM EST eCW1 ([facility]) [facility] [address] [place] [address], [place] [address] 04/15/2019 12:00:00 AM EST eCW1 ([facility]) [address] [address] 04/13/2019 12:00:00 AM EST eCW1 ([facility]) [address] [address] 04/09/2019 12:00:00 AM EST eCW1 ([facility]) [facility] [address] [facility] [address] 04/08/2019 12:00:00 AM EST eCW1 ([facility]) [facility] [address] [facility] [address] 04/02/2019 12:00:00 AM EST eCW1 ([facility]) [facility] [address] [facility] [address] 04/01/2019 12:00:00 AM EST eCW1 ([facility]) Immunizations Vaccine Date Status Description Data Source(s) Toradol 60mg/2mL (Ketorolac) 07/30/2019 08:29:00 AM EDT completed eCW1 ([facility]) Toradol 60mg/2mL (Ketorolac) 07/30/2019 08:29:00 AM EDT completed eCW1 ([facility]) Toradol 60mg/2mL (Ketorolac) 07/30/2019 08:29:00 AM EDT completed eCW1 ([facility]) Toradol 60mg/2mL (Ketorolac) 07/30/2019 08:29:00 AM EDT completed eCW1 ([facility]) Toradol 60mg/2mL (Ketorolac) 07/30/2019 08:29:00 AM EDT completed eCW1 ([facility]) Toradol 60mg/2mL (Ketorolac) 07/30/2019 08:29:00 AM EDT completed eCW1 ([facility]) Toradol 60mg/2mL (Ketorolac) 07/30/2019 08:29:00 AM EDT completed eCW1 ([facility]) Toradol 60mg/2mL (Ketorolac) 07/30/2019 08:29:00 AM EDT completed eCW1 ([facility]) Toradol 60mg/2mL (Ketorolac) 07/30/2019 08:29:00 AM EDT completed eCW1 ([facility]) Toradol 60mg/2mL (Ketorolac) 07/30/2019 08:29:00 AM EDT completed eCW1 ([facility]) Toradol 60mg/2mL (Ketorolac) 07/30/2019 08:29:00 AM EDT completed eCW1 ([facility]) Toradol 60mg/2mL (Ketorolac) 07/30/2019 08:29:00 AM EDT completed eCW1 ([facility]) Toradol 60mg/2mL (Ketorolac) 07/30/2019 08:29:00 AM EDT completed eCW1 ([facility]) Toradol 60mg/2mL (Ketorolac) 07/30/2019 08:29:00 AM EDT completed eCW1 ([facility]) Toradol 60mg/2mL (Ketorolac) 07/30/2019 08:29:00 AM EDT completed eCW1 ([facility]) Toradol 60mg/2mL (Ketorolac) 07/30/2019 08:29:00 AM EDT completed eCW1 ([facility]) Toradol 60mg/2mL (Ketorolac) 07/30/2019 08:29:00 AM EDT completed eCW1 ([facility]) Toradol 60mg/2mL (Ketorolac) 07/30/2019 08:29:00 AM EDT completed eCW1 ([facility]) Toradol 60mg/2mL (Ketorolac) 07/30/2019 08:29:00 AM EDT completed eCW1 ([facility]) Toradol 60mg/2mL (Ketorolac) 07/30/2019 08:29:00 AM EDT completed eCW1 ([facility]) Toradol 60mg/2mL (Ketorolac) 07/30/2019 08:29:00 AM EDT completed eCW1 ([facility]) Toradol 60mg/2mL (Ketorolac) 07/30/2019 08:29:00 AM EDT completed eCW1 ([facility]) Toradol 60mg/2mL (Ketorolac) 07/30/2019 08:29:00 AM EDT completed eCW1 ([facility]) Toradol 60mg/2mL (Ketorolac) 07/30/2019 08:29:00 AM EDT completed eCW1 ([facility]) Toradol 60mg/2mL (Ketorolac) 07/30/2019 08:29:00 AM EDT completed eCW1 ([facility]) Toradol 60mg/2mL (Ketorolac) 07/30/2019 08:29:00 AM EDT completed eCW1 ([facility]) Toradol 60mg/2mL (Ketorolac) 07/30/2019 08:29:00 AM EDT completed eCW1 ([facility]) Toradol 60mg/2mL (Ketorolac) 07/30/2019 08:29:00 AM EDT completed eCW1 ([facility]) Toradol 60mg/2mL (Ketorolac) 07/30/2019 08:29:00 AM EDT completed eCW1 ([facility]) Toradol 60mg/2mL (Ketorolac) 07/30/2019 08:29:00 AM EDT completed eCW1 ([facility]) Toradol 60mg/2mL (Ketorolac) 07/30/2019 08:29:00 AM EDT completed eCW1 ([facility]) Toradol 60mg/2mL (Ketorolac) 07/30/2019 08:29:00 AM EDT completed eCW1 ([facility]) Toradol 60mg/2mL (Ketorolac) 07/30/2019 08:29:00 AM EDT completed eCW1 ([facility]) Toradol 60mg/2mL (Ketorolac) 07/30/2019 08:29:00 AM EDT completed eCW1 ([facility]) Toradol 60mg/2mL (Ketorolac) 07/30/2019 08:29:00 AM EDT completed eCW1 ([facility]) Toradol 60mg/2mL (Ketorolac) 07/30/2019 08:29:00 AM EDT completed eCW1 ([facility]) Toradol 60mg/2mL (Ketorolac) 07/30/2019 08:29:00 AM EDT completed eCW1 ([facility]) Toradol 60mg/2mL (Ketorolac) 07/30/2019 08:29:00 AM EDT completed eCW1 ([facility]) Toradol 60mg/2mL (Ketorolac) 07/30/2019 08:29:00 AM EDT completed eCW1 ([facility]) Toradol 60mg/2mL (Ketorolac) 07/30/2019 08:29:00 AM EDT completed eCW1 ([facility]) Toradol 60mg/2mL (Ketorolac) 07/30/2019 08:29:00 AM EDT completed eCW1 ([facility]) Toradol 60mg/2mL (Ketorolac) 07/30/2019 08:29:00 AM EDT completed eCW1 ([facility]) Toradol 60mg/2mL (Ketorolac) 07/30/2019 08:29:00 AM EDT completed eCW1 ([facility]) Toradol 60mg/2mL (Ketorolac) 07/30/2019 08:29:00 AM EDT completed eCW1 ([facility]) Toradol 60mg/2mL (Ketorolac) 07/30/2019 08:29:00 AM EDT completed eCW1 ([facility]) Toradol 60mg/2mL (Ketorolac) 07/30/2019 08:29:00 AM EDT completed eCW1 ([facility]) Toradol 60mg/2mL (Ketorolac) 07/30/2019 08:29:00 AM EDT completed eCW1 ([facility]) Toradol 60mg/2mL (Ketorolac) 07/30/2019 08:29:00 AM EDT completed eCW1 ([facility]) Toradol 60mg/2mL (Ketorolac) 07/30/2019 08:29:00 AM EDT completed eCW1 ([facility]) Toradol 60mg/2mL (Ketorolac) 07/30/2019 08:29:00 AM EDT completed eCW1 ([facility]) Toradol 60mg/2mL (Ketorolac) 07/30/2019 08:29:00 AM EDT completed eCW1 ([facility]) Toradol 60mg/2mL (Ketorolac) 07/30/2019 08:29:00 AM EDT completed eCW1 ([facility]) Toradol 60mg/2mL (Ketorolac) 07/30/2019 08:29:00 AM EDT completed eCW1 ([facility]) Toradol 60mg/2mL (Ketorolac) 07/30/2019 08:29:00 AM EDT completed eCW1 ([facility]) Toradol 60mg/2mL (Ketorolac) 07/30/2019 08:29:00 AM EDT completed eCW1 ([facility]) Toradol 60mg/2mL (Ketorolac) 07/30/2019 08:29:00 AM EDT completed eCW1 ([facility]) Toradol 60mg/2mL (Ketorolac) 07/30/2019 08:29:00 AM EDT completed eCW1 ([facility]) Toradol 60mg/2mL (Ketorolac) 07/30/2019 08:29:00 AM EDT completed eCW1 ([facility]) Toradol 60mg/2mL (Ketorolac) 07/30/2019 08:29:00 AM EDT completed eCW1 ([facility]) Toradol 60mg/2mL (Ketorolac) 07/30/2019 08:29:00 AM EDT completed eCW1 ([facility]) Toradol 60mg/2mL (Ketorolac) 07/30/2019 08:29:00 AM EDT completed eCW1 ([facility]) Toradol 60mg/2mL (Ketorolac) 07/30/2019 08:29:00 AM EDT completed eCW1 ([facility]) Toradol 60mg/2mL (Ketorolac) 07/30/2019 08:29:00 AM EDT completed eCW1 ([facility]) Toradol 60mg/2mL (Ketorolac) 07/30/2019 08:29:00 AM EDT completed eCW1 ([facility]) Toradol 60mg/2mL (Ketorolac) 07/30/2019 08:29:00 AM EDT completed eCW1 ([facility]) Toradol 60mg/2mL (Ketorolac) 07/30/2019 08:29:00 AM EDT completed eCW1 ([facility]) Toradol 60mg/2mL (Ketorolac) 07/30/2019 08:29:00 AM EDT completed eCW1 ([facility]) Toradol 60mg/2mL (Ketorolac) 07/30/2019 08:29:00 AM EDT completed eCW1 ([facility]) Toradol 60mg/2mL (Ketorolac) 07/30/2019 08:29:00 AM EDT completed eCW1 ([facility]) Toradol 60mg/2mL (Ketorolac) 07/30/2019 08:29:00 AM EDT completed eCW1 ([facility]) Medications Medication Brand Name Start Date Product [...] act nba Mupirocin Calcium 2 % eCW1 ([facility]) Mupirocin 20 MG/ML Topical Cream Mupirocin Calcium 2 % Mupir ocin Calcium 2 % 05/12/2020 12:00:00 AM EST 1.0 {application} act nba Mupirocin Calcium 2 % eCW1 ([facility]) 0.01 % (0.1 mg/gram) 05/12/2020 12:00:00 AM [...] Doxycycline Monohydrate 100 MG Oral Capsule Doxycycline [place] hydrate 100 MG 04/12/2020 12:00:00 AM EST 1.0 {capsule} suspend ed Doxycycline Monohydrate 100 MG eCW1 ([facility]) Doxycycline Monohydrate 100 MG Oral Capsule Doxycycline [place] hydrate 100 MG 04/12/2020 12:00:00 AM EST 1.0 {capsule} active Doxycycline Monohydrate 100 MG eCW1 ([facility]) Mometasone Furoate 50 MCG/ACT Mometasone Furoate 50 MCG/ACT 04/12/2020 12:00:00 AM EST 2.0 {sprays_in_each_nostril} active Mometasone Furoate 50 MCG/ACT eCW1 ([facility]) Doxycycline Monohydrate 100 MG Oral Capsule Doxycycline [place] hydrate 100 MG 04/12/2020 12:00:00 AM EST 1.0 {capsule} active Doxycycline Monohydrate 100 MG eCW1 ([facility]) Doxycycline Monohydrate 100 MG Oral Capsule Doxycycline [place] hydrate 100 MG 04/12/2020 12:00:00 AM EST 1.0 {capsule} active Doxycycline Monohydrate 100 MG eCW1 ([facility]) mesalamine 1000 MG Rectal Suppository Mesalamine 1000 MG Mes alamine 1000 MG 04/12/2020 12:00:00 AM EST 1.0 {suppository_at_bedtime} active Mesalamine 1000 MG eCW1 ([facility]) 10 gram/15 mL 04/12/2020 12:00:00 AM EST solution 1419 TAKE 15ML BY MOUTH THREE TIMES A DAY TAKE 15ML BY MOUTH THREE TIMES A DAY SOLD: 05/10/2020 [facility] Mometasone Furoate 50 MCG/ACT Mometasone Furoate 50 MCG/ACT 04/12/2020 12:00:00 AM EST 2.0 {sprays_in_each_nostril} active Mometasone Furoate 50 MCG/ACT eCW1 ([facility]) mesalamine 1000 MG Rectal Suppository Mesalamine 1000 MG Mes alamine 1000 MG 04/12/2020 12:00:00 AM EST 1.0 {suppository_at_bedtime} active Mesalamine 1000 MG eCW1 ([facility]) Mometasone Furoate 50 MCG/ACT Mometasone Furoate 50 MCG/ACT 04/12/2020 12:00:00 AM EST 2.0 {sprays_in_each_nostril} active Mometasone Furoate 50 MCG/ACT eCW1 ([facility]) Mometasone Furoate 50 MCG/ACT Mometasone Furoate 50 MCG/ACT 04/12/2020 12:00:00 AM EST 2.0 {sprays_in_each_nostril} active Mometasone Furoate 50 MCG/ACT eCW1 ([facility]) mesalamine 1000 MG Rectal Suppository Mesalamine 1000 MG Mes alamine 1000 MG 04/12/2020 12:00:00 AM EST 1.0 {suppository_at_bedtime} active Mesalamine 1000 MG eCW1 ([facility]) mesalamine 1000 MG Rectal Suppository Mesalamine 1000 MG Mes alamine 1000 MG 04/12/2020 12:00:00 AM EST 1.0 {suppository_at_bedtime} active Mesalamine 1000 MG eCW1 ([facility]) mesalamine 1000 MG Rectal Suppository Mesalamine 1000 MG Mes alamine 1000 MG 04/12/2020 12:00:00 AM EST 1.0 {suppository_at_bedtime} active Mesalamine 1000 MG eCW1 ([facility]) Mometasone Furoate 50 MCG/ACT Mometasone Furoate 50 MCG/ACT 04/12/2020 12:00:00 AM EST 2.0 {sprays_in_each_nostril} active Mometasone Furoate 50 MCG/ACT eCW1 ([facility]) mesalamine 1000 MG Rectal Suppository Mesalamine 1000 MG Mes alamine 1000 MG 04/12/2020 12:00:00 AM EST 1.0 {suppository_at_bedtime} active Mesalamine 1000 MG eCW1 ([facility]) Doxycycline Monohydrate 100 MG Oral Capsule Doxycycline [place] hydrate 100 MG 04/12/2020 12:00:00 AM EST 1.0 {capsule} active Doxycycline Monohydrate 100 MG eCW1 ([facility]) 12 % 04/12/2020 12:00:00 AM EST cream 140 APPLY 1 APPLICATION TO FEET TWICE A DAY APPLY 1 APPLICATION TO FEET TWICE A DAY SOLD: 05/10/2020 [facility] mesalamine 1000 MG Rectal Suppository Mesalamine 1000 MG Mes alamine 1000 MG 04/12/2020 12:00:00 AM EST 1.0 {suppository_at_bedtime} active Mesalamine 1000 MG eCW1 ([facility]) Mometasone Furoate 50 MCG/ACT Mometasone Furoate 50 MCG/ACT 04/12/2020 12:00:00 AM EST 2.0 {sprays_in_each_nostril} active Mometasone Furoate 50 MCG/ACT eCW1 ([facility]) mesalamine 1000 MG Rectal Suppository Mesalamine 1000 MG Mes alamine 1000 MG 04/12/2020 12:00:00 AM EST 1.0 {suppository_at_bedtime} active Mesalamine 1000 MG eCW1 ([facility]) Doxycycline Monohydrate 100 MG Oral Capsule Doxycycline [place] hydrate 100 MG 04/12/2020 12:00:00 AM EST 1.0 {capsule} active Doxycycline Monohydrate 100 MG eCW1 ([facility]) mesalamine 1000 MG Rectal Suppository Mesalamine 1000 MG Mes alamine 1000 MG 04/12/2020 12:00:00 AM EST 1.0 {suppository_at_bedtime} active Mesalamine 1000 MG eCW1 ([facility]) 1,000 mg 04/12/2020 12:00:00 AM EST suppository 30 INSERT ONE SUPPOSITORY RECTALLY AT BEDTIME INSERT ONE SUPPOSITORY RECTALLY AT BEDTIME SOLD: 05/10/2020 [facility] Doxycycline Monohydrate 100 MG Oral Capsule Doxycycline [place] hydrate 100 MG 04/12/2020 12:00:00 AM EST 1.0 {capsule} active Doxycycline Monohydrate 100 MG eCW1 ([facility]) 12 % 04/12/2020 12:00:00 AM EST cream 140 APPLY 1 APPLICATION TO FEET TWICE A DAY APPLY 1 APPLICATION TO FEET TWICE A DAY SOLD: 04/12/2020 [facility] 10 gram/15 mL 04/12/2020 12:00:00 AM EST solution 1419 TAKE 15ML BY MOUTH THREE TIMES A DAY TAKE 15ML BY MOUTH THREE TIMES A DAY SOLD: 04/12/2020 [facility] Doxycycline Monohydrate 100 MG Oral Capsule Doxycycline [place] hydrate 100 MG 04/12/2020 12:00:00 AM EST 1.0 {capsule} active Doxycycline Monohydrate 100 MG eCW1 ([facility]) Mometasone Furoate 50 MCG/ACT Mometasone Furoate 50 MCG/ACT 04/12/2020 12:00:00 AM EST 2.0 {sprays_in_each_nostril} active Mometasone Furoate 50 MCG/ACT eCW1 ([facility]) mesalamine 1000 MG Rectal Suppository Mesalamine 1000 MG Mes alamine 1000 MG 04/12/2020 12:00:00 AM EST 1.0 {suppository_at_bedtime} active Mesalamine 1000 MG eCW1 ([facility]) mesalamine 1000 MG Rectal Suppository Mesalamine 1000 MG Mes alamine 1000 MG 04/12/2020 12:00:00 AM EST 1.0 {suppository_at_bedtime} active Mesalamine 1000 MG eCW1 ([facility]) Doxycycline Monohydrate 100 MG Oral Capsule Doxycycline [place] hydrate 100 MG 04/12/2020 12:00:00 AM EST 1.0 {capsule} active Doxycycline Monohydrate 100 MG eCW1 ([facility]) mesalamine 1000 MG Rectal Suppository Mesalamine 1000 MG Mes alamine 1000 MG 04/12/2020 12:00:00 AM EST 1.0 {suppository_at_bedtime} active Mesalamine 1000 MG eCW1 ([facility]) mesalamine 1000 MG Rectal Suppository Mesalamine 1000 MG Mes alamine 1000 MG 04/12/2020 12:00:00 AM EST 1.0 {suppository_at_bedtime} active Mesalamine 1000 MG eCW1 ([facility]) Mometasone Furoate 50 MCG/ACT Mometasone Furoate 50 MCG/ACT 04/12/2020 12:00:00 AM EST 2.0 {sprays_in_each_nostril} active Mometasone Furoate 50 MCG/ACT eCW1 ([facility]) mesalamine 1000 MG Rectal Suppository Mesalamine 1000 MG Mes alamine 1000 MG 04/12/2020 12:00:00 AM EST 1.0 {suppository_at_bedtime} active Mesalamine 1000 MG eCW1 ([facility]) Mometasone Furoate 50 MCG/ACT Mometasone Furoate 50 MCG/ACT 04/12/2020 12:00:00 AM EST 2.0 {sprays_in_each_nostril} active Mometasone Furoate 50 MCG/ACT eCW1 ([facility]) Mometasone Furoate 50 MCG/ACT Mometasone Furoate 50 MCG/ACT 04/12/2020 12:00:00 AM EST 2.0 {sprays_in_each_nostril} active Mometasone Furoate 50 MCG/ACT eCW1 ([facility]) Doxycycline Monohydrate 100 MG Oral Capsule Doxycycline [place] hydrate 100 MG 04/12/2020 12:00:00 AM EST 1.0 {capsule} active Doxycycline Monohydrate 100 MG eCW1 ([facility]) mesalamine 1000 MG Rectal Suppository Mesalamine 1000 MG Mes alamine 1000 MG 04/12/2020 12:00:00 AM EST 1.0 {suppository_at_bedtime} active Mesalamine 1000 MG eCW1 ([facility]) Doxycycline Monohydrate 100 MG Oral Capsule Doxycycline [place] hydrate 100 MG 04/12/2020 12:00:00 AM EST 1.0 {capsule} active Doxycycline Monohydrate 100 MG eCW1 ([facility]) Mometasone Furoate 50 MCG/ACT Mometasone Furoate 50 MCG/ACT 04/12/2020 12:00:00 AM EST 2.0 {sprays_in_each_nostril} active Mometasone Furoate 50 MCG/ACT eCW1 ([facility]) Doxycycline Monohydrate 100 MG Oral Capsule Doxycycline [place] hydrate 100 MG 04/12/2020 12:00:00 AM EST 1.0 {capsule} active Doxycycline Monohydrate 100 MG eCW1 ([facility]) 100 mg 04/12/2020 12:00:00 AM EST capsule 20 TAKE ONE CAPSULE BY MOUTH TWICE A DAY FOR 10 DAYS TAKE ONE CAPSULE BY MOUTH TWICE A DAY FOR 10 DAYS SOLD : 04/12/2020 [facility] Doxycycline Monohydrate 100 MG Oral Capsule Doxycycline [place] hydrate 100 MG 04/12/2020 12:00:00 AM EST 1.0 {capsule} active Doxycycline Monohydrate 100 MG eCW1 ([facility]) Mometasone Furoate 50 MCG/ACT Mometasone Furoate 50 MCG/ACT 04/12/2020 12:00:00 AM EST 2.0 {sprays_in_each_nostril} active Mometasone Furoate 50 MCG/ACT eCW1 ([facility]) Mometasone Furoate 50 MCG/ACT Mometasone Furoate 50 MCG/ACT 04/12/2020 12:00:00 AM EST 2.0 {sprays_in_each_nostril} active Mometasone Furoate 50 MCG/ACT eCW1 ([facility]) Mometasone Furoate 50 MCG/ACT Mometasone Furoate 50 MCG/ACT 04/12/2020 12:00:00 AM EST 2.0 {sprays_in_each_nostril} active Mometasone Furoate 50 MCG/ACT eCW1 ([facility]) Mometasone Furoate 50 MCG/ACT Mometasone Furoate 50 MCG/ACT 04/12/2020 12:00:00 AM EST 2.0 {sprays_in_each_nostril} active Mometasone Furoate 50 MCG/ACT eCW1 ([facility]) Mometasone Furoate 50 MCG/ACT Mometasone Furoate 50 MCG/ACT 04/12/2020 12:00:00 AM EST 2.0 {sprays_in_each_nostril} active Mometasone Furoate 50 MCG/ACT eCW1 ([facility]) mesalamine 1000 MG Rectal Suppository Mesalamine 1000 MG Mes alamine 1000 MG 04/12/2020 12:00:00 AM EST 1.0 {suppository_at_bedtime} active Mesalamine 1000 MG eCW1 ([facility]) mesalamine 1000 MG Rectal Suppository Mesalamine 1000 MG Mes alamine 1000 MG 04/12/2020 12:00:00 AM EST 1.0 {suppository_at_bedtime} active Mesalamine 1000 MG eCW1 ([facility]) mesalamine 1000 MG Rectal Suppository Mesalamine 1000 MG Mes alamine 1000 MG 04/12/2020 12:00:00 AM EST 1.0 {suppository_at_bedtime} active Mesalamine 1000 MG eCW1 ([facility]) Mometasone Furoate 50 MCG/ACT Mometasone Furoate 50 MCG/ACT 04/12/2020 12:00:00 AM EST 2.0 {sprays_in_each_nostril} active Mometasone Furoate 50 MCG/ACT eCW1 ([facility]) Doxycycline Monohydrate 100 MG Oral Capsule Doxycycline [place] hydrate 100 MG 04/12/2020 12:00:00 AM EST 1.0 {capsule} suspend ed Doxycycline Monohydrate 100 MG eCW1 ([facility]) Mometasone Furoate 50 MCG/ACT Mometasone Furoate 50 MCG/ACT 04/12/2020 12:00:00 AM EST 2.0 {sprays_in_each_nostril} active Mometasone Furoate 50 MCG/ACT eCW1 ([facility]) Mometasone Furoate 50 MCG/ACT Mometasone Furoate 50 MCG/ACT 04/12/2020 12:00:00 AM EST 2.0 {sprays_in_each_nostril} active Mometasone Furoate 50 MCG/ACT eCW1 ([facility]) mesalamine 1000 MG Rectal Suppository Mesalamine 1000 MG Mes alamine 1000 MG 04/12/2020 12:00:00 AM EST 1.0 {suppository_at_bedtime} active Mesalamine 1000 MG eCW1 ([facility]) Doxycycline Monohydrate 100 MG Oral Capsule Doxycycline [place] hydrate 100 MG 04/12/2020 12:00:00 AM EST 1.0 {capsule} active Doxycycline Monohydrate 100 MG eCW1 ([facility]) Doxycycline Monohydrate 100 MG Oral Capsule Doxycycline [place] hydrate 100 MG 04/12/2020 12:00:00 AM EST 1.0 {capsule} suspend ed Doxycycline Monohydrate 100 MG eCW1 ([facility]) Mometasone Furoate 50 MCG/ACT Mometasone Furoate 50 MCG/ACT 04/12/2020 12:00:00 AM EST 2.0 {sprays_in_each_nostril} active Mometasone Furoate 50 MCG/ACT eCW1 ([facility]) Doxycycline Monohydrate 100 MG Oral Capsule Doxycycline [place] hydrate 100 MG 04/12/2020 12:00:00 AM EST 1.0 {capsule} active Doxycycline Monohydrate 100 MG eCW1 ([facility]) Doxycycline Monohydrate 100 MG Oral Capsule Doxycycline [place] hydrate 100 MG 04/12/2020 12:00:00 AM EST 1.0 {capsule} active Doxycycline Monohydrate 100 MG eCW1 ([facility]) 1,000 mg 04/12/2020 12:00:00 AM EST suppository 30 INSERT ONE SUPPOSITORY RECTALLY AT BEDTIME INSERT ONE SUPPOSITORY RECTALLY AT BEDTIME SOLD: 04/12/2020 [facility] mesalamine 1000 MG Rectal Suppository Mesalamine 1000 MG Mes alamine 1000 MG 04/12/2020 12:00:00 AM EST 1.0 {suppository_at_bedtime} active Mesalamine 1000 MG eCW1 ([facility]) 4 mg/2 mL 04/10/2020 12:00:00 AM EST [...] TIMES A DAY UNTIL HEALED SOLD: 03/26/2020 [facility] 100,000 unit/gram 03/25/2020 12:00:00 AM EST [...] Oral Tablet JUAN DANIEL (Jhony Lowery MD [facility]) Nystatin 15 MG Oral Tablet Nystatin 15 MG Oral Tablet 2019 12:00:00 AM EST 1 active Nystatin JUAN DANIEL (Jhony Lowery MD [facility]) Ondansetron 2 MG/ML Injectable Solution Ondansetron HCl 40 MG/20ML Injection Solution Ondansetron HCl 40 MG/20ML Injection Solution 03/21/20 12:00:00 AM EST 1 active ondansetron 2 MG/ ML Injectable Solution JUAN DANIEL (Jhony Lowery MD [facility]) ammonium lactate 120 MG/ML Topical Cream Ammonium Lact ate 12% External Cream Ammonium Lactate 12% External Cream 03/21/2020 12:00:00 AM EST active ammonium lactate 120 MG/ML Topical Cream JUAN DANIEL (Jhony Lowery MD [facility]) Lactulose 667 MG/ML Oral Solution Lactulose 10 GM/15ML Oral Solution Lactulose 10 GM/15ML Oral Solution 03/21/2020 12:00:00 AM EST 1 active lactulose 667 MG/ML Oral Solution JUAN DANIEL (Jhony Lowery MD [facility]) Amitriptyline Hydrochloride 50 MG Oral T ablet Amitriptyline HCl 50 MG Oral Tablet Amitriptyline HCl 50 MG Oral Tablet 03/21/2020 12:00:00 AM EST 1 active amitriptyline hydrochloride 50 M G Oral Tablet JUAN DANIEL (Jhony Lowery MD [facility]) Amitriptyline Hydrochloride 50 MG Oral T ablet Amitriptyline HCl 50 MG Oral Tablet Amitriptyline HCl 50 MG Oral Tablet 03/21/2020 12:00:00 AM EST 1 active amitriptyline hydrochloride 50 M G Oral Tablet JUAN DANIEL (Jhony Lowery MD [facility]) insulin detemir 100 UNT/ML Injectable So lution Insulin Detemir 100 UNIT/ML Subcutaneous Solution Insulin Detemir 100 UNIT/ML Subcutaneous Solution 03/21/2020 12:00:00 AM EST 1 active insulin detemir 100 UNT/ML Injectable Solution JUAN DANIEL (Jhony Lowery MD [facility]) Simethicone 80 MG Oral Tablet Simethicone 80 MG Oral Tablet 03/21/2020 12:00:00 AM EST [address] (Jhony Lowery MD [facility]) Albuterol 0.83 MG/ML Inhalant Solution A lbuterol Sulfate (2.5 MG/3ML) 0.083% Inhalation Nebulization solution Albuterol Sulfate (2.5 MG/3ML) 0.083% Inhalation Nebulization solution 03/21/2020 12:00:00 AM EST 1 active albuterol 0.83 MG/ML Inhalation Solution [place] (Brad Lowery MD [facility]) Cholecalciferol 1000 UNT Oral Capsule Ch olecalciferol 25 MCG (1000 UT) Oral Capsule Cholecalciferol 25 MCG (1000 UT) Oral Capsule 03/21/20 12:00:00 AM EST 1 active cholecalciferol 0 .025 MG Oral Capsule [place] (Jhony Lowery MD [facility]) Metoclopramide 10 MG Oral Tablet Metoclopramide HCl 10 MG Oral Tablet Metoclopramide HCl 10 MG Oral Tablet 03/21/2020 12:00:00 AM EST 1 active metoclopramide 10 MG Oral Tablet [place] (Jhony Lowery MD [facility]) Triamcinolone Acetonide 1 MG/ML Topical Cream Triamcinolone Acetonide 0.1% External Cream Triamcinolone Acetonide 0.1% External Cream 03/21/2020 12:00:00 AM EST 1 active triamcinolone jennifer tonide 1 MG/ML Topical Cream [place] (Jhony Lowery MD [facility]) Mupirocin 0.02 MG/MG Topical Ointment Mupirocin 2% Ext ernal Ointment Mupirocin 2% External Ointment 03/21/2020 12:00:00 AM EST 1 active mupirocin 0.02 MG/MG Topical Ointment [place] (Jhony Lowery MD [facility]) doxycycline hyclate 100 MG Oral Tablet Doxycycline Hyc late 100 MG Doxycycline Hyclate 100 MG 03/20/2020 12:00:00 AM EST 1.0 {tablet} suspended Doxycycline Hyclate 100 MG eCW1 ([facility]) doxycycline hyclate 100 MG Oral Tablet Doxycycline Hyc late 100 MG Doxycycline Hyclate 100 MG 03/20/2020 12:00:00 AM EST 1.0 {tablet} suspended Doxycycline Hyclate 100 MG eCW1 ([facility]) doxycycline hyclate 100 MG Oral Tablet Doxycycline Hyc late 100 MG Doxycycline Hyclate 100 MG 03/20/2020 12:00:00 AM EST 1.0 {tablet} suspended Doxycycline Hyclate 100 MG eCW1 ([facility]) doxycycline hyclate 100 MG Oral Tablet Doxycycline Hyc late 100 MG Doxycycline Hyclate 100 MG 03/20/2020 12:00:00 AM EST 1.0 {tablet} suspended Doxycycline Hyclate 100 MG eCW1 ([facility]) doxycycline hyclate 100 MG Oral Tablet Doxycycline Hyc late 100 MG Doxycycline Hyclate 100 MG 03/20/2020 12:00:00 AM EST 1.0 {tablet} suspended Doxycycline Hyclate 100 MG eCW1 ([facility]) doxycycline hyclate 100 MG Oral Tablet Doxycycline Hyc late 100 MG Doxycycline Hyclate 100 MG 03/20/2020 12:00:00 AM EST 1.0 {tablet} active Doxycycline Hyclate 100 MG eCW1 ([facility]) doxycycline hyclate 100 MG Oral Tablet Doxycycline Hyc late 100 MG Doxycycline Hyclate 100 MG 03/20/2020 12:00:00 AM EST 1.0 {tablet} active Doxycycline Hyclate 100 MG eCW1 ([facility]) doxycycline hyclate 100 MG Oral Tablet Doxycycline Hyc late 100 MG Doxycycline Hyclate 100 MG 03/20/2020 12:00:00 AM EST 1.0 {tablet} suspended Doxycycline Hyclate 100 MG eCW1 ([facility]) doxycycline hyclate 100 MG Oral Tablet Doxycycline Hyc late 100 MG Doxycycline Hyclate 100 MG 03/20/2020 12:00:00 AM EST 1.0 {tablet} suspended Doxycycline Hyclate 100 MG eCW1 ([facility]) doxycycline hyclate 100 MG Oral Tablet Doxycycline Hyc late 100 MG Doxycycline Hyclate 100 MG 03/20/2020 12:00:00 AM EST 1.0 {tablet} suspended Doxycycline Hyclate 100 MG eCW1 ([facility]) doxycycline hyclate 100 MG Oral Tablet Doxycycline Hyc late 100 MG Doxycycline Hyclate 100 MG 03/20/2020 12:00:00 AM EST 1.0 {tablet} active Doxycycline Hyclate 100 MG eCW1 ([facility]) doxycycline hyclate 100 MG Oral Tablet Doxycycline Hyc late 100 MG Doxycycline Hyclate 100 MG 03/20/2020 12:00:00 AM EST 1.0 {tablet} active Doxycycline Hyclate 100 MG eCW1 ([facility]) doxycycline hyclate 100 MG Oral Tablet Doxycycline Hyc late 100 MG Doxycycline Hyclate 100 MG 03/20/2020 12:00:00 AM EST 1.0 {tablet} active Doxycycline Hyclate 100 MG eCW1 ([facility]) doxycycline hyclate 100 MG Oral Tablet Doxycycline Hyc late 100 MG Doxycycline Hyclate 100 MG 03/20/2020 12:00:00 AM EST 1.0 {tablet} suspended Doxycycline Hyclate 100 MG eCW1 ([facility]) doxycycline hyclate 100 MG Oral Tablet DOXYCYCLINE [...] {tablet} active Doxycycline Hyclate 100 MG eCW1 ([facility]) doxycycline hyclate 100 MG Oral Tablet Doxycycline Hyc late 100 MG Doxycycline Hyclate 100 MG 03/20/2020 12:00:00 AM EST 1.0 {tablet} suspended Doxycycline Hyclate 100 MG eCW1 ([facility]) doxycycline hyclate 100 MG Oral Tablet Doxycycline Hyc late 100 MG Doxycycline Hyclate 100 MG 03/20/2020 12:00:00 AM EST 1.0 {tablet} suspended Doxycycline Hyclate 100 MG eCW1 ([facility]) doxycycline hyclate 100 MG Oral Tablet Doxycycline Hyc late 100 MG Doxycycline Hyclate 100 MG 03/20/2020 12:00:00 AM EST 1.0 {tablet} active Doxycycline Hyclate 100 MG eCW1 ([facility]) doxycycline hyclate 100 MG Oral Tablet Doxycycline Hyc late 100 MG Doxycycline Hyclate 100 MG 03/20/2020 12:00:00 AM EST 1.0 {tablet} suspended Doxycycline Hyclate 100 MG eCW1 ([facility]) doxycycline hyclate 100 MG Oral Tablet Doxycycline Hyc late 100 MG Doxycycline Hyclate 100 MG 03/20/2020 12:00:00 AM EST 1.0 {tablet} suspended Doxycycline Hyclate 100 MG eCW1 ([facility]) doxycycline hyclate 100 MG Oral Tablet Doxycycline Hyc late 100 MG Doxycycline Hyclate 100 MG 03/20/2020 12:00:00 AM EST 1.0 {tablet} suspended Doxycycline Hyclate 100 MG eCW1 ([facility]) doxycycline hyclate 100 MG Oral Tablet Doxycycline Hyc late 100 MG Doxycycline Hyclate 100 MG 03/20/2020 12:00:00 AM EST 1.0 {tablet} suspended Doxycycline Hyclate 100 MG eCW1 ([facility]) doxycycline hyclate 100 MG Oral Tablet Doxycycline Hyc late 100 MG Doxycycline Hyclate 100 MG 03/20/2020 12:00:00 AM EST 1.0 {tablet} active Doxycycline Hyclate 100 MG eCW1 ([facility]) doxycycline hyclate 100 MG Oral Tablet Doxycycline Hyc late 100 MG Doxycycline Hyclate 100 MG 03/20/2020 12:00:00 AM EST 1.0 {tablet} active Doxycycline Hyclate 100 MG eCW1 ([facility]) doxycycline hyclate 100 MG Oral Tablet Doxycycline Hyc late 100 MG Doxycycline Hyclate 100 MG 03/20/2020 12:00:00 AM EST 1.0 {tablet} suspended Doxycycline Hyclate 100 MG eCW1 ([facility]) doxycycline hyclate 100 MG Oral Tablet Doxycycline Hyc late 100 MG Doxycycline Hyclate 100 MG 03/20/2020 12:00:00 AM EST 1.0 {tablet} suspended Doxycycline Hyclate 100 MG eCW1 ([facility]) doxycycline hyclate 100 MG Oral Tablet Doxycycline Hyc late 100 MG Doxycycline Hyclate 100 MG 03/20/2020 12:00:00 AM EST 1.0 {tablet} suspended Doxycycline Hyclate 100 MG eCW1 ([facility]) doxycycline hyclate 100 MG Oral Tablet Doxycycline Hyc late 100 MG Doxycycline Hyclate 100 MG 03/20/2020 12:00:00 AM EST 1.0 {tablet} suspended Doxycycline Hyclate 100 MG eCW1 ([facility]) doxycycline hyclate 100 MG Oral Tablet Doxycycline Hyc late 100 MG Doxycycline Hyclate 100 MG 03/20/2020 12:00:00 AM EST 1.0 {tablet} suspended Doxycycline Hyclate 100 MG eCW1 ([facility]) 3 ML liraglutide 6 MG/ML Pen Injector [Victoza] Victoz a 18 MG/3ML Victoza 18 MG/3ML 03/17/2020 12:00:00 AM EST active Victoza 18 MG/3ML eCW1 ([facility]) Sodium Chloride 0.9 % UNK 03/17/2020 12:00:00 AM EST active Sodium Chloride 0.9 % eCW1 ([facility]) 3 ML liraglutide 6 MG/ML Pen Injector [Victoza] Victoz a 18 MG/3ML Victoza 18 MG/3ML 03/17/2020 12:00:00 AM EST active Victoza 18 MG/3ML eCW1 ([facility]) Sodium Chloride 0.9 % UNK 03/17/2020 12:00:00 AM EST active Sodium Chloride 0.9 % eCW1 ([facility]) Sodium Chloride 0.9 % UNK 03/17/2020 12:00:00 AM EST active Sodium Chloride 0.9 % eCW1 ([facility]) Sodium Chloride 0.9 % UNK 03/17/2020 12:00:00 AM EST active Sodium Chloride 0.9 % eCW1 ([facility]) ciclopirox 80 MG/ML Topical Solution Ciclopirox 8 % Ciclopir ox 8 % 03/17/2020 12:00:00 AM EST active Ciclopir ox 8 % eCW1 ([facility]) 3 ML liraglutide 6 MG/ML Pen Injector [Victoza] Victoz a 18 MG/3ML Victoza 18 MG/3ML 03/17/2020 12:00:00 AM EST active Victoza 18 MG/3ML eCW1 ([facility]) Sodium Chloride 0.9 % UNK 03/17/2020 12:00:00 AM EST active Sodium Chloride 0.9 % eCW1 ([facility]) 3 ML liraglutide 6 MG/ML Pen Injector [Victoza] Victoz a 18 MG/3ML Victoza 18 MG/3ML 03/17/2020 12:00:00 AM EST active Victoza 18 MG/3ML eCW1 ([facility]) ciclopirox 80 MG/ML Topical Solution Ciclopirox 8 % Ciclopir ox 8 % 03/17/2020 12:00:00 AM EST active Ciclopir ox 8 % eCW1 ([facility]) ciclopirox 80 MG/ML Topical Solution Ciclopirox 8 % Ciclopir ox 8 % 03/17/2020 12:00:00 AM EST active Ciclopir ox 8 % eCW1 ([facility]) 3 ML liraglutide 6 MG/ML Pen Injector [Victoza] Victoz a 18 MG/3ML Victoza 18 MG/3ML 03/17/2020 12:00:00 AM EST active Victoza 18 MG/3ML eCW1 ([facility]) Sodium Chloride 0.9 % UNK 03/17/2020 12:00:00 AM EST active Sodium Chloride 0.9 % eCW1 ([facility]) Sodium Chloride 0.9 % UNK 03/17/2020 12:00:00 AM EST active Sodium Chloride 0.9 % eCW1 ([facility]) ciclopirox 80 MG/ML Topical Solution Ciclopirox 8 % Ciclopir ox 8 % 03/17/2020 12:00:00 AM EST active Ciclopir ox 8 % eCW1 ([facility]) ciclopirox 80 MG/ML Topical Solution Ciclopirox 8 % Ciclopir ox 8 % 03/17/2020 12:00:00 AM EST active Ciclopir ox 8 % eCW1 ([facility]) 3 ML liraglutide 6 MG/ML Pen Injector [Victoza] Victoz a 18 MG/3ML Victoza 18 MG/3ML 03/17/2020 12:00:00 AM EST active Victoza 18 MG/3ML eCW1 ([facility]) 3 ML liraglutide 6 MG/ML Pen Injector [Victoza] Victoz a 18 MG/3ML Victoza 18 MG/3ML 03/17/2020 12:00:00 AM EST active Victoza 18 MG/3ML eCW1 ([facility]) 0.6 mg/0.1 mL (18 mg/3 mL) 03/17/2020 12:00:00 AM EST pen in jector 6 INJECT 0.6MG UNDER THE SKIN DAILY FOR 1 WEEK THEN INCREASE TO 1.2MG DAILY INJECT 0.6MG UNDER THE SKIN DAILY FOR 1 WEEK THEN INCREASE TO 1.2MG DAILY SOLD: 04/09/2020 [facility] ciclopirox 80 MG/ML Topical Solution Ciclopirox 8 % Ciclopir ox 8 % 03/17/2020 12:00:00 AM EST active Ciclopir ox 8 % eCW1 ([facility]) 0.6 mg/0.1 mL (18 mg/3 mL) 03/17/2020 12:00:00 AM EST pen in jector 6 INJECT 0.6MG UNDER THE SKIN DAILY FOR 1 WEEK THEN INCREASE TO 1.2MG DAILY INJECT 0.6MG UNDER THE SKIN DAILY FOR 1 WEEK THEN INCREASE TO 1.2MG DAILY SOLD: 03/17/2020 [facility] Sodium Chloride 0.9 % UNK 03/17/2020 12:00:00 AM EST active Sodium Chloride 0.9 % eCW1 ([facility]) ciclopirox 80 MG/ML Topical Solution Ciclopirox 8 % Ciclopir ox 8 % 03/17/2020 12:00:00 AM EST active Ciclopir ox 8 % eCW1 ([facility]) ciclopirox 80 MG/ML Topical Solution Ciclopirox 8 % Ciclopir ox 8 % 03/17/2020 12:00:00 AM EST active Ciclopir ox 8 % eCW1 ([facility]) 3 ML liraglutide 6 MG/ML Pen Injector [Victoza] Victoz a 18 MG/3ML Victoza 18 MG/3ML 03/17/2020 12:00:00 AM EST active Victoza 18 MG/3ML eCW1 ([facility]) 3 ML liraglutide 6 MG/ML Pen Injector [Victoza] Victoz a 18 MG/3ML Victoza 18 MG/3ML 03/17/2020 12:00:00 AM EST active Victoza 18 MG/3ML eCW1 ([facility]) ciclopirox 80 MG/ML Topical Solution Ciclopirox 8 % Ciclopir ox 8 % 03/17/2020 12:00:00 AM EST active Ciclopir ox 8 % eCW1 ([facility]) Sodium Chloride 0.9 % UNK 03/17/2020 12:00:00 AM EST active Sodium Chloride 0.9 % eCW1 ([facility]) Sodium Chloride 0.9 % UNK 03/17/2020 12:00:00 AM EST active Sodium Chloride 0.9 % eCW1 ([facility]) 3 ML liraglutide 6 MG/ML Pen Injector [Victoza] Victoz a 18 MG/3ML Victoza 18 MG/3ML 03/17/2020 12:00:00 AM EST active Victoza 18 MG/3ML eCW1 ([facility]) ciclopirox 80 MG/ML Topical Solution Ciclopirox 8 % Ciclopir ox 8 % 03/17/2020 12:00:00 AM EST active Ciclopir ox 8 % eCW1 ([facility]) ciclopirox 80 MG/ML Topical Solution Ciclopirox 8 % Ciclopir ox 8 % 03/17/2020 12:00:00 AM EST active Ciclopir ox 8 % eCW1 ([facility]) ciclopirox 80 MG/ML Topical Solution Ciclopirox 8 % Ciclopir ox 8 % 03/17/2020 12:00:00 AM EST active Ciclopir ox 8 % eCW1 ([facility]) Sodium Chloride 0.9 % UNK 03/17/2020 12:00:00 AM EST active Sodium Chloride 0.9 % eCW1 ([facility]) Sodium Chloride 0.9 % UNK 03/17/2020 12:00:00 AM EST active Sodium Chloride 0.9 % eCW1 ([facility]) ciclopirox 80 MG/ML Topical Solution Ciclopirox 8 % Ciclopir ox 8 % 03/17/2020 12:00:00 AM EST active Ciclopir ox 8 % eCW1 ([facility]) ciclopirox 80 MG/ML Topical Solution Ciclopirox 8 % Ciclopir ox 8 % 03/17/2020 12:00:00 AM EST active Ciclopir ox 8 % eCW1 ([facility]) 3 ML liraglutide 6 MG/ML Pen Injector [Victoza] Victoz a 18 MG/3ML Victoza 18 MG/3ML 03/17/2020 12:00:00 AM EST active Victoza 18 MG/3ML eCW1 ([facility]) 3 ML liraglutide 6 MG/ML Pen Injector [Victoza] Victoz a 18 MG/3ML Victoza 18 MG/3ML 03/17/2020 12:00:00 AM EST active Victoza 18 MG/3ML eCW1 ([facility]) 8 % 03/17/2020 12:00:00 AM EST solution [...] EST active Ciclopir ox 8 % eCW1 ([facility]) 3 ML liraglutide 6 MG/ML Pen Injector [Victoza] Victoz a 18 MG/3ML Victoza 18 MG/3ML 03/17/2020 12:00:00 AM EST active Victoza 18 MG/3ML eCW1 ([facility]) ciclopirox 80 MG/ML Topical Solution Ciclopirox 8 % Ciclopir ox 8 % 03/17/2020 12:00:00 AM EST active Ciclopir ox 8 % eCW1 ([facility]) ciclopirox 80 MG/ML Topical Solution Ciclopirox 8 % Ciclopir ox 8 % 03/17/2020 12:00:00 AM EST active Ciclopir ox 8 % eCW1 ([facility]) Sodium Chloride 0.9 % UNK 03/17/2020 12:00:00 AM EST active Sodium Chloride 0.9 % eCW1 ([facility]) 3 ML liraglutide 6 MG/ML Pen Injector [Victoza] Victoz a 18 MG/3ML Victoza 18 MG/3ML 03/17/2020 12:00:00 AM EST active Victoza 18 MG/3ML eCW1 ([facility]) 8 % 03/17/2020 12:00:00 AM EST solution 6 APPLY TO THE 5TH FINGERNAIL ONCE A DAY, CLEAN OFF WITH AN ALCOHOL PREP PAD ONCE A WEEK APPLY TO THE 5TH FINGERNAIL ONCE A DAY, CLEAN OFF WITH AN ALCOHOL PREP PAD ONCE A WEEK SOLD: 04/14/2020 [facility] Sodium Chloride 0.9 % UNK 03/17/2020 12:00:00 AM EST active Sodium Chloride 0.9 % eCW1 ([facility]) ciclopirox 80 MG/ML Topical Solution Ciclopirox 8 % Ciclopir ox 8 % 03/17/2020 12:00:00 AM EST active Ciclopir ox 8 % eCW1 ([facility]) 3 ML liraglutide 6 MG/ML Pen Injector [Victoza] Victoz a 18 MG/3ML Victoza 18 MG/3ML 03/17/2020 12:00:00 AM EST active Victoza 18 MG/3ML eCW1 ([facility]) 3 ML liraglutide 6 MG/ML Pen Injector [Victoza] Victoz a 18 MG/3ML Victoza 18 MG/3ML 03/17/2020 12:00:00 AM EST active Victoza 18 MG/3ML eCW1 ([facility]) Sodium Chloride 0.9 % UNK 03/17/2020 12:00:00 AM EST active Sodium Chloride 0.9 % eCW1 ([facility]) ciclopirox 80 MG/ML Topical Solution Ciclopirox 8 % Ciclopir ox 8 % 03/17/2020 12:00:00 AM EST active Ciclopir ox 8 % eCW1 ([facility]) Sodium Chloride 0.9 % UNK 03/17/2020 12:00:00 AM EST active Sodium Chloride 0.9 % eCW1 ([facility]) 3 ML liraglutide 6 MG/ML Pen Injector [Victoza] Victoz a 18 MG/3ML Victoza 18 MG/3ML 03/17/2020 12:00:00 AM EST active Victoza 18 MG/3ML eCW1 ([facility]) ciclopirox 80 MG/ML Topical Solution Ciclopirox 8 % Ciclopir ox 8 % 03/17/2020 12:00:00 AM EST active Ciclopir ox 8 % eCW1 ([facility]) Sodium Chloride 0.9 % UNK 03/17/2020 12:00:00 AM EST active Sodium Chloride 0.9 % eCW1 ([facility]) 3 ML liraglutide 6 MG/ML Pen Injector [Victoza] Victoz a 18 MG/3ML Victoza 18 MG/3ML 03/17/2020 12:00:00 AM EST active Victoza 18 MG/3ML eCW1 ([facility]) 3 ML liraglutide 6 MG/ML Pen Injector [Victoza] Victoz a 18 MG/3ML Victoza 18 MG/3ML 03/17/2020 12:00:00 AM EST active Victoza 18 MG/3ML eCW1 ([facility]) 3 ML liraglutide 6 MG/ML Pen Injector [Victoza] Victoz a 18 MG/3ML Victoza 18 MG/3ML 03/17/2020 12:00:00 AM EST active Victoza 18 MG/3ML eCW1 ([facility]) Sodium Chloride 0.9 % UNK 03/17/2020 12:00:00 AM EST active Sodium Chloride 0.9 % eCW1 ([facility]) ciclopirox 80 MG/ML Topical Solution Ciclopirox 8 % Ciclopir ox 8 % 03/17/2020 12:00:00 AM EST active Ciclopir ox 8 % eCW1 ([facility]) 3 ML liraglutide 6 MG/ML Pen Injector [Victoza] Victoz a 18 MG/3ML Victoza 18 MG/3ML 03/17/2020 12:00:00 AM EST active Victoza 18 MG/3ML eCW1 ([facility]) 3 ML liraglutide 6 MG/ML Pen Injector [Victoza] Victoz a 18 MG/3ML Victoza 18 MG/3ML 03/17/2020 12:00:00 AM EST active Victoza 18 MG/3ML eCW1 ([facility]) Sodium Chloride 0.9 % UNK 03/17/2020 12:00:00 AM EST active Sodium Chloride 0.9 % eCW1 ([facility]) ciclopirox 80 MG/ML Topical Solution Ciclopirox 8 % Ciclopir ox 8 % 03/17/2020 12:00:00 AM EST active Ciclopir ox 8 % eCW1 ([facility]) 3 ML liraglutide 6 MG/ML Pen Injector [Victoza] Victoz a 18 MG/3ML Victoza 18 MG/3ML 03/17/2020 12:00:00 AM EST active Victoza 18 MG/3ML eCW1 ([facility]) Sodium Chloride 0.9 % UNK 03/17/2020 12:00:00 AM EST active Sodium Chloride 0.9 % eCW1 ([facility]) 3 ML liraglutide 6 MG/ML Pen Injector [Victoza] Victoz a 18 MG/3ML Victoza 18 MG/3ML 03/17/2020 12:00:00 AM EST active Victoza 18 MG/3ML eCW1 ([facility]) 3 ML liraglutide 6 MG/ML Pen Injector [Victoza] Victoz a 18 MG/3ML Victoza 18 MG/3ML 03/17/2020 12:00:00 AM EST active Victoza 18 MG/3ML eCW1 ([facility]) 3 ML liraglutide 6 MG/ML Pen Injector [Victoza] Victoz a 18 MG/3ML Victoza 18 MG/3ML 03/17/2020 12:00:00 AM EST active Victoza 18 MG/3ML eCW1 ([facility]) ciclopirox 80 MG/ML Topical Solution Ciclopirox 8 % Ciclopir ox 8 % 03/17/2020 12:00:00 AM EST active Ciclopir ox 8 % eCW1 ([facility]) ciclopirox 80 MG/ML Topical Solution Ciclopirox 8 % Ciclopir ox 8 % 03/17/2020 12:00:00 AM EST active Ciclopir ox 8 % eCW1 ([facility]) Sodium Chloride 0.9 % UNK 03/17/2020 12:00:00 AM EST active Sodium Chloride 0.9 % eCW1 ([facility]) Sodium Chloride 0.9 % UNK 03/17/2020 12:00:00 AM EST active Sodium Chloride 0.9 % eCW1 ([facility]) Sodium Chloride 0.9 % UNK 03/17/2020 12:00:00 AM EST active Sodium Chloride 0.9 % eCW1 ([facility]) Sodium Chloride 0.9 % UNK 03/17/2020 12:00:00 AM EST active Sodium Chloride 0.9 % eCW1 ([facility]) 3 ML liraglutide 6 MG/ML Pen Injector [Victoza] Victoz a 18 MG/3ML Victoza 18 MG/3ML 03/17/2020 12:00:00 AM EST active Victoza 18 MG/3ML eCW1 ([facility]) 3 ML liraglutide 6 MG/ML Pen Injector [Victoza] Victoz a 18 MG/3ML Victoza 18 MG/3ML 03/17/2020 12:00:00 AM EST active Victoza 18 MG/3ML eCW1 ([facility]) ciclopirox 80 MG/ML Topical Solution Ciclopirox 8 % Ciclopir ox 8 % 03/17/2020 12:00:00 AM EST active Ciclopir ox 8 % eCW1 ([facility]) 3 ML liraglutide 6 MG/ML Pen Injector [Victoza] Victoz a 18 MG/3ML Victoza 18 MG/3ML 03/17/2020 12:00:00 AM EST active Victoza 18 MG/3ML eCW1 ([facility]) Sodium Chloride 0.9 % UNK 03/17/2020 12:00:00 AM EST active Sodium Chloride 0.9 % eCW1 ([facility]) ciclopirox 80 MG/ML Topical Solution Ciclopirox 8 % Ciclopir ox 8 % 03/17/2020 12:00:00 AM EST active Ciclopir ox 8 % eCW1 ([facility]) ciclopirox 80 MG/ML Topical Solution Ciclopirox 8 % Ciclopir ox 8 % 03/17/2020 12:00:00 AM EST active Ciclopir ox 8 % eCW1 ([facility]) 3 ML liraglutide 6 MG/ML Pen Injector [Victoza] Victoz a 18 MG/3ML Victoza 18 MG/3ML 03/17/2020 12:00:00 AM EST active Victoza 18 MG/3ML eCW1 ([facility]) Sodium Chloride 0.9 % UNK 03/17/2020 12:00:00 AM EST active Sodium Chloride 0.9 % eCW1 ([facility]) Sodium Chloride 0.9 % UNK 03/17/2020 12:00:00 AM EST active Sodium Chloride 0.9 % eCW1 ([facility]) ciclopirox 80 MG/ML Topical Solution Ciclopirox 8 % Ciclopir ox 8 % 03/17/2020 12:00:00 AM EST active Ciclopir ox 8 % eCW1 ([facility]) ciclopirox 80 MG/ML Topical Solution Ciclopirox 8 % Ciclopir ox 8 % 03/17/2020 12:00:00 AM EST active Ciclopir ox 8 % eCW1 ([facility]) Sodium Chloride 0.9 % UNK 03/17/2020 12:00:00 AM EST active Sodium Chloride 0.9 % eCW1 ([facility]) 3 ML liraglutide 6 MG/ML Pen Injector [Victoza] Victoz a 18 MG/3ML Victoza 18 MG/3ML 03/17/2020 12:00:00 AM EST active Victoza 18 MG/3ML eCW1 ([facility]) Sodium Chloride 0.9 % UNK 03/17/2020 12:00:00 AM EST active Sodium Chloride 0.9 % eCW1 ([facility]) Sodium Chloride 0.9 % UNK 03/17/2020 12:00:00 AM EST active Sodium Chloride 0.9 % eCW1 ([facility]) ciclopirox 80 MG/ML Topical Solution Ciclopirox 8 % Ciclopir ox 8 % 03/17/2020 12:00:00 AM EST active Ciclopir ox 8 % eCW1 ([facility]) 3 ML liraglutide 6 MG/ML Pen Injector [Victoza] Victoz a 18 MG/3ML Victoza 18 MG/3ML 03/17/2020 12:00:00 AM EST active Victoza 18 MG/3ML eCW1 ([facility]) Sodium Chloride 0.9 % UNK 03/17/2020 12:00:00 AM EST active Sodium Chloride 0.9 % eCW1 ([facility]) ciclopirox 80 MG/ML Topical Solution Ciclopirox 8 % Ciclopir ox 8 % 03/17/2020 12:00:00 AM EST active Ciclopir ox 8 % eCW1 ([facility]) ciclopirox 80 MG/ML Topical Solution Ciclopirox 8 % Ciclopir ox 8 % 03/17/2020 12:00:00 AM EST active Ciclopir ox 8 % eCW1 ([facility]) Sodium Chloride 0.9 % UNK 03/17/2020 12:00:00 AM EST active Sodium Chloride 0.9 % eCW1 ([facility]) 31 gauge x 5/16" 03/03/2020 12:00:00 AM [...] 02/17/2020 12:00:00 AM EST RECTAL active MEDENT ([facility] ) 50 mg 02/17/2020 12:00:00 AM [...] GRAM VAGINALLY EVERY 72 HOURS SOLD: 0 [facility] 0.01 % (0.1 mg/gram) 02/04/2020 12:00:00 AM EDT cream 42 INSERT 1 GRAM VAGINALLY EVERY 72 HOURS INSERT 1 GRAM VAGINALLY EVERY 72 HOURS SOLD: 0 [facility] Doxycycline Monohydrate 100 MG Oral Tablet Doxycycline Monoh ydrate 100 MG 01/24/2020 12:00:00 AM EDT 1.0 {tablet} suspende d Doxycycline Monohydrate 100 MG eCW1 ([facility]) Doxycycline Monohydrate 100 MG Oral Tablet Doxycycline Monoh ydrate 100 MG 01/24/2020 12:00:00 AM EDT 1.0 {tablet} suspende d Doxycycline Monohydrate 100 MG eCW1 ([facility]) 100 mg 01/24/2020 12:00:00 AM EDT tablet 10 TAKE ONE TABLET BY MOUTH TWICE A DAY FOR 5 DAYS TAKE ONE TABLET BY MOUTH TWICE A DAY FOR 5 DAYS SOLD: 01/24/2020 [facility] Doxycycline Monohydrate 100 MG Oral Tablet Doxycycline Monoh ydrate 100 MG 01/24/2020 12:00:00 AM EDT 1.0 {tablet} suspende d Doxycycline Monohydrate 100 MG eCW1 ([facility]) Doxycycline Monohydrate 100 MG Oral Tablet Doxycycline Monoh ydrate 100 MG 01/24/2020 12:00:00 AM EDT 1.0 {tablet} active Doxycycline Monohydrate 100 MG eCW1 ([facility]) Doxycycline Monohydrate 100 MG Oral Tablet Doxycycline Monoh ydrate 100 MG 01/24/2020 12:00:00 AM EDT 1.0 {tablet} suspende d Doxycycline Monohydrate 100 MG eCW1 ([facility]) Doxycycline Monohydrate 100 MG Oral Tablet Doxycycline Monoh ydrate 100 MG 01/24/2020 12:00:00 AM EDT 1.0 {tablet} suspende d Doxycycline Monohydrate 100 MG eCW1 ([facility]) Doxycycline Monohydrate 100 MG Oral Tablet Doxycycline Monoh ydrate 100 MG 01/24/2020 12:00:00 AM EDT 1.0 {tablet} active Doxycycline Monohydrate 100 MG eCW1 ([facility]) Doxycycline Monohydrate 100 MG Oral Tablet Doxycycline Monoh ydrate 100 MG 01/24/2020 12:00:00 AM EDT 1.0 {tablet} active Doxycycline Monohydrate 100 MG eCW1 ([facility]) Doxycycline Monohydrate 100 MG Oral Tablet Doxycycline Monoh ydrate 100 MG 01/24/2020 12:00:00 AM EDT 1.0 {tablet} suspende d Doxycycline Monohydrate 100 MG eCW1 ([facility]) Doxycycline Monohydrate 100 MG Oral Tablet Doxycycline Monoh ydrate 100 MG 01/24/2020 12:00:00 AM EDT 1.0 {tablet} suspende d Doxycycline Monohydrate 100 MG eCW1 ([facility]) Doxycycline Monohydrate 100 MG Oral Tablet Doxycycline Monoh ydrate 100 MG 01/24/2020 12:00:00 AM EDT 1.0 {tablet} active Doxycycline Monohydrate 100 MG eCW1 ([facility]) 4 mg/2 mL 01/19/2020 12:00:00 AM EDT [...] Mesalamine 01/05/2020 12:00:00 AM EDT active MEDENT ([facility]) 4 mg 12/25/2019 12:00:00 [...] EDT active Hydromorphone HCl 4 MG eCW1 ([facility]) Hydromorphone Hydrochloride 4 MG Oral Tablet Hydromorp nellie HCl 4 MG Hydromorphone HCl 4 MG 10/21/2019 12:00:00 AM EDT suspended Hydromorphone HCl 4 MG eCW1 ([facility]) Hydromorphone Hydrochloride 4 MG Oral Tablet Hydromorp nellie HCl 4 MG Hydromorphone HCl 4 MG 10/21/2019 12:00:00 AM EDT active Hydromorphone HCl 4 MG eCW1 ([facility]) Hydromorphone Hydrochloride 4 MG Oral Tablet Hydromorp nellie HCl 4 MG Hydromorphone HCl 4 MG 10/21/2019 12:00:00 AM EDT active Hydromorphone HCl 4 MG eCW1 ([facility]) Hydromorphone Hydrochloride 4 MG Oral Tablet Hydromorp nellie HCl 4 MG Hydromorphone HCl 4 MG 10/21/2019 12:00:00 AM EDT suspended Hydromorphone HCl 4 MG eCW1 ([facility]) Hydromorphone Hydrochloride 4 MG Oral Tablet Hy[facility]romorp nellie HCl 4 MG Hydromorphone HCl 4 MG 10/21/2019 12:00:00 AM EDT active Hydromorphone HCl 4 MG eCW1 ([facility]) Hydromorphone Hydrochloride 4 MG Oral Tablet Hy[facility]romorp nellie HCl 4 MG Hydromorphone HCl 4 MG 10/21/2019 12:00:00 AM EDT active Hydromorphone HCl 4 MG eCW1 ([facility]) Hydromorphone Hydrochloride 4 MG Oral Tablet Hy[facility]romorp nellie HCl 4 MG Hydromorphone HCl 4 MG 10/21/2019 12:00:00 AM EDT suspended Hydromorphone HCl 4 MG eCW1 ([facility]) 4 mg 10/21/2019 12:00:00 AM EDT tablet [...] EDT active Hydromorphone HCl 4 MG eCW1 ([facility]) Hydromorphone Hydrochloride 4 MG Oral Tablet Hy[facility]romorp nellie HCl 4 MG Hydromorphone HCl 4 MG 10/21/2019 12:00:00 AM EDT active Hydromorphone HCl 4 MG eCW1 ([facility]) Hydromorphone Hydrochloride 4 MG Oral Tablet Hydromorp nellie HCl 4 MG Hydromorphone HCl 4 MG 10/21/2019 12:00:00 AM EDT active Hydromorphone HCl 4 MG eCW1 ([facility]) Hydromorphone Hydrochloride 4 MG Oral Tablet Hydromorp nellie HCl 4 MG Hydromorphone HCl 4 MG 10/21/2019 12:00:00 AM EDT active Hydromorphone HCl 4 MG eCW1 ([facility]) Hydromorphone Hydrochloride 4 MG Oral Tablet Hydromorp nellie HCl 4 MG Hydromorphone HCl 4 MG 10/21/2019 12:00:00 AM EDT suspended Hydromorphone HCl 4 MG eCW1 ([facility]) Hydromorphone Hydrochloride 4 MG Oral Tablet Hydromorp nellie HCl 4 MG Hydromorphone HCl 4 MG 10/21/2019 12:00:00 AM EDT suspended Hydromorphone HCl 4 MG eCW1 ([facility]) Hydromorphone Hydrochloride 4 MG Oral Tablet Hydromorp nellie HCl 4 MG Hydromorphone HCl 4 MG 10/21/2019 12:00:00 AM EDT active Hydromorphone HCl 4 MG eCW1 ([facility]) Hydromorphone Hydrochloride 4 MG Oral Tablet Hydromorp nellie HCl 4 MG Hydromorphone HCl 4 MG 10/21/2019 12:00:00 AM EDT suspended Hydromorphone HCl 4 MG eCW1 ([facility]) Hydromorphone Hydrochloride 4 MG Oral Tablet Hydromorp nellie HCl 4 MG Hydromorphone HCl 4 MG 10/21/2019 12:00:00 AM EDT suspended Hydromorphone HCl 4 MG eCW1 ([facility]) Hydromorphone Hydrochloride 4 MG Oral Tablet Hydromorp nellie HCl 4 MG Hydromorphone HCl 4 MG 10/21/2019 12:00:00 AM EDT active Hydromorphone HCl 4 MG eCW1 ([facility]) Hydromorphone Hydrochloride 4 MG Oral Tablet Hydromorp nellie HCl 4 MG Hydromorphone HCl 4 MG 10/21/2019 12:00:00 AM EDT suspended Hydromorphone HCl 4 MG eCW1 ([facility]) Hydromorphone Hydrochloride 4 MG Oral Tablet Hydromorp nellie HCl 4 MG Hydromorphone HCl 4 MG 10/21/2019 12:00:00 AM EDT active Hydromorphone HCl 4 MG eCW1 ([facility]) Hydromorphone Hydrochloride 4 MG Oral Tablet Hydromorp nellie HCl 4 MG Hydromorphone HCl 4 MG 10/21/2019 12:00:00 AM EDT suspended Hydromorphone HCl 4 MG eCW1 ([facility]) Hydromorphone Hydrochloride 4 MG Oral Tablet Hydromorp nellie HCl 4 MG Hydromorphone HCl 4 MG 10/21/2019 12:00:00 AM EDT active Hydromorphone HCl 4 MG eCW1 ([facility]) Estradiol 0.1 MG/ML Vaginal Cream Estradiol 0.1 MG/GM Estrad iol 0.1 MG/GM 10/15/2019 12:00:00 AM EDT active Estradiol 0.1 MG/GM eCW1 ([facility]) Estradiol 0.1 MG/ML Vaginal Cream Estradiol 0.1 MG/GM Estrad iol 0.1 MG/GM 10/15/2019 12:00:00 AM EDT active Estradiol 0.1 MG/GM eCW1 ([facility]) Estradiol 0.1 MG/ML Vaginal Cream Estradiol 0.1 MG/GM Estrad iol 0.1 MG/GM 10/15/2019 12:00:00 AM EDT active Estradiol 0.1 MG/GM eCW1 ([facility]) Estradiol 0.1 MG/ML Vaginal Cream Estradiol 0.1 MG/GM Estrad iol 0.1 MG/GM 10/15/2019 12:00:00 AM EDT active Estradiol 0.1 MG/GM eCW1 ([facility]) Estradiol 0.1 MG/ML Vaginal Cream Estradiol 0.1 MG/GM Estrad iol 0.1 MG/GM 10/15/2019 12:00:00 AM EDT active Estradiol 0.1 MG/GM eCW1 ([facility]) 12 % 10/15/2019 12:00:00 AM EDT cream 140 APPLY 1 APPLICATION TO FEET TWO TIMES A DAY EXTERNALLY APPLY 1 APPLICATION TO FEET TWO TIMES A DAY EXTERNALLY SOLD: 10/16/2019 [facility] Estradiol 0.1 MG/ML Vaginal Cream Estradiol 0.1 MG/GM Estrad iol 0.1 MG/GM 10/15/2019 12:00:00 AM EDT active Estradiol 0.1 MG/GM eCW1 ([facility]) Estradiol 0.1 MG/ML Vaginal Cream Estradiol 0.1 MG/GM Estrad iol 0.1 MG/GM 10/15/2019 12:00:00 AM EDT active Estradiol 0.1 MG/GM eCW1 ([facility]) Estradiol 0.1 MG/ML Vaginal Cream Estradiol 0.1 MG/GM Estrad iol 0.1 MG/GM 10/15/2019 12:00:00 AM EDT active Estradiol 0.1 MG/GM eCW1 ([facility]) Estradiol 0.1 MG/ML Vaginal Cream Estradiol 0.1 MG/GM Estrad iol 0.1 MG/GM 10/15/2019 12:00:00 AM EDT active Estradiol 0.1 MG/GM eCW1 ([facility]) 12 % 10/15/2019 12:00:00 AM EDT cream 140 APPLY 1 APPLICATION TO FEET TWO TIMES A DAY EXTERNALLY APPLY 1 APPLICATION TO FEET TWO TIMES A DAY EXTERNALLY SOLD: 11/12/2019 [facility] Estradiol 0.1 MG/ML Vaginal Cream Estradiol 0.1 MG/GM Estrad iol 0.1 MG/GM 10/15/2019 12:00:00 AM EDT active Estradiol 0.1 MG/GM eCW1 ([facility]) 12 % 10/15/2019 12:00:00 AM EDT cream 140 APPLY 1 APPLICATION TO FEET TWO TIMES A DAY EXTERNALLY APPLY 1 APPLICATION TO FEET TWO TIMES A DAY EXTERNALLY SOLD: 02/06/2020 [facility] Estradiol 0.1 MG/ML Vaginal Cream Estradiol 0.1 MG/GM Estrad iol 0.1 MG/GM 10/15/2019 12:00:00 AM EDT active Estradiol 0.1 MG/GM eCW1 ([facility]) Estradiol 0.1 MG/ML Vaginal Cream Estradiol 0.1 MG/GM Estrad iol 0.1 MG/GM 10/15/2019 12:00:00 AM EDT active Estradiol 0.1 MG/GM eCW1 ([facility]) Estradiol 0.1 MG/ML Vaginal Cream Estradiol 0.1 MG/GM Estrad iol 0.1 MG/GM 10/15/2019 12:00:00 AM EDT active Estradiol 0.1 MG/GM eCW1 ([facility]) Estradiol 0.1 MG/ML Vaginal Cream Estradiol 0.1 MG/GM Estrad iol 0.1 MG/GM 10/15/2019 12:00:00 AM EDT active Estradiol 0.1 MG/GM eCW1 ([facility]) Estradiol 0.1 MG/ML Vaginal Cream Estradiol 0.1 MG/GM Estrad iol 0.1 MG/GM 10/15/2019 12:00:00 AM EDT active Estradiol 0.1 MG/GM eCW1 ([facility]) Estradiol 0.1 MG/ML Vaginal Cream Estradiol 0.1 MG/GM Estrad iol 0.1 MG/GM 10/15/2019 12:00:00 AM EDT active Estradiol 0.1 MG/GM eCW1 ([facility]) Estradiol 0.1 MG/ML Vaginal Cream Estradiol 0.1 MG/GM Estrad iol 0.1 MG/GM 10/15/2019 12:00:00 AM EDT active Estradiol 0.1 MG/GM eCW1 ([facility]) Estradiol 0.1 MG/ML Vaginal Cream Estradiol 0.1 MG/GM Estrad iol 0.1 MG/GM 10/15/2019 12:00:00 AM EDT active Estradiol 0.1 MG/GM eCW1 ([facility]) Estradiol 0.1 MG/ML Vaginal Cream Estradiol 0.1 MG/GM Estrad iol 0.1 MG/GM 10/15/2019 12:00:00 AM EDT active Estradiol 0.1 MG/GM eCW1 ([facility]) Estradiol 0.1 MG/ML Vaginal Cream Estradiol 0.1 MG/GM Estrad iol 0.1 MG/GM 10/15/2019 12:00:00 AM EDT active Estradiol 0.1 MG/GM eCW1 ([facility]) Estradiol 0.1 MG/ML Vaginal Cream Estradiol 0.1 MG/GM Estrad iol 0.1 MG/GM 10/15/2019 12:00:00 AM EDT active Estradiol 0.1 MG/GM eCW1 ([facility]) Estradiol 0.1 MG/ML Vaginal Cream Estradiol 0.1 MG/GM Estrad iol 0.1 MG/GM 10/15/2019 12:00:00 AM EDT active Estradiol 0.1 MG/GM eCW1 ([facility]) Estradiol 0.1 MG/ML Vaginal Cream Estradiol 0.1 MG/GM Estrad iol 0.1 MG/GM 10/15/2019 12:00:00 AM EDT active Estradiol 0.1 MG/GM eCW1 ([facility]) Estradiol 0.1 MG/ML Vaginal Cream Estradiol 0.1 MG/GM Estrad iol 0.1 MG/GM 10/15/2019 12:00:00 AM EDT active Estradiol 0.1 MG/GM eCW1 ([facility]) 4 mg 10/15/2019 12:00:00 AM EDT tablet 56 TAKE ONE TABLET BY MOUTH EVERY 3 HOURS NEEDED MAXIMUM DAILY DOSE = 8 TABLETS TAKE ONE TABLET BY MOUTH EVERY 3 HOURS NEEDED MAXIMUM DAILY DOSE = 8 TABLETS SOLD: 10/16/2019 [facility] Estradiol 0.1 MG/ML Vaginal Cream Estradiol 0.1 MG/GM Estrad iol 0.1 MG/GM 10/15/2019 12:00:00 AM EDT active Estradiol 0.1 MG/GM eCW1 ([facility]) Estradiol 0.1 MG/ML Vaginal Cream Estradiol 0.1 MG/GM Estrad iol 0.1 MG/GM 10/15/2019 12:00:00 AM EDT active Estradiol 0.1 MG/GM eCW1 ([facility]) Estradiol 0.1 MG/ML Vaginal Cream Estradiol 0.1 MG/GM Estrad iol 0.1 MG/GM 10/15/2019 12:00:00 AM EDT active Estradiol 0.1 MG/GM eCW1 ([facility]) Estradiol 0.1 MG/ML Vaginal Cream Estradiol 0.1 MG/GM Estrad iol 0.1 MG/GM 10/15/2019 12:00:00 AM EDT active Estradiol 0.1 MG/GM eCW1 ([facility]) Estradiol 0.1 MG/ML Vaginal Cream Estradiol 0.1 MG/GM Estrad iol 0.1 MG/GM 10/15/2019 12:00:00 AM EDT active Estradiol 0.1 MG/GM eCW1 ([facility]) 12 % 10/15/2019 12:00:00 AM EDT cream 140 APPLY 1 APPLICATION TO FEET TWO TIMES A DAY EXTERNALLY APPLY 1 APPLICATION TO FEET TWO TIMES A DAY EXTERNALLY SOLD: 01/08/2020 [facility] Estradiol 0.1 MG/ML Vaginal Cream Estradiol 0.1 MG/GM Estrad iol 0.1 MG/GM 10/15/2019 12:00:00 AM EDT active Estradiol 0.1 MG/GM eCW1 ([facility]) Estradiol 0.1 MG/ML Vaginal Cream Estradiol 0.1 MG/GM Estrad iol 0.1 MG/GM 10/15/2019 12:00:00 AM EDT active Estradiol 0.1 MG/GM eCW1 ([facility]) Estradiol 0.1 MG/ML Vaginal Cream Estradiol 0.1 MG/GM Estrad iol 0.1 MG/GM 10/15/2019 12:00:00 AM EDT active Estradiol 0.1 MG/GM eCW1 ([facility]) Estradiol 0.1 MG/ML Vaginal Cream Estradiol 0.1 MG/GM Estrad iol 0.1 MG/GM 10/15/2019 12:00:00 AM EDT active Estradiol 0.1 MG/GM eCW1 ([facility]) Estradiol 0.1 MG/ML Vaginal Cream Estradiol 0.1 MG/GM Estrad iol 0.1 MG/GM 10/15/2019 12:00:00 AM EDT active Estradiol 0.1 MG/GM eCW1 ([facility]) Estradiol 0.1 MG/ML Vaginal Cream Estradiol 0.1 MG/GM Estrad iol 0.1 MG/GM 10/15/2019 12:00:00 AM EDT active Estradiol 0.1 MG/GM eCW1 ([facility]) Estradiol 0.1 MG/ML Vaginal Cream Estradiol 0.1 MG/GM Estrad iol 0.1 MG/GM 10/15/2019 12:00:00 AM EDT active Estradiol 0.1 MG/GM eCW1 ([facility]) Estradiol 0.1 MG/ML Vaginal Cream Estradiol 0.1 MG/GM Estrad iol 0.1 MG/GM 10/15/2019 12:00:00 AM EDT active Estradiol 0.1 MG/GM eCW1 ([facility]) Estradiol 0.1 MG/ML Vaginal Cream Estradiol 0.1 MG/GM Estrad iol 0.1 MG/GM 10/15/2019 12:00:00 AM EDT active Estradiol 0.1 MG/GM eCW1 ([facility]) Estradiol 0.1 MG/ML Vaginal Cream Estradiol 0.1 MG/GM Estrad iol 0.1 MG/GM 10/15/2019 12:00:00 AM EDT active Estradiol 0.1 MG/GM eCW1 ([facility]) Estradiol 0.1 MG/ML Vaginal Cream Estradiol 0.1 MG/GM Estrad iol 0.1 MG/GM 10/15/2019 12:00:00 AM EDT active Estradiol 0.1 MG/GM eCW1 ([facility]) 0.01 % (0.1 mg/gram) 10/15/2019 12:00:00 AM EDT cream 42 APPLY 1 GRAM DAILY VAGINAL DIRECTED APPLY 1 GRAM DAILY VAGINAL DIRECTED SOLD: 11/12/2019 [facility] 12 % 10/15/2019 12:00:00 AM EDT cream 140 APPLY 1 APPLICATION TO FEET TWO TIMES A DAY EXTERNALLY APPLY 1 APPLICATION TO FEET TWO TIMES A DAY EXTERNALLY SOLD: 12/10/2019 [facility] Estradiol 0.1 MG/ML Vaginal Cream Estradiol 0.1 MG/GM Estrad iol 0.1 MG/GM 10/15/2019 12:00:00 AM EDT active Estradiol 0.1 MG/GM eCW1 ([facility]) 0.01 % (0.1 mg/gram) 10/15/2019 12:00:00 AM EDT cream 42 APPLY 1 GRAM DAILY VAGINAL DIRECTED APPLY 1 GRAM DAILY VAGINAL DIRECTED SOLD: 10/16/2019 [facility] Estradiol 0.1 MG/ML Vaginal Cream Estradiol 0.1 MG/GM Estrad iol 0.1 MG/GM 10/15/2019 12:00:00 AM EDT active Estradiol 0.1 MG/GM eCW1 ([facility]) Estradiol 0.1 MG/ML Vaginal Cream Estradiol 0.1 MG/GM Estrad iol 0.1 MG/GM 10/15/2019 12:00:00 AM EDT active Estradiol 0.1 MG/GM eCW1 ([facility]) Estradiol 0.1 MG/ML Vaginal Cream Estradiol 0.1 MG/GM Estrad iol 0.1 MG/GM 10/15/2019 12:00:00 AM EDT active Estradiol 0.1 MG/GM eCW1 ([facility]) Estradiol 0.1 MG/ML Vaginal Cream Estradiol 0.1 MG/GM Estrad iol 0.1 MG/GM 10/15/2019 12:00:00 AM EDT active Estradiol 0.1 MG/GM eCW1 ([facility]) Estradiol 0.1 MG/ML Vaginal Cream Estradiol 0.1 MG/GM Estrad iol 0.1 MG/GM 10/15/2019 12:00:00 AM EDT active Estradiol 0.1 MG/GM eCW1 ([facility]) Estradiol 0.1 MG/ML Vaginal Cream Estradiol 0.1 MG/GM Estrad iol 0.1 MG/GM 10/15/2019 12:00:00 AM EDT active Estradiol 0.1 MG/GM eCW1 ([facility]) Estradiol 0.1 MG/ML Vaginal Cream Estradiol 0.1 MG/GM Estrad iol 0.1 MG/GM 10/15/2019 12:00:00 AM EDT active Estradiol 0.1 MG/GM eCW1 ([facility]) Estradiol 0.1 MG/ML Vaginal Cream Estradiol 0.1 MG/GM Estrad iol 0.1 MG/GM 10/15/2019 12:00:00 AM EDT active Estradiol 0.1 MG/GM eCW1 ([facility]) Estradiol 0.1 MG/ML Vaginal Cream Estradiol 0.1 MG/GM Estrad iol 0.1 MG/GM 10/15/2019 12:00:00 AM EDT active Estradiol 0.1 MG/GM eCW1 ([facility]) Estradiol 0.1 MG/ML Vaginal Cream Estradiol 0.1 MG/GM Estrad iol 0.1 MG/GM 10/15/2019 12:00:00 AM EDT active Estradiol 0.1 MG/GM eCW1 ([facility]) Estradiol 0.1 MG/ML Vaginal Cream Estradiol 0.1 MG/GM Estrad iol 0.1 MG/GM 10/15/2019 12:00:00 AM EDT active Estradiol 0.1 MG/GM eCW1 ([facility]) Estradiol 0.1 MG/ML Vaginal Cream Estradiol 0.1 MG/GM Estrad iol 0.1 MG/GM 10/15/2019 12:00:00 AM EDT active Estradiol 0.1 MG/GM eCW1 ([facility]) 12 % 10/15/2019 12:00:00 AM EDT cream 140 APPLY 1 APPLICATION TO FEET TWO TIMES A DAY EXTERNALLY APPLY 1 APPLICATION TO FEET TWO TIMES A DAY EXTERNALLY SOLD: 03/04/2020 [facility] Estradiol 0.1 MG/ML Vaginal Cream Estradiol 0.1 MG/GM Estrad iol 0.1 MG/GM 10/15/2019 12:00:00 AM EDT active Estradiol 0.1 MG/GM eCW1 ([facility]) ALCOHOL ANTISEPTIC PADS 10/08/2019 12:00:00 AM EDT [...] TIMES A DAY DIRECTED NEEDED SOLD: 01/26/2020 [facility] Estrogens, Conjugated ([facility]) 0.625 MG/ML Vaginal Cream [Premarin] Premarin 0.625 MG/GM Premarin 0.625 MG/GM 10/01/2019 12:00:00 AM EDT active Premarin 0.625 MG/GM eCW1 ([facility]) 4 mg 10/01/2019 12:00:00 AM EDT tablet 56 TAKE 1 TABLET BY MOUTH EVERY 3 HOURS NEEDED MAXIMUM DAILY DOSE = 8 TABLETS TAKE 1 TABLET BY MOUTH EVERY 3 HOURS NEEDED MAXIMUM DAILY DOSE = 8 TABLETS SOLD: 10/01/2019 [facility] Estrogens, Conjugated ([facility]) 0.625 MG/ML Vaginal Cream [Premarin] Premarin 0.625 MG/GM Premarin 0.625 MG/GM 10/01/2019 12:00:00 AM EDT active Premarin 0.625 MG/GM eCW1 ([facility]) Estrogens, Conjugated ([facility]) 0.625 MG/ML Vaginal Cream [Premarin] Premarin 0.625 MG/GM Premarin 0.625 MG/GM 10/01/2019 12:00:00 AM EDT active Premarin 0.625 MG/GM eCW1 ([facility]) Estrogens, Conjugated ([facility]) 0.625 MG/ML Vaginal Cream [Premarin] Premarin 0.625 MG/GM Premarin 0.625 MG/GM 10/01/2019 12:00:00 AM EDT active Premarin 0.625 MG/GM eCW1 ([facility]) 4 mg/2 mL 09/28/2019 12:00:00 AM EDT [...] {tablets} suspended Hydromorphone HCl 4 MG eCW1 ([facility]) Hydromorphone Hydrochloride 4 MG Oral Tablet Hydromorp nellie HCl 4 MG Hydromorphone HCl 4 MG 09/17/2019 12:00:00 AM EDT 1.0 {tablets} active Hydromorphone HCl 4 MG eCW1 ([facility]) 31 gauge x 5/16" 09/17/2019 12:00:00 AM EDT needle 30 USE DIRECTED DAILY USE DIRECTED DAILY SOLD: 01/07/2020 [facility] Hydromorphone Hydrochloride 4 MG Oral Tablet Hydromorp nellie HCl 4 MG Hydromorphone HCl 4 MG 09/17/2019 12:00:00 AM EDT 1.0 {tablets} active Hydromorphone HCl 4 MG eCW1 ([facility]) 1 gram 09/17/2019 12:00:00 AM EDT tablet [...] {tablets} active Hydromorphone HCl 4 MG eCW1 ([facility]) 31 gauge x 5/16" 09/17/2019 12:00:00 AM EDT needle 30 USE DIRECTED DAILY USE DIRECTED DAILY SOLD: 12/10/2019 [facility] Hydromorphone Hydrochloride 4 MG Oral Tablet Hydromorp nellie HCl 4 MG Hydromorphone HCl 4 MG 09/17/2019 12:00:00 AM EDT 1.0 {tablets} active Hydromorphone HCl 4 MG eCW1 ([facility]) 1 gram 09/17/2019 12:00:00 AM EDT tablet 60 TAKE ONE TABLET BY MOUTH TWICE A DAY TAKE ONE TABLET BY MOUTH TWICE A DAY SOLD: 09/17/2019 [facility] Hydromorphone Hydrochloride 4 MG Oral Tablet Hydromorp nellie HCl 4 MG Hydromorphone HCl 4 MG 09/17/2019 12:00:00 AM EDT 1.0 {tablets} active Hydromorphone HCl 4 MG eCW1 ([facility]) 90 mcg/actuation 09/17/2019 12:00:00 AM EDT HFA aerosol inha ler 18 INHALE TWO PUFFS BY MOUTH EVERY 4 HOURS NEEDED INHALE TWO PUFFS BY MOUTH EVERY 4 HOURS NEEDED SOLD: 09/17/2019 [facility] Hydromorphone Hydrochloride 4 MG Oral Tablet Hydromorp nellie HCl 4 MG Hydromorphone HCl 4 MG 09/17/2019 12:00:00 AM EDT 1.0 {tablets} suspended Hydromorphone HCl 4 MG eCW1 ([facility]) Hydromorphone Hydrochloride 4 MG Oral Tablet Hydromorp nellie HCl 4 MG Hydromorphone HCl 4 MG 09/17/2019 12:00:00 AM EDT 1.0 {tablets} active Hydromorphone HCl 4 MG eCW1 ([facility]) 31 gauge x 5/16" 09/17/2019 12:00:00 AM EDT needle 30 USE DIRECTED DAILY USE DIRECTED DAILY SOLD: 10/16/2019 [facility] Hydromorphone Hydrochloride 4 MG Oral Tablet Hydromorp nellie HCl 4 MG Hydromorphone HCl 4 MG 09/17/2019 12:00:00 AM EDT 1.0 {tablets} suspended Hydromorphone HCl 4 MG eCW1 ([facility]) 4 mg 09/17/2019 12:00:00 AM EDT tablet [...] {tablets} active Hydromorphone HCl 4 MG eCW1 ([facility]) 1 gram 09/17/2019 12:00:00 AM EDT tablet 60 TAKE ONE TABLET BY MOUTH TWICE A DAY TAKE ONE TABLET BY MOUTH TWICE A DAY SOLD: 12/10/2019 [facility] Hydromorphone Hydrochloride 4 MG Oral Tablet Hydromorp nellie HCl 4 MG Hydromorphone HCl 4 MG 09/17/2019 12:00:00 AM EDT 1.0 {tablets} active Hydromorphone HCl 4 MG eCW1 ([facility]) 31 gauge x 5/16" 09/17/2019 12:00:00 AM [...] {tablets} active Hydromorphone HCl 4 MG eCW1 ([facility]) Metronidazole 500 MG Oral Tablet Metronidazole 500 MG 2019 12:00:00 AM EDT 1.0 {tablet} active Metronidazo le 500 MG eCW1 ([facility]) Metronidazole 500 MG Oral Tablet Metronidazole 500 MG 2019 12:00:00 AM EDT 1.0 {tablet} active Metronidazo le 500 MG eCW1 ([facility]) Metronidazole 500 MG Oral Tablet Metronidazole 500 MG 2019 12:00:00 AM EDT active 1 tablet eCW1 ([facility]) Metronidazole 500 MG Oral Tablet Metronidazole 500 MG 2019 12:00:00 AM EDT 1.0 {tablet} active Metronidazo le 500 MG eCW1 ([facility]) 4 mg 09/10/2019 12:00:00 AM EDT tablet 90 TAKE TWO TABLETS BY MOUTH EVERY 3 HOURS NEEDED MAXIMUM DAILY DOSE = 16 TABLETS TAKE TWO TABLETS BY MOUTH EVERY 3 HOURS NEEDED MAXIMUM DAILY DOSE = 16 TABLETS SOLD: 09/10/2019 [facility] Metronidazole 500 MG Oral Tablet Metronidazole 500 MG 2019 12:00:00 AM EDT 1.0 {tablet} active Metronidazo le 500 MG eCW1 ([facility]) 500 mg 09/10/2019 12:00:00 AM EDT tablet 14 TAKE ONE TABLET BY MOUTH TWICE A DAY FOR 7 DAYS TAKE ONE TABLET BY MOUTH TWICE A DAY FOR 7 DAYS SOLD: 09/10/2019 [facility] Metronidazole 500 MG Oral Tablet Metronidazole 500 MG 2019 12:00:00 AM EDT 1.0 {tablet} active Metronidazo le 500 MG eCW1 ([facility]) Metronidazole 500 MG Oral Tablet Metronidazole 500 MG 2019 12:00:00 AM EDT 1.0 {tablet} suspended Metronid azole 500 MG eCW1 ([facility]) Metronidazole 500 MG Oral Tablet Metronidazole 500 MG 2019 12:00:00 AM EDT 1.0 {tablet} active Metronidazo le 500 MG eCW1 ([facility]) Metronidazole 500 MG Oral Tablet Metronidazole 500 MG 2019 12:00:00 AM EDT 1.0 {tablet} active Metronidazo le 500 MG eCW1 ([facility]) Metronidazole 500 MG Oral Tablet Metronidazole 500 MG 2019 12:00:00 AM EDT 1.0 {tablet} suspended Metronid azole 500 MG eCW1 ([facility]) Metronidazole 500 MG Oral Tablet Metronidazole 500 MG 2019 12:00:00 AM EDT 1.0 {tablet} suspended Metronid azole 500 MG eCW1 ([facility]) Metronidazole 500 MG Oral Tablet Metronidazole 500 MG 2019 12:00:00 AM EDT 1.0 {tablet} suspended Metronid azole 500 MG eCW1 ([facility]) Metronidazole 500 MG Oral Tablet Metronidazole 500 MG 2019 12:00:00 AM EDT 1.0 {tablet} active Metronidazo le 500 MG eCW1 ([facility]) Metronidazole 500 MG Oral Tablet Metronidazole 500 MG 2019 12:00:00 AM EDT 1.0 {tablet} suspended Metronid azole 500 MG eCW1 ([facility]) Hydromorphone Hydrochloride 4 MG Oral Tablet Hydromorp nellie HCl 4 MG Hydromorphone HCl 4 MG 09/09/2019 12:00:00 AM EDT active 2 tablets eCW1 ([facility]) Hydromorphone Hydrochloride 4 MG Oral Tablet Hydromorp nellie HCl 4 MG Hydromorphone HCl 4 MG 09/09/2019 12:00:00 AM EDT active 2 tablets eCW1 ([facility]) Hydromorphone Hydrochloride 4 MG Oral Tablet Hydromorp nellie HCl 4 MG Hydromorphone HCl 4 MG 09/09/2019 12:00:00 AM EDT 2.0 {tablets} active Hydromorphone HCl 4 MG eCW1 ([facility]) Nebulizer/Tubing/Mouthpiece - Nebulizer/Tubing/Mouthpiece - 09/03/2019 12:00:00 AM EDT active Nebulizer/Tubing/ Mouthpiece - eCW1 ([facility]) Nebulizer/Tubing/Mouthpiece - Nebulizer/Tubing/Mouthpiece - 09/03/2019 12:00:00 AM EDT active Nebulizer/Tubing/ Mouthpiece - eCW1 ([facility]) Nebulizer Compressor UNK 09/03/2019 12:00:00 AM EDT active Nebulizer Compressor eCW1 ([facility]) Nebulizer Compressor UNK 09/03/2019 12:00:00 AM EDT active Nebulizer Compressor eCW1 ([facility]) Nebulizer/Tubing/Mouthpiece - Nebulizer/Tubing/Mouthpiece - 09/03/2019 12:00:00 AM EDT active Nebulizer/Tubing/ Mouthpiece - eCW1 ([facility]) Nebulizer Compressor UNK 09/03/2019 12:00:00 AM EDT active Nebulizer Compressor eCW1 ([facility]) 10 mg 09/03/2019 12:00:00 AM EDT capsule 120 TAKE ONE CAPSULE BY MOUTH FOUR TIMES A DAY TAKE ONE CAPSULE BY MOUTH FOUR TIMES A DAY SOLD: 09/30/2019 [facility] Nebulizer/Tubing/Mouthpiece - Nebulizer/Tubing/Mouthpiece - 09/03/2019 12:00:00 AM EDT active Nebulizer/Tubing/ Mouthpiece - eCW1 ([facility]) 10 mg 09/03/2019 12:00:00 AM EDT tablet 90 TAKE ONE TABLET BY MOUTH THREE TIMES A DAY TAKE ONE TABLET BY MOUTH THREE TIMES A DAY SOLD: 09/03/2019 [facility] Nebulizer Compressor UNK 09/03/2019 12:00:00 AM EDT active Nebulizer Compressor eCW1 ([facility]) Nebulizer Compressor UNK 09/03/2019 12:00:00 AM EDT active Nebulizer Compressor eCW1 ([facility]) Nebulizer/Tubing/Mouthpiece - Nebulizer/Tubing/Mouthpiece - 09/03/2019 12:00:00 AM EDT active Nebulizer/Tubing/ Mouthpiece - eCW1 ([facility]) Nebulizer/Tubing/Mouthpiece - Nebulizer/Tubing/Mouthpiece - 09/03/2019 12:00:00 AM EDT active Nebulizer/Tubing/ Mouthpiece - eCW1 ([facility]) Nebulizer/Tubing/Mouthpiece - Nebulizer/Tubing/Mouthpiece - 09/03/2019 12:00:00 AM EDT active Nebulizer/Tubing/ Mouthpiece - eCW1 ([facility]) Nebulizer/Tubing/Mouthpiece - Nebulizer/Tubing/Mouthpiece - 09/03/2019 12:00:00 AM EDT active Nebulizer/Tubing/ Mouthpiece - eCW1 ([facility]) Nebulizer/Tubing/Mouthpiece - Nebulizer/Tubing/Mouthpiece - 09/03/2019 12:00:00 AM EDT active Nebulizer/Tubing/ Mouthpiece - eCW1 ([facility]) Nebulizer Compressor UNK 09/03/2019 12:00:00 AM EDT active Nebulizer Compressor eCW1 ([facility]) Nebulizer Compressor UNK 09/03/2019 12:00:00 AM EDT active Nebulizer Compressor eCW1 ([facility]) Nebulizer/Tubing/Mouthpiece - Nebulizer/Tubing/Mouthpiece - 09/03/2019 12:00:00 AM EDT active Nebulizer/Tubing/ Mouthpiece - eCW1 ([facility]) Nebulizer Compressor UNK 09/03/2019 12:00:00 AM EDT active Nebulizer Compressor eCW1 ([facility]) Nebulizer/Tubing/Mouthpiece - Nebulizer/Tubing/Mouthpiece - 09/03/2019 12:00:00 AM EDT active Nebulizer/Tubing/ Mouthpiece - eCW1 ([facility]) Nebulizer/Tubing/Mouthpiece - Nebulizer/Tubing/Mouthpiece - 09/03/2019 12:00:00 AM EDT active Nebulizer/Tubing/ Mouthpiece - eCW1 ([facility]) Nebulizer Compressor UNK 09/03/2019 12:00:00 AM EDT active Nebulizer Compressor eCW1 ([facility]) Nebulizer Compressor UNK 09/03/2019 12:00:00 AM EDT active Nebulizer Compressor eCW1 ([facility]) Nebulizer Compressor UNK 09/03/2019 12:00:00 AM EDT active Nebulizer Compressor eCW1 ([facility]) Nebulizer/Tubing/Mouthpiece - Nebulizer/Tubing/Mouthpiece - 09/03/2019 12:00:00 AM EDT active Nebulizer/Tubing/ Mouthpiece - eCW1 ([facility]) Nebulizer/Tubing/Mouthpiece - Nebulizer/Tubing/Mouthpiece - 09/03/2019 12:00:00 AM EDT active Nebulizer/Tubing/ Mouthpiece - eCW1 ([facility]) Nebulizer Compressor UNK 09/03/2019 12:00:00 AM EDT active Nebulizer Compressor eCW1 ([facility]) Nebulizer/Tubing/Mouthpiece - Nebulizer/Tubing/Mouthpiece - 09/03/2019 12:00:00 AM EDT active Nebulizer/Tubing/ Mouthpiece - eCW1 ([facility]) Nebulizer Compressor UNK 09/03/2019 12:00:00 AM EDT active Nebulizer Compressor eCW1 ([facility]) Nebulizer Compressor UNK 09/03/2019 12:00:00 AM EDT active Nebulizer Compressor eCW1 ([facility]) Nebulizer/Tubing/Mouthpiece - Nebulizer/Tubing/Mouthpiece - 09/03/2019 12:00:00 AM EDT active Nebulizer/Tubing/ Mouthpiece - eCW1 ([facility]) 10 mg 09/03/2019 12:00:00 AM EDT tablet 90 TAKE ONE TABLET BY MOUTH THREE TIMES A DAY TAKE ONE TABLET BY MOUTH THREE TIMES A DAY SOLD: 01/13/2020 [facility] Nebulizer Compressor UNK 09/03/2019 12:00:00 AM EDT active Nebulizer Compressor eCW1 ([facility]) 10 mg 09/03/2019 12:00:00 AM EDT tablet 90 TAKE ONE TABLET BY MOUTH THREE TIMES A DAY TAKE ONE TABLET BY MOUTH THREE TIMES A DAY SOLD: 12/17/2019 [facility] Nebulizer/Tubing/Mouthpiece - Nebulizer/Tubing/Mouthpiece - 09/03/2019 12:00:00 AM EDT active Nebulizer/Tubing/ Mouthpiece - eCW1 ([facility]) Nebulizer Compressor UNK 09/03/2019 12:00:00 AM EDT active Nebulizer Compressor eCW1 ([facility]) Nebulizer/Tubing/Mouthpiece - Nebulizer/Tubing/Mouthpiece - 09/03/2019 12:00:00 AM EDT active Nebulizer/Tubing/ Mouthpiece - eCW1 ([facility]) Nebulizer/Tubing/Mouthpiece - Nebulizer/Tubing/Mouthpiece - 09/03/2019 12:00:00 AM EDT active Nebulizer/Tubing/ Mouthpiece - eCW1 ([facility]) Nebulizer/Tubing/Mouthpiece - Nebulizer/Tubing/Mouthpiece - 09/03/2019 12:00:00 AM EDT active Nebulizer/Tubing/ Mouthpiece - eCW1 ([facility]) Nebulizer Compressor UNK 09/03/2019 12:00:00 AM EDT active Nebulizer Compressor eCW1 ([facility]) Nebulizer/Tubing/Mouthpiece - Nebulizer/Tubing/Mouthpiece - 09/03/2019 12:00:00 AM EDT active Nebulizer/Tubing/ Mouthpiece - eCW1 ([facility]) Nebulizer Compressor UNK 09/03/2019 12:00:00 AM EDT active Nebulizer Compressor eCW1 ([facility]) Nebulizer/Tubing/Mouthpiece - Nebulizer/Tubing/Mouthpiece - 09/03/2019 12:00:00 AM EDT active Nebulizer/Tubing/ Mouthpiece - eCW1 ([facility]) Nebulizer/Tubing/Mouthpiece - Nebulizer/Tubing/Mouthpiece - 09/03/2019 12:00:00 AM EDT active Nebulizer/Tubing/ Mouthpiece - eCW1 ([facility]) Nebulizer/Tubing/Mouthpiece - Nebulizer/Tubing/Mouthpiece - 09/03/2019 12:00:00 AM EDT active Nebulizer/Tubing/ Mouthpiece - eCW1 ([facility]) Nebulizer Compressor UNK 09/03/2019 12:00:00 AM EDT active Nebulizer Compressor eCW1 ([facility]) Nebulizer Compressor UNK 09/03/2019 12:00:00 AM EDT active Nebulizer Compressor eCW1 ([facility]) 10 mg 09/03/2019 12:00:00 AM EDT capsule 120 TAKE ONE CAPSULE BY MOUTH FOUR TIMES A DAY TAKE ONE CAPSULE BY MOUTH FOUR TIMES A DAY SOLD: 09/03/2019 [facility] Nebulizer/Tubing/Mouthpiece - Nebulizer/Tubing/Mouthpiece - 09/03/2019 12:00:00 AM EDT active Nebulizer/Tubing/ Mouthpiece - eCW1 ([facility]) Nebulizer Compressor UNK 09/03/2019 12:00:00 AM EDT active Nebulizer Compressor eCW1 ([facility]) Nebulizer/Tubing/Mouthpiece - Nebulizer/Tubing/Mouthpiece - 09/03/2019 12:00:00 AM EDT active Nebulizer/Tubing/ Mouthpiece - eCW1 ([facility]) Nebulizer Compressor UNK 09/03/2019 12:00:00 AM EDT active Nebulizer Compressor eCW1 ([facility]) Nebulizer Compressor UNK 09/03/2019 12:00:00 AM EDT active Nebulizer Compressor eCW1 ([facility]) Nebulizer/Tubing/Mouthpiece - Nebulizer/Tubing/Mouthpiece - 09/03/2019 12:00:00 AM EDT active Nebulizer/Tubing/ Mouthpiece - eCW1 ([facility]) Nebulizer/Tubing/Mouthpiece - Nebulizer/Tubing/Mouthpiece - 09/03/2019 12:00:00 AM EDT active Nebulizer/Tubing/ Mouthpiece - eCW1 ([facility]) Nebulizer Compressor UNK 09/03/2019 12:00:00 AM EDT active Nebulizer Compressor eCW1 ([facility]) Nebulizer/Tubing/Mouthpiece - Nebulizer/Tubing/Mouthpiece - 09/03/2019 12:00:00 AM EDT active Nebulizer/Tubing/ Mouthpiece - eCW1 ([facility]) Nebulizer/Tubing/Mouthpiece - Nebulizer/Tubing/Mouthpiece - 09/03/2019 12:00:00 AM EDT active Nebulizer/Tubing/ Mouthpiece - eCW1 ([facility]) Nebulizer Compressor UNK 09/03/2019 12:00:00 AM EDT active Nebulizer Compressor eCW1 ([facility]) NEBULIZER AND COMPRESSOR 09/03/2019 12:00:00 AM EDT device 1 USE DIRECTED EVERY 4 HOURS NEEDED USE DIRECTED EVERY 4 HOURS NEEDED SOLD: 09/03/2019 [facility] Nebulizer Compressor UNK 09/03/2019 12:00:00 AM EDT active Nebulizer Compressor eCW1 ([facility]) Nebulizer/Tubing/Mouthpiece - Nebulizer/Tubing/Mouthpiece - 09/03/2019 12:00:00 AM EDT active Nebulizer/Tubing/ Mouthpiece - eCW1 ([facility]) Nebulizer Compressor UNK 09/03/2019 12:00:00 AM EDT active Nebulizer Compressor eCW1 ([facility]) Nebulizer/Tubing/Mouthpiece - Nebulizer/Tubing/Mouthpiece - 09/03/2019 12:00:00 AM EDT active Nebulizer/Tubing/ Mouthpiece - eCW1 ([facility]) Nebulizer/Tubing/Mouthpiece - Nebulizer/Tubing/Mouthpiece - 09/03/2019 12:00:00 AM EDT active Nebulizer/Tubing/ Mouthpiece - eCW1 ([facility]) Nebulizer Compressor UNK 09/03/2019 12:00:00 AM EDT active Nebulizer Compressor eCW1 ([facility]) Nebulizer/Tubing/Mouthpiece - Nebulizer/Tubing/Mouthpiece - 09/03/2019 12:00:00 AM EDT active Nebulizer/Tubing/ Mouthpiece - eCW1 ([facility]) 10 mg 09/03/2019 12:00:00 AM EDT capsule 120 TAKE ONE CAPSULE BY MOUTH FOUR TIMES A DAY TAKE ONE CAPSULE BY MOUTH FOUR TIMES A DAY SOLD: 01/19/2020 [facility] Nebulizer Compressor UNK 09/03/2019 12:00:00 AM EDT active Nebulizer Compressor eCW1 ([facility]) Nebulizer/Tubing/Mouthpiece - Nebulizer/Tubing/Mouthpiece - 09/03/2019 12:00:00 AM EDT active Nebulizer/Tubing/ Mouthpiece - eCW1 ([facility]) Nebulizer Compressor UNK 09/03/2019 12:00:00 AM EDT active Nebulizer Compressor eCW1 ([facility]) Nebulizer Compressor UNK 09/03/2019 12:00:00 AM EDT active Nebulizer Compressor eCW1 ([facility]) Nebulizer Compressor UNK 09/03/2019 12:00:00 AM EDT active Nebulizer Compressor eCW1 ([facility]) . UNIT 09/03/2019 12:00:00 AM EDT Aerosol 1 USE DIRECTED EVERY 4 HOURS NEEDED USE DIRECTED EVERY 4 HOURS NEEDED SOLD: 09/03/2019 [facility] Nebulizer/Tubing/Mouthpiece - Nebulizer/Tubing/Mouthpiece - 09/03/2019 12:00:00 AM EDT active Nebulizer/Tubing/ Mouthpiece - eCW1 ([facility]) Nebulizer/Tubing/Mouthpiece - Nebulizer/Tubing/Mouthpiece - 09/03/2019 12:00:00 AM EDT active Nebulizer/Tubing/ Mouthpiece - eCW1 ([facility]) Nebulizer Compressor UNK 09/03/2019 12:00:00 AM EDT active Nebulizer Compressor eCW1 ([facility]) Nebulizer Compressor UNK 09/03/2019 12:00:00 AM EDT active Nebulizer Compressor eCW1 ([facility]) 10 mg 09/03/2019 12:00:00 AM EDT tablet 90 TAKE ONE TABLET BY MOUTH THREE TIMES A DAY TAKE ONE TABLET BY MOUTH THREE TIMES A DAY SOLD: 11/19/2019 [facility] Nebulizer/Tubing/Mouthpiece - Nebulizer/Tubing/Mouthpiece - 09/03/2019 12:00:00 AM EDT active Nebulizer/Tubing/ Mouthpiece - eCW1 ([facility]) Nebulizer Compressor UNK 09/03/2019 12:00:00 AM EDT active Nebulizer Compressor eCW1 ([facility]) Nebulizer Compressor UNK 09/03/2019 12:00:00 AM EDT active Nebulizer Compressor eCW1 ([facility]) Nebulizer/Tubing/Mouthpiece - Nebulizer/Tubing/Mouthpiece - 09/03/2019 12:00:00 AM EDT active Nebulizer/Tubing/ Mouthpiece - eCW1 ([facility]) Nebulizer Compressor UNK 09/03/2019 12:00:00 AM EDT active Nebulizer Compressor eCW1 ([facility]) Nebulizer Compressor UNK 09/03/2019 12:00:00 AM EDT active Nebulizer Compressor eCW1 ([facility]) Nebulizer/Tubing/Mouthpiece - Nebulizer/Tubing/Mouthpiece - 09/03/2019 12:00:00 AM EDT active Nebulizer/Tubing/ Mouthpiece - eCW1 ([facility]) Nebulizer/Tubing/Mouthpiece - Nebulizer/Tubing/Mouthpiece - 09/03/2019 12:00:00 AM EDT active Nebulizer/Tubing/ Mouthpiece - eCW1 ([facility]) Nebulizer/Tubing/Mouthpiece - Nebulizer/Tubing/Mouthpiece - 09/03/2019 12:00:00 AM EDT active Nebulizer/Tubing/ Mouthpiece - eCW1 ([facility]) Nebulizer/Tubing/Mouthpiece - Nebulizer/Tubing/Mouthpiece - 09/03/2019 12:00:00 AM EDT active Nebulizer/Tubing/ Mouthpiece - eCW1 ([facility]) Nebulizer Compressor UNK 09/03/2019 12:00:00 AM EDT active Nebulizer Compressor eCW1 ([facility]) Nebulizer/Tubing/Mouthpiece - Nebulizer/Tubing/Mouthpiece - 09/03/2019 12:00:00 AM EDT active Nebulizer/Tubing/ Mouthpiece - eCW1 ([facility]) Nebulizer Compressor UNK 09/03/2019 12:00:00 AM EDT active Nebulizer Compressor eCW1 ([facility]) Nebulizer/Tubing/Mouthpiece - Nebulizer/Tubing/Mouthpiece - 09/03/2019 12:00:00 AM EDT active Nebulizer/Tubing/ Mouthpiece - eCW1 ([facility]) Nebulizer Compressor UNK 09/03/2019 12:00:00 AM EDT active Nebulizer Compressor eCW1 ([facility]) Nebulizer Compressor UNK 09/03/2019 12:00:00 AM EDT active Nebulizer Compressor eCW1 ([facility]) Nebulizer Compressor UNK 09/03/2019 12:00:00 AM EDT active Nebulizer Compressor eCW1 ([facility]) Nebulizer Compressor UNK 09/03/2019 12:00:00 AM EDT active Nebulizer Compressor eCW1 ([facility]) Nebulizer Compressor UNK 09/03/2019 12:00:00 AM EDT active Nebulizer Compressor eCW1 ([facility]) Nebulizer/Tubing/Mouthpiece - Nebulizer/Tubing/Mouthpiece - 09/03/2019 12:00:00 AM EDT active Nebulizer/Tubing/ Mouthpiece - eCW1 ([facility]) Nebulizer Compressor UNK 09/03/2019 12:00:00 AM EDT active Nebulizer Compressor eCW1 ([facility]) Nebulizer/Tubing/Mouthpiece - Nebulizer/Tubing/Mouthpiece - 09/03/2019 12:00:00 AM EDT active Nebulizer/Tubing/ Mouthpiece - eCW1 ([facility]) Nebulizer/Tubing/Mouthpiece - Nebulizer/Tubing/Mouthpiece - 09/03/2019 12:00:00 AM EDT active Nebulizer/Tubing/ Mouthpiece - eCW1 ([facility]) Nebulizer Compressor UNK 09/03/2019 12:00:00 AM EDT active Nebulizer Compressor eCW1 ([facility]) Nebulizer/Tubing/Mouthpiece - Nebulizer/Tubing/Mouthpiece - 09/03/2019 12:00:00 AM EDT active Nebulizer/Tubing/ Mouthpiece - eCW1 ([facility]) Nebulizer Compressor UNK 09/03/2019 12:00:00 AM EDT active Nebulizer Compressor eCW1 ([facility]) Nebulizer Compressor UNK 09/03/2019 12:00:00 AM EDT active Nebulizer Compressor eCW1 ([facility]) Nebulizer/Tubing/Mouthpiece - Nebulizer/Tubing/Mouthpiece - 09/03/2019 12:00:00 AM EDT active Nebulizer/Tubing/ Mouthpiece - eCW1 ([facility]) 10 mg 09/03/2019 12:00:00 AM EDT capsule 120 TAKE ONE CAPSULE BY MOUTH FOUR TIMES A DAY TAKE ONE CAPSULE BY MOUTH FOUR TIMES A DAY SOLD: 12/24/2019 [facility] Nebulizer Compressor UNK 09/03/2019 12:00:00 AM EDT active Nebulizer Compressor eCW1 ([facility]) 10 mg 09/03/2019 12:00:00 AM EDT tablet 90 TAKE ONE TABLET BY MOUTH THREE TIMES A DAY TAKE ONE TABLET BY MOUTH THREE TIMES A DAY SOLD: 10/25/2019 [facility] Nebulizer/Tubing/Mouthpiece - Nebulizer/Tubing/Mouthpiece - 09/03/2019 12:00:00 AM EDT active Nebulizer/Tubing/ Mouthpiece - eCW1 ([facility]) Nebulizer/Tubing/Mouthpiece - Nebulizer/Tubing/Mouthpiece - 09/03/2019 12:00:00 AM EDT active Nebulizer/Tubing/ Mouthpiece - eCW1 ([facility]) Nebulizer Compressor UNK 09/03/2019 12:00:00 AM EDT active 1 eCW1 ([facility]) Nebulizer Compressor UNK 09/03/2019 12:00:00 AM EDT active Nebulizer Compressor eCW1 ([facility]) Nebulizer Compressor UNK 09/03/2019 12:00:00 AM EDT active Nebulizer Compressor eCW1 ([facility]) Nebulizer/Tubing/Mouthpiece - Nebulizer/Tubing/Mouthpiece - 09/03/2019 12:00:00 AM EDT active Nebulizer/Tubing/ Mouthpiece - eCW1 ([facility]) 10 mg 09/03/2019 12:00:00 AM EDT capsule 120 TAKE ONE CAPSULE BY MOUTH FOUR TIMES A DAY TAKE ONE CAPSULE BY MOUTH FOUR TIMES A DAY SOLD: 10/28/2019 [facility] Nebulizer Compressor UNK 09/03/2019 12:00:00 AM EDT active Nebulizer Compressor eCW1 ([facility]) Nebulizer Compressor UNK 09/03/2019 12:00:00 AM EDT active Nebulizer Compressor eCW1 ([facility]) Nebulizer Compressor UNK 09/03/2019 12:00:00 AM EDT active Nebulizer Compressor eCW1 ([facility]) Nebulizer Compressor UNK 09/03/2019 12:00:00 AM EDT active Nebulizer Compressor eCW1 ([facility]) Nebulizer/Tubing/Mouthpiece - Nebulizer/Tubing/Mouthpiece - 09/03/2019 12:00:00 AM EDT active Nebulizer/Tubing/ Mouthpiece - eCW1 ([facility]) Nebulizer/Tubing/Mouthpiece - Nebulizer/Tubing/Mouthpiece - 09/03/2019 12:00:00 AM EDT active Nebulizer/Tubing/ Mouthpiece - eCW1 ([facility]) Nebulizer Compressor UNK 09/03/2019 12:00:00 AM EDT active Nebulizer Compressor eCW1 ([facility]) Nebulizer Compressor UNK 09/03/2019 12:00:00 AM EDT active Nebulizer Compressor eCW1 ([facility]) Nebulizer Compressor UNK 09/03/2019 12:00:00 AM EDT active Nebulizer Compressor eCW1 ([facility]) Nebulizer Compressor UNK 09/03/2019 12:00:00 AM EDT active Nebulizer Compressor eCW1 ([facility]) Nebulizer/Tubing/Mouthpiece - Nebulizer/Tubing/Mouthpiece - 09/03/2019 12:00:00 AM EDT active Nebulizer/Tubing/ Mouthpiece - eCW1 ([facility]) Nebulizer Compressor UNK 09/03/2019 12:00:00 AM EDT active Nebulizer Compressor eCW1 ([facility]) Nebulizer Compressor UNK 09/03/2019 12:00:00 AM EDT active Nebulizer Compressor eCW1 ([facility]) Nebulizer/Tubing/Mouthpiece - Nebulizer/Tubing/Mouthpiece - 09/03/2019 12:00:00 AM EDT active Nebulizer/Tubing/ Mouthpiece - eCW1 ([facility]) Nebulizer/Tubing/Mouthpiece - Nebulizer/Tubing/Mouthpiece - 09/03/2019 12:00:00 AM EDT active Nebulizer/Tubing/ Mouthpiece - eCW1 ([facility]) Nebulizer/Tubing/Mouthpiece - Nebulizer/Tubing/Mouthpiece - 09/03/2019 12:00:00 AM EDT active Nebulizer/Tubing/ Mouthpiece - eCW1 ([facility]) Nebulizer/Tubing/Mouthpiece - Nebulizer/Tubing/Mouthpiece - 09/03/2019 12:00:00 AM EDT active Nebulizer/Tubing/ Mouthpiece - eCW1 ([facility]) Nebulizer/Tubing/Mouthpiece - Nebulizer/Tubing/Mouthpiece - 09/03/2019 12:00:00 AM EDT active as directed eCW1 ([facility]) Nebulizer Compressor UNK 09/03/2019 12:00:00 AM EDT active Nebulizer Compressor eCW1 ([facility]) Nebulizer/Tubing/Mouthpiece - Nebulizer/Tubing/Mouthpiece - 09/03/2019 12:00:00 AM EDT active Nebulizer/Tubing/ Mouthpiece - eCW1 ([facility]) Nebulizer Compressor UNK 09/03/2019 12:00:00 AM EDT active Nebulizer Compressor eCW1 ([facility]) Nebulizer Compressor UNK 09/03/2019 12:00:00 AM EDT active Nebulizer Compressor eCW1 ([facility]) Nebulizer/Tubing/Mouthpiece - Nebulizer/Tubing/Mouthpiece - 09/03/2019 12:00:00 AM EDT active Nebulizer/Tubing/ Mouthpiece - eCW1 ([facility]) Nebulizer/Tubing/Mouthpiece - Nebulizer/Tubing/Mouthpiece - 09/03/2019 12:00:00 AM EDT active Nebulizer/Tubing/ Mouthpiece - eCW1 ([facility]) Nebulizer/Tubing/Mouthpiece - Nebulizer/Tubing/Mouthpiece - 09/03/2019 12:00:00 AM EDT active Nebulizer/Tubing/ Mouthpiece - eCW1 ([facility]) Nebulizer/Tubing/Mouthpiece - Nebulizer/Tubing/Mouthpiece - 09/03/2019 12:00:00 AM EDT active Nebulizer/Tubing/ Mouthpiece - eCW1 ([facility]) Nebulizer/Tubing/Mouthpiece - Nebulizer/Tubing/Mouthpiece - 09/03/2019 12:00:00 AM EDT active Nebulizer/Tubing/ Mouthpiece - eCW1 ([facility]) Nebulizer Compressor UNK 09/03/2019 12:00:00 AM EDT active Nebulizer Compressor eCW1 ([facility]) Nebulizer/Tubing/Mouthpiece - Nebulizer/Tubing/Mouthpiece - 09/03/2019 12:00:00 AM EDT active Nebulizer/Tubing/ Mouthpiece - eCW1 ([facility]) Nebulizer Compressor UNK 09/03/2019 12:00:00 AM EDT active Nebulizer Compressor eCW1 ([facility]) 10 mg 09/03/2019 12:00:00 AM EDT tablet 90 TAKE ONE TABLET BY MOUTH THREE TIMES A DAY TAKE ONE TABLET BY MOUTH THREE TIMES A DAY SOLD: 09/26/2019 [facility] Nebulizer Compressor UNK 09/03/2019 12:00:00 AM EDT active Nebulizer Compressor eCW1 ([facility]) Nebulizer/Tubing/Mouthpiece - Nebulizer/Tubing/Mouthpiece - 09/03/2019 12:00:00 AM EDT active Nebulizer/Tubing/ Mouthpiece - eCW1 ([facility]) 10 mg 09/03/2019 12:00:00 AM EDT capsule 120 TAKE ONE CAPSULE BY MOUTH FOUR TIMES A DAY TAKE ONE CAPSULE BY MOUTH FOUR TIMES A DAY SOLD: 11/26/2019 [facility] Nebulizer Compressor UNK 09/03/2019 12:00:00 AM EDT active Nebulizer Compressor eCW1 ([facility]) Nebulizer Compressor UNK 09/03/2019 12:00:00 AM EDT active Nebulizer Compressor eCW1 ([facility]) Nebulizer/Tubing/Mouthpiece - Nebulizer/Tubing/Mouthpiece - 09/03/2019 12:00:00 AM EDT active Nebulizer/Tubing/ Mouthpiece - eCW1 ([facility]) Nebulizer/Tubing/Mouthpiece - Nebulizer/Tubing/Mouthpiece - 09/03/2019 12:00:00 AM EDT active Nebulizer/Tubing/ Mouthpiece - eCW1 ([facility]) Nebulizer Compressor UNK 09/03/2019 12:00:00 AM EDT active Nebulizer Compressor eCW1 ([facility]) Nebulizer/Tubing/Mouthpiece - Nebulizer/Tubing/Mouthpiece - 09/03/2019 12:00:00 AM EDT active Nebulizer/Tubing/ Mouthpiece - eCW1 ([facility]) 4 mg 09/01/2019 12:00:00 AM EDT tablet [...] 12:00:00 AM EDT active 2 tablets eCW1 ([facility]) Hydromorphone Hydrochloride 4 MG Oral Tablet Hydromorp nellie HCl 4 MG Hydromorphone HCl 4 MG 08/28/2019 12:00:00 AM EDT active 2 tablets eCW1 ([facility]) Hydromorphone Hydrochloride 4 MG Oral Tablet Hydromorp nellie HCl 4 MG Hydromorphone HCl 4 MG 08/20/2019 12:00:00 AM EDT active 2 tablets eCW1 ([facility]) Hydromorphone Hydrochloride 4 MG Oral Tablet Hydromorp nellie HCl 4 MG Hydromorphone HCl 4 MG 08/20/2019 12:00:00 AM EDT active 2 tablets eCW1 ([facility]) 4 mg 08/20/2019 12:00:00 AM EDT tablet [...] 12:00:00 AM EDT active 2 tablets eCW1 ([facility]) Hydromorphone Hydrochloride 4 MG Oral Tablet Hydromorp nellie HCl 4 MG Hydromorphone HCl 4 MG 08/11/2019 12:00:00 AM EDT 2.0 {tablets} active Hydromorphone HCl 4 MG eCW1 ([facility]) 4 mg 08/11/2019 12:00:00 AM EDT tablet 112 TAKE 2 TABLETS BY MOUTH EVERY 3 HOURS NEEDED MAX DAILY DOSE = 16 TABLETS TAKE 2 TABLETS BY MOUTH EVERY 3 HOURS NEEDED MAX DAILY DOSE = 16 TABLETS SOLD: 08/11/2019 [facility] Hydromorphone Hydrochloride 4 MG Oral Tablet Hydromorp nellie HCl 4 MG Hydromorphone HCl 4 MG 08/11/2019 12:00:00 AM EDT 2.0 {tablets} active Hydromorphone HCl 4 MG eCW1 ([facility]) Hydromorphone Hydrochloride 4 MG Oral Tablet Hydromorp nellie HCl 4 MG Hydromorphone HCl 4 MG 08/06/2019 12:00:00 AM EDT active 2 tablets eCW1 ([facility]) 4 mg 08/06/2019 12:00:00 AM EDT tablet 32 TAKE 2 TABLETS BY MOUTH EVERY 3HRS NEEDED MAX 24 TABS/DAY TAKE 2 TABLETS BY MOUTH EVERY 3HRS NE EDED MAX 24 TABS/DAY SOLD: 08/06/2019 [facility] 150 mg 08/06/2019 12:00:00 AM [...] EDT active 1 tablet as needed eCW1 ([facility]) 2 mg 07/28/2019 12:00:00 AM EDT tablet 75 TAKE 1 TABLET BY MOUTH EVERY 6HRS NEEDED SPASMS & PAIN MAX=3TABS/DAY TAKE 1 TABLET BY MOUTH EVERY 6HRS NEEDED SPASMS & PAIN MAX=3TABS/DAY SOLD: 07/28/2019 [facility] Hydromorphone Hydrochloride 4 MG Oral Tablet Hydromorp nellie HCl 4 MG Hydromorphone HCl 4 MG 07/28/2019 12:00:00 AM EDT active 2 tablets eCW1 ([facility]) 0.1 % 07/27/2019 12:00:00 AM EDT cream 15 APPLY THIN LAYER TO RED AREAS ON FINGERS TWICE DAILY APPLY THIN LAYER TO RED AREAS ON FINGERS TWICE DAILY S OLD: 07/27/2019 [facility] Doxycycline Monohydrate 100 MG Oral Capsule Doxycycline [place] hydrate 100 MG 07/26/2019 12:00:00 AM EDT active 1 capsule eCW1 ([facility]) Doxycycline Monohydrate 100 MG Oral Capsule Doxycycline [place] hydrate 100 MG 07/26/2019 12:00:00 AM EDT active 1 capsule eCW1 ([facility]) 100 mg 07/26/2019 12:00:00 AM EDT capsule [...] 12:00:00 AM EDT active 2 tablets eCW1 ([facility]) 4 mg 07/23/2019 12:00:00 AM EDT tablet 32 TAKE TWO TABLETS BY MOUTH EVERY 3 HOURS NEEDED MAXIMUM DAILY DOSE = 24 TABLETS TAKE TWO TABLETS BY MOUTH EVERY 3 HOURS NEEDED MAXIMUM DAILY DOSE = 24 TABLETS SOLD: 07/23/2019 [facility] Pen [place] 5/16" UNK 07/22/2019 12:00:00 AM EDT active Pen [place] 5/16" eCW1 ([facility]) Pen [place] 5/16" UNK 07/22/2019 12:00:00 AM EDT active Pen [place] 5/16" eCW1 ([facility]) Pen [place] 5/16" UNK 07/22/2019 12:00:00 AM EDT active Pen [place] 5/16" eCW1 ([facility]) Pen [place] 5/16" UNK 07/22/2019 12:00:00 AM EDT active Pen [place] 5/16" eCW1 ([facility]) Pen [place] 5/16" UNK 07/22/2019 12:00:00 AM EDT active Pen [place] 5/16" eCW1 ([facility]) Pen [place] 5/16" UNK 07/22/2019 12:00:00 AM EDT active Pen [place] 5/16" eCW1 ([facility]) Pen [place] 5/16" UNK 07/22/2019 12:00:00 AM EDT active Pen [place] 5/16" eCW1 ([facility]) Pen [place] 5/16" UNK 07/22/2019 12:00:00 AM EDT active Pen [place] 5/16" eCW1 ([facility]) Pen [place] 5/16" UNK 07/22/2019 12:00:00 AM EDT active Pen [place] 5/16" eCW1 ([facility]) Pen [place] 5/16" UNK 07/22/2019 12:00:00 AM EDT active Pen [place] 5/16" eCW1 ([facility]) Pen [place] 5/16" UNK 07/22/2019 12:00:00 AM EDT active Pen [place] 5/16" eCW1 ([facility]) 31 gauge x 5/16" 07/22/2019 12:00:00 AM EDT needle 100 USE DIRECTED DAILY USE DIRECTED DAILY SOLD: 07/22/2019 [facility] Pen [place] 5/16" UNK 07/22/2019 12:00:00 AM EDT active Pen [place] 5/16" eCW1 ([facility]) Pen [place] 5/16" UNK 07/22/2019 12:00:00 AM EDT active Pen [place] 5/16" eCW1 ([facility]) Pen [place] 5/16" UNK 07/22/2019 12:00:00 AM EDT active Pen [place] 5/16" eCW1 ([facility]) Pen [place] 5/16" UNK 07/22/2019 12:00:00 AM EDT active Pen [place] 5/16" eCW1 ([facility]) Pen [place] 5/16" UNK 07/22/2019 12:00:00 AM EDT active Pen [place] 5/16" eCW1 ([facility]) Pen [place] 5/16" UNK 07/22/2019 12:00:00 AM EDT active as directed eCW1 ([facility]) Pen [place] 5/16" UNK 07/22/2019 12:00:00 AM EDT active Pen [place] 5/16" eCW1 ([facility]) Pen [place] 5/16" UNK 07/22/2019 12:00:00 AM EDT active Pen [place] 5/16" eCW1 ([facility]) Pen [place] 5/16" UNK 07/22/2019 12:00:00 AM EDT active Pen [place] 5/16" eCW1 ([facility]) Pen [place] 5/16" UNK 07/22/2019 12:00:00 AM EDT active Pen [place] 5/16" eCW1 ([facility]) Pen [place] 5/16" UNK 07/22/2019 12:00:00 AM EDT active Pen [place] 5/16" eCW1 ([facility]) Pen [place] 5/16" UNK 07/22/2019 12:00:00 AM EDT active Pen [place] 5/16" eCW1 ([facility]) Pen [place] 5/16" UNK 07/22/2019 12:00:00 AM EDT active Pen [place] 5/16" eCW1 ([facility]) Pen [place] 5/16" UNK 07/22/2019 12:00:00 AM EDT active Pen [place] 5/16" eCW1 ([facility]) Pen [place] 5/16" UNK 07/22/2019 12:00:00 AM EDT active Pen [place] 5/16" eCW1 ([facility]) Pen [place] 5/16" UNK 07/22/2019 12:00:00 AM EDT active Pen [place] 5/16" eCW1 ([facility]) Pen [place] 5/16" UNK 07/22/2019 12:00:00 AM EDT active Pen [place] 5/16" eCW1 ([facility]) Pen [place] 5/16" UNK 07/22/2019 12:00:00 AM EDT active as directed W1 ([facility]) Pen [place] 5/16" UNK 07/22/2019 12:00:00 AM EDT active Pen [place] 5/16" eCW1 ([facility]) Pen [place] 5/16" UNK 07/22/2019 12:00:00 AM EDT active Pen [place] 5/16" eCW1 ([facility]) Pen [place] 5/16" UNK 07/22/2019 12:00:00 AM EDT active Pen [place] 5/16" eCW1 ([facility]) Pen [place] 5/16" UNK 07/22/2019 12:00:00 AM EDT active Pen [place] 5/16" eCW1 ([facility]) Pen [place] 5/16" UNK 07/22/2019 12:00:00 AM EDT active Pen [place] 5/16" eCW1 ([facility]) Pen [place] 5/16" UNK 07/22/2019 12:00:00 AM EDT active Pen [place] 5/16" eCW1 ([facility]) Pen [place] 5/16" UNK 07/22/2019 12:00:00 AM EDT active Pen [place] 5/16" eCW1 ([facility]) Pen [place] 5/16" UNK 07/22/2019 12:00:00 AM EDT active Pen [place] 5/16" W1 ([facility]) Pen [place] 5/16" UNK 07/22/2019 12:00:00 AM EDT active as directed W1 ([facility]) Pen [place] 5/16" UNK 07/22/2019 12:00:00 AM EDT active Pen [place] 5/16" eCW1 ([facility]) Pen [place] 5/16" UNK 07/22/2019 12:00:00 AM EDT active Pen [place] 5/16" eCW1 ([facility]) Pen [place] 5/16" UNK 07/22/2019 12:00:00 AM EDT active Pen [place] 5/16" eCW1 ([facility]) Pen [place] 5/16" UNK 07/22/2019 12:00:00 AM EDT active Pen [place] 5/16" eCW1 ([facility]) Pen [place] 5/16" UNK 07/22/2019 12:00:00 AM EDT active Pen [place] 5/16" eCW1 ([facility]) Pen [place] 5/16" UNK 07/22/2019 12:00:00 AM EDT active Pen [place] 5/16" eCW1 ([facility]) Pen [place] 5/16" UNK 07/22/2019 12:00:00 AM EDT active Pen [place] 5/16" eCW1 ([facility]) Pen [place] 5/16" UNK 07/22/2019 12:00:00 AM EDT active Pen [place] 5/16" eCW1 ([facility]) Pen [place] 5/16" UNK 07/22/2019 12:00:00 AM EDT active Pen [place] 5/16" eCW1 ([facility]) Pen [place] 5/16" UNK 07/22/2019 12:00:00 AM EDT active Pen [place] 5/16" eCW1 ([facility]) Pen [place] 5/16" UNK 07/22/2019 12:00:00 AM EDT active as directed eCW1 ([facility]) Pen [place] 5/16" UNK 07/22/2019 12:00:00 AM EDT active Pen [place] 5/16" eCW1 ([facility]) Pen [place] 5/16" UNK 07/22/2019 12:00:00 AM EDT active as directed eCW1 ([facility]) Pen [place] 5/16" UNK 07/22/2019 12:00:00 AM EDT active Pen [place] 5/16" eCW1 ([facility]) Pen [place] 5/16" UNK 07/22/2019 12:00:00 AM EDT active Pen [place] 5/16" eCW1 ([facility]) Pen [place] 5/16" UNK 07/22/2019 12:00:00 AM EDT active Pen [place] 5/16" eCW1 ([facility]) Pen [place] 5/16" UNK 07/22/2019 12:00:00 AM EDT active Pen [place] 5/16" eCW1 ([facility]) Pen [place] 5/16" UNK 07/22/2019 12:00:00 AM EDT active Pen [place] 5/16" eCW1 ([facility]) Pen [place] 5/16" UNK 07/22/2019 12:00:00 AM EDT active Pen [place] 5/16" eCW1 ([facility]) Pen [place] 5/16" UNK 07/22/2019 12:00:00 AM EDT active Pen [place] 5/16" eCW1 ([facility]) Pen [place] 5/16" UNK 07/22/2019 12:00:00 AM EDT active Pen [place] 5/16" eCW1 ([facility]) Pen [place] 5/16" UNK 07/22/2019 12:00:00 AM EDT active Pen [place] 5/16" eCW1 ([facility]) Pen [place] 5/16" UNK 07/22/2019 12:00:00 AM EDT active Pen [place] 5/16" W1 ([facility]) Pen [place] 5/16" UNK 07/22/2019 12:00:00 AM EDT active Pen [place] 5/16" W1 ([facility]) Pen [place] 5/16" UNK 07/22/2019 12:00:00 AM EDT active Pen [place] 5/16" W1 ([facility]) Pen [place] 5/16" UNK 07/22/2019 12:00:00 AM EDT active Pen [place] 5/16" W1 ([facility]) Pen [place] 5/16" UNK 07/22/2019 12:00:00 AM EDT active Pen [place] 5/16" W1 ([facility]) Pen [place] 5/16" UNK 07/22/2019 12:00:00 AM EDT active Pen [place] 5/16" W1 ([facility]) Pen [place] 5/16" UNK 07/22/2019 12:00:00 AM EDT active Pen [place] 5/16" W1 ([facility]) Pen [place] 5/16" UNK 07/22/2019 12:00:00 AM EDT active Pen [place] 5/16" W1 ([facility]) Pen [place] 5/16" UNK 07/22/2019 12:00:00 AM EDT active Pen [place] 5/16" W1 ([facility]) Pen [place] 5/16" UNK 07/22/2019 12:00:00 AM EDT active Pen [place] 5/16" W1 ([facility]) Pen [place] 5/16" UNK 07/22/2019 12:00:00 AM EDT active Pen [place] 5/16" eCW1 ([facility]) Pen [place] 5/16" UNK 07/22/2019 12:00:00 AM EDT active Pen [place] 5/16" eCW1 ([facility]) Pen [place] 5/16" UNK 07/22/2019 12:00:00 AM EDT active Pen [place] 5/16" eCW1 ([facility]) Pen [place] 5/16" UNK 07/22/2019 12:00:00 AM EDT active Pen [place] 5/16" eCW1 ([facility]) Pen [place] 5/16" UNK 07/22/2019 12:00:00 AM EDT active Pen [place] 5/16" eCW1 ([facility]) Pen [place] 5/16" UNK 07/22/2019 12:00:00 AM EDT active Pen [place] 5/16" eCW1 ([facility]) Pen [place] 5/16" UNK 07/22/2019 12:00:00 AM EDT active Pen [place] 5/16" eCW1 ([facility]) Pen [place] 5/16" UNK 07/22/2019 12:00:00 AM EDT active Pen [place] 5/16" eCW1 ([facility]) Levemir Flex Touch 100 UNIT/ML UNK 07/16/2019 12:00:00 AM EDT active Levemir Flex Touch 100 UNIT/ML eCW1 ([facility]) Levemir Flex Touch 100 UNIT/ML UNK 07/16/2019 12:00:00 AM EDT active Levemir Flex Touch 100 UNIT/ML eCW1 ([facility]) Levemir Flex Touch 100 UNIT/ML UNK 07/16/2019 12:00:00 AM EDT active Levemir Flex Touch 100 UNIT/ML eCW1 ([facility]) Levemir Flex Touch 100 UNIT/ML UNK 07/16/2019 12:00:00 AM EDT active Levemir Flex Touch 100 UNIT/ML eCW1 ([facility]) Levemir Flex Touch 100 UNIT/ML UNK 07/16/2019 12:00:00 AM EDT active Levemir Flex Touch 100 UNIT/ML eCW1 ([facility]) Levemir Flex Touch 100 UNIT/ML UNK 07/16/2019 12:00:00 AM EDT active Levemir Flex Touch 100 UNIT/ML eCW1 ([facility]) Levemir Flex Touch 100 UNIT/ML UNK 07/16/2019 12:00:00 AM EDT active Levemir Flex Touch 100 UNIT/ML eCW1 ([facility]) 100 unit/mL (3 mL) 07/16/2019 12:00:00 AM [...] active Levemir Flex Touch 100 UNIT/ML eCW1 ([facility]) Levemir Flex Touch 100 UNIT/ML UNK 07/16/2019 12:00:00 AM EDT active Levemir Flex Touch 100 UNIT/ML eCW1 ([facility]) Levemir Flex Touch 100 UNIT/ML UNK 07/16/2019 12:00:00 AM EDT active Levemir Flex Touch 100 UNIT/ML eCW1 ([facility]) Levemir Flex Touch 100 UNIT/ML UNK 07/16/2019 12:00:00 AM EDT active Levemir Flex Touch 100 UNIT/ML eCW1 ([facility]) Levemir Flex Touch 100 UNIT/ML UNK 07/16/2019 12:00:00 AM EDT active Levemir Flex Touch 100 UNIT/ML eCW1 (Formerly [facility]) Levemir Flex Touch 100 UNIT/ML UNK 07/16/2019 12:00:00 AM EDT active 25 units eCW1 ([facility]) Levemir Flex Touch 100 UNIT/ML UNK 07/16/2019 12:00:00 AM EDT active Levemir Flex Touch 100 UNIT/ML eCW1 (Formerly [facility]) Levemir Flex Touch 100 UNIT/ML UNK 07/16/2019 12:00:00 AM EDT active Levemir Flex Touch 100 UNIT/ML eCW1 (Formerly [facility]) Levemir Flex Touch 100 UNIT/ML UNK 07/16/2019 12:00:00 AM EDT active Levemir Flex Touch 100 UNIT/ML eCW1 (Formerly [facility]) 50 mg 07/16/2019 12:00:00 AM EDT tablet 120 TAKE ONE TABLET BY MOUTH EVERY MORNING & 3 AT BEDTIME DIRECTED TAKE ONE TABLET BY MOUTH EVERY MORNING & 3 AT BEDTIME DIRECTED SOLD: 09/19/2019 [facility] Levemir Flex Touch 100 UNIT/ML UNK 07/16/2019 12:00:00 AM EDT active Levemir Flex Touch 100 UNIT/ML eCW1 (Formerly [facility]) Hydromorphone Hydrochloride 4 MG Oral Tablet Hydromorp nellie HCl 4 MG Hydromorphone HCl 4 MG 07/16/2019 12:00:00 AM EDT active 2 tablets eCW1 ([facility]) Levemir Flex Touch 100 UNIT/ML UNK 07/16/2019 12:00:00 AM EDT active Levemir Flex Touch 100 UNIT/ML eCW1 (Formerly [facility]) 4 mg/2 mL 07/16/2019 12:00:00 AM EDT solution 120 1 VIAL TWO TIMES A DAY AT LEAST 8 HOURS APART DIRECTED 1 VIAL TWO TIMES A DAY AT LEAST 8 HOURS APART DIRECTED SOLD: 09/01/2019 [facility] Levemir Flex Touch 100 UNIT/ML UNK 07/16/2019 12:00:00 AM EDT active Levemir Flex Touch 100 UNIT/ML eCW1 (Formerly [facility]) Levemir Flex Touch 100 UNIT/ML UNK 07/16/2019 12:00:00 AM EDT active Levemir Flex Touch 100 UNIT/ML eCW1 (Formerly [facility]) 0.1 % 07/16/2019 12:00:00 AM EDT cream 15 APPLY THIN LAYER TO RED AREAS ON FINGERS TWICE A DAY APPLY THIN LAYER TO RED AREAS ON FINGERS TWICE A DAY S OLD: 11/18/2019 [facility] Levemir Flex Touch 100 UNIT/ML UNK 07/16/2019 12:00:00 AM EDT active Levemir Flex Touch 100 UNIT/ML eCW1 (Formerly [facility]) Levemir Flex Touch 100 UNIT/ML UNK 07/16/2019 12:00:00 AM EDT active Levemir Flex Touch 100 UNIT/ML eCW1 (Formerly [facility]) Levemir Flex Touch 100 UNIT/ML UNK 07/16/2019 12:00:00 AM EDT active Levemir Flex Touch 100 UNIT/ML eCW1 (Formerly [facility]) Levemir Flex Touch 100 UNIT/ML UNK 07/16/2019 12:00:00 AM EDT active Levemir Flex Touch 100 UNIT/ML eCW1 (Formerly [facility]) Levemir Flex Touch 100 UNIT/ML UNK 07/16/2019 12:00:00 AM EDT active Levemir Flex Touch 100 UNIT/ML eCW1 (Formerly [facility]) Levemir Flex Touch 100 UNIT/ML UNK 07/16/2019 12:00:00 AM EDT active Levemir Flex Touch 100 UNIT/ML eCW1 (Formerly [facility]) Levemir Flex Touch 100 UNIT/ML UNK 07/16/2019 12:00:00 AM EDT active Levemir Flex Touch 100 UNIT/ML eCW1 (Formerly [facility]) Nystatin 100 UNT/MG Topical Powder Nystatin 149079 UNI T/GM Nystatin 163191 UNIT/GM 07/16/2019 12:00:00 AM EDT active 1 application eCW1 ([facility]) Levemir Flex Touch 100 UNIT/ML UNK 07/16/2019 12:00:00 AM EDT active Levemir Flex Touch 100 UNIT/ML eCW1 (Formerly [facility]) Levemir Flex Touch 100 UNIT/ML UNK 07/16/2019 12:00:00 AM EDT active Levemir Flex Touch 100 UNIT/ML eCW1 (Formerly [facility]) Levemir Flex Touch 100 UNIT/ML UNK 07/16/2019 12:00:00 AM EDT active 10 units eCW1 ([facility] hospital) Levemir Flex Touch 100 UNIT/ML UNK 07/16/2019 12:00:00 AM EDT active Levemir Flex Touch 100 UNIT/ML eCW1 (Formerly [facility]) Levemir Flex Touch 100 UNIT/ML UNK 07/16/2019 12:00:00 AM EDT active Levemir Flex Touch 100 UNIT/ML eCW1 (Formerly [facility]) Levemir Flex Touch 100 UNIT/ML UNK 07/16/2019 12:00:00 AM EDT active Levemir Flex Touch 100 UNIT/ML eCW1 (Formerly [facility]) Levemir Flex Touch 100 UNIT/ML UNK 07/16/2019 12:00:00 AM EDT active Levemir Flex Touch 100 UNIT/ML eCW1 (Formerly [facility]) Levemir Flex Touch 100 UNIT/ML UNK 07/16/2019 12:00:00 AM EDT active Levemir Flex Touch 100 UNIT/ML eCW1 (Formerly [facility]) 50 mg 07/16/2019 12:00:00 AM EDT tablet 120 TAKE ONE TABLET BY MOUTH EVERY MORNING & 3 AT BEDTIME DIRECTED TAKE ONE TABLET BY MOUTH EVERY MORNING & 3 AT BEDTIME DIRECTED SOLD: 08/26/2019 [facility] Le[facility]mir Flex Touch 100 UNIT/ML UNK 07/16/2019 12:00:00 AM EDT active Levemir Flex Touch 100 UNIT/ML eCW1 (Formerly [facility]) Levemir Flex Touch 100 UNIT/ML UNK 07/16/2019 12:00:00 AM EDT active Levemir Flex Touch 100 UNIT/ML eCW1 (Formerly [facility]) Levemir Flex Touch 100 UNIT/ML UNK 07/16/2019 12:00:00 AM EDT active Levemir Flex Touch 100 UNIT/ML eCW1 (Formerly [facility]) Levemir Flex Touch 100 UNIT/ML UNK 07/16/2019 12:00:00 AM EDT active Levemir Flex Touch 100 UNIT/ML eCW1 (Formerly [facility]) Levemir Flex Touch 100 UNIT/ML UNK 07/16/2019 12:00:00 AM EDT active 35 units eCW1 ([facility] hospital) Levemir Flex Touch 100 UNIT/ML UNK 07/16/2019 12:00:00 AM EDT active Levemir Flex Touch 100 UNIT/ML eCW1 (Formerly [facility]) Levemir Flex Touch 100 UNIT/ML UNK 07/16/2019 12:00:00 AM EDT active Levemir Flex Touch 100 UNIT/ML eCW1 (Formerly [facility]) Levemir Flex Touch 100 UNIT/ML UNK 07/16/2019 12:00:00 AM EDT active Levemir Flex Touch 100 UNIT/ML eCW1 (Formerly [facility]) 0.1 % 07/16/2019 12:00:00 AM EDT cream [...] active Levemir Flex Touch 100 UNIT/ML eCW1 (Formerly [facility]) Levemir Flex Touch 100 UNIT/ML UNK 07/16/2019 12:00:00 AM EDT active Levemir Flex Touch 100 UNIT/ML eCW1 (Formerly [facility]) Levemir Flex Touch 100 UNIT/ML UNK 07/16/2019 12:00:00 AM EDT active Levemir Flex Touch 100 UNIT/ML eCW1 (Formerly [facility]) Levemir Flex Touch 100 UNIT/ML UNK 07/16/2019 12:00:00 AM EDT active Levemir Flex Touch 100 UNIT/ML eCW1 (Formerly [facility]) Levemir Flex Touch 100 UNIT/ML UNK 07/16/2019 12:00:00 AM EDT active Levemir Flex Touch 100 UNIT/ML eCW1 (Formerly [facility]) Levemir Flex Touch 100 UNIT/ML UNK 07/16/2019 12:00:00 AM EDT active Levemir Flex Touch 100 UNIT/ML eCW1 (Formerly [facility]) Levemir Flex Touch 100 UNIT/ML UNK 07/16/2019 12:00:00 AM EDT active Levemir Flex Touch 100 UNIT/ML eCW1 (Formerly [facility]) Levemir Flex Touch 100 UNIT/ML UNK 07/16/2019 12:00:00 AM EDT active Levemir Flex Touch 100 UNIT/ML eCW1 (Formerly [facility]) Levemir Flex Touch 100 UNIT/ML UNK 07/16/2019 12:00:00 AM EDT active Levemir Flex Touch 100 UNIT/ML eCW1 (Formerly [facility]) Levemir Flex Touch 100 UNIT/ML UNK 07/16/2019 12:00:00 AM EDT active Levemir Flex Touch 100 UNIT/ML eCW1 (Formerly [facility]) Nystatin 100 UNT/MG Topical Powder 100,000 unit/gram [place] N 07/16/2019 12:00:00 AM EDT powder 15 APPLY TO PERIANAL AREA TW O TIMES A DAY FOR 7 DAYS APPLY TO PERIANAL AREA TWO TIMES A DAY FOR 7 DAYS SOLD: 07/16/2019 [facility] Levemir Flex Touch 100 UNIT/ML UNK 07/16/2019 12:00:00 AM EDT active Levemir Flex Touch 100 UNIT/ML eCW1 (Formerly [facility]) Levemir Flex Touch 100 UNIT/ML UNK 07/16/2019 12:00:00 AM EDT active Levemir Flex Touch 100 UNIT/ML eCW1 (Formerly [facility]) Levemir Flex Touch 100 UNIT/ML UNK 07/16/2019 12:00:00 AM EDT active Levemir Flex Touch 100 UNIT/ML eCW1 (Formerly [facility]) Levemir Flex Touch 100 UNIT/ML UNK 07/16/2019 12:00:00 AM EDT active Levemir Flex Touch 100 UNIT/ML eCW1 (Formerly [facility]) 4 mg 07/16/2019 12:00:00 AM EDT tablet 32 TAKE 2 TABLETS BY MOUTH EVERY 3 HOURS NEEDED MAX 24TABS/DAY TAKE 2 TABLETS BY MOUTH EVERY 3 HOURS NEEDED MAX 24TABS/DAY SOLD: 07/16/2019 [facility] Levemir Flex Touch 100 UNIT/ML UNK 07/16/2019 12:00:00 AM EDT active Levemir Flex Touch 100 UNIT/ML eCW1 (Formerly [facility]) 50 mg 07/16/2019 12:00:00 AM EDT tablet 120 TAKE ONE TABLET BY MOUTH EVERY MORNING & 3 AT BEDTIME DIRECTED TAKE ONE TABLET BY MOUTH EVERY MORNING & 3 AT BEDTIME DIRECTED SOLD: 07/16/2019 [facility] Levemir Flex Touch 100 UNIT/ML UNK 07/16/2019 12:00:00 AM EDT active Levemir Flex Touch 100 UNIT/ML eCW1 (Formerly [facility]) Levemir Flex Touch 100 UNIT/ML UNK 07/16/2019 12:00:00 AM EDT active Levemir Flex Touch 100 UNIT/ML eCW1 (Formerly [facility]) Levemir Flex Touch 100 UNIT/ML UNK 07/16/2019 12:00:00 AM EDT active Levemir Flex Touch 100 UNIT/ML eCW1 (Formerly [facility]) 50 mg 07/16/2019 12:00:00 AM EDT tablet 120 TAKE ONE TABLET BY MOUTH EVERY MORNING & 3 AT BEDTIME DIRECTED TAKE ONE TABLET BY MOUTH EVERY MORNING & 3 AT BEDTIME DIRECTED SOLD: 07/29/2019 [facility] Levemir Flex Touch 100 UNIT/ML UNK 07/16/2019 12:00:00 AM EDT active Levemir Flex Touch 100 UNIT/ML eCW1 (Formerly [facility]) 4 mg/2 mL 07/16/2019 12:00:00 AM EDT solution 120 1 VIAL TWO TIMES A DAY AT LEAST 8 HOURS APART DIRECTED 1 VIAL TWO TIMES A DAY AT LEAST 8 HOURS APART DIRECTED SOLD: 07/16/2019 [facility] Le[facility]mir Flex Touch 100 UNIT/ML UNK 07/16/2019 12:00:00 AM EDT active Levemir Flex Touch 100 UNIT/ML eCW1 ([facility]ly [facility]) Levemir Flex Touch 100 UNIT/ML UNK 07/16/2019 12:00:00 AM EDT active Levemir Flex Touch 100 UNIT/ML eCW1 (Formerly [facility]) Levemir Flex Touch 100 UNIT/ML UNK 07/16/2019 12:00:00 AM EDT active Levemir Flex Touch 100 UNIT/ML eCW1 (Formerly [facility]) Levemir Flex Touch 100 UNIT/ML UNK 07/16/2019 12:00:00 AM EDT active Levemir Flex Touch 100 UNIT/ML eCW1 (Formerly [facility]) 50 mg 07/16/2019 12:00:00 AM EDT tablet 120 TAKE ONE TABLET BY MOUTH EVERY MORNING & 3 AT BEDTIME DIRECTED TAKE ONE TABLET BY MOUTH EVERY MORNING & 3 AT BEDTIME DIRECTED SOLD: 10/17/2019 [facility] Levemir Flex Touch 100 UNIT/ML UNK 07/16/2019 12:00:00 AM EDT active Levemir Flex Touch 100 UNIT/ML eCW1 (Formerly [facility]) Levemir Flex Touch 100 UNIT/ML UNK 07/16/2019 12:00:00 AM EDT active Levemir Flex Touch 100 UNIT/ML eCW1 (Formerly [facility]) Levemir Flex Touch 100 UNIT/ML UNK 07/16/2019 12:00:00 AM EDT active Levemir Flex Touch 100 UNIT/ML eCW1 (Formerly [facility]) 50 mg 07/16/2019 12:00:00 AM EDT tablet 120 TAKE ONE TABLET BY MOUTH EVERY MORNING & 3 AT BEDTIME DIRECTED TAKE ONE TABLET BY MOUTH EVERY MORNING & 3 AT BEDTIME DIRECTED SOLD: 11/15/2019 [facility] Levemir Flex Touch 100 UNIT/ML UNK 07/16/2019 12:00:00 AM EDT active Levemir Flex Touch 100 UNIT/ML eCW1 (Formerly [facility]) Levemir Flex Touch 100 UNIT/ML UNK 07/16/2019 12:00:00 AM EDT active 15 units eCW1 ([facility] hospital) Levemir Flex Touch 100 UNIT/ML UNK 07/16/2019 12:00:00 AM EDT active 25 units eCW1 ([facility] hospital) Levemir Flex Touch 100 UNIT/ML UNK 07/16/2019 12:00:00 AM EDT active Levemir Flex Touch 100 UNIT/ML eCW1 (Formerly [facility]) Levemir Flex Touch 100 UNIT/ML UNK 07/16/2019 12:00:00 AM EDT active Levemir Flex Touch 100 UNIT/ML eCW1 (Formerly [facility]) Levemir Flex Touch 100 UNIT/ML UNK 07/16/2019 12:00:00 AM EDT active Levemir Flex Touch 100 UNIT/ML eCW1 (Formerly [facility]) Levemir Flex Touch 100 UNIT/ML UNK 07/16/2019 12:00:00 AM EDT active Levemir Flex Touch 100 UNIT/ML eCW1 (Formerly [facility]) Levemir Flex Touch 100 UNIT/ML UNK 07/16/2019 12:00:00 AM EDT active Levemir Flex Touch 100 UNIT/ML eCW1 (Formerly [facility]) 0.1 % 07/16/2019 12:00:00 AM EDT cream 15 APPLY THIN LAYER TO RED AREAS ON FINGERS TWICE A DAY APPLY THIN LAYER TO RED AREAS ON FINGERS TWICE A DAY S OLD: 07/16/2019 [facility] Levemir Flex Touch 100 UNIT/ML UNK 07/16/2019 12:00:00 AM EDT active Levemir Flex Touch 100 UNIT/ML eCW1 (Formerly [facility]) 0.1 % 07/16/2019 12:00:00 AM EDT cream 15 APPLY THIN LAYER TO RED AREAS ON FINGERS TWICE A DAY APPLY THIN LAYER TO RED AREAS ON FINGERS TWICE A DAY S OLD: 09/07/2019 [facility] Hydromorphone Hydrochloride 4 MG Oral Tablet Hydromorp nellie HCl 4 MG Hydromorphone HCl 4 MG 07/09/2019 12:00:00 AM EDT active 3 tablets eCW1 ([facility]) Hydromorphone Hydrochloride 4 MG Oral Tablet Hydromorp nellie HCl 4 MG Hydromorphone HCl 4 MG 07/09/2019 12:00:00 AM EDT active 3 tablets eCW1 ([facility]) Hydromorphone Hydrochloride 4 MG Oral Tablet Hydromorp nellie HCl 4 MG Hydromorphone HCl 4 MG 07/09/2019 12:00:00 AM EDT active 2 tablets eCW1 ([facility]) Hydromorphone Hydrochloride 4 MG Oral Tablet Hydromorp nellie HCl 4 MG Hydromorphone HCl 4 MG 07/09/2019 12:00:00 AM EDT active 3 tablets eCW1 ([facility]) 4 mg 07/09/2019 12:00:00 AM EDT tablet 48 TAKE 3 TABLETS BY MOUTH EVERY 3 HOURS NEEDED MAXIMUM DAILY DOSE = 24 TABLETS TAKE 3 TABLETS BY MOUTH EVERY 3 HOURS NEEDED MAXIMUM DAILY DOSE = 24 TABLETS SOLD: 07/09/2019 [facility] Alcohol Prep Pad 70 % UNK 07/05/2019 12:00:00 AM EDT active Alcohol Prep Pad 70 % eCW1 ([facility]) Alcohol Prep Pad 70 % UNK 07/05/2019 12:00:00 AM EDT active Alcohol Prep Pad 70 % eCW1 ([facility]) Alcohol Prep Pad 70 % UNK 07/05/2019 12:00:00 AM EDT active as directed eCW1 ([facility]) Alcohol Prep Pad 70 % UNK 07/05/2019 12:00:00 AM EDT active Alcohol Prep Pad 70 % eCW1 ([facility]) Alcohol Prep Pad 70 % UNK 07/05/2019 12:00:00 AM EDT active Alcohol Prep Pad 70 % eCW1 ([facility]) Alcohol Prep Pad 70 % UNK 07/05/2019 12:00:00 AM EDT active Alcohol Prep Pad 70 % eCW1 ([facility]) Alcohol Prep Pad 70 % UNK 07/05/2019 12:00:00 AM EDT active as directed eCW1 ([facility]) Alcohol Prep Pad 70 % UNK 07/05/2019 12:00:00 AM EDT active Alcohol Prep Pad 70 % eCW1 ([facility]) Alcohol Prep Pad 70 % UNK 07/05/2019 12:00:00 AM EDT active Alcohol Prep Pad 70 % eCW1 ([facility]) Alcohol Prep Pad 70 % UNK 07/05/2019 12:00:00 AM EDT active Alcohol Prep Pad 70 % eCW1 ([facility]) Alcohol Prep Pad 70 % UNK 07/05/2019 12:00:00 AM EDT active Alcohol Prep Pad 70 % eCW1 ([facility]) Alcohol Prep Pad 70 % UNK 07/05/2019 12:00:00 AM EDT active Alcohol Prep Pad 70 % eCW1 ([facility]) Alcohol Prep Pad 70 % UNK 07/05/2019 12:00:00 AM EDT active Alcohol Prep Pad 70 % eCW1 ([facility]) Alcohol Prep Pad 70 % UNK 07/05/2019 12:00:00 AM EDT active Alcohol Prep Pad 70 % eCW1 ([facility]) Alcohol Prep Pad 70 % UNK 07/05/2019 12:00:00 AM EDT active Alcohol Prep Pad 70 % eCW1 ([facility]) Alcohol Prep Pad 70 % UNK 07/05/2019 12:00:00 AM EDT active Alcohol Prep Pad 70 % eCW1 ([facility]) Alcohol Prep Pad 70 % UNK 07/05/2019 12:00:00 AM EDT active as directed eCW1 ([facility]) Alcohol Prep Pad 70 % UNK 07/05/2019 12:00:00 AM EDT active Alcohol Prep Pad 70 % eCW1 ([facility]) Alcohol Prep Pad 70 % UNK 07/05/2019 12:00:00 AM EDT active Alcohol Prep Pad 70 % eCW1 ([facility]) Alcohol Prep Pad 70 % UNK 07/05/2019 12:00:00 AM EDT active Alcohol Prep Pad 70 % eCW1 ([facility]) Alcohol Prep Pad 70 % UNK 07/05/2019 12:00:00 AM EDT active Alcohol Prep Pad 70 % eCW1 ([facility]) Alcohol Prep Pad 70 % UNK 07/05/2019 12:00:00 AM EDT active Alcohol Prep Pad 70 % eCW1 ([facility]) Alcohol Prep Pad 70 % UNK 07/05/2019 12:00:00 AM EDT active Alcohol Prep Pad 70 % eCW1 ([facility]) Alcohol Prep Pad 70 % UNK 07/05/2019 12:00:00 AM EDT active Alcohol Prep Pad 70 % eCW1 ([facility]) Alcohol Prep Pad 70 % UNK 07/05/2019 12:00:00 AM EDT active Alcohol Prep Pad 70 % eCW1 ([facility]) Alcohol Prep Pad 70 % UNK 07/05/2019 12:00:00 AM EDT active Alcohol Prep Pad 70 % eCW1 ([facility]) Alcohol Prep Pad 70 % UNK 07/05/2019 12:00:00 AM EDT active Alcohol Prep Pad 70 % eCW1 ([facility]) Alcohol Prep Pad 70 % UNK 07/05/2019 12:00:00 AM EDT active Alcohol Prep Pad 70 % eCW1 ([facility]) Alcohol Prep Pad 70 % UNK 07/05/2019 12:00:00 AM EDT active Alcohol Prep Pad 70 % eCW1 ([facility]) Alcohol Prep Pad 70 % UNK 07/05/2019 12:00:00 AM EDT active Alcohol Prep Pad 70 % eCW1 ([facility]) Alcohol Prep Pad 70 % UNK 07/05/2019 12:00:00 AM EDT active Alcohol Prep Pad 70 % eCW1 ([facility]) Alcohol Prep Pad 70 % UNK 07/05/2019 12:00:00 AM EDT active as directed eCW1 ([facility]) Alcohol Prep Pad 70 % UNK 07/05/2019 12:00:00 AM EDT active Alcohol Prep Pad 70 % eCW1 ([facility]) Alcohol Prep Pad 70 % UNK 07/05/2019 12:00:00 AM EDT active Alcohol Prep Pad 70 % eCW1 ([facility]) Alcohol Prep Pad 70 % UNK 07/05/2019 12:00:00 AM EDT active Alcohol Prep Pad 70 % eCW1 ([facility]) Alcohol Prep Pad 70 % UNK 07/05/2019 12:00:00 AM EDT active Alcohol Prep Pad 70 % eCW1 ([facility]) Alcohol Prep Pad 70 % UNK 07/05/2019 12:00:00 AM EDT active Alcohol Prep Pad 70 % eCW1 ([facility]) Alcohol Prep Pad 70 % UNK 07/05/2019 12:00:00 AM EDT active Alcohol Prep Pad 70 % eCW1 ([facility]) Alcohol Prep Pad 70 % UNK 07/05/2019 12:00:00 AM EDT active Alcohol Prep Pad 70 % eCW1 ([facility]) Alcohol Prep Pad 70 % UNK 07/05/2019 12:00:00 AM EDT active Alcohol Prep Pad 70 % eCW1 ([facility]) Alcohol Prep Pad 70 % UNK 07/05/2019 12:00:00 AM EDT active Alcohol Prep Pad 70 % eCW1 ([facility]) Alcohol Prep Pad 70 % UNK 07/05/2019 12:00:00 AM EDT active as directed eCW1 ([facility]) Alcohol Prep Pad 70 % UNK 07/05/2019 12:00:00 AM EDT active Alcohol Prep Pad 70 % eCW1 ([facility]) Alcohol Prep Pad 70 % UNK 07/05/2019 12:00:00 AM EDT active Alcohol Prep Pad 70 % eCW1 ([facility]) Alcohol Prep Pad 70 % UNK 07/05/2019 12:00:00 AM EDT active Alcohol Prep Pad 70 % eCW1 ([facility]) Alcohol Prep Pad 70 % UNK 07/05/2019 12:00:00 AM EDT active Alcohol Prep Pad 70 % eCW1 ([facility]) Alcohol Prep Pad 70 % UNK 07/05/2019 12:00:00 AM EDT active as directed eCW1 ([facility]) Alcohol Prep Pad 70 % UNK 07/05/2019 12:00:00 AM EDT active Alcohol Prep Pad 70 % eCW1 ([facility]) Alcohol Prep Pad 70 % UNK 07/05/2019 12:00:00 AM EDT active Alcohol Prep Pad 70 % eCW1 ([facility]) Alcohol Prep Pad 70 % UNK 07/05/2019 12:00:00 AM EDT active Alcohol Prep Pad 70 % eCW1 ([facility]) Alcohol Prep Pad 70 % UNK 07/05/2019 12:00:00 AM EDT active as directed eCW1 ([facility]) Alcohol Prep Pad 70 % UNK 07/05/2019 12:00:00 AM EDT active Alcohol Prep Pad 70 % eCW1 ([facility]) Alcohol Prep Pad 70 % UNK 07/05/2019 12:00:00 AM EDT active Alcohol Prep Pad 70 % eCW1 ([facility]) Alcohol Prep Pad 70 % UNK 07/05/2019 12:00:00 AM EDT active Alcohol Prep Pad 70 % eCW1 ([facility]) Alcohol Prep Pad 70 % UNK 07/05/2019 12:00:00 AM EDT active Alcohol Prep Pad 70 % eCW1 ([facility]) Alcohol Prep Pad 70 % UNK 07/05/2019 12:00:00 AM EDT active Alcohol Prep Pad 70 % eCW1 ([facility]) Alcohol Prep Pad 70 % UNK 07/05/2019 12:00:00 AM EDT active Alcohol Prep Pad 70 % eCW1 ([facility]) Alcohol Prep Pad 70 % UNK 07/05/2019 12:00:00 AM EDT active Alcohol Prep Pad 70 % eCW1 ([facility]) Alcohol Prep Pad 70 % UNK 07/05/2019 12:00:00 AM EDT active Alcohol Prep Pad 70 % eCW1 ([facility]) Alcohol Prep Pad 70 % UNK 07/05/2019 12:00:00 AM EDT active Alcohol Prep Pad 70 % eCW1 ([facility]) Alcohol Prep Pad 70 % UNK 07/05/2019 12:00:00 AM EDT active Alcohol Prep Pad 70 % eCW1 ([facility]) Alcohol Prep Pad 70 % UNK 07/05/2019 12:00:00 AM EDT active Alcohol Prep Pad 70 % eCW1 ([facility]) Alcohol Prep Pad 70 % UNK 07/05/2019 12:00:00 AM EDT active Alcohol Prep Pad 70 % eCW1 ([facility]) Alcohol Prep Pad 70 % UNK 07/05/2019 12:00:00 AM EDT active Alcohol Prep Pad 70 % eCW1 ([facility]) Alcohol Prep Pad 70 % UNK 07/05/2019 12:00:00 AM EDT active Alcohol Prep Pad 70 % eCW1 ([facility]) Alcohol Prep Pad 70 % UNK 07/05/2019 12:00:00 AM EDT active Alcohol Prep Pad 70 % eCW1 ([facility]) Alcohol Prep Pad 70 % UNK 07/05/2019 12:00:00 AM EDT active Alcohol Prep Pad 70 % eCW1 ([facility]) Alcohol Prep Pad 70 % UNK 07/05/2019 12:00:00 AM EDT active Alcohol Prep Pad 70 % eCW1 ([facility]) Alcohol Prep Pad 70 % UNK 07/05/2019 12:00:00 AM EDT active Alcohol Prep Pad 70 % eCW1 ([facility]) Alcohol Prep Pad 70 % UNK 07/05/2019 12:00:00 AM EDT active Alcohol Prep Pad 70 % eCW1 ([facility]) Alcohol Prep Pad 70 % UNK 07/05/2019 12:00:00 AM EDT active Alcohol Prep Pad 70 % eCW1 ([facility]) Alcohol Prep Pad 70 % UNK 07/05/2019 12:00:00 AM EDT active Alcohol Prep Pad 70 % eCW1 ([facility]) Alcohol Prep Pad 70 % UNK 07/05/2019 12:00:00 AM EDT active as directed eCW1 ([facility]) Alcohol Prep Pad 70 % UNK 07/05/2019 12:00:00 AM EDT active Alcohol Prep Pad 70 % eCW1 ([facility]) Alcohol Prep Pad 70 % UNK 07/05/2019 12:00:00 AM EDT active Alcohol Prep Pad 70 % eCW1 ([facility]) Alcohol Prep Pad 70 % UNK 07/05/2019 12:00:00 AM EDT active Alcohol Prep Pad 70 % eCW1 ([facility]) Alcohol Prep Pad 70 % UNK 07/05/2019 12:00:00 AM EDT active Alcohol Prep Pad 70 % eCW1 ([facility]) Alcohol Prep Pad 70 % UNK 07/05/2019 12:00:00 AM EDT active Alcohol Prep Pad 70 % eCW1 ([facility]) Alcohol Prep Pad 70 % UNK 07/05/2019 12:00:00 AM EDT active Alcohol Prep Pad 70 % eCW1 ([facility]) Alcohol Prep Pad 70 % UNK 07/05/2019 12:00:00 AM EDT active Alcohol Prep Pad 70 % eCW1 ([facility]) Alcohol Prep Pad 70 % UNK 07/05/2019 12:00:00 AM EDT active Alcohol Prep Pad 70 % eCW1 ([facility]) 4 mg 07/04/2019 12:00:00 AM EDT tablet 48 TAKE 3 TABLETS BY MOUTH EVERY 3 HOURS NEEDED MAX 24TABS/DAY TAKE 3 TABLETS BY MOUTH EVERY 3 HOURS NEEDED MAX 24TABS/DAY SOLD: 07/04/2019 [facility] Metoclopramide 10 MG Oral Tablet Metoclopramide HCl 10 MG Metoclopramide HCl 10 MG 07/03/2019 12:00:00 AM EDT active Metoclopramide HCl 10 MG eCW1 ([facility] [facility]) Metoclopramide 10 MG Oral Tablet Metoclopramide HCl 10 MG Metoclopramide HCl 10 MG 07/03/2019 12:00:00 AM EDT active Metoclopramide HCl 10 MG eCW1 ([facility]) Metoclopramide 10 MG Oral Tablet Metoclopramide HCl 10 MG Metoclopramide HCl 10 MG 07/03/2019 12:00:00 AM EDT active Metoclopramide HCl 10 MG eCW1 ([facility]) ammonium lactate 120 MG/ML Topical Cream Ammonium Lact ate 12 % Ammonium Lactate 12 % 07/03/2019 12:00:00 AM EDT 1.0 {application} active Ammonium Lactate 12 % eCW1 ([facility]) Metoclopramide 10 MG Oral Tablet Metoclopramide HCl 10 MG Metoclopramide HCl 10 MG 07/03/2019 12:00:00 AM EDT active 1 tablet before meals and bedtime eCW1 ([facility]) ammonium lactate 120 MG/ML Topical Cream Ammonium Lact ate 12 % Ammonium Lactate 12 % 07/03/2019 12:00:00 AM EDT 1.0 {application} active Ammonium Lactate 12 % eCW1 ([facility]) ammonium lactate 120 MG/ML Topical Cream Ammonium Lact ate 12 % Ammonium Lactate 12 % 07/03/2019 12:00:00 AM EDT active 1 application eCW1 ([facility]) Metoclopramide 10 MG Oral Tablet Metoclopramide HCl 10 MG Metoclopramide HCl 10 MG 07/03/2019 12:00:00 AM EDT active Metoclopramide HCl 10 MG eCW1 ([facility]) ammonium lactate 120 MG/ML Topical Cream Ammonium Lact ate 12 % Ammonium Lactate 12 % 07/03/2019 12:00:00 AM EDT 1.0 {application} active Ammonium Lactate 12 % eCW1 ([facility]) ammonium lactate 120 MG/ML Topical Cream Ammonium Lact ate 12 % Ammonium Lactate 12 % 07/03/2019 12:00:00 AM EDT 1.0 {application} active Ammonium Lactate 12 % eCW1 ([facility]) Metoclopramide 10 MG Oral Tablet Metoclopramide HCl 10 MG Metoclopramide HCl 10 MG 07/03/2019 12:00:00 AM EDT active Metoclopramide HCl 10 MG eCW1 ([facility]) ammonium lactate 120 MG/ML Topical Cream Ammonium Lact ate 12 % Ammonium Lactate 12 % 07/03/2019 12:00:00 AM EDT 1.0 {application} active Ammonium Lactate 12 % eCW1 ([facility]) ammonium lactate 120 MG/ML Topical Cream Ammonium Lact ate 12 % Ammonium Lactate 12 % 07/03/2019 12:00:00 AM EDT 1.0 {application} active Ammonium Lactate 12 % eCW1 ([facility]) ammonium lactate 120 MG/ML Topical Cream Ammonium Lact ate 12 % Ammonium Lactate 12 % 07/03/2019 12:00:00 AM EDT 1.0 {application} active Ammonium Lactate 12 % eCW1 ([facility]) Metoclopramide 10 MG Oral Tablet Metoclopramide HCl 10 MG Metoclopramide HCl 10 MG 07/03/2019 12:00:00 AM EDT active Metoclopramide HCl 10 MG eCW1 ([facility]) ammonium lactate 120 MG/ML Topical Cream Ammonium Lact ate 12 % Ammonium Lactate 12 % 07/03/2019 12:00:00 AM EDT 1.0 {application} active Ammonium Lactate 12 % eCW1 ([facility]) Metoclopramide 10 MG Oral Tablet Metoclopramide HCl 10 MG Metoclopramide HCl 10 MG 07/03/2019 12:00:00 AM EDT active Metoclopramide HCl 10 MG eCW1 ([facility]) Metoclopramide 10 MG Oral Tablet Metoclopramide HCl 10 MG Metoclopramide HCl 10 MG 07/03/2019 12:00:00 AM EDT active Metoclopramide HCl 10 MG eCW1 ([facility]) ammonium lactate 120 MG/ML Topical Cream Ammonium Lact ate 12 % Ammonium Lactate 12 % 07/03/2019 12:00:00 AM EDT 1.0 {application} active Ammonium Lactate 12 % eCW1 ([facility]) ammonium lactate 120 MG/ML Topical Cream Ammonium Lact ate 12 % Ammonium Lactate 12 % 07/03/2019 12:00:00 AM EDT 1.0 {application} active Ammonium Lactate 12 % eCW1 ([facility]) Metoclopramide 10 MG Oral Tablet Metoclopramide HCl 10 MG Metoclopramide HCl 10 MG 07/03/2019 12:00:00 AM EDT active Metoclopramide HCl 10 MG eCW1 ([facility]) Metoclopramide 10 MG Oral Tablet Metoclopramide HCl 10 MG Metoclopramide HCl 10 MG 07/03/2019 12:00:00 AM EDT active Metoclopramide HCl 10 MG eCW1 ([facility]) ammonium lactate 120 MG/ML Topical Cream Ammonium Lact ate 12 % Ammonium Lactate 12 % 07/03/2019 12:00:00 AM EDT 1.0 {application} active Ammonium Lactate 12 % eCW1 ([facility]) ammonium lactate 120 MG/ML Topical Cream Ammonium Lact ate 12 % Ammonium Lactate 12 % 07/03/2019 12:00:00 AM EDT 1.0 {application} active Ammonium Lactate 12 % eCW1 ([facility]) Metoclopramide 10 MG Oral Tablet Metoclopramide HCl 10 MG Metoclopramide HCl 10 MG 07/03/2019 12:00:00 AM EDT active Metoclopramide HCl 10 MG eCW1 ([facility]) Metoclopramide 10 MG Oral Tablet Metoclopramide HCl 10 MG Metoclopramide HCl 10 MG 07/03/2019 12:00:00 AM EDT active Metoclopramide HCl 10 MG eCW1 ([facility]) ammonium lactate 120 MG/ML Topical Cream Ammonium Lact ate 12 % Ammonium Lactate 12 % 07/03/2019 12:00:00 AM EDT 1.0 {application} active Ammonium Lactate 12 % eCW1 ([facility]) ammonium lactate 120 MG/ML Topical Cream Ammonium Lact ate 12 % Ammonium Lactate 12 % 07/03/2019 12:00:00 AM EDT 1.0 {application} active Ammonium Lactate 12 % eCW1 ([facility]) ammonium lactate 120 MG/ML Topical Cream Ammonium Lact ate 12 % Ammonium Lactate 12 % 07/03/2019 12:00:00 AM EDT active 1 application eCW1 ([facility]) Metoclopramide 10 MG Oral Tablet Metoclopramide HCl 10 MG Metoclopramide HCl 10 MG 07/03/2019 12:00:00 AM EDT active Metoclopramide HCl 10 MG eCW1 ([facility]) ammonium lactate 120 MG/ML Topical Cream Ammonium Lact ate 12 % Ammonium Lactate 12 % 07/03/2019 12:00:00 AM EDT 1.0 {application} active Ammonium Lactate 12 % eCW1 ([facility]) ammonium lactate 120 MG/ML Topical Cream Ammonium Lact ate 12 % Ammonium Lactate 12 % 07/03/2019 12:00:00 AM EDT 1.0 {application} active Ammonium Lactate 12 % eCW1 ([facility]) Metoclopramide 10 MG Oral Tablet Metoclopramide HCl 10 MG Metoclopramide HCl 10 MG 07/03/2019 12:00:00 AM EDT active Metoclopramide HCl 10 MG eCW1 ([facility]) ammonium lactate 120 MG/ML Topical Cream Ammonium Lact ate 12 % Ammonium Lactate 12 % 07/03/2019 12:00:00 AM EDT 1.0 {application} active Ammonium Lactate 12 % eCW1 ([facility]) ammonium lactate 120 MG/ML Topical Cream Ammonium Lact ate 12 % Ammonium Lactate 12 % 07/03/2019 12:00:00 AM EDT 1.0 {application} active Ammonium Lactate 12 % eCW1 ([facility]) Hydromorphone Hydrochloride 4 MG Oral Tablet Hydromorp nellie HCl 4 MG Hydromorphone HCl 4 MG 07/03/2019 12:00:00 AM EDT active 3 tablets eCW1 ([facility]) Metoclopramide 10 MG Oral Tablet Metoclopramide HCl 10 MG Metoclopramide HCl 10 MG 07/03/2019 12:00:00 AM EDT active Metoclopramide HCl 10 MG eCW1 ([facility]) Metoclopramide 10 MG Oral Tablet Metoclopramide HCl 10 MG Metoclopramide HCl 10 MG 07/03/2019 12:00:00 AM EDT active Metoclopramide HCl 10 MG eCW1 ([facility]) Metoclopramide 10 MG Oral Tablet Metoclopramide HCl 10 MG Metoclopramide HCl 10 MG 07/03/2019 12:00:00 AM EDT active Metoclopramide HCl 10 MG eCW1 ([facility]) Metoclopramide 10 MG Oral Tablet Metoclopramide HCl 10 MG Metoclopramide HCl 10 MG 07/03/2019 12:00:00 AM EDT active Metoclopramide HCl 10 MG eCW1 ([facility]) Metoclopramide 10 MG Oral Tablet Metoclopramide HCl 10 MG Metoclopramide HCl 10 MG 07/03/2019 12:00:00 AM EDT active Metoclopramide HCl 10 MG eCW1 ([facility]) Metoclopramide 10 MG Oral Tablet Metoclopramide HCl 10 MG Metoclopramide HCl 10 MG 07/03/2019 12:00:00 AM EDT active 1 tablet before meals and bedtime eCW1 ([facility]) Metoclopramide 10 MG Oral Tablet Metoclopramide HCl 10 MG Metoclopramide HCl 10 MG 07/03/2019 12:00:00 AM EDT active Metoclopramide HCl 10 MG eCW1 ([facility]) ammonium lactate 120 MG/ML Topical Cream Ammonium Lact ate 12 % Ammonium Lactate 12 % 07/03/2019 12:00:00 AM EDT 1.0 {application} active Ammonium Lactate 12 % eCW1 ([facility]) ammonium lactate 120 MG/ML Topical Cream Ammonium Lact ate 12 % Ammonium Lactate 12 % 07/03/2019 12:00:00 AM EDT 1.0 {application} active Ammonium Lactate 12 % eCW1 ([facility]) ammonium lactate 120 MG/ML Topical Cream Ammonium Lact ate 12 % Ammonium Lactate 12 % 07/03/2019 12:00:00 AM EDT 1.0 {application} active Ammonium Lactate 12 % eCW1 ([facility]) Metoclopramide 10 MG Oral Tablet Metoclopramide HCl 10 MG Metoclopramide HCl 10 MG 07/03/2019 12:00:00 AM EDT active Metoclopramide HCl 10 MG eCW1 ([facility]) Metoclopramide 10 MG Oral Tablet Metoclopramide HCl 10 MG Metoclopramide HCl 10 MG 07/03/2019 12:00:00 AM EDT active Metoclopramide HCl 10 MG eCW1 ([facility]) ammonium lactate 120 MG/ML Topical Cream Ammonium Lact ate 12 % Ammonium Lactate 12 % 07/03/2019 12:00:00 AM EDT 1.0 {application} active Ammonium Lactate 12 % eCW1 ([facility]) Metoclopramide 10 MG Oral Tablet Metoclopramide HCl 10 MG Metoclopramide HCl 10 MG 07/03/2019 12:00:00 AM EDT active Metoclopramide HCl 10 MG eCW1 ([facility]) Metoclopramide 10 MG Oral Tablet Metoclopramide HCl 10 MG Metoclopramide HCl 10 MG 07/03/2019 12:00:00 AM EDT active Metoclopramide HCl 10 MG eCW1 ([facility]) Hydromorphone Hydrochloride 4 MG Oral Tablet Hydromorp nellie HCl 4 MG Hydromorphone HCl 4 MG 07/03/2019 12:00:00 AM EDT active 3 tablets eCW1 ([facility]) ammonium lactate 120 MG/ML Topical Cream Ammonium Lact ate 12 % Ammonium Lactate 12 % 07/03/2019 12:00:00 AM EDT 1.0 {application} active Ammonium Lactate 12 % eCW1 ([facility]) ammonium lactate 120 MG/ML Topical Cream Ammonium Lact ate 12 % Ammonium Lactate 12 % 07/03/2019 12:00:00 AM EDT 1.0 {application} active Ammonium Lactate 12 % eCW1 ([facility]) Metoclopramide HCl 5 MG/5ML Metoclopramide HCl 5 MG/5ML 06/13 12:00:00 AM EDT suspended 10 mg (10ml) e CW1 ([facility]) ammonium lactate 120 MG/ML Topical Cream Ammonium Lact ate 12 % Ammonium Lactate 12 % 07/03/2019 12:00:00 AM EDT 1.0 {application} active Ammonium Lactate 12 % eCW1 ([facility]) Metoclopramide 10 MG Oral Tablet Metoclopramide HCl 10 MG Metoclopramide HCl 10 MG 07/03/2019 12:00:00 AM EDT active Metoclopramide HCl 10 MG eCW1 ([facility]) Metoclopramide 10 MG Oral Tablet Metoclopramide HCl 10 MG Metoclopramide HCl 10 MG 07/03/2019 12:00:00 AM EDT active Metoclopramide HCl 10 MG eCW1 ([facility]) Metoclopramide 10 MG Oral Tablet Metoclopramide HCl 10 MG Metoclopramide HCl 10 MG 07/03/2019 12:00:00 AM EDT active Metoclopramide HCl 10 MG eCW1 ([facility]) ammonium lactate 120 MG/ML Topical Cream Ammonium Lact ate 12 % Ammonium Lactate 12 % 07/03/2019 12:00:00 AM EDT 1.0 {application} active Ammonium Lactate 12 % eCW1 ([facility]) Metoclopramide 10 MG Oral Tablet Metoclopramide HCl 10 MG Metoclopramide HCl 10 MG 07/03/2019 12:00:00 AM EDT active Metoclopramide HCl 10 MG eCW1 ([facility]) Metoclopramide 10 MG Oral Tablet Metoclopramide HCl 10 MG Metoclopramide HCl 10 MG 07/03/2019 12:00:00 AM EDT active Metoclopramide HCl 10 MG eCW1 ([facility]) ammonium lactate 120 MG/ML Topical Cream Ammonium Lact ate 12 % Ammonium Lactate 12 % 07/03/2019 12:00:00 AM EDT 1.0 {application} active Ammonium Lactate 12 % eCW1 ([facility]) Metoclopramide 10 MG Oral Tablet Metoclopramide HCl 10 MG Metoclopramide HCl 10 MG 07/03/2019 12:00:00 AM EDT active Metoclopramide HCl 10 MG eCW1 ([facility]) Metoclopramide 10 MG Oral Tablet Metoclopramide HCl 10 MG Metoclopramide HCl 10 MG 07/03/2019 12:00:00 AM EDT active Metoclopramide HCl 10 MG eCW1 ([facility]) ammonium lactate 120 MG/ML Topical Cream Ammonium Lact ate 12 % Ammonium Lactate 12 % 07/03/2019 12:00:00 AM EDT 1.0 {application} active Ammonium Lactate 12 % eCW1 ([facility]) Metoclopramide 10 MG Oral Tablet Metoclopramide HCl 10 MG Metoclopramide HCl 10 MG 07/03/2019 12:00:00 AM EDT active Metoclopramide HCl 10 MG eCW1 ([facility]) Metoclopramide 10 MG Oral Tablet Metoclopramide HCl 10 MG Metoclopramide HCl 10 MG 07/03/2019 12:00:00 AM EDT active Metoclopramide HCl 10 MG eCW1 ([facility]) Metoclopramide 10 MG Oral Tablet Metoclopramide HCl 10 MG Metoclopramide HCl 10 MG 07/03/2019 12:00:00 AM EDT active Metoclopramide HCl 10 MG eCW1 ([facility]) ammonium lactate 120 MG/ML Topical Cream Ammonium Lact ate 12 % Ammonium Lactate 12 % 07/03/2019 12:00:00 AM EDT 1.0 {application} active Ammonium Lactate 12 % eCW1 ([facility]) Metoclopramide 10 MG Oral Tablet Metoclopramide HCl 10 MG Metoclopramide HCl 10 MG 07/03/2019 12:00:00 AM EDT active 1 tablet before meals and bedtime eCW1 ([facility]) ammonium lactate 120 MG/ML Topical Cream Ammonium Lact ate 12 % Ammonium Lactate 12 % 07/03/2019 12:00:00 AM EDT 1.0 {application} active Ammonium Lactate 12 % eCW1 ([facility]) Metoclopramide 10 MG Oral Tablet Metoclopramide HCl 10 MG Metoclopramide HCl 10 MG 07/03/2019 12:00:00 AM EDT active Metoclopramide HCl 10 MG eCW1 ([facility]) ammonium lactate 120 MG/ML Topical Cream Ammonium Lact ate 12 % Ammonium Lactate 12 % 07/03/2019 12:00:00 AM EDT 1.0 {application} active Ammonium Lactate 12 % eCW1 ([facility]) Metoclopramide HCl 5 MG/5ML Metoclopramide HCl 5 MG/5ML 06/13 12:00:00 AM EDT active 10 mg (10ml) eCW1 ([facility]) Metoclopramide 10 MG Oral Tablet Metoclopramide HCl 10 MG Metoclopramide HCl 10 MG 07/03/2019 12:00:00 AM EDT active Metoclopramide HCl 10 MG eCW1 ([facility]) Metoclopramide 10 MG Oral Tablet Metoclopramide HCl 10 MG Metoclopramide HCl 10 MG 07/03/2019 12:00:00 AM EDT active Metoclopramide HCl 10 MG eCW1 ([facility]) ammonium lactate 120 MG/ML Topical Cream Ammonium Lact ate 12 % Ammonium Lactate 12 % 07/03/2019 12:00:00 AM EDT 1.0 {application} active Ammonium Lactate 12 % eCW1 ([facility]) ammonium lactate 120 MG/ML Topical Cream Ammonium Lact ate 12 % Ammonium Lactate 12 % 07/03/2019 12:00:00 AM EDT 1.0 {application} active Ammonium Lactate 12 % eCW1 ([facility]) Metoclopramide 10 MG Oral Tablet Metoclopramide HCl 10 MG Metoclopramide HCl 10 MG 07/03/2019 12:00:00 AM EDT active Metoclopramide HCl 10 MG eCW1 ([facility]) ammonium lactate 120 MG/ML Topical Cream Ammonium Lact ate 12 % Ammonium Lactate 12 % 07/03/2019 12:00:00 AM EDT 1.0 {application} active Ammonium Lactate 12 % eCW1 ([facility]) ammonium lactate 120 MG/ML Topical Cream Ammonium Lact ate 12 % Ammonium Lactate 12 % 07/03/2019 12:00:00 AM EDT 1.0 {application} active Ammonium Lactate 12 % eCW1 ([facility]) ammonium lactate 120 MG/ML Topical Cream Ammonium Lact ate 12 % Ammonium Lactate 12 % 07/03/2019 12:00:00 AM EDT 1.0 {application} active Ammonium Lactate 12 % eCW1 ([facility]) Metoclopramide 10 MG Oral Tablet Metoclopramide HCl 10 MG Metoclopramide HCl 10 MG 07/03/2019 12:00:00 AM EDT active Metoclopramide HCl 10 MG eCW1 ([facility]) ammonium lactate 120 MG/ML Topical Cream Ammonium Lact ate 12 % Ammonium Lactate 12 % 07/03/2019 12:00:00 AM EDT active 1 application eCW1 ([facility]) Metoclopramide 10 MG Oral Tablet Metoclopramide HCl 10 MG Metoclopramide HCl 10 MG 07/03/2019 12:00:00 AM EDT active Metoclopramide HCl 10 MG eCW1 ([facility]) Metoclopramide 10 MG Oral Tablet Metoclopramide HCl 10 MG Metoclopramide HCl 10 MG 07/03/2019 12:00:00 AM EDT active Metoclopramide HCl 10 MG eCW1 ([facility]) ammonium lactate 120 MG/ML Topical Cream Ammonium Lact ate 12 % Ammonium Lactate 12 % 07/03/2019 12:00:00 AM EDT 1.0 {application} active Ammonium Lactate 12 % eCW1 ([facility]) Metoclopramide 10 MG Oral Tablet Metoclopramide HCl 10 MG Metoclopramide HCl 10 MG 07/03/2019 12:00:00 AM EDT active Metoclopramide HCl 10 MG eCW1 ([facility]) Metoclopramide HCl 5 MG/5ML Metoclopramide HCl 5 MG/5ML 06/13 12:00:00 AM EDT suspended 10 mg (10ml) e CW1 ([facility]) ammonium lactate 120 MG/ML Topical Cream Ammonium Lact ate 12 % Ammonium Lactate 12 % 07/03/2019 12:00:00 AM EDT 1.0 {application} active Ammonium Lactate 12 % eCW1 ([facility]) Metoclopramide HCl 5 MG/5ML Metoclopramide HCl 5 MG/5ML 06/13 12:00:00 AM EDT suspended 10 mg (10ml) e CW1 ([facility]) ammonium lactate 120 MG/ML Topical Cream Ammonium Lact ate 12 % Ammonium Lactate 12 % 07/03/2019 12:00:00 AM EDT 1.0 {application} active Ammonium Lactate 12 % eCW1 ([facility]) ammonium lactate 120 MG/ML Topical Cream Ammonium Lact ate 12 % Ammonium Lactate 12 % 07/03/2019 12:00:00 AM EDT 1.0 {application} active Ammonium Lactate 12 % eCW1 ([facility]) ammonium lactate 120 MG/ML Topical Cream Ammonium Lact ate 12 % Ammonium Lactate 12 % 07/03/2019 12:00:00 AM EDT 1.0 {application} active Ammonium Lactate 12 % eCW1 ([facility]) Metoclopramide 10 MG Oral Tablet Metoclopramide HCl 10 MG Metoclopramide HCl 10 MG 07/03/2019 12:00:00 AM EDT active Metoclopramide HCl 10 MG eCW1 ([facility]) Metoclopramide 10 MG Oral Tablet Metoclopramide HCl 10 MG Metoclopramide HCl 10 MG 07/03/2019 12:00:00 AM EDT active Metoclopramide HCl 10 MG eCW1 ([facility]) Metoclopramide 10 MG Oral Tablet Metoclopramide HCl 10 MG Metoclopramide HCl 10 MG 07/03/2019 12:00:00 AM EDT active Metoclopramide HCl 10 MG eCW1 ([facility]) Metoclopramide 10 MG Oral Tablet Metoclopramide HCl 10 MG Metoclopramide HCl 10 MG 07/03/2019 12:00:00 AM EDT active Metoclopramide HCl 10 MG eCW1 ([facility]) ammonium lactate 120 MG/ML Topical Cream Ammonium Lact ate 12 % Ammonium Lactate 12 % 07/03/2019 12:00:00 AM EDT 1.0 {application} active Ammonium Lactate 12 % eCW1 ([facility]) ammonium lactate 120 MG/ML Topical Cream Ammonium Lact ate 12 % Ammonium Lactate 12 % 07/03/2019 12:00:00 AM EDT 1.0 {application} active Ammonium Lactate 12 % eCW1 ([facility]) Metoclopramide 10 MG Oral Tablet Metoclopramide HCl 10 MG Metoclopramide HCl 10 MG 07/03/2019 12:00:00 AM EDT active Metoclopramide HCl 10 MG eCW1 ([facility]) ammonium lactate 120 MG/ML Topical Cream Ammonium Lact ate 12 % Ammonium Lactate 12 % 07/03/2019 12:00:00 AM EDT 1.0 {application} active Ammonium Lactate 12 % eCW1 ([facility]) Metoclopramide HCl 5 MG/5ML Metoclopramide HCl 5 MG/5ML 06/13 12:00:00 AM EDT suspended 10 mg (10ml) e CW1 ([facility]) Metoclopramide 10 MG Oral Tablet Metoclopramide HCl 10 MG Metoclopramide HCl 10 MG 07/03/2019 12:00:00 AM EDT active Metoclopramide HCl 10 MG eCW1 ([facility]) ammonium lactate 120 MG/ML Topical Cream Ammonium Lact ate 12 % Ammonium Lactate 12 % 07/03/2019 12:00:00 AM EDT 1.0 {application} active Ammonium Lactate 12 % eCW1 ([facility]) Metoclopramide 10 MG Oral Tablet Metoclopramide HCl 10 MG Metoclopramide HCl 10 MG 07/03/2019 12:00:00 AM EDT active Metoclopramide HCl 10 MG eCW1 ([facility]) Metoclopramide 10 MG Oral Tablet Metoclopramide HCl 10 MG Metoclopramide HCl 10 MG 07/03/2019 12:00:00 AM EDT active Metoclopramide HCl 10 MG eCW1 ([facility]) ammonium lactate 120 MG/ML Topical Cream Ammonium Lact ate 12 % Ammonium Lactate 12 % 07/03/2019 12:00:00 AM EDT 1.0 {application} active Ammonium Lactate 12 % eCW1 ([facility]) ammonium lactate 120 MG/ML Topical Cream Ammonium Lact ate 12 % Ammonium Lactate 12 % 07/03/2019 12:00:00 AM EDT 1.0 {application} active Ammonium Lactate 12 % eCW1 ([facility]) Metoclopramide 10 MG Oral Tablet Metoclopramide HCl 10 MG Metoclopramide HCl 10 MG 07/03/2019 12:00:00 AM EDT active Metoclopramide HCl 10 MG eCW1 ([facility]) Metoclopramide 10 MG Oral Tablet Metoclopramide HCl 10 MG Metoclopramide HCl 10 MG 07/03/2019 12:00:00 AM EDT active Metoclopramide HCl 10 MG eCW1 ([facility]) ammonium lactate 120 MG/ML Topical Cream Ammonium Lact ate 12 % Ammonium Lactate 12 % 07/03/2019 12:00:00 AM EDT active 1 application eCW1 ([facility]) Metoclopramide 10 MG Oral Tablet Metoclopramide HCl 10 MG Metoclopramide HCl 10 MG 07/03/2019 12:00:00 AM EDT active Metoclopramide HCl 10 MG eCW1 ([facility]) ammonium lactate 120 MG/ML Topical Cream Ammonium Lact ate 12 % Ammonium Lactate 12 % 07/03/2019 12:00:00 AM EDT 1.0 {application} active Ammonium Lactate 12 % eCW1 ([facility]) ammonium lactate 120 MG/ML Topical Cream Ammonium Lact ate 12 % Ammonium Lactate 12 % 07/03/2019 12:00:00 AM EDT 1.0 {application} active Ammonium Lactate 12 % eCW1 ([facility]) Metoclopramide 10 MG Oral Tablet Metoclopramide HCl 10 MG Metoclopramide HCl 10 MG 07/03/2019 12:00:00 AM EDT active Metoclopramide HCl 10 MG eCW1 ([facility]) Metoclopramide 10 MG Oral Tablet Metoclopramide HCl 10 MG Metoclopramide HCl 10 MG 07/03/2019 12:00:00 AM EDT active Metoclopramide HCl 10 MG eCW1 ([facility]) ammonium lactate 120 MG/ML Topical Cream Ammonium Lact ate 12 % Ammonium Lactate 12 % 07/03/2019 12:00:00 AM EDT 1.0 {application} active Ammonium Lactate 12 % eCW1 ([facility]) Metoclopramide 10 MG Oral Tablet Metoclopramide HCl 10 MG Metoclopramide HCl 10 MG 07/03/2019 12:00:00 AM EDT active Metoclopramide HCl 10 MG eCW1 ([facility]) Metoclopramide 10 MG Oral Tablet Metoclopramide HCl 10 MG Metoclopramide HCl 10 MG 07/03/2019 12:00:00 AM EDT active Metoclopramide HCl 10 MG eCW1 ([facility]) Metoclopramide 10 MG Oral Tablet Metoclopramide HCl 10 MG Metoclopramide HCl 10 MG 07/03/2019 12:00:00 AM EDT active Metoclopramide HCl 10 MG eCW1 ([facility]) ammonium lactate 120 MG/ML Topical Cream Ammonium Lact ate 12 % Ammonium Lactate 12 % 07/03/2019 12:00:00 AM EDT 1.0 {application} active Ammonium Lactate 12 % eCW1 ([facility]) ammonium lactate 120 MG/ML Topical Cream Ammonium Lact ate 12 % Ammonium Lactate 12 % 07/03/2019 12:00:00 AM EDT 1.0 {application} active Ammonium Lactate 12 % eCW1 ([facility]) Metoclopramide 10 MG Oral Tablet Metoclopramide HCl 10 MG Metoclopramide HCl 10 MG 07/03/2019 12:00:00 AM EDT active Metoclopramide HCl 10 MG eCW1 ([facility]) ammonium lactate 120 MG/ML Topical Cream Ammonium Lact ate 12 % Ammonium Lactate 12 % 07/03/2019 12:00:00 AM EDT 1.0 {application} active Ammonium Lactate 12 % eCW1 ([facility]) ammonium lactate 120 MG/ML Topical Cream Ammonium Lact ate 12 % Ammonium Lactate 12 % 07/03/2019 12:00:00 AM EDT 1.0 {application} active Ammonium Lactate 12 % eCW1 ([facility]) ammonium lactate 120 MG/ML Topical Cream Ammonium Lact ate 12 % Ammonium Lactate 12 % 07/03/2019 12:00:00 AM EDT 1.0 {application} active Ammonium Lactate 12 % eCW1 ([facility]) ammonium lactate 120 MG/ML Topical Cream Ammonium Lact ate 12 % Ammonium Lactate 12 % 07/03/2019 12:00:00 AM EDT 1.0 {application} active Ammonium Lactate 12 % eCW1 ([facility]) ammonium lactate 120 MG/ML Topical Cream Ammonium Lact ate 12 % Ammonium Lactate 12 % 07/03/2019 12:00:00 AM EDT 1.0 {application} active Ammonium Lactate 12 % eCW1 ([facility]) ammonium lactate 120 MG/ML Topical Cream Ammonium Lact ate 12 % Ammonium Lactate 12 % 07/03/2019 12:00:00 AM EDT active 1 application eCW1 ([facility]) ammonium lactate 120 MG/ML Topical Cream Ammonium Lact ate 12 % Ammonium Lactate 12 % 07/03/2019 12:00:00 AM EDT active 1 application eCW1 ([facility]) Metoclopramide 10 MG Oral Tablet Metoclopramide HCl 10 MG Metoclopramide HCl 10 MG 07/03/2019 12:00:00 AM EDT active Metoclopramide HCl 10 MG eCW1 ([facility]) ammonium lactate 120 MG/ML Topical Cream Ammonium Lact ate 12 % Ammonium Lactate 12 % 07/03/2019 12:00:00 AM EDT 1.0 {application} active Ammonium Lactate 12 % eCW1 ([facility]) Metoclopramide 10 MG Oral Tablet Metoclopramide HCl 10 MG Metoclopramide HCl 10 MG 07/03/2019 12:00:00 AM EDT active Metoclopramide HCl 10 MG eCW1 ([facility]) ammonium lactate 120 MG/ML Topical Cream Ammonium Lact ate 12 % Ammonium Lactate 12 % 07/03/2019 12:00:00 AM EDT 1.0 {application} active Ammonium Lactate 12 % eCW1 ([facility]) Metoclopramide 10 MG Oral Tablet Metoclopramide HCl 10 MG Metoclopramide HCl 10 MG 07/03/2019 12:00:00 AM EDT active Metoclopramide HCl 10 MG eCW1 ([facility]) ammonium lactate 120 MG/ML Topical Cream Ammonium Lact ate 12 % Ammonium Lactate 12 % 07/03/2019 12:00:00 AM EDT 1.0 {application} active Ammonium Lactate 12 % eCW1 ([facility]) ammonium lactate 120 MG/ML Topical Cream Ammonium Lact ate 12 % Ammonium Lactate 12 % 07/03/2019 12:00:00 AM EDT active 1 application eCW1 ([facility]) ammonium lactate 120 MG/ML Topical Cream Ammonium Lact ate 12 % Ammonium Lactate 12 % 07/03/2019 12:00:00 AM EDT 1.0 {application} active Ammonium Lactate 12 % eCW1 ([facility]) Metoclopramide 10 MG Oral Tablet Metoclopramide HCl 10 MG Metoclopramide HCl 10 MG 07/03/2019 12:00:00 AM EDT active 1 tablet before meals and bedtime eCW1 ([facility]) Metoclopramide 10 MG Oral Tablet Metoclopramide HCl 10 MG Metoclopramide HCl 10 MG 07/03/2019 12:00:00 AM EDT active Metoclopramide HCl 10 MG eCW1 ([facility]) ammonium lactate 120 MG/ML Topical Cream Ammonium Lact ate 12 % Ammonium Lactate 12 % 07/03/2019 12:00:00 AM EDT 1.0 {application} active Ammonium Lactate 12 % eCW1 ([facility]) ammonium lactate 120 MG/ML Topical Cream Ammonium Lact ate 12 % Ammonium Lactate 12 % 07/03/2019 12:00:00 AM EDT 1.0 {application} active Ammonium Lactate 12 % eCW1 ([facility]) Metoclopramide 10 MG Oral Tablet Metoclopramide HCl 10 MG Metoclopramide HCl 10 MG 07/03/2019 12:00:00 AM EDT active Metoclopramide HCl 10 MG eCW1 ([facility]) Metoclopramide 10 MG Oral Tablet Metoclopramide HCl 10 MG Metoclopramide HCl 10 MG 07/03/2019 12:00:00 AM EDT active Metoclopramide HCl 10 MG eCW1 ([facility]) ammonium lactate 120 MG/ML Topical Cream Ammonium Lact ate 12 % Ammonium Lactate 12 % 07/03/2019 12:00:00 AM EDT 1.0 {application} active Ammonium Lactate 12 % eCW1 ([facility]) ammonium lactate 120 MG/ML Topical Cream Ammonium Lact ate 12 % Ammonium Lactate 12 % 07/03/2019 12:00:00 AM EDT 1.0 {application} active Ammonium Lactate 12 % eCW1 ([facility]) Metoclopramide 10 MG Oral Tablet Metoclopramide HCl 10 MG Metoclopramide HCl 10 MG 07/03/2019 12:00:00 AM EDT active 1 tablet before meals and bedtime eCW1 ([facility]) Metoclopramide 10 MG Oral Tablet Metoclopramide HCl 10 MG Metoclopramide HCl 10 MG 07/03/2019 12:00:00 AM EDT active Metoclopramide HCl 10 MG eCW1 ([facility]) Metoclopramide 10 MG Oral Tablet Metoclopramide HCl 10 MG Metoclopramide HCl 10 MG 07/03/2019 12:00:00 AM EDT active 1 tablet before meals and bedtime eCW1 ([facility]) Metoclopramide 10 MG Oral Tablet Metoclopramide HCl 10 MG Metoclopramide HCl 10 MG 07/03/2019 12:00:00 AM EDT active 1 tablet before meals and bedtime eCW1 ([facility]) Metoclopramide 10 MG Oral Tablet Metoclopramide HCl 10 MG Metoclopramide HCl 10 MG 07/03/2019 12:00:00 AM EDT active Metoclopramide HCl 10 MG eCW1 ([facility]) ammonium lactate 120 MG/ML Topical Cream Ammonium Lact ate 12 % Ammonium Lactate 12 % 07/03/2019 12:00:00 AM EDT active 1 application eCW1 ([facility]) ammonium lactate 120 MG/ML Topical Cream Ammonium Lact ate 12 % Ammonium Lactate 12 % 07/03/2019 12:00:00 AM EDT 1.0 {application} active Ammonium Lactate 12 % eCW1 ([facility]) ammonium lactate 120 MG/ML Topical Cream Ammonium Lact ate 12 % Ammonium Lactate 12 % 07/03/2019 12:00:00 AM EDT 1.0 {application} active Ammonium Lactate 12 % eCW1 ([facility]) ammonium lactate 120 MG/ML Topical Cream Ammonium Lact ate 12 % Ammonium Lactate 12 % 07/03/2019 12:00:00 AM EDT 1.0 {application} active Ammonium Lactate 12 % eCW1 ([facility]) ammonium lactate 120 MG/ML Topical Cream Ammonium Lact ate 12 % Ammonium Lactate 12 % 07/03/2019 12:00:00 AM EDT 1.0 {application} active Ammonium Lactate 12 % eCW1 ([facility]) Metoclopramide 10 MG Oral Tablet Metoclopramide HCl 10 MG Metoclopramide HCl 10 MG 07/03/2019 12:00:00 AM EDT active 1 tablet before meals and bedtime eCW1 ([facility]) ammonium lactate 120 MG/ML Topical Cream Ammonium Lact ate 12 % Ammonium Lactate 12 % 07/03/2019 12:00:00 AM EDT 1.0 {application} active Ammonium Lactate 12 % eCW1 ([facility]) ammonium lactate 120 MG/ML Topical Cream Ammonium Lact ate 12 % Ammonium Lactate 12 % 07/03/2019 12:00:00 AM EDT 1.0 {application} active Ammonium Lactate 12 % eCW1 ([facility]) ammonium lactate 120 MG/ML Topical Cream Ammonium Lact ate 12 % Ammonium Lactate 12 % 07/03/2019 12:00:00 AM EDT 1.0 {application} active Ammonium Lactate 12 % eCW1 ([facility]) ammonium lactate 120 MG/ML Topical Cream Ammonium Lact ate 12 % Ammonium Lactate 12 % 07/03/2019 12:00:00 AM EDT 1.0 {application} active Ammonium Lactate 12 % eCW1 ([facility]) Metoclopramide 10 MG Oral Tablet Metoclopramide HCl 10 MG Metoclopramide HCl 10 MG 07/03/2019 12:00:00 AM EDT active Metoclopramide HCl 10 MG eCW1 ([facility]) Metoclopramide 10 MG Oral Tablet Metoclopramide HCl 10 MG Metoclopramide HCl 10 MG 07/03/2019 12:00:00 AM EDT active Metoclopramide HCl 10 MG eCW1 ([facility]) Metoclopramide 10 MG Oral Tablet Metoclopramide HCl 10 MG Metoclopramide HCl 10 MG 07/03/2019 12:00:00 AM EDT active Metoclopramide HCl 10 MG eCW1 ([facility]) Metoclopramide 10 MG Oral Tablet Metoclopramide HCl 10 MG Metoclopramide HCl 10 MG 07/03/2019 12:00:00 AM EDT active Metoclopramide HCl 10 MG eCW1 ([facility]) Metoclopramide 10 MG Oral Tablet Metoclopramide HCl 10 MG Metoclopramide HCl 10 MG 07/03/2019 12:00:00 AM EDT active Metoclopramide HCl 10 MG eCW1 ([facility]) Metoclopramide 10 MG Oral Tablet Metoclopramide HCl 10 MG Metoclopramide HCl 10 MG 07/03/2019 12:00:00 AM EDT active Metoclopramide HCl 10 MG eCW1 ([facility]) 4 mg 06/25/2019 12:00:00 AM EDT tablet [...] TABLET BY MOUTH EVERY DAY SOLD: 01/28/2020 [facility] BLOOD-GLUCOSE METER 06/25/2019 12:00:00 AM EDT [...] 06/24/2019 12:00:00 AM EDT active Glucometer eCW1 ([facility]) Test Strips - UNK 06/24/2019 12:00:00 AM EDT acti ve Test Strips - eCW1 ([facility]) Lancets Misc. - UNK 06/24/2019 12:00:00 AM EDT active Lancets Misc. - eCW1 ([facility]) Lancets Misc. - UNK 06/24/2019 12:00:00 AM EDT active Lancets Misc. - eCW1 ([facility]) Lancets Misc. - UNK 06/24/2019 12:00:00 AM EDT active Lancets Misc. - eCW1 ([facility]) Glucometer UNK 06/24/2019 12:00:00 AM EDT active testing 4 times a day and as needed eCW1 ([facility]) Lancets Misc. - UNK 06/24/2019 12:00:00 AM EDT active Lancets Misc. - eCW1 ([facility]) Glucometer UNK 06/24/2019 12:00:00 AM EDT active Glucometer eCW1 ([facility]) Lancets Misc. - UNK 06/24/2019 12:00:00 AM EDT active Lancets Misc. - eCW1 ([facility]) Test Strips - UNK 06/24/2019 12:00:00 AM EDT acti ve Test Strips - eCW1 ([facility]) Test Strips - UNK 06/24/2019 12:00:00 AM EDT acti ve Test Strips - eCW1 ([facility]) Glucometer UNK 06/24/2019 12:00:00 AM EDT active Glucometer eCW1 ([facility]) Test Strips - UNK 06/24/2019 12:00:00 AM EDT acti ve Test Strips - eCW1 ([facility]) Glucometer UNK 06/24/2019 12:00:00 AM EDT active Glucometer eCW1 ([facility]) Glucometer UNK 06/24/2019 12:00:00 AM EDT active Glucometer eCW1 ([facility]) Test Strips - UNK 06/24/2019 12:00:00 AM EDT acti ve Test Strips - eCW1 ([facility]) Lancets Misc. - UNK 06/24/2019 12:00:00 AM EDT active Lancets Misc. - eCW1 ([facility]) Glucometer UNK 06/24/2019 12:00:00 AM EDT active testing 4 times a day and as needed eCW1 ([facility]) Test Strips - UNK 06/24/2019 12:00:00 AM EDT acti ve Test Strips - eCW1 ([facility]) Glucometer UNK 06/24/2019 12:00:00 AM EDT active Glucometer eCW1 ([facility]) Test Strips - UNK 06/24/2019 12:00:00 AM EDT acti ve Test Strips - eCW1 ([facility]) Test Strips - UNK 06/24/2019 12:00:00 AM EDT acti ve Test Strips - eCW1 ([facility]) Lancets Misc. - UNK 06/24/2019 12:00:00 AM EDT active Lancets Misc. - eCW1 ([facility]) Test Strips - UNK 06/24/2019 12:00:00 AM EDT acti ve Test Strips - eCW1 ([facility]) Test Strips - UNK 06/24/2019 12:00:00 AM EDT acti ve Test Strips - eCW1 ([facility]) Lancets Misc. - UNK 06/24/2019 12:00:00 AM EDT active Lancets Misc. - eCW1 ([facility]) Test Strips - UNK 06/24/2019 12:00:00 AM EDT acti ve Test Strips - eCW1 ([facility]) Test Strips - UNK 06/24/2019 12:00:00 AM EDT acti ve Test Strips - eCW1 ([facility]) Test Strips - UNK 06/24/2019 12:00:00 AM EDT acti ve Test Strips - eCW1 ([facility]) Glucometer UNK 06/24/2019 12:00:00 AM EDT active testing 4 times a day and as needed eCW1 ([facility]) Test Strips - UNK 06/24/2019 12:00:00 AM EDT acti ve Test Strips - eCW1 ([facility]) Test Strips - UNK 06/24/2019 12:00:00 AM EDT acti ve Test Strips - eCW1 ([facility]) Lancets Misc. - UNK 06/24/2019 12:00:00 AM EDT active Lancets Misc. - eCW1 ([facility]) Test Strips - UNK 06/24/2019 12:00:00 AM EDT acti ve Test Strips - eCW1 ([facility]) Glucometer UNK 06/24/2019 12:00:00 AM EDT active Glucometer eCW1 ([facility]) Test Strips - UNK 06/24/2019 12:00:00 AM EDT acti ve Test Strips - eCW1 ([facility]) Test Strips - UNK 06/24/2019 12:00:00 AM EDT acti ve Test Strips - eCW1 ([facility]) Test Strips - UNK 06/24/2019 12:00:00 AM EDT acti ve Test Strips - eCW1 ([facility]) Test Strips - UNK 06/24/2019 12:00:00 AM EDT acti ve Test Strips - eCW1 ([facility]) Lancets Misc. - UNK 06/24/2019 12:00:00 AM EDT active Lancets Misc. - eCW1 ([facility]) Test Strips - UNK 06/24/2019 12:00:00 AM EDT acti ve Test Strips - eCW1 ([facility]) Test Strips - UNK 06/24/2019 12:00:00 AM EDT acti ve Test Strips - eCW1 ([facility]) Test Strips - UNK 06/24/2019 12:00:00 AM EDT acti ve Test Strips - eCW1 ([facility]) Test Strips - UNK 06/24/2019 12:00:00 AM EDT acti ve Test Strips - eCW1 ([facility]) Test Strips - UNK 06/24/2019 12:00:00 AM EDT acti ve Test Strips - eCW1 ([facility]) Lancets Misc. - UNK 06/24/2019 12:00:00 AM EDT active Lancets Misc. - eCW1 ([facility]) Lancets Misc. - UNK 06/24/2019 12:00:00 AM EDT active Lancets Misc. - eCW1 ([facility]) Test Strips - UNK 06/24/2019 12:00:00 AM EDT acti ve Test Strips - eCW1 ([facility]) Glucometer UNK 06/24/2019 12:00:00 AM EDT active Glucometer eCW1 ([facility]) Test Strips - UNK 06/24/2019 12:00:00 AM EDT acti ve Test Strips - eCW1 ([facility]) Glucometer UNK 06/24/2019 12:00:00 AM EDT active Glucometer eCW1 ([facility]) Glucometer UNK 06/24/2019 12:00:00 AM EDT active Glucometer eCW1 ([facility]) Lancets Misc. - UNK 06/24/2019 12:00:00 AM EDT active Lancets Misc. - eCW1 ([facility]) Lancets Misc. - UNK 06/24/2019 12:00:00 AM EDT active Lancets Misc. - eCW1 ([facility]) Glucometer UNK 06/24/2019 12:00:00 AM EDT active Glucometer eCW1 ([facility]) Lancets Misc. - UNK 06/24/2019 12:00:00 AM EDT active Lancets Misc. - eCW1 ([facility]) Test Strips - UNK 06/24/2019 12:00:00 AM EDT acti ve Test Strips - eCW1 ([facility]) Lancets Misc. - UNK 06/24/2019 12:00:00 AM EDT active Lancets Misc. - eCW1 ([facility]) Test Strips - UNK 06/24/2019 12:00:00 AM EDT acti ve Test Strips - eCW1 ([facility]) Glucometer UNK 06/24/2019 12:00:00 AM EDT active Glucometer eCW1 ([facility]) Glucometer UNK 06/24/2019 12:00:00 AM EDT active Glucometer eCW1 ([facility]) Glucometer UNK 06/24/2019 12:00:00 AM EDT active Glucometer eCW1 ([facility]) Lancets Misc. - UNK 06/24/2019 12:00:00 AM EDT active Lancets Misc. - eCW1 ([facility]) Test Strips - UNK 06/24/2019 12:00:00 AM EDT acti ve - eCW1 ([facility]) Test Strips - UNK 06/24/2019 12:00:00 AM EDT acti ve Test Strips - eCW1 ([facility]) Test Strips - UNK 06/24/2019 12:00:00 AM EDT acti ve Test Strips - eCW1 ([facility]) Hydromorphone Hydrochloride 4 MG Oral Tablet Hydromorp nellie HCl 4 MG Hydromorphone HCl 4 MG 06/24/2019 12:00:00 AM EDT active 3 tablets eCW1 ([facility]) Test Strips - UNK 06/24/2019 12:00:00 AM EDT acti ve Test Strips - eCW1 ([facility]) Glucometer UNK 06/24/2019 12:00:00 AM EDT active Glucometer eCW1 ([facility]) Glucometer UNK 06/24/2019 12:00:00 AM EDT active Glucometer eCW1 ([facility]) Lancets Misc. - UNK 06/24/2019 12:00:00 AM EDT active Lancets Misc. - eCW1 ([facility]) Glucometer UNK 06/24/2019 12:00:00 AM EDT active Glucometer eCW1 ([facility]) Test Strips - UNK 06/24/2019 12:00:00 AM EDT acti ve Test Strips - eCW1 ([facility]) Glucometer UNK 06/24/2019 12:00:00 AM EDT active Glucometer eCW1 ([facility]) Lancets Misc. - UNK 06/24/2019 12:00:00 AM EDT active Lancets Misc. - eCW1 ([facility]) Test Strips - UNK 06/24/2019 12:00:00 AM EDT acti ve Test Strips - eCW1 ([facility]) Lancets Misc. - UNK 06/24/2019 12:00:00 AM EDT active Lancets Misc. - eCW1 ([facility]) Lancets Misc. - UNK 06/24/2019 12:00:00 AM EDT active Lancets Misc. - eCW1 ([facility]) Glucometer UNK 06/24/2019 12:00:00 AM EDT active Glucometer eCW1 ([facility]) Lancets Misc. - UNK 06/24/2019 12:00:00 AM EDT active Lancets Misc. - eCW1 ([facility]) Test Strips - UNK 06/24/2019 12:00:00 AM EDT acti ve Test Strips - eCW1 ([facility]) Test Strips - UNK 06/24/2019 12:00:00 AM EDT acti ve Test Strips - eCW1 ([facility]) Glucometer UNK 06/24/2019 12:00:00 AM EDT active Glucometer eCW1 ([facility]) Test Strips - UNK 06/24/2019 12:00:00 AM EDT acti ve Test Strips - eCW1 ([facility]) Glucometer UNK 06/24/2019 12:00:00 AM EDT active Glucometer eCW1 ([facility]) Glucometer UNK 06/24/2019 12:00:00 AM EDT active testing 4 times a day and as needed eCW1 ([facility]) Lancets Misc. - UNK 06/24/2019 12:00:00 AM EDT active Lancets Misc. - eCW1 ([facility]) Glucometer UNK 06/24/2019 12:00:00 AM EDT active Glucometer eCW1 ([facility]) Glucometer UNK 06/24/2019 12:00:00 AM EDT active Glucometer eCW1 ([facility]) Lancets Misc. - UNK 06/24/2019 12:00:00 AM EDT active Lancets Misc. - eCW1 ([facility]) Test Strips - UNK 06/24/2019 12:00:00 AM EDT acti ve - eCW1 ([facility]) Glucometer UNK 06/24/2019 12:00:00 AM EDT active Glucometer eCW1 ([facility]) Glucometer UNK 06/24/2019 12:00:00 AM EDT active Glucometer eCW1 ([facility]) Glucometer UNK 06/24/2019 12:00:00 AM EDT active Glucometer eCW1 ([facility]) Lancets Misc. - UNK 06/24/2019 12:00:00 AM EDT active Lancets Misc. - eCW1 ([facility]) Glucometer UNK 06/24/2019 12:00:00 AM EDT active Glucometer eCW1 ([facility]) Test Strips - UNK 06/24/2019 12:00:00 AM EDT acti ve Test Strips - eCW1 ([facility]) Test Strips - UNK 06/24/2019 12:00:00 AM EDT acti ve - eCW1 ([facility]) Glucometer UNK 06/24/2019 12:00:00 AM EDT active Glucometer eCW1 ([facility]) Glucometer UNK 06/24/2019 12:00:00 AM EDT active Glucometer eCW1 ([facility]) Lancets Misc. - UNK 06/24/2019 12:00:00 AM EDT active Lancets Misc. - eCW1 ([facility]) Glucometer UNK 06/24/2019 12:00:00 AM EDT active Glucometer eCW1 ([facility]) Test Strips - UNK 06/24/2019 12:00:00 AM EDT acti ve Test Strips - eCW1 ([facility]) Lancets Misc. - UNK 06/24/2019 12:00:00 AM EDT active Lancets Misc. - eCW1 ([facility]) Glucometer UNK 06/24/2019 12:00:00 AM EDT active Glucometer eCW1 ([facility]) Glucometer UNK 06/24/2019 12:00:00 AM EDT active Glucometer eCW1 ([facility]) Lancets Misc. - UNK 06/24/2019 12:00:00 AM EDT active Lancets Misc. - eCW1 ([facility]) Lancets Misc. - UNK 06/24/2019 12:00:00 AM EDT active Lancets Misc. - eCW1 ([facility]) Test Strips - UNK 06/24/2019 12:00:00 AM EDT acti ve Test Strips - eCW1 ([facility]) Glucometer UNK 06/24/2019 12:00:00 AM EDT active Glucometer eCW1 ([facility]) Glucometer UNK 06/24/2019 12:00:00 AM EDT active Glucometer eCW1 ([facility]) Lancets Misc. - UNK 06/24/2019 12:00:00 AM EDT active Lancets Misc. - eCW1 ([facility]) Test Strips - UNK 06/24/2019 12:00:00 AM EDT acti ve Test Strips - eCW1 ([facility]) Lancets Misc. - UNK 06/24/2019 12:00:00 AM EDT active Lancets Misc. - eCW1 ([facility]) Test Strips - UNK 06/24/2019 12:00:00 AM EDT acti ve Test Strips - eCW1 ([facility]) Glucometer UNK 06/24/2019 12:00:00 AM EDT active Glucometer eCW1 ([facility]) Glucometer UNK 06/24/2019 12:00:00 AM EDT active Glucometer eCW1 ([facility]) Test Strips - UNK 06/24/2019 12:00:00 AM EDT acti ve Test Strips - eCW1 ([facility]) Glucometer UNK 06/24/2019 12:00:00 AM EDT active Glucometer eCW1 ([facility]) Lancets Misc. - UNK 06/24/2019 12:00:00 AM EDT active Lancets Misc. - eCW1 ([facility]) Test Strips - UNK 06/24/2019 12:00:00 AM EDT acti ve Test Strips - eCW1 ([facility]) Glucometer UNK 06/24/2019 12:00:00 AM EDT active Glucometer eCW1 ([facility]) Glucometer UNK 06/24/2019 12:00:00 AM EDT active Glucometer eCW1 ([facility]) Lancets Misc. - UNK 06/24/2019 12:00:00 AM EDT active Lancets Misc. - eCW1 ([facility]) Glucometer UNK 06/24/2019 12:00:00 AM EDT active Glucometer eCW1 ([facility]) Glucometer UNK 06/24/2019 12:00:00 AM EDT active Glucometer eCW1 ([facility]) Glucometer UNK 06/24/2019 12:00:00 AM EDT active Glucometer eCW1 ([facility]) Glucometer UNK 06/24/2019 12:00:00 AM EDT active Glucometer eCW1 ([facility]) Lancets Misc. - UNK 06/24/2019 12:00:00 AM EDT active Lancets Misc. - eCW1 ([facility]) Lancets Misc. - UNK 06/24/2019 12:00:00 AM EDT active Lancets Misc. - eCW1 ([facility]) Test Strips - K 06/24/2019 12:00:00 AM EDT acti ve - eCW1 ([facility]) Test Strips - UNK 06/24/2019 12:00:00 AM EDT acti ve - eCW1 ([facility]) Glucometer UNK 06/24/2019 12:00:00 AM EDT active testing 4 times a day and as needed eCW1 ([facility]) Lancets Misc. - UNK 06/24/2019 12:00:00 AM EDT active Lancets Misc. - eCW1 ([facility]) Lancets Misc. - UNK 06/24/2019 12:00:00 AM EDT active Lancets Misc. - eCW1 ([facility]) Lancets Misc. - UNK 06/24/2019 12:00:00 AM EDT active Lancets Misc. - eCW1 ([facility]) Test Strips - K 06/24/2019 12:00:00 AM EDT acti ve - eCW1 ([facility]) Glucometer UNK 06/24/2019 12:00:00 AM EDT active Glucometer eCW1 ([facility]) Lancets Misc. - UNK 06/24/2019 12:00:00 AM EDT ac tive - eCW1 ([facility]) Test Strips - UNK 06/24/2019 12:00:00 AM EDT acti ve Test Strips - eCW1 ([facility]) Test Strips - UNK 06/24/2019 12:00:00 AM EDT acti ve Test Strips - eCW1 ([facility]) Test Strips - UNK 06/24/2019 12:00:00 AM EDT acti ve - eCW1 ([facility]) Lancets Misc. - UNK 06/24/2019 12:00:00 AM EDT ac tive - eCW1 ([facility]) Lancets Misc. - UNK 06/24/2019 12:00:00 AM EDT active Lancets Misc. - eCW1 ([facility]) Test Strips - UNK 06/24/2019 12:00:00 AM EDT acti ve Test Strips - eCW1 ([facility]) Lancets Misc. - UNK 06/24/2019 12:00:00 AM EDT active Lancets Misc. - eCW1 ([facility]) Test Strips - UNK 06/24/2019 12:00:00 AM EDT acti ve Test Strips - eCW1 ([facility]) Lancets Misc. - UNK 06/24/2019 12:00:00 AM EDT active Lancets Misc. - eCW1 ([facility]) Test Strips - UNK 06/24/2019 12:00:00 AM EDT acti ve Test Strips - eCW1 ([facility]) Glucometer UNK 06/24/2019 12:00:00 AM EDT active Glucometer eCW1 ([facility]) Glucometer UNK 06/24/2019 12:00:00 AM EDT active testing 4 times a day and as needed eCW1 ([facility]) Glucometer UNK 06/24/2019 12:00:00 AM EDT active Glucometer eCW1 ([facility]) Test Strips - UNK 06/24/2019 12:00:00 AM EDT acti ve Test Strips - eCW1 ([facility]) Lancets Misc. - UNK 06/24/2019 12:00:00 AM EDT active Lancets Misc. - eCW1 ([facility]) Glucometer UNK 06/24/2019 12:00:00 AM EDT active Glucometer eCW1 ([facility]) Glucometer UNK 06/24/2019 12:00:00 AM EDT active Glucometer eCW1 ([facility]) Glucometer UNK 06/24/2019 12:00:00 AM EDT active Glucometer eCW1 ([facility]) Lancets Misc. - UNK 06/24/2019 12:00:00 AM EDT active Lancets Misc. - eCW1 ([facility]) Lancets Misc. - UNK 06/24/2019 12:00:00 AM EDT active Lancets Misc. - eCW1 ([facility]) Hydromorphone Hydrochloride 4 MG Oral Tablet Hydromorp nellie HCl 4 MG Hydromorphone HCl 4 MG 06/24/2019 12:00:00 AM EDT active 3 tablets eCW1 ([facility]) Lancets Misc. - UNK 06/24/2019 12:00:00 AM EDT active Lancets Misc. - eCW1 ([facility]) Glucometer UNK 06/24/2019 12:00:00 AM EDT active Glucometer eCW1 ([facility]) Lancets Misc. - UNK 06/24/2019 12:00:00 AM EDT active Lancets Misc. - eCW1 ([facility]) Lancets Misc. - UNK 06/24/2019 12:00:00 AM EDT ac tive - eCW1 ([facility]) Test Strips - UNK 06/24/2019 12:00:00 AM EDT acti ve Test Strips - eCW1 ([facility]) Glucometer UNK 06/24/2019 12:00:00 AM EDT active Glucometer eCW1 ([facility]) Lancets Misc. - UNK 06/24/2019 12:00:00 AM EDT active Lancets Misc. - eCW1 ([facility]) Glucometer UNK 06/24/2019 12:00:00 AM EDT active Glucometer eCW1 ([facility]) Test Strips - UNK 06/24/2019 12:00:00 AM EDT acti ve Test Strips - eCW1 ([facility]) Glucometer UNK 06/24/2019 12:00:00 AM EDT active Glucometer eCW1 ([facility]) Glucometer UNK 06/24/2019 12:00:00 AM EDT active Glucometer eCW1 ([facility]) Test Strips - UNK 06/24/2019 12:00:00 AM EDT acti ve Test Strips - eCW1 ([facility]) Test Strips - UNK 06/24/2019 12:00:00 AM EDT acti ve Test Strips - eCW1 ([facility]) Test Strips - UNK 06/24/2019 12:00:00 AM EDT acti ve Test Strips - eCW1 ([facility]) Test Strips - UNK 06/24/2019 12:00:00 AM EDT acti ve Test Strips - eCW1 ([facility]) Lancets Misc. - UNK 06/24/2019 12:00:00 AM EDT active Lancets Misc. - eCW1 ([facility]) Lancets Misc. - UNK 06/24/2019 12:00:00 AM EDT active Lancets Misc. - eCW1 ([facility]) Lancets Misc. - UNK 06/24/2019 12:00:00 AM EDT active Lancets Misc. - eCW1 ([facility]) Lancets Misc. - UNK 06/24/2019 12:00:00 AM EDT active Lancets Misc. - eCW1 ([facility]) Lancets Misc. - UNK 06/24/2019 12:00:00 AM EDT active Lancets Misc. - eCW1 ([facility]) Test Strips - UNK 06/24/2019 12:00:00 AM EDT acti ve Test Strips - eCW1 ([facility]) Glucometer UNK 06/24/2019 12:00:00 AM EDT active testing 4 times a day and as needed eCW1 ([facility]) Lancets Misc. - UNK 06/24/2019 12:00:00 AM EDT active Lancets Misc. - eCW1 ([facility]) Lancets Misc. - UNK 06/24/2019 12:00:00 AM EDT active Lancets Misc. - eCW1 ([facility]) Glucometer UNK 06/24/2019 12:00:00 AM EDT active Glucometer eCW1 ([facility]) Test Strips - UNK 06/24/2019 12:00:00 AM EDT acti ve Test Strips - eCW1 ([facility]) Glucometer UNK 06/24/2019 12:00:00 AM EDT active Glucometer eCW1 ([facility]) Test Strips - UNK 06/24/2019 12:00:00 AM EDT acti ve Test Strips - eCW1 ([facility]) Test Strips - UNK 06/24/2019 12:00:00 AM EDT acti ve Test Strips - eCW1 ([facility]) Glucometer UNK 06/24/2019 12:00:00 AM EDT active Glucometer eCW1 ([facility]) Glucometer UNK 06/24/2019 12:00:00 AM EDT active testing 4 times a day and as needed eCW1 ([facility]) Glucometer UNK 06/24/2019 12:00:00 AM EDT active Glucometer eCW1 ([facility]) Test Strips - UNK 06/24/2019 12:00:00 AM EDT acti ve Test Strips - eCW1 ([facility]) Glucometer UNK 06/24/2019 12:00:00 AM EDT active Glucometer eCW1 ([facility]) Glucometer UNK 06/24/2019 12:00:00 AM EDT active Glucometer eCW1 ([facility]) Glucometer UNK 06/24/2019 12:00:00 AM EDT active testing 4 times a day and as needed eCW1 ([facility]) Lancets Misc. - UNK 06/24/2019 12:00:00 AM EDT active Lancets Misc. - eCW1 ([facility]) Lancets Misc. - UNK 06/24/2019 12:00:00 AM EDT active Lancets Misc. - eCW1 ([facility]) Glucometer UNK 06/24/2019 12:00:00 AM EDT active Glucometer eCW1 ([facility]) Test Strips - UNK 06/24/2019 12:00:00 AM EDT acti ve Test Strips - eCW1 ([facility]) Test Strips - UNK 06/24/2019 12:00:00 AM EDT acti ve Test Strips - eCW1 ([facility]) Glucometer UNK 06/24/2019 12:00:00 AM EDT active Glucometer eCW1 ([facility]) Lancets Misc. - UNK 06/24/2019 12:00:00 AM EDT active Lancets Misc. - eCW1 ([facility]) Test Strips - UNK 06/24/2019 12:00:00 AM EDT acti ve Test Strips - eCW1 ([facility]) Lancets Misc. - UNK 06/24/2019 12:00:00 AM EDT active Lancets Misc. - eCW1 ([facility]) Lancets Misc. - UNK 06/24/2019 12:00:00 AM EDT active Lancets Misc. - eCW1 ([facility]) Lancets Misc. - UNK 06/24/2019 12:00:00 AM EDT active Lancets Misc. - eCW1 ([facility]) Test Strips - UNK 06/24/2019 12:00:00 AM EDT acti ve Test Strips - eCW1 ([facility]) Glucometer UNK 06/24/2019 12:00:00 AM EDT active Glucometer eCW1 ([facility]) Lancets Misc. - UNK 06/24/2019 12:00:00 AM EDT active Lancets Misc. - eCW1 ([facility]) Glucometer UNK 06/24/2019 12:00:00 AM EDT active Glucometer eCW1 ([facility]) Glucometer UNK 06/24/2019 12:00:00 AM EDT active Glucometer eCW1 ([facility]) Lancets Misc. - UNK 06/24/2019 12:00:00 AM EDT active Lancets Misc. - eCW1 ([facility]) Test Strips - UNK 06/24/2019 12:00:00 AM EDT acti ve Test Strips - eCW1 ([facility]) Test Strips - UNK 06/24/2019 12:00:00 AM EDT acti ve Test Strips - eCW1 ([facility]) Test Strips - UNK 06/24/2019 12:00:00 AM EDT acti ve Test Strips - eCW1 ([facility]) Lancets Misc. - UNK 06/24/2019 12:00:00 AM EDT active Lancets Misc. - eCW1 ([facility]) Test Strips - UNK 06/24/2019 12:00:00 AM EDT acti ve Test Strips - eCW1 ([facility]) Lancets Misc. - UNK 06/24/2019 12:00:00 AM EDT ac tive - eCW1 ([facility]) Glucometer UNK 06/24/2019 12:00:00 AM EDT active Glucometer eCW1 ([facility]) Lancets Misc. - UNK 06/24/2019 12:00:00 AM EDT active Lancets Misc. - eCW1 ([facility]) Glucometer UNK 06/24/2019 12:00:00 AM EDT active Glucometer eCW1 ([facility]) Glucometer UNK 06/24/2019 12:00:00 AM EDT active Glucometer eCW1 ([facility]) Lancets Misc. - UNK 06/24/2019 12:00:00 AM EDT ac tive - eCW1 ([facility]) Lancets Misc. - UNK 06/24/2019 12:00:00 AM EDT active Lancets Misc. - eCW1 ([facility]) Test Strips - UNK 06/24/2019 12:00:00 AM EDT acti ve Test Strips - eCW1 ([facility]) Test Strips - UNK 06/24/2019 12:00:00 AM EDT acti ve - eCW1 ([facility]) Lancets Misc. - UNK 06/24/2019 12:00:00 AM EDT active Lancets Misc. - eCW1 ([facility]) Glucometer UNK 06/24/2019 12:00:00 AM EDT active Glucometer eCW1 ([facility]) Lancets Misc. - UNK 06/24/2019 12:00:00 AM EDT ac tive - eCW1 ([facility]) Glucometer UNK 06/24/2019 12:00:00 AM EDT active Glucometer eCW1 ([facility]) Lancets Misc. - UNK 06/24/2019 12:00:00 AM EDT ac tive - eCW1 ([facility]) Glucometer UNK 06/24/2019 12:00:00 AM EDT active testing 4 times a day and as needed eCW1 ([facility]) Lancets Misc. - UNK 06/24/2019 12:00:00 AM EDT active Lancets Misc. - eCW1 ([facility]) Lancets Misc. - UNK 06/24/2019 12:00:00 AM EDT active Lancets Misc. - eCW1 ([facility]) Lancets Misc. - UNK 06/24/2019 12:00:00 AM EDT ac tive - eCW1 ([facility]) Glucometer UNK 06/24/2019 12:00:00 AM EDT active Glucometer eCW1 ([facility]) Lancets Misc. - UNK 06/24/2019 12:00:00 AM EDT active Lancets Misc. - eCW1 ([facility]) Lancets Misc. - UNK 06/24/2019 12:00:00 AM EDT active Lancets Misc. - eCW1 ([facility]) Lancets Misc. - UNK 06/24/2019 12:00:00 AM EDT ac tive - eCW1 ([facility]) Test Strips - K 06/24/2019 12:00:00 AM EDT acti ve Test Strips - eCW1 ([facility]) Test Strips - K 06/24/2019 12:00:00 AM EDT acti ve Test Strips - eCW1 ([facility]) Test Strips - UNK 06/24/2019 12:00:00 AM EDT acti ve Test Strips - eCW1 ([facility]) Lancets Misc. - UNK 06/24/2019 12:00:00 AM EDT active Lancets Misc. - eCW1 ([facility]) Lancets Misc. - UNK 06/24/2019 12:00:00 AM EDT active Lancets Misc. - eCW1 ([facility]) Lancets Misc. - UNK 06/24/2019 12:00:00 AM EDT ac tive - eCW1 ([facility]) Glucometer UNK 06/24/2019 12:00:00 AM EDT active Glucometer eCW1 ([facility]) Lancets Misc. - UNK 06/24/2019 12:00:00 AM EDT active Lancets Misc. - eCW1 ([facility]) Test Strips - K 06/24/2019 12:00:00 AM EDT acti ve - eCW1 ([facility]) Test Strips - UNK 06/24/2019 12:00:00 AM EDT acti ve - eCW1 ([facility]) Glucometer UNK 06/24/2019 12:00:00 AM EDT active Glucometer eCW1 ([facility]) Hydromorphone Hydrochloride 4 MG Oral Tablet Hydromorp nellie HCl 4 MG Hydromorphone HCl 4 MG 06/17/2019 12:00:00 AM EST active 3 tablets eCW1 ([facility]) 2 % 06/17/2019 12:00:00 AM EST ointment [...] {tablets} active Hydromorphone HCl 4 MG eCW1 ([facility]) Hydromorphone Hydrochloride 4 MG Oral Tablet Hydromorp nellie HCl 4 MG Hydromorphone HCl 4 MG 06/17/2019 12:00:00 AM EST active 3 tablets eCW1 ([facility]) 4 mg 06/17/2019 12:00:00 AM EST tablet [...] 12:00:00 AM EST active 3 tablets eCW1 ([facility]) 4 mg 06/11/2019 12:00:00 AM EST tablet [...] 12:00:00 AM EST active 3 tablets eCW1 ([facility]) 4 mg 06/04/2019 12:00:00 AM EST tablet 168 TAKE 3 TABLETS BY MOUTH EVERY 3 HOURS NEEDED MAXIMUM DAILY DOSE = 24 TABLETS TAKE 3 TABLETS BY MOUTH EVERY 3 HOURS NEEDED MAXIMUM DAILY DOSE = 24 TABLETS SOLD: 06/04/2019 [facility] bed UNK 06/02/2019 12:00:00 AM EST activ e Hospital bed eCW1 ([facility]) Hospital bed UNK 06/02/2019 12:00:00 AM EST activ e Hospital bed eCW1 ([facility]) Hospital bed UNK 06/02/2019 12:00:00 AM EST activ e Hospital bed eCW1 ([facility]) Hospital bed UNK 06/02/2019 12:00:00 AM EST activ e Hospital bed eCW1 ([facility]) Hospital bed UNK 06/02/2019 12:00:00 AM EST activ e Hospital bed eCW1 ([facility]) Hospital bed UNK 06/02/2019 12:00:00 AM EST activ e Hospital bed eCW1 ([facility]) Hospital bed UNK 06/02/2019 12:00:00 AM EST activ e use daily eCW1 ([facility]) Hospital bed UNK 06/02/2019 12:00:00 AM EST activ e Hospital bed eCW1 ([facility]) Hospital bed UNK 06/02/2019 12:00:00 AM EST activ e Hospital bed eCW1 ([facility]) Hospital bed UNK 06/02/2019 12:00:00 AM EST activ e Hospital bed eCW1 ([facility]) Hospital bed UNK 06/02/2019 12:00:00 AM EST activ e Hospital bed eCW1 ([facility]) Hospital bed UNK 06/02/2019 12:00:00 AM EST activ e Hospital bed eCW1 ([facility]) Hospital bed UNK 06/02/2019 12:00:00 AM EST activ e Hospital bed eCW1 ([facility]) Hospital bed UNK 06/02/2019 12:00:00 AM EST activ e Hospital bed eCW1 ([facility]) Hospital bed UNK 06/02/2019 12:00:00 AM EST activ e Hospital bed eCW1 ([facility]) Hospital bed UNK 06/02/2019 12:00:00 AM EST activ e Hospital bed eCW1 ([facility]) Hospital bed UNK 06/02/2019 12:00:00 AM EST activ e Hospital bed eCW1 ([facility]) Hospital bed UNK 06/02/2019 12:00:00 AM EST activ e Hospital bed eCW1 ([facility]) Hospital bed UNK 06/02/2019 12:00:00 AM EST activ e use daily eCW1 ([facility]) Hospital bed UNK 06/02/2019 12:00:00 AM EST activ e Hospital bed eCW1 ([facility]) Hospital bed UNK 06/02/2019 12:00:00 AM EST activ e Hospital bed eCW1 ([facility]) Hospital bed UNK 06/02/2019 12:00:00 AM EST activ e Hospital bed eCW1 ([facility]) Hospital bed UNK 06/02/2019 12:00:00 AM EST activ e use daily eCW1 ([facility]) Hospital bed UNK 06/02/2019 12:00:00 AM EST activ e Hospital bed eCW1 ([facility]) Hospital bed UNK 06/02/2019 12:00:00 AM EST activ e Hospital bed eCW1 ([facility]) Hospital bed UNK 06/02/2019 12:00:00 AM EST activ e Hospital bed eCW1 ([facility]) Hospital bed UNK 06/02/2019 12:00:00 AM EST activ e Hospital bed eCW1 ([facility]) Hospital bed UNK 06/02/2019 12:00:00 AM EST activ e use daily eCW1 ([facility]) Hospital bed UNK 06/02/2019 12:00:00 AM EST activ e Hospital bed eCW1 ([facility]) Hospital bed UNK 06/02/2019 12:00:00 AM EST activ e Hospital bed eCW1 ([facility]) Hospital bed UNK 06/02/2019 12:00:00 AM EST activ e use daily eCW1 ([facility]) Hospital bed UNK 06/02/2019 12:00:00 AM EST activ e use daily eCW1 ([facility]) Hospital bed UNK 06/02/2019 12:00:00 AM EST activ e Hospital bed eCW1 ([facility]) Hospital bed UNK 06/02/2019 12:00:00 AM EST activ e Hospital bed eCW1 ([facility]) Hospital bed UNK 06/02/2019 12:00:00 AM EST activ e Hospital bed eCW1 ([facility]) Hospital bed UNK 06/02/2019 12:00:00 AM EST activ e use daily eCW1 ([facility]) Hospital bed UNK 06/02/2019 12:00:00 AM EST activ e Hospital bed eCW1 ([facility]) Hospital bed UNK 06/02/2019 12:00:00 AM EST activ e Hospital bed eCW1 ([facility]) Hospital bed UNK 06/02/2019 12:00:00 AM EST activ e Hospital bed eCW1 ([facility]) Hospital bed UNK 06/02/2019 12:00:00 AM EST activ e Hospital bed eCW1 ([facility]) Hospital bed UNK 06/02/2019 12:00:00 AM EST activ e Hospital bed eCW1 ([facility]) Hospital bed UNK 06/02/2019 12:00:00 AM EST activ e use daily eCW1 ([facility]) Hospital bed UNK 06/02/2019 12:00:00 AM EST activ e Hospital bed eCW1 ([facility]) Hospital bed UNK 06/02/2019 12:00:00 AM EST activ e Hospital bed eCW1 ([facility]) Hospital bed UNK 06/02/2019 12:00:00 AM EST activ e Hospital bed eCW1 ([facility]) Hospital bed UNK 06/02/2019 12:00:00 AM EST activ e Hospital bed eCW1 ([facility]) Hospital bed UNK 06/02/2019 12:00:00 AM EST activ e Hospital bed eCW1 ([facility]) Hospital bed UNK 06/02/2019 12:00:00 AM EST activ e Hospital bed eCW1 ([facility]) Hospital bed UNK 06/02/2019 12:00:00 AM EST activ e Hospital bed eCW1 ([facility]) Hospital bed UNK 06/02/2019 12:00:00 AM EST activ e Hospital bed eCW1 ([facility]) Hospital bed UNK 06/02/2019 12:00:00 AM EST activ e use daily eCW1 ([facility]) Hospital bed UNK 06/02/2019 12:00:00 AM EST activ e use daily eCW1 ([facility]) Hospital bed UNK 06/02/2019 12:00:00 AM EST activ e Hospital bed eCW1 ([facility]) Hospital bed UNK 06/02/2019 12:00:00 AM EST activ e Hospital bed eCW1 ([facility]) Hospital bed UNK 06/02/2019 12:00:00 AM EST activ e Hospital bed eCW1 ([facility]) Hospital bed UNK 06/02/2019 12:00:00 AM EST activ e Hospital bed eCW1 ([facility]) Hospital bed UNK 06/02/2019 12:00:00 AM EST activ e Hospital bed eCW1 ([facility]) Hospital bed UNK 06/02/2019 12:00:00 AM EST activ e Hospital bed eCW1 ([facility]) Hospital bed UNK 06/02/2019 12:00:00 AM EST activ e Hospital bed eCW1 ([facility]) Hospital bed UNK 06/02/2019 12:00:00 AM EST activ e Hospital bed eCW1 ([facility]) Hospital bed UNK 06/02/2019 12:00:00 AM EST activ e Hospital bed eCW1 ([facility]) Hospital bed UNK 06/02/2019 12:00:00 AM EST activ e Hospital bed eCW1 ([facility]) Hospital bed UNK 06/02/2019 12:00:00 AM EST activ e Hospital bed eCW1 ([facility]) Hospital bed UNK 06/02/2019 12:00:00 AM EST activ e Hospital bed eCW1 ([facility]) Hospital bed UNK 06/02/2019 12:00:00 AM EST activ e Hospital bed eCW1 ([facility]) Hospital bed UNK 06/02/2019 12:00:00 AM EST activ e Hospital bed eCW1 ([facility]) Hospital bed UNK 06/02/2019 12:00:00 AM EST activ e Hospital bed eCW1 ([facility]) Hospital bed UNK 06/02/2019 12:00:00 AM EST activ e Hospital bed eCW1 ([facility]) Hospital bed UNK 06/02/2019 12:00:00 AM EST activ e Hospital bed eCW1 ([facility]) Hospital bed UNK 06/02/2019 12:00:00 AM EST activ e Hospital bed eCW1 ([facility]) Hospital bed UNK 06/02/2019 12:00:00 AM EST activ e Hospital bed eCW1 ([facility]) Hospital bed UNK 06/02/2019 12:00:00 AM EST activ e Hospital bed eCW1 ([facility]) Hospital bed UNK 06/02/2019 12:00:00 AM EST activ e Hospital bed eCW1 ([facility]) Hospital bed UNK 06/02/2019 12:00:00 AM EST activ e Hospital bed eCW1 ([facility]) Hospital bed UNK 06/02/2019 12:00:00 AM EST activ e Hospital bed eCW1 ([facility]) Hospital bed UNK 06/02/2019 12:00:00 AM EST activ e Hospital bed eCW1 ([facility]) Hospital bed UNK 06/02/2019 12:00:00 AM EST activ e Hospital bed eCW1 ([facility]) Hospital bed UNK 06/02/2019 12:00:00 AM EST activ e Hospital bed eCW1 ([facility]) Hospital bed UNK 06/02/2019 12:00:00 AM EST activ e Hospital bed eCW1 ([facility]) Hospital bed UNK 06/02/2019 12:00:00 AM EST activ e Hospital bed eCW1 ([facility]) Hospital bed UNK 06/02/2019 12:00:00 AM EST activ e Hospital bed eCW1 ([facility]) Hospital bed UNK 06/02/2019 12:00:00 AM EST activ e use daily eCW1 ([facility]) Hospital bed UNK 06/02/2019 12:00:00 AM EST activ e Hospital bed eCW1 ([facility]) Hospital bed UNK 06/02/2019 12:00:00 AM EST activ e Hospital bed eCW1 ([facility]) Hospital bed UNK 06/02/2019 12:00:00 AM EST activ e use daily eCW1 ([facility]) Hospital bed UNK 06/02/2019 12:00:00 AM EST activ e Hospital bed eCW1 ([facility]) 4 mg 05/26/2019 12:00:00 AM EST tablet [...] 12:00:00 AM EST active 3 tablets eCW1 ([facility]) 0.1 % 05/26/2019 12:00:00 AM EST cream [...] 12:00:00 AM EST active 3 tablets eCW1 ([facility]) Hydromorphone HCl 4 MG UNK 05/05/2019 12:00:00 AM EST active 3 tablets eCW1 ([facility]) 4 mg 05/05/2019 12:00:00 AM EST tablet 168 TAKE 3 TABLETS BY MOUTH EVERY 3 HOURS NEEDED MAXIMUM DAILY DOSE = 32 TABLETS TAKE 3 TABLETS BY MOUTH EVERY 3 HOURS NEEDED MAXIMUM DAILY DOSE = 32 TABLETS SOLD: 05/05/2019 [facility] Hydromorphone Hydrochloride 4 MG Oral Tablet Hydromorp nellie HCl 4 MG Hydromorphone HCl 4 MG 05/01/2019 12:00:00 AM EST active 4 tablets eCW1 ([facility]) 4 mg 05/01/2019 12:00:00 AM EST tablet 64 TAKE 4 TABLETS BY MOUTH EVERY 3 HOURS NEEDED MAXIMUM DAILY DOSE = 32TABS TAKE 4 TABLETS BY MOUTH EVERY 3 HOURS NEEDED MAXIMUM DAILY DOSE = 32TABS SOLD: 05/01/2019 [facility] Prednisone 50 MG Oral Tablet PredniSONE 50 MG PredniSONE 50 MG 04/26/2019 12:00:00 AM EST suspended 1 tab let eCW1 ([facility]) Prednisone 50 MG Oral Tablet PredniSONE 50 MG PredniSONE 50 MG 04/26/2019 12:00:00 AM EST suspended 1 tab let eCW1 ([facility]) Prednisone 50 MG Oral Tablet PredniSONE 50 MG PredniSONE 50 MG 04/26/2019 12:00:00 AM EST active 1 tablet eCW1 ([facility]) Prednisone 50 MG Oral Tablet PredniSONE 50 MG PredniSONE 50 MG 04/26/2019 12:00:00 AM EST suspended 1 tab let eCW1 ([facility]) Prednisone 50 MG Oral Tablet PredniSONE 50 MG PredniSONE 50 MG 04/26/2019 12:00:00 AM EST suspended 1 tab let eCW1 ([facility]) Prednisone 50 MG Oral Tablet PredniSONE 50 MG PredniSONE 50 MG 04/26/2019 12:00:00 AM EST suspended 1 tab let eCW1 ([facility]) 50 mg 04/26/2019 12:00:00 AM EST tablet 5 TAKE 1 TABLET BY MOUTH ONCE A DAY FOR 5 DAYS TAKE 1 TABLET BY MOUTH ONCE A DAY FOR 5 DAYS SOLD: 04/26/2019 [facility] Prednisone 50 MG Oral Tablet PredniSONE 50 MG PredniSONE 50 MG 04/26/2019 12:00:00 AM EST active 1 tablet eCW1 ([facility]) Prednisone 50 MG Oral Tablet PredniSONE 50 MG PredniSONE 50 MG 04/26/2019 12:00:00 AM EST 1.0 {tablet} suspended PredniSONE 50 MG eCW1 ([facility]) Prednisone 50 MG Oral Tablet PredniSONE 50 MG PredniSONE 50 MG 04/26/2019 12:00:00 AM EST suspended 1 tab let eCW1 ([facility]) Hydromorphone Hydrochloride 4 MG Oral Tablet Hydromorp nellie HCl 4 MG Hydromorphone HCl 4 MG 04/22/2019 12:00:00 AM EST active 3 tablets eCW1 ([facility]) 4 mg 04/22/2019 12:00:00 AM EST tablet 168 TAEK 3 TABLETS BY MOUTH EVERY 3 HOURS NEEDED MAXIMUM DAILY DOSE = 24 TABLETS TAEK 3 TABLETS BY MOUTH EVERY 3 HOURS NEEDED MAXIMUM DAILY DOSE = 24 TABLETS SOLD: 04/22/2019 [facility] 2 % 04/21/2019 12:00:00 AM EST [...] 12:00:00 AM EST suspended 1 tablet eCW1 ([facility]) Doxycycline Monohydrate 100 MG Oral Tablet Doxycycline Monoh ydrate 100 MG 04/20/2019 12:00:00 AM EST suspended 1 tablet eCW1 ([facility]) Doxycycline Monohydrate 100 MG Oral Tablet Doxycycline Monoh ydrate 100 MG 04/20/2019 12:00:00 AM EST suspended 1 tablet eCW1 ([facility]) Doxycycline Monohydrate 100 MG Oral Tablet Doxycycline Monoh ydrate 100 MG 04/20/2019 12:00:00 AM EST suspended 1 tablet eCW1 ([facility]) Doxycycline Monohydrate 100 MG Oral Tablet Doxycycline Monoh ydrate 100 MG 04/20/2019 12:00:00 AM EST active 1 tablet eCW1 ([facility]) Doxycycline Monohydrate 100 MG Oral Tablet Doxycycline Monoh ydrate 100 MG 04/20/2019 12:00:00 AM EST active 1 tablet eCW1 ([facility]) Doxycycline Monohydrate 100 MG Oral Tablet Doxycycline Monoh ydrate 100 MG 04/20/2019 12:00:00 AM EST 1.0 {tablet} suspende d Doxycycline Monohydrate 100 MG eCW1 ([facility]) Doxycycline Monohydrate 100 MG Oral Tablet Doxycycline Monoh ydrate 100 MG 04/20/2019 12:00:00 AM EST active 1 tablet eCW1 ([facility]) Doxycycline Monohydrate 100 MG Oral Tablet Doxycycline Monoh ydrate 100 MG 04/20/2019 12:00:00 AM EST suspended 1 tablet eCW1 ([facility]) 4 mg/2 mL 04/19/2019 12:00:00 AM EST [...] 12:00:00 AM EST active 3 tablets eCW1 ([facility]) 90 mcg/actuation 04/12/2019 12:00:00 AM EST HFA [...] 12:00:00 AM EST active 3 tablets eCW1 ([facility]) 10 gram/15 mL 03/06/2019 12:00:00 AM EST [...] Respimat 1.25 mcg/actuation inhalation mist ti otropium 0.52164 MG/ACTUAT Metered Dose Inhaler 11/11/2018 08:21:22 AM EDT 2 mists completed Spiriva Respimat JUAN DANIEL ([facility]) 12 % 10/30/2018 12:00:00 AM EDT lotion [...] 15 0 MG active 1 tablet eCW1 ([facility] Insurance Providers Payer name Policy type / Coverage type Policy ID Covered democrat ID Covered democrat's relationship to joe Policy Joe Plan Information [facility] [id number] SP [id number] [facility] O [id number] S [id number] [facility] Health Plan [facility] Other 0 Self [address] [facility] [id number] SP [id number] [facility] [id number] SP [id number] [facility] [place] [id number] SP [id number] [facility] [id number] SP [id number] [facility] [id number] SP [id number] [place] [id number] SP [id number] SP [facility] O [id number] S [id number] [facility] [id number] SP [id number] MEDICAID [id number] SP [id number] [facility] [id number] SP [id number] MEDICAID [id number] SP [id number] BCBS [id number] Blue Cross/Blue Shield [id number] Medicaid [id number] Medicaid [id number] [facility] [id number] Preferred Provider Organization (PPO) [id number] ANSI-Medicaid [id number] ANSI-Medicaid [id number] ANSI-Medicaid [id number] ANSI-Medicaid [id number] ANSI-Medicaid [id number] ANSI-Medicaid [id number] ANSI-Medicaid [id number] ANSI-Medicaid [id number] ANSI-Medicaid [id number] ANSI-Medicaid [id number] ANSI-Medicaid [id number] ANSI-Medicaid [id number] ANSI-Medicaid [id number] ANSI-Medicaid [id number] ANSI-Medicaid [id number] ANSI-Medicaid [id number] ANSI-Medicaid [id number] ANSI-Medicaid [id number] ANSI-Medicaid [id number] ANSI-Medicaid [id number] ANSI-Medicaid [id number] ANSI-Medicaid [id number] ANSI-Medicaid [id number] ANSI-Medicaid [id number] ANSI-Medicaid [id number] [facility] [id number] ANSI-Medicaid [id number] [facility] [id number] [facility] [id number] ANSI-Medicaid [id number] ANSI-Medicaid [id number] ANSI-Medicaid [id number] ANSI-Medicaid [id number] ANSI-Medicaid [id number] ANSI-Medicaid [id number] ANSI-Medicaid [id number] ANSI-Medicaid [id number] ANSI-Medicaid [id number] ANSI-Medicaid [id number] [facility] [id number] ANSI-Medicaid [id number] ANSI-Medicaid [id number] ANSI-Medicaid [id number] [facility] [id number] [facility] [id number] ANSI-Medicaid [id number] ANSI-Medicaid [id number] ANSI-Medicaid [id number] ANSI-Medicaid [id number] ANSI-Medicaid [id number] ANSI-Medicaid [id number] ANSI-Medicaid [id number] ANSI-Medicaid [id number] ANSI-Medicaid [id number] ANSI-Medicaid [id number] [facility] Commercial [id number] Self [id number] ANSI-Medicaid [id number] ANSI-Medicaid [id number] ANSI-Medicaid [id number] ANSI-Medicaid [id number] ANSI-Medicaid [id number] ANSI-Medicaid [id number] ANSI-Medicaid [id number] ANSI-Medicaid [id number] ANSI-Medicaid [id number] ANSI-Medicaid [id number] ANSI-Medicaid [id number]-[id number] ANSI-Medicaid [id number]-[id number] ANSI-Medicaid [id number] ANSI-Medicaid [id number] ANSI-Medicaid [id number] ANSI-Medicaid [id number] ANSI-Medicaid [id number] [facility] [id number] ANSI-Medicaid [id number] ANSI-Medicaid [id number] ANSI-Medicaid [id number] ANSI-Medicaid [id number] ANSI-Medicaid [id number] ANSI-Medicaid [id number]-[id number] [facility] [id number] [facility] [id number] ANSI-Medicaid [id number] ANSI-Medicaid [id number] ANSI-Medicaid [id number] ANSI-Medicaid [id number]-[id number] ANSI-Medicaid [id number] [facility] [id number] ANSI-Medicaid [id number] ANSI-Medicaid [id number] ANSI-Medicaid [id number] [id number]-[id number] ANSI-Medicaid [id number]-[id number] ANSI-Medicaid [id number] ANSI-Medicaid [id number] ANSI-Medicaid [id number] ANSI-Medicaid [id number] ANSI-Medicaid [id number] [facility] Commercial [id number] Self [id number] ANSI-Medicaid [id number] ANSI-Medicaid [id number] ANSI-Medicaid [id number] ANSI-Medicaid [id number] ANSI-Medicaid [id number] ANSI-Medicaid [id number] ANSI-Medicaid [id number]-[id number] ANSI-Medicaid [id number] ANSI-Medicaid [id number] ANSI-Medicaid [id number] ANSI-Medicaid [id number] ANSI-Medicaid [id number] ANSI-Medicaid [id number] [facility] [id number] ANSI-Medicaid [id number] ANSI-Medicaid [id number] ANSI-Medicaid [id number] [facility] [id number] Self [id number] ANSI-Medicaid [id number] ANSI-Medicaid [id number] ANSI-Medicaid [id number] [employer] COMM[employer] PLAN MCDHMO [id number] SP [id number] [employer] Hmo Commercial [id number] Self [id number] UN[employer] COMMUNITY PLAN MCDHMO [id number] SP [id number] [employer] H[employer] Commercial [id number] Self [id number] UN[employer] COMMUNITY PLAN MCDHMO [id number] SP [id number] [employer] Hmo Commercial [id number] Self [id number] UN[employer] COMMUNITY PLAN MCDHMO [id number] SP [id number] UN[employer] COMMUNITY PLAN MCDHMO [id number] SP [id number] [employer] H[employer] Commercial [id number] Self [id number] UN[employer] COMMUNITY PLAN MCDHMO [id number] SP [id number] [employer] H[employer] Commercial [id number] Self [id number] UN[employer] COMMUNITY PLAN MCDHMO [id number] SP [id number] UN[employer] COMMUNITY PLAN MCDHMO [id number] SP [id number] [employer] H[employer] Commercial [id number] Self [id number] [employer] Hmo Commercial [id number] Self [id number] UNHC COMMUNITY PLAN MCDHMO [id number] SP [id number] [employer] H[employer] Commercial Self BS Shi Hmo Blue Option Medigap Part B Self [place] Medigap Part B Self [facility] Community Plan Commercial Self UNHC COMMUNITY PLAN MCDHMO UNHC COMMUNITY PLAN MCDHMO Self [place] UNHC COMMUNITY PLAN MCDHMO [place] Medigap Part B Self BS Shi Hmo Blue Option Medigap Part B Self [facility] Community Plan Commercial Self UNHC COMMUNITY PLAN MCDHMO [id number] SP [id number] UNHC COMMUNITY PLAN MCDHMO [id number] SP [id number] UN COMMUNITY PLAN MCDO [id number] SP [id number] [facility] M[facility]O [id number] SP [id number] [facility] Shi/MCR Medigap Part B Self Medicaid [place] Self [facility] Hmo Commercial Self [facility] I [id number] Self [id number] [place] H [id number] Self [id number] [place] H [id number] Self [id number] [facility] Plan-Shi Commercial Self BLUE [place]OSS [place] PLAN [id number] SP [id number] [employer] BCBS P [id number] S [id number] HMO BLUE [id number] SP [id number] [facility] [id number] SP [id number] Problems, Conditions, and Diagnoses Code Display Name Description Problem Type Effective Dates Data Source(s) Corns and callosities Corns and callosities Problem 03/30/2020 12:00:00 AM EST MED[facility] ([facility] [id number] Onychomycosis Onychomycosis Problem 03/30/2020 12:00:00 AM EST [facility] ([facility] G89.29 [id number] Other chronic pain Problem 03/28/2020 12:00: 00 AM EST eCW1 ([facility]) 379.21 Vitreous Disorders Degeneration Vitreous Disorders Deg eneration Problem 03/21/2020 12:00:00 AM EST JUAN DANIEL (Jhony Lowery MD [facility]) 368.12 Transient Visual Loss Transient Visual Loss Problem 03/21/2020 12:00:00 AM EST JUAN DANIEL (Jhony Lowery MD [facility]) 375.15 Dry Eye Syndrome Dry Eye Syndrome Problem 03/21/2020 12 :00:00 AM EST JUAN DANIEL (Jhony Lowery MD [facility]) 366.16 Cataract Senile Nuclear Cataract Senile Nuclear Proble m 03/21/2020 12:00:00 AM EST JUAN DANIEL (Jhony Lowery MD [facility]) [id number] Long-term current use of insulin (situat ion) Taking Medication For Diabetes Long-term Use of Insulin Problem 03/21/2020 12:00:00 AM EST JUAN DANIEL (Jhony Lowery MD [facility]) 250.00 Diabetes Mellitus Type 2 Without Complic ation Diabetes Mellitus Type 2 Without Complication Problem 03/21/2020 12:00:00 AM EST JUAN DANIEL (Champ Lowery MD [facility]) 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, ) R29.6 [id number] Falls frequently Problem 01/16/2020 12:00:00 AM EDT eCW1 ([facility]) L71.9 [id number] Rosacea Problem 11/02/2019 12:00:00 AM ED T eCW1 ([facility]) K43.0 [id number] Incisional hernia with obstruction but no gangrene Problem 10/21/2019 12:00:00 AM EDT eCW1 ([facility]) N95.2 [id number] Vaginal atrophy Problem 10/01/2019 12:00:00 AM EDT eCW1 ([facility]) M54.2 [id number] Cervicalgia Problem 07/29/2019 12:00:00 AM E DT eCW1 ([facility]) M54.2 [id number] Cervicalgia Problem 07/29/2019 12:00:00 AM E DT eCW1 ([facility]) L20.82 [id number] Flexural eczema Problem 07/23/2019 12:00:00 AM EDT eCW1 ([facility]) L20.82 [id number] Flexural eczema Problem 07/23/2019 12:00:00 AM EDT eCW1 ([facility]) Type 2 diabetes mellitus with diabetic p olyneuropathy Type 2 diabetes mellitus with diabetic polyneuropathy Problem 06/11/2019 12:00:00 AM EST MED ENT ([facility] [id number] 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 06/11/2019 12:00:00 AM EST MED[facility] ([facility] Surgeries/Procedures Procedure Description Date Indications Data Source(s) PROCTOSGMDSC RGD DX W/WO COLLJ SPEC BR/WA SPX 03/30/20 12:00:00 AM EST MEDENT ([facility]) Surgical / procedural history Scalp Alvaro [...] AM EST JUAN DANIEL (Jhony Lowery MD [facility]) Medical Eye Exam Medical Eye Exam 03/21/2020 12:00:00 AM EST JUAN DANIEL (Jhony Lowery MD [facility]) Sigmoidoscopy, Flexible;Diagnostic W/Or W/O Collection Of Sp ecime 02/17/2020 12:00:00 AM EST MED[facility] ([facility], ) Hernia Recurr Ventral/Incisional, Reducible 12/21/2019 12:00:00 AM EDT MED[facility] ([facility], ) Implantation Of Mesh Or Other Prosthesis For Incisional Or V entra 12/21/2019 12:00:00 AM EDT MED[facility] ([facility], ) RADEX FOOT COMPLETE MINIMUM 3 VIEWS 12/14/2019 12:00:0 0 AM EDT MED[facility] ([facility] RADEX FOOT COMPLETE MINIMUM 3 VIEWS 10/11/2019 12:00:0 0 AM EDT [facility] ([facility] NO CHARGE VISIT 09/13/2019 12:00:00 AM EDT eCW1 ([facility]) RADEX FOOT COMPLETE MINIMUM 3 VIEWS 08/30/2019 12:00:0 0 AM EDT MED[facility] ([facility] Medication: Toradol 60mg/2mL IM (Ketorolac) 07/30/2019 12:00:00 AM EDT eCW1 ([facility]) RADEX FOOT COMPLETE MINIMUM 3 VIEWS 07/29/2019 12:00:0 0 AM EDT MED[facility] ([facility] PHYSICIAN TELEPHONE EVALUATION 11-20 MIN 07/28/2019 12 :00:00 AM EDT eCW1 ([facility]) MARSUPIALIZATION [place] GL[place] CYST 07/16/2019 12:0 0:00 AM EDT eCW1 ([facility]) ESTABILISHED PATIENT [facility] CHARGE 020 12:00:00 AM EDT eCW1 ([facility]) RADEX FOOT COMPLETE MINIMUM 3 VIEWS 06/25/2019 12:00:0 0 AM EDT [facility] ([facility] RADEX FOOT COMPLETE MINIMUM 3 VIEWS 05/28/2019 12:00:0 0 AM EST [facility] ([facility] Results ID Date Data Source [id number] 02/12/2020 09:30:00 AM EDT [facility] Name Value Range Interpretation Code Description Data Yun rce(s) Supporting Document(s) SARS coronavirus 2 RNA [facility] This lab was ordered by [facility] and reported by [facility]. ID Date Data Source [id number] 12/22/2019 11:14:00 AM EDT MED[facility] ([facility], ) Name Value Range Interpretation Code Description Data Yun rce(s) Supporting Document(s) Glucose [Mass/volume] in Capillary blood by Glucometer 256 mg/dL 70-105 Above high normal MED[facility] ([facility]) ID Date Data Source [id number] 12/22/2019 05:30:00 AM ED [facility] Name Value Range Interpretation Code Description Data Yun rce(s) Supporting Document(s) Glucose [Mass/volume] in Capillary blood by Glucometer 260 mg/dL 70-105 Above high normal [facility] ([facility]) ID Date Data Source [id number] 12/21/2019 08:23:00 PM EDT [facility]) Name Value Range Interpretation Code Description Data Yun rce(s) Supporting Document(s) Glucose [Mass/volume] in Capillary blood by Glucometer 214 mg/dL 70-105 Above high normal [facility] ([facility]) ID Date Data Source [id number] 12/21/2019 04:52:00 PM EDT [facility]) Name Value Range Interpretation Code Description Data Yun rce(s) Supporting Document(s) Glucose [Mass/volume] in Capillary blood by Glucometer 126 mg/dL 70-105 Above high normal [facility] ([facility]) ID Date Data Source [id number] 12/21/2019 02:58:00 PM [facility] [address] [facility] Name Value Range Interpretation Code Description Data Yun rce(s) Supporting Document(s) Glucose [Mass/volume] in Capillary blood by Glucometer 159 mg/dL 70-105 Above high normal [facility] ([facility]) ID Date Data Source [id number] 12/21/2019 12:40:00 PM EDT [facility]) Name Value Range Interpretation Code Description Data Yun rce(s) Supporting Document(s) Glucose [Mass/volume] in Capillary blood by Glucometer 185 mg/dL 70-105 Above high normal [facility] ([facility]) ID Date Data Source [id number] 12/21/2019 10:29:00 AM EDT [facility]) Name Value Range Interpretation Code Description Data Yun rce(s) Supporting Document(s) Glucose [Mass/volume] in Capillary blood by Glucometer 203 mg/dL 70-105 Above high normal [facility] ([facility], ) ID Date Data Source [id number] 12/16/2019 09:00:00 AM EDT [facility] Name Value Range Interpretation Code Description Data Yun rce(s) Supporting Document(s) SARS coronavirus 2 RNA [facility] This lab was ordered by [facility] and reported by [facility]. ID Date Data Source [id number] 2019 12:00:00 AM EDT [facility] Name Value Range Interpretation Code Description Data Yun rce(s) Supporting Document(s) SARS CORONAVIRUS 2 RNA [facility] This lab was ordered by [facility] and reported by [facility]. ID Date Data Source RHYS PREP 09/12/2019 11:46:06 AM EDT eCW1 ([facility]) Name Value Range Interpretation Code Description Data Yun rce(s) Supporting Document(s) Positive Clue Cells eCW1 ([facility]) Hyphae eCW1 ([facility]) pH eCW1 ([facility]) Budding Yeast Forms eCW1 ([facility]) Trichomonas eCW1 ([facility]) Epithelial Cell Description eC W1 ([facility]) RBC eCW1 ([facility]) Positive Sniff eCW1 ([facility]) WBC eCW1 ([facility]) ID Date Data Source CHLAMYDIA & GC DNA AMPLIFICAT 09/10/2019 09:32:55 AM EDT eCW 1 ([facility]) Name Value Range Interpretation Code Description Data Yun rce(s) Supporting Document(s) Chlamydia trachomatis rRNA [Presence] in Unspecified specimen by Probe and target amplification method NEGATIVE eCW1 ([facility]) ID Date Data Source Urinalysis, no micro 09/10/2019 05:32:51 AM EDT eCW1 ([facility]) Name Value Range Interpretation Code Description Data Yun rce(s) Supporting Document(s) 1.015 1.015 eCW1 ([facility]) Spec gravity neg neg eCW1 ([facility] hospital) Protein neg pos e[facility]1 [facility]) Nitrate 5 6 eCW1 ([facility] pH + ++ eCW1 ([facility]) Leukocyte neg neg eCW1 ([facility]) Ketones norm norm eCW1 ([facility]) Urobili 1000 norm eCW1 ([facility]) Glucose neg 50 eCW1 ([facility]) Blood neg neg eCW1 ([facility]) Bilirubin yes eCW1 ([facility]) Internal QC Acceptable (Y/N) ID Date Data Source PAIN MGMT UR 10 PANEL [id number] 08/20/2019 06:48:24 AM EDT eC W1 ([facility]) Name Value Range Interpretation Code Description Data Yun rce(s) Supporting Document(s) Negative AMPHETAMINE SCREEN, URINE eCW1 ([facility]) Negative BARBITURATES SCREEN, URINE eCW 1 ([facility]) Negative BENZODIAZEPINES, URINE SC REEN eCW1 ([facility]) Negative CANNABINOID SCREEN, URINE eCW1 ([facility]) See Final Results OPIATE SCREEN, URI NE eCW1 ([facility]) Negative COCAINE SCREEN, URINE eCW1 ([facility]) Negative PCP SCREEN, URINE eCW1 ([facility]) Negative OXYCODONE, SCREEN, URINE eCW1 ([facility]) Negative PROPOXYPHENE URINE, SCREEN eCW 1 ([facility]) Negative METHADONE, URINE SCREEN eCW1 ( [facility]) Procedure Social History Code Duration Value Status Description Data Source(s ) Smoking 05/22/2020 12:00:00 AM EST Never Smoker completed Never S moker eCW1 ([facility]) Smoking 05/11/2020 12:00:00 AM EST Never Smoker completed Never S moker eCW1 ([facility]) Smoking 05/11/2020 12:00:00 AM EST Never Smoker completed Never S moker eCW1 ([facility]) Smoking 04/12/2020 12:00:00 AM EST Never Smoker completed Never S moker eCW1 ([facility]) Smoking 04/12/2020 12:00:00 AM EST Never Smoker completed Never S moker eCW1 ([facility]) Smoking 04/12/2020 12:00:00 AM EST Never Smoker completed Never S moker eCW1 ([facility]) Smoking 04/12/2020 12:00:00 AM EST Never Smoker completed Never S moker eCW1 ([facility]) Smoking 04/12/2020 12:00:00 AM EST Never Smoker completed Never S moker eCW1 ([facility]) Smoking 04/12/2020 12:00:00 AM EST Never Smoker completed Never S moker eCW1 ([facility]) Smoking 04/12/2020 12:00:00 AM EST Never Smoker completed Never S moker eCW1 ([facility]) Smoking 04/12/2020 12:00:00 AM EST Never Smoker completed Never S moker eCW1 ([facility]) Smoking 04/12/2020 12:00:00 AM EST Never Smoker completed Never S moker eCW1 ([facility]) Smoking 04/12/2020 12:00:00 AM EST Never Smoker completed Never S moker eCW1 ([facility]) Smoking 04/12/2020 12:00:00 AM EST Never Smoker completed Never S moker eCW1 ([facility]) Smoking 04/12/2020 12:00:00 AM EST Never Smoker completed Never S moker eCW1 ([facility]) Smoking 04/12/2020 12:00:00 AM EST Never Smoker completed Never S moker eCW1 ([facility]) Smoking 04/12/2020 12:00:00 AM EST Never Smoker completed Never S moker eCW1 ([facility]) Smoking 04/12/2020 12:00:00 AM EST Never Smoker completed Never S moker eCW1 ([facility]) Smoking 04/12/2020 12:00:00 AM EST Never Smoker completed Never S moker eCW1 ([facility]) Smoking 04/12/2020 12:00:00 AM EST Never Smoker completed Never S moker eCW1 ([facility]) Smoking 03/28/2020 12:00:00 AM EST Never Smoker completed Never S moker eCW1 ([facility]) Smoking 03/28/2020 12:00:00 AM EST Never Smoker completed Never S moker eCW1 ([facility]) Smoking 03/28/2020 12:00:00 AM EST Never Smoker completed Never S moker eCW1 ([facility]) Smoking 03/28/2020 12:00:00 AM EST Never Smoker completed Never S moker eCW1 ([facility]) Smoking 03/28/2020 12:00:00 AM EST Never Smoker completed Never S moker eCW1 ([facility]) Smoking 03/28/2020 12:00:00 AM EST Never Smoker completed Never S moker eCW1 ([facility]) Smoking 03/21/2020 10:24:52 AM EST Never smoked tobacco (findi ng) completed Never smoked tobacco (finding) JUAN DANIEL (Jhony Lowery MD [facility]) Smoking 03/20/2020 12:00:00 AM EST Never Smoker completed Never S moker eCW1 ([facility]) Smoking 03/20/2020 12:00:00 AM EST Never Smoker completed Never S moker eCW1 ([facility]) Smoking 03/20/2020 12:00:00 AM EST Never Smoker completed Never S moker eCW1 ([facility]) Smoking 03/20/2020 12:00:00 AM EST Never Smoker completed Never S moker eCW1 ([facility]) Smoking 03/20/2020 12:00:00 AM EST Never Smoker completed Never S moker eCW1 ([facility]) Smoking 03/17/2020 12:00:00 AM EST Never Smoker completed Never S moker eCW1 ([facility]) Smoking 02/17/2020 12:00:00 AM EST Never Smoker completed Never S moker eCW1 ([facility]) Smoking 02/17/2020 12:00:00 AM EST Never Smoker completed Never S moker eCW1 ([facility]) Smoking 02/17/2020 12:00:00 AM EST Never Smoker completed Never S moker eCW1 ([facility]) Smoking 01/26/2020 12:00:00 AM EDT Never Smoker completed Never S moker eCW1 ([facility]) Smoking 01/26/2020 12:00:00 AM EDT Never Smoker completed Never S moker eCW1 ([facility]) Smoking 01/26/2020 12:00:00 AM EDT Never Smoker completed Never S moker eCW1 ([facility]) Smoking 01/26/2020 12:00:00 AM EDT Never Smoker completed Never S moker eCW1 ([facility]) Smoking 01/26/2020 12:00:00 AM EDT Never Smoker completed Never S moker eCW1 ([facility]) Smoking 01/26/2020 12:00:00 AM EDT Never Smoker completed Never S moker eCW1 ([facility]) Smoking 01/24/2020 12:00:00 AM EDT Never Smoker completed Never S moker eCW1 ([facility]) Smoking 01/24/2020 12:00:00 AM EDT Never Smoker completed Never S moker eCW1 ([facility]) Smoking 11/01/2019 12:00:00 AM EDT Never Smoker completed Never S moker eCW1 ([facility]) Smoking 11/01/2019 12:00:00 AM EDT Never Smoker completed Never S moker eCW1 ([facility]) Smoking 11/01/2019 12:00:00 AM EDT Never Smoker completed Never S moker eCW1 ([facility]) Smoking 11/01/2019 12:00:00 AM EDT Never Smoker completed Never S moker eCW1 ([facility]) Smoking 11/01/2019 12:00:00 AM EDT Never Smoker completed Never S moker eCW1 ([facility]) Smoking 11/01/2019 12:00:00 AM EDT Never Smoker completed Never S moker eCW1 ([facility]) Smoking 11/01/2019 12:00:00 AM EDT Never Smoker completed Never S moker eCW1 ([facility]) Smoking 10/25/2019 12:00:00 AM EDT Never Smoker completed Never S moker eCW1 ([facility]) Smoking 10/25/2019 12:00:00 AM EDT Never Smoker completed Never S moker eCW1 ([facility]) Smoking 10/25/2019 12:00:00 AM EDT Never Smoker completed Never S moker eCW1 ([facility]) Smoking 10/25/2019 12:00:00 AM EDT Never Smoker completed Never S moker eCW1 ([facility]) Smoking 10/01/2019 12:00:00 AM EDT Never Smoker completed Never S moker eCW1 ([facility]) Smoking 10/01/2019 12:00:00 AM EDT Never Smoker completed Never S moker eCW1 ([facility]) Smoking 10/01/2019 12:00:00 AM EDT Never Smoker completed Never S moker eCW1 ([facility]) Smoking 10/01/2019 12:00:00 AM EDT Never Smoker completed Never S moker eCW1 ([facility]) Smoking 09/27/2019 12:00:00 AM EDT Never Smoker completed Never S moker eCW1 ([facility]) Smoking 09/27/2019 12:00:00 AM EDT Never Smoker completed Never S moker eCW1 ([facility]) Smoking 09/27/2019 12:00:00 AM EDT Never Smoker completed Never S moker eCW1 ([facility]) Smoking 09/27/2019 12:00:00 AM EDT Never Smoker completed Never S moker eCW1 ([facility]) Smoking 09/27/2019 12:00:00 AM EDT Never Smoker completed Never S moker eCW1 ([facility]) Smoking 09/17/2019 12:00:00 AM EDT Never Smoker completed Never S moker eCW1 ([facility]) Smoking 09/17/2019 12:00:00 AM EDT Never Smoker completed Never S moker eCW1 ([facility]) Smoking 09/17/2019 12:00:00 AM EDT Never Smoker completed Never S moker eCW1 ([facility]) Smoking 09/17/2019 12:00:00 AM EDT Never Smoker completed Never S moker eCW1 ([facility]) Smoking 09/17/2019 12:00:00 AM EDT Never Smoker completed Never S moker eCW1 ([facility]) Smoking 09/17/2019 12:00:00 AM EDT Never Smoker completed Never S moker eCW1 ([facility]) Smoking 09/17/2019 12:00:00 AM EDT Never Smoker completed Never S moker eCW1 ([facility]) Vital Signs ID Date Data Source UNK Name Value Range Interpretation Code Description Data Source(s) Body surface area Derived from formula 1.95 m2 1.95 m2 [facility] ([facility]) Body weight 83.236 kg 83.236 kg [facility] ([facility]) [employer] body weight 135 [lb_av] 135 [lb_av] MEDEN T ([facility]) Body mass index (BMI) [Ratio] 28.7 kg/m2 28.7 k g/m2 [facility] ([facility]) Body weight 183.50 [lb_av] 183.50 [lb_av] [facility] Body height 67 [in_i] 67 [in_i] [facility] ([facility]) 5'7" Heart rate 103 /min 103 /min [facility] ([facility]) Diastolic blood pressure 73 mm[Hg] 73 mm[Hg] [facility] ([facility]) Systolic blood pressure 118 mm[Hg] 118 mm[facility]Hg] [facility] Body surface area Derived from formula 1.94 m2 1.94 m2 [facility] ([facility]) Body weight 82.328 kg 82.328 kg [facility] ([facility]) [employer] body weight 135 [lb_av] 135 [lb_av] MEDEN T ([facility]) Body mass index (BMI) [Ratio] 28.4 kg/m2 28.4 k g/m2 [facility] ([facility]) Body weight 181.50 [lb_av] 181.50 [lb_av] MEDEN T ([facility]) Body height 67 [in_i] 67 [in_i] [facility] ([facility]) 5'7" Diastolic blood pressure 84 mm[Hg] 84 mm[Hg] [facility] ([facility]) Systolic blood pressure 126 mm[Hg] 126 mm[Hg] M EDENT ([facility]) Diastolic blood pressure 76 mm[Hg] 76 mm[Hg] eCW1 ([facility]) Systolic blood pressure 112 mm[Hg] 112 mm[Hg] e CW1 ([facility]) Body temperature 97.3 [degF] 97.3 [degF] eCW1 ( [facility]) Respiratory rate 17 /min 17 /min eCW1 ([facility]) Heart rate 102 /min 102 /min eCW1 ([facility]) Body mass index (BMI) [Ratio] 28.66 kg/m2 28.66 kg/m2 W1 ([facility]) Body height 67 [in_i] 67 [in_i] eCW1 ([facility]) Body weight 183 [lb_av] 183 [lb_av] eCW1 ([facility]) Body mass index (BMI) [Ratio] 25.1 kg/m2 [...] blood pressure 69 mm[Hg] 69 mm[Hg] eCW1 ([facility]) Systolic blood pressure 139 mm[Hg] 139 mm[Hg] e CW1 ([facility]) Body temperature 97.0 [degF] 97.0 [degF] eCW1 ( [facility]) Respiratory rate 18 /min 18 /min eCW1 ([facility]) Heart rate 99 /min 99 /min eCW1 ([facility]) Body mass index (BMI) [Ratio] 28.47 kg/m2 28.47 kg/m2 eCW1 ([facility]) Body height 67 [in_i] 67 [in_i] eCW1 ([facility], [facility]) Body weight 181.8 [lb_av] 181.8 [lb_av] eCW1 ([facility]) Diastolic blood pressure 68 mm[Hg] 68 mm[Hg] eCW1 ([facility]) Systolic blood pressure 126 mm[Hg] 126 mm[Hg] e CW1 ([facility]) Body temperature 98.1 [degF] 98.1 [degF] eCW1 ( [facility]) Respiratory rate 18 /min 18 /min eCW1 ([facility]) Heart rate 104 /min 104 /min eCW1 ([facility]) Body mass index (BMI) [Ratio] 27.41 kg/m2 27.41 kg/m2 eCW1 ([facility]) Body height 67 [in_i] 67 [in_i] eCW1 ([facility]) Body weight 175 [lb_av] 175 [lb_av] eCW1 ([facility]) [employer] body weight 130 [lb_av] 130 [lb_av] MEDEN T ([facility]) Body mass index (BMI) [Ratio] 27.4 kg/m2 27.4 k g/m2 MEDENT ([facility]) Body weight 170.00 [lb_av] 170.00 [lb_av] MEDEN T ([facility]) Body height 66 [in_i] 66 [in_i] [facility] 5'6" Respiratory rate 12 /min 12 /min [facility] ( [facility]) Body surface area Derived from formula 1.93 m2 1.93 m2 [facility] ([facility]) Body weight 81.251 kg 81.251 kg [facility] ([facility]) [employer] body weight 135 [lb_av] 135 [lb_av] MEDEN T ([facility]) Body mass index (BMI) [Ratio] 28.1 kg/m2 28.1 k g/m2 [facility] ([facility]) Body weight 179.12 [lb_av] 179.12 [lb_av] MEDEN T ([facility]) Body height 67 [in_i] 67 [in_i] [facility] ([facility]) 5'7" Diastolic blood pressure 79 mm[Hg] 79 mm[Hg] [facility] ([facility]) Systolic blood pressure 139 mm[Hg] 139 mm[Hg] M EDENT ([facility]) Diastolic blood pressure 70 mm[Hg] 70 mm[Hg] eCW1 ([facility]) Systolic blood pressure 116 mm[Hg] 116 mm[Hg] e CW1 ([facility]) Body temperature 97.3 [degF] 97.3 [degF] eCW1 ( [facility]) Respiratory rate 18 /min 18 /min eCW1 ([facility]) Heart rate 103 /min 103 /min eCW1 ([facility]) Body mass index (BMI) [Ratio] 27.11 kg/m2 27.11 kg/m2 W1 ([facility]) Body height 67 [in_i] 67 [in_i] eCW1 ([facility]) Body weight 173.08 [lb_av] 173.08 [lb_av] eCW1 ([facility]) Diastolic blood pressure 78 mm[Hg] 78 mm[Hg] eCW1 ([facility]) Systolic blood pressure 112 mm[Hg] 112 mm[Hg] e CW1 ([facility]) Body temperature 97.1 [degF] 97.1 [degF] eCW1 ( [facility]) Respiratory rate 18 /min 18 /min eCW1 ([facility]) Heart rate 102 /min 102 /min eCW1 ([facility]) Body mass index (BMI) [Ratio] 27.37 kg/m2 27.37 kg/m2 eCW1 ([facility]) Body height 67 [in_i] 67 [in_i] eCW1 ([facility]) Body weight 174.8 [lb_av] 174.8 [lb_av] eCW1 ([facility]) Diastolic blood pressure 68 mm[Hg] 68 mm[Hg] eCW1 ([facility]) Systolic blood pressure 147 mm[Hg] 147 mm[Hg] e CW1 ([facility]) Body temperature 97.0 [degF] 97.0 [degF] eCW1 ( [facility]) Respiratory rate 18 /min 18 /min eCW1 ([facility]) Heart rate 99 /min 99 /min eCW1 ([facility]) Body mass index (BMI) [Ratio] 27.03 kg/m2 27.03 kg/m2 eCW1 ([facility]) Body height 67 [in_i] 67 [in_i] eCW1 ([facility]) Body weight 172.6 [lb_av] 172.6 [lb_av] eCW1 ([facility]) Body surface area Derived from formula 1.90 m2 1.90 m2 MEDENT ([facility], ) Body weight 78.189 kg 78.189 kg MEDENT ([facility], ) [employer] body weight 135 [lb_av] 135 [lb_av] MEDEN T ([facility], ) Body mass index (BMI) [Ratio] 27.0 kg/m2 27.0 k g/m2 [facility] ([facility]) Body weight 172.38 [lb_av] 172.38 [lb_av] MEDEN T ([facility]) Body height 67 [in_i] 67 [in_i] [facility] ([facility]) 5'7" Diastolic blood pressure 80 mm[Hg] 80 mm[Hg] [facility] ([facility]) Systolic blood pressure 142 mm[Hg] 142 mm[Hg] [facility] ([facility]) Body weight 78.246 kg 78.246 kg [facility] ([facility]) [employer] body weight 135 [lb_av] 135 [lb_av] MEDEN T ([facility]) Body mass index (BMI) [Ratio] 27.0 kg/m2 27.0 k g/m2 [facility] ([facility]) Body weight 172.50 [lb_av] 172.50 [lb_av] MEDEN T ([facility]) Body height 67 [in_i] 67 [in_i] [facility] ([facility]) 5'7" Diastolic blood pressure 86 mm[Hg] 86 mm[Hg] [facility] ([facility]) Systolic blood pressure 151 mm[Hg] 151 mm[Hg] [facility] ([facility]) Body weight 80.401 kg 80.401 kg [facility] ([facility]) Body mass index (BMI) [Ratio] 27.8 kg/m2 27.8 k g/m2 [facility] ([facility]) Body weight 177.25 [lb_av] 177.25 [lb_av] MEDEN T ([facility]) Body height 67 [in_i] 67 [in_i] [facility] ([facility]) 5'7" Diastolic blood pressure 76 mm[Hg] 76 mm[Hg] [facility] ([facility]) Systolic blood pressure 148 mm[Hg] 148 mm[Hg] [facility] ([facility]) Body weight 76.205 kg 76.205 kg [facility] ([facility]) Body mass index (BMI) [Ratio] 26.3 kg/m2 26.3 k g/m2 [facility] ([facility]) Body weight 168.00 [lb_av] 168.00 [lb_av] MEDEN T ([facility]) Body height 67 [in_i] 67 [in_i] [facility] ([facility]) 5'7" Diastolic blood pressure 82 mm[Hg] 82 mm[Hg] [facility] ([facility]) Systolic blood pressure 130 mm[Hg] 130 mm[Hg] M EDENT ([facility]) Diastolic blood pressure 70 mm[Hg] 70 mm[Hg] eCW1 ([facility]) Systolic blood pressure 112 mm[Hg] 112 mm[Hg] e CW1 ([facility]) Body temperature 97.1 [degF] 97.1 [degF] eCW1 ( [facility]) Respiratory rate 18 /min 18 /min eCW1 ([facility]) Heart rate 105 /min 105 /min eCW1 ([facility]) Body mass index (BMI) [Ratio] 26.40 kg/m2 26.40 kg/m2 W1 ([facility]) Body height 67 [in_i] 67 [in_i] eCW1 ([facility]) Body weight 168.6 [lb_av] 168.6 [lb_av] eCW1 ([facility]) Diastolic blood pressure 86 mm[Hg] 86 mm[Hg] eCW1 ([facility]) Systolic blood pressure 132 mm[Hg] 132 mm[Hg] e CW1 ([facility]) Body temperature 97.3 [degF] 97.3 [degF] eCW1 ( [facility]) Respiratory rate 18 /min 18 /min eCW1 ([facility]) Heart rate 94 /min 94 /min eCW1 ([facility]) Body mass index (BMI) [Ratio] 26.22 kg/m2 26.22 kg/m2 W1 ([facility]) Body height 67 [in_i] 67 [in_i] eCW1 ([facility]) Body weight 167.4 [lb_av] 167.4 [lb_av] eCW1 ([facility]) Diastolic blood pressure 56 mm[Hg] 56 mm[Hg] eCW1 ([facility]) Systolic blood pressure 122 mm[Hg] 122 mm[Hg] e CW1 ([facility]) Body temperature 98.0 [degF] 98.0 [degF] eCW1 ( [facility]) Respiratory rate 18 /min 18 /min eCW1 ([facility]) Heart rate 88 /min 88 /min eCW1 ([facility]) Body mass index (BMI) [Ratio] 24.81 kg/m2 24.81 kg/m2 eCW1 ([facility]) Body height 67 [in_i] 67 [in_i] eCW1 ([facility]) Body weight 158.4 [lb_av] 158.4 [lb_av] eCW1 ([facility]) Diastolic blood pressure 60 mm[Hg] 60 mm[Hg] eCW1 ([facility]) Systolic blood pressure 138 mm[Hg] 138 mm[Hg] e CW1 ([facility]) Body temperature 97.3 [degF] 97.3 [degF] eCW1 ( [facility]) Respiratory rate 18 /min 18 /min eCW1 ([facility]) Heart rate 98 /min 98 /min eCW1 ([facility]) Body mass index (BMI) [Ratio] 24.77 kg/m2 24.77 kg/m2 eCW1 ([facility]) Body height 67 [in_i] 67 [in_i] eCW1 ([facility], [facility]) Body weight 158.2 [lb_av] 158.2 [lb_av] eCW1 ([facility]) Diastolic blood pressure 60 mm[Hg] 60 mm[Hg] eCW1 ([facility]) Systolic blood pressure 108 mm[Hg] 108 mm[Hg] e CW1 ([facility]) Body temperature 97.1 [degF] 97.1 [degF] eCW1 ( [facility]) Respiratory rate 18 /min 18 /min eCW1 ([facility]) Heart rate 82 /min 82 /min eCW1 ([facility]) Body mass index (BMI) [Ratio] 24.27 kg/m2 24.27 kg/m2 eCW1 ([facility]) Body height 67 [in_i] 67 [in_i] eCW1 ([facility]) Body weight 155 [lb_av] 155 [lb_av] eCW1 ([facility]) Diastolic blood pressure 80 mm[Hg] 80 mm[Hg] eCW1 ([facility]) Systolic blood pressure 126 mm[Hg] 126 mm[Hg] e CW1 ([facility]) Body temperature 98.9 [degF] 98.9 [degF] eCW1 ( [facility]) Respiratory rate 20 /min 20 /min eCW1 ([facility]) Heart rate 110 /min 110 /min eCW1 ([facility]) Body mass index (BMI) [Ratio] 23.74 kg/m2 23.74 kg/m2 eCW1 ([facility]) Body height 67 [in_i] 67 [in_i] eCW1 ([facility]) Body weight 151.6 [lb_av] 151.6 [lb_av] eCW1 ([facility]) Diastolic blood pressure 72 mm[Hg] 72 mm[Hg] eCW1 ([facility]) Systolic blood pressure 128 mm[Hg] 128 mm[Hg] e CW1 ([facility]) Body temperature 97.8 [degF] 97.8 [degF] eCW1 ( [facility]) Respiratory rate 18 /min 18 /min eCW1 ([facility]) Heart rate 89 /min 89 /min eCW1 ([facility]) Body mass index (BMI) [Ratio] 22.96 kg/m2 22.96 kg/m2 eCW1 ([facility]) Body height 67 [in_i] 67 [in_i] eCW1 ([facility]) Body weight 146.6 [lb_av] 146.6 [lb_av] eCW1 ([facility]) Diastolic blood pressure 60 mm[Hg] 60 mm[Hg] eCW1 ([facility]) Systolic blood pressure 112 mm[Hg] 112 mm[Hg] e CW1 ([facility]) Body temperature 98.1 [degF] 98.1 [degF] eCW1 ( [facility]) Respiratory rate 18 /min 18 /min eCW1 ([facility]) Heart rate 87 /min 87 /min eCW1 ([facility]) Body mass index (BMI) [Ratio] 24.02 kg/m2 24.02 kg/m2 eCW1 ([facility]) Body height 67 [in_i] 67 [in_i] eCW1 ([facility] [facility] Body weight 153.4 [lb_av] 153.4 [lb_av] eCW1 ([facility]) Diastolic blood pressure 60 mm[Hg] 60 mm[Hg] eCW1 ([facility]) Systolic blood pressure 108 mm[Hg] 108 mm[Hg] e CW1 ([facility]) Body temperature 96.7 [degF] 96.7 [degF] eCW1 ( [facility]) Respiratory rate 18 /min 18 /min eCW1 ([facility]) Heart rate 87 /min 87 /min eCW1 ([facility]) Body mass index (BMI) [Ratio] 23.77 kg/m2 23.77 kg/m2 eCW1 ([facility]) Body height 67 [in_us] 67 [in_us] eCW1 (Formerly [facility], [facility]) Body weight Measured 151.8 [lb_av] 151.8 [lb_av ] eCW1 ([facility]) Diastolic blood pressure 58 mm[Hg] 58 mm[Hg] eCW1 ([facility]) Systolic blood pressure 112 mm[Hg] 112 mm[Hg] e CW1 ([facility]) Body temperature 97.4 [degF] 97.4 [degF] eCW1 ( [facility]) Respiratory rate 18 /min 18 /min eCW1 ([facility]ly [facility]) Heart rate 92 /min 92 /min eCW1 ([facility]) Body mass index (BMI) [Ratio] 23.71 kg/m2 23.71 kg/m2 eCW1 ([facility]) Body height 67 [in_us] 67 [in_us] eCW1 ([facility]ly [facility], [facility]) Body weight Measured 151.4 [lb_av] 151.4 [lb_av ] eCW1 ([facility]) Diastolic blood pressure 53 mm[Hg] 53 mm[Hg] eCW1 ([facility]) Systolic blood pressure 92 mm[Hg] 92 mm[Hg] e CW1 ([facility]) Body temperature 98.2 [degF] 98.2 [degF] eCW1 ( [facility]) Respiratory rate 16 /min 16 /min eCW1 ([facility]ly [facility]) Heart rate 80 /min 80 /min eCW1 ([facility]) Body mass index (BMI) [Ratio] 24.74 kg/m2 24.74 kg/m2 W1 ([facility]) Body height 67 [in_us] 67 [in_us] eCW1 ([facility]ly [facility], [facility]) Body weight Measured 158.0 [lb_av] 158.0 [lb_av ] eCW1 ([facility]) Diastolic blood pressure 58 mm[Hg] 58 mm[Hg] eCW1 ([facility]) Systolic blood pressure 108 mm[Hg] 108 mm[Hg] e CW1 ([facility]) Body temperature 97.5 [degF] 97.5 [degF] eCW1 ( [facility]) Respiratory rate 18 /min 18 /min eCW1 ([facility]ly [facility]) Heart rate 86 /min 86 /min eCW1 ([facility]) Body mass index (BMI) [Ratio] 24.34 kg/m2 24.34 kg/m2 eCW1 ([facility]) Body height 67 [in_i] 67 [in_i] eCW1 ([facility], [facility]) Body weight 155.4 [lb_av] 155.4 [lb_av] eCW1 ([facility]) Body mass index (BMI) [Ratio] 21.1 kg/m2 [...] Topical Cream 05/12/2020 12:00:00 AM EST eCW1 ([facility]) Mometasone Furoate 50 MCG/ACT 04/12/2020 12:00:00 AM EST eCW1 ([facility]) Doxycycline Monohydrate 100 MG Oral Capsule 04/12/2020 12:00:00 AM EST eCW1 ([facility]) mesalamine 1000 MG Rectal Suppository 04/12/2020 12:00:00 AM EST eCW1 ([facility]) Mometasone Furoate 50 MCG/ACT 04/12/2020 12:00:00 AM EST eCW1 ([facility]) Doxycycline Monohydrate 100 MG Oral Capsule 04/12/2020 12:00:00 AM EST eCW1 ([facility]) mesalamine 1000 MG Rectal Suppository 04/12/2020 12:00:00 AM EST eCW1 ([facility]) Mometasone Furoate 50 MCG/ACT 04/12/2020 12:00:00 AM EST eCW1 ([facility]) mesalamine 1000 MG Rectal Suppository 04/12/2020 12:00:00 AM EST eCW1 ([facility]) Mometasone Furoate 50 MCG/ACT 04/12/2020 12:00:00 AM EST eCW1 ([facility]) Doxycycline Monohydrate 100 MG Oral Capsule 04/12/2020 12:00:00 AM EST eCW1 ([facility]) mesalamine 1000 MG Rectal Suppository 04/12/2020 12:00:00 AM EST eCW1 ([facility]) Mometasone Furoate 50 MCG/ACT 04/12/2020 12:00:00 AM EST eCW1 ([facility]) Doxycycline Monohydrate 100 MG Oral Capsule 04/12/2020 12:00:00 AM EST eCW1 ([facility]) mesalamine 1000 MG Rectal Suppository 04/12/2020 12:00:00 AM EST eCW1 ([facility]) Mometasone Furoate 50 MCG/ACT 04/12/2020 12:00:00 AM EST eCW1 ([facility]) Doxycycline Monohydrate 100 MG Oral Capsule 04/12/2020 12:00:00 AM EST eCW1 ([facility]) mesalamine 1000 MG Rectal Suppository 04/12/2020 12:00:00 AM EST eCW1 ([facility]) Mometasone Furoate 50 MCG/ACT 04/12/2020 12:00:00 AM EST eCW1 ([facility]) Doxycycline Monohydrate 100 MG Oral Capsule 04/12/2020 12:00:00 AM EST eCW1 ([facility]) mesalamine 1000 MG Rectal Suppository 04/12/2020 12:00:00 AM EST eCW1 ([facility]) Mometasone Furoate 50 MCG/ACT 04/12/2020 12:00:00 AM EST eCW1 ([facility]) Doxycycline Monohydrate 100 MG Oral Capsule 04/12/2020 12:00:00 AM EST eCW1 ([facility]) mesalamine 1000 MG Rectal Suppository 04/12/2020 12:00:00 AM EST eCW1 ([facility]) Mometasone Furoate 50 MCG/ACT 04/12/2020 12:00:00 AM EST eCW1 ([facility]) Doxycycline Monohydrate 100 MG Oral Capsule 04/12/2020 12:00:00 AM EST eCW1 ([facility]) mesalamine 1000 MG Rectal Suppository 04/12/2020 12:00:00 AM EST eCW1 ([facility]) Mometasone Furoate 50 MCG/ACT 04/12/2020 12:00:00 AM EST eCW1 ([facility]) Doxycycline Monohydrate 100 MG Oral Capsule 04/12/2020 12:00:00 AM EST eCW1 ([facility]) Doxycycline Monohydrate 100 MG Oral Capsule 04/12/2020 12:00:00 AM EST eCW1 ([facility]) mesalamine 1000 MG Rectal Suppository 04/12/2020 12:00:00 AM EST eCW1 ([facility]) mesalamine 1000 MG Rectal Suppository 04/12/2020 12:00:00 AM EST eCW1 ([facility]) Mometasone Furoate 50 MCG/ACT 04/12/2020 12:00:00 AM EST eCW1 ([facility]) Doxycycline Monohydrate 100 MG Oral Capsule 04/12/2020 12:00:00 AM EST eCW1 ([facility]) Mometasone Furoate 50 MCG/ACT 04/12/2020 12:00:00 AM EST eCW1 ([facility]) mesalamine 1000 MG Rectal Suppository 04/12/2020 12:00:00 AM EST eCW1 ([facility]) Doxycycline Monohydrate 100 MG Oral Capsule 04/12/2020 12:00:00 AM EST eCW1 ([facility]) Doxycycline Monohydrate 100 MG Oral Capsule 04/12/2020 12:00:00 AM EST eCW1 ([facility]) Mometasone Furoate 50 MCG/ACT 04/12/2020 12:00:00 AM EST eCW1 ([facility]) mesalamine 1000 MG Rectal Suppository 04/12/2020 12:00:00 AM EST eCW1 ([facility]) Doxycycline Monohydrate 100 MG Oral Capsule 04/12/2020 12:00:00 AM EST eCW1 ([facility]) Mometasone Furoate 50 MCG/ACT 04/12/2020 12:00:00 AM EST eCW1 ([facility]) mesalamine 1000 MG Rectal Suppository 04/12/2020 12:00:00 AM EST eCW1 ([facility]) Doxycycline Monohydrate 100 MG Oral Capsule 04/12/2020 12:00:00 AM EST eCW1 ([facility]) Mometasone Furoate 50 MCG/ACT 04/12/2020 12:00:00 AM EST eCW1 ([facility]) mesalamine 1000 MG Rectal Suppository 04/12/2020 12:00:00 AM EST eCW1 ([facility]) doxycycline hyclate 100 MG Oral Tablet 03/20/2020 12:00:00 AM EST eCW1 ([facility]) doxycycline hyclate 100 MG Oral Tablet 03/20/2020 12:00:00 AM EST eCW1 ([facility]) doxycycline hyclate 100 MG Oral Tablet 03/20/2020 12:00:00 AM EST eCW1 ([facility]) doxycycline hyclate 100 MG Oral Tablet 03/20/2020 12:00:00 AM EST eCW1 ([facility]) doxycycline hyclate 100 MG Oral Tablet 03/20/2020 12:00:00 AM EST eCW1 ([facility]) 3 ML liraglutide 6 MG/ML Pen Injector [Victoza] 03/17/2020 12:00:00 AM EST eCW1 ([facility]) 3 ML liraglutide 6 MG/ML Pen Injector [Victoza] 03/17/2020 12:00:00 AM EST eCW1 ([facility]) 3 ML liraglutide 6 MG/ML Pen Injector [Victoza] 03/17/2020 12:00:00 AM EST eCW1 ([facility]) 3 ML liraglutide 6 MG/ML Pen Injector [Victoza] 03/17/2020 12:00:00 AM EST eCW1 ([facility]) 3 ML liraglutide 6 MG/ML Pen Injector [Victoza] 03/17/2020 12:00:00 AM EST eCW1 ([facility]) 3 ML liraglutide 6 MG/ML Pen Injector [Victoza] 03/17/2020 12:00:00 AM EST eCW1 ([facility]) 3 ML liraglutide 6 MG/ML Pen Injector [Victoza] 03/17/2020 12:00:00 AM EST eCW1 ([facility]) 3 ML liraglutide 6 MG/ML Pen Injector [Victoza] 03/17/2020 12:00:00 AM EST eCW1 ([facility]) 3 ML liraglutide 6 MG/ML Pen Injector [Victoza] 03/17/2020 12:00:00 AM EST eCW1 ([facility]) 3 ML liraglutide 6 MG/ML Pen Injector [Victoza] 03/17/2020 12:00:00 AM EST eCW1 ([facility]) 3 ML liraglutide 6 MG/ML Pen Injector [Victoza] 03/17/2020 12:00:00 AM EST eCW1 ([facility]) 3 ML liraglutide 6 MG/ML Pen Injector [Victoza] 03/17/2020 12:00:00 AM EST eCW1 ([facility]) 3 ML liraglutide 6 MG/ML Pen Injector [Victoza] 03/17/2020 12:00:00 AM EST eCW1 ([facility]) 3 ML liraglutide 6 MG/ML Pen Injector [Victoza] 03/17/2020 12:00:00 AM EST eCW1 ([facility]) 3 ML liraglutide 6 MG/ML Pen Injector [Victoza] 03/17/2020 12:00:00 AM EST eCW1 ([facility]) 3 ML liraglutide 6 MG/ML Pen Injector [Victoza] 03/17/2020 12:00:00 AM EST eCW1 ([facility]) Sodium Chloride 0.9 % 03/17/2020 12:00:00 AM EST eCW1 ([facility]) 3 ML liraglutide 6 MG/ML Pen Injector [Victoza] 03/17/2020 12:00:00 AM EST eCW1 ([facility]) ciclopirox 80 MG/ML Topical Solution 03/17/2020 12:00:00 AM EST eCW1 ([facility]) Doxycycline Monohydrate 100 MG Oral Tablet 01/24/2020 12:00:00 AM E DT eCW1 ([facility]) Doxycycline Monohydrate 100 MG Oral Tablet 01/24/2020 12:00:00 AM E DT eCW1 ([facility]) Estradiol 0.1 MG/ML Vaginal Cream 10/15/2019 12:00:00 AM EDT eCW1 ([facility]) Estradiol 0.1 MG/ML Vaginal Cream 10/15/2019 12:00:00 AM EDT eCW1 ([facility]) Estradiol 0.1 MG/ML Vaginal Cream 10/15/2019 12:00:00 AM EDT eCW1 ([facility]) Estradiol 0.1 MG/ML Vaginal Cream 10/15/2019 12:00:00 AM EDT eCW1 ([facility]) Estradiol 0.1 MG/ML Vaginal Cream 10/15/2019 12:00:00 AM EDT eCW1 ([facility]) Estradiol 0.1 MG/ML Vaginal Cream 10/15/2019 12:00:00 AM EDT eCW1 ([facility]) Estradiol 0.1 MG/ML Vaginal Cream 10/15/2019 12:00:00 AM EDT eCW1 ([facility]) Estrogens, Conjugated ([facility]) 0.625 MG/ML Vaginal Cream [Premarin] 10/01/2019 12:00:00 AM EDT eCW1 ([facility]) Estrogens, Conjugated ([facility]) 0.625 MG/ML Vaginal Cream [Premarin] 10/01/2019 12:00:00 AM EDT eCW1 ([facility]) Estrogens, Conjugated ([facility]) 0.625 MG/ML Vaginal Cream [Premarin] 10/01/2019 12:00:00 AM EDT eCW1 ([facility]) Estrogens, Conjugated ([facility]) 0.625 MG/ML Vaginal Cream [Premarin] 10/01/2019 12:00:00 AM EDT eCW1 ([facility]) Hydromorphone Hydrochloride 4 MG Oral Tablet 09/17/2019 12:00:00 AM EDT eCW1 ([facility]) Hydromorphone Hydrochloride 4 MG Oral Tablet 09/17/2019 12:00:00 AM EDT eCW1 ([facility]) Hydromorphone Hydrochloride 4 MG Oral Tablet 09/17/2019 12:00:00 AM EDT eCW1 ([facility]) Hydromorphone Hydrochloride 4 MG Oral Tablet 09/17/2019 12:00:00 AM EDT eCW1 ([facility]) Hydromorphone Hydrochloride 4 MG Oral Tablet 09/17/2019 12:00:00 AM EDT eCW1 ([facility]) Hydromorphone Hydrochloride 4 MG Oral Tablet 09/17/2019 12:00:00 AM EDT eCW1 ([facility]) Hydromorphone Hydrochloride 4 MG Oral Tablet 09/17/2019 12:00:00 AM EDT eCW1 ([facility]) Hydromorphone Hydrochloride 4 MG Oral Tablet 09/17/2019 12:00:00 AM EDT eCW1 ([facility]) Hydromorphone Hydrochloride 4 MG Oral Tablet 09/17/2019 12:00:00 AM EDT eCW1 ([facility]) Metronidazole 500 MG Oral Tablet 09/10/2019 12:00:00 AM EDT eCW1 ([facility]) Hydromorphone Hydrochloride 4 MG Oral Tablet 09/09/2019 12:00:00 AM EDT eCW1 ([facility]) Hydromorphone Hydrochloride 4 MG Oral Tablet 09/01/2019 12:00:00 AM EDT eCW1 ([facility]) Hydromorphone Hydrochloride 4 MG Oral Tablet 08/28/2019 12:00:00 AM EDT eCW1 ([facility]) Hydromorphone Hydrochloride 4 MG Oral Tablet 08/20/2019 12:00:00 AM EDT eCW1 ([facility]) Hydromorphone Hydrochloride 4 MG Oral Tablet 08/11/2019 12:00:00 AM EDT eCW1 ([facility]) tizanidine 2 MG Oral Tablet 07/28/2019 12:00:00 AM EDT eCW1 ([facility]) Hydromorphone Hydrochloride 4 MG Oral Tablet 07/28/2019 12:00:00 AM EDT eCW1 ([facility]) Doxycycline Monohydrate 100 MG Oral Capsule 07/26/2019 12:00:00 AM EDT eCW1 ([facility]) Pen [place] 5/16" 07/22/2019 12:00:00 AM EDT eCW1 ([facility]) Pen [place] 5/16" 07/22/2019 12:00:00 AM EDT eCW1 ([facility]) Pen [place] 5/16" 07/22/2019 12:00:00 AM EDT eCW1 ([facility]) Pen [place] 5/16" 07/22/2019 12:00:00 AM EDT eCW1 ([facility]) Pen [place] 5/16" 07/22/2019 12:00:00 AM EDT eCW1 ([facility]) Pen [place] 5/16" 07/22/2019 12:00:00 AM EDT eCW1 ([facility]) Pen [place] 5/16" 07/22/2019 12:00:00 AM EDT eCW1 ([facility]) Pen [place] 5/16" 07/22/2019 12:00:00 AM EDT eCW1 ([facility]) Levemir Flex Touch 100 UNIT/ML 07/16/2019 12:00:00 AM EDT eCW1 ([facility]) Levemir Flex Touch 100 UNIT/ML 07/16/2019 12:00:00 AM EDT eCW1 ([facility]) Levemir Flex Touch 100 UNIT/ML 07/16/2019 12:00:00 AM EDT eCW1 ([facility]) Levemir Flex Touch 100 UNIT/ML 07/16/2019 12:00:00 AM EDT eCW1 ([facility]) Levemir Flex Touch 100 UNIT/ML 07/16/2019 12:00:00 AM EDT eCW1 ([facility]) Levemir Flex Touch 100 UNIT/ML 07/16/2019 12:00:00 AM EDT eCW1 ([facility]) Levemir Flex Touch 100 UNIT/ML 07/16/2019 12:00:00 AM EDT eCW1 ([facility]) Levemir Flex Touch 100 UNIT/ML 07/16/2019 12:00:00 AM EDT eCW1 ([facility]) Levemir Flex Touch 100 UNIT/ML 07/16/2019 12:00:00 AM EDT eCW1 ([facility]) Levemir Flex Touch 100 UNIT/ML 07/16/2019 12:00:00 AM EDT eCW1 ([facility]) Levemir Flex Touch 100 UNIT/ML 07/16/2019 12:00:00 AM EDT eCW1 ([facility]) Levemir Flex Touch 100 UNIT/ML 07/16/2019 12:00:00 AM EDT eCW1 ([facility]) Levemir Flex Touch 100 UNIT/ML 07/16/2019 12:00:00 AM EDT eCW1 ([facility]) Levemir Flex Touch 100 UNIT/ML 07/16/2019 12:00:00 AM EDT eCW1 ([facility]) Levemir Flex Touch 100 UNIT/ML 07/16/2019 12:00:00 AM EDT eCW1 ([facility]) Levemir Flex Touch 100 UNIT/ML 07/16/2019 12:00:00 AM EDT eCW1 ([facility]) Levemir Flex Touch 100 UNIT/ML 07/16/2019 12:00:00 AM EDT eCW1 ([facility]) Levemir Flex Touch 100 UNIT/ML 07/16/2019 12:00:00 AM EDT eCW1 ([facility]) Levemir Flex Touch 100 UNIT/ML 07/16/2019 12:00:00 AM EDT eCW1 ([facility]) Levemir Flex Touch 100 UNIT/ML 07/16/2019 12:00:00 AM EDT eCW1 ([facility]) Hydromorphone Hydrochloride 4 MG Oral Tablet 07/16/2019 12:00:00 AM EDT eCW1 ([facility]) Nystatin 100 UNT/MG Topical Powder 07/16/2019 12:00:00 AM EDT eCW1 ([facility]) Levemir Flex Touch 100 UNIT/ML 07/16/2019 12:00:00 AM EDT eCW1 ([facility]) Hydromorphone Hydrochloride 4 MG Oral Tablet 07/09/2019 12:00:00 AM EDT eCW1 ([facility]) Alcohol Prep Pad 70 % 07/05/2019 12:00:00 AM EDT eCW1 ([facility]) Alcohol Prep Pad 70 % 07/05/2019 12:00:00 AM EDT eCW1 ([facility]) Alcohol Prep Pad 70 % 07/05/2019 12:00:00 AM EDT eCW1 ([facility]) Alcohol Prep Pad 70 % 07/05/2019 12:00:00 AM EDT eCW1 ([facility]) Alcohol Prep Pad 70 % 07/05/2019 12:00:00 AM EDT eCW1 ([facility]) Alcohol Prep Pad 70 % 07/05/2019 12:00:00 AM EDT eCW1 ([facility]) Alcohol Prep Pad 70 % 07/05/2019 12:00:00 AM EDT eCW1 ([facility]) Alcohol Prep Pad 70 % 07/05/2019 12:00:00 AM EDT eCW1 ([facility]) Alcohol Prep Pad 70 % 07/05/2019 12:00:00 AM EDT eCW1 ([facility]) Alcohol Prep Pad 70 % 07/05/2019 12:00:00 AM EDT eCW1 ([facility]) Metoclopramide 10 MG Oral Tablet 07/03/2019 12:00:00 AM EDT eCW1 ([facility]) ammonium lactate 120 MG/ML Topical Cream 07/03/2019 12:00:00 AM EDT eCW1 ([facility]) Metoclopramide 10 MG Oral Tablet 07/03/2019 12:00:00 AM EDT eCW1 ([facility]) ammonium lactate 120 MG/ML Topical Cream 07/03/2019 12:00:00 AM EDT eCW1 ([facility]) Metoclopramide 10 MG Oral Tablet 07/03/2019 12:00:00 AM EDT eCW1 ([facility]) ammonium lactate 120 MG/ML Topical Cream 07/03/2019 12:00:00 AM EDT eCW1 ([facility]) Metoclopramide 10 MG Oral Tablet 07/03/2019 12:00:00 AM EDT eCW1 ([facility]) ammonium lactate 120 MG/ML Topical Cream 07/03/2019 12:00:00 AM EDT eCW1 ([facility]) Metoclopramide 10 MG Oral Tablet 07/03/2019 12:00:00 AM EDT eCW1 ([facility]) ammonium lactate 120 MG/ML Topical Cream 07/03/2019 12:00:00 AM EDT eCW1 ([facility]) Metoclopramide 10 MG Oral Tablet 07/03/2019 12:00:00 AM EDT eCW1 ([facility]) ammonium lactate 120 MG/ML Topical Cream 07/03/2019 12:00:00 AM EDT eCW1 ([facility]) Metoclopramide 10 MG Oral Tablet 07/03/2019 12:00:00 AM EDT eCW1 ([facility]) ammonium lactate 120 MG/ML Topical Cream 07/03/2019 12:00:00 AM EDT eCW1 ([facility]) Metoclopramide 10 MG Oral Tablet 07/03/2019 12:00:00 AM EDT eCW1 ([facility]) ammonium lactate 120 MG/ML Topical Cream 07/03/2019 12:00:00 AM EDT eCW1 ([facility]) Metoclopramide 10 MG Oral Tablet 07/03/2019 12:00:00 AM EDT eCW1 ([facility]) ammonium lactate 120 MG/ML Topical Cream 07/03/2019 12:00:00 AM EDT eCW1 ([facility]) Metoclopramide 10 MG Oral Tablet 07/03/2019 12:00:00 AM EDT eCW1 ([facility]) Metoclopramide 10 MG Oral Tablet 07/03/2019 12:00:00 AM EDT eCW1 ([facility]) ammonium lactate 120 MG/ML Topical Cream 07/03/2019 12:00:00 AM EDT eCW1 ([facility]) Metoclopramide 10 MG Oral Tablet 07/03/2019 12:00:00 AM EDT eCW1 ([facility]) ammonium lactate 120 MG/ML Topical Cream 07/03/2019 12:00:00 AM EDT eCW1 ([facility]) ammonium lactate 120 MG/ML Topical Cream 07/03/2019 12:00:00 AM EDT eCW1 ([facility]) Metoclopramide 10 MG Oral Tablet 07/03/2019 12:00:00 AM EDT eCW1 ([facility]) ammonium lactate 120 MG/ML Topical Cream 07/03/2019 12:00:00 AM EDT eCW1 ([facility]) Metoclopramide 10 MG Oral Tablet 07/03/2019 12:00:00 AM EDT eCW1 ([facility]) ammonium lactate 120 MG/ML Topical Cream 07/03/2019 12:00:00 AM EDT eCW1 ([facility]) Metoclopramide 10 MG Oral Tablet 07/03/2019 12:00:00 AM EDT eCW1 ([facility]) ammonium lactate 120 MG/ML Topical Cream 07/03/2019 12:00:00 AM EDT eCW1 ([facility]) Metoclopramide 10 MG Oral Tablet 07/03/2019 12:00:00 AM EDT eCW1 ([facility]) Hydromorphone Hydrochloride 4 MG Oral Tablet 07/03/2019 12:00:00 AM EDT eCW1 ([facility]) Glucometer 06/24/2019 12:00:00 AM EDT e CW1 ([facility]) Lancets Misc. - 06/24/2019 12:00:00 AM EDT eCW1 ([facility]) Test Strips - 06/24/2019 12:00:00 AM EDT eCW1 ([facility]) Hydromorphone Hydrochloride 4 MG Oral Tablet 06/24/2019 12:00:00 AM EDT eCW1 ([facility]) Hydromorphone Hydrochloride 4 MG Oral Tablet 06/17/2019 12:00:00 AM EST eCW1 ([facility]) Hydromorphone Hydrochloride 4 MG Oral Tablet 06/11/2019 12:00:00 AM EST eCW1 ([facility]) Hospital bed 06/02/2019 12:00:00 AM EST e CW1 ([facility]) Hydromorphone Hydrochloride 4 MG Oral Tablet 05/26/2019 12:00:00 AM EST eCW1 ([facility]) Hydromorphone Hydrochloride 4 MG Oral Tablet 05/13/2019 12:00:00 AM EST eCW1 ([facility]) Hydromorphone HCl 4 MG 05/05/2019 12:00:00 AM EST eCW1 ([facility]) Hydromorphone Hydrochloride 4 MG Oral Tablet 05/01/2019 12:00:00 AM EST eCW1 ([facility]) Hydromorphone Hydrochloride 4 MG Oral Tablet 04/22/2019 12:00:00 AM EST eCW1 ([facility]) Doxycycline Monohydrate 100 MG Oral Tablet 04/20/2019 12:00:[address] eCW1 ([facility]) Hydromorphone Hydrochloride 4 MG Oral Tablet 04/13/2019 12:00:00 AM EST eCW1 ([facility]) Hydromorphone Hydrochloride 4 MG Oral Tablet 04/02/2019 12:00:00 AM EST eCW1 ([facility]) Spiriva Respimat 1.25 mcg/actuation inhalation mist 11/12/19 19 08:21:22 AM EDT JUAN DANIEL ([facility])
[2020-05-28 10:18] VITALS: BP 127/67
== END 2020-05-28 10:19 | disposition home or self-care (01) ==
LOC: M ED 09:06
DX: Z79.2 Long term (current) use of antibiotics (principal)
CPT/HCPCS: 99283; J0696

== ENCOUNTER → 2020-06-01 | Outpatient (CLI) | payer OTHER | LOC: M LABSMTC 13:22 | PROVIDERS: ATTEND Anesthesiology | DX: Z20.822 Contact with and (suspected) exposure to COVID-19 (principal) ==

== ENCOUNTER → 2020-06-06 | Outpatient (CLI) | payer OTHER ==
[~2020-06-06] MED LIST changes: +BUPIVACAINE HCL 0.25% 10ML VIAL As Ordered ONE; +BUPIVACAINE HCL 0.25% 30ML VIAL As Ordered ONE; +TRIAMCINOLONE ACETONIDE SUSP 40 MG/ML VIAL (J3301) As Ordered ONE
--- NOTE | 2020-06-08 00:38 | ECWPNPC ---
PATIENT NAME: GLENN FELDER : 1960 GENDER: FEMALE VISIT DATE: 06/06/2020 DISCHARGE DATE: 06/06/20 1014 VISIT LOCKED DATE TIME: PHYSICIAN: ELLIS HECTOR MD RESOURCE: ELLIS HECTOR MD REASON FOR APPOINTMENT 1. TRIGGER POINT INJECTIONS BILATEAL NECK AND BILATERAL OCCIPIAL HISTORY OF PRESENT ILLNESS GENERAL: -. FALL RISK SCREENING: SCREENING :TWO OR MORE FALLS WITH INJURY IN THE PAST YEAR PAIN SCREENING: PATIENT HAS A COMPLAINT OF ACUTE OR CHRONIC PAIN :YES LOCATION OF PAIN:NECK POSTERIOR NECK/HEAD INTENSITY OF PAIN (SCALE OF 1 TO 10):10 WHAT DOES YOUR PAIN FEEL LIKE:ACHING, BURNING, CONTINOUS, SHARP, STABBING, TENDER, THROBBING, SORE DURATION:CONTINOUS, CONSTANT PAIN IS INCREASED BY:ACTIVITIES PAIN IS DECREASED BY: "NOTHING BUT TRIGGER POINTS" PER PATIENT NURSING NOTE: -. PAIN CENTER INTAKE QUESTIONS: DO YOU HAVE A HISTORY OF MRSA? :NO DO YOU TAKE A BLOOD THINNERS? :NO DO YOU HAVE ANY BLEEDING DISORDERS? :NO ANY NEW NUMBNESS OR WEAKNESS IN YOUR LEGS OR ARMS? :NO ANY PACEMAKER,DEFIBRILLATOR, OR DORSAL COLUMN STIMULATOR? :YES DORSAL COLUMN STIMULATOR DO YOU HAVE ANY RASHES OR OPEN SORES? :NO ARE YOU ALLERGIC TO IV DYE? :YES ARE YOU DIABETIC? :YES 0130 97 FSBS ANY NEW PROBLEMS WITH YOUR MEDICATIONS? :NO HAVE YOU RECEIVED A VACCINE IN THE PAST 30 DAYS? :NO DO YOU PLAN TO RECEIVE A VACCINE IN THE NEXT 21 DAYS? :NO DO YOU TAKE ANY IMMUNOSUPPRESSIVE MEDICATIONS? :NO ANY HISTORY OF SEIZURES? :NO ANY HISTORY OF CARDIAC ISSUES OR EVENTS? :NO DO YOU HAVE SLEEP APNEA? :NO ANY RECENT HEAD INJURY? :NO DO YOU HAVE ANY NEW INFECTIONS? :NO IS THERE A CHANCE YOU COULD BE ? :NO ARE YOU BREAST FEEDING? :NO WHEN DID YOU LAST EAT? : -199906/05/20 WHEN DID YOU LAST DRINK? : -199906/05/20 WHAT DID YOU LAST DRINK? : - NAME OF PERSON DRIVING YOU HOME? : -[facility] DO YOU HAVE ANY OTHER QUESTIONS OR CONCERNS? : -NO CURRENT MEDICATIONS TAKING IPRATROPIUM-ALBUTEROL 0.5-2.5 (3) MG/3ML SOLUTION 3 ML INHALATION EVERY 6 HRS PRN TAKING PEDIALYTE BOTTLE SOLUTION 330 ML ORALLY THREE TIMES DAILY TAKING MAY SAVAGE BAGS CLEAR VELCRO CLOSER ([id number]) ICD:V55.3 CHANGE NEEDED (EDUARD) TAKING MAY HAVE SAVAGE WAFERS NEW IMAGE SKIN BARRIERS FLATING FLANGES ICD: V55.3 ([id number] 2 1/2 CHANGE NEEDED (EDUARD) TAKING BABY WIPES 1 MISCELLANEOUS DIRECTED TOPICALLY PRN DX:569.62 TAKING SYRINGE 2-3 ML 3 ML MISCELLANEOUS DX: R11.0 INTRAMUSCULARLY TID PRN TAKING HOSPITAL BED USE DAILY DIRECTED DX: K91.2, G89.4, G90.522, N81.84 TAKING GLUCOMETER TESTING 4 TIMES A DAY AND NEEDED DX: , NOTES: MEDICAID #: [id number] TAKING TEST STRIPS - - DX: FOUR TIMES DAILY NEEDED, NOTES: MEDICAID #: [id number] TAKING BENTYL 10 MG CAPSULE 1 CAPSULE ORALLY FOUR TIMES A DAY PRN ABDOMINAL CRAMPING TAKING TRIAMCINOLONE ACETONIDE 0.1 % CREAM APPLY A THIN LAYER TO RED AREAS ON FINGERS EXTERNALLY ONCE A DAY TAKING NEBULIZER COMPRESSOR 1 INH DX: J45.909 EVERY 4 HOURS NEEDED TAKING NEBULIZER/TUBING/MOUTHPIECE - KIT DIRECTED DX: J45.909 EVERY 4 HOURS NEEDED TAKING ALCOHOL PREP PAD 70 % PAD DIRECTED E11.9 TEST BLOOD SUGAR QID PRN TAKING ZOFRAN 4 MG/2ML SOLUTION 4 MG INJECTION BID AT LEAST 8H APART TAKING SUCRALFATE 1 GM TABLET 1 TAB ORALLY TWICE A DAY TAKING DICYCLOMINE HCL 10 MG CAPSULE 1 CAPSULE ORALLY FOUR TIMES DAILY, NOTES: SEE BENTYL ABOVE TAKING ALBUTEROL SULFATE HFA 108 (90 BASE) MCG/ACT AEROSOL SOLUTION 2 PUFFS NEEDED INHALATION EVERY 4 HRS PRN, NOTES: NONE RECENTLY TAKING LANCETS MISC. - MISCELLANEOUS ONE TOUCH DELICA 33G LANCETS DX: E11 FOUR TIMES DAILY NEEDED, NOTES: MEDICAID #: [id number] TAKING CICLOPIROX 8 % SOLUTION 1 APPLICATION TO THE L 5TH FINGERNAIL EXTERNALLY ONCE A DAY, CLEAN OFF WITH AN ALCOHOL PREP PAD ONCE A WEEK TAKING SODIUM CHLORIDE 0.9 % GEL ONE APPLICATION INSIDE THE R NOSTRIL EVERY 2 HRS PRN TAKING AMITRIPTYLINE HCL 50 MG TABLET DIRECTED ORALLY 1 TAB IN AM AND 3 TABS AT BEDTIME TAKING SIMETHICONE 80 MG TABLET CHEWABLE 2 TABLETS AFTER MEALS AND AT BEDTIME NEEDED ORALLY THREE TIMES A DAY NEEDED FOR ABDOMINAL PAIN AND DISTENTION TAKING AMMONIUM LACTATE 12 % CREAM 1 APPLICATION EXTERNALLY TWICE A DAY TO FEET TAKING MESALAMINE 1000 MG SUPPOSITORY 1 SUPPOSITORY AT BEDTIME RECTAL ONCE A DAY TAKING MOMETASONE FUROATE 50 MCG/ACT SUSPENSION 2 SPRAYS IN EACH NOSTRIL NASALLY ONCE A DAY TAKING NYSTATIN [id number] UNIT/GM POWDER APPLY TO AFFECTED AREA(S) AROUND STOMA 2 TIMES A DAY DIRECTED UNTIL HEALED TAKING ESTRADIOL 0.1 MG/GM CREAM 1 GRAM VAGINAL DAILY TAKING VICTOZA 18 MG/3ML SOLUTION PEN-INJECTOR 0.6MG DAILY X 1 WEEK, THENI NCREAST TO 1.2MG DAILY SUBCUTANEOUS DAILY, NOTES: 06/05/20 0800 TAKING LEVEMIR FLEX TOUCH 100 UNIT/ML SOLUTION 35 UNITS SUBCUTANEOUS IN THE MORNING, NOTES: 06/05/20 0800 TAKING LACTULOSE 20 GM/30ML SOLUTION 15 ML ORALLY AC AND HS TAKING METOCLOPRAMIDE HCL 10 MG TABLET 1 TABLET BEFORE MEALS AND BEDTIME ORALLY THREE TIMES DAILY BEFORE MEALS TAKING PEN NEEDLES 08/27" 31G X 8 MM MISCELLANEOUS DIRECTED SUBCUTANEOUSLY BID DX: E11.65 TAKING MEDIPORE H SURGICAL 4"X10YD - TAPE DIRECTED NOT-TAKING LEVEMIR FLEXTOUCH 100 UNIT/ML SOLUTION PEN-INJECTOR INJECT 35 UNITS UNDER THE SKIN IN THE MORNING , NOTES: SEE ABOVE MEDICATION LIST REVIEWED AND RECONCILED WITH THE PATIENT PAST MEDICAL HISTORY DM II WITH NEUROPATHY, HBA1C GOAL IS 8.0 FOR NOW B/C OF RISK OF HYPOGLYCEMIA, CONSIDER LOWER IF CONSISTENTLY ACHIEVED ASTHMA HYPERLIPIDEMIA GERD NEPHROLITHIASIS 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 ALLERGIC RHINITIS CHRONIC MAXILLARY SINUSITIS CHRONIC HEADACHES (PAIN MANAGEMENT) CHRONIC PAIN SYNDROME/RSD (PAIN MANAGEMENT) PERSONAL HISTORY OF VENOUS THROMBOSIS AND EMBOLISM (RESOLVED 12/19/2009) ABDOMINAL HERNIA FLEXURAL ECZEMA ALLERGIES IODINE: NERVES, TIGHT MUSCLES - SIDE EFFECTS GABAPENTIN: NERVOUS SYSTEM,SHAKEY - SIDE EFFECTS GABITRIL: NERVOUS - SIDE EFFECTS KETOROLAC TROMETHAMINE: VOMITING - SIDE EFFECTS MEPERIDINE HCL: OUT OF BODY EXPERIENCE - SIDE EFFECTS MORPHINE SULFATE: SEVERE H/A WITH BIG DOSE - SIDE EFFECTS PROMETHAZINE HCL: OUT OF BODY EXPERIENCE - SIDE EFFECTS TRAMADOL: SHAKES - SIDE EFFECTS OXYCODONE: VOMITING,HIVES - ALLERGY PENICILLIN (FOR ALLERGIES USE ONLY): HIVES - ALLERGY FENTANYL: NERVOUS - SIDE EFFECTS DROPERIDOL: OUT OF BODY - SIDE EFFECTS CODEINE SULFATE: OUT OF BODY EXPERIENCE - SIDE EFFECTS PHENOTHIAZINES: NERVOUS SYSTEM - SIDE EFFECTS QUINOLONES- CIPRO,TEQUIN: HIVES - ALLERGY RED FOOD DYE: RASH - ALLERGY LIDODERM (LICOCANINE): HEART RACES - SIDE EFFECTS SULFA: HIVES - ALLERGY ASPIRIN: HIVES - ALLERGY ATIVAN: HALLUCINATIONS - SIDE EFFECTS AZITHROMYCIN: HIVES - ALLERGY BACLOFEN: AFFECTED NERVOUS SYT - SIDE EFFECTS LYRICA: SHAKES, EVERYTHING IS BLACK - SIDE EFFECTS VICODIN: CONFUSION - SIDE EFFECTS MACROBID: HIVES, BLURRED VISION - ALLERGY READI-CAT: HIVES - ALLERGY ALBUTEROL SULFATE: COUGH - ALLERGY GASTROGRAFIN: ONLY 1 BOTTLE PER TEST DAY (CAN NOT TOLERATE ANY MORE THAN 1 BOTTLE) - CONTRAINDICATION LATEX (FOR ALLERGY USE ONLY): DIFFICULTY - ALLERGY TIZANIDINE HCL: HIVES - ALLERGY SURGICAL HISTORY NO PERSONAL HX OF SEVERE REACTION TO ANESTHESIA, HER BROTHER HAS "HAD HIS THROAT CLOSE OFF TWO DIFFERENT TIMES" WITH GENERAL ANESTHESIA SCALP TUMOR 1984 LUMPECTOMIES - REPORTED BENIGN BILATERAL 16 AND 21 YO TOTAL HYSTERECTOMY-DUE TO OVARIAN CYSTS/MASS 21 YO BILAT SYMPATHECTOMY 1987 AV FISTULA REPAIR L LEG 1988 CHOLECYSTECTOMY LATE SBO 2001 ABDOMINAL HERNIA REPAIR 2004 VENTRAL HERNIA REPAIR 2009 DORSAL COLUMN STIMULATOR TAKEN OUT AND NEW ONE IMPLANTED 02/21 SMALL PORTION OF SMALL BOWEL RESECTED AND VENTRAL HERNIA REPAIRS (CINTHIA) 06/2010 ILEOSTOMY-EDUARD 07/28/12 CYST REMOVED RIGHT NOSTRIL- DR RAJPUT. 09/17/12 REPAIR TWO HERNIAS AND REPAIR OF STOMA 03/26 HERNIA REPAIR X2 08/31/13 PARASTOMAL HERNIA REPAIR- EDUARD 06/26 HERNIA AND STOMA REPAIR-EDUARD 06/11 PERASTOMAL HERNIA REPAIR, WITH A SMALL BOWEL OBSTRUCTION 03/2017 INFUSAPORT PLACMENT ([facility]) 08/2017 HERNIA REPAIR X4 STOMA REVERSAL 10/2017 BATTERY REPLACEMENT FOR STIMULATOR 02/2018 FAMILY HISTORY FATHER: ALIVE, CANCER, DIAGNOSED WITH UNSPECIFIED CEREBRAL ARTERY OCCLUSION WITH CEREBRAL INFARCTION, OTHER MALIGNANT NEOPLASM OF UNSPECIFIED SITE MOTHER: , OF MYELODYSPLASTIC SYNDROME; WAS ALSO KNOWN TO HAVE CAD, OTHER MALIGNANT NEOPLASM OF UNSPECIFIED SITE SIBLINGS: ALIVE 1 BROTHER(S) - HEALTHY. 2 BROTHERS DM, KIDNEY FAILURE. SOCIAL HISTORY GENERAL: TOBACCO USE ARE YOU A:NONSMOKER NEVER SMOKER LATEX QUESTIONNAIRE LATEX ALLERGY : HAVE YOU EVER DEVELOPED ANY TYPE OF REACTION AFTER HANDLING LATEX PRODUCTS SUCH RUBBER GLOVES, CONDOMS, DIAPHRAGMS, BALLOONS, SOCKS, OR UNDERWEAR?YES SEE ALLERGY LIST - PLEASE INDICATE :OTHER (DOCUMENT IN NOTES) LATEX ALLERGY : HAVE YOU EVER DEVELOPED ANY TYPE OF REACTION DURING OR AFTER DENTAL APPOINTMENT, VAGINAL/RECTAL EXAMINATION, SURGICAL PROCEDURE, OR ANY OTHER EXPOSURE?YES - PLEASE INDICATE :DENTAL PROCEDURE, VAGINAL EXAM, RECTAL EXAM, SURGICAL PROCEDURE, OTHER (DOCUMENT IN NOTES) LATEX RISK : HAVE YOU EVER HAD ANY DIFFICULTY BREATHING OR HIVES AFTER EATING OR HANDLING ANY FRUITS, OR VEGETABLES; SUCH KIWI, BANANAS, STONE FRUITS, OR CHESTNUTSYES - PLEASE INDICATE : BANANAS, STONE FRUITS LATEX RISK : DO YOU HAVE A PREVIOUS PERSONAL HISTORY OF MORE THAN NINE SURGERIES, SPINA BIFIDA, OR REPEATED CATHERIZATIONS? YES - PLEASE INDICATE : > 9 SURGERIES LATEX RISK : ARE YOU FREQUENTLY EXPOSED TO LATEX PRODUCTS IN YOUR OCCUPATION?NO DATE ASKED : 06/05/2020 ALCOHOL USE: NO. ALCOHOL SCREENING DID YOU HAVE A DRINK CONTAINING ALCOHOL IN THE PAST YEAR?NO POINTS0 INTERPRETATIONNEGATIVE RECREATIONAL DRUG USE DRUG USE?NO CAFFEINE CAFFEINE USE?NO SEXUAL HX HAD SEX IN THE LAST 12 MONTHS (VAGINAL, ORAL, OR ANAL)?NO HAVE YOU EVER HAD AN STD?NO HIV / HEP-C SCREENING HIV TEST OFFERED TO PATIENT:YES DATE OFFERED:07/18/2016 TEST ACCEPTED:NO HEP-C TEST OFFERED TO PATIENT:YES DATE OFFERED:07/18/2016 REASON:PATIENT DECLINED TEST ACCEPTED:NO REASON:PATIENT DECLINED RASTAFARI [id number] [facility] L[facility] LANGUAGES SPOKEN:CROATIAN EDUCATION LEVEL OF EDUCATION:[employer] 8TH GRADE LEARNING BARRIERS / SPECIAL NEEDS CHANGE FROM LAST VISIT?NO BARRIERS TO LEARNING?NO HEARING IMPAIRED?NO VISION IMPAIRED?YES :CORRECTIVE LENSES COGNITIVELY IMPAIRED?NO READINESS TO LEARN?YES LEARNING PREFERENCES?NO LEARNING CAPABILITIES PRESENT?YES EMOTIONAL BARRIERS?NO SPECIAL DEVICES?YES :WHEELCHAIR DR BRAN IN PROCESS PRN PHYSICAL THERAPIST NEEDED?NO DOMESTIC VIOLENCE DO YOU FEEL SAFE IN YOUR ENVIRONMENT?YES OCCUPATION: DISABLED. DIET: NO CONCENTRATED SWEETS., CARBOHYDRATE CONTROLLED. EXERCISE: NO REGULAR EXERCISE. MARITAL STATUS: SINGLE. OTHERS AT HOME: NONE. - PFS REFERRAL NEEDED?NO CLERGY REFERRAL NEEDED?NO PUBLIC HEALTH REFERRAL NEEDED?NO HAS THE PATIENT BEEN EDUCATED REGARDING HIS/HER PLAN OF CARE?YES HAS THE PATIENT BEEN EDUCATED REGARDING PAIN, THE RISK FOR PAIN, THE IMPORTANCE OF EFFECTIVE PAIN MANAGEMENT, AND THE PAIN ASSESSMENT PROCESS?YES ADVANCE DIRECTIVE ADVANCE DIRECTIVE DISCUSSED WITH PATIENT:YES STATES SHE HAS HCP - BROTHER (LUCAS); COPY PLACED IN RECORDS, HE IS ALSO POA. SHE ALSO HAS MOLST FORM THAT IS ON FILE [phone] [facility] PHONE # HOSPITALIZATION/MAJOR DIAGNOSTIC PROCEDURE [facility]- SMALL BOWEL OBSTRUCTION, WAS IN HOSPITAL 11 DAYS 09/2015 [facility]- SMALL BOWEL OBSTRUCTION, WAS IN HOSPITAL IN 5 DAYS 03/2016 [facility]- SMALL BOWEL OBSTRUCTION 04/12/16-04/17/16 [facility]- SMALL BOWEL OBSTRUCTION 06/2016 [facility]- SMALL BOWEL OBSTRUCTION 03/17/17-04/18/17 [facility] - SMALL BOWEL OBSTRUCTION, PNEUMONIA, PSEUDOGOUT 11/2018 [facility] - SMALL BOWEL OBSTRUCTION 02/2019 [facility]-SHORT GUT SYNDROME 06/29/19 VITAL SIGNS WT 184.2 LBS, HT 67 IN, BMI 28.85 INDEX, BP 142/78 MM HG, HR 96 /MIN, RR 18 /MIN, TEMP 97.0 F, OXYGEN SAT % 96%, SAFE IN ENV? (Y/N) YES, NA INITIALS SC 08:42, REVIEWED BY: LSREVIEWED 06/06/20 0848 Ike REYES RN. EXAMINATION GENERAL EXAMINATION: THE PATIENT IS ALERT, ORIENTED TIMES THREE AND COOPERATIVE. LUNGS ARE CLEAR TO AUSCULTATION. HEART SHOWS REGULAR RHYTHM, NO MURMURS AND NO GALLOPS. ASSESSMENTS MYALGIA, OTHER SITE - M79.18 (PRIMARY) TREATMENT MYALGIA, OTHER SITE COMPLETION OF PROCEDURAL VISIT WHEN MEETS CRITERIA OTHERS NOTES: PAT COMPLETED 06/05/20. Sondra WADE RN. PROCEDURES PAIN NURSING RECORD LOC: 0852, 1. ALERT, ORIENTED 1013, LOC REMAINED AT BASELINE THROUGHOUT THE PROCEDURE RESP: 0852, 1. REGULAR, NO DYSPNEA 0945 1. REGULAR, NO DYSPNEA, 1000 1. REGULAR, NO DYSPNEA, 1013, 1. REGULAR, NO DYSPNEA COLOR: 0852, 1. PINK 0945 1. PINK, 1000 1. PINK, 1013, 1. PINK SKIN: 0852 1. WARM, [id number] 1. WARM, DRY, 1000 1. WARM, [id number], 1. WARM, DRY POSITION: 0852, 5. SITTING 0945 5. SITTING, 1000 5. SITTING, 1013, 5. SITTING VITALS: 1005 101-16 143/76 95% NOTES Ike REYES RN COMPLETION OF PROCEDURE APPOINTMENT: POST PAIN 0, DRESSING SITE NO DRESSING, IV N/A, GAIT STEADY USES WALKER, TEACHING COMPLETED, PATIENT ACKNOWLEDGES UNDERSTANDING YES, PROCEDURE APPOINTMENT COMPLETED AT 1013 BY: Ike REYSE RN PN TRIGGER POINT INJECTION WITH STEROIDS PRE PROCEDURE DIAGNOSIS 1. MYALGIA 2. PAIN AT BILATERAL NECK AREA AND BILATERAL OCCIPITAL AREA POST PROCEDURE DIAGNOSIS 1. MYALGIA 2. PAIN AT BILATERAL NECK AREA AND BILATERAL OCCIPITAL AREA PROCEDURE TRIGGER POINT INJECTION AT BILATERAL NECK AREA AND BILATERAL OCCIPITAL AREA SURGEON DR. ELLIS HECTOR PSYCHIATRIC NURSING ASSISTANT NONE ANESTHESIA LOCAL PRE PROCEDURE NOTE THE PATIENT HAS A HISTORY OF CHRONIC PAIN AT THE RIGHT AND LEFT NECK AREA AND RIGHT AND LEFT OCCIPITAL AREA. I EVALUATED THE PATIENT AND REVIEWED THE CHART. THERE IS EVIDENCE OF BANDS OF TISSUE WITH RESTRICTION OF MOVEMENT AND PRESENCE OF TRIGGER POINT AT THE RIGHT AND LEFT NECK AREA AND RIGHT AND LEFT OCCIPITAL AREA. I WENT OVER THE RISKS, ALTERNATIVES, AND BENEFITS ASSOCIATED WITH THIS PROCEDURE. THE PATIENT WOULD LIKE TO PROCEED AND GIVE CONSENT TO PERFORMED THE PROCEDURE. THE PATIENT DENIES UNEXPLAINABLE WEIGHT LOSS, FEVER, CHILLS, OR NEW CHANGES IN URINARY OR BOWEL CONTROL. THE PATIENT IS COVID-19 NEGATIVE DESCRIPTION OF PROCEDURE THE PATIENT WAS BROUGHT TO THE PROCEDURE ROOM AND PLACED IN THE SITTING POSITION. THE AREA WAS CLEANED WITH ALCOHOL. THE PROCEDURE WAS DONE USING ASEPTIC STERILE TECHNIQUE. A TIMEOUT WAS PERFORMED WHERE THE CONSENTED SITE WAS VERIFIED WITH EVERYONE IN THE ROOM. USING A 25-GAUGE NEEDLE, TRIGGER POINTS WERE INJECTED AT THE RIGHT AND LEFT NECK AREA AND RIGHT AND LEFT OCCIPITAL AREA WITH A TOTAL OF 40 ML OF BUPIVACAINE 0.25% AND KENALOG 40 MG. THE MEDICATIONS WERE VERIFIED WITH THE NURSE. THERE WAS NO EVIDENCE OF BLOOD OR PARESTHESIA DURING THE PROCEDURE. THE PATIENT WAS SENT TO THE RECOVERY ROOM. THE PATIENT WAS MOVING THE EXTREMITIES AND DOING WELL. THERE WERE NO COMPLICATIONS DURING THE PROCEDURE. ESTIMATED BLOOD LOSS WAS LESS THAN 5 ML POST PROCEDURE NOTE THE PROCEDURE DONE WAS DISCUSSED WITH THE PATIENT. THE PATIENT WILL BE SEEN IN A FOLLOW UP IN THE NEXT FEW WEEKS. I AM LOOKING FOR LONG LASTING PAIN RELIEF FOR THE PATIENT WITH THIS INTERVENTION. INSTRUCTIONS WERE GIVEN, QUESTIONS WERE ANSWERED, AND THE PATIENT EXPRESSED UNDERSTANDING AND AGREES WITH THE PLAN. IMARIO, DOCUMENTED THE ABOVE INFORMATION ACTING A SCRIBE FOR DR. HECTOR. I HAVE REVIEWED THE ABOVE DOCUMENT, WRITTEN BY MARIO HARRIS, GENERAL ACTIVITIES THERAPIST, AND I VERIFY THAT IT IS ACCURATE PROCEDURE CODES 10196 INJECT TRIGGER POINTS 3/> DISPOSITION & COMMUNICATION FOLLOW UP FOLLOW UP WITH LOW EMISSION AUTOMOBILE DESIGNER (REASON: POST TRIGGER POINT INJECTIONS BILATERAL NECK AND BILATERAL OCCIPITAL) ELECTRONICALLY SIGNED BY ELLIS HECTOR MD, MD ON 06/07/2020 AT 02:43 PM EST DISCLAIMER : THIS IS A VISIT SUMMARY EXTRACTED FROM THE [employer] CHART. IT IS NOT A COPY OF THE [employer] PROGRESS NOTE. BISHNUD
--- NOTE | 2020-06-08 00:40 | ECWPNPC ---
PATIENT NAME: GLENN EFLDER : 1960 GENDER: FEMALE VISIT DATE: 06/06/2020 DISCHARGE DATE: 06/06/20 1014 VISIT LOCKED DATE TIME: PHYSICIAN: ELLIS HECTOR MD RESOURCE: ELLIS HECTOR MD REASON FOR APPOINTMENT 1. TRIGGER POINT INJECTIONS BILATEAL NECK AND BILATERAL OCCIPIAL HISTORY OF PRESENT ILLNESS GENERAL: -. FALL RISK SCREENING: SCREENING :TWO OR MORE FALLS WITH INJURY IN THE PAST YEAR PAIN SCREENING: PATIENT HAS A COMPLAINT OF ACUTE OR CHRONIC PAIN :YES LOCATION OF PAIN:NECK POSTERIOR NECK/HEAD INTENSITY OF PAIN (SCALE OF 1 TO 10):10 WHAT DOES YOUR PAIN FEEL LIKE:ACHING, BURNING, CONTINOUS, SHARP, STABBING, TENDER, THROBBING, SORE DURATION:CONTINOUS, CONSTANT PAIN IS INCREASED BY:ACTIVITIES PAIN IS DECREASED BY: "NOTHING BUT TRIGGER POINTS" PER PATIENT NURSING NOTE: -. PAIN CENTER INTAKE QUESTIONS: DO YOU HAVE A HISTORY OF MRSA? :NO DO YOU TAKE A BLOOD THINNERS? :NO DO YOU HAVE ANY BLEEDING DISORDERS? :NO ANY NEW NUMBNESS OR WEAKNESS IN YOUR LEGS OR ARMS? :NO ANY PACEMAKER,DEFIBRILLATOR, OR DORSAL COLUMN STIMULATOR? :YES DORSAL COLUMN STIMULATOR DO YOU HAVE ANY RASHES OR OPEN SORES? :NO ARE YOU ALLERGIC TO IV DYE? :YES ARE YOU DIABETIC? :YES 0130 97 FSBS ANY NEW PROBLEMS WITH YOUR MEDICATIONS? :NO HAVE YOU RECEIVED A VACCINE IN THE PAST 30 DAYS? :NO DO YOU PLAN TO RECEIVE A VACCINE IN THE NEXT 21 DAYS? :NO DO YOU TAKE ANY IMMUNOSUPPRESSIVE MEDICATIONS? :NO ANY HISTORY OF SEIZURES? :NO ANY HISTORY OF CARDIAC ISSUES OR EVENTS? :NO DO YOU HAVE SLEEP APNEA? :NO ANY RECENT HEAD INJURY? :NO DO YOU HAVE ANY NEW INFECTIONS? :NO IS THERE A CHANCE YOU COULD BE ? :NO ARE YOU BREAST FEEDING? :NO WHEN DID YOU LAST EAT? : -199906/05/20 WHEN DID YOU LAST DRINK? : -199906/05/20 WHAT DID YOU LAST DRINK? : - NAME OF PERSON DRIVING YOU HOME? : -[facility] DO YOU HAVE ANY OTHER QUESTIONS OR CONCERNS? : -NO CURRENT MEDICATIONS TAKING IPRATROPIUM-ALBUTEROL 0.5-2.5 (3) MG/3ML SOLUTION 3 ML INHALATION EVERY 6 HRS PRN TAKING PEDIALYTE BOTTLE SOLUTION 330 ML ORALLY THREE TIMES DAILY TAKING MAY SAVAGE BAGS CLEAR VELCRO CLOSER (06640) ICD:V55.3 CHANGE NEEDED (EDUARD) TAKING MAY HAVE SAVAGE WAFERS NEW IMAGE SKIN BARRIERS FLATING FLANGES ICD: V55.3 ([id number] 2 1/2 CHANGE NEEDED (EDUARD) TAKING BABY WIPES 1 MISCELLANEOUS DIRECTED TOPICALLY PRN DX:569.62 TAKING SYRINGE 2-3 ML 3 ML MISCELLANEOUS DX: R11.0 INTRAMUSCULARLY TID PRN TAKING HOSPITAL BED USE DAILY DIRECTED DX: K91.2, G89.4, G90.522, N81.84 TAKING GLUCOMETER TESTING 4 TIMES A DAY AND NEEDED DX: , NOTES: MEDICAID #: [id number] TAKING TEST STRIPS - - DX: FOUR TIMES DAILY NEEDED, NOTES: MEDICAID #: [id number] TAKING BENTYL 10 MG CAPSULE 1 CAPSULE ORALLY FOUR TIMES A DAY PRN ABDOMINAL CRAMPING TAKING TRIAMCINOLONE ACETONIDE 0.1 % CREAM APPLY A THIN LAYER TO RED AREAS ON FINGERS EXTERNALLY ONCE A DAY TAKING NEBULIZER COMPRESSOR 1 INH DX: J45.909 EVERY 4 HOURS NEEDED TAKING NEBULIZER/TUBING/MOUTHPIECE - KIT DIRECTED DX: J45.909 EVERY 4 HOURS NEEDED TAKING ALCOHOL PREP PAD 70 % PAD DIRECTED E11.9 TEST BLOOD SUGAR QID PRN TAKING ZOFRAN 4 MG/2ML SOLUTION 4 MG INJECTION BID AT LEAST 8H APART TAKING SUCRALFATE 1 GM TABLET 1 TAB ORALLY TWICE A DAY TAKING DICYCLOMINE HCL 10 MG CAPSULE 1 CAPSULE ORALLY FOUR TIMES DAILY, NOTES: SEE BENTYL ABOVE TAKING ALBUTEROL SULFATE HFA 108 (90 BASE) MCG/ACT AEROSOL SOLUTION 2 PUFFS NEEDED INHALATION EVERY 4 HRS PRN, NOTES: NONE RECENTLY TAKING LANCETS MISC. - MISCELLANEOUS ONE TOUCH DELICA 33G LANCETS DX: E11 FOUR TIMES DAILY NEEDED, NOTES: MEDICAID #: [id number] TAKING CICLOPIROX 8 % SOLUTION 1 APPLICATION TO THE L 5TH FINGERNAIL EXTERNALLY ONCE A DAY, CLEAN OFF WITH AN ALCOHOL PREP PAD ONCE A WEEK TAKING SODIUM CHLORIDE 0.9 % GEL ONE APPLICATION INSIDE THE R NOSTRIL EVERY 2 HRS PRN TAKING AMITRIPTYLINE HCL 50 MG TABLET DIRECTED ORALLY 1 TAB IN AM AND 3 TABS AT BEDTIME TAKING SIMETHICONE 80 MG TABLET CHEWABLE 2 TABLETS AFTER MEALS AND AT BEDTIME NEEDED ORALLY THREE TIMES A DAY NEEDED FOR ABDOMINAL PAIN AND DISTENTION TAKING AMMONIUM LACTATE 12 % CREAM 1 APPLICATION EXTERNALLY TWICE A DAY TO FEET TAKING MESALAMINE 1000 MG SUPPOSITORY 1 SUPPOSITORY AT BEDTIME RECTAL ONCE A DAY TAKING MOMETASONE FUROATE 50 MCG/ACT SUSPENSION 2 SPRAYS IN EACH NOSTRIL NASALLY ONCE A DAY TAKING NYSTATIN [id number] UNIT/GM POWDER APPLY TO AFFECTED AREA(S) AROUND STOMA 2 TIMES A DAY DIRECTED UNTIL HEALED TAKING ESTRADIOL 0.1 MG/GM CREAM 1 GRAM VAGINAL DAILY TAKING VICTOZA 18 MG/3ML SOLUTION PEN-INJECTOR 0.6MG DAILY X 1 WEEK, THENI NCREAST TO 1.2MG DAILY SUBCUTANEOUS DAILY, NOTES: 06/05/20 0800 TAKING LEVEMIR FLEX TOUCH 100 UNIT/ML SOLUTION 35 UNITS SUBCUTANEOUS IN THE MORNING, NOTES: 06/05/20 0800 TAKING LACTULOSE 20 GM/30ML SOLUTION 15 ML ORALLY AC AND HS TAKING METOCLOPRAMIDE HCL 10 MG TABLET 1 TABLET BEFORE MEALS AND BEDTIME ORALLY THREE TIMES DAILY BEFORE MEALS TAKING PEN NEEDLES 08/27" 31G X 8 MM MISCELLANEOUS DIRECTED SUBCUTANEOUSLY BID DX: E11.65 TAKING MEDIPORE H SURGICAL 4"X10YD - TAPE DIRECTED NOT-TAKING LEVEMIR FLEXTOUCH 100 UNIT/ML SOLUTION PEN-INJECTOR INJECT 35 UNITS UNDER THE SKIN IN THE MORNING , NOTES: SEE ABOVE MEDICATION LIST REVIEWED AND RECONCILED WITH THE PATIENT PAST MEDICAL HISTORY DM II WITH NEUROPATHY, HBA1C GOAL IS 8.0 FOR NOW B/C OF RISK OF HYPOGLYCEMIA, CONSIDER LOWER IF CONSISTENTLY ACHIEVED ASTHMA HYPERLIPIDEMIA GERD NEPHROLITHIASIS 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 ALLERGIC RHINITIS CHRONIC MAXILLARY SINUSITIS CHRONIC HEADACHES (PAIN MANAGEMENT) CHRONIC PAIN SYNDROME/RSD (PAIN MANAGEMENT) PERSONAL HISTORY OF VENOUS THROMBOSIS AND EMBOLISM (RESOLVED 12/19/2009) ABDOMINAL HERNIA FLEXURAL ECZEMA ALLERGIES IODINE: NERVES, TIGHT MUSCLES - SIDE EFFECTS GABAPENTIN: NERVOUS SYSTEM,SHAKEY - SIDE EFFECTS GABITRIL: NERVOUS - SIDE EFFECTS KETOROLAC TROMETHAMINE: VOMITING - SIDE EFFECTS MEPERIDINE HCL: OUT OF BODY EXPERIENCE - SIDE EFFECTS MORPHINE SULFATE: SEVERE H/A WITH BIG DOSE - SIDE EFFECTS PROMETHAZINE HCL: OUT OF BODY EXPERIENCE - SIDE EFFECTS TRAMADOL: SHAKES - SIDE EFFECTS OXYCODONE: VOMITING,HIVES - ALLERGY PENICILLIN (FOR ALLERGIES USE ONLY): HIVES - ALLERGY FENTANYL: NERVOUS - SIDE EFFECTS DROPERIDOL: OUT OF BODY - SIDE EFFECTS CODEINE SULFATE: OUT OF BODY EXPERIENCE - SIDE EFFECTS PHENOTHIAZINES: NERVOUS SYSTEM - SIDE EFFECTS QUINOLONES- CIPRO,TEQUIN: HIVES - ALLERGY RED FOOD DYE: RASH - ALLERGY LIDODERM (LICOCANINE): HEART RACES - SIDE EFFECTS SULFA: HIVES - ALLERGY ASPIRIN: HIVES - ALLERGY ATIVAN: HALLUCINATIONS - SIDE EFFECTS AZITHROMYCIN: HIVES - ALLERGY BACLOFEN: AFFECTED NERVOUS SYT - SIDE EFFECTS LYRICA: SHAKES, EVERYTHING IS BLACK - SIDE EFFECTS VICODIN: CONFUSION - SIDE EFFECTS MACROBID: HIVES, BLURRED VISION - ALLERGY READI-CAT: HIVES - ALLERGY ALBUTEROL SULFATE: COUGH - ALLERGY GASTROGRAFIN: ONLY 1 BOTTLE PER TEST DAY (CAN NOT TOLERATE ANY MORE THAN 1 BOTTLE) - CONTRAINDICATION LATEX (FOR ALLERGY USE ONLY): DIFFICULTY - ALLERGY TIZANIDINE HCL: HIVES - ALLERGY SURGICAL HISTORY NO PERSONAL HX OF SEVERE REACTION TO ANESTHESIA, HER BROTHER HAS "HAD HIS THROAT CLOSE OFF TWO DIFFERENT TIMES" WITH GENERAL ANESTHESIA SCALP TUMOR 1984 LUMPECTOMIES - REPORTED BENIGN BILATERAL 16 AND 21 YO TOTAL HYSTERECTOMY-DUE TO OVARIAN CYSTS/MASS 21 YO BILAT SYMPATHECTOMY 1987 AV FISTULA REPAIR L LEG 1988 CHOLECYSTECTOMY LATE SBO 2001 ABDOMINAL HERNIA REPAIR 2004 VENTRAL HERNIA REPAIR 2009 DORSAL COLUMN STIMULATOR TAKEN OUT AND NEW ONE IMPLANTED 02/21 SMALL PORTION OF SMALL BOWEL RESECTED AND VENTRAL HERNIA REPAIRS (CINTHIA) 06/2010 ILEOSTOMY-EDUARD 07/28/12 CYST REMOVED RIGHT NOSTRIL- DR RAJPUT. 09/17/12 REPAIR TWO HERNIAS AND REPAIR OF STOMA 03/26 HERNIA REPAIR X2 08/31/13 PARASTOMAL HERNIA REPAIR- EDUARD 06/26 HERNIA AND STOMA REPAIR-EDUARD 06/11 PERASTOMAL HERNIA REPAIR, WITH A SMALL BOWEL OBSTRUCTION 03/2017 INFUSAPORT PLACMENT ([facility]) 08/2017 HERNIA REPAIR X4 STOMA REVERSAL 10/2017 BATTERY REPLACEMENT FOR STIMULATOR 02/2018 FAMILY HISTORY FATHER: ALIVE, CANCER, DIAGNOSED WITH UNSPECIFIED CEREBRAL ARTERY OCCLUSION WITH CEREBRAL INFARCTION, OTHER MALIGNANT NEOPLASM OF UNSPECIFIED SITE MOTHER: , OF MYELODYSPLASTIC SYNDROME; WAS ALSO KNOWN TO HAVE CAD, OTHER MALIGNANT NEOPLASM OF UNSPECIFIED SITE SIBLINGS: ALIVE 1 BROTHER(S) - HEALTHY. 2 BROTHERS DM, KIDNEY FAILURE. SOCIAL HISTORY GENERAL: TOBACCO USE ARE YOU A:NONSMOKER NEVER SMOKER LATEX QUESTIONNAIRE LATEX ALLERGY : HAVE YOU EVER DEVELOPED ANY TYPE OF REACTION AFTER HANDLING LATEX PRODUCTS SUCH RUBBER GLOVES, CONDOMS, DIAPHRAGMS, BALLOONS, SOCKS, OR UNDERWEAR?YES SEE ALLERGY LIST - PLEASE INDICATE :OTHER (DOCUMENT IN NOTES) LATEX ALLERGY : HAVE YOU EVER DEVELOPED ANY TYPE OF REACTION DURING OR AFTER DENTAL APPOINTMENT, VAGINAL/RECTAL EXAMINATION, SURGICAL PROCEDURE, OR ANY OTHER EXPOSURE?YES - PLEASE INDICATE :DENTAL PROCEDURE, VAGINAL EXAM, RECTAL EXAM, SURGICAL PROCEDURE, OTHER (DOCUMENT IN NOTES) LATEX RISK : HAVE YOU EVER HAD ANY DIFFICULTY BREATHING OR HIVES AFTER EATING OR HANDLING ANY FRUITS, OR VEGETABLES; SUCH KIWI, BANANAS, STONE FRUITS, OR CHESTNUTSYES - PLEASE INDICATE : BANANAS, STONE FRUITS LATEX RISK : DO YOU HAVE A PREVIOUS PERSONAL HISTORY OF MORE THAN NINE SURGERIES, SPINA BIFIDA, OR REPEATED CATHERIZATIONS? YES - PLEASE INDICATE : > 9 SURGERIES LATEX RISK : ARE YOU FREQUENTLY EXPOSED TO LATEX PRODUCTS IN YOUR OCCUPATION?NO DATE ASKED : 06/05/2020 ALCOHOL USE: NO. ALCOHOL SCREENING DID YOU HAVE A DRINK CONTAINING ALCOHOL IN THE PAST YEAR?NO POINTS0 INTERPRETATIONNEGATIVE RECREATIONAL DRUG USE DRUG USE?NO CAFFEINE CAFFEINE USE?NO SEXUAL HX HAD SEX IN THE LAST 12 MONTHS (VAGINAL, ORAL, OR ANAL)?NO HAVE YOU EVER HAD AN STD?NO HIV / HEP-C SCREENING HIV TEST OFFERED TO PATIENT:YES DATE OFFERED:07/18/2016 TEST ACCEPTED:NO HEP-C TEST OFFERED TO PATIENT:YES DATE OFFERED:07/18/2016 REASON:PATIENT DECLINED TEST ACCEPTED:NO REASON:PATIENT DECLINED [facility] [id number] [facility] L[facility]AGE LANGUAGES SPOKEN:TRINIDADIAN EDUCATION LEVEL OF EDUCATION:[employer] 8TH GRADE LEARNING BARRIERS / SPECIAL NEEDS CHANGE FROM LAST VISIT?NO BARRIERS TO LEARNING?NO HEARING IMPAIRED?NO VISION IMPAIRED?YES :CORRECTIVE LENSES COGNITIVELY IMPAIRED?NO READINESS TO LEARN?YES LEARNING PREFERENCES?NO LEARNING CAPABILITIES PRESENT?YES EMOTIONAL BARRIERS?NO SPECIAL DEVICES?YES :WHEELCHAIR DR BRAN IN PROCESS BASE FILLER OPERATOR NEEDED?NO DOMESTIC VIOLENCE DO YOU FEEL SAFE IN YOUR ENVIRONMENT?YES OCCUPATION: DISABLED. DIET: NO CONCENTRATED SWEETS., CARBOHYDRATE CONTROLLED. EXERCISE: NO REGULAR EXERCISE. MARITAL STATUS: SINGLE. OTHERS AT HOME: NONE. - PFS REFERRAL NEEDED?NO CLERGY REFERRAL NEEDED?NO PUBLIC HEALTH REFERRAL NEEDED?NO HAS THE PATIENT BEEN EDUCATED REGARDING HIS/HER PLAN OF CARE?YES HAS THE PATIENT BEEN EDUCATED REGARDING PAIN, THE RISK FOR PAIN, THE IMPORTANCE OF EFFECTIVE PAIN MANAGEMENT, AND THE PAIN ASSESSMENT PROCESS?YES ADVANCE DIRECTIVE ADVANCE DIRECTIVE DISCUSSED WITH PATIENT:YES STATES SHE HAS HCP - BROTHER (LCUAS); COPY PLACED IN RECORDS, HE IS ALSO POA. SHE ALSO HAS MOLST FORM THAT IS ON FILE [phone] [facility] PHONE # HOSPITALIZATION/MAJOR DIAGNOSTIC PROCEDURE [facility]- SMALL BOWEL OBSTRUCTION, WAS IN HOSPITAL 11 DAYS 09/2015 [facility]- SMALL BOWEL OBSTRUCTION, WAS IN HOSPITAL IN 5 DAYS 03/2016 [facility]- SMALL BOWEL OBSTRUCTION 04/12/16-04/17/16 [facility]- SMALL BOWEL OBSTRUCTION 06/2016 [facility]- SMALL BOWEL OBSTRUCTION 03/17/17-04/18/17 [facility] - SMALL BOWEL OBSTRUCTION, PNEUMONIA, PSEUDOGOUT 11/2018 [facility] - SMALL BOWEL OBSTRUCTION 02/2019 [facility]-SHORT GUT SYNDROME 06/29/19 VITAL SIGNS WT 184.2 LBS, HT 67 IN, BMI 28.85 INDEX, BP 142/78 MM HG, HR 96 /MIN, RR 18 /MIN, TEMP 97.0 F, OXYGEN SAT % 96%, SAFE IN ENV? (Y/N) YES, NA INITIALS SC 08:42, REVIEWED BY: LSREVIEWED 06/06/20 0848 Ike REYES RN. EXAMINATION GENERAL EXAMINATION: THE PATIENT IS ALERT, ORIENTED TIMES THREE AND COOPERATIVE. LUNGS ARE CLEAR TO AUSCULTATION. HEART SHOWS REGULAR RHYTHM, NO MURMURS AND NO GALLOPS. ASSESSMENTS MYALGIA, OTHER SITE - M79.18 (PRIMARY) TREATMENT MYALGIA, OTHER SITE COMPLETION OF PROCEDURAL VISIT WHEN MEETS CRITERIA OTHERS NOTES: PAT COMPLETED 06/05/20. Sondra WADE RN. PROCEDURES PAIN NURSING RECORD LOC: 0852, 1. ALERT, ORIENTED 1013, LOC REMAINED AT BASELINE THROUGHOUT THE PROCEDURE RESP: 0852, 1. REGULAR, NO DYSPNEA 0945 1. REGULAR, NO DYSPNEA, 1000 1. REGULAR, NO DYSPNEA, 1013, 1. REGULAR, NO DYSPNEA COLOR: 0852, 1. PINK 0945 1. PINK, 1000 1. PINK, 1013, 1. PINK SKIN: 0852 1. WARM, [id number] 1. WARM, DRY, 1000 1. WARM, [id number], 1. WARM, DRY POSITION: 0852, 5. SITTING 0945 5. SITTING, 1000 5. SITTING, 1013, 5. SITTING VITALS: 1005 101-16 143/76 95% NOTES Ike REYES RN COMPLETION OF PROCEDURE APPOINTMENT: POST PAIN 0, DRESSING SITE NO DRESSING, IV N/A, GAIT STEADY USES WALKER, TEACHING COMPLETED, PATIENT ACKNOWLEDGES UNDERSTANDING YES, PROCEDURE APPOINTMENT COMPLETED AT 1013 BY: Ike REYES RN PN TRIGGER POINT INJECTION WITH STEROIDS PRE PROCEDURE DIAGNOSIS 1. MYALGIA 2. PAIN AT BILATERAL NECK AREA AND BILATERAL OCCIPITAL AREA POST PROCEDURE DIAGNOSIS 1. MYALGIA 2. PAIN AT BILATERAL NECK AREA AND BILATERAL OCCIPITAL AREA PROCEDURE TRIGGER POINT INJECTION AT BILATERAL NECK AREA AND BILATERAL OCCIPITAL AREA SURGEON DR. ELLIS HECTOR JUNIOR ORACLE DBA NONE ANESTHESIA LOCAL PRE PROCEDURE NOTE THE PATIENT HAS A HISTORY OF CHRONIC PAIN AT THE RIGHT AND LEFT NECK AREA AND RIGHT AND LEFT OCCIPITAL AREA. I EVALUATED THE PATIENT AND REVIEWED THE CHART. THERE IS EVIDENCE OF BANDS OF TISSUE WITH RESTRICTION OF MOVEMENT AND PRESENCE OF TRIGGER POINT AT THE RIGHT AND LEFT NECK AREA AND RIGHT AND LEFT OCCIPITAL AREA. I WENT OVER THE RISKS, ALTERNATIVES, AND BENEFITS ASSOCIATED WITH THIS PROCEDURE. THE PATIENT WOULD LIKE TO PROCEED AND GIVE CONSENT TO PERFORMED THE PROCEDURE. THE PATIENT DENIES UNEXPLAINABLE WEIGHT LOSS, FEVER, CHILLS, OR NEW CHANGES IN URINARY OR BOWEL CONTROL. THE PATIENT IS COVID-19 NEGATIVE DESCRIPTION OF PROCEDURE THE PATIENT WAS BROUGHT TO THE PROCEDURE ROOM AND PLACED IN THE SITTING POSITION. THE AREA WAS CLEANED WITH ALCOHOL. THE PROCEDURE WAS DONE USING ASEPTIC STERILE TECHNIQUE. A TIMEOUT WAS PERFORMED WHERE THE CONSENTED SITE WAS VERIFIED WITH EVERYONE IN THE ROOM. USING A 25-GAUGE NEEDLE, TRIGGER POINTS WERE INJECTED AT THE RIGHT AND LEFT NECK AREA AND RIGHT AND LEFT OCCIPITAL AREA WITH A TOTAL OF 40 ML OF BUPIVACAINE 0.25% AND KENALOG 40 MG. THE MEDICATIONS WERE VERIFIED WITH THE NURSE. THERE WAS NO EVIDENCE OF BLOOD OR PARESTHESIA DURING THE PROCEDURE. THE PATIENT WAS SENT TO THE RECOVERY ROOM. THE PATIENT WAS MOVING THE EXTREMITIES AND DOING WELL. THERE WERE NO COMPLICATIONS DURING THE PROCEDURE. ESTIMATED BLOOD LOSS WAS LESS THAN 5 ML POST PROCEDURE NOTE THE PROCEDURE DONE WAS DISCUSSED WITH THE PATIENT. THE PATIENT WILL BE SEEN IN A FOLLOW UP IN THE NEXT FEW WEEKS. I AM LOOKING FOR LONG LASTING PAIN RELIEF FOR THE PATIENT WITH THIS INTERVENTION. INSTRUCTIONS WERE GIVEN, QUESTIONS WERE ANSWERED, AND THE PATIENT EXPRESSED UNDERSTANDING AND AGREES WITH THE PLAN. IMARIO, DOCUMENTED THE ABOVE INFORMATION ACTING A SCRIBE FOR DR. HECTOR. I HAVE REVIEWED THE ABOVE DOCUMENT, WRITTEN BY MARIO HARRIS, SOFTWARE PRODUCT SPECIALIST, AND I VERIFY THAT IT IS ACCURATE PROCEDURE CODES 53361 INJECT TRIGGER POINTS 3/> DISPOSITION & COMMUNICATION FOLLOW UP FOLLOW UP WITH VOCATIONAL TRAINING TEACHER (REASON: POST TRIGGER POINT INJECTIONS BILATERAL NECK AND BILATERAL OCCIPITAL) ELECTRONICALLY SIGNED BY ELLIS HECTOR MD, MD ON 06/07/2020 AT 02:43 PM EST DISCLAIMER : THIS IS A VISIT SUMMARY EXTRACTED FROM THE [employer] CHART. IT IS NOT A COPY OF THE [employer] PROGRESS NOTE. BISHNUD
== END ==
LOC: M PAIN 08:30
PROVIDERS: ATTEND Anesthesiology
DX: M79.18 Myalgia, other site (principal); E11.40 Type 2 diabetes mellitus with diabetic neuropathy, unspecified; J45.909 Unspecified asthma, uncomplicated; Z96.89 Presence of other specified functional implants; Z88.0 Allergy status to penicillin; Z88.1 Allergy status to other antibiotic agents; Z88.2 Allergy status to sulfonamides; Z88.3 Allergy status to other anti-infective agents; Z88.4 Allergy status to anesthetic agent; Z88.5 Allergy status to narcotic agent; Z88.6 Allergy status to analgesic agent; Z88.8 Allergy status to other drugs, medicaments and biological substances; Z91.02 Food additives allergy status; Z91.040 Latex allergy status; Z91.041 Radiographic dye allergy status; Z79.4 Long term (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; Z79.899 Other long term (current) drug therapy
CPT/HCPCS: 20553; J3301

== ENCOUNTER 2020-06-13 08:12 | Outpatient (CLI) | payer OTHER ==
[~2020-06-13] VITALS: Ht 167.6 cm; Wt 73.0 kg
[~2020-06-13 08:12] MED LIST changes: -BUPIVACAINE HCL 0.25% 10ML VIAL As Ordered ONE; -BUPIVACAINE HCL 0.25% 30ML VIAL As Ordered ONE; -PEG1POW PO; +POLY17PO18 PO; -TRIAMCINOLONE ACETONIDE SUSP 40 MG/ML VIAL (J3301) As Ordered ONE
[2020-06-13 08:19] VITALS: BP 145/71
[2020-06-13] MEDS ORDERED: SODIUM CHLORIDE 0.9% INJ 10 ML SYR IV SCH (09:00)
[2020-06-13 09:29] LABS: HEMOGLOBIN A1c 9.6 %
[2020-06-13 09:35] LABS: MAU/CREAT RATIO 63.2 MCG/MG (0.0-30.0)
[2020-06-13 10:11] LABS: ALBUMIN 3.7 GM/DL (3.2-5.2); ALT/SGPT 26 U/L (12-78); BILIRUBIN,TOTAL 0.2 MG/DL (0.2-1.0); BLOOD UREA NITROGEN 18 MG/DL (7-18); CALCIUM LEVEL 10.2 MG/DL (8.5-10.1); CARBON DIOXIDE LEVEL 25 MEQ/L (21-32); CHLORIDE LEVEL 103 MEQ/L (98-107); CHOLESTEROL LEVEL 266 MG/DL (<200); CHOLESTEROL RISK RATIO 3.643 (<5); CREATININE FOR GFR 0.52 MG/DL (0.55-1.30); GLOMERULAR FILTRATION RATE > 60.0 (>51); GLUCOSE, FASTING 277 MG/DL (70-100); HDL CHOLESTEROL 73 MG/DL (>40); NON-HDL-C 193 MG/DL; POTASSIUM SERUM 4.3 MEQ/L (3.5-5.1); SODIUM LEVEL 137 MEQ/L (136-145); TOTAL PROTEIN 8.3 GM/DL (6.4-8.2); TRIGLYCERIDES LEVEL 475 MG/DL (<150)
== END 2020-06-13 09:00 | disposition home or self-care (01) ==
LOC: M INFU 08:12
PROVIDERS: ATTEND Family Medicine
DX: E11.9 Type 2 diabetes mellitus without complications (principal); E78.2 Mixed hyperlipidemia; R11.0 Nausea; E83.42 Hypomagnesemia
CPT/HCPCS: 36591; 80053; 80061; 82043; 83036; J1642

== ENCOUNTER → 2020-06-20 | Outpatient (CLI) | payer OTHER ==
--- NOTE | 2020-06-24 02:25 | ECWPNPC ---
PATIENT NAME: GLENN FELDER : 1960 GENDER: FEMALE VISIT DATE: 06/20/2020 DISCHARGE DATE: 06/20/20 1137 VISIT LOCKED DATE TIME: PHYSICIAN: NAVNEET BRAY RESOURCE: NAVNEET BRAY REASON FOR APPOINTMENT 1. POST TRIGGER POINT INJECTION TO HEAD AND NECK HISTORY OF PRESENT ILLNESS GENERAL: HERE FOR POST PROCEDURE FOLLOW-UP. HAD TRIGGER POINT INJECTIONS BILATERAL NECK AND BILATERAL OCCIPITAL REGION ON 06/06/2020. REPORTING MARKED REDUCTION IN NECK AND HEAD PAIN POST PROCEDURE. IS SCHEDULED FOR ABDOMINAL SURGERY IN THE NEAR FUTURE.-. FALL RISK SCREENING: SCREENING : NO FALLS REPORTED IN THE LAST YEAR. PAIN SCREENING: PATIENT HAS A COMPLAINT OF ACUTE OR CHRONIC PAIN :YES LOCATION OF PAIN:HEAD, NECK INTENSITY OF PAIN (SCALE OF 1 TO 10):0 WHAT DOES YOUR PAIN FEEL LIKE:ACHING, BURNING, STABBING, THROBBING, SHOOTING DURATION:CONTINOUS, CONSTANT, ALL DAY PAIN IS INCREASED BY:OTHERS ONLY THE TPI NURSING NOTE: -. PAIN CENTER INTAKE QUESTIONS: DO YOU HAVE A HISTORY OF MRSA? :NO DO YOU TAKE A BLOOD THINNERS? :NO DO YOU HAVE ANY BLEEDING DISORDERS? :NO ANY NEW NUMBNESS OR WEAKNESS IN YOUR LEGS OR ARMS? :NO ANY PACEMAKER,DEFIBRILLATOR, OR DORSAL COLUMN STIMULATOR? :YES DORSAL COLUMIN STIMULATER DO YOU HAVE ANY RASHES OR OPEN SORES? :NO ARE YOU ALLERGIC TO IV DYE? :YES ARE YOU DIABETIC? :YES ANY NEW PROBLEMS WITH YOUR MEDICATIONS? :NO HAVE YOU RECEIVED A VACCINE IN THE PAST 30 DAYS? :NO DO YOU PLAN TO RECEIVE A VACCINE IN THE NEXT 21 DAYS? :NO DO YOU NEED ANY PRESCRIPTION? :NO DO YOU TAKE ANY IMMUNOSUPPRESSIVE MEDICATIONS? :NO IS THERE A CHANCE YOU COULD BE ? :NO ARE YOU BREAST FEEDING? :NO CURRENT MEDICATIONS TAKING IPRATROPIUM-ALBUTEROL 0.5-2.5 (3) MG/3ML SOLUTION 3 ML INHALATION EVERY 6 HRS PRN TAKING PEDIALYTE BOTTLE SOLUTION 330 ML ORALLY THREE TIMES DAILY TAKING MAY SAVAGE BAGS CLEAR VELCRO CLOSER ([id number]) ICD:V55.3 CHANGE NEEDED (EDUARD) TAKING MAY HAVE SAVAGE WAFERS NEW IMAGE SKIN BARRIERS FLATING FLANGES ICD: V55.3 (71816 2 1/2 CHANGE NEEDED (EDUARD) TAKING BABY WIPES 1 MISCELLANEOUS DIRECTED TOPICALLY PRN DX:569.62 TAKING SYRINGE 2-3 ML 3 ML MISCELLANEOUS DX: R11.0 INTRAMUSCULARLY TID PRN TAKING HOSPITAL BED USE DAILY DIRECTED DX: K91.2, G89.4, G90.522, N81.84 TAKING GLUCOMETER TESTING 4 TIMES A DAY AND NEEDED DX: , NOTES: MEDICAID #: [id number] TAKING TEST STRIPS - - DX: FOUR TIMES DAILY NEEDED, NOTES: MEDICAID #: [id number] TAKING BENTYL 10 MG CAPSULE 1 CAPSULE ORALLY FOUR TIMES A DAY PRN ABDOMINAL CRAMPING TAKING TRIAMCINOLONE ACETONIDE 0.1 % CREAM APPLY A THIN LAYER TO RED AREAS ON FINGERS EXTERNALLY ONCE A DAY TAKING NEBULIZER COMPRESSOR 1 INH DX: J45.909 EVERY 4 HOURS NEEDED TAKING NEBULIZER/TUBING/MOUTHPIECE - KIT DIRECTED DX: J45.909 EVERY 4 HOURS NEEDED TAKING ALCOHOL PREP PAD 70 % PAD DIRECTED E11.9 TEST BLOOD SUGAR QID PRN TAKING ZOFRAN 4 MG/2ML SOLUTION 4 MG INJECTION BID AT LEAST 8H APART TAKING SUCRALFATE 1 GM TABLET 1 TAB ORALLY TWICE A DAY TAKING DICYCLOMINE HCL 10 MG CAPSULE 1 CAPSULE ORALLY FOUR TIMES DAILY, NOTES: SEE BENTYL ABOVE TAKING ALBUTEROL SULFATE HFA 108 (90 BASE) MCG/ACT AEROSOL SOLUTION 2 PUFFS NEEDED INHALATION EVERY 4 HRS PRN, NOTES: NONE RECENTLY TAKING LANCETS MISC. - MISCELLANEOUS ONE TOUCH DELICA 33G LANCETS DX: FOUR TIMES DAILY NEEDED, NOTES: MEDICAID #: [id number] TAKING CICLOPIROX 8 % SOLUTION 1 APPLICATION TO THE L 5TH FINGERNAIL EXTERNALLY ONCE A DAY, CLEAN OFF WITH AN ALCOHOL PREP PAD ONCE A WEEK TAKING SODIUM CHLORIDE 0.9 % GEL ONE APPLICATION INSIDE THE R NOSTRIL EVERY 2 HRS PRN TAKING AMITRIPTYLINE HCL 50 MG TABLET DIRECTED ORALLY 1 TAB IN AM AND 3 TABS AT BEDTIME TAKING SIMETHICONE 80 MG TABLET CHEWABLE 2 TABLETS AFTER MEALS AND AT BEDTIME NEEDED ORALLY THREE TIMES A DAY NEEDED FOR ABDOMINAL PAIN AND DISTENTION TAKING AMMONIUM LACTATE 12 % CREAM 1 APPLICATION EXTERNALLY TWICE A DAY TO FEET TAKING MESALAMINE 1000 MG SUPPOSITORY 1 SUPPOSITORY AT BEDTIME RECTAL ONCE A DAY TAKING MOMETASONE FUROATE 50 MCG/ACT SUSPENSION 2 SPRAYS IN EACH NOSTRIL NASALLY ONCE A DAY TAKING ESTRADIOL 0.1 MG/GM CREAM 1 GRAM VAGINAL DAILY TAKING VICTOZA 18 MG/3ML SOLUTION PEN-INJECTOR 0.6MG DAILY X 1 WEEK, THENI NCREAST TO 1.2MG DAILY SUBCUTANEOUS DAILY, NOTES: 06/05/20 0800 TAKING LEVEMIR FLEX TOUCH 100 UNIT/ML SOLUTION 35 UNITS SUBCUTANEOUS IN THE MORNING, NOTES: 06/05/20 0800 TAKING LACTULOSE 20 GM/30ML SOLUTION 15 ML ORALLY AC AND HS TAKING METOCLOPRAMIDE HCL 10 MG TABLET 1 TABLET BEFORE MEALS AND BEDTIME ORALLY THREE TIMES DAILY BEFORE MEALS TAKING PEN NEEDLES 5/16" 31G X 8 MM MISCELLANEOUS DIRECTED SUBCUTANEOUSLY BID DX: E11.65 TAKING MEDIPORE H SURGICAL 4"X10YD - TAPE DIRECTED TAKING NYSTATIN 208231 UNIT/GM POWDER APPLY TO AFFECTED AREA(S) AROUND STOMA 2 TIMES A DAY DIRECTED UNTIL HEALED NOT-TAKING LEVEMIR FLEXTOUCH 100 UNIT/ML SOLUTION PEN-INJECTOR INJECT 35 UNITS UNDER THE SKIN IN THE MORNING , NOTES: SEE ABOVE MEDICATION LIST REVIEWED AND RECONCILED WITH THE PATIENT PAST MEDICAL HISTORY DM II WITH NEUROPATHY, HBA1C GOAL IS 8.0 FOR NOW B/C OF RISK OF HYPOGLYCEMIA, CONSIDER LOWER IF CONSISTENTLY ACHIEVED ASTHMA HYPERLIPIDEMIA GERD NEPHROLITHIASIS 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 ALLERGIC RHINITIS CHRONIC MAXILLARY SINUSITIS CHRONIC HEADACHES (PAIN MANAGEMENT) CHRONIC PAIN SYNDROME/RSD (PAIN MANAGEMENT) PERSONAL HISTORY OF VENOUS THROMBOSIS AND EMBOLISM (RESOLVED 12/19/2009) ABDOMINAL HERNIA FLEXURAL ECZEMA MUSCLE TRANSPLANT IN JULY ALLERGIES IODINE: NERVES, TIGHT MUSCLES - SIDE EFFECTS GABAPENTIN: NERVOUS SYSTEM,SHAKEY - SIDE EFFECTS GABITRIL: NERVOUS - SIDE EFFECTS KETOROLAC TROMETHAMINE: VOMITING - SIDE EFFECTS MEPERIDINE HCL: OUT OF BODY EXPERIENCE - SIDE EFFECTS MORPHINE SULFATE: SEVERE H/A WITH BIG DOSE - SIDE EFFECTS PROMETHAZINE HCL: OUT OF BODY EXPERIENCE - SIDE EFFECTS TRAMADOL: SHAKES - SIDE EFFECTS OXYCODONE: VOMITING,HIVES - ALLERGY PENICILLIN (FOR ALLERGIES USE ONLY): HIVES - ALLERGY FENTANYL: NERVOUS - SIDE EFFECTS DROPERIDOL: OUT OF BODY - SIDE EFFECTS CODEINE SULFATE: OUT OF BODY EXPERIENCE - SIDE EFFECTS PHENOTHIAZINES: NERVOUS SYSTEM - SIDE EFFECTS QUINOLONES- CIPRO,TEQUIN: HIVES - ALLERGY RED FOOD DYE: RASH - ALLERGY LIDODERM (LICOCANINE): HEART RACES - SIDE EFFECTS SULFA: HIVES - ALLERGY ASPIRIN: HIVES - ALLERGY ATIVAN: HALLUCINATIONS - SIDE EFFECTS AZITHROMYCIN: HIVES - ALLERGY BACLOFEN: AFFECTED NERVOUS SYT - SIDE EFFECTS LYRICA: SHAKES, EVERYTHING IS BLACK - SIDE EFFECTS VICODIN: CONFUSION - SIDE EFFECTS MACROBID: HIVES, BLURRED VISION - ALLERGY READI-CAT: HIVES - ALLERGY ALBUTEROL SULFATE: COUGH - ALLERGY GASTROGRAFIN: ONLY 1 BOTTLE PER TEST DAY (CAN NOT TOLERATE ANY MORE THAN 1 BOTTLE) - CONTRAINDICATION LATEX (FOR ALLERGY USE ONLY): DIFFICULTY - ALLERGY TIZANIDINE HCL: HIVES - ALLERGY SOCIAL HISTORY GENERAL: TOBACCO USE ARE YOU A:NONSMOKER NEVER SMOKER LATEX QUESTIONNAIRE LATEX ALLERGY : HAVE YOU EVER DEVELOPED ANY TYPE OF REACTION AFTER HANDLING LATEX PRODUCTS SUCH RUBBER GLOVES, CONDOMS, DIAPHRAGMS, BALLOONS, SOCKS, OR UNDERWEAR?YES SEE ALLERGY LIST - PLEASE INDICATE :OTHER (DOCUMENT IN NOTES) LATEX ALLERGY : HAVE YOU EVER DEVELOPED ANY TYPE OF REACTION DURING OR AFTER DENTAL APPOINTMENT, VAGINAL/RECTAL EXAMINATION, SURGICAL PROCEDURE, OR ANY OTHER EXPOSURE?YES - PLEASE INDICATE :DENTAL PROCEDURE, VAGINAL EXAM, RECTAL EXAM, SURGICAL PROCEDURE, OTHER (DOCUMENT IN NOTES) LATEX RISK : HAVE YOU EVER HAD ANY DIFFICULTY BREATHING OR HIVES AFTER EATING OR HANDLING ANY FRUITS, OR VEGETABLES; SUCH KIWI, BANANAS, STONE FRUITS, OR CHESTNUTSYES - PLEASE INDICATE : BANANAS, STONE FRUITS LATEX RISK : DO YOU HAVE A PREVIOUS PERSONAL HISTORY OF MORE THAN NINE SURGERIES, SPINA BIFIDA, OR REPEATED CATHERIZATIONS? YES - PLEASE INDICATE : > 9 SURGERIES LATEX RISK : ARE YOU FREQUENTLY EXPOSED TO LATEX PRODUCTS IN YOUR OCCUPATION?NO DATE ASKED : 06/20/2020 ALCOHOL USE: NO. ALCOHOL SCREENING DID YOU HAVE A DRINK CONTAINING ALCOHOL IN THE PAST YEAR?NO POINTS0 INTERPRETATIONNEGATIVE RECREATIONAL DRUG USE DRUG USE?NO CAFFEINE CAFFEINE USE?NO SEXUAL HX HAD SEX IN THE LAST 12 MONTHS (VAGINAL, ORAL, OR ANAL)?NO HAVE YOU EVER HAD AN STD?NO HIV / HEP-C SCREENING HIV TEST OFFERED TO PATIENT:YES DATE OFFERED:07/18/2016 TEST ACCEPTED:NO HEP-C TEST OFFERED TO PATIENT:YES DATE OFFERED:07/18/2016 REASON:PATIENT DECLINED TEST ACCEPTED:NO REASON:PATIENT DECLINED [employer] L[employer] SPOKEN:ESTONIAN EDUCATION LEVEL OF EDUCATION:[employer] 8TH GRADE LEARNING BARRIERS / SPECIAL NEEDS CHANGE FROM LAST VISIT?NO BARRIERS TO LEARNING?NO HEARING IMPAIRED?NO VISION IMPAIRED?YES :CORRECTIVE LENSES COGNITIVELY IMPAIRED?NO READINESS TO LEARN?YES LEARNING PREFERENCES?NO LEARNING CAPABILITIES PRESENT?YES EMOTIONAL BARRIERS?NO SPECIAL DEVICES?YES :WHEELCHAIR DR BRAN IN PROCESS PLANT TAXONOMIST NEEDED?NO DOMESTIC VIOLENCE DO YOU FEEL SAFE IN YOUR ENVIRONMENT?YES OCCUPATION: DISABLED. DIET: NO CONCENTRATED SWEETS., CARBOHYDRATE CONTROLLED. EXERCISE: NO REGULAR EXERCISE. MARITAL STATUS: SINGLE. OTHERS AT HOME: NONE. - PFS REFERRAL NEEDED?NO CLERGY REFERRAL NEEDED?NO PUBLIC HEALTH REFERRAL NEEDED?NO HAS THE PATIENT BEEN EDUCATED REGARDING HIS/HER PLAN OF CARE?YES HAS THE PATIENT BEEN EDUCATED REGARDING PAIN, THE RISK FOR PAIN, THE IMPORTANCE OF EFFECTIVE PAIN MANAGEMENT, AND THE PAIN ASSESSMENT PROCESS?YES ADVANCE DIRECTIVE ADVANCE DIRECTIVE DISCUSSED WITH PATIENT:YES STATES SHE HAS HCP - BROTHER (LUCAS); COPY PLACED IN RECORDS, HE IS ALSO POA. SHE ALSO HAS MOLST FORM THAT IS ON FILE [phone] [facility] PHONE # REVIEW OF SYSTEMS CONSTITUTIONAL: ANY RECENT FEVER NO . CHILLS NO . WEIGHT CHANGE OF UNKNOWN REASONS NO . GASTROENTEROLOGY: NEW UNEXPLAINABLE CHANGES IN BOWEL CONTROL NO . CONSTIPATION NO . GENITOURINARY: ANY NEW CHANGE IN BLADDER CONTROL? NO . NEUROLOGY: NEW ONSET DIZZINESS OR NEUROLOGICAL CHANGES NOT MENTIONED NO . NEW NUMBNESS OR PAIN PATTERNS NOT MENTIONED AND PERTINENT TO TODAY'S VISIT NO . CARDIOLOGY: NEW CHEST PRESSURE NO . PATIENT DENIES NO . RESPIRATORY: UNEXPLAINABLE COUGH NO . NEW SHORTNESS OF BREATH NO . VITAL SIGNS WT 177.6 LBS, HT 67 IN, BMI 27.81 INDEX, BP 136/88 MM HG, HR 105 /MIN, RR 18 /MIN, TEMP 97.1 F, OXYGEN SAT % 94%, SAFE IN ENV? (Y/N) YES, NA INITIALS AW 1116T.ANN MARIE ANDRES. EXAMINATION GENERAL EXAMINATION: GENERALAWAKE,ALERT ,PLEASANT . PSYCHAFFECT NORMAL . LUNGS:LUNG ROGERS ARE CLEAR TO AUSCULTATION BILATERALLY. GOOD MOVEMENT OF AIR . HEART:S1, S2 IN A REGULAR RATE AND RHYTHM. NO SIGNIFICANT MURMURS, RUBS OR GALLOPS NOTED . ASSESSMENTS OTHER CHRONIC PAIN - G89.29 (PRIMARY) MYALGIA, OTHER SITE - M79.18 TREATMENT OTHER CHRONIC PAIN PAIN PROCEDURE LOGDATE OF PROCEDURE1PROCEDURE:TRIGGER POINT INJECTION BILATERAL NECK AND BILATERAL OCCIPALAMOUNT OF PRE SEDATE0/0RESULT:MARKED REDUCTION IN PAIN CONTINUES TODAY PROCEDURE CODES FA211 ESTABILISHED PATIENT [facility] CHARGE DISPOSITION & COMMUNICATION FOLLOW UP 3 MONTHS (REASON: HEADACHE/RESPONDS WELL TO TPI) ELECTRONICALLY SIGNED BY DANIELE MCKEON ON 06/23/2020 AT 03:20 PM EST DISCLAIMER : THIS IS A VISIT SUMMARY EXTRACTED FROM THE [employer] CHART. IT IS NOT A COPY OF THE [employer] PROGRESS NOTE. MARLYN
--- NOTE | 2020-06-24 02:27 | ECWPNPC ---
PATIENT NAME: GLENN FELDER : 1960 GENDER: FEMALE VISIT DATE: 06/20/2020 DISCHARGE DATE: 06/20/20 1137 VISIT LOCKED DATE TIME: PHYSICIAN: NAVNEET BRAY RESOURCE: NAVNEET BRAY REASON FOR APPOINTMENT 1. POST TRIGGER POINT INJECTION TO HEAD AND NECK HISTORY OF PRESENT ILLNESS GENERAL: HERE FOR POST PROCEDURE FOLLOW-UP. HAD TRIGGER POINT INJECTIONS BILATERAL NECK AND BILATERAL OCCIPITAL REGION ON 06/06/2020. REPORTING MARKED REDUCTION IN NECK AND HEAD PAIN POST PROCEDURE. IS SCHEDULED FOR ABDOMINAL SURGERY IN THE NEAR FUTURE.-. FALL RISK SCREENING: SCREENING : NO FALLS REPORTED IN THE LAST YEAR. PAIN SCREENING: PATIENT HAS A COMPLAINT OF ACUTE OR CHRONIC PAIN :YES LOCATION OF PAIN:HEAD, NECK INTENSITY OF PAIN (SCALE OF 1 TO 10):0 WHAT DOES YOUR PAIN FEEL LIKE:ACHING, BURNING, STABBING, THROBBING, SHOOTING DURATION:CONTINOUS, CONSTANT, ALL DAY PAIN IS INCREASED BY:OTHERS ONLY THE TPI NURSING NOTE: -. PAIN CENTER INTAKE QUESTIONS: DO YOU HAVE A HISTORY OF MRSA? :NO DO YOU TAKE A BLOOD THINNERS? :NO DO YOU HAVE ANY BLEEDING DISORDERS? :NO ANY NEW NUMBNESS OR WEAKNESS IN YOUR LEGS OR ARMS? :NO ANY PACEMAKER,DEFIBRILLATOR, OR DORSAL COLUMN STIMULATOR? :YES DORSAL COLUMIN STIMULATER DO YOU HAVE ANY RASHES OR OPEN SORES? :NO ARE YOU ALLERGIC TO IV DYE? :YES ARE YOU DIABETIC? :YES ANY NEW PROBLEMS WITH YOUR MEDICATIONS? :NO HAVE YOU RECEIVED A VACCINE IN THE PAST 30 DAYS? :NO DO YOU PLAN TO RECEIVE A VACCINE IN THE NEXT 21 DAYS? :NO DO YOU NEED ANY PRESCRIPTION? :NO DO YOU TAKE ANY IMMUNOSUPPRESSIVE MEDICATIONS? :NO IS THERE A CHANCE YOU COULD BE ? :NO ARE YOU BREAST FEEDING? :NO CURRENT MEDICATIONS TAKING IPRATROPIUM-ALBUTEROL 0.5-2.5 (3) MG/3ML SOLUTION 3 ML INHALATION EVERY 6 HRS PRN TAKING PEDIALYTE BOTTLE SOLUTION 330 ML ORALLY THREE TIMES DAILY TAKING MAY SAVAGE BAGS CLEAR VELCRO CLOSER ([id number]) ICD:V55.3 CHANGE NEEDED (EDUARD) TAKING MAY HAVE SAVAGE WAFERS NEW IMAGE SKIN BARRIERS FLATING FLANGES ICD: V55.3 (29881 2 1/2 CHANGE NEEDED (EDUARD) TAKING BABY WIPES 1 MISCELLANEOUS DIRECTED TOPICALLY PRN DX:569.62 TAKING SYRINGE 2-3 ML 3 ML MISCELLANEOUS DX: R11.0 INTRAMUSCULARLY TID PRN TAKING HOSPITAL BED USE DAILY DIRECTED DX: K91.2, G89.4, G90.522, N81.84 TAKING GLUCOMETER TESTING 4 TIMES A DAY AND NEEDED DX: , NOTES: MEDICAID #: [id number] TAKING TEST STRIPS - - DX: FOUR TIMES DAILY NEEDED, NOTES: MEDICAID #: [id number] TAKING BENTYL 10 MG CAPSULE 1 CAPSULE ORALLY FOUR TIMES A DAY PRN ABDOMINAL CRAMPING TAKING TRIAMCINOLONE ACETONIDE 0.1 % CREAM APPLY A THIN LAYER TO RED AREAS ON FINGERS EXTERNALLY ONCE A DAY TAKING NEBULIZER COMPRESSOR 1 INH DX: J45.909 EVERY 4 HOURS NEEDED TAKING NEBULIZER/TUBING/MOUTHPIECE - KIT DIRECTED DX: J45.909 EVERY 4 HOURS NEEDED TAKING ALCOHOL PREP PAD 70 % PAD DIRECTED E11.9 TEST BLOOD SUGAR QID PRN TAKING ZOFRAN 4 MG/2ML SOLUTION 4 MG INJECTION BID AT LEAST 8H APART TAKING SUCRALFATE 1 GM TABLET 1 TAB ORALLY TWICE A DAY TAKING DICYCLOMINE HCL 10 MG CAPSULE 1 CAPSULE ORALLY FOUR TIMES DAILY, NOTES: SEE BENTYL ABOVE TAKING ALBUTEROL SULFATE HFA 108 (90 BASE) MCG/ACT AEROSOL SOLUTION 2 PUFFS NEEDED INHALATION EVERY 4 HRS PRN, NOTES: NONE RECENTLY TAKING LANCETS MISC. - MISCELLANEOUS ONE TOUCH DELICA 33G LANCETS DX: FOUR TIMES DAILY NEEDED, NOTES: MEDICAID #: [id number] TAKING CICLOPIROX 8 % SOLUTION 1 APPLICATION TO THE L 5TH FINGERNAIL EXTERNALLY ONCE A DAY, CLEAN OFF WITH AN ALCOHOL PREP PAD ONCE A WEEK TAKING SODIUM CHLORIDE 0.9 % GEL ONE APPLICATION INSIDE THE R NOSTRIL EVERY 2 HRS PRN TAKING AMITRIPTYLINE HCL 50 MG TABLET DIRECTED ORALLY 1 TAB IN AM AND 3 TABS AT BEDTIME TAKING SIMETHICONE 80 MG TABLET CHEWABLE 2 TABLETS AFTER MEALS AND AT BEDTIME NEEDED ORALLY THREE TIMES A DAY NEEDED FOR ABDOMINAL PAIN AND DISTENTION TAKING AMMONIUM LACTATE 12 % CREAM 1 APPLICATION EXTERNALLY TWICE A DAY TO FEET TAKING MESALAMINE 1000 MG SUPPOSITORY 1 SUPPOSITORY AT BEDTIME RECTAL ONCE A DAY TAKING MOMETASONE FUROATE 50 MCG/ACT SUSPENSION 2 SPRAYS IN EACH NOSTRIL NASALLY ONCE A DAY TAKING ESTRADIOL 0.1 MG/GM CREAM 1 GRAM VAGINAL DAILY TAKING VICTOZA 18 MG/3ML SOLUTION PEN-INJECTOR 0.6MG DAILY X 1 WEEK, THENI NCREAST TO 1.2MG DAILY SUBCUTANEOUS DAILY, NOTES: 06/05/20 0800 TAKING LEVEMIR FLEX TOUCH 100 UNIT/ML SOLUTION 35 UNITS SUBCUTANEOUS IN THE MORNING, NOTES: 06/05/20 0800 TAKING LACTULOSE 20 GM/30ML SOLUTION 15 ML ORALLY AC AND HS TAKING METOCLOPRAMIDE HCL 10 MG TABLET 1 TABLET BEFORE MEALS AND BEDTIME ORALLY THREE TIMES DAILY BEFORE MEALS TAKING PEN NEEDLES 5/16" 31G X 8 MM MISCELLANEOUS DIRECTED SUBCUTANEOUSLY BID DX: E11.65 TAKING MEDIPORE H SURGICAL 4"X10YD - TAPE DIRECTED TAKING NYSTATIN [id number] UNIT/GM POWDER APPLY TO AFFECTED AREA(S) AROUND STOMA 2 TIMES A DAY DIRECTED UNTIL HEALED NOT-TAKING LEVEMIR FLEXTOUCH 100 UNIT/ML SOLUTION PEN-INJECTOR INJECT 35 UNITS UNDER THE SKIN IN THE MORNING , NOTES: SEE ABOVE MEDICATION LIST REVIEWED AND RECONCILED WITH THE PATIENT PAST MEDICAL HISTORY DM II WITH NEUROPATHY, HBA1C GOAL IS 8.0 FOR NOW B/C OF RISK OF HYPOGLYCEMIA, CONSIDER LOWER IF CONSISTENTLY ACHIEVED ASTHMA HYPERLIPIDEMIA GERD NEPHROLITHIASIS 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 ALLERGIC RHINITIS CHRONIC MAXILLARY SINUSITIS CHRONIC HEADACHES (PAIN MANAGEMENT) CHRONIC PAIN SYNDROME/RSD (PAIN MANAGEMENT) PERSONAL HISTORY OF VENOUS THROMBOSIS AND EMBOLISM (RESOLVED 12/19/2009) ABDOMINAL HERNIA FLEXURAL ECZEMA MUSCLE TRANSPLANT IN JULY ALLERGIES IODINE: NERVES, TIGHT MUSCLES - SIDE EFFECTS GABAPENTIN: NERVOUS SYSTEM,SHAKEY - SIDE EFFECTS GABITRIL: NERVOUS - SIDE EFFECTS KETOROLAC TROMETHAMINE: VOMITING - SIDE EFFECTS MEPERIDINE HCL: OUT OF BODY EXPERIENCE - SIDE EFFECTS MORPHINE SULFATE: SEVERE H/A WITH BIG DOSE - SIDE EFFECTS PROMETHAZINE HCL: OUT OF BODY EXPERIENCE - SIDE EFFECTS TRAMADOL: SHAKES - SIDE EFFECTS OXYCODONE: VOMITING,HIVES - ALLERGY PENICILLIN (FOR ALLERGIES USE ONLY): HIVES - ALLERGY FENTANYL: NERVOUS - SIDE EFFECTS DROPERIDOL: OUT OF BODY - SIDE EFFECTS CODEINE SULFATE: OUT OF BODY EXPERIENCE - SIDE EFFECTS PHENOTHIAZINES: NERVOUS SYSTEM - SIDE EFFECTS QUINOLONES- CIPRO,TEQUIN: HIVES - ALLERGY RED FOOD DYE: RASH - ALLERGY LIDODERM (LICOCANINE): HEART RACES - SIDE EFFECTS SULFA: HIVES - ALLERGY ASPIRIN: HIVES - ALLERGY ATIVAN: HALLUCINATIONS - SIDE EFFECTS AZITHROMYCIN: HIVES - ALLERGY BACLOFEN: AFFECTED NERVOUS SYT - SIDE EFFECTS LYRICA: SHAKES, EVERYTHING IS BLACK - SIDE EFFECTS VICODIN: CONFUSION - SIDE EFFECTS MACROBID: HIVES, BLURRED VISION - ALLERGY READI-CAT: HIVES - ALLERGY ALBUTEROL SULFATE: COUGH - ALLERGY GASTROGRAFIN: ONLY 1 BOTTLE PER TEST DAY (CAN NOT TOLERATE ANY MORE THAN 1 BOTTLE) - CONTRAINDICATION LATEX (FOR ALLERGY USE ONLY): DIFFICULTY - ALLERGY TIZANIDINE HCL: HIVES - ALLERGY SOCIAL HISTORY GENERAL: TOBACCO USE ARE YOU A:NONSMOKER NEVER SMOKER LATEX QUESTIONNAIRE LATEX ALLERGY : HAVE YOU EVER DEVELOPED ANY TYPE OF REACTION AFTER HANDLING LATEX PRODUCTS SUCH RUBBER GLOVES, CONDOMS, DIAPHRAGMS, BALLOONS, SOCKS, OR UNDERWEAR?YES SEE ALLERGY LIST - PLEASE INDICATE :OTHER (DOCUMENT IN NOTES) LATEX ALLERGY : HAVE YOU EVER DEVELOPED ANY TYPE OF REACTION DURING OR AFTER DENTAL APPOINTMENT, VAGINAL/RECTAL EXAMINATION, SURGICAL PROCEDURE, OR ANY OTHER EXPOSURE?YES - PLEASE INDICATE :DENTAL PROCEDURE, VAGINAL EXAM, RECTAL EXAM, SURGICAL PROCEDURE, OTHER (DOCUMENT IN NOTES) LATEX RISK : HAVE YOU EVER HAD ANY DIFFICULTY BREATHING OR HIVES AFTER EATING OR HANDLING ANY FRUITS, OR VEGETABLES; SUCH KIWI, BANANAS, STONE FRUITS, OR CHESTNUTSYES - PLEASE INDICATE : BANANAS, STONE FRUITS LATEX RISK : DO YOU HAVE A PREVIOUS PERSONAL HISTORY OF MORE THAN NINE SURGERIES, SPINA BIFIDA, OR REPEATED CATHERIZATIONS? YES - PLEASE INDICATE : > 9 SURGERIES LATEX RISK : ARE YOU FREQUENTLY EXPOSED TO LATEX PRODUCTS IN YOUR OCCUPATION?NO DATE ASKED : 06/20/2020 ALCOHOL USE: NO. ALCOHOL SCREENING DID YOU HAVE A DRINK CONTAINING ALCOHOL IN THE PAST YEAR?NO POINTS0 INTERPRETATIONNEGATIVE RECREATIONAL DRUG USE DRUG USE?NO CAFFEINE CAFFEINE USE?NO SEXUAL HX HAD SEX IN THE LAST 12 MONTHS (VAGINAL, ORAL, OR ANAL)?NO HAVE YOU EVER HAD AN STD?NO HIV / HEP-C SCREENING HIV TEST OFFERED TO PATIENT:YES DATE OFFERED:07/18/2016 TEST ACCEPTED:NO HEP-C TEST OFFERED TO PATIENT:YES DATE OFFERED:07/18/2016 REASON:PATIENT DECLINED TEST ACCEPTED:NO REASON:PATIENT DECLINED ANGLICAN [id number] [employer]IAN LANGUAGE LANGUAGES SPOKEN:NEPALI EDUCATION LEVEL OF EDUCATION:[employer] 8TH GRADE LEARNING BARRIERS / SPECIAL NEEDS CHANGE FROM LAST VISIT?NO BARRIERS TO LEARNING?NO HEARING IMPAIRED?NO VISION IMPAIRED?YES :CORRECTIVE LENSES COGNITIVELY IMPAIRED?NO READINESS TO LEARN?YES LEARNING PREFERENCES?NO LEARNING CAPABILITIES PRESENT?YES EMOTIONAL BARRIERS?NO SPECIAL DEVICES?YES :WHEELCHAIR DR BRAN IN PROCESS PAINT GRINDER STONE MILL NEEDED?NO DOMESTIC VIOLENCE DO YOU FEEL SAFE IN YOUR ENVIRONMENT?YES OCCUPATION: DISABLED. DIET: NO CONCENTRATED SWEETS., CARBOHYDRATE CONTROLLED. EXERCISE: NO REGULAR EXERCISE. MARITAL STATUS: SINGLE. OTHERS AT HOME: NONE. - PFS REFERRAL NEEDED?NO CLERGY REFERRAL NEEDED?NO PUBLIC HEALTH REFERRAL NEEDED?NO HAS THE PATIENT BEEN EDUCATED REGARDING HIS/HER PLAN OF CARE?YES HAS THE PATIENT BEEN EDUCATED REGARDING PAIN, THE RISK FOR PAIN, THE IMPORTANCE OF EFFECTIVE PAIN MANAGEMENT, AND THE PAIN ASSESSMENT PROCESS?YES ADVANCE DIRECTIVE ADVANCE DIRECTIVE DISCUSSED WITH PATIENT:YES STATES SHE HAS HCP - BROTHER (LUCAS); COPY PLACED IN RECORDS, HE IS ALSO POA. SHE ALSO HAS MOLST FORM THAT IS ON FILE [phone] [facility] PHONE # REVIEW OF SYSTEMS CONSTITUTIONAL: ANY RECENT FEVER NO . CHILLS NO . WEIGHT CHANGE OF UNKNOWN REASONS NO . GASTROENTEROLOGY: NEW UNEXPLAINABLE CHANGES IN BOWEL CONTROL NO . CONSTIPATION NO . GENITOURINARY: ANY NEW CHANGE IN BLADDER CONTROL? NO . NEUROLOGY: NEW ONSET DIZZINESS OR NEUROLOGICAL CHANGES NOT MENTIONED NO . NEW NUMBNESS OR PAIN PATTERNS NOT MENTIONED AND PERTINENT TO TODAY'S VISIT NO . CARDIOLOGY: NEW CHEST PRESSURE NO . PATIENT DENIES NO . RESPIRATORY: UNEXPLAINABLE COUGH NO . NEW SHORTNESS OF BREATH NO . VITAL SIGNS WT 177.6 LBS, HT 67 IN, BMI 27.81 INDEX, BP 136/88 MM HG, HR 105 /MIN, RR 18 /MIN, TEMP 97.1 F, OXYGEN SAT % 94%, SAFE IN ENV? (Y/N) YES, NA INITIALS AW [id number].ANN MARIE ANDRES. EXAMINATION GENERAL EXAMINATION: GENERALAWAKE,ALERT ,PLEASANT . PSYCHAFFECT NORMAL . LUNGS:LUNG ROGERS ARE CLEAR TO AUSCULTATION BILATERALLY. GOOD MOVEMENT OF AIR . HEART:S1, S2 IN A REGULAR RATE AND RHYTHM. NO SIGNIFICANT MURMURS, RUBS OR GALLOPS NOTED . ASSESSMENTS OTHER CHRONIC PAIN - G89.29 (PRIMARY) MYALGIA, OTHER SITE - M79.18 TREATMENT OTHER CHRONIC PAIN PAIN PROCEDURE LOGDATE OF PROCEDURE1PROCEDURE:TRIGGER POINT INJECTION BILATERAL NECK AND BILATERAL OCCIPALAMOUNT OF PRE SEDATE0/0RESULT:MARKED REDUCTION IN PAIN CONTINUES TODAY PROCEDURE CODES FA211 ESTABILISHED PATIENT FORMERLY [facility] CHARGE DISPOSITION & COMMUNICATION FOLLOW UP 3 MONTHS (REASON: HEADACHE/RESPONDS WELL TO TPI) ELECTRONICALLY SIGNED BY DANIELE MCKEON ON 06/23/2020 AT 03:20 PM EST DISCLAIMER : THIS IS A VISIT SUMMARY EXTRACTED FROM THE [employer] CHART. IT IS NOT A COPY OF THE [employer] PROGRESS NOTE. MARLYN
== END ==
LOC: M PAIN 10:45
PROVIDERS: ATTEND Nurse Practitioner Family
DX: G89.29 Other chronic pain (principal); M79.18 Myalgia, other site; E11.40 Type 2 diabetes mellitus with diabetic neuropathy, unspecified; J45.909 Unspecified asthma, uncomplicated; Z88.0 Allergy status to penicillin; Z88.1 Allergy status to other antibiotic agents; Z88.2 Allergy status to sulfonamides; Z88.3 Allergy status to other anti-infective agents; Z88.4 Allergy status to anesthetic agent; Z88.5 Allergy status to narcotic agent; Z88.6 Allergy status to analgesic agent; Z91.02 Food additives allergy status; Z91.040 Latex allergy status; Z91.041 Radiographic dye allergy status; Z79.4 Long term (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; Z79.899 Other long term (current) drug therapy

== ENCOUNTER 2020-07-13 08:15 | Outpatient (CLI) | payer OTHER ==
[~2020-07-13] VITALS: Ht 167.6 cm; Wt 73.0 kg
[2020-07-13 08:58] VITALS: BP 138/67
[2020-07-13] MEDS ORDERED: SODIUM CHLORIDE 0.9% INJ 10 ML SYR IV SCH (09:00)
[2020-07-13 13:02] LABS: HEMOGLOBIN A1c 10.1 %
== END 2020-07-13 09:05 | disposition home or self-care (01) ==
LOC: M INFU 08:15
PROVIDERS: ATTEND Family Medicine
DX: E11.65 Type 2 diabetes mellitus with hyperglycemia (principal); E83.42 Hypomagnesemia; Z88.1 Allergy status to other antibiotic agents; Z88.0 Allergy status to penicillin; Z88.6 Allergy status to analgesic agent; Z88.8 Allergy status to other drugs, medicaments and biological substances; Z91.041 Radiographic dye allergy status
CPT/HCPCS: 36591; 83036; 83735; 96523; J1642

== ENCOUNTER 2020-07-19 12:41 | Inpatient (IN) | payer OTHER ==
[~2020-07-19] VITALS: Ht 170.2 cm; Wt 79.6 kg
[~2020-07-19 12:41] MED LIST changes: -SIME180C PO; +SIME180C25 PO
[2020-07-19] MEDS ORDERED: NS 1,000 ML IV ONE (14:20)
[2020-07-19] MEDS ORDERED: ONDANSETRON 4MG/2ML VIAL IV ONE ×2 (14:20)
[2020-07-19] MEDS ORDERED: HYDROMORPHONE HCL 0.5 MG/ 0.5 ML SYRINGE (J1170 PER 1) IV ONE ×2 (14:20→16:25)
[2020-07-19 14:35] LABS: BASO % 0.6 % (0.0-1.0); EOS # 0.1 10^3/uL (0.0-0.5); EOS % 0.8 % (0.0-3.0); HEMATOCRIT 37.8 % (36.0-47.0); HEMOGLOBIN 12.2 g/dl (12.0-15.5); LYMPH # 1.3 10^3/uL (1.5-5.0); LYMPH % 20.7 % (24.0-44.0); MEAN CORPUSCULAR HEMOGLOBIN 32.9 pg (27.0-33.0); MEAN CORPUSCULAR HGB CONC 32.3 g/dl (32.0-36.5); MEAN CORPUSCULAR VOLUME 101.9 fl (80.0-96.0); MONO # 0.6 10^3/uL (0.0-0.8); MONO % 8.8 % (2.0-8.0); NEUTROPHILS # 4.3 10^3/uL (1.5-8.5); NEUTROPHILS % 68.6 % (36.0-66.0); PLATELET COUNT, AUTOMATED 200 10^3/uL (150-450); RED BLOOD COUNT 3.71 10^6/uL (4.00-5.40); WHITE BLOOD COUNT 6.2 10^3/uL (4.0-10.0)
[2020-07-19 14:46] LABS: INR 0.91; PROTHROMBIN TIME 12.5 SECONDS (12.5-14.3)
[2020-07-19 14:47] LABS: PARTIAL THROMBOPLASTIN TIME 51.9 SECONDS (24.2-38.5)
[2020-07-19 15:06] LABS: ALBUMIN 3.2 GM/DL (3.2-5.2); ALT/SGPT 41 U/L (12-78); AMYLASE 27 U/L (25-115); BILIRUBIN,DIRECT < 0.1 MG/DL (0.0-0.2); BILIRUBIN,TOTAL 0.2 MG/DL (0.2-1.0); CK-MB VALUE MASS 1.2 NG/ML (<3.6); CPK CREATINE PHOSPHOKINASE 50 U/L (26-192); LIPASE 95 U/L (73-393); TOTAL PROTEIN 7.8 GM/DL (6.4-8.2); TROPONIN I < 0.02 NG/ML (< 0.10)
--- NOTE | 2020-07-19 16:00 | REP ---
INDICATION: llq pain and lower abl pain COMPARISON: 05/21/2020. TECHNIQUE: CT Scan of the abdomen and pelvis was performed without intravenous contrast. Sagittal and coronal reconstruction images performed. FINDINGS: Lung bases: There is mild patchy atelectasis or infiltrate in the left lung base. Liver: Grossly unremarkable. Gallbladder: Prior cholecystectomy. Spleen: Grossly unremarkable.. Adrenals: Normal. Pancreas: Grossly unremarkable.. Kidneys: No hydronephrosis. There is a punctate calcification in the lower pole the left kidney. Ureters demonstrate no dilatation or calculus. Small and large bowel: Left ostomy is again noted. Prior colectomy. There are again multiple surgical clips throughout the abdomen and pelvis. No free intraperitoneal air or bowel obstruction. Free fluid: None. Abdominal aorta: No aneurysm. Adenopathy: None. Osseous structures: Unremarkable. Pelvis: No mass. No bladder calculus seen. Prior hysterectomy. Dorsal column stimulator leads are again noted. IMPRESSION: Mild patchy atelectasis or infiltrate left lung base. Otherwise no acute findings. <Electronically signed by Geovanni Camejo > 07/19/20 [id number]
[2020-07-19] MEDS ORDERED: MUPI2OI TOP (17:11)
[2020-07-19] MEDS ORDERED: ESTR1CRE PV (17:27)
[2020-07-19] MEDS ORDERED: NYST1POW9 TOP (17:27)
[2020-07-19] MEDS ORDERED: TRIA1CR80 TOP (17:27)
[2020-07-19] MEDS ORDERED: DILA2TAB6 PO (17:27)
[2020-07-19] MEDS ORDERED: VICT18IN SC (17:27)
[2020-07-19] MEDS ORDERED: MESA50SU PR (17:29)
[2020-07-19] MEDS ORDERED: AMMO12LO TOP (17:29)
[2020-07-19] MEDS ORDERED: ONDA4INJ4 IV (17:34)
[2020-07-19] MEDS ORDERED: DICY10CA13 PO (17:34)
[2020-07-19] MEDS ORDERED: MOME50SP2 NARES (17:34)
[2020-07-19] MEDS ORDERED: TRIAMCINOLONE ACET 0.1% CREAM 80 GM TOP PRN (18:30)
[2020-07-19] MEDS ORDERED: GLUCAGON INJ 1MG VIAL SC PRN (18:30)
[2020-07-19] MEDS ORDERED: LACTIC ACID 12% LOTION 225 GM BTL TOP PRN (18:30)
[2020-07-19] MEDS ORDERED: DEXTROSE 50% 50 ML SYRINGE IV PRN (18:30)
[2020-07-19] MEDS ORDERED: GLUCOSE 4GM CHEW TABLET PO PRN (18:30)
[2020-07-19] MEDS ORDERED: HYDROmorphone 2 MG TAB PO PRN (18:30)
[2020-07-19] MEDS ORDERED: HumaLOG INSULIN (NovoLOG) PER UNIT SC SCH (21:00)
[2020-07-19] MEDS ORDERED: hydrALAZINE 20MG/ML 1ML VIAL (J0360 PER 20MG) IV PRN (22:10)
--- NOTE | 2020-07-19 22:43 | HPEPDOC ---
General Date of Admission Jul 19, 2020 at 18:25 Date of Service: Jul 19, 2020 Chief Complaint The patient is a 59-year-old female admitted with a reason for visit of Intractable Abdominal Pain. Source: Patient History of Present Illness Mrs. Olson is a 59 year old female with multiple abdominal surgeries who presents with intractable abdominal pain. About 3 days ago, her abdominal pain started to worsen. Due to the pain, she lost her appetite. She tried taking her Dilaudid and hoped that the pain would improved. She has been following with Dr. Campuzano outpatient who had hope to get her to [place], [place] for a reconstruction specialist for her multiple abdominal hernias. Unfortunately, patient has not figured out transportation to [place], [place]. Since her pain started, she wei that her hernias were getting more distended. This morning at 2AM, she woke up with excruciating pain. Pain was sharp, stabbing, and shooting. She would have worsening pain when stool pass from her ostomy. In addition, she was very tender around each of her ventral hernias (on the left, middle, and right hernias). Patient came to the ED for evaluation. Unable to due contrast study due to allergy to contrast. CT abd/pelvis did not demonstrate any acute abnormalities. Patient tried to stand, but the patient was so severe she felt like she was going to pass out. General surgery, Dr. Ram was consulted. Planning for conservative measures at this time. Patient will be admitted for intractable abdominal pain. Home Medications Scheduled Amitriptyline HCl (Amitriptyline HCl) 50 Mg Tab, 150 MG PO QPM, (Reported) Amitriptyline HCl (Amitriptyline HCl) 50 Mg Tab, 50 MG PO DAILY, (Reported) Cholecalciferol (Vitamin D3) (Vitamin D3) 1,000 Unit Tablet, 1,000 UNITS PO DAILY, (Reported) Dicyclomine HCl (Dicyclomine HCl) 10 Mg Capsule, 10 MG PO QID, (Reported) Estradiol (Estrace) 42.5 Gm Cream.appl, 1 GRAM PV DAILY, (Reported) Insulin Detemir (Levemir Flextouch) 100 Unit/1 Ml Insuln.pen, 35 UNITS SQ DAILY, (Reported) Lactulose (Lactulose) 10 Gm/15 Ml Noelle, 30 ML PO TID, (Reported) Liraglutide (Victoza 2-Eulalio) 0.6 Mg/0.1 Ml Pen.injctr, 1.2 MG SC DAILY, (Reported) Mesalamine (Canasa) 1,000 Mg Supp.rect, 1,000 MG MS QHS, (Reported) Metoclopramide HCl (Reglan) 10 Mg Tablet, 10 MG PO AC, (Reported) Mometasone Furoate (Mometasone Furoate) 17 Gm [place].pump, 2 SPR NARES DAILY, (Reported) Mupirocin (Mupirocin) 2 % Oint...g., 1 DOSE TOP TID, (Reported) TO NARES Nystatin (Nystatin Powder) 15 Gm Powder, 1 APLCT TOP BID, (Reported) APPLY AROUND STOMA UNTIL IRRITATION HEALS Ondansetron HCl/Pf (Ondansetron HCl 4 mg/2 ml Vial) 4 Mg/2 Ml Vial, 4 MG IV BID, (Reported) Sennosides/Docusate Sodium (Senna-S Tablet) 1 Each Tablet, 1 TAB PO BID, (Reported) Simethicone (Simethicone) 80 Mg Tab.chew, 160 MG PO WM, (Reported) Sucralfate (Sucralfate) 1 Gm Tablet, 1 GM PO BID, (Reported) Scheduled PRN Albuterol Sulf (Albuterol Sulfate) 2.5 Mg/3 Ml Vial.neb, 2.5 MG INH Q4H PRN for SHORTNESS OF BREATH, (Reported) Ammonium Lactate (Ammonium Lactate) 12% Lotion, 1 APLCT TOP BID PRN for DRY SKIN, (Reported) TO BOTH FEET Hydromorphone HCl (Dilaudid) 2 Mg Tablet, 2 MG PO BIDP PRN for pain, (Reported) Triamcinolone Acet (Triamcinolone Acetonide 0.1% Crm) 80 Gm Cream..g., 1 DOSE TOP BID PRN for RASH, (Reported) Allergies Coded Allergies: Contrast Media (Verified Allergy, Severe, throat swelling, 12/21/19) latex (Verified Allergy, Severe, throat closes, 12/21/19) Penicillins (Verified Allergy, Intermediate, hives, 12/21/19) Sulfa (Sulfonamide Antibiotics) (Verified Allergy, Intermediate, hives, 12/21/19) adhesive tape (Verified Allergy, Intermediate, paper tape - blisters, hives, 12/21/19) azithromycin (Verified Allergy, Intermediate, hives, 12/21/19) ciprofloxacin (Verified Allergy, Intermediate, hives, 12/21/19) colchicine (Verified Allergy, Intermediate, hives, 01/13/20) gatifloxacin (Verified Allergy, Intermediate, hives, 12/21/19) nitrofurantoin (Verified Allergy, Intermediate, hives, 12/21/19) oxycodone (Verified Allergy, Intermediate, hives, 12/21/19) strawberry (Verified Allergy, Intermediate, hives, 12/21/19) tomato (Verified Allergy, Intermediate, hives, 12/21/19) Grape (Verified Allergy, Unknown, GRAPE JUICE, 12/21/19) grape (Verified Allergy, Unknown, 10/20/19) ipratropium (Verified Allergy, Unknown, 10/20/19) iodine (Verified Adverse Reaction, Severe, "out of body experience" eyes roll to back of head, 12/21/19) theophylline (Verified Adverse Reaction, Severe, seizures, 12/21/19) droperidol (Verified Adverse Reaction, Intermediate, "out of body", eyes roll back in head, 12/21/19) lidocaine (Verified Adverse Reaction, Intermediate, increases HR when applied to upper body, 12/21/19) lorazepam (Verified Adverse Reaction, Intermediate, hallucinations, alters mind, 12/21/19) meperidine (Verified Adverse Reaction, Intermediate, "out of body", shaky, 12/21/19) morphine (Verified Adverse Reaction, Intermediate, severe headache with large doses, 12/21/19) pregabalin (Verified Adverse Reaction, Intermediate, anxiety, shaking, 12/21/19) albuterol (Verified Adverse Reaction, Mild, shaky, 12/21/19) aspirin (Verified Adverse Reaction, Mild, ulcers - full strength only, 12/21/19) baclofen (Verified Adverse Reaction, Mild, shaking, 12/21/19) chlorpromazine (Verified Adverse Reaction, Mild, "out of body experience", 01/13/20) codeine (Verified Adverse Reaction, Mild, "out of body", 01/13/20) fentanyl (Verified Adverse Reaction, Mild, nervous, 12/21/19) fluphenazine (Verified Adverse Reaction, Mild, "out of body experience", 01/13/20) gabapentin (Verified Adverse Reaction, Mild, "very nervous/Anxious", 01/13/20) hydrocodone (Verified Adverse Reaction, Mild, confusion (Vicodin), 01/13/20) mesoridazine (Verified Adverse Reaction, Mild, "out of body experience", 01/13/20) midazolam (Verified Adverse Reaction, Mild, nervous, 12/21/19) perphenazine (Verified Adverse Reaction, Mild, "out of body experience", 01/13/20) prochlorperazine (Verified Adverse Reaction, Mild, "out of body experience", 01/13/20) promethazine (Verified Adverse Reaction, Mild, "out of body" - phenothiazines, 01/13/20) propoxyphene (Verified Adverse Reaction, Mild, "out of body", 01/13/20) red dye (Verified Adverse Reaction, Mild, not a true allergy, please see comments, 12/21/19) Patient states that she becomes anxious if the contents of her ostomy are red, so she tries to avoid. tiagabine (Verified Adverse Reaction, Mild, nervous, 12/21/19) tramadol (Verified Adverse Reaction, Mild, vomiting, 01/13/20) trifluoperazine (Verified Adverse Reaction, Mild, "out of body experience", 01/13/20) magnesium citrate (Verified Adverse Reaction, Unknown, states it makes her stomach bloat from the carbination, 01/13/20) Past Medical History Medical History 1. Diabetes mellitus. 2. Small/large bowel obstruction Surgical History 1. Colectomy. 2. Hysterectomy. 3. Multiple small bowel resections. 4. 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); Denies: Vision change ENT: Denies: Sore Throat Skin: Denies: Rash Pulmonary: Reports: Dyspnea (due to pain) Cardiovascular: Denies: Chest Pain Gastrointestinal: Reports: Nausea, Abdominal Pain, Other Symptoms (decreased output from ostomy) Genitourinary: Denies: Dysuria Hematologic: Denies: Bruising Neurological: Denies: Numbness Psych: Denies: Anxiety, Depression Physical Examination General Exam: Positive: Alert, Cooperative, Mild Distress Eye Exam: Positive: EOMI; Negative: Sclera icteric ENT Exam: Positive: Atraumatic Neck Exam: Positive: Supple Chest Exam: Positive: Clear to auscultation; Negative: Rales, Rhonchi, Wheezing Heart Exam: Positive: Tachycardic, Regular Rhythm Abdomen Exam: Positive: Normal bowel sounds Extremity Exam: Positive: Edema (bilateral pitting) Neuro Exam: Positive: Normal Speech, Cranial Nerves 3-12 NL Psych Exam: Positive: Anxiety Vital Signs Vital Signs Date Time Temp Pulse Resp B/P (MAP) Pulse Ox O2 Delivery O2 Flow Rate FiO2 07/19/20 20:49 103 93 07/19/20 20:45 201/97 (131) 07/19/20 18:37 97.8 20 Room Air Laboratory Data Labs 24H Laboratory Tests 2 07/19/20 13:52: Immature Granulocyte % (Auto) 0.5, Neutrophils (%) (Auto) 68.6H, Lymphocytes (%) (Auto) 20.7L, Monocytes (%) (Auto) 8.8H, Eosinophils (%) (Auto) 0.8, Basophils (%) (Auto) 0.6, Neutrophils # (Auto) 4.3, Lymphocytes # (Auto) 1.3L, Monocytes # (Auto) 0.6, Eosinophils # (Auto) 0.1, Basophils # (Auto) 0.0, Nucleated Red Blood Cells % (auto) 0.0, Prothrombin Time 12.5, Prothromb Time International Ratio 0.91, Activated Partial Thromboplast Time 51.9H, Lactic Acid Level 2.4*H, Total Bilirubin 0.2, Direct Bilirubin < 0.1, Aspartate Amino Transf (AST/SGOT) 42H, Alanine Aminotransferase (ALT/SGPT) 41, Alkaline Phosphatase 108, Total Creatine Kinase 50, Creatine Kinase MB 1.2, Creatine Kinase MB Relative Index 2.40, Troponin I < 0.02, Total Protein 7.8, Albumin 3.2, Albumin/Globulin Ratio 0.7L, Amylase Level 27, Lipase 95 07/19/20 14:30: POC Glucose (Misc Panel) 171H, POC Sodium (Misc Panel) 135L, POC Potassium (Misc Panel) 3.9, POC Chloride (Misc Panel) 102, POC Total CO2 (Misc Panel) 25.0, POC Blood Urea Nitrogen (Misc Panel 11, POC Ionized Calcium (Misc Panel) 4.9, POC Creatinine (Misc Panel) 0.3L, POC Hematocrit (Misc Panel) 37.0L 07/19/20 17:00: Urine Color YELLOW, Urine Appearance CLOUDYH, Urine pH 5.0, Urine Specific [place] 1.021, Urine Protein 1+H, Urine Glucose (UA) 2+H, Urine Ketones TRACEH, Urine Blood NEGATIVE, Urine Nitrite POSITIVEH, Urine Bilirubin NEGATIVE, Urine Urobilinogen 0.2, Urine Leukocyte Esterase 2+H, Urine WBC (Auto) 85H, Urine RBC (Auto) 2, Urine Hyaline Casts (Auto) 0, Urine Bacteria (Auto) 2+H, Urine Squamous Epithelial Cells 9, Urine Mucus (Auto) SMALL, Urine Sperm (Auto) 07/19/20 18:36: Bedside Glucose (Misc Panel) 128H 07/19/20 18:59: Lactic Acid Followup at 4 Hours 2.1*H 07/19/20 19:50: Bedside Glucose (Misc Panel) 157H CBC/BMP Laboratory Tests 07/19/20 13:52 Microbiology Microbiology 07/19/20 Blood Culture, Received Pending 07/19/20 Urine Culture, Received Pending 07/19/20 Respiratory Virus Panel (PCR) (JOSY) - Final, Complete 07/19/20 Blood Culture, Received Pending Assessment/Plan Mrs. Olson is a 59 year old female with multiple abdominal surgeries who presents with intractable abdominal pain. General surgery, Dr. Ram consulted, recommendations appreciated. Recommending conservative management. Clear liquid diet with analgesia. Plan / VTE VTE Prophylaxis Ordered?: Yes Plan Plan 1. Intractable abdominal pain -Patient has had multiple abdominal surgeries including bowel resection and hernia repair -Patient takes Dilaudid at home -Clear liquid diet -Continue Dicyclomine, mesalamine, and metoclopramide -Continue Carafate, simethicone. Added on omeprazole -Analgesia with Dilaudid protocol -General surgery consulted, recommendations appreciated 2. Diabetes mellitus -Insulin sliding scale -Decrease basal insulin from 35u to 20u due to clear liquid diet 3. DVT ppx -SCD and TEDs GASTON CABRERA DO Jul 19, 2020 22:28
[2020-07-19] MEDS: DICYCLOMINE 10 MG CAP PO SCH (23:38)
[2020-07-20] VITALS (18 sets, daily range): BP systolic 102–143; BP diastolic 52–76; O2SAT 95–99
[2020-07-20] MEDS: SENOKOT S TAB PO SCH ×3 (01:08→21:36)
[2020-07-20] MEDS: SUCRALFATE 1 GM TAB PO SCH ×3 (01:08→21:36)
[2020-07-20] MEDS: AMITRIPTYLINE 50 MG TAB PO SCH ×3 (01:08→21:54)
[2020-07-20] MEDS: LACTULOSE 20 GM/30 ML SYRUP UD PO SCH ×4 (01:09→21:36)
[2020-07-20] MEDS: ONDANSETRON 4MG/2ML VIAL IV SCH ×3 (01:09→21:35)
[2020-07-20] MEDS: NYSTATIN 100,000 UNITS/GM TOPICAL PWD 15 GM TOP SCH ×3 (01:10→21:55)
--- NOTE | 2020-07-20 01:26 | ECGEPIP ---
[facility] - ED Test Date: 2020-07-19 Pat Name: GLENN FELDER Department: Room: - Gender: Female Slate Picker: KARRIE : [id number] Requested By: Miranda Bryan Order Number: [id number] Reading MD: Juan Antunez Measurements Intervals [place] Rate: 96 P: 101 UT: 184 QRS: 27 QRSD: 76 T: 129 QT: 380 QTc: 480 Interpretive Statements Normal sinus rhythm NSTTW ABNORMALITY(S) SIMILAR TO 12/21/19 Electronically Signed on 07-20-2020 1:26:12 EDT by Juan Antunez
[2020-07-20] MEDS: D5W/0.45% SODIUM CHLORIDE 1,000 ML IV SCH ×3 (01:38→21:51)
[2020-07-20] MEDS: MUPIROCIN 2% OINT 22 GM TUBE TOP SCH ×4 (01:39→21:55)
[2020-07-20] MEDS: MESALAMINE 1,000 MG SUPP PR SCH ×2 (01:39→21:54)
[2020-07-20] MEDS: HYDROmorphone HCL 2 MG/ML 1ML VIAL (J1170) IV PRN ×6 (01:39→21:36)
[2020-07-20 04:50] LABS: HEMATOCRIT 39.8 % (36.0-47.0); HEMOGLOBIN 12.5 g/dl (12.0-15.5); MEAN CORPUSCULAR HEMOGLOBIN 32.5 pg (27.0-33.0); MEAN CORPUSCULAR HGB CONC 31.4 g/dl (32.0-36.5); MEAN CORPUSCULAR VOLUME 103.4 fl (80.0-96.0); PLATELET COUNT, AUTOMATED 212 10^3/uL (150-450); RED BLOOD COUNT 3.85 10^6/uL (4.00-5.40)
[2020-07-20 05:56] LABS: BLOOD UREA NITROGEN 13 MG/DL (7-18); CALCIUM LEVEL 8.9 MG/DL (8.5-10.1); CARBON DIOXIDE LEVEL 27 MEQ/L (21-32); CHLORIDE LEVEL 104 MEQ/L (98-107); CREATININE FOR GFR 0.59 MG/DL (0.55-1.30); GLOMERULAR FILTRATION RATE > 60.0 (>51); GLUCOSE, FASTING 307 MG/DL (70-100); POTASSIUM SERUM 4.2 MEQ/L (3.5-5.1); SODIUM LEVEL 136 MEQ/L (136-145)
--- NOTE | 2020-07-20 07:06 | CR ---
CONSULTATION DATE: 07/19/2020 REQUESTING PHYSICIAN: Dr. Jhaveri. REASON FOR CONSULTATION: Abdominal pain and history of multiple prior surgeries. HISTORY OF PRESENT ILLNESS: The patient is a 59-year-old woman with a long and complicated surgical history that goes back 30 years or more. She has had innumerable abdominal operations. She has had as I recall several bowel resections. She ended up with a permanent ostomy apparently because of poor bowel function. She has had multiple small hernias repaired by Dr. Campuzano over the last 10 years or more often with mesh. She has a history of frequent admissions to the hospital with reports of decreased ostomy output with severe abdominal pain which have invariably resolved ultimately with nonoperative care. She presented today to the Emergency Department reporting that her ostomy output diminished and she just has severe pain across her mid abdomen. ALLERGIES: Multiple and are as listed in the medical record. MEDICATIONS AT THE TIME OF ADMISSION: Multiple and as listed in her admitting pharmacy review. MEDICAL HISTORY: Significant for diabetes mellitus. She has chronic pain issues. The patient has a history of headaches and migraines. She has a history of hyperlipidemia. She has had a deep vein thrombosis sometime ago. She reports a history of asthma. She has had prior renal stones and urinary tract infections. She has a history of depression. PAST SURGICAL HISTORY: Prior dorsal column stimulator implant. She has had multiple abdominal wall hernia repairs. She has undergone a subtotal colectomy back in 2005 and ileostomy in about 2012. She has had parastomal hernia repairs. She has had bilateral breast biopsies. She had a total hysterectomy many years ago. She has undergone several orthopedic surgeries on her knees. She has had her gallbladder out. SOCIAL HISTORY: Patient is a nonsmoker and denies any alcohol intake. FAMILY HISTORY: Noncontributory. REVIEW OF SYSTEMS: Most significant for chronic abdominal pain and chronic bowel issues often with alternating episodes of reported poor ostomy function and subsequent use of laxatives leading to loose stools. She has some significant anxiety associated with her bowels. PHYSICAL EXAMINATION: Physical exam reveals a pleasant tired appearing woman who appears much older than her stated age of 59 years. She is alert and pleasant, and cooperative with the exam. Skin is somewhat pale. Skin is warm and dry. Sclera are anicteric. Neck is supple without mass. Heart exam reveals a regular rhythm of about 100. Lungs are clear to auscultation bilaterally. The abdomen is somewhat rounded. She has an ostomy in the left mid abdomen. The abdominal wall is obviously thinned significantly overall. She has multiple scars across the abdomen. There is no definite hernia identified. She does have some bowel sounds present to auscultation. She has fairly diffuse tenderness across the mid abdomen to light palpation. The abdomen is protuberant and full. Extremities are without definite edema. She has palpable radial and pedal pulses. LABORATORY DATA: Laboratory studies in the Emergency Department show a white count of 6, hemoglobin of 12, hematocrit 38 and a platelet count of 200,000. Her differential count showed 69% neutrophils, 21% lymphocytes and 9% monocytes. Coag's showed a PT of 12.5, INR of 0.91 and a PTT of 51.9. Chemistry profile showed a sodium of 135, potassium 3.9, chloride 102, CO2 25, BUN 11, creatinine 0.3 and a glucose of 171. Her liver function tests were normal with the exception of a minimal elevation of the AST to 42. Her troponin is less than 0.02, total protein at 7.8 with an albumin of 3.2 and her amylase and lipase are normal. Her lactic acid on presentation was 2.4 and was 2.1 on repeat approximately 5 hours later. Urinalysis was positive for nitrate and showed 2+ leukocyte esterase with 85 white cells and 2 red cells per high powered field. A CT scan of the abdomen and pelvis was obtained. I reviewed the images personally. She has undergone prior colectomy. There appears to be a short rectal stump still in place. It is unclear if there is any colon left. She does have a large amount of small bowel present. There are areas where this appears to be matted to the anterior abdominal wall near the midline. There is no obvious obstruction. The small bowel is not distended. There is no evidence of free air or free fluid. The gallbladder is surgically absent. There are innumerable metal clips within the abdominal wall presumably at the site of prior hernias. It was noted by the radiologist that there appeared to be no acute change from a CT scan of two months ago. IMPRESSION: 1. Abdominal pain without evidence of definite obstruction or perforation. 2. History of innumerable abdominal surgical procedures. 3. Chronic pain syndrome. 4. Diabetes mellitus. 5. Hypertension. 6. Hyperlipidemia. 7. Depression. RECOMMENDATIONS: At this point there is no indication for any urgent surgical intervention. The patient has a history of recurring episodes of abdominal pain marked by fairly diffuse severe pain with decreased ostomy output. These have resolved with nonoperative management. There is no evidence of an acute surgical process and so I would recommend conservative management. She should remain NPO and receive pain medicines as necessary. An NG-tube would not be inappropriate but may not be necessary. I will be happy to check in on the patient periodically to see if she improves as anticipated. MARLYN
[2020-07-20] MEDS ORDERED: LEVEMIR (INSULIN DETEMIR) 1 UNITS/0.01ML SC SCH (09:00)
[2020-07-20] MEDS: VITAMIN D 1,000 INTERNATIONAL UNITS TABLET PO SCH (09:16)
[2020-07-20] MEDS: METOCLOPRAMIDE 10 MG TAB PO SCH ×3 (09:17→16:45)
[2020-07-20] MEDS: DICYCLOMINE 10 MG CAP PO SCH ×4 (09:17→21:54)
[2020-07-20] MEDS: HumaLOG INSULIN (NovoLOG) PER UNIT SC SCH ×3 (09:18→16:53)
[2020-07-20] MEDS: SIMETHICONE 80MG CHEW TAB PO SCH ×3 (09:18→16:45)
[2020-07-20] MEDS: OMEPRAZOLE 20 MG CAP PO SCH (09:22)
--- NOTE | 2020-07-20 13:15 | IPNPDOC ---
Subjective Date Seen The patient was seen on 07/20/20. Subjective Chief Complaint/HPI Mrs. Olson is a 59 year old female with multiple abdominal surgeries who presents with intractable abdominal pain. This morning, she continues to complain of pain. Denies chest pain, but cannot take a deep breath due to the pain. Objective Physical Examination General Exam: Positive: Alert, Cooperative, Mild Distress Eye Exam: Positive: EOMI; Negative: Sclera icteric ENT Exam: Positive: Atraumatic Neck Exam: Positive: Supple Chest Exam: Positive: Clear to auscultation; Negative: Rales, Rhonchi, Wheezing Heart Exam: Positive: Tachycardic, Regular Rhythm Abdomen Exam: Positive: Normal bowel sounds Extremity Exam: Positive: Edema (bilateral pitting) Neuro Exam: Positive: Normal Speech, Cranial Nerves 3-12 NL Psych Exam: Positive: Anxiety Assessment /Plan Assessment Mrs. Olson is a 59 year old female with multiple abdominal surgeries who presents with intractable abdominal pain. General surgery, Dr. Ram consulted, recommendations appreciated. Recommending conservative management. NPO with analgesia. 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?: Yes Plan 1. Intractable abdominal pain -Patient has had multiple abdominal surgeries including bowel resection and hernia repair -Patient takes Dilaudid at home -NPO -Continue Dicyclomine, mesalamine, and metoclopramide -Continue Carafate, simethicone. Added on omeprazole -Analgesia with Dilaudid protocol -General surgery consulted, recommendations appreciated 2. Diabetes mellitus -Insulin sliding scale -Levemir 35units qD 3. DVT ppx -SCD and TEDs Disposition: Pending improvement in pain VS, I&O, 24H, Fishbone Vital Signs/I&O Vital Signs Date Time Temp Pulse Resp B/P (MAP) Pulse Ox O2 Delivery O2 Flow Rate FiO2 07/20/20 11:01 16 07/20/20 08:00 97.8 104 114/61 (78) 96 Nasal Cannula 2.0 I&O- Last 24 Hours up to 6 AM 07/20/20 06:00 Intake Total 1175 ml Output Total 775 ml Balance 400 ml Laboratory Data 24H LABS Laboratory Tests 2 07/19/20 13:52: Immature Granulocyte % (Auto) 0.5, Neutrophils (%) (Auto) 68.6H, Lymphocytes (%) (Auto) 20.7L, Monocytes (%) (Auto) 8.8H, Eosinophils (%) (Auto) 0.8, Basophils (%) (Auto) 0.6, Neutrophils # (Auto) 4.3, Lymphocytes # (Auto) 1.3L, Monocytes # (Auto) 0.6, Eosinophils # (Auto) 0.1, Basophils # (Auto) 0.0, Nucleated Red Blood Cells % (auto) 0.0, Prothrombin Time 12.5, Prothromb Time International Ratio 0.91, Activated Partial Thromboplast Time 51.9H, Lactic Acid Level 2.4*H, Total Bilirubin 0.2, Direct Bilirubin < 0.1, Aspartate Amino Transf (AST/SGOT) 42H, Alanine Aminotransferase (ALT/SGPT) 41, Alkaline Phosphatase 108, Total Creatine Kinase 50, Creatine Kinase MB 1.2, Creatine Kinase MB Relative Index 2.40, Troponin I < 0.02, Total Protein 7.8, Albumin 3.2, Albumin/Globulin Ratio 0.7L, Amylase Level 27, Lipase 95 07/19/20 14:30: POC Glucose (Misc Panel) 171H, POC Sodium (Misc Panel) 135L, POC Potassium (Misc Panel) 3.9, POC Chloride (Misc Panel) 102, POC Total CO2 (Misc Panel) 25.0, POC Blood Urea Nitrogen (Misc Panel 11, POC Ionized Calcium (Misc Panel) 4.9, POC Creatinine (Misc Panel) 0.3L, POC Hematocrit (Misc Panel) 37.0L 07/19/20 17:00: Urine Color YELLOW, Urine Appearance CLOUDYH, Urine pH 5.0, Urine Specific [place] 1.021, Urine Protein 1+H, Urine Glucose (UA) 2+H, Urine Ketones TRACEH, Urine Blood NEGATIVE, Urine Nitrite POSITIVEH, Urine Bilirubin NEGATIVE, Urine Urobilinogen 0.2, Urine Leukocyte Esterase 2+H, Urine WBC (Auto) 85H, Urine RBC (Auto) 2, Urine Hyaline Casts (Auto) 0, Urine Bacteria (Auto) 2+H, Urine Squamous Epithelial Cells 9, Urine Mucus (Auto) SMALL, Urine Sperm (Auto) 07/19/20 18:36: Bedside Glucose (Misc Panel) 128H 07/19/20 18:59: Lactic Acid Followup at 4 Hours 2.1*H 07/19/20 19:50: Bedside Glucose (Misc Panel) 157H 07/20/20 00:13: Bedside Glucose (Misc Panel) 248H 07/20/20 00:36: Bedside Glucose (Misc Panel) 252H 07/20/20 04:45: Nucleated Red Blood Cells % (auto) 0.0, Anion Gap 5L, Glomerular Filtration Rate > 60.0, Calcium Level 8.9 07/20/20 09:08: Bedside Glucose (Misc Panel) 323H 07/20/20 12:05: Bedside Glucose (Misc Panel) 257H CBC/BMP Laboratory Tests 07/19/20 13:52 07/20/20 04:45 Microbiology Microbiology 07/19/20 Blood Culture, Received Pending 07/19/20 Urine Culture, Received Pending 07/19/20 Respiratory Virus Panel (PCR) (JOSY) - Final, Complete 07/19/20 Blood Culture, Received Pending GASTON CABRERA DO Jul 20, 2020 13:14
[2020-07-20] MEDS ORDERED: DEXTROSE 50% 50 ML SYRINGE IV PRN (16:30)
[2020-07-20] MEDS ORDERED: GLUCOSE 4GM CHEW TABLET PO PRN (16:30)
[2020-07-20] MEDS ORDERED: GLUCAGON INJ 1MG VIAL SC PRN (16:30)
[2020-07-21] VITALS (23 sets, daily range): BP systolic 110–126; BP diastolic 56–62; O2SAT 90–98
[2020-07-21] MEDS: HumaLOG INSULIN (NovoLOG) PER UNIT SC SCH ×4 (00:25→18:16)
[2020-07-21] MEDS ORDERED: diphenhydrAMINE 25MG CAP PO ONE ×2 (00:55→08:40)
[2020-07-21] MEDS: HYDROmorphone HCL 2 MG/ML 1ML VIAL (J1170) IV PRN ×6 (02:24→20:33)
[2020-07-21 04:48] LABS: HEMATOCRIT 34.7 % (36.0-47.0); HEMOGLOBIN 10.8 g/dl (12.0-15.5); MEAN CORPUSCULAR HEMOGLOBIN 32.7 pg (27.0-33.0); MEAN CORPUSCULAR HGB CONC 31.1 g/dl (32.0-36.5); MEAN CORPUSCULAR VOLUME 105.2 fl (80.0-96.0); PLATELET COUNT, AUTOMATED 162 10^3/uL (150-450); WHITE BLOOD COUNT 5.1 10^3/uL (4.0-10.0)
[2020-07-21 05:04] LABS: BLOOD UREA NITROGEN 11 MG/DL (7-18); CALCIUM LEVEL 8.6 MG/DL (8.5-10.1); CARBON DIOXIDE LEVEL 28 MEQ/L (21-32); CHLORIDE LEVEL 109 MEQ/L (98-107); CREATININE FOR GFR 0.42 MG/DL (0.55-1.30); GLOMERULAR FILTRATION RATE > 60.0 (>51); GLUCOSE, FASTING 183 MG/DL (70-100); POTASSIUM SERUM 3.4 MEQ/L (3.5-5.1); SODIUM LEVEL 139 MEQ/L (136-145)
[2020-07-21] MEDS: D5W/0.45% SODIUM CHLORIDE 1,000 ML IV SCH ×2 (07:09→09:01)
[2020-07-21] MEDS ORDERED: POTASSIUM CHLORIDE 10 MEQ SR TABLET PO ONE ×2 (07:10→21:00)
[2020-07-21] MEDS: OMEPRAZOLE 20 MG CAP PO SCH (08:33)
[2020-07-21] MEDS: AMITRIPTYLINE 50 MG TAB PO SCH ×2 (08:33→20:31)
[2020-07-21] MEDS: DICYCLOMINE 10 MG CAP PO SCH ×4 (08:33→20:31)
[2020-07-21] MEDS: VITAMIN D 1,000 INTERNATIONAL UNITS TABLET PO SCH (08:34)
[2020-07-21] MEDS: SENOKOT S TAB PO SCH ×2 (08:34→20:30)
[2020-07-21] MEDS: SIMETHICONE 80MG CHEW TAB PO SCH ×3 (08:34→18:16)
[2020-07-21] MEDS: SUCRALFATE 1 GM TAB PO SCH ×2 (08:34→20:31)
[2020-07-21] MEDS: LACTULOSE 20 GM/30 ML SYRUP UD PO SCH ×3 (08:35→20:31)
[2020-07-21] MEDS: ONDANSETRON 4MG/2ML VIAL IV SCH ×2 (08:35→20:31)
[2020-07-21] MEDS: NYSTATIN 100,000 UNITS/GM TOPICAL PWD 15 GM TOP SCH ×2 (08:35→20:34)
[2020-07-21] MEDS: MUPIROCIN 2% OINT 22 GM TUBE TOP SCH ×3 (08:35→20:34)
[2020-07-21] MEDS: METOCLOPRAMIDE 10 MG TAB PO SCH ×3 (08:48→18:15)
[2020-07-21] MEDS ORDERED: LEVEMIR (INSULIN DETEMIR) 1 UNITS/0.01ML SC SCH (09:00)
[2020-07-21] MEDS: LEVEMIR (INSULIN DETEMIR) 1 UNITS/0.01ML SC SCH (09:01)
[2020-07-21 09:36] LABS: MAGNESIUM LEVEL 1.8 MG/DL (1.8-2.4)
[2020-07-21] MEDS ORDERED: SLF 3 ML SYR IV PRN (11:20)
[2020-07-21] MEDS: SLF 3 ML SYR IV SCH ×2 (14:50→22:12)
[2020-07-21] MEDS: ALBUTEROL SULFATE 2.5 MG/0.5 ML INH NEB SOLN INH PRN (16:57)
[2020-07-21] MEDS: guaiFENesin DM *SUGAR FREE* 5ML**DIABETIC TUSSIN DM PO PRN (18:51)
[2020-07-21] MEDS: MESALAMINE 1,000 MG SUPP PR SCH (20:31)
--- NOTE | 2020-07-21 20:42 | IPNPDOC ---
Subjective Date Seen The patient was seen on 07/21/20. Subjective Chief Complaint/HPI Mrs. Olson is a 59 year old female with multiple abdominal surgeries who presents with intractable abdominal pain. Today, she still has abdominal pain. Denies chest pain. Has some dyspnea due to the abdominal pain. UA returned positive for Klebsiella. Will start Ceftriaxone today. Objective Physical Examination General Exam: Positive: Alert, Cooperative, Mild Distress Eye Exam: Positive: EOMI; Negative: Sclera icteric ENT Exam: Positive: Atraumatic Neck Exam: Positive: Supple Chest Exam: Positive: Clear to auscultation; Negative: Rales, Rhonchi, Wheezing Heart Exam: Positive: Tachycardic, Regular Rhythm Abdomen Exam: Positive: Normal bowel sounds Extremity Exam: Positive: Edema (bilateral pitting) Neuro Exam: Positive: Normal Speech, Cranial Nerves 3-12 NL Psych Exam: Positive: Anxiety Assessment /Plan Assessment Mrs. Olson is a 59 year old female with multiple abdominal surgeries who presents with intractable abdominal pain. General surgery, Dr. Ram consulted, recommendations appreciated. Recommending conservative management. NPO with analgesia. Patient has Klebsiella UTI. Patient will be started on ceftriaxone 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?: Yes Plan 1. Intractable abdominal pain -Patient has had multiple abdominal surgeries including bowel resection and hernia repair -Patient takes Dilaudid at home -NPO -Continue Dicyclomine, mesalamine, and metoclopramide -Continue Carafate, simethicone. Added on omeprazole -Analgesia with Dilaudid protocol -General surgery consulted, recommendations appreciated 2. Klebsiella UTI -Ceftriaxone day 1 3. Diabetes mellitus -Insulin sliding scale -Levemir 20units qD 4. DVT ppx -SCD and TEDs Disposition: Pending improvement in pain VS, I&O, 24H, Fishbone Vital Signs/I&O Vital Signs Date Time Temp Pulse Resp B/P (MAP) Pulse Ox O2 Delivery O2 Flow Rate FiO2 07/21/20 20:33 16 Nasal Cannula 2.0 07/21/20 16:00 99.1 92 120/60 (80) 94 I&O- Last 24 Hours up to 6 AM 07/21/20 05:59 Intake Total 1400 ml Output Total 2150 ml Balance -750 ml Laboratory Data 24H LABS Laboratory Tests 2 07/20/20 23:36: Bedside Glucose (Misc Panel) 181H 07/21/20 04:30: Nucleated Red Blood Cells % (auto) 0.0, Anion Gap 2L, Glomerular Filtration Rate > 60.0, Calcium Level 8.6, Magnesium Level 1.8 07/21/20 11:59: Bedside Glucose (Misc Panel) 251H 07/21/20 16:49: Bedside Glucose (Misc Panel) 134H CBC/BMP Laboratory Tests 07/21/20 04:30 Microbiology Microbiology 07/19/20 Blood Culture - Preliminary, Resulted No Growth after 48 hours. All Specime... 07/19/20 Urine Culture - Final, Complete Klebsiella Pneumoniae 07/19/20 Respiratory Virus Panel (PCR) ([facility]) - Final, Complete 07/19/20 Blood Culture - Preliminary, Resulted No Growth after 48 hours. All Specime... GASTON CABRERA DO Jul 21, 2020 20:42
[2020-07-21] MEDS: cefTRIAXone SOD 1 GM in D5W MINI-BAG PLUS 50 ML IV SCH (22:12)
[2020-07-22] VITALS (20 sets, daily range): BP systolic 99–140; BP diastolic 52–75; O2SAT 90–99
[2020-07-22] MEDS: HYDROmorphone HCL 2 MG/ML 1ML VIAL (J1170) IV PRN ×6 (02:10→21:09)
[2020-07-22] MEDS: D5W/0.45% SODIUM CHLORIDE 1,000 ML IV SCH ×3 (03:08→17:28)
[2020-07-22] MEDS: SLF 3 ML SYR IV SCH ×3 (06:01→21:08)
[2020-07-22] MEDS: HumaLOG INSULIN (NovoLOG) PER UNIT SC SCH ×4 (06:30→17:46)
[2020-07-22 06:38] LABS: HEMATOCRIT 32.7 % (36.0-47.0); HEMOGLOBIN 10.4 g/dl (12.0-15.5); MEAN CORPUSCULAR HEMOGLOBIN 33.5 pg (27.0-33.0); MEAN CORPUSCULAR HGB CONC 31.8 g/dl (32.0-36.5); MEAN CORPUSCULAR VOLUME 105.5 fl (80.0-96.0); PLATELET COUNT, AUTOMATED 159 10^3/uL (150-450); WHITE BLOOD COUNT 5.7 10^3/uL (4.0-10.0)
[2020-07-22 07:01] LABS: BLOOD UREA NITROGEN 7 MG/DL (7-18); CALCIUM LEVEL 8.2 MG/DL (8.5-10.1); CARBON DIOXIDE LEVEL 26 MEQ/L (21-32); CHLORIDE LEVEL 108 MEQ/L (98-107); GLOMERULAR FILTRATION RATE > 60.0 (>51); GLUCOSE, FASTING 236 MG/DL (70-100); POTASSIUM SERUM 3.8 MEQ/L (3.5-5.1); SODIUM LEVEL 137 MEQ/L (136-145)
[2020-07-22] MEDS: OMEPRAZOLE 20 MG CAP PO SCH (08:25)
[2020-07-22] MEDS: METOCLOPRAMIDE 10 MG TAB PO SCH ×3 (08:25→17:48)
[2020-07-22] MEDS: VITAMIN D 1,000 INTERNATIONAL UNITS TABLET PO SCH (08:25)
[2020-07-22] MEDS: SIMETHICONE 80MG CHEW TAB PO SCH ×3 (08:25→17:45)
[2020-07-22] MEDS: DICYCLOMINE 10 MG CAP PO SCH ×4 (08:25→21:07)
[2020-07-22] MEDS: AMITRIPTYLINE 50 MG TAB PO SCH ×2 (08:25→21:07)
[2020-07-22] MEDS: SENOKOT S TAB PO SCH ×2 (08:25→21:07)
[2020-07-22] MEDS: SUCRALFATE 1 GM TAB PO SCH ×2 (08:25→21:07)
[2020-07-22] MEDS: guaiFENesin DM *SUGAR FREE* 5ML**DIABETIC TUSSIN DM PO PRN (08:25)
[2020-07-22] MEDS: NYSTATIN 100,000 UNITS/GM TOPICAL PWD 15 GM TOP SCH ×2 (08:26→21:07)
[2020-07-22] MEDS: MUPIROCIN 2% OINT 22 GM TUBE TOP SCH ×3 (08:26→21:00)
[2020-07-22] MEDS: LEVEMIR (INSULIN DETEMIR) 1 UNITS/0.01ML SC SCH (08:26)
[2020-07-22] MEDS: ONDANSETRON 4MG/2ML VIAL IV SCH ×2 (08:26→21:06)
[2020-07-22] MEDS: LACTULOSE 20 GM/30 ML SYRUP UD PO SCH ×3 (08:57→21:07)
[2020-07-22] MEDS: ALBUTEROL SULFATE 2.5 MG/0.5 ML INH NEB SOLN INH PRN (09:54)
--- NOTE | 2020-07-22 12:38 | IPNPDOC ---
Subjective Date Seen The patient was seen on 07/22/20. Subjective Chief Complaint/HPI Mrs. Olson is a 59 year old female with multiple abdominal surgeries who presents with intractable abdominal pain. Today, she denies any chest pain or dyspnea. Still reports having abdominal pain requiring IV Dilaudid for control. Objective Physical Examination General Exam: Positive: Alert, Cooperative, Mild Distress Eye Exam: Positive: EOMI; Negative: Sclera icteric ENT Exam: Positive: Atraumatic Neck Exam: Positive: Supple Chest Exam: Positive: Clear to auscultation; Negative: Rales, Rhonchi, Wheezing Heart Exam: Positive: Tachycardic, Regular Rhythm Abdomen Exam: Positive: Normal bowel sounds Extremity Exam: Positive: Edema (bilateral pitting) Neuro Exam: Positive: Normal Speech, Cranial Nerves 3-12 NL Psych Exam: Positive: Anxiety Assessment /Plan Assessment Mrs. Olson is a 59 year old female with multiple abdominal surgeries who presents with intractable abdominal pain. General surgery, Dr. Ram consulted, recommendations appreciated. Recommending conservative management. NPO with analgesia. Patient has Klebsiella UTI. Patient will be started on ceftriaxone 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?: Yes Plan 1. Intractable abdominal pain -Patient has had multiple abdominal surgeries including bowel resection and hernia repair -Patient takes Dilaudid at home -NPO -Continue Dicyclomine, mesalamine, and metoclopramide -Continue Carafate, simethicone. Added on omeprazole -Analgesia with Dilaudid protocol -General surgery consulted, recommendations appreciated 2. Klebsiella UTI -Ceftriaxone day 2 3. Diabetes mellitus -Insulin sliding scale -Levemir 20units qD 4. DVT ppx -SCD and TEDs Disposition: Pending improvement in pain VS, I&O, 24H, Fishbone Vital Signs/I&O Vital Signs Date Time Temp Pulse Resp B/P (MAP) Pulse Ox O2 Delivery O2 Flow Rate FiO2 07/22/20 12:00 2.0 07/22/20 11:00 96 Nasal Cannula 07/22/20 10:11 17 07/22/20 08:00 97.2 83 103/53 (70) I&O- Last 24 Hours up to 6 AM 07/22/20 06:00 Intake Total 850 ml Output Total 2150 ml Balance -1300 ml Laboratory Data 24H LABS Laboratory Tests 2 07/21/20 16:49: Bedside Glucose (Misc Panel) 134H 4/10/21 00:16: Bedside Glucose (Misc Panel) 221H 07/22/20 06:12: Bedside Glucose (Misc Panel) 248H 07/22/20 06:14: Nucleated Red Blood Cells % (auto) 0.0, Anion Gap 3L, Glomerular Filtration Rate > 60.0, Calcium Level 8.2L 07/22/20 11:56: Bedside Glucose (Misc Panel) 198H CBC/BMP Laboratory Tests 07/22/20 06:14 Microbiology Microbiology 07/19/20 Blood Culture - Preliminary, Resulted No Growth after 48 hours. All Specime... 07/19/20 Urine Culture - Final, Complete Klebsiella Pneumoniae 07/19/20 Respiratory Virus Panel (PCR) ([facility]OS[facility]) - Final, Complete 07/19/20 Blood Culture - Preliminary, Resulted No Growth after 48 hours. All Specime... GASTON CABRERA DO Jul 22, 2020 12:38
[2020-07-22] MEDS: MESALAMINE 1,000 MG SUPP PR SCH (21:07)
[2020-07-22] MEDS: cefTRIAXone SOD 1 GM in D5W MINI-BAG PLUS 50 ML IV SCH (21:08)
[2020-07-23] VITALS (13 sets, daily range): BP systolic 107–129; BP diastolic 56–88; O2SAT 96–97
[2020-07-23] MEDS: D5W/0.45% SODIUM CHLORIDE 1,000 ML IV SCH ×2 (00:21→12:45)
[2020-07-23] MEDS: HYDROmorphone HCL 2 MG/ML 1ML VIAL (J1170) IV PRN ×6 (03:32→21:59)
[2020-07-23] MEDS: SLF 3 ML SYR IV SCH ×3 (06:31→22:00)
[2020-07-23] MEDS: HumaLOG INSULIN (NovoLOG) PER UNIT SC SCH ×5 (06:50→23:34)
[2020-07-23 07:08] LABS: HEMATOCRIT 32.2 % (36.0-47.0); HEMOGLOBIN 10.3 g/dl (12.0-15.5); MEAN CORPUSCULAR HEMOGLOBIN 33.4 pg (27.0-33.0); MEAN CORPUSCULAR VOLUME 104.5 fl (80.0-96.0); PLATELET COUNT, AUTOMATED 162 10^3/uL (150-450); RED BLOOD COUNT 3.08 10^6/uL (4.00-5.40); WHITE BLOOD COUNT 4.8 10^3/uL (4.0-10.0)
[2020-07-23 07:45] LABS: BLOOD UREA NITROGEN 3 MG/DL (7-18); CALCIUM LEVEL 8.2 MG/DL (8.5-10.1); CARBON DIOXIDE LEVEL 26 MEQ/L (21-32); CHLORIDE LEVEL 108 MEQ/L (98-107); CREATININE FOR GFR 0.35 MG/DL (0.55-1.30); GLOMERULAR FILTRATION RATE > 60.0 (>51); GLUCOSE, FASTING 227 MG/DL (70-100); POTASSIUM SERUM 3.3 MEQ/L (3.5-5.1); SODIUM LEVEL 139 MEQ/L (136-145)
[2020-07-23] MEDS: LACTULOSE 20 GM/30 ML SYRUP UD PO SCH ×3 (08:55→20:25)
[2020-07-23] MEDS: SUCRALFATE 1 GM TAB PO SCH ×2 (08:55→20:26)
[2020-07-23] MEDS: AMITRIPTYLINE 50 MG TAB PO SCH ×2 (08:55→20:27)
[2020-07-23] MEDS: OMEPRAZOLE 20 MG CAP PO SCH (08:55)
[2020-07-23] MEDS: ONDANSETRON 4MG/2ML VIAL IV SCH ×2 (08:55→20:26)
[2020-07-23] MEDS: SENOKOT S TAB PO SCH ×2 (08:55→20:26)
[2020-07-23] MEDS: LEVEMIR (INSULIN DETEMIR) 1 UNITS/0.01ML SC SCH (08:55)
[2020-07-23] MEDS: MUPIROCIN 2% OINT 22 GM TUBE TOP SCH ×3 (08:56→20:28)
[2020-07-23] MEDS: SIMETHICONE 80MG CHEW TAB PO SCH ×3 (08:56→18:27)
[2020-07-23] MEDS: DICYCLOMINE 10 MG CAP PO SCH ×4 (08:56→20:26)
[2020-07-23] MEDS: NYSTATIN 100,000 UNITS/GM TOPICAL PWD 15 GM TOP SCH ×2 (08:56→20:28)
[2020-07-23] MEDS: VITAMIN D 1,000 INTERNATIONAL UNITS TABLET PO SCH (08:56)
[2020-07-23] MEDS: METOCLOPRAMIDE 10 MG TAB PO SCH ×3 (09:25→18:26)
[2020-07-23] MEDS ORDERED: POTASSIUM CHLORIDE 10 MEQ SR TABLET PO ONE (10:00)
[2020-07-23] MEDS: guaiFENesin DM *SUGAR FREE* 5ML**DIABETIC TUSSIN DM PO PRN (12:54)
--- NOTE | 2020-07-23 20:00 | IPNPDOC ---
Subjective Date Seen The patient was seen on 07/23/20. Subjective Chief Complaint/HPI Mrs. Olson is a 59 year old female with multiple abdominal surgeries who presents with intractable abdominal pain. Still has abdominal pain, but feels like she can try a diet. Started on clear liquids. She did well and was advanced to full liquids. Objective Physical Examination General Exam: Positive: Alert, Cooperative, Mild Distress Eye Exam: Positive: EOMI; Negative: Sclera icteric ENT Exam: Positive: Atraumatic Neck Exam: Positive: Supple Chest Exam: Positive: Clear to auscultation; Negative: Rales, Rhonchi, Wheezing Heart Exam: Positive: Tachycardic, Regular Rhythm Abdomen Exam: Positive: Normal bowel sounds Extremity Exam: Positive: Edema (bilateral pitting) Neuro Exam: Positive: Normal Speech, Cranial Nerves 3-12 NL Psych Exam: Positive: Anxiety Assessment /Plan Assessment Mrs. Olson is a 59 year old female with multiple abdominal surgeries who presents with intractable abdominal pain. General surgery, Dr. Ram consulted, recommendations appreciated. Recommending conservative management. Continue with analgesia. Advanced diet from NPO to clears. Did well with clears and advance to full liquids. Continue advancing diet. 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?: Yes Plan 1. Intractable abdominal pain -Patient has had multiple abdominal surgeries including bowel resection and h ernia repair -Patient takes Dilaudid at home -Continue Dicyclomine, mesalamine, and metoclopramide -Continue Carafate, simethicone. Added on omeprazole -Analgesia with Dilaudid protocol -General surgery consulted, recommendations appreciated -Did well with clears. Continue advancing diet as tolerated. 2. Klebsiella UTI -Ceftriaxone day 3 3. Diabetes mellitus -Insulin sliding scale -Levemir 20units qD 4. DVT ppx -SCD and TEDs Disposition: If can tolerate solid diet, can switch back to PO Dilaudid. VS, I&O, 24H, Fishbone Vital Signs/I&O Vital Signs Date Time Temp Pulse Resp B/P (MAP) Pulse Ox O2 Delivery O2 Flow Rate FiO2 07/23/20 18:36 17 07/23/20 16:00 98.0 90 129/59 (82) 91 Nasal Cannula 2.0 I&O- Last 24 Hours up to 6 AM 07/23/20 06:00 Intake Total 900 ml Output Total 1500 ml Balance -600 ml Laboratory Data 24H LABS Laboratory Tests 2 07/23/20 00:22: Bedside Glucose (Misc Panel) 194H 07/23/20 06:22: Bedside Glucose (Misc Panel) 227H 07/23/20 06:48: Nucleated Red Blood Cells % (auto) 0.0, Anion Gap 5L, Glomerular Filtration Rate > 60.0, Calcium Level 8.2L 07/23/20 12:29: Bedside Glucose (Misc Panel) 208H 07/23/20 17:27: Bedside Glucose (Misc Panel) 147H CBC/BMP Laboratory Tests 07/23/20 06:48 Microbiology Microbiology 07/19/20 Blood Culture - Preliminary, Resulted No Growth after 72 hours. All specime... 07/19/20 Urine Culture - Final, Complete Klebsiella Pneumoniae 07/19/20 Respiratory Virus Panel (PCR) ([facility]) - Final, Complete 07/19/20 Blood Culture - Preliminary, Resulted No Growth after 72 hours. All specime... GASTON CABRERA DO Jul 23, 2020 20:00
[2020-07-23] MEDS: cefTRIAXone SOD 1 GM in D5W MINI-BAG PLUS 50 ML IV SCH (20:27)
[2020-07-23] MEDS: MESALAMINE 1,000 MG SUPP PR SCH (20:27)
[2020-07-24] MEDS: guaiFENesin DM *SUGAR FREE* 5ML**DIABETIC TUSSIN DM PO PRN ×3 (02:06→23:46)
[2020-07-24 05:00] VITALS: BP 136/64
[2020-07-24] MEDS: HumaLOG INSULIN (NovoLOG) PER UNIT SC SCH ×3 (05:10→17:34)
[2020-07-24] MEDS: HYDROmorphone HCL 2 MG/ML 1ML VIAL (J1170) IV PRN ×3 (05:10→15:50)
[2020-07-24] MEDS: SLF 3 ML SYR IV SCH ×3 (05:33→20:17)
[2020-07-24 05:39] LABS: HEMATOCRIT 33.4 % (36.0-47.0); HEMOGLOBIN 10.6 g/dl (12.0-15.5); MEAN CORPUSCULAR HEMOGLOBIN 32.6 pg (27.0-33.0); MEAN CORPUSCULAR HGB CONC 31.7 g/dl (32.0-36.5); MEAN CORPUSCULAR VOLUME 102.8 fl (80.0-96.0); PLATELET COUNT, AUTOMATED 183 10^3/uL (150-450); RED BLOOD COUNT 3.25 10^6/uL (4.00-5.40); WHITE BLOOD COUNT 5.9 10^3/uL (4.0-10.0)
[2020-07-24 06:00] LABS: BLOOD UREA NITROGEN 2 MG/DL (7-18); CALCIUM LEVEL 8.4 MG/DL (8.5-10.1); CARBON DIOXIDE LEVEL 28 MEQ/L (21-32); CHLORIDE LEVEL 107 MEQ/L (98-107); CREATININE FOR GFR 0.32 MG/DL (0.55-1.30); GLOMERULAR FILTRATION RATE > 60.0 (>51); GLUCOSE, FASTING 125 MG/DL (70-100); POTASSIUM SERUM 3.3 MEQ/L (3.5-5.1); SODIUM LEVEL 141 MEQ/L (136-145)
[2020-07-24] MEDS ORDERED: POTASSIUM CHLORIDE 10 MEQ SR TABLET PO ONE (07:20)
[2020-07-24] MEDS: METOCLOPRAMIDE 10 MG TAB PO SCH ×3 (07:30→17:32)
[2020-07-24] MEDS: SIMETHICONE 80MG CHEW TAB PO SCH ×3 (07:30→17:32)
[2020-07-24] MEDS: SENOKOT S TAB PO SCH ×2 (07:54→20:15)
[2020-07-24] MEDS: AMITRIPTYLINE 50 MG TAB PO SCH ×2 (07:54→20:15)
[2020-07-24] MEDS: SUCRALFATE 1 GM TAB PO SCH ×2 (07:54→20:15)
[2020-07-24] MEDS: VITAMIN D 1,000 INTERNATIONAL UNITS TABLET PO SCH (07:54)
[2020-07-24] MEDS: LACTULOSE 20 GM/30 ML SYRUP UD PO SCH ×3 (07:54→20:15)
[2020-07-24] MEDS: DICYCLOMINE 10 MG CAP PO SCH ×4 (07:55→20:15)
[2020-07-24] MEDS: LEVEMIR (INSULIN DETEMIR) 1 UNITS/0.01ML SC SCH (07:55)
[2020-07-24] MEDS: ONDANSETRON 4MG/2ML VIAL IV SCH ×2 (07:55→20:21)
[2020-07-24] MEDS: OMEPRAZOLE 20 MG CAP PO SCH (07:55)
[2020-07-24 08:15] VITALS: BP 125/69
[2020-07-24] MEDS: NYSTATIN 100,000 UNITS/GM TOPICAL PWD 15 GM TOP SCH ×3 (09:54→21:00)
--- NOTE | 2020-07-24 09:55 | IPN ---
PROGRESS NOTE DATE: 07/22/2020 The patient was admitted to the hospital on the 19 of July with abdominal distention and pain and decreased output from her ostomy. She has remained hemodynamically stable. She has had some on and off output from her ostomy actually with a pretty fair amount over the last two days. She still complains of significant abdominal pain requiring Dilaudid. Vital signs shows that she has been afebrile over the past 24 hours with a pulse in the 80s and a good blood pressure. Intake and output yesterday showed 550 in with 2050 out. This consisted of 850 ml of urine and 1200 ml of stool from her stoma. The patient is lying quietly on her hospital bed. She appears to be in pretty good spirits. She is alert and oriented. Abdomen is quite rounded and protuberant. She has some gas and some fluid passing from her stoma as I examined her. The stoma itself appears healthy. She has some tenderness across the mid abdomen with some prominence suggestive of an air-filled loop of bowel underlying the thinned abdominal wall. LABORATORY DATA: Laboratory studies include a white count today of 6, hemoglobin 10, hematocrit 33, and a platelet count of 159,000. Chemistry profile shows a sodium of 137, potassium 3.8, chloride 108, CO2 of 26, BUN 7, creatinine 0.4 and a glucose of 236. IMPRESSION: Patient appears to be in better spirits. She actually had pretty good output from her ostomy the last two days with over 1000 ml of fluid measured each day. She complains of significant tenderness and pain in the abdomen. I do not know her story at baseline well enough to know if some of this is not just her baseline status to have persistent tenderness. PLAN: I will continue to check in on the patient periodically during her hospital stay. Whenever her stoma is working well enough that she can tolerate a diet and her pain has diminished she can be discharged home. MARLYN
[2020-07-24] MEDS: MUPIROCIN 2% OINT 22 GM TUBE TOP SCH ×3 (09:56→20:16)
[2020-07-24] MEDS: HYDROmorphone 2 MG TAB PO PRN ×2 (13:04→20:16)
[2020-07-24 14:00] VITALS: BP 135/71
[2020-07-24] MEDS: ALBUTEROL SULFATE 2.5 MG/0.5 ML INH NEB SOLN INH PRN (18:00)
--- NOTE | 2020-07-24 19:39 | IPNPDOC ---
Subjective Date Seen The patient was seen on 07/24/20. Subjective Chief Complaint/HPI Mrs. Olson is a 59 year old female with multiple abdominal surgeries who presents with intractable abdominal pain. This morning, she had vomited during transfer up to [facility]. Otherwise, still has abdominal pain. Objective Physical Examination General Exam: Positive: Alert, Cooperative Eye Exam: Positive: EOMI; Negative: Sclera icteric ENT Exam: Positive: Atraumatic Neck Exam: Positive: Supple Chest Exam: Positive: Clear to auscultation; Negative: Rales, Rhonchi, Wheezing Heart Exam: Positive: Tachycardic, Regular Rhythm Abdomen Exam: Positive: Normal bowel sounds, Tenderness Extremity Exam: Positive: Edema (bilateral pitting) Neuro Exam: Positive: Normal Speech, Cranial Nerves 3-12 NL Psych Exam: Positive: Anxiety Assessment /Plan Assessment Mrs. lOson is a 59 year old female with multiple abdominal surgeries who presents with intractable abdominal pain. General surgery, Dr. Ram consulted, recommendations appreciated. Recommending conservative management. Continue with analgesia. Advanced diet from NPO to clears. Did well with clears and advance to full liquids. Continue full liquids 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?: Yes Plan 1. Intractable abdominal pain -Patient has had multiple abdominal surgeries including bowel resection and hernia repair -Patient takes Dilaudid at home -Continue Dicyclomine, mesalamine, and metoclopramide -Continue Carafate, simethicone. Added on omeprazole -Analgesia with Dilaudid protocol -General surgery consulted, recommendations appreciated -Did well with clears. Continue advancing diet as tolerated. 2. Klebsiella UTI -Ceftriaxone day 3 -Discontinue ceftriaxone today 3. Diabetes mellitus -Insulin sliding scale -Levemir 20units qD 4. DVT ppx -SCD and TEDs Disposition: Pending ability to tolerate food and pain control VS, I&O, 24H, Fishbone Vital Signs/I&O Vital Signs Date Time Temp Pulse Resp B/P (MAP) Pulse Ox O2 Delivery O2 Flow Rate FiO2 07/24/20 16:00 18 Room Air 07/24/20 14:00 98.4 90 135/71 (92) 96 07/23/20 20:00 2.0 I&O- Last 24 Hours up to 6 AM 07/24/20 06:00 Intake Total 2010 ml Output Total 2275 ml Balance -265 ml Laboratory Data 24H LABS Laboratory Tests 2 07/23/20 23:30: Bedside Glucose (Misc Panel) 157H 07/24/20 04:57: Bedside Glucose (Misc Panel) 118H 07/24/20 05:20: Nucleated Red Blood Cells % (auto) 0.0, Anion Gap 6L, Glomerular Filtration Rate > 60.0, Calcium Level 8.4L 07/24/20 11:37: Bedside Glucose (Misc Panel) 273H 07/24/20 16:23: Bedside Glucose (Misc Panel) 284H 07/24/20 19:27: Bedside Glucose (Misc Panel) 255H CBC/BMP Laboratory Tests 07/24/20 05:20 Microbiology Microbiology 07/19/20 Blood Culture - Final, Complete NO GROWTH AFTER 5 DAYS 07/19/20 Urine Culture - Final, Complete Klebsiella Pneumoniae 07/19/20 Respiratory Virus Panel (PCR) ([facility]) - Final, Complete 07/19/20 Blood Culture - Final, Complete NO GROWTH AFTER 5 DAYS GASTON CABRERA DO Jul 24, 2020 19:39
[2020-07-24] MEDS: MESALAMINE 1,000 MG SUPP PR SCH (20:15)
[2020-07-24 22:00] VITALS: BP 125/68
[2020-07-25] MEDS: HumaLOG INSULIN (NovoLOG) PER UNIT SC SCH ×2 (00:06→06:03)
[2020-07-25] MEDS: HYDROmorphone 2 MG TAB PO PRN (04:56)
[2020-07-25] MEDS ORDERED: SODIUM CHLORIDE 0.9% INJ 10 ML SYR IV PRN (05:05)
[2020-07-25 06:00] VITALS: BP 125/66
[2020-07-25] MEDS: guaiFENesin DM *SUGAR FREE* 5ML**DIABETIC TUSSIN DM PO PRN (06:04)
[2020-07-25 06:28] LABS: HEMATOCRIT 33.4 % (36.0-47.0); HEMOGLOBIN 10.6 g/dl (12.0-15.5); MEAN CORPUSCULAR HEMOGLOBIN 32.5 pg (27.0-33.0); MEAN CORPUSCULAR HGB CONC 31.7 g/dl (32.0-36.5); MEAN CORPUSCULAR VOLUME 102.5 fl (80.0-96.0); PLATELET COUNT, AUTOMATED 197 10^3/uL (150-450); RED BLOOD COUNT 3.26 10^6/uL (4.00-5.40); WHITE BLOOD COUNT 4.4 10^3/uL (4.0-10.0)
[2020-07-25 06:56] LABS: BLOOD UREA NITROGEN 3 MG/DL (7-18); CALCIUM LEVEL 9.3 MG/DL (8.5-10.1); CARBON DIOXIDE LEVEL 28 MEQ/L (21-32); CHLORIDE LEVEL 107 MEQ/L (98-107); CREATININE FOR GFR 0.37 MG/DL (0.55-1.30); GLOMERULAR FILTRATION RATE > 60.0 (>51); GLUCOSE, FASTING 188 MG/DL (70-100); POTASSIUM SERUM 3.7 MEQ/L (3.5-5.1); SODIUM LEVEL 141 MEQ/L (136-145)
[2020-07-25] MEDS: SIMETHICONE 80MG CHEW TAB PO SCH (08:00)
[2020-07-25] MEDS: LACTULOSE 20 GM/30 ML SYRUP UD PO SCH (08:36)
[2020-07-25] MEDS: SENOKOT S TAB PO SCH (08:36)
[2020-07-25] MEDS: ONDANSETRON 4MG/2ML VIAL IV SCH (08:36)
[2020-07-25] MEDS: VITAMIN D 1,000 INTERNATIONAL UNITS TABLET PO SCH (08:36)
[2020-07-25] MEDS: LEVEMIR (INSULIN DETEMIR) 1 UNITS/0.01ML SC SCH (08:36)
[2020-07-25] MEDS: METOCLOPRAMIDE 10 MG TAB PO SCH (08:37)
[2020-07-25] MEDS: AMITRIPTYLINE 50 MG TAB PO SCH (08:37)
[2020-07-25] MEDS: SUCRALFATE 1 GM TAB PO SCH (08:37)
[2020-07-25] MEDS: OMEPRAZOLE 20 MG CAP PO SCH (08:37)
[2020-07-25] MEDS: DICYCLOMINE 10 MG CAP PO SCH (08:37)
[2020-07-25] MEDS: MUPIROCIN 2% OINT 22 GM TUBE TOP SCH (08:48)
[2020-07-25] MEDS: NYSTATIN 100,000 UNITS/GM TOPICAL PWD 15 GM TOP SCH (08:49)
[2020-07-25] MEDS ORDERED: SODIUM CHLORIDE 0.9% INJ 10 ML SYR IV SCH (09:00)
[2020-07-25] MEDS ORDERED: DILA2TAB6 PO (09:41)
--- NOTE | 2020-07-25 12:41 | DS.PDOC ---
Discharge Summary General Date of Admission Jul 19, 2020 at 18:25 Date of Discharge 07/25/[address] FREEMAN'S DISCHARGE NOTE JOB #[id number] Vital Signs/I&Os Vital Signs Date Time Temp Pulse Resp B/P (MAP) Pulse Ox O2 Delivery O2 Flow Rate FiO2 07/25/20 06:03 16 07/25/20 06:00 97.8 81 125/66 (85) 96 Room Air 07/23/20 20:00 2.0 I&O- Last 24 Hours up to 6 AM 07/25/20 06:00 Intake Total 1010 ml Output Total 0 ml Balance 1010 ml Laboratory Data Labs 24H Laboratory Tests 2 07/24/20 16:23: Bedside Glucose (Misc Panel) 284H 07/24/20 19:27: Bedside Glucose (Misc Panel) 255H 07/24/20 23:52: Bedside Glucose (Misc Panel) 210H 07/25/20 05:56: Bedside Glucose (Misc Panel) 174H 07/25/20 06:17: Nucleated Red Blood Cells % (auto) 0.0, Anion Gap 6L, Glomerular Filtration Rate > 60.0, Calcium Level 9.3 CBC/BMP Laboratory Tests 07/25/20 06:17 FSBS Laboratory Tests Test 07/24/20 16:23 07/24/20 19:27 07/24/20 23:52 07/25/20 05:56 Range/Units Bedside Glucose (Misc Panel) 284 255 210 174 70-105 MG/DL Microbiology Microbiology 07/19/20 Blood Culture - Final, Complete NO GROWTH AFTER 5 DAYS 07/19/20 Urine Culture - Final, Complete Klebsiella Pneumoniae 07/19/20 Respiratory Virus Panel (PCR) ([facility]OS[facility]) - Final, Complete 07/19/20 Blood Culture - Final, Complete NO GROWTH AFTER 5 DAYS Discharge Medications Scheduled Amitriptyline HCl (Amitriptyline HCl) 50 Mg Tab, 150 MG PO QPM, (Reported) Amitriptyline HCl (Amitriptyline HCl) 50 Mg Tab, 50 MG PO DAILY, (Reported) Cholecalciferol (Vitamin D3) (Vitamin D3) 1,000 Unit Tablet, 1,000 UNITS PO DAILY, (Reported) Dicyclomine HCl (Dicyclomine HCl) 10 Mg Capsule, 10 MG PO QID, (Reported) Estradiol (Estrace) 42.5 Gm Cream.appl, 1 GRAM PV DAILY, (Reported) Insulin Detemir (Levemir Flextouch) 100 Unit/1 Ml Insuln.pen, 35 UNITS SQ DAILY, (Reported) Lactulose (Lactulose) 10 Gm/15 Ml Noelle, 30 ML PO TID, (Reported) Liraglutide (Victoza 2-Eulalio) 0.6 Mg/0.1 Ml Pen.injctr, 1.2 MG SC DAILY, (Reported) Mesalamine (Canasa) 1,000 Mg Supp.rect, 1,000 MG LA QHS, (Reported) Metoclopramide HCl (Reglan) 10 Mg Tablet, 10 MG PO AC, (Reported) Mometasone Furoate (Mometasone Furoate) 17 Gm Captiva.pump, 2 SPR NARES DAILY, (Reported) Mupirocin (Mupirocin) 2 % Oint...g., 1 DOSE TOP TID, (Reported) TO NARES Nystatin (Nystatin Powder) 15 Gm Powder, 1 APLCT TOP BID, (Reported) APPLY AROUND STOMA UNTIL IRRITATION HEALS Ondansetron HCl/Pf (Ondansetron HCl 4 mg/2 ml Vial) 4 Mg/2 Ml Vial, 4 MG IV BID, (Reported) Sennosides/Docusate Sodium (Senna-S Tablet) 1 Each Tablet, 1 TAB PO BID, (Reported) Simethicone (Simethicone) 80 Mg Tab.chew, 160 MG PO WM, (Reported) Sucralfate (Sucralfate) 1 Gm Tablet, 1 GM PO BID, (Reported) Scheduled PRN Albuterol Sulf (Albuterol Sulfate) 2.5 Mg/3 Ml Vial.neb, 2.5 MG INH Q4H PRN for SHORTNESS OF BREATH, (Reported) Ammonium Lactate (Ammonium Lactate) 12% Lotion, 1 APLCT TOP BID PRN for DRY SKIN, (Reported) TO BOTH FEET Hydromorphone HCl (Dilaudid) 2 Mg Tablet, 2 MG PO BIDP PRN for pain, (Reported) Triamcinolone Acet (Triamcinolone Acetonide 0.1% Crm) 80 Gm Cream..g., 1 DOSE TOP BID PRN for RASH, (Reported) Allergies Coded Allergies: Contrast Media (Verified Allergy, Severe, throat swelling, 12/21/19) latex (Verified Allergy, Severe, throat closes, 12/21/19) Penicillins (Verified Allergy, Intermediate, hives, 12/21/19) Sulfa (Sulfonamide Antibiotics) (Verified Allergy, Intermediate, hives, 12/21/19) adhesive tape (Verified Allergy, Intermediate, paper tape - blisters, hives, 12/21/19) azithromycin (Verified Allergy, Intermediate, hives, 12/21/19) ciprofloxacin (Verified Allergy, Intermediate, hives, 12/21/19) colchicine (Verified Allergy, Intermediate, hives, 01/13/20) gatifloxacin (Verified Allergy, Intermediate, hives, 12/21/19) nitrofurantoin (Verified Allergy, Intermediate, hives, 12/21/19) oxycodone (Verified Allergy, Intermediate, hives, 12/21/19) strawberry (Verified Allergy, Intermediate, hives, 12/21/19) tomato (Verified Allergy, Intermediate, hives, 12/21/19) Grape (Verified Allergy, Unknown, GRAPE JUICE, 12/21/19) grape (Verified Allergy, Unknown, 10/20/19) ipratropium (Verified Allergy, Unknown, 10/20/19) iodine (Verified Adverse Reaction, Severe, "out of body experience" eyes roll to back of head, 12/21/19) theophylline (Verified Adverse Reaction, Severe, seizures, 12/21/19) droperidol (Verified Adverse Reaction, Intermediate, "out of body", eyes roll back in head, 12/21/19) lidocaine (Verified Adverse Reaction, Intermediate, increases HR when applied to upper body, 12/21/19) lorazepam (Verified Adverse Reaction, Intermediate, hallucinations, alters mind, 12/21/19) meperidine (Verified Adverse Reaction, Intermediate, "out of body", shaky, 12/21/19) morphine (Verified Adverse Reaction, Intermediate, severe headache with large doses, 12/21/19) pregabalin (Verified Adverse Reaction, Intermediate, anxiety, shaking, 12/21/19) albuterol (Verified Adverse Reaction, Mild, shaky, 12/21/19) aspirin (Verified Adverse Reaction, Mild, ulcers - full strength only, 12/21/19) baclofen (Verified Adverse Reaction, Mild, shaking, 12/21/19) chlorpromazine (Verified Adverse Reaction, Mild, "out of body experience", 01/13/20) codeine (Verified Adverse Reaction, Mild, "out of body", 01/13/20) fentanyl (Verified Adverse Reaction, Mild, nervous, 12/21/19) fluphenazine (Verified Adverse Reaction, Mild, "out of body experience", 01/13/20) gabapentin (Verified Adverse Reaction, Mild, "very nervous/Anxious", 01/13/20) hydrocodone (Verified Adverse Reaction, Mild, confusion (Vicodin), 01/13/20) mesoridazine (Verified Adverse Reaction, Mild, "out of body experience", 01/13/20) midazolam (Verified Adverse Reaction, Mild, nervous, 12/21/19) perphenazine (Verified Adverse Reaction, Mild, "out of body experience", 01/13/20) prochlorperazine (Verified Adverse Reaction, Mild, "out of body experience", 01/13/20) promethazine (Verified Adverse Reaction, Mild, "out of body" - phenothiazines, 01/13/20) propoxyphene (Verified Adverse Reaction, Mild, "out of body", 01/13/20) red dye (Verified Adverse Reaction, Mild, not a true allergy, please see comments, 12/21/19) Patient states that she becomes anxious if the contents of her ostomy are red, so she tries to avoid. tiagabine (Verified Adverse Reaction, Mild, nervous, 12/21/19) tramadol (Verified Adverse Reaction, Mild, vomiting, 01/13/20) trifluoperazine (Verified Adverse Reaction, Mild, "out of body experience", 01/13/20) magnesium citrate (Verified Adverse Reaction, Unknown, states it makes her stomach bloat from the carbination, 01/13/20) COOKIE FREEMAN MD Jul 25, 2020 12:41
--- NOTE | 2020-07-25 13:52 | DSES ---
DISCHARGE SUMMARY DATE OF ADMISSION: 07/19/2020 DATE OF DISCHARGE: 07/25/2020 PRIMARY DISCHARGE DISAGNOSES: 1. Intractable abdominal pain without evidence of obstruction or perforation. 2. History of multiple abdominal surgical procedures. 3. Chronic pain syndrome. 4. Type-2 diabetes. 5. Hypertension. 6. Hyperlipidemia. 7. Depression. 8. Klebsiella urinary tract infection completed 3 days of I.V. ceftriaxone. DISCHARGE MEDICATIONS: 1. Dilaudid 2 mg by mouth twice a day as needed for pain. 2. Albuterol 2.5 mg every 4 hours as needed for shortness of breath. 3. Amitriptyline 150 mg every evening. 4. Amitriptyline 50 mg daily. 5. Ammonium lactate topically twice a day for dry skin. 6. Vitamin D 1000 units daily. 7. Dicyclomine 10 mg four times a day. 8. Estradiol 1 gram PV daily. 9. Levemir insulin 35 units daily. 10. Lactulose 30 mL by mouth three times a day. 11. Victoza 1.2 mg subcu daily. 12. Mesalamine 1 gram by mouth at bedtime. 13. Reglan 10 mg before meals. 14. Mometasone 2 sprays in nares daily. 15. Mupirocin topically three times a day. 16. Nystatin topically twice a day. 17. Zofran 4 mg twice a day. 18. Senokot 1 tablet twice a day. 19. Simethicone 160 with meals. 20. Carafate 1 gram twice a day. 21. Triamcinolone topically twice a day as needed for rash. HISTORY AND HOSPITAL COURSE: This is a 59 -year-old female admitted on 07/19/2020. Past medical history significant for multiple abdominal surgeries, intractable pain, diabetes, bowel obstructions with abdominal wall hernia repair, multiple small bowel resections, colectomy with a chronic ostomy admitted on 07/19/2020 due to intractable back pain without relief with her Dilaudid twice a day. Patient had been seen by general surgeon Dr. Campuzano as an outpatient with referral to reconstruction specialist for her multiple abdominal hernias in [place], [place], with an appointment on August 02, 2020. Patient described the pain as sharp, stabbing and shooting. CT abdomen and pelvis had no acute abnormalities. Patient was unable to stand due to severe pain, felt like she was going to pass out. General surgeon was consulted Dr. Ram who did not feel the patient had any acute surgical need and recommended conservative management with pain medication, I.V. fluids. Urinalysis was consistent with UTI. She was treated with I.V. ceftriaxone for 3 days. Urine culture grew out Klebsiella pneumonia resistant to nitrofurantoin and ampicillin, sensitive to ceftriaxone. Patient had no fever, normal white count, liver function tests on admission were normal. Patient had uncontrolled type-2 diabetes with glucose of 307 and had lactic acidosis treated with I.V. fluids and resuming her Levemir insulin. Due to decreased oral intake she had episodes of low potassium, hypokalemia treated with potassium supplement. Blood culture was negative. Respiratory panel was negative for Coronavirus. Patient was instructed to keep her appointment on August 02, 2020 and transportation has been arranged by [facility]. PHYSICAL EXAMINATION ON DISCHARGE: Temperature 97.8, pulse 81, respiratory rate 19, blood pressure 125/66, 96% on room air. General: Patient is in no distress, no use of respiratory accessory muscles. HEENT: Anicteric, no jaundice. Dry mucous membranes. Neck: No JVD, thyromegaly. Lungs: Clear to auscultation, no wheezing or rales. Heart: S1 and S2 sinus rhythm. Abdomen: Soft, nondistended. Patient has tender bilateral lower quadrants, no guarding or rebound. No hepatosplenomegaly. Extremities: Bilateral pitting edema. LABORATORY DATA: Microbiology: Klebsiella in the urine culture resistant to ampicillin and nitrofurantoin, sensitive to Levaquin and ceftriaxone. Respiratory panel 07/19/2020: Negative. Blood culture 2 sets from 07/19/2020: No growth after 5 days. IMAGING STUDIES: 07/19/2020 CT abdomen and pelvis: Mild patchy atelectasis or infiltrate of left lung base, otherwise no acute findings. Time spent on discharge: Thirty minutes. [facility]
== END 2020-07-25 11:45 | disposition home health service (06) | DRG 463 ==
LOC: EDBD 12:41 → M ED 12:41 → M ED INP 18:25 → ENRESERV 23:33 → M ICU 07-20 00:20 → M PCU 07-20 15:13 → M MS5PR 07-24 08:13
PROVIDERS: ADMIT Internal Medicine; ATTEND General Practice
DX: N39.0 Urinary tract infection, site not specified (principal); I10 Essential (primary) hypertension; E11.9 Type 2 diabetes mellitus without complications; B96.1 Klebsiella pneumoniae [K. pneumoniae] as the cause of diseases classified elsewhere; F32.9 Major depressive disorder, single episode, unspecified; R10.9 Unspecified abdominal pain; E78.5 Hyperlipidemia, unspecified; G89.29 Other chronic pain; E87.6 Hypokalemia; Z91.040 Latex allergy status; Z91.041 Radiographic dye allergy status; Z88.0 Allergy status to penicillin; Z88.2 Allergy status to sulfonamides; Z88.8 Allergy status to other drugs, medicaments and biological substances; Z91.018 Allergy to other foods; Z88.5 Allergy status to narcotic agent; Z93.3 Colostomy status

== ENCOUNTER 2020-08-14 07:11 | Outpatient (CLI) | payer OTHER ==
[~2020-08-14] VITALS: Ht 170.2 cm; Wt 79.6 kg
[~2020-08-14 07:11] MED LIST changes: +ESTR1CRE PV; +MESA50SU PR; +MOME50SP2 NARES; +MUPI2OI TOP; +ONDA4INJ4 IV; +SODIUM CHLORIDE 0.9% INJ 10 ML SYR IV PRN; +VICT18IN SC
[2020-08-14] MEDS ORDERED: SODIUM CHLORIDE 0.9% INJ 10 ML SYR IV SCH (09:00)
[2020-08-14 09:18] LABS: ALBUMIN 3.2 GM/DL (3.2-5.2); BLOOD UREA NITROGEN 10 MG/DL (7-18); CALCIUM LEVEL 10.2 MG/DL (8.5-10.1); CARBON DIOXIDE LEVEL 26 MEQ/L (21-32); CHLORIDE LEVEL 104 MEQ/L (98-107); CREATININE FOR GFR 0.46 MG/DL (0.55-1.30); GLOMERULAR FILTRATION RATE > 60.0 (>51); GLUCOSE, FASTING 213 MG/DL (70-100); MAGNESIUM LEVEL 1.8 MG/DL (1.8-2.4); PHOSPHORUS LEVEL 3.1 MG/DL (2.5-4.9); POTASSIUM SERUM 3.9 MEQ/L (3.5-5.1); SODIUM LEVEL 137 MEQ/L (136-145)
== END 2020-08-14 07:55 | disposition home or self-care (01) ==
LOC: M INFU 07:11
PROVIDERS: ATTEND Family Medicine
DX: E83.42 Hypomagnesemia (principal); E11.65 Type 2 diabetes mellitus with hyperglycemia
CPT/HCPCS: 36592; 80069; 83735; 96523; J1642

== ENCOUNTER 2020-08-15 14:14 | Emergency (ER) | payer OTHER ==
[~2020-08-15] VITALS: Ht 170.2 cm; Wt 79.1 kg
[~2020-08-15 14:14] MED LIST changes: -SODIUM CHLORIDE 0.9% INJ 10 ML SYR IV PRN
[2020-08-15] MEDS ORDERED: METOCLOPRAMIDE INJ 10MG/2ML VIAL (J2765 PER 1) IV ONE (15:15)
[2020-08-15] MEDS ORDERED: NS 1,000 ML IV ONE (15:15)
--- NOTE | 2020-08-15 15:43 | REP ---
INDICATION: vomiting, abd pain. COMPARISON: 10/10/2019. TECHNIQUE: Two views abdomen and pelvis. FINDINGS: No significantly dilated bowel loops are seen radiographically. A left-sided ostomy is again noted. Multiple metallic clips are seen throughout the abdomen and pelvis. Stimulator device again projects over the right abdomen with leads extending into the thoracic region. There are mild degenerative changes of the spine. IMPRESSION: No acute radiographic abnormalities. <Electronically signed by Geovanni Camejo > 08/15/20 [id number]
[2020-08-15 16:28] LABS: BASO % 0.5 % (0.0-1.0); EOS # 0.1 10^3/uL (0.0-0.5); EOS % 1.2 % (0.0-3.0); HEMATOCRIT 36.6 % (36.0-47.0); HEMOGLOBIN 11.7 g/dl (12.0-15.5); LYMPH # 1.3 10^3/uL (1.5-5.0); LYMPH % 23.7 % (24.0-44.0); MEAN CORPUSCULAR HEMOGLOBIN 32.1 pg (27.0-33.0); MEAN CORPUSCULAR VOLUME 100.5 fl (80.0-96.0); MONO # 0.5 10^3/uL (0.0-0.8); MONO % 8.8 % (2.0-8.0); NEUTROPHILS # 3.7 10^3/uL (1.5-8.5); NEUTROPHILS % 65.3 % (36.0-66.0); PLATELET COUNT, AUTOMATED 197 10^3/uL (150-450); RED BLOOD COUNT 3.64 10^6/uL (4.00-5.40); WHITE BLOOD COUNT 5.7 10^3/uL (4.0-10.0)
[2020-08-15] MEDS ORDERED: HYDROMORPHONE HCL 0.5 MG/ 0.5 ML SYRINGE (J1170 PER 1) IV ONE ×2 (17:10→21:00)
[2020-08-15 17:17] LABS: ALBUMIN 2.2 GM/DL (3.2-5.2); ALT/SGPT 24 U/L (12-78); BILIRUBIN,DIRECT < 0.1 MG/DL (0.0-0.2); BILIRUBIN,TOTAL 0.1 MG/DL (0.2-1.0); BLOOD UREA NITROGEN 6 MG/DL (7-18); CALCIUM LEVEL 7.3 MG/DL (8.5-10.1); CARBON DIOXIDE LEVEL 20 MEQ/L (21-32); CHLORIDE LEVEL 115 MEQ/L (98-107); CREATININE FOR GFR 0.19 MG/DL (0.55-1.30); GLOMERULAR FILTRATION RATE > 60.0 (>51); GLUCOSE, FASTING 87 MG/DL (70-100); LIPASE 34 U/L (73-393); POTASSIUM SERUM 2.7 MEQ/L (3.5-5.1); SODIUM LEVEL 145 MEQ/L (136-145); TOTAL PROTEIN 5.5 GM/DL (6.4-8.2)
[2020-08-15 17:52] LABS: MAGNESIUM LEVEL 1.1 MG/DL (1.8-2.4)
[2020-08-15] MEDS ORDERED: ONDANSETRON 4MG/2ML VIAL IV ONE (17:55)
[2020-08-15] MEDS ORDERED: MAG SULF 1GM/100ML (MAG RUN) 1 GM in IV 1 EA IV ONE ×2 (18:10→20:25)
[2020-08-15] MEDS ORDERED: KCL 10MEQ/100ML SWI (KRUN) 10 MEQ in IV 1 EA IV ONE (18:10)
[2020-08-15] MEDS ORDERED: POTASSIUM CHLORIDE 10 MEQ SR TABLET PO ONE (20:40)
[2020-08-15] MEDS ORDERED: SODIUM CHLORIDE 0.9% INJ 10 ML SYR IV PRN (23:20)
[2020-08-15 23:45] VITALS: BP 132/65
== END 2020-08-16 00:05 | disposition home or self-care (01) ==
LOC: M ED 14:14
DX: R10.9 Unspecified abdominal pain (principal); R11.2 Nausea with vomiting, unspecified; E83.42 Hypomagnesemia; E87.6 Hypokalemia; E11.9 Type 2 diabetes mellitus without complications; Z79.4 Long term (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; Z79.899 Other long term (current) drug therapy; Z91.041 Radiographic dye allergy status; Z91.89 Other specified personal risk factors, not elsewhere classified; Z91.018 Allergy to other foods; Z88.0 Allergy status to penicillin; Z88.2 Allergy status to sulfonamides; Z88.8 Allergy status to other drugs, medicaments and biological substances; Z88.1 Allergy status to other antibiotic agents; Z91.040 Latex allergy status; Z88.5 Allergy status to narcotic agent
CPT/HCPCS: 74019; 80048; 80076; 83605; 83690; 83735; 85025; 96365; 96367; 96375; 96376; 99284; J1170; J1642; J2405; J2765; J3475

== ENCOUNTER 2020-08-31 08:33 | Outpatient (CLI) | payer OTHER ==
[~2020-08-31] VITALS: Ht 170.2 cm; Wt 79.6 kg
[~2020-08-31 08:33] MED LIST changes: +SODIUM CHLORIDE 0.9% INJ 10 ML SYR IV PRN
[2020-08-31 08:50] VITALS: BP 125/72
[2020-08-31] MEDS ORDERED: SODIUM CHLORIDE 0.9% INJ 10 ML SYR IV SCH (09:00)
[2020-08-31 09:10] LABS: HEMATOCRIT 36.6 % (36.0-47.0); HEMOGLOBIN 11.8 g/dl (12.0-15.5); MEAN CORPUSCULAR HEMOGLOBIN 32.2 pg (27.0-33.0); MEAN CORPUSCULAR HGB CONC 32.2 g/dl (32.0-36.5); PLATELET COUNT, AUTOMATED 203 10^3/uL (150-450); RED BLOOD COUNT 3.66 10^6/uL (4.00-5.40); WHITE BLOOD COUNT 4.9 10^3/uL (4.0-10.0)
[2020-08-31 09:54] LABS: ALBUMIN 3.2 GM/DL (3.2-5.2); ALT/SGPT 50 U/L (12-78); BILIRUBIN,TOTAL 0.2 MG/DL (0.2-1.0); BLOOD UREA NITROGEN 9 MG/DL (7-18); CALCIUM LEVEL 9.6 MG/DL (8.5-10.1); CARBON DIOXIDE LEVEL 25 MEQ/L (21-32); CHLORIDE LEVEL 101 MEQ/L (98-107); GLOMERULAR FILTRATION RATE > 60.0 (>51); GLUCOSE, FASTING 186 MG/DL (70-100); POTASSIUM SERUM 4.2 MEQ/L (3.5-5.1); SODIUM LEVEL 135 MEQ/L (136-145); TOTAL PROTEIN 7.7 GM/DL (6.4-8.2)
[2020-08-31 10:05] LABS: ATYPICAL LYMPH 2 % (0-5); BASOPHILS 1 % (0-1); EOSINOPHILS 3 % (0-3); LYMPHOCYTES 24 % (16-44); MONOCYTES 4 % (0-5); NEUTROPHILS 66 % (28-66); PLATELET ESTIMATE NORMAL (NORMAL)
== END 2020-08-31 08:55 | disposition home or self-care (01) ==
LOC: M INFU 08:33
PROVIDERS: ATTEND Family Medicine
DX: K91.2 Postsurgical malabsorption, not elsewhere classified (principal); E83.42 Hypomagnesemia; E87.6 Hypokalemia; K56.600 Partial intestinal obstruction, unspecified as to cause
CPT/HCPCS: 36591; 80053; 83735; 85025; 96523; J1642

== ENCOUNTER → 2020-09-04 | Outpatient (REF) | payer OTHER ==
[~2020-09-04] MED LIST changes: -SODIUM CHLORIDE 0.9% INJ 10 ML SYR IV PRN
[2020-09-04 18:16] LABS: APPEARANCE, URINE HAZY (CLEAR); BACTERIA, URINE AUTO NEGATIVE (NEGATIVE); BILIRUBIN, URINE AUTO NEGATIVE (NEGATIVE); BLOOD, URINE BLOOD 2+ (NEGATIVE); COLOR, URINE YELLOW (YELLOW); GLUCOSE, URINE (UA) AUTO 2+ mg/dL (NEGATIVE); KETONE, URINE AUTO NEGATIVE (NEGATIVE); LEUKOCYTE ESTERASE, URINE AUTO TRACE (NEGATIVE); NITRITE, URINE AUTO NEGATIVE (NEGATIVE); PROTEIN, URINE AUTO NEGATIVE (NEGATIVE); RBC, URINE AUTO 8 /HPF (0-3); SPECIFIC GRAVITY URINE AUTO 1.012 (1.002-1.035); SQUAMOUS EPITHELIAL CELL UR AU 5 /HPF (0-6); UROBILINOGEN, URINE AUTO 0.2 mg/dL (0.0-2.0); WBC, URINE AUTO 4 /HPF (0-3)
== END ==
LOC: M SFHCPLAZ 16:46
PROVIDERS: ATTEND Family Medicine
DX: R30.0 Dysuria (principal)

== ENCOUNTER 2020-09-06 11:13 | Emergency (ER) | payer OTHER ==
[~2020-09-06] VITALS: Ht 170.2 cm; Wt 80.8 kg
[2020-09-06] MEDS ORDERED: NS 1,000 ML IV ONE (12:40)
[2020-09-06] MEDS: HYDROMORPHONE HCL 0.5 MG/ 0.5 ML SYRINGE (J1170 PER 1) IV PRN ×2 (13:55→17:00)
[2020-09-06 14:10] LABS: BASO % 0.6 % (0.0-1.0); EOS # 0.1 10^3/uL (0.0-0.5); EOS % 1.4 % (0.0-3.0); HEMATOCRIT 34.5 % (36.0-47.0); HEMOGLOBIN 11.1 g/dl (12.0-15.5); LYMPH # 1.2 10^3/uL (1.5-5.0); LYMPH % 22.8 % (24.0-44.0); MEAN CORPUSCULAR HGB CONC 32.2 g/dl (32.0-36.5); MEAN CORPUSCULAR VOLUME 99.4 fl (80.0-96.0); MONO # 0.5 10^3/uL (0.0-0.8); MONO % 8.9 % (2.0-8.0); NEUTROPHILS # 3.4 10^3/uL (1.5-8.5); NEUTROPHILS % 65.9 % (36.0-66.0); PLATELET COUNT, AUTOMATED 203 10^3/uL (150-450); RED BLOOD COUNT 3.47 10^6/uL (4.00-5.40); WHITE BLOOD COUNT 5.2 10^3/uL (4.0-10.0)
[2020-09-06] MEDS ORDERED: ONDANSETRON 4MG/2ML VIAL IV ONE (14:40)
--- NOTE | 2020-09-06 15:44 | REP ---
INDICATION: abd distention r/o obstruction COMPARISON: 08/15/2020 TECHNIQUE: Upright view of the chest with supine and upright views of the abdomen and pelvis. FINDINGS: Upright view of the chest demonstrates Nzyozi-C-Oroo with tip in the SVC and chronic appearing changes primarily involving the lower lobes. Elements of atelectasis and possible small left pleural effusion cannot definitively be excluded. No obvious free air below diaphragm to suggest perforation. Supine and upright views of the abdomen and pelvis demonstrate postsurgical changes. No obvious bowel obstruction or perforation. Skeletal structures are intact. IMPRESSION: Relatively chronic appearing changes. No evidence for bowel obstruction or perforation. <Electronically signed by Darius Roth > 09/06/20 [id number]
--- NOTE | 2020-09-06 16:59 | REP ---
INDICATION: abdominal pain, bloating, r/o obstruction COMPARISON: 07/19/2020 TECHNIQUE: Axial noncontrast images from the lung bases to the pubic symphysis with coronal and sagittal reformations. This CT examination was performed using the following dose reduction techniques: Automated exposure control, adjustment of mA and/or kv according to the patient's size, and use of iterative reconstruction technique. FINDINGS: Lung bases demonstrate chronic appearing fibroatelectatic changes. Liver demonstrates hepatomegaly without focal hepatic lesion. Spleen, pancreas, bilateral adrenal glands and kidneys are essentially normal for noncontrast examination. 2 mm nonobstructing left renal calculus incidentally noted. Patient appears to be status post total colectomy and ostomy via the left anterior abdominal wall. Oversewn Maribell's pouch identified in the pelvis. There is no evidence for bowel obstruction. Ventral hernia repair. Pelvis demonstrates normal bladder and prior hysterectomy. No ascites. No free air. No adenopathy. No focal inflammatory stranding. Abdominal aorta without aneurysm. Musculoskeletal structures are intact and without acute osseous abnormality. IMPRESSION: 1. Chronic nonacute findings as described above. 2. No acute abdominopelvic pathology appreciated. <Electronically signed by Darius Roth > 09/06/20 [id number]
[2020-09-06] MEDS ORDERED: HYDROmorphone 2 MG TAB PO ONE (17:55)
[2020-09-06] MEDS ORDERED: SODIUM CHLORIDE 0.9% INJ 10 ML SYR IV PRN (18:05)
[2020-09-06 18:17] VITALS: BP 146/72
[2020-09-07] MEDS ORDERED: SODIUM CHLORIDE 0.9% INJ 10 ML SYR IV SCH (09:00)
== END 2020-09-06 18:27 | disposition home or self-care (01) ==
LOC: M ED 11:13
DX: R10.0 Acute abdomen (principal); N20.0 Calculus of kidney; R16.0 Hepatomegaly, not elsewhere classified; J98.11 Atelectasis; Z90.49 Acquired absence of other specified parts of digestive tract; Z93.3 Colostomy status; Z95.828 Presence of other vascular implants and grafts; Z79.4 Long term (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; Z79.899 Other long term (current) drug therapy; Z91.041 Radiographic dye allergy status; Z91.040 Latex allergy status; Z88.0 Allergy status to penicillin; Z88.2 Allergy status to sulfonamides; Z91.89 Other specified personal risk factors, not elsewhere classified; Z88.1 Allergy status to other antibiotic agents; Z88.5 Allergy status to narcotic agent; Z91.018 Allergy to other foods; Z88.8 Allergy status to other drugs, medicaments and biological substances
CPT/HCPCS: 74021; 74176; 80047; 83605; 85025; 96361; 96374; 96375; 96376; 99283; J1170; J1642; J2405

== ENCOUNTER 2020-09-28 09:22 | Inpatient (IN) | payer OTHER ==
[~2020-09-28] VITALS: Ht 170.2 cm; Wt 81.1 kg
[2020-09-28] MEDS ORDERED: NS 1,000 ML IV SCH (09:40)
[2020-09-28] MEDS ORDERED: ONDANSETRON 4MG/2ML VIAL IV ONE ×2 (09:40→13:00)
--- NOTE | 2020-09-28 10:09 | REP ---
INDICATION: abd pain/vomiting COMPARISON: 09/06/2020 TECHNIQUE: Axial noncontrast images from the lung bases to the pubic symphysis with coronal and sagittal reformations. This CT examination was performed using the following dose reduction techniques: Automated exposure control, adjustment of mA and/or kv according to the patient's size, and use of iterative reconstruction technique. FINDINGS: Lung bases demonstrate chronic appearing changes. Visualized heart and pericardium normal. Liver demonstrates a vague area heterogeneity within the left hepatic lobe of uncertain significance. Spleen, atrophic pancreas, bilateral adrenal glands and kidneys are essentially normal for noncontrast evaluation. Evidence for prior cholecystectomy. Findings consistent with total colectomy and ostomy via the left anterior abdominal wall. There is no evidence for bowel obstruction or obvious acute inflammatory process. Pelvis demonstrates normal bladder and prior hysterectomy along with oversewn Maribell's pouch. No ascites. No free air. No adenopathy. No focal inflammatory stranding. Abdominal aorta without aneurysm. Musculoskeletal structures are intact and without acute osseous abnormality. IMPRESSION: 1. Vague heterogeneous changes suggested within the left hepatic lobe. Consider contrast-enhanced CT, MRI, or abdominal ultrasound for further investigation. 2. No further acute abdominopelvic pathology appreciated. 3. Postsurgical changes as described above. 4. No ascites, focal inflammatory stranding, adenopathy, or free air. <Electronically signed by Darius Roth > 09/28/20 [id number]
[2020-09-28] MEDS: HYDROMORPHONE HCL 0.5 MG/ 0.5 ML SYRINGE (J1170 PER 1) IV PRN ×2 (10:17→11:23)
[2020-09-28 10:18] LABS: BASO % 0.3 % (0.0-1.0); EOS % 0.7 % (0.0-3.0); HEMOGLOBIN 11.6 g/dl (12.0-15.5); LYMPH # 1.3 10^3/uL (1.5-5.0); LYMPH % 21.8 % (24.0-44.0); MEAN CORPUSCULAR HGB CONC 32.2 g/dl (32.0-36.5); MEAN CORPUSCULAR VOLUME 99.2 fl (80.0-96.0); MONO # 0.5 10^3/uL (0.0-0.8); MONO % 8.2 % (2.0-8.0); NEUTROPHILS % 68.7 % (36.0-66.0); PLATELET COUNT, AUTOMATED 195 10^3/uL (150-450); RED BLOOD COUNT 3.63 10^6/uL (4.00-5.40); WHITE BLOOD COUNT 5.8 10^3/uL (4.0-10.0)
[2020-09-28] MEDS ORDERED: NS 1,000 ML IV ONE (11:00)
[2020-09-28 11:11] LABS: ALT/SGPT 42 U/L (12-78); BILIRUBIN,DIRECT < 0.1 MG/DL (0.0-0.2); BILIRUBIN,TOTAL 0.2 MG/DL (0.2-1.0); BLOOD UREA NITROGEN 12 MG/DL (7-18); CALCIUM LEVEL 8.9 MG/DL (8.8-10.2); CARBON DIOXIDE LEVEL 21 MEQ/L (21-32); CHLORIDE LEVEL 103 MEQ/L (98-107); CREATININE FOR GFR 0.57 MG/DL (0.55-1.30); GLOMERULAR FILTRATION RATE > 60.0 (>45); GLUCOSE, FASTING 289 MG/DL (70-100); LIPASE 73 U/L (73-393); SODIUM LEVEL 134 MEQ/L (136-145); TOTAL PROTEIN 7.3 GM/DL (6.4-8.2)
[2020-09-28 13:53] LABS: RSV AMPLIFICATION NEGATIVE (NEGATIVE)
[2020-09-28] MEDS ORDERED: ONDANSETRON 4MG/2ML VIAL IV PRN ×2 (14:25→19:00)
[2020-09-28] MEDS ORDERED: ALBU8.5H INH (14:30)
[2020-09-28] MEDS ORDERED: IPRA0.00 INH (14:30)
[2020-09-28] MEDS ORDERED: HYDROmorphone 2 MG TAB PO PRN (14:35)
[2020-09-28] MEDS ORDERED: IPRATROPIUM 0.5MG/ALBUTEROL 2.5MG INH SOL UD 3ML (DUONEB) INH PRN (14:35)
[2020-09-28 15:30] VITALS: BP 128/58
[2020-09-28] MEDS ORDERED: GLUCOSE 4GM CHEW TABLET PO PRN (15:30)
[2020-09-28] MEDS ORDERED: GLUCAGON INJ 1MG VIAL SC PRN (15:30)
[2020-09-28] MEDS ORDERED: DEXTROSE 50% 50 ML SYRINGE IV PRN (15:30)
[2020-09-28] MEDS: PANTOPRAZOLE 40MG VIAL (C9113 PER 1) IV SCH ×2 (15:46→20:54)
[2020-09-28] MEDS: metroNIDAZOLE 500 MG in IV 1 EA IV SCH ×2 (15:47→23:49)
[2020-09-28] MEDS ORDERED: MIRALAX *UNIT DOSE* 17GM PACKET PO ONE (16:30)
[2020-09-28] MEDS: cefTRIAXone SOD 1 GM in D5W MINI-BAG PLUS 50 ML IV SCH (16:59)
[2020-09-28] MEDS: ONDANSETRON 4MG/2ML VIAL IV PRN (17:34)
[2020-09-28] MEDS: HumaLOG INSULIN (NovoLOG) PER UNIT SC SCH (17:40)
[2020-09-28] MEDS ORDERED: SUCRALFATE 1 GM TAB PO SCH (18:00)
[2020-09-28] MEDS: HYDROmorphone HCL 2 MG/ML 1ML VIAL (J1170) IV PRN (18:06)
[2020-09-28] MEDS: NS 1,000 ML IV SCH (19:00)
[2020-09-28] MEDS ORDERED: LIDOCAINE 2% JELLY 6 ML SYRINGE TOP ONE (19:05)
--- NOTE | 2020-09-28 20:11 | HPEPDOC ---
[facility] Medical History & Physical Date of Admission Sep 28, 2020 Date of Service: Sep 28, 2020 Primary Care Physician: Tutu Sanchez MD Attending Physician: BACILIO LUCERO MD History and Physical CHIEF COMPLAINT: Intractable vomiting 1 day, abdominal pain 3 days HISTORY OF PRESENT ILLNESS: Patient is a 60-year-old female with a past medical history of insulin-dependent diabetes and multiple hospitalizations for diffuse abdominal pain complicated by small bowel resection and total colectomy with ostomy bag placement, who presents due to intractable vomiting for the past day. She reports that 3 days ago she noticed a small amount of blood in her ostomy bag, which was followed by black liquid output the next day. After this episode. She reports that output is ostomy bag changed to liquidy stool and states that is less than the normal volume. She reports diffuse abdominal pain. She reports that Dr. Sanchez has referred her to [place], [place] to have corrective surgery done. According to medical notes, there is no corrective surgery has been planned for the patient's abdominal issues. The patient reports that Dr. Campuzano placed an [id number] approximately 6 years ago, which is functional. In the ED the patient received IV Zofran 2 doses and IV Dilaudid without resolution of vomiting. Patient reports that the person to contact for medical decision making if she becomes attended during hospitalization is her brother, Srinivasa Franklin to be reached at [phone]. Patient reports that she would not like to be resuscitated or intubated during hospitalization and has a DNR/DNI MOLST form registered with Dr. Sanchez's office. PAST MEDICAL HISTORY: IDDM Reflex sympathetic dystrophy. Status post ostomy placement PAST SURGICAL HISTORY: (obtained from pt's clinical records) Total hysterectomy, at age 21. AV fistula repair, left leg 1988 Cholecystectomy 1989 Small bowel obstruction. 2001. Abdominal hernia repair 2004 Ventral hernia repair 2009 Dorsal column stimulator taken out and new one implanted Small bowel resection and ventral hernia repair (with Tatianna) Ileostomy (Tatianna) Total colectomy with ostomy bag placement. Cyst removal from right nostril, September 2012. Repair of hernias and stomal repair Parastomal hernia repair (Tatianna) Hernia and stoma repair (Tatianna) [id number] placement 2017 Hernia repair x 4 stoma reversal, October 2017 Battery replacement for dorsal column stimulator February 2018 SOCIAL HISTORY: Patient resides at home with her father. She denies alcohol use, denies smoking history, denies illicit drug use. She states there are no stairs to get into her house. She reports that her apartment is adjacent to her father's residence. FAMILY HISTORY: Father: Kidney cancer Mother: Multiple myeloma ALLERGIES: Please see below. REVIEW OF SYSTEMS: CONSTITUTIONAL:. Patient reports chills and night sweats last night, denies any changes in weight HEENT: Denies discharge from eyes, denies rhinorrhea. Denies cough. CARDIOVASCULAR: Denies heart palpitations. Denies chest pain. RESPIRATORY: Denies shortness of breath. GASTROINTESTINAL: Reports nausea and vomiting and ostomy bag output per HPI. GENITOURINARY: Denies dysuria. SKIN: Reports a new rash coming on on her face, which is not unusual for her in stressful situations. MUSCULOSKELETAL:. Denies motor dysfunction of upper and lower extremities. NEUROLOGICAL:. Denies numbness or tingling. PSYCHIATRIC:. Denies auditory or visual hallucinations, but reports being distressed. ENDOCRINE:. Denies polydipsia or polyuria. HEMATOLOGIC/LYMPHATIC:. Denies easy bleeding or bruising. HOME MEDICATIONS: Please see below. PHYSICAL EXAMINATION: VITAL SIGNS: See below GENERAL APPEARANCE:. Patient appears in mild distress, lying back in bed, appearing older than stated age, patient is cooperative on exam and able to talk through sentences without catching her breath. HEENT: Nonicteric sclera, nares patent, oropharyngeal mucosa moist. CARDIOVASCULAR: Systolic ejection murmur heard best in the pulmonic area. LUNGS: Clear to auscultation bilaterally. No wheezes, rales or rhonchi appreciated. ABDOMEN:. Soft, distended, bowel sounds diminished, diffusely tender in all quadrants. MUSCULOSKELETAL: Gross upper and lower extremity strength 5 out of 5. EXTREMITIES: No clubbing, cyanosis or edema appreciated. NEUROLOGICAL: Nerves III-12 intact. PSYCHIATRIC: Flat affect, cooperative on exam, alert and oriented 4. LABORATORY DATA: See below. IMAGING: Abdomen/pelvis CT 09/28/2020 1. Vague heterogeneous changes suggested within the left hepatic lobe. 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 2. No further acute abdominopelvic pathology appreciated. 3. Postsurgical changes as described above. 4. No ascites, focal inflammatory stranding, adenopathy, or free air. MICROBIOLOGY: Please see below. ASSESSMENT: This is a 60YOF patient with a past medical history of multiple hospitalizations secondary to decreased ostomy bag output, abdominal pain, and intractable vomiting and IDDM type II. PLAN: #Abdominal pain out of proportion to physical exam. Due to patient's allergies to contrast CT abdominal arteries and CT abdomen with contrast could not be ordered . Complete abdominal ultrasound has been ordered for tomorrow a.m. Patient to be strictly nothing by mouth after midnight, is nothing by mouth except for medications at this time. NG tube placed with low intermittent suctioning to be adjusted by monitoring NG tube output. Occult blood stool test ordered from ostomy bag Continue IV Dilaudid 1 mg every 8 hours as needed for pain. Acetaminophen 650 mg every 6 hours as needed for fever or pain Blood cultures ordered. UA with reflex to culture ordered. MRSA PCR screen ordered. Repeat lactic acid ordered. Ordered CMP Gastroenterology consulted, inpatient service team appreciates input. Surgical team consulted, inpatient service team appreciates input. #Vomiting. Continue IV Zofran every 6 hours. NG tube placement ordered, low intermittent suctioning while monitoring NG tube output, to fix suctioning accordingly. Start IV 40 mg Protonix twice a day Keep nothing by mouth with medication Keep strictly nothing by mouth after midnight for Abdominal ultrasound Since patient is nothing by mouth fall risk precautions in place. Assisted ambulation only. Continue monitoring I's and O's, every 4 hours #Decreased hemoglobin/hematocrit levels Continue monitoring H&H every 6 hours #Intra-abdominal infection prophylaxis. Start ceftriaxone and metronidazole (continue for 5 days, per Dr. Jean) #Chronic pain. Continuing home Dilaudid in the form of IV Dilaudid for an out of proportion to exam. See above. #Insulin-dependent diabetes mellitus type 2. Hold Levemir at this time due to patient being nothing by mouth Sliding scale insulin every 6 hours due to nothing by mouth in place Hypoglycemic protocol in place. DVT prophylaxis: Teds and sequentials Disposition: Pending input from surgical team. Vital Signs Vital Signs Date Time Temp Pulse Resp B/P (MAP) Pulse Ox O2 Delivery O2 Flow Rate FiO2 09/28/20 15:30 97.5 91 18 128/58 (81) 96 Room Air Laboratory Data Labs 24H Laboratory Tests 2 09/28/20 09:37: Immature Granulocyte % (Auto) 0.3, Neutrophils (%) (Auto) 68.7H, Lymphocytes (%) (Auto) 21.8L, Monocytes (%) (Auto) 8.2H, Eosinophils (%) (Auto) 0.7, Basophils (%) (Auto) 0.3, Neutrophils # (Auto) 4.0, Lymphocytes # (Auto) 1.3L, Monocytes # (Auto) 0.5, Eosinophils # (Auto) 0.0, Basophils # (Auto) 0.0, Nucleated Red Blood Cells % (auto) 0.0, Anion Gap 10, Glomerular Filtration Rate > 60.0, Lactic Acid Level 4.6*H, Calcium Level 8.9, Total Bilirubin 0.2, Direct Bilirubin < 0.1, Aspartate Amino Transf (AST/SGOT) 65H, Alanine Aminotransferase (ALT/SGPT) 42, Alkaline Phosphatase 90, Total Protein 7.3, Albumin 3.0L, Albumin/Globulin Ratio 0.7L, Lipase 73 09/28/20 13:05: Coronavirus (COVID-19)(PCR) NEGATIVE, Influenza Type A (RT-PCR) NEGATIVE, Influenza Type B (RT-PCR) NEGATIVE, Respiratory Syncytial Virus (PCR) NEGATIVE 09/28/20 14:37: Lactic Acid Followup at 4 Hours 2.1*H CBC/BMP Laboratory Tests 09/28/20 09:37 Microbiology Microbiology 09/28/20 Blood Culture, Received Pending Home Medications Scheduled Amitriptyline HCl (Amitriptyline HCl) 50 Mg Tab, 150 MG PO QHS Amitriptyline HCl (Amitriptyline HCl) 50 Mg Tab, 50 MG PO DAILY Ammonium Lactate (Ammonium Lactate) 12% Lotion, 1 APLCT TOP DAILY TO BOTH FEET Cholecalciferol (Vitamin D3) (Vitamin D3) 1,000 Unit Tablet, 1,000 UNITS PO DAILY Dicyclomine HCl (Dicyclomine HCl) 10 Mg Capsule, 10 MG PO QID Estradiol (Estrace) 42.5 Gm Cream.appl, 1 GRAM PV QHS Insulin Detemir (Levemir Flextouch) 100 Unit/1 Ml Insuln.pen, 40 UNITS SQ DAILY Lactulose (Lactulose) 10 Gm/15 Ml Faisal, 30 ML PO QID Liraglutide (Victoza 2-Eulalio) 0.6 Mg/0.1 Ml Pen.injctr, 1.8 MG SC DAILY Mesalamine (Canasa) 1,000 Mg Supp.rect, 1,000 MG MT QHS Metoclopramide HCl (Reglan) 10 Mg Tablet, 10 MG PO AC Mupirocin (Mupirocin) 2 % Oint...g., 1 DOSE TOP TID TO NARES Ondansetron HCl/Pf (Ondansetron HCl 4 mg/2 ml Vial) 4 Mg/2 Ml Vial, 4 MG IV BID Sennosides/Docusate Sodium (Senna-S Tablet) 1 Each Tablet, 1 TAB PO DAILY Simethicone (Simethicone) 80 Mg Tab.chew, 160 MG PO ACHS Sucralfate (Sucralfate) 1 Gm Tablet, 1 GM PO BID Scheduled PRN Albuterol Sulfate (Albuterol Sulfate Hfa) 8.5 Gm Hfa.aer.ad, 2 PUFFS INH Q4H PRN for SHORTNESS OF BREATH Hydromorphone HCl (Dilaudid) 2 Mg Tablet, 2 MG PO Q6H PRN for PAIN LEVEL 6-10 Ipratropium/Albuterol Sulfate (Iprat-Albut 0.5-3(2.5) mg/3 ml) 3 Ml Ampul.neb, 1 FAISAL INH Q6H PRN for SHORTNESS OF BREATH Nystatin (Nystatin Powder) 15 Gm Powder, 1 APLCT TOP BID PRN for REDNESS/IRRITATION APPLY AROUND STOMA UNTIL IRRITATION HEALS Triamcinolone Acet (Triamcinolone Acetonide 0.1% Crm) 80 Gm Cream..g., 1 DOSE TOP BID PRN for RASH APPLY TO FACE Allergies Coded Allergies: Contrast Media (Verified Allergy, Severe, throat swelling, 12/21/19) latex (Verified Allergy, Severe, throat closes, 12/21/19) Penicillins (Verified Allergy, Intermediate, hives, 12/21/19) Sulfa (Sulfonamide Antibiotics) (Verified Allergy, Intermediate, hives, 12/21/19) adhesive tape (Verified Allergy, Intermediate, paper tape - blisters, hives, 12/21/19) azithromycin (Verified Allergy, Intermediate, hives, 12/21/19) ciprofloxacin (Verified Allergy, Intermediate, hives, 12/21/19) colchicine (Verified Allergy, Intermediate, hives, 01/13/20) gatifloxacin (Verified Allergy, Intermediate, hives, 12/21/19) nitrofurantoin (Verified Allergy, Intermediate, hives, 12/21/19) oxycodone (Verified Allergy, Intermediate, hives, 12/21/19) strawberry (Verified Allergy, Intermediate, hives, 12/21/19) tomato (Verified Allergy, Intermediate, hives, 12/21/19) Grape (Verified Allergy, Unknown, GRAPE JUICE, 12/21/19) grape (Verified Allergy, Unknown, 10/20/19) ipratropium (Verified Allergy, Unknown, 10/20/19) iodine (Verified Adverse Reaction, Severe, "out of body experience" eyes roll to back of head, 12/21/19) theophylline (Verified Adverse Reaction, Severe, seizures, 12/21/19) droperidol (Verified Adverse Reaction, Intermediate, "out of body", eyes roll back in head, 12/21/19) lidocaine (Verified Adverse Reaction, Intermediate, increases HR when a pplied to upper body, 12/21/19) lorazepam (Verified Adverse Reaction, Intermediate, hallucinations, alters mind, 12/21/19) meperidine (Verified Adverse Reaction, Intermediate, "out of body", shaky, 12/21/19) morphine (Verified Adverse Reaction, Intermediate, severe headache with large doses, 12/21/19) pregabalin (Verified Adverse Reaction, Intermediate, anxiety, shaking, 12/21/19) albuterol (Verified Adverse Reaction, Mild, shaky, 12/21/19) aspirin (Verified Adverse Reaction, Mild, ulcers - full strength only, 12/21/19) baclofen (Verified Adverse Reaction, Mild, shaking, 12/21/19) chlorpromazine (Verified Adverse Reaction, Mild, "out of body experience", 01/13/20) codeine (Verified Adverse Reaction, Mild, "out of body", 01/13/20) fentanyl (Verified Adverse Reaction, Mild, nervous, 12/21/19) fluphenazine (Verified Adverse Reaction, Mild, "out of body experience", 01/13/20) gabapentin (Verified Adverse Reaction, Mild, "very nervous/Anxious", 01/13/20) hydrocodone (Verified Adverse Reaction, Mild, confusion (Vicodin), 01/13/20) mesoridazine (Verified Adverse Reaction, Mild, "out of body experience", 01/13/20) midazolam (Verified Adverse Reaction, Mild, nervous, 12/21/19) perphenazine (Verified Adverse Reaction, Mild, "out of body experience", 01/13/20) prochlorperazine (Verified Adverse Reaction, Mild, "out of body experience", 01/13/20) promethazine (Verified Adverse Reaction, Mild, "out of body" - phenothiazines, 01/13/20) propoxyphene (Verified Adverse Reaction, Mild, "out of body", 01/13/20) red dye (Verified Adverse Reaction, Mild, not a true allergy, please see comments, 12/21/19) Patient states that she becomes anxious if the contents of her ostomy are red, so she tries to avoid. tiagabine (Verified Adverse Reaction, Mild, nervous, 12/21/19) tramadol (Verified Adverse Reaction, Mild, vomiting, 01/13/20) trifluoperazine (Verified Adverse Reaction, Mild, "out of body experience", 01/13/20) magnesium citrate (Verified Adverse Reaction, Unknown, states it makes her stomach bloat from the carbination, 01/13/20) A-FIB/CHADSVASC A-FIB History Current/History of A-Fib/PAF?: No Current PO Anticoag Therapy: No GME ATTESTATION GME ATTESTATION My faculty preceptor for this patient encounter was physically present during the encounter and was fully available. All aspects of the patient interview, examination, medical decision making process, and medical care plan development were reviewed and approved by the faculty preceptor. The faculty preceptor is aware and concurs with the plan as stated in the body of this note and will attest to such by his/her cosignature. ATTENDING NOTE I, Bacilio Lucero, have independently examined this patient and performed my own physical exam, as well as reviewed the documentation and edited where necessary. I have discussed in detail with the resident / student the findings and plan of treatment as documented by the resident / student and edited their note. I agree with their findings and treatment plan and have edited their documentation. I will continue to follow the patient during this hospital stay. Pedro Pal DO Sep 28, 2020 18:07 BACILIO LUCERO MD Sep 29, 2020 13:26
[2020-09-28 21:21] LABS: HEMATOCRIT 20.6 % (36.0-47.0); HEMOGLOBIN 6.5 g/dl (12.0-15.5)
[2020-09-28] MEDS ORDERED: LIDOCAINE 2% JELLY 5ML TUBE TOP ONE (22:15)
[2020-09-28 22:32] LABS: HEMATOCRIT 35.4 % (36.0-47.0)
[2020-09-28 22:35] LABS: HEMOGLOBIN 11.5 g/dl (12.0-15.5)
[2020-09-29] VITALS (7 sets, daily range): BP systolic 122–180; BP diastolic 58–120; O2SAT 96–97
[2020-09-29] MEDS: ONDANSETRON 4MG/2ML VIAL IV PRN ×3 (00:25→19:52)
[2020-09-29] MEDS: HYDROmorphone HCL 2 MG/ML 1ML VIAL (J1170) IV PRN ×2 (00:26→09:18)
[2020-09-29] MEDS: NS 1,000 ML IV SCH ×3 (03:31→23:14)
[2020-09-29] MEDS: HumaLOG INSULIN (NovoLOG) PER UNIT SC SCH ×4 (06:00→18:35)
[2020-09-29] MEDS: VITAMIN D 1,000 INTERNATIONAL UNITS TABLET PO SCH (08:11)
[2020-09-29] MEDS: metroNIDAZOLE 500 MG in IV 1 EA IV SCH ×2 (08:11→16:24)
[2020-09-29] MEDS: PANTOPRAZOLE 40MG VIAL (C9113 PER 1) IV SCH ×2 (08:11→19:51)
[2020-09-29 08:35] LABS: BASO % 0.4 % (0.0-1.0); EOS % 0.1 % (0.0-3.0); HEMATOCRIT 34.4 % (36.0-47.0); HEMOGLOBIN 11.2 g/dl (12.0-15.5); LYMPH # 0.9 10^3/uL (1.5-5.0); LYMPH % 11.6 % (24.0-44.0); MEAN CORPUSCULAR HEMOGLOBIN 31.8 pg (27.0-33.0); MEAN CORPUSCULAR HGB CONC 32.6 g/dl (32.0-36.5); MEAN CORPUSCULAR VOLUME 97.7 fl (80.0-96.0); MONO # 0.5 10^3/uL (0.0-0.8); MONO % 7.3 % (2.0-8.0); NEUTROPHILS # 5.9 10^3/uL (1.5-8.5); NEUTROPHILS % 80.3 % (36.0-66.0); PLATELET COUNT, AUTOMATED 212 10^3/uL (150-450); RED BLOOD COUNT 3.52 10^6/uL (4.00-5.40); WHITE BLOOD COUNT 7.4 10^3/uL (4.0-10.0)
[2020-09-29 09:05] LABS: ALBUMIN 3.1 GM/DL (3.2-5.2); ALT/SGPT 36 U/L (12-78); BILIRUBIN,TOTAL 0.2 MG/DL (0.2-1.0); BLOOD UREA NITROGEN 7 MG/DL (7-18); CALCIUM LEVEL 9.2 MG/DL (8.8-10.2); CARBON DIOXIDE LEVEL 27 MEQ/L (21-32); CHLORIDE LEVEL 103 MEQ/L (98-107); GLOMERULAR FILTRATION RATE > 60.0 (>45); GLUCOSE, FASTING 161 MG/DL (70-100); MAGNESIUM LEVEL 1.6 MG/DL (1.8-2.4); POTASSIUM SERUM 3.5 MEQ/L (3.5-5.1); SODIUM LEVEL 136 MEQ/L (136-145); TOTAL PROTEIN 7.4 GM/DL (6.4-8.2)
--- NOTE | 2020-09-29 09:09 | IPNPDOC ---
Date Seen The patient was seen on 09/29/20. Progress Note SUBJECTIVE: This is hospital day #1. Pt reports that her pain is not well- controlled on the Dilaudid and is requesting q4h pain medication. Nursing staff reports that although there were no overnight events, she has refused the Tylenol and continues to ask for Dilaudid. NG tube is in place and there has not been significant output. Pt denies heart palpitation, chest pain, and shortness of breath at this time. She continues to report diffuse generalized abdominal pain at a 10/10. OBJECTIVE PHYSICAL EXAMINATION: VITAL SIGNS: Please see below. GENERAL: pt appears in mild distress, comfortably lying upright in bed, alert and oriented x4 HEENT: normocephalic, atraumatic, nonicteric sclera, nares patent, oropharyngeal mucosa moist CARDIOVASCULAR: RRR, DOT auscultated. RESPIRATORY: CTAB, no wheezes, rales, rhonchi. ABDOMINAL: diffusely tender even with very light touch and no pressure applied, bowel sounds diminished EXTREMITIES: no clubbing, cyanosis, or edema NEUROLOGICAL: CN3-12 intact PSYCHOLOGICAL: flattened affect, alert and oriented x 3, cooperative throughout exam and interview. LABORATORY DATA, IMAGING STUDIES, MICROBIOLOGY: Please see below. ASSESSMENT AND PLAN: This is a 60YOF patient with a past medical history of multiple hospitalizations secondary to decreased ostomy bag output, abdominal pain, and intractable vomiting and IDDM type II. #Intractable abdominal pain Due to patient's allergies to contrast CT abdominal arteries and CT abdomen with contrast could not be ordered. Complete abdominal ultrasound has been ordered for this a.m. Patient is nothing by mouth at this time. NG tube placed with low intermittent suctioning to be adjusted by monitoring NG tube output. Occult blood stool test was negative. Continue IV Dilaudid 1 mg every 6 hours as needed for pain. Acetaminophen 650 mg every 6 hours as needed for fever or pain Blood cultures ordered. UA with reflex to culture ordered. MRSA PCR screen negative. Repeat lactic acid decreased to 2.1 (on admission was 4.6). Continue to monitor CMP. Gastroenterology consulted, inpatient service team appreciates input. Surgical team consulted, inpatient service team appreciates input. #Vomiting. Continue IV Zofran every 6 hours. NG tube in place, low intermittent suctioning while monitoring NG tube output, to fix suctioning accordingly. Start IV 40 mg Protonix twice a day Keep nothing by mouth with medication Keep strictly nothing by mouth after midnight for Abdominal ultrasound Since patient is nothing by mouth fall risk precautions in place. Assisted ambulation only. Continue monitoring I's and O's, every 4 hours #Decreased hemoglobin/hematocrit levels Continue monitoring H&H every 6 hours. Patient's hemoglobin level remains stable. #Intra-abdominal infection prophylaxis. Continue ceftriaxone and metronidazole, this is day 2 (continue for 5 days, per Dr. Jean) #Chronic pain. Continuing home Dilaudid in the form of IV Dilaudid 1 mg every 6 hours for pain out of proportion to exam. See above. #Insulin-dependent diabetes mellitus type 2. Hold Levemir at this time due to patient being nothing by mouth Sliding scale insulin every 6 hours due to nothing by mouth in place Hypoglycemic protocol in place. DVT prophylaxis: Teds and sequentials Disposition: Pending input from surgical team. VS, I&O, 24H, Fishbone Vital Signs/I&O Vital Signs Date Time Temp Pulse Resp B/P (MAP) Pulse Ox O2 Delivery O2 Flow Rate FiO2 09/29/20 08:00 97.0 94 18 145/65 (91) 96 Room Air I&O- Last 24 Hours up to 6 AM 09/29/20 06:00 Intake Total 1500 ml Output Total 635 ml Balance 865 ml Laboratory Data 24H LABS Laboratory Tests 2 09/28/20 09:37: Immature Granulocyte % (Auto) 0.3, Neutrophils (%) (Auto) 68.7H, Lymphocytes (%) (Auto) 21.8L, Monocytes (%) (Auto) 8.2H, Eosinophils (%) (Auto) 0.7, Basophils (%) (Auto) 0.3, Neutrophils # (Auto) 4.0, Lymphocytes # (Auto) 1.3L, Monocytes # (Auto) 0.5, Eosinophils # (Auto) 0.0, Basophils # (Auto) 0.0, Nucleated Red Blood Cells % (auto) 0.0, Anion Gap 10, Glomerular Filtration Rate > 60.0, Lactic Acid Level 4.6*H, Calcium Level 8.9, Total Bilirubin 0.2, Direct Bilirubin < 0.1, Aspartate Amino Transf (AST/SGOT) 65H, Alanine Aminotransferase (ALT/SGPT) 42, Alkaline Phosphatase 90, Total Protein 7.3, Albumin 3.0L, Albumin/Globulin Ratio 0.7L, Lipase 73 09/28/20 13:05: Coronavirus (COVID-19)(PCR) NEGATIVE, Influenza Type A (RT-PCR) NEGATIVE, Influenza Type B (RT-PCR) NEGATIVE, Respiratory Syncytial Virus (PCR) NEGATIVE 09/28/20 14:37: Lactic Acid Followup at 4 Hours 2.1*H 09/28/20 16:44: Bedside Glucose (Misc Panel) 181H 09/28/20 17:40: Methicillin-Resist S.aureus DNA PCR NOT DETECTED 09/28/20 18:11: Urine Color YELLOW, Urine Appearance HAZY, Urine pH 5.0, Urine Specific [place] 1.017, Urine Protein NEGATIVE, Urine Glucose (UA) 2+H, Urine Ketones 1+H, Urine Blood NEGATIVE, Urine Nitrite NEGATIVE, Urine Bilirubin NEGATIVE, Urine Urobilinogen 0.2, Urine Leukocyte Esterase NEGATIVE, Urine WBC (Auto) 2, Urine RBC (Auto) 1, Urine Hyaline Casts (Auto) 0, Urine Bacteria (Auto) 1+H, Urine Squamous Epithelial Cells 7, Urine Mucus (Auto) SMALL, Urine Sperm (Auto) 09/28/20 23:50: Bedside Glucose (Misc Panel) 189H 09/29/20 08:05: Immature Granulocyte % (Auto) 0.3, Neutrophils (%) (Auto) 80.3H, Lymphocytes (%) (Auto) 11.6L, Monocytes (%) (Auto) 7.3, Eosinophils (%) (Auto) 0.1, Basophils (%) (Auto) 0.4, Neutrophils # (Auto) 5.9, Lymphocytes # (Auto) 0.9L, Monocytes # (Auto) 0.5, Eosinophils # (Auto) 0.0, Basophils # (Auto) 0.0, Nucleated Red Blood Cells % (auto) 0.3H CBC/BMP Laboratory Tests 09/28/20 09:37 09/28/20 20:57 09/28/20 22:20 09/29/20 08:05 Microbiology Microbiology 09/28/20 Stool Occult Blood (JOSY) - Final, Complete 09/28/20 Blood Culture, Received Pending GME ATTESTATION GME ATTESTATION My faculty preceptor for this patient encounter was physically present during the encounter and was fully available. All aspects of the patient interview, examination, medical decision making process, and medical care plan development were reviewed and approved by the faculty preceptor. The faculty preceptor is aware and concurs with the plan as stated in the body of this note and will attest to such by his/her cosignature. ATTENDING NOTE I, Bacilio Lomeli, have independently examined this patient and performed my own physical exam, as well as reviewed the documentation and edited where necessary. I have discussed in detail with the resident / student the findings and plan of treatment as documented by the resident / student and edited their note. I agree with their findings and treatment plan and have edited their documentation. I will continue to follow the patient during this hospital stay. Pedro Pal DO Sep 29, 2020 09:09 BACILIO LOMELI MD Sep 29, 2020 13:28
--- NOTE | 2020-09-29 10:15 | REP ---
INDICATION: abdominal pain, vomiting, rule out mesenteric ischemia COMPARISON: None. TECHNIQUE: Real time wolfe scale ultrasound examination using curved array transducer. FINDINGS: Limited evaluation demonstrates relatively normal appearance of the visualized liver with generalized fatty infiltration. The ill-defined heterogeneous area noted on CT is not visible by current ultrasound although evaluation is significantly limited and relatively nondiagnostic due to multiple factors including patient's inability to cooperate from pain and postsurgical changes. IMPRESSION: Significantly limited examination. No obvious liver lesion identified by current ultrasound. Short-term follow-up pre and postcontrast CT may be warranted. <Electronically signed by Darius Roth > 09/29/20 [id number]
--- NOTE | 2020-09-29 10:43 | CR.PDOC ---
General Date of Consultation: Sep 29, [address] Al REASON FOR CONSULTATION/CHIEF COMPLAINT: Abdominal pain HISTORY OF PRESENT ILLNESS: Patient is a 60-year-old female with history of small bowel resection and total colectomy with ostomy placement. The patient reported to the emergency department 09/28/20 with intractable vomiting for 1 day, reported a small amount of blood in her ostomy bag, and diffuse abdominal pain. Admission was arranged. Gen. surgery was consulted ALLERGIES: Please see below. HOME MEDICATIONS: Please see below. PAST MEDICAL HISTORY: IDDM Reflex sympathetic dystrophy. Status post ostomy placement PAST SURGICAL HISTORY: Total hysterectomy, at age 21. AV fistula repair, left leg 1988 Cholecystectomy 1989 Small bowel obstruction. 2001. Abdominal hernia repair 2004 Ventral hernia repair 2009 Dorsal column stimulator taken out and new one implanted Small bowel resection and ventral hernia repair (with [place]) Ileostomy ([place]) Total colectomy with ostomy bag placement. Cyst removal from right nostril, September 2012. Repair of hernias and stomal repair Parastomal hernia repair ([place]) Hernia and stoma repair ([place]) [id number] placement 2017 Hernia repair x 4 stoma reversal, October 2017 Battery replacement for dorsal column stimulator February 2018 FAMILY HISTORY: Father: Kidney cancer Mother: Multiple myeloma SOCIAL HISTORY: She denies alcohol use, denies smoking history, denies illicit drug use. REVIEW OF SYSTEMS: As noted in HPI otherwise 10 point review of systems unremarkable. PHYSICAL EXAMINATION: VITAL SIGNS: Please see below. GENERAL APPEARANCE: Resting in bed, no acute distress HEENT: NG tube in place RESPIRATORY: Clear to auscultation CARDIOVASCULAR: S1-S2 regular rate rhythm ABDOMEN: Soft, distended, generally tender with palpation, ostomy pink with yellowish brown stool noted in the bag. EXTREMITIES: No edema. Abdomen/pelvis CT 09/28/2020 1. Vague heterogeneous changes suggested within the left hepatic lobe. Consider contrast-enhanced CT, MRI, or abdominal ultrasound for further investigation. 2. No further acute abdominopelvic pathology appreciated. 3. Postsurgical changes as described above. 4. No ascites, focal inflammatory stranding, adenopathy, or free air. ASSESSMENT/PLAN: Abdominal pain, nausea, vomiting. The patient is reviewed and examined as per Dr. Al. Vomited twice 09/28, no vomiting so far today. Stool occult blood is negative. WBC 7.4, hemoglobin 11.2 Nothing by mouth NG tube with 175 mL drainage yesterday. 225 mL documented so far today. IV fluids, IV antibiotics as per hospitalist. The patient's Imaging is reviewed by Dr. Al, with no obstruction, no acute abnormality noted. No surgical intervention would be recommended at this time. Continue with supportive care. Continue to monitor. Vital Signs/I&O Vital Signs Date Time Temp Pulse Resp B/P (MAP) Pulse Ox O2 Delivery O2 Flow Rate FiO2 09/29/20 09:18 19 09/29/20 08:00 97.0 94 145/65 (91) 96 Room Air I&O- Last 24 Hours up to 6 AM 09/29/20 06:00 Intake Total 1500 ml Output Total 635 ml Balance 865 ml Laboratory Data Labs 24H Laboratory Tests 2 09/28/20 13:05: Coronavirus (COVID-19)(PCR) NEGATIVE, Influenza Type A (RT-PCR) NEGATIVE, Influenza Type B (RT-PCR) NEGATIVE, Respiratory Syncytial Virus (PCR) NEGATIVE 09/28/20 14:37: Lactic Acid Followup at 4 Hours 2.1*H 09/28/20 16:44: Bedside Glucose (Misc Panel) 181H 09/28/20 17:40: Methicillin-Resist S.aureus DNA PCR NOT DETECTED 09/28/20 18:11: Urine Color YELLOW, Urine Appearance HAZY, Urine pH 5.0, Urine Specific [place] 1.017, Urine Protein NEGATIVE, Urine Glucose (UA) 2+H, Urine Ketones 1+H, Urine Blood NEGATIVE, Urine Nitrite NEGATIVE, Urine Bilirubin NEGATIVE, Urine Urobilinogen 0.2, Urine Leukocyte Esterase NEGATIVE, Urine WBC (Auto) 2, Urine RBC (Auto) 1, Urine Hyaline Casts (Auto) 0, Urine Bacteria (Auto) 1+H, Urine Squamous Epithelial Cells 7, Urine Mucus (Auto) SMALL, Urine Sperm (Auto) 09/28/20 23:50: Bedside Glucose (Misc Panel) 189H 09/29/20 08:05: Immature Granulocyte % (Auto) 0.3, Neutrophils (%) (Auto) 80.3H, Lymphocytes (%) (Auto) 11.6L, Monocytes (%) (Auto) 7.3, Eosinophils (%) (Auto) 0.1, Basophils (%) (Auto) 0.4, Neutrophils # (Auto) 5.9, Lymphocytes # (Auto) 0.9L, Monocytes # (Auto) 0.5, Eosinophils # (Auto) 0.0, Basophils # (Auto) 0.0, Nucleated Red Blood Cells % (auto) 0.3H, Anion Gap 6L, Glomerular Filtration Rate > 60.0, Calcium Level 9.2, Magnesium Level 1.6L, Total Bilirubin 0.2, Aspartate Amino Transf (AST/SGOT) 36, Alanine Aminotransferase (ALT/SGPT) 36, Alkaline Phosphatase 96, Total Protein 7.4, Albumin 3.1L, Albumin/Globulin Ratio 0.7L CBC/BMP Laboratory Tests 09/28/20 20:57 09/28/20 22:20 09/29/20 08:05 Microbiology Microbiology 09/28/20 Stool Occult Blood (JOSY) - Final, Complete 09/28/20 Blood Culture, Received Pending Allergies Coded Allergies: Contrast Media (Verified Allergy, Severe, throat swelling, 12/21/19) latex (Verified Allergy, Severe, throat closes, 12/21/19) Penicillins (Verified Allergy, Intermediate, hives, 12/21/19) Sulfa (Sulfonamide Antibiotics) (Verified Allergy, Intermediate, hives, 12/21/19) adhesive tape (Verified Allergy, Intermediate, paper tape - blisters, hives, 12/21/19) azithromycin (Verified Allergy, Intermediate, hives, 12/21/19) ciprofloxacin (Verified Allergy, Intermediate, hives, 12/21/19) colchicine (Verified Allergy, Intermediate, hives, 01/13/20) gatifloxacin (Verified Allergy, Intermediate, hives, 12/21/19) nitrofurantoin (Verified Allergy, Intermediate, hives, 12/21/19) oxycodone (Verified Allergy, Intermediate, hives, 12/21/19) strawberry (Verified Allergy, Intermediate, hives, 12/21/19) tomato (Verified Allergy, Intermediate, hives, 12/21/19) Grape (Verified Allergy, Unknown, GRAPE JUICE, 12/21/19) grape (Verified Allergy, Unknown, 10/20/19) ipratropium (Verified Allergy, Unknown, 10/20/19) iodine (Verified Adverse Reaction, Severe, "out of body experience" eyes roll to back of head, 12/21/19) theophylline (Verified Adverse Reaction, Severe, seizures, 12/21/19) droperidol (Verified Adverse Reaction, Intermediate, "out of body", eyes roll back in head, 12/21/19) lidocaine (Verified Adverse Reaction, Intermediate, increases HR when applied to upper body, 12/21/19) lorazepam (Verified Adverse Reaction, Intermediate, hallucinations, alters mind, 12/21/19) meperidine (Verified Adverse Reaction, Intermediate, "out of body", shaky, 12/21/19) morphine (Verified Adverse Reaction, Intermediate, severe headache with large doses, 12/21/19) pregabalin (Verified Adverse Reaction, Intermediate, anxiety, shaking, 12/21/19) albuterol (Verified Adverse Reaction, Mild, shaky, 12/21/19) aspirin (Verified Adverse Reaction, Mild, ulcers - full strength only, 12/21/19) baclofen (Verified Adverse Reaction, Mild, shaking, 12/21/19) chlorpromazine (Verified Adverse Reaction, Mild, "out of body experience", 01/13/20) codeine (Verified Adverse Reaction, Mild, "out of body", 01/13/20) fentanyl (Verified Adverse Reaction, Mild, nervous, 12/21/19) fluphenazine (Verified Adverse Reaction, Mild, "out of body experience", 01/13/20) gabapentin (Verified Adverse Reaction, Mild, "very nervous/Anxious", 01/13/20) hydrocodone (Verified Adverse Reaction, Mild, confusion (Vicodin), 01/13/20) mesoridazine (Verified Adverse Reaction, Mild, "out of body experience", 01/13/20) midazolam (Verified Adverse Reaction, Mild, nervous, 12/21/19) perphenazine (Verified Adverse Reaction, Mild, "out of body experience", 01/13/20) prochlorperazine (Verified Adverse Reaction, Mild, "out of body experience", 01/13/20) promethazine (Verified Adverse Reaction, Mild, "out of body" - phenothiazines, 01/13/20) propoxyphene (Verified Adverse Reaction, Mild, "out of body", 01/13/20) red dye (Verified Adverse Reaction, Mild, not a true allergy, please see comments, 12/21/19) Patient states that she becomes anxious if the contents of her ostomy are red, so she tries to avoid. tiagabine (Verified Adverse Reaction, Mild, nervous, 12/21/19) tramadol (Verified Adverse Reaction, Mild, vomiting, 01/13/20) trifluoperazine (Verified Adverse Reaction, Mild, "out of body experience", 01/13/20) magnesium citrate (Verified Adverse Reaction, Unknown, states it makes her stomach bloat from the carbination, 01/13/20) Home Medications Scheduled Amitriptyline HCl (Amitriptyline HCl) 50 Mg Tab, 150 MG PO QHS, (Reported) Amitriptyline HCl (Amitriptyline HCl) 50 Mg Tab, 50 MG PO DAILY, (Reported) Ammonium Lactate (Ammonium Lactate) 12% Lotion, 1 APLCT TOP DAILY, (Reported) TO BOTH FEET Cholecalciferol (Vitamin D3) (Vitamin D3) 1,000 Unit Tablet, 1,000 UNITS PO TORY Y, (Reported) Dicyclomine HCl (Dicyclomine HCl) 10 Mg Capsule, 10 MG PO QID, (Reported) Estradiol (Estrace) 42.5 Gm Cream.appl, 1 GRAM PV QHS, (Reported) Insulin Detemir (Levemir Flextouch) 100 Unit/1 Ml Insuln.pen, 40 UNITS SQ DAILY, (Reported) Lactulose (Lactulose) 10 Gm/15 Ml Faisal, 30 ML PO QID, (Reported) Liraglutide (Victoza 2-Eulalio) 0.6 Mg/0.1 Ml Pen.injctr, 1.8 MG SC DAILY, (Reported) Mesalamine (Canasa) 1,000 Mg Supp.rect, 1,000 MG MS QHS, (Reported) Metoclopramide HCl (Reglan) 10 Mg Tablet, 10 MG PO AC, (Reported) Mupirocin (Mupirocin) 2 % Oint...g., 1 DOSE TOP TID, (Reported) TO NARES Ondansetron HCl/Pf (Ondansetron HCl 4 mg/2 ml Vial) 4 Mg/2 Ml Vial, 4 MG IV BID, (Reported) Sennosides/Docusate Sodium (Senna-S Tablet) 1 Each Tablet, 1 TAB PO DAILY, (Reported) Simethicone (Simethicone) 80 Mg Tab.chew, 160 MG PO ACHS, (Reported) Sucralfate (Sucralfate) 1 Gm Tablet, 1 GM PO BID, (Reported) Scheduled PRN Albuterol Sulfate (Albuterol Sulfate Hfa) 8.5 Gm Hfa.aer.ad, 2 PUFFS INH Q4H PRN for SHORTNESS OF BREATH, (Reported) Hydromorphone HCl (Dilaudid) 2 Mg Tablet, 2 MG PO Q6H PRN for PAIN LEVEL 6-10, (Reported) Ipratropium/Albuterol Sulfate (Iprat-Albut 0.5-3(2.5) mg/3 ml) 3 Ml Ampul.neb, 1 FAISAL INH Q6H PRN for SHORTNESS OF BREATH, (Reported) Nystatin (Nystatin Powder) 15 Gm Powder, 1 APLCT TOP BID PRN for REDNESS/IRRITATION, (Reported) APPLY AROUND STOMA UNTIL IRRITATION HEALS Triamcinolone Acet (Triamcinolone Acetonide 0.1% Crm) 80 Gm Cream..g., 1 DOSE TOP BID PRN for RASH, (Reported) APPLY TO FACE Afshan Ann Sep 29, 2020 10:43
[2020-09-29 15:03] LABS: HEMATOCRIT 35.9 % (36.0-47.0); HEMOGLOBIN 11.7 g/dl (12.0-15.5)
[2020-09-29] MEDS: MAG SULF 1GM/100ML (MAG RUN) 1 GM in IV 1 EA IV SCH ×2 (15:16→16:23)
[2020-09-29] MEDS: HYDROMORPHONE HCL 0.5 MG/ 0.5 ML SYRINGE (J1170 PER 1) IV PRN ×2 (15:37→21:56)
[2020-09-29] MEDS: cefTRIAXone SOD 1 GM in D5W MINI-BAG PLUS 50 ML IV SCH (18:00)
[2020-09-29 21:45] LABS: HEMATOCRIT 35.9 % (36.0-47.0); HEMOGLOBIN 11.7 g/dl (12.0-15.5)
[2020-09-30] VITALS (12 sets, daily range): BP systolic 125–156; BP diastolic 58–73; O2SAT 95–99
[2020-09-30] MEDS: metroNIDAZOLE 500 MG in IV 1 EA IV SCH ×3 (00:09→15:00)
[2020-09-30] MEDS: HYDROMORPHONE HCL 0.5 MG/ 0.5 ML SYRINGE (J1170 PER 1) IV PRN ×4 (04:16→23:35)
[2020-09-30 04:32] LABS: HEMATOCRIT 34.4 % (36.0-47.0); HEMOGLOBIN 11.2 g/dl (12.0-15.5)
[2020-09-30] MEDS: ONDANSETRON 4MG/2ML VIAL IV PRN ×3 (04:34→18:36)
[2020-09-30] MEDS: HumaLOG INSULIN (NovoLOG) PER UNIT SC SCH ×4 (06:11→18:33)
[2020-09-30 07:44] LABS: BASO % 0.3 % (0.0-1.0); EOS # 0.1 10^3/uL (0.0-0.5); EOS % 0.7 % (0.0-3.0); LYMPH # 1.1 10^3/uL (1.5-5.0); LYMPH % 15.2 % (24.0-44.0); MEAN CORPUSCULAR HEMOGLOBIN 32.2 pg (27.0-33.0); MEAN CORPUSCULAR VOLUME 100.6 fl (80.0-96.0); MONO # 0.5 10^3/uL (0.0-0.8); MONO % 7.5 % (2.0-8.0); NEUTROPHILS # 5.4 10^3/uL (1.5-8.5); NEUTROPHILS % 76.2 % (36.0-66.0); PLATELET COUNT, AUTOMATED 176 10^3/uL (150-450); RED BLOOD COUNT 3.48 10^6/uL (4.00-5.40); WHITE BLOOD COUNT 7.1 10^3/uL (4.0-10.0)
[2020-09-30 08:00] LABS: BLOOD UREA NITROGEN 6 MG/DL (7-18); CALCIUM LEVEL 8.4 MG/DL (8.8-10.2); CARBON DIOXIDE LEVEL 27 MEQ/L (21-32); CHLORIDE LEVEL 104 MEQ/L (98-107); CREATININE FOR GFR 0.42 MG/DL (0.55-1.30); GLOMERULAR FILTRATION RATE > 60.0 (>45); GLUCOSE, FASTING 177 MG/DL (70-100); MAGNESIUM LEVEL 1.9 MG/DL (1.8-2.4); POTASSIUM SERUM 3.6 MEQ/L (3.5-5.1); SODIUM LEVEL 137 MEQ/L (136-145)
[2020-09-30] MEDS: ACETAMINOPHEN TAB 650MG DOSE (2X325MG) PO PRN ×2 (09:46→14:54)
[2020-09-30] MEDS: VITAMIN D 1,000 INTERNATIONAL UNITS TABLET PO SCH (09:46)
[2020-09-30] MEDS: PANTOPRAZOLE 40MG VIAL (C9113 PER 1) IV SCH ×2 (09:53→21:22)
--- NOTE | 2020-09-30 09:54 | IPNPDOC ---
Text Note Date of Service The patient was seen on 09/30/20. NOTE Subjective: Patient is a 60-year-old female with a PMHx of multiple hospitalizations 2/2 , nausea, vomiting and abdominal pain. Patient presented to emergency room with nausea and vomiting associated with abdominal pain. Patient was admitted to the hospital service for suspected ileus. General surgery and gastroenterology were called on consultation. Patient was seen and examined at the bedside. Patient has had an NG tube placed on admission with very minimal output noted. Currently, she denies any further episodes of nausea or vomiting. Still reports abdominal discomfort. Denies any chest pain, shortness of breath or palpitations. Objective: Vitals (See below) General: Lying in bed, appears comfortable, AAOx3 HEENT: NC, AT, NG tube present CVS: +S1S2 Lungs: Fair air entry b/l, no wheezes, rales or rhonchi Abdomen: Soft, ND, tenderness noted on initial palpation, however on continuation palpation, tenderness seems to subside, colostomy noted Extremities: - Edema, - Calf tenderness Imaging: CT abdomen / pelvis 09/28: 1. Vague heterogeneous changes suggested within the left hepatic lobe. Consider contrast-enhanced CT, MRI, or abdominal ultrasound for further invest igation. 2. No further acute abdominopelvic pathology appreciated. 3. Postsurgical changes as described above. 4. No ascites, focal inflammatory stranding, adenopathy, or free air. US abdomen 09/29: Significantly limited examination. No obvious liver lesion identified by current ultrasound. Short-term follow-up pre and postcontrast CT may be warranted. Assessment and plan: Intractable nausea / vomiting / abdominal pain - possibly 2/2 ileus, less likely 2/2 SBO - Clinically patient appears to have had improvement of her abdominal discomfort - Physical reveals tenderness, however, it subsides as you continue palpation - No leukocytosis; improvement of lactic acidosis - Imaging noted above - c/w Ceftriaxone / Flagyl (Day #3) - c/w IV fluids while patient remains NPO - General surgery on consultation; appreciate their input Normocytic anemia - Hg remains stable - Occult blood in stool negative - Will continue to follow Chronic pain - c/w Dilaudid for now IDDM2 - Will hold Levemir - c/w ISS q6h while NPO GI prophylaxis - c/w Protonix DVT prophylaxis - c/w TEDs/Sequentials Disposition: - Will be evaluated by surgical team - Awaiting clinical improvement VSDario, I+O VSDario I+O Laboratory Tests 09/29/20 14:52 09/29/20 21:34 09/30/20 04:20 Vital Signs Date Time Temp Pulse Resp B/P (MAP) Pulse Ox O2 Delivery O2 Flow Rate FiO2 09/30/20 08:00 97.7 90 14 141/67 (91) 95 Room Air 09/30/20 05:00 2.0 I&O- Last 24 Hours up to 6 AM 09/30/20 05:59 Intake Total 0 ml Output Total 1275 ml Balance -1275 ml HALEIGH LOMELI MD Sep 30, 2020 09:54
[2020-09-30] MEDS: NS 1,000 ML IV SCH (16:05)
[2020-09-30] MEDS: cefTRIAXone SOD 1 GM in D5W MINI-BAG PLUS 50 ML IV SCH (16:17)
[2020-10-01] MEDS: metroNIDAZOLE 500 MG in IV 1 EA IV SCH ×2 (00:12→08:50)
[2020-10-01] MEDS: HumaLOG INSULIN (NovoLOG) PER UNIT SC SCH ×2 (00:12→05:47)
[2020-10-01] MEDS: ONDANSETRON 4MG/2ML VIAL IV PRN ×2 (02:09→08:55)
[2020-10-01] MEDS: HYDROMORPHONE HCL 0.5 MG/ 0.5 ML SYRINGE (J1170 PER 1) IV PRN ×2 (05:46→12:54)
[2020-10-01] MEDS: NS 1,000 ML IV SCH (05:46)
[2020-10-01 06:00] VITALS: BP 124/79
[2020-10-01] MEDS ORDERED: SODIUM CHLORIDE 0.9% INJ 10 ML SYR IV PRN (07:55)
[2020-10-01 08:07] LABS: BASO % 0.5 % (0.0-1.0); EOS # 0.1 10^3/uL (0.0-0.5); HEMOGLOBIN 11.1 g/dl (12.0-15.5); LYMPH # 1.2 10^3/uL (1.5-5.0); LYMPH % 19.5 % (24.0-44.0); MEAN CORPUSCULAR HEMOGLOBIN 32.2 pg (27.0-33.0); MEAN CORPUSCULAR HGB CONC 32.6 g/dl (32.0-36.5); MEAN CORPUSCULAR VOLUME 98.6 fl (80.0-96.0); MONO # 0.5 10^3/uL (0.0-0.8); MONO % 8.9 % (2.0-8.0); NEUTROPHILS # 4.2 10^3/uL (1.5-8.5); NEUTROPHILS % 69.8 % (36.0-66.0); PLATELET COUNT, AUTOMATED 206 10^3/uL (150-450); RED BLOOD COUNT 3.45 10^6/uL (4.00-5.40); WHITE BLOOD COUNT 6.1 10^3/uL (4.0-10.0)
[2020-10-01 08:41] LABS: BLOOD UREA NITROGEN 5 MG/DL (7-18); CALCIUM LEVEL 8.4 MG/DL (8.8-10.2); CARBON DIOXIDE LEVEL 24 MEQ/L (21-32); CHLORIDE LEVEL 106 MEQ/L (98-107); CREATININE FOR GFR 0.36 MG/DL (0.55-1.30); GLOMERULAR FILTRATION RATE > 60.0 (>45); GLUCOSE, FASTING 155 MG/DL (70-100); MAGNESIUM LEVEL 1.8 MG/DL (1.8-2.4); POTASSIUM SERUM 3.5 MEQ/L (3.5-5.1); SODIUM LEVEL 138 MEQ/L (136-145)
[2020-10-01] MEDS: VITAMIN D 1,000 INTERNATIONAL UNITS TABLET PO SCH (08:49)
[2020-10-01] MEDS: PANTOPRAZOLE 40MG VIAL (C9113 PER 1) IV SCH (08:49)
[2020-10-01] MEDS: ACETAMINOPHEN TAB 650MG DOSE (2X325MG) PO PRN (08:49)
[2020-10-01] MEDS ORDERED: SODIUM CHLORIDE 0.9% INJ 10 ML SYR IV SCH (09:00)
[2020-10-01] MEDS ORDERED: CEFD1CAP8 PO (10:05)
[2020-10-01] MEDS ORDERED: FLAG375C PO (10:05)
--- NOTE | 2020-10-01 10:17 | DS.PDOC ---
Discharge Summary General Date of Admission Sep 28, 2020 at 14:05 Date of Discharge 10/01/2020 Discharge Summary PROCEDURES PERFORMED DURING STAY: [None]. ADMITTING DIAGNOSES / DISCHARGE DIAGNOSES: Intractable nausea / vomiting / abdominal pain - possibly 2/2 ileus, less likely 2/2 SBO Normocytic anemia Chronic pain IDDM2 Chronic pain GI prophylaxis DVT prophylaxis COMPLICATIONS/CHIEF COMPLAINT: Nausea / Vomiting / Abdominal pain HISTORY OF PRESENT ILLNESS: Patient is a 60-year-old female with a PMHx of multiple hospitalizations 2/2 , nausea, vomiting and abdominal pain. Patient presented to emergency room with nausea and vomiting associated with abdominal pain. Patient was admitted to the hospital service for suspected ileus. General surgery and gastroenterology were called on consultation. Patient was seen and examined at the bedside. Patient's NG tube was discontinued yesterday. She has not expressed any further nausea or vomiting. Output from her ostomy has remained adequate. She denies any chest pain, shortness breath, palpitations, or urinary discomfort. HOSPITAL COURSE: Intractable nausea / vomiting / abdominal pain - possibly 2/2 ileus, less likely 2/2 SBO - Since NG tube was removed on 09/30, patient does not express any further nausea, vomiting - Ostomy has adequate stool output - No leukocytosis; improvement of lactic acidosis - Imaging noted above - c/w Ceftriaxone / Flagyl (Day #4) - Patient has tolerated a clear liquid diet; she will be advanced to a low residue diet and subsequently discharge if she can tolerate it - General surgery on consultation; case discussed surgical intervention is required at this time; will have outpatient follow-up with surgical specialty in [place], [place] Normocytic anemia - Hg remains stable; no transfusions indicated - Occult blood in stool negative Chronic pain - c/w Dilaudid for now based on outpatient regimen IDDM2 - Levemir will be resumed on discharge - c/w ISS Chronic pain - c/w Amitriptyline on discharge GI prophylaxis - c/w Protonix DVT prophylaxis - c/w TEDs/Sequentials DISCHARGE MEDICATIONS: Please see below. ALLERGIES: Please see below. PHYSICAL EXAMINATION ON DISCHARGE: Vitals (See below) General: Patient is sitting up in bed, appears to be comfortable without any acute distress, is awake and alert, oriented 3 HEENT: Normocephalic and atraumatic. NG tube has been removed from yesterday CVS: +S1S2 Lungs: Auscultation reveals fair air entry bilaterally without any evidence of wheezing, crackles or rhonchi Abdomen: Abdomen is soft and nondistended. Ostomy present with adequate stool output. Tenderness is present initially, however, on continued palpation and conversation her abdominal tenderness is not present Extremities: No evidence of edema LABORATORY DATA: Please see below. IMAGING: CT abdomen / pelvis 09/28: 1. Vague heterogeneous changes suggested within the left hepatic lobe. Consider contrast-enhanced CT, MRI, or abdominal ultrasound for further investigation. 2. No further acute abdominopelvic pathology appreciated. 3. Postsurgical changes as described above. 4. No ascites, focal inflammatory stranding, adenopathy, or free air. US abdomen 09/29: Significantly limited examination. No obvious liver lesion identified by current ultrasound. Short-term follow-up pre and postcontrast CT may be warranted. ACTIVITY: [As tolerated]. DISCHARGE PLAN: Follow-up with primary care provider, gastroenterology and general surgery in [place] within the next 7 days Remain compliant with treatment plan and medications Return to the ER if you experience any problems DISPOSITION: Home with services DISCHARGE CONDITION: [Stable]. TIME SPENT ON DISCHARGE: 35 minutes. Vital Signs/I&Os Vital Signs Date Time Temp Pulse Resp B/P (MAP) Pulse Ox O2 Delivery O2 Flow Rate FiO2 10/01/20 06:00 97.5 85 19 124/79 (94) 96 Room Air 09/30/20 05:00 2.0 I&O- Last 24 Hours up to 6 AM 10/01/20 06:00 Intake Total 485 ml Output Total 1525 ml Balance -1040 ml Laboratory Data Labs 24H Laboratory Tests 2 09/30/20 12:03: Bedside Glucose (Misc Panel) 229H 09/30/20 18:07: Bedside Glucose (Misc Panel) 179H 09/30/20 23:41: Bedside Glucose (Misc Panel) 213H 10/01/20 05:25: Bedside Glucose (Misc Panel) 164H 10/01/20 07:53: Immature Granulocyte % (Auto) 0.3, Neutrophils (%) (Auto) 69.8H, Lymphocytes (%) (Auto) 19.5L, Monocytes (%) (Auto) 8.9H, Eosinophils (%) (Auto) 1.0, Basophils (%) (Auto) 0.5, Neutrophils # (Auto) 4.2, Lymphocytes # (Auto) 1.2L, Monocytes # (Auto) 0.5, Eosinophils # (Auto) 0.1, Basophils # (Auto) 0.0, Nucleated Red Blood Cells % (auto) 0.0, Anion Gap 8, Glomerular Filtration Rate > 60.0, Calcium Level 8.4L, Magnesium Level 1.8 CBC/BMP Laboratory Tests 10/01/20 07:53 FSBS Laboratory Tests Test 09/30/20 12:03 09/30/20 18:07 09/30/20 23:41 10/01/20 05:25 Range/Units Bedside Glucose (Misc Panel) 229 179 213 164 80-115 MG/DL Microbiology Microbiology 09/28/20 Stool Occult Blood (JOSY) - Final, Complete 09/28/20 Blood Culture - Preliminary, Resulted No Growth after 48 hours. All Specime... Discharge Medications Scheduled Amitriptyline HCl (Amitriptyline HCl) 50 Mg Tab, 150 MG PO QHS, (Reported) Amitriptyline HCl (Amitriptyline HCl) 50 Mg Tab, 50 MG PO DAILY, (Reported) Ammonium Lactate (Ammonium Lactate) 12% Lotion, 1 APLCT TOP DAILY, (Reported) TO BOTH FEET Cefdinir (Cefdinir) 300 Mg Capsule, 300 MG PO BID Cholecalciferol (Vitamin D3) (Vitamin D3) 1,000 Unit Tablet, 1,000 UNITS PO DAILY, (Reported) Dicyclomine HCl (Dicyclomine HCl) 10 Mg Capsule, 10 MG PO QID, (Reported) Estradiol (Estrace) 42.5 Gm Cream.appl, 1 GRAM PV QHS, (Reported) Insulin Detemir (Levemir Flextouch) 100 Unit/1 Ml Insuln.pen, 40 UNITS SQ DAILY, (Reported) Lactulose (Lactulose) 10 Gm/15 Ml Faisal, 30 ML PO QID, (Reported) Liraglutide (Victoza 2-Eulalio) 0.6 Mg/0.1 Ml Pen.injctr, 1.8 MG SC DAILY, (Reported) Mesalamine (Canasa) 1,000 Mg Supp.rect, 1,000 MG CO QHS, (Reported) Metoclopramide HCl (Reglan) 10 Mg Tablet, 10 MG PO AC, (Reported) Metronidazole (Flagyl) 375 Mg Capsule, 1 CAP PO TID Mupirocin (Mupirocin) 2 % Oint...g., 1 DOSE TOP TID, (Reported) TO NARES Ondansetron HCl/Pf (Ondansetron HCl 4 mg/2 ml Vial) 4 Mg/2 Ml Vial, 4 MG IV BID, (Reported) Sennosides/Docusate Sodium (Senna-S Tablet) 1 Each Tablet, 1 TAB PO DAILY, (Reported) Simethicone (Simethicone) 80 Mg Tab.chew, 160 MG PO ACHS, (Reported) Sucralfate (Sucralfate) 1 Gm Tablet, 1 GM PO BID, (Reported) Scheduled PRN Albuterol Sulfate (Albuterol Sulfate Hfa) 8.5 Gm Hfa.aer.ad, 2 PUFFS INH Q4H PRN for SHORTNESS OF BREATH, (Reported) Hydromorphone HCl (Dilaudid) 2 Mg Tablet, 2 MG PO Q6H PRN for PAIN LEVEL 6-10, (Reported) Ipratropium/Albuterol Sulfate (Iprat-Albut 0.5-3(2.5) mg/3 ml) 3 Ml Ampul.neb, 1 FAISAL INH Q6H PRN for SHORTNESS OF BREATH, (Reported) Nystatin (Nystatin Powder) 15 Gm Powder, 1 APLCT TOP BID PRN for REDNESS/IRRITATION, (Reported) APPLY AROUND STOMA UNTIL IRRITATION HEALS Triamcinolone Acet (Triamcinolone Acetonide 0.1% Crm) 80 Gm Cream..g., 1 DOSE TOP BID PRN for RASH, (Reported) APPLY TO FACE Allergies Coded Allergies: Contrast Media (Verified Allergy, Severe, throat swelling, 12/21/19) latex (Verified Allergy, Severe, throat closes, 12/21/19) Penicillins (Verified Allergy, Intermediate, hives, 12/21/19) Sulfa (Sulfonamide Antibiotics) (Verified Allergy, Intermediate, hives, 12/21/19) adhesive tape (Verified Allergy, Intermediate, paper tape - blisters, hives, 12/21/19) azithromycin (Verified Allergy, Intermediate, hives, 12/21/19) ciprofloxacin (Verified Allergy, Intermediate, hives, 12/21/19) colchicine (Verified Allergy, Intermediate, hives, 01/13/20) gatifloxacin (Verified Allergy, Intermediate, hives, 12/21/19) nitrofurantoin (Verified Allergy, Intermediate, hives, 12/21/19) oxycodone (Verified Allergy, Intermediate, hives, 12/21/19) strawberry (Verified Allergy, Intermediate, hives, 12/21/19) tomato (Verified Allergy, Intermediate, hives, 12/21/19) Grape (Verified Allergy, Unknown, GRAPE JUICE, 12/21/19) grape (Verified Allergy, Unknown, 10/20/19) ipratropium (Verified Allergy, Unknown, 10/20/19) iodine (Verified Adverse Reaction, Severe, "out of body experience" eyes roll to back of head, 12/21/19) theophylline (Verified Adverse Reaction, Severe, seizures, 12/21/19) droperidol (Verified Adverse Reaction, Intermediate, "out of body", eyes roll back in head, 12/21/19) lidocaine (Verified Adverse Reaction, Intermediate, increases HR when applied to upper body, 12/21/19) lorazepam (Verified Adverse Reaction, Intermediate, hallucinations, alters mind, 12/21/19) meperidine (Verified Adverse Reaction, Intermediate, "out of body", shaky, 12/21/19) morphine (Verified Adverse Reaction, Intermediate, severe headache with large doses, 12/21/19) pregabalin (Verified Adverse Reaction, Intermediate, anxiety, shaking, 12/21/19) albuterol (Verified Adverse Reaction, Mild, shaky, 12/21/19) aspirin (Verified Adverse Reaction, Mild, ulcers - full strength only, 12/21/19) baclofen (Verified Adverse Reaction, Mild, shaking, 12/21/19) chlorpromazine (Verified Adverse Reaction, Mild, "out of body experience", 01/13/20) codeine (Verified Adverse Reaction, Mild, "out of body", 01/13/20) fentanyl (Verified Adverse Reaction, Mild, nervous, 12/21/19) fluphenazine (Verified Adverse Reaction, Mild, "out of body experience", 01/13/20) gabapentin (Verified Adverse Reaction, Mild, "very nervous/Anxious", 01/13/20) hydrocodone (Verified Adverse Reaction, Mild, confusion (Vicodin), 01/13/20) mesoridazine (Verified Adverse Reaction, Mild, "out of body experience", 01/13/20) midazolam (Verified Adverse Reaction, Mild, nervous, 12/21/19) perphenazine (Verified Adverse Reaction, Mild, "out of body experience", 01/13/20) prochlorperazine (Verified Adverse Reaction, Mild, "out of body experience", 01/13/20) promethazine (Verified Adverse Reaction, Mild, "out of body" - phenothiazines, 01/13/20) propoxyphene (Verified Adverse Reaction, Mild, "out of body", 01/13/20) red dye (Verified Adverse Reaction, Mild, not a true allergy, please see comments, 12/21/19) Patient states that she becomes anxious if the contents of her ostomy are red, so she tries to avoid. tiagabine (Verified Adverse Reaction, Mild, nervous, 12/21/19) tramadol (Verified Adverse Reaction, Mild, vomiting, 01/13/20) trifluoperazine (Verified Adverse Reaction, Mild, "out of body experience", 01/13/20) magnesium citrate (Verified Adverse Reaction, Unknown, states it makes her stomach bloat from the carbonation, 09/29/20) HALEIGH LOMELI MD Oct 01, 2020 10:17
[2020-10-01] MEDS ORDERED: FLAG500T PO (10:58)
[2020-10-01 11:49] VITALS: O2SAT 99
[2020-10-01] MEDS ORDERED: HumaLOG INSULIN (NovoLOG) PER UNIT SC SCH ×2 (12:00→21:00)
[2020-10-01] MEDS ORDERED: ONDA4INJ4 IV (12:16)
[2020-10-01 14:00] VITALS: BP 138/72
== END 2020-10-01 15:40 | disposition home health service (06) | DRG 247 ==
LOC: EDBD 09:22 → M ED 09:22 → M ED INP 14:05 → ENRESERV 14:20 → M PCU 15:25 → M MSPAV 09-30 17:39
PROVIDERS: ADMIT Internal Medicine; ATTEND Internal Medicine
DX: K56.7 Ileus, unspecified (principal); E11.65 Type 2 diabetes mellitus with hyperglycemia; G90.59 Complex regional pain syndrome I of other specified site; Z66 Do not resuscitate; Z93.3 Colostomy status; Z96.82 Presence of neurostimulator; Z20.822 Contact with and (suspected) exposure to COVID-19; Z79.4 Long term (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; Z79.899 Other long term (current) drug therapy; Z88.0 Allergy status to penicillin; Z88.1 Allergy status to other antibiotic agents; Z88.2 Allergy status to sulfonamides; Z88.5 Allergy status to narcotic agent; Z88.6 Allergy status to analgesic agent; Z91.041 Radiographic dye allergy status; R10.9 Unspecified abdominal pain; D64.9 Anemia, unspecified

== ENCOUNTER → 2020-10-18 | Outpatient (CLI) | payer OTHER ==
[~2020-10-18] MED LIST changes: +ALBU8.5H INH; +FLAG375C PO; +[UNRECOGNIZED DRUG - OTHER] EX
--- NOTE | 2020-10-20 00:29 | ECWPNPC ---
PATIENT NAME: GLENN FELDER : 1960 GENDER: FEMALE VISIT DATE: 10/18/2020 DISCHARGE DATE: 10/18/20 1140 VISIT LOCKED DATE TIME: PHYSICIAN: NAVNEET BRAY RESOURCE: NAVNEET BRAY REASON FOR APPOINTMENT 1. HEADACHE/RESPONDS WELL TO TPI HISTORY OF PRESENT ILLNESS GENERAL: HERE FOR FOLLOW-UP OF CHRONIC AND MYALGIA THAT RESPONDS WELL TO TRIGGER POINT INJECTIONS. CONTINUES TO BENEFIT FROM TRIGGER POINT INJECTIONS DONE SEVERAL MONTHS AGO IN REGARDS TO HEADACHE. SHE IS SCHEDULED TO HAVE INTESTINAL AND ABDOMINAL MUSCLE TRANSPLANT IN [place] IN THE NEXT FEW DAYS. -. FALL RISK SCREENING: SCREENING 2 FALLS THIS YEAR , DID NOT GO THE ER, NO MAJOR INJURIES. PAIN SCREENING: PATIENT HAS A COMPLAINT OF ACUTE OR CHRONIC PAIN :YES INTENSITY OF PAIN (SCALE OF 1 TO 10):0 WHAT DOES YOUR PAIN FEEL LIKE:INTERMITTENT DURATION:ONLY WITH SPECIFIC ACTIVITIES, INTERMITTENT PAIN IS INCREASED BY:OTHERS WEATHER PAIN IS DECREASED BY:OTHERS ONLY TRIGGER POINT NURSING NOTE: -. PAIN CENTER INTAKE QUESTIONS: DO YOU HAVE A HISTORY OF MRSA? :NO DO YOU TAKE A BLOOD THINNERS? :NO DO YOU HAVE ANY BLEEDING DISORDERS? :NO ANY NEW NUMBNESS OR WEAKNESS IN YOUR LEGS OR ARMS? :NO ANY PACEMAKER,DEFIBRILLATOR, OR DORSAL COLUMN STIMULATOR? :YES DCS DO YOU HAVE ANY RASHES OR OPEN SORES? :NO ARE YOU ALLERGIC TO IV DYE? :YES ARE YOU DIABETIC? :YES ANY NEW PROBLEMS WITH YOUR MEDICATIONS? :NO HAVE YOU RECEIVED A VACCINE IN THE PAST 30 DAYS? :NO DO YOU PLAN TO RECEIVE A VACCINE IN THE NEXT 21 DAYS? :NO DO YOU NEED ANY PRESCRIPTION? :NO DO YOU TAKE ANY IMMUNOSUPPRESSIVE MEDICATIONS? :NO DO YOU HAVE ANY KIDNEY OR LIVER DISEASE? :NO IS THERE A CHANCE YOU COULD BE ? :NO ARE YOU BREAST FEEDING? :NO CURRENT MEDICATIONS TAKING MAY SAVAGE BAGS CLEAR VELCRO CLOSER ([id number]) ICD:V55.3 CHANGE NEEDED (EDUARD) TAKING MAY HAVE SAVAGE WAFERS NEW IMAGE SKIN BARRIERS FLATING FLANGES ICD: V55.3 ([id number] 2 1/2 CHANGE NEEDED (EDUARD) TAKING BABY WIPES 1 MISCELLANEOUS DIRECTED TOPICALLY PRN DX:569.62 TAKING SYRINGE 2-3 ML 3 ML MISCELLANEOUS DX: R11.0 INTRAMUSCULARLY TID PRN TAKING HOSPITAL BED USE DAILY DIRECTED DX: K91.2, G89.4, G90.522, N81.84 TAKING GLUCOMETER TESTING 4 TIMES A DAY AND NEEDED DX: , NOTES: MEDICAID #: [id number] TAKING TEST STRIPS - - DX: FOUR TIMES DAILY NEEDED, NOTES: MEDICAID #: [id number] TAKING BENTYL 10 MG CAPSULE 1 CAPSULE ORALLY FOUR TIMES A DAY PRN ABDOMINAL CRAMPING TAKING NEBULIZER COMPRESSOR 1 INH DX: J45.909 EVERY 4 HOURS NEEDED TAKING DICYCLOMINE HCL 10 MG CAPSULE 1 CAPSULE ORALLY FOUR TIMES DAILY, NOTES: SEE BENTYL ABOVE TAKING LANCETS MISC. - MISCELLANEOUS ONE TOUCH DELICA 33G LANCETS DX: FOUR TIMES DAILY NEEDED, NOTES: MEDICAID #: [id number] TAKING CICLOPIROX 8 % SOLUTION 1 APPLICATION TO THE L 5TH FINGERNAIL EXTERNALLY ONCE A DAY, CLEAN OFF WITH AN ALCOHOL PREP PAD ONCE A WEEK TAKING SODIUM CHLORIDE 0.9 % GEL ONE APPLICATION INSIDE THE R NOSTRIL EVERY 2 HRS PRN TAKING SIMETHICONE 80 MG TABLET CHEWABLE 2 TABLETS AFTER MEALS AND AT BEDTIME NEEDED ORALLY THREE TIMES A DAY NEEDED FOR ABDOMINAL PAIN AND DISTENTION TAKING ESTRADIOL 0.1 MG/GM CREAM 1 GRAM VAGINAL DAILY TAKING METOCLOPRAMIDE HCL 10 MG TABLET 1 TABLET BEFORE MEALS AND BEDTIME ORALLY THREE TIMES DAILY BEFORE MEALS TAKING PEN NEEDLES 5/16" 31G X 8 MM MISCELLANEOUS DIRECTED SUBCUTANEOUSLY BID DX: TAKING MEDIPORE H SURGICAL 4"X10YD - TAPE DIRECTED TAKING ALCOHOL PREP PAD 70 % PAD DIRECTED E11.9 TEST BLOOD SUGAR QID PRN TAKING AMMONIUM LACTATE 12 % CREAM 1 APPLICATION EXTERNALLY TWICE A DAY TO FEET TAKING NYSTATIN [id number] UNIT/GM POWDER APPLY TO AFFECTED AREA(S) AROUND STOMA 2 TIMES A DAY DIRECTED UNTIL HEALED TAKING BD PEN NEEDLE SHORT U/F 31G X 8 MM MISCELLANEOUS USE 1 NEEDLE UNDER THE SKIN ONCE A DAY TAKING AQUAPHOR - OINTMENT APPLY TO THE PERINEAL AREA NEEDED EXTERNALLY QID AND NEEDED TAKING PEDIALYTE - SOLUTION 360ML ORALLY TID TAKING PEDIALYTE BOTTLE SOLUTION 330 ML ORALLY THREE TIMES DAILY TAKING MOMETASONE FUROATE 50 MCG/ACT SUSPENSION 2 SPRAYS IN EACH NOSTRIL NASALLY ONCE A DAY TAKING MUPIROCIN 2 % OINTMENT 1 APPLICATION EXTERNALLY THREE TIMES A DAY TAKING ALBUTEROL SULFATE HFA 108 (90 BASE) MCG/ACT AEROSOL SOLUTION 2 PUFFS NEEDED INHALATION EVERY 4 HRS PRN TAKING NEBULIZER/TUBING/MOUTHPIECE - KIT DIRECTED DX: J45.909 EVERY 4 HOURS NEEDED TAKING IPRATROPIUM-ALBUTEROL 0.5-2.5 (3) MG/3ML SOLUTION 3 ML INHALATION EVERY 6 HRS PRN TAKING NYSTATIN [id number] UNIT/GM CREAM 1 APPLICATION EXTERNALLY TWICE A DAY TAKING AMITRIPTYLINE HCL 50 MG TABLET DIRECTED ORALLY 1 TAB IN AM AND 3 TABS AT BEDTIME TAKING SUCRALFATE 1 GM TABLET 1 TABLET ON AN EMPTY STOMACH ORALLY BID TAKING MESALAMINE 1000 MG SUPPOSITORY 1 SUPPOSITORY AT BEDTIME RECTAL ONCE A DAY TAKING LACTULOSE 20 GM/30ML SOLUTION 10 ML ORALLY FOUR TIMES A DAY TAKING VICTOZA 18 MG/3ML SOLUTION PEN-INJECTOR 1.8MG SUBCUTANEOUS DAILY TAKING BACTROBAN 2% OINTMENT APPLY TO THE LEFT LITTLE FINGER APPLIED TOPICALLY TWICE A DAY TAKING CEPHALEXIN 500 MG CAPSULE 1 CAPSULE ORALLY EVERY 6 HRS TAKING MUPIROCIN 2 % OINTMENT APPLY A SMALL AMOUNT TO RIGHT NOSTRIL WITH Q-TIP EXTERNALLY TWICE A DAY TAKING SALINE NASAL SPRAY 0.65 % SOLUTION 1-2 SPRAYS RIGHT NOSTRIL NASALLY 2-3 TIMES A DAY TAKING TRIAMCINOLONE ACETONIDE 0.1 % CREAM APPLY SMALL AMOUNT AFFECTED AREA(S) TWO TIMES A DAY NEEDED TAKING HYDROMORPHONE HCL 2 MG TABLET 1 TABLET NEEDED ORALLY EVERY 6 HRS MDD:4 TAKING ZOFRAN 4 MG/2ML SOLUTION 4 MG INJECTION TID AT LEAST 6H APART TAKING LEVEMIR FLEX TOUCH 100 UNIT/ML SOLUTION 50 UNITS SUBCUTANEOUS IN THE MORNING TAKING NYSTATIN [id number] UNIT/GM POWDER 1 APPLICATION EXTERNALLY FOUR TIMES A DAY MEDICATION LIST REVIEWED AND RECONCILED WITH THE PATIENT PAST MEDICAL HISTORY DM II WITH NEUROPATHY, HBA1C GOAL IS 8.0 FOR NOW B/C OF RISK OF HYPOGLYCEMIA, CONSIDER LOWER IF CONSISTENTLY ACHIEVED ASTHMA HYPERLIPIDEMIA GERD NEPHROLITHIASIS 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 ALLERGIC RHINITIS CHRONIC MAXILLARY SINUSITIS CHRONIC HEADACHES (PAIN MANAGEMENT) CHRONIC PAIN SYNDROME/RSD (PAIN MANAGEMENT) PERSONAL HISTORY OF VENOUS THROMBOSIS AND EMBOLISM (RESOLVED 12/19/2009) ABDOMINAL HERNIA FLEXURAL ECZEMA MUSCLE TRANSPLANT IN [place]ULY ALLERGIES IODINE: NERVES, TIGHT MUSCLES - SIDE EFFECTS GABAPENTIN: NERVOUS SYSTEM,SHAKEY - SIDE EFFECTS GABITRIL: NERVOUS - SIDE EFFECTS KETOROLAC TROMETHAMINE: VOMITING - SIDE EFFECTS MEPERIDINE HCL: OUT OF BODY EXPERIENCE - SIDE EFFECTS MORPHINE SULFATE: SEVERE H/A WITH BIG DOSE - SIDE EFFECTS PROMETHAZINE HCL: OUT OF BODY EXPERIENCE - SIDE EFFECTS TRAMADOL: SHAKES - SIDE EFFECTS OXYCODONE: VOMITING,HIVES - ALLERGY PENICILLIN (FOR ALLERGIES USE ONLY): HIVES - ALLERGY FENTANYL: NERVOUS - SIDE EFFECTS DROPERIDOL: OUT OF BODY - SIDE EFFECTS CODEINE SULFATE: OUT OF BODY EXPERIENCE - SIDE EFFECTS PHENOTHIAZINES: NERVOUS SYSTEM - SIDE EFFECTS QUINOLONES- CIPRO,TEQUIN: HIVES - ALLERGY RED FOOD DYE: RASH - ALLERGY LIDODERM (LICOCANINE): HEART RACES - SIDE EFFECTS SULFA: HIVES - ALLERGY ASPIRIN: HIVES - ALLERGY ATIVAN: HALLUCINATIONS - SIDE EFFECTS AZITHROMYCIN: HIVES - ALLERGY BACLOFEN: AFFECTED NERVOUS SYT - SIDE EFFECTS LYRICA: SHAKES, EVERYTHING IS BLACK - SIDE EFFECTS VICODIN: CONFUSION - SIDE EFFECTS MACROBID: HIVES, BLURRED VISION - ALLERGY READI-CAT: HIVES - ALLERGY ALBUTEROL SULFATE: COUGH - ALLERGY GASTROGRAFIN: ONLY 1 BOTTLE PER TEST DAY (CAN NOT TOLERATE ANY MORE THAN 1 BOTTLE) - CONTRAINDICATION LATEX (FOR ALLERGY USE ONLY): DIFFICULTY - ALLERGY TIZANIDINE HCL: HIVES - ALLERGY SURGICAL HISTORY NO PERSONAL HX OF SEVERE REACTION TO ANESTHESIA, HER BROTHER HAS "HAD HIS THROAT CLOSE OFF TWO DIFFERENT TIMES" WITH GENERAL ANESTHESIA SCALP TUMOR 1984 LUMPECTOMIES - REPORTED BENIGN BILATERAL 16 AND 21 YO TOTAL HYSTERECTOMY-DUE TO OVARIAN CYSTS/MASS 21 YO BILAT SYMPATHECTOMY 1987 AV FISTULA REPAIR L LEG 1989 CHOLECYSTECTOMY LATE SBO 2001 ABDOMINAL HERNIA REPAIR 2004 VENTRAL HERNIA REPAIR 2009 DORSAL COLUMN STIMULATOR TAKEN OUT AND NEW ONE IMPLANTED 02/21 SMALL PORTION OF SMALL BOWEL RESECTED AND VENTRAL HERNIA REPAIRS ([place]) 06/2010 ILEOSTOMY-EDUARD 07/28/12 CYST REMOVED RIGHT NOSTRIL- DR RAJPUT. 09/17/12 REPAIR TWO HERNIAS AND REPAIR OF STOMA 03/26 HERNIA REPAIR X2 08/31/13 PARASTOMAL HERNIA REPAIR- EDUARD 06/26 HERNIA AND STOMA REPAIR-EDUARD 06/11 PERASTOMAL HERNIA REPAIR, WITH A SMALL BOWEL OBSTRUCTION 03/2017 INFUSAPORT PLACMENT ([facility]) 08/2017 HERNIA REPAIR X4 STOMA REVERSAL 10/2017 BATTERY REPLACEMENT FOR STIMULATOR 02/2018 TRANPLANT 10/2020 SOCIAL HISTORY GENERAL: TOBACCO USE ARE YOU A:NONSMOKER NEVER SMOKER LATEX QUESTIONNAIRE LATEX ALLERGY : HAVE YOU EVER DEVELOPED ANY TYPE OF REACTION AFTER HANDLING LATEX PRODUCTS SUCH RUBBER GLOVES, CONDOMS, DIAPHRAGMS, BALLOONS, SOCKS, OR UNDERWEAR?YES SEE ALLERGY LIST - PLEASE INDICATE :OTHER (DOCUMENT IN NOTES) LATEX ALLERGY : HAVE YOU EVER DEVELOPED ANY TYPE OF REACTION DURING OR AFTER DENTAL APPOINTMENT, VAGINAL/RECTAL EXAMINATION, SURGICAL PROCEDURE, OR ANY OTHER EXPOSURE?YES - PLEASE INDICATE :DENTAL PROCEDURE, VAGINAL EXAM, RECTAL EXAM, SURGICAL PROCEDURE, OTHER (DOCUMENT IN NOTES) LATEX RISK : HAVE YOU EVER HAD ANY DIFFICULTY BREATHING OR HIVES AFTER EATING OR HANDLING ANY FRUITS, OR VEGETABLES; SUCH KIWI, BANANAS, STONE FRUITS, OR CHESTNUTSYES - PLEASE INDICATE : BANANAS, STONE FRUITS LATEX RISK : DO YOU HAVE A PREVIOUS PERSONAL HISTORY OF MORE THAN NINE SURGERIES, SPINA BIFIDA, OR REPEATED CATHERIZATIONS? YES - PLEASE INDICATE : > 9 SURGERIES LATEX RISK : ARE YOU FREQUENTLY EXPOSED TO LATEX PRODUCTS IN YOUR OCCUPATION?NO DATE ASKED : 10/18/2020 ALCOHOL USE: NO. ALCOHOL SCREENING DID YOU HAVE A DRINK CONTAINING ALCOHOL IN THE PAST YEAR?NO POINTS0 INTERPRETATIONNEGATIVE RECREATIONAL DRUG USE DRUG USE?NO CAFFEINE CAFFEINE USE?NO SEXUAL HX HAD SEX IN THE LAST 12 MONTHS (VAGINAL, ORAL, OR ANAL)?NO HAVE YOU EVER HAD AN STD?NO HIV / HEP-C SCREENING HIV TEST OFFERED TO PATIENT:YES DATE OFFERED:07/18/2016 TEST ACCEPTED:NO HEP-C TEST OFFERED TO PATIENT:YES DATE OFFERED:07/18/2016 REASON:PATIENT DECLINED TEST ACCEPTED:NO REASON:PATIENT DECLINED Z[employer]RIAN [id number] [employer] LANGUAGES SPOKEN:[place] CIT[place] EDUCATION LEVEL OF EDUCATION:[employer]CHO[employer] 8TH GRADE LEARNING BARRIERS / SPECIAL NEEDS CHANGE FROM LAST VISIT?NO BARRIERS TO LEARNING?NO HEARING IMPAIRED?NO VISION IMPAIRED?YES :CORRECTIVE LENSES COGNITIVELY IMPAIRED?NO READINESS TO LEARN?YES LEARNING PREFERENCES?NO LEARNING CAPABILITIES PRESENT?YES EMOTIONAL BARRIERS?NO SPECIAL DEVICES?YES :WHEELCHAIR DR BRAN IN PROCESS ABRADING MACHINE TENDER NEEDED?NO DOMESTIC VIOLENCE DO YOU FEEL SAFE IN YOUR ENVIRONMENT?YES OCCUPATION: DISABLED. DIET: NO CONCENTRATED SWEETS., CARBOHYDRATE CONTROLLED. EXERCISE: NO REGULAR EXERCISE. MARITAL STATUS: SINGLE. OTHERS AT HOME: NONE. - PFS REFERRAL NEEDED?NO CLERGY REFERRAL NEEDED?NO PUBLIC HEALTH REFERRAL NEEDED?NO HAS THE PATIENT BEEN EDUCATED REGARDING HIS/HER PLAN OF CARE?YES HAS THE PATIENT BEEN EDUCATED REGARDING PAIN, THE RISK FOR PAIN, THE IMPORTANCE OF EFFECTIVE PAIN MANAGEMENT, AND THE PAIN ASSESSMENT PROCESS?YES ADVANCE DIRECTIVE ADVANCE DIRECTIVE DISCUSSED WITH PATIENT:YES STATES SHE HAS HCP - BROTHER (LUCAS); COPY PLACED IN RECORDS, HE IS ALSO POA. SHE ALSO HAS MOLST FORM THAT IS ON FILE [phone] [facility] PHONE # HOSPITALIZATION/MAJOR DIAGNOSTIC PROCEDURE [facility]- SMALL BOWEL OBSTRUCTION, WAS IN HOSPITAL 11 DAYS 09/2015 [facility]- SMALL BOWEL OBSTRUCTION, WAS IN HOSPITAL IN 5 DAYS 03/2016 [facility]- SMALL BOWEL OBSTRUCTION 04/12/16-04/17/16 [facility]- SMALL BOWEL OBSTRUCTION 06/2016 [facility]- SMALL BOWEL OBSTRUCTION 03/17/17-04/18/17 [facility] - SMALL BOWEL OBSTRUCTION, PNEUMONIA, PSEUDOGOUT 11/2018 [facility] - SMALL BOWEL OBSTRUCTION 02/2019 [facility]-SHORT GUT SYNDROME 06/29/19 REVIEW OF SYSTEMS CONSTITUTIONAL: ANY RECENT FEVER NO . CHILLS NO . WEIGHT CHANGE OF UNKNOWN REASONS NO . GASTROENTEROLOGY: NEW UNEXPLAINABLE CHANGES IN BOWEL CONTROL NO . CONSTIPATION NO . GENITOURINARY: ANY NEW CHANGE IN BLADDER CONTROL? NO . NEUROLOGY: NEW ONSET DIZZINESS OR NEUROLOGICAL CHANGES NOT MENTIONED NO . NEW NUMBNESS OR PAIN PATTERNS NOT MENTIONED AND PERTINENT TO TODAY'S VISIT NO . CARDIOLOGY: NEW CHEST PRESSURE NO . PATIENT DENIES NO . RESPIRATORY: UNEXPLAINABLE COUGH NO . NEW SHORTNESS OF BREATH NO . VITAL SIGNS WT 176.0 LBS, HT 67 IN, BMI 27.56 INDEX, BP 133/72 MM HG, HR 98 /MIN, RR 18 /MIN, TEMP 97.1 F, OXYGEN SAT % 97%, BLOOD GLUCOSE LEVEL 265 THIS AM, SAFE IN ENV? (Y/N) YES, NA INITIALS AW 1107T.ANN MARIE ANDRES. EXAMINATION GENERAL EXAMINATION: GENERALAWAKE,ALERT ,PLEASANT . PSYCHAFFECT NORMAL . LUNGS:LUNG RGOERS ARE CLEAR TO AUSCULTATION BILATERALLY. GOOD MOVEMENT OF AIR . HEART:S1, S2 IN A REGULAR RATE AND RHYTHM. NO SIGNIFICANT MURMURS, RUBS OR GALLOPS NOTED . ASSESSMENTS OTHER CHRONIC PAIN - G89.29 (PRIMARY) MYALGIA, OTHER SITE - M79.18 TREATMENT OTHER CHRONIC PAIN NOTES: CONTINUE WITH HOME EXERCISE AND STRETCHING. FOLLOW-UP AT PAIN CLINIC IS SCHEDULED IN 3 MONTHS. PATIENT IS ENCOURAGED TO CALL US SOONER SHOULD HER CONDITION CHANGE FOR REEVALUATION. PROCEDURE CODES FA211 ESTABILISHED PATIENT [facility] CHARGE DISPOSITION & COMMUNICATION FOLLOW UP 3 MONTHS (REASON: F/U MYALGIA/HEADACHES RESPONDS WELL TO TPI/CHECK ON BOWEL AND ABD MUSCLE TRANSPLANT SURGERY) ELECTRONICALLY SIGNED BY DANIELE MCKEON ON 10/19/2020 AT 03:18 PM EDT DISCLAIMER : THIS IS A VISIT SUMMARY EXTRACTED FROM THE [employer] CHART. IT IS NOT A COPY OF THE [employer] PROGRESS NOTE. MARLYN
== END ==
LOC: M PAIN 10:45
PROVIDERS: ATTEND Nurse Practitioner Family
DX: M79.18 Myalgia, other site (principal); E11.40 Type 2 diabetes mellitus with diabetic neuropathy, unspecified; J45.909 Unspecified asthma, uncomplicated; Z96.89 Presence of other specified functional implants; Z88.0 Allergy status to penicillin; Z88.1 Allergy status to other antibiotic agents; Z88.2 Allergy status to sulfonamides; Z88.3 Allergy status to other anti-infective agents; Z88.5 Allergy status to narcotic agent; Z88.6 Allergy status to analgesic agent; Z88.8 Allergy status to other drugs, medicaments and biological substances; Z91.02 Food additives allergy status; Z91.040 Latex allergy status; Z79.4 Long term (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; Z79.899 Other long term (current) drug therapy

== ENCOUNTER 2020-10-20 09:16 | Emergency (ER) | payer OTHER ==
[~2020-10-20] VITALS: Ht 170.2 cm; Wt 78.5 kg
[~2020-10-20 09:16] MED LIST changes: -[UNRECOGNIZED DRUG - OTHER] EX
[2020-10-20] MEDS ORDERED: [UNRECOGNIZED DRUG - OTHER] EX (12:09)
[2020-10-20 13:11] VITALS: BP 134/74
== END 2020-10-20 13:13 | disposition home or self-care (01) ==
LOC: M ED 09:16
DX: L30.9 Dermatitis, unspecified (principal); E11.9 Type 2 diabetes mellitus without complications; Z90.49 Acquired absence of other specified parts of digestive tract; Z79.899 Other long term (current) drug therapy; Z91.040 Latex allergy status; Z91.02 Food additives allergy status; Z91.018 Allergy to other foods; Z91.89 Other specified personal risk factors, not elsewhere classified; Z88.0 Allergy status to penicillin; Z88.2 Allergy status to sulfonamides; Z88.8 Allergy status to other drugs, medicaments and biological substances; Z88.1 Allergy status to other antibiotic agents; Z88.5 Allergy status to narcotic agent

== ENCOUNTER 2020-10-30 07:29 | Outpatient (CLI) | payer OTHER ==
[~2020-10-30] VITALS: Ht 170.2 cm; Wt 73.0 kg
[~2020-10-30 07:29] MED LIST changes: +[UNRECOGNIZED DRUG - OTHER] EX
[2020-10-30 07:35] VITALS: BP 112/61
[2020-10-30 08:07] LABS: HEMATOCRIT 38.1 % (36.0-47.0); HEMOGLOBIN 12.1 g/dl (12.0-15.5); MEAN CORPUSCULAR HEMOGLOBIN 31.8 pg (27.0-33.0); MEAN CORPUSCULAR HGB CONC 31.8 g/dl (32.0-36.5); MEAN CORPUSCULAR VOLUME 100.3 fl (80.0-96.0); PLATELET COUNT, AUTOMATED 212 10^3/uL (150-450); WHITE BLOOD COUNT 5.7 10^3/uL (4.0-10.0)
[2020-10-30 08:24] LABS: HEMOGLOBIN A1c 9.2 %
[2020-10-30 08:38] LABS: ALBUMIN 3.3 GM/DL (3.2-5.2); ALT/SGPT 42 U/L (12-78); BILIRUBIN,TOTAL 0.2 MG/DL (0.2-1.0); BLOOD UREA NITROGEN 15 MG/DL (7-18); CALCIUM LEVEL 9.9 MG/DL (8.8-10.2); CARBON DIOXIDE LEVEL 26 MEQ/L (21-32); CHLORIDE LEVEL 103 MEQ/L (98-107); GLOMERULAR FILTRATION RATE > 60.0 (>45); GLUCOSE, FASTING 178 MG/DL (70-100); MAGNESIUM LEVEL 1.7 MG/DL (1.8-2.4); POTASSIUM SERUM 4.2 MEQ/L (3.5-5.1); SODIUM LEVEL 137 MEQ/L (136-145); TOTAL PROTEIN 7.9 GM/DL (6.4-8.2)
[2020-10-30] MEDS ORDERED: SODIUM CHLORIDE 0.9% INJ 10 ML SYR IV SCH (09:00)
== END 2020-10-30 08:00 | disposition home or self-care (01) ==
LOC: M INFU 07:29
PROVIDERS: ATTEND Family Medicine
DX: E11.65 Type 2 diabetes mellitus with hyperglycemia (principal); E83.42 Hypomagnesemia
CPT/HCPCS: 36591; 80053; 83036; 83735; 85027; 96523; J1642

== ENCOUNTER 2020-11-27 07:18 | Outpatient (CLI) | payer OTHER ==
[~2020-11-27] VITALS: Ht 170.2 cm; Wt 73.0 kg
[~2020-11-27 07:18] MED LIST changes: -DOXY100C PO; +DOXY100C3 PO; +MORP1SOL5 PO; -MORP20SO3 PO; -ONDA2VL IV; +ONDA40IN IV
[2020-11-27 07:38] VITALS: BP 135/78
[2020-11-27] MEDS ORDERED: SODIUM CHLORIDE 0.9% INJ 10 ML SYR IV SCH (09:00)
== END 2020-11-27 07:40 | disposition home or self-care (01) ==
LOC: M INFU 07:18
PROVIDERS: ATTEND Family Medicine
DX: E11.65 Type 2 diabetes mellitus with hyperglycemia (principal); E83.42 Hypomagnesemia
CPT/HCPCS: 96523; J1642

== ENCOUNTER → 2020-12-04 | Outpatient (CLI) | payer OTHER ==
--- NOTE | 2020-12-04 09:38 | REP ---
INDICATION: PRE OP COMPARISON: 09/06/2020 TECHNIQUE: PA and lateral. FINDINGS: The mediastinum and cardiac silhouette are normal. Ruwdum-N-Yfdx identified with tip in the SVC. Epidural stimulator at the lower thoracic level remains stable. The lung garcía demonstrate chronic changes primarily at the left base. No acute consolidation, obvious effusion or pneumothorax. The skeletal structures are intact and normal. Surgical larry in the visualized upper abdomen. IMPRESSION: No acute cardiopulmonary process. <Electronically signed by Darius Roth > 12/04/20 0940
[2020-12-04 11:21] LABS: BASO % 0.6 % (0.0-1.0); EOS # 0.1 10^3/uL (0.0-0.5); EOS % 1.2 % (0.0-3.0); HEMATOCRIT 38.3 % (36.0-47.0); HEMOGLOBIN 12.3 g/dl (12.0-15.5); LYMPH # 1.7 10^3/uL (1.5-5.0); LYMPH % 24.8 % (24.0-44.0); MEAN CORPUSCULAR HEMOGLOBIN 31.2 pg (27.0-33.0); MEAN CORPUSCULAR HGB CONC 32.1 g/dl (32.0-36.5); MEAN CORPUSCULAR VOLUME 97.2 fl (80.0-96.0); MONO # 0.5 10^3/uL (0.0-0.8); NEUTROPHILS # 4.3 10^3/uL (1.5-8.5); NEUTROPHILS % 65.1 % (36.0-66.0); PLATELET COUNT, AUTOMATED 236 10^3/uL (150-450); RED BLOOD COUNT 3.94 10^6/uL (4.00-5.40); WHITE BLOOD COUNT 6.6 10^3/uL (4.0-10.0)
[2020-12-04 11:28] LABS: INR 0.96; PROTHROMBIN TIME 13.2 SECONDS (12.7-14.5)
[2020-12-04 12:10] LABS: ALBUMIN 3.4 GM/DL (3.2-5.2); ALT/SGPT 55 U/L (12-78); BILIRUBIN,TOTAL 0.2 MG/DL (0.2-1.0); BLOOD UREA NITROGEN 6 MG/DL (7-18); CALCIUM LEVEL 11.1 MG/DL (8.8-10.2); CARBON DIOXIDE LEVEL 30 MEQ/L (21-32); CHLORIDE LEVEL 100 MEQ/L (98-107); CREATININE FOR GFR 0.47 MG/DL (0.55-1.30); GLOMERULAR FILTRATION RATE > 60.0 (>45); GLUCOSE, FASTING 133 MG/DL (70-100); MAGNESIUM LEVEL 1.6 MG/DL (1.8-2.4); POTASSIUM SERUM 4.4 MEQ/L (3.5-5.1); SODIUM LEVEL 137 MEQ/L (136-145); TOTAL PROTEIN 7.9 GM/DL (6.4-8.2)
== END ==
LOC: M PLAIMG 09:07
PROVIDERS: ATTEND Family Medicine
DX: Z01.818 Encounter for other preprocedural examination (principal); K43.9 Ventral hernia without obstruction or gangrene

== ENCOUNTER 2020-12-18 08:24 | Emergency (ER) | payer OTHER ==
[2020-12-18] MEDS ORDERED: HYDR2TAB2 PO (08:51)
[2020-12-18] MEDS ORDERED: HYDROmorphone 2 MG TAB PO ONE (09:00)
[2020-12-18] MEDS ORDERED: ONDANSETRON 4 MG ORAL DISINTEGRATING TAB PO ONE (09:00)
[2020-12-18 10:07] VITALS: BP 146/64
== END 2020-12-18 10:15 | disposition home or self-care (01) ==
LOC: EDBD 08:24 → M ED 08:24
DX: G89.18 Other acute postprocedural pain (principal); R10.10 Upper abdominal pain, unspecified; E11.40 Type 2 diabetes mellitus with diabetic neuropathy, unspecified; J45.909 Unspecified asthma, uncomplicated; E78.5 Hyperlipidemia, unspecified; K21.9 Gastro-esophageal reflux disease without esophagitis; G89.4 Chronic pain syndrome; L20.9 Atopic dermatitis, unspecified; Z87.442 Personal history of urinary calculi; Z79.4 Long term (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; Z79.890 Hormone replacement therapy; Z79.899 Other long term (current) drug therapy; Z91.041 Radiographic dye allergy status; Z91.018 Allergy to other foods; Z88.0 Allergy status to penicillin; Z88.2 Allergy status to sulfonamides; Z91.89 Other specified personal risk factors, not elsewhere classified; Z88.8 Allergy status to other drugs, medicaments and biological substances; Z88.1 Allergy status to other antibiotic agents; Z88.5 Allergy status to narcotic agent; Z91.02 Food additives allergy status
CPT/HCPCS: 99284; Q0162

== ENCOUNTER 2020-12-22 11:13 | Emergency (ER) | payer OTHER ==
[~2020-12-22] VITALS: Ht 154.9 cm; Wt 77.7 kg
[~2020-12-22 11:13] MED LIST changes: +HYDR2TAB2 PO; -KLOR20TA42 PO; +POTA-141 PO
[2020-12-22] MEDS ORDERED: HYDROmorphone 2 MG TAB PO ONE ×3 (14:30→20:55)
--- NOTE | 2020-12-22 15:33 | REP ---
INDICATION: HX SBO/Recent abd surg/decreased vol Colostomy. COMPARISON: Multiple the latest 09/28/2020 TECHNIQUE: Standard helical technique without intravenous or oral bowel preparatory contrast administration FINDINGS: Curvilinear densities are seen in the bilateral lung bases consistent with subsegmental atelectatic changes. Limited evaluation of the solid intra-abdominal organs again shows a large area of decreased density in the left lobe of the liver both medial and lateral segments and difficult to evaluate since no postcontrast enhanced images were obtained. The spleen, pancreas, adrenal glands, and kidneys are unchanged. Once again, there is atrophy and diffuse fatty infiltration of the pancreas. There is an unchanged nonobstructing single left nephrolith. Mild right-sided hydronephrosis has developed without evidence of nephroureterolithiasis. There is no significant change in the appearance of the abdominal aorta or para-aortic regions. Surgical clips are again seen in the retroperitoneum and left abdomen. Since the last examination a 17.9 by 2.4 by 14.1 cm sized fluid collection has developed beneath multiple surgical clips in the anterior abdominal wall.. No abnormal air density seen within this collection of fluid,, there is evidence of fatty infiltration surrounding this fluid collection. A few air densities are seen in the anterior subcutaneous adipose tissue at the midline adjacent to multiple surgical clips. There is an additional well demarcated fluid collection in the inferior left parasagittal anterior abdominal subcutaneous fat which measures 5.3 x 1.8 cm. There is a trace amount of free fluid in the abdomen. There is no evidence of free intraperitoneal air there are multiple dilated fluid and gas-filled small bowel loops seen in the abdomen and pelvis. The left-sided ostomy site appears unremarkable. There is no evidence of a parastomal hernia. Bone window technique throughout the examination shows no significant change in appearance of the osseous structures. IMPRESSION: 1. Likely complex appearing postoperative seroma along the anterior abdominal wall in 2 separate components as described above. Follow-up to ensure no developing abscess is recommended. 2. Ileus versus small-bowel obstruction. 3. Unchanged nonobstructive left nephrolith. 4. Mild right-sided hydronephrosis etiology uncertain. 5. Abnormal liver parenchyma as described above. Follow-up with a contrast enhanced examination for further evaluation. 6. Other findings as described above. <Electronically signed by Jeff Benz > 12/22/20 0587
[2020-12-22 15:51] LABS: BASO # 0.1 10^3/uL (0.0-0.2); BASO % 0.5 % (0.0-1.0); EOS # 0.1 10^3/uL (0.0-0.5); EOS % 0.8 % (0.0-3.0); HEMOGLOBIN 11.7 g/dl (12.0-15.5); LYMPH # 0.9 10^3/uL (1.5-5.0); LYMPH % 8.8 % (24.0-44.0); MEAN CORPUSCULAR HEMOGLOBIN 30.5 pg (27.0-33.0); MEAN CORPUSCULAR HGB CONC 31.6 g/dl (32.0-36.5); MEAN CORPUSCULAR VOLUME 96.4 fl (80.0-96.0); MONO # 0.7 10^3/uL (0.0-0.8); MONO % 6.8 % (2.0-8.0); NEUTROPHILS % 82.4 % (36.0-66.0); PLATELET COUNT, AUTOMATED 289 10^3/uL (150-450); RED BLOOD COUNT 3.84 10^6/uL (4.00-5.40); WHITE BLOOD COUNT 9.7 10^3/uL (4.0-10.0)
[2020-12-22] MEDS ORDERED: ONDANSETRON 4MG/2ML VIAL IV ONE ×2 (16:00→20:55)
[2020-12-22] MEDS ORDERED: NS IV ONE (16:05)
[2020-12-22 16:13] LABS: ALBUMIN 2.3 GM/DL (3.2-5.2); BILIRUBIN,DIRECT 0.1 MG/DL (0.0-0.2); BILIRUBIN,TOTAL 0.3 MG/DL (0.2-1.0); C REACTIVE PROTEIN QUANTITATIV 8.9 MG/DL (0.00-0.30); TOTAL PROTEIN 7.7 GM/DL (6.4-8.2)
[2020-12-22] MEDS ORDERED: NS 1,000 ML IV SCH (20:15)
[2020-12-22 20:53] LABS: RSV AMPLIFICATION NEGATIVE (NEGATIVE)
[2020-12-22 22:21] VITALS: BP 137/67
== END 2020-12-22 22:22 | disposition short-term general hospital (02) ==
LOC: M ED 11:13
DX: K91.872 Postprocedural seroma of a digestive system organ or structure following a digestive system procedure (principal); R10.9 Unspecified abdominal pain; R11.0 Nausea; N13.2 Hydronephrosis with renal and ureteral calculous obstruction; R93.2 Abnormal findings on diagnostic imaging of liver and biliary tract; G89.4 Chronic pain syndrome; E11.40 Type 2 diabetes mellitus with diabetic neuropathy, unspecified; J45.909 Unspecified asthma, uncomplicated; Z88.0 Allergy status to penicillin; Z88.1 Allergy status to other antibiotic agents; Z88.2 Allergy status to sulfonamides; Z88.5 Allergy status to narcotic agent; Z88.8 Allergy status to other drugs, medicaments and biological substances; Z79.899 Other long term (current) drug therapy; Z79.4 Long term (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
CPT/HCPCS: 74176; 80047; 80076; 83690; 85025; 86140; 87070; 87077; 87186; 87205; 87631; 99284; J2405

== ENCOUNTER 2021-01-09 20:47 | Emergency (ER) | payer OTHER ==
[~2021-01-09] VITALS: Ht 170.2 cm; Wt 49.1 kg
--- NOTE | 2021-01-09 22:26 | REPVR ---
PROCEDURE INFORMATION: Exam: XR Chest Exam date and time: 01/09/2021 10:07 PM Age: 60 years old Clinical indication: Cough and dyspnea; Additional info: Dyspnea/cough TECHNIQUE: Imaging protocol: XR of the chest. Views: 1 view. COMPARISON: CR Chest, 2 view PA, Lat 12/04/2020 9:40 AM FINDINGS: Tubes, catheters and devices: Lower thoracic epidural electrodes are again noted. A right internal jugular Port-A-Cath is unchanged. Lungs: There is decreased inflation of the lungs. There are no interval infiltrates. Pleural spaces: Minimal left pleural effusion is not excluded. Heart/Mediastinum: The heart and mediastinum are unchanged. Bones/joints: Unremarkable. IMPRESSION: There has been little change since 12/04/2020 in view of decreased inflation since the prior study. Electronically signed by: Jos Waldron On 01/09/2021 22:25:38 PM
[2021-01-09 22:29] LABS: ABG BASE EXCESS 4.8 (-2.0-2.0); ABG HCO3 28.3 MEQ/L (22.0-26.0); ABG O2 SATURATION 97.6 % (95.0-99.0); ABG PARTIAL PRESSURE CO2 37.6 mmHg (35.0-45.0); ABG PARTIAL PRESSURE O2 95.3 mmHg (75.0-100.0); ABG STANDARD HCO3 28.8 MEQ/L (22.0-26.0); ABG TOTAL CO2 29.4 MEQ/L (23.0-31.0); ABG pH (ARTERIAL) 7.494 UNITS (7.350-7.450)
[2021-01-09 22:37] LABS: BASO # 0.1 10^3/uL (0.0-0.2); BASO % 0.9 % (0.0-1.0); EOS # 0.1 10^3/uL (0.0-0.5); HEMATOCRIT 33.2 % (36.0-47.0); HEMOGLOBIN 10.6 g/dl (12.0-15.5); LYMPH # 1.8 10^3/uL (1.5-5.0); LYMPH % 21.8 % (24.0-44.0); MEAN CORPUSCULAR HEMOGLOBIN 30.1 pg (27.0-33.0); MEAN CORPUSCULAR HGB CONC 31.9 g/dl (32.0-36.5); MEAN CORPUSCULAR VOLUME 94.3 fl (80.0-96.0); MONO # 0.8 10^3/uL (0.0-0.8); MONO % 9.5 % (2.0-8.0); NEUTROPHILS # 5.4 10^3/uL (1.5-8.5); NEUTROPHILS % 66.3 % (36.0-66.0); PLATELET COUNT, AUTOMATED 396 10^3/uL (150-450); RED BLOOD COUNT 3.52 10^6/uL (4.00-5.40); WHITE BLOOD COUNT 8.1 10^3/uL (4.0-10.0)
[2021-01-09 22:57] LABS: RSV AMPLIFICATION NEGATIVE (NEGATIVE)
[2021-01-09 23:17] LABS: ALT/SGPT 54 U/L (12-78); BILIRUBIN,DIRECT < 0.1 MG/DL (0.0-0.2); BILIRUBIN,TOTAL 0.2 MG/DL (0.2-1.0); BLOOD UREA NITROGEN 27 MG/DL (7-18); CALCIUM LEVEL 11.1 MG/DL (8.8-10.2); CARBON DIOXIDE LEVEL 29 MEQ/L (21-32); CHLORIDE LEVEL 95 MEQ/L (98-107); CK-MB VALUE MASS < 1.0 NG/ML (<3.6); CPK CREATINE PHOSPHOKINASE 56 U/L (26-192); CREATININE FOR GFR 0.99 MG/DL (0.55-1.30); GLOMERULAR FILTRATION RATE > 60.0 (>45); GLUCOSE, FASTING 191 MG/DL (70-100); MB/CK RELATIVE INDEX 1.79 (< OR =4); NT-PRO BNP 169 PG/ML (<125); SODIUM LEVEL 135 MEQ/L (136-145); TOTAL PROTEIN 9.1 GM/DL (6.4-8.2); TROPONIN I < 0.02 NG/ML (< 0.10)
[2021-01-10 00:09] VITALS: BP 128/65
--- NOTE | 2021-01-11 07:38 | ECGEPIP ---
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
== END 2021-01-10 00:44 | disposition home or self-care (01) ==
LOC: M ED 20:47
DX: G89.18 Other acute postprocedural pain (principal); R10.9 Unspecified abdominal pain; E11.9 Type 2 diabetes mellitus without complications; I10 Essential (primary) hypertension; Z79.4 Long term (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; Z79.890 Hormone replacement therapy; Z79.899 Other long term (current) drug therapy; Z91.041 Radiographic dye allergy status; Z91.89 Other specified personal risk factors, not elsewhere classified; Z88.0 Allergy status to penicillin; Z91.018 Allergy to other foods; Z88.2 Allergy status to sulfonamides; Z88.1 Allergy status to other antibiotic agents; Z88.8 Allergy status to other drugs, medicaments and biological substances; Z88.5 Allergy status to narcotic agent

== ENCOUNTER → 2021-01-12 | Outpatient (CLI) | payer OTHER ==
--- NOTE | 2021-01-12 15:35 | REP ---
INDICATION: SUBACUTE COUGH. COMPARISON: 12/09/2020 a portable exam TECHNIQUE: PA and lateral FINDINGS: The cardiomediastinal silhouette lung garcía are unchanged. The MediPort device tip is unchanged. Tip of the dorsal column stimulator is unchanged. No acute patchy parenchymal opacities or pleural effusions have developed. There is no significant change in appearance of the osseous structures. IMPRESSION: No significant change <Electronically signed by Jeff Benz > 01/12/21 [id number]
== END ==
LOC: M PLAIMG 14:54
PROVIDERS: ATTEND Family Medicine
DX: R05.2 Subacute cough (principal)

== ENCOUNTER 2021-01-22 07:35 | Outpatient (CLI) | payer OTHER ==
[~2021-01-22] VITALS: Ht 165.1 cm; Wt 49.0 kg
[2021-01-22 07:35] VITALS: BP 109/59
[~2021-01-22 07:35] MED LIST changes: +SODIUM CHLORIDE 0.9% INJ 10 ML SYR IV PRN
[2021-01-22 08:37] LABS: HEMOGLOBIN A1c 7.4 %
[2021-01-22] MEDS ORDERED: SODIUM CHLORIDE 0.9% INJ 10 ML SYR IV SCH (09:00)
[2021-01-22 09:56] LABS: BLOOD UREA NITROGEN 19 MG/DL (7-18); CALCIUM LEVEL 9.5 MG/DL (8.8-10.2); CARBON DIOXIDE LEVEL 22 MEQ/L (21-32); CHLORIDE LEVEL 109 MEQ/L (98-107); CREATININE FOR GFR 0.52 MG/DL (0.55-1.30); GLOMERULAR FILTRATION RATE > 60.0 (>45); GLUCOSE, FASTING 155 MG/DL (70-100); MAGNESIUM LEVEL 1.8 MG/DL (1.8-2.4); PHOSPHORUS LEVEL 3.2 MG/DL (2.5-4.9); POTASSIUM SERUM 4.4 MEQ/L (3.5-5.1); SODIUM LEVEL 137 MEQ/L (136-145)
== END 2021-01-22 08:00 | disposition home or self-care (01) ==
LOC: M INFU 07:35
PROVIDERS: ATTEND Family Medicine
DX: E11.65 Type 2 diabetes mellitus with hyperglycemia (principal); E83.42 Hypomagnesemia
CPT/HCPCS: 36591; 80069; 83036; 83735; 96523; J1642

== ENCOUNTER 2021-01-31 09:39 | Emergency (ER) | payer OTHER ==
[~2021-01-31] VITALS: Ht 170.2 cm; Wt 68.6 kg
[~2021-01-31 09:39] MED LIST changes: -SODIUM CHLORIDE 0.9% INJ 10 ML SYR IV PRN
[2021-01-31] MEDS ORDERED: HYDROMORPHONE HCL 0.5 MG/ 0.5 ML SYRINGE (J1170 PER 1) IV PRN (11:40)
--- NOTE | 2021-01-31 12:31 | REP ---
INDICATION: Left flank pain. COMPARISON: Multiple the latest 12/22/2020 also without contrast TECHNIQUE: Standard helical technique without intravenous or oral bowel preparatory contrast FINDINGS: There is no significant change in the appearance of the lung bases. There is no significant change in appearance of the liver, spleen, pancreas, adrenal glands, or left kidney. Once again, there is diffuse fatty infiltration of the pancreas with atrophy. There is an unchanged nonobstructing left nephrolith. The previously present right-sided hydronephrosis has abated. There are no urinary bladder calcifications. There are pelvic phleboliths status quo. There is no change in appearance of the abdominal aorta or para-regions. There is significant improvement in the appearance of the bowel loops. The multiple dilated gas and fluid-filled small bowel loops seen on the prior examination of resolved. No free fluid or free air has developed. The suspected postoperative seroma seen along the anterior abdominal wall has resolved. The residual appears to be a healing wound. The left-sided ileostomy site is unchanged and again seen to be within normal limits. There is no change in appearance of the osseous structures IMPRESSION: 1. There is no evidence of acute disease. 2. Multiple areas of improvement as described above. 3. Chronic changes as described above. <Electronically signed by Jeff Benz > 01/31/21 5084
[2021-01-31 12:59] LABS: BASO % 0.5 % (0.0-1.0); EOS # 0.1 10^3/uL (0.0-0.5); EOS % 1.8 % (0.0-3.0); HEMATOCRIT 34.3 % (36.0-47.0); LYMPH # 0.5 10^3/uL (1.5-5.0); LYMPH % 13.1 % (24.0-44.0); MEAN CORPUSCULAR HEMOGLOBIN 30.1 pg (27.0-33.0); MEAN CORPUSCULAR HGB CONC 32.1 g/dl (32.0-36.5); MEAN CORPUSCULAR VOLUME 93.7 fl (80.0-96.0); MONO # 0.4 10^3/uL (0.0-0.8); NEUTROPHILS # 2.8 10^3/uL (1.5-8.5); NEUTROPHILS % 73.3 % (36.0-66.0); PLATELET COUNT, AUTOMATED 212 10^3/uL (150-450); RED BLOOD COUNT 3.66 10^6/uL (4.00-5.40); WHITE BLOOD COUNT 3.8 10^3/uL (4.0-10.0)
[2021-01-31 13:26] LABS: ALBUMIN 2.9 GM/DL (3.2-5.2); ALT/SGPT 64 U/L (12-78); BILIRUBIN,DIRECT < 0.1 MG/DL (0.0-0.2); BILIRUBIN,TOTAL 0.2 MG/DL (0.2-1.0); BLOOD UREA NITROGEN 16 MG/DL (7-18); CALCIUM LEVEL 9.9 MG/DL (8.8-10.2); CARBON DIOXIDE LEVEL 24 MEQ/L (21-32); CHLORIDE LEVEL 106 MEQ/L (98-107); CREATININE FOR GFR 0.46 MG/DL (0.55-1.30); GLOMERULAR FILTRATION RATE > 60.0 (>45); GLUCOSE, FASTING 100 MG/DL (70-100); LIPASE 91 U/L (73-393); POTASSIUM SERUM 3.4 MEQ/L (3.5-5.1); SODIUM LEVEL 137 MEQ/L (136-145)
[2021-01-31] MEDS ORDERED: POTASSIUM CHLORIDE 10MEQ SR TABLET PO ONE (13:55)
[2021-01-31 14:31] VITALS: BP 153/79
== END 2021-01-31 15:18 | disposition home or self-care (01) ==
LOC: M ED 09:39
DX: R10.9 Unspecified abdominal pain (principal); E87.6 Hypokalemia; E11.9 Type 2 diabetes mellitus without complications; J45.909 Unspecified asthma, uncomplicated; K21.9 Gastro-esophageal reflux disease without esophagitis; Z87.442 Personal history of urinary calculi; G89.4 Chronic pain syndrome; Z79.4 Long term (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; Z79.899 Other long term (current) drug therapy; Z91.041 Radiographic dye allergy status; Z88.0 Allergy status to penicillin; Z88.2 Allergy status to sulfonamides; Z91.89 Other specified personal risk factors, not elsewhere classified; Z88.8 Allergy status to other drugs, medicaments and biological substances; Z88.1 Allergy status to other antibiotic agents; Z91.018 Allergy to other foods; Z91.040 Latex allergy status; Z88.5 Allergy status to narcotic agent; Z91.02 Food additives allergy status
CPT/HCPCS: 74176; 80048; 80076; 81001; 83690; 85025; 93041; 96374; 96375; 99285; J1170; J1642

== ENCOUNTER 2021-02-02 11:19 | Outpatient (CLI) | payer OTHER ==
[~2021-02-02] VITALS: Ht 170.2 cm; Wt 70.5 kg
[2021-02-02 12:00] VITALS: BP 117/61
[2021-02-02 14:15] LABS: BLOOD UREA NITROGEN 19 MG/DL (7-18); CALCIUM LEVEL 10.5 MG/DL (8.8-10.2); CARBON DIOXIDE LEVEL 20 MEQ/L (21-32); CHLORIDE LEVEL 108 MEQ/L (98-107); CREATININE FOR GFR 0.48 MG/DL (0.55-1.30); GLOMERULAR FILTRATION RATE > 60.0 (>45); GLUCOSE, FASTING 141 MG/DL (70-100); MAGNESIUM LEVEL 1.7 MG/DL (1.8-2.4); POTASSIUM SERUM 4.2 MEQ/L (3.5-5.1); SODIUM LEVEL 137 MEQ/L (136-145)
[2021-02-02] MEDS ORDERED: MAG SULF 1GM/100ML (MAG RUN) SINGLE DOSE IV ONE ×2 (15:45)
[2021-02-02] MEDS ORDERED: SODIUM CHLORIDE 0.9% INJ 10 ML SYR IV PRN (15:45)
[2021-02-02 17:00] VITALS: BP 133/60
[2021-02-03] MEDS ORDERED: SODIUM CHLORIDE 0.9% INJ 10 ML SYR IV SCH (09:00)
== END 2021-02-02 17:10 | disposition home or self-care (01) ==
LOC: M INFU 11:19
PROVIDERS: ATTEND Student in an Organized Health Care Education/Training Program
DX: K91.2 Postsurgical malabsorption, not elsewhere classified (principal); Z88.0 Allergy status to penicillin; Z88.1 Allergy status to other antibiotic agents; Z88.2 Allergy status to sulfonamides; Z88.6 Allergy status to analgesic agent; Z88.8 Allergy status to other drugs, medicaments and biological substances; Z88.5 Allergy status to narcotic agent; Z91.041 Radiographic dye allergy status
CPT/HCPCS: 36591; 80048; 83735; 96365; 96523; J1642; J3475

== ENCOUNTER → 2021-02-02 | Outpatient (REF) | payer OTHER | LOC: M SFHCPLAZ 10:07 | PROVIDERS: ATTEND Family Medicine | DX: Z53.20 Procedure and treatment not carried out because of patient's decision for unspecified reasons (principal) ==

== ENCOUNTER 2021-02-19 07:06 | Outpatient (CLI) | payer OTHER ==
[~2021-02-19] VITALS: Ht 165.1 cm; Wt 70.5 kg
[2021-02-19 07:16] VITALS: BP 132/69
[2021-02-19] MEDS ORDERED: SODIUM CHLORIDE 0.9% INJ 10 ML SYR IV SCH (09:00)
[2021-02-19 09:22] VITALS: BP 132/69
== END 2021-02-19 08:40 | disposition home or self-care (01) ==
LOC: M INFU 07:06
PROVIDERS: ATTEND Family Medicine
DX: E11.65 Type 2 diabetes mellitus with hyperglycemia (principal); Z88.0 Allergy status to penicillin; Z88.2 Allergy status to sulfonamides; Z88.1 Allergy status to other antibiotic agents; Z88.8 Allergy status to other drugs, medicaments and biological substances
CPT/HCPCS: 96523; J1642

== ENCOUNTER 2021-03-19 13:59 | Outpatient (CLI) | payer OTHER ==
[~2021-03-19] VITALS: Ht 165.1 cm; Wt 70.5 kg
[~2021-03-19 13:59] MED LIST changes: +SODIUM CHLORIDE 0.9% INJ 10 ML SYR IV PRN
[2021-03-19 14:00] VITALS: BP 132/69
[2021-03-19 14:31] LABS: HEMATOCRIT 35.8 % (36.0-47.0); HEMOGLOBIN 11.4 g/dl (12.0-15.5); MEAN CORPUSCULAR HEMOGLOBIN 30.2 pg (27.0-33.0); MEAN CORPUSCULAR HGB CONC 31.8 g/dl (32.0-36.5); MEAN CORPUSCULAR VOLUME 94.7 fl (80.0-96.0); PLATELET COUNT, AUTOMATED 232 10^3/uL (150-450); RED BLOOD COUNT 3.78 10^6/uL (4.00-5.40); WHITE BLOOD COUNT 5.6 10^3/uL (4.0-10.0)
[2021-03-19 15:08] LABS: ALBUMIN 3.2 GM/DL (3.2-5.2); ALT/SGPT 47 U/L (12-78); BILIRUBIN,TOTAL 0.2 MG/DL (0.2-1.0); BLOOD UREA NITROGEN 14 MG/DL (7-18); CALCIUM LEVEL 10.1 MG/DL (8.8-10.2); CARBON DIOXIDE LEVEL 29 MEQ/L (21-32); CHLORIDE LEVEL 102 MEQ/L (98-107); CREATININE FOR GFR 0.68 MG/DL (0.55-1.30); GLOMERULAR FILTRATION RATE > 60.0 (>45); GLUCOSE, FASTING 235 MG/DL (70-100); SODIUM LEVEL 138 MEQ/L (136-145); TOTAL PROTEIN 7.9 GM/DL (6.4-8.2)
[2021-03-19 19:10] LABS: HEMOGLOBIN A1c 7.1 %
[2021-03-20] MEDS ORDERED: SODIUM CHLORIDE 0.9% INJ 10 ML SYR IV SCH (09:00)
[2021-03-20 10:27] LABS: MAGNESIUM LEVEL 1.9 MG/DL (1.8-2.4)
== END 2021-03-19 14:30 | disposition home or self-care (01) ==
LOC: M INFU 13:59
PROVIDERS: ATTEND Family Medicine
DX: E11.65 Type 2 diabetes mellitus with hyperglycemia (principal)
CPT/HCPCS: 36591; 80053; 83036; 85027; 96523; J1642

== ENCOUNTER → 2021-03-21 | Outpatient (CLI) | payer OTHER ==
[~2021-03-21] MED LIST changes: -SODIUM CHLORIDE 0.9% INJ 10 ML SYR IV PRN
== END ==
LOC: M PT 12:01
PROVIDERS: ATTEND Family Medicine
DX: R53.81 Other malaise (principal)

== ENCOUNTER 2021-03-23 10:03 | Emergency (ER) | payer OTHER ==
[~2021-03-23] VITALS: Ht 170.2 cm; Wt 76.7 kg
[2021-03-23 15:24] LABS: BASO % 0.5 % (0.0-1.0); EOS # 0.1 10^3/uL (0.0-0.5); EOS % 0.9 % (0.0-3.0); HEMATOCRIT 41.1 % (36.0-47.0); HEMOGLOBIN 13.3 g/dl (12.0-15.5); LYMPH # 1.8 10^3/uL (1.5-5.0); LYMPH % 31.6 % (24.0-44.0); MEAN CORPUSCULAR HEMOGLOBIN 29.6 pg (27.0-33.0); MEAN CORPUSCULAR HGB CONC 32.4 g/dl (32.0-36.5); MEAN CORPUSCULAR VOLUME 91.5 fl (80.0-96.0); MONO # 0.5 10^3/uL (0.0-0.8); MONO % 8.9 % (2.0-8.0); NEUTROPHILS # 3.2 10^3/uL (1.5-8.5); NEUTROPHILS % 57.7 % (36.0-66.0); PLATELET COUNT, AUTOMATED 285 10^3/uL (150-450); RED BLOOD COUNT 4.49 10^6/uL (4.00-5.40); WHITE BLOOD COUNT 5.6 10^3/uL (4.0-10.0)
[2021-03-23] MEDS ORDERED: HYDROMORPHONE HCL 0.5 MG/ 0.5 ML SYRINGE (J1170 PER 1) IV ONE (18:10)
[2021-03-23 18:46] LABS: ALBUMIN 3.6 GM/DL (3.2-5.2); ALT/SGPT 43 U/L (12-78); BILIRUBIN,DIRECT < 0.1 MG/DL (0.0-0.2); BILIRUBIN,TOTAL 0.2 MG/DL (0.2-1.0); BLOOD UREA NITROGEN 10 MG/DL (7-18); CALCIUM LEVEL 11.8 MG/DL (8.8-10.2); CARBON DIOXIDE LEVEL 29 MEQ/L (21-32); CHLORIDE LEVEL 102 MEQ/L (98-107); GLOMERULAR FILTRATION RATE > 60.0 (>45); GLUCOSE, FASTING 87 MG/DL (70-100); LIPASE 100 U/L (73-393); POTASSIUM SERUM 3.8 MEQ/L (3.5-5.1); SODIUM LEVEL 138 MEQ/L (136-145); TOTAL PROTEIN 8.4 GM/DL (6.4-8.2)
--- OUTSIDE RECORDS SUMMARY | 2021-03-23 18:52 | CCD ---
Author Author [facility] Organization 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 Name Role Phone Tutu Sanchez Unavailable PROBLEMS Type Condition ICD9-CM Code NAD43-TB Code Onset Dates Condition S tatus W/U Status Risk SNOMED Code Notes Problem Complicated headache syndromes G44.59 Active confir med 503498858 Problem Chronic maxillary sinusitis J32.0 Active confirmed 79695919 Problem Unspecified asthma J45.909 Active confirmed 132786573 Problem Chronic pain associated with significant psychos ocial dysfunction G89.4 Active confirmed 298678803 Problem Chronic nausea R11.0 Active confirmed 56004 7007 Problem Left lower quadrant pain R10.32 Active confirmed 162027782 Problem History of abdominal surgery Z98.890 Active confirm ed 909263664 Problem 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 Active confirm ed 33814131 Problem Internal hemorrhoids without mention of complication K64.8 Active confirmed 22299650 Problem Mixed hyperlipidemia E78.2 Active confirmed 846679423 Problem Viral warts, unspecified B07.9 Active confirmed 35579536 Problem Breast calcification seen on mammogram R92.1 A ctive confirmed 139530538 Problem Pelvic muscle wasting N81.84 Active confirmed 27223650 Problem Hypomagnesemia E83.42 Active confirmed 18789 5004 Problem Anemia, chronic disease D63.8 Active confirmed 046722851 Problem Dysfunction of eustachian tube, bilateral H69.83 Active confirmed 99170285 Problem Esophageal reflux K21.9 Active confirmed 23 0284297 Problem DM w/o complication type II E11.9 Active confirmed 802296698 Problem Low back pain M54.5 Active confirmed 252856 009 Problem DM w/o complication type II, uncontrolled E11.65 Active confirmed 49379802 Problem Occipital neuralgia M54.81 Active confirmed 06067579 Problem skilled nursing (current) use of insulin Z79.4 Activ e confirmed 292614214 Problem Chronic prescription opiate use Z79.899 Active confirmed 999592679 Problem Granulomatous disorder of the skin and s ubcutaneous tissue, unspecified L92.9 Active confirmed 073132705 Problem Multiple drug allergies Z88.9 Active confirmed 819634360 Problem Port catheter in place Z95.828 Active confirmed 101646542 Problem Myalgia M79.1 Active confirmed 69177597 Problem Chronic kidney disease, stage III (moderate) N18.3 Active confirmed 198939544 Problem Type 2 diabetes mellitus with stage 3 chronic kidney disea se E11.22 Active confirmed 76984147 Problem Fatty liver K76.0 Active confirmed 88012472 7 Problem Ileostomy status Z93.2 Active confirmed 302 162412 Problem Encounter for care related to vascular access port Z45.2 Active confirmed 945733429 Problem Complex regional pain syndrome I of left lower limb G90.522 Active confirmed 805270728 Problem Type 2 diabetes mellitus without complications E11 .9 Active confirmed 743522217 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 Active conf irmed 629871266 Problem Hypoglycemia E16.2 Active confirmed 7118274 03 Problem Myalgia, other site M79.18 Active confirmed 79997528 Problem Allergic rhinitis, unspecified seasonality, unspecifie d trigger J30.9 Active confirmed 41075400 Problem Constipation, unspecified constipation type K59.00 Active confirmed 83052872 Problem Pseudogout M11.20 Active confirmed 605724240 Problem Flexural eczema L20.82 Active confirmed 5709 2006 Problem Cervicalgia M54.2 Active confirmed 11705444 Problem Other chronic pain G89.29 Active confirmed 8 7350233 Problem Grief F43.20 Active confirmed 688739692 Problem Type 2 diabetes mellitus with hyperglycemia E11.65 Active confirmed 53277321 Problem Disorders of magnesium metabolism, unspecified E83 .40 Active confirmed 85793770 Problem Spinal cord stimulator status Z96.89 Active confirm ed 299339488 Problem Rosacea L71.9 Active confirmed 645247349 Problem Vaginal atrophy N95.2 Active confirmed 2971 98273 Problem Incisional hernia with obstruction but no gangrene K43.0 Active confirmed 461913083 Problem Falls frequently R29.6 Active confirmed 279 349081 ALLERGIES Allergen (clinical drug ingredient) Drug/Non Drug Allergy do cumented on EMR Reaction Allergy Type Onset Date Status morphine Morphine Sulfate(ND Code:[address]-55) severe h/a with big dose Drug Allergy Active codeine Codeine Sulfate(NDC Code:[address]-73) out of b vito experience Drug Allergy Active ketorolac Ketorolac Tromethamine(NDC Code:[address]-17) vomitin g Drug Allergy Active Gastrografin(NDC Code:[address]-25) Onl y 1 bottle per test day (can not tolerate any more than 1 bottle) Drug Allergy Active Penicillin (For Allergies Use Only) Hives Drug Allerg y Active tiagabine Gabitril(NDC Code:[address]-77) nervous Drug Allergy Active Baclofen affected nervous syt Drug Allergy Ac tive Vicodin Confusion Drug Allergy Active Phenothiazines Phenothiazines nervous system Drug Allergy Active red food dye rash Non Drug Allergy Active promethazine Promethazine HCl(NDC Code:[address]-83) out of body experience Drug Allergy Active Readi-Cat Hives Drug Allergy Active lorazepam Ativan(NDC Code:[address]-24) hallucinations Drug Allergy Active tizanidine Tizanidine HCl(NDC Code:[address]-47) Hives Drug All ergy Active droperidol Droperidol(NDC Code:[address]-21) out of body Drug Allerg y Active Latex Latex difficulty Drug Allergy Active iodine(NDC Code:97410-41753) nerves, tight muscles Drug Al lergy Active pregabalin Lyrica shakes, everything is black Drug Allergy Active nitrofurantoin, macrocrystals / nitrofurantoin, monohy drate Macrobid(NDC Code:[address]-25) Hives, blurred vision Drug Allergy Active azithromycin Azithromycin(NDC Code:[address]-99) hives Drug All ergy Active Sulfasalazine Sulfa Antibiotics Hives Drug Allergy Ac tive Oxycodone vomiting,hives Drug Allergy Active meperidine Meperidine HCl(NDC Code:[address]-26) out of dena dy experience Drug Allergy Active quinolones- cipro,tequin Hives Non Drug Allergy Active lidoderm (licocanine) heart races Non Drug Allergy Active gabapentin Gabapentin([facility] Code:[address]-96) nervous syste m,shakey Drug Allergy Active fentanyl Fentanyl(ND Code:[address]-76) nervous Drug Allergy Active tramadol Tramadol(ND Code:[address]-91) shakes Drug Allergy Active albuterol Albuterol Sulfate([facility] Code:[address]-91) cough Drug Allergy Active aspirin Aspirin(ND Code:[address]-34) Hives Drug Allergy Active ENCOUNTERS from 1960 to 2021-03-01 Encounter Location Date Provider Diagnosis [address] [phone] [place] [address] Feb, Tutu Sanchez IMMUNIZATIONS Vaccine Route Administration Date Status Pneumococcal Adult 0.5mL Pneumovax 23 IM Intramuscular September 25, 2018 Administered Hepatitis A & B 1mL Twinrix IM Intramuscular October 02, 2011 Adm inistered Hepatitis A & B 1mL Twinrix IM Intramuscular Feb 11, 2012 Adm inistered Hepatitis A & B 1mL Twinrix IM Intramuscular Apr 15, 2012 Adm inistered TDAP Unknown September 13, 2009 Administered Pneumococcal Adult 0.5mL Pneumovax 23 IM Intramuscular Feb 22 013 Administered Pneumococcal Adult 0.5mL Pneumovax 23 Unknown Jan 26 16 Administered Influenza 6mo & up Fluzone IM Intramuscular Jan 12, 2010 Admi nistered Influenza 18 yrs & older Flublok IM Intramuscular Jan 23, 2018 Administered Influenza 18 yrs & older Flublok IM Intramuscular Jan 30, 2021 Administered TD PED 0.5mL Tetanus Unknown October 12, 2005 Administere d Influenza 6mo & up Fluzone IM Intramuscular Feb 03, 2017 Admi nistered Influenza 6mo & up Fluzone Unknown Jan 27, 2016 Admin istered Influenza 6mo & up Fluzone IM Intramuscular Jan 20, 2015 Admi nistered Influenza 6mo & up Fluzone IM Intramuscular Dec 31, 2013 Admi nistered Influenza 6mo & up Fluzone IM Intramuscular Jan 25, 2013 Admi nistered Influenza 6mo & up Fluzone IM Intramuscular Feb 04, 2012 Admi nistered Influenza 6mo & up Fluzone IM Intramuscular Mar 15, 2011 Admi nistered SOCIAL HISTORY Tobacco Use: Social History Observation Description Date Details (start date - stop date) Never Smoker Sex Assigned At : Social History Observation Description Sex Assigned At Unknown Education: Question Answer Notes Level of Education: Grade School 8th grade [employer] Question Answer Notes Total Score: 0 Interpretation: Alcohol Education Language: Question Answer Notes Languages spoken: Kosovan Mandaeism: Question Answer Notes Mandaeism 15 [employer] Sexual Hx: Question Answer Notes [...] Notes Start Da te End Date Status Hospital bed use daily as directed dx: K9 1.2, G89.4, G90.522, N81.84 for 99 days May, Active Ammonium Lactate 12 % 1 application Externally Twice a day to feet fo r 30 Active Cavilon spray Apply a uniform coating of f ilm over the ostomy region topically Daily and as needed Dx: Z93.2 for 28 day(s) Oct, Active Baby Wipes 1 ander-stoma cleanser and adhe sive remover topically prn dx:Z93.2 for 90 days Active Nystatin Powder 346303 UNIT/GM apply Externally four t imes a day under the left breast for 14 day(s) Oct, Active [facility] Magnesium Oxide 250 MG 1 tablet with food Orally Once a day for 5 days Jan, Active Zofran 4 MG/2ML 4 mg Injection TID at least 6h apart for 30 Days Nov, Active Dicyclomine HCl 10 MG TAKE ONE CAPSULE BY MOUTH FOUR TIMES A DAY for 30 Active Alcohol Prep Pad 70 % as directed E11.9 test blood sugar QID PRN for 50 Active DuoDERM CGF Dressing - 1 packet Externally Daily for 14 day(s) Oct, Active Estradiol 0.1 MG/GM _insert ONE GRAM VAGINALLY EVERY DAY for 30 Active Albuterol Sulfate HFA 108 (90 Base) MCG/ACT INHALE TWO PUFFS BY MOUTH EVERY 4 HOURS NEEDED for 30 Active Nystatin 863240 UNIT/GM APPLY FOUR TIMES A DAY UNDER THE LEFT BREAS T for 14 Active Ipratropium-Albuterol 0.5-2.5 (3) MG/3ML 3 ml Inhalati on every 6 hrs PRN for 30 days Dec, Active Metoclopramide HCl 10 MG 1 tablet before meals and be dtime Orally three times daily before meals for 30 days Jun, A ctive Triamcinolone Acetonide 0.1 % APPLY SMALL AMOUNT AFFEC YURI AREA(S) TWO TIMES A DAY NEEDED for 14 Active OneTouch Delica Plus Owamfr73C - USE 1 LANCET FOUR TIMES A D AY NEEDED for 50 Active Mometasone Furoate 50 MCG/ACT SPRAY TWO SPRAYS IN EACH NOSTR [place] EVERY DAY for 30 Active Amitriptyline HCl 50 MG TAKE ONE TABLET BY MOUTH NADINE MORNING AND 3 TABLETS BY MOUTH AT BEDTIME for 30 Active Saline Nasal [place] 0.65 % 1-2 sprays right nostril Sudeep ally 2-3 times a day for 7 day(s) Sep, Active BD Pen Needle Short U/F 31G X 8 MM USE 1 NEEDLE UNDER THE SKIN ONCE A DAY for 30 Active Test Strips - - Dx: E11.65 four times daily as needed for 30 Days Medicaid #: [id number] Jun, Active Sucralfate 1 GM TAKE ONE TABLET BY MOUTH TWICE A DAY WITH MEALS for 3 0 Active Sodium Chloride 0.9 % one application inside the R nostril every 2 hrs prn for 7 day(s) Mar, Active Medipore H Surgical 4"x10yd - as directed externally prn dx: z93.2 for 30 Days Oct, Active Simethicone 80 MG 2 tablets after meals and at bedtime as needed Orally three times a day as needed for abdominal pain and distention for 30 Active Mupirocin 2 % 1 application Externally Three times a day for 14 Active Senna 8.6 MG 1-2 tablets at bedtime as needed Orally qhs prn for 30 D ays Active Nebulizer Compressor 1 inh dx: J45.909 every 4 hours as needed f or day(s) August, Active Victoza 18 MG/3ML 1.8mg Subcutaneous Daily Mar, Active Aquaphor - apply to the perineal area a s needed Externally qid and as needed for 14 day(s) Jul, Active Levemir Flex Touch 100 UNIT/ML 50 units Subcutaneous in the morning for 30 Active Mupirocin 2 % 1 application to the left in dex finger Externally Three times a day for 10 day(s) Oct, Active Glucometer testing 4 times a day and as needed Dx: E11/65 for 30 days Medicaid #: [id number] Jun, Active Medipore H Surgical 4"x10yd - as directed May, Active Pen [place] 5/16" 31G X 8 MM as directed subcutaneousl y BID dx: E11.65 for 90 day(s) Jul, Active August Flakita Bags (29658) ICD:v55.3 change as needed ([place] nash) for 30 day(s) Active Nebulizer/Tubing/Mouthpiece - as directed dx: J45.909 every 4 hours as needed for 90 day(s) August, Active Lactulose 10 GM/15ML 10 ml Orally four a day for 30 day(s) Feb, Active May have flakita wafers flating flanges ICD: v55.3 ( 21879 2 1/2 change as needed ([place]) Active Syringe 2-3 ML 3 ML dx: r11.0 intramuscularly tid prn for 30 Day s Feb, Active PROCEDURES No Information RESULTS No Results REASON FOR VISIT sluggish ostomy MEDICAL (GENERAL) HISTORY Type Description Date Medical [...] Manageme nt) Medical History Personal history of provoked (post-surgical) venous thrombosis and embolism (resolved 12/19/2009) - off anticoagulation Medical History abdominal hernia Medical History Flexural Eczema Medical History Muscle Transplant in July Surgical History No personal hx of severe [...] replacement for stimulator 03/03 18 Surgical History Ventral Hernia 11/2020 Hospitalization History [facility]- small bowel obstruction, was [...] - small bowel obstruction 9 Hospitalization History [facility]- short gut syndrome 06/29/19 Hospitalization History [facility] - ilius vs small bowel obstructi on 09/2020 Hospitalization History [facility] - Ventral Hernia 11/2020 Goals Section No Information Health Concerns No Information MEDICAL EQUIPMENT No Information MENTAL STATUS No Information FUNCTIONAL STATUS No Information ASSESSMENTS No Information PLAN OF TREATMENT Medication Medication Name Sig Start Date Stop Date Senna 8.6 MG 1-2 tablets at bedtime as needed Orally qhs prn for 30 Days Next Appt Details Provider Name:Tutu Sanchez, 2020-12-0 2 10:30:00 AM, [address] [phone], [place], [address], Provider Name:Mathew Worthington, 2021-05-17 11:00:00 AM, [address] [facility] [address] [facility], , [place], [address], Insurance Providers Payer Name Payer Address Payer Phone Insured Name Patient Relati onship to Insured Coverage Start Date Coverage End Date [facility] [address] [facility] [id number] RUBA GRAFF,GLENN COOPER self
--- OUTSIDE RECORDS SUMMARY | 2021-03-23 18:52 | CCD ---
Author Author [facility] Organization [facility] Address Unknown Phone Unavailable Care Team Providers Care Nail Kegger Name Role Phone Tutu Sanchez Unavailable PROBLEMS Type Condition ICD9-CM Code ROL36-JZ Code Onset Dates Condition S tatus W/U Status Risk SNOMED Code Notes Problem Complicated headache syndromes G44.59 Active confir med 319877390 Problem Chronic maxillary sinusitis J32.0 Active confirmed 16909350 Problem Unspecified asthma J45.909 Active confirmed 994919139 Problem Chronic pain associated with significant psychos ocial dysfunction G89.4 Active confirmed 835713385 Problem Chronic nausea R11.0 Active confirmed 16300 7007 Problem Left lower quadrant pain R10.32 Active confirmed 702760564 Problem History of abdominal surgery Z98.890 Active confirm ed 901287485 Problem 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 Active confirm ed 94142196 Problem Internal hemorrhoids without mention of complication K64.8 Active confirmed 91037188 Problem Mixed hyperlipidemia E78.2 Active confirmed 203525338 Problem Viral warts, unspecified B07.9 Active confirmed 32237759 Problem Breast calcification seen on mammogram R92.1 A ctive confirmed 736272092 Problem Pelvic muscle wasting N81.84 Active confirmed 53007177 Problem Hypomagnesemia E83.42 Active confirmed 39288 5004 Problem Anemia, chronic disease D63.8 Active confirmed 460967069 Problem Dysfunction of eustachian tube, bilateral H69.83 Active confirmed 19191908 Problem Esophageal reflux K21.9 Active confirmed 23 2715933 Problem DM w/o complication type II E11.9 Active confirmed 521329145 Problem Low back pain M54.5 Active confirmed 149398 009 Problem DM w/o complication type II, uncontrolled E11.65 Active confirmed 17113057 Problem Occipital neuralgia M54.81 Active confirmed 26114261 Problem longterm (current) use of insulin Z79.4 Activ e confirmed 562780875 Problem Chronic prescription opiate use Z79.899 Active confirmed 806727432 Problem Granulomatous disorder of the skin and s ubcutaneous tissue, unspecified L92.9 Active confirmed 714335476 Problem Multiple drug allergies Z88.9 Active confirmed 583985117 Problem Port catheter in place Z95.828 Active confirmed 977115432 Problem Myalgia M79.1 Active confirmed 69732039 Problem Chronic kidney disease, stage III (moderate) N18.3 Active confirmed 897774821 Problem Type 2 diabetes mellitus with stage 3 chronic kidney disea se E11.22 Active confirmed 37656732 Problem Fatty liver K76.0 Active confirmed 71106189 7 Problem Ileostomy status Z93.2 Active confirmed 302 230358 Problem Encounter for care related to vascular access port Z45.2 Active confirmed 543604602 Problem Complex regional pain syndrome I of left lower limb G90.522 Active confirmed 524408586 Problem Type 2 diabetes mellitus without complications E11 .9 Active confirmed 393398144 Problem manager intermediate current use of insulin Z79.4 Active conf irmed 513659630 Problem Hypoglycemia E16.2 Active confirmed 0445844 03 Problem Myalgia, other site M79.18 Active confirmed 72540351 Problem Allergic rhinitis, unspecified seasonality, unspecifie d trigger J30.9 Active confirmed 30108687 Problem Constipation, unspecified constipation type K59.00 Active confirmed 39195278 Problem Pseudogout M11.20 Active confirmed 048047449 Problem Flexural eczema L20.82 Active confirmed 5709 2006 Problem Cervicalgia M54.2 Active confirmed 13671480 Problem Other chronic pain G89.29 Active confirmed 8 6407968 Problem Grief F43.20 Active confirmed 887021956 Problem Type 2 diabetes mellitus with hyperglycemia E11.65 Active confirmed 27191421 Problem Disorders of magnesium metabolism, unspecified E83 .40 Active confirmed 71256214 Problem Spinal cord stimulator status Z96.89 Active confirm ed 116508172 Problem Rosacea L71.9 Active confirmed 498851365 Problem Vaginal atrophy N95.2 Active confirmed 2971 80615 Problem Incisional hernia with obstruction but no gangrene K43.0 Active confirmed 043846579 Problem Falls frequently R29.6 Active confirmed 279 129273 ALLERGIES Allergen (clinical drug ingredient) Drug/Non Drug Allergy do cumented on EMR Reaction Allergy Type Onset Date Status morphine Morphine Sulfate(ND Code:[address]-63) severe h/a with big dose Drug Allergy Active codeine Codeine Sulfate(NDC Code:[address]-44) out of b vito experience Drug Allergy Active ketorolac Ketorolac Tromethamine(NDC Code:[address]-50) vomitin g Drug Allergy Active Gastrografin(NDC Code:[address]-88) Onl y 1 bottle per test day (can not tolerate any more than 1 bottle) Drug Allergy Active Penicillin (For Allergies Use Only) Hives Drug Allerg y Active tiagabine Gabitril(NDC Code:[address]-90) nervous Drug Allergy Active Baclofen affected nervous syt Drug Allergy Ac tive Vicodin Confusion Drug Allergy Active Phenothiazines Phenothiazines nervous system Drug Allergy Active red food dye rash Non Drug Allergy Active promethazine Promethazine HCl(NDC Code:[address]-73) out of body experience Drug Allergy Active Readi-Cat Hives Drug Allergy Active lorazepam Ativan(NDC Code:[address]-91) hallucinations Drug Allergy Active tizanidine Tizanidine HCl(NDC Code:[address]-71) Hives Drug All ergy Active droperidol Droperidol(NDC Code:[address]-33) out of body Drug Allerg y Active Latex Latex difficulty Drug Allergy Active iodine(NDC Code:92828-77195) nerves, tight muscles Drug Al lergy Active pregabalin Lyrica shakes, everything is black Drug Allergy Active nitrofurantoin, macrocrystals / nitrofurantoin, monohy drate Macrobid(NDC Code:[address]-03) Hives, blurred vision Drug Allergy Active azithromycin Azithromycin(NDC Code:[address]-43) hives Drug All ergy Active Sulfasalazine Sulfa Antibiotics Hives Drug Allergy Ac tive Oxycodone vomiting,hives Drug Allergy Active meperidine Meperidine HCl(NDC Code:[address]-28) out of dena dy experience Drug Allergy Active quinolones- cipro,tequin Hives Non Drug Allergy Active lidoderm (licocanine) heart races Non Drug Allergy Active gabapentin Gabapentin([facility] Code:[address]-10) nervous syste m,shakey Drug Allergy Active fentanyl Fentanyl(ND Code:[address]-89) nervous Drug Allergy Active tramadol Tramadol(ND Code:[address]-02) shakes Drug Allergy Active albuterol Albuterol Sulfate([facility] Code:[address]-04) cough Drug Allergy Active aspirin Aspirin(ND Code:[address]-99) Hives Drug Allergy Active ENCOUNTERS from 1960 to 2021-02-23 Encounter Location Date Provider Diagnosis [address] [phone] [place] [address] 08 Feb, 2021 Tutu Sanchez IMMUNIZATIONS Vaccine Route Administration Date Status Hepatitis A & B 1mL Twinrix IM Intramuscular October 02, 2011 Adm inistered Hepatitis A & B 1mL Twinrix IM Intramuscular Feb 11, 2012 Adm inistered Hepatitis A & B 1mL Twinrix IM Intramuscular Apr 15, 2012 Adm inistered Pneumococcal Adult 0.5mL Pneumovax 23 IM Intramuscular September 25, 2018 Administered TDAP Unknown September 13, 2009 Administered Pneumococcal [...] Education Language: Question Answer Notes Languages spoken: Omani Mosque: Question Answer Notes [facility] Sexual Hx: Question Answer Notes [...] Notes Start Da te End Date Status DuoDERM CGF Dressing - 1 packet Externally Daily for 14 day(s) Oct, Active Test Strips - - Dx: E11.65 four times daily as needed for 30 Days Medicaid #: [id number] Jun, Active Alcohol Prep Pad 70 % as directed E11.9 test blood sugar QID PRN for 50 Active Triamcinolone Acetonide 0.1 % APPLY SMALL AMOUNT AFFEC YURI AREA(S) TWO TIMES A DAY NEEDED for 14 Active Nystatin 704543 UNIT/GM 1 application Externally Twice a day for 15 Active Metoclopramide HCl 10 MG 1 tablet before meals and be dtime Orally three times daily before meals for 30 days Jun, A ctive Nystatin 192192 UNIT/GM APPLY TO AFFECTED AREA(S) AR OUND STOMA 2 TIMES A DAY DIRECTED UNTIL HEALED Externally Twice a day for 14 days Not-Taking Mupirocin 2 % apply a small amount to righ t nostril with q-tip Externally twice a day for 7 days Sep, Active Aquaphor - apply to the perineal area a s needed Externally qid and as needed for 14 day(s) Jul, Active Sodium Chloride 0.9 % one application inside the R nostril every 2 hrs prn for 7 day(s) Mar, Active Baby Wipes 1 ander-stoma cleanser and adhe sive remover topically prn dx:Z93.2 for 90 days Active Ipratropium-Albuterol 0.5-2.5 (3) MG/3ML 3 ml Inhalati on every 6 hrs PRN for 30 days Dec, Active Ammonium Lactate 12 % 1 application Externally Twice a day to feet fo r 30 Active Nebulizer Compressor 1 inh dx: J45.909 every 4 hours as needed f or 90 day(s) August, Active Hospital bed use daily as directed dx: K9 1.2, G89.4, G90.522, N81.84 for 99 days May, Active HYDROmorphone HCl 2 MG 2 tablet as needed Orally every 6 hrs for 7 days Feb, Active Lactulose 10 GM/15ML 10 ml Orally four a day for 30 day(s) Feb, Active Nebulizer/Tubing/Mouthpiece - as directed dx: J45.909 every 4 hours as needed for 90 day(s) August, Active Levemir Flex Touch 100 UNIT/ML 50 units Subcutaneous in the morning for 30 Active Victoza 18 MG/3ML 1.8mg Subcutaneous Daily Mar, Active Medipore H Surgical 4"x10yd - as directed externally prn dx: z93.2 for 30 Days Oct, Active Pen [place] 5/16" 31G X 8 MM as directed subcutaneousl y BID dx: E11.65 for 90 day(s) Jul, Active Mupirocin 2 % 1 application to the left in dex finger Externally Three times a day for 10 day(s) Oct, Active Pedialyte bottle 330 ml Orally three times daily for 30 days Not-Taking Syringe 2-3 ML 3 ML dx: r11.0 intramuscularly tid prn for 30 Day s Feb, Active Ciclopirox 8 % 1 application to the l 5th f ingernail Externally Once a day, clean off with an alcohol prep pad once a week for 90 day(s) Mar, Not-Taking May have jerome wafers flating flanges ICD: v55.3 ( 35841 2 1/2 change as needed (Tatianna) Active Nystatin 706690 UNIT/GM 1 application Externally Four times a da y for 30 days Oct, Active Amitriptyline HCl 50 MG as directed Orally 1 tab in am and 3 tabs at bedtime for 30 Days Active HYDROmorphone HCl 2 MG 2 tablets as needed Orally every 6 hr s for 7 days MDD of 8 mg please. Nov, Not-Taking Hydrocodone-Chlorpheniramine 5ml orally q12h prn for 11 days Jan, Not-Taking Saline Nasal [place] 0.65 % 1-2 sprays right nostril Sudeep ally 2-3 times a day for 7 day(s) Sep, Active Mupirocin 2 % 1 application Externally Three times a day for 14 Active Neosporin LT apply topically twice a day for 7 days Oct Not-Taking Mesalamine 1000 MG 1 suppository at bedtime Rectal Once a day fo r 30 day(s) Mar, Not-Taking August Norris Bags (74776) ICD:v55.3 change as needed (Payton cao) for 30 day(s) Active Tessalon Perles 100 MG 1 capsule as needed Orally T hree times a day for 10 day(s) Dec, Not-Taking Neosporin Pain Relieving [place] 1 topical twice for 7 days Oct, Not-Taking Glucometer testing 4 times a day and as needed Dx: E11/65 for 30 days Medicaid #: [id number] Jun, Active Senna 8.6 MG 2 tablets at bedtime as needed Orally Once a day x 10 da ys Active Pedialyte - 360ml Orally TID for 30 Days Jul, Not-Taking Medipore H Surgical 4"x10yd - as directed May, Active Ondansetron HCl 4 MG/2ML INJECT 1 VIAL [4MG] TWO TIME S A DAY AT LEAST 8 HOURS APART DIRECTED for 30 Active Cephalexin 500 MG 1 capsule Orally every 6 hrs for 7 days August, Active Benzonatate 100 MG 1 capsule as needed Orally Three times a day for 10 days Dec, Not-Taking HYDROmorphone HCl 2 MG 2 tablet as needed Orally ev isaura 6 hrs MDD:4 for 14 day(s) Nov, Not-Taking Cavilon spray Apply a uniform coating of f ilm over the ostomy region topically Daily and as needed Dx: Z93.2 for 28 day(s) Oct, Active OneTouch Delica Plus [id number] - USE 1 LANCET FOUR TIMES A D AY NEEDED for 50 Active Estradiol 0.1 MG/GM _insert ONE GRAM VAGINALLY EVERY DAY for 30 Active Dicyclomine HCl 10 MG TAKE ONE CAPSULE BY MOUTH FOUR TIMES A DAY for 30 Active Cephalexin 500 MG 1 capsule Orally Four times a day Not-Taking [facility] Magnesium Oxide 250 MG 1 tablet with food Orally Once a day for 5 days Jan, Active Zofran 4 MG/2ML 4 mg Injection TID at least 6h apart for 30 Days Nov, Active Nystatin Powder 474176 UNIT/GM apply Externally four t imes a day under the left breast for 14 day(s) Oct, Active Mometasone Furoate 50 MCG/ACT SPRAY TWO SPRAYS IN EACH NOSTR [place] EVERY DAY for 30 Active Albuterol Sulfate HFA 108 (90 Base) MCG/ACT INHALE TWO PUFFS BY MOUTH EVERY 4 HOURS NEEDED for 30 Active Sucralfate 1 GM TAKE ONE TABLET BY MOUTH TWICE A DAY WITH MEALS for 3 0 Active BD Pen Needle Short U/F 31G X 8 MM USE 1 NEEDLE UNDER THE SKIN ONCE A DAY for 30 Active Simethicone 80 MG 2 tablets after meals and at bedtime as needed Orally three times a day as needed for abdominal pain and distention for 30 Active PROCEDURES No Information RESULTS No Results REASON FOR VISIT PT referral MEDICAL (GENERAL) HISTORY Type Description Date Medical [...] small bowel obstructi on 09/2020 Hospitalization History [facility] 11/2020 Goals Section No Information Health Concerns No Information MEDICAL EQUIPMENT No Information MENTAL STATUS No Information FUNCTIONAL STATUS No Information ASSESSMENTS No Information PLAN OF TREATMENT Medication Medication Name Sig Start Date Stop Date Test Strips - - Dx: E11.65 four times daily as needed for 30 D ays Jun, Lactulose 10 GM/15ML 10 ml Orally four a day for 30 day(s) 08 2020 Baby Wipes 1 ander-stoma cleanser and adhe sive remover topically prn dx:Z93.2 for 90 days Next Appt Details Provider Name:Tutu Atkinsond, 2 10:30:00 AM, [address] [facility], , [place], [address], Provider Name:Mathew Worthington, 2021-05-17 11:00:00 AM, [address] [facility] [address] [facility], , [place], [address], Insurance Providers Payer Name Payer Address Payer Phone Insured Name Patient Relati onship to Insured Coverage Start Date Coverage End Date [facility] [address] [place] [address] RUBA GRAFF,GLENN COOPER self
--- OUTSIDE RECORDS SUMMARY | 2021-03-23 18:52 | CCD ---
Author Author [facility] Organization [facility] Address Unknown Phone Unavailable Care Team Providers Care Water Softener Installer Name Role Phone Tutu Sanchez Unavailable PROBLEMS Type Condition ICD9-CM Code TRG75-WO Code Onset Dates Condition S tatus W/U Status Risk SNOMED Code Notes Problem Complicated headache syndromes G44.59 Active confir med 090245650 Problem Chronic maxillary sinusitis J32.0 Active confirmed 75714493 Problem Unspecified asthma J45.909 Active confirmed 700274593 Problem Chronic pain associated with significant psychos ocial dysfunction G89.4 Active confirmed 744001086 Problem Chronic nausea R11.0 Active confirmed 59600 7007 Problem Left lower quadrant pain R10.32 Active confirmed 766059503 Problem History of abdominal surgery Z98.890 Active confirm ed 658880865 Problem 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 Active confirm ed 44826250 Problem Internal hemorrhoids without mention of complication K64.8 Active confirmed 75791040 Problem Mixed hyperlipidemia E78.2 Active confirmed 042325041 Problem Viral warts, unspecified B07.9 Active confirmed 25005455 Problem Breast calcification seen on mammogram R92.1 A ctive confirmed 758578147 Problem Pelvic muscle wasting N81.84 Active confirmed 98238097 Problem Hypomagnesemia E83.42 Active confirmed 97585 5004 Problem Anemia, chronic disease D63.8 Active confirmed 827446203 Problem Dysfunction of eustachian tube, bilateral H69.83 Active confirmed 58690093 Problem Esophageal reflux K21.9 Active confirmed 23 9779948 Problem DM w/o complication type II E11.9 Active confirmed 242882045 Problem Low back pain M54.5 Active confirmed 002038 009 Problem DM w/o complication type II, uncontrolled E11.65 Active confirmed 74533738 Problem Occipital neuralgia M54.81 Active confirmed 86346394 Problem penitentiary (current) use of insulin Z79.4 Activ e confirmed 904469510 Problem Chronic prescription opiate use Z79.899 Active confirmed 795359434 Problem Granulomatous disorder of the skin and s ubcutaneous tissue, unspecified L92.9 Active confirmed 630381448 Problem Multiple drug allergies Z88.9 Active confirmed 417085668 Problem Port catheter in place Z95.828 Active confirmed 083640049 Problem Myalgia M79.1 Active confirmed 48246414 Problem Chronic kidney disease, stage III (moderate) N18.3 Active confirmed 880821669 Problem Type 2 diabetes mellitus with stage 3 chronic kidney disea se E11.22 Active confirmed 91464753 Problem Fatty liver K76.0 Active confirmed 20132111 7 Problem Ileostomy status Z93.2 Active confirmed 302 297251 Problem Encounter for care related to vascular access port Z45.2 Active confirmed 866391287 Problem Complex regional pain syndrome I of left lower limb G90.522 Active confirmed 933080287 Problem Type 2 diabetes mellitus without complications E11 .9 Active confirmed 756514859 Problem terminal superintendent current use of insulin Z79.4 Active conf irmed 823630438 Problem Hypoglycemia E16.2 Active confirmed 6404218 03 Problem Myalgia, other site M79.18 Active confirmed 85390698 Problem Allergic rhinitis, unspecified seasonality, unspecifie d trigger J30.9 Active confirmed 70110650 Problem Constipation, unspecified constipation type K59.00 Active confirmed 78109076 Problem Pseudogout M11.20 Active confirmed 779057922 Problem Flexural eczema L20.82 Active confirmed 5709 2006 Problem Cervicalgia M54.2 Active confirmed 40254672 Problem Other chronic pain G89.29 Active confirmed 8 1682980 Problem Grief F43.20 Active confirmed 099758034 Problem Type 2 diabetes mellitus with hyperglycemia E11.65 Active confirmed 57825804 Problem Disorders of magnesium metabolism, unspecified E83 .40 Active confirmed 84820698 Problem Spinal cord stimulator status Z96.89 Active confirm ed 023356853 Problem Rosacea L71.9 Active confirmed 663806856 Problem Vaginal atrophy N95.2 Active confirmed 2971 60255 Problem Incisional hernia with obstruction but no gangrene K43.0 Active confirmed 139575886 Problem Falls frequently R29.6 Active confirmed 279 300648 ALLERGIES Allergen (clinical drug ingredient) Drug/Non Drug Allergy do cumented on EMR Reaction Allergy Type Onset Date Status morphine Morphine Sulfate(ND Code:[address]-45) severe h/a with big dose Drug Allergy Active codeine Codeine Sulfate(NDC Code:[address]-32) out of b vito experience Drug Allergy Active ketorolac Ketorolac Tromethamine(NDC Code:[address]-46) vomitin g Drug Allergy Active Gastrografin(NDC Code:[address]-97) Onl y 1 bottle per test day (can not tolerate any more than 1 bottle) Drug Allergy Active Penicillin (For Allergies Use Only) Hives Drug Allerg y Active tiagabine Gabitril(ND Code:[address]-63) nervous Drug Allergy Active baclofen Baclofen(NDC Code:[address]-90) affected nervous syt Drug Allergy Active Vicodin Confusion Drug Allergy Active Phenothiazines Phenothiazines nervous system Drug Allergy Active red food dye rash Non Drug Allergy Active promethazine Promethazine HCl(NDC Code:[address]-15) out of body experience Drug Allergy Active Readi-Cat Hives Drug Allergy Active lorazepam Ativan(NDC Code:[address]-26) hallucinations Drug Allergy Active tizanidine Tizanidine HCl(NDC Code:[address]-82) Hives Drug All ergy Active droperidol Droperidol(NDC Code:[address]-72) out of body Drug Allerg y Active Latex Latex difficulty Drug Allergy Active iodine(NDC Code:79698-97090) nerves, tight muscles Drug Al lergy Active pregabalin Lyrica shakes, everything is black Drug Allergy Active nitrofurantoin, macrocrystals / nitrofurantoin, monohy drate Macrobid(NDC Code:[address]-19) Hives, blurred vision Drug Allergy Active azithromycin Azithromycin(NDC Code:[address]-77) hives Drug All ergy Active Sulfasalazine Sulfa Antibiotics Hives Drug Allergy Ac tive Oxycodone vomiting,hives Drug Allergy Active meperidine Meperidine HCl([facility] Code:[address]-01) out of dena dy experience Drug Allergy Active quinolones- cipro,tequin Hives Non Drug Allergy Active lidoderm (licocanine) heart races Non Drug Allergy Active gabapentin Gabapentin(NDC Code:[address]-94) nervous syste m,shakey Drug Allergy Active fentanyl Fentanyl(NDC Code:[address]-69) nervous Drug Allergy Active tramadol Tramadol(NDC Code:[address]-97) shakes Drug Allergy Active albuterol Albuterol Sulfate(NDC Code:[address]-44) cough Drug Allergy Active aspirin Aspirin(ND Code:[address]-77) Hives Drug Allergy Active ENCOUNTERS from 1960 to 2021-03-19 Encounter Location Date Provider Diagnosis [place] [id number] [facility] [phone] [place] [address] Feb, Tutu Laura Ileostomy status Z93.2 ; Spi nal cord stimulator status Z96.89 ; Hypomagnesemia E83.42 and Physical debility R53.81 IMMUNIZATIONS Vaccine Route Administration Date Status Hepatitis [...] Education Language: Question Answer Notes Languages spoken: [place] Adventist: Question Answer Notes [facility]ist [facility] [employer] Sexual Hx: Question Answer Notes [...] FOR REFERRAL No Information VITAL SIGNS Weight 158.4 lbs Feb, Weight-kg 71.85 kg Feb, Height 67 in Feb, BMI 24.81 kg/m2 Feb, Heart Rate 94 /min Feb, Respiratory Rate 18 /min Feb, Temperature 97.6 degrees Fahrenheit Feb, Oximetry 100 Feb, Blood pressure systolic 144 mm Hg Feb, Blood pressure diastolic 70 mm Hg Feb, MEDICATIONS Medication SIG (Take, Route, Frequency, Duration) Notes Start Da te End Date Status [facility] Magnesium Oxide 250 MG 1 tablet with food Orally Once a day for 5 days Jan, Active DuoDERM CGF Dressing - 1 packet Externally Daily for 14 day(s) Oct, Active Senna 8.6 MG 1-2 tablets at bedtime as needed Orally qhs prn for 30 D ays Active Syringe 2-3 ML 3 ML dx: r11.0 intramuscularly tid prn for 30 Day s Feb, Active Aquaphor - apply to the perineal area a s needed Externally qid and as needed for 14 day(s) Jul, Active Triamcinolone Acetonide 0.1 % APPLY SMALL AMOUNT AFFEC YURI AREA(S) TWO TIMES A DAY NEEDED for 14 Active Medipore H Surgical 4"x10yd - as directed May, Active Ipratropium-Albuterol 0.5-2.5 (3) MG/3ML 3 ml Inhalati on every 6 hrs PRN for 30 days Dec, Active Amitriptyline HCl 50 MG TAKE ONE TABLET BY MOUTH NADINE RY MORNING AND 3 TABLETS BY MOUTH AT BEDTIME for 30 Active Medipore H Surgical 4"x10yd - as directed externally prn dx: z93.2 for 30 Days Oct, Active Mupirocin 2 % 1 application Externally Three times a day for 14 Active Test Strips - - Dx: E11.65 four times daily as needed for 30 Days Medicaid #: [id number] Jun, Active Mupirocin 2 % 1 application to the left in dex finger Externally Three times a day for 10 day(s) Oct, Active Dicyclomine HCl 10 MG TAKE ONE CAPSULE BY MOUTH FOUR TIMES A DAY for 30 Active Nystatin 979881 UNIT/GM APPLY FOUR TIMES A DAY UNDER THE LEFT BREAS T for 14 Active August [place] Bags (40926) ICD:v55.3 change as needed (Payton cao) for 30 day(s) Active Victoza 18 MG/3ML 1.8mg Subcutaneous Daily Mar, Active Cavilon spray Apply a uniform coating of f ilm over the ostomy region topically Daily and as needed Dx: Z93.2 for 28 day(s) Oct, Active Pen Brule 5/16" 31G X 8 MM as directed subcutaneousl y BID dx: E11.65 for 90 day(s) Jul, Active May have jerome wafers flating flanges ICD: v55.3 ( 26953 2 1/2 change as needed (Tatianna) Active Levemir Flex Touch 100 UNIT/ML 50 units Subcutaneous in the morning for 30 Active Nebulizer/Tubing/Mouthpiece - as directed dx: J45.909 every 4 hours as needed for 90 day(s) August, Active Alcohol Prep Pad 70 % as directed E11.9 test blood sugar QID PRN for 50 Active BD Pen Needle Short U/F 31G X 8 MM USE 1 NEEDLE UNDER THE SKIN ONCE A DAY for 30 Active Simethicone 80 MG 2 tablets after meals and at bedtime as needed Orally three times a day as needed for abdominal pain and distention for 30 Active Ammonium Lactate 12 % 1 application Externally Twice a day to feet fo r 30 Active Saline Nasal [place] 0.65 % 1-2 sprays right nostril Sudeep ally 2-3 times a day for 7 day(s) Sep, Active Sucralfate 1 GM TAKE ONE TABLET BY MOUTH TWICE A DAY WITH MEALS for 3 0 Active Mometasone Furoate 50 MCG/ACT SPRAY TWO SPRAYS IN EACH NOSTR IL EVERY DAY for 30 Active Baby Wipes 1 ander-stoma cleanser and adhe sive remover topically prn dx:Z93.2 for 90 days Active Lactulose 10 GM/15ML 10 ml Orally four a day for 30 day(s) Feb, Active Zofran 4 MG/2ML 4 mg Injection TID at least 6h apart for 30 Days Nov, Active Sodium Chloride 0.9 % one application inside the R nostril every 2 hrs prn for 7 day(s) Mar, Active Albuterol Sulfate HFA 108 (90 Base) MCG/ACT INHALE TWO PUFFS BY MOUTH EVERY 4 HOURS NEEDED for 30 Active Metoclopramide HCl 10 MG 1 tablet before meals and be dtime Orally three times daily before meals for 30 days Jun, A ctive Nystatin Powder 428522 UNIT/GM apply Externally four t imes a day under the left breast for 14 day(s) Oct, Active Glucometer testing 4 times a day and as needed Dx: E11/65 for 30 days Medicaid #: [id number] Jun, Active Nebulizer Compressor 1 inh dx: J45.909 every 4 hours as needed f or 90 day(s) August, Active OneTouch Delica Plus [id number] - USE 1 LANCET FOUR TIMES A D AY NEEDED for 50 Active Estradiol 0.1 MG/GM _insert ONE GRAM VAGINALLY EVERY DAY for 30 Active Hospital bed use daily as directed dx: K9 1.2, G89.4, G90.522, N81.84 for 99 days May, Active PROCEDURES No Information RESULTS No Results REASON FOR VISIT bulge on L abdomen MEDICAL (GENERAL) HISTORY Type Description Date Medical [...] [facility] - small bowel obstruction Hospitalization [facility]- short gut syndrome 06/29/19 Hospitalization History [facility] - ilius vs small bowel obstructi on 09/2020 Hospitalization History [facility] - Ventral Hernia 11/2020 Goals Section No Information Health Concerns No Information MEDICAL EQUIPMENT No Information MENTAL STATUS No Information FUNCTIONAL STATUS No Information ASSESSMENTS Encounter Date Diagnosis Assessment Notes Treatment Notes Treatm ent Clinical Notes Feb, Ileostomy status (ICD-10 - Z93.2) Her ileostomy seems to be functioning. Its not as robust as it has been, but it is not being obstructed either. She does not have a ventral herniation developing as of yet. She does have an area of abdominal wall weakness that is more tender. Feb, Spinal cord stimulator status (ICD-10 - Z96.89) She has a spinal cord stimulator in, but is concerned that it is not working well for her because her legs have a been increasingly spastic recently. She states she has an appointment with the [employer] front office representative to assess whether it is functioning properly tomorrow. Feb, Hypomagnesemia (ICD-10 - E83.42) I will send lab orders for additional evaluation of her magnesium level based on her history of significant hypomagnesemia in the past. Feb, Physical debility (ICD-10 - R53.81) She has had a referral for physical therapy evaluation for consideration for a motorized wheelchair. I have been avoiding this for some time is I think she will do better walking. However, at this point I do believe her physical debility and the potentially malfunction of her spinal cord stimulator have gotten to the point where she does need additional support. PLAN OF TREATMENT Treatment Notes Assessment Notes Clinical Notes Ileostomy status Her ileostomy seems to be functioning. Its not as robust as it has been, but it is not being obstructed either. She does not have a ventral herniation developing as of yet. She does have an area of abdominal wall weakness that is more tender. Spinal cord stimulator status She has a spinal cord stimulator in, but is concerned that it is not working well for her because her legs have a been increasingly spastic recently. She states she has an appointment with the [employer] front office representative to assess whether it is functioning properly tomorrow. Hypomagnesemia I will send lab orde rs for additional evaluation of her magnesium level based on her history of significant hypomagnesemia in the past. Physical debility She has had a referr al for physical therapy evaluation for consideration for a motorized wheelchair. I have been avoiding this for some time is I think she will do better walking. However, at this point I do believe her physical debility and the potentially malfunction of her spinal cord stimulator have gotten to the point where she does need additional support. Next Appt Details 4 Weeks Reason:as scheduled Provider Name:Tutu Sanchez, 2021-04-14 4 10:00:00 AM, [address] [facility], , [place], [address], Provider Name:Mathew Worthington, 2021-05-17 11:00:00 AM, [address] [facility] [address], , [place], [address], Follow Up:4 Weeksas scheduled Insurance Providers Payer Name Payer Address Payer Phone Insured Name Patient Relati onship to Insured Coverage Start Date Coverage End Date [facility] [address] [facility] [phone] RUBA GRAFF,GLENN medina
--- OUTSIDE RECORDS SUMMARY | 2021-03-23 18:52 | CCD ---
Author Author [facility] Organization [facility] Address Unknown Phone Unavailable Care Team Providers Care Recreational Vehicle Repairer Name Role Phone CorneliusTutu Unavailable PROBLEMS ALLERGIES ENCOUNTERS from 1960 to 2021-02-14 IMMUNIZATIONS SOCIAL HISTORY REASON FOR REFERRAL No Information VITAL SIGNS MEDICATIONS PROCEDURES No Information RESULTS No Results REASON FOR VISIT MEDICAL (GENERAL) HISTORY Goals Section Health Concerns MEDICAL EQUIPMENT No Information MENTAL STATUS FUNCTIONAL STATUS ASSESSMENTS No Information PLAN OF TREATMENT Insurance Providers
--- OUTSIDE RECORDS SUMMARY | 2021-03-23 18:52 | CCD ---
Author Author [facility] Organization [facility] Address Unknown Phone Unavailable Care Team Providers Care Lamination Operator Name Role Phone Tutu Sanchez Unavailable PROBLEMS ALLERGIES ENCOUNTERS from 1960 to 2021-02-28 IMMUNIZATIONS SOCIAL HISTORY REASON FOR REFERRAL No Information VITAL SIGNS MEDICATIONS PROCEDURES No Information RESULTS No Results REASON FOR VISIT MEDICAL (GENERAL) HISTORY Goals Section Health Concerns MEDICAL EQUIPMENT No Information MENTAL STATUS FUNCTIONAL STATUS ASSESSMENTS PLAN OF TREATMENT Insurance Providers
--- OUTSIDE RECORDS SUMMARY | 2021-03-23 18:52 | CCD ---
Author Author [facility] Organization [facility] Address Unknown Phone Unavailable Care Team Providers Care Dining Room Host/Hostess Name Role Phone Tutu Sanchez Unavailable PROBLEMS Type Condition ICD9-CM Code USC91-OW Code Onset Dates Condition S tatus W/U Status Risk SNOMED Code Notes Problem Complicated headache syndromes G44.59 Active confir med 114915659 Problem Chronic maxillary sinusitis J32.0 Active confirmed 75820036 Problem Unspecified asthma J45.909 Active confirmed 673052141 Problem Chronic pain associated with significant psychos ocial dysfunction G89.4 Active confirmed 213098276 Problem Chronic nausea R11.0 Active confirmed 07530 7007 Problem Left lower quadrant pain R10.32 Active confirmed 560744991 Problem History of abdominal surgery Z98.890 Active confirm ed 673041449 Problem 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 Active confirm ed 62613998 Problem Internal hemorrhoids without mention of complication K64.8 Active confirmed 70522858 Problem Mixed hyperlipidemia E78.2 Active confirmed 313077443 Problem Viral warts, unspecified B07.9 Active confirmed 55937879 Problem Breast calcification seen on mammogram R92.1 A ctive confirmed 763542349 Problem Pelvic muscle wasting N81.84 Active confirmed 27630321 Problem Hypomagnesemia E83.42 Active confirmed 40623 5004 Problem Anemia, chronic disease D63.8 Active confirmed 035657085 Problem Dysfunction of eustachian tube, bilateral H69.83 Active confirmed 27784309 Problem Esophageal reflux K21.9 Active confirmed 23 2465360 Problem DM w/o complication type II E11.9 Active confirmed 237074549 Problem Low back pain M54.5 Active confirmed 205553 009 Problem DM w/o complication type II, uncontrolled E11.65 Active confirmed 35324371 Problem Occipital neuralgia M54.81 Active confirmed 92746332 Problem snf (current) use of insulin Z79.4 Activ e confirmed 759748407 Problem Chronic prescription opiate use Z79.899 Active confirmed 887865420 Problem Granulomatous disorder of the skin and s ubcutaneous tissue, unspecified L92.9 Active confirmed 044466385 Problem Multiple drug allergies Z88.9 Active confirmed 921810886 Problem Port catheter in place Z95.828 Active confirmed 347416603 Problem Myalgia M79.1 Active confirmed 05167901 Problem Chronic kidney disease, stage III (moderate) N18.3 Active confirmed 569382844 Problem Type 2 diabetes mellitus with stage 3 chronic kidney disea se E11.22 Active confirmed 89647697 Problem Fatty liver K76.0 Active confirmed 42246675 7 Problem Ileostomy status Z93.2 Active confirmed 302 122172 Problem Encounter for care related to vascular access port Z45.2 Active confirmed 342806216 Problem Complex regional pain syndrome I of left lower limb G90.522 Active confirmed 893883700 Problem Type 2 diabetes mellitus without complications E11 .9 Active confirmed 916631225 Problem manager long term care current use of insulin Z79.4 Active conf irmed 250176916 Problem Hypoglycemia E16.2 Active confirmed 0019044 03 Problem Myalgia, other site M79.18 Active confirmed 01295578 Problem Allergic rhinitis, unspecified seasonality, unspecifie d trigger J30.9 Active confirmed 52156794 Problem Constipation, unspecified constipation type K59.00 Active confirmed 94269468 Problem Pseudogout M11.20 Active confirmed 643333583 Problem Flexural eczema L20.82 Active confirmed 5709 2006 Problem Cervicalgia M54.2 Active confirmed 63990013 Problem Other chronic pain G89.29 Active confirmed 8 6551575 Problem Grief F43.20 Active confirmed 296000764 Problem Type 2 diabetes mellitus with hyperglycemia E11.65 Active confirmed 87650005 Problem Disorders of magnesium metabolism, unspecified E83 .40 Active confirmed 81976010 Problem Spinal cord stimulator status Z96.89 Active confirm ed 164768612 Problem Rosacea L71.9 Active confirmed 936555936 Problem Vaginal atrophy N95.2 Active confirmed 2971 22750 Problem Incisional hernia with obstruction but no gangrene K43.0 Active confirmed 450253406 Problem Falls frequently R29.6 Active confirmed 279 097958 ALLERGIES Allergen (clinical drug ingredient) Drug/Non Drug Allergy do cumented on EMR Reaction Allergy Type Onset Date Status morphine Morphine Sulfate(ND Code:[address]-93) severe h/a with big dose Drug Allergy Active codeine Codeine Sulfate(NDC Code:[address]-49) out of b vito experience Drug Allergy Active ketorolac Ketorolac Tromethamine(NDC Code:[address]-07) vomitin g Drug Allergy Active Gastrografin(NDC Code:[address]-91) Onl y 1 bottle per test day (can not tolerate any more than 1 bottle) Drug Allergy Active Penicillin (For Allergies Use Only) Hives Drug Allerg y Active tiagabine Gabitril(ND Code:[address]-72) nervous Drug Allergy Active baclofen Baclofen(NDC Code:[address]-67) affected nervous syt Drug Allergy Active Vicodin Confusion Drug Allergy Active Phenothiazines Phenothiazines nervous system Drug Allergy Active red food dye rash Non Drug Allergy Active promethazine Promethazine HCl(NDC Code:[address]-91) out of body experience Drug Allergy Active Readi-Cat Hives Drug Allergy Active lorazepam Ativan(NDC Code:[address]-12) hallucinations Drug Allergy Active tizanidine Tizanidine HCl(NDC Code:[address]-12) Hives Drug All ergy Active droperidol Droperidol(NDC Code:[address]-91) out of body Drug Allerg y Active Latex Latex difficulty Drug Allergy Active iodine(NDC Code:27320-46073) nerves, tight muscles Drug Al lergy Active pregabalin Lyrica shakes, everything is black Drug Allergy Active nitrofurantoin, macrocrystals / nitrofurantoin, monohy drate Macrobid(NDC Code:[address]-51) Hives, blurred vision Drug Allergy Active azithromycin Azithromycin(NDC Code:[address]-74) hives Drug All ergy Active Sulfasalazine Sulfa Antibiotics Hives Drug Allergy Ac tive Oxycodone vomiting,hives Drug Allergy Active meperidine Meperidine HCl([facility] Code:[address]-91) out of [place] experience Drug Allergy Active quinolones- cipro,tequin Hives Non Drug Allergy Active lidoderm (licocanine) heart races Non Drug Allergy Active gabapentin Gabapentin(NDC Code:[address]-26) nervous syste m,shakey Drug Allergy Active fentanyl Fentanyl(NDC Code:[address]-60) nervous Drug Allergy Active tramadol Tramadol(NDC Code:[address]-29) shakes Drug Allergy Active albuterol Albuterol Sulfate(NDC Code:[address]-39) cough Drug Allergy Active aspirin Aspirin(NDC Code:[address]-99) Hives Drug Allergy Active ENCOUNTERS from 1960 to 2021-03-07 Encounter Location Date Provider Diagnosis [place] [address] [facility] [phone] [place] [address] Feb, Tutu Sanchez IMMUNIZATIONS Vaccine Route Administration Date Status Influenza 6mo & up Fluzone IM Intramuscular Jan 20, 2015 Admi nistered Influenza 6mo & up Fluzone IM Intramuscular Feb 03, 2017 Admi nistered Pneumococcal Adult 0.5mL Pneumovax 23 IM Intramuscular September 25, 2018 Administered Hepatitis A & B 1mL Twinrix IM Intramuscular Apr 15, 2012 Adm inistered Hepatitis A & B 1mL Twinrix IM Intramuscular October 02, 2011 Adm inistered Hepatitis A & B 1mL Twinrix IM Intramuscular Feb 11, 2012 Adm inistered Pneumococcal Adult 0.5mL Pneumovax 23 IM Intramuscular Feb 22 013 Administered Influenza 6mo & up Fluzone IM Intramuscular Jan 12, 2010 Admi nistered Influenza 18 yrs & older Flublok IM Intramuscular Jan 23, 2018 Administered Influenza 18 yrs & older Flublok IM Intramuscular Jan 30, 2021 Administered Pneumococcal Adult 0.5mL Pneumovax 23 Unknown Jan 26 16 Administered TDAP Unknown September 13, 2009 Administered TD PED 0.5mL Tetanus Unknown October 12, 2005 Administere d Influenza 6mo & up Fluzone Unknown Jan [...] Education Language: Question Answer Notes Languages spoken: Syriac Quaker: 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 [employer] [...] dx:Z93.2 for 90 days Active Nystatin Powder 966348 UNIT/GM apply Externally four t imes a [...] 4 HOURS NEEDED for 30 Active Nystatin 842020 UNIT/GM APPLY FOUR TIMES A DAY UNDER [...] NEEDED for 14 Active OneTouch Delica Plus [id number] - USE 1 LANCET FOUR TIMES A D AY NEEDED for 50 Active Mometasone Furoate 50 MCG/ACT SPRAY TWO SPRAYS IN EACH NOSTR [place] EVERY DAY for 30 Active Amitriptyline HCl 50 MG TAKE ONE TABLET BY MOUTH NADINE RY MORNING AND 3 TABLETS BY MOUTH AT BEDTIME for 30 Active Saline Nasal [place] 0.65 % 1-2 sprays right nostril Sudeep ally 2-3 times a day for 7 day(s) Sep, Active BD Pen Needle Short U/F 31G X 8 MM USE 1 NEEDLE UNDER THE SKIN ONCE A DAY for 30 Active Test Strips - - Dx: E11.65 four times daily as needed for 30 Days Medicaid #: [id number] Jun, Active Sucralfate 1 GM TAKE ONE [...] 90 day(s) August, Active Victoza 18 MG/3ML 1.8mg [...] a day and as needed Dx: E11 for 30 days Medicaid #: [id number] Jun, Active Medipore H Surgical 4"x10yd - as directed May, Active Pen [place] 5/16" 31G X 8 MM as directed subcutaneousl y BID dx: E11.65 for 90 day(s) Jul, Active August Flakita Bags (53360) ICD:v55.3 change as needed ([place] nash) for 30 day(s) Active Nebulizer/Tubing/Mouthpiece - as directed dx: J45.909 every 4 hours as needed for 90 day(s) August, Active Lactulose 10 GM/15ML 10 ml Orally four a day for 30 day(s) Feb, Active May have flakita wafers flating flanges ICD: v55.3 ( 02116 2 1/2 change as needed ([place]) Active Syringe 2-3 ML 3 ML dx: r11.0 intramuscularly tid prn for 30 Day s Feb, Active PROCEDURES No Information RESULTS No Results REASON FOR VISIT PT eval MEDICAL (GENERAL) HISTORY Type Description Date Medical [...] small bowel obstructi on 09/2020 Hospitalization History [facility] - Ventral Hernia 11/2020 Goals Section No Information Health Concerns No Information MEDICAL EQUIPMENT No Information MENTAL STATUS No Information FUNCTIONAL STATUS No Information ASSESSMENTS No Information PLAN OF TREATMENT Medication Medication Name Sig Start Date Stop Date Senna 8.6 MG 1-2 tablets at bedtime as needed Orally qhs prn for 30 Days Next Appt Details Provider Name:Tutu Sanchez, 2 10:30:00 AM, [address] [facility], , [place], [address], Provider Name:Mathew Worthington, 2021-05-17 11:00:00 AM, [address], , [place], [address], Insurance Providers Payer Name Payer Address Payer Phone Insured Name Patient Relati onship to Insured Coverage Start Date Coverage End Date [facility] [address] [facility] [place] [id number] RUBA GRAFF,GLENN COOPER self
--- OUTSIDE RECORDS SUMMARY | 2021-03-23 18:52 | CCD ---
Author Author [facility] Organization [facility] Address Unknown Phone Unavailable Care Team Providers Care Telegraph Office Route Aide Name Role Phone Tutu Sanchez Unavailable PROBLEMS Type Condition ICD9-CM Code RPD19-VB Code Onset Dates Condition S tatus W/U Status Risk SNOMED Code Notes Problem Complicated headache syndromes G44.59 Active confir med 967893940 Problem Chronic maxillary sinusitis J32.0 Active confirmed 31228999 Problem Unspecified asthma J45.909 Active confirmed 450808454 Problem Chronic pain associated with significant psychos ocial dysfunction G89.4 Active confirmed 521305255 Problem Chronic nausea R11.0 Active confirmed 22829 7007 Problem Left lower quadrant pain R10.32 Active confirmed 754800064 Problem History of abdominal surgery Z98.890 Active confirm ed 888455246 Problem 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 Active confirm ed 31366977 Problem Internal hemorrhoids without mention of complication K64.8 Active confirmed 44776675 Problem Mixed hyperlipidemia E78.2 Active confirmed 142382206 Problem Viral warts, unspecified B07.9 Active confirmed 69761569 Problem Breast calcification seen on mammogram R92.1 A ctive confirmed 982087613 Problem Pelvic muscle wasting N81.84 Active confirmed 68295970 Problem Hypomagnesemia E83.42 Active confirmed 83789 5004 Problem Anemia, chronic disease D63.8 Active confirmed 578520033 Problem Dysfunction of eustachian tube, bilateral H69.83 Active confirmed 57208468 Problem Esophageal reflux K21.9 Active confirmed 23 3242208 Problem DM w/o complication type II E11.9 Active confirmed 040694780 Problem Low back pain M54.5 Active confirmed 139871 009 Problem DM w/o complication type II, uncontrolled E11.65 Active confirmed 61907320 Problem Occipital neuralgia M54.81 Active confirmed 43968426 Problem assisted (current) use of insulin Z79.4 Activ e confirmed 162149066 Problem Chronic prescription opiate use Z79.899 Active confirmed 250945231 Problem Granulomatous disorder of the skin and s ubcutaneous tissue, unspecified L92.9 Active confirmed 158819744 Problem Multiple drug allergies Z88.9 Active confirmed 616196421 Problem Port catheter in place Z95.828 Active confirmed 011950014 Problem Myalgia M79.1 Active confirmed 86418655 Problem Chronic kidney disease, stage III (moderate) N18.3 Active confirmed 413252640 Problem Type 2 diabetes mellitus with stage 3 chronic kidney disea se E11.22 Active confirmed 67348965 Problem Fatty liver K76.0 Active confirmed 21134855 7 Problem Ileostomy status Z93.2 Active confirmed 302 539320 Problem Encounter for care related to vascular access port Z45.2 Active confirmed 880876537 Problem Complex regional pain syndrome I of left lower limb G90.522 Active confirmed 173658217 Problem Type 2 diabetes mellitus without complications E11 .9 Active confirmed 062692079 Problem supervisor intermediates current use of insulin Z79.4 Active conf irmed 511886719 Problem Hypoglycemia E16.2 Active confirmed 2371038 03 Problem Myalgia, other site M79.18 Active confirmed 50284134 Problem Allergic rhinitis, unspecified seasonality, unspecifie d trigger J30.9 Active confirmed 41078083 Problem Constipation, unspecified constipation type K59.00 Active confirmed 94620589 Problem Pseudogout M11.20 Active confirmed 461480034 Problem Flexural eczema L20.82 Active confirmed 5709 2006 Problem Cervicalgia M54.2 Active confirmed 72472181 Problem Other chronic pain G89.29 Active confirmed 8 5148407 Problem Grief F43.20 Active confirmed 435482563 Problem Type 2 diabetes mellitus with hyperglycemia E11.65 Active confirmed 11430189 Problem Disorders of magnesium metabolism, unspecified E83 .40 Active confirmed 25976400 Problem Spinal cord stimulator status Z96.89 Active confirm ed 383848971 Problem Rosacea L71.9 Active confirmed 053444684 Problem Vaginal atrophy N95.2 Active confirmed 2971 56136 Problem Incisional hernia with obstruction but no gangrene K43.0 Active confirmed 277296830 Problem Falls frequently R29.6 Active confirmed 279 233121 ALLERGIES Allergen (clinical drug ingredient) Drug/Non Drug Allergy do cumented on EMR Reaction Allergy Type Onset Date Status morphine Morphine Sulfate(ND Code:[address]-86) severe h/a with big dose Drug Allergy Active codeine Codeine Sulfate(NDC Code:[address]-43) out of b vito experience Drug Allergy Active ketorolac Ketorolac Tromethamine(NDC Code:[address]-67) vomitin g Drug Allergy Active Gastrografin(NDC Code:[address]-30) Onl y 1 bottle per test day (can not tolerate any more than 1 bottle) Drug Allergy Active Penicillin (For Allergies Use Only) Hives Drug Allerg y Active tiagabine Gabitril(NDC Code:[address]-27) nervous Drug Allergy Active Baclofen affected nervous syt Drug Allergy Ac tive Vicodin Confusion Drug Allergy Active Phenothiazines Phenothiazines nervous system Drug Allergy Active red food dye rash Non Drug Allergy Active promethazine Promethazine HCl(NDC Code:[address]-99) out of body experience Drug Allergy Active Readi-Cat Hives Drug Allergy Active lorazepam Ativan(NDC Code:[address]-60) hallucinations Drug Allergy Active tizanidine Tizanidine HCl(NDC Code:[address]-76) Hives Drug All ergy Active droperidol Droperidol(NDC Code:[address]-12) out of body Drug Allerg y Active Latex Latex difficulty Drug Allergy Active iodine(NDC Code:17068-13515) nerves, tight muscles Drug Al lergy Active pregabalin Lyrica shakes, everything is black Drug Allergy Active nitrofurantoin, macrocrystals / nitrofurantoin, monohy drate Macrobid(NDC Code:[address]-53) Hives, blurred vision Drug Allergy Active azithromycin Azithromycin(NDC Code:[address]-19) hives Drug All ergy Active Sulfasalazine Sulfa Antibiotics Hives Drug Allergy Ac tive Oxycodone vomiting,hives Drug Allergy Active meperidine Meperidine HCl(NDC Code:[address]-34) out of den[place] dy experience Drug Allergy Active quinolones- cipro,tequin Hives Non Drug Allergy Active lidoderm (licocanine) heart races Non Drug Allergy Active gabapentin Gabapentin([facility] Code:[address]-46) nervous syste m,shakey Drug Allergy Active fentanyl Fentanyl(ND Code:[address]-28) nervous Drug Allergy Active tramadol Tramadol(ND Code:[address]-56) shakes Drug Allergy Active albuterol Albuterol Sulfate([facility] Code:[address]-43) cough Drug Allergy Active aspirin Aspirin(ND Code:[address]-55) Hives Drug Allergy Active ENCOUNTERS from 1960 to 2021-03-02 Encounter Location Date Provider Diagnosis [address] [phone] [place] [address] Feb, Tutu Sanchez IMMUNIZATIONS Vaccine Route Administration [...] Language: Question Answer Notes Languages spoken: Marshallese Confucianism: Question Answer Notes Confucianism 15 Presbyterian Sexual Hx: Question Answer Notes [...] dx:Z93.2 for 90 days Active Nystatin Powder 616152 UNIT/GM apply Externally four t imes a [...] 4 HOURS NEEDED for 30 Active Nystatin 326626 UNIT/GM APPLY FOUR TIMES A DAY UNDER [...] NEEDED for 14 Active OneTouch Delica Plus [id number] - USE 1 LANCET FOUR TIMES A D AY NEEDED for 50 Active Mometasone Furoate 50 MCG/ACT SPRAY TWO SPRAYS IN EACH NOSTR [place] EVERY DAY for 30 Active Amitriptyline HCl 50 MG TAKE ONE TABLET BY MOUTH NADINE MORNING AND 3 TABLETS BY MOUTH AT BEDTIME for 30 Active Saline Nasal [place] 0.65 % 1-2 sprays right nostril Sudeep ally 2-3 times a day for 7 day(s) Sep, Active BD Pen Needle Short U/F 31G X 8 MM USE 1 NEEDLE UNDER THE SKIN ONCE A DAY for 30 Active Test Strips - - Dx: E11.65 four times daily as needed for 30 Days Medicaid #: [id number] Jun, Active Sucralfate 1 GM TAKE ONE [...] Dx: E11/65 for 30 days Medicaid #: [id number] Jun, Active Medipore H Surgical 4"x10yd - as directed May, Active Pen [place] 5/16" 31G X 8 MM as directed subcutaneousl y BID dx: E11.65 for 90 day(s) Jul, Active August Flakita Bags (19319) ICD:v55.3 change as needed ([place] nash) for 30 day(s) Active Nebulizer/Tubing/Mouthpiece - as directed dx: J45.909 every 4 hours as needed for 90 day(s) August, Active Lactulose 10 GM/15ML 10 ml Orally four a day for 30 day(s) Feb, Active May have flakita wafers flating flanges ICD: v55.3 ( 87247 2 1/2 change as needed ([place]) Active Syringe 2-3 ML 3 ML dx: r11.0 intramuscularly tid prn for 30 Day s Feb, Active PROCEDURES No Information RESULTS No Results REASON FOR VISIT Zofran 4 MG/2ML Solution MEDICAL (GENERAL) HISTORY Type Description Date [...] Days Next Appt Details Provider Name:Tutu Sanchez, 2021-03-0 2 10:30:00 AM, [address] [facility], , [place], [address], Provider Name:Mathew Worthington, 2021-05-17 11:00:00 AM, [address], , [place], [address], Insurance Providers Payer Name Payer Address Payer Phone Insured Name Patient Relati onship to Insured Coverage Start Date Coverage End Date [facility] [address] [facility] [id number] RUBA GRAFF,GLENN COOPER self
--- OUTSIDE RECORDS SUMMARY | 2021-03-23 18:53 | CCD ---
Author Author [facility] Organization [facility] Address Unknown Phone Unavailable Care Team Providers Care Blind Hanger Name Role Phone Kay Sparks Unavailable PROBLEMS Type Condition ICD9-CM Code KZO53-DF Code Onset Dates Condition S tatus W/U Status Risk SNOMED Code Notes Problem Complicated headache syndromes G44.59 Active confir med 425209376 Problem Chronic maxillary sinusitis J32.0 Active confirmed 89680193 Problem Unspecified asthma J45.909 Active confirmed 663688947 Problem Chronic pain associated with significant psychos ocial dysfunction G89.4 Active confirmed 281203692 Problem Chronic nausea R11.0 Active confirmed 20627 7007 Problem Left lower quadrant pain R10.32 Active confirmed 399333707 Problem History of abdominal surgery Z98.890 Active confirm ed 036677157 Problem 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 Active confirm ed 96658452 Problem Internal hemorrhoids without mention of complication K64.8 Active confirmed 23604215 Problem Mixed hyperlipidemia E78.2 Active confirmed 030623982 Problem Viral warts, unspecified B07.9 Active confirmed 67550963 Problem Breast calcification seen on mammogram R92.1 A ctive confirmed 076302534 Problem Pelvic muscle wasting N81.84 Active confirmed 25079287 Problem Hypomagnesemia E83.42 Active confirmed 73418 5004 Problem Anemia, chronic disease D63.8 Active confirmed 683610629 Problem Dysfunction of eustachian tube, bilateral H69.83 Active confirmed 91094049 Problem Esophageal reflux K21.9 Active confirmed 23 9469605 Problem DM w/o complication type II E11.9 Active confirmed 411939137 Problem Low back pain M54.5 Active confirmed 008778 009 Problem DM w/o complication type II, uncontrolled E11.65 Active confirmed 45706040 Problem Occipital neuralgia M54.81 Active confirmed 86311244 Problem half-way (current) use of insulin Z79.4 Activ e confirmed 184433330 Problem Chronic prescription opiate use Z79.899 Active confirmed 385417358 Problem Granulomatous disorder of the skin and s ubcutaneous tissue, unspecified L92.9 Active confirmed 608773237 Problem Multiple drug allergies Z88.9 Active confirmed 153916226 Problem Port catheter in place Z95.828 Active confirmed 470616691 Problem Myalgia M79.1 Active confirmed 55609057 Problem Chronic kidney disease, stage III (moderate) N18.3 Active confirmed 973003071 Problem Type 2 diabetes mellitus with stage 3 chronic kidney disea se E11.22 Active confirmed 92474913 Problem Fatty liver K76.0 Active confirmed 35850864 7 Problem Ileostomy status Z93.2 Active confirmed 302 205546 Problem Encounter for care related to vascular access port Z45.2 Active confirmed 134348994 Problem Complex regional pain syndrome I of left lower limb G90.522 Active confirmed 349065214 Problem Type 2 diabetes mellitus without complications E11 .9 Active confirmed 507317683 Problem half-way current use of insulin Z79.4 Active conf irmed 391513134 Problem Hypoglycemia E16.2 Active confirmed 2018415 03 Problem Myalgia, other site M79.18 Active confirmed 27859571 Problem Allergic rhinitis, unspecified seasonality, unspecifie d trigger J30.9 Active confirmed 55133517 Problem Constipation, unspecified constipation type K59.00 Active confirmed 06103444 Problem Pseudogout M11.20 Active confirmed 002695088 Problem Flexural eczema L20.82 Active confirmed 5709 2005 Problem Cervicalgia M54.2 Active confirmed 23987489 Problem Other chronic pain G89.29 Active confirmed 8 5502344 Problem Grief F43.20 Active confirmed 364594397 Problem Type 2 diabetes mellitus with hyperglycemia E11.65 Active confirmed 31272434 Problem Disorders of magnesium metabolism, unspecified E83 .40 Active confirmed 49896748 Problem Spinal cord stimulator status Z96.89 Active confirm ed 121612627 Problem Rosacea L71.9 Active confirmed 463194992 Problem Vaginal atrophy N95.2 Active confirmed 2971 93321 Problem Incisional hernia with obstruction but no gangrene K43.0 Active confirmed 993295961 Problem Falls frequently R29.6 Active confirmed 279 153083 ALLERGIES Allergen (clinical drug ingredient) Drug/Non Drug Allergy do cumented on EMR Reaction Allergy Type Onset Date Status morphine Morphine Sulfate(ND Code:[address]-54) severe h/a with big dose Drug Allergy Active codeine Codeine Sulfate(NDC Code:[address]-40) out of b vito experience Drug Allergy Active ketorolac Ketorolac Tromethamine(NDC Code:[address]-67) vomitin g Drug Allergy Active Gastrografin(NDC Code:[address]-17) Onl y 1 bottle per test day (can not tolerate any more than 1 bottle) Drug Allergy Active Penicillin (For Allergies Use Only) Hives Drug Allerg y Active tiagabine Gabitril(NDC Code:[address]-41) nervous Drug Allergy Active Baclofen affected nervous syt Drug Allergy Ac tive Vicodin Confusion Drug Allergy Active Phenothiazines Phenothiazines nervous system Drug Allergy Active red food dye rash Non Drug Allergy Active promethazine Promethazine HCl(NDC Code:[address]-57) out of body experience Drug Allergy Active Readi-Cat Hives Drug Allergy Active lorazepam Ativan(NDC Code:[address]-15) hallucinations Drug Allergy Active tizanidine Tizanidine HCl(NDC Code:[address]-85) Hives Drug All ergy Active droperidol Droperidol(NDC Code:[address]-18) out of body Drug Allerg y Active Latex Latex difficulty Drug Allergy Active iodine(NDC Code:21744-36558) nerves, tight muscles Drug Al lergy Active pregabalin Lyrica shakes, everything is black Drug Allergy Active nitrofurantoin, macrocrystals / nitrofurantoin, monohy drate Macrobid(NDC Code:[address]-30) Hives, blurred vision Drug Allergy Active azithromycin Azithromycin(NDC Code:[address]-16) hives Drug All ergy Active Sulfasalazine Sulfa Antibiotics Hives Drug Allergy Ac tive Oxycodone vomiting,hives Drug Allergy Active meperidine Meperidine HCl(NDC Code:[address]-22) out of dena dy experience Drug Allergy Active quinolones- cipro,tequin Hives Non Drug Allergy Active lidoderm (licocanine) heart races Non Drug Allergy Active gabapentin Gabapentin([facility] Code:[address]-46) nervous syste m,shakey Drug Allergy Active fentanyl Fentanyl(ND Code:[address]-53) nervous Drug Allergy Active tramadol Tramadol(NDC Code:[address]-79) shakes Drug Allergy Active albuterol Albuterol Sulfate(ND Code:[address]-74) cough Drug Allergy Active aspirin Aspirin(ND Code:[address]-83) Hives Drug Allergy Active ENCOUNTERS from 1960 to 2021-02-07 Encounter Location Date Provider Diagnosis [address] [phone] [place] [address] Jan, Kay Sparks Chronic nausea R11.0 IMMUNIZATIONS Vaccine Route Administration Date Status Toradol 60mg/2mL Ketorolac IM Intramuscular Jan 31, 2017 Admi nistered Toradol 60mg/2mL Ketorolac IM Intramuscular Feb 04, 2017 Admi nistered Toradol 60mg/2mL Ketorolac IM Intramuscular Feb 05, 2017 Admi nistered Toradol 60mg/2mL Ketorolac IM Intramuscular Feb 06, 2017 Admi nistered Toradol 60mg/2mL Ketorolac IM Intramuscular Jan 20, 2017 Admi nistered Toradol 60mg/2mL Ketorolac IM Intramuscular Jan 21, 2017 Admi nistered Toradol 60mg/2mL Ketorolac IM Intramuscular Jan 22, 2017 Admi nistered Toradol 60mg/2mL Ketorolac IM Intramuscular Jan 23, 2017 Admi nistered Influenza 6mo & up Fluzone IM Intramuscular Jan 12, 2010 Admi nistered TD PED 0.5mL Tetanus Unknown October 12, [...] IM Intramuscular Mar 15, 2011 Admi nistered Toradol 60mg/2mL Ketorolac IM Intramuscular Feb 18, 2017 Admi nistered Toradol 60mg/2mL Ketorolac IM Intramuscular Feb 19, 2017 Admi nistered Toradol 60mg/2mL Ketorolac IM Intramuscular Feb 20, 2017 Admi nistered Hepatitis A & B 1mL Twinrix IM Intramuscular October 02, 2011 Adm inistered Rocephin 1gm Ceftriaxone IM Intramuscular May 21, 2017 Admini stered Hepatitis A & B 1mL Twinrix IM Intramuscular Feb 11, 2012 Adm inistered Toradol 60mg/2mL Ketorolac IM Intramuscular July 14, 2017 Admi nistered Hepatitis A & B 1mL Twinrix IM Intramuscular Apr 15, 2012 Adm inistered Toradol 60mg/2mL Ketorolac IM Intramuscular July 21, 2017 Admi nistered Toradol 60mg/2mL Ketorolac IM Intramuscular Apr 22, 2016 Admi nistered Toradol 60mg/2mL Ketorolac IM Intramuscular Feb 21, 2017 Admi nistered TDAP Unknown September 13, 2009 Administered Toradol 60mg/2mL Ketorolac IM Intramuscular Feb 24, 2017 Admi nistered Pneumococcal Adult 0.5mL Pneumovax 23 IM Intramuscular Feb 22 013 Administered Rocephin 1gm Ceftriaxone IM Intramuscular May 19, 2017 Admini stered Pneumococcal Adult 0.5mL Pneumovax 23 Unknown Jan 26 16 Administered Rocephin 1gm Ceftriaxone IM Intramuscular May 20, 2017 Admini stered Toradol 60mg/2mL Ketorolac IM Intramuscular Apr 26, 2016 Admi nistered Toradol 60mg/2mL Ketorolac IM Intramuscular May 01, 2016 Admi nistered Toradol 60mg/2mL Ketorolac IM Intramuscular May 03, 2016 Admi nistered Toradol 60mg/2mL Ketorolac IM Intramuscular July 22, 2017 Admi nistered Toradol 60mg/2mL Ketorolac IM Intramuscular July 23, 2017 Admi nistered Toradol 60mg/2mL Ketorolac IM Intramuscular August 27, 2017 Admi nistered Toradol 60mg/2mL Ketorolac IM Intramuscular September 03, 2017 Admi nistered Toradol 60mg/2mL Ketorolac IM Intramuscular Dec 09, 2016 Admi nistered Toradol 60mg/2mL Ketorolac IM Intramuscular September 22, 2017 Admi nistered Toradol 60mg/2mL Ketorolac IM Intramuscular Dec 12, 2016 Admi nistered Toradol 60mg/2mL Ketorolac IM Intramuscular September 23, 2017 Admi nistered Toradol 60mg/2mL Ketorolac IM Intramuscular Dec 23, 2016 Admi nistered Toradol 60mg/2mL Ketorolac IM Intramuscular Dec 30, 2016 Admi nistered Toradol 60mg/2mL Ketorolac IM Intramuscular May 07, 2016 Admi nistered Toradol 60mg/2mL Ketorolac IM Intramuscular September 04, 2017 Admi nistered Toradol 60mg/2mL Ketorolac IM Intramuscular May 28, 2016 Admi nistered Toradol 60mg/2mL Ketorolac IM Intramuscular September 05, 2017 Admi nistered Toradol 60mg/2mL Ketorolac IM Intramuscular July 18, 2016 Admi nistered Toradol 60mg/2mL Ketorolac IM Intramuscular September 10, 2017 Admi nistered Toradol 60mg/2mL Ketorolac IM Intramuscular Dec 27, 2016 Admi nistered Toradol 60mg/2mL Ketorolac IM Intramuscular September 09, 2017 Admi nistered Toradol 60mg/2mL Ketorolac IM Intramuscular Jan 07, 2017 Admi nistered Toradol 60mg/2mL Ketorolac IM Intramuscular Jan 10, 2017 Admi nistered Toradol 60mg/2mL Ketorolac IM Intramuscular September 25, 2017 Admi nistered Toradol 60mg/2mL Ketorolac IM Intramuscular September 26, 2017 Admi nistered Toradol 60mg/2mL Ketorolac IM Intramuscular September 25, 2018 Admi nistered Toradol 60mg/2mL Ketorolac IM Intramuscular Jan 09, 2017 Admi nistered Toradol 60mg/2mL Ketorolac IM Intramuscular October 05, 2018 Admi nistered Toradol 60mg/2mL Ketorolac IM Intramuscular 2017 Admi nistered Rocephin 1gm Ceftriaxone IM Intramuscular Dec 19, 2015 Admini stered Rocephin 1gm Ceftriaxone IM Intramuscular May 22, 2017 Admini stered Rocephin 1gm Ceftriaxone IM Intramuscular Dec 20, 2015 Admini stered Rocephin 1gm Ceftriaxone IM Intramuscular Dec 21, 2015 Admini stered Rocephin 1gm Ceftriaxone IM Intramuscular Dec 22, 2015 Admini stered Toradol 60mg/2mL Ketorolac IM Intramuscular Jan 08, 2017 Admi nistered Toradol 60mg/2mL Ketorolac IM Intramuscular October 01, 2018 Admi nistered Toradol 60mg/2mL Ketorolac IM Intramuscular Jan 13, 2017 Admi nistered Toradol 60mg/2mL Ketorolac IM Intramuscular October 06, 2018 Admi nistered Pneumococcal Adult 0.5mL Pneumovax 23 IM Intramuscular September 25, 2018 Administered Toradol 60mg/2mL Ketorolac IM Intramuscular July 30, 2019 Admi nistered Rocephin 1gm Ceftriaxone IM Intramuscular Dec 15, 2015 Admini stered Rocephin 1gm Ceftriaxone IM Intramuscular May 23, 2017 Admini stered Rocephin 1gm Ceftriaxone IM Intramuscular Apr 26, 2016 Admini stered Toradol 60mg/2mL Ketorolac IM Intramuscular Feb 03, 2017 Admi nistered Toradol 60mg/2mL Ketorolac IM Intramuscular Jan 17, 2017 Admi nistered Influenza 18 yrs & older Flublok IM Intramuscular Jan 23, 2018 Administered Influenza 18 yrs & older Flublok IM Intramuscular Jan 30, 2021 Administered SOCIAL HISTORY Tobacco Use: Social History Observation Description Date Details (start date - stop date) Never Smoker Sex Assigned At : Social History Observation Description Sex Assigned At Unknown Education: Question Answer Notes Level of Education: Grade School 8th grade Audit Question Answer Notes Total Score: 0 Interpretation: Alcohol Education Language: Question Answer Notes Languages spoken: Faroese Episcopal: Question Answer Notes [employer] 15 [employer] [...] Notes Start Da te End Date Status August [employer] (24439) ICD:v55.3 change as needed (Payton cao) for 30 day(s) Active Amitriptyline HCl 50 MG as directed Orally 1 tab in am and 3 tabs at bedtime for 30 Days Active Alcohol Prep Pad 70 % as directed E11.9 test blood sugar QID PRN for 50 Active Senna 8.6 MG 2 tablets at bedtime as needed Orally Once a day x 10 da ys Active Nystatin 587716 UNIT/GM 1 application Externally Twice a day for 15 Active Metoclopramide HCl 10 MG 1 tablet before meals and be dtime Orally three times daily before meals for 30 days Jun, A ctive DuoDERM CGF Dressing - 1 packet Externally Daily for 14 day(s) Oct, Active Albuterol Sulfate HFA 108 (90 Base) MCG/ACT INHALE TWO PUFFS BY MOUTH EVERY 4 HOURS NEEDED for 30 Active Mupirocin 2 % 1 application Externally Three times a day for 14 Active Sodium Chloride 0.9 % one application inside the R nostril every 2 hrs prn for 7 day(s) Mar, Active [facility] Magnesium Oxide 250 MG 1 tablet with food Orally Once a day for 5 days Jan, Active Nystatin Powder 703847 UNIT/GM apply Externally four t imes a day under the left breast for 14 day(s) Oct, Active Ammonium Lactate 12 % 1 application Externally Twice a day to feet fo r 30 Active Medipore H Surgical 4"x10yd - as directed May, Active Saline Nasal [place] 0.65 % 1-2 sprays right nostril Sudeep ally 2-3 times a day for 7 day(s) Sep, Active Zofran 4 MG/2ML 4 mg Injection TID at least 6h apart for 30 Days Nov, Active Syringe 2-3 ML 3 ML dx: r11.0 intramuscularly tid prn for 30 Day s Feb, Active Cephalexin 500 MG 1 capsule Orally Four times a day Not-Taking May have jerome wafers flating flanges ICD: v55.3 ( 11386 2 1/2 change as needed (Tatianna) Active Victoza 18 MG/3ML 1.8mg Subcutaneous Daily Mar, Active Nystatin 838050 UNIT/GM APPLY TO AFFECTED AREA(S) AR OUND STOMA 2 TIMES A DAY DIRECTED UNTIL HEALED Externally Twice a day for 14 days Not-Taking Hydrocodone-Chlorpheniramine 5ml orally q12h prn for 11 days Jan, Not-Taking Glucometer testing 4 times a day and as needed Dx: E1165 for 30 days Medicaid #: [id number] Jun, Active Cephalexin 500 MG 1 capsule Orally every 6 hrs for 7 days August, Active Mupirocin 2 % apply a small amount to righ t nostril with q-tip Externally twice a day for 7 days Sep, Active Sucralfate 1 GM TAKE ONE TABLET BY MOUTH TWICE A DAY WITH MEALS for 3 0 Active BD Pen Needle Short U/F 31G X 8 MM USE 1 NEEDLE UNDER THE SKIN ONCE A DAY for 30 Active Pedialyte bottle 330 ml Orally three times daily for 30 days Not-Taking Benzonatate 100 MG 1 capsule as needed Orally Three times a day for 10 days Dec, Not-Taking HYDROmorphone HCl 2 MG 2 tablet as needed Orally ev isaura 6 hrs MDD:4 for 14 day(s) Nov, Not-Taking Cavilon spray Apply a uniform coating of f ilm over the ostomy region topically Daily and as needed Dx: Z93.2 for 28 day(s) Oct, Active Ciclopirox 8 % 1 application to the l 5th f ingernail Externally Once a day, clean off with an alcohol prep pad once a week for 90 day(s) Mar, Not-Taking Ipratropium-Albuterol 0.5-2.5 (3) MG/3ML 3 ml Inhalati on every 6 hrs PRN for 30 days Dec, Active HYDROmorphone HCl 2 MG 2 tablets as needed Orally every 6 hr s for 7 days MDD of 8 mg please. Nov, Not-Taking Nystatin 324652 UNIT/GM 1 application Externally Four times a da y for 30 days Oct, Active Simethicone 80 MG 2 tablets after meals and at bedtime as needed Orally three times a day as needed for abdominal pain and distention for 30 Active Aquaphor - apply to the perineal area a s needed Externally qid and as needed for 14 day(s) Jul, Active HYDROmorphone HCl 2 MG 2 tablet as needed Orally every 6 hrs for 7 days Nov, Not-Taking Triamcinolone Acetonide 0.1 % APPLY SMALL AMOUNT AFFEC YURI AREA(S) TWO TIMES A DAY NEEDED for 14 Active Estradiol 0.1 MG/GM _insert ONE GRAM VAGINALLY EVERY DAY for 30 Active Ondansetron HCl 4 MG/2ML INJECT 1 VIAL [4MG] TWO TIME S A DAY AT LEAST 8 HOURS APART DIRECTED for 30 Active Hospital bed use daily as directed dx: K9 1.2, G89.4, G90.522, N81.84 for 99 days May, Active Baby Wipes 1 as directed topically prn dx:569.62 for 7 day(s) Active Mometasone Furoate 50 MCG/ACT SPRAY TWO SPRAYS IN EACH NOSTR [place] EVERY DAY for 30 Active Lactulose 20 GM/30ML 10 ml Orally four times a day for 30 Days Active Tessalon Perles 100 MG 1 capsule as needed Orally T hree times a day for 10 day(s) Dec, Not-Taking Mesalamine 1000 MG 1 suppository at bedtime Rectal Once a day fo r 30 day(s) Mar, Not-Taking Pedialyte - 360ml Orally TID for 30 Days Jul, Not-Taking Test Strips - - Dx: E11.65 four times daily as needed for 30 Days Medicaid #: [id number] Jun, Active Neosporin Pain Relieving [place] 1 topical twice for 7 days Oct, Not-Taking Levemir Flex Touch 100 UNIT/ML 50 units Subcutaneous in the morning for 30 Active OneTouch Delica Plus [id number] - USE 1 LANCET FOUR TIMES A D AY NEEDED for 50 Active Dicyclomine HCl 10 MG TAKE ONE CAPSULE BY MOUTH FOUR TIMES A DAY for 30 Active Neosporin LT apply topically twice a day for 7 days Oct Not-Taking Pen [place] 16" 31G X 8 MM as directed subcutaneousl y BID dx: E11.65 for 90 day(s) Jul, Active Nebulizer/Tubing/Mouthpiece - as directed dx: J45.909 every 4 hours as needed for 90 day(s) August, Active Mupirocin 2 % 1 application to the left in dex finger Externally Three times a day for 10 day(s) Oct, Active Medipore H Surgical 4"x10yd - as directed externally prn dx: z93.2 for 30 Days Oct, Active Nebulizer Compressor 1 inh dx: J45.909 every 4 hours as needed f or 90 day(s) August, Active PROCEDURES No Information RESULTS No Results REASON FOR VISIT Al[facility]am[facility] MEDICAL (GENERAL) HISTORY Type Description Date Medical [...] small bowel obstructi on 09/2020 Hospitalization History [facility] - [facility] Hernia 11/2020 Goals Section No Information Health Concerns No Information MEDICAL EQUIPMENT No Information MENTAL STATUS No Information FUNCTIONAL STATUS No Information ASSESSMENTS Encounter Date Diagnosis Assessment Notes Treatment Notes Treatm ent Clinical Notes Jan, Chronic nausea (ICD-10 - R11.0) PLAN OF TREATMENT Medication Medication Name Sig Start Date Stop Date Zofran 4 MG/2ML 4 mg Injection TID at least 6h apart for 30 Days Nov, [facility] Magnesium Oxide 250 MG 1 tablet with food Orally Once a day for 5 days Jan, Next Appt Details Provider Name:Tutu Sanchez, 2 10:30:00 AM, [address] [facility], , [place], [address], Provider Name:Mathew Worthington, 2021-05-17 11:00:00 AM, [address] [facility] [address] [facility], , [place], [address], Insurance Providers Payer Name Payer Address Payer Phone Insured Name Patient Relati onship to Insured Coverage Start Date Coverage End Date [facility] [address] [facility] [id number] GLENN JACOBSON
--- OUTSIDE RECORDS SUMMARY | 2021-03-23 18:53 | CCD ---
Author Author [facility] Organization [facility] Address Unknown Phone Unavailable Care Team Providers Care Records Technician Name Role Phone Kay Sparks Unavailable PROBLEMS Type Condition ICD9-CM Code [id number] Code Onset Dates Condition S tatus W/U Status Risk SNOMED Code Notes Problem Complicated headache syndromes G44.59 Active confir med 248578056 Problem Chronic maxillary sinusitis J32.0 Active confirmed 73459982 Problem Unspecified asthma J45.909 Active confirmed 656856899 Problem Chronic pain associated with significant psychos ocial dysfunction G89.4 Active confirmed 011265490 Problem Chronic nausea R11.0 Active confirmed 25014 7007 Problem Left lower quadrant pain R10.32 Active confirmed 163852939 Problem History of abdominal surgery Z98.890 Active confirm ed 849934971 Problem 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 Active confirm ed 97641747 Problem Internal hemorrhoids without mention of complication K64.8 Active confirmed 04609552 Problem Mixed hyperlipidemia E78.2 Active confirmed 651976135 Problem Viral warts, unspecified B07.9 Active confirmed 17183372 Problem Breast calcification seen on mammogram R92.1 A ctive confirmed 876054895 Problem Pelvic muscle wasting N81.84 Active confirmed 76494452 Problem Hypomagnesemia E83.42 Active confirmed 03851 5004 Problem Anemia, chronic disease D63.8 Active confirmed 390192027 Problem Dysfunction of eustachian tube, bilateral H69.83 Active confirmed 72417696 Problem Esophageal reflux K21.9 Active confirmed 23 5400567 Problem DM w/o complication type II E11.9 Active confirmed 578452813 Problem Low back pain M54.5 Active confirmed 218453 009 Problem DM w/o complication type II, uncontrolled E11.65 Active confirmed 91044955 Problem Occipital neuralgia M54.81 Active confirmed 07916472 Problem jail (current) use of insulin Z79.4 Activ e confirmed 381977617 Problem Chronic prescription opiate use Z79.899 Active confirmed 102560881 Problem Granulomatous disorder of the skin and s ubcutaneous tissue, unspecified L92.9 Active confirmed 702232865 Problem Multiple drug allergies Z88.9 Active confirmed 697051553 Problem Port catheter in place Z95.828 Active confirmed 887699651 Problem Myalgia M79.1 Active confirmed 60681930 Problem Chronic kidney disease, stage III (moderate) N18.3 Active confirmed 503195943 Problem Type 2 diabetes mellitus with stage 3 chronic kidney disea se E11.22 Active confirmed 83200901 Problem Fatty liver K76.0 Active confirmed 52711088 7 Problem Ileostomy status Z93.2 Active confirmed 302 399159 Problem Encounter for care related to vascular access port Z45.2 Active confirmed 773133706 Problem Complex regional pain syndrome I of left lower limb G90.522 Active confirmed 832522015 Problem Type 2 diabetes mellitus without complications E11 .9 Active confirmed 810496183 Problem jail current use of insulin Z79.4 Active conf irmed 470072432 Problem Hypoglycemia E16.2 Active confirmed 0121553 03 Problem Myalgia, other site M79.18 Active confirmed 41242075 Problem Allergic rhinitis, unspecified seasonality, unspecifie d trigger J30.9 Active confirmed 93279183 Problem Constipation, unspecified constipation type K59.00 Active confirmed 28957775 Problem Pseudogout M11.20 Active confirmed 989306627 Problem Flexural eczema L20.82 Active confirmed 5709 2005 Problem Cervicalgia M54.2 Active confirmed 78818764 Problem Other chronic pain G89.29 Active confirmed 8 0036528 Problem Grief F43.20 Active confirmed 328411145 Problem Type 2 diabetes mellitus with hyperglycemia E11.65 Active confirmed 34244773 Problem Disorders of magnesium metabolism, unspecified E83 .40 Active confirmed 01082583 Problem Spinal cord stimulator status Z96.89 Active confirm ed 970881431 Problem Rosacea L71.9 Active confirmed 361438434 Problem Vaginal atrophy N95.2 Active confirmed 2971 41631 Problem Incisional hernia with obstruction but no gangrene K43.0 Active confirmed 694913359 Problem Falls frequently R29.6 Active confirmed 279 000786 ALLERGIES Allergen (clinical drug ingredient) Drug/Non Drug Allergy do cumented on EMR Reaction Allergy Type Onset Date Status morphine Morphine Sulfate(ND Code:[address]-88) severe h/a with big dose Drug Allergy Active codeine Codeine Sulfate(NDC Code:[address]-07) out of b vito experience Drug Allergy Active ketorolac Ketorolac Tromethamine(NDC Code:[address]-93) vomitin g Drug Allergy Active Gastrografin(NDC Code:[address]-00) Onl y 1 bottle per test day (can not tolerate any more than 1 bottle) Drug Allergy Active Penicillin (For Allergies Use Only) Hives Drug Allerg y Active tiagabine Gabitril(NDC Code:[address]-72) nervous Drug Allergy Active Baclofen affected nervous syt Drug Allergy Ac tive Vicodin Confusion Drug Allergy Active Phenothiazines Phenothiazines nervous system Drug Allergy Active red food dye rash Non Drug Allergy Active promethazine Promethazine HCl(NDC Code:[address]-41) out of body experience Drug Allergy Active Readi-Cat Hives Drug Allergy Active lorazepam Ativan(NDC Code:[address]-49) hallucinations Drug Allergy Active tizanidine Tizanidine HCl(NDC Code:[address]-56) Hives Drug All ergy Active droperidol Droperidol(NDC Code:[address]-58) out of body Drug Allerg y Active Latex Latex difficulty Drug Allergy Active iodine(NDC Code:26236-15140) nerves, tight muscles Drug Al lergy Active pregabalin Lyrica shakes, everything is black Drug Allergy Active nitrofurantoin, macrocrystals / nitrofurantoin, monohy drate Macrobid(NDC Code:[address]-00) Hives, blurred vision Drug Allergy Active azithromycin Azithromycin(NDC Code:[address]-93) hives Drug All ergy Active Sulfasalazine Sulfa Antibiotics Hives Drug Allergy Ac tive Oxycodone vomiting,hives Drug Allergy Active meperidine Meperidine HCl(NDC Code:[address]-73) out of dena dy experience Drug Allergy Active quinolones- cipro,tequin Hives Non Drug Allergy Active lidoderm (licocanine) heart races Non Drug Allergy Active gabapentin Gabapentin([facility] Code:[address]-21) nervous syste m,shakey Drug Allergy Active fentanyl Fentanyl(NDC Code:[address]-79) nervous Drug Allergy Active tramadol Tramadol(NDC Code:[address]-97) shakes Drug Allergy Active albuterol Albuterol Sulfate(NDC Code:[address]-88) cough Drug Allergy Active aspirin Aspirin(ND Code:[address]-15) Hives Drug Allergy Active ENCOUNTERS from 1960 to 2021-02-13 Encounter Location Date Provider Diagnosis [address] [phone] [place] [address] Feb, Kay Sparks Generalized abdominal pain R 10.84 IMMUNIZATIONS Vaccine Route Administration Date Status Hepatitis A & B 1mL Twinrix IM Intramuscular October 02, 2011 Adm inistered Hepatitis A & B 1mL Twinrix IM Intramuscular Feb 11, 2012 Adm inistered Hepatitis A & B 1mL Twinrix IM Intramuscular Apr 15, 2012 Adm inistered Pneumococcal Adult 0.5mL Pneumovax 23 IM Intramuscular September 25, 2018 Administered Influenza 6mo & up Fluzone IM [...] 2021 Administered Pneumococcal Adult 0.5mL Pneumovax 23 IM [...] Education Language: Question Answer Notes Languages spoken: Maori Shinto: Question Answer Notes Shinto [facility] [...] Start Da te End Date Status May [place] (23125) ICD:v55.3 change as needed ([place] cao) for 30 day(s) Active Amitriptyline HCl 50 MG as directed Orally 1 tab in am and 3 tabs at bedtime for 30 Days Active Tessalon Perles 100 MG 1 capsule as needed Orally T hree times a day for 10 day(s) Dec, Not-Taking Senna 8.6 MG 2 tablets at bedtime as needed Orally Once a day x 10 da ys Active HYDROmorphone HCl 2 MG 2 tablet as needed Orally every 6 hrs for 7 days Feb, Active HYDROmorphone HCl 2 MG 2 tablet as needed Orally ev isaura 6 hrs MDD:4 for 14 day(s) Nov, Not-Taking Zofran 4 MG/2ML 4 mg Injection TID at least 6h apart for 30 Days Nov, Active Albuterol Sulfate HFA 108 (90 Base) MCG/ACT INHALE TWO PUFFS BY MOUTH EVERY 4 HOURS NEEDED for 30 Active Ipratropium-Albuterol 0.5-2.5 (3) MG/3ML 3 ml Inhalati on every 6 hrs PRN for 30 days Dec, Active HYDROmorphone HCl 2 MG 2 tablets as needed Orally every 6 hr s for 7 days MDD of 8 mg please. Nov, Not-Taking Nystatin 610578 UNIT/GM 1 application Externally Four times a da y for 30 days Oct, Active Simethicone 80 MG 2 tablets after meals and at bedtime as needed Orally three times a day as needed for abdominal pain and distention for 30 Active Aquaphor - apply to the perineal area a s needed Externally qid and as needed for 14 day(s) Jul, Active Medipore H Surgical 4"x10yd - as directed May, Active Triamcinolone Acetonide 0.1 % APPLY SMALL AMOUNT AFFEC YURI AREA(S) TWO TIMES A DAY NEEDED for 14 Active Estradiol 0.1 MG/GM _insert ONE GRAM VAGINALLY EVERY DAY for 30 Active Syringe 2-3 ML 3 ML dx: r11.0 intramuscularly tid prn for 30 Day s Feb, Active Cephalexin 500 MG 1 capsule Orally Four times a day Not-Taking May have jerome wafers flating flanges ICD: v55.3 ( 71817 2 1/2 change as needed ([place]) Active Victoza 18 MG/3ML 1.8mg Subcutaneous Daily Mar, Active Nystatin 241275 UNIT/GM APPLY TO AFFECTED AREA(S) AR OUND STOMA 2 TIMES A DAY DIRECTED UNTIL HEALED Externally Twice a day for 14 days Not-Taking Hydrocodone-Chlorpheniramine 5ml orally q12h prn for 11 days Jan, Not-Taking Glucometer testing 4 times a day and as needed Dx: E11/65 for 30 days Medicaid #: [id number] Jun, Active Mupirocin 2 % apply a small amount to righ t nostril with q-tip Externally twice a day for 7 days Sep, Active Saline Nasal [place] 0.65 % 1-2 sprays right nostril Sudeep ally 2-3 times a day for 7 day(s) Sep, Active BD Pen Needle Short U/F 31G X 8 MM USE 1 NEEDLE UNDER THE SKIN ONCE A DAY for 30 Active Cephalexin 500 MG 1 capsule Orally every 6 hrs for 7 days August, Active Pedialyte bottle 330 ml Orally three times daily for 30 days Not-Taking Benzonatate 100 MG 1 capsule as needed Orally Three times a day for 10 days Dec, Not-Taking Alcohol Prep Pad 70 % as directed E11.9 test blood sugar QID PRN for 50 Active Cavilon spray Apply a uniform coating of f ilm over the ostomy region topically Daily and as needed Dx: Z93.2 for 28 day(s) Oct, Active Ciclopirox 8 % 1 application to the l 5th f ingernail Externally Once a day, clean off with an alcohol prep pad once a week for 90 day(s) Mar, Not-Taking Nystatin 085990 UNIT/GM 1 application Externally Twice a day for 15 Active Metoclopramide HCl 10 MG 1 tablet before meals and be dtime Orally three times daily before meals for 30 days Jun, A ctive DuoDERM CGF Dressing - 1 packet Externally Daily for 14 day(s) Oct, Active Sucralfate 1 GM TAKE ONE TABLET BY MOUTH TWICE A DAY WITH MEALS for 3 0 Active Mupirocin 2 % 1 application Externally Three times a day for 14 Active Sodium Chloride 0.9 % one application inside the R nostril every 2 hrs prn for 7 day(s) Mar, Active [facility] Magnesium Oxide 250 MG 1 tablet with food Orally Once a day for 5 days Jan, Active Nystatin Powder 801460 UNIT/GM apply Externally four t imes a day under the left breast for 14 day(s) Oct, Active Ondansetron HCl 4 MG/2ML INJECT 1 [...] times a day for 30 Days Active Ammonium Lactate 12 % 1 application Externally Twice a day to feet fo r 30 Active Mesalamine 1000 MG 1 suppository at bedtime Rectal Once a day fo r 30 day(s) Mar, Not-Taking Pedialyte - 360ml Orally TID for 30 Days Jul, Not-Taking Test Strips - - Dx: E11.65 four times daily as needed for 30 Days Medicaid #: [id number] Jun, Active Neosporin Pain Relieving [place] 1 topical twice for 7 days Oct, Not-Taking Levemir Flex Touch 100 UNIT/ML 50 units Subcutaneous in the morning for 30 Active OneTouch Delica Plus [id number] - USE 1 LANCET FOUR TIMES A D AY NEEDED for 50 Active Dicyclomine HCl 10 MG TAKE ONE CAPSULE BY MOUTH FOUR TIMES A DAY for 30 Active Neosporin LT apply topically twice a day for 7 days Oct Not-Taking Pen [place] 5/16" 31G X 8 MM as directed [...] Information RESULTS No Results REASON FOR VISIT battery over weekend MEDICAL (GENERAL) HISTORY Type Description Date Medical [...] small bowel obstructi on 09/2020 Hospitalization History [facility] Hernia 11/2020 Goals Section No Information Health Concerns No Information MEDICAL EQUIPMENT No Information MENTAL STATUS No Information FUNCTIONAL STATUS No Information ASSESSMENTS Encounter Date Diagnosis Assessment Notes Treatment Notes Treatm ent Clinical Notes Feb, Generalized abdominal pain (ICD-10 - R10.84) PLAN OF TREATMENT Medication Medication Name Sig Start Date Stop Date Zofran 4 MG/2ML 4 mg Injection TID at least 6h apart for 30 Days Nov, HYDROmorphone HCl 2 MG 2 tablet as needed Orally every 6 hrs for 7 days Feb, [facility] Magnesium Oxide 250 MG 1 tablet with food Orally Once a day for 5 days Jan, Next Appt Details Provider Name:Tutu Sanchez, 5 10:45:00 AM, [address] [facility], , [place], [address], Provider Name:Tutu Sanchez, 2 10:30:00 AM, [address] [facility], , [place], [address], Provider Name:Mathew Worthington, 2021-05-17 11:00:00 AM, [address], , [place], [address], Insurance Providers Payer Name Payer Address Payer Phone Insured Name Patient Relati onship to Insured Coverage Start Date Coverage End Date [facility] [address] [facility] [id number] RUBA GRAFF,GLENN COOPER self
--- OUTSIDE RECORDS SUMMARY | 2021-03-23 18:53 | CCD ---
Author Author [facility] Organization [facility] Address Unknown Phone Unavailable Care Team Providers Care Marine Equipment Design Engineer Name Role Phone Kay Sparks Unavailable PROBLEMS Type Condition ICD9-CM Code NDC13-LG Code Onset Dates Condition S tatus W/U Status Risk SNOMED Code Notes Problem Complicated headache syndromes G44.59 Active confir med 853038242 Problem Chronic maxillary sinusitis J32.0 Active confirmed 64017050 Problem Unspecified asthma J45.909 Active confirmed 673893623 Problem Chronic pain associated with significant psychos ocial dysfunction G89.4 Active confirmed 146981278 Problem Chronic nausea R11.0 Active confirmed 85806 7007 Problem Left lower quadrant pain R10.32 Active confirmed 172289445 Problem History of abdominal surgery Z98.890 Active confirm ed 727648104 Problem 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 Active confirm ed 88967062 Problem Internal hemorrhoids without mention of complication K64.8 Active confirmed 16619948 Problem Mixed hyperlipidemia E78.2 Active confirmed 198348826 Problem Viral warts, unspecified B07.9 Active confirmed 00294950 Problem Breast calcification seen on mammogram R92.1 A ctive confirmed 099777353 Problem Pelvic muscle wasting N81.84 Active confirmed 49910567 Problem Hypomagnesemia E83.42 Active confirmed 83770 5004 Problem Anemia, chronic disease D63.8 Active confirmed 426082922 Problem Dysfunction of eustachian tube, bilateral H69.83 Active confirmed 63634153 Problem Esophageal reflux K21.9 Active confirmed 23 9578749 Problem DM w/o complication type II E11.9 Active confirmed 379381778 Problem Low back pain M54.5 Active confirmed 735953 009 Problem DM w/o complication type II, uncontrolled E11.65 Active confirmed 52866413 Problem Occipital neuralgia M54.81 Active confirmed 25744730 Problem MCC (current) use of insulin Z79.4 Activ e confirmed 917570657 Problem Chronic prescription opiate use Z79.899 Active confirmed 473448203 Problem Granulomatous disorder of the skin and s ubcutaneous tissue, unspecified L92.9 Active confirmed 056600431 Problem Multiple drug allergies Z88.9 Active confirmed 300811546 Problem Port catheter in place Z95.828 Active confirmed 272506688 Problem Myalgia M79.1 Active confirmed 71373850 Problem Chronic kidney disease, stage III (moderate) N18.3 Active confirmed 426818303 Problem Type 2 diabetes mellitus with stage 3 chronic kidney disea se E11.22 Active confirmed 16629909 Problem Fatty liver K76.0 Active confirmed 38879124 7 Problem Ileostomy status Z93.2 Active confirmed 302 537672 Problem Encounter for care related to vascular access port Z45.2 Active confirmed 077618285 Problem Complex regional pain syndrome I of left lower limb G90.522 Active confirmed 887510652 Problem Type 2 diabetes mellitus without complications E11 .9 Active confirmed 114415964 Problem MCC current use of insulin Z79.4 Active conf irmed 729454188 Problem Hypoglycemia E16.2 Active confirmed 8472536 03 Problem Myalgia, other site M79.18 Active confirmed 36328199 Problem Allergic rhinitis, unspecified seasonality, unspecifie d trigger J30.9 Active confirmed 27338584 Problem Constipation, unspecified constipation type K59.00 Active confirmed 92736132 Problem Pseudogout M11.20 Active confirmed 877489542 Problem Flexural eczema L20.82 Active confirmed 5709 2005 Problem Cervicalgia M54.2 Active confirmed 15195916 Problem Other chronic pain G89.29 Active confirmed 8 1323634 Problem Grief F43.20 Active confirmed 881124355 Problem Type 2 diabetes mellitus with hyperglycemia E11.65 Active confirmed 77299953 Problem Disorders of magnesium metabolism, unspecified E83 .40 Active confirmed 13519128 Problem Spinal cord stimulator status Z96.89 Active confirm ed 807784954 Problem Rosacea L71.9 Active confirmed 724734188 Problem Vaginal atrophy N95.2 Active confirmed 2971 40039 Problem Incisional hernia with obstruction but no gangrene K43.0 Active confirmed 573954613 Problem Falls frequently R29.6 Active confirmed 279 593588 ALLERGIES Allergen (clinical drug ingredient) Drug/Non Drug Allergy do cumented on EMR Reaction Allergy Type Onset Date Status morphine Morphine Sulfate(ND Code:[address]-27) severe h/a with big dose Drug Allergy Active codeine Codeine Sulfate(NDC Code:[address]-86) out of b vito experience Drug Allergy Active ketorolac Ketorolac Tromethamine(NDC Code:[address]-94) vomitin g Drug Allergy Active Gastrografin(NDC Code:[address]-61) Onl y 1 bottle per test day (can not tolerate any more than 1 bottle) Drug Allergy Active Penicillin (For Allergies Use Only) Hives Drug Allerg y Active tiagabine Gabitril(NDC Code:[address]-81) nervous Drug Allergy Active Baclofen affected nervous syt Drug Allergy Ac tive Vicodin Confusion Drug Allergy Active Phenothiazines Phenothiazines nervous system Drug Allergy Active red food dye rash Non Drug Allergy Active promethazine Promethazine HCl(NDC Code:[address]-32) out of body experience Drug Allergy Active Readi-Cat Hives Drug Allergy Active lorazepam Ativan(NDC Code:[address]-38) hallucinations Drug Allergy Active tizanidine Tizanidine HCl(NDC Code:[address]-20) Hives Drug All ergy Active droperidol Droperidol(NDC Code:[address]-03) out of body Drug Allerg y Active Latex Latex difficulty Drug Allergy Active iodine(NDC Code:50034-16342) nerves, tight muscles Drug Al lergy Active pregabalin Lyrica shakes, everything is black Drug Allergy Active nitrofurantoin, macrocrystals / nitrofurantoin, monohy drate Macrobid(NDC Code:[address]-51) Hives, blurred vision Drug Allergy Active azithromycin Azithromycin(NDC Code:[address]-74) hives Drug All ergy Active Sulfasalazine Sulfa Antibiotics Hives Drug Allergy Ac tive Oxycodone vomiting,hives Drug Allergy Active meperidine Meperidine HCl(NDC Code:[address]-35) out of dena dy experience Drug Allergy Active quinolones- cipro,tequin Hives Non Drug Allergy Active lidoderm (licocanine) heart races Non Drug Allergy Active gabapentin Gabapentin([facility] NAMED [facility] Code:[address]-35) nervous syste m,shakey Drug Allergy Active fentanyl Fentanyl(ND Code:[address]-17) nervous Drug Allergy Active tramadol Tramadol(ND Code:[address]-46) shakes Drug Allergy Active albuterol Albuterol Sulfate(ND Code:[address]-64) cough Drug Allergy Active aspirin Aspirin(ND Code:[address]-98) Hives Drug Allergy Active ENCOUNTERS from 1960 to 2021-02-13 Encounter Location Date Provider Diagnosis [facility] [address] [place] [address] Feb, Kay Sparks IMMUNIZATIONS Vaccine Route Administration Date Status Hepatitis A & B 1mL Twinrix IM Intramuscular Apr 15, 2012 Adm inistered Pneumococcal Adult 0.5mL Pneumovax 23 IM Intramuscular Feb 22 013 Administered Influenza 6mo & up Fluzone IM Intramuscular Feb 03, 2017 Admi nistered Pneumococcal Adult 0.5mL Pneumovax 23 IM Intramuscular September 25, 2018 Administered Pneumococcal Adult 0.5mL Pneumovax 23 Unknown Jan 26 16 Administered Hepatitis A & B 1mL Twinrix IM Intramuscular October 02, 2011 Adm inistered Hepatitis A & B 1mL Twinrix IM Intramuscular Feb 11, 2012 Adm inistered Influenza 6mo & up Fluzone IM Intramuscular Jan 12, 2010 Admi nistered Influenza 18 yrs & older Flublok IM Intramuscular Jan 23, 2018 Administered Influenza 18 yrs & older Flublok IM Intramuscular Jan 30, 2021 Administered TDAP Unknown September 13, 2009 Administered [...] Education Language: Question Answer Notes Languages spoken: Surinamese Roman Catholic: Question Answer Notes Roman Catholic 15 Presbyterian Sexual Hx: Question Answer Notes [...] Start Da te End Date Status May Jackson Bags (72951) ICD:v55.3 change as needed (Payton cao) for [...] 6 hrs for 7 days Feb, Active Metoclopramide HCl 10 MG 1 tablet [...] for 5 days Jan, Active Nystatin Powder 625749 UNIT/GM apply Externally four t imes a day under the left breast for 14 day(s) Oct, Active Ammonium Lactate 12 % 1 application Externally Twice a day to feet fo r 30 Active Ondansetron HCl 4 MG/2ML INJECT 1 VIAL [4MG] TWO TIME S A DAY AT LEAST 8 HOURS APART DIRECTED for 30 Active Saline Nasal Rodessa 0.65 % 1-2 sprays right nostril Sudeep ally 2-3 times a day for 7 day(s) Sep, Active Estradiol 0.1 MG/GM _insert ONE GRAM VAGINALLY EVERY DAY for 30 Active Syringe 2-3 ML 3 ML dx: r11.0 intramuscularly tid prn for 30 Day s Feb, Active Cephalexin 500 MG 1 capsule Orally Four times a day Not-Taking May have jerome wafers flating flanges ICD: v55.3 ( 05286 2 1/2 change as needed (Tatianna) Active Victoza 18 MG/3ML 1.8mg Subcutaneous Daily Mar, Active Nystatin 601562 UNIT/GM APPLY TO AFFECTED AREA(S) AR OUND STOMA 2 TIMES A DAY DIRECTED UNTIL HEALED Externally Twice a day for 14 days Not-Taking Hydrocodone-Chlorpheniramine 5ml orally q12h prn for 11 days Jan, Not-Taking Glucometer testing 4 times a day and as needed Dx: E11/65 for 30 days Medicaid #: [id number] Jun, Active Cephalexin 500 MG 1 capsule [...] 6h apart for 30 Days Nov, Active Ciclopirox 8 % 1 application to the l 5th f ingernail Externally Once a day, clean off with an alcohol prep pad once a week for 90 day(s) Mar, Not-Taking Nystatin 272203 UNIT/GM 1 application Externally Twice a day for 15 Active HYDROmorphone HCl 2 MG 2 tablets as needed Orally every 6 hr s for 7 days MDD of 8 mg please. Nov, Not-Taking Nystatin 017889 UNIT/GM 1 application Externally Four times a [...] TIMES A DAY NEEDED for 14 Active Ipratropium-Albuterol 0.5-2.5 (3) MG/3ML 3 ml Inhalati on every 6 hrs PRN for 30 days Dec, Active Levemir Flex Touch 100 UNIT/ML 50 units Subcutaneous in the morning for 30 Active Hospital bed use daily [...] as needed for 30 Days Medicaid #: [id number] Jun, Active Neosporin Pain Relieving Rodessa 1 topical twice for 7 days Oct, Not-Taking Cavilon spray Apply a uniform coating of f ilm over the ostomy region topically Daily and as needed Dx: Z93.2 for 28 day(s) Oct, Active OneTouch Delica Plus [id number] - USE 1 LANCET FOUR TIMES A D AY NEEDED for 50 Active Dicyclomine HCl 10 MG TAKE ONE CAPSULE BY MOUTH FOUR TIMES A DAY for 30 Active Neosporin LT apply topically twice a day for 7 days Oct Not-Taking [employer] 5/16" 31G X 8 MM as directed [...] RESULTS No Results REASON FOR VISIT refill MEDICAL (GENERAL) HISTORY Type Description Date Medical [...] - small bowel obstruction 9 Hospitalization History [facility]- short gut syndrome 06/29/19 Hospitalization History [facility] - ilius vs small bowel obstructi on 09/[address] [facility] - Ventral Hernia 11/2020 Goals Section [...] every 6 hrs for 7 days Feb, Ipratropium-Albuterol 0.5-2.5 (3) MG/3ML 3 ml Inhalati on every 6 hrs PRN for 30 days Dec, [facility] Magnesium Oxide 250 MG 1 tablet with food Orally Once a day for 5 days Jan, Next Appt Details Provider Name:Tutu Keven Sanchez, 5 10:45:00 AM, [address] [facility], , [place], [address], Provider Name:Tutu Sanchez, 2 10:30:00 AM, [address] [place] [address], , [place], [address], Provider Name:Mathew Worthington, 2021-05-17 11:00:00 AM, [address], , [place], [address], Insurance Providers Payer Name Payer Address Payer Phone Insured Name Patient Relati onship to Insured Coverage Start Date Coverage End Date [facility] [address] [facility] [id number] RUBA GRAFF,GLENN COOPER self
--- OUTSIDE RECORDS SUMMARY | 2021-03-23 18:53 | CCD ---
Author Author [facility] Organization [facility] Address Unknown Phone Unavailable Care Team Providers Care Coil Inspector Name Role Phone Tutu Sanchez Unavailable PROBLEMS Type Condition ICD9-CM Code OSG48-HD Code Onset Dates Condition S tatus W/U Status Risk SNOMED Code Notes Problem Complicated headache syndromes G44.59 Active confir med 306946803 Problem Chronic maxillary sinusitis J32.0 Active confirmed 16481952 Problem Unspecified asthma J45.909 Active confirmed 091534655 Problem Chronic pain associated with significant psychos ocial dysfunction G89.4 Active confirmed 655280101 Problem Chronic nausea R11.0 Active confirmed 49381 7007 Problem Left lower quadrant pain R10.32 Active confirmed 860269916 Problem History of abdominal surgery Z98.890 Active confirm ed 170520593 Problem 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 Active confirm ed 24529317 Problem Internal hemorrhoids without mention of complication K64.8 Active confirmed 08972313 Problem Mixed hyperlipidemia E78.2 Active confirmed 514955877 Problem Viral warts, unspecified B07.9 Active confirmed 73243957 Problem Breast calcification seen on mammogram R92.1 A ctive confirmed 821685623 Problem Pelvic muscle wasting N81.84 Active confirmed 06608445 Problem Hypomagnesemia E83.42 Active confirmed 49521 5004 Problem Anemia, chronic disease D63.8 Active confirmed 786974127 Problem Dysfunction of eustachian tube, bilateral H69.83 Active confirmed 11958936 Problem Esophageal reflux K21.9 Active confirmed 23 9423408 Problem DM w/o complication type II E11.9 Active confirmed 839264817 Problem Low back pain M54.5 Active confirmed 909080 009 Problem DM w/o complication type II, uncontrolled E11.65 Active confirmed 84181641 Problem Occipital neuralgia M54.81 Active confirmed 00524722 Problem group home (current) use of insulin Z79.4 Activ e confirmed 788880164 Problem Chronic prescription opiate use Z79.899 Active confirmed 373639628 Problem Granulomatous disorder of the skin and s ubcutaneous tissue, unspecified L92.9 Active confirmed 317693776 Problem Multiple drug allergies Z88.9 Active confirmed 649853316 Problem Port catheter in place Z95.828 Active confirmed 008041243 Problem Myalgia M79.1 Active confirmed 26508310 Problem Chronic kidney disease, stage III (moderate) N18.3 Active confirmed 982106197 Problem Type 2 diabetes mellitus with stage 3 chronic kidney disea se E11.22 Active confirmed 52265680 Problem Fatty liver K76.0 Active confirmed 24750241 7 Problem Ileostomy status Z93.2 Active confirmed 302 326320 Problem Encounter for care related to vascular access port Z45.2 Active confirmed 958140719 Problem Complex regional pain syndrome I of left lower limb G90.522 Active confirmed 695067412 Problem Type 2 diabetes mellitus without complications E11 .9 Active confirmed 704867788 Problem 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 Active conf irmed 386779186 Problem Hypoglycemia E16.2 Active confirmed 0139718 03 Problem Myalgia, other site M79.18 Active confirmed 15907407 Problem Allergic rhinitis, unspecified seasonality, unspecifie d trigger J30.9 Active confirmed 66656164 Problem Constipation, unspecified constipation type K59.00 Active confirmed 79267669 Problem Pseudogout M11.20 Active confirmed 495512335 Problem Flexural eczema L20.82 Active confirmed 5709 2006 Problem Cervicalgia M54.2 Active confirmed 81195363 Problem Other chronic pain G89.29 Active confirmed 8 7848089 Problem Grief F43.20 Active confirmed 234289797 Problem Type 2 diabetes mellitus with hyperglycemia E11.65 Active confirmed 80343268 Problem Disorders of magnesium metabolism, unspecified E83 .40 Active confirmed 48760048 Problem Spinal cord stimulator status Z96.89 Active confirm ed 857482584 Problem Rosacea L71.9 Active confirmed 374372453 Problem Vaginal atrophy N95.2 Active confirmed 2971 53726 Problem Incisional hernia with obstruction but no gangrene K43.0 Active confirmed 129216599 Problem Falls frequently R29.6 Active confirmed 279 560541 ALLERGIES Allergen (clinical drug ingredient) Drug/Non Drug Allergy do cumented on EMR Reaction Allergy Type Onset Date Status morphine Morphine Sulfate(ND Code:[address]-29) severe h/a with big dose Drug Allergy Active codeine Codeine Sulfate(NDC Code:[address]-70) out of b vito experience Drug Allergy Active ketorolac Ketorolac Tromethamine(NDC Code:[address]-99) vomitin g Drug Allergy Active Gastrografin(NDC Code:[address]-62) Onl y 1 bottle per test day (can not tolerate any more than 1 bottle) Drug Allergy Active Penicillin (For Allergies Use Only) Hives Drug Allerg y Active tiagabine Gabitril(NDC Code:[address]-40) nervous Drug Allergy Active Baclofen affected nervous syt Drug Allergy Ac tive Vicodin Confusion Drug Allergy Active Phenothiazines Phenothiazines nervous system Drug Allergy Active red food dye rash Non Drug Allergy Active promethazine Promethazine HCl(NDC Code:[address]-11) out of body experience Drug Allergy Active Readi-Cat Hives Drug Allergy Active lorazepam Ativan(NDC Code:[address]-06) hallucinations Drug Allergy Active tizanidine Tizanidine HCl(NDC Code:[address]-30) Hives Drug All ergy Active droperidol Droperidol(NDC Code:[address]-82) out of body Drug Allerg y Active Latex Latex difficulty Drug Allergy Active iodine(NDC Code:32569-37357) nerves, tight muscles Drug Al lergy Active pregabalin Lyrica shakes, everything is black Drug Allergy Active nitrofurantoin, macrocrystals / nitrofurantoin, monohy drate Macrobid(NDC Code:[address]-60) Hives, blurred vision Drug Allergy Active azithromycin Azithromycin(NDC Code:[address]-42) hives Drug All ergy Active Sulfasalazine Sulfa Antibiotics Hives Drug Allergy Ac tive Oxycodone vomiting,hives Drug Allergy Active meperidine Meperidine HCl(NDC Code:[address]-40) out of dena dy experience Drug Allergy Active quinolones- cipro,tequin Hives Non Drug Allergy Active lidoderm (licocanine) heart races Non Drug Allergy Active gabapentin Gabapentin([facility] Code:[address]-13) nervous syste m,shakey Drug Allergy Active fentanyl Fentanyl(ND Code:[address]-16) nervous Drug Allergy Active tramadol Tramadol(ND Code:[address]-31) shakes Drug Allergy Active albuterol Albuterol Sulfate([facility] Code:[address]-40) cough Drug Allergy Active aspirin Aspirin(ND Code:[address]-27) Hives Drug Allergy Active ENCOUNTERS from 1960 to 2021-02-08 Encounter Location Date Provider Diagnosis [address] [phone] [place] [address] Jan, Tutu Sanchez Encounter for immunization Z 23 IMMUNIZATIONS Vaccine Route Administration Date Status Toradol [...] Education Language: Question Answer Notes Languages spoken: Latvian Lutheran: Question Answer Notes Lutheran 15 Presbyterian Sexual Hx: Question Answer Notes [...] Start Da te End Date Status August Hardy Bags (79451) ICD:v55.3 change as needed (Payton cao) for [...] day x 10 da ys Active Nystatin 445581 UNIT/GM 1 application Externally Twice a day [...] for 5 days Jan, Active Nystatin Powder 495523 UNIT/GM apply Externally four t imes a day under the left breast for 14 day(s) Oct, Active Ammonium Lactate 12 % 1 application Externally Twice a day to feet fo r 30 Active Medipore H Surgical 4"x10yd - as directed May, Active Saline Nasal Apison 0.65 % 1-2 sprays right nostril Sudeep [...] jerome wafers flating flanges ICD: v55.3 ( 63021 2 1/2 change as needed (Tatianna) Active Victoza 18 MG/3ML 1.8mg Subcutaneous Daily Mar, Active Nystatin 053909 UNIT/GM APPLY TO AFFECTED AREA(S) AR OUND STOMA 2 TIMES A DAY DIRECTED UNTIL HEALED Externally Twice a day for 14 days Not-Taking Hydrocodone-Chlorpheniramine 5ml orally q12h prn for 11 days Jan, Not-Taking Glucometer testing 4 times a day and as needed Dx: E11/65 for 30 days Medicaid #: [id number] Jun, Active Cephalexin 500 MG 1 capsule [...] of 8 mg please. Nov, Not-Taking Nystatin 144332 UNIT/GM 1 application Externally Four times a [...] as needed for 30 Days Medicaid #: [id number] Jun, Active Neosporin Pain Relieving Apison 1 topical twice for 7 days Oct, Not-Taking Levemir Flex Touch 100 UNIT/ML 50 units Subcutaneous in the morning for 30 Active OneTouch Delica Plus [id number] - USE 1 LANCET FOUR TIMES A D AY NEEDED for 50 Active Dicyclomine HCl 10 MG TAKE ONE CAPSULE BY MOUTH FOUR TIMES A DAY for 30 Active Neosporin LT apply topically twice a day for 7 days Oct Not-Taking Pen [place]field 5/16" 31G X 8 MM as directed [...] f or 90 day(s) August, Active PROCEDURES from 1960 to 2021-02-08 Procedure Date Ordered Result Body Site Imm: Flublok Quadrivalent 18 years & older 0.5mL IM Influenza 01-02-19 N/A RESULTS No Results REASON FOR VISIT flu shot MEDICAL (GENERAL) HISTORY Type Description Date Medical [...] small bowel obstructi on 09/2020 Hospitalization History [facility] - Ventral Hernia 11/2020 Goals Section No Information Health Concerns No Information MEDICAL EQUIPMENT No Information MENTAL STATUS No Information FUNCTIONAL STATUS No Information ASSESSMENTS Encounter Date Diagnosis Assessment Notes Treatment Notes Treatm ent Clinical Notes Jan, Encounter for immunization (ICD-10 - Z23) PLAN OF TREATMENT Medication Medication Name Sig Start Date Stop Date Zofran 4 MG/2ML 4 mg Injection TID at least 6h apart for 30 Days Nov, [facility] Magnesium Oxide 250 MG 1 tablet with food Orally Once a day for 5 days Jan, Next Appt Details Provider Name:Tutu Sanchez, 2 10:30:00 AM, [address] [facility], , [place], [address], Provider Name:Mathew Worthington, 2021-05-17 11:00:00 AM, [address] [facility] [address] [facility], , [place], [address], Insurance Providers Payer Name Payer Address Payer Phone Insured Name Patient Relati onship to Insured Coverage Start Date Coverage End Date [facility] [address] [place] [id number] GLENN JACOBSON
--- OUTSIDE RECORDS SUMMARY | 2021-03-23 18:53 | CCD | Continuity of Care Document ---
Author Rich Schroeder DPM Organization Unknown Address [address] [place] [address], [facility] [address] [place] [address] Phone [phone] Care Team Providers Care Rn Testing Name Role Phone Tutu Sanchez M.D. [phone] Problems Active Problems Provider Date Type 2 diabetes mellitus with diabetic polyneuropathy Wali Taveras DPM Onset: 06/11/2019 Onychomycosis Wali Taveras DPM Onset: 03/30/2020 Corns and callosities Wali Taveras DPM Onset: 03/30/2020 Social History Type Date Description Comments Sex Unknown ETOH Use Never used alcohol Tobacco Use Start: Unknown Patient has never smoked Allergies and adverse reactions Active Allergies Criticality Reaction | Severity Comments Date Penicillins Unable to assess criticality hives 12/28/2012 Iodine Unable to assess criticality seizures 12/28/2012 Demerol Unable to assess criticality itching, nig htmares 05/28/2019 Morphine Unable to assess criticality itching, nig htmares 05/28/2019 Medications Active Medications SIG Qnty Indications Ordering Provide r Date Vitamin D3 25mcg (1000 Ut) Tablets Take 1 Tablet By Mouth Every Day 90tabs Wali Taveras DPM 0 06/25/2019 Hydromorphone HCL 4mg Tablets Laura Mariscal,Tutu Triamcinolone Acetonide 0.1% Cream Laura Mariscal,Tutu NM-Acid Gas Relief 80mg Chewtabs Laura Mariscal,Tutu SM Pediatric Electrolyte Solution Take 330ML By Mouth Three Times A Day Unknown Sucralfate 1gm Tablets Take One Tablet By Mouth Twice A Day Unknown Ondansetron HCL 4mg/2ML Solution Inject 4MG 2MLS Twice A Day AT Least 8 Hours Apart as Directed Unknown Lactulose 10GM/15ML Solution Take 15ML By Mouth Three Times A Day Unknown 00 Ammonium Lactate 12% Lotion Apply To Affected Area Two Times A Day Unknown Nystatin 507407Wbwt/GM Powder Apply To Affected Area S Around Stoma Two Times A Day as Directed Until Healed Unknown Ipratropium [place]/Albuterol Sulfate 0.5-2.5(3)mg/3ML Solution Use 1 Vial Via Nebulizer Every 6 Hours as Needed Unknown Amitriptyline HCL 50mg Tablets as Directed 1 Tab.By Mouth In A.M. And 3 Tablets AT Bedtime Unknown Prednisone 50mg Tablets Take 1 Tablet By Mouth Once A Day For 5 Days Unknown Metoclopramide HCL 10mg Tablets Take One Tablet By Mouth With Meals And AT Bedtime Unknow n Albuterol Sulfate HFA 108(90Base) mcg/Act Aerosol Inhale 2 Puffs By Mouth Every 4 Hours as Needed Unknown Medications Administered in Office Medication SIG Qnty Indications Ordering Provider Date Inject Triamcinolone Acetonide 10 ML, ND C 9872-7440-22 Injection Wali cooper, DP 05/21/2016 Inject Dexamthosone Phosphate 91516-358- 30 Injection Wali Taveras, XENA 017 Inject Triamcinolone Acetonide 10 ML, ND C 3566-1322-17 Injection Wali cooper, DP 03/06/2016 Inject Dexamthosone Phosphate 56314-801- 30 Injection Wali Taveras, XENA 016 Inject Triamcinolone Acetonide 10 ML, ND C 4397-7435-67 Injection Tigre cooper, DP 06/16/2013 Inject Dexamthosone Phosphate 91137-263- 30 Injection Tigre Taveras, XENA 014 Immunizations Description No Information Available Vital Signs Date Vital Result Comment 05/28/2019 2:13pm Height 67 inches 5'7" Weight 135.00 lb BP Systolic 124 mmHg BP Diastolic 70 mmHg Heart Rate 74 /min BMI (Body Mass Index) 21.1 kg/m2 12/28/2012 10:19am Height 67 inches 5'7" Weight 169.00 lb BP Systolic 114 mmHg BP Diastolic 70 mmHg Heart Rate 80 /min BMI (Body Mass Index) 26.5 kg/m2 Results Description No Information Available Procedures Date Code Description Status 01/29/2021 53394 Office/Outpatient Established SF MDM 10-19 Min Completed 10/06/2020 84212 Office/Outpatient Established SF MDM 10-19 Min Completed Medical Devices Description No Information Available Encounters Type Date Location Provider Dx Diagnosis Office Visit 01/29/2021 10:45a [place] [facility] Wali Taveras DPM B35.1 Tinea unguium E11.42 Type 2 diabetes mellitus wit h diabetic polyneuropathy Office Visit 10/06/2020 11:00a [place] [facility] Wali Taveras DPM B35.1 Tinea unguium L84 Corns and callosities E11.42 Type 2 diabetes mellitus wit h diabetic polyneuropathy Assessments Date Code Description Provider 01/29/2021 B35.1 Tinea unguium Wali Taveras, XENAM 01/29/2021 E11.42 Type 2 diabetes mellitus with di abetic polyneuropathy Wali Taveras DPM 10/06/2020 B35.1 Tinea unguium Wali Taveras, RANJEET 10/06/2020 L84 Corns and callosities Wali Taveras DPM 10/06/2020 E11.42 Type 2 diabetes mellitus with di abetic polyneuropathy Wali Taveras DPM Plan of Treatment Future Appointment(s):* 05/01/2021 10:45 am - Wali Taveras DPM at [facility] Functional Status Description No Information Available Mental Status Description No Information Available Referrals Description No Information Available
--- OUTSIDE RECORDS SUMMARY | 2021-03-23 18:53 | CCD ---
Author Author [facility] Organization [facility] Address Unknown Phone Unavailable Care Team Providers Care Glass Setter Name Role Phone Tutu Sanchez Unavailable PROBLEMS Type Condition ICD9-CM Code UKJ00-EP Code Onset Dates Condition S tatus W/U Status Risk SNOMED Code Notes Problem Complicated headache syndromes G44.59 Active confir med 071228133 Problem Chronic maxillary sinusitis J32.0 Active confirmed 26002687 Problem Unspecified asthma J45.909 Active confirmed 520413816 Problem Chronic pain associated with significant psychos ocial dysfunction G89.4 Active confirmed 288511984 Problem Chronic nausea R11.0 Active confirmed 57195 7007 Problem Left lower quadrant pain R10.32 Active confirmed 374228969 Problem History of abdominal surgery Z98.890 Active confirm ed 283599488 Problem 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 Active confirm ed 82008845 Problem Internal hemorrhoids without mention of complication K64.8 Active confirmed 35941126 Problem Mixed hyperlipidemia E78.2 Active confirmed 469305287 Problem Viral warts, unspecified B07.9 Active confirmed 79449899 Problem Breast calcification seen on mammogram R92.1 A ctive confirmed 354140409 Problem Pelvic muscle wasting N81.84 Active confirmed 91625048 Problem Hypomagnesemia E83.42 Active confirmed 71420 5004 Problem Anemia, chronic disease D63.8 Active confirmed 815921142 Problem Dysfunction of eustachian tube, bilateral H69.83 Active confirmed 34337325 Problem Esophageal reflux K21.9 Active confirmed 23 7542433 Problem DM w/o complication type II E11.9 Active confirmed 887489924 Problem Low back pain M54.5 Active confirmed 212523 009 Problem DM w/o complication type II, uncontrolled E11.65 Active confirmed 49701503 Problem Occipital neuralgia M54.81 Active confirmed 85143287 Problem [facility] (current) use of insulin Z79.4 Activ e confirmed 626025995 Problem Chronic prescription opiate use Z79.899 Active confirmed 926382405 Problem Granulomatous disorder of the skin and s ubcutaneous tissue, unspecified L92.9 Active confirmed 225066955 Problem Multiple drug allergies Z88.9 Active confirmed 039612855 Problem Port catheter in place Z95.828 Active confirmed 607521314 Problem Myalgia M79.1 Active confirmed 49073159 Problem Chronic kidney disease, stage III (moderate) N18.3 Active confirmed 369312803 Problem Type 2 diabetes mellitus with stage 3 chronic kidney disea se E11.22 Active confirmed 48205036 Problem Fatty liver K76.0 Active confirmed 41867248 7 Problem Ileostomy status Z93.2 Active confirmed 302 199673 Problem Encounter for care related to vascular access port Z45.2 Active confirmed 196408155 Problem Complex regional pain syndrome I of left lower limb G90.522 Active confirmed 003122784 Problem Type 2 diabetes mellitus without complications E11 .9 Active confirmed 619172695 Problem terminal gauger current use of insulin Z79.4 Active conf irmed 303228719 Problem Hypoglycemia E16.2 Active confirmed 9010436 03 Problem Myalgia, other site M79.18 Active confirmed 52906385 Problem Allergic rhinitis, unspecified seasonality, unspecifie d trigger J30.9 Active confirmed 57818163 Problem Constipation, unspecified constipation type K59.00 Active confirmed 65670939 Problem Pseudogout M11.20 Active confirmed 268763685 Problem Flexural eczema L20.82 Active confirmed 5709 2006 Problem Cervicalgia M54.2 Active confirmed 25174601 Problem Other chronic pain G89.29 Active confirmed 8 9608480 Problem Grief F43.20 Active confirmed 006563239 Problem Type 2 diabetes mellitus with hyperglycemia E11.65 Active confirmed 77160501 Problem Disorders of magnesium metabolism, unspecified E83 .40 Active confirmed 06906267 Problem Spinal cord stimulator status Z96.89 Active confirm ed 737748846 Problem Rosacea L71.9 Active confirmed 262003083 Problem Vaginal atrophy N95.2 Active confirmed 2971 38340 Problem Incisional hernia with obstruction but no gangrene K43.0 Active confirmed 664597943 Problem Falls frequently R29.6 Active confirmed 279 837016 ALLERGIES Allergen (clinical drug ingredient) Drug/Non Drug Allergy do cumented on EMR Reaction Allergy Type Onset Date Status morphine Morphine Sulfate(ND Code:[address]-08) severe h/a with big dose Drug Allergy Active codeine Codeine Sulfate(NDC Code:[address]-29) out of b vito experience Drug Allergy Active ketorolac Ketorolac Tromethamine(NDC Code:[address]-24) vomitin g Drug Allergy Active Gastrografin(NDC Code:[address]-88) Onl y 1 bottle per test day (can not tolerate any more than 1 bottle) Drug Allergy Active Penicillin (For Allergies Use Only) Hives Drug Allerg y Active tiagabine Gabitril(NDC Code:[address]-48) nervous Drug Allergy Active Baclofen affected nervous syt Drug Allergy Ac tive Vicodin Confusion Drug Allergy Active Phenothiazines Phenothiazines nervous system Drug Allergy Active red food dye rash Non Drug Allergy Active promethazine Promethazine HCl(NDC Code:[address]-04) out of body experience Drug Allergy Active Readi-Cat Hives Drug Allergy Active lorazepam Ativan(NDC Code:[address]-06) hallucinations Drug Allergy Active tizanidine Tizanidine HCl(NDC Code:[address]-74) Hives Drug All ergy Active droperidol Droperidol(NDC Code:[address]-82) out of body Drug Allerg y Active Latex Latex difficulty Drug Allergy Active iodine(NDC Code:52715-14154) nerves, tight muscles Drug Al lergy Active pregabalin Lyrica shakes, everything is black Drug Allergy Active nitrofurantoin, macrocrystals / nitrofurantoin, monohy drate Macrobid(NDC Code:[address]-23) Hives, blurred vision Drug Allergy Active azithromycin Azithromycin(NDC Code:[address]-85) hives Drug All ergy Active Sulfasalazine Sulfa Antibiotics Hives Drug Allergy Ac tive Oxycodone vomiting,hives Drug Allergy Active meperidine Meperidine HCl(NDC Code:[address]-53) out of dena dy experience Drug Allergy Active quinolones- cipro,tequin Hives Non Drug Allergy Active lidoderm (licocanine) heart races Non Drug Allergy Active gabapentin Gabapentin([facility] Code:[address]-43) nervous syste m,shakey Drug Allergy Active fentanyl Fentanyl(ND Code:[address]-99) nervous Drug Allergy Active tramadol Tramadol(ND Code:[address]-66) shakes Drug Allergy Active albuterol Albuterol Sulfate([facility] Code:[address]-70) cough Drug Allergy Active aspirin Aspirin(ND Code:[address]-27) Hives Drug Allergy Active ENCOUNTERS from 1960 to 2021-02-12 Encounter Location Date Provider Diagnosis [place] [address] [facility] [phone] [place] [address] Jan, Tutu Sanchez Screening mammogram for [place] [address] cancer Z12.31 IMMUNIZATIONS Vaccine Route Administration Date Status Hepatitis A & B 1mL Twinrix IM Intramuscular Feb 11, 2012 Adm inistered Hepatitis A & B 1mL Twinrix IM Intramuscular Apr 15, 2012 Adm inistered Pneumococcal Adult 0.5mL Pneumovax 23 IM Intramuscular Feb 22 013 Administered Pneumococcal Adult 0.5mL Pneumovax 23 IM Intramuscular September 25, 2018 Administered TDAP Unknown September 13, 2009 Administered Pneumococcal Adult 0.5mL Pneumovax 23 Unknown Jan 26 16 Administered Hepatitis A & B 1mL Twinrix IM Intramuscular October 02, 2011 Adm inistered Influenza 6mo & up Fluzone [...] Education Language: Question Answer Notes Languages spoken: Icelandic [facility]: Question Answer Notes [facility] 15 [employer] [...] Start Da te End Date Status May [place] ([address]396) ICD:v55.3 change as needed (Payton cao) for [...] of 8 mg please. Nov, Not-Taking Nystatin 974520 UNIT/GM 1 application Externally Four times a [...] jerome wafers flating flanges ICD: v55.3 ( 23865 2 1/2 change as needed (Tatianna) Active Victoza 18 MG/3ML 1.8mg Subcutaneous Daily Mar, Active Nystatin 537158 UNIT/GM APPLY TO AFFECTED AREA(S) AR OUND STOMA 2 TIMES A DAY DIRECTED UNTIL HEALED Externally Twice a day for 14 days Not-Taking Hydrocodone-Chlorpheniramine 5ml orally q12h prn for 11 days Jan, Not-Taking Glucometer testing 4 times a day and as needed Dx: E11/65 for 30 days Medicaid #: [id number] Jun, Active Mupirocin 2 % apply a small amount to righ t nostril with q-tip Externally twice a day for 7 days Sep, Active Saline Nasal [place] 0.65 % 1-2 sprays right nostril Sudeep [...] week for 90 day(s) Mar, Not-Taking Nystatin 543584 UNIT/GM 1 application Externally Twice a day [...] for 5 days Jan, Active Nystatin Powder 762725 UNIT/GM apply Externally four t imes a [...] as needed for 30 Days Medicaid #: [id number] Jun, Active Neosporin Pain Relieving [place] 1 topical twice for 7 days Oct, Not-Taking Levemir Flex Touch 100 UNIT/ML 50 units Subcutaneous in the morning for 30 Active OneTouch Delica Plus Ntoljp10I - USE 1 LANCET FOUR TIMES A D AY NEEDED for 50 Active Dicyclomine HCl 10 MG TAKE ONE CAPSULE BY MOUTH FOUR TIMES A DAY for 30 Active Neosporin LT apply topically twice a day for 7 days Oct Not-Taking Pen Vandervoort 5/16" 31G X 8 MM as directed [...] Information RESULTS No Results REASON FOR VISIT Mammogram MEDICAL (GENERAL) HISTORY Type Description Date Medical [...] Surgical History Cyst removed right nostril- Dr Carrilol. Surgical History repair two hernias and repair [...] small bowel obstructi on 09/2020 Hospitalization History [facility] Hernia 11/2020 Goals Section No Information Health Concerns No Information MEDICAL EQUIPMENT No Information MENTAL STATUS No Information FUNCTIONAL STATUS No Information ASSESSMENTS Encounter Date Diagnosis Assessment Notes Treatment Notes Treatm ent Clinical Notes Jan, Screening mammogram for breast cancer (ICD-10 - Z12.31) PLAN OF TREATMENT Medication Medication Name Sig Start Date Stop Date Zofran 4 MG/2ML 4 mg Injection TID at least 6h apart for 30 Days Nov, HYDROmorphone HCl 2 MG 2 tablet as needed Orally every 6 hrs for 7 days Feb, [facility] Magnesium Oxide 250 MG 1 tablet with food Orally Once a day for 5 days Jan, Pending Tests Test Name Order Date WMM DIGITAL MAMMO SCREENING BILAT (Ultra sound if indicated) [facility] 2021-02-08 Next Appt Details Provider Name:Tutu Sanchez, 5 10:45:00 AM, [address] [facility], , [place], [address], Provider Name:Tutu Sanchez, 2 10:30:00 AM, [address] [facility], , [place], [address], Provider Name:Mathew Worthington, 2021-05-17 11:00:00 AM, [address], , [place], [address], Insurance Providers Payer Name Payer Address Payer Phone Insured Name Patient Relati onship to Insured Coverage Start Date Coverage End Date [facility] [place] [address] [facility] [id number] GLENN JACOBSON self
--- OUTSIDE RECORDS SUMMARY | 2021-03-23 18:53 | CCD ---
Author Author [facility] Organization [facility] Address Unknown Phone Unavailable Care Team Providers Care Regional Administrative Assistant Name Role Phone Tutu Sanchez Unavailable PROBLEMS Type Condition ICD9-CM Code EOG67-OX Code Onset Dates Condition S tatus W/U Status Risk SNOMED Code Notes Problem Complicated headache syndromes G44.59 Active confir med 781302050 Problem Chronic maxillary sinusitis J32.0 Active confirmed 84238494 Problem Unspecified asthma J45.909 Active confirmed 174856712 Problem Chronic pain associated with significant psychos ocial dysfunction G89.4 Active confirmed 138172252 Problem Chronic nausea R11.0 Active confirmed 27324 7007 Problem Left lower quadrant pain R10.32 Active confirmed 361588275 Problem History of abdominal surgery Z98.890 Active confirm ed 585215528 Problem 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 Active confirm ed 49549758 Problem Internal hemorrhoids without mention of complication K64.8 Active confirmed 32469385 Problem Mixed hyperlipidemia E78.2 Active confirmed 981200288 Problem Viral warts, unspecified B07.9 Active confirmed 47818120 Problem Breast calcification seen on mammogram R92.1 A ctive confirmed 543941503 Problem Pelvic muscle wasting N81.84 Active confirmed 18676269 Problem Hypomagnesemia E83.42 Active confirmed 59580 5004 Problem Anemia, chronic disease D63.8 Active confirmed 963144343 Problem Dysfunction of eustachian tube, bilateral H69.83 Active confirmed 88928878 Problem Esophageal reflux K21.9 Active confirmed 23 3876497 Problem DM w/o complication type II E11.9 Active confirmed 391314564 Problem Low back pain M54.5 Active confirmed 318451 009 Problem DM w/o complication type II, uncontrolled E11.65 Active confirmed 46789338 Problem Occipital neuralgia M54.81 Active confirmed 64829472 Problem care home (current) use of insulin Z79.4 Activ e confirmed 987327666 Problem Chronic prescription opiate use Z79.899 Active confirmed 006942244 Problem Granulomatous disorder of the skin and s ubcutaneous tissue, unspecified L92.9 Active confirmed 755435006 Problem Multiple drug allergies Z88.9 Active confirmed 651578399 Problem Port catheter in place Z95.828 Active confirmed 442390966 Problem Myalgia M79.1 Active confirmed 73882200 Problem Chronic kidney disease, stage III (moderate) N18.3 Active confirmed 608037734 Problem Type 2 diabetes mellitus with stage 3 chronic kidney disea se E11.22 Active confirmed 29084253 Problem Fatty liver K76.0 Active confirmed 22421641 7 Problem Ileostomy status Z93.2 Active confirmed 302 938653 Problem Encounter for care related to vascular access port Z45.2 Active confirmed 647714322 Problem Complex regional pain syndrome I of left lower limb G90.522 Active confirmed 013222482 Problem Type 2 diabetes mellitus without complications E11 .9 Active confirmed 088960920 Problem runner man current use of insulin Z79.4 Active conf irmed 513929913 Problem Hypoglycemia E16.2 Active confirmed 9827094 03 Problem Myalgia, other site M79.18 Active confirmed 32218371 Problem Allergic rhinitis, unspecified seasonality, unspecifie d trigger J30.9 Active confirmed 29559534 Problem Constipation, unspecified constipation type K59.00 Active confirmed 46011471 Problem Pseudogout M11.20 Active confirmed 013437098 Problem Flexural eczema L20.82 Active confirmed 5709 2006 Problem Cervicalgia M54.2 Active confirmed 69510179 Problem Other chronic pain G89.29 Active confirmed 8 0664758 Problem Grief F43.20 Active confirmed 142259853 Problem Type 2 diabetes mellitus with hyperglycemia E11.65 Active confirmed 85826502 Problem Disorders of magnesium metabolism, unspecified E83 .40 Active confirmed 87854630 Problem Spinal cord stimulator status Z96.89 Active confirm ed 533728908 Problem Rosacea L71.9 Active confirmed 932821517 Problem Vaginal atrophy N95.2 Active confirmed 2971 00294 Problem Incisional hernia with obstruction but no gangrene K43.0 Active confirmed 593510275 Problem Falls frequently R29.6 Active confirmed 279 009482 ALLERGIES Allergen (clinical drug ingredient) Drug/Non Drug Allergy do cumented on EMR Reaction Allergy Type Onset Date Status morphine Morphine Sulfate(ND Code:[address]-51) severe h/a with big dose Drug Allergy Active codeine Codeine Sulfate(NDC Code:[address]-31) out of b vito experience Drug Allergy Active ketorolac Ketorolac Tromethamine(NDC Code:[address]-99) vomitin g Drug Allergy Active Gastrografin(NDC Code:[address]-52) Onl y 1 bottle per test day (can not tolerate any more than 1 bottle) Drug Allergy Active Penicillin (For Allergies Use Only) Hives Drug Allerg y Active tiagabine Gabitril(NDC Code:[address]-16) nervous Drug Allergy Active Baclofen affected nervous syt Drug Allergy Ac tive Vicodin Confusion Drug Allergy Active Phenothiazines Phenothiazines nervous system Drug Allergy Active red food dye rash Non Drug Allergy Active promethazine Promethazine HCl(NDC Code:[address]-51) out of body experience Drug Allergy Active Readi-Cat Hives Drug Allergy Active lorazepam Ativan(NDC Code:[address]-16) hallucinations Drug Allergy Active tizanidine Tizanidine HCl(NDC Code:[address]-51) Hives Drug All ergy Active droperidol Droperidol(NDC Code:[address]-14) out of body Drug Allerg y Active Latex Latex difficulty Drug Allergy Active iodine(NDC Code:21401-12605) nerves, tight muscles Drug Al lergy Active pregabalin Lyrica shakes, everything is black Drug Allergy Active nitrofurantoin, macrocrystals / nitrofurantoin, monohy drate Macrobid(NDC Code:[address]-22) Hives, blurred vision Drug Allergy Active azithromycin Azithromycin(NDC Code:[address]-57) hives Drug All ergy Active Sulfasalazine Sulfa Antibiotics Hives Drug Allergy Ac tive Oxycodone vomiting,hives Drug Allergy Active meperidine Meperidine HCl(NDC Code:[address]-26) out of dena dy experience Drug Allergy Active quinolones- cipro,tequin Hives Non Drug Allergy Active lidoderm (licocanine) heart races Non Drug Allergy Active gabapentin Gabapentin([facility] Code:[address]-07) nervous syste m,shakey Drug Allergy Active fentanyl Fentanyl(ND Code:[address]-38) nervous Drug Allergy Active tramadol Tramadol(ND Code:[address]-01) shakes Drug Allergy Active albuterol Albuterol Sulfate([facility] Code:[address]-25) cough Drug Allergy Active aspirin Aspirin(ND Code:[address]-59) Hives Drug Allergy Active ENCOUNTERS from 1960 to 2021-02-07 Encounter Location Date Provider Diagnosis [address] [phone] [place] [address] Jan, Tutu Sanchez IMMUNIZATIONS Vaccine Route Administration Date Status Rocephin 1gm Ceftriaxone IM Intramuscular Dec 21, 2015 Admini stered Rocephin 1gm Ceftriaxone IM Intramuscular Dec 22, 2015 Admini stered Rocephin 1gm Ceftriaxone IM Intramuscular Apr 26, 2016 Admini stered Toradol 60mg/2mL Ketorolac IM Intramuscular Feb 06, 2017 Admi nistered Toradol 60mg/2mL Ketorolac IM Intramuscular Feb 05, 2017 Admi nistered Rocephin 1gm Ceftriaxone IM Intramuscular Dec 15, 2015 Admini stered Rocephin 1gm Ceftriaxone IM Intramuscular Dec 19, 2015 Admini stered Rocephin 1gm Ceftriaxone IM Intramuscular Dec 20, 2015 Admini stered Influenza 6mo & up Fluzone IM Intramuscular Jan 12, 2010 Admi nistered TDAP Unknown September 13, 2009 Administered TD [...] IM Intramuscular Apr 15, 2012 Adm inistered Rocephin 1gm Ceftriaxone IM Intramuscular May 20, 2017 Admini stered Pneumococcal Adult 0.5mL Pneumovax 23 IM Intramuscular Feb 22 013 Administered Rocephin 1gm Ceftriaxone IM Intramuscular May 21, 2017 Admini stered Toradol 60mg/2mL Ketorolac IM Intramuscular Apr 22, 2016 Admi nistered Rocephin 1gm Ceftriaxone IM Intramuscular May 22, 2017 Admini stered Toradol 60mg/2mL Ketorolac IM Intramuscular Apr 26, 2016 Admi nistered Toradol 60mg/2mL Ketorolac IM Intramuscular Feb 21, 2017 Admi nistered Pneumococcal Adult 0.5mL Pneumovax 23 Unknown Jan 26 16 Administered Toradol 60mg/2mL Ketorolac IM Intramuscular Feb 24, 2017 Admi nistered Hepatitis A & B 1mL Twinrix IM Intramuscular October 02, 2011 Adm inistered Rocephin 1gm Ceftriaxone IM Intramuscular May 23, 2017 Admini stered Hepatitis A & B 1mL Twinrix IM Intramuscular Feb 11, 2012 Adm inistered Rocephin 1gm Ceftriaxone IM Intramuscular May 19, 2017 Admini stered Influenza 6mo & up Fluzone IM Intramuscular Feb 03, 2017 Admi nistered Pneumococcal Adult 0.5mL Pneumovax 23 IM Intramuscular September 25, 2018 Administered Toradol 60mg/2mL Ketorolac IM Intramuscular May 01, 2016 Admi nistered Toradol 60mg/2mL Ketorolac IM Intramuscular July 14, 2017 Admi nistered Toradol 60mg/2mL Ketorolac IM Intramuscular July 21, [...] 60mg/2mL Ketorolac IM Intramuscular 2017 Admi nistered Toradol 60mg/2mL Ketorolac IM Intramuscular September 25, 2017 Admi nistered Toradol 60mg/2mL Ketorolac IM Intramuscular Jan 10, 2017 Admi nistered Toradol 60mg/2mL Ketorolac IM Intramuscular September 26, 2017 Admi nistered Toradol 60mg/2mL Ketorolac IM Intramuscular September 22, 2017 Admi nistered Toradol 60mg/2mL Ketorolac IM Intramuscular Jan 17, 2017 Admi nistered Toradol 60mg/2mL Ketorolac IM Intramuscular October 06, 2018 Admi nistered Toradol 60mg/2mL Ketorolac IM Intramuscular Jan 20, 2017 Admi nistered Toradol 60mg/2mL Ketorolac IM Intramuscular Jan 21, 2017 Admi nistered Toradol 60mg/2mL Ketorolac IM Intramuscular Jan 22, 2017 Admi nistered Toradol 60mg/2mL Ketorolac IM Intramuscular Jan 09, 2017 Admi nistered Influenza 18 yrs & older Flublok IM Intramuscular Jan 23, 2018 Administered Toradol 60mg/2mL Ketorolac IM Intramuscular Jan 08, 2017 Admi nistered Toradol 60mg/2mL Ketorolac IM Intramuscular September 25, 2018 Admi nistered Toradol 60mg/2mL Ketorolac IM Intramuscular Jan 13, 2017 Admi nistered Toradol 60mg/2mL Ketorolac IM Intramuscular October 05, 2018 Admi nistered Toradol 60mg/2mL Ketorolac IM Intramuscular Feb 03, 2017 Admi nistered Toradol 60mg/2mL Ketorolac IM Intramuscular October 01, 2018 Admi nistered Toradol 60mg/2mL Ketorolac IM Intramuscular Jan 23, 2017 Admi nistered Toradol 60mg/2mL Ketorolac IM Intramuscular Jan 31, 2017 Admi nistered Toradol 60mg/2mL Ketorolac IM Intramuscular Feb 04, 2017 Admi nistered Toradol 60mg/2mL Ketorolac IM Intramuscular July 30, 2019 Admi nistered Influenza 18 yrs & older [...] Education Language: Question Answer Notes Languages spoken: Ivorian Baptism: Question Answer Notes Baptism 15 [employer] Sexual Hx: Question Answer Notes [...] Start Da te End Date Status August [place] Bags (03310) ICD:v55.3 change as needed (Payton cao) for [...] day x 10 da ys Active Nystatin 765295 UNIT/GM 1 application Externally Twice a day [...] for 5 days Jan, Active Nystatin Powder 419253 UNIT/GM apply Externally four t imes a day under the left breast for 14 day(s) Oct, Active Ammonium Lactate 12 % 1 application Externally Twice a day to feet fo r 30 Active Medipore H Surgical 4"x10yd - as directed May, Active Saline Nasal Cosby 0.65 % 1-2 sprays right nostril Sudeep [...] jerome wafers flating flanges ICD: v55.3 ( 34467 2 1/2 change as needed (Tatianna) Active Victoza 18 MG/3ML 1.8mg Subcutaneous Daily Mar, Active Nystatin 076283 UNIT/GM APPLY TO AFFECTED AREA(S) AR OUND STOMA 2 TIMES A DAY DIRECTED UNTIL HEALED Externally Twice a day for 14 days Not-Taking Hydrocodone-Chlorpheniramine 5ml orally q12h prn for 11 days Jan, Not-Taking Glucometer testing 4 times a day and as needed Dx: E11/65 for 30 days Medicaid #: [id number] Jun, Active Cephalexin 500 MG 1 capsule [...] of 8 mg please. Nov, Not-Taking Nystatin 399124 UNIT/GM 1 application Externally Four times a [...] as needed for 30 Days Medicaid #: [id number] Jun, Active Neosporin Pain Relieving Cosby 1 topical twice for 7 days Oct, Not-Taking Levemir Flex Touch 100 UNIT/ML 50 units Subcutaneous in the morning for 30 Active OneTouch Delica Plus [id number] - USE 1 LANCET FOUR TIMES A D AY NEEDED for 50 Active Dicyclomine HCl 10 MG TAKE ONE CAPSULE BY MOUTH FOUR TIMES A DAY for 30 Active Neosporin LT apply topically twice a day for 7 days Oct Not-Taking Pen [place] 16" 31G X 8 MM as directed [...] as needed f or day(s) August, Active PROCEDURES No Information RESULTS No Results REASON FOR VISIT the company no longer making medication MEDICAL (GENERAL) HISTORY Type Description Date Medical [...] small bowel obstructi on 09/2020 Hospitalization History [facility] Hernia 11/2020 Goals Section [...] Jan, Next Appt Details Provider Name:Tutu Sanchez, 2020-12-0 2 10:30:00 AM, [address] [facility], , [place], [address], Provider Name:Mathew Worthington, 2021-05-17 11:00:00 AM, [address], , [place], [address], Insurance Providers Payer Name Payer Address Payer Phone Insured Name Patient Relati onship to Insured Coverage Start Date Coverage End Date [facility] [address] [facility] [id number] RUBA GRAFF,GLENN COOPER self
--- OUTSIDE RECORDS SUMMARY | 2021-03-23 18:53 | CCD ---
Author Author [facility] Organization [facility] Address Unknown Phone Unavailable Care Team Providers Care Investigation Specialist Name Role Phone Reny Gonzalez Unavailable PROBLEMS Type Condition ICD9-CM Code [id number] Code Onset Dates Condition S tatus W/U Status Risk SNOMED Code Notes Problem Complicated headache syndromes G44.59 Active confir med 837684753 Problem Chronic maxillary sinusitis J32.0 Active confirmed 19664045 Problem Unspecified asthma J45.909 Active confirmed 339626834 Problem Chronic pain associated with significant psychos ocial dysfunction G89.4 Active confirmed 963040488 Problem Chronic nausea R11.0 Active confirmed 27782 7007 Problem Left lower quadrant pain R10.32 Active confirmed 281888154 Problem History of abdominal surgery Z98.890 Active confirm ed 580574736 Problem 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 Active confirm ed 79152380 Problem Internal hemorrhoids without mention of complication K64.8 Active confirmed 50766084 Problem Mixed hyperlipidemia E78.2 Active confirmed 411879058 Problem Viral warts, unspecified B07.9 Active confirmed 30185941 Problem Breast calcification seen on mammogram R92.1 A ctive confirmed 718937622 Problem Pelvic muscle wasting N81.84 Active confirmed 46066938 Problem Hypomagnesemia E83.42 Active confirmed 21388 5004 Problem Anemia, chronic disease D63.8 Active confirmed 598021972 Problem Dysfunction of eustachian tube, bilateral H69.83 Active confirmed 47129317 Problem Esophageal reflux K21.9 Active confirmed 23 1797108 Problem DM w/o complication type II E11.9 Active confirmed 313492131 Problem Low back pain M54.5 Active confirmed 205224 009 Problem DM w/o complication type II, uncontrolled E11.65 Active confirmed 99583243 Problem Occipital neuralgia M54.81 Active confirmed 42431927 Problem 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 manager (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 Z79.4 Activ e confirmed 036307120 Problem Chronic prescription opiate use Z79.899 Active confirmed 614482969 Problem Granulomatous disorder of the skin and s ubcutaneous tissue, unspecified L92.9 Active confirmed 034194631 Problem Multiple drug allergies Z88.9 Active confirmed 045861912 Problem Port catheter in place Z95.828 Active confirmed 831867808 Problem Myalgia M79.1 Active confirmed 68348582 Problem Chronic kidney disease, stage III (moderate) N18.3 Active confirmed 823174777 Problem Type 2 diabetes mellitus with stage 3 chronic kidney disea se E11.22 Active confirmed 68538159 Problem Fatty liver K76.0 Active confirmed 60994705 7 Problem Ileostomy status Z93.2 Active confirmed 302 763759 Problem Encounter for care related to vascular access port Z45.2 Active confirmed 594454086 Problem Complex regional pain syndrome I of left lower limb G90.522 Active confirmed 569030013 Problem Type 2 diabetes mellitus without complications E11 .9 Active confirmed 232784091 Problem 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.4 Active conf irmed 980032810 Problem Hypoglycemia E16.2 Active confirmed 2342326 03 Problem Myalgia, other site M79.18 Active confirmed 13329112 Problem Allergic rhinitis, unspecified seasonality, unspecifie d trigger J30.9 Active confirmed 64071019 Problem Constipation, unspecified constipation type K59.00 Active confirmed 28233332 Problem Pseudogout M11.20 Active confirmed 715465695 Problem Flexural eczema L20.82 Active confirmed 5709 2005 Problem Cervicalgia M54.2 Active confirmed 62413304 Problem Other chronic pain G89.29 Active confirmed 8 6307047 Problem Grief F43.20 Active confirmed 696815019 Problem Type 2 diabetes mellitus with hyperglycemia E11.65 Active confirmed 41910976 Problem Disorders of magnesium metabolism, unspecified E83 .40 Active confirmed 22204683 Problem Spinal cord stimulator status Z96.89 Active confirm ed 721875808 Problem Rosacea L71.9 Active confirmed 742648520 Problem Vaginal atrophy N95.2 Active confirmed 2971 42645 Problem Incisional hernia with obstruction but no gangrene K43.0 Active confirmed 584561665 Problem Falls frequently R29.6 Active confirmed 279 998307 ALLERGIES Allergen (clinical drug ingredient) Drug/Non Drug Allergy do cumented on EMR Reaction Allergy Type Onset Date Status morphine Morphine Sulfate(ND Code:[address]-33) severe h/a with big dose Drug Allergy Active codeine Codeine Sulfate(NDC Code:[address]-97) out of b vito experience Drug Allergy Active ketorolac Ketorolac Tromethamine(NDC Code:[address]-70) vomitin g Drug Allergy Active Gastrografin(NDC Code:[address]-44) Onl y 1 bottle per test day (can not tolerate any more than 1 bottle) Drug Allergy Active Penicillin (For Allergies Use Only) Hives Drug Allerg y Active tiagabine Gabitril(NDC Code:[address]-66) nervous Drug Allergy Active Baclofen affected nervous syt Drug Allergy Ac tive Vicodin Confusion Drug Allergy Active Phenothiazines Phenothiazines nervous system Drug Allergy Active red food dye rash Non Drug Allergy Active promethazine Promethazine HCl(NDC Code:[address]-55) out of body experience Drug Allergy Active Readi-Cat Hives Drug Allergy Active lorazepam Ativan(NDC Code:[address]-80) hallucinations Drug Allergy Active tizanidine Tizanidine HCl(NDC Code:[address]-31) Hives Drug All ergy Active droperidol Droperidol(NDC Code:[address]-02) out of body Drug Allerg y Active Latex Latex difficulty Drug Allergy Active iodine(NDC Code:94206-65264) nerves, tight muscles Drug Al lergy Active pregabalin Lyrica shakes, everything is black Drug Allergy Active nitrofurantoin, macrocrystals / nitrofurantoin, monohy drate Macrobid(NDC Code:[address]-26) Hives, blurred vision Drug Allergy Active azithromycin Azithromycin(NDC Code:[address]-41) hives Drug All ergy Active Sulfasalazine Sulfa Antibiotics Hives Drug Allergy Ac tive Oxycodone vomiting,hives Drug Allergy Active meperidine Meperidine HCl(NDC Code:[address]-20) out of dena dy experience Drug Allergy Active quinolones- cipro,tequin Hives Non Drug Allergy Active lidoderm (licocanine) heart races Non Drug Allergy Active gabapentin Gabapentin([facility] Code:[address]-47) nervous syste m,shakey Drug Allergy Active fentanyl Fentanyl(ND Code:[address]-85) nervous Drug Allergy Active tramadol Tramadol(ND Code:[address]-45) shakes Drug Allergy Active albuterol Albuterol Sulfate(ND Code:[address]-66) cough Drug Allergy Active aspirin Aspirin(ND Code:[address]-11) Hives Drug Allergy Active ENCOUNTERS from 1960 to 2021-02-08 Encounter Location Date Provider Diagnosis [facility] Resident [address] [phone] [place] [address] Jan, Reny Gonzalez IMMUNIZATIONS Vaccine Route Administration Date Status Toradol 60mg/2mL Ketorolac IM Intramuscular Feb 20, 2017 Admi nistered Toradol 60mg/2mL Ketorolac IM Intramuscular Feb 21, 2017 Admi nistered Toradol 60mg/2mL Ketorolac IM Intramuscular Feb 24, 2017 Admi nistered Toradol 60mg/2mL Ketorolac IM Intramuscular July 14, 2017 Admi nistered Toradol 60mg/2mL Ketorolac IM Intramuscular Feb 05, 2017 Admi nistered Toradol 60mg/2mL Ketorolac IM Intramuscular Feb 06, 2017 Admi nistered Toradol 60mg/2mL Ketorolac IM Intramuscular Feb 18, 2017 Admi nistered Toradol 60mg/2mL Ketorolac IM Intramuscular Feb 19, 2017 Admi nistered Influenza 6mo & up [...] IM Intramuscular Mar 15, 2011 Admi nistered Rocephin 1gm Ceftriaxone IM Intramuscular Dec 15, 2015 Admini stered Rocephin 1gm Ceftriaxone IM Intramuscular Dec 19, 2015 Admini stered Rocephin 1gm Ceftriaxone IM Intramuscular Dec 20, 2015 Admini stered Hepatitis A & B 1mL Twinrix IM Intramuscular Apr 15, 2012 Adm inistered Rocephin 1gm Ceftriaxone IM Intramuscular May 19, 2017 Admini stered Pneumococcal Adult 0.5mL Pneumovax 23 IM Intramuscular Feb 22 013 Administered Rocephin 1gm Ceftriaxone IM Intramuscular May 20, 2017 Admini stered Toradol 60mg/2mL Ketorolac IM Intramuscular Apr 22, 2016 Admi nistered Rocephin 1gm Ceftriaxone IM Intramuscular May 21, 2017 Admini stered Toradol 60mg/2mL Ketorolac IM Intramuscular Apr 26, 2016 Admi nistered Rocephin 1gm Ceftriaxone IM Intramuscular Dec 21, 2015 Admini stered Pneumococcal Adult 0.5mL Pneumovax 23 Unknown Jan 26 16 Administered Rocephin 1gm Ceftriaxone IM Intramuscular Dec 22, 2015 Admini stered Hepatitis A & B 1mL Twinrix IM Intramuscular October 02, 2011 Adm inistered Rocephin 1gm Ceftriaxone IM Intramuscular Apr 26, 2016 Admini stered Hepatitis A & B 1mL Twinrix IM Intramuscular Feb 11, 2012 Adm inistered Rocephin 1gm Ceftriaxone IM Intramuscular May 23, 2017 Admini stered Toradol 60mg/2mL Ketorolac IM Intramuscular May 01, 2016 Admi nistered Toradol 60mg/2mL Ketorolac IM Intramuscular May 03, 2016 Admi nistered Toradol 60mg/2mL Ketorolac IM Intramuscular May 07, 2016 Admi nistered Rocephin 1gm Ceftriaxone IM Intramuscular May 22, 2017 Admini stered Toradol 60mg/2mL Ketorolac IM Intramuscular July 21, [...] IM Intramuscular Dec 23, 2016 Admi nistered Influenza 6mo & up Fluzone IM Intramuscular Feb 03, 2017 Admi nistered Toradol 60mg/2mL Ketorolac IM Intramuscular August 27, 2017 Admi nistered Pneumococcal Adult 0.5mL Pneumovax 23 IM Intramuscular September 25, 2018 Administered Toradol 60mg/2mL Ketorolac IM Intramuscular September 03, [...] Education Language: Question Answer Notes Languages spoken: Danish Sikhism: Question Answer Notes Sikhism 15 [employer] Sexual Hx: Question Answer Notes [...] Start Da te End Date Status August Flakita Bags (19757) ICD:v55.3 change as needed (Payton cao) for [...] day x 10 da ys Active Nystatin 796765 UNIT/GM 1 application Externally Twice a day [...] for 5 days Jan, Active Nystatin Powder 301943 UNIT/GM apply Externally four t imes a day under the left breast for 14 day(s) Oct, Active Ammonium Lactate 12 % 1 application Externally Twice a day to feet fo r 30 Active Medipore H Surgical 4"x10yd - as directed May, Active Saline Nasal [place] 0.65 % 1-2 sprays right nostril Sudeep ally 2-3 times a day for 7 day(s) Sep, Active Zofran 4 MG/2ML 4 mg Injection TID at least 6h apart for 30 Days Nov, Active Syringe 2-3 ML 3 ML dx: r11.0 intramuscularly tid prn for 30 Day s Feb, Active Cephalexin 500 MG 1 capsule Orally Four times a day Not-Taking May have flakita wafers flating flanges ICD: v55.3 ( 79791 2 1/2 change as needed (Tatianna) Active Victoza 18 MG/3ML 1.8mg Subcutaneous Daily Mar, Active Nystatin 565692 UNIT/GM APPLY TO AFFECTED AREA(S) AR OUND STOMA 2 TIMES A DAY DIRECTED UNTIL HEALED Externally Twice a day for 14 days Not-Taking Hydrocodone-Chlorpheniramine 5ml orally q12h prn for 11 days Jan, Not-Taking Glucometer testing 4 times a day and as needed Dx: E11/65 for 30 days Medicaid #: [id number] Jun, Active Cephalexin 500 MG 1 capsule [...] of 8 mg please. Nov, Not-Taking Nystatin 700151 UNIT/GM 1 application Externally Four times a [...] as needed for 30 Days Medicaid #: [id number] Jun, Active Neosporin Pain Relieving [place] 1 topical twice for 7 days Oct, Not-Taking Levemir Flex Touch 100 UNIT/ML 50 units Subcutaneous in the morning for 30 Active OneTouch Delica Plus [id number] - USE 1 LANCET FOUR TIMES A D AY NEEDED for 50 Active Dicyclomine HCl 10 MG TAKE ONE CAPSULE BY MOUTH FOUR TIMES A DAY for 30 Active Neosporin LT apply topically twice a day for 7 days Oct Not-Taking Pen [place] 5/16" 31G X 8 MM as directed [...] Information RESULTS No Results REASON FOR VISIT No Information MEDICAL (GENERAL) HISTORY Type Description Date Medical [...] small bowel obstructi on 09/2020 Hospitalization History [facility] - Ventral Hernia 11/2020 Goals Section [...] Name:Tutu Sanchez, 2020-12-0 2 10:30:00 AM, [address] [facility] [address], , [place], [address], Provider Name:Mathew Worthington, 2021-05-17 11:00:00 AM, [address] [facility] [address] [facility], , [place], [address], Insurance Providers Payer Name Payer Address Payer Phone Insured Name Patient Relati onship to Insured Coverage Start Date Coverage End Date [facility] [address] [facility] [id number] GLENN JACOBSON
--- OUTSIDE RECORDS SUMMARY | 2021-03-23 18:54 | CCD ---
Author Author [facility] Organization [facility] Address Unknown Phone Unavailable Care Team Providers [employer] Developer Name Role Phone Tutu Sanchez Unavailable PROBLEMS Type Condition ICD9-CM Code SLA30-BT Code Onset Dates Condition S tatus W/U Status Risk SNOMED Code Notes Problem Complicated headache syndromes G44.59 Active confir med 458644485 Problem Chronic maxillary sinusitis J32.0 Active confirmed 83545389 Problem Unspecified asthma J45.909 Active confirmed 316270682 Problem Chronic pain associated with significant psychos ocial dysfunction G89.4 Active confirmed 539493143 Problem Chronic nausea R11.0 Active confirmed 28408 7007 Problem Left lower quadrant pain R10.32 Active confirmed 575530165 Problem History of abdominal surgery Z98.890 Active confirm ed 343010699 Problem 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 Active confirm ed 22177575 Problem Internal hemorrhoids without mention of complication K64.8 Active confirmed 36401787 Problem Mixed hyperlipidemia E78.2 Active confirmed 956766625 Problem Viral warts, unspecified B07.9 Active confirmed 52447649 Problem Breast calcification seen on mammogram R92.1 A ctive confirmed 980482040 Problem Pelvic muscle wasting N81.84 Active confirmed 20859444 Problem Hypomagnesemia E83.42 Active confirmed 56836 5004 Problem Anemia, chronic disease D63.8 Active confirmed 628404551 Problem Dysfunction of eustachian tube, bilateral H69.83 Active confirmed 55817797 Problem Esophageal reflux K21.9 Active confirmed 23 0186114 Problem DM w/o complication type II E11.9 Active confirmed 261182892 Problem Low back pain M54.5 Active confirmed 618620 009 Problem DM w/o complication type II, uncontrolled E11.65 Active confirmed 41378997 Problem Occipital neuralgia M54.81 Active confirmed 77834971 Problem [facility] (current) use of insulin Z79.4 Activ e confirmed 951762175 Problem Chronic prescription opiate use Z79.899 Active confirmed 656282138 Problem Granulomatous disorder of the skin and s ubcutaneous tissue, unspecified L92.9 Active confirmed 109280924 Problem Multiple drug allergies Z88.9 Active confirmed 205202814 Problem Port catheter in place Z95.828 Active confirmed 208679595 Problem Myalgia M79.1 Active confirmed 42345572 Problem Chronic kidney disease, stage III (moderate) N18.3 Active confirmed 096307637 Problem Type 2 diabetes mellitus with stage 3 chronic kidney disea se E11.22 Active confirmed 92640234 Problem Fatty liver K76.0 Active confirmed 55319223 7 Problem Ileostomy status Z93.2 Active confirmed 302 945996 Problem Encounter for care related to vascular access port Z45.2 Active confirmed 116417163 Problem Complex regional pain syndrome I of left lower limb G90.522 Active confirmed 172117369 Problem Type 2 diabetes mellitus without complications E11 .9 Active confirmed 152782099 Problem roasterman current use of insulin Z79.4 Active conf irmed 476277974 Problem Hypoglycemia E16.2 Active confirmed 1040338 03 Problem Myalgia, other site M79.18 Active confirmed 12555137 Problem Allergic rhinitis, unspecified seasonality, unspecifie d trigger J30.9 Active confirmed 92694632 Problem Constipation, unspecified constipation type K59.00 Active confirmed 49319528 Problem Pseudogout M11.20 Active confirmed 383667564 Problem Flexural eczema L20.82 Active confirmed 5709 2006 Problem Cervicalgia M54.2 Active confirmed 18035178 Problem Other chronic pain G89.29 Active confirmed 8 0622601 Problem Grief F43.20 Active confirmed 000734660 Problem Type 2 diabetes mellitus with hyperglycemia E11.65 Active confirmed 24733535 Problem Disorders of magnesium metabolism, unspecified E83 .40 Active confirmed 93389231 Problem Spinal cord stimulator status Z96.89 Active confirm ed 868310604 Problem Rosacea L71.9 Active confirmed 116511299 Problem Vaginal atrophy N95.2 Active confirmed 2971 99755 Problem Incisional hernia with obstruction but no gangrene K43.0 Active confirmed 059455411 Problem Falls frequently R29.6 Active confirmed 279 233797 ALLERGIES Allergen (clinical drug ingredient) Drug/Non Drug Allergy do cumented on EMR Reaction Allergy Type Onset Date Status morphine Morphine Sulfate(ND Code:[address]-27) severe h/a with big dose Drug Allergy Active codeine Codeine Sulfate(NDC Code:[address]-67) out of b vito experience Drug Allergy Active ketorolac Ketorolac Tromethamine(NDC Code:[address]-24) vomitin g Drug Allergy Active Gastrografin(NDC Code:[address]-92) Onl y 1 bottle per test day (can not tolerate any more than 1 bottle) Drug Allergy Active Penicillin (For Allergies Use Only) Hives Drug Allerg y Active tiagabine Gabitril(NDC Code:[address]-73) nervous Drug Allergy Active Baclofen affected nervous syt Drug Allergy Ac tive Vicodin Confusion Drug Allergy Active Phenothiazines Phenothiazines nervous system Drug Allergy Active red food dye rash Non Drug Allergy Active promethazine Promethazine HCl(NDC Code:[address]-20) out of body experience Drug Allergy Active Readi-Cat Hives Drug Allergy Active lorazepam Ativan(NDC Code:[address]-12) hallucinations Drug Allergy Active tizanidine Tizanidine HCl(NDC Code:[address]-92) Hives Drug All ergy Active droperidol Droperidol(NDC Code:[address]-01) out of body Drug Allerg y Active Latex Latex difficulty Drug Allergy Active iodine(NDC Code:01659-05095) nerves, tight muscles Drug Al lergy Active pregabalin Lyrica shakes, everything is black Drug Allergy Active nitrofurantoin, macrocrystals / nitrofurantoin, monohy drate Macrobid(NDC Code:[address]-19) Hives, blurred vision Drug Allergy Active azithromycin Azithromycin(NDC Code:[address]-83) hives Drug All ergy Active Sulfasalazine Sulfa Antibiotics Hives Drug Allergy Ac tive Oxycodone vomiting,hives Drug Allergy Active meperidine Meperidine HCl(NDC Code:[address]-31) out of dena dy experience Drug Allergy Active quinolones- cipro,tequin Hives Non Drug Allergy Active lidoderm (licocanine) heart races Non Drug Allergy Active gabapentin Gabapentin([facility] Code:[address]-23) nervous syste m,shakey Drug Allergy Active fentanyl Fentanyl(ND Code:[address]-44) nervous Drug Allergy Active tramadol Tramadol(ND Code:[address]-98) shakes Drug Allergy Active albuterol Albuterol Sulfate([facility] Code:[address]-71) cough Drug Allergy Active aspirin Aspirin(ND Code:[address]-97) Hives Drug Allergy Active ENCOUNTERS from 1960 to 2021-02-01 Encounter Location Date Provider Diagnosis [place] [address] [facility] [phone] [place] [address] Jan, Tutu Sanchez IMMUNIZATIONS Vaccine Route Administration Date Status Toradol 60mg/2mL Ketorolac IM Intramuscular Feb 03, 2017 Admi nistered Toradol 60mg/2mL Ketorolac IM Intramuscular Feb 04, 2017 Admi nistered Toradol 60mg/2mL Ketorolac IM Intramuscular Feb 05, 2017 Admi nistered Toradol 60mg/2mL Ketorolac IM Intramuscular Feb 06, 2017 Admi nistered Rocephin 1gm Ceftriaxone IM Intramuscular Dec 20, 2015 Admini stered Rocephin 1gm Ceftriaxone IM Intramuscular Dec 21, 2015 Admini stered Rocephin 1gm Ceftriaxone IM Intramuscular Dec 22, 2015 Admini stered Rocephin 1gm Ceftriaxone IM Intramuscular Apr 26, 2016 Admini stered Influenza 6mo & up Fluzone [...] IM Intramuscular Feb 20, 2017 Admi nistered Pneumococcal Adult 0.5mL Pneumovax 23 IM Intramuscular September 25, 2018 Administered Rocephin 1gm Ceftriaxone IM Intramuscular May 20, 2017 Admini stered Hepatitis A & B 1mL Twinrix IM Intramuscular October 02, 2011 Adm inistered Rocephin 1gm Ceftriaxone IM Intramuscular May 21, 2017 Admini stered Hepatitis A & B 1mL Twinrix IM Intramuscular Feb 11, 2012 Adm inistered Rocephin 1gm Ceftriaxone IM Intramuscular May 22, 2017 Admini stered Hepatitis A & B 1mL Twinrix IM Intramuscular Apr 15, 2012 Adm inistered Toradol 60mg/2mL Ketorolac IM Intramuscular Feb 21, 2017 Admi nistered TDAP Unknown September 13, 2009 Administered Toradol 60mg/2mL Ketorolac IM Intramuscular Feb 24, 2017 Admi nistered Pneumococcal Adult 0.5mL Pneumovax 23 IM Intramuscular Feb 22 013 Administered Rocephin 1gm Ceftriaxone IM Intramuscular May 23, 2017 Admini stered Pneumococcal Adult 0.5mL Pneumovax 23 Unknown Jan 26 16 Administered Rocephin 1gm Ceftriaxone IM Intramuscular May 19, 2017 Admini stered Toradol 60mg/2mL Ketorolac IM Intramuscular Apr 22, 2016 Admi nistered Toradol 60mg/2mL Ketorolac IM Intramuscular Apr 26, [...] IM Intramuscular Jan 31, 2017 Admi nistered Rocephin 1gm Ceftriaxone IM Intramuscular Dec 15, 2015 Admini stered Rocephin 1gm Ceftriaxone IM Intramuscular Dec 19, 2015 Admini stered Toradol 60mg/2mL Ketorolac IM Intramuscular July 30, [...] Language: Question Answer Notes Languages spoken: Lithuanian Confucianism: Question Answer Notes Confucianism 15 [employer] [...] Notes Start Da te End Date Status Sodium Chloride 0.9 % one application inside the R nostril every 2 hrs prn for 7 day(s) Mar, Active Cephalexin 500 MG 1 capsule Orally every 6 hrs for 7 days August, Active Sucralfate 1 GM TAKE ONE TABLET BY MOUTH TWICE A DAY WITH MEALS for 3 0 Active Benzonatate 100 MG 1 capsule as needed Orally Three times a day for 10 days Dec, Not-Taking Nystatin 245721 UNIT/GM 1 application Externally Twice a day for 15 Active Ondansetron HCl 4 MG/2ML INJECT 1 VIAL [4MG] TWO TIME S A DAY AT LEAST 8 HOURS APART DIRECTED for 30 Active Albuterol Sulfate HFA 108 (90 Base) MCG/ACT INHALE TWO PUFFS BY MOUTH EVERY 4 HOURS NEEDED for 30 Active Tessalon Perles 100 MG 1 capsule as needed Orally T hree times a day for 10 day(s) Dec, Not-Taking Mesalamine 1000 MG 1 suppository at bedtime Rectal Once a day fo r 30 day(s) Mar, Active Nystatin 274394 UNIT/GM 1 application Externally Four times a da y for 30 days Oct, Active Hospital bed use daily as directed dx: K9 1.2, G89.4, G90.522, N81.84 for 99 days May, Active Dicyclomine HCl 10 MG TAKE ONE CAPSULE BY MOUTH FOUR TIMES A DAY for 30 Active Triamcinolone Acetonide 0.1 % APPLY SMALL AMOUNT AFFEC YURI AREA(S) TWO TIMES A DAY NEEDED for 14 Active Cavilon spray Apply a uniform coating of f ilm over the ostomy region topically Daily and as needed Dx: Z93.2 for 28 day(s) Oct, Active Senna 8.6 MG 2 tablets at bedtime as needed Orally Once a day x 10 da ys Active Pen [place] 5/16" 31G X 8 MM as directed subcutaneousl y BID dx: E11.65 for 90 day(s) Jul, Active Nebulizer Compressor 1 inh dx: J45.909 every 4 hours as needed f or 90 day(s) August, Active Alcohol Prep Pad 70 % as directed E11.9 test blood sugar QID PRN for 50 Active Ciclopirox 8 % 1 application to the l 5th f ingernail Externally Once a day, clean off with an alcohol prep pad once a week for 90 day(s) Mar, Active Lactulose 20 GM/30ML 10 ml Orally four times a day for 30 Days Active Ammonium Lactate 12 % 1 application Externally Twice a day to feet fo r 30 Active HYDROmorphone HCl 2 MG 2 tablet as needed Orally ev isaura 6 hrs MDD:4 for 14 day(s) Nov, Not-Taking Test Strips - - Dx: E11.65 four times daily as needed for 30 Days Medicaid #: [id number] Jun, Active August Flakita Bags (93244) ICD:v55.3 change as needed ([place] cao) for 30 day(s) Active Nebulizer/Tubing/Mouthpiece - as directed dx: J45.909 every 4 hours as needed for 90 day(s) August, Active Hydrocodone-Chlorpheniramine 5ml orally q12h prn for 11 days Jan, Active OneTouch Delica Plus [id number] - USE 1 LANCET FOUR TIMES A D AY NEEDED for 50 Active HYDROmorphone HCl 2 MG 2 tablet as needed Orally every 6 hrs for 7 days Nov, Not-Taking Ipratropium-Albuterol 0.5-2.5 (3) MG/3ML 3 ml Inhalati on every 6 hrs PRN for 30 days Dec, Active Levemir Flex Touch 100 UNIT/ML 50 units Subcutaneous in the morning for 30 Active Medipore H Surgical 4"x10yd - as directed externally prn dx: z93.2 for 30 Days Oct, Active Mupirocin 2 % 1 application Externally Three times a day for 14 Active Amitriptyline HCl 50 MG as directed Orally 1 tab in am and 3 tabs at bedtime for 30 Days Active Zofran 4 MG/2ML 4 mg Injection TID at least 6h apart for 30 Days Nov, Active Syringe 2-3 ML 3 ML dx: r11.0 intramuscularly tid prn for 30 Day s Feb, Active May have flakita wafers flating flanges ICD: v55.3 ( 60325 2 1/2 change as needed (Tatianna) Active Saline Nasal [place] 0.65 % 1-2 sprays right nostril Sudeep ally 2-3 times a day for 7 day(s) Sep, Active DuoDERM CGF Dressing - 1 packet Externally Daily for 14 day(s) Oct, Active Glucometer testing 4 times a day and as needed Dx: E11/65 for 30 days Medicaid #: [id number] Jun, Active Baby Wipes 1 as directed topically prn dx:569.62 for 7 day(s) Active Medipore H Surgical 4"x10yd - as directed May, Active Pedialyte - 360ml Orally TID for 30 Days Jul, Not-Taking Neosporin Pain Relieving [place] 1 topical twice for 7 days Oct, Not-Taking Mupirocin 2 % apply a small amount to righ t nostril with q-tip Externally twice a day for 7 days Sep, Active Victoza 18 MG/3ML 1.8mg Subcutaneous Daily Mar, Active BD Pen Needle Short U/F 31G X 8 MM USE 1 NEEDLE UNDER THE SKIN ONCE A DAY for 30 Active Neosporin LT apply topically twice a day for 7 days Oct Not-Taking HYDROmorphone HCl 2 MG 2 tablets as needed Orally every 6 hr s for 7 days MDD of 8 mg please. Nov, Not-Taking Pedialyte bottle 330 ml Orally three times daily for 30 days Active Metoclopramide HCl 10 MG 1 tablet before meals and be dtime Orally three times daily before meals for 30 days Jun, A ctive Mupirocin 2 % 1 application to the left in dex finger Externally Three times a day for 10 day(s) Oct, Active Estradiol 0.1 MG/GM _insert ONE GRAM VAGINALLY EVERY DAY for 30 Active Nystatin 285678 UNIT/GM APPLY TO AFFECTED AREA(S) AR OUND STOMA 2 TIMES A DAY DIRECTED UNTIL HEALED Externally Twice a day for 14 days Active Aquaphor - apply to the perineal area a s needed Externally qid and as needed for 14 day(s) Jul, Active Cephalexin 500 MG 1 capsule Orally Four times a day Not-Taking Nystatin Powder 213095 UNIT/GM apply Externally four t imes a day under the left breast for 14 day(s) Oct, Active Simethicone 80 MG 2 tablets after meals and at bedtime as needed Orally three times a day as needed for abdominal pain and distention for 30 Active Mometasone Furoate 50 MCG/ACT SPRAY TWO SPRAYS IN EACH NOSTR [place] EVERY DAY for 30 Active PROCEDURES No Information RESULTS No Results REASON FOR VISIT kidney infection MEDICAL (GENERAL) HISTORY Type Description Date Medical [...] small bowel obstructi on 09/2020 Hospitalization History [facility] 11/2020 Goals Section No Information Health Concerns No Information MEDICAL EQUIPMENT No Information MENTAL STATUS No Information FUNCTIONAL STATUS No Information ASSESSMENTS No Information PLAN OF TREATMENT Medication Medication Name Sig Start Date Stop Date BD Pen Needle Short U/F 31G X 8 MM USE 1 NEEDLE UNDER THE SKIN ONCE A DAY for 30 Mometasone Furoate 50 MCG/ACT SPRAY TWO SPRAYS IN EACH NOSTR [place] EVERY DAY for 30 Albuterol Sulfate HFA 108 (90 Base) MCG/ACT INHALE TWO PUFFS BY MOUTH EVERY 4 HOURS NEEDED for 30 Sucralfate 1 GM TAKE ONE TABLET BY MOUTH TWICE A DAY WITH MEALS for 30 Simethicone 80 MG 2 tablets after meals and at bedtime as needed Orally three times a day as needed for abdominal pain and distention for 30 Hydrocodone-Chlorpheniramine 5ml orally q12h prn for 11 days Jan, Next Appt Details Provider Name:Reny Gonzalez, 2021-02-02 0 9:30:00 AM, [address], , [place], [address], Provider Name:Tutu Sanchez, 2 10:30:00 AM, [address] [facility], , [place], [address], Provider Name:Mathew Worthington, 2021-05-17 11:00:00 AM, [address] [facility] [address], , [place], [address], Insurance Providers Payer Name Payer Address Payer Phone Insured Name Patient Relati onship to Insured Coverage Start Date Coverage End Date [facility] [address] [facility] [address] RUBA GRAFF,GLENN COOPER self
--- OUTSIDE RECORDS SUMMARY | 2021-03-23 18:54 | CCD ---
Author Author [facility] Organization [facility] Address Unknown Phone Unavailable Care Team Providers Care Outreach And Education Social Worker Name Role Phone Tutu Sanchez Unavailable PROBLEMS Type Condition ICD9-CM Code [id number] Code Onset Dates Condition S tatus W/U Status Risk SNOMED Code Notes Problem Complicated headache syndromes G44.59 Active confir med 121876950 Problem Chronic maxillary sinusitis J32.0 Active confirmed 52718676 Problem Unspecified asthma J45.909 Active confirmed 623755246 Problem Chronic pain associated with significant psychos ocial dysfunction G89.4 Active confirmed 264618166 Problem Chronic nausea R11.0 Active confirmed 34229 7007 Problem Left lower quadrant pain R10.32 Active confirmed 551536638 Problem History of abdominal surgery Z98.890 Active confirm ed 224303887 Problem 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 Active confirm ed 87643249 Problem Internal hemorrhoids without mention of complication K64.8 Active confirmed 80978262 Problem Mixed hyperlipidemia E78.2 Active confirmed 801877544 Problem Viral warts, unspecified B07.9 Active confirmed 32347356 Problem Breast calcification seen on mammogram R92.1 A ctive confirmed 050163204 Problem Pelvic muscle wasting N81.84 Active confirmed 26856206 Problem Hypomagnesemia E83.42 Active confirmed 70436 5004 Problem Anemia, chronic disease D63.8 Active confirmed 941284324 Problem Dysfunction of eustachian tube, bilateral H69.83 Active confirmed 34728156 Problem Esophageal reflux K21.9 Active confirmed 23 6915265 Problem DM w/o complication type II E11.9 Active confirmed 836452658 Problem Low back pain M54.5 Active confirmed 218780 009 Problem DM w/o complication type II, uncontrolled E11.65 Active confirmed 64405438 Problem Occipital neuralgia M54.81 Active confirmed 15740719 Problem long-term (current) use of insulin Z79.4 Activ e confirmed 339050486 Problem Chronic prescription opiate use Z79.899 Active confirmed 125007888 Problem Granulomatous disorder of the skin and s ubcutaneous tissue, unspecified L92.9 Active confirmed 944828283 Problem Multiple drug allergies Z88.9 Active confirmed 301722939 Problem Port catheter in place Z95.828 Active confirmed 798071619 Problem Myalgia M79.1 Active confirmed 79199109 Problem Chronic kidney disease, stage III (moderate) N18.3 Active confirmed 677241736 Problem Type 2 diabetes mellitus with stage 3 chronic kidney disea se E11.22 Active confirmed 46299094 Problem Fatty liver K76.0 Active confirmed 11741038 7 Problem Ileostomy status Z93.2 Active confirmed 302 651857 Problem Encounter for care related to vascular access port Z45.2 Active confirmed 048410443 Problem Complex regional pain syndrome I of left lower limb G90.522 Active confirmed 374057006 Problem Type 2 diabetes mellitus without complications E11 .9 Active confirmed 613306784 Problem 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 Active conf irmed 115198238 Problem Hypoglycemia E16.2 Active confirmed 6150187 03 Problem Myalgia, other site M79.18 Active confirmed 82200995 Problem Allergic rhinitis, unspecified seasonality, unspecifie d trigger J30.9 Active confirmed 81890506 Problem Constipation, unspecified constipation type K59.00 Active confirmed 66245975 Problem Pseudogout M11.20 Active confirmed 858879067 Problem Flexural eczema L20.82 Active confirmed 5709 2006 Problem Cervicalgia M54.2 Active confirmed 64617776 Problem Other chronic pain G89.29 Active confirmed 8 5942833 Problem Grief F43.20 Active confirmed 571190926 Problem Type 2 diabetes mellitus with hyperglycemia E11.65 Active confirmed 86390662 Problem Disorders of magnesium metabolism, unspecified E83 .40 Active confirmed 33672411 Problem Spinal cord stimulator status Z96.89 Active confirm ed 442358468 Problem Rosacea L71.9 Active confirmed 361823526 Problem Vaginal atrophy N95.2 Active confirmed 2971 75035 Problem Incisional hernia with obstruction but no gangrene K43.0 Active confirmed 326300184 Problem Falls frequently R29.6 Active confirmed 279 380377 ALLERGIES Allergen (clinical drug ingredient) Drug/Non Drug Allergy do cumented on EMR Reaction Allergy Type Onset Date Status morphine Morphine Sulfate(NDC Code:[address]-00) severe h/a with big dose Drug Allergy Active codeine Codeine Sulfate(NDC Code:[address]-11) out of b vito experience Drug Allergy Active ketorolac Ketorolac Tromethamine(NDC Code:[address]-96) vomitin g Drug Allergy Active Gastrografin(NDC Code:[address]-54) Onl y 1 bottle per test day (can not tolerate any more than 1 bottle) Drug Allergy Active Penicillin (For Allergies Use Only) Hives Drug Allerg y Active tiagabine Gabitril(NDC Code:[address]-63) nervous Drug Allergy Active Baclofen affected nervous syt Drug Allergy Ac tive Vicodin Confusion Drug Allergy Active Readi-Cat Hives Drug Allergy Active red food dye rash Non Drug Allergy Active Phenothiazines phenothiazines nervous system Non Drug Allergy Active promethazine Promethazine HCl(NDC Code:[address]-25) out of body experience Drug Allergy Active lorazepam Ativan(NDC Code:[address]-23) hallucinations Drug Allergy Active tizanidine Tizanidine HCl(NDC Code:[address]-88) Hives Drug All ergy Active droperidol Droperidol(NDC Code:[address]-13) out of body Drug Allerg y Active Latex (for allergy use only) difficulty Drug Allergy Active iodine(NDC Code:34610-06395) nerves, tight muscles Drug Al lergy Active pregabalin Lyrica shakes, everything is black Drug Allergy Active nitrofurantoin, macrocrystals / nitrofurantoin, monohy drate Macrobid(NDC Code:[address]-86) Hives, blurred vision Drug Allergy Active azithromycin Azithromycin(NDC Code:[address]-74) hives Drug All ergy Active Sulfasalazine Sulfa Antibiotics Hives Drug Allergy Ac tive Oxycodone vomiting,hives Drug Allergy Active meperidine Meperidine HCl(NDC Code:[address]-54) out of dena dy experience Drug Allergy Active tramadol Tramadol(NDC Code:[address]-20) shakes Drug Allergy Active lidoderm (licocanine) heart races Non Drug Allergy Active gabapentin Gabapentin(NDC Code:[address]-67) nervous syste m,shakey Drug Allergy Active quinolones- cipro,tequin Hives Non Drug Allergy Active fentanyl Fentanyl(NDC Code:[address]-70) nervous Drug Allergy Active albuterol Albuterol Sulfate(NDC Code:[address]-14) cough Drug Allergy Active aspirin Aspirin(NDC Code:[address]-09) Hives Drug Allergy Active ENCOUNTERS from 1960 to 2021-01-27 Encounter Location Date Provider Diagnosis [place] [id number] [facility] [phone] [place] [address] Jan, Tutu Sanchez IMMUNIZATIONS Vaccine Route Administration [...] IM Intramuscular July 23, 2017 Admi nistered Hepatitis A & B 1mL Twinrix IM Intramuscular Feb 11, 2012 Adm inistered Toradol 60mg/2mL Ketorolac IM Intramuscular September 10, 2017 Admi nistered Hepatitis A & B 1mL Twinrix IM Intramuscular Apr 15, 2012 Adm inistered Toradol 60mg/2mL Ketorolac IM Intramuscular September 09, 2017 Admi nistered Pneumococcal Adult 0.5mL Pneumovax 23 IM Intramuscular Feb 22 013 Administered Toradol 60mg/2mL Ketorolac IM Intramuscular September 22, 2017 Admi nistered Toradol 60mg/2mL Ketorolac IM Intramuscular Apr 22, 2016 Admi nistered Toradol 60mg/2mL Ketorolac IM Intramuscular August 27, 2017 Admi nistered TDAP Unknown September 13, 2009 Administered Toradol 60mg/2mL Ketorolac IM Intramuscular September 03, 2017 Admi nistered Pneumococcal Adult 0.5mL Pneumovax 23 Unknown Jan 26 16 Administered Toradol 60mg/2mL Ketorolac IM Intramuscular September 04, 2017 Admi nistered Hepatitis A & B 1mL Twinrix IM Intramuscular October 02, 2011 Adm inistered Toradol 60mg/2mL Ketorolac IM Intramuscular September 05, [...] IM Intramuscular Dec 09, 2016 Admi nistered Rocephin 1gm Ceftriaxone IM Intramuscular Dec 22, 2015 Admini stered Toradol 60mg/2mL Ketorolac IM Intramuscular Dec 12, 2016 Admi nistered Rocephin 1gm Ceftriaxone IM Intramuscular Apr 26, 2016 Admini stered Toradol 60mg/2mL Ketorolac IM Intramuscular Dec 23, 2016 Admi nistered Pneumococcal Adult 0.5mL Pneumovax 23 IM Intramuscular September 25, 2018 Administered Toradol 60mg/2mL Ketorolac IM Intramuscular May 07, 2016 Admi nistered Rocephin 1gm Ceftriaxone IM Intramuscular Dec 15, 2015 Admini stered Toradol 60mg/2mL Ketorolac IM Intramuscular May 28, 2016 Admi nistered Rocephin 1gm Ceftriaxone IM Intramuscular Dec 19, 2015 Admini stered Toradol 60mg/2mL Ketorolac IM Intramuscular July 18, 2016 Admi nistered Rocephin 1gm Ceftriaxone IM Intramuscular Dec 20, 2015 Admini stered Toradol 60mg/2mL Ketorolac IM Intramuscular Dec 27, 2016 Admi nistered Rocephin 1gm Ceftriaxone IM Intramuscular Dec 21, 2015 Admini stered Toradol 60mg/2mL Ketorolac IM Intramuscular Dec 30, 2016 Admi nistered Toradol 60mg/2mL Ketorolac IM Intramuscular Jan 07, 2017 Admi nistered Rocephin 1gm Ceftriaxone IM Intramuscular May 19, 2017 Admini stered Rocephin 1gm Ceftriaxone IM Intramuscular May 20, 2017 Admini stered Rocephin 1gm Ceftriaxone IM Intramuscular May 21, 2017 Admini stered Toradol 60mg/2mL Ketorolac IM Intramuscular Jan 10, 2017 Admi nistered Rocephin 1gm Ceftriaxone IM Intramuscular May 22, 2017 Admini stered Rocephin 1gm Ceftriaxone IM Intramuscular May 23, 2017 Admini stered Toradol 60mg/2mL Ketorolac IM Intramuscular Jan 17, [...] IM Intramuscular July 30, 2019 Admi nistered SOCIAL HISTORY Tobacco Use: Social History Observation Description Date Details (start date - stop date) Never Smoker Sex Assigned At : Social History Observation Description Sex Assigned At Unknown Education: Question Answer Notes Level of Education: Grade School 8th grade Audit Question Answer Notes Total Score: 0 Interpretation: Alcohol Education Language: Question Answer Notes Languages spoken: Belarusian Nondenominational: Question Answer Notes Nondenominational 15 [employer] Sexual Hx: Question Answer Notes [...] 6 hrs for 7 days August, Active Ondansetron HCl 4 MG/2ML INJECT 1 VIAL [4MG] TWO TIME S A DAY AT LEAST 8 HOURS APART DIRECTED for 30 Active Benzonatate 100 MG 1 capsule as needed Orally Three times a day for 10 days Dec, Not-Taking Nystatin 302006 UNIT/GM 1 application Externally Twice a day for 15 Active Zofran 4 MG/2ML 4 mg Injection TID at least 6h apart for 30 Days Nov, Active Hospital bed use daily as directed dx: K9 1.2, G89.4, G90.522, N81.84 for 99 days May, Active Tessalon Perles 100 MG 1 capsule as needed Orally T hree times a day for 10 day(s) Dec, Not-Taking Mesalamine 1000 MG 1 suppository at bedtime Rectal Once a day fo r 30 day(s) Mar, Active DuoDERM CGF Dressing - 1 packet Externally Daily for 14 day(s) Oct, Active Senna 8.6 MG 2 tablets at bedtime as needed Orally Once a day x 10 da ys Active Mometasone Furoate 50 MCG/ACT 2 sprays in each nostril Nasally Once a day for 30 Active Triamcinolone Acetonide 0.1 % APPLY SMALL AMOUNT AFFEC YURI AREA(S) TWO TIMES A DAY NEEDED for 14 Active Medipore H Surgical 4"x10yd - as directed May, Active [address] [address] Bags (57337) ICD:v55.3 change as needed (Payton cao) for 30 day(s) Active Sucralfate 1 GM 1 tablet on an empty stomach orally bid for 30 days Active Nebulizer Compressor 1 inh dx: J45.909 every 4 hours as needed f or 90 day(s) August, Active HYDROmorphone HCl 2 MG 2 tablet as needed Orally ev isaura 6 hrs MDD:4 for 14 day(s) Nov, Not-Taking Ciclopirox 8 % 1 application to the l 5th f ingernail Externally Once a day, clean off with an alcohol prep pad once a week for 90 day(s) Mar, Active Lactulose 20 GM/30ML 10 ml Orally four times a day for 30 Days Active BD Pen Needle Short U/F 31G X 8 MM USE 1 NEEDLE UNDER THE SKIN ONCE A DAY for 30 Active Ammonium Lactate 12 % 1 application Externally Twice a day to feet fo r 30 Active Test Strips - - Dx: E11.65 four times daily as needed for 30 Days Medicaid #: [id number] Jun, Active Hydrocodone-Chlorpheniramine 5ml orally q12h prn for 11 days Jan, Active OneTouch Delica Plus [id number] - USE 1 LANCET FOUR TIMES A D AY NEEDED for 50 Active Dicyclomine HCl 10 MG TAKE ONE CAPSULE BY MOUTH FOUR TIMES A DAY for 30 Active May have jerome wafers flating flanges ICD: v55.3 ( 89915 2 1/2 change as needed (Tatianna) Active HYDROmorphone HCl 2 MG 2 tablet as needed Orally every 6 hrs for 7 days Nov, Not-Taking Ipratropium-Albuterol 0.5-2.5 (3) MG/3ML 3 ml Inhalati on every 6 hrs PRN for 30 days Dec, Active Albuterol Sulfate HFA 108 (90 Base) MCG/ACT 2 puffs as needed Inhalation every 4 hrs prn for 30 Active Syringe 2-3 ML 3 ML dx: r11.0 intramuscularly tid prn for 30 Day s Feb, Active Mupirocin 2 % 1 application Externally Three times a day for 14 Active Amitriptyline HCl 50 MG as directed Orally 1 tab in am and 3 tabs at bedtime for 30 Days Active Nystatin 440965 UNIT/GM 1 application Externally Four times a da y for 30 days Oct, Active Glucometer testing 4 times a day and as needed Dx: E11/65 for 30 days Medicaid #: [id number] Jun, Active Baby Wipes 1 as directed topically prn dx:569.62 for 7 day(s) Active Saline Nasal [place] 0.65 % 1-2 sprays right nostril Sudeep ally 2-3 times a day for 7 day(s) Sep, Active Cavilon spray Apply a uniform coating of f ilm over the ostomy region topically Daily and as needed Dx: Z93.2 for 28 day(s) Oct, Active Nebulizer/Tubing/Mouthpiece - as directed dx: J45.909 every 4 hours as needed for 90 day(s) August, Active Pen [place] 5/16" 31G X 8 MM as directed subcutaneousl y BID dx: E11.65 for 90 day(s) Jul, Active Mupirocin 2 % 1 application to the left in dex finger Externally Three times a day for 10 day(s) Oct, Active Pedialyte - 360ml Orally TID for 30 Days Jul, Not-Taking Neosporin Pain Relieving [place] 1 topical twice for 7 days Oct, Not-Taking Mupirocin 2 % apply a small amount to righ t nostril with q-tip Externally twice a day for 7 days Sep, Active Victoza 18 MG/3ML 1.8mg Subcutaneous Daily Mar, Active Levemir Flex Touch 100 UNIT/ML 50 units Subcutaneous in the morning for 30 Active Neosporin LT apply topically twice a day for 7 days Oct Not-Taking Alcohol Prep Pad 70 % as directed E11.9 test blood sugar QID PRN for 50 Active Metoclopramide HCl 10 MG 1 tablet before meals and be dtime Orally three times daily before meals for 30 days Jun, A ctive HYDROmorphone HCl 2 MG 2 tablets as needed Orally every 6 hr s for 7 days MDD of 8 mg please. Nov, Not-Taking Medipore H Surgical 4"x10yd - as directed externally prn dx: z93.2 for 30 Days Oct, Active Estradiol 0.1 MG/GM _insert ONE GRAM VAGINALLY EVERY DAY for 30 Active Nystatin 869447 UNIT/GM APPLY TO AFFECTED AREA(S) AR OUND STOMA 2 TIMES A DAY DIRECTED UNTIL HEALED Externally Twice a day for 14 days Active Pedialyte bottle 330 ml Orally three times daily for 30 days Active Cephalexin 500 MG 1 capsule Orally Four times a day Not-Taking Nystatin Powder 215044 UNIT/GM apply Externally four t imes a [...] as needed for 14 day(s) Jul, Active PROCEDURES No Information RESULTS No Results REASON FOR VISIT ostomy not working MEDICAL (GENERAL) HISTORY Type Description Date Medical [...] small bowel obstructi on 09/2020 Hospitalization History [facility] 11/2020 Goals Section No Information Health Concerns No Information MEDICAL EQUIPMENT No Information MENTAL STATUS No Information FUNCTIONAL STATUS No Information ASSESSMENTS No Information PLAN OF TREATMENT Medication Medication Name Sig Start Date Stop Date Simethicone 80 MG 2 tablets after meals and at bedtime as needed Orally three times a day as needed for abdominal pain and distention for 30 Hydrocodone-Chlorpheniramine 5ml orally q12h prn for 11 days Jan, Next Appt Details Provider Name:Tutu Sanchez, 2021-01-12 9 08:30:00 AM, [facility] [facility], , [place], [address], Provider Name:Tutu Sanchez, 2 10:30:00 AM, [address] [facility], , [place], [address], Provider Name:Mathew Worthington, 2021-05-17 11:00:00 AM, [address] [facility] [address] [facility], , [place], [address], Insurance Providers Payer Name Payer Address Payer Phone Insured Name Patient Relati onship to Insured Coverage Start Date Coverage End Date [facility] [address] [place] [id number] GLENN JACOBSON
--- OUTSIDE RECORDS SUMMARY | 2021-03-23 18:54 | CCD | Continuity of Care Document ---
Author Rich Schroeder DPM Organization Unknown Address [address] [place] [address], [facility] [address] [place] [address] Phone [phone] Care Team Providers Care Podiatric Technician Name Role Phone Tutu Sanchez M.D. [phone] Problems Active Problems Provider Date Type 2 [...] Area Two Times A Day Unknown Nystatin 142664Wrqe/GM Powder Apply To Affected Area S Around Stoma Two Times A Day as Directed Until Healed Unknown Ipratropium [place]/Albuterol Sulfate 0.5-2.5(3)mg/3ML Solution Use 1 [address] [...] Inject Triamcinolone Acetonide 10 ML, ND C 9266-6761-24 Injection Wali cooper, DP 05/21/2016 Inject Dexamthosone Phosphate 95427-753- 30 Injection Wali Taveras, XENA 017 Inject Triamcinolone Acetonide 10 ML, ND C 4935-2326-69 Injection Wali cooper, DP 03/06/2016 Inject Dexamthosone Phosphate 68075-324- 30 Injection Wali Taveras, XENA 016 Inject Triamcinolone Acetonide 10 ML, ND C 0093-8447-46 Injection Tigre cooper, DP 06/16/2013 Inject Dexamthosone Phosphate 73967-005- 30 Injection Tigre Taveras, XENA 014 Immunizations [...] Information Available Procedures Date Code Description Status 10/06/2020 54974 Office/Outpatient Established [facility] 10-19 Min Completed Medical Devices Description No Information Available Encounters Type Date Location Provider Dx Diagnosis Office Visit 10/06/2020 11:00a [facility] Wali Taveras DPM B35.1 Tinea unguium L84 Corns and callosities E11.42 Type 2 diabetes mellitus wit h diabetic polyneuropathy Assessments Date Code Description Provider 10/06/2020 B35.1 Tinea unguium Wali Taveras DPM 10/06/2020 L84 Corns and callosities Wali Taveras DPM 10/06/2020 E11.42 Type 2 diabetes mellitus with di abetic polyneuropathy Wali Taveras DPM Plan of Treatment Future Appointment(s):* 05/01/2021 10:45 am - Wali Taveras DPM at [facility] Functional Status Description No Information Available Mental Status Description No Information Available Referrals Description No Information Available
--- OUTSIDE RECORDS SUMMARY | 2021-03-23 18:54 | CCD ---
Author Author [facility] Organization [facility] Address Unknown Phone Unavailable Care Team Providers Care Hairspring Studder Name Role Phone Tutu Sanchez Unavailable PROBLEMS Type Condition ICD9-CM Code VNT82-JR Code Onset Dates Condition S tatus W/U Status Risk SNOMED Code Notes Problem Complicated headache syndromes G44.59 Active confir med 705874901 Problem Chronic maxillary sinusitis J32.0 Active confirmed 30543994 Problem Unspecified asthma J45.909 Active confirmed 063200532 Problem Chronic pain associated with significant psychos ocial dysfunction G89.4 Active confirmed 252958325 Problem Chronic nausea R11.0 Active confirmed 98876 7007 Problem Left lower quadrant pain R10.32 Active confirmed 617299081 Problem History of abdominal surgery Z98.890 Active confirm ed 990012041 Problem 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 Active confirm ed 56513633 Problem Internal hemorrhoids without mention of complication K64.8 Active confirmed 27841496 Problem Mixed hyperlipidemia E78.2 Active confirmed 440299690 Problem Viral warts, unspecified B07.9 Active confirmed 35475611 Problem Breast calcification seen on mammogram R92.1 A ctive confirmed 152871869 Problem Pelvic muscle wasting N81.84 Active confirmed 99493359 Problem Hypomagnesemia E83.42 Active confirmed 17678 5004 Problem Anemia, chronic disease D63.8 Active confirmed 554844743 Problem Dysfunction of eustachian tube, bilateral H69.83 Active confirmed 39213260 Problem Esophageal reflux K21.9 Active confirmed 23 3278848 Problem DM w/o complication type II E11.9 Active confirmed 999930755 Problem Low back pain M54.5 Active confirmed 980141 009 Problem DM w/o complication type II, uncontrolled E11.65 Active confirmed 71012324 Problem Occipital neuralgia M54.81 Active confirmed 81315039 Problem shelter (current) use of insulin Z79.4 Activ e confirmed 543581156 Problem Chronic prescription opiate use Z79.899 Active confirmed 559167902 Problem Granulomatous disorder of the skin and s ubcutaneous tissue, unspecified L92.9 Active confirmed 016041479 Problem Multiple drug allergies Z88.9 Active confirmed 894101957 Problem Port catheter in place Z95.828 Active confirmed 554270080 Problem Myalgia M79.1 Active confirmed 16265013 Problem Chronic kidney disease, stage III (moderate) N18.3 Active confirmed 603085147 Problem Type 2 diabetes mellitus with stage 3 chronic kidney disea se E11.22 Active confirmed 13946506 Problem Fatty liver K76.0 Active confirmed 00774702 7 Problem Ileostomy status Z93.2 Active confirmed 302 923584 Problem Encounter for care related to vascular access port Z45.2 Active confirmed 766078951 Problem Complex regional pain syndrome I of left lower limb G90.522 Active confirmed 261348685 Problem Type 2 diabetes mellitus without complications E11 .9 Active confirmed 796697965 Problem ferry terminal agent current use of insulin Z79.4 Active conf irmed 667265105 Problem Hypoglycemia E16.2 Active confirmed 1445093 03 Problem Myalgia, other site M79.18 Active confirmed 66870190 Problem Allergic rhinitis, unspecified seasonality, unspecifie d trigger J30.9 Active confirmed 56572822 Problem Constipation, unspecified constipation type K59.00 Active confirmed 40948600 Problem Pseudogout M11.20 Active confirmed 097064533 Problem Flexural eczema L20.82 Active confirmed 5709 2006 Problem Cervicalgia M54.2 Active confirmed 91035184 Problem Other chronic pain G89.29 Active confirmed 8 0593552 Problem Grief F43.20 Active confirmed 284610246 Problem Type 2 diabetes mellitus with hyperglycemia E11.65 Active confirmed 29677868 Problem Disorders of magnesium metabolism, unspecified E83 .40 Active confirmed 33057707 Problem Spinal cord stimulator status Z96.89 Active confirm ed 312081401 Problem Rosacea L71.9 Active confirmed 700883793 Problem Vaginal atrophy N95.2 Active confirmed 2971 21172 Problem Incisional hernia with obstruction but no gangrene K43.0 Active confirmed 651658159 Problem Falls frequently R29.6 Active confirmed 279 495260 ALLERGIES Allergen (clinical drug ingredient) Drug/Non Drug Allergy do cumented on EMR Reaction Allergy Type Onset Date Status morphine Morphine Sulfate(NDC Code:[address]-15) severe h/a with big dose Drug Allergy Active codeine Codeine Sulfate(NDC Code:[address]-18) out of b vito experience Drug Allergy Active ketorolac Ketorolac Tromethamine(NDC Code:[address]-43) vomitin g Drug Allergy Active Gastrografin(NDC Code:[address]-35) Onl y 1 bottle per test day (can not tolerate any more than 1 bottle) Drug Allergy Active Penicillin (For Allergies Use Only) Hives Drug Allerg y Active tiagabine Gabitril(NDC Code:[address]-39) nervous Drug Allergy Active Baclofen affected nervous syt Drug Allergy Ac tive Vicodin Confusion Drug Allergy Active Readi-Cat Hives Drug Allergy Active red food dye rash Non Drug Allergy Active Phenothiazines phenothiazines nervous system Non Drug Allergy Active promethazine Promethazine HCl(NDC Code:[address]-82) out of body experience Drug Allergy Active lorazepam Ativan(NDC Code:[address]-94) hallucinations Drug Allergy Active tizanidine Tizanidine HCl(NDC Code:[address]-84) Hives Drug All ergy Active droperidol Droperidol(NDC Code:[address]-39) out of body Drug Allerg y Active Latex Latex difficulty Drug Allergy Active iodine(NDC Code:74426-19434) nerves, tight muscles Drug Al lergy Active pregabalin Lyrica shakes, everything is black Drug Allergy Active nitrofurantoin, macrocrystals / nitrofurantoin, monohy drate Macrobid(NDC Code:[address]-74) Hives, blurred vision Drug Allergy Active azithromycin Azithromycin(NDC Code:[address]-03) hives Drug All ergy Active Sulfasalazine Sulfa Antibiotics Hives Drug Allergy Ac tive Oxycodone vomiting,hives Drug Allergy Active meperidine Meperidine HCl(NDC Code:[address]-80) out of dena dy experience Drug Allergy Active tramadol Tramadol(NDC Code:[address]-71) shakes Drug Allergy Active lidoderm (licocanine) heart races Non Drug Allergy Active gabapentin Gabapentin(ND Code:[address]-22) nervous syste m,shakey Drug Allergy Active quinolones- cipro,tequin Hives Non Drug Allergy Active fentanyl Fentanyl(ND Code:[address]-25) nervous Drug Allergy Active albuterol Albuterol Sulfate(NDC Code:[address]-48) cough Drug Allergy Active aspirin Aspirin(ND Code:[address]-63) Hives Drug Allergy Active ENCOUNTERS from 1960 to 2021-01-30 Encounter Location Date Provider Diagnosis [address] [phone] [place] [address] Jan, Tutu Norman Ileostomy status Z93.2 ; Rem oval of staple Z48.02 ; Subacute cough R05.2 ; Candidal dermatitis B37.2 and Debility R53.81 IMMUNIZATIONS Vaccine Route Administration Date Status Toradol [...] 2018 Administered Rocephin 1gm Ceftriaxone IM Intramuscular Dec 15, 2015 Admini stered Rocephin 1gm Ceftriaxone IM Intramuscular Dec 19, 2015 Admini stered Toradol 60mg/2mL Ketorolac IM Intramuscular Jan 08, 2017 Admi nistered Influenza 18 yrs & older Flublok IM Intramuscular Jan 23, 2018 Administered Toradol 60mg/2mL Ketorolac IM Intramuscular Jan 13, 2017 Admi nistered Toradol 60mg/2mL Ketorolac IM Intramuscular September 25, 2018 Admi nistered Toradol 60mg/2mL Ketorolac IM Intramuscular Jan 17, 2017 Admi nistered Toradol 60mg/2mL Ketorolac IM Intramuscular October 05, 2018 Admi nistered Toradol 60mg/2mL Ketorolac IM Intramuscular Jan 20, 2017 Admi nistered Toradol 60mg/2mL Ketorolac IM Intramuscular October 01, 2018 Admi nistered Rocephin 1gm Ceftriaxone IM Intramuscular [...] Education Language: Question Answer Notes Languages spoken: Samoan Scientologist: 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 I wasn't convinced it was the best thing for her at that time. In the last month or so she has had two abdominal surgeries at [facility] and is now weaker than ever. Her father is more frail now. I think that a motorized mobility device is now needed. Please reevaluate and update your previous letter/assessment. VITAL SIGNS Weight 155.2 lbs Jan, Weight-kg 70.4 kg Jan, Height 67 in Jan, BMI 24.31 kg/m2 Jan, Heart Rate 97 /min Jan, Respiratory Rate 18 /min Jan, Temperature 97.7 degrees Fahrenheit Jan, Oximetry 98 Jan, Blood pressure systolic 116 mm Hg Jan, Blood pressure diastolic 72 mm Hg Jan, MEDICATIONS Medication SIG (Take, [...] day for 10 days Dec, Not-Taking Nystatin 460861 UNIT/GM 1 application Externally Twice a day [...] fo r 30 day(s) Mar, Active Nystatin 770702 UNIT/GM 1 application Externally Four times a [...] day x 10 da ys Active Pen Bentley 5/16" 31G X 8 MM as directed [...] as needed for 30 Days Medicaid #: [id number] Jun, Active August Jerome Bags ([id number]) ICD:v55.3 change as needed (Payton cao) for 30 day(s) Active Nebulizer/Tubing/Mouthpiece - as directed dx: J45.909 every 4 hours as needed for 90 day(s) August, Active Hydrocodone-Chlorpheniramine 5ml orally q12h prn for 11 days Jan, Active OneTouch Delica Plus [id number] - USE 1 LANCET FOUR TIMES A [...] 30 Day s Feb, Active May have jerome wafers flating flanges ICD: v55.3 ( 23569 2 1/2 change as needed (Tatianna) Active Saline Nasal [place] 0.65 % 1-2 sprays right nostril Sudeep ally 2-3 times a day for 7 day(s) Sep, Active DuoDERM CGF Dressing - 1 packet Externally Daily for 14 day(s) Oct, Active Glucometer testing 4 times a day and as needed Dx: E1165 for 30 days Medicaid #: [id number] Jun, Active Baby Wipes 1 as directed topically prn dx:569.62 for 7 day(s) Active Medipore H Surgical 4"x10yd - as directed May, Active Pedialyte - 360ml Orally TID for 30 Days Jul, Not-Taking Neosporin Pain Relieving [place] 1 topical twice for 7 days Oct, [...] VAGINALLY EVERY DAY for 30 Active Nystatin 173557 UNIT/GM APPLY TO AFFECTED AREA(S) AR OUND STOMA 2 TIMES A DAY DIRECTED UNTIL HEALED Externally Twice a day for 14 days Active Aquaphor - apply to the perineal area a s needed Externally qid and as needed for 14 day(s) Jul, Active Cephalexin 500 MG 1 capsule Orally Four times a day Not-Taking Nystatin Powder 488090 UNIT/GM apply Externally four t imes a [...] Information RESULTS No Results REASON FOR VISIT s/r MEDICAL (GENERAL) HISTORY Type Description Date Medical [...] - small bowel obstruction 9 Hospitalization History [facility]- short gut syndrome 06/29/19 Hospitalization History [facility] - ilius vs small bowel obstructi on 09/2020 Hospitalization History [facility] - Ventral Hernia 11/2020 Goals Section No Information Health Concerns No Information MEDICAL EQUIPMENT No Information MENTAL STATUS No Information FUNCTIONAL STATUS No Information ASSESSMENTS Encounter Date Diagnosis Assessment Notes Treatment Notes Treatm ent Clinical Notes Jan, Ileostomy status (ICD-10 - Z93.2) Her ostomy stopped working well and she returned to [place] [facility] after her last visit here. Dr. Meier had to take her back to the OR, but he got things working well again. Jan, Removal of staple (ICD-10 - Z48.02) She has a full set of larry again. The ones I had removed at the last visit are back again as she had to have another procedure. I removed the ones that I could (i.e. the ones not under tension with good opposition of skin underneath. There were several areas where she needs longer to heal and the larry were left in these for now. Jan, Subacute cough (ICD-10 - R05.2) The Karine Contreras don't seem to be breaking down before they transit her system. As she had had surgery a couple of times recently, I will check an x-ray to verify that there is nothing else she needs treated. I will prescribe a liquid anti-tussive as the capsules don't seem to be effective right now. Jan, Candidal dermatitis (ICD-10 - B37.2) She has a yeast dermatitis. Using nystatin powder should help clear this up. I gave her instructions on how to properly use this. Jan, Debility (ICD-10 - R53.81) As she had had surgery twice recently, I will send her to [facility] for another evaluation for a motorized chair. The previous one is now outdated. I am still conflicted about her using one as I think she will be become very dependent on this and end up weaker in the long run. However, she is now more weak than ever after two recent abdominal surgeries and her father is becoming more frail too. PLAN OF TREATMENT Medication Medication Name Sig [...] orally q12h prn for 11 days Jan, Treatment Notes Assessment Notes Clinical Notes Ileostomy status Her ostomy stopped w orking well and she returned to [place] after her last visit here. Dr. Meier had to take her back to the OR, but he got things working well again. Removal of staple She has a full set o f larry again. The ones I had removed at the last visit are back again as she had to have another procedure. I removed the ones that I could (i.e. the ones not under tension with good opposition of skin underneath. There were several areas where she needs longer to heal and the larry were left in these for now. Subacute cough The Karine Contreras don't seem to be breaking down before they transit her system. As she had had surgery a couple of times recently, I will check an x-ray to verify that there is nothing else she needs treated. I will prescribe a liquid anti-tussive as the capsules don't seem to be effective right now. Candidal dermatitis She has a yeast derm atitis. Using nystatin powder should help clear this up. I gave her instructions on how to properly use this. Debility As she had had surge ry twice recently, I will send her to [facility] for another evaluation for a motorized chair. The previous one is now outdated. I am still conflicted about her using one as I think she will be become very dependent on this and end up weaker in the long run. However, she is now more weak than ever after two recent abdominal surgeries and her father is becoming more frail too. Treatment Notes Test Name Order Date PLZ CHEST 2 VIEW 2021-01-12 Referrals Referral Date Details please redo/update evaluatio n for a motorized wheel chair Next Appt Details 1 Week Reason:finish suture removal Provider Name:Tutu Sanchez, 0 2 10:30:00 AM, [address] [facility], , [place], [address], Provider Name:Mathew Worthington, 2021-05-17 11:00:00 AM, [address] [facility] 3rd Floor, , [place], [address], Follow Up:1 Weekfinish suture removal Insurance Providers Payer Name Payer Address Payer Phone Insured Name Patient Relati onship to Insured Coverage Start Date Coverage End Date [facility] [address] [facility] [phone] RUBA GRAFF,GLENN medina
--- OUTSIDE RECORDS SUMMARY | 2021-03-23 18:54 | CCD ---
Author Author [facility] Organization [facility] Address Unknown Phone Unavailable Care Team Providers [facility] Analyst Name Role Phone Tutu Sanchez Unavailable PROBLEMS Type Condition ICD9-CM Code OPY06-AH Code Onset Dates Condition S tatus W/U Status Risk SNOMED Code Notes Problem Complicated headache syndromes G44.59 Active confir med 596097192 Problem Chronic maxillary sinusitis J32.0 Active confirmed 02957142 Problem Unspecified asthma J45.909 Active confirmed 550850526 Problem Chronic pain associated with significant psychos ocial dysfunction G89.4 Active confirmed 967659578 Problem Chronic nausea R11.0 Active confirmed 56770 7007 Problem Left lower quadrant pain R10.32 Active confirmed 850596776 Problem History of abdominal surgery Z98.890 Active confirm ed 532013633 Problem 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 Active confirm ed 19570870 Problem Internal hemorrhoids without mention of complication K64.8 Active confirmed 57500108 Problem Mixed hyperlipidemia E78.2 Active confirmed 484895846 Problem Viral warts, unspecified B07.9 Active confirmed 38971735 Problem Breast calcification seen on mammogram R92.1 A ctive confirmed 643397514 Problem Pelvic muscle wasting N81.84 Active confirmed 12150385 Problem Hypomagnesemia E83.42 Active confirmed 88190 5004 Problem Anemia, chronic disease D63.8 Active confirmed 985962725 Problem Dysfunction of eustachian tube, bilateral H69.83 Active confirmed 43537429 Problem Esophageal reflux K21.9 Active confirmed 23 2730832 Problem DM w/o complication type II E11.9 Active confirmed 687602360 Problem Low back pain M54.5 Active confirmed 736457 009 Problem DM w/o complication type II, uncontrolled E11.65 Active confirmed 63977881 Problem Occipital neuralgia M54.81 Active confirmed 48380470 Problem custodial (current) use of insulin Z79.4 Activ e confirmed 041033401 Problem Chronic prescription opiate use Z79.899 Active confirmed 822948422 Problem Granulomatous disorder of the skin and s ubcutaneous tissue, unspecified L92.9 Active confirmed 792400315 Problem Multiple drug allergies Z88.9 Active confirmed 734505930 Problem Port catheter in place Z95.828 Active confirmed 377609989 Problem Myalgia M79.1 Active confirmed 97351142 Problem Chronic kidney disease, stage III (moderate) N18.3 Active confirmed 599030408 Problem Type 2 diabetes mellitus with stage 3 chronic kidney disea se E11.22 Active confirmed 66349151 Problem Fatty liver K76.0 Active confirmed 74205564 7 Problem Ileostomy status Z93.2 Active confirmed 302 596501 Problem Encounter for care related to vascular access port Z45.2 Active confirmed 430531972 Problem Complex regional pain syndrome I of left lower limb G90.522 Active confirmed 788458016 Problem Type 2 diabetes mellitus without complications E11 .9 Active confirmed 407696122 Problem grape crusher current use of insulin Z79.4 Active conf irmed 405265878 Problem Hypoglycemia E16.2 Active confirmed 5583539 03 Problem Myalgia, other site M79.18 Active confirmed 17345409 Problem Allergic rhinitis, unspecified seasonality, unspecifie d trigger J30.9 Active confirmed 98904291 Problem Constipation, unspecified constipation type K59.00 Active confirmed 62339698 Problem Pseudogout M11.20 Active confirmed 637838144 Problem Flexural eczema L20.82 Active confirmed 5709 2006 Problem Cervicalgia M54.2 Active confirmed 07000616 Problem Other chronic pain G89.29 Active confirmed 8 4003065 Problem Grief F43.20 Active confirmed 733224402 Problem Type 2 diabetes mellitus with hyperglycemia E11.65 Active confirmed 01426795 Problem Disorders of magnesium metabolism, unspecified E83 .40 Active confirmed 29975288 Problem Spinal cord stimulator status Z96.89 Active confirm ed 657529619 Problem Rosacea L71.9 Active confirmed 048961848 Problem Vaginal atrophy N95.2 Active confirmed 2971 91712 Problem Incisional hernia with obstruction but no gangrene K43.0 Active confirmed 354062627 Problem Falls frequently R29.6 Active confirmed 279 667224 ALLERGIES Allergen (clinical drug ingredient) Drug/Non Drug Allergy do cumented on EMR Reaction Allergy Type Onset Date Status morphine Morphine Sulfate(NDC Code:[address]-82) severe h/a with big dose Drug Allergy Active codeine Codeine Sulfate(NDC Code:[address]-34) out of b vito experience Drug Allergy Active ketorolac Ketorolac Tromethamine(NDC Code:[address]-59) vomitin g Drug Allergy Active Gastrografin(NDC Code:[address]-93) Onl y 1 bottle per test day (can not tolerate any more than 1 bottle) Drug Allergy Active Penicillin (For Allergies Use Only) Hives Drug Allerg y Active tiagabine Gabitril(NDC Code:[address]-91) nervous Drug Allergy Active Baclofen affected nervous syt Drug Allergy Ac tive Vicodin Confusion Drug Allergy Active Readi-Cat Hives Drug Allergy Active red food dye rash Non Drug Allergy Active Phenothiazines phenothiazines nervous system Non Drug Allergy Active promethazine Promethazine HCl(NDC Code:[address]-05) out of body experience Drug Allergy Active lorazepam Ativan(NDC Code:[address]-51) hallucinations Drug Allergy Active tizanidine Tizanidine HCl(NDC Code:[address]-27) Hives Drug All ergy Active droperidol Droperidol(NDC Code:[address]-04) out of body Drug Allerg y Active Latex (for allergy use only) difficulty Drug Allergy Active iodine(NDC Code:26921-67817) nerves, tight muscles Drug Al lergy Active pregabalin Lyrica shakes, everything is black Drug Allergy Active nitrofurantoin, macrocrystals / nitrofurantoin, monohy drate Macrobid(NDC Code:[address]-12) Hives, blurred vision Drug Allergy Active azithromycin Azithromycin(NDC Code:[address]-30) hives Drug All ergy Active Sulfasalazine Sulfa Antibiotics Hives Drug Allergy Ac tive Oxycodone vomiting,hives Drug Allergy Active meperidine Meperidine HCl(NDC Code:[address]-37) out of dena dy experience Drug Allergy Active tramadol Tramadol(NDC Code:[address]-21) shakes Drug Allergy Active lidoderm (licocanine) heart races Non Drug Allergy Active gabapentin Gabapentin(NDC Code:[address]-56) nervous syste m,shakey Drug Allergy Active quinolones- cipro,tequin Hives Non Drug Allergy Active fentanyl Fentanyl(NDC Code:[address]-56) nervous Drug Allergy Active albuterol Albuterol Sulfate(NDC Code:[address]-67) cough Drug Allergy Active aspirin Aspirin(NDC Code:[address]-88) Hives Drug Allergy Active ENCOUNTERS from 1960 to 2021-01-27 Encounter Location Date Provider Diagnosis [place] [id number] [facility] [phone] [place] [address] 11 Jan, 2021 Tutu Sanchez IMMUNIZATIONS Vaccine Route Administration [...] Education Language: Question Answer Notes Languages spoken: Micronesian Worship: Question Answer Notes Worship [facility] [employer] Sexual Hx: Question Answer Notes [...] day for 10 days Dec, Not-Taking Nystatin 786176 UNIT/GM 1 application Externally Twice a day [...] 4"x10yd - as directed May, Active August [place]ags (94457) ICD:v55.3 change as needed ([place] cao) for [...] as needed for 30 Days Medicaid #: [id number] Jun, Active Hydrocodone-Chlorpheniramine 5ml orally q12h prn for 11 days Jan, Active OneTouch Delica Plus [id number] - USE 1 LANCET FOUR TIMES A D AY NEEDED for 50 Active Dicyclomine HCl 10 MG TAKE ONE CAPSULE BY MOUTH FOUR TIMES A DAY for 30 Active May have jerome wafers flating flanges ICD: v55.3 ( 32060 2 1/2 change as needed (Tatianna) Active [...] at bedtime for 30 Days Active Nystatin 550581 UNIT/GM 1 application Externally Four times a da y for 30 days Oct, Active Glucometer testing 4 times a day and as needed Dx: E11/65 for 30 days Medicaid #: [id number] Jun, Active Baby Wipes 1 as directed topically prn dx:569.62 for 7 day(s) Active Saline Nasal [place] 0.65 % 1-2 sprays right nostril Sudeep ally 2-3 times a day for 7 day(s) Sep, Active Cavilon spray Apply a uniform coating of f ilm over the ostomy region topically Daily and as needed Dx: Z93.2 for 28 day(s) Oct, Active Nebulizer/Tubing/Mouthpiece - as directed dx: J45.909 every 4 hours as needed for 90 day(s) August, Active Pen [place] 5/16" 31G X 8 MM as directed subcutaneousl y BID dx: E11.65 for 90 day(s) Jul, Active Mupirocin 2 % 1 application to the left in dex finger Externally Three times a day for 10 day(s) Oct, Active Pedialyte - 360ml Orally TID for 30 Days Jul, Not-Taking Neosporin Pain Relieving [place] 1 topical twice for 7 days Oct, [...] VAGINALLY EVERY DAY for 30 Active Nystatin 969444 UNIT/GM APPLY TO AFFECTED AREA(S) AR OUND STOMA 2 TIMES A DAY DIRECTED UNTIL HEALED Externally Twice a day for 14 days Active Pedialyte bottle 330 ml Orally three times daily for 30 days Active Cephalexin 500 MG 1 capsule Orally Four times a day Not-Taking Nystatin Powder 380463 UNIT/GM apply Externally four t imes a [...] Information RESULTS No Results REASON FOR VISIT Medication MEDICAL (GENERAL) HISTORY Type Description Date Medical [...] small bowel obstructi on 09/2020 Hospitalization History [facility] - Ventral Hernia 11/2020 Goals Section [...] Provider Name:Tutu Sanchez, 2021-01-12 9 08:30:00 AM, [facility], , [place], [address], Provider Name:Tutu Sanchez, 2 10:30:00 AM, [address] [facility], , [place], [address], Provider Name:Mathew Worthington, 2021-05-17 11:00:00 AM, [address], , [place], [address], Insurance Providers Payer Name Payer Address Payer Phone Insured Name Patient Relati onship to Insured Coverage Start Date Coverage End Date [facility] [address] [place] [id number] GLENN SARAH
--- OUTSIDE RECORDS SUMMARY | 2021-03-23 18:54 | CCD ---
Author Author [facility] Organization [facility] Address Unknown Phone Unavailable Care Team Providers Care Mustanger Name Role Phone Tutu Sanchez Unavailable PROBLEMS Type Condition ICD9-CM Code EFN82-SK Code Onset Dates Condition S tatus W/U Status Risk SNOMED Code Notes Problem Complicated headache syndromes G44.59 Active confir med 457100931 Problem Chronic maxillary sinusitis J32.0 Active confirmed 96079267 Problem Unspecified asthma J45.909 Active confirmed 244648847 Problem Chronic pain associated with significant psychos ocial dysfunction G89.4 Active confirmed 155974804 Problem Chronic nausea R11.0 Active confirmed 52463 7007 Problem Left lower quadrant pain R10.32 Active confirmed 251086963 Problem History of abdominal surgery Z98.890 Active confirm ed 540366021 Problem 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 Active confirm ed 92441468 Problem Internal hemorrhoids without mention of complication K64.8 Active confirmed 45861338 Problem Mixed hyperlipidemia E78.2 Active confirmed 132192854 Problem Viral warts, unspecified B07.9 Active confirmed 62303497 Problem Breast calcification seen on mammogram R92.1 A ctive confirmed 619644746 Problem Pelvic muscle wasting N81.84 Active confirmed 17387727 Problem Hypomagnesemia E83.42 Active confirmed 88130 5004 Problem Anemia, chronic disease D63.8 Active confirmed 884353003 Problem Dysfunction of eustachian tube, bilateral H69.83 Active confirmed 65370962 Problem Esophageal reflux K21.9 Active confirmed 23 3862045 Problem DM w/o complication type II E11.9 Active confirmed 888037839 Problem Low back pain M54.5 Active confirmed 138528 009 Problem DM w/o complication type II, uncontrolled E11.65 Active confirmed 91120941 Problem Occipital neuralgia M54.81 Active confirmed 11930167 Problem intermediate (current) use of insulin Z79.4 Activ e confirmed 988188603 Problem Chronic prescription opiate use Z79.899 Active confirmed 078985046 Problem Granulomatous disorder of the skin and s ubcutaneous tissue, unspecified L92.9 Active confirmed 357999560 Problem Multiple drug allergies Z88.9 Active confirmed 765876335 Problem Port catheter in place Z95.828 Active confirmed 439287528 Problem Myalgia M79.1 Active confirmed 82324297 Problem Chronic kidney disease, stage III (moderate) N18.3 Active confirmed 657724420 Problem Type 2 diabetes mellitus with stage 3 chronic kidney disea se E11.22 Active confirmed 24684279 Problem Fatty liver K76.0 Active confirmed 91109030 7 Problem Ileostomy status Z93.2 Active confirmed 302 599910 Problem Encounter for care related to vascular access port Z45.2 Active confirmed 630774484 Problem Complex regional pain syndrome I of left lower limb G90.522 Active confirmed 099095783 Problem Type 2 diabetes mellitus without complications E11 .9 Active confirmed 612489753 Problem 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 Active conf irmed 669206890 Problem Hypoglycemia E16.2 Active confirmed 5075568 03 Problem Myalgia, other site M79.18 Active confirmed 97290937 Problem Allergic rhinitis, unspecified seasonality, unspecifie d trigger J30.9 Active confirmed 91697779 Problem Constipation, unspecified constipation type K59.00 Active confirmed 87213822 Problem Pseudogout M11.20 Active confirmed 686013514 Problem Flexural eczema L20.82 Active confirmed 5709 2006 Problem Cervicalgia M54.2 Active confirmed 63805231 Problem Other chronic pain G89.29 Active confirmed 8 8654838 Problem Grief F43.20 Active confirmed 320519845 Problem Type 2 diabetes mellitus with hyperglycemia E11.65 Active confirmed 84572900 Problem Disorders of magnesium metabolism, unspecified E83 .40 Active confirmed 29244287 Problem Spinal cord stimulator status Z96.89 Active confirm ed 591023294 Problem Rosacea L71.9 Active confirmed 675312650 Problem Vaginal atrophy N95.2 Active confirmed 2971 87544 Problem Incisional hernia with obstruction but no gangrene K43.0 Active confirmed 181074901 Problem Falls frequently R29.6 Active confirmed 279 200090 ALLERGIES Allergen (clinical drug ingredient) Drug/Non Drug Allergy do cumented on EMR Reaction Allergy Type Onset Date Status morphine Morphine Sulfate(ND Code:[address]-27) severe h/a with big dose Drug Allergy Active codeine Codeine Sulfate(NDC Code:[address]-27) out of b vito experience Drug Allergy Active ketorolac Ketorolac Tromethamine(NDC Code:[address]-56) vomitin g Drug Allergy Active Gastrografin(NDC Code:[address]-41) Onl y 1 bottle per test day (can not tolerate any more than 1 bottle) Drug Allergy Active Penicillin (For Allergies Use Only) Hives Drug Allerg y Active tiagabine Gabitril(NDC Code:[address]-51) nervous Drug Allergy Active Baclofen affected nervous syt Drug Allergy Ac tive Vicodin Confusion Drug Allergy Active Phenothiazines Phenothiazines nervous system Drug Allergy Active red food dye rash Non Drug Allergy Active promethazine Promethazine HCl(NDC Code:[address]-51) out of body experience Drug Allergy Active Readi-Cat Hives Drug Allergy Active lorazepam Ativan(NDC Code:[address]-89) hallucinations Drug Allergy Active tizanidine Tizanidine HCl(NDC Code:[address]-94) Hives Drug All ergy Active droperidol Droperidol(NDC Code:[address]-48) out of body Drug Allerg y Active Latex Latex difficulty Drug Allergy Active iodine(NDC Code:89146-84354) nerves, tight muscles Drug Al lergy Active pregabalin Lyrica shakes, everything is black Drug Allergy Active nitrofurantoin, macrocrystals / nitrofurantoin, monohy drate Macrobid(NDC Code:[address]-49) Hives, blurred vision Drug Allergy Active azithromycin Azithromycin(NDC Code:[address]-87) hives Drug All ergy Active Sulfasalazine Sulfa Antibiotics Hives Drug Allergy Ac tive Oxycodone vomiting,hives Drug Allergy Active meperidine Meperidine HCl(NDC Code:[address]-84) out of dena dy experience Drug Allergy Active quinolones- cipro,tequin Hives Non Drug Allergy Active lidoderm (licocanine) heart races Non Drug Allergy Active gabapentin Gabapentin([facility] Code:[address]-78) nervous syste m,shakey Drug Allergy Active fentanyl Fentanyl(ND Code:[address]-04) nervous Drug Allergy Active tramadol Tramadol(ND Code:[address]-84) shakes Drug Allergy Active albuterol Albuterol Sulfate([facility] Code:[address]-74) cough Drug Allergy Active aspirin Aspirin(ND Code:[address]-35) Hives Drug Allergy Active ENCOUNTERS from 1960 to 2021-02-06 Encounter Location Date Provider Diagnosis [address] [phone] [place] [address] 08 Jan, 2021 Tutu Laura Removal of staple Z48.02 ; S ubacute cough R05.2 ; Nasal lesion J34.89 ; DM w/o complication type II E11.9 and Hypomagnesemia E83.42 IMMUNIZATIONS Vaccine Route Administration Date Status Toradol [...] IM Intramuscular Jan 12, 2010 Admi nistered Pneumococcal Adult 0.5mL Pneumovax 23 [...] IM Intramuscular Feb 20, 2017 Admi nistered Influenza 6mo & up Fluzone IM Intramuscular Jan 20, 2015 Admi nistered Toradol 60mg/2mL Ketorolac IM Intramuscular July 21, 2017 Admi nistered Influenza 6mo & up Fluzone IM Intramuscular Feb 03, 2017 Admi nistered Toradol 60mg/2mL Ketorolac IM Intramuscular July 22, 2017 Admi nistered Pneumococcal Adult 0.5mL Pneumovax 23 IM Intramuscular September 25, 2018 Administered Toradol 60mg/2mL Ketorolac IM Intramuscular July 23, 2017 Admi nistered Hepatitis A & B 1mL Twinrix IM Intramuscular Apr 15, 2012 Adm inistered Toradol 60mg/2mL Ketorolac IM Intramuscular Feb 21, 2017 Admi nistered Hepatitis A & B 1mL Twinrix IM Intramuscular October 02, 2011 Adm inistered Toradol 60mg/2mL Ketorolac IM Intramuscular Feb 24, 2017 Admi nistered Hepatitis A & B 1mL Twinrix IM Intramuscular Feb 11, 2012 Adm inistered Rocephin 1gm Ceftriaxone IM Intramuscular May 19, 2017 Admini stered Pneumococcal Adult 0.5mL Pneumovax 23 IM Intramuscular Feb 22 013 Administered Toradol 60mg/2mL Ketorolac IM Intramuscular July 14, [...] IM Intramuscular Jan 20, 2017 Admi nistered Rocephin 1gm Ceftriaxone IM Intramuscular May 22, 2017 Admini stered Rocephin 1gm Ceftriaxone IM Intramuscular Dec 15, 2015 Admini stered Rocephin 1gm Ceftriaxone IM Intramuscular Dec 19, 2015 Admini stered Rocephin 1gm Ceftriaxone IM Intramuscular Dec 20, 2015 Admini stered Toradol 60mg/2mL Ketorolac IM Intramuscular Jan 09, 2017 Admi nistered Toradol 60mg/2mL Ketorolac IM Intramuscular July 30, 2019 Admi nistered Toradol 60mg/2mL Ketorolac IM Intramuscular Jan 08, 2017 Admi nistered Rocephin 1gm Ceftriaxone IM Intramuscular May 23, 2017 Admini stered Toradol 60mg/2mL Ketorolac IM Intramuscular Jan 13, 2017 Admi nistered Rocephin 1gm Ceftriaxone IM Intramuscular May 20, 2017 Admini stered Toradol 60mg/2mL Ketorolac IM Intramuscular Jan 17, 2017 Admi nistered Rocephin 1gm Ceftriaxone IM Intramuscular May 21, 2017 Admini stered Rocephin 1gm Ceftriaxone IM Intramuscular Dec 21, 2015 Admini stered Rocephin 1gm Ceftriaxone IM Intramuscular Dec 22, 2015 Admini stered Rocephin 1gm Ceftriaxone IM Intramuscular Apr 26, 2016 Admini stered Influenza 18 yrs & older Flublok IM [...] Education Language: Question Answer Notes Languages spoken: Armenian Anabaptism: Question Answer Notes Anabaptism 15 [employer] Sexual Hx: Question Answer Notes [...] FOR REFERRAL No Information VITAL SIGNS Weight 153.0 lbs Jan, Weight-kg 69.4 kg Jan, Height 67 in Jan, BMI 23.96 kg/m2 Jan, Heart Rate 99 /min Jan, Respiratory Rate 18 /min Jan, Temperature 97.6 degrees Fahrenheit Jan, Oximetry 98 Jan, Blood pressure systolic 120 mm Hg Jan, Blood pressure diastolic 74 mm Hg Jan, MEDICATIONS Medication SIG (Take, Route, Frequency, Duration) Notes Start Da te End Date Status Mesalamine 1000 MG 1 suppository at bedtime Rectal Once a day fo r 30 day(s) Mar, Not-Taking Lactulose 20 GM/30ML 10 ml Orally four times a day for 30 Days Active Tessalon Perles 100 MG 1 capsule as needed Orally T hree times a day for 10 day(s) Dec, Not-Taking Pedialyte bottle 330 ml Orally three [...] MDD of 8 mg please. Nov, Not-Taking DuoDERM CGF Dressing - 1 packet Externally Daily for 14 day(s) Oct, Active Simethicone 80 [...] G90.522, N81.84 for 99 days May, Active Cephalexin 500 MG 1 capsule Orally Four times a day Not-Taking Baby Wipes 1 as directed topically prn dx:569.62 for 7 day(s) Active Mometasone Furoate 50 MCG/ACT SPRAY TWO SPRAYS IN EACH NOSTR [place] EVERY DAY for 30 Active Nystatin 133836 UNIT/GM APPLY TO AFFECTED AREA(S) AR OUND STOMA 2 TIMES A DAY DIRECTED UNTIL HEALED Externally Twice a day for 14 days Not-Taking Hydrocodone-Chlorpheniramine 5ml orally q12h prn for 11 days Jan, Not-Taking Zofran 4 MG/2ML 4 mg Injection TID at least 6h apart for 30 Days Nov, Active Mupirocin 2 % apply a small amount to righ t nostril with q-tip Externally twice a day for 7 days Sep, Active Saline Nasal [place] 0.65 % 1-2 sprays right nostril Sudeep ally 2-3 times a day for 7 day(s) Sep, Active BD Pen Needle Short U/F 31G X 8 MM USE 1 NEEDLE UNDER THE SKIN ONCE A DAY for 30 Active Cephalexin 500 MG 1 capsule Orally every 6 hrs for 7 days August, Active August Flakita Bags (47924) ICD:v55.3 change as needed ([place] cao) for 30 day(s) Active Amitriptyline HCl 50 MG as directed Orally 1 tab in am and 3 tabs at bedtime for 30 Days Active Alcohol Prep Pad 70 % as directed E11.9 test blood sugar QID PRN for 50 Active Levemir Flex Touch 100 UNIT/ML 50 units Subcutaneous in the morning for 30 Active Senna 8.6 MG 2 tablets at bedtime as needed Orally Once a day x 10 da ys Active Nystatin 334202 UNIT/GM 1 application Externally Twice a day for 15 Active Metoclopramide HCl 10 MG 1 tablet before meals and be dtime Orally three times daily before meals for 30 days Jun, A ctive [facility] Magnesium Oxide 250 MG 1 tablet with food Orally Once a day for 5 days Jan, Active Sucralfate 1 GM TAKE ONE TABLET BY MOUTH TWICE A DAY WITH MEALS for 3 0 Active Mupirocin 2 % 1 application Externally Three times a day for 14 Active Sodium Chloride 0.9 % one application inside the R nostril every 2 hrs prn for 7 day(s) Mar, Active Nystatin 532113 UNIT/GM 1 application Externally Four times a da y for 30 days Oct, Active Nystatin Powder 995700 UNIT/GM apply Externally four t imes a day under the left breast for 14 day(s) Oct, Active Medipore H Surgical 4"x10yd - as directed May, Active Glucometer testing 4 times a day and as needed Dx: E11/65 for 30 days Medicaid #: [id number] Jun, Active Syringe 2-3 ML 3 ML dx: r11.0 intramuscularly tid prn for 30 Day s Feb, Active Albuterol Sulfate HFA 108 (90 Base) MCG/ACT INHALE TWO PUFFS BY MOUTH EVERY 4 HOURS NEEDED for 30 Active Victoza 18 MG/3ML 1.8mg Subcutaneous Daily Mar, Active Ammonium Lactate 12 % 1 application Externally Twice a day to feet fo r 30 Active May have flakita wafers flating flanges ICD: v55.3 ( 63520 2 1/2 change as needed ([place]) Active Pedialyte - 360ml Orally TID for 30 Days Jul, Not-Taking Test Strips - - Dx: E11.65 four times daily as needed for 30 Days Medicaid #: [id number] Jun, Active Neosporin Pain Relieving [place] 1 topical twice for 7 days Oct, Not-Taking Ondansetron HCl 4 MG/2ML INJECT 1 VIAL [4MG] TWO TIME S A DAY AT LEAST 8 HOURS APART DIRECTED for 30 Active OneTouch Delica Plus [id number] - USE 1 LANCET FOUR TIMES A D AY NEEDED for 50 Active Dicyclomine HCl 10 MG TAKE ONE CAPSULE BY MOUTH FOUR TIMES A DAY for 30 Active Neosporin LT apply topically twice a day for 7 days Oct Not-Taking Pen [place] /16" 31G X 8 MM as directed subcutaneousl [...] Information RESULTS No Results REASON FOR VISIT staple removal MEDICAL (GENERAL) HISTORY Type Description Date Medical [...] small bowel obstructi on 09/2020 Hospitalization History [facility] - Ventral Hernia 11/2020 Goals Section No Information Health Concerns No Information MEDICAL EQUIPMENT No Information MENTAL STATUS No Information FUNCTIONAL STATUS No Information ASSESSMENTS Encounter Date Diagnosis Assessment Notes Treatment Notes Treatm ent Clinical Notes Jan, Removal of staple (ICD-10 - Z48.02) I removed the remainder of the larry from her abdominal incision today. Jan, Subacute cough (ICD-10 - R05.2) She still has her cough, but couldn't get Hycodan through her insurance company. It seems like she may be able to get hydrocodone-chlopheniramine so I prescribed this. Jan, Nasal lesion (ICD-10 - J34.89) I see some general erythema in her nares, but no specific lesions. She has been in several healthcare facilities recently S. aureus colonization would not be unusual in this situation. I prescribed nasal Bactroban to see if this helps. Jan, DM w/o complication type II (ICD-10 - E11.9) Her DM is doing really well. I ordered an HbA1c to see how this is trending. 08 Oct, 2021 Hypomagnesemia (ICD-10 - E83.42) I ordered a follow-up Mg level to make sure she is maintaining now that her ostomy is working better. PLAN OF TREATMENT Medication Medication Name Sig Start Date Stop Date [facility] Magnesium Oxide 250 MG 1 tablet with food Orally Once a day for 5 days Jan, Zofran 4 MG/2ML 4 mg Injection TID at least 6h apart for 30 Days Nov, Treatment Notes Assessment Notes Clinical Notes Removal of staple I removed the remain mira of the larry from her abdominal incision today. Subacute cough She still has her co ugh, but couldn't get Hycodan through her insurance company. It seems like she may be able to get hydrocodone- chlopheniramine so I prescribed this. Nasal lesion I see some general e rythema in her nares, but no specific lesions. She has been in several healthcare facilities recently S. aureus colonization would not be unusual in this situation. I prescribed nasal Bactroban to see if this helps. DM w/o complication type II Her DM is do ing really well. I ordered an HbA1c to see how this is trending. Hypomagnesemia I ordered a follow-u p Mg level to make sure she is maintaining now that her ostomy is working better. Treatment Notes Test Name Order Date HEMOGLOBIN A1c 2021-01-19 CBC with Differential 2021-01-19 MAGNESIUM LEVEL 2021-01-19 Next Appt Details 6 -8 Weeks Reason:follow-up hand lesions Provider Name:Tutu Sanchez, 2 10:30:00 AM, [address] [facility], , [place], [address], Provider Name:Mathew Worthington, 2021-05-17 11:00:00 AM, [address] [facility] [address], , [place], [address], Follow Up:6 -8 Weeksfollow-up hand lesions Insurance Providers Payer Name Payer Address Payer Phone Insured Name Patient Relati onship to Insured Coverage Start Date Coverage End Date [facility] [address] [facility] [id number] GLENN JACOBSON self
--- OUTSIDE RECORDS SUMMARY | 2021-03-23 18:54 | CCD | Continuity of Care Document ---
Author Rich Schroeder DPM Organization Unknown Address [address] [place] [address], [facility] [address] [place] [address] Phone [phone] Care Team Providers Care Hand Nailer Name Role Phone Tutu Sanchez M.D. [phone] Problems Active Problems Provider Date Type 2 [...] Mariscal,Tutu Triamcinolone Acetonide 0.1% Cream Laura Mariscal,Tutu GA-Acid Gas Relief 80mg Chewtabs Laura Mariscal,Tutu SM [...] Area Two Times A Day Unknown Nystatin 854549Wnku/GM Powder Apply To Affected Area S Around Stoma Two Times A Day as Directed Until Healed Unknown Ipratropium [place]/Albuterol Sulfate 0.5-2.5(3)mg/3ML Solution Use 1 Vial Via [...] Inject Triamcinolone Acetonide 10 ML, ND C 7848-7554-41 Injection Wali cooper, DP 05/21/2016 Inject Dexamthosone Phosphate 71828-246- 30 Injection Wali Taveras, XENA 017 Inject Triamcinolone Acetonide 10 ML, ND C 1235-6990-46 Injection Wali cooper, DP 03/06/2016 Inject Dexamthosone Phosphate 01951-581- 30 Injection Wali Taveras, XENA 016 Inject Triamcinolone Acetonide 10 ML, ND C 6738-4043-36 Injection Tigre cooper, DP 06/16/2013 Inject Dexamthosone Phosphate 27824-688- 30 Injection Tigre Taveras, XENA 014 Immunizations [...] Available Procedures Date Code Description Status 10/06/2020 81134 Office/Outpatient Established [facility] 10-19 Min Completed Medical Devices Description No Information Available Encounters Type Date Location Provider Dx Diagnosis Office Visit 10/06/2020 11:00a [place] [facility] Wali Taveras DPM B35.1 Tinea unguium [...] 10:45 am - Wali Taveras DPM at [facility] Functional Status Description No Information Available Mental Status Description No Information Available Referrals Description No Information Available
--- OUTSIDE RECORDS SUMMARY | 2021-03-23 18:55 | CCD ---
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 Name Role Phone Tutu Sanchez Unavailable PROBLEMS Type Condition ICD9-CM Code [id number] Code Onset Dates Condition S tatus W/U Status Risk SNOMED Code Notes Problem Complicated headache syndromes G44.59 Active confir med 012963907 Problem Chronic maxillary sinusitis J32.0 Active confirmed 53975752 Problem Unspecified asthma J45.909 Active confirmed 570212784 Problem Chronic pain associated with significant psychos ocial dysfunction G89.4 Active confirmed 937901092 Problem Chronic nausea R11.0 Active confirmed 29624 7007 Problem Left lower quadrant pain R10.32 Active confirmed 334654000 Problem History of abdominal surgery Z98.890 Active confirm ed 753633556 Problem 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 Active confirm ed 13783809 Problem Internal hemorrhoids without mention of complication K64.8 Active confirmed 04311827 Problem Mixed hyperlipidemia E78.2 Active confirmed 301466310 Problem Viral warts, unspecified B07.9 Active confirmed 61088193 Problem Breast calcification seen on mammogram R92.1 A ctive confirmed 883574479 Problem Pelvic muscle wasting N81.84 Active confirmed 95345783 Problem Hypomagnesemia E83.42 Active confirmed 02463 5004 Problem Anemia, chronic disease D63.8 Active confirmed 331582431 Problem Dysfunction of eustachian tube, bilateral H69.83 Active confirmed 82280015 Problem Esophageal reflux K21.9 Active confirmed 23 6263981 Problem DM w/o complication type II E11.9 Active confirmed 412075096 Problem Low back pain M54.5 Active confirmed 896885 009 Problem DM w/o complication type II, uncontrolled E11.65 Active confirmed 89743315 Problem Occipital neuralgia M54.81 Active confirmed 92007663 Problem shelter (current) use of insulin Z79.4 Activ e confirmed 128754981 Problem Chronic prescription opiate use Z79.899 Active confirmed 490144218 Problem Granulomatous disorder of the skin and s ubcutaneous tissue, unspecified L92.9 Active confirmed 503317989 Problem Multiple drug allergies Z88.9 Active confirmed 307187103 Problem Port catheter in place Z95.828 Active confirmed 074653641 Problem Myalgia M79.1 Active confirmed 21031176 Problem Chronic kidney disease, stage III (moderate) N18.3 Active confirmed 353100207 Problem Type 2 diabetes mellitus with stage 3 chronic kidney disea se E11.22 Active confirmed 41006628 Problem Fatty liver K76.0 Active confirmed 33394394 7 Problem Ileostomy status Z93.2 Active confirmed 302 772931 Problem Encounter for care related to vascular access port Z45.2 Active confirmed 299882286 Problem Complex regional pain syndrome I of left lower limb G90.522 Active confirmed 409096309 Problem Type 2 diabetes mellitus without complications E11 .9 Active confirmed 818903865 Problem 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 Active conf irmed 199343079 Problem Hypoglycemia E16.2 Active confirmed 5544917 03 Problem Myalgia, other site M79.18 Active confirmed 56038315 Problem Allergic rhinitis, unspecified seasonality, unspecifie d trigger J30.9 Active confirmed 46573381 Problem Constipation, unspecified constipation type K59.00 Active confirmed 66748287 Problem Pseudogout M11.20 Active confirmed 554942342 Problem Flexural eczema L20.82 Active confirmed 5709 2006 Problem Cervicalgia M54.2 Active confirmed 28075329 Problem Other chronic pain G89.29 Active confirmed 8 4550901 Problem Grief F43.20 Active confirmed 478570280 Problem Type 2 diabetes mellitus with hyperglycemia E11.65 Active confirmed 83354162 Problem Disorders of magnesium metabolism, unspecified E83 .40 Active confirmed 59709190 Problem Spinal cord stimulator status Z96.89 Active confirm ed 015989097 Problem Rosacea L71.9 Active confirmed 584679677 Problem Vaginal atrophy N95.2 Active confirmed 2971 62531 Problem Incisional hernia with obstruction but no gangrene K43.0 Active confirmed 759387253 Problem Falls frequently R29.6 Active confirmed 279 326394 ALLERGIES Allergen (clinical drug ingredient) Drug/Non Drug Allergy do cumented on EMR Reaction Allergy Type Onset Date Status morphine Morphine Sulfate(NDC Code:[address]-35) severe h/a with big dose Drug Allergy Active codeine Codeine Sulfate(NDC Code:[address]-13) out of b vito experience Drug Allergy Active red food dye rash Non Drug Allergy Active Gastrografin(NDC Code:[address]-56) Onl y 1 bottle per test day (can not tolerate any more than 1 bottle) Drug Allergy Active tiagabine Gabitril(NDC Code:[address]-82) nervous Drug Allergy Active ketorolac Ketorolac Tromethamine(NDC Code:[address]-10) vomitin g Drug Allergy Active Vicodin Confusion Drug Allergy Active Penicillin (For Allergies Use Only) Hives Drug Allerg y Active Readi-Cat Hives Drug Allergy Active Baclofen affected nervous syt Drug Allergy Ac tive nitrofurantoin, macrocrystals / nitrofurantoin, monohy drate Macrobid(NDC Code:[address]-70) Hives, blurred vision Drug Allergy Active promethazine Promethazine HCl(NDC Code:[address]-74) out of body experience Drug Allergy Active lorazepam Ativan(NDC Code:[address]-32) hallucinations Drug Allergy Active tizanidine Tizanidine HCl(NDC Code:[address]-01) Hives Drug All ergy Active droperidol Droperidol(NDC Code:[address]-97) out of body Drug Allerg y Active Latex (for allergy use only) difficulty Drug Allergy Active Iodine iodine nerves, tight muscles Non Drug Allergy Active pregabalin Lyrica shakes, everything is black Drug Allergy Active Phenothiazines phenothiazines nervous system Non Drug Allergy Active azithromycin Azithromycin(NDC Code:[address]-94) hives Drug All ergy Active Sulfasalazine Sulfa Antibiotics Hives Drug Allergy Ac tive Oxycodone vomiting,hives Drug Allergy Active meperidine Meperidine HCl(NDC Code:[address]-70) out of dena dy experience Drug Allergy Active tramadol Tramadol(ND Code:[address]-65) shakes Drug Allergy Active lidoderm (licocanine) heart races Non Drug Allergy Active gabapentin Gabapentin(ND Code:[address]-93) nervous syste m,shakey Drug Allergy Active quinolones- cipro,tequin Hives Non Drug Allergy Active fentanyl Fentanyl(NDC Code:[address]-71) nervous Drug Allergy Active albuterol Albuterol Sulfate(ND Code:[address]-63) cough Drug Allergy Active aspirin Aspirin(ND Code:[address]-09) Hives Drug Allergy Active ENCOUNTERS from 1960 to 2021-01-24 Encounter Location Date Provider Diagnosis [place] [id number] [facility] [phone] [place] [address] 09 Dec, 2020 Tutu Laura Ileostomy status Z93.2 ; Acq uired short bowel syndrome K91.2 ; Hypomagnesemia E83.42 ; DM w/o complication type II E11.9 ; Stage 3 chronic kidney disease, unspecified whether stage 3a or 3b CKD N18.30 ; Anemia, chronic disease D63.8 and Removal of staple Z48.02 IMMUNIZATIONS Vaccine Route Administration Date Status Toradol [...] Education Language: Question Answer Notes Languages spoken: Moldovan Scientology: Question Answer Notes [employer] [facility] [employer] Sexual Hx: Question Answer Notes [...] FOR REFERRAL No Information VITAL SIGNS Weight 167.2 lbs Dec, Weight-kg 75.84 kg Dec, Height 67 in Dec, BMI 26.18 kg/m2 Dec, Heart Rate 104 /min Dec, Respiratory Rate 18 /min Dec, Temperature 98.2 degrees Fahrenheit Dec, Oximetry 100 Dec, Blood pressure systolic 122 mm Hg Dec, Blood pressure diastolic 76 mm Hg Dec, MEDICATIONS Medication SIG (Take, Route, Frequency, Duration) Notes Start Da te End Date Status Sodium Chloride 0.9 % one application inside the R nostril every 2 hrs prn for 7 day(s) Mar, Active Cephalexin 500 MG 1 capsule Orally every 6 hrs for 7 days August, Active Levemir Flex Touch 100 UNIT/ML 50 units Subcutaneous in the morning for 30 Active Benzonatate 100 MG 1 capsule as needed Orally Three times a day for 10 days Dec, Not-Taking Nystatin 543464 UNIT/GM 1 application Externally Twice a day for 15 Active Ondansetron HCl 4 MG/2ML INJECT 1 VIAL [4MG] TWO TIME S A DAY AT LEAST 8 HOURS APART DIRECTED for 30 Active Medipore H Surgical 4"x10yd - as directed externally prn dx: z93.2 for 30 Days Oct, Active Tessalon Perles 100 MG 1 capsule [...] TIMES A DAY NEEDED for 14 Active DuoDERM CGF Dressing - 1 packet Externally Daily for 14 day(s) Oct, Active Senna 8.6 MG 2 tablets at bedtime as needed Orally Once a day x 10 da ys Active Mometasone Furoate 50 MCG/ACT 2 sprays in each nostril Nasally Once a day for 30 Active Nebulizer Compressor 1 inh [...] as needed for 30 Days Medicaid #: [id number] Jun, Active August Jerome Bags (94567) ICD:v55.3 change as needed ([place] cao) for 30 day(s) Active Nebulizer/Tubing/Mouthpiece - as directed dx: J45.909 every 4 hours as needed for 90 day(s) August, Active Hydrocodone-Chlorpheniramine 5ml orally q12h prn for 11 days Jan, Active OneTouch Delica Plus Txiyti25D - USE 1 LANCET FOUR TIMES A D AY NEEDED for 50 Active HYDROmorphone HCl 2 MG 2 tablet as needed Orally every 6 hrs for 7 days Nov, Not-Taking Ipratropium-Albuterol 0.5-2.5 (3) MG/3ML 3 ml Inhalati on every 6 hrs PRN for 30 days Dec, Active Simethicone 80 MG 2 tablets after meals and at bedtime as needed Orally three times a day as needed for abdominal pain and distention for 30 Active Mupirocin 2 % 1 application to the left in dex finger Externally Three times a day for 10 day(s) Oct, Active Mupirocin 2 % 1 application Externally Three times a day for 14 Active Amitriptyline HCl 50 MG as directed Orally 1 tab in am and 3 tabs at bedtime for 30 Days Active Albuterol Sulfate HFA 108 (90 Base) MCG/ACT 2 puffs as needed Inhalation every 4 hrs prn for 30 Active Syringe 2-3 ML 3 ML dx: r11.0 intramuscularly tid prn for 30 Day s Feb, Active May have jerome wafers flating flanges ICD: v55.3 ( 94145 2 1/2 change as needed (Tatianna) Active Saline Nasal Revloc 0.65 % 1-2 sprays right nostril Sudeep ally 2-3 times a day for 7 day(s) Sep, Active Nystatin 751625 UNIT/GM 1 application Externally Four times a da y for 30 days Oct, Active Glucometer testing 4 times a day and as needed Dx: E11/65 for 30 days Medicaid #: [id number] Jun, Active Baby Wipes 1 as directed topically prn dx:569.62 for 7 day(s) Active Cavilon spray Apply a uniform coating of f ilm over the ostomy region topically Daily and as needed Dx: Z93.2 for 28 day(s) Oct, Active Pedialyte - 360ml Orally TID for 30 Days Jul, Not-Taking Neosporin Pain Relieving Revloc 1 topical twice for 7 days Oct, Not-Taking Mupirocin 2 % apply a small amount to righ t nostril with q-tip Externally twice a day for 7 days Sep, Active Victoza 18 MG/3ML 1.8mg Subcutaneous Daily Mar, Active Bactroban 2% apply to the left little fin bill in each nostril twice a day for 5 day(s) August, Jan, Active Neosporin LT apply topically twice a [...] Surgical 4"x10yd - as directed May, Active Sucralfate 1 GM 1 tablet on an empty stomach orally bid for 30 days Active Pen [place] 08/27" 31G X 8 MM as directed subcutaneousl y BID dx: E11.65 for 90 day(s) Jul, Active Pedialyte bottle 330 ml Orally three times daily for 30 days Active Estradiol 0.1 MG/GM _insert ONE GRAM VAGINALLY EVERY DAY for 30 Active Nystatin 430108 UNIT/GM APPLY TO AFFECTED AREA(S) AR OUND STOMA 2 TIMES A DAY DIRECTED UNTIL HEALED Externally Twice a day for 14 days Active Cephalexin 500 MG 1 capsule Orally Four times a day Not-Taking Nystatin Powder 151074 UNIT/GM apply Externally four t imes a day under the left breast for 14 day(s) Oct, Active Aquaphor - apply to the perineal area a s needed Externally qid and as needed for 14 day(s) Jul, Active PROCEDURES No Information RESULTS No Results REASON FOR VISIT check drainage site MEDICAL (GENERAL) HISTORY Type Description Date Medical [...] small bowel obstructi on 09/2020 Hospitalization History [facility] - Ventral Hernia 11/2020 Goals Section No Information Health Concerns No Information MEDICAL EQUIPMENT No Information MENTAL STATUS No Information FUNCTIONAL STATUS No Information ASSESSMENTS Encounter Date Diagnosis Assessment Notes Treatment Notes Treatm ent Clinical Notes Dec, Ileostomy status (ICD-10 - Z93.2) The ventral hernias were repaired in [place] [facility] recently. Her ostomy appears to be functioning now. Dec, Acquired short bowel syndrome (ICD-10 - K91.2) Her ostomy is functoning well. This is good news. I suspect that we may be able to regulate her output better and work around the nutritional issues she has had if we can just get her ostomy functioning on a normal basis. Dec, Hypomagnesemia (ICD-10 - E83.42) I ordered labs to be checked to see her values after the surgical procedure and with a better functioning ostomy. Dec, DM w/o complication type II (ICD-10 - E11.9) Her DM appears to be well controlled recently. I am rechecking an HbA1c to see what the longer term trend is. Dec, Stage 3 chronic kidney disea se, unspecified whether stage 3a or 3b CKD (ICD-10 - N18.30) I ordered labs to see what her status has settled down to after the surgery and with the ability to take in food and fluids more regularly without as much pain. Dec, Anemia, chronic disease (ICD-10 - D63.8) I ordered labs to see her status after surgery. Dec, Removal of staple (ICD-10 - Z48.02) I was able to remove about 2/3 of the larry from her incision. The remaining ones are still under tension and are needed for support still. I will remove them next week. I also pulled the EDMUND drain without incidence. PLAN OF TREATMENT Medication Medication Name Sig Start Date Stop Date Hydrocodone-Chlorpheniramine 5ml orally q12h prn for 11 days Jan, Bactroban 2% apply to the left little fin bill in each nostril twice a day for 5 day(s) August, Jan, Treatment Notes Assessment Notes Clinical Notes Ileostomy status The ventral hernias were repaired in [place] recently. Her ostomy appears to be functioning now. Acquired short bowel syndrome Her ostomy is functoning well. This is good news. I suspect that we may be able to regulate her output better and work around the nutritional issues she has had if we can just get her ostomy function ing on a normal basis. Hypomagnesemia I ordered labs to be checked to see her values after the surgical procedure and with a better functioning ostomy. DM w/o complication type II Her DM appea rs to be well controlled recently. I am rechecking an HbA1c to see what the longer term trend is. Stage 3 chronic kidney disease, unspecified whether stage 3a or 3b CKD I ordered labs to see what her status has settled down to after the surgery and with the ability to take in food and fluids more regularly without as much pain. Anemia, chronic disease I ordered labs t o see her status after surgery. Removal of staple I was able to remove about 2/3 of the larry from her incision. The remaining ones are still under tension and are needed for support still. I will remove them next week. I also pulled the EDMUND drain without incidence. Treatment Notes Test Name Order Date HEMOGLOBIN A1c 2020-12-21 Comprehensive Metabolic Profile (CMP) 2020-12-21 CBC - Complete Blood Count 2020-12-21 MAGNESIUM LEVEL 2020-12-21 Next Appt Details 1 Week Reason:continue staple removal Provider Name:Tutu Sanchez, 2 10:30:00 AM, [address] [facility], , [place], [address], Provider Name:Mathew Worthington, 2021-05-17 11:00:00 AM, [address], , [place], [address], Follow Up:1 Weekcontinue staple removal Insurance Providers Payer Name Payer Address Payer Phone Insured Name Patient Relati onship to Insured Coverage Start Date Coverage End Date [facility] [address] [facility] [id number] RUBA GRAFF,GLENN COOPER self
--- OUTSIDE RECORDS SUMMARY | 2021-03-23 18:59 | CCD ---
Author Author [facility] Organization [facility] Address Unknown Phone Unavailable Care Team Providers Care Quality Technician [employer] Name Role Phone ADALID, VICKI HURD MD Unavailable Unavailable MOFFA, VICKI HURD MD Unavailable Unavailable MOFMIRIAN, VICKI HURD MD Unavailable Unavailable MOFMIRIAN, VICKI HURD MD Unavailable Unavailable MOFFA, VICKI HURD MD Unavailable Unavailable MOFMIRIAN, VICKI HURD MD Unavailable Unavailable MOFFA, VICKI HURD MD Unavailable Unavailable MOFMIRIAN, VICKI HURD MD Unavailable Unavailable MOFFA, VICKI [...] Unavailable MOFFA, VICKI HURD MD Unavailable Unavailable MAJAK, R CRISTOPHER DPM Unavailable [...] Unavailable MAJAK, R CRISTOPHER DPM Unavailable Unavailable AK, R CRISTOPHER DPM Unavailable Unavailable Komal Campuzano JR, MD Unavailable [...] Unavailable Komal Campuzano JR, MD Unavailable Unavailable GLORIA, A MAR DO Unavailable Unavailable GLORIA, A MAR DO Unavailable Unavailable GLORIA, A MAR DO Unavailable Unavailable GLORIA, A MAR DO Unavailable Unavailable GLORIA, A MAR DO Unavailable Unavailable GLORIA, A MAR DO Unavailable Unavailable GLORIA, A MAR DO Unavailable Unavailable GLORIA, A MAR DO Unavailable Unavailable GLORIA, A MAR DO Unavailable Unavailable GLORIA, A MAR DO Unavailable Unavailable GLORIA, A MAR DO Unavailable Unavailable GLORIA, A MAR DO Unavailable Unavailable GLORIA, A MAR DO Unavailable Unavailable GLORIA, A MAR DO Unavailable Unavailable GLORIA, A MAR DO Unavailable Unavailable GLORIA, A MAR DO Unavailable Unavailable GLORIA, A MAR DO Unavailable Unavailable GLORIA, A MAR DO Unavailable Unavailable GLORIA, A MAR DO Unavailable Unavailable GLORIA, A MAR DO Unavailable Unavailable GLORIA, A MAR DO Unavailable Unavailable GLORIA, A MAR DO Unavailable Unavailable GLORIA, A MAR DO Unavailable Unavailable Re-disclosure Warning The records that you are [...] is protected by Article 27-F of the [facility] Public Health law. If you continue you may have access to information: Regarding HIV / AIDS; Provided by facilities licensed or operated by the [facility] Office of Mental Health; or Provided by the [facility] Office for People With Developmental Disabilities. If such information is present, then the following [facility] mandated warning applies: This information has [...] law may result in a fine or chcf sentence or both. A general authorization for the release of medical or other information is NOT sufficient authorization for further disc losure. Allergies and Adverse Reactions Type Description Substance Reaction Status Data Source(s ) Drug intolerance Lyrica Pregabalin Active JUAN DANIEL (Jhony Lwoery MD [facility]) Allergy to substance Active Red Dye Active GREE NWAY (Jhony Lowery MD [facility]) Drug allergy Meperidine and Related Meperidine and Related Active JUAN DANIEL (Jhony Lowery MD [facility]) Drug intolerance Gabitril tiaGABine HCl Active GREEN WAY (Jhony Lowery MD [facility]) Drug intolerance Albuterol Inhalation Inhaler Albuterol A ctive JUAN DANIEL (Jhony Lowery MD [facility]) Drug allergy Duragesic fentaNYL Active JUAN DANIEL (Champ Lowery MD [facility]) Drug intolerance midazolam hydrochloride Midazolam HCl Act nba JUAN DANIEL (Jhony Lowery MD [facility]) Drug intolerance promethazine hydrochloride Promethazine HCl Active JUAN DANIEL (Jhony Lowery MD [facility]) Drug intolerance aspirin Aspirin Active JUAN DANIEL (Jhony Lowery MD [facility]) Drug allergy baclofen Baclofen Active JUAN DANIEL (Champ Lowery MD [facility]) Drug allergy Codeine Oral Capsule Codeine Active GR EENWAY (Jhony Lowery MD [facility]) Drug allergy Hydrocodone Oral Capsule Hydrocodone Active JUAN DANIEL (Jhony Lowery MD [facility]) Drug allergy Duramorph Morphine Sulfate Active GREENW AY (Jhony Lowery MD [facility]) Drug allergy Propoxyphene Propoxyphene Active JUAN DANIEL (Jhony Lowery MD [facility]) Drug intolerance droperidol Droperidol Active JUAN DANIEL (Jhony Lowery MD [facility]) Drug intolerance Lorazepam 0.25 MG Oral Tablet Lorazepam Active JUAN DANIEL (Jhony Lowery MD [facility]) Drug intolerance Iodine Tincture External Iodine Tincture Active JUAN DANIEL (Jhony Lowery MD [facility]) Drug intolerance Lidoderm Lidocaine Active JUAN DANIEL (Jhony Lowery MD [facility]) Drug intolerance Endy-24 Theophylline ER Active GRE ENWAY (Jhony Lowery MD [facility]) Allergy to substance Active Grape Active GREE NWAY (Jhony Lowery MD [facility]) Allergy to substance Active Latex Active GREE NWAY (Jhony Lowery MD [facility]) Allergy to substance Active Strawberries Active GR EENWAY (Jhony Lowery MD [facility]) Allergy to substance Active Tomatoes Active GREE NWAY (Jhony Lowery MD [facility]) Drug allergy Tequin Ophthalmic Solution Tequin Active JUAN DANIEL (Jhony Lowery MD [facility]) Drug allergy Ipratropium Munith 18 MCG/ACT Inhalatio n Aerosol Solution Ipratropium Munith Active JUAN DANIEL (Jhony Lowery MD [facility]) Drug allergy Mesoridazine Oral Tablet Mesoridazine Active JUAN DANIEL (Jhony Lowery MD [facility]) Drug allergy chlorpromazine hydrochloride chlorproMAZINE HCl Active JUAN DANIEL (Jhony Lowery MD [facility]) Drug allergy trifluoperazine hydrochloride Trifluoperazine HCl Active JUAN DANIEL (Jhony Lowery MD [facility]) Drug allergy Azithromycin Powder Azithromycin Active G REENWAY (Jhony Lowery MD [facility]) Drug allergy Neurontin Gabapentin Active JUAN DANIEL (Champ Lowery MD [facility]) Drug allergy Tramadol Oral Tablet Tramadol Active GR EENWAY (Jhony Lowery MD [facility]) Allergy to substance Active Adhesive Tape Active G REENWAY (Jhony Lowery MD [facility]) Drug allergy Ciprofloxacin Oral Tablet Ciprofloxacin Activ e JUAN DANIEL (Jhony Lowery MD [facility]) Drug allergy probenecid Probenecid Active JUAN DANIEL (Champ Lowery MD [facility]) Drug allergy Endocet oxyCODONE-Acetaminophen Active JUAN DANIEL (Jhony Lowery MD [facility]) Drug allergy fluphenazine hydrochloride fluPHENAZine HCl A ctive JUAN DANIEL (Jhony Lowery MD [facility]) Drug allergy Compazine Prochlorperazine Active GREENW AY (Jhony Lowery MD [facility]) Drug allergy Penicillins Penicillins Active JUAN DANIEL ( Jhony Lowery MD [facility]) Drug allergy Sulfa Antibiotics Sulfa Antibiotics Active JUAN DANIEL (Jhony Lowery MD [facility]) Allergy to substance Active Contrast IV Dye Active JUAN DANIEL (Jhony Lowery MD [facility]) Family History Family Member Name Family Member Gender Family Member Status Date o f Status Description Data Source(s) Unknown Female Problem [facility] ([facility], ) Encounters Encounter Providers Location Date Indications Data Source(s ) [place] [address] [facility] [address] 03/22/2021 12:00:00 AM EST eCW1 ([facility] [place] [address] [facility] [address] 03/06/2021 12:00:00 AM EST [facility]CW1 [facility] [place] [address] [facility] [address] 03/02/2021 12:00:00 AM EST eCW1 ([facility]) [place] [address] [facility] [address] 02/27/2021 12:00:00 AM EST eCW1 ([facility]) [place] [address] [facility] [address] 02/26/2021 12:00:00 AM EST eCW1 ([facility]) [place] [address] [facility] [address] 02/19/2021 12:00:00 AM EST eCW1 ([facility]) [place] [address] [facility] [address] 02/16/2021 12:00:00 AM EDT eCW1 ([facility]) [place] [address] [facility] [address] 02/13/2021 12:00:00 AM EDT eCW1 ([facility]) [place] [address] [facility] [address] 02/12/2021 12:00:00 AM EDT eCW1 ([facility]) [place] [address] [facility] [address] 02/12/2021 12:00:00 AM EDT eCW1 ([facility]) [place] [address] [facility] [address] 02/08/2021 12:00:00 AM EDT eCW1 ([facility]) [place] [address] [facility] [address] 02/05/2021 12:00:00 AM EDT eCW1 ([facility]) [place] [address] [facility] [address] 02/05/2021 12:00:00 AM EDT eCW1 ([facility]) [place] [address] [facility] [address] 02/05/2021 12:00:00 AM EDT [facility] [place] [address] [facility] [address] 01/31/2021 12:00:00 AM EDT eCW1 ([facility]) [place] [address] [facility] [address] 01/30/2021 12:00:00 AM EDT eCW1 [facility] Outpatient Attender: CRISTOPHER REESE [facility] Office 01/12 10:45:00 AM EDT [facility] ([facility] [place] [address] [facility] [address] 01/23/2021 12:00:00 AM EDT eCW1 ([facility]) [place] [address] [facility] [address] 01/22/2021 12:00:00 AM EDT eCW1 ([facility] [place] [address] [facility] [address] 01/19/2021 12:00:00 AM EDT eCW1 ([facility] [place] [address] [facility] [address] 01/15/2021 12:00:00 AM EDT eCW1 ([facility] [place] [address] [facility] [address] 01/12/2021 12:00:00 AM EDT eCW1 ([facility]) [place] [address] [facility] [address] 01/09/2021 12:00:00 AM EDT eCW1 ([facility]) [place] [address] [facility] [address] 01/05/2021 12:00:00 AM EDT eCW1 ([facility]) [place] [address] [facility] [address] 01/05/2021 12:00:00 AM EDT eCW1 ([facility]) [place] [address] [facility] [address] 01/05/2021 12:00:00 AM EDT eCW1 ([facility]) [place] [address] [facility] [address] 01/05/2021 12:00:00 AM EDT eCW1 ([facility]) [place] [address] [facility] [address] 12/22/2020 12:00:00 AM EDT eCW1 ([facility]) [place] [address] [facility] [address] 12/21/2020 12:00:00 AM EDT eCW1 ([facility]) [place] [address] [facility] [address] 12/20/2020 12:00:00 AM EDT eCW1 ([facility]) [place] [address] [facility] [address] 12/07/2020 12:00:00 AM EDT eCW1 ([facility]) [place] [address] [facility] [address] 12/04/2020 12:00:00 AM EDT eCW1 ([facility]) [place] [address] [facility] [address] 12/01/2020 12:00:00 AM EDT eCW1 ([facility]) [place] [address] [facility] [address] 11/29/2020 12:00:00 AM EDT eCW1 ([facility]) [place] [address] [facility] [address] 11/23/2020 12:00:00 AM EDT eCW1 ([facility]) [place] [address] [facility] [address] 11/21/2020 12:00:00 AM EDT eCW1 ([facility]) [place] [address] [facility] [address] 11/17/2020 12:00:00 AM EDT eCW1 ([facility]) [place] [address] [facility] [address] 11/17/2020 12:00:00 AM EDT eCW1 ([facility]) [place] [address] [facility] [address] 11/16/2020 12:00:00 AM EDT eCW1 ([facility]) [place] [address] [facility] [address] 11/15/2020 12:00:00 AM EDT eCW1 ([facility]) [place] [address] [facility] [address] 11/15/2020 12:00:00 AM EDT eCW1 ([facility]) [place] [address] [facility] [address] 11/13/2020 12:00:00 AM EDT eCW1 ([facility]) [place]patient [address] [facility] [address] 11/03/2020 12:00:00 AM EDT eCW1 ([facility]) [place] [address] [facility] [address] 11/02/2020 12:00:00 AM EDT eCW1 ([facility]) [place] [address] [facility] [address] 11/01/2020 12:00:00 AM EDT eCW1 ([facility]) [place] [address] [facility] [address] 10/31/2020 12:00:00 AM EDT eCW1 ([facility]) [place] [address] [facility] [address] 10/30/2020 12:00:00 AM EDT eCW1 ([facility]) [place] [address] [facility] [place] [address] 10/30/2020 12:00:00 AM EDT eCW1 ([facility]) [place]patient [address] [facility] [address] 10/30/2020 12:00:00 AM EDT eCW1 ([facility]) [place] [address] [facility] [address] 10/26/2020 12:00:00 AM EDT eCW1 ([facility]) Unknown [address] [facility] [place] [address] 10/26/2020 12:00:00 AM EDT eCW1 ([facility]) [place] [address] [facility] [address] 10/24/2020 12:00:00 AM EDT eCW1 ([facility]) [place] [address] [facility] [place] [address] 10/23/2020 12:00:00 AM EDT eCW1 ([facility]) [place] [address] [facility] [place] [address] 10/20/2020 12:00:00 AM EDT eCW1 ([facility]) [place] [address] [facility] [place] [address] 10/20/2020 12:00:00 AM EDT eCW1 ([facility]) [place]patient [address] [facility] [address] 10/18/2020 12:00:00 AM EDT eCW1 ([facility]) [place] [address] [facility] [place] [address] 10/18/2020 12:00:00 AM EDT eCW1 ([facility]) [place]patient [address] [facility] [address] 10/13/2020 12:00:00 AM EDT eCW1 ([facility]) Outpatient Attender: CRISTOPHER REESE [facility] Office 09/13 11:00:00 AM EDT [facility] ([facility] [place] [address] [facility] [address] 10/02/2020 12:00:00 AM EDT eCW1 ([facility]) [place] [address] [facility] [address] 09/26/2020 12:00:00 AM EDT eCW1 ([facility]) [place] [address] [facility] [place] [address] 09/18/2020 12:00:00 AM EDT eCW1 ([facility]) [place] [address] [facility] [address] 09/15/2020 12:00:00 AM EDT eCW1 ([facility] [place]patient [address] [facility] [address] 09/14/2020 12:00:00 AM EDT eCW1 ([facility]) [place] [address] [facility] [place] [address] 09/14/2020 12:00:00 AM EDT eCW1 ([facility]) [place] [address] [facility] [address] 09/12/2020 12:00:00 AM EDT eCW1 ([facility]) [place] [address] [facility] [address] 09/07/2020 12:00:00 AM EDT eCW1 ([facility]) [place] [address] [facility] [place] [address] 09/06/2020 12:00:00 AM EDT eCW1 ([facility]) [place] [address] [facility] [address] 09/04/2020 12:00:00 AM EDT eCW1 ([facility]) [place]patient [address] [facility] [place] [address] 09/04/2020 12:00:00 AM EDT eCW1 ([facility] [place]patient [address] [facility] [place] [address] 09/01/2020 12:00:00 AM EDT eCW1 ([facility]) [place] [address] [facility] [address] 08/29/2020 12:00:00 AM EDT eCW1 ([facility]) [place] [address] [facility] [address] 08/23/2020 12:00:00 AM EDT eCW1 ([facility]) [place] [address] [facility] [place] [address] 08/21/2020 12:00:00 AM EDT eCW1 ([facility]) [place]patient [address] [facility] [address] 08/18/2020 12:00:00 AM EDT eCW1 ([facility]) Unknown [address] [facility] [place] [address] 08/16/2020 12:00:00 AM EDT eCW1 ([facility]) [place] [address] [facility] [address] 08/16/2020 12:00:00 AM EDT eCW1 ([facility]) [place]patient [address] [facility] [address] 08/15/2020 12:00:00 AM EDT eCW1 ([facility]) Unknown [address] [facility] [address] 08/14/2020 12:00:00 AM EDT eCW1 ([facility]) [place] [address] [facility] [place] [address] 08/14/2020 12:00:00 AM EDT eCW1 ([facility]) Unknown [address] [facility] [address] 08/11/2020 12:00:00 AM EDT eCW1 ([facility]) [place] [address] [facility] [place] [address] 08/10/2020 12:00:00 AM EDT eCW1 ([facility]) Unknown [address] [facility] [address] 08/10/2020 12:00:00 AM EDT eCW1 ([facility]) Unknown [address] [facility] [place] [address] 08/04/2020 12:00:00 AM EDT eCW1 ([facility]) Unknown [address] [facility] [place] [address] 08/04/2020 12:00:00 AM EDT eCW1 ([facility]) Unknown [address] [facility] [place] [address] 08/03/2020 12:00:00 AM EDT eCW1 ([facility]) [place] [address] [facility] [place] [address] 08/03/2020 12:00:00 AM EDT eCW1 ([facility]) Outpatient [address] [facility] [place] [address] 07/31/2020 12:00:00 AM EDT eCW1 ([facility]) Unknown [address] [facility] [place] [address] 07/31/2020 12:00:00 AM EDT eCW1 ([facility]) [place] [address] [facility] [place] [address] 07/29/2020 12:00:00 AM EDT eCW1 ([facility]) (TCM) Transition of Care Visit [address] [place] [address] 07/28/2020 12:00:00 AM EDT eCW1 ([facility] [place] [address] [facility] [place] [address] 07/17/2020 12:00:00 AM EDT eCW1 ([facility]) Unknown [address] [facility] [place] [address] 07/12/2020 12:00:00 AM EDT eCW1 ([facility]) [place]patient [address] [facility] [address] 07/10/2020 12:00:00 AM EDT eCW1 ([facility]) Unknown [address] [facility] [address] 07/03/2020 12:00:00 AM EDT eCW1 ([facility]) Outpatient Attender: CRISTOPHER REESE [facility] Office 06/12 01:00:00 PM EDT [facility] ([facility] [place] [address] [facility] [address] 06/29/2020 12:00:00 AM EDT eCW1 ([facility]) [place] [address] [facility] [place] [address] 06/26/2020 12:00:00 AM EDT eCW1 ([facility]) [place]patient [address] [facility] [place] [address] 06/21/2020 12:00:00 AM EST eCW1 ([facility]) Outpatient [address] [facility] [place] [address] 06/20/2020 12:00:00 AM EST eCW1 ([facility]) Unknown [address] [facility] [place] [address] 06/19/2020 12:00:00 AM EST eCW1 ([facility]) Unknown [address] [facility] [address] 06/14/2020 12:00:00 AM EST eCW1 ([facility]) Unknown [address] [facility] [place] [address] 06/14/2020 12:00:00 AM EST eCW1 ([facility]) Outpatient [address] [facility] [address] 06/07/2020 12:00:00 AM EST eCW1 ([facility]) (PN Proc 45) Pain Procedure 45 [address] [place] [address] 06/06/2020 12:00:00 AM EST eCW1 [facility] Outpatient [address] [facility] [place] [address] 06/01/2020 12:00:00 AM EST eCW1 ([facility]) [place]patient [address] [facility] [address] 05/31/2020 12:00:00 AM EST eCW1 ([facility]) [place]patient [address] [facility] [address] 05/30/2020 12:00:00 AM EST eCW1 ([facility]) Unknown [address] [facility] [address] 05/29/2020 12:00:00 AM EST eCW1 ([facility]) Outpatient [address] [facility] [address] 05/29/2020 12:00:00 AM EST eCW1 ([facility]) Unknown [address] [facility] [place] [address] 05/29/2020 12:00:00 AM EST eCW1 ([facility]) [place]patient [address] [facility] [place] [address] 05/26/2020 12:00:00 AM EST eCW1 ([facility]) Outpatient [address] [facility] [place] [address] 05/25/2020 12:00:00 AM EST eCW1 ([facility]) Unknown [address] [facility] [place] [address] 05/22/2020 12:00:00 AM EST eCW1 ([facility]) Outpatient [address] [facility] [place] [address] 05/22/2020 12:00:00 AM EST eCW1 ([facility]) [place] [address] [facility] [place] [address] 05/17/2020 12:00:00 AM EST eCW1 ([facility]) [place] [address] [facility] [place] [address] 05/12/2020 12:00:00 AM EST [facility]CW1 [facility] [place] [address] [facility] [place] [address] 05/11/2020 12:00:00 AM EST eCW1 [facility] Outpatient [address] [facility] Y [address] 05/09/2020 12:00:00 AM EST eCW1 ([facility]) Unknown [address] [facility] [place] [address] 05/08/2020 12:00:00 AM EST eCW1 ([facility]) [place] [address] [facility] [place] [address] 05/08/2020 12:00:00 AM EST eCW1 ([facility]) Unknown [address] [facility] [place] [address] 05/03/2020 12:00:00 AM EST eCW1 ([facility]) Unknown [address] [facility] [place] [address] 05/03/2020 12:00:00 AM EST eCW1 ([facility]) [place] [address] [facility] [place] [address] 05/02/2020 12:00:00 AM EST eCW1 [facility] Unknown [address] [facility] [place] [address] 04/28/2020 12:00:00 AM EST eCW1 ([facility]) Outpatient Attender: Silver Carrillo/Pancho/Ivan/Luba yip 04/26/2020 09:30:00 AM EST [facility] ([facility] [place] [address] [facility] [place] [address] 04/24/2020 12:00:00 AM EST eCW1 ([facility]) [place] [address] [facility] [place] [address] 04/24/2020 12:00:00 AM EST eCW1 ([facility]) Unknown [address] [facility] [place] [address] 04/21/2020 12:00:00 AM EST eCW1 ([facility]) [place] [address] [facility] [place] [address] 04/21/2020 12:00:00 AM EST eCW1 ([facility]) [place] [address] [facility] [place] [address] 04/17/2020 12:00:00 AM EST eCW1 ([facility]) [place] [address] [facility] [address] 04/12/2020 12:00:00 AM EST eCW1 ([facility]) [place] [address] [facility] [address] 04/12/2020 12:00:00 AM EST eCW1 ([facility]) [place] [address] [facility] [address] 04/10/2020 12:00:00 AM EST eCW1 ([facility]) [place] [address] [facility] [address] 04/03/2020 12:00:00 AM EST eCW1 ([facility]) [place] [address] [facility] [address] 03/31/2020 12:00:00 AM EST eCW1 ([facility]) Outpatient Attender: VANNESSA Albrecht 03/30/2020 01:30:00 PM EST MEDENT ([facility]) [place] [address] [facility] [address] 03/28/2020 12:00:00 AM EST eCW1 ([facility]) [place] [address] [facility] [address] 03/28/2020 12:00:00 AM EST eCW1 ([facility]) [place] [address] [facility] [address] 03/24/2020 12:00:00 AM EST eCW1 ([facility]) [place] [address] [facility] [address] 03/24/2020 12:00:00 AM EST eCW1 ([facility]) [place] [address] [facility] [address] 03/24/2020 12:00:00 AM EST eCW1 ([facility]) Outpatient<td ID="encounterTypeDescripti onID0">NEW PATIENT WITH REFERRAL</td><td>Mar Sarah DO</td><td>Jhony Amado MD [facility]</td><td>03/21/2020</td><td>8:13AM</td><td>10:17AM</td><td><content ID="encounterDiagnosisID0-0">Dry Eye Syndrome</content>, <content ID="encounterDiagnosisID0-1">Cataract Senile Nuclear</content>, <content ID="encounterDiagnosisID0-2">Vitreous Disorders Degeneration</content>, <content ID="encounterDiagnosisID0-3">Taking Medication For Diabetes Long-term Use of Insulin</content>, <content ID="encounterDiagnosisID0-4">Diabetes Mellitus Type 2 Without Complication</content>, <content ID="encounterDiagnosisID0-5">Corneal Dystrophy Endothelial</content>, <content ID="encounterDiagnosisID0-6">Transient Visual Loss</content></td> Attender: MAR Reagan MD [facility] 03/21/2020 08:13:00 AM EST - 03/21/2020 10:17:00 AM ES T Transient Visual LossCorneal Dystrophy EndothelialDiabetes Mellitus Type 2 Without ComplicationTaking Medication For Diabetes Long-term Use of InsulinVitreous Disorders DegenerationCataract Senile NuclearDry Eye Syndrome [place] (Jhony Lowery MD [facility]) Transient Visual Loss Corneal Dystrophy Endothelial Diabetes Mellitus Type 2 Without Complic ation Taking Medication For Diabetes Long-term Use of Insulin Vitreous Disorders Degeneration Cataract Senile Nuclear Dry Eye Syndrome Unknown [address] [facility] [id number] 03/21/2020 12:00:00 AM EST eCW1 ([facility]) Unknown [address] [facility] [id number] 03/20/2020 12:00:00 AM EST [facility]CW1 [facility] Outpatient [address] [facility] [id number] 03/20/2020 12:00:00 AM EST eCW1 ([facility]) Unknown [address] [facility] [id number] 03/20/2020 12:00:00 AM EST eCW1 ([facility]) Outpatient Attender: CRISTOPHER REESE [facility] Office 06/2019 08:00:00 AM EST MEDENT ([facility] Unknown [address] [facility] [id number] 03/16/2020 12:00:00 AM EST eCW1 ([facility]) Outpatient Attender: Silver Carrillo/Pancho/Ivan/Luba dl 03/15/2020 12:30:00 PM EST MEDENT ([facility]) Unknown [address] [facility] [id number] 03/02/2020 12:00:00 AM EST eCW1 ([facility]) Unknown [address] [facility] [id number] 03/01/2020 12:00:00 AM EST eCW1 [facility]) Outpatient [address] [place] [address] 03/01/2020 12:00:00 AM EST eCW1 ([facility]) Unknown [address] [facility] [id number] 02/21/2020 12:00:00 AM EST eCW1 ([facility]) [place] [address] [facility] [address] 02/18/2020 12:00:00 AM EST eCW1 ([facility]) [place]patient [address] [facility] [address] 02/11/2020 12:00:00 AM EDT eCW1 ([facility]) [place] [address] [facility] [address] 02/07/2020 12:00:00 AM EDT eCW1 ([facility]) [place] [address] [facility] [place] [address] 02/04/2020 12:00:00 AM EDT eCW1 ([facility]) [place]patient [address] [facility] [address] 02/03/2020 12:00:00 AM EDT eCW1 ([facility]) [place]patient [address] [facility] [address] 01/26/2020 12:00:00 AM EDT eCW1 ([facility]) [place] [address] [facility] [address] 01/24/2020 12:00:00 AM EDT eCW1 ([facility]) Immunizations Vaccine Date Status Description Data Source(s) COVID-19 VACCINE Pfizer 03/20/2021 12:00:00 AM EST completed [facility] Vaccine Series Complete: YESThis Data wa s Submitted to [facility] Via [employer]. COVID-19 VACC, MRNA(PFIZER)/PF 03/20/2021 12:00:00 AM EST completed [facility] influenza, recombinant, quadrIvalent,injectable, prese rvative free 01/30/2021 09:14:00 AM EDT completed eCW1 ([facility]) influenza, recombinant, quadrIvalent,injectable, prese rvative free 01/30/2021 09:14:00 AM EDT completed eCW1 ([facility]) influenza, recombinant, quadrIvalent,injectable, prese rvative free 01/30/2021 09:14:00 AM EDT completed eCW1 ([facility]) influenza, recombinant, quadrIvalent,injectable, prese rvative free 01/30/2021 09:14:00 AM EDT completed eCW1 ([facility]) influenza, recombinant, quadrIvalent,injectable, prese rvative free 01/30/2021 09:14:00 AM EDT completed eCW1 ([facility]) influenza, recombinant, quadrIvalent,injectable, prese rvative free 01/30/2021 09:14:00 AM EDT completed eCW1 ([facility]) influenza, recombinant, quadrIvalent,injectable, prese rvative free 01/30/2021 09:14:00 AM EDT completed eCW1 ([facility]) influenza, recombinant, quadrIvalent,injectable, prese rvative free 01/30/2021 09:14:00 AM EDT completed eCW1 ([facility]) influenza, recombinant, quadrIvalent,injectable, prese rvative free 01/30/2021 09:14:00 AM EDT completed eCW1 ([facility]) influenza, recombinant, quadrIvalent,injectable, prese rvative free 01/30/2021 09:14:00 AM EDT completed eCW1 ([facility]) influenza, recombinant, quadrIvalent,injectable, prese rvative free 01/30/2021 09:14:00 AM EDT completed eCW1 ([facility]) influenza, recombinant, quadrIvalent,injectable, prese rvative free 01/30/2021 09:14:00 AM EDT completed eCW1 ([facility]) influenza, recombinant, quadrIvalent,injectable, prese rvative free 01/30/2021 09:14:00 AM EDT completed eCW1 ([facility]) influenza, recombinant, quadrIvalent,injectable, prese rvative free 01/30/2021 09:14:00 AM EDT completed eCW1 ([facility]) influenza, recombinant, quadrIvalent,injectable, prese rvative free 01/30/2021 09:14:00 AM EDT completed eCW1 ([facility]) influenza, recombinant, quadrIvalent,injectable, prese rvative free 01/30/2021 09:14:00 AM EDT completed eCW1 ([facility]) influenza, recombinant, quadrIvalent,injectable, prese rvative free 01/30/2021 09:14:00 AM EDT completed eCW1 ([facility]) influenza, recombinant, quadrIvalent,injectable, prese rvative free 01/30/2021 09:14:00 AM EDT completed eCW1 ([facility]) COVID-19 VACCINE Moderna 08/01/2020 12:00:00 AM EDT completed [facility] Vaccine Series Complete: YESThis Data wa s Submitted to [facility] Via [employer]. COVID-19 VACCINE Moderna 07/06/2020 12:00:00 AM EDT completed [facility] Vaccine Series Complete: NOThis Data was Submitted to [facility] Via [employer]. Medications Medication Brand Name Start Date Product Form Dose Route Admi nistrative Instructions Pharmacy Instructions Status Indications Reaction Description Data Source(s) 80 mg 03/13/2021 12:00:00 AM EST tablet,chewable 180 CHEW TWO TABLETS BY MOUTH THREE TIMES A DAY ( AFTER MEALS AND AT BEDTIME) NEEDED FOR ABDOMNIAL PAIN AND DISTENTION CHEW TWO TABLETS BY MOUTH THREE TIMES A DAY ( AFTER MEALS AND AT BEDTIME) NEEDED FOR ABDOMNIAL PAIN AND DISTENTION SOLD: 03/13/2021 [facility] 8.6 mg 03/02/2021 12:00:00 AM EST tablet 60 TAKE 1-2 TABLETS BY MOUTH AT BEDTIME NEEDED TAKE 1-2 TABLETS BY MOUTH AT BEDTIME NEEDED SOLD: 03/04/2021 [facility] 50 mg 02/28/2021 12:00:00 AM EST tablet 120 TAKE 1 TABLET BY MOUTH EVERY MORNING AND 3 TABLETS AT BEDTIME TAKE 1 TABLET BY MOUTH EVERY MORNING AND 3 TABLETS AT BEDTIME SOLD: 03/01/2021 [facility] 100,000 unit/gram 02/28/2021 12:00:00 AM EST powder 60 APPLY FOUR TIMES A DAY UNDER THE LEFT BREAST APPLY FOUR TIMES A DAY UNDER THE LEFT BREAST SOLD: 03/14/2021 [facility] 100,000 unit/gram 02/28/2021 12:00:00 AM EST powder 60 APPLY FOUR TIMES A DAY UNDER THE LEFT BREAST APPLY FOUR TIMES A DAY UNDER THE LEFT BREAST SOLD: 03/01/2021 [facility] BLOOD SUGAR DIAGNOSTIC 02/22/2021 12:00:00 AM EST strip 100 TEST FOUR TIMES A DAY NEEDED TEST FOUR TIMES A DAY NEEDED SOLD: 02/22/2021 [facility] 10 gram/15 mL 02/22/2021 12:00:00 AM EST solution 946 TAKE 10 ML BY MOUTH FOUR TIMES A DAY TAKE 10 ML BY MOUTH FOUR TIMES A DAY SOLD: 03/11/2021 [facility] 10 gram/15 mL 02/22/2021 12:00:00 AM EST solution 946 TAKE 10 ML BY MOUTH FOUR TIMES A DAY TAKE 10 ML BY MOUTH FOUR TIMES A DAY SOLD: 02/22/2021 [facility] BLOOD SUGAR DIAGNOSTIC 02/22/2021 12:00:00 AM EST strip 100 TEST FOUR TIMES A DAY NEEDED TEST FOUR TIMES A DAY NEEDED SOLD: 03/18/2021 [facility] Lactulose 667 MG/ML Oral Solution Lactulose 10 GM/15ML Lactu lose 10 GM/15ML 02/19/2021 12:00:00 AM EST 10.0 {ml} active Lactulose 10 GM/15ML eCW1 ([facility]) Lactulose 667 MG/ML Oral Solution Lactulose 10 GM/15ML Lactu lose 10 GM/15ML 02/19/2021 12:00:00 AM EST 10.0 {ml} active eCW1 ([facility]) Lactulose 667 MG/ML Oral Solution Lactulose 10 GM/15ML Lactu lose 10 GM/15ML 02/19/2021 12:00:00 AM EST 10.0 {ml} active Lactulose 10 GM/15ML eCW1 ([facility]) Lactulose 667 MG/ML Oral Solution Lactulose 10 GM/15ML Lactu lose 10 GM/15ML 02/19/2021 12:00:00 AM EST 10.0 {ml} active Lactulose 10 GM/15ML eCW1 ([facility]) Lactulose 667 MG/ML Oral Solution Lactulose 10 GM/15ML Lactu lose 10 GM/15ML 02/19/2021 12:00:00 AM EST 10.0 {ml} active Lactulose 10 GM/15ML eCW1 ([facility]) Lactulose 667 MG/ML Oral Solution Lactulose 10 GM/15ML Lactu lose 10 GM/15ML 02/19/2021 12:00:00 AM EST 10.0 {ml} active Lactulose 10 GM/15ML eCW1 ([facility]) Lactulose 667 MG/ML Oral Solution Lactulose 10 GM/15ML Lactu lose 10 GM/15ML 02/19/2021 12:00:00 AM EST 10.0 {ml} active Lactulose 10 GM/15ML eCW1 ([facility]) Albuterol 0.833 MG/ML / Ipratropium Brom karley 0.167 MG/ML Inhalation Solution 0.5 mg-3 mg(2.5 mg base)/3 mL IPRATROPIUM/ALBUTEROL SULFATE 02/14/2021 12:00:00 AM EDT solution for nebulization 360 INHALE THE CONTENTS OF ONE VIAL VIA NEBULIZER EVERY 6 HOURS NEEDED INHALE THE CONTENTS OF ONE VIAL VIA NEBU LIZER EVERY 6 HOURS NEEDED SOLD: 03/14/2021 [facility] Albuterol 0.833 MG/ML / Ipratropium Brom karley 0.167 MG/ML Inhalation Solution 0.5 mg-3 mg(2.5 mg base)/3 mL IPRATROPIUM/ALBUTEROL SULFATE 02/14/2021 12:00:00 AM EDT solution for nebulization 360 INHALE THE CONTENTS OF ONE VIAL VIA NEBULIZER EVERY 6 HOURS NEEDED INHALE THE CONTENTS OF ONE VIAL VIA NEBU LIZER EVERY 6 HOURS NEEDED SOLD: 02/14/2021 [facility] 2 mg 02/13/2021 12:00:00 AM EDT tablet 56 TAKE TWO TABLETS BY MOUTH EVERY 6 HOURS NEEDED FOR 7 DAYS MAXIMUM DAILY DOSE = 8 TABLETS TAKE TWO TABLETS BY MOUTH EVERY 6 HOURS NEEDED FOR 7 DAYS MAXIMUM DAILY DOSE = 8 TABLETS SOLD: 02/13/2021 [facility] Hydromorphone Hydrochloride 2 MG Oral Tablet HYDROmorp nellie HCl 2 MG HYDROmorphone HCl 2 MG 02/12/2021 12:00:00 AM EDT 2.0 {tablet_as_need ed} active HYDROmorphone HCl 2 MG eCW1 ([facility]) Hydromorphone Hydrochloride 2 MG Oral Tablet HYDROmorp nellie HCl 2 MG HYDROmorphone HCl 2 MG 02/12/2021 12:00:00 AM EDT 2.0 {tablet_as_need ed} active HYDROmorphone HCl 2 MG eCW1 ([facility]) Hydromorphone Hydrochloride 2 MG Oral Tablet HYDROmorp nellie HCl 2 MG HYDROmorphone HCl 2 MG 02/12/2021 12:00:00 AM EDT 2.0 {tablet_as_need ed} active HYDROmorphone HCl 2 MG eCW1 ([facility]) Hydromorphone Hydrochloride 2 MG Oral Tablet HYDROmorp nellie HCl 2 MG HYDROmorphone HCl 2 MG 02/12/2021 12:00:00 AM EDT 2.0 {tablet_as_need ed} active eCW1 ([facility]) Hydromorphone Hydrochloride 2 MG Oral Tablet HYDROmorp nellie HCl 2 MG HYDROmorphone HCl 2 MG 02/12/2021 12:00:00 AM EDT 2.0 {tablet_as_need ed} active HYDROmorphone HCl 2 MG eCW1 ([facility]) Hydromorphone Hydrochloride 2 MG Oral Tablet HYDROmorp nellie HCl 2 MG HYDROmorphone HCl 2 MG 02/12/2021 12:00:00 AM EDT 2.0 {tablet_as_need ed} active eCW1 ([facility]) 50 mcg/actuation 02/07/2021 12:00:00 AM EDT spray,non-aeroso l 17 SPRAY TWO SPRAYS IN EACH NOSTRIL EVERY DAY SPRAY TWO SPRAYS IN EACH NOSTRIL EVERY DAY SOLD: 03/09/2021 [facility] 50 mcg/actuation 02/07/2021 12:00:00 AM EDT spray,non-aeroso l 17 SPRAY TWO SPRAYS IN EACH NOSTRIL EVERY DAY SPRAY TWO SPRAYS IN EACH NOSTRIL EVERY DAY SOLD: 02/09/2021 [facility] Magnesium Oxide 250 MG [facility] Magn[facility] Oxide 250 MG 2020 12:00:00 AM EDT 1.0 {tablet_with_food} active eCW1 ([facility]) [facility] Magnesium Oxide 250 MG [facility] Magnesium Oxide 250 MG 2020 12:00:00 AM EDT 1.0 {tablet_with_food} active C VS Magnesium Oxide 250 MG eCW1 ([facility]) [facility] Magnesium Oxide 250 MG [facility] Magnesium Oxide 250 MG 2020 12:00:00 AM EDT 1.0 {tablet_with_food} active C VS Magnesium Oxide 250 MG eCW1 ([facility]) [facility] Magnesium Oxide 250 MG [facility] Magnesium Oxide 250 MG 2020 12:00:00 AM EDT 1.0 {tablet_with_food} active eCW1 ([facility]) [facility] Magnesium Oxide 250 MG [facility] Magnesium Oxide 250 MG 2020 12:00:00 AM EDT 1.0 {tablet_with_food} active C VS Magnesium Oxide 250 MG eCW1 ([facility]) [facility] Magnesium Oxide 250 MG [facility] Magnesium Oxide 250 MG 2020 12:00:00 AM EDT 1.0 {tablet_with_food} active C VS Magnesium Oxide 250 MG eCW1 ([facility]) [facility] Magnesium Oxide 250 MG [facility] Magnesium Oxide 250 MG 2020 12:00:00 AM EDT 1.0 {tablet_with_food} active C VS Magnesium Oxide 250 MG eCW1 ([facility]) [facility] Magnesium Oxide 250 MG [facility] Magnesium Oxide 250 MG 2020 12:00:00 AM EDT 1.0 {tablet_with_food} active C VS Magnesium Oxide 250 MG eCW1 ([facility]) [facility] Magnesium Oxide 250 MG [facility] Magnesium Oxide 250 MG 2020 12:00:00 AM EDT 1.0 {tablet_with_food} active C VS Magnesium Oxide 250 MG eCW1 ([facility]) [facility] Magnesium Oxide 250 MG [facility] Magnesium Oxide 250 MG 2020 12:00:00 AM EDT 1.0 {tablet_with_food} active C VS Magnesium Oxide 250 MG eCW1 ([facility]) [facility] Magnesium Oxide 250 MG [facility] Magnesium Oxide 250 MG 2020 12:00:00 AM EDT 1.0 {tablet_with_food} active C VS Magnesium Oxide 250 MG eCW1 ([facility]) [facility] Magnesium Oxide 250 MG [facility] Magnesium Oxide 250 MG 2020 12:00:00 AM EDT 1.0 {tablet_with_food} active C VS Magnesium Oxide 250 MG eCW1 ([facility]) [facility] Magnesium Oxide 250 MG [facility] Magnesium Oxide 250 MG 2020 12:00:00 AM EDT 1.0 {tablet_with_food} active C VS Magnesium Oxide 250 MG eCW1 ([facility]) [facility] Magnesium Oxide 250 MG [facility] Magnesium Oxide 250 MG 2020 12:00:00 AM EDT 1.0 {tablet_with_food} active C VS Magnesium Oxide 250 MG eCW1 ([facility]) [facility] Magnesium Oxide 250 MG [facility] Magnesium Oxide 250 MG 2020 12:00:00 AM EDT 1.0 {tablet_with_food} active C VS Magnesium Oxide 250 MG eCW1 ([facility]) [facility] Magnesium Oxide 250 MG [facility] Magnesium Oxide 250 MG 2020 12:00:00 AM EDT 1.0 {tablet_with_food} active C VS Magnesium Oxide 250 MG eCW1 ([facility]) 31 gauge x 5/16" 01/31/2021 12:00:00 AM EDT needle 30 USE 1 NEEDLE ONCE A DAY USE 1 NEEDLE ONCE A DAY SOLD: 01/31/2021 [facility] 31 gauge x 5/16" 01/31/2021 12:00:00 AM EDT needle 30 USE 1 NEEDLE ONCE A DAY USE 1 NEEDLE ONCE A DAY SOLD: 03/01/2021 [facility] Hydrocodone-Chlorpheniramine UNK 01/19/2021 12:00:00 AM EDT suspended eCW1 ([facility]) Hydrocodone-Chlorpheniramine UNK 01/19/2021 12:00:00 AM EDT suspended Hydrocodone-Chlorpheniramine eCW1 ([facility]) 2 % 01/19/2021 12:00:00 AM EDT ointment 22 APPLY WITH LEFT LITTLE FINGER IN EACH NOSTRIL TWICE A DAY FOR 5 DAYS APPLY WITH LEFT LITTLE FINGER IN EACH NOSTRIL TWICE A DAY FOR 5 DAYS SOLD: 01/19/2021 [facility] Hydrocodone-Chlorpheniramine UNK 01/19/2021 12:00:00 AM EDT suspended Hydrocodone-Chlorpheniramine eCW1 ([facility]) Hydrocodone-Chlorpheniramine UNK 01/19/2021 12:00:00 AM EDT suspended Hydrocodone-Chlorpheniramine eCW1 ([facility]) Hydrocodone-Chlorpheniramine UNK 01/19/2021 12:00:00 AM EDT suspended Hydrocodone-Chlorpheniramine eCW1 ([facility]) Hydrocodone-Chlorpheniramine UNK 01/19/2021 12:00:00 AM EDT active Hydrocodone-Chlorpheniramine eCW1 ([facility]) Hydrocodone-Chlorpheniramine UNK 01/19/2021 12:00:00 AM EDT active Hydrocodone-Chlorpheniramine eCW1 ([facility]) Hydrocodone-Chlorpheniramine UNK 01/19/2021 12:00:00 AM EDT suspended eCW1 ([facility]) Hydrocodone-Chlorpheniramine UNK 01/19/2021 12:00:00 AM EDT active Hydrocodone-Chlorpheniramine eCW1 ([facility]) Hydrocodone-Chlorpheniramine UNK 01/19/2021 12:00:00 AM EDT suspended Hydrocodone-Chlorpheniramine eCW1 ([facility]) Hydrocodone-Chlorpheniramine UNK 01/19/2021 12:00:00 AM EDT suspended Hydrocodone-Chlorpheniramine eCW1 ([facility]) Hydrocodone-Chlorpheniramine UNK 01/19/2021 12:00:00 AM EDT suspended Hydrocodone-Chlorpheniramine eCW1 ([facility]) Hydrocodone-Chlorpheniramine UNK 01/19/2021 12:00:00 AM EDT active Hydrocodone-Chlorpheniramine eCW1 ([facility]) Hydrocodone-Chlorpheniramine UNK 01/19/2021 12:00:00 AM EDT suspended Hydrocodone-Chlorpheniramine eCW1 ([facility]) Hydrocodone-Chlorpheniramine UNK 01/19/2021 12:00:00 AM EDT active Hydrocodone-Chlorpheniramine eCW1 ([facility]) Hydrocodone-Chlorpheniramine UNK 01/19/2021 12:00:00 AM EDT active Hydrocodone-Chlorpheniramine eCW1 ([facility]) Hydrocodone-Chlorpheniramine UNK 01/19/2021 12:00:00 AM EDT suspended Hydrocodone-Chlorpheniramine eCW1 ([facility]) 100,000 unit/gram 01/17/2021 12:00:00 AM EDT powder 60 APPLY FOUR TIMES A DAY UNDER THE LEFT BREAST APPLY FOUR TIMES A DAY UNDER THE LEFT BREAST SOLD: 01/29/2021 [facility] 100,000 unit/gram 01/17/2021 12:00:00 AM EDT powder 60 APPLY FOUR TIMES A DAY UNDER THE LEFT BREAST APPLY FOUR TIMES A DAY UNDER THE LEFT BREAST SOLD: 01/18/2021 [facility] 33 gauge 01/10/2021 12:00:00 AM EDT misc 100 DIRECTED FOUR TIMES A DAY NEEDED DIRECTED FOUR TIMES A DAY NEEDED SOLD: 03/20/2021 [facility] 10 mg 01/10/2021 12:00:00 AM EDT capsule 120 TAKE ONE CAPSULE BY MOUTH FOUR TIMES A DAY TAKE ONE CAPSULE BY MOUTH FOUR TIMES A DAY SOLD: 03/09/2021 [facility] 4 mg/2 mL 01/10/2021 12:00:00 AM EDT solution 240 DIRECTED 1 VIAL(4MG=2ML) TWO TIMES A DAY AT LEAST 8HRS APART DIRECTED 1 VIAL(4MG=2ML) TWO TIMES A DAY AT LEAST 8HRS APART SOLD: 02/06/2021 [facility] 33 gauge 01/10/2021 12:00:00 AM EDT misc 100 DIRECTED FOUR TIMES A DAY NEEDED DIRECTED FOUR TIMES A DAY NEEDED SOLD: 02/25/2021 [facility] 10 mg 01/10/2021 12:00:00 AM EDT capsule 120 TAKE ONE CAPSULE BY MOUTH FOUR TIMES A DAY TAKE ONE CAPSULE BY MOUTH FOUR TIMES A DAY SOLD: 01/10/2021 [facility] 10 mg 01/10/2021 12:00:00 AM EDT capsule 120 TAKE ONE CAPSULE BY MOUTH FOUR TIMES A DAY TAKE ONE CAPSULE BY MOUTH FOUR TIMES A DAY SOLD: 02/09/2021 [facility] 4 mg/2 mL 01/10/2021 12:00:00 AM EDT solution 240 DIRECTED 1 VIAL(4MG=2ML) TWO TIMES A DAY AT LEAST 8HRS APART DIRECTED 1 VIAL(4MG=2ML) TWO TIMES A DAY AT LEAST 8HRS APART SOLD: 01/10/2021 [facility] 33 gauge 01/10/2021 12:00:00 AM EDT misc 100 DIRECTED FOUR TIMES A DAY NEEDED DIRECTED FOUR TIMES A DAY NEEDED SOLD: 02/02/2021 [facility] 33 gauge 01/10/2021 12:00:00 AM EDT misc 100 DIRECTED FOUR TIMES A DAY NEEDED DIRECTED FOUR TIMES A DAY NEEDED SOLD: 01/10/2021 [facility] 0.01 % (0.1 mg/gram) 01/10/2021 12:00:00 AM EDT cream 42 INSERT 1 GRAM VAGINALLY EVERY DAY INSERT 1 GRAM VAGINALLY EVERY DAY SOLD: 01/10/2021 [facility] benzonatate 100 MG Oral Capsule [Tessalon Perles] Maame regan Perles 100 MG Tessalon Perles 100 MG 01/05/2021 12:00:00 AM EDT 1.0 {capsule_as_nee ded} active Tessalon Perles 100 MG eCW1 ([facility]) benzonatate 100 MG Oral Capsule Benzonatate 100 MG Benzonata te 100 MG 01/05/2021 12:00:00 AM EDT 1.0 {capsule_as_needed} suspende d Benzonatate 100 MG eCW1 ([facility]) benzonatate 100 MG Oral Capsule [Tessalon Perles] Maame regan Perles 100 MG Tessalon Perles 100 MG 01/05/2021 12:00:00 AM EDT 1.0 {capsule_as_nee ded} suspended Tessalon Perles 100 MG eCW1 ([facility]) benzonatate 100 MG Oral Capsule Benzonatate 100 MG Benzonata te 100 MG 01/05/2021 12:00:00 AM EDT 1.0 {capsule_as_needed} active Benzonatate 100 MG eCW1 ([facility]) benzonatate 100 MG Oral Capsule [Tessalon Perles] Maame regan Perles 100 MG Tessalon Perles 100 MG 01/05/2021 12:00:00 AM EDT 1.0 {capsule_as_nee ded} active Tessalon Perles 100 MG eCW1 ([facility]) benzonatate 100 MG Oral Capsule [Tessalon Perles] Maame regan Perles 100 MG Tessalon Perles 100 MG 01/05/2021 12:00:00 AM EDT 1.0 {capsule_as_nee ded} active Tessalon Perles 100 MG eCW1 ([facility]) benzonatate 100 MG Oral Capsule Benzonatate 100 MG Benzonata te 100 MG 01/05/2021 12:00:00 AM EDT 1.0 {capsule_as_needed} suspende d Benzonatate 100 MG eCW1 ([facility]) benzonatate 100 MG Oral Capsule BENZONATATE 01/05/2021 12:00:00 AM EDT capsule 9 TAKE ONE CAPSULE BY MOUTH EVERY 8 HOURS NEEDED FOR COUGH TAKE ONE CAPSULE BY MOUTH EVERY 8 HOURS NEEDED FOR COUGH SOLD: 01/10/2021 [facility] benzonatate 100 MG Oral Capsule BENZONATATE 01/05/2021 12:00:00 AM EDT capsule 30 TAKE ONE CAPSULE BY MOUTH EVERY 8 HOURS NEEDED FOR COUGH TAKE ONE CAPSULE BY MOUTH EVERY 8 HOURS NEEDED FOR COUGH SOLD: 01/05/2021 [facility] benzonatate 100 MG Oral Capsule [Tessalon Perles] Maame regan Perles 100 MG Tessalon Perles 100 MG 01/05/2021 12:00:00 AM EDT 1.0 {capsule_as_nee ded} suspended Tessalon Perles 100 MG eCW1 ([facility]) benzonatate 100 MG Oral Capsule [Tessalon Perles] Maame regan Perles 100 MG Tessalon Perles 100 MG 01/05/2021 12:00:00 AM EDT 1.0 {capsule_as_nee ded} active Tessalon Perles 100 MG eCW1 ([facility]) benzonatate 100 MG Oral Capsule Benzonatate 100 MG Benzonata te 100 MG 01/05/2021 12:00:00 AM EDT 1.0 {capsule_as_needed} suspende d Benzonatate 100 MG eCW1 ([facility]) benzonatate 100 MG Oral Capsule [Tessalon Perles] Maame regan Perles 100 MG Tessalon Perles 100 MG 01/05/2021 12:00:00 AM EDT 1.0 {capsule_as_nee ded} suspended Tessalon Perles 100 MG eCW1 ([facility]) benzonatate 100 MG Oral Capsule Benzonatate 100 MG Benzonata te 100 MG 01/05/2021 12:00:00 AM EDT 1.0 {capsule_as_needed} active Benzonatate 100 MG eCW1 ([facility]) benzonatate 100 MG Oral Capsule [Tessalon Perles] Maame regan Perles 100 MG Tessalon Perles 100 MG 01/05/2021 12:00:00 AM EDT 1.0 {capsule_as_nee ded} suspended Tessalon Perles 100 MG eCW1 ([facility]) benzonatate 100 MG Oral Capsule Benzonatate 100 MG Benzonata te 100 MG 01/05/2021 12:00:00 AM EDT 1.0 {capsule_as_needed} suspende d Benzonatate 100 MG eCW1 ([facility]) benzonatate 100 MG Oral Capsule [Tessalon Perles] Maame regan Perles 100 MG Tessalon Perles 100 MG 01/05/2021 12:00:00 AM EDT 1.0 {capsule_as_nee ded} suspended eCW1 ([facility]) benzonatate 100 MG Oral Capsule Benzonatate 100 MG Benzonata te 100 MG 01/05/2021 12:00:00 AM EDT 1.0 {capsule_as_needed} suspended eCW1 ([facility]) benzonatate 100 MG Oral Capsule Benzonatate 100 MG Benzonata te 100 MG 01/05/2021 12:00:00 AM EDT 1.0 {capsule_as_needed} suspende d Benzonatate 100 MG eCW1 ([facility]) benzonatate 100 MG Oral Capsule [Tessalon Perles] Maame regan Perles 100 MG Tessalon Perles 100 MG 01/05/2021 12:00:00 AM EDT 1.0 {capsule_as_nee ded} suspended Tessalon Perles 100 MG eCW1 ([facility]) benzonatate 100 MG Oral Capsule [Tessalon Perles] Maame regan Perles 100 MG Tessalon Perles 100 MG 01/05/2021 12:00:00 AM EDT 1.0 {capsule_as_nee ded} suspended eCW1 ([facility]) benzonatate 100 MG Oral Capsule [Tessalon Perles] Maame regan Perles 100 MG Tessalon Perles 100 MG 01/05/2021 12:00:00 AM EDT 1.0 {capsule_as_nee ded} suspended Tessalon Perles 100 MG eCW1 ([facility]) benzonatate 100 MG Oral Capsule [Tessalon Perles] Maame regan Perles 100 MG Tessalon Perles 100 MG 01/05/2021 12:00:00 AM EDT 1.0 {capsule_as_nee ded} suspended Tessalon Perles 100 MG eCW1 ([facility]) benzonatate 100 MG Oral Capsule Benzonatate 100 MG Benzonata te 100 MG 01/05/2021 12:00:00 AM EDT 1.0 {capsule_as_needed} active Benzonatate 100 MG eCW1 ([facility]) benzonatate 100 MG Oral Capsule [Tessalon Perles] Maame regan Perles 100 MG Tessalon Perles 100 MG 01/05/2021 12:00:00 AM EDT 1.0 {capsule_as_nee ded} suspended Tessalon Perles 100 MG eCW1 ([facility]) benzonatate 100 MG Oral Capsule Benzonatate 100 MG Benzonata te 100 MG 01/05/2021 12:00:00 AM EDT 1.0 {capsule_as_needed} active Benzonatate 100 MG eCW1 ([facility]) benzonatate 100 MG Oral Capsule Benzonatate 100 MG Benzonata te 100 MG 01/05/2021 12:00:00 AM EDT 1.0 {capsule_as_needed} suspende d Benzonatate 100 MG eCW1 ([facility]) benzonatate 100 MG Oral Capsule Benzonatate 100 MG Benzonata te 100 MG 01/05/2021 12:00:00 AM EDT 1.0 {capsule_as_needed} suspended eCW1 ([facility]) benzonatate 100 MG Oral Capsule [Tessalon Perles] Amame regan Perles 100 MG Tessalon Perles 100 MG 01/05/2021 12:00:00 AM EDT 1.0 {capsule_as_nee ded} suspended Tessalon Perles 100 MG eCW1 ([facility]) benzonatate 100 MG Oral Capsule [Tessalon Perles] Maame regan Perles 100 MG Tessalon Perles 100 MG 01/05/2021 12:00:00 AM EDT 1.0 {capsule_as_nee ded} suspended Tessalon Perles 100 MG eCW1 ([facility]) benzonatate 100 MG Oral Capsule [Tessalon Perles] Maame regan Perles 100 MG Tessalon Perles 100 MG 01/05/2021 12:00:00 AM EDT 1.0 {capsule_as_nee ded} suspended Tessalon Perles 100 MG eCW1 ([facility]) benzonatate 100 MG Oral Capsule Benzonatate 100 MG Benzonata te 100 MG 01/05/2021 12:00:00 AM EDT 1.0 {capsule_as_needed} suspende d Benzonatate 100 MG eCW1 ([facility]) benzonatate 100 MG Oral Capsule Benzonatate 100 MG Benzonata te 100 MG 01/05/2021 12:00:00 AM EDT 1.0 {capsule_as_needed} active Benzonatate 100 MG eCW1 ([facility]) benzonatate 100 MG Oral Capsule Benzonatate 100 MG Benzonata te 100 MG 01/05/2021 12:00:00 AM EDT 1.0 {capsule_as_needed} suspende d Benzonatate 100 MG eCW1 ([facility]) benzonatate 100 MG Oral Capsule Benzonatate 100 MG Benzonata te 100 MG 01/05/2021 12:00:00 AM EDT 1.0 {capsule_as_needed} suspende d Benzonatate 100 MG eCW1 ([facility]) benzonatate 100 MG Oral Capsule Benzonatate 100 MG Benzonata te 100 MG 01/05/2021 12:00:00 AM EDT 1.0 {capsule_as_needed} suspende d Benzonatate 100 MG eCW1 ([facility]) benzonatate 100 MG Oral Capsule Benzonatate 100 MG Benzonata te 100 MG 01/05/2021 12:00:00 AM EDT 1.0 {capsule_as_needed} suspende d Benzonatate 100 MG eCW1 ([facility]) benzonatate 100 MG Oral Capsule [Tessalon Perles] Maame regan Perles 100 MG Tessalon Perles 100 MG 01/05/2021 12:00:00 AM EDT 1.0 {capsule_as_nee ded} suspended Tessalon Perles 100 MG eCW1 ([facility]) benzonatate 100 MG Oral Capsule Benzonatate 100 MG Benzonata te 100 MG 01/05/2021 12:00:00 AM EDT 1.0 {capsule_as_needed} suspende d Benzonatate 100 MG eCW1 ([facility]) benzonatate 100 MG Oral Capsule [Tessalon Perles] Maame regan Perles 100 MG Tessalon Perles 100 MG 01/05/2021 12:00:00 AM EDT 1.0 {capsule_as_nee ded} suspended Tessalon Perles 100 MG eCW1 ([facility]) benzonatate 100 MG Oral Capsule Benzonatate 100 MG Benzonata te 100 MG 01/05/2021 12:00:00 AM EDT 1.0 {capsule_as_needed} suspende d Benzonatate 100 MG eCW1 ([facility]) benzonatate 100 MG Oral Capsule [Tessalon Perles] Maame regan Perles 100 MG Tessalon Perles 100 MG 01/05/2021 12:00:00 AM EDT 1.0 {capsule_as_nee ded} suspended Tessalon Perles 100 MG eCW1 ([facility]) benzonatate 100 MG Oral Capsule Benzonatate 100 MG Benzonata te 100 MG 01/05/2021 12:00:00 AM EDT 1.0 {capsule_as_needed} suspende d Benzonatate 100 MG eCW1 ([facility]) benzonatate 100 MG Oral Capsule [Tessalon Perles] Maame regan Perles 100 MG Tessalon Perles 100 MG 01/05/2021 12:00:00 AM EDT 1.0 {capsule_as_nee ded} active Tessalon Perles 100 MG eCW1 ([facility]) benzonatate 100 MG Oral Capsule Benzonatate 100 MG Benzonata te 100 MG 01/05/2021 12:00:00 AM EDT 1.0 {capsule_as_needed} suspende d Benzonatate 100 MG eCW1 ([facility]) 17 gram/dose 01/05/2021 12:00:00 AM EDT powder 238 MIX 17G (1 CAPFUL) IN 8OZ OF WATER & DRINK ONCE DAILY MIX 17G (1 CAPFUL) IN 8OZ OF WATER & DRI NK ONCE DAILY SOLD: 01/05/2021 [facility] benzonatate 100 MG Oral Capsule [Tessalon Perles] Maame regan Perles 100 MG Tessalon Perles 100 MG 01/05/2021 12:00:00 AM EDT 1.0 {capsule_as_nee ded} suspended Tessalon Perles 100 MG eCW1 ([facility]) 2 mg 01/04/2021 12:00:00 AM EDT tablet 20 TAKE 1 TABLET BY MOUTH EVERY SIX HOURS NEEDED FOR PAIN, MAX OF 4 PER DAY TAKE 1 TABLET BY MOUTH EVERY SIX HOURS NEEDED FOR PAIN, MAX OF 4 PER DAY SOLD: 01/04/2021 [facility] 100 unit/mL (3 mL) 01/04/2021 12:00:00 AM EDT insulin pen 15 INJECT 50 UNITS UNDER THE SKIN IN THE MORNING INJECT 50 UNITS UNDER THE SKIN IN THE MORNING SOLD: 02/01/2021 [facility] 100 unit/mL (3 mL) 01/04/2021 12:00:00 AM EDT insulin pen 15 INJECT 50 UNITS UNDER THE SKIN IN THE MORNING INJECT 50 UNITS UNDER THE SKIN IN THE MORNING SOLD: 01/04/2021 [facility] . UNIT 12/21/2020 12:00:00 AM EDT Aerosol 1 DI RECTED DIRECTED SOLD: 12/21/2020 [facility] . UNIT 12/21/2020 12:00:00 AM EDT Aerosol 1 DI RECTED DIRECTED SOLD: 03/18/2021 [facility] 2 mg 12/17/2020 12:00:00 AM EDT tablet 12 TAKE ONE TABLET BY MOUTH EVERY 6 HOURS NEEDED FOR MODERATE PAIN FOR 3 DAYS MAXIMUM DAILY DOSE = 4 TABLETS TAKE ONE TABLET BY MOUTH EVERY 6 HOURS NEEDED FOR MODERATE PAIN FOR 3 DAYS MAXIMUM DAILY DOSE = 4 TABLETS SOLD: 12/18/2020 [facility] 8.6-50 mg 12/17/2020 12:00:00 AM EDT tablet 20 TAKE ONE TABLET BY MOUTH TWICE A DAY FOR 10 DAYS TAKE ONE TABLET BY MOUTH TWICE A DAY FOR 10 DAYS SOLD: 12/18/2020 [facility] Cephalexin 500 MG Oral Capsule CEPHALEXIN 12/17/2020 12:00:00 AM EDT capsule 40 TAKE ONE CAPSULE BY MOUTH FOUR TIMES A DAY FOR 10 DAYS TAKE ONE CAPSULE BY MOUTH FOUR TIMES A DAY FOR 10 DAYS SOLD: 12/18/2020 [facility] 2 mg 12/03/2020 12:00:00 AM EDT tablet 56 TAKE TWO TABLETS BY MOUTH EVERY 6 HOURS NEEDED MAX 4TABS/DAY TO LAST 14 DAYS TAKE TWO TABLETS BY MOUTH EVERY 6 HOURS NEEDED MAX 4TABS/DAY TO LAST 14 DAYS SOLD: 12/03/2020 [facility] 100,000 unit/gram 12/02/2020 12:00:00 AM EDT powder 60 APPLY TO AFFECTED AREA(S) AROUND STOMA 2X/DAY DIRECTED UNTIL HEALED APPLY TO AFFECTED AREA(S) AROUND STOMA 2X/DAY DIRECTED UNTIL HEALED SOLD: 01/08/2021 [facility] 100,000 unit/gram 12/02/2020 12:00:00 AM EDT powder 60 APPLY TO AFFECTED AREA(S) AROUND STOMA 2X/DAY DIRECTED UNTIL HEALED APPLY TO AFFECTED AREA(S) AROUND STOMA 2X/DAY DIRECTED UNTIL HEALED SOLD: 12/27/2020 [facility] 100,000 unit/gram 12/02/2020 12:00:00 AM EDT powder 60 APPLY TO AFFECTED AREA(S) AROUND STOMA 2X/DAY DIRECTED UNTIL HEALED APPLY TO AFFECTED AREA(S) AROUND STOMA 2X/DAY DIRECTED UNTIL HEALED SOLD: 12/15/2020 [facility] 100,000 unit/gram 12/02/2020 12:00:00 AM EDT powder 60 APPLY TO AFFECTED AREA(S) AROUND STOMA 2X/DAY DIRECTED UNTIL HEALED APPLY TO AFFECTED AREA(S) AROUND STOMA 2X/DAY DIRECTED UNTIL HEALED SOLD: 12/03/2020 [facility] Hydromorphone Hydrochloride 2 MG Oral Tablet HYDROmorp nellie HCl 2 MG HYDROmorphone HCl 2 MG 12/01/2020 12:00:00 AM EDT 2.0 {tablet_as_need ed} active HYDROmorphone HCl 2 MG eCW1 ([facility]) Hydromorphone Hydrochloride 2 MG Oral Tablet HYDROmorp nellie HCl 2 MG HYDROmorphone HCl 2 MG 12/01/2020 12:00:00 AM EDT 2.0 {tablet_as_need ed} suspended HYDROmorphone HCl 2 MG eCW1 ([facility]) Hydromorphone Hydrochloride 2 MG Oral Tablet HYDROmorp nellie HCl 2 MG HYDROmorphone HCl 2 MG 12/01/2020 12:00:00 AM EDT 2.0 {tablet_as_need ed} active HYDROmorphone HCl 2 MG eCW1 ([facility]) Hydromorphone Hydrochloride 2 MG Oral Tablet HYDROmorp nellie HCl 2 MG HYDROmorphone HCl 2 MG 12/01/2020 12:00:00 AM EDT 2.0 {tablet_as_need ed} active HYDROmorphone HCl 2 MG eCW1 ([facility]) Hydromorphone Hydrochloride 2 MG Oral Tablet HYDROmorp nellie HCl 2 MG HYDROmorphone HCl 2 MG 12/01/2020 12:00:00 AM EDT 2.0 {tablet_as_need ed} suspended HYDROmorphone HCl 2 MG eCW1 ([facility]) Hydromorphone Hydrochloride 2 MG Oral Tablet HYDROmorp nellie HCl 2 MG HYDROmorphone HCl 2 MG 12/01/2020 12:00:00 AM EDT 2.0 {tablet_as_need ed} active HYDROmorphone HCl 2 MG eCW1 ([facility]) Hydromorphone Hydrochloride 2 MG Oral Tablet HYDROmorp nellie HCl 2 MG HYDROmorphone HCl 2 MG 12/01/2020 12:00:00 AM EDT 2.0 {tablet_as_need ed} suspended eCW1 ([facility]) Hydromorphone Hydrochloride 2 MG Oral Tablet HYDROmorp nellie HCl 2 MG HYDROmorphone HCl 2 MG 12/01/2020 12:00:00 AM EDT 2.0 {tablet_as_need ed} suspended HYDROmorphone HCl 2 MG eCW1 ([facility]) Hydromorphone Hydrochloride 2 MG Oral Tablet HYDROmorp nellie HCl 2 MG HYDROmorphone HCl 2 MG 12/01/2020 12:00:00 AM EDT 2.0 {tablet_as_need ed} active HYDROmorphone HCl 2 MG eCW1 ([facility]) Hydromorphone Hydrochloride 2 MG Oral Tablet HYDROmorp nellie HCl 2 MG HYDROmorphone HCl 2 MG 12/01/2020 12:00:00 AM EDT 2.0 {tablet_as_need ed} active HYDROmorphone HCl 2 MG eCW1 ([facility]) Hydromorphone Hydrochloride 2 MG Oral Tablet HYDROmorp nellie HCl 2 MG HYDROmorphone HCl 2 MG 12/01/2020 12:00:00 AM EDT 2.0 {tablet_as_need ed} suspended HYDROmorphone HCl 2 MG eCW1 ([facility]) Hydromorphone Hydrochloride 2 MG Oral Tablet HYDROmorp nellie HCl 2 MG HYDROmorphone HCl 2 MG 12/01/2020 12:00:00 AM EDT 2.0 {tablet_as_need ed} suspended HYDROmorphone HCl 2 MG eCW1 ([facility]) Hydromorphone Hydrochloride 2 MG Oral Tablet HYDROmorp nellie HCl 2 MG HYDROmorphone HCl 2 MG 12/01/2020 12:00:00 AM EDT 2.0 {tablet_as_need ed} active HYDROmorphone HCl 2 MG eCW1 ([facility]) Hydromorphone Hydrochloride 2 MG Oral Tablet HYDROmorp nellie HCl 2 MG HYDROmorphone HCl 2 MG 12/01/2020 12:00:00 AM EDT 2.0 {tablet_as_need ed} suspended HYDROmorphone HCl 2 MG eCW1 ([facility]) Hydromorphone Hydrochloride 2 MG Oral Tablet HYDROmorp nellie HCl 2 MG HYDROmorphone HCl 2 MG 12/01/2020 12:00:00 AM EDT 2.0 {tablet_as_need ed} suspended HYDROmorphone HCl 2 MG eCW1 ([facility]) Hydromorphone Hydrochloride 2 MG Oral Tablet HYDROmorp nellie HCl 2 MG HYDROmorphone HCl 2 MG 12/01/2020 12:00:00 AM EDT 2.0 {tablet_as_need ed} active HYDROmorphone HCl 2 MG eCW1 ([facility]) Hydromorphone Hydrochloride 2 MG Oral Tablet HYDROmorp nellie HCl 2 MG HYDROmorphone HCl 2 MG 12/01/2020 12:00:00 AM EDT 2.0 {tablet_as_need ed} active HYDROmorphone HCl 2 MG eCW1 ([facility]) Hydromorphone Hydrochloride 2 MG Oral Tablet HYDROmorp nellie HCl 2 MG HYDROmorphone HCl 2 MG 12/01/2020 12:00:00 AM EDT 2.0 {tablet_as_need ed} active HYDROmorphone HCl 2 MG eCW1 ([facility]) Hydromorphone Hydrochloride 2 MG Oral Tablet HYDROmorp nellie HCl 2 MG HYDROmorphone HCl 2 MG 12/01/2020 12:00:00 AM EDT 2.0 {tablet_as_need ed} active HYDROmorphone HCl 2 MG eCW1 ([facility]) Hydromorphone Hydrochloride 2 MG Oral Tablet HYDROmorp nellie HCl 2 MG HYDROmorphone HCl 2 MG 12/01/2020 12:00:00 AM EDT 2.0 {tablet_as_need ed} suspended HYDROmorphone HCl 2 MG eCW1 ([facility]) Hydromorphone Hydrochloride 2 MG Oral Tablet HYDROmorp nellie HCl 2 MG HYDROmorphone HCl 2 MG 12/01/2020 12:00:00 AM EDT 2.0 {tablet_as_need ed} suspended HYDROmorphone HCl 2 MG eCW1 ([facility]) Hydromorphone Hydrochloride 2 MG Oral Tablet HYDROmorp nellie HCl 2 MG HYDROmorphone HCl 2 MG 12/01/2020 12:00:00 AM EDT 2.0 {tablet_as_need ed} suspended HYDROmorphone HCl 2 MG eCW1 ([facility]) Hydromorphone Hydrochloride 2 MG Oral Tablet HYDROmorp nellie HCl 2 MG HYDROmorphone HCl 2 MG 12/01/2020 12:00:00 AM EDT 2.0 {tablet_as_need ed} suspended HYDROmorphone HCl 2 MG eCW1 ([facility]) Hydromorphone Hydrochloride 2 MG Oral Tablet HYDROmorp nellie HCl 2 MG HYDROmorphone HCl 2 MG 12/01/2020 12:00:00 AM EDT 2.0 {tablet_as_need ed} suspended HYDROmorphone HCl 2 MG eCW1 ([facility]) Hydromorphone Hydrochloride 2 MG Oral Tablet HYDROmorp nellie HCl 2 MG HYDROmorphone HCl 2 MG 12/01/2020 12:00:00 AM EDT 2.0 {tablet_as_need ed} suspended HYDROmorphone HCl 2 MG eCW1 ([facility]) Hydromorphone Hydrochloride 2 MG Oral Tablet HYDROmorp nellie HCl 2 MG HYDROmorphone HCl 2 MG 12/01/2020 12:00:00 AM EDT 2.0 {tablet_as_need ed} active HYDROmorphone HCl 2 MG eCW1 ([facility]) Hydromorphone Hydrochloride 2 MG Oral Tablet HYDROmorp nellie HCl 2 MG HYDROmorphone HCl 2 MG 12/01/2020 12:00:00 AM EDT 2.0 {tablet_as_need ed} suspended eCW1 ([facility]) Hydromorphone Hydrochloride 2 MG Oral Tablet HYDROmorp nellie HCl 2 MG HYDROmorphone HCl 2 MG 12/01/2020 12:00:00 AM EDT 2.0 {tablet_as_need ed} suspended HYDROmorphone HCl 2 MG eCW1 ([facility]) Hydromorphone Hydrochloride 2 MG Oral Tablet HYDROmorp nellei HCl 2 MG HYDROmorphone HCl 2 MG 12/01/2020 12:00:00 AM EDT 2.0 {tablet_as_need ed} suspended HYDROmorphone HCl 2 MG eCW1 ([facility]) Hydromorphone Hydrochloride 2 MG Oral Tablet HYDROmorp nellie HCl 2 MG HYDROmorphone HCl 2 MG 12/01/2020 12:00:00 AM EDT 2.0 {tablet_as_need ed} active HYDROmorphone HCl 2 MG eCW1 ([facility]) 2 mg 11/25/2020 12:00:00 AM EDT tablet 56 TAKE 2 TABLETS BY MOUTH EVERY 6HOURS NEEDED MAX DAILY DOSE=4(TO LAST 14 DAYS) TAKE 2 TABLETS BY MOUTH EVERY 6HOURS NEEDED MAX DAILY DOSE=4(TO LAST 14 DAYS) SOLD: 11/25/2020 [facility] Hydromorphone Hydrochloride 2 MG Oral Tablet HYDROmorp nellie HCl 2 MG HYDROmorphone HCl 2 MG 11/24/2020 12:00:00 AM EDT 2.0 {tablet_as_need ed} active HYDROmorphone HCl 2 MG eCW1 ([facility]) 1 gram 11/15/2020 12:00:00 AM EDT tablet 60 TAKE ONE TABLET BY MOUTH TWICE A DAY ON EMPTY STOMACH TAKE ONE TABLET BY MOUTH TWICE A DAY ON EMPTY STOMACH SOLD: 11/15/2020 [facility] Hydromorphone Hydrochloride 2 MG Oral Tablet HYDROmorp nellie HCl 2 MG HYDROmorphone HCl 2 MG 11/15/2020 12:00:00 AM EDT 2.0 {tablet_as_need ed} suspended HYDROmorphone HCl 2 MG eCW1 ([facility]) Hydromorphone Hydrochloride 2 MG Oral Tablet HYDROmorp nellie HCl 2 MG HYDROmorphone HCl 2 MG 11/15/2020 12:00:00 AM EDT 2.0 {tablet_as_need ed} active HYDROmorphone HCl 2 MG eCW1 ([facility]) Hydromorphone Hydrochloride 2 MG Oral Tablet HYDROmorp nellie HCl 2 MG HYDROmorphone HCl 2 MG 11/15/2020 12:00:00 AM EDT 2.0 {tablets_as_nee ded} suspended eCW1 ([facility]) Hydromorphone Hydrochloride 2 MG Oral Tablet HYDROmorp nellie HCl 2 MG HYDROmorphone HCl 2 MG 11/15/2020 12:00:00 AM EDT 2.0 {tablet_as_need ed} active HYDROmorphone HCl 2 MG eCW1 ([facility]) Hydromorphone Hydrochloride 2 MG Oral Tablet HYDROmorp nellie HCl 2 MG HYDROmorphone HCl 2 MG 11/15/2020 12:00:00 AM EDT 2.0 {tablet_as_need ed} active HYDROmorphone HCl 2 MG eCW1 ([facility]) Hydromorphone Hydrochloride 2 MG Oral Tablet HYDROmorp nellie HCl 2 MG HYDROmorphone HCl 2 MG 11/15/2020 12:00:00 AM EDT 2.0 {tablet_as_need ed} suspended HYDROmorphone HCl 2 MG eCW1 ([facility]) Hydromorphone Hydrochloride 2 MG Oral Tablet HYDROmorp nellie HCl 2 MG HYDROmorphone HCl 2 MG 11/15/2020 12:00:00 AM EDT 2.0 {tablet_as_need ed} active HYDROmorphone HCl 2 MG eCW1 ([facility]) Hydromorphone Hydrochloride 2 MG Oral Tablet HYDROmorp nellie HCl 2 MG HYDROmorphone HCl 2 MG 11/15/2020 12:00:00 AM EDT 2.0 {tablet_as_need ed} suspended HYDROmorphone HCl 2 MG eCW1 ([facility]) 1 gram 11/15/2020 12:00:00 AM EDT tablet 60 TAKE ONE TABLET BY MOUTH TWICE A DAY ON EMPTY STOMACH TAKE ONE TABLET BY MOUTH TWICE A DAY ON EMPTY STOMACH SOLD: 12/13/2020 [facility] 50 mcg/actuation 11/15/2020 12:00:00 AM EDT spray,non-aeroso l 17 SPRAY TWO SPRAYS IN EACH NOSTRIL EVERY DAY SPRAY TWO SPRAYS IN EACH NOSTRIL EVERY DAY SOLD: 12/13/2020 [facility] Hydromorphone Hydrochloride 2 MG Oral Tablet HYDROmorp nellie HCl 2 MG HYDROmorphone HCl 2 MG 11/15/2020 12:00:00 AM EDT 2.0 {tablet_as_need ed} suspended HYDROmorphone HCl 2 MG eCW1 ([facility]) Hydromorphone Hydrochloride 2 MG Oral Tablet HYDROmorp nellie HCl 2 MG HYDROmorphone HCl 2 MG 11/15/2020 12:00:00 AM EDT 2.0 {tablets_as_nee ded} active HYDROmorphone HCl 2 MG eCW1 ([facility]) Hydromorphone Hydrochloride 2 MG Oral Tablet HYDROmorp nellie HCl 2 MG HYDROmorphone HCl 2 MG 11/15/2020 12:00:00 AM EDT 2.0 {tablets_as_nee ded} active HYDROmorphone HCl 2 MG eCW1 ([facility]) Hydromorphone Hydrochloride 2 MG Oral Tablet HYDROmorp nellie HCl 2 MG HYDROmorphone HCl 2 MG 11/15/2020 12:00:00 AM EDT 2.0 {tablets_as_nee ded} suspended HYDROmorphone HCl 2 MG eCW1 ([facility]) Hydromorphone Hydrochloride 2 MG Oral Tablet HYDROmorp nellie HCl 2 MG HYDROmorphone HCl 2 MG 11/15/2020 12:00:00 AM EDT 2.0 {tablet_as_need ed} active HYDROmorphone HCl 2 MG eCW1 ([facility]) Hydromorphone Hydrochloride 2 MG Oral Tablet HYDROmorp nellie HCl 2 MG HYDROmorphone HCl 2 MG 11/15/2020 12:00:00 AM EDT 2.0 {tablet_as_need ed} active HYDROmorphone HCl 2 MG eCW1 ([facility]) Hydromorphone Hydrochloride 2 MG Oral Tablet HYDROmorp nellie HCl 2 MG HYDROmorphone HCl 2 MG 11/15/2020 12:00:00 AM EDT 2.0 {tablets_as_nee ded} suspended HYDROmorphone HCl 2 MG eCW1 ([facility]) Hydromorphone Hydrochloride 2 MG Oral Tablet HYDROmorp nellie HCl 2 MG HYDROmorphone HCl 2 MG 11/15/2020 12:00:00 AM EDT 2.0 {tablets_as_nee ded} suspended HYDROmorphone HCl 2 MG eCW1 ([facility]) Hydromorphone Hydrochloride 2 MG Oral Tablet HYDROmorp nellie HCl 2 MG HYDROmorphone HCl 2 MG 11/15/2020 12:00:00 AM EDT 2.0 {tablet_as_need ed} suspended HYDROmorphone HCl 2 MG eCW1 ([facility]) 50 mcg/actuation 11/15/2020 12:00:00 AM EDT spray,non-aeroso l 17 SPRAY TWO SPRAYS IN EACH NOSTRIL EVERY DAY SPRAY TWO SPRAYS IN EACH NOSTRIL EVERY DAY SOLD: 11/15/2020 [facility] Hydromorphone Hydrochloride 2 MG Oral Tablet HYDROmorp nellie HCl 2 MG HYDROmorphone HCl 2 MG 11/15/2020 12:00:00 AM EDT 2.0 {tablets_as_nee ded} suspended HYDROmorphone HCl 2 MG eCW1 ([facility]) Hydromorphone Hydrochloride 2 MG Oral Tablet HYDROmorp nellie HCl 2 MG HYDROmorphone HCl 2 MG 11/15/2020 12:00:00 AM EDT 2.0 {tablets_as_nee ded} suspended HYDROmorphone HCl 2 MG eCW1 ([facility]) Hydromorphone Hydrochloride 2 MG Oral Tablet HYDROmorp nellie HCl 2 MG HYDROmorphone HCl 2 MG 11/15/2020 12:00:00 AM EDT 2.0 {tablets_as_nee ded} active HYDROmorphone HCl 2 MG eCW1 ([facility]) Hydromorphone Hydrochloride 2 MG Oral Tablet HYDROmorp nellie HCl 2 MG HYDROmorphone HCl 2 MG 11/15/2020 12:00:00 AM EDT 2.0 {tablet_as_need ed} active HYDROmorphone HCl 2 MG eCW1 ([facility]) Hydromorphone Hydrochloride 2 MG Oral Tablet HYDROmorp nellie HCl 2 MG HYDROmorphone HCl 2 MG 11/15/2020 12:00:00 AM EDT 2.0 {tablets_as_nee ded} suspended HYDROmorphone HCl 2 MG eCW1 ([facility]) Hydromorphone Hydrochloride 2 MG Oral Tablet HYDROmorp nellie HCl 2 MG HYDROmorphone HCl 2 MG 11/15/2020 12:00:00 AM EDT 2.0 {tablet_as_need ed} active HYDROmorphone HCl 2 MG eCW1 ([facility]) Hydromorphone Hydrochloride 2 MG Oral Tablet HYDROmorp nellie HCl 2 MG HYDROmorphone HCl 2 MG 11/15/2020 12:00:00 AM EDT 2.0 {tablets_as_nee ded} active HYDROmorphone HCl 2 MG eCW1 ([facility]) Hydromorphone Hydrochloride 2 MG Oral Tablet HYDROmorp nellie HCl 2 MG HYDROmorphone HCl 2 MG 11/15/2020 12:00:00 AM EDT 2.0 {tablets_as_nee ded} active HYDROmorphone HCl 2 MG eCW1 ([facility]) Hydromorphone Hydrochloride 2 MG Oral Tablet HYDROmorp nellie HCl 2 MG HYDROmorphone HCl 2 MG 11/15/2020 12:00:00 AM EDT 2.0 {tablet_as_need ed} suspended HYDROmorphone HCl 2 MG eCW1 ([facility]) Hydromorphone Hydrochloride 2 MG Oral Tablet HYDROmorp nellie HCl 2 MG HYDROmorphone HCl 2 MG 11/15/2020 12:00:00 AM EDT 2.0 {tablets_as_nee ded} active HYDROmorphone HCl 2 MG eCW1 ([facility]) 31 gauge x 5/16" 11/15/2020 12:00:00 AM EDT needle 100 USE DIRECTED UNDER THE SKIN TWO TIMES A DAY USE DIRECTED UNDER THE SKIN TWO TIMES A DAY SOLD: 11/15/2020 [facility] 50 mcg/actuation 11/15/2020 12:00:00 AM EDT spray,non-aeroso l 17 SPRAY TWO SPRAYS IN EACH NOSTRIL EVERY DAY SPRAY TWO SPRAYS IN EACH NOSTRIL EVERY DAY SOLD: 01/10/2021 [facility] Hydromorphone Hydrochloride 2 MG Oral Tablet HYDROmorp nellie HCl 2 MG HYDROmorphone HCl 2 MG 11/15/2020 12:00:00 AM EDT 2.0 {tablets_as_nee ded} active HYDROmorphone HCl 2 MG eCW1 ([facility]) Hydromorphone Hydrochloride 2 MG Oral Tablet HYDROmorp nellie HCl 2 MG HYDROmorphone HCl 2 MG 11/15/2020 12:00:00 AM EDT 2.0 {tablets_as_nee ded} suspended HYDROmorphone HCl 2 MG eCW1 ([facility]) Hydromorphone Hydrochloride 2 MG Oral Tablet HYDROmorp nellie HCl 2 MG HYDROmorphone HCl 2 MG 11/15/2020 12:00:00 AM EDT 2.0 {tablet_as_need ed} active HYDROmorphone HCl 2 MG eCW1 ([facility]) Hydromorphone Hydrochloride 2 MG Oral Tablet HYDROmorp nellie HCl 2 MG HYDROmorphone HCl 2 MG 11/15/2020 12:00:00 AM EDT 2.0 {tablets_as_nee ded} active HYDROmorphone HCl 2 MG eCW1 ([facility]) Hydromorphone Hydrochloride 2 MG Oral Tablet HYDROmorp nellie HCl 2 MG HYDROmorphone HCl 2 MG 11/15/2020 12:00:00 AM EDT 2.0 {tablets_as_nee ded} active HYDROmorphone HCl 2 MG eCW1 ([facility]) Hydromorphone Hydrochloride 2 MG Oral Tablet HYDROmorp nellie HCl 2 MG HYDROmorphone HCl 2 MG 11/15/2020 12:00:00 AM EDT 2.0 {tablets_as_nee ded} active HYDROmorphone HCl 2 MG eCW1 ([facility]) Hydromorphone Hydrochloride 2 MG Oral Tablet HYDROmorp nellie HCl 2 MG HYDROmorphone HCl 2 MG 11/15/2020 12:00:00 AM EDT 2.0 {tablet_as_need ed} suspended HYDROmorphone HCl 2 MG eCW1 ([facility]) Hydromorphone Hydrochloride 2 MG Oral Tablet HYDROmorp nellie HCl 2 MG HYDROmorphone HCl 2 MG 11/15/2020 12:00:00 AM EDT 2.0 {tablets_as_nee ded} active HYDROmorphone HCl 2 MG eCW1 ([facility]) Hydromorphone Hydrochloride 2 MG Oral Tablet HYDROmorp nellie HCl 2 MG HYDROmorphone HCl 2 MG 11/15/2020 12:00:00 AM EDT 2.0 {tablets_as_nee ded} suspended HYDROmorphone HCl 2 MG eCW1 ([facility]) Hydromorphone Hydrochloride 2 MG Oral Tablet HYDROmorp nellie HCl 2 MG HYDROmorphone HCl 2 MG 11/15/2020 12:00:00 AM EDT 2.0 {tablets_as_nee ded} suspended HYDROmorphone HCl 2 MG eCW1 ([facility]) Hydromorphone Hydrochloride 2 MG Oral Tablet HYDROmorp nellie HCl 2 MG HYDROmorphone HCl 2 MG 11/15/2020 12:00:00 AM EDT 2.0 {tablets_as_nee ded} suspended HYDROmorphone HCl 2 MG eCW1 ([facility]) Hydromorphone Hydrochloride 2 MG Oral Tablet HYDROmorp nellie HCl 2 MG HYDROmorphone HCl 2 MG 11/15/2020 12:00:00 AM EDT 2.0 {tablets_as_nee ded} active HYDROmorphone HCl 2 MG eCW1 ([facility]) Hydromorphone Hydrochloride 2 MG Oral Tablet HYDROmorp nellie HCl 2 MG HYDROmorphone HCl 2 MG 11/15/2020 12:00:00 AM EDT 2.0 {tablets_as_nee ded} active HYDROmorphone HCl 2 MG eCW1 ([facility]) 2 mg 11/15/2020 12:00:00 AM EDT tablet 56 TAKE 2 TABLETS BY MOUTH EVERY 6 HOURS NEEDED MAX DAILY DOSE = 8 TABLETS TAKE 2 TABLETS BY MOUTH EVERY 6 HOURS NEEDED MAX DAILY DOSE = 8 TABLETS SOLD: 11/15/2020 [facility] Hydromorphone Hydrochloride 2 MG Oral Tablet HYDROmorp nellie HCl 2 MG HYDROmorphone HCl 2 MG 11/15/2020 12:00:00 AM EDT 2.0 {tablets_as_nee ded} active HYDROmorphone HCl 2 MG eCW1 ([facility]) Hydromorphone Hydrochloride 2 MG Oral Tablet HYDROmorp nellie HCl 2 MG HYDROmorphone HCl 2 MG 11/15/2020 12:00:00 AM EDT 2.0 {tablet_as_need ed} active HYDROmorphone HCl 2 MG eCW1 ([facility]) Hydromorphone Hydrochloride 2 MG Oral Tablet HYDROmorp nellie HCl 2 MG HYDROmorphone HCl 2 MG 11/15/2020 12:00:00 AM EDT 2.0 {tablets_as_nee ded} suspended eCW1 ([facility]) Hydromorphone Hydrochloride 2 MG Oral Tablet HYDROmorp nellie HCl 2 MG HYDROmorphone HCl 2 MG 11/15/2020 12:00:00 AM EDT 2.0 {tablet_as_need ed} active HYDROmorphone HCl 2 MG eCW1 ([facility]) Hydromorphone Hydrochloride 2 MG Oral Tablet HYDROmorp nellie HCl 2 MG HYDROmorphone HCl 2 MG 11/15/2020 12:00:00 AM EDT 2.0 {tablet_as_need ed} active HYDROmorphone HCl 2 MG eCW1 ([facility]) Hydromorphone Hydrochloride 2 MG Oral Tablet HYDROmorp nellie HCl 2 MG HYDROmorphone HCl 2 MG 11/15/2020 12:00:00 AM EDT 2.0 {tablet_as_need ed} active HYDROmorphone HCl 2 MG eCW1 ([facility]) Hydromorphone Hydrochloride 2 MG Oral Tablet HYDROmorp nellie HCl 2 MG HYDROmorphone HCl 2 MG 11/15/2020 12:00:00 AM EDT 2.0 {tablets_as_nee ded} active HYDROmorphone HCl 2 MG eCW1 ([facility]) Hydromorphone Hydrochloride 2 MG Oral Tablet HYDROmorp nellie HCl 2 MG HYDROmorphone HCl 2 MG 11/15/2020 12:00:00 AM EDT 2.0 {tablets_as_nee ded} active HYDROmorphone HCl 2 MG eCW1 ([facility]) Hydromorphone Hydrochloride 2 MG Oral Tablet HYDROmorp nellie HCl 2 MG HYDROmorphone HCl 2 MG 11/15/2020 12:00:00 AM EDT 2.0 {tablet_as_need ed} active HYDROmorphone HCl 2 MG eCW1 ([facility]) Hydromorphone Hydrochloride 2 MG Oral Tablet HYDROmorp nellie HCl 2 MG HYDROmorphone HCl 2 MG 11/15/2020 12:00:00 AM EDT 2.0 {tablet_as_need ed} active HYDROmorphone HCl 2 MG eCW1 ([facility]) Hydromorphone Hydrochloride 2 MG Oral Tablet HYDROmorp nellie HCl 2 MG HYDROmorphone HCl 2 MG 11/15/2020 12:00:00 AM EDT 2.0 {tablet_as_need ed} active HYDROmorphone HCl 2 MG eCW1 ([facility]) Hydromorphone Hydrochloride 2 MG Oral Tablet HYDROmorp nellie HCl 2 MG HYDROmorphone HCl 2 MG 11/15/2020 12:00:00 AM EDT 2.0 {tablet_as_need ed} active eCW1 ([facility]) Hydromorphone Hydrochloride 2 MG Oral Tablet HYDROmorp nellie HCl 2 MG HYDROmorphone HCl 2 MG 11/15/2020 12:00:00 AM EDT 2.0 {tablets_as_nee ded} active eCW1 ([facility]) Hydromorphone Hydrochloride 2 MG Oral Tablet HYDROmorp nellie HCl 2 MG HYDROmorphone HCl 2 MG 11/15/2020 12:00:00 AM EDT 2.0 {tablets_as_nee ded} suspended HYDROmorphone HCl 2 MG eCW1 ([facility]) Hydromorphone Hydrochloride 2 MG Oral Tablet HYDROmorp nellie HCl 2 MG HYDROmorphone HCl 2 MG 11/15/2020 12:00:00 AM EDT 2.0 {tablets_as_nee ded} suspended HYDROmorphone HCl 2 MG eCW1 ([facility]) Hydromorphone Hydrochloride 2 MG Oral Tablet HYDROmorp nellie HCl 2 MG HYDROmorphone HCl 2 MG 11/15/2020 12:00:00 AM EDT 2.0 {tablet_as_need ed} active HYDROmorphone HCl 2 MG eCW1 ([facility]) Hydromorphone Hydrochloride 2 MG Oral Tablet HYDROmorp nellie HCl 2 MG HYDROmorphone HCl 2 MG 11/15/2020 12:00:00 AM EDT 2.0 {tablets_as_nee ded} suspended HYDROmorphone HCl 2 MG eCW1 ([facility]) 1 gram 11/15/2020 12:00:00 AM EDT tablet 60 TAKE ONE TABLET BY MOUTH TWICE A DAY ON EMPTY STOMACH TAKE ONE TABLET BY MOUTH TWICE A DAY ON EMPTY STOMACH SOLD: 03/09/2021 [facility] 1 gram 11/15/2020 12:00:00 AM EDT tablet 60 TAKE ONE TABLET BY MOUTH TWICE A DAY ON EMPTY STOMACH TAKE ONE TABLET BY MOUTH TWICE A DAY ON EMPTY STOMACH SOLD: 01/10/2021 [facility] Hydromorphone Hydrochloride 2 MG Oral Tablet HYDROmorp nellie HCl 2 MG HYDROmorphone HCl 2 MG 11/15/2020 12:00:00 AM EDT 2.0 {tablets_as_nee ded} active HYDROmorphone HCl 2 MG eCW1 ([facility]) Hydromorphone Hydrochloride 2 MG Oral Tablet HYDROmorp nellie HCl 2 MG HYDROmorphone HCl 2 MG 11/15/2020 12:00:00 AM EDT 2.0 {tablet_as_need ed} active HYDROmorphone HCl 2 MG eCW1 ([facility]) Hydromorphone Hydrochloride 2 MG Oral Tablet HYDROmorp nellie HCl 2 MG HYDROmorphone HCl 2 MG 11/15/2020 12:00:00 AM EDT 2.0 {tablet_as_need ed} suspended HYDROmorphone HCl 2 MG eCW1 ([facility]) Hydromorphone Hydrochloride 2 MG Oral Tablet HYDROmorp nellie HCl 2 MG HYDROmorphone HCl 2 MG 11/15/2020 12:00:00 AM EDT 2.0 {tablet_as_need ed} active HYDROmorphone HCl 2 MG eCW1 ([facility]) Hydromorphone Hydrochloride 2 MG Oral Tablet HYDROmorp nellie HCl 2 MG HYDROmorphone HCl 2 MG 11/15/2020 12:00:00 AM EDT 2.0 {tablet_as_need ed} suspended HYDROmorphone HCl 2 MG eCW1 ([facility]) Hydromorphone Hydrochloride 2 MG Oral Tablet HYDROmorp nellie HCl 2 MG HYDROmorphone HCl 2 MG 11/15/2020 12:00:00 AM EDT 2.0 {tablet_as_need ed} suspended HYDROmorphone HCl 2 MG eCW1 ([facility]) Hydromorphone Hydrochloride 2 MG Oral Tablet HYDROmorp nellie HCl 2 MG HYDROmorphone HCl 2 MG 11/15/2020 12:00:00 AM EDT 2.0 {tablet_as_need ed} suspended HYDROmorphone HCl 2 MG eCW1 ([facility]) Hydromorphone Hydrochloride 2 MG Oral Tablet HYDROmorp nellie HCl 2 MG HYDROmorphone HCl 2 MG 11/15/2020 12:00:00 AM EDT 2.0 {tablet_as_need ed} active HYDROmorphone HCl 2 MG eCW1 ([facility]) Hydromorphone Hydrochloride 2 MG Oral Tablet HYDROmorp nellie HCl 2 MG HYDROmorphone HCl 2 MG 11/15/2020 12:00:00 AM EDT 2.0 {tablets_as_nee ded} suspended HYDROmorphone HCl 2 MG eCW1 ([facility]) Hydromorphone Hydrochloride 2 MG Oral Tablet HYDROmorp nellie HCl 2 MG HYDROmorphone HCl 2 MG 11/15/2020 12:00:00 AM EDT 2.0 {tablet_as_need ed} active HYDROmorphone HCl 2 MG eCW1 ([facility]) Hydromorphone Hydrochloride 2 MG Oral Tablet HYDROmorp nellie HCl 2 MG HYDROmorphone HCl 2 MG 11/15/2020 12:00:00 AM EDT 2.0 {tablet_as_need ed} active eCW1 ([facility]) Hydromorphone Hydrochloride 2 MG Oral Tablet HYDROmorp nellie HCl 2 MG HYDROmorphone HCl 2 MG 11/15/2020 12:00:00 AM EDT 2.0 {tablet_as_need ed} active HYDROmorphone HCl 2 MG eCW1 ([facility]) Hydromorphone Hydrochloride 2 MG Oral Tablet HYDROmorp nellie HCl 2 MG HYDROmorphone HCl 2 MG 11/15/2020 12:00:00 AM EDT 2.0 {tablets_as_nee ded} active HYDROmorphone HCl 2 MG eCW1 ([facility]) Hydromorphone Hydrochloride 2 MG Oral Tablet HYDROmorp nellie HCl 2 MG HYDROmorphone HCl 2 MG 11/15/2020 12:00:00 AM EDT 2.0 {tablet_as_need ed} active HYDROmorphone HCl 2 MG eCW1 ([facility]) Hydromorphone Hydrochloride 2 MG Oral Tablet HYDROmorp nellie HCl 2 MG HYDROmorphone HCl 2 MG 11/15/2020 12:00:00 AM EDT 2.0 {tablets_as_nee ded} active HYDROmorphone HCl 2 MG eCW1 ([facility]) 1 gram 11/15/2020 12:00:00 AM EDT tablet 60 TAKE ONE TABLET BY MOUTH TWICE A DAY ON EMPTY STOMACH TAKE ONE TABLET BY MOUTH TWICE A DAY ON EMPTY STOMACH SOLD: 02/09/2021 [facility] Hydromorphone Hydrochloride 2 MG Oral Tablet HYDROmorp nellie HCl 2 MG HYDROmorphone HCl 2 MG 11/15/2020 12:00:00 AM EDT 2.0 {tablet_as_need ed} active HYDROmorphone HCl 2 MG eCW1 ([facility]) Hydromorphone Hydrochloride 2 MG Oral Tablet HYDROmorp nellie HCl 2 MG HYDROmorphone HCl 2 MG 11/15/2020 12:00:00 AM EDT 2.0 {tablets_as_nee ded} suspended HYDROmorphone HCl 2 MG eCW1 ([facility]) 25 mcg (1,000 unit) 11/06/2020 12:00:00 AM EDT tablet 30 TAKE 1 TABLET BY MOUTH EVERY DAY TAKE 1 TABLET BY MOUTH EVERY DAY SOLD: 02/26/2021 [facility] 25 mcg (1,000 unit) 11/06/2020 12:00:00 AM EDT tablet 30 TAKE 1 TABLET BY MOUTH EVERY DAY TAKE 1 TABLET BY MOUTH EVERY DAY SOLD: 11/06/2020 [facility] 25 mcg (1,000 unit) 11/06/2020 12:00:00 AM EDT tablet 30 TAKE 1 TABLET BY MOUTH EVERY DAY TAKE 1 TABLET BY MOUTH EVERY DAY SOLD: 12/04/2020 [facility] 25 mcg (1,000 unit) 11/06/2020 12:00:00 AM EDT tablet 30 TAKE 1 TABLET BY MOUTH EVERY DAY TAKE 1 TABLET BY MOUTH EVERY DAY SOLD: 01/01/2021 [facility] 25 mcg (1,000 unit) 11/06/2020 12:00:00 AM EDT tablet 30 TAKE 1 TABLET BY MOUTH EVERY DAY TAKE 1 TABLET BY MOUTH EVERY DAY SOLD: 01/29/2021 [facility] Medipore H Surgical 4"x10yd - Medipore H Surgical 4"x10yd - 11/03/2020 12:00:00 AM EDT active Medipore H Surgic al 4"x10yd - eCW1 ([facility]) Medipore H Surgical 4"x10yd - Medipore H Surgical 4"x10yd - 11/03/2020 12:00:00 AM EDT active eCW1 ([facility]) Mupirocin 0.02 MG/MG Topical Ointment Mupirocin 2 % Mupiroci n 2 % 11/03/2020 12:00:00 AM EDT active Mupiroci n 2 % eCW1 ([facility]) Mupirocin 0.02 MG/MG Topical Ointment Mupirocin 2 % Mupiroci n 2 % 11/03/2020 12:00:00 AM EDT active e CW1 ([facility]) Mupirocin 0.02 MG/MG Topical Ointment Mupirocin 2 % Mupiroci n 2 % 11/03/2020 12:00:00 AM EDT active Mupiroci n 2 % eCW1 ([facility]) Medipore H Surgical 4"x10yd - Medipore H Surgical 4"x10yd - 11/03/2020 12:00:00 AM EDT active Medipore H Surgic al 4"x10yd - eCW1 ([facility]) Mupirocin 0.02 MG/MG Topical Ointment Mupirocin 2 % Mupiroci n 2 % 11/03/2020 12:00:00 AM EDT active Mupiroci n 2 % eCW1 ([facility]) Mupirocin 0.02 MG/MG Topical Ointment Mupirocin 2 % Mupiroci n 2 % 11/03/2020 12:00:00 AM EDT active Mupiroci n 2 % eCW1 ([facility]) Medipore H Surgical 4"x10yd - Medipore H Surgical 4"x10yd - 11/03/2020 12:00:00 AM EDT active Medipore H Surgic al 4"x10yd - eCW1 ([facility]) Mupirocin 0.02 MG/MG Topical Ointment Mupirocin 2 % Mupiroci n 2 % 11/03/2020 12:00:00 AM EDT active Mupiroci n 2 % eCW1 ([facility]) Medipore H Surgical 4"x10yd - Medipore H Surgical 4"x10yd - 11/03/2020 12:00:00 AM EDT active Medipore H Surgic al 4"x10yd - eCW1 ([facility]) Mupirocin 0.02 MG/MG Topical Ointment Mupirocin 2 % Mupiroci n 2 % 11/03/2020 12:00:00 AM EDT active Mupiroci n 2 % eCW1 ([facility]) Mupirocin 0.02 MG/MG Topical Ointment Mupirocin 2 % Mupiroci n 2 % 11/03/2020 12:00:00 AM EDT active Mupiroci n 2 % eCW1 ([facility]) Mupirocin 0.02 MG/MG Topical Ointment Mupirocin 2 % Mupiroci n 2 % 11/03/2020 12:00:00 AM EDT active Mupiroci n 2 % eCW1 ([facility]) Mupirocin 0.02 MG/MG Topical Ointment Mupirocin 2 % Mupiroci n 2 % 11/03/2020 12:00:00 AM EDT active Mupiroci n 2 % eCW1 ([facility]) Mupirocin 0.02 MG/MG Topical Ointment Mupirocin 2 % Mupiroci n 2 % 11/03/2020 12:00:00 AM EDT active Mupiroci n 2 % eCW1 ([facility]) Medipore H Surgical 4"x10yd - Medipore H Surgical 4"x10yd - 11/03/2020 12:00:00 AM EDT active Medipore H Surgic al 4"x10yd - eCW1 ([facility]) Medipore H Surgical 4"x10yd - Medipore H Surgical 4"x10yd - 11/03/2020 12:00:00 AM EDT active Medipore H Surgic al 4"x10yd - eCW1 ([facility]) Medipore H Surgical 4"x10yd - Medipore H Surgical 4"x10yd - 11/03/2020 12:00:00 AM EDT active Medipore H Surgic al 4"x10yd - eCW1 ([facility]) Mupirocin 0.02 MG/MG Topical Ointment Mupirocin 2 % Mupiroci n 2 % 11/03/2020 12:00:00 AM EDT active Mupiroci n 2 % eCW1 ([facility]) Medipore H Surgical 4"x10yd - Medipore H Surgical 4"x10yd - 11/03/2020 12:00:00 AM EDT active Medipore H Surgic al 4"x10yd - eCW1 ([facility]) Mupirocin 0.02 MG/MG Topical Ointment Mupirocin 2 % Mupiroci n 2 % 11/03/2020 12:00:00 AM EDT active Mupiroci n 2 % eCW1 ([facility]) Mupirocin 0.02 MG/MG Topical Ointment Mupirocin 2 % Mupiroci n 2 % 11/03/2020 12:00:00 AM EDT active Mupiroci n 2 % eCW1 ([facility]) Medipore H Surgical 4"x10yd - Medipore H Surgical 4"x10yd - 11/03/2020 12:00:00 AM EDT active Medipore H Surgic al 4"x10yd - eCW1 ([facility]) Medipore H Surgical 4"x10yd - Medipore H Surgical 4"x10yd - 11/03/2020 12:00:00 AM EDT active Medipore H Surgic al 4"x10yd - eCW1 ([facility]) Mupirocin 0.02 MG/MG Topical Ointment Mupirocin 2 % Mupiroci n 2 % 11/03/2020 12:00:00 AM EDT active Mupiroci n 2 % eCW1 ([facility]) Medipore H Surgical 4"x10yd - Medipore H Surgical 4"x10yd - 11/03/2020 12:00:00 AM EDT active Medipore H Surgic al 4"x10yd - eCW1 ([facility]) Medipore H Surgical 4"x10yd - Medipore H Surgical 4"x10yd - 11/03/2020 12:00:00 AM EDT active Medipore H Surgic al 4"x10yd - eCW1 ([facility]) Mupirocin 0.02 MG/MG Topical Ointment Mupirocin 2 % Mupiroci n 2 % 11/03/2020 12:00:00 AM EDT active Mupiroci n 2 % eCW1 ([facility]) Medipore H Surgical 4"x10yd - Medipore H Surgical 4"x10yd - 11/03/2020 12:00:00 AM EDT active Medipore H Surgic al 4"x10yd - eCW1 ([facility]) Mupirocin 0.02 MG/MG Topical Ointment Mupirocin 2 % Mupiroci n 2 % 11/03/2020 12:00:00 AM EDT active Mupiroci n 2 % eCW1 ([facility]) Medipore H Surgical 4"x10yd - Medipore H Surgical 4"x10yd - 11/03/2020 12:00:00 AM EDT active Medipore H Surgic al 4"x10yd - eCW1 ([facility]) Mupirocin 0.02 MG/MG Topical Ointment Mupirocin 2 % Mupiroci n 2 % 11/03/2020 12:00:00 AM EDT active Mupiroci n 2 % eCW1 ([facility]) Medipore H Surgical 4"x10yd - Medipore H Surgical 4"x10yd - 11/03/2020 12:00:00 AM EDT active Medipore H Surgic al 4"x10yd - eCW1 ([facility]) Mupirocin 0.02 MG/MG Topical Ointment Mupirocin 2 % Mupiroci n 2 % 11/03/2020 12:00:00 AM EDT active Mupiroci n 2 % eCW1 ([facility]) Mupirocin 0.02 MG/MG Topical Ointment Mupirocin 2 % Mupiroci n 2 % 11/03/2020 12:00:00 AM EDT active Mupiroci n 2 % eCW1 ([facility]) Medipore H Surgical 4"x10yd - Medipore H Surgical 4"x10yd - 11/03/2020 12:00:00 AM EDT active Medipore H Surgic al 4"x10yd - eCW1 ([facility]) Medipore H Surgical 4"x10yd - Medipore H Surgical 4"x10yd - 11/03/2020 12:00:00 AM EDT active Medipore H Surgic al 4"x10yd - eCW1 ([facility]) Mupirocin 0.02 MG/MG Topical Ointment Mupirocin 2 % Mupiroci n 2 % 11/03/2020 12:00:00 AM EDT active Mupiroci n 2 % eCW1 ([facility]) Medipore H Surgical 4"x10yd - Medipore H Surgical 4"x10yd - 11/03/2020 12:00:00 AM EDT active Medipore H Surgic al 4"x10yd - eCW1 ([facility]) Medipore H Surgical 4"x10yd - Medipore H Surgical 4"x10yd - 11/03/2020 12:00:00 AM EDT active Medipore H Surgic al 4"x10yd - eCW1 ([facility]) Medipore H Surgical 4"x10yd - Medipore H Surgical 4"x10yd - 11/03/2020 12:00:00 AM EDT active eCW1 ([facility]) Medipore H Surgical 4"x10yd - Medipore H Surgical 4"x10yd - 11/03/2020 12:00:00 AM EDT active Medipore H Surgic al 4"x10yd - eCW1 ([facility]) Medipore H Surgical 4"x10yd - Medipore H Surgical 4"x10yd - 11/03/2020 12:00:00 AM EDT active Medipore H Surgic al 4"x10yd - eCW1 ([facility]) Mupirocin 0.02 MG/MG Topical Ointment Mupirocin 2 % Mupiroci n 2 % 11/03/2020 12:00:00 AM EDT active Mupiroci n 2 % eCW1 ([facility]) Mupirocin 0.02 MG/MG Topical Ointment Mupirocin 2 % Mupiroci n 2 % 11/03/2020 12:00:00 AM EDT active Mupiroci n 2 % eCW1 ([facility]) Mupirocin 0.02 MG/MG Topical Ointment Mupirocin 2 % Mupiroci n 2 % 11/03/2020 12:00:00 AM EDT active Mupiroci n 2 % eCW1 ([facility]) Mupirocin 0.02 MG/MG Topical Ointment Mupirocin 2 % Mupiroci n 2 % 11/03/2020 12:00:00 AM EDT active Mupiroci n 2 % eCW1 ([facility]) Mupirocin 0.02 MG/MG Topical Ointment Mupirocin 2 % Mupiroci n 2 % 11/03/2020 12:00:00 AM EDT active Mupiroci n 2 % eCW1 ([facility]) Mupirocin 0.02 MG/MG Topical Ointment Mupirocin 2 % Mupiroci n 2 % 11/03/2020 12:00:00 AM EDT active Mupiroci n 2 % eCW1 ([facility]) Medipore H Surgical 4"x10yd - Medipore H Surgical 4"x10yd - 11/03/2020 12:00:00 AM EDT active Medipore H Surgic al 4"x10yd - eCW1 ([facility]) Mupirocin 0.02 MG/MG Topical Ointment Mupirocin 2 % Mupiroci n 2 % 11/03/2020 12:00:00 AM EDT active e CW1 ([facility]) Medipore H Surgical 4"x10yd - Medipore H Surgical 4"x10yd - 11/03/2020 12:00:00 AM EDT active Medipore H Surgic al 4"x10yd - eCW1 ([facility]) Medipore H Surgical 4"x10yd - Medipore H Surgical 4"x10yd - 11/03/2020 12:00:00 AM EDT active Medipore H Surgic al 4"x10yd - eCW1 ([facility]) Mupirocin 0.02 MG/MG Topical Ointment Mupirocin 2 % Mupiroci n 2 % 11/03/2020 12:00:00 AM EDT active e CW1 ([facility]) Mupirocin 0.02 MG/MG Topical Ointment Mupirocin 2 % Mupiroci n 2 % 11/03/2020 12:00:00 AM EDT active Mupiroci n 2 % eCW1 ([facility]) Medipore H Surgical 4"x10yd - Medipore H Surgical 4"x10yd - 11/03/2020 12:00:00 AM EDT active Medipore H Surgic al 4"x10yd - eCW1 ([facility]) Medipore H Surgical 4"x10yd - Medipore H Surgical 4"x10yd - 11/03/2020 12:00:00 AM EDT active Medipore H Surgic al 4"x10yd - eCW1 ([facility]) Medipore H Surgical 4"x10yd - Medipore H Surgical 4"x10yd - 11/03/2020 12:00:00 AM EDT active Medipore H Surgic al 4"x10yd - eCW1 ([facility]) Mupirocin 0.02 MG/MG Topical Ointment Mupirocin 2 % Mupiroci n 2 % 11/03/2020 12:00:00 AM EDT active Mupiroci n 2 % eCW1 ([facility]) Medipore H Surgical 4"x10yd - Medipore H Surgical 4"x10yd - 11/03/2020 12:00:00 AM EDT active Medipore H Surgic al 4"x10yd - eCW1 ([facility]) Mupirocin 0.02 MG/MG Topical Ointment Mupirocin 2 % Mupiroci n 2 % 11/03/2020 12:00:00 AM EDT active Mupiroci n 2 % eCW1 ([facility]) Medipore H Surgical 4"x10yd - Medipore H Surgical 4"x10yd - 11/03/2020 12:00:00 AM EDT active Medipore H Surgic al 4"x10yd - eCW1 ([facility]) Mupirocin 0.02 MG/MG Topical Ointment Mupirocin 2 % Mupiroci n 2 % 11/03/2020 12:00:00 AM EDT active Mupiroci n 2 % eCW1 ([facility]) Mupirocin 0.02 MG/MG Topical Ointment Mupirocin 2 % Mupiroci n 2 % 11/03/2020 12:00:00 AM EDT active Mupiroci n 2 % eCW1 ([facility]) Medipore H Surgical 4"x10yd - Medipore H Surgical 4"x10yd - 11/03/2020 12:00:00 AM EDT active Medipore H Surgic al 4"x10yd - eCW1 ([facility]) Medipore H Surgical 4"x10yd - Medipore H Surgical 4"x10yd - 11/03/2020 12:00:00 AM EDT active Medipore H Surgic al 4"x10yd - eCW1 ([facility]) Medipore H Surgical 4"x10yd - Medipore H Surgical 4"x10yd - 11/03/2020 12:00:00 AM EDT active Medipore H Surgic al 4"x10yd - eCW1 ([facility]) Medipore H Surgical 4"x10yd - Medipore H Surgical 4"x10yd - 11/03/2020 12:00:00 AM EDT active Medipore H Surgic al 4"x10yd - eCW1 ([facility]) Mupirocin 0.02 MG/MG Topical Ointment Mupirocin 2 % Mupiroci n 2 % 11/03/2020 12:00:00 AM EDT active Mupiroci n 2 % eCW1 ([facility]) Mupirocin 0.02 MG/MG Topical Ointment Mupirocin 2 % Mupiroci n 2 % 11/03/2020 12:00:00 AM EDT active Mupiroci n 2 % eCW1 ([facility]) Medipore H Surgical 4"x10yd - Medipore H Surgical 4"x10yd - 11/03/2020 12:00:00 AM EDT active Medipore H Surgic al 4"x10yd - eCW1 ([facility]) 2 % 11/03/2020 12:00:00 AM EDT ointment 22 APPLY 1 APPLICATION TO THE LEFT INDEX FINGER THREE TIMES A DAY FOR 10 DAYS APPLY 1 APPLICATION TO THE LEFT INDEX FINGER THREE TIMES A DAY FOR 10 DAYS SOLD: 11/03/2020 [facility] Medipore H Surgical 4"x10yd - Medipore H Surgical 4"x10yd - 11/03/2020 12:00:00 AM EDT active Medipore H Surgic al 4"x10yd - eCW1 ([facility]) Mupirocin 0.02 MG/MG Topical Ointment Mupirocin 2 % Mupiroci n 2 % 11/03/2020 12:00:00 AM EDT active Mupiroci n 2 % eCW1 ([facility]) Mupirocin 0.02 MG/MG Topical Ointment Mupirocin 2 % Mupiroci n 2 % 11/03/2020 12:00:00 AM EDT active Mupiroci n 2 % eCW1 ([facility]) Mupirocin 0.02 MG/MG Topical Ointment Mupirocin 2 % Mupiroci n 2 % 11/03/2020 12:00:00 AM EDT active Mupiroci n 2 % eCW1 ([facility]) Mupirocin 0.02 MG/MG Topical Ointment Mupirocin 2 % Mupiroci n 2 % 11/03/2020 12:00:00 AM EDT active Mupiroci n 2 % eCW1 ([facility]) Medipore H Surgical 4"x10yd - Medipore H Surgical 4"x10yd - 11/03/2020 12:00:00 AM EDT active Medipore H Surgic al 4"x10yd - eCW1 ([facility]) Medipore H Surgical 4"x10yd - Medipore H Surgical 4"x10yd - 11/03/2020 12:00:00 AM EDT active Medipore H Surgic al 4"x10yd - eCW1 ([facility]) Medipore H Surgical 4"x10yd - Medipore H Surgical 4"x10yd - 11/03/2020 12:00:00 AM EDT active Medipore H Surgic al 4"x10yd - eCW1 ([facility]) Mupirocin 0.02 MG/MG Topical Ointment Mupirocin 2 % Mupiroci n 2 % 11/03/2020 12:00:00 AM EDT active Mupiroci n 2 % eCW1 ([facility]) Mupirocin 0.02 MG/MG Topical Ointment Mupirocin 2 % Mupiroci n 2 % 11/03/2020 12:00:00 AM EDT active Mupiroci n 2 % eCW1 ([facility]) Mupirocin 0.02 MG/MG Topical Ointment Mupirocin 2 % Mupiroci n 2 % 11/03/2020 12:00:00 AM EDT active Mupiroci n 2 % eCW1 ([facility]) Medipore H Surgical 4"x10yd - Medipore H Surgical 4"x10yd - 11/03/2020 12:00:00 AM EDT active Medipore H Surgic al 4"x10yd - eCW1 ([facility]) Medipore H Surgical 4"x10yd - Medipore H Surgical 4"x10yd - 11/03/2020 12:00:00 AM EDT active Medipore H Surgic al 4"x10yd - eCW1 ([facility]) Medipore H Surgical 4"x10yd - Medipore H Surgical 4"x10yd - 11/03/2020 12:00:00 AM EDT active Medipore H Surgic al 4"x10yd - eCW1 ([facility]) Medipore H Surgical 4"x10yd - Medipore H Surgical 4"x10yd - 11/03/2020 12:00:00 AM EDT active Medipore H Surgic al 4"x10yd - eCW1 ([facility]) Mupirocin 0.02 MG/MG Topical Ointment Mupirocin 2 % Mupiroci n 2 % 11/03/2020 12:00:00 AM EDT active Mupiroci n 2 % eCW1 ([facility]) Mupirocin 0.02 MG/MG Topical Ointment Mupirocin 2 % Mupiroci n 2 % 11/03/2020 12:00:00 AM EDT active Mupiroci n 2 % eCW1 ([facility]) [employer] H Surgical 4"x10yd - [employer] H Surgical 4"x10yd - 11/03/2020 12:00:00 AM EDT active [employer] H Surgic al 4"x10yd - eCW1 ([facility]) [employer] H Surgical 4"x10yd - [employer] H Surgical 4"x10yd - 11/03/2020 12:00:00 AM EDT active [employer] H Surgic al 4"x10yd - eCW1 ([facility]) Mupirocin 0.02 MG/MG Topical Ointment Mupirocin 2 % Mupiroci n 2 % 11/03/2020 12:00:00 AM EDT active Mupiroci n 2 % eCW1 ([facility]) Mupirocin 0.02 MG/MG Topical Ointment Mupirocin 2 % Mupiroci n 2 % 11/03/2020 12:00:00 AM EDT active Mupiroci n 2 % eCW1 ([facility]) [employer] H Surgical 4"x10yd - [employer] H Surgical 4"x10yd - 11/03/2020 12:00:00 AM EDT active eCW1 ([facility]) Mupirocin 0.02 MG/MG Topical Ointment Mupirocin 2 % Mupiroci n 2 % 11/03/2020 12:00:00 AM EDT active Mupiroci n 2 % eCW1 ([facility]) Med[employer] H Surgical 4"x10yd - [employer] H Surgical 4"x10yd - 11/03/2020 12:00:00 AM EDT active [employer] H Surgic al 4"x10yd - eCW1 ([facility]) Neosporin LT UNK 10/31/2020 12:00:00 AM EDT activ e Neosporin LT eCW1 ([facility]) Neosporin LT UNK 10/31/2020 12:00:00 AM EDT suspended Neosporin LT eCW1 ([facility]) Neosporin LT UNK 10/31/2020 12:00:00 AM EDT activ e Neosporin LT eCW1 ([facility]) Neosporin LT UNK 10/31/2020 12:00:00 AM EDT suspended Neosporin LT eCW1 ([facility]) Neosporin LT UNK 10/31/2020 12:00:00 AM EDT activ e Neosporin LT eCW1 ([facility]) Neosporin LT UNK 10/31/2020 12:00:00 AM EDT activ e Neosporin LT eCW1 ([facility]) 90 mcg/actuation 10/31/2020 12:00:00 AM EDT HFA aerosol inha ler 8 INHALE TWO PUFFS BY MOUTH EVERY 4 HOURS NEEDED INHALE TWO PUFFS BY MOUTH EVERY 4 HOURS NEEDED SOLD: 12/26/2020 [facility] Neosporin LT UNK 10/31/2020 12:00:00 AM EDT activ e Neosporin LT eCW1 ([facility]) Neosporin LT UNK 10/31/2020 12:00:00 AM EDT activ e Neosporin LT eCW1 ([facility]) Neosporin LT UNK 10/31/2020 12:00:00 AM EDT suspended Neosporin LT eCW1 ([facility]) Neosporin LT UNK 10/31/2020 12:00:00 AM EDT activ e Neosporin LT eCW1 ([facility]) Neosporin LT UNK 10/31/2020 12:00:00 AM EDT activ e Neosporin LT eCW1 ([facility]) Neosporin LT UNK 10/31/2020 12:00:00 AM EDT activ e Neosporin LT eCW1 ([facility]) Neosporin LT UNK 10/31/2020 12:00:00 AM EDT activ e Neosporin LT eCW1 ([facility]) 90 mcg/actuation 10/31/2020 12:00:00 AM EDT HFA aerosol inha ler 8 INHALE TWO PUFFS BY MOUTH EVERY 4 HOURS NEEDED INHALE TWO PUFFS BY MOUTH EVERY 4 HOURS NEEDED SOLD: 01/23/2021 [facility] Neosporin LT UNK 10/31/2020 12:00:00 AM EDT suspended Neosporin LT eCW1 ([facility]) Neosporin LT UNK 10/31/2020 12:00:00 AM EDT activ e Neosporin LT eCW1 ([facility]) Neosporin LT UNK 10/31/2020 12:00:00 AM EDT suspended Neosporin LT eCW1 ([facility]) Neosporin LT UNK 10/31/2020 12:00:00 AM EDT activ e Neosporin LT eCW1 ([facility]) Neosporin LT UNK 10/31/2020 12:00:00 AM EDT activ e Neosporin LT eCW1 ([facility]) Neosporin LT UNK 10/31/2020 12:00:00 AM EDT activ e Neosporin LT eCW1 ([facility]) Neosporin LT UNK 10/31/2020 12:00:00 AM EDT suspended Neosporin LT eCW1 ([facility]) Neosporin LT UNK 10/31/2020 12:00:00 AM EDT activ e Neosporin LT eCW1 ([facility]) Neosporin LT UNK 10/31/2020 12:00:00 AM EDT suspended Neosporin LT eCW1 ([facility]) Neosporin LT UNK 10/31/2020 12:00:00 AM EDT suspended Neosporin LT eCW1 ([facility]) Neosporin LT UNK 10/31/2020 12:00:00 AM EDT activ e Neosporin LT eCW1 ([facility]) Neosporin LT UNK 10/31/2020 12:00:00 AM EDT activ e Neosporin LT eCW1 ([facility]) 90 mcg/actuation 10/31/2020 12:00:00 AM EDT HFA aerosol inha ler 8 INHALE TWO PUFFS BY MOUTH EVERY 4 HOURS NEEDED INHALE TWO PUFFS BY MOUTH EVERY 4 HOURS NEEDED SOLD: 02/19/2021 [facility] Neosporin LT UNK 10/31/2020 12:00:00 AM EDT activ e Neosporin LT eCW1 ([facility]) Neosporin LT UNK 10/31/2020 12:00:00 AM EDT activ e Neosporin LT eCW1 ([facility]) Neosporin LT UNK 10/31/2020 12:00:00 AM EDT activ e eCW1 ([facility]) Neosporin LT UNK 10/31/2020 12:00:00 AM EDT suspended Neosporin LT eCW1 ([facility]) Neosporin LT UNK 10/31/2020 12:00:00 AM EDT activ e Neosporin LT eCW1 ([facility]) Neosporin LT UNK 10/31/2020 12:00:00 AM EDT activ e Neosporin LT eCW1 ([facility]) Neosporin LT UNK 10/31/2020 12:00:00 AM EDT suspended Neosporin LT eCW1 ([facility]) 90 mcg/actuation 10/31/2020 12:00:00 AM EDT HFA aerosol inha ler 8 INHALE TWO PUFFS BY MOUTH EVERY 4 HOURS NEEDED INHALE TWO PUFFS BY MOUTH EVERY 4 HOURS NEEDED SOLD: 10/31/2020 [facility] Neosporin LT UNK 10/31/2020 12:00:00 AM EDT activ e Neosporin LT eCW1 ([facility]) Neosporin LT UNK 10/31/2020 12:00:00 AM EDT suspe nded eCW1 ([facility]) Neosporin LT UNK 10/31/2020 12:00:00 AM EDT activ e Neosporin LT eCW1 ([facility]) Neosporin LT UNK 10/31/2020 12:00:00 AM EDT suspended Neosporin LT eCW1 ([facility]) Neosporin LT UNK 10/31/2020 12:00:00 AM EDT suspended Neosporin LT eCW1 ([facility]) Neosporin LT UNK 10/31/2020 12:00:00 AM EDT suspended Neosporin LT eCW1 ([facility]) Neosporin LT UNK 10/31/2020 12:00:00 AM EDT suspended Neosporin LT eCW1 ([facility]) Neosporin LT UNK 10/31/2020 12:00:00 AM EDT activ e Neosporin LT eCW1 ([facility]) Neosporin LT UNK 10/31/2020 12:00:00 AM EDT activ e Neosporin LT eCW1 ([facility]) Neosporin LT UNK 10/31/2020 12:00:00 AM EDT activ e Neosporin LT eCW1 ([facility]) Neosporin LT UNK 10/31/2020 12:00:00 AM EDT activ e Neosporin LT eCW1 ([facility]) Neosporin LT UNK 10/31/2020 12:00:00 AM EDT suspended Neosporin LT eCW1 ([facility]) Neosporin LT UNK 10/31/2020 12:00:00 AM EDT suspe nded eCW1 ([facility]) 90 mcg/actuation 10/31/2020 12:00:00 AM EDT HFA aerosol inha ler 8 INHALE TWO PUFFS BY MOUTH EVERY 4 HOURS NEEDED INHALE TWO PUFFS BY MOUTH EVERY 4 HOURS NEEDED SOLD: 11/27/2020 [facility] 90 mcg/actuation 10/31/2020 12:00:00 AM EDT HFA aerosol inha ler 8 INHALE TWO PUFFS BY MOUTH EVERY 4 HOURS NEEDED INHALE TWO PUFFS BY MOUTH EVERY 4 HOURS NEEDED SOLD: 03/20/2021 [facility] Neosporin Pain Relieving Berry UNK 10/30/2020 12:00:00 AM EDT active Neosporin Pain Relieving Berry eCW1 ([facility]) Neosporin Pain Relieving Berry UNK 10/30/2020 12:00:00 AM EDT active Neosporin Pain Relieving Berry eCW1 ([facility]) Neosporin Pain Relieving Berry UNK 10/30/2020 12:00:00 AM EDT active Neosporin Pain Relieving Berry eCW1 ([facility]) Neosporin Pain Relieving Berry UNK 10/30/2020 12:00:00 AM EDT suspended Neosporin Pain Relieving Berry e CW1 ([facility]) Neosporin Pain Relieving Berry UNK 10/30/2020 12:00:00 AM EDT active Neosporin Pain Relieving Berry eCW1 ([facility]) Neosporin Pain Relieving Berry UNK 10/30/2020 12:00:00 AM EDT active Neosporin Pain Relieving Berry eCW1 ([facility]) Neosporin Pain Relieving Berry UNK 10/30/2020 12:00:00 AM EDT active Neosporin Pain Relieving Berry eCW1 ([facility]) Neosporin Pain Relieving Berry UNK 10/30/2020 12:00:00 AM EDT active Neosporin Pain Relieving Berry eCW1 ([facility]) Neosporin Pain Relieving Berry UNK 10/30/2020 12:00:00 AM EDT suspended Neosporin Pain Relieving Berry e CW1 ([facility]) Neosporin Pain Relieving Berry UNK 10/30/2020 12:00:00 AM EDT suspended Neosporin Pain Relieving Berry e CW1 ([facility]) Neosporin Pain Relieving Berry UNK 10/30/2020 12:00:00 AM EDT active Neosporin Pain Relieving Berry eCW1 ([facility]) Neosporin Pain Relieving Berry UNK 10/30/2020 12:00:00 AM EDT suspended Neosporin Pain Relieving Berry e CW1 ([facility]) Neosporin Pain Relieving Berry UNK 10/30/2020 12:00:00 AM EDT active Neosporin Pain Relieving Berry eCW1 ([facility]) Neosporin Pain Relieving Berry UNK 10/30/2020 12:00:00 AM EDT active Neosporin Pain Relieving Berry eCW1 ([facility]) Neosporin Pain Relieving Berry UNK 10/30/2020 12:00:00 AM EDT suspended Neosporin Pain Relieving Berry e CW1 ([facility]) Neosporin Pain Relieving Berry UNK 10/30/2020 12:00:00 AM EDT suspended Neosporin Pain Relieving Berry e CW1 ([facility]) Neosporin Pain Relieving Berry UNK 10/30/2020 12:00:00 AM EDT active Neosporin Pain Relieving Berry eCW1 ([facility]) Neosporin Pain Relieving Berry UNK 10/30/2020 12:00:00 AM EDT active Neosporin Pain Relieving Berry eCW1 ([facility]) Neosporin Pain Relieving Berry UNK 10/30/2020 12:00:00 AM EDT suspended Neosporin Pain Relieving Berry e CW1 ([facility]) Neosporin Pain Relieving Berry UNK 10/30/2020 12:00:00 AM EDT suspended Neosporin Pain Relieving Berry e CW1 ([facility]) Neosporin Pain Relieving Berry UNK 10/30/2020 12:00:00 AM EDT active Neosporin Pain Relieving Berry eCW1 ([facility]) Neosporin Pain Relieving Berry UNK 10/30/2020 12:00:00 AM EDT suspended Neosporin Pain Relieving Berry e CW1 ([facility]) Neosporin Pain Relieving Berry UNK 10/30/2020 12:00:00 AM EDT suspended Neosporin Pain Relieving Berry e CW1 ([facility]) Neosporin Pain Relieving Berry UNK 10/30/2020 12:00:00 AM EDT suspended eCW1 ([facility]) Neosporin Pain Relieving Berry UNK 10/30/2020 12:00:00 AM EDT active Neosporin Pain Relieving Berry eCW1 ([facility]) Neosporin Pain Relieving Berry UNK 10/30/2020 12:00:00 AM EDT active Neosporin Pain Relieving Berry eCW1 ([facility]) Neosporin Pain Relieving Berry UNK 10/30/2020 12:00:00 AM EDT active Neosporin Pain Relieving Berry eCW1 ([facility]) Neosporin Pain Relieving Berry UNK 10/30/2020 12:00:00 AM EDT active Neosporin Pain Relieving Berry eCW1 ([facility]) Neosporin Pain Relieving Berry UNK 10/30/2020 12:00:00 AM EDT active eCW1 ([facility]) Neosporin Pain Relieving Berry UNK 10/30/2020 12:00:00 AM EDT active Neosporin Pain Relieving Berry eCW1 ([facility]) Neosporin Pain Relieving Berry UNK 10/30/2020 12:00:00 AM EDT suspended eCW1 ([facility]) Neosporin Pain Relieving Berry UNK 10/30/2020 12:00:00 AM EDT active Neosporin Pain Relieving Berry eCW1 ([facility]) Neosporin Pain Relieving Berry UNK 10/30/2020 12:00:00 AM EDT active Neosporin Pain Relieving Berry eCW1 ([facility]) Neosporin Pain Relieving Berry UNK 10/30/2020 12:00:00 AM EDT active Neosporin Pain Relieving Berry eCW1 ([facility]) Neosporin Pain Relieving Berry UNK 10/30/2020 12:00:00 AM EDT suspended Neosporin Pain Relieving Berry e CW1 ([facility]) Neosporin Pain Relieving Berry UNK 10/30/2020 12:00:00 AM EDT suspended Neosporin Pain Relieving Berry e CW1 ([facility]) Neosporin Pain Relieving Berry UNK 10/30/2020 12:00:00 AM EDT active Neosporin Pain Relieving Berry eCW1 ([facility]) Neosporin Pain Relieving Berry UNK 10/30/2020 12:00:00 AM EDT suspended Neosporin Pain Relieving Berry e CW1 ([facility]) Neosporin Pain Relieving Berry UNK 10/30/2020 12:00:00 AM EDT active Neosporin Pain Relieving Berry eCW1 ([facility]) Neosporin Pain Relieving Berry UNK 10/30/2020 12:00:00 AM EDT active Neosporin Pain Relieving Berry eCW1 ([facility]) Neosporin Pain Relieving Berry UNK 10/30/2020 12:00:00 AM EDT active Neosporin Pain Relieving Berry eCW1 ([facility]) Neosporin Pain Relieving Berry UNK 10/30/2020 12:00:00 AM EDT suspended Neosporin Pain Relieving Berry e CW1 ([facility]) Neosporin Pain Relieving Berry UNK 10/30/2020 12:00:00 AM EDT active Neosporin Pain Relieving Berry eCW1 ([facility]) Neosporin Pain Relieving Berry UNK 10/30/2020 12:00:00 AM EDT suspended Neosporin Pain Relieving Berry e CW1 ([facility]) Neosporin Pain Relieving Berry UNK 10/30/2020 12:00:00 AM EDT active Neosporin Pain Relieving Berry eCW1 ([facility]) Neosporin Pain Relieving Berry UNK 10/30/2020 12:00:00 AM EDT active Neosporin Pain Relieving Berry eCW1 ([facility]) Cavilon spray UNK 10/26/2020 12:00:00 AM EDT acti ve Cavilon spray eCW1 ([facility]) Cavilon spray UNK 10/26/2020 12:00:00 AM EDT acti ve Cavilon spray eCW1 ([facility]) Cavilon spray UNK 10/26/2020 12:00:00 AM EDT acti ve Cavilon spray eCW1 ([facility]) Cavilon spray UNK 10/26/2020 12:00:00 AM EDT acti ve Cavilon spray eCW1 ([facility]) Cavilon spray UNK 10/26/2020 12:00:00 AM EDT acti ve Cavilon spray eCW1 ([facility]) Cavilon spray UNK 10/26/2020 12:00:00 AM EDT acti ve Cavilon spray eCW1 ([facility]) Cavilon spray UNK 10/26/2020 12:00:00 AM EDT acti ve Cavilon spray eCW1 ([facility]) Cavilon spray UNK 10/26/2020 12:00:00 AM EDT acti ve Cavilon spray eCW1 ([facility]) Cavilon spray UNK 10/26/2020 12:00:00 AM EDT acti ve Cavilon spray eCW1 ([facility]) Cavilon spray UNK 10/26/2020 12:00:00 AM EDT acti ve Cavilon spray eCW1 ([facility]) Cavilon spray UNK 10/26/2020 12:00:00 AM EDT acti ve Cavilon spray eCW1 ([facility]) Cavilon spray UNK 10/26/2020 12:00:00 AM EDT acti ve Cavilon spray eCW1 ([facility]) Cavilon spray UNK 10/26/2020 12:00:00 AM EDT acti ve Cavilon spray eCW1 ([facility]) Cavilon spray UNK 10/26/2020 12:00:00 AM EDT acti ve Cavilon spray eCW1 ([facility]) Cavilon spray UNK 10/26/2020 12:00:00 AM EDT acti ve Cavilon spray eCW1 ([facility]) Cavilon spray UNK 10/26/2020 12:00:00 AM EDT acti ve Cavilon spray eCW1 ([facility]) Cavilon spray UNK 10/26/2020 12:00:00 AM EDT acti ve Cavilon spray eCW1 ([facility]) Cavilon spray UNK 10/26/2020 12:00:00 AM EDT acti ve Cavilon spray eCW1 ([facility]) Cavilon spray UNK 10/26/2020 12:00:00 AM EDT acti ve Cavilon spray eCW1 ([facility]) Cavilon spray UNK 10/26/2020 12:00:00 AM EDT acti ve Cavilon spray eCW1 ([facility]) Cavilon spray UNK 10/26/2020 12:00:00 AM EDT acti ve Cavilon spray eCW1 ([facility]) Cavilon spray UNK 10/26/2020 12:00:00 AM EDT acti ve Cavilon spray eCW1 ([facility]) Cavilon spray UNK 10/26/2020 12:00:00 AM EDT acti ve Cavilon spray eCW1 ([facility]) Cavilon spray UNK 10/26/2020 12:00:00 AM EDT acti ve Cavilon spray eCW1 ([facility]) Cavilon spray UNK 10/26/2020 12:00:00 AM EDT acti ve Cavilon spray eCW1 ([facility]) Cavilon spray UNK 10/26/2020 12:00:00 AM EDT acti ve Cavilon spray eCW1 ([facility]) Cavilon spray UNK 10/26/2020 12:00:00 AM EDT acti ve Cavilon spray eCW1 ([facility]) Cavilon spray UNK 10/26/2020 12:00:00 AM EDT acti ve Cavilon spray eCW1 ([facility]) Cavilon spray UNK 10/26/2020 12:00:00 AM EDT acti ve Cavilon spray eCW1 ([facility]) Cavilon spray UNK 10/26/2020 12:00:00 AM EDT acti ve Cavilon spray eCW1 ([facility]) Cavilon spray UNK 10/26/2020 12:00:00 AM EDT acti ve Cavilon spray eCW1 ([facility]) Cavilon spray UNK 10/26/2020 12:00:00 AM EDT acti ve Cavilon spray eCW1 ([facility]) Cavilon spray UNK 10/26/2020 12:00:00 AM EDT acti ve Cavilon spray eCW1 ([facility]) Cavilon spray UNK 10/26/2020 12:00:00 AM EDT acti ve Cavilon spray eCW1 ([facility]) Cavilon spray UNK 10/26/2020 12:00:00 AM EDT acti ve Cavilon spray eCW1 ([facility]) Cavilon spray UNK 10/26/2020 12:00:00 AM EDT acti ve Cavilon spray eCW1 ([facility]) Cavilon spray UNK 10/26/2020 12:00:00 AM EDT acti ve Cavilon spray eCW1 ([facility]) Cavilon spray UNK 10/26/2020 12:00:00 AM EDT acti ve Cavilon spray eCW1 ([facility]) Cavilon spray UNK 10/26/2020 12:00:00 AM EDT acti ve Cavilon spray eCW1 ([facility]) Cavilon spray UNK 10/26/2020 12:00:00 AM EDT acti ve Cavilon spray eCW1 ([facility]) Cavilon spray UNK 10/26/2020 12:00:00 AM EDT acti ve Cavilon spray eCW1 ([facility]) Cavilon spray UNK 10/26/2020 12:00:00 AM EDT acti ve Cavilon spray eCW1 ([facility]) Cavilon spray UNK 10/26/2020 12:00:00 AM EDT acti ve eCW1 ([facility]) Cavilon spray UNK 10/26/2020 12:00:00 AM EDT acti ve Cavilon spray eCW1 ([facility]) Cavilon spray UNK 10/26/2020 12:00:00 AM EDT acti ve eCW1 ([facility]) Cavilon spray UNK 10/26/2020 12:00:00 AM EDT acti ve Cavilon spray eCW1 ([facility]) Cavilon spray UNK 10/26/2020 12:00:00 AM EDT acti ve Cavilon spray eCW1 ([facility]) Cavilon spray UNK 10/26/2020 12:00:00 AM EDT acti ve Cavilon spray eCW1 ([facility]) Cavilon spray UNK 10/26/2020 12:00:00 AM EDT acti ve Cavilon spray eCW1 ([facility]) Cavilon spray UNK 10/26/2020 12:00:00 AM EDT acti ve Cavilon spray eCW1 ([facility]) Cavilon spray UNK 10/26/2020 12:00:00 AM EDT acti ve eCW1 ([facility]) Cavilon spray UNK 10/26/2020 12:00:00 AM EDT acti ve Cavilon spray eCW1 ([facility]) 80 mg 10/24/2020 12:00:00 AM EDT tablet,chewable 180 TAKE 2 TABLETS BY MOUTH 3 TIMES A DAY AFTER MEALS & AT BEDTIME NEEDED FOR ABDOMINAL PAIN & DISTENTION TAKE 2 TABLETS BY MOUTH 3 TIMES A DAY AF TER MEALS & AT BEDTIME NEEDED FOR ABDOMINAL PAIN & DISTENTION SOLD: 10/24/2020 [facility] 80 mg 10/24/2020 12:00:00 AM EDT tablet,chewable 180 TAKE 2 TABLETS BY MOUTH 3 TIMES A DAY AFTER MEALS & AT BEDTIME NEEDED FOR ABDOMINAL PAIN & DISTENTION TAKE 2 TABLETS BY MOUTH 3 TIMES A DAY AF TER MEALS & AT BEDTIME NEEDED FOR ABDOMINAL PAIN & DISTENTION SOLD: 11/21/2020 [facility] 80 mg 10/24/2020 12:00:00 AM EDT tablet,chewable 180 TAKE 2 TABLETS BY MOUTH 3 TIMES A DAY AFTER MEALS & AT BEDTIME NEEDED FOR ABDOMINAL PAIN & DISTENTION TAKE 2 TABLETS BY MOUTH 3 TIMES A DAY AF TER MEALS & AT BEDTIME NEEDED FOR ABDOMINAL PAIN & DISTENTION SOLD: 12/19/2020 [facility] 80 mg 10/24/2020 12:00:00 AM EDT tablet,chewable 85 TAKE 2 TABLETS BY MOUTH 3 TIMES A DAY AFTER MEALS & AT BEDTIME NEEDED FOR ABDOMINAL PAIN & DISTENTION TAKE 2 TABLETS BY MOUTH 3 TIMES A DAY AF TER MEALS & AT BEDTIME NEEDED FOR ABDOMINAL PAIN & DISTENTION SOLD: 01/19/2021 [facility] Hydromorphone Hydrochloride 2 MG Oral Tablet HYDROmorp nellie HCl 2 MG HYDROmorphone HCl 2 MG 10/21/2020 12:00:00 AM EDT 1.0 {tablet_as_need ed} active HYDROmorphone HCl 2 MG eCW1 ([facility]) Hydromorphone Hydrochloride 2 MG Oral Tablet HYDROmorp nellie HCl 2 MG HYDROmorphone HCl 2 MG 10/21/2020 12:00:00 AM EDT 1.0 {tablet_as_need ed} active HYDROmorphone HCl 2 MG eCW1 ([facility]) Hydromorphone Hydrochloride 2 MG Oral Tablet HYDROmorp nellie HCl 2 MG HYDROmorphone HCl 2 MG 10/21/2020 12:00:00 AM EDT 1.0 {tablet_as_need ed} active HYDROmorphone HCl 2 MG eCW1 ([facility]) Hydromorphone Hydrochloride 2 MG Oral Tablet HYDROmorp nellie HCl 2 MG HYDROmorphone HCl 2 MG 10/21/2020 12:00:00 AM EDT 1.0 {tablet_as_need ed} active HYDROmorphone HCl 2 MG eCW1 ([facility]) Hydromorphone Hydrochloride 2 MG Oral Tablet HYDROmorp nellie HCl 2 MG HYDROmorphone HCl 2 MG 10/21/2020 12:00:00 AM EDT 1.0 {tablet_as_need ed} active HYDROmorphone HCl 2 MG eCW1 ([facility]) 2 mg 10/21/2020 12:00:00 AM EDT tablet 112 TAKE ONE TABLET BY MOUTH EVERY 6 HOURS NEEDED MAXIMUM DAILY DOSE = 4 TAKE ONE TABLET BY MOUTH EVERY 6 HOURS A S NEEDED MAXIMUM DAILY DOSE = 4 SOLD: 10/21/2020 [facility] Hydromorphone Hydrochloride 2 MG Oral Tablet HYDROmorp nellie HCl 2 MG HYDROmorphone HCl 2 MG 10/21/2020 12:00:00 AM EDT 1.0 {tablet_as_need ed} active HYDROmorphone HCl 2 MG eCW1 ([facility]) Hydromorphone Hydrochloride 2 MG Oral Tablet HYDROmorp nellie HCl 2 MG HYDROmorphone HCl 2 MG 10/21/2020 12:00:00 AM EDT 1.0 {tablet_as_need ed} active HYDROmorphone HCl 2 MG eCW1 ([facility]) Hydromorphone Hydrochloride 2 MG Oral Tablet HYDROmorp nellie HCl 2 MG HYDROmorphone HCl 2 MG 10/21/2020 12:00:00 AM EDT 1.0 {tablet_as_need ed} active HYDROmorphone HCl 2 MG eCW1 ([facility]) Hydromorphone Hydrochloride 2 MG Oral Tablet HYDROmorp nellie HCl 2 MG HYDROmorphone HCl 2 MG 10/21/2020 12:00:00 AM EDT 1.0 {tablet_as_need ed} active HYDROmorphone HCl 2 MG eCW1 ([facility]) Hydromorphone Hydrochloride 2 MG Oral Tablet HYDROmorp nellie HCl 2 MG HYDROmorphone HCl 2 MG 10/21/2020 12:00:00 AM EDT 1.0 {tablet_as_need ed} active HYDROmorphone HCl 2 MG eCW1 ([facility]) Hydromorphone Hydrochloride 2 MG Oral Tablet HYDROmorp nellie HCl 2 MG HYDROmorphone HCl 2 MG 10/21/2020 12:00:00 AM EDT 1.0 {tablet_as_need ed} active HYDROmorphone HCl 2 MG eCW1 ([facility]) Hydromorphone Hydrochloride 2 MG Oral Tablet HYDROmorp nellie HCl 2 MG HYDROmorphone HCl 2 MG 10/21/2020 12:00:00 AM EDT 1.0 {tablet_as_need ed} active HYDROmorphone HCl 2 MG eCW1 ([facility]) Hydromorphone Hydrochloride 2 MG Oral Tablet HYDROmorp nellie HCl 2 MG HYDROmorphone HCl 2 MG 10/21/2020 12:00:00 AM EDT 1.0 {tablet_as_need ed} active HYDROmorphone HCl 2 MG eCW1 ([facility]) Hydromorphone Hydrochloride 2 MG Oral Tablet HYDROmorp nellie HCl 2 MG HYDROmorphone HCl 2 MG 10/21/2020 12:00:00 AM EDT 1.0 {tablet_as_need ed} active HYDROmorphone HCl 2 MG eCW1 ([facility]) DuoDERM CGF Dressing - DuoDERM CGF Dressing - 10/20/2020 12:00:00 A M EDT 1.0 {packet} active DuoDERM CGF Dressing - eCW1 ([facility]) DuoDERM CGF Dressing - DuoDERM CGF Dressing - 10/20/2020 12:00:00 A M EDT 1.0 {packet} active DuoDERM CGF Dressing - eCW1 ([facility]) DuoDERM CGF Dressing - DuoDERM CGF Dressing - 10/20/2020 12:00:00 A M EDT 1.0 {packet} active DuoDERM CGF Dressing - eCW1 ([facility]) DuoDERM CGF Dressing - DuoDERM CGF Dressing - 10/20/2020 12:00:00 A M EDT 1.0 {packet} active DuoDERM CGF Dressing - eCW1 ([facility]) DuoDERM CGF Dressing - DuoDERM CGF Dressing - 10/20/2020 12:00:00 A M EDT 1.0 {packet} active DuoDERM CGF Dressing - eCW1 ([facility]) DuoDERM CGF Dressing - DuoDERM CGF Dressing - 10/20/2020 12:00:00 A M EDT 1.0 {packet} active eCW1 ([facility]) DuoDERM CGF Dressing - DuoDERM CGF Dressing - 10/20/2020 12:00:00 A M EDT 1.0 {packet} active DuoDERM CGF Dressing - eCW1 ([facility]) DuoDERM CGF Dressing - DuoDERM CGF Dressing - 10/20/2020 12:00:00 A M EDT 1.0 {packet} active DuoDERM CGF Dressing - eCW1 ([facility]) DuoDERM CGF Dressing - DuoDERM CGF Dressing - 10/20/2020 12:00:00 A M EDT 1.0 {packet} active DuoDERM CGF Dressing - eCW1 ([facility]) DuoDERM CGF Dressing - DuoDERM CGF Dressing - 10/20/2020 12:00:00 A M EDT 1.0 {packet} active DuoDERM CGF Dressing - eCW1 ([facility]) DuoDERM CGF Dressing - DuoDERM CGF Dressing - 10/20/2020 12:00:00 A M EDT 1.0 {packet} active DuoDERM CGF Dressing - eCW1 ([facility]) DuoDERM CGF Dressing - DuoDERM CGF Dressing - 10/20/2020 12:00:00 A M EDT 1.0 {packet} active DuoDERM CGF Dressing - eCW1 ([facility]) DuoDERM CGF Dressing - DuoDERM CGF Dressing - 10/20/2020 12:00:00 A M EDT 1.0 {packet} active DuoDERM CGF Dressing - eCW1 ([facility]) DuoDERM CGF Dressing - DuoDERM CGF Dressing - 10/20/2020 12:00:00 A M EDT 1.0 {packet} active DuoDERM CGF Dressing - eCW1 ([facility]) DuoDERM CGF Dressing - DuoDERM CGF Dressing - 10/20/2020 12:00:00 A M EDT 1.0 {packet} active DuoDERM CGF Dressing - eCW1 ([facility]) DuoDERM CGF Dressing - DuoDERM CGF Dressing - 10/20/2020 12:00:00 A M EDT 1.0 {packet} active DuoDERM CGF Dressing - eCW1 ([facility]) DuoDERM CGF Dressing - DuoDERM CGF Dressing - 10/20/2020 12:00:00 A M EDT 1.0 {packet} active DuoDERM CGF Dressing - eCW1 ([facility]) DuoDERM CGF Dressing - DuoDERM CGF Dressing - 10/20/2020 12:00:00 A M EDT 1.0 {packet} active DuoDERM CGF Dressing - eCW1 ([facility]) DuoDERM CGF Dressing - DuoDERM CGF Dressing - 10/20/2020 12:00:00 A M EDT 1.0 {packet} active DuoDERM CGF Dressing - eCW1 ([facility]) DuoDERM CGF Dressing - DuoDERM CGF Dressing - 10/20/2020 12:00:00 A M EDT 1.0 {packet} active DuoDERM CGF Dressing - eCW1 ([facility]) DuoDERM CGF Dressing - DuoDERM CGF Dressing - 10/20/2020 12:00:00 A M EDT 1.0 {packet} active DuoDERM CGF Dressing - eCW1 ([facility]) DuoDERM CGF Dressing - DuoDERM CGF Dressing - 10/20/2020 12:00:00 A M EDT 1.0 {packet} active DuoDERM CGF Dressing - eCW1 ([facility]) DuoDERM CGF Dressing - DuoDERM CGF Dressing - 10/20/2020 12:00:00 A M EDT 1.0 {packet} active DuoDERM CGF Dressing - eCW1 ([facility]) DuoDERM CGF Dressing - DuoDERM CGF Dressing - 10/20/2020 12:00:00 A M EDT 1.0 {packet} active DuoDERM CGF Dressing - eCW1 ([facility]) DuoDERM CGF Dressing - DuoDERM CGF Dressing - 10/20/2020 12:00:00 A M EDT 1.0 {packet} active eCW1 ([facility]) DuoDERM CGF Dressing - DuoDERM CGF Dressing - 10/20/2020 12:00:00 A M EDT 1.0 {packet} active DuoDERM CGF Dressing - eCW1 ([facility]) DuoDERM CGF Dressing - DuoDERM CGF Dressing - 10/20/2020 12:00:00 A M EDT 1.0 {packet} active DuoDERM CGF Dressing - eCW1 ([facility]) DuoDERM CGF Dressing - DuoDERM CGF Dressing - 10/20/2020 12:00:00 A M EDT 1.0 {packet} active DuoDERM CGF Dressing - eCW1 ([facility]) DuoDERM CGF Dressing - DuoDERM CGF Dressing - 10/20/2020 12:00:00 A M EDT 1.0 {packet} active DuoDERM CGF Dressing - eCW1 ([facility]) DuoDERM CGF Dressing - DuoDERM CGF Dressing - 10/20/2020 12:00:00 A M EDT 1.0 {packet} active DuoDERM CGF Dressing - eCW1 ([facility]) DuoDERM CGF Dressing - DuoDERM CGF Dressing - 10/20/2020 12:00:00 A M EDT 1.0 {packet} active DuoDERM CGF Dressing - eCW1 ([facility]) DuoDERM CGF Dressing - DuoDERM CGF Dressing - 10/20/2020 12:00:00 A M EDT 1.0 {packet} active DuoDERM CGF Dressing - eCW1 ([facility]) DuoDERM CGF Dressing - DuoDERM CGF Dressing - 10/20/2020 12:00:00 A M EDT 1.0 {packet} active DuoDERM CGF Dressing - eCW1 ([facility]) DuoDERM CGF Dressing - DuoDERM CGF Dressing - 10/20/2020 12:00:00 A M EDT 1.0 {packet} active DuoDERM CGF Dressing - eCW1 ([facility]) DuoDERM CGF Dressing - DuoDERM CGF Dressing - 10/20/2020 12:00:00 A M EDT 1.0 {packet} active DuoDERM CGF Dressing - eCW1 ([facility]) DuoDERM CGF Dressing - DuoDERM CGF Dressing - 10/20/2020 12:00:00 A M EDT 1.0 {packet} active eCW1 ([facility]) DuoDERM CGF Dressing - DuoDERM CGF Dressing - 10/20/2020 12:00:00 A M EDT 1.0 {packet} active DuoDERM CGF Dressing - eCW1 ([facility]) DuoDERM CGF Dressing - DuoDERM CGF Dressing - 10/20/2020 12:00:00 A M EDT 1.0 {packet} active DuoDERM CGF Dressing - eCW1 ([facility]) DuoDERM CGF Dressing - DuoDERM CGF Dressing - 10/20/2020 12:00:00 A M EDT 1.0 {packet} active DuoDERM CGF Dressing - eCW1 ([facility]) DuoDERM CGF Dressing - DuoDERM CGF Dressing - 10/20/2020 12:00:00 A M EDT 1.0 {packet} active DuoDERM CGF Dressing - eCW1 ([facility]) DuoDERM CGF Dressing - DuoDERM CGF Dressing - 10/20/2020 12:00:00 A M EDT 1.0 {packet} active DuoDERM CGF Dressing - eCW1 ([facility]) DuoDERM CGF Dressing - DuoDERM CGF Dressing - 10/20/2020 12:00:00 A M EDT 1.0 {packet} active DuoDERM CGF Dressing - eCW1 ([facility]) DuoDERM CGF Dressing - DuoDERM CGF Dressing - 10/20/2020 12:00:00 A M EDT 1.0 {packet} active DuoDERM CGF Dressing - eCW1 ([facility]) DuoDERM CGF Dressing - DuoDERM CGF Dressing - 10/20/2020 12:00:00 A M EDT 1.0 {packet} active DuoDERM CGF Dressing - eCW1 ([facility]) DuoDERM CGF Dressing - DuoDERM CGF Dressing - 10/20/2020 12:00:00 A M EDT 1.0 {packet} active DuoDERM CGF Dressing - eCW1 ([facility]) DuoDERM CGF Dressing - DuoDERM CGF Dressing - 10/20/2020 12:00:00 A M EDT 1.0 {packet} active DuoDERM CGF Dressing - eCW1 ([facility]) DuoDERM CGF Dressing - DuoDERM CGF Dressing - 10/20/2020 12:00:00 A M EDT 1.0 {packet} active DuoDERM CGF Dressing - eCW1 ([facility]) DuoDERM CGF Dressing - DuoDERM CGF Dressing - 10/20/2020 12:00:00 A M EDT 1.0 {packet} active DuoDERM CGF Dressing - eCW1 ([facility]) DuoDERM CGF Dressing - DuoDERM CGF Dressing - 10/20/2020 12:00:00 A M EDT 1.0 {packet} active DuoDERM CGF Dressing - eCW1 ([facility]) DuoDERM CGF Dressing - DuoDERM CGF Dressing - 10/20/2020 12:00:00 A M EDT 1.0 {packet} active DuoDERM CGF Dressing - eCW1 ([facility]) DuoDERM CGF Dressing - DuoDERM CGF Dressing - 10/20/2020 12:00:00 A M EDT 1.0 {packet} active DuoDERM CGF Dressing - eCW1 ([facility]) DuoDERM CGF Dressing - DuoDERM CGF Dressing - 10/20/2020 12:00:00 A M EDT 1.0 {packet} active DuoDERM CGF Dressing - eCW1 ([facility]) DuoDERM CGF Dressing - DuoDERM CGF Dressing - 10/20/2020 12:00:00 A M EDT 1.0 {packet} active DuoDERM CGF Dressing - eCW1 ([facility]) DuoDERM CGF Dressing - DuoDERM CGF Dressing - 10/20/2020 12:00:00 A M EDT 1.0 {packet} active DuoDERM CGF Dressing - eCW1 ([facility]) DuoDERM CGF Dressing - DuoDERM CGF Dressing - 10/20/2020 12:00:00 A M EDT 1.0 {packet} active DuoDERM CGF Dressing - eCW1 ([facility]) DuoDERM CGF Dressing - DuoDERM CGF Dressing - 10/20/2020 12:00:00 A M EDT 1.0 {packet} active DuoDERM CGF Dressing - eCW1 ([facility]) 0.6 mg/0.1 mL (18 mg/3 mL) 10/19/2020 12:00:00 AM EDT pen in jector 9 INJECT 1.8 MG UNDER THE SKIN ONCE DAILY INJECT 1.8 MG UNDER THE SKIN ONCE DAILY SOLD: 01/28/2021 [facility] 0.6 mg/0.1 mL (18 mg/3 mL) 10/19/2020 12:00:00 AM EDT pen in jector 9 INJECT 1.8 MG UNDER THE SKIN ONCE DAILY INJECT 1.8 MG UNDER THE SKIN ONCE DAILY SOLD: 10/19/2020 [facility] 0.6 mg/0.1 mL (18 mg/3 mL) 10/19/2020 12:00:00 AM EDT pen in jector 9 INJECT 1.8 MG UNDER THE SKIN ONCE DAILY INJECT 1.8 MG UNDER THE SKIN ONCE DAILY SOLD: 02/25/2021 [facility] 0.6 mg/0.1 mL (18 mg/3 mL) 10/19/2020 12:00:00 AM EDT pen in jector 9 INJECT 1.8 MG UNDER THE SKIN ONCE DAILY INJECT 1.8 MG UNDER THE SKIN ONCE DAILY SOLD: 11/22/2020 [facility] 10 mg 10/18/2020 12:00:00 AM EDT tablet 90 TAKE 1 TABLET BY MOUTH 3 TIMES A DAY (BEFORE MEALS) TAKE 1 TABLET BY MOUTH 3 TIMES A DAY (BEFORE MEALS) SO LD: 10/20/2020 [facility] 10 mg 10/18/2020 12:00:00 AM EDT tablet 90 TAKE 1 TABLET BY MOUTH 3 TIMES A DAY (BEFORE MEALS) TAKE 1 TABLET BY MOUTH 3 TIMES A DAY (BEFORE MEALS) SO LD: 11/17/2020 [facility] 10 mg 10/18/2020 12:00:00 AM EDT tablet 90 TAKE 1 TABLET BY MOUTH 3 TIMES A DAY (BEFORE MEALS) TAKE 1 TABLET BY MOUTH 3 TIMES A DAY (BEFORE MEALS) SO LD: 01/12/2021 [facility] 10 mg 10/18/2020 12:00:00 AM EDT tablet 90 TAKE 1 TABLET BY MOUTH 3 TIMES A DAY (BEFORE MEALS) TAKE 1 TABLET BY MOUTH 3 TIMES A DAY (BEFORE MEALS) SO LD: 12/15/2020 [facility] 10 mg 10/18/2020 12:00:00 AM EDT tablet 90 TAKE 1 TABLET BY MOUTH 3 TIMES A DAY (BEFORE MEALS) TAKE 1 TABLET BY MOUTH 3 TIMES A DAY (BEFORE MEALS) SO LD: 02/09/2021 [facility] 10 mg 10/18/2020 12:00:00 AM EDT tablet 90 TAKE 1 TABLET BY MOUTH 3 TIMES A DAY (BEFORE MEALS) TAKE 1 TABLET BY MOUTH 3 TIMES A DAY (BEFORE MEALS) SO LD: 03/09/2021 [facility] 4 mg/2 mL 10/17/2020 12:00:00 AM EDT solution 180 INJECT 1 VIAL [4MG] 3 TIMES A DAY AT LEAST 6 HOURS APART DIRECTED INJECT 1 VIAL [4MG] 3 TIMES A DAY AT LEAST 6 HOURS APART DIRECTED SOLD: 10/17/2020 [facility] 4 mg/2 mL 10/17/2020 12:00:00 AM EDT solution 180 INJECT 1 VIAL [4MG] 3 TIMES A DAY AT LEAST 6 HOURS APART DIRECTED INJECT 1 VIAL [4MG] 3 TIMES A DAY AT LEAST 6 HOURS APART DIRECTED SOLD: 11/14/2020 [facility] 4 mg/2 mL 10/17/2020 12:00:00 AM EDT solution 180 INJECT 1 VIAL [4MG] 3 TIMES A DAY AT LEAST 6 HOURS APART DIRECTED INJECT 1 VIAL [4MG] 3 TIMES A DAY AT LEAST 6 HOURS APART DIRECTED SOLD: 12/13/2020 [facility] Nystatin 100 UNT/MG Topical Powder Nystatin 854575 UNI T/GM Nystatin 377808 UNIT/GM 10/13/2020 12:00:00 AM EDT 1.0 {application} active Nystatin 199524 UNIT/GM eCW1 ([facility]) Nystatin 100 UNT/MG Topical Powder Nystatin 859952 UNI T/GM Nystatin 916561 UNIT/GM 10/13/2020 12:00:00 AM EDT 1.0 {application} active Nystatin 465115 UNIT/GM eCW1 ([facility]) Nystatin 100 UNT/MG Topical Powder Nystatin 913192 UNI T/GM Nystatin 578800 UNIT/GM 10/13/2020 12:00:00 AM EDT 1.0 {application} active Nystatin 156837 UNIT/GM eCW1 ([facility]) Nystatin 100 UNT/MG Topical Powder Nystatin 808828 UNI T/GM Nystatin 669348 UNIT/GM 10/13/2020 12:00:00 AM EDT 1.0 {application} active Nystatin 600689 UNIT/GM eCW1 ([facility]) Nystatin 100 UNT/MG Topical Powder Nystatin 880646 UNI T/GM Nystatin 207126 UNIT/GM 10/13/2020 12:00:00 AM EDT 1.0 {application} active Nystatin 861417 UNIT/GM eCW1 ([facility]) Nystatin 100 UNT/MG Topical Powder Nystatin 171736 UNI T/GM Nystatin 820976 UNIT/GM 10/13/2020 12:00:00 AM EDT 1.0 {application} active Nystatin 942620 UNIT/GM eCW1 ([facility]) Nystatin 100 UNT/MG Topical Powder Nystatin 185655 UNI T/GM Nystatin 081244 UNIT/GM 10/13/2020 12:00:00 AM EDT 1.0 {application} active Nystatin 836405 UNIT/GM eCW1 ([facility]) Nystatin 100 UNT/MG Topical Powder Nystatin 325826 UNI T/GM Nystatin 546673 UNIT/GM 10/13/2020 12:00:00 AM EDT 1.0 {application} active Nystatin 616994 UNIT/GM eCW1 ([facility]) Nystatin 100 UNT/MG Topical Powder Nystatin 181134 UNI T/GM Nystatin 724096 UNIT/GM 10/13/2020 12:00:00 AM EDT 1.0 {application} active Nystatin 518177 UNIT/GM eCW1 ([facility]) Nystatin 100 UNT/MG Topical Powder Nystatin 180529 UNI T/GM Nystatin 203988 UNIT/GM 10/13/2020 12:00:00 AM EDT 1.0 {application} active Nystatin 281820 UNIT/GM eCW1 ([facility]) Nystatin 100 UNT/MG Topical Powder Nystatin 047415 UNI T/GM Nystatin 370960 UNIT/GM 10/13/2020 12:00:00 AM EDT 1.0 {application} active Nystatin 500707 UNIT/GM eCW1 ([facility]) Nystatin 100 UNT/MG Topical Powder Nystatin 750142 UNI T/GM Nystatin 951873 UNIT/GM 10/13/2020 12:00:00 AM EDT 1.0 {application} active Nystatin 477799 UNIT/GM eCW1 ([facility]) Nystatin 100 UNT/MG Topical Powder Nystatin 915672 UNI T/GM Nystatin 910334 UNIT/GM 10/13/2020 12:00:00 AM EDT 1.0 {application} active Nystatin 018274 UNIT/GM eCW1 ([facility]) Nystatin 100 UNT/MG Topical Powder Nystatin 821983 UNI T/GM Nystatin 141694 UNIT/GM 10/13/2020 12:00:00 AM EDT 1.0 {application} active Nystatin 742135 UNIT/GM eCW1 ([facility]) Nystatin 100 UNT/MG Topical Powder Nystatin 021551 UNI T/GM Nystatin 494224 UNIT/GM 10/13/2020 12:00:00 AM EDT 1.0 {application} active Nystatin 629206 UNIT/GM eCW1 ([facility]) Nystatin 100 UNT/MG Topical Powder Nystatin 117706 UNI T/GM Nystatin 365753 UNIT/GM 10/13/2020 12:00:00 AM EDT 1.0 {application} active Nystatin 987300 UNIT/GM eCW1 ([facility]) Nystatin 100 UNT/MG Topical Powder Nystatin 423945 UNI T/GM Nystatin 846474 UNIT/GM 10/13/2020 12:00:00 AM EDT 1.0 {application} act nba eCW1 ([facility]) Nystatin 100 UNT/MG Topical Powder Nystatin 535675 UNI T/GM Nystatin 895062 UNIT/GM 10/13/2020 12:00:00 AM EDT 1.0 {application} active Nystatin 814482 UNIT/GM eCW1 ([facility]) Nystatin 100 UNT/MG Topical Powder Nystatin 116844 UNI T/GM Nystatin 597849 UNIT/GM 10/13/2020 12:00:00 AM EDT 1.0 {application} active Nystatin 386670 UNIT/GM eCW1 ([facility]) Nystatin 100 UNT/MG Topical Powder Nystatin 468332 UNI T/GM Nystatin 903933 UNIT/GM 10/13/2020 12:00:00 AM EDT 1.0 {application} active Nystatin 346783 UNIT/GM eCW1 ([facility]) Nystatin 100 UNT/MG Topical Powder Nystatin 136476 UNI T/GM Nystatin 970630 UNIT/GM 10/13/2020 12:00:00 AM EDT 1.0 {application} active Nystatin 387448 UNIT/GM eCW1 ([facility]) Nystatin 100 UNT/MG Topical Powder Nystatin 450383 UNI T/GM Nystatin 090224 UNIT/GM 10/13/2020 12:00:00 AM EDT 1.0 {application} active Nystatin 444974 UNIT/GM eCW1 ([facility]) 100 unit/mL (3 mL) 10/13/2020 12:00:00 AM EDT insulin pen 15 INJECT 50 UNITS UNDER THE SKIN IN THE MORNING INJECT 50 UNITS UNDER THE SKIN IN THE MORNING SOLD: 10/13/2020 [facility] Nystatin 100 UNT/MG Topical Powder Nystatin 930881 UNI T/GM Nystatin 334137 UNIT/GM 10/13/2020 12:00:00 AM EDT 1.0 {application} active Nystatin 930203 UNIT/GM eCW1 ([facility]) 100 unit/mL (3 mL) 10/13/2020 12:00:00 AM EDT insulin pen 15 INJECT 50 UNITS UNDER THE SKIN IN THE MORNING INJECT 50 UNITS UNDER THE SKIN IN THE MORNING SOLD: 11/10/2020 [facility] Nystatin 100 UNT/MG Topical Powder Nystatin 238900 UNI T/GM Nystatin 372438 UNIT/GM 10/13/2020 12:00:00 AM EDT 1.0 {application} active Nystatin 952290 UNIT/GM eCW1 ([facility]) Nystatin 100 UNT/MG Topical Powder Nystatin 824418 UNI T/GM Nystatin 908785 UNIT/GM 10/13/2020 12:00:00 AM EDT 1.0 {application} active Nystatin 068642 UNIT/GM eCW1 ([facility]) Nystatin 100 UNT/MG Topical Powder Nystatin 599858 UNI T/GM Nystatin 383220 UNIT/GM 10/13/2020 12:00:00 AM EDT 1.0 {application} active Nystatin 760168 UNIT/GM eCW1 ([facility]) Nystatin 100 UNT/MG Topical Powder Nystatin 738380 UNI T/GM Nystatin 297770 UNIT/GM 10/13/2020 12:00:00 AM EDT 1.0 {application} active Nystatin 445195 UNIT/GM eCW1 ([facility]) Nystatin 100 UNT/MG Topical Powder Nystatin 047365 UNI T/GM Nystatin 643943 UNIT/GM 10/13/2020 12:00:00 AM EDT 1.0 {application} active Nystatin 991032 UNIT/GM eCW1 ([facility]) Nystatin 100 UNT/MG Topical Powder Nystatin 490192 UNI T/GM Nystatin 909079 UNIT/GM 10/13/2020 12:00:00 AM EDT 1.0 {application} active Nystatin 947003 UNIT/GM eCW1 ([facility]) Nystatin 100 UNT/MG Topical Powder Nystatin 255333 UNI T/GM Nystatin 645742 UNIT/GM 10/13/2020 12:00:00 AM EDT 1.0 {application} active Nystatin 615645 UNIT/GM eCW1 ([facility]) Nystatin 100 UNT/MG Topical Powder Nystatin 035340 UNI T/GM Nystatin 677856 UNIT/GM 10/13/2020 12:00:00 AM EDT 1.0 {application} active Nystatin 758008 UNIT/GM eCW1 ([facility]) Nystatin 100 UNT/MG Topical Powder Nystatin 238786 UNI T/GM Nystatin 592508 UNIT/GM 10/13/2020 12:00:00 AM EDT 1.0 {application} act nba eCW1 ([facility]) Nystatin 100 UNT/MG Topical Powder Nystatin 581002 UNI T/GM Nystatin 391669 UNIT/GM 10/13/2020 12:00:00 AM EDT 1.0 {application} active Nystatin 894542 UNIT/GM eCW1 ([facility]) Nystatin 100 UNT/MG Topical Powder Nystatin 477695 UNI T/GM Nystatin 718535 UNIT/GM 10/13/2020 12:00:00 AM EDT 1.0 {application} active Nystatin 516917 UNIT/GM eCW1 ([facility]) Nystatin 100 UNT/MG Topical Powder Nystatin 886562 UNI T/GM Nystatin 478068 UNIT/GM 10/13/2020 12:00:00 AM EDT 1.0 {application} active Nystatin 961650 UNIT/GM eCW1 ([facility]) Nystatin 100 UNT/MG Topical Powder Nystatin 673960 UNI T/GM Nystatin 385369 UNIT/GM 10/13/2020 12:00:00 AM EDT 1.0 {application} active Nystatin 897699 UNIT/GM eCW1 ([facility]) Nystatin 100 UNT/MG Topical Powder Nystatin 660338 UNI T/GM Nystatin 758111 UNIT/GM 10/13/2020 12:00:00 AM EDT 1.0 {application} active Nystatin 622184 UNIT/GM eCW1 ([facility]) 100 unit/mL (3 mL) 10/13/2020 12:00:00 AM EDT insulin pen 15 INJECT 50 UNITS UNDER THE SKIN IN THE MORNING INJECT 50 UNITS UNDER THE SKIN IN THE MORNING SOLD: 12/07/2020 [facility] Nystatin 100 UNT/MG Topical Powder Nystatin 768109 UNI T/GM Nystatin 746116 UNIT/GM 10/13/2020 12:00:00 AM EDT 1.0 {application} active Nystatin 064864 UNIT/GM eCW1 ([facility]) Nystatin 100 UNT/MG Topical Powder Nystatin 085290 UNI T/GM Nystatin 532867 UNIT/GM 10/13/2020 12:00:00 AM EDT 1.0 {application} active Nystatin 074298 UNIT/GM eCW1 ([facility]) Nystatin 100 UNT/MG Topical Powder Nystatin 811326 UNI T/GM Nystatin 399756 UNIT/GM 10/13/2020 12:00:00 AM EDT 1.0 {application} active Nystatin 839595 UNIT/GM eCW1 ([facility]) Nystatin 100 UNT/MG Topical Powder Nystatin 386968 UNI T/GM Nystatin 150722 UNIT/GM 10/13/2020 12:00:00 AM EDT 1.0 {application} active Nystatin 319969 UNIT/GM eCW1 ([facility]) 100,000 unit/gram 10/13/2020 12:00:00 AM EDT powder 60 APPLY FOUR TIMES A DAY EXTERNALLY APPLY FOUR TIMES A DAY EXTERNALLY SOLD: 10/13/2020 [facility] Nystatin 100 UNT/MG Topical Powder Nystatin 438688 UNI T/GM Nystatin 370322 UNIT/GM 10/13/2020 12:00:00 AM EDT 1.0 {application} active Nystatin 495762 UNIT/GM eCW1 ([facility]) 100,000 unit/gram 10/13/2020 12:00:00 AM EDT powder 60 APPLY FOUR TIMES A DAY EXTERNALLY APPLY FOUR TIMES A DAY EXTERNALLY SOLD: 11/10/2020 [facility] Nystatin 100 UNT/MG Topical Powder Nystatin 040668 UNI T/GM Nystatin 930716 UNIT/GM 10/13/2020 12:00:00 AM EDT 1.0 {application} active Nystatin 398089 UNIT/GM eCW1 ([facility]) Nystatin 100 UNT/MG Topical Powder Nystatin 648581 UNI T/GM Nystatin 015686 UNIT/GM 10/13/2020 12:00:00 AM EDT 1.0 {application} active Nystatin 014935 UNIT/GM eCW1 ([facility]) Nystatin 100 UNT/MG Topical Powder Nystatin 301239 UNI T/GM Nystatin 576882 UNIT/GM 10/13/2020 12:00:00 AM EDT 1.0 {application} active Nystatin 081970 UNIT/GM eCW1 ([facility]) Nystatin 100 UNT/MG Topical Powder Nystatin 144741 UNI T/GM Nystatin 872779 UNIT/GM 10/13/2020 12:00:00 AM EDT 1.0 {application} active Nystatin 095629 UNIT/GM eCW1 ([facility]) Nystatin 100 UNT/MG Topical Powder Nystatin 105798 UNI T/GM Nystatin 427297 UNIT/GM 10/13/2020 12:00:00 AM EDT 1.0 {application} active Nystatin 232687 UNIT/GM eCW1 ([facility]) Nystatin 100 UNT/MG Topical Powder Nystatin 752375 UNI T/GM Nystatin 374261 UNIT/GM 10/13/2020 12:00:00 AM EDT 1.0 {application} active Nystatin 537102 UNIT/GM eCW1 ([facility]) Nystatin 100 UNT/MG Topical Powder Nystatin 839222 UNI T/GM Nystatin 513680 UNIT/GM 10/13/2020 12:00:00 AM EDT 1.0 {application} active Nystatin 414406 UNIT/GM eCW1 ([facility]) Nystatin 100 UNT/MG Topical Powder Nystatin 644990 UNI T/GM Nystatin 611616 UNIT/GM 10/13/2020 12:00:00 AM EDT 1.0 {application} active Nystatin 339070 UNIT/GM eCW1 ([facility]) Nystatin 100 UNT/MG Topical Powder Nystatin 502603 UNI T/GM Nystatin 470604 UNIT/GM 10/13/2020 12:00:00 AM EDT 1.0 {application} active Nystatin 958963 UNIT/GM eCW1 ([facility]) Nystatin 100 UNT/MG Topical Powder Nystatin 295132 UNI T/GM Nystatin 735551 UNIT/GM 10/13/2020 12:00:00 AM EDT 1.0 {application} active Nystatin 480370 UNIT/GM eCW1 ([facility]) 300 mg 10/01/2020 12:00:00 AM EDT capsule 10 TAKE ONE CAPSULE BY MOUTH TWICE A DAY TAKE ONE CAPSULE BY MOUTH TWICE A DAY SOLD: 10/01/2020 [facility] Metronidazole 500 MG Oral Tablet METRONIDAZOLE 10/01/2020 12:0 0:00 AM EDT tablet 15 TAKE ONE TABLET BY MOUTH THREE T IMES A DAY TAKE ONE TABLET BY MOUTH THREE TIMES A DAY SOLD: 10/01/2020 [facility] 2 mg 09/28/2020 12:00:00 AM EDT tablet 112 TAKE ONE TABLET BY MOUTH EVERY 6 HOURS NEEDED MAXIMUM DAILY DOSE = 4 TABLETS TAKE ONE TABLET BY MOUTH EVERY 6 HOURS NEEDED MAXIMUM DAILY DOSE = 4 TABLETS SOLD: 09/28/2020 [facility] Hydromorphone Hydrochloride 2 MG Oral Tablet HYDROmorp nellie HCl 2 MG HYDROmorphone HCl 2 MG 09/27/2020 12:00:00 AM EDT 1.0 {tablet_as_need ed} active HYDROmorphone HCl 2 MG eCW1 ([facility]) Hydromorphone Hydrochloride 2 MG Oral Tablet HYDROmorp nellie HCl 2 MG HYDROmorphone HCl 2 MG 09/27/2020 12:00:00 AM EDT 1.0 {tablet_as_need ed} active HYDROmorphone HCl 2 MG eCW1 ([facility]) Hydromorphone Hydrochloride 2 MG Oral Tablet HYDROmorp nellie HCl 2 MG HYDROmorphone HCl 2 MG 09/27/2020 12:00:00 AM EDT 1.0 {tablet_as_need ed} active HYDROmorphone HCl 2 MG eCW1 ([facility]) Hydromorphone Hydrochloride 2 MG Oral Tablet HYDROmorp nellie HCl 2 MG HYDROmorphone HCl 2 MG 09/27/2020 12:00:00 AM EDT 1.0 {tablet_as_need ed} active HYDROmorphone HCl 2 MG eCW1 ([facility]) 12 % 09/25/2020 12:00:00 AM EDT cream 140 APPLY TWO TIMES A DAY TO FEET APPLY TWO TIMES A DAY TO FEET SOLD: 02/12/2021 [facility] 12 % 09/25/2020 12:00:00 AM EDT cream 140 APPLY TWO TIMES A DAY TO FEET APPLY TWO TIMES A DAY TO FEET SOLD: 01/15/2021 [facility] 1,000 mg 09/25/2020 12:00:00 AM EDT suppository 30 INSERT 1 SUPPOSITORY RECTALLY AT BEDTIME INSERT 1 SUPPOSITORY RECTALLY AT BEDTIME SOLD: 09/25/2020 [facility] 12 % 09/25/2020 12:00:00 AM EDT cream 140 APPLY TWO TIMES A DAY TO FEET APPLY TWO TIMES A DAY TO FEET SOLD: 12/18/2020 [facility] 1,000 mg 09/25/2020 12:00:00 AM EDT suppository 30 INSERT 1 SUPPOSITORY RECTALLY AT BEDTIME INSERT 1 SUPPOSITORY RECTALLY AT BEDTIME SOLD: 01/15/2021 [facility] 1,000 mg 09/25/2020 12:00:00 AM EDT suppository 30 INSERT 1 SUPPOSITORY RECTALLY AT BEDTIME INSERT 1 SUPPOSITORY RECTALLY AT BEDTIME SOLD: 12/18/2020 [facility] 12 % 09/25/2020 12:00:00 AM EDT cream 140 APPLY TWO TIMES A DAY TO FEET APPLY TWO TIMES A DAY TO FEET SOLD: 11/20/2020 [facility] 1,000 mg 09/25/2020 12:00:00 AM EDT suppository 30 INSERT 1 SUPPOSITORY RECTALLY AT BEDTIME INSERT 1 SUPPOSITORY RECTALLY AT BEDTIME SOLD: 11/20/2020 [facility] 12 % 09/25/2020 12:00:00 AM EDT cream 140 APPLY TWO TIMES A DAY TO FEET APPLY TWO TIMES A DAY TO FEET SOLD: 10/23/2020 [facility] 1,000 mg 09/25/2020 12:00:00 AM EDT suppository 30 INSERT 1 SUPPOSITORY RECTALLY AT BEDTIME INSERT 1 SUPPOSITORY RECTALLY AT BEDTIME SOLD: 10/23/2020 [facility] 12 % 09/25/2020 12:00:00 AM EDT cream 140 APPLY TWO TIMES A DAY TO FEET APPLY TWO TIMES A DAY TO FEET SOLD: 09/25/2020 [facility] 0.1 % 09/21/2020 12:00:00 AM EDT cream 30 APPLY SMALL AMOUNT TO AFFECTED AREA(S) TWO TIMES A DAY NEEDED FOR 14 DAYS APPLY SMALL AMOUNT TO AFFECTED AREA(S) TWO TIMES A DAY NEEDED FOR 14 DAYS SOLD: 09/21/2020 [facility] 10 gram/15 mL 09/19/2020 12:00:00 AM EDT solution 946 TAKE 10 ML BY MOUTH FOUR TIMES A DAY TAKE 10 ML BY MOUTH FOUR TIMES A DAY SOLD: 11/14/2020 [facility] 10 gram/15 mL 09/19/2020 12:00:00 AM EDT solution 473 TAKE 10 ML BY MOUTH FOUR TIMES A DAY TAKE 10 ML BY MOUTH FOUR TIMES A DAY SOLD: 02/18/2021 [facility] 10 gram/15 mL 09/19/2020 12:00:00 AM EDT solution 946 TAKE 10 ML BY MOUTH FOUR TIMES A DAY TAKE 10 ML BY MOUTH FOUR TIMES A DAY SOLD: 12/27/2020 [facility] 10 gram/15 mL 09/19/2020 12:00:00 AM EDT solution 946 TAKE 10 ML BY MOUTH FOUR TIMES A DAY TAKE 10 ML BY MOUTH FOUR TIMES A DAY SOLD: 10/26/2020 [facility] 10 gram/15 mL 09/19/2020 12:00:00 AM EDT solution 946 TAKE 10 ML BY MOUTH FOUR TIMES A DAY TAKE 10 ML BY MOUTH FOUR TIMES A DAY SOLD: 02/02/2021 [facility] 10 gram/15 mL 09/19/2020 12:00:00 AM EDT solution 946 TAKE 10 ML BY MOUTH FOUR TIMES A DAY TAKE 10 ML BY MOUTH FOUR TIMES A DAY SOLD: 01/19/2021 [facility] 10 gram/15 mL 09/19/2020 12:00:00 AM EDT solution 946 TAKE 10 ML BY MOUTH FOUR TIMES A DAY TAKE 10 ML BY MOUTH FOUR TIMES A DAY SOLD: 12/04/2020 [facility] 10 gram/15 mL 09/19/2020 12:00:00 AM EDT solution 946 TAKE 10 ML BY MOUTH FOUR TIMES A DAY TAKE 10 ML BY MOUTH FOUR TIMES A DAY SOLD: 09/19/2020 [facility] 10 gram/15 mL 09/19/2020 12:00:00 AM EDT solution 946 TAKE 10 ML BY MOUTH FOUR TIMES A DAY TAKE 10 ML BY MOUTH FOUR TIMES A DAY SOLD: 10/11/2020 [facility] Mupirocin 0.02 MG/MG Topical Ointment Mupirocin 2 % Mupiroci n 2 % 09/14/2020 12:00:00 AM EDT active Mupiroci n 2 % eCW1 ([facility]) Sodium Chloride 0.111 MEQ/ML Nasal Berry Saline Nasal Berry 0.65 % Saline Nasal Berry 0.65 % 09/14/2020 12:00:00 AM EDT activ e Saline Nasal Berry 0.65 % eCW1 ([facility]) Sodium Chloride 0.111 MEQ/ML Nasal Berry Saline Nasal Berry 0.65 % Saline Nasal Berry 0.65 % 09/14/2020 12:00:00 AM EDT activ e Saline Nasal Berry 0.65 % eCW1 ([facility]) Sodium Chloride 0.111 MEQ/ML Nasal Berry Saline Nasal Berry 0.65 % Saline Nasal Berry 0.65 % 09/14/2020 12:00:00 AM EDT activ e Saline Nasal Berry 0.65 % eCW1 ([facility]) Sodium Chloride 0.111 MEQ/ML Nasal Berry Saline Nasal Berry 0.65 % Saline Nasal Berry 0.65 % 09/14/2020 12:00:00 AM EDT activ e Saline Nasal Berry 0.65 % eCW1 ([facility]) Sodium Chloride 0.111 MEQ/ML Nasal Berry Saline Nasal Berry 0.65 % Saline Nasal Berry 0.65 % 09/14/2020 12:00:00 AM EDT activ e Saline Nasal Berry 0.65 % eCW1 ([facility]) Sodium Chloride 0.111 MEQ/ML Nasal Berry Saline Nasal Berry 0.65 % Saline Nasal Berry 0.65 % 09/14/2020 12:00:00 AM EDT activ e Saline Nasal Berry 0.65 % eCW1 ([facility]) Sodium Chloride 0.111 MEQ/ML Nasal Berry Saline Nasal Berry 0.65 % Saline Nasal Berry 0.65 % 09/14/2020 12:00:00 AM EDT activ e Saline Nasal Berry 0.65 % eCW1 ([facility]) Mupirocin 0.02 MG/MG Topical Ointment Mupirocin 2 % Mupiroci n 2 % 09/14/2020 12:00:00 AM EDT active Mupiroci n 2 % eCW1 ([facility]) Sodium Chloride 0.111 MEQ/ML Nasal Berry Saline Nasal Berry 0.65 % Saline Nasal Berry 0.65 % 09/14/2020 12:00:00 AM EDT active eCW1 ([facility]) Sodium Chloride 0.111 MEQ/ML Nasal Berry Saline Nasal Berry 0.65 % Saline Nasal Berry 0.65 % 09/14/2020 12:00:00 AM EDT activ e Saline Nasal Berry 0.65 % eCW1 ([facility]) Sodium Chloride 0.111 MEQ/ML Nasal Berry Saline Nasal Berry 0.65 % Saline Nasal Berry 0.65 % 09/14/2020 12:00:00 AM EDT activ e Saline Nasal Berry 0.65 % eCW1 ([facility]) Mupirocin 0.02 MG/MG Topical Ointment Mupirocin 2 % Mupiroci n 2 % 09/14/2020 12:00:00 AM EDT active Mupiroci n 2 % eCW1 ([facility]) Sodium Chloride 0.111 MEQ/ML Nasal Berry Saline Nasal Berry 0.65 % Saline Nasal Berry 0.65 % 09/14/2020 12:00:00 AM EDT activ e Saline Nasal Berry 0.65 % eCW1 ([facility]) Mupirocin 0.02 MG/MG Topical Ointment Mupirocin 2 % Mupiroci n 2 % 09/14/2020 12:00:00 AM EDT active e CW1 ([facility]) Mupirocin 0.02 MG/MG Topical Ointment Mupirocin 2 % Mupiroci n 2 % 09/14/2020 12:00:00 AM EDT active Mupiroci n 2 % eCW1 ([facility]) Sodium Chloride 0.111 MEQ/ML Nasal Berry Saline Nasal Berry 0.65 % Saline Nasal Berry 0.65 % 09/14/2020 12:00:00 AM EDT activ e Saline Nasal Berry 0.65 % eCW1 ([facility]) Mupirocin 0.02 MG/MG Topical Ointment Mupirocin 2 % Mupiroci n 2 % 09/14/2020 12:00:00 AM EDT active Mupiroci n 2 % eCW1 ([facility]) Sodium Chloride 0.111 MEQ/ML Nasal Berry Saline Nasal Berry 0.65 % Saline Nasal Berry 0.65 % 09/14/2020 12:00:00 AM EDT activ e Saline Nasal Berry 0.65 % eCW1 ([facility]) Sodium Chloride 0.111 MEQ/ML Nasal Berry Saline Nasal Berry 0.65 % Saline Nasal Berry 0.65 % 09/14/2020 12:00:00 AM EDT activ e Saline Nasal Berry 0.65 % eCW1 ([facility]) Mupirocin 0.02 MG/MG Topical Ointment Mupirocin 2 % Mupiroci n 2 % 09/14/2020 12:00:00 AM EDT active Mupiroci n 2 % eCW1 ([facility]) Mupirocin 0.02 MG/MG Topical Ointment Mupirocin 2 % Mupiroci n 2 % 09/14/2020 12:00:00 AM EDT active Mupiroci n 2 % eCW1 ([facility]) Sodium Chloride 0.111 MEQ/ML Nasal Berry Saline Nasal Berry 0.65 % Saline Nasal Berry 0.65 % 09/14/2020 12:00:00 AM EDT activ e Saline Nasal Berry 0.65 % eCW1 ([facility]) Mupirocin 0.02 MG/MG Topical Ointment Mupirocin 2 % Mupiroci n 2 % 09/14/2020 12:00:00 AM EDT active Mupiroci n 2 % eCW1 ([facility]) Mupirocin 0.02 MG/MG Topical Ointment Mupirocin 2 % Mupiroci n 2 % 09/14/2020 12:00:00 AM EDT active Mupiroci n 2 % eCW1 ([facility]) Mupirocin 0.02 MG/MG Topical Ointment Mupirocin 2 % Mupiroci n 2 % 09/14/2020 12:00:00 AM EDT active Mupiroci n 2 % eCW1 ([facility]) Mupirocin 0.02 MG/MG Topical Ointment Mupirocin 2 % Mupiroci n 2 % 09/14/2020 12:00:00 AM EDT active Mupiroci n 2 % eCW1 ([facility]) Sodium Chloride 0.111 MEQ/ML Nasal Berry Saline Nasal Berry 0.65 % Saline Nasal Berry 0.65 % 09/14/2020 12:00:00 AM EDT active eCW1 ([facility]) Mupirocin 0.02 MG/MG Topical Ointment Mupirocin 2 % Mupiroci n 2 % 09/14/2020 12:00:00 AM EDT active Mupiroci n 2 % eCW1 ([facility]) Mupirocin 0.02 MG/MG Topical Ointment Mupirocin 2 % Mupiroci n 2 % 09/14/2020 12:00:00 AM EDT active Mupiroci n 2 % eCW1 ([facility]) Sodium Chloride 0.111 MEQ/ML Nasal Berry Saline Nasal Berry 0.65 % Saline Nasal Berry 0.65 % 09/14/2020 12:00:00 AM EDT activ e Saline Nasal Berry 0.65 % eCW1 ([facility]) Sodium Chloride 0.111 MEQ/ML Nasal Berry Saline Nasal Berry 0.65 % Saline Nasal Berry 0.65 % 09/14/2020 12:00:00 AM EDT activ e Saline Nasal Berry 0.65 % eCW1 ([facility]) Sodium Chloride 0.111 MEQ/ML Nasal Berry Saline Nasal Berry 0.65 % Saline Nasal Berry 0.65 % 09/14/2020 12:00:00 AM EDT activ e Saline Nasal Berry 0.65 % eCW1 ([facility]) Sodium Chloride 0.111 MEQ/ML Nasal Berry Saline Nasal Berry 0.65 % Saline Nasal Berry 0.65 % 09/14/2020 12:00:00 AM EDT activ e Saline Nasal Berry 0.65 % eCW1 ([facility]) Mupirocin 0.02 MG/MG Topical Ointment Mupirocin 2 % Mupiroci n 2 % 09/14/2020 12:00:00 AM EDT active Mupiroci n 2 % eCW1 ([facility]) Sodium Chloride 0.111 MEQ/ML Nasal Berry Saline Nasal Berry 0.65 % Saline Nasal Berry 0.65 % 09/14/2020 12:00:00 AM EDT activ e Saline Nasal Berry 0.65 % eCW1 ([facility]) Mupirocin 0.02 MG/MG Topical Ointment Mupirocin 2 % Mupiroci n 2 % 09/14/2020 12:00:00 AM EDT active Mupiroci n 2 % eCW1 ([facility]) Sodium Chloride 0.111 MEQ/ML Nasal Berry Saline Nasal Berry 0.65 % Saline Nasal Berry 0.65 % 09/14/2020 12:00:00 AM EDT activ e Saline Nasal Berry 0.65 % eCW1 ([facility]) Mupirocin 0.02 MG/MG Topical Ointment Mupirocin 2 % Mupiroci n 2 % 09/14/2020 12:00:00 AM EDT active Mupiroci n 2 % eCW1 ([facility]) Sodium Chloride 0.111 MEQ/ML Nasal Berry Saline Nasal Berry 0.65 % Saline Nasal Berry 0.65 % 09/14/2020 12:00:00 AM EDT activ e Saline Nasal Berry 0.65 % eCW1 ([facility]) Mupirocin 0.02 MG/MG Topical Ointment Mupirocin 2 % Mupiroci n 2 % 09/14/2020 12:00:00 AM EDT active Mupiroci n 2 % eCW1 ([facility]) Mupirocin 0.02 MG/MG Topical Ointment Mupirocin 2 % Mupiroci n 2 % 09/14/2020 12:00:00 AM EDT active Mupiroci n 2 % eCW1 ([facility]) Mupirocin 0.02 MG/MG Topical Ointment Mupirocin 2 % Mupiroci n 2 % 09/14/2020 12:00:00 AM EDT active Mupiroci n 2 % eCW1 ([facility]) Saline Nasal Berry 0.65 % Saline Nasal Berry 0.65 % 09/14/2020 1 2:00:00 AM EDT active Saline Nasal Spr ay 0.65 % eCW1 ([facility]) Mupirocin 0.02 MG/MG Topical Ointment Mupirocin 2 % Mupiroci n 2 % 09/14/2020 12:00:00 AM EDT active Mupiroci n 2 % eCW1 ([facility]) Sodium Chloride 0.111 MEQ/ML Nasal Berry Saline Nasal Berry 0.65 % Saline Nasal Berry 0.65 % 09/14/2020 12:00:00 AM EDT activ e Saline Nasal Berry 0.65 % eCW1 ([facility]) Sodium Chloride 0.111 MEQ/ML Nasal Berry Saline Nasal Berry 0.65 % Saline Nasal Berry 0.65 % 09/14/2020 12:00:00 AM EDT activ e Saline Nasal Berry 0.65 % eCW1 ([facility]) Mupirocin 0.02 MG/MG Topical Ointment Mupirocin 2 % Mupiroci n 2 % 09/14/2020 12:00:00 AM EDT active Mupiroci n 2 % eCW1 ([facility]) Sodium Chloride 0.111 MEQ/ML Nasal Berry Saline Nasal Berry 0.65 % Saline Nasal Berry 0.65 % 09/14/2020 12:00:00 AM EDT activ e Saline Nasal Berry 0.65 % eCW1 ([facility]) Sodium Chloride 0.111 MEQ/ML Nasal Berry Saline Nasal Berry 0.65 % Saline Nasal Berry 0.65 % 09/14/2020 12:00:00 AM EDT activ e Saline Nasal Berry 0.65 % eCW1 ([facility]) Mupirocin 0.02 MG/MG Topical Ointment Mupirocin 2 % Mupiroci n 2 % 09/14/2020 12:00:00 AM EDT active Mupiroci n 2 % eCW1 ([facility]) Sodium Chloride 0.111 MEQ/ML Nasal Berry Saline Nasal Berry 0.65 % Saline Nasal Berry 0.65 % 09/14/2020 12:00:00 AM EDT activ e Saline Nasal Berry 0.65 % eCW1 ([facility]) Mupirocin 0.02 MG/MG Topical Ointment Mupirocin 2 % Mupiroci n 2 % 09/14/2020 12:00:00 AM EDT active Mupiroci n 2 % eCW1 ([facility]) Sodium Chloride 0.111 MEQ/ML Nasal Berry Saline Nasal Berry 0.65 % Saline Nasal Berry 0.65 % 09/14/2020 12:00:00 AM EDT activ e Saline Nasal Berry 0.65 % eCW1 ([facility]) Sodium Chloride 0.111 MEQ/ML Nasal Berry Saline Nasal Berry 0.65 % Saline Nasal Berry 0.65 % 09/14/2020 12:00:00 AM EDT activ e Saline Nasal Berry 0.65 % eCW1 ([facility]) Sodium Chloride 0.111 MEQ/ML Nasal Berry Saline Nasal Berry 0.65 % Saline Nasal Berry 0.65 % 09/14/2020 12:00:00 AM EDT activ e Saline Nasal Berry 0.65 % eCW1 ([facility]) Sodium Chloride 0.111 MEQ/ML Nasal Berry Saline Nasal Berry 0.65 % Saline Nasal Berry 0.65 % 09/14/2020 12:00:00 AM EDT activ e Saline Nasal Berry 0.65 % eCW1 ([facility]) Mupirocin 0.02 MG/MG Topical Ointment Mupirocin 2 % Mupiroci n 2 % 09/14/2020 12:00:00 AM EDT active Mupiroci n 2 % eCW1 ([facility]) Sodium Chloride 0.111 MEQ/ML Nasal Berry Saline Nasal Berry 0.65 % Saline Nasal Berry 0.65 % 09/14/2020 12:00:00 AM EDT activ e Saline Nasal Berry 0.65 % eCW1 ([facility]) Mupirocin 0.02 MG/MG Topical Ointment Mupirocin 2 % Mupiroci n 2 % 09/14/2020 12:00:00 AM EDT active Mupiroci n 2 % eCW1 ([facility]) Sodium Chloride 0.111 MEQ/ML Nasal Berry Saline Nasal Berry 0.65 % Saline Nasal Berry 0.65 % 09/14/2020 12:00:00 AM EDT activ e Saline Nasal Berry 0.65 % eCW1 ([facility]) Mupirocin 0.02 MG/MG Topical Ointment Mupirocin 2 % Mupiroci n 2 % 09/14/2020 12:00:00 AM EDT active e CW1 ([facility]) Sodium Chloride 0.111 MEQ/ML Nasal Berry Saline Nasal Berry 0.65 % Saline Nasal Berry 0.65 % 09/14/2020 12:00:00 AM EDT activ e Saline Nasal Berry 0.65 % eCW1 ([facility]) Sodium Chloride 0.111 MEQ/ML Nasal Berry Saline Nasal Berry 0.65 % Saline Nasal Berry 0.65 % 09/14/2020 12:00:00 AM EDT activ e Saline Nasal Berry 0.65 % eCW1 ([facility]) Mupirocin 0.02 MG/MG Topical Ointment Mupirocin 2 % Mupiroci n 2 % 09/14/2020 12:00:00 AM EDT active Mupiroci n 2 % eCW1 ([facility]) Mupirocin 0.02 MG/MG Topical Ointment Mupirocin 2 % Mupiroci n 2 % 09/14/2020 12:00:00 AM EDT active Mupiroci n 2 % eCW1 ([facility]) Sodium Chloride 0.111 MEQ/ML Nasal Berry Saline Nasal Berry 0.65 % Saline Nasal Berry 0.65 % 09/14/2020 12:00:00 AM EDT activ e Saline Nasal Berry 0.65 % eCW1 ([facility]) Sodium Chloride 0.111 MEQ/ML Nasal Berry Saline Nasal Berry 0.65 % Saline Nasal Berry 0.65 % 09/14/2020 12:00:00 AM EDT activ e Saline Nasal Berry 0.65 % eCW1 ([facility]) Mupirocin 0.02 MG/MG Topical Ointment Mupirocin 2 % Mupiroci n 2 % 09/14/2020 12:00:00 AM EDT active Mupiroci n 2 % eCW1 ([facility]) Mupirocin 0.02 MG/MG Topical Ointment Mupirocin 2 % Mupiroci n 2 % 09/14/2020 12:00:00 AM EDT active Mupiroci n 2 % eCW1 ([facility]) Mupirocin 0.02 MG/MG Topical Ointment Mupirocin 2 % Mupiroci n 2 % 09/14/2020 12:00:00 AM EDT active Mupiroci n 2 % eCW1 ([facility]) Mupirocin 0.02 MG/MG Topical Ointment Mupirocin 2 % Mupiroci n 2 % 09/14/2020 12:00:00 AM EDT active Mupiroci n 2 % eCW1 ([facility]) Sodium Chloride 0.111 MEQ/ML Nasal Berry Saline Nasal Berry 0.65 % Saline Nasal Berry 0.65 % 09/14/2020 12:00:00 AM EDT activ e Saline Nasal Berry 0.65 % eCW1 ([facility]) Sodium Chloride 0.111 MEQ/ML Nasal Berry Saline Nasal Berry 0.65 % Saline Nasal Berry 0.65 % 09/14/2020 12:00:00 AM EDT activ e Saline Nasal Berry 0.65 % eCW1 ([facility]) Sodium Chloride 0.111 MEQ/ML Nasal Berry Saline Nasal Berry 0.65 % Saline Nasal Berry 0.65 % 09/14/2020 12:00:00 AM EDT activ e Saline Nasal Berry 0.65 % eCW1 ([facility]) Sodium Chloride 0.111 MEQ/ML Nasal Berry Saline Nasal Berry 0.65 % Saline Nasal Berry 0.65 % 09/14/2020 12:00:00 AM EDT activ e Saline Nasal Berry 0.65 % eCW1 ([facility]) Mupirocin 0.02 MG/MG Topical Ointment Mupirocin 2 % Mupiroci n 2 % 09/14/2020 12:00:00 AM EDT active Mupiroci n 2 % eCW1 ([facility]) Mupirocin 0.02 MG/MG Topical Ointment Mupirocin 2 % Mupiroci n 2 % 09/14/2020 12:00:00 AM EDT active Mupiroci n 2 % eCW1 ([facility]) Mupirocin 0.02 MG/MG Topical Ointment Mupirocin 2 % Mupiroci n 2 % 09/14/2020 12:00:00 AM EDT active Mupiroci n 2 % eCW1 ([facility]) Sodium Chloride 0.111 MEQ/ML Nasal Berry Saline Nasal Berry 0.65 % Saline Nasal Berry 0.65 % 09/14/2020 12:00:00 AM EDT activ e Saline Nasal Berry 0.65 % eCW1 ([facility]) Mupirocin 0.02 MG/MG Topical Ointment Mupirocin 2 % Mupiroci n 2 % 09/14/2020 12:00:00 AM EDT active Mupiroci n 2 % eCW1 ([facility]) Mupirocin 0.02 MG/MG Topical Ointment Mupirocin 2 % Mupiroci n 2 % 09/14/2020 12:00:00 AM EDT active e CW1 ([facility]) Sodium Chloride 0.111 MEQ/ML Nasal Berry Saline Nasal Berry 0.65 % Saline Nasal Berry 0.65 % 09/14/2020 12:00:00 AM EDT activ e Saline Nasal Berry 0.65 % eCW1 ([facility]) Mupirocin 0.02 MG/MG Topical Ointment Mupirocin 2 % Mupiroci n 2 % 09/14/2020 12:00:00 AM EDT active Mupiroci n 2 % eCW1 ([facility]) Mupirocin 0.02 MG/MG Topical Ointment Mupirocin 2 % Mupiroci n 2 % 09/14/2020 12:00:00 AM EDT active Mupiroci n 2 % eCW1 ([facility]) Sodium Chloride 0.111 MEQ/ML Nasal Berry Saline Nasal Berry 0.65 % Saline Nasal Berry 0.65 % 09/14/2020 12:00:00 AM EDT activ e Saline Nasal Berry 0.65 % eCW1 ([facility]) Mupirocin 0.02 MG/MG Topical Ointment Mupirocin 2 % Mupiroci n 2 % 09/14/2020 12:00:00 AM EDT active Mupiroci n 2 % eCW1 ([facility]) Mupirocin 0.02 MG/MG Topical Ointment Mupirocin 2 % Mupiroci n 2 % 09/14/2020 12:00:00 AM EDT active Mupiroci n 2 % eCW1 ([facility]) Mupirocin 0.02 MG/MG Topical Ointment Mupirocin 2 % Mupiroci n 2 % 09/14/2020 12:00:00 AM EDT active Mupiroci n 2 % eCW1 ([facility]) Sodium Chloride 0.111 MEQ/ML Nasal Berry Saline Nasal Berry 0.65 % Saline Nasal Berry 0.65 % 09/14/2020 12:00:00 AM EDT activ e Saline Nasal Berry 0.65 % eCW1 ([facility]) Sodium Chloride 0.111 MEQ/ML Nasal Berry Saline Nasal Berry 0.65 % Saline Nasal Berry 0.65 % 09/14/2020 12:00:00 AM EDT activ e Saline Nasal Berry 0.65 % eCW1 ([facility]) Sodium Chloride 0.111 MEQ/ML Nasal Berry Saline Nasal Berry 0.65 % Saline Nasal Berry 0.65 % 09/14/2020 12:00:00 AM EDT activ e Saline Nasal Berry 0.65 % eCW1 ([facility]) Mupirocin 0.02 MG/MG Topical Ointment Mupirocin 2 % Mupiroci n 2 % 09/14/2020 12:00:00 AM EDT active Mupiroci n 2 % eCW1 ([facility]) 0.65 % 09/14/2020 12:00:00 AM EDT aerosol,spray 44 SPRAY 1-2 SPRAYS IN RIGHT NOSTRIL 2-3 TIMES A DAY FOR 7 DAYS SPRAY 1-2 SPRAYS IN RIGHT NOSTRIL 2-3 TI MES A DAY FOR 7 DAYS SOLD: 09/14/2020 [facility] 2 % 09/14/2020 12:00:00 AM EDT ointment 22 APPLY A SMALL AMOUNT TO RIGHT NOSTRIL WITH Q-TIP TWICE A DAY FOR 7 DAYS APPLY A SMALL AMOUNT TO RIGHT NOSTRIL WITH Q-TIP TWICE A DAY FOR 7 DAYS SOLD: 09/14/2020 [facility] Sodium Chloride 0.111 MEQ/ML Nasal Berry Saline Nasal Berry 0.65 % Saline Nasal Berry 0.65 % 09/14/2020 12:00:00 AM EDT activ e Saline Nasal Berry 0.65 % eCW1 ([facility]) Sodium Chloride 0.111 MEQ/ML Nasal Berry Saline Nasal Berry 0.65 % Saline Nasal Berry 0.65 % 09/14/2020 12:00:00 AM EDT activ e Saline Nasal Berry 0.65 % eCW1 ([facility]) Sodium Chloride 0.111 MEQ/ML Nasal Berry Saline Nasal Berry 0.65 % Saline Nasal Berry 0.65 % 09/14/2020 12:00:00 AM EDT activ e Saline Nasal Berry 0.65 % eCW1 ([facility]) Sodium Chloride 0.111 MEQ/ML Nasal Berry Saline Nasal Berry 0.65 % Saline Nasal Berry 0.65 % 09/14/2020 12:00:00 AM EDT activ e Saline Nasal Berry 0.65 % eCW1 ([facility]) Mupirocin 0.02 MG/MG Topical Ointment Mupirocin 2 % Mupiroci n 2 % 09/14/2020 12:00:00 AM EDT active Mupiroci n 2 % eCW1 ([facility]) Mupirocin 0.02 MG/MG Topical Ointment Mupirocin 2 % Mupiroci n 2 % 09/14/2020 12:00:00 AM EDT active Mupiroci n 2 % eCW1 ([facility]) Sodium Chloride 0.111 MEQ/ML Nasal Berry Saline Nasal Berry 0.65 % Saline Nasal Berry 0.65 % 09/14/2020 12:00:00 AM EDT activ e Saline Nasal Berry 0.65 % eCW1 ([facility]) Mupirocin 0.02 MG/MG Topical Ointment Mupirocin 2 % Mupiroci n 2 % 09/14/2020 12:00:00 AM EDT active Mupiroci n 2 % eCW1 ([facility]) Mupirocin 0.02 MG/MG Topical Ointment Mupirocin 2 % Mupiroci n 2 % 09/14/2020 12:00:00 AM EDT active Mupiroci n 2 % eCW1 ([facility]) Sodium Chloride 0.111 MEQ/ML Nasal Berry Saline Nasal Berry 0.65 % Saline Nasal Berry 0.65 % 09/14/2020 12:00:00 AM EDT activ e Saline Nasal Berry 0.65 % eCW1 ([facility]) Mupirocin 0.02 MG/MG Topical Ointment Mupirocin 2 % Mupiroci n 2 % 09/14/2020 12:00:00 AM EDT active Mupiroci n 2 % eCW1 ([facility]) Mupirocin 0.02 MG/MG Topical Ointment Mupirocin 2 % Mupiroci n 2 % 09/14/2020 12:00:00 AM EDT active Mupiroci n 2 % eCW1 ([facility]) Mupirocin 0.02 MG/MG Topical Ointment Mupirocin 2 % Mupiroci n 2 % 09/14/2020 12:00:00 AM EDT active Mupiroci n 2 % eCW1 ([facility]) Sodium Chloride 0.111 MEQ/ML Nasal Berry Saline Nasal Berry 0.65 % Saline Nasal Berry 0.65 % 09/14/2020 12:00:00 AM EDT activ e Saline Nasal Berry 0.65 % eCW1 ([facility]) Sodium Chloride 0.111 MEQ/ML Nasal Berry Saline Nasal Berry 0.65 % Saline Nasal Berry 0.65 % 09/14/2020 12:00:00 AM EDT activ e Saline Nasal Berry 0.65 % eCW1 ([facility]) Sodium Chloride 0.111 MEQ/ML Nasal Berry Saline Nasal Berry 0.65 % Saline Nasal Berry 0.65 % 09/14/2020 12:00:00 AM EDT activ e Saline Nasal Berry 0.65 % eCW1 ([facility]) Sodium Chloride 0.111 MEQ/ML Nasal Berry Saline Nasal Berry 0.65 % Saline Nasal Berry 0.65 % 09/14/2020 12:00:00 AM EDT activ e Saline Nasal Berry 0.65 % eCW1 ([facility]) Mupirocin 0.02 MG/MG Topical Ointment Mupirocin 2 % Mupiroci n 2 % 09/14/2020 12:00:00 AM EDT active Mupiroci n 2 % eCW1 ([facility]) Sodium Chloride 0.111 MEQ/ML Nasal Berry Saline Nasal Berry 0.65 % Saline Nasal Berry 0.65 % 09/14/2020 12:00:00 AM EDT activ e Saline Nasal Berry 0.65 % eCW1 ([facility]) Sodium Chloride 0.111 MEQ/ML Nasal Berry Saline Nasal Berry 0.65 % Saline Nasal Berry 0.65 % 09/14/2020 12:00:00 AM EDT activ e Saline Nasal Berry 0.65 % eCW1 ([facility]) Mupirocin 0.02 MG/MG Topical Ointment Mupirocin 2 % Mupiroci n 2 % 09/14/2020 12:00:00 AM EDT active Mupiroci n 2 % eCW1 ([facility]) Sodium Chloride 0.111 MEQ/ML Nasal Berry Saline Nasal Berry 0.65 % Saline Nasal Berry 0.65 % 09/14/2020 12:00:00 AM EDT activ e Saline Nasal Berry 0.65 % eCW1 ([facility]) Sodium Chloride 0.111 MEQ/ML Nasal Berry Saline Nasal Berry 0.65 % Saline Nasal Berry 0.65 % 09/14/2020 12:00:00 AM EDT activ e Saline Nasal Berry 0.65 % eCW1 ([facility]) Mupirocin 0.02 MG/MG Topical Ointment Mupirocin 2 % Mupiroci n 2 % 09/14/2020 12:00:00 AM EDT active Mupiroci n 2 % eCW1 ([facility]) Mupirocin 0.02 MG/MG Topical Ointment Mupirocin 2 % Mupiroci n 2 % 09/14/2020 12:00:00 AM EDT active Mupiroci n 2 % eCW1 ([facility]) Sodium Chloride 0.111 MEQ/ML Nasal Berry Saline Nasal Berry 0.65 % Saline Nasal Berry 0.65 % 09/14/2020 12:00:00 AM EDT active eCW1 ([facility]) Mupirocin 0.02 MG/MG Topical Ointment Mupirocin 2 % Mupiroci n 2 % 09/14/2020 12:00:00 AM EDT active Mupiroci n 2 % eCW1 ([facility]) Mupirocin 0.02 MG/MG Topical Ointment Mupirocin 2 % [facility]upiroci n 2 % 09/14/2020 12:00:00 AM EDT active Mupiroci n 2 % eCW1 ([facility]) Mupirocin 0.02 MG/MG Topical Ointment Mupirocin 2 % [facility]upiroci n 2 % 09/14/2020 12:00:00 AM EDT active Mupiroci n 2 % eCW1 ([facility]) Mupirocin 0.02 MG/MG Topical Ointment Mupirocin 2 % [facility]iroci n 2 % 09/14/2020 12:00:00 AM EDT active Mupiroci n 2 % eCW1 ([facility]) Sodium Chloride 0.111 MEQ/ML Nasal Berry Saline Nasal Berry 0.65 % Saline Nasal Berry 0.65 % 09/14/2020 12:00:00 AM EDT activ e Saline Nasal Berry 0.65 % eCW1 ([facility]) Mupirocin 0.02 MG/MG Topical Ointment Mupirocin 2 % Mupiroci n 2 % 09/14/2020 12:00:00 AM EDT active Mupiroci n 2 % eCW1 ([facility]) Cephalexin 500 MG Oral Capsule Cephalexin 500 MG 09/04/2020 12:00:0 0 AM EDT 1.0 {capsule} active eCW1 ([facility]) Cephalexin 500 MG Oral Capsule Cephalexin 500 MG 09/04/2020 12:00:0 0 AM EDT 1.0 {capsule} active Cephalexin 500 MG eCW1 ([facility]) Cephalexin 500 MG Oral Capsule Cephalexin 500 MG 09/04/2020 12:00:0 0 AM EDT 1.0 {capsule} active Cephalexin 500 MG eCW1 ([facility]) Cephalexin 500 MG Oral Capsule Cephalexin 500 MG 09/04/2020 12:00:0 0 AM EDT 1.0 {capsule} active Cephalexin 500 MG eCW1 ([facility]) Cephalexin 500 MG Oral Capsule Cephalexin 500 MG 09/04/2020 12:00:0 0 AM EDT 1.0 {capsule} active Cephalexin 500 MG eCW1 ([facility]) Cephalexin 500 MG Oral Capsule Cephalexin 500 MG 09/04/2020 12:00:0 0 AM EDT 1.0 {capsule} active Cephalexin 500 MG eCW1 ([facility]) Cephalexin 500 MG Oral Capsule Cephalexin 500 MG 09/04/2020 12:00:0 0 AM EDT 1.0 {capsule} active Cephalexin 500 MG eCW1 ([facility]) Cephalexin 500 MG Oral Capsule Cephalexin 500 MG 09/04/2020 12:00:0 0 AM EDT 1.0 {capsule} active Cephalexin 500 MG eCW1 ([facility]) Cephalexin 500 MG Oral Capsule Cephalexin 500 MG 09/04/2020 12:00:0 0 AM EDT 1.0 {capsule} active Cephalexin 500 MG eCW1 ([facility]) Cephalexin 500 MG Oral Capsule Cephalexin 500 MG 09/04/2020 12:00:0 0 AM EDT 1.0 {capsule} active Cephalexin 500 MG eCW1 ([facility]) Cephalexin 500 MG Oral Capsule Cephalexin 500 MG 09/04/2020 12:00:0 0 AM EDT 1.0 {capsule} active Cephalexin 500 MG eCW1 ([facility]) Cephalexin 500 MG Oral Capsule Cephalexin 500 MG 09/04/2020 12:00:0 0 AM EDT 1.0 {capsule} active Cephalexin 500 MG eCW1 ([facility]) Cephalexin 500 MG Oral Capsule Cephalexin 500 MG 09/04/2020 12:00:0 0 AM EDT 1.0 {capsule} active Cephalexin 500 MG eCW1 ([facility]) Cephalexin 500 MG Oral Capsule Cephalexin 500 MG 09/04/2020 12:00:0 0 AM EDT 1.0 {capsule} active Cephalexin 500 MG eCW1 ([facility]) Cephalexin 500 MG Oral Capsule Cephalexin 500 MG 09/04/2020 12:00:0 0 AM EDT 1.0 {capsule} active Cephalexin 500 MG eCW1 ([facility]) Cephalexin 500 MG Oral Capsule CEPHALEXIN 09/04/2020 12:00:00 AM EDT capsule 28 TAKE ONE CAPSULE BY MOUTH EVERY 6 HOURS FOR 7 DAYS JE E ONE CAPSULE BY MOUTH EVERY 6 HOURS FOR 7 DAYS SOLD: 09/04/2020 [facility] Cephalexin 500 MG Oral Capsule Cephalexin 500 MG 09/04/2020 12:00:0 0 AM EDT 1.0 {capsule} active Cephalexin 500 MG eCW1 ([facility]) Cephalexin 500 MG Oral Capsule Cephalexin 500 MG 09/04/2020 12:00:0 0 AM EDT 1.0 {capsule} active Cephalexin 500 MG eCW1 ([facility]) Cephalexin 500 MG Oral Capsule Cephalexin 500 MG 09/04/2020 12:00:0 0 AM EDT 1.0 {capsule} active Cephalexin 500 MG eCW1 ([facility]) Cephalexin 500 MG Oral Capsule Cephalexin 500 MG 09/04/2020 12:00:0 0 AM EDT 1.0 {capsule} active Cephalexin 500 MG eCW1 ([facility]) Cephalexin 500 MG Oral Capsule Cephalexin 500 MG 09/04/2020 12:00:0 0 AM EDT 1.0 {capsule} active Cephalexin 500 MG eCW1 ([facility]) Cephalexin 500 MG Oral Capsule Cephalexin 500 MG 09/04/2020 12:00:0 0 AM EDT 1.0 {capsule} active Cephalexin 500 MG eCW1 ([facility]) Cephalexin 500 MG Oral Capsule Cephalexin 500 MG 09/04/2020 12:00:0 0 AM EDT 1.0 {capsule} active Cephalexin 500 MG eCW1 ([facility]) Cephalexin 500 MG Oral Capsule Cephalexin 500 MG 09/04/2020 12:00:0 0 AM EDT 1.0 {capsule} active Cephalexin 500 MG eCW1 ([facility]) Cephalexin 500 MG Oral Capsule Cephalexin 500 MG 09/04/2020 12:00:0 0 AM EDT 1.0 {capsule} active Cephalexin 500 MG eCW1 ([facility]) Cephalexin 500 MG Oral Capsule Cephalexin 500 MG 09/04/2020 12:00:0 0 AM EDT 1.0 {capsule} active Cephalexin 500 MG eCW1 ([facility]) Cephalexin 500 MG Oral Capsule Cephalexin 500 MG 09/04/2020 12:00:0 0 AM EDT 1.0 {capsule} active Cephalexin 500 MG eCW1 ([facility]) Cephalexin 500 MG Oral Capsule Cephalexin 500 MG 09/04/2020 12:00:0 0 AM EDT 1.0 {capsule} active Cephalexin 500 MG eCW1 ([facility]) Cephalexin 500 MG Oral Capsule Cephalexin 500 MG 09/04/2020 12:00:0 0 AM EDT 1.0 {capsule} active Cephalexin 500 MG eCW1 ([facility]) Cephalexin 500 MG Oral Capsule Cephalexin 500 MG 09/04/2020 12:00:0 0 AM EDT 1.0 {capsule} active eCW1 ([facility]) Cephalexin 500 MG Oral Capsule Cephalexin 500 MG 09/04/2020 12:00:0 0 AM EDT 1.0 {capsule} active Cephalexin 500 MG eCW1 ([facility]) Cephalexin 500 MG Oral Capsule Cephalexin 500 MG 09/04/2020 12:00:0 0 AM EDT 1.0 {capsule} active Cephalexin 500 MG eCW1 ([facility]) Cephalexin 500 MG Oral Capsule Cephalexin 500 MG 09/04/2020 12:00:0 0 AM EDT 1.0 {capsule} active Cephalexin 500 MG eCW1 ([facility]) Cephalexin 500 MG Oral Capsule Cephalexin 500 MG 09/04/2020 12:00:0 0 AM EDT 1.0 {capsule} active Cephalexin 500 MG eCW1 ([facility]) Cephalexin 500 MG Oral Capsule Cephalexin 500 MG 09/04/2020 12:00:0 0 AM EDT 1.0 {capsule} active Cephalexin 500 MG eCW1 ([facility]) Cephalexin 500 MG Oral Capsule Cephalexin 500 MG 09/04/2020 12:00:0 0 AM EDT 1.0 {capsule} active Cephalexin 500 MG eCW1 ([facility]) Cephalexin 500 MG Oral Capsule Cephalexin 500 MG 09/04/2020 12:00:0 0 AM EDT 1.0 {capsule} active Cephalexin 500 MG eCW1 ([facility]) Cephalexin 500 MG Oral Capsule Cephalexin 500 MG 09/04/2020 12:00:0 0 AM EDT 1.0 {capsule} active Cephalexin 500 MG eCW1 ([facility]) Cephalexin 500 MG Oral Capsule Cephalexin 500 MG 09/04/2020 12:00:0 0 AM EDT 1.0 {capsule} active Cephalexin 500 MG eCW1 ([facility]) Cephalexin 500 MG Oral Capsule Cephalexin 500 MG 09/04/2020 12:00:0 0 AM EDT 1.0 {capsule} active Cephalexin 500 MG eCW1 ([facility]) Cephalexin 500 MG Oral Capsule Cephalexin 500 MG 09/04/2020 12:00:0 0 AM EDT 1.0 {capsule} active Cephalexin 500 MG eCW1 ([facility]) 2 % 09/04/2020 12:00:00 AM EDT ointment 22 APPLY TO THE LEFT LITTLE FINGER TWO TIMES A DAY APPLY TO THE LEFT LITTLE FINGER TWO TIMES A DAY SOLD: 09/04/2020 [facility] Cephalexin 500 MG Oral Capsule Cephalexin 500 MG 09/04/2020 12:00:0 0 AM EDT 1.0 {capsule} active Cephalexin 500 MG eCW1 ([facility]) Cephalexin 500 MG Oral Capsule Cephalexin 500 MG 09/04/2020 12:00:0 0 AM EDT 1.0 {capsule} active Cephalexin 500 MG eCW1 ([facility]) Cephalexin 500 MG Oral Capsule Cephalexin 500 MG 09/04/2020 12:00:0 0 AM EDT 1.0 {capsule} active Cephalexin 500 MG eCW1 ([facility]) Cephalexin 500 MG Oral Capsule Cephalexin 500 MG 09/04/2020 12:00:0 0 AM EDT 1.0 {capsule} active Cephalexin 500 MG eCW1 ([facility]) Cephalexin 500 MG Oral Capsule Cephalexin 500 MG 09/04/2020 12:00:0 0 AM EDT 1.0 {capsule} active Cephalexin 500 MG eCW1 ([facility]) Cephalexin 500 MG Oral Capsule Cephalexin 500 MG 09/04/2020 12:00:0 0 AM EDT 1.0 {capsule} active Cephalexin 500 MG eCW1 ([facility]) Cephalexin 500 MG Oral Capsule Cephalexin 500 MG 09/04/2020 12:00:0 0 AM EDT 1.0 {capsule} active Cephalexin 500 MG eCW1 ([facility]) Cephalexin 500 MG Oral Capsule Cephalexin 500 MG 09/04/2020 12:00:0 0 AM EDT 1.0 {capsule} active eCW1 ([facility]) Cephalexin 500 MG Oral Capsule Cephalexin 500 MG 09/04/2020 12:00:0 0 AM EDT 1.0 {capsule} active Cephalexin 500 MG eCW1 ([facility]) Cephalexin 500 MG Oral Capsule Cephalexin 500 MG 09/04/2020 12:00:0 0 AM EDT 1.0 {capsule} active Cephalexin 500 MG eCW1 ([facility]) Cephalexin 500 MG Oral Capsule Cephalexin 500 MG 09/04/2020 12:00:0 0 AM EDT 1.0 {capsule} active Cephalexin 500 MG eCW1 ([facility]) Cephalexin 500 MG Oral Capsule Cephalexin 500 MG 09/04/2020 12:00:0 0 AM EDT 1.0 {capsule} active Cephalexin 500 MG eCW1 ([facility]) Cephalexin 500 MG Oral Capsule Cephalexin 500 MG 09/04/2020 12:00:0 0 AM EDT 1.0 {capsule} active Cephalexin 500 MG eCW1 ([facility]) Cephalexin 500 MG Oral Capsule Cephalexin 500 MG 09/04/2020 12:00:0 0 AM EDT 1.0 {capsule} active Cephalexin 500 MG eCW1 ([facility]) Cephalexin 500 MG Oral Capsule Cephalexin 500 MG 09/04/2020 12:00:0 0 AM EDT 1.0 {capsule} active Cephalexin 500 MG eCW1 ([facility]) Cephalexin 500 MG Oral Capsule Cephalexin 500 MG 09/04/2020 12:00:0 0 AM EDT 1.0 {capsule} active Cephalexin 500 MG eCW1 ([facility]) Cephalexin 500 MG Oral Capsule Cephalexin 500 MG 09/04/2020 12:00:0 0 AM EDT 1.0 {capsule} active Cephalexin 500 MG eCW1 ([facility]) Cephalexin 500 MG Oral Capsule Cephalexin 500 MG 09/04/2020 12:00:0 0 AM EDT 1.0 {capsule} active Cephalexin 500 MG eCW1 ([facility]) Cephalexin 500 MG Oral Capsule Cephalexin 500 MG 09/04/2020 12:00:0 0 AM EDT 1.0 {capsule} active Cephalexin 500 MG eCW1 ([facility]) Cephalexin 500 MG Oral Capsule Cephalexin 500 MG 09/04/2020 12:00:0 0 AM EDT 1.0 {capsule} active Cephalexin 500 MG eCW1 ([facility]) Cephalexin 500 MG Oral Capsule Cephalexin 500 MG 09/04/2020 12:00:0 0 AM EDT 1.0 {capsule} active Cephalexin 500 MG eCW1 ([facility]) Cephalexin 500 MG Oral Capsule Cephalexin 500 MG 09/04/2020 12:00:0 0 AM EDT 1.0 {capsule} active Cephalexin 500 MG eCW1 ([facility]) Cephalexin 500 MG Oral Capsule Cephalexin 500 MG 09/04/2020 12:00:0 0 AM EDT 1.0 {capsule} active Cephalexin 500 MG eCW1 ([facility]) Cephalexin 500 MG Oral Capsule Cephalexin 500 MG 09/04/2020 12:00:0 0 AM EDT 1.0 {capsule} active Cephalexin 500 MG eCW1 ([facility]) Cephalexin 500 MG Oral Capsule Cephalexin 500 MG 09/04/2020 12:00:0 0 AM EDT 1.0 {capsule} active Cephalexin 500 MG eCW1 ([facility]) 50 mg 09/03/2020 12:00:00 AM EDT tablet 120 TAKE ONE TABLET BY MOUTH EVERY MORNING AND 3 TABLETS BY MOUTH AT BEDTIME TAKE ONE TABLET BY MOUTH EVERY MORNING AND 3 TABLETS BY MOUTH AT BEDTIME SOLD: 11/19/2020 [facility] 50 mg 09/03/2020 12:00:00 AM EDT tablet 120 TAKE ONE TABLET BY MOUTH EVERY MORNING AND 3 TABLETS BY MOUTH AT BEDTIME TAKE ONE TABLET BY MOUTH EVERY MORNING AND 3 TABLETS BY MOUTH AT BEDTIME SOLD: 09/03/2020 [facility] 50 mg 09/03/2020 12:00:00 AM EDT tablet 120 TAKE ONE TABLET BY MOUTH EVERY MORNING AND 3 TABLETS BY MOUTH AT BEDTIME TAKE ONE TABLET BY MOUTH EVERY MORNING AND 3 TABLETS BY MOUTH AT BEDTIME SOLD: 12/18/2020 [facility] 50 mg 09/03/2020 12:00:00 AM EDT tablet 120 TAKE ONE TABLET BY MOUTH EVERY MORNING AND 3 TABLETS BY MOUTH AT BEDTIME TAKE ONE TABLET BY MOUTH EVERY MORNING AND 3 TABLETS BY MOUTH AT BEDTIME SOLD: 2020 [facility] 50 mg 09/03/2020 12:00:00 AM EDT tablet 120 TAKE ONE TABLET BY MOUTH EVERY MORNING AND 3 TABLETS BY MOUTH AT BEDTIME TAKE ONE TABLET BY MOUTH EVERY MORNING AND 3 TABLETS BY MOUTH AT BEDTIME SOLD: 10/21/2020 [facility] 50 mg 09/03/2020 12:00:00 AM EDT tablet 120 TAKE ONE TABLET BY MOUTH EVERY MORNING AND 3 TABLETS BY MOUTH AT BEDTIME TAKE ONE TABLET BY MOUTH EVERY MORNING AND 3 TABLETS BY MOUTH AT BEDTIME SOLD: 01/15/2021 [facility] 2 mg 09/02/2020 12:00:00 AM EDT tablet 112 TAKE ONE TABLET BY MOUTH EVERY 6 HOURS NEEDED MAXIMUM DAILY DOSE = 4 TABLETS TAKE ONE TABLET BY MOUTH EVERY 6 HOURS NEEDED MAXIMUM DAILY DOSE = 4 TABLETS SOLD: 09/02/2020 [facility] Bactroban 2% UNK 09/01/2020 12:00:00 AM EDT activ e Bactroban 2% eCW1 ([facility]) Bactroban 2% UNK 09/01/2020 12:00:00 AM EDT activ e Bactroban 2% eCW1 ([facility]) Bactroban 2% UNK 09/01/2020 12:00:00 AM EDT activ e Bactroban 2% eCW1 ([facility]) Bactroban 2% UNK 09/01/2020 12:00:00 AM EDT activ e Bactroban 2% eCW1 ([facility]) Bactroban 2% UNK 09/01/2020 12:00:00 AM EDT activ e Bactroban 2% eCW1 ([facility]) Bactroban 2% UNK 09/01/2020 12:00:00 AM EDT activ e Bactroban 2% eCW1 ([facility]) Bactroban 2% UNK 09/01/2020 12:00:00 AM EDT activ e Bactroban 2% eCW1 ([facility]) Hydromorphone Hydrochloride 2 MG Oral Tablet HYDROmorp nellie HCl 2 MG HYDROmorphone HCl 2 MG 09/01/2020 12:00:00 AM EDT 1.0 {tablet_as_need ed} active HYDROmorphone HCl 2 MG eCW1 ([facility]) Bactroban 2% UNK 09/01/2020 12:00:00 AM EDT activ e Bactroban 2% eCW1 ([facility]) Hydromorphone Hydrochloride 2 MG Oral Tablet Hydromorp nellie HCl 2 MG Hydromorphone HCl 2 MG 09/01/2020 12:00:00 AM EDT 1.0 {tablet_as_need ed} active Hydromorphone HCl 2 MG eCW1 ([facility]) Bactroban 2% UNK 09/01/2020 12:00:00 AM EDT activ e eCW1 ([facility]) Bactroban 2% UNK 09/01/2020 12:00:00 AM EDT activ e Bactroban 2% eCW1 ([facility]) Bactroban 2% UNK 09/01/2020 12:00:00 AM EDT activ e Bactroban 2% eCW1 ([facility]) Bactroban 2% UNK 09/01/2020 12:00:00 AM EDT activ e Bactroban 2% eCW1 ([facility]) Bactroban 2% UNK 09/01/2020 12:00:00 AM EDT activ e Bactroban 2% eCW1 ([facility]) Bactroban 2% UNK 09/01/2020 12:00:00 AM EDT activ e Bactroban 2% eCW1 ([facility]) Bactroban 2% UNK 09/01/2020 12:00:00 AM EDT activ e Bactroban 2% eCW1 ([facility]) Bactroban 2% UNK 09/01/2020 12:00:00 AM EDT activ e Bactroban 2% eCW1 ([facility]) Bactroban 2% UNK 09/01/2020 12:00:00 AM EDT activ e Bactroban 2% eCW1 ([facility]) Hydromorphone Hydrochloride 2 MG Oral Tablet Hydromorp nellie HCl 2 MG Hydromorphone HCl 2 MG 09/01/2020 12:00:00 AM EDT 1.0 {tablet_as_need ed} active Hydromorphone HCl 2 MG eCW1 ([facility]) Hydromorphone Hydrochloride 2 MG Oral Tablet HYDROmorp nellie HCl 2 MG HYDROmorphone HCl 2 MG 09/01/2020 12:00:00 AM EDT 1.0 {tablet_as_need ed} active HYDROmorphone HCl 2 MG eCW1 ([facility]) Bactroban 2% UNK 09/01/2020 12:00:00 AM EDT activ e Bactroban 2% eCW1 ([facility]) Bactroban 2% UNK 09/01/2020 12:00:00 AM EDT activ e Bactroban 2% eCW1 ([facility]) Bactroban 2% UNK 09/01/2020 12:00:00 AM EDT activ e Bactroban 2% eCW1 ([facility]) Bactroban 2% UNK 09/01/2020 12:00:00 AM EDT activ e Bactroban 2% eCW1 ([facility]) Bactroban 2% UNK 09/01/2020 12:00:00 AM EDT activ e Bactroban 2% eCW1 ([facility]) Bactroban 2% UNK 09/01/2020 12:00:00 AM EDT activ e Bactroban 2% eCW1 ([facility]) Bactroban 2% UNK 09/01/2020 12:00:00 AM EDT activ e Bactroban 2% eCW1 ([facility]) Bactroban 2% UNK 09/01/2020 12:00:00 AM EDT activ e Bactroban 2% eCW1 ([facility]) Bactroban 2% UNK 09/01/2020 12:00:00 AM EDT activ e Bactroban 2% eCW1 ([facility]) Hydromorphone Hydrochloride 2 MG Oral Tablet Hydromorp nellie HCl 2 MG Hydromorphone HCl 2 MG 09/01/2020 12:00:00 AM EDT 1.0 {tablet_as_need ed} active Hydromorphone HCl 2 MG eCW1 ([facility]) Hydromorphone Hydrochloride 2 MG Oral Tablet Hydromorp nellie HCl 2 MG Hydromorphone HCl 2 MG 09/01/2020 12:00:00 AM EDT 1.0 {tablet_as_need ed} active Hydromorphone HCl 2 MG eCW1 ([facility]) Bactroban 2% UNK 09/01/2020 12:00:00 AM EDT activ e Bactroban 2% eCW1 ([facility]) Bactroban 2% UNK 09/01/2020 12:00:00 AM EDT activ e Bactroban 2% eCW1 ([facility]) Bactroban 2% UNK 09/01/2020 12:00:00 AM EDT activ e Bactroban 2% eCW1 ([facility]) Bactroban 2% UNK 09/01/2020 12:00:00 AM EDT activ e Bactroban 2% eCW1 ([facility]) Bactroban 2% UNK 09/01/2020 12:00:00 AM EDT activ e Bactroban 2% eCW1 ([facility]) Bactroban 2% UNK 09/01/2020 12:00:00 AM EDT activ e Bactroban 2% eCW1 ([facility]) Bactroban 2% UNK 09/01/2020 12:00:00 AM EDT activ e Bactroban 2% eCW1 ([facility]) Bactroban 2% UNK 09/01/2020 12:00:00 AM EDT activ e Bactroban 2% eCW1 ([facility]) Bactroban 2% UNK 09/01/2020 12:00:00 AM EDT activ e Bactroban 2% eCW1 ([facility]) Bactroban 2% UNK 09/01/2020 12:00:00 AM EDT activ e Bactroban 2% eCW1 ([facility]) Bactroban 2% UNK 09/01/2020 12:00:00 AM EDT activ e Bactroban 2% eCW1 ([facility]) Bactroban 2% UNK 09/01/2020 12:00:00 AM EDT activ e Bactroban 2% eCW1 ([facility]) Bactroban 2% UNK 09/01/2020 12:00:00 AM EDT activ e Bactroban 2% eCW1 ([facility]) Bactroban 2% UNK 09/01/2020 12:00:00 AM EDT activ e Bactroban 2% eCW1 ([facility]) Bactroban 2% UNK 09/01/2020 12:00:00 AM EDT activ e Bactroban 2% eCW1 ([facility]) Hydromorphone Hydrochloride 2 MG Oral Tablet Hydromorp nellie HCl 2 MG Hydromorphone HCl 2 MG 09/01/2020 12:00:00 AM EDT 1.0 {tablet_as_need ed} active Hydromorphone HCl 2 MG eCW1 ([facility]) Hydromorphone Hydrochloride 2 MG Oral Tablet Hydromorp nellie HCl 2 MG Hydromorphone HCl 2 MG 09/01/2020 12:00:00 AM EDT 1.0 {tablet_as_need ed} active Hydromorphone HCl 2 MG eCW1 ([facility]) Bactroban 2% UNK 09/01/2020 12:00:00 AM EDT activ e Bactroban 2% eCW1 ([facility]) Bactroban 2% UNK 09/01/2020 12:00:00 AM EDT activ e Bactroban 2% eCW1 ([facility]) Hydromorphone Hydrochloride 2 MG Oral Tablet Hydromorp nellie HCl 2 MG Hydromorphone HCl 2 MG 09/01/2020 12:00:00 AM EDT 1.0 {tablet_as_need ed} active Hydromorphone HCl 2 MG eCW1 ([facility]) Hydromorphone Hydrochloride 2 MG Oral Tablet Hydromorp nellie HCl 2 MG Hydromorphone HCl 2 MG 09/01/2020 12:00:00 AM EDT 1.0 {tablet_as_need ed} active Hydromorphone HCl 2 MG eCW1 ([facility]) Bactroban 2% UNK 09/01/2020 12:00:00 AM EDT activ e Bactroban 2% eCW1 ([facility]) Bactroban 2% UNK 09/01/2020 12:00:00 AM EDT activ e Bactroban 2% eCW1 ([facility]) Bactroban 2% UNK 09/01/2020 12:00:00 AM EDT activ e Bactroban 2% eCW1 ([facility]) Bactroban 2% UNK 09/01/2020 12:00:00 AM EDT activ e Bactroban 2% eCW1 ([facility]) Bactroban 2% UNK 09/01/2020 12:00:00 AM EDT activ e Bactroban 2% eCW1 ([facility]) Bactroban 2% UNK 09/01/2020 12:00:00 AM EDT activ e Bactroban 2% eCW1 ([facility]) Bactroban 2% UNK 09/01/2020 12:00:00 AM EDT activ e Bactroban 2% eCW1 ([facility]) 100,000 unit/gram 08/30/2020 12:00:00 AM EDT cream 30 APPLY TO AFFECTED AREA(S) TWO TIMES A DAY FOR 15 DAYS APPLY TO AFFECTED AREA(S) TWO TIMES A DA Y FOR 15 DAYS SOLD: 08/30/2020 [facility] Hydromorphone Hydrochloride 2 MG Oral Tablet Hydromorp nellie HCl 2 MG Hydromorphone HCl 2 MG 08/25/2020 12:00:00 AM EDT 1.0 {tablet_as_need ed} active Hydromorphone HCl 2 MG eCW1 ([facility]) Hydromorphone Hydrochloride 2 MG Oral Tablet Hydromorp nellie HCl 2 MG Hydromorphone HCl 2 MG 08/25/2020 12:00:00 AM EDT 1.0 {tablet_as_need ed} active Hydromorphone HCl 2 MG eCW1 ([facility]) 2 mg 08/25/2020 12:00:00 AM EDT tablet 28 TAKE ONE TABLET BY MOUTH EVERY 6 HOURS NEEDED MAXIMUM DAILY DOSE = 4 TABLETS TAKE ONE TABLET BY MOUTH EVERY 6 HOURS NEEDED MAXIMUM DAILY DOSE = 4 TABLETS SOLD: 08/25/2020 [facility] Albuterol 0.833 MG/ML / Ipratropium Brom karley 0.167 MG/ML Inhalation Solution 0.5 mg-3 mg(2.5 mg base)/3 mL IPRATROPIUM/ALBUTEROL SULFATE 08/22/2020 12:00:00 AM EDT solution for nebulization 360 INHALE THE CONTENTS OF ONE VIAL VIA NEBULIZER EVERY 6 HOURS NEEDED INHALE THE CONTENTS OF ONE VIAL VIA NEBU LIZER EVERY 6 HOURS NEEDED SOLD: 09/19/2020 [facility] . UNIT 08/22/2020 12:00:00 AM EDT Aerosol 1 USE A S DIRECTED EVERY 4 HOURS USE DIRECTED EVERY 4 HOURS SOLD: 08/22/2020 [facility] Albuterol 0.833 MG/ML / Ipratropium Brom karley 0.167 MG/ML Inhalation Solution 0.5 mg-3 mg(2.5 mg base)/3 mL IPRATROPIUM/ALBUTEROL SULFATE 08/22/2020 12:00:00 AM EDT solution for nebulization 360 INHALE THE CONTENTS OF ONE VIAL VIA NEBULIZER EVERY 6 HOURS NEEDED INHALE THE CONTENTS OF ONE VIAL VIA NEBU LIZER EVERY 6 HOURS NEEDED SOLD: 10/17/2020 [facility] . UNIT 08/22/2020 12:00:00 AM EDT Aerosol 1 USE A S DIRECTED EVERY 4 HOURS USE DIRECTED EVERY 4 HOURS SOLD: 09/19/2020 [facility] Albuterol 0.833 MG/ML / Ipratropium Brom karley 0.167 MG/ML Inhalation Solution 0.5 mg-3 mg(2.5 mg base)/3 mL IPRATROPIUM/ALBUTEROL SULFATE 08/22/2020 12:00:00 AM EDT solution for nebulization 360 INHALE THE CONTENTS OF ONE VIAL VIA NEBULIZER EVERY 6 HOURS NEEDED INHALE THE CONTENTS OF ONE VIAL VIA NEBU LIZER EVERY 6 HOURS NEEDED SOLD: 12/13/2020 [facility] Albuterol 0.833 MG/ML / Ipratropium Brom karley 0.167 MG/ML Inhalation Solution 0.5 mg-3 mg(2.5 mg base)/3 mL IPRATROPIUM/ALBUTEROL SULFATE 08/22/2020 12:00:00 AM EDT solution for nebulization 360 INHALE THE CONTENTS OF ONE VIAL VIA NEBULIZER EVERY 6 HOURS NEEDED INHALE THE CONTENTS OF ONE VIAL VIA NEBU LIZER EVERY 6 HOURS NEEDED SOLD: 11/14/2020 [facility] . UNIT 08/22/2020 12:00:00 AM EDT Aerosol 1 USE A S DIRECTED EVERY 4 HOURS USE DIRECTED EVERY 4 HOURS SOLD: 10/17/2020 [facility] Albuterol 0.833 MG/ML / Ipratropium Brom karley 0.167 MG/ML Inhalation Solution 0.5 mg-3 mg(2.5 mg base)/3 mL IPRATROPIUM/ALBUTEROL SULFATE 08/22/2020 12:00:00 AM EDT solution for nebulization 360 INHALE THE CONTENTS OF ONE VIAL VIA NEBULIZER EVERY 6 HOURS NEEDED INHALE THE CONTENTS OF ONE VIAL VIA NEBU LIZER EVERY 6 HOURS NEEDED SOLD: 08/22/2020 [facility] Albuterol 0.833 MG/ML / Ipratropium Brom karley 0.167 MG/ML Inhalation Solution 0.5 mg-3 mg(2.5 mg base)/3 mL IPRATROPIUM/ALBUTEROL SULFATE 08/22/2020 12:00:00 AM EDT solution for nebulization 360 INHALE THE CONTENTS OF ONE VIAL VIA NEBULIZER EVERY 6 HOURS NEEDED INHALE THE CONTENTS OF ONE VIAL VIA NEBU LIZER EVERY 6 HOURS NEEDED SOLD: 01/10/2021 [facility] . UNIT 08/22/2020 12:00:00 AM EDT Aerosol 1 USE A S DIRECTED EVERY 4 HOURS USE DIRECTED EVERY 4 HOURS SOLD: 11/14/2020 [facility] 2 mg 08/16/2020 12:00:00 AM EDT tablet 28 TAKE 1 TABLET BY MOUTH EVERY 6 HOURS NEEDED FOR 7 DAYS MAX DAILY DOSE = 4 TABLETS TAKE 1 TABLET BY MOUTH EVERY 6 HOURS NEEDED FOR 7 DAYS MAX DAILY DOSE = 4 TABLETS SOLD: 08/16/2020 [facility] 4 mg/2 mL 08/16/2020 12:00:00 AM EDT solution 120 INJECT 1 VIAL [4MG] TWO TIMES A DAY AT LEAST 8 HOURS APART DIRECTED INJECT 1 VIAL [4MG] TWO TIMES A DAY AT LEAST 8 HOURS APART DIRECTED SOLD: 09/19/2020 [facility] 4 mg/2 mL 08/16/2020 12:00:00 AM EDT solution 120 INJECT 1 VIAL [4MG] TWO TIMES A DAY AT LEAST 8 HOURS APART DIRECTED INJECT 1 VIAL [4MG] TWO TIMES A DAY AT LEAST 8 HOURS APART DIRECTED SOLD: 08/16/2020 [facility] Hydromorphone Hydrochloride 2 MG Oral Tablet Hydromorp nellie HCl 2 MG Hydromorphone HCl 2 MG 08/15/2020 12:00:00 AM EDT 1.0 {tablet_as_need ed} active Hydromorphone HCl 2 MG eCW1 ([facility]) Hydromorphone Hydrochloride 2 MG Oral Tablet Hydromorp nellie HCl 2 MG Hydromorphone HCl 2 MG 08/15/2020 12:00:00 AM EDT 1.0 {tablet_as_need ed} active Hydromorphone HCl 2 MG eCW1 ([facility]) Hydromorphone Hydrochloride 2 MG Oral Tablet Hydromorp nellie HCl 2 MG Hydromorphone HCl 2 MG 08/15/2020 12:00:00 AM EDT 1.0 {tablet_as_need ed} active Hydromorphone HCl 2 MG eCW1 ([facility]) Hydromorphone Hydrochloride 2 MG Oral Tablet Hydromorp nellie HCl 2 MG Hydromorphone HCl 2 MG 08/15/2020 12:00:00 AM EDT 1.0 {tablet_as_need ed} active Hydromorphone HCl 2 MG eCW1 ([facility]) Hydromorphone Hydrochloride 2 MG Oral Tablet Hydromorp nellie HCl 2 MG Hydromorphone HCl 2 MG 08/15/2020 12:00:00 AM EDT 1.0 {tablet_as_need ed} active Hydromorphone HCl 2 MG eCW1 ([facility]) Hydromorphone Hydrochloride 2 MG Oral Tablet Hydromorp nellie HCl 2 MG Hydromorphone HCl 2 MG 08/15/2020 12:00:00 AM EDT 1.0 {tablet_as_need ed} active Hydromorphone HCl 2 MG eCW1 ([facility]) 2 % 08/11/2020 12:00:00 AM EDT ointment 22 APPLY TO AFFECTED AREA(S) THREE TIMES A DAY FOR 14 DAYS APPLY TO AFFECTED AREA(S) THREE TIMES A DAY FOR 14 DAY S SOLD: 08/23/2020 [facility] 2 % 08/11/2020 12:00:00 AM EDT ointment 22 APPLY TO AFFECTED AREA(S) THREE TIMES A DAY FOR 14 DAYS APPLY TO AFFECTED AREA(S) THREE TIMES A DAY FOR 14 DAY S SOLD: 09/11/2020 [facility] 50 mcg/actuation 08/09/2020 12:00:00 AM EDT spray,non-aeroso l 17 SPRAY TWO SPRAYS IN EACH NOSTRIL EVERY DAY SPRAY TWO SPRAYS IN EACH NOSTRIL EVERY DAY SOLD: 09/06/2020 [facility] 50 mcg/actuation 08/09/2020 12:00:00 AM EDT spray,non-aeroso l 17 SPRAY TWO SPRAYS IN EACH NOSTRIL EVERY DAY SPRAY TWO SPRAYS IN EACH NOSTRIL EVERY DAY SOLD: 10/04/2020 [facility] 50 mcg/actuation 08/09/2020 12:00:00 AM EDT spray,non-aeroso l 17 SPRAY TWO SPRAYS IN EACH NOSTRIL EVERY DAY SPRAY TWO SPRAYS IN EACH NOSTRIL EVERY DAY SOLD: 08/09/2020 [facility] Hydromorphone Hydrochloride 2 MG Oral Tablet Hydromorp nellie HCl 2 MG Hydromorphone HCl 2 MG 08/04/2020 12:00:00 AM EDT 1.0 {tablet_as_need ed} active Hydromorphone HCl 2 MG eCW1 ([facility]) Hydromorphone Hydrochloride 2 MG Oral Tablet Hydromorp nellie HCl 2 MG Hydromorphone HCl 2 MG 08/04/2020 12:00:00 AM EDT 1.0 {tablet_as_need ed} active Hydromorphone HCl 2 MG eCW1 ([facility]) Hydromorphone Hydrochloride 2 MG Oral Tablet Hydromorp nellie HCl 2 MG Hydromorphone HCl 2 MG 08/04/2020 12:00:00 AM EDT 1.0 {tablet_as_need ed} active Hydromorphone HCl 2 MG eCW1 ([facility]) Hydromorphone Hydrochloride 2 MG Oral Tablet Hydromorp nellie HCl 2 MG Hydromorphone HCl 2 MG 08/04/2020 12:00:00 AM EDT 1.0 {tablet_as_need ed} active Hydromorphone HCl 2 MG eCW1 ([facility]) 2 mg 08/04/2020 12:00:00 AM EDT tablet 14 TAKE 1 TABLET BY MOUTH EVERY 12 HOURS NEEDED FOR 7 DAYS MAX DAILY DOSE = 2 TABLETS TAKE 1 TABLET BY MOUTH EVERY 12 HOURS NEEDED FOR 7 DAYS MAX DAILY DOSE = 2 TABLETS SOLD: 08/04/2020 [facility] ELECTROLYTES/DEXTROSE 08/04/2020 12:00:00 AM EDT solution 3 0000 DRINK 330ML BY MOUTH THREE TIMES A DAY DRINK 330ML BY MOUTH THREE TIMES A DAY SOLD: 08/04/2020 [facility] Hydromorphone Hydrochloride 2 MG Oral Tablet Hydromorp nellie HCl 2 MG Hydromorphone HCl 2 MG 08/04/2020 12:00:00 AM EDT 1.0 {tablet_as_need ed} active Hydromorphone HCl 2 MG eCW1 ([facility]) Hydromorphone Hydrochloride 2 MG Oral Tablet Hydromorp nellie HCl 2 MG Hydromorphone HCl 2 MG 08/04/2020 12:00:00 AM EDT 1.0 {tablet_as_need ed} active Hydromorphone HCl 2 MG eCW1 ([facility]) 100,000 unit/gram 08/04/2020 12:00:00 AM EDT cream 30 APPLY ONE TOPICALLY TWICE A DAY APPLY ONE TOPICALLY TWICE A DAY SOLD: 08/18/2020 [facility] Hydromorphone Hydrochloride 2 MG Oral Tablet Hydromorp nellie HCl 2 MG Hydromorphone HCl 2 MG 08/04/2020 12:00:00 AM EDT 1.0 {tablet_as_need ed} active Hydromorphone HCl 2 MG eCW1 ([facility]) ELECTROLYTES/DEXTROSE 08/04/2020 12:00:00 AM EDT solution 3 0000 DRINK 330ML BY MOUTH THREE TIMES A DAY DRINK 330ML BY MOUTH THREE TIMES A DAY SOLD: 09/07/2020 [facility] 100,000 unit/gram 08/04/2020 12:00:00 AM EDT cream 30 APPLY ONE TOPICALLY TWICE A DAY APPLY ONE TOPICALLY TWICE A DAY SOLD: 08/04/2020 [facility] Hydromorphone Hydrochloride 2 MG Oral Tablet Hydromorp nellie HCl 2 MG Hydromorphone HCl 2 MG 08/04/2020 12:00:00 AM EDT 1.0 {tablet_as_need ed} active Hydromorphone HCl 2 MG eCW1 ([facility]) Pedialyte - Pedialyte - 08/03/2020 12:00:00 AM EDT active Pedialyte - eCW1 ([facility]) Pedialyte - Pedialyte - 08/03/2020 12:00:00 AM EDT active Pedialyte - eCW1 ([facility]) Pedialyte - Pedialyte - 08/03/2020 12:00:00 AM EDT active Pedialyte - eCW1 ([facility]) Pedialyte - Pedialyte - 08/03/2020 12:00:00 AM EDT suspended Pedialyte - eCW1 ([facility]) Pedialyte - Pedialyte - 08/03/2020 12:00:00 AM EDT active Pedialyte - eCW1 ([facility]) Nystatin 239350 UNT/ML Topical Cream Nystatin 780797 U NIT/GM Nystatin 326373 UNIT/GM 08/03/2020 12:00:00 AM EDT 1.0 {application} active Nystatin 293147 UNIT/GM eCW1 ([facility]) Nystatin 529107 UNT/ML Topical Cream Nystatin 563684 U NIT/GM Nystatin 627218 UNIT/GM 08/03/2020 12:00:00 AM EDT 1.0 {application} active Nystatin [id number] UNIT/GM eCW1 ([facility]) Pedialyte - Pedialyte - 08/03/2020 12:00:00 AM EDT active Pedialyte - eCW1 ([facility]) Pedialyte - Pedialyte - 08/03/2020 12:00:00 AM EDT active Pedialyte - eCW1 ([facility]) Pedialyte - Pedialyte - 08/03/2020 12:00:00 AM EDT active Pedialyte - eCW1 ([facility]) Pedialyte - Pedialyte - 08/03/2020 12:00:00 AM EDT active Pedialyte - eCW1 ([facility]) Nystatin 046408 UNT/ML Topical Cream Nystatin 409359 U NIT/GM Nystatin 233503 UNIT/GM 08/03/2020 12:00:00 AM EDT 1.0 {application} active Nystatin 866781 UNIT/GM eCW1 ([facility]) Pedialyte - Pedialyte - 08/03/2020 12:00:00 AM EDT active Pedialyte - eCW1 ([facility]) Pedialyte - Pedialyte - 08/03/2020 12:00:00 AM EDT active Pedialyte - eCW1 ([facility]) Pedialyte - Pedialyte - 08/03/2020 12:00:00 AM EDT active Pedialyte - eCW1 ([facility]) Nystatin 559800 UNT/ML Topical Cream Nystatin 486412 U NIT/GM Nystatin 558099 UNIT/GM 08/03/2020 12:00:00 AM EDT 1.0 {application} active Nystatin 480871 UNIT/GM eCW1 ([facility]) Pedialyte - Pedialyte - 08/03/2020 12:00:00 AM EDT active Pedialyte - eCW1 ([facility]) Pedialyte - Pedialyte - 08/03/2020 12:00:00 AM EDT active Pedialyte - eCW1 ([facility]) Pedialyte - Pedialyte - 08/03/2020 12:00:00 AM EDT suspended Pedialyte - eCW1 ([facility]) Nystatin 707647 UNT/ML Topical Cream Nystatin 025722 U NIT/GM Nystatin 232651 UNIT/GM 08/03/2020 12:00:00 AM EDT 1.0 {application} active Nystatin 827596 UNIT/GM eCW1 ([facility]) Pedialyte - Pedialyte - 08/03/2020 12:00:00 AM EDT active Pedialyte - eCW1 ([facility]) Nystatin 096847 UNT/ML Topical Cream Nystatin 983470 U NIT/GM Nystatin 585103 UNIT/GM 08/03/2020 12:00:00 AM EDT 1.0 {application} active Nystatin 786554 UNIT/GM eCW1 ([facility]) Nystatin 025535 UNT/ML Topical Cream Nystatin 524492 U NIT/GM Nystatin 769658 UNIT/GM 08/03/2020 12:00:00 AM EDT 1.0 {application} active Nystatin 005178 UNIT/GM eCW1 ([facility]) Pedialyte - Pedialyte - 08/03/2020 12:00:00 AM EDT active Pedialyte - eCW1 ([facility]) Pedialyte - Pedialyte - 08/03/2020 12:00:00 AM EDT active Pedialyte - eCW1 ([facility]) Pedialyte - Pedialyte - 08/03/2020 12:00:00 AM EDT active Pedialyte - eCW1 ([facility]) Pedialyte - Pedialyte - 08/03/2020 12:00:00 AM EDT active Pedialyte - eCW1 ([facility]) Nystatin 430319 UNT/ML Topical Cream Nystatin 159893 U NIT/GM Nystatin 608961 UNIT/GM 08/03/2020 12:00:00 AM EDT 1.0 {application} active Nystatin 952324 UNIT/GM eCW1 ([facility]) Nystatin 357811 UNT/ML Topical Cream Nystatin 921470 U NIT/GM Nystatin 223006 UNIT/GM 08/03/2020 12:00:00 AM EDT 1.0 {application} active Nystatin 185254 UNIT/GM eCW1 ([facility]) Pedialyte - Pedialyte - 08/03/2020 12:00:00 AM EDT active Pedialyte - eCW1 ([facility]) Pedialyte - Pedialyte - 08/03/2020 12:00:00 AM EDT active Pedialyte - eCW1 ([facility]) Pedialyte - Pedialyte - 08/03/2020 12:00:00 AM EDT active Pedialyte - eCW1 ([facility]) Pedialyte - Pedialyte - 08/03/2020 12:00:00 AM EDT active [facility]te - [facility]1 [facility] [facility]) Pedialyte - Pedialyte - 08/03/2020 12:00:00 AM EDT active Pedialyte - eCW1 ([facility]) Pedialyte - Pedialyte - 08/03/2020 12:00:00 AM EDT active Pedialyte - eCW1 ([facility]) Pedialyte - Pedialyte - 08/03/2020 12:00:00 AM EDT active Pedialyte - eCW1 ([facility]) Pedialyte - Pedialyte - 08/03/2020 12:00:00 AM EDT active Pedialyte - eCW1 ([facility]) Pedialyte - Pedialyte - 08/03/2020 12:00:00 AM EDT suspended Pedialyte - eCW1 ([facility]) Pedialyte - Pedialyte - 08/03/2020 12:00:00 AM EDT active Pedialyte - eCW1 ([facility]) Pedialyte - Pedialyte - 08/03/2020 12:00:00 AM EDT active Pedialyte - eCW1 ([facility]) Pedialyte - Pedialyte - 08/03/2020 12:00:00 AM EDT active Pedialyte - eCW1 ([facility]) Pedialyte - Pedialyte - 08/03/2020 12:00:00 AM EDT suspended Pedialyte - eCW1 ([facility]) Pedialyte - Pedialyte - 08/03/2020 12:00:00 AM EDT active Pedialyte - eCW1 ([facility]) Pedialyte - Pedialyte - 08/03/2020 12:00:00 AM EDT active Pedialyte - eCW1 ([facility]) Pedialyte - Pedialyte - 08/03/2020 12:00:00 AM EDT active Pedialyte - eCW1 ([facility]) Pedialyte - Pedialyte - 08/03/2020 12:00:00 AM EDT active Pedialyte - eCW1 ([facility]) Pedialyte - Pedialyte - 08/03/2020 12:00:00 AM EDT active Pedialyte - eCW1 ([facility]) Pedialyte - Pedialyte - 08/03/2020 12:00:00 AM EDT active Pedialyte - eCW1 ([facility]) Pedialyte - Pedialyte - 08/03/2020 12:00:00 AM EDT active Pedialyte - eCW1 ([facility]) Pedialyte - Pedialyte - 08/03/2020 12:00:00 AM EDT suspended eCW1 ([facility]) Pedialyte - Pedialyte - 08/03/2020 12:00:00 AM EDT active Pedialyte - eCW1 ([facility]) Nystatin 709692 UNT/ML Topical Cream Nystatin 695128 U NIT/GM Nystatin 407060 UNIT/GM 08/03/2020 12:00:00 AM EDT 1.0 {application} active Nystatin 283177 UNIT/GM eCW1 ([facility]) Pedialyte - Pedialyte - 08/03/2020 12:00:00 AM EDT suspended Pedialyte - eCW1 ([facility]) Pedialyte - Pedialyte - 08/03/2020 12:00:00 AM EDT active Pedialyte - eCW1 ([facility]) Pedialyte - Pedialyte - 08/03/2020 12:00:00 AM EDT active Pedialyte - eCW1 ([facility]) Pedialyte - Pedialyte - 08/03/2020 12:00:00 AM EDT active Pedialyte - eCW1 ([facility]) Nystatin 891816 UNT/ML Topical Cream Nystatin 105242 U NIT/GM Nystatin 577788 UNIT/GM 08/03/2020 12:00:00 AM EDT 1.0 {application} active Nystatin 179898 UNIT/GM eCW1 ([facility]) Pedialyte - Pedialyte - 08/03/2020 12:00:00 AM EDT active Pedialyte - eCW1 ([facility]) Pedialyte - Pedialyte - 08/03/2020 12:00:00 AM EDT active Pedialyte - eCW1 ([facility]) Pedialyte - Pedialyte - 08/03/2020 12:00:00 AM EDT suspended Pedialyte - eCW1 ([facility]) Pedialyte - Pedialyte - 08/03/2020 12:00:00 AM EDT active Pedialyte - eCW1 ([facility]) Pedialyte - Pedialyte - 08/03/2020 12:00:00 AM EDT active Pedialyte - eCW1 ([facility]) Pedialyte - Pedialyte - 08/03/2020 12:00:00 AM EDT active Pedialyte - eCW1 ([facility]) Pedialyte - Pedialyte - 08/03/2020 12:00:00 AM EDT active eCW1 ([facility]) Pedialyte - Pedialyte - 08/03/2020 12:00:00 AM EDT active Pedialyte - eCW1 ([facility]) Nystatin 258523 UNT/ML Topical Cream Nystatin 111784 U NIT/GM Nystatin 945723 UNIT/GM 08/03/2020 12:00:00 AM EDT 1.0 {application} active Nystatin 555160 UNIT/GM eCW1 ([facility]) Pedialyte - Pedialyte - 08/03/2020 12:00:00 AM EDT active Pedialyte - eCW1 ([facility]) Pedialyte - Pedialyte - 08/03/2020 12:00:00 AM EDT active Pedialyte - eCW1 ([facility]) Pedialyte - Pedialyte - 08/03/2020 12:00:00 AM EDT suspended Pedialyte - eCW1 ([facility]) Pedialyte - Pedialyte - 08/03/2020 12:00:00 AM EDT suspended Pedialyte - eCW1 ([facility]) Pedialyte - Pedialyte - 08/03/2020 12:00:00 AM EDT active Pedialyte - eCW1 ([facility]) Pedialyte - Pedialyte - 08/03/2020 12:00:00 AM EDT active Pedialyte - eCW1 ([facility]) Pedialyte - Pedialyte - 08/03/2020 12:00:00 AM EDT suspended Pedialyte - eCW1 ([facility]) Pedialyte - Pedialyte - 08/03/2020 12:00:00 AM EDT suspended Pedialyte - eCW1 ([facility]) Pedialyte - Pedialyte - 08/03/2020 12:00:00 AM EDT suspended Pedialyte - eCW1 ([facility]) Pedialyte - Pedialyte - 08/03/2020 12:00:00 AM EDT active Pedialyte - eCW1 ([facility]) Pedialyte - Pedialyte - 08/03/2020 12:00:00 AM EDT suspended Pedialyte - eCW1 ([facility]) Pedialyte - Pedialyte - 08/03/2020 12:00:00 AM EDT active Pedialyte - eCW1 ([facility]) Pedialyte - Pedialyte - 08/03/2020 12:00:00 AM EDT active Pedialyte - eCW1 ([facility]) Pedialyte - Pedialyte - 08/03/2020 12:00:00 AM EDT suspended Pedialyte - eCW1 ([facility]) Nystatin 421783 UNT/ML Topical Cream Nystatin 157882 U NIT/GM Nystatin 209934 UNIT/GM 08/03/2020 12:00:00 AM EDT 1.0 {application} active Nystatin 332420 UNIT/GM eCW1 ([facility]) Pedialyte - Pedialyte - 08/03/2020 12:00:00 AM EDT active Pedialyte - eCW1 ([facility]) Pedialyte - Pedialyte - 08/03/2020 12:00:00 AM EDT active Pedialyte - eCW1 ([facility]) Pedialyte - Pedialyte - 08/03/2020 12:00:00 AM EDT suspended Pedialyte - eCW1 ([facility]) Pedialyte - Pedialyte - 08/03/2020 12:00:00 AM EDT active Pedialyte - eCW1 ([facility]) Pedialyte - Pedialyte - 08/03/2020 12:00:00 AM EDT suspended eCW1 ([facility]) Pedialyte - Pedialyte - 08/03/2020 12:00:00 AM EDT active Pedialyte - eCW1 ([facility]) Pedialyte - Pedialyte - 08/03/2020 12:00:00 AM EDT active Pedialyte - eCW1 ([facility]) Pedialyte - Pedialyte - 08/03/2020 12:00:00 AM EDT active Pedialyte - eCW1 ([facility]) Pedialyte - Pedialyte - 08/03/2020 12:00:00 AM EDT active Pedialyte - eCW1 ([facility]) Nystatin 633701 UNT/ML Topical Cream Nystatin 156779 U NIT/GM Nystatin 210803 UNIT/GM 08/03/2020 12:00:00 AM EDT 1.0 {application} active Nystatin 055263 UNIT/GM eCW1 ([facility]) Pedialyte - Pedialyte - 08/03/2020 12:00:00 AM EDT suspended Pedialyte - eCW1 ([facility]) Pedialyte - Pedialyte - 08/03/2020 12:00:00 AM EDT active Pedialyte - eCW1 ([facility]) Pedialyte - Pedialyte - 08/03/2020 12:00:00 AM EDT active Pedialyte - eCW1 ([facility]) Nystatin 971466 UNT/ML Topical Cream Nystatin 011544 U NIT/GM Nystatin 994201 UNIT/GM 08/03/2020 12:00:00 AM EDT 1.0 {application} active Nystatin 334004 UNIT/GM eCW1 ([facility]) Pedialyte - Pedialyte - 08/03/2020 12:00:00 AM EDT active Pedialyte - eCW1 ([facility]) 90 mcg/actuation 08/01/2020 12:00:00 AM EDT HFA aerosol inha ler 18 INHALE TWO PUFFS BY MOUTH EVERY 4 HOURS NEEDED INHALE TWO PUFFS BY MOUTH EVERY 4 HOURS NEEDED SOLD: 09/25/2020 [facility] 90 mcg/actuation 08/01/2020 12:00:00 AM EDT HFA aerosol inha ler 18 INHALE TWO PUFFS BY MOUTH EVERY 4 HOURS NEEDED INHALE TWO PUFFS BY MOUTH EVERY 4 HOURS NEEDED SOLD: 08/01/2020 [facility] 90 mcg/actuation 08/01/2020 12:00:00 AM EDT HFA aerosol inha ler 18 INHALE TWO PUFFS BY MOUTH EVERY 4 HOURS NEEDED INHALE TWO PUFFS BY MOUTH EVERY 4 HOURS NEEDED SOLD: 08/28/2020 [facility] Petrolatum 0.41 MG/MG Topical Ointment [Aquaphor] Aquaphor - Aquaphor - 07/28/2020 12:00:00 AM EDT active Aquaphor - eCW1 ([facility]) Petrolatum 0.41 MG/MG Topical Ointment [Aquaphor] Aquaphor - Aquaphor - 07/28/2020 12:00:00 AM EDT active Aquaphor - eCW1 ([facility]) Petrolatum 0.41 MG/MG Topical Ointment [Aquaphor] Aquaphor - Aquaphor - 07/28/2020 12:00:00 AM EDT active Aquaphor - eCW1 ([facility]) Petrolatum 0.41 MG/MG Topical Ointment [Aquaphor] Aquaphor - Aquaphor - 07/28/2020 12:00:00 AM EDT active Aquaphor - eCW1 ([facility]) Petrolatum 0.41 MG/MG Topical Ointment [Aquaphor] Aquaphor - Aquaphor - 07/28/2020 12:00:00 AM EDT active Aquaphor - eCW1 ([facility]) Petrolatum 0.41 MG/MG Topical Ointment [Aquaphor] Aquaphor - Aquaphor - 07/28/2020 12:00:00 AM EDT active Aquaphor - eCW1 ([facility]) 41 % 07/28/2020 12:00:00 AM EDT ointment 396 APPLY TO THE PERINEAL AREA FOUR TIMES A DAY NEEDED EXTERNALLY FOR 14 DAYS APPLY TO THE PERINEAL AREA FOUR TIMES A DAY NEEDED EXTERNALLY FOR 14 DAYS SOLD: 07/28/2020 [facility] Petrolatum 0.41 MG/MG Topical Ointment [Aquaphor] Aquaphor - Aquaphor - 07/28/2020 12:00:00 AM EDT active Aquaphor - eCW1 ([facility]) Petrolatum 0.41 MG/MG Topical Ointment [Aquaphor] Aquaphor - Aquaphor - 07/28/2020 12:00:00 AM EDT active Aquaphor - eCW1 ([facility]) Petrolatum 0.41 MG/MG Topical Ointment [Aquaphor] Aquaphor - Aquaphor - 07/28/2020 12:00:00 AM EDT active Aquaphor - eCW1 ([facility]) Petrolatum 0.41 MG/MG Topical Ointment [Aquaphor] Aquaphor - Aquaphor - 07/28/2020 12:00:00 AM EDT active Aquaphor - eCW1 ([facility]) Petrolatum 0.41 MG/MG Topical Ointment [Aquaphor] Aquaphor - Aquaphor - 07/28/2020 12:00:00 AM EDT active Aquaphor - eCW1 ([facility]) Petrolatum 0.41 MG/MG Topical Ointment [Aquaphor] Aquaphor - Aquaphor - 07/28/2020 12:00:00 AM EDT active Aquaphor - eCW1 ([facility]) Petrolatum 0.41 MG/MG Topical Ointment [Aquaphor] Aquaphor - Aquaphor - 07/28/2020 12:00:00 AM EDT active Aquaphor - eCW1 ([facility]) Petrolatum 0.41 MG/MG Topical Ointment [Aquaphor] Aquaphor - Aquaphor - 07/28/2020 12:00:00 AM EDT active Aquaphor - eCW1 ([facility]) Petrolatum 0.41 MG/MG Topical Ointment [Aquaphor] Aquaphor - Aquaphor - 07/28/2020 12:00:00 AM EDT active Aquaphor - eCW1 ([facility]) Petrolatum 0.41 MG/MG Topical Ointment [Aquaphor] Aquaphor - Aquaphor - 07/28/2020 12:00:00 AM EDT active Aquaphor - eCW1 ([facility]) Petrolatum 0.41 MG/MG Topical Ointment [Aquaphor] Aquaphor - Aquaphor - 07/28/2020 12:00:00 AM EDT active Aquaphor - eCW1 ([facility]) Petrolatum 0.41 MG/MG Topical Ointment [Aquaphor] Aquaphor - Aquaphor - 07/28/2020 12:00:00 AM EDT active Aquaphor - eCW1 ([facility]) Petrolatum 0.41 MG/MG Topical Ointment [Aquaphor] Aquaphor - Aquaphor - 07/28/2020 12:00:00 AM EDT active Aquaphor - eCW1 ([facility]) Petrolatum 0.41 MG/MG Topical Ointment [Aquaphor] Aquaphor - Aquaphor - 07/28/2020 12:00:00 AM EDT active Aquaphor - eCW1 ([facility]) Petrolatum 0.41 MG/MG Topical Ointment [Aquaphor] Aquaphor - Aquaphor - 07/28/2020 12:00:00 AM EDT active Aquaphor - eCW1 ([facility]) Petrolatum 0.41 MG/MG Topical Ointment [Aquaphor] Aquaphor - Aquaphor - 07/28/2020 12:00:00 AM EDT active Aquaphor - eCW1 ([facility]) Petrolatum 0.41 MG/MG Topical Ointment [Aquaphor] Aquaphor - Aquaphor - 07/28/2020 12:00:00 AM EDT active Aquaphor - eCW1 ([facility]) Petrolatum 0.41 MG/MG Topical Ointment [Aquaphor] Aquaphor - Aquaphor - 07/28/2020 12:00:00 AM EDT active Aquaphor - eCW1 ([facility]) Petrolatum 0.41 MG/MG Topical Ointment [Aquaphor] Aquaphor - Aquaphor - 07/28/2020 12:00:00 AM EDT active Aquaphor - eCW1 ([facility]) Petrolatum 0.41 MG/MG Topical Ointment [Aquaphor] Aquaphor - Aquaphor - 07/28/2020 12:00:00 AM EDT active Aquaphor - eCW1 ([facility]) Petrolatum 0.41 MG/MG Topical Ointment [Aquaphor] Aquaphor - Aquaphor - 07/28/2020 12:00:00 AM EDT active Aquaphor - eCW1 ([facility]) Petrolatum 0.41 MG/MG Topical Ointment [Aquaphor] Aquaphor - Aquaphor - 07/28/2020 12:00:00 AM EDT active Aquaphor - eCW1 ([facility]) Petrolatum 0.41 MG/MG Topical Ointment [Aquaphor] Aquaphor - Aquaphor - 07/28/2020 12:00:00 AM EDT active Aquaphor - eCW1 ([facility]) Petrolatum 0.41 MG/MG Topical Ointment [Aquaphor] Aquaphor - Aquaphor - 07/28/2020 12:00:00 AM EDT active Aquaphor - eCW1 ([facility]) Petrolatum 0.41 MG/MG Topical Ointment [Aquaphor] Aquaphor - Aquaphor - 07/28/2020 12:00:00 AM EDT active Aquaphor - eCW1 ([facility]) Petrolatum 0.41 MG/MG Topical Ointment [Aquaphor] Aquaphor - Aquaphor - 07/28/2020 12:00:00 AM EDT active Aquaphor - eCW1 ([facility]) Petrolatum 0.41 MG/MG Topical Ointment [Aquaphor] Aquaphor - Aquaphor - 07/28/2020 12:00:00 AM EDT active Aquaphor - eCW1 ([facility]) Petrolatum 0.41 MG/MG Topical Ointment [Aquaphor] Aquaphor - Aquaphor - 07/28/2020 12:00:00 AM EDT active Aquaphor - eCW1 ([facility]) 0.6 mg/0.1 mL (18 mg/3 mL) 07/28/2020 12:00:00 AM EDT pen in jector 9 INJECT 1.8MG UNDER THE SKIN DAILY INJECT 1.8MG UNDER THE SKIN DAILY SOLD: 09/22/2020 [facility] Petrolatum 0.41 MG/MG Topical Ointment [Aquaphor] Aquaphor - Aquaphor - 07/28/2020 12:00:00 AM EDT active Aquaphor - eCW1 ([facility]) Petrolatum 0.41 MG/MG Topical Ointment [Aquaphor] Aquaphor - Aquaphor - 07/28/2020 12:00:00 AM EDT active Aquaphor - eCW1 ([facility]) Petrolatum 0.41 MG/MG Topical Ointment [Aquaphor] Aquaphor - Aquaphor - 07/28/2020 12:00:00 AM EDT active Aquaphor - eCW1 ([facility]) Petrolatum 0.41 MG/MG Topical Ointment [Aquaphor] Aquaphor - Aquaphor - 07/28/2020 12:00:00 AM EDT active Aquaphor - eCW1 ([facility]) Petrolatum 0.41 MG/MG Topical Ointment [Aquaphor] Aquaphor - Aquaphor - 07/28/2020 12:00:00 AM EDT active Aquaphor - eCW1 ([facility]) Petrolatum 0.41 MG/MG Topical Ointment [Aquaphor] Aquaphor - Aquaphor - 07/28/2020 12:00:00 AM EDT active Aquaphor - eCW1 ([facility]) Petrolatum 0.41 MG/MG Topical Ointment [Aquaphor] Aquaphor - Aquaphor - 07/28/2020 12:00:00 AM EDT active Aquaphor - eCW1 ([facility]) Petrolatum 0.41 MG/MG Topical Ointment [Aquaphor] Aquaphor - Aquaphor - 07/28/2020 12:00:00 AM EDT active Aquaphor - eCW1 ([facility]) Petrolatum 0.41 MG/MG Topical Ointment [Aquaphor] Aquaphor - Aquaphor - 07/28/2020 12:00:00 AM EDT active Aquaphor - eCW1 ([facility]) Petrolatum 0.41 MG/MG Topical Ointment [Aquaphor] Aquaphor - Aquaphor - 07/28/2020 12:00:00 AM EDT active Aquaphor - eCW1 ([facility]) Petrolatum 0.41 MG/MG Topical Ointment [Aquaphor] Aquaphor - Aquaphor - 07/28/2020 12:00:00 AM EDT active Aquaphor - eCW1 ([facility]) Petrolatum 0.41 MG/MG Topical Ointment [Aquaphor] Aquaphor - Aquaphor - 07/28/2020 12:00:00 AM EDT active Aquaphor - eCW1 ([facility]) Petrolatum 0.41 MG/MG Topical Ointment [Aquaphor] Aquaphor - Aquaphor - 07/28/2020 12:00:00 AM EDT active Aquaphor - eCW1 ([facility]) Petrolatum 0.41 MG/MG Topical Ointment [Aquaphor] Aquaphor - Aquaphor - 07/28/2020 12:00:00 AM EDT active Aquaphor - eCW1 ([facility]) Petrolatum 0.41 MG/MG Topical Ointment [Aquaphor] Aquaphor - Aquaphor - 07/28/2020 12:00:00 AM EDT active Aquaphor - eCW1 ([facility]) Petrolatum 0.41 MG/MG Topical Ointment [Aquaphor] Aquaphor - Aquaphor - 07/28/2020 12:00:00 AM EDT active Aquaphor - eCW1 ([facility]) Petrolatum 0.41 MG/MG Topical Ointment [Aquaphor] Aquaphor - Aquaphor - 07/28/2020 12:00:00 AM EDT active Aquaphor - eCW1 ([facility]) Petrolatum 0.41 MG/MG Topical Ointment [Aquaphor] Aquaphor - Aquaphor - 07/28/2020 12:00:00 AM EDT active Aquaphor - eCW1 ([facility]) Petrolatum 0.41 MG/MG Topical Ointment [Aquaphor] Aquaphor - Aquaphor - 07/28/2020 12:00:00 AM EDT active Aquaphor - eCW1 ([facility]) Petrolatum 0.41 MG/MG Topical Ointment [Aquaphor] Aquaphor - Aquaphor - 07/28/2020 12:00:00 AM EDT active Aquaphor - eCW1 ([facility]) Petrolatum 0.41 MG/MG Topical Ointment [Aquaphor] Aquaphor - Aquaphor - 07/28/2020 12:00:00 AM EDT active Aquaphor - eCW1 ([facility]) Petrolatum 0.41 MG/MG Topical Ointment [Aquaphor] Aquaphor - Aquaphor - 07/28/2020 12:00:00 AM EDT active Aquaphor - eCW1 ([facility]) Petrolatum 0.41 MG/MG Topical Ointment [Aquaphor] Aquaphor - Aquaphor - 07/28/2020 12:00:00 AM EDT active Aquaphor - eCW1 ([facility]) Petrolatum 0.41 MG/MG Topical Ointment [Aquaphor] Aquaphor - Aquaphor - 07/28/2020 12:00:00 AM EDT active Aquaphor - eCW1 ([facility]) Petrolatum 0.41 MG/MG Topical Ointment [Aquaphor] Aquaphor - Aquaphor - 07/28/2020 12:00:00 AM EDT active Aquaphor - eCW1 ([facility]) 0.6 mg/0.1 mL (18 mg/3 mL) 07/28/2020 12:00:00 AM EDT pen in jector 9 INJECT 1.8MG UNDER THE SKIN DAILY INJECT 1.8MG UNDER THE SKIN DAILY SOLD: 08/25/2020 [facility] Petrolatum 0.41 MG/MG Topical Ointment [Aquaphor] Aquaphor - Aquaphor - 07/28/2020 12:00:00 AM EDT active Aquaphor - eCW1 ([facility]) Petrolatum 0.41 MG/MG Topical Ointment [Aquaphor] Aquaphor - Aquaphor - 07/28/2020 12:00:00 AM EDT active Aquaphor - eCW1 ([facility]) Petrolatum 0.41 MG/MG Topical Ointment [Aquaphor] Aquaphor - Aquaphor - 07/28/2020 12:00:00 AM EDT active Aquaphor - eCW1 ([facility]) Petrolatum 0.41 MG/MG Topical Ointment [Aquaphor] Aquaphor - Aquaphor - 07/28/2020 12:00:00 AM EDT active Aquaphor - eCW1 ([facility]) Petrolatum 0.41 MG/MG Topical Ointment [Aquaphor] Aquaphor - Aquaphor - 07/28/2020 12:00:00 AM EDT active Aquaphor - eCW1 ([facility]) Petrolatum 0.41 MG/MG Topical Ointment [Aquaphor] Aquaphor - Aquaphor - 07/28/2020 12:00:00 AM EDT active Aquaphor - eCW1 ([facility]) Petrolatum 0.41 MG/MG Topical Ointment [Aquaphor] Aquaphor - Aquaphor - 07/28/2020 12:00:00 AM EDT active Aquaphor - eCW1 ([facility]) Petrolatum 0.41 MG/MG Topical Ointment [Aquaphor] Aquaphor - Aquaphor - 07/28/2020 12:00:00 AM EDT active eCW1 ([facility]) Petrolatum 0.41 MG/MG Topical Ointment [Aquaphor] Aquaphor - Aquaphor - 07/28/2020 12:00:00 AM EDT active Aquaphor - eCW1 ([facility]) Petrolatum 0.41 MG/MG Topical Ointment [Aquaphor] Aquaphor - Aquaphor - 07/28/2020 12:00:00 AM EDT active Aquaphor - eCW1 ([facility]) Petrolatum 0.41 MG/MG Topical Ointment [Aquaphor] Aquaphor - Aquaphor - 07/28/2020 12:00:00 AM EDT active Aquaphor - eCW1 ([facility]) Petrolatum 0.41 MG/MG Topical Ointment [Aquaphor] Aquaphor - Aquaphor - 07/28/2020 12:00:00 AM EDT active Aquaphor - eCW1 ([facility]) Petrolatum 0.41 MG/MG Topical Ointment [Aquaphor] Aquaphor - Aquaphor - 07/28/2020 12:00:00 AM EDT active Aquaphor - eCW1 ([facility]) Petrolatum 0.41 MG/MG Topical Ointment [Aquaphor] Aquaphor - Aquaphor - 07/28/2020 12:00:00 AM EDT active Aquaphor - eCW1 ([facility]) Petrolatum 0.41 MG/MG Topical Ointment [Aquaphor] Aquaphor - Aquaphor - 07/28/2020 12:00:00 AM EDT active Aquaphor - eCW1 ([facility]) Petrolatum 0.41 MG/MG Topical Ointment [Aquaphor] Aquaphor - Aquaphor - 07/28/2020 12:00:00 AM EDT active Aquaphor - eCW1 ([facility]) Petrolatum 0.41 MG/MG Topical Ointment [Aquaphor] Aquaphor - Aquaphor - 07/28/2020 12:00:00 AM EDT active Aquaphor - eCW1 ([facility]) Petrolatum 0.41 MG/MG Topical Ointment [Aquaphor] Aquaphor - Aquaphor - 07/28/2020 12:00:00 AM EDT active Aquaphor - eCW1 ([facility]) Petrolatum 0.41 MG/MG Topical Ointment [Aquaphor] Aquaphor - Aquaphor - 07/28/2020 12:00:00 AM EDT active Aquaphor - eCW1 ([facility]) Petrolatum 0.41 MG/MG Topical Ointment [Aquaphor] Aquaphor - Aquaphor - 07/28/2020 12:00:00 AM EDT active Aquaphor - eCW1 ([facility]) Petrolatum 0.41 MG/MG Topical Ointment [Aquaphor] Aquaphor - Aquaphor - 07/28/2020 12:00:00 AM EDT active Aquaphor - eCW1 ([facility]) Petrolatum 0.41 MG/MG Topical Ointment [Aquaphor] Aquaphor - Aquaphor - 07/28/2020 12:00:00 AM EDT active Aquaphor - eCW1 ([facility]) Petrolatum 0.41 MG/MG Topical Ointment [Aquaphor] Aquaphor - Aquaphor - 07/28/2020 12:00:00 AM EDT active Aquaphor - eCW1 ([facility]) 0.6 mg/0.1 mL (18 mg/3 mL) 07/28/2020 12:00:00 AM EDT pen in jector 9 INJECT 1.8MG UNDER THE SKIN DAILY INJECT 1.8MG UNDER THE SKIN DAILY SOLD: 07/28/2020 [facility] Petrolatum 0.41 MG/MG Topical Ointment [Aquaphor] Aquaphor - Aquaphor - 07/28/2020 12:00:00 AM EDT active eCW1 ([facility]) Petrolatum 0.41 MG/MG Topical Ointment [Aquaphor] Aquaphor - Aquaphor - 07/28/2020 12:00:00 AM EDT active Aquaphor - eCW1 ([facility]) Petrolatum 0.41 MG/MG Topical Ointment [Aquaphor] Aquaphor - Aquaphor - 07/28/2020 12:00:00 AM EDT active Aquaphor - eCW1 ([facility]) Petrolatum 0.41 MG/MG Topical Ointment [Aquaphor] Aquaphor - Aquaphor - 07/28/2020 12:00:00 AM EDT active Aquaphor - eCW1 ([facility]) Petrolatum 0.41 MG/MG Topical Ointment [Aquaphor] Aquaphor - Aquaphor - 07/28/2020 12:00:00 AM EDT active eCW1 ([facility]) Petrolatum 0.41 MG/MG Topical Ointment [Aquaphor] Aquaphor - Aquaphor - 07/28/2020 12:00:00 AM EDT active Aquaphor - eCW1 ([facility]) Petrolatum 0.41 MG/MG Topical Ointment [Aquaphor] Aquaphor - Aquaphor - 07/28/2020 12:00:00 AM EDT active Aquaphor - eCW1 ([facility]) 31 gauge x 5/16" 07/20/2020 12:00:00 AM EDT needle 30 USE 1 NEEDLE UNDER THE SKIN ONCE A DAY USE 1 NEEDLE UNDER THE SKIN ONCE A DAY SOLD: 08/18/2020 [facility] 1 gram 07/20/2020 12:00:00 AM EDT tablet 60 TAKE ONE TABLET BY MOUTH TWICE A DAY WITH MEALS TAKE ONE TABLET BY MOUTH TWICE A DAY WITH MEALS SOLD: 09/15/2020 [facility] 1 gram 07/20/2020 12:00:00 AM EDT tablet 60 TAKE ONE TABLET BY MOUTH TWICE A DAY WITH MEALS TAKE ONE TABLET BY MOUTH TWICE A DAY WITH MEALS SOLD: 10/13/2020 [facility] 1 gram 07/20/2020 12:00:00 AM EDT tablet 60 TAKE ONE TABLET BY MOUTH TWICE A DAY WITH MEALS TAKE ONE TABLET BY MOUTH TWICE A DAY WITH MEALS SOLD: 08/18/2020 [facility] 31 gauge x 5/16" 07/20/2020 12:00:00 AM EDT needle 30 USE 1 NEEDLE UNDER THE SKIN ONCE A DAY USE 1 NEEDLE UNDER THE SKIN ONCE A DAY SOLD: 07/21/2020 [facility] 1 gram 07/20/2020 12:00:00 AM EDT tablet 60 TAKE ONE TABLET BY MOUTH TWICE A DAY WITH MEALS TAKE ONE TABLET BY MOUTH TWICE A DAY WITH MEALS SOLD: 07/21/2020 [facility] 31 gauge x 5/16" 07/20/2020 12:00:00 AM EDT needle 30 USE 1 NEEDLE UNDER THE SKIN ONCE A DAY USE 1 NEEDLE UNDER THE SKIN ONCE A DAY SOLD: 09/14/2020 [facility] 31 gauge x 5/16" 07/20/2020 12:00:00 AM EDT needle 30 USE 1 NEEDLE UNDER THE SKIN ONCE A DAY USE 1 NEEDLE UNDER THE SKIN ONCE A DAY SOLD: 10/12/2020 [facility] Hydromorphone Hydrochloride 2 MG Oral Tablet Hydromorp nellie HCl 2 MG Hydromorphone HCl 2 MG 07/17/2020 12:00:00 AM EDT 1.0 {tablet_as_need ed} active Hydromorphone HCl 2 MG eCW1 ([facility]) Hydromorphone Hydrochloride 2 MG Oral Tablet Hydromorp nellie HCl 2 MG Hydromorphone HCl 2 MG 07/17/2020 12:00:00 AM EDT 1.0 {tablet_as_need ed} active Hydromorphone HCl 2 MG eCW1 ([facility]) 2 mg 07/17/2020 12:00:00 AM EDT tablet 32 TAKE ONE TABLET BY MOUTH EVERY 12 HOURS NEEDED MAX DAILY DOSE = 2 TAKE ONE TABLET BY MOUTH EVERY 12 HOURS NEEDED MAX DAILY DOSE = 2 SOLD: 07/17/2020 [facility] Hydromorphone Hydrochloride 2 MG Oral Tablet Hydromorp nellie HCl 2 MG Hydromorphone HCl 2 MG 07/17/2020 12:00:00 AM EDT 1.0 {tablet_as_need ed} active Hydromorphone HCl 2 MG eCW1 ([facility]) Hydromorphone Hydrochloride 2 MG Oral Tablet Hydromorp nellie HCl 2 MG Hydromorphone HCl 2 MG 07/17/2020 12:00:00 AM EDT 1.0 {tablet_as_need ed} active Hydromorphone HCl 2 MG eCW1 ([facility]) Hydromorphone Hydrochloride 2 MG Oral Tablet Hydromorp nellie HCl 2 MG Hydromorphone HCl 2 MG 07/17/2020 12:00:00 AM EDT 1.0 {tablet_as_need ed} active Hydromorphone HCl 2 MG eCW1 ([facility]) 100,000 unit/gram 07/10/2020 12:00:00 AM EDT powder 30 APPLY TO AFFECTED AREA(S) AROUND STOMA TWO TIMES A DAY DIRECTED UNTIL HEALED APPLY TO AFFECTED AREA(S) AROUND STOMA TWO TIMES A DAY DIRECTED UNTIL HEALED SOLD: 07/13/2020 [facility] Hydromorphone Hydrochloride 2 MG Oral Tablet Hydromorp nellie HCl 2 MG Hydromorphone HCl 2 MG 07/03/2020 12:00:00 AM EDT 1.0 {tablet_as_need ed} active Hydromorphone HCl 2 MG eCW1 ([facility]) ALCOHOL ANTISEPTIC PADS 07/03/2020 12:00:00 AM EDT pads, med icated 100 USE DIRECTED WHEN TESTING BLOOD SUGAR USE DIRECTED WHEN TESTING BLOOD SUGAR SOLD: 10/04/2020 [facility] Hydromorphone Hydrochloride 2 MG Oral Tablet Hydromorp nellie HCl 2 MG Hydromorphone HCl 2 MG 07/03/2020 12:00:00 AM EDT 1.0 {tablet_as_need ed} active Hydromorphone HCl 2 MG eCW1 ([facility]) ALCOHOL ANTISEPTIC PADS 07/03/2020 12:00:00 AM EDT pads, med icated 100 USE DIRECTED WHEN TESTING BLOOD SUGAR USE DIRECTED WHEN TESTING BLOOD SUGAR SOLD: 01/03/2021 [facility] 10 mg 07/03/2020 12:00:00 AM EDT capsule 120 TAKE ONE CAPSULE BY MOUTH FOUR TIMES A DAY TAKE ONE CAPSULE BY MOUTH FOUR TIMES A DAY SOLD: 10/23/2020 [facility] ALCOHOL ANTISEPTIC PADS 07/03/2020 12:00:00 AM EDT pads, med icated 100 USE DIRECTED WHEN TESTING BLOOD SUGAR USE DIRECTED WHEN TESTING BLOOD SUGAR SOLD: 07/26/2020 [facility] ALCOHOL ANTISEPTIC PADS 07/03/2020 12:00:00 AM EDT pads, med icated 100 USE DIRECTED WHEN TESTING BLOOD SUGAR USE DIRECTED WHEN TESTING BLOOD SUGAR SOLD: 09/11/2020 [facility] ALCOHOL ANTISEPTIC PADS 07/03/2020 12:00:00 AM EDT pads, med icated 100 USE DIRECTED WHEN TESTING BLOOD SUGAR USE DIRECTED WHEN TESTING BLOOD SUGAR SOLD: 08/18/2020 [facility] 10 mg 07/03/2020 12:00:00 AM EDT capsule 120 TAKE ONE CAPSULE BY MOUTH FOUR TIMES A DAY TAKE ONE CAPSULE BY MOUTH FOUR TIMES A DAY SOLD: 07/03/2020 [facility] ALCOHOL ANTISEPTIC PADS 07/03/2020 12:00:00 AM EDT pads, med icated 100 USE DIRECTED WHEN TESTING BLOOD SUGAR USE DIRECTED WHEN TESTING BLOOD SUGAR SOLD: 01/25/2021 [facility] 10 mg 07/03/2020 12:00:00 AM EDT capsule 120 TAKE ONE CAPSULE BY MOUTH FOUR TIMES A DAY TAKE ONE CAPSULE BY MOUTH FOUR TIMES A DAY SOLD: 11/20/2020 [facility] 10 mg 07/03/2020 12:00:00 AM EDT capsule 120 TAKE ONE CAPSULE BY MOUTH FOUR TIMES A DAY TAKE ONE CAPSULE BY MOUTH FOUR TIMES A DAY SOLD: 07/31/2020 [facility] 10 mg 07/03/2020 12:00:00 AM EDT capsule 120 TAKE ONE CAPSULE BY MOUTH FOUR TIMES A DAY TAKE ONE CAPSULE BY MOUTH FOUR TIMES A DAY SOLD: 08/28/2020 [facility] Hydromorphone Hydrochloride 2 MG Oral Tablet Hydromorp nellie HCl 2 MG Hydromorphone HCl 2 MG 07/03/2020 12:00:00 AM EDT 1.0 {tablet_as_need ed} active Hydromorphone HCl 2 MG eCW1 ([facility]) ALCOHOL ANTISEPTIC PADS 07/03/2020 12:00:00 AM EDT pads, med icated 100 USE DIRECTED WHEN TESTING BLOOD SUGAR USE DIRECTED WHEN TESTING BLOOD SUGAR SOLD: 03/09/2021 [facility] ALCOHOL ANTISEPTIC PADS 07/03/2020 12:00:00 AM EDT pads, med icated 100 USE DIRECTED WHEN TESTING BLOOD SUGAR USE DIRECTED WHEN TESTING BLOOD SUGAR SOLD: 02/15/2021 [facility] ALCOHOL ANTISEPTIC PADS 07/03/2020 12:00:00 AM EDT pads, med icated 100 USE DIRECTED WHEN TESTING BLOOD SUGAR USE DIRECTED WHEN TESTING BLOOD SUGAR SOLD: 10/27/2020 [facility] 10 mg 07/03/2020 12:00:00 AM EDT capsule 120 TAKE ONE CAPSULE BY MOUTH FOUR TIMES A DAY TAKE ONE CAPSULE BY MOUTH FOUR TIMES A DAY SOLD: 09/25/2020 [facility] ALCOHOL ANTISEPTIC PADS 07/03/2020 12:00:00 AM EDT pads, med icated 100 USE DIRECTED WHEN TESTING BLOOD SUGAR USE DIRECTED WHEN TESTING BLOOD SUGAR SOLD: 07/04/2020 [facility] ALCOHOL ANTISEPTIC PADS 07/03/2020 12:00:00 AM EDT pads, med icated 100 USE DIRECTED WHEN TESTING BLOOD SUGAR USE DIRECTED WHEN TESTING BLOOD SUGAR SOLD: 12/13/2020 [facility] ALCOHOL ANTISEPTIC PADS 07/03/2020 12:00:00 AM EDT pads, med icated 100 USE DIRECTED WHEN TESTING BLOOD SUGAR USE DIRECTED WHEN TESTING BLOOD SUGAR SOLD: 11/19/2020 [facility] 2 mg 07/03/2020 12:00:00 AM EDT tablet 10 TAKE ONE TABLET BY MOUTH EVERY 12 HOURS NEEDED MAXIMUM DAILY DOSE = 2 TABLETS TAKE ONE TABLET BY MOUTH EVERY 12 HOURS NEEDED MAXIMUM DAILY DOSE = 2 TABLETS SOLD: 07/03/2020 [facility] 0.6 mg/0.1 mL (18 mg/3 mL) 07/01/2020 12:00:00 AM EDT pen in jector 6 INJECT 0.6MG UNDER SKIN DAILY X 1 WEEK THEN INCREASE TO 1.2MG DAILY INJECT 0.6MG UNDER SKIN DAILY X 1 WEEK THEN INCREASE TO 1.2MG DAILY SOLD: 07/02/2020 [facility] 2 mg 06/29/2020 12:00:00 AM EDT tablet 6 TAKE ONE TABLET BY MOUTH EVERY 12 HOURS NEEDED MAX OF 2 PER DAY TAKE ONE TABLET BY MOUTH EVERY 12 HOURS NEEDED MAX OF 2 PER DAY SOLD: 06/29/2020 [facility] Hydromorphone Hydrochloride 2 MG Oral Tablet Hydromorp nellie HCl 2 MG Hydromorphone HCl 2 MG 06/29/2020 12:00:00 AM EDT 1.0 {tablet_as_need ed} active Hydromorphone HCl 2 MG eCW1 ([facility]) Mupirocin 0.02 MG/MG Topical Ointment Mupirocin 2 % Mupiroci n 2 % 06/26/2020 12:00:00 AM EDT 1.0 {application} active Mupirocin 2 % eCW1 ([facility]) Mupirocin 0.02 MG/MG Topical Ointment Mupirocin 2 % Mupiroci n 2 % 06/26/2020 12:00:00 AM EDT 1.0 {application} active Mupirocin 2 % eCW1 ([facility]) 2 % 06/26/2020 12:00:00 AM EDT ointment 22 APPLY ONE APPLICATION TOPICALLY THREE TIMES A DAY FOR 14 DAYS APPLY ONE APPLICATION TOPICALLY THREE TI MES A DAY FOR 14 DAYS SOLD: 07/07/2020 [facility] Mupirocin 0.02 MG/MG Topical Ointment Mupirocin 2 % Mupiroci n 2 % 06/26/2020 12:00:00 AM EDT 1.0 {application} active Mupirocin 2 % eCW1 ([facility]) 2 % 06/26/2020 12:00:00 AM EDT ointment 22 APPLY ONE APPLICATION TOPICALLY THREE TIMES A DAY FOR 14 DAYS APPLY ONE APPLICATION TOPICALLY THREE TI MES A DAY FOR 14 DAYS SOLD: 06/26/2020 [facility] Mupirocin 0.02 MG/MG Topical Ointment Mupirocin 2 % Mupiroci n 2 % 06/26/2020 12:00:00 AM EDT 1.0 {application} active Mupirocin 2 % eCW1 ([facility]) Mupirocin 0.02 MG/MG Topical Ointment Mupirocin 2 % Mupiroci n 2 % 06/26/2020 12:00:00 AM EDT 1.0 {application} active Mupirocin 2 % eCW1 ([facility]) Mupirocin 0.02 MG/MG Topical Ointment Mupirocin 2 % Mupiroci n 2 % 06/26/2020 12:00:00 AM EDT 1.0 {application} active Mupirocin 2 % eCW1 ([facility]) Mupirocin 0.02 MG/MG Topical Ointment Mupirocin 2 % Mupiroci n 2 % 06/26/2020 12:00:00 AM EDT 1.0 {application} active Mupirocin 2 % eCW1 ([facility]) Mupirocin 0.02 MG/MG Topical Ointment Mupirocin 2 % Mupiroci n 2 % 06/26/2020 12:00:00 AM EDT 1.0 {application} active Mupirocin 2 % eCW1 ([facility]) Mupirocin 0.02 MG/MG Topical Ointment Mupirocin 2 % Mupiroci n 2 % 06/26/2020 12:00:00 AM EDT 1.0 {application} active Mupirocin 2 % eCW1 ([facility]) 2 % 06/26/2020 12:00:00 AM EDT ointment 22 APPLY ONE APPLICATION TOPICALLY THREE TIMES A DAY FOR 14 DAYS APPLY ONE APPLICATION TOPICALLY THREE TI MES A DAY FOR 14 DAYS SOLD: 07/31/2020 [facility] 2 % 06/26/2020 12:00:00 AM EDT ointment 22 APPLY ONE APPLICATION TOPICALLY THREE TIMES A DAY FOR 14 DAYS APPLY ONE APPLICATION TOPICALLY THREE TI MES A DAY FOR 14 DAYS SOLD: 07/19/2020 [facility] Mupirocin 0.02 MG/MG Topical Ointment Mupirocin 2 % Mupiroci n 2 % 06/26/2020 12:00:00 AM EDT 1.0 {application} active Mupirocin 2 % eCW1 ([facility]) Mupirocin 0.02 MG/MG Topical Ointment Mupirocin 2 % Mupiroci n 2 % 06/26/2020 12:00:00 AM EDT 1.0 {application} active Mupirocin 2 % eCW1 ([facility]) Mupirocin 0.02 MG/MG Topical Ointment Mupirocin 2 % Mupiroci n 2 % 06/26/2020 12:00:00 AM EDT 1.0 {application} active Mupirocin 2 % eCW1 ([facility]) Mupirocin 0.02 MG/MG Topical Ointment Mupirocin 2 % Mupiroci n 2 % 06/26/2020 12:00:00 AM EDT 1.0 {application} active Mupirocin 2 % eCW1 ([facility]) Mupirocin 0.02 MG/MG Topical Ointment Mupirocin 2 % Mupiroci n 2 % 06/26/2020 12:00:00 AM EDT 1.0 {application} active Mupirocin 2 % eCW1 ([facility]) 2 mg 06/21/2020 12:00:00 AM EST tablet 6 TAKE ONE TABLET BY MOUTH EVERY 12 HOURS NEEDED MAX DAILY DOSE = 2 TABLETS TAKE ONE TABLET BY MOUTH EVERY 12 HOURS NEEDED MAX DAILY DOSE = 2 TABLETS SOLD: 06/21/2020 [facility] Hydromorphone Hydrochloride 2 MG Oral Tablet Hydromorp nellie HCl 2 MG Hydromorphone HCl 2 MG 06/21/2020 12:00:00 AM EST 1.0 {tablet_as_need ed} active Hydromorphone HCl 2 MG eCW1 ([facility]) Hydromorphone Hydrochloride 2 MG Oral Tablet Hydromorp nellie HCl 2 MG Hydromorphone HCl 2 MG 06/21/2020 12:00:00 AM EST 1.0 {tablet_as_need ed} active Hydromorphone HCl 2 MG eCW1 ([facility]) Hydromorphone Hydrochloride 2 MG Oral Tablet Hydromorp nellie HCl 2 MG Hydromorphone HCl 2 MG 06/21/2020 12:00:00 AM EST 1.0 {tablet_as_need ed} active Hydromorphone HCl 2 MG eCW1 ([facility]) 100,000 unit/gram 06/16/2020 12:00:00 AM EST powder 30 APPLY TO AFFECTED AREA AROUND STOMA TWO TIMES A DAY DIRECTED UNTIL HEALED APPLY TO AFFECTED AREA AROUND STOMA TWO TIMES A DAY DIRECTED UNTIL HEALED SOLD: 06/28/2020 [facility] 100,000 unit/gram 06/16/2020 12:00:00 AM EST powder 30 APPLY TO AFFECTED AREA AROUND STOMA TWO TIMES A DAY DIRECTED UNTIL HEALED APPLY TO AFFECTED AREA AROUND STOMA TWO TIMES A DAY DIRECTED UNTIL HEALED SOLD: 06/16/2020 [facility] 4 mg/2 mL 06/12/2020 12:00:00 AM EST solution 120 INJECT 4MG (1VIAL) TWO TIMES A DAY AT LEAST 8 HOURS APART DIRECTED INJECT 4MG (1VIAL) TWO TIMES A DAY AT LEAST 8 HOURS APART DIRECTED SOLD: 07/13/2020 [facility] 4 mg/2 mL 06/12/2020 12:00:00 AM EST solution 120 INJECT 4MG (1VIAL) TWO TIMES A DAY AT LEAST 8 HOURS APART DIRECTED INJECT 4MG (1VIAL) TWO TIMES A DAY AT LEAST 8 HOURS APART DIRECTED SOLD: 06/12/2020 [facility] 100,000 unit/gram 06/07/2020 12:00:00 AM EST cream 30 APPLY TO AFFECTED AREA(S) TWO TIMES A DAY FOR 14 DAYS APPLY TO AFFECTED AREA(S) TWO TIMES A DA Y FOR 14 DAYS SOLD: 06/07/2020 [facility] H Surgical 4"x10yd - Medipore H Surgical 4"x10yd - 06/02/2020 12:00:00 AM EST active Medipore H Surgic al 4"x10yd - eCW1 ([facility]) Med[employer] H Surgical 4"x10yd - Med[employer] H Surgical 4"x10yd - 06/02/2020 12:00:00 AM EST active eCW1 ([facility]) Medipore H Surgical 4"x10yd - Med[employer] H Surgical 4"x10yd - 06/02/2020 12:00:00 AM EST active Medipore H Surgic al 4"x10yd - eCW1 ([facility]) Medipore H Surgical 4"x10yd - Med[employer] H Surgical 4"x10yd - 06/02/2020 12:00:00 AM EST active Medipore H Surgic al 4"x10yd - eCW1 ([facility]) Medipore H Surgical 4"x10yd - Med[employer] H Surgical 4"x10yd - 06/02/2020 12:00:00 AM EST active Medipore H Surgic al 4"x10yd - eCW1 ([facility]) Medipore H Surgical 4"x10yd - Med[employer] H Surgical 4"x10yd - 06/02/2020 12:00:00 AM EST active Medipore H Surgic al 4"x10yd - eCW1 ([facility]) Med[employer] H Surgical 4"x10yd - Med[employer] H Surgical 4"x10yd - 06/02/2020 12:00:00 AM EST active Medipore H Surgic al 4"x10yd - eCW1 ([facility]) Med[employer] H Surgical 4"x10yd - Med[employer] H Surgical 4"x10yd - 06/02/2020 12:00:00 AM EST active Medipore H Surgic al 4"x10yd - eCW1 ([facility]) Med[employer] H Surgical 4"x10yd - Med[employer] H Surgical 4"x10yd - 06/02/2020 12:00:00 AM EST active Medipore H Surgic al 4"x10yd - eCW1 ([facility]) Medipore H Surgical 4"x10yd - Med[employer] H Surgical 4"x10yd - 06/02/2020 12:00:00 AM EST active Medipore H Surgic al 4"x10yd - eCW1 ([facility]) Med[employer] H Surgical 4"x10yd - Med[employer] H Surgical 4"x10yd - 06/02/2020 12:00:00 AM EST active Medipore H Surgic al 4"x10yd - eCW1 ([facility]) Med[employer] H Surgical 4"x10yd - Med[employer] H Surgical 4"x10yd - 06/02/2020 12:00:00 AM EST active Medipore H Surgic al 4"x10yd - eCW1 ([facility]) Med[employer] H Surgical 4"x10yd - Med[employer] H Surgical 4"x10yd - 06/02/2020 12:00:00 AM EST active Medipore H Surgic al 4"x10yd - eCW1 ([facility]) Med[employer] H Surgical 4"x10yd - Med[employer] H Surgical 4"x10yd - 06/02/2020 12:00:00 AM EST active Medipore H Surgic al 4"x10yd - eCW1 ([facility]) Medipore H Surgical 4"x10yd - Med[employer] H Surgical 4"x10yd - 06/02/2020 12:00:00 AM EST active Medipore H Surgic al 4"x10yd - eCW1 ([facility]) Medipore H Surgical 4"x10yd - Med[employer] H Surgical 4"x10yd - 06/02/2020 12:00:00 AM EST active Medipore H Surgic al 4"x10yd - eCW1 ([facility]) Medipore H Surgical 4"x10yd - Med[employer] H Surgical 4"x10yd - 06/02/2020 12:00:00 AM EST active Medipore H Surgic al 4"x10yd - eCW1 ([facility]) Med[employer] H Surgical 4"x10yd - Med[employer] H Surgical 4"x10yd - 06/02/2020 12:00:00 AM EST active Medipore H Surgic al 4"x10yd - eCW1 ([facility]) Medipore H Surgical 4"x10yd - Med[employer] H Surgical 4"x10yd - 06/02/2020 12:00:00 AM EST active Medipore H Surgic al 4"x10yd - eCW1 ([facility]) Medipore H Surgical 4"x10yd - Med[employer] H Surgical 4"x10yd - 06/02/2020 12:00:00 AM EST active Medipore H Surgic al 4"x10yd - eCW1 ([facility]) Med[employer] H Surgical 4"x10yd - Med[employer] H Surgical 4"x10yd - 06/02/2020 12:00:00 AM EST active Medipore H Surgic al 4"x10yd - W1 ([facility]) Med[employer] H Surgical 4"x10yd - Med[employer] H Surgical 4"x10yd - 06/02/2020 12:00:00 AM EST active Medipore H Surgic al 4"x10yd - eCW1 ([facility]) Med[employer] H Surgical 4"x10yd - Med[employer] H Surgical 4"x10yd - 06/02/2020 12:00:00 AM EST active Medipore H Surgic al 4"x10yd - eCW1 ([facility]) Med[employer] H Surgical 4"x10yd - Med[employer] H Surgical 4"x10yd - 06/02/2020 12:00:00 AM EST active Medipore H Surgic al 4"x10yd - eCW1 ([facility]) Med[employer] H Surgical 4"x10yd - Med[employer] H Surgical 4"x10yd - 06/02/2020 12:00:00 AM EST active Medipore H Surgic al 4"x10yd - eCW1 ([facility]) Med[employer] H Surgical 4"x10yd - Med[employer] H Surgical 4"x10yd - 06/02/2020 12:00:00 AM EST active Medipore H Surgic al 4"x10yd - eCW1 ([facility]) Med[employer] H Surgical 4"x10yd - Med[employer] H Surgical 4"x10yd - 06/02/2020 12:00:00 AM EST active Medipore H Surgic al 4"x10yd - eCW1 ([facility]) Med[employer] H Surgical 4"x10yd - Med[employer] H Surgical 4"x10yd - 06/02/2020 12:00:00 AM EST active Medipore H Surgic al 4"x10yd - eCW1 ([facility]) Med[employer] H Surgical 4"x10yd - Med[employer] H Surgical 4"x10yd - 06/02/2020 12:00:00 AM EST active Medipore H Surgic al 4"x10yd - eCW1 ([facility]) Med[employer] H Surgical 4"x10yd - Med[employer] H Surgical 4"x10yd - 06/02/2020 12:00:00 AM EST active Medipore H Surgic al 4"x10yd - eCW1 ([facility]) Medipore H Surgical 4"x10yd - Med[employer] H Surgical 4"x10yd - 06/02/2020 12:00:00 AM EST active Medipore H Surgic al 4"x10yd - eCW1 ([facility]) Med[employer] H Surgical 4"x10yd - Med[employer] H Surgical 4"x10yd - 06/02/2020 12:00:00 AM EST active eCW1 ([facility]) Med[employer] H Surgical 4"x10yd - Medipore H Surgical 4"x10yd - 06/02/2020 12:00:00 AM EST active Medipore H Surgic al 4"x10yd - eCW1 ([facility]) Medipore H Surgical 4"x10yd - Med[employer] H Surgical 4"x10yd - 06/02/2020 12:00:00 AM EST active Medipore H Surgic al 4"x10yd - eCW1 ([facility]) Med[employer] H Surgical 4"x10yd - Med[employer] H Surgical 4"x10yd - 06/02/2020 12:00:00 AM EST active Medipore H Surgic al 4"x10yd - eCW1 ([facility]) Med[employer] H Surgical 4"x10yd - Med[employer] H Surgical 4"x10yd - 06/02/2020 12:00:00 AM EST active Medipore H Surgic al 4"x10yd - eCW1 ([facility]) Med[employer] H Surgical 4"x10yd - Med[employer] H Surgical 4"x10yd - 06/02/2020 12:00:00 AM EST active Medipore H Surgic al 4"x10yd - eCW1 ([facility]) Med[employer] H Surgical 4"x10yd - Med[employer] H Surgical 4"x10yd - 06/02/2020 12:00:00 AM EST active Medipore H Surgic al 4"x10yd - eCW1 ([facility]) Med[employer] H Surgical 4"x10yd - Med[employer] H Surgical 4"x10yd - 06/02/2020 12:00:00 AM EST active Medipore H Surgic al 4"x10yd - eCW1 ([facility]) Medipore H Surgical 4"x10yd - Med[employer] H Surgical 4"x10yd - 06/02/2020 12:00:00 AM EST active Medipore H Surgic al 4"x10yd - eCW1 ([facility]) Med[employer] H Surgical 4"x10yd - Med[employer] H Surgical 4"x10yd - 06/02/2020 12:00:00 AM EST active Medipore H Surgic al 4"x10yd - eCW1 ([facility]) Med[employer] H Surgical 4"x10yd - Med[employer] H Surgical 4"x10yd - 06/02/2020 12:00:00 AM EST active Medipore H Surgic al 4"x10yd - eCW1 ([facility]) Med[employer] H Surgical 4"x10yd - Med[employer] H Surgical 4"x10yd - 06/02/2020 12:00:00 AM EST active Medipore H Surgic al 4"x10yd - eCW1 ([facility]) Med[employer] H Surgical 4"x10yd - Med[employer] H Surgical 4"x10yd - 06/02/2020 12:00:00 AM EST active Medipore H Surgic al 4"x10yd - eCW1 ([facility]) Med[employer] H Surgical 4"x10yd - Med[employer] H Surgical 4"x10yd - 06/02/2020 12:00:00 AM EST active Medipore H Surgic al 4"x10yd - eCW1 ([facility]) Med[employer] H Surgical 4"x10yd - Med[employer] H Surgical 4"x10yd - 06/02/2020 12:00:00 AM EST active Medipore H Surgic al 4"x10yd - eCW1 ([facility]) Med[employer] H Surgical 4"x10yd - Med[employer] H Surgical 4"x10yd - 06/02/2020 12:00:00 AM EST active Medipore H Surgic al 4"x10yd - eCW1 ([facility]) Med[employer] H Surgical 4"x10yd - Med[employer] H Surgical 4"x10yd - 06/02/2020 12:00:00 AM EST active Medipore H Surgic al 4"x10yd - eCW1 ([facility]) Med[employer] H Surgical 4"x10yd - Med[employer] H Surgical 4"x10yd - 06/02/2020 12:00:00 AM EST active Medipore H Surgic al 4"x10yd - eCW1 ([facility]) Med[employer] H Surgical 4"x10yd - Med[employer] H Surgical 4"x10yd - 06/02/2020 12:00:00 AM EST active Medipore H Surgic al 4"x10yd - eCW1 ([facility]) Med[employer] H Surgical 4"x10yd - Med[employer] H Surgical 4"x10yd - 06/02/2020 12:00:00 AM EST active Medipore H Surgic al 4"x10yd - eCW1 ([facility]) Med[employer] H Surgical 4"x10yd - Med[employer] H Surgical 4"x10yd - 06/02/2020 12:00:00 AM EST active Medipore H Surgic al 4"x10yd - eCW1 ([facility]) Med[employer] H Surgical 4"x10yd - Med[employer] H Surgical 4"x10yd - 06/02/2020 12:00:00 AM EST active Medipore H Surgic al 4"x10yd - eCW1 ([facility]) Med[employer] H Surgical 4"x10yd - Med[employer] H Surgical 4"x10yd - 06/02/2020 12:00:00 AM EST active Medipore H Surgic al 4"x10yd - eCW1 ([facility]) Med[employer] H Surgical 4"x10yd - Med[employer] H Surgical 4"x10yd - 06/02/2020 12:00:00 AM EST active Medipore H Surgic al 4"x10yd - eCW1 ([facility]) Med[employer] H Surgical 4"x10yd - Med[employer] H Surgical 4"x10yd - 06/02/2020 12:00:00 AM EST active Medipore H Surgic al 4"x10yd - eCW1 ([facility]) Med[employer] H Surgical 4"x10yd - Med[employer] H Surgical 4"x10yd - 06/02/2020 12:00:00 AM EST active Medipore H Surgic al 4"x10yd - eCW1 ([facility]) Med[employer] H Surgical 4"x10yd - Med[employer] H Surgical 4"x10yd - 06/02/2020 12:00:00 AM EST active Medipore H Surgic al 4"x10yd - eCW1 ([facility]) Med[employer] H Surgical 4"x10yd - Med[employer] H Surgical 4"x10yd - 06/02/2020 12:00:00 AM EST active Medipore H Surgic al 4"x10yd - eCW1 ([facility]) Med[employer] H Surgical 4"x10yd - Med[employer] H Surgical 4"x10yd - 06/02/2020 12:00:00 AM EST active Medipore H Surgic al 4"x10yd - eCW1 ([facility]) Med[employer] H Surgical 4"x10yd - Med[employer] H Surgical 4"x10yd - 06/02/2020 12:00:00 AM EST active Medipore H Surgic al 4"x10yd - eCW1 ([facility]) Med[employer] H Surgical 4"x10yd - Med[employer] H Surgical 4"x10yd - 06/02/2020 12:00:00 AM EST active eCW1 ([facility]) Med[employer] H Surgical 4"x10yd - Medipore H Surgical 4"x10yd - 06/02/2020 12:00:00 AM EST active Medipore H Surgic al 4"x10yd - eCW1 ([facility]) Med[employer] H Surgical 4"x10yd - Med[employer] H Surgical 4"x10yd - 06/02/2020 12:00:00 AM EST active Medipore H Surgic al 4"x10yd - eCW1 ([facility]) Med[employer] H Surgical 4"x10yd - Med[employer] H Surgical 4"x10yd - 06/02/2020 12:00:00 AM EST active Medipore H Surgic al 4"x10yd - eCW1 ([facility]) Med[employer] H Surgical 4"x10yd - Med[employer] H Surgical 4"x10yd - 06/02/2020 12:00:00 AM EST active Medipore H Surgic al 4"x10yd - eCW1 ([facility]) Med[employer] H Surgical 4"x10yd - Med[employer] H Surgical 4"x10yd - 06/02/2020 12:00:00 AM EST active Medipore H Surgic al 4"x10yd - eCW1 ([facility]) Med[employer] H Surgical 4"x10yd - Med[employer] H Surgical 4"x10yd - 06/02/2020 12:00:00 AM EST active Medipore H Surgic al 4"x10yd - eCW1 ([facility]) Med[employer] H Surgical 4"x10yd - Med[employer] H Surgical 4"x10yd - 06/02/2020 12:00:00 AM EST active Med[employer] H Surgic al 4"x10yd - eCW1 ([facility]) Med[employer] H Surgical 4"x10yd - Med[employer] H Surgical 4"x10yd - 06/02/2020 12:00:00 AM EST active Medipore H Surgic al 4"x10yd - eCW1 ([facility]) Med[employer] H Surgical 4"x10yd - Med[employer] H Surgical 4"x10yd - 06/02/2020 12:00:00 AM EST active Med[employer] H Surgic al 4"x10yd - eCW1 ([facility]) Med[employer] H Surgical 4"x10yd - Med[employer] H Surgical 4"x10yd - 06/02/2020 12:00:00 AM EST active Medipore H Surgic al 4"x10yd - eCW1 ([facility]) Med[employer] H Surgical 4"x10yd - Med[employer] H Surgical 4"x10yd - 06/02/2020 12:00:00 AM EST active Medipore H Surgic al 4"x10yd - eCW1 ([facility]) Med[employer] H Surgical 4"x10yd - Med[employer] H Surgical 4"x10yd - 06/02/2020 12:00:00 AM EST active Med[employer] H Surgic al 4"x10yd - eCW1 ([facility]) Med[employer] H Surgical 4"x10yd - Med[employer] H Surgical 4"x10yd - 06/02/2020 12:00:00 AM EST active Med[employer] H Surgic al 4"x10yd - eCW1 ([facility]) Med[employer] H Surgical 4"x10yd - Med[employer] H Surgical 4"x10yd - 06/02/2020 12:00:00 AM EST active Med[employer] H Surgic al 4"x10yd - eCW1 ([facility]) Med[employer] H Surgical 4"x10yd - Med[employer] H Surgical 4"x10yd - 06/02/2020 12:00:00 AM EST active Med[employer] H Surgic al 4"x10yd - eCW1 ([facility]) Med[employer] H Surgical 4"x10yd - Med[employer] H Surgical 4"x10yd - 06/02/2020 12:00:00 AM EST active Med[employer] H Surgic al 4"x10yd - eCW1 ([facility]) Med[employer] H Surgical 4"x10yd - Med[employer] H Surgical 4"x10yd - 06/02/2020 12:00:00 AM EST active Med[employer] H Surgic al 4"x10yd - eCW1 ([facility]) Med[employer] H Surgical 4"x10yd - Med[employer] H Surgical 4"x10yd - 06/02/2020 12:00:00 AM EST active Medipore H Surgic al 4"x10yd - eCW1 ([facility]) Med[employer] H Surgical 4"x10yd - Med[employer] H Surgical 4"x10yd - 06/02/2020 12:00:00 AM EST active Medipore H Surgic al 4"x10yd - eCW1 ([facility]) Med[employer] H Surgical 4"x10yd - Med[employer] H Surgical 4"x10yd - 06/02/2020 12:00:00 AM EST active Medipore H Surgic al 4"x10yd - eCW1 ([facility]) Med[employer] H Surgical 4"x10yd - Med[employer] H Surgical 4"x10yd - 06/02/2020 12:00:00 AM EST active Med[employer] H Surgic al 4"x10yd - eCW1 ([facility]) Med[employer] H Surgical 4"x10yd - Med[employer] H Surgical 4"x10yd - 06/02/2020 12:00:00 AM EST active Med[employer] H Surgic al 4"x10yd - eCW1 ([facility]) Med[employer] H Surgical 4"x10yd - Med[employer] H Surgical 4"x10yd - 06/02/2020 12:00:00 AM EST active Med[employer] H Surgic al 4"x10yd - eCW1 ([facility]) Med[employer] H Surgical 4"x10yd - Med[employer] H Surgical 4"x10yd - 06/02/2020 12:00:00 AM EST active Med[employer] H Surgic al 4"x10yd - eCW1 ([facility]) [employer] H Surgical 4"x10yd - [employer] H Surgical 4"x10yd - 06/02/2020 12:00:00 AM EST active [employer] H Surgic al 4"x10yd - eCW1 ([facility]) [employer] H Surgical 4"x10yd - [employer] H Surgical 4"x10yd - 06/02/2020 12:00:00 AM EST active [employer] H Surgic al 4"x10yd - W1 ([facility]) [employer] H Surgical 4"x10yd - [employer] H Surgical 4"x10yd - 06/02/2020 12:00:00 AM EST active [employer] H Surgic al 4"x10yd - eCW1 ([facility]) [employer] H Surgical 4"x10yd - [employer] H Surgical 4"x10yd - 06/02/2020 12:00:00 AM EST active [employer] H Surgic al 4"x10yd - eCW1 ([facility]) [employer] H Surgical 4"x10yd - [employer] H Surgical 4"x10yd - 06/02/2020 12:00:00 AM EST active [employer] H Surgic al 4"x10yd - eCW1 ([facility]) [employer] H Surgical 4"x10yd - [employer] H Surgical 4"x10yd - 06/02/2020 12:00:00 AM EST active [employer] H Surgic al 4"x10yd - eCW1 ([facility]) [employer] H Surgical 4"x10yd - [employer] H Surgical 4"x10yd - 06/02/2020 12:00:00 AM EST active [employer] H Surgic al 4"x10yd - eCW1 ([facility]) [employer] H Surgical 4"x10yd - [employer] H Surgical 4"x10yd - 06/02/2020 12:00:00 AM EST active [employer] H Surgic al 4"x10yd - eCW1 ([facility]) [employer] H Surgical 4"x10yd - [employer] H Surgical 4"x10yd - 06/02/2020 12:00:00 AM EST active [employer] H Surgic al 4"x10yd - eCW1 ([facility]) [employer] H Surgical 4"x10yd - [employer] H Surgical 4"x10yd - 06/02/2020 12:00:00 AM EST active [employer] H Surgic al 4"x10yd - eCW1 ([facility]) [employer] H Surgical 4"x10yd - [employer] H Surgical 4"x10yd - 06/02/2020 12:00:00 AM EST active [employer] H Surgic al 4"x10yd - eCW1 ([facility]) [employer] H Surgical 4"x10yd - [employer] H Surgical 4"x10yd - 06/02/2020 12:00:00 AM EST active [employer] H Surgic al 4"x10yd - eCW1 ([facility]) [employer] H Surgical 4"x10yd - [employer] H Surgical 4"x10yd - 06/02/2020 12:00:00 AM EST active Medipore H Surgic al 4"x10yd - eCW1 ([facility]) Medipore H Surgical 4"x10yd - Medipore H Surgical 4"x10yd - 06/02/2020 12:00:00 AM EST active Medipore H Surgic al 4"x10yd - eCW1 ([facility]) Medipore H Surgical 4"x10yd - Medipore H Surgical 4"x10yd - 06/02/2020 12:00:00 AM EST active Medipore H Surgic al 4"x10yd - eCW1 ([facility]) Medipore H Surgical 4"x10yd - Medipore H Surgical 4"x10yd - 06/02/2020 12:00:00 AM EST active Medipore H Surgic al 4"x10yd - eCW1 ([facility]) Medipore H Surgical 4"x10yd - Medipore H Surgical 4"x10yd - 06/02/2020 12:00:00 AM EST active Medipore H Surgic al 4"x10yd - eCW1 ([facility]) Medipore H Surgical 4"x10yd - Medipore H Surgical 4"x10yd - 06/02/2020 12:00:00 AM EST active Medipore H Surgic al 4"x10yd - eCW1 ([facility]) Medipore H Surgical 4"x10yd - Medipore H Surgical 4"x10yd - 06/02/2020 12:00:00 AM EST active Medipore H Surgic al 4"x10yd - eCW1 ([facility]) Medipore H Surgical 4"x10yd - Medipore H Surgical 4"x10yd - 06/02/2020 12:00:00 AM EST active Medipore H Surgic al 4"x10yd - eCW1 ([facility]) Medipore H Surgical 4"x10yd - Medipore H Surgical 4"x10yd - 06/02/2020 12:00:00 AM EST active Medipore H Surgic al 4"x10yd - eCW1 ([facility]) 100 unit/mL (3 mL) 06/01/2020 12:00:00 AM EST insulin pen 15 INJECT 35 UNITS UNDER THE SKIN IN THE MORNING INJECT 35 UNITS UNDER THE SKIN IN THE MORNING SOLD: 06/30/2020 [facility] 100 unit/mL (3 mL) 06/01/2020 12:00:00 AM EST insulin pen 15 INJECT 35 UNITS UNDER THE SKIN IN THE MORNING INJECT 35 UNITS UNDER THE SKIN IN THE MORNING SOLD: 06/02/2020 [facility] 100 unit/mL (3 mL) 06/01/2020 12:00:00 AM EST insulin pen 15 INJECT 35 UNITS UNDER THE SKIN IN THE MORNING INJECT 35 UNITS UNDER THE SKIN IN THE MORNING SOLD: 08/25/2020 [facility] 100 unit/mL (3 mL) 06/01/2020 12:00:00 AM EST insulin pen 15 INJECT 35 UNITS UNDER THE SKIN IN THE MORNING INJECT 35 UNITS UNDER THE SKIN IN THE MORNING SOLD: 09/22/2020 [facility] 100 unit/mL (3 mL) 06/01/2020 12:00:00 AM EST insulin pen 15 INJECT 35 UNITS UNDER THE SKIN IN THE MORNING INJECT 35 UNITS UNDER THE SKIN IN THE MORNING SOLD: 07/28/2020 [facility] 31 gauge x 5/16" 05/30/2020 12:00:00 AM EST needle 60 USE DIRECTED TWO TIMES A DAY USE DIRECTED TWO TIMES A DAY SOLD: 05/30/2020 [facility] 31 gauge x 5/16" 05/30/2020 12:00:00 AM EST needle 60 USE DIRECTED TWO TIMES A DAY USE DIRECTED TWO TIMES A DAY SOLD: 09/19/2020 [facility] 31 gauge x 5/16" 05/30/2020 12:00:00 AM EST needle 60 USE DIRECTED TWO TIMES A DAY USE DIRECTED TWO TIMES A DAY SOLD: 08/21/2020 [facility] 31 gauge x 5/16" 05/30/2020 12:00:00 AM EST needle 60 USE DIRECTED TWO TIMES A DAY USE DIRECTED TWO TIMES A DAY SOLD: 07/24/2020 [facility] 31 gauge x 5/16" 05/30/2020 12:00:00 AM EST needle 60 USE DIRECTED TWO TIMES A DAY USE DIRECTED TWO TIMES A DAY SOLD: 06/26/2020 [facility] 31 gauge x 5/16" 05/30/2020 12:00:00 AM EST needle 60 USE DIRECTED TWO TIMES A DAY USE DIRECTED TWO TIMES A DAY SOLD: 10/17/2020 [facility] 2 % 05/27/2020 12:00:00 AM EST ointment 22 APPLY 1 APPLICATION INSIDE NOSTRILS THREE TIMES A DAY FOR 10 DAYS APPLY 1 APPLICATION INSIDE NOSTRILS THRE E TIMES A DAY FOR 10 DAYS SOLD: 05/28/2020 [facility] 100,000 unit/gram 05/22/2020 12:00:00 AM EST powder [...] act nba Mupirocin Calcium 2 % eCW1 ([facility]) Mupirocin 20 MG/ML Topical Cream Mupirocin Calcium 2 % Mupir ocin Calcium 2 % 05/12/2020 12:00:00 AM EST 1.0 {application} act nba Mupirocin Calcium 2 % eCW1 ([facility]) Mupirocin 20 MG/ML Topical Cream Mupirocin Calcium 2 % Mupir ocin Calcium 2 % 05/12/2020 12:00:00 AM EST 1.0 {application} act nba Mupirocin Calcium 2 % eCW1 ([facility]) 0.01 % (0.1 mg/gram) 05/12/2020 12:00:00 AM EST cream 42 INSERT ONE GRAM VAGINALLY EVERY DAY INSERT ONE GRAM VAGINALLY EVERY DAY SOLD: 10/09/2020 [facility] Mupirocin 20 MG/ML Topical Cream Mupirocin Calcium 2 % Mupir ocin Calcium 2 % 05/12/2020 12:00:00 AM EST 1.0 {application} act nba Mupirocin Calcium 2 % eCW1 ([facility]) 0.01 % (0.1 mg/gram) 05/12/2020 12:00:00 AM EST cream 42 INSERT ONE GRAM VAGINALLY EVERY DAY INSERT ONE GRAM VAGINALLY EVERY DAY SOLD: 06/19/2020 [facility] Mupirocin 20 MG/ML Topical Cream Mupirocin Calcium 2 % Mupir ocin Calcium 2 % 05/12/2020 12:00:00 AM EST 1.0 {application} act nba Mupirocin Calcium 2 % eCW1 ([facility]) Mupirocin 20 MG/ML Topical Cream Mupirocin Calcium 2 % Mupir ocin Calcium 2 % 05/12/2020 12:00:00 AM EST 1.0 {application} act nba Mupirocin Calcium 2 % eCW1 ([facility]) 0.01 % (0.1 mg/gram) 05/12/2020 12:00:00 AM EST cream 42 INSERT ONE GRAM VAGINALLY EVERY DAY INSERT ONE GRAM VAGINALLY EVERY DAY SOLD: 07/17/2020 [facility] Mupirocin 20 MG/ML Topical Cream Mupirocin Calcium 2 % Mupir ocin Calcium 2 % 05/12/2020 12:00:00 AM EST 1.0 {application} act nba Mupirocin Calcium 2 % eCW1 ([facility]) Mupirocin 20 MG/ML Topical Cream Mupirocin Calcium 2 % Mupir ocin Calcium 2 % 05/12/2020 12:00:00 AM EST 1.0 {application} act nba Mupirocin Calcium 2 % eCW1 ([facility]) 0.01 % (0.1 mg/gram) 05/12/2020 12:00:00 AM EST cream 42 INSERT ONE GRAM VAGINALLY EVERY DAY INSERT ONE GRAM VAGINALLY EVERY DAY SOLD: 05/12/2020 [facility] 0.01 % (0.1 mg/gram) 05/12/2020 12:00:00 AM EST cream 42 INSERT ONE GRAM VAGINALLY EVERY DAY INSERT ONE GRAM VAGINALLY EVERY DAY SOLD: 09/11/2020 [facility] 0.01 % (0.1 mg/gram) 05/12/2020 12:00:00 AM EST cream 42 INSERT ONE GRAM VAGINALLY EVERY DAY INSERT ONE GRAM VAGINALLY EVERY DAY SOLD: 08/14/2020 [facility] Mupirocin 20 MG/ML Topical Cream Mupirocin Calcium 2 % Mupir ocin Calcium 2 % 05/12/2020 12:00:00 AM EST 1.0 {application} act nba Mupirocin Calcium 2 % eCW1 ([facility]) 0.6 mg/0.1 mL (18 mg/3 mL) 05/10/2020 12:00:00 AM EST pen in jector 6 INJECT 0.6MG ONCE DAILY FOR 1 WEEK THEN INCREASE TO 1.2MG ONCE DAILY INJECT 0.6MG ONCE DAILY FOR 1 WEEK THEN INCREASE TO 1.2MG ONCE DAILY SOLD: 05/10/2020 [facility] 0.6 mg/0.1 mL (18 mg/3 mL) 05/10/2020 12:00:00 AM EST pen in jector 6 INJECT 0.6MG ONCE DAILY FOR 1 WEEK THEN INCREASE TO 1.2MG ONCE DAILY INJECT 0.6MG ONCE DAILY FOR 1 WEEK THEN INCREASE TO 1.2MG ONCE DAILY SOLD: 06/05/2020 [facility] 10 mg 05/04/2020 12:00:00 AM EST tablet 90 TAKE ONE TABLET BY MOUTH THREE TIMES A DAY BEFORE MEALS TAKE ONE TABLET BY MOUTH THREE TIMES A D AY BEFORE MEALS SOLD: 06/30/2020 [facility] 10 mg 05/04/2020 12:00:00 AM EST tablet 90 TAKE ONE TABLET BY MOUTH THREE TIMES A DAY BEFORE MEALS TAKE ONE TABLET BY MOUTH THREE TIMES A D AY BEFORE MEALS SOLD: 06/02/2020 [facility] 10 mg 05/04/2020 12:00:00 AM EST tablet 90 TAKE ONE TABLET BY MOUTH THREE TIMES A DAY BEFORE MEALS TAKE ONE TABLET BY MOUTH THREE TIMES A D AY BEFORE MEALS SOLD: 09/21/2020 [facility] 10 mg 05/04/2020 12:00:00 AM EST tablet 90 TAKE ONE TABLET BY MOUTH THREE TIMES A DAY BEFORE MEALS TAKE ONE TABLET BY MOUTH THREE TIMES A D AY BEFORE MEALS SOLD: 07/27/2020 [facility] 10 mg 05/04/2020 12:00:00 AM EST tablet 90 TAKE ONE TABLET BY MOUTH THREE TIMES A DAY BEFORE MEALS TAKE ONE TABLET BY MOUTH THREE TIMES A D AY BEFORE MEALS SOLD: 08/24/2020 [facility] 10 mg 05/04/2020 12:00:00 AM EST tablet [...] AT BED NEEDED SOLD: 05/24/2020 [facility] 80 mg 04/26/2020 12:00:00 AM EST tablet,chewable 180 CHEW 2 TABLETS BY MOUTH 3 TIMES A DAY AFTER MEALS & AT BED NEEDED CHEW 2 TABLETS BY MOUTH 3 TIMES A DAY AFTER MEALS & AT BED NEEDED SOLD: 06/21/2020 [facility] 80 mg 04/26/2020 12:00:00 AM EST tablet,chewable 180 CHEW 2 TABLETS BY MOUTH 3 TIMES A DAY AFTER MEALS & AT BED NEEDED CHEW 2 TABLETS BY MOUTH 3 TIMES A DAY AFTER MEALS & AT BED NEEDED SOLD: 07/19/2020 [facility] 80 mg 04/26/2020 12:00:00 AM EST tablet,chewable 180 CHEW 2 TABLETS BY MOUTH 3 TIMES A DAY AFTER MEALS & AT BED NEEDED CHEW 2 TABLETS BY MOUTH 3 TIMES A DAY AFTER MEALS & AT BED NEEDED SOLD: 09/11/2020 [facility] 80 mg 04/26/2020 12:00:00 AM EST tablet,chewable 180 CHEW 2 TABLETS BY MOUTH 3 TIMES A DAY AFTER MEALS & AT BED NEEDED CHEW 2 TABLETS BY MOUTH 3 TIMES A DAY AFTER MEALS & AT BED NEEDED SOLD: 08/14/2020 [facility] 80 mg 04/26/2020 12:00:00 AM EST tablet,chewable 180 CHEW 2 TABLETS BY MOUTH 3 TIMES A DAY AFTER MEALS & AT BED NEEDED CHEW 2 TABLETS BY MOUTH 3 TIMES A DAY AFTER MEALS & AT BED NEEDED SOLD: 04/26/2020 [facility] 50 mcg/actuation 04/18/2020 12:00:00 AM EST spray,non-aeroso l 17 SPRAY TWO SPRAYS IN EACH NOSTRIL ONCE A DAY SPRAY TWO SPRAYS IN EACH NOSTRIL ONCE A DAY SOLD: 06/12/2020 [facility] 50 mcg/actuation 04/18/2020 12:00:00 AM EST spray,non-aeroso l 17 SPRAY TWO SPRAYS IN EACH NOSTRIL ONCE A DAY SPRAY TWO SPRAYS IN EACH NOSTRIL ONCE A DAY SOLD: 05/15/2020 [facility] 50 mcg/actuation 04/18/2020 12:00:00 AM EST spray,non-aeroso l 17 SPRAY TWO SPRAYS IN EACH NOSTRIL ONCE A DAY SPRAY TWO SPRAYS IN EACH NOSTRIL ONCE A DAY SOLD: 04/18/2020 [facility] 50 mcg/actuation 04/18/2020 12:00:00 AM EST spray,non-aeroso l 17 SPRAY TWO SPRAYS IN EACH NOSTRIL ONCE A DAY SPRAY TWO SPRAYS IN EACH NOSTRIL ONCE A DAY SOLD: 07/13/2020 [facility] 90 mcg/actuation 04/17/2020 12:00:00 AM EST HFA aerosol inha ler 8 INHALE TWO PUFFS BY MOUTH EVERY 4 HOURS NEEDED INHALE TWO PUFFS BY MOUTH EVERY 4 HOURS NEEDED SOLD: 06/12/2020 [facility] 90 mcg/actuation 04/17/2020 12:00:00 AM EST HFA aerosol inha ler 8 INHALE TWO PUFFS BY MOUTH EVERY 4 HOURS NEEDED INHALE TWO PUFFS BY MOUTH EVERY 4 HOURS NEEDED SOLD: 04/17/2020 [facility] 90 mcg/actuation 04/17/2020 12:00:00 AM EST HFA aerosol inha ler 8 INHALE TWO PUFFS BY MOUTH EVERY 4 HOURS NEEDED INHALE TWO PUFFS BY MOUTH EVERY 4 HOURS NEEDED SOLD: 05/15/2020 [facility] 50 mg 04/15/2020 12:00:00 AM EST tablet 120 TAKE ONE TABLET BY MOUTH EVERY MORNING AND TAKE THREE TABLETS BY MOUTH AT BEDTIME, DIRECTED TAKE ONE TABLET BY MOUTH EVERY MORNING AND TAKE THREE TABLETS BY MOUTH AT BEDTIME, DIRECTED SOLD: 04/16/2020 [facility] 50 mg 04/15/2020 12:00:00 AM EST tablet 120 TAKE ONE TABLET BY MOUTH EVERY MORNING AND TAKE THREE TABLETS BY MOUTH AT BEDTIME, DIRECTED TAKE ONE TABLET BY MOUTH EVERY MORNING AND TAKE THREE TABLETS BY MOUTH AT BEDTIME, DIRECTED SOLD: 06/16/2020 [facility] 50 mg 04/15/2020 12:00:00 AM EST tablet 120 TAKE ONE TABLET BY MOUTH EVERY MORNING AND TAKE THREE TABLETS BY MOUTH AT BEDTIME, DIRECTED TAKE ONE TABLET BY MOUTH EVERY MORNING AND TAKE THREE TABLETS BY MOUTH AT BEDTIME, DIRECTED SOLD: 07/14/2020 [facility] 50 mg 04/15/2020 12:00:00 AM EST tablet 120 TAKE ONE TABLET BY MOUTH EVERY MORNING AND TAKE THREE TABLETS BY MOUTH AT BEDTIME, DIRECTED TAKE ONE TABLET BY MOUTH EVERY MORNING AND TAKE THREE TABLETS BY MOUTH AT BEDTIME, DIRECTED SOLD: 05/19/2020 [facility] mesalamine 1000 MG Rectal Suppository Mesalamine 1000 MG Mes alamine 1000 MG 04/12/2020 12:00:00 AM EST 1.0 {suppository_at_bedtime} active Mesalamine 1000 MG eCW1 ([facility]) mesalamine 1000 MG Rectal Suppository Mesalamine 1000 MG Mes alamine 1000 MG 04/12/2020 12:00:00 AM EST 1.0 {suppository_at_bedtime} active Mesalamine 1000 MG eCW1 ([facility]) mesalamine 1000 MG Rectal Suppository Mesalamine 1000 MG Mes alamine 1000 MG 04/12/2020 12:00:00 AM EST 1.0 {suppository_at_bedtime} active Mesalamine 1000 MG eCW1 ([facility]) mesalamine 1000 MG Rectal Suppository Mesalamine 1000 MG Mes alamine 1000 MG 04/12/2020 12:00:00 AM EST 1.0 {suppository_at_bedtime} suspended Mesalamine 1000 MG eCW1 ([facility]) 10 gram/15 mL 04/12/2020 12:00:00 AM EST solution 1419 TAKE 15ML BY MOUTH THREE TIMES A DAY TAKE 15ML BY MOUTH THREE TIMES A DAY SOLD: 08/28/2020 [facility] mesalamine 1000 MG Rectal Suppository Mesalamine 1000 MG Mes alamine 1000 MG 04/12/2020 12:00:00 AM EST 1.0 {suppository_at_bedtime} active Mesalamine 1000 MG eCW1 ([facility]) Mometasone Furoate 50 MCG/ACT Mometasone Furoate 50 MCG/ACT 04/12/2020 12:00:00 AM EST 2.0 {sprays_in_each_nostril} active Mometasone Furoate 50 MCG/ACT eCW1 ([facility]) mesalamine 1000 MG Rectal Suppository Mesalamine 1000 MG Mes alamine 1000 MG 04/12/2020 12:00:00 AM EST 1.0 {suppository_at_bedtime} active Mesalamine 1000 MG eCW1 ([facility]) 12 % 04/12/2020 12:00:00 AM EST cream 140 APPLY 1 APPLICATION TO FEET TWICE A DAY APPLY 1 APPLICATION TO FEET TWICE A DAY SOLD: 07/03/2020 [facility] mesalamine 1000 MG Rectal Suppository Mesalamine 1000 MG Mes alamine 1000 MG 04/12/2020 12:00:00 AM EST 1.0 {suppository_at_bedtime} active Mesalamine 1000 MG eCW1 ([facility]) 12 % 04/12/2020 12:00:00 AM EST cream 140 APPLY 1 APPLICATION TO FEET TWICE A DAY APPLY 1 APPLICATION TO FEET TWICE A DAY SOLD: 05/10/2020 [facility] 1,000 mg 04/12/2020 12:00:00 AM EST suppository 30 INSERT ONE SUPPOSITORY RECTALLY AT BEDTIME INSERT ONE SUPPOSITORY RECTALLY AT BEDTIME SOLD: 04/12/2020 [facility] Doxycycline Monohydrate 100 MG Oral Capsule Doxycycline Sebastian hydrate 100 MG 04/12/2020 12:00:00 AM EST 1.0 {capsule} active Doxycycline Monohydrate 100 MG eCW1 ([facility]) Doxycycline Monohydrate 100 MG Oral Capsule Doxycycline Sebastian hydrate 100 MG 04/12/2020 12:00:00 AM EST 1.0 {capsule} suspend ed Doxycycline Monohydrate 100 MG eCW1 ([facility]) Mometasone Furoate 50 MCG/ACT Mometasone Furoate 50 MCG/ACT 04/12/2020 12:00:00 AM EST 2.0 {sprays_in_each_nostril} active Mometasone Furoate 50 MCG/ACT eCW1 ([facility]) mesalamine 1000 MG Rectal Suppository Mesalamine 1000 MG Mes alamine 1000 MG 04/12/2020 12:00:00 AM EST 1.0 {suppository_at_bedtime} suspended Mesalamine 1000 MG eCW1 ([facility]) Mometasone Furoate 50 MCG/ACT Mometasone Furoate 50 MCG/ACT 04/12/2020 12:00:00 AM EST 2.0 {sprays_in_each_nostril} active Mometasone Furoate 50 MCG/ACT eCW1 ([facility]) mesalamine 1000 MG Rectal Suppository Mesalamine 1000 MG Mes alamine 1000 MG 04/12/2020 12:00:00 AM EST 1.0 {suppository_at_bedtime} active Mesalamine 1000 MG eCW1 ([facility]) mesalamine 1000 MG Rectal Suppository Mesalamine 1000 MG Mes alamine 1000 MG 04/12/2020 12:00:00 AM EST 1.0 {suppository_at_bedtime} active Mesalamine 1000 MG eCW1 ([facility]) mesalamine 1000 MG Rectal Suppository Mesalamine 1000 MG Mes alamine 1000 MG 04/12/2020 12:00:00 AM EST 1.0 {suppository_at_bedtime} active Mesalamine 1000 MG eCW1 ([facility]) mesalamine 1000 MG Rectal Suppository Mesalamine 1000 MG Mes alamine 1000 MG 04/12/2020 12:00:00 AM EST 1.0 {suppository_at_bedtime} active Mesalamine 1000 MG eCW1 ([facility]) mesalamine 1000 MG Rectal Suppository Mesalamine 1000 MG Mes alamine 1000 MG 04/12/2020 12:00:00 AM EST 1.0 {suppository_at_bedtime} active Mesalamine 1000 MG eCW1 ([facility]) Mometasone Furoate 50 MCG/ACT Mometasone Furoate 50 MCG/ACT 04/12/2020 12:00:00 AM EST 2.0 {sprays_in_each_nostril} active Mometasone Furoate 50 MCG/ACT eCW1 ([facility]) mesalamine 1000 MG Rectal Suppository Mesalamine 1000 MG Mes alamine 1000 MG 04/12/2020 12:00:00 AM EST 1.0 {suppository_at_bedtime} suspended Mesalamine 1000 MG eCW1 ([facility]) mesalamine 1000 MG Rectal Suppository Mesalamine 1000 MG Mes alamine 1000 MG 04/12/2020 12:00:00 AM EST 1.0 {suppository_at_bedtime} active Mesalamine 1000 MG eCW1 ([facility]) Mometasone Furoate 50 MCG/ACT Mometasone Furoate 50 MCG/ACT 04/12/2020 12:00:00 AM EST 2.0 {sprays_in_each_nostril} active Mometasone Furoate 50 MCG/ACT eCW1 ([facility]) mesalamine 1000 MG Rectal Suppository Mesalamine 1000 MG Mes alamine 1000 MG 04/12/2020 12:00:00 AM EST 1.0 {suppository_at_bedtime} active Mesalamine 1000 MG eCW1 ([facility]) mesalamine 1000 MG Rectal Suppository Mesalamine 1000 MG Mes alamine 1000 MG 04/12/2020 12:00:00 AM EST 1.0 {suppository_at_bedtime} suspended eCW1 ([facility]) mesalamine 1000 MG Rectal Suppository Mesalamine 1000 MG Mes alamine 1000 MG 04/12/2020 12:00:00 AM EST 1.0 {suppository_at_bedtime} active Mesalamine 1000 MG eCW1 ([facility]) mesalamine 1000 MG Rectal Suppository Mesalamine 1000 MG Mes alamine 1000 MG 04/12/2020 12:00:00 AM EST 1.0 {suppository_at_bedtime} active Mesalamine 1000 MG eCW1 ([facility]) Mometasone Furoate 50 MCG/ACT Mometasone Furoate 50 MCG/ACT 04/12/2020 12:00:00 AM EST 2.0 {sprays_in_each_nostril} active Mometasone Furoate 50 MCG/ACT eCW1 ([facility]) Doxycycline Monohydrate 100 MG Oral Capsule Doxycycline Sebastian hydrate 100 MG 04/12/2020 12:00:00 AM EST 1.0 {capsule} active Doxycycline Monohydrate 100 MG eCW1 ([facility]) mesalamine 1000 MG Rectal Suppository Mesalamine 1000 MG Mes alamine 1000 MG 04/12/2020 12:00:00 AM EST 1.0 {suppository_at_bedtime} active eCW1 ([facility]) 10 gram/15 mL 04/12/2020 12:00:00 AM EST solution 1419 TAKE 15ML BY MOUTH THREE TIMES A DAY TAKE 15ML BY MOUTH THREE TIMES A DAY SOLD: 04/12/2020 [facility] mesalamine 1000 MG Rectal Suppository Mesalamine 1000 MG Mes alamine 1000 MG 04/12/2020 12:00:00 AM EST 1.0 {suppository_at_bedtime} active Mesalamine 1000 MG eCW1 ([facility]) 1,000 mg 04/12/2020 12:00:00 AM EST suppository 30 INSERT ONE SUPPOSITORY RECTALLY AT BEDTIME INSERT ONE SUPPOSITORY RECTALLY AT BEDTIME SOLD: 05/10/2020 [facility] Mometasone Furoate 50 MCG/ACT Mometasone Furoate 50 MCG/ACT 04/12/2020 12:00:00 AM EST 2.0 {sprays_in_each_nostril} active Mometasone Furoate 50 MCG/ACT eCW1 ([facility]) mesalamine 1000 MG Rectal Suppository Mesalamine 1000 MG Mes alamine 1000 MG 04/12/2020 12:00:00 AM EST 1.0 {suppository_at_bedtime} active Mesalamine 1000 MG eCW1 ([facility]) mesalamine 1000 MG Rectal Suppository Mesalamine 1000 MG Mes alamine 1000 MG 04/12/2020 12:00:00 AM EST 1.0 {suppository_at_bedtime} suspended Mesalamine 1000 MG eCW1 ([facility]) 10 gram/15 mL 04/12/2020 12:00:00 AM EST solution 1419 TAKE 15ML BY MOUTH THREE TIMES A DAY TAKE 15ML BY MOUTH THREE TIMES A DAY SOLD: 05/10/2020 [facility] Mometasone Furoate 50 MCG/ACT Mometasone Furoate 50 MCG/ACT 04/12/2020 12:00:00 AM EST 2.0 {sprays_in_each_nostril} active Mometasone Furoate 50 MCG/ACT eCW1 ([facility]) mesalamine 1000 MG Rectal Suppository Mesalamine 1000 MG Mes alamine 1000 MG 04/12/2020 12:00:00 AM EST 1.0 {suppository_at_bedtime} active Mesalamine 1000 MG eCW1 ([facility]) mesalamine 1000 MG Rectal Suppository Mesalamine 1000 MG Mes alamine 1000 MG 04/12/2020 12:00:00 AM EST 1.0 {suppository_at_bedtime} active Mesalamine 1000 MG eCW1 ([facility]) mesalamine 1000 MG Rectal Suppository Mesalamine 1000 MG Mes alamine 1000 MG 04/12/2020 12:00:00 AM EST 1.0 {suppository_at_bedtime} active Mesalamine 1000 MG eCW1 ([facility]) mesalamine 1000 MG Rectal Suppository Mesalamine 1000 MG Mes alamine 1000 MG 04/12/2020 12:00:00 AM EST 1.0 {suppository_at_bedtime} active Mesalamine 1000 MG eCW1 ([facility]) mesalamine 1000 MG Rectal Suppository Mesalamine 1000 MG Mes alamine 1000 MG 04/12/2020 12:00:00 AM EST 1.0 {suppository_at_bedtime} active Mesalamine 1000 MG eCW1 ([facility]) Doxycycline Monohydrate 100 MG Oral Capsule Doxycycline Sebastian hydrate 100 MG 04/12/2020 12:00:00 AM EST 1.0 {capsule} active Doxycycline Monohydrate 100 MG eCW1 ([facility]) mesalamine 1000 MG Rectal Suppository Mesalamine 1000 MG Mes alamine 1000 MG 04/12/2020 12:00:00 AM EST 1.0 {suppository_at_bedtime} active Mesalamine 1000 MG eCW1 ([facility]) mesalamine 1000 MG Rectal Suppository Mesalamine 1000 MG Mes alamine 1000 MG 04/12/2020 12:00:00 AM EST 1.0 {suppository_at_bedtime} active Mesalamine 1000 MG eCW1 ([facility]) mesalamine 1000 MG Rectal Suppository Mesalamine 1000 MG Mes alamine 1000 MG 04/12/2020 12:00:00 AM EST 1.0 {suppository_at_bedtime} active Mesalamine 1000 MG eCW1 ([facility]) mesalamine 1000 MG Rectal Suppository Mesalamine 1000 MG Mes alamine 1000 MG 04/12/2020 12:00:00 AM EST 1.0 {suppository_at_bedtime} active Mesalamine 1000 MG eCW1 ([facility]) mesalamine 1000 MG Rectal Suppository Mesalamine 1000 MG Mes alamine 1000 MG 04/12/2020 12:00:00 AM EST 1.0 {suppository_at_bedtime} active Mesalamine 1000 MG eCW1 ([facility]) mesalamine 1000 MG Rectal Suppository Mesalamine 1000 MG Mes alamine 1000 MG 04/12/2020 12:00:00 AM EST 1.0 {suppository_at_bedtime} active Mesalamine 1000 MG eCW1 ([facility]) mesalamine 1000 MG Rectal Suppository Mesalamine 1000 MG Mes alamine 1000 MG 04/12/2020 12:00:00 AM EST 1.0 {suppository_at_bedtime} active Mesalamine 1000 MG eCW1 ([facility]) Mometasone Furoate 50 MCG/ACT Mometasone Furoate 50 MCG/ACT 04/12/2020 12:00:00 AM EST 2.0 {sprays_in_each_nostril} active Mometasone Furoate 50 MCG/ACT eCW1 ([facility]) Mometasone Furoate 50 MCG/ACT Mometasone Furoate 50 MCG/ACT 04/12/2020 12:00:00 AM EST 2.0 {sprays_in_each_nostril} active Mometasone Furoate 50 MCG/ACT eCW1 ([facility]) mesalamine 1000 MG Rectal Suppository Mesalamine 1000 MG Mes alamine 1000 MG 04/12/2020 12:00:00 AM EST 1.0 {suppository_at_bedtime} suspended Mesalamine 1000 MG eCW1 ([facility]) mesalamine 1000 MG Rectal Suppository Mesalamine 1000 MG Mes alamine 1000 MG 04/12/2020 12:00:00 AM EST 1.0 {suppository_at_bedtime} active Mesalamine 1000 MG eCW1 ([facility]) Doxycycline Monohydrate 100 MG Oral Capsule Doxycycline Sebastian hydrate 100 MG 04/12/2020 12:00:00 AM EST 1.0 {capsule} active Doxycycline Monohydrate 100 MG eCW1 ([facility]) 12 % 04/12/2020 12:00:00 AM EST cream 140 APPLY 1 APPLICATION TO FEET TWICE A DAY APPLY 1 APPLICATION TO FEET TWICE A DAY SOLD: 07/31/2020 [facility] mesalamine 1000 MG Rectal Suppository Mesalamine 1000 MG Mes alamine 1000 MG 04/12/2020 12:00:00 AM EST 1.0 {suppository_at_bedtime} active Mesalamine 1000 MG eCW1 ([facility]) mesalamine 1000 MG Rectal Suppository Mesalamine 1000 MG Mes alamine 1000 MG 04/12/2020 12:00:00 AM EST 1.0 {suppository_at_bedtime} active Mesalamine 1000 MG eCW1 ([facility]) mesalamine 1000 MG Rectal Suppository Mesalamine 1000 MG Mes alamine 1000 MG 04/12/2020 12:00:00 AM EST 1.0 {suppository_at_bedtime} active Mesalamine 1000 MG eCW1 ([facility]) Mometasone Furoate 50 MCG/ACT Mometasone Furoate 50 MCG/ACT 04/12/2020 12:00:00 AM EST 2.0 {sprays_in_each_nostril} active Mometasone Furoate 50 MCG/ACT eCW1 ([facility]) mesalamine 1000 MG Rectal Suppository Mesalamine 1000 MG Mes alamine 1000 MG 04/12/2020 12:00:00 AM EST 1.0 {suppository_at_bedtime} active Mesalamine 1000 MG eCW1 ([facility]) mesalamine 1000 MG Rectal Suppository Mesalamine 1000 MG Mes alamine 1000 MG 04/12/2020 12:00:00 AM EST 1.0 {suppository_at_bedtime} suspended Mesalamine 1000 MG eCW1 ([facility]) mesalamine 1000 MG Rectal Suppository Mesalamine 1000 MG Mes alamine 1000 MG 04/12/2020 12:00:00 AM EST 1.0 {suppository_at_bedtime} active Mesalamine 1000 MG eCW1 ([facility]) Mometasone Furoate 50 MCG/ACT Mometasone Furoate 50 MCG/ACT 04/12/2020 12:00:00 AM EST 2.0 {sprays_in_each_nostril} active Mometasone Furoate 50 MCG/ACT eCW1 ([facility]) mesalamine 1000 MG Rectal Suppository Mesalamine 1000 MG Mes alamine 1000 MG 04/12/2020 12:00:00 AM EST 1.0 {suppository_at_bedtime} active Mesalamine 1000 MG eCW1 ([facility]) mesalamine 1000 MG Rectal Suppository Mesalamine 1000 MG Mes alamine 1000 MG 04/12/2020 12:00:00 AM EST 1.0 {suppository_at_bedtime} active Mesalamine 1000 MG eCW1 ([facility]) Mometasone Furoate 50 MCG/ACT Mometasone Furoate 50 MCG/ACT 04/12/2020 12:00:00 AM EST 2.0 {sprays_in_each_nostril} active Mometasone Furoate 50 MCG/ACT eCW1 ([facility]) Mometasone Furoate 50 MCG/ACT Mometasone Furoate 50 MCG/ACT 04/12/2020 12:00:00 AM EST 2.0 {sprays_in_each_nostril} active Mometasone Furoate 50 MCG/ACT eCW1 ([facility]) mesalamine 1000 MG Rectal Suppository Mesalamine 1000 MG Mes alamine 1000 MG 04/12/2020 12:00:00 AM EST 1.0 {suppository_at_bedtime} active Mesalamine 1000 MG eCW1 ([facility]) mesalamine 1000 MG Rectal Suppository Mesalamine 1000 MG Mes alamine 1000 MG 04/12/2020 12:00:00 AM EST 1.0 {suppository_at_bedtime} active Mesalamine 1000 MG eCW1 ([facility]) mesalamine 1000 MG Rectal Suppository Mesalamine 1000 MG Mes alamine 1000 MG 04/12/2020 12:00:00 AM EST 1.0 {suppository_at_bedtime} active Mesalamine 1000 MG eCW1 ([facility]) mesalamine 1000 MG Rectal Suppository Mesalamine 1000 MG Mes alamine 1000 MG 04/12/2020 12:00:00 AM EST 1.0 {suppository_at_bedtime} active Mesalamine 1000 MG eCW1 ([facility]) mesalamine 1000 MG Rectal Suppository Mesalamine 1000 MG Mes alamine 1000 MG 04/12/2020 12:00:00 AM EST 1.0 {suppository_at_bedtime} active Mesalamine 1000 MG eCW1 ([facility]) mesalamine 1000 MG Rectal Suppository Mesalamine 1000 MG Mes alamine 1000 MG 04/12/2020 12:00:00 AM EST 1.0 {suppository_at_bedtime} active Mesalamine 1000 MG eCW1 ([facility]) mesalamine 1000 MG Rectal Suppository Mesalamine 1000 MG Mes alamine 1000 MG 04/12/2020 12:00:00 AM EST 1.0 {suppository_at_bedtime} active Mesalamine 1000 MG eCW1 ([facility]) mesalamine 1000 MG Rectal Suppository Mesalamine 1000 MG Mes alamine 1000 MG 04/12/2020 12:00:00 AM EST 1.0 {suppository_at_bedtime} active Mesalamine 1000 MG eCW1 ([facility]) Mometasone Furoate 50 MCG/ACT Mometasone Furoate 50 MCG/ACT 04/12/2020 12:00:00 AM EST 2.0 {sprays_in_each_nostril} active Mometasone Furoate 50 MCG/ACT eCW1 ([facility]) Mometasone Furoate 50 MCG/ACT Mometasone Furoate 50 MCG/ACT 04/12/2020 12:00:00 AM EST 2.0 {sprays_in_each_nostril} active Mometasone Furoate 50 MCG/ACT eCW1 ([facility]) Doxycycline Monohydrate 100 MG Oral Capsule Doxycycline Sebastian hydrate 100 MG 04/12/2020 12:00:00 AM EST 1.0 {capsule} suspend ed Doxycycline Monohydrate 100 MG eCW1 ([facility]) Mometasone Furoate 50 MCG/ACT Mometasone Furoate 50 MCG/ACT 04/12/2020 12:00:00 AM EST 2.0 {sprays_in_each_nostril} active Mometasone Furoate 50 MCG/ACT eCW1 ([facility]) mesalamine 1000 MG Rectal Suppository Mesalamine 1000 MG Mes alamine 1000 MG 04/12/2020 12:00:00 AM EST 1.0 {suppository_at_bedtime} active Mesalamine 1000 MG eCW1 ([facility]) Mometasone Furoate 50 MCG/ACT Mometasone Furoate 50 MCG/ACT 04/12/2020 12:00:00 AM EST 2.0 {sprays_in_each_nostril} active Mometasone Furoate 50 MCG/ACT eCW1 ([facility]) mesalamine 1000 MG Rectal Suppository Mesalamine 1000 MG Mes alamine 1000 MG 04/12/2020 12:00:00 AM EST 1.0 {suppository_at_bedtime} active Mesalamine 1000 MG eCW1 ([facility]) Mometasone Furoate 50 MCG/ACT Mometasone Furoate 50 MCG/ACT 04/12/2020 12:00:00 AM EST 2.0 {sprays_in_each_nostril} active Mometasone Furoate 50 MCG/ACT eCW1 ([facility]) mesalamine 1000 MG Rectal Suppository Mesalamine 1000 MG Mes alamine 1000 MG 04/12/2020 12:00:00 AM EST 1.0 {suppository_at_bedtime} active Mesalamine 1000 MG eCW1 ([facility]) Mometasone Furoate 50 MCG/ACT Mometasone Furoate 50 MCG/ACT 04/12/2020 12:00:00 AM EST 2.0 {sprays_in_each_nostril} active Mometasone Furoate 50 MCG/ACT eCW1 ([facility]) 10 gram/15 mL 04/12/2020 12:00:00 AM EST solution 1419 TAKE 15ML BY MOUTH THREE TIMES A DAY TAKE 15ML BY MOUTH THREE TIMES A DAY SOLD: 07/31/2020 [facility] Mometasone Furoate 50 MCG/ACT Mometasone Furoate 50 MCG/ACT 04/12/2020 12:00:00 AM EST 2.0 {sprays_in_each_nostril} active Mometasone Furoate 50 MCG/ACT eCW1 ([facility]) mesalamine 1000 MG Rectal Suppository Mesalamine 1000 MG Mes alamine 1000 MG 04/12/2020 12:00:00 AM EST 1.0 {suppository_at_bedtime} active Mesalamine 1000 MG eCW1 ([facility]) mesalamine 1000 MG Rectal Suppository Mesalamine 1000 MG Mes alamine 1000 MG 04/12/2020 12:00:00 AM EST 1.0 {suppository_at_bedtime} active Mesalamine 1000 MG eCW1 ([facility]) mesalamine 1000 MG Rectal Suppository Mesalamine 1000 MG Mes alamine 1000 MG 04/12/2020 12:00:00 AM EST 1.0 {suppository_at_bedtime} active Mesalamine 1000 MG eCW1 ([facility]) mesalamine 1000 MG Rectal Suppository Mesalamine 1000 MG Mes alamine 1000 MG 04/12/2020 12:00:00 AM EST 1.0 {suppository_at_bedtime} active Mesalamine 1000 MG eCW1 ([facility]) 1,000 mg 04/12/2020 12:00:00 AM EST suppository 30 INSERT ONE SUPPOSITORY RECTALLY AT BEDTIME INSERT ONE SUPPOSITORY RECTALLY AT BEDTIME SOLD: 06/06/2020 [facility] mesalamine 1000 MG Rectal Suppository Mesalamine 1000 MG Mes alamine 1000 MG 04/12/2020 12:00:00 AM EST 1.0 {suppository_at_bedtime} active Mesalamine 1000 MG eCW1 ([facility]) mesalamine 1000 MG Rectal Suppository Mesalamine 1000 MG Mes alamine 1000 MG 04/12/2020 12:00:00 AM EST 1.0 {suppository_at_bedtime} active Mesalamine 1000 MG eCW1 ([facility]) mesalamine 1000 MG Rectal Suppository Mesalamine 1000 MG Mes alamine 1000 MG 04/12/2020 12:00:00 AM EST 1.0 {suppository_at_bedtime} active Mesalamine 1000 MG eCW1 ([facility]) mesalamine 1000 MG Rectal Suppository Mesalamine 1000 MG Mes alamine 1000 MG 04/12/2020 12:00:00 AM EST 1.0 {suppository_at_bedtime} active Mesalamine 1000 MG eCW1 ([facility]) mesalamine 1000 MG Rectal Suppository Mesalamine 1000 MG Mes alamine 1000 MG 04/12/2020 12:00:00 AM EST 1.0 {suppository_at_bedtime} suspended eCW1 ([facility]) 12 % 04/12/2020 12:00:00 AM EST cream 140 APPLY 1 APPLICATION TO FEET TWICE A DAY APPLY 1 APPLICATION TO FEET TWICE A DAY SOLD: 04/12/2020 [facility] Doxycycline Monohydrate 100 MG Oral Capsule Doxycycline Sebastian hydrate 100 MG 04/12/2020 12:00:00 AM EST 1.0 {capsule} active Doxycycline Monohydrate 100 MG eCW1 ([facility]) mesalamine 1000 MG Rectal Suppository Mesalamine 1000 MG Mes alamine 1000 MG 04/12/2020 12:00:00 AM EST 1.0 {suppository_at_bedtime} active Mesalamine 1000 MG eCW1 ([facility]) mesalamine 1000 MG Rectal Suppository Mesalamine 1000 MG Mes alamine 1000 MG 04/12/2020 12:00:00 AM EST 1.0 {suppository_at_bedtime} active Mesalamine 1000 MG eCW1 ([facility]) 100 mg 04/12/2020 12:00:00 AM EST capsule 20 TAKE ONE CAPSULE BY MOUTH TWICE A DAY FOR 10 DAYS TAKE ONE CAPSULE BY MOUTH TWICE A DAY FOR 10 DAYS SOLD : 04/12/2020 [facility] mesalamine 1000 MG Rectal Suppository Mesalamine 1000 MG Mes alamine 1000 MG 04/12/2020 12:00:00 AM EST 1.0 {suppository_at_bedtime} active Mesalamine 1000 MG eCW1 ([facility]) mesalamine 1000 MG Rectal Suppository Mesalamine 1000 MG Mes alamine 1000 MG 04/12/2020 12:00:00 AM EST 1.0 {suppository_at_bedtime} active Mesalamine 1000 MG eCW1 ([facility]) Doxycycline Monohydrate 100 MG Oral Capsule Doxycycline Sebastian hydrate 100 MG 04/12/2020 12:00:00 AM EST 1.0 {capsule} active Doxycycline Monohydrate 100 MG eCW1 ([facility]) Mometasone Furoate 50 MCG/ACT Mometasone Furoate 50 MCG/ACT 04/12/2020 12:00:00 AM EST 2.0 {sprays_in_each_nostril} active Mometasone Furoate 50 MCG/ACT eCW1 ([facility]) Mometasone Furoate 50 MCG/ACT Mometasone Furoate 50 MCG/ACT 04/12/2020 12:00:00 AM EST 2.0 {sprays_in_each_nostril} active Mometasone Furoate 50 MCG/ACT eCW1 ([facility]) mesalamine 1000 MG Rectal Suppository Mesalamine 1000 MG Mes alamine 1000 MG 04/12/2020 12:00:00 AM EST 1.0 {suppository_at_bedtime} active Mesalamine 1000 MG eCW1 ([facility]) Doxycycline Monohydrate 100 MG Oral Capsule Doxycycline Sebastian hydrate 100 MG 04/12/2020 12:00:00 AM EST 1.0 {capsule} suspend ed Doxycycline Monohydrate 100 MG eCW1 ([facility]) mesalamine 1000 MG Rectal Suppository Mesalamine 1000 MG Mes alamine 1000 MG 04/12/2020 12:00:00 AM EST 1.0 {suppository_at_bedtime} active Mesalamine 1000 MG eCW1 ([facility]) mesalamine 1000 MG Rectal Suppository Mesalamine 1000 MG Mes alamine 1000 MG 04/12/2020 12:00:00 AM EST 1.0 {suppository_at_bedtime} active Mesalamine 1000 MG eCW1 ([facility]) Doxycycline Monohydrate 100 MG Oral Capsule Doxycycline Sebastian hydrate 100 MG 04/12/2020 12:00:00 AM EST 1.0 {capsule} active Doxycycline Monohydrate 100 MG eCW1 ([facility]) mesalamine 1000 MG Rectal Suppository Mesalamine 1000 MG Mes alamine 1000 MG 04/12/2020 12:00:00 AM EST 1.0 {suppository_at_bedtime} active Mesalamine 1000 MG eCW1 ([facility]) 12 % 04/12/2020 12:00:00 AM EST cream 140 APPLY 1 APPLICATION TO FEET TWICE A DAY APPLY 1 APPLICATION TO FEET TWICE A DAY SOLD: 08/28/2020 [facility] Doxycycline Monohydrate 100 MG Oral Capsule Doxycycline Sebastian hydrate 100 MG 04/12/2020 12:00:00 AM EST 1.0 {capsule} active Doxycycline Monohydrate 100 MG eCW1 ([facility]) mesalamine 1000 MG Rectal Suppository Mesalamine 1000 MG Mes alamine 1000 MG 04/12/2020 12:00:00 AM EST 1.0 {suppository_at_bedtime} active Mesalamine 1000 MG eCW1 ([facility]) mesalamine 1000 MG Rectal Suppository Mesalamine 1000 MG Mes alamine 1000 MG 04/12/2020 12:00:00 AM EST 1.0 {suppository_at_bedtime} active Mesalamine 1000 MG eCW1 ([facility]) mesalamine 1000 MG Rectal Suppository Mesalamine 1000 MG Mes alamine 1000 MG 04/12/2020 12:00:00 AM EST 1.0 {suppository_at_bedtime} active Mesalamine 1000 MG eCW1 ([facility]) Mometasone Furoate 50 MCG/ACT Mometasone Furoate 50 MCG/ACT 04/12/2020 12:00:00 AM EST 2.0 {sprays_in_each_nostril} active Mometasone Furoate 50 MCG/ACT eCW1 ([facility]) mesalamine 1000 MG Rectal Suppository Mesalamine 1000 MG Mes alamine 1000 MG 04/12/2020 12:00:00 AM EST 1.0 {suppository_at_bedtime} active Mesalamine 1000 MG eCW1 ([facility]) mesalamine 1000 MG Rectal Suppository Mesalamine 1000 MG Mes alamine 1000 MG 04/12/2020 12:00:00 AM EST 1.0 {suppository_at_bedtime} suspended Mesalamine 1000 MG eCW1 ([facility]) Mometasone Furoate 50 MCG/ACT Mometasone Furoate 50 MCG/ACT 04/12/2020 12:00:00 AM EST 2.0 {sprays_in_each_nostril} active Mometasone Furoate 50 MCG/ACT eCW1 ([facility]) mesalamine 1000 MG Rectal Suppository Mesalamine 1000 MG Mes alamine 1000 MG 04/12/2020 12:00:00 AM EST 1.0 {suppository_at_bedtime} active Mesalamine 1000 MG eCW1 ([facility]) mesalamine 1000 MG Rectal Suppository Mesalamine 1000 MG Mes alamine 1000 MG 04/12/2020 12:00:00 AM EST 1.0 {suppository_at_bedtime} active Mesalamine 1000 MG eCW1 ([facility]) mesalamine 1000 MG Rectal Suppository Mesalamine 1000 MG Mes alamine 1000 MG 04/12/2020 12:00:00 AM EST 1.0 {suppository_at_bedtime} active Mesalamine 1000 MG eCW1 ([facility]) mesalamine 1000 MG Rectal Suppository Mesalamine 1000 MG Mes alamine 1000 MG 04/12/2020 12:00:00 AM EST 1.0 {suppository_at_bedtime} active Mesalamine 1000 MG eCW1 ([facility]) Mometasone Furoate 50 MCG/ACT Mometasone Furoate 50 MCG/ACT 04/12/2020 12:00:00 AM EST 2.0 {sprays_in_each_nostril} active Mometasone Furoate 50 MCG/ACT eCW1 ([facility]) mesalamine 1000 MG Rectal Suppository Mesalamine 1000 MG Mes alamine 1000 MG 04/12/2020 12:00:00 AM EST 1.0 {suppository_at_bedtime} active Mesalamine 1000 MG eCW1 ([facility]) mesalamine 1000 MG Rectal Suppository Mesalamine 1000 MG Mes alamine 1000 MG 04/12/2020 12:00:00 AM EST 1.0 {suppository_at_bedtime} active Mesalamine 1000 MG eCW1 ([facility]) Mometasone Furoate 50 MCG/ACT Mometasone Furoate 50 MCG/ACT 04/12/2020 12:00:00 AM EST 2.0 {sprays_in_each_nostril} active Mometasone Furoate 50 MCG/ACT eCW1 ([facility]) mesalamine 1000 MG Rectal Suppository Mesalamine 1000 MG Mes alamine 1000 MG 04/12/2020 12:00:00 AM EST 1.0 {suppository_at_bedtime} suspended Mesalamine 1000 MG eCW1 ([facility]) mesalamine 1000 MG Rectal Suppository Mesalamine 1000 MG Mes alamine 1000 MG 04/12/2020 12:00:00 AM EST 1.0 {suppository_at_bedtime} active Mesalamine 1000 MG eCW1 ([facility]) Mometasone Furoate 50 MCG/ACT Mometasone Furoate 50 MCG/ACT 04/12/2020 12:00:00 AM EST 2.0 {sprays_in_each_nostril} active Mometasone Furoate 50 MCG/ACT eCW1 ([facility]) Mometasone Furoate 50 MCG/ACT Mometasone Furoate 50 MCG/ACT 04/12/2020 12:00:00 AM EST 2.0 {sprays_in_each_nostril} active Mometasone Furoate 50 MCG/ACT eCW1 ([facility]) 10 gram/15 mL 04/12/2020 12:00:00 AM EST solution 1419 TAKE 15ML BY MOUTH THREE TIMES A DAY TAKE 15ML BY MOUTH THREE TIMES A DAY SOLD: 07/03/2020 [facility] Doxycycline Monohydrate 100 MG Oral Capsule Doxycycline Sebastian hydrate 100 MG 04/12/2020 12:00:00 AM EST 1.0 {capsule} active Doxycycline Monohydrate 100 MG eCW1 ([facility]) mesalamine 1000 MG Rectal Suppository Mesalamine 1000 MG Mes alamine 1000 MG 04/12/2020 12:00:00 AM EST 1.0 {suppository_at_bedtime} active Mesalamine 1000 MG eCW1 ([facility]) mesalamine 1000 MG Rectal Suppository Mesalamine 1000 MG Mes alamine 1000 MG 04/12/2020 12:00:00 AM EST 1.0 {suppository_at_bedtime} active Mesalamine 1000 MG eCW1 ([facility]) 1,000 mg 04/12/2020 12:00:00 AM EST suppository 30 INSERT ONE SUPPOSITORY RECTALLY AT BEDTIME INSERT ONE SUPPOSITORY RECTALLY AT BEDTIME SOLD: 07/31/2020 [facility] Mometasone Furoate 50 MCG/ACT Mometasone Furoate 50 MCG/ACT 04/12/2020 12:00:00 AM EST 2.0 {sprays_in_each_nostril} active Mometasone Furoate 50 MCG/ACT eCW1 ([facility]) mesalamine 1000 MG Rectal Suppository Mesalamine 1000 MG Mes alamine 1000 MG 04/12/2020 12:00:00 AM EST 1.0 {suppository_at_bedtime} active Mesalamine 1000 MG eCW1 ([facility]) mesalamine 1000 MG Rectal Suppository Mesalamine 1000 MG Mes alamine 1000 MG 04/12/2020 12:00:00 AM EST 1.0 {suppository_at_bedtime} active Mesalamine 1000 MG eCW1 ([facility]) mesalamine 1000 MG Rectal Suppository Mesalamine 1000 MG Mes alamine 1000 MG 04/12/2020 12:00:00 AM EST 1.0 {suppository_at_bedtime} active Mesalamine 1000 MG eCW1 ([facility]) 1,000 mg 04/12/2020 12:00:00 AM EST suppository 30 INSERT ONE SUPPOSITORY RECTALLY AT BEDTIME INSERT ONE SUPPOSITORY RECTALLY AT BEDTIME SOLD: 07/03/2020 [facility] mesalamine 1000 MG Rectal Suppository Mesalamine 1000 MG Mes alamine 1000 MG 04/12/2020 12:00:00 AM EST 1.0 {suppository_at_bedtime} active Mesalamine 1000 MG eCW1 ([facility]) Mometasone Furoate 50 MCG/ACT Mometasone Furoate 50 MCG/ACT 04/12/2020 12:00:00 AM EST 2.0 {sprays_in_each_nostril} active Mometasone Furoate 50 MCG/ACT eCW1 ([facility]) Mometasone Furoate 50 MCG/ACT Mometasone Furoate 50 MCG/ACT 04/12/2020 12:00:00 AM EST 2.0 {sprays_in_each_nostril} active Mometasone Furoate 50 MCG/ACT eCW1 ([facility]) Mometasone Furoate 50 MCG/ACT Mometasone Furoate 50 MCG/ACT 04/12/2020 12:00:00 AM EST 2.0 {sprays_in_each_nostril} active Mometasone Furoate 50 MCG/ACT eCW1 ([facility]) mesalamine 1000 MG Rectal Suppository Mesalamine 1000 MG Mes alamine 1000 MG 04/12/2020 12:00:00 AM EST 1.0 {suppository_at_bedtime} suspended Mesalamine 1000 MG eCW1 ([facility]) Mometasone Furoate 50 MCG/ACT Mometasone Furoate 50 MCG/ACT 04/12/2020 12:00:00 AM EST 2.0 {sprays_in_each_nostril} active Mometasone Furoate 50 MCG/ACT eCW1 ([facility]) mesalamine 1000 MG Rectal Suppository Mesalamine 1000 MG Mes alamine 1000 MG 04/12/2020 12:00:00 AM EST 1.0 {suppository_at_bedtime} active Mesalamine 1000 MG eCW1 ([facility]) mesalamine 1000 MG Rectal Suppository Mesalamine 1000 MG Mes alamine 1000 MG 04/12/2020 12:00:00 AM EST 1.0 {suppository_at_bedtime} active Mesalamine 1000 MG eCW1 ([facility]) mesalamine 1000 MG Rectal Suppository Mesalamine 1000 MG Mes alamine 1000 MG 04/12/2020 12:00:00 AM EST 1.0 {suppository_at_bedtime} active Mesalamine 1000 MG eCW1 ([facility]) Doxycycline Monohydrate 100 MG Oral Capsule Doxycycline Sebastian hydrate 100 MG 04/12/2020 12:00:00 AM EST 1.0 {capsule} active Doxycycline Monohydrate 100 MG eCW1 ([facility]) mesalamine 1000 MG Rectal Suppository Mesalamine 1000 MG Mes alamine 1000 MG 04/12/2020 12:00:00 AM EST 1.0 {suppository_at_bedtime} active Mesalamine 1000 MG eCW1 ([facility]) Mometasone Furoate 50 MCG/ACT Mometasone Furoate 50 MCG/ACT 04/12/2020 12:00:00 AM EST 2.0 {sprays_in_each_nostril} active Mometasone Furoate 50 MCG/ACT eCW1 ([facility]) Mometasone Furoate 50 MCG/ACT Mometasone Furoate 50 MCG/ACT 04/12/2020 12:00:00 AM EST 2.0 {sprays_in_each_nostril} active Mometasone Furoate 50 MCG/ACT eCW1 ([facility]) mesalamine 1000 MG Rectal Suppository Mesalamine 1000 MG Mes alamine 1000 MG 04/12/2020 12:00:00 AM EST 1.0 {suppository_at_bedtime} active Mesalamine 1000 MG eCW1 ([facility]) Mometasone Furoate 50 MCG/ACT Mometasone Furoate 50 MCG/ACT 04/12/2020 12:00:00 AM EST 2.0 {sprays_in_each_nostril} active Mometasone Furoate 50 MCG/ACT eCW1 ([facility]) mesalamine 1000 MG Rectal Suppository Mesalamine 1000 MG Mes alamine 1000 MG 04/12/2020 12:00:00 AM EST 1.0 {suppository_at_bedtime} active Mesalamine 1000 MG eCW1 ([facility]) mesalamine 1000 MG Rectal Suppository Mesalamine 1000 MG Mes alamine 1000 MG 04/12/2020 12:00:00 AM EST 1.0 {suppository_at_bedtime} active Mesalamine 1000 MG eCW1 ([facility]) mesalamine 1000 MG Rectal Suppository Mesalamine 1000 MG Mes alamine 1000 MG 04/12/2020 12:00:00 AM EST 1.0 {suppository_at_bedtime} active Mesalamine 1000 MG eCW1 ([facility]) mesalamine 1000 MG Rectal Suppository Mesalamine 1000 MG Mes alamine 1000 MG 04/12/2020 12:00:00 AM EST 1.0 {suppository_at_bedtime} active Mesalamine 1000 MG eCW1 ([facility]) Doxycycline Monohydrate 100 MG Oral Capsule Doxycycline Sebastian hydrate 100 MG 04/12/2020 12:00:00 AM EST 1.0 {capsule} active Doxycycline Monohydrate 100 MG eCW1 ([facility]) mesalamine 1000 MG Rectal Suppository Mesalamine 1000 MG Mes alamine 1000 MG 04/12/2020 12:00:00 AM EST 1.0 {suppository_at_bedtime} active Mesalamine 1000 MG eCW1 ([facility]) mesalamine 1000 MG Rectal Suppository Mesalamine 1000 MG Mes alamine 1000 MG 04/12/2020 12:00:00 AM EST 1.0 {suppository_at_bedtime} active Mesalamine 1000 MG eCW1 ([facility]) mesalamine 1000 MG Rectal Suppository Mesalamine 1000 MG Mes alamine 1000 MG 04/12/2020 12:00:00 AM EST 1.0 {suppository_at_bedtime} active Mesalamine 1000 MG eCW1 ([facility]) mesalamine 1000 MG Rectal Suppository Mesalamine 1000 MG Mes alamine 1000 MG 04/12/2020 12:00:00 AM EST 1.0 {suppository_at_bedtime} active Mesalamine 1000 MG eCW1 ([facility]) mesalamine 1000 MG Rectal Suppository Mesalamine 1000 MG Mes alamine 1000 MG 04/12/2020 12:00:00 AM EST 1.0 {suppository_at_bedtime} active Mesalamine 1000 MG eCW1 ([facility]) Mometasone Furoate 50 MCG/ACT Mometasone Furoate 50 MCG/ACT 04/12/2020 12:00:00 AM EST 2.0 {sprays_in_each_nostril} active Mometasone Furoate 50 MCG/ACT eCW1 ([facility]) Doxycycline Monohydrate 100 MG Oral Capsule Doxycycline Sebastian hydrate 100 MG 04/12/2020 12:00:00 AM EST 1.0 {capsule} active Doxycycline Monohydrate 100 MG eCW1 ([facility]) 12 % 04/12/2020 12:00:00 AM EST cream 140 APPLY 1 APPLICATION TO FEET TWICE A DAY APPLY 1 APPLICATION TO FEET TWICE A DAY SOLD: 06/06/2020 [facility] 10 gram/15 mL 04/12/2020 12:00:00 AM EST solution 1419 TAKE 15ML BY MOUTH THREE TIMES A DAY TAKE 15ML BY MOUTH THREE TIMES A DAY SOLD: 06/06/2020 [facility] mesalamine 1000 MG Rectal Suppository Mesalamine 1000 MG Mes alamine 1000 MG 04/12/2020 12:00:00 AM EST 1.0 {suppository_at_bedtime} active Mesalamine 1000 MG eCW1 ([facility]) mesalamine 1000 MG Rectal Suppository Mesalamine 1000 MG Mes alamine 1000 MG 04/12/2020 12:00:00 AM EST 1.0 {suppository_at_bedtime} active Mesalamine 1000 MG eCW1 ([facility]) mesalamine 1000 MG Rectal Suppository Mesalamine 1000 MG Mes alamine 1000 MG 04/12/2020 12:00:00 AM EST 1.0 {suppository_at_bedtime} active Mesalamine 1000 MG eCW1 ([facility]) mesalamine 1000 MG Rectal Suppository Mesalamine 1000 MG Mes alamine 1000 MG 04/12/2020 12:00:00 AM EST 1.0 {suppository_at_bedtime} active Mesalamine 1000 MG eCW1 ([facility]) mesalamine 1000 MG Rectal Suppository Mesalamine 1000 MG Mes alamine 1000 MG 04/12/2020 12:00:00 AM EST 1.0 {suppository_at_bedtime} active Mesalamine 1000 MG eCW1 ([facility]) mesalamine 1000 MG Rectal Suppository Mesalamine 1000 MG Mes alamine 1000 MG 04/12/2020 12:00:00 AM EST 1.0 {suppository_at_bedtime} active Mesalamine 1000 MG eCW1 ([facility]) mesalamine 1000 MG Rectal Suppository Mesalamine 1000 MG Mes alamine 1000 MG 04/12/2020 12:00:00 AM EST 1.0 {suppository_at_bedtime} active Mesalamine 1000 MG eCW1 ([facility]) 1,000 mg 04/12/2020 12:00:00 AM EST suppository 30 INSERT ONE SUPPOSITORY RECTALLY AT BEDTIME INSERT ONE SUPPOSITORY RECTALLY AT BEDTIME SOLD: 08/28/2020 [facility] Mometasone Furoate 50 MCG/ACT Mometasone Furoate 50 MCG/ACT 04/12/2020 12:00:00 AM EST 2.0 {sprays_in_each_nostril} active Mometasone Furoate 50 MCG/ACT eCW1 ([facility]) Doxycycline Monohydrate 100 MG Oral Capsule Doxycycline Sebastian hydrate 100 MG 04/12/2020 12:00:00 AM EST 1.0 {capsule} active Doxycycline Monohydrate 100 MG eCW1 ([facility]) mesalamine 1000 MG Rectal Suppository Mesalamine 1000 MG Mes alamine 1000 MG 04/12/2020 12:00:00 AM EST 1.0 {suppository_at_bedtime} active Mesalamine 1000 MG eCW1 ([facility]) Mometasone Furoate 50 MCG/ACT Mometasone Furoate 50 MCG/ACT 04/12/2020 12:00:00 AM EST 2.0 {sprays_in_each_nostril} active Mometasone Furoate 50 MCG/ACT eCW1 ([facility]) mesalamine 1000 MG Rectal Suppository Mesalamine 1000 MG Mes alamine 1000 MG 04/12/2020 12:00:00 AM EST 1.0 {suppository_at_bedtime} active Mesalamine 1000 MG eCW1 ([facility]) Mometasone Furoate 50 MCG/ACT Mometasone Furoate 50 MCG/ACT 04/12/2020 12:00:00 AM EST 2.0 {sprays_in_each_nostril} active Mometasone Furoate 50 MCG/ACT eCW1 ([facility]) Mometasone Furoate 50 MCG/ACT Mometasone Furoate 50 MCG/ACT 04/12/2020 12:00:00 AM EST 2.0 {sprays_in_each_nostril} active Mometasone Furoate 50 MCG/ACT eCW1 ([facility]) Mometasone Furoate 50 MCG/ACT Mometasone Furoate 50 MCG/ACT 04/12/2020 12:00:00 AM EST 2.0 {sprays_in_each_nostril} active Mometasone Furoate 50 MCG/ACT eCW1 ([facility]) mesalamine 1000 MG Rectal Suppository Mesalamine 1000 MG Mes alamine 1000 MG 04/12/2020 12:00:00 AM EST 1.0 {suppository_at_bedtime} active Mesalamine 1000 MG eCW1 ([facility]) Mometasone Furoate 50 MCG/ACT Mometasone Furoate 50 MCG/ACT 04/12/2020 12:00:00 AM EST 2.0 {sprays_in_each_nostril} active Mometasone Furoate 50 MCG/ACT eCW1 ([facility]) mesalamine 1000 MG Rectal Suppository Mesalamine 1000 MG Mes alamine 1000 MG 04/12/2020 12:00:00 AM EST 1.0 {suppository_at_bedtime} active Mesalamine 1000 MG eCW1 ([facility]) Doxycycline Monohydrate 100 MG Oral Capsule Doxycycline Sebastian hydrate 100 MG 04/12/2020 12:00:00 AM EST 1.0 {capsule} active Doxycycline Monohydrate 100 MG eCW1 ([facility]) mesalamine 1000 MG Rectal Suppository Mesalamine 1000 MG Mes alamine 1000 MG 04/12/2020 12:00:00 AM EST 1.0 {suppository_at_bedtime} active Mesalamine 1000 MG eCW1 ([facility]) mesalamine 1000 MG Rectal Suppository Mesalamine 1000 MG Mes alamine 1000 MG 04/12/2020 12:00:00 AM EST 1.0 {suppository_at_bedtime} active Mesalamine 1000 MG eCW1 ([facility]) Mometasone Furoate 50 MCG/ACT Mometasone Furoate 50 MCG/ACT 04/12/2020 12:00:00 AM EST 2.0 {sprays_in_each_nostril} active Mometasone Furoate 50 MCG/ACT eCW1 ([facility]) Doxycycline Monohydrate 100 MG Oral Capsule Doxycycline Sebastian hydrate 100 MG 04/12/2020 12:00:00 AM EST 1.0 {capsule} active Doxycycline Monohydrate 100 MG eCW1 ([facility]) Mometasone Furoate 50 MCG/ACT Mometasone Furoate 50 MCG/ACT 04/12/2020 12:00:00 AM EST 2.0 {sprays_in_each_nostril} active Mometasone Furoate 50 MCG/ACT eCW1 ([facility]) mesalamine 1000 MG Rectal Suppository Mesalamine 1000 MG Mes alamine 1000 MG 04/12/2020 12:00:00 AM EST 1.0 {suppository_at_bedtime} active Mesalamine 1000 MG eCW1 ([facility]) mesalamine 1000 MG Rectal Suppository Mesalamine 1000 MG Mes alamine 1000 MG 04/12/2020 12:00:00 AM EST 1.0 {suppository_at_bedtime} active Mesalamine 1000 MG eCW1 ([facility]) Mometasone Furoate 50 MCG/ACT Mometasone Furoate 50 MCG/ACT 04/12/2020 12:00:00 AM EST 2.0 {sprays_in_each_nostril} active Mometasone Furoate 50 MCG/ACT eCW1 ([facility]) Mometasone Furoate 50 MCG/ACT Mometasone Furoate 50 MCG/ACT 04/12/2020 12:00:00 AM EST 2.0 {sprays_in_each_nostril} active Mometasone Furoate 50 MCG/ACT eCW1 ([facility]) Mometasone Furoate 50 MCG/ACT Mometasone Furoate 50 MCG/ACT 04/12/2020 12:00:00 AM EST 2.0 {sprays_in_each_nostril} active Mometasone Furoate 50 MCG/ACT eCW1 ([facility]) mesalamine 1000 MG Rectal Suppository Mesalamine 1000 MG Mes alamine 1000 MG 04/12/2020 12:00:00 AM EST 1.0 {suppository_at_bedtime} active Mesalamine 1000 MG eCW1 ([facility]) mesalamine 1000 MG Rectal Suppository Mesalamine 1000 MG Mes alamine 1000 MG 04/12/2020 12:00:00 AM EST 1.0 {suppository_at_bedtime} active Mesalamine 1000 MG eCW1 ([facility]) Mometasone Furoate 50 MCG/ACT Mometasone Furoate 50 MCG/ACT 04/12/2020 12:00:00 AM EST 2.0 {sprays_in_each_nostril} active Mometasone Furoate 50 MCG/ACT eCW1 ([facility]) mesalamine 1000 MG Rectal Suppository Mesalamine 1000 MG Mes alamine 1000 MG 04/12/2020 12:00:00 AM EST 1.0 {suppository_at_bedtime} active Mesalamine 1000 MG eCW1 ([facility]) mesalamine 1000 MG Rectal Suppository Mesalamine 1000 MG Mes alamine 1000 MG 04/12/2020 12:00:00 AM EST 1.0 {suppository_at_bedtime} active Mesalamine 1000 MG eCW1 ([facility]) Mometasone Furoate 50 MCG/ACT Mometasone Furoate 50 MCG/ACT 04/12/2020 12:00:00 AM EST 2.0 {sprays_in_each_nostril} active Mometasone Furoate 50 MCG/ACT eCW1 ([facility]) mesalamine 1000 MG Rectal Suppository Mesalamine 1000 MG Mes alamine 1000 MG 04/12/2020 12:00:00 AM EST 1.0 {suppository_at_bedtime} active Mesalamine 1000 MG eCW1 ([facility]) mesalamine 1000 MG Rectal Suppository Mesalamine 1000 MG Mes alamine 1000 MG 04/12/2020 12:00:00 AM EST 1.0 {suppository_at_bedtime} active Mesalamine 1000 MG eCW1 ([facility]) 4 mg/2 mL 04/10/2020 12:00:00 AM EST [...] LANCET FOUR TIMES A DAY NEEDED SOLD: 07/18/2020 [facility] 33 gauge 03/27/2020 12:00:00 AM EST misc 100 USE 1 LANCET FOUR TIMES A DAY NEEDED USE 1 LANCET FOUR TIMES A DAY NEEDED SOLD: 12/03/2020 [facility] 33 gauge 03/27/2020 12:00:00 AM EST misc 100 USE 1 LANCET FOUR TIMES A DAY NEEDED USE 1 LANCET FOUR TIMES A DAY NEEDED SOLD: 08/10/2020 [facility] 33 gauge 03/27/2020 12:00:00 AM EST misc 100 USE 1 LANCET FOUR TIMES A DAY NEEDED USE 1 LANCET FOUR TIMES A DAY NEEDED SOLD: 09/03/2020 [facility] [place]/27/2020 12:00:00 AM EST misc 100 USE 1 LANCET FOUR TIMES A DAY NEEDED USE 1 LANCET FOUR TIMES A DAY NEEDED SOLD: 04/19/2020 [facility] [place] 03/27/2020 12:00:00 AM EST misc 100 USE 1 LANCET FOUR TIMES A DAY NEEDED USE 1 LANCET FOUR TIMES A DAY NEEDED SOLD: 05/12/2020 [facility] [place] 03/27/2020 12:00:00 AM EST misc 100 USE 1 LANCET FOUR TIMES A DAY NEEDED USE 1 LANCET FOUR TIMES A DAY NEEDED SOLD: 09/25/2020 [facility] [place] 03/27/2020 12:00:00 AM EST misc 100 USE 1 LANCET FOUR TIMES A DAY NEEDED USE 1 LANCET FOUR TIMES A DAY NEEDED SOLD: 06/04/2020 [facility] [place] 03/27/2020 12:00:00 AM EST misc 100 USE 1 LANCET FOUR TIMES A DAY NEEDED USE 1 LANCET FOUR TIMES A DAY NEEDED SOLD: 03/27/2020 [facility] [place] 03/27/2020 12:00:00 AM EST misc 100 USE 1 LANCET FOUR TIMES A DAY NEEDED USE 1 LANCET FOUR TIMES A DAY NEEDED SOLD: 10/17/2020 [facility] [place] 03/27/2020 12:00:00 AM EST misc 100 USE 1 LANCET FOUR TIMES A DAY NEEDED USE 1 LANCET FOUR TIMES A DAY NEEDED SOLD: 11/10/2020 [facility] [place] 03/27/2020 12:00:00 AM EST misc 100 USE 1 LANCET FOUR TIMES A DAY NEEDED USE 1 LANCET FOUR TIMES A DAY NEEDED SOLD: 06/26/2020 [facility] 100,000 unit/gram 03/25/2020 12:00:00 AM [...] TIMES A DAY SOLD: 04/18/2020 [facility] insulin detemir 100 UNT/ML Injectable So lution Insulin Detemir 100 UNIT/ML Subcutaneous Solution Insulin Detemir 100 UNIT/ML Subcutaneous Solution 03/21/2020 12:00:00 AM EST 1 active insulin detemir 100 UNT/ML Injectable Solution JUAN DANIEL (Jhony Lowery MD [facility]) Metoclopramide 10 MG Oral Tablet Metoclopramide HCl 10 MG Oral Tablet Metoclopramide HCl 10 MG Oral Tablet 03/21/2020 12:00:00 AM EST 1 active metoclopramide 10 MG Oral Tablet JUAN DANIEL (Jhony Lowery MD [facility]) Cholecalciferol 1000 UNT Oral Capsule Ch olecalciferol 25 MCG (1000 UT) Oral Capsule Cholecalciferol 25 MCG (1000 UT) Oral Capsule 03/21/20 12:00:00 AM EST 1 active cholecalciferol 0 .025 MG Oral Capsule [place] (Jhony Lowery MD [facility]) Mupirocin 0.02 MG/MG Topical Ointment Mupirocin 2% Ext ernal Ointment Mupirocin 2% External Ointment 03/21/2020 12:00:00 AM EST 1 active mupirocin 0.02 MG/MG Topical Ointment JUAN DANIEL (Jhony Lowery MD [facility]) Triamcinolone Acetonide 1 MG/ML Topical Cream Triamcinolone Acetonide 0.1% External Cream Triamcinolone Acetonide 0.1% External Cream 03/21/2020 12:00:00 AM EST 1 active triamcinolone jennifer tonide 1 MG/ML Topical Cream JUAN DANIEL (Jhony Lowery MD [facility]) Albuterol 0.83 MG/ML Inhalant Solution A lbuterol Sulfate (2.5 MG/3ML) 0.083% Inhalation Nebulization solution Albuterol Sulfate (2.5 MG/3ML) 0.083% Inhalation Nebulization solution 03/21/2020 12:00:00 AM EST 1 active albuterol 0.83 MG/ML Inhalation Solution JUAN DANIEL (Brad Lowery MD [facility]) Simethicone 80 MG Oral Tablet Simethicone 80 MG Oral Tablet 03/21/2020 12:00:00 AM EST [address] (Jhony Lowery MD [facility]) Ondansetron 2 MG/ML Injectable Solution Ondansetron HCl 40 MG/20ML Injection Solution Ondansetron HCl 40 MG/20ML Injection Solution 03/21/20 12:00:00 AM EST 1 active ondansetron 2 MG/ ML Injectable Solution JUAN DANIEL (Jhony Lowery MD [facility]) ammonium lactate 120 MG/ML Topical Cream Ammonium Lact ate 12% External Cream Ammonium Lactate 12% External Cream 03/21/2020 12:00:00 AM EST active ammonium lactate 120 MG/ML Topical Cream JUAN DANIEL (Jhony Lowery MD [facility]) Sucralfate 1000 MG Oral Tablet Sucralfate 1 GM Oral Ta blet Sucralfate 1 GM Oral Tablet 03/21/2020 12:00:00 AM EST 1 active sucralfate 1000 MG Oral Tablet JUAN DANIEL (Jhony Lowery MD [facility]) Nystatin 15 MG Oral Tablet Nystatin 15 MG Oral Tablet 2019 12:00:00 AM EST 1 active Nystatin JUAN DANIEL (Jhony Lowery MD [facility]) Amitriptyline Hydrochloride 50 MG Oral T ablet Amitriptyline HCl 50 MG Oral Tablet Amitriptyline HCl 50 MG Oral Tablet 03/21/2020 12:00:00 AM EST 1 active amitriptyline hydrochloride 50 M G Oral Tablet JUAN DANIEL (Jhony Lowery MD [facility]) Amitriptyline Hydrochloride 50 MG Oral T ablet Amitriptyline HCl 50 MG Oral Tablet Amitriptyline HCl 50 MG Oral Tablet 03/21/2020 12:00:00 AM EST 1 active amitriptyline hydrochloride 50 M G Oral Tablet JUAN DANIEL (Jhony Lowery MD [facility]) Lactulose 667 MG/ML Oral Solution Lactulose 10 GM/15ML Oral Solution Lactulose 10 GM/15ML Oral Solution 03/21/2020 12:00:00 AM EST 1 active lactulose 667 MG/ML Oral Solution JUAN DANIEL (Jhony Lowery MD [facility]) doxycycline hyclate 100 MG Oral Tablet Doxycycline Hyc late 100 MG Doxycycline Hyclate 100 MG 03/20/2020 12:00:00 AM EST 1.0 {tablet} suspended Doxycycline Hyclate 100 MG eCW1 ([facility]) doxycycline hyclate 100 MG Oral Tablet Doxycycline Hyc late 100 MG Doxycycline Hyclate 100 MG 03/20/2020 12:00:00 AM EST 1.0 {tablet} active Doxycycline Hyclate 100 MG eCW1 ([facility]) doxycycline hyclate 100 MG Oral Tablet Doxycycline Hyc late 100 MG Doxycycline Hyclate 100 MG 03/20/2020 12:00:00 AM EST 1.0 {tablet} active Doxycycline Hyclate 100 MG eCW1 ([facility]) doxycycline hyclate 100 MG Oral Tablet Doxycycline Hyc late 100 MG Doxycycline Hyclate 100 MG 03/20/2020 12:00:00 AM EST 1.0 {tablet} suspended Doxycycline Hyclate 100 MG eCW1 ([facility]) doxycycline hyclate 100 MG Oral Tablet Doxycycline Hyc late 100 MG Doxycycline Hyclate 100 MG 03/20/2020 12:00:00 AM EST 1.0 {tablet} active Doxycycline Hyclate 100 MG eCW1 ([facility]) doxycycline hyclate 100 MG Oral Tablet Doxycycline Hyc late 100 MG Doxycycline Hyclate 100 MG 03/20/2020 12:00:00 AM EST 1.0 {tablet} active Doxycycline Hyclate 100 MG eCW1 ([facility]) doxycycline hyclate 100 MG Oral Tablet Doxycycline Hyc late 100 MG Doxycycline Hyclate 100 MG 03/20/2020 12:00:00 AM EST 1.0 {tablet} suspended Doxycycline Hyclate 100 MG eCW1 ([facility]) doxycycline hyclate 100 MG Oral Tablet Doxycycline Hyc late 100 MG Doxycycline Hyclate 100 MG 03/20/2020 12:00:00 AM EST 1.0 {tablet} suspended Doxycycline Hyclate 100 MG eCW1 ([facility]) doxycycline hyclate 100 MG Oral Tablet Doxycycline Hyc late 100 MG Doxycycline Hyclate 100 MG 03/20/2020 12:00:00 AM EST 1.0 {tablet} suspended Doxycycline Hyclate 100 MG eCW1 ([facility]) doxycycline hyclate 100 MG Oral Tablet Doxycycline Hyc late 100 MG Doxycycline Hyclate 100 MG 03/20/2020 12:00:00 AM EST 1.0 {tablet} suspended Doxycycline Hyclate 100 MG eCW1 ([facility]) doxycycline hyclate 100 MG Oral Tablet Doxycycline Hyc late 100 MG Doxycycline Hyclate 100 MG 03/20/2020 12:00:00 AM EST 1.0 {tablet} suspended Doxycycline Hyclate 100 MG eCW1 ([facility]) doxycycline hyclate 100 MG Oral Tablet Doxycycline Hyc late 100 MG Doxycycline Hyclate 100 MG 03/20/2020 12:00:00 AM EST 1.0 {tablet} suspended Doxycycline Hyclate 100 MG eCW1 ([facility]) doxycycline hyclate 100 MG Oral Tablet Doxycycline Hyc late 100 MG Doxycycline Hyclate 100 MG 03/20/2020 12:00:00 AM EST 1.0 {tablet} suspended Doxycycline Hyclate 100 MG eCW1 ([facility]) doxycycline hyclate 100 MG Oral Tablet Doxycycline Hyc late 100 MG Doxycycline Hyclate 100 MG 03/20/2020 12:00:00 AM EST 1.0 {tablet} suspended Doxycycline Hyclate 100 MG eCW1 ([facility]) doxycycline hyclate 100 MG Oral Tablet Doxycycline Hyc late 100 MG Doxycycline Hyclate 100 MG 03/20/2020 12:00:00 AM EST 1.0 {tablet} active Doxycycline Hyclate 100 MG eCW1 ([facility]) doxycycline hyclate 100 MG Oral Tablet Doxycycline Hyc late 100 MG Doxycycline Hyclate 100 MG 03/20/2020 12:00:00 AM EST 1.0 {tablet} active Doxycycline Hyclate 100 MG eCW1 ([facility]) doxycycline hyclate 100 MG Oral Tablet Doxycycline Hyc late 100 MG Doxycycline Hyclate 100 MG 03/20/2020 12:00:00 AM EST 1.0 {tablet} active Doxycycline Hyclate 100 MG eCW1 ([facility]) doxycycline hyclate 100 MG Oral Tablet Doxycycline Hyc late 100 MG Doxycycline Hyclate 100 MG 03/20/2020 12:00:00 AM EST 1.0 {tablet} suspended Doxycycline Hyclate 100 MG eCW1 ([facility]) doxycycline hyclate 100 MG Oral Tablet Doxycycline Hyc late 100 MG Doxycycline Hyclate 100 MG 03/20/2020 12:00:00 AM EST 1.0 {tablet} suspended Doxycycline Hyclate 100 MG eCW1 ([facility]) doxycycline hyclate 100 MG Oral Tablet Doxycycline Hyc late 100 MG Doxycycline Hyclate 100 MG 03/20/2020 12:00:00 AM EST 1.0 {tablet} suspended Doxycycline Hyclate 100 MG eCW1 ([facility]) doxycycline hyclate 100 MG Oral Tablet Doxycycline Hyc late 100 MG Doxycycline Hyclate 100 MG 03/20/2020 12:00:00 AM EST 1.0 {tablet} active Doxycycline Hyclate 100 MG eCW1 ([facility]) doxycycline hyclate 100 MG Oral Tablet Doxycycline Hyc late 100 MG Doxycycline Hyclate 100 MG 03/20/2020 12:00:00 AM EST 1.0 {tablet} active Doxycycline Hyclate 100 MG eCW1 ([facility]) doxycycline hyclate 100 MG Oral Tablet DOXYCYCLINE [...] {tablet} suspended Doxycycline Hyclate 100 MG eCW1 ([facility]) doxycycline hyclate 100 MG Oral Tablet Doxycycline Hyc late 100 MG Doxycycline Hyclate 100 MG 03/20/2020 12:00:00 AM EST 1.0 {tablet} suspended Doxycycline Hyclate 100 MG eCW1 ([facility]) doxycycline hyclate 100 MG Oral Tablet Doxycycline Hyc late 100 MG Doxycycline Hyclate 100 MG 03/20/2020 12:00:00 AM EST 1.0 {tablet} suspended Doxycycline Hyclate 100 MG eCW1 ([facility]) doxycycline hyclate 100 MG Oral Tablet Doxycycline Hyc late 100 MG Doxycycline Hyclate 100 MG 03/20/2020 12:00:00 AM EST 1.0 {tablet} suspended Doxycycline Hyclate 100 MG eCW1 ([facility]) doxycycline hyclate 100 MG Oral Tablet Doxycycline Hyc late 100 MG Doxycycline Hyclate 100 MG 03/20/2020 12:00:00 AM EST 1.0 {tablet} suspended Doxycycline Hyclate 100 MG eCW1 ([facility]) doxycycline hyclate 100 MG Oral Tablet Doxycycline Hyc late 100 MG Doxycycline Hyclate 100 MG 03/20/2020 12:00:00 AM EST 1.0 {tablet} suspended Doxycycline Hyclate 100 MG eCW1 ([facility]) doxycycline hyclate 100 MG Oral Tablet Doxycycline Hyc late 100 MG Doxycycline Hyclate 100 MG 03/20/2020 12:00:00 AM EST 1.0 {tablet} suspended Doxycycline Hyclate 100 MG eCW1 ([facility]) 3 ML liraglutide 6 MG/ML Pen Injector [Victoza] Victoz a 18 MG/3ML Victoza 18 MG/3ML 03/17/2020 12:00:00 AM EST active Victoza 18 MG/3ML eCW1 ([facility]) Sodium Chloride 0.9 % UNK 03/17/2020 12:00:00 AM EST active Sodium Chloride 0.9 % eCW1 ([facility]) Sodium Chloride 0.9 % UNK 03/17/2020 12:00:00 AM EST active Sodium Chloride 0.9 % eCW1 ([facility]) 3 ML liraglutide 6 MG/ML Pen Injector [Victoza] Victoz a 18 MG/3ML Victoza 18 MG/3ML 03/17/2020 12:00:00 AM EST active Victoza 18 MG/3ML eCW1 ([facility]) Sodium Chloride 0.9 % UNK 03/17/2020 12:00:00 AM EST active Sodium Chloride 0.9 % eCW1 ([facility]) ciclopirox 80 MG/ML Topical Solution Ciclopirox 8 % Ciclopir ox 8 % 03/17/2020 12:00:00 AM EST active Ciclopir ox 8 % eCW1 ([facility]) ciclopirox 80 MG/ML Topical Solution Ciclopirox 8 % Ciclopir ox 8 % 03/17/2020 12:00:00 AM EST active Ciclopir ox 8 % eCW1 ([facility]) ciclopirox 80 MG/ML Topical Solution Ciclopirox 8 % Ciclopir ox 8 % 03/17/2020 12:00:00 AM EST active Ciclopir ox 8 % eCW1 ([facility]) 3 ML liraglutide 6 MG/ML Pen Injector [Victoza] Victoz a 18 MG/3ML Victoza 18 MG/3ML 03/17/2020 12:00:00 AM EST active Victoza 18 MG/3ML eCW1 ([facility]) ciclopirox 80 MG/ML Topical Solution Ciclopirox 8 % Ciclopir ox 8 % 03/17/2020 12:00:00 AM EST active Ciclopir ox 8 % eCW1 ([facility]) 3 ML liraglutide 6 MG/ML Pen Injector [Victoza] Victoz a 18 MG/3ML Victoza 18 MG/3ML 03/17/2020 12:00:00 AM EST active Victoza 18 MG/3ML eCW1 ([facility]) ciclopirox 80 MG/ML Topical Solution Ciclopirox 8 % Ciclopir ox 8 % 03/17/2020 12:00:00 AM EST active Ciclopir ox 8 % eCW1 ([facility]) ciclopirox 80 MG/ML Topical Solution Ciclopirox 8 % Ciclopir ox 8 % 03/17/2020 12:00:00 AM EST active Ciclopir ox 8 % eCW1 ([facility]) ciclopirox 80 MG/ML Topical Solution Ciclopirox 8 % Ciclopir ox 8 % 03/17/2020 12:00:00 AM EST active Ciclopir ox 8 % eCW1 ([facility]) Sodium Chloride 0.9 % UNK 03/17/2020 12:00:00 AM EST active Sodium Chloride 0.9 % eCW1 ([facility]) ciclopirox 80 MG/ML Topical Solution Ciclopirox 8 % Ciclopir ox 8 % 03/17/2020 12:00:00 AM EST active Ciclopir ox 8 % eCW1 ([facility]) ciclopirox 80 MG/ML Topical Solution Ciclopirox 8 % Ciclopir ox 8 % 03/17/2020 12:00:00 AM EST active Ciclopir ox 8 % eCW1 ([facility]) Sodium Chloride 0.9 % UNK 03/17/2020 12:00:00 AM EST active Sodium Chloride 0.9 % eCW1 ([facility]) Sodium Chloride 0.9 % UNK 03/17/2020 12:00:00 AM EST active Sodium Chloride 0.9 % eCW1 ([facility]) ciclopirox 80 MG/ML Topical Solution Ciclopirox 8 % Ciclopir ox 8 % 03/17/2020 12:00:00 AM EST active Ciclopir ox 8 % eCW1 ([facility]) Sodium Chloride 0.9 % UNK 03/17/2020 12:00:00 AM EST active Sodium Chloride 0.9 % eCW1 ([facility]) ciclopirox 80 MG/ML Topical Solution Ciclopirox 8 % Ciclopir ox 8 % 03/17/2020 12:00:00 AM EST active Ciclopir ox 8 % eCW1 ([facility]) 3 ML liraglutide 6 MG/ML Pen Injector [Victoza] Victoz a 18 MG/3ML Victoza 18 MG/3ML 03/17/2020 12:00:00 AM EST active Victoza 18 MG/3ML eCW1 ([facility]) ciclopirox 80 MG/ML Topical Solution Ciclopirox 8 % Ciclopir ox 8 % 03/17/2020 12:00:00 AM EST active Ciclopir ox 8 % eCW1 ([facility]) ciclopirox 80 MG/ML Topical Solution Ciclopirox 8 % Ciclopir ox 8 % 03/17/2020 12:00:00 AM EST active Ciclopir ox 8 % eCW1 ([facility]) ciclopirox 80 MG/ML Topical Solution Ciclopirox 8 % Ciclopir ox 8 % 03/17/2020 12:00:00 AM EST active Ciclopir ox 8 % eCW1 ([facility]) ciclopirox 80 MG/ML Topical Solution Ciclopirox 8 % Ciclopir ox 8 % 03/17/2020 12:00:00 AM EST active Ciclopir ox 8 % eCW1 ([facility]) 3 ML liraglutide 6 MG/ML Pen Injector [Victoza] Victoz a 18 MG/3ML Victoza 18 MG/3ML 03/17/2020 12:00:00 AM EST active Victoza 18 MG/3ML eCW1 ([facility]) ciclopirox 80 MG/ML Topical Solution Ciclopirox 8 % Ciclopir ox 8 % 03/17/2020 12:00:00 AM EST active Ciclopir ox 8 % eCW1 ([facility]) ciclopirox 80 MG/ML Topical Solution Ciclopirox 8 % Ciclopir ox 8 % 03/17/2020 12:00:00 AM EST active Ciclopir ox 8 % eCW1 ([facility]) Sodium Chloride 0.9 % UNK 03/17/2020 12:00:00 AM EST active Sodium Chloride 0.9 % eCW1 ([facility]) 3 ML liraglutide 6 MG/ML Pen Injector [Victoza] Victoz a 18 MG/3ML Victoza 18 MG/3ML 03/17/2020 12:00:00 AM EST active Victoza 18 MG/3ML eCW1 ([facility]) 3 ML liraglutide 6 MG/ML Pen Injector [Victoza] Victoz a 18 MG/3ML Victoza 18 MG/3ML 03/17/2020 12:00:00 AM EST active Victoza 18 MG/3ML eCW1 ([facility]) 8 % 03/17/2020 12:00:00 AM EST solution 6 APPLY TO THE 5TH FINGERNAIL ONCE A DAY, CLEAN OFF WITH AN ALCOHOL PREP PAD ONCE A WEEK APPLY TO THE 5TH FINGERNAIL ONCE A DAY, CLEAN OFF WITH AN ALCOHOL PREP PAD ONCE A WEEK SOLD: 03/17/2020 [facility] ciclopirox 80 MG/ML Topical Solution Ciclopirox 8 % Ciclopir ox 8 % 03/17/2020 12:00:00 AM EST active Ciclopir ox 8 % eCW1 ([facility]) Sodium Chloride 0.9 % UNK 03/17/2020 12:00:00 AM EST active Sodium Chloride 0.9 % eCW1 ([facility]) 8 % 03/17/2020 12:00:00 AM EST solution 6 APPLY TO THE 5TH FINGERNAIL ONCE A DAY, CLEAN OFF WITH AN ALCOHOL PREP PAD ONCE A WEEK APPLY TO THE 5TH FINGERNAIL ONCE A DAY, CLEAN OFF WITH AN ALCOHOL PREP PAD ONCE A WEEK SOLD: 04/14/2020 [facility] 3 ML liraglutide 6 MG/ML Pen Injector [Victoza] Victoz a 18 MG/3ML Victoza 18 MG/3ML 03/17/2020 12:00:00 AM EST active Victoza 18 MG/3ML eCW1 ([facility]) 3 ML liraglutide 6 MG/ML Pen Injector [Victoza] Victoz a 18 MG/3ML Victoza 18 MG/3ML 03/17/2020 12:00:00 AM EST active Victoza 18 MG/3ML eCW1 ([facility]) 3 ML liraglutide 6 MG/ML Pen Injector [Victoza] Victoz a 18 MG/3ML Victoza 18 MG/3ML 03/17/2020 12:00:00 AM EST active Victoza 18 MG/3ML eCW1 ([facility]) 3 ML liraglutide 6 MG/ML Pen Injector [Victoza] Victoz a 18 MG/3ML Victoza 18 MG/3ML 03/17/2020 12:00:00 AM EST active Victoza 18 MG/3ML eCW1 ([facility]) Sodium Chloride 0.9 % UNK 03/17/2020 12:00:00 AM EST active Sodium Chloride 0.9 % eCW1 ([facility]) Sodium Chloride 0.9 % UNK 03/17/2020 12:00:00 AM EST active Sodium Chloride 0.9 % eCW1 ([facility]) ciclopirox 80 MG/ML Topical Solution Ciclopirox 8 % Ciclopir ox 8 % 03/17/2020 12:00:00 AM EST active Ciclopir ox 8 % eCW1 ([facility]) Sodium Chloride 0.9 % UNK 03/17/2020 12:00:00 AM EST active Sodium Chloride 0.9 % eCW1 ([facility]) Sodium Chloride 0.9 % UNK 03/17/2020 12:00:00 AM EST active Sodium Chloride 0.9 % eCW1 ([facility]) Sodium Chloride 0.9 % UNK 03/17/2020 12:00:00 AM EST active Sodium Chloride 0.9 % eCW1 ([facility]) Sodium Chloride 0.9 % UNK 03/17/2020 12:00:00 AM EST active Sodium Chloride 0.9 % eCW1 ([facility]) ciclopirox 80 MG/ML Topical Solution Ciclopirox 8 % Ciclopir ox 8 % 03/17/2020 12:00:00 AM EST active Ciclopir ox 8 % eCW1 ([facility]) 3 ML liraglutide 6 MG/ML Pen Injector [Victoza] Victoz a 18 MG/3ML Victoza 18 MG/3ML 03/17/2020 12:00:00 AM EST active Victoza 18 MG/3ML eCW1 ([facility]) ciclopirox 80 MG/ML Topical Solution Ciclopirox 8 % Ciclopir ox 8 % 03/17/2020 12:00:00 AM EST active Ciclopir ox 8 % eCW1 ([facility]) Sodium Chloride 0.9 % UNK 03/17/2020 12:00:00 AM EST active Sodium Chloride 0.9 % eCW1 ([facility]) ciclopirox 80 MG/ML Topical Solution Ciclopirox 8 % Ciclopir ox 8 % 03/17/2020 12:00:00 AM EST suspended eCW1 ([facility]) Sodium Chloride 0.9 % UNK 03/17/2020 12:00:00 AM EST active Sodium Chloride 0.9 % eCW1 ([facility]) Sodium Chloride 0.9 % UNK 03/17/2020 12:00:00 AM EST active Sodium Chloride 0.9 % eCW1 ([facility]) Sodium Chloride 0.9 % UNK 03/17/2020 12:00:00 AM EST active Sodium Chloride 0.9 % eCW1 ([facility]) Sodium Chloride 0.9 % UNK 03/17/2020 12:00:00 AM EST active Sodium Chloride 0.9 % eCW1 ([facility]) Sodium Chloride 0.9 % UNK 03/17/2020 12:00:00 AM EST active Sodium Chloride 0.9 % eCW1 ([facility]) 3 ML liraglutide 6 MG/ML Pen Injector [Victoza] Victoz a 18 MG/3ML Victoza 18 MG/3ML 03/17/2020 12:00:00 AM EST active Victoza 18 MG/3ML eCW1 ([facility]) 3 ML liraglutide 6 MG/ML Pen Injector [Victoza] Victoz a 18 MG/3ML Victoza 18 MG/3ML 03/17/2020 12:00:00 AM EST active Victoza 18 MG/3ML eCW1 ([facility]) Sodium Chloride 0.9 % UNK 03/17/2020 12:00:00 AM EST active Sodium Chloride 0.9 % eCW1 ([facility]) Sodium Chloride 0.9 % UNK 03/17/2020 12:00:00 AM EST active Sodium Chloride 0.9 % eCW1 ([facility]) Sodium Chloride 0.9 % UNK 03/17/2020 12:00:00 AM EST active Sodium Chloride 0.9 % eCW1 ([facility]) 3 ML liraglutide 6 MG/ML Pen Injector [Victoza] Victoz a 18 MG/3ML Victoza 18 MG/3ML 03/17/2020 12:00:00 AM EST active Victoza 18 MG/3ML eCW1 ([facility]) 3 ML liraglutide 6 MG/ML Pen Injector [Victoza] Victoz a 18 MG/3ML Victoza 18 MG/3ML 03/17/2020 12:00:00 AM EST active Victoza 18 MG/3ML eCW1 ([facility]) Sodium Chloride 0.9 % UNK 03/17/2020 12:00:00 AM EST active Sodium Chloride 0.9 % eCW1 ([facility]) 3 ML liraglutide 6 MG/ML Pen Injector [Victoza] Victoz a 18 MG/3ML Victoza 18 MG/3ML 03/17/2020 12:00:00 AM EST active Victoza 18 MG/3ML eCW1 ([facility]) ciclopirox 80 MG/ML Topical Solution Ciclopirox 8 % Ciclopir ox 8 % 03/17/2020 12:00:00 AM EST active Ciclopir ox 8 % eCW1 ([facility]) Sodium Chloride 0.9 % UNK 03/17/2020 12:00:00 AM EST active Sodium Chloride 0.9 % eCW1 ([facility]) Sodium Chloride 0.9 % UNK 03/17/2020 12:00:00 AM EST active Sodium Chloride 0.9 % eCW1 ([facility]) 3 ML liraglutide 6 MG/ML Pen Injector [Victoza] Victoz a 18 MG/3ML Victoza 18 MG/3ML 03/17/2020 12:00:00 AM EST active Victoza 18 MG/3ML eCW1 ([facility]) Sodium Chloride 0.9 % UNK 03/17/2020 12:00:00 AM EST active Sodium Chloride 0.9 % eCW1 ([facility]) Sodium Chloride 0.9 % UNK 03/17/2020 12:00:00 AM EST active Sodium Chloride 0.9 % eCW1 ([facility]) ciclopirox 80 MG/ML Topical Solution Ciclopirox 8 % Ciclopir ox 8 % 03/17/2020 12:00:00 AM EST active Ciclopir ox 8 % eCW1 ([facility]) 3 ML liraglutide 6 MG/ML Pen Injector [Victoza] Victoz a 18 MG/3ML Victoza 18 MG/3ML 03/17/2020 12:00:00 AM EST active Victoza 18 MG/3ML eCW1 ([facility]) Sodium Chloride 0.9 % UNK 03/17/2020 12:00:00 AM EST active Sodium Chloride 0.9 % eCW1 ([facility]) ciclopirox 80 MG/ML Topical Solution Ciclopirox 8 % Ciclopir ox 8 % 03/17/2020 12:00:00 AM EST active Ciclopir ox 8 % eCW1 ([facility]) 3 ML liraglutide 6 MG/ML Pen Injector [Victoza] Victoz a 18 MG/3ML Victoza 18 MG/3ML 03/17/2020 12:00:00 AM EST active Victoza 18 MG/3ML eCW1 ([facility]) ciclopirox 80 MG/ML Topical Solution Ciclopirox 8 % Ciclopir ox 8 % 03/17/2020 12:00:00 AM EST active Ciclopir ox 8 % eCW1 ([facility]) Sodium Chloride 0.9 % UNK 03/17/2020 12:00:00 AM EST active Sodium Chloride 0.9 % eCW1 ([facility]) 3 ML liraglutide 6 MG/ML Pen Injector [Victoza] Victoz a 18 MG/3ML Victoza 18 MG/3ML 03/17/2020 12:00:00 AM EST active Victoza 18 MG/3ML eCW1 ([facility]) Sodium Chloride 0.9 % UNK 03/17/2020 12:00:00 AM EST active Sodium Chloride 0.9 % eCW1 ([facility]) 3 ML liraglutide 6 MG/ML Pen Injector [Victoza] Victoz a 18 MG/3ML Victoza 18 MG/3ML 03/17/2020 12:00:00 AM EST active Victoza 18 MG/3ML eCW1 ([facility]) 3 ML liraglutide 6 MG/ML Pen Injector [Victoza] Victoz a 18 MG/3ML Victoza 18 MG/3ML 03/17/2020 12:00:00 AM EST active Victoza 18 MG/3ML eCW1 ([facility]) Sodium Chloride 0.9 % UNK 03/17/2020 12:00:00 AM EST active Sodium Chloride 0.9 % eCW1 ([facility]) Sodium Chloride 0.9 % UNK 03/17/2020 12:00:00 AM EST active Sodium Chloride 0.9 % eCW1 ([facility]) ciclopirox 80 MG/ML Topical Solution Ciclopirox 8 % Ciclopir ox 8 % 03/17/2020 12:00:00 AM EST active Ciclopir ox 8 % eCW1 ([facility]) 3 ML liraglutide 6 MG/ML Pen Injector [Victoza] Victoz a 18 MG/3ML Victoza 18 MG/3ML 03/17/2020 12:00:00 AM EST active eCW1 ([facility]) 3 ML liraglutide 6 MG/ML Pen Injector [Victoza] Victoz a 18 MG/3ML Victoza 18 MG/3ML 03/17/2020 12:00:00 AM EST active Victoza 18 MG/3ML eCW1 ([facility]) 3 ML liraglutide 6 MG/ML Pen Injector [Victoza] Victoz a 18 MG/3ML Victoza 18 MG/3ML 03/17/2020 12:00:00 AM EST active Victoza 18 MG/3ML eCW1 ([facility]) 3 ML liraglutide 6 MG/ML Pen Injector [Victoza] Victoz a 18 MG/3ML Victoza 18 MG/3ML 03/17/2020 12:00:00 AM EST active Victoza 18 MG/3ML eCW1 ([facility]) ciclopirox 80 MG/ML Topical Solution Ciclopirox 8 % Ciclopir ox 8 % 03/17/2020 12:00:00 AM EST active Ciclopir ox 8 % eCW1 ([facility]) ciclopirox 80 MG/ML Topical Solution Ciclopirox 8 % Ciclopir ox 8 % 03/17/2020 12:00:00 AM EST suspended Ciclo pirox 8 % eCW1 ([facility]) Sodium Chloride 0.9 % UNK 03/17/2020 12:00:00 AM EST active Sodium Chloride 0.9 % eCW1 ([facility]) Sodium Chloride 0.9 % UNK 03/17/2020 12:00:00 AM EST active Sodium Chloride 0.9 % eCW1 ([facility]) Sodium Chloride 0.9 % UNK 03/17/2020 12:00:00 AM EST active Sodium Chloride 0.9 % eCW1 ([facility]) Sodium Chloride 0.9 % UNK 03/17/2020 12:00:00 AM EST active Sodium Chloride 0.9 % eCW1 ([facility]) ciclopirox 80 MG/ML Topical Solution Ciclopirox 8 % Ciclopir ox 8 % 03/17/2020 12:00:00 AM EST active Ciclopir ox 8 % eCW1 ([facility]) 3 ML liraglutide 6 MG/ML Pen Injector [Victoza] Victoz a 18 MG/3ML Victoza 18 MG/3ML 03/17/2020 12:00:00 AM EST active Victoza 18 MG/3ML eCW1 ([facility]) Sodium Chloride 0.9 % UNK 03/17/2020 12:00:00 AM EST active Sodium Chloride 0.9 % eCW1 ([facility]) ciclopirox 80 MG/ML Topical Solution Ciclopirox 8 % Ciclopir ox 8 % 03/17/2020 12:00:00 AM EST active Ciclopir ox 8 % eCW1 ([facility]) 3 ML liraglutide 6 MG/ML Pen Injector [Victoza] Victoz a 18 MG/3ML Victoza 18 MG/3ML 03/17/2020 12:00:00 AM EST active Victoza 18 MG/3ML eCW1 ([facility]) 3 ML liraglutide 6 MG/ML Pen Injector [Victoza] Victoz a 18 MG/3ML Victoza 18 MG/3ML 03/17/2020 12:00:00 AM EST active Victoza 18 MG/3ML eCW1 ([facility]) Sodium Chloride 0.9 % UNK 03/17/2020 12:00:00 AM EST active Sodium Chloride 0.9 % eCW1 ([facility]) Sodium Chloride 0.9 % UNK 03/17/2020 12:00:00 AM EST active Sodium Chloride 0.9 % eCW1 ([facility]) Sodium Chloride 0.9 % UNK 03/17/2020 12:00:00 AM EST active Sodium Chloride 0.9 % eCW1 ([facility]) Sodium Chloride 0.9 % UNK 03/17/2020 12:00:00 AM EST active Sodium Chloride 0.9 % eCW1 ([facility]) 3 ML liraglutide 6 MG/ML Pen Injector [Victoza] Victoz a 18 MG/3ML Victoza 18 MG/3ML 03/17/2020 12:00:00 AM EST active Victoza 18 MG/3ML eCW1 ([facility]) 3 ML liraglutide 6 MG/ML Pen Injector [Victoza] Victoz a 18 MG/3ML Victoza 18 MG/3ML 03/17/2020 12:00:00 AM EST active Victoza 18 MG/3ML eCW1 ([facility]) 3 ML liraglutide 6 MG/ML Pen Injector [Victoza] Victoz a 18 MG/3ML Victoza 18 MG/3ML 03/17/2020 12:00:00 AM EST active Victoza 18 MG/3ML eCW1 ([facility]) ciclopirox 80 MG/ML Topical Solution Ciclopirox 8 % Ciclopir ox 8 % 03/17/2020 12:00:00 AM EST active Ciclopir ox 8 % eCW1 ([facility]) Sodium Chloride 0.9 % UNK 03/17/2020 12:00:00 AM EST active Sodium Chloride 0.9 % eCW1 ([facility]) 3 ML liraglutide 6 MG/ML Pen Injector [Victoza] Victoz a 18 MG/3ML Victoza 18 MG/3ML 03/17/2020 12:00:00 AM EST active Victoza 18 MG/3ML eCW1 ([facility]) 3 ML liraglutide 6 MG/ML Pen Injector [Victoza] Victoz a 18 MG/3ML Victoza 18 MG/3ML 03/17/2020 12:00:00 AM EST active Victoza 18 MG/3ML eCW1 ([facility]) Sodium Chloride 0.9 % UNK 03/17/2020 12:00:00 AM EST active Sodium Chloride 0.9 % eCW1 ([facility]) Sodium Chloride 0.9 % UNK 03/17/2020 12:00:00 AM EST active Sodium Chloride 0.9 % eCW1 ([facility]) 3 ML liraglutide 6 MG/ML Pen Injector [Victoza] Victoz a 18 MG/3ML Victoza 18 MG/3ML 03/17/2020 12:00:00 AM EST active Victoza 18 MG/3ML eCW1 ([facility]) 3 ML liraglutide 6 MG/ML Pen Injector [Victoza] Victoz a 18 MG/3ML Victoza 18 MG/3ML 03/17/2020 12:00:00 AM EST active Victoza 18 MG/3ML eCW1 ([facility]) Sodium Chloride 0.9 % UNK 03/17/2020 12:00:00 AM EST active Sodium Chloride 0.9 % eCW1 ([facility]) ciclopirox 80 MG/ML Topical Solution Ciclopirox 8 % Ciclopir ox 8 % 03/17/2020 12:00:00 AM EST active Ciclopir ox 8 % eCW1 ([facility]) ciclopirox 80 MG/ML Topical Solution Ciclopirox 8 % Ciclopir ox 8 % 03/17/2020 12:00:00 AM EST active Ciclopir ox 8 % eCW1 ([facility]) Sodium Chloride 0.9 % UNK 03/17/2020 12:00:00 AM EST active Sodium Chloride 0.9 % eCW1 ([facility]) ciclopirox 80 MG/ML Topical Solution Ciclopirox 8 % Ciclopir ox 8 % 03/17/2020 12:00:00 AM EST active Ciclopir ox 8 % eCW1 ([facility]) 3 ML liraglutide 6 MG/ML Pen Injector [Victoza] Victoz a 18 MG/3ML Victoza 18 MG/3ML 03/17/2020 12:00:00 AM EST active Victoza 18 MG/3ML eCW1 ([facility]) Sodium Chloride 0.9 % UNK 03/17/2020 12:00:00 AM EST active Sodium Chloride 0.9 % eCW1 ([facility]) ciclopirox 80 MG/ML Topical Solution Ciclopirox 8 % Ciclopir ox 8 % 03/17/2020 12:00:00 AM EST active Ciclopir ox 8 % eCW1 ([facility]) 3 ML liraglutide 6 MG/ML Pen Injector [Victoza] Victoz a 18 MG/3ML Victoza 18 MG/3ML 03/17/2020 12:00:00 AM EST active Victoza 18 MG/3ML eCW1 ([facility]) Sodium Chloride 0.9 % UNK 03/17/2020 12:00:00 AM EST active Sodium Chloride 0.9 % eCW1 ([facility]) 3 ML liraglutide 6 MG/ML Pen Injector [Victoza] Victoz a 18 MG/3ML Victoza 18 MG/3ML 03/17/2020 12:00:00 AM EST active Victoza 18 MG/3ML eCW1 ([facility]) 3 ML liraglutide 6 MG/ML Pen Injector [Victoza] Victoz a 18 MG/3ML Victoza 18 MG/3ML 03/17/2020 12:00:00 AM EST active Victoza 18 MG/3ML eCW1 ([facility]) ciclopirox 80 MG/ML Topical Solution Ciclopirox 8 % Ciclopir ox 8 % 03/17/2020 12:00:00 AM EST active Ciclopir ox 8 % eCW1 ([facility]) 3 ML liraglutide 6 MG/ML Pen Injector [Victoza] Victoz a 18 MG/3ML Victoza 18 MG/3ML 03/17/2020 12:00:00 AM EST active Victoza 18 MG/3ML eCW1 ([facility]) Sodium Chloride 0.9 % UNK 03/17/2020 12:00:00 AM EST active Sodium Chloride 0.9 % eCW1 ([facility]) ciclopirox 80 MG/ML Topical Solution Ciclopirox 8 % Ciclopir ox 8 % 03/17/2020 12:00:00 AM EST active Ciclopir ox 8 % eCW1 ([facility]) 3 ML liraglutide 6 MG/ML Pen Injector [Victoza] Victoz a 18 MG/3ML Victoza 18 MG/3ML 03/17/2020 12:00:00 AM EST active Victoza 18 MG/3ML eCW1 ([facility]) ciclopirox 80 MG/ML Topical Solution Ciclopirox 8 % Ciclopir ox 8 % 03/17/2020 12:00:00 AM EST active Ciclopir ox 8 % eCW1 ([facility]) Sodium Chloride 0.9 % UNK 03/17/2020 12:00:00 AM EST active Sodium Chloride 0.9 % eCW1 ([facility]) ciclopirox 80 MG/ML Topical Solution Ciclopirox 8 % Ciclopir ox 8 % 03/17/2020 12:00:00 AM EST active Ciclopir ox 8 % eCW1 ([facility]) ciclopirox 80 MG/ML Topical Solution Ciclopirox 8 % Ciclopir ox 8 % 03/17/2020 12:00:00 AM EST active Ciclopir ox 8 % eCW1 ([facility]) 3 ML liraglutide 6 MG/ML Pen Injector [Victoza] Victoz a 18 MG/3ML Victoza 18 MG/3ML 03/17/2020 12:00:00 AM EST active Victoza 18 MG/3ML eCW1 ([facility]) 3 ML liraglutide 6 MG/ML Pen Injector [Victoza] Victoz a 18 MG/3ML Victoza 18 MG/3ML 03/17/2020 12:00:00 AM EST active Victoza 18 MG/3ML eCW1 ([facility]) Sodium Chloride 0.9 % UNK 03/17/2020 12:00:00 AM EST active Sodium Chloride 0.9 % eCW1 ([facility]) ciclopirox 80 MG/ML Topical Solution Ciclopirox 8 % Ciclopir ox 8 % 03/17/2020 12:00:00 AM EST suspended Ciclo pirox 8 % eCW1 ([facility]) ciclopirox 80 MG/ML Topical Solution Ciclopirox 8 % Ciclopir ox 8 % 03/17/2020 12:00:00 AM EST active Ciclopir ox 8 % eCW1 ([facility]) 3 ML liraglutide 6 MG/ML Pen Injector [Victoza] Victoz a 18 MG/3ML Victoza 18 MG/3ML 03/17/2020 12:00:00 AM EST active Victoza 18 MG/3ML eCW1 ([facility]) ciclopirox 80 MG/ML Topical Solution Ciclopirox 8 % Ciclopir ox 8 % 03/17/2020 12:00:00 AM EST active Ciclopir ox 8 % eCW1 ([facility]) 3 ML liraglutide 6 MG/ML Pen Injector [Victoza] Victoz a 18 MG/3ML Victoza 18 MG/3ML 03/17/2020 12:00:00 AM EST active Victoza 18 MG/3ML eCW1 ([facility]) ciclopirox 80 MG/ML Topical Solution Ciclopirox 8 % Ciclopir ox 8 % 03/17/2020 12:00:00 AM EST active Ciclopir ox 8 % eCW1 ([facility]) 3 ML liraglutide 6 MG/ML Pen Injector [Victoza] Victoz a 18 MG/3ML Victoza 18 MG/3ML 03/17/2020 12:00:00 AM EST active Victoza 18 MG/3ML eCW1 ([facility]) ciclopirox 80 MG/ML Topical Solution Ciclopirox 8 % Ciclopir ox 8 % 03/17/2020 12:00:00 AM EST active Ciclopir ox 8 % eCW1 ([facility]) ciclopirox 80 MG/ML Topical Solution Ciclopirox 8 % Ciclopir ox 8 % 03/17/2020 12:00:00 AM EST active Ciclopir ox 8 % eCW1 ([facility]) ciclopirox 80 MG/ML Topical Solution Ciclopirox 8 % Ciclopir ox 8 % 03/17/2020 12:00:00 AM EST active Ciclopir ox 8 % eCW1 ([facility]) Sodium Chloride 0.9 % UNK 03/17/2020 12:00:00 AM EST active Sodium Chloride 0.9 % eCW1 ([facility]) 3 ML liraglutide 6 MG/ML Pen Injector [Victoza] Victoz a 18 MG/3ML Victoza 18 MG/3ML 03/17/2020 12:00:00 AM EST active Victoza 18 MG/3ML eCW1 ([facility]) ciclopirox 80 MG/ML Topical Solution Ciclopirox 8 % Ciclopir ox 8 % 03/17/2020 12:00:00 AM EST active Ciclopir ox 8 % eCW1 ([facility]) Sodium Chloride 0.9 % UNK 03/17/2020 12:00:00 AM EST active Sodium Chloride 0.9 % eCW1 ([facility]) 3 ML liraglutide 6 MG/ML Pen Injector [Victoza] Victoz a 18 MG/3ML Victoza 18 MG/3ML 03/17/2020 12:00:00 AM EST active Victoza 18 MG/3ML eCW1 ([facility]) ciclopirox 80 MG/ML Topical Solution Ciclopirox 8 % Ciclopir ox 8 % 03/17/2020 12:00:00 AM EST active Ciclopir ox 8 % eCW1 ([facility]) ciclopirox 80 MG/ML Topical Solution Ciclopirox 8 % Ciclopir ox 8 % 03/17/2020 12:00:00 AM EST active Ciclopir ox 8 % eCW1 ([facility]) 3 ML liraglutide 6 MG/ML Pen Injector [Victoza] Victoz a 18 MG/3ML Victoza 18 MG/3ML 03/17/2020 12:00:00 AM EST active Victoza 18 MG/3ML eCW1 ([facility]) Sodium Chloride 0.9 % UNK 03/17/2020 12:00:00 AM EST active Sodium Chloride 0.9 % eCW1 ([facility]) ciclopirox 80 MG/ML Topical Solution Ciclopirox 8 % Ciclopir ox 8 % 03/17/2020 12:00:00 AM EST active Ciclopir ox 8 % eCW1 ([facility]) Sodium Chloride 0.9 % UNK 03/17/2020 12:00:00 AM EST active Sodium Chloride 0.9 % eCW1 ([facility]) 3 ML liraglutide 6 MG/ML Pen Injector [Victoza] Victoz a 18 MG/3ML Victoza 18 MG/3ML 03/17/2020 12:00:00 AM EST active Victoza 18 MG/3ML eCW1 ([facility]) Sodium Chloride 0.9 % UNK 03/17/2020 12:00:00 AM EST active Sodium Chloride 0.9 % eCW1 ([facility]) ciclopirox 80 MG/ML Topical Solution Ciclopirox 8 % Ciclopir ox 8 % 03/17/2020 12:00:00 AM EST active Ciclopir ox 8 % eCW1 ([facility]) 3 ML liraglutide 6 MG/ML Pen Injector [Victoza] Victoz a 18 MG/3ML Victoza 18 MG/3ML 03/17/2020 12:00:00 AM EST active Victoza 18 MG/3ML eCW1 ([facility]) Sodium Chloride 0.9 % UNK 03/17/2020 12:00:00 AM EST active Sodium Chloride 0.9 % eCW1 ([facility]) Sodium Chloride 0.9 % UNK 03/17/2020 12:00:00 AM EST active Sodium Chloride 0.9 % eCW1 ([facility]) Sodium Chloride 0.9 % UNK 03/17/2020 12:00:00 AM EST active Sodium Chloride 0.9 % eCW1 ([facility]) ciclopirox 80 MG/ML Topical Solution Ciclopirox 8 % Ciclopir ox 8 % 03/17/2020 12:00:00 AM EST active Ciclopir ox 8 % eCW1 ([facility]) 3 ML liraglutide 6 MG/ML Pen Injector [Victoza] Victoz a 18 MG/3ML Victoza 18 MG/3ML 03/17/2020 12:00:00 AM EST active Victoza 18 MG/3ML eCW1 ([facility]) ciclopirox 80 MG/ML Topical Solution Ciclopirox 8 % Ciclopir ox 8 % 03/17/2020 12:00:00 AM EST suspended Ciclo pirox 8 % eCW1 ([facility]) 3 ML liraglutide 6 MG/ML Pen Injector [Victoza] Victoz a 18 MG/3ML Victoza 18 MG/3ML 03/17/2020 12:00:00 AM EST active Victoza 18 MG/3ML eCW1 ([facility]) ciclopirox 80 MG/ML Topical Solution Ciclopirox 8 % Ciclopir ox 8 % 03/17/2020 12:00:00 AM EST active Ciclopir ox 8 % eCW1 ([facility]) 3 ML liraglutide 6 MG/ML Pen Injector [Victoza] Victoz a 18 MG/3ML Victoza 18 MG/3ML 03/17/2020 12:00:00 AM EST active Victoza 18 MG/3ML eCW1 ([facility]) Sodium Chloride 0.9 % UNK 03/17/2020 12:00:00 AM EST active Sodium Chloride 0.9 % eCW1 ([facility]) Sodium Chloride 0.9 % UNK 03/17/2020 12:00:00 AM EST active Sodium Chloride 0.9 % eCW1 ([facility]) 3 ML liraglutide 6 MG/ML Pen Injector [Victoza] Victoz a 18 MG/3ML Victoza 18 MG/3ML 03/17/2020 12:00:00 AM EST active Victoza 18 MG/3ML eCW1 ([facility]) ciclopirox 80 MG/ML Topical Solution Ciclopirox 8 % Ciclopir ox 8 % 03/17/2020 12:00:00 AM EST active Ciclopir ox 8 % eCW1 ([facility]) Sodium Chloride 0.9 % UNK 03/17/2020 12:00:00 AM EST active Sodium Chloride 0.9 % eCW1 ([facility]) Sodium Chloride 0.9 % UNK 03/17/2020 12:00:00 AM EST active Sodium Chloride 0.9 % eCW1 ([facility]) 3 ML liraglutide 6 MG/ML Pen Injector [Victoza] Victoz a 18 MG/3ML Victoza 18 MG/3ML 03/17/2020 12:00:00 AM EST active Victoza 18 MG/3ML eCW1 ([facility]) 3 ML liraglutide 6 MG/ML Pen Injector [Victoza] Victoz a 18 MG/3ML Victoza 18 MG/3ML 03/17/2020 12:00:00 AM EST active Victoza 18 MG/3ML eCW1 ([facility]) 3 ML liraglutide 6 MG/ML Pen Injector [Victoza] Victoz a 18 MG/3ML Victoza 18 MG/3ML 03/17/2020 12:00:00 AM EST active Victoza 18 MG/3ML eCW1 ([facility]) 3 ML liraglutide 6 MG/ML Pen Injector [Victoza] Victoz a 18 MG/3ML Victoza 18 MG/3ML 03/17/2020 12:00:00 AM EST active Victoza 18 MG/3ML eCW1 ([facility]) 3 ML liraglutide 6 MG/ML Pen Injector [Victoza] Victoz a 18 MG/3ML Victoza 18 MG/3ML 03/17/2020 12:00:00 AM EST active Victoza 18 MG/3ML eCW1 ([facility]) 3 ML liraglutide 6 MG/ML Pen Injector [Victoza] Victoz a 18 MG/3ML Victoza 18 MG/3ML 03/17/2020 12:00:00 AM EST active Victoza 18 MG/3ML eCW1 ([facility]) 3 ML liraglutide 6 MG/ML Pen Injector [Victoza] Victoz a 18 MG/3ML Victoza 18 MG/3ML 03/17/2020 12:00:00 AM EST active Victoza 18 MG/3ML eCW1 ([facility]) Sodium Chloride 0.9 % UNK 03/17/2020 12:00:00 AM EST active Sodium Chloride 0.9 % eCW1 ([facility]) ciclopirox 80 MG/ML Topical Solution Ciclopirox 8 % Ciclopir ox 8 % 03/17/2020 12:00:00 AM EST active Ciclopir ox 8 % eCW1 ([facility]) 3 ML liraglutide 6 MG/ML Pen Injector [Victoza] Victoz a 18 MG/3ML Victoza 18 MG/3ML 03/17/2020 12:00:00 AM EST active Victoza 18 MG/3ML eCW1 ([facility]) Sodium Chloride 0.9 % UNK 03/17/2020 12:00:00 AM EST active Sodium Chloride 0.9 % eCW1 ([facility]) Sodium Chloride 0.9 % UNK 03/17/2020 12:00:00 AM EST active Sodium Chloride 0.9 % eCW1 ([facility]) 3 ML liraglutide 6 MG/ML Pen Injector [Victoza] Victoz a 18 MG/3ML Victoza 18 MG/3ML 03/17/2020 12:00:00 AM EST active Victoza 18 MG/3ML eCW1 ([facility]) ciclopirox 80 MG/ML Topical Solution Ciclopirox 8 % Ciclopir ox 8 % 03/17/2020 12:00:00 AM EST active Ciclopir ox 8 % eCW1 ([facility]) Sodium Chloride 0.9 % UNK 03/17/2020 12:00:00 AM EST active Sodium Chloride 0.9 % eCW1 ([facility]) 3 ML liraglutide 6 MG/ML Pen Injector [Victoza] Victoz a 18 MG/3ML Victoza 18 MG/3ML 03/17/2020 12:00:00 AM EST active Victoza 18 MG/3ML eCW1 ([facility]) 3 ML liraglutide 6 MG/ML Pen Injector [Victoza] Victoz a 18 MG/3ML Victoza 18 MG/3ML 03/17/2020 12:00:00 AM EST active Victoza 18 MG/3ML eCW1 ([facility]) ciclopirox 80 MG/ML Topical Solution Ciclopirox 8 % Ciclopir ox 8 % 03/17/2020 12:00:00 AM EST active Ciclopir ox 8 % eCW1 ([facility]) 3 ML liraglutide 6 MG/ML Pen Injector [Victoza] Victoz a 18 MG/3ML Victoza 18 MG/3ML 03/17/2020 12:00:00 AM EST active Victoza 18 MG/3ML eCW1 ([facility]) Sodium Chloride 0.9 % UNK 03/17/2020 12:00:00 AM EST active Sodium Chloride 0.9 % eCW1 ([facility]) Sodium Chloride 0.9 % UNK 03/17/2020 12:00:00 AM EST active eCW1 ([facility]) 3 ML liraglutide 6 MG/ML Pen Injector [Victoza] Victoz a 18 MG/3ML Victoza 18 MG/3ML 03/17/2020 12:00:00 AM EST active Victoza 18 MG/3ML eCW1 ([facility]) 3 ML liraglutide 6 MG/ML Pen Injector [Victoza] Victoz a 18 MG/3ML Victoza 18 MG/3ML 03/17/2020 12:00:00 AM EST active Victoza 18 MG/3ML eCW1 ([facility]) Sodium Chloride 0.9 % UNK 03/17/2020 12:00:00 AM EST active Sodium Chloride 0.9 % eCW1 ([facility]) ciclopirox 80 MG/ML Topical Solution Ciclopirox 8 % Ciclopir ox 8 % 03/17/2020 12:00:00 AM EST active Ciclopir ox 8 % eCW1 ([facility]) ciclopirox 80 MG/ML Topical Solution Ciclopirox 8 % Ciclopir ox 8 % 03/17/2020 12:00:00 AM EST active Ciclopir ox 8 % eCW1 ([facility]) Sodium Chloride 0.9 % UNK 03/17/2020 12:00:00 AM EST active Sodium Chloride 0.9 % eCW1 ([facility]) ciclopirox 80 MG/ML Topical Solution Ciclopirox 8 % Ciclopir ox 8 % 03/17/2020 12:00:00 AM EST active Ciclopir ox 8 % eCW1 ([facility]) Sodium Chloride 0.9 % UNK 03/17/2020 12:00:00 AM EST active Sodium Chloride 0.9 % eCW1 ([facility]) 3 ML liraglutide 6 MG/ML Pen Injector [Victoza] Victoz a 18 MG/3ML Victoza 18 MG/3ML 03/17/2020 12:00:00 AM EST active Victoza 18 MG/3ML eCW1 ([facility]) Sodium Chloride 0.9 % UNK 03/17/2020 12:00:00 AM EST active Sodium Chloride 0.9 % eCW1 ([facility]) 3 ML liraglutide 6 MG/ML Pen Injector [Victoza] Victoz a 18 MG/3ML Victoza 18 MG/3ML 03/17/2020 12:00:00 AM EST active Victoza 18 MG/3ML eCW1 ([facility]) 3 ML liraglutide 6 MG/ML Pen Injector [Victoza] Victoz a 18 MG/3ML Victoza 18 MG/3ML 03/17/2020 12:00:00 AM EST active Victoza 18 MG/3ML eCW1 ([facility]) ciclopirox 80 MG/ML Topical Solution Ciclopirox 8 % Ciclopir ox 8 % 03/17/2020 12:00:00 AM EST active Ciclopir ox 8 % eCW1 ([facility]) ciclopirox 80 MG/ML Topical Solution Ciclopirox 8 % Ciclopir ox 8 % 03/17/2020 12:00:00 AM EST active Ciclopir ox 8 % eCW1 ([facility]) ciclopirox 80 MG/ML Topical Solution Ciclopirox 8 % Ciclopir ox 8 % 03/17/2020 12:00:00 AM EST active Ciclopir ox 8 % eCW1 ([facility]) ciclopirox 80 MG/ML Topical Solution Ciclopirox 8 % Ciclopir ox 8 % 03/17/2020 12:00:00 AM EST active Ciclopir ox 8 % eCW1 ([facility]) Sodium Chloride 0.9 % UNK 03/17/2020 12:00:00 AM EST active Sodium Chloride 0.9 % eCW1 ([facility]) Sodium Chloride 0.9 % UNK 03/17/2020 12:00:00 AM EST active Sodium Chloride 0.9 % eCW1 ([facility]) Sodium Chloride 0.9 % UNK 03/17/2020 12:00:00 AM EST active Sodium Chloride 0.9 % eCW1 ([facility]) Sodium Chloride 0.9 % UNK 03/17/2020 12:00:00 AM EST active Sodium Chloride 0.9 % eCW1 ([facility]) Sodium Chloride 0.9 % UNK 03/17/2020 12:00:00 AM EST active Sodium Chloride 0.9 % eCW1 ([facility]) Sodium Chloride 0.9 % UNK 03/17/2020 12:00:00 AM EST active Sodium Chloride 0.9 % eCW1 ([facility]) 3 ML liraglutide 6 MG/ML Pen Injector [Victoza] Victoz a 18 MG/3ML Victoza 18 MG/3ML 03/17/2020 12:00:00 AM EST active Victoza 18 MG/3ML eCW1 ([facility]) Sodium Chloride 0.9 % UNK 03/17/2020 12:00:00 AM EST active Sodium Chloride 0.9 % eCW1 ([facility]) 3 ML liraglutide 6 MG/ML Pen Injector [Victoza] Victoz a 18 MG/3ML Victoza 18 MG/3ML 03/17/2020 12:00:00 AM EST active Victoza 18 MG/3ML eCW1 ([facility]) 3 ML liraglutide 6 MG/ML Pen Injector [Victoza] Victoz a 18 MG/3ML Victoza 18 MG/3ML 03/17/2020 12:00:00 AM EST active eCW1 ([facility]) 3 ML liraglutide 6 MG/ML Pen Injector [Victoza] Victoz a 18 MG/3ML Victoza 18 MG/3ML 03/17/2020 12:00:00 AM EST active Victoza 18 MG/3ML eCW1 ([facility]) 3 ML liraglutide 6 MG/ML Pen Injector [Victoza] Victoz a 18 MG/3ML Victoza 18 MG/3ML 03/17/2020 12:00:00 AM EST active Victoza 18 MG/3ML eCW1 ([facility]) 3 ML liraglutide 6 MG/ML Pen Injector [Victoza] Victoz a 18 MG/3ML Victoza 18 MG/3ML 03/17/2020 12:00:00 AM EST active Victoza 18 MG/3ML eCW1 ([facility]) Sodium Chloride 0.9 % UNK 03/17/2020 12:00:00 AM EST active Sodium Chloride 0.9 % eCW1 ([facility]) 3 ML liraglutide 6 MG/ML Pen Injector [Victoza] Victoz a 18 MG/3ML Victoza 18 MG/3ML 03/17/2020 12:00:00 AM EST active Victoza 18 MG/3ML eCW1 ([facility]) Sodium Chloride 0.9 % UNK 03/17/2020 12:00:00 AM EST active Sodium Chloride 0.9 % eCW1 ([facility]) 3 ML liraglutide 6 MG/ML Pen Injector [Victoza] Victoz a 18 MG/3ML Victoza 18 MG/3ML 03/17/2020 12:00:00 AM EST active Victoza 18 MG/3ML eCW1 ([facility]) ciclopirox 80 MG/ML Topical Solution Ciclopirox 8 % Ciclopir ox 8 % 03/17/2020 12:00:00 AM EST active Ciclopir ox 8 % eCW1 ([facility]) 3 ML liraglutide 6 MG/ML Pen Injector [Victoza] Victoz a 18 MG/3ML Victoza 18 MG/3ML 03/17/2020 12:00:00 AM EST active Victoza 18 MG/3ML eCW1 ([facility]) Sodium Chloride 0.9 % UNK 03/17/2020 12:00:00 AM EST active Sodium Chloride 0.9 % eCW1 ([facility]) Sodium Chloride 0.9 % UNK 03/17/2020 12:00:00 AM EST active Sodium Chloride 0.9 % eCW1 ([facility]) ciclopirox 80 MG/ML Topical Solution Ciclopirox 8 % Ciclopir ox 8 % 03/17/2020 12:00:00 AM EST active Ciclopir ox 8 % eCW1 ([facility]) Sodium Chloride 0.9 % UNK 03/17/2020 12:00:00 AM EST active Sodium Chloride 0.9 % eCW1 ([facility]) ciclopirox 80 MG/ML Topical Solution Ciclopirox 8 % Ciclopir ox 8 % 03/17/2020 12:00:00 AM EST active Ciclopir ox 8 % eCW1 ([facility]) Sodium Chloride 0.9 % UNK 03/17/2020 12:00:00 AM EST active Sodium Chloride 0.9 % eCW1 ([facility]) ciclopirox 80 MG/ML Topical Solution Ciclopirox 8 % Ciclopir ox 8 % 03/17/2020 12:00:00 AM EST active Ciclopir ox 8 % eCW1 ([facility]) ciclopirox 80 MG/ML Topical Solution Ciclopirox 8 % Ciclopir ox 8 % 03/17/2020 12:00:00 AM EST active Ciclopir ox 8 % eCW1 ([facility]) 3 ML liraglutide 6 MG/ML Pen Injector [Victoza] Victoz a 18 MG/3ML Victoza 18 MG/3ML 03/17/2020 12:00:00 AM EST active Victoza 18 MG/3ML eCW1 ([facility]) 3 ML liraglutide 6 MG/ML Pen Injector [Victoza] Victoz a 18 MG/3ML Victoza 18 MG/3ML 03/17/2020 12:00:00 AM EST active Victoza 18 MG/3ML eCW1 ([facility]) ciclopirox 80 MG/ML Topical Solution Ciclopirox 8 % Ciclopir ox 8 % 03/17/2020 12:00:00 AM EST active Ciclopir ox 8 % eCW1 ([facility]) 3 ML liraglutide 6 MG/ML Pen Injector [Victoza] Victoz a 18 MG/3ML Victoza 18 MG/3ML 03/17/2020 12:00:00 AM EST active Victoza 18 MG/3ML eCW1 ([facility]) Sodium Chloride 0.9 % UNK 03/17/2020 12:00:00 AM EST active Sodium Chloride 0.9 % eCW1 ([facility]) 3 ML liraglutide 6 MG/ML Pen Injector [Victoza] Victoz a 18 MG/3ML Victoza 18 MG/3ML 03/17/2020 12:00:00 AM EST active Victoza 18 MG/3ML eCW1 ([facility]) 3 ML liraglutide 6 MG/ML Pen Injector [Victoza] Victoz a 18 MG/3ML Victoza 18 MG/3ML 03/17/2020 12:00:00 AM EST active Victoza 18 MG/3ML eCW1 ([facility]) Sodium Chloride 0.9 % UNK 03/17/2020 12:00:00 AM EST active Sodium Chloride 0.9 % eCW1 ([facility]) ciclopirox 80 MG/ML Topical Solution Ciclopirox 8 % Ciclopir ox 8 % 03/17/2020 12:00:00 AM EST active Ciclopir ox 8 % eCW1 ([facility]) Sodium Chloride 0.9 % UNK 03/17/2020 12:00:00 AM EST active Sodium Chloride 0.9 % eCW1 ([facility]) Sodium Chloride 0.9 % UNK 03/17/2020 12:00:00 AM EST active Sodium Chloride 0.9 % eCW1 ([facility]) ciclopirox 80 MG/ML Topical Solution Ciclopirox 8 % Ciclopir ox 8 % 03/17/2020 12:00:00 AM EST active Ciclopir ox 8 % eCW1 ([facility]) Sodium Chloride 0.9 % UNK 03/17/2020 12:00:00 AM EST active Sodium Chloride 0.9 % eCW1 ([facility]) ciclopirox 80 MG/ML Topical Solution Ciclopirox 8 % Ciclopir ox 8 % 03/17/2020 12:00:00 AM EST active Ciclopir ox 8 % eCW1 ([facility]) Sodium Chloride 0.9 % UNK 03/17/2020 12:00:00 AM EST active Sodium Chloride 0.9 % eCW1 ([facility]) ciclopirox 80 MG/ML Topical Solution Ciclopirox 8 % Ciclopir ox 8 % 03/17/2020 12:00:00 AM EST active Ciclopir ox 8 % eCW1 ([facility]) 3 ML liraglutide 6 MG/ML Pen Injector [Victoza] Victoz a 18 MG/3ML Victoza 18 MG/3ML 03/17/2020 12:00:00 AM EST active Victoza 18 MG/3ML eCW1 ([facility]) Sodium Chloride 0.9 % UNK 03/17/2020 12:00:00 AM EST active Sodium Chloride 0.9 % eCW1 ([facility]) ciclopirox 80 MG/ML Topical Solution Ciclopirox 8 % Ciclopir ox 8 % 03/17/2020 12:00:00 AM EST active Ciclopir ox 8 % eCW1 ([facility]) Sodium Chloride 0.9 % UNK 03/17/2020 12:00:00 AM EST active Sodium Chloride 0.9 % eCW1 ([facility]) ciclopirox 80 MG/ML Topical Solution Ciclopirox 8 % Ciclopir ox 8 % 03/17/2020 12:00:00 AM EST active Ciclopir ox 8 % eCW1 ([facility]) 3 ML liraglutide 6 MG/ML Pen Injector [Victoza] Victoz a 18 MG/3ML Victoza 18 MG/3ML 03/17/2020 12:00:00 AM EST active Victoza 18 MG/3ML eCW1 ([facility]) ciclopirox 80 MG/ML Topical Solution Ciclopirox 8 % Ciclopir ox 8 % 03/17/2020 12:00:00 AM EST active Ciclopir ox 8 % eCW1 ([facility]) 3 ML liraglutide 6 MG/ML Pen Injector [Victoza] Victoz a 18 MG/3ML Victoza 18 MG/3ML 03/17/2020 12:00:00 AM EST active Victoza 18 MG/3ML eCW1 ([facility]) Sodium Chloride 0.9 % UNK 03/17/2020 12:00:00 AM EST active Sodium Chloride 0.9 % eCW1 ([facility]) ciclopirox 80 MG/ML Topical Solution Ciclopirox 8 % Ciclopir ox 8 % 03/17/2020 12:00:00 AM EST active Ciclopir ox 8 % eCW1 ([facility]) Sodium Chloride 0.9 % UNK 03/17/2020 12:00:00 AM EST active Sodium Chloride 0.9 % eCW1 ([facility]) Sodium Chloride 0.9 % UNK 03/17/2020 12:00:00 AM EST active Sodium Chloride 0.9 % eCW1 ([facility]) ciclopirox 80 MG/ML Topical Solution Ciclopirox 8 % Ciclopir ox 8 % 03/17/2020 12:00:00 AM EST active Ciclopir ox 8 % eCW1 ([facility]) Sodium Chloride 0.9 % UNK 03/17/2020 12:00:00 AM EST active Sodium Chloride 0.9 % eCW1 ([facility]) 3 ML liraglutide 6 MG/ML Pen Injector [Victoza] Victoz a 18 MG/3ML Victoza 18 MG/3ML 03/17/2020 12:00:00 AM EST active Victoza 18 MG/3ML eCW1 ([facility]) ciclopirox 80 MG/ML Topical Solution Ciclopirox 8 % Ciclopir ox 8 % 03/17/2020 12:00:00 AM EST active Ciclopir ox 8 % eCW1 ([facility]) Sodium Chloride 0.9 % UNK 03/17/2020 12:00:00 AM EST active eCW1 ([facility]) 3 ML liraglutide 6 MG/ML Pen Injector [Victoza] Victoz a 18 MG/3ML Victoza 18 MG/3ML 03/17/2020 12:00:00 AM EST active Victoza 18 MG/3ML eCW1 ([facility]) 3 ML liraglutide 6 MG/ML Pen Injector [Victoza] Victoz a 18 MG/3ML Victoza 18 MG/3ML 03/17/2020 12:00:00 AM EST active Victoza 18 MG/3ML eCW1 ([facility]) Sodium Chloride 0.9 % UNK 03/17/2020 12:00:00 AM EST active Sodium Chloride 0.9 % eCW1 ([facility]) 3 ML liraglutide 6 MG/ML Pen Injector [Victoza] Victoz a 18 MG/3ML Victoza 18 MG/3ML 03/17/2020 12:00:00 AM EST active Victoza 18 MG/3ML eCW1 ([facility]) ciclopirox 80 MG/ML Topical Solution Ciclopirox 8 % Ciclopir ox 8 % 03/17/2020 12:00:00 AM EST active Ciclopir ox 8 % eCW1 ([facility]) 3 ML liraglutide 6 MG/ML Pen Injector [Victoza] Victoz a 18 MG/3ML Victoza 18 MG/3ML 03/17/2020 12:00:00 AM EST active Victoza 18 MG/3ML eCW1 ([facility]) 3 ML liraglutide 6 MG/ML Pen Injector [Victoza] Victoz a 18 MG/3ML Victoza 18 MG/3ML 03/17/2020 12:00:00 AM EST active Victoza 18 MG/3ML eCW1 ([facility]) ciclopirox 80 MG/ML Topical Solution Ciclopirox 8 % Ciclopir ox 8 % 03/17/2020 12:00:00 AM EST suspended Ciclo pirox 8 % eCW1 ([facility]) 3 ML liraglutide 6 MG/ML Pen Injector [Victoza] Victoz a 18 MG/3ML Victoza 18 MG/3ML 03/17/2020 12:00:00 AM EST active Victoza 18 MG/3ML eCW1 ([facility]) 3 ML liraglutide 6 MG/ML Pen Injector [Victoza] Victoz a 18 MG/3ML Victoza 18 MG/3ML 03/17/2020 12:00:00 AM EST active Victoza 18 MG/3ML eCW1 ([facility]) ciclopirox 80 MG/ML Topical Solution Ciclopirox 8 % Ciclopir ox 8 % 03/17/2020 12:00:00 AM EST active Ciclopir ox 8 % eCW1 ([facility]) ciclopirox 80 MG/ML Topical Solution Ciclopirox 8 % Ciclopir ox 8 % 03/17/2020 12:00:00 AM EST suspended Ciclo pirox 8 % eCW1 ([facility]) ciclopirox 80 MG/ML Topical Solution Ciclopirox 8 % Ciclopir ox 8 % 03/17/2020 12:00:00 AM EST active Ciclopir ox 8 % eCW1 ([facility]) ciclopirox 80 MG/ML Topical Solution Ciclopirox 8 % Ciclopir ox 8 % 03/17/2020 12:00:00 AM EST active Ciclopir ox 8 % eCW1 ([facility]) Sodium Chloride 0.9 % UNK 03/17/2020 12:00:00 AM EST active Sodium Chloride 0.9 % eCW1 ([facility]) Sodium Chloride 0.9 % UNK 03/17/2020 12:00:00 AM EST active Sodium Chloride 0.9 % eCW1 ([facility]) ciclopirox 80 MG/ML Topical Solution Ciclopirox 8 % Ciclopir ox 8 % 03/17/2020 12:00:00 AM EST suspended eCW1 ([facility]) ciclopirox 80 MG/ML Topical Solution Ciclopirox 8 % Ciclopir ox 8 % 03/17/2020 12:00:00 AM EST active Ciclopir ox 8 % eCW1 ([facility]) ciclopirox 80 MG/ML Topical Solution Ciclopirox 8 % Ciclopir ox 8 % 03/17/2020 12:00:00 AM EST active Ciclopir ox 8 % eCW1 ([facility]) ciclopirox 80 MG/ML Topical Solution Ciclopirox 8 % Ciclopir ox 8 % 03/17/2020 12:00:00 AM EST active Ciclopir ox 8 % eCW1 ([facility]) ciclopirox 80 MG/ML Topical Solution Ciclopirox 8 % Ciclopir ox 8 % 03/17/2020 12:00:00 AM EST active Ciclopir ox 8 % eCW1 ([facility]) Sodium Chloride 0.9 % UNK 03/17/2020 12:00:00 AM EST active Sodium Chloride 0.9 % eCW1 ([facility]) 3 ML liraglutide 6 MG/ML Pen Injector [Victoza] Victoz a 18 MG/3ML Victoza 18 MG/3ML 03/17/2020 12:00:00 AM EST active Victoza 18 MG/3ML eCW1 ([facility]) Sodium Chloride 0.9 % UNK 03/17/2020 12:00:00 AM EST active Sodium Chloride 0.9 % eCW1 ([facility]) Sodium Chloride 0.9 % UNK 03/17/2020 12:00:00 AM EST active eCW1 ([facility]) Sodium Chloride 0.9 % UNK 03/17/2020 12:00:00 AM EST active Sodium Chloride 0.9 % eCW1 ([facility]) ciclopirox 80 MG/ML Topical Solution Ciclopirox 8 % Ciclopir ox 8 % 03/17/2020 12:00:00 AM EST active Ciclopir ox 8 % eCW1 ([facility]) ciclopirox 80 MG/ML Topical Solution Ciclopirox 8 % Ciclopir ox 8 % 03/17/2020 12:00:00 AM EST active Ciclopir ox 8 % eCW1 ([facility]) 3 ML liraglutide 6 MG/ML Pen Injector [Victoza] Victoz a 18 MG/3ML Victoza 18 MG/3ML 03/17/2020 12:00:00 AM EST active Victoza 18 MG/3ML eCW1 ([facility]) Sodium Chloride 0.9 % UNK 03/17/2020 12:00:00 AM EST active Sodium Chloride 0.9 % eCW1 ([facility]) Sodium Chloride 0.9 % UNK 03/17/2020 12:00:00 AM EST active Sodium Chloride 0.9 % eCW1 ([facility]) 3 ML liraglutide 6 MG/ML Pen Injector [Victoza] Victoz a 18 MG/3ML Victoza 18 MG/3ML 03/17/2020 12:00:00 AM EST active Victoza 18 MG/3ML eCW1 ([facility]) ciclopirox 80 MG/ML Topical Solution Ciclopirox 8 % Ciclopir ox 8 % 03/17/2020 12:00:00 AM EST active Ciclopir ox 8 % eCW1 ([facility]) 3 ML liraglutide 6 MG/ML Pen Injector [Victoza] Victoz a 18 MG/3ML Victoza 18 MG/3ML 03/17/2020 12:00:00 AM EST active Victoza 18 MG/3ML eCW1 ([facility]) ciclopirox 80 MG/ML Topical Solution Ciclopirox 8 % Ciclopir ox 8 % 03/17/2020 12:00:00 AM EST suspended Ciclo pirox 8 % eCW1 ([facility]) 3 ML liraglutide 6 MG/ML Pen Injector [Victoza] Victoz a 18 MG/3ML Victoza 18 MG/3ML 03/17/2020 12:00:00 AM EST active Victoza 18 MG/3ML eCW1 ([facility]) Sodium Chloride 0.9 % UNK 03/17/2020 12:00:00 AM EST active Sodium Chloride 0.9 % eCW1 ([facility]) Sodium Chloride 0.9 % UNK 03/17/2020 12:00:00 AM EST active Sodium Chloride 0.9 % eCW1 ([facility]) ciclopirox 80 MG/ML Topical Solution Ciclopirox 8 % Ciclopir ox 8 % 03/17/2020 12:00:00 AM EST active Ciclopir ox 8 % eCW1 ([facility]) Sodium Chloride 0.9 % UNK 03/17/2020 12:00:00 AM EST active Sodium Chloride 0.9 % eCW1 ([facility]) Sodium Chloride 0.9 % UNK 03/17/2020 12:00:00 AM EST active Sodium Chloride 0.9 % eCW1 ([facility]) 3 ML liraglutide 6 MG/ML Pen Injector [Victoza] Victoz a 18 MG/3ML Victoza 18 MG/3ML 03/17/2020 12:00:00 AM EST active Victoza 18 MG/3ML eCW1 ([facility]) Sodium Chloride 0.9 % UNK 03/17/2020 12:00:00 AM EST active Sodium Chloride 0.9 % eCW1 ([facility]) ciclopirox 80 MG/ML Topical Solution Ciclopirox 8 % Ciclopir ox 8 % 03/17/2020 12:00:00 AM EST active Ciclopir ox 8 % eCW1 ([facility]) 3 ML liraglutide 6 MG/ML Pen Injector [Victoza] Victoz a 18 MG/3ML Victoza 18 MG/3ML 03/17/2020 12:00:00 AM EST active Victoza 18 MG/3ML eCW1 ([facility]) ciclopirox 80 MG/ML Topical Solution Ciclopirox 8 % Ciclopir ox 8 % 03/17/2020 12:00:00 AM EST active Ciclopir ox 8 % eCW1 ([facility]) 3 ML liraglutide 6 MG/ML Pen Injector [Victoza] Victoz a 18 MG/3ML Victoza 18 MG/3ML 03/17/2020 12:00:00 AM EST active Victoza 18 MG/3ML eCW1 ([facility]) Sodium Chloride 0.9 % UNK 03/17/2020 12:00:00 AM EST active Sodium Chloride 0.9 % eCW1 ([facility]) ciclopirox 80 MG/ML Topical Solution Ciclopirox 8 % Ciclopir ox 8 % 03/17/2020 12:00:00 AM EST active Ciclopir ox 8 % eCW1 ([facility]) ciclopirox 80 MG/ML Topical Solution Ciclopirox 8 % Ciclopir ox 8 % 03/17/2020 12:00:00 AM EST active Ciclopir ox 8 % eCW1 ([facility]) Sodium Chloride 0.9 % UNK 03/17/2020 12:00:00 AM EST active Sodium Chloride 0.9 % eCW1 ([facility]) 3 ML liraglutide 6 MG/ML Pen Injector [Victoza] Victoz a 18 MG/3ML Victoza 18 MG/3ML 03/17/2020 12:00:00 AM EST active Victoza 18 MG/3ML eCW1 ([facility]) 3 ML liraglutide 6 MG/ML Pen Injector [Victoza] Victoz a 18 MG/3ML Victoza 18 MG/3ML 03/17/2020 12:00:00 AM EST active Victoza 18 MG/3ML eCW1 ([facility]) 3 ML liraglutide 6 MG/ML Pen Injector [Victoza] Victoz a 18 MG/3ML Victoza 18 MG/3ML 03/17/2020 12:00:00 AM EST active Victoza 18 MG/3ML eCW1 ([facility]) Sodium Chloride 0.9 % UNK 03/17/2020 12:00:00 AM EST active Sodium Chloride 0.9 % eCW1 ([facility]) ciclopirox 80 MG/ML Topical Solution Ciclopirox 8 % Ciclopir ox 8 % 03/17/2020 12:00:00 AM EST active Ciclopir ox 8 % eCW1 ([facility]) ciclopirox 80 MG/ML Topical Solution Ciclopirox 8 % Ciclopir ox 8 % 03/17/2020 12:00:00 AM EST active Ciclopir ox 8 % eCW1 ([facility]) Sodium Chloride 0.9 % UNK 03/17/2020 12:00:00 AM EST active Sodium Chloride 0.9 % eCW1 ([facility]) 3 ML liraglutide 6 MG/ML Pen Injector [Victoza] Victoz a 18 MG/3ML Victoza 18 MG/3ML 03/17/2020 12:00:00 AM EST active Victoza 18 MG/3ML eCW1 ([facility]) 3 ML liraglutide 6 MG/ML Pen Injector [Victoza] Victoz a 18 MG/3ML Victoza 18 MG/3ML 03/17/2020 12:00:00 AM EST active Victoza 18 MG/3ML eCW1 ([facility]) ciclopirox 80 MG/ML Topical Solution Ciclopirox 8 % Ciclopir ox 8 % 03/17/2020 12:00:00 AM EST active Ciclopir ox 8 % eCW1 ([facility]) ciclopirox 80 MG/ML Topical Solution Ciclopirox 8 % Ciclopir ox 8 % 03/17/2020 12:00:00 AM EST active Ciclopir ox 8 % eCW1 ([facility]) Sodium Chloride 0.9 % UNK 03/17/2020 12:00:00 AM EST active Sodium Chloride 0.9 % eCW1 ([facility]) ciclopirox 80 MG/ML Topical Solution Ciclopirox 8 % Ciclopir ox 8 % 03/17/2020 12:00:00 AM EST active Ciclopir ox 8 % eCW1 ([facility]) Sodium Chloride 0.9 % UNK 03/17/2020 12:00:00 AM EST active Sodium Chloride 0.9 % eCW1 ([facility]) 3 ML liraglutide 6 MG/ML Pen Injector [Victoza] Victoz a 18 MG/3ML Victoza 18 MG/3ML 03/17/2020 12:00:00 AM EST active Victoza 18 MG/3ML eCW1 ([facility]) Sodium Chloride 0.9 % UNK 03/17/2020 12:00:00 AM EST active Sodium Chloride 0.9 % eCW1 ([facility]) 3 ML liraglutide 6 MG/ML Pen Injector [Victoza] Victoz a 18 MG/3ML Victoza 18 MG/3ML 03/17/2020 12:00:00 AM EST active Victoza 18 MG/3ML eCW1 ([facility]) ciclopirox 80 MG/ML Topical Solution Ciclopirox 8 % Ciclopir ox 8 % 03/17/2020 12:00:00 AM EST active Ciclopir ox 8 % eCW1 ([facility]) ciclopirox 80 MG/ML Topical Solution Ciclopirox 8 % Ciclopir ox 8 % 03/17/2020 12:00:00 AM EST active Ciclopir ox 8 % eCW1 ([facility]) ciclopirox 80 MG/ML Topical Solution Ciclopirox 8 % Ciclopir ox 8 % 03/17/2020 12:00:00 AM EST active Ciclopir ox 8 % eCW1 ([facility]) ciclopirox 80 MG/ML Topical Solution Ciclopirox 8 % Ciclopir ox 8 % 03/17/2020 12:00:00 AM EST active Ciclopir ox 8 % eCW1 ([facility]) 3 ML liraglutide 6 MG/ML Pen Injector [Victoza] Victoz a 18 MG/3ML Victoza 18 MG/3ML 03/17/2020 12:00:00 AM EST active Victoza 18 MG/3ML eCW1 ([facility]) 3 ML liraglutide 6 MG/ML Pen Injector [Victoza] Victoz a 18 MG/3ML Victoza 18 MG/3ML 03/17/2020 12:00:00 AM EST active Victoza 18 MG/3ML eCW1 ([facility]) 3 ML liraglutide 6 MG/ML Pen Injector [Victoza] Victoz a 18 MG/3ML Victoza 18 MG/3ML 03/17/2020 12:00:00 AM EST active Victoza 18 MG/3ML eCW1 ([facility]) 3 ML liraglutide 6 MG/ML Pen Injector [Victoza] Victoz a 18 MG/3ML Victoza 18 MG/3ML 03/17/2020 12:00:00 AM EST active Victoza 18 MG/3ML eCW1 ([facility]) 3 ML liraglutide 6 MG/ML Pen Injector [Victoza] Victoz a 18 MG/3ML Victoza 18 MG/3ML 03/17/2020 12:00:00 AM EST active Victoza 18 MG/3ML eCW1 ([facility]) ciclopirox 80 MG/ML Topical Solution Ciclopirox 8 % Ciclopir ox 8 % 03/17/2020 12:00:00 AM EST active Ciclopir ox 8 % eCW1 ([facility]) 3 ML liraglutide 6 MG/ML Pen Injector [Victoza] Victoz a 18 MG/3ML Victoza 18 MG/3ML 03/17/2020 12:00:00 AM EST active Victoza 18 MG/3ML eCW1 ([facility]) 3 ML liraglutide 6 MG/ML Pen Injector [Victoza] Victoz a 18 MG/3ML Victoza 18 MG/3ML 03/17/2020 12:00:00 AM EST active Victoza 18 MG/3ML eCW1 ([facility]) 3 ML liraglutide 6 MG/ML Pen Injector [Victoza] Victoz a 18 MG/3ML Victoza 18 MG/3ML 03/17/2020 12:00:00 AM EST active Victoza 18 MG/3ML eCW1 ([facility]) 3 ML liraglutide 6 MG/ML Pen Injector [Victoza] Victoz a 18 MG/3ML Victoza 18 MG/3ML 03/17/2020 12:00:00 AM EST active Victoza 18 MG/3ML eCW1 ([facility]) ciclopirox 80 MG/ML Topical Solution Ciclopirox 8 % Ciclopir ox 8 % 03/17/2020 12:00:00 AM EST active Ciclopir ox 8 % eCW1 ([facility]) 3 ML liraglutide 6 MG/ML Pen Injector [Victoza] Victoz a 18 MG/3ML Victoza 18 MG/3ML 03/17/2020 12:00:00 AM EST active Victoza 18 MG/3ML eCW1 ([facility]) 3 ML liraglutide 6 MG/ML Pen Injector [Victoza] Victoz a 18 MG/3ML Victoza 18 MG/3ML 03/17/2020 12:00:00 AM EST active Victoza 18 MG/3ML eCW1 ([facility]) Sodium Chloride 0.9 % UNK 03/17/2020 12:00:00 AM EST active Sodium Chloride 0.9 % eCW1 ([facility]) ciclopirox 80 MG/ML Topical Solution Ciclopirox 8 % Ciclopir ox 8 % 03/17/2020 12:00:00 AM EST active Ciclopir ox 8 % eCW1 ([facility]) Sodium Chloride 0.9 % UNK 03/17/2020 12:00:00 AM EST active Sodium Chloride 0.9 % eCW1 ([facility]) Sodium Chloride 0.9 % UNK 03/17/2020 12:00:00 AM EST active Sodium Chloride 0.9 % eCW1 ([facility]) ciclopirox 80 MG/ML Topical Solution Ciclopirox 8 % Ciclopir ox 8 % 03/17/2020 12:00:00 AM EST active Ciclopir ox 8 % eCW1 ([facility]) ciclopirox 80 MG/ML Topical Solution Ciclopirox 8 % Ciclopir ox 8 % 03/17/2020 12:00:00 AM EST active Ciclopir ox 8 % eCW1 ([facility]) Sodium Chloride 0.9 % UNK 03/17/2020 12:00:00 AM EST active Sodium Chloride 0.9 % eCW1 ([facility]) ciclopirox 80 MG/ML Topical Solution Ciclopirox 8 % Ciclopir ox 8 % 03/17/2020 12:00:00 AM EST active Ciclopir ox 8 % eCW1 ([facility]) Sodium Chloride 0.9 % UNK 03/17/2020 12:00:00 AM EST active Sodium Chloride 0.9 % eCW1 ([facility]) ciclopirox 80 MG/ML Topical Solution Ciclopirox 8 % Ciclopir ox 8 % 03/17/2020 12:00:00 AM EST active Ciclopir ox 8 % eCW1 ([facility]) Sodium Chloride 0.9 % UNK 03/17/2020 12:00:00 AM EST active Sodium Chloride 0.9 % eCW1 ([facility]) ciclopirox 80 MG/ML Topical Solution Ciclopirox 8 % Ciclopir ox 8 % 03/17/2020 12:00:00 AM EST active Ciclopir ox 8 % eCW1 ([facility]) ciclopirox 80 MG/ML Topical Solution Ciclopirox 8 % Ciclopir ox 8 % 03/17/2020 12:00:00 AM EST active Ciclopir ox 8 % eCW1 ([facility]) ciclopirox 80 MG/ML Topical Solution Ciclopirox 8 % Ciclopir ox 8 % 03/17/2020 12:00:00 AM EST active Ciclopir ox 8 % eCW1 ([facility]) 3 ML liraglutide 6 MG/ML Pen Injector [Victoza] Victoz a 18 MG/3ML Victoza 18 MG/3ML 03/17/2020 12:00:00 AM EST active eCW1 ([facility]) ciclopirox 80 MG/ML Topical Solution Ciclopirox 8 % Ciclopir ox 8 % 03/17/2020 12:00:00 AM EST active Ciclopir ox 8 % eCW1 ([facility]) Sodium Chloride 0.9 % UNK 03/17/2020 12:00:00 AM EST active Sodium Chloride 0.9 % eCW1 ([facility]) 3 ML liraglutide 6 MG/ML Pen Injector [Victoza] Victoz a 18 MG/3ML Victoza 18 MG/3ML 03/17/2020 12:00:00 AM EST active Victoza 18 MG/3ML eCW1 ([facility]) 3 ML liraglutide 6 MG/ML Pen Injector [Victoza] Victoz a 18 MG/3ML Victoza 18 MG/3ML 03/17/2020 12:00:00 AM EST active Victoza 18 MG/3ML eCW1 ([facility]) 0.6 mg/0.1 mL (18 mg/3 mL) 03/17/2020 12:00:00 AM EST pen in jector 6 INJECT 0.6MG UNDER THE SKIN DAILY FOR 1 WEEK THEN INCREASE TO 1.2MG DAILY INJECT 0.6MG UNDER THE SKIN DAILY FOR 1 WEEK THEN INCREASE TO 1.2MG DAILY SOLD: 03/17/2020 [facility] ciclopirox 80 MG/ML Topical Solution Ciclopirox 8 % Ciclopir ox 8 % 03/17/2020 12:00:00 AM EST active Ciclopir ox 8 % eCW1 ([facility]) ciclopirox 80 MG/ML Topical Solution Ciclopirox 8 % Ciclopir ox 8 % 03/17/2020 12:00:00 AM EST active Ciclopir ox 8 % eCW1 ([facility]) 3 ML liraglutide 6 MG/ML Pen Injector [Victoza] Victoz a 18 MG/3ML Victoza 18 MG/3ML 03/17/2020 12:00:00 AM EST active Victoza 18 MG/3ML eCW1 ([facility]) Sodium Chloride 0.9 % UNK 03/17/2020 12:00:00 AM EST active Sodium Chloride 0.9 % eCW1 ([facility]) Sodium Chloride 0.9 % UNK 03/17/2020 12:00:00 AM EST active Sodium Chloride 0.9 % eCW1 ([facility]) ciclopirox 80 MG/ML Topical Solution Ciclopirox 8 % Ciclopir ox 8 % 03/17/2020 12:00:00 AM EST active Ciclopir ox 8 % eCW1 ([facility]) 0.6 mg/0.1 mL (18 mg/3 mL) 03/17/2020 12:00:00 AM EST pen in jector 6 INJECT 0.6MG UNDER THE SKIN DAILY FOR 1 WEEK THEN INCREASE TO 1.2MG DAILY INJECT 0.6MG UNDER THE SKIN DAILY FOR 1 WEEK THEN INCREASE TO 1.2MG DAILY SOLD: 04/09/2020 [facility] Sodium Chloride 0.9 % UNK 03/17/2020 12:00:00 AM EST active Sodium Chloride 0.9 % eCW1 ([facility]) Sodium Chloride 0.9 % UNK 03/17/2020 12:00:00 AM EST active Sodium Chloride 0.9 % eCW1 ([facility]) Sodium Chloride 0.9 % UNK 03/17/2020 12:00:00 AM EST active Sodium Chloride 0.9 % eCW1 ([facility]) ciclopirox 80 MG/ML Topical Solution Ciclopirox 8 % Ciclopir ox 8 % 03/17/2020 12:00:00 AM EST active Ciclopir ox 8 % eCW1 ([facility]) ciclopirox 80 MG/ML Topical Solution Ciclopirox 8 % Ciclopir ox 8 % 03/17/2020 12:00:00 AM EST active Ciclopir ox 8 % eCW1 ([facility]) 3 ML liraglutide 6 MG/ML Pen Injector [Victoza] Victoz a 18 MG/3ML Victoza 18 MG/3ML 03/17/2020 12:00:00 AM EST active Victoza 18 MG/3ML eCW1 ([facility]) 3 ML liraglutide 6 MG/ML Pen Injector [Victoza] Victoz a 18 MG/3ML Victoza 18 MG/3ML 03/17/2020 12:00:00 AM EST active Victoza 18 MG/3ML eCW1 ([facility]) ciclopirox 80 MG/ML Topical Solution Ciclopirox 8 % Ciclopir ox 8 % 03/17/2020 12:00:00 AM EST suspended Ciclo pirox 8 % eCW1 ([facility]) ciclopirox 80 MG/ML Topical Solution Ciclopirox 8 % Ciclopir ox 8 % 03/17/2020 12:00:00 AM EST active Ciclopir ox 8 % eCW1 ([facility]) Sodium Chloride 0.9 % UNK 03/17/2020 12:00:00 AM EST active Sodium Chloride 0.9 % eCW1 ([facility]) 3 ML liraglutide 6 MG/ML Pen Injector [Victoza] Victoz a 18 MG/3ML Victoza 18 MG/3ML 03/17/2020 12:00:00 AM EST active Victoza 18 MG/3ML eCW1 ([facility]) Sodium Chloride 0.9 % UNK 03/17/2020 12:00:00 AM EST active Sodium Chloride 0.9 % eCW1 ([facility]) ciclopirox 80 MG/ML Topical Solution Ciclopirox 8 % Ciclopir ox 8 % 03/17/2020 12:00:00 AM EST active Ciclopir ox 8 % eCW1 ([facility]) 3 ML liraglutide 6 MG/ML Pen Injector [Victoza] Victoz a 18 MG/3ML Victoza 18 MG/3ML 03/17/2020 12:00:00 AM EST active Victoza 18 MG/3ML eCW1 ([facility]) ciclopirox 80 MG/ML Topical Solution Ciclopirox 8 % Ciclopir ox 8 % 03/17/2020 12:00:00 AM EST active Ciclopir ox 8 % eCW1 ([facility]) Sodium Chloride 0.9 % UNK 03/17/2020 12:00:00 AM EST active Sodium Chloride 0.9 % eCW1 ([facility]) Sodium Chloride 0.9 % UNK 03/17/2020 12:00:00 AM EST active Sodium Chloride 0.9 % eCW1 ([facility]) ciclopirox 80 MG/ML Topical Solution Ciclopirox 8 % Ciclopir ox 8 % 03/17/2020 12:00:00 AM EST active Ciclopir ox 8 % eCW1 ([facility]) Sodium Chloride 0.9 % UNK 03/17/2020 12:00:00 AM EST active Sodium Chloride 0.9 % eCW1 ([facility]) ciclopirox 80 MG/ML Topical Solution Ciclopirox 8 % Ciclopir ox 8 % 03/17/2020 12:00:00 AM EST active Ciclopir ox 8 % eCW1 ([facility]) Sodium Chloride 0.9 % UNK 03/17/2020 12:00:00 AM EST active Sodium Chloride 0.9 % eCW1 ([facility]) Sodium Chloride 0.9 % UNK 03/17/2020 12:00:00 AM EST active Sodium Chloride 0.9 % eCW1 ([facility]) 3 ML liraglutide 6 MG/ML Pen Injector [Victoza] Victoz a 18 MG/3ML Victoza 18 MG/3ML 03/17/2020 12:00:00 AM EST active Victoza 18 MG/3ML eCW1 ([facility]) Sodium Chloride 0.9 % UNK 03/17/2020 12:00:00 AM EST active Sodium Chloride 0.9 % eCW1 ([facility]) 3 ML liraglutide 6 MG/ML Pen Injector [Victoza] Victoz a 18 MG/3ML Victoza 18 MG/3ML 03/17/2020 12:00:00 AM EST active Victoza 18 MG/3ML eCW1 ([facility]) 3 ML liraglutide 6 MG/ML Pen Injector [Victoza] Victoz a 18 MG/3ML Victoza 18 MG/3ML 03/17/2020 12:00:00 AM EST active Victoza 18 MG/3ML eCW1 ([facility]) 3 ML liraglutide 6 MG/ML Pen Injector [Victoza] Victoz a 18 MG/3ML Victoza 18 MG/3ML 03/17/2020 12:00:00 AM EST active Victoza 18 MG/3ML eCW1 ([facility]) 3 ML liraglutide 6 MG/ML Pen Injector [Victoza] Victoz a 18 MG/3ML Victoza 18 MG/3ML 03/17/2020 12:00:00 AM EST active Victoza 18 MG/3ML eCW1 ([facility]) 3 ML liraglutide 6 MG/ML Pen Injector [Victoza] Victoz a 18 MG/3ML Victoza 18 MG/3ML 03/17/2020 12:00:00 AM EST active Victoza 18 MG/3ML eCW1 ([facility]) ciclopirox 80 MG/ML Topical Solution Ciclopirox 8 % Ciclopir ox 8 % 03/17/2020 12:00:00 AM EST active e CW1 ([facility]) Sodium Chloride 0.9 % UNK 03/17/2020 12:00:00 AM EST active Sodium Chloride 0.9 % eCW1 ([facility]) 3 ML liraglutide 6 MG/ML Pen Injector [Victoza] Victoz a 18 MG/3ML Victoza 18 MG/3ML 03/17/2020 12:00:00 AM EST active Victoza 18 MG/3ML eCW1 ([facility]) ciclopirox 80 MG/ML Topical Solution Ciclopirox 8 % Ciclopir ox 8 % 03/17/2020 12:00:00 AM EST active Ciclopir ox 8 % eCW1 ([facility]) ciclopirox 80 MG/ML Topical Solution Ciclopirox 8 % Ciclopir ox 8 % 03/17/2020 12:00:00 AM EST suspended Ciclo pirox 8 % eCW1 ([facility]) ciclopirox 80 MG/ML Topical Solution Ciclopirox 8 % Ciclopir ox 8 % 03/17/2020 12:00:00 AM EST active Ciclopir ox 8 % eCW1 ([facility]) 3 ML liraglutide 6 MG/ML Pen Injector [Victoza] Victoz a 18 MG/3ML Victoza 18 MG/3ML 03/17/2020 12:00:00 AM EST active Victoza 18 MG/3ML eCW1 ([facility]) Sodium Chloride 0.9 % UNK 03/17/2020 12:00:00 AM EST active Sodium Chloride 0.9 % eCW1 ([facility]) ciclopirox 80 MG/ML Topical Solution Ciclopirox 8 % Ciclopir ox 8 % 03/17/2020 12:00:00 AM EST suspended Ciclo pirox 8 % eCW1 ([facility]) 3 ML liraglutide 6 MG/ML Pen Injector [Victoza] Victoz a 18 MG/3ML Victoza 18 MG/3ML 03/17/2020 12:00:00 AM EST active Victoza 18 MG/3ML eCW1 ([facility]) 3 ML liraglutide 6 MG/ML Pen Injector [Victoza] Victoz a 18 MG/3ML Victoza 18 MG/3ML 03/17/2020 12:00:00 AM EST active Victoza 18 MG/3ML eCW1 ([facility]) Sodium Chloride 0.9 % UNK 03/17/2020 12:00:00 AM EST active Sodium Chloride 0.9 % eCW1 ([facility]) 3 ML liraglutide 6 MG/ML Pen Injector [Victoza] Victoz a 18 MG/3ML Victoza 18 MG/3ML 03/17/2020 12:00:00 AM EST active Victoza 18 MG/3ML eCW1 ([facility]) ciclopirox 80 MG/ML Topical Solution Ciclopirox 8 % Ciclopir ox 8 % 03/17/2020 12:00:00 AM EST active Ciclopir ox 8 % eCW1 ([facility]) 1 gram 03/03/2020 12:00:00 AM EST tablet [...] ONCE A DAY SOLD: 03/31/2020 [facility] 31 gauge x 5/16" 03/03/2020 12:00:00 AM EST needle 30 USE 1 NEEDLE UNDER THE SKIN ONCE A DAY USE 1 NEEDLE UNDER THE SKIN ONCE A DAY SOLD: 05/26/2020 [facility] 31 gauge x 5/16" 03/03/2020 12:00:00 AM EST needle 30 USE 1 NEEDLE UNDER THE SKIN ONCE A DAY USE 1 NEEDLE UNDER THE SKIN ONCE A DAY SOLD: 03/03/2020 [facility] 31 gauge x 5/16" 03/03/2020 12:00:00 AM EST needle 30 USE 1 NEEDLE UNDER THE SKIN ONCE A DAY USE 1 NEEDLE UNDER THE SKIN ONCE A DAY SOLD: 04/28/2020 [facility] 1 gram 03/03/2020 12:00:00 AM EST tablet 60 TAKE ONE TABLET BY MOUTH TWICE A DAY WITH MEALS TAKE ONE TABLET BY MOUTH TWICE A DAY WITH MEALS SOLD: 06/23/2020 [facility] 1 gram 03/03/2020 12:00:00 AM EST tablet 60 TAKE ONE TABLET BY MOUTH TWICE A DAY WITH MEALS TAKE ONE TABLET BY MOUTH TWICE A DAY WITH MEALS SOLD: 03/03/2020 [facility] 1 gram 03/03/2020 12:00:00 AM EST tablet 60 TAKE ONE TABLET BY MOUTH TWICE A DAY WITH MEALS TAKE ONE TABLET BY MOUTH TWICE A DAY WITH MEALS SOLD: 03/31/2020 [facility] 1 gram 03/03/2020 [...] UNDER THE SKIN ONCE A DAY SOLD: 06/23/2020 [facility] 25 mcg (1,000 unit) 02/25/2020 12:00:00 AM EST tablet 30 TAKE 1 TABLET BY MOUTH EVERY DAY TAKE 1 TABLET BY MOUTH EVERY DAY SOLD: 02/25/2020 [facility] 25 mcg (1,000 unit) 02/25/2020 12:00:00 AM EST tablet 30 TAKE 1 TABLET BY MOUTH EVERY DAY TAKE 1 TABLET BY MOUTH EVERY DAY SOLD: 07/14/2020 [facility] 25 mcg (1,000 unit) 02/25/2020 12:00:00 AM EST tablet 30 TAKE 1 TABLET BY MOUTH EVERY DAY TAKE 1 TABLET BY MOUTH EVERY DAY SOLD: 06/16/2020 [facility] 25 mcg (1,000 unit) 02/25/2020 12:00:00 AM EST tablet 30 TAKE 1 TABLET BY MOUTH EVERY DAY TAKE 1 TABLET BY MOUTH EVERY DAY SOLD: 05/19/2020 [facility] 25 mcg (1,000 unit) 02/25/2020 12:00:00 AM EST tablet 30 TAKE 1 TABLET BY MOUTH EVERY DAY TAKE 1 TABLET BY MOUTH EVERY DAY SOLD: 10/09/2020 [facility] 25 mcg (1,000 unit) 02/25/2020 12:00:00 AM EST tablet 30 TAKE 1 TABLET BY MOUTH EVERY DAY TAKE 1 TABLET BY MOUTH EVERY DAY SOLD: 04/21/2020 [facility] 25 mcg (1,000 unit) 02/25/2020 12:00:00 AM EST tablet 30 TAKE 1 TABLET BY MOUTH EVERY DAY TAKE 1 TABLET BY MOUTH EVERY DAY SOLD: 03/24/2020 [facility] 25 mcg (1,000 unit) 02/25/2020 12:00:00 AM EST tablet 30 TAKE 1 TABLET BY MOUTH EVERY DAY TAKE 1 TABLET BY MOUTH EVERY DAY SOLD: 09/11/2020 [facility] mesalamine 1000 MG Rectal Suppository Mesalamine 02/17/2020 12:00:00 AM EST RECTAL active MEDENT ([facility], ) 50 mg 02/17/2020 12:00:00 AM EST [...] DAY SOLD: 03/15/2020 [facility] 10 mg 02/16/2020 12:00:00 AM [...] BY MOUTH FOUR TIMES A DAY SOLD: 06/06/2020 [facility] 10 mg 02/10/2020 12:00:00 AM EDT tablet 90 TAKE ONE TABLET BY MOUTH THREE TIMES A DAY NEEDED TAKE ONE TABLET BY MOUTH THREE TIMES A DAY NEEDED S OLD: 04/06/2020 [facility] 10 mg 02/10/2020 12:00:00 AM [...] DAY NEEDED S OLD: 03/10/2020 [facility] 0.01 % (0.1 mg/gram) 02/04/2020 [...] {tablet} active Doxycycline Monohydrate 100 MG eCW1 ([facility]) 100 mg 01/24/2020 12:00:00 AM EDT tablet 10 TAKE ONE TABLET BY MOUTH TWICE A DAY FOR 5 DAYS TAKE ONE TABLET BY MOUTH TWICE A DAY FOR 5 DAYS SOLD: 01/24/2020 [facility] Doxycycline Monohydrate 100 MG Oral Tablet Doxycycline Monoh ydrate 100 MG 01/24/2020 12:00:00 AM EDT 1.0 {tablet} suspende d Doxycycline Monohydrate 100 MG eCW1 ([facility]) Doxycycline Monohydrate 100 MG Oral Tablet Doxycycline Monoh ydrate 100 MG 01/24/2020 12:00:00 AM EDT 1.0 {tablet} suspende d Doxycycline Monohydrate 100 MG eCW1 ([facility]) Doxycycline Monohydrate 100 MG Oral Tablet Doxycycline Monoh ydrate 100 MG 01/24/2020 12:00:00 AM EDT 1.0 {tablet} suspende d Doxycycline Monohydrate 100 MG eCW1 ([facility]) Doxycycline Monohydrate 100 MG Oral Tablet Doxycycline Monoh ydrate 100 MG 01/24/2020 12:00:00 AM EDT 1.0 {tablet} active Doxycycline Monohydrate 100 MG eCW1 ([facility]) Doxycycline Monohydrate 100 MG Oral Tablet Doxycycline Monoh ydrate 100 MG 01/24/2020 12:00:00 AM EDT 1.0 {tablet} active Doxycycline Monohydrate 100 MG eCW1 ([facility]) Doxycycline Monohydrate 100 MG Oral Tablet Doxycycline Monoh ydrate 100 MG 01/24/2020 12:00:00 AM EDT 1.0 {tablet} suspende d Doxycycline Monohydrate 100 MG eCW1 ([facility]) Doxycycline Monohydrate 100 MG Oral Tablet Doxycycline Monoh ydrate 100 MG 01/24/2020 12:00:00 AM EDT 1.0 {tablet} suspende d Doxycycline Monohydrate 100 MG eCW1 ([facility]) Doxycycline Monohydrate 100 MG Oral Tablet Doxycycline Monoh ydrate 100 MG 01/24/2020 12:00:00 AM EDT 1.0 {tablet} active Doxycycline Monohydrate 100 MG eCW1 ([facility]) Doxycycline Monohydrate 100 MG Oral Tablet Doxycycline Monoh ydrate 100 MG 01/24/2020 12:00:00 AM EDT 1.0 {tablet} suspende d Doxycycline Monohydrate 100 MG eCW1 ([facility]) Doxycycline Monohydrate 100 MG Oral Tablet Doxycycline Monoh ydrate 100 MG 01/24/2020 12:00:00 AM EDT 1.0 {tablet} suspende d Doxycycline Monohydrate 100 MG eCW1 ([facility]) 4 mg/2 mL 01/19/2020 12:00:00 AM EDT solution 120 1 VIAL TWO TIMES A DAY AT LEAST 8 HOURS APART DIRECTED 1 VIAL TWO TIMES A DAY AT LEAST 8 HOURS APART DIRECTED SOLD: 03/14/2020 [facility] 80 mg 12/09/2019 12:00:00 AM EDT tablet,chewable [...] DIRECTED WITH MEALS SOLD: 03/01/2020 [facility] 10 gram/15 mL 11/01/2019 12:00:00 AM EDT solution 1419 TAKE 15ML BY MOUTH THREE TIMES A DAY TAKE 15ML BY MOUTH THREE TIMES A DAY SOLD: 02/22/2020 [facility] 10 gram/15 mL 11/01/2019 12:00:00 AM EDT solution 1419 TAKE 15ML BY MOUTH THREE TIMES A DAY TAKE 15ML BY MOUTH THREE TIMES A DAY SOLD: 01/25/2020 [facility] 12 % 10/15/2019 12:00:00 AM EDT cream 140 APPLY 1 APPLICATION TO FEET TWO TIMES A DAY EXTERNALLY APPLY 1 APPLICATION TO FEET TWO TIMES A DAY EXTERNALLY SOLD: 03/04/2020 [facility] 12 % 10/15/2019 12:00:00 AM EDT cream 140 APPLY 1 APPLICATION TO FEET TWO TIMES A DAY EXTERNALLY APPLY 1 APPLICATION TO FEET TWO TIMES A DAY EXTERNALLY SOLD: 02/06/2020 [facility] ALCOHOL ANTISEPTIC PADS 10/08/2019 12:00:00 [...] TIMES A DAY DIRECTED NEEDED SOLD: 01/26/2020 [facility] ALCOHOL ANTISEPTIC PADS 10/08/2019 12:00:00 [...] FOUR TIMES A DAY DIRECTED NEEDED SOLD: 06/07/2020 [facility] ALCOHOL ANTISEPTIC PADS 10/08/2019 12:00:00 AM EDT pads, med icated 100 TEST BLOOD SUGAR FOUR TIMES A DAY DIRECTED NEEDED TEST BLOOD SUGAR FOUR TIMES A DAY DIRECTED NEEDED SOLD: 04/02/2020 [facility] 100 unit/mL (3 mL) 09/21/2019 [...] IN THE MORNING SOLD: 03/06/2020 [facility] 100 unit/mL (3 mL) 09/21/2019 12:00:00 AM EDT insulin pen 15 INJECT 35 UNITS UNDER THE SKIN IN THE MORNING INJECT 35 UNITS UNDER THE SKIN IN THE MORNING SOLD: 01/28/2020 [facility] 1 gram 09/17/2019 12:00:00 AM EDT tablet 60 TAKE ONE TABLET BY MOUTH TWICE A DAY TAKE ONE TABLET BY MOUTH TWICE A DAY SOLD: 02/04/2020 [facility] 31 gauge x 5/16" 09/17/2019 12:00:00 AM EDT needle 30 USE DIRECTED DAILY USE DIRECTED DAILY SOLD: 02/04/2020 [facility] 0.1 % 07/27/2019 12:00:00 AM EDT cream 15 APPLY THIN LAYER TO RED AREAS ON FINGERS TWICE DAILY APPLY THIN LAYER TO RED AREAS ON FINGERS TWICE DAILY S OLD: 07/25/2020 [facility] 0.1 % 07/16/2019 12:00:00 AM EDT cream 15 APPLY THIN LAYER TO RED AREAS ON FINGERS TWICE A DAY APPLY THIN LAYER TO RED AREAS ON FINGERS TWICE A DAY S OLD: 04/24/2020 [facility] 0.1 % 07/16/2019 12:00:00 AM EDT cream 15 APPLY THIN LAYER TO RED AREAS ON FINGERS TWICE A DAY APPLY THIN LAYER TO RED AREAS ON FINGERS TWICE A DAY S OLD: 02/13/2020 [facility] 33 gauge 06/25/2019 12:00:00 AM EDT misc 100 USE DIRECTED FOUR TIMES A DAY NEEDED USE DIRECTED FOUR TIMES A DAY NEEDED SOLD: 02/11/2020 [facility] BLOOD SUGAR DIAGNOSTIC 06/25/2019 12:00:00 AM EDT strip 100 TEST FOUR TIMES A DAY NEEDED TEST FOUR TIMES A DAY NEEDED SOLD: 02/10/2020 [facility] 25 mcg (1,000 unit) 06/25/2019 12:00:00 AM EDT tablet 30 TAKE 1 TABLET BY MOUTH EVERY DAY TAKE 1 TABLET BY MOUTH EVERY DAY SOLD: 01/28/2020 [facility] 33 gauge 06/25/2019 12:00:00 AM EDT misc 100 USE DIRECTED FOUR TIMES A DAY NEEDED USE DIRECTED FOUR TIMES A DAY NEEDED SOLD: 03/04/2020 [facility] Insurance Providers Payer name Policy type / Coverage type Policy ID Covered libertarian ID Covered libertarian's relationship to joe Policy Joe Plan Information [place] Medigap Part B [id number] Self BS [employer] Hmo Blue Option Medigap Part B [id number] Self BS [facility] Hmo Blue Option Medigap Part B [id number] Self [facility] Hmo Commercial [id number] Self [facility] Community Plan Commercial [id number] Self [facility] [id number] [facility] [id number] UNHC COMMUNITY PLAN MCDHMO UNHC COMMUNITY PLAN MCDHMO [id number] Self [facility] UN[facility] COMMUNITY PLAN MCDHMO UNHC COMMUNITY PLAN MCDHMO [id number] [facility] I [id number] Self [id number] [facility] I [id number] Self [id number] [facility] [id number] Self [id number] [facility] Community Plan Commercial [id number] Self [facility] Hmo Commercial [id number] Self 1 [id number] [facility] Hmo Commercial [id number] Self 1 [id number] [facility] Hmo Commercial [id number] Self [id number] [facility]LY [facility] COMMUNITY PLAN [facility] [id number] SP [id number] [facility] Hmo Commercial [id number] Self [id number] [facility] PLAN [facility] [id number] SP [id number] [facility] Hmo Commercial [id number] Self [id number] [facility] Hmo Commercial [id number] Self [id number] [facility] H[facility] Commercial [id number] Self 1 [id number] [facility] H[facility] Commercial [id number] Self [facility] Hmo Commercial [id number] Self 1 [id number] [facility] Hmo Commercial [id number] Self [id number] [facility] Hmo Commercial [id number] Self [id number] [facility] Hmo Commercial [id number] Self 1 [id number] [facility] H[facility] Commercial [id number] Self [id number] [facility] COMMUNITY PLAN MCDO [id number] SP [id number] [facility] COMMUNITY PLAN MCDHMO [id number] SP [id number] [facility] COMMUNITY PLAN MCDHMO [id number] SP [id number] [facility] COMMUNITY PLAN MCDHMO [id number] SP [id number] [facility] COMMUNITY PLAN MCDHMO [id number] SP [id number] [facility] COMMUNITY PLAN MCDHMO [id number] SP [id number] [facility] COMMUNITY PLAN MCDHMO [id number] SP [id number] [facility] COMMUNITY PLAN MCDHMO [id number] SP [id number] [facility] COMMUNITY PLAN MCDHMO [id number] SP [id number] [facility] COMMUNITY PLAN MCDO [id number] SP [id number] ANSI-Medicaid [id number] ANSI-Medicaid [id number] ANSI-Medicaid [id number] ANSI-Medicaid [id number] ANSI-Medicaid [id number] ANSI-Medicaid [id number] ANSI-Medicaid [id number] ANSI-Medicaid [id number] ANSI-Medicaid [id number] ANSI-Medicaid [id number] ANSI-Medicaid [id number] ANSI-Medicaid [id number] ANSI-Medicaid [id number] ANSI-Medicaid [id number] ANSI-Medicaid [id number] ANSI-Medicaid [id number] ANSI-Medicaid [id number] ANSI-Medicaid [id number] ANSI-Medicaid [id number] ANSI-Medicaid [id number] ANSI-Medicaid [id number] ANSI-Medicaid [id number] ANSI-Medicaid [id number] ANSI-Medicaid [id number] ANSI-Medicaid [id number] ANSI-Medicaid [id number] ANSI-Medicaid [id number] ANSI-Medicaid [id number] ANSI-Medicaid [id number] ANSI-Medicaid [id number] ANSI-Medicaid [id number] ANSI-Medicaid [id number] ANSI-Medicaid [id number] ANSI-Medicaid [id number] ANSI-Medicaid [id number] ANSI-Medicaid [id number] ANSI-Medicaid [id number] ANSI-Medicaid [id number] ANSI-Medicaid [id number] ANSI-Medicaid [id number] ANSI-Medicaid [id number] ANSI-Medicaid [id number] ANSI-Medicaid [id number] ANSI-Medicaid [id number] ANSI-Medicaid [id number] ANSI-Medicaid [id number] ANSI-Medicaid [id number] ANSI-Medicaid [id number] ANSI-Medicaid [id number] ANSI-Medicaid [id number] ANSI-Medicaid [id number] ANSI-Medicaid [id number] ANSI-Medicaid [id number] ANSI-Medicaid [id number] ANSI-Medicaid [id number] ANSI-Medicaid [id number] ANSI-Medicaid [id number] ANSI-Medicaid [id number] [facility] [id number] ANSI-Medicaid [id number] ANSI-Medicaid [id number] ANSI-Medicaid [id number] ANSI-Medicaid [id number] ANSI-Medicaid [id number] ANSI-Medicaid [id number] ANSI-Medicaid [id number] ANSI-Medicaid [id number] ANSI-Medicaid [id number] ANSI-Medicaid [id number] ANSI-Medicaid [id number] ANSI-Medicaid [id number] ANSI-Medicaid [id number] ANSI-Medicaid [id number] ANSI-Medicaid [id number] ANSI-Medicaid [id number] ANSI-Medicaid [id number] ANSI-Medicaid [id number] ANSI-Medicaid [id number] ANSI-Medicaid [id number] ANSI-Medicaid [id number] ANSI-Medicaid [id number] ANSI-Medicaid [id number] ANSI-Medicaid [id number] ANSI-Medicaid [id number] ANSI-Medicaid [id number] ANSI-Medicaid [id number] ANSI-Medicaid [id number] [employer] MCDHMO [id number] SP [id number] [employer] COMM[employer] PLAN MCDHMO [id number] SP [id number] Medicaid [place] Medigap Part B [id number] Self UN[employer] COMMUNITY PLAN MCDHMO [id number] SP [id number] UN[employer] COMMUNITY PLAN MCDHMO [id number] SP [id number] UN[employer] COMMUNITY PLAN MCDHMO [id number] SP [id number] UNHC COMMUNITY PLAN MCDHMO [id number] SP [id number] [facility] Shi/MCR Medigap Part B [id number] Self Medicaid [place] Medicaid 3750 Self [facility] [facility]-Shi Commercial [id number] Self BLUE CROSS [place] PLAN [id number] SP [id number] EXCELLUS BCBS P [id number] S [id number] [id number] MVP MCDHMO [id number] SP [id number] HMO BLUE [id number] SP [id number] UNHC COMMUNITY PLAN MCDHMO [id number] SP [id number] [place] [id number] SP [id number] [facility] O [id number] S [id number] MVP Health Plan [facility] Other 0 [id number] Self 0 UNHC COMMUNITY PLAN MCDHMO [id number] SP [id number] MVP MCDHMO [id number] SP [id number] [facility] [id number] SP [id number] [place] [id number] SP [id number] SP [facility](API HEALTHCAREID) O [id number] S [id number] [facility] [id number] SP [id number] MEDICAID [id number] SP [id number] [facility] [id number] SP [id number] MEDICAID [id number] SP [id number] BCBS [id number] Blue Cross/Bl ue Shield [id number] Medicaid [id number] Medicaid [id number] [facility] [id number] Preferred Provider Organization (PPO) [id number] ANS-Medicaid [id number] ANSI-Medicaid [id number] ANSI-Medicaid [id number] ANSI-Medicaid [id number] ANSI-Medicaid [id number] ANSI-Medicaid [id number] ANSI-Medicaid [id number] ANSI-Medicaid [id number] ANSI-Medicaid [id number] ANSI-Medicaid [id number] ANSI-Medicaid [id number] ANSI-Medicaid [id number] ANSI-Medicaid [id number] ANSI-Medicaid [id number] [facility]-Medicaid [id number] [facility]-Medicaid [id number] [facility]-Medicaid [id number] [facility]-Medicaid [id number] [facility]-Medicaid [id number] Problems, Conditions, and Diagnoses Code Display Name Description Problem Type Effective Dates Data Source(s) E11.65 [id number] Type 2 diabetes mellitus with hyperglycem ia Problem 01/10/2021 12:00:00 AM EDT eCW1 ([facility]) L84 Corns and callosities Corns and callosities Problem 03/30/2020 12:00:00 AM EST MEDENT ([facility] B35.1 Onychomycosis Onychomycosis Problem 03/30/2020 12:00:00 AM EST [facility] ([facility] G89.29 [id number] Other chronic pain Problem 03/28/2020 12:00: 00 AM EST eCW1 ([facility]) 379.21 Vitreous Disorders Degeneration Vitreous Disorders Deg eneration Problem 03/21/2020 12:00:00 AM EST JUAN DANIEL (Jhony Lowery MD [facility]) 368.12 Transient Visual Loss Transient Visual Loss Problem 03/21/2020 12:00:00 AM EST JUAN DANIEL (Jhony Lowery MD [facility]) 375.15 Dry Eye Syndrome Dry Eye Syndrome Problem 03/21/2020 12 :00:00 AM EST JUAN DANIEL (Jhony Lowery MD [facility]) 366.16 Cataract Senile Nuclear Cataract Senile Nuclear Proble m 03/21/2020 12:00:00 AM EST JUAN DANIEL (Jhony Lowery MD [facility]) [id number] Long-term current use of insulin (situat ion) Taking Medication For Diabetes Long-term Use of Insulin Problem 03/21/2020 12:00:00 AM EST JUAN DANIEL (Jhony Lowery MD [facility]) 250.00 Diabetes Mellitus Type 2 Without Complic ation Diabetes Mellitus Type 2 Without Complication Problem 03/21/2020 12:00:00 AM EST JUAN DANIEL (Champ Lowery MD [facility]) 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, ) Surgeries/Procedures Procedure Description Date Indications Data Source(s) Imm: Flublok Quadrivalent 18 years & older 0.5mL IM Influenz a 01/30/2021 12:00:00 AM EDT eCW1 ([facility]) OFFICE OUTPATIENT VISIT 10 MINUTES 01/29/2021 12:00:00 AM EDT [facility] ([facility] OFFICE OUTPATIENT VISIT 10 MINUTES 10/06/2020 12:00:00 AM EDT [facility] ([facility] OFFICE OUTPATIENT VISIT 10 MINUTES 06/29/2020 12:00:00 AM EDT [facility] ([facility] Pain Procedure Log 06/20/2020 12:00:00 AM EST eCW1 ([facility]) Completion of procedural visit when meets criteria 06/06/2020 12:00:00 AM EST eCW1 ([facility]) Injection, ceftriaxone sodium, per 250 mg 06/01/2020 1 2:00:00 AM EST eCW1 ([facility]) Injection, ceftriaxone sodium, per 250 mg 05/31/2020 1 2:00:00 AM EST eCW1 ([facility]) Injection, ceftriaxone sodium, per 250 mg 05/30/2020 1 2:00:00 AM EST eCW1 ([facility]) Injection, ceftriaxone sodium, per 250 mg 05/29/2020 1 2:00:00 AM EST eCW1 ([facility]) Injection, ceftriaxone sodium, per 250 mg 05/26/2020 1 2:00:00 AM EST eCW1 ([facility]) PROCTOSGMDSC RGD DX W/WO COLLJ SPEC BR/WA SPX 03/30/20 20 12:00:00 AM EST MEDENT ([facility]) Surgical / procedural history Scalp Alvaro or [...] AM EST JUAN DANIEL (Jhony Lowery MD [facility]) Medical Eye Exam Medical Eye Exam 03/21/2020 12:00:00 AM EST JUAN DANIEL (Jhony Lowery MD [facility]) Sigmoidoscopy, Flexible;Diagnostic W/Or W/O Collection Of Sp ecime 02/17/2020 12:00:00 AM EST ISAI ([facility] YONATAN ruvalcaba) Results ID Date Data Source [id number] 01/09/2021 09:58:00 PM EDT [facility] Name Value Range Interpretation Code Description Data Yun rce(s) Supporting Document(s) SARS coronavirus 2 RNA [Presence] in Res piratory specimen by MONIQUE with probe detection NEGATIVE [facility] This lab was ordered by [facility] a nd reported by [facility]. ID Date Data Source [id number] 12/27/2020 11:50:00 AM EDT [facility] Name Value Range Interpretation Code Description Data Yun rce(s) Supporting Document(s) SARS CORONAVIRUS 2 RDRP GENE:PRTHR:PT:RESPIRATORY:ORD: PROBE.AMP.TAR Presumpt Neg [facility] This lab was ordered by [facility] and [place] by [facility]. ID Date Data Source [id number] 12/22/2020 07:59:00 PM EDT [facility] Name Value Range Interpretation Code Description Data Yun rce(s) Supporting Document(s) SARS coronavirus 2 RNA [Presence] in Res piratory specimen by MONIQUE with probe detection NEGATIVE [facility] This lab was ordered by [facility] a nd reported by [facility]. ID Date Data Source [id number] 12/11/2020 07:50:00 AM EDT [facility] Name Value Range Interpretation Code Description Data Yun rce(s) Supporting Document(s) SARS Coronavirus 2 RdRp gene Presence Respiratory Spec imen MONIQUE Probe Detection Presumpt Neg [facility] This lab was ordered by [facility] and [place] by [facility]. ID Date Data Source MAGNESIUM LEVEL 10/30/2020 12:00:00 AM EDT eCW1 ([facility]) Name Value Range Interpretation Code Description Data Yun rce(s) Supporting Document(s) 1.7 1.8-2.4 MAGNESIUM LEVEL [facility] ([facility]) MAGNESIUM LEVEL ID Date Data Source [id number] 10/30/2020 12:00:00 AM EDT eCW1 ([facility]) Name Value Range Interpretation Code Description Data Yun rce(s) Supporting Document(s) Hemoglobin A1c/Hemoglobin.total in Blood 9.2 HEMOGLOBIN A1c eCW1 ([facility]) ID Date Data Source Comprehensive Metabolic Profile (CMP) 10/30/2020 12:00:00 AM EDT eCW1 ([facility]) Name Value Range Interpretation Code Description Data Yun rce(s) Supporting Document(s) 0.50 0.55-1.30 CREATININE FOR GFR eCW1 ([facility]) 15 7-18 BLOOD UREA NITROGEN eCW1 ([facility]) 178 70-100 GLUCOSE, FASTING eCW1 ([facility]) > 60.0 >45 GLOMERULAR FILTRATION RATE eCW 1 ([facility]) 103 98-107 CHLORIDE LEVEL eCW1 ([facility]) 137 136-145 SODIUM LEVEL eCW1 ([facility]) 4.2 3.5-5.1 POTASSIUM SERUM eCW1 ([facility]) 9.9 8.8-10.2 CALCIUM LEVEL eCW1 ([facility]) 26 21-32 CARBON DIOXIDE LEVEL eCW1 ([facility]) 48 7-37 AST/SGOT eCW1 ([facility]) 42 12-78 ALT/SGPT eCW1 ([facility]) 101 45-117 ALKALINE PHOSPHATASE eCW1 ([facility]) 0.2 0.2-1.0 BILIRUBIN,TOTAL eCW1 ([facility]) 7.9 6.4-8.2 TOTAL PROTEIN eCW1 ([facility]) 3.3 3.2-5.2 ALBUMIN eCW1 ([facility]) 0.7 1.2-2.2 ALBUMIN/GLOBULIN RATIO eCW1 ([facility]) ID Date Data Source CBC - Complete Blood Count 10/30/2020 12:00:00 AM EDT eCW1 ( [facility]) Name Value Range Interpretation Code Description Data Yun rce(s) Supporting Document(s) 12.1 12.0-15.5 HEMOGLOBIN eCW1 ([facility]) 3.80 4.00-5.40 RED BLOOD COUNT eCW1 ([facility]) 5.7 4.0-10.0 WHITE BLOOD COUNT eCW1 ([facility]) 31.8 32.0-36.5 MEAN CORPUSCULAR HGB CONC eCW1 ([facility]) 38.1 36.0-47.0 HEMATOCRIT eCW1 ([facility]) 100.3 80.0-96.0 MEAN CORPUSCULAR VOLUME e CW1 ([facility]) 31.8 27.0-33.0 MEAN CORPUSCULAR HEMOGLOB IN eCW1 ([facility]) 212 150-450 PLATELET COUNT, AUTOMATED eCW1 ([facility]) 13.7 11.5-14.5 RED CELL DISTRIBUTION WID TH eCW1 ([facility]) ID Date Data Source [id number] 09/28/2020 01:05:00 PM EDT [facility] Name Value Range Interpretation Code Description Data Yun rce(s) Supporting Document(s) SARS coronavirus 2 RNA [Presence] in Res piratory specimen by MONIQUE with probe detection NEGATIVE [facility] This lab was ordered by [facility] a nd reported by [facility]. ID Date Data Source URINE CULTURE 09/04/2020 12:00:00 AM EDT W1 ([facility]) Name Value Range Interpretation Code Description Data Yun rce(s) Supporting Document(s) Laboratory studies (set) URINE CULTU RE eCW1 ([facility]) ID Date Data Source UA URINALYSIS 09/04/2020 12:00:00 AM EDT eCW1 ([facility]) Name Value Range Interpretation Code Description Data Yun rce(s) Supporting Document(s) UA URINALYSIS eCW1 ([facility]) ID Date Data Source CBC with Differential 08/31/2020 12:00:00 AM EDT W1 ([facility]) Name Value Range Interpretation Code Description Data Yun rce(s) Supporting Document(s) 3.66 4.00-5.40 RED BLOOD COUNT eCW1 ([facility]) 4.9 4.0-10.0 WHITE BLOOD COUNT eCW1 ([facility]) 11.8 12.0-15.5 HEMOGLOBIN eCW1 ([facility]) 36.6 36.0-47.0 HEMATOCRIT eCW1 ([facility]) 32.2 27.0-33.0 MEAN CORPUSCULAR HEMOGLOB IN eCW1 ([facility]) 100.0 80.0-96.0 MEAN CORPUSCULAR VOLUME e CW1 ([facility]) 203 150-450 PLATELET COUNT, AUTOMATED eCW1 ([facility]) 32.2 32.0-36.5 MEAN CORPUSCULAR HGB CONC eCW1 ([facility]) 13.4 11.5-14.5 RED CELL DISTRIBUTION WID TH eCW1 ([facility]) ID Date Data Source RENAL PROFILE 08/14/2020 12:00:00 AM EDT eCW1 ([facility]) Name Value Range Interpretation Code Description Data Yun rce(s) Supporting Document(s) 213 70-100 GLUCOSE, FASTING eCW1 ([facility]) > 60.0 >51 GLOMERULAR FILTRATION RATE eCW 1 ([facility]) 0.46 0.55-1.30 CREATININE FOR GFR eCW1 ([facility]) 10 7-18 BLOOD UREA NITROGEN eCW1 ([facility]) 137 136-145 SODIUM LEVEL eCW1 ([facility]) 3.9 3.5-5.1 POTASSIUM SERUM eCW1 ([facility]) 104 98-107 CHLORIDE LEVEL eCW1 ([facility]) 26 21-32 CARBON DIOXIDE LEVEL eCW1 ([facility]) 10.2 8.5-10.1 CALCIUM LEVEL eCW1 ([facility]) 3.1 2.5-4.9 PHOSPHORUS LEVEL eCW1 ([facility]) 3.2 3.2-5.2 ALBUMIN eCW1 ([facility]) ID Date Data Source [id number] 07/19/2020 05:00:00 PM EDT [facility] Name Value Range Interpretation Code Description Data Yun rce(s) Supporting Document(s) SARS-CoV-2 (COVID 19) NEGATIVE - SARS-CoV-2 (COVID19) [facility] This lab was ordered by [facility] a nd reported by [facility]. ID Date Data Source [id number] 06/01/2020 01:45:00 PM EST [facility] Name Value Range Interpretation Code Description Data Yun rce(s) Supporting Document(s) SARS coronavirus 2 RNA Not Detected [facility] This lab was ordered by [facility] and reported by [facility]. ID Date Data Source [id number] 02/12/2020 09:30:00 AM EDT [facility] Name Value Range Interpretation Code Description Data Yun rce(s) Supporting Document(s) SARS coronavirus 2 RNA [facility] This lab was ordered by [facility] and reported by [facility]. Procedure Social History Code Duration Value Status Description Data Source(s ) Smoking 03/06/2021 12:00:00 AM EST Never Smoker completed Never S moker eCW1 ([facility]) Smoking 03/06/2021 12:00:00 AM EST Never Smoker completed Never S moker eCW1 ([facility]) Smoking 03/06/2021 12:00:00 AM EST Never Smoker completed Never S moker eCW1 ([facility]) Smoking 03/01/2021 12:00:00 AM EST Never Smoker completed Never S moker eCW1 ([facility]) Smoking 03/01/2021 12:00:00 AM EST Never Smoker completed Never S moker eCW1 ([facility]) Smoking 02/16/2021 12:00:00 AM EDT Never Smoker completed Never S moker eCW1 ([facility]) Smoking 02/16/2021 12:00:00 AM EDT Never Smoker completed Never S moker eCW1 ([facility]) Smoking 02/02/2021 12:00:00 AM EDT Never Smoker completed Never S moker eCW1 ([facility]) Smoking 02/02/2021 12:00:00 AM EDT Never Smoker completed Never S moker eCW1 ([facility]) Smoking 02/02/2021 12:00:00 AM EDT Never Smoker completed Never S moker eCW1 ([facility]) Smoking 02/02/2021 12:00:00 AM EDT Never Smoker completed Never S moker eCW1 ([facility]) Smoking 02/02/2021 12:00:00 AM EDT Never Smoker completed Never S moker eCW1 ([facility]) Smoking 02/02/2021 12:00:00 AM EDT Never Smoker completed Never S moker eCW1 ([facility]) Smoking 02/02/2021 12:00:00 AM EDT Never Smoker completed Never S moker eCW1 ([facility]) Smoking 02/02/2021 12:00:00 AM EDT Never Smoker completed Never S moker eCW1 ([facility]) Smoking 02/02/2021 12:00:00 AM EDT Never Smoker completed Never S moker eCW1 ([facility]) Smoking 01/31/2021 12:00:00 AM EDT Never Smoker completed Never S moker eCW1 ([facility]) Smoking 01/28/2021 12:00:00 AM EDT Never Smoker completed Never S moker eCW1 ([facility]) Smoking 01/26/2021 12:00:00 AM EDT Never Smoker completed Never S moker eCW1 ([facility]) Smoking 01/26/2021 12:00:00 AM EDT Never Smoker completed Never S moker eCW1 ([facility]) Smoking 01/20/2021 12:00:00 AM EDT Never Smoker completed Never S moker eCW1 ([facility]) Smoking 01/16/2021 12:00:00 AM EDT Never Smoker completed Never S moker eCW1 ([facility]) Smoking 12/21/2020 12:00:00 AM EDT Never Smoker completed Never S moker eCW1 ([facility]) Smoking 12/21/2020 12:00:00 AM EDT Never Smoker completed Never S moker eCW1 ([facility]) Smoking 12/21/2020 12:00:00 AM EDT Never Smoker completed Never S moker eCW1 ([facility]) Smoking 12/21/2020 12:00:00 AM EDT Never Smoker completed Never S moker eCW1 ([facility]) Smoking 12/21/2020 12:00:00 AM EDT Never Smoker completed Never S moker eCW1 ([facility]) Smoking 12/21/2020 12:00:00 AM EDT Never Smoker completed Never S moker eCW1 ([facility]) Smoking 11/15/2020 12:00:00 AM EDT Never Smoker completed Never S moker eCW1 ([facility]) Smoking 11/15/2020 12:00:00 AM EDT Never Smoker completed Never S moker eCW1 ([facility]) Smoking 11/15/2020 12:00:00 AM EDT Never Smoker completed Never S moker eCW1 ([facility]) Smoking 11/15/2020 12:00:00 AM EDT Never Smoker completed Never S moker eCW1 ([facility]) Smoking 11/15/2020 12:00:00 AM EDT Never Smoker completed Never S moker eCW1 ([facility]) Smoking 11/15/2020 12:00:00 AM EDT Never Smoker completed Never S moker eCW1 ([facility]) Smoking 11/15/2020 12:00:00 AM EDT Never Smoker completed Never S moker eCW1 ([facility]) Smoking 11/15/2020 12:00:00 AM EDT Never Smoker completed Never S moker eCW1 ([facility]) Smoking 11/15/2020 12:00:00 AM EDT Never Smoker completed Never S moker eCW1 ([facility]) Smoking 11/15/2020 12:00:00 AM EDT Never Smoker completed Never S moker eCW1 ([facility]) Smoking 11/15/2020 12:00:00 AM EDT Never Smoker completed Never S moker eCW1 ([facility]) Smoking 11/15/2020 12:00:00 AM EDT Never Smoker completed Never S moker eCW1 ([facility]) Smoking 11/15/2020 12:00:00 AM EDT Never Smoker completed Never S moker eCW1 ([facility]) Smoking 11/15/2020 12:00:00 AM EDT Never Smoker completed Never S moker eCW1 ([facility]) Smoking 11/13/2020 12:00:00 AM EDT Never Smoker completed Never S moker eCW1 ([facility]) Smoking 11/02/2020 12:00:00 AM EDT Never Smoker completed Never S moker eCW1 ([facility]) Smoking 11/02/2020 12:00:00 AM EDT Never Smoker completed Never S moker eCW1 ([facility]) Smoking 11/02/2020 12:00:00 AM EDT Never Smoker completed Never S moker eCW1 ([facility]) Smoking 11/02/2020 12:00:00 AM EDT Never Smoker completed Never S moker eCW1 ([facility]) Smoking 11/02/2020 12:00:00 AM EDT Never Smoker completed Never S moker eCW1 ([facility]) Smoking 10/30/2020 12:00:00 AM EDT Never Smoker completed Never S moker eCW1 ([facility]) Smoking 10/30/2020 12:00:00 AM EDT Never Smoker completed Never S moker eCW1 ([facility]) Smoking 10/30/2020 12:00:00 AM EDT Never Smoker completed Never S moker eCW1 ([facility]) Smoking 10/26/2020 12:00:00 AM EDT Never Smoker completed Never S moker eCW1 ([facility]) Smoking 10/23/2020 12:00:00 AM EDT Never Smoker completed Never S moker eCW1 ([facility]) Smoking 10/23/2020 12:00:00 AM EDT Never Smoker completed Never S moker eCW1 ([facility]) Smoking 10/18/2020 12:00:00 AM EDT Never Smoker completed Never S moker eCW1 ([facility]) Smoking 10/18/2020 12:00:00 AM EDT Never Smoker completed Never S moker eCW1 ([facility]) Smoking 10/18/2020 12:00:00 AM EDT Never Smoker completed Never S moker eCW1 ([facility]) Smoking 10/10/2020 12:00:00 AM EDT Never Smoker completed Never S moker eCW1 ([facility]) Smoking 09/14/2020 12:00:00 AM EDT Never Smoker completed Never S moker eCW1 ([facility]) Smoking 09/14/2020 12:00:00 AM EDT Never Smoker completed Never S moker eCW1 ([facility]) Smoking 09/14/2020 12:00:00 AM EDT Never Smoker completed Never S moker eCW1 ([facility]) Smoking 09/14/2020 12:00:00 AM EDT Never Smoker completed Never S moker eCW1 ([facility]) Smoking 09/14/2020 12:00:00 AM EDT Never Smoker completed Never S moker eCW1 ([facility]) Smoking 09/14/2020 12:00:00 AM EDT Never Smoker completed Never S moker eCW1 ([facility]) Smoking 09/14/2020 12:00:00 AM EDT Never Smoker completed Never S moker eCW1 ([facility]) Smoking 09/04/2020 12:00:00 AM EDT Never Smoker completed Never S moker eCW1 ([facility]) Smoking 09/04/2020 12:00:00 AM EDT Never Smoker completed Never S moker eCW1 ([facility]) Smoking 09/04/2020 12:00:00 AM EDT Never Smoker completed Never S moker eCW1 ([facility]) Smoking 09/04/2020 12:00:00 AM EDT Never Smoker completed Never S moker eCW1 ([facility]) Smoking 09/04/2020 12:00:00 AM EDT Never Smoker completed Never S moker eCW1 ([facility]) Smoking 08/17/2020 12:00:00 AM EDT Never Smoker completed Never S moker eCW1 ([facility]) Smoking 08/17/2020 12:00:00 AM EDT Never Smoker completed Never S moker eCW1 ([facility]) Smoking 08/17/2020 12:00:00 AM EDT Never Smoker completed Never S moker eCW1 ([facility]) Smoking 08/17/2020 12:00:00 AM EDT Never Smoker completed Never S moker eCW1 ([facility]) Smoking 08/17/2020 12:00:00 AM EDT Never Smoker completed Never S moker eCW1 ([facility]) Smoking 08/15/2020 12:00:00 AM EDT Never Smoker completed Never S moker eCW1 ([facility]) Smoking 08/15/2020 12:00:00 AM EDT Never Smoker completed Never S moker eCW1 ([facility]) Smoking 08/15/2020 12:00:00 AM EDT Never Smoker completed Never S moker eCW1 ([facility]) Smoking 07/28/2020 12:00:00 AM EDT Never Smoker completed Never S moker eCW1 ([facility]) Smoking 07/28/2020 12:00:00 AM EDT Never Smoker completed Never S moker eCW1 ([facility]) Smoking 07/28/2020 12:00:00 AM EDT Never Smoker completed Never S moker eCW1 ([facility]) Smoking 07/28/2020 12:00:00 AM EDT Never Smoker completed Never S moker eCW1 ([facility]) Smoking 07/28/2020 12:00:00 AM EDT Never Smoker completed Never S moker eCW1 ([facility]) Smoking 07/28/2020 12:00:00 AM EDT Never Smoker completed Never S moker eCW1 ([facility]) Smoking 07/28/2020 12:00:00 AM EDT Never Smoker completed Never S moker eCW1 ([facility]) Smoking 07/28/2020 12:00:00 AM EDT Never Smoker completed Never S moker eCW1 ([facility]) Smoking 07/28/2020 12:00:00 AM EDT Never Smoker completed Never S moker eCW1 ([facility]) Smoking 07/28/2020 12:00:00 AM EDT Never Smoker completed Never S moker eCW1 ([facility]) Smoking 07/28/2020 12:00:00 AM EDT Never Smoker completed Never S moker eCW1 ([facility]) Smoking 06/29/2020 12:00:00 AM EDT Never Smoker completed Never S moker eCW1 ([facility]) Smoking 06/29/2020 12:00:00 AM EDT Never Smoker completed Never S moker eCW1 ([facility]) Smoking 06/29/2020 12:00:00 AM EDT Never Smoker completed Never S moker eCW1 ([facility]) Smoking 06/29/2020 12:00:00 AM EDT Never Smoker completed Never S moker eCW1 ([facility]) Smoking 06/29/2020 12:00:00 AM EDT Never Smoker completed Never S moker eCW1 ([facility]) Smoking 06/29/2020 12:00:00 AM EDT Never Smoker completed Never S moker eCW1 ([facility]) Smoking 06/21/2020 12:00:00 AM EST Never Smoker completed Never S moker eCW1 ([facility]) Smoking 06/21/2020 12:00:00 AM EST Never Smoker completed Never S moker eCW1 ([facility]) Smoking 06/21/2020 12:00:00 AM EST Never Smoker completed Never S moker eCW1 ([facility]) Smoking 06/20/2020 12:00:00 AM EST Never Smoker completed Never S moker eCW1 ([facility]) Smoking 06/20/2020 12:00:00 AM EST Never Smoker completed Never S moker eCW1 ([facility]) Smoking 06/05/2020 12:00:00 AM EST Never Smoker completed Never S moker eCW1 ([facility]) Smoking 06/05/2020 12:00:00 AM EST Never Smoker completed Never S moker eCW1 ([facility]) Smoking 06/05/2020 12:00:00 AM EST Never Smoker completed Never S moker eCW1 ([facility]) Smoking 06/05/2020 12:00:00 AM EST Never Smoker completed Never S moker eCW1 ([facility]) Smoking 06/05/2020 12:00:00 AM EST Never Smoker completed Never S moker eCW1 ([facility]) Smoking 06/05/2020 12:00:00 AM EST Never Smoker completed Never S moker eCW1 ([facility]) Smoking 05/26/2020 12:00:00 AM EST Never Smoker completed Never S moker eCW1 ([facility]) Smoking 05/26/2020 12:00:00 AM EST Never Smoker completed Never S moker eCW1 ([facility]) Smoking 05/26/2020 12:00:00 AM EST Never Smoker completed Never S moker eCW1 ([facility]) Smoking 05/26/2020 12:00:00 AM EST Never Smoker completed Never S moker eCW1 ([facility]) Smoking 05/26/2020 12:00:00 AM EST Never Smoker completed Never S moker eCW1 ([facility]) Smoking 05/26/2020 12:00:00 AM EST Never Smoker completed Never S moker eCW1 ([facility]) Smoking 05/26/2020 12:00:00 AM EST Never Smoker completed Never S moker eCW1 ([facility]) Smoking 05/22/2020 12:00:00 AM EST Never Smoker completed Never S moker eCW1 ([facility]) Smoking 05/11/2020 12:00:00 AM EST Never Smoker completed Never S moker eCW1 ([facility]) Smoking 05/11/2020 12:00:00 AM EST Never Smoker completed Never S moker eCW1 ([facility]) Smoking 04/12/2020 12:00:00 AM EST Never Smoker completed Never S moker eCW1 ([facility]) Smoking 04/12/2020 12:00:00 AM EST Never Smoker completed Never S moker eCW1 ([facility]) Smoking 04/12/2020 12:00:00 AM EST Never Smoker completed Never S moker eCW1 ([facility]) Smoking 04/12/2020 12:00:00 AM EST Never Smoker completed Never S moker eCW1 ([facility]) Smoking 04/12/2020 12:00:00 AM EST Never Smoker completed Never S moker eCW1 ([facility]) Smoking 04/12/2020 12:00:00 AM EST Never Smoker completed Never S moker eCW1 ([facility]) Smoking 04/12/2020 12:00:00 AM EST Never Smoker completed Never S moker eCW1 ([facility]) Smoking 04/12/2020 12:00:00 AM EST Never Smoker completed Never S moker eCW1 ([facility]) Smoking 04/12/2020 12:00:00 AM EST Never Smoker completed Never S moker eCW1 ([facility]) Smoking 04/12/2020 12:00:00 AM EST Never Smoker completed Never S moker eCW1 ([facility]) Smoking 04/12/2020 12:00:00 AM EST Never Smoker completed Never S moker eCW1 ([facility]) Smoking 04/12/2020 12:00:00 AM EST Never Smoker completed Never S moker eCW1 ([facility]) Smoking 04/12/2020 12:00:00 AM EST Never Smoker completed Never S moker eCW1 ([facility]) Smoking 04/12/2020 12:00:00 AM EST Never Smoker completed Never S moker eCW1 ([facility]) Smoking 04/12/2020 12:00:00 AM EST Never Smoker completed Never S moker eCW1 ([facility]) Smoking 04/12/2020 12:00:00 AM EST Never Smoker completed Never S moker eCW1 ([facility]) Smoking 04/12/2020 12:00:00 AM EST Never Smoker completed Never S moker eCW1 ([facility]) Smoking 03/28/2020 12:00:00 AM EST Never Smoker completed Never S moker eCW1 ([facility]) Smoking 03/28/2020 12:00:00 AM EST Never Smoker completed Never S moker eCW1 ([facility]) Smoking 03/28/2020 12:00:00 AM EST Never Smoker completed Never S moker eCW1 ([facility]) Smoking 03/28/2020 12:00:00 AM EST Never Smoker completed Never S moker eCW1 ([facility]) Smoking 03/28/2020 12:00:00 AM EST Never Smoker completed Never S moker eCW1 ([facility]) Smoking 03/28/2020 12:00:00 AM EST Never Smoker completed Never S moker eCW1 ([facility]) Smoking 03/21/2020 10:24:52 AM EST Never smoked tobacco (findi ng) completed Never smoked tobacco (finding) JUAN DANIEL (Jhony Lowery MD [facility]) Smoking 03/20/2020 12:00:00 AM EST Never Smoker completed Never S moker eCW1 ([facility]) Smoking 03/20/2020 12:00:00 AM EST Never Smoker completed Never S moker eCW1 ([facility]) Smoking 03/20/2020 12:00:00 AM EST Never Smoker completed Never S moker eCW1 ([facility]) Smoking 03/20/2020 12:00:00 AM EST Never Smoker completed Never S moker eCW1 ([facility]) Smoking 03/20/2020 12:00:00 AM EST Never Smoker completed Never S moker eCW1 ([facility]) Smoking 03/17/2020 12:00:00 AM EST Never Smoker completed Never S moker eCW1 ([facility]) Smoking 02/17/2020 12:00:00 AM EST Never Smoker completed Never S moker eCW1 ([facility]) Smoking 02/17/2020 12:00:00 AM EST Never Smoker completed Never S moker eCW1 ([facility]) Smoking 02/17/2020 12:00:00 AM EST Never Smoker completed Never S moker eCW1 ([facility]) Smoking 01/26/2020 12:00:00 AM EDT Never Smoker completed Never S moker eCW1 ([facility]) Smoking 01/26/2020 12:00:00 AM EDT Never Smoker completed Never S moker eCW1 ([facility]) Smoking 01/26/2020 12:00:00 AM EDT Never Smoker completed Never S moker eCW1 ([facility]) Smoking 01/26/2020 12:00:00 AM EDT Never Smoker completed Never S moker eCW1 ([facility]) Smoking 01/26/2020 12:00:00 AM EDT Never Smoker completed Never S moker eCW1 ([facility]) Smoking 01/26/2020 12:00:00 AM EDT Never Smoker completed Never S moker eCW1 ([facility]) Smoking 01/24/2020 12:00:00 AM EDT Never Smoker completed Never S moker eCW1 ([facility]) Smoking 01/24/2020 12:00:00 AM EDT Never Smoker completed Never S moker eCW1 ([facility]) Vital Signs ID Date Data Source UNK Name Value Range Interpretation Code Description Data Source(s) Diastolic blood pressure 70 mm[Hg] 70 mm[Hg] eCW1 ([facility]) Systolic blood pressure 144 mm[Hg] 144 mm[Hg] e CW1 ([facility]) Body temperature 97.6 [degF] 97.6 [degF] eCW1 ( [facility]) Respiratory rate 18 /min 18 /min eCW1 ([facility]) Heart rate 94 /min 94 /min eCW1 ([facility]) Body mass index (BMI) [Ratio] 24.81 kg/m2 24.81 kg/m2 W1 ([facility]) Body height 67 [in_i] 67 [in_i] eCW1 ([facility]) Body weight 71.85 kg 71.85 kg eCW1 ([facility]) Body weight 158.4 [lb_av] 158.4 [lb_av] eCW1 ([facility]) Diastolic blood pressure 74 mm[Hg] 74 mm[Hg] eCW1 ([facility]) Systolic blood pressure 120 mm[Hg] 120 mm[Hg] e CW1 ([facility]) Body temperature 97.6 [degF] 97.6 [degF] eCW1 ( [facility]) Respiratory rate 18 /min 18 /min eCW1 ([facility]) Heart rate 99 /min 99 /min eCW1 ([facility]) Body mass index (BMI) [Ratio] 23.96 kg/m2 23.96 kg/m2 W1 ([facility]) Body height 67 [in_i] 67 [in_i] eCW1 ([facility]) Body weight 69.4 kg 69.4 kg eCW1 ([facility]) Body weight 153.0 [lb_av] 153.0 [lb_av] eCW1 ([facility]) Diastolic blood pressure 72 mm[Hg] 72 mm[Hg] eCW1 ([facility]) Systolic blood pressure 116 mm[Hg] 116 mm[Hg] e CW1 ([facility]) Body temperature 97.7 [degF] 97.7 [degF] eCW1 ( [facility]) Respiratory rate 18 /min 18 /min eCW1 ([facility]) Heart rate 97 /min 97 /min eCW1 ([facility]) Body mass index (BMI) [Ratio] 24.31 kg/m2 24.31 kg/m2 eCW1 ([facility]) Body height 67 [in_i] 67 [in_i] eCW1 ([facility]) Body weight 70.4 kg 70.4 kg eCW1 ([facility]) Body weight 155.2 [lb_av] 155.2 [lb_av] eCW1 ([facility]) Systolic blood pressure 122 mm[Hg] 122 mm[Hg] e CW1 ([facility]) Body temperature 98.2 [degF] 98.2 [degF] eCW1 ( [facility]) Respiratory rate 18 /min 18 /min eCW1 ([facility]) Heart rate 104 /min 104 /min eCW1 ([facility]) Body mass index (BMI) [Ratio] 26.18 kg/m2 26.18 kg/m2 eCW1 ([facility]) Body height 67 [in_i] 67 [in_i] eCW1 ([facility]) Body weight 75.84 kg 75.84 kg eCW1 ([facility]) Body weight 167.2 [lb_av] 167.2 [lb_av] eCW1 ([facility]) Diastolic blood pressure 76 mm[Hg] 76 mm[Hg] eCW1 ([facility]) Diastolic blood pressure 74 mm[Hg] 74 mm[Hg] eCW1 ([facility]) Systolic blood pressure 118 mm[Hg] 118 mm[Hg] e CW1 ([facility]) Body temperature 97.5 [degF] 97.5 [degF] eCW1 ( [facility]) Respiratory rate 18 /min 18 /min eCW1 ([facility]) Heart rate 98 /min 98 /min eCW1 ([facility]) Body mass index (BMI) [Ratio] 27.72 kg/m2 27.72 kg/m2 eCW1 ([facility]) Body height 67 [in_i] 67 [in_i] eCW1 ([facility]) Body weight 177.0 [lb_av] 177.0 [lb_av] eCW1 ([facility]) Diastolic blood pressure 66 mm[Hg] 66 mm[Hg] eCW1 ([facility]) Systolic blood pressure 114 mm[Hg] 114 mm[Hg] e CW1 ([facility]) Body temperature 97.1 [degF] 97.1 [degF] eCW1 ( [facility]) Respiratory rate 18 /min 18 /min eCW1 ([facility]) Heart rate 93 /min 93 /min eCW1 ([facility]) Body mass index (BMI) [Ratio] 27.25 kg/m2 27.25 kg/m2 W1 ([facility]) Body height 67 [in_i] 67 [in_i] eCW1 ([facility]) Body weight 174.0 [lb_av] 174.0 [lb_av] eCW1 ([facility]) Diastolic blood pressure 72 mm[Hg] 72 mm[Hg] eCW1 ([facility]) Systolic blood pressure 116 mm[Hg] 116 mm[Hg] e CW1 ([facility]) Body temperature 97.9 [degF] 97.9 [degF] eCW1 ( [facility]) Respiratory rate 18 /min 18 /min eCW1 ([facility]) Heart rate 96 /min 96 /min eCW1 ([facility]) Body mass index (BMI) [Ratio] 27.56 kg/m2 27.56 kg/m2 eCW1 ([facility]) Body height 67 [in_i] 67 [in_i] eCW1 ([facility]) Body weight 176.0 [lb_av] 176.0 [lb_av] eCW1 ([facility]) Diastolic blood pressure 72 mm[Hg] 72 mm[Hg] eCW1 ([facility]) Systolic blood pressure 133 mm[Hg] 133 mm[Hg] e CW1 ([facility]) Body temperature 97.1 [degF] 97.1 [degF] eCW1 ( [facility]) Respiratory rate 18 /min 18 /min eCW1 ([facility]) Heart rate 98 /min 98 /min eCW1 ([facility]) Body mass index (BMI) [Ratio] 27.56 kg/m2 27.56 kg/m2 eCW1 ([facility]) Body height 67 [in_i] 67 [in_i] eCW1 ([facility]) Body weight 176.0 [lb_av] 176.0 [lb_av] eCW1 ([facility]) Diastolic blood pressure 76 mm[Hg] 76 mm[Hg] eCW1 ([facility]) Systolic blood pressure 124 mm[Hg] 124 mm[Hg] e CW1 ([facility]) Body temperature 97.2 [degF] 97.2 [degF] eCW1 ( [facility]) Respiratory rate 18 /min 18 /min eCW1 ([facility]) Heart rate 104 /min 104 /min eCW1 ([facility]) Body mass index (BMI) [Ratio] 27.25 kg/m2 27.25 kg/m2 eCW1 ([facility]) Body height 67 [in_i] 67 [in_i] eCW1 ([facility]) Body weight 174.0 [lb_av] 174.0 [lb_av] eCW1 ([facility]) Diastolic blood pressure 62 mm[Hg] 62 mm[Hg] eCW1 ([facility]) Systolic blood pressure 104 mm[Hg] 104 mm[Hg] e CW1 ([facility]) Body temperature 97.9 [degF] 97.9 [degF] eCW1 ( [facility]) Respiratory rate 16 /min 16 /min eCW1 ([facility]) Heart rate 105 /min 105 /min eCW1 ([facility]) Body mass index (BMI) [Ratio] 27.25 kg/m2 27.25 kg/m2 eCW1 ([facility]) Body height 67 [in_i] 67 [in_i] eCW1 ([facility]) Body weight 174 [lb_av] 174 [lb_av] eCW1 ([facility]) Diastolic blood pressure 68 mm[Hg] 68 mm[Hg] eCW1 ([facility]) Systolic blood pressure 116 mm[Hg] 116 mm[Hg] e CW1 ([facility]) Body temperature 97.4 [degF] 97.4 [degF] eCW1 ( [facility]) Respiratory rate 18 /min 18 /min eCW1 ([facility]) Heart rate 95 /min 95 /min eCW1 ([facility]) Body mass index (BMI) [Ratio] 27.61 kg/m2 27.61 kg/m2 eCW1 ([facility]) Body height 67 [in_i] 67 [in_i] eCW1 ([facility]) Body weight 176.3 [lb_av] 176.3 [lb_av] eCW1 ([facility]) Diastolic blood pressure 72 mm[Hg] 72 mm[Hg] eCW1 ([facility]) Systolic blood pressure 114 mm[Hg] 114 mm[Hg] e CW1 ([facility]) Body temperature 97.9 [degF] 97.9 [degF] eCW1 ( [facility]) Respiratory rate 18 /min 18 /min eCW1 ([facility]) Heart rate 109 /min 109 /min eCW1 ([facility]) Body mass index (BMI) [Ratio] 27.56 kg/m2 27.56 kg/m2 eCW1 ([facility]) Body height 67 [in_i] 67 [in_i] eCW1 ([facility]) Body weight 176.0 [lb_av] 176.0 [lb_av] eCW1 ([facility]) Systolic blood pressure 116 mm[Hg] 116 mm[Hg] e CW1 ([facility]) Diastolic blood pressure 68 mm[Hg] 68 mm[Hg] eCW1 ([facility]) Body temperature 97.6 [degF] 97.6 [degF] eCW1 ( [facility]) Respiratory rate 18 /min 18 /min eCW1 ([facility]) Heart rate 105 /min 105 /min eCW1 ([facility]) Body mass index (BMI) [Ratio] 27.09 kg/m2 27.09 kg/m2 eCW1 ([facility]) Body height 67 [in_i] 67 [in_i] eCW1 ([facility]) Body weight 173 [lb_av] 173 [lb_av] eCW1 ([facility]) Diastolic blood pressure 70 mm[Hg] 70 mm[Hg] eCW1 ([facility]) Systolic blood pressure 110 mm[Hg] 110 mm[Hg] e CW1 ([facility]) Body temperature 97.1 [degF] 97.1 [degF] eCW1 ( [facility]) Respiratory rate 18 /min 18 /min eCW1 ([facility]) Heart rate 106 /min 106 /min eCW1 ([facility]) Body mass index (BMI) [Ratio] 27.25 kg/m2 27.25 kg/m2 eCW1 ([facility]) Body height 67 [in_i] 67 [in_i] eCW1 ([facility]) Body weight 174 [lb_av] 174 [lb_av] eCW1 ([facility]) Body temperature 97.4 [degF] 97.4 [degF] eCW1 ( [facility]) Respiratory rate 18 /min 18 /min eCW1 ([facility]) Heart rate 103 /min 103 /min eCW1 ([facility]) Diastolic blood pressure 76 mm[Hg] 76 mm[Hg] eCW1 ([facility]) Systolic blood pressure 118 mm[Hg] 118 mm[Hg] e CW1 ([facility]) Body mass index (BMI) [Ratio] 27.56 kg/m2 27.56 kg/m2 eCW1 ([facility]) Body height 67 [in_i] 67 [in_i] eCW1 ([facility]) Body weight 176 [lb_av] 176 [lb_av] eCW1 ([facility]) Diastolic blood pressure 76 mm[Hg] 76 mm[Hg] eCW1 ([facility]) Systolic blood pressure 120 mm[Hg] 120 mm[Hg] e CW1 ([facility]) Body temperature 97.8 [degF] 97.8 [degF] eCW1 ( [facility]) Respiratory rate 18 /min 18 /min eCW1 ([facility]) Heart rate 94 /min 94 /min eCW1 ([facility]) Body mass index (BMI) [Ratio] 28.19 kg/m2 28.19 kg/m2 eCW1 ([facility]) Body height 67 [in_i] 67 [in_i] eCW1 ([facility]) Body weight 180 [lb_av] 180 [lb_av] eCW1 ([facility]) Diastolic blood pressure 74 mm[Hg] 74 mm[Hg] eCW1 ([facility]) Systolic blood pressure 126 mm[Hg] 126 mm[Hg] e CW1 ([facility]) Body temperature 97.6 [degF] 97.6 [degF] eCW1 ( [facility]) Respiratory rate 18 /min 18 /min eCW1 ([facility]) Heart rate 103 /min 103 /min eCW1 ([facility]) Body mass index (BMI) [Ratio] 27.88 kg/m2 27.88 kg/m2 eCW1 ([facility]) Body height 67 [in_i] 67 [in_i] eCW1 ([facility]) Body weight 178 [lb_av] 178 [lb_av] eCW1 ([facility]) Diastolic blood pressure 88 mm[Hg] 88 mm[Hg] eCW1 ([facility]) Systolic blood pressure 136 mm[Hg] 136 mm[Hg] e CW1 ([facility]) Body temperature 97.1 [degF] 97.1 [degF] eCW1 ( [facility]) Respiratory rate 18 /min 18 /min eCW1 ([facility]) Heart rate 105 /min 105 /min eCW1 ([facility]) Body mass index (BMI) [Ratio] 27.81 kg/m2 27.81 kg/m2 eCW1 ([facility]) Body height 67 [in_i] 67 [in_i] eCW1 ([facility]) Body weight 177.6 [lb_av] 177.6 [lb_av] eCW1 ([facility]) Diastolic blood pressure 78 mm[Hg] 78 mm[Hg] eCW1 ([facility]) Systolic blood pressure 142 mm[Hg] 142 mm[Hg] e CW1 ([facility]) Body temperature 97.0 [degF] 97.0 [degF] eCW1 ( [facility]) Respiratory rate 18 /min 18 /min eCW1 ([facility]) Heart rate 96 /min 96 /min eCW1 ([facility]) Body mass index (BMI) [Ratio] 28.85 kg/m2 28.85 kg/m2 eCW1 ([facility]) Body height 67 [in_i] 67 [in_i] eCW1 ([facility]) Body weight 184.2 [lb_av] 184.2 [lb_av] eCW1 ([facility]) Diastolic blood pressure 72 mm[Hg] 72 mm[Hg] eCW1 ([facility]) Systolic blood pressure 118 mm[Hg] 118 mm[Hg] e CW1 ([facility]) Body temperature 98.2 [degF] 98.2 [degF] eCW1 ( [facility]) Respiratory rate 18 /min 18 /min eCW1 ([facility]) Heart rate 98.2 /min 98.2 /min eCW1 ([facility]) Body mass index (BMI) [Ratio] 28.50 kg/m2 28.50 kg/m2 eCW1 ([facility]) Body height 67 [in_i] 67 [in_i] eCW1 ([facility]) Body weight 182 [lb_av] 182 [lb_av] eCW1 ([facility]) Body mass index (BMI) [Ratio] 28.82 kg/m2 28.82 kg/m2 eCW1 ([facility]) Body height 67 [in_i] 67 [in_i] eCW1 ([facility]) Body weight 184 [lb_av] 184 [lb_av] eCW1 ([facility]) Diastolic blood pressure 65 mm[Hg] 65 mm[Hg] eCW1 ([facility]) Systolic blood pressure 119 mm[Hg] 119 mm[Hg] e CW1 ([facility]) Body temperature 97.4 [degF] 97.4 [degF] eCW1 ( [facility]) Respiratory rate 18 /min 18 /min eCW1 ([facility]) Heart rate 95 /min 95 /min eCW1 ([facility]) Body surface area Derived from formula 1.95 m2 1.95 m2 [facility] ([facility]) Body weight 83.236 kg 83.236 kg [facility] ([facility]) [place] body weight 135 [lb_av] 135 [lb_av] MEDEN T ([facility]) Body mass index (BMI) [Ratio] 28.7 kg/m2 28.7 k g/m2 [facility] ([facility]) Body weight 183.50 [lb_av] 183.50 [lb_av] MEDEN T ([facility]) Body height 67 [in_i] 67 [in_i] [facility] ([facility]) 5'7" Heart rate 103 /min 103 /min [facility] ([facility]) Diastolic blood pressure 73 mm[Hg] 73 mm[Hg] [facility] ([facility]) Systolic blood pressure 118 mm[Hg] 118 mm[Hg] M EDENT ([facility]) Diastolic blood pressure 72 mm[Hg] 72 mm[Hg] eCW1 ([facility]) Systolic blood pressure 118 mm[Hg] 118 mm[Hg] e CW1 ([facility]) Body temperature 97.3 [degF] 97.3 [degF] eCW1 ( [facility]) Respiratory rate 18 /min 18 /min eCW1 ([facility]) Heart rate 97 /min 97 /min eCW1 ([facility]) Body mass index (BMI) [Ratio] 28.82 kg/m2 28.82 kg/m2 eCW1 ([facility]) Body height 67 [in_i] 67 [in_i] eCW1 ([facility]) Body weight 184 [lb_av] 184 [lb_av] eCW1 ([facility]) Diastolic blood pressure 78 mm[Hg] 78 mm[Hg] eCW1 ([facility]) Systolic blood pressure 132 mm[Hg] 132 mm[Hg] e CW1 ([facility]) Body temperature 97.5 [degF] 97.5 [degF] eCW1 ( [facility]) Respiratory rate 18 /min 18 /min eCW1 ([facility]) Heart rate 100 /min 100 /min eCW1 ([facility]) Body mass index (BMI) [Ratio] 29.03 kg/m2 29.03 kg/m2 eCW1 ([facility]) Body height 67 [in_i] 67 [in_i] eCW1 ([facility]) Body weight 185.4 [lb_av] 185.4 [lb_av] eCW1 ([facility]) Body surface area Derived from formula 1.94 m2 1.94 m2 [facility] ([facility], ) Body weight 82.328 kg 82.328 kg [facility] ([facility], ) [place] body weight 135 [lb_av] 135 [lb_av] MEDEN T ([facility], ) Body mass index (BMI) [Ratio] 28.4 kg/m2 28.4 k g/m2 [facility] ([facility], ) Body weight 181.50 [lb_av] 181.50 [lb_av] MEDEN T ([facility], ) Body height 67 [in_i] 67 [in_i] [facility] ([facility], ) 5'7" Diastolic blood pressure 84 mm[Hg] 84 mm[Hg] [facility] ([facility], ) Systolic blood pressure 126 mm[Hg] 126 mm[Hg] M EDENT ([facility], ) Diastolic blood pressure 76 mm[Hg] 76 mm[Hg] eCW1 ([facility]) Systolic blood pressure 112 mm[Hg] 112 mm[Hg] e CW1 ([facility]) Body temperature 97.3 [degF] 97.3 [degF] eCW1 ( [facility]) Respiratory rate 17 /min 17 /min eCW1 ([facility]) Heart rate 102 /min 102 /min eCW1 ([facility]) Body mass index (BMI) [Ratio] 28.66 kg/m2 28.66 kg/m2 eCW1 ([facility]) Body height 67 [in_i] 67 [in_i] eCW1 ([facility]) Body weight 183 [lb_av] 183 [lb_av] eCW1 ([facility]) Body mass index (BMI) [Ratio] 25.1 kg/m2 [...] blood pressure 69 mm[Hg] 69 mm[Hg] eCW1 ([facility]) Systolic blood pressure 139 mm[Hg] 139 mm[Hg] e CW1 ([facility]) Body temperature 97.0 [degF] 97.0 [degF] eCW1 ( [facility]) Respiratory rate 18 /min 18 /min eCW1 ([facility]) Heart rate 99 /min 99 /min eCW1 ([facility]) Body mass index (BMI) [Ratio] 28.47 kg/m2 28.47 kg/m2 eCW1 ([facility]) Body height 67 [in_i] 67 [in_i] eCW1 ([facility]) Body weight 181.8 [lb_av] 181.8 [lb_av] eCW1 ([facility]) Diastolic blood pressure 68 mm[Hg] 68 mm[Hg] eCW1 ([facility]) Systolic blood pressure 126 mm[Hg] 126 mm[Hg] e CW1 ([facility]) Body temperature 98.1 [degF] 98.1 [degF] eCW1 ( [facility]) Respiratory rate 18 /min 18 /min eCW1 ([facility]) Heart rate 104 /min 104 /min eCW1 ([facility]) Body mass index (BMI) [Ratio] 27.41 kg/m2 27.41 kg/m2 eCW1 ([facility]) Body height 67 [in_i] 67 [in_i] eCW1 ([facility]) Body weight 175 [lb_av] 175 [lb_av] eCW1 ([facility]) [place] body weight 130 [lb_av] 130 [lb_av] MEDEN T ([facility], ) Body mass index (BMI) [Ratio] 27.4 kg/m2 27.4 k g/m2 [facility] ([facility]) Body weight 170.00 [lb_av] 170.00 [lb_av] MEDEN T ([facility], ) Body height 66 [in_i] 66 [in_i] [facility] ([facility]) 5'6" Respiratory rate 12 /min 12 /min [facility] ( [facility]) Body surface area Derived from formula 1.93 m2 1.93 m2 [facility] ([facility], ) Body weight 81.251 kg 81.251 kg [facility] ([facility]) [place] body weight 135 [lb_av] 135 [lb_av] MEDEN T ([facility]) Body mass index (BMI) [Ratio] 28.1 kg/m2 28.1 k g/m2 [facility], [facility] Body weight 179.12 [lb_av] 179.12 [lb_av] MEDEN T ([facility]) Body height 67 [in_i] 67 [in_i] [facility] ([facility]) 5'7" Diastolic blood pressure 79 mm[Hg] 79 mm[Hg] [facility] ([facility]) Systolic blood pressure 139 mm[Hg] 139 mm[Hg] M EDENT ([facility]) Diastolic blood pressure 70 mm[Hg] 70 mm[Hg] eCW1 ([facility]) Systolic blood pressure 116 mm[Hg] 116 mm[Hg] e CW1 ([facility]) Body temperature 97.3 [degF] 97.3 [degF] eCW1 ( [facility]) Respiratory rate 18 /min 18 /min eCW1 ([facility]) Heart rate 103 /min 103 /min eCW1 ([facility]) Body mass index (BMI) [Ratio] 27.11 kg/m2 27.11 kg/m2 W1 ([facility]) Body height 67 [in_i] 67 [in_i] eCW1 ([facility]) Body weight 173.08 [lb_av] 173.08 [lb_av] eCW1 ([facility]) Diastolic blood pressure 78 mm[Hg] 78 mm[Hg] eCW1 ([facility]) Systolic blood pressure 112 mm[Hg] 112 mm[Hg] e CW1 ([facility]) Body temperature 97.1 [degF] 97.1 [degF] eCW1 ( [facility]) Respiratory rate 18 /min 18 /min eCW1 ([facility]) Heart rate 102 /min 102 /min eCW1 ([facility]) Body mass index (BMI) [Ratio] 27.37 kg/m2 27.37 kg/m2 W1 ([facility]) Body height 67 [in_i] 67 [in_i] eCW1 ([facility]) Body weight 174.8 [lb_av] 174.8 [lb_av] eCW1 ([facility]) Diastolic blood pressure 68 mm[Hg] 68 mm[Hg] eCW1 ([facility]) Systolic blood pressure 147 mm[Hg] 147 mm[Hg] e CW1 ([facility]) Body temperature 97.0 [degF] 97.0 [degF] eCW1 ( [facility]) Respiratory rate 18 /min 18 /min eCW1 ([facility]) Heart rate 99 /min 99 /min eCW1 ([facility]) Body mass index (BMI) [Ratio] 27.03 kg/m2 27.03 kg/m2 eCW1 ([facility]) Body height 67 [in_i] 67 [in_i] eCW1 ([facility]) Body weight 172.6 [lb_av] 172.6 [lb_av] eCW1 ([facility]) Patient Treatment Plan of Care Planned Activity Planned Date Details Description Data Source (s) Lactulose 667 MG/ML Oral Solution 02/19/2021 12:00:00 AM EST eCW1 ([facility]) Lactulose 667 MG/ML Oral Solution 02/19/2021 12:00:00 AM EST eCW1 ([facility]) Hydromorphone Hydrochloride 2 MG Oral Tablet 02/12/2021 12:00:00 AM EDT eCW1 ([facility]) Hydromorphone Hydrochloride 2 MG Oral Tablet 02/12/2021 12:00:00 AM EDT eCW1 ([facility]) Hydromorphone Hydrochloride 2 MG Oral Tablet 02/12/2021 12:00:00 AM EDT eCW1 ([facility]) Hydromorphone Hydrochloride 2 MG Oral Tablet 02/12/2021 12:00:00 AM EDT eCW1 ([facility]) [facility] Magnesium Oxide 250 MG 02/05/2021 12:00:00 AM EDT eCW1 ([facility]) [facility] Magnesium Oxide 250 MG 02/05/2021 12:00:00 AM EDT eCW1 ([facility]) [facility] Magnesium Oxide 250 MG 02/05/2021 12:00:00 AM EDT eCW1 ([facility]) [facility] Magnesium Oxide 250 MG 02/05/2021 12:00:00 AM EDT eCW1 ([facility]) [facility] Magnesium Oxide 250 MG 02/05/2021 12:00:00 AM EDT eCW1 ([facility]) [facility] Magnesium Oxide 250 MG 02/05/2021 12:00:00 AM EDT eCW1 ([facility]) [facility] Magnesium Oxide 250 MG 02/05/2021 12:00:00 AM EDT eCW1 ([facility]) [facility] Magnesium Oxide 250 MG 02/05/2021 12:00:00 AM EDT eCW1 ([facility]) [facility] Magnesium Oxide 250 MG 02/05/2021 12:00:00 AM EDT eCW1 ([facility]) Hydrocodone-Chlorpheniramine 01/19/2021 12:00:00 AM EDT eCW1 ([facility]) Hydrocodone-Chlorpheniramine 01/19/2021 12:00:00 AM EDT eCW1 ([facility]) Hydrocodone-Chlorpheniramine 01/19/2021 12:00:00 AM EDT eCW1 ([facility]) Hydrocodone-Chlorpheniramine 01/19/2021 12:00:00 AM EDT eCW1 ([facility]) Hydrocodone-Chlorpheniramine 01/19/2021 12:00:00 AM EDT eCW1 ([facility]) Hydrocodone-Chlorpheniramine 01/19/2021 12:00:00 AM EDT eCW1 ([facility]) benzonatate 100 MG Oral Capsule 01/05/2021 12:00:00 AM EDT eCW1 ([facility]) benzonatate 100 MG Oral Capsule [Tessalon Perles] 01/05/2021 12: 00:00 AM EDT eCW1 ([facility]) benzonatate 100 MG Oral Capsule 01/05/2021 12:00:00 AM EDT eCW1 ([facility]) benzonatate 100 MG Oral Capsule [Tessalon Perles] 01/05/2021 12: 00:00 AM EDT eCW1 ([facility]) benzonatate 100 MG Oral Capsule 01/05/2021 12:00:00 AM EDT eCW1 ([facility]) benzonatate 100 MG Oral Capsule [Tessalon Perles] 01/05/2021 12: 00:00 AM EDT eCW1 ([facility]) benzonatate 100 MG Oral Capsule 01/05/2021 12:00:00 AM EDT eCW1 ([facility]) benzonatate 100 MG Oral Capsule [Tessalon Perles] 01/05/2021 12: 00:00 AM EDT eCW1 ([facility]) benzonatate 100 MG Oral Capsule 01/05/2021 12:00:00 AM EDT eCW1 ([facility]) benzonatate 100 MG Oral Capsule [Tessalon Perles] 01/05/2021 12: 00:00 AM EDT eCW1 ([facility]) Hydromorphone Hydrochloride 2 MG Oral Tablet 12/01/2020 12:00:00 AM EDT eCW1 ([facility]) Hydromorphone Hydrochloride 2 MG Oral Tablet 12/01/2020 12:00:00 AM EDT eCW1 ([facility]) Hydromorphone Hydrochloride 2 MG Oral Tablet 12/01/2020 12:00:00 AM EDT eCW1 ([facility]) Hydromorphone Hydrochloride 2 MG Oral Tablet 12/01/2020 12:00:00 AM EDT eCW1 ([facility]) Hydromorphone Hydrochloride 2 MG Oral Tablet 12/01/2020 12:00:00 AM EDT eCW1 ([facility]) Hydromorphone Hydrochloride 2 MG Oral Tablet 12/01/2020 12:00:00 AM EDT eCW1 ([facility]) Hydromorphone Hydrochloride 2 MG Oral Tablet 12/01/2020 12:00:00 AM EDT eCW1 ([facility]) Hydromorphone Hydrochloride 2 MG Oral Tablet 11/24/2020 12:00:00 AM EDT eCW1 ([facility]) Hydromorphone Hydrochloride 2 MG Oral Tablet 11/15/2020 12:00:00 AM EDT eCW1 ([facility]) Hydromorphone Hydrochloride 2 MG Oral Tablet 11/15/2020 12:00:00 AM EDT eCW1 ([facility]) Hydromorphone Hydrochloride 2 MG Oral Tablet 11/15/2020 12:00:00 AM EDT eCW1 ([facility]) Hydromorphone Hydrochloride 2 MG Oral Tablet 11/15/2020 12:00:00 AM EDT eCW1 ([facility]) Hydromorphone Hydrochloride 2 MG Oral Tablet 11/15/2020 12:00:00 AM EDT eCW1 ([facility]) Hydromorphone Hydrochloride 2 MG Oral Tablet 11/15/2020 12:00:00 AM EDT eCW1 ([facility]) Hydromorphone Hydrochloride 2 MG Oral Tablet 11/15/2020 12:00:00 AM EDT eCW1 ([facility]) Hydromorphone Hydrochloride 2 MG Oral Tablet 11/15/2020 12:00:00 AM EDT eCW1 ([facility]) Hydromorphone Hydrochloride 2 MG Oral Tablet 11/15/2020 12:00:00 AM EDT eCW1 ([facility]) Hydromorphone Hydrochloride 2 MG Oral Tablet 11/15/2020 12:00:00 AM EDT eCW1 ([facility]) Hydromorphone Hydrochloride 2 MG Oral Tablet 11/15/2020 12:00:00 AM EDT eCW1 ([facility]) Hydromorphone Hydrochloride 2 MG Oral Tablet 11/15/2020 12:00:00 AM EDT eCW1 ([facility]) Hydromorphone Hydrochloride 2 MG Oral Tablet 11/15/2020 12:00:00 AM EDT eCW1 ([facility]) Hydromorphone Hydrochloride 2 MG Oral Tablet 11/15/2020 12:00:00 AM EDT eCW1 ([facility]) Hydromorphone Hydrochloride 2 MG Oral Tablet 11/15/2020 12:00:00 AM EDT eCW1 ([facility]) Hydromorphone Hydrochloride 2 MG Oral Tablet 11/15/2020 12:00:00 AM EDT eCW1 ([facility]) Hydromorphone Hydrochloride 2 MG Oral Tablet 11/15/2020 12:00:00 AM EDT eCW1 ([facility]) Hydromorphone Hydrochloride 2 MG Oral Tablet 11/15/2020 12:00:00 AM EDT eCW1 ([facility]) Hydromorphone Hydrochloride 2 MG Oral Tablet 11/15/2020 12:00:00 AM EDT eCW1 ([facility]) Hydromorphone Hydrochloride 2 MG Oral Tablet 11/15/2020 12:00:00 AM EDT eCW1 ([facility]) Hydromorphone Hydrochloride 2 MG Oral Tablet 11/15/2020 12:00:00 AM EDT eCW1 ([facility]) Hydromorphone Hydrochloride 2 MG Oral Tablet 11/15/2020 12:00:00 AM EDT eCW1 ([facility]) Hydromorphone Hydrochloride 2 MG Oral Tablet 11/15/2020 12:00:00 AM EDT eCW1 ([facility]) Hydromorphone Hydrochloride 2 MG Oral Tablet 11/15/2020 12:00:00 AM EDT eCW1 ([facility]) Hydromorphone Hydrochloride 2 MG Oral Tablet 11/15/2020 12:00:00 AM EDT eCW1 ([facility]) Hydromorphone Hydrochloride 2 MG Oral Tablet 11/15/2020 12:00:00 AM EDT eCW1 ([facility]) Hydromorphone Hydrochloride 2 MG Oral Tablet 11/15/2020 12:00:00 AM EDT eCW1 ([facility]) Hydromorphone Hydrochloride 2 MG Oral Tablet 11/15/2020 12:00:00 AM EDT eCW1 ([facility]) Hydromorphone Hydrochloride 2 MG Oral Tablet 11/15/2020 12:00:00 AM EDT eCW1 ([facility]) Hydromorphone Hydrochloride 2 MG Oral Tablet 11/15/2020 12:00:00 AM EDT eCW1 ([facility]) Hydromorphone Hydrochloride 2 MG Oral Tablet 11/15/2020 12:00:00 AM EDT eCW1 ([facility]) Hydromorphone Hydrochloride 2 MG Oral Tablet 11/15/2020 12:00:00 AM EDT eCW1 ([facility]) Hydromorphone Hydrochloride 2 MG Oral Tablet 11/15/2020 12:00:00 AM EDT eCW1 ([facility]) Hydromorphone Hydrochloride 2 MG Oral Tablet 11/15/2020 12:00:00 AM EDT eCW1 ([facility]) Mupirocin 0.02 MG/MG Topical Ointment 11/03/2020 12:00:00 AM EDT eCW1 ([facility]) Medipore H Surgical 4"x10yd - 11/03/2020 12:00:00 AM EDT eCW1 ([facility]) Mupirocin 0.02 MG/MG Topical Ointment 11/03/2020 12:00:00 AM EDT eCW1 ([facility]) Medipore H Surgical 4"x10yd - 11/03/2020 12:00:00 AM EDT eCW1 ([facility]) Mupirocin 0.02 MG/MG Topical Ointment 11/03/2020 12:00:00 AM EDT eCW1 ([facility]) Medipore H Surgical 4"x10yd - 11/03/2020 12:00:00 AM EDT eCW1 ([facility]) Mupirocin 0.02 MG/MG Topical Ointment 11/03/2020 12:00:00 AM EDT eCW1 ([facility]) Mupirocin 0.02 MG/MG Topical Ointment 11/03/2020 12:00:00 AM EDT eCW1 ([facility]) Medipore H Surgical 4"x10yd - 11/03/2020 12:00:00 AM EDT eCW1 ([facility]) Medipore H Surgical 4"x10yd - 11/03/2020 12:00:00 AM EDT eCW1 ([facility]) Neosporin LT 10/31/2020 12:00:00 AM EDT e CW1 ([facility]) Neosporin LT 10/31/2020 12:00:00 AM EDT e CW1 ([facility]) Neosporin Pain Relieving Berry 10/30/2020 12:00:00 AM EDT eCW1 ([facility]) Neosporin Pain Relieving Berry 10/30/2020 12:00:00 AM EDT eCW1 ([facility]) Neosporin Pain Relieving Berry 10/30/2020 12:00:00 AM EDT eCW1 ([facility]) Cavilon spray 10/26/2020 12:00:00 AM EDT eCW1 ([facility]) Hydromorphone Hydrochloride 2 MG Oral Tablet 10/21/2020 12:00:00 AM EDT eCW1 ([facility]) Hydromorphone Hydrochloride 2 MG Oral Tablet 10/21/2020 12:00:00 AM EDT eCW1 ([facility]) Hydromorphone Hydrochloride 2 MG Oral Tablet 10/21/2020 12:00:00 AM EDT eCW1 ([facility]) Hydromorphone Hydrochloride 2 MG Oral Tablet 10/21/2020 12:00:00 AM EDT eCW1 ([facility]) DuoDERM CGF Dressing - 10/20/2020 12:00:00 AM EDT eCW1 ([facility]) DuoDERM CGF Dressing - 10/20/2020 12:00:00 AM EDT eCW1 ([facility]) DuoDERM CGF Dressing - 10/20/2020 12:00:00 AM EDT eCW1 ([facility]) DuoDERM CGF Dressing - 10/20/2020 12:00:00 AM EDT eCW1 ([facility]) Nystatin 100 UNT/MG Topical Powder 10/13/2020 12:00:00 AM EDT eCW1 ([facility]) Hydromorphone Hydrochloride 2 MG Oral Tablet 09/27/2020 12:00:00 AM EDT eCW1 ([facility]) Hydromorphone Hydrochloride 2 MG Oral Tablet 09/27/2020 12:00:00 AM EDT eCW1 ([facility]) Sodium Chloride 0.111 MEQ/ML Nasal Berry 09/14/2020 12:00:00 AM EDT eCW1 ([facility]) Sodium Chloride 0.111 MEQ/ML Nasal Berry 09/14/2020 12:00:00 AM EDT eCW1 ([facility]) Mupirocin 0.02 MG/MG Topical Ointment 09/14/2020 12:00:00 AM EDT eCW1 ([facility]) Sodium Chloride 0.111 MEQ/ML Nasal Berry 09/14/2020 12:00:00 AM EDT eCW1 ([facility]) Mupirocin 0.02 MG/MG Topical Ointment 09/14/2020 12:00:00 AM EDT eCW1 ([facility]) Mupirocin 0.02 MG/MG Topical Ointment 09/14/2020 12:00:00 AM EDT eCW1 ([facility]) Sodium Chloride 0.111 MEQ/ML Nasal Berry 09/14/2020 12:00:00 AM EDT eCW1 ([facility]) Mupirocin 0.02 MG/MG Topical Ointment 09/14/2020 12:00:00 AM EDT eCW1 ([facility]) Mupirocin 0.02 MG/MG Topical Ointment 09/14/2020 12:00:00 AM EDT eCW1 ([facility]) Sodium Chloride 0.111 MEQ/ML Nasal Berry 09/14/2020 12:00:00 AM EDT eCW1 ([facility]) Sodium Chloride 0.111 MEQ/ML Nasal Berry 09/14/2020 12:00:00 AM EDT eCW1 ([facility]) Mupirocin 0.02 MG/MG Topical Ointment 09/14/2020 12:00:00 AM EDT eCW1 ([facility]) Sodium Chloride 0.111 MEQ/ML Nasal Berry 09/14/2020 12:00:00 AM EDT eCW1 ([facility]) Mupirocin 0.02 MG/MG Topical Ointment 09/14/2020 12:00:00 AM EDT eCW1 ([facility]) Cephalexin 500 MG Oral Capsule 09/04/2020 12:00:00 AM EDT eCW1 ([facility]) Cephalexin 500 MG Oral Capsule 09/04/2020 12:00:00 AM EDT eCW1 ([facility]) Cephalexin 500 MG Oral Capsule 09/04/2020 12:00:00 AM EDT eCW1 ([facility]) Cephalexin 500 MG Oral Capsule 09/04/2020 12:00:00 AM EDT eCW1 ([facility]) Cephalexin 500 MG Oral Capsule 09/04/2020 12:00:00 AM EDT eCW1 ([facility]) Bactroban 2% 09/01/2020 12:00:00 AM EDT e CW1 ([facility]) Bactroban 2% 09/01/2020 12:00:00 AM EDT e CW1 ([facility]) Hydromorphone Hydrochloride 2 MG Oral Tablet 08/25/2020 12:00:00 AM EDT eCW1 ([facility]) Hydromorphone Hydrochloride 2 MG Oral Tablet 08/25/2020 12:00:00 AM EDT eCW1 ([facility]) Hydromorphone Hydrochloride 2 MG Oral Tablet 08/15/2020 12:00:00 AM EDT eCW1 ([facility]) Hydromorphone Hydrochloride 2 MG Oral Tablet 08/15/2020 12:00:00 AM EDT eCW1 ([facility]) Hydromorphone Hydrochloride 2 MG Oral Tablet 08/15/2020 12:00:00 AM EDT eCW1 ([facility]) Hydromorphone Hydrochloride 2 MG Oral Tablet 08/04/2020 12:00:00 AM EDT eCW1 ([facility]) Hydromorphone Hydrochloride 2 MG Oral Tablet 08/04/2020 12:00:00 AM EDT eCW1 ([facility]) Hydromorphone Hydrochloride 2 MG Oral Tablet 08/04/2020 12:00:00 AM EDT eCW1 ([facility]) Hydromorphone Hydrochloride 2 MG Oral Tablet 08/04/2020 12:00:00 AM EDT eCW1 ([facility]) Hydromorphone Hydrochloride 2 MG Oral Tablet 08/04/2020 12:00:00 AM EDT eCW1 ([facility]) Hydromorphone Hydrochloride 2 MG Oral Tablet 08/04/2020 12:00:00 AM EDT eCW1 ([facility]) Hydromorphone Hydrochloride 2 MG Oral Tablet 08/04/2020 12:00:00 AM EDT eCW1 ([facility]) Hydromorphone Hydrochloride 2 MG Oral Tablet 08/04/2020 12:00:00 AM EDT eCW1 ([facility]) Nystatin [id number] UNT/ML Topical Cream 08/03/2020 12:00:00 AM EDT eCW1 ([facility]) Pedialyte - 08/03/2020 12:00:00 AM EDT e CW1 ([facility]) Nystatin [id number] UNT/ML Topical Cream 08/03/2020 12:00:00 AM EDT eCW1 ([facility]) Pedialyte - 08/03/2020 12:00:00 AM EDT e CW1 ([facility]) Pedialyte - 08/03/2020 12:00:00 AM EDT e CW1 ([facility]) Nystatin 443156 UNT/ML Topical Cream 08/03/2020 12:00:00 AM EDT eCW1 ([facility]) Pedialyte - 08/03/2020 12:00:00 AM EDT e CW1 ([facility]) Nystatin 290059 UNT/ML Topical Cream 08/03/2020 12:00:00 AM EDT eCW1 ([facility]) Nystatin 164258 UNT/ML Topical Cream 08/03/2020 12:00:00 AM EDT eCW1 ([facility]) Pedialyte - 08/03/2020 12:00:00 AM EDT e CW1 ([facility]) Nystatin [id number] UNT/ML Topical Cream 08/03/2020 12:00:00 AM EDT eCW1 ([facility]) Pedialyte - 08/03/2020 12:00:00 AM EDT e CW1 ([facility]) Nystatin [id number] UNT/ML Topical Cream 08/03/2020 12:00:00 AM EDT eCW1 ([facility]) Pedialyte - 08/03/2020 12:00:00 AM EDT e CW1 ([facility]) Nystatin [id number] UNT/ML Topical Cream 08/03/2020 12:00:00 AM EDT eCW1 ([facility]) Pedialyte - 08/03/2020 12:00:00 AM EDT e CW1 ([facility]) Petrolatum 0.41 MG/MG Topical Ointment [Aquaphor] 07/28/2020 12: 00:00 AM EDT eCW1 ([facility]) Hydromorphone Hydrochloride 2 MG Oral Tablet 07/17/2020 12:00:00 AM EDT eCW1 ([facility]) Hydromorphone Hydrochloride 2 MG Oral Tablet 07/17/2020 12:00:00 AM EDT eCW1 ([facility]) Hydromorphone Hydrochloride 2 MG Oral Tablet 07/03/2020 12:00:00 AM EDT eCW1 ([facility]) Hydromorphone Hydrochloride 2 MG Oral Tablet 06/29/2020 12:00:00 AM EDT eCW1 ([facility]) Mupirocin 0.02 MG/MG Topical Ointment 06/26/2020 12:00:00 AM EDT eCW1 ([facility]) Hydromorphone Hydrochloride 2 MG Oral Tablet 06/21/2020 12:00:00 AM EST eCW1 ([facility]) Hydromorphone Hydrochloride 2 MG Oral Tablet 06/21/2020 12:00:00 AM EST eCW1 ([facility]) Hydromorphone Hydrochloride 2 MG Oral Tablet 06/21/2020 12:00:00 AM EST eCW1 ([facility]) Medipore H Surgical 4"x10yd - 06/02/2020 12:00:00 AM EST eCW1 ([facility]) Mupirocin 20 MG/ML Topical Cream 05/12/2020 12:00:00 AM EST eCW1 ([facility]) Mometasone Furoate 50 MCG/ACT 04/12/2020 12:00:00 AM EST eCW1 ([facility]) mesalamine 1000 MG Rectal Suppository 04/12/2020 12:00:00 AM EST eCW1 ([facility]) Mometasone Furoate 50 MCG/ACT 04/12/2020 12:00:00 AM EST eCW1 ([facility]) Doxycycline Monohydrate 100 MG Oral Capsule 04/12/2020 12:00:00 AM EST eCW1 ([facility]) Doxycycline Monohydrate 100 MG Oral Capsule 04/12/2020 12:00:00 AM EST eCW1 ([facility]) mesalamine 1000 MG Rectal Suppository 04/12/2020 12:00:00 AM EST eCW1 ([facility]) Mometasone Furoate 50 MCG/ACT 04/12/2020 12:00:00 AM EST eCW1 ([facility]) Doxycycline Monohydrate 100 MG Oral Capsule 04/12/2020 12:00:00 AM EST eCW1 ([facility]) mesalamine 1000 MG Rectal Suppository 04/12/2020 12:00:00 AM EST eCW1 ([facility]) Mometasone Furoate 50 MCG/ACT 04/12/2020 12:00:00 AM EST eCW1 ([facility]) mesalamine 1000 MG Rectal Suppository 04/12/2020 12:00:00 AM EST eCW1 ([facility]) Mometasone Furoate 50 MCG/ACT 04/12/2020 12:00:00 AM EST eCW1 ([facility]) Doxycycline Monohydrate 100 MG Oral Capsule 04/12/2020 12:00:00 AM EST eCW1 ([facility]) mesalamine 1000 MG Rectal Suppository 04/12/2020 12:00:00 AM EST eCW1 ([facility]) Mometasone Furoate 50 MCG/ACT 04/12/2020 12:00:00 AM EST eCW1 ([facility]) Doxycycline Monohydrate 100 MG Oral Capsule 04/12/2020 12:00:00 AM EST eCW1 ([facility]) mesalamine 1000 MG Rectal Suppository 04/12/2020 12:00:00 AM EST eCW1 ([facility]) Mometasone Furoate 50 MCG/ACT 04/12/2020 12:00:00 AM EST eCW1 ([facility]) Doxycycline Monohydrate 100 MG Oral Capsule 04/12/2020 12:00:00 AM EST eCW1 ([facility]) mesalamine 1000 MG Rectal Suppository 04/12/2020 12:00:00 AM EST eCW1 ([facility]) Mometasone Furoate 50 MCG/ACT 04/12/2020 12:00:00 AM EST eCW1 ([facility]) Doxycycline Monohydrate 100 MG Oral Capsule 04/12/2020 12:00:00 AM EST eCW1 ([facility]) mesalamine 1000 MG Rectal Suppository 04/12/2020 12:00:00 AM EST eCW1 ([facility]) Mometasone Furoate 50 MCG/ACT 04/12/2020 12:00:00 AM EST eCW1 ([facility]) Doxycycline Monohydrate 100 MG Oral Capsule 04/12/2020 12:00:00 AM EST eCW1 ([facility]) mesalamine 1000 MG Rectal Suppository 04/12/2020 12:00:00 AM EST eCW1 ([facility]) Mometasone Furoate 50 MCG/ACT 04/12/2020 12:00:00 AM EST eCW1 ([facility]) Doxycycline Monohydrate 100 MG Oral Capsule 04/12/2020 12:00:00 AM EST eCW1 ([facility]) mesalamine 1000 MG Rectal Suppository 04/12/2020 12:00:00 AM EST eCW1 ([facility]) Mometasone Furoate 50 MCG/ACT 04/12/2020 12:00:00 AM EST eCW1 ([facility]) Doxycycline Monohydrate 100 MG Oral Capsule 04/12/2020 12:00:00 AM EST eCW1 ([facility]) Doxycycline Monohydrate 100 MG Oral Capsule 04/12/2020 12:00:00 AM EST eCW1 ([facility]) mesalamine 1000 MG Rectal Suppository 04/12/2020 12:00:00 AM EST eCW1 ([facility]) Mometasone Furoate 50 MCG/ACT 04/12/2020 12:00:00 AM EST eCW1 ([facility]) mesalamine 1000 MG Rectal Suppository 04/12/2020 12:00:00 AM EST eCW1 ([facility]) Doxycycline Monohydrate 100 MG Oral Capsule 04/12/2020 12:00:00 AM EST eCW1 ([facility]) Doxycycline Monohydrate 100 MG Oral Capsule 04/12/2020 12:00:00 AM EST eCW1 ([facility]) Mometasone Furoate 50 MCG/ACT 04/12/2020 12:00:00 AM EST eCW1 ([facility]) mesalamine 1000 MG Rectal Suppository 04/12/2020 12:00:00 AM EST eCW1 ([facility]) Doxycycline Monohydrate 100 MG Oral Capsule 04/12/2020 12:00:00 AM EST eCW1 ([facility]) Mometasone Furoate 50 MCG/ACT 04/12/2020 12:00:00 AM EST eCW1 ([facility]) mesalamine 1000 MG Rectal Suppository 04/12/2020 12:00:00 AM EST eCW1 ([facility]) Doxycycline Monohydrate 100 MG Oral Capsule 04/12/2020 12:00:00 AM EST eCW1 ([facility]) Mometasone Furoate 50 MCG/ACT 04/12/2020 12:00:00 AM EST eCW1 ([facility]) mesalamine 1000 MG Rectal Suppository 04/12/2020 12:00:00 AM EST eCW1 ([facility]) doxycycline hyclate 100 MG Oral Tablet 03/20/2020 12:00:00 AM EST eCW1 ([facility]) doxycycline hyclate 100 MG Oral Tablet 03/20/2020 12:00:00 AM EST eCW1 ([facility]) doxycycline hyclate 100 MG Oral Tablet 03/20/2020 12:00:00 AM EST eCW1 ([facility]) doxycycline hyclate 100 MG Oral Tablet 03/20/2020 12:00:00 AM EST eCW1 ([facility]) doxycycline hyclate 100 MG Oral Tablet 03/20/2020 12:00:00 AM EST eCW1 ([facility]) 3 ML liraglutide 6 MG/ML Pen Injector [Victoza] 03/17/2020 12:00:00 AM EST eCW1 ([facility]) 3 ML liraglutide 6 MG/ML Pen Injector [Victoza] 03/17/2020 12:00:00 AM EST eCW1 ([facility]) 3 ML liraglutide 6 MG/ML Pen Injector [Victoza] 03/17/2020 12:00:00 AM EST eCW1 ([facility]) 3 ML liraglutide 6 MG/ML Pen Injector [Victoza] 03/17/2020 12:00:00 AM EST eCW1 ([facility]) 3 ML liraglutide 6 MG/ML Pen Injector [Victoza] 03/17/2020 12:00:00 AM EST eCW1 ([facility]) 3 ML liraglutide 6 MG/ML Pen Injector [Victoza] 03/17/2020 12:00:00 AM EST eCW1 ([facility]) 3 ML liraglutide 6 MG/ML Pen Injector [Victoza] 03/17/2020 12:00:00 AM EST eCW1 ([facility]) 3 ML liraglutide 6 MG/ML Pen Injector [Victoza] 03/17/2020 12:00:00 AM EST eCW1 ([facility]) 3 ML liraglutide 6 MG/ML Pen Injector [Victoza] 03/17/2020 12:00:00 AM EST eCW1 ([facility]) 3 ML liraglutide 6 MG/ML Pen Injector [Victoza] 03/17/2020 12:00:00 AM EST eCW1 ([facility]) 3 ML liraglutide 6 MG/ML Pen Injector [Victoza] 03/17/2020 12:00:00 AM EST eCW1 ([facility]) 3 ML liraglutide 6 MG/ML Pen Injector [Victoza] 03/17/2020 12:00:00 AM EST eCW1 ([facility]) 3 ML liraglutide 6 MG/ML Pen Injector [Victoza] 03/17/2020 12:00:00 AM EST eCW1 ([facility]) 3 ML liraglutide 6 MG/ML Pen Injector [Victoza] 03/17/2020 12:00:00 AM EST eCW1 ([facility]) 3 ML liraglutide 6 MG/ML Pen Injector [Victoza] 03/17/2020 12:00:00 AM EST eCW1 ([facility]) 3 ML liraglutide 6 MG/ML Pen Injector [Victoza] 03/17/2020 12:00:00 AM EST eCW1 ([facility]) 3 ML liraglutide 6 MG/ML Pen Injector [Victoza] 03/17/2020 12:00:00 AM EST eCW1 ([facility]) Sodium Chloride 0.9 % 03/17/2020 12:00:00 AM EST eCW1 ([facility]) 3 ML liraglutide 6 MG/ML Pen Injector [Victoza] 03/17/2020 12:00:00 AM EST eCW1 ([facility]) ciclopirox 80 MG/ML Topical Solution 03/17/2020 12:00:00 AM EST eCW1 ([facility]) Doxycycline Monohydrate 100 MG Oral Tablet 01/24/2020 12:00:00 AM E DT eCW1 ([facility]) Doxycycline Monohydrate 100 MG Oral Tablet 01/24/2020 12:00:00 AM E DT eCW1 ([facility])
--- NOTE | 2021-03-23 19:11 | REPVR ---
PROCEDURE INFORMATION: Exam: CT Abdomen And Pelvis Without Contrast Exam date and time: 03/23/2021 6:25 PM Age: 60 years old Clinical indication: Abdominal pain; Generalized; Prior surgery; Surgery date: 6+ months; Surgery type: Ostomy, several resections; Additional info: Abd pain, swelling, no out put in ostomy bag x 2 d TECHNIQUE: Imaging protocol: Computed tomography of the abdomen and pelvis without contrast. Radiation optimization: All CT scans at this facility use at least one of these dose optimization techniques: automated exposure control; mA and/or kV adjustment per patient size (includes targeted exams where dose is matched to clinical indication); or iterative reconstruction. COMPARISON: CT ABD PELVIS W/O CONTRAST 01/31/2021 11:48 AM FINDINGS: Lungs: Parenchymal stranding left lung base likely fibrotic, stable in comparison to the prior study of 01/31/2021. Diaphragm: A small sliding hiatal hernia is present. Liver: Focal calcifications demonstrated along the posterior aspect of segment 2 left lobe of the liver. Stable appearance of hyperdensity demonstrating along the anterior patent margin overlying the lateral medial segments of the left lobe of the liver. Hepatomegaly. Gallbladder and bile ducts: There has been a cholecystectomy. Pancreas: There is diffuse pancreatic atrophy. There is diffuse pancreatic atrophy. Spleen: Normal. No splenomegaly. Adrenal glands: Normal. No mass. Kidneys and ureters: Bilateral nonobstructive renal calculi. Stomach and bowel: Status post colectomy with a Maribell pouch construction. 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 Previously demonstrated inflammatory changes in the left rectus muscle and anterior abdominal wall have cleared. No significant bowel obstruction demonstrated. No obstructing mass visualized however evaluation of the bowel limited by lack of oral contrast media. Appendix: No evidence of appendicitis. Intraperitoneal space: Unremarkable. No free air. No significant fluid collection. Vasculature: Unremarkable. No abdominal aortic aneurysm. Lymph nodes: Unremarkable. No enlarged lymph nodes. Urinary bladder: Unremarkable as visualized. Reproductive: There has been a hysterectomy. Bones/joints: Unremarkable. No acute fracture. Soft tissues: See "Stomach and bowel" finding. IMPRESSION: 1. There has been a cholecystectomy. 2. There has been a hysterectomy. 3. There is diffuse pancreatic atrophy. 4. Bilateral nonobstructive renal calculi. 5. Stable appearance of hyperdensity demonstrating along the anterior patent margin overlying the lateral medial segments of the left lobe of the liver. 6. A small sliding hiatal hernia is present. 7. There is diffuse pancreatic atrophy. 8. Status post colectomy with a Maribell pouch construction. 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 Previously demonstrated inflammatory changes in the left rectus muscle and anterior abdominal wall have cleared. 9. No significant bowel obstruction demonstrated. No obstructing mass visualized however evaluation of the bowel limited by lack of oral contrast media. Electronically signed by: Luis Eduardo Duong On 03/23/2021 19:11:12 PM
[2021-03-23 20:31] LABS: MAGNESIUM LEVEL 1.5 MG/DL (1.8-2.4)
[2021-03-23 21:42] VITALS: BP 129/71
== END 2021-03-23 21:44 | disposition home or self-care (01) ==
LOC: M ED 10:03
DX: R10.9 Unspecified abdominal pain (principal); K76.0 Fatty (change of) liver, not elsewhere classified; E11.9 Type 2 diabetes mellitus without complications; K21.9 Gastro-esophageal reflux disease without esophagitis; Z90.49 Acquired absence of other specified parts of digestive tract; N20.0 Calculus of kidney; K44.9 Diaphragmatic hernia without obstruction or gangrene; Z79.890 Hormone replacement therapy; Z79.4 Long term (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; Z79.899 Other long term (current) drug therapy; Z91.041 Radiographic dye allergy status; Z91.018 Allergy to other foods; Z88.0 Allergy status to penicillin; Z88.2 Allergy status to sulfonamides; Z91.89 Other specified personal risk factors, not elsewhere classified; Z88.8 Allergy status to other drugs, medicaments and biological substances; Z88.1 Allergy status to other antibiotic agents; Z91.040 Latex allergy status; Z88.5 Allergy status to narcotic agent; Z91.02 Food additives allergy status
CPT/HCPCS: 74176; 80048; 80076; 83690; 83735; 85025; 96374; 99284; J1170

== ENCOUNTER 2021-03-30 09:26 | Emergency (ER) | payer OTHER ==
[~2021-03-30] VITALS: Ht 170.2 cm; Wt 76.6 kg
[~2021-03-30 09:26] MED LIST changes: -DOXY-443 PO; -ONDA4INJ4 SC
[2021-03-30] MEDS ORDERED: HYDROMORPHONE HCL 0.5 MG/ 0.5 ML SYRINGE (J1170 PER 1) IV ONE (11:05)
[2021-03-30] MEDS ORDERED: NS 500 ML IV ONE (11:05)
[2021-03-30 12:52] LABS: BASO % 0.5 % (0.0-1.0); EOS # 0.1 10^3/uL (0.0-0.5); EOS % 1.5 % (0.0-3.0); HEMATOCRIT 34.1 % (36.0-47.0); HEMOGLOBIN 10.8 g/dl (12.0-15.5); LYMPH # 1.3 10^3/uL (1.5-5.0); LYMPH % 24.2 % (24.0-44.0); MEAN CORPUSCULAR HGB CONC 31.7 g/dl (32.0-36.5); MEAN CORPUSCULAR VOLUME 94.7 fl (80.0-96.0); MONO # 0.4 10^3/uL (0.0-0.8); MONO % 7.3 % (2.0-8.0); NEUTROPHILS # 3.6 10^3/uL (1.5-8.5); NEUTROPHILS % 66.1 % (36.0-66.0); PLATELET COUNT, AUTOMATED 208 10^3/uL (150-450); WHITE BLOOD COUNT 5.5 10^3/uL (4.0-10.0)
[2021-03-30 13:37] LABS: ALBUMIN 3.2 GM/DL (3.2-5.2); ALT/SGPT 32 U/L (12-78); BILIRUBIN,DIRECT < 0.1 MG/DL (0.0-0.2); BILIRUBIN,TOTAL 0.1 MG/DL (0.2-1.0); BLOOD UREA NITROGEN 9 MG/DL (7-18); CALCIUM LEVEL 9.2 MG/DL (8.8-10.2); CARBON DIOXIDE LEVEL 23 MEQ/L (21-32); CHLORIDE LEVEL 109 MEQ/L (98-107); CREATININE FOR GFR 0.47 MG/DL (0.55-1.30); GLOMERULAR FILTRATION RATE > 60.0 (>45); GLUCOSE, FASTING 144 MG/DL (70-100); LIPASE 105 U/L (73-393); POTASSIUM SERUM 4.2 MEQ/L (3.5-5.1); SODIUM LEVEL 139 MEQ/L (136-145); TOTAL PROTEIN 7.3 GM/DL (6.4-8.2)
[2021-03-30] MEDS ORDERED: DOXY-443 PO (13:49)
[2021-03-30 14:37] VITALS: BP 132/70
== END 2021-03-30 14:43 | disposition home or self-care (01) ==
LOC: M ED 09:26
DX: R10.9 Unspecified abdominal pain (principal); J01.90 Acute sinusitis, unspecified; E11.9 Type 2 diabetes mellitus without complications; K21.9 Gastro-esophageal reflux disease without esophagitis; Z90.49 Acquired absence of other specified parts of digestive tract; Z88.0 Allergy status to penicillin; Z88.1 Allergy status to other antibiotic agents; Z88.2 Allergy status to sulfonamides; Z88.8 Allergy status to other drugs, medicaments and biological substances; Z91.041 Radiographic dye allergy status; Z91.048 Other nonmedicinal substance allergy status; Z79.4 Long term (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; Z79.899 Other long term (current) drug therapy
CPT/HCPCS: 74176; 80048; 80076; 83690; 85025; 96361; 96374; 99284; J1170; J1642

== ENCOUNTER → 2021-03-30 | Outpatient (REF) | payer OTHER ==
[~2021-03-30] MED LIST changes: -CEFD1CAP8 PO; +CEFD300C41 PO; +DOXY-443 PO; +LEVE1INJ5 SC; -LEVE1INJ5 SQ; +ONDA-84 PO; +ONDA4INJ4 SC; -ONDA8TAB10 PO
== END ==
LOC: M SFHCPLAZ 12:56
PROVIDERS: ATTEND Physician Assistant
DX: R50.9 Fever, unspecified (principal); R09.81 Nasal congestion

== ENCOUNTER 2021-04-17 06:49 | Outpatient (CLI) | payer OTHER ==
[~2021-04-17] VITALS: Ht 165.1 cm; Wt 70.5 kg
[~2021-04-17 06:49] MED LIST changes: +CEFD1CAP8 PO; -CEFD300C41 PO; +DOXY-443 PO; -LEVE1INJ5 SC; +LEVE1INJ5 SQ; -ONDA-84 PO; +ONDA8TAB10 PO
[2021-04-17 06:50] VITALS: BP 131/65
[2021-04-17] MEDS ORDERED: SODIUM CHLORIDE 0.9% INJ 10 ML SYR IV SCH (07:30)
[2021-04-17] MEDS ORDERED: SODIUM CHLORIDE 0.9% INJ 10 ML SYR IV PRN (07:30)
[2021-04-17 08:02] LABS: HEMATOCRIT 37.1 % (36.0-47.0); HEMOGLOBIN 11.8 g/dl (12.0-15.5); MEAN CORPUSCULAR HEMOGLOBIN 29.9 pg (27.0-33.0); MEAN CORPUSCULAR HGB CONC 31.8 g/dl (32.0-36.5); MEAN CORPUSCULAR VOLUME 94.2 fl (80.0-96.0); PLATELET COUNT, AUTOMATED 210 10^3/uL (150-450); RED BLOOD COUNT 3.94 10^6/uL (4.00-5.40); WHITE BLOOD COUNT 4.8 10^3/uL (4.0-10.0)
[2021-04-17 08:21] LABS: ALBUMIN 3.3 GM/DL (3.2-5.2); ALT/SGPT 45 U/L (12-78); BILIRUBIN,TOTAL 0.2 MG/DL (0.2-1.0); BLOOD UREA NITROGEN 11 MG/DL (7-18); CALCIUM LEVEL 9.8 MG/DL (8.8-10.2); CARBON DIOXIDE LEVEL 25 MEQ/L (21-32); CHLORIDE LEVEL 104 MEQ/L (98-107); CREATININE FOR GFR 0.45 MG/DL (0.55-1.30); GLOMERULAR FILTRATION RATE > 60.0 (>45); GLUCOSE, FASTING 139 MG/DL (70-100); POTASSIUM SERUM 4.1 MEQ/L (3.5-5.1); SODIUM LEVEL 135 MEQ/L (136-145)
[2021-04-17 09:09] LABS: HEMOGLOBIN A1c 7.5 %
== END 2021-04-17 07:35 | disposition home or self-care (01) ==
LOC: M INFU 06:49
PROVIDERS: ATTEND Family Medicine
DX: E83.42 Hypomagnesemia (principal); E11.65 Type 2 diabetes mellitus with hyperglycemia; D63.8 Anemia in other chronic diseases classified elsewhere
CPT/HCPCS: 36591; 80053; 83036; 85027; 96523; J1642

== ENCOUNTER → 2021-04-18 | Outpatient (CLI) | payer OTHER ==
--- NOTE | 2021-04-18 10:23 | REPMRS ---
Patient History The patient states she has not had a clinical breast exam in over a year. Patient is postmenopausal and is nulliparous. Family history of breast cancer at age 50 or over in maternal aunt, breast cancer at age 50 or over in maternal aunt, breast cancer at age 50 or over in maternal aunt, breast cancer at age 50 or over in maternal aunt, breast cancer at age 50 or over in maternal aunt, breast cancer at age 61 in paternal aunt. Benign radio exam breast specimen of the right breast, February 03, 2014. Benign stereotatic loc for ea lesion of the right breast, February 03, 2014. No Hormone Replacement Therapy Patient states no breast complaints today. Patient has signed MRS History Sheet. Pfizer 06/2020,07/2020, moderna booster 04/06/21 L arm. Digital Woman Screen Mammo: April 18, 2021 - Exam #: [id number] Bilateral CC and MLO view(s) were taken. Technologist: Talya Sevilla, Technologist Prior study comparison: March 06, 2020, bilateral digital woman screen mammo performed at [facility]. January 01, 2018, bilateral digital mammo screening bilat, performed at [facility]. FINDINGS: There are scattered fibroglandular densities. Screening. Digital screening (2D) mammography was performed bilaterally in the CC and MLO projections. Additionally, breast tomosynthesis (3D mammography) was performed bilaterally in the CC and MLO projections. Todays exam was compared to the prior exam/exams. By history, the patient has no complaints of a palpable breast abnormality or other significant breast complaints. The breasts are unchanged in size and shape. Once again, stable benign appearing calcifications are seen.There are no cinyd-soft tissue densities or spiculated masses. There is no internal architectural distortion. There are no suspicious cindy-calcific clusters. Skin thickening or nipple retraction is not present. IMPRESSION: BI-RADS Category 2- Benign Findings. There is no evidence of malignant alteration of the breasts. Followup examination recommended in one year. The Volpara volumetric breast density category is B, there are scattered areas of fibroglandular densities. This mammogram was read with the assistance of [employer],an FDA approved computer aided detection system for mammography. The lifetime Tyrer-Cuzick score is 7.9 % Negative x-ray reports should not delay surgical consultation if a dominant or clinically suspicious mass is present. Not all breast cancers can be identified by mammography. Therefore, we recommend that you continue to perform regular breast self-examination and physical examination and then promptly contact your physician of any concerns or changes. Adenosis and dense breasts may obscure an underlying neoplasm. Assessment: BI-RADS/ACR category 2 mammogram. Benign Findings. Recommendation Routine screening mammogram of both breasts in 1 year. Electronically Signed By: Jeff Benz DO 04/18/21 1020
== END ==
LOC: M WHC 09:20
PROVIDERS: ATTEND Family Medicine
DX: Z12.31 Encounter for screening mammogram for malignant neoplasm of breast (principal)

== ENCOUNTER 2021-04-29 18:36 | Inpatient (IN) | payer OTHER ==
[~2021-04-29] VITALS: Ht 170.2 cm; Wt 89.6 kg
[~2021-04-29 18:36] MED LIST changes: -CEFD1CAP8 PO; +CEFD300C41 PO; +LEVE1INJ5 SC; -LEVE1INJ5 SQ; +ONDA-84 PO; -ONDA8TAB10 PO
[2021-04-29] MEDS ORDERED: ONDANSETRON 4MG/2ML VIAL IV ONE (21:05)
[2021-04-29 21:10] LABS: BASO % 0.3 % (0.0-1.0); EOS # 0.1 10^3/uL (0.0-0.5); EOS % 1.7 % (0.0-3.0); HEMATOCRIT 36.5 % (36.0-47.0); HEMOGLOBIN 11.8 g/dl (12.0-15.5); LYMPH # 1.5 10^3/uL (1.5-5.0); LYMPH % 26.3 % (24.0-44.0); MEAN CORPUSCULAR HEMOGLOBIN 30.3 pg (27.0-33.0); MEAN CORPUSCULAR HGB CONC 32.3 g/dl (32.0-36.5); MEAN CORPUSCULAR VOLUME 93.8 fl (80.0-96.0); MONO # 0.5 10^3/uL (0.0-0.8); MONO % 8.7 % (2.0-8.0); NEUTROPHILS # 3.6 10^3/uL (1.5-8.5); NEUTROPHILS % 62.7 % (36.0-66.0); PLATELET COUNT, AUTOMATED 223 10^3/uL (150-450); RED BLOOD COUNT 3.89 10^6/uL (4.00-5.40); WHITE BLOOD COUNT 5.8 10^3/uL (4.0-10.0)
[2021-04-29] MEDS: HYDROMORPHONE HCL 0.5 MG/ 0.5 ML SYRINGE (J1170 PER 1) IV PRN (21:13)
[2021-04-29 21:16] LABS: ALBUMIN 3.3 GM/DL (3.2-5.2); ALT/SGPT 41 U/L (12-78); BILIRUBIN,DIRECT < 0.1 MG/DL (0.0-0.2); BILIRUBIN,TOTAL < 0.1 MG/DL (0.2-1.0); BLOOD UREA NITROGEN 12 MG/DL (7-18); CALCIUM LEVEL 10.5 MG/DL (8.8-10.2); CARBON DIOXIDE LEVEL 27 MEQ/L (21-32); CHLORIDE LEVEL 103 MEQ/L (98-107); CREATININE FOR GFR 0.66 MG/DL (0.55-1.30); GLOMERULAR FILTRATION RATE > 60.0 (>45); GLUCOSE, FASTING 198 MG/DL (70-100); LIPASE 142 U/L (73-393); POTASSIUM SERUM 3.8 MEQ/L (3.5-5.1); SODIUM LEVEL 138 MEQ/L (136-145); TOTAL PROTEIN 7.6 GM/DL (6.4-8.2)
[2021-04-29] MEDS ORDERED: NS 1,000 ML IV ONE (21:30)
[2021-04-30] MEDS ORDERED: LIDOCAINE VISCOUS 2% SOLN 15ML UDC EXT ONE (00:35)
[2021-04-30] MEDS: HYDROMORPHONE HCL 0.5 MG/ 0.5 ML SYRINGE (J1170 PER 1) IV PRN ×6 (01:08→20:59)
[2021-04-30] MEDS ORDERED: HOME MED LIST COMPLETE! XX SCH (01:10)
[2021-04-30] MEDS ORDERED: GLUCAGON INJ 1MG VIAL SC PRN (02:05)
[2021-04-30] MEDS ORDERED: GLUCOSE 4GM CHEW TABLET PO PRN (02:05)
[2021-04-30] MEDS ORDERED: DEXTROSE 50% 50 ML SYRINGE IV PRN (02:05)
[2021-04-30 03:30] VITALS: BP 144/73
[2021-04-30] MEDS ORDERED: SODIUM CHLORIDE 0.9% INJ 10 ML SYR IV PRN (04:15)
[2021-04-30] MEDS ORDERED: ALBUTEROL 90 MCG/ACT 8GM HFA INHALER INH PRN (04:25)
[2021-04-30] MEDS ORDERED: NYSTATIN 100,000 UNITS/GM TOPICAL PWD 15 GM TOP PRN (04:25)
[2021-04-30] MEDS: ONDANSETRON 4MG/2ML VIAL IV PRN ×3 (04:36→20:58)
[2021-04-30] MEDS: D5W/0.9% SODIUM CHLORIDE 1,000 ML IV SCH ×3 (04:56→16:23)
[2021-04-30 06:00] VITALS: BP 146/76
[2021-04-30] MEDS: HumaLOG INSULIN (NovoLOG) PER UNIT SC SCH ×3 (06:35→17:09)
[2021-04-30] MEDS: SODIUM CHLORIDE 0.9% INJ 10 ML SYR IV SCH (08:10)
[2021-04-30] MEDS: PANTOPRAZOLE 40MG VIAL (C9113 PER 1) IV SCH ×2 (08:35→20:58)
[2021-04-30] MEDS ORDERED: AMITRIPTYLINE 50 MG TAB PO SCH ×2 (09:00→21:00)
[2021-04-30 09:10] LABS: BASO % 0.3 % (0.0-1.0); HEMATOCRIT 35.3 % (36.0-47.0); HEMOGLOBIN 11.5 g/dl (12.0-15.5); LYMPH % 16.1 % (24.0-44.0); MEAN CORPUSCULAR HEMOGLOBIN 30.3 pg (27.0-33.0); MEAN CORPUSCULAR HGB CONC 32.6 g/dl (32.0-36.5); MEAN CORPUSCULAR VOLUME 93.1 fl (80.0-96.0); MONO # 0.5 10^3/uL (0.0-0.8); MONO % 8.3 % (2.0-8.0); NEUTROPHILS # 4.7 10^3/uL (1.5-8.5); NEUTROPHILS % 74.8 % (36.0-66.0); PLATELET COUNT, AUTOMATED 206 10^3/uL (150-450); RED BLOOD COUNT 3.79 10^6/uL (4.00-5.40); WHITE BLOOD COUNT 6.3 10^3/uL (4.0-10.0)
[2021-04-30 09:28] LABS: BLOOD UREA NITROGEN 12 MG/DL (7-18); CALCIUM LEVEL 9.3 MG/DL (8.8-10.2); CARBON DIOXIDE LEVEL 26 MEQ/L (21-32); CHLORIDE LEVEL 106 MEQ/L (98-107); CREATININE FOR GFR 0.62 MG/DL (0.55-1.30); GLOMERULAR FILTRATION RATE > 60.0 (>45); GLUCOSE, FASTING 226 MG/DL (70-100); POTASSIUM SERUM 3.8 MEQ/L (3.5-5.1); SODIUM LEVEL 140 MEQ/L (136-145)
[2021-04-30] MEDS ORDERED: NS 1,000 ML IV ONE (10:00)
[2021-04-30 12:34] LABS: ABG BASE EXCESS -1.8 (-2.0-2.0); ABG HCO3 22.6 MEQ/L (22.0-26.0); ABG PARTIAL PRESSURE CO2 37.2 mmHg (35.0-45.0); ABG PARTIAL PRESSURE O2 103.5 mmHg (75.0-100.0); ABG TOTAL CO2 23.7 MEQ/L (23.0-31.0); ABG pH (ARTERIAL) 7.401 UNITS (7.350-7.450)
[2021-04-30 13:36] LABS: HEMATOCRIT 35.3 % (36.0-47.0); HEMOGLOBIN 11.2 g/dl (12.0-15.5)
[2021-04-30 14:00] VITALS: BP 145/65
[2021-04-30 22:00] VITALS: BP 144/67
[2021-05-01] MEDS: D5W/0.9% SODIUM CHLORIDE 1,000 ML IV SCH ×2 (01:26→17:46)
[2021-05-01] MEDS: HumaLOG INSULIN (NovoLOG) PER UNIT SC SCH ×5 (01:27→17:46)
[2021-05-01] MEDS: HYDROMORPHONE HCL 0.5 MG/ 0.5 ML SYRINGE (J1170 PER 1) IV PRN ×5 (01:29→20:11)
[2021-05-01] MEDS: SODIUM CHLORIDE 0.9% INJ 10 ML SYR IV PRN ×2 (01:48→09:11)
[2021-05-01 01:49] LABS: HEMATOCRIT 33.2 % (36.0-47.0); HEMOGLOBIN 10.5 g/dl (12.0-15.5)
[2021-05-01 06:00] VITALS: BP 134/75
[2021-05-01] MEDS: ONDANSETRON 4MG/2ML VIAL IV PRN ×2 (06:10→12:43)
[2021-05-01] MEDS: PANTOPRAZOLE 40MG VIAL (C9113 PER 1) IV SCH ×2 (08:26→20:09)
[2021-05-01] MEDS: SODIUM CHLORIDE 0.9% INJ 10 ML SYR IV SCH (08:27)
[2021-05-01 10:39] LABS: BASO % 0.4 % (0.0-1.0); EOS # 0.1 10^3/uL (0.0-0.5); EOS % 0.9 % (0.0-3.0); HEMATOCRIT 34.8 % (36.0-47.0); HEMOGLOBIN 11.1 g/dl (12.0-15.5); LYMPH # 1.3 10^3/uL (1.5-5.0); LYMPH % 18.8 % (24.0-44.0); MEAN CORPUSCULAR HEMOGLOBIN 30.5 pg (27.0-33.0); MEAN CORPUSCULAR HGB CONC 31.9 g/dl (32.0-36.5); MEAN CORPUSCULAR VOLUME 95.6 fl (80.0-96.0); MONO # 0.6 10^3/uL (0.0-0.8); MONO % 9.2 % (2.0-8.0); NEUTROPHILS # 4.8 10^3/uL (1.5-8.5); NEUTROPHILS % 70.4 % (36.0-66.0); PLATELET COUNT, AUTOMATED 192 10^3/uL (150-450); RED BLOOD COUNT 3.64 10^6/uL (4.00-5.40); WHITE BLOOD COUNT 6.8 10^3/uL (4.0-10.0)
[2021-05-01 11:14] LABS: ALBUMIN 2.8 GM/DL (3.2-5.2); ALT/SGPT 33 U/L (12-78); BILIRUBIN,TOTAL 0.2 MG/DL (0.2-1.0); BLOOD UREA NITROGEN 7 MG/DL (7-18); CALCIUM LEVEL 8.7 MG/DL (8.8-10.2); CARBON DIOXIDE LEVEL 27 MEQ/L (21-32); CHLORIDE LEVEL 109 MEQ/L (98-107); CREATININE FOR GFR 0.42 MG/DL (0.55-1.30); GLOMERULAR FILTRATION RATE > 60.0 (>45); GLUCOSE, FASTING 141 MG/DL (70-100); SODIUM LEVEL 140 MEQ/L (136-145)
[2021-05-01 14:00] VITALS: BP 135/74
[2021-05-01] MEDS ORDERED: ALTEPLASE 2MG/2ML VIAL XX ONE (15:00)
[2021-05-01] MEDS ORDERED: POTASSIUM CHLORIDE 10MEQ SR TABLET PO ONE (18:20)
[2021-05-01] MEDS: KCL 10MEQ/100ML SWI (KRUN) 10 MEQ in IV 1 EA IV SCH ×2 (18:52→20:09)
[2021-05-01 22:00] VITALS: BP 133/73
[2021-05-02] MEDS: ONDANSETRON 4MG/2ML VIAL IV PRN ×4 (01:58→23:11)
[2021-05-02] MEDS: HYDROMORPHONE HCL 0.5 MG/ 0.5 ML SYRINGE (J1170 PER 1) IV PRN ×5 (02:01→20:24)
[2021-05-02] MEDS: D5W/0.9% SODIUM CHLORIDE 1,000 ML IV SCH (04:06)
[2021-05-02 05:21] LABS: BASO % 0.5 % (0.0-1.0); EOS # 0.1 10^3/uL (0.0-0.5); EOS % 1.3 % (0.0-3.0); HEMATOCRIT 32.7 % (36.0-47.0); HEMOGLOBIN 10.6 g/dl (12.0-15.5); LYMPH # 1.3 10^3/uL (1.5-5.0); LYMPH % 21.1 % (24.0-44.0); MEAN CORPUSCULAR HEMOGLOBIN 30.7 pg (27.0-33.0); MEAN CORPUSCULAR HGB CONC 32.4 g/dl (32.0-36.5); MEAN CORPUSCULAR VOLUME 94.8 fl (80.0-96.0); MONO # 0.6 10^3/uL (0.0-0.8); MONO % 9.8 % (2.0-8.0); NEUTROPHILS # 4.1 10^3/uL (1.5-8.5); PLATELET COUNT, AUTOMATED 174 10^3/uL (150-450); RED BLOOD COUNT 3.45 10^6/uL (4.00-5.40); WHITE BLOOD COUNT 6.1 10^3/uL (4.0-10.0)
[2021-05-02 05:52] LABS: ALBUMIN 2.6 GM/DL (3.2-5.2); ALT/SGPT 28 U/L (12-78); BILIRUBIN,TOTAL 0.2 MG/DL (0.2-1.0); BLOOD UREA NITROGEN 4 MG/DL (7-18); CALCIUM LEVEL 8.1 MG/DL (8.8-10.2); CARBON DIOXIDE LEVEL 27 MEQ/L (21-32); CHLORIDE LEVEL 107 MEQ/L (98-107); CREATININE FOR GFR 0.46 MG/DL (0.55-1.30); GLOMERULAR FILTRATION RATE > 60.0 (>45); GLUCOSE, FASTING 252 MG/DL (70-100); POTASSIUM SERUM 2.9 MEQ/L (3.5-5.1); SODIUM LEVEL 140 MEQ/L (136-145); TOTAL PROTEIN 6.3 GM/DL (6.4-8.2)
[2021-05-02] MEDS ORDERED: POTASSIUM CHLORIDE 10MEQ SR TABLET PO ONE ×2 (06:00→10:00)
[2021-05-02] MEDS: HumaLOG INSULIN (NovoLOG) PER UNIT SC SCH ×4 (06:05→18:25)
[2021-05-02 06:36] VITALS: BP 136/74
[2021-05-02] MEDS: KCL 10MEQ/100ML SWI (KRUN) 10 MEQ in IV 1 EA IV SCH ×3 (06:46→09:56)
[2021-05-02] MEDS: KCL 20MEQ IN D5/NS 1000ML 1,000 ML IV SCH ×2 (08:37→18:25)
[2021-05-02] MEDS: PANTOPRAZOLE 40MG VIAL (C9113 PER 1) IV SCH ×2 (08:38→20:56)
[2021-05-02] MEDS: SODIUM CHLORIDE 0.9% INJ 10 ML SYR IV SCH (08:39)
[2021-05-02 14:00] VITALS: BP 144/69
[2021-05-02 14:57] LABS: BLOOD UREA NITROGEN 3 MG/DL (7-18); CALCIUM LEVEL 8.1 MG/DL (8.8-10.2); CARBON DIOXIDE LEVEL 26 MEQ/L (21-32); CHLORIDE LEVEL 106 MEQ/L (98-107); CREATININE FOR GFR 0.51 MG/DL (0.55-1.30); GLOMERULAR FILTRATION RATE > 60.0 (>45); GLUCOSE, FASTING 236 MG/DL (70-100); POTASSIUM SERUM 3.2 MEQ/L (3.5-5.1); SODIUM LEVEL 137 MEQ/L (136-145)
[2021-05-02 22:00] VITALS: BP 138/75
[2021-05-03] MEDS: HYDROMORPHONE HCL 0.5 MG/ 0.5 ML SYRINGE (J1170 PER 1) IV PRN ×2 (01:02→05:24)
[2021-05-03] MEDS: KCL 20MEQ IN D5/NS 1000ML 1,000 ML IV SCH ×2 (03:46→13:30)
[2021-05-03 04:58] VITALS: BP 138/76
[2021-05-03] MEDS: ONDANSETRON 4MG/2ML VIAL IV PRN (05:23)
[2021-05-03 05:35] LABS: BASO % 0.3 % (0.0-1.0); EOS # 0.1 10^3/uL (0.0-0.5); EOS % 1.7 % (0.0-3.0); HEMOGLOBIN 10.6 g/dl (12.0-15.5); LYMPH # 1.1 10^3/uL (1.5-5.0); LYMPH % 16.9 % (24.0-44.0); MEAN CORPUSCULAR HEMOGLOBIN 30.1 pg (27.0-33.0); MEAN CORPUSCULAR HGB CONC 32.1 g/dl (32.0-36.5); MEAN CORPUSCULAR VOLUME 93.8 fl (80.0-96.0); MONO # 0.7 10^3/uL (0.0-0.8); MONO % 10.2 % (2.0-8.0); NEUTROPHILS # 4.6 10^3/uL (1.5-8.5); NEUTROPHILS % 70.7 % (36.0-66.0); PLATELET COUNT, AUTOMATED 195 10^3/uL (150-450); RED BLOOD COUNT 3.52 10^6/uL (4.00-5.40); WHITE BLOOD COUNT 6.5 10^3/uL (4.0-10.0)
[2021-05-03 05:56] LABS: ALBUMIN 2.6 GM/DL (3.2-5.2); ALT/SGPT 28 U/L (12-78); BILIRUBIN,TOTAL 0.2 MG/DL (0.2-1.0); BLOOD UREA NITROGEN 2 MG/DL (7-18); CARBON DIOXIDE LEVEL 26 MEQ/L (21-32); CHLORIDE LEVEL 105 MEQ/L (98-107); CREATININE FOR GFR 0.49 MG/DL (0.55-1.30); GLOMERULAR FILTRATION RATE > 60.0 (>45); GLUCOSE, FASTING 286 MG/DL (70-100); MAGNESIUM LEVEL 1.4 MG/DL (1.8-2.4); POTASSIUM SERUM 3.3 MEQ/L (3.5-5.1); SODIUM LEVEL 137 MEQ/L (136-145); TOTAL PROTEIN 6.4 GM/DL (6.4-8.2)
[2021-05-03 05:59] LABS: HEMOGLOBIN A1c 7.9 %
[2021-05-03] MEDS: HumaLOG INSULIN (NovoLOG) PER UNIT SC SCH ×3 (05:59→12:19)
[2021-05-03] MEDS: MAG SULF 1GM/100ML (MAG RUN) 1 GM in IV 1 EA IV SCH ×2 (06:36→08:55)
[2021-05-03] MEDS ORDERED: POTASSIUM CHLORIDE 10MEQ SR TABLET PO ONE (07:15)
[2021-05-03] MEDS: PANTOPRAZOLE 40MG VIAL (C9113 PER 1) IV SCH (08:50)
[2021-05-03] MEDS ORDERED: HEPARIN SOD (PORCINE) 5000UNITS/ML 1ML VIAL/SYRINGE SQ SCH (09:00)
[2021-05-03] MEDS: SODIUM CHLORIDE 0.9% INJ 10 ML SYR IV SCH (09:00)
[2021-05-03] MEDS: KCL 10MEQ/100ML SWI (KRUN) 10 MEQ in IV 1 EA IV SCH ×4 (10:02→13:21)
[2021-05-03] MEDS ORDERED: HYDROmorphone 2 MG TAB PO PRN (11:00)
[2021-05-03 14:00] VITALS: BP 138/74
[2021-05-03] MEDS: SODIUM CHLORIDE 0.9% INJ 10 ML SYR IV PRN ×2 (14:33→15:43)
[2021-05-03 15:10] LABS: BLOOD UREA NITROGEN 3 MG/DL (7-18); CALCIUM LEVEL 8.3 MG/DL (8.8-10.2); CARBON DIOXIDE LEVEL 26 MEQ/L (21-32); CHLORIDE LEVEL 104 MEQ/L (98-107); CREATININE FOR GFR 0.58 MG/DL (0.55-1.30); GLOMERULAR FILTRATION RATE > 60.0 (>45); GLUCOSE, FASTING 248 MG/DL (70-100); MAGNESIUM LEVEL 1.9 MG/DL (1.8-2.4); POTASSIUM SERUM 3.9 MEQ/L (3.5-5.1); SODIUM LEVEL 137 MEQ/L (136-145)
[2021-05-03] MEDS ORDERED: DILA2TAB6 PO (15:47)
== END 2021-05-03 16:30 | disposition home or self-care (01) | DRG 247 ==
LOC: EDBD 18:36 → M ED 18:36 → M ED INP 04-30 02:05 → ENRESERV 04-30 02:34 → M MSPAV 04-30 03:23
PROVIDERS: ADMIT Family Medicine; ATTEND Family Medicine
DX: K56.600 Partial intestinal obstruction, unspecified as to cause (principal); E83.42 Hypomagnesemia; E11.9 Type 2 diabetes mellitus without complications; D64.9 Anemia, unspecified; G89.4 Chronic pain syndrome; E87.6 Hypokalemia; Z93.3 Colostomy status; Z79.4 Long term (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; Z79.899 Other long term (current) drug therapy; Z88.0 Allergy status to penicillin; Z88.1 Allergy status to other antibiotic agents; Z88.2 Allergy status to sulfonamides; Z88.5 Allergy status to narcotic agent; Z88.6 Allergy status to analgesic agent; Z88.8 Allergy status to other drugs, medicaments and biological substances; Z91.041 Radiographic dye allergy status; Z91.040 Latex allergy status; Z91.018 Allergy to other foods; Z90.79 Acquired absence of other genital organ(s); Z90.49 Acquired absence of other specified parts of digestive tract

== ENCOUNTER 2021-05-08 03:24 | Inpatient (IN) | payer OTHER ==
[~2021-05-08] VITALS: Ht 170.2 cm; Wt 78.3 kg
[2021-05-08 06:46] LABS: BASO % 0.3 % (0.0-1.0); EOS % 0.3 % (0.0-3.0); HEMATOCRIT 39.9 % (36.0-47.0); HEMOGLOBIN 12.9 g/dl (12.0-15.5); LYMPH # 0.5 10^3/uL (1.5-5.0); LYMPH % 6.2 % (24.0-44.0); MEAN CORPUSCULAR HEMOGLOBIN 29.8 pg (27.0-33.0); MEAN CORPUSCULAR HGB CONC 32.3 g/dl (32.0-36.5); MEAN CORPUSCULAR VOLUME 92.1 fl (80.0-96.0); MONO # 0.7 10^3/uL (0.0-0.8); MONO % 8.6 % (2.0-8.0); NEUTROPHILS # 6.5 10^3/uL (1.5-8.5); NEUTROPHILS % 84.2 % (36.0-66.0); PLATELET COUNT, AUTOMATED 271 10^3/uL (150-450); RED BLOOD COUNT 4.33 10^6/uL (4.00-5.40); WHITE BLOOD COUNT 7.7 10^3/uL (4.0-10.0)
[2021-05-08 07:01] LABS: ALBUMIN 3.5 GM/DL (3.2-5.2); ALT/SGPT 32 U/L (12-78); BILIRUBIN,DIRECT < 0.1 MG/DL (0.0-0.2); BILIRUBIN,TOTAL 0.3 MG/DL (0.2-1.0); BLOOD UREA NITROGEN 24 MG/DL (7-18); CALCIUM LEVEL 11.4 MG/DL (8.8-10.2); CARBON DIOXIDE LEVEL 27 MEQ/L (21-32); CHLORIDE LEVEL 97 MEQ/L (98-107); CREATININE FOR GFR 0.88 MG/DL (0.55-1.30); GLOMERULAR FILTRATION RATE > 60.0 (>45); GLUCOSE, FASTING 331 MG/DL (70-100); LIPASE 88 U/L (73-393); POTASSIUM SERUM 5.7 MEQ/L (3.5-5.1); SODIUM LEVEL 132 MEQ/L (136-145); TOTAL PROTEIN 8.5 GM/DL (6.4-8.2)
[2021-05-08] MEDS ORDERED: NS 1,000 ML IV ONE (07:55)
[2021-05-08] MEDS ORDERED: ONDANSETRON 4MG/2ML VIAL IV ONE ×2 (07:55→10:55)
[2021-05-08] MEDS: HYDROMORPHONE HCL 0.5 MG/ 0.5 ML SYRINGE (J1170 PER 1) IV PRN ×5 (08:26→20:38)
[2021-05-08] MEDS ORDERED: LIDOCAINE 2% 5ML JELLY UROJET As Ordered ONE (08:51)
[2021-05-08] MEDS: LIDOCAINE 2% 5ML JELLY UROJET TOP ONE (09:00)
[2021-05-08] MEDS ORDERED: ONDA4INJ4 SC (09:45)
[2021-05-08] MEDS ORDERED: HOME MED LIST COMPLETE! XX SCH (09:45)
[2021-05-08 11:07] LABS: RSV AMPLIFICATION NEGATIVE (NEGATIVE)
[2021-05-08] MEDS ORDERED: ALBUTEROL SULFATE 2.5 MG/0.5 ML INH NEB SOLN INH PRN (11:35)
[2021-05-08 12:03] LABS: BLOOD UREA NITROGEN 24 MG/DL (7-18); CALCIUM LEVEL 10.4 MG/DL (8.8-10.2); CARBON DIOXIDE LEVEL 27 MEQ/L (21-32); CHLORIDE LEVEL 101 MEQ/L (98-107); CREATININE FOR GFR 0.75 MG/DL (0.55-1.30); GLOMERULAR FILTRATION RATE > 60.0 (>45); GLUCOSE, FASTING 284 MG/DL (70-100); POTASSIUM SERUM 4.6 MEQ/L (3.5-5.1); SODIUM LEVEL 135 MEQ/L (136-145)
[2021-05-08] MEDS: D5W/0.45% SODIUM CHLORIDE 1,000 ML IV SCH ×2 (12:58→23:23)
[2021-05-08] MEDS: ALBUTEROL SULFATE 2.5 MG/0.5 ML INH NEB SOLN INH SCH ×3 (15:55→18:26)
[2021-05-08 17:09] VITALS: BP 111/66
[2021-05-08 18:00] VITALS: BP 122/68
[2021-05-08] MEDS ORDERED: GLUCOSE 4GM CHEW TABLET PO PRN (18:10)
[2021-05-08] MEDS ORDERED: DEXTROSE 50% 50 ML SYRINGE IV PRN (18:10)
[2021-05-08] MEDS ORDERED: GLUCAGON INJ 1MG VIAL SC PRN (18:10)
[2021-05-08] MEDS: HumaLOG INSULIN (NovoLOG) PER UNIT SC SCH ×2 (18:27→23:31)
[2021-05-08 21:47] VITALS: BP 107/59
[2021-05-09] MEDS: HYDROMORPHONE HCL 0.5 MG/ 0.5 ML SYRINGE (J1170 PER 1) IV PRN ×7 (01:09→23:45)
[2021-05-09 01:27] VITALS: BP 144/82
[2021-05-09] MEDS: HumaLOG INSULIN (NovoLOG) PER UNIT SC SCH ×4 (05:45→23:45)
[2021-05-09 06:10] LABS: HEMATOCRIT 35.1 % (36.0-47.0); MEAN CORPUSCULAR HEMOGLOBIN 30.2 pg (27.0-33.0); MEAN CORPUSCULAR HGB CONC 31.3 g/dl (32.0-36.5); MEAN CORPUSCULAR VOLUME 96.4 fl (80.0-96.0); PLATELET COUNT, AUTOMATED 221 10^3/uL (150-450); RED BLOOD COUNT 3.64 10^6/uL (4.00-5.40)
[2021-05-09 06:15] VITALS: BP 131/78
[2021-05-09 06:27] LABS: ALBUMIN 2.9 GM/DL (3.2-5.2); ALT/SGPT 23 U/L (12-78); BILIRUBIN,TOTAL 0.3 MG/DL (0.2-1.0); BLOOD UREA NITROGEN 19 MG/DL (7-18); CALCIUM LEVEL 9.4 MG/DL (8.8-10.2); CARBON DIOXIDE LEVEL 29 MEQ/L (21-32); CHLORIDE LEVEL 102 MEQ/L (98-107); CREATININE FOR GFR 0.58 MG/DL (0.55-1.30); GLOMERULAR FILTRATION RATE > 60.0 (>45); GLUCOSE, FASTING 236 MG/DL (70-100); POTASSIUM SERUM 3.7 MEQ/L (3.5-5.1); SODIUM LEVEL 136 MEQ/L (136-145); TOTAL PROTEIN 7.4 GM/DL (6.4-8.2)
[2021-05-09] MEDS: ALBUTEROL SULFATE 2.5 MG/0.5 ML INH NEB SOLN INH SCH ×4 (08:00→20:00)
[2021-05-09] MEDS: ENOXAPARIN 40MG/0.4ML SYRINGE (J1650 PER 10MG) SC SCH (08:57)
[2021-05-09] MEDS: D5W/0.45% SODIUM CHLORIDE 1,000 ML IV SCH ×3 (09:00→23:46)
[2021-05-09 10:00] VITALS: BP 129/78
[2021-05-09] MEDS: ONDANSETRON 4MG/2ML VIAL IV PRN ×3 (11:22→20:37)
[2021-05-09] MEDS: LIDOCAINE 2% 5ML JELLY UROJET TOP ONE (13:51)
[2021-05-09 14:00] VITALS: BP 117/75
[2021-05-09 18:00] VITALS: BP 113/75
[2021-05-09 22:00] VITALS: BP 125/76
[2021-05-10] MEDS: ONDANSETRON 4MG/2ML VIAL IV PRN ×5 (00:54→20:34)
[2021-05-10 02:15] VITALS: BP 129/73
[2021-05-10] MEDS: HYDROMORPHONE HCL 0.5 MG/ 0.5 ML SYRINGE (J1170 PER 1) IV PRN ×6 (03:43→20:35)
[2021-05-10 05:31] LABS: HEMATOCRIT 32.8 % (36.0-47.0); HEMOGLOBIN 10.5 g/dl (12.0-15.5); MEAN CORPUSCULAR HEMOGLOBIN 30.3 pg (27.0-33.0); MEAN CORPUSCULAR VOLUME 94.8 fl (80.0-96.0); PLATELET COUNT, AUTOMATED 193 10^3/uL (150-450); RED BLOOD COUNT 3.46 10^6/uL (4.00-5.40); WHITE BLOOD COUNT 5.4 10^3/uL (4.0-10.0)
[2021-05-10 05:59] LABS: ALBUMIN 2.7 GM/DL (3.2-5.2); ALT/SGPT 25 U/L (12-78); BILIRUBIN,TOTAL 0.2 MG/DL (0.2-1.0); BLOOD UREA NITROGEN 6 MG/DL (7-18); CALCIUM LEVEL 8.6 MG/DL (8.8-10.2); CARBON DIOXIDE LEVEL 28 MEQ/L (21-32); CHLORIDE LEVEL 101 MEQ/L (98-107); CREATININE FOR GFR 0.44 MG/DL (0.55-1.30); GLOMERULAR FILTRATION RATE > 60.0 (>45); GLUCOSE, FASTING 257 MG/DL (70-100); POTASSIUM SERUM 3.3 MEQ/L (3.5-5.1); SODIUM LEVEL 134 MEQ/L (136-145)
[2021-05-10 06:00] VITALS: BP 130/72
[2021-05-10] MEDS: HumaLOG INSULIN (NovoLOG) PER UNIT SC SCH ×3 (06:05→17:41)
[2021-05-10] MEDS: D5W/0.45% SODIUM CHLORIDE 1,000 ML IV SCH (06:07)
[2021-05-10] MEDS: ALBUTEROL SULFATE 2.5 MG/0.5 ML INH NEB SOLN INH SCH ×4 (07:32→17:23)
[2021-05-10] MEDS: ENOXAPARIN 40MG/0.4ML SYRINGE (J1650 PER 10MG) SC SCH (07:33)
[2021-05-10] MEDS: SODIUM CHLORIDE 0.9% INJ 10 ML SYR IV SCH (09:00)
[2021-05-10 10:00] VITALS: BP 131/70
[2021-05-10] MEDS: KCL 20MEQ IN 0.45NS 1000ML 1,000 ML IV SCH ×2 (10:51→18:49)
[2021-05-10] MEDS: KETOROLAC 30 MG/ML 1ML VIAL IV SCH ×2 (12:51→18:10)
[2021-05-10] MEDS: CAPSAICIN 0.025% CR 60 GM TOP SCH (13:00)
[2021-05-10 14:00] VITALS: BP 152/82
[2021-05-10 18:00] VITALS: BP 151/82
[2021-05-10 22:00] VITALS: BP 151/78
[2021-05-11] MEDS: KETOROLAC 30 MG/ML 1ML VIAL IV SCH ×4 (00:28→17:17)
[2021-05-11] MEDS: HumaLOG INSULIN (NovoLOG) PER UNIT SC SCH ×4 (00:40→17:13)
[2021-05-11] MEDS: HYDROMORPHONE HCL 0.5 MG/ 0.5 ML SYRINGE (J1170 PER 1) IV PRN ×6 (00:41→23:18)
[2021-05-11] MEDS: CAPSAICIN 0.025% CR 60 GM TOP SCH ×3 (00:43→20:15)
[2021-05-11 02:00] VITALS: BP 150/78
[2021-05-11] MEDS: KCL 20MEQ IN 0.45NS 1000ML 1,000 ML IV SCH ×4 (03:42→20:25)
[2021-05-11 05:39] LABS: HEMATOCRIT 33.3 % (36.0-47.0); HEMOGLOBIN 10.8 g/dl (12.0-15.5); MEAN CORPUSCULAR HEMOGLOBIN 30.3 pg (27.0-33.0); MEAN CORPUSCULAR HGB CONC 32.4 g/dl (32.0-36.5); MEAN CORPUSCULAR VOLUME 93.3 fl (80.0-96.0); PLATELET COUNT, AUTOMATED 204 10^3/uL (150-450); RED BLOOD COUNT 3.57 10^6/uL (4.00-5.40); WHITE BLOOD COUNT 4.9 10^3/uL (4.0-10.0)
[2021-05-11 06:00] VITALS: BP 149/76
[2021-05-11 06:14] LABS: ALBUMIN 2.7 GM/DL (3.2-5.2); ALT/SGPT 29 U/L (12-78); BILIRUBIN,TOTAL 0.2 MG/DL (0.2-1.0); BLOOD UREA NITROGEN 4 MG/DL (7-18); CALCIUM LEVEL 8.5 MG/DL (8.8-10.2); CARBON DIOXIDE LEVEL 28 MEQ/L (21-32); CHLORIDE LEVEL 101 MEQ/L (98-107); CREATININE FOR GFR 0.36 MG/DL (0.55-1.30); GLOMERULAR FILTRATION RATE > 60.0 (>45); GLUCOSE, FASTING 183 MG/DL (70-100); POTASSIUM SERUM 3.8 MEQ/L (3.5-5.1); SODIUM LEVEL 135 MEQ/L (136-145); TOTAL PROTEIN 6.7 GM/DL (6.4-8.2)
[2021-05-11] MEDS: ALBUTEROL SULFATE 2.5 MG/0.5 ML INH NEB SOLN INH SCH ×4 (07:32→17:34)
[2021-05-11] MEDS: ENOXAPARIN 40MG/0.4ML SYRINGE (J1650 PER 10MG) SC SCH (08:05)
[2021-05-11] MEDS: ONDANSETRON 4MG/2ML VIAL IV PRN ×3 (08:05→23:18)
[2021-05-11] MEDS: SODIUM CHLORIDE 0.9% INJ 10 ML SYR IV SCH (08:07)
[2021-05-11 16:27] VITALS: BP 147/77
[2021-05-11 20:00] VITALS: BP 157/80
[2021-05-12] VITALS: BP 146/76
[2021-05-12] MEDS: KETOROLAC 30 MG/ML 1ML VIAL IV SCH ×5 (00:09→23:42)
[2021-05-12] MEDS: HumaLOG INSULIN (NovoLOG) PER UNIT SC SCH ×5 (00:16→23:43)
[2021-05-12] MEDS: HYDROMORPHONE HCL 0.5 MG/ 0.5 ML SYRINGE (J1170 PER 1) IV PRN ×4 (02:30→20:17)
[2021-05-12 04:00] VITALS: BP 156/78
[2021-05-12] MEDS: KCL 20MEQ IN 0.45NS 1000ML 1,000 ML IV SCH ×3 (05:07→22:01)
[2021-05-12 07:10] LABS: HEMATOCRIT 35.9 % (36.0-47.0); HEMOGLOBIN 11.6 g/dl (12.0-15.5); MEAN CORPUSCULAR HEMOGLOBIN 30.1 pg (27.0-33.0); MEAN CORPUSCULAR HGB CONC 32.3 g/dl (32.0-36.5); PLATELET COUNT, AUTOMATED 227 10^3/uL (150-450); RED BLOOD COUNT 3.86 10^6/uL (4.00-5.40); WHITE BLOOD COUNT 5.5 10^3/uL (4.0-10.0)
[2021-05-12 07:36] LABS: ALBUMIN 2.7 GM/DL (3.2-5.2); ALT/SGPT 33 U/L (12-78); BILIRUBIN,TOTAL 0.2 MG/DL (0.2-1.0); BLOOD UREA NITROGEN 4 MG/DL (7-18); CALCIUM LEVEL 8.7 MG/DL (8.8-10.2); CARBON DIOXIDE LEVEL 24 MEQ/L (21-32); CHLORIDE LEVEL 103 MEQ/L (98-107); CREATININE FOR GFR 0.43 MG/DL (0.55-1.30); GLOMERULAR FILTRATION RATE > 60.0 (>45); GLUCOSE, FASTING 191 MG/DL (70-100); POTASSIUM SERUM 4.1 MEQ/L (3.5-5.1); SODIUM LEVEL 136 MEQ/L (136-145); TOTAL PROTEIN 7.6 GM/DL (6.4-8.2)
[2021-05-12] MEDS: ALBUTEROL SULFATE 2.5 MG/0.5 ML INH NEB SOLN INH SCH ×4 (08:00→19:34)
[2021-05-12] MEDS: ENOXAPARIN 40MG/0.4ML SYRINGE (J1650 PER 10MG) SC SCH (08:24)
[2021-05-12] MEDS: ONDANSETRON 4MG/2ML VIAL IV PRN (08:24)
[2021-05-12] MEDS: SODIUM CHLORIDE 0.9% INJ 10 ML SYR IV SCH (08:29)
[2021-05-12] MEDS: CAPSAICIN 0.025% CR 60 GM TOP SCH ×3 (08:30→21:00)
[2021-05-12] MEDS: ERYTHROMYCIN OPHTH OINT OS SCH ×3 (12:52→20:16)
[2021-05-12] MEDS ORDERED: BUPIVACAINE LIPOSOME/PF 1.3% 20ML VIAL (13.3MG/ML)(EXPAREL)(C9290 PER1MG) XX ONE (13:45)
[2021-05-12 14:00] VITALS: BP 147/72
[2021-05-12] MEDS: fentaNYL 100 MCG/2 ML INJECTION (J3010) IV PRN ×3 (14:24→16:39)
[2021-05-12] MEDS: MIDAZOLAM INJ 2MG/2ML VIAL (J2250 PER 1MG) IV PRN ×2 (14:24→14:30)
[2021-05-12] MEDS ORDERED: LIDOCAINE 1% MDV 20ML VIAL As Ordered ONE (14:35)
[2021-05-12] MEDS ORDERED: LIDOCAINE 1% MDV 20ML VIAL XX ONE (15:05)
[2021-05-12 22:33] VITALS: BP 151/97
[2021-05-13] MEDS: HYDROMORPHONE HCL 0.5 MG/ 0.5 ML SYRINGE (J1170 PER 1) IV PRN ×6 (02:58→22:58)
[2021-05-13] MEDS: ONDANSETRON 4MG/2ML VIAL IV PRN ×2 (04:06→13:39)
[2021-05-13 05:39] LABS: HEMATOCRIT 36.8 % (36.0-47.0); HEMOGLOBIN 11.9 g/dl (12.0-15.5); MEAN CORPUSCULAR HEMOGLOBIN 30.1 pg (27.0-33.0); MEAN CORPUSCULAR HGB CONC 32.3 g/dl (32.0-36.5); MEAN CORPUSCULAR VOLUME 92.9 fl (80.0-96.0); PLATELET COUNT, AUTOMATED 253 10^3/uL (150-450); RED BLOOD COUNT 3.96 10^6/uL (4.00-5.40); WHITE BLOOD COUNT 7.1 10^3/uL (4.0-10.0)
[2021-05-13] MEDS: KETOROLAC 30 MG/ML 1ML VIAL IV SCH ×3 (05:40→17:34)
[2021-05-13] MEDS: HumaLOG INSULIN (NovoLOG) PER UNIT SC SCH ×4 (05:41→23:13)
[2021-05-13 06:07] LABS: ALBUMIN 2.9 GM/DL (3.2-5.2); ALT/SGPT 33 U/L (12-78); BILIRUBIN,TOTAL 0.3 MG/DL (0.2-1.0); BLOOD UREA NITROGEN 5 MG/DL (7-18); CARBON DIOXIDE LEVEL 20 MEQ/L (21-32); CHLORIDE LEVEL 103 MEQ/L (98-107); CREATININE FOR GFR 0.37 MG/DL (0.55-1.30); GLOMERULAR FILTRATION RATE > 60.0 (>45); GLUCOSE, FASTING 198 MG/DL (70-100); POTASSIUM SERUM 4.5 MEQ/L (3.5-5.1); SODIUM LEVEL 135 MEQ/L (136-145); TOTAL PROTEIN 7.6 GM/DL (6.4-8.2)
[2021-05-13] MEDS: KCL 20MEQ IN 0.45NS 1000ML 1,000 ML IV SCH (06:28)
[2021-05-13 06:29] VITALS: BP 157/81
[2021-05-13] MEDS: ALBUTEROL SULFATE 2.5 MG/0.5 ML INH NEB SOLN INH SCH ×3 (07:30→14:56)
[2021-05-13] MEDS: ENOXAPARIN 40MG/0.4ML SYRINGE (J1650 PER 10MG) SC SCH (09:58)
[2021-05-13] MEDS: CAPSAICIN 0.025% CR 60 GM TOP SCH ×2 (10:04→20:58)
[2021-05-13] MEDS: ERYTHROMYCIN OPHTH OINT OS SCH ×3 (10:04→20:57)
[2021-05-13] MEDS: SODIUM CHLORIDE 0.9% INJ 10 ML SYR IV SCH (10:42)
[2021-05-13 11:17] LABS: MAGNESIUM LEVEL 1.5 MG/DL (1.8-2.4)
[2021-05-13] MEDS ORDERED: ONDANSETRON 4 MG TAB PO PRN (13:20)
[2021-05-13 14:00] VITALS: BP 138/73
[2021-05-13] MEDS: SODIUM CHLORIDE 0.9% INJ 10 ML SYR IV PRN ×2 (15:05→17:35)
[2021-05-13 21:01] VITALS: BP 142/72
[2021-05-14] MEDS: HYDROMORPHONE HCL 0.5 MG/ 0.5 ML SYRINGE (J1170 PER 1) IV PRN ×5 (05:19→19:56)
[2021-05-14] MEDS: SODIUM CHLORIDE 0.9% INJ 10 ML SYR IV PRN (05:20)
[2021-05-14] MEDS: HumaLOG INSULIN (NovoLOG) PER UNIT SC SCH ×4 (05:29→23:55)
[2021-05-14] MEDS: KETOROLAC 30 MG/ML 1ML VIAL IV SCH ×5 (05:30→23:32)
[2021-05-14 05:44] LABS: HEMATOCRIT 35.1 % (36.0-47.0); HEMOGLOBIN 11.6 g/dl (12.0-15.5); MEAN CORPUSCULAR HEMOGLOBIN 30.4 pg (27.0-33.0); MEAN CORPUSCULAR VOLUME 91.9 fl (80.0-96.0); PLATELET COUNT, AUTOMATED 267 10^3/uL (150-450); RED BLOOD COUNT 3.82 10^6/uL (4.00-5.40); WHITE BLOOD COUNT 6.5 10^3/uL (4.0-10.0)
[2021-05-14 06:12] LABS: ALBUMIN 2.8 GM/DL (3.2-5.2); ALT/SGPT 26 U/L (12-78); BILIRUBIN,TOTAL 0.2 MG/DL (0.2-1.0); BLOOD UREA NITROGEN 6 MG/DL (7-18); CARBON DIOXIDE LEVEL 23 MEQ/L (21-32); CHLORIDE LEVEL 104 MEQ/L (98-107); GLOMERULAR FILTRATION RATE > 60.0 (>45); GLUCOSE, FASTING 236 MG/DL (70-100); MAGNESIUM LEVEL 1.5 MG/DL (1.8-2.4); POTASSIUM SERUM 3.8 MEQ/L (3.5-5.1); SODIUM LEVEL 136 MEQ/L (136-145); TOTAL PROTEIN 7.1 GM/DL (6.4-8.2)
[2021-05-14 06:37] VITALS: BP 133/71
[2021-05-14] MEDS: ALBUTEROL SULFATE 2.5 MG/0.5 ML INH NEB SOLN INH SCH ×4 (08:00→20:00)
[2021-05-14] MEDS: CAPSAICIN 0.025% CR 60 GM TOP SCH ×2 (09:00→20:00)
[2021-05-14] MEDS: ENOXAPARIN 40MG/0.4ML SYRINGE (J1650 PER 10MG) SC SCH (09:16)
[2021-05-14] MEDS: SODIUM CHLORIDE 0.9% INJ 10 ML SYR IV SCH (09:16)
[2021-05-14] MEDS: ERYTHROMYCIN OPHTH OINT OS SCH ×3 (09:17→19:59)
[2021-05-14] MEDS: ONDANSETRON 4MG/2ML VIAL IV PRN ×2 (10:39→19:55)
[2021-05-14 14:00] VITALS: BP 123/71
[2021-05-15] MEDS: HYDROMORPHONE HCL 0.5 MG/ 0.5 ML SYRINGE (J1170 PER 1) IV PRN ×3 (02:18→10:26)
[2021-05-15 06:00] VITALS: BP 130/65
[2021-05-15] MEDS: KETOROLAC 30 MG/ML 1ML VIAL IV SCH (06:02)
[2021-05-15 06:18] LABS: HEMATOCRIT 35.6 % (36.0-47.0); HEMOGLOBIN 11.5 g/dl (12.0-15.5); MEAN CORPUSCULAR HEMOGLOBIN 29.9 pg (27.0-33.0); MEAN CORPUSCULAR HGB CONC 32.3 g/dl (32.0-36.5); MEAN CORPUSCULAR VOLUME 92.5 fl (80.0-96.0); PLATELET COUNT, AUTOMATED 256 10^3/uL (150-450); RED BLOOD COUNT 3.85 10^6/uL (4.00-5.40); WHITE BLOOD COUNT 7.2 10^3/uL (4.0-10.0)
[2021-05-15 07:13] LABS: ALBUMIN 2.8 GM/DL (3.2-5.2); ALT/SGPT 25 U/L (12-78); BILIRUBIN,TOTAL < 0.1 MG/DL (0.2-1.0); BLOOD UREA NITROGEN 17 MG/DL (7-18); CARBON DIOXIDE LEVEL 25 MEQ/L (21-32); CHLORIDE LEVEL 106 MEQ/L (98-107); CREATININE FOR GFR 0.57 MG/DL (0.55-1.30); GLOMERULAR FILTRATION RATE > 60.0 (>45); GLUCOSE, FASTING 290 MG/DL (70-100); MAGNESIUM LEVEL 1.8 MG/DL (1.8-2.4); POTASSIUM SERUM 4.2 MEQ/L (3.5-5.1); SODIUM LEVEL 137 MEQ/L (136-145); TOTAL PROTEIN 6.9 GM/DL (6.4-8.2)
[2021-05-15 07:22] VITALS: BP 130/70
[2021-05-15] MEDS ORDERED: HumaLOG INSULIN (NovoLOG) PER UNIT SC SCH ×2 (07:30→21:00)
[2021-05-15] MEDS: ALBUTEROL SULFATE 2.5 MG/0.5 ML INH NEB SOLN INH SCH (08:00)
[2021-05-15] MEDS: ERYTHROMYCIN OPHTH OINT OS SCH (08:49)
[2021-05-15] MEDS: ENOXAPARIN 40MG/0.4ML SYRINGE (J1650 PER 10MG) SC SCH (08:51)
[2021-05-15] MEDS: SODIUM CHLORIDE 0.9% INJ 10 ML SYR IV SCH (08:51)
[2021-05-15] MEDS: CAPSAICIN 0.025% CR 60 GM TOP SCH (08:52)
== END 2021-05-15 12:08 | disposition home or self-care (01) | DRG 247 ==
LOC: M ED 03:24 → EDBD 03:24 → M ED INP 11:25 → ENRESERV 15:51 → M MSPAV 17:08 → OBSVTOIN 05-09 10:52
PROVIDERS: ADMIT Family Medicine; ATTEND Family Medicine
PROC: 3E0T3BZ Introduction of Anesthetic Agent into Peripheral Nerves and Plexi, Percutaneous Approach (ICD-10-PCS; principal; 2021-05-12 13:43)
DX: K56.600 Partial intestinal obstruction, unspecified as to cause (principal); G90.50 Complex regional pain syndrome I, unspecified; E11.9 Type 2 diabetes mellitus without complications; Z90.49 Acquired absence of other specified parts of digestive tract; K21.9 Gastro-esophageal reflux disease without esophagitis; Z90.79 Acquired absence of other genital organ(s); Z20.822 Contact with and (suspected) exposure to COVID-19; Z79.4 Long term (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; Z79.899 Other long term (current) drug therapy; Z88.0 Allergy status to penicillin; Z88.1 Allergy status to other antibiotic agents; Z88.2 Allergy status to sulfonamides; Z88.5 Allergy status to narcotic agent; Z88.6 Allergy status to analgesic agent; Z88.8 Allergy status to other drugs, medicaments and biological substances; Z91.040 Latex allergy status; Z91.041 Radiographic dye allergy status; M79.2 Neuralgia and neuritis, unspecified; Z93.2 Ileostomy status; H10.9 Unspecified conjunctivitis

== ENCOUNTER 2021-05-17 21:33 | Inpatient (IN) | payer OTHER ==
[~2021-05-17] VITALS: Ht 165.1 cm; Wt 71.0 kg
[~2021-05-17 21:33] MED LIST changes: +ONDA4INJ4 SC
[2021-05-17] MEDS ORDERED: ONDANSETRON 4MG/2ML VIAL IV ONE (22:15)
[2021-05-17] MEDS ORDERED: NS 1,000 ML IV ONE (22:15)
[2021-05-17] MEDS ORDERED: SODIUM CHLORIDE 0.9% INJ 10 ML SYR IV PRN (22:15)
[2021-05-17] MEDS: HYDROMORPHONE HCL 0.5 MG/ 0.5 ML SYRINGE (J1170 PER 1) IV PRN (22:44)
[2021-05-17 22:48] LABS: BASO % 0.3 % (0.0-1.0); EOS # 0.1 10^3/uL (0.0-0.5); EOS % 0.7 % (0.0-3.0); HEMATOCRIT 39.3 % (36.0-47.0); HEMOGLOBIN 12.7 g/dl (12.0-15.5); LYMPH # 0.8 10^3/uL (1.5-5.0); LYMPH % 10.9 % (24.0-44.0); MEAN CORPUSCULAR HEMOGLOBIN 29.9 pg (27.0-33.0); MEAN CORPUSCULAR HGB CONC 32.3 g/dl (32.0-36.5); MEAN CORPUSCULAR VOLUME 92.5 fl (80.0-96.0); MONO # 0.7 10^3/uL (0.0-0.8); MONO % 10.1 % (2.0-8.0); NEUTROPHILS # 5.4 10^3/uL (1.5-8.5); NEUTROPHILS % 77.7 % (36.0-66.0); PLATELET COUNT, AUTOMATED 286 10^3/uL (150-450); RED BLOOD COUNT 4.25 10^6/uL (4.00-5.40)
[2021-05-18 00:11] LABS: ALBUMIN 3.5 GM/DL (3.2-5.2); ALT/SGPT 31 U/L (12-78); BILIRUBIN,DIRECT < 0.1 MG/DL (0.0-0.2); BILIRUBIN,TOTAL 0.2 MG/DL (0.2-1.0); BLOOD UREA NITROGEN 19 MG/DL (7-18); CALCIUM LEVEL 11.1 MG/DL (8.8-10.2); CARBON DIOXIDE LEVEL 26 MEQ/L (21-32); CHLORIDE LEVEL 95 MEQ/L (98-107); CREATININE FOR GFR 0.85 MG/DL (0.55-1.30); GLOMERULAR FILTRATION RATE > 60.0 (>45); GLUCOSE, FASTING 253 MG/DL (70-100); LIPASE 80 U/L (73-393); POTASSIUM SERUM 4.5 MEQ/L (3.5-5.1); SODIUM LEVEL 133 MEQ/L (136-145); TOTAL PROTEIN 8.5 GM/DL (6.4-8.2)
[2021-05-18] MEDS ORDERED: DEXTROSE 50% 50 ML SYRINGE IV PRN (02:35)
[2021-05-18] MEDS ORDERED: GLUCOSE 4GM CHEW TABLET PO PRN (02:35)
[2021-05-18] MEDS ORDERED: MORPHINE 2 MG/ML 1ML VIAL (J2270) IV PRN (02:35)
[2021-05-18] MEDS ORDERED: GLUCAGON INJ 1MG VIAL SC PRN (02:35)
[2021-05-18] MEDS: HYDROMORPHONE HCL 0.5 MG/ 0.5 ML SYRINGE (J1170 PER 1) IV PRN ×6 (02:46→20:52)
[2021-05-18] MEDS ORDERED: NS 1,000 ML IV SCH (03:50)
[2021-05-18] MEDS ORDERED: DILA2TAB6 PO (04:07)
[2021-05-18] MEDS ORDERED: HOME MED LIST COMPLETE! XX SCH (04:10)
[2021-05-18] MEDS ORDERED: ALBUTEROL 90 MCG/ACT 8GM HFA INHALER INH PRN (06:00)
[2021-05-18 06:30] VITALS: BP 109/68
[2021-05-18] MEDS: HumaLOG INSULIN (NovoLOG) PER UNIT SC SCH ×3 (08:15→17:19)
[2021-05-18] MEDS: SIMETHICONE 80MG CHEW TAB PO SCH ×4 (08:15→20:48)
[2021-05-18] MEDS: METOCLOPRAMIDE 10 MG TAB PO SCH ×3 (08:15→17:17)
[2021-05-18] MEDS: ONDANSETRON 4MG/2ML VIAL IV SCH ×2 (09:32→20:49)
[2021-05-18] MEDS: LACTIC ACID 12% LOTION 225 GM BTL TOP SCH (09:33)
[2021-05-18] MEDS: DICYCLOMINE 10 MG CAP PO SCH ×4 (09:33→20:49)
[2021-05-18] MEDS: ENOXAPARIN 40MG/0.4ML SYRINGE (J1650 PER 10MG) SC SCH (09:33)
[2021-05-18] MEDS: LACTULOSE 20 GM/30 ML SYRUP UD PO SCH ×4 (09:33→20:47)
[2021-05-18] MEDS: VITAMIN D 1,000 INTERNATIONAL UNITS TABLET PO SCH (09:34)
[2021-05-18] MEDS: AMITRIPTYLINE 50 MG TAB PO SCH (09:34)
[2021-05-18] MEDS: OMEPRAZOLE 20MG CAP PO SCH (09:35)
[2021-05-18] MEDS: SUCRALFATE 1 GM TAB PO SCH ×2 (09:35→20:49)
[2021-05-18] MEDS: SODIUM CHLORIDE 0.9% INJ 10 ML SYR IV SCH (11:16)
[2021-05-18 13:14] LABS: TOTAL 25(OH) VITAMIN D 24.8 NG/ML (30.0-100.0)
[2021-05-18 14:00] VITALS: BP 116/64
[2021-05-18] MEDS ORDERED: LEVEMIR (INSULIN DETEMIR) 1 UNITS/0.01ML SC SCH (21:00)
[2021-05-18] MEDS ORDERED: HumaLOG INSULIN (NovoLOG) PER UNIT SC SCH (21:00)
[2021-05-18] MEDS ORDERED: SENOKOT S TAB PO SCH (21:00)
[2021-05-18] MEDS ORDERED: AMITRIPTYLINE 50 MG TAB PO SCH (21:00)
[2021-05-18 22:00] VITALS: BP 119/57
[2021-05-19] MEDS: HYDROMORPHONE HCL 0.5 MG/ 0.5 ML SYRINGE (J1170 PER 1) IV PRN ×3 (03:12→10:13)
[2021-05-19 06:00] VITALS: BP 108/56
[2021-05-19] MEDS: SODIUM CHLORIDE 0.9% INJ 10 ML SYR IV PRN ×3 (06:08→11:38)
[2021-05-19 07:49] LABS: ALBUMIN 2.9 GM/DL (3.2-5.2); BLOOD UREA NITROGEN 13 MG/DL (7-18); CALCIUM LEVEL 9.7 MG/DL (8.8-10.2); CARBON DIOXIDE LEVEL 29 MEQ/L (21-32); CHLORIDE LEVEL 100 MEQ/L (98-107); CREATININE FOR GFR 0.54 MG/DL (0.55-1.30); GLOMERULAR FILTRATION RATE > 60.0 (>45); GLUCOSE, FASTING 134 MG/DL (70-100); SODIUM LEVEL 136 MEQ/L (136-145)
[2021-05-19] MEDS: LACTULOSE 20 GM/30 ML SYRUP UD PO SCH (09:00)
[2021-05-19] MEDS: AMITRIPTYLINE 50 MG TAB PO SCH (10:08)
[2021-05-19] MEDS: DICYCLOMINE 10 MG CAP PO SCH (10:08)
[2021-05-19] MEDS: SUCRALFATE 1 GM TAB PO SCH (10:08)
[2021-05-19] MEDS: VITAMIN D 1,000 INTERNATIONAL UNITS TABLET PO SCH (10:08)
[2021-05-19] MEDS: OMEPRAZOLE 20MG CAP PO SCH (10:08)
[2021-05-19] MEDS: ONDANSETRON 4MG/2ML VIAL IV SCH (10:09)
[2021-05-19] MEDS: HumaLOG INSULIN (NovoLOG) PER UNIT SC SCH (10:09)
[2021-05-19 10:13] VITALS: BP 118/58
[2021-05-19] MEDS: ENOXAPARIN 40MG/0.4ML SYRINGE (J1650 PER 10MG) SC SCH (10:14)
[2021-05-19] MEDS: LACTIC ACID 12% LOTION 225 GM BTL TOP SCH (10:14)
[2021-05-19] MEDS: SODIUM CHLORIDE 0.9% INJ 10 ML SYR IV SCH (10:15)
[2021-05-19] MEDS: METOCLOPRAMIDE 10 MG TAB PO SCH (10:25)
[2021-05-19] MEDS: SIMETHICONE 80MG CHEW TAB PO SCH (10:25)
== END 2021-05-19 12:04 | disposition home or self-care (01) | DRG 48 ==
LOC: M ED 21:33 → M ED INP 05-18 03:51 → ENRESERV 05-18 04:30 → M MSPAV 05-18 06:20
PROVIDERS: ADMIT Family Medicine; ATTEND Family Medicine
DX: M79.2 Neuralgia and neuritis, unspecified (principal); E83.52 Hypercalcemia; Z93.2 Ileostomy status; Z86.718 Personal history of other venous thrombosis and embolism; E11.9 Type 2 diabetes mellitus without complications; G43.909 Migraine, unspecified, not intractable, without status migrainosus; J45.909 Unspecified asthma, uncomplicated; E78.5 Hyperlipidemia, unspecified; F32.A Depression, unspecified; M06.9 Rheumatoid arthritis, unspecified; Z90.49 Acquired absence of other specified parts of digestive tract; Z90.79 Acquired absence of other genital organ(s); Z20.822 Contact with and (suspected) exposure to COVID-19; Z79.4 Long term (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; Z79.899 Other long term (current) drug therapy; Z88.0 Allergy status to penicillin; Z88.1 Allergy status to other antibiotic agents; Z88.2 Allergy status to sulfonamides; Z88.5 Allergy status to narcotic agent; Z88.8 Allergy status to other drugs, medicaments and biological substances; Z91.041 Radiographic dye allergy status; Z91.040 Latex allergy status; Z91.018 Allergy to other foods

== ENCOUNTER → 2021-06-20 | Outpatient (CLI) | payer OTHER ==
[~2021-06-20] MED LIST changes: -D31000TA2 PO; -FEXO60CA PO; +FEXO60TA99 PO; +VITA100093 PO
== END ==
LOC: M PAIN 10:45
PROVIDERS: ATTEND Nurse Practitioner Family
DX: M79.10 Myalgia, unspecified site (principal); E11.40 Type 2 diabetes mellitus with diabetic neuropathy, unspecified; J45.909 Unspecified asthma, uncomplicated; Z88.0 Allergy status to penicillin; Z88.1 Allergy status to other antibiotic agents; Z88.2 Allergy status to sulfonamides; Z88.3 Allergy status to other anti-infective agents; Z88.4 Allergy status to anesthetic agent; Z88.5 Allergy status to narcotic agent; Z88.6 Allergy status to analgesic agent; Z88.8 Allergy status to other drugs, medicaments and biological substances; Z91.02 Food additives allergy status; Z91.040 Latex allergy status; Z91.041 Radiographic dye allergy status; Z79.4 Long term (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; Z79.899 Other long term (current) drug therapy

== ENCOUNTER → 2021-06-22 | Outpatient (REF) | payer OTHER | LOC: M SFHCPLAZ 16:41 | PROVIDERS: ATTEND Physician Assistant | DX: R09.81 Nasal congestion (principal) ==

== ENCOUNTER 2021-07-05 15:07 | Emergency (ER) | payer OTHER ==
[~2021-07-05] VITALS: Ht 165.1 cm; Wt 71.0 kg
[2021-07-05] MEDS ORDERED: MOME50SP2 (15:27)
[2021-07-05] MEDS ORDERED: OZEM2INJ (15:27)
[2021-07-05] MEDS ORDERED: HYDROMORPHONE HCL 0.5 MG/ 0.5 ML SYRINGE (J1170 PER 1) IV PRN (16:30)
[2021-07-05 17:55] LABS: BASO % 0.6 % (0.0-1.0); EOS # 0.1 10^3/uL (0.0-0.5); EOS % 1.2 % (0.0-3.0); HEMATOCRIT 36.7 % (36.0-47.0); LYMPH # 1.5 10^3/uL (1.5-5.0); LYMPH % 29.7 % (24.0-44.0); MEAN CORPUSCULAR HEMOGLOBIN 30.8 pg (27.0-33.0); MEAN CORPUSCULAR HGB CONC 32.7 g/dl (32.0-36.5); MEAN CORPUSCULAR VOLUME 94.1 fl (80.0-96.0); MONO # 0.5 10^3/uL (0.0-0.8); NEUTROPHILS % 58.3 % (36.0-66.0); PLATELET COUNT, AUTOMATED 195 10^3/uL (150-450); WHITE BLOOD COUNT 5.1 10^3/uL (4.0-10.0)
[2021-07-05 18:17] LABS: BLOOD UREA NITROGEN 10 MG/DL (7-18); CALCIUM LEVEL 9.9 MG/DL (8.8-10.2); CARBON DIOXIDE LEVEL 28 MEQ/L (21-32); CHLORIDE LEVEL 105 MEQ/L (98-107); GLOMERULAR FILTRATION RATE > 60.0 (>45); GLUCOSE, FASTING 104 MG/DL (70-100); POTASSIUM SERUM 3.8 MEQ/L (3.5-5.1); SODIUM LEVEL 138 MEQ/L (136-145)
[2021-07-05 18:46] VITALS: BP 127/72
[2021-07-05] MEDS ORDERED: DILA2TAB6 PO (18:51)
== END 2021-07-05 19:07 | disposition home or self-care (01) ==
LOC: M ED 15:07 → EDBD 15:07 → M ED 19:07
DX: R10.9 Unspecified abdominal pain (principal); E11.9 Type 2 diabetes mellitus without complications; E78.5 Hyperlipidemia, unspecified; J45.909 Unspecified asthma, uncomplicated; F32.9 Major depressive disorder, single episode, unspecified; Z87.442 Personal history of urinary calculi; Z79.4 Long term (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; Z79.899 Other long term (current) drug therapy; Z91.041 Radiographic dye allergy status; Z91.89 Other specified personal risk factors, not elsewhere classified; Z88.0 Allergy status to penicillin; Z91.018 Allergy to other foods; Z88.2 Allergy status to sulfonamides; Z88.1 Allergy status to other antibiotic agents; Z91.040 Latex allergy status; Z88.5 Allergy status to narcotic agent; Z88.8 Allergy status to other drugs, medicaments and biological substances
CPT/HCPCS: 36415; 74019; 80048; 85025; 96374; 99284; J1170

== ENCOUNTER 2021-07-09 11:46 | Emergency (ER) | payer OTHER ==
[~2021-07-09] VITALS: Ht 170.2 cm; Wt 74.5 kg
[~2021-07-09 11:46] MED LIST changes: +MOME50SP2; +OZEM2INJ
[2021-07-09] MEDS ORDERED: SODIUM CHLORIDE 0.9% INJ 10 ML SYR IV PRN (15:55)
[2021-07-09] MEDS ORDERED: HYDROMORPHONE HCL 0.5 MG/ 0.5 ML SYRINGE (J1170 PER 1) IV ONE (16:05)
[2021-07-09 16:31] LABS: BASO % 0.5 % (0.0-1.0); EOS % 0.5 % (0.0-3.0); HEMATOCRIT 36.9 % (36.0-47.0); HEMOGLOBIN 12.1 g/dl (12.0-15.5); LYMPH # 0.8 10^3/uL (1.5-5.0); LYMPH % 20.2 % (24.0-44.0); MEAN CORPUSCULAR HEMOGLOBIN 30.4 pg (27.0-33.0); MEAN CORPUSCULAR HGB CONC 32.8 g/dl (32.0-36.5); MEAN CORPUSCULAR VOLUME 92.7 fl (80.0-96.0); MONO # 0.5 10^3/uL (0.0-0.8); MONO % 13.3 % (2.0-8.0); NEUTROPHILS # 2.6 10^3/uL (1.5-8.5); NEUTROPHILS % 65.2 % (36.0-66.0); PLATELET COUNT, AUTOMATED 203 10^3/uL (150-450); RED BLOOD COUNT 3.98 10^6/uL (4.00-5.40); WHITE BLOOD COUNT 3.9 10^3/uL (4.0-10.0)
[2021-07-09 16:56] LABS: ERYTHROCYTE SEDIMENTATION RATE 81 mm/hr (0-30)
[2021-07-09 17:45] LABS: ALBUMIN 3.5 GM/DL (3.2-5.2); ALT/SGPT 52 U/L (12-78); BILIRUBIN,DIRECT < 0.1 MG/DL (0.0-0.2); BILIRUBIN,TOTAL 0.3 MG/DL (0.2-1.0); BLOOD UREA NITROGEN 5 MG/DL (7-18); CARBON DIOXIDE LEVEL 28 MEQ/L (21-32); CHLORIDE LEVEL 103 MEQ/L (98-107); GLOMERULAR FILTRATION RATE > 60.0 (>45); GLUCOSE, FASTING 96 MG/DL (70-100); LIPASE 51 U/L (73-393); POTASSIUM SERUM 3.7 MEQ/L (3.5-5.1); SODIUM LEVEL 136 MEQ/L (136-145); TOTAL PROTEIN 7.7 GM/DL (6.4-8.2)
[2021-07-09 18:50] VITALS: BP 160/78
[2021-07-10] MEDS ORDERED: SODIUM CHLORIDE 0.9% INJ 10 ML SYR IV SCH (09:00)
== END 2021-07-09 18:52 | disposition home or self-care (01) ==
LOC: M ED 11:46
DX: R14.0 Abdominal distension (gaseous) (principal); R10.32 Left lower quadrant pain; R16.0 Hepatomegaly, not elsewhere classified; K76.0 Fatty (change of) liver, not elsewhere classified; N28.1 Cyst of kidney, acquired; N20.0 Calculus of kidney; K57.10 Diverticulosis of small intestine without perforation or abscess without bleeding; Z93.2 Ileostomy status; Z90.49 Acquired absence of other specified parts of digestive tract; Z79.4 Long term (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; Z79.899 Other long term (current) drug therapy; Z91.041 Radiographic dye allergy status; Z91.018 Allergy to other foods; Z91.89 Other specified personal risk factors, not elsewhere classified; Z88.0 Allergy status to penicillin; Z88.2 Allergy status to sulfonamides; Z88.8 Allergy status to other drugs, medicaments and biological substances; Z88.1 Allergy status to other antibiotic agents; Z88.5 Allergy status to narcotic agent
CPT/HCPCS: 74176; 80048; 80076; 83690; 85025; 85652; 96374; 99284; J1170; J1642

== ENCOUNTER 2021-07-13 06:47 | Outpatient (CLI) | payer OTHER ==
[~2021-07-13] VITALS: Ht 170.2 cm; Wt 74.5 kg
[~2021-07-13 06:47] MED LIST changes: +SODIUM CHLORIDE 0.9% INJ 10 ML SYR IV SCH
[2021-07-13 06:55] VITALS: BP 124/66
[2021-07-13 08:29] LABS: HEMOGLOBIN A1c 7.7 %
[2021-07-13 09:13] LABS: BLOOD UREA NITROGEN 10 MG/DL (7-18); CALCIUM LEVEL 10.2 MG/DL (8.8-10.2); CARBON DIOXIDE LEVEL 28 MEQ/L (21-32); CHLORIDE LEVEL 104 MEQ/L (98-107); CREATININE FOR GFR 0.64 MG/DL (0.55-1.30); GLOMERULAR FILTRATION RATE > 60.0 (>45); GLUCOSE, FASTING 166 MG/DL (70-100); MAGNESIUM LEVEL 1.4 MG/DL (1.8-2.4); SODIUM LEVEL 137 MEQ/L (136-145)
== END 2021-07-13 07:20 | disposition home or self-care (01) ==
LOC: M INFU 06:47
PROVIDERS: ATTEND Family Medicine
DX: E11.65 Type 2 diabetes mellitus with hyperglycemia (principal); E83.42 Hypomagnesemia
CPT/HCPCS: 36591; 80048; 83036; 83735; 96523; J1642

== ENCOUNTER → 2021-07-16 | Outpatient (REF) | payer OTHER ==
[~2021-07-16] MED LIST changes: -SODIUM CHLORIDE 0.9% INJ 10 ML SYR IV SCH
== END ==
LOC: M SFHCPLAZ 10:07
PROVIDERS: ATTEND Physician Assistant
DX: R30.0 Dysuria (principal)

== ENCOUNTER 2021-07-28 03:11 | Emergency (ER) | payer OTHER ==
[~2021-07-28] VITALS: Ht 170.2 cm; Wt 77.3 kg
[~2021-07-28 03:11] MED LIST changes: +NS 1,000 ML IV ONE
[2021-07-28] MEDS ORDERED: ONDANSETRON 4MG/2ML VIAL IV ONE (03:30)
[2021-07-28] MEDS: HYDROMORPHONE HCL 0.5 MG/ 0.5 ML SYRINGE (J1170 PER 1) IV PRN ×2 (04:33→06:01)
[2021-07-28 04:36] LABS: BASO % 0.4 % (0.0-1.0); EOS % 0.6 % (0.0-3.0); HEMATOCRIT 31.7 % (36.0-47.0); HEMOGLOBIN 10.2 g/dl (12.0-15.5); LYMPH # 1.3 10^3/uL (1.5-5.0); LYMPH % 23.8 % (24.0-44.0); MEAN CORPUSCULAR HGB CONC 32.2 g/dl (32.0-36.5); MEAN CORPUSCULAR VOLUME 96.4 fl (80.0-96.0); MONO # 0.5 10^3/uL (0.0-0.8); MONO % 8.8 % (2.0-8.0); NEUTROPHILS # 3.6 10^3/uL (1.5-8.5); NEUTROPHILS % 66.2 % (36.0-66.0); PLATELET COUNT, AUTOMATED 162 10^3/uL (150-450); RED BLOOD COUNT 3.29 10^6/uL (4.00-5.40); WHITE BLOOD COUNT 5.4 10^3/uL (4.0-10.0)
[2021-07-28 06:37] LABS: ALT/SGPT 62 U/L (12-78); BILIRUBIN,DIRECT 0.1 MG/DL (0.0-0.2); BILIRUBIN,TOTAL 0.2 MG/DL (0.2-1.0); BLOOD UREA NITROGEN 10 MG/DL (7-18); CALCIUM LEVEL 9.4 MG/DL (8.8-10.2); CARBON DIOXIDE LEVEL 27 MEQ/L (21-32); CHLORIDE LEVEL 105 MEQ/L (98-107); GLOMERULAR FILTRATION RATE > 60.0 (>45); GLUCOSE, FASTING 137 MG/DL (70-100); LIPASE 66 U/L (73-393); POTASSIUM SERUM 3.8 MEQ/L (3.5-5.1); SODIUM LEVEL 139 MEQ/L (136-145); TOTAL PROTEIN 6.9 GM/DL (6.4-8.2)
[2021-07-28 07:24] VITALS: BP 133/72
== END 2021-07-28 07:57 | disposition home or self-care (01) ==
LOC: M ED 03:11 → EDBD 03:11 → M ED 07:57
DX: R10.9 Unspecified abdominal pain (principal); E11.9 Type 2 diabetes mellitus without complications; E78.5 Hyperlipidemia, unspecified; K21.9 Gastro-esophageal reflux disease without esophagitis; N18.9 Chronic kidney disease, unspecified; Z90.49 Acquired absence of other specified parts of digestive tract; Z94.89 Other transplanted organ and tissue status; R16.0 Hepatomegaly, not elsewhere classified; K76.0 Fatty (change of) liver, not elsewhere classified; Z79.4 Long term (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; Z79.899 Other long term (current) drug therapy; Z91.041 Radiographic dye allergy status; Z91.018 Allergy to other foods; Z91.89 Other specified personal risk factors, not elsewhere classified; Z88.0 Allergy status to penicillin; Z88.2 Allergy status to sulfonamides; Z88.8 Allergy status to other drugs, medicaments and biological substances; Z88.1 Allergy status to other antibiotic agents; Z88.5 Allergy status to narcotic agent; Z91.02 Food additives allergy status
CPT/HCPCS: 74176; 80048; 80076; 83605; 83690; 85025; 93041; 96361; 96374; 96375; 96376; 99284; J1170; J1642; J2405

== ENCOUNTER → 2021-07-30 | Outpatient (CLI) | payer OTHER ==
[~2021-07-30] MED LIST changes: -NS 1,000 ML IV ONE
== END ==
LOC: M PAIN 13:30
PROVIDERS: ATTEND Anesthesiology
DX: R10.9 Unspecified abdominal pain (principal); M79.2 Neuralgia and neuritis, unspecified; E11.40 Type 2 diabetes mellitus with diabetic neuropathy, unspecified; J45.909 Unspecified asthma, uncomplicated; Z86.14 Personal history of Methicillin resistant Staphylococcus aureus infection; Z88.0 Allergy status to penicillin; Z88.1 Allergy status to other antibiotic agents; Z88.2 Allergy status to sulfonamides; Z88.3 Allergy status to other anti-infective agents; Z88.5 Allergy status to narcotic agent; Z88.6 Allergy status to analgesic agent; Z88.8 Allergy status to other drugs, medicaments and biological substances; Z91.02 Food additives allergy status; Z91.040 Latex allergy status; Z91.041 Radiographic dye allergy status; Z96.89 Presence of other specified functional implants; Z79.4 Long term (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; Z79.899 Other long term (current) drug therapy

== ENCOUNTER 2021-08-03 06:46 | Outpatient (CLI) | payer OTHER ==
[~2021-08-03] VITALS: Ht 170.2 cm; Wt 77.3 kg
[2021-08-03 06:55] VITALS: BP 115/72
[2021-08-03] MEDS ORDERED: SODIUM CHLORIDE 0.9% INJ 10 ML SYR IV PRN (07:00)
[2021-08-03] MEDS: MAG SULF 1GM/100ML (MAG RUN) X 2 DOSES (2GM TOTAL) IV SCH ×4 (07:30→08:40)
[2021-08-03] MEDS ORDERED: SODIUM CHLORIDE 0.9% INJ 10 ML SYR IV SCH (09:00)
[2021-08-03 09:45] VITALS: BP 105/69
== END 2021-08-03 09:45 | disposition home or self-care (01) ==
LOC: M INFU 06:46
PROVIDERS: ATTEND Family Medicine
DX: E83.42 Hypomagnesemia (principal); N18.9 Chronic kidney disease, unspecified; D63.8 Anemia in other chronic diseases classified elsewhere; K76.0 Fatty (change of) liver, not elsewhere classified
CPT/HCPCS: 96365; 96366; J1642; J3475

== ENCOUNTER 2021-08-13 13:25 | Outpatient (CLI) | payer OTHER ==
[~2021-08-13 13:25] MED LIST changes: +SODIUM CHLORIDE 0.9% INJ 10 ML SYR IV SCH
[2021-08-13 13:30] VITALS: BP 134/66
[2021-08-13 14:15] LABS: HEMATOCRIT 37.6 % (36.0-47.0); HEMOGLOBIN 12.2 g/dl (12.0-15.5); MEAN CORPUSCULAR HEMOGLOBIN 31.5 pg (27.0-33.0); MEAN CORPUSCULAR HGB CONC 32.4 g/dl (32.0-36.5); MEAN CORPUSCULAR VOLUME 97.2 fl (80.0-96.0); PLATELET COUNT, AUTOMATED 185 10^3/uL (150-450); RED BLOOD COUNT 3.87 10^6/uL (4.00-5.40); WHITE BLOOD COUNT 6.1 10^3/uL (4.0-10.0)
[2021-08-13 14:37] LABS: ALBUMIN 3.4 GM/DL (3.2-5.2); ALT/SGPT 53 U/L (12-78); BILIRUBIN,TOTAL 0.1 MG/DL (0.2-1.0); BLOOD UREA NITROGEN 7 MG/DL (7-18); CALCIUM LEVEL 9.4 MG/DL (8.8-10.2); CARBON DIOXIDE LEVEL 25 MEQ/L (21-32); CHLORIDE LEVEL 106 MEQ/L (98-107); CREATININE FOR GFR 0.75 MG/DL (0.55-1.30); GLOMERULAR FILTRATION RATE > 60.0 (>45); GLUCOSE, FASTING 214 MG/DL (70-100); MAGNESIUM LEVEL 1.8 MG/DL (1.8-2.4); POTASSIUM SERUM 4.2 MEQ/L (3.5-5.1); SODIUM LEVEL 137 MEQ/L (136-145)
== END 2021-08-13 14:15 | disposition home or self-care (01) ==
LOC: EDBD → M INFU 13:25
PROVIDERS: ATTEND Family Medicine
DX: E83.42 Hypomagnesemia (principal); D63.8 Anemia in other chronic diseases classified elsewhere; N18.9 Chronic kidney disease, unspecified; E11.65 Type 2 diabetes mellitus with hyperglycemia
CPT/HCPCS: 36591; 80053; 83735; 85027; 96523; J1642

== ENCOUNTER 2021-08-18 13:03 | Inpatient (IN) | payer OTHER ==
[~2021-08-18] VITALS: Ht 170.2 cm; Wt 79.5 kg
[~2021-08-18 13:03] MED LIST changes: -MOME50SP2; -SODIUM CHLORIDE 0.9% INJ 10 ML SYR IV SCH
[2021-08-18] MEDS ORDERED: ONDANSETRON 4MG/2ML VIAL IV ONE (13:35)
[2021-08-18] MEDS ORDERED: HYDROMORPHONE HCL 0.5 MG/ 0.5 ML SYRINGE (J1170 PER 1) IV ONE ×2 (13:40→15:35)
[2021-08-18 14:17] LABS: BASO % 0.7 % (0.0-1.0); EOS # 0.1 10^3/uL (0.0-0.5); EOS % 1.4 % (0.0-3.0); HEMATOCRIT 38.5 % (36.0-47.0); HEMOGLOBIN 12.9 g/dl (12.0-15.5); LYMPH # 1.8 10^3/uL (1.5-5.0); LYMPH % 30.4 % (24.0-44.0); MEAN CORPUSCULAR HEMOGLOBIN 31.7 pg (27.0-33.0); MEAN CORPUSCULAR HGB CONC 33.5 g/dl (32.0-36.5); MEAN CORPUSCULAR VOLUME 94.6 fl (80.0-96.0); MONO # 0.6 10^3/uL (0.0-0.8); NEUTROPHILS # 3.3 10^3/uL (1.5-8.5); NEUTROPHILS % 57.2 % (36.0-66.0); PLATELET COUNT, AUTOMATED 207 10^3/uL (150-450); RED BLOOD COUNT 4.07 10^6/uL (4.00-5.40); WHITE BLOOD COUNT 5.8 10^3/uL (4.0-10.0)
[2021-08-18 15:04] LABS: ALBUMIN 3.6 GM/DL (3.2-5.2); ALT/SGPT 59 U/L (12-78); BILIRUBIN,DIRECT 0.1 MG/DL (0.0-0.2); BILIRUBIN,TOTAL 0.1 MG/DL (0.2-1.0); BLOOD UREA NITROGEN 11 MG/DL (7-18); CALCIUM LEVEL 10.8 MG/DL (8.8-10.2); CARBON DIOXIDE LEVEL 24 MEQ/L (21-32); CHLORIDE LEVEL 97 MEQ/L (98-107); GLOMERULAR FILTRATION RATE > 60.0 (>45); GLUCOSE, FASTING 233 MG/DL (70-100); LIPASE 169 U/L (73-393); POTASSIUM SERUM 4.3 MEQ/L (3.5-5.1); SODIUM LEVEL 130 MEQ/L (136-145); TOTAL PROTEIN 8.2 GM/DL (6.4-8.2)
[2021-08-18 15:56] LABS: RSV AMPLIFICATION NEGATIVE (NEGATIVE)
[2021-08-18] MEDS ORDERED: HYDROmorphone HCL 2MG/ML 1ML VIAL IV PRN (16:25)
[2021-08-18] MEDS: NS 1,000 ML IV SCH (17:05)
[2021-08-18] MEDS: KETOROLAC 30 MG/ML 1ML VIAL IV SCH ×2 (17:05→22:58)
[2021-08-18] MEDS ORDERED: HOME MED LIST COMPLETE! XX SCH (17:35)
[2021-08-18 18:00] VITALS: BP 116/58
[2021-08-18] MEDS: PANTOPRAZOLE 40MG VIAL IV SCH (20:02)
[2021-08-18] MEDS: ONDANSETRON 4MG/2ML VIAL IV SCH (20:03)
[2021-08-18] MEDS: HYDROMORPHONE HCL 0.5 MG/ 0.5 ML SYRINGE (J1170 PER 1) IV PRN (20:04)
[2021-08-19] VITALS: BP 112/56
[2021-08-19] MEDS: ONDANSETRON 4MG/2ML VIAL IV SCH ×4 (02:06→21:02)
[2021-08-19] MEDS: HYDROMORPHONE HCL 0.5 MG/ 0.5 ML SYRINGE (J1170 PER 1) IV PRN ×3 (02:07→21:03)
[2021-08-19] MEDS: NS 1,000 ML IV SCH ×2 (02:12→11:53)
[2021-08-19 04:00] VITALS: BP 101/58
[2021-08-19] MEDS: KETOROLAC 30 MG/ML 1ML VIAL IV SCH ×4 (04:50→23:16)
[2021-08-19 04:53] LABS: BASO % 0.6 % (0.0-1.0); EOS # 0.1 10^3/uL (0.0-0.5); EOS % 1.3 % (0.0-3.0); HEMOGLOBIN 12.1 g/dl (12.0-15.5); LYMPH # 1.5 10^3/uL (1.5-5.0); LYMPH % 27.8 % (24.0-44.0); MEAN CORPUSCULAR HEMOGLOBIN 30.9 pg (27.0-33.0); MEAN CORPUSCULAR HGB CONC 32.7 g/dl (32.0-36.5); MEAN CORPUSCULAR VOLUME 94.6 fl (80.0-96.0); MONO # 0.5 10^3/uL (0.0-0.8); MONO % 9.7 % (2.0-8.0); NEUTROPHILS # 3.2 10^3/uL (1.5-8.5); NEUTROPHILS % 60.4 % (36.0-66.0); PLATELET COUNT, AUTOMATED 203 10^3/uL (150-450); RED BLOOD COUNT 3.91 10^6/uL (4.00-5.40); WHITE BLOOD COUNT 5.3 10^3/uL (4.0-10.0)
[2021-08-19 05:11] LABS: BLOOD UREA NITROGEN 12 MG/DL (7-18); CALCIUM LEVEL 9.7 MG/DL (8.8-10.2); CARBON DIOXIDE LEVEL 24 MEQ/L (21-32); CHLORIDE LEVEL 104 MEQ/L (98-107); CREATININE FOR GFR 0.58 MG/DL (0.55-1.30); GLOMERULAR FILTRATION RATE > 60.0 (>45); GLUCOSE, FASTING 152 MG/DL (70-100); POTASSIUM SERUM 4.3 MEQ/L (3.5-5.1); SODIUM LEVEL 134 MEQ/L (136-145)
[2021-08-19 08:00] VITALS: BP 111/56
[2021-08-19] MEDS: PANTOPRAZOLE 40MG VIAL IV SCH ×2 (08:10→21:02)
[2021-08-19] MEDS: SODIUM CHLORIDE 0.9% INJ 10 ML SYR IV SCH (09:36)
[2021-08-19] MEDS: SUCRALFATE 1 GM TAB PO SCH ×2 (09:36→21:02)
[2021-08-19] MEDS: SIMETHICONE 80MG CHEW TAB PO SCH ×3 (11:29→21:01)
[2021-08-19 12:00] VITALS: BP 113/55
[2021-08-19 16:00] VITALS: BP 35/63
[2021-08-19] MEDS ORDERED: ALBUTEROL 90 MCG/ACT 8GM HFA INHALER INH PRN (19:15)
[2021-08-19 20:00] VITALS: BP 139/63
[2021-08-19] MEDS ORDERED: SODIUM CHLORIDE NASAL 0.65% SPRAY BTL (OCEAN) PRN (20:30)
[2021-08-19] MEDS ORDERED: SENOKOT S TAB PO SCH (21:00)
[2021-08-19] MEDS ORDERED: AMITRIPTYLINE 50 MG TAB PO SCH (21:00)
[2021-08-19] MEDS ORDERED: SODIUM CHLORIDE 0.9% NASAL GEL 15GM (AYR) PRN (21:05)
[2021-08-19] MEDS ORDERED: diphenhydrAMINE 25MG CAP PO PRN (21:05)
[2021-08-20] VITALS: BP 121/63
[2021-08-20] MEDS ORDERED: FAMOTIDINE 20 MG TAB PO ONE
[2021-08-20] MEDS ORDERED: diphenhydrAMINE 25MG CAP PO ONE
[2021-08-20] MEDS: ONDANSETRON 4MG/2ML VIAL IV SCH ×2 (02:00→08:00)
[2021-08-20 04:00] VITALS: BP 113/56
[2021-08-20] MEDS: KETOROLAC 30 MG/ML 1ML VIAL IV SCH (04:08)
[2021-08-20] MEDS: HYDROMORPHONE HCL 0.5 MG/ 0.5 ML SYRINGE (J1170 PER 1) IV PRN ×2 (05:18→09:24)
[2021-08-20 07:37] LABS: BASO % 0.8 % (0.0-1.0); EOS # 0.2 10^3/uL (0.0-0.5); EOS % 3.8 % (0.0-3.0); HEMOGLOBIN 12.4 g/dl (12.0-15.5); LYMPH # 1.2 10^3/uL (1.5-5.0); LYMPH % 31.1 % (24.0-44.0); MEAN CORPUSCULAR HEMOGLOBIN 31.7 pg (27.0-33.0); MEAN CORPUSCULAR HGB CONC 32.6 g/dl (32.0-36.5); MEAN CORPUSCULAR VOLUME 97.2 fl (80.0-96.0); MONO # 0.4 10^3/uL (0.0-0.8); MONO % 9.6 % (2.0-8.0); NEUTROPHILS # 2.2 10^3/uL (1.5-8.5); NEUTROPHILS % 54.4 % (36.0-66.0); PLATELET COUNT, AUTOMATED 177 10^3/uL (150-450); RED BLOOD COUNT 3.91 10^6/uL (4.00-5.40)
[2021-08-20 07:39] VITALS: BP 130/59
[2021-08-20 08:02] LABS: BLOOD UREA NITROGEN 9 MG/DL (7-18); CALCIUM LEVEL 9.6 MG/DL (8.8-10.2); CARBON DIOXIDE LEVEL 24 MEQ/L (21-32); CHLORIDE LEVEL 109 MEQ/L (98-107); CREATININE FOR GFR 0.61 MG/DL (0.55-1.30); GLOMERULAR FILTRATION RATE > 60.0 (>45); GLUCOSE, FASTING 209 MG/DL (70-100); POTASSIUM SERUM 4.5 MEQ/L (3.5-5.1); SODIUM LEVEL 138 MEQ/L (136-145)
[2021-08-20] MEDS: PANTOPRAZOLE 40MG VIAL IV SCH (09:00)
[2021-08-20] MEDS ORDERED: AMITRIPTYLINE 50 MG TAB PO SCH (09:00)
[2021-08-20] MEDS: SIMETHICONE 80MG CHEW TAB PO SCH (09:10)
[2021-08-20] MEDS: SODIUM CHLORIDE 0.9% INJ 10 ML SYR IV SCH (09:10)
[2021-08-20] MEDS: SUCRALFATE 1 GM TAB PO SCH (09:10)
[2021-08-20] MEDS ORDERED: FAMO20TA PO (13:15)
== END 2021-08-20 11:21 | disposition home or self-care (01) | DRG 48 ==
LOC: M ED 13:03 → M ED INP 16:23 → ENRESERV 17:00 → M PCU 17:41
PROVIDERS: ADMIT Internal Medicine Nephrology; ATTEND Internal Medicine Nephrology
DX: E11.42 Type 2 diabetes mellitus with diabetic polyneuropathy (principal); R11.10 Vomiting, unspecified; Z93.2 Ileostomy status; G90.50 Complex regional pain syndrome I, unspecified; Z79.891 Long term (current) use of opiate analgesic; Z79.4 Long term (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; Z79.899 Other long term (current) drug therapy; Z88.0 Allergy status to penicillin; Z88.1 Allergy status to other antibiotic agents; Z88.2 Allergy status to sulfonamides; Z91.041 Radiographic dye allergy status; Z91.040 Latex allergy status; Z88.5 Allergy status to narcotic agent; Z88.8 Allergy status to other drugs, medicaments and biological substances; Z91.018 Allergy to other foods; J45.901 Unspecified asthma with (acute) exacerbation; K21.9 Gastro-esophageal reflux disease without esophagitis; E78.5 Hyperlipidemia, unspecified; Z90.710 Acquired absence of both cervix and uterus; Z90.49 Acquired absence of other specified parts of digestive tract; Z20.822 Contact with and (suspected) exposure to COVID-19; M79.2 Neuralgia and neuritis, unspecified

== ENCOUNTER 2021-09-05 16:56 | Emergency (ER) | payer OTHER ==
[~2021-09-05] VITALS: Ht 170.2 cm; Wt 77.3 kg
[~2021-09-05 16:56] MED LIST changes: +FAMO20TA PO
[2021-09-05 22:48] VITALS: BP 173/79
[2021-09-06 01:05] LABS: BASO % 0.5 % (0.0-1.0); EOS # 0.1 10^3/uL (0.0-0.5); EOS % 1.2 % (0.0-3.0); HEMATOCRIT 39.4 % (36.0-47.0); LYMPH # 1.7 10^3/uL (1.5-5.0); LYMPH % 29.2 % (24.0-44.0); MEAN CORPUSCULAR HEMOGLOBIN 31.6 pg (27.0-33.0); MEAN CORPUSCULAR VOLUME 95.6 fl (80.0-96.0); MONO # 0.4 10^3/uL (0.0-0.8); MONO % 7.6 % (2.0-8.0); NEUTROPHILS # 3.5 10^3/uL (1.5-8.5); NEUTROPHILS % 60.8 % (36.0-66.0); PLATELET COUNT, AUTOMATED 218 10^3/uL (150-450); RED BLOOD COUNT 4.12 10^6/uL (4.00-5.40); WHITE BLOOD COUNT 5.8 10^3/uL (4.0-10.0)
[2021-09-06 01:30] LABS: ALBUMIN 3.4 GM/DL (3.2-5.2); ALT/SGPT 40 U/L (12-78); BILIRUBIN,DIRECT < 0.1 MG/DL (0.0-0.2); BILIRUBIN,TOTAL 0.2 MG/DL (0.2-1.0); LIPASE 160 U/L (73-393); TOTAL PROTEIN 8.3 GM/DL (6.4-8.2)
== END 2021-09-06 02:35 | disposition home or self-care (01) ==
LOC: M ED 16:56
DX: R10.9 Unspecified abdominal pain (principal); R19.7 Diarrhea, unspecified; E11.9 Type 2 diabetes mellitus without complications; Z79.4 Long term (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; Z79.899 Other long term (current) drug therapy; Z91.041 Radiographic dye allergy status; Z91.018 Allergy to other foods; Z91.89 Other specified personal risk factors, not elsewhere classified; Z88.0 Allergy status to penicillin; Z88.2 Allergy status to sulfonamides; Z88.8 Allergy status to other drugs, medicaments and biological substances; Z88.1 Allergy status to other antibiotic agents; Z88.5 Allergy status to narcotic agent

== ENCOUNTER 2021-09-12 13:27 | Outpatient (CLI) | payer OTHER ==
[~2021-09-12] VITALS: Ht 165.1 cm; Wt 54.5 kg
[~2021-09-12 13:27] MED LIST changes: +ALBU2.5V10 INH; -ALBU83IN INH; +SODIUM CHLORIDE 0.9% INJ 10 ML SYR IV SCH
[2021-09-12 14:20] VITALS: BP 137/67
== END 2021-09-12 14:20 | disposition home or self-care (01) ==
LOC: EDBD → M INFU 13:27
PROVIDERS: ATTEND Family Medicine
DX: E83.42 Hypomagnesemia (principal); E11.65 Type 2 diabetes mellitus with hyperglycemia; Z88.0 Allergy status to penicillin; Z88.1 Allergy status to other antibiotic agents; Z88.2 Allergy status to sulfonamides; Z88.5 Allergy status to narcotic agent; Z88.8 Allergy status to other drugs, medicaments and biological substances; Z91.89 Other specified personal risk factors, not elsewhere classified; Z91.018 Allergy to other foods; Z91.040 Latex allergy status; Z91.041 Radiographic dye allergy status
CPT/HCPCS: 96523; J1642

== ENCOUNTER → 2021-09-27 | Outpatient (CLI) | payer OTHER ==
[~2021-09-27] MED LIST changes: -SODIUM CHLORIDE 0.9% INJ 10 ML SYR IV SCH
== END ==
LOC: M PAIN 14:00
PROVIDERS: ATTEND Anesthesiology
DX: R10.9 Unspecified abdominal pain (principal); M79.2 Neuralgia and neuritis, unspecified; E11.40 Type 2 diabetes mellitus with diabetic neuropathy, unspecified; J45.909 Unspecified asthma, uncomplicated; Z86.73 Personal history of transient ischemic attack (TIA), and cerebral infarction without residual deficits; Z96.89 Presence of other specified functional implants; Z88.0 Allergy status to penicillin; Z88.1 Allergy status to other antibiotic agents; Z88.2 Allergy status to sulfonamides; Z88.3 Allergy status to other anti-infective agents; Z88.5 Allergy status to narcotic agent; Z88.6 Allergy status to analgesic agent; Z88.8 Allergy status to other drugs, medicaments and biological substances; Z91.02 Food additives allergy status; Z91.040 Latex allergy status; Z91.041 Radiographic dye allergy status; Z79.4 Long term (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; Z79.899 Other long term (current) drug therapy

== ENCOUNTER → 2021-10-01 | Outpatient (CLI) | payer OTHER | LOC: M WHC 12:49 | PROVIDERS: ATTEND Family Medicine | DX: N61.0 Mastitis without abscess (principal); R92.8 Other abnormal and inconclusive findings on diagnostic imaging of breast ==

== ENCOUNTER → 2021-10-01 | Outpatient (CLI) | payer OTHER ==
[2021-10-01 16:21] LABS: HEMATOCRIT 41.8 % (36.0-47.0); HEMOGLOBIN 13.4 g/dl (12.0-15.5); MEAN CORPUSCULAR HEMOGLOBIN 31.3 pg (27.0-33.0); MEAN CORPUSCULAR HGB CONC 32.1 g/dl (32.0-36.5); MEAN CORPUSCULAR VOLUME 97.7 fl (80.0-96.0); PLATELET COUNT, AUTOMATED 266 10^3/uL (150-450); RED BLOOD COUNT 4.28 10^6/uL (4.00-5.40); WHITE BLOOD COUNT 6.4 10^3/uL (4.0-10.0)
[2021-10-01 16:39] LABS: ALBUMIN 3.8 GM/DL (3.2-5.2); ALT/SGPT 48 U/L (12-78); BILIRUBIN,TOTAL 0.2 MG/DL (0.2-1.0); BLOOD UREA NITROGEN 8 MG/DL (7-18); C REACTIVE PROTEIN QUANTITATIV 0.71 MG/DL (0.00-0.30); CALCIUM LEVEL 10.8 MG/DL (8.8-10.2); CARBON DIOXIDE LEVEL 27 MEQ/L (21-32); CHLORIDE LEVEL 103 MEQ/L (98-107); CREATININE FOR GFR 0.65 MG/DL (0.55-1.30); GLOMERULAR FILTRATION RATE > 60.0 (>45); GLUCOSE, FASTING 218 MG/DL (70-100); POTASSIUM SERUM 4.3 MEQ/L (3.5-5.1); SODIUM LEVEL 136 MEQ/L (136-145); TOTAL PROTEIN 8.9 GM/DL (6.4-8.2)
[2021-10-01 16:43] LABS: PROLACTIN 21.7 NG/ML
[2021-10-01 18:09] LABS: HEMOGLOBIN A1c 9.1 %
[2021-10-01 18:52] LABS: ERYTHROCYTE SEDIMENTATION RATE 73 mm/hr (0-30)
== END ==
LOC: M PLALAB 13:35
PROVIDERS: ATTEND Family Medicine
DX: E11.22 Type 2 diabetes mellitus with diabetic chronic kidney disease (principal); N18.31 Chronic kidney disease, stage 3a; N61.0 Mastitis without abscess

== ENCOUNTER 2021-10-12 13:40 | Outpatient (CLI) | payer OTHER ==
[~2021-10-12] VITALS: Ht 165.1 cm; Wt 54.5 kg
[2021-10-12 13:40] VITALS: BP 135/79
[~2021-10-12 13:40] MED LIST changes: +SODIUM CHLORIDE 0.9% INJ 10 ML SYR IV SCH
[2021-10-12 14:52] LABS: BLOOD UREA NITROGEN 7 MG/DL (7-18); CALCIUM LEVEL 10.7 MG/DL (8.8-10.2); CARBON DIOXIDE LEVEL 25 MEQ/L (21-32); CHLORIDE LEVEL 105 MEQ/L (98-107); CREATININE FOR GFR 0.53 MG/DL (0.55-1.30); GLOMERULAR FILTRATION RATE > 60.0 (>45); GLUCOSE, FASTING 178 MG/DL (70-100); MAGNESIUM LEVEL 1.6 MG/DL (1.8-2.4); POTASSIUM SERUM 4.1 MEQ/L (3.5-5.1); SODIUM LEVEL 138 MEQ/L (136-145)
== END 2021-10-12 14:30 | disposition home or self-care (01) ==
LOC: EDBD → M INFU 13:40
PROVIDERS: ATTEND Family Medicine
DX: E83.42 Hypomagnesemia (principal); K91.2 Postsurgical malabsorption, not elsewhere classified; E11.65 Type 2 diabetes mellitus with hyperglycemia; D63.8 Anemia in other chronic diseases classified elsewhere; Z88.0 Allergy status to penicillin; Z88.2 Allergy status to sulfonamides; Z88.1 Allergy status to other antibiotic agents; Z88.8 Allergy status to other drugs, medicaments and biological substances; Z88.5 Allergy status to narcotic agent; Z91.89 Other specified personal risk factors, not elsewhere classified; Z91.041 Radiographic dye allergy status; Z91.040 Latex allergy status; Z91.018 Allergy to other foods; Z91.02 Food additives allergy status
CPT/HCPCS: 36591; 80048; 83735; 96523; J1642

== ENCOUNTER → 2021-10-23 | Outpatient (CLI) | payer OTHER ==
[~2021-10-23] MED LIST changes: +**SFHN** LIDOCAINE 1% MDV 20ML VIAL ONE; +**SFHN** SODIUM BICARBONATE 8.4% 10MEQ 10ML VIAL ONE; -SODIUM CHLORIDE 0.9% INJ 10 ML SYR IV SCH
[2021-10-23 10:50] VITALS: BP 112/64
== END ==
LOC: M WHCPRO 09:18
PROVIDERS: ATTEND Family Medicine
DX: N60.02 Solitary cyst of left breast (principal)

== ENCOUNTER → 2021-10-24 | Outpatient (CLI) | payer OTHER ==
[~2021-10-24] MED LIST changes: -**SFHN** LIDOCAINE 1% MDV 20ML VIAL ONE; -**SFHN** SODIUM BICARBONATE 8.4% 10MEQ 10ML VIAL ONE
== END ==
LOC: M LABSMTC 09:23
PROVIDERS: ATTEND Anesthesiology
DX: Z01.812 Encounter for preprocedural laboratory examination (principal); Z11.52 Encounter for screening for COVID-19

== ENCOUNTER 2021-10-29 09:57 | Day surgery (SDC) | payer OTHER ==
[~2021-10-29] VITALS: Ht 170.2 cm; Wt 75.3 kg
[2021-10-29] MEDS ORDERED: LR 1,000 ML IV SCH (10:55)
[2021-10-29] MEDS ORDERED: MIDAZOLAM INJ 2MG/2ML VIAL (J2250 PER 1MG) As Ordered ONE (14:48)
[2021-10-29] MEDS ORDERED: fentaNYL 100 MCG/2 ML INJECTION As Ordered ONE (14:48)
[2021-10-29] MEDS ORDERED: propofoL 200 MG/20 ML VIAL As Ordered ONE (14:48)
[2021-10-29] MEDS ORDERED: LIDOCAINE 2% 100MG/5ML SDV (FOR ANES.) As Ordered ONE (14:48)
[2021-10-29] MEDS ORDERED: dexameTHASONE 4 MG/ML 1ML VIAL (J1100 PER 1MG) As Ordered ONE (14:49)
[2021-10-29] MEDS ORDERED: ONDANSETRON 4MG 2ML VIAL As Ordered ONE (14:49)
[2021-10-29] MEDS ORDERED: ROCURONIUM BROMIDE 50 MG/5 ML VIAL As Ordered ONE (14:49)
[2021-10-29] MEDS ORDERED: BACITRACIN OINTMENT 30GM TUBE As Ordered ONE (15:58)
[2021-10-29] MEDS ORDERED: LIDOCAINE W/EPINEPHRINE 1% 20ML VIAL As Ordered ONE (15:59)
[2021-10-29] MEDS ORDERED: LACRILUBE (AKWA TEARS) OPHTH OINT 3.5 GM As Ordered ONE (16:23)
[2021-10-29] MEDS ORDERED: SUGAMMADEX SODIUM 500 MG/5 ML VIAL (BRIDION) As Ordered ONE (16:27)
[2021-10-29] MEDS ORDERED: SODIUM CHLORIDE 0.9% INJ 10 ML SYR IV ONE (17:30)
[2021-10-29 17:50] VITALS: BP 138/74
== END 2021-10-29 18:17 | disposition home or self-care (01) ==
LOC: M SDC 09:57
PROVIDERS: ATTEND Otolaryngology
DX: D18.01 Hemangioma of skin and subcutaneous tissue (principal); R04.0 Epistaxis; E11.9 Type 2 diabetes mellitus without complications; K21.9 Gastro-esophageal reflux disease without esophagitis; Z86.73 Personal history of transient ischemic attack (TIA), and cerebral infarction without residual deficits; Z79.82 Long term (current) use of aspirin; Z79.899 Other long term (current) drug therapy; Z91.041 Radiographic dye allergy status; Z88.0 Allergy status to penicillin; Z88.5 Allergy status to narcotic agent; Z88.8 Allergy status to other drugs, medicaments and biological substances; Z91.018 Allergy to other foods
CPT/HCPCS: 11441; 88307; J1100; J2250; J2405; J3010

== ENCOUNTER 2021-11-12 07:00 | Outpatient (CLI) | payer OTHER ==
[~2021-11-12] VITALS: Ht 170.2 cm; Wt 77.2 kg
[2021-11-12 07:20] VITALS: BP 126/73
[2021-11-12] MEDS ORDERED: SODIUM CHLORIDE 0.9% INJ 10 ML SYR IV PRN (07:30)
[2021-11-12] MEDS ORDERED: SODIUM CHLORIDE 0.9% INJ 10 ML SYR IV SCH (09:00)
== END 2021-11-12 07:25 | disposition home or self-care (01) ==
LOC: M INFU 07:00
PROVIDERS: ATTEND Family Medicine
DX: E83.42 Hypomagnesemia (principal); K91.2 Postsurgical malabsorption, not elsewhere classified; E11.65 Type 2 diabetes mellitus with hyperglycemia; D63.8 Anemia in other chronic diseases classified elsewhere; Z88.0 Allergy status to penicillin; Z88.2 Allergy status to sulfonamides; Z88.1 Allergy status to other antibiotic agents; Z88.8 Allergy status to other drugs, medicaments and biological substances; Z88.5 Allergy status to narcotic agent
CPT/HCPCS: 96523; J1642

== ENCOUNTER 2021-11-12 09:05 | Emergency (ER) | payer OTHER ==
[~2021-11-12 09:05] MED LIST changes: +SIMV-253 PO
[2021-11-12] MEDS ORDERED: HYDROmorphone 2 MG TAB PO ONE (09:55)
[2021-11-12] MEDS ORDERED: BOOSTRIX/ADACEL VACCINE (DIPHTH/PERTUSS/ACELL/TETANUS) 0.5ML SYR IM.IMMUN ONE (10:45)
[2021-11-12 11:10] VITALS: BP 120/66
== END 2021-11-12 11:10 | disposition home or self-care (01) ==
LOC: M ED 09:05 → EDBD 09:05 → M ED 11:10
DX: S80.211A Abrasion, right knee, initial encounter (principal); S80.01XA Contusion of right knee, initial encounter; S40.012A Contusion of left shoulder, initial encounter; W18.30XA Fall on same level, unspecified, initial encounter; Y92.099 Unspecified place in other non-institutional residence as the place of occurrence of the external cause; E11.9 Type 2 diabetes mellitus without complications; J45.909 Unspecified asthma, uncomplicated; Z79.4 Long term (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; Z79.899 Other long term (current) drug therapy; Z91.041 Radiographic dye allergy status; Z91.018 Allergy to other foods; Z91.89 Other specified personal risk factors, not elsewhere classified; Z88.0 Allergy status to penicillin; Z88.2 Allergy status to sulfonamides; Z91.040 Latex allergy status; Z88.1 Allergy status to other antibiotic agents; Z88.5 Allergy status to narcotic agent; Z88.8 Allergy status to other drugs, medicaments and biological substances

== ENCOUNTER 2021-11-20 20:43 | Emergency (ER) | payer OTHER ==
[~2021-11-20] VITALS: Ht 170.2 cm; Wt 77.3 kg
[2021-11-20] MEDS ORDERED: OXYMETAZOLINE 0.05% NASAL SPRAY (AFRIN) ONE (23:35)
[2021-11-20 23:43] VITALS: BP 143/72
== END 2021-11-21 00:21 | disposition home or self-care (01) ==
LOC: M ED 20:43
DX: R04.0 Epistaxis (principal); Z79.4 Long term (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; Z79.899 Other long term (current) drug therapy; Z91.041 Radiographic dye allergy status; Z91.89 Other specified personal risk factors, not elsewhere classified; Z91.018 Allergy to other foods; Z88.0 Allergy status to penicillin; Z88.2 Allergy status to sulfonamides; Z88.8 Allergy status to other drugs, medicaments and biological substances; Z91.040 Latex allergy status; Z88.1 Allergy status to other antibiotic agents; Z88.5 Allergy status to narcotic agent

== ENCOUNTER 2021-12-13 06:50 | Outpatient (CLI) | payer OTHER ==
[~2021-12-13] VITALS: Ht 170.2 cm; Wt 77.2 kg
[2021-12-13] MEDS ORDERED: SODIUM CHLORIDE 0.9% INJ 10 ML SYR IV PRN (07:00)
[2021-12-13 07:10] VITALS: BP 112/63
[2021-12-13] MEDS ORDERED: SODIUM CHLORIDE 0.9% INJ 10 ML SYR IV SCH ×2 (09:00)
== END 2021-12-13 07:15 | disposition home or self-care (01) ==
LOC: M INFU 06:50
PROVIDERS: ATTEND Family Medicine
DX: E83.42 Hypomagnesemia (principal); K91.2 Postsurgical malabsorption, not elsewhere classified; E11.65 Type 2 diabetes mellitus with hyperglycemia; D63.8 Anemia in other chronic diseases classified elsewhere; Z88.0 Allergy status to penicillin; Z88.2 Allergy status to sulfonamides; Z88.8 Allergy status to other drugs, medicaments and biological substances; Z88.1 Allergy status to other antibiotic agents
CPT/HCPCS: 96523; J1642

== ENCOUNTER 2021-12-21 19:00 | Emergency (ER) | payer OTHER ==
[~2021-12-21] VITALS: Ht 170.2 cm; Wt 73.1 kg
[2021-12-21] MEDS ORDERED: HYDROMORPHONE HCL 0.5 MG/ 0.5 ML SYRINGE (J1170 PER 1) IV ONE (21:05)
[2021-12-21 21:21] LABS: BASO % 0.5 % (0.0-1.0); EOS # 0.1 10^3/uL (0.0-0.5); EOS % 0.8 % (0.0-3.0); HEMATOCRIT 38.7 % (36.0-47.0); HEMOGLOBIN 12.5 g/dl (12.0-15.5); LYMPH # 1.6 10^3/uL (1.5-5.0); LYMPH % 24.7 % (24.0-44.0); MEAN CORPUSCULAR HEMOGLOBIN 31.8 pg (27.0-33.0); MEAN CORPUSCULAR HGB CONC 32.3 g/dl (32.0-36.5); MEAN CORPUSCULAR VOLUME 98.5 fl (80.0-96.0); MONO # 0.6 10^3/uL (0.0-0.8); MONO % 8.8 % (2.0-8.0); NEUTROPHILS # 4.3 10^3/uL (1.5-8.5); NEUTROPHILS % 64.9 % (36.0-66.0); PLATELET COUNT, AUTOMATED 203 10^3/uL (150-450); RED BLOOD COUNT 3.93 10^6/uL (4.00-5.40); WHITE BLOOD COUNT 6.6 10^3/uL (4.0-10.0)
[2021-12-21 21:32] LABS: ALBUMIN 3.5 GM/DL (3.2-5.2); ALT/SGPT 42 U/L (12-78); BILIRUBIN,TOTAL 0.3 MG/DL (0.2-1.0); BLOOD UREA NITROGEN 19 MG/DL (7-18); CALCIUM LEVEL 10.5 MG/DL (8.8-10.2); CARBON DIOXIDE LEVEL 28 MEQ/L (21-32); CHLORIDE LEVEL 102 MEQ/L (98-107); CREATININE FOR GFR 0.78 MG/DL (0.55-1.30); GLOMERULAR FILTRATION RATE > 60.0 (>45); GLUCOSE, FASTING 254 MG/DL (70-100); MAGNESIUM LEVEL 1.7 MG/DL (1.8-2.4); POTASSIUM SERUM 4.5 MEQ/L (3.5-5.1); SODIUM LEVEL 136 MEQ/L (136-145); TOTAL PROTEIN 7.8 GM/DL (6.4-8.2)
[2021-12-21] MEDS ORDERED: NS 1,000 ML IV ONE (23:00)
[2021-12-21] MEDS ORDERED: MAG SULF 1GM/100ML (MAG RUN) 1 GM in IV 1 EA IV ONE (23:50)
[2021-12-22 01:30] VITALS: BP 107/61
== END 2021-12-22 01:54 | disposition home or self-care (01) ==
LOC: M ED 19:00
DX: R14.0 Abdominal distension (gaseous) (principal); K92.1 Melena; E11.9 Type 2 diabetes mellitus without complications; J45.909 Unspecified asthma, uncomplicated; E78.5 Hyperlipidemia, unspecified; K21.9 Gastro-esophageal reflux disease without esophagitis; G89.28 Other chronic postprocedural pain; Z90.49 Acquired absence of other specified parts of digestive tract; Z90.710 Acquired absence of both cervix and uterus; Z88.1 Allergy status to other antibiotic agents; Z88.6 Allergy status to analgesic agent; Z88.5 Allergy status to narcotic agent; Z88.0 Allergy status to penicillin; Z88.2 Allergy status to sulfonamides; Z88.8 Allergy status to other drugs, medicaments and biological substances; Z91.041 Radiographic dye allergy status; Z79.51 Long term (current) use of inhaled steroids; Z79.899 Other long term (current) drug therapy; Z79.4 Long term (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
CPT/HCPCS: 74176; 80053; 83605; 83735; 85025; 96365; 96375; 99284; J1170; J3475

== ENCOUNTER 2021-12-27 13:58 | Emergency (ER) | payer OTHER ==
[~2021-12-27] VITALS: Ht 170.2 cm; Wt 75.0 kg
[2021-12-27] MEDS ORDERED: SODIUM CHLORIDE 0.9% INJ 10 ML SYR IV PRN (16:50)
[2021-12-27] MEDS ORDERED: ONDANSETRON 4MG 2ML VIAL IV ONE (16:50)
[2021-12-27] MEDS: HYDROMORPHONE HCL 0.5 MG/ 0.5 ML SYRINGE (J1170 PER 1) IV PRN ×2 (17:54→17:55)
[2021-12-27 18:05] LABS: BASO % 0.5 % (0.0-1.0); EOS # 0.1 10^3/uL (0.0-0.5); EOS % 0.9 % (0.0-3.0); HEMATOCRIT 38.8 % (36.0-47.0); HEMOGLOBIN 12.4 g/dl (12.0-15.5); LYMPH # 1.6 10^3/uL (1.5-5.0); MEAN CORPUSCULAR HEMOGLOBIN 31.2 pg (27.0-33.0); MEAN CORPUSCULAR VOLUME 97.7 fl (80.0-96.0); MONO # 0.5 10^3/uL (0.0-0.8); MONO % 8.1 % (2.0-8.0); NEUTROPHILS # 4.2 10^3/uL (1.5-8.5); NEUTROPHILS % 65.2 % (36.0-66.0); PLATELET COUNT, AUTOMATED 186 10^3/uL (150-450); RED BLOOD COUNT 3.97 10^6/uL (4.00-5.40); WHITE BLOOD COUNT 6.4 10^3/uL (4.0-10.0)
[2021-12-27 18:41] LABS: ALBUMIN 3.6 GM/DL (3.2-5.2); ALT/SGPT 38 U/L (12-78); BILIRUBIN,TOTAL 0.3 MG/DL (0.2-1.0); BLOOD UREA NITROGEN 16 MG/DL (7-18); CALCIUM LEVEL 10.7 MG/DL (8.8-10.2); CARBON DIOXIDE LEVEL 28 MEQ/L (21-32); CHLORIDE LEVEL 102 MEQ/L (98-107); CREATININE FOR GFR 0.49 MG/DL (0.55-1.30); GLOMERULAR FILTRATION RATE > 60.0 (>45); GLUCOSE, FASTING 101 MG/DL (70-100); LIPASE 98 U/L (73-393); POTASSIUM SERUM 3.8 MEQ/L (3.5-5.1); SODIUM LEVEL 134 MEQ/L (136-145); TOTAL PROTEIN 8.3 GM/DL (6.4-8.2)
[2021-12-27] MEDS ORDERED: HYDROMORPHONE HCL 0.5 MG/ 0.5 ML SYRINGE (J1170 PER 1) IV ONE (20:25)
[2021-12-27 21:03] VITALS: BP 114/63
== END 2021-12-27 21:14 | disposition home or self-care (01) ==
LOC: M ED 13:58
DX: R10.84 Generalized abdominal pain (principal); R11.2 Nausea with vomiting, unspecified; E11.9 Type 2 diabetes mellitus without complications; Z91.041 Radiographic dye allergy status; Z91.018 Allergy to other foods; Z91.89 Other specified personal risk factors, not elsewhere classified; Z88.0 Allergy status to penicillin; Z88.2 Allergy status to sulfonamides; Z88.1 Allergy status to other antibiotic agents; Z88.8 Allergy status to other drugs, medicaments and biological substances; Z88.5 Allergy status to narcotic agent
CPT/HCPCS: 74176; 80053; 83605; 83690; 85025; 87635; 96374; 96375; 96376; 99284; J1170; J1642; J2405

== ENCOUNTER → 2022-01-06 | Outpatient (CLI) | payer OTHER | LOC: M LABSMTC 11:48 | PROVIDERS: ATTEND Anesthesiology | DX: Z01.812 Encounter for preprocedural laboratory examination (principal); Z20.822 Contact with and (suspected) exposure to COVID-19 ==

== ENCOUNTER 2022-01-09 10:25 | Emergency (ER) | payer OTHER ==
[2022-01-09 11:01] VITALS: BP 117/59
== END 2022-01-09 14:25 | disposition home or self-care (01) ==
LOC: M ED 10:25 → EDBD 10:25 → M ED 14:25
DX: R61 Generalized hyperhidrosis (principal); R73.09 Other abnormal glucose; E11.9 Type 2 diabetes mellitus without complications; R42 Dizziness and giddiness; Z90.49 Acquired absence of other specified parts of digestive tract; Z79.899 Other long term (current) drug therapy; Z91.040 Latex allergy status; Z91.018 Allergy to other foods; Z91.89 Other specified personal risk factors, not elsewhere classified; Z88.0 Allergy status to penicillin; Z88.2 Allergy status to sulfonamides; Z88.8 Allergy status to other drugs, medicaments and biological substances; Z88.1 Allergy status to other antibiotic agents; Z91.041 Radiographic dye allergy status; Z88.5 Allergy status to narcotic agent

== ENCOUNTER → 2022-01-10 | Outpatient (CLI) | payer OTHER ==
[~2022-01-10] MED LIST changes: +BUPIVACAINE HCL 0.25% 10ML VIAL As Ordered ONE; +BUPIVACAINE HCL 0.25% 30ML VIAL As Ordered ONE; +TRIAMCINOLONE ACETONIDE SUSP 40 MG/ML VIAL (J3301) As Ordered ONE
== END ==
LOC: M PAIN 10:00
PROVIDERS: ATTEND Anesthesiology
DX: M79.18 Myalgia, other site (principal); G89.29 Other chronic pain; E11.40 Type 2 diabetes mellitus with diabetic neuropathy, unspecified; J45.909 Unspecified asthma, uncomplicated; Z96.89 Presence of other specified functional implants; Z86.73 Personal history of transient ischemic attack (TIA), and cerebral infarction without residual deficits; Z88.0 Allergy status to penicillin; Z88.1 Allergy status to other antibiotic agents; Z88.2 Allergy status to sulfonamides; Z88.3 Allergy status to other anti-infective agents; Z88.4 Allergy status to anesthetic agent; Z88.5 Allergy status to narcotic agent; Z88.6 Allergy status to analgesic agent; Z88.8 Allergy status to other drugs, medicaments and biological substances; Z91.02 Food additives allergy status; Z91.040 Latex allergy status; Z91.041 Radiographic dye allergy status; Z79.4 Long term (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; Z79.891 Long term (current) use of opiate analgesic; Z79.899 Other long term (current) drug therapy
CPT/HCPCS: 20553; J3301

== ENCOUNTER → 2022-02-06 | Outpatient (CLI) | payer OTHER ==
[~2022-02-06] MED LIST changes: -BUPIVACAINE HCL 0.25% 10ML VIAL As Ordered ONE; -BUPIVACAINE HCL 0.25% 30ML VIAL As Ordered ONE; -TRIAMCINOLONE ACETONIDE SUSP 40 MG/ML VIAL (J3301) As Ordered ONE
== END ==
LOC: M PAIN 11:00
PROVIDERS: ATTEND Anesthesiology
DX: R10.9 Unspecified abdominal pain (principal); G89.29 Other chronic pain; M79.2 Neuralgia and neuritis, unspecified; E11.40 Type 2 diabetes mellitus with diabetic neuropathy, unspecified; J45.909 Unspecified asthma, uncomplicated; Z96.89 Presence of other specified functional implants; Z86.73 Personal history of transient ischemic attack (TIA), and cerebral infarction without residual deficits; Z88.0 Allergy status to penicillin; Z88.1 Allergy status to other antibiotic agents; Z88.2 Allergy status to sulfonamides; Z88.3 Allergy status to other anti-infective agents; Z88.4 Allergy status to anesthetic agent; Z88.5 Allergy status to narcotic agent; Z88.6 Allergy status to analgesic agent; Z88.8 Allergy status to other drugs, medicaments and biological substances; Z91.02 Food additives allergy status; Z91.040 Latex allergy status; Z91.041 Radiographic dye allergy status; Z79.4 Long term (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; Z79.891 Long term (current) use of opiate analgesic; Z79.899 Other long term (current) drug therapy

== ENCOUNTER → 2022-02-07 | Outpatient (CLI) | payer OTHER | LOC: M PLAIMG 09:10 | PROVIDERS: ATTEND Surgery | DX: R10.84 Generalized abdominal pain (principal) ==

== ENCOUNTER 2022-02-12 07:30 | Outpatient (CLI) | payer OTHER ==
[~2022-02-12] VITALS: Ht 170.2 cm; Wt 73.2 kg
[2022-02-12 07:30] VITALS: BP 112/72
[~2022-02-12 07:30] MED LIST changes: +SODIUM CHLORIDE 0.9% INJ 10 ML SYR IV PRN
[2022-02-12] MEDS ORDERED: SODIUM CHLORIDE 0.9% INJ 10 ML SYR IV SCH (09:00)
== END 2022-02-12 07:40 | disposition home or self-care (01) ==
LOC: M INFU 07:30
PROVIDERS: ATTEND Family Medicine
DX: E83.42 Hypomagnesemia (principal); K91.2 Postsurgical malabsorption, not elsewhere classified; E11.65 Type 2 diabetes mellitus with hyperglycemia; D63.8 Anemia in other chronic diseases classified elsewhere
CPT/HCPCS: 96523; J1642

== ENCOUNTER → 2022-02-22 | Outpatient (REF) | payer OTHER ==
[~2022-02-22] MED LIST changes: -SODIUM CHLORIDE 0.9% INJ 10 ML SYR IV PRN
== END ==
LOC: M SFHCPLAZ 16:47
PROVIDERS: ATTEND Family Medicine
DX: R30.0 Dysuria (principal)

== ENCOUNTER → 2022-02-25 | Outpatient (REF) | payer OTHER ==
[2022-02-25 19:38] LABS: APPEARANCE, URINE MANUAL HAZY (CLEAR); COLOR, URINE MANUAL YELLOW (YELLOW)
[2022-02-25 19:39] LABS: PROTEIN, URINE MANUAL NEGATIVE (NEGATIVE)
[2022-02-25 19:40] LABS: BILIRUBIN, URINE MANUAL NEGATIVE (NEGATIVE); BLOOD URINE MANUAL NEGATIVE (NEGATIVE); GLUCOSE, URINE (UA) MANUAL 3+(500 MG/DL) mg/dL (NEGATIVE); KETONE, URINE MANUAL NEGATIVE (NEGATIVE); LEUKOCYTE ESTERASE, URINE MAN POSITIVE (NEGATIVE); NITRITE, URINE MANUAL NEGATIVE (NEGATIVE); UROBILINOGEN, URINE MANUAL NORMAL (NORMAL)
[2022-02-25 20:10] LABS: AMORPHOUS SEDIMENT, URINE LARGE AMOUNT (NEGATIVE); BACTERIA, URINE NONE SEEN; CALCIUM OXALATE CRYSTALS,URINE MOD AMOUNT /hpf; HYALINE CAST, URINE NONE SEEN /lpf (0-1); RBC, URINE 0-1 /hpf (0-3); SQUAMOUS EPITHELIAL CELL URINE SMALL AMOUNT /hpf (SMALL AMT)
== END ==
LOC: M SFHCLERA 17:47
PROVIDERS: ATTEND Physician Assistant
DX: R39.9 Unspecified symptoms and signs involving the genitourinary system (principal)

== ENCOUNTER 2022-03-15 07:00 | Outpatient (CLI) | payer OTHER ==
[~2022-03-15] VITALS: Ht 170.2 cm; Wt 77.2 kg
[2022-03-15 07:00] VITALS: BP 118/76
[2022-03-15] MEDS ORDERED: SODIUM CHLORIDE 0.9% INJ 10 ML SYR IV SCH (09:00)
== END 2022-03-15 07:30 | disposition home or self-care (01) ==
LOC: M INFU 07:00
PROVIDERS: ATTEND Family Medicine
DX: E83.42 Hypomagnesemia (principal); K91.2 Postsurgical malabsorption, not elsewhere classified; D63.8 Anemia in other chronic diseases classified elsewhere; E11.65 Type 2 diabetes mellitus with hyperglycemia
CPT/HCPCS: 96523; J1642

== ENCOUNTER → 2022-03-15 | Outpatient (CLI) | payer OTHER | LOC: M PAIN 09:30 | PROVIDERS: ATTEND Anesthesiology | DX: R10.9 Unspecified abdominal pain (principal); M79.2 Neuralgia and neuritis, unspecified; E11.40 Type 2 diabetes mellitus with diabetic neuropathy, unspecified; J45.909 Unspecified asthma, uncomplicated; Z96.89 Presence of other specified functional implants; Z88.0 Allergy status to penicillin; Z88.1 Allergy status to other antibiotic agents; Z88.2 Allergy status to sulfonamides; Z88.3 Allergy status to other anti-infective agents; Z88.4 Allergy status to anesthetic agent; Z88.5 Allergy status to narcotic agent; Z88.6 Allergy status to analgesic agent; Z88.8 Allergy status to other drugs, medicaments and biological substances; Z91.040 Latex allergy status; Z91.041 Radiographic dye allergy status; Z79.4 Long term (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; Z79.891 Long term (current) use of opiate analgesic; Z79.899 Other long term (current) drug therapy ==

== ENCOUNTER 2022-04-12 07:00 | Outpatient (CLI) | payer OTHER ==
[~2022-04-12] VITALS: Ht 167.6 cm; Wt 72.7 kg
[2022-04-12 07:00] VITALS: BP 129/80
[~2022-04-12 07:00] MED LIST changes: +SODIUM CHLORIDE 0.9% INJ 10 ML SYR IV PRN
[2022-04-12 08:25] LABS: MAGNESIUM LEVEL 1.5 MG/DL (1.8-2.4)
[2022-04-12 08:36] LABS: BLOOD UREA NITROGEN 13 MG/DL (9-23); CALCIUM LEVEL 9.4 MG/DL (8.3-10.6); CARBON DIOXIDE LEVEL 27 MMOL/L (20-31); CHLORIDE LEVEL 100 MMOL/L (98-107); CREATININE FOR GFR 0.46 MG/DL (0.55-1.30); GLOMERULAR FILTRATION RATE > 60.0 (>45); GLUCOSE, FASTING 348 MG/DL (74-106); POTASSIUM SERUM 4.3 MMOL/L (3.5-5.1); SODIUM LEVEL 136 MMOL/L (136-145)
[2022-04-12] MEDS ORDERED: SODIUM CHLORIDE 0.9% INJ 10 ML SYR IV SCH (09:00)
== END 2022-04-12 18:46 ==
LOC: M INFU 07:00
PROVIDERS: ATTEND Family Medicine
DX: E11.65 Type 2 diabetes mellitus with hyperglycemia (principal); E83.42 Hypomagnesemia; Z88.3 Allergy status to other anti-infective agents; Z88.0 Allergy status to penicillin; Z88.2 Allergy status to sulfonamides; Z88.8 Allergy status to other drugs, medicaments and biological substances; Z88.1 Allergy status to other antibiotic agents; Z88.5 Allergy status to narcotic agent
CPT/HCPCS: 36591; 80048; 83036; 83735; 96523; J1642

== ENCOUNTER 2022-04-12 09:27 | Emergency (ER) | payer OTHER ==
[~2022-04-12] VITALS: Ht 170.2 cm; Wt 78.6 kg
[~2022-04-12 09:27] MED LIST changes: -SODIUM CHLORIDE 0.9% INJ 10 ML SYR IV PRN
[2022-04-12] MEDS ORDERED: ONDANSETRON 4MG 2ML VIAL IV ONE (16:15)
[2022-04-12] MEDS ORDERED: SODIUM CHLORIDE 0.9% INJ 10 ML SYR IV PRN (16:15)
[2022-04-12] MEDS ORDERED: NS 1,000 ML IV ONE (16:15)
[2022-04-12] MEDS ORDERED: HYDROmorphone 2 MG TAB PO ONE (16:20)
[2022-04-12] MEDS ORDERED: PILL CUTTER 1 EACH XX ONE (17:09)
[2022-04-12 17:23] LABS: BASO % 0.3 % (0.0-1.0); EOS # 0.1 10^3/uL (0.0-0.5); EOS % 1.2 % (0.0-3.0); HEMATOCRIT 38.8 % (36.0-47.0); HEMOGLOBIN 12.4 g/dl (12.0-15.5); LYMPH # 1.5 10^3/uL (1.5-5.0); MEAN CORPUSCULAR HEMOGLOBIN 31.5 pg (27.0-33.0); MEAN CORPUSCULAR VOLUME 98.5 fl (80.0-96.0); MONO # 0.5 10^3/uL (0.0-0.8); MONO % 8.2 % (2.0-8.0); NEUTROPHILS # 3.7 10^3/uL (1.5-8.5); PLATELET COUNT, AUTOMATED 182 10^3/uL (150-450); RED BLOOD COUNT 3.94 10^6/uL (4.00-5.40); WHITE BLOOD COUNT 5.9 10^3/uL (4.0-10.0)
[2022-04-12 17:32] LABS: ERYTHROCYTE SEDIMENTATION RATE 95 mm/hr (0-30)
[2022-04-12 17:39] LABS: LIPASE 24 U/L (12-53)
[2022-04-12 17:40] LABS: C REACTIVE PROTEIN QUANTITATIV < 0.40 MG/DL (<1.0)
[2022-04-12 17:42] LABS: ALBUMIN 3.3 G/DL (3.2-5.2); ALKALINE PHOSPHATASE 92 U/L (46-116); ALT/SGPT 33 U/L (7.0-40); AST/SGOT 36 U/L (<34); BILIRUBIN,DIRECT 0.1 MG/DL (<0.4); BILIRUBIN,TOTAL 0.3 MG/DL (0.3-1.2); TOTAL PROTEIN 7.1 G/DL (5.7-8.2)
[2022-04-12 18:49] VITALS: BP 137/70
== END 2022-04-12 19:05 | disposition home or self-care (01) ==
LOC: M ED 09:27
DX: R93.2 Abnormal findings on diagnostic imaging of liver and biliary tract (principal); K56.7 Ileus, unspecified; E86.0 Dehydration; K56.600 Partial intestinal obstruction, unspecified as to cause; N20.0 Calculus of kidney; R74.02 Elevation of levels of lactic acid dehydrogenase [LDH]; E83.42 Hypomagnesemia; E11.9 Type 2 diabetes mellitus without complications; J32.9 Chronic sinusitis, unspecified; J45.909 Unspecified asthma, uncomplicated; Z86.718 Personal history of other venous thrombosis and embolism; Z79.4 Long term (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; Z79.899 Other long term (current) drug therapy; Z91.041 Radiographic dye allergy status; Z88.2 Allergy status to sulfonamides; Z88.0 Allergy status to penicillin; Z88.8 Allergy status to other drugs, medicaments and biological substances; Z91.040 Latex allergy status; Z88.1 Allergy status to other antibiotic agents; Z88.5 Allergy status to narcotic agent; Z91.018 Allergy to other foods; Z88.3 Allergy status to other anti-infective agents; Z91.02 Food additives allergy status
CPT/HCPCS: 74176; 80047; 80076; 83605; 83690; 83735; 85025; 85652; 86140; 87040; 96361; 96374; 99283; J1642; J2405

== ENCOUNTER 2022-04-14 11:51 | Emergency (ER) | payer OTHER ==
[~2022-04-14] VITALS: Ht 170.2 cm; Wt 59.1 kg
[2022-04-14] MEDS ORDERED: NS 1,000 ML IV ONE (12:20)
[2022-04-14] MEDS ORDERED: ONDANSETRON 4MG 2ML VIAL IV ONE (12:20)
[2022-04-14] MEDS ORDERED: HYDROmorphone 2 MG TAB PO ONE (12:20)
[2022-04-14 12:48] LABS: BASO % 0.5 % (0.0-1.0); EOS # 0.1 10^3/uL (0.0-0.5); EOS % 1.3 % (0.0-3.0); HEMATOCRIT 39.4 % (36.0-47.0); HEMOGLOBIN 12.5 g/dl (12.0-15.5); LYMPH # 1.5 10^3/uL (1.5-5.0); LYMPH % 24.5 % (24.0-44.0); MEAN CORPUSCULAR HEMOGLOBIN 31.4 pg (27.0-33.0); MEAN CORPUSCULAR HGB CONC 31.7 g/dl (32.0-36.5); MONO # 0.4 10^3/uL (0.0-0.8); MONO % 7.2 % (2.0-8.0); NEUTROPHILS % 66.3 % (36.0-66.0); PLATELET COUNT, AUTOMATED 189 10^3/uL (150-450); RED BLOOD COUNT 3.98 10^6/uL (4.00-5.40); WHITE BLOOD COUNT 6.1 10^3/uL (4.0-10.0)
[2022-04-14 13:05] LABS: BILIRUBIN,DIRECT < 0.1 MG/DL (<0.4)
[2022-04-14 13:06] LABS: ALBUMIN 3.4 G/DL (3.2-5.2); ALKALINE PHOSPHATASE 100 U/L (46-116); ALT/SGPT 43 U/L (7.0-40); AST/SGOT 78 U/L (<34); BILIRUBIN,TOTAL 0.3 MG/DL (0.3-1.2); LIPASE 21 U/L (12-53); TOTAL PROTEIN 7.4 G/DL (5.7-8.2)
[2022-04-14] MEDS ORDERED: ATOR40TA75 (13:07)
[2022-04-14 13:37] LABS: RSV AMPLIFICATION NEGATIVE (NEGATIVE)
[2022-04-14] MEDS ORDERED: GOLYLQ PO (13:45)
[2022-04-14 14:42] VITALS: BP 109/53
== END 2022-04-14 14:56 | disposition home or self-care (01) ==
LOC: EDBD 11:51 → M ED 11:51
DX: K59.00 Constipation, unspecified (principal); R10.84 Generalized abdominal pain; E11.9 Type 2 diabetes mellitus without complications; Z87.442 Personal history of urinary calculi; Z86.14 Personal history of Methicillin resistant Staphylococcus aureus infection; Z90.49 Acquired absence of other specified parts of digestive tract; Z93.2 Ileostomy status; Z79.4 Long term (current) use of insulin; Z79.899 Other long term (current) drug therapy; Z88.0 Allergy status to penicillin; Z88.2 Allergy status to sulfonamides; Z88.3 Allergy status to other anti-infective agents; Z88.1 Allergy status to other antibiotic agents; Z88.8 Allergy status to other drugs, medicaments and biological substances; Z88.5 Allergy status to narcotic agent; Z91.89 Other specified personal risk factors, not elsewhere classified; Z91.041 Radiographic dye allergy status; Z91.018 Allergy to other foods; Z91.040 Latex allergy status; Z91.02 Food additives allergy status
CPT/HCPCS: 74176; 80047; 80076; 83605; 83690; 85025; 87631; 96361; 96374; 99284; J2405

== ENCOUNTER → 2022-04-19 | Outpatient (REF) | payer OTHER ==
[~2022-04-19] MED LIST changes: +ATOR40TA75
== END ==
LOC: M SFHCPLAZ 14:58
PROVIDERS: ATTEND Physician Assistant
DX: N30.01 Acute cystitis with hematuria (principal)

== ENCOUNTER → 2022-05-02 | Outpatient (REF) | payer OTHER ==
[2022-05-02 11:22] LABS: APPEARANCE, URINE MANUAL HAZY (CLEAR); BILIRUBIN, URINE MANUAL NEGATIVE (NEGATIVE); BLOOD URINE MANUAL NEGATIVE (NEGATIVE); COLOR, URINE MANUAL YELLOW (YELLOW); GLUCOSE, URINE (UA) MANUAL NEGATIVE (NEGATIVE); KETONE, URINE MANUAL 1+ mg/dL (NEGATIVE); LEUKOCYTE ESTERASE, URINE MAN POSITIVE (NEGATIVE); NITRITE, URINE MANUAL NEGATIVE (NEGATIVE); PROTEIN, URINE MANUAL TRACE mg/dL (NEGATIVE); UROBILINOGEN, URINE MANUAL NORMAL (NORMAL)
[2022-05-02 11:35] LABS: BACTERIA, URINE SMALL AMOUNT; CALCIUM OXALATE CRYSTALS,URINE LARGE AMOUNT /hpf; RBC, URINE 0-1 /hpf (0-3); WBC, URINE 40-50 /hpf (0-3)
[2022-05-02 11:36] LABS: HYALINE CAST, URINE NONE SEEN /lpf (0-1); MUCUS, URINE MOD AMOUNT (NEGATIVE); SQUAMOUS EPITHELIAL CELL URINE MOD AMOUNT /hpf (SMALL AMT)
== END ==
LOC: M SFHCPLAZ 10:27
PROVIDERS: ATTEND Family Medicine
DX: N39.0 Urinary tract infection, site not specified (principal)

== ENCOUNTER 2022-05-07 15:51 | Emergency (ER) | payer OTHER ==
[~2022-05-07] VITALS: Ht 170.2 cm; Wt 77.3 kg
[~2022-05-07 15:51] MED LIST changes: +INSU100I6 SC; -LEVE1INJ5 SC; +MAGN4PIG IV; -[UNRECOGNIZED DRUG - CODE] IV
[2022-05-08] MEDS ORDERED: NS 1,000 ML IV ONE (03:45)
[2022-05-08] MEDS ORDERED: HYDROmorphone 2 MG TAB PO ONE (05:00)
[2022-05-08 05:18] VITALS: BP 142/66
== END 2022-05-08 06:13 | disposition home or self-care (01) ==
LOC: EDBD 15:51 → M ED 15:51
DX: E86.0 Dehydration (principal); R10.9 Unspecified abdominal pain; E11.9 Type 2 diabetes mellitus without complications; E78.5 Hyperlipidemia, unspecified; K21.9 Gastro-esophageal reflux disease without esophagitis; K74.60 Unspecified cirrhosis of liver; J45.909 Unspecified asthma, uncomplicated; F41.9 Anxiety disorder, unspecified; F32.9 Major depressive disorder, single episode, unspecified; Z79.4 Long term (current) use of insulin; Z79.899 Other long term (current) drug therapy; Z91.041 Radiographic dye allergy status; Z91.018 Allergy to other foods; Z88.3 Allergy status to other anti-infective agents; Z88.0 Allergy status to penicillin; Z88.2 Allergy status to sulfonamides; Z91.89 Other specified personal risk factors, not elsewhere classified; Z88.8 Allergy status to other drugs, medicaments and biological substances; Z88.1 Allergy status to other antibiotic agents; Z88.5 Allergy status to narcotic agent
CPT/HCPCS: 80047; 93005; 96360; 99284; J1642

== ENCOUNTER 2022-05-15 10:23 | Emergency (ER) | payer OTHER ==
[~2022-05-15] VITALS: Ht 170.2 cm; Wt 170.0 kg
[~2022-05-15 10:23] MED LIST changes: -INSU100I6 SC; +LEVE1INJ5 SC
[2022-05-15] MEDS ORDERED: HYDROmorphone 2 MG TAB PO ONE (13:45)
[2022-05-15 15:19] VITALS: BP 162/81
== END 2022-05-15 16:18 | disposition home or self-care (01) ==
LOC: M ED 10:23 → EDBD 10:23 → EDSEX 10:23 → M ED 16:18
DX: S93.402A Sprain of unspecified ligament of left ankle, initial encounter (principal); W00.0XXA Fall on same level due to ice and snow, initial encounter; Y92.009 Unspecified place in unspecified non-institutional (private) residence as the place of occurrence of the external cause; J45.909 Unspecified asthma, uncomplicated; E11.9 Type 2 diabetes mellitus without complications; Z88.0 Allergy status to penicillin; Z91.09 Other allergy status, other than to drugs and biological substances; Z88.1 Allergy status to other antibiotic agents; Z79.4 Long term (current) use of insulin; Z79.51 Long term (current) use of inhaled steroids; Z79.899 Other long term (current) drug therapy

== ENCOUNTER → 2022-05-27 | Outpatient (CLI) | payer OTHER | LOC: M WHC 07:20 | PROVIDERS: ATTEND Family Medicine | DX: K76.0 Fatty (change of) liver, not elsewhere classified (principal); Z90.49 Acquired absence of other specified parts of digestive tract; R93.2 Abnormal findings on diagnostic imaging of liver and biliary tract ==

== ENCOUNTER 2022-05-29 07:33 | Outpatient (CLI) | payer OTHER ==
[2022-05-29 08:00] VITALS: BP 112/71
[2022-05-29 08:40] LABS: HEMATOCRIT 38.3 % (36.0-47.0); HEMOGLOBIN 12.4 g/dl (12.0-15.5); MEAN CORPUSCULAR HEMOGLOBIN 31.7 pg (27.0-33.0); MEAN CORPUSCULAR HGB CONC 32.4 g/dl (32.0-36.5); PLATELET COUNT, AUTOMATED 193 10^3/uL (150-450); RED BLOOD COUNT 3.91 10^6/uL (4.00-5.40); WHITE BLOOD COUNT 7.4 10^3/uL (4.0-10.0)
[2022-05-29] MEDS ORDERED: SODIUM CHLORIDE 0.9% INJ 10 ML SYR IV SCH (09:00)
[2022-05-29] MEDS ORDERED: SODIUM CHLORIDE 0.9% INJ 10 ML SYR IV PRN (09:00)
[2022-05-29 09:01] LABS: BLOOD UREA NITROGEN 13 MG/DL (9-23); CALCIUM LEVEL 9.9 MG/DL (8.3-10.6); CARBON DIOXIDE LEVEL 28 MMOL/L (20-31); CHLORIDE LEVEL 107 MMOL/L (98-107); CREATININE FOR GFR 0.44 MG/DL (0.55-1.30); GLOMERULAR FILTRATION RATE > 60.0 (>45); GLUCOSE, FASTING 222 MG/DL (74-106); MAGNESIUM LEVEL 1.7 MG/DL (1.8-2.4); POTASSIUM SERUM 4.3 MMOL/L (3.5-5.1); SODIUM LEVEL 137 MMOL/L (136-145)
[2022-05-29 09:02] LABS: CREATININE, URINE 110.6 MG/DL; MAU/CREAT RATIO 2.7 MCG/MG (0.0-30.0)
[2022-05-29 09:06] LABS: ALBUMIN 3.3 G/DL (3.2-5.2); ALKALINE PHOSPHATASE 99 U/L (46-116); ALT/SGPT 39 U/L (7.0-40); AST/SGOT 43 U/L (<34); BILIRUBIN,TOTAL 0.3 MG/DL (0.3-1.2); BLOOD UREA NITROGEN 13 MG/DL (9-23); CARBON DIOXIDE LEVEL 26 MMOL/L (20-31); CHLORIDE LEVEL 103 MMOL/L (98-107); CREATININE FOR GFR 0.43 MG/DL (0.55-1.30); GLOMERULAR FILTRATION RATE > 60.0 (>45); GLUCOSE, FASTING 224 MG/DL (74-106); POTASSIUM SERUM 4.3 MMOL/L (3.5-5.1); SODIUM LEVEL 135 MMOL/L (136-145)
[2022-05-29 09:14] LABS: HEMOGLOBIN A1c 9.6 % (4.0-6.0)
[2022-05-29 09:21] LABS: HEPATITIS B SURFACE ANTIGEN NEGATIVE (NEGATIVE)
[2022-05-29 09:41] LABS: HEPATITIS B CORE ANTIBODY IGM NEGATIVE (NEGATIVE)
== END 2022-05-29 08:30 | disposition home or self-care (01) ==
LOC: M INFU 07:33
PROVIDERS: ATTEND Family Medicine
DX: E11.65 Type 2 diabetes mellitus with hyperglycemia (principal); E83.42 Hypomagnesemia; Z88.0 Allergy status to penicillin; Z88.2 Allergy status to sulfonamides; Z88.8 Allergy status to other drugs, medicaments and biological substances; Z88.5 Allergy status to narcotic agent; Z88.1 Allergy status to other antibiotic agents
CPT/HCPCS: 36591; 80048; 80053; 82043; 83036; 83735; 85027; 86705; 86709; 86803; 87340; 96523; J1642

== ENCOUNTER → 2022-06-06 | Outpatient (REF) | payer OTHER | LOC: M LAB REF 11:54 | PROVIDERS: ATTEND Physician Assistant | DX: R30.0 Dysuria (principal) ==

== ENCOUNTER → 2022-06-12 | Outpatient (REF) | payer OTHER ==
[~2022-06-12] MED LIST changes: +INSU100I6 SC; -LEVE1INJ5 SC
== END ==
LOC: M SFHCPLAZ 12:35
PROVIDERS: ATTEND Family Medicine
DX: Z53.9 Procedure and treatment not carried out, unspecified reason (principal)

== ENCOUNTER → 2022-06-12 | Outpatient (CLI) | payer OTHER ==
[2022-06-12 16:08] LABS: APPEARANCE, URINE HAZY (CLEAR); BACTERIA, URINE AUTO NEGATIVE (NEGATIVE); BILIRUBIN, URINE AUTO NEGATIVE (NEGATIVE); BLOOD, URINE BLOOD NEGATIVE (NEGATIVE); CALCIUM OXALATE CRYSTALS SMALL; COLOR, URINE YELLOW (YELLOW); GLUCOSE, URINE (UA) AUTO 1+ mg/dL (NEGATIVE); KETONE, URINE AUTO NEGATIVE (NEGATIVE); LEUKOCYTE ESTERASE, URINE AUTO TRACE (NEGATIVE); MUCUS, URINE SMALL (NEGATIVE); NITRITE, URINE AUTO NEGATIVE (NEGATIVE); PROTEIN, URINE AUTO NEGATIVE (NEGATIVE); RBC, URINE AUTO 1 /HPF (0-3); SQUAMOUS EPITHELIAL CELL UR AU 0 /HPF (0-6); UROBILINOGEN, URINE AUTO 0.2 mg/dL (0.0-2.0); WBC, URINE AUTO 3 /HPF (0-3)
== END ==
LOC: M PLALAB 12:46
PROVIDERS: ATTEND Student in an Organized Health Care Education/Training Program
DX: R30.0 Dysuria (principal)

== ENCOUNTER 2022-06-13 08:51 | Outpatient (CLI) | payer OTHER ==
[2022-06-13] MEDS ORDERED: SODIUM CHLORIDE 0.9% INJ 10 ML SYR IV SCH ×2 (09:00)
[2022-06-13] MEDS ORDERED: SODIUM CHLORIDE 0.9% INJ 10 ML SYR IV PRN (09:00)
[2022-06-13 09:25] VITALS: BP 114/73
[2022-06-13 09:52] LABS: BASO % 0.5 % (0.0-1.0); EOS % 0.6 % (0.0-3.0); HEMATOCRIT 39.7 % (36.0-47.0); HEMOGLOBIN 12.5 g/dl (12.0-15.5); LYMPH # 1.5 10^3/uL (1.5-5.0); LYMPH % 22.9 % (24.0-44.0); MEAN CORPUSCULAR HGB CONC 31.5 g/dl (32.0-36.5); MEAN CORPUSCULAR VOLUME 98.5 fl (80.0-96.0); MONO # 0.5 10^3/uL (0.0-0.8); NEUTROPHILS # 4.4 10^3/uL (1.5-8.5); NEUTROPHILS % 67.7 % (36.0-66.0); PLATELET COUNT, AUTOMATED 185 10^3/uL (150-450); RED BLOOD COUNT 4.03 10^6/uL (4.00-5.40); WHITE BLOOD COUNT 6.5 10^3/uL (4.0-10.0)
[2022-06-13 10:07] LABS: ALBUMIN 3.2 G/DL (3.2-5.2); BLOOD UREA NITROGEN 15 MG/DL (9-23); CALCIUM LEVEL 9.9 MG/DL (8.3-10.6); CARBON DIOXIDE LEVEL 27 MMOL/L (20-31); CHLORIDE LEVEL 104 MMOL/L (98-107); CREATININE FOR GFR 0.43 MG/DL (0.55-1.30); GLOMERULAR FILTRATION RATE > 60.0 (>45); GLUCOSE, FASTING 147 MG/DL (74-106); PHOSPHORUS LEVEL 3.3 MG/DL (2.4-5.1); POTASSIUM SERUM 4.1 MMOL/L (3.5-5.1); SODIUM LEVEL 137 MMOL/L (136-145)
== END 2022-06-13 09:25 | disposition home or self-care (01) ==
LOC: M INFU 08:51
PROVIDERS: ATTEND Student in an Organized Health Care Education/Training Program
DX: R30.0 Dysuria (principal); Z88.3 Allergy status to other anti-infective agents; Z88.0 Allergy status to penicillin; Z88.2 Allergy status to sulfonamides; Z88.8 Allergy status to other drugs, medicaments and biological substances; Z88.5 Allergy status to narcotic agent; Z88.1 Allergy status to other antibiotic agents
CPT/HCPCS: 36591; 80069; 85025; 96523; J1642

== ENCOUNTER 2022-06-13 17:38 | Emergency (ER) | payer OTHER ==
[~2022-06-13] VITALS: Ht 170.2 cm; Wt 72.7 kg
[2022-06-13] MEDS ORDERED: HYDROMORPHONE HCL 0.5 MG/ 0.5 ML SYRINGE IV ONE (20:00)
[2022-06-13] MEDS ORDERED: SODIUM CHLORIDE 0.9% INJ 10 ML SYR IV PRN (20:00)
[2022-06-13 20:42] LABS: BASO % 0.3 % (0.0-1.0); EOS % 0.6 % (0.0-3.0); HEMATOCRIT 38.3 % (36.0-47.0); HEMOGLOBIN 12.4 g/dl (12.0-15.5); LYMPH # 1.9 10^3/uL (1.5-5.0); LYMPH % 29.4 % (24.0-44.0); MEAN CORPUSCULAR HEMOGLOBIN 31.7 pg (27.0-33.0); MEAN CORPUSCULAR HGB CONC 32.4 g/dl (32.0-36.5); MONO # 0.6 10^3/uL (0.0-0.8); MONO % 8.9 % (2.0-8.0); NEUTROPHILS # 3.9 10^3/uL (1.5-8.5); NEUTROPHILS % 60.5 % (36.0-66.0); PLATELET COUNT, AUTOMATED 191 10^3/uL (150-450); RED BLOOD COUNT 3.91 10^6/uL (4.00-5.40); WHITE BLOOD COUNT 6.4 10^3/uL (4.0-10.0)
[2022-06-13] MEDS ORDERED: ONDANSETRON 4MG 2ML VIAL IV ONE (21:00)
[2022-06-13 21:31] VITALS: BP 121/72
[2022-06-13 21:45] LABS: ALBUMIN 3.3 G/DL (3.2-5.2); ALKALINE PHOSPHATASE 108 U/L (46-116); ALT/SGPT 41 U/L (7.0-40); AST/SGOT 57 U/L (<34); BLOOD UREA NITROGEN 19 MG/DL (9-23); CALCIUM LEVEL 9.9 MG/DL (8.3-10.6); CARBON DIOXIDE LEVEL 28 MMOL/L (20-31); CHLORIDE LEVEL 107 MMOL/L (98-107); CREATININE FOR GFR 0.44 MG/DL (0.55-1.30); GLOMERULAR FILTRATION RATE > 60.0 (>45); GLUCOSE, FASTING 115 MG/DL (74-106); LIPASE 26 U/L (12-53); POTASSIUM SERUM 3.9 MMOL/L (3.5-5.1); SODIUM LEVEL 141 MMOL/L (136-145); TOTAL PROTEIN 7.2 G/DL (5.7-8.2)
[2022-06-13 22:00] LABS: BILIRUBIN,DIRECT < 0.1 MG/DL (<0.4); BILIRUBIN,TOTAL 0.2 MG/DL (0.3-1.2)
== END 2022-06-13 22:31 | disposition home or self-care (01) ==
LOC: M ED 17:38
DX: N39.0 Urinary tract infection, site not specified (principal); E11.9 Type 2 diabetes mellitus without complications; K21.9 Gastro-esophageal reflux disease without esophagitis; E78.5 Hyperlipidemia, unspecified; Z87.442 Personal history of urinary calculi; Z86.73 Personal history of transient ischemic attack (TIA), and cerebral infarction without residual deficits; G89.29 Other chronic pain; Z79.4 Long term (current) use of insulin; Z79.899 Other long term (current) drug therapy; Z88.3 Allergy status to other anti-infective agents; Z88.0 Allergy status to penicillin; Z88.2 Allergy status to sulfonamides; Z88.8 Allergy status to other drugs, medicaments and biological substances; Z88.5 Allergy status to narcotic agent; Z91.89 Other specified personal risk factors, not elsewhere classified; Z91.018 Allergy to other foods; Z91.041 Radiographic dye allergy status
CPT/HCPCS: 74176; 80048; 80076; 81001; 83690; 85025; 87086; 93041; 96374; 96375; 99284; J1170; J1642; J2405

== ENCOUNTER → 2022-07-01 | Outpatient (CLI) | payer OTHER | LOC: M RAD 08:41 | PROVIDERS: ATTEND Student in an Organized Health Care Education/Training Program | DX: R10.9 Unspecified abdominal pain (principal) ==

== ENCOUNTER 2022-07-16 11:22 | Emergency (ER) | payer OTHER ==
[~2022-07-16] VITALS: Ht 170.2 cm; Wt 77.9 kg
[~2022-07-16 11:22] MED LIST changes: -KETO0.02 OU; +KETO5DRO33 OU; -MAGN1INJ2 IV; +MAGN1PIG IV; +SODIUM CHLORIDE 0.9% INJ 10 ML SYR IV SCH
[2022-07-16] MEDS ORDERED: HYDROMORPHONE HCL 0.5 MG/ 0.5 ML SYRINGE IV ONE ×2 (14:45→17:05)
[2022-07-16 14:59] LABS: BASO % 0.5 % (0.0-1.0); EOS # 0.1 10^3/uL (0.0-0.5); EOS % 1.1 % (0.0-3.0); HEMATOCRIT 36.8 % (36.0-47.0); HEMOGLOBIN 11.7 g/dl (12.0-15.5); LYMPH # 1.4 10^3/uL (1.5-5.0); LYMPH % 23.1 % (24.0-44.0); MEAN CORPUSCULAR HGB CONC 31.8 g/dl (32.0-36.5); MEAN CORPUSCULAR VOLUME 97.6 fl (80.0-96.0); MONO # 0.5 10^3/uL (0.0-0.8); MONO % 7.7 % (2.0-8.0); NEUTROPHILS # 4.1 10^3/uL (1.5-8.5); NEUTROPHILS % 67.3 % (36.0-66.0); PLATELET COUNT, AUTOMATED 200 10^3/uL (150-450); RED BLOOD COUNT 3.77 10^6/uL (4.00-5.40); WHITE BLOOD COUNT 6.1 10^3/uL (4.0-10.0)
[2022-07-16 15:23] LABS: LIPASE 31 U/L (12-53)
[2022-07-16 15:25] LABS: ALBUMIN 3.1 G/DL (3.2-5.2); ALKALINE PHOSPHATASE 105 U/L (46-116); ALT/SGPT 38 U/L (7.0-40); AMYLASE 30 U/L (30-118); AST/SGOT 37 U/L (<34); BILIRUBIN,DIRECT < 0.1 MG/DL (<0.4); BILIRUBIN,TOTAL 0.2 MG/DL (0.3-1.2); BLOOD UREA NITROGEN 13 MG/DL (9-23); CALCIUM LEVEL 10.5 MG/DL (8.3-10.6); CARBON DIOXIDE LEVEL 31 MMOL/L (20-31); CHLORIDE LEVEL 103 MMOL/L (98-107); GLOMERULAR FILTRATION RATE > 60.0 (>45); GLUCOSE, FASTING 134 MG/DL (74-106); POTASSIUM SERUM 3.8 MMOL/L (3.5-5.1); SODIUM LEVEL 140 MMOL/L (136-145); TOTAL PROTEIN 6.7 G/DL (5.7-8.2)
[2022-07-16 17:45] VITALS: BP 120/79
== END 2022-07-16 17:51 | disposition home or self-care (01) ==
LOC: M ED 11:22
DX: N20.2 Calculus of kidney with calculus of ureter (principal); Z93.2 Ileostomy status; K76.0 Fatty (change of) liver, not elsewhere classified; E11.9 Type 2 diabetes mellitus without complications; K21.9 Gastro-esophageal reflux disease without esophagitis; J45.909 Unspecified asthma, uncomplicated; Z86.73 Personal history of transient ischemic attack (TIA), and cerebral infarction without residual deficits; Z87.448 Personal history of other diseases of urinary system; Z90.49 Acquired absence of other specified parts of digestive tract; Z79.899 Other long term (current) drug therapy; Z88.3 Allergy status to other anti-infective agents; Z88.0 Allergy status to penicillin; Z88.2 Allergy status to sulfonamides; Z88.8 Allergy status to other drugs, medicaments and biological substances; Z88.5 Allergy status to narcotic agent; Z88.1 Allergy status to other antibiotic agents; Z91.02 Food additives allergy status; Z91.018 Allergy to other foods; Z91.89 Other specified personal risk factors, not elsewhere classified; Z91.041 Radiographic dye allergy status; Z91.040 Latex allergy status
CPT/HCPCS: 74176; 80048; 80076; 82150; 83690; 85025; 96374; 99284; J1170

== ENCOUNTER 2022-07-24 07:58 | Outpatient (CLI) | payer OTHER ==
[~2022-07-24] VITALS: Ht 170.2 cm; Wt 77.9 kg
[~2022-07-24 07:58] MED LIST changes: -SODIUM CHLORIDE 0.9% INJ 10 ML SYR IV SCH
[2022-07-24 08:05] VITALS: BP 126/70
[2022-07-24] MEDS ORDERED: SODIUM CHLORIDE 0.9% INJ 10 ML SYR IV PRN (08:30)
== END 2022-07-24 08:20 | disposition home or self-care (01) ==
LOC: M INFU 07:58
PROVIDERS: ATTEND Family Medicine
DX: E11.65 Type 2 diabetes mellitus with hyperglycemia (principal); E83.42 Hypomagnesemia; Z91.041 Radiographic dye allergy status; Z88.3 Allergy status to other anti-infective agents; Z88.0 Allergy status to penicillin; Z88.2 Allergy status to sulfonamides; Z88.8 Allergy status to other drugs, medicaments and biological substances; Z88.1 Allergy status to other antibiotic agents; Z88.5 Allergy status to narcotic agent

== ENCOUNTER → 2022-07-31 | Outpatient (CLI) | payer OTHER | LOC: M PAIN 08:30 | PROVIDERS: ATTEND Anesthesiology | DX: M96.1 Postlaminectomy syndrome, not elsewhere classified (principal); R10.9 Unspecified abdominal pain; M79.2 Neuralgia and neuritis, unspecified; E11.40 Type 2 diabetes mellitus with diabetic neuropathy, unspecified; J45.909 Unspecified asthma, uncomplicated; E78.5 Hyperlipidemia, unspecified; K21.9 Gastro-esophageal reflux disease without esophagitis; J32.0 Chronic maxillary sinusitis; G89.4 Chronic pain syndrome; Z79.899 Other long term (current) drug therapy; Z88.0 Allergy status to penicillin; Z88.1 Allergy status to other antibiotic agents; Z88.6 Allergy status to analgesic agent; Z88.2 Allergy status to sulfonamides; Z88.5 Allergy status to narcotic agent; Z88.8 Allergy status to other drugs, medicaments and biological substances | CPT/HCPCS: 76000; G0463 ==

== ENCOUNTER 2022-08-02 18:57 | Emergency (ER) | payer OTHER ==
[~2022-08-02] VITALS: Ht 165.1 cm; Wt 85.0 kg
[2022-08-02 19:59] LABS: BASO % 0.4 % (0.0-1.0); EOS % 0.5 % (0.0-3.0); HEMATOCRIT 35.1 % (36.0-47.0); HEMOGLOBIN 11.5 g/dl (12.0-15.5); LYMPH # 1.2 10^3/uL (1.5-5.0); MEAN CORPUSCULAR HEMOGLOBIN 31.4 pg (27.0-33.0); MEAN CORPUSCULAR HGB CONC 32.8 g/dl (32.0-36.5); MEAN CORPUSCULAR VOLUME 95.9 fl (80.0-96.0); MONO # 0.7 10^3/uL (0.0-0.8); MONO % 8.1 % (2.0-8.0); NEUTROPHILS # 6.4 10^3/uL (1.5-8.5); NEUTROPHILS % 76.6 % (36.0-66.0); PLATELET COUNT, AUTOMATED 190 10^3/uL (150-450); RED BLOOD COUNT 3.66 10^6/uL (4.00-5.40); WHITE BLOOD COUNT 8.3 10^3/uL (4.0-10.0)
[2022-08-02 20:38] LABS: BLOOD UREA NITROGEN 10 MG/DL (9-23); CALCIUM LEVEL 10.1 MG/DL (8.3-10.6); CARBON DIOXIDE LEVEL 30 MMOL/L (20-31); CHLORIDE LEVEL 99 MMOL/L (98-107); CREATININE FOR GFR 0.65 MG/DL (0.55-1.30); GLOMERULAR FILTRATION RATE > 60.0 (>45); GLUCOSE, FASTING 100 MG/DL (74-106); MAGNESIUM LEVEL 1.2 MG/DL (1.8-2.4); POTASSIUM SERUM 3.3 MMOL/L (3.5-5.1); SODIUM LEVEL 137 MMOL/L (136-145)
[2022-08-02 20:40] LABS: THYROID STIMULATING HORMONE 1.652 uIU/ML (0.55-4.78)
[2022-08-02 21:00] VITALS: BP 154/74
[2022-08-02] MEDS ORDERED: MAG SULF 1GM/100ML (MAG RUN) 1 GM in IV 1 EA IV ONE ×2 (21:05→22:00)
[2022-08-02] MEDS ORDERED: SODIUM CHLORIDE 0.9% INJ 10 ML SYR IV PRN (23:10)
[2022-08-03] MEDS ORDERED: SODIUM CHLORIDE 0.9% INJ 10 ML SYR IV SCH (09:00)
== END 2022-08-02 23:19 | disposition home or self-care (01) ==
LOC: M ED 18:57 → EDBD 18:57 → M ED 23:19
DX: E83.42 Hypomagnesemia (principal); R55 Syncope and collapse; E11.9 Type 2 diabetes mellitus without complications; Z86.73 Personal history of transient ischemic attack (TIA), and cerebral infarction without residual deficits; E78.5 Hyperlipidemia, unspecified; Z90.49 Acquired absence of other specified parts of digestive tract; Z79.4 Long term (current) use of insulin; Z79.899 Other long term (current) drug therapy; Z91.041 Radiographic dye allergy status; Z91.018 Allergy to other foods; Z88.3 Allergy status to other anti-infective agents; Z88.2 Allergy status to sulfonamides; Z88.0 Allergy status to penicillin; Z91.89 Other specified personal risk factors, not elsewhere classified; Z88.8 Allergy status to other drugs, medicaments and biological substances; Z91.02 Food additives allergy status
CPT/HCPCS: 80048; 83735; 84443; 85025; 93005; 93041; 94760; 96365; 99285; J3475

== ENCOUNTER 2022-08-09 08:12 | Outpatient (CLI) | payer OTHER ==
[~2022-08-09] VITALS: Ht 167.6 cm; Wt 78.0 kg
[~2022-08-09 08:12] MED LIST changes: +SODIUM CHLORIDE 0.9% INJ 10 ML SYR IV PRN
[2022-08-09 08:20] VITALS: BP 120/66
[2022-08-09] MEDS ORDERED: SODIUM CHLORIDE 0.9% INJ 10 ML SYR IV SCH (09:00)
[2022-08-09 09:37] LABS: BLOOD UREA NITROGEN 9 MG/DL (9-23); CARBON DIOXIDE LEVEL 27 MMOL/L (20-31); CHLORIDE LEVEL 104 MMOL/L (98-107); CREATININE FOR GFR 0.47 MG/DL (0.55-1.30); GLOMERULAR FILTRATION RATE > 60.0 (>45); GLUCOSE, FASTING 164 MG/DL (74-106); MAGNESIUM LEVEL 1.3 MG/DL (1.8-2.4); SODIUM LEVEL 139 MMOL/L (136-145)
== END 2022-08-09 08:35 | disposition home or self-care (01) ==
LOC: M INFU 08:12
PROVIDERS: ATTEND Student in an Organized Health Care Education/Training Program
DX: E87.6 Hypokalemia (principal); E83.42 Hypomagnesemia

== ENCOUNTER → 2022-08-12 | Outpatient (REF) | payer OTHER ==
[~2022-08-12] MED LIST changes: +POTA-298 PO; -POTA1TAB14 PO; -SODIUM CHLORIDE 0.9% INJ 10 ML SYR IV PRN
== END ==
LOC: M SFHCPLAZ 18:43
PROVIDERS: ATTEND Family Medicine
DX: E83.42 Hypomagnesemia (principal); E87.6 Hypokalemia; Z53.9 Procedure and treatment not carried out, unspecified reason

== ENCOUNTER 2022-08-13 10:30 | Outpatient (CLI) | payer OTHER ==
[2022-08-13 10:45] VITALS: BP 118/66
[2022-08-13] MEDS: MAG SULF 1GM/100ML (MAG RUN) X 2 DOSES (2GM TOTAL) IV SCH ×4 (10:51→11:51)
[2022-08-13] MEDS ORDERED: SODIUM CHLORIDE 0.9% INJ 10 ML SYR IV PRN (11:10)
== END 2022-08-13 13:15 | disposition home or self-care (01) ==
LOC: EDBD → M INFU 10:30
PROVIDERS: ATTEND Family Medicine
DX: E83.42 Hypomagnesemia (principal); Z88.3 Allergy status to other anti-infective agents; Z88.0 Allergy status to penicillin; Z88.2 Allergy status to sulfonamides; Z88.8 Allergy status to other drugs, medicaments and biological substances; Z88.1 Allergy status to other antibiotic agents; Z88.5 Allergy status to narcotic agent
CPT/HCPCS: 96365; 96366; J3475

== ENCOUNTER 2022-08-14 10:47 | Outpatient (CLI) | payer OTHER ==
[~2022-08-14] VITALS: Ht 165.1 cm; Wt 85.0 kg
[~2022-08-14 10:47] MED LIST changes: +SODIUM CHLORIDE 0.9% INJ 10 ML SYR IV PRN; +SODIUM CHLORIDE 0.9% INJ 10 ML SYR IV SCH
[2022-08-14 11:00] VITALS: BP 120/71
[2022-08-14] MEDS: MAG SULF 1GM/100ML (MAG RUN) X 2 DOSES (2GM TOTAL) IV SCH ×4 (11:13→12:15)
[2022-08-14 14:15] VITALS: BP 131/71
== END 2022-08-14 14:15 | disposition home or self-care (01) ==
LOC: M INFU 10:47
PROVIDERS: ATTEND Student in an Organized Health Care Education/Training Program
DX: E83.42 Hypomagnesemia (principal); Z88.3 Allergy status to other anti-infective agents; Z88.0 Allergy status to penicillin; Z88.2 Allergy status to sulfonamides; Z88.8 Allergy status to other drugs, medicaments and biological substances; Z88.1 Allergy status to other antibiotic agents; Z88.5 Allergy status to narcotic agent
CPT/HCPCS: 36591; 83735; 96365; 96366; 96523; J3475

== ENCOUNTER 2022-08-21 07:30 | Outpatient (CLI) | payer OTHER ==
[~2022-08-21] VITALS: Ht 170.2 cm; Wt 72.7 kg
[~2022-08-21 07:30] MED LIST changes: -SODIUM CHLORIDE 0.9% INJ 10 ML SYR IV PRN; -SODIUM CHLORIDE 0.9% INJ 10 ML SYR IV SCH
[2022-08-21 07:40] VITALS: BP 129/78
[2022-08-21] MEDS ORDERED: SODIUM CHLORIDE 0.9% INJ 10 ML SYR IV PRN (08:00)
[2022-08-21 09:13] LABS: HEMOGLOBIN A1c 9.6 % (4.0-6.0)
[2022-08-21 09:48] LABS: BLOOD UREA NITROGEN 21 MG/DL (9-23); CALCIUM LEVEL 9.6 MG/DL (8.3-10.6); CARBON DIOXIDE LEVEL 26 MMOL/L (20-31); CHLORIDE LEVEL 102 MMOL/L (98-107); CREATININE FOR GFR 0.47 MG/DL (0.55-1.30); GLOMERULAR FILTRATION RATE > 60.0 (>45); GLUCOSE, FASTING 244 MG/DL (74-106); MAGNESIUM LEVEL 1.5 MG/DL (1.8-2.4); POTASSIUM SERUM 4.1 MMOL/L (3.5-5.1); SODIUM LEVEL 138 MMOL/L (136-145)
== END 2022-08-21 07:45 | disposition home or self-care (01) ==
LOC: M INFU 07:30
PROVIDERS: ATTEND Family Medicine
DX: E83.42 Hypomagnesemia (principal); E11.65 Type 2 diabetes mellitus with hyperglycemia

== ENCOUNTER 2022-08-29 10:44 | Emergency (ER) | payer OTHER ==
[~2022-08-29] VITALS: Ht 170.2 cm; Wt 72.7 kg
[~2022-08-29 10:44] MED LIST changes: -ATOR40TA75; +ATOR40TA75 PO; -ONDA4INJ4 SC
[2022-08-29] MEDS ORDERED: ACETAMINOPHEN 500 MG TAB PO ONE (12:25)
[2022-08-29] MEDS ORDERED: MORPHINE 2 MG/ML 1ML VIAL IM ONE ×2 (12:45→13:45)
[2022-08-29] MEDS ORDERED: ONDANSETRON 4MG ORAL DISINTEGRATING TAB PO ONE (12:45)
[2022-08-29] MEDS ORDERED: diphenhydrAMINE 25MG CAP PO ONE (13:45)
[2022-08-29 16:19] VITALS: BP 140/60
[2022-08-30] MEDS ORDERED: HYDR2TAB2 PO (14:27)
[2022-08-30] MEDS ORDERED: VICT18IN SC (14:27)
[2022-08-30] MEDS ORDERED: POLY2.5S OS (14:27)
[2022-08-30] MEDS ORDERED: IPRA0.00 NEB (14:27)
[2022-08-30] MEDS ORDERED: EQL0.65S (14:27)
[2022-08-30] MEDS ORDERED: GOLYLQ PO (14:27)
[2022-08-30] MEDS ORDERED: FAMO20TA PO (14:27)
[2022-08-30] MEDS ORDERED: TOBRSUS39 OS (14:27)
[2022-08-30] MEDS ORDERED: INSUDET SC (14:27)
== END 2022-08-29 16:23 | disposition home or self-care (01) ==
LOC: M ED 10:44 → EDBD 10:44 → M ED 16:23
DX: S70.02XA Contusion of left hip, initial encounter (principal); W01.0XXA Fall on same level from slipping, tripping and stumbling without subsequent striking against object, initial encounter; E11.9 Type 2 diabetes mellitus without complications; Z86.711 Personal history of pulmonary embolism; Z88.0 Allergy status to penicillin; Z88.1 Allergy status to other antibiotic agents; Z88.2 Allergy status to sulfonamides; Z88.8 Allergy status to other drugs, medicaments and biological substances; Z91.041 Radiographic dye allergy status; Z91.048 Other nonmedicinal substance allergy status; Z79.52 Long term (current) use of systemic steroids; Z79.83 Long term (current) use of bisphosphonates; Z79.899 Other long term (current) drug therapy; Z79.02 Long term (current) use of antithrombotics/antiplatelets

== ENCOUNTER 2022-08-30 09:05 | Inpatient (IN) | payer OTHER ==
[2022-08-30] VITALS (9 sets, daily range): BP systolic 113–135; BP diastolic 58–69; O2SAT 90–96
[~2022-08-30] VITALS: Ht 170.2 cm; Wt 80.6 kg
[2022-08-30] MEDS ORDERED: HYDROMORPHONE HCL 0.5 MG/ 0.5 ML SYRINGE IV PRN (11:05)
[2022-08-30 11:17] LABS: BASO % 0.3 % (0.0-1.0); EOS % 0.6 % (0.0-3.0); HEMATOCRIT 35.6 % (36.0-47.0); HEMOGLOBIN 11.4 g/dl (12.0-15.5); LYMPH # 1.1 10^3/uL (1.5-5.0); LYMPH % 15.9 % (24.0-44.0); MEAN CORPUSCULAR HEMOGLOBIN 31.4 pg (27.0-33.0); MEAN CORPUSCULAR VOLUME 98.1 fl (80.0-96.0); MONO # 0.6 10^3/uL (0.0-0.8); MONO % 9.1 % (2.0-8.0); NEUTROPHILS % 73.8 % (36.0-66.0); PLATELET COUNT, AUTOMATED 188 10^3/uL (150-450); RED BLOOD COUNT 3.63 10^6/uL (4.00-5.40); WHITE BLOOD COUNT 6.8 10^3/uL (4.0-10.0)
[2022-08-30 11:31] LABS: INR 0.99; PROTHROMBIN TIME 13.3 SECONDS (12.5-14.5)
[2022-08-30 11:32] LABS: PARTIAL THROMBOPLASTIN TIME 41.7 SECONDS (24.8-34.2)
[2022-08-30 12:16] LABS: ALBUMIN 3.1 G/DL (3.2-5.2); ALKALINE PHOSPHATASE 122 U/L (46-116); ALT/SGPT 35 U/L (7.0-40); AST/SGOT 35 U/L (<34); BILIRUBIN,DIRECT 0.2 MG/DL (<0.4); BILIRUBIN,TOTAL 0.5 MG/DL (0.3-1.2); BLOOD UREA NITROGEN 13 MG/DL (9-23); CALCIUM LEVEL 10.1 MG/DL (8.3-10.6); CARBON DIOXIDE LEVEL 28 MMOL/L (20-31); CHLORIDE LEVEL 102 MMOL/L (98-107); CREATININE FOR GFR 0.47 MG/DL (0.55-1.30); GLOMERULAR FILTRATION RATE > 60.0 (>45); GLUCOSE, FASTING 219 MG/DL (74-106); SODIUM LEVEL 135 MMOL/L (136-145); TOTAL PROTEIN 7.2 G/DL (5.7-8.2)
[2022-08-30] MEDS ORDERED: GLUCAGON INJ 1MG VIAL SC PRN (13:15)
[2022-08-30] MEDS ORDERED: NS 1,000 ML IV SCH (13:15)
[2022-08-30] MEDS ORDERED: DEXTROSE 50% 50ML SYRINGE IV PRN (13:15)
[2022-08-30] MEDS ORDERED: GLUCOSE 4GM CHEW TABLET PO PRN (13:15)
[2022-08-30] MEDS ORDERED: GOLYLQ PO (14:27)
[2022-08-30] MEDS ORDERED: TOBRSUS39 OS (14:27)
[2022-08-30] MEDS ORDERED: FAMO20TA PO (14:27)
[2022-08-30] MEDS ORDERED: VICT18IN SC (14:27)
[2022-08-30] MEDS ORDERED: POLY2.5S OS (14:27)
[2022-08-30] MEDS ORDERED: INSUDET SC (14:27)
[2022-08-30] MEDS ORDERED: IPRA0.00 NEB (14:27)
[2022-08-30] MEDS ORDERED: EQL0.65S (14:27)
[2022-08-30] MEDS ORDERED: HYDR2TAB2 PO (14:27)
[2022-08-30 14:29] LABS: RSV AMPLIFICATION NEGATIVE (NEGATIVE)
[2022-08-30] MEDS ORDERED: HOME MED LIST COMPLETE! XX SCH (14:30)
[2022-08-30] MEDS ORDERED: ALBUTEROL 90 MCG/ACT 8GM HFA INHALER INH PRN (14:35)
[2022-08-30] MEDS ORDERED: TRIAMCINOLONE ACET 0.1% CREAM 80GM TOP PRN (14:35)
[2022-08-30] MEDS ORDERED: LIDOCAINE 1% MDV 20ML VIAL As Ordered ONE (14:44)
[2022-08-30] MEDS: INSULIN LISPRO (NovoLOG) PER UNIT SC SCH ×3 (14:55→20:14)
[2022-08-30] MEDS: HYDROMORPHONE HCL 0.5 MG/ 0.5 ML SYRINGE IV PRN ×2 (16:03→20:36)
[2022-08-30 16:09] LABS: ERYTHROCYTE SEDIMENTATION RATE > 130 mm/hr (0-30)
[2022-08-30 16:13] LABS: SOURCE, BODY FLUID URIC ACID OTHER
[2022-08-30 16:14] LABS: SOURCE, BODY FLUID GLUCOSE HIP LEFT
[2022-08-30] MEDS ORDERED: GOLYTELY SOLN 4000 ML BTL PO SCH (17:00)
[2022-08-30 17:11] LABS: SYNOVIAL FLUID COLOR YELLOW (COLORLESS)
[2022-08-30] MEDS: POLYTRIM OPTH DROPS 10ML OS SCH ×2 (18:29→20:36)
[2022-08-30] MEDS: LACTULOSE 20GM/30ML SYRUP UDC PO SCH ×2 (18:29→20:33)
[2022-08-30] MEDS: METOCLOPRAMIDE 10MG TAB PO SCH (18:29)
[2022-08-30] MEDS: SIMETHICONE 80MG CHEW TAB PO SCH ×2 (18:29→20:34)
[2022-08-30] MEDS: DICYCLOMINE 10 MG CAP PO SCH ×2 (18:29→20:35)
[2022-08-30 18:52] LABS: SOURCE, BODY FLUID LT HIP
[2022-08-30 19:14] LABS: CRYSTALS, BODY FLUID NONE SEEN (NONE SEEN); SOURCE, BODY FLUID CRYSTALS LEFT HIP
[2022-08-30] MEDS: cefTRIAXone SOD 2 GM in D5W MINI-BAG PLUS 50 ML IV SCH (20:32)
[2022-08-30] MEDS: ATORVASTATIN 20 MG TAB PO SCH (20:34)
[2022-08-30] MEDS: SENOKOT S TAB PO SCH (20:34)
[2022-08-30] MEDS: AMITRIPTYLINE 50 MG TAB PO SCH (20:34)
[2022-08-30] MEDS: SUCRALFATE 1 GM TAB PO SCH (20:34)
[2022-08-30] MEDS: FAMOTIDINE 20 MG TAB PO SCH (20:35)
[2022-08-30] MEDS: ONDANSETRON 4MG 2ML VIAL IV SCH (20:35)
[2022-08-30] MEDS: TOBRADEX OPHTH SUSP 2.5 ML OS SCH (20:36)
[2022-08-30] MEDS: MUPIROCIN 2% OINT 22 GM TUBE TOP SCH (20:36)
[2022-08-30] MEDS: FLUTICASONE PROP 0.05% NASAL SPRAY 16 GM (FLONASE) NARES SCH (20:37)
[2022-08-30] MEDS ORDERED: VANCOMYCIN HCL 750 MG, VIAL MATE ADAPTER 1 EACH in D5W 250 ML IV ONE ×2 (22:00→23:00)
[2022-08-31] VITALS (33 sets, daily range): BP systolic 119–144; BP diastolic 58–89; O2SAT 90–96
[2022-08-31] MEDS: HYDROMORPHONE HCL 0.5 MG/ 0.5 ML SYRINGE IV PRN ×6 (00:34→22:21)
[2022-08-31] MEDS: SODIUM CHLORIDE 0.9% INJ 10 ML SYR IV PRN (04:45)
[2022-08-31 05:57] LABS: BASO % 0.3 % (0.0-1.0); EOS # 0.1 10^3/uL (0.0-0.5); EOS % 1.2 % (0.0-3.0); HEMATOCRIT 35.7 % (36.0-47.0); HEMOGLOBIN 11.4 g/dl (12.0-15.5); LYMPH # 1.1 10^3/uL (1.5-5.0); LYMPH % 14.5 % (24.0-44.0); MEAN CORPUSCULAR HEMOGLOBIN 31.6 pg (27.0-33.0); MEAN CORPUSCULAR HGB CONC 31.9 g/dl (32.0-36.5); MEAN CORPUSCULAR VOLUME 98.9 fl (80.0-96.0); MONO # 0.6 10^3/uL (0.0-0.8); MONO % 8.1 % (2.0-8.0); NEUTROPHILS # 5.5 10^3/uL (1.5-8.5); NEUTROPHILS % 75.6 % (36.0-66.0); PLATELET COUNT, AUTOMATED 195 10^3/uL (150-450); RED BLOOD COUNT 3.61 10^6/uL (4.00-5.40); WHITE BLOOD COUNT 7.3 10^3/uL (4.0-10.0)
[2022-08-31] MEDS: VANCOMYCIN HCL 1,000 MG, VIAL MATE ADAPTER 1 EACH in D5W 250 ML IV SCH ×2 (06:04→17:40)
[2022-08-31 07:49] LABS: BLOOD UREA NITROGEN 8 MG/DL (9-23); CALCIUM LEVEL 9.1 MG/DL (8.3-10.6); CARBON DIOXIDE LEVEL 26 MMOL/L (20-31); CHLORIDE LEVEL 105 MMOL/L (98-107); CREATININE FOR GFR 0.48 MG/DL (0.55-1.30); GLOMERULAR FILTRATION RATE > 60.0 (>45); GLUCOSE, FASTING 155 MG/DL (74-106); MAGNESIUM LEVEL 1.4 MG/DL (1.8-2.4); POTASSIUM SERUM 3.7 MMOL/L (3.5-5.1); SODIUM LEVEL 140 MMOL/L (136-145)
[2022-08-31] MEDS: INSULIN LISPRO (NovoLOG) PER UNIT SC SCH ×4 (08:26→20:23)
[2022-08-31] MEDS ORDERED: LEVEMIR (INSULIN DETEMIR) 1 UNITS/0.01ML SC SCH (09:00)
[2022-08-31] MEDS: METOCLOPRAMIDE 10MG TAB PO SCH ×3 (09:50→17:59)
[2022-08-31] MEDS: LACTULOSE 20GM/30ML SYRUP UDC PO SCH ×4 (09:50→20:20)
[2022-08-31] MEDS: SIMETHICONE 80MG CHEW TAB PO SCH ×4 (09:50→20:21)
[2022-08-31] MEDS: AMITRIPTYLINE 50 MG TAB PO SCH ×2 (09:51→20:22)
[2022-08-31] MEDS: ENOXAPARIN 40MG/0.4ML SYRINGE (J1650 PER 10MG) SC SCH (09:51)
[2022-08-31] MEDS: ONDANSETRON 4MG 2ML VIAL IV SCH ×2 (09:51→20:22)
[2022-08-31] MEDS: SUCRALFATE 1 GM TAB PO SCH ×2 (09:51→20:22)
[2022-08-31] MEDS: FAMOTIDINE 20 MG TAB PO SCH ×2 (09:52→20:22)
[2022-08-31] MEDS: VITAMIN D 1,000 INTERNATIONAL UNITS TABLET PO SCH (09:52)
[2022-08-31] MEDS: DICYCLOMINE 10 MG CAP PO SCH ×4 (09:52→20:21)
[2022-08-31] MEDS: MUPIROCIN 2% OINT 22 GM TUBE TOP SCH ×3 (09:53→20:23)
[2022-08-31] MEDS: FLUTICASONE PROP 0.05% NASAL SPRAY 16 GM (FLONASE) NARES SCH (09:53)
[2022-08-31] MEDS: POLYTRIM OPTH DROPS 10ML OS SCH ×4 (09:53→20:23)
[2022-08-31] MEDS: SODIUM CHLORIDE NASAL 0.65% SPRAY BTL (OCEAN) SCH (09:53)
[2022-08-31] MEDS: SODIUM CHLORIDE 0.9% INJ 10 ML SYR IV SCH (09:53)
[2022-08-31] MEDS: TOBRADEX OPHTH SUSP 2.5 ML OS SCH ×4 (09:53→20:24)
[2022-08-31] MEDS: LACTIC ACID 12% LOTION 225 GM BTL TOP SCH (09:54)
[2022-08-31] MEDS: MAG SULF 1GM/100ML (MAG RUN) 1 GM in IV 1 EA IV SCH ×4 (11:02→15:47)
[2022-08-31] MEDS: cefTRIAXone SOD 2 GM in D5W MINI-BAG PLUS 50 ML IV SCH (19:02)
[2022-08-31] MEDS: ATORVASTATIN 20 MG TAB PO SCH (20:21)
[2022-08-31] MEDS: SENOKOT S TAB PO SCH (20:21)
[2022-08-31 23:18] LABS: CRYSTALS, BODY FLUID NONE SEEN (NONE SEEN); SOURCE, BODY FLUID CRYSTALS LFT KNEE
[2022-09-01] VITALS (28 sets, daily range): BP systolic 111–173; BP diastolic 55–83; O2SAT 91–98
[2022-09-01] MEDS: SODIUM CHLORIDE 0.9% INJ 10 ML SYR IV PRN (00:39)
[2022-09-01] MEDS: HYDROMORPHONE HCL 0.5 MG/ 0.5 ML SYRINGE IV PRN ×5 (01:52→19:35)
[2022-09-01] MEDS ORDERED: ALTEPLASE 2MG/2ML VIAL IV ONE (03:00)
[2022-09-01 04:27] LABS: BASO % 0.4 % (0.0-1.0); EOS % 0.1 % (0.0-3.0); HEMATOCRIT 34.4 % (36.0-47.0); HEMOGLOBIN 10.9 g/dl (12.0-15.5); LYMPH # 0.8 10^3/uL (1.5-5.0); LYMPH % 10.7 % (24.0-44.0); MEAN CORPUSCULAR HEMOGLOBIN 31.3 pg (27.0-33.0); MEAN CORPUSCULAR HGB CONC 31.7 g/dl (32.0-36.5); MEAN CORPUSCULAR VOLUME 98.9 fl (80.0-96.0); MONO # 0.8 10^3/uL (0.0-0.8); MONO % 10.2 % (2.0-8.0); NEUTROPHILS # 6.2 10^3/uL (1.5-8.5); NEUTROPHILS % 78.2 % (36.0-66.0); PLATELET COUNT, AUTOMATED 194 10^3/uL (150-450); RED BLOOD COUNT 3.48 10^6/uL (4.00-5.40); WHITE BLOOD COUNT 7.9 10^3/uL (4.0-10.0)
[2022-09-01 04:48] LABS: VANCOMYCIN LEVEL TROUGH 7.9 UG/ML (10.0-20.0)
[2022-09-01 04:49] LABS: BLOOD UREA NITROGEN 6 MG/DL (9-23); CALCIUM LEVEL 8.5 MG/DL (8.3-10.6); CARBON DIOXIDE LEVEL 27 MMOL/L (20-31); CHLORIDE LEVEL 101 MMOL/L (98-107); CREATININE FOR GFR 0.39 MG/DL (0.55-1.30); GLOMERULAR FILTRATION RATE > 60.0 (>45); GLUCOSE, FASTING 288 MG/DL (74-106); MAGNESIUM LEVEL 1.8 MG/DL (1.8-2.4); POTASSIUM SERUM 3.8 MMOL/L (3.5-5.1); SODIUM LEVEL 134 MMOL/L (136-145)
[2022-09-01] MEDS: VANCOMYCIN HCL 1,000 MG, VIAL MATE ADAPTER 1 EACH in D5W 250 ML IV SCH (04:59)
[2022-09-01] MEDS: SIMETHICONE 80MG CHEW TAB PO SCH ×4 (07:32→22:49)
[2022-09-01] MEDS: METOCLOPRAMIDE 10MG TAB PO SCH ×3 (07:32→17:29)
[2022-09-01] MEDS: INSULIN LISPRO (NovoLOG) PER UNIT SC SCH ×4 (07:33→22:48)
[2022-09-01] MEDS: LACTULOSE 20GM/30ML SYRUP UDC PO SCH ×4 (08:53→22:48)
[2022-09-01] MEDS: LEVEMIR (INSULIN DETEMIR) 1 UNITS/0.01ML SC SCH (08:53)
[2022-09-01] MEDS: MUPIROCIN 2% OINT 22 GM TUBE TOP SCH ×3 (08:54→22:51)
[2022-09-01] MEDS: TOBRADEX OPHTH SUSP 2.5 ML OS SCH ×4 (08:54→22:51)
[2022-09-01] MEDS: POLYTRIM OPTH DROPS 10ML OS SCH ×4 (08:54→22:51)
[2022-09-01] MEDS: FLUTICASONE PROP 0.05% NASAL SPRAY 16 GM (FLONASE) NARES SCH (08:54)
[2022-09-01] MEDS: SODIUM CHLORIDE NASAL 0.65% SPRAY BTL (OCEAN) SCH (08:54)
[2022-09-01] MEDS: VITAMIN D 1,000 INTERNATIONAL UNITS TABLET PO SCH (08:55)
[2022-09-01] MEDS: SUCRALFATE 1 GM TAB PO SCH ×2 (08:55→22:50)
[2022-09-01] MEDS: predniSONE 20 MG TAB PO SCH (08:55)
[2022-09-01] MEDS: ENOXAPARIN 40MG/0.4ML SYRINGE (J1650 PER 10MG) SC SCH (08:55)
[2022-09-01] MEDS: DICYCLOMINE 10 MG CAP PO SCH ×4 (08:55→22:50)
[2022-09-01] MEDS: FAMOTIDINE 20 MG TAB PO SCH ×2 (08:55→22:49)
[2022-09-01] MEDS: ONDANSETRON 4MG 2ML VIAL IV SCH ×2 (08:56→22:49)
[2022-09-01] MEDS: SODIUM CHLORIDE 0.9% INJ 10 ML SYR IV SCH (08:57)
[2022-09-01] MEDS: LACTIC ACID 12% LOTION 225 GM BTL TOP SCH (08:57)
[2022-09-01] MEDS: NYSTATIN 100,000 UNITS/GM TOPICAL PWD 15GM TOP PRN (08:59)
[2022-09-01] MEDS: AMITRIPTYLINE 50 MG TAB PO SCH ×2 (08:59→22:50)
[2022-09-01] MEDS ORDERED: VANCOMYCIN HCL 1,000 MG, VIAL MATE ADAPTER 1 EACH in D5W 250 ML IV SCH (13:00)
[2022-09-01] MEDS ORDERED: LR 1,000 ML IV SCH ×2 (20:30→23:05)
[2022-09-01] MEDS ORDERED: LIDOCAINE 1% SDV 30ML VIAL As Ordered ONE (20:56)
[2022-09-01] MEDS ORDERED: BUPIVACAINE HCL 0.25% 30ML VIAL As Ordered ONE (20:56)
[2022-09-01] MEDS ORDERED: ceFAZolin 2 GM/D5W 50 ML IV BAG As Ordered ONE (21:37)
[2022-09-01] MEDS ORDERED: MIDAZOLAM INJ 2MG/2ML VIAL As Ordered ONE (21:37)
[2022-09-01] MEDS ORDERED: fentaNYL 100 MCG/2 ML INJECTION As Ordered ONE (21:37)
[2022-09-01] MEDS: SENOKOT S TAB PO SCH (22:49)
[2022-09-01] MEDS: ATORVASTATIN 20 MG TAB PO SCH (22:50)
[2022-09-02] VITALS (25 sets, daily range): BP systolic 106–118; BP diastolic 55–64; O2SAT 83–98
[2022-09-02] MEDS: HYDROMORPHONE HCL 0.5 MG/ 0.5 ML SYRINGE IV PRN ×7 (02:37→23:52)
[2022-09-02 05:16] LABS: BASO % 0.3 % (0.0-1.0); EOS % 0.1 % (0.0-3.0); HEMATOCRIT 32.2 % (36.0-47.0); HEMOGLOBIN 10.3 g/dl (12.0-15.5); LYMPH # 1.4 10^3/uL (1.5-5.0); LYMPH % 17.8 % (24.0-44.0); MEAN CORPUSCULAR HEMOGLOBIN 31.2 pg (27.0-33.0); MEAN CORPUSCULAR VOLUME 97.6 fl (80.0-96.0); MONO # 0.8 10^3/uL (0.0-0.8); MONO % 10.4 % (2.0-8.0); NEUTROPHILS # 5.5 10^3/uL (1.5-8.5); PLATELET COUNT, AUTOMATED 210 10^3/uL (150-450); WHITE BLOOD COUNT 7.7 10^3/uL (4.0-10.0)
[2022-09-02 05:54] LABS: BLOOD UREA NITROGEN 6 MG/DL (9-23); CALCIUM LEVEL 9.3 MG/DL (8.3-10.6); CARBON DIOXIDE LEVEL 30 MMOL/L (20-31); CHLORIDE LEVEL 105 MMOL/L (98-107); GLOMERULAR FILTRATION RATE > 60.0 (>45); GLUCOSE, FASTING 178 MG/DL (74-106); MAGNESIUM LEVEL 1.6 MG/DL (1.8-2.4); SODIUM LEVEL 138 MMOL/L (136-145)
[2022-09-02] MEDS ORDERED: CEFEPIME HCL 2 GM in D5W MINI-BAG PLUS 50 ML IV SCH (08:00)
[2022-09-02] MEDS: METOCLOPRAMIDE 10MG TAB PO SCH ×3 (08:42→17:38)
[2022-09-02] MEDS: SIMETHICONE 80MG CHEW TAB PO SCH ×4 (08:42→20:51)
[2022-09-02] MEDS: LEVEMIR (INSULIN DETEMIR) 1 UNITS/0.01ML SC SCH (08:43)
[2022-09-02] MEDS: INSULIN LISPRO (NovoLOG) PER UNIT SC SCH ×4 (08:43→20:52)
[2022-09-02] MEDS: AMITRIPTYLINE 50 MG TAB PO SCH ×2 (08:44→20:51)
[2022-09-02] MEDS: SODIUM CHLORIDE 0.9% INJ 10 ML SYR IV SCH (08:44)
[2022-09-02] MEDS: SUCRALFATE 1 GM TAB PO SCH ×2 (08:44→20:51)
[2022-09-02] MEDS: VITAMIN D 1,000 INTERNATIONAL UNITS TABLET PO SCH (08:44)
[2022-09-02] MEDS: LACTULOSE 20GM/30ML SYRUP UDC PO SCH ×4 (08:45→20:53)
[2022-09-02] MEDS: FAMOTIDINE 20 MG TAB PO SCH ×2 (08:45→20:51)
[2022-09-02] MEDS: ONDANSETRON 4MG 2ML VIAL IV SCH ×2 (08:45→20:53)
[2022-09-02] MEDS: DICYCLOMINE 10 MG CAP PO SCH ×4 (08:45→20:51)
[2022-09-02] MEDS: SODIUM CHLORIDE NASAL 0.65% SPRAY BTL (OCEAN) SCH (08:45)
[2022-09-02] MEDS: predniSONE 20 MG TAB PO SCH (08:45)
[2022-09-02] MEDS: MUPIROCIN 2% OINT 22 GM TUBE TOP SCH ×3 (08:45→20:54)
[2022-09-02] MEDS: NYSTATIN 100,000 UNITS/GM TOPICAL PWD 15GM TOP PRN (08:45)
[2022-09-02] MEDS: LACTIC ACID 12% LOTION 225 GM BTL TOP SCH (08:46)
[2022-09-02] MEDS: ENOXAPARIN 40MG/0.4ML SYRINGE (J1650 PER 10MG) SC SCH (08:46)
[2022-09-02] MEDS: TOBRADEX OPHTH SUSP 2.5 ML OS SCH ×4 (08:46→20:54)
[2022-09-02] MEDS: FLUTICASONE PROP 0.05% NASAL SPRAY 16 GM (FLONASE) NARES SCH (08:46)
[2022-09-02] MEDS: POLYTRIM OPTH DROPS 10ML OS SCH ×4 (08:46→20:54)
[2022-09-02] MEDS: VANCOMYCIN HCL 1,000 MG, VIAL MATE ADAPTER 1 EACH in D5W 250 ML IV SCH ×2 (08:47→17:35)
[2022-09-02] MEDS: MAG SULF 1GM/100ML (MAG RUN) 1 GM in IV 1 EA IV SCH ×3 (10:09→15:40)
[2022-09-02] MEDS: metroNIDAZOLE 500 MG in IV 1 EA IV SCH ×2 (13:46→19:01)
[2022-09-02] MEDS: CEFEPIME HCL 2 GM in D5W MINI-BAG PLUS 50 ML IV SCH (15:29)
[2022-09-02] MEDS ORDERED: MAG SULF 1GM/100ML (MAG RUN) 1 GM in IV 1 EA IV SCH (17:00)
[2022-09-02] MEDS: SENOKOT S TAB PO SCH (20:51)
[2022-09-02] MEDS: ATORVASTATIN 20 MG TAB PO SCH (20:52)
[2022-09-02] MEDS: IPRATROPIUM 0.5MG/ALBUTEROL 2.5MG INH SOL UD 3ML (DUONEB) NEB PRN (22:10)
[2022-09-02] MEDS ORDERED: diphenhydrAMINE 50MG/ML VIAL IV STA (22:31)
[2022-09-03] VITALS (10 sets, daily range): BP systolic 104–127; BP diastolic 51–62; O2SAT 93–95
[2022-09-03] MEDS: VANCOMYCIN HCL 1,000 MG, VIAL MATE ADAPTER 1 EACH in D5W 250 ML IV SCH ×3 (01:19→18:26)
[2022-09-03] MEDS: metroNIDAZOLE 500 MG in IV 1 EA IV SCH ×3 (02:43→19:58)
[2022-09-03] MEDS: CEFEPIME HCL 2 GM in D5W MINI-BAG PLUS 50 ML IV SCH ×2 (03:48→17:36)
[2022-09-03] MEDS: HYDROMORPHONE HCL 0.5 MG/ 0.5 ML SYRINGE IV PRN ×2 (03:50→08:48)
[2022-09-03 05:56] LABS: RED BLOOD COUNT 3.26 10^6/uL (4.00-5.40); WHITE BLOOD COUNT 7.1 10^3/uL (4.0-10.0)
[2022-09-03 05:57] LABS: BASO % 0.4 % (0.0-1.0); EOS % 0.3 % (0.0-3.0); HEMATOCRIT 32.1 % (36.0-47.0); HEMOGLOBIN 10.1 g/dl (12.0-15.5); LYMPH # 1.5 10^3/uL (1.5-5.0); LYMPH % 20.6 % (24.0-44.0); MEAN CORPUSCULAR HGB CONC 31.5 g/dl (32.0-36.5); MEAN CORPUSCULAR VOLUME 98.5 fl (80.0-96.0); MONO # 0.7 10^3/uL (0.0-0.8); MONO % 9.2 % (2.0-8.0); NEUTROPHILS # 4.9 10^3/uL (1.5-8.5); NEUTROPHILS % 69.2 % (36.0-66.0); PLATELET COUNT, AUTOMATED 217 10^3/uL (150-450)
[2022-09-03 06:31] LABS: BLOOD UREA NITROGEN 10 MG/DL (9-23); CALCIUM LEVEL 8.6 MG/DL (8.3-10.6); CARBON DIOXIDE LEVEL 28 MMOL/L (20-31); CHLORIDE LEVEL 106 MMOL/L (98-107); CREATININE FOR GFR 0.41 MG/DL (0.55-1.30); GLOMERULAR FILTRATION RATE > 60.0 (>45); GLUCOSE, FASTING 239 MG/DL (74-106); MAGNESIUM LEVEL 1.7 MG/DL (1.8-2.4); POTASSIUM SERUM 3.7 MMOL/L (3.5-5.1); SODIUM LEVEL 140 MMOL/L (136-145)
[2022-09-03] MEDS: IPRATROPIUM 0.5MG/ALBUTEROL 2.5MG INH SOL UD 3ML (DUONEB) NEB PRN ×2 (08:37→16:40)
[2022-09-03] MEDS: DICYCLOMINE 10 MG CAP PO SCH ×4 (09:22→21:15)
[2022-09-03] MEDS: LACTULOSE 20GM/30ML SYRUP UDC PO SCH ×4 (09:22→21:14)
[2022-09-03] MEDS: VITAMIN D 1,000 INTERNATIONAL UNITS TABLET PO SCH (09:22)
[2022-09-03] MEDS: predniSONE 20 MG TAB PO SCH (09:22)
[2022-09-03] MEDS: FAMOTIDINE 20 MG TAB PO SCH ×2 (09:22→21:14)
[2022-09-03] MEDS: SIMETHICONE 80MG CHEW TAB PO SCH ×4 (09:22→21:15)
[2022-09-03] MEDS: SUCRALFATE 1 GM TAB PO SCH ×2 (09:22→21:15)
[2022-09-03] MEDS: METOCLOPRAMIDE 10MG TAB PO SCH ×3 (09:22→17:38)
[2022-09-03] MEDS: ENOXAPARIN 40MG/0.4ML SYRINGE (J1650 PER 10MG) SC SCH (09:23)
[2022-09-03] MEDS: SODIUM CHLORIDE 0.9% INJ 10 ML SYR IV SCH (09:23)
[2022-09-03] MEDS: POLYTRIM OPTH DROPS 10ML OS SCH ×4 (09:24→21:16)
[2022-09-03] MEDS: ONDANSETRON 4MG 2ML VIAL IV SCH ×2 (09:24→21:16)
[2022-09-03] MEDS: SODIUM CHLORIDE NASAL 0.65% SPRAY BTL (OCEAN) SCH (09:24)
[2022-09-03] MEDS: FLUTICASONE PROP 0.05% NASAL SPRAY 16 GM (FLONASE) NARES SCH (09:25)
[2022-09-03] MEDS: LACTIC ACID 12% LOTION 225 GM BTL TOP SCH (09:25)
[2022-09-03] MEDS: LEVEMIR (INSULIN DETEMIR) 1 UNITS/0.01ML SC SCH (09:26)
[2022-09-03] MEDS: INSULIN LISPRO (NovoLOG) PER UNIT SC SCH ×5 (09:26→21:13)
[2022-09-03] MEDS: MUPIROCIN 2% OINT 22 GM TUBE TOP SCH ×3 (09:27→21:17)
[2022-09-03] MEDS: TOBRADEX OPHTH SUSP 2.5 ML OS SCH ×4 (09:27→21:16)
[2022-09-03] MEDS: AMITRIPTYLINE 50 MG TAB PO SCH ×2 (09:44→21:14)
[2022-09-03] MEDS: HYDROmorphone 2 MG TAB PO PRN ×3 (13:22→23:57)
[2022-09-03] MEDS: SENOKOT S TAB PO SCH (21:14)
[2022-09-03] MEDS: ATORVASTATIN 20 MG TAB PO SCH (21:15)
[2022-09-03] MEDS ORDERED: diphenhydrAMINE 50MG CAP PO STA (21:59)
[2022-09-04] MEDS: VANCOMYCIN HCL 1,000 MG, VIAL MATE ADAPTER 1 EACH in D5W 250 ML IV SCH ×2 (00:47→09:43)
[2022-09-04] MEDS: metroNIDAZOLE 500 MG in IV 1 EA IV SCH (02:25)
[2022-09-04 03:39] VITALS: BP 120/59
[2022-09-04] MEDS: CEFEPIME HCL 2 GM in D5W MINI-BAG PLUS 50 ML IV SCH (03:53)
[2022-09-04 06:20] LABS: BASO % 0.3 % (0.0-1.0); EOS % 0.1 % (0.0-3.0); HEMATOCRIT 31.5 % (36.0-47.0); HEMOGLOBIN 10.2 g/dl (12.0-15.5); LYMPH # 1.6 10^3/uL (1.5-5.0); LYMPH % 22.4 % (24.0-44.0); MEAN CORPUSCULAR HEMOGLOBIN 31.7 pg (27.0-33.0); MEAN CORPUSCULAR HGB CONC 32.4 g/dl (32.0-36.5); MEAN CORPUSCULAR VOLUME 97.8 fl (80.0-96.0); MONO # 0.6 10^3/uL (0.0-0.8); MONO % 9.1 % (2.0-8.0); NEUTROPHILS # 4.7 10^3/uL (1.5-8.5); NEUTROPHILS % 67.7 % (36.0-66.0); PLATELET COUNT, AUTOMATED 219 10^3/uL (150-450); RED BLOOD COUNT 3.22 10^6/uL (4.00-5.40); WHITE BLOOD COUNT 6.9 10^3/uL (4.0-10.0)
[2022-09-04 06:49] LABS: BLOOD UREA NITROGEN 10 MG/DL (9-23); CALCIUM LEVEL 8.6 MG/DL (8.3-10.6); CARBON DIOXIDE LEVEL 26 MMOL/L (20-31); CHLORIDE LEVEL 108 MMOL/L (98-107); CREATININE FOR GFR 0.41 MG/DL (0.55-1.30); GLOMERULAR FILTRATION RATE > 60.0 (>45); GLUCOSE, FASTING 171 MG/DL (74-106); MAGNESIUM LEVEL 1.6 MG/DL (1.8-2.4); POTASSIUM SERUM 3.9 MMOL/L (3.5-5.1); SODIUM LEVEL 141 MMOL/L (136-145)
[2022-09-04] MEDS: HYDROmorphone 2 MG TAB PO PRN ×3 (06:56→18:13)
[2022-09-04 07:17] LABS: HEMOGLOBIN A1c 9.4 % (4.0-6.0)
[2022-09-04] MEDS: INSULIN LISPRO (NovoLOG) PER UNIT SC SCH ×7 (07:30→21:54)
[2022-09-04 07:51] VITALS: BP 114/65
[2022-09-04] MEDS: ONDANSETRON 4MG 2ML VIAL IV SCH ×2 (09:42→21:46)
[2022-09-04] MEDS: SIMETHICONE 80MG CHEW TAB PO SCH ×4 (09:42→21:52)
[2022-09-04] MEDS: DICYCLOMINE 10 MG CAP PO SCH ×4 (09:42→21:53)
[2022-09-04] MEDS: METOCLOPRAMIDE 10MG TAB PO SCH ×3 (09:42→17:12)
[2022-09-04] MEDS: VITAMIN D 1,000 INTERNATIONAL UNITS TABLET PO SCH (09:43)
[2022-09-04] MEDS: FAMOTIDINE 20 MG TAB PO SCH ×2 (09:43→21:53)
[2022-09-04] MEDS: ENOXAPARIN 40MG/0.4ML SYRINGE (J1650 PER 10MG) SC SCH (09:43)
[2022-09-04] MEDS: LACTULOSE 20GM/30ML SYRUP UDC PO SCH ×4 (09:43→21:54)
[2022-09-04] MEDS: SUCRALFATE 1 GM TAB PO SCH ×2 (09:43→21:52)
[2022-09-04] MEDS: predniSONE 20 MG TAB PO SCH (09:43)
[2022-09-04] MEDS: AMITRIPTYLINE 50 MG TAB PO SCH ×2 (09:43→21:51)
[2022-09-04] MEDS: LEVEMIR (INSULIN DETEMIR) 1 UNITS/0.01ML SC SCH (09:44)
[2022-09-04] MEDS: TOBRADEX OPHTH SUSP 2.5 ML OS SCH ×4 (09:45→21:56)
[2022-09-04] MEDS: POLYTRIM OPTH DROPS 10ML OS SCH ×4 (09:45→21:55)
[2022-09-04] MEDS: SODIUM CHLORIDE NASAL 0.65% SPRAY BTL (OCEAN) SCH (09:45)
[2022-09-04] MEDS: FLUTICASONE PROP 0.05% NASAL SPRAY 16 GM (FLONASE) NARES SCH (09:45)
[2022-09-04] MEDS: MUPIROCIN 2% OINT 22 GM TUBE TOP SCH ×3 (09:46→21:57)
[2022-09-04] MEDS: LACTIC ACID 12% LOTION 225 GM BTL TOP SCH (09:46)
[2022-09-04] MEDS: SODIUM CHLORIDE 0.9% INJ 10 ML SYR IV SCH (11:32)
[2022-09-04 12:39] VITALS: BP 120/56
[2022-09-04] MEDS: IPRATROPIUM 0.5MG/ALBUTEROL 2.5MG INH SOL UD 3ML (DUONEB) NEB PRN (14:37)
[2022-09-04 16:18] VITALS: BP 116/74
[2022-09-04] MEDS ORDERED: VANCOMYCIN HCL 750 MG, VIAL MATE ADAPTER 1 EACH in D5W 250 ML IV SCH (20:00)
[2022-09-04 20:19] VITALS: BP 126/68
[2022-09-04] MEDS: VANCOMYCIN HCL 750 MG, VIAL MATE ADAPTER 1 EACH in NS 250 ML IV SCH (20:53)
[2022-09-04] MEDS ORDERED: VANCOMYCIN HCL 500 MG in D5W MINI-BAG PLUS 100 ML IV SCH (21:00)
[2022-09-04] MEDS ORDERED: diphenhydrAMINE 50MG CAP PO ONE (21:05)
[2022-09-04] MEDS: ATORVASTATIN 20 MG TAB PO SCH (21:51)
[2022-09-04] MEDS: SENOKOT S TAB PO SCH (21:53)
[2022-09-04] MEDS: VANCOMYCIN HCL 500 MG, VIAL MATE ADAPTER 1 EACH in NS 100 ML IV SCH (22:46)
[2022-09-05] MEDS: HYDROmorphone 2 MG TAB PO PRN ×4 (00:25→21:10)
[2022-09-05] MEDS: SODIUM CHLORIDE 0.9% INJ 10 ML SYR IV PRN (05:04)
[2022-09-05 06:54] VITALS: BP 120/69
[2022-09-05 07:14] LABS: BLOOD UREA NITROGEN 14 MG/DL (9-23); CALCIUM LEVEL 8.8 MG/DL (8.3-10.6); CARBON DIOXIDE LEVEL 25 MMOL/L (20-31); CHLORIDE LEVEL 107 MMOL/L (98-107); CREATININE FOR GFR 0.47 MG/DL (0.55-1.30); GLOMERULAR FILTRATION RATE > 60.0 (>45); GLUCOSE, FASTING 139 MG/DL (74-106); MAGNESIUM LEVEL 1.6 MG/DL (1.8-2.4); POTASSIUM SERUM 3.9 MMOL/L (3.5-5.1); SODIUM LEVEL 140 MMOL/L (136-145)
[2022-09-05 07:45] LABS: BASO % 0.5 % (0.0-1.0); EOS # 0.1 10^3/uL (0.0-0.5); EOS % 0.7 % (0.0-3.0); HEMATOCRIT 33.6 % (36.0-47.0); HEMOGLOBIN 10.9 g/dl (12.0-15.5); LYMPH # 2.3 10^3/uL (1.5-5.0); LYMPH % 27.4 % (24.0-44.0); MEAN CORPUSCULAR HEMOGLOBIN 31.5 pg (27.0-33.0); MEAN CORPUSCULAR HGB CONC 32.4 g/dl (32.0-36.5); MEAN CORPUSCULAR VOLUME 97.1 fl (80.0-96.0); MONO # 0.7 10^3/uL (0.0-0.8); MONO % 8.6 % (2.0-8.0); NEUTROPHILS # 5.3 10^3/uL (1.5-8.5); NEUTROPHILS % 61.9 % (36.0-66.0); PLATELET COUNT, AUTOMATED 223 10^3/uL (150-450); RED BLOOD COUNT 3.46 10^6/uL (4.00-5.40); WHITE BLOOD COUNT 8.5 10^3/uL (4.0-10.0)
[2022-09-05] MEDS: LACTULOSE 20GM/30ML SYRUP UDC PO SCH ×4 (09:32→21:07)
[2022-09-05] MEDS: VANCOMYCIN HCL 750 MG, VIAL MATE ADAPTER 1 EACH in NS 250 ML IV SCH ×2 (09:32→21:13)
[2022-09-05] MEDS: SIMETHICONE 80MG CHEW TAB PO SCH ×4 (09:33→21:08)
[2022-09-05] MEDS: ENOXAPARIN 40MG/0.4ML SYRINGE (J1650 PER 10MG) SC SCH (09:33)
[2022-09-05] MEDS: ONDANSETRON 4MG 2ML VIAL IV SCH ×2 (09:33→21:11)
[2022-09-05] MEDS: SUCRALFATE 1 GM TAB PO SCH ×2 (09:33→21:07)
[2022-09-05] MEDS: VITAMIN D 1,000 INTERNATIONAL UNITS TABLET PO SCH (09:34)
[2022-09-05] MEDS: FAMOTIDINE 20 MG TAB PO SCH ×2 (09:34→21:09)
[2022-09-05] MEDS: AMITRIPTYLINE 50 MG TAB PO SCH ×2 (09:34→21:07)
[2022-09-05] MEDS: DICYCLOMINE 10 MG CAP PO SCH ×4 (09:34→21:09)
[2022-09-05] MEDS: INSULIN LISPRO (NovoLOG) PER UNIT SC SCH ×7 (09:35→21:12)
[2022-09-05] MEDS: SODIUM CHLORIDE 0.9% INJ 10 ML SYR IV SCH (09:36)
[2022-09-05] MEDS: LEVEMIR (INSULIN DETEMIR) 1 UNITS/0.01ML SC SCH (09:36)
[2022-09-05] MEDS: SODIUM CHLORIDE NASAL 0.65% SPRAY BTL (OCEAN) SCH (09:37)
[2022-09-05] MEDS: FLUTICASONE PROP 0.05% NASAL SPRAY 16 GM (FLONASE) NARES SCH (09:37)
[2022-09-05] MEDS: METOCLOPRAMIDE 10MG TAB PO SCH ×3 (09:37→18:12)
[2022-09-05] MEDS: TOBRADEX OPHTH SUSP 2.5 ML OS SCH ×4 (09:37→21:23)
[2022-09-05] MEDS: MUPIROCIN 2% OINT 22 GM TUBE TOP SCH ×3 (09:38→21:25)
[2022-09-05] MEDS: POLYTRIM OPTH DROPS 10ML OS SCH ×4 (09:38→21:24)
[2022-09-05] MEDS: LACTIC ACID 12% LOTION 225 GM BTL TOP SCH (09:39)
[2022-09-05] MEDS ORDERED: diphenhydrAMINE 25MG CAP PO ONE ×2 (10:20→21:50)
[2022-09-05] MEDS: VANCOMYCIN HCL 500 MG, VIAL MATE ADAPTER 1 EACH in NS 100 ML IV SCH ×2 (11:49→22:40)
[2022-09-05 20:00] VITALS: BP 130/69
[2022-09-05] MEDS: SENOKOT S TAB PO SCH (21:09)
[2022-09-05] MEDS: ATORVASTATIN 20 MG TAB PO SCH (21:10)
[2022-09-06 06:00] VITALS: BP 113/65
[2022-09-06] MEDS: SODIUM CHLORIDE 0.9% INJ 10 ML SYR IV SCH (07:28)
[2022-09-06 07:38] LABS: BASO # 0.1 10^3/uL (0.0-0.2); BASO % 0.6 % (0.0-1.0); EOS # 0.2 10^3/uL (0.0-0.5); EOS % 2.7 % (0.0-3.0); HEMATOCRIT 36.4 % (36.0-47.0); HEMOGLOBIN 11.4 g/dl (12.0-15.5); LYMPH # 1.7 10^3/uL (1.5-5.0); LYMPH % 22.1 % (24.0-44.0); MEAN CORPUSCULAR HEMOGLOBIN 31.1 pg (27.0-33.0); MEAN CORPUSCULAR HGB CONC 31.3 g/dl (32.0-36.5); MEAN CORPUSCULAR VOLUME 99.5 fl (80.0-96.0); MONO # 0.6 10^3/uL (0.0-0.8); MONO % 7.2 % (2.0-8.0); NEUTROPHILS # 5.2 10^3/uL (1.5-8.5); NEUTROPHILS % 66.1 % (36.0-66.0); PLATELET COUNT, AUTOMATED 241 10^3/uL (150-450); RED BLOOD COUNT 3.66 10^6/uL (4.00-5.40); WHITE BLOOD COUNT 7.9 10^3/uL (4.0-10.0)
[2022-09-06 08:42] LABS: ALBUMIN 2.7 G/DL (3.2-5.2); ALKALINE PHOSPHATASE 91 U/L (46-116); ALT/SGPT 37 U/L (7.0-40); AST/SGOT 54 U/L (<34); BILIRUBIN,TOTAL 0.2 MG/DL (0.3-1.2); BLOOD UREA NITROGEN 12 MG/DL (9-23); CALCIUM LEVEL 8.7 MG/DL (8.3-10.6); CARBON DIOXIDE LEVEL 22 MMOL/L (20-31); CHLORIDE LEVEL 108 MMOL/L (98-107); CREATININE FOR GFR 0.46 MG/DL (0.55-1.30); GLOMERULAR FILTRATION RATE > 60.0 (>45); GLUCOSE, FASTING 116 MG/DL (74-106); POTASSIUM SERUM 4.1 MMOL/L (3.5-5.1); SODIUM LEVEL 140 MMOL/L (136-145); TOTAL PROTEIN 6.5 G/DL (5.7-8.2)
[2022-09-06] MEDS: SODIUM CHLORIDE NASAL 0.65% SPRAY BTL (OCEAN) SCH (08:51)
[2022-09-06] MEDS: POLYTRIM OPTH DROPS 10ML OS SCH ×2 (08:51→12:31)
[2022-09-06] MEDS: TOBRADEX OPHTH SUSP 2.5 ML OS SCH ×2 (08:51→12:31)
[2022-09-06] MEDS: FLUTICASONE PROP 0.05% NASAL SPRAY 16 GM (FLONASE) NARES SCH (08:51)
[2022-09-06] MEDS: SIMETHICONE 80MG CHEW TAB PO SCH ×2 (08:52→12:10)
[2022-09-06] MEDS: MUPIROCIN 2% OINT 22 GM TUBE TOP SCH (08:52)
[2022-09-06] MEDS: LACTIC ACID 12% LOTION 225 GM BTL TOP SCH (08:52)
[2022-09-06] MEDS: SUCRALFATE 1 GM TAB PO SCH (08:52)
[2022-09-06] MEDS: LACTULOSE 20GM/30ML SYRUP UDC PO SCH ×2 (08:52→12:10)
[2022-09-06] MEDS: METOCLOPRAMIDE 10MG TAB PO SCH ×2 (08:52→12:10)
[2022-09-06] MEDS: ENOXAPARIN 40MG/0.4ML SYRINGE (J1650 PER 10MG) SC SCH (08:53)
[2022-09-06] MEDS: VITAMIN D 1,000 INTERNATIONAL UNITS TABLET PO SCH (08:53)
[2022-09-06] MEDS: FAMOTIDINE 20 MG TAB PO SCH (08:53)
[2022-09-06] MEDS: AMITRIPTYLINE 50 MG TAB PO SCH (08:53)
[2022-09-06] MEDS: DICYCLOMINE 10 MG CAP PO SCH ×2 (08:53→12:42)
[2022-09-06] MEDS: INSULIN LISPRO (NovoLOG) PER UNIT SC SCH ×4 (08:54→12:11)
[2022-09-06] MEDS: LEVEMIR (INSULIN DETEMIR) 1 UNITS/0.01ML SC SCH (08:55)
[2022-09-06] MEDS: HYDROmorphone 2 MG TAB PO PRN ×2 (09:01→12:42)
[2022-09-06 09:35] LABS: BLOOD UREA NITROGEN 13 MG/DL (9-23); CALCIUM LEVEL 9.3 MG/DL (8.3-10.6); CARBON DIOXIDE LEVEL 25 MMOL/L (20-31); CHLORIDE LEVEL 107 MMOL/L (98-107); CREATININE FOR GFR 0.46 MG/DL (0.55-1.30); GLOMERULAR FILTRATION RATE > 60.0 (>45); GLUCOSE, FASTING 116 MG/DL (74-106); MAGNESIUM LEVEL 1.5 MG/DL (1.8-2.4); POTASSIUM SERUM 4.1 MMOL/L (3.5-5.1); SODIUM LEVEL 141 MMOL/L (136-145)
[2022-09-06] MEDS ORDERED: MAGN400T33 PO (11:20)
[2022-09-06] MEDS ORDERED: MAGNESIUM OXIDE 400MG TAB (MAG-OX) PO ONE (11:25)
[2022-09-06] MEDS: ONDANSETRON 4MG 2ML VIAL IV SCH (12:04)
[2022-09-06] MEDS ORDERED: VANCOMYCIN HCL 1,000 MG, VIAL MATE ADAPTER 1 EACH in NS 250 ML IV SCH (20:00)
[2022-09-06] MEDS ORDERED: VANCOMYCIN HCL 1,000 MG, VIAL MATE ADAPTER 1 EACH in D5W 250 ML IV SCH (20:00)
== END 2022-09-06 12:45 | disposition home or self-care (01) | DRG 344 ==
LOC: M ED 09:05 → M ED INP 13:14 → EEVIPCON 13:14 → M PCU 14:25 → M MS5PR 09-04 16:06
PROVIDERS: ADMIT Internal Medicine; ATTEND Internal Medicine
PROC: 0S9B3ZX Drainage of Left Hip Joint, Percutaneous Approach, Diagnostic (ICD-10-PCS; principal; 2022-08-30)
PROC: 0R9 Upper Joints, Drainage (ICD-10-PCS; 2022-09-02)
DX: E11.69 Type 2 diabetes mellitus with other specified complication (principal); E11.628 Type 2 diabetes mellitus with other skin complications; M86.9 Osteomyelitis, unspecified; E11.65 Type 2 diabetes mellitus with hyperglycemia; E83.42 Hypomagnesemia; Z86.73 Personal history of transient ischemic attack (TIA), and cerebral infarction without residual deficits; E78.5 Hyperlipidemia, unspecified; Z86.711 Personal history of pulmonary embolism; Z86.718 Personal history of other venous thrombosis and embolism; J45.909 Unspecified asthma, uncomplicated; M25.552 Pain in left hip; M25.562 Pain in left knee; L08.9 Local infection of the skin and subcutaneous tissue, unspecified; L02.512 Cutaneous abscess of left hand; G89.4 Chronic pain syndrome; K21.9 Gastro-esophageal reflux disease without esophagitis; Z90.79 Acquired absence of other genital organ(s); Z90.49 Acquired absence of other specified parts of digestive tract; Z79.4 Long term (current) use of insulin; Z79.899 Other long term (current) drug therapy; Z88.0 Allergy status to penicillin; Z88.1 Allergy status to other antibiotic agents; Z88.2 Allergy status to sulfonamides; Z88.3 Allergy status to other anti-infective agents; Z88.5 Allergy status to narcotic agent; Z88.6 Allergy status to analgesic agent; Z88.8 Allergy status to other drugs, medicaments and biological substances; Z91.040 Latex allergy status; Z91.041 Radiographic dye allergy status; Z91.018 Allergy to other foods; Z91.02 Food additives allergy status; Z20.822 Contact with and (suspected) exposure to COVID-19; T38.0X5A Adverse effect of glucocorticoids and synthetic analogues, initial encounter; W01.0XXA Fall on same level from slipping, tripping and stumbling without subsequent striking against object, initial encounter; Y92.009 Unspecified place in unspecified non-institutional (private) residence as the place of occurrence of the external cause

== ENCOUNTER 2022-09-06 13:02 | Outpatient (CLI) | payer OTHER ==
[~2022-09-06] VITALS: Ht 170.2 cm; Wt 80.6 kg
[~2022-09-06 13:02] MED LIST changes: +EQL0.65S; +IPRA0.00 NEB; +MAGN400T33 PO; +POLY2.5S OS; +TOBRSUS39 OS
[2022-09-06] MEDS ORDERED: DALBAVANCIN 1,500 MG in D5W 250 ML IV ONE (14:00)
[2022-09-06 14:28] VITALS: BP 111/57
[2022-09-06 15:09] VITALS: BP 133/66
== END 2022-09-06 15:30 | disposition home or self-care (01) ==
LOC: M OPCLI5PR 13:02 → M MS5PR 13:05 → M OPCLI5PR 15:30
PROVIDERS: ATTEND Internal Medicine
DX: M86.9 Osteomyelitis, unspecified (principal); B95.62 Methicillin resistant Staphylococcus aureus infection as the cause of diseases classified elsewhere
CPT/HCPCS: 96365; J0875

== ENCOUNTER 2022-09-17 09:16 | Emergency (ER) | payer OTHER ==
[~2022-09-17] VITALS: Ht 170.2 cm; Wt 73.6 kg
[2022-09-17 10:45] VITALS: BP 126/72; O2SAT 93
[2022-09-17] MEDS ORDERED: PRED20TA PO (10:48)
[2022-09-17 10:58] VITALS: TEMP 97.3
== END 2022-09-17 11:02 | disposition home or self-care (01) ==
LOC: EDBD 09:16 → M ED 09:16
DX: J45.901 Unspecified asthma with (acute) exacerbation (principal); Z79.899 Other long term (current) drug therapy; Z91.041 Radiographic dye allergy status; Z88.3 Allergy status to other anti-infective agents; Z88.0 Allergy status to penicillin; Z88.2 Allergy status to sulfonamides; Z91.89 Other specified personal risk factors, not elsewhere classified; Z88.8 Allergy status to other drugs, medicaments and biological substances; Z91.018 Allergy to other foods; Z91.040 Latex allergy status; Z88.1 Allergy status to other antibiotic agents; Z91.02 Food additives allergy status

== ENCOUNTER 2022-09-18 07:40 | Outpatient (CLI) | payer OTHER ==
[2022-09-18 08:17] VITALS: BP 119/62; O2SAT 96
[2022-09-18] MEDS ORDERED: SODIUM CHLORIDE 0.9% INJ 10 ML SYR IV SCH (09:00)
== END 2022-09-18 08:00 | disposition home or self-care (01) ==
LOC: M INFU 07:40
PROVIDERS: ATTEND Family Medicine
DX: E11.65 Type 2 diabetes mellitus with hyperglycemia (principal); E83.42 Hypomagnesemia; Z88.3 Allergy status to other anti-infective agents; Z88.0 Allergy status to penicillin; Z88.2 Allergy status to sulfonamides; Z88.8 Allergy status to other drugs, medicaments and biological substances; Z88.1 Allergy status to other antibiotic agents; Z88.5 Allergy status to narcotic agent

== ENCOUNTER 2022-09-19 08:42 | Outpatient (CLI) | payer OTHER ==
[~2022-09-19] VITALS: Ht 170.2 cm; Wt 72.7 kg
[~2022-09-19 08:42] MED LIST changes: +MUPI2OI NARES; -MUPI2OI TOP; +SODIUM CHLORIDE 0.9% INJ 10 ML SYR IV PRN
[2022-09-19 08:45] VITALS: BP 137/72; O2SAT 96
[2022-09-19] MEDS ORDERED: SODIUM CHLORIDE 0.9% INJ 10 ML SYR IV SCH (09:00)
[2022-09-19] MEDS: MAG SULF 1GM/100ML (MAG RUN) IV SCH ×4 (09:00→09:59)
[2022-09-19 09:55] VITALS: BP 117/65; O2SAT 97
[2022-09-20] MEDS ORDERED: PRED10TA2 PO (13:46)
== END 2022-09-19 11:20 | disposition home or self-care (01) ==
LOC: EDBD → M INFU 08:42
PROVIDERS: ATTEND Family Medicine
DX: E83.42 Hypomagnesemia (principal); E11.65 Type 2 diabetes mellitus with hyperglycemia; Z88.2 Allergy status to sulfonamides; Z88.8 Allergy status to other drugs, medicaments and biological substances; Z88.0 Allergy status to penicillin; Z88.1 Allergy status to other antibiotic agents; Z88.5 Allergy status to narcotic agent
CPT/HCPCS: 96365; 96366; J3475

== ENCOUNTER 2022-09-20 09:16 | Emergency (ER) | payer OTHER ==
[~2022-09-20] VITALS: Ht 170.2 cm; Wt 72.7 kg
[~2022-09-20 09:16] MED LIST changes: -MUPI2OI NARES; +MUPI2OI TOP; -SODIUM CHLORIDE 0.9% INJ 10 ML SYR IV PRN
[2022-09-20] MEDS ORDERED: IPRATROPIUM 0.5MG/ALBUTEROL 2.5MG INH SOL UD 3ML (DUONEB) NEB ONE (12:40)
[2022-09-20] MEDS ORDERED: PRED10TA2 PO (13:46)
[2022-09-20 13:56] VITALS: BP 124/76; TEMP 97.7; O2SAT 98
[2022-09-21] MEDS ORDERED: DOXY-444 PO (17:34)
== END 2022-09-20 13:58 | disposition home or self-care (01) ==
LOC: M ED 09:16
DX: J45.901 Unspecified asthma with (acute) exacerbation (principal); E11.9 Type 2 diabetes mellitus without complications; Z79.4 Long term (current) use of insulin; Z79.899 Other long term (current) drug therapy; Z91.041 Radiographic dye allergy status; Z91.018 Allergy to other foods; Z88.3 Allergy status to other anti-infective agents; Z88.0 Allergy status to penicillin; Z88.2 Allergy status to sulfonamides; Z91.89 Other specified personal risk factors, not elsewhere classified; Z88.8 Allergy status to other drugs, medicaments and biological substances; Z91.040 Latex allergy status; Z88.1 Allergy status to other antibiotic agents; Z88.5 Allergy status to narcotic agent

== ENCOUNTER 2022-09-21 14:55 | Emergency (ER) | payer OTHER ==
[~2022-09-21] VITALS: Ht 170.2 cm; Wt 72.7 kg
[~2022-09-21 14:55] MED LIST changes: +PRED10TA2 PO
[2022-09-21] MEDS ORDERED: IPRATROPIUM 0.5MG/ALBUTEROL 2.5MG INH SOL UD 3ML (DUONEB) NEB ONE (15:45)
[2022-09-21] MEDS ORDERED: DOXY-444 PO (17:34)
[2022-09-21 18:02] VITALS: BP 141/106; TEMP 98.4; O2SAT 95
== END 2022-09-21 18:10 | disposition home or self-care (01) ==
LOC: EDBD 14:55 → M ED 14:55
DX: J45.901 Unspecified asthma with (acute) exacerbation (principal); E11.9 Type 2 diabetes mellitus without complications; Z86.711 Personal history of pulmonary embolism; Z86.718 Personal history of other venous thrombosis and embolism; Z86.73 Personal history of transient ischemic attack (TIA), and cerebral infarction without residual deficits; E78.5 Hyperlipidemia, unspecified; K21.9 Gastro-esophageal reflux disease without esophagitis; Z79.4 Long term (current) use of insulin; Z79.899 Other long term (current) drug therapy; Z91.041 Radiographic dye allergy status; Z91.018 Allergy to other foods; Z88.3 Allergy status to other anti-infective agents; Z88.0 Allergy status to penicillin; Z88.2 Allergy status to sulfonamides; Z91.89 Other specified personal risk factors, not elsewhere classified; Z88.8 Allergy status to other drugs, medicaments and biological substances; Z91.040 Latex allergy status; Z88.1 Allergy status to other antibiotic agents; Z88.5 Allergy status to narcotic agent; Z88.4 Allergy status to anesthetic agent; Z91.02 Food additives allergy status

== ENCOUNTER 2022-09-25 08:09 | Outpatient (CLI) | payer OTHER ==
[~2022-09-25] VITALS: Ht 167.6 cm; Wt 73.0 kg
[~2022-09-25 08:09] MED LIST changes: +DOXY-444 PO; +MUPI2OI NARES; -MUPI2OI TOP; +SODIUM CHLORIDE 0.9% INJ 10 ML SYR IV PRN
[2022-09-25 08:11] VITALS: BP 117/71; O2SAT 96
[2022-09-25] MEDS ORDERED: SODIUM CHLORIDE 0.9% INJ 10 ML SYR IV SCH (09:00)
== END 2022-09-25 08:40 | disposition home or self-care (01) ==
LOC: M INFU 08:09
PROVIDERS: ATTEND Family Medicine
DX: E83.42 Hypomagnesemia (principal); Z88.3 Allergy status to other anti-infective agents; Z88.0 Allergy status to penicillin; Z88.2 Allergy status to sulfonamides; Z88.8 Allergy status to other drugs, medicaments and biological substances; Z88.1 Allergy status to other antibiotic agents; Z88.5 Allergy status to narcotic agent; Z88.4 Allergy status to anesthetic agent

== ENCOUNTER → 2022-09-26 | Outpatient (CLI) | payer OTHER ==
[~2022-09-26] MED LIST changes: +MAGN400T35 PO; -SODIUM CHLORIDE 0.9% INJ 10 ML SYR IV PRN
== END ==
LOC: M INFU 07:42
PROVIDERS: ATTEND Family Medicine
DX: E83.42 Hypomagnesemia (principal); Z53.9 Procedure and treatment not carried out, unspecified reason

== ENCOUNTER 2022-09-27 07:18 | Outpatient (CLI) | payer OTHER ==
[~2022-09-27 07:18] MED LIST changes: +DICY-61 PO; -DICY10CA13 PO; -MAGN400T35 PO; +SODIUM CHLORIDE 0.9% INJ 10 ML SYR IV PRN
[2022-09-27 07:25] VITALS: BP 100/66; O2SAT 98
[2022-09-27] MEDS: MAG SULF 1GM/100ML (MAG RUN) IV SCH ×4 (07:45→08:33)
[2022-09-27] MEDS ORDERED: SODIUM CHLORIDE 0.9% INJ 10 ML SYR IV SCH (09:00)
[2022-09-27 09:45] VITALS: BP 123/66; O2SAT 96
== END 2022-09-27 09:45 ==
LOC: M INFU 07:18
PROVIDERS: ATTEND Family Medicine
DX: E83.42 Hypomagnesemia (principal); Z88.0 Allergy status to penicillin; Z88.2 Allergy status to sulfonamides; Z88.8 Allergy status to other drugs, medicaments and biological substances; Z88.1 Allergy status to other antibiotic agents; Z88.5 Allergy status to narcotic agent; Z88.3 Allergy status to other anti-infective agents; Z88.4 Allergy status to anesthetic agent
CPT/HCPCS: 36591; 83735; 96365; 96366; J3475

== ENCOUNTER → 2022-09-27 | Outpatient (REF) | payer OTHER | LOC: M SFHCPLAZ 14:46 | PROVIDERS: ATTEND Family Medicine | DX: Z53.9 Procedure and treatment not carried out, unspecified reason (principal) ==

== ENCOUNTER 2022-09-28 19:03 | Emergency (ER) | payer OTHER ==
[~2022-09-28] VITALS: Ht 170.2 cm; Wt 72.7 kg
[~2022-09-28 19:03] MED LIST changes: -DICY-61 PO; +DICY10CA13 PO; -SODIUM CHLORIDE 0.9% INJ 10 ML SYR IV PRN
[2022-09-28] MEDS ORDERED: IPRATROPIUM 0.5MG/ALBUTEROL 2.5MG INH SOL UD 3ML (DUONEB) NEB ONE (21:00)
[2022-09-28] MEDS ORDERED: methylPREDNISolone 40MG 1ML VIAL IV ONE (21:45)
[2022-09-28] MEDS ORDERED: ALBUTEROL SULFATE 2.5MG/0.5ML INH NEB SOLN NEB ONE (21:50)
[2022-09-28 22:16] LABS: BASO % 0.4 % (0.0-1.0); EOS # 0.1 10^3/uL (0.0-0.5); EOS % 1.4 % (0.0-3.0); HEMATOCRIT 36.5 % (36.0-47.0); HEMOGLOBIN 11.9 g/dl (12.0-15.5); LYMPH # 1.4 10^3/uL (1.5-5.0); LYMPH % 17.7 % (24.0-44.0); MEAN CORPUSCULAR HEMOGLOBIN 32.2 pg (27.0-33.0); MEAN CORPUSCULAR HGB CONC 32.6 g/dl (32.0-36.5); MEAN CORPUSCULAR VOLUME 98.6 fl (80.0-96.0); MONO # 0.6 10^3/uL (0.0-0.8); MONO % 7.9 % (2.0-8.0); NEUTROPHILS # 5.5 10^3/uL (1.5-8.5); NEUTROPHILS % 71.8 % (36.0-66.0); PLATELET COUNT, AUTOMATED 165 10^3/uL (150-450); WHITE BLOOD COUNT 7.7 10^3/uL (4.0-10.0)
[2022-09-29] MEDS ORDERED: ALBUTEROL SULFATE 2.5MG/0.5ML INH NEB SOLN NEB ONE (00:20)
[2022-09-29 00:22] VITALS: O2SAT 95
[2022-09-29] MEDS ORDERED: PRED20TA PO (00:49)
[2022-09-29] MEDS ORDERED: SODIUM CHLORIDE 0.9% INJ 10 ML SYR IV STA (00:53)
[2022-09-29 01:09] VITALS: BP 141/74; TEMP 99; O2SAT 95
== END 2022-09-29 01:17 | disposition home or self-care (01) ==
LOC: M ED 19:03 → EDBD 19:03 → M ED 09-29 01:17
DX: J45.998 Other asthma (principal); Z79.4 Long term (current) use of insulin; Z79.899 Other long term (current) drug therapy; Z91.041 Radiographic dye allergy status; Z91.018 Allergy to other foods; Z88.3 Allergy status to other anti-infective agents; Z88.2 Allergy status to sulfonamides; Z91.89 Other specified personal risk factors, not elsewhere classified; Z88.8 Allergy status to other drugs, medicaments and biological substances; Z88.4 Allergy status to anesthetic agent; Z91.040 Latex allergy status; Z88.1 Allergy status to other antibiotic agents
CPT/HCPCS: 71045; 80047; 85025; 87486; 87581; 87633; 87798; 94640; 96374; 96375; 99285; J2920

== ENCOUNTER 2022-10-01 11:56 | Inpatient (IN) | payer OTHER ==
[~2022-10-01] VITALS: Ht 170.2 cm; Wt 78.5 kg
[2022-10-01] MEDS ORDERED: HYDROMORPHONE HCL 0.5 MG/ 0.5 ML SYRINGE IV PRN (13:20)
[2022-10-01 14:01] LABS: BASO % 0.2 % (0.0-1.0); HEMOGLOBIN 13.3 g/dl (12.0-15.5); LYMPH # 0.6 10^3/uL (1.5-5.0); MEAN CORPUSCULAR HEMOGLOBIN 31.4 pg (27.0-33.0); MEAN CORPUSCULAR HGB CONC 31.7 g/dl (32.0-36.5); MEAN CORPUSCULAR VOLUME 99.1 fl (80.0-96.0); MONO # 0.2 10^3/uL (0.0-0.8); MONO % 1.9 % (2.0-8.0); NEUTROPHILS # 7.6 10^3/uL (1.5-8.5); NEUTROPHILS % 90.4 % (36.0-66.0); PLATELET COUNT, AUTOMATED 175 10^3/uL (150-450); RED BLOOD COUNT 4.24 10^6/uL (4.00-5.40); WHITE BLOOD COUNT 8.4 10^3/uL (4.0-10.0)
[2022-10-01 14:10] LABS: INR 0.88; PROTHROMBIN TIME 12.1 SECONDS (12.5-14.5)
[2022-10-01 14:11] LABS: PARTIAL THROMBOPLASTIN TIME 21.9 SECONDS (24.8-34.2)
[2022-10-01 14:27] LABS: CK-MB VALUE MASS 5.6 NG/ML (<3.6)
[2022-10-01 14:28] LABS: MB/CK RELATIVE INDEX 8.61 (< OR =4)
[2022-10-01 14:28] LABS: LIPASE 22 U/L (12-53)
[2022-10-01 14:30] LABS: ALBUMIN 3.7 G/DL (3.2-5.2); ALKALINE PHOSPHATASE 107 U/L (46-116); ALT/SGPT 46 U/L (7.0-40); AST/SGOT 51 U/L (<34); BILIRUBIN,DIRECT 0.1 MG/DL (<0.4); BILIRUBIN,TOTAL 0.4 MG/DL (0.3-1.2); BLOOD UREA NITROGEN 20 MG/DL (9-23); CALCIUM LEVEL 10.5 MG/DL (8.3-10.6); CARBON DIOXIDE LEVEL 29 MMOL/L (20-31); CHLORIDE LEVEL 100 MMOL/L (98-107); CREATININE FOR GFR 0.49 MG/DL (0.55-1.30); GLOMERULAR FILTRATION RATE > 60.0 (>45); GLUCOSE, FASTING 259 MG/DL (74-106); POTASSIUM SERUM 4.6 MMOL/L (3.5-5.1); SODIUM LEVEL 138 MMOL/L (136-145); TOTAL PROTEIN 7.7 G/DL (5.7-8.2)
[2022-10-01 14:52] LABS: CK-MB VALUE MASS 5.5 NG/ML (<3.6)
[2022-10-01 14:53] LABS: MB/CK RELATIVE INDEX 8.46 (< OR =4)
[2022-10-01 15:06] LABS: RSV AMPLIFICATION NEGATIVE (NEGATIVE)
[2022-10-01] MEDS ORDERED: ONDANSETRON 4MG 2ML VIAL IV ONE (16:40)
[2022-10-01] MEDS ORDERED: NS 2,180 ML in IV 1 EA IV ONE (17:35)
[2022-10-01] MEDS: INSULIN LISPRO (NovoLOG) PER UNIT SC SCH (18:36)
[2022-10-01] MEDS: HYDROMORPHONE HCL 0.5 MG/ 0.5 ML SYRINGE IV PRN ×2 (19:31→22:33)
[2022-10-01 19:58] VITALS: BP 136/66; TEMP 97.8; O2SAT 97
[2022-10-01] MEDS ORDERED: MAG SULF 1GM/100ML (MAG RUN) 1 GM in IV 1 EA IV ONE (20:10)
[2022-10-01] MEDS: NS 1,000 ML IV SCH (20:43)
[2022-10-01] MEDS: ONDANSETRON 4MG 2ML VIAL IV PRN (22:32)
[2022-10-01] MEDS ORDERED: IPRA0.00 INH (22:37)
[2022-10-01] MEDS ORDERED: PRED20TA PO (22:37)
[2022-10-01] MEDS ORDERED: MAGN400T35 PO (22:37)
[2022-10-01] MEDS ORDERED: HOME MED LIST COMPLETE! XX SCH (22:40)
[2022-10-02] MEDS: INSULIN LISPRO (NovoLOG) PER UNIT SC SCH ×4 (00:38→18:12)
[2022-10-02] MEDS ORDERED: IPRATROPIUM 0.5MG/ALBUTEROL 2.5MG INH SOL UD 3ML (DUONEB) INH PRN (00:45)
[2022-10-02] MEDS ORDERED: SODIUM CHLORIDE NASAL 0.65% SPRAY BTL (OCEAN) PRN (00:45)
[2022-10-02] MEDS ORDERED: ALBUTEROL 90 MCG/ACT 8GM HFA INHALER INH PRN (00:45)
[2022-10-02] MEDS: HYDROMORPHONE HCL 0.5 MG/ 0.5 ML SYRINGE IV PRN ×7 (01:47→21:24)
[2022-10-02] MEDS: ONDANSETRON 4MG 2ML VIAL IV PRN ×3 (03:42→21:24)
[2022-10-02 06:21] LABS: HEMATOCRIT 42.1 % (36.0-47.0); HEMOGLOBIN 13.3 g/dl (12.0-15.5); MEAN CORPUSCULAR HEMOGLOBIN 30.9 pg (27.0-33.0); MEAN CORPUSCULAR HGB CONC 31.6 g/dl (32.0-36.5); MEAN CORPUSCULAR VOLUME 97.7 fl (80.0-96.0); PLATELET COUNT, AUTOMATED 158 10^3/uL (150-450); RED BLOOD COUNT 4.31 10^6/uL (4.00-5.40); WHITE BLOOD COUNT 8.3 10^3/uL (4.0-10.0)
[2022-10-02 06:44] LABS: ALBUMIN 2.9 G/DL (3.2-5.2); ALKALINE PHOSPHATASE 91 U/L (46-116); ALT/SGPT 32 U/L (7.0-40); AST/SGOT 30 U/L (<34); BILIRUBIN,TOTAL 0.5 MG/DL (0.3-1.2); BLOOD UREA NITROGEN 15 MG/DL (9-23); CARBON DIOXIDE LEVEL 26 MMOL/L (20-31); CHLORIDE LEVEL 107 MMOL/L (98-107); GLOMERULAR FILTRATION RATE > 60.0 (>45); GLUCOSE, FASTING 191 MG/DL (74-106); MAGNESIUM LEVEL 1.4 MG/DL (1.8-2.4); POTASSIUM SERUM 3.5 MMOL/L (3.5-5.1); SODIUM LEVEL 139 MMOL/L (136-145); TOTAL PROTEIN 6.3 G/DL (5.7-8.2)
[2022-10-02] MEDS: ENOXAPARIN 40MG/0.4ML SYRINGE (J1650 PER 10MG) SC SCH (08:04)
[2022-10-02] MEDS: PANTOPRAZOLE 40MG VIAL IV SCH (08:04)
[2022-10-02] MEDS: AMITRIPTYLINE 50 MG TAB PO SCH ×2 (08:05→21:23)
[2022-10-02] MEDS: NS 1,000 ML IV SCH ×2 (08:06→21:24)
[2022-10-02] MEDS ORDERED: LEVEMIR (INSULIN DETEMIR) 1 UNITS/0.01ML SC SCH (09:00)
[2022-10-02 14:06] VITALS: BP 128/72; TEMP 97.7; O2SAT 95
[2022-10-02 14:45] VITALS: BP 144/80; TEMP 98.1; O2SAT 93
[2022-10-02] MEDS: MAG SULF 1GM/100ML (MAG RUN) 1 GM in IV 1 EA IV SCH ×3 (16:33→18:12)
[2022-10-02 20:00] VITALS: BP 135/73; TEMP 97.9; O2SAT 95
[2022-10-03] MEDS: INSULIN LISPRO (NovoLOG) PER UNIT SC SCH ×5 (00:05→19:46)
[2022-10-03 06:00] VITALS: BP 136/73; TEMP 97.9; O2SAT 94
[2022-10-03 07:37] LABS: BASO % 0.3 % (0.0-1.0); EOS % 0.3 % (0.0-3.0); HEMATOCRIT 37.5 % (36.0-47.0); HEMOGLOBIN 12.1 g/dl (12.0-15.5); LYMPH # 0.7 10^3/uL (1.5-5.0); LYMPH % 12.9 % (24.0-44.0); MEAN CORPUSCULAR HEMOGLOBIN 31.4 pg (27.0-33.0); MEAN CORPUSCULAR HGB CONC 32.3 g/dl (32.0-36.5); MEAN CORPUSCULAR VOLUME 97.4 fl (80.0-96.0); MONO # 0.6 10^3/uL (0.0-0.8); MONO % 9.9 % (2.0-8.0); NEUTROPHILS # 4.4 10^3/uL (1.5-8.5); NEUTROPHILS % 76.3 % (36.0-66.0); PLATELET COUNT, AUTOMATED 155 10^3/uL (150-450); RED BLOOD COUNT 3.85 10^6/uL (4.00-5.40); WHITE BLOOD COUNT 5.7 10^3/uL (4.0-10.0)
[2022-10-03 07:56] LABS: BLOOD UREA NITROGEN 18 MG/DL (9-23); CALCIUM LEVEL 9.4 MG/DL (8.3-10.6); CARBON DIOXIDE LEVEL 28 MMOL/L (20-31); CHLORIDE LEVEL 105 MMOL/L (98-107); CREATININE FOR GFR 0.47 MG/DL (0.55-1.30); GLOMERULAR FILTRATION RATE > 60.0 (>45); GLUCOSE, FASTING 138 MG/DL (74-106); MAGNESIUM LEVEL 1.7 MG/DL (1.8-2.4); POTASSIUM SERUM 3.3 MMOL/L (3.5-5.1); SODIUM LEVEL 139 MMOL/L (136-145)
[2022-10-03] MEDS: ENOXAPARIN 40MG/0.4ML SYRINGE (J1650 PER 10MG) SC SCH (08:33)
[2022-10-03] MEDS: PANTOPRAZOLE 40MG VIAL IV SCH (08:33)
[2022-10-03] MEDS: AMITRIPTYLINE 50 MG TAB PO SCH ×2 (08:33→19:45)
[2022-10-03] MEDS: HYDROMORPHONE HCL 0.5 MG/ 0.5 ML SYRINGE IV PRN ×5 (08:34→23:29)
[2022-10-03] MEDS: NS 1,000 ML IV SCH ×2 (11:37→23:29)
[2022-10-03] MEDS: KCL 10MEQ/100ML SWI (KRUN) 10 MEQ in IV 1 EA IV SCH ×4 (12:46→15:56)
[2022-10-03] MEDS: METOCLOPRAMIDE INJ 10MG/2ML VIAL IV SCH ×2 (12:46→19:45)
[2022-10-03] MEDS: MAG SULF 1GM/100ML (MAG RUN) 1 GM in IV 1 EA IV SCH ×2 (12:46→13:52)
[2022-10-03 14:00] VITALS: BP 98/58; TEMP 97.7; O2SAT 95
[2022-10-03] MEDS ORDERED: SODIUM CHLORIDE 0.9% INJ 10 ML SYR IV PRN (15:10)
[2022-10-03 17:00] VITALS: BP 110/58; O2SAT 95
[2022-10-03] MEDS: SIMETHICONE 80MG CHEW TAB PO PRN (19:23)
[2022-10-03] MEDS: LEVEMIR (INSULIN DETEMIR) 1 UNITS/0.01ML SC SCH (19:45)
[2022-10-03 21:00] VITALS: BP 124/63; TEMP 97.6; O2SAT 96
[2022-10-04] MEDS: HYDROMORPHONE HCL 0.5 MG/ 0.5 ML SYRINGE IV PRN ×7 (03:19→21:51)
[2022-10-04] MEDS: METOCLOPRAMIDE INJ 10MG/2ML VIAL IV SCH ×3 (03:19→20:00)
[2022-10-04 04:32] LABS: BASO % 0.5 % (0.0-1.0); EOS # 0.1 10^3/uL (0.0-0.5); EOS % 2.4 % (0.0-3.0); HEMATOCRIT 34.2 % (36.0-47.0); HEMOGLOBIN 10.8 g/dl (12.0-15.5); LYMPH # 0.9 10^3/uL (1.5-5.0); LYMPH % 22.1 % (24.0-44.0); MEAN CORPUSCULAR HEMOGLOBIN 31.6 pg (27.0-33.0); MEAN CORPUSCULAR HGB CONC 31.6 g/dl (32.0-36.5); MONO # 0.5 10^3/uL (0.0-0.8); NEUTROPHILS # 2.6 10^3/uL (1.5-8.5); NEUTROPHILS % 62.8 % (36.0-66.0); PLATELET COUNT, AUTOMATED 128 10^3/uL (150-450); RED BLOOD COUNT 3.42 10^6/uL (4.00-5.40); WHITE BLOOD COUNT 4.2 10^3/uL (4.0-10.0)
[2022-10-04 04:46] LABS: BLOOD UREA NITROGEN 10 MG/DL (9-23); CALCIUM LEVEL 7.8 MG/DL (8.3-10.6); CARBON DIOXIDE LEVEL 26 MMOL/L (20-31); CHLORIDE LEVEL 105 MMOL/L (98-107); GLOMERULAR FILTRATION RATE > 60.0 (>45); GLUCOSE, FASTING 141 MG/DL (74-106); POTASSIUM SERUM 3.5 MMOL/L (3.5-5.1); SODIUM LEVEL 137 MMOL/L (136-145)
[2022-10-04 05:30] VITALS: BP 116/61; TEMP 97.7; O2SAT 93
[2022-10-04] MEDS ORDERED: MAG SULF 1GM/100ML (MAG RUN) 1 GM in IV 1 EA IV ONE (05:45)
[2022-10-04] MEDS ORDERED: POTASSIUM CHLORIDE 10MEQ SR TABLET PO ONE (07:35)
[2022-10-04] MEDS: SIMETHICONE 80MG CHEW TAB PO PRN ×2 (07:42→15:50)
[2022-10-04] MEDS: ONDANSETRON 4MG 2ML VIAL IV PRN ×2 (07:42→18:51)
[2022-10-04] MEDS: PANTOPRAZOLE 40MG VIAL IV SCH (08:40)
[2022-10-04] MEDS: ENOXAPARIN 40MG/0.4ML SYRINGE (J1650 PER 10MG) SC SCH (08:40)
[2022-10-04] MEDS: AMITRIPTYLINE 50 MG TAB PO SCH ×2 (08:40→20:00)
[2022-10-04] MEDS: INSULIN LISPRO (NovoLOG) PER UNIT SC SCH ×4 (08:41→19:51)
[2022-10-04] MEDS: SODIUM CHLORIDE 0.9% INJ 10 ML SYR IV SCH (08:41)
[2022-10-04] MEDS: NS 1,000 ML IV SCH ×2 (08:43→20:00)
[2022-10-04] MEDS ORDERED: MAGNESIUM OXIDE 400MG TAB (MAG-OX) PO SCH (09:00)
[2022-10-04] MEDS: KCL 10MEQ/100ML SWI (KRUN) 10 MEQ in IV 1 EA IV SCH ×3 (09:46→12:43)
[2022-10-04] MEDS: MAG SULF 1GM/100ML (MAG RUN) 1 GM in IV 1 EA IV SCH ×2 (09:47→10:58)
[2022-10-04 14:00] VITALS: BP 111/58; TEMP 98.1; O2SAT 96
[2022-10-04] MEDS: BENZONATATE 100MG CAPSULE PO SCH (20:00)
[2022-10-04] MEDS: LEVEMIR (INSULIN DETEMIR) 1 UNITS/0.01ML SC SCH (20:01)
[2022-10-04 20:12] VITALS: BP 125/61; TEMP 98.1; O2SAT 94
[2022-10-05] MEDS: HYDROMORPHONE HCL 0.5 MG/ 0.5 ML SYRINGE IV PRN ×3 (01:17→08:01)
[2022-10-05] MEDS: SIMETHICONE 80MG CHEW TAB PO PRN ×2 (02:52→20:53)
[2022-10-05] MEDS: METOCLOPRAMIDE INJ 10MG/2ML VIAL IV SCH (04:09)
[2022-10-05 05:24] VITALS: BP 128/62; TEMP 98.1; O2SAT 95
[2022-10-05 06:43] LABS: BASO % 0.3 % (0.0-1.0); EOS # 0.1 10^3/uL (0.0-0.5); EOS % 1.6 % (0.0-3.0); HEMATOCRIT 32.6 % (36.0-47.0); HEMOGLOBIN 10.2 g/dl (12.0-15.5); LYMPH # 0.5 10^3/uL (1.5-5.0); LYMPH % 12.7 % (24.0-44.0); MEAN CORPUSCULAR HEMOGLOBIN 30.8 pg (27.0-33.0); MEAN CORPUSCULAR HGB CONC 31.3 g/dl (32.0-36.5); MEAN CORPUSCULAR VOLUME 98.5 fl (80.0-96.0); MONO # 0.4 10^3/uL (0.0-0.8); MONO % 11.1 % (2.0-8.0); NEUTROPHILS # 2.9 10^3/uL (1.5-8.5); NEUTROPHILS % 73.8 % (36.0-66.0); PLATELET COUNT, AUTOMATED 134 10^3/uL (150-450); RED BLOOD COUNT 3.31 10^6/uL (4.00-5.40); WHITE BLOOD COUNT 3.9 10^3/uL (4.0-10.0)
[2022-10-05 07:21] LABS: BLOOD UREA NITROGEN < 5 MG/DL (9-23); CALCIUM LEVEL 7.4 MG/DL (8.3-10.6); CARBON DIOXIDE LEVEL 26 MMOL/L (20-31); CHLORIDE LEVEL 104 MMOL/L (98-107); CREATININE FOR GFR 0.45 MG/DL (0.55-1.30); GLOMERULAR FILTRATION RATE > 60.0 (>45); GLUCOSE, FASTING 117 MG/DL (74-106); MAGNESIUM LEVEL 1.7 MG/DL (1.8-2.4); POTASSIUM SERUM 3.4 MMOL/L (3.5-5.1); SODIUM LEVEL 137 MMOL/L (136-145)
[2022-10-05] MEDS: PANTOPRAZOLE 40MG VIAL IV SCH (07:58)
[2022-10-05] MEDS: INSULIN LISPRO (NovoLOG) PER UNIT SC SCH ×4 (07:59→20:25)
[2022-10-05] MEDS: ENOXAPARIN 40MG/0.4ML SYRINGE (J1650 PER 10MG) SC SCH (07:59)
[2022-10-05] MEDS: SODIUM CHLORIDE 0.9% INJ 10 ML SYR IV SCH (08:00)
[2022-10-05] MEDS: BENZONATATE 100MG CAPSULE PO SCH ×2 (08:01→20:28)
[2022-10-05] MEDS: AMITRIPTYLINE 50 MG TAB PO SCH ×2 (08:01→20:28)
[2022-10-05] MEDS: MAG SULF 1GM/100ML (MAG RUN) 1 GM in IV 1 EA IV SCH ×3 (11:21→14:59)
[2022-10-05] MEDS: METOCLOPRAMIDE 10MG TAB PO SCH ×2 (11:22→17:34)
[2022-10-05] MEDS: HYDROmorphone 2 MG TAB PO PRN ×3 (11:22→22:29)
[2022-10-05] MEDS: ONDANSETRON 4MG 2ML VIAL IV PRN (12:50)
[2022-10-05 14:00] VITALS: BP 132/65; TEMP 97.9; O2SAT 93
[2022-10-05] MEDS: KCL 10MEQ/100ML SWI (KRUN) 10 MEQ in IV 1 EA IV SCH ×3 (14:59→17:34)
[2022-10-05] MEDS: LEVEMIR (INSULIN DETEMIR) 1 UNITS/0.01ML SC SCH (20:28)
[2022-10-05 22:00] VITALS: BP 132/68; TEMP 98.1; O2SAT 93
[2022-10-06] MEDS: HYDROmorphone 2 MG TAB PO PRN ×2 (04:16→10:29)
[2022-10-06 05:27] VITALS: BP 139/72; TEMP 98.1; O2SAT 94
[2022-10-06 05:59] LABS: BASO % 0.5 % (0.0-1.0); HEMATOCRIT 34.4 % (36.0-47.0); HEMOGLOBIN 10.9 g/dl (12.0-15.5); LYMPH # 0.7 10^3/uL (1.5-5.0); LYMPH % 17.6 % (24.0-44.0); MEAN CORPUSCULAR HEMOGLOBIN 31.2 pg (27.0-33.0); MEAN CORPUSCULAR HGB CONC 31.7 g/dl (32.0-36.5); MEAN CORPUSCULAR VOLUME 98.6 fl (80.0-96.0); MONO # 0.5 10^3/uL (0.0-0.8); NEUTROPHILS # 2.6 10^3/uL (1.5-8.5); NEUTROPHILS % 67.1 % (36.0-66.0); PLATELET COUNT, AUTOMATED 152 10^3/uL (150-450); RED BLOOD COUNT 3.49 10^6/uL (4.00-5.40); WHITE BLOOD COUNT 3.9 10^3/uL (4.0-10.0)
[2022-10-06 06:13] LABS: BLOOD UREA NITROGEN < 5 MG/DL (9-23); CALCIUM LEVEL 8.2 MG/DL (8.3-10.6); CARBON DIOXIDE LEVEL 23 MMOL/L (20-31); CHLORIDE LEVEL 101 MMOL/L (98-107); CREATININE FOR GFR 0.41 MG/DL (0.55-1.30); GLOMERULAR FILTRATION RATE > 60.0 (>45); GLUCOSE, FASTING 192 MG/DL (74-106); MAGNESIUM LEVEL 1.8 MG/DL (1.8-2.4); SODIUM LEVEL 132 MMOL/L (136-145)
[2022-10-06] MEDS: ENOXAPARIN 40MG/0.4ML SYRINGE (J1650 PER 10MG) SC SCH (09:04)
[2022-10-06] MEDS: PANTOPRAZOLE 40MG VIAL IV SCH (09:04)
[2022-10-06] MEDS: AMITRIPTYLINE 50 MG TAB PO SCH ×2 (09:05→21:15)
[2022-10-06] MEDS: BENZONATATE 100MG CAPSULE PO SCH ×2 (09:05→21:00)
[2022-10-06] MEDS: SODIUM CHLORIDE 0.9% INJ 10 ML SYR IV SCH (09:05)
[2022-10-06] MEDS: METOCLOPRAMIDE 10MG TAB PO SCH (09:05)
[2022-10-06] MEDS: INSULIN LISPRO (NovoLOG) PER UNIT SC SCH ×3 (09:07→17:11)
[2022-10-06] MEDS: NS 1,000 ML IV SCH (12:04)
[2022-10-06] MEDS: MAG SULF 1GM/100ML (MAG RUN) 1 GM in IV 1 EA IV SCH ×2 (12:05→13:25)
[2022-10-06] MEDS: HYDROMORPHONE HCL 0.5 MG/ 0.5 ML SYRINGE IV PRN ×4 (12:06→21:25)
[2022-10-06] MEDS: METOCLOPRAMIDE INJ 10MG/2ML VIAL IV SCH ×3 (13:25→21:15)
[2022-10-06] MEDS ORDERED: LIDOCAINE 2% JELLY 6ML SYRINGE TOP ONE (14:00)
[2022-10-06] MEDS ORDERED: METOCLOPRAMIDE 10MG TAB JT SCH (17:30)
[2022-10-06 20:00] VITALS: BP 119/70; TEMP 97.7; O2SAT 92
[2022-10-06] MEDS: LEVEMIR (INSULIN DETEMIR) 1 UNITS/0.01ML SC SCH (21:00)
[2022-10-06] MEDS: CEPACOL LOZENGE PO PRN (22:37)
[2022-10-07] MEDS: INSULIN LISPRO (NovoLOG) PER UNIT SC SCH ×4 (00:30→18:02)
[2022-10-07] MEDS: HYDROMORPHONE HCL 0.5 MG/ 0.5 ML SYRINGE IV PRN ×7 (00:32→19:54)
[2022-10-07] MEDS: CEPACOL LOZENGE PO PRN ×3 (02:02→19:53)
[2022-10-07 06:00] VITALS: BP 141/82; TEMP 97.3; O2SAT 94
[2022-10-07 06:01] LABS: BASO % 0.2 % (0.0-1.0); EOS # 0.1 10^3/uL (0.0-0.5); EOS % 1.6 % (0.0-3.0); HEMATOCRIT 32.3 % (36.0-47.0); HEMOGLOBIN 10.4 g/dl (12.0-15.5); LYMPH # 0.8 10^3/uL (1.5-5.0); LYMPH % 16.2 % (24.0-44.0); MEAN CORPUSCULAR HEMOGLOBIN 31.3 pg (27.0-33.0); MEAN CORPUSCULAR HGB CONC 32.2 g/dl (32.0-36.5); MEAN CORPUSCULAR VOLUME 97.3 fl (80.0-96.0); MONO # 0.6 10^3/uL (0.0-0.8); MONO % 12.6 % (2.0-8.0); NEUTROPHILS # 3.4 10^3/uL (1.5-8.5); NEUTROPHILS % 68.2 % (36.0-66.0); PLATELET COUNT, AUTOMATED 164 10^3/uL (150-450); RED BLOOD COUNT 3.32 10^6/uL (4.00-5.40)
[2022-10-07 06:26] LABS: BLOOD UREA NITROGEN < 5 MG/DL (9-23); CALCIUM LEVEL 7.8 MG/DL (8.3-10.6); CARBON DIOXIDE LEVEL 25 MMOL/L (20-31); CHLORIDE LEVEL 101 MMOL/L (98-107); CREATININE FOR GFR 0.43 MG/DL (0.55-1.30); GLOMERULAR FILTRATION RATE > 60.0 (>45); GLUCOSE, FASTING 155 MG/DL (74-106); MAGNESIUM LEVEL 1.6 MG/DL (1.8-2.4); POTASSIUM SERUM 3.6 MMOL/L (3.5-5.1); SODIUM LEVEL 136 MMOL/L (136-145)
[2022-10-07] MEDS: METOCLOPRAMIDE INJ 10MG/2ML VIAL IV SCH (06:37)
[2022-10-07] MEDS: NS 1,000 ML IV SCH (06:43)
[2022-10-07] MEDS: BENZONATATE 100MG CAPSULE PO SCH ×2 (09:00→21:00)
[2022-10-07] MEDS: ENOXAPARIN 40MG/0.4ML SYRINGE (J1650 PER 10MG) SC SCH (09:53)
[2022-10-07] MEDS: AMITRIPTYLINE 50 MG TAB PO SCH ×2 (09:53→21:11)
[2022-10-07] MEDS: SODIUM CHLORIDE 0.9% INJ 10 ML SYR IV SCH (09:53)
[2022-10-07] MEDS: PANTOPRAZOLE 40MG VIAL IV SCH (09:53)
[2022-10-07] MEDS: MAG SULF 1GM/100ML (MAG RUN) 1 GM in IV 1 EA IV SCH ×4 (12:29→15:49)
[2022-10-07 14:00] VITALS: BP 131/67; TEMP 97.7; O2SAT 94
[2022-10-07] MEDS: KCL 10MEQ/100ML SWI (KRUN) 10 MEQ in IV 1 EA IV SCH ×2 (16:54→18:02)
[2022-10-07 22:00] VITALS: BP 133/67; TEMP 98.1; O2SAT 95
[2022-10-08] MEDS: HYDROMORPHONE HCL 0.5 MG/ 0.5 ML SYRINGE IV PRN ×7 (01:05→23:09)
[2022-10-08] MEDS: INSULIN LISPRO (NovoLOG) PER UNIT SC SCH ×4 (01:10→17:54)
[2022-10-08] MEDS: CEPACOL LOZENGE PO PRN ×3 (05:03→20:40)
[2022-10-08] MEDS: NS 1,000 ML IV SCH ×2 (05:04→17:53)
[2022-10-08 06:00] VITALS: BP 132/69; TEMP 97.7; O2SAT 94
[2022-10-08 06:08] LABS: BASO % 0.2 % (0.0-1.0); EOS # 0.1 10^3/uL (0.0-0.5); EOS % 1.9 % (0.0-3.0); HEMATOCRIT 33.1 % (36.0-47.0); HEMOGLOBIN 10.7 g/dl (12.0-15.5); LYMPH # 0.9 10^3/uL (1.5-5.0); LYMPH % 18.4 % (24.0-44.0); MEAN CORPUSCULAR HEMOGLOBIN 31.5 pg (27.0-33.0); MEAN CORPUSCULAR HGB CONC 32.3 g/dl (32.0-36.5); MEAN CORPUSCULAR VOLUME 97.4 fl (80.0-96.0); MONO # 0.6 10^3/uL (0.0-0.8); MONO % 12.3 % (2.0-8.0); NEUTROPHILS # 3.2 10^3/uL (1.5-8.5); NEUTROPHILS % 66.6 % (36.0-66.0); PLATELET COUNT, AUTOMATED 189 10^3/uL (150-450); WHITE BLOOD COUNT 4.8 10^3/uL (4.0-10.0)
[2022-10-08 06:34] LABS: BLOOD UREA NITROGEN < 5 MG/DL (9-23); CALCIUM LEVEL 7.6 MG/DL (8.3-10.6); CARBON DIOXIDE LEVEL 23 MMOL/L (20-31); CHLORIDE LEVEL 103 MMOL/L (98-107); CREATININE FOR GFR 0.39 MG/DL (0.55-1.30); GLOMERULAR FILTRATION RATE > 60.0 (>45); GLUCOSE, FASTING 111 MG/DL (74-106); MAGNESIUM LEVEL 1.7 MG/DL (1.8-2.4); POTASSIUM SERUM 3.8 MMOL/L (3.5-5.1); SODIUM LEVEL 135 MMOL/L (136-145)
[2022-10-08] MEDS: BENZONATATE 100MG CAPSULE PO SCH ×2 (09:00→21:00)
[2022-10-08] MEDS: ENOXAPARIN 40MG/0.4ML SYRINGE (J1650 PER 10MG) SC SCH (09:28)
[2022-10-08] MEDS: PANTOPRAZOLE 40MG VIAL IV SCH (09:28)
[2022-10-08] MEDS: AMITRIPTYLINE 50 MG TAB PO SCH ×2 (09:28→20:40)
[2022-10-08] MEDS: SODIUM CHLORIDE 0.9% INJ 10 ML SYR IV SCH (09:29)
[2022-10-08] MEDS ORDERED: LIDOCAINE 2% JELLY 6ML SYRINGE TOP ONE (11:00)
[2022-10-08 14:00] VITALS: BP 137/74; TEMP 98.1; O2SAT 92
[2022-10-08 20:00] VITALS: BP 121/67; TEMP 97.9; O2SAT 94
[2022-10-09] MEDS: INSULIN LISPRO (NovoLOG) PER UNIT SC SCH ×4 (00:44→18:27)
[2022-10-09] MEDS: HYDROMORPHONE HCL 0.5 MG/ 0.5 ML SYRINGE IV PRN ×7 (02:19→23:39)
[2022-10-09 06:00] VITALS: BP 114/63; TEMP 97.7; O2SAT 93
[2022-10-09] MEDS: MAG SULF 1GM/100ML (MAG RUN) 1 GM in IV 1 EA IV SCH ×2 (06:19→08:45)
[2022-10-09 08:36] LABS: BASO % 0.4 % (0.0-1.0); EOS # 0.1 10^3/uL (0.0-0.5); EOS % 1.8 % (0.0-3.0); HEMATOCRIT 34.3 % (36.0-47.0); LYMPH # 0.9 10^3/uL (1.5-5.0); LYMPH % 18.4 % (24.0-44.0); MEAN CORPUSCULAR HEMOGLOBIN 31.3 pg (27.0-33.0); MEAN CORPUSCULAR HGB CONC 32.1 g/dl (32.0-36.5); MEAN CORPUSCULAR VOLUME 97.7 fl (80.0-96.0); MONO # 0.5 10^3/uL (0.0-0.8); MONO % 10.2 % (2.0-8.0); NEUTROPHILS # 3.5 10^3/uL (1.5-8.5); NEUTROPHILS % 67.8 % (36.0-66.0); PLATELET COUNT, AUTOMATED 226 10^3/uL (150-450); RED BLOOD COUNT 3.51 10^6/uL (4.00-5.40); WHITE BLOOD COUNT 5.1 10^3/uL (4.0-10.0)
[2022-10-09] MEDS: BENZONATATE 100MG CAPSULE PO SCH ×2 (08:37→19:57)
[2022-10-09] MEDS: PANTOPRAZOLE 40MG VIAL IV SCH (08:45)
[2022-10-09] MEDS: SODIUM CHLORIDE 0.9% INJ 10 ML SYR IV SCH (08:45)
[2022-10-09] MEDS: AMITRIPTYLINE 50 MG TAB PO SCH ×2 (08:45→19:57)
[2022-10-09] MEDS: ENOXAPARIN 40MG/0.4ML SYRINGE (J1650 PER 10MG) SC SCH (08:45)
[2022-10-09 09:03] LABS: BLOOD UREA NITROGEN < 5 MG/DL (9-23); CALCIUM LEVEL 8.7 MG/DL (8.3-10.6); CARBON DIOXIDE LEVEL 21 MMOL/L (20-31); CHLORIDE LEVEL 103 MMOL/L (98-107); CREATININE FOR GFR 0.44 MG/DL (0.55-1.30); GLOMERULAR FILTRATION RATE > 60.0 (>45); GLUCOSE, FASTING 136 MG/DL (74-106); POTASSIUM SERUM 3.5 MMOL/L (3.5-5.1); SODIUM LEVEL 134 MMOL/L (136-145)
[2022-10-09] MEDS: NS 1,000 ML IV SCH (12:16)
[2022-10-09 14:00] VITALS: BP 130/75; TEMP 97.2; O2SAT 94
[2022-10-09] MEDS: ONDANSETRON 4MG 2ML VIAL IV PRN (18:26)
[2022-10-09 21:00] VITALS: BP 118/61; TEMP 97.9; O2SAT 93
[2022-10-09] MEDS: CEPACOL LOZENGE PO PRN (23:39)
[2022-10-10] MEDS: NS 1,000 ML IV SCH ×2 (02:59→18:20)
[2022-10-10] MEDS: HYDROMORPHONE HCL 0.5 MG/ 0.5 ML SYRINGE IV PRN ×8 (03:00→21:16)
[2022-10-10 05:17] VITALS: BP 113/62; TEMP 97.9; O2SAT 95
[2022-10-10 06:04] LABS: BASO % 0.4 % (0.0-1.0); EOS # 0.1 10^3/uL (0.0-0.5); EOS % 1.9 % (0.0-3.0); HEMATOCRIT 35.1 % (36.0-47.0); HEMOGLOBIN 10.9 g/dl (12.0-15.5); LYMPH # 0.9 10^3/uL (1.5-5.0); LYMPH % 18.6 % (24.0-44.0); MEAN CORPUSCULAR HEMOGLOBIN 31.1 pg (27.0-33.0); MEAN CORPUSCULAR HGB CONC 31.1 g/dl (32.0-36.5); MEAN CORPUSCULAR VOLUME 100.3 fl (80.0-96.0); MONO # 0.4 10^3/uL (0.0-0.8); MONO % 8.5 % (2.0-8.0); NEUTROPHILS # 3.4 10^3/uL (1.5-8.5); NEUTROPHILS % 69.6 % (36.0-66.0); PLATELET COUNT, AUTOMATED 244 10^3/uL (150-450); WHITE BLOOD COUNT 4.9 10^3/uL (4.0-10.0)
[2022-10-10 06:19] LABS: BLOOD UREA NITROGEN < 5 MG/DL (9-23); CALCIUM LEVEL 8.7 MG/DL (8.3-10.6); CARBON DIOXIDE LEVEL 18 MMOL/L (20-31); CHLORIDE LEVEL 107 MMOL/L (98-107); CREATININE FOR GFR 0.43 MG/DL (0.55-1.30); GLOMERULAR FILTRATION RATE > 60.0 (>45); GLUCOSE, FASTING 159 MG/DL (74-106); POTASSIUM SERUM 3.9 MMOL/L (3.5-5.1); SODIUM LEVEL 135 MMOL/L (136-145)
[2022-10-10] MEDS: INSULIN LISPRO (NovoLOG) PER UNIT SC SCH ×4 (06:41→18:16)
[2022-10-10] MEDS: AMITRIPTYLINE 50 MG TAB PO SCH ×2 (08:43→21:11)
[2022-10-10] MEDS: PANTOPRAZOLE 40MG VIAL IV SCH (08:43)
[2022-10-10] MEDS: BENZONATATE 100MG CAPSULE PO SCH ×2 (08:43→21:00)
[2022-10-10] MEDS: ENOXAPARIN 40MG/0.4ML SYRINGE (J1650 PER 10MG) SC SCH (08:44)
[2022-10-10] MEDS: SODIUM CHLORIDE 0.9% INJ 10 ML SYR IV SCH (09:00)
[2022-10-10] MEDS: CEPACOL LOZENGE PO PRN ×3 (10:00→18:15)
[2022-10-10 14:00] VITALS: BP 112/61; TEMP 97.7; O2SAT 97
[2022-10-10 20:34] VITALS: BP 119/61; TEMP 97.9; O2SAT 96
[2022-10-11] MEDS: HYDROMORPHONE HCL 0.5 MG/ 0.5 ML SYRINGE IV PRN ×7 (01:02→20:47)
[2022-10-11] MEDS: INSULIN LISPRO (NovoLOG) PER UNIT SC SCH ×4 (01:02→16:52)
[2022-10-11 06:07] LABS: BASO % 0.3 % (0.0-1.0); EOS # 0.1 10^3/uL (0.0-0.5); EOS % 1.7 % (0.0-3.0); HEMATOCRIT 33.7 % (36.0-47.0); HEMOGLOBIN 10.5 g/dl (12.0-15.5); LYMPH # 0.9 10^3/uL (1.5-5.0); LYMPH % 15.4 % (24.0-44.0); MEAN CORPUSCULAR HEMOGLOBIN 31.1 pg (27.0-33.0); MEAN CORPUSCULAR HGB CONC 31.2 g/dl (32.0-36.5); MEAN CORPUSCULAR VOLUME 99.7 fl (80.0-96.0); MONO # 0.5 10^3/uL (0.0-0.8); MONO % 7.9 % (2.0-8.0); NEUTROPHILS # 4.4 10^3/uL (1.5-8.5); NEUTROPHILS % 73.7 % (36.0-66.0); PLATELET COUNT, AUTOMATED 235 10^3/uL (150-450); RED BLOOD COUNT 3.38 10^6/uL (4.00-5.40)
[2022-10-11 06:22] LABS: BLOOD UREA NITROGEN < 5 MG/DL (9-23); CALCIUM LEVEL 8.9 MG/DL (8.3-10.6); CARBON DIOXIDE LEVEL 16 MMOL/L (20-31); CHLORIDE LEVEL 107 MMOL/L (98-107); CREATININE FOR GFR 0.47 MG/DL (0.55-1.30); GLOMERULAR FILTRATION RATE > 60.0 (>45); GLUCOSE, FASTING 139 MG/DL (74-106); MAGNESIUM LEVEL 1.3 MG/DL (1.8-2.4); POTASSIUM SERUM 3.9 MMOL/L (3.5-5.1); SODIUM LEVEL 138 MMOL/L (136-145)
[2022-10-11] MEDS: MAG SULF 1GM/100ML (MAG RUN) 1 GM in IV 1 EA IV SCH ×3 (07:45→09:39)
[2022-10-11] MEDS: NS 1,000 ML IV SCH (08:10)
[2022-10-11] MEDS: ONDANSETRON 4MG 2ML VIAL IV PRN ×2 (08:32→20:38)
[2022-10-11] MEDS: PANTOPRAZOLE 40MG VIAL IV SCH (08:32)
[2022-10-11] MEDS: AMITRIPTYLINE 50 MG TAB PO SCH ×2 (08:33→20:38)
[2022-10-11] MEDS: BENZONATATE 100MG CAPSULE PO SCH ×2 (08:33→20:38)
[2022-10-11] MEDS: SODIUM CHLORIDE 0.9% INJ 10 ML SYR IV SCH (08:34)
[2022-10-11] MEDS: ENOXAPARIN 40MG/0.4ML SYRINGE (J1650 PER 10MG) SC SCH (08:34)
[2022-10-11 14:30] VITALS: BP 112/61; TEMP 97.9; O2SAT 95
[2022-10-11 20:00] VITALS: BP 111/60; TEMP 98.1; O2SAT 98
[2022-10-12] MEDS: INSULIN LISPRO (NovoLOG) PER UNIT SC SCH ×3 (00:30→14:12)
[2022-10-12] MEDS: HYDROMORPHONE HCL 0.5 MG/ 0.5 ML SYRINGE IV PRN ×4 (00:32→16:28)
[2022-10-12] MEDS: NS 1,000 ML IV SCH (02:15)
[2022-10-12 06:00] VITALS: BP 107/57; TEMP 97.7; O2SAT 97
[2022-10-12 06:07] LABS: BASO % 0.4 % (0.0-1.0); EOS # 0.1 10^3/uL (0.0-0.5); EOS % 2.1 % (0.0-3.0); HEMATOCRIT 34.1 % (36.0-47.0); HEMOGLOBIN 10.9 g/dl (12.0-15.5); LYMPH # 0.5 10^3/uL (1.5-5.0); LYMPH % 10.9 % (24.0-44.0); MEAN CORPUSCULAR HEMOGLOBIN 30.5 pg (27.0-33.0); MEAN CORPUSCULAR VOLUME 95.5 fl (80.0-96.0); MONO # 0.4 10^3/uL (0.0-0.8); NEUTROPHILS # 3.8 10^3/uL (1.5-8.5); NEUTROPHILS % 78.2 % (36.0-66.0); PLATELET COUNT, AUTOMATED 229 10^3/uL (150-450); RED BLOOD COUNT 3.57 10^6/uL (4.00-5.40); WHITE BLOOD COUNT 4.9 10^3/uL (4.0-10.0)
[2022-10-12 06:22] LABS: BLOOD UREA NITROGEN < 5 MG/DL (9-23); CALCIUM LEVEL 9.5 MG/DL (8.3-10.6); CARBON DIOXIDE LEVEL 20 MMOL/L (20-31); CHLORIDE LEVEL 106 MMOL/L (98-107); CREATININE FOR GFR 0.38 MG/DL (0.55-1.30); GLOMERULAR FILTRATION RATE > 60.0 (>45); GLUCOSE, FASTING 200 MG/DL (74-106); MAGNESIUM LEVEL 1.5 MG/DL (1.8-2.4); POTASSIUM SERUM 3.4 MMOL/L (3.5-5.1); SODIUM LEVEL 136 MMOL/L (136-145)
[2022-10-12] MEDS ORDERED: POTASSIUM CHLORIDE 10MEQ SR TABLET PO SCH (08:00)
[2022-10-12] MEDS ORDERED: POTASSIUM CHLORIDE 10MEQ SR TABLET PO ONE (08:00)
[2022-10-12] MEDS: ENOXAPARIN 40MG/0.4ML SYRINGE (J1650 PER 10MG) SC SCH (08:37)
[2022-10-12] MEDS: BENZONATATE 100MG CAPSULE PO SCH (08:37)
[2022-10-12] MEDS: PANTOPRAZOLE 40MG VIAL IV SCH (08:38)
[2022-10-12] MEDS: AMITRIPTYLINE 50 MG TAB PO SCH (08:38)
[2022-10-12] MEDS: SODIUM CHLORIDE 0.9% INJ 10 ML SYR IV SCH (08:38)
[2022-10-12] MEDS ORDERED: KCL 20MEQ IN 100ML SWI (KRUN) 20 MEQ in IV 1 EA IV ONE ×2 (08:55)
[2022-10-12] MEDS: MAG SULF 1GM/100ML (MAG RUN) 1 GM in IV 1 EA IV SCH ×2 (09:21→10:28)
[2022-10-12] MEDS: KCL 10MEQ/100ML SWI (KRUN) IV SCH ×8 (11:35→15:22)
[2022-10-12 14:00] VITALS: BP 123/69; TEMP 97.9; O2SAT 96
[2022-10-12] MEDS ORDERED: KCL 10MEQ IN STERILE WATER 100ML As Ordered ONE (15:16)
== END 2022-10-12 16:50 | disposition home or self-care (01) | DRG 254 ==
LOC: EDBD 11:56 → M ED 11:56 → M ED INP 18:07 → M MS4PR 20:23 → M MSPAV 10-02 14:44
PROVIDERS: ADMIT Internal Medicine; ATTEND Student in an Organized Health Care Education/Training Program
DX: K43.0 Incisional hernia with obstruction, without gangrene (principal); E87.20 Acidosis, unspecified; E83.42 Hypomagnesemia; K21.9 Gastro-esophageal reflux disease without esophagitis; G43.909 Migraine, unspecified, not intractable, without status migrainosus; E11.9 Type 2 diabetes mellitus without complications; Z79.4 Long term (current) use of insulin; E87.6 Hypokalemia; G89.29 Other chronic pain; J45.909 Unspecified asthma, uncomplicated; J98.11 Atelectasis; N20.0 Calculus of kidney; Z88.0 Allergy status to penicillin; Z91.040 Latex allergy status; Z88.8 Allergy status to other drugs, medicaments and biological substances; Z91.018 Allergy to other foods; Z88.2 Allergy status to sulfonamides; Z88.5 Allergy status to narcotic agent; Z79.899 Other long term (current) drug therapy; E78.5 Hyperlipidemia, unspecified; Z86.73 Personal history of transient ischemic attack (TIA), and cerebral infarction without residual deficits; Z86.718 Personal history of other venous thrombosis and embolism; Z86.711 Personal history of pulmonary embolism; I10 Essential (primary) hypertension; Z93.2 Ileostomy status; Z66 Do not resuscitate

== ENCOUNTER 2022-10-15 18:58 | Emergency (ER) | payer OTHER ==
[~2022-10-15 18:58] MED LIST changes: +DICY-61 PO; -DICY10CA13 PO; +MAGN400T35 PO; +SODIUM CHLORIDE 0.9% INJ 10 ML SYR IV SCH
[2022-10-15] MEDS ORDERED: METOCLOPRAMIDE INJ 10MG/2ML VIAL IV ONE (19:25)
[2022-10-15] MEDS ORDERED: NS 500 ML IV ONE (19:25)
[2022-10-15] MEDS: HYDROMORPHONE HCL 0.5 MG/ 0.5 ML SYRINGE IV PRN ×2 (19:56→21:31)
[2022-10-15 20:28] LABS: BASO % 0.4 % (0.0-1.0); EOS # 0.1 10^3/uL (0.0-0.5); EOS % 0.6 % (0.0-3.0); HEMOGLOBIN 12.5 g/dl (12.0-15.5); LYMPH # 1.2 10^3/uL (1.5-5.0); LYMPH % 13.8 % (24.0-44.0); MEAN CORPUSCULAR HEMOGLOBIN 30.8 pg (27.0-33.0); MEAN CORPUSCULAR HGB CONC 32.1 g/dl (32.0-36.5); MEAN CORPUSCULAR VOLUME 96.1 fl (80.0-96.0); MONO % 11.5 % (2.0-8.0); NEUTROPHILS # 6.2 10^3/uL (1.5-8.5); NEUTROPHILS % 73.2 % (36.0-66.0); PLATELET COUNT, AUTOMATED 295 10^3/uL (150-450); RED BLOOD COUNT 4.06 10^6/uL (4.00-5.40); WHITE BLOOD COUNT 8.5 10^3/uL (4.0-10.0)
[2022-10-15 20:55] LABS: LIPASE 16 U/L (12-53)
[2022-10-15 20:57] LABS: ALKALINE PHOSPHATASE 136 U/L (46-116); ALT/SGPT 27 U/L (7.0-40); AST/SGOT 37 U/L (<34); BILIRUBIN,DIRECT 0.1 MG/DL (<0.4); BILIRUBIN,TOTAL 0.3 MG/DL (0.3-1.2); BLOOD UREA NITROGEN 10 MG/DL (9-23); CALCIUM LEVEL 10.1 MG/DL (8.3-10.6); CARBON DIOXIDE LEVEL 31 MMOL/L (20-31); CHLORIDE LEVEL 101 MMOL/L (98-107); CREATININE FOR GFR 0.51 MG/DL (0.55-1.30); GLOMERULAR FILTRATION RATE > 60.0 (>45); GLUCOSE, FASTING 113 MG/DL (74-106); SODIUM LEVEL 139 MMOL/L (136-145); TOTAL PROTEIN 6.6 G/DL (5.7-8.2)
[2022-10-15 21:00] VITALS: BP 120/63; TEMP 97.4
[2022-10-15 21:31] VITALS: O2SAT 94
== END 2022-10-15 23:23 | disposition home or self-care (01) ==
LOC: M ED 18:58 → EDBD 18:58 → M ED 23:23
DX: R10.9 Unspecified abdominal pain (principal); R11.2 Nausea with vomiting, unspecified; K56.7 Ileus, unspecified; E11.9 Type 2 diabetes mellitus without complications; E78.5 Hyperlipidemia, unspecified; Z90.49 Acquired absence of other specified parts of digestive tract; Z90.710 Acquired absence of both cervix and uterus; Z86.73 Personal history of transient ischemic attack (TIA), and cerebral infarction without residual deficits; Z87.442 Personal history of urinary calculi; Z88.0 Allergy status to penicillin; Z88.1 Allergy status to other antibiotic agents; Z88.2 Allergy status to sulfonamides; Z88.6 Allergy status to analgesic agent; Z88.5 Allergy status to narcotic agent; Z88.8 Allergy status to other drugs, medicaments and biological substances; Z91.048 Other nonmedicinal substance allergy status; Z79.899 Other long term (current) drug therapy
CPT/HCPCS: 74019; 80048; 80076; 83690; 85025; 93041; 96361; 96374; 96375; 99284; J1170; J2765

== ENCOUNTER 2022-10-17 12:03 | Emergency (ER) | payer OTHER ==
[~2022-10-17 12:03] MED LIST changes: -MAG SULF 1GM/100ML (MAG RUN) IV SCH; -SODIUM CHLORIDE 0.9% INJ 10 ML SYR IV PRN; -SODIUM CHLORIDE 0.9% INJ 10 ML SYR IV SCH
[2022-10-17 15:29] LABS: BASO % 0.6 % (0.0-1.0); EOS % 0.6 % (0.0-3.0); HEMATOCRIT 40.4 % (36.0-47.0); HEMOGLOBIN 13.1 g/dl (12.0-15.5); LYMPH # 1.3 10^3/uL (1.5-5.0); LYMPH % 26.1 % (24.0-44.0); MEAN CORPUSCULAR HEMOGLOBIN 31.2 pg (27.0-33.0); MEAN CORPUSCULAR HGB CONC 32.4 g/dl (32.0-36.5); MEAN CORPUSCULAR VOLUME 96.2 fl (80.0-96.0); MONO # 0.8 10^3/uL (0.0-0.8); MONO % 15.2 % (2.0-8.0); NEUTROPHILS # 2.8 10^3/uL (1.5-8.5); NEUTROPHILS % 56.7 % (36.0-66.0); PLATELET COUNT, AUTOMATED 307 10^3/uL (150-450)
[2022-10-17 15:58] LABS: LIPASE 18 U/L (12-53)
[2022-10-17 16:02] LABS: ALBUMIN 2.9 G/DL (3.2-5.2); ALKALINE PHOSPHATASE 135 U/L (46-116); ALT/SGPT 15 U/L (7.0-40); AST/SGOT 34 U/L (<34); BILIRUBIN,DIRECT 0.1 MG/DL (<0.4); BILIRUBIN,TOTAL 0.2 MG/DL (0.3-1.2); BLOOD UREA NITROGEN 13 MG/DL (9-23); CALCIUM LEVEL 10.8 MG/DL (8.3-10.6); CARBON DIOXIDE LEVEL 35 MMOL/L (20-31); CHLORIDE LEVEL 96 MMOL/L (98-107); CREATININE FOR GFR 0.63 MG/DL (0.55-1.30); GLOMERULAR FILTRATION RATE > 60.0 (>45); GLUCOSE, FASTING 142 MG/DL (74-106); POTASSIUM SERUM 4.4 MMOL/L (3.5-5.1); SODIUM LEVEL 135 MMOL/L (136-145); TOTAL PROTEIN 7.1 G/DL (5.7-8.2)
[2022-10-17 16:58] VITALS: TEMP 97.6
[2022-10-17] MEDS ORDERED: GASTROGRAFIN SOLUTION 30ML As Ordered ONE (17:59)
[2022-10-17] MEDS: GASTROGRAFIN SOLUTION 30ML PO SCH (18:12)
[2022-10-17 19:22] VITALS: BP 113/80; O2SAT 97
== END 2022-10-17 21:55 | disposition home or self-care (01) ==
LOC: M ED 12:03
DX: R10.9 Unspecified abdominal pain (principal); Z93.3 Colostomy status; E11.9 Type 2 diabetes mellitus without complications; E78.5 Hyperlipidemia, unspecified; Z86.73 Personal history of transient ischemic attack (TIA), and cerebral infarction without residual deficits; Z86.711 Personal history of pulmonary embolism; Z86.718 Personal history of other venous thrombosis and embolism; J45.909 Unspecified asthma, uncomplicated; Z79.4 Long term (current) use of insulin; Z79.899 Other long term (current) drug therapy; Z91.041 Radiographic dye allergy status; Z91.018 Allergy to other foods; Z88.3 Allergy status to other anti-infective agents; Z88.0 Allergy status to penicillin; Z88.2 Allergy status to sulfonamides; Z91.89 Other specified personal risk factors, not elsewhere classified; Z88.8 Allergy status to other drugs, medicaments and biological substances; Z91.040 Latex allergy status; Z88.1 Allergy status to other antibiotic agents; Z88.5 Allergy status to narcotic agent; Z88.4 Allergy status to anesthetic agent; Z91.02 Food additives allergy status

== ENCOUNTER → 2022-10-17 | Outpatient (CLI) | payer OTHER ==
[~2022-10-17] MED LIST changes: +MAG SULF 1GM/100ML (MAG RUN) IV SCH; +SODIUM CHLORIDE 0.9% INJ 10 ML SYR IV PRN
== END ==
LOC: M INFU 08:30
PROVIDERS: ATTEND Family Medicine
DX: E83.42 Hypomagnesemia (principal); Z88.3 Allergy status to other anti-infective agents; Z88.0 Allergy status to penicillin; Z88.2 Allergy status to sulfonamides; Z88.8 Allergy status to other drugs, medicaments and biological substances; Z88.1 Allergy status to other antibiotic agents; Z88.5 Allergy status to narcotic agent

== ENCOUNTER 2022-10-18 11:35 | Outpatient (CLI) | payer OTHER ==
[2022-10-18 11:35] VITALS: BP 119/68; O2SAT 98
[~2022-10-18 11:35] MED LIST changes: +SODIUM CHLORIDE 0.9% INJ 10 ML SYR IV PRN; +SODIUM CHLORIDE 0.9% INJ 10 ML SYR IV SCH
[2022-10-18] MEDS: MAG SULF 1GM/100ML (MAG RUN) IV SCH ×8 (11:47→13:52)
[2022-10-18 13:53] VITALS: BP 121/81; O2SAT 99
[2022-10-18 15:19] VITALS: BP 119/72; O2SAT 99
== END 2022-10-18 15:35 ==
LOC: M INFU 11:35
PROVIDERS: ATTEND Family Medicine
DX: E83.42 Hypomagnesemia (principal); E11.65 Type 2 diabetes mellitus with hyperglycemia; Z88.0 Allergy status to penicillin; Z88.2 Allergy status to sulfonamides; Z88.8 Allergy status to other drugs, medicaments and biological substances; Z91.041 Radiographic dye allergy status; Z91.048 Other nonmedicinal substance allergy status
CPT/HCPCS: 96365; 96366; J3475

== ENCOUNTER 2022-11-06 08:00 | Outpatient (CLI) | payer OTHER ==
[2022-11-06 08:00] VITALS: BP 124/66; O2SAT 98
[~2022-11-06 08:00] MED LIST changes: -SODIUM CHLORIDE 0.9% INJ 10 ML SYR IV SCH
[2022-11-06] MEDS ORDERED: SODIUM CHLORIDE 0.9% INJ 10 ML SYR IV SCH (09:00)
[2022-11-06] MEDS: MAG SULF 1GM/100ML (MAG RUN) IV SCH ×8 (09:30→12:29)
[2022-11-06 13:45] VITALS: BP 131/69; O2SAT 97
== END 2022-11-06 13:45 ==
LOC: M INFU 08:00
PROVIDERS: ATTEND Family Medicine
DX: E83.42 Hypomagnesemia (principal); Z88.0 Allergy status to penicillin; Z88.2 Allergy status to sulfonamides; Z88.1 Allergy status to other antibiotic agents; Z88.8 Allergy status to other drugs, medicaments and biological substances; Z88.5 Allergy status to narcotic agent; Z91.018 Allergy to other foods; Z88.3 Allergy status to other anti-infective agents
CPT/HCPCS: 36591; 83735; 96365; 96366; J3475

== ENCOUNTER → 2022-11-12 | Outpatient (REF) | payer OTHER ==
[~2022-11-12] MED LIST changes: -SODIUM CHLORIDE 0.9% INJ 10 ML SYR IV PRN
== END ==
LOC: M SFHCPLAZ 11:32
PROVIDERS: ATTEND Student in an Organized Health Care Education/Training Program
DX: R30.0 Dysuria (principal)

== ENCOUNTER 2022-11-13 07:30 | Outpatient (CLI) | payer OTHER ==
[2022-11-13 07:00] VITALS: BP 118/20; O2SAT 97
[~2022-11-13 07:30] MED LIST changes: +SODIUM CHLORIDE 0.9% INJ 10 ML SYR IV PRN
[2022-11-13] MEDS: MAG SULF 1GM/100ML (MAG RUN) IV SCH ×8 (08:25→11:30)
[2022-11-13] MEDS ORDERED: SODIUM CHLORIDE 0.9% INJ 10 ML SYR IV SCH (09:00)
[2022-11-13 12:38] VITALS: BP 106/57; O2SAT 97
== END 2022-11-13 12:35 | disposition home or self-care (01) ==
LOC: M INFU 07:30
PROVIDERS: ATTEND Family Medicine
DX: E83.42 Hypomagnesemia (principal); Z88.3 Allergy status to other anti-infective agents; Z88.0 Allergy status to penicillin; Z88.2 Allergy status to sulfonamides; Z88.8 Allergy status to other drugs, medicaments and biological substances; Z88.5 Allergy status to narcotic agent; Z88.1 Allergy status to other antibiotic agents
CPT/HCPCS: 36592; 83735; 96365; 96366; J3475

== ENCOUNTER 2022-11-20 08:00 | Outpatient (CLI) | payer OTHER ==
[~2022-11-20] VITALS: Ht 167.6 cm; Wt 77.1 kg
[2022-11-20 08:00] VITALS: BP 119/64; O2SAT 96
[~2022-11-20 08:00] MED LIST changes: -SODIUM CHLORIDE 0.9% INJ 10 ML SYR IV PRN
[2022-11-20] MEDS ORDERED: SODIUM CHLORIDE 0.9% INJ 10 ML SYR IV PRN (08:20)
[2022-11-20] MEDS ORDERED: MAG SULF 1GM/100ML (MAG RUN) IV ONE ×4 (08:30→09:45)
[2022-11-20] MEDS ORDERED: SODIUM CHLORIDE 0.9% INJ 10 ML SYR IV SCH (09:00)
[2022-11-20 10:45] VITALS: BP 118/57; O2SAT 96
== END 2022-11-20 10:45 | disposition home or self-care (01) ==
LOC: M INFU 08:00
PROVIDERS: ATTEND Family Medicine
DX: E83.42 Hypomagnesemia (principal); Z88.3 Allergy status to other anti-infective agents; Z88.0 Allergy status to penicillin; Z88.2 Allergy status to sulfonamides; Z88.8 Allergy status to other drugs, medicaments and biological substances; Z88.1 Allergy status to other antibiotic agents; Z88.5 Allergy status to narcotic agent
CPT/HCPCS: 36591; 83735; 96365; 96366; J3475

== ENCOUNTER 2022-11-27 08:35 | Outpatient (CLI) | payer OTHER ==
[~2022-11-27] VITALS: Ht 167.6 cm; Wt 77.0 kg
[2022-11-27 08:35] VITALS: BP 140/66; O2SAT 20
[2022-11-27] MEDS ORDERED: SODIUM CHLORIDE 0.9% INJ 10 ML SYR IV PRN (09:00)
[2022-11-27] MEDS ORDERED: MAG SULF 1GM/100ML (MAG RUN) IV ONE ×4 (09:00→10:20)
[2022-11-27] MEDS ORDERED: SODIUM CHLORIDE 0.9% INJ 10 ML SYR IV SCH (09:00)
[2022-11-27 09:24] LABS: HEMATOCRIT 35.7 % (36.0-47.0); HEMOGLOBIN 11.5 g/dl (12.0-15.5); MEAN CORPUSCULAR HEMOGLOBIN 31.5 pg (27.0-33.0); MEAN CORPUSCULAR HGB CONC 32.2 g/dl (32.0-36.5); MEAN CORPUSCULAR VOLUME 97.8 fl (80.0-96.0); PLATELET COUNT, AUTOMATED 168 10^3/uL (150-450); RED BLOOD COUNT 3.65 10^6/uL (4.00-5.40); WHITE BLOOD COUNT 6.3 10^3/uL (4.0-10.0)
[2022-11-27 09:50] LABS: ALBUMIN 3.5 G/DL (3.2-5.2); BLOOD UREA NITROGEN 10 MG/DL (9-23); CALCIUM LEVEL 9.6 MG/DL (8.3-10.6); CARBON DIOXIDE LEVEL 24 MMOL/L (20-31); CHLORIDE LEVEL 107 MMOL/L (98-107); CREATININE FOR GFR 0.44 MG/DL (0.55-1.30); GLOMERULAR FILTRATION RATE > 60.0 (>45); GLUCOSE, FASTING 207 MG/DL (74-106); MAGNESIUM LEVEL 1.6 MG/DL (1.8-2.4); PHOSPHORUS LEVEL 3.4 MG/DL (2.4-5.1); POTASSIUM SERUM 3.7 MMOL/L (3.5-5.1); SODIUM LEVEL 137 MMOL/L (136-145)
[2022-11-27 10:35] VITALS: BP 124/61; O2SAT 96
== END 2022-11-27 11:35 ==
LOC: M INFU 08:35
PROVIDERS: ATTEND Family Medicine
DX: E83.42 Hypomagnesemia (principal); Z91.041 Radiographic dye allergy status; Z88.0 Allergy status to penicillin; Z88.2 Allergy status to sulfonamides; Z88.1 Allergy status to other antibiotic agents; Z88.5 Allergy status to narcotic agent; Z88.3 Allergy status to other anti-infective agents; Z88.8 Allergy status to other drugs, medicaments and biological substances
CPT/HCPCS: 36591; 80069; 83735; 85027; 96365; 96366; J3475

== ENCOUNTER → 2022-11-29 | Outpatient (CLI) | payer OTHER | LOC: M PAIN 15:15 | PROVIDERS: ATTEND Anesthesiology | DX: M79.10 Myalgia, unspecified site (principal); M54.2 Cervicalgia; M54.6 Pain in thoracic spine; G89.29 Other chronic pain; E11.40 Type 2 diabetes mellitus with diabetic neuropathy, unspecified; J45.909 Unspecified asthma, uncomplicated; Z96.89 Presence of other specified functional implants; Z88.0 Allergy status to penicillin; Z88.1 Allergy status to other antibiotic agents; Z88.2 Allergy status to sulfonamides; Z88.3 Allergy status to other anti-infective agents; Z88.4 Allergy status to anesthetic agent; Z88.5 Allergy status to narcotic agent; Z88.6 Allergy status to analgesic agent; Z88.8 Allergy status to other drugs, medicaments and biological substances; Z91.02 Food additives allergy status; Z91.040 Latex allergy status; Z91.041 Radiographic dye allergy status; Z79.4 Long term (current) use of insulin; Z79.85 Long-term (current) use of injectable non-insulin antidiabetic drugs; Z79.899 Other long term (current) drug therapy ==

== ENCOUNTER 2022-12-04 07:00 | Outpatient (CLI) | payer OTHER ==
[~2022-12-04] VITALS: Ht 170.2 cm; Wt 75.9 kg
[2022-12-04 07:00] VITALS: BP 126/65; O2SAT 97
[2022-12-04] MEDS ORDERED: SODIUM CHLORIDE 0.9% INJ 10 ML SYR IV PRN (08:00)
[2022-12-04] MEDS ORDERED: MAG SULF 1GM/100ML (MAG RUN) IV ONE ×4 (08:00→09:30)
[2022-12-04] MEDS ORDERED: ALTEPLASE 2MG/2ML VIAL XX ONE (08:00)
[2022-12-04] MEDS ORDERED: SODIUM CHLORIDE 0.9% INJ 10 ML SYR IV SCH (09:00)
[2022-12-04 11:10] VITALS: BP 112/57; O2SAT 98
== END 2022-12-04 11:10 ==
LOC: M INFU 07:00
PROVIDERS: ATTEND Family Medicine
DX: E83.42 Hypomagnesemia (principal); Z88.3 Allergy status to other anti-infective agents; Z88.0 Allergy status to penicillin; Z88.2 Allergy status to sulfonamides; Z88.8 Allergy status to other drugs, medicaments and biological substances; Z88.1 Allergy status to other antibiotic agents; Z88.5 Allergy status to narcotic agent
CPT/HCPCS: 36592; 36593; 83735; 96365; 96366; J2997; J3475

== ENCOUNTER 2022-12-11 07:25 | Outpatient (CLI) | payer OTHER ==
[~2022-12-11] VITALS: Ht 167.6 cm; Wt 72.7 kg
[2022-12-11 07:30] VITALS: BP 107/61; O2SAT 98
[2022-12-11] MEDS ORDERED: MAG SULF 1GM/100ML (MAG RUN) IV ONE ×2 (08:00)
[2022-12-11] MEDS ORDERED: SODIUM CHLORIDE 0.9% INJ 10 ML SYR IV PRN (08:00)
[2022-12-11] MEDS: MAG SULF 1GM/100ML (MAG RUN) IV SCH ×6 (08:54→10:57)
[2022-12-11 10:00] VITALS: BP 110/70; O2SAT 96
[2022-12-11 11:00] VITALS: BP 112/68; O2SAT 95
[2022-12-11 12:00] VITALS: BP 110/66; O2SAT 98
[2022-12-11 12:05] VITALS: BP 110/66; O2SAT 97
== END 2022-12-11 12:10 ==
LOC: M INFU 07:25
PROVIDERS: ATTEND Family Medicine
DX: E83.42 Hypomagnesemia (principal); Z88.3 Allergy status to other anti-infective agents; Z88.0 Allergy status to penicillin; Z88.2 Allergy status to sulfonamides; Z88.8 Allergy status to other drugs, medicaments and biological substances; Z88.5 Allergy status to narcotic agent; Z91.018 Allergy to other foods
CPT/HCPCS: 36591; 83735; 96365; 96366; 96523; J3475

== ENCOUNTER 2022-12-18 07:15 | Outpatient (CLI) | payer OTHER ==
[~2022-12-18] VITALS: Ht 167.6 cm; Wt 72.6 kg
[2022-12-18 07:15] VITALS: BP 121/70; O2SAT 97
[2022-12-18] MEDS ORDERED: MAG SULF 1GM/100ML (MAG RUN) IV ONE ×2 (08:00)
[2022-12-18] MEDS: MAG SULF 1GM/100ML (MAG RUN) IV SCH ×6 (08:27→10:27)
[2022-12-18] MEDS ORDERED: SODIUM CHLORIDE 0.9% INJ 10 ML SYR IV PRN (10:40)
[2022-12-18 11:35] VITALS: BP 115/62; O2SAT 95
[2022-12-19] MEDS ORDERED: SODIUM CHLORIDE 0.9% INJ 10 ML SYR IV SCH (09:00)
== END 2022-12-18 11:35 ==
LOC: M INFU 07:15
PROVIDERS: ATTEND Family Medicine
DX: E83.42 Hypomagnesemia (principal); Z88.0 Allergy status to penicillin; Z88.1 Allergy status to other antibiotic agents; Z88.2 Allergy status to sulfonamides; Z88.8 Allergy status to other drugs, medicaments and biological substances; Z91.041 Radiographic dye allergy status; Z91.09 Other allergy status, other than to drugs and biological substances
CPT/HCPCS: 36591; 83735; 96365; 96366; J3475

== ENCOUNTER 2022-12-18 12:46 | Emergency (ER) | payer OTHER ==
[~2022-12-18] VITALS: Ht 167.6 cm; Wt 72.7 kg
[2022-12-18 13:09] VITALS: BP 118/58; TEMP 97.8; O2SAT 96
== END 2022-12-18 17:53 | disposition home or self-care (01) ==
LOC: M ED 12:46 → EDBD 12:46 → M ED 17:53
DX: S80.211A Abrasion, right knee, initial encounter (principal); S80.212A Abrasion, left knee, initial encounter; W19.XXXA Unspecified fall, initial encounter; I10 Essential (primary) hypertension; E11.9 Type 2 diabetes mellitus without complications; J45.909 Unspecified asthma, uncomplicated; E78.5 Hyperlipidemia, unspecified; Z87.442 Personal history of urinary calculi; Z91.041 Radiographic dye allergy status; Z88.0 Allergy status to penicillin; Z88.2 Allergy status to sulfonamides; Z88.6 Allergy status to analgesic agent; Z88.8 Allergy status to other drugs, medicaments and biological substances; Z91.048 Other nonmedicinal substance allergy status

== ENCOUNTER 2022-12-25 07:10 | Outpatient (CLI) | payer OTHER ==
[~2022-12-25] VITALS: Ht 167.6 cm; Wt 72.7 kg
[2022-12-25 07:10] VITALS: BP 128/62; O2SAT 97
[~2022-12-25 07:10] MED LIST changes: +SODIUM CHLORIDE 0.9% INJ 10 ML SYR IV PRN
[2022-12-25] MEDS ORDERED: MAG SULF 1GM/100ML (MAG RUN) IV ONE ×2 (07:30)
[2022-12-25] MEDS: MAG SULF 1GM/100ML (MAG RUN) IV SCH ×6 (08:29→10:23)
[2022-12-25] MEDS ORDERED: SODIUM CHLORIDE 0.9% INJ 10 ML SYR IV SCH (09:00)
[2022-12-25 11:35] VITALS: BP 129/58; O2SAT 96
== END 2022-12-25 11:35 | disposition home or self-care (01) ==
LOC: M INFU 07:10
PROVIDERS: ATTEND Family Medicine
DX: E83.42 Hypomagnesemia (principal); Z88.0 Allergy status to penicillin; Z88.1 Allergy status to other antibiotic agents; Z88.2 Allergy status to sulfonamides; Z88.6 Allergy status to analgesic agent; Z91.041 Radiographic dye allergy status; Z91.09 Other allergy status, other than to drugs and biological substances
CPT/HCPCS: 36591; 83735; 96365; 96366; J3475

== ENCOUNTER → 2022-12-31 | Outpatient (CLI) | payer OTHER ==
[~2022-12-31] MED LIST changes: -SODIUM CHLORIDE 0.9% INJ 10 ML SYR IV PRN
== END ==
LOC: M WHC 12:53
PROVIDERS: ATTEND Family Medicine
DX: Z12.31 Encounter for screening mammogram for malignant neoplasm of breast (principal)

== ENCOUNTER → 2023-01-14 | Outpatient (CLI) | payer OTHER ==
[~2023-01-14] MED LIST changes: +TRIAMCINOLONE ACETONIDE SUSP 40MG/ML 1ML VIAL As Ordered ONE
== END ==
LOC: M PAIN 11:00
PROVIDERS: ATTEND Anesthesiology
DX: M79.18 Myalgia, other site (principal); G89.29 Other chronic pain; E11.9 Type 2 diabetes mellitus without complications; Z96.89 Presence of other specified functional implants; Z80.8 Family history of malignant neoplasm of other organs or systems; Z88.0 Allergy status to penicillin; Z88.1 Allergy status to other antibiotic agents; Z88.2 Allergy status to sulfonamides; Z88.3 Allergy status to other anti-infective agents; Z88.4 Allergy status to anesthetic agent; Z88.5 Allergy status to narcotic agent; Z88.6 Allergy status to analgesic agent; Z88.8 Allergy status to other drugs, medicaments and biological substances; Z91.02 Food additives allergy status; Z91.040 Latex allergy status; Z91.041 Radiographic dye allergy status; Z79.4 Long term (current) use of insulin; Z79.899 Other long term (current) drug therapy
CPT/HCPCS: 20553; J0665; J3301

== ENCOUNTER 2023-01-15 07:00 | Outpatient (CLI) | payer OTHER ==
[~2023-01-15] VITALS: Ht 167.6 cm; Wt 77.2 kg
[2023-01-15 07:00] VITALS: BP 127/70; O2SAT 94
[~2023-01-15 07:00] MED LIST changes: -TRIAMCINOLONE ACETONIDE SUSP 40MG/ML 1ML VIAL As Ordered ONE
[2023-01-15] MEDS ORDERED: SODIUM CHLORIDE 0.9% INJ 10 ML SYR IV PRN (07:15)
[2023-01-15] MEDS ORDERED: MAG SULF 1GM/100ML (MAG RUN) IV ONE ×2 (07:15)
[2023-01-15] MEDS: MAG SULF 1GM/100ML (MAG RUN) IV SCH ×6 (08:47→10:48)
[2023-01-15] MEDS ORDERED: SODIUM CHLORIDE 0.9% INJ 10 ML SYR IV SCH (09:00)
[2023-01-15 12:00] VITALS: BP 129/63; O2SAT 96
== END 2023-01-15 12:00 ==
LOC: M INFU 07:00
PROVIDERS: ATTEND Family Medicine
DX: E83.42 Hypomagnesemia (principal); Z88.0 Allergy status to penicillin; Z88.2 Allergy status to sulfonamides; Z88.1 Allergy status to other antibiotic agents; Z88.5 Allergy status to narcotic agent; Z88.8 Allergy status to other drugs, medicaments and biological substances; Z88.3 Allergy status to other anti-infective agents
CPT/HCPCS: 36591; 83735; 96365; 96366; J3475

== ENCOUNTER → 2023-01-21 | Outpatient (REF) | payer OTHER ==
[~2023-01-21] MED LIST changes: -CEFD300C41 PO; +CEFD300C42 PO
== END ==
LOC: M SFHCPLAZ 16:55
PROVIDERS: ATTEND Student in an Organized Health Care Education/Training Program
DX: R21 Rash and other nonspecific skin eruption (principal)

== ENCOUNTER 2023-01-22 06:45 | Outpatient (CLI) | payer OTHER ==
[~2023-01-22] VITALS: Ht 167.6 cm; Wt 77.2 kg
[~2023-01-22 06:45] MED LIST changes: +SODIUM CHLORIDE 0.9% INJ 10 ML SYR IV PRN
[2023-01-22 06:54] VITALS: BP 133/65; O2SAT 95
[2023-01-22] MEDS ORDERED: MAG SULF 1GM/100ML (MAG RUN) IV ONE ×4 (07:30→08:30)
[2023-01-22] MEDS ORDERED: SODIUM CHLORIDE 0.9% INJ 10 ML SYR IV SCH (09:00)
[2023-01-22 09:30] VITALS: BP 121/63; O2SAT 98
== END 2023-01-22 09:30 ==
LOC: M INFU 06:45
PROVIDERS: ATTEND Family Medicine
DX: E83.42 Hypomagnesemia (principal); Z88.0 Allergy status to penicillin; Z88.2 Allergy status to sulfonamides; Z88.1 Allergy status to other antibiotic agents; Z88.5 Allergy status to narcotic agent; Z88.3 Allergy status to other anti-infective agents; Z88.8 Allergy status to other drugs, medicaments and biological substances
CPT/HCPCS: 36591; 83735; 96365; 96366; J3475

== ENCOUNTER 2023-01-29 06:55 | Outpatient (CLI) | payer OTHER ==
[~2023-01-29] VITALS: Ht 167.6 cm; Wt 72.7 kg
[~2023-01-29 06:55] MED LIST changes: -SODIUM CHLORIDE 0.9% INJ 10 ML SYR IV PRN
[2023-01-29 07:08] VITALS: BP 138/74; O2SAT 96
[2023-01-29] MEDS ORDERED: SODIUM CHLORIDE 0.9% INJ 10 ML SYR IV PRN (07:35)
[2023-01-29] MEDS ORDERED: MAG SULF 1GM/100ML (MAG RUN) IV ONE ×4 (07:35→08:30)
[2023-01-29] MEDS ORDERED: SODIUM CHLORIDE 0.9% INJ 10 ML SYR IV SCH (09:00)
[2023-01-29 09:58] VITALS: BP 140/70; O2SAT 95
== END 2023-01-29 10:00 ==
LOC: M INFU 06:55
PROVIDERS: ATTEND Family Medicine
DX: E83.42 Hypomagnesemia (principal); Z88.3 Allergy status to other anti-infective agents; Z91.041 Radiographic dye allergy status; Z88.0 Allergy status to penicillin; Z88.2 Allergy status to sulfonamides; Z88.8 Allergy status to other drugs, medicaments and biological substances; Z88.1 Allergy status to other antibiotic agents; Z88.5 Allergy status to narcotic agent
CPT/HCPCS: 36591; 83735; 96365; 96366; J3475

== ENCOUNTER 2023-02-04 01:23 | Emergency (ER) | payer OTHER ==
[~2023-02-04] VITALS: Ht 167.6 cm; Wt 72.7 kg
[2023-02-04 02:43] LABS: ALKALINE PHOSPHATASE 106 U/L (46-116); ALT/SGPT 39 U/L (7.0-40); AST/SGOT 35 U/L (<34); BILIRUBIN,DIRECT < 0.1 MG/DL (<0.4); BILIRUBIN,TOTAL 0.2 MG/DL (0.3-1.2); BLOOD UREA NITROGEN 16 MG/DL (9-23); CALCIUM LEVEL 9.3 MG/DL (8.3-10.6); CARBON DIOXIDE LEVEL 24 MMOL/L (20-31); CHLORIDE LEVEL 106 MMOL/L (98-107); CK-MB VALUE MASS 1.1 NG/ML (<3.6); CPK CREATINE PHOSPHOKINASE 63 U/L (34-145); CREATININE FOR GFR 0.38 MG/DL (0.55-1.30); GLOMERULAR FILTRATION RATE > 60.0 (>45); GLUCOSE, FASTING 324 MG/DL (74-106); MB/CK RELATIVE INDEX 1.74 (< OR =4); POTASSIUM SERUM 4.2 MMOL/L (3.5-5.1); SODIUM LEVEL 138 MMOL/L (136-145); THYROID STIMULATING HORMONE 3.884 uIU/ML (0.55-4.78)
[2023-02-04] MEDS ORDERED: methylPREDNISolone 125MG 2ML VIAL IV ONE (03:40)
[2023-02-04] MEDS: IPRATROPIUM 0.5MG/ALBUTEROL 2.5MG INH SOL UD 3ML (DUONEB) NEB PRN ×2 (03:54→03:55)
[2023-02-04 04:07] LABS: PROCALCITONIN 0.17 ng/ml
[2023-02-04] MEDS ORDERED: NS 500 ML IV ONE (06:30)
[2023-02-04] MEDS ORDERED: PRED20TA PO (07:21)
[2023-02-04 07:28] VITALS: BP 104/80; TEMP 98.2; O2SAT 96
[2023-02-04 16:59] LABS: HEMATOCRIT 38.3 % (34.0-40.0); HEMOGLOBIN 12.2 g/dl (11.5-13.5); MEAN CORPUSCULAR HEMOGLOBIN 31.4 pg (27.0-34.0); MEAN CORPUSCULAR HGB CONC 31.9 g/dl (31.0-36.0); MEAN CORPUSCULAR VOLUME 98.5 fl (75.0-87.0); RED BLOOD COUNT 3.89 10^6/uL (3.90-5.30); WHITE BLOOD COUNT 7.3 10^3/uL (4.2-11.0)
[2023-02-04 17:00] LABS: BASO % 0.3 % (0.0-2.5); EOS # 0.1 10^3/uL (0.0-0.70); EOS % 1.1 % (0.0-7.0); LYMPH # 1.8 10^3/UL (2.00-8.00); LYMPH % 24.3 % (25.0-40.0); MONO # 0.7 10^3/uL (0.0-0.90); MONO % 9.7 % (3.0-8.0); NEUTROPHILS # 4.7 10^3/uL (1.50-8.50); NEUTROPHILS % 64.3 % (37.0-80.0); PLATELET COUNT, AUTOMATED 167 10^3/uL (150-450)
[2023-02-04] MEDS ORDERED: DOXY-443 PO (20:41)
== END 2023-02-04 08:08 | disposition home or self-care (01) ==
LOC: EDBD 01:23 → M ED 01:23
DX: J44.1 Chronic obstructive pulmonary disease with (acute) exacerbation (principal); R00.0 Tachycardia, unspecified; E11.9 Type 2 diabetes mellitus without complications; E78.5 Hyperlipidemia, unspecified; F17.200 Nicotine dependence, unspecified, uncomplicated; Z86.73 Personal history of transient ischemic attack (TIA), and cerebral infarction without residual deficits; Z88.0 Allergy status to penicillin; Z88.1 Allergy status to other antibiotic agents; Z88.2 Allergy status to sulfonamides; Z88.6 Allergy status to analgesic agent; Z91.048 Other nonmedicinal substance allergy status; Z91.041 Radiographic dye allergy status; Z91.018 Allergy to other foods; Z79.52 Long term (current) use of systemic steroids; Z79.84 Long term (current) use of oral hypoglycemic drugs; Z79.899 Other long term (current) drug therapy
CPT/HCPCS: 71045; 80048; 80076; 82550; 82553; 83605; 83880; 84145; 84443; 85025; 87040; 87486; 87581; 87633; 87798; 93005; 93041; 94640; 94760; 96361; 96374; 99285; J2930

== ENCOUNTER 2023-02-04 16:49 | Emergency (ER) | payer OTHER ==
[~2023-02-04] VITALS: Ht 167.6 cm; Wt 72.7 kg
[2023-02-04] MEDS ORDERED: ALBUTEROL 90 MCG/ACT 8GM HFA INHALER INH ONE (19:00)
[2023-02-04] MEDS ORDERED: DOXY-443 PO (20:41)
[2023-02-04 20:47] VITALS: BP 144/64; TEMP 97.9; O2SAT 96
== END 2023-02-04 21:27 | disposition home or self-care (01) ==
LOC: M ED 16:49 → EDBD 16:49 → M ED 21:27
DX: J44.1 Chronic obstructive pulmonary disease with (acute) exacerbation (principal); J45.909 Unspecified asthma, uncomplicated; E78.5 Hyperlipidemia, unspecified; Z79.52 Long term (current) use of systemic steroids; Z79.02 Long term (current) use of antithrombotics/antiplatelets; Z79.83 Long term (current) use of bisphosphonates; Z79.899 Other long term (current) drug therapy; Z88.0 Allergy status to penicillin; Z88.2 Allergy status to sulfonamides; Z88.6 Allergy status to analgesic agent; Z88.8 Allergy status to other drugs, medicaments and biological substances; Z91.041 Radiographic dye allergy status; Z91.048 Other nonmedicinal substance allergy status

== ENCOUNTER 2023-02-12 07:28 | Outpatient (CLI) | payer OTHER ==
[~2023-02-12] VITALS: Ht 167.6 cm; Wt 72.7 kg
[~2023-02-12 07:28] MED LIST changes: +SODIUM CHLORIDE 0.9% INJ 10 ML SYR IV PRN
[2023-02-12] MEDS ORDERED: MAG SULF 1GM/100ML (MAG RUN) IV ONE ×4 (07:30→08:40)
[2023-02-12 07:52] VITALS: BP 126/71; O2SAT 98
[2023-02-12] MEDS ORDERED: SODIUM CHLORIDE 0.9% INJ 10 ML SYR IV SCH (09:00)
[2023-02-12 09:50] VITALS: BP 126/61; O2SAT 95
== END 2023-02-12 09:50 ==
LOC: M INFU 07:28
PROVIDERS: ATTEND Family Medicine
DX: E83.42 Hypomagnesemia (principal); Z88.3 Allergy status to other anti-infective agents; Z88.0 Allergy status to penicillin; Z88.2 Allergy status to sulfonamides; Z88.8 Allergy status to other drugs, medicaments and biological substances; Z88.1 Allergy status to other antibiotic agents; Z88.5 Allergy status to narcotic agent
CPT/HCPCS: 36591; 83735; 96365; 96366; J3475

== ENCOUNTER 2023-02-19 07:25 | Outpatient (CLI) | payer OTHER ==
[~2023-02-19] VITALS: Ht 167.6 cm; Wt 71.7 kg
[2023-02-19 07:25] VITALS: BP 106/59; O2SAT 95
[2023-02-19] MEDS ORDERED: MAG SULF 1GM/100ML (MAG RUN) IV ONE ×2 (07:30)
[2023-02-19] MEDS: MAG SULF 1GM/100ML (MAG RUN) IV SCH ×6 (08:47→10:39)
[2023-02-19] MEDS ORDERED: SODIUM CHLORIDE 0.9% INJ 10 ML SYR IV SCH (09:00)
[2023-02-19 11:31] VITALS: BP 123/71; O2SAT 94
== END 2023-02-19 11:50 ==
LOC: M INFU 07:25
PROVIDERS: ATTEND Family Medicine
DX: E83.42 Hypomagnesemia (principal); Z88.3 Allergy status to other anti-infective agents; Z88.0 Allergy status to penicillin; Z88.2 Allergy status to sulfonamides; Z88.8 Allergy status to other drugs, medicaments and biological substances; Z88.1 Allergy status to other antibiotic agents; Z88.5 Allergy status to narcotic agent
CPT/HCPCS: 36591; 83735; 96365; 96366; J3475

== ENCOUNTER 2023-02-26 06:55 | Outpatient (CLI) | payer OTHER ==
[~2023-02-26] VITALS: Ht 167.6 cm; Wt 72.7 kg
[2023-02-26 06:55] VITALS: BP 174/80; O2SAT 96
[~2023-02-26 06:55] MED LIST changes: -SODIUM CHLORIDE 0.9% INJ 10 ML SYR IV PRN
[2023-02-26] MEDS ORDERED: SODIUM CHLORIDE 0.9% INJ 10 ML SYR IV PRN (07:15)
[2023-02-26] MEDS ORDERED: MAG SULF 1GM/100ML (MAG RUN) IV ONE ×4 (07:15→08:05)
[2023-02-26] MEDS ORDERED: SODIUM CHLORIDE 0.9% INJ 10 ML SYR IV SCH (09:00)
[2023-02-26 09:45] VITALS: BP 126/70; O2SAT 97
== END 2023-02-26 09:45 ==
LOC: M INFU 06:55
PROVIDERS: ATTEND Family Medicine
DX: E83.42 Hypomagnesemia (principal); Z88.0 Allergy status to penicillin; Z88.1 Allergy status to other antibiotic agents; Z88.2 Allergy status to sulfonamides; Z88.6 Allergy status to analgesic agent; Z88.8 Allergy status to other drugs, medicaments and biological substances; Z91.041 Radiographic dye allergy status; Z91.048 Other nonmedicinal substance allergy status
CPT/HCPCS: 36591; 83735; 96365; 96366; J3475

== ENCOUNTER 2023-03-04 11:10 | Emergency (ER) | payer OTHER ==
[~2023-03-04] VITALS: Ht 170.2 cm; Wt 72.7 kg
[2023-03-04] MEDS ORDERED: POLY510P14 PO (13:39)
[2023-03-04 15:44] VITALS: BP 134/76; TEMP 97.6; O2SAT 100
== END 2023-03-04 15:48 | disposition home or self-care (01) ==
LOC: M ED 11:10
DX: R10.84 Generalized abdominal pain (principal); E11.9 Type 2 diabetes mellitus without complications; K46.0 Unspecified abdominal hernia with obstruction, without gangrene; Z91.041 Radiographic dye allergy status; Z88.0 Allergy status to penicillin; Z88.2 Allergy status to sulfonamides; Z88.5 Allergy status to narcotic agent; Z88.6 Allergy status to analgesic agent; Z79.52 Long term (current) use of systemic steroids; Z79.4 Long term (current) use of insulin; Z79.83 Long term (current) use of bisphosphonates; Z79.899 Other long term (current) drug therapy

== ENCOUNTER 2023-03-05 07:00 | Outpatient (CLI) | payer OTHER ==
[~2023-03-05] VITALS: Ht 167.6 cm; Wt 72.7 kg
[2023-03-05 07:00] VITALS: BP 118/72; O2SAT 95
[~2023-03-05 07:00] MED LIST changes: +POLY510P14 PO; +SODIUM CHLORIDE 0.9% INJ 10 ML SYR IV PRN
[2023-03-05] MEDS ORDERED: MAG SULF 1GM/100ML (MAG RUN) IV ONE ×2 (07:30)
[2023-03-05] MEDS: MAG SULF 1GM/100ML (MAG RUN) IV SCH ×6 (08:14→10:17)
[2023-03-05] MEDS ORDERED: SODIUM CHLORIDE 0.9% INJ 10 ML SYR IV SCH (09:00)
[2023-03-05 11:25] VITALS: BP 124/63; O2SAT 94
== END 2023-03-05 11:25 ==
LOC: M INFU 07:00
PROVIDERS: ATTEND Family Medicine
DX: E83.42 Hypomagnesemia (principal); Z88.3 Allergy status to other anti-infective agents; Z88.0 Allergy status to penicillin; Z88.2 Allergy status to sulfonamides; Z88.8 Allergy status to other drugs, medicaments and biological substances; Z88.1 Allergy status to other antibiotic agents; Z88.5 Allergy status to narcotic agent
CPT/HCPCS: 83735; 96365; 96366; J3475

== ENCOUNTER → 2023-03-12 | Outpatient (CLI) | payer OTHER ==
[~2023-03-12] VITALS: Ht 167.6 cm; Wt 72.7 kg
[~2023-03-12] MED LIST changes: +MAG SULF 1GM/100ML (MAG RUN) IV ONE; +SODIUM CHLORIDE 0.9% INJ 10 ML SYR IV SCH
[2023-03-12 06:50] VITALS: BP 111/65; O2SAT 95
[2023-03-12 09:17] VITALS: BP 126/58; O2SAT 93
== END ==
LOC: M INFU 06:22
PROVIDERS: ATTEND Family Medicine
DX: E83.42 Hypomagnesemia (principal); Z88.0 Allergy status to penicillin; Z88.2 Allergy status to sulfonamides; Z88.1 Allergy status to other antibiotic agents; Z88.8 Allergy status to other drugs, medicaments and biological substances; Z88.5 Allergy status to narcotic agent; Z88.3 Allergy status to other anti-infective agents
CPT/HCPCS: 36591; 83735; 96365; 96366; J3475

== ENCOUNTER 2023-03-19 06:55 | Outpatient (CLI) | payer OTHER ==
[~2023-03-19] VITALS: Ht 167.6 cm; Wt 72.7 kg
[2023-03-19 06:55] VITALS: BP 130/69; O2SAT 94
[~2023-03-19 06:55] MED LIST changes: +CEFD1CAP9 PO; -CEFD300C42 PO; -MAG SULF 1GM/100ML (MAG RUN) IV ONE; -SODIUM CHLORIDE 0.9% INJ 10 ML SYR IV PRN; -SODIUM CHLORIDE 0.9% INJ 10 ML SYR IV SCH
[2023-03-19] MEDS ORDERED: SODIUM CHLORIDE 0.9% INJ 10 ML SYR IV PRN (07:15)
[2023-03-19] MEDS ORDERED: MAG SULF 1GM/100ML (MAG RUN) IV ONE ×2 (07:30)
[2023-03-19] MEDS: MAG SULF 1GM/100ML (MAG RUN) IV SCH ×6 (08:26→10:31)
[2023-03-19 11:45] VITALS: BP 131/62; O2SAT 96
== END 2023-03-19 11:45 ==
LOC: M INFU 06:55
PROVIDERS: ATTEND Family Medicine
DX: E83.42 Hypomagnesemia (principal); Z88.3 Allergy status to other anti-infective agents; Z88.0 Allergy status to penicillin; Z88.2 Allergy status to sulfonamides; Z88.8 Allergy status to other drugs, medicaments and biological substances; Z88.1 Allergy status to other antibiotic agents; Z88.5 Allergy status to narcotic agent
CPT/HCPCS: 36591; 83735; 96365; 96366; J3475

== ENCOUNTER 2023-03-26 06:55 | Outpatient (CLI) | payer OTHER ==
[~2023-03-26] VITALS: Ht 167.6 cm; Wt 73.0 kg
[2023-03-26 07:00] VITALS: BP 130/70; O2SAT 18; O2SAT 97
[2023-03-26] MEDS ORDERED: MAG SULF 1GM/100ML (MAG RUN) IV ONE ×2 (08:00)
[2023-03-26] MEDS ORDERED: SODIUM CHLORIDE 0.9% INJ 10 ML SYR IV PRN (08:05)
[2023-03-26] MEDS: MAG SULF 1GM/100ML (MAG RUN) IV SCH ×6 (08:41→10:43)
[2023-03-26 09:00] VITALS: BP 116/64; O2SAT 98
[2023-03-26] MEDS ORDERED: SODIUM CHLORIDE 0.9% INJ 10 ML SYR IV SCH (09:00)
[2023-03-26 11:50] VITALS: BP 124/68; O2SAT 16; O2SAT 96
== END 2023-03-26 11:50 | disposition home or self-care (01) ==
LOC: M INFU 06:55
PROVIDERS: ATTEND Family Medicine
DX: E83.42 Hypomagnesemia (principal); Z88.0 Allergy status to penicillin; Z88.2 Allergy status to sulfonamides; Z88.1 Allergy status to other antibiotic agents; Z88.8 Allergy status to other drugs, medicaments and biological substances; Z88.5 Allergy status to narcotic agent; Z88.3 Allergy status to other anti-infective agents
CPT/HCPCS: 36591; 83735; 96365; 96366; J3475

== ENCOUNTER 2023-04-02 07:05 | Outpatient (CLI) | payer OTHER ==
[~2023-04-02] VITALS: Ht 167.6 cm; Wt 73.0 kg
[2023-04-02 07:13] VITALS: BP 137/76; O2SAT 97
[2023-04-02] MEDS ORDERED: SODIUM CHLORIDE 0.9% INJ 10 ML SYR IV PRN (07:15)
[2023-04-02] MEDS ORDERED: MAG SULF 1GM/100ML (MAG RUN) IV ONE ×2 (07:30)
[2023-04-02] MEDS: MAG SULF 1GM/100ML (MAG RUN) IV SCH ×6 (08:15→10:15)
[2023-04-02] MEDS ORDERED: SODIUM CHLORIDE 0.9% INJ 10 ML SYR IV SCH (09:00)
[2023-04-02 11:20] VITALS: BP 126/68; O2SAT 97
== END 2023-04-02 11:20 | disposition home or self-care (01) ==
LOC: M INFU 07:05
PROVIDERS: ATTEND Family Medicine
DX: E83.42 Hypomagnesemia (principal); Z88.0 Allergy status to penicillin; Z88.2 Allergy status to sulfonamides; Z88.1 Allergy status to other antibiotic agents; Z88.5 Allergy status to narcotic agent; Z88.3 Allergy status to other anti-infective agents; Z88.8 Allergy status to other drugs, medicaments and biological substances
CPT/HCPCS: 36591; 83735; 96365; 96366; J3475

== ENCOUNTER 2023-04-09 06:55 | Outpatient (CLI) | payer OTHER ==
[~2023-04-09] VITALS: Ht 170.2 cm; Wt 72.7 kg
[2023-04-09] MEDS: SODIUM CHLORIDE 0.9% INJ 10 ML SYR IV SCH ×2 (07:27→11:14)
[2023-04-09 07:30] VITALS: BP 101/74; O2SAT 94
[2023-04-09] MEDS ORDERED: MAG SULF 1GM/100ML (MAG RUN) IV ONE ×2 (07:30)
[2023-04-09] MEDS ORDERED: SODIUM CHLORIDE 0.9% INJ 10 ML SYR IV PRN (07:30)
[2023-04-09] MEDS: MAG SULF 1GM/100ML (MAG RUN) IV SCH ×10 (08:16→10:07)
[2023-04-09 11:25] VITALS: BP 109/58; O2SAT 94
== END 2023-04-09 11:25 | disposition home or self-care (01) ==
LOC: M INFU 06:55
PROVIDERS: ATTEND Family Medicine
DX: E83.42 Hypomagnesemia (principal); Z88.2 Allergy status to sulfonamides; Z88.3 Allergy status to other anti-infective agents; Z88.0 Allergy status to penicillin; Z88.8 Allergy status to other drugs, medicaments and biological substances; Z88.1 Allergy status to other antibiotic agents; Z88.5 Allergy status to narcotic agent
CPT/HCPCS: 36591; 83735; 96365; 96366; J3475

== ENCOUNTER 2023-04-10 22:09 | Emergency (ER) | payer OTHER ==
[~2023-04-10] VITALS: Ht 167.6 cm; Wt 73.6 kg
[2023-04-10 22:25] VITALS: TEMP 98.1
[2023-04-10 23:20] LABS: BASO % 0.6 % (0.0-1.0); EOS # 0.1 10^3/uL (0.0-0.5); EOS % 2.4 % (0.0-3.0); HEMATOCRIT 38.1 % (36.0-47.0); HEMOGLOBIN 12.2 g/dl (12.0-15.5); LYMPH # 1.3 10^3/uL (1.5-5.0); LYMPH % 25.4 % (24.0-44.0); MEAN CORPUSCULAR HEMOGLOBIN 31.4 pg (27.0-33.0); MEAN CORPUSCULAR VOLUME 98.2 fl (80.0-96.0); MONO # 0.5 10^3/uL (0.0-0.8); MONO % 10.8 % (2.0-8.0); NEUTROPHILS % 60.4 % (36.0-66.0); PLATELET COUNT, AUTOMATED 171 10^3/uL (150-450); RED BLOOD COUNT 3.88 10^6/uL (4.00-5.40); WHITE BLOOD COUNT 4.9 10^3/uL (4.0-10.0)
[2023-04-10 23:56] LABS: ALBUMIN 3.2 G/DL (3.2-5.2); ALKALINE PHOSPHATASE 109 U/L (46-116); ALT/SGPT 41 U/L (7.0-40); AST/SGOT 49 U/L (<34); BILIRUBIN,DIRECT < 0.1 MG/DL (<0.4); BILIRUBIN,TOTAL 0.2 MG/DL (0.3-1.2); BLOOD UREA NITROGEN 6 MG/DL (9-23); CALCIUM LEVEL 10.2 MG/DL (8.3-10.6); CARBON DIOXIDE LEVEL 30 MMOL/L (20-31); CHLORIDE LEVEL 99 MMOL/L (98-107); CREATININE FOR GFR 0.43 MG/DL (0.55-1.30); GLOMERULAR FILTRATION RATE > 60.0 (>45); GLUCOSE, FASTING 296 MG/DL (74-106); POTASSIUM SERUM 3.5 MMOL/L (3.5-5.1); SODIUM LEVEL 137 MMOL/L (136-145); TOTAL PROTEIN 6.9 G/DL (5.7-8.2)
[2023-04-11 01:19] VITALS: BP 114/58; O2SAT 95
[2023-04-17 20:40] LABS: CHOLESTEROL LEVEL 162 MG/DL (<200); CHOLESTEROL RISK RATIO 2.88 (<5); HDL CHOLESTEROL 56.1 MG/DL (>40); LDL CHOLESTEROL 48.1 MG/DL (<100); NON-HDL-C 105.9 MG/DL; TRIGLYCERIDES LEVEL 289 MG/DL (<150)
== END 2023-04-11 01:37 | disposition home or self-care (01) ==
LOC: EDBD 22:09 → M ED 22:09
DX: R05.9 Cough, unspecified (principal); J45.909 Unspecified asthma, uncomplicated; E11.9 Type 2 diabetes mellitus without complications; E78.5 Hyperlipidemia, unspecified; Z86.79 Personal history of other diseases of the circulatory system; Z88.0 Allergy status to penicillin; Z88.1 Allergy status to other antibiotic agents; Z88.2 Allergy status to sulfonamides; Z88.6 Allergy status to analgesic agent; Z91.041 Radiographic dye allergy status; Z91.048 Other nonmedicinal substance allergy status

== ENCOUNTER 2023-04-11 11:27 | Emergency (ER) | payer OTHER ==
[~2023-04-11] VITALS: Ht 170.2 cm; Wt 72.7 kg
[2023-04-11] MEDS ORDERED: HYDROmorphone 2 MG TAB PO ONE (12:30)
[2023-04-11 12:59] LABS: HEMOGLOBIN 12.1 g/dl (12.0-15.5)
[2023-04-11 13:33] VITALS: BP 116/58
[2023-04-11 13:45] VITALS: O2SAT 93
[2023-04-11 14:20] VITALS: TEMP 97.2
== END 2023-04-11 14:22 | disposition home or self-care (01) ==
LOC: EDUNIT# 11:27 → M ED 11:27 → EDBD 11:27 → M ED 14:22
DX: R10.9 Unspecified abdominal pain (principal); Z91.041 Radiographic dye allergy status; Z91.018 Allergy to other foods; Z88.8 Allergy status to other drugs, medicaments and biological substances; Z88.0 Allergy status to penicillin; Z88.2 Allergy status to sulfonamides; Z88.5 Allergy status to narcotic agent

== ENCOUNTER 2023-04-30 07:58 | Outpatient (CLI) | payer OTHER ==
[~2023-04-30] VITALS: Ht 167.6 cm; Wt 73.0 kg
[~2023-04-30 07:58] MED LIST changes: +MAG SULF 1GM/100ML (MAG RUN) IV ONE; +SODIUM CHLORIDE 0.9% INJ 10 ML SYR IV PRN
[2023-04-30 08:10] VITALS: BP 109/65; O2SAT 100
[2023-04-30] MEDS ORDERED: SODIUM CHLORIDE 0.9% INJ 10 ML SYR IV SCH (09:00)
[2023-04-30] MEDS ORDERED: MAG SULF 1GM/100ML (MAG RUN) IV ONE ×2 (09:15)
[2023-04-30 10:25] VITALS: BP 118/68; O2SAT 95
== END 2023-04-30 10:30 | disposition home or self-care (01) ==
LOC: M INFU 07:58
PROVIDERS: ATTEND Family Medicine
DX: E83.42 Hypomagnesemia (principal); Z88.3 Allergy status to other anti-infective agents; Z88.0 Allergy status to penicillin; Z88.2 Allergy status to sulfonamides; Z88.8 Allergy status to other drugs, medicaments and biological substances; Z88.1 Allergy status to other antibiotic agents; Z88.5 Allergy status to narcotic agent; Z91.041 Radiographic dye allergy status
CPT/HCPCS: 36591; 83735; 96365; 96366; J3475

== ENCOUNTER 2023-05-07 07:00 | Outpatient (CLI) | payer OTHER ==
[~2023-05-07] VITALS: Ht 170.2 cm; Wt 80.9 kg
[~2023-05-07 07:00] MED LIST changes: -MAG SULF 1GM/100ML (MAG RUN) IV ONE; -SODIUM CHLORIDE 0.9% INJ 10 ML SYR IV PRN
[2023-05-07] MEDS ORDERED: MAG SULF 1GM/100ML (MAG RUN) IV ONE ×4 (07:15→08:10)
[2023-05-07] MEDS ORDERED: SODIUM CHLORIDE 0.9% INJ 10 ML SYR IV PRN (07:15)
[2023-05-07 08:11] LABS: ALBUMIN 2.9 G/DL (3.2-5.2); ALKALINE PHOSPHATASE 88 U/L (46-116); ALT/SGPT 36 U/L (7.0-40); AST/SGOT 33 U/L (<34); BILIRUBIN,TOTAL 0.3 MG/DL (0.3-1.2); BLOOD UREA NITROGEN 7 MG/DL (9-23); CALCIUM LEVEL 9.4 MG/DL (8.3-10.6); CARBON DIOXIDE LEVEL 26 MMOL/L (20-31); CHLORIDE LEVEL 109 MMOL/L (98-107); CHOLESTEROL LEVEL 104 MG/DL (<200); CHOLESTEROL RISK RATIO 1.75 (<5); CREATININE FOR GFR 0.42 MG/DL (0.55-1.30); GLOMERULAR FILTRATION RATE > 60.0 (>45); GLUCOSE, FASTING 123 MG/DL (74-106); HDL CHOLESTEROL 59.4 MG/DL (>40); LDL CHOLESTEROL 22.6 MG/DL (<100); NON-HDL-C 44.6 MG/DL; POTASSIUM SERUM 3.8 MMOL/L (3.5-5.1); SODIUM LEVEL 140 MMOL/L (136-145); TOTAL PROTEIN 6.8 G/DL (5.7-8.2); TRIGLYCERIDES LEVEL 110 MG/DL (<150)
[2023-05-07] MEDS ORDERED: SODIUM CHLORIDE 0.9% INJ 10 ML SYR IV SCH (09:00)
[2023-05-07 09:35] VITALS: BP 177/96; O2SAT 98
== END 2023-05-07 09:35 | disposition home or self-care (01) ==
LOC: M INFU 07:00
PROVIDERS: ATTEND Family Medicine
DX: E83.42 Hypomagnesemia (principal); Z91.041 Radiographic dye allergy status; Z88.0 Allergy status to penicillin; Z88.2 Allergy status to sulfonamides; Z88.1 Allergy status to other antibiotic agents; Z88.5 Allergy status to narcotic agent; Z88.8 Allergy status to other drugs, medicaments and biological substances; Z88.3 Allergy status to other anti-infective agents
CPT/HCPCS: 36591; 80053; 80061; 82172; 83010; 83735; 83883; 96365; 96366; J3475

== ENCOUNTER 2023-05-14 06:45 | Outpatient (CLI) | payer OTHER ==
[~2023-05-14] VITALS: Ht 170.2 cm; Wt 80.9 kg
[2023-05-14 06:53] VITALS: BP 130/72; O2SAT 96
[2023-05-14] MEDS ORDERED: MAG SULF 1GM/100ML (MAG RUN) IV ONE ×4 (07:00→08:05)
[2023-05-14] MEDS ORDERED: SODIUM CHLORIDE 0.9% INJ 10 ML SYR IV SCH (09:00)
[2023-05-14 09:15] VITALS: BP 122/59; O2SAT 96
== END 2023-05-14 19:15 ==
LOC: M INFU 06:45
PROVIDERS: ATTEND Family Medicine
DX: E83.42 Hypomagnesemia (principal); Z91.041 Radiographic dye allergy status; Z88.0 Allergy status to penicillin; Z88.2 Allergy status to sulfonamides; Z88.1 Allergy status to other antibiotic agents; Z88.5 Allergy status to narcotic agent; Z88.3 Allergy status to other anti-infective agents; Z88.8 Allergy status to other drugs, medicaments and biological substances
CPT/HCPCS: 36591; 83735; 96365; 96366; J3475

== ENCOUNTER → 2023-05-15 | Outpatient (CLI) | payer OTHER | LOC: M WHC 07:47 | PROVIDERS: ATTEND Student in an Organized Health Care Education/Training Program | DX: R10.11 Right upper quadrant pain (principal); K76.0 Fatty (change of) liver, not elsewhere classified; R16.0 Hepatomegaly, not elsewhere classified ==

== ENCOUNTER 2023-05-21 08:50 | Outpatient (CLI) | payer OTHER ==
[~2023-05-21] VITALS: Ht 167.6 cm; Wt 80.9 kg
[2023-05-21] MEDS: MAG SULF 1GM/100ML (MAG RUN) IV ONE ×2 (07:00→08:03)
[2023-05-21 07:08] VITALS: BP 151/72; O2SAT 96
[2023-05-21] MEDS: SODIUM CHLORIDE 0.9% INJ 10 ML SYR IV SCH (07:10)
[~2023-05-21 08:50] MED LIST changes: +SODIUM CHLORIDE 0.9% INJ 10 ML SYR IV PRN
[2023-05-21 09:15] VITALS: BP 123/65; O2SAT 97
== END 2023-05-21 09:15 ==
LOC: M INFU 08:50
PROVIDERS: ATTEND Family Medicine
DX: E83.42 Hypomagnesemia (principal); Z91.041 Radiographic dye allergy status; Z88.3 Allergy status to other anti-infective agents; Z88.0 Allergy status to penicillin; Z88.2 Allergy status to sulfonamides; Z88.8 Allergy status to other drugs, medicaments and biological substances; Z88.1 Allergy status to other antibiotic agents; Z88.5 Allergy status to narcotic agent
CPT/HCPCS: 36591; 83735; 96365; 96366; J3475

== ENCOUNTER → 2023-05-22 | Outpatient (REF) | payer OTHER ==
[~2023-05-22] MED LIST changes: -SODIUM CHLORIDE 0.9% INJ 10 ML SYR IV PRN
== END ==
LOC: M SFHCPLAZ 10:21
PROVIDERS: ATTEND Student in an Organized Health Care Education/Training Program
DX: N39.0 Urinary tract infection, site not specified (principal)

== ENCOUNTER 2023-05-28 07:00 | Outpatient (CLI) | payer OTHER ==
[~2023-05-28] VITALS: Ht 170.2 cm; Wt 72.7 kg
[~2023-05-28 07:00] MED LIST changes: +GAS125CH PO; -GAS125CH10 PO
[2023-05-28 07:12] VITALS: BP 126/68; O2SAT 95
[2023-05-28] MEDS: MAG SULF 1GM/100ML (MAG RUN) IV ONE (07:21)
[2023-05-28] MEDS: SODIUM CHLORIDE 0.9% INJ 10 ML SYR IV PRN (07:21)
[2023-05-28] MEDS: MAG SULF 1GM/100ML (MAG RUN) IV SCH (08:16)
[2023-05-28] MEDS ORDERED: SODIUM CHLORIDE 0.9% INJ 10 ML SYR IV SCH (09:00)
[2023-05-28 11:34] VITALS: BP 122/72; O2SAT 96
== END 2023-05-28 11:35 ==
LOC: M INFU 07:00
PROVIDERS: ATTEND Family Medicine
DX: E83.42 Hypomagnesemia (principal); Z91.041 Radiographic dye allergy status; Z88.0 Allergy status to penicillin; Z88.2 Allergy status to sulfonamides; Z88.1 Allergy status to other antibiotic agents; Z88.5 Allergy status to narcotic agent; Z88.3 Allergy status to other anti-infective agents; Z88.8 Allergy status to other drugs, medicaments and biological substances
CPT/HCPCS: 36591; 83735; 96365; 96366; J3475

== ENCOUNTER → 2023-05-29 | Outpatient (CLI) | payer OTHER | LOC: M PAIN 15:30 | PROVIDERS: ATTEND Anesthesiology | DX: R10.32 Left lower quadrant pain (principal); G89.29 Other chronic pain; M79.18 Myalgia, other site; E11.40 Type 2 diabetes mellitus with diabetic neuropathy, unspecified; J45.909 Unspecified asthma, uncomplicated; E78.5 Hyperlipidemia, unspecified; K21.9 Gastro-esophageal reflux disease without esophagitis; J32.0 Chronic maxillary sinusitis; G89.4 Chronic pain syndrome; Z79.4 Long term (current) use of insulin; Z79.899 Other long term (current) drug therapy; Z88.0 Allergy status to penicillin; Z88.1 Allergy status to other antibiotic agents; Z88.2 Allergy status to sulfonamides; Z88.5 Allergy status to narcotic agent; Z88.6 Allergy status to analgesic agent; Z88.8 Allergy status to other drugs, medicaments and biological substances; Z91.040 Latex allergy status ==

== ENCOUNTER 2023-06-10 09:25 | Emergency (ER) | payer OTHER ==
[~2023-06-10] VITALS: Ht 170.2 cm; Wt 73.2 kg
[2023-06-10] MEDS: SODIUM CHLORIDE 0.9% INJ 10 ML SYR IV PRN (11:45)
[2023-06-10 14:40] VITALS: BP 122/64; TEMP 97.7; O2SAT 95
== END 2023-06-10 14:48 | disposition home or self-care (01) ==
LOC: EDBD 09:25 → M ED 09:25
DX: R07.89 Other chest pain (principal); Z95.9 Presence of cardiac and vascular implant and graft, unspecified; Z96.82 Presence of neurostimulator; E11.9 Type 2 diabetes mellitus without complications; I10 Essential (primary) hypertension; E78.5 Hyperlipidemia, unspecified; Z86.73 Personal history of transient ischemic attack (TIA), and cerebral infarction without residual deficits; Z87.442 Personal history of urinary calculi; Z82.49 Family history of ischemic heart disease and other diseases of the circulatory system; Z79.899 Other long term (current) drug therapy; Z79.4 Long term (current) use of insulin; Z91.041 Radiographic dye allergy status; Z88.3 Allergy status to other anti-infective agents; Z88.0 Allergy status to penicillin; Z88.2 Allergy status to sulfonamides; Z91.040 Latex allergy status; Z91.89 Other specified personal risk factors, not elsewhere classified; Z88.1 Allergy status to other antibiotic agents; Z88.5 Allergy status to narcotic agent; Z91.018 Allergy to other foods

== ENCOUNTER 2023-06-11 09:10 | Outpatient (CLI) | payer OTHER ==
[~2023-06-11] VITALS: Ht 167.6 cm; Wt 75.0 kg
[2023-06-11 09:10] VITALS: BP 118/59; O2SAT 95
[~2023-06-11 09:10] MED LIST changes: -SENN1TAB41 PO; +SENN1TAB85 PO; +SODIUM CHLORIDE 0.9% INJ 10 ML SYR IV SCH
[2023-06-11] MEDS: MAG SULF 1GM/100ML (MAG RUN) IV ONE (09:23)
[2023-06-11] MEDS: SODIUM CHLORIDE 0.9% INJ 10 ML SYR IV PRN (09:23)
[2023-06-11] MEDS: MAG SULF 1GM/100ML (MAG RUN) IV SCH (10:22)
[2023-06-11 11:00] VITALS: BP 112/54; O2SAT 94
[2023-06-11 13:24] VITALS: BP 116/57; O2SAT 94
== END 2023-06-11 13:30 | disposition home or self-care (01) ==
LOC: M INFU 09:10
PROVIDERS: ATTEND Family Medicine
DX: E83.42 Hypomagnesemia (principal); Z91.041 Radiographic dye allergy status; Z88.3 Allergy status to other anti-infective agents; Z88.0 Allergy status to penicillin; Z88.2 Allergy status to sulfonamides; Z88.8 Allergy status to other drugs, medicaments and biological substances; Z88.1 Allergy status to other antibiotic agents; Z88.5 Allergy status to narcotic agent
CPT/HCPCS: 36591; 83735; 96365; 96366; J3475

== ENCOUNTER 2023-06-18 06:50 | Outpatient (CLI) | payer OTHER ==
[~2023-06-18] VITALS: Ht 170.2 cm; Wt 73.0 kg
[~2023-06-18 06:50] MED LIST changes: +SODIUM CHLORIDE 0.9% INJ 10 ML SYR IV PRN; -SODIUM CHLORIDE 0.9% INJ 10 ML SYR IV SCH
[2023-06-18] MEDS: SODIUM CHLORIDE 0.9% INJ 10 ML SYR IV SCH (06:55)
[2023-06-18] MEDS: MAG SULF 1GM/100ML (MAG RUN) IV ONE (06:55)
[2023-06-18 07:05] VITALS: BP 120/68; O2SAT 95
[2023-06-18] MEDS: MAG SULF 1GM/100ML (MAG RUN) IV SCH (08:00)
[2023-06-18 11:15] VITALS: BP 102/54; O2SAT 94
== END 2023-06-18 11:15 | disposition home or self-care (01) ==
LOC: M INFU 06:50
PROVIDERS: ATTEND Family Medicine
DX: E83.42 Hypomagnesemia (principal); Z91.041 Radiographic dye allergy status; Z88.3 Allergy status to other anti-infective agents; Z88.0 Allergy status to penicillin; Z88.2 Allergy status to sulfonamides; Z88.8 Allergy status to other drugs, medicaments and biological substances; Z88.1 Allergy status to other antibiotic agents; Z88.5 Allergy status to narcotic agent
CPT/HCPCS: 36591; 83735; 96365; 96366; J3475

== ENCOUNTER 2023-06-24 11:11 | Emergency (ER) | payer OTHER ==
[~2023-06-24] VITALS: Ht 157.5 cm; Wt 72.7 kg
[~2023-06-24 11:11] MED LIST changes: -SODIUM CHLORIDE 0.9% INJ 10 ML SYR IV PRN
[2023-06-24 12:38] LABS: BASO % 0.6 % (0.0-1.0); EOS # 0.1 10^3/uL (0.0-0.5); EOS % 2.1 % (0.0-3.0); HEMATOCRIT 37.8 % (36.0-47.0); HEMOGLOBIN 12.4 g/dl (12.0-15.5); LYMPH # 1.4 10^3/uL (1.5-5.0); LYMPH % 21.8 % (24.0-44.0); MEAN CORPUSCULAR HEMOGLOBIN 31.8 pg (27.0-33.0); MEAN CORPUSCULAR HGB CONC 32.8 g/dl (32.0-36.5); MEAN CORPUSCULAR VOLUME 96.9 fl (80.0-96.0); MONO # 0.5 10^3/uL (0.0-0.8); MONO % 8.3 % (2.0-8.0); NEUTROPHILS # 4.1 10^3/uL (1.5-8.5); NEUTROPHILS % 66.9 % (36.0-66.0); PLATELET COUNT, AUTOMATED 199 10^3/uL (150-450); WHITE BLOOD COUNT 6.2 10^3/uL (4.0-10.0)
[2023-06-24 13:03] LABS: LIPASE 29 U/L (12-53)
[2023-06-24 13:05] LABS: ALBUMIN 3.4 G/DL (3.2-5.2); ALKALINE PHOSPHATASE 99 U/L (46-116); ALT/SGPT < 9 U/L (7.0-40); AST/SGOT 36 U/L (<34); BILIRUBIN,DIRECT 0.1 MG/DL (<0.4); BILIRUBIN,TOTAL 0.3 MG/DL (0.3-1.2); BLOOD UREA NITROGEN 12 MG/DL (9-23); CALCIUM LEVEL 9.5 MG/DL (8.3-10.6); CARBON DIOXIDE LEVEL 27 MMOL/L (20-31); CHLORIDE LEVEL 103 MMOL/L (98-107); CREATININE FOR GFR 0.43 MG/DL (0.55-1.30); GLOMERULAR FILTRATION RATE > 60.0 (>45); GLUCOSE, FASTING 236 MG/DL (74-106); POTASSIUM SERUM 4.3 MMOL/L (3.5-5.1); SODIUM LEVEL 136 MMOL/L (136-145); TOTAL PROTEIN 7.3 G/DL (5.7-8.2)
[2023-06-24] MEDS: NS 500 ML IV ONE (14:04)
[2023-06-24] MEDS: ONDANSETRON 4MG 2ML VIAL IV ONE (14:04)
[2023-06-24] MEDS: HYDROMORPHONE HCL 0.5 MG/ 0.5 ML SYRINGE IV PRN (14:04)
[2023-06-24 16:20] VITALS: BP 133/85; TEMP 96.4
[2023-06-24 17:45] VITALS: O2SAT 91
[2023-06-24] MEDS: SODIUM CHLORIDE 0.9% INJ 10 ML SYR IV SCH (18:15)
[2023-06-25] MEDS ORDERED: ONDA4TAB6 PO (08:38)
== END 2023-06-24 18:29 | disposition home or self-care (01) ==
LOC: M ED 11:11
DX: R10.9 Unspecified abdominal pain (principal); J98.11 Atelectasis; E11.9 Type 2 diabetes mellitus without complications; I10 Essential (primary) hypertension; Z79.4 Long term (current) use of insulin; Z79.899 Other long term (current) drug therapy; Z91.041 Radiographic dye allergy status; Z91.018 Allergy to other foods; Z88.3 Allergy status to other anti-infective agents; Z88.0 Allergy status to penicillin; Z88.2 Allergy status to sulfonamides; Z91.89 Other specified personal risk factors, not elsewhere classified; Z88.8 Allergy status to other drugs, medicaments and biological substances; Z91.040 Latex allergy status; Z88.1 Allergy status to other antibiotic agents; Z88.5 Allergy status to narcotic agent
CPT/HCPCS: 74021; 80048; 80076; 83690; 85025; 96374; 96375; 99284; J1170; J2405

== ENCOUNTER 2023-06-24 21:54 | Emergency (ER) | payer OTHER ==
[~2023-06-24] VITALS: Ht 170.2 cm; Wt 72.5 kg
[2023-06-25] MEDS: ONDANSETRON 4MG ORAL DISINTEGRATING TAB PO ONE ×2 (02:25→08:02)
[2023-06-25 04:36] LABS: BASO % 0.4 % (0.0-1.0); HEMATOCRIT 35.1 % (36.0-47.0); HEMOGLOBIN 11.5 g/dl (12.0-15.5); LYMPH # 0.7 10^3/uL (1.5-5.0); LYMPH % 10.1 % (24.0-44.0); MEAN CORPUSCULAR HEMOGLOBIN 31.7 pg (27.0-33.0); MEAN CORPUSCULAR HGB CONC 32.8 g/dl (32.0-36.5); MEAN CORPUSCULAR VOLUME 96.7 fl (80.0-96.0); MONO # 0.4 10^3/uL (0.0-0.8); MONO % 5.6 % (2.0-8.0); NEUTROPHILS # 6.1 10^3/uL (1.5-8.5); NEUTROPHILS % 83.5 % (36.0-66.0); PLATELET COUNT, AUTOMATED 194 10^3/uL (150-450); RED BLOOD COUNT 3.63 10^6/uL (4.00-5.40); WHITE BLOOD COUNT 7.3 10^3/uL (4.0-10.0)
[2023-06-25 05:41] LABS: ALBUMIN 3.3 G/DL (3.2-5.2); ALKALINE PHOSPHATASE 99 U/L (46-116); ALT/SGPT 36 U/L (7.0-40); AST/SGOT 33 U/L (<34); BILIRUBIN,DIRECT 0.1 MG/DL (<0.4); BILIRUBIN,TOTAL 0.4 MG/DL (0.3-1.2); BLOOD UREA NITROGEN 17 MG/DL (9-23); CALCIUM LEVEL 8.7 MG/DL (8.3-10.6); CARBON DIOXIDE LEVEL 23 MMOL/L (20-31); CHLORIDE LEVEL 103 MMOL/L (98-107); CREATININE FOR GFR 0.46 MG/DL (0.55-1.30); GLOMERULAR FILTRATION RATE > 60.0 (>45); GLUCOSE, FASTING 339 MG/DL (74-106); LIPASE 23 U/L (12-53); POTASSIUM SERUM 4.5 MMOL/L (3.5-5.1); SODIUM LEVEL 136 MMOL/L (136-145); TOTAL PROTEIN 7.1 G/DL (5.7-8.2)
[2023-06-25] MEDS ORDERED: ONDANSETRON 4MG 2ML VIAL IV ONE (07:40)
[2023-06-25] MEDS: HYDROmorphone 2 MG TAB PO ONE (08:03)
[2023-06-25] MEDS ORDERED: ONDA4TAB6 PO (08:38)
[2023-06-25 08:45] VITALS: BP 141/71; TEMP 98.2; O2SAT 95
[2023-06-25] MEDS: SODIUM CHLORIDE 0.9% INJ 10 ML SYR IV PRN (08:48)
== END 2023-06-25 09:14 | disposition home or self-care (01) ==
LOC: M ED 21:54
DX: R10.9 Unspecified abdominal pain (principal); R11.2 Nausea with vomiting, unspecified; J45.909 Unspecified asthma, uncomplicated; Z86.73 Personal history of transient ischemic attack (TIA), and cerebral infarction without residual deficits; Z96.82 Presence of neurostimulator; Z93.2 Ileostomy status; Z90.49 Acquired absence of other specified parts of digestive tract; Z79.4 Long term (current) use of insulin; Z79.899 Other long term (current) drug therapy; Z91.041 Radiographic dye allergy status; Z91.018 Allergy to other foods; Z88.3 Allergy status to other anti-infective agents; Z88.0 Allergy status to penicillin; Z88.2 Allergy status to sulfonamides; Z91.89 Other specified personal risk factors, not elsewhere classified; Z88.8 Allergy status to other drugs, medicaments and biological substances; Z88.5 Allergy status to narcotic agent; Z88.1 Allergy status to other antibiotic agents

== ENCOUNTER 2023-07-02 06:45 | Outpatient (CLI) | payer OTHER ==
[~2023-07-02] VITALS: Ht 170.2 cm; Wt 72.7 kg
[2023-07-02 06:45] VITALS: BP 131/70; O2SAT 96
[~2023-07-02 06:45] MED LIST changes: +ONDA4TAB6 PO
[2023-07-02] MEDS ORDERED: SODIUM CHLORIDE 0.9% INJ 10 ML SYR IV PRN (07:00)
[2023-07-02] MEDS: SODIUM CHLORIDE 0.9% INJ 10 ML SYR IV SCH (07:11)
[2023-07-02] MEDS: MAG SULF 1GM/100ML (MAG RUN) IV ONE ×2 (07:12→08:07)
[2023-07-02 09:25] VITALS: BP 112/58; O2SAT 96
== END 2023-07-02 09:25 ==
LOC: M INFU 06:45
PROVIDERS: ATTEND Family Medicine
DX: E83.42 Hypomagnesemia (principal); Z91.041 Radiographic dye allergy status; Z91.018 Allergy to other foods; Z88.3 Allergy status to other anti-infective agents; Z88.0 Allergy status to penicillin; Z88.2 Allergy status to sulfonamides; Z91.89 Other specified personal risk factors, not elsewhere classified; Z88.8 Allergy status to other drugs, medicaments and biological substances; Z88.1 Allergy status to other antibiotic agents; Z88.5 Allergy status to narcotic agent
CPT/HCPCS: 36591; 83735; 96365; 96366; J3475

== ENCOUNTER 2023-07-09 06:15 | Outpatient (CLI) | payer OTHER ==
[~2023-07-09] VITALS: Ht 170.2 cm; Wt 72.7 kg
[2023-07-09] MEDS ORDERED: SODIUM CHLORIDE 0.9% INJ 10 ML SYR IV PRN (06:50)
[2023-07-09] MEDS: SODIUM CHLORIDE 0.9% INJ 10 ML SYR IV SCH (07:10)
[2023-07-09] MEDS: MAG SULF 1GM/100ML (MAG RUN) IV ONE (07:10)
[2023-07-09 07:18] VITALS: BP 136/73; O2SAT 100
[2023-07-09] MEDS: MAG SULF 1GM/100ML (MAG RUN) IV SCH (08:10)
[2023-07-09 11:30] VITALS: BP 117/68; O2SAT 94
== END 2023-07-09 11:30 ==
LOC: M INFU 06:15
PROVIDERS: ATTEND Family Medicine
DX: E83.42 Hypomagnesemia (principal); Z91.041 Radiographic dye allergy status; Z91.018 Allergy to other foods; Z88.3 Allergy status to other anti-infective agents; Z88.0 Allergy status to penicillin; Z88.2 Allergy status to sulfonamides; Z91.89 Other specified personal risk factors, not elsewhere classified; Z88.8 Allergy status to other drugs, medicaments and biological substances; Z88.5 Allergy status to narcotic agent; Z88.1 Allergy status to other antibiotic agents; Z91.040 Latex allergy status; Z91.02 Food additives allergy status
CPT/HCPCS: 36591; 83735; 96365; 96366; J3475

== ENCOUNTER 2023-07-17 06:20 | Outpatient (CLI) | payer OTHER ==
[~2023-07-17] VITALS: Ht 170.2 cm; Wt 72.7 kg
[2023-07-17 06:40] VITALS: BP 115/53; O2SAT 93
[2023-07-17] MEDS: MAG SULF 1GM/100ML (MAG RUN) IV ONE (06:46)
[2023-07-17] MEDS: SODIUM CHLORIDE 0.9% INJ 10 ML SYR IV SCH (06:46)
[2023-07-17] MEDS ORDERED: SODIUM CHLORIDE 0.9% INJ 10 ML SYR IV PRN (07:00)
[2023-07-17] MEDS: MAG SULF 1GM/100ML (MAG RUN) IV SCH (07:46)
[2023-07-17 10:42] VITALS: BP 125/62; O2SAT 93
== END 2023-07-17 11:15 ==
LOC: M INFU 06:20
PROVIDERS: ATTEND Family Medicine
DX: E83.42 Hypomagnesemia (principal); Z91.041 Radiographic dye allergy status; Z88.3 Allergy status to other anti-infective agents; Z88.0 Allergy status to penicillin; Z88.2 Allergy status to sulfonamides; Z91.89 Other specified personal risk factors, not elsewhere classified; Z88.8 Allergy status to other drugs, medicaments and biological substances; Z88.5 Allergy status to narcotic agent; Z88.1 Allergy status to other antibiotic agents
CPT/HCPCS: 36591; 83735; 96365; 96366; J3475

== ENCOUNTER 2023-07-22 18:11 | Emergency (ER) | payer OTHER ==
[~2023-07-22] VITALS: Ht 167.6 cm; Wt 7.3 kg
[~2023-07-22 18:11] MED LIST changes: -INSU100I48 SQ
[2023-07-22 22:38] VITALS: TEMP 98.4
[2023-07-23 01:30] VITALS: BP 148/78; O2SAT 98
[2023-07-23] MEDS: GASTROGRAFIN SOLUTION 30ML PO SCH (06:24)
[2023-07-23] MEDS: ONDANSETRON 4MG 2ML VIAL IV ONE (06:24)
[2023-07-23] MEDS: NS 500 ML IV ONE (06:24)
[2023-07-23] MEDS: HYDROMORPHONE HCL 0.5 MG/ 0.5 ML SYRINGE IV ONE (06:24)
[2023-07-23 06:27] LABS: BASO % 0.3 % (0.0-1.0); EOS # 0.1 10^3/uL (0.0-0.5); EOS % 1.9 % (0.0-3.0); HEMATOCRIT 34.4 % (36.0-47.0); HEMOGLOBIN 11.4 g/dl (12.0-15.5); LYMPH # 1.3 10^3/uL (1.5-5.0); LYMPH % 18.9 % (24.0-44.0); MEAN CORPUSCULAR HGB CONC 33.1 g/dl (32.0-36.5); MEAN CORPUSCULAR VOLUME 96.6 fl (80.0-96.0); MONO # 0.7 10^3/uL (0.0-0.8); MONO % 9.7 % (2.0-8.0); NEUTROPHILS # 4.6 10^3/uL (1.5-8.5); NEUTROPHILS % 68.9 % (36.0-66.0); PLATELET COUNT, AUTOMATED 201 10^3/uL (150-450); RED BLOOD COUNT 3.56 10^6/uL (4.00-5.40); WHITE BLOOD COUNT 6.7 10^3/uL (4.0-10.0)
[2023-07-23 06:50] LABS: LIPASE 32 U/L (12-53)
[2023-07-23 06:52] LABS: ALBUMIN 3.2 G/DL (3.2-5.2); ALKALINE PHOSPHATASE 103 U/L (46-116); ALT/SGPT 33 U/L (7.0-40); AST/SGOT 34 U/L (<34); BILIRUBIN,TOTAL 0.2 MG/DL (0.3-1.2); BLOOD UREA NITROGEN 17 MG/DL (9-23); CALCIUM LEVEL 8.8 MG/DL (8.3-10.6); CARBON DIOXIDE LEVEL 26 MMOL/L (20-31); CHLORIDE LEVEL 102 MMOL/L (98-107); CREATININE FOR GFR 0.46 MG/DL (0.55-1.30); GLOMERULAR FILTRATION RATE > 60.0 (>45); GLUCOSE, FASTING 293 MG/DL (74-106); MAGNESIUM LEVEL 1.5 MG/DL (1.8-2.4); POTASSIUM SERUM 3.7 MMOL/L (3.5-5.1); SODIUM LEVEL 135 MMOL/L (136-145); TOTAL PROTEIN 7.1 G/DL (5.7-8.2)
[2023-07-23] MEDS: MAG SULF 1GM/100ML (MAG RUN) 1 GM in IV 1 EA IV ONE ×2 (07:37→08:55)
[2023-07-23] MEDS: diphenhydrAMINE 50MG/ML VIAL IV STA (08:55)
[2023-07-23] MEDS ORDERED: INSU100I48 SQ (10:51)
[2023-07-23] MEDS ORDERED: HOME MED LIST COMPLETE! XX SCH (10:55)
[2023-07-23] MEDS: SODIUM CHLORIDE 0.9% INJ 10 ML SYR IV PRN (11:14)
== END 2023-07-23 11:52 | disposition home or self-care (01) ==
LOC: EDBD 18:11 → M ED 18:11
DX: E83.42 Hypomagnesemia (principal); R11.2 Nausea with vomiting, unspecified; E11.9 Type 2 diabetes mellitus without complications; I10 Essential (primary) hypertension; E78.5 Hyperlipidemia, unspecified; Z86.73 Personal history of transient ischemic attack (TIA), and cerebral infarction without residual deficits; Z87.442 Personal history of urinary calculi; Z93.3 Colostomy status; Z79.899 Other long term (current) drug therapy; Z88.3 Allergy status to other anti-infective agents; Z88.0 Allergy status to penicillin; Z88.2 Allergy status to sulfonamides; Z88.8 Allergy status to other drugs, medicaments and biological substances; Z88.1 Allergy status to other antibiotic agents; Z88.5 Allergy status to narcotic agent; Z91.018 Allergy to other foods; Z91.89 Other specified personal risk factors, not elsewhere classified; Z91.041 Radiographic dye allergy status; Z91.040 Latex allergy status
CPT/HCPCS: 74176; 80053; 81001; 83605; 83690; 83735; 85025; 87088; 87186; 87486; 87581; 87633; 87798; 96365; 96366; 96375; 99284; J1170; J1200; J2405; J3475; Q9963

== ENCOUNTER → 2023-07-22 | Outpatient (REF) | payer OTHER ==
[~2023-07-22] MED LIST changes: -EQL0.65S; +EQL0.65S NARES; +INSU100I48 SQ
== END ==
LOC: M SFHCPLAZ 12:05
PROVIDERS: ATTEND Student in an Organized Health Care Education/Training Program
DX: J01.00 Acute maxillary sinusitis, unspecified (principal)

== ENCOUNTER 2023-07-30 07:02 | Outpatient (CLI) | payer OTHER ==
[~2023-07-30 07:02] MED LIST changes: +INSU100I48 SQ; +SODIUM CHLORIDE 0.9% INJ 10 ML SYR IV PRN
[2023-07-30] MEDS: MAG SULF 1GM/100ML (MAG RUN) IV ONE (07:02)
[2023-07-30 07:22] VITALS: BP 144/87; O2SAT 98
[2023-07-30] MEDS: MAG SULF 1GM/100ML (MAG RUN) IV SCH (08:27)
[2023-07-30] MEDS: SODIUM CHLORIDE 0.9% INJ 10 ML SYR IV SCH (08:28)
== END 2023-07-30 11:30 | disposition home or self-care (01) ==
LOC: M INFU 07:02
PROVIDERS: ATTEND Family Medicine
DX: E83.42 Hypomagnesemia (principal); Z88.3 Allergy status to other anti-infective agents; Z88.0 Allergy status to penicillin; Z88.2 Allergy status to sulfonamides; Z88.1 Allergy status to other antibiotic agents; Z88.5 Allergy status to narcotic agent; Z88.8 Allergy status to other drugs, medicaments and biological substances
CPT/HCPCS: 36591; 83735; 96365; 96366; J3475

== ENCOUNTER → 2023-08-04 | Outpatient (CLI) | payer OTHER ==
[~2023-08-04] MED LIST changes: -SODIUM CHLORIDE 0.9% INJ 10 ML SYR IV PRN
== END ==
LOC: M PLAIMG 14:15
PROVIDERS: ATTEND Student in an Organized Health Care Education/Training Program
DX: S69.92XA Unspecified injury of left wrist, hand and finger(s), initial encounter (principal); X58.XXXA Exposure to other specified factors, initial encounter; Y92.9 Unspecified place or not applicable; Y93.9 Activity, unspecified; Y99.9 Unspecified external cause status

== ENCOUNTER 2023-08-06 06:50 | Outpatient (CLI) | payer OTHER ==
[~2023-08-06] VITALS: Ht 167.6 cm; Wt 73.0 kg
[2023-08-06 06:50] VITALS: BP 117/69; O2SAT 95
[2023-08-06] MEDS ORDERED: SODIUM CHLORIDE 0.9% INJ 10 ML SYR IV SCH (07:00)
[2023-08-06] MEDS ORDERED: SODIUM CHLORIDE 0.9% INJ 10 ML SYR IV PRN (07:00)
[2023-08-06] MEDS: MAG SULF 1GM/100ML (MAG RUN) IV ONE (07:04)
[2023-08-06] MEDS: SODIUM CHLORIDE 0.9% INJ 10 ML SYR IV SCH (07:04)
[2023-08-06] MEDS: MAG SULF 1GM/100ML (MAG RUN) IV SCH (08:33)
[2023-08-06 11:50] VITALS: BP 122/66; O2SAT 96
== END 2023-08-06 11:50 ==
LOC: M INFU 06:50
PROVIDERS: ATTEND Family Medicine
DX: E83.42 Hypomagnesemia (principal); Z88.0 Allergy status to penicillin; Z88.2 Allergy status to sulfonamides; Z88.1 Allergy status to other antibiotic agents; Z88.3 Allergy status to other anti-infective agents; Z88.5 Allergy status to narcotic agent; Z88.8 Allergy status to other drugs, medicaments and biological substances; Z91.041 Radiographic dye allergy status; Z91.040 Latex allergy status; Z91.02 Food additives allergy status
CPT/HCPCS: 36591; 83735; 96365; 96366; J3475

== ENCOUNTER 2023-08-13 07:00 | Outpatient (CLI) | payer OTHER ==
[~2023-08-13 07:00] MED LIST changes: +DOXY-323 PO; +DOXY-440 PO; -DOXY-443 PO; -DOXY-444 PO; +SODIUM CHLORIDE 0.9% INJ 10 ML SYR IV PRN
[2023-08-13] MEDS: MAG SULF 1GM/100ML (MAG RUN) IV ONE (07:13)
[2023-08-13 08:00] VITALS: BP 117/65; O2SAT 97
[2023-08-13] MEDS: MAG SULF 1GM/100ML (MAG RUN) IV SCH (08:46)
[2023-08-13] MEDS: SODIUM CHLORIDE 0.9% INJ 10 ML SYR IV SCH (10:33)
[2023-08-13 11:20] VITALS: BP 115/57; O2SAT 87
== END 2023-08-13 11:50 ==
LOC: M INFU 07:00
PROVIDERS: ATTEND Family Medicine
DX: E83.42 Hypomagnesemia (principal); Z91.041 Radiographic dye allergy status; Z88.3 Allergy status to other anti-infective agents; Z88.0 Allergy status to penicillin; Z88.2 Allergy status to sulfonamides; Z88.1 Allergy status to other antibiotic agents; Z88.5 Allergy status to narcotic agent; Z91.89 Other specified personal risk factors, not elsewhere classified; Z91.040 Latex allergy status
CPT/HCPCS: 36591; 83735; 96365; 96366; J3475

== ENCOUNTER → 2023-08-18 | Outpatient (REF) | payer OTHER ==
[~2023-08-18] MED LIST changes: -SODIUM CHLORIDE 0.9% INJ 10 ML SYR IV PRN
[2023-08-18 18:05] LABS: APPEARANCE, URINE CLOUDY (CLEAR); BACTERIA, URINE AUTO 3+ (NEGATIVE); BILIRUBIN, URINE AUTO NEGATIVE (NEGATIVE); BLOOD, URINE BLOOD NEGATIVE (NEGATIVE); COLOR, URINE YELLOW (YELLOW); GLUCOSE, URINE (UA) AUTO NEGATIVE (NEGATIVE); KETONE, URINE AUTO NEGATIVE (NEGATIVE); LEUKOCYTE ESTERASE, URINE AUTO 3+ (NEGATIVE); MUCUS, URINE SMALL (NEGATIVE); NITRITE, URINE AUTO POSITIVE (NEGATIVE); PROTEIN, URINE AUTO NEGATIVE (NEGATIVE); RBC, URINE AUTO 3 /HPF (0-3); SPECIFIC GRAVITY URINE AUTO 1.008 (1.002-1.035); SQUAMOUS EPITHELIAL CELL UR AU 3 /HPF (0-6); UROBILINOGEN, URINE AUTO 0.2 mg/dL (0.0-2.0); WBC, URINE AUTO 82 /HPF (0-3)
== END ==
LOC: M SFHCPLAZ 15:13
PROVIDERS: ATTEND Student in an Organized Health Care Education/Training Program
DX: R30.0 Dysuria (principal)

== ENCOUNTER 2023-08-20 06:45 | Outpatient (CLI) | payer OTHER ==
[~2023-08-20] VITALS: Ht 167.6 cm; Wt 73.0 kg
[~2023-08-20 06:45] MED LIST changes: +SODIUM CHLORIDE 0.9% INJ 10 ML SYR IV PRN
[2023-08-20 07:00] VITALS: BP 123/74; O2SAT 99
[2023-08-20] MEDS: MAG SULF 1GM/100ML (MAG RUN) IV ONE (07:04)
[2023-08-20] MEDS: MAG SULF 1GM/100ML (MAG RUN) IV SCH (08:04)
[2023-08-20] MEDS ORDERED: SODIUM CHLORIDE 0.9% INJ 10 ML SYR IV SCH ×2 (09:00)
[2023-08-20 11:25] VITALS: BP 111/72; O2SAT 94
== END 2023-08-20 11:25 | disposition home or self-care (01) ==
LOC: M INFU 06:45
PROVIDERS: ATTEND Family Medicine
DX: E83.42 Hypomagnesemia (principal); Z88.0 Allergy status to penicillin; Z88.1 Allergy status to other antibiotic agents; Z88.2 Allergy status to sulfonamides; Z88.6 Allergy status to analgesic agent; Z88.8 Allergy status to other drugs, medicaments and biological substances; Z91.041 Radiographic dye allergy status; Z91.018 Allergy to other foods
CPT/HCPCS: 36591; 83735; 96365; 96366; J3475

== ENCOUNTER 2023-08-27 07:00 | Outpatient (CLI) | payer OTHER ==
[~2023-08-27] VITALS: Ht 167.6 cm; Wt 72.7 kg
[2023-08-27 07:00] VITALS: BP 117/65; O2SAT 95
[~2023-08-27 07:00] MED LIST changes: +SODIUM CHLORIDE 0.9% INJ 10 ML SYR IV SCH
[2023-08-27] MEDS: MAG SULF 1GM/100ML (MAG RUN) IV ONE (07:16)
[2023-08-27] MEDS: SODIUM CHLORIDE 0.9% INJ 10 ML SYR IV SCH (07:17)
[2023-08-27] MEDS: MAG SULF 1GM/100ML (MAG RUN) IV SCH (08:13)
[2023-08-27 11:30] VITALS: BP 121/59; O2SAT 94
== END 2023-08-27 11:30 | disposition home or self-care (01) ==
LOC: M INFU 07:00
PROVIDERS: ATTEND Family Medicine
DX: E83.42 Hypomagnesemia (principal); Z91.041 Radiographic dye allergy status; Z88.3 Allergy status to other anti-infective agents; Z88.0 Allergy status to penicillin; Z88.2 Allergy status to sulfonamides; Z88.8 Allergy status to other drugs, medicaments and biological substances; Z88.1 Allergy status to other antibiotic agents; Z88.5 Allergy status to narcotic agent
CPT/HCPCS: 36591; 83735; 96365; 96366; J3475

== ENCOUNTER 2023-09-03 06:50 | Outpatient (CLI) | payer OTHER ==
[~2023-09-03] VITALS: Ht 167.6 cm; Wt 72.0 kg
[2023-09-03] MEDS: MAG SULF 1GM/100ML (MAG RUN) IV ONE (07:21)
[2023-09-03] MEDS: SODIUM CHLORIDE 0.9% INJ 10 ML SYR IV SCH (07:21)
[2023-09-03] MEDS ORDERED: SODIUM CHLORIDE 0.9% INJ 10 ML SYR IV PRN (08:00)
[2023-09-03] MEDS: MAG SULF 1GM/100ML (MAG RUN) IV SCH (08:20)
[2023-09-03 08:22] VITALS: BP 145/67; O2SAT 97
[2023-09-03 12:30] VITALS: BP 164/79; O2SAT 96
[2023-09-03 14:10] VITALS: BP 146/68; O2SAT 96
== END 2023-09-03 14:15 ==
LOC: M INFU 06:50
PROVIDERS: ATTEND Family Medicine
DX: E83.42 Hypomagnesemia (principal); Z88.3 Allergy status to other anti-infective agents; Z88.0 Allergy status to penicillin; Z88.2 Allergy status to sulfonamides; Z88.8 Allergy status to other drugs, medicaments and biological substances; Z88.1 Allergy status to other antibiotic agents; Z88.5 Allergy status to narcotic agent; Z91.89 Other specified personal risk factors, not elsewhere classified; Z91.040 Latex allergy status; Z91.041 Radiographic dye allergy status
CPT/HCPCS: 36415; 36591; 83735; 96365; 96366; J3475

== ENCOUNTER → 2023-09-03 | Outpatient (CLI) | payer OTHER ==
[~2023-09-03] MED LIST changes: -SODIUM CHLORIDE 0.9% INJ 10 ML SYR IV PRN; -SODIUM CHLORIDE 0.9% INJ 10 ML SYR IV SCH
[2023-09-03 11:05] LABS: BASO % 0.2 % (0.0-1.0); EOS # 0.1 10^3/uL (0.0-0.5); EOS % 0.8 % (0.0-3.0); HEMATOCRIT 38.2 % (36.0-47.0); HEMOGLOBIN 12.1 g/dl (12.0-15.5); LYMPH % 16.1 % (24.0-44.0); MEAN CORPUSCULAR HEMOGLOBIN 31.1 pg (27.0-33.0); MEAN CORPUSCULAR HGB CONC 31.7 g/dl (32.0-36.5); MEAN CORPUSCULAR VOLUME 98.2 fl (80.0-96.0); MONO # 0.5 10^3/uL (0.0-0.8); MONO % 8.7 % (2.0-8.0); NEUTROPHILS # 4.4 10^3/uL (1.5-8.5); NEUTROPHILS % 73.5 % (36.0-66.0); RED BLOOD COUNT 3.89 10^6/uL (4.00-5.40)
[2023-09-03 11:23] LABS: URIC ACID 4.5 MG/DL (3.1-7.8)
[2023-09-03 11:25] LABS: C REACTIVE PROTEIN QUANTITATIV < 0.40 MG/DL (<1.0)
[2023-09-03 11:28] LABS: ALKALINE PHOSPHATASE 90 U/L (46-116); ALT/SGPT 28 U/L (7.0-40); AST/SGOT 17 U/L (<34); BILIRUBIN,TOTAL 0.3 MG/DL (0.3-1.2); BLOOD UREA NITROGEN 14 MG/DL (9-23); CALCIUM LEVEL 10.2 MG/DL (8.3-10.6); CARBON DIOXIDE LEVEL 26 MMOL/L (20-31); CHLORIDE LEVEL 107 MMOL/L (98-107); CREATININE FOR GFR 0.44 MG/DL (0.55-1.30); GLOMERULAR FILTRATION RATE > 60.0 (>45); GLUCOSE, FASTING 485 MG/DL (74-106); POTASSIUM SERUM 4.4 MMOL/L (3.5-5.1); SODIUM LEVEL 135 MMOL/L (136-145); TOTAL PROTEIN 6.9 G/DL (5.7-8.2)
[2023-09-03 11:47] LABS: ERYTHROCYTE SEDIMENTATION RATE 75 mm/hr (0-30)
== END ==
LOC: M LAB 07:04
PROVIDERS: ATTEND Physician Assistant
DX: M79.642 Pain in left hand (principal); M79.641 Pain in right hand

== ENCOUNTER → 2023-09-04 | Outpatient (CLI) | payer OTHER | LOC: M SOG 13:21 | PROVIDERS: ATTEND Physician Assistant | DX: M25.531 Pain in right wrist (principal) ==

== ENCOUNTER 2023-09-10 07:00 | Outpatient (CLI) | payer OTHER ==
[~2023-09-10] VITALS: Ht 167.6 cm; Wt 68.0 kg
[2023-09-10 07:43] VITALS: BP 106/60; O2SAT 96
[2023-09-10] MEDS ORDERED: SODIUM CHLORIDE 0.9% INJ 10 ML SYR IV PRN (07:45)
[2023-09-10] MEDS: MAG SULF 1GM/100ML (MAG RUN) IV ONE ×2 (08:00→08:56)
[2023-09-10] MEDS: SODIUM CHLORIDE 0.9% INJ 10 ML SYR IV SCH (09:09)
[2023-09-10 10:20] VITALS: BP 118/57; O2SAT 97
== END 2023-09-10 10:25 | disposition home or self-care (01) ==
LOC: M INFU 07:00
PROVIDERS: ATTEND Family Medicine
DX: E83.42 Hypomagnesemia (principal); Z88.3 Allergy status to other anti-infective agents; Z88.0 Allergy status to penicillin; Z88.2 Allergy status to sulfonamides; Z88.8 Allergy status to other drugs, medicaments and biological substances; Z88.1 Allergy status to other antibiotic agents; Z88.5 Allergy status to narcotic agent; Z91.89 Other specified personal risk factors, not elsewhere classified; Z91.040 Latex allergy status; Z91.041 Radiographic dye allergy status
CPT/HCPCS: 36591; 83735; 96365; 96366; J3475

== ENCOUNTER 2023-09-11 15:41 | Emergency (ER) | payer OTHER ==
[~2023-09-11] VITALS: Ht 170.2 cm; Wt 76.5 kg
[~2023-09-11 15:41] MED LIST changes: +ONDA-282 PO; -ONDA4TAB6 PO
[2023-09-11] MEDS: LEVALBUTEROL 1.25MG 0.5ML CONCENTRATE NEB NEB PRN (17:24)
[2023-09-11 17:31] LABS: ABG BASE EXCESS 2.9 (-2.0-2.0); ABG HCO3 26.7 MMOL/L (22.0-26.0); ABG O2 SATURATION 94.5 % (95.0-99.0); ABG PARTIAL PRESSURE CO2 37.9 mmHg (35.0-45.0); ABG PARTIAL PRESSURE O2 72.9 mmHg (75.0-100.0); ABG TOTAL CO2 27.8 MMOL/L (23.0-31.0); ABG pH (ARTERIAL) 7.465 UNITS (7.350-7.450)
[2023-09-11 18:11] LABS: BASO % 0.5 % (0.0-1.0); EOS # 0.1 10^3/uL (0.0-0.5); EOS % 1.4 % (0.0-3.0); HEMATOCRIT 38.5 % (36.0-47.0); HEMOGLOBIN 12.4 g/dl (12.0-15.5); LYMPH # 1.4 10^3/uL (1.5-5.0); LYMPH % 17.8 % (24.0-44.0); MEAN CORPUSCULAR HEMOGLOBIN 31.4 pg (27.0-33.0); MEAN CORPUSCULAR HGB CONC 32.2 g/dl (32.0-36.5); MEAN CORPUSCULAR VOLUME 97.5 fl (80.0-96.0); MONO # 0.7 10^3/uL (0.0-0.8); MONO % 8.6 % (2.0-8.0); NEUTROPHILS # 5.7 10^3/uL (1.5-8.5); NEUTROPHILS % 71.4 % (36.0-66.0); PLATELET COUNT, AUTOMATED 185 10^3/uL (150-450); RED BLOOD COUNT 3.95 10^6/uL (4.00-5.40)
[2023-09-11] MEDS: NS 1,000 ML IV ONE (18:12)
[2023-09-11] MEDS: ACETAMINOPHEN 325 MG TAB PO ONE (18:14)
[2023-09-11 18:35] LABS: BLOOD UREA NITROGEN 11 MG/DL (9-23); CALCIUM LEVEL 10.6 MG/DL (8.3-10.6); CARBON DIOXIDE LEVEL 30 MMOL/L (20-31); CHLORIDE LEVEL 103 MMOL/L (98-107); CREATININE FOR GFR 0.46 MG/DL (0.55-1.30); GLOMERULAR FILTRATION RATE > 60.0 (>45); GLUCOSE, FASTING 159 MG/DL (74-106); POTASSIUM SERUM 3.9 MMOL/L (3.5-5.1); SODIUM LEVEL 138 MMOL/L (136-145)
[2023-09-11 19:32] VITALS: BP 132/63; TEMP 97.2; O2SAT 97
[2023-09-11] MEDS: SODIUM CHLORIDE 0.9% INJ 10 ML SYR IV PRN (19:54)
== END 2023-09-11 20:01 | disposition home or self-care (01) ==
LOC: EDBD 15:41 → M ED 15:41
DX: J44.1 Chronic obstructive pulmonary disease with (acute) exacerbation (principal); I95.9 Hypotension, unspecified; E11.9 Type 2 diabetes mellitus without complications; E78.5 Hyperlipidemia, unspecified; E66.9 Obesity, unspecified; Z86.718 Personal history of other venous thrombosis and embolism; Z86.73 Personal history of transient ischemic attack (TIA), and cerebral infarction without residual deficits; Z79.4 Long term (current) use of insulin; Z79.899 Other long term (current) drug therapy; Z88.0 Allergy status to penicillin; Z88.2 Allergy status to sulfonamides; Z88.8 Allergy status to other drugs, medicaments and biological substances; Z88.5 Allergy status to narcotic agent; Z88.6 Allergy status to analgesic agent; Z88.3 Allergy status to other anti-infective agents; Z91.041 Radiographic dye allergy status; Z91.018 Allergy to other foods; Z91.89 Other specified personal risk factors, not elsewhere classified; Z88.1 Allergy status to other antibiotic agents

== ENCOUNTER 2023-09-17 07:00 | Outpatient (CLI) | payer OTHER ==
[~2023-09-17] VITALS: Ht 167.6 cm; Wt 72.7 kg
[~2023-09-17 07:00] MED LIST changes: +SODIUM CHLORIDE 0.9% INJ 10 ML SYR IV PRN
[2023-09-17 07:10] VITALS: BP 112/67; O2SAT 95
[2023-09-17] MEDS: ALTEPLASE 2MG/2ML VIAL XX ONE (08:00)
[2023-09-17] MEDS: MAG SULF 1GM/100ML (MAG RUN) IV ONE ×2 (08:40→09:55)
[2023-09-17] MEDS: SODIUM CHLORIDE 0.9% INJ 10 ML SYR IV SCH (08:41)
== END 2023-09-17 09:00 | disposition home or self-care (01) ==
LOC: M INFU 07:00
PROVIDERS: ATTEND Family Medicine
DX: E83.42 Hypomagnesemia (principal); Z88.3 Allergy status to other anti-infective agents; Z88.0 Allergy status to penicillin; Z88.2 Allergy status to sulfonamides; Z88.8 Allergy status to other drugs, medicaments and biological substances; Z88.1 Allergy status to other antibiotic agents; Z88.5 Allergy status to narcotic agent; Z91.018 Allergy to other foods; Z91.89 Other specified personal risk factors, not elsewhere classified; Z91.040 Latex allergy status; Z91.041 Radiographic dye allergy status
CPT/HCPCS: 36591; 36593; 83735; 96365; 96366; 96523; J2997; J3475

== ENCOUNTER 2023-09-23 22:09 | Emergency (ER) | payer OTHER ==
[~2023-09-23] VITALS: Ht 167.6 cm; Wt 72.7 kg
[2023-09-24] MEDS ORDERED: SODIUM CHLORIDE 0.9% INJ 10 ML SYR IV PRN (01:00)
[2023-09-24 01:07] VITALS: TEMP 97.9
[2023-09-24 02:13] LABS: BASO % 0.6 % (0.0-1.0); EOS # 0.1 10^3/uL (0.0-0.5); EOS % 1.1 % (0.0-3.0); HEMATOCRIT 36.5 % (36.0-47.0); HEMOGLOBIN 11.8 g/dl (12.0-15.5); LYMPH # 1.1 10^3/uL (1.5-5.0); LYMPH % 20.6 % (24.0-44.0); MEAN CORPUSCULAR HEMOGLOBIN 31.7 pg (27.0-33.0); MEAN CORPUSCULAR HGB CONC 32.3 g/dl (32.0-36.5); MEAN CORPUSCULAR VOLUME 98.1 fl (80.0-96.0); MONO # 0.6 10^3/uL (0.0-0.8); MONO % 11.8 % (2.0-8.0); NEUTROPHILS # 3.6 10^3/uL (1.5-8.5); NEUTROPHILS % 65.5 % (36.0-66.0); PLATELET COUNT, AUTOMATED 172 10^3/uL (150-450); RED BLOOD COUNT 3.72 10^6/uL (4.00-5.40); WHITE BLOOD COUNT 5.4 10^3/uL (4.0-10.0)
[2023-09-24 02:21] LABS: ERYTHROCYTE SEDIMENTATION RATE 87 mm/hr (0-30)
[2023-09-24 02:55] LABS: URIC ACID 5.8 MG/DL (3.1-7.8)
[2023-09-24 03:24] LABS: BLOOD UREA NITROGEN 14 MG/DL (9-23); CALCIUM LEVEL 10.1 MG/DL (8.3-10.6); CARBON DIOXIDE LEVEL 28 MMOL/L (20-31); CHLORIDE LEVEL 102 MMOL/L (98-107); CREATININE FOR GFR 0.55 MG/DL (0.55-1.30); GLOMERULAR FILTRATION RATE > 60.0 (>45); GLUCOSE, FASTING 283 MG/DL (74-106); POTASSIUM SERUM 3.9 MMOL/L (3.5-5.1); SODIUM LEVEL 134 MMOL/L (136-145)
[2023-09-24 03:28] VITALS: BP 125/75; O2SAT 97
== END 2023-09-24 04:10 | disposition home or self-care (01) ==
LOC: M ED 22:09
DX: M25.561 Pain in right knee (principal); Z91.041 Radiographic dye allergy status; Z88.3 Allergy status to other anti-infective agents; Z91.018 Allergy to other foods; Z88.0 Allergy status to penicillin; Z88.2 Allergy status to sulfonamides; Z91.89 Other specified personal risk factors, not elsewhere classified; Z88.8 Allergy status to other drugs, medicaments and biological substances; Z88.1 Allergy status to other antibiotic agents; Z88.5 Allergy status to narcotic agent; Z91.040 Latex allergy status

== ENCOUNTER → 2023-09-23 | Outpatient (CLI) | payer OTHER ==
[~2023-09-23] MED LIST changes: -SODIUM CHLORIDE 0.9% INJ 10 ML SYR IV PRN
== END ==
LOC: M RAD 15:46
PROVIDERS: ATTEND Family Medicine
DX: M25.561 Pain in right knee (principal); M17.11 Unilateral primary osteoarthritis, right knee

== ENCOUNTER → 2023-09-23 | Outpatient (CLI) | payer OTHER | LOC: M PLAIMG 07:54 | PROVIDERS: ATTEND Family Medicine | DX: G44.59 Other complicated headache syndrome (principal) ==

== ENCOUNTER → 2023-09-23 | Outpatient (CLI) | payer OTHER | LOC: M PLAIMG 07:52 | PROVIDERS: ATTEND Student in an Organized Health Care Education/Training Program | DX: R30.0 Dysuria (principal); I51.7 Cardiomegaly; I25.10 Atherosclerotic heart disease of native coronary artery without angina pectoris; Z90.49 Acquired absence of other specified parts of digestive tract; K86.89 Other specified diseases of pancreas; R91.8 Other nonspecific abnormal finding of lung field ==

== ENCOUNTER → 2023-09-26 | Outpatient (REF) | payer OTHER ==
[2023-09-26 20:42] LABS: CRYSTALS, BODY FLUID CA PYROPHOSPHATE (NONE SEEN); SOURCE, BODY FLUID RT KNEE; SOURCE, BODY FLUID CRYSTALS RT KNEE; SYNOVIAL FLUID COLOR YELLOW (COLORLESS)
== END ==
LOC: M LAB REF 19:35
PROVIDERS: ATTEND Family Medicine
DX: M25.561 Pain in right knee (principal)

== ENCOUNTER → 2023-09-29 | Outpatient (CLI) | payer OTHER | LOC: M RAD 09:54 | PROVIDERS: ATTEND Physician Assistant | DX: R22.31 Localized swelling, mass and lump, right upper limb (principal); M19.031 Primary osteoarthritis, right wrist ==

== ENCOUNTER 2023-10-01 06:25 | Outpatient (CLI) | payer OTHER ==
[~2023-10-01] VITALS: Ht 167.6 cm; Wt 76.8 kg
[2023-10-01 06:45] VITALS: BP 119/66; O2SAT 96
[2023-10-01 07:06] LABS: HEMOGLOBIN A1c 10.4 % (4.0-6.0)
[2023-10-01] MEDS ORDERED: SODIUM CHLORIDE 0.9% INJ 10 ML SYR IV PRN (07:20)
[2023-10-01] MEDS: MAG SULF 1GM/100ML (MAG RUN) IV ONE (07:22)
[2023-10-01] MEDS: SODIUM CHLORIDE 0.9% INJ 10 ML SYR IV SCH (07:23)
[2023-10-01] MEDS: MAG SULF 1GM/100ML (MAG RUN) IV SCH (08:28)
[2023-10-01 11:30] VITALS: BP 116/58; O2SAT 97
== END 2023-10-01 11:30 ==
LOC: M INFU 06:25
PROVIDERS: ATTEND Family Medicine
DX: Z83.42 Family history of familial hypercholesterolemia (principal); Z88.3 Allergy status to other anti-infective agents; Z88.0 Allergy status to penicillin; Z88.2 Allergy status to sulfonamides; Z88.5 Allergy status to narcotic agent; Z88.8 Allergy status to other drugs, medicaments and biological substances; Z88.1 Allergy status to other antibiotic agents; Z91.89 Other specified personal risk factors, not elsewhere classified; Z91.040 Latex allergy status; Z91.041 Radiographic dye allergy status
CPT/HCPCS: 36591; 83036; 83735; 96365; 96366; J3475

== ENCOUNTER → 2023-10-01 | Outpatient (CLI) | payer OTHER | LOC: M PAIN 14:15 | PROVIDERS: ATTEND Anesthesiology | DX: M54.2 Cervicalgia (principal); M25.519 Pain in unspecified shoulder; M79.10 Myalgia, unspecified site; M79.18 Myalgia, other site; G89.29 Other chronic pain; E11.40 Type 2 diabetes mellitus with diabetic neuropathy, unspecified; J45.909 Unspecified asthma, uncomplicated; E78.5 Hyperlipidemia, unspecified; K21.9 Gastro-esophageal reflux disease without esophagitis; J32.0 Chronic maxillary sinusitis; Z79.82 Long term (current) use of aspirin; Z79.899 Other long term (current) drug therapy; Z88.5 Allergy status to narcotic agent; Z88.8 Allergy status to other drugs, medicaments and biological substances; Z88.0 Allergy status to penicillin; Z88.2 Allergy status to sulfonamides; Z88.6 Allergy status to analgesic agent; Z88.1 Allergy status to other antibiotic agents; Z91.041 Radiographic dye allergy status; Z91.040 Latex allergy status ==

== ENCOUNTER 2023-10-08 06:25 | Outpatient (CLI) | payer OTHER ==
[~2023-10-08] VITALS: Ht 167.6 cm; Wt 72.7 kg
[2023-10-08 06:45] VITALS: BP 100/65; O2SAT 96
[2023-10-08] MEDS ORDERED: SODIUM CHLORIDE 0.9% INJ 10 ML SYR IV PRN (06:50)
[2023-10-08] MEDS: MAG SULF 1GM/100ML (MAG RUN) IV ONE ×2 (07:11→08:13)
[2023-10-08] MEDS: SODIUM CHLORIDE 0.9% INJ 10 ML SYR IV SCH (07:12)
[2023-10-08 09:30] VITALS: BP 119/63; O2SAT 96
== END 2023-10-08 09:30 | disposition home or self-care (01) ==
LOC: M INFU 06:25
PROVIDERS: ATTEND Family Medicine
DX: E83.42 Hypomagnesemia (principal); Z88.3 Allergy status to other anti-infective agents; Z91.041 Radiographic dye allergy status; Z88.0 Allergy status to penicillin; Z88.2 Allergy status to sulfonamides; Z91.89 Other specified personal risk factors, not elsewhere classified; Z88.8 Allergy status to other drugs, medicaments and biological substances; Z88.1 Allergy status to other antibiotic agents; Z88.5 Allergy status to narcotic agent; Z91.040 Latex allergy status
CPT/HCPCS: 36591; 83735; 96365; 96366; J3475

== ENCOUNTER 2023-10-17 06:13 | Outpatient (CLI) | payer OTHER ==
[~2023-10-17] VITALS: Ht 167.6 cm; Wt 72.7 kg
[~2023-10-17 06:13] MED LIST changes: +MAG SULF 1GM/100ML (MAG RUN) IV ONE; +SODIUM CHLORIDE 0.9% INJ 10 ML SYR IV PRN; +SODIUM CHLORIDE 0.9% INJ 10 ML SYR IV SCH
[2023-10-17 07:00] VITALS: BP 143/74; O2SAT 97
[2023-10-17] MEDS ORDERED: SODIUM CHLORIDE 0.9% INJ 10 ML SYR IV PRN (07:00)
[2023-10-17] MEDS: MAG SULF 1GM/100ML (MAG RUN) IV ONE ×2 (07:11→08:00)
[2023-10-17] MEDS: SODIUM CHLORIDE 0.9% INJ 10 ML SYR IV SCH (07:11)
[2023-10-17 09:15] VITALS: BP 132/74; O2SAT 97
== END 2023-10-17 09:15 ==
LOC: M INFU 06:13
PROVIDERS: ATTEND Family Medicine
DX: E83.42 Hypomagnesemia (principal); Z91.041 Radiographic dye allergy status; Z88.3 Allergy status to other anti-infective agents; Z88.0 Allergy status to penicillin; Z88.2 Allergy status to sulfonamides; Z91.89 Other specified personal risk factors, not elsewhere classified; Z88.8 Allergy status to other drugs, medicaments and biological substances; Z88.1 Allergy status to other antibiotic agents; Z88.5 Allergy status to narcotic agent
CPT/HCPCS: 36591; 83735; 96365; 96366; J3475

== ENCOUNTER 2023-10-22 06:34 | Outpatient (CLI) | payer OTHER ==
[~2023-10-22 06:34] MED LIST changes: -MAG SULF 1GM/100ML (MAG RUN) IV ONE; -SODIUM CHLORIDE 0.9% INJ 10 ML SYR IV PRN; -SODIUM CHLORIDE 0.9% INJ 10 ML SYR IV SCH
[2023-10-22 06:50] VITALS: BP 113/58; O2SAT 95
[2023-10-22] MEDS ORDERED: SODIUM CHLORIDE 0.9% INJ 10 ML SYR IV PRN (07:00)
[2023-10-22] MEDS: SODIUM CHLORIDE 0.9% INJ 10 ML SYR IV SCH (07:05)
[2023-10-22] MEDS: MAG SULF 1GM/100ML (MAG RUN) IV ONE (07:05)
[2023-10-22] MEDS: MAG SULF 1GM/100ML (MAG RUN) IV SCH (08:41)
== END 2023-10-22 11:30 ==
LOC: M INFU 06:34
PROVIDERS: ATTEND Family Medicine
DX: E83.42 Hypomagnesemia (principal); Z91.041 Radiographic dye allergy status; Z88.3 Allergy status to other anti-infective agents; Z88.0 Allergy status to penicillin; Z88.2 Allergy status to sulfonamides; Z91.89 Other specified personal risk factors, not elsewhere classified; Z88.8 Allergy status to other drugs, medicaments and biological substances; Z88.1 Allergy status to other antibiotic agents; Z88.5 Allergy status to narcotic agent
CPT/HCPCS: 36591; 83735; 96365; 96366; J3475

== ENCOUNTER 2023-10-29 06:50 | Outpatient (CLI) | payer OTHER ==
[~2023-10-29] VITALS: Ht 170.2 cm; Wt 73.0 kg
[2023-10-29] MEDS ORDERED: SODIUM CHLORIDE 0.9% INJ 10 ML SYR IV PRN (07:00)
[2023-10-29] MEDS: SODIUM CHLORIDE 0.9% INJ 10 ML SYR IV SCH ×2 (07:24→08:43)
[2023-10-29] MEDS: MAG SULF 1GM/100ML (MAG RUN) IV ONE (07:29)
[2023-10-29 07:30] VITALS: BP 119/65; O2SAT 95
[2023-10-29] MEDS: MAG SULF 1GM/100ML (MAG RUN) IV SCH (08:41)
[2023-10-29 11:50] VITALS: BP 131/70; O2SAT 96
== END 2023-10-29 11:50 ==
LOC: M INFU 06:50
PROVIDERS: ATTEND Family Medicine
DX: E83.42 Hypomagnesemia (principal); Z88.0 Allergy status to penicillin; Z88.1 Allergy status to other antibiotic agents; Z88.2 Allergy status to sulfonamides; Z88.8 Allergy status to other drugs, medicaments and biological substances; Z91.041 Radiographic dye allergy status
CPT/HCPCS: 36591; 83735; 96365; 96366; J3475

== ENCOUNTER → 2023-10-30 | Outpatient (REF) | payer OTHER | LOC: M SFHCPLAZ 12:35 | PROVIDERS: ATTEND Family Medicine | DX: R30.0 Dysuria (principal) ==

== ENCOUNTER 2023-11-05 06:21 | Outpatient (CLI) | payer OTHER ==
[2023-11-05 07:00] VITALS: BP 161/76; O2SAT 96
[2023-11-05] MEDS: MAG SULF 1GM/100ML (MAG RUN) IV ONE (07:11)
[2023-11-05] MEDS: SODIUM CHLORIDE 0.9% INJ 10 ML SYR IV PRN (07:11)
[2023-11-05] MEDS: MAG SULF 1GM/100ML (MAG RUN) IV SCH (08:50)
== END 2023-11-05 11:45 ==
LOC: M INFU 06:21
PROVIDERS: ATTEND Family Medicine
DX: E83.42 Hypomagnesemia (principal); Z91.041 Radiographic dye allergy status; Z91.040 Latex allergy status; Z88.3 Allergy status to other anti-infective agents; Z88.0 Allergy status to penicillin; Z88.2 Allergy status to sulfonamides; Z91.89 Other specified personal risk factors, not elsewhere classified; Z88.8 Allergy status to other drugs, medicaments and biological substances; Z88.1 Allergy status to other antibiotic agents; Z88.5 Allergy status to narcotic agent
CPT/HCPCS: 36591; 83735; 96365; 96366; J3475

== ENCOUNTER 2023-11-12 06:45 | Outpatient (CLI) | payer OTHER ==
[~2023-11-12] VITALS: Ht 167.6 cm; Wt 73.2 kg
[2023-11-12] MEDS ORDERED: SODIUM CHLORIDE 0.9% INJ 10 ML SYR IV PRN (06:55)
[2023-11-12 07:00] VITALS: BP 120/70; O2SAT 97
[2023-11-12] MEDS: MAG SULF 1GM/100ML (MAG RUN) IV ONE (07:14)
[2023-11-12] MEDS: SODIUM CHLORIDE 0.9% INJ 10 ML SYR IV SCH (07:15)
[2023-11-12] MEDS: MAG SULF 1GM/100ML (MAG RUN) IV SCH (08:28)
[2023-11-12 11:45] VITALS: BP 99/62; O2SAT 98
== END 2023-11-12 11:45 ==
LOC: M INFU 06:45
PROVIDERS: ATTEND Family Medicine
DX: E83.42 Hypomagnesemia (principal); Z91.041 Radiographic dye allergy status; Z91.040 Latex allergy status; Z88.0 Allergy status to penicillin; Z88.2 Allergy status to sulfonamides; Z91.89 Other specified personal risk factors, not elsewhere classified; Z88.1 Allergy status to other antibiotic agents; Z88.8 Allergy status to other drugs, medicaments and biological substances; Z88.5 Allergy status to narcotic agent; Z88.3 Allergy status to other anti-infective agents
CPT/HCPCS: 36591; 83735; 96365; 96366; J3475

== ENCOUNTER 2023-11-19 06:55 | Outpatient (CLI) | payer OTHER ==
[~2023-11-19] VITALS: Ht 165.1 cm; Wt 73.2 kg
[2023-11-19] MEDS ORDERED: SODIUM CHLORIDE 0.9% INJ 10 ML SYR IV PRN (07:00)
[2023-11-19] MEDS: SODIUM CHLORIDE 0.9% INJ 10 ML SYR IV SCH (07:05)
[2023-11-19] MEDS: MAG SULF 1GM/100ML (MAG RUN) IV ONE (07:05)
[2023-11-19 07:10] VITALS: BP 139/70; O2SAT 96
[2023-11-19] MEDS: MAG SULF 1GM/100ML (MAG RUN) IV SCH (08:27)
[2023-11-19 13:15] VITALS: BP 144/70; O2SAT 98
== END 2023-11-19 13:15 ==
LOC: M INFU 06:55
PROVIDERS: ATTEND Family Medicine
DX: E83.42 Hypomagnesemia (principal); Z91.041 Radiographic dye allergy status; Z88.3 Allergy status to other anti-infective agents; Z88.0 Allergy status to penicillin; Z88.2 Allergy status to sulfonamides; Z91.89 Other specified personal risk factors, not elsewhere classified; Z88.8 Allergy status to other drugs, medicaments and biological substances; Z88.1 Allergy status to other antibiotic agents; Z88.5 Allergy status to narcotic agent; Z91.040 Latex allergy status
CPT/HCPCS: 36591; 83735; 96365; 96366; J3475

== ENCOUNTER 2023-11-26 06:12 | Outpatient (CLI) | payer OTHER ==
[~2023-11-26] VITALS: Ht 167.6 cm; Wt 72.7 kg
[2023-11-26] MEDS ORDERED: SODIUM CHLORIDE 0.9% INJ 10 ML SYR IV PRN (07:00)
[2023-11-26 07:06] VITALS: BP 115/60; O2SAT 94
[2023-11-26] MEDS: MAG SULF 1GM/100ML (MAG RUN) IV ONE (07:11)
[2023-11-26] MEDS: MAG SULF 1GM/100ML (MAG RUN) IV SCH (08:07)
[2023-11-26] MEDS: SODIUM CHLORIDE 0.9% INJ 10 ML SYR IV SCH (08:08)
[2023-11-26 11:06] VITALS: BP 138/60; O2SAT 96
== END 2023-11-26 11:15 ==
LOC: M INFU 06:12
PROVIDERS: ATTEND Family Medicine
DX: E83.42 Hypomagnesemia (principal); Z88.3 Allergy status to other anti-infective agents; Z88.0 Allergy status to penicillin; Z88.2 Allergy status to sulfonamides; Z88.8 Allergy status to other drugs, medicaments and biological substances; Z88.1 Allergy status to other antibiotic agents; Z88.5 Allergy status to narcotic agent; Z91.89 Other specified personal risk factors, not elsewhere classified; Z91.040 Latex allergy status; Z91.041 Radiographic dye allergy status
CPT/HCPCS: 36591; 83735; 96365; 96366; J3475

== ENCOUNTER → 2023-11-28 | Outpatient (CLI) | payer OTHER ==
[~2023-11-28] MED LIST changes: +TRIAMCINOLONE ACETONIDE SUSP 40MG/ML 1ML VIAL As Ordered ONE
== END ==
LOC: M PAIN 08:15
PROVIDERS: ATTEND Anesthesiology
DX: M79.12 Myalgia of auxiliary muscles, head and neck (principal); E11.40 Type 2 diabetes mellitus with diabetic neuropathy, unspecified; J45.909 Unspecified asthma, uncomplicated; E78.5 Hyperlipidemia, unspecified; K21.9 Gastro-esophageal reflux disease without esophagitis; J32.0 Chronic maxillary sinusitis; G89.4 Chronic pain syndrome; Z86.718 Personal history of other venous thrombosis and embolism; Z79.82 Long term (current) use of aspirin; Z79.891 Long term (current) use of opiate analgesic; Z79.899 Other long term (current) drug therapy; Z88.0 Allergy status to penicillin; Z88.1 Allergy status to other antibiotic agents; Z88.2 Allergy status to sulfonamides; Z88.5 Allergy status to narcotic agent; Z88.6 Allergy status to analgesic agent; Z88.8 Allergy status to other drugs, medicaments and biological substances; Z91.048 Other nonmedicinal substance allergy status; Z91.040 Latex allergy status; Z91.041 Radiographic dye allergy status
CPT/HCPCS: 20553; J0665; J3301

== ENCOUNTER 2023-12-03 06:45 | Outpatient (CLI) | payer OTHER ==
[~2023-12-03] VITALS: Ht 167.6 cm; Wt 72.8 kg
[2023-12-03 06:45] VITALS: BP 112/66; O2SAT 96
[~2023-12-03 06:45] MED LIST changes: -TRIAMCINOLONE ACETONIDE SUSP 40MG/ML 1ML VIAL As Ordered ONE
[2023-12-03] MEDS: MAG SULF 1GM/100ML (MAG RUN) IV ONE ×2 (07:15→08:32)
[2023-12-03] MEDS: SODIUM CHLORIDE 0.9% INJ 10 ML SYR IV PRN (08:32)
[2023-12-03 09:23] VITALS: BP 108/55; O2SAT 96
== END 2023-12-03 09:55 ==
LOC: M INFU 06:45
PROVIDERS: ATTEND Family Medicine
DX: E83.42 Hypomagnesemia (principal); Z91.041 Radiographic dye allergy status; Z88.3 Allergy status to other anti-infective agents; Z88.0 Allergy status to penicillin; Z88.2 Allergy status to sulfonamides; Z91.89 Other specified personal risk factors, not elsewhere classified; Z88.8 Allergy status to other drugs, medicaments and biological substances; Z88.1 Allergy status to other antibiotic agents; Z88.5 Allergy status to narcotic agent
CPT/HCPCS: 36591; 83735; 96365; 96366; J3475

== ENCOUNTER 2023-12-10 06:40 | Outpatient (CLI) | payer OTHER ==
[~2023-12-10] VITALS: Ht 167.6 cm; Wt 72.7 kg
[2023-12-10 07:05] VITALS: BP 131/70; O2SAT 93
[2023-12-10] MEDS ORDERED: SODIUM CHLORIDE 0.9% INJ 10 ML SYR IV PRN (07:10)
[2023-12-10] MEDS: MAG SULF 1GM/100ML (MAG RUN) IV ONE ×2 (07:34→08:29)
[2023-12-10] MEDS: SODIUM CHLORIDE 0.9% INJ 10 ML SYR IV SCH (07:35)
[2023-12-10 09:25] VITALS: BP 137/67; O2SAT 98
== END 2023-12-10 09:45 ==
LOC: M INFU 06:40
PROVIDERS: ATTEND Family Medicine
DX: E83.42 Hypomagnesemia (principal); Z91.041 Radiographic dye allergy status; Z88.3 Allergy status to other anti-infective agents; Z91.040 Latex allergy status; Z88.0 Allergy status to penicillin; Z88.2 Allergy status to sulfonamides; Z91.89 Other specified personal risk factors, not elsewhere classified; Z88.8 Allergy status to other drugs, medicaments and biological substances; Z88.1 Allergy status to other antibiotic agents; Z88.5 Allergy status to narcotic agent
CPT/HCPCS: 36591; 83735; 96365; 96366; J3475

== ENCOUNTER 2023-12-13 18:34 | Emergency (ER) | payer OTHER ==
[2023-12-13] MEDS: methylPREDNISolone 125MG 2ML VIAL IV ONE (20:07)
[2023-12-13] MEDS: FAMOTIDINE 20MG/2ML VIAL IVP ONE (20:09)
[2023-12-13] MEDS: diphenhydrAMINE 50MG/ML VIAL IV STA (20:11)
[2023-12-13] MEDS: HYDROMORPHONE HCL 0.5 MG/ 0.5 ML SYRINGE IV PRN (20:12)
[2023-12-13 20:48] LABS: BASO % 0.5 % (0.0-1.0); EOS # 0.1 10^3/uL (0.0-0.5); EOS % 1.1 % (0.0-3.0); HEMATOCRIT 41.2 % (36.0-47.0); HEMOGLOBIN 13.1 g/dl (12.0-15.5); LYMPH # 1.2 10^3/uL (1.5-5.0); MEAN CORPUSCULAR HEMOGLOBIN 30.8 pg (27.0-33.0); MEAN CORPUSCULAR HGB CONC 31.8 g/dl (32.0-36.5); MEAN CORPUSCULAR VOLUME 96.9 fl (80.0-96.0); MONO # 0.9 10^3/uL (0.0-0.8); MONO % 9.9 % (2.0-8.0); NEUTROPHILS # 6.5 10^3/uL (1.5-8.5); NEUTROPHILS % 74.3 % (36.0-66.0); PLATELET COUNT, AUTOMATED 192 10^3/uL (150-450); RED BLOOD COUNT 4.25 10^6/uL (4.00-5.40); WHITE BLOOD COUNT 8.8 10^3/uL (4.0-10.0)
[2023-12-13] MEDS: NICOTINE 21MG/24HR 1 EA TRANSDERMAL TD ONE (21:20)
[2023-12-13 21:30] LABS: ALBUMIN 3.5 G/DL (3.2-5.2); ALKALINE PHOSPHATASE 115 U/L (46-116); ALT/SGPT 74 U/L (7.0-40); AST/SGOT 86 U/L (<34); BILIRUBIN,DIRECT < 0.1 MG/DL (<0.4); BILIRUBIN,TOTAL 0.3 MG/DL (0.3-1.2); BLOOD UREA NITROGEN 16 MG/DL (9-23); CALCIUM LEVEL 10.1 MG/DL (8.3-10.6); CARBON DIOXIDE LEVEL 27 MMOL/L (20-31); CHLORIDE LEVEL 103 MMOL/L (98-107); GLOMERULAR FILTRATION RATE > 60.0 (>45); GLUCOSE, FASTING 223 MG/DL (74-106); LIPASE 32 U/L (12-53); POTASSIUM SERUM 5.4 MMOL/L (3.5-5.1); SODIUM LEVEL 137 MMOL/L (136-145)
[2023-12-13] MEDS ORDERED: ISOVUE-370 76% 100ML VIAL As Ordered ONE (21:41)
[2023-12-14 01:36] VITALS: BP 146/93; TEMP 98.1; O2SAT 92
[2023-12-14] MEDS: HYDROMORPHONE HCL 0.5 MG/ 0.5 ML SYRINGE IV ONE (01:36)
== END 2023-12-14 02:55 | disposition home or self-care (01) ==
LOC: M ED 18:34
DX: R10.9 Unspecified abdominal pain (principal); K62.89 Other specified diseases of anus and rectum; Z93.3 Colostomy status; Z79.899 Other long term (current) drug therapy; Z91.018 Allergy to other foods; Z91.041 Radiographic dye allergy status; Z91.040 Latex allergy status; Z88.3 Allergy status to other anti-infective agents; Z88.0 Allergy status to penicillin; Z88.2 Allergy status to sulfonamides; Z91.89 Other specified personal risk factors, not elsewhere classified; Z88.8 Allergy status to other drugs, medicaments and biological substances; Z88.5 Allergy status to narcotic agent; Z88.1 Allergy status to other antibiotic agents
CPT/HCPCS: 74176; 80048; 80076; 83690; 85025; 93041; 96374; 96375; 96376; 99284; J1170; J1200; J2919; S0028

== ENCOUNTER 2023-12-14 10:07 | Inpatient (IN) | payer OTHER, MEDICAID ==
[~2023-12-14] VITALS: Ht 167.6 cm; Wt 79.7 kg
[2023-12-14] MEDS: ONDANSETRON 4MG 2ML VIAL IV ONE (12:07)
[2023-12-14] MEDS: NS 1,000 ML IV ONE (12:07)
[2023-12-14] MEDS: HYDROMORPHONE HCL 0.5 MG/ 0.5 ML SYRINGE IV PRN ×2 (12:08→18:56)
[2023-12-14 12:29] LABS: BASO % 0.1 % (0.0-1.0); HEMATOCRIT 41.4 % (36.0-47.0); HEMOGLOBIN 13.6 g/dl (12.0-15.5); LYMPH # 0.5 10^3/uL (1.5-5.0); LYMPH % 6.1 % (24.0-44.0); MEAN CORPUSCULAR HEMOGLOBIN 31.3 pg (27.0-33.0); MEAN CORPUSCULAR HGB CONC 32.9 g/dl (32.0-36.5); MEAN CORPUSCULAR VOLUME 95.4 fl (80.0-96.0); MONO # 0.6 10^3/uL (0.0-0.8); MONO % 7.3 % (2.0-8.0); NEUTROPHILS # 7.1 10^3/uL (1.5-8.5); NEUTROPHILS % 86.1 % (36.0-66.0); PLATELET COUNT, AUTOMATED 206 10^3/uL (150-450); RED BLOOD COUNT 4.34 10^6/uL (4.00-5.40); WHITE BLOOD COUNT 8.2 10^3/uL (4.0-10.0)
[2023-12-14 13:06] LABS: BLOOD UREA NITROGEN 18 MG/DL (9-23); CALCIUM LEVEL 10.1 MG/DL (8.3-10.6); CARBON DIOXIDE LEVEL 24 MMOL/L (20-31); CHLORIDE LEVEL 96 MMOL/L (98-107); CREATININE FOR GFR 0.47 MG/DL (0.55-1.30); GLOMERULAR FILTRATION RATE > 60.0 (>45); GLUCOSE, FASTING 477 MG/DL (74-106); POTASSIUM SERUM 3.9 MMOL/L (3.5-5.1); SODIUM LEVEL 131 MMOL/L (136-145)
[2023-12-14] MEDS: HumuLIN R (REGULAR) INSULIN (NovoLIN R) **100U/ML** PER UNIT IV ONE (13:31)
[2023-12-14] MEDS: LIDOCAINE 2% JELLY 6ML SYRINGE TOP ONE (14:16)
[2023-12-14 14:29] LABS: HEMOGLOBIN A1c 11.2 % (4.0-6.0)
[2023-12-14] MEDS ORDERED: HYDROMORPHONE HCL 0.5 MG/ 0.5 ML SYRINGE IV PRN (14:35)
[2023-12-14] MEDS ORDERED: DEXTROSE 50% 50ML SYRINGE IV PRN (15:20)
[2023-12-14] MEDS ORDERED: GLUCOSE 4 GM CHEW PO PRN (15:20)
[2023-12-14] MEDS ORDERED: GLUCAGON INJ 1MG VIAL SC PRN (15:20)
[2023-12-14 15:29] LABS: MAGNESIUM LEVEL 1.6 MG/DL (1.8-2.4)
[2023-12-14 16:24] VITALS: BP 169/80; TEMP 97; O2SAT 96
[2023-12-14] MEDS: NS 1,000 ML IV SCH (16:43)
[2023-12-14] MEDS: MAG SULF 1GM/100ML (MAG RUN) 1 GM in IV 1 EA IV SCH (17:05)
[2023-12-14] MEDS: HumuLIN R (REGULAR) INSULIN (NovoLIN R) **100U/ML** PER UNIT IV STA ×2 (17:05→17:34)
[2023-12-14 17:16] VITALS: BP 140/69
[2023-12-14 18:47] LABS: BLOOD UREA NITROGEN 17 MG/DL (9-23); CALCIUM LEVEL 9.9 MG/DL (8.3-10.6); CARBON DIOXIDE LEVEL 28 MMOL/L (20-31); CHLORIDE LEVEL 98 MMOL/L (98-107); GLOMERULAR FILTRATION RATE > 60.0 (>45); GLUCOSE, FASTING 362 MG/DL (74-106); SODIUM LEVEL 132 MMOL/L (136-145)
[2023-12-14] MEDS: INSULIN LISPRO (NovoLOG) PER UNIT SC SCH (18:47)
[2023-12-14 19:48] VITALS: BP 132/62; TEMP 97.1; O2SAT 94
[2023-12-14] MEDS ORDERED: HOME MED LIST COMPLETE! XX SCH (20:00)
[2023-12-14] MEDS: HEPARIN SOD (PORCINE) 5000UNITS/ML 1ML VIAL/SYRINGE SC SCH (20:59)
[2023-12-14 23:31] VITALS: BP 122/57; TEMP 97.5; O2SAT 93
[2023-12-15] VITALS (7 sets, daily range): BP systolic 110–126; BP diastolic 58–67; TEMP 97–97.6; O2SAT 84–96
[2023-12-15 07:37] LABS: BASO % 0.4 % (0.0-1.0); EOS % 0.6 % (0.0-3.0); HEMATOCRIT 38.7 % (36.0-47.0); HEMOGLOBIN 12.5 g/dl (12.0-15.5); LYMPH # 0.9 10^3/uL (1.5-5.0); LYMPH % 17.3 % (24.0-44.0); MEAN CORPUSCULAR HEMOGLOBIN 31.5 pg (27.0-33.0); MEAN CORPUSCULAR HGB CONC 32.3 g/dl (32.0-36.5); MEAN CORPUSCULAR VOLUME 97.5 fl (80.0-96.0); MONO # 0.8 10^3/uL (0.0-0.8); MONO % 15.3 % (2.0-8.0); NEUTROPHILS # 3.3 10^3/uL (1.5-8.5); NEUTROPHILS % 66.2 % (36.0-66.0); PLATELET COUNT, AUTOMATED 166 10^3/uL (150-450); RED BLOOD COUNT 3.97 10^6/uL (4.00-5.40)
[2023-12-15 08:10] LABS: BLOOD UREA NITROGEN 16 MG/DL (9-23); CALCIUM LEVEL 9.2 MG/DL (8.3-10.6); CARBON DIOXIDE LEVEL 29 MMOL/L (20-31); CHLORIDE LEVEL 104 MMOL/L (98-107); CREATININE FOR GFR 0.46 MG/DL (0.55-1.30); GLOMERULAR FILTRATION RATE > 60.0 (>45); GLUCOSE, FASTING 178 MG/DL (74-106); MAGNESIUM LEVEL 1.7 MG/DL (1.8-2.4); SODIUM LEVEL 136 MMOL/L (136-145)
[2023-12-15] MEDS: ALBUTEROL 90 MCG/ACT 8GM HFA INHALER INH PRN (09:10)
[2023-12-15] MEDS: ONDANSETRON 4MG 2ML VIAL IV PRN (11:28)
[2023-12-15] MEDS: MAG SULF 1GM/100ML (MAG RUN) 1 GM in IV 1 EA IV SCH (11:28)
[2023-12-15] MEDS: LACTULOSE 20GM/30ML SYRUP UDC PO SCH (12:12)
[2023-12-15] MEDS: KETOROLAC 30 MG/ML 1ML VIAL IV SCH (12:24)
[2023-12-15] MEDS ORDERED: HYDROMORPHONE HCL 0.5 MG/ 0.5 ML SYRINGE IV PRN (14:15)
[2023-12-15] MEDS: HYDROMORPHONE HCL 0.5 MG/ 0.5 ML SYRINGE IV PRN (15:40)
[2023-12-15] MEDS: BENZONATATE 100MG CAPSULE PO SCH (15:40)
[2023-12-16 03:48] VITALS: BP 131/62; TEMP 97; O2SAT 92
[2023-12-16 05:58] LABS: HEMOGLOBIN 11.7 g/dl (12.0-15.5); MEAN CORPUSCULAR HEMOGLOBIN 30.7 pg (27.0-33.0); MEAN CORPUSCULAR HGB CONC 30.8 g/dl (32.0-36.5); MEAN CORPUSCULAR VOLUME 99.7 fl (80.0-96.0); PLATELET COUNT, AUTOMATED 140 10^3/uL (150-450); RED BLOOD COUNT 3.81 10^6/uL (4.00-5.40); WHITE BLOOD COUNT 3.7 10^3/uL (4.0-10.0)
[2023-12-16 06:20] LABS: BLOOD UREA NITROGEN 15 MG/DL (9-23); CALCIUM LEVEL 8.7 MG/DL (8.3-10.6); CARBON DIOXIDE LEVEL 28 MMOL/L (20-31); CHLORIDE LEVEL 108 MMOL/L (98-107); CREATININE FOR GFR 0.48 MG/DL (0.55-1.30); GLOMERULAR FILTRATION RATE > 60.0 (>45); GLUCOSE, FASTING 176 MG/DL (74-106); MAGNESIUM LEVEL 1.7 MG/DL (1.8-2.4); POTASSIUM SERUM 3.6 MMOL/L (3.5-5.1); SODIUM LEVEL 139 MMOL/L (136-145)
[2023-12-16 06:33] VITALS: BP 126/60; TEMP 97.1; O2SAT 94
[2023-12-16 07:00] LABS: BASOPHILS 1 % (0-1); EOSINOPHILS 2 % (0-3); LYMPHOCYTES 22 % (16-44); MONOCYTES 11 % (0-5); NEUTROPHILS 60 % (28-66); PLATELET ESTIMATE NORMAL (NORMAL); SPHEROCYTES 1+
[2023-12-16 07:03] LABS: HYPOCHROMASIA 1+
[2023-12-16] MEDS: ACETAMINOPHEN *IV* 1,000 MG in IV 1 EA IV ONE (09:15)
[2023-12-16] MEDS: ANALGESIC BALM CRM 3OZ TOP SCH (10:03)
[2023-12-16] MEDS: MAG SULF 1GM/100ML (MAG RUN) 1 GM in IV 1 EA IV ONE (10:04)
[2023-12-16 11:48] VITALS: BP 128/61; TEMP 97.4; O2SAT 95
[2023-12-16] MEDS: NS 500 ML IV ONE (15:55)
[2023-12-16] MEDS: HYDROMORPHONE HCL 0.5 MG/ 0.5 ML SYRINGE IV ONE (15:56)
[2023-12-16 16:20] VITALS: BP 138/66; TEMP 97.6; O2SAT 95
[2023-12-16 18:25] VITALS: BP 134/80; TEMP 98.1; O2SAT 95
[2023-12-16] MEDS: BISACODYL 10MG SUPP PR ONE (20:02)
[2023-12-16 20:32] VITALS: BP 138/82; TEMP 97.2; O2SAT 95
[2023-12-17 04:08] VITALS: BP 140/81; TEMP 98.1; O2SAT 92
[2023-12-17] MEDS ORDERED: NALOXONE INJ 0.4MG/1ML VIAL IV PRN (07:50)
[2023-12-17] MEDS: HYDROMORPHONE HCL 0.5 MG/ 0.5 ML SYRINGE IV ONE (08:13)
[2023-12-17 08:25] LABS: IONIZED CALCIUM 4.5 MG/DL (4.5-5.3)
[2023-12-17 08:30] LABS: BASO % 0.3 % (0.0-1.0); EOS # 0.1 10^3/uL (0.0-0.5); EOS % 1.3 % (0.0-3.0); HEMATOCRIT 36.4 % (36.0-47.0); HEMOGLOBIN 11.5 g/dl (12.0-15.5); LYMPH # 0.7 10^3/uL (1.5-5.0); LYMPH % 18.4 % (24.0-44.0); MEAN CORPUSCULAR HGB CONC 31.6 g/dl (32.0-36.5); MEAN CORPUSCULAR VOLUME 98.1 fl (80.0-96.0); MONO # 0.4 10^3/uL (0.0-0.8); MONO % 11.1 % (2.0-8.0); NEUTROPHILS # 2.7 10^3/uL (1.5-8.5); NEUTROPHILS % 68.6 % (36.0-66.0); PLATELET COUNT, AUTOMATED 144 10^3/uL (150-450); RED BLOOD COUNT 3.71 10^6/uL (4.00-5.40); WHITE BLOOD COUNT 3.9 10^3/uL (4.0-10.0)
[2023-12-17 08:59] LABS: BLOOD UREA NITROGEN 7 MG/DL (9-23); CALCIUM LEVEL 8.1 MG/DL (8.3-10.6); CARBON DIOXIDE LEVEL 25 MMOL/L (20-31); CHLORIDE LEVEL 109 MMOL/L (98-107); GLOMERULAR FILTRATION RATE > 60.0 (>45); GLUCOSE, FASTING 168 MG/DL (74-106); MAGNESIUM LEVEL 1.5 MG/DL (1.8-2.4); POTASSIUM SERUM 3.4 MMOL/L (3.5-5.1); SODIUM LEVEL 140 MMOL/L (136-145)
[2023-12-17] MEDS: BISACODYL 10MG SUPP XX ONE (09:46)
[2023-12-17 12:00] VITALS: BP 143/79; TEMP 97.9; O2SAT 97
[2023-12-17] MEDS: NITROGLYCERIN 0.4MG SUBL TABLET SL STA (13:03)
[2023-12-17] MEDS: FUROSEMIDE 100MG/10ML VIAL IV ONE (13:21)
[2023-12-17] MEDS: MAG SULF 1GM/100ML (MAG RUN) 1 GM in IV 1 EA IV SCH (13:21)
[2023-12-17] MEDS: PANTOPRAZOLE 40MG VIAL IV ONE (13:21)
[2023-12-17 13:52] LABS: CK-MB VALUE MASS 1.4 NG/ML (<3.6)
[2023-12-17 13:54] LABS: MB/CK RELATIVE INDEX 5.6 (< OR =4)
[2023-12-17 16:00] LABS: ABG BASE EXCESS -1.4 (-2.0-2.0); ABG HCO3 20.9 MMOL/L (22.0-26.0); ABG O2 SATURATION 97.1 % (95.0-99.0); ABG PARTIAL PRESSURE CO2 28.5 mmHg (35.0-45.0); ABG PARTIAL PRESSURE O2 78.6 mmHg (75.0-100.0); ABG STANDARD HCO3 23.3 MMOL/L. (22.0-26.0); ABG TOTAL CO2 21.8 MMOL/L (23.0-31.0); ABG pH (ARTERIAL) 7.483 UNITS (7.350-7.450)
[2023-12-17] MEDS: KCL 10MEQ/100ML SWI (KRUN) 10 MEQ in IV 1 EA IV ONE (16:07)
[2023-12-17] MEDS: IPRATROPIUM 0.5MG/ALBUTEROL 2.5MG INH SOL UD 3ML (DUONEB) NEB ONE (16:08)
[2023-12-17] MEDS: SODIUM CHLORIDE 0.9% INJ 10 ML SYR IV PRN (17:17)
[2023-12-17 19:50] LABS: CK-MB VALUE MASS 1.4 NG/ML (<3.6)
[2023-12-17 19:51] LABS: MB/CK RELATIVE INDEX 5.6 (< OR =4)
[2023-12-17 19:55] LABS: MAGNESIUM LEVEL 1.8 MG/DL (1.8-2.4); POTASSIUM SERUM 2.9 MMOL/L (3.5-5.1)
[2023-12-17 20:08] VITALS: BP 124/77; TEMP 97.3; O2SAT 94
[2023-12-17] MEDS: KCL 40MEQ IN D5/NS 1000ML 1,000 ML IV ONE (20:57)
[2023-12-18 01:28] LABS: CK-MB VALUE MASS 1.4 NG/ML (<3.6)
[2023-12-18 01:30] LABS: MB/CK RELATIVE INDEX 4.82 (< OR =4)
[2023-12-18 03:57] VITALS: BP 141/76; TEMP 96.8; O2SAT 97
[2023-12-18 04:00] VITALS: BP 141/76; TEMP 96.8; O2SAT 97
[2023-12-18 06:45] LABS: BLOOD UREA NITROGEN 6 MG/DL (9-23); CALCIUM LEVEL 8.7 MG/DL (8.3-10.6); CARBON DIOXIDE LEVEL 22 MMOL/L (20-31); CHLORIDE LEVEL 107 MMOL/L (98-107); CREATININE FOR GFR 0.36 MG/DL (0.55-1.30); GLOMERULAR FILTRATION RATE > 60.0 (>45); GLUCOSE, FASTING 253 MG/DL (74-106); MAGNESIUM LEVEL 1.7 MG/DL (1.8-2.4); POTASSIUM SERUM 3.3 MMOL/L (3.5-5.1); SODIUM LEVEL 140 MMOL/L (136-145)
[2023-12-18] MEDS: MAG SULF 1GM/100ML (MAG RUN) 1 GM in IV 1 EA IV SCH (08:19)
[2023-12-18] MEDS: SODIUM CHLORIDE NASAL 0.65% SPRAY BTL (OCEAN) PRN (08:20)
[2023-12-18] MEDS: KCL 10MEQ/100ML SWI (KRUN) 10 MEQ in IV 1 EA IV SCH (08:20)
[2023-12-18] MEDS: IPRATROPIUM 0.5MG/ALBUTEROL 2.5MG INH SOL UD 3ML (DUONEB) INH PRN (08:42)
[2023-12-18 13:01] VITALS: BP 132/86; TEMP 97.5; O2SAT 98
[2023-12-18 18:28] LABS: MAGNESIUM LEVEL 1.8 MG/DL (1.8-2.4); POTASSIUM SERUM 3.6 MMOL/L (3.5-5.1)
[2023-12-18] MEDS: LEVEMIR (INSULIN DETEMIR) 1 UNITS/0.01ML SC SCH (19:55)
[2023-12-18 20:09] VITALS: BP 134/70; TEMP 97; O2SAT 100
[2023-12-19 04:00] VITALS: BP 132/68; TEMP 97.9; O2SAT 97
[2023-12-19 07:06] LABS: BLOOD UREA NITROGEN 6 MG/DL (9-23); CALCIUM LEVEL 8.9 MG/DL (8.3-10.6); CARBON DIOXIDE LEVEL 24 MMOL/L (20-31); CHLORIDE LEVEL 107 MMOL/L (98-107); CREATININE FOR GFR 0.39 MG/DL (0.55-1.30); GLOMERULAR FILTRATION RATE > 60.0 (>45); GLUCOSE, FASTING 140 MG/DL (74-106); MAGNESIUM LEVEL 1.7 MG/DL (1.8-2.4); POTASSIUM SERUM 3.1 MMOL/L (3.5-5.1); SODIUM LEVEL 141 MMOL/L (136-145)
[2023-12-19] MEDS: POTASSIUM CHLORIDE 10MEQ SR TABLET PO ONE (08:23)
[2023-12-19] MEDS: KETOROLAC 30 MG/ML 1ML VIAL IV ONE ×2 (08:24→21:40)
[2023-12-19] MEDS: MAGNESIUM OXIDE 400MG TAB (MAG-OX) PO ONE (08:24)
[2023-12-19] MEDS: ACETAMINOPHEN *IV* 1,000 MG in IV 1 EA IV ONE (08:26)
[2023-12-19] MEDS: KCL 10MEQ/100ML SWI (KRUN) 10 MEQ in IV 1 EA IV SCH (09:39)
[2023-12-19] MEDS: MAG SULF 1GM/100ML (MAG RUN) 1 GM in IV 1 EA IV ONE (09:39)
[2023-12-19 11:30] VITALS: BP 129/67; TEMP 98.1; O2SAT 100
[2023-12-19 16:48] LABS: MAGNESIUM LEVEL 1.8 MG/DL (1.8-2.4); POTASSIUM SERUM 3.7 MMOL/L (3.5-5.1)
[2023-12-19 19:53] VITALS: BP 129/61; TEMP 97.9; O2SAT 100
[2023-12-20 04:08] VITALS: BP 148/85; TEMP 97.9; O2SAT 98
[2023-12-20 07:10] LABS: BLOOD UREA NITROGEN < 5 MG/DL (9-23); CALCIUM LEVEL 9.5 MG/DL (8.3-10.6); CARBON DIOXIDE LEVEL 27 MMOL/L (20-31); CHLORIDE LEVEL 107 MMOL/L (98-107); CREATININE FOR GFR 0.43 MG/DL (0.55-1.30); GLOMERULAR FILTRATION RATE > 60.0 (>45); GLUCOSE, FASTING 148 MG/DL (74-106); MAGNESIUM LEVEL 1.6 MG/DL (1.8-2.4); POTASSIUM SERUM 3.2 MMOL/L (3.5-5.1); SODIUM LEVEL 141 MMOL/L (136-145)
[2023-12-20] MEDS: MAGNESIUM OXIDE 400MG TAB (MAG-OX) PO ONE (07:30)
[2023-12-20] MEDS ORDERED: MAGO400T2 PO (07:37)
[2023-12-20] MEDS ORDERED: K-TA1TAB PO (07:37)
[2023-12-20] MEDS: MAG SULF 1GM/100ML (MAG RUN) 1 GM in IV 1 EA IV SCH (08:00)
[2023-12-20] MEDS: POTASSIUM CHLORIDE 10MEQ SR TABLET PO SCH (08:00)
[2023-12-20] MEDS: KCL 10MEQ/100ML SWI (KRUN) 10 MEQ in IV 1 EA IV SCH (11:20)
[2023-12-20 12:00] VITALS: BP 151/85; TEMP 98.1; O2SAT 98
== END 2023-12-20 13:58 | disposition home or self-care (01) | DRG 247 ==
LOC: EDBD 10:07 → M ED 10:07 → M ED INP 14:18 → M PCU 16:06 → M MS5PR 12-16 18:07
PROVIDERS: ADMIT Student in an Organized Health Care Education/Training Program; ATTEND Student in an Organized Health Care Education/Training Program
PROC: B246ZZZ Ultrasonography of Right and Left Heart (ICD-10-PCS; principal; 2023-12-18)
DX: K56.51 Intestinal adhesions [bands], with partial obstruction (principal); E11.65 Type 2 diabetes mellitus with hyperglycemia; I50.9 Heart failure, unspecified; E87.70 Fluid overload, unspecified; G43.909 Migraine, unspecified, not intractable, without status migrainosus; J45.909 Unspecified asthma, uncomplicated; E78.5 Hyperlipidemia, unspecified; I11.0 Hypertensive heart disease with heart failure; M19.90 Unspecified osteoarthritis, unspecified site; F32.A Depression, unspecified; G89.29 Other chronic pain; E55.9 Vitamin D deficiency, unspecified; Z79.4 Long term (current) use of insulin; Z79.899 Other long term (current) drug therapy; Z91.040 Latex allergy status; Z88.0 Allergy status to penicillin; Z88.2 Allergy status to sulfonamides; Z91.048 Other nonmedicinal substance allergy status; Z88.1 Allergy status to other antibiotic agents; Z88.5 Allergy status to narcotic agent; Z91.018 Allergy to other foods; Z88.8 Allergy status to other drugs, medicaments and biological substances; Z86.718 Personal history of other venous thrombosis and embolism; Z91.041 Radiographic dye allergy status; Z90.79 Acquired absence of other genital organ(s); Z90.49 Acquired absence of other specified parts of digestive tract; Z93.2 Ileostomy status

== ENCOUNTER 2023-12-23 01:59 | Emergency (ER) | payer OTHER ==
[~2023-12-23] VITALS: Ht 170.2 cm; Wt 72.7 kg
[~2023-12-23 01:59] MED LIST changes: +MAGO400T2 PO
[2023-12-23 02:55] LABS: BASO % 0.4 % (0.0-1.0); EOS # 0.1 10^3/uL (0.0-0.5); EOS % 1.6 % (0.0-3.0); HEMATOCRIT 37.4 % (36.0-47.0); LYMPH # 1.6 10^3/uL (1.5-5.0); MEAN CORPUSCULAR HEMOGLOBIN 31.3 pg (27.0-33.0); MEAN CORPUSCULAR HGB CONC 32.1 g/dl (32.0-36.5); MEAN CORPUSCULAR VOLUME 97.4 fl (80.0-96.0); MONO # 0.6 10^3/uL (0.0-0.8); MONO % 8.7 % (2.0-8.0); NEUTROPHILS # 4.3 10^3/uL (1.5-8.5); PLATELET COUNT, AUTOMATED 225 10^3/uL (150-450); RED BLOOD COUNT 3.84 10^6/uL (4.00-5.40); WHITE BLOOD COUNT 6.7 10^3/uL (4.0-10.0)
[2023-12-23 03:22] LABS: ALBUMIN 2.9 G/DL (3.2-5.2); ALKALINE PHOSPHATASE 104 U/L (46-116); ALT/SGPT 41 U/L (7.0-40); AST/SGOT 31 U/L (<34); BILIRUBIN,TOTAL 0.2 MG/DL (0.3-1.2); BLOOD UREA NITROGEN 11 MG/DL (9-23); CALCIUM LEVEL 9.7 MG/DL (8.3-10.6); CARBON DIOXIDE LEVEL 30 MMOL/L (20-31); CHLORIDE LEVEL 103 MMOL/L (98-107); CREATININE FOR GFR 0.63 MG/DL (0.55-1.30); GLOMERULAR FILTRATION RATE > 60.0 (>45); GLUCOSE, FASTING 303 MG/DL (74-106); POTASSIUM SERUM 3.9 MMOL/L (3.5-5.1); SODIUM LEVEL 137 MMOL/L (136-145); TOTAL PROTEIN 6.7 G/DL (5.7-8.2)
[2023-12-23 03:25] LABS: INR 0.98; PARTIAL THROMBOPLASTIN TIME 23.7 SECONDS (24.8-34.2); PROTHROMBIN TIME 12.7 SECONDS (12.5-14.5)
[2023-12-23] MEDS ORDERED: FLOM0.4C39 PO (09:46)
[2023-12-23] MEDS: FLUCONAZOLE 50MG TABLET PO ONE (10:22)
[2023-12-23] MEDS: TAMSULOSIN 0.4 MG CAP PO ONE (10:23)
[2023-12-23] MEDS: ACETAMINOPHEN 500 MG TAB PO ONE (10:23)
[2023-12-23 10:26] VITALS: BP 130/60; TEMP 97.7; O2SAT 96
== END 2023-12-23 10:44 | disposition home or self-care (01) ==
LOC: M ED 01:59
DX: R10.9 Unspecified abdominal pain (principal); N20.0 Calculus of kidney; E78.5 Hyperlipidemia, unspecified; G43.909 Migraine, unspecified, not intractable, without status migrainosus; E11.9 Type 2 diabetes mellitus without complications; Z79.4 Long term (current) use of insulin; Z79.899 Other long term (current) drug therapy; Z88.3 Allergy status to other anti-infective agents; Z88.0 Allergy status to penicillin; Z88.2 Allergy status to sulfonamides; Z88.1 Allergy status to other antibiotic agents; Z88.5 Allergy status to narcotic agent; Z88.8 Allergy status to other drugs, medicaments and biological substances; Z91.89 Other specified personal risk factors, not elsewhere classified; Z91.018 Allergy to other foods; Z91.040 Latex allergy status; Z91.041 Radiographic dye allergy status

== ENCOUNTER 2023-12-24 06:55 | Outpatient (CLI) | payer OTHER ==
[2023-12-24 06:55] VITALS: BP 108/65; O2SAT 95
[~2023-12-24 06:55] MED LIST changes: +FLOM0.4C39 PO
[2023-12-24] MEDS ORDERED: SODIUM CHLORIDE 0.9% INJ 10 ML SYR IV PRN (07:05)
[2023-12-24] MEDS: MAG SULF 1GM/100ML (MAG RUN) IV ONE (07:10)
[2023-12-24] MEDS: SODIUM CHLORIDE 0.9% INJ 10 ML SYR IV SCH (07:11)
[2023-12-24] MEDS: MAG SULF 1GM/100ML (MAG RUN) IV SCH (08:23)
[2023-12-24 11:32] VITALS: BP 157/77; O2SAT 95
== END 2023-12-24 11:45 ==
LOC: M INFU 06:55
PROVIDERS: ATTEND Family Medicine
DX: E83.42 Hypomagnesemia (principal); Z88.3 Allergy status to other anti-infective agents; Z88.0 Allergy status to penicillin; Z88.2 Allergy status to sulfonamides; Z88.8 Allergy status to other drugs, medicaments and biological substances; Z88.1 Allergy status to other antibiotic agents; Z88.5 Allergy status to narcotic agent; Z91.89 Other specified personal risk factors, not elsewhere classified; Z91.041 Radiographic dye allergy status; Z91.040 Latex allergy status
CPT/HCPCS: 36591; 83735; 96365; 96366; J1642; J3475

== ENCOUNTER 2023-12-31 06:50 | Outpatient (CLI) | payer OTHER ==
[~2023-12-31] VITALS: Ht 170.2 cm; Wt 67.0 kg
[2023-12-31 07:00] VITALS: BP 135/72; O2SAT 95
[2023-12-31] MEDS ORDERED: SODIUM CHLORIDE 0.9% INJ 10 ML SYR IV PRN (07:00)
[2023-12-31] MEDS: SODIUM CHLORIDE 0.9% INJ 10 ML SYR IV SCH (07:11)
[2023-12-31] MEDS: MAG SULF 1GM/100ML (MAG RUN) IV ONE (07:12)
[2023-12-31] MEDS: MAG SULF 1GM/100ML (MAG RUN) IV SCH (08:12)
[2023-12-31] MEDS ORDERED: SODIUM CHLORIDE 0.9% INJ 10 ML SYR IV SCH (09:00)
[2023-12-31 11:35] VITALS: BP 141/70; O2SAT 95
== END 2023-12-31 11:35 ==
LOC: M INFU 06:50
PROVIDERS: ATTEND Family Medicine
DX: E83.42 Hypomagnesemia (principal); Z91.040 Latex allergy status; Z91.041 Radiographic dye allergy status; Z91.89 Other specified personal risk factors, not elsewhere classified; Z88.0 Allergy status to penicillin; Z88.2 Allergy status to sulfonamides; Z88.1 Allergy status to other antibiotic agents; Z88.5 Allergy status to narcotic agent; Z88.3 Allergy status to other anti-infective agents; Z88.8 Allergy status to other drugs, medicaments and biological substances
CPT/HCPCS: 36591; 83735; 96365; 96366; J1642; J3475

== ENCOUNTER 2024-01-04 18:32 | Inpatient (IN) | payer OTHER ==
[~2024-01-04] VITALS: Ht 170.2 cm; Wt 80.3 kg
[2024-01-04] MEDS ORDERED: SODIUM CHLORIDE 0.9% INJ 10 ML SYR IV PRN (19:30)
[2024-01-04 20:15] LABS: BASO # 0.1 10^3/uL (0.0-0.2); EOS # 0.1 10^3/uL (0.0-0.5); EOS % 1.4 % (0.0-3.0); HEMOGLOBIN 10.9 g/dl (12.0-15.5); LYMPH # 1.5 10^3/uL (1.5-5.0); MEAN CORPUSCULAR HEMOGLOBIN 31.1 pg (27.0-33.0); MEAN CORPUSCULAR HGB CONC 32.1 g/dl (32.0-36.5); MEAN CORPUSCULAR VOLUME 96.9 fl (80.0-96.0); MONO # 0.5 10^3/uL (0.0-0.8); MONO % 10.4 % (2.0-8.0); NEUTROPHILS # 2.9 10^3/uL (1.5-8.5); NEUTROPHILS % 56.4 % (36.0-66.0); PLATELET COUNT, AUTOMATED 210 10^3/uL (150-450); RED BLOOD COUNT 3.51 10^6/uL (4.00-5.40); WHITE BLOOD COUNT 5.1 10^3/uL (4.0-10.0)
[2024-01-04] MEDS: ONDANSETRON 4MG 2ML VIAL IV ONE (20:15)
[2024-01-04] MEDS: NS 1,000 ML IV SCH (20:15)
[2024-01-04] MEDS: HYDROMORPHONE HCL 0.5 MG/ 0.5 ML SYRINGE IV ONE (20:38)
[2024-01-04 20:51] LABS: LIPASE 28 U/L (12-53)
[2024-01-04 20:57] LABS: ALBUMIN 2.4 G/DL (3.2-5.2); ALKALINE PHOSPHATASE 70 U/L (46-116); ALT/SGPT 21 U/L (7.0-40); AST/SGOT 14 U/L (<34); BILIRUBIN,DIRECT < 0.1 MG/DL (<0.4); BILIRUBIN,TOTAL 0.2 MG/DL (0.3-1.2); BLOOD UREA NITROGEN 7 MG/DL (9-23); CALCIUM LEVEL 8.1 MG/DL (8.3-10.6); CARBON DIOXIDE LEVEL 24 MMOL/L (20-31); CHLORIDE LEVEL 112 MMOL/L (98-107); CREATININE FOR GFR 0.34 MG/DL (0.55-1.30); GLOMERULAR FILTRATION RATE > 60.0 (>45); GLUCOSE, FASTING 236 MG/DL (74-106); POTASSIUM SERUM 2.9 MMOL/L (3.5-5.1); SODIUM LEVEL 140 MMOL/L (136-145); TOTAL PROTEIN 5.8 G/DL (5.7-8.2)
[2024-01-04] MEDS: NYSTATIN 100,000 UNITS/GM TOPICAL PWD 15GM TOP SCH (21:00)
[2024-01-04] MEDS: LEVEMIR (INSULIN DETEMIR) 1 UNITS/0.01ML SC SCH (21:00)
[2024-01-04] MEDS: POTASSIUM CHLORIDE 10MEQ SR TABLET PO ONE (21:47)
[2024-01-04] MEDS: KCL 10MEQ/100ML SWI (KRUN) 10 MEQ in IV 1 EA IV ONE (21:48)
[2024-01-04] MEDS ORDERED: HOME MED LIST COMPLETE! XX SCH (23:10)
[2024-01-04] MEDS: ACETAMINOPHEN *IV* 1,000 MG in IV 1 EA IV ONE (23:27)
[2024-01-04] MEDS ORDERED: LACTULOSE 20GM/30ML SYRUP UDC PO PRN (23:40)
[2024-01-04] MEDS ORDERED: DEXTROSE 50% 50ML SYRINGE IV PRN (23:40)
[2024-01-04] MEDS ORDERED: SENOKOT S TAB PO PRN (23:40)
[2024-01-04] MEDS ORDERED: GLUCAGON INJ 1MG VIAL SC PRN (23:40)
[2024-01-04] MEDS ORDERED: GLUCOSE 4 GM CHEW PO PRN (23:40)
[2024-01-04] MEDS ORDERED: MIRALAX *UNIT DOSE* 17GM PACKET PO PRN (23:40)
[2024-01-04] MEDS ORDERED: IPRATROPIUM 0.5MG/ALBUTEROL 2.5MG INH SOL UD 3ML (DUONEB) INH PRN (23:40)
[2024-01-04] MEDS ORDERED: SODIUM CHLORIDE NASAL 0.65% SPRAY BTL (OCEAN) PRN (23:40)
[2024-01-05] MEDS: AMITRIPTYLINE 50 MG TAB PO SCH ×2 (00:29→11:12)
[2024-01-05] MEDS: ATORVASTATIN 20 MG TAB PO SCH (00:29)
[2024-01-05] MEDS: SIMETHICONE 80MG CHEW TAB PO SCH (00:29)
[2024-01-05] MEDS: FAMOTIDINE 20 MG TAB PO SCH (00:29)
[2024-01-05] MEDS: DICYCLOMINE 10 MG CAP PO SCH (00:31)
[2024-01-05] MEDS: HYDROMORPHONE HCL 0.5 MG/ 0.5 ML SYRINGE IV PRN (00:31)
[2024-01-05] MEDS: SCOPOLAMINE 1MG TRANSDERMAL PATCH TOP ONE (01:00)
[2024-01-05 01:21] LABS: MAGNESIUM LEVEL 1.1 MG/DL (1.8-2.4)
[2024-01-05] MEDS: KCL 40MEQ in NS 1000ML 1,000 ML IV SCH (01:52)
[2024-01-05] MEDS: MAG SULF 1GM/100ML (MAG RUN) 1 GM in IV 1 EA IV SCH ×2 (02:57→11:29)
[2024-01-05] MEDS: METOCLOPRAMIDE INJ 10MG/2ML VIAL IV PRN (06:44)
[2024-01-05] MEDS: VITAMIN D 1,000 INTERNATIONAL UNITS TABLET PO SCH (08:59)
[2024-01-05] MEDS: ACETAMINOPHEN *IV* 1,000 MG in IV 1 EA IV PRN (09:01)
[2024-01-05] MEDS: HEPARIN SOD (PORCINE) 5000UNITS/ML 1ML VIAL/SYRINGE SQ SCH (09:06)
[2024-01-05 09:13] LABS: BASO % 0.7 % (0.0-1.0); EOS # 0.1 10^3/uL (0.0-0.5); EOS % 2.1 % (0.0-3.0); HEMATOCRIT 36.6 % (36.0-47.0); HEMOGLOBIN 11.7 g/dl (12.0-15.5); LYMPH # 1.1 10^3/uL (1.5-5.0); LYMPH % 26.3 % (24.0-44.0); MEAN CORPUSCULAR HEMOGLOBIN 31.8 pg (27.0-33.0); MEAN CORPUSCULAR VOLUME 99.5 fl (80.0-96.0); MONO # 0.5 10^3/uL (0.0-0.8); MONO % 10.4 % (2.0-8.0); NEUTROPHILS # 2.6 10^3/uL (1.5-8.5); NEUTROPHILS % 59.8 % (36.0-66.0); PLATELET COUNT, AUTOMATED 208 10^3/uL (150-450); RED BLOOD COUNT 3.68 10^6/uL (4.00-5.40); WHITE BLOOD COUNT 4.3 10^3/uL (4.0-10.0)
[2024-01-05 09:28] LABS: ALBUMIN 3.1 G/DL (3.2-5.2); ALKALINE PHOSPHATASE 91 U/L (46-116); ALT/SGPT 26 U/L (7.0-40); AST/SGOT 19 U/L (<34); BILIRUBIN,TOTAL 0.3 MG/DL (0.3-1.2); BLOOD UREA NITROGEN 6 MG/DL (9-23); CALCIUM LEVEL 9.2 MG/DL (8.3-10.6); CARBON DIOXIDE LEVEL 27 MMOL/L (20-31); CHLORIDE LEVEL 106 MMOL/L (98-107); CREATININE FOR GFR 0.46 MG/DL (0.55-1.30); GLOMERULAR FILTRATION RATE > 60.0 (>45); GLUCOSE, FASTING 252 MG/DL (74-106); MAGNESIUM LEVEL 1.6 MG/DL (1.8-2.4); POTASSIUM SERUM 4.1 MMOL/L (3.5-5.1); SODIUM LEVEL 134 MMOL/L (136-145); TOTAL PROTEIN 6.9 G/DL (5.7-8.2)
[2024-01-05] MEDS: D5W/0.45% SODIUM CHLORIDE 1,000 ML IV SCH (09:38)
[2024-01-05] MEDS ORDERED: KCL 10MEQ/100ML SWI (KRUN) 10 MEQ in IV 1 EA IV SCH (13:00)
[2024-01-05] MEDS: NS 1,000 ML IV ONE (13:16)
[2024-01-05 14:36] VITALS: BP 130/69; TEMP 97.5; O2SAT 97
[2024-01-05 19:22] VITALS: BP 121/83; TEMP 97.3; O2SAT 96
[2024-01-05] MEDS: ALBUTEROL 90 MCG/ACT 8GM HFA INHALER INH PRN (20:20)
[2024-01-05] MEDS ORDERED: INSULIN LISPRO (NovoLOG) PER UNIT SC SCH (21:00)
[2024-01-06] MEDS ORDERED: NS 1,000 ML IV ONE
[2024-01-06] MEDS: NS 1,000 ML IV ONE (00:04)
[2024-01-06] MEDS: INSULIN LISPRO (NovoLOG) PER UNIT SC SCH (00:31)
[2024-01-06 01:11] VITALS: BP 136/89; TEMP 97.5; O2SAT 96
[2024-01-06 03:59] VITALS: BP 107/61; TEMP 97.5; O2SAT 98
[2024-01-06 06:30] LABS: BASO % 0.5 % (0.0-1.0); EOS # 0.1 10^3/uL (0.0-0.5); EOS % 2.5 % (0.0-3.0); HEMOGLOBIN 11.3 g/dl (12.0-15.5); LYMPH # 0.8 10^3/uL (1.5-5.0); LYMPH % 19.1 % (24.0-44.0); MEAN CORPUSCULAR HEMOGLOBIN 31.1 pg (27.0-33.0); MEAN CORPUSCULAR HGB CONC 31.4 g/dl (32.0-36.5); MEAN CORPUSCULAR VOLUME 99.2 fl (80.0-96.0); MONO # 0.5 10^3/uL (0.0-0.8); MONO % 11.6 % (2.0-8.0); NEUTROPHILS # 2.6 10^3/uL (1.5-8.5); NEUTROPHILS % 65.8 % (36.0-66.0); PLATELET COUNT, AUTOMATED 171 10^3/uL (150-450); RED BLOOD COUNT 3.63 10^6/uL (4.00-5.40)
[2024-01-06 06:48] LABS: BLOOD UREA NITROGEN < 5 MG/DL (9-23); CALCIUM LEVEL 8.3 MG/DL (8.3-10.6); CARBON DIOXIDE LEVEL 22 MMOL/L (20-31); CHLORIDE LEVEL 109 MMOL/L (98-107); CREATININE FOR GFR 0.38 MG/DL (0.55-1.30); GLOMERULAR FILTRATION RATE > 60.0 (>45); GLUCOSE, FASTING 167 MG/DL (74-106); MAGNESIUM LEVEL 1.6 MG/DL (1.8-2.4); POTASSIUM SERUM 3.8 MMOL/L (3.5-5.1); SODIUM LEVEL 137 MMOL/L (136-145)
[2024-01-06] MEDS: FLUBLOK(EGGFREE) TRIVAL(24-25) VACCINE PF 0.5ML SYRINGE 18YRS & OLDER IM.IMMUN ONE (08:55)
[2024-01-06] MEDS: KCL 20MEQ IN D5/0.45NS 1000ML 1,000 ML IV SCH (11:08)
[2024-01-06] MEDS: MAG SULF 1GM/100ML (MAG RUN) 1 GM in IV 1 EA IV ONE (11:09)
[2024-01-06 12:00] VITALS: BP 144/81; TEMP 97.5; O2SAT 98
[2024-01-06] MEDS: METOCLOPRAMIDE 10MG TAB PO SCH (13:17)
[2024-01-07 03:50] VITALS: BP 126/69; TEMP 97.3; O2SAT 96
[2024-01-07 07:40] LABS: BASO % 0.5 % (0.0-1.0); EOS # 0.1 10^3/uL (0.0-0.5); EOS % 1.8 % (0.0-3.0); HEMATOCRIT 34.7 % (36.0-47.0); HEMOGLOBIN 10.9 g/dl (12.0-15.5); LYMPH # 1.1 10^3/uL (1.5-5.0); LYMPH % 28.2 % (24.0-44.0); MEAN CORPUSCULAR HEMOGLOBIN 30.7 pg (27.0-33.0); MEAN CORPUSCULAR HGB CONC 31.4 g/dl (32.0-36.5); MEAN CORPUSCULAR VOLUME 97.7 fl (80.0-96.0); MONO # 0.4 10^3/uL (0.0-0.8); MONO % 10.5 % (2.0-8.0); NEUTROPHILS # 2.2 10^3/uL (1.5-8.5); NEUTROPHILS % 58.5 % (36.0-66.0); PLATELET COUNT, AUTOMATED 189 10^3/uL (150-450); RED BLOOD COUNT 3.55 10^6/uL (4.00-5.40); WHITE BLOOD COUNT 3.8 10^3/uL (4.0-10.0)
[2024-01-07 08:00] VITALS: BP 142/78; TEMP 97.3; O2SAT 96
[2024-01-07 08:12] LABS: BLOOD UREA NITROGEN < 5 MG/DL (9-23); CALCIUM LEVEL 9.1 MG/DL (8.3-10.6); CARBON DIOXIDE LEVEL 24 MMOL/L (20-31); CHLORIDE LEVEL 111 MMOL/L (98-107); CREATININE FOR GFR 0.39 MG/DL (0.55-1.30); GLOMERULAR FILTRATION RATE > 60.0 (>45); GLUCOSE, FASTING 152 MG/DL (74-106); MAGNESIUM LEVEL 1.7 MG/DL (1.8-2.4); SODIUM LEVEL 141 MMOL/L (136-145)
[2024-01-07 12:00] VITALS: BP 136/71; TEMP 97.9; O2SAT 97
[2024-01-07 20:00] VITALS: BP 136/72; TEMP 97.7; O2SAT 95
[2024-01-07] MEDS: CAPSAICIN 0.025% CR 60 GM TOP SCH (20:01)
[2024-01-08 04:00] VITALS: BP 135/73; TEMP 97.3; O2SAT 97
[2024-01-08 05:56] LABS: BASO % 0.4 % (0.0-1.0); EOS # 0.1 10^3/uL (0.0-0.5); EOS % 1.3 % (0.0-3.0); HEMATOCRIT 34.2 % (36.0-47.0); HEMOGLOBIN 10.9 g/dl (12.0-15.5); LYMPH # 1.5 10^3/uL (1.5-5.0); LYMPH % 28.2 % (24.0-44.0); MEAN CORPUSCULAR HEMOGLOBIN 31.1 pg (27.0-33.0); MEAN CORPUSCULAR HGB CONC 31.9 g/dl (32.0-36.5); MEAN CORPUSCULAR VOLUME 97.7 fl (80.0-96.0); MONO # 0.5 10^3/uL (0.0-0.8); MONO % 9.8 % (2.0-8.0); NEUTROPHILS # 3.1 10^3/uL (1.5-8.5); NEUTROPHILS % 59.5 % (36.0-66.0); PLATELET COUNT, AUTOMATED 196 10^3/uL (150-450); WHITE BLOOD COUNT 5.3 10^3/uL (4.0-10.0)
[2024-01-08 06:25] LABS: BLOOD UREA NITROGEN < 5 MG/DL (9-23); CALCIUM LEVEL 9.3 MG/DL (8.3-10.6); CARBON DIOXIDE LEVEL 26 MMOL/L (20-31); CHLORIDE LEVEL 109 MMOL/L (98-107); CREATININE FOR GFR 0.47 MG/DL (0.55-1.30); GLOMERULAR FILTRATION RATE > 60.0 (>45); GLUCOSE, FASTING 172 MG/DL (74-106); MAGNESIUM LEVEL 1.5 MG/DL (1.8-2.4); POTASSIUM SERUM 4.1 MMOL/L (3.5-5.1); SODIUM LEVEL 138 MMOL/L (136-145)
[2024-01-08] MEDS: INSULIN LISPRO (NovoLOG) PER UNIT SC SCH (07:13)
[2024-01-08] MEDS: MAG SULF 1GM/100ML (MAG RUN) 1 GM in IV 1 EA IV ONE (08:40)
[2024-01-08 11:39] VITALS: BP 130/74; TEMP 97.7; O2SAT 96
[2024-01-08] MEDS: SODIUM CHLORIDE 0.9% INJ 10 ML SYR IV PRN (14:13)
[2024-01-08] MEDS ORDERED: INSULIN LISPRO (NovoLOG) PER UNIT SC SCH (21:00)
== END 2024-01-08 14:41 | disposition home or self-care (01) | DRG 425 ==
LOC: EDBD 18:32 → M ED 18:32 → M ED INP 23:37 → M MSPAV 01-05 14:37
PROVIDERS: ADMIT Preventive Medicine Undersea and Hyperbaric Medicine; ATTEND Internal Medicine
DX: E87.6 Hypokalemia (principal); E11.43 Type 2 diabetes mellitus with diabetic autonomic (poly)neuropathy; E87.20 Acidosis, unspecified; K31.84 Gastroparesis; E11.65 Type 2 diabetes mellitus with hyperglycemia; E83.42 Hypomagnesemia; E78.5 Hyperlipidemia, unspecified; G89.4 Chronic pain syndrome; I10 Essential (primary) hypertension; J45.909 Unspecified asthma, uncomplicated; M19.90 Unspecified osteoarthritis, unspecified site; R10.9 Unspecified abdominal pain; Z79.4 Long term (current) use of insulin; G43.909 Migraine, unspecified, not intractable, without status migrainosus; F32.A Depression, unspecified; Z91.040 Latex allergy status; Z88.0 Allergy status to penicillin; Z88.2 Allergy status to sulfonamides; Z91.018 Allergy to other foods; Z88.5 Allergy status to narcotic agent; Z79.899 Other long term (current) drug therapy; Z93.3 Colostomy status

== ENCOUNTER 2024-01-14 06:50 | Outpatient (CLI) | payer OTHER ==
[~2024-01-14] VITALS: Ht 170.2 cm; Wt 77.3 kg
[2024-01-14 07:00] VITALS: BP 135/76; O2SAT 95
[2024-01-14] MEDS: MAG SULF 1GM/100ML (MAG RUN) IV ONE (07:18)
[2024-01-14] MEDS: SODIUM CHLORIDE 0.9% INJ 10 ML SYR IV PRN (07:18)
[2024-01-14 07:52] LABS: MAGNESIUM LEVEL 1.4 MG/DL (1.8-2.4)
[2024-01-14] MEDS: MAG SULF 1GM/100ML (MAG RUN) IV SCH (08:29)
[2024-01-14 11:10] LABS: BLOOD UREA NITROGEN 13 MG/DL (9-23); CALCIUM LEVEL 9.7 MG/DL (8.3-10.6); CARBON DIOXIDE LEVEL 27 MMOL/L (20-31); CHLORIDE LEVEL 103 MMOL/L (98-107); CREATININE FOR GFR 0.56 MG/DL (0.55-1.30); GLOMERULAR FILTRATION RATE > 60.0 (>45); GLUCOSE, FASTING 246 MG/DL (74-106); POTASSIUM SERUM 3.9 MMOL/L (3.5-5.1); SODIUM LEVEL 136 MMOL/L (136-145)
== END 2024-01-14 11:55 ==
LOC: M INFU 06:50
PROVIDERS: ATTEND Family Medicine
DX: E83.42 Hypomagnesemia (principal); Z88.0 Allergy status to penicillin; Z88.1 Allergy status to other antibiotic agents; Z88.2 Allergy status to sulfonamides; Z88.6 Allergy status to analgesic agent; Z88.8 Allergy status to other drugs, medicaments and biological substances; Z91.041 Radiographic dye allergy status; Z91.048 Other nonmedicinal substance allergy status
CPT/HCPCS: 36415; 80048; 83735; 96365; 96366; 96367; J1642; J3475

== ENCOUNTER → 2024-01-14 | Outpatient (CLI) | payer OTHER ==
[~2024-01-14] MED LIST changes: -DOXY-323 PO; +DOXY-441 PO; -SIME180C25 PO; +SIME1CAP4 PO
== END ==
LOC: M PAIN 14:15
PROVIDERS: ATTEND Anesthesiology
DX: R10.9 Unspecified abdominal pain (principal); M79.18 Myalgia, other site; E11.40 Type 2 diabetes mellitus with diabetic neuropathy, unspecified; J45.909 Unspecified asthma, uncomplicated; E78.5 Hyperlipidemia, unspecified; K21.9 Gastro-esophageal reflux disease without esophagitis; J32.0 Chronic maxillary sinusitis; G89.4 Chronic pain syndrome; Z79.82 Long term (current) use of aspirin; Z79.899 Other long term (current) drug therapy; Z88.0 Allergy status to penicillin; Z88.1 Allergy status to other antibiotic agents; Z88.2 Allergy status to sulfonamides; Z88.5 Allergy status to narcotic agent; Z88.8 Allergy status to other drugs, medicaments and biological substances; Z91.041 Radiographic dye allergy status; Z88.4 Allergy status to anesthetic agent

== ENCOUNTER → 2024-01-20 | Outpatient (CLI) | payer OTHER | LOC: M PAIN 12:30 | PROVIDERS: ATTEND Anesthesiology | DX: M51.16 Intervertebral disc disorders with radiculopathy, lumbar region (principal); R10.9 Unspecified abdominal pain; M79.10 Myalgia, unspecified site; M79.18 Myalgia, other site; G89.29 Other chronic pain; E11.40 Type 2 diabetes mellitus with diabetic neuropathy, unspecified; J45.909 Unspecified asthma, uncomplicated; E78.5 Hyperlipidemia, unspecified; K21.9 Gastro-esophageal reflux disease without esophagitis; J32.0 Chronic maxillary sinusitis; G89.4 Chronic pain syndrome; Z79.82 Long term (current) use of aspirin; Z79.891 Long term (current) use of opiate analgesic; Z79.899 Other long term (current) drug therapy; Z88.0 Allergy status to penicillin; Z88.1 Allergy status to other antibiotic agents; Z88.5 Allergy status to narcotic agent; Z88.6 Allergy status to analgesic agent; Z88.8 Allergy status to other drugs, medicaments and biological substances; Z91.041 Radiographic dye allergy status ==

== ENCOUNTER → 2024-01-20 | Outpatient (CLI) | payer OTHER | LOC: M WHC 10:47 | PROVIDERS: ATTEND Family Medicine | DX: Z12.31 Encounter for screening mammogram for malignant neoplasm of breast (principal) ==

== ENCOUNTER 2024-01-21 06:45 | Outpatient (CLI) | payer OTHER ==
[~2024-01-21] VITALS: Ht 170.2 cm; Wt 77.0 kg
[2024-01-21 07:00] VITALS: BP 112/55; O2SAT 94
[2024-01-21] MEDS ORDERED: MAG SULF 1GM/100ML (MAG RUN) IV SCH (07:00)
[2024-01-21] MEDS ORDERED: SODIUM CHLORIDE 0.9% INJ 10 ML SYR IV PRN (07:00)
[2024-01-21] MEDS: MAG SULF 1GM/100ML (MAG RUN) IV ONE (07:14)
[2024-01-21] MEDS: SODIUM CHLORIDE 0.9% INJ 10 ML SYR IV SCH (07:14)
[2024-01-21] MEDS: MAG SULF 1GM/100ML (MAG RUN) IV SCH (08:08)
[2024-01-21] MEDS ORDERED: SODIUM CHLORIDE 0.9% INJ 10 ML SYR IV SCH (09:00)
== END 2024-01-21 11:20 ==
LOC: M INFU 06:45
PROVIDERS: ATTEND Family Medicine
DX: E83.42 Hypomagnesemia (principal); Z88.0 Allergy status to penicillin; Z88.2 Allergy status to sulfonamides; Z88.1 Allergy status to other antibiotic agents; Z88.5 Allergy status to narcotic agent; Z88.3 Allergy status to other anti-infective agents; Z88.8 Allergy status to other drugs, medicaments and biological substances; Z91.89 Other specified personal risk factors, not elsewhere classified; Z91.040 Latex allergy status; Z91.041 Radiographic dye allergy status
CPT/HCPCS: 36591; 83735; 96365; 96366; J1642; J3475

== ENCOUNTER 2024-01-28 06:12 | Outpatient (CLI) | payer OTHER ==
[~2024-01-28] VITALS: Ht 165.1 cm; Wt 76.0 kg
[2024-01-28 07:00] VITALS: BP 135/64; O2SAT 97
[2024-01-28] MEDS: MAG SULF 1GM/100ML (MAG RUN) IV ONE (07:05)
[2024-01-28] MEDS: SODIUM CHLORIDE 0.9% INJ 10 ML SYR IV PRN (07:06)
[2024-01-28] MEDS: MAG SULF 1GM/100ML (MAG RUN) IV SCH (08:04)
[2024-01-28 08:07] LABS: BLOOD UREA NITROGEN 12 MG/DL (9-23); CARBON DIOXIDE LEVEL 29 MMOL/L (20-31); CHLORIDE LEVEL 102 MMOL/L (98-107); CREATININE FOR GFR 0.46 MG/DL (0.55-1.30); GLOMERULAR FILTRATION RATE > 60.0 (>45); GLUCOSE, FASTING 296 MG/DL (74-106); PHOSPHORUS LEVEL 3.9 MG/DL (2.4-5.1); POTASSIUM SERUM 3.9 MMOL/L (3.5-5.1); SODIUM LEVEL 134 MMOL/L (136-145)
[2024-01-28 11:20] VITALS: BP 118/58; O2SAT 93
== END 2024-01-28 11:20 ==
LOC: M INFU 06:12
PROVIDERS: ATTEND Family Medicine
DX: E83.42 Hypomagnesemia (principal); Z88.0 Allergy status to penicillin; Z88.1 Allergy status to other antibiotic agents; Z88.3 Allergy status to other anti-infective agents; Z88.5 Allergy status to narcotic agent; Z88.6 Allergy status to analgesic agent; Z88.8 Allergy status to other drugs, medicaments and biological substances; Z91.89 Other specified personal risk factors, not elsewhere classified; Z91.040 Latex allergy status; Z91.041 Radiographic dye allergy status
CPT/HCPCS: 80069; 83735; 96365; 96366; J1642; J3475

== ENCOUNTER 2024-02-02 11:13 | Emergency (ER) | payer OTHER ==
[~2024-02-02] VITALS: Ht 167.6 cm; Wt 72.7 kg
[2024-02-02] MEDS: CEFDINIR 300 MG CAP (OMNICEF) PO ONE (13:38)
[2024-02-02] MEDS ORDERED: CEFD1CAP9 PO (13:38)
[2024-02-02 13:39] VITALS: BP 101/58; TEMP 97.1; O2SAT 93
== END 2024-02-02 14:04 | disposition home or self-care (01) ==
LOC: M ED 11:13
DX: N39.0 Urinary tract infection, site not specified (principal); K21.9 Gastro-esophageal reflux disease without esophagitis; E78.5 Hyperlipidemia, unspecified; Z86.73 Personal history of transient ischemic attack (TIA), and cerebral infarction without residual deficits; Z87.442 Personal history of urinary calculi; Z79.4 Long term (current) use of insulin; Z79.899 Other long term (current) drug therapy; Z88.0 Allergy status to penicillin; Z88.1 Allergy status to other antibiotic agents; Z88.2 Allergy status to sulfonamides; Z88.3 Allergy status to other anti-infective agents; Z88.5 Allergy status to narcotic agent; Z88.8 Allergy status to other drugs, medicaments and biological substances; Z91.89 Other specified personal risk factors, not elsewhere classified; Z91.041 Radiographic dye allergy status; Z91.040 Latex allergy status; Z91.018 Allergy to other foods

== ENCOUNTER 2024-02-04 06:55 | Outpatient (CLI) | payer OTHER ==
[~2024-02-04] VITALS: Ht 167.6 cm; Wt 68.2 kg
[2024-02-04 07:00] VITALS: BP 139/65; O2SAT 92
[2024-02-04] MEDS ORDERED: SODIUM CHLORIDE 0.9% INJ 10 ML SYR IV PRN (07:00)
[2024-02-04] MEDS: SODIUM CHLORIDE 0.9% INJ 10 ML SYR IV SCH (07:14)
[2024-02-04] MEDS: MAG SULF 1GM/100ML (MAG RUN) IV ONE (07:14)
[2024-02-04] MEDS: MAG SULF 1GM/100ML (MAG RUN) IV SCH (08:14)
[2024-02-04 11:30] VITALS: BP 128/65; O2SAT 94
[2024-02-05] MEDS ORDERED: SENN-186 PO (02:56)
[2024-02-05] MEDS ORDERED: LOTE5DRO9 OU (02:56)
== END 2024-02-04 11:30 ==
LOC: M INFU 06:55
PROVIDERS: ATTEND Family Medicine
DX: E83.42 Hypomagnesemia (principal); Z88.0 Allergy status to penicillin; Z88.1 Allergy status to other antibiotic agents; Z88.2 Allergy status to sulfonamides; Z88.3 Allergy status to other anti-infective agents; Z88.5 Allergy status to narcotic agent; Z88.8 Allergy status to other drugs, medicaments and biological substances; Z91.041 Radiographic dye allergy status; Z91.040 Latex allergy status; Z91.89 Other specified personal risk factors, not elsewhere classified
CPT/HCPCS: 36591; 83735; 96365; 96366; J1642; J3475

== ENCOUNTER 2024-02-04 18:36 | Inpatient (IN) | payer OTHER ==
[~2024-02-04] VITALS: Ht 170.2 cm; Wt 77.6 kg
[2024-02-04 19:30] LABS: BASO % 0.3 % (0.0-1.0); EOS % 0.6 % (0.0-3.0); HEMATOCRIT 34.8 % (36.0-47.0); HEMOGLOBIN 11.4 g/dl (12.0-15.5); LYMPH # 0.4 10^3/uL (1.5-5.0); LYMPH % 5.2 % (24.0-44.0); MEAN CORPUSCULAR HEMOGLOBIN 31.6 pg (27.0-33.0); MEAN CORPUSCULAR HGB CONC 32.8 g/dl (32.0-36.5); MEAN CORPUSCULAR VOLUME 96.4 fl (80.0-96.0); MONO # 0.5 10^3/uL (0.0-0.8); MONO % 7.5 % (2.0-8.0); PLATELET COUNT, AUTOMATED 170 10^3/uL (150-450); RED BLOOD COUNT 3.61 10^6/uL (4.00-5.40); WHITE BLOOD COUNT 6.9 10^3/uL (4.0-10.0)
[2024-02-04 19:53] LABS: INR 1.1; PROTHROMBIN TIME 13.9 SECONDS (12.5-14.5)
[2024-02-04 20:18] LABS: BLOOD UREA NITROGEN 6 MG/DL (9-23); CALCIUM LEVEL 9.7 MG/DL (8.3-10.6); CARBON DIOXIDE LEVEL 29 MMOL/L (20-31); CHLORIDE LEVEL 97 MMOL/L (98-107); CK-MB VALUE MASS < 1.0 NG/ML (<3.6); CPK CREATINE PHOSPHOKINASE 100 U/L (34-145); CREATININE FOR GFR 0.45 MG/DL (0.55-1.30); GLOMERULAR FILTRATION RATE > 60.0 (>45); GLUCOSE, FASTING 176 MG/DL (74-106); MAGNESIUM LEVEL 1.8 MG/DL (1.8-2.4); POTASSIUM SERUM 3.8 MMOL/L (3.5-5.1); SODIUM LEVEL 131 MMOL/L (136-145); THYROID STIMULATING HORMONE 1.635 uIU/ML (0.55-4.78)
[2024-02-04] MEDS: cefTRIAXone SOD 2 GM in DEXTROSE 5% (D5W) ADV/MINI-BAG 50 ML IV ONE (22:20)
[2024-02-04] MEDS: NS 2,460 ML in IV 1 EA IV ONE (23:35)
[2024-02-04] MEDS: ACETAMINOPHEN 500 MG TAB PO ONE (23:35)
[2024-02-05] VITALS (14 sets, daily range): BP systolic 103–144; BP diastolic 64–91; TEMP 98.1–101.5; O2SAT 91–96
[2024-02-05] MEDS ORDERED: GLUCOSE 4 GM CHEW PO PRN (01:30)
[2024-02-05] MEDS ORDERED: NALOXONE INJ 0.4MG/1ML VIAL IV PRN (01:30)
[2024-02-05] MEDS ORDERED: DEXTROSE 50% 50ML SYRINGE IV PRN (01:30)
[2024-02-05] MEDS ORDERED: GLUCAGON INJ 1MG VIAL SC PRN (01:30)
[2024-02-05] MEDS: HYDROMORPHONE HCL 0.5 MG/ 0.5 ML SYRINGE IV PRN ×2 (02:48→22:12)
[2024-02-05] MEDS ORDERED: LOTE5DRO9 OU (02:56)
[2024-02-05] MEDS ORDERED: SENN-186 PO (02:56)
[2024-02-05] MEDS ORDERED: HOME MED LIST COMPLETE! XX SCH (03:00)
[2024-02-05] MEDS: HEPARIN SOD (PORCINE) 5000UNITS/ML 1ML VIAL/SYRINGE SQ SCH (06:25)
[2024-02-05 08:03] LABS: BASO % 0.3 % (0.0-1.0); EOS % 0.1 % (0.0-3.0); HEMATOCRIT 34.9 % (36.0-47.0); HEMOGLOBIN 11.1 g/dl (12.0-15.5); LYMPH # 0.3 10^3/uL (1.5-5.0); LYMPH % 3.8 % (24.0-44.0); MEAN CORPUSCULAR HEMOGLOBIN 30.8 pg (27.0-33.0); MEAN CORPUSCULAR HGB CONC 31.8 g/dl (32.0-36.5); MEAN CORPUSCULAR VOLUME 96.9 fl (80.0-96.0); MONO # 1.3 10^3/uL (0.0-0.8); MONO % 17.8 % (2.0-8.0); NEUTROPHILS # 5.6 10^3/uL (1.5-8.5); NEUTROPHILS % 77.6 % (36.0-66.0); PLATELET COUNT, AUTOMATED 154 10^3/uL (150-450); WHITE BLOOD COUNT 7.2 10^3/uL (4.0-10.0)
[2024-02-05 08:25] LABS: BLOOD UREA NITROGEN 6 MG/DL (9-23); CALCIUM LEVEL 9.1 MG/DL (8.3-10.6); CARBON DIOXIDE LEVEL 29 MMOL/L (20-31); CHLORIDE LEVEL 103 MMOL/L (98-107); CREATININE FOR GFR 0.51 MG/DL (0.55-1.30); GLOMERULAR FILTRATION RATE > 60.0 (>45); GLUCOSE, FASTING 158 MG/DL (74-106); MAGNESIUM LEVEL 1.8 MG/DL (1.8-2.4); POTASSIUM SERUM 3.7 MMOL/L (3.5-5.1); SODIUM LEVEL 135 MMOL/L (136-145)
[2024-02-05] MEDS: INSULIN LISPRO (NovoLOG) PER UNIT SC SCH ×2 (08:58→21:00)
[2024-02-05] MEDS: ACETAMINOPHEN 325 MG TAB PO PRN (08:58)
[2024-02-05] MEDS: SODIUM CHLORIDE 0.9% INJ 10 ML SYR IV SCH (08:59)
[2024-02-05] MEDS ORDERED: VANCOMYCIN 1,500 MG/300 ML IV BAG *LOAD IV ONE (11:05)
[2024-02-05] MEDS: METOCLOPRAMIDE INJ 10MG/2ML VIAL IV PRN (11:05)
[2024-02-05] MEDS: SODIUM CHLORIDE 0.9% INJ 10 ML SYR IV PRN (11:06)
[2024-02-05] MEDS: VANCOMYCIN 1,500 MG/300 ML IV BAG *LOAD IV ONE (12:18)
[2024-02-05] MEDS: NS 500 ML IV ONE (14:31)
[2024-02-05] MEDS: VANCOMYCIN 750MG/150 ML IV BAG IV SCH (17:40)
[2024-02-05] MEDS: cefTRIAXone SOD 1 GM in DEXTROSE 5% (D5W) ADV/MINI-BAG 50 ML IV SCH (20:59)
[2024-02-06] VITALS: BP 120/63; TEMP 98.5; O2SAT 92
[2024-02-06 04:00] VITALS: BP 123/67; TEMP 97.2; O2SAT 95
[2024-02-06 06:26] LABS: BASO % 0.4 % (0.0-1.0); EOS % 0.4 % (0.0-3.0); HEMATOCRIT 32.9 % (36.0-47.0); HEMOGLOBIN 10.4 g/dl (12.0-15.5); LYMPH # 0.6 10^3/uL (1.5-5.0); LYMPH % 11.9 % (24.0-44.0); MEAN CORPUSCULAR HGB CONC 31.6 g/dl (32.0-36.5); MEAN CORPUSCULAR VOLUME 98.2 fl (80.0-96.0); MONO # 0.7 10^3/uL (0.0-0.8); MONO % 12.9 % (2.0-8.0); NEUTROPHILS # 3.8 10^3/uL (1.5-8.5); NEUTROPHILS % 73.8 % (36.0-66.0); PLATELET COUNT, AUTOMATED 145 10^3/uL (150-450); RED BLOOD COUNT 3.35 10^6/uL (4.00-5.40); WHITE BLOOD COUNT 5.1 10^3/uL (4.0-10.0)
[2024-02-06 06:48] LABS: VANCOMYCIN RANDOM 18.1 UG/ML
[2024-02-06 06:50] LABS: ALBUMIN 2.5 G/DL (3.2-5.2); ALKALINE PHOSPHATASE 110 U/L (46-116); ALT/SGPT 79 U/L (7.0-40); AST/SGOT 94 U/L (<34); BILIRUBIN,TOTAL 0.4 MG/DL (0.3-1.2); BLOOD UREA NITROGEN 9 MG/DL (9-23); CALCIUM LEVEL 9.1 MG/DL (8.3-10.6); CARBON DIOXIDE LEVEL 28 MMOL/L (20-31); CHLORIDE LEVEL 97 MMOL/L (98-107); CREATININE FOR GFR 0.49 MG/DL (0.55-1.30); GLOMERULAR FILTRATION RATE > 60.0 (>45); GLUCOSE, FASTING 260 MG/DL (74-106); MAGNESIUM LEVEL 1.6 MG/DL (1.8-2.4); SODIUM LEVEL 129 MMOL/L (136-145); TOTAL PROTEIN 6.4 G/DL (5.7-8.2)
[2024-02-06] MEDS: MAG SULF 1GM/100ML (MAG RUN) 1 GM in IV 1 EA IV SCH (08:25)
[2024-02-06] MEDS ORDERED: ALBUTEROL 90 MCG/ACT 8GM HFA INHALER INH PRN (08:50)
[2024-02-06] MEDS ORDERED: IPRATROPIUM 0.5MG/ALBUTEROL 2.5MG INH SOL UD 3ML (DUONEB) INH PRN (08:50)
[2024-02-06 09:31] VITALS: BP 123/67; TEMP 97.6; O2SAT 93
[2024-02-06] MEDS: NYSTATIN 100,000 UNITS/GM TOPICAL PWD 15GM TOP SCH (09:42)
[2024-02-06] MEDS: VANCOMYCIN 1,250 MG/250 ML IV BAG IV SCH (11:19)
[2024-02-06 12:00] VITALS: BP 122/65; TEMP 96.8; O2SAT 93
[2024-02-06] MEDS: ONDANSETRON 4MG 2ML VIAL IV PRN (13:06)
[2024-02-06] MEDS: FLUCONAZOLE 50MG TABLET PO SCH (13:06)
[2024-02-06] MEDS: LACTULOSE 20GM/30ML SYRUP UDC PO SCH (16:00)
[2024-02-06] MEDS ORDERED: METO10TA2 PO (19:38)
[2024-02-06 20:00] VITALS: BP 123/69; TEMP 97.3; O2SAT 95; O2SAT 96
[2024-02-06] MEDS: METOCLOPRAMIDE 10MG TAB PO SCH (20:06)
[2024-02-06] MEDS ORDERED: LEVEMIR (INSULIN DETEMIR) 1 UNITS/0.01ML SC SCH (21:00)
[2024-02-06] MEDS: LEVEMIR (INSULIN DETEMIR) 1 UNITS/0.01ML SC SCH (21:33)
[2024-02-07] VITALS (8 sets, daily range): BP systolic 100–131; BP diastolic 59–72; TEMP 97.2–99.6; O2SAT 94–97
[2024-02-07 07:00] LABS: ALBUMIN 2.6 G/DL (3.2-5.2); ALKALINE PHOSPHATASE 122 U/L (35-104); ALT/SGPT 80 U/L (7.0-40); AST/SGOT 69 U/L (<34); BILIRUBIN,TOTAL 0.3 MG/DL (0.3-1.2); BLOOD UREA NITROGEN 7 MG/DL (9-23); CALCIUM LEVEL 9.4 MG/DL (8.3-10.6); CARBON DIOXIDE LEVEL 27 MMOL/L (20-31); CHLORIDE LEVEL 100 MMOL/L (98-107); CREATININE FOR GFR 0.35 MG/DL (0.55-1.30); GLOMERULAR FILTRATION RATE > 60.0 (>45); GLUCOSE, FASTING 226 MG/DL (74-106); MAGNESIUM LEVEL 1.7 MG/DL (1.8-2.4); POTASSIUM SERUM 3.6 MMOL/L (3.5-5.1); SODIUM LEVEL 135 MMOL/L (136-145); TOTAL PROTEIN 6.8 G/DL (5.7-8.2)
[2024-02-07] MEDS: MAG SULF 1GM/100ML (MAG RUN) 1 GM in IV 1 EA IV SCH (08:35)
[2024-02-07] MEDS: FLUCONAZOLE 100 MG TAB PO SCH (08:35)
[2024-02-07] MEDS: LEVEMIR (INSULIN DETEMIR) 1 UNITS/0.01ML SC SCH (21:32)
[2024-02-08] VITALS (8 sets, daily range): BP systolic 118–126; BP diastolic 57–69; TEMP 97.2–97.9; O2SAT 92–96
[2024-02-08 05:06] LABS: HEMATOCRIT 31.8 % (36.0-47.0); HEMOGLOBIN 10.3 g/dl (12.0-15.5); MEAN CORPUSCULAR HEMOGLOBIN 30.7 pg (27.0-33.0); MEAN CORPUSCULAR HGB CONC 32.4 g/dl (32.0-36.5); MEAN CORPUSCULAR VOLUME 94.9 fl (80.0-96.0); PLATELET COUNT, AUTOMATED 184 10^3/uL (150-450); RED BLOOD COUNT 3.35 10^6/uL (4.00-5.40); WHITE BLOOD COUNT 5.2 10^3/uL (4.0-10.0)
[2024-02-08] MEDS: POTASSIUM CHLORIDE 10MEQ SR TABLET PO SCH (09:00)
[2024-02-08 10:14] LABS: ALBUMIN 2.5 G/DL (3.2-5.2); ALKALINE PHOSPHATASE 139 U/L (35-104); ALT/SGPT 74 U/L (7.0-40); AST/SGOT 64 U/L (<34); BILIRUBIN,TOTAL 0.2 MG/DL (0.3-1.2); BLOOD UREA NITROGEN 8 MG/DL (9-23); CALCIUM LEVEL 9.4 MG/DL (8.3-10.6); CARBON DIOXIDE LEVEL 27 MMOL/L (20-31); CHLORIDE LEVEL 103 MMOL/L (98-107); CREATININE FOR GFR 0.37 MG/DL (0.55-1.30); GLOMERULAR FILTRATION RATE > 60.0 (>45); GLUCOSE, FASTING 284 MG/DL (74-106); MAGNESIUM LEVEL 1.7 MG/DL (1.8-2.4); POTASSIUM SERUM 3.7 MMOL/L (3.5-5.1); SODIUM LEVEL 134 MMOL/L (136-145); TOTAL PROTEIN 6.7 G/DL (5.7-8.2)
[2024-02-08] MEDS: MAG SULF 1GM/100ML (MAG RUN) 1 GM in IV 1 EA IV SCH (10:58)
[2024-02-08] MEDS ORDERED: MAG SULF 1GM/100ML (MAG RUN) 1 GM in IV 1 EA IV SCH (14:00)
[2024-02-08] MEDS: FLUTICASONE PROP 0.05% NASAL SPRAY 16 GM (FLONASE) NARES SCH (14:24)
[2024-02-08] MEDS: LEVEMIR (INSULIN DETEMIR) 1 UNITS/0.01ML SC SCH (21:57)
[2024-02-09 03:20] VITALS: BP 120/60; TEMP 97.7; O2SAT 94
[2024-02-09 05:15] LABS: BASO % 0.6 % (0.0-1.0); EOS # 0.1 10^3/uL (0.0-0.5); EOS % 2.4 % (0.0-3.0); HEMATOCRIT 33.5 % (36.0-47.0); HEMOGLOBIN 10.8 g/dl (12.0-15.5); LYMPH # 1.5 10^3/uL (1.5-5.0); LYMPH % 26.9 % (24.0-44.0); MEAN CORPUSCULAR HEMOGLOBIN 30.8 pg (27.0-33.0); MEAN CORPUSCULAR HGB CONC 32.2 g/dl (32.0-36.5); MEAN CORPUSCULAR VOLUME 95.4 fl (80.0-96.0); MONO # 0.5 10^3/uL (0.0-0.8); MONO % 9.2 % (2.0-8.0); NEUTROPHILS # 3.3 10^3/uL (1.5-8.5); NEUTROPHILS % 60.5 % (36.0-66.0); PLATELET COUNT, AUTOMATED 189 10^3/uL (150-450); RED BLOOD COUNT 3.51 10^6/uL (4.00-5.40); WHITE BLOOD COUNT 5.4 10^3/uL (4.0-10.0)
[2024-02-09 05:39] LABS: ALBUMIN 2.7 G/DL (3.2-5.2); ALKALINE PHOSPHATASE 183 U/L (35-104); ALT/SGPT 91 U/L (7.0-40); AST/SGOT 76 U/L (<34); BILIRUBIN,TOTAL 0.2 MG/DL (0.3-1.2); BLOOD UREA NITROGEN 5 MG/DL (9-23); CALCIUM LEVEL 9.3 MG/DL (8.3-10.6); CARBON DIOXIDE LEVEL 25 MMOL/L (20-31); CHLORIDE LEVEL 104 MMOL/L (98-107); CREATININE FOR GFR 0.32 MG/DL (0.55-1.30); GLOMERULAR FILTRATION RATE > 60.0 (>45); GLUCOSE, FASTING 235 MG/DL (74-106); MAGNESIUM LEVEL 1.7 MG/DL (1.8-2.4); POTASSIUM SERUM 3.8 MMOL/L (3.5-5.1); SODIUM LEVEL 135 MMOL/L (136-145)
[2024-02-09 08:00] VITALS: BP 121/60; TEMP 97.7; O2SAT 96
[2024-02-09] MEDS: MAGNESIUM OXIDE 400MG TAB (MAG-OX) PO SCH (09:00)
[2024-02-09] MEDS: AMITRIPTYLINE 50 MG TAB PO SCH ×2 (11:23→20:29)
[2024-02-09 12:00] VITALS: BP 122/68; TEMP 97.7; O2SAT 96
[2024-02-09] MEDS: MAG SULF 1GM/100ML (MAG RUN) 1 GM in IV 1 EA IV SCH (13:21)
[2024-02-09] MEDS: ALTEPLASE 2MG/2ML VIAL XX ONE ×2 (15:58→15:59)
[2024-02-09 16:00] VITALS: BP 128/72; TEMP 98.1; O2SAT 96
[2024-02-09 18:43] VITALS: O2SAT 95
[2024-02-09 20:00] VITALS: BP 121/60; TEMP 98.1; O2SAT 95
[2024-02-09] MEDS: LEVEMIR (INSULIN DETEMIR) 1 UNITS/0.01ML SC SCH (20:28)
[2024-02-10] VITALS (8 sets, daily range): BP systolic 111–132; BP diastolic 58–72; TEMP 97.9–98.1; O2SAT 94–98
[2024-02-11] VITALS (7 sets, daily range): BP systolic 122–139; BP diastolic 62–73; TEMP 97.9–98.6; O2SAT 92–96
[2024-02-11 06:27] LABS: HEMATOCRIT 32.3 % (36.0-47.0); HEMOGLOBIN 10.4 g/dl (12.0-15.5); MEAN CORPUSCULAR HEMOGLOBIN 31.5 pg (27.0-33.0); MEAN CORPUSCULAR HGB CONC 32.2 g/dl (32.0-36.5); MEAN CORPUSCULAR VOLUME 97.9 fl (80.0-96.0); PLATELET COUNT, AUTOMATED 195 10^3/uL (150-450); WHITE BLOOD COUNT 6.2 10^3/uL (4.0-10.0)
[2024-02-11] MEDS: LACTULOSE 20GM/30ML SYRUP UDC PO PRN (15:56)
[2024-02-11] MEDS: MINOCYCLINE 50 MG CAP PO SCH (20:57)
[2024-02-12] VITALS: BP 128/65; TEMP 98.2; O2SAT 92
[2024-02-12 00:13] VITALS: BP 128/65; TEMP 98.2; O2SAT 92
[2024-02-12 04:00] VITALS: BP 139/74; TEMP 98.6; O2SAT 94
[2024-02-12] MEDS: HYDROMORPHONE HCL 0.5 MG/ 0.5 ML SYRINGE IV ONE (05:06)
[2024-02-12 08:00] VITALS: BP 139/71; TEMP 98.1; O2SAT 92
[2024-02-12] MEDS ORDERED: MINO50CA3 PO (11:30)
[2024-02-12 12:00] VITALS: BP 127/68; TEMP 98.1; O2SAT 95
[2024-02-13] MEDS ORDERED: FLON1SPR NARES (05:01)
[2024-02-13] MEDS ORDERED: MINO50CA3 PO (05:01)
[2024-02-13] MEDS ORDERED: INSU100V6 INJ (05:04)
[2024-02-13] MEDS ORDERED: POTA1TAB23 PO (05:04)
== END 2024-02-12 14:14 | disposition home health service (06) | DRG 720 ==
LOC: M ED 18:36 → EDBD 18:36 → M ED INP 02-05 01:30 → M MSPAV 02-05 04:06
PROVIDERS: ADMIT Student in an Organized Health Care Education/Training Program; ATTEND Student in an Organized Health Care Education/Training Program
PROC: B246ZZZ Ultrasonography of Right and Left Heart (ICD-10-PCS; principal; 2024-02-08)
DX: A41.9 Sepsis, unspecified organism (principal); I10 Essential (primary) hypertension; E11.65 Type 2 diabetes mellitus with hyperglycemia; E87.1 Hypo-osmolality and hyponatremia; G43.909 Migraine, unspecified, not intractable, without status migrainosus; B37.41 Candidal cystitis and urethritis; J45.909 Unspecified asthma, uncomplicated; E78.5 Hyperlipidemia, unspecified; R26.89 Other abnormalities of gait and mobility; F32.A Depression, unspecified; R55 Syncope and collapse; M19.90 Unspecified osteoarthritis, unspecified site; Z90.79 Acquired absence of other genital organ(s); Z90.49 Acquired absence of other specified parts of digestive tract; Z79.4 Long term (current) use of insulin; Z79.899 Other long term (current) drug therapy; Z91.040 Latex allergy status; Z88.0 Allergy status to penicillin; Z88.2 Allergy status to sulfonamides; Z91.048 Other nonmedicinal substance allergy status; Z88.1 Allergy status to other antibiotic agents; Z88.5 Allergy status to narcotic agent; Z91.018 Allergy to other foods; Z88.3 Allergy status to other anti-infective agents; Z88.6 Allergy status to analgesic agent; Z88.8 Allergy status to other drugs, medicaments and biological substances; Z86.718 Personal history of other venous thrombosis and embolism

== ENCOUNTER 2024-02-12 23:50 | Emergency (ER) | payer OTHER ==
[~2024-02-12] VITALS: Ht 167.6 cm; Wt 77.3 kg
[~2024-02-12 23:50] MED LIST changes: +LOTE5DRO9 OU; +METO10TA2 PO; +MINO50CA3 PO; +NYST1POW3 TOP; -NYST1POW9 TOP; +SENN-186 PO
[2024-02-13 01:06] LABS: BASO % 0.5 % (0.0-1.0); EOS % 0.5 % (0.0-3.0); HEMATOCRIT 30.1 % (36.0-47.0); HEMOGLOBIN 9.8 g/dl (12.0-15.5); LYMPH # 1.7 10^3/uL (1.5-5.0); LYMPH % 22.1 % (24.0-44.0); MEAN CORPUSCULAR HEMOGLOBIN 31.4 pg (27.0-33.0); MEAN CORPUSCULAR HGB CONC 32.6 g/dl (32.0-36.5); MEAN CORPUSCULAR VOLUME 96.5 fl (80.0-96.0); MONO # 0.8 10^3/uL (0.0-0.8); MONO % 10.4 % (2.0-8.0); NEUTROPHILS # 5.1 10^3/uL (1.5-8.5); NEUTROPHILS % 65.4 % (36.0-66.0); PLATELET COUNT, AUTOMATED 222 10^3/uL (150-450); RED BLOOD COUNT 3.12 10^6/uL (4.00-5.40); WHITE BLOOD COUNT 7.9 10^3/uL (4.0-10.0)
[2024-02-13] MEDS: HYDROMORPHONE HCL 0.5 MG/ 0.5 ML SYRINGE IV ONE (02:35)
[2024-02-13 03:04] LABS: ALBUMIN 2.4 G/DL (3.2-5.2); ALKALINE PHOSPHATASE 149 U/L (35-104); ALT/SGPT 39 U/L (7.0-40); AST/SGOT 13 U/L (<34); BILIRUBIN,DIRECT 0.1 MG/DL (<0.4); BILIRUBIN,TOTAL 0.3 MG/DL (0.3-1.2); BLOOD UREA NITROGEN 10 MG/DL (9-23); CALCIUM LEVEL 10.7 MG/DL (8.3-10.6); CARBON DIOXIDE LEVEL 24 MMOL/L (20-31); CHLORIDE LEVEL 101 MMOL/L (98-107); CK-MB VALUE MASS < 1.0 NG/ML (<3.6); CPK CREATINE PHOSPHOKINASE < 15 U/L (34-145); CREATININE FOR GFR 0.38 MG/DL (0.55-1.30); GLOMERULAR FILTRATION RATE > 60.0 (>45); GLUCOSE, FASTING 225 MG/DL (74-106); SODIUM LEVEL 133 MMOL/L (136-145); THYROID STIMULATING HORMONE 0.612 uIU/ML (0.55-4.78); TOTAL PROTEIN 7.2 G/DL (5.7-8.2)
[2024-02-13] MEDS ORDERED: FLON1SPR NARES (05:01)
[2024-02-13] MEDS ORDERED: MINO50CA3 PO (05:01)
[2024-02-13] MEDS ORDERED: INSU100V6 INJ (05:04)
[2024-02-13] MEDS ORDERED: POTA1TAB23 PO (05:04)
[2024-02-13] MEDS ORDERED: HOME MED LIST COMPLETE! XX SCH (05:05)
[2024-02-13 05:36] LABS: CK-MB VALUE MASS < 1.0 NG/ML (<3.6)
[2024-02-13] MEDS: HYDROMORPHONE HCL 0.5 MG/ 0.5 ML SYRINGE IV PRN (05:46)
[2024-02-13 05:54] LABS: CPK CREATINE PHOSPHOKINASE 17 U/L (34-145); MB/CK RELATIVE INDEX 5.88 (< OR =4)
[2024-02-13] MEDS: SODIUM CHLORIDE 0.9% INJ 10 ML SYR IV SCH (08:09)
[2024-02-13 09:39] LABS: MAGNESIUM LEVEL 1.5 MG/DL (1.8-2.4)
[2024-02-13] MEDS: MAG SULF 1GM/100ML (MAG RUN) 1 GM in IV 1 EA IV ONE ×2 (09:56→11:00)
[2024-02-13 13:21] VITALS: BP 137/68; TEMP 98.9; O2SAT 98
[2024-02-13] MEDS: SODIUM CHLORIDE 0.9% INJ 10 ML SYR IV PRN (13:30)
== END 2024-02-13 13:31 | disposition home or self-care (01) ==
LOC: M ED 23:50
DX: E83.42 Hypomagnesemia (principal); M25.512 Pain in left shoulder; Z79.4 Long term (current) use of insulin; Z79.899 Other long term (current) drug therapy; Z91.041 Radiographic dye allergy status; Z88.3 Allergy status to other anti-infective agents; Z88.0 Allergy status to penicillin; Z88.2 Allergy status to sulfonamides; Z91.89 Other specified personal risk factors, not elsewhere classified; Z88.8 Allergy status to other drugs, medicaments and biological substances; Z88.1 Allergy status to other antibiotic agents; Z91.040 Latex allergy status; Z88.5 Allergy status to narcotic agent; Z91.018 Allergy to other foods

== ENCOUNTER 2024-02-15 23:57 | Emergency (ER) | payer OTHER ==
[~2024-02-15] VITALS: Ht 167.6 cm; Wt 77.0 kg
[~2024-02-15 23:57] MED LIST changes: +FLON1SPR NARES; +INSU100V6 INJ; -NYST1POW3 TOP; +NYST1POW9 TOP; +POTA1TAB23 PO
[2024-02-16 02:43] LABS: BASO % 0.2 % (0.0-1.0); EOS % 0.2 % (0.0-3.0); LYMPH # 0.5 10^3/uL (1.5-5.0); LYMPH % 4.3 % (24.0-44.0); MEAN CORPUSCULAR HEMOGLOBIN 30.8 pg (27.0-33.0); MEAN CORPUSCULAR HGB CONC 32.4 g/dl (32.0-36.5); MEAN CORPUSCULAR VOLUME 94.9 fl (80.0-96.0); MONO # 0.8 10^3/uL (0.0-0.8); MONO % 6.6 % (2.0-8.0); NEUTROPHILS # 10.7 10^3/uL (1.5-8.5); NEUTROPHILS % 88.1 % (36.0-66.0); PLATELET COUNT, AUTOMATED 298 10^3/uL (150-450); WHITE BLOOD COUNT 12.2 10^3/uL (4.0-10.0)
[2024-02-16] MEDS: HYDROmorphone HCL 2MG/ML 1ML VIAL IV ONE (02:53)
[2024-02-16 02:56] LABS: INR 0.98; PARTIAL THROMBOPLASTIN TIME 67.7 SECONDS (24.8-34.2); PROTHROMBIN TIME 13.3 SECONDS (12.5-14.5)
[2024-02-16 03:18] LABS: LIPASE 26 U/L (12-53)
[2024-02-16 03:21] LABS: ALKALINE PHOSPHATASE 157 U/L (35-104); ALT/SGPT 31 U/L (7.0-40); AMYLASE 24 U/L (30-118); AST/SGOT 22 U/L (<34); BILIRUBIN,DIRECT 0.1 MG/DL (<0.4); BILIRUBIN,TOTAL 0.3 MG/DL (0.3-1.2); BLOOD UREA NITROGEN 14 MG/DL (9-23); CALCIUM LEVEL 11.7 MG/DL (8.3-10.6); CARBON DIOXIDE LEVEL 27 MMOL/L (20-31); CHLORIDE LEVEL 94 MMOL/L (98-107); CK-MB VALUE MASS < 1.0 NG/ML (<3.6); CPK CREATINE PHOSPHOKINASE 17 U/L (34-145); CREATININE FOR GFR 0.86 MG/DL (0.55-1.30); GLOMERULAR FILTRATION RATE > 60.0 (>45); GLUCOSE, FASTING 262 MG/DL (74-106); MAGNESIUM LEVEL 1.4 MG/DL (1.8-2.4); MB/CK RELATIVE INDEX 5.88 (< OR =4); POTASSIUM SERUM 4.2 MMOL/L (3.5-5.1); SODIUM LEVEL 131 MMOL/L (136-145); TOTAL PROTEIN 8.5 G/DL (5.7-8.2)
[2024-02-16] MEDS: ONDANSETRON 4MG 2ML VIAL IV ONE (05:34)
[2024-02-16] MEDS: HYDROMORPHONE HCL 0.5 MG/ 0.5 ML SYRINGE IV ONE ×2 (05:35→11:47)
[2024-02-16] MEDS: MAG SULF 1GM/100ML (MAG RUN) 1 GM in IV 1 EA IV ONE (07:25)
[2024-02-16] MEDS ORDERED: HOME MED LIST COMPLETE! XX SCH (08:00)
[2024-02-16] MEDS: SODIUM CHLORIDE 0.9% INJ 10 ML SYR IV PRN (14:02)
[2024-02-16 14:29] VITALS: BP 114/61; TEMP 96.9; O2SAT 91
[2024-02-16] MEDS: HYDROmorphone 2 MG TAB PO ONE (17:42)
[2024-02-16] MEDS: ONDANSETRON 4MG 2ML VIAL IM ONE (20:21)
== END 2024-02-16 20:40 | disposition home or self-care (01) ==
LOC: EDBD 23:57 → M ED 23:57 → CANBEDREQ 02-16 13:24 → M ED 02-16 20:40
DX: G89.4 Chronic pain syndrome (principal); E10.9 Type 1 diabetes mellitus without complications; I10 Essential (primary) hypertension; Z87.442 Personal history of urinary calculi; G43.909 Migraine, unspecified, not intractable, without status migrainosus; Z86.718 Personal history of other venous thrombosis and embolism; J45.909 Unspecified asthma, uncomplicated; F32.A Depression, unspecified; Z86.14 Personal history of Methicillin resistant Staphylococcus aureus infection; Z86.011 Personal history of benign neoplasm of the brain; Z79.4 Long term (current) use of insulin; Z79.899 Other long term (current) drug therapy; Z91.018 Allergy to other foods; Z91.041 Radiographic dye allergy status; Z91.040 Latex allergy status; Z88.3 Allergy status to other anti-infective agents; Z88.0 Allergy status to penicillin; Z88.2 Allergy status to sulfonamides; Z91.89 Other specified personal risk factors, not elsewhere classified; Z88.8 Allergy status to other drugs, medicaments and biological substances; Z88.1 Allergy status to other antibiotic agents; Z88.5 Allergy status to narcotic agent
CPT/HCPCS: 51701; 74176; 80048; 80076; 81001; 82150; 82550; 82553; 83605; 83690; 83735; 84484; 85025; 85610; 85730; 87040; 87086; 93005; 93041; 94760; 96365; 96372; 96375; 96376; 99285; J1171; J1642; J2405; J3475

== ENCOUNTER 2024-02-18 06:50 | Outpatient (CLI) | payer OTHER ==
[~2024-02-18] VITALS: Ht 167.6 cm; Wt 72.7 kg
[2024-02-18 06:50] VITALS: BP 123/66; O2SAT 95
[~2024-02-18 06:50] MED LIST changes: +NYST1POW3 TOP; -NYST1POW9 TOP
[2024-02-18] MEDS: MAG SULF 1GM/100ML (MAG RUN) IV ONE (07:00)
[2024-02-18] MEDS ORDERED: SODIUM CHLORIDE 0.9% INJ 10 ML SYR IV PRN (07:00)
[2024-02-18] MEDS: SODIUM CHLORIDE 0.9% INJ 10 ML SYR IV SCH (08:04)
[2024-02-18 08:10] VITALS: BP 128/68; O2SAT 97
== END 2024-02-18 08:10 ==
LOC: M INFU 06:50
PROVIDERS: ATTEND Family Medicine
DX: E83.42 Hypomagnesemia (principal); Z91.041 Radiographic dye allergy status; Z91.040 Latex allergy status; Z91.89 Other specified personal risk factors, not elsewhere classified; Z88.3 Allergy status to other anti-infective agents; Z88.0 Allergy status to penicillin; Z88.2 Allergy status to sulfonamides; Z88.1 Allergy status to other antibiotic agents; Z88.5 Allergy status to narcotic agent; Z88.8 Allergy status to other drugs, medicaments and biological substances
CPT/HCPCS: 36591; 83735; 96365; J1642; J3475

== ENCOUNTER 2024-02-20 09:25 | Emergency (ER) | payer OTHER ==
[2024-02-20 09:35] VITALS: TEMP 99.6
[2024-02-20] MEDS ORDERED: PILL CUTTER 1 EACH XX ONE (10:21)
[2024-02-20] MEDS: ONDANSETRON 4MG ORAL DISINTEGRATING TAB PO ONE (10:28)
[2024-02-20] MEDS: HYDROmorphone 2 MG TAB PO ONE ×2 (10:28→14:14)
[2024-02-20 15:49] VITALS: BP 122/68; O2SAT 98
== END 2024-02-20 15:58 | disposition home or self-care (01) ==
LOC: M ED 09:25
DX: K56.7 Ileus, unspecified (principal); E11.9 Type 2 diabetes mellitus without complications; G89.29 Other chronic pain; E78.5 Hyperlipidemia, unspecified; J45.909 Unspecified asthma, uncomplicated; Z86.73 Personal history of transient ischemic attack (TIA), and cerebral infarction without residual deficits; Z93.3 Colostomy status; Z79.4 Long term (current) use of insulin; Z79.899 Other long term (current) drug therapy; Z88.0 Allergy status to penicillin; Z88.1 Allergy status to other antibiotic agents; Z88.2 Allergy status to sulfonamides; Z88.3 Allergy status to other anti-infective agents; Z88.5 Allergy status to narcotic agent; Z88.8 Allergy status to other drugs, medicaments and biological substances; Z91.041 Radiographic dye allergy status; Z91.040 Latex allergy status; Z91.89 Other specified personal risk factors, not elsewhere classified; Z91.018 Allergy to other foods

== ENCOUNTER 2024-02-25 07:00 | Outpatient (CLI) | payer OTHER ==
[~2024-02-25] VITALS: Ht 167.6 cm; Wt 76.0 kg
[~2024-02-25 07:00] MED LIST changes: +SODIUM CHLORIDE 0.9% INJ 10 ML SYR IV PRN
[2024-02-25] MEDS: MAG SULF 1GM/100ML (MAG RUN) IV ONE (07:12)
[2024-02-25] MEDS: SODIUM CHLORIDE 0.9% INJ 10 ML SYR IV SCH (07:13)
[2024-02-25 07:26] VITALS: BP 110/71; O2SAT 99
[2024-02-25] MEDS: MAG SULF 1GM/100ML (MAG RUN) IV SCH (08:23)
[2024-02-25] MEDS ORDERED: SODIUM CHLORIDE 0.9% INJ 10 ML SYR IV SCH (09:00)
[2024-02-25 11:55] VITALS: BP 129/65; O2SAT 98
== END 2024-02-25 11:55 ==
LOC: M INFU 07:00
PROVIDERS: ATTEND Family Medicine
DX: E83.42 Hypomagnesemia (principal); Z88.3 Allergy status to other anti-infective agents; Z88.0 Allergy status to penicillin; Z88.2 Allergy status to sulfonamides; Z88.1 Allergy status to other antibiotic agents; Z88.8 Allergy status to other drugs, medicaments and biological substances; Z88.5 Allergy status to narcotic agent; Z91.89 Other specified personal risk factors, not elsewhere classified; Z91.040 Latex allergy status; Z91.041 Radiographic dye allergy status
CPT/HCPCS: 36591; 83735; 96523; J1642; J3475

== ENCOUNTER → 2024-02-26 | Outpatient (REF) | payer OTHER ==
[~2024-02-26] MED LIST changes: -SODIUM CHLORIDE 0.9% INJ 10 ML SYR IV PRN
== END ==
LOC: M SFHCPLAZ 14:35
PROVIDERS: ATTEND Family Medicine
DX: Z53.20 Procedure and treatment not carried out because of patient's decision for unspecified reasons (principal)

== ENCOUNTER → 2024-02-27 | Outpatient (CLI) | payer OTHER | LOC: M PAIN 12:45 | PROVIDERS: ATTEND Anesthesiology | DX: M79.18 Myalgia, other site (principal); G89.4 Chronic pain syndrome; R10.31 Right lower quadrant pain; R10.32 Left lower quadrant pain; E11.40 Type 2 diabetes mellitus with diabetic neuropathy, unspecified; J45.909 Unspecified asthma, uncomplicated; E78.5 Hyperlipidemia, unspecified; K21.9 Gastro-esophageal reflux disease without esophagitis; J32.0 Chronic maxillary sinusitis; Z86.711 Personal history of pulmonary embolism; Z86.718 Personal history of other venous thrombosis and embolism; Z79.82 Long term (current) use of aspirin; Z79.4 Long term (current) use of insulin; Z88.0 Allergy status to penicillin; Z88.1 Allergy status to other antibiotic agents; Z88.5 Allergy status to narcotic agent; Z88.2 Allergy status to sulfonamides; Z88.8 Allergy status to other drugs, medicaments and biological substances; Z91.041 Radiographic dye allergy status; Z91.048 Other nonmedicinal substance allergy status ==

== ENCOUNTER 2024-03-03 06:45 | Outpatient (CLI) | payer OTHER ==
[~2024-03-03] VITALS: Ht 167.6 cm; Wt 72.8 kg
[~2024-03-03 06:45] MED LIST changes: +MAG SULF 1GM/100ML (MAG RUN) IV ONE; +MAG SULF 1GM/100ML (MAG RUN) IV SCH
[2024-03-03] MEDS ORDERED: SODIUM CHLORIDE 0.9% INJ 10 ML SYR IV PRN (07:00)
[2024-03-03] MEDS ORDERED: SODIUM CHLORIDE 0.9% INJ 10 ML SYR IV SCH (07:00)
[2024-03-03 07:05] VITALS: BP 105/66; O2SAT 96
[2024-03-03] MEDS: MAG SULF 1GM/100ML (MAG RUN) IV ONE (07:13)
[2024-03-03] MEDS: SODIUM CHLORIDE 0.9% INJ 10 ML SYR IV SCH (07:14)
[2024-03-03] MEDS: MAG SULF 1GM/100ML (MAG RUN) IV SCH (08:06)
[2024-03-03 08:22] LABS: ALBUMIN 3.1 G/DL (3.2-5.2); ALKALINE PHOSPHATASE 90 U/L (35-104); ALT/SGPT 41 U/L (7.0-40); AST/SGOT 30 U/L (<34); BILIRUBIN,TOTAL 0.2 MG/DL (0.3-1.2); BLOOD UREA NITROGEN 25 MG/DL (9-23); CARBON DIOXIDE LEVEL 24 MMOL/L (20-31); CHLORIDE LEVEL 108 MMOL/L (98-107); CREATININE FOR GFR 0.52 MG/DL (0.55-1.30); GLOMERULAR FILTRATION RATE > 60.0 (>45); GLUCOSE, FASTING 199 MG/DL (74-106); SODIUM LEVEL 141 MMOL/L (136-145)
[2024-03-03 09:30] VITALS: BP 136/72; O2SAT 96
== END 2024-03-03 09:35 ==
LOC: M INFU 06:45 → EEVIPCON 07:00 → M INFU 09:35
PROVIDERS: ATTEND Family Medicine
DX: E83.42 Hypomagnesemia (principal); Z91.041 Radiographic dye allergy status; Z91.040 Latex allergy status; Z91.89 Other specified personal risk factors, not elsewhere classified; Z88.0 Allergy status to penicillin; Z88.2 Allergy status to sulfonamides; Z88.1 Allergy status to other antibiotic agents; Z88.5 Allergy status to narcotic agent; Z88.3 Allergy status to other anti-infective agents; Z88.8 Allergy status to other drugs, medicaments and biological substances
CPT/HCPCS: 36591; 80053; 83735; 96365; 96366; J1642; J3475

== ENCOUNTER → 2024-03-10 | Outpatient (CLI) | payer OTHER ==
[~2024-03-10] MED LIST changes: -MAG SULF 1GM/100ML (MAG RUN) IV ONE; -MAG SULF 1GM/100ML (MAG RUN) IV SCH; +SODIUM CHLORIDE 0.9% INJ 10 ML SYR IV PRN
[2024-03-10 07:00] VITALS: BP 143/74; O2SAT 96
[2024-03-10] MEDS: MAG SULF 1GM/100ML (MAG RUN) IV ONE ×2 (07:23→08:27)
[2024-03-10] MEDS: SODIUM CHLORIDE 0.9% INJ 10 ML SYR IV SCH (07:24)
[2024-03-10 09:30] VITALS: BP 141/71; O2SAT 99
== END ==
LOC: M INFU 06:55
PROVIDERS: ATTEND Family Medicine
DX: E83.42 Hypomagnesemia (principal); Z88.3 Allergy status to other anti-infective agents; Z88.0 Allergy status to penicillin; Z88.2 Allergy status to sulfonamides; Z88.8 Allergy status to other drugs, medicaments and biological substances; Z88.1 Allergy status to other antibiotic agents; Z88.5 Allergy status to narcotic agent; Z91.89 Other specified personal risk factors, not elsewhere classified; Z91.040 Latex allergy status; Z91.041 Radiographic dye allergy status
CPT/HCPCS: 83735; 96365; 96366; J1642; J3475

== ENCOUNTER 2024-03-12 18:38 | Emergency (ER) | payer OTHER ==
[~2024-03-12] VITALS: Ht 167.6 cm; Wt 72.7 kg
[~2024-03-12 18:38] MED LIST changes: -SODIUM CHLORIDE 0.9% INJ 10 ML SYR IV PRN
[2024-03-12 18:43] VITALS: TEMP 98.8
[2024-03-12 19:40] LABS: BASO % 0.4 % (0.0-1.0); EOS # 0.1 10^3/uL (0.0-0.5); EOS % 1.5 % (0.0-3.0); HEMATOCRIT 35.8 % (36.0-47.0); HEMOGLOBIN 11.3 g/dl (12.0-15.5); LYMPH # 1.5 10^3/uL (1.5-5.0); LYMPH % 22.1 % (24.0-44.0); MEAN CORPUSCULAR HEMOGLOBIN 30.6 pg (27.0-33.0); MEAN CORPUSCULAR HGB CONC 31.6 g/dl (32.0-36.5); MONO # 0.7 10^3/uL (0.0-0.8); MONO % 9.4 % (2.0-8.0); NEUTROPHILS # 4.6 10^3/uL (1.5-8.5); NEUTROPHILS % 66.2 % (36.0-66.0); PLATELET COUNT, AUTOMATED 196 10^3/uL (150-450); RED BLOOD COUNT 3.69 10^6/uL (4.00-5.40); WHITE BLOOD COUNT 6.9 10^3/uL (4.0-10.0)
[2024-03-12] MEDS: ONDANSETRON 4MG 2ML VIAL IV ONE (20:08)
[2024-03-12] MEDS: HYDROMORPHONE HCL 0.5 MG/ 0.5 ML SYRINGE IV ONE (20:08)
[2024-03-12 20:20] LABS: LIPASE 38 U/L (12-53)
[2024-03-12 20:29] LABS: ALBUMIN 2.9 G/DL (3.2-5.2); ALKALINE PHOSPHATASE 100 U/L (35-104); ALT/SGPT 47 U/L (7.0-40); AST/SGOT 31 U/L (<34); BILIRUBIN,DIRECT < 0.1 MG/DL (<0.4); BILIRUBIN,TOTAL 0.2 MG/DL (0.3-1.2); BLOOD UREA NITROGEN 19 MG/DL (9-23); CALCIUM LEVEL 9.7 MG/DL (8.3-10.6); CARBON DIOXIDE LEVEL 26 MMOL/L (20-31); CHLORIDE LEVEL 102 MMOL/L (98-107); CREATININE FOR GFR 0.55 MG/DL (0.55-1.30); GLOMERULAR FILTRATION RATE > 60.0 (>45); GLUCOSE, FASTING 416 MG/DL (74-106); POTASSIUM SERUM 3.7 MMOL/L (3.5-5.1); SODIUM LEVEL 136 MMOL/L (136-145); TOTAL PROTEIN 7.3 G/DL (5.7-8.2)
[2024-03-12] MEDS ORDERED: HumuLIN R (REGULAR) INSULIN (NovoLIN R) **100U/ML** PER UNIT IV ONE (20:30)
[2024-03-12] MEDS: NS 1,000 ML IV ONE (20:51)
[2024-03-12] MEDS: HumuLIN R (REGULAR) INSULIN (NovoLIN R) **100U/ML** PER UNIT IV ONE (21:08)
[2024-03-12 21:12] LABS: ABG BASE EXCESS -2.6 (-2.0-2.0); ABG HCO3 21.6 MMOL/L (22.0-26.0); ABG O2 SATURATION 98.3 % (95.0-99.0); ABG PARTIAL PRESSURE CO2 35.2 mmHg (35.0-45.0); ABG PARTIAL PRESSURE O2 116.3 mmHg (75.0-100.0); ABG STANDARD HCO3 22.4 MMOL/L. (22.0-26.0); ABG TOTAL CO2 22.6 MMOL/L (23.0-31.0); ABG pH (ARTERIAL) 7.405 UNITS (7.350-7.450)
[2024-03-12 21:53] LABS: ACETONE/KETONE 0.14 MMOL/L (0.02-0.27)
[2024-03-12] MEDS: ACETAMINOPHEN *IV* 1,000 MG in IV 1 EA IV ONE (22:32)
[2024-03-12 23:00] VITALS: BP 129/63; O2SAT 94
[2024-03-12] MEDS ORDERED: SODIUM CHLORIDE 0.9% INJ 10 ML SYR IV PRN (23:00)
[2024-03-13] MEDS ORDERED: SODIUM CHLORIDE 0.9% INJ 10 ML SYR IV SCH (09:00)
== END 2024-03-12 23:19 | disposition home or self-care (01) ==
LOC: M ED 18:38
DX: G89.29 Other chronic pain (principal); R10.9 Unspecified abdominal pain; E11.9 Type 2 diabetes mellitus without complications; E78.5 Hyperlipidemia, unspecified; J45.909 Unspecified asthma, uncomplicated; Z86.73 Personal history of transient ischemic attack (TIA), and cerebral infarction without residual deficits; Z93.9 Artificial opening status, unspecified; K57.10 Diverticulosis of small intestine without perforation or abscess without bleeding; N20.0 Calculus of kidney; Z79.4 Long term (current) use of insulin; Z79.899 Other long term (current) drug therapy; Z91.041 Radiographic dye allergy status; Z91.040 Latex allergy status; Z88.3 Allergy status to other anti-infective agents; Z88.0 Allergy status to penicillin; Z88.2 Allergy status to sulfonamides; Z91.89 Other specified personal risk factors, not elsewhere classified; Z88.1 Allergy status to other antibiotic agents; Z88.5 Allergy status to narcotic agent; Z88.6 Allergy status to analgesic agent; Z91.018 Allergy to other foods
CPT/HCPCS: 36600; 74176; 80048; 80076; 82010; 82803; 83690; 85025; 96361; 96365; 96375; 99284; J0131; J1171; J1642; J2405

== ENCOUNTER → 2024-03-15 | Outpatient (REF) | payer OTHER | LOC: M SFHCPLAZ 16:58 | PROVIDERS: ATTEND Student in an Organized Health Care Education/Training Program | DX: R09.81 Nasal congestion (principal) ==

== ENCOUNTER 2024-03-17 06:55 | Outpatient (CLI) | payer OTHER ==
[~2024-03-17] VITALS: Ht 162.6 cm; Wt 70.5 kg
[2024-03-17 06:55] VITALS: BP 133/81; O2SAT 96
[2024-03-17] MEDS ORDERED: SODIUM CHLORIDE 0.9% INJ 10 ML SYR IV PRN (07:05)
[2024-03-17] MEDS: MAG SULF 1GM/100ML (MAG RUN) IV ONE ×2 (07:10→08:23)
[2024-03-17] MEDS: SODIUM CHLORIDE 0.9% INJ 10 ML SYR IV SCH (07:11)
[2024-03-17 07:45] LABS: HEMOGLOBIN A1c 10.6 % (4.0-6.0)
[2024-03-17 09:40] VITALS: BP 118/71; O2SAT 96
== END 2024-03-17 09:40 ==
LOC: M INFU 06:55
PROVIDERS: ATTEND Family Medicine
DX: E83.42 Hypomagnesemia (principal); Z91.041 Radiographic dye allergy status; Z91.040 Latex allergy status; Z91.89 Other specified personal risk factors, not elsewhere classified; Z88.0 Allergy status to penicillin; Z88.1 Allergy status to other antibiotic agents; Z88.2 Allergy status to sulfonamides; Z88.3 Allergy status to other anti-infective agents; Z88.5 Allergy status to narcotic agent; Z88.8 Allergy status to other drugs, medicaments and biological substances
CPT/HCPCS: 83036; 83735; 96365; 96366; J1642; J3475

== ENCOUNTER 2024-03-24 06:24 | Outpatient (CLI) | payer OTHER ==
[~2024-03-24] VITALS: Ht 167.6 cm; Wt 70.0 kg
[2024-03-24 07:00] VITALS: BP 125/66; O2SAT 93
[2024-03-24] MEDS: MAG SULF 1GM/100ML (MAG RUN) IV ONE (07:15)
[2024-03-24] MEDS: MAG SULF 1GM/100ML (MAG RUN) IV SCH (08:35)
[2024-03-24] MEDS: SODIUM CHLORIDE 0.9% INJ 10 ML SYR IV PRN (09:29)
[2024-03-24 11:53] VITALS: BP 121/66; O2SAT 96
== END 2024-03-24 11:55 ==
LOC: M INFU 06:24
PROVIDERS: ATTEND Family Medicine
DX: E83.42 Hypomagnesemia (principal); Z88.0 Allergy status to penicillin; Z88.1 Allergy status to other antibiotic agents; Z88.3 Allergy status to other anti-infective agents; Z88.5 Allergy status to narcotic agent; Z88.6 Allergy status to analgesic agent; Z88.8 Allergy status to other drugs, medicaments and biological substances; Z91.89 Other specified personal risk factors, not elsewhere classified; Z91.040 Latex allergy status; Z91.041 Radiographic dye allergy status
CPT/HCPCS: 36591; 83735; 96365; 96366; J1642; J3475

== ENCOUNTER → 2024-03-24 | Outpatient (CLI) | payer OTHER | LOC: M PAIN 14:45 | PROVIDERS: ATTEND Anesthesiology | DX: R10.9 Unspecified abdominal pain (principal); G89.4 Chronic pain syndrome; E11.40 Type 2 diabetes mellitus with diabetic neuropathy, unspecified; J45.909 Unspecified asthma, uncomplicated; E78.5 Hyperlipidemia, unspecified; K21.9 Gastro-esophageal reflux disease without esophagitis; J32.0 Chronic maxillary sinusitis; Z79.82 Long term (current) use of aspirin; Z79.891 Long term (current) use of opiate analgesic; Z79.4 Long term (current) use of insulin; Z88.0 Allergy status to penicillin; Z88.5 Allergy status to narcotic agent; Z88.2 Allergy status to sulfonamides; Z88.1 Allergy status to other antibiotic agents; Z91.02 Food additives allergy status; Z91.041 Radiographic dye allergy status ==

== ENCOUNTER → 2024-03-25 | Outpatient (REF) | payer OTHER ==
[2024-04-01 11:48] LABS: HPV VAGINAL Not Detected (NOT DETECT)
== END ==
LOC: M SFHCWAGY 17:14
PROVIDERS: ATTEND Obstetrics & Gynecology
DX: Z12.72 Encounter for screening for malignant neoplasm of vagina (principal); R87.615 Unsatisfactory cytologic smear of cervix

== ENCOUNTER 2024-03-31 07:00 | Outpatient (CLI) | payer OTHER ==
[~2024-03-31] VITALS: Ht 152.4 cm; Wt 70.5 kg
[2024-03-31 07:00] VITALS: BP 132/68; O2SAT 95
[2024-03-31] MEDS: MAG SULF 1GM/100ML (MAG RUN) IV ONE (07:08)
[2024-03-31] MEDS ORDERED: SODIUM CHLORIDE 0.9% INJ 10 ML SYR IV PRN (07:10)
[2024-03-31] MEDS: MAG SULF 1GM/100ML (MAG RUN) IV SCH (08:04)
[2024-03-31] MEDS: SODIUM CHLORIDE 0.9% INJ 10 ML SYR IV SCH (08:05)
[2024-03-31 11:00] VITALS: BP 131/67; O2SAT 94
== END 2024-03-31 11:20 ==
LOC: M INFU 07:00
PROVIDERS: ATTEND Family Medicine
DX: E83.42 Hypomagnesemia (principal); Z91.040 Latex allergy status; Z91.041 Radiographic dye allergy status; Z91.89 Other specified personal risk factors, not elsewhere classified; Z88.0 Allergy status to penicillin; Z88.1 Allergy status to other antibiotic agents; Z88.2 Allergy status to sulfonamides; Z88.3 Allergy status to other anti-infective agents; Z88.5 Allergy status to narcotic agent; Z88.8 Allergy status to other drugs, medicaments and biological substances
CPT/HCPCS: 36591; 83735; 96365; J1642; J3475

== ENCOUNTER 2024-04-04 14:13 | Emergency (ER) | payer OTHER ==
[~2024-04-04] VITALS: Ht 170.2 cm; Wt 70.5 kg
[2024-04-04] MEDS: NS (Normal Saline) 0.9% 1,000 ML IV ONE (16:00)
[2024-04-04 16:33] LABS: VENOUS BASE EXCESS -3.9 (-2.0-2.0); VENOUS HCO3 22.1 MMOL/L (23.0-27.0); VENOUS O2 SATURATION 83.3 % (60.0-80.0); VENOUS PARTIAL PRESSURE CO2 43.9 mmHg (38.0-50.0); VENOUS PARTIAL PRESSURE O2 50.6 mmHg (30.0-50.0); VENOUS STANDARD HCO3 20.9 MMOL/L; VENOUS TOTAL CO2 23.5 MMOL/L (24.0-28.0)
[2024-04-04 16:37] LABS: BASO % 0.3 % (0.0-1.0); EOS # 0.1 10^3/uL (0.0-0.5); EOS % 0.7 % (0.0-3.0); HEMATOCRIT 37.6 % (36.0-47.0); HEMOGLOBIN 11.7 g/dl (12.0-15.5); LYMPH % 13.7 % (24.0-44.0); MEAN CORPUSCULAR HEMOGLOBIN 30.6 pg (27.0-33.0); MEAN CORPUSCULAR HGB CONC 31.1 g/dl (32.0-36.5); MEAN CORPUSCULAR VOLUME 98.4 fl (80.0-96.0); MONO # 0.6 10^3/uL (0.0-0.8); MONO % 7.3 % (2.0-8.0); NEUTROPHILS # 5.9 10^3/uL (1.5-8.5); NEUTROPHILS % 77.7 % (36.0-66.0); PLATELET COUNT, AUTOMATED 209 10^3/uL (150-450); RED BLOOD COUNT 3.82 10^6/uL (4.00-5.40); WHITE BLOOD COUNT 7.5 10^3/uL (4.0-10.0)
[2024-04-04 16:44] LABS: KETONE, URINE AUTO RFX TRACE mg/dL (NEGATIVE); LEUKOCYTE ESTERASE UR AUTO RFX NEGATIVE (NEGATIVE); NITRITE, URINE AUTO RFX NEGATIVE (NEGATIVE); RBC, URINE AUTO RFX 0 /HPF (0-3); SQUAM EPITHELIAL CELL UR AURFX 4 /HPF (0-6); WBC, URINE AUTO RFX 3 /HPF (0-3)
[2024-04-04 17:04] LABS: HEMOGLOBIN A1c 10.5 % (4.0-6.0)
[2024-04-04 17:05] LABS: LIPASE 36 U/L (12-53)
[2024-04-04 17:07] LABS: OSMOLALITY SERUM 325 MOSM/KG (280-301)
[2024-04-04 17:10] LABS: ALBUMIN 3.2 G/DL (3.2-5.2); ALKALINE PHOSPHATASE 109 U/L (35-104); ALT/SGPT 38 U/L (7.0-40); AST/SGOT 34 U/L (<34); BILIRUBIN,DIRECT < 0.1 MG/DL (<0.4); BILIRUBIN,TOTAL 0.2 MG/DL (0.3-1.2); BLOOD UREA NITROGEN 20 MG/DL (9-23); CARBON DIOXIDE LEVEL 23 MMOL/L (20-31); CHLORIDE LEVEL 107 MMOL/L (98-107); CK-MB VALUE MASS < 1.0 NG/ML (<3.6); CPK CREATINE PHOSPHOKINASE 78 U/L (34-145); CREATININE FOR GFR 0.52 MG/DL (0.55-1.30); GLOMERULAR FILTRATION RATE > 60.0 (>45); GLUCOSE, FASTING 435 MG/DL (74-106); MAGNESIUM LEVEL 1.6 MG/DL (1.8-2.4); MB/CK RELATIVE INDEX 1.28 (< OR =4); PHOSPHORUS LEVEL 3.3 MG/DL (2.4-5.1); SODIUM LEVEL 140 MMOL/L (136-145); TOTAL PROTEIN 7.8 G/DL (5.7-8.2)
[2024-04-04 17:15] LABS: INR 0.91; PARTIAL THROMBOPLASTIN TIME 27.2 SECONDS (24.8-34.2); PROTHROMBIN TIME 12.6 SECONDS (12.5-14.5)
[2024-04-04] MEDS: HumuLIN R (REGULAR) INSULIN (NovoLIN R) **100U/ML** PER UNIT IV ONE (17:26)
[2024-04-04 18:13] LABS: CK-MB VALUE MASS < 1.0 NG/ML (<3.6)
[2024-04-04 18:23] LABS: CPK CREATINE PHOSPHOKINASE 71 U/L (34-145)
[2024-04-04 18:44] LABS: ERYTHROCYTE SEDIMENTATION RATE 110 mm/hr (0-30)
[2024-04-04 19:42] LABS: CK-MB VALUE MASS < 1.0 NG/ML (<3.6)
[2024-04-04 19:44] LABS: CPK CREATINE PHOSPHOKINASE 66 U/L (34-145); MB/CK RELATIVE INDEX 1.51 (< OR =4)
[2024-04-04 21:00] VITALS: TEMP 98
[2024-04-04] MEDS: ACETAMINOPHEN *IV* 1,000 MG in IV 1 EA IV ONE (22:49)
[2024-04-04 23:00] VITALS: BP 152/73; O2SAT 98
== END 2024-04-05 00:20 | disposition home or self-care (01) ==
LOC: M ED 14:13 → EDBD 14:13 → M ED 04-05 00:20
DX: H54.7 Unspecified visual loss (principal); E11.65 Type 2 diabetes mellitus with hyperglycemia; E78.5 Hyperlipidemia, unspecified; G43.909 Migraine, unspecified, not intractable, without status migrainosus; I10 Essential (primary) hypertension; Z90.89 Acquired absence of other organs; Z91.041 Radiographic dye allergy status; Z88.0 Allergy status to penicillin; Z88.1 Allergy status to other antibiotic agents; Z88.2 Allergy status to sulfonamides; Z88.6 Allergy status to analgesic agent; Z88.8 Allergy status to other drugs, medicaments and biological substances; Z91.018 Allergy to other foods; Z79.52 Long term (current) use of systemic steroids; Z79.02 Long term (current) use of antithrombotics/antiplatelets; Z79.899 Other long term (current) drug therapy
CPT/HCPCS: 36415; 70450; 71045; 80047; 80048; 80076; 81001; 82010; 82550; 82553; 82803; 83036; 83690; 83735; 83930; 84100; 84484; 85025; 85610; 85652; 85730; 87040; 87486; 87581; 87633; 87798; 93005; 93041; 93880; 94760; 96374; 96375; 99285; J0131; J1815

== ENCOUNTER 2024-04-08 06:35 | Outpatient (CLI) | payer OTHER ==
[2024-04-08 06:40] VITALS: BP 134/68; O2SAT 99
[2024-04-08] MEDS: MAG SULF 1GM/100ML (MAG RUN) IV ONE ×2 (07:14→08:23)
[2024-04-08] MEDS ORDERED: SODIUM CHLORIDE 0.9% INJ 10 ML SYR IV PRN (07:45)
[2024-04-08] MEDS: SODIUM CHLORIDE 0.9% INJ 10 ML SYR IV SCH (08:32)
[2024-04-08 09:41] VITALS: BP 130/66; O2SAT 95
== END 2024-04-08 10:05 | disposition home or self-care (01) ==
LOC: M INFU 06:35
PROVIDERS: ATTEND Family Medicine
DX: E83.42 Hypomagnesemia (principal); Z91.041 Radiographic dye allergy status; Z91.040 Latex allergy status; Z91.89 Other specified personal risk factors, not elsewhere classified; Z88.3 Allergy status to other anti-infective agents; Z88.0 Allergy status to penicillin; Z88.2 Allergy status to sulfonamides; Z88.1 Allergy status to other antibiotic agents; Z88.5 Allergy status to narcotic agent; Z88.8 Allergy status to other drugs, medicaments and biological substances
CPT/HCPCS: 36591; 83735; 96365; 96366; J1642; J3475

== ENCOUNTER → 2024-04-12 | Outpatient (CLI) | payer OTHER ==
[~2024-04-12] MED LIST changes: +LIDOCAINE 1% MDV 20ML VIAL As Ordered ONE; +TRIAMCINOLONE ACETONIDE SUSP 40MG/ML 1ML VIAL As Ordered ONE
== END ==
LOC: M RAD 10:25
PROVIDERS: ATTEND Physician Assistant
DX: M25.512 Pain in left shoulder (principal)
CPT/HCPCS: 20610; 77002; J0665; J3301

== ENCOUNTER 2024-04-16 06:15 | Outpatient (CLI) | payer OTHER ==
[~2024-04-16] VITALS: Ht 170.2 cm; Wt 70.0 kg
[~2024-04-16 06:15] MED LIST changes: -LIDOCAINE 1% MDV 20ML VIAL As Ordered ONE; -TRIAMCINOLONE ACETONIDE SUSP 40MG/ML 1ML VIAL As Ordered ONE
[2024-04-16 06:43] VITALS: BP 125/65; O2SAT 96
[2024-04-16] MEDS: MAG SULF 1GM/100ML (MAG RUN) IV ONE ×2 (06:45→07:36)
[2024-04-16] MEDS: SODIUM CHLORIDE 0.9% INJ 10 ML SYR IV SCH (06:45)
[2024-04-16] MEDS ORDERED: SODIUM CHLORIDE 0.9% INJ 10 ML SYR IV PRN (07:00)
[2024-04-16 08:51] VITALS: BP 133/70; O2SAT 96
== END 2024-04-16 09:00 | disposition home or self-care (01) ==
LOC: M INFU 06:15
PROVIDERS: ATTEND Family Medicine
DX: E83.42 Hypomagnesemia (principal); Z91.041 Radiographic dye allergy status; Z91.040 Latex allergy status; Z91.89 Other specified personal risk factors, not elsewhere classified; Z88.0 Allergy status to penicillin; Z88.1 Allergy status to other antibiotic agents; Z88.3 Allergy status to other anti-infective agents; Z88.5 Allergy status to narcotic agent; Z88.6 Allergy status to analgesic agent; Z88.8 Allergy status to other drugs, medicaments and biological substances; Z88.2 Allergy status to sulfonamides
CPT/HCPCS: 36591; 83735; 96365; 96366; J1642; J3475

== ENCOUNTER 2024-04-16 13:25 | Emergency (ER) | payer OTHER ==
[2024-04-16 17:33] LABS: KETONE, URINE AUTO RFX NEGATIVE (NEGATIVE); LEUKOCYTE ESTERASE UR AUTO RFX TRACE (NEGATIVE); MUCUS, URINE RFX SMALL (NEGATIVE); NITRITE, URINE AUTO RFX NEGATIVE (NEGATIVE); RBC, URINE AUTO RFX 23 /HPF (0-3); SQUAM EPITHELIAL CELL UR AURFX 2 /HPF (0-6); WBC, URINE AUTO RFX 10 /HPF (0-3); YEAST LIKE CELL URINE AUTO RFX LARGE
[2024-04-16 17:40] LABS: BASO % 0.2 % (0.0-1.0); HEMATOCRIT 36.2 % (36.0-47.0); HEMOGLOBIN 11.8 g/dl (12.0-15.5); LYMPH # 1.6 10^3/uL (1.5-5.0); MEAN CORPUSCULAR HEMOGLOBIN 30.5 pg (27.0-33.0); MEAN CORPUSCULAR HGB CONC 32.6 g/dl (32.0-36.5); MEAN CORPUSCULAR VOLUME 93.5 fl (80.0-96.0); MONO # 0.8 10^3/uL (0.0-0.8); MONO % 9.4 % (2.0-8.0); NEUTROPHILS # 6.1 10^3/uL (1.5-8.5); NEUTROPHILS % 70.6 % (36.0-66.0); PLATELET COUNT, AUTOMATED 227 10^3/uL (150-450); RED BLOOD COUNT 3.87 10^6/uL (4.00-5.40); WHITE BLOOD COUNT 8.6 10^3/uL (4.0-10.0)
[2024-04-16 17:54] LABS: LIPASE 75 U/L (12-53)
[2024-04-16 17:56] LABS: ALBUMIN 3.4 G/DL (3.2-5.2); ALKALINE PHOSPHATASE 93 U/L (35-104); ALT/SGPT 31 U/L (7.0-40); AST/SGOT 25 U/L (<34); BILIRUBIN,DIRECT < 0.1 MG/DL (<0.4); BILIRUBIN,TOTAL 0.2 MG/DL (0.3-1.2); BLOOD UREA NITROGEN 20 MG/DL (9-23); CALCIUM LEVEL 10.2 MG/DL (8.3-10.6); CARBON DIOXIDE LEVEL 26 MMOL/L (20-31); CHLORIDE LEVEL 105 MMOL/L (98-107); CREATININE FOR GFR 0.49 MG/DL (0.55-1.30); GLOMERULAR FILTRATION RATE > 60.0 (>45); GLUCOSE, FASTING 277 MG/DL (74-106); SODIUM LEVEL 138 MMOL/L (136-145)
[2024-04-16] MEDS: ONDANSETRON 4MG 2ML VIAL IV ONE (18:50)
[2024-04-16] MEDS: HYDROMORPHONE HCL 0.5 MG/ 0.5 ML SYRINGE IV ONE (18:51)
[2024-04-16 20:18] VITALS: BP 143/86; TEMP 98.3; O2SAT 95
== END 2024-04-16 20:33 | disposition home or self-care (01) ==
LOC: M ED 13:25 → EDBD 13:25 → M ED 20:33
DX: R10.84 Generalized abdominal pain (principal); E11.9 Type 2 diabetes mellitus without complications; J45.909 Unspecified asthma, uncomplicated; K21.9 Gastro-esophageal reflux disease without esophagitis; Z93.3 Colostomy status; Z79.4 Long term (current) use of insulin; Z79.899 Other long term (current) drug therapy; Z88.3 Allergy status to other anti-infective agents; Z88.0 Allergy status to penicillin; Z88.2 Allergy status to sulfonamides; Z88.1 Allergy status to other antibiotic agents; Z88.5 Allergy status to narcotic agent; Z88.8 Allergy status to other drugs, medicaments and biological substances; Z91.89 Other specified personal risk factors, not elsewhere classified; Z91.018 Allergy to other foods; Z91.040 Latex allergy status; Z91.041 Radiographic dye allergy status
CPT/HCPCS: 36591; 74018; 74176; 80048; 80076; 81001; 83690; 83735; 85025; 87088; 96365; 96366; 96374; 96375; 99284; J1171; J1642; J2405; J3475

== ENCOUNTER 2024-04-19 10:06 | Outpatient (RCR) | payer OTHER | END 2024-05-14 | LOC: M PT 10:06 | PROVIDERS: ATTEND Physician Assistant | DX: M25.512 Pain in left shoulder (principal) ==

== ENCOUNTER 2024-04-21 06:35 | Outpatient (CLI) | payer OTHER ==
[~2024-04-21] VITALS: Ht 167.6 cm; Wt 70.0 kg
[2024-04-21] MEDS: SODIUM CHLORIDE 0.9% INJ 10 ML SYR IV SCH (06:58)
[2024-04-21 07:00] VITALS: BP 114/56; O2SAT 97
[2024-04-21] MEDS: MAG SULF 1GM/100ML (MAG RUN) IV ONE ×2 (07:00→07:53)
[2024-04-21] MEDS ORDERED: SODIUM CHLORIDE 0.9% INJ 10 ML SYR IV PRN (07:00)
[2024-04-21 09:14] VITALS: BP 112/62; O2SAT 97
== END 2024-04-21 09:15 ==
LOC: M INFU 06:35
PROVIDERS: ATTEND Family Medicine
DX: E83.42 Hypomagnesemia (principal); Z88.0 Allergy status to penicillin; Z88.1 Allergy status to other antibiotic agents; Z88.2 Allergy status to sulfonamides; Z88.3 Allergy status to other anti-infective agents; Z88.5 Allergy status to narcotic agent; Z88.6 Allergy status to analgesic agent; Z88.8 Allergy status to other drugs, medicaments and biological substances; Z91.041 Radiographic dye allergy status; Z91.040 Latex allergy status; Z91.89 Other specified personal risk factors, not elsewhere classified
CPT/HCPCS: 36591; 83735; 96365; 96366; J1642; J3475

== ENCOUNTER 2024-04-28 06:50 | Outpatient (CLI) | payer OTHER ==
[2024-04-28] MEDS: MAG SULF 1GM/100ML (MAG RUN) IV ONE (06:53)
[2024-04-28 07:00] VITALS: BP 106/62; O2SAT 96
[2024-04-28] MEDS: MAG SULF 1GM/100ML (MAG RUN) IV SCH (08:46)
[2024-04-28] MEDS: SODIUM CHLORIDE 0.9% INJ 10 ML SYR IV PRN (10:41)
== END 2024-04-28 12:05 ==
LOC: M INFU 06:50
PROVIDERS: ATTEND Family Medicine
DX: E83.42 Hypomagnesemia (principal); Z88.0 Allergy status to penicillin; Z88.1 Allergy status to other antibiotic agents; Z88.2 Allergy status to sulfonamides; Z88.6 Allergy status to analgesic agent; Z88.8 Allergy status to other drugs, medicaments and biological substances; Z91.041 Radiographic dye allergy status
CPT/HCPCS: 36591; 83735; 96365; 96366; 96375; J1642; J3475

== ENCOUNTER 2024-05-05 07:00 | Outpatient (CLI) | payer OTHER ==
[2024-05-05 07:00] VITALS: BP 138/73; O2SAT 98
[2024-05-05] MEDS: SODIUM CHLORIDE 0.9% INJ 10 ML SYR IV PRN (07:22)
[2024-05-05] MEDS: MAG SULF 1GM/100ML (MAG RUN) IV ONE ×2 (07:22→08:28)
[2024-05-05 08:35] LABS: HEMOGLOBIN A1c 11.2 % (4.0-6.0)
[2024-05-05 09:30] VITALS: BP 139/70; O2SAT 96
== END 2024-05-05 09:30 | disposition home or self-care (01) ==
LOC: M INFU 07:00
PROVIDERS: ATTEND Family Medicine
DX: E83.42 Hypomagnesemia (principal); E11.22 Type 2 diabetes mellitus with diabetic chronic kidney disease; Z91.041 Radiographic dye allergy status; Z91.040 Latex allergy status; Z91.89 Other specified personal risk factors, not elsewhere classified; Z88.0 Allergy status to penicillin; Z88.2 Allergy status to sulfonamides; Z88.1 Allergy status to other antibiotic agents; Z88.3 Allergy status to other anti-infective agents; Z88.5 Allergy status to narcotic agent; Z88.6 Allergy status to analgesic agent; Z88.8 Allergy status to other drugs, medicaments and biological substances
CPT/HCPCS: 36591; 83036; 83735; 96365; 96366; J1642; J3475

== ENCOUNTER 2024-05-12 06:50 | Outpatient (CLI) | payer OTHER ==
[~2024-05-12] VITALS: Ht 167.6 cm; Wt 70.0 kg
[2024-05-12] MEDS: MAG SULF 1GM/100ML (MAG RUN) IV ONE (06:58)
[2024-05-12] MEDS: SODIUM CHLORIDE 0.9% INJ 10 ML SYR IV PRN (06:58)
[2024-05-12 07:02] VITALS: BP 133/69; O2SAT 95
[2024-05-12] MEDS: MAG SULF 1GM/100ML (MAG RUN) IV SCH (07:56)
[2024-05-12 11:00] VITALS: BP 115/63; O2SAT 96
== END 2024-05-12 11:00 ==
LOC: M INFU 06:50
PROVIDERS: ATTEND Family Medicine
DX: E83.42 Hypomagnesemia (principal); Z91.041 Radiographic dye allergy status; Z91.040 Latex allergy status; Z88.3 Allergy status to other anti-infective agents; Z88.0 Allergy status to penicillin; Z88.2 Allergy status to sulfonamides; Z91.89 Other specified personal risk factors, not elsewhere classified; Z88.8 Allergy status to other drugs, medicaments and biological substances; Z88.1 Allergy status to other antibiotic agents; Z88.5 Allergy status to narcotic agent
CPT/HCPCS: 36591; 83735; 96365; 96366; J1642; J3475

== ENCOUNTER 2024-05-12 11:55 | Emergency (ER) | payer OTHER ==
[2024-05-12] MEDS: HYDROmorphone 2 MG TAB PO ONE (15:17)
[2024-05-12 16:45] VITALS: BP 122/66; O2SAT 95
[2024-05-12 16:53] VITALS: TEMP 97
== END 2024-05-12 16:56 | disposition home or self-care (01) ==
LOC: EDBD 11:55 → M ED 11:55
DX: M25.552 Pain in left hip (principal); M25.562 Pain in left knee; Z99.3 Dependence on wheelchair; Z79.4 Long term (current) use of insulin; Z79.899 Other long term (current) drug therapy; Z88.0 Allergy status to penicillin; Z88.2 Allergy status to sulfonamides; Z88.1 Allergy status to other antibiotic agents; Z88.3 Allergy status to other anti-infective agents; Z88.5 Allergy status to narcotic agent; Z88.6 Allergy status to analgesic agent; Z88.8 Allergy status to other drugs, medicaments and biological substances; Z91.041 Radiographic dye allergy status; Z91.040 Latex allergy status; Z91.89 Other specified personal risk factors, not elsewhere classified; Z91.018 Allergy to other foods

== ENCOUNTER 2024-05-19 06:30 | Outpatient (CLI) | payer OTHER ==
[~2024-05-19] VITALS: Ht 167.6 cm; Wt 70.0 kg
[2024-05-19 06:40] VITALS: BP 122/68; O2SAT 98
[2024-05-19] MEDS ORDERED: MAG SULF 1GM/100ML (MAG RUN) IV SCH (07:00)
[2024-05-19] MEDS: MAG SULF 1GM/100ML (MAG RUN) IV ONE ×2 (07:27→08:18)
[2024-05-19] MEDS: SODIUM CHLORIDE 0.9% INJ 10 ML SYR IV SCH (08:18)
[2024-05-19 09:33] VITALS: BP 130/64; O2SAT 97
== END 2024-05-19 09:35 ==
LOC: M INFU 06:30
PROVIDERS: ATTEND Family Medicine
DX: E83.42 Hypomagnesemia (principal); Z91.041 Radiographic dye allergy status; Z91.040 Latex allergy status; Z91.89 Other specified personal risk factors, not elsewhere classified; Z88.0 Allergy status to penicillin; Z88.1 Allergy status to other antibiotic agents; Z88.2 Allergy status to sulfonamides; Z88.3 Allergy status to other anti-infective agents; Z88.5 Allergy status to narcotic agent; Z88.8 Allergy status to other drugs, medicaments and biological substances
CPT/HCPCS: 36591; 83735; 96365; 96366; J1642; J3475

== ENCOUNTER 2024-05-26 07:00 | Outpatient (CLI) | payer OTHER ==
[~2024-05-26] VITALS: Ht 167.6 cm; Wt 69.0 kg
[2024-05-26 07:00] VITALS: BP 145/67; O2SAT 96
[~2024-05-26 07:00] MED LIST changes: +SODIUM CHLORIDE 0.9% INJ 10 ML SYR IV PRN
[2024-05-26] MEDS: MAG SULF 1GM/100ML (MAG RUN) IV ONE (07:24)
[2024-05-26] MEDS: SODIUM CHLORIDE 0.9% INJ 10 ML SYR IV SCH (07:25)
[2024-05-26] MEDS: MAG SULF 1GM/100ML (MAG RUN) IV SCH (08:23)
[2024-05-26 12:00] VITALS: BP 133/68; O2SAT 95
== END 2024-05-26 12:00 ==
LOC: M INFU 07:00
PROVIDERS: ATTEND Family Medicine
DX: E83.42 Hypomagnesemia (principal); Z88.0 Allergy status to penicillin; Z88.2 Allergy status to sulfonamides; Z88.6 Allergy status to analgesic agent; Z88.1 Allergy status to other antibiotic agents; Z88.8 Allergy status to other drugs, medicaments and biological substances; Z91.041 Radiographic dye allergy status; Z91.018 Allergy to other foods
CPT/HCPCS: 36591; 83735; 96365; 96366; 96375; J1642; J3475

== ENCOUNTER → 2024-05-26 | Outpatient (CLI) | payer OTHER | LOC: M PAIN 13:00 | PROVIDERS: ATTEND Anesthesiology | DX: R10.84 Generalized abdominal pain (principal); G89.29 Other chronic pain; E11.40 Type 2 diabetes mellitus with diabetic neuropathy, unspecified; E78.5 Hyperlipidemia, unspecified; J45.909 Unspecified asthma, uncomplicated; K21.9 Gastro-esophageal reflux disease without esophagitis; Z79.82 Long term (current) use of aspirin; Z79.899 Other long term (current) drug therapy; Z88.0 Allergy status to penicillin; Z88.5 Allergy status to narcotic agent; Z88.1 Allergy status to other antibiotic agents; Z88.2 Allergy status to sulfonamides; Z88.8 Allergy status to other drugs, medicaments and biological substances; Z91.041 Radiographic dye allergy status; Z91.048 Other nonmedicinal substance allergy status ==

== ENCOUNTER 2024-06-02 06:50 | Outpatient (CLI) | payer OTHER ==
[~2024-06-02] VITALS: Ht 165.1 cm; Wt 69.0 kg
[~2024-06-02 06:50] MED LIST changes: -SODIUM CHLORIDE 0.9% INJ 10 ML SYR IV PRN
[2024-06-02 07:00] VITALS: BP 141/70; O2SAT 95
[2024-06-02] MEDS: SODIUM CHLORIDE 0.9% INJ 10 ML SYR IV PRN (07:21)
[2024-06-02] MEDS: MAG SULF 1GM/100ML (MAG RUN) IV ONE ×2 (07:21→08:54)
[2024-06-02] MEDS ORDERED: SODIUM CHLORIDE 0.9% INJ 10 ML SYR IV SCH (09:00)
[2024-06-02 10:10] VITALS: BP 128/77; O2SAT 96
== END 2024-06-02 10:10 ==
LOC: M INFU 06:50
PROVIDERS: ATTEND Family Medicine
DX: E83.42 Hypomagnesemia (principal); E11.22 Type 2 diabetes mellitus with diabetic chronic kidney disease; Z88.3 Allergy status to other anti-infective agents; Z88.0 Allergy status to penicillin; Z88.2 Allergy status to sulfonamides; Z88.8 Allergy status to other drugs, medicaments and biological substances; Z88.1 Allergy status to other antibiotic agents; Z88.5 Allergy status to narcotic agent; Z91.041 Radiographic dye allergy status; Z91.040 Latex allergy status; Z91.89 Other specified personal risk factors, not elsewhere classified
CPT/HCPCS: 36591; 83735; 96365; 96366; J1642; J3475

== ENCOUNTER 2024-06-09 06:40 | Outpatient (CLI) | payer OTHER ==
[~2024-06-09] VITALS: Ht 167.6 cm; Wt 69.5 kg
[2024-06-09 07:00] VITALS: BP 139/73; O2SAT 99
[2024-06-09] MEDS: SODIUM CHLORIDE 0.9% INJ 10 ML SYR IV SCH (07:08)
[2024-06-09] MEDS ORDERED: SODIUM CHLORIDE 0.9% INJ 10 ML SYR IV PRN (07:10)
[2024-06-09] MEDS: MAG SULF 1GM/100ML (MAG RUN) IV ONE ×2 (07:10→08:00)
[2024-06-09 09:15] VITALS: BP 121/67; O2SAT 97
== END 2024-06-09 09:15 ==
LOC: M INFU 06:40
PROVIDERS: ATTEND Family Medicine
DX: E83.42 Hypomagnesemia (principal); E11.22 Type 2 diabetes mellitus with diabetic chronic kidney disease; Z91.041 Radiographic dye allergy status; Z91.89 Other specified personal risk factors, not elsewhere classified; Z88.3 Allergy status to other anti-infective agents; Z88.0 Allergy status to penicillin; Z88.2 Allergy status to sulfonamides; Z88.8 Allergy status to other drugs, medicaments and biological substances; Z88.1 Allergy status to other antibiotic agents; Z91.040 Latex allergy status; Z88.5 Allergy status to narcotic agent
CPT/HCPCS: 36591; 83735; 96365; 96366; J1642; J3475

== ENCOUNTER 2024-06-16 06:31 | Outpatient (CLI) | payer OTHER ==
[~2024-06-16] VITALS: Ht 170.2 cm; Wt 68.2 kg
[2024-06-16 06:57] VITALS: BP 126/68; O2SAT 93
[2024-06-16] MEDS ORDERED: SODIUM CHLORIDE 0.9% INJ 10 ML SYR IV PRN (07:20)
[2024-06-16] MEDS: MAG SULF 1GM/100ML (MAG RUN) 100 ML IV ONE ×3 (07:29→09:15)
[2024-06-16] MEDS: SODIUM CHLORIDE 0.9% INJ 10 ML SYR IV SCH (07:29)
[2024-06-16 08:36] LABS: HEMATOCRIT 33.8 % (36.0-47.0); HEMOGLOBIN 10.8 g/dl (12.0-15.5); MEAN CORPUSCULAR VOLUME 97.1 fl (80.0-96.0); PLATELET COUNT, AUTOMATED 179 10^3/uL (150-450); RED BLOOD COUNT 3.48 10^6/uL (4.00-5.40); WHITE BLOOD COUNT 7.1 10^3/uL (4.0-10.0)
[2024-06-16 10:03] LABS: ALBUMIN 2.9 G/DL (3.2-5.2); ALKALINE PHOSPHATASE 104 U/L (35-104); ALT/SGPT 30 U/L (7.0-40); AST/SGOT 33 U/L (<34); BILIRUBIN,TOTAL 0.2 MG/DL (0.3-1.2); BLOOD UREA NITROGEN 14 MG/DL (9-23); CALCIUM LEVEL 9.4 MG/DL (8.3-10.6); CARBON DIOXIDE LEVEL 25 MMOL/L (20-31); CHLORIDE LEVEL 104 MMOL/L (98-107); CREATININE FOR GFR 0.45 MG/DL (0.55-1.30); GLOMERULAR FILTRATION RATE > 60.0 (>45); GLUCOSE, FASTING 389 MG/DL (74-106); POTASSIUM SERUM 4.2 MMOL/L (3.5-5.1); SODIUM LEVEL 139 MMOL/L (136-145); TOTAL PROTEIN 7.4 G/DL (5.7-8.2)
[2024-06-16 10:15] VITALS: BP 142/78; O2SAT 94
== END 2024-06-16 10:30 | disposition home or self-care (01) ==
LOC: M INFU 06:31
PROVIDERS: ATTEND Family Medicine
DX: E83.42 Hypomagnesemia (principal); E11.22 Type 2 diabetes mellitus with diabetic chronic kidney disease; Z91.040 Latex allergy status; Z91.041 Radiographic dye allergy status; Z91.89 Other specified personal risk factors, not elsewhere classified; Z88.0 Allergy status to penicillin; Z88.2 Allergy status to sulfonamides; Z88.1 Allergy status to other antibiotic agents; Z88.5 Allergy status to narcotic agent; Z88.3 Allergy status to other anti-infective agents; Z88.8 Allergy status to other drugs, medicaments and biological substances
CPT/HCPCS: 36591; 80053; 83735; 85027; 96365; 96366; J1642; J3475

== ENCOUNTER 2024-06-23 07:00 | Outpatient (CLI) | payer OTHER ==
[~2024-06-23] VITALS: Ht 170.2 cm; Wt 68.2 kg
[2024-06-23 07:00] VITALS: BP 137/67; O2SAT 96
[~2024-06-23 07:00] MED LIST changes: +SODIUM CHLORIDE 0.9% INJ 10 ML SYR IV PRN
[2024-06-23] MEDS: MAG SULF 1GM/100ML (MAG RUN) IV ONE (07:17)
[2024-06-23] MEDS: SODIUM CHLORIDE 0.9% INJ 10 ML SYR IV SCH (07:17)
[2024-06-23] MEDS: MAG SULF 1GM/100ML (MAG RUN) IV SCH (08:17)
[2024-06-23 11:18] VITALS: BP 138/72; O2SAT 95
== END 2024-06-23 11:25 ==
LOC: M INFU 07:00
PROVIDERS: ATTEND Family Medicine
DX: E83.42 Hypomagnesemia (principal); E11.22 Type 2 diabetes mellitus with diabetic chronic kidney disease; Z91.040 Latex allergy status; Z91.041 Radiographic dye allergy status; Z91.89 Other specified personal risk factors, not elsewhere classified; Z88.0 Allergy status to penicillin; Z88.2 Allergy status to sulfonamides; Z88.1 Allergy status to other antibiotic agents; Z88.8 Allergy status to other drugs, medicaments and biological substances; Z88.5 Allergy status to narcotic agent; Z88.3 Allergy status to other anti-infective agents
CPT/HCPCS: 36591; 83735; 96365; 96366; J1642; J3475

== ENCOUNTER 2024-06-30 07:00 | Outpatient (CLI) | payer OTHER ==
[2024-06-30 07:00] VITALS: BP 123/60; O2SAT 95
[2024-06-30] MEDS: MAG SULF 1GM/100ML (MAG RUN) X1 IV ONE (07:30)
[2024-06-30] MEDS: SODIUM CHLORIDE 0.9% INJ 10 ML SYR IV SCH (07:31)
[2024-06-30] MEDS ORDERED: MAGNESIUM SULFATE 1GM/100ML D5W BAG (10MG/ML) IV SCH (09:00)
[2024-06-30] MEDS: MAGNESIUM SULFATE 1 GM/100 ML IV SCH (09:11)
[2024-06-30] MEDS: ALTEPLASE 2MG/2ML VIAL XX PRN (12:11)
[2024-06-30 13:04] VITALS: BP 127/67; O2SAT 97
== END 2024-06-30 13:10 ==
LOC: M INFU 07:00
PROVIDERS: ATTEND Family Medicine
DX: E83.42 Hypomagnesemia (principal); E11.22 Type 2 diabetes mellitus with diabetic chronic kidney disease; Z91.89 Other specified personal risk factors, not elsewhere classified; Z91.040 Latex allergy status; Z91.041 Radiographic dye allergy status; Z88.3 Allergy status to other anti-infective agents; Z88.0 Allergy status to penicillin; Z88.2 Allergy status to sulfonamides; Z88.8 Allergy status to other drugs, medicaments and biological substances; Z88.1 Allergy status to other antibiotic agents; Z88.5 Allergy status to narcotic agent
CPT/HCPCS: 36415; 36591; 36593; 83735; 96365; 96366; 96375; J1642; J2997; J3475

== ENCOUNTER 2024-07-02 10:39 | Emergency (ER) | payer OTHER ==
[~2024-07-02] VITALS: Ht 167.6 cm; Wt 68.2 kg
[~2024-07-02 10:39] MED LIST changes: -SODIUM CHLORIDE 0.9% INJ 10 ML SYR IV PRN
[2024-07-02] MEDS: ACETAMINOPHEN 500 MG TAB PO ONE (13:43)
[2024-07-02 15:21] VITALS: BP 114/61; TEMP 97.4; O2SAT 96
== END 2024-07-02 17:00 | disposition home or self-care (01) ==
LOC: M ED 10:39 → EDBD 10:39 → M ED 17:00
DX: S63.501A Unspecified sprain of right wrist, initial encounter (principal); W23.2XXA Caught, crushed, jammed or pinched between a moving and stationary object, initial encounter; Y92.89 Other specified places as the place of occurrence of the external cause; Y93.9 Activity, unspecified; Y99.9 Unspecified external cause status

== ENCOUNTER 2024-07-07 06:59 | Outpatient (CLI) | payer OTHER ==
[~2024-07-07] VITALS: Ht 170.2 cm; Wt 68.0 kg
[2024-07-07 06:59] VITALS: BP 146/69; O2SAT 95
[2024-07-07] MEDS ORDERED: SODIUM CHLORIDE 0.9% INJ 10 ML SYR IV PRN (07:00)
[2024-07-07] MEDS: SODIUM CHLORIDE 0.9% INJ 10 ML SYR IV SCH (07:10)
[2024-07-07] MEDS: MAG SULF 1GM/100ML (MAG RUN) X1 IV ONE (07:11)
[2024-07-07] MEDS: MAG SULF 1GM/100ML (MAG RUN) X1 IV SCH (07:59)
[2024-07-07 11:18] VITALS: BP 127/64; O2SAT 92
== END 2024-07-07 11:20 ==
LOC: M INFU 06:59
PROVIDERS: ATTEND Family Medicine
DX: E83.42 Hypomagnesemia (principal); E11.22 Type 2 diabetes mellitus with diabetic chronic kidney disease; Z91.040 Latex allergy status; Z91.041 Radiographic dye allergy status; Z91.89 Other specified personal risk factors, not elsewhere classified; Z88.0 Allergy status to penicillin; Z88.1 Allergy status to other antibiotic agents; Z88.2 Allergy status to sulfonamides; Z88.5 Allergy status to narcotic agent; Z88.3 Allergy status to other anti-infective agents; Z88.8 Allergy status to other drugs, medicaments and biological substances
CPT/HCPCS: 36591; 83735; 96365; 96366; J1642; J3475

== ENCOUNTER 2024-07-14 14:16 | Emergency (ER) | payer OTHER ==
[~2024-07-14] VITALS: Ht 170.2 cm; Wt 80.1 kg
[~2024-07-14 14:16] MED LIST changes: +AMMO12CR4 TOP; -AMMO12CR7 TOP; -FLOM0.4C39 PO; +LIDO1ADH93 TD; -LIDO5DIS41 TD; +TAMS-18 PO
[2024-07-14] MEDS: KETOROLAC 30 MG/ML 1ML VIAL IV ONE (17:15)
[2024-07-14 18:01] VITALS: BP 112/65; TEMP 99.1; O2SAT 96
[2024-07-14] MEDS: SODIUM CHLORIDE 0.9% INJ 10 ML SYR IV PRN (18:33)
== END 2024-07-14 18:49 | disposition home or self-care (01) ==
LOC: M ED 14:16
DX: G89.29 Other chronic pain (principal); R10.9 Unspecified abdominal pain; E11.9 Type 2 diabetes mellitus without complications; K21.9 Gastro-esophageal reflux disease without esophagitis; E78.5 Hyperlipidemia, unspecified; J45.909 Unspecified asthma, uncomplicated; Z86.711 Personal history of pulmonary embolism; Z86.718 Personal history of other venous thrombosis and embolism; Z79.4 Long term (current) use of insulin; Z79.899 Other long term (current) drug therapy; Z88.3 Allergy status to other anti-infective agents; Z88.0 Allergy status to penicillin; Z88.2 Allergy status to sulfonamides; Z88.1 Allergy status to other antibiotic agents; Z88.5 Allergy status to narcotic agent; Z91.89 Other specified personal risk factors, not elsewhere classified; Z91.041 Radiographic dye allergy status; Z91.040 Latex allergy status; Z91.018 Allergy to other foods
CPT/HCPCS: 36591; 83735; 96365; 96366; 96374; 99284; J1642; J1885; J3475

== ENCOUNTER 2024-07-20 13:49 | Emergency (ER) | payer OTHER ==
[~2024-07-20] VITALS: Ht 170.2 cm; Wt 68.2 kg
[~2024-07-20 13:49] MED LIST changes: -AMMO12CR4 TOP; +AMMO12CR7 TOP; +FLOM0.4C39 PO; -LIDO1ADH93 TD; +LIDO5DIS41 TD; -TAMS-18 PO
[2024-07-20 14:49] LABS: BASO % 0.4 % (0.0-1.0); EOS % 0.1 % (0.0-3.0); HEMATOCRIT 36.5 % (36.0-47.0); LYMPH # 1.4 10^3/uL (1.5-5.0); LYMPH % 18.7 % (24.0-44.0); MEAN CORPUSCULAR HEMOGLOBIN 30.8 pg (27.0-33.0); MEAN CORPUSCULAR HGB CONC 32.9 g/dl (32.0-36.5); MEAN CORPUSCULAR VOLUME 93.6 fl (80.0-96.0); MONO # 0.6 10^3/uL (0.0-0.8); MONO % 7.4 % (2.0-8.0); NEUTROPHILS # 5.4 10^3/uL (1.5-8.5); NEUTROPHILS % 72.9 % (36.0-66.0); PLATELET COUNT, AUTOMATED 213 10^3/uL (150-450); WHITE BLOOD COUNT 7.4 10^3/uL (4.0-10.0)
[2024-07-20 15:26] LABS: LIPASE 37 U/L (12-53)
[2024-07-20 15:30] LABS: ALBUMIN 3.6 G/DL (3.2-5.2); ALKALINE PHOSPHATASE 100 U/L (35-104); ALT/SGPT 27 U/L (7.0-40); AST/SGOT 26 U/L (<34); BILIRUBIN,DIRECT < 0.1 MG/DL (<0.4); BILIRUBIN,TOTAL 0.2 MG/DL (0.3-1.2); BLOOD UREA NITROGEN 14 MG/DL (9-23); CARBON DIOXIDE LEVEL 28 MMOL/L (20-31); CHLORIDE LEVEL 101 MMOL/L (98-107); CREATININE FOR GFR 0.43 MG/DL (0.55-1.30); GLOMERULAR FILTRATION RATE > 60.0 (>45); GLUCOSE, FASTING 305 MG/DL (74-106); POTASSIUM SERUM 4.1 MMOL/L (3.5-5.1); SODIUM LEVEL 138 MMOL/L (136-145); TOTAL PROTEIN 7.5 G/DL (5.7-8.2)
[2024-07-20] MEDS: HYDROMORPHONE HCL 0.5 MG/ 0.5 ML SYRINGE IM ONE (18:07)
[2024-07-20] MEDS: ONDANSETRON 4MG ORAL DISINTEGRATING TAB PO ONE (19:11)
[2024-07-20] MEDS: NS (Normal Saline) 0.9% 1,000 ML IV ONE (19:45)
[2024-07-20] MEDS ORDERED: SODIUM CHLORIDE 0.9% INJ 10 ML SYR IV PRN (19:50)
[2024-07-20] MEDS: LIDOCAINE 2% 5ML JELLY UROJET TOP ONE (20:10)
[2024-07-20] MEDS: HYDROMORPHONE HCL 0.5 MG/ 0.5 ML SYRINGE IV ONE (22:10)
[2024-07-20 22:21] VITALS: BP 155/70; TEMP 97.5
[2024-07-20 22:29] VITALS: O2SAT 96
[2024-07-20] MEDS ORDERED: HYDROMORPHONE HCL 0.5 MG/ 0.5 ML SYRINGE IV PRN (22:35)
== END 2024-07-20 22:46 | disposition short-term general hospital (02) ==
LOC: M ED 13:49
DX: K31.1 Adult hypertrophic pyloric stenosis (principal); K31.5 Obstruction of duodenum; Z88.1 Allergy status to other antibiotic agents; Z88.2 Allergy status to sulfonamides; Z88.8 Allergy status to other drugs, medicaments and biological substances; Z88.6 Allergy status to analgesic agent; Z91.041 Radiographic dye allergy status; E11.9 Type 2 diabetes mellitus without complications; K21.9 Gastro-esophageal reflux disease without esophagitis; E78.5 Hyperlipidemia, unspecified; J45.909 Unspecified asthma, uncomplicated; Z86.711 Personal history of pulmonary embolism; Z86.718 Personal history of other venous thrombosis and embolism; Z79.4 Long term (current) use of insulin; Z79.899 Other long term (current) drug therapy
CPT/HCPCS: 74018; 74176; 80048; 80076; 83690; 85025; 96361; 96372; 96374; 99284; J1171

== ENCOUNTER 2024-08-04 06:15 | Outpatient (CLI) | payer OTHER ==
[~2024-08-04] VITALS: Ht 170.2 cm; Wt 68.0 kg
[~2024-08-04 06:15] MED LIST changes: -FLOM0.4C39 PO; +TAMS-18 PO
[2024-08-04] MEDS ORDERED: SODIUM CHLORIDE 0.9% INJ 10 ML SYR IV PRN (06:50)
[2024-08-04 07:00] VITALS: BP 108/60; O2SAT 96
[2024-08-04] MEDS: SODIUM CHLORIDE 0.9% INJ 10 ML SYR IV SCH (07:40)
[2024-08-04] MEDS: MAG SULF 1GM/100ML (MAG RUN) X1 IV ONE (07:40)
[2024-08-04] MEDS: MAGNESIUM SULFATE 1 GM/100 ML IV SCH (08:41)
[2024-08-04 10:20] VITALS: BP 119/66; O2SAT 97
== END 2024-08-04 10:35 ==
LOC: M INFU 06:15
PROVIDERS: ATTEND Family Medicine
DX: E83.42 Hypomagnesemia (principal); E11.22 Type 2 diabetes mellitus with diabetic chronic kidney disease; Z91.040 Latex allergy status; Z91.041 Radiographic dye allergy status; Z91.89 Other specified personal risk factors, not elsewhere classified; Z88.0 Allergy status to penicillin; Z88.2 Allergy status to sulfonamides; Z88.1 Allergy status to other antibiotic agents; Z88.5 Allergy status to narcotic agent; Z88.3 Allergy status to other anti-infective agents; Z88.8 Allergy status to other drugs, medicaments and biological substances
CPT/HCPCS: 36415; 83735; 96365; 96366; J1642; J3475

== ENCOUNTER 2024-08-08 07:29 | Observation (INO) | payer OTHER ==
[~2024-08-08] VITALS: Ht 167.6 cm; Wt 76.0 kg
[2024-08-08] MEDS ORDERED: SODIUM CHLORIDE 0.9% INJ 10 ML SYR IV PRN (09:00)
[2024-08-08] MEDS: SODIUM CHLORIDE 0.9% INJ 10 ML SYR IV SCH (09:00)
[2024-08-08] MEDS: HYDROMORPHONE HCL 0.5 MG/ 0.5 ML SYRINGE IV PRN ×2 (09:04→19:26)
[2024-08-08] MEDS: ONDANSETRON 4MG 2ML VIAL IV ONE ×2 (09:04→12:09)
[2024-08-08] MEDS: NS (Normal Saline) 0.9% 1,000 ML IV ONE ×3 (09:04→16:01)
[2024-08-08 09:16] LABS: BASO % 0.3 % (0.0-1.0); EOS # 0.1 10^3/uL (0.0-0.5); EOS % 0.6 % (0.0-3.0); HEMATOCRIT 44.7 % (36.0-47.0); HEMOGLOBIN 14.4 g/dl (12.0-15.5); LYMPH % 11.4 % (24.0-44.0); MEAN CORPUSCULAR HEMOGLOBIN 30.5 pg (27.0-33.0); MEAN CORPUSCULAR HGB CONC 32.2 g/dl (32.0-36.5); MEAN CORPUSCULAR VOLUME 94.7 fl (80.0-96.0); MONO # 1.3 10^3/uL (0.0-0.8); MONO % 14.9 % (2.0-8.0); NEUTROPHILS # 6.3 10^3/uL (1.5-8.5); NEUTROPHILS % 72.5 % (36.0-66.0); PLATELET COUNT, AUTOMATED 228 10^3/uL (150-450); RED BLOOD COUNT 4.72 10^6/uL (4.00-5.40); WHITE BLOOD COUNT 8.7 10^3/uL (4.0-10.0)
[2024-08-08 09:32] LABS: LIPASE 28 U/L (12-53)
[2024-08-08 09:33] LABS: AMYLASE 27 U/L (30-118); CPK CREATINE PHOSPHOKINASE 113 U/L (34-145)
[2024-08-08 09:34] LABS: ALBUMIN 3.7 G/DL (3.2-5.2); ALKALINE PHOSPHATASE 144 U/L (35-104); ALT/SGPT 48 U/L (7.0-40); AST/SGOT 40 U/L (<34); BILIRUBIN,DIRECT 0.1 MG/DL (<0.4); BILIRUBIN,TOTAL 0.4 MG/DL (0.3-1.2); BLOOD UREA NITROGEN 20 MG/DL (9-23); CALCIUM LEVEL 10.7 MG/DL (8.3-10.6); CARBON DIOXIDE LEVEL 26 MMOL/L (20-31); CHLORIDE LEVEL 100 MMOL/L (98-107); CK-MB VALUE MASS 1.6 NG/ML (<3.6); CREATININE FOR GFR 0.72 MG/DL (0.55-1.30); GLOMERULAR FILTRATION RATE > 90.0 (>45); GLUCOSE, FASTING 246 MG/DL (74-106); MB/CK RELATIVE INDEX 1.41 (< OR =4); POTASSIUM SERUM 3.8 MMOL/L (3.5-5.1); SODIUM LEVEL 138 MMOL/L (136-145); TOTAL PROTEIN 8.2 G/DL (5.7-8.2)
[2024-08-08 10:28] LABS: CK-MB VALUE MASS < 1.0 NG/ML (<3.6)
[2024-08-08 10:33] LABS: CPK CREATINE PHOSPHOKINASE 94 U/L (34-145); MB/CK RELATIVE INDEX 1.06 (< OR =4)
[2024-08-08 12:20] LABS: KETONE, URINE AUTO RFX TRACE mg/dL (NEGATIVE); MUCUS, URINE RFX MODERATE (NEGATIVE); NITRITE, URINE AUTO RFX NEGATIVE (NEGATIVE); RBC, URINE AUTO RFX 31 /HPF (0-3); SQUAM EPITHELIAL CELL UR AURFX 8 /HPF (0-6); YEAST LIKE CELL URINE AUTO RFX SMALL
[2024-08-08 12:21] LABS: LEUKOCYTE ESTERASE UR AUTO RFX 3+ (NEGATIVE); WBC, URINE AUTO RFX TNTC /HPF (0-3)
[2024-08-08] MEDS ORDERED: ALBUTEROL SULFATE 2.5MG/0.5ML INH CONCENTRATE NEB SOLN INH PRN (15:00)
[2024-08-08] MEDS ORDERED: ACETAMINOPHEN 325 MG TAB PO PRN (15:00)
[2024-08-08] MEDS ORDERED: DEXTROSE 50% 50ML SYRINGE IV PRN (15:30)
[2024-08-08] MEDS ORDERED: GLUCAGON INJ 1MG VIAL SC PRN (15:30)
[2024-08-08] MEDS ORDERED: GLUCOSE 4 GM CHEW PO PRN (15:30)
[2024-08-08] MEDS ORDERED: LORA-1041 PO (16:00)
[2024-08-08] MEDS: cefTRIAXone SOD 1 GM in DEXTROSE 5% (D5W) ADV/MINI-BAG 50 ML IV SCH (16:01)
[2024-08-08] MEDS: ONDANSETRON 4MG 2ML VIAL IV PRN (16:02)
[2024-08-08] MEDS ORDERED: HOME MED LIST COMPLETE! XX SCH (16:05)
[2024-08-08 16:43] VITALS: BP 111/58; TEMP 97.3; O2SAT 95
[2024-08-08] MEDS ORDERED: MIRALAX *UNIT DOSE* 17GM PACKET PO PRN (16:55)
[2024-08-08] MEDS ORDERED: LACTULOSE 20GM/30ML SYRUP UDC PO PRN (16:55)
[2024-08-08] MEDS: NYSTATIN 100,000 UNITS/GM TOPICAL PWD 15GM TOP SCH (17:00)
[2024-08-08] MEDS: DICYCLOMINE 10 MG CAP PO SCH (17:31)
[2024-08-08] MEDS: INSULIN LISPRO (NovoLOG) PER UNIT SC SCH (17:32)
[2024-08-08] MEDS: SIMETHICONE 80MG CHEW TAB PO SCH (17:32)
[2024-08-08] MEDS: NS (Normal Saline) 0.9% 1,000 ML IV SCH (18:35)
[2024-08-08 19:48] VITALS: BP 119/63; TEMP 97.3; O2SAT 94
[2024-08-08] MEDS: FLUTICASONE PROP 0.05% NASAL SPRAY 16 GM (FLONASE) NARES SCH (20:11)
[2024-08-08] MEDS: FAMOTIDINE 20 MG TAB PO SCH (20:12)
[2024-08-08] MEDS: SENNA 8.6 MG TAB (SENOKOT) PO SCH (20:12)
[2024-08-08] MEDS: ATORVASTATIN 20 MG TAB PO SCH (20:12)
[2024-08-08] MEDS: AMITRIPTYLINE 50 MG TAB PO SCH (20:13)
[2024-08-08] MEDS: SUCRALFATE 1 GM TAB PO SCH (20:13)
[2024-08-08] MEDS: POLYVINYL ALCOHOL OPHTH SOLN 15ML (LIQUITEARS) OU PRN (22:52)
[2024-08-08 23:55] VITALS: BP 101/50; TEMP 97.1; O2SAT 95
[2024-08-09] VITALS (7 sets, daily range): BP systolic 102–116; BP diastolic 53–65; TEMP 97.1–98.3; O2SAT 93–95
[2024-08-09 05:28] LABS: BASO % 0.3 % (0.0-1.0); EOS # 0.1 10^3/uL (0.0-0.5); EOS % 1.9 % (0.0-3.0); HEMATOCRIT 33.4 % (36.0-47.0); LYMPH # 1.4 10^3/uL (1.5-5.0); LYMPH % 21.8 % (24.0-44.0); MEAN CORPUSCULAR HEMOGLOBIN 30.9 pg (27.0-33.0); MEAN CORPUSCULAR HGB CONC 31.7 g/dl (32.0-36.5); MEAN CORPUSCULAR VOLUME 97.4 fl (80.0-96.0); MONO # 0.5 10^3/uL (0.0-0.8); MONO % 8.4 % (2.0-8.0); NEUTROPHILS # 4.3 10^3/uL (1.5-8.5); NEUTROPHILS % 67.3 % (36.0-66.0); PLATELET COUNT, AUTOMATED 169 10^3/uL (150-450); RED BLOOD COUNT 3.43 10^6/uL (4.00-5.40); WHITE BLOOD COUNT 6.4 10^3/uL (4.0-10.0)
[2024-08-09 05:31] LABS: HEMOGLOBIN 10.6 g/dl (12.0-15.5)
[2024-08-09 05:35] LABS: ALBUMIN 2.6 G/DL (3.2-5.2); ALKALINE PHOSPHATASE 98 U/L (35-104); ALT/SGPT 31 U/L (7.0-40); AST/SGOT 22 U/L (<34); BILIRUBIN,TOTAL 0.2 MG/DL (0.3-1.2); BLOOD UREA NITROGEN 15 MG/DL (9-23); CALCIUM LEVEL 8.1 MG/DL (8.3-10.6); CARBON DIOXIDE LEVEL 26 MMOL/L (20-31); CHLORIDE LEVEL 109 MMOL/L (98-107); CREATININE FOR GFR 0.45 MG/DL (0.55-1.30); GLOMERULAR FILTRATION RATE > 90.0 (>45); GLUCOSE, FASTING 76 MG/DL (74-106); MAGNESIUM LEVEL 1.3 MG/DL (1.8-2.4); POTASSIUM SERUM 3.5 MMOL/L (3.5-5.1); SODIUM LEVEL 142 MMOL/L (136-145)
[2024-08-09] MEDS: MAG SULF 1GM/100ML (MAG RUN) 1 GM in IV 1 EA IV SCH (08:24)
[2024-08-09] MEDS: ENOXAPARIN 40MG/0.4ML SYRINGE (J1650 PER 10MG) SC SCH (08:26)
[2024-08-09] MEDS: AMITRIPTYLINE 50 MG TAB PO SCH (08:27)
[2024-08-09] MEDS: LORATADINE 10 MG TAB PO SCH (08:27)
[2024-08-09] MEDS: POTASSIUM CHLORIDE 10MEQ SR TABLET PO ONE (08:28)
[2024-08-09] MEDS: HYDROmorphone HCL 2MG/ML 1ML VIAL IV ONE (11:07)
[2024-08-09] MEDS: KCL 10MEQ/100ML SWI (KRUN) 10 MEQ in IV 1 EA IV SCH (13:36)
[2024-08-09] MEDS: HYDROmorphone HCL 2MG/ML 1ML VIAL IV PRN (14:45)
[2024-08-09] MEDS: INSULIN LISPRO (NovoLOG) PER UNIT SC SCH ×2 (17:30→22:53)
[2024-08-09] MEDS: LOTEPREDNOL OPTH OU SCH (17:51)
[2024-08-10] VITALS (7 sets, daily range): BP systolic 105–122; BP diastolic 57–63; TEMP 97–97.5; O2SAT 92–97
[2024-08-10 05:37] LABS: BASO % 0.4 % (0.0-1.0); EOS # 0.1 10^3/uL (0.0-0.5); EOS % 2.6 % (0.0-3.0); HEMATOCRIT 32.4 % (36.0-47.0); HEMOGLOBIN 10.1 g/dl (12.0-15.5); LYMPH % 20.9 % (24.0-44.0); MEAN CORPUSCULAR HEMOGLOBIN 30.5 pg (27.0-33.0); MEAN CORPUSCULAR HGB CONC 31.2 g/dl (32.0-36.5); MEAN CORPUSCULAR VOLUME 97.9 fl (80.0-96.0); MONO # 0.5 10^3/uL (0.0-0.8); MONO % 9.7 % (2.0-8.0); NEUTROPHILS # 3.3 10^3/uL (1.5-8.5); PLATELET COUNT, AUTOMATED 166 10^3/uL (150-450); RED BLOOD COUNT 3.31 10^6/uL (4.00-5.40)
[2024-08-10 06:36] LABS: ALBUMIN 2.5 G/DL (3.2-5.2); ALKALINE PHOSPHATASE 97 U/L (35-104); ALT/SGPT 27 U/L (7.0-40); AST/SGOT 18 U/L (<34); BILIRUBIN,TOTAL 0.2 MG/DL (0.3-1.2); BLOOD UREA NITROGEN 5 MG/DL (9-23); CALCIUM LEVEL 8.4 MG/DL (8.3-10.6); CARBON DIOXIDE LEVEL 27 MMOL/L (20-31); CHLORIDE LEVEL 108 MMOL/L (98-107); CREATININE FOR GFR 0.39 MG/DL (0.55-1.30); GLOMERULAR FILTRATION RATE > 90.0 (>45); GLUCOSE, FASTING 150 MG/DL (74-106); MAGNESIUM LEVEL 1.9 MG/DL (1.8-2.4); POTASSIUM SERUM 4.1 MMOL/L (3.5-5.1); SODIUM LEVEL 141 MMOL/L (136-145); TOTAL PROTEIN 6.3 G/DL (5.7-8.2)
[2024-08-10] MEDS: HYDROmorphone 2 MG TAB PO PRN (12:08)
[2024-08-11 03:49] VITALS: BP 114/59; TEMP 97.6; O2SAT 94
[2024-08-11 06:21] LABS: BASO % 0.2 % (0.0-1.0); EOS # 0.1 10^3/uL (0.0-0.5); EOS % 1.8 % (0.0-3.0); HEMATOCRIT 35.3 % (36.0-47.0); HEMOGLOBIN 10.9 g/dl (12.0-15.5); LYMPH # 1.2 10^3/uL (1.5-5.0); LYMPH % 27.3 % (24.0-44.0); MEAN CORPUSCULAR HGB CONC 30.9 g/dl (32.0-36.5); MEAN CORPUSCULAR VOLUME 97.2 fl (80.0-96.0); MONO # 0.4 10^3/uL (0.0-0.8); MONO % 8.9 % (2.0-8.0); NEUTROPHILS # 2.8 10^3/uL (1.5-8.5); NEUTROPHILS % 61.4 % (36.0-66.0); PLATELET COUNT, AUTOMATED 170 10^3/uL (150-450); RED BLOOD COUNT 3.63 10^6/uL (4.00-5.40); WHITE BLOOD COUNT 4.5 10^3/uL (4.0-10.0)
[2024-08-11 06:44] LABS: ALBUMIN 2.6 G/DL (3.2-5.2); ALKALINE PHOSPHATASE 100 U/L (35-104); ALT/SGPT 27 U/L (7.0-40); AST/SGOT 18 U/L (<34); BILIRUBIN,TOTAL 0.2 MG/DL (0.3-1.2); BLOOD UREA NITROGEN < 5 MG/DL (9-23); CALCIUM LEVEL 9.4 MG/DL (8.3-10.6); CARBON DIOXIDE LEVEL 29 MMOL/L (20-31); CHLORIDE LEVEL 106 MMOL/L (98-107); CREATININE FOR GFR 0.44 MG/DL (0.55-1.30); GLOMERULAR FILTRATION RATE > 90.0 (>45); GLUCOSE, FASTING 211 MG/DL (74-106); MAGNESIUM LEVEL 1.5 MG/DL (1.8-2.4); POTASSIUM SERUM 4.2 MMOL/L (3.5-5.1); SODIUM LEVEL 142 MMOL/L (136-145); TOTAL PROTEIN 6.2 G/DL (5.7-8.2)
[2024-08-11 07:43] VITALS: BP 110/55; TEMP 97.4; O2SAT 97
[2024-08-11] MEDS: MAG SULF 1GM/100ML (MAG RUN) 1 GM in IV 1 EA IV SCH (08:04)
[2024-08-11 12:00] VITALS: BP 118/60; TEMP 97.6; O2SAT 96
[2024-08-11 19:55] VITALS: BP 105/54; TEMP 98.1; O2SAT 97
[2024-08-11] MEDS: LanTUS (INSULIN GLARGINE INJ) 1 UNITS/0.01 ML SC SCH (20:57)
[2024-08-11 23:56] VITALS: BP 122/60; TEMP 97.3; O2SAT 96
[2024-08-12 03:13] VITALS: BP 135/66; TEMP 97.4; O2SAT 94
[2024-08-12 04:55] LABS: BASO % 0.4 % (0.0-1.0); EOS # 0.1 10^3/uL (0.0-0.5); EOS % 1.7 % (0.0-3.0); HEMATOCRIT 32.2 % (36.0-47.0); HEMOGLOBIN 10.3 g/dl (12.0-15.5); LYMPH # 1.4 10^3/uL (1.5-5.0); LYMPH % 29.4 % (24.0-44.0); MEAN CORPUSCULAR HEMOGLOBIN 30.8 pg (27.0-33.0); MEAN CORPUSCULAR VOLUME 96.4 fl (80.0-96.0); MONO # 0.4 10^3/uL (0.0-0.8); MONO % 9.1 % (2.0-8.0); NEUTROPHILS # 2.7 10^3/uL (1.5-8.5); PLATELET COUNT, AUTOMATED 164 10^3/uL (150-450); RED BLOOD COUNT 3.34 10^6/uL (4.00-5.40); WHITE BLOOD COUNT 4.6 10^3/uL (4.0-10.0)
[2024-08-12 05:36] LABS: ALBUMIN 2.4 G/DL (3.2-5.2); ALKALINE PHOSPHATASE 94 U/L (35-104); ALT/SGPT 27 U/L (7.0-40); AST/SGOT 15 U/L (<34); BILIRUBIN,TOTAL < 0.2 MG/DL (0.3-1.2); BLOOD UREA NITROGEN 5 MG/DL (9-23); CALCIUM LEVEL 8.7 MG/DL (8.3-10.6); CARBON DIOXIDE LEVEL 31 MMOL/L (20-31); CHLORIDE LEVEL 102 MMOL/L (98-107); CREATININE FOR GFR 0.46 MG/DL (0.55-1.30); GLOMERULAR FILTRATION RATE > 90.0 (>45); GLUCOSE, FASTING 293 MG/DL (74-106); MAGNESIUM LEVEL 1.6 MG/DL (1.8-2.4); POTASSIUM SERUM 4.5 MMOL/L (3.5-5.1); SODIUM LEVEL 138 MMOL/L (136-145); TOTAL PROTEIN 5.8 G/DL (5.7-8.2)
[2024-08-12] MEDS: MAG SULF 1GM/100ML (MAG RUN) 1 GM in IV 1 EA IV ONE ×2 (06:13→08:52)
[2024-08-12 07:41] VITALS: BP 118/56; TEMP 97.4; O2SAT 98
[2024-08-12 11:28] VITALS: BP 110/55; TEMP 97.1; O2SAT 96
[2024-08-12] MEDS ORDERED: MAGN400T2 PO (20:44)
[2024-08-13] MEDS ORDERED: LEVEMIR FLEXPEN INJ ×2 (19:12)
[2024-08-13] MEDS ORDERED: MAGN400T2 PO (19:19)
== END 2024-08-12 14:59 | disposition home or self-care (01) ==
LOC: EDBD 07:29 → M ED 07:29 → M ED INP 14:56 → M PCU 16:36
PROVIDERS: ADMIT Internal Medicine; ATTEND Internal Medicine
DX: N39.0 Urinary tract infection, site not specified (principal); R10.12 Left upper quadrant pain; E87.29 Other acidosis; D64.9 Anemia, unspecified; E83.42 Hypomagnesemia; E87.6 Hypokalemia; E11.9 Type 2 diabetes mellitus without complications; Z86.73 Personal history of transient ischemic attack (TIA), and cerebral infarction without residual deficits; Z86.711 Personal history of pulmonary embolism; Z86.718 Personal history of other venous thrombosis and embolism; J45.909 Unspecified asthma, uncomplicated; J32.9 Chronic sinusitis, unspecified; J30.9 Allergic rhinitis, unspecified; G89.4 Chronic pain syndrome; G44.209 Tension-type headache, unspecified, not intractable; K21.9 Gastro-esophageal reflux disease without esophagitis; G90.50 Complex regional pain syndrome I, unspecified; Z79.899 Other long term (current) drug therapy; Z79.4 Long term (current) use of insulin
CPT/HCPCS: 36415; 71045; 74176; 80048; 80053; 80076; 81001; 82150; 82550; 82553; 83605; 83690; 83735; 84484; 85025; 87040; 87077; 87086; 87154; 93005; 94760; 96361; 96365; 96366; 96372; 96375; 96376; 99285; J0696; J1171; J1642; J1650; J1815; J2405; J3475

== ENCOUNTER 2024-08-12 17:04 | Emergency (ER) | payer OTHER ==
[~2024-08-12] VITALS: Ht 167.6 cm; Wt 76.0 kg
[~2024-08-12 17:04] MED LIST changes: +LORA-1041 PO
[2024-08-12 18:59] LABS: BASO % 0.3 % (0.0-1.0); EOS # 0.1 10^3/uL (0.0-0.5); HEMATOCRIT 36.6 % (36.0-47.0); HEMOGLOBIN 11.6 g/dl (12.0-15.5); LYMPH # 1.2 10^3/uL (1.5-5.0); LYMPH % 15.3 % (24.0-44.0); MEAN CORPUSCULAR HEMOGLOBIN 30.9 pg (27.0-33.0); MEAN CORPUSCULAR HGB CONC 31.7 g/dl (32.0-36.5); MEAN CORPUSCULAR VOLUME 97.6 fl (80.0-96.0); MONO # 0.6 10^3/uL (0.0-0.8); MONO % 7.6 % (2.0-8.0); NEUTROPHILS # 5.8 10^3/uL (1.5-8.5); NEUTROPHILS % 75.5 % (36.0-66.0); PLATELET COUNT, AUTOMATED 184 10^3/uL (150-450); RED BLOOD COUNT 3.75 10^6/uL (4.00-5.40); WHITE BLOOD COUNT 7.7 10^3/uL (4.0-10.0)
[2024-08-12 19:24] LABS: LIPASE 21 U/L (12-53)
[2024-08-12 19:26] LABS: AMYLASE 22 U/L (30-118)
[2024-08-12 19:34] LABS: ALBUMIN 2.9 G/DL (3.2-5.2); ALKALINE PHOSPHATASE 115 U/L (35-104); ALT/SGPT 30 U/L (7.0-40); AST/SGOT 22 U/L (<34); BILIRUBIN,DIRECT < 0.1 MG/DL (<0.4); BILIRUBIN,TOTAL 0.2 MG/DL (0.3-1.2); MAGNESIUM LEVEL 1.7 MG/DL (1.8-2.4); TOTAL PROTEIN 6.8 G/DL (5.7-8.2)
[2024-08-12] MEDS: HYDROMORPHONE HCL 0.5 MG/ 0.5 ML SYRINGE IV ONE (20:01)
[2024-08-12] MEDS ORDERED: MAGN400T2 PO (20:44)
[2024-08-12 21:05] VITALS: BP 120/58; TEMP 97.5; O2SAT 94
[2024-08-12] MEDS: SODIUM CHLORIDE 0.9% INJ 10 ML SYR IV ONE (21:07)
[2024-08-13] MEDS ORDERED: LEVEMIR FLEXPEN INJ ×2 (19:12)
[2024-08-13] MEDS ORDERED: MAGN400T2 PO (19:19)
== END 2024-08-12 21:23 | disposition home or self-care (01) ==
LOC: M ED 17:04 → EDBD 17:04 → M ED 21:23
DX: A09 Infectious gastroenteritis and colitis, unspecified (principal); E83.42 Hypomagnesemia; E10.9 Type 1 diabetes mellitus without complications; K21.9 Gastro-esophageal reflux disease without esophagitis; Z86.73 Personal history of transient ischemic attack (TIA), and cerebral infarction without residual deficits; Z86.711 Personal history of pulmonary embolism; Z86.718 Personal history of other venous thrombosis and embolism; D64.9 Anemia, unspecified; E78.5 Hyperlipidemia, unspecified; Z79.4 Long term (current) use of insulin; Z79.899 Other long term (current) drug therapy; Z91.041 Radiographic dye allergy status; Z91.040 Latex allergy status; Z91.018 Allergy to other foods; Z88.3 Allergy status to other anti-infective agents; Z88.0 Allergy status to penicillin; Z88.2 Allergy status to sulfonamides; Z88.1 Allergy status to other antibiotic agents; Z91.89 Other specified personal risk factors, not elsewhere classified; Z88.8 Allergy status to other drugs, medicaments and biological substances; Z88.5 Allergy status to narcotic agent; Z91.011 Allergy to milk products
CPT/HCPCS: 36415; 74176; 80047; 80076; 82150; 83605; 83690; 83735; 85025; 87507; 96374; 96375; 99284; J1171; J1642

== ENCOUNTER 2024-08-13 12:36 | Inpatient (IN) | payer OTHER ==
[~2024-08-13] VITALS: Ht 167.6 cm; Wt 76.4 kg
[~2024-08-13 12:36] MED LIST changes: +MAGN400T2 PO
[2024-08-13 14:41] LABS: BASO % 0.3 % (0.0-1.0); EOS # 0.1 10^3/uL (0.0-0.5); EOS % 0.8 % (0.0-3.0); HEMATOCRIT 35.3 % (36.0-47.0); HEMOGLOBIN 11.2 g/dl (12.0-15.5); LYMPH # 1.5 10^3/uL (1.5-5.0); LYMPH % 18.9 % (24.0-44.0); MEAN CORPUSCULAR HEMOGLOBIN 30.4 pg (27.0-33.0); MEAN CORPUSCULAR HGB CONC 31.7 g/dl (32.0-36.5); MEAN CORPUSCULAR VOLUME 95.9 fl (80.0-96.0); MONO # 0.5 10^3/uL (0.0-0.8); MONO % 6.8 % (2.0-8.0); NEUTROPHILS # 5.7 10^3/uL (1.5-8.5); NEUTROPHILS % 72.8 % (36.0-66.0); PLATELET COUNT, AUTOMATED 185 10^3/uL (150-450); RED BLOOD COUNT 3.68 10^6/uL (4.00-5.40); WHITE BLOOD COUNT 7.8 10^3/uL (4.0-10.0)
[2024-08-13 15:07] LABS: LIPASE 27 U/L (12-53)
[2024-08-13 15:11] LABS: ALBUMIN 2.8 G/DL (3.2-5.2); ALKALINE PHOSPHATASE 106 U/L (35-104); ALT/SGPT 27 U/L (7.0-40); AST/SGOT 19 U/L (<34); BILIRUBIN,DIRECT 0.1 MG/DL (<0.4); BILIRUBIN,TOTAL 0.3 MG/DL (0.3-1.2); BLOOD UREA NITROGEN 7 MG/DL (9-23); CALCIUM LEVEL 10.3 MG/DL (8.3-10.6); CARBON DIOXIDE LEVEL 34 MMOL/L (20-31); CHLORIDE LEVEL 98 MMOL/L (98-107); CREATININE FOR GFR 0.42 MG/DL (0.55-1.30); GLOMERULAR FILTRATION RATE > 90.0 (>45); GLUCOSE, FASTING 215 MG/DL (74-106); SODIUM LEVEL 139 MMOL/L (136-145)
[2024-08-13] MEDS: ACETAMINOPHEN *IV* 1,000 MG in IV 1 EA IV ONE (15:48)
[2024-08-13] MEDS: HYDROMORPHONE HCL 0.5 MG/ 0.5 ML SYRINGE IV ONE (16:48)
[2024-08-13] MEDS ORDERED: LEVEMIR FLEXPEN INJ ×2 (19:12)
[2024-08-13] MEDS ORDERED: MAGN400T2 PO (19:19)
[2024-08-13] MEDS ORDERED: HOME MED LIST COMPLETE! XX SCH (19:20)
[2024-08-13] MEDS ORDERED: MAALOX 30 ML SUSP *UDC PO PRN (20:05)
[2024-08-13 20:16] LABS: KETONE, URINE AUTO RFX NEGATIVE (NEGATIVE); NITRITE, URINE AUTO RFX NEGATIVE (NEGATIVE); RBC, URINE AUTO RFX 0 /HPF (0-3); SQUAM EPITHELIAL CELL UR AURFX 1 /HPF (0-6); YEAST LIKE CELL URINE AUTO RFX SMALL
[2024-08-13 20:17] LABS: LEUKOCYTE ESTERASE UR AUTO RFX 3+ (NEGATIVE); WBC, URINE AUTO RFX 79 /HPF (0-3)
[2024-08-13] MEDS: METHYLNALTREXONE BROMIDE 12MG/0.6ML VIAL (RELISTOR) SC ONE (20:18)
[2024-08-13] MEDS: ONDANSETRON 4MG 2ML VIAL IV PRN (21:00)
[2024-08-13] MEDS: ACETAMINOPHEN 325 MG TAB PO PRN (21:00)
[2024-08-13] MEDS: MORPHINE 2 MG/ML 1ML VIAL IV PRN (21:01)
[2024-08-13] MEDS: FAMOTIDINE 20MG/2ML VIAL IVP SCH (21:02)
[2024-08-13] MEDS: KETOROLAC 30 MG/ML 1ML VIAL IV PRN (21:17)
[2024-08-13 22:00] VITALS: BP 130/60; TEMP 97; O2SAT 92
[2024-08-13] MEDS: HYDROmorphone HCL 2MG/ML 1ML VIAL IV PRN (22:27)
[2024-08-13 22:50] VITALS: O2SAT 86
[2024-08-13 22:55] VITALS: O2SAT 96
[2024-08-13 23:00] VITALS: O2SAT 97
[2024-08-13 23:36] VITALS: BP 115/64; TEMP 96.8; O2SAT 97
[2024-08-14] VITALS (26 sets, daily range): BP systolic 121–139; BP diastolic 60–67; TEMP 96.7–97.8; O2SAT 90–97
[2024-08-14] MEDS: INSULIN LISPRO (NovoLOG) PER UNIT SC SCH
[2024-08-14] MEDS: LR 1,000 ML IV SCH (00:18)
[2024-08-14 05:43] LABS: HEMATOCRIT 33.8 % (36.0-47.0); HEMOGLOBIN 10.6 g/dl (12.0-15.5); MEAN CORPUSCULAR HEMOGLOBIN 30.3 pg (27.0-33.0); MEAN CORPUSCULAR HGB CONC 31.4 g/dl (32.0-36.5); MEAN CORPUSCULAR VOLUME 96.6 fl (80.0-96.0); PLATELET COUNT, AUTOMATED 175 10^3/uL (150-450); WHITE BLOOD COUNT 6.2 10^3/uL (4.0-10.0)
[2024-08-14 06:10] LABS: ALBUMIN 2.8 G/DL (3.2-5.2); ALKALINE PHOSPHATASE 101 U/L (35-104); ALT/SGPT 26 U/L (7.0-40); AST/SGOT 22 U/L (<34); BILIRUBIN,TOTAL 0.2 MG/DL (0.3-1.2); BLOOD UREA NITROGEN 7 MG/DL (9-23); CALCIUM LEVEL 9.8 MG/DL (8.3-10.6); CARBON DIOXIDE LEVEL 32 MMOL/L (20-31); CHLORIDE LEVEL 102 MMOL/L (98-107); CREATININE FOR GFR 0.49 MG/DL (0.55-1.30); GLOMERULAR FILTRATION RATE > 90.0 (>45); GLUCOSE, FASTING 111 MG/DL (74-106); SODIUM LEVEL 142 MMOL/L (136-145); TOTAL PROTEIN 6.3 G/DL (5.7-8.2)
[2024-08-14 06:26] LABS: INR 0.96; PROTHROMBIN TIME 13.1 SECONDS (12.5-14.5)
[2024-08-14] MEDS ORDERED: GLUCAGON INJ 1MG VIAL SC PRN (07:50)
[2024-08-14] MEDS ORDERED: GLUCOSE 4 GM CHEW PO PRN (07:50)
[2024-08-14] MEDS ORDERED: DEXTROSE 50% 50ML SYRINGE IV PRN (07:50)
[2024-08-14] MEDS ORDERED: ALBUTEROL 90 MCG/ACT 8GM HFA INHALER INH PRN (07:50)
[2024-08-14] MEDS: METOCLOPRAMIDE INJ 10MG/2ML VIAL IV SCH (09:34)
[2024-08-14] MEDS: LanTUS (INSULIN GLARGINE INJ) 1 UNITS/0.01 ML SC SCH (09:34)
[2024-08-14] MEDS: FLUTICASONE PROP 0.05% NASAL SPRAY 16 GM (FLONASE) NARES SCH (10:37)
[2024-08-14] MEDS: AMITRIPTYLINE 50 MG TAB PO SCH ×2 (10:37→20:27)
[2024-08-14] MEDS ORDERED: HYDROmorphone HCL 2MG/ML 1ML VIAL IV PRN ×2 (14:15→16:40)
[2024-08-14] MEDS ORDERED: KETOROLAC 30 MG/ML 1ML VIAL IV ONE (14:20)
[2024-08-15] VITALS (11 sets, daily range): BP systolic 124–152; BP diastolic 64–72; TEMP 97.2–98.3; O2SAT 91–96
[2024-08-15] MEDS: KETOROLAC 30 MG/ML 1ML VIAL IV PRN (06:39)
[2024-08-15 06:41] LABS: HEMATOCRIT 31.8 % (36.0-47.0); HEMOGLOBIN 9.9 g/dl (12.0-15.5); MEAN CORPUSCULAR HEMOGLOBIN 30.4 pg (27.0-33.0); MEAN CORPUSCULAR HGB CONC 31.1 g/dl (32.0-36.5); MEAN CORPUSCULAR VOLUME 97.5 fl (80.0-96.0); PLATELET COUNT, AUTOMATED 162 10^3/uL (150-450); RED BLOOD COUNT 3.26 10^6/uL (4.00-5.40); WHITE BLOOD COUNT 4.7 10^3/uL (4.0-10.0)
[2024-08-15 07:17] LABS: BLOOD UREA NITROGEN < 5 MG/DL (9-23); CARBON DIOXIDE LEVEL 32 MMOL/L (20-31); CHLORIDE LEVEL 105 MMOL/L (98-107); CREATININE FOR GFR 0.48 MG/DL (0.55-1.30); GLOMERULAR FILTRATION RATE > 90.0 (>45); GLUCOSE, FASTING 77 MG/DL (74-106); POTASSIUM SERUM 3.7 MMOL/L (3.5-5.1); SODIUM LEVEL 143 MMOL/L (136-145)
[2024-08-15] MEDS: ENOXAPARIN 40MG/0.4ML SYRINGE (J1650 PER 10MG) SC SCH (08:55)
== END 2024-08-15 12:49 | disposition home or self-care (01) | DRG 247 ==
LOC: M ED 12:36 → EDBD 12:36 → M ED INP 20:02 → M PCU 21:58
PROVIDERS: ADMIT Student in an Organized Health Care Education/Training Program; ATTEND Student in an Organized Health Care Education/Training Program
DX: K56.609 Unspecified intestinal obstruction, unspecified as to partial versus complete obstruction (principal); E83.42 Hypomagnesemia; E11.9 Type 2 diabetes mellitus without complications; E78.5 Hyperlipidemia, unspecified; J45.909 Unspecified asthma, uncomplicated; G89.4 Chronic pain syndrome; K59.00 Constipation, unspecified; K21.9 Gastro-esophageal reflux disease without esophagitis; Z79.899 Other long term (current) drug therapy; Z91.040 Latex allergy status; Z88.2 Allergy status to sulfonamides; Z91.048 Other nonmedicinal substance allergy status; Z88.1 Allergy status to other antibiotic agents; Z88.5 Allergy status to narcotic agent; Z91.018 Allergy to other foods; Z88.6 Allergy status to analgesic agent; Z88.8 Allergy status to other drugs, medicaments and biological substances; Z86.711 Personal history of pulmonary embolism; Z86.718 Personal history of other venous thrombosis and embolism; Z86.73 Personal history of transient ischemic attack (TIA), and cerebral infarction without residual deficits; Z93.2 Ileostomy status

== ENCOUNTER 2024-08-18 06:36 | Outpatient (CLI) | payer OTHER ==
[~2024-08-18] VITALS: Ht 167.6 cm; Wt 76.4 kg
[~2024-08-18 06:36] MED LIST changes: +LEVEMIR FLEXPEN INJ
[2024-08-18] MEDS ORDERED: SODIUM CHLORIDE 0.9% INJ 10 ML SYR IV PRN (06:45)
[2024-08-18 06:50] VITALS: BP 116/63; O2SAT 95
[2024-08-18] MEDS: MAG SULF 1GM/100ML (MAG RUN) X1 IV ONE (07:08)
[2024-08-18] MEDS: SODIUM CHLORIDE 0.9% INJ 10 ML SYR IV SCH (07:09)
[2024-08-18] MEDS: MAGNESIUM SULFATE 1 GM/100 ML IV SCH (08:34)
[2024-08-18 11:45] VITALS: BP 131/80; O2SAT 97
== END 2024-08-18 11:45 | disposition home or self-care (01) ==
LOC: M INFU 06:36
PROVIDERS: ATTEND Family Medicine
DX: E83.42 Hypomagnesemia (principal); E11.22 Type 2 diabetes mellitus with diabetic chronic kidney disease; Z91.040 Latex allergy status; Z91.041 Radiographic dye allergy status; Z88.0 Allergy status to penicillin; Z88.1 Allergy status to other antibiotic agents; Z88.2 Allergy status to sulfonamides; Z88.3 Allergy status to other anti-infective agents; Z88.5 Allergy status to narcotic agent; Z88.6 Allergy status to analgesic agent; Z88.8 Allergy status to other drugs, medicaments and biological substances; Z91.89 Other specified personal risk factors, not elsewhere classified
CPT/HCPCS: 36591; 83735; 96365; 96366; J1642; J3475

== ENCOUNTER 2024-08-22 11:22 | Emergency (ER) | payer OTHER ==
[~2024-08-22] VITALS: Ht 165.1 cm; Wt 76.3 kg
[~2024-08-22 11:22] MED LIST changes: +AMMO12CR4 TOP; -AMMO12CR7 TOP; +LIDO1ADH93 TD; -LIDO5DIS41 TD
[2024-08-22 11:37] VITALS: TEMP 97
[2024-08-22 12:38] LABS: BLOOD UREA NITROGEN 14 MG/DL (9-23); CARBON DIOXIDE LEVEL 25 MMOL/L (20-31); CHLORIDE LEVEL 102 MMOL/L (98-107); CREATININE FOR GFR 0.46 MG/DL (0.55-1.30); GLOMERULAR FILTRATION RATE > 90.0 (>45); GLUCOSE, FASTING 271 MG/DL (74-106); MAGNESIUM LEVEL 1.7 MG/DL (1.8-2.4); POTASSIUM SERUM 4.5 MMOL/L (3.5-5.1); SODIUM LEVEL 135 MMOL/L (136-145)
[2024-08-22] MEDS: MAG SULF 1GM/100ML (MAG RUN) 1 GM in IV 1 EA IV ONE (13:30)
[2024-08-22 14:26] VITALS: BP 113/74; O2SAT 98
== END 2024-08-22 14:39 | disposition home or self-care (01) ==
LOC: M ED 11:22 → EDBD 11:22 → M ED 14:39
DX: E83.42 Hypomagnesemia (principal); E11.9 Type 2 diabetes mellitus without complications; Z86.711 Personal history of pulmonary embolism; Z86.718 Personal history of other venous thrombosis and embolism; Z93.2 Ileostomy status; Z79.4 Long term (current) use of insulin; Z79.899 Other long term (current) drug therapy; Z88.3 Allergy status to other anti-infective agents; Z88.0 Allergy status to penicillin; Z88.2 Allergy status to sulfonamides; Z88.1 Allergy status to other antibiotic agents; Z88.8 Allergy status to other drugs, medicaments and biological substances; Z88.5 Allergy status to narcotic agent; Z91.02 Food additives allergy status; Z91.018 Allergy to other foods; Z91.89 Other specified personal risk factors, not elsewhere classified; Z91.041 Radiographic dye allergy status; Z91.040 Latex allergy status
CPT/HCPCS: 80048; 83735; 96374; 99284; J3475

== ENCOUNTER 2024-08-25 06:15 | Outpatient (CLI) | payer OTHER ==
[~2024-08-25] VITALS: Ht 167.6 cm; Wt 68.6 kg
[~2024-08-25 06:15] MED LIST changes: +SODIUM CHLORIDE 0.9% INJ 10 ML SYR IV PRN
[2024-08-25 06:50] VITALS: BP 169/93; O2SAT 95
[2024-08-25] MEDS: MAG SULF 1GM/100ML (MAG RUN) X1 IV ONE ×2 (07:03→07:55)
[2024-08-25] MEDS: SODIUM CHLORIDE 0.9% INJ 10 ML SYR IV SCH (07:04)
[2024-08-25 09:15] VITALS: BP 124/65; O2SAT 98
== END 2024-08-25 09:15 | disposition home or self-care (01) ==
LOC: M INFU 06:15
PROVIDERS: ATTEND Family Medicine
DX: E83.42 Hypomagnesemia (principal); E11.22 Type 2 diabetes mellitus with diabetic chronic kidney disease; Z88.3 Allergy status to other anti-infective agents; Z91.041 Radiographic dye allergy status; Z88.0 Allergy status to penicillin; Z88.2 Allergy status to sulfonamides; Z91.89 Other specified personal risk factors, not elsewhere classified; Z88.8 Allergy status to other drugs, medicaments and biological substances; Z91.040 Latex allergy status; Z88.1 Allergy status to other antibiotic agents; Z88.5 Allergy status to narcotic agent
CPT/HCPCS: 36591; 83735; 96365; 96366; J1642; J3475

== ENCOUNTER 2024-09-01 06:29 | Outpatient (CLI) | payer OTHER ==
[~2024-09-01] VITALS: Ht 165.1 cm; Wt 68.6 kg
[~2024-09-01 06:29] MED LIST changes: -SODIUM CHLORIDE 0.9% INJ 10 ML SYR IV PRN
[2024-09-01 06:50] VITALS: BP 123/65; O2SAT 96
[2024-09-01] MEDS ORDERED: SODIUM CHLORIDE 0.9% INJ 10 ML SYR IV PRN (07:00)
[2024-09-01] MEDS: SODIUM CHLORIDE 0.9% INJ 10 ML SYR IV SCH (07:02)
[2024-09-01] MEDS: MAG SULF 1GM/100ML (MAG RUN) X1 IV ONE ×2 (07:04→08:38)
[2024-09-01 09:43] VITALS: BP 130/76; O2SAT 97
== END 2024-09-01 09:45 | disposition home or self-care (01) ==
LOC: M INFU 06:29
PROVIDERS: ATTEND Family Medicine
DX: E83.42 Hypomagnesemia (principal); E11.22 Type 2 diabetes mellitus with diabetic chronic kidney disease; Z91.041 Radiographic dye allergy status; Z88.3 Allergy status to other anti-infective agents; Z88.0 Allergy status to penicillin; Z88.2 Allergy status to sulfonamides; Z91.89 Other specified personal risk factors, not elsewhere classified; Z88.6 Allergy status to analgesic agent; Z88.8 Allergy status to other drugs, medicaments and biological substances; Z91.040 Latex allergy status; Z88.1 Allergy status to other antibiotic agents; Z88.5 Allergy status to narcotic agent
CPT/HCPCS: 36591; 83735; 96365; 96366; J1642; J3475

== ENCOUNTER 2024-10-13 06:11 | Outpatient (CLI) | payer OTHER ==
[2024-10-13 06:45] VITALS: BP 141/72; O2SAT 96
[2024-10-13] MEDS: MAG SULF 1GM/100ML (MAG RUN) X1 IV ONE (07:06)
[2024-10-13] MEDS: HEPARIN LOCK FLUSH 100 UNITS/ML 3 ML SYRINGE IV PRN (08:11)
[2024-10-13] MEDS: MAGNESIUM SULFATE 1 GM/100 ML IV SCH (08:11)
[2024-10-13] MEDS: SODIUM CHLORIDE 0.9% INJ 10 ML SYR IV PRN (08:11)
[2024-10-13 11:30] VITALS: BP 132/68; O2SAT 96
[2024-10-23] MEDS ORDERED: SENN-186 PO (13:44)
[2024-10-23] MEDS ORDERED: POLY510P14 PO (13:44)
== END 2024-10-13 11:30 | disposition home or self-care (01) ==
LOC: M INFU 06:11
PROVIDERS: ATTEND Family Medicine
DX: E83.42 Hypomagnesemia (principal); Z91.040 Latex allergy status; Z88.0 Allergy status to penicillin; Z88.2 Allergy status to sulfonamides; Z91.89 Other specified personal risk factors, not elsewhere classified; Z88.8 Allergy status to other drugs, medicaments and biological substances; Z88.1 Allergy status to other antibiotic agents; Z88.5 Allergy status to narcotic agent; Z88.3 Allergy status to other anti-infective agents; Z91.041 Radiographic dye allergy status
CPT/HCPCS: 36591; 83735; 96365; 96366; J1642; J3475

== ENCOUNTER → 2024-10-18 | Outpatient (REF) | payer OTHER | LOC: M SFHCPLAZ 13:59 | PROVIDERS: ATTEND Student in an Organized Health Care Education/Training Program | DX: R09.81 Nasal congestion (principal) ==

== ENCOUNTER 2024-10-27 06:10 | Outpatient (CLI) | payer OTHER ==
[~2024-10-27] VITALS: Ht 165.1 cm; Wt 80.9 kg
[2024-10-27] MEDS: MAG SULF 1GM/100ML (MAG RUN) X1 IV ONE (07:24)
[2024-10-27 07:38] VITALS: BP 154/77; O2SAT 96
[2024-10-27] MEDS: MAGNESIUM SULFATE 1 GM/100 ML IV SCH (08:28)
[2024-10-27] MEDS: HEPARIN LOCK FLUSH 100 UNITS/ML 3 ML SYRINGE IV PRN (08:28)
[2024-10-27] MEDS: SODIUM CHLORIDE 0.9% INJ 10 ML SYR IV PRN (08:29)
[2024-10-27 11:40] VITALS: BP 126/66; O2SAT 95
== END 2024-10-27 11:45 | disposition home or self-care (01) ==
LOC: M INFU 06:10
PROVIDERS: ATTEND Family Medicine
DX: E83.42 Hypomagnesemia (principal); Z88.0 Allergy status to penicillin; Z88.2 Allergy status to sulfonamides; Z88.6 Allergy status to analgesic agent; Z88.8 Allergy status to other drugs, medicaments and biological substances; Z91.018 Allergy to other foods; Z91.041 Radiographic dye allergy status; Z91.011 Allergy to milk products
CPT/HCPCS: 36591; 83735; 96365; 96366; 96375; J1642; J3475

== ENCOUNTER 2024-10-30 19:21 | Inpatient (IN) | payer OTHER ==
[~2024-10-30] VITALS: Ht 167.6 cm; Wt 76.0 kg
[2024-10-30 20:23] LABS: BASO # 0.0 10^3/uL (0.0-0.2); BASO % 0.3 % (0.0-1.0); EOS # 0.0 10^3/uL (0.0-0.5); EOS % 0.2 % (0.0-3.0); LYMPH # 1.4 10^3/uL (1.5-5.0); LYMPH % 15.9 % (24.0-44.0); MONO # 0.8 10^3/uL (0.0-0.8); MONO % 9.2 % (2.0-8.0); NEUTROPHILS # 6.4 10^3/uL (1.5-8.5); NEUTROPHILS % 73.8 % (36.0-66.0); PLATELET COUNT, AUTOMATED 207 10^3/uL (150-450)
[2024-10-30] MEDS: PANTOPRAZOLE 40MG VIAL IV ONE (20:47)
[2024-10-30] MEDS: ONDANSETRON 4MG 2ML VIAL IV ONE (20:47)
[2024-10-30] MEDS: FAMOTIDINE 20 MG/2 ML VIAL IVP ONE (20:47)
[2024-10-30] MEDS: HYDROMORPHONE HCL 0.5 MG/0.5 ML SYRINGE IV STA ×2 (20:49→23:44)
[2024-10-30] MEDS: NS (Normal Saline) 0.9% 1,000 ML IV ONE (20:57)
[2024-10-30 21:29] LABS: INR 0.9
[2024-10-30 22:20] LABS: ALT/SGPT 21 U/L (7.0-40); AST/SGOT 17 U/L (<34); CALCIUM LEVEL 10.3 MG/DL (8.3-10.6); CARBON DIOXIDE LEVEL 27 MMOL/L (20-31); CHLORIDE LEVEL 99 MMOL/L (98-107); CREATININE FOR GFR 0.50 MG/DL (0.55-1.30); GLOMERULAR FILTRATION RATE > 90.0 (>45); MAGNESIUM LEVEL 1.8 MG/DL (1.8-2.4); POTASSIUM SERUM 4.2 MMOL/L (3.5-5.1); SODIUM LEVEL 139 MMOL/L (136-145)
[2024-10-31] VITALS (9 sets, daily range): BP systolic 120–146; BP diastolic 62–76; TEMP 97–98.2; O2SAT 95–98
[2024-10-31] MEDS: ONDANSETRON 4MG 2ML VIAL IV ONE (00:42)
[2024-10-31] MEDS ORDERED: NALOXONE INJ 0.4 MG/1 ML VIAL IV PRN (01:40)
[2024-10-31] MEDS ORDERED: AMIT-257 PO (02:23)
[2024-10-31] MEDS ORDERED: ONDA1INJ2 SC (02:52)
[2024-10-31] MEDS ORDERED: DOXY100C3 PO (03:24)
[2024-10-31] MEDS ORDERED: LANTINJ4 SC (03:24)
[2024-10-31] MEDS ORDERED: HOME MED LIST COMPLETE! XX SCH (03:40)
[2024-10-31 04:14] LABS: PLATELET COUNT, AUTOMATED 201 10^3/uL (150-450)
[2024-10-31] MEDS: LR 1,000 ML IV SCH (04:50)
[2024-10-31] MEDS: ACETAMINOPHEN *IV* 1,000 MG in IV 1 EA IV SCH (04:51)
[2024-10-31 04:55] LABS: ALT/SGPT 30 U/L (7.0-40); AST/SGOT 33 U/L (<34); CALCIUM LEVEL 9.8 MG/DL (8.3-10.6); CARBON DIOXIDE LEVEL 23 MMOL/L (20-31); CHLORIDE LEVEL 106 MMOL/L (98-107); CREATININE FOR GFR 0.45 MG/DL (0.55-1.30); GLOMERULAR FILTRATION RATE > 90.0 (>45); MAGNESIUM LEVEL 1.6 MG/DL (1.8-2.4); POTASSIUM SERUM 4.5 MMOL/L (3.5-5.1); SODIUM LEVEL 139 MMOL/L (136-145)
[2024-10-31] MEDS ORDERED: DEXTROSE 50% 50 ML SYRINGE IV PRN (05:10)
[2024-10-31] MEDS ORDERED: GLUCAGON INJ 1 MG VIAL SC PRN (05:10)
[2024-10-31] MEDS ORDERED: GLUCOSE 4 GM CHEW PO PRN (05:10)
[2024-10-31] MEDS: INSULIN LISPRO (NovoLOG) PER UNIT SC SCH (06:47)
[2024-10-31] MEDS: HYDROMORPHONE HCL 0.5 MG/0.5 ML SYRINGE IV PRN ×2 (06:48→13:21)
[2024-10-31] MEDS: MAG SULF 1GM/100ML (MAG RUN) 1 GM in IV 1 EA IV ONE (06:48)
[2024-10-31] MEDS: ONDANSETRON 4MG 2ML VIAL IV PRN (19:51)
[2024-11-01] VITALS (7 sets, daily range): BP systolic 131–147; BP diastolic 63–72; TEMP 96.8–97.5; O2SAT 94–100
[2024-11-01 06:04] LABS: PLATELET COUNT, AUTOMATED 158 10^3/uL (150-450)
[2024-11-01 06:37] LABS: CALCIUM LEVEL 8.8 MG/DL (8.3-10.6); CARBON DIOXIDE LEVEL 26 MMOL/L (20-31); CHLORIDE LEVEL 104 MMOL/L (98-107); CREATININE FOR GFR 0.42 MG/DL (0.55-1.30); GLOMERULAR FILTRATION RATE > 90.0 (>45); POTASSIUM SERUM 4.1 MMOL/L (3.5-5.1); SODIUM LEVEL 140 MMOL/L (136-145)
[2024-11-01] MEDS: BISACODYL 10 MG SUPP XX SCH (12:52)
[2024-11-01] MEDS: SIMETHICONE 80MG CHEW TAB PO SCH (17:28)
[2024-11-01] MEDS: LACTULOSE 20 GM/30 ML SYRUP UDC PO SCH (20:09)
[2024-11-01] MEDS: MIRALAX *UNIT DOSE* 17 GM PACKET PO SCH (20:09)
[2024-11-02] VITALS (7 sets, daily range): BP systolic 144–157; BP diastolic 73–81; TEMP 97.3–98.7; O2SAT 94–98
[2024-11-02 06:16] LABS: PLATELET COUNT, AUTOMATED 190 10^3/uL (150-450)
[2024-11-02 06:36] LABS: CALCIUM LEVEL 9.2 MG/DL (8.3-10.6); CARBON DIOXIDE LEVEL 31 MMOL/L (20-31); CHLORIDE LEVEL 100 MMOL/L (98-107); CREATININE FOR GFR 0.41 MG/DL (0.55-1.30); GLOMERULAR FILTRATION RATE > 90.0 (>45); POTASSIUM SERUM 4.4 MMOL/L (3.5-5.1); SODIUM LEVEL 139 MMOL/L (136-145)
[2024-11-02] MEDS ORDERED: ALBUTEROL 90 MCG/ACT 8 GM HFA INHALER INH PRN (21:25)
[2024-11-03 03:16] VITALS: BP 155/74; TEMP 97.3; O2SAT 98
[2024-11-03 06:07] LABS: PLATELET COUNT, AUTOMATED 190 10^3/uL (150-450)
[2024-11-03 06:33] LABS: CALCIUM LEVEL 9.6 MG/DL (8.3-10.6); CARBON DIOXIDE LEVEL 29 MMOL/L (20-31); CHLORIDE LEVEL 98 MMOL/L (98-107); CREATININE FOR GFR 0.36 MG/DL (0.55-1.30); GLOMERULAR FILTRATION RATE > 90.0 (>45); POTASSIUM SERUM 3.7 MMOL/L (3.5-5.1); SODIUM LEVEL 138 MMOL/L (136-145)
[2024-11-03] MEDS: FLUTICASONE PROPIONATE 0.05% NASAL SPRAY 16 GM NARES SCH (07:50)
[2024-11-03 08:00] VITALS: BP 154/74; TEMP 97.5; O2SAT 98
[2024-11-03] MEDS ORDERED: HEPARIN LOCK FLUSH 100 UNITS/ML 3 ML SYRINGE IV SCH (09:00)
[2024-11-03] MEDS ORDERED: SODIUM CHLORIDE 0.9% INJ 10 ML SYR IV SCH (09:00)
[2024-11-03 12:00] VITALS: BP 156/78; TEMP 97.5; O2SAT 98
[2024-11-03] MEDS ORDERED: HEPARIN LOCK FLUSH 100 UNITS/ML 3 ML SYRINGE IV PRN (14:20)
[2024-11-03] MEDS ORDERED: SODIUM CHLORIDE 0.9% INJ 10 ML SYR IV PRN (14:20)
== END 2024-11-03 14:35 | disposition home or self-care (01) | DRG 247 ==
LOC: EDBD 19:21 → M ED 19:21 → M ED INP 10-31 01:37 → M MSPAV 10-31 02:27
PROVIDERS: ADMIT Family Medicine; ATTEND Family Medicine
DX: K56.51 Intestinal adhesions [bands], with partial obstruction (principal); Z86.73 Personal history of transient ischemic attack (TIA), and cerebral infarction without residual deficits; J45.909 Unspecified asthma, uncomplicated; K21.9 Gastro-esophageal reflux disease without esophagitis; E11.9 Type 2 diabetes mellitus without complications; R51.9 Headache, unspecified; G89.29 Other chronic pain; Z91.040 Latex allergy status; Z88.2 Allergy status to sulfonamides; Z88.0 Allergy status to penicillin; Z88.5 Allergy status to narcotic agent; Z91.018 Allergy to other foods; Z88.6 Allergy status to analgesic agent; Z88.8 Allergy status to other drugs, medicaments and biological substances; Z79.899 Other long term (current) drug therapy; Z79.4 Long term (current) use of insulin; Z86.718 Personal history of other venous thrombosis and embolism; Z86.711 Personal history of pulmonary embolism; Z93.3 Colostomy status; J32.9 Chronic sinusitis, unspecified; G90.50 Complex regional pain syndrome I, unspecified

== ENCOUNTER 2024-11-06 13:39 | Inpatient (IN) | payer OTHER ==
[~2024-11-06] VITALS: Ht 167.6 cm; Wt 68.6 kg
[~2024-11-06 13:39] MED LIST changes: +AMIT-257 PO; +LANTINJ4 SC; +ONDA1INJ2 SC
[2024-11-06] MEDS: HYDROMORPHONE HCL 0.5 MG/0.5 ML SYRINGE IV PRN (14:30)
[2024-11-06] MEDS: NS (Normal Saline) 0.9% 1,000 ML IV SCH (14:30)
[2024-11-06] MEDS: ONDANSETRON 4MG 2ML VIAL IV ONE (14:30)
[2024-11-06 14:37] LABS: PLATELET COUNT, AUTOMATED 242 10^3/uL (150-450)
[2024-11-06 14:49] LABS: INR 0.82
[2024-11-06 15:04] LABS: ALT/SGPT 23 U/L (7.0-40); AST/SGOT 18 U/L (<34); CALCIUM LEVEL 10.5 MG/DL (8.3-10.6); CARBON DIOXIDE LEVEL 25 MMOL/L (20-31); CHLORIDE LEVEL 99 MMOL/L (98-107); CREATININE FOR GFR 0.52 MG/DL (0.55-1.30); GLOMERULAR FILTRATION RATE > 90.0 (>45); POTASSIUM SERUM 4.2 MMOL/L (3.5-5.1); SODIUM LEVEL 137 MMOL/L (136-145)
[2024-11-06 15:21] LABS: ATYPICAL LYMPH 2 % (0-5); BASOPHILS 1 % (0-1); EOSINOPHILS 2 % (0-3); LYMPHOCYTES 12 % (16-44); MONOCYTES 5 % (0-5); NEUTROPHILS 71 % (28-66); PLATELET ESTIMATE NORMAL (NORMAL)
[2024-11-06] MEDS: READI-CAT 2 PO SCH (16:22)
[2024-11-06 19:13] LABS: MAGNESIUM LEVEL 1.4 MG/DL (1.8-2.4)
[2024-11-06] MEDS: [UNRECOGNIZED DRUG - OTHER] IV ONE (19:34)
[2024-11-06] MEDS: NS 0.9% IV ONE (19:34)
[2024-11-06] MEDS: LR 1,000 ML IV SCH (21:28)
[2024-11-06] MEDS ORDERED: POLY17PO18 PO (21:29)
[2024-11-06] MEDS ORDERED: HOME MED LIST COMPLETE! XX SCH (21:30)
[2024-11-06] MEDS ORDERED: GLUCOSE 4 GM CHEW PO PRN (22:25)
[2024-11-06] MEDS ORDERED: GLUCAGON INJ 1 MG VIAL SC PRN (22:25)
[2024-11-06] MEDS ORDERED: DEXTROSE 50% 50 ML SYRINGE IV PRN (22:25)
[2024-11-06] MEDS ORDERED: ALBUTEROL 90 MCG/ACT 8 GM HFA INHALER INH PRN (22:25)
[2024-11-06] MEDS ORDERED: LACTULOSE 20 GM/30 ML SYRUP UDC PO PRN (22:25)
[2024-11-06] MEDS: cefTRIAXone SOD 1 GM in DEXTROSE 5% (D5W) ADV/MINI-BAG 50 ML IV SCH (23:36)
[2024-11-06] MEDS: METOCLOPRAMIDE 10 MG TAB PO SCH (23:36)
[2024-11-06] MEDS: ONDANSETRON 4MG ORAL DISINTEGRATING TAB PO ONE (23:36)
[2024-11-07] MEDS: MAG SULF 1GM/100ML (MAG RUN) 1 GM in IV 1 EA IV ONE (00:25)
[2024-11-07] MEDS: SENNA 8.6 MG TAB PO SCH (01:00)
[2024-11-07] MEDS: ACETAMINOPHEN 325 MG TAB PO PRN (01:00)
[2024-11-07] MEDS: FAMOTIDINE 20 MG TAB PO SCH (01:02)
[2024-11-07] MEDS: SUCRALFATE 1 GM TAB PO SCH (01:02)
[2024-11-07] MEDS: DICYCLOMINE 10 MG CAP PO SCH (01:02)
[2024-11-07] MEDS: LanTUS (INSULIN GLARGINE INJ) 1 UNITS/0.01 ML SC SCH (01:14)
[2024-11-07] MEDS: AMITRIPTYLINE 50MG TAB PO SCH ×2 (01:15→12:20)
[2024-11-07 01:33] LABS: VENOUS BASE EXCESS -3.9 (-2.0-2.0); VENOUS HCO3 20.6 MMOL/L (23.0-27.0); VENOUS O2 SATURATION 81.7 % (60.0-80.0); VENOUS PARTIAL PRESSURE CO2 35.6 mmHg (38.0-50.0); VENOUS PARTIAL PRESSURE O2 47.7 mmHg (30.0-50.0); VENOUS PH 7.380 UNITS (7.330-7.430); VENOUS STANDARD HCO3 20.9 MMOL/L; VENOUS TOTAL CO2 21.7 MMOL/L (24.0-28.0)
[2024-11-07 01:39] LABS: PLATELET COUNT, AUTOMATED 171 10^3/uL (150-450)
[2024-11-07 01:46] LABS: APPEARANCE, URINE HAZY (CLEAR); BACTERIA, URINE AUTO 1+ (NEGATIVE); BILIRUBIN, URINE AUTO NEGATIVE (NEGATIVE); BLOOD, URINE BLOOD 3+ (NEGATIVE); GLUCOSE, URINE (UA) AUTO 3+ mg/dL (NEGATIVE); KETONE, URINE AUTO NEGATIVE (NEGATIVE); LEUKOCYTE ESTERASE, URINE AUTO 2+ (NEGATIVE); MUCUS, URINE SMALL (NEGATIVE); NITRITE, URINE AUTO NEGATIVE (NEGATIVE); PROTEIN, URINE AUTO 1+ mg/dL (NEGATIVE); RBC, URINE AUTO 79 /HPF (0-3); SPECIFIC GRAVITY URINE AUTO 1.017 (1.002-1.035); SQUAMOUS EPITHELIAL CELL UR AU 3 /HPF (0-6); UROBILINOGEN, URINE AUTO 0.2 mg/dL (0.0-2.0); WBC, URINE AUTO 40 /HPF (0-3)
[2024-11-07 02:14] LABS: CALCIUM LEVEL 8.9 MG/DL (8.3-10.6); CARBON DIOXIDE LEVEL 23 MMOL/L (20-31); CHLORIDE LEVEL 98 MMOL/L (98-107); CREATININE FOR GFR 0.60 MG/DL (0.55-1.30); GLOMERULAR FILTRATION RATE > 90.0 (>45); POTASSIUM SERUM 4.4 MMOL/L (3.5-5.1); SODIUM LEVEL 133 MMOL/L (136-145)
[2024-11-07 05:59] LABS: PLATELET COUNT, AUTOMATED 184 10^3/uL (150-450)
[2024-11-07 06:22] LABS: CALCIUM LEVEL 9.3 MG/DL (8.3-10.6); CARBON DIOXIDE LEVEL 25 MMOL/L (20-31); CHLORIDE LEVEL 100 MMOL/L (98-107); CREATININE FOR GFR 0.51 MG/DL (0.55-1.30); GLOMERULAR FILTRATION RATE > 90.0 (>45); POTASSIUM SERUM 4.0 MMOL/L (3.5-5.1); SODIUM LEVEL 136 MMOL/L (136-145)
[2024-11-07] MEDS: SIMETHICONE 80MG CHEW TAB PO SCH (09:53)
[2024-11-07] MEDS: LORATADINE 10 MG TAB PO SCH (09:54)
[2024-11-07] MEDS: MIRALAX *UNIT DOSE* 17 GM PACKET PO PRN (09:54)
[2024-11-07] MEDS: MAGNESIUM OXIDE 400 MG TAB PO SCH (09:54)
[2024-11-07] MEDS: INSULIN LISPRO (NovoLOG) PER UNIT SC SCH (09:56)
[2024-11-07] MEDS: HEPARIN SOD 5000 UNITS/ML 1 ML VIAL/SYRINGE SQ SCH (09:58)
[2024-11-07] MEDS: NYSTATIN 100,000 UNITS/GM TOPICAL PWD 15 GM TOP SCH (12:20)
[2024-11-07] MEDS: FLUTICASONE PROPIONATE 0.05% NASAL SPRAY 16 GM NARES SCH (12:20)
[2024-11-07] MEDS: KCL 10MEQ IN D5/0.45NS 1000ML 1,000 ML IV SCH (13:07)
[2024-11-07 16:20] VITALS: BP 126/66; TEMP 97.9; O2SAT 97
[2024-11-07] MEDS ORDERED: HYDROMORPHONE HCL 0.5 MG/0.5 ML SYRINGE IV PRN (17:35)
[2024-11-07] MEDS: HYDROMORPHONE HCL 0.5 MG/0.5 ML SYRINGE IV PRN (18:28)
[2024-11-07] MEDS ORDERED: INSULIN LISPRO (NovoLOG) PER UNIT SC SCH (21:00)
[2024-11-07] MEDS ORDERED: LanTUS (INSULIN GLARGINE INJ) 1 UNITS/0.01 ML SC SCH (21:00)
[2024-11-07 21:12] VITALS: BP 126/67; TEMP 97.7; O2SAT 87
[2024-11-07] MEDS: ATORVASTATIN 20 MG TAB PO SCH (22:25)
[2024-11-08 00:21] VITALS: BP 127/68; TEMP 97.5; O2SAT 96
[2024-11-08 03:50] VITALS: BP 133/71; TEMP 97.2; O2SAT 97
[2024-11-08 07:08] LABS: PLATELET COUNT, AUTOMATED 171 10^3/uL (150-450)
[2024-11-08 07:40] LABS: CALCIUM LEVEL 9.1 MG/DL (8.3-10.6); CARBON DIOXIDE LEVEL 27 MMOL/L (20-31); CHLORIDE LEVEL 105 MMOL/L (98-107); CREATININE FOR GFR 0.49 MG/DL (0.55-1.30); GLOMERULAR FILTRATION RATE > 90.0 (>45); POTASSIUM SERUM 4.1 MMOL/L (3.5-5.1); SODIUM LEVEL 140 MMOL/L (136-145)
[2024-11-08 08:00] VITALS: BP 130/72; TEMP 97.2; O2SAT 96
[2024-11-08 12:00] VITALS: BP 129/72; TEMP 97.5; O2SAT 97
[2024-11-08] MEDS: MIRALAX *UNIT DOSE* 17 GM PACKET PO SCH (13:16)
[2024-11-08] MEDS: LACTULOSE 20 GM/30 ML SYRUP UDC PO SCH (13:16)
[2024-11-08] MEDS: ONDANSETRON 4MG 2ML VIAL IV PRN (15:57)
[2024-11-08 19:39] VITALS: BP 124/66; TEMP 97.7; O2SAT 94
[2024-11-09 04:18] VITALS: BP 116/66; TEMP 97.7; O2SAT 96
[2024-11-09 06:00] LABS: PLATELET COUNT, AUTOMATED 165 10^3/uL (150-450)
[2024-11-09 06:40] LABS: CALCIUM LEVEL 8.7 MG/DL (8.3-10.6); CARBON DIOXIDE LEVEL 27 MMOL/L (20-31); CHLORIDE LEVEL 102 MMOL/L (98-107); CREATININE FOR GFR 0.47 MG/DL (0.55-1.30); GLOMERULAR FILTRATION RATE > 90.0 (>45); POTASSIUM SERUM 4.3 MMOL/L (3.5-5.1); SODIUM LEVEL 138 MMOL/L (136-145)
[2024-11-10] MEDS ORDERED: RESM80TA PO (07:31)
== END 2024-11-09 11:46 | disposition home or self-care (01) | DRG 247 ==
LOC: M ED 13:39 → UNDOADMIN 11-07 10:29 → M ED INP 11-07 10:29 → M MSPAV 11-07 16:13
PROVIDERS: ADMIT Family Medicine; ATTEND Student in an Organized Health Care Education/Training Program
DX: K56.609 Unspecified intestinal obstruction, unspecified as to partial versus complete obstruction (principal); E87.20 Acidosis, unspecified; E83.42 Hypomagnesemia; J44.9 Chronic obstructive pulmonary disease, unspecified; E11.9 Type 2 diabetes mellitus without complications; N39.0 Urinary tract infection, site not specified; F39 Unspecified mood [affective] disorder; K21.9 Gastro-esophageal reflux disease without esophagitis; E78.5 Hyperlipidemia, unspecified; Z86.711 Personal history of pulmonary embolism; Z86.718 Personal history of other venous thrombosis and embolism; Z79.4 Long term (current) use of insulin; Z79.51 Long term (current) use of inhaled steroids; Z91.040 Latex allergy status; Z88.0 Allergy status to penicillin; Z88.1 Allergy status to other antibiotic agents; Z88.2 Allergy status to sulfonamides; Z88.5 Allergy status to narcotic agent; Z88.6 Allergy status to analgesic agent; Z88.8 Allergy status to other drugs, medicaments and biological substances; Z86.73 Personal history of transient ischemic attack (TIA), and cerebral infarction without residual deficits; J45.909 Unspecified asthma, uncomplicated; G89.4 Chronic pain syndrome; Z90.79 Acquired absence of other genital organ(s); Z90.49 Acquired absence of other specified parts of digestive tract; Z93.2 Ileostomy status

== ENCOUNTER 2024-11-10 07:00 | Outpatient (CLI) | payer OTHER ==
[~2024-11-10] VITALS: Ht 167.6 cm; Wt 68.6 kg
[2024-11-10 07:00] VITALS: BP 149/78; O2SAT 97
[2024-11-10] MEDS: MAG SULF 1GM/100ML (MAG RUN) X1 IV ONE ×2 (07:25→08:16)
[2024-11-10] MEDS ORDERED: RESM80TA PO (07:31)
[2024-11-10] MEDS: SODIUM CHLORIDE 0.9% INJ 10 ML SYR IV PRN (09:26)
[2024-11-10] MEDS: HEPARIN LOCK FLUSH 100 UNITS/ML 3 ML SYRINGE IV PRN (09:26)
[2024-11-10 09:30] VITALS: BP 147/70; O2SAT 96
== END 2024-11-10 09:00 ==
LOC: M INFU 07:00
PROVIDERS: ATTEND Family Medicine
DX: E83.42 Hypomagnesemia (principal); Z91.040 Latex allergy status; Z88.0 Allergy status to penicillin; Z88.2 Allergy status to sulfonamides; Z91.89 Other specified personal risk factors, not elsewhere classified; Z88.8 Allergy status to other drugs, medicaments and biological substances; Z88.1 Allergy status to other antibiotic agents; Z88.5 Allergy status to narcotic agent; Z88.3 Allergy status to other anti-infective agents; Z91.041 Radiographic dye allergy status

== ENCOUNTER 2024-11-10 17:00 | Emergency (ER) | payer OTHER ==
[~2024-11-10] VITALS: Ht 167.6 cm; Wt 75.6 kg
[~2024-11-10 17:00] MED LIST changes: +RESM80TA PO
[2024-11-10] MEDS: NS 500 ML IV ONE (17:40)
[2024-11-10 18:58] LABS: BASO # 0.0 10^3/uL (0.0-0.2); BASO % 0.2 % (0.0-1.0); EOS # 0.1 10^3/uL (0.0-0.5); EOS % 0.9 % (0.0-3.0); LYMPH # 0.9 10^3/uL (1.5-5.0); LYMPH % 16.6 % (24.0-44.0); MONO # 0.5 10^3/uL (0.0-0.8); MONO % 9.2 % (2.0-8.0); NEUTROPHILS # 4.0 10^3/uL (1.5-8.5); NEUTROPHILS % 72.7 % (36.0-66.0); PLATELET COUNT, AUTOMATED 151 10^3/uL (150-450)
[2024-11-10 19:10] LABS: CK-MB VALUE MASS 1.5 NG/ML (<3.6)
[2024-11-10 19:12] LABS: CPK CREATINE PHOSPHOKINASE 34 U/L (34-145); MB/CK RELATIVE INDEX 4.41 (< OR =4)
[2024-11-10 19:14] LABS: KETONE, URINE AUTO RFX TRACE mg/dL (NEGATIVE); NITRITE, URINE AUTO RFX NEGATIVE (NEGATIVE); RBC, URINE AUTO RFX 3 /HPF (0-3); SQUAM EPITHELIAL CELL UR AURFX 0 /HPF (0-6); YEAST LIKE CELL URINE AUTO RFX MODERATE
[2024-11-10 19:15] LABS: ALT/SGPT 26 U/L (7.0-40); AST/SGOT 17 U/L (<34); CALCIUM LEVEL 9.2 MG/DL (8.3-10.6); CARBON DIOXIDE LEVEL 26 MMOL/L (20-31); CHLORIDE LEVEL 98 MMOL/L (98-107); CREATININE FOR GFR 0.42 MG/DL (0.55-1.30); GLOMERULAR FILTRATION RATE > 90.0 (>45); POTASSIUM SERUM 4.1 MMOL/L (3.5-5.1); SODIUM LEVEL 137 MMOL/L (136-145)
[2024-11-10 19:17] LABS: LEUKOCYTE ESTERASE UR AUTO RFX 1+ (NEGATIVE); WBC, URINE AUTO RFX 25 /HPF (0-3)
[2024-11-10] MEDS: HYDROMORPHONE HCL 0.5 MG/0.5 ML SYRINGE IV PRN (20:24)
[2024-11-10] MEDS ORDERED: ALBUTEROL 90 MCG/ACT 8 GM HFA INHALER INH PRN (20:25)
[2024-11-10] MEDS: READI-CAT 2 PO SCH (20:39)
[2024-11-10] MEDS: ONDANSETRON 4MG 2ML VIAL IV ONE (20:39)
[2024-11-11 01:45] VITALS: O2SAT 97
[2024-11-11] MEDS: HEPARIN LOCK FLUSH 100 UNITS/ML 3 ML SYRINGE IV PRN (01:55)
[2024-11-11] MEDS: SODIUM CHLORIDE 0.9% INJ 10 ML SYR IV PRN (01:55)
[2024-11-11 01:58] VITALS: BP 155/71; TEMP 96.9
== END 2024-11-11 02:10 | disposition home or self-care (01) ==
LOC: M ED 17:00 → EDBD 17:00 → M ED 11-11 02:10
DX: G89.29 Other chronic pain (principal); R10.84 Generalized abdominal pain; E11.9 Type 2 diabetes mellitus without complications; K21.9 Gastro-esophageal reflux disease without esophagitis; Z86.73 Personal history of transient ischemic attack (TIA), and cerebral infarction without residual deficits; Z93.2 Ileostomy status; N20.0 Calculus of kidney; Z79.4 Long term (current) use of insulin; Z79.899 Other long term (current) drug therapy; Z91.018 Allergy to other foods; Z88.3 Allergy status to other anti-infective agents; Z88.0 Allergy status to penicillin; Z88.2 Allergy status to sulfonamides; Z91.89 Other specified personal risk factors, not elsewhere classified; Z88.8 Allergy status to other drugs, medicaments and biological substances; Z91.040 Latex allergy status; Z88.5 Allergy status to narcotic agent; Z91.011 Allergy to milk products; Z91.041 Radiographic dye allergy status; E83.42 Hypomagnesemia
CPT/HCPCS: 36415; 36591; 71045; 74176; 80047; 80048; 80076; 81001; 82150; 82550; 82553; 83605; 83690; 83735; 84484; 85025; 87040; 87088; 93005; 93041; 96361; 96365; 96366; 96374; 96375; 96376; 99285; J1171; J1642; J2405; J3475

== ENCOUNTER 2024-11-14 17:16 | Observation (INO) | payer OTHER ==
[~2024-11-14] VITALS: Ht 132.1 cm; Wt 72.6 kg
[2024-11-14 20:23] LABS: CK-MB VALUE MASS 2.0 NG/ML (<3.6)
[2024-11-14 20:24] LABS: BASO # 0.0 10^3/uL (0.0-0.2); BASO % 0.4 % (0.0-1.0); EOS # 0.1 10^3/uL (0.0-0.5); EOS % 0.7 % (0.0-3.0); LYMPH # 1.5 10^3/uL (1.5-5.0); LYMPH % 20.6 % (24.0-44.0); MONO # 0.7 10^3/uL (0.0-0.8); MONO % 9.5 % (2.0-8.0); NEUTROPHILS # 4.8 10^3/uL (1.5-8.5); NEUTROPHILS % 68.0 % (36.0-66.0); PLATELET COUNT, AUTOMATED 220 10^3/uL (150-450)
[2024-11-14 20:25] LABS: CALCIUM LEVEL 10.2 MG/DL (8.3-10.6); CARBON DIOXIDE LEVEL 27 MMOL/L (20-31); CHLORIDE LEVEL 94 MMOL/L (98-107); CREATININE FOR GFR 0.63 MG/DL (0.55-1.30); GLOMERULAR FILTRATION RATE > 90.0 (>45); MAGNESIUM LEVEL 1.6 MG/DL (1.8-2.4); POTASSIUM SERUM 4.3 MMOL/L (3.5-5.1); SODIUM LEVEL 134 MMOL/L (136-145)
[2024-11-14 20:27] LABS: FREE T4 1.11 NG/DL (0.89-1.76)
[2024-11-14] MEDS: dexAMETHasone 4 MG/ML 1 ML VIAL IV ONE (20:28)
[2024-11-14] MEDS: ACETAMINOPHEN *IV* 1,000 MG in IV 1 EA IV ONE (20:28)
[2024-11-14 20:29] LABS: CPK CREATINE PHOSPHOKINASE 71 U/L (34-145); MB/CK RELATIVE INDEX 2.81 (< OR =4)
[2024-11-14 21:07] LABS: VENOUS BASE EXCESS 2.5 (-2.0-2.0); VENOUS HCO3 27.3 MMOL/L (23.0-27.0); VENOUS O2 SATURATION 85.6 % (60.0-80.0); VENOUS PARTIAL PRESSURE CO2 42.5 mmHg (38.0-50.0); VENOUS PARTIAL PRESSURE O2 52.3 mmHg (30.0-50.0); VENOUS PH 7.425 UNITS (7.330-7.430); VENOUS STANDARD HCO3 26.4 MMOL/L; VENOUS TOTAL CO2 28.6 MMOL/L (24.0-28.0)
[2024-11-14] MEDS: MAG SULF 1GM/100ML (MAG RUN) 1 GM in IV 1 EA IV ONE (21:15)
[2024-11-14 21:53] LABS: AMPHETAMINES LEVEL URINE NEGATIVE (NEGATIVE); BARBITURATES URINE NEGATIVE (NEGATIVE)
[2024-11-14 21:54] LABS: BENZODIAZEPINES URINE NEGATIVE (NEGATIVE); CANNABINOIDS URINE NEGATIVE (NEGATIVE); COCAINE METABOLITE URINE NEGATIVE (NEGATIVE); METHADONE URINE NEGATIVE (NEGATIVE); PHENCYCLIDINE URINE NEGATIVE (NEGATIVE)
[2024-11-14 21:59] LABS: OPIATES URINE POSITIVE (NEGATIVE)
[2024-11-14] MEDS ORDERED: HYDR2TAB2 PO (22:58)
[2024-11-14] MEDS ORDERED: HOME MED LIST COMPLETE! XX SCH (23:00)
[2024-11-15] MEDS ORDERED: DEXTROSE 50% 50 ML SYRINGE IV PRN
[2024-11-15] MEDS ORDERED: GLUCAGON INJ 1 MG VIAL SC PRN
[2024-11-15] MEDS ORDERED: GLUCOSE 4 GM CHEW PO PRN
[2024-11-15] MEDS ORDERED: LACTULOSE 20 GM/30 ML SYRUP UDC PO PRN
[2024-11-15] MEDS ORDERED: NYSTATIN 100,000 UNITS/GM TOPICAL PWD 15 GM TOP PRN
[2024-11-15] MEDS ORDERED: ACETAMINOPHEN 325 MG TAB PO PRN (00:05)
[2024-11-15 00:32] LABS: APPEARANCE, URINE CLOUDY (CLEAR); BACTERIA, URINE AUTO 1+ (NEGATIVE); BILIRUBIN, URINE AUTO NEGATIVE (NEGATIVE); BLOOD, URINE BLOOD NEGATIVE (NEGATIVE); GLUCOSE, URINE (UA) AUTO 3+ mg/dL (NEGATIVE); KETONE, URINE AUTO NEGATIVE (NEGATIVE); LEUKOCYTE ESTERASE, URINE AUTO 3+ (NEGATIVE); MUCUS, URINE SMALL (NEGATIVE); NITRITE, URINE AUTO NEGATIVE (NEGATIVE); PROTEIN, URINE AUTO NEGATIVE (NEGATIVE); RBC, URINE AUTO 16 /HPF (0-3); SPECIFIC GRAVITY URINE AUTO 1.014 (1.002-1.035); SQUAMOUS EPITHELIAL CELL UR AU 2 /HPF (0-6); UROBILINOGEN, URINE AUTO 0.2 mg/dL (0.0-2.0); WBC, URINE AUTO TNTC /HPF (0-3); YEAST LIKE CELL URINE AUTO SMALL
[2024-11-15 00:32] LABS: ALT/SGPT 29 U/L (7.0-40); AST/SGOT 29 U/L (<34)
[2024-11-15] MEDS: LR 1,000 ML IV SCH (00:48)
[2024-11-15] MEDS: MAG SULF 1GM/100ML (MAG RUN) 1 GM in IV 1 EA IV ONE (00:49)
[2024-11-15] MEDS: LanTUS (INSULIN GLARGINE INJ) 1 UNITS/0.01 ML SC SCH (00:56)
[2024-11-15 04:53] VITALS: BP 130/73; TEMP 97; O2SAT 98
[2024-11-15] MEDS: ALBUTEROL 90 MCG/ACT 8 GM HFA INHALER INH PRN (09:10)
[2024-11-15] MEDS: SENNA 8.6 MG TAB PO SCH (09:48)
[2024-11-15] MEDS: METOCLOPRAMIDE 10 MG TAB PO SCH (09:48)
[2024-11-15] MEDS: LORATADINE 10 MG TAB PO SCH (09:48)
[2024-11-15] MEDS: SUCRALFATE 1 GM TAB PO SCH (09:48)
[2024-11-15] MEDS: MIRALAX *UNIT DOSE* 17 GM PACKET PO SCH (09:48)
[2024-11-15] MEDS: FAMOTIDINE 20 MG TAB PO SCH (09:48)
[2024-11-15] MEDS: SIMETHICONE 80MG CHEW TAB PO SCH (09:48)
[2024-11-15] MEDS: FLUTICASONE PROPIONATE 0.05% NASAL SPRAY 16 GM NARES SCH (09:49)
[2024-11-15] MEDS: HEPARIN SOD 5000 UNITS/ML 1 ML VIAL/SYRINGE SC SCH (09:49)
[2024-11-15] MEDS: INSULIN LISPRO (NovoLOG) PER UNIT SC SCH (09:50)
[2024-11-15] MEDS ORDERED: ATORVASTATIN 20 MG TAB PO SCH (21:00)
[2024-11-15] MEDS ORDERED: INSULIN LISPRO (NovoLOG) PER UNIT SC SCH (21:00)
== END 2024-11-15 10:15 | disposition left against medical advice (07) ==
LOC: EDBD 17:16 → M ED 17:16 → M ED INP 17:17 → M MSPAV 11-15 04:48
PROVIDERS: ADMIT Student in an Organized Health Care Education/Training Program; ATTEND Student in an Organized Health Care Education/Training Program
DX: R55 Syncope and collapse (principal); Z53.29 Procedure and treatment not carried out because of patient's decision for other reasons; Z86.73 Personal history of transient ischemic attack (TIA), and cerebral infarction without residual deficits; E11.9 Type 2 diabetes mellitus without complications; Z79.4 Long term (current) use of insulin; Z86.718 Personal history of other venous thrombosis and embolism; R10.9 Unspecified abdominal pain; Z79.899 Other long term (current) drug therapy
CPT/HCPCS: 36415; 70450; 71250; 72125; 74176; 80047; 80048; 80076; 80307; 81001; 82550; 82553; 82803; 83735; 83880; 84439; 84443; 84484; 85025; 85379; 93005; 93041; 93306; 93880; 93970; 94664; 94760; 96361; 96372; 96374; 96375; 99285; J0131; J1100; J1815; J3475

== ENCOUNTER 2024-11-17 06:12 | Outpatient (CLI) | payer OTHER ==
[~2024-11-17] VITALS: Ht 167.6 cm; Wt 67.7 kg
[2024-11-17 07:12] VITALS: BP 129/72; O2SAT 97
[2024-11-17] MEDS: MAG SULF 1GM/100ML (MAG RUN) X1 IV ONE ×2 (07:42→08:46)
[2024-11-17] MEDS ORDERED: HEPARIN LOCK FLUSH 100 UNITS/ML 3 ML SYRINGE IV PRN (08:10)
[2024-11-17] MEDS ORDERED: SODIUM CHLORIDE 0.9% INJ 10 ML SYR IV PRN (08:10)
[2024-11-17] MEDS: SODIUM CHLORIDE 0.9% INJ 10 ML SYR IV SCH (08:47)
[2024-11-17] MEDS: HEPARIN LOCK FLUSH 100 UNITS/ML 3 ML SYRINGE IV SCH (08:47)
[2024-11-17] MEDS: ALTEPLASE 2 MG/2 ML VIAL XX ONE (10:11)
[2024-11-17 11:35] VITALS: BP 129/65; O2SAT 97
== END 2024-11-17 11:35 ==
LOC: M INFU 06:12
DX: E83.42 Hypomagnesemia (principal); Z91.041 Radiographic dye allergy status; Z91.040 Latex allergy status; Z91.89 Other specified personal risk factors, not elsewhere classified; Z88.3 Allergy status to other anti-infective agents; Z88.0 Allergy status to penicillin; Z88.2 Allergy status to sulfonamides; Z88.8 Allergy status to other drugs, medicaments and biological substances; Z88.1 Allergy status to other antibiotic agents; Z88.5 Allergy status to narcotic agent
CPT/HCPCS: 36415; 36593; 83735; 96365; 96366; J1642; J2997; J3475

== ENCOUNTER 2024-11-20 20:37 | Inpatient (IN) | payer OTHER ==
[~2024-11-20] VITALS: Ht 167.6 cm; Wt 77.5 kg
[2024-11-20] MEDS: NS (Normal Saline) 0.9% 1,000 ML IV ONE (21:41)
[2024-11-20 21:44] LABS: BASO # 0.0 10^3/uL (0.0-0.2); BASO % 0.2 % (0.0-1.0); EOS # 0.1 10^3/uL (0.0-0.5); EOS % 1.1 % (0.0-3.0); LYMPH # 0.5 10^3/uL (1.5-5.0); LYMPH % 10.4 % (24.0-44.0); MONO # 0.5 10^3/uL (0.0-0.8); MONO % 10.4 % (2.0-8.0); NEUTROPHILS # 3.5 10^3/uL (1.5-8.5); NEUTROPHILS % 76.8 % (36.0-66.0); PLATELET COUNT, AUTOMATED 253 10^3/uL (150-450)
[2024-11-20] MEDS: ONDANSETRON 4MG 2ML VIAL IV ONE (21:48)
[2024-11-20] MEDS: HYDROMORPHONE HCL 0.5 MG/0.5 ML SYRINGE IV PRN (21:49)
[2024-11-20 22:01] LABS: ALT/SGPT 45.0 U/L (7.0-40); AST/SGOT 32.0 U/L (<34); CALCIUM LEVEL 10.8 MG/DL (8.3-10.6); CARBON DIOXIDE LEVEL 22.0 MMOL/L (20-31); CHLORIDE LEVEL 103.0 MMOL/L (98-107); CREATININE FOR GFR 0.79 MG/DL (0.55-1.30); GLOMERULAR FILTRATION RATE 83.5 (>45); MAGNESIUM LEVEL 1.4 MG/DL (1.8-2.4); POTASSIUM SERUM 4.4 MMOL/L (3.5-5.1); SODIUM LEVEL 139.0 MMOL/L (136-145)
[2024-11-20] MEDS: NS 0.9% IV ONE (22:38)
[2024-11-20] MEDS: MAG SULF 1GM/100ML (MAG RUN) 1 GM in IV 1 EA IV ONE (22:38)
[2024-11-20] MEDS: [UNRECOGNIZED DRUG - OTHER] IV ONE (22:38)
[2024-11-21] VITALS (14 sets, daily range): BP systolic 80–116; BP diastolic 50–59; TEMP 96.9–97.4; O2SAT 95–99
[2024-11-21] MEDS ORDERED: HOME MED LIST COMPLETE! XX SCH (01:40)
[2024-11-21] MEDS ORDERED: MORPHINE 2 MG/ML 1 ML VIAL IV PRN (02:35)
[2024-11-21] MEDS ORDERED: MORPHINE 4 MG/ML 1 ML VIAL IV PRN (02:35)
[2024-11-21] MEDS ORDERED: DEXTROSE 50% 50 ML SYRINGE IV PRN (02:45)
[2024-11-21] MEDS ORDERED: GLUCAGON INJ 1 MG VIAL SC PRN (02:45)
[2024-11-21] MEDS ORDERED: GLUCOSE 4 GM CHEW PO PRN (02:45)
[2024-11-21] MEDS: LR 1,000 ML IV SCH ×2 (02:56→06:00)
[2024-11-21] MEDS: MAG SULF 1GM/100ML (MAG RUN) 1 GM in IV 1 EA IV ONE (02:57)
[2024-11-21] MEDS: PIPERACILLIN/TAZOBACTAM SOD 3.375 GM in DEXTROSE 5% (D5W) ADV/MINI-BAG 50 ML IV SCH (03:11)
[2024-11-21] MEDS: PANTOPRAZOLE 40MG VIAL IV SCH (03:11)
[2024-11-21] MEDS: LanTUS (INSULIN GLARGINE INJ) 1 UNITS/0.01 ML SC SCH (03:11)
[2024-11-21 05:38] LABS: PLATELET COUNT, AUTOMATED 169 10^3/uL (150-450)
[2024-11-21] MEDS: LR 1,000 ML IV ONE (05:52)
[2024-11-21 06:01] LABS: ALT/SGPT 31 U/L (7.0-40); AST/SGOT 20 U/L (<34); CALCIUM LEVEL 8.7 MG/DL (8.3-10.6); CARBON DIOXIDE LEVEL 22 MMOL/L (20-31); CHLORIDE LEVEL 108 MMOL/L (98-107); CREATININE FOR GFR 0.70 MG/DL (0.55-1.30); GLOMERULAR FILTRATION RATE > 90.0 (>45); MAGNESIUM LEVEL 2.0 MG/DL (1.8-2.4); POTASSIUM SERUM 4.8 MMOL/L (3.5-5.1); SODIUM LEVEL 140 MMOL/L (136-145)
[2024-11-21] MEDS: INSULIN LISPRO (NovoLOG) PER UNIT SC SCH (06:06)
[2024-11-21] MEDS: HYDROMORPHONE HCL 0.5 MG/0.5 ML SYRINGE IV PRN (08:06)
[2024-11-21 09:39] LABS: KETONE, URINE AUTO RFX NEGATIVE (NEGATIVE); LEUKOCYTE ESTERASE UR AUTO RFX 3+ (NEGATIVE); MUCUS, URINE RFX SMALL (NEGATIVE); NITRITE, URINE AUTO RFX NEGATIVE (NEGATIVE); RBC, URINE AUTO RFX 20 /HPF (0-3); SQUAM EPITHELIAL CELL UR AURFX 1 /HPF (0-6); WBC, URINE AUTO RFX 40 /HPF (0-3); YEAST LIKE CELL URINE AUTO RFX SMALL
[2024-11-21] MEDS: HEPARIN SOD 5000 UNITS/ML 1 ML VIAL/SYRINGE SC SCH (09:52)
[2024-11-21] MEDS: ONDANSETRON 4MG 2ML VIAL IV PRN (21:42)
[2024-11-22] VITALS (26 sets, daily range): BP systolic 109–140; BP diastolic 19–69; TEMP 96.7–97.7; O2SAT 96–100
[2024-11-22] MEDS: HYDROMORPHONE HCL 0.5 MG/0.5 ML SYRINGE IV PRN (04:11)
[2024-11-22 06:07] LABS: PLATELET COUNT, AUTOMATED 106 10^3/uL (150-450)
[2024-11-22 08:03] LABS: ALT/SGPT 22 U/L (7.0-40); AST/SGOT 19 U/L (<34); CALCIUM LEVEL 8.6 MG/DL (8.3-10.6); CARBON DIOXIDE LEVEL 23 MMOL/L (20-31); CHLORIDE LEVEL 110 MMOL/L (98-107); CREATININE FOR GFR 0.57 MG/DL (0.55-1.30); GLOMERULAR FILTRATION RATE > 90.0 (>45); MAGNESIUM LEVEL 1.7 MG/DL (1.8-2.4); POTASSIUM SERUM 3.8 MMOL/L (3.5-5.1); SODIUM LEVEL 143 MMOL/L (136-145)
[2024-11-22] MEDS ORDERED: LACTULOSE 20 GM/30 ML SYRUP UDC PO PRN (13:25)
[2024-11-22] MEDS: MAG SULF 1GM/100ML (MAG RUN) 1 GM in IV 1 EA IV SCH (13:49)
[2024-11-22] MEDS ORDERED: METOCLOPRAMIDE 5 MG TAB PO PRN (14:00)
[2024-11-22] MEDS: cefTRIAXone SOD 1 GM in DEXTROSE 5% (D5W) ADV/MINI-BAG 50 ML IV SCH (15:39)
[2024-11-22] MEDS ORDERED: METOCLOPRAMIDE 10 MG TAB PO SCH (16:00)
[2024-11-22] MEDS: INSULIN LISPRO (NovoLOG) PER UNIT SC SCH ×2 (17:30→20:56)
[2024-11-22] MEDS: DICYCLOMINE 10 MG CAP PO SCH (17:59)
[2024-11-22] MEDS: SIMETHICONE 80MG CHEW TAB PO SCH (17:59)
[2024-11-22] MEDS: HYDROmorphone 2 MG TAB PO SCH (18:00)
[2024-11-22] MEDS: LORATADINE 10 MG TAB PO SCH (20:51)
[2024-11-22] MEDS: AMITRIPTYLINE 50MG TAB PO SCH (20:51)
[2024-11-22] MEDS: ATORVASTATIN 20 MG TAB PO SCH (20:51)
[2024-11-22] MEDS: SENNA 8.6 MG TAB PO SCH (20:51)
[2024-11-22] MEDS: SUCRALFATE 1 GM TAB PO SCH (20:51)
[2024-11-22] MEDS: NYSTATIN 100,000 UNITS/GM TOPICAL PWD 15 GM TOP SCH (20:52)
[2024-11-22] MEDS: ALBUTEROL 90 MCG/ACT 8 GM HFA INHALER INH PRN (21:07)
[2024-11-23] VITALS (13 sets, daily range): BP systolic 108–137; BP diastolic 52–71; TEMP 96.8–97.2; O2SAT 96–100
[2024-11-23 05:24] LABS: PLATELET COUNT, AUTOMATED 160 10^3/uL (150-450)
[2024-11-23 05:52] LABS: ALT/SGPT 18 U/L (7.0-40); AST/SGOT 14 U/L (<34); CALCIUM LEVEL 8.6 MG/DL (8.3-10.6); CARBON DIOXIDE LEVEL 28 MMOL/L (20-31); CHLORIDE LEVEL 107 MMOL/L (98-107); CREATININE FOR GFR 0.56 MG/DL (0.55-1.30); GLOMERULAR FILTRATION RATE > 90.0 (>45); MAGNESIUM LEVEL 1.7 MG/DL (1.8-2.4); POTASSIUM SERUM 3.8 MMOL/L (3.5-5.1); SODIUM LEVEL 143 MMOL/L (136-145)
[2024-11-23] MEDS: FLUTICASONE PROPIONATE 0.05% NASAL SPRAY 16 GM NARES SCH (08:24)
[2024-11-23] MEDS: AMITRIPTYLINE 50MG TAB PO SCH (08:25)
[2024-11-23] MEDS: MAG SULF 1GM/100ML (MAG RUN) 1 GM in IV 1 EA IV ONE (08:27)
[2024-11-23] MEDS: IPRATROPIUM 0.5 MG/ALBUTEROL 2.5 MG INH SOL UD 3 ML NEB PRN (23:04)
[2024-11-24 04:00] VITALS: BP 137/70; TEMP 98.4; O2SAT 97
[2024-11-24 05:54] LABS: PLATELET COUNT, AUTOMATED 159 10^3/uL (150-450)
[2024-11-24 06:28] LABS: ALT/SGPT 23 U/L (7.0-40); AST/SGOT 30 U/L (<34); CALCIUM LEVEL 8.6 MG/DL (8.3-10.6); CARBON DIOXIDE LEVEL 23 MMOL/L (20-31); CHLORIDE LEVEL 107 MMOL/L (98-107); CREATININE FOR GFR 0.51 MG/DL (0.55-1.30); GLOMERULAR FILTRATION RATE > 90.0 (>45); MAGNESIUM LEVEL 1.5 MG/DL (1.8-2.4); POTASSIUM SERUM 4.4 MMOL/L (3.5-5.1); SODIUM LEVEL 143 MMOL/L (136-145)
[2024-11-24 07:21] VITALS: BP 158/68; TEMP 97.6; O2SAT 97
[2024-11-24] MEDS ORDERED: MAGN1TAB26 PO (11:02)
[2024-11-24 12:03] VITALS: BP 147/67; TEMP 96.7; O2SAT 100
[2024-11-24] MEDS ORDERED: LANTINJ4 SC (12:08)
[2024-11-24] MEDS: MAG SULF 1GM/100ML (MAG RUN) 1 GM in IV 1 EA IV SCH (12:09)
[2024-11-24] MEDS ORDERED: SODIUM CHLORIDE 0.9% INJ 10 ML SYR IV PRN (16:20)
[2024-11-24] MEDS: HEPARIN LOCK FLUSH 100 UNITS/ML 3 ML SYRINGE IV PRN (16:55)
== END 2024-11-24 16:58 | disposition home or self-care (01) | DRG 251 ==
LOC: M ED 20:37 → M ED INP 20:38 → M PCU 11-21 04:32 → OBSVTOIN 11-21 11:03 → M PCU 11-24 10:30
PROVIDERS: ADMIT Student in an Organized Health Care Education/Training Program; ATTEND Internal Medicine
DX: R10.9 Unspecified abdominal pain (principal); E11.43 Type 2 diabetes mellitus with diabetic autonomic (poly)neuropathy; I95.9 Hypotension, unspecified; E83.42 Hypomagnesemia; E11.649 Type 2 diabetes mellitus with hypoglycemia without coma; E83.52 Hypercalcemia; E78.5 Hyperlipidemia, unspecified; E86.0 Dehydration; F39 Unspecified mood [affective] disorder; G89.29 Other chronic pain; J44.9 Chronic obstructive pulmonary disease, unspecified; J45.909 Unspecified asthma, uncomplicated; K21.9 Gastro-esophageal reflux disease without esophagitis; N39.0 Urinary tract infection, site not specified; R19.8 Other specified symptoms and signs involving the digestive system and abdomen; R55 Syncope and collapse; Z79.4 Long term (current) use of insulin; Z88.1 Allergy status to other antibiotic agents; Z93.2 Ileostomy status; Z86.73 Personal history of transient ischemic attack (TIA), and cerebral infarction without residual deficits; Z86.711 Personal history of pulmonary embolism; Z86.718 Personal history of other venous thrombosis and embolism; Z79.899 Other long term (current) drug therapy; Z88.0 Allergy status to penicillin; Z91.040 Latex allergy status; Z88.2 Allergy status to sulfonamides; Z91.018 Allergy to other foods; Z88.5 Allergy status to narcotic agent; Z88.6 Allergy status to analgesic agent; Z91.011 Allergy to milk products

== ENCOUNTER 2024-12-01 06:20 | Outpatient (CLI) | payer OTHER ==
[~2024-12-01] VITALS: Ht 167.6 cm; Wt 77.5 kg
[~2024-12-01 06:20] MED LIST changes: +MAGN1TAB26 PO
[2024-12-01 07:00] VITALS: BP 123/63; O2SAT 96
[2024-12-01] MEDS: MAG SULF 1GM/100ML (MAG RUN) X1 IV ONE ×2 (07:15→08:21)
[2024-12-01] MEDS: HEPARIN LOCK FLUSH 100 UNITS/ML 3 ML SYRINGE IV PRN (08:21)
[2024-12-01] MEDS: SODIUM CHLORIDE 0.9% INJ 10 ML SYR IV PRN (08:22)
[2024-12-01 09:21] VITALS: BP 120/60; O2SAT 96
== END 2024-12-01 09:30 | disposition home or self-care (01) ==
LOC: M INFU 06:20
DX: E83.42 Hypomagnesemia (principal); Z88.3 Allergy status to other anti-infective agents; Z88.0 Allergy status to penicillin; Z88.2 Allergy status to sulfonamides; Z88.8 Allergy status to other drugs, medicaments and biological substances; Z88.1 Allergy status to other antibiotic agents; Z88.5 Allergy status to narcotic agent; Z91.89 Other specified personal risk factors, not elsewhere classified; Z91.041 Radiographic dye allergy status; Z91.040 Latex allergy status
CPT/HCPCS: 36591; 83735; J1642; J3475

== ENCOUNTER 2024-12-08 06:14 | Outpatient (CLI) | payer OTHER ==
[2024-12-08] MEDS: MAG SULF 1GM/100ML (MAG RUN) X1 IV ONE ×2 (07:18→08:41)
[2024-12-08 07:33] VITALS: BP 122/69; O2SAT 98
[2024-12-08] MEDS: SODIUM CHLORIDE 0.9% INJ 10 ML SYR IV PRN (08:41)
[2024-12-08] MEDS: HEPARIN LOCK FLUSH 100 UNITS/ML 3 ML SYRINGE IV PRN (08:41)
[2024-12-08 09:50] VITALS: BP 126/63; O2SAT 98
== END 2024-12-08 09:55 | disposition home or self-care (01) ==
LOC: M INFU 06:14
DX: E83.42 Hypomagnesemia (principal); Z91.041 Radiographic dye allergy status; Z88.3 Allergy status to other anti-infective agents; Z88.0 Allergy status to penicillin; Z88.2 Allergy status to sulfonamides; Z91.89 Other specified personal risk factors, not elsewhere classified; Z91.040 Latex allergy status; Z88.1 Allergy status to other antibiotic agents; Z88.5 Allergy status to narcotic agent; Z88.8 Allergy status to other drugs, medicaments and biological substances
CPT/HCPCS: 36591; 83735; 96365; 96366; J1642; J3475

== ENCOUNTER 2024-12-15 06:28 | Outpatient (CLI) | payer OTHER ==
[~2024-12-15] VITALS: Ht 167.6 cm; Wt 76.0 kg
[2024-12-15 06:45] VITALS: BP 96/53; O2SAT 97
[2024-12-15] MEDS: MAG SULF 1GM/100ML (MAG RUN) X1 IV ONE (07:19)
[2024-12-15] MEDS: MAGNESIUM SULFATE 1 GM/100 ML IV SCH (08:13)
[2024-12-15] MEDS: HEPARIN LOCK FLUSH 100 UNITS/ML 3 ML SYRINGE IV PRN (11:10)
[2024-12-15] MEDS: SODIUM CHLORIDE 0.9% INJ 10 ML SYR IV PRN (11:11)
[2024-12-15 11:30] VITALS: BP 126/58; O2SAT 96
== END 2024-12-15 11:30 | disposition home or self-care (01) ==
LOC: M INFU 06:28
DX: E83.42 Hypomagnesemia (principal); Z88.0 Allergy status to penicillin; Z88.2 Allergy status to sulfonamides; Z88.8 Allergy status to other drugs, medicaments and biological substances; Z88.1 Allergy status to other antibiotic agents; Z88.5 Allergy status to narcotic agent; Z88.3 Allergy status to other anti-infective agents; Z91.89 Other specified personal risk factors, not elsewhere classified; Z91.040 Latex allergy status; Z91.041 Radiographic dye allergy status
CPT/HCPCS: 36415; 83735; 96365; 96366; J1642; J3475

== ENCOUNTER 2024-12-22 06:13 | Outpatient (CLI) | payer OTHER ==
[~2024-12-22] VITALS: Ht 167.6 cm; Wt 76.0 kg
[~2024-12-22 06:13] MED LIST changes: +TOBR5DRO6 OS; -TOBRSUS39 OS
[2024-12-22] MEDS: MAG SULF 1GM/100ML (MAG RUN) X1 IV ONE (07:04)
[2024-12-22] MEDS ORDERED: HEPARIN LOCK FLUSH 100 UNITS/ML 3 ML SYRINGE IV PRN (07:15)
[2024-12-22] MEDS ORDERED: SODIUM CHLORIDE 0.9% INJ 10 ML SYR IV PRN (07:15)
[2024-12-22 07:16] VITALS: BP 133/69; O2SAT 96
[2024-12-22] MEDS: MAGNESIUM SULFATE 1 GM/100 ML IV ONE (08:39)
[2024-12-22] MEDS: HEPARIN LOCK FLUSH 100 UNITS/ML 3 ML SYRINGE IV PRN (08:41)
[2024-12-22] MEDS: SODIUM CHLORIDE 0.9% INJ 10 ML SYR IV PRN (08:41)
[2024-12-22 09:50] VITALS: BP 163/77; O2SAT 95
== END 2024-12-22 09:50 ==
LOC: M INFU 06:13
DX: E83.42 Hypomagnesemia (principal); Z91.041 Radiographic dye allergy status; Z91.040 Latex allergy status; Z88.3 Allergy status to other anti-infective agents; Z88.0 Allergy status to penicillin; Z88.2 Allergy status to sulfonamides; Z91.89 Other specified personal risk factors, not elsewhere classified; Z88.8 Allergy status to other drugs, medicaments and biological substances; Z88.1 Allergy status to other antibiotic agents; Z88.5 Allergy status to narcotic agent
CPT/HCPCS: 36415; 83735; 96365; 96366; J1642; J3475

== ENCOUNTER 2024-12-31 19:37 | Emergency (ER) | payer OTHER ==
[~2024-12-31] VITALS: Ht 170.2 cm; Wt 64.1 kg
[2024-12-31] MEDS: HYDROMORPHONE HCL 0.5 MG/0.5 ML SYRINGE IV PRN (21:57)
[2024-12-31 22:10] LABS: BASO # 0.0 10^3/uL (0.0-0.2); BASO % 0.3 % (0.0-1.0); EOS # 0.1 10^3/uL (0.0-0.5); EOS % 1.7 % (0.0-3.0); LYMPH # 1.6 10^3/uL (1.5-5.0); LYMPH % 27.8 % (24.0-44.0); MONO # 0.7 10^3/uL (0.0-0.8); MONO % 11.4 % (2.0-8.0); NEUTROPHILS # 3.4 10^3/uL (1.5-8.5); NEUTROPHILS % 58.5 % (36.0-66.0); PLATELET COUNT, AUTOMATED 213 10^3/uL (150-450)
[2024-12-31 22:28] LABS: ALT/SGPT 33 U/L (7.0-40); AST/SGOT 42 U/L (<34); CALCIUM LEVEL 10.2 MG/DL (8.3-10.6); CARBON DIOXIDE LEVEL 29 MMOL/L (20-31); CHLORIDE LEVEL 107 MMOL/L (98-107); CREATININE FOR GFR 0.50 MG/DL (0.55-1.30); GLOMERULAR FILTRATION RATE > 90.0 (>45); POTASSIUM SERUM 4.1 MMOL/L (3.5-5.1); SODIUM LEVEL 142 MMOL/L (136-145)
[2025-01-01] VITALS: TEMP 99.1
[2025-01-01] MEDS: NS (Normal Saline) 0.9% 1,000 ML IV ONE
[2025-01-01] MEDS: NORCO 5/325MG TABLET (HOME DOSE PACK) PO ONE (04:35)
[2025-01-01] MEDS ORDERED: HYDR-3713 PO (04:35)
[2025-01-01 04:52] VITALS: O2SAT 97
[2025-01-01 05:00] VITALS: BP 137/71
== END 2025-01-01 05:06 | disposition home or self-care (01) ==
LOC: M ED 19:37
DX: R10.9 Unspecified abdominal pain (principal); F11.20 Opioid dependence, uncomplicated; R16.0 Hepatomegaly, not elsewhere classified; E11.9 Type 2 diabetes mellitus without complications; K21.9 Gastro-esophageal reflux disease without esophagitis; E78.5 Hyperlipidemia, unspecified; Z86.73 Personal history of transient ischemic attack (TIA), and cerebral infarction without residual deficits; Z86.711 Personal history of pulmonary embolism; Z86.718 Personal history of other venous thrombosis and embolism; Z76.5 Malingerer [conscious simulation]; Z93.2 Ileostomy status; Z79.4 Long term (current) use of insulin; Z79.899 Other long term (current) drug therapy; Z88.3 Allergy status to other anti-infective agents; Z88.0 Allergy status to penicillin; Z88.2 Allergy status to sulfonamides; Z88.8 Allergy status to other drugs, medicaments and biological substances; Z88.1 Allergy status to other antibiotic agents; Z88.5 Allergy status to narcotic agent; Z91.89 Other specified personal risk factors, not elsewhere classified; Z91.02 Food additives allergy status; Z91.040 Latex allergy status; Z91.018 Allergy to other foods
CPT/HCPCS: 74176; 80048; 80076; 83605; 83690; 85025; 93005; 93041; 96374; 96375; 96376; 99285; J1171; J2765

== ENCOUNTER 2025-01-05 06:10 | Outpatient (CLI) | payer OTHER ==
[~2025-01-05] VITALS: Ht 170.2 cm; Wt 64.0 kg
[~2025-01-05 06:10] MED LIST changes: +HYDR-3713 PO
[2025-01-05 06:53] VITALS: BP 134/67; O2SAT 96
[2025-01-05] MEDS: MAG SULF 1GM/100ML (MAG RUN) X1 IV ONE (07:07)
[2025-01-05] MEDS: MAGNESIUM SULFATE 1 GM/100 ML IV SCH (08:10)
[2025-01-05] MEDS: SODIUM CHLORIDE 0.9% INJ 10 ML SYR IV PRN (10:35)
[2025-01-05] MEDS: HEPARIN LOCK FLUSH 100 UNITS/ML 3 ML SYRINGE IV PRN (10:35)
[2025-01-05 11:50] VITALS: BP 119/78; O2SAT 95
== END 2025-01-05 11:50 | disposition home or self-care (01) ==
LOC: M INFU 06:10
DX: E83.42 Hypomagnesemia (principal); Z91.040 Latex allergy status; Z88.0 Allergy status to penicillin; Z88.2 Allergy status to sulfonamides; Z91.89 Other specified personal risk factors, not elsewhere classified; Z88.8 Allergy status to other drugs, medicaments and biological substances; Z88.1 Allergy status to other antibiotic agents; Z88.5 Allergy status to narcotic agent; Z88.3 Allergy status to other anti-infective agents; Z91.041 Radiographic dye allergy status
CPT/HCPCS: 83735; 96365; 96366; J1642; J3475

== ENCOUNTER 2025-01-08 11:23 | Emergency (ER) | payer OTHER ==
[~2025-01-08] VITALS: Ht 167.6 cm; Wt 68.6 kg
[2025-01-08] MEDS: HYDROMORPHONE HCL 0.5 MG/0.5 ML SYRINGE IV PRN (12:52)
[2025-01-08] MEDS: NS (Normal Saline) 0.9% 1,000 ML IV SCH (12:52)
[2025-01-08 12:58] LABS: BASO # 0.0 10^3/uL (0.0-0.2); BASO % 0.6 % (0.0-1.0); EOS # 0.1 10^3/uL (0.0-0.5); EOS % 1.1 % (0.0-3.0); LYMPH # 1.6 10^3/uL (1.5-5.0); LYMPH % 22.3 % (24.0-44.0); MONO # 0.6 10^3/uL (0.0-0.8); MONO % 8.5 % (2.0-8.0); NEUTROPHILS # 4.7 10^3/uL (1.5-8.5); NEUTROPHILS % 67.1 % (36.0-66.0); PLATELET COUNT, AUTOMATED 211 10^3/uL (150-450)
[2025-01-08 13:28] LABS: ALT/SGPT 27 U/L (7.0-40); AST/SGOT 30 U/L (<34); CALCIUM LEVEL 9.3 MG/DL (8.3-10.6); CARBON DIOXIDE LEVEL 25 MMOL/L (20-31); CHLORIDE LEVEL 105 MMOL/L (98-107); CREATININE FOR GFR 0.49 MG/DL (0.55-1.30); GLOMERULAR FILTRATION RATE > 90.0 (>45); MAGNESIUM LEVEL 1.8 MG/DL (1.8-2.4); POTASSIUM SERUM 4.1 MMOL/L (3.5-5.1); SODIUM LEVEL 135 MMOL/L (136-145)
[2025-01-08] MEDS: READI-CAT 2 PO SCH (14:31)
[2025-01-08 18:11] VITALS: BP 120/62; TEMP 98.4; O2SAT 91
== END 2025-01-08 18:15 | disposition home or self-care (01) ==
LOC: EDBD 11:23 → M ED 11:23
DX: R10.9 Unspecified abdominal pain (principal); G89.29 Other chronic pain; E11.9 Type 2 diabetes mellitus without complications; E78.5 Hyperlipidemia, unspecified; J45.909 Unspecified asthma, uncomplicated; Z86.73 Personal history of transient ischemic attack (TIA), and cerebral infarction without residual deficits; Z86.711 Personal history of pulmonary embolism; Z93.3 Colostomy status; Z79.899 Other long term (current) drug therapy; Z91.018 Allergy to other foods; Z91.041 Radiographic dye allergy status; Z88.3 Allergy status to other anti-infective agents; Z88.0 Allergy status to penicillin; Z88.2 Allergy status to sulfonamides; Z91.89 Other specified personal risk factors, not elsewhere classified; Z88.8 Allergy status to other drugs, medicaments and biological substances; Z91.040 Latex allergy status; Z88.1 Allergy status to other antibiotic agents; Z88.5 Allergy status to narcotic agent
CPT/HCPCS: 74176; 80048; 80076; 83690; 83735; 85025; 96361; 96374; 96376; 99284; J1171

== ENCOUNTER 2025-01-12 06:21 | Outpatient (CLI) | payer OTHER ==
[~2025-01-12] VITALS: Ht 160 cm; Wt 67.0 kg
[2025-01-12 07:03] VITALS: BP 155/78; O2SAT 97
[2025-01-12] MEDS: MAG SULF 1GM/100ML (MAG RUN) X1 IV ONE ×2 (07:18→08:30)
[2025-01-12] MEDS: SODIUM CHLORIDE 0.9% INJ 10 ML SYR IV SCH (07:18)
[2025-01-12] MEDS: HEPARIN LOCK FLUSH 100 UNITS/ML 3 ML SYRINGE IV SCH (07:18)
[2025-01-12] MEDS: HEPARIN LOCK FLUSH 100 UNITS/ML 3 ML SYRINGE IV PRN (08:33)
[2025-01-12] MEDS: SODIUM CHLORIDE 0.9% INJ 10 ML SYR IV PRN (08:34)
[2025-01-12 10:25] VITALS: BP 101/63; O2SAT 96
== END 2025-01-12 10:20 | disposition home or self-care (01) ==
LOC: M INFU 06:21
DX: E83.42 Hypomagnesemia (principal); Z88.0 Allergy status to penicillin; Z88.2 Allergy status to sulfonamides; Z88.8 Allergy status to other drugs, medicaments and biological substances; Z88.1 Allergy status to other antibiotic agents; Z88.5 Allergy status to narcotic agent; Z88.3 Allergy status to other anti-infective agents; Z91.89 Other specified personal risk factors, not elsewhere classified; Z91.040 Latex allergy status; Z91.041 Radiographic dye allergy status
CPT/HCPCS: 36415; 83735; 96365; 96366; J1642; J3475

== ENCOUNTER → 2025-01-13 | Outpatient (REF) | payer OTHER ==
[2025-01-13 10:43] LABS: APPEARANCE, URINE CLOUDY (CLEAR); BACTERIA, URINE AUTO 1+ (NEGATIVE); BILIRUBIN, URINE AUTO NEGATIVE (NEGATIVE); BLOOD, URINE BLOOD NEGATIVE (NEGATIVE); GLUCOSE, URINE (UA) AUTO NEGATIVE (NEGATIVE); KETONE, URINE AUTO NEGATIVE (NEGATIVE); LEUKOCYTE ESTERASE, URINE AUTO 3+ (NEGATIVE); MUCUS, URINE SMALL (NEGATIVE); NITRITE, URINE AUTO NEGATIVE (NEGATIVE); PROTEIN, URINE AUTO 1+ mg/dL (NEGATIVE); RBC, URINE AUTO 6 /HPF (0-3); SPECIFIC GRAVITY URINE AUTO 1.013 (1.002-1.035); SQUAMOUS EPITHELIAL CELL UR AU 3 /HPF (0-6); UROBILINOGEN, URINE AUTO 0.2 mg/dL (0.0-2.0); WBC, URINE AUTO TNTC /HPF (0-3); YEAST LIKE CELL URINE AUTO MODERATE
== END ==
LOC: M SFHCPLAZ 10:10
DX: N30.00 Acute cystitis without hematuria (principal)

== ENCOUNTER 2025-01-19 06:13 | Outpatient (CLI) | payer OTHER ==
[~2025-01-19] VITALS: Ht 167.6 cm; Wt 68.6 kg
[2025-01-19] MEDS: MAG SULF 1GM/100ML (MAG RUN) X1 IV ONE ×2 (07:21→08:12)
[2025-01-19 07:28] VITALS: BP 118/60; O2SAT 95
[2025-01-19] MEDS ORDERED: HEPARIN LOCK FLUSH 100 UNITS/ML 3 ML SYRINGE IV PRN (07:40)
[2025-01-19] MEDS ORDERED: SODIUM CHLORIDE 0.9% INJ 10 ML SYR IV PRN (07:40)
[2025-01-19] MEDS: HEPARIN LOCK FLUSH 100 UNITS/ML 3 ML SYRINGE IV SCH (08:12)
[2025-01-19] MEDS: SODIUM CHLORIDE 0.9% INJ 10 ML SYR IV SCH (08:12)
[2025-01-19 09:40] VITALS: BP 108/57; O2SAT 94
== END 2025-01-19 09:40 | disposition home or self-care (01) ==
LOC: M INFU 06:13
DX: E83.42 Hypomagnesemia (principal); Z91.040 Latex allergy status; Z88.0 Allergy status to penicillin; Z88.2 Allergy status to sulfonamides; Z88.1 Allergy status to other antibiotic agents; Z88.8 Allergy status to other drugs, medicaments and biological substances; Z88.5 Allergy status to narcotic agent; Z88.3 Allergy status to other anti-infective agents; Z91.041 Radiographic dye allergy status
CPT/HCPCS: 36415; 83735; 96365; 96366; J1642; J3475

== ENCOUNTER → 2025-01-20 | Outpatient (CLI) | payer OTHER | LOC: M WHC 11:56 | PROVIDERS: ATTEND Family Medicine | DX: Z12.31 Encounter for screening mammogram for malignant neoplasm of breast (principal); R92.323 Mammographic fibroglandular density, bilateral breasts ==

== ENCOUNTER 2025-01-21 11:57 | Emergency (ER) | payer OTHER ==
[~2025-01-21] VITALS: Ht 167.6 cm; Wt 68.6 kg
[2025-01-21 12:47] LABS: BASO # 0.0 10^3/uL (0.0-0.2); BASO % 0.5 % (0.0-1.0); EOS # 0.1 10^3/uL (0.0-0.5); EOS % 1.1 % (0.0-3.0); LYMPH # 1.6 10^3/uL (1.5-5.0); LYMPH % 24.6 % (24.0-44.0); MONO # 0.5 10^3/uL (0.0-0.8); MONO % 8.1 % (2.0-8.0); NEUTROPHILS # 4.1 10^3/uL (1.5-8.5); NEUTROPHILS % 65.2 % (36.0-66.0); PLATELET COUNT, AUTOMATED 209 10^3/uL (150-450)
[2025-01-21 13:04] LABS: ALT/SGPT 23 U/L (7.0-40); AST/SGOT 23 U/L (<34)
[2025-01-21] MEDS: ONDANSETRON 4MG 2ML VIAL IV ONE (13:12)
[2025-01-21] MEDS: GASTROGRAFIN SOLUTION 30ML PO SCH (13:45)
[2025-01-21] MEDS: READI-CAT 2 PO SCH (14:31)
[2025-01-21] MEDS: HEPARIN LOCK FLUSH 100 UNITS/ML 3 ML SYRINGE IV ONE (18:15)
[2025-01-21 18:30] VITALS: BP 141/74; TEMP 97.3; O2SAT 98
== END 2025-01-21 19:11 | disposition home or self-care (01) ==
LOC: M ED 11:57
DX: R10.9 Unspecified abdominal pain (principal); E11.9 Type 2 diabetes mellitus without complications; K44.9 Diaphragmatic hernia without obstruction or gangrene; J98.11 Atelectasis; Z86.79 Personal history of other diseases of the circulatory system; Z86.711 Personal history of pulmonary embolism; Z86.718 Personal history of other venous thrombosis and embolism; Z91.041 Radiographic dye allergy status; Z91.0110 Allergy to milk products, unspecified; Z88.0 Allergy status to penicillin; Z88.2 Allergy status to sulfonamides; Z88.6 Allergy status to analgesic agent; Z88.8 Allergy status to other drugs, medicaments and biological substances; Z91.018 Allergy to other foods
CPT/HCPCS: 74176; 80047; 80076; 83690; 85025; 96374; 99285; J1642; J2405; Q9963

== ENCOUNTER 2025-01-26 06:13 | Outpatient (CLI) | payer OTHER ==
[~2025-01-26] VITALS: Ht 167.6 cm; Wt 68.6 kg
[2025-01-26 06:55] VITALS: BP 115/67; O2SAT 96
[2025-01-26] MEDS ORDERED: SODIUM CHLORIDE 0.9% INJ 10 ML SYR IV PRN (07:00)
[2025-01-26] MEDS ORDERED: HEPARIN LOCK FLUSH 100 UNITS/ML 3 ML SYRINGE IV PRN (07:00)
[2025-01-26] MEDS: MAG SULF 1GM/100ML (MAG RUN) X1 IV ONE (07:14)
[2025-01-26] MEDS: SODIUM CHLORIDE 0.9% INJ 10 ML SYR IV SCH (07:15)
[2025-01-26] MEDS: HEPARIN LOCK FLUSH 100 UNITS/ML 3 ML SYRINGE IV SCH (07:15)
[2025-01-26] MEDS: MAGNESIUM SULFATE 1 GM/100 ML IV SCH (08:30)
[2025-01-26 11:31] VITALS: BP 128/72; O2SAT 96
== END 2025-01-26 11:35 | disposition home or self-care (01) ==
LOC: M INFU 06:13
DX: E83.42 Hypomagnesemia (principal); Z91.018 Allergy to other foods; Z91.041 Radiographic dye allergy status
CPT/HCPCS: 83735; 96365; 96366; J1642; J3475

== ENCOUNTER 2025-02-02 06:12 | Outpatient (CLI) | payer OTHER ==
[2025-02-02] MEDS: HEPARIN LOCK FLUSH 100 UNITS/ML 3 ML SYRINGE IV SCH (07:09)
[2025-02-02] MEDS: MAG SULF 1GM/100ML (MAG RUN) X1 IV ONE ×2 (07:09→08:16)
[2025-02-02] MEDS ORDERED: HEPARIN LOCK FLUSH 100 UNITS/ML 3 ML SYRINGE IV PRN (07:10)
[2025-02-02] MEDS: SODIUM CHLORIDE 0.9% INJ 10 ML SYR IV SCH (07:10)
[2025-02-02] MEDS ORDERED: SODIUM CHLORIDE 0.9% INJ 10 ML SYR IV PRN (07:10)
[2025-02-02 07:17] VITALS: BP 132/63; O2SAT 97
[2025-02-02 09:00] VITALS: BP 131/64; O2SAT 99
== END 2025-02-02 09:03 ==
LOC: M INFU 06:12
DX: E83.42 Hypomagnesemia (principal); Z88.3 Allergy status to other anti-infective agents; Z88.0 Allergy status to penicillin; Z88.2 Allergy status to sulfonamides; Z88.8 Allergy status to other drugs, medicaments and biological substances; Z88.1 Allergy status to other antibiotic agents; Z88.5 Allergy status to narcotic agent; Z91.89 Other specified personal risk factors, not elsewhere classified; Z91.040 Latex allergy status; Z91.041 Radiographic dye allergy status
CPT/HCPCS: 36591; 83735; 96365; 96366; J1642; J3475

== ENCOUNTER → 2025-02-03 | Outpatient (REF) | payer OTHER ==
[2025-02-03 18:31] LABS: APPEARANCE, URINE HAZY (CLEAR); BACTERIA, URINE AUTO NEGATIVE (NEGATIVE); BILIRUBIN, URINE AUTO NEGATIVE (NEGATIVE); BLOOD, URINE BLOOD NEGATIVE (NEGATIVE); CALCIUM OXALATE CRYSTALS MODERATE; GLUCOSE, URINE (UA) AUTO 1+ mg/dL (NEGATIVE); KETONE, URINE AUTO TRACE mg/dL (NEGATIVE); LEUKOCYTE ESTERASE, URINE AUTO 3+ (NEGATIVE); MUCUS, URINE SMALL (NEGATIVE); NITRITE, URINE AUTO NEGATIVE (NEGATIVE); PROTEIN, URINE AUTO NEGATIVE (NEGATIVE); RBC, URINE AUTO 4 /HPF (0-3); SPECIFIC GRAVITY URINE AUTO 1.020 (1.002-1.035); SQUAMOUS EPITHELIAL CELL UR AU 3 /HPF (0-6); UROBILINOGEN, URINE AUTO 0.2 mg/dL (0.0-2.0); WBC, URINE AUTO 78 /HPF (0-3); YEAST LIKE CELL URINE AUTO SMALL
[2025-02-05 12:06] LABS: CANDIDA GLABRATA NAA DETECTED (NOT DETECTED); TRICH VAG BY NAA NOT DETECTED (NOT DETECTED)
[2025-02-05 12:11] LABS: BVAB 2 NEGATIVE (NEGATIVE)
[2025-02-05 13:58] LABS: CHLAMYDIA TRACHOMATIS NAA NOT DETECTED (NOT DETECTED)
== END ==
LOC: M SFHCPLAZ 16:42
DX: N89.8 Other specified noninflammatory disorders of vagina (principal); R39.9 Unspecified symptoms and signs involving the genitourinary system

== ENCOUNTER 2025-02-04 06:46 | Outpatient (CLI) | payer OTHER ==
[~2025-02-04] VITALS: Ht 167.6 cm; Wt 69.5 kg
[2025-02-04 07:30] VITALS: BP 139/75; O2SAT 98
[2025-02-04] MEDS ORDERED: HEPARIN LOCK FLUSH 100 UNITS/ML 3 ML SYRINGE IV ONE (07:30)
[2025-02-04] MEDS ORDERED: SODIUM CHLORIDE 0.9% INJ 10 ML SYR IV ONE (07:30)
[2025-02-04] MEDS ORDERED: SODIUM CHLORIDE 0.9% INJ 10 ML SYR IV PRN (07:30)
[2025-02-04] MEDS ORDERED: HEPARIN LOCK FLUSH 100 UNITS/ML 3 ML SYRINGE IV PRN (07:30)
[2025-02-04 07:40] LABS: BASO # 0.0 10^3/uL (0.0-0.2); BASO % 0.4 % (0.0-1.0); EOS # 0.1 10^3/uL (0.0-0.5); EOS % 1.8 % (0.0-3.0); LYMPH # 1.3 10^3/uL (1.5-5.0); LYMPH % 28.0 % (24.0-44.0); MONO # 0.5 10^3/uL (0.0-0.8); MONO % 11.0 % (2.0-8.0); NEUTROPHILS # 2.7 10^3/uL (1.5-8.5); NEUTROPHILS % 58.6 % (36.0-66.0); PLATELET COUNT, AUTOMATED 185 10^3/uL (150-450)
[2025-02-04 08:29] LABS: CREATININE, URINE 117.8 MG/DL; MALB URINE SIEMENS 11.0 MG/L; MAU/CREAT RATIO 9.3 MCG/MG (0.0-30.0)
[2025-02-04 08:32] LABS: ALT/SGPT 29 U/L (7.0-40); AST/SGOT 31 U/L (<34); CALCIUM LEVEL 9.8 MG/DL (8.3-10.6); CARBON DIOXIDE LEVEL 23 MMOL/L (20-31); CHLORIDE LEVEL 109 MMOL/L (98-107); CHOLESTEROL LEVEL 158 MG/DL (<200); CHOLESTEROL RISK RATIO 3.32 (<5); CREATININE FOR GFR 0.46 MG/DL (0.55-1.30); GLOMERULAR FILTRATION RATE > 90.0 (>45); LDL CHOLESTEROL 40.1 MG/DL (<100); NON-HDL-C 110.5 MG/DL; POTASSIUM SERUM 4.2 MMOL/L (3.5-5.1); SODIUM LEVEL 140 MMOL/L (136-145); TRIGLYCERIDES LEVEL 352 MG/DL (<150)
[2025-02-04 08:36] LABS: ESTIMATED AVERAGE GLUCOSE 226.0 MG/DL (60-110)
== END 2025-02-04 07:30 | disposition home or self-care (01) ==
LOC: M INFU 06:46
PROVIDERS: ATTEND Family Medicine
DX: E78.2 Mixed hyperlipidemia (principal); N18.31 Chronic kidney disease, stage 3a; D63.8 Anemia in other chronic diseases classified elsewhere; K76.0 Fatty (change of) liver, not elsewhere classified; E11.22 Type 2 diabetes mellitus with diabetic chronic kidney disease
CPT/HCPCS: 36415; 80053; 80061; 82043; 83036; 85025; 96523; J1642

== ENCOUNTER 2025-02-09 07:00 | Outpatient (CLI) | payer OTHER ==
[~2025-02-09] VITALS: Ht 167.6 cm; Wt 69.5 kg
[~2025-02-09 07:00] MED LIST changes: +HEPARIN LOCK FLUSH 100 UNITS/ML 3 ML SYRINGE IV PRN; +SODIUM CHLORIDE 0.9% INJ 10 ML SYR IV PRN
[2025-02-09 07:18] VITALS: BP 135/66; O2SAT 96
[2025-02-09] MEDS: MAG SULF 1GM/100ML (MAG RUN) X1 IV ONE (07:21)
[2025-02-09] MEDS: SODIUM CHLORIDE 0.9% INJ 10 ML SYR IV SCH (07:21)
[2025-02-09] MEDS: HEPARIN LOCK FLUSH 100 UNITS/ML 3 ML SYRINGE IV SCH (07:21)
[2025-02-09] MEDS: MAGNESIUM SULFATE 1 GM/100 ML IV SCH (08:10)
[2025-02-09 11:30] VITALS: BP 118/63; O2SAT 97
== END 2025-02-09 11:30 | disposition home or self-care (01) ==
LOC: M INFU 07:00
DX: E83.42 Hypomagnesemia (principal); Z91.040 Latex allergy status; Z88.0 Allergy status to penicillin; Z88.2 Allergy status to sulfonamides; Z91.89 Other specified personal risk factors, not elsewhere classified; Z88.1 Allergy status to other antibiotic agents; Z88.8 Allergy status to other drugs, medicaments and biological substances; Z88.5 Allergy status to narcotic agent; Z91.041 Radiographic dye allergy status; Z88.3 Allergy status to other anti-infective agents
CPT/HCPCS: 36591; 83735; 96365; 96366; J1642; J3475

== ENCOUNTER 2025-02-17 06:10 | Outpatient (CLI) | payer OTHER ==
[~2025-02-17 06:10] MED LIST changes: -HEPARIN LOCK FLUSH 100 UNITS/ML 3 ML SYRINGE IV PRN; -SODIUM CHLORIDE 0.9% INJ 10 ML SYR IV PRN
[2025-02-17] MEDS ORDERED: HEPARIN LOCK FLUSH 100 UNITS/ML 3 ML SYRINGE IV PRN (07:00)
[2025-02-17] MEDS ORDERED: SODIUM CHLORIDE 0.9% INJ 10 ML SYR IV PRN (07:00)
[2025-02-17] MEDS: MAG SULF 1GM/100ML (MAG RUN) X1 IV ONE ×2 (07:18→08:12)
[2025-02-17] MEDS: HEPARIN LOCK FLUSH 100 UNITS/ML 3 ML SYRINGE IV SCH (07:18)
[2025-02-17] MEDS: SODIUM CHLORIDE 0.9% INJ 10 ML SYR IV SCH (07:18)
[2025-02-17 07:26] VITALS: BP 155/70; O2SAT 96
[2025-02-17 09:15] VITALS: BP 127/67; O2SAT 98
== END 2025-02-17 09:16 ==
LOC: M INFU 06:10
DX: E83.42 Hypomagnesemia (principal); Z91.040 Latex allergy status; Z91.041 Radiographic dye allergy status; Z91.89 Other specified personal risk factors, not elsewhere classified; Z88.0 Allergy status to penicillin; Z88.2 Allergy status to sulfonamides; Z88.1 Allergy status to other antibiotic agents; Z88.5 Allergy status to narcotic agent; Z88.3 Allergy status to other anti-infective agents; Z88.8 Allergy status to other drugs, medicaments and biological substances
CPT/HCPCS: 83735; 96365; 96366; J1642; J3475

== ENCOUNTER 2025-02-23 06:18 | Outpatient (CLI) | payer OTHER ==
[~2025-02-23] VITALS: Ht 167.6 cm; Wt 69.0 kg
[2025-02-23] MEDS ORDERED: HEPARIN LOCK FLUSH 100 UNITS/ML 3 ML SYRINGE IV PRN (07:00)
[2025-02-23] MEDS ORDERED: SODIUM CHLORIDE 0.9% INJ 10 ML SYR IV PRN (07:00)
[2025-02-23] MEDS: HEPARIN LOCK FLUSH 100 UNITS/ML 3 ML SYRINGE IV SCH (07:03)
[2025-02-23] MEDS: SODIUM CHLORIDE 0.9% INJ 10 ML SYR IV SCH (07:03)
[2025-02-23] MEDS: MAG SULF 1GM/100ML (MAG RUN) X1 IV ONE (07:03)
[2025-02-23 07:12] VITALS: BP 122/65; O2SAT 95
[2025-02-23] MEDS: MAGNESIUM SULFATE 1 GM/100 ML IV SCH (07:57)
[2025-02-23 10:55] VITALS: BP 115/59; O2SAT 95
== END 2025-02-23 11:15 | disposition home or self-care (01) ==
LOC: M INFU 06:18
DX: E83.42 Hypomagnesemia (principal); Z91.041 Radiographic dye allergy status; Z88.0 Allergy status to penicillin; Z88.2 Allergy status to sulfonamides; Z91.89 Other specified personal risk factors, not elsewhere classified; Z88.1 Allergy status to other antibiotic agents; Z88.8 Allergy status to other drugs, medicaments and biological substances; Z88.5 Allergy status to narcotic agent; Z88.3 Allergy status to other anti-infective agents
CPT/HCPCS: 36415; 83735; 96365; 96366; J1642; J3475

== ENCOUNTER 2025-03-01 16:31 | Inpatient (IN) | payer OTHER ==
[~2025-03-01] VITALS: Ht 167.6 cm; Wt 78.0 kg
[2025-03-01 17:18] LABS: BASO # 0.0 10^3/uL (0.0-0.2); BASO % 0.5 % (0.0-1.0); EOS # 0.1 10^3/uL (0.0-0.5); EOS % 2.2 % (0.0-3.0); LYMPH # 1.0 10^3/uL (1.5-5.0); LYMPH % 15.2 % (24.0-44.0); MONO # 0.5 10^3/uL (0.0-0.8); MONO % 8.5 % (2.0-8.0); NEUTROPHILS # 4.7 10^3/uL (1.5-8.5); NEUTROPHILS % 73.3 % (36.0-66.0); PLATELET COUNT, AUTOMATED 187 10^3/uL (150-450)
[2025-03-01 17:20] LABS: ALT/SGPT 26 U/L (7.0-40); AST/SGOT 24 U/L (<34); CALCIUM LEVEL 10.1 MG/DL (8.3-10.6); CARBON DIOXIDE LEVEL 29 MMOL/L (20-31); CHLORIDE LEVEL 102 MMOL/L (98-107); CREATININE FOR GFR 0.57 MG/DL (0.55-1.30); GLOMERULAR FILTRATION RATE > 90.0 (>45); POTASSIUM SERUM 4.3 MMOL/L (3.5-5.1); SODIUM LEVEL 137 MMOL/L (136-145)
[2025-03-01] MEDS: ALBUTEROL SULFATE 2.5 MG/0.5 ML INH CONCENTRATE NEB SOLN INH ONE (19:02)
[2025-03-01] MEDS: IPRATROPIUM 0.5 MG/ALBUTEROL 2.5 MG INH SOL UD 3 ML NEB ONE (19:02)
[2025-03-01 20:25] VITALS: O2SAT 91
[2025-03-01] MEDS: ACETAMINOPHEN *IV* 1,000 MG in IV 1 EA IV ONE (20:30)
[2025-03-01 21:58] LABS: MAGNESIUM LEVEL 1.3 MG/DL (1.8-2.4)
[2025-03-01] MEDS ORDERED: DEXTROSE 50% 50 ML SYRINGE IV PRN (22:15)
[2025-03-01] MEDS ORDERED: GLUCAGON INJ 1 MG VIAL SC PRN (22:15)
[2025-03-01] MEDS ORDERED: GLUCOSE 4 GM CHEW PO PRN (22:15)
[2025-03-01] MEDS ORDERED: ACETAMINOPHEN 325 MG TAB PO PRN (22:25)
[2025-03-02] MEDS: INSULIN LISPRO (NovoLOG) PER UNIT SC SCH ×4 (00:55→17:54)
[2025-03-02] MEDS: LanTUS (INSULIN GLARGINE INJ) 1 UNITS/0.01 ML SC SCH ×2 (00:56→21:08)
[2025-03-02] MEDS: predniSONE 20 MG TAB PO SCH (00:56)
[2025-03-02] MEDS: MAG SULF 1GM/100ML (MAG RUN) 1 GM in IV 1 EA IV SCH (00:57)
[2025-03-02] MEDS: ONDANSETRON 4MG/2ML VIAL IV PRN (01:04)
[2025-03-02] MEDS: HYDROMORPHONE HCL 0.5 MG/0.5 ML SYRINGE IV PRN ×2 (04:02→21:01)
[2025-03-02] MEDS: LEVALBUTEROL 1.25 MG 0.5ML CONCENTRATE NEB NEB SCH (04:13)
[2025-03-02 06:49] LABS: PLATELET COUNT, AUTOMATED 199 10^3/uL (150-450)
[2025-03-02 07:20] LABS: CALCIUM LEVEL 9.5 MG/DL (8.3-10.6); CARBON DIOXIDE LEVEL 24 MMOL/L (20-31); CHLORIDE LEVEL 101 MMOL/L (98-107); CREATININE FOR GFR 0.46 MG/DL (0.55-1.30); GLOMERULAR FILTRATION RATE > 90.0 (>45); POTASSIUM SERUM 4.4 MMOL/L (3.5-5.1); SODIUM LEVEL 134 MMOL/L (136-145)
[2025-03-02] MEDS: ENOXAPARIN 40 MG/0.4 ML SYRINGE (J1650 PER 10MG) SC SCH (08:19)
[2025-03-02] MEDS ORDERED: MUPI2OI TOP (08:30)
[2025-03-02] MEDS ORDERED: LANTINJ4 SC ×2 (08:30)
[2025-03-02] MEDS ORDERED: MAGN400T2 PO (08:30)
[2025-03-02] MEDS ORDERED: ONDA4INJ4 IM (08:30)
[2025-03-02] MEDS ORDERED: MIRA3350 PO (08:30)
[2025-03-02] MEDS ORDERED: IPRA0.00 INH (08:30)
[2025-03-02] MEDS ORDERED: REFR1GEL OU (08:30)
[2025-03-02] MEDS ORDERED: LOTE0.5G OU (08:30)
[2025-03-02] MEDS ORDERED: HOME MED LIST COMPLETE! XX SCH (08:35)
[2025-03-02] MEDS: HumuLIN R (REGULAR) INSULIN (NovoLIN R) **100 U/ML** PER UNIT IV STA (10:55)
[2025-03-02 17:02] VITALS: BP 124/62; TEMP 98.3; O2SAT 95
[2025-03-02 20:15] VITALS: BP 119/65; TEMP 98.3; O2SAT 94
[2025-03-02] MEDS: ATORVASTATIN 20 MG TAB PO SCH (21:00)
[2025-03-02] MEDS: SUCRALFATE 1 GM TAB PO SCH (21:00)
[2025-03-02] MEDS: AMITRIPTYLINE 50MG TAB PO SCH (21:00)
[2025-03-02] MEDS: SIMETHICONE 80MG CHEW TAB PO SCH (21:00)
[2025-03-03 04:32] VITALS: BP 112/56; TEMP 98.1; O2SAT 95
[2025-03-03 07:48] LABS: ESTIMATED AVERAGE GLUCOSE 217.0 MG/DL (60-110)
[2025-03-03 08:12] LABS: CALCIUM LEVEL 9.7 MG/DL (8.3-10.6); CARBON DIOXIDE LEVEL 28 MMOL/L (20-31); CHLORIDE LEVEL 105 MMOL/L (98-107); CREATININE FOR GFR 0.53 MG/DL (0.55-1.30); GLOMERULAR FILTRATION RATE > 90.0 (>45); MAGNESIUM LEVEL 1.6 MG/DL (1.8-2.4); POTASSIUM SERUM 4.2 MMOL/L (3.5-5.1); SODIUM LEVEL 139 MMOL/L (136-145)
[2025-03-03] MEDS: AMITRIPTYLINE 50MG TAB PO SCH (09:07)
[2025-03-03 12:00] VITALS: BP 117/59; TEMP 97.5; O2SAT 88
[2025-03-03] MEDS: MAG SULF 1GM/100ML (MAG RUN) 1 GM in IV 1 EA IV SCH (13:56)
[2025-03-03] MEDS ORDERED: DEXTROMETHORPHAN 60 MG/10 ML SUSP 90 ML BTL PO PRN (18:05)
[2025-03-03 20:05] VITALS: BP 109/77; TEMP 98.6; O2SAT 87
[2025-03-04 04:30] VITALS: BP 109/52; TEMP 98.6; O2SAT 85
[2025-03-04 08:45] LABS: CALCIUM LEVEL 9.0 MG/DL (8.3-10.6); CARBON DIOXIDE LEVEL 28 MMOL/L (20-31); CHLORIDE LEVEL 105 MMOL/L (98-107); CREATININE FOR GFR 0.50 MG/DL (0.55-1.30); GLOMERULAR FILTRATION RATE > 90.0 (>45); MAGNESIUM LEVEL 1.9 MG/DL (1.8-2.4); POTASSIUM SERUM 4.0 MMOL/L (3.5-5.1); SODIUM LEVEL 139 MMOL/L (136-145)
[2025-03-04] MEDS: predniSONE 20 MG TAB PO SCH (09:53)
[2025-03-04] MEDS ORDERED: PRED10PA2 PO (11:14)
[2025-03-04 11:16] VITALS: BP 122/58; TEMP 98.1; O2SAT 90
[2025-03-04 14:35] VITALS: O2SAT 88
[2025-03-05] MEDS ORDERED: IPRA0.00 NEB (07:24)
== END 2025-03-04 15:57 | disposition home or self-care (01) | DRG 141 ==
LOC: EDSEX 16:31 → EDBD 16:31 → M ED 16:31 → M ED INP 16:32 → OBSVTOIN 03-02 11:49 → M MS4PR 03-02 16:55
PROVIDERS: ADMIT Internal Medicine; ATTEND Student in an Organized Health Care Education/Training Program
DX: J45.901 Unspecified asthma with (acute) exacerbation (principal); E11.65 Type 2 diabetes mellitus with hyperglycemia; E83.42 Hypomagnesemia; B97.89 Other viral agents as the cause of diseases classified elsewhere; B97.10 Unspecified enterovirus as the cause of diseases classified elsewhere; K21.9 Gastro-esophageal reflux disease without esophagitis; E78.5 Hyperlipidemia, unspecified; Z79.4 Long term (current) use of insulin; G89.29 Other chronic pain; R10.9 Unspecified abdominal pain; Z66 Do not resuscitate; Z79.899 Other long term (current) drug therapy; Z91.040 Latex allergy status; Z88.0 Allergy status to penicillin; Z88.2 Allergy status to sulfonamides; Z88.5 Allergy status to narcotic agent; Z91.018 Allergy to other foods; Z88.6 Allergy status to analgesic agent

== ENCOUNTER 2025-03-04 23:35 | Emergency (ER) | payer OTHER ==
[~2025-03-04] VITALS: Ht 167.6 cm; Wt 75.7 kg
[~2025-03-04 23:35] MED LIST changes: +LOTE0.5G OU; +MUPI2OI TOP; +PRED10PA2 PO; +REFR1GEL OU
[2025-03-05] MEDS: ONDANSETRON 4MG/2ML VIAL IV ONE (02:15)
[2025-03-05] MEDS: HYDROMORPHONE HCL 0.5 MG/0.5 ML SYRINGE IV PRN (02:16)
[2025-03-05] MEDS: IPRATROPIUM 0.5 MG/ALBUTEROL 2.5 MG INH SOL UD 3 ML NEB ONE ×2 (02:28)
[2025-03-05 03:50] LABS: BASO # 0.0 10^3/uL (0.0-0.2); BASO % 0.3 % (0.0-1.0); EOS # 0.0 10^3/uL (0.0-0.5); EOS % 0.0 % (0.0-3.0); LYMPH # 0.8 10^3/uL (1.5-5.0); LYMPH % 11.4 % (24.0-44.0); MONO # 0.3 10^3/uL (0.0-0.8); MONO % 3.7 % (2.0-8.0); NEUTROPHILS # 5.9 10^3/uL (1.5-8.5); NEUTROPHILS % 84.0 % (36.0-66.0); PLATELET COUNT, AUTOMATED 175 10^3/uL (150-450)
[2025-03-05 04:11] LABS: CALCIUM LEVEL 9.2 MG/DL (8.3-10.6); CARBON DIOXIDE LEVEL 22 MMOL/L (20-31); CHLORIDE LEVEL 103 MMOL/L (98-107); CREATININE FOR GFR 0.49 MG/DL (0.55-1.30); GLOMERULAR FILTRATION RATE > 90.0 (>45); MAGNESIUM LEVEL 1.7 MG/DL (1.8-2.4); POTASSIUM SERUM 4.5 MMOL/L (3.5-5.1); SODIUM LEVEL 136 MMOL/L (136-145)
[2025-03-05] MEDS: MAG SULF 1GM/100ML (MAG RUN) 1 GM in IV 1 EA IV ONE (05:33)
[2025-03-05] MEDS ORDERED: SODIUM CHLORIDE 0.9% INJ 10 ML SYR IV PRN (07:15)
[2025-03-05] MEDS ORDERED: HEPARIN LOCK FLUSH 100 UNITS/ML 3 ML SYRINGE IV PRN (07:15)
[2025-03-05] MEDS ORDERED: IPRA0.00 NEB (07:24)
[2025-03-05 07:50] VITALS: BP 133/71; TEMP 98.5; O2SAT 93
[2025-03-05] MEDS: HEPARIN LOCK FLUSH 100 UNITS/ML 3 ML SYRINGE IV SCH (08:05)
[2025-03-05] MEDS: SODIUM CHLORIDE 0.9% INJ 10 ML SYR IV SCH (08:05)
== END 2025-03-05 08:01 | disposition home or self-care (01) ==
LOC: M ED 23:35
DX: R53.83 Other fatigue (principal); B34.8 Other viral infections of unspecified site
CPT/HCPCS: 71046; 80048; 83605; 83735; 85025; 87486; 87581; 87633; 87798; 96365; 96375; 96376; 99285; J1100; J1171; J1642; J2405; J3475

== ENCOUNTER 2025-03-07 13:55 | Inpatient (IN) | payer OTHER ==
[~2025-03-07] VITALS: Ht 167.6 cm; Wt 76.4 kg
[2025-03-07 15:20] LABS: BASO # 0.0 10^3/uL (0.0-0.2); BASO % 0.0 % (0.0-1.0); EOS # 0.0 10^3/uL (0.0-0.5); EOS % 0.0 % (0.0-3.0); LYMPH # 0.4 10^3/uL (1.5-5.0); LYMPH % 5.2 % (24.0-44.0); MONO # 0.3 10^3/uL (0.0-0.8); MONO % 3.8 % (2.0-8.0); NEUTROPHILS # 6.8 10^3/uL (1.5-8.5); NEUTROPHILS % 90.6 % (36.0-66.0); PLATELET COUNT, AUTOMATED 211 10^3/uL (150-450)
[2025-03-07 15:54] LABS: ALT/SGPT 28 U/L (7.0-40); AST/SGOT 26 U/L (<34); CALCIUM LEVEL 9.5 MG/DL (8.3-10.6); CARBON DIOXIDE LEVEL 24 MMOL/L (20-31); CHLORIDE LEVEL 101 MMOL/L (98-107); CREATININE FOR GFR 0.50 MG/DL (0.55-1.30); GLOMERULAR FILTRATION RATE > 90.0 (>45); MAGNESIUM LEVEL 1.6 MG/DL (1.8-2.4); POTASSIUM SERUM 4.2 MMOL/L (3.5-5.1); SODIUM LEVEL 136 MMOL/L (136-145)
[2025-03-07 15:56] LABS: THYROXINE (T4) 7.4 UG/DL (4.5-10.9)
[2025-03-07] MEDS: HYDROMORPHONE HCL 0.5 MG/0.5 ML SYRINGE IV PRN ×2 (16:16→21:32)
[2025-03-07] MEDS: LEVALBUTEROL 1.25 MG 0.5ML CONCENTRATE NEB NEB PRN (16:27)
[2025-03-07] MEDS ORDERED: HOME MED LIST COMPLETE! XX SCH (16:45)
[2025-03-07] MEDS ORDERED: DEXTROSE 50% 50 ML SYRINGE IV PRN (20:10)
[2025-03-07] MEDS ORDERED: GLUCAGON INJ 1 MG VIAL SC PRN (20:10)
[2025-03-07] MEDS ORDERED: GLUCOSE 4 GM CHEW PO PRN (20:10)
[2025-03-07] MEDS: DOXYCYCLINE HYCLATE 100 MG TABLET PO SCH (21:34)
[2025-03-07] MEDS: guaiFENesin ER TABLET 600 MG TAB PO SCH (21:34)
[2025-03-07] MEDS: INSULIN LISPRO (NovoLOG) PER UNIT SC SCH (21:45)
[2025-03-07] MEDS: LanTUS (INSULIN GLARGINE INJ) 1 UNITS/0.01 ML SC SCH (21:45)
[2025-03-07] MEDS: IPRATROPIUM 0.5 MG/ALBUTEROL 2.5 MG INH SOL UD 3 ML NEB SCH (21:46)
[2025-03-07] MEDS: MAG SULF 1GM/100ML (MAG RUN) 1 GM in IV 1 EA IV SCH (22:15)
[2025-03-07] MEDS: cefTRIAXone SOD 1 GM in DEXTROSE 5% (D5W) ADV/MINI-BAG 50 ML IV SCH (22:15)
[2025-03-07] MEDS: NS (Normal Saline) 0.9% 1,000 ML IV ONE (22:42)
[2025-03-08 03:08] LABS: PLATELET COUNT, AUTOMATED 206 10^3/uL (150-450)
[2025-03-08 03:34] LABS: CALCIUM LEVEL 8.4 MG/DL (8.3-10.6); CARBON DIOXIDE LEVEL 24 MMOL/L (20-31); CHLORIDE LEVEL 105 MMOL/L (98-107); CREATININE FOR GFR 0.44 MG/DL (0.55-1.30); GLOMERULAR FILTRATION RATE > 90.0 (>45); MAGNESIUM LEVEL 2.2 MG/DL (1.8-2.4); POTASSIUM SERUM 4.5 MMOL/L (3.5-5.1); SODIUM LEVEL 138 MMOL/L (136-145)
[2025-03-08] MEDS: HYDROMORPHONE HCL 0.5 MG/0.5 ML SYRINGE IV PRN (04:36)
[2025-03-08 07:10] VITALS: O2SAT 92
[2025-03-08 08:10] VITALS: BP 140/68; TEMP 98.1; O2SAT 97
[2025-03-08] MEDS: INSULIN LISPRO (NovoLOG) PER UNIT SC SCH (09:46)
[2025-03-08] MEDS: ENOXAPARIN 40 MG/0.4 ML SYRINGE (J1650 PER 10MG) SC SCH (09:46)
[2025-03-08] MEDS: LanTUS (INSULIN GLARGINE INJ) 1 UNITS/0.01 ML SC SCH (09:47)
[2025-03-08] MEDS: amLODIPine 10 MG TAB PO ONE (09:50)
[2025-03-08] MEDS ORDERED: IPRATROPIUM 0.5 MG/ALBUTEROL 2.5 MG INH SOL UD 3 ML NEB PRN (10:50)
[2025-03-08] MEDS: NS (Normal Saline) 0.9% 1,000 ML IV SCH (11:17)
[2025-03-08] MEDS: IPRATROPIUM 0.5 MG/ALBUTEROL 2.5 MG INH SOL UD 3 ML NEB ONE (11:58)
[2025-03-08 12:00] VITALS: BP 165/78; TEMP 97.7; O2SAT 95
[2025-03-08] MEDS: ONDANSETRON 4MG/2ML VIAL IV PRN (12:54)
[2025-03-08] MEDS: guaiFENesin DM LIQ 10ML UD PO SCH (12:54)
[2025-03-08 20:15] VITALS: BP 121/56; TEMP 98.2; O2SAT 91
[2025-03-09 06:00] VITALS: BP 154/71; TEMP 98.3; O2SAT 95
[2025-03-09 11:53] VITALS: BP 137/65; TEMP 97.3; O2SAT 98
[2025-03-09] MEDS ORDERED: HYDROmorphone 2 MG TAB PO SCH (13:00)
[2025-03-09 13:34] LABS: C REACTIVE PROTEIN QUANTITATIV < 0.50 MG/DL (<1.0)
[2025-03-09] MEDS: FLUTICASONE PROPIONATE 0.05% NASAL SPRAY 16 GM NARES SCH (15:04)
[2025-03-09] MEDS: METOCLOPRAMIDE 10 MG TAB PO SCH (15:05)
[2025-03-09] MEDS: DICYCLOMINE 10 MG CAP PO SCH (15:05)
[2025-03-09] MEDS: SIMETHICONE 80MG CHEW TAB PO SCH (15:05)
[2025-03-09] MEDS: LACTULOSE 20 GM/30 ML SYRUP UDC PO SCH (15:05)
[2025-03-09] MEDS: SUCRALFATE 1 GM TAB PO SCH (17:36)
[2025-03-09] MEDS: SYMBICORT 160/4.5MCG INHALER 6GM INH SCH (19:46)
[2025-03-09 20:08] VITALS: BP 115/56; TEMP 98; O2SAT 96
[2025-03-09] MEDS: SENNA 8.6 MG TAB PO SCH (20:49)
[2025-03-09] MEDS: AMITRIPTYLINE 50MG TAB PO SCH (20:49)
[2025-03-09] MEDS: ATORVASTATIN 20 MG TAB PO SCH (20:49)
[2025-03-09] MEDS: LORATADINE 10 MG TAB PO SCH (20:49)
[2025-03-09] MEDS: MAGNESIUM OXIDE 400 MG TAB PO SCH (20:50)
[2025-03-09] MEDS: MIRALAX *UNIT DOSE* 17 GM PACKET PO SCH (20:50)
[2025-03-09] MEDS ORDERED: ONDANSETRON 4MG/2ML VIAL IM SCH (21:00)
[2025-03-10 04:12] VITALS: BP 121/55; TEMP 98.3; O2SAT 94
[2025-03-10] MEDS: AMITRIPTYLINE 50MG TAB PO SCH (08:31)
[2025-03-10] MEDS: CEFDINIR 300 MG CAP PO SCH (08:33)
[2025-03-10 12:00] VITALS: BP 135/63; TEMP 100; O2SAT 94
[2025-03-10] MEDS: BUDESONIDE 180 MCG INHALER INH SCH (19:24)
[2025-03-10 20:00] VITALS: BP 132/61; TEMP 98.6; O2SAT 93
[2025-03-11 06:00] VITALS: BP 148/70; TEMP 97.9; O2SAT 90
[2025-03-11] MEDS: MONTELUKAST 10 MG TAB PO SCH (10:00)
[2025-03-11 10:14] LABS: BASO # 0.0 10^3/uL (0.0-0.2); BASO % 0.1 % (0.0-1.0); EOS # 0.0 10^3/uL (0.0-0.5); EOS % 0.0 % (0.0-3.0); LYMPH # 0.3 10^3/uL (1.5-5.0); LYMPH % 4.0 % (24.0-44.0); MONO # 0.4 10^3/uL (0.0-0.8); MONO % 5.0 % (2.0-8.0); NEUTROPHILS # 7.0 10^3/uL (1.5-8.5); NEUTROPHILS % 89.1 % (36.0-66.0); PLATELET COUNT, AUTOMATED 198 10^3/uL (150-450)
[2025-03-11 10:40] LABS: C REACTIVE PROTEIN QUANTITATIV < 0.50 MG/DL (<1.0); CALCIUM LEVEL 8.8 MG/DL (8.3-10.6); CARBON DIOXIDE LEVEL 26 MMOL/L (20-31); CHLORIDE LEVEL 102 MMOL/L (98-107); CREATININE FOR GFR 0.44 MG/DL (0.55-1.30); GLOMERULAR FILTRATION RATE > 90.0 (>45); POTASSIUM SERUM 4.2 MMOL/L (3.5-5.1); SODIUM LEVEL 137 MMOL/L (136-145)
[2025-03-11 11:47] VITALS: BP 156/72; TEMP 100.1; O2SAT 93
[2025-03-11] MEDS: predniSONE 20 MG TAB PO SCH (17:21)
[2025-03-11] MEDS: BUDESONIDE 0.5 MG/2 ML INHALATION SUSPENSION INH SCH (19:45)
[2025-03-11 20:05] VITALS: BP 121/58; TEMP 97.9; O2SAT 93
[2025-03-12 04:06] VITALS: BP 147/67; TEMP 98.7; O2SAT 91
[2025-03-12 13:16] VITALS: BP 138/65; TEMP 100.3; TEMP 98.4; O2SAT 92
[2025-03-12 19:59] VITALS: BP 134/72; TEMP 98.2; O2SAT 94
[2025-03-12 23:35] LABS: BASO # 0.0 10^3/uL (0.0-0.2); BASO % 0.1 % (0.0-1.0); EOS # 0.0 10^3/uL (0.0-0.5); EOS % 0.0 % (0.0-3.0); LYMPH # 0.3 10^3/uL (1.5-5.0); LYMPH % 2.7 % (24.0-44.0); MONO # 0.7 10^3/uL (0.0-0.8); MONO % 5.7 % (2.0-8.0); NEUTROPHILS # 10.8 10^3/uL (1.5-8.5); NEUTROPHILS % 89.8 % (36.0-66.0); PLATELET COUNT, AUTOMATED 205 10^3/uL (150-450)
[2025-03-13] VITALS (11 sets, daily range): BP systolic 123–180; BP diastolic 54–82; TEMP 97.1–100.5; O2SAT 82–96
[2025-03-13 00:01] LABS: CALCIUM LEVEL 8.6 MG/DL (8.3-10.6); CARBON DIOXIDE LEVEL 26 MMOL/L (20-31); CHLORIDE LEVEL 106 MMOL/L (98-107); CREATININE FOR GFR 0.44 MG/DL (0.55-1.30); GLOMERULAR FILTRATION RATE > 90.0 (>45); POTASSIUM SERUM 4.5 MMOL/L (3.5-5.1); SODIUM LEVEL 142 MMOL/L (136-145)
[2025-03-13] MEDS: NS (Normal Saline) 0.9% 1,000 ML IV SCH (00:26)
[2025-03-13 06:05] LABS: BASO # 0.0 10^3/uL (0.0-0.2); BASO % 0.1 % (0.0-1.0); EOS # 0.0 10^3/uL (0.0-0.5); EOS % 0.0 % (0.0-3.0); LYMPH # 0.5 10^3/uL (1.5-5.0); LYMPH % 5.0 % (24.0-44.0); MONO # 0.5 10^3/uL (0.0-0.8); MONO % 5.0 % (2.0-8.0); NEUTROPHILS # 8.1 10^3/uL (1.5-8.5); NEUTROPHILS % 87.5 % (36.0-66.0); PLATELET COUNT, AUTOMATED 182 10^3/uL (150-450)
[2025-03-13 06:37] LABS: CALCIUM LEVEL 8.5 MG/DL (8.3-10.6); CARBON DIOXIDE LEVEL 28 MMOL/L (20-31); CHLORIDE LEVEL 107 MMOL/L (98-107); CREATININE FOR GFR 0.39 MG/DL (0.55-1.30); GLOMERULAR FILTRATION RATE > 90.0 (>45); POTASSIUM SERUM 4.4 MMOL/L (3.5-5.1); SODIUM LEVEL 144 MMOL/L (136-145)
[2025-03-13] MEDS: READI-CAT 2 PO SCH (09:01)
[2025-03-13] MEDS: LanTUS (INSULIN GLARGINE INJ) 1 UNITS/0.01 ML SC SCH (09:03)
[2025-03-13] MEDS: SENNOSIDES/DOCUSATE SODIUM 8.6 MG/50MG TAB PO SCH (09:07)
[2025-03-13] MEDS: predniSONE 20 MG TAB PO SCH (09:09)
[2025-03-13] MEDS: LACTULOSE 20 GM/30 ML SYRUP UDC PO SCH (09:13)
[2025-03-13 09:17] LABS: ESTIMATED AVERAGE GLUCOSE 232.0 MG/DL (60-110)
[2025-03-13] MEDS ORDERED: LR 1,000 ML IV SCH (13:00)
[2025-03-13] MEDS: LR 1,000 ML IV ONE (13:26)
[2025-03-13] MEDS: METOPROLOL TART 25 MG TABLET PO SCH (14:53)
[2025-03-13 14:57] LABS: ABG BASE EXCESS 0.0 (-2.0-2.0); ABG HCO3 25.0 MMOL/L (22.0-26.0); ABG O2 SATURATION 95.2 % (95.0-99.0); ABG PARTIAL PRESSURE CO2 42.3 mmHg (35.0-45.0); ABG PARTIAL PRESSURE O2 79.0 mmHg (75.0-100.0); ABG STANDARD HCO3 24.4 MMOL/L. (22.0-26.0); ABG TOTAL CO2 26.3 MMOL/L (23.0-31.0); ABG pH (ARTERIAL) 7.390 UNITS (7.350-7.450)
[2025-03-13] MEDS: IPRATROPIUM 0.5 MG/ALBUTEROL 2.5 MG INH SOL UD 3 ML NEB SCH (15:01)
[2025-03-13 15:20] LABS: CK-MB VALUE MASS 5.3 NG/ML (<3.6)
[2025-03-13 15:21] LABS: C REACTIVE PROTEIN QUANTITATIV < 0.50 MG/DL (<1.0); CPK CREATINE PHOSPHOKINASE 61 U/L (34-145); MB/CK RELATIVE INDEX 8.68 (< OR =4)
[2025-03-13] MEDS: FUROSEMIDE 40 MG/4 ML VIAL IV SCH (15:45)
[2025-03-13] MEDS ORDERED: MEROPENEM 1 GM in IV 1 EA IV SCH (15:50)
[2025-03-13] MEDS ORDERED: FUROSEMIDE 20 MG/2 ML VIAL IV ONE (16:00)
[2025-03-13] MEDS: CEFEPIME HCL 2 GM in DEXTROSE 5% (D5W) ADV/MINI-BAG 50 ML IV SCH (16:55)
[2025-03-13] MEDS ORDERED: ENOXAPARIN 80 MG/0.8 ML SYRINGE (J1650 PER 10MG) SC SCH (18:00)
[2025-03-13] MEDS: KETOROLAC 30 MG/ML 1 ML VIAL IV ONE (18:50)
[2025-03-13] MEDS: ACETAMINOPHEN *IV* 1,000 MG in IV 1 EA IV ONE (18:51)
[2025-03-13] MEDS: ALBUTEROL SULFATE 2.5 MG/0.5 ML INH CONCENTRATE NEB SOLN INH SCH (19:45)
[2025-03-13] MEDS: SODIUM CHLORIDE HYPERTONIC 3% 4ML NEB SOL INH SCH (19:46)
[2025-03-14] VITALS (23 sets, daily range): BP systolic 129–160; BP diastolic 60–74; TEMP 97–98.3; O2SAT 91–100
[2025-03-14] MEDS: ACETAMINOPHEN 325 MG TAB PO ONE (05:28)
[2025-03-14 06:12] LABS: BASO # 0.0 10^3/uL (0.0-0.2); BASO % 0.0 % (0.0-1.0); EOS # 0.0 10^3/uL (0.0-0.5); EOS % 0.0 % (0.0-3.0); LYMPH # 0.4 10^3/uL (1.5-5.0); LYMPH % 4.8 % (24.0-44.0); MONO # 0.4 10^3/uL (0.0-0.8); MONO % 5.0 % (2.0-8.0); NEUTROPHILS # 7.3 10^3/uL (1.5-8.5); NEUTROPHILS % 88.6 % (36.0-66.0); PLATELET COUNT, AUTOMATED 202 10^3/uL (150-450)
[2025-03-14 06:46] LABS: CALCIUM LEVEL 8.5 MG/DL (8.3-10.6); CARBON DIOXIDE LEVEL 36 MMOL/L (20-31); CHLORIDE LEVEL 94 MMOL/L (98-107); CREATININE FOR GFR 0.48 MG/DL (0.55-1.30); GLOMERULAR FILTRATION RATE > 90.0 (>45); POTASSIUM SERUM 3.0 MMOL/L (3.5-5.1); SODIUM LEVEL 141 MMOL/L (136-145)
[2025-03-14] MEDS: POTASSIUM CHLORIDE 10MEQ SR TABLET PO ONE (08:15)
[2025-03-14 08:25] LABS: MAGNESIUM LEVEL 1.4 MG/DL (1.8-2.4)
[2025-03-14] MEDS: ENOXAPARIN 40 MG/0.4 ML SYRINGE (J1650 PER 10MG) SC SCH (09:28)
[2025-03-14] MEDS: MAG SULF 1GM/100ML (MAG RUN) 1 GM in IV 1 EA IV ONE (09:36)
[2025-03-14] MEDS: KETOROLAC 30 MG/ML 1 ML VIAL IV ONE ×2 (10:37→18:59)
[2025-03-14] MEDS: KCL 10MEQ/100ML SWI (KRUN) 10 MEQ in IV 1 EA IV SCH ×2 (12:29→20:47)
[2025-03-14] MEDS: PANTOPRAZOLE 40MG TAB PO SCH (13:20)
[2025-03-14] MEDS: ACETAMINOPHEN *IV* 1,000 MG in IV 1 EA IV ONE ×3 (15:02→23:35)
[2025-03-14 17:18] LABS: MAGNESIUM LEVEL 1.8 MG/DL (1.8-2.4); POTASSIUM SERUM 3.4 MMOL/L (3.5-5.1)
[2025-03-15] VITALS (36 sets, daily range): BP systolic 116–148; BP diastolic 59–73; TEMP 96.7–98.6; O2SAT 93–99
[2025-03-15] MEDS: KETOROLAC 30 MG/ML 1 ML VIAL IV ONE (03:50)
[2025-03-15 07:01] LABS: BASO # 0.0 10^3/uL (0.0-0.2); BASO % 0.1 % (0.0-1.0); EOS # 0.0 10^3/uL (0.0-0.5); EOS % 0.0 % (0.0-3.0); LYMPH # 0.4 10^3/uL (1.5-5.0); LYMPH % 5.2 % (24.0-44.0); MONO # 0.5 10^3/uL (0.0-0.8); MONO % 5.7 % (2.0-8.0); NEUTROPHILS # 7.1 10^3/uL (1.5-8.5); NEUTROPHILS % 87.8 % (36.0-66.0); PLATELET COUNT, AUTOMATED 198 10^3/uL (150-450)
[2025-03-15 07:24] LABS: CALCIUM LEVEL 8.6 MG/DL (8.3-10.6); CARBON DIOXIDE LEVEL 36 MMOL/L (20-31); CHLORIDE LEVEL 98 MMOL/L (98-107); CREATININE FOR GFR 0.50 MG/DL (0.55-1.30); GLOMERULAR FILTRATION RATE > 90.0 (>45); POTASSIUM SERUM 4.3 MMOL/L (3.5-5.1); SODIUM LEVEL 141 MMOL/L (136-145)
[2025-03-15] MEDS ORDERED: PANTOPRAZOLE 40MG TAB PO SCH (09:00)
[2025-03-15] MEDS: ACETAMINOPHEN *IV* 1,000 MG in IV 1 EA IV PRN (11:51)
[2025-03-15] MEDS: ALBUTEROL SULFATE 2.5 MG/0.5 ML INH CONCENTRATE NEB SOLN NEB ONE (15:31)
[2025-03-15] MEDS ORDERED: PILL CUTTER 1 EACH XX PRN (19:05)
[2025-03-15] MEDS: HYDROmorphone 2 MG TAB PO ONE (20:39)
[2025-03-15] MEDS: FUROSEMIDE 40 MG/4 ML VIAL IV ONE (20:58)
[2025-03-16] VITALS (29 sets, daily range): BP systolic 113–149; BP diastolic 57–65; PULSE 92; TEMP 96.7–99.3; O2SAT 88–99
[2025-03-16 05:59] LABS: BASO # 0.0 10^3/uL (0.0-0.2); BASO % 0.0 % (0.0-1.0); EOS # 0.0 10^3/uL (0.0-0.5); EOS % 0.0 % (0.0-3.0); LYMPH # 0.3 10^3/uL (1.5-5.0); LYMPH % 3.8 % (24.0-44.0); MONO # 0.4 10^3/uL (0.0-0.8); MONO % 4.8 % (2.0-8.0); NEUTROPHILS # 7.2 10^3/uL (1.5-8.5); NEUTROPHILS % 90.4 % (36.0-66.0); PLATELET COUNT, AUTOMATED 187 10^3/uL (150-450)
[2025-03-16 06:24] LABS: CALCIUM LEVEL 8.2 MG/DL (8.3-10.6); CARBON DIOXIDE LEVEL 32 MMOL/L (20-31); CHLORIDE LEVEL 99 MMOL/L (98-107); CREATININE FOR GFR 0.46 MG/DL (0.55-1.30); GLOMERULAR FILTRATION RATE > 90.0 (>45); POTASSIUM SERUM 4.2 MMOL/L (3.5-5.1); SODIUM LEVEL 139 MMOL/L (136-145)
[2025-03-16] MEDS: HYDROmorphone 2 MG TAB PO PRN (10:05)
[2025-03-16] MEDS: THIAMINE INJection 500 MG in NS 100 ML IV SCH (16:28)
[2025-03-16] MEDS: LanTUS (INSULIN GLARGINE INJ) 1 UNITS/0.01 ML SC SCH (20:48)
[2025-03-17] VITALS (36 sets, daily range): BP systolic 105–165; BP diastolic 57–75; TEMP 97–98.2; O2SAT 84–100
[2025-03-17 05:55] LABS: BASO # 0.0 10^3/uL (0.0-0.2); BASO % 0.1 % (0.0-1.0); EOS # 0.0 10^3/uL (0.0-0.5); EOS % 0.1 % (0.0-3.0); LYMPH # 1.2 10^3/uL (1.5-5.0); LYMPH % 8.4 % (24.0-44.0); MONO # 0.8 10^3/uL (0.0-0.8); MONO % 6.1 % (2.0-8.0); NEUTROPHILS # 11.6 10^3/uL (1.5-8.5); NEUTROPHILS % 84.5 % (36.0-66.0); PLATELET COUNT, AUTOMATED 187 10^3/uL (150-450)
[2025-03-17 06:24] LABS: CALCIUM LEVEL 8.7 MG/DL (8.3-10.6); CARBON DIOXIDE LEVEL 32 MMOL/L (20-31); CHLORIDE LEVEL 104 MMOL/L (98-107); CREATININE FOR GFR 0.53 MG/DL (0.55-1.30); GLOMERULAR FILTRATION RATE > 90.0 (>45); POTASSIUM SERUM 3.5 MMOL/L (3.5-5.1); SODIUM LEVEL 141 MMOL/L (136-145)
[2025-03-17] MEDS ORDERED: POTASSIUM CHLORIDE 10MEQ SR TABLET PO ONE (06:55)
[2025-03-17] MEDS: IPRATROPIUM 0.5 MG/ALBUTEROL 2.5 MG INH SOL UD 3 ML NEB PRN (10:01)
[2025-03-17] MEDS: KCL 10MEQ/100ML SWI (KRUN) 10 MEQ in IV 1 EA IV SCH ×2 (10:56→13:30)
[2025-03-18] VITALS (28 sets, daily range): BP systolic 128–178; BP diastolic 65–82; TEMP 97.1–98.3; O2SAT 88–97
[2025-03-18 05:37] LABS: BASO # 0.0 10^3/uL (0.0-0.2); BASO % 0.1 % (0.0-1.0); EOS # 0.0 10^3/uL (0.0-0.5); EOS % 0.1 % (0.0-3.0); LYMPH # 1.1 10^3/uL (1.5-5.0); LYMPH % 7.9 % (24.0-44.0); MONO # 0.6 10^3/uL (0.0-0.8); MONO % 4.5 % (2.0-8.0); NEUTROPHILS # 12.4 10^3/uL (1.5-8.5); NEUTROPHILS % 86.9 % (36.0-66.0); PLATELET COUNT, AUTOMATED 164 10^3/uL (150-450)
[2025-03-18 05:59] LABS: CALCIUM LEVEL 8.4 MG/DL (8.3-10.6); CARBON DIOXIDE LEVEL 28 MMOL/L (20-31); CHLORIDE LEVEL 104 MMOL/L (98-107); CREATININE FOR GFR 0.40 MG/DL (0.55-1.30); GLOMERULAR FILTRATION RATE > 90.0 (>45); POTASSIUM SERUM 3.6 MMOL/L (3.5-5.1); SODIUM LEVEL 141 MMOL/L (136-145)
[2025-03-18] MEDS: predniSONE 20 MG TAB PO SCH (07:57)
[2025-03-18] MEDS: FUROSEMIDE 20 MG/2 ML VIAL IV ONE (17:06)
[2025-03-18] MEDS: SODIUM CHLORIDE HYPERTONIC 3% 4ML NEB SOL INH SCH (19:29)
[2025-03-18] MEDS: BENZONATATE 100 MG CAPSULE PO PRN (22:12)
[2025-03-18] MEDS: RAMELTEON 8 MG TAB PO PRN (23:25)
[2025-03-19] VITALS (28 sets, daily range): BP systolic 119–168; BP diastolic 63–78; TEMP 97–97.8; O2SAT 88–99
[2025-03-19 06:49] LABS: BASO # 0.0 10^3/uL (0.0-0.2); BASO % 0.1 % (0.0-1.0); EOS # 0.0 10^3/uL (0.0-0.5); EOS % 0.1 % (0.0-3.0); LYMPH # 0.8 10^3/uL (1.5-5.0); LYMPH % 5.9 % (24.0-44.0); MONO # 0.5 10^3/uL (0.0-0.8); MONO % 4.0 % (2.0-8.0); NEUTROPHILS # 11.4 10^3/uL (1.5-8.5); NEUTROPHILS % 89.6 % (36.0-66.0); PLATELET COUNT, AUTOMATED 133 10^3/uL (150-450)
[2025-03-19 07:20] LABS: CALCIUM LEVEL 8.3 MG/DL (8.3-10.6); CARBON DIOXIDE LEVEL 28 MMOL/L (20-31); CHLORIDE LEVEL 104 MMOL/L (98-107); CREATININE FOR GFR 0.42 MG/DL (0.55-1.30); GLOMERULAR FILTRATION RATE > 90.0 (>45); POTASSIUM SERUM 3.4 MMOL/L (3.5-5.1); SODIUM LEVEL 141 MMOL/L (136-145)
[2025-03-19] MEDS: KCL 10MEQ/100ML SWI (KRUN) 10 MEQ in IV 1 EA IV SCH (18:49)
[2025-03-19] MEDS: BENZONATATE 100 MG CAPSULE PO SCH (20:25)
[2025-03-20] VITALS (29 sets, daily range): BP systolic 129–150; BP diastolic 60–70; TEMP 97.1–98.7; O2SAT 90–100
[2025-03-20 06:45] LABS: BASO # 0.0 10^3/uL (0.0-0.2); BASO % 0.1 % (0.0-1.0); EOS # 0.1 10^3/uL (0.0-0.5); EOS % 0.4 % (0.0-3.0); LYMPH # 1.3 10^3/uL (1.5-5.0); LYMPH % 10.3 % (24.0-44.0); MONO # 0.5 10^3/uL (0.0-0.8); MONO % 4.4 % (2.0-8.0); NEUTROPHILS # 10.2 10^3/uL (1.5-8.5); NEUTROPHILS % 84.2 % (36.0-66.0); PLATELET COUNT, AUTOMATED 159 10^3/uL (150-450)
[2025-03-20 07:12] LABS: CALCIUM LEVEL 8.7 MG/DL (8.3-10.6); CARBON DIOXIDE LEVEL 31 MMOL/L (20-31); CHLORIDE LEVEL 102 MMOL/L (98-107); CREATININE FOR GFR 0.42 MG/DL (0.55-1.30); GLOMERULAR FILTRATION RATE > 90.0 (>45); POTASSIUM SERUM 3.7 MMOL/L (3.5-5.1); SODIUM LEVEL 139 MMOL/L (136-145)
[2025-03-20] MEDS: THIAMINE 200MG 2ML VIAL IV SCH ×2 (12:53→17:07)
[2025-03-20] MEDS: DEXTROMETHORPHAN 60 MG/10 ML SUSP 90 ML BTL PO SCH (22:20)
[2025-03-20] MEDS: LanTUS (INSULIN GLARGINE INJ) 1 UNITS/0.01 ML SC SCH (22:24)
[2025-03-21] VITALS (38 sets, daily range): BP systolic 126–154; BP diastolic 60–75; TEMP 96.5–97.5; O2SAT 85–100
[2025-03-21] MEDS: ACETYLCYSTEINE 20% 4 ML VIAL (200 MG/ML) INH ONE (10:03)
[2025-03-21] MEDS: guaiFENesin DM *SUGAR FREE* 5 ML ORALSYRG PO PRN (14:32)
[2025-03-22] VITALS (17 sets, daily range): BP systolic 131–169; BP diastolic 62–77; PULSE 92–103; TEMP 96.7–98.5; O2SAT 88–98
[2025-03-22 06:49] LABS: BASO # 0.0 10^3/uL (0.0-0.2); BASO % 0.1 % (0.0-1.0); EOS # 0.1 10^3/uL (0.0-0.5); EOS % 0.5 % (0.0-3.0); LYMPH # 1.4 10^3/uL (1.5-5.0); LYMPH % 15.7 % (24.0-44.0); MONO # 0.5 10^3/uL (0.0-0.8); MONO % 5.2 % (2.0-8.0); NEUTROPHILS # 7.1 10^3/uL (1.5-8.5); NEUTROPHILS % 78.2 % (36.0-66.0); PLATELET COUNT, AUTOMATED 181 10^3/uL (150-450)
[2025-03-22 07:40] LABS: CALCIUM LEVEL 9.3 MG/DL (8.3-10.6); CARBON DIOXIDE LEVEL 30 MMOL/L (20-31); CHLORIDE LEVEL 98 MMOL/L (98-107); CREATININE FOR GFR 0.44 MG/DL (0.55-1.30); GLOMERULAR FILTRATION RATE > 90.0 (>45); POTASSIUM SERUM 3.7 MMOL/L (3.5-5.1); SODIUM LEVEL 137 MMOL/L (136-145)
[2025-03-23 06:49] VITALS: BP 148/72; TEMP 98.1; O2SAT 92
[2025-03-23] MEDS ORDERED: PRED10TA2 PO (09:06)
[2025-03-23] MEDS ORDERED: ALBU8.5H INH (09:06)
[2025-03-23] MEDS ORDERED: SYMB16INH INH (09:06)
[2025-03-23] MEDS ORDERED: ALBU2.5V10 INH (09:06)
[2025-03-23] MEDS ORDERED: IPRA0.00 INH (09:07)
[2025-03-23 12:00] VITALS: BP 138/61; TEMP 98.4; O2SAT 93
[2025-03-23 20:08] VITALS: BP 123/62; TEMP 97.9; O2SAT 93
[2025-03-24 03:44] VITALS: BP 140/61; TEMP 98.1; O2SAT 92
[2025-03-24] MEDS: DOXYCYCLINE HYCLATE 100 MG TABLET PO SCH (08:59)
[2025-03-24] MEDS: CEFPODOXIME PROXETIL 200 MG TABLET PO SCH (09:00)
[2025-03-24] MEDS: SODIUM CHLORIDE 0.9% INJ 10 ML SYR IV SCH (09:00)
[2025-03-24 12:00] VITALS: BP_SYST 151; BP_DIAS 20; BP_DIAS 70; TEMP 98.2; O2SAT 98
[2025-03-24] MEDS: HEPARIN LOCK FLUSH 100 UNITS/ML 3 ML SYRINGE IV ONE (14:24)
[2025-03-24 20:00] VITALS: BP 120/63; TEMP 97.7; O2SAT 94
[2025-03-24 20:34] VITALS: O2SAT 95
[2025-03-24] MEDS: THIAMINE 100 MG TAB PO SCH (21:14)
[2025-03-25 07:20] LABS: BASO # 0.0 10^3/uL (0.0-0.2); BASO % 0.0 % (0.0-1.0); EOS # 0.1 10^3/uL (0.0-0.5); EOS % 0.7 % (0.0-3.0); LYMPH # 1.3 10^3/uL (1.5-5.0); LYMPH % 18.6 % (24.0-44.0); MONO # 0.3 10^3/uL (0.0-0.8); MONO % 3.5 % (2.0-8.0); NEUTROPHILS # 5.5 10^3/uL (1.5-8.5); NEUTROPHILS % 76.8 % (36.0-66.0); PLATELET COUNT, AUTOMATED 170 10^3/uL (150-450)
[2025-03-25 07:41] LABS: CALCIUM LEVEL 8.9 MG/DL (8.3-10.6); CARBON DIOXIDE LEVEL 30 MMOL/L (20-31); CHLORIDE LEVEL 101 MMOL/L (98-107); CREATININE FOR GFR 0.45 MG/DL (0.55-1.30); GLOMERULAR FILTRATION RATE > 90.0 (>45); POTASSIUM SERUM 4.0 MMOL/L (3.5-5.1); SODIUM LEVEL 139 MMOL/L (136-145)
[2025-03-25 12:39] VITALS: BP 136/69; TEMP 98.4; O2SAT 94
[2025-03-25 14:57] VITALS: BP 136/69; TEMP 98.4; O2SAT 94
[2025-03-25 17:50] VITALS: BP 120/56; TEMP 98.3; O2SAT 98
[2025-03-25 19:32] VITALS: BP 113/63; TEMP 97.9; O2SAT 92
[2025-03-26 04:40] VITALS: BP 120/59; TEMP 98.2; O2SAT 93
[2025-03-26 08:00] VITALS: BP 119/55; TEMP 98.5; O2SAT 92
[2025-03-26] MEDS ORDERED: MIRALAX *UNIT DOSE* 17 GM PACKET PO PRN (08:30)
[2025-03-26] MEDS: predniSONE 10 MG TAB PO SCH (10:08)
[2025-03-26] MEDS: LACTULOSE 20 GM/30 ML SYRUP UDC PO SCH (10:08)
[2025-03-26] MEDS: CEFPODOXIME PROXETIL 200 MG TABLET PO SCH (10:08)
[2025-03-26] MEDS: LORATADINE 10 MG TAB PO SCH (10:09)
[2025-03-26] MEDS: ACETAMINOPHEN 500 MG TAB PO PRN (11:21)
[2025-03-26] MEDS: BENZONATATE 100 MG CAPSULE PO PRN (12:53)
[2025-03-26 14:00] VITALS: BP 117/61; TEMP 98.1; O2SAT 94
[2025-03-26] MEDS: ALBUTEROL SULFATE 2.5 MG/0.5 ML INH CONCENTRATE NEB SOLN NEB SCH (15:15)
[2025-03-26] MEDS: SODIUM CHLORIDE HYPERTONIC 3% 4ML NEB SOL INH SCH (15:15)
[2025-03-26] MEDS: guaiFENesin/CODEINE SYRUP 5 ML UDC PO ONE (15:54)
[2025-03-26] MEDS: FUROSEMIDE 40 MG/4 ML VIAL IV ONE (15:55)
[2025-03-26] MEDS ORDERED: NALOXONE INJ 0.4 MG/1 ML VIAL As Ordered ONE (17:45)
[2025-03-26 18:40] VITALS: BP 122/58; O2SAT 83
[2025-03-26] MEDS ORDERED: SYMBICORT 160/4.5MCG INHALER 6GM INH SCH (20:00)
[2025-03-26] MEDS ORDERED: DEXTROMETHORPHAN 60 MG/10 ML SUSP 90 ML BTL PO SCH (21:00)
[2025-03-26] MEDS ORDERED: LanTUS (INSULIN GLARGINE INJ) 1 UNITS/0.01 ML SC SCH (21:00)
== END 2025-03-26 18:55 | disposition expired | DRG 141 ==
LOC: EDBD 13:55 → M ED 13:55 → M ED INP 13:56 → M MS4PR 03-08 08:10 → OBSVTOIN 03-08 12:22 → M PCU 03-13 16:21 → M MS4PR 03-22 21:35 → M MS5PR 03-25 17:48
PROVIDERS: ADMIT Internal Medicine; ATTEND General Practice
PROC: B246ZZZ Ultrasonography of Right and Left Heart (ICD-10-PCS; principal; 2025-03-14)
DX: J45.901 Unspecified asthma with (acute) exacerbation (principal); J96.01 Acute respiratory failure with hypoxia; I26.99 Other pulmonary embolism without acute cor pulmonale; K31.84 Gastroparesis; J15.9 Unspecified bacterial pneumonia; E87.20 Acidosis, unspecified; E11.65 Type 2 diabetes mellitus with hyperglycemia; E11.43 Type 2 diabetes mellitus with diabetic autonomic (poly)neuropathy; E83.42 Hypomagnesemia; Z66 Do not resuscitate; Z93.2 Ileostomy status; K21.9 Gastro-esophageal reflux disease without esophagitis; E78.5 Hyperlipidemia, unspecified; Z86.711 Personal history of pulmonary embolism; Z86.718 Personal history of other venous thrombosis and embolism; R10.9 Unspecified abdominal pain; G89.4 Chronic pain syndrome; Z79.84 Long term (current) use of oral hypoglycemic drugs; Z79.4 Long term (current) use of insulin; Z79.899 Other long term (current) drug therapy; Z91.040 Latex allergy status; Z88.0 Allergy status to penicillin; Z88.2 Allergy status to sulfonamides; Z91.048 Other nonmedicinal substance allergy status; Z88.1 Allergy status to other antibiotic agents; Z88.5 Allergy status to narcotic agent; Z91.018 Allergy to other foods; Z91.0110 Allergy to milk products, unspecified; Z88.8 Allergy status to other drugs, medicaments and biological substances; T38.0X5A Adverse effect of glucocorticoids and synthetic analogues, initial encounter; B34.8 Other viral infections of unspecified site; K59.00 Constipation, unspecified; J98.11 Atelectasis; Z79.891 Long term (current) use of opiate analgesic; E87.6 Hypokalemia; I46.9 Cardiac arrest, cause unspecified